=== PATIENT | female | born 2000 | race Caucasian/White ===

== ENCOUNTER 2022-12-22 09:01 | Outpatient (REF) | payer BC, SELFPAY ==
[2022-12-22 15:42] LABS: C. Difficile PCR NEGATIVE (NEGATIVE)
== END 2022-12-22 09:02 ==
LOC: LAB 09:01
PROVIDERS: PCP Family Medicine; Visit Provider Internal Medicine
DX: A04.72 Enterocolitis due to Clostridium difficile, not specified as recurrent (principal)
CPT/HCPCS: 87493

== ENCOUNTER 2023-01-08 09:49 | Outpatient (OUT) | payer BC, SELFPAY ==
--- NOTE | 2023-01-08 10:44 | PM.PRESUREVA ---
History of Present Illness History of Present Illness Chief complaint: PAT visit Narrative: Patient presents for preadmission testing. The patient states she has chronic abdominal and pelvic pain. She recently underwent two rounds of fecal microbial transplant to treat her C. difficile and states she is feeling better. She denies vomiting, fever, cough, or any other complaints. Review of Systems ROS Narrative REVIEW OF SYSTEMS: Negative except as stated in HPI, ten or more systems reviewed. Constitutional: No fever , chills, weakness ENT: No sore throat or epistaxis Cardiovascular: No edema, chest pain, palpitations, or activity intolerance Respiratory: No shortness of breath, cough, or wheezing Musculoskeletal: No joint pain or swelling Genitourinary: No dysuria or hematuria Neurological: No numbness, tingling, weakness, or headache Psychiatric: No mood changes PFSH PFS Medical History (Updated 01/08/23 @ 10:26 by Lynette Darden NP) Surgical History (Updated 01/08/23 @ 10:26 by Lynette Darden NP) Family History (Updated 01/08/23 @ 10:26 by Lynette Darden NP) Other Family history of hypertension Family history of prostate cancer Family history of stroke Social History (Updated 01/08/23 @ 10:12 by Lynette Darden NP) Within the past year, how often did you have a drink containing alcohol: never Score interpretation: A score less than 3 is consistent with normal alcohol consumption. 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 Highest level of school completed/degree received: Associate degree: occupational, technical, vocational program Meds Home Medications and Allergies Home Medications Medication Instructions Recorded Confirmed Type ergocalciferol (vitamin D2) 1,250 1,250 mcg PO QDAY 01/08/23 01/08/23 History mcg (50,000 unit) capsule escitalopram oxalate 10 mg tablet 10 mg PO DAILY 01/08/23 01/08/23 History (Lexapro) Allergies Allergy/AdvReac Type Severity Reaction Status Date / Time metronidazole [From Flagyl] Allergy Hives Verified 01/08/23 10:10 Exam Narrative Exam Narrative: Constitutional: Awake, alert, comfortable, well-appearing, nontoxic, interactive, vital signs as charted Head: Normocephalic, atraumatic Neck: Supple, normal appearance, normal range of motion, no meningeal signs, no lymphadenopathy Respiratory: No respiratory distress, breath sounds clear Cardiovascular: Regular rate and rhythm, strong and regular heart tones Abdomen: Nontender, normal bowel sounds, soft, no CVA tenderness Musculoskeletal: Normal gait, no swelling or edema Skin: No rashes or induration, no lesions, only visible skin inspected Neuro: No neurological deficits, normal sensation Psychiatric: Oriented ?3, normal affect Assessment and Plan Assessment and Plan (1) Abdominal pain: (2) Abnormal uterine bleeding: (3) Fallopian tube disorder: (4) Pelvic pain: Plan Diagnostic laparoscopy, chromopertubation, possible MARILOU, possible bilateral salpingo-oophorectomy, possible FOE scheduled with Dr. Burroughs 01/12/2023.
== END 2023-01-08 09:50 ==
PROVIDERS: PCP Family Medicine
DX: Z01.818 Encounter for other preprocedural examination (principal); R10.2 Pelvic and perineal pain; N93.9 Abnormal uterine and vaginal bleeding, unspecified; N83.9 Noninflammatory disorder of ovary, fallopian tube and broad ligament, unspecified
CPT/HCPCS: G0463

== ENCOUNTER 2023-01-12 10:48 | Day surgery (SDC) | payer BC, SELFPAY ==
[2023-01-08 10:13] VITALS: BP 100/66; PULSE 63; RESP 14; TEMP 36.4; O2SAT 98; BMI 19.6
[2023-01-12] VITALS (10 sets, daily range): BP systolic 89–112; BP diastolic 51–84; PULSE 55–83; RESP 12–28; TEMP 36.2; O2SAT 96–100; BMI 19.1
[2023-01-12 10:58] LABS: Hemoglobin 13.7 g/dL (12.0-16.0); Mean Corpuscular HGB Conc 34.3 g/dL (29.9-35.2); Mean Corpuscular Hemoglobin 31.5 pg (26.7-34.0); Mean Platelet Volume 10.1 fL (9.5-13.5); Platelet Count 193 10^3/uL (150-450); Red Blood Count 4.35 10^6/uL (4.20-5.40); Red Cell Distribution Width 11.6 % (11.0-15.0); White Blood Count 4.5 10^3/uL (4.0-11.0)
[2023-01-12 11:14] LABS: HCG Quantitative <1 mIU/mL
[2023-01-12] MEDS: LACTATED RINGER'S SOLUTION 1,000 ML 50 ML IV ×2 (11:41→13:54)
[2023-01-12] MEDS: METHYLENE BLUE 50 MG/10 ML AMPULE INJ (13:04)
--- NOTE | 2023-01-12 13:24 | OP_ITS ---
OPERATION DATE: ??01/12/2023 PROCEDURE:? Diagnostic laparoscopy with chromopertubation.? PREOPERATIVE DIAGNOSIS:? 1.? Pelvic pain. 2.? Possible tubal dysfunction. POSTOPERATIVE DIAGNOSIS: 1.? Pelvic pain. 2.? Possible tubal dysfunction. ANESTHESIA:? General. SURGEON:? Jeremiah Burroughs D.O. CODING MANAGER:? LEONOR Dill BLOOD LOSS:? 5 mL. URINE OUTPUT:? Yellow and clear. FINDINGS:? Normal appearing ovaries, uterus and tubes.? Endometriosis in the posterior cul-de-sac, as well as bladder, and a small piece on the right ovary.? Chromopertubation shows easy spillage from the patient?s left tube.? There, however, was some debris in the right tube, but was able to flushed out with the chromopertubation and, after some time, spillage from the fimbriated end could be seen.? PROCEDURE:? The patient was taken back to the Operating Room where she was placed in dorsal lithotomy position after given general anesthesia. The patient was prepped and draped in normal sterile fashion. A humi manipulator was placed into the patient's cervix and into the utuers.. Attention was turned to the patient's abdomen,where a small umbilical incision was made. The fascia was tented using Albertina clamps and the fascia was entered sharply. Confirmation of intra-abdominal placement of the 10 mm port was confirmed under direct visualization using a laparoscope. The patient's abdomen was then insufflated using CO2 gas with approximately 4 liters. A second port was placed left laterally. This was done under direct visualization with a 5 mm port. Survey of the patient's abdomen demonstrated normal liver and gallbladder. Survey of the patient's pelvic anatomy demonstrated normal appearing ovaries and tubes as well as normal appearing uterus. posterior culdesac endometrial implants could be noted, no evidence of any pelvic disease was seen, normal appearing pelvic cavity. Chromopertubation was performed with spillage from left side easily and delayed spillage from right side with gentle pressure. All instruments were removed from the patient's abdomen. The patient's abdomen was deinsufflated of CO2gas. The patient tolerated the procedure well. Sponge stick was removed from the patient's vagina. The patient's infraumbilical fascia was closed using #0 Vicryl on a GI needle. The patient's skin was closed laterally and infraumbilically using 4-0 Vicryl. The patient tolerated the procedure well. Sponge, lap and needle counts were correct x 2. The patient was taken to Recovery Room in stable condition.? MTDD
--- NOTE | 2023-01-12 13:35 | PC.NURSE ---
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
[2023-01-12] MEDS: MEPERIDINE HCL/PF 25 MG/ML VIAL IVP (13:56)
[2023-01-12] MEDS: HYDROMORPHONE HCL 0.5 MG/0.5 ML SYRINGE IV (14:11)
--- NOTE | 2023-01-12 14:19 | PC.NURSE ---
dressings x2 intact to abdomen with scant bloody drainage on both; peripad with scant bloody drainage
--- NOTE | 2023-01-12 14:23 | PC.NURSE ---
dressings x2 intact to abdomen with scant bloody drainage on both; peripad intact with scant bloody drainage
--- NOTE | 2023-01-12 14:31 | PC.NURSE ---
no change in assessment of drainage on dressings and peripad
--- NOTE | 2023-01-12 14:33 | PC.NURSE ---
medicated for pain as ordered
--- NOTE | 2023-01-12 14:43 | PC.NURSE ---
peripad has dcant bloody drainage; 2 abdominal dressings with scant bloody drainage on each; areas marked
--- NOTE | 2023-01-12 14:59 | PC.NURSE ---
no increase in assessment of wound drainage and no increase ofdrainage on peripad
--- NOTE | 2023-01-12 15:33 | PC.NURSE ---
up to bathroom and voided without difficulty with small amount bloody drainage noted in toliet without clots; no increase in drainage on abdominal dressings
== END 2023-01-12 15:30 | disposition home or self-care (01) ==
PROVIDERS: PCP Family Medicine; Visit Provider Obstetrics & Gynecology
PROC: (CPT 49320; principal; 2023-01-12 12:30)
DX: R10.2 Pelvic and perineal pain (principal); Z79.899 Other long term (current) drug therapy; N93.9 Abnormal uterine and vaginal bleeding, unspecified; R10.9 Unspecified abdominal pain
CPT/HCPCS: 49320; 58350; 36415; 84702; 85027; J1170; J2704

== ENCOUNTER 2023-03-22 09:41 | Outpatient (REF) | payer BC, SELFPAY ==
[2023-03-22 14:18] LABS: C. Difficile PCR POSITIVE (NEGATIVE)
== END 2023-03-22 09:42 | disposition home or self-care (01) ==
LOC: LAB 09:41
PROVIDERS: PCP Family Medicine
DX: R19.7 Diarrhea, unspecified (principal)
CPT/HCPCS: 87493

== ENCOUNTER 2023-03-24 11:18 | Outpatient (REF) | payer BC, SELFPAY ==
[2023-03-24 14:46] LABS: C. Difficile PCR NEGATIVE (NEGATIVE)
== END 2023-03-24 11:19 | disposition home or self-care (01) ==
LOC: LAB 11:18
PROVIDERS: PCP Family Medicine
DX: A04.72 Enterocolitis due to Clostridium difficile, not specified as recurrent (principal)
CPT/HCPCS: 87493

== ENCOUNTER 2023-03-27 14:58 | Outpatient (REF) | payer BC, SELFPAY | END 2023-03-27 14:59 | disposition home or self-care (01) | LOC: LAB 14:58 | PROVIDERS: PCP Family Medicine | DX: R19.7 Diarrhea, unspecified (principal) | CPT/HCPCS: 36415 ==

== ENCOUNTER 2023-04-01 15:55 | Emergency (ER) | payer BC, SELFPAY ==
[2023-04-01 16:02] VITALS: BP 115/70; PULSE 73; RESP 20; TEMP 36.7; O2SAT 99; BMI 19.8
--- NOTE | 2023-04-01 16:21 | ED.GENADUL1 ---
HPI - General Adult General Chief complaint: Abdominal Pain Stated complaint: Adbominal Pain Time Seen by Provider: 04/01/23 16:09 Source: patient Mode of arrival: walk-in Limitations: no limitations History of Present Illness HPI narrative: patient is a 22-year-old female presents to the Emergency Room with concerns of diarrhea, nausea and vomiting. Patient states she has had symptoms for the past week, was tested earlier in the week for C. difficile which was negative per patient. She sees a specialist to [facility] doctor Butler for GI- currently awaiting genetic testing for pancreatitis noted on CT scan. Patient presents today after having three episodes of diarrhea and noticing that her stool was pale/white appearing, denies blood or pus. She has had nausea this morning and one episode of vomiting. Patient took Zofran prior to arrival without relief of nausea. She denies any chest pain or shortness of breath. She reports a constant discomfort in her abdomen like doing a bunch of sit-ups. Currently 03/01. She's had prior surgeries for endometriosis. Patient appears in no distress. She denies any vaginal discharge denies dysuria. Onset (ago): week(s) Location: Reports abdomen Radiation: Reports non-radiation Pain Consistency: Reports constant Relieving factors: Reports none Exacerbating factors: Reports none Treatments prior to arrival: Reports none Related Data Home Medications Medication Instructions Recorded Confirmed escitalopram oxalate 10 mg tablet 10 mg PO DAILY 01/08/23 01/08/23 (Lexapro) Previous Rx's Medication Instructions Recorded ondansetron HCl 4 mg tablet 4 mg PO Q6H PRN nausea and 04/01/23 vomiting #12 tabs Allergies Allergy/AdvReac Type Severity Reaction Status Date / Time metronidazole [From Flagyl] Allergy Hives Verified 01/08/23 10:10 Review of Systems ROS Constitutional Denies: fever or chills Eyes Denies: change in vision Ears, nose, mouth, and throat Denies: throat pain or neck pain Cardiovascular Denies: chest pain, palpitations, edema or swelling of feet/ankles Respiratory Denies: shortness of breath, cough or wheezing Gastrointestinal Reports: abdominal pain, nausea, vomiting and diarrhea; Denies: coffee grounds in vomit, heartburn or excessive passing of gas Genitourinary Denies: painful urination Musculoskeletal Denies: back pain Integumentary/Breast Denies: rash Neurological Denies: headache, numbness in extremities or weakness in extremities Psychiatric Denies: anxiety Endocrine Denies: excessive urination Hematologic/Lymphatic Denies: easy bruising Allergic/Immunologic Denies: hives [facility] Medical History (Updated 04/01/23 @ 17:41 by SHELBY Flores) Surgical History (Updated 01/08/23 @ 10:26 by Lynette Darden NP) Family History (Updated 01/08/23 @ 10:26 by Lynette Darden NP) Other Family history of hypertension Family history of prostate cancer Family history of stroke Social History (Updated 01/12/23 @ 11:36 by Sita Scott RN) Within the past year, how often did you have a drink containing alcohol: never Score interpretation: A score less than 3 is consistent with normal alcohol consumption. 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 General: The patient appears well and in no apparent distress. Patient is resting comfortably on cart. Skin: Warm, dry, no pallor noted.no evidence of hives or rash. Head: Normocephalic, atraumatic Neck: Supple, trachea mid-line, no tenderness, no lymphadenopathy Eye: Pupils are equal, round and reactive to light, EOMI Ears, Nose, Mouth, and Throat: oral mucosa is moist, external exam unremarkable. Cardiovascular: Regular Rate and Rhythm Respiratory: Patient is in no distress, no accessory muscle use, lungs are clear to auscultation, no wheezing, rales or rhonchi. Chest Wall: no tenderness Back: non-tender, no CVA tenderness Musculoskeletal: normal ROM, no tenderness, no swelling GI: Normal bowel sounds, generalized tenderness to palpation, no guarding or rebound. Portal scars from exploratory laparotomy noted history of endometriosis Neurological: A&O x4 Psychiatric: Cooperative Constitutional Vital Signs, click to edit/add: Last Vital Signs Temp 98.1 F 04/01/23 16:02 Pulse 63 04/01/23 17:01 Resp 20 04/01/23 16:02 BP 94/69 04/01/23 17:01 Pulse Ox 100 04/01/23 17:01 O2 Del Method Room Air 04/01/23 16:02 Course Vital Signs Vital signs: Vital Signs Temperature 98.1 F 04/01/23 16:02 Pulse Rate 73 04/01/23 16:02 Respiratory Rate 20 04/01/23 16:02 Blood Pressure 115/70 04/01/23 16:02 Pulse Oximetry 99 04/01/23 16:02 Oxygen Delivery Method Room Air 04/01/23 16:02 Temperature 98.1 F 04/01/23 16:02 Pulse Rate 63 04/01/23 17:01 Respiratory Rate 20 04/01/23 16:02 Blood Pressure 94/69 04/01/23 17:01 Pulse Oximetry 100 04/01/23 17:01 Oxygen Delivery Method Room Air 04/01/23 16:02 Medical Decision Making MDM Narrative Medical decision making narrative: patient is had previous workup earlier this year for recurrent abdominal pain. Patient has had treatments for C. difficile with resolution. Concerned with white stools today, tested with diarrhea earlier in the week negative. Patient notes generalized abdominal soreness. She has had one CT per history of patient had clinical clinic, and is awaiting further testing with her gastrointestinal doctor. Patient medicated for pain here with Toradol, Levsin and Compazine given for nausea. patient reevaluated, no symptoms are improved, discussed laboratory studies. Patient be sent home with a prescription for Zofran as she is almost out. Patient has Bentyl and Levsin at home. She will notify her gastrointestinal surgeon of her complaints and her lab work done here today. Patient will return if symptoms worsen. abdomen nonsurgical The patient is to followup with primary care physician in next 2-3 days or to return to the emergency department should any of the signs or symptoms worsen or new symptoms develop. Patient had questions answered. The patient agrees with the following Diagnosis and Treatment plan and the patient will be discharged home. patient will be sent home with a outpatient order for gastrointestinal stool PCR Medical Records Medical records reviewed: Yes I reviewed the patient's medical records Medical records narrative: this year patient had gallbladder ultrasound, HIDA scann, and CT scan. Lab Data Labs: Lab Results 04/01/23 Range/Units 16:35 WBC 6.8 (4.0-11.0) 10^3/uL RBC 3.97 L (4.20-5.40) 10^6/uL Hgb 12.7 (12.0-16.0) g/dL Hct 36.4 (36.0-48.0) % MCV 91.7 (81.0-99.0) fL MCH 32.0 (26.7-34.0) pg MCHC 34.9 (29.9-35.2) g/dL RDW 11.5 (11.0-15.0) % Plt Count 194 (150-450) 10^3/uL MPV 10.7 (9.5-13.5) fL Neut % (Auto) 55.4 (43.0-75.0) % Lymph % (Auto) 35.3 (20.5-60.0) % Mcculloch % (Auto) 7.2 (1.7-12.0) % Eos % (Auto) 1.2 (0.9-7.0) % Baso % (Auto) 0.6 (0.2-2.0) % Neut # (Auto) 3.8 (1.4-6.5) 10^3/uL Lymph # (Auto) 2.4 (1.2-3.8) 10^3/uL Mcculloch # (Auto) 0.5 (0.3-0.8) 10^3/uL Eos # (Auto) 0.1 (0.0-0.7) 10^3/uL Baso # (Auto) 0.0 (0.0-0.1) 10^3/uL Abs Immat Gran (auto) 0.02 (0.00-0.03) 10^3/uL Imm/Tot Granulo (auto) 0.3 (0.0-0.5) % PT 10.9 (9.0-11.6) sec INR 1.03 Sodium 133 L (136-145) mmol/L Potassium 3.8 (3.5-5.1) mmol/L Chloride 101 (98-107) mmol/L Carbon Dioxide 24.0 (21.0-32.0) mmol/L Anion Gap 11.8 BUN 11.0 (7.0-18.0) mg/dL Creatinine 0.65 (0.55-1.02) mg/dL Est GFR ( Amer) >60 (>=60) Est GFR (Non-Af Amer) >60 (>=60) BUN/Creatinine Ratio 16.9 Glucose 87 (74-106) mg/dL Calcium 9.2 (8.5-10.1) mg/dL Magnesium 1.9 (1.8-2.4) mg/dL Total Bilirubin 0.7 (0.2-1.0) mg/dL AST 14 L (15-37) U/L ALT 15 (14-59) U/L Alkaline Phosphatase 43 L (46-116) U/L Total Protein 7.4 (6.4-8.2) g/dL Albumin 4.2 (3.4-5.0) g/dL Globulin 3.2 g/dL Albumin/Globulin Ratio 1.3 Lipase 41.0 L (73.0-393.0) U/L Serum HCG, Qual Negative (NEGATIVE) Discharge Plan Discharge Chief Complaint: Abdominal Pain Clinical Impression: Nausea, vomiting and diarrhea Patient Disposition: Home, Self-Care Time of Disposition Decision: 17:41 Condition: Good Prescriptions / Home Meds: New ondansetron HCl 4 mg tablet 4 mg PO Q6H PRN (Reason: nausea and vomiting) Qty: 12 0RF No Action escitalopram oxalate [Lexapro] 10 mg tablet 10 mg PO DAILY Instructions: Acute Abdominal Pain (ED) Additional Instructions: contact Dr. Butler office to discuss symptoms Stand Alone Forms: Portal Instructions Referrals: ESPERANZA NOGUERA [Primary Care Provider] - As soon as possible
[2023-04-01] MEDS: 0.9 % SODIUM CHLORIDE 1,000 ML 1000 ML IV (16:22)
[2023-04-01] MEDS: PROCHLORPERAZINE 10 MG/2 ML VIAL 5 MG IV (16:23)
--- NOTE | 2023-04-01 16:27 | PC.NURSE ---
pt presents to ED because pt states that she was out shopping today and walking around. pt states for the last week and a half she has had generalized abdominal pain and also has noticed that bowel movements have been pale in color and almost are white. pt does have hx of chronic pancreatitis and c-diff. also c/o n/v. pt does have zofran at home but not having any relief.
[2023-04-01] MEDS: FAMOTIDINE/PF 20 MG/2 ML VIAL IV (16:56)
[2023-04-01] MEDS: HYOSCYAMINE SULFATE 0.125 MG TAB.SUBL SL (16:57)
[2023-04-01] MEDS: KETOROLAC TROMETHAMINE 30 MG/ML VIAL 15 MG IVP (16:57)
[2023-04-01 17:01] VITALS: BP 94/69; PULSE 63; O2SAT 100
[2023-04-01 17:05] LABS: Basophils Percent Auto 0.6 % (0.2-2.0); Eosinophils Absolute Auto 0.1 10^3/uL (0.0-0.7); Eosinophils Percent Auto 1.2 % (0.9-7.0); Hematocrit 36.4 % (36.0-48.0); Hemoglobin 12.7 g/dL (12.0-16.0); Immature Granulocytes Abs Auto 0.02 10^3/uL (0.00-0.03); Immature Granulocytes Pct Auto 0.3 % (0.0-0.5); Lymphocytes Absolute Auto 2.4 10^3/uL (1.2-3.8); Lymphocytes Percent Auto 35.3 % (20.5-60.0); Mean Corpuscular HGB Conc 34.9 g/dL (29.9-35.2); Mean Corpuscular Volume 91.7 fL (81.0-99.0); Mean Platelet Volume 10.7 fL (9.5-13.5); Monocytes Absolute Auto 0.5 10^3/uL (0.3-0.8); Monocytes Percent Auto 7.2 % (1.7-12.0); Neutrophils Absolute Auto 3.8 10^3/uL (1.4-6.5); Neutrophils Percent Auto 55.4 % (43.0-75.0); Platelet Count 194 10^3/uL (150-450); Red Blood Count 3.97 10^6/uL (4.20-5.40); Red Cell Distribution Width 11.5 % (11.0-15.0); White Blood Count 6.8 10^3/uL (4.0-11.0)
[2023-04-01 17:25] LABS: INR 1.03; Prothrombin Time 10.9 sec (9.0-11.6)
[2023-04-01 17:32] LABS: Alanine Aminotransferase 15 U/L (14-59); Albumin Globulin Ratio 1.3; Albumin Level 4.2 g/dL (3.4-5.0); Alkaline Phosphatase 43 U/L (46-116); Anion Gap 11.8; Aspartate Amino Transferase 14 U/L (15-37); BUN Creatinine Ratio 16.9; Bilirubin Total 0.7 mg/dL (0.2-1.0); Calcium 9.2 mg/dL (8.5-10.1); Chloride 101 mmol/L (98-107); Estimated GFR (African America >60 (>=60); Estimated GFR (Non-African Ame >60 (>=60); Globulin 3.2 g/dL; Glucose 87 mg/dL (74-106); Magnesium 1.9 mg/dL (1.8-2.4); Potassium 3.8 mmol/L (3.5-5.1); Sodium 133 mmol/L (136-145); Total Protein 7.4 g/dL (6.4-8.2)
[2023-04-01 17:36] LABS: HCG Qualitative NEGATIVE (NEGATIVE)
[2023-04-01 17:45] LABS: Bilirubin Urine NEGATIVE (NEGATIVE); Blood Urine NEGATIVE (NEGATIVE); Clarity Urine CLEAR (CLEAR); Color Urine LT. YELLOW (YELLOW); Glucose Urine UA NEGATIVE (NEGATIVE); Ketones Urine 15 mg/dL (NEGATIVE); Leukocyte Esterase Urine NEGATIVE (NEGATIVE); Nitrite Urine NEGATIVE (NEGATIVE); Protein Urine NEGATIVE (NEG/TRACE); Urobilinogen Urine 0.2 EU/dL (0.2-1.0)
[2023-04-01 17:46] LABS: Urine Microscopic Indicated NO
== END 2023-04-01 17:50 | disposition home or self-care (01) ==
PROVIDERS: Personal Emergency Response Attendant; Emergency Provider Emergency Medicine; PCP Family Medicine
DX: R11.2 Nausea with vomiting, unspecified (principal); R19.7 Diarrhea, unspecified
CPT/HCPCS: 36415; 80053; 81003; 83690; 83735; 84703; 85025; 85610; 96361; 96374; 96375; 99285

== ENCOUNTER 2023-04-02 12:09 | Outpatient (REF) | payer BC, SELFPAY ==
[2023-04-02 12:30] LABS: Adenovirus F 40/41 NOT DETECTED (NOT DETECTE); Astrovirus NOT DETECTED (NOT DETECTE); Campylobacter NOT DETECTED (NOT DETECTE); Cryptosporidium NOT DETECTED (NOT DETECTE); Cyclospora cayetanensis NOT DETECTED (NOT DETECTE); Entamoeba histolytica NOT DETECTED (NOT DETECTE); Enteroaggregative E.coli NOT DETECTED (NOT DETECTE); Enteropathogenic E.coli NOT DETECTED (NOT DETECTE); Enterotoxigenic E. coli NOT DETECTED (NOT DETECTE); Giardia lamblia NOT DETECTED (NOT DETECTE); Norovirus GI/GII NOT DETECTED (NOT DETECTE); Plesiomonas shigelloides NOT DETECTED (NOT DETECTE); Rotavirus A NOT DETECTED (NOT DETECTE); Salmonella NOT DETECTED (NOT DETECTE); Sapovirus NOT DETECTED (NOT DETECTE); Shiga-like toxin-producing E.C NOT DETECTED (NOT DETECTE); Shigella/Enteroinvasive E.coli NOT DETECTED (NOT DETECTE); Vibrio NOT DETECTED (NOT DETECTE); Vibrio cholerae NOT DETECTED (NOT DETECTE); Yersinia enterocolitica NOT DETECTED (NOT DETECTE)
== END 2023-04-02 12:10 | disposition home or self-care (01) ==
LOC: LAB 12:09
PROVIDERS: PCP Family Medicine; Visit Provider Personal Emergency Response Attendant
DX: R19.7 Diarrhea, unspecified (principal)
CPT/HCPCS: 87507

== ENCOUNTER 2023-04-18 09:45 | Emergency (ER) | payer BC, SELFPAY ==
[2023-04-18] VITALS (8 sets, daily range): BP systolic 104–130; BP diastolic 67–86; PULSE 74–82; RESP 16–20; TEMP 36.7; O2SAT 97–100; BMI 19.7
--- NOTE | 2023-04-18 10:06 | ED_ITS ---
HPI - Abdominal Pain General Chief Complaint: Abdominal Pain Stated Complaint: TERRIBLE STOMACH PAIN Time Seen by Provider: 04/18/23 09:58 Source: patient Mode of arrival: walk-in Limitations: no limitations History of Present Illness HPI narrative: 22-year-old female presents for abdominal pain. It's in the upper abdomen and in particular the right upper quadrant area. She's had it for a few days. She's had issues with recurrent pancreatitis beginning at age 14. She doesn't know what has caused it but she states that it's not from alcohol. She's had a CAT scan earlier this year that she states showed some calcifications in part of the pancreas. No trauma or fever. She's been nauseous and vomited. The pain is moderate to severe at times. Related Data Home Medications Medication Instructions Recorded Confirmed escitalopram oxalate 10 mg tablet 10 mg PO DAILY 01/08/23 01/08/23 (Lexapro) Previous Rx's Medication Instructions Recorded ondansetron HCl 4 mg tablet 4 mg PO Q6H PRN nausea and 04/01/23 vomiting #12 tabs Allergies Allergy/AdvReac Type Severity Reaction Status Date / Time metronidazole [From Flagyl] Allergy Hives Verified 01/08/23 10:10 Review of Systems ROS Narrative A ten point review of systems is negative except as noted above. [facility] Medical History (Updated 04/18/23 @ 12:49 by Moe Panchal MD) Surgical History (Updated 01/08/23 @ 10:26 by Lynette Darden NP) Family History (Updated 01/08/23 @ 10:26 by Lynette Darden NP) Other Family history of hypertension Family history of prostate cancer Family history of stroke Social History (Updated 01/12/23 @ 11:36 by Sita Scott RN) Within the past year, how often did you have a drink containing alcohol: never Score interpretation: A score less than 3 is consistent with normal alcohol consumption. 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 General: The patient appears well and in no apparent distress. Patient is resting comfortably on cart. Skin: Warm, dry, no pallor noted. There is no rash noted. Head: Normocephalic, atraumatic Eye: Normal conjunctiva, no drainage Ears, Nose, Mouth, and Throat: oral mucosa is moist. Nares patent. Cardiovascular: Regular Rate and Rhythm Respiratory: Patient is in no distress, no accessory muscle use, lungs are clear to auscultation, no wheezing, rales or rhonchi Back: non-tender GI: no distention or masses. Tenderness present in the epigastric area going into the right upper quadrant. Musculoskeletal: The patient has no evidence of calf tenderness, no pitting edema, symmetrical pulses noted bilaterally Neurological: A&O, normal speech Psychiatric: Cooperative, tearful Constitutional Vital Signs, click to edit/add: Last Vital Signs Temp 98.0 F 04/18/23 09:56 Pulse 74 04/18/23 10:26 Resp 16 04/18/23 10:26 BP 111/70 04/18/23 12:00 Pulse Ox 100 04/18/23 12:00 O2 Del Method Room Air 04/18/23 10:26 Course Vital Signs Vital signs: Vital Signs Temperature 98.0 F 04/18/23 09:56 Pulse Rate 82 04/18/23 09:56 Respiratory Rate 20 04/18/23 09:56 Blood Pressure 130/86 04/18/23 09:56 Pulse Oximetry 100 04/18/23 09:56 Oxygen Delivery Method Room Air 04/18/23 09:56 Temperature 98.0 F 04/18/23 09:56 Pulse Rate 74 04/18/23 10:26 Respiratory Rate 16 04/18/23 10:26 Blood Pressure 111/70 04/18/23 12:00 Pulse Oximetry 100 04/18/23 12:00 Oxygen Delivery Method Room Air 04/18/23 10:26 MDM - Abdominal Pain MDM Narrative Medical decision making narrative: Blood work is negative. No evidence of acute pancreatitis. CAT scan suggests the possibility of colitis. She has no lower abdominal pain and has no vaginal discharge or dysuria or pelvic area discomfort. Her symptoms are only in the epigastric area and right upper quadrant. She was offered oral antibiotic for possible colitis but she prefers not to take them. 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 She'll monitor her symptoms and return for worsening symptoms or will call her family physician. Treatment diagnosis and follow-up were discussed with the patient. I also have no clinical suspicion of pelvic inflammatory disease. Differential Diagnosis Differential diagnosis: Likely abdominal pain, constipation, endometriosis, gastroenteritis, pancreatitis and other (colitis) Lab Data Attestation: I reviewed the patient's lab results. Labs: Lab Results 04/18/23 Range/Units 10:15 WBC 4.9 (4.0-11.0) 10^3/uL RBC 4.53 (4.20-5.40) 10^6/uL Hgb 14.6 (12.0-16.0) g/dL Hct 42.6 (36.0-48.0) % MCV 94.0 (81.0-99.0) fL MCH 32.2 (26.7-34.0) pg MCHC 34.3 (29.9-35.2) g/dL RDW 11.4 (11.0-15.0) % Plt Count 207 (150-450) 10^3/uL MPV 10.7 (9.5-13.5) fL Neut % (Auto) 45.1 (43.0-75.0) % Lymph % (Auto) 43.7 (20.5-60.0) % Mitchell % (Auto) 6.1 (1.7-12.0) % Eos % (Auto) 4.1 (0.9-7.0) % Baso % (Auto) 0.8 (0.2-2.0) % Neut # (Auto) 2.2 (1.4-6.5) 10^3/uL Lymph # (Auto) 2.1 (1.2-3.8) 10^3/uL Mitchell # (Auto) 0.3 (0.3-0.8) 10^3/uL Eos # (Auto) 0.2 (0.0-0.7) 10^3/uL Baso # (Auto) 0.0 (0.0-0.1) 10^3/uL Abs Immat Gran (auto) 0.01 (0.00-0.03) 10^3/uL Imm/Tot Granulo (auto) 0.2 (0.0-0.5) % Sodium 139 (136-145) mmol/L Potassium 4.0 (3.5-5.1) mmol/L Chloride 104 (98-107) mmol/L Carbon Dioxide 27.4 (21.0-32.0) mmol/L Anion Gap 11.6 BUN 11.0 (7.0-18.0) mg/dL Creatinine 0.67 (0.55-1.02) mg/dL Est GFR ( Amer) >60 (>=60) Est GFR (Non-Af Amer) >60 (>=60) BUN/Creatinine Ratio 16.4 Glucose 93 (74-106) mg/dL Calcium 9.0 (8.5-10.1) mg/dL Total Bilirubin 0.5 (0.2-1.0) mg/dL Direct Bilirubin 0.1 (0.0-0.2) mg/dL AST 14 L (15-37) U/L ALT 14 (14-59) U/L Alkaline Phosphatase 48 (46-116) U/L Total Protein 7.9 (6.4-8.2) g/dL Albumin 4.2 (3.4-5.0) g/dL Globulin 3.7 g/dL Albumin/Globulin Ratio 1.1 Amylase 43 (25-115) U/L Lipase 67.0 L (73.0-393.0) U/L Serum HCG, Qual Negative (NEGATIVE) Urine Color Lt. yellow (YELLOW) Urine Clarity Clear (CLEAR) Urine pH 6.5 (5.0-9.0) Ur Specific [place] 1.015 (1.005-1.025) Urine Protein 30 A (NEG/TRACE) mg/dL Urine Glucose (UA) Negative (NEGATIVE) mg/dL Urine Ketones Negative (NEGATIVE) mg/dL Urine Occult Blood Negative (NEGATIVE) Urine Nitrite Negative (NEGATIVE) Urine Bilirubin Negative (NEGATIVE) Urine Urobilinogen 0.2 (0.2-1.0) EU/dL Ur Leukocyte Esterase Negative (NEGATIVE) Urine RBC None seen (0-2) #/HPF Urine WBC None seen (NONE SEEN) #/HPF Ur Squamous Epith Cells Few A (NONE/RARE) #/LPF Urine Bacteria None seen (NONE SEEN) #/HPF Urine Mucus None seen (NONE SEEN) Imaging Data CT scan - abdomen: Radiologist's impression: Procedure: CT abdomen pelvis w con EXAM: CT abdomen pelvis w con; [id number] REASON FOR EXAM: RUQ abd pain TECHNIQUE: Helical CT images of the abdomen and pelvis were obtained after the administration of IV contrast. Multiplanar reformats were generated at the scanner. Dose reduction technique used: Automated exposure control and/or adjustment of the mA and/or kV according to patient size and/or use of iterative reconstruction technique. COMPARISON: [facility] 12/01/[address] abdomen/pelvis 10/18/2022. FINDINGS: Visualized Chest: No pleural effusion or any significant pulmonary findings. Abdomen: Liver: Within normal limits. Gallbladder: No calcified gallstones. No acute inflammatory changes. Bile Ducts: No significant biliary ductal dilatation. Pancreas: No mass, ductal dilatation, or inflammatory changes. Spleen: No splenomegaly or focal lesion. Adrenals: No nodules. Kidneys: -No stones or hydronephrosis. -Simple right renal cyst measuring 18 mm. Vascular: -Focal stenosis of the left renal vein as it passes between the aorta and the SMA (series 3 image 31). There is prominent pelvic vasculature. Lymph Nodes: No adenopathy. Abdominal Wall: No hernia or mass. Pelvis: Ill-defined fat stranding in the posterior pelvis. No mass or adenopathy. Bowel/Peritoneal Cavity/Mesentery: -Apparent wall thickening and perirectal fat stranding (for example series 3 image 110). The sigmoid appears within normal limits. -No bowel obstruction or significant ileus. -The appendix is normal.-No free air or free fluid. Musculoskeletal: No acute fracture or suspicious osseous lesion. IMPRESSION: 1. Ill-defined inflammatory changes in the pelvis centered around the rectum which appears to have moderate wall thickening. Findings are suspect for distal colitis, however, the differential also includes pelvic inflammatory disease. 2. No other potentially acute intra-abdominal abnormality demonstrated. 3. Prominent pelvic vasculature which could be reactive or physiologic versus pelvic congestion syndrome secondary to narrowing of the left renal vein as it passes between the SMA and aorta. Electronically authenticated by: LUIS RINCON Date: 04/18/2023 12:04 Discharge Plan Discharge Chief Complaint: Abdominal Pain Clinical Impression: Abdominal pain Patient Disposition: Home, Self-Care Time of Disposition Decision: 12:49 Condition: Good Mode of Transportation: Private Vehicle Prescriptions / Home Meds: No Action escitalopram oxalate [Lexapro] 10 mg tablet 10 mg PO DAILY ondansetron HCl 4 mg tablet 4 mg PO Q6H PRN (Reason: nausea and vomiting) Qty: 12 0RF Instructions: Abdominal Pain (ED) Additional Instructions: return or call your physician for worsening symptoms Stand Alone Forms: Portal Instructions Referrals: ESPERANZA NOGUERA [Primary Care Provider] - 1 week
[2023-04-18] MEDS: ONDANSETRON PF 4 MG/2 ML VIAL IV (10:22)
[2023-04-18] MEDS: MORPHINE SULFATE 4 MG/ML VIAL IV (10:22)
[2023-04-18 10:26] LABS: Bilirubin Urine NEGATIVE (NEGATIVE); Blood Urine NEGATIVE (NEGATIVE); Clarity Urine CLEAR (CLEAR); Color Urine LT. YELLOW (YELLOW); Glucose Urine UA NEGATIVE (NEGATIVE); Ketones Urine NEGATIVE (NEGATIVE); Leukocyte Esterase Urine NEGATIVE (NEGATIVE); Nitrite Urine NEGATIVE (NEGATIVE); Protein Urine 30 mg/dL (NEG/TRACE); Specific Gravity Urine 1.015 (1.005-1.025); Urobilinogen Urine 0.2 EU/dL (0.2-1.0); pH Urine 6.5 (5.0-9.0)
[2023-04-18 10:30] LABS: Basophils Percent Auto 0.8 % (0.2-2.0); Eosinophils Absolute Auto 0.2 10^3/uL (0.0-0.7); Eosinophils Percent Auto 4.1 % (0.9-7.0); Hematocrit 42.6 % (36.0-48.0); Hemoglobin 14.6 g/dL (12.0-16.0); Immature Granulocytes Abs Auto 0.01 10^3/uL (0.00-0.03); Immature Granulocytes Pct Auto 0.2 % (0.0-0.5); Lymphocytes Absolute Auto 2.1 10^3/uL (1.2-3.8); Lymphocytes Percent Auto 43.7 % (20.5-60.0); Mean Corpuscular HGB Conc 34.3 g/dL (29.9-35.2); Mean Corpuscular Hemoglobin 32.2 pg (26.7-34.0); Mean Platelet Volume 10.7 fL (9.5-13.5); Monocytes Absolute Auto 0.3 10^3/uL (0.3-0.8); Monocytes Percent Auto 6.1 % (1.7-12.0); Neutrophils Absolute Auto 2.2 10^3/uL (1.4-6.5); Neutrophils Percent Auto 45.1 % (43.0-75.0); Platelet Count 207 10^3/uL (150-450); Red Blood Count 4.53 10^6/uL (4.20-5.40); Red Cell Distribution Width 11.4 % (11.0-15.0); White Blood Count 4.9 10^3/uL (4.0-11.0)
[2023-04-18 10:39] LABS: Bacteria Urine NONE SEEN #/HPF (NONE SEEN); Mucus Urine NONE SEEN (NONE SEEN); RBC Urine NONE SEEN #/HPF (0-2); Squamous Epithelial Cell Urine FEW #/LPF (NONE/RARE); WBC Urine NONE SEEN #/HPF (NONE SEEN)
[2023-04-18 10:43] LABS: Alanine Aminotransferase 14 U/L (14-59); Albumin Globulin Ratio 1.1; Albumin Level 4.2 g/dL (3.4-5.0); Alkaline Phosphatase 48 U/L (46-116); Amylase 43 U/L (25-115); Anion Gap 11.6; Aspartate Amino Transferase 14 U/L (15-37); BUN Creatinine Ratio 16.4; Bilirubin Direct 0.1 mg/dL (0.0-0.2); Bilirubin Total 0.5 mg/dL (0.2-1.0); Carbon Dioxide 27.4 mmol/L (21.0-32.0); Chloride 104 mmol/L (98-107); Estimated GFR (African America >60 (>=60); Estimated GFR (Non-African Ame >60 (>=60); Globulin 3.7 g/dL; Glucose 93 mg/dL (74-106); Sodium 139 mmol/L (136-145); Total Protein 7.9 g/dL (6.4-8.2)
[2023-04-18 11:12] LABS: HCG Qualitative NEGATIVE (NEGATIVE)
--- NOTE | 2023-04-18 11:16 | CT_ITS ---
[address] [address] Patient Name: CHIOMA ALONZO MRN: [id number] date: 2000 Sex: F Assigned Patient Location: ER Current Patient Location: ER Accession/Order Number: [id number] Exam Date: 04/18/2023 11:28 Report Date: 04/18/2023 12:04 At the request of: ELVIE APODACA Procedure: CT abdomen pelvis w con EXAM: CT abdomen pelvis w con; [id number] REASON FOR EXAM: RUQ abd pain TECHNIQUE: Helical CT images of the abdomen and pelvis were obtained after the administration of IV contrast. Multiplanar reformats were generated at the scanner. Dose reduction technique used: Automated exposure control and/or adjustment of the mA and/or kV according to patient size and/or use of iterative reconstruction technique. COMPARISON: [facility] 12/01/[address] abdomen/pelvis 10/18/2022. FINDINGS: Visualized Chest: No pleural effusion or any significant pulmonary findings. Abdomen: Liver: Within normal limits. Gallbladder: No calcified gallstones. No acute inflammatory changes. Bile Ducts: No significant biliary ductal dilatation. Pancreas: No mass, ductal dilatation, or inflammatory changes. Spleen: No splenomegaly or focal lesion. Adrenals: No nodules. Kidneys: -No stones or hydronephrosis. -Simple right renal cyst measuring 18 mm. Vascular: -Focal stenosis of the left renal vein as it passes between the aorta and the SMA (series 3 image 31). There is prominent pelvic vasculature. Lymph Nodes: No adenopathy. Abdominal Wall: No hernia or mass. Pelvis: Ill-defined fat stranding in the posterior pelvis. No mass or adenopathy. Bowel/Peritoneal Cavity/Mesentery: -Apparent wall thickening and perirectal fat stranding (for example series 3 image 110). The sigmoid appears within normal limits. -No bowel obstruction or significant ileus. -The appendix is normal.-No free air or free fluid. Musculoskeletal: No acute fracture or suspicious osseous lesion. CT/CT abdomen pelvis w con IMPRESSION: 1. Ill-defined inflammatory changes in the pelvis centered around the rectum which appears to have moderate wall thickening. Findings are suspect for distal colitis, however, the differential also includes pelvic inflammatory disease. 2. No other potentially acute intra-abdominal abnormality demonstrated. 3. Prominent pelvic vasculature which could be reactive or physiologic versus pelvic congestion syndrome secondary to narrowing of the left renal vein as it passes between the SMA and aorta. Electronically authenticated by: LUIS RINCON Date: 04/18/2023 12:04
== END 2023-04-18 13:11 | disposition home or self-care (01) ==
PROVIDERS: Emergency Provider Emergency Medicine; PCP Family Medicine
DX: R10.11 Right upper quadrant pain (principal); R11.2 Nausea with vomiting, unspecified; R10.13 Epigastric pain
CPT/HCPCS: 36415; 74177; 80048; 80076; 81001; 82150; 83690; 84703; 85025; 99284; Q9967

== ENCOUNTER 2023-04-25 08:21 | Outpatient (OUT) | payer BC, SELFPAY ==
[2023-04-25 09:32] LABS: Free T4 0.98 ng/dL (0.76-1.46)
[2023-04-25 09:44] LABS: Free T3 3.17 pg/mL (2.18-3.98); Thyroid Stimulating Hormone 1.348 uIU/mL (0.358-3.740)
[2023-04-26 14:08] LABS: Insulin 5.9 uIU/mL (2.6-24.9)
[2023-05-01 13:07] LABS: Free Testosterone(Direct) 1.2 pg/mL (0.0-4.2); Testosterone 38 ng/dL (13-71)
== END 2023-04-25 08:22 | disposition home or self-care (01) ==
LOC: LAB 08:21
PROVIDERS: PCP Family Medicine; Visit Provider Family Medicine
DX: R23.2 Flushing (principal); R61 Generalized hyperhidrosis; E16.2 Hypoglycemia, unspecified
CPT/HCPCS: 36415; 83525; 84402; 84403; 84439; 84443; 84481

== ENCOUNTER 2023-05-08 15:57 | Emergency (ER) | payer BC, SELFPAY ==
[2023-05-08 16:00] VITALS: BP 144/74; PULSE 80; RESP 18; TEMP 37.2; O2SAT 100
--- NOTE | 2023-05-08 16:26 | ED_ITS ---
HPI - Abdominal Pain General Chief Complaint: Abdominal Pain Stated Complaint: Abdominal Pain Time Seen by Provider: 05/08/23 16:05 Source: patient Mode of arrival: walk-in Limitations: no limitations History of Present Illness HPI narrative: patient is a 22-year-old female with a history of recurrent pancreatitis since age 14 who presents to the Emergency Room for a two day history of pain in the right upper quadrant radiating into the right shoulder. She states she is concerned she may have pancreatitis again. She states it has been several years since her last exacerbation. She does not currently take any medications for her stomach. She is not concerned for , she does not take control, she has had no history of deep vein thrombosis or PE and has not had any upper respiratory symptoms, hemoptysis or extremity swelling. She states she had laparoscopic surgery four months ago for endometriosis. she denies fevers. She denies urinary symptoms. She has had vomiting and diarrhea. Related Data Home Medications Medication Instructions Recorded Confirmed escitalopram oxalate 10 mg tablet 10 mg PO DAILY 01/08/23 05/08/23 (Lexapro) Previous Rx's Medication Instructions Recorded dicyclomine 20 mg tablet 20 mg PO QID PRN abdominal pain 05/08/23 #12 tabs hydrocodone 5 mg-acetaminophen 325 1 tab PO Q6H PRN pain #12 tabs 05/08/23 mg tablet ondansetron 4 mg disintegrating 4 mg PO Q6H PRN nausea and 05/08/23 tablet vomiting #12 tabs pantoprazole 40 mg tablet,delayed 40 mg PO DAILY #7 tabs 05/08/23 release (Protonix) Allergies Allergy/AdvReac Type Severity Reaction Status Date / Time metronidazole [From Flagyl] Allergy Hives Verified 01/08/23 10:10 Review of Systems ROS Constitutional Denies: fever or chills Ears, nose, mouth, and throat Denies: throat pain Cardiovascular Denies: chest pain Respiratory Denies: shortness of breath or cough Gastrointestinal Reports: abdominal pain, nausea, vomiting and diarrhea Genitourinary Denies: painful urination Musculoskeletal Reports: back pain; Denies: neck pain Integumentary/Breast Denies: rash Neurological Denies: headache Endocrine Denies: excessive urination Allergic/Immunologic Denies: hives [facility] Medical History (Updated 05/08/23 @ 17:36 by SHELBY Junior) Abdominal pain ?R10.9 - Unspecified abdominal pain (ICD-10) Abnormal uterine bleeding ?N93.9 - Abnormal uterine and vaginal bleeding, unspecified (ICD-10) Acute sinusitis due to respiratory syncytial virus (RSV) ?J01.90 - Acute sinusitis, unspecified (ICD-10) ?B97.4 - Respiratory syncytial virus as the cause of diseases classified elsewhere (ICD-10) Altered bowel function ?R19.8 - Other specified symptoms and signs involving the digestive system and abdomen (ICD-10) Anxiety ?F41.9 - Anxiety disorder, unspecified (ICD-10) Back pain ?M54.9 - Dorsalgia, unspecified (ICD-10) Clostridium difficile infection ?A49.8 - Other bacterial infections of unspecified site (ICD-10) COVID-19 ?U07.1 - COVID-19 (ICD-10) Dehydration ?E86.0 - Dehydration (ICD-10) Depression ?F32.A - Depression, unspecified (ICD-10) Diarrhea ?R19.7 - Diarrhea, unspecified (ICD-10) Epigastric pain ?R10.13 - Epigastric pain (ICD-10) Fallopian tube disorder ?N83.9 - Noninflammatory disorder of ovary, fallopian tube and broad ligament, unspecified (ICD-10) Fatigue ?R53.83 - Other fatigue (ICD-10) GERD (gastroesophageal reflux disease) ?K21.9 - Gastro-esophageal reflux disease without esophagitis (ICD-10) IBS (irritable bowel syndrome) ?K58.9 - Irritable bowel syndrome without diarrhea (ICD-10) Insomnia ?G47.00 - Insomnia, unspecified (ICD-10) Low vitamin D level ?R79.89 - Other specified abnormal findings of blood chemistry (ICD-10) Muscle weakness ?M62.81 - Muscle weakness (generalized) (ICD-10) Nausea ?R11.0 - Nausea (ICD-10) Ovarian cyst ?N83.209 - Unspecified ovarian cyst, unspecified side (ICD-10) Palpitations ?R00.2 - Palpitations (ICD-10) Pancreatitis ?K85.90 - Acute pancreatitis without necrosis or infection, unspecified (ICD- 10) Paresthesia ?R20.2 - Paresthesia of skin (ICD-10) Paresthesia and pain of extremity ?R20.2 - Paresthesia of skin (ICD-10) ?M79.609 - Pain in unspecified limb (ICD-10) Pelvic pain ?R10.2 - Pelvic and perineal pain (ICD-10) Pleurisy ?R09.1 - Pleurisy (ICD-10) Shoulder pain ?M25.519 - Pain in unspecified shoulder (ICD-10) 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 - Personal history of other medical treatment (ICD-10) Syncope ?R55 - Syncope and collapse (ICD-10) Surgical History (Updated 01/08/23 @ 10:26 by Lynette Darden NP) History of colonoscopy ?Z98.890 - Other specified postprocedural states (ICD-10) History of esophagogastroduodenoscopy (EGD) ?Z98.890 - Other specified postprocedural states (ICD-10) History of removal of skin mole ?Z98.890 - Other specified postprocedural states (ICD-10) ?Z87.2 - Personal history of diseases of the skin and subcutaneous tissue (ICD-10) History of wisdom tooth extraction ?K08.409 - Partial loss of teeth, unspecified cause, unspecified class (ICD- 10) Family History (Updated 01/08/23 @ 10:26 by Lynetet Darden NP) Other Family history of hypertension Family history of prostate cancer Family history of stroke Social History Within the past year, how often did you have a drink containing alcohol: never Score interpretation: A score less than 3 is consistent with normal alcohol consumption. 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 Highest level of school completed/degree received: Associate degree: occupational, technical, vocational program Exam Narrative Exam Narrative: Gen.: Awake, alert, in no distress Head: Normocephalic, atraumatic ENT: Moist mucous membranes Respiratory: No respiratory distress, lungs clear bilaterally Cardio: Regular rate and rhythm Gastrointestinal: Abdomen is soft, nondistended and tender to palpation in the right upper quadrant and epigastrium with voluntary guarding, no rebound Extremities: Moves extremities equally, no extremity swelling Psych: Normal mood and affect Neuro: No focal neuro deficit Skin: Warm, dry, intact Constitutional Vital Signs, click to edit/add: Last Vital Signs Temp 98.9 F 05/08/23 16:00 Pulse 80 05/08/23 16:00 Resp 18 05/08/23 16:00 BP 144/74 H 05/08/23 16:00 Pulse Ox 100 05/08/23 16:00 Course Vital Signs Vital signs: Vital Signs Temperature 98.9 F 05/08/23 16:00 Pulse Rate 80 05/08/23 16:00 Respiratory Rate 18 05/08/23 16:00 Blood Pressure 144/74 H 05/08/23 16:00 Pulse Oximetry 100 05/08/23 16:00 Temperature 98.9 F 05/08/23 16:00 Pulse Rate 80 05/08/23 16:00 Respiratory Rate 18 05/08/23 16:00 Blood Pressure 144/74 H 05/08/23 16:00 Pulse Oximetry 100 05/08/23 16:00 MDM - Abdominal Pain MDM Narrative Medical decision making narrative: patient treated with IV fluids, Dilaudid, Zofran, Pepcid. Her lab studies including LFTs, bilirubin, lipase and amylase are unremarkable. No evidence of pancreatitis at this time. Patient had a CT scan of her abdomen and pelvis two weeks ago in this emergency department. She would like to defer additional imaging which is appropriate. She has no PE risk factors. Vital signs are stable and abdomen is soft and benign on recheck by attending physician. Patient will be discharged home with a short course of analgesics, Protonix, Zofran. Follow- up with gastrointestinal as scheduled and returnn to the Emergency Room if symptoms change or worsen. Medical Records Attestation: I reviewed the patient's medical records. Lab Data Attestation: I reviewed the patient's lab results. Labs: Lab Results 05/08/23 Range/Units 16:36 WBC 4.1 (4.0-11.0) 10^3/uL RBC 3.89 L (4.20-5.40) 10^6/uL Hgb 12.4 (12.0-16.0) g/dL Hct 36.2 (36.0-48.0) % MCV 93.1 (81.0-99.0) fL MCH 31.9 (26.7-34.0) pg MCHC 34.3 (29.9-35.2) g/dL RDW 11.8 (11.0-15.0) % Plt Count 154 (150-450) 10^3/uL MPV 10.9 (9.5-13.5) fL Neut % (Auto) 60.5 (43.0-75.0) % Lymph % (Auto) 24.4 (20.5-60.0) % Pope % (Auto) 11.0 (1.7-12.0) % Eos % (Auto) 3.2 (0.9-7.0) % Baso % (Auto) 0.7 (0.2-2.0) % Neut # (Auto) 2.5 (1.4-6.5) 10^3/uL Lymph # (Auto) 1.0 L (1.2-3.8) 10^3/uL Pope # (Auto) 0.5 (0.3-0.8) 10^3/uL Eos # (Auto) 0.1 (0.0-0.7) 10^3/uL Baso # (Auto) 0.0 (0.0-0.1) 10^3/uL Abs Immat Gran (auto) 0.01 (0.00-0.03) 10^3/uL Imm/Tot Granulo (auto) 0.2 (0.0-0.5) % Sodium 138 (136-145) mmol/L Potassium 3.3 L (3.5-5.1) mmol/L Chloride 103 (98-107) mmol/L Carbon Dioxide 27.3 (21.0-32.0) mmol/L Anion Gap 11.0 BUN 15.0 (7.0-18.0) mg/dL Creatinine 0.70 (0.55-1.02) mg/dL Est GFR ( Amer) >60 (>=60) Est GFR (Non-Af Amer) >60 (>=60) BUN/Creatinine Ratio 21.4 Glucose 99 (74-106) mg/dL Lactate 0.6 (0.4-2.0) mmol/L Calcium 9.1 (8.5-10.1) mg/dL Total Bilirubin 0.4 (0.2-1.0) mg/dL AST 16 (15-37) U/L ALT 15 (14-59) U/L Alkaline Phosphatase 50 (46-116) U/L Total Protein 7.6 (6.4-8.2) g/dL Albumin 4.1 (3.4-5.0) g/dL Globulin 3.5 g/dL Albumin/Globulin Ratio 1.2 Amylase 43 (25-115) U/L Lipase 28.0 (16.0-77.0) U/L Serum HCG, Qual Negative (NEGATIVE) Discharge Plan Discharge Chief Complaint: Abdominal Pain Clinical Impression: Abdominal pain Patient Disposition: Home, Self-Care Time of Disposition Decision: 17:36 Condition: Good Prescriptions / Home Meds: New hydrocodone-acetaminophen 5-325 mg tablet 1 tab PO Q6H PRN (Reason: pain) Qty: 12 0RF dicyclomine 20 mg tablet 20 mg PO QID PRN (Reason: abdominal pain) Qty: 12 0RF pantoprazole [Protonix] 40 mg tablet,delayed release (DR/EC) 40 mg PO DAILY Qty: 7 0RF ondansetron 4 mg tablet,disintegrating 4 mg PO Q6H PRN (Reason: nausea and vomiting) Qty: 12 0RF No Action escitalopram oxalate [Lexapro] 10 mg tablet 10 mg PO DAILY Instructions: Abdominal Pain (ED) Stand Alone Forms: Portal Instructions Referrals: ESPERANZA NOGUERA [Primary Care Provider] - 1 week
[2023-05-08] MEDS: 0.9 % SODIUM CHLORIDE 1,000 ML 999 ML IV (16:56)
[2023-05-08] MEDS: FAMOTIDINE/PF 20 MG/2 ML VIAL IV (16:59)
[2023-05-08] MEDS: ONDANSETRON PF 4 MG/2 ML VIAL IV (16:59)
[2023-05-08] MEDS: HYDROMORPHONE HCL 1 MG/ML CARTRIDGE IVP (16:59)
[2023-05-08 17:03] LABS: Basophils Percent Auto 0.7 % (0.2-2.0); Eosinophils Absolute Auto 0.1 10^3/uL (0.0-0.7); Eosinophils Percent Auto 3.2 % (0.9-7.0); Hematocrit 36.2 % (36.0-48.0); Hemoglobin 12.4 g/dL (12.0-16.0); Immature Granulocytes Abs Auto 0.01 10^3/uL (0.00-0.03); Immature Granulocytes Pct Auto 0.2 % (0.0-0.5); Lymphocytes Percent Auto 24.4 % (20.5-60.0); Mean Corpuscular HGB Conc 34.3 g/dL (29.9-35.2); Mean Corpuscular Hemoglobin 31.9 pg (26.7-34.0); Mean Corpuscular Volume 93.1 fL (81.0-99.0); Mean Platelet Volume 10.9 fL (9.5-13.5); Monocytes Absolute Auto 0.5 10^3/uL (0.3-0.8); Neutrophils Absolute Auto 2.5 10^3/uL (1.4-6.5); Neutrophils Percent Auto 60.5 % (43.0-75.0); Platelet Count 154 10^3/uL (150-450); Red Blood Count 3.89 10^6/uL (4.20-5.40); Red Cell Distribution Width 11.8 % (11.0-15.0); White Blood Count 4.1 10^3/uL (4.0-11.0)
[2023-05-08 17:11] LABS: HCG Qualitative NEGATIVE (NEGATIVE)
[2023-05-08 17:14] LABS: Lactate/Lactic Acid 0.6 mmol/L (0.4-2.0)
[2023-05-08 17:21] LABS: Alanine Aminotransferase 15 U/L (14-59); Albumin Globulin Ratio 1.2; Albumin Level 4.1 g/dL (3.4-5.0); Alkaline Phosphatase 50 U/L (46-116); Amylase 43 U/L (25-115); Aspartate Amino Transferase 16 U/L (15-37); BUN Creatinine Ratio 21.4; Bilirubin Total 0.4 mg/dL (0.2-1.0); Calcium 9.1 mg/dL (8.5-10.1); Carbon Dioxide 27.3 mmol/L (21.0-32.0); Chloride 103 mmol/L (98-107); Estimated GFR (African America >60 (>=60); Estimated GFR (Non-African Ame >60 (>=60); Globulin 3.5 g/dL; Glucose 99 mg/dL (74-106); Potassium 3.3 mmol/L (3.5-5.1); Sodium 138 mmol/L (136-145); Total Protein 7.6 g/dL (6.4-8.2)
[2023-05-08 17:49] VITALS: BP 116/65; PULSE 78; RESP 16; O2SAT 99
== END 2023-05-08 17:55 | disposition home or self-care (01) ==
PROVIDERS: Physician Assistant; Emergency Provider Emergency Medicine; PCP Family Medicine
DX: R10.9 Unspecified abdominal pain (principal); F41.9 Anxiety disorder, unspecified; Z86.16 Personal history of COVID-19; F32.A Depression, unspecified; K21.9 Gastro-esophageal reflux disease without esophagitis; K58.9 Irritable bowel syndrome, unspecified; G47.00 Insomnia, unspecified; Z92.89 Personal history of other medical treatment; Z98.890 Other specified postprocedural states; F12.90 Cannabis use, unspecified, uncomplicated; Z79.899 Other long term (current) drug therapy
CPT/HCPCS: 36415; 80053; 82150; 83605; 83690; 84703; 85025; 96374; 96375; 99285; J1170

== ENCOUNTER 2023-10-23 07:14 | Emergency (ER) | payer BC, SELFPAY ==
[2023-10-23 07:24] VITALS: BP 127/69; PULSE 71; TEMP 36.4; O2SAT 100; BMI 19.7
--- NOTE | 2023-10-23 07:35 | ECG_ITS ---
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
--- NOTE | 2023-10-23 07:35 | XR_ITS ---
The [address] [address] Patient Name: CHIOMA ALONZO MRN: [id number] date: 2000 Sex: F Assigned Patient Location: ER Current Patient Location: ER Accession/Order Number: [id number] Exam Date: 10/23/2023 07:59 Report Date: 10/23/2023 08:26 At the request of: ELVIE APODACA Procedure: XR chest 1V EXAMINATION: XR chest 1V HISTORY: Palpitations , bradycardia COMPARISON: XR RIBS with PA chest 03/11/2021 FINDINGS: LUNGS: Mild haziness within medial right lung base partially obscuring the bronchovascular markings. VASCULATURE: No increased pulmonary vasculature. PLEURA: No pneumothorax, effusion, or pleural thickening. CARDIAC: No cardiomegaly or cardiac silhouette abnormality. MEDIASTINUM: No visible mass or adenopathy. BONES: No fracture or visible bone lesion. OTHER: Negative. XR/XR chest 1V IMPRESSION: 1. Mild infiltrates versus atelectasis within medial right lung base. Although this could represent overlying soft tissue summation artifact, lung parenchymal findings are favored. Electronically authenticated by: AZAEL GRIFFIN Date: 10/23/2023 08:26
--- NOTE | 2023-10-23 07:35 | ED.ARRPALP1 ---
HPI - Arrhythmia/Palpitations General Chief Complaint: Arrhythmia/Palpitations Stated Complaint: LOW HEART RATE, WEAK Time Seen by Provider: 10/23/23 07:20 Source: patient Mode of arrival: walk-in Limitations: no limitations History of Present Illness HPI narrative: 22-year-old female presented for low heart rate. She checked her heart rate at home because she was feeling somewhat dizzy and it was reading low. She recently saw the driver license reviewing officer for medical clearance for cholecystectomy and she was cleared for surgery. She appears to have worn a heart rate monitor. She has had no fever or syncope. No vomiting or abdominal pain but she has chronic diarrhea. Related Data Home Medications ?Medication ?Instructions ?Recorded ?Confirmed escitalopram oxalate 10 mg tablet 10 mg PO DAILY 01/08/23 05/08/23 (Lexapro) Previous Rx's ?Medication ?Instructions ?Recorded dicyclomine 20 mg tablet 20 mg PO QID PRN abdominal pain 05/08/23 #12 tabs hydrocodone 5 mg-acetaminophen 325 1 tab PO Q6H PRN pain #12 tabs 05/08/23 mg tablet ondansetron 4 mg disintegrating 4 mg PO Q6H PRN nausea and 05/08/23 tablet vomiting #12 tabs pantoprazole 40 mg tablet,delayed 40 mg PO DAILY #7 tabs 05/08/23 release (Protonix) Allergies Allergy/AdvReac Type Severity Reaction Status Date / Time metronidazole [From Flagyl] Allergy Hives Verified 01/08/23 10:10 Review of Systems ROS Narrative A ten point review of systems is negative except as noted above. She has chronic diarrhea [facility] Medical History (Updated 10/23/23 @ 08:47 by Moe Panchal MD) Epigastric pain ?R10.13 - Epigastric pain (ICD-10) Nausea ?R11.0 - Nausea (ICD-10) Acute sinusitis due to respiratory syncytial virus (RSV) ?J01.90 - Acute sinusitis, unspecified (ICD-10) ?B97.4 - Respiratory syncytial virus as the cause of diseases classified elsewhere (ICD-10) Shoulder pain ?M25.519 - Pain in unspecified shoulder (ICD-10) Syncope ?R55 - Syncope and collapse (ICD-10) Paresthesia and pain of extremity ?R20.2 - Paresthesia of skin (ICD-10) ?M79.609 - Pain in unspecified limb (ICD-10) Paresthesia ?R20.2 - Paresthesia of skin (ICD-10) Back pain ?M54.9 - Dorsalgia, unspecified (ICD-10) Insomnia ?G47.00 - Insomnia, unspecified (ICD-10) Depression ?F32.A - Depression, unspecified (ICD-10) Anxiety ?F41.9 - Anxiety disorder, unspecified (ICD-10) COVID-19 ?U07.1 - COVID-19 (ICD-10) Pleurisy ?R09.1 - Pleurisy (ICD-10) IBS (irritable bowel syndrome) ?K58.9 - Irritable bowel syndrome without diarrhea (ICD-10) GERD (gastroesophageal reflux disease) ?K21.9 - Gastro-esophageal reflux disease without esophagitis (ICD-10) Palpitations ?R00.2 - Palpitations (ICD-10) Low vitamin D level ?R79.89 - Other specified abnormal findings of blood chemistry (ICD-10) Fatigue ?R53.83 - Other fatigue (ICD-10) Ovarian cyst ?N83.209 - Unspecified ovarian cyst, unspecified side (ICD-10) Pancreatitis ?K85.90 - Acute pancreatitis without necrosis or infection, unspecified (ICD-10) Abdominal pain ?R10.9 - Unspecified abdominal pain (ICD-10) Altered bowel function ?R19.8 - Other specified symptoms and signs involving the digestive system and abdomen (ICD-10) Diarrhea ?R19.7 - Diarrhea, unspecified (ICD-10) Abnormal uterine bleeding ?N93.9 - Abnormal uterine and vaginal bleeding, unspecified (ICD-10) Pelvic pain ?R10.2 - Pelvic and perineal pain (ICD-10) Fallopian tube disorder ?N83.9 - Noninflammatory disorder of ovary, fallopian tube and broad ligament, unspecified (ICD-10) Muscle weakness ?M62.81 - Muscle weakness (generalized) (ICD-10) Dehydration ?E86.0 - Dehydration (ICD-10) Clostridium difficile infection ?A49.8 - Other bacterial infections of unspecified site (ICD-10) 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 - Personal history of other medical treatment (ICD-10) Surgical History (Updated 01/08/23 @ 10:26 by Lynette Darden NP) History of removal of skin mole ?Z98.890 - Other specified postprocedural states (ICD-10) ?Z87.2 - Personal history of diseases of the skin and subcutaneous tissue (ICD-10) History of wisdom tooth extraction ?K08.409 - Partial loss of teeth, unspecified cause, unspecified class (ICD-10) History of esophagogastroduodenoscopy (EGD) ?Z98.890 - Other specified postprocedural states (ICD-10) History of colonoscopy ?Z98.890 - Other specified postprocedural states (ICD-10) Family History (Updated 01/08/23 @ 10:26 by Lynette Darden NP) Other Family history of hypertension Family history of prostate cancer Family history of stroke Social History Within the past year, how often did you have a drink containing alcohol: never Score interpretation: A score less than 3 is consistent with normal alcohol consumption. 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 General: The patient appears well and in no apparent distress. Patient is resting comfortably on cart. Skin: Warm, dry, no pallor noted. There is no rash noted. Head: Normocephalic, atraumatic Eye: Normal conjunctiva, no drainage Ears, Nose, Mouth, and Throat: oral mucosa is moist. Nares patent. Cardiovascular: Regular Rate and Rhythm Respiratory: Patient is in no distress, no accessory muscle use, lungs are clear to auscultation, no wheezing, rales or rhonchi Back: non-tender GI: Soft and nontender Musculoskeletal: The patient has no evidence of calf tenderness, no pitting edema, symmetrical pulses noted bilaterally Neurological: A&O, normal speech Psychiatric: Cooperative Constitutional Vital Signs, click to edit/add: Last Vital Signs Temp 97.6 F 10/23/23 07:24 Pulse 71 10/23/23 07:24 Resp 16 10/23/23 07:24 BP 127/69 10/23/23 07:24 Pulse Ox 100 10/23/23 07:24 O2 Del Method Room Air 10/23/23 07:24 Course Vital Signs Vital signs: Vital Signs Temperature 97.6 F 10/23/23 07:24 Pulse Rate 71 10/23/23 07:24 Respiratory Rate 16 10/23/23 07:24 Blood Pressure 127/69 10/23/23 07:24 Pulse Oximetry 100 10/23/23 07:24 Oxygen Delivery Method Room Air 10/23/23 07:24 Temperature 97.6 F 10/23/23 07:24 Pulse Rate 71 10/23/23 07:24 Respiratory Rate 16 10/23/23 07:24 Blood Pressure 127/69 10/23/23 07:24 Pulse Oximetry 100 10/23/23 07:24 Oxygen Delivery Method Room Air 10/23/23 07:24 MDM - Arrhythmia/Palpitations MDM Narrative Medical decision making narrative: The patient had bigeminy upon arrival and this was captured on the EKG. She is now back in a sinus rhythm. Workup including electrolytes and troponin and chest x-ray is negative. She is seeing a driver license reviewing officer and is scheduled to have an echocardiogram performed and she will follow-up with the driver license reviewing officer. Findings were discussed with the patient and her mother. Differential Diagnosis Differential diagnosis: Likely other (Atrial fibrillation, atrial flutter, bigeminy, PVCs) Lab Data Attestation: I reviewed the patient's lab results. Labs: Lab Results 10/23/23 Range/Units 07:34 WBC 5.5 (4.0-11.0) 10^3/uL RBC 4.15 L (4.20-5.40) 10^6/uL Hgb 13.4 (12.0-16.0) g/dL Hct 38.9 (36.0-48.0) % MCV 93.7 (81.0-99.0) fL MCH 32.3 (26.7-34.0) pg MCHC 34.4 (29.9-35.2) g/dL RDW 11.7 (11.0-15.0) % Plt Count 191 (150-450) 10^3/uL MPV 10.6 (9.5-13.5) fL Neut % (Auto) 50.1 (43.0-75.0) % Lymph % (Auto) 37.0 (20.5-60.0) % [place] % (Auto) 8.0 (1.7-12.0) % Eos % (Auto) 4.0 (0.9-7.0) % Baso % (Auto) 0.7 (0.2-2.0) % Neut # (Auto) 2.8 (1.4-6.5) 10^3/uL Lymph # (Auto) 2.0 (1.2-3.8) 10^3/uL [place] # (Auto) 0.4 (0.3-0.8) 10^3/uL Eos # (Auto) 0.2 (0.0-0.7) 10^3/uL Baso # (Auto) 0.0 (0.0-0.1) 10^3/uL Abs Immat Gran (auto) 0.01 (0.00-0.03) 10^3/uL Imm/Tot Granulo (auto) 0.2 (0.0-0.5) % Sodium 140 (136-145) mmol/L Potassium 3.6 (3.5-5.1) mmol/L Chloride 103 (98-107) mmol/L Carbon Dioxide 25.2 (21.0-32.0) mmol/L Anion Gap 15.4 BUN 14.0 (7.0-18.0) mg/dL Creatinine 0.74 (0.55-1.02) mg/dL Est GFR ( Amer) >60 (>=60) Est GFR (Non-Af Amer) >60 (>=60) BUN/Creatinine Ratio 18.9 Glucose 101 (74-106) mg/dL Calcium 9.1 (8.5-10.1) mg/dL Magnesium 2.0 (1.8-2.4) mg/dL Troponin I High Sens 12.9 (4.0-51.3) pg/mL Imaging Data Chest x-ray: Radiologist's impression: ITS Impressions Chest X-Ray 10/23/23 07:35 IMPRESSION: 1. Mild infiltrates versus atelectasis within medial right lung base. Although this could represent overlying soft tissue summation artifact, lung parenchymal findings are favored. Electronically authenticated by: AZAEL GRIFFIN Date: 10/23/2023 08:26 ECG Data Attestation: I personally reviewed and interpreted this ECG as follows: (EKG on my interpretation shows bigeminy) Discharge Plan Discharge Stand Alone Forms: Portal Instructions Chief Complaint: Arrhythmia/Palpitations Clinical Impression: Palpitations, Bigeminy Patient Disposition: Home, Self-Care Time of Disposition Decision: 08:47 Condition: Good Mode of Transportation: Private Vehicle Prescriptions / Home Meds: No Action escitalopram oxalate [Lexapro] 10 mg tablet 10 mg PO DAILY hydrocodone-acetaminophen 5-325 mg tablet 1 tab PO Q6H PRN (Reason: pain) Qty: 12 0RF dicyclomine 20 mg tablet 20 mg PO QID PRN (Reason: abdominal pain) Qty: 12 0RF pantoprazole [Protonix] 40 mg tablet,delayed release (DR/EC) 40 mg PO DAILY Qty: 7 0RF ondansetron 4 mg tablet,disintegrating 4 mg PO Q6H PRN (Reason: nausea and vomiting) Qty: 12 0RF Print Language: Luxembourgish Instructions: Heart Palpitations (ED) Additional Instructions: Follow-up with your driver license reviewing officer Referrals: ESPERANZA NOGUERA [Primary Care Provider] - 1 week
[2023-10-23 07:45] LABS: Basophils Percent Auto 0.7 % (0.2-2.0); Eosinophils Absolute Auto 0.2 10^3/uL (0.0-0.7); Hematocrit 38.9 % (36.0-48.0); Hemoglobin 13.4 g/dL (12.0-16.0); Immature Granulocytes Abs Auto 0.01 10^3/uL (0.00-0.03); Immature Granulocytes Pct Auto 0.2 % (0.0-0.5); Mean Corpuscular HGB Conc 34.4 g/dL (29.9-35.2); Mean Corpuscular Hemoglobin 32.3 pg (26.7-34.0); Mean Corpuscular Volume 93.7 fL (81.0-99.0); Mean Platelet Volume 10.6 fL (9.5-13.5); Monocytes Absolute Auto 0.4 10^3/uL (0.3-0.8); Neutrophils Absolute Auto 2.8 10^3/uL (1.4-6.5); Neutrophils Percent Auto 50.1 % (43.0-75.0); Platelet Count 191 10^3/uL (150-450); Red Blood Count 4.15 10^6/uL (4.20-5.40); Red Cell Distribution Width 11.7 % (11.0-15.0); White Blood Count 5.5 10^3/uL (4.0-11.0)
--- NOTE | 2023-10-23 07:47 | PC.NURSE ---
Patient reports that she was being seen for preop testing for gall bladder removal and was found to have an irregular heartbeat. patient was sent to [facility] cardiology and is currently wearing a ziopatch. patient reports that this morning she felt more weak and noted her heart rate to be 36. patient arrives to ER and ambulates to room with no issues. patient immediately placed on cardiac cath technician. patient noted to be normal sinus rhythm in the 70's but then had a bout of bradycardia in the 40's followed by an approximately minute long episode of bigeminy. ekg obtained at this time and given to physician. patient states that she has been having these episodes for a while but was being selfish so i could get my gall bladder surgery. Patient given verbal reassurance and warm blanket.
[2023-10-23 08:02] LABS: Anion Gap 15.4; BUN Creatinine Ratio 18.9; Calcium 9.1 mg/dL (8.5-10.1); Carbon Dioxide 25.2 mmol/L (21.0-32.0); Chloride 103 mmol/L (98-107); Estimated GFR (African America >60 (>=60); Estimated GFR (Non-African Ame >60 (>=60); Glucose 101 mg/dL (74-106); Potassium 3.6 mmol/L (3.5-5.1); Sodium 140 mmol/L (136-145); Troponin I High Sensitivity 12.9 pg/mL (4.0-51.3)
[2023-10-23 09:11] VITALS: BP 106/68; PULSE 84; TEMP 36.8; O2SAT 99
== END 2023-10-23 09:12 | disposition home or self-care (01) ==
PROVIDERS: Emergency Provider Emergency Medicine; PCP Family Medicine
DX: R00.8 Other abnormalities of heart beat (principal); R00.2 Palpitations; F32.A Depression, unspecified; F41.9 Anxiety disorder, unspecified; K58.9 Irritable bowel syndrome, unspecified; K21.9 Gastro-esophageal reflux disease without esophagitis; Z92.89 Personal history of other medical treatment; Z79.899 Other long term (current) drug therapy; Z98.890 Other specified postprocedural states; Z86.16 Personal history of COVID-19; F12.90 Cannabis use, unspecified, uncomplicated
CPT/HCPCS: 36415; 71045; 80048; 83735; 84484; 85025; 93005; 99285

== ENCOUNTER 2023-10-29 21:18 | Emergency (ER) | payer BC, SELFPAY ==
[2023-10-29 21:24] VITALS: BP 118/77; PULSE 98; O2SAT 99; BMI 19.7
--- NOTE | 2023-10-29 22:53 | ED.GENADUL1 ---
HPI HPI - General Adult General Chief complaint: Nausea/Vomiting/Diarrhea Stated complaint: Shortness of Breath/Dyspnea Time Seen by Provider: 10/29/23 22:49 Source: patient Mode of arrival: walk-in Limitations: no limitations History of Present Illness HPI narrative: patient states she was out tonight and felt light headed. like she may pass out. she was able to sit down and not pass out. No chest pain or dyspnea. States she was seen with similar symptoms last week. She wanted to get checked out. No new medications. Takes lexapro Onset (ago): hour(s) Related Data Home Medications ?Medication ?Instructions ?Recorded ?Confirmed escitalopram oxalate 10 mg tablet 10 mg PO DAILY 01/08/23 10/29/23 (Lexapro) Previous Rx's ?Medication ?Instructions ?Recorded dicyclomine 20 mg tablet 20 mg PO QID PRN abdominal pain 05/08/23 #12 tabs hydrocodone 5 mg-acetaminophen 325 1 tab PO Q6H PRN pain #12 tabs 05/08/23 mg tablet ondansetron 4 mg disintegrating 4 mg PO Q6H PRN nausea and 05/08/23 tablet vomiting #12 tabs pantoprazole 40 mg tablet,delayed 40 mg PO DAILY #7 tabs 05/08/23 release (Protonix) Allergies Allergy/AdvReac Type Severity Reaction Status Date / Time metronidazole [From Flagyl] Allergy Hives Verified 10/29/23 21:30 Opioid HPI Opioid Management Most Recent Opioid Data: Last Pain Scale 8 05/08/23 16:59 Review of Systems ROS Status of ROS 10 or more systems reviewed and unremarkable except as noted in history and below [facility] Medical History (Updated 10/30/23 @ 00:44 by Nazario Juarez MD) Epigastric pain ?R10.13 - Epigastric pain (ICD-10) Nausea ?R11.0 - Nausea (ICD-10) Acute sinusitis due to respiratory syncytial virus (RSV) ?J01.90 - Acute sinusitis, unspecified (ICD-10) ?B97.4 - Respiratory syncytial virus as the cause of diseases classified elsewhere (ICD-10) Shoulder pain ?M25.519 - Pain in unspecified shoulder (ICD-10) Syncope ?R55 - Syncope and collapse (ICD-10) Paresthesia and pain of extremity ?R20.2 - Paresthesia of skin (ICD-10) ?M79.609 - Pain in unspecified limb (ICD-10) Paresthesia ?R20.2 - Paresthesia of skin (ICD-10) Back pain ?M54.9 - Dorsalgia, unspecified (ICD-10) Insomnia ?G47.00 - Insomnia, unspecified (ICD-10) Depression ?F32.A - Depression, unspecified (ICD-10) Anxiety ?F41.9 - Anxiety disorder, unspecified (ICD-10) COVID-19 ?U07.1 - COVID-19 (ICD-10) Pleurisy ?R09.1 - Pleurisy (ICD-10) IBS (irritable bowel syndrome) ?K58.9 - Irritable bowel syndrome without diarrhea (ICD-10) GERD (gastroesophageal reflux disease) ?K21.9 - Gastro-esophageal reflux disease without esophagitis (ICD-10) Palpitations ?R00.2 - Palpitations (ICD-10) Low vitamin D level ?R79.89 - Other specified abnormal findings of blood chemistry (ICD-10) Fatigue ?R53.83 - Other fatigue (ICD-10) Ovarian cyst ?N83.209 - Unspecified ovarian cyst, unspecified side (ICD-10) Pancreatitis ?K85.90 - Acute pancreatitis without necrosis or infection, unspecified (ICD-10) Abdominal pain ?R10.9 - Unspecified abdominal pain (ICD-10) Altered bowel function ?R19.8 - Other specified symptoms and signs involving the digestive system and abdomen (ICD-10) Diarrhea ?R19.7 - Diarrhea, unspecified (ICD-10) Abnormal uterine bleeding ?N93.9 - Abnormal uterine and vaginal bleeding, unspecified (ICD-10) Pelvic pain ?R10.2 - Pelvic and perineal pain (ICD-10) Fallopian tube disorder ?N83.9 - Noninflammatory disorder of ovary, fallopian tube and broad ligament, unspecified (ICD-10) Muscle weakness ?M62.81 - Muscle weakness (generalized) (ICD-10) Dehydration ?E86.0 - Dehydration (ICD-10) Clostridium difficile infection ?A49.8 - Other bacterial infections of unspecified site (ICD-10) 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 - Personal history of other medical treatment (ICD-10) Surgical History (Updated 06/19/23 @ 10:26 by Lynette Darden NP) History of removal of skin mole ?Z98.890 - Other specified postprocedural states (ICD-10) ?Z87.2 - Personal history of diseases of the skin and subcutaneous tissue (ICD-10) History of wisdom tooth extraction ?K08.409 - Partial loss of teeth, unspecified cause, unspecified class (ICD-10) History of esophagogastroduodenoscopy (EGD) ?Z98.890 - Other specified postprocedural states (ICD-10) History of colonoscopy ?Z98.890 - Other specified postprocedural states (ICD-10) Family History (Updated 01/08/23 @ 10:26 by Lynette Darden NP) Other Family history of hypertension Family history of prostate cancer Family history of stroke Social History Within the past year, how often did you have a drink containing alcohol: never Score interpretation: A score less than 3 is consistent with normal alcohol consumption. 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 Highest level of school completed/degree received: Associate degree: occupational, technical, vocational program Exam Constitutional Vital Signs, click to edit/add: Last Vital Signs Pulse 98 H 10/29/23 21:24 Resp 20 10/29/23 21:24 BP 118/77 10/29/23 21:24 Pulse Ox 99 10/29/23 21:24 O2 Del Method Room Air 10/29/23 21:24 Common normals: no apparent distress, average body habitus, oriented x3, no limitations, healthy appearing, alert and well nourished Eye Common normals: EOMs intact bilaterally and conjunctivae normal Respiratory Common normals: normal respiratory effort, no retractions, no use of accessory muscles and clear to auscultation bilaterally Cardio Common normals: regular rate, regular rhythm, S1 normal heart sound and S2 normal heart sound GI Common normals: Normal to inspection, nondistended, normoactive bowel sounds present, soft to palpation and non-tender Extremity Common normals: normal to inspection and full ROM Neuro Common normals: oriented x3, CN's II-XII intact bilaterally, moves all extremities and no focal motor deficits Psych Appearance: grossly normal Course Vital Signs Vital signs: Vital Signs Pulse Rate 98 H 10/29/23 21:24 Respiratory Rate 20 10/29/23 21:24 Blood Pressure 118/77 10/29/23 21:24 Pulse Oximetry 99 10/29/23 21:24 Oxygen Delivery Method Room Air 10/29/23 21:24 Pulse Rate 98 H 10/29/23 21:24 Respiratory Rate 20 10/29/23 21:24 Blood Pressure 118/77 10/29/23 21:24 Pulse Oximetry 99 10/29/23 21:24 Oxygen Delivery Method Room Air 10/29/23 21:24 Medical Decision Making MDM Narrative Medical decision making narrative: patient presents complaining of light headed sensation. Seen previously for similar complaint. Also seen by cardiology and is wearing a loop recorder and is scheduled for Echo. Arrives here asymptomatic EKG with unifocal occ PCVs. labs neg. 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 Lab Data Labs: Lab Results 10/29/23 Range/Units 23:10 WBC 10.9 (4.0-11.0) 10^3/uL RBC 3.87 L (4.20-5.40) 10^6/uL Hgb 12.3 (12.0-16.0) g/dL Hct 36.3 (36.0-48.0) % MCV 93.8 (81.0-99.0) fL MCH 31.8 (26.7-34.0) pg MCHC 33.9 (29.9-35.2) g/dL RDW 11.7 (11.0-15.0) % Plt Count 197 (150-450) 10^3/uL MPV 11.2 (9.5-13.5) fL Neut % (Auto) 68.5 (43.0-75.0) % Lymph % (Auto) 22.6 (20.5-60.0) % [place] % (Auto) 6.4 (1.7-12.0) % Eos % (Auto) 1.6 (0.9-7.0) % Baso % (Auto) 0.6 (0.2-2.0) % Neut # (Auto) 7.5 H (1.4-6.5) 10^3/uL Lymph # (Auto) 2.5 (1.2-3.8) 10^3/uL [place] # (Auto) 0.7 (0.3-0.8) 10^3/uL Eos # (Auto) 0.2 (0.0-0.7) 10^3/uL Baso # (Auto) 0.1 (0.0-0.1) 10^3/uL Abs Immat Gran (auto) 0.03 (0.00-0.03) 10^3/uL Imm/Tot Granulo (auto) 0.3 (0.0-0.5) % D-Dimer <0.19 (<=0.59) mg/L FEU Sodium 138 (136-145) mmol/L Potassium 3.8 (3.5-5.1) mmol/L Chloride 102 (98-107) mmol/L Carbon Dioxide 25.3 (21.0-32.0) mmol/L Anion Gap 14.5 BUN 17.0 (7.0-18.0) mg/dL Creatinine 0.63 (0.55-1.02) mg/dL Est GFR ( Amer) >60 (>=60) Est GFR (Non-Af Amer) >60 (>=60) BUN/Creatinine Ratio 27.0 Glucose 97 (74-106) mg/dL Calcium 8.7 (8.5-10.1) mg/dL Troponin I High Sens 12.9 (4.0-51.3) pg/mL Discharge Plan Discharge Stand Alone Forms: Portal Instructions Chief Complaint: Nausea/Vomiting/Diarrhea Clinical Impression: Palpitations, Premature ventricular contractions (PVCs) (VPCs) Patient Disposition: Home, Self-Care Prescriptions / Home Meds: No Action escitalopram oxalate [Lexapro] 10 mg tablet 10 mg PO DAILY hydrocodone-acetaminophen 5-325 mg tablet 1 tab PO Q6H PRN (Reason: pain) Qty: 12 0RF dicyclomine 20 mg tablet 20 mg PO QID PRN (Reason: abdominal pain) Qty: 12 0RF pantoprazole [Protonix] 40 mg tablet,delayed release (DR/EC) 40 mg PO DAILY Qty: 7 0RF ondansetron 4 mg tablet,disintegrating 4 mg PO Q6H PRN (Reason: nausea and vomiting) Qty: 12 0RF Print Language: Occitan Instructions: Premature Ventricular Contractions (ED) Additional Instructions: contact your refrigeration system installer tomorrow for appointment/directions Referrals: ESPERANZA NOGUERA [Primary Care Provider] - 1 week
--- NOTE | 2023-10-29 22:56 | ECG_ITS ---
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
--- NOTE | 2023-10-29 22:56 | XR_ITS ---
The [address] [address] Patient Name: CHIOMA ALONZO MRN: [id number] date: 2000 Sex: F Assigned Patient Location: ER Current Patient Location: ER Accession/Order Number: [id number] Exam Date: 10/29/2023 23:20 Report Date: 10/30/2023 00:23 At the request of: HELGA SY Procedure: XR chest 1V EXAM: XR chest 1V HISTORY: near syncope COMPARISON: Chest radiograph dated 10/23/2023. TECHNIQUE: One view of the chest was obtained. FINDINGS: The cardiac silhouette is stable in size. The lungs are clear. There is no significant pneumothorax or pleural effusion. No acute osseous abnormality is seen. XR/XR chest 1V IMPRESSION: 1. No acute cardiopulmonary abnormality. Electronically authenticated by: Nolan LIM Date: 10/30/2023 00:23
[2023-10-29 23:42] LABS: Basophils Absolute Auto 0.1 10^3/uL (0.0-0.1); Basophils Percent Auto 0.6 % (0.2-2.0); Eosinophils Absolute Auto 0.2 10^3/uL (0.0-0.7); Eosinophils Percent Auto 1.6 % (0.9-7.0); Hematocrit 36.3 % (36.0-48.0); Hemoglobin 12.3 g/dL (12.0-16.0); Immature Granulocytes Abs Auto 0.03 10^3/uL (0.00-0.03); Immature Granulocytes Pct Auto 0.3 % (0.0-0.5); Lymphocytes Absolute Auto 2.5 10^3/uL (1.2-3.8); Lymphocytes Percent Auto 22.6 % (20.5-60.0); Mean Corpuscular HGB Conc 33.9 g/dL (29.9-35.2); Mean Corpuscular Hemoglobin 31.8 pg (26.7-34.0); Mean Corpuscular Volume 93.8 fL (81.0-99.0); Mean Platelet Volume 11.2 fL (9.5-13.5); Monocytes Absolute Auto 0.7 10^3/uL (0.3-0.8); Monocytes Percent Auto 6.4 % (1.7-12.0); Neutrophils Absolute Auto 7.5 10^3/uL (1.4-6.5); Neutrophils Percent Auto 68.5 % (43.0-75.0); Platelet Count 197 10^3/uL (150-450); Red Blood Count 3.87 10^6/uL (4.20-5.40); Red Cell Distribution Width 11.7 % (11.0-15.0); White Blood Count 10.9 10^3/uL (4.0-11.0)
[2023-10-30] LABS: D Dimer <0.19 mg/L FEU (<=0.59)
[2023-10-30 00:06] LABS: Anion Gap 14.5; Calcium 8.7 mg/dL (8.5-10.1); Carbon Dioxide 25.3 mmol/L (21.0-32.0); Chloride 102 mmol/L (98-107); Estimated GFR (African America >60 (>=60); Estimated GFR (Non-African Ame >60 (>=60); Glucose 97 mg/dL (74-106); Potassium 3.8 mmol/L (3.5-5.1); Sodium 138 mmol/L (136-145); Troponin I High Sensitivity 12.9 pg/mL (4.0-51.3)
== END 2023-10-30 00:57 | disposition home or self-care (01) ==
PROVIDERS: Emergency Provider Internal Medicine; PCP Family Medicine
DX: I49.3 Ventricular premature depolarization (principal); R00.2 Palpitations; F32.A Depression, unspecified; F41.9 Anxiety disorder, unspecified; Z86.16 Personal history of COVID-19; K21.9 Gastro-esophageal reflux disease without esophagitis; Z79.899 Other long term (current) drug therapy; Z92.89 Personal history of other medical treatment; Z98.890 Other specified postprocedural states; F12.90 Cannabis use, unspecified, uncomplicated
CPT/HCPCS: 36415; 71045; 80048; 84484; 85025; 85378; 93005; 99285

== ENCOUNTER 2023-11-02 13:55 | Emergency (ER) | payer BC, SELFPAY ==
[2023-11-02] VITALS (11 sets, daily range): BP systolic 116–118; BP diastolic 60–67; PULSE 76–101; TEMP 37.2; O2SAT 98–100; BMI 19.7
--- NOTE | 2023-11-02 14:12 | ECG_ITS ---
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
--- NOTE | 2023-11-02 14:13 | ED_ITS ---
HPI - Chest Pain General Chief Complaint: Chest Pain Stated Complaint: CHEST PAIN Time Seen by Provider: 11/02/23 13:54 Source: patient Mode of arrival: walk-in History of Present Illness HPI narrative: Patient is a 22-year-old female who presents to the emergency department for left-sided chest pain that has been constant for the last 7 to 8 hours. She has had issues with shortness of breath, palpitations frequently over the last 2 we eks and has been seen in this emergency department twice previously in the last 10 days for this. She is seeing a information technology audit manager at the [facility], she states that she was just being monitored with a Holter monitor and sent this back to the [facility] 2 days ago. She has a known history of bigeminy and palpitations, PVCs. She denies any new palpitations, shortness of breath that has been unusual for her recently. She has had no new fevers, cough, congestion. No injury to the chest wall. No swelling in the legs. She is not concerned for . No medications taken prior to arrival. Related Data Home Medications ?Medication ?Instructions ?Recorded ?Confirmed escitalopram oxalate 10 mg tablet 10 mg PO DAILY 01/08/23 10/29/23 (Lexapro) Previous Rx's ?Medication ?Instructions ?Recorded dicyclomine 20 mg tablet 20 mg PO QID PRN abdominal pain 05/08/23 #12 tabs hydrocodone 5 mg-acetaminophen 325 1 tab PO Q6H PRN pain #12 tabs 05/08/23 mg tablet ondansetron 4 mg disintegrating 4 mg PO Q6H PRN nausea and 05/08/23 tablet vomiting #12 tabs pantoprazole 40 mg tablet,delayed 40 mg PO DAILY #7 tabs 05/08/23 release (Protonix) ketorolac 10 mg tablet 10 mg PO TID PRN pain #10 tabs 11/02/23 Allergies Allergy/AdvReac Type Severity Reaction Status Date / Time metronidazole [From Flagyl] Allergy Hives Verified 10/29/23 21:30 Review of Systems ROS0 Constitutional Denies: fever or chills Ears, nose, mouth, and throat Denies: throat pain Cardiovascular Reports: chest pain and palpitations; Denies: edema Respiratory Reports: shortness of breath; Denies: cough Gastrointestinal Denies: nausea or vomiting Musculoskeletal Denies: back pain Integumentary/Breast Denies: rash Neurological Denies: headache Hematologic/Lymphatic Denies: easy bruising or easy bleeding [facility] Medical History (Updated 11/02/23 @ 15:09 by SHELBY Junior) Epigastric pain ?R10.13 - Epigastric pain (ICD-10) Nausea ?R11.0 - Nausea (ICD-10) Acute sinusitis due to respiratory syncytial virus (RSV) ?J01.90 - Acute sinusitis, unspecified (ICD-10) ?B97.4 - Respiratory syncytial virus as the cause of diseases classified elsewhere (ICD-10) Shoulder pain ?M25.519 - Pain in unspecified shoulder (ICD-10) Syncope ?R55 - Syncope and collapse (ICD-10) Paresthesia and pain of extremity ?R20.2 - Paresthesia of skin (ICD-10) ?M79.609 - Pain in unspecified limb (ICD-10) Paresthesia ?R20.2 - Paresthesia of skin (ICD-10) Back pain ?M54.9 - Dorsalgia, unspecified (ICD-10) Insomnia ?G47.00 - Insomnia, unspecified (ICD-10) Depression ?F32.A - Depression, unspecified (ICD-10) Anxiety ?F41.9 - Anxiety disorder, unspecified (ICD-10) COVID-19 ?U07.1 - COVID-19 (ICD-10) Pleurisy ?R09.1 - Pleurisy (ICD-10) IBS (irritable bowel syndrome) ?K58.9 - Irritable bowel syndrome without diarrhea (ICD-10) GERD (gastroesophageal reflux disease) ?K21.9 - Gastro-esophageal reflux disease without esophagitis (ICD-10) Palpitations ?R00.2 - Palpitations (ICD-10) Low vitamin D level ?R79.89 - Other specified abnormal findings of blood chemistry (ICD-10) Fatigue ?R53.83 - Other fatigue (ICD-10) Ovarian cyst ?N83.209 - Unspecified ovarian cyst, unspecified side (ICD-10) Pancreatitis ?K85.90 - Acute pancreatitis without necrosis or infection, unspecified (ICD- 10) Abdominal pain ?R10.9 - Unspecified abdominal pain (ICD-10) Altered bowel function ?R19.8 - Other specified symptoms and signs involving the digestive system and abdomen (ICD-10) Diarrhea ?R19.7 - Diarrhea, unspecified (ICD-10) Abnormal uterine bleeding ?N93.9 - Abnormal uterine and vaginal bleeding, unspecified (ICD-10) Pelvic pain ?R10.2 - Pelvic and perineal pain (ICD-10) Fallopian tube disorder ?N83.9 - Noninflammatory disorder of ovary, fallopian tube and broad ligament, unspecified (ICD-10) Muscle weakness ?M62.81 - Muscle weakness (generalized) (ICD-10) Dehydration ?E86.0 - Dehydration (ICD-10) Clostridium difficile infection ?A49.8 - Other bacterial infections of unspecified site (ICD-10) 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 - Personal history of other medical treatment (ICD-10) Surgical History (Updated 01/08/23 @ 10:26 by Lynette Darden NP) History of removal of skin mole ?Z98.890 - Other specified postprocedural states (ICD-10) ?Z87.2 - Personal history of diseases of the skin and subcutaneous tissue (ICD-10) History of wisdom tooth extraction ?K08.409 - Partial loss of teeth, unspecified cause, unspecified class (ICD- 10) History of esophagogastroduodenoscopy (EGD) ?Z98.890 - Other specified postprocedural states (ICD-10) History of colonoscopy ?Z98.890 - Other specified postprocedural states (ICD-10) Family History (Updated 01/08/23 @ 10:26 by Lynette Darden NP) Other Family history of hypertension Family history of prostate cancer Family history of stroke Social History Within the past year, how often did you have a drink containing alcohol: never Score interpretation: A score less than 3 is consistent with normal alcohol consumption. 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 Highest level of school completed/degree received: Associate degree: occupational, technical, vocational program Exam Narrative Exam Narrative: Gen.: Awake, alert, in no distress Head: Normocephalic, atraumatic ENT: Moist mucous membranes Respiratory: No respiratory distress, lungs clear bilaterally Cardio: Regular rate and rhythm, occasional PVCs noted Extremities: Moves extremities equally, no pedal edema Psych: Normal mood and affect Neuro: No focal neuro deficit Skin: Warm, dry, intact Constitutional Vital Signs, click to edit/add: Last Vital Signs Temp 98.9 F 11/02/23 13:58 Pulse 87 11/02/23 13:58 Resp 16 11/02/23 13:58 BP 116/60 11/02/23 13:58 Pulse Ox 100 11/02/23 13:58 O2 Del Method Room Air 11/02/23 13:58 Course Vital Signs Vital signs: Vital Signs Temperature 98.9 F 11/02/23 13:58 Pulse Rate 87 11/02/23 13:58 Respiratory Rate 16 11/02/23 13:58 Blood Pressure 116/60 11/02/23 13:58 Pulse Oximetry 100 11/02/23 13:58 Oxygen Delivery Method Room Air 11/02/23 13:58 Temperature 98.9 F 11/02/23 13:58 Pulse Rate 87 11/02/23 13:58 Respiratory Rate 16 11/02/23 13:58 Blood Pressure 116/60 11/02/23 13:58 Pulse Oximetry 100 11/02/23 13:58 Oxygen Delivery Method Room Air 11/02/23 13:58 MDM - Chest Pain MDM Narrative Medical decision making narrative: EKG shows bigeminy, no change from previous, no acute ST elevation. Patient is currently being treated for the PVCs and evaluated by [facility] cardiology. She states she has an upcoming echocardiogram. She is breathing easily with stable vital signs in the emergency department. Lab studies are repeated, she has had 2 chest x-rays in the last 10 days, she had a negative D- dimer 4 days ago. Labs are unremarkable today and the patient was given education and reassurance on reevaluation by attending physician. She will be discharged home with a prescription of Toradol as needed to follow-up with cardiology and return to the ER if symptoms change or worsen Medical Records Data Attestation: I reviewed the patient's medical records. Lab Data Attestation: I reviewed the patient's lab results. Labs: Lab Results 11/02/23 Range/Units 14:27 WBC 6.5 (4.0-11.0) 10^3/uL RBC 3.76 L (4.20-5.40) 10^6/uL Hgb 11.8 L (12.0-16.0) g/dL Hct 35.4 L (36.0-48.0) % MCV 94.1 (81.0-99.0) fL MCH 31.4 (26.7-34.0) pg MCHC 33.3 (29.9-35.2) g/dL RDW 11.7 (11.0-15.0) % Plt Count 183 (150-450) 10^3/uL MPV 10.7 (9.5-13.5) fL Neut % (Auto) 54.5 (43.0-75.0) % Lymph % (Auto) 35.4 (20.5-60.0) % [place] % (Auto) 7.0 (1.7-12.0) % Eos % (Auto) 2.0 (0.9-7.0) % Baso % (Auto) 0.8 (0.2-2.0) % Neut # (Auto) 3.5 (1.4-6.5) 10^3/uL Lymph # (Auto) 2.3 (1.2-3.8) 10^3/uL [place] # (Auto) 0.5 (0.3-0.8) 10^3/uL Eos # (Auto) 0.1 (0.0-0.7) 10^3/uL Baso # (Auto) 0.1 (0.0-0.1) 10^3/uL Abs Immat Gran (auto) 0.02 (0.00-0.03) 10^3/uL Imm/Tot Granulo (auto) 0.3 (0.0-0.5) % Sodium 140 (136-145) mmol/L Potassium 3.9 (3.5-5.1) mmol/L Chloride 104 (98-107) mmol/L Carbon Dioxide 26.5 (21.0-32.0) mmol/L Anion Gap 13.4 BUN 12.0 (7.0-18.0) mg/dL Creatinine 0.69 (0.55-1.02) mg/dL Est GFR ( Amer) >60 (>=60) Est GFR (Non-Af Amer) >60 (>=60) BUN/Creatinine Ratio 17.4 Glucose 96 (74-106) mg/dL Calcium 9.1 (8.5-10.1) mg/dL Magnesium 1.9 (1.8-2.4) mg/dL Total Bilirubin 0.3 (0.2-1.0) mg/dL AST 11 L (15-37) U/L ALT 13 L (14-59) U/L Alkaline Phosphatase 48 (46-116) U/L Troponin I High Sens 9.5 (4.0-51.3) pg/mL Total Protein 6.7 (6.4-8.2) g/dL Albumin 3.9 (3.4-5.0) g/dL Globulin 2.8 g/dL Albumin/Globulin Ratio 1.4 Lipase 30.0 (16.0-77.0) U/L TSH 1.641 (0.358-3.740) uIU/mL Serum HCG, Qual Negative (NEGATIVE) ECG Data Attestation: I personally reviewed and interpreted this ECG as follows: (Normal sinus rhythm at a rate of 80 with frequent PVCs, no acute ST elevation, no EKG change from 10/23/2023) ECG interpretation date: 11/02/23 Heart Score History: Slightly/Non-Suspicious ECG: Normal Age: <45 years Risk Factors: No Risk Factors Troponin: <Normal Limit Total Heart Score Recommendations & Risks:: 0 Discharge Plan Discharge Stand Alone Forms: Portal Instructions Chief Complaint: Chest Pain Clinical Impression: Palpitations, Bigeminy, Chest pain Patient Disposition: Home, Self-Care Time of Disposition Decision: 15:09 Condition: Good Prescriptions / Home Meds: New ketorolac 10 mg tablet 10 mg PO TID PRN (Reason: pain) Qty: 10 0RF No Action escitalopram oxalate [Lexapro] 10 mg tablet 10 mg PO DAILY hydrocodone-acetaminophen 5-325 mg tablet 1 tab PO Q6H PRN (Reason: pain) Qty: 12 0RF dicyclomine 20 mg tablet 20 mg PO QID PRN (Reason: abdominal pain) Qty: 12 0RF pantoprazole [Protonix] 40 mg tablet,delayed release (DR/EC) 40 mg PO DAILY Qty: 7 0RF ondansetron 4 mg tablet,disintegrating 4 mg PO Q6H PRN (Reason: nausea and vomiting) Qty: 12 0RF Print Language: Croatian Instructions: Chest Pain (ED), Premature Ventricular Contractions (ED) Additional Instructions: Follow up with your [facility] for rehabilitation information technology audit manager Referrals: ESPERANZA NOGUERA [Primary Care Provider] - 1 week
[2023-11-02 14:34] LABS: Basophils Absolute Auto 0.1 10^3/uL (0.0-0.1); Basophils Percent Auto 0.8 % (0.2-2.0); Eosinophils Absolute Auto 0.1 10^3/uL (0.0-0.7); Hematocrit 35.4 % (36.0-48.0); Hemoglobin 11.8 g/dL (12.0-16.0); Immature Granulocytes Abs Auto 0.02 10^3/uL (0.00-0.03); Immature Granulocytes Pct Auto 0.3 % (0.0-0.5); Lymphocytes Absolute Auto 2.3 10^3/uL (1.2-3.8); Lymphocytes Percent Auto 35.4 % (20.5-60.0); Mean Corpuscular HGB Conc 33.3 g/dL (29.9-35.2); Mean Corpuscular Hemoglobin 31.4 pg (26.7-34.0); Mean Corpuscular Volume 94.1 fL (81.0-99.0); Mean Platelet Volume 10.7 fL (9.5-13.5); Monocytes Absolute Auto 0.5 10^3/uL (0.3-0.8); Neutrophils Absolute Auto 3.5 10^3/uL (1.4-6.5); Neutrophils Percent Auto 54.5 % (43.0-75.0); Platelet Count 183 10^3/uL (150-450); Red Blood Count 3.76 10^6/uL (4.20-5.40); Red Cell Distribution Width 11.7 % (11.0-15.0); White Blood Count 6.5 10^3/uL (4.0-11.0)
[2023-11-02 14:48] LABS: HCG Qualitative NEGATIVE (NEGATIVE)
[2023-11-02 14:49] LABS: Alanine Aminotransferase 13 U/L (14-59); Albumin Globulin Ratio 1.4; Albumin Level 3.9 g/dL (3.4-5.0); Alkaline Phosphatase 48 U/L (46-116); Anion Gap 13.4; Aspartate Amino Transferase 11 U/L (15-37); BUN Creatinine Ratio 17.4; Bilirubin Total 0.3 mg/dL (0.2-1.0); Calcium 9.1 mg/dL (8.5-10.1); Carbon Dioxide 26.5 mmol/L (21.0-32.0); Chloride 104 mmol/L (98-107); Estimated GFR (African America >60 (>=60); Estimated GFR (Non-African Ame >60 (>=60); Globulin 2.8 g/dL; Glucose 96 mg/dL (74-106); Potassium 3.9 mmol/L (3.5-5.1); Sodium 140 mmol/L (136-145); Total Protein 6.7 g/dL (6.4-8.2)
[2023-11-02 14:58] LABS: Magnesium 1.9 mg/dL (1.8-2.4); Thyroid Stimulating Hormone 1.641 uIU/mL (0.358-3.740); Troponin I High Sensitivity 9.5 pg/mL (4.0-51.3)
== END 2023-11-02 15:28 | disposition home or self-care (01) ==
PROVIDERS: Physician Assistant; Emergency Provider Emergency Medicine; PCP Family Medicine
DX: R07.9 Chest pain, unspecified (principal); R00.2 Palpitations; R00.8 Other abnormalities of heart beat; Z79.899 Other long term (current) drug therapy; F12.90 Cannabis use, unspecified, uncomplicated; Z98.890 Other specified postprocedural states; Z92.89 Personal history of other medical treatment; K21.9 Gastro-esophageal reflux disease without esophagitis; K58.9 Irritable bowel syndrome, unspecified; F41.9 Anxiety disorder, unspecified; F32.A Depression, unspecified; Z86.16 Personal history of COVID-19
CPT/HCPCS: 36415; 80048; 80053; 83690; 83735; 84443; 84484; 84703; 85025; 93005; 99284

== ENCOUNTER 2023-12-27 20:50 | Emergency (ER) | payer BC, SELFPAY ==
[2023-12-27 20:56] VITALS: BP 116/63; PULSE 77; TEMP 36.7; O2SAT 98; BMI 19.7
--- NOTE | 2023-12-27 21:07 | ED_ITS ---
HPI HPI - General Adult General Chief complaint: Abdominal Pain Stated complaint: abdominal pain Time Seen by Provider: 12/27/23 20:52 Source: patient Mode of arrival: walk-in Limitations: no limitations History of Present Illness HPI narrative: Patient is a 23-year-old female who who presents to the emergency department for right upper quadrant going through to her back that began today. She states she has a history of pancreatitis, she believes she last had pancreatitis in 2016. She does not know if this feels Similar to previous exacerbations of pancreatitis. She is not concerned for . She reports diarrhea today but no fevers or vomiting. She denies urinary symptoms. She states she is due to follow-up with a specialist in 1 month for testing to determine if she has MALS. Related Data Home Medications ?Medication ?Instructions ?Recorded ?Confirmed escitalopram oxalate 10 mg tablet 10 mg PO DAILY 01/08/23 12/27/23 (Lexapro) hyoscyamine sulfate 0.375 mg mg PO 12/27/23 tablet,extended release,12 hr Previous Rx's ?Medication ?Instructions ?Recorded dicyclomine 20 mg tablet 20 mg PO QID PRN abdominal pain 12/27/23 #12 tabs ondansetron 4 mg disintegrating 4 mg PO Q6H PRN nausea and 12/27/23 tablet vomiting #12 tabs pantoprazole 40 mg tablet,delayed 40 mg PO DAILY #7 tabs 12/27/23 release (Protonix) Allergies Allergy/AdvReac Type Severity Reaction Status Date / Time metronidazole [From Flagyl] Allergy Hives Verified 12/27/23 20:54 Opioid HPI Opioid Management Most Recent Opioid Data: Last Pain Scale 3 12/27/23 22:09 Review of Systems ROS Constitutional Denies: fever or chills Ears, nose, mouth, and throat Denies: throat pain or nasal congestion Cardiovascular Denies: chest pain Respiratory Denies: shortness of breath Gastrointestinal Denies: nausea or vomiting Musculoskeletal Denies: back pain Integumentary/Breast Denies: rash Neurological Denies: headache Hematologic/Lymphatic Denies: easy bruising or easy bleeding [facility] Medical History (Updated 12/27/23 @ 21:53 by SHELYB Junior) Epigastric pain ?R10.13 - Epigastric pain (ICD-10) Nausea ?R11.0 - Nausea (ICD-10) Acute sinusitis due to respiratory syncytial virus (RSV) ?J01.90 - Acute sinusitis, unspecified (ICD-10) ?B97.4 - Respiratory syncytial virus as the cause of diseases classified elsewhere (ICD-10) Shoulder pain ?M25.519 - Pain in unspecified shoulder (ICD-10) Syncope ?R55 - Syncope and collapse (ICD-10) Paresthesia and pain of extremity ?R20.2 - Paresthesia of skin (ICD-10) ?M79.609 - Pain in unspecified limb (ICD-10) Paresthesia ?R20.2 - Paresthesia of skin (ICD-10) Back pain ?M54.9 - Dorsalgia, unspecified (ICD-10) Insomnia ?G47.00 - Insomnia, unspecified (ICD-10) Depression ?F32.A - Depression, unspecified (ICD-10) Anxiety ?F41.9 - Anxiety disorder, unspecified (ICD-10) COVID-19 ?U07.1 - COVID-19 (ICD-10) Pleurisy ?R09.1 - Pleurisy (ICD-10) IBS (irritable bowel syndrome) ?K58.9 - Irritable bowel syndrome without diarrhea (ICD-10) GERD (gastroesophageal reflux disease) ?K21.9 - Gastro-esophageal reflux disease without esophagitis (ICD-10) Palpitations ?R00.2 - Palpitations (ICD-10) Low vitamin D level ?R79.89 - Other specified abnormal findings of blood chemistry (ICD-10) Fatigue ?R53.83 - Other fatigue (ICD-10) Ovarian cyst ?N83.209 - Unspecified ovarian cyst, unspecified side (ICD-10) Pancreatitis ?K85.90 - Acute pancreatitis without necrosis or infection, unspecified (ICD- 10) Abdominal pain ?R10.9 - Unspecified abdominal pain (ICD-10) Altered bowel function ?R19.8 - Other specified symptoms and signs involving the digestive system and abdomen (ICD-10) Diarrhea ?R19.7 - Diarrhea, unspecified (ICD-10) Abnormal uterine bleeding ?N93.9 - Abnormal uterine and vaginal bleeding, unspecified (ICD-10) Pelvic pain ?R10.2 - Pelvic and perineal pain (ICD-10) Fallopian tube disorder ?N83.9 - Noninflammatory disorder of ovary, fallopian tube and broad ligament, unspecified (ICD-10) Muscle weakness ?M62.81 - Muscle weakness (generalized) (ICD-10) Dehydration ?E86.0 - Dehydration (ICD-10) Clostridium difficile infection ?A49.8 - Other bacterial infections of unspecified site (ICD-10) 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 - Personal history of other medical treatment (ICD-10) Surgical History (Updated 01/08/23 @ 10:26 by Lynette Darden NP) History of removal of skin mole ?Z98.890 - Other specified postprocedural states (ICD-10) ?Z87.2 - Personal history of diseases of the skin and subcutaneous tissue (ICD-10) History of wisdom tooth extraction ?K08.409 - Partial loss of teeth, unspecified cause, unspecified class (ICD- 10) History of esophagogastroduodenoscopy (EGD) ?Z98.890 - Other specified postprocedural states (ICD-10) History of colonoscopy ?Z98.890 - Other specified postprocedural states (ICD-10) Family History (Updated 01/08/23 @ 10:26 by Lynette Darden NP) Other Family history of hypertension Family history of prostate cancer Family history of stroke Social History Within the past year, how often did you have a drink containing alcohol: never Score interpretation: A score less than 3 is consistent with normal alcohol consumption. 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[employer] Highest level of school completed/degree received: Associate degree: occupational, technical, vocational program Exam Narrative Exam Narrative: Gen.: Awake, alert, in no distress Head: Normocephalic, atraumatic ENT: Moist mucous membranes Respiratory: No respiratory distress, lungs clear bilaterally Cardio: Regular rate and rhythm Gastrointestinal: Abdomen is soft, nondistended and Tender to palpation in the right upper quadrant with no guarding or rebound Extremities: Moves extremities equally Psych: Normal mood and affect Neuro: No focal neuro deficit Skin: Warm, dry, intact Constitutional Vital Signs, click to edit/add: Last Vital Signs Temp 98.0 F 12/27/23 20:56 Pulse 77 12/27/23 20:56 Resp 16 12/27/23 20:56 BP 116/63 12/27/23 20:56 Pulse Ox 98 12/27/23 20:56 O2 Del Method Room Air 12/27/23 20:56 Course Vital Signs Vital signs: Vital Signs Temperature 98.0 F 12/27/23 20:56 Pulse Rate 77 12/27/23 20:56 Respiratory Rate 16 12/27/23 20:56 Blood Pressure 116/63 12/27/23 20:56 Pulse Oximetry 98 12/27/23 20:56 Oxygen Delivery Method Room Air 12/27/23 20:56 Temperature 98.0 F 12/27/23 20:56 Pulse Rate 77 12/27/23 20:56 Respiratory Rate 16 12/27/23 20:56 Blood Pressure 116/63 12/27/23 20:56 Pulse Oximetry 98 12/27/23 20:56 Oxygen Delivery Method Room Air 12/27/23 20:56 Medical Decision Making MDM Narrative Medical decision making narrative: [place] studies reviewed and noted within normal limits, no leukocytosis or abnormal LFTs. Lipase and amylase are normal. Patient was medicated for pain and is feeling better on reevaluation. Medical decision making at the bedside with the patient and her family member regarding imaging. Patient has had [address] scans within the last 15 months which did not show any acute process related to the right upper quadrant. She has also had 2 right upper quadrant ultrasound and a HIDA scan that were unremarkable. Patient would like to defer CT scanning at this time, ultrasound is unavailable this evening and the patient was offered an outpatient right upper quadrant ultrasound. She will follow-up as an outpatient for this test. Results to her PCP. She was given a short course of Bentyl, Zofran and Protonix for home. She was instructed to return to the emergency department if her symptoms change or worsen. She verbalized understanding. Work note provided. Medical Records Medical records reviewed: Yes I reviewed the patient's medical records Lab Data Lab results reviewed: Yes I reviewed the patient's lab results Labs: Lab Results 12/27/23 Range/Units 21:05 WBC 9.3 (4.0-11.0) 10^3/uL RBC 4.01 L (4.20-5.40) 10^6/uL Hgb 12.8 (12.0-16.0) g/dL Hct 37.2 (36.0-48.0) % MCV 92.8 (81.0-99.0) fL MCH 31.9 (26.7-34.0) pg MCHC 34.4 (29.9-35.2) g/dL RDW 11.4 (11.0-15.0) % Plt Count 191 (150-450) 10^3/uL MPV 10.7 (9.5-13.5) fL Neut % (Auto) 44.2 (43.0-75.0) % Lymph % (Auto) 44.1 (20.5-60.0) % [place] % (Auto) 8.1 (1.7-12.0) % Eos % (Auto) 2.9 (0.9-7.0) % Baso % (Auto) 0.5 (0.2-2.0) % Neut # (Auto) 4.1 (1.4-6.5) 10^3/uL Lymph # (Auto) 4.1 H (1.2-3.8) 10^3/uL [place] # (Auto) 0.8 (0.3-0.8) 10^3/uL Eos # (Auto) 0.3 (0.0-0.7) 10^3/uL Baso # (Auto) 0.1 (0.0-0.1) 10^3/uL Abs Immat Gran (auto) 0.02 (0.00-0.03) 10^3/uL Imm/Tot Granulo (auto) 0.2 (0.0-0.5) % Sodium 138 (136-145) mmol/L Potassium 3.5 (3.5-5.1) mmol/L Chloride 102 (98-107) mmol/L Carbon Dioxide 28.1 (21.0-32.0) mmol/L Anion Gap 11.4 BUN 12.0 (7.0-18.0) mg/dL Creatinine 0.81 (0.55-1.02) mg/dL Est GFR ( Amer) >60 (>=60) Est GFR (Non-Af Amer) >60 (>=60) BUN/Creatinine Ratio 14.8 Glucose 106 (74-106) mg/dL Lactate 1.1 (0.4-2.0) mmol/L Calcium 9.5 (8.5-10.1) mg/dL Total Bilirubin 0.5 (0.2-1.0) mg/dL Direct Bilirubin 0.1 (0.0-0.2) mg/dL AST 13 L (15-37) U/L ALT 14 (14-59) U/L Alkaline Phosphatase 58 (46-116) U/L Total Protein 7.4 (6.4-8.2) g/dL Albumin 4.1 (3.4-5.0) g/dL Globulin 3.3 g/dL Albumin/Globulin Ratio 1.2 Amylase 45 (25-115) U/L Lipase 36.0 (16.0-77.0) U/L Serum HCG, Qual Negative (NEGATIVE) Discharge Plan Discharge Stand Alone Forms: Portal Instructions Chief Complaint: Abdominal Pain Clinical Impression: Abdominal pain Patient Disposition: Home, Self-Care Time of Disposition Decision: 21:53 Condition: Good Prescriptions / Home Meds: New dicyclomine 20 mg tablet 20 mg PO QID PRN (Reason: abdominal pain) Qty: 12 0RF pantoprazole [Protonix] 40 mg tablet,delayed release (DR/EC) 40 mg PO DAILY Qty: 7 0RF ondansetron 4 mg tablet,disintegrating 4 mg PO Q6H PRN (Reason: nausea and vomiting) Qty: 12 0RF No Action escitalopram oxalate [Lexapro] 10 mg tablet 10 mg PO DAILY hyoscyamine sulfate 0.375 mg tablet extended release 12 hr PO Print Language: Kyrgyz Instructions: Abdominal Pain (ED) Referrals: ESPERANZA NOGUERA [Primary Care Provider] - 1 week Discharge Date/Time: 12/27/23 22:11
[2023-12-27 21:13] LABS: Basophils Absolute Auto 0.1 10^3/uL (0.0-0.1); Basophils Percent Auto 0.5 % (0.2-2.0); Eosinophils Absolute Auto 0.3 10^3/uL (0.0-0.7); Eosinophils Percent Auto 2.9 % (0.9-7.0); Hematocrit 37.2 % (36.0-48.0); Hemoglobin 12.8 g/dL (12.0-16.0); Immature Granulocytes Abs Auto 0.02 10^3/uL (0.00-0.03); Immature Granulocytes Pct Auto 0.2 % (0.0-0.5); Lymphocytes Absolute Auto 4.1 10^3/uL (1.2-3.8); Lymphocytes Percent Auto 44.1 % (20.5-60.0); Mean Corpuscular HGB Conc 34.4 g/dL (29.9-35.2); Mean Corpuscular Hemoglobin 31.9 pg (26.7-34.0); Mean Corpuscular Volume 92.8 fL (81.0-99.0); Mean Platelet Volume 10.7 fL (9.5-13.5); Monocytes Absolute Auto 0.8 10^3/uL (0.3-0.8); Monocytes Percent Auto 8.1 % (1.7-12.0); Neutrophils Absolute Auto 4.1 10^3/uL (1.4-6.5); Neutrophils Percent Auto 44.2 % (43.0-75.0); Platelet Count 191 10^3/uL (150-450); Red Blood Count 4.01 10^6/uL (4.20-5.40); Red Cell Distribution Width 11.4 % (11.0-15.0); White Blood Count 9.3 10^3/uL (4.0-11.0)
[2023-12-27] MEDS: 0.9 % SODIUM CHLORIDE 1,000 ML 1000 ML IV (21:19)
[2023-12-27] MEDS: ONDANSETRON PF 4 MG/2 ML VIAL IV (21:19)
[2023-12-27] MEDS: HYDROMORPHONE HCL 1 MG/ML CARTRIDGE IVP (21:19)
[2023-12-27] MEDS: HYOSCYAMINE SULFATE 0.125 MG TAB.SUBL SL (21:19)
[2023-12-27 21:28] LABS: HCG Qualitative NEGATIVE (NEGATIVE)
[2023-12-27 21:33] LABS: Alanine Aminotransferase 14 U/L (14-59); Albumin Globulin Ratio 1.2; Albumin Level 4.1 g/dL (3.4-5.0); Alkaline Phosphatase 58 U/L (46-116); Amylase 45 U/L (25-115); Anion Gap 11.4; Aspartate Amino Transferase 13 U/L (15-37); BUN Creatinine Ratio 14.8; Bilirubin Direct 0.1 mg/dL (0.0-0.2); Bilirubin Total 0.5 mg/dL (0.2-1.0); Calcium 9.5 mg/dL (8.5-10.1); Carbon Dioxide 28.1 mmol/L (21.0-32.0); Chloride 102 mmol/L (98-107); Estimated GFR (African America >60 (>=60); Estimated GFR (Non-African Ame >60 (>=60); Globulin 3.3 g/dL; Glucose 106 mg/dL (74-106); Potassium 3.5 mmol/L (3.5-5.1); Sodium 138 mmol/L (136-145); Total Protein 7.4 g/dL (6.4-8.2)
[2023-12-27 21:35] LABS: Lactate/Lactic Acid 1.1 mmol/L (0.4-2.0)
[2023-12-27] MEDS: HYDROCODONE/ACET 5-325 MG TABLET 1 TAB PO (22:06)
[2023-12-27] MEDS: DICYCLOMINE HCL 10 MG CAPSULE 20 MG PO (22:06)
[2023-12-27] MEDS: ONDANSETRON 4 MG RAPDIS TABLET SL (22:06)
== END 2023-12-27 22:11 | disposition home or self-care (01) ==
PROVIDERS: Physician Assistant; Emergency Provider Internal Medicine; PCP Family Medicine
DX: R10.9 Unspecified abdominal pain (principal)
CPT/HCPCS: 36415; 80048; 80076; 82150; 83605; 83690; 84703; 85025; 96361; 96374; 96375; 99285; J1170

== ENCOUNTER 2024-01-01 10:44 | Day surgery (SDC) | payer BC, SELFPAY ==
[2024-01-01] VITALS (11 sets, daily range): BP systolic 108–124; BP diastolic 58–81; PULSE 80–103; TEMP 36.7–36.9; O2SAT 95–100; BMI 22.7
--- NOTE | 2024-01-01 11:02 | CT_ITS ---
The [address] [address] Patient Name: CHIOMA ALONZO MRN: [id number] date: 2000 Sex: F Assigned Patient Location: ER Current Patient Location: ER Accession/Order Number: [id number] Exam Date: 01/01/2024 11:55 Report Date: 01/01/2024 12:30 At the request of: SHAHEED MACIAS Procedure: CT abdomen pelvis w con EXAM: CT abdomen pelvis w con HISTORY: ruq pain COMPARISON: CT abdomen pelvis 04/18/2023. TECHNIQUE: Following the intravenous administration of 99 cc of Omnipaque 300, axial soft tissue windows of the abdomen and pelvis were performed with coronal and sagittal reformats. CT dose reduction technique was used including Automated Exposure Control. Findings: ABDOMEN: The visualized portions of the liver are unremarkable. The spleen, pancreas, and adrenal glands are unremarkable. No renal stones or collecting system dilatation. Right renal cyst measuring 1.5 cm. The visualized portions of the bilateral ureters are nondilated. Evaluation of the bowel is limited given the absence of oral contrast. Colonic wall thickening. This likely relates to lack of distention. The appendix is fluid-filled and mildly dilated upwards of 0.9 cm. There is an appendicolith present. There is subtle adjacent stranding of the fat. The aorta is normal caliber. No enlarged abdominal lymph nodes or free abdominal fluid. Pelvis: Unremarkable bladder. The uterus is present and retroverted. Otherwise, unremarkable within the limits of this the. Within the right adnexa there is a rim-enhancing somewhat irregularly-shaped cystic lesion measuring 2.1 cm and likely relating to an involuting ovarian cyst. Small amount of free fluid within the pelvis is likely physiologic. No enlarged pelvic lymph nodes. No aggressive sclerotic or lytic osseous lesions. Impression 1. There is an appendicolith near the base of the appendix. The appendix is fluid-filled and mildly dilated with subtle stranding of fat. Findings are concerning for early acute appendicitis. 2. Probable involuting right ovarian cyst. Electronically authenticated by: RAUL QUESADA Date: 01/01/2024 12:30
--- NOTE | 2024-01-01 11:03 | ED.GENADUL1 ---
HPI HPI - General Adult General Chief complaint: Abdominal Pain Stated complaint: STOMACH PAIN Time Seen by Provider: 01/01/24 11:01 Source: patient Mode of arrival: walk-in History of Present Illness HPI narrative: Patient is a 23-year-old female who had her gallbladder removed 1 month ago at the [facility]. Patient was here in the ER last , had lab work done, refused to have a CT of the abdomen pelvis at that time. Patient is back again with right upper quadrant abdominal pain, colicky pain, diffuse pain All systems are negative except as noted/marked. All systems reviewed and otherwise negative. Nurses note and vital signs reviewed and patient is not hypoxic. General: The patient appears well and in no apparent distress. Patient is resting comfortably on cart. Patient is not toxic, lethargic, or listless Skin: Warm, dry, no pallor noted. There is no rash noted. No petechiae, purpura. Head: Normocephalic, atraumatic Eye: Normal conjunctiva, no drainage, EOMI. PERRL Ears, Nose, Mouth, and Throat: oral mucosa is moist. Nares patent. Mouth without vesicles. Cardiovascular: Regular Rate and Rhythm, no murmur, gallop, rub Respiratory: Patient is in no distress, no accessory muscle use, lungs are clear to auscultation, no wheezing, rales or rhonchi Back: non-tender, no CVA tenderness bilaterally to percussion. No CT LS midline pain GI: no tenderness to palpation, no masses appreciated. No rebound, guarding, or rigidity noted. No distention Musculoskeletal: Patient has full range of motion of all of the extremities, no motor, sensory, or focal neurological deficits Neurological: A&O x4, normal speech Psychiatric: Cooperative Related Data Home Medications ?Medication ?Instructions ?Recorded ?Confirmed escitalopram oxalate 10 mg tablet 10 mg PO DAILY 01/08/23 12/27/23 (Lexapro) hyoscyamine sulfate 0.375 mg mg PO 12/27/23 tablet,extended release,12 hr Previous Rx's ?Medication ?Instructions ?Recorded dicyclomine 20 mg tablet 20 mg PO QID PRN abdominal pain 12/27/23 #12 tabs ondansetron 4 mg disintegrating 4 mg PO Q6H PRN nausea and 12/27/23 tablet vomiting #12 tabs pantoprazole 40 mg tablet,delayed 40 mg PO DAILY #7 tabs 12/27/23 release (Protonix) Allergies Allergy/AdvReac Type Severity Reaction Status Date / Time metronidazole [From Flagyl] Allergy Hives Verified 12/27/23 20:54 Opioid HPI Opioid Management Most Recent Opioid Data: Last Pain Scale 3 12/27/23 22:09 [facility] Medical History (Updated 12/27/23 @ 21:53 by SHELBY Junior) Epigastric pain ?R10.13 - Epigastric pain (ICD-10) Nausea ?R11.0 - Nausea (ICD-10) Acute sinusitis due to respiratory syncytial virus (RSV) ?J01.90 - Acute sinusitis, unspecified (ICD-10) ?B97.4 - Respiratory syncytial virus as the cause of diseases classified elsewhere (ICD-10) Shoulder pain ?M25.519 - Pain in unspecified shoulder (ICD-10) Syncope ?R55 - Syncope and collapse (ICD-10) Paresthesia and pain of extremity ?R20.2 - Paresthesia of skin (ICD-10) ?M79.609 - Pain in unspecified limb (ICD-10) Paresthesia ?R20.2 - Paresthesia of skin (ICD-10) Back pain ?M54.9 - Dorsalgia, unspecified (ICD-10) Insomnia ?G47.00 - Insomnia, unspecified (ICD-10) Depression ?F32.A - Depression, unspecified (ICD-10) Anxiety ?F41.9 - Anxiety disorder, unspecified (ICD-10) COVID-19 ?U07.1 - COVID-19 (ICD-10) Pleurisy ?R09.1 - Pleurisy (ICD-10) IBS (irritable bowel syndrome) ?K58.9 - Irritable bowel syndrome without diarrhea (ICD-10) GERD (gastroesophageal reflux disease) ?K21.9 - Gastro-esophageal reflux disease without esophagitis (ICD-10) Palpitations ?R00.2 - Palpitations (ICD-10) Low vitamin D level ?R79.89 - Other specified abnormal findings of blood chemistry (ICD-10) Fatigue ?R53.83 - Other fatigue (ICD-10) Ovarian cyst ?N83.209 - Unspecified ovarian cyst, unspecified side (ICD-10) Pancreatitis ?K85.90 - Acute pancreatitis without necrosis or infection, unspecified (ICD-10) Abdominal pain ?R10.9 - Unspecified abdominal pain (ICD-10) Altered bowel function ?R19.8 - Other specified symptoms and signs involving the digestive system and abdomen (ICD-10) Diarrhea ?R19.7 - Diarrhea, unspecified (ICD-10) Abnormal uterine bleeding ?N93.9 - Abnormal uterine and vaginal bleeding, unspecified (ICD-10) Pelvic pain ?R10.2 - Pelvic and perineal pain (ICD-10) Fallopian tube disorder ?N83.9 - Noninflammatory disorder of ovary, fallopian tube and broad ligament, unspecified (ICD-10) Muscle weakness ?M62.81 - Muscle weakness (generalized) (ICD-10) Dehydration ?E86.0 - Dehydration (ICD-10) Clostridium difficile infection ?A49.8 - Other bacterial infections of unspecified site (ICD-10) 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 - Personal history of other medical treatment (ICD-10) Surgical History (Updated 01/08/23 @ 10:26 by Lynette Darden NP) History of removal of skin mole ?Z98.890 - Other specified postprocedural states (ICD-10) ?Z87.2 - Personal history of diseases of the skin and subcutaneous tissue (ICD-10) History of wisdom tooth extraction ?K08.409 - Partial loss of teeth, unspecified cause, unspecified class (ICD-10) History of esophagogastroduodenoscopy (EGD) ?Z98.890 - Other specified postprocedural states (ICD-10) History of colonoscopy ?Z98.890 - Other specified postprocedural states (ICD-10) Family History (Updated 01/08/23 @ 10:26 by Lynette Darden NP) Other Family history of hypertension Family history of prostate cancer Family history of stroke Social History Within the past year, how often did you have a drink containing alcohol: never Score interpretation: A score less than 3 is consistent with normal alcohol consumption. 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 Highest level of school completed/degree received: Associate degree: occupational, technical, vocational program Exam Constitutional Vital Signs, click to edit/add: Last Vital Signs Temp 98.1 F 01/01/24 10:46 Pulse 98 H 01/01/24 10:46 Resp 18 01/01/24 10:46 BP 108/81 01/01/24 10:46 Pulse Ox 98 01/01/24 10:46 Course Vital Signs Vital signs: Vital Signs Temperature 98.1 F 01/01/24 10:46 Pulse Rate 98 H 01/01/24 10:46 Respiratory Rate 18 01/01/24 10:46 Blood Pressure 108/81 01/01/24 10:46 Pulse Oximetry 98 01/01/24 10:46 Temperature 98.1 F 01/01/24 10:46 Pulse Rate 98 H 01/01/24 10:46 Respiratory Rate 18 01/01/24 10:46 Blood Pressure 108/81 01/01/24 10:46 Pulse Oximetry 98 01/01/24 10:46 Discharge Plan Discharge Chief Complaint: Abdominal Pain Prescriptions / Home Meds: No Action escitalopram oxalate [Lexapro] 10 mg tablet 10 mg PO DAILY hyoscyamine sulfate 0.375 mg tablet extended release 12 hr PO dicyclomine 20 mg tablet 20 mg PO QID PRN (Reason: abdominal pain) Qty: 12 0RF pantoprazole [Protonix] 40 mg tablet,delayed release (DR/EC) 40 mg PO DAILY Qty: 7 0RF ondansetron 4 mg tablet,disintegrating 4 mg PO Q6H PRN (Reason: nausea and vomiting) Qty: 12 0RF Print Language: Tuvaluan Referrals: ESPERANZA NOGUERA [Primary Care Provider] - 1 week
[2024-01-01] MEDS: 0.9 % SODIUM CHLORIDE 1,000 ML 999 ML IV (11:11)
[2024-01-01] MEDS: DICYCLOMINE HCL 20 MG/2 ML VIAL IM (11:11)
[2024-01-01] MEDS: KETOROLAC TROMETHAMINE 30 MG/ML VIAL 15 MG IVP (11:11)
[2024-01-01] MEDS: ONDANSETRON PF 4 MG/2 ML VIAL IV (11:12)
[2024-01-01 11:18] LABS: Basophils Absolute Auto 0.1 10^3/uL (0.0-0.1); Basophils Percent Auto 0.6 % (0.2-2.0); Eosinophils Absolute Auto 0.2 10^3/uL (0.0-0.7); Eosinophils Percent Auto 1.8 % (0.9-7.0); Hematocrit 42.6 % (36.0-48.0); Hemoglobin 14.1 g/dL (12.0-16.0); Immature Granulocytes Abs Auto 0.03 10^3/uL (0.00-0.03); Immature Granulocytes Pct Auto 0.3 % (0.0-0.5); Lymphocytes Absolute Auto 2.4 10^3/uL (1.2-3.8); Lymphocytes Percent Auto 24.1 % (20.5-60.0); Mean Corpuscular HGB Conc 33.1 g/dL (29.9-35.2); Mean Corpuscular Hemoglobin 31.3 pg (26.7-34.0); Mean Corpuscular Volume 94.5 fL (81.0-99.0); Mean Platelet Volume 10.6 fL (9.5-13.5); Monocytes Absolute Auto 0.8 10^3/uL (0.3-0.8); Monocytes Percent Auto 7.6 % (1.7-12.0); Neutrophils Absolute Auto 6.5 10^3/uL (1.4-6.5); Neutrophils Percent Auto 65.6 % (43.0-75.0); Platelet Count 211 10^3/uL (150-450); Red Blood Count 4.51 10^6/uL (4.20-5.40); Red Cell Distribution Width 11.6 % (11.0-15.0)
[2024-01-01 11:31] LABS: Alanine Aminotransferase 16 U/L (14-59); Albumin Globulin Ratio 1.2; Albumin Level 4.5 g/dL (3.4-5.0); Alkaline Phosphatase 61 U/L (46-116); Anion Gap 9.7; Aspartate Amino Transferase 12 U/L (15-37); BUN Creatinine Ratio 16.4; Bilirubin Total 0.8 mg/dL (0.2-1.0); Calcium 9.8 mg/dL (8.5-10.1); Carbon Dioxide 28.2 mmol/L (21.0-32.0); Chloride 102 mmol/L (98-107); Estimated GFR (African America >60 (>=60); Estimated GFR (Non-African Ame >60 (>=60); Globulin 3.8 g/dL; Glucose 100 mg/dL (74-106); Potassium 3.9 mmol/L (3.5-5.1); Sodium 136 mmol/L (136-145); Total Protein 8.3 g/dL (6.4-8.2)
[2024-01-01 11:41] LABS: Lactate/Lactic Acid 1.3 mmol/L (0.4-2.0)
--- NOTE | 2024-01-01 13:11 | ED_ITS ---
Documented by User: SHELBY Schmidt 01/01/24 15:29 HPI - Abdominal Pain General Chief Complaint: Abdominal Pain Stated Complaint: STOMACH PAIN Time Seen by Provider: 01/01/24 11:01 Source: patient Mode of arrival: walk-in Limitations: no limitations History of Present Illness HPI narrative: 23-year-old female presents to the emergency department with complaint of abdominal pain. Locating pain to the right lower quadrant. Described as sharp. Onset over 300 hours insidiously with progressive worsening to the point where she presented to the emergency department. Has had associated nausea, loss of appetite, chills. Denies any known fevers. Denies any vomiting, diarrhea, dysuria, frequency. Quality:?As above Severity:?Mild Timing: As above, worsening Context: Normal setting and activity? Modifying factors:?Pain worse with palpation Associated symptoms: as above Related Data Home Medications ?Medication ?Instructions ?Recorded ?Confirmed hyoscyamine sulfate 0.375 mg 0.375 mg PO BID 12/27/23 01/01/24 tablet,extended release,12 hr amitriptyline 25 mg tablet 25 mg PO .QHS 01/01/24 01/01/24 Previous Rx's ?Medication ?Instructions ?Recorded pantoprazole 40 mg tablet,delayed 40 mg PO DAILY #7 tabs 12/27/23 release (Protonix) ibuprofen 800 mg tablet 800 mg PO Q8H PRN fever or pain 01/01/24 #14 tabs oxycodone-acetaminophen 5 mg-325 1 tab PO Q6H PRN pain #7 tabs 01/01/24 mg tablet (Percocet) Allergies Allergy/AdvReac Type Severity Reaction Status Date / Time metronidazole [From Flagyl] Allergy Hives Verified 12/27/23 20:54 Review of Systems ROS Narrative CONST: Denies any fever, chills HENT: Denies any congestion, sore throat RESP: Denies any cough, shortness of breath CV: Denies any chest pain, peripheral edema GI: +abd pain.? Denies any nausea, vomiting, diarrhea : Denies any flank pain, dysuria MS: Denies any back pain, myalgias SKIN: Denies any color change, rash NEURO: Denies numbness, weakness PSYCHIATRIC: Denies confusion, agitation [facility] Medical History (Updated 01/01/24 @ 15:29 by SHELBY Schmidt) History of IBS ?Z87.19 - Personal history of other diseases of the digestive system (ICD-10) History of endometriosis ?Z87.42 - Personal history of other diseases of the female genital tract (ICD-10) History of Clostridioides difficile colitis ?Z86.19 - Personal history of other infectious and parasitic diseases (ICD- 10) Epigastric pain ?R10.13 - Epigastric pain (ICD-10) Nausea ?R11.0 - Nausea (ICD-10) Acute sinusitis due to respiratory syncytial virus (RSV) ?J01.90 - Acute sinusitis, unspecified (ICD-10) ?B97.4 - Respiratory syncytial virus as the cause of diseases classified elsewhere (ICD-10) Shoulder pain ?M25.519 - Pain in unspecified shoulder (ICD-10) Syncope ?R55 - Syncope and collapse (ICD-10) Paresthesia and pain of extremity ?R20.2 - Paresthesia of skin (ICD-10) ?M79.609 - Pain in unspecified limb (ICD-10) Paresthesia ?R20.2 - Paresthesia of skin (ICD-10) Back pain ?M54.9 - Dorsalgia, unspecified (ICD-10) Insomnia ?G47.00 - Insomnia, unspecified (ICD-10) Depression ?F32.A - Depression, unspecified (ICD-10) Anxiety ?F41.9 - Anxiety disorder, unspecified (ICD-10) COVID-19 ?U07.1 - COVID-19 (ICD-10) Pleurisy ?R09.1 - Pleurisy (ICD-10) IBS (irritable bowel syndrome) ?K58.9 - Irritable bowel syndrome without diarrhea (ICD-10) GERD (gastroesophageal reflux disease) ?K21.9 - Gastro-esophageal reflux disease without esophagitis (ICD-10) Palpitations ?R00.2 - Palpitations (ICD-10) Low vitamin D level ?R79.89 - Other specified abnormal findings of blood chemistry (ICD-10) Fatigue ?R53.83 - Other fatigue (ICD-10) Ovarian cyst ?N83.209 - Unspecified ovarian cyst, unspecified side (ICD-10) Pancreatitis ?K85.90 - Acute pancreatitis without necrosis or infection, unspecified (ICD- 10) Abdominal pain ?R10.9 - Unspecified abdominal pain (ICD-10) Altered bowel function ?R19.8 - Other specified symptoms and signs involving the digestive system and abdomen (ICD-10) Diarrhea ?R19.7 - Diarrhea, unspecified (ICD-10) Abnormal uterine bleeding ?N93.9 - Abnormal uterine and vaginal bleeding, unspecified (ICD-10) Pelvic pain ?R10.2 - Pelvic and perineal pain (ICD-10) Fallopian tube disorder ?N83.9 - Noninflammatory disorder of ovary, fallopian tube and broad ligament, unspecified (ICD-10) Muscle weakness ?M62.81 - Muscle weakness (generalized) (ICD-10) Dehydration ?E86.0 - Dehydration (ICD-10) Clostridium difficile infection ?A49.8 - Other bacterial infections of unspecified site (ICD-10) 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 - Personal history of other medical treatment (ICD-10) Surgical History (Updated 01/08/23 @ 10:26 by Lynette Darden NP) History of removal of skin mole ?Z98.890 - Other specified postprocedural states (ICD-10) ?Z87.2 - Personal history of diseases of the skin and subcutaneous tissue (ICD-10) History of wisdom tooth extraction ?K08.409 - Partial loss of teeth, unspecified cause, unspecified class (ICD- 10) History of esophagogastroduodenoscopy (EGD) ?Z98.890 - Other specified postprocedural states (ICD-10) History of colonoscopy ?Z98.890 - Other specified postprocedural states (ICD-10) Family History (Updated 01/08/23 @ 10:26 by Lynette Darden NP) Other Family history of hypertension Family history of prostate cancer Family history of stroke Social History Within the past year, how often did you have a drink containing alcohol: never Score interpretation: A score less than 3 is consistent with normal alcohol consumption. 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 No diaphoresis.?? HENT: normocephalic, atraumatic, moist mucous membrane, no abnormalities of the nose noted, hearing normal EYES: normal appearing conjunctiva, no apparent discharge bilat NECK: normal appearance CV: normal rate, regular rhythm, no murmur RESP: normal effort, speaking in complete sentences. Lung sounds clear and equal bilat.? No wheezes, rales, rhonchi GI: normal bowel sounds, soft, no distension, + tenderness RLQ : no CVA tenderness MS: no edema, tenderness SKIN: no pallor NEURO: A&Ox 3, no focal findings PSYCH: normal mood, affect Constitutional Vital Signs, click to edit/add: Last Vital Signs Temp 98.1 F 01/01/24 16:57 Pulse 90 01/01/24 17:27 Resp 14 01/01/24 17:27 BP 117/72 01/01/24 17:27 Pulse Ox 100 01/01/24 17:27 O2 Del Method Room Air 01/01/24 17:27 Course Consultations Consultation #1: Dr. Bolton Time: 13:16 Vital Signs Vital signs: Vital Signs Temperature 98.1 F 01/01/24 10:46 Pulse Rate 98 H 01/01/24 10:46 Respiratory Rate 18 01/01/24 10:46 Blood Pressure 108/81 01/01/24 10:46 Pulse Oximetry 98 01/01/24 10:46 Temperature 98.1 F 01/01/24 16:57 Pulse Rate 90 01/01/24 17:27 Respiratory Rate 14 01/01/24 17:27 Blood Pressure 117/72 01/01/24 17:27 Pulse Oximetry 100 01/01/24 17:27 Oxygen Delivery Method Room Air 01/01/24 17:27 MDM - Abdominal Pain MDM Narrative Medical decision making narrative: This is a pleasant 23-year-old female presented to the emergency department with complaint of right lower quadrant abdominal pain. Onset 0300 hrs. this morning with chills, nausea. Denies any known fever. Denies vomiting, diarrhea, dysuria, frequency. Patient with history of cholecystectomy 1 month ago admitted [facility]. Patient states she last ate or drink something before going to bed last night. On arrival, afebrile, vital signs are stable. On exam, nontoxic and well-appearing patient in no apparent distress. Heart regular rate and rhythm. Lung sounds clear and equal bilaterally. Abdomen is soft with tenderness to the right lower quadrant. Labs reveal no leukocytosis, anemia, thrombocytopenia, electrolyte imbalance, renal impairment. LFTs unremarkable. Lipase 20. test was negative. CT abdomen pelvis imaging, per radiologist reveals, there is an appendicolith near the base of the appendix. The appendix is fluid-filled and mildly dilated with subtle stranding fat. Findings are concerning for early acute appendicitis. Patient was discussed with surgery, Dr. Bolton we will place patient on schedule for later today. Patient's pain treated with Toradol, morphine and given antiemetic Zofran. Patient otherwise remained stable during ED course Favor right lower quadrant abdominal pain secondary to acute appendicitis Perforation less likely based on CT scan Disposition ? The patient was admitted. PLEASE NOTE: Portions of the medical record may have been produced using electronic supervisor kosher dietary service and may contain errors with respect to translation of words which may not have been identified prior to finalization of the chart. Lab Data Labs: Lab Results 01/01/24 Range/Units 11:00 WBC 10.0 (4.0-11.0) 10^3/uL RBC 4.51 (4.20-5.40) 10^6/uL Hgb 14.1 (12.0-16.0) g/dL Hct 42.6 (36.0-48.0) % MCV 94.5 (81.0-99.0) fL MCH 31.3 (26.7-34.0) pg MCHC 33.1 (29.9-35.2) g/dL RDW 11.6 (11.0-15.0) % Plt Count 211 (150-450) 10^3/uL MPV 10.6 (9.5-13.5) fL Neut % (Auto) 65.6 (43.0-75.0) % Lymph % (Auto) 24.1 (20.5-60.0) % [place] % (Auto) 7.6 (1.7-12.0) % Eos % (Auto) 1.8 (0.9-7.0) % Baso % (Auto) 0.6 (0.2-2.0) % Neut # (Auto) 6.5 (1.4-6.5) 10^3/uL Lymph # (Auto) 2.4 (1.2-3.8) 10^3/uL [place] # (Auto) 0.8 (0.3-0.8) 10^3/uL Eos # (Auto) 0.2 (0.0-0.7) 10^3/uL Baso # (Auto) 0.1 (0.0-0.1) 10^3/uL Abs Immat Gran (auto) 0.03 (0.00-0.03) 10^3/uL Imm/Tot Granulo (auto) 0.3 (0.0-0.5) % Sodium 136 (136-145) mmol/L Potassium 3.9 (3.5-5.1) mmol/L Chloride 102 (98-107) mmol/L Carbon Dioxide 28.2 (21.0-32.0) mmol/L Anion Gap 9.7 BUN 11.0 (7.0-18.0) mg/dL Creatinine 0.67 (0.55-1.02) mg/dL Est GFR ( Amer) >60 (>=60) Est GFR (Non-Af Amer) >60 (>=60) BUN/Creatinine Ratio 16.4 Glucose 100 (74-106) mg/dL Lactate 1.3 (0.4-2.0) mmol/L Calcium 9.8 (8.5-10.1) mg/dL Total Bilirubin 0.8 (0.2-1.0) mg/dL AST 12 L (15-37) U/L ALT 16 (14-59) U/L Alkaline Phosphatase 61 (46-116) U/L Total Protein 8.3 H (6.4-8.2) g/dL Albumin 4.5 (3.4-5.0) g/dL Globulin 3.8 g/dL Albumin/Globulin Ratio 1.2 Lipase 20.0 (16.0-77.0) U/L Serum HCG, Qual Negative (NEGATIVE) Discharge Plan Discharge Chief Complaint: Abdominal Pain Clinical Impression: Acute appendicitis, Abdominal pain, right lower quadrant Patient Disposition: Admitted as Observation Condition: Good Discharge Date/Time: 01/01/24 13:53 Documented by User: Marshall Bolden MD 01/01/24 20:13 HPI - Abdominal Pain General Chief Complaint: Abdominal Pain Stated Complaint: STOMACH PAIN Time Seen by Provider: 01/01/24 11:01 Related Data Home Medications ?Medication ?Instructions ?Recorded ?Confirmed hyoscyamine sulfate 0.375 mg 0.375 mg PO BID 12/27/23 01/01/24 tablet,extended release,12 hr amitriptyline 25 mg tablet 25 mg PO .QHS 01/01/24 01/01/24 Previous Rx's ?Medication ?Instructions ?Recorded pantoprazole 40 mg tablet,delayed 40 mg PO DAILY #7 tabs 12/27/23 release (Protonix) ibuprofen 800 mg tablet 800 mg PO Q8H PRN fever or pain 01/01/24 #14 tabs oxycodone-acetaminophen 5 mg-325 1 tab PO Q6H PRN pain #7 tabs 01/01/24 mg tablet (Percocet) Allergies Allergy/AdvReac Type Severity Reaction Status Date / Time metronidazole [From Flagyl] Allergy Hives Verified 12/27/23 20:54 PFSH PFSH Medical History (Updated 01/01/24 @ 15:29 by SHELBY Schmidt) History of IBS ?Z87.19 - Personal history of other diseases of the digestive system (ICD-10) History of endometriosis ?Z87.42 - Personal history of other diseases of the female genital tract (ICD-10) History of Clostridioides difficile colitis ?Z86.19 - Personal history of other infectious and parasitic diseases (ICD- 10) Epigastric pain ?R10.13 - Epigastric pain (ICD-10) Nausea ?R11.0 - Nausea (ICD-10) Acute sinusitis due to respiratory syncytial virus (RSV) ?J01.90 - Acute sinusitis, unspecified (ICD-10) ?B97.4 - Respiratory syncytial virus as the cause of diseases classified elsewhere (ICD-10) Shoulder pain ?M25.519 - Pain in unspecified shoulder (ICD-10) Syncope ?R55 - Syncope and collapse (ICD-10) Paresthesia and pain of extremity ?R20.2 - Paresthesia of skin (ICD-10) ?M79.609 - Pain in unspecified limb (ICD-10) Paresthesia ?R20.2 - Paresthesia of skin (ICD-10) Back pain ?M54.9 - Dorsalgia, unspecified (ICD-10) Insomnia ?G47.00 - Insomnia, unspecified (ICD-10) Depression ?F32.A - Depression, unspecified (ICD-10) Anxiety ?F41.9 - Anxiety disorder, unspecified (ICD-10) COVID-19 ?U07.1 - COVID-19 (ICD-10) Pleurisy ?R09.1 - Pleurisy (ICD-10) IBS (irritable bowel syndrome) ?K58.9 - Irritable bowel syndrome without diarrhea (ICD-10) GERD (gastroesophageal reflux disease) ?K21.9 - Gastro-esophageal reflux disease without esophagitis (ICD-10) Palpitations ?R00.2 - Palpitations (ICD-10) Low vitamin D level ?R79.89 - Other specified abnormal findings of blood chemistry (ICD-10) Fatigue ?R53.83 - Other fatigue (ICD-10) Ovarian cyst ?N83.209 - Unspecified ovarian cyst, unspecified side (ICD-10) Pancreatitis ?K85.90 - Acute pancreatitis without necrosis or infection, unspecified (ICD- 10) Abdominal pain ?R10.9 - Unspecified abdominal pain (ICD-10) Altered bowel function ?R19.8 - Other specified symptoms and signs involving the digestive system and abdomen (ICD-10) Diarrhea ?R19.7 - Diarrhea, unspecified (ICD-10) Abnormal uterine bleeding ?N93.9 - Abnormal uterine and vaginal bleeding, unspecified (ICD-10) Pelvic pain ?R10.2 - Pelvic and perineal pain (ICD-10) Fallopian tube disorder ?N83.9 - Noninflammatory disorder of ovary, fallopian tube and broad ligament, unspecified (ICD-10) Muscle weakness ?M62.81 - Muscle weakness (generalized) (ICD-10) Dehydration ?E86.0 - Dehydration (ICD-10) Clostridium difficile infection ?A49.8 - Other bacterial infections of unspecified site (ICD-10) 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 - Personal history of other medical treatment (ICD-10) Surgical History (Updated 01/08/23 @ 10:26 by Lynette Darden NP) History of removal of skin mole ?Z98.890 - Other specified postprocedural states (ICD-10) ?Z87.2 - Personal history of diseases of the skin and subcutaneous tissue (ICD-10) History of wisdom tooth extraction ?K08.409 - Partial loss of teeth, unspecified cause, unspecified class (ICD- 10) History of esophagogastroduodenoscopy (EGD) ?Z98.890 - Other specified postprocedural states (ICD-10) History of colonoscopy ?Z98.890 - Other specified postprocedural states (ICD-10) Family History (Updated 01/08/23 @ 10:26 by Lynette Darden NP) Other Family history of hypertension Family history of prostate cancer Family history of stroke Social History Within the past year, how often did you have a drink containing alcohol: never Score interpretation: A score less than 3 is consistent with normal alcohol consumption. 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 Highest level of school completed/degree received: Associate degree: occupational, technical, vocational program Exam Constitutional Vital Signs, click to edit/add: Last Vital Signs Temp 98.1 F 01/01/24 16:57 Pulse 90 01/01/24 17:27 Resp 14 01/01/24 17:27 BP 117/72 01/01/24 17:27 Pulse Ox 100 01/01/24 17:27 O2 Del Method Room Air 01/01/24 17:27 Course Vital Signs Vital signs: Vital Signs Temperature 98.1 F 01/01/24 10:46 Pulse Rate 98 H 01/01/24 10:46 Respiratory Rate 18 01/01/24 10:46 Blood Pressure 108/81 01/01/24 10:46 Pulse Oximetry 98 01/01/24 10:46 Temperature 98.1 F 01/01/24 16:57 Pulse Rate 90 01/01/24 17:27 Respiratory Rate 14 01/01/24 17:27 Blood Pressure 117/72 01/01/24 17:27 Pulse Oximetry 100 01/01/24 17:27 Oxygen Delivery Method Room Air 01/01/24 17:27 MDM - Abdominal Pain MDM Narrative Medical decision making narrative: This is a pleasant 23-year-old female presented to the emergency department with complaint of right lower quadrant abdominal pain. Onset 0300 hrs. this morning with chills, nausea. Denies any known fever. Denies vomiting, diarrhea, dysuria, frequency. Patient with history of cholecystectomy 1 month ago admitted [facility]. Patient states she last ate or drink something before going to bed last night. On arrival, afebrile, vital signs are stable. On exam, nontoxic and well-appearing patient in no apparent distress. Heart regular rate and rhythm. Lung sounds clear and equal bilaterally. Abdomen is soft with tenderness to the right lower quadrant. Labs reveal no leukocytosis, anemia, thrombocytopenia, electrolyte imbalance, renal impairment. LFTs unremarkable. Lipase 20. test was negative. CT abdomen pelvis imaging, per radiologist reveals, there is an appendicolith near the base of the appendix. The appendix is fluid-filled and mildly dilated with subtle stranding fat. Findings are concerning for early acute appendicitis. Patient was discussed with surgery, Dr. Bolton we will place patient on schedule for later today. Patient's pain treated with Toradol, morphine and given antiemetic Zofran. Patient otherwise remained stable during ED course Favor right lower quadrant abdominal pain secondary to acute appendicitis Perforation less likely based on CT scan Disposition ? The patient was admitted. PLEASE NOTE: Portions of the medical record may have been produced using electronic supervisor kosher dietary service and may contain errors with respect to translation of words which may not have been identified prior to finalization of the chart. I, Dr Bolden, have reviewed the above progress note and course of action in the ER; agree with the above. I have personally seen and evaluated this patient, gone over history and physical, and discussed disposition and treatment plan with the patient. Lab Data Labs: Lab Results 01/01/24 Range/Units 11:00 WBC 10.0 (4.0-11.0) 10^3/uL RBC 4.51 (4.20-5.40) 10^6/uL Hgb 14.1 (12.0-16.0) g/dL Hct 42.6 (36.0-48.0) % MCV 94.5 (81.0-99.0) fL MCH 31.3 (26.7-34.0) pg MCHC 33.1 (29.9-35.2) g/dL RDW 11.6 (11.0-15.0) % Plt Count 211 (150-450) 10^3/uL MPV 10.6 (9.5-13.5) fL Neut % (Auto) 65.6 (43.0-75.0) % Lymph % (Auto) 24.1 (20.5-60.0) % [place] % (Auto) 7.6 (1.7-12.0) % Eos % (Auto) 1.8 (0.9-7.0) % Baso % (Auto) 0.6 (0.2-2.0) % Neut # (Auto) 6.5 (1.4-6.5) 10^3/uL Lymph # (Auto) 2.4 (1.2-3.8) 10^3/uL [place] # (Auto) 0.8 (0.3-0.8) 10^3/uL Eos # (Auto) 0.2 (0.0-0.7) 10^3/uL Baso # (Auto) 0.1 (0.0-0.1) 10^3/uL Abs Immat Gran (auto) 0.03 (0.00-0.03) 10^3/uL Imm/Tot Granulo (auto) 0.3 (0.0-0.5) % Sodium 136 (136-145) mmol/L Potassium 3.9 (3.5-5.1) mmol/L Chloride 102 (98-107) mmol/L Carbon Dioxide 28.2 (21.0-32.0) mmol/L Anion Gap 9.7 BUN 11.0 (7.0-18.0) mg/dL Creatinine 0.67 (0.55-1.02) mg/dL Est GFR ( Amer) >60 (>=60) Est GFR (Non-Af Amer) >60 (>=60) BUN/Creatinine Ratio 16.4 Glucose 100 (74-106) mg/dL Lactate 1.3 (0.4-2.0) mmol/L Calcium 9.8 (8.5-10.1) mg/dL Total Bilirubin 0.8 (0.2-1.0) mg/dL AST 12 L (15-37) U/L ALT 16 (14-59) U/L Alkaline Phosphatase 61 (46-116) U/L Total Protein 8.3 H (6.4-8.2) g/dL Albumin 4.5 (3.4-5.0) g/dL Globulin 3.8 g/dL Albumin/Globulin Ratio 1.2 Lipase 20.0 (16.0-77.0) U/L Serum HCG, Qual Negative (NEGATIVE) Discharge Plan Discharge Chief Complaint: Abdominal Pain Clinical Impression: Acute appendicitis, Abdominal pain, right lower quadrant Patient Disposition: Admitted as Observation Condition: Good Discharge Date/Time: 01/01/24 13:53
[2024-01-01 13:25] LABS: HCG Qualitative NEGATIVE (NEGATIVE); Internal Control Within Normal Limits
[2024-01-01] MEDS: MORPHINE SULFATE 2 MG/ML SYRINGE IV (13:25)
--- NOTE | 2024-01-01 13:39 | P.HP_ITS ---
HPI H&P: HPI History of Present Illness Chief complaint: STOMACH PAIN, APPENDICITIS Narrative: Rosa White is a 23-year-old female who presents with right lower quadrant abdominal pain approximately 1 month after having a cholecystectomy performed [facility]. She had a CT scan of the abdomen and pelvis performed which shows an appendicolith and probable appendicitis. Her white blood count is normal. 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 Cipro and Flagyl for infection after removal of a skin lesion and a UTI. She does not want to receive prophylactic antibiotics. She is afraid of daniela C. difficile enterocolitis again. She had a lap maricarmen done at the [facility] and they did not give her antibiotics and she did well. She understands that she could have postoperative infection or an abscess afterwards. 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 Her is at the bedside. 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 She is 0 para 0. Her mother is Ana Travis RN who works in the ICU at the [facility]. She is currently being worked up for MAL S; median arcuate ligament syndrome at the [facility] for which they are considering surgery. Opioid HPI Opioid Management Most Recent Opioid Data: Last Pain Scale 9 01/01/24 11:11 Last MAR Pain Assessment 01/01/24 11:11 Review of Systems ROS Status of ROS 10 or more systems reviewed and unremark able except as noted in history and below [facility] Medical History (Updated 01/01/24 @ 15:26 by Martin Bolton MD) History of IBS ?Z87.19 - Personal history of other diseases of the digestive system (ICD-10) History of endometriosis ?Z87.42 - Personal history of other diseases of the female genital tract (ICD-10) History of Clostridioides difficile colitis ?Z86.19 - Personal history of other infectious and parasitic diseases (ICD- 10) Epigastric pain ?R10.13 - Epigastric pain (ICD-10) Nausea ?R11.0 - Nausea (ICD-10) Acute sinusitis due to respiratory syncytial virus (RSV) ?J01.90 - Acute sinusitis, unspecified (ICD-10) ?B97.4 - Respiratory syncytial virus as the cause of diseases classified elsewhere (ICD-10) Shoulder pain ?M25.519 - Pain in unspecified shoulder (ICD-10) Syncope ?R55 - Syncope and collapse (ICD-10) Paresthesia and pain of extremity ?R20.2 - Paresthesia of skin (ICD-10) ?M79.609 - Pain in unspecified limb (ICD-10) Paresthesia ?R20.2 - Paresthesia of skin (ICD-10) Back pain ?M54.9 - Dorsalgia, unspecified (ICD-10) Insomnia ?G47.00 - Insomnia, unspecified (ICD-10) Depression ?F32.A - Depression, unspecified (ICD-10) Anxiety ?F41.9 - Anxiety disorder, unspecified (ICD-10) COVID-19 ?U07.1 - COVID-19 (ICD-10) Pleurisy ?R09.1 - Pleurisy (ICD-10) IBS (irritable bowel syndrome) ?K58.9 - Irritable bowel syndrome without diarrhea (ICD-10) GERD (gastroesophageal reflux disease) ?K21.9 - Gastro-esophageal reflux disease without esophagitis (ICD-10) Palpitations ?R00.2 - Palpitations (ICD-10) Low vitamin D level ?R79.89 - Other specified abnormal findings of blood chemistry (ICD-10) Fatigue ?R53.83 - Other fatigue (ICD-10) Ovarian cyst ?N83.209 - Unspecified ovarian cyst, unspecified side (ICD-10) Pancreatitis ?K85.90 - Acute pancreatitis without necrosis or infection, unspecified (ICD- 10) Abdominal pain ?R10.9 - Unspecified abdominal pain (ICD-10) Altered bowel function ?R19.8 - Other specified symptoms and signs involving the digestive system and abdomen (ICD-10) Diarrhea ?R19.7 - Diarrhea, unspecified (ICD-10) Abnormal uterine bleeding ?N93.9 - Abnormal uterine and vaginal bleeding, unspecified (ICD-10) Pelvic pain ?R10.2 - Pelvic and perineal pain (ICD-10) Fallopian tube disorder ?N83.9 - Noninflammatory disorder of ovary, fallopian tube and broad ligament, unspecified (ICD-10) Muscle weakness ?M62.81 - Muscle weakness (generalized) (ICD-10) Dehydration ?E86.0 - Dehydration (ICD-10) Clostridium difficile infection ?A49.8 - Other bacterial infections of unspecified site (ICD-10) 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 - Personal history of other medical treatment (ICD-10) Surgical History (Updated 01/08/23 @ 10:26 by Lynette Darden NP) History of removal of skin mole ?Z98.890 - Other specified postprocedural states (ICD-10) ?Z87.2 - Personal history of diseases of the skin and subcutaneous tissue (ICD-10) History of wisdom tooth extraction ?K08.409 - Partial loss of teeth, unspecified cause, unspecified class (ICD- 10) History of esophagogastroduodenoscopy (EGD) ?Z98.890 - Other specified postprocedural states (ICD-10) History of colonoscopy ?Z98.890 - Other specified postprocedural states (ICD-10) Family History (Updated 01/08/23 @ 10:26 by Lynette Darden NP) Other Family history of hypertension Family history of prostate cancer Family history of stroke Social History Within the past year, how often did you have a drink containing alcohol: never Score interpretation: A score less than 3 is consistent with normal alcohol consumption. 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 Highest level of school completed/degree received: Associate degree: occupational, technical, vocational program Meds Home Medications and Allergies Home Medications ?Medication ?Instructions ?Recorded ?Confirmed ?Type escitalopram oxalate 10 mg tablet 10 mg PO DAILY 01/08/23 12/27/23 History (Lexapro) dicyclomine 20 mg tablet 20 mg PO QID PRN abdominal pain 12/27/23 Rx #12 tabs hyoscyamine sulfate 0.375 mg mg PO 12/27/23 History tablet,extended release,12 hr ondansetron 4 mg disintegrating 4 mg PO Q6H PRN nausea and 12/27/23 Rx tablet vomiting #12 tabs pantoprazole 40 mg tablet,delayed 40 mg PO DAILY #7 tabs 12/27/23 Rx release (Protonix) Allergies Allergy/AdvReac Type Severity Reaction Status Date / Time metronidazole [From Flagyl] Allergy Hives Verified 12/27/23 20:54 Exam Constitutional Vital Signs, click to edit/add: Last Vital Signs Temp 98.1 F 01/01/24 10:46 Pulse 86 01/01/24 13:25 Resp 16 01/01/24 13:25 BP 113/81 01/01/24 13:25 Pulse Ox 100 01/01/24 13:25 O2 Del Method Room Air 01/01/24 13:25 Documenting provider has reviewed patient's vital signs: yes Common normals: no apparent distress, average body habitus, oriented x3, healthy appearing, alert and well nourished General appearance: cooperative, comfortable, well kempt and well developed Orientation/consciousness: Yes awake, Yes oriented to person, Yes oriented to place and Yes oriented to time Eye Common normals: no scleral icterus Pupil: PERRL GI Common normals: Normal to inspection, nondistended, normoactive bowel sounds present and soft to palpation Palpation: tender Details: RLQ and McBurney's point Neuro Common normals: oriented x3, CN's II-XII intact bilaterally, moves all extremities and no focal motor deficits Results Labs Labs: Short CBC 01/01/24 Range/Units 11:00 WBC 10.0 (4.0-11.0) 10^3/uL Hgb 14.1 (12.0-16.0) g/dL Hct 42.6 (36.0-48.0) % Plt Count 211 (150-450) 10^3/uL BMP 01/01/24 11:00 Sodium 136 Potassium 3.9 Chloride 102 Carbon Dioxide 28.2 BUN 11.0 Creatinine 0.67 Glucose 100 Calcium 9.8 Liver Function 01/01/24 Range/Units 11:00 Total Bilirubin 0.8 (0.2-1.0) mg/dL AST 12 L (15-37) U/L ALT 16 (14-59) U/L Alkaline Phosphatase 61 (46-116) U/L Albumin 4.5 (3.4-5.0) g/dL Additional Findings Additional findings: CT scan reviewed Assessment and Plan Assessment and Plan (1) Acute appendicitis: Qualifiers: Acute appendicitis type: with localized peritonitis Appendicitis gangrene presence: unspecified whether gangrene present Appendicitis perforation presence: unspecified whether perforation present Appendicitis abscess presence: unspecified whether abscess present Qualified Code(s): K35.30 - Acute appendicitis with localized peritonitis, without perforation or gangrene (2) History of Clostridioides difficile colitis: (3) History of endometriosis: (4) History of IBS: Plan Laparoscopic appendectomy with possible open appendectomy. Risks benefits and alternatives of surgery include infection, bleeding, postoperative abscess weeks later, blood clots to legs or lungs, pneumonia, heart attack, stroke, and/or . Patient refuses prophylactic antibiotics due to fear of daniela C. difficile enterocolitis and understands she could have up postoperative abscess in the future. She still refuses; understands as well.
[2024-01-01] MEDS: LACTATED RINGER'S SOLUTION 1,000 ML 50 ML IV ×2 (14:09→16:17)
--- NOTE | 2024-01-01 15:08 | PC.NURSE ---
1510- Dr. Bolton at bedside. Talks with patient about pre-op antibiotics. Patient states that she doesn't want any antibiotics pre-op. Patient verbalizes understanding that it increases chance of infection and .
--- NOTE | 2024-01-01 15:27 | PM.GSPRC ---
Date of procedure: 01/01/24 Indications for Procedure: Acute appendicitis/abnormal CT abdomen pelvis Pre-op diagnosis: Acute appendicitis/abnormal CT abdomen pelvis Post-op diagnosis: same as pre-op Procedure: Laparoscopic appendectomy Findings: Retrocecal appendicitis Anesthesia: RHSY Surgeon: Martin Bolton Procedure Summary: LAPAROSCOPIC APPENDECTOMY The patient was taken to the operating suite, placed in the supine position and given a general anesthetic by the anesthesiologist. The abdomen was prepped and draped in the usual sterile fashion. A subumbilical incision was made down to the anterior rectus fascia and was opened in the midline and traction sutures of #0 Vicryl were placed. I had difficulty entering the peritoneal cavity therefore went up to the left upper quadrant and placed a Veress needle at Tillman's point and insufflated the abdomen to 15 mmHg pressure. The abdomen was insufflated with carbon dioxide to 15 mmHg pressure. The laparoscope was then placed with an acute retrocecal appendix was found when the patient was placed in Trendelenburg position. Another 5 mm port was placed in the right upper quadrant all under direct visualization. A grasper was placed on the mesoappendix and it was held anteriorly on traction and then a curved dissector was used to dissect a window in the mesoappendix and then an Endo-DAY stapling device was fired and the mesoappendix was stapled. The base of the appendix was then taken down with the LigaSure device maintaining hemostasis. Hemostasis being maintained, all ports were then removed after the appendix had been removed in a bag. Anterior rectus fascia was closed with #0 Vicryl suture in an interrupted fashion and the other two port sites were also closed with #0 Vicryl suture in an interrupted fashion. 0.5% Marcaine 30 cc was used to anesthetize subcutaneous tissue. Skin was closed with 4 Monocryl suture in running subcuticular fashion. Sponge, needle and instrument counts were correct. Case was clean, contaminated emergency Specimen - Appendix The patient went to recovery room in satisfactory condition. 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
[2024-01-01] MEDS: BUPIVACAINE HCL 0.5% PF 50 MG/10 ML VIAL 20 ML INJ (16:47)
== END 2024-01-01 18:30 | disposition home or self-care (01) ==
LOC: ER 14:01 → SURGOUT 14:05 → MS 17:39
PROVIDERS: Physician Assistant; Emergency Provider Emergency Medicine; PCP Family Medicine; Visit Provider Surgery
PROC: (CPT 840; principal; 2024-01-01 15:15)
DX: K35.80 Unspecified acute appendicitis (principal); Z87.440 Personal history of urinary (tract) infections; Z90.49 Acquired absence of other specified parts of digestive tract; Z87.19 Personal history of other diseases of the digestive system
CPT/HCPCS: 44970; 36415; 74177; 80053; 83605; 83690; 84703; 85025; 88304; 96372; 96374; 96375; 99285; J0131; J0500; J0665; J1110; J1170; J1885; J2250; J2270; J2371; J2405; J2704; J3010; Q9967

== ENCOUNTER 2024-02-04 20:41 | Outpatient (REF) | payer BC, SELFPAY ==
--- OUTSIDE RECORDS SUMMARY | 2024-02-04 20:47 | XMS_ITS | CCD ---
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 Name Role Phone Arlene Negro Unavailable Jaya Parikh Unavailable SELF, REFERRED Primary Care Unavailable SELF, REFERRED Referring Unavailable ZENON HUGGINS Admitting Unavailable ZENON HUGGINS Attending Unavailable Unavailable Primary Care Provider UnavailPHANI De Paz Attending Unavailable JAYA PARIKH Referring Unavailable OBIE NELSON Attending Unavailable KOBEISSY, ABDALLAH Admitting Unavailable KOBEIMACOY, ABDNEDAH Attending Unavailable ROSENDAROBB, REYGHAN Referring Unavailable KOBEISSY, ABDALLAH Attending Unavailable KOBEISSY, ABDALLAH Referring Unavailable ROSENDALE, REYGHAN Attending Unavailable ROSENDAROBB, REYGHAN Attending Unavailable Silvano Reyez Unavailable HEMEMIKE ., DR MATA Admitting Unavailable HEMEYER ., DR MATA Attending Unavailable HEMEYER ., DR MATA Primary Care Unavailable HEMEYER ., DR MATA Consulting Unavailable MISC, DR HELLER Admitting Unavailable MISC, DR HELLER Attending Unavailable HEMEYER ., DR MATA Primary Care Unavailable MISC, DR HELLER Consulting Unavailable HEMEYER ., DR MATA Admitting Unavailable HEMEYER ., DR MATA Attending Unavailable HEMEYER ., DR MATA Primary Care Unavailable HEMEYER ., DR MATA Consulting Unavailable HEMEYER ., DR MATA Admitting Unavailable HEMEYER ., DR MATA Attending Unavailable HEMEYER ., DR MATA Primary Care Unavailable HEMEYER ., DR MATA Consulting Unavailable HEMEYER ., DR MATA Admitting Unavailable HEMEYER ., DR MATA Attending Unavailable HEMEYER ., DR MATA Primary Care Unavailable HEMEYER ., DR MATA Consulting Unavailable MISC, DR HELLER Admitting Unavailable MISC, DR HELLER Attending Unavailable HEMEYER ., DR MATA Primary Care Unavailable MISC, DR HELLER Consulting Unavailable MISC, DR HELLER Admitting Unavailable MISC, DR HELLER Attending Unavailable HEMEYER ., DR MATA Primary Care Unavailable MISC, DR HELLER Admitting Unavailable MISC, DR HELLER Attending Unavailable DITTRemington, JAYA Primary Care Unavailable MISC, DR HELLER Consulting Unavailable DARA CEDILLO Consulting Unavailable MISC, DR HELLER Admitting Unavailable MISC, DR HELLER Attending Unavailable HEMEYER ., DR MATA Primary Care Unavailable MISC, DR HELLER Consulting Unavailable HEMEYER ., DR MATA Admitting Unavailable HEMEYER ., DR MATA Attending Unavailable HEMEYER ., DR MATA Primary Care Unavailable HEMEYER ., DR MATA Consulting Unavailable HOY, COLBY Admitting Unavailable HOY, COLBY Attending Unavailable HOY, COLBY Primary Care Unavailable HOY, COLBY Consulting Unavailable HEMEYER ., DR MATA Admitting Unavailable HEMEYER ., DR MATA Attending Unavailable HEMEYER ., DR MATA Primary Care Unavailable HEMEYER ., DR MATA Consulting Unavailable HEMEYER ., DR MATA Admteddy Unavailable HEMEYER ., DR MATA Attending Unavailable HEMEYER ., DR MATA Primary Care Unavailable HEMEYER ., DR MATA Consulting Unavailable HEMEYER ., DR MATA Admteddy Unavailable HEMEYER ., DR MATA Attending Unavailable HEMEYER ., DR MATA Primary Care Unavailable HEMEYER ., DR MATA Consulting Unavailable Azael Griffin Consulting Unavailable HEMEYER ., DR MATA Admteddy Unavailable HEMEYER ., DR MATA Attending Unavailable HEMEYER ., DR MATA Primary Care Unavailable HEMEYER ., DR MATA Consulting Unavailable MISC, DR HELLER Admitting Unavailable MISC, DR HELLER Attending Unavailable HEMEYER ., DR MATA Primary Care Unavailable MISC, DR HELLER Consulting Unavailable DARA SAVAGE Consulting Unavailable MISC, DR HELLER Admitting Unavailable MISC, DR HELLER Attending Unavailable JAYA PARIKH Primary Care Unavailable JAYA PARIKH Consulting Unavailable HEMEYER ., DR MATA Primary Care Unavailable DIAB ., JAMIL Admitting Unavailable DIAB ., JAMIL Attending Unavailable DIAB ., JAMIL Consulting Unavailable MISC, DR HELLER Admitting Unavailable MISC, DR HELLER Attending Unavailable HEMEYER ., DR MATA Primary Care Unavailable [place], DR DARA Ledezma Consulting Unavailable MISC, DR HELLER Consulting Unavailable HEMEYER ., DR MATA Admteddy Unavailable HEMEYER ., DR MATA Attending Unavailable HEMEYER ., DR MATA Primary Care Unavailable HEMEYER ., DR MATA Consulting Unavailable MISC, DR HELLER Admitting Unavailable MISC, DR HELLER Attending Unavailable HEMEYER ., EDLETICIA Primary Care Unavailable MISC, DR HELLER Consulting Unavailable HEMEYER ., DR MATA Admitting Unavailable HEMEYER ., DR MATA Attending Unavailable HEMEYER ., EDLETICIA Primary Care Unavailable HEMEYER ., DR MATA Consulting Unavailable MISC, DR HELLER Admitting Unavailable MISC, DR HELLER Attending Unavailable HEMEYER ., EDLETICIA Primary Care Unavailable DIJAYA ROBERTS Consulting Unavailable MISC, DR HELLER Admitting Unavailable MISC, DR HELLER Attending Unavailable HEMEYER ., EDLETICIA Primary Care Unavailable DIJAYA ROBERTS Consulting Unavailable MISC, DR HELLER Admitting Unavailable MISC, DR HELLER Attending Unavailable HEMEYER ., DR MATA Primary Care Unavailable MISC, DR HELLER Consulting Unavailable HEMEYER ., DR MATA Admitting Unavailable HEMEYER ., DR MATA Attending Unavailable HEMEYER ., DR MATA Primary Care Unavailable HEMEYER ., DR MATA Consulting Unavailable LEN ., DR HUFF Admitting Unavailable LEN ., DR HUFF Attending Unavailable HEMEYER ., EDLETICIA Primary Care Unavailable LEN ., DR HUFF Consulting Unavailable HEMEYER ., DR MATA Admteddy Unavailable HEMEYER ., DR MATA Attending Unavailable HEMEYER ., EDLETICIA Primary Care Unavailable MISC, DR HELLER Admitting Unavailable MISC, DR HELLER Attending Unavailable HEMEYER ., DR MATA Primary Care Unavailable MISC, DR HELLER Consulting Unavailable COLBY AUGUSTIN Admitting Unavailable COLBY AUGUSTIN Attending Unavailable COLBY AUGUSTIN Primary Care Unavailable COLBY AUGUSTIN Consulting Unavailable KATI JAYA Primary Care Unavailable TUCKER, DR MARIANNE Garcia Admitting Unavailabl e REINECK, DR MARIANNE Garcia Attending Unavailabl e REINECK, DR MARIANNE Garcia Consulting Unavailabl e MISC, DR HELLER Admitting Unavailable MISC, DR HELLER Attending Unavailable HOY, COLBY Primary Care Unavailable MISC, DR HELLER Consulting Unavailable Colby Augustin MD Primary Care Provider Jose Luis Hernandez Attending Unavailab le Jose Luis Hernandez Admitting Unavailab le NON STAFF Primary Care Unavailable Provider, Ordering Unavailable Analia Holliday Unavailable DAVID Holliday Primary Care Provider Kaprobb, KIT [facility] Analia Attending Provider [phone] Kaple ANALYSIS MGR, Analia M Primary Care Provider Kaple ANALYSIS MGR, Analia M Primary Care Provider SEEMA DAVIS Attending Unavailable SEEMA DAVIS Admitting Unavailable KAPLE, ANALIA M Primary Care Unavailable DARA BUTLER Referring Unavailable HOY, COLBY M Primary Care Unavailable HOY, COLBY M Primary Care Unavailable DARA BUTLER Referring Unavailable ELIF HESS Attending Unavailable SINAN, KHALED Referring Unavailable KAPLE, ANALIA M Primary Care Unavailable SEEMA DAVIS Referring Unavailable KAPLE, ANALIA M Primary Care Unavailable VIKTORIA CAUSEY Referring Unavailable KAPLE, ANALIA M Primary Care Unavailable HOY, COLBY M Primary Care Unavailable FREDNAE Referring Unavailable HOY, COLBY M Primary Care Unavailable KAPLE, ANALIA M Primary Care Unavailable SEEMA DAVIS Attending Unavailable SEEMA DAVIS Referring Unavailable HOY, COLBY M Primary Care Unavailable DARA BUTLER JR Attending Unavailable KAPLE, ANALIA M Primary Care Unavailable SINAN, KHALED Attending Unavailable KAPLE, ANALIA M Primary Care Unavailable SINAN, KHALED Referring Unavailable KAPLE, ANALIA M Primary Care Unavailable DARA BUTLER JR Attending Unavailable SEEMA DAVIS Referring Unavailable RUSHINGSEDRICK Attending Unavailable KAPLE, ANALIA M Primary Care Unavailable KAPLE, ANALIA M Primary Care Unavailable RUSHING, SEDRICK Referring Unavailable KAPLE, ANALIA M Referring Unavailable ARIELLA MCCOY Attending Unavailable KAPLE, ANALIA M Primary Care Unavailable DARA BUTLER JR Referring Unavailable KAPLE, ANALIA M Primary Care Unavailable HOY, COLBY M Primary Care Unavailable HOY, COLBY M Primary Care Unavailable HOY, COLBY M Primary Care Unavailable NAE IBARRA Referring Unavailable DARA BUTLER JR Attending Unavailable HOY, COLBY M Primary Care Unavailable DARA BUTLER JR Referring Unavailable DO Ana Bolton Attending Provider [phone] Ana Bolton Admitting Unavailable Ana Botlon Attending Unavailable Kaple, Analia Admitting Unavailable Kaple, Analia Primary Care Unavailable Analia Holliday Attending Unavailable Jose Luis Hernandez Attending Unavailab le NON STAFF Primary Care Unavailable Jose Luis Hernandez Admitting Unavailab le Allergies Allergy Classification Reported Allergen(s) Allergy Type Date of Onset Reaction(s) Facility Nitroimidazoles (antibiotic) (1 source) metroNIDAZOLE Drug Allergy 1 Mental Status Change, Diarrhea, GI Upset, Hives, Other: See Comments, Rash, Shortness of Breath, Unknown, Vomiting [facility] (20 sources) metroNIDAZOLE; Translations: [METRONIDAZOLE] Drug Allergy 1 Mental Status Change, Diarrhea, GI Upset, Hives, Other: See Comments, Rash, Shortness of Breath, Unknown, Vomiting [facility] (1 source) metroNIDAZOLE Drug Allergy 3 [facility] Repository (8 sources) Vancomycin Drug Allergy Unknown [employer] Other (1 source) Vancomycin Drug Allergy 4 [facility] Repository Medications Current Medications Medication Drug Class(es) Dates Sig (Normalized) Sig (Original) amitriptyline hydrochloride 25 mg oral tablet (16 sources) Tricyclic Antidepressant Start: 12-28-2023 End: 03-27-2024 take 1 tablet by mouth once daily at bedtime amitriptyline (ELAVIL) 25 mg tablet Take 1 tablet by mouth daily at bedtime. 30 tablet 2 12/28/2023 03/27/2024 Active Start: 05-22-2023 End: 11-15-2023 take 1 tablet by mouth once daily at bedtime amitriptyline (ELAVIL) 25 mg tablet Take 1 tablet by mouth daily at bedtime. 30 tablet 0 05/22/2023 11/15/2023 Discontinued (Discontinued by Patient) Comment on above: Take 1 tablet by joel th daily at bedtime. cholecalciferol 0.05 mg oral capsule (3 sources) Vitamin D Start: 11-29-19 take 1 capsule by mouth once daily Cholecalciferol (Vitamin D3) Active 2000 UNIT PO Daily November 29, 2023 12:00am FreeTextSi capsule Orally Once a day; Note: Source Status: Start; Refills: 4; Provider: Miya Moise Start: 06-11-2023 take 1 capsule by mo [facility] every twenty-four hours Vitamin D3 50 MCG (1999 UT) 1 capsule Orally Once a day for 30 days May, Active cyclobenzaprine hydrochloride 10 mg oral tablet (3 sources) Muscle Relaxant Start: 10-31-2020 take 10 mg by mouth three times daily Cyclobenzaprine Active 10 MG PO Three times daily October 31, 2020 12:00am dicyclomine hydrochloride 10 mg oral capsule (20 sources) Anticholinergic Start: 11-29-2023 take 1 capsule by mouth three times daily as needed Dicyclomine Active 10 MG PO Three times daily November 29, 2023 12:00am FreeTextSig: TAKE 1 CAPSULE BY MOUTH 3 TIMES A DAY NEEDED; Note: Source Status: Taking; Refills: 3; Qty: 90 Capsule; Provider: Dereje Schaefer ( ) Start: 11-22-2022 End: 02-06-2023 take 1 capsule by mouth every eight hours as needed dicyclomine (BENTYL) 10 mg capsule Take 10 mg by mouth three times daily as needed. 0 11/22/2022 02/06/2023 Discontinued Start: 03-15-2022 End: 04-14-2022 take 1 tablet by mouth every eight hours dicyclomine (BENTYL) 20 mg tablet Take 1 tablet by mouth q 8 HR. 0 03/15/2022 Active Comment on above: Take 10 mg by mouth three times daily as needed. Take 1 tablet by [facility] q 8 HR. escitalopram 10 mg oral tablet (20 sources) Serotonin Reuptake Inhibitor Start: take 1 tablet by mouth once daily Escitalopram Oxalate Active 5 MG PO Daily November 29, 2023 11:36am FreeText[employer] tablet Orally Once a day; Note: Source Status: Taking; Provider: Miya Helms ( ) Start: 11-29-2023 End: 11-29-2023 take 1 tablet by mouth once daily Escitalopram Oxalate Discontinued 10 MG PO Daily November 29, 2023 12:00am November 29, 2023 11:36am FreeTextSi tablet Orally Once a day; Note: Source Status: Taking; Provider: Miya Helms ( ) take 5 mg by mouth once daily es citalopram oxalate (LEXAPRO) 10 mg tablet Take 5 mg by mouth once daily. 0 Active take 1 tablet by joel th once daily escitalopram oxalate (LEXAPRO) 10 mg tablet Take 10 mg by mouth once daily. 0 Active Comment on above: Take 10 mg by mouth once daily. fidaxomicin 200 mg oral tablet (8 sources) Macrolide Antibacterial Start: 03-27-2023 take 1 tablet by mouth every twelve hours Dificid 200 MG 1 tablet Orally Twice a day for 10 days Mar, Active take 1 tablet by mouth every twe lve hours Dificid 200 MG 1 tablet Orally Twice a day PT PICKS THE SCRIPT TODAY Active hydrOXYzine hydrochloride 25 mg oral tablet (3 sources) Antihistamine Start: 10-31-2020 take 25 mg by mouth every six hours Hydroxyzine Hcl Active 25 MG PO Q6H October 31, 2020 12:00am ondansetron 4 mg oral tablet (20 sources) Serotonin-3 Receptor Antagonist Start: 09-01-2022 ondansetron (ZOFRAN) 4 mg tablet Take 4 mg by mouth as needed. 0 09/01/2022 Active Comment on above: Take 4 mg by mouth a s needed. pantoprazole 40 mg delayed release oral tablet (3 sources) Proton Pump Inhibitor Start: 01-22-2024 take 1 tablet by mouth once daily pantoprazole DR (PROTONIX) 40 mg tablet TAKE 1 TABLET BY MOUTH EVERY DAY 90 tablet 1 01/22/2024 Active Start: 12-28-2023 take 1 tablet by joel th once daily pantoprazole DR (PROTONIX) 40 mg tablet Take 1 tablet by mouth once daily. 30 tablet 2 12/28/2023 Active predniSONE 20 mg oral tablet (8 sources) Start: 04-04-2023 End: 04-14-2023 take 1 tablet by mouth once daily predniSONE (DELTASONE) 20 mg tablet Take 1 tablet by mouth once daily for 10 days. 10 tablet 0 04/04/2023 04/14/2023 Active Start: 03-13-2023 End: 03-27-2023 take 1 tablet by mouth once daily predniSONE (DELTASONE) 20 mg tablet Take 1 tablet by mouth once daily for 14 days. 14 tablet 0 03/13/2023 03/27/2023 Active Start: 10-31-2020 End: 11-29-2023 take 50 mg by mouth once daily at mealtime Prednisone Discontinued 50 MG PO Daily 11 24October 31, 2020 12:00am November 29, 2023 11:18am administer with food or milk Comment on above: Take 1 tablet by joel once daily for 14 days. Take 1 tablet by joel once daily for 10 days. Completed/Discontinued Medications Medication Drug Class(es) Dates Sig (Normalized) Sig (Original) amylase 282743 unt / lipase 12089 unt / protease 38672 unt delayed release oral capsule (16 sources) Start: 06-06-2023 End: 10-22-2023 take 2 capsules by mouth twice daily at mealtime cvcati-hstxyeuj-pdp lase (CREON) 24,000-76,000 -120,000 unit delayed release capsule Take 2 capsules by mouth two times a day with meals. 120 capsule 0 06/06/2023 10/22/2023 Discontinued Start: 02-06-2023 End: 05-22-2023 take 1 capsule by mouth three times daily at mealtime rffvfb-nlquzsxq-kzdfejj (ZENPEP) 40,000-126,000- 168,000 unit delayed release capsule Indications: Generalized abdominal pain , Chronic pancreatitis, unspecified pancreatitis type (HCC) , Intestinal malabsorption, unspecified type Take 1 capsule by mouth three times daily with meals. 90 capsule 2 02/06/2023 05/22/2023 Discontinued Comment on above: Take 1 capsule by mo [facility] three times daily with meals. Take 2 capsules by [facility] two times a day with meals. chlordiazePOXIDE hydrochloride 5 mg / clidinium bromide 2.5 mg oral capsule (8 sources) Anticholinergic, Benzodiazepine Start: 023 End: 023 take 1 capsule by mouth three times daily at mealtime, then take 5 capsules by mouth once chlordiazePOXIDE-cli dinium (LIBRAX) 5-2.5 mg per capsule TAKE 1 CAPSULE BY MOUTH THREE TIMES DAILY WITH MEALS 90 capsule 1 05/01/2023 05/22/2023 Discontinued Comment on above: Take 1 capsule by [facility] three times daily with meals. TAKE 1 CAPSULE BY [facility] THREE TIMES DAILY WITH MEALS diclofenac sodium 50 mg delayed release oral tablet (3 sources) Nonsteroidal Anti-inflammatory Drug Start: End: take 50 mg by mouth every twelve hours Diclofenac Sodium Discontinued 50 MG PO Q12H October 31, 2020 12:00am November 29, 2023 11:18am ergocalciferol 1.25 mg oral capsule (10 sources) Provitamin D2 Compound Start: End: ergocalciferol 50,000 unit capsule (VITAMIN D2, DRISDOL) Indications: Vitamin D deficiency (take by mouth with food twice a week, ONE CAPSULE ON SUNDAY AND ONE ON SUNDAY) FOR A TOTAL OF 8 WEEKS. 16 capsule 0 12/14/2022 05/22/2023 Discontinued Comment on above: (take by mouth with food twice a week, ONE CAPSULE ON SUNDAY AND ONE ON SUNDAY) FOR A TOTAL OF 8 WEEKS. 12 hr hyoscyamine sulfate 0.375 mg extended release oral tablet (5 sources) Start: End: take 1 tablet by mouth twice daily hyoscyamine SR (LEVBID) 0.375 mg 12 hr tablet Take 1 tablet by mouth two times a day. 60 tablet 2 12/13/2023 12/28/2023 Discontinued Start: 02-06-2023 End: 05-07-2023 take 1 tablet by mouth twice daily hyoscyamine SR (LEVBID) 0.375 mg 12 hr tablet Indications: Generalized abdominal pain , Chronic pancreatitis, unspecified pancreatitis type (HCC) , Intestinal malabsorption, unspecified type Take 1 tablet by mouth twice daily. 60 tablet 2 02/06/2023 05/07/2023 Active Comment on above: Take 1 tablet by [facility] twice daily. iv contrast (will be provided with radiology test) (2 sources) Start: 3 End: 3 inject 1 dose intravenously once iv contrast (will be provided with radiology test) Indications: Generalized abdominal pain , RUQ pain , Chronic recurrent pancreatitis (HCC) CTA ABD/PEL - No IV access, insert saline lock prior to the sedation, infusion, injection for imaging exam. Discontinue saline lock post exam. If Pt. has a central line or IVAD, may access for administration according to line specific nursing protocol. Once exam is complete flush line and de-access according to line specific nursing protocol in the CT contrast administration guidelines link. 1 Each 0 06/13/2023 06/14/2023 Start: 03-16-2023 End: 03-17-2023 iv contrast (will be provide d with radiology test) MRI ABDOMEN Inject, intravenously, once for 1 dose. No IV access, insert saline lock prior to the beginning of sedation, infusion, injection of imaging exam. Discontinue saline lock post exam. If Pt. has a central line or IVAD, may access for administration according to line specific nursing protocol. Once exam is complete flush line and de-access according to line specific nursing protocol in the MR contrast administration guidelines link. 1 Each 0 03/16/2023 03/17/2023 Active Comment on above: MRI ABDOMEN Inject, intravenously, once for 1 dose. No IV access, insert saline lock prior to the beginning of sedation, infusion, injection of imaging exam. Discontinue saline lock post exam. If Pt. has a central line or IVAD, may access for administration according to line specific nursing protocol. Once exam is complete flush line and de-access according to line specific nursing protocol in the MR contrast administration guidelines link. CTA ABD/PEL - No IV access, insert saline lock prior to the sedation, infusion, injection for imaging exam. Discontinue saline lock post exam. If Pt. has a central line or IVAD, may access for administration according to line specific nursing protocol. Once exam is complete flush line and de-access according to line specific nursing protocol in the CT contrast administration guidelines link. lidocaine 0.05 mg/mg medicated patch (3 sources) Antiarrhythmic, Amide Local Anesthetic Start: 11-01-19 End: 11-29-19 24 apply 1 dose topically once daily Lidocaine Discontinued 1 PATCH TOPICAL Daily October 31, 2020 12:00am November 29, 2023 11:18am leave on most painful area for up to 12 hrs sucralfate 1000 mg oral tablet (2 sources) Aluminum Complex Start: 12-24-19 End: 12-28-19 24 take 1 tablet by mouth three times daily sucralfate (CARAFATE) 1 gram tablet Take 1 tablet by mouth three times a day. 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] Onset: 4 11-15-2023 Episodic Aortic; peripheral; and visceral artery aneurysms (1 source) Carotid artery aneurysm; Translations: [Aneurysm of carotid artery] 12-02-2020 Chronic Biliary tract disease (1 source) Cholecystitis, unspecified; Translations: [Cholecystitis] Onset: 4 Episodic Cardiac dysrhythmias (1 source) Supraventricular tachycardia; Translations: [Other supraventricular tachycardia (HCC)] 10-22-2023 Chronic Cardiac dysrhythmias (12 sources) Palpitations; Translations: [Palpitations] Onset: 4 10-22-2023 Episodic Esophageal disorders (4 sources) Gastroesophageal reflux disease; Translations: [Gastro-esophageal reflux disease without esophagitis] 11-29-2023 Chronic Genitourinary symptoms and ill-defined conditions (1 source) Personal history of urinary (tract) infections; Translations: [PERS HX URINARY TRACT INFECTIONS] Onset: 3 Episodic Intestinal infection (20 sources) Clostridial enteric disease; 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 due to Clostridium difficile, not specified as recurrent] Onset: 2 Resolved: 2 Episodic Malaise and fatigue (20 sources) Chronic fatigue, unspecified; Translations: [Fatigue] Onset: 2 Chronic Menstrual disorders (1 source) Irregular menstruation, unspecified; Translations: [IRREGULAR MENSTRUATION UNSPECIFIED] Onset: 3 Chronic Nausea and vomiting (6 sources) Nausea; Translations: [Nausea] Onset: 3 Episodic Nutritional deficiencies (6 sources) Vitamin D deficiency; Translations: [Vitamin D deficiency, unspecified] Chronic Other aftercare (1 source) Surgical follow-up; Translations: [Encounter for follow-up examination after completed treatment for conditions other than malignant neoplasm] 12-05-2023 Episodic Other connective tissue disease (3 sources) Pain in upper limb; Translations: [Pain in arm, unspecified] 10-31-2020 Episodic Other diseases of kidney and ureters (1 source) Cyst of kidney, acquired; Translations: [CYST OF KIDNEY ACQUIRED] Onset: 3 Episodic Other disorders of stomach and duodenum (1 source) Disorder of function of stomach; Translations: [Disease of stomach and duodenum, unspecified] 12-28-2023 Episodic Other gastrointestinal disorders (16 sources) Irritable bowel syndrome with diarrhea; Translations: [Irritable bowel syndrome with diarrhea] 05-22-2023 Chronic Other gastrointestinal disorders (9 sources) Irritable bowel syndrome with diarrhea; Translations: [Irritable bowel syndrome] Onset: 3 Chronic Other gastrointestinal disorders (1 source) Intestinal malabsorption; Translations: [Intestinal malabsorption, unspecified] 02-06-2023 Chronic Other gastrointestinal disorders (1 source) Intestinal malabsorption, unspecified; Translations: [Intestinal malabsorption, unspecified type] Onset: 3 Chronic Other gastrointestinal disorders (3 sources) Diarrhea; Translations: [Diarrhea, unspecified] Episodic Other gastrointestinal disorders (4 sources) Personal history of other diseases of the digestive system; Translations: [PERSONAL HX OTH DZ DIGESTIVE SYSTEM] Onset: 3 Episodic Other gastrointestinal disorders (3 sources) History of pancreatitis; Translations: [Personal history of other diseases of the digestive system] 12-02-2020 Episodic Other infections; including parasitic (2 sources) Personal history of other infectious and parasitic diseases; Translations: [Personal history of other infectious and parasitic diseases] Onset: 3 06-06-2023 Episodic Other infections; including parasitic (1 source) History of Clostridium difficile intestinal infection; Translations: [Personal history of other infectious and parasitic diseases] 05-22-2023 Episodic Other nutritional; endocrine; and metabolic disorders (5 sources) Underweight; Translations: [UNDERWEIGHT] Onset: 3 Episodic Other nutritional; endocrine; and metabolic disorders (4 sources) Abnormal weight loss; Translations: [ABNORMAL WEIGHT LOSS] Onset: 3 Episodic Other screening for suspected conditions (not mental disorders or infectious disease) (20 sources) Radiology result abnormal; Translations: [Abnormal findings on diagnostic imaging of other specified body structures] Onset: 3 12-08-2022 Chronic Other screening for suspected conditions (not mental disorders or infectious disease) (10 sources) Abnormal findings on diagnostic imaging of other abdominal regions, including retroperitoneum; Translations: [Other specified abnormal findings of blood chemistry] Onset: 3 Episodic Other skin disorders (1 source) Nonscarring hair loss, unspecified; Translations: [NONSCARRING HAIR LOSS UNSPECIFIED] Onset: 3 Episodic Pancreatic disorders (not diabetes) (12 sources) Chronic pancreatitis; Translations: [Other chronic pancreatitis] Onset: 3 02-06-2023 Chronic Pancreatic disorders (not diabetes) (1 source) Acute pancreatitis without necrosis or infection, unspecified Episodic Residual codes; unclassified (1 source) FH: Cardiovascular disease; Translations: [Family history of ischemic heart disease and other diseases of the circulatory system] 12-02-2020 Episodic Unclassified (1 source) Other supraventricular tachycardia (HCC); Translations: [Other supraventricular tachycardia (HCC)] Onset: 4 Unclassified (1 source) Encounter for general adult medical examination without abnormal findings; Translations: [Encounter for general adult medical examination without abnormal findings] Onset: 3 Past or Other Problems Problem Classification Problem Date Documented Da te Episodic/Chronic Allergic reactions (20 sources) Urticaria; Translations: [Urticaria, unspecified] Onset: 12-09-2021 12-09-2021 Episodic Bacterial infection; unspecified site (2 sources) Other bacterial infections of unspecified site; Translations: [Other bacterial infections of unspecified site] Onset: 08-02-2022 Episodic Fever of unknown origin (4 sources) Fever, unspecified; Translations: [FEVER UNSPECIFIED] Onset: 07-27-2022 Episodic Fluid and electrolyte disorders (1 source) Dehydration; Translations: [DEHYDRATION] Onset: 08-24-2022 Episodic Immunizations and screening for infectious disease (2 sources) Contact with and (suspected) exposure to other viral communicable diseases; Translations: [Encounter for screening for human papillomavirus (HPV)] Onset: 05-05-2021 Resolved: 05-05-2021 Episodic Malaise and fatigue (4 sources) Weakness; Translations: [WEAKNESS] Onset: 08-22-2022 Episodic Noninfectious gastroenteritis (4 sources) Noninfective gastroenteritis and colitis, unspecified; Translations: [NONINFECTIVE GE AND COLITIS UNS] Onset: 02-01-2022 Episodic Other connective tissue disease (20 sources) Pain of bilateral upper limbs; Translations: [Pain in right arm] Onset: 12-08-2022 12-08-2022 Episodic Other gastrointestinal disorders (10 sources) Diarrhea, unspecified; Translations: [Diarrhea, unspecified] Onset: 09-20-2022 Episodic Other infections; including parasitic (13 sources) Disorder due to infection; Translations: [Unspecified infectious disease] Onset: 12-09-2021 12-09-2021 Episodic Other infections; including parasitic (16 sources) Recurrent infectious disease; Translations: [Unspecified infectious disease] Onset: 12-09-2021 12-09-2021 Episodic Other non-traumatic joint disorders (20 sources) Pain in left knee; Translations: [Pain in joint, lower leg] Onset: 12-09-2021 12-09-2021 Episodic Other non-traumatic joint disorders (20 sources) Chronic pain of left upper limb; Translations: [Pain in left shoulder] Onset: 12-09-2021 12-09-2021 Episodic Spondylosis; intervertebral disc disorders; other back problems (20 sources) Neck pain; Translations: [Cervicalgia] Onset: 12-09-2021 12-09-2021 Episodic Results Test Name Value Interpretation Reference Range Facility [facility] 01-01-2024 L Specimen: [id number] Received: 01/02/24 Status: TRUDY Valle Num: [id number] Spec Type: Surgical Subm Dr: Ana Bolton DO Tissues: A Appendix - Other than Incidental (APPENDIX) Procedures: HE/2, Gross/Micro L3 Age/ Patient Sex Location Account Attending Physician Rosa Alonzo N 23/F [facility] [id number] Ana [facility] DO SPEC NUM: [id number] RECD: 01/02/24 STATUS: [facility] NUM: [id number] RAQUEL: 01/01/[address]: Ana Bolton DO ENTERED: 01/02/[address]: Sg,Lab SPEC TYPE: Surgical DEPT: AMY LOMAS ORDERED: HE/2, Gross/Micro L3 ORDERED: , Gross/Micro L3 Pathological Diagnosis Appendix, appendectomy: Acute appendicitis. Clinical Information Stomach pain, appendicitis. Gross Description Received in formalin labeled with the patient's name, date of and appendix is a 9.1 cm in length by 0.6 to 0.8 cm in diameter intact vermiform appendix covered by smooth and glistening cano-pink serosa. The proximal margin contains a staple line which is removed and the adjacent tissue is inked black. The specimen is serially sectioned and revealing a dilated lumen filled with cano semisolid fecal material and lined by unremarkable cano mucosa. The appendiceal wall measures 0.1 cm in thickness. No polyps, discrete masses or areas of perforation are identified. [employer] sections are submitted in A1 (base and midportion)?A2 (entire distal tip). CPT Codes 74888 Specimen: [id number] Received: 01/02/24 Status: TRUDY Valle Num: [id number] Spec Type: Surgical Subm Dr: Ana Bolton,DO Tissues: A Appendix - Other than Incidental (APPENDIX) Procedures: , Gross/Micro L3 Patient: Rosa Alonzo [id number] (Continued) Signed (signature on file) Sourav Cabello MD 01/03/24 1808 Normal [facility] 12-28-2023 CNOV Office Visit ([facility] ) ----- ROSA ALONZO Roland ([id number]) 2000 F Date Time Provider Department 12/28/23 3:00 PM DARA BUTLER JR [facility] During your visit today, we recorded the following information about you: Dara Butler Jr., 12/28/2023 3:30 PM Signed No chief complaint on file. HPI: Rosa Alonzo, 23 year old female, followup for upper abd pain and dyspepsia. She has undergone an extensive workup into etiology of her abd pain without clear etiology. She reports upper abd pain, radiating to back, occasional nausea. Around 10 yrs ago she had episode of pancreatitis. Since her pain has felt similar, workup was pursued. However, imaging and labs have been negative for pancreatitis including most recent EUS without evidence of pancreatitis. Cholecystectomy was performed given her ongoing symptoms which provided improvement for about a week but symptoms then recurred. She has failed several medications throughout including dicyclomine, Levbid, omeprazole, Carafate, Creon, Zenpep. Extensive imaging with MRI, CT scan, US, HIDA have been unremarkable except for possible suggestion of MALS which she is following up with a specialist. 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 Stool studies have been negative for c.diff recurrence. Last EGD and colonoscopy were two years ago. EUS done in August. Past GI workup 11/21/23 cholecystectomy was done with path as follows: Gallbladder, cholecystectomy: -Gallbladder with no diagnostic abnormality. 09/06/[address] Menon There was no sign of significant pathology in the main pancreatic duct. There was no evidence of significant pathology in the left lobe of the liver and in the right lobe of the liver. A polyp was found in the gallbladder body. 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 No specimens collected. 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 Menon 22 y/o female with chronic abd pain. Etiology is not entirely clear. She has a history of idiopathic pancreatitis but workup has not demonstrated acute or chronic pancreatitis. She is seeing pancreatic biliary specialist in the coming weeks for an opinion. C.Diff testing negative. IBS-D remains an issue, start amitriptyline. Consider referral to [facility] if symptoms fail to improve. Although the gallbladder workup is negative I suspect that she has gallbladder disease specially with her father had cholecystectomy at young age, 30 years old. Another diagnosis should be entertained is MALS. The exact etiology of her pancreatitis at age 14 is not clear. No evidence of pancreas divisum on MRCP done 03/2023. No evidence for gallstones or sludge.. Biliary tree is not dilated. IgG4 is normal. Will schedule the patient for EUS in the next month or so. 05/22/23 Last OV notes per Dr. Butler as follows Rosa Alonzo, 22 year old female, for followup. She continues to have chronic generalized abd pain with associated nausea and diarrhea. Pain is around 7 everyday but worsens and evaluated in ER. Workup has been nondiagnostic. Food tends to make symptoms worse. Around 10 yrs ago she had episode of pancreatitis without clear etiology. Since she reports a couple episodes. She feels this is etiology for her chronic abd pain. MRI, CT scan, US, HIDA, labs have failed to demonstrate chronic pancreatitis findings. Workup for autoimmune pancreatitis was negative. Triglycerides are normal. She denies EtOH use. No family history of pancreatitis. Around two years ago she had c.diff after course of antibiotics and required two fecal transplants. Stool was negative for c.diff in Mar and Apr. History of IBS-D, limited benefit with dicyclomine. Last EGD was 2 yrs ago, last colonoscopy was 8 months ago in [place]. Start amitriptyline Keep appt with Dr. Menon for pancreatic / biliary clinic 04/14/23 CT/CT abdomen pelvis w con 1. Ill-defined inflammatory changes in the pelvis centered around the rectum which appears to have moderate wall thickening. Findings are suspect for distal colitis, however, the differential also includes pelvic inflammatory disease. 2. No other potentially acute intra-abdominal abnormality demonstrated. 3. Prominent pelvic vasculature which could be reactive or physiologic versus pelvic congestion syndrome secondary to narrowing of the left renal vein as it passes between the SMA and aorta. 04/13/23 MRI ABDOMEN WO/W IVCON No MR findings of acute or chronic pancreatitis. No pancreatic divisum. 12/01/22 HIDA scan was done at [facility]: Normal study EF 69% US: 10/31/22: (care everywhere) Liver normal Gallbaldder appears normal with no stones or sludge. No gallblad (more content not included)... Normal [facility] Amylase SerPl-cCncon 024 Amylase [Catalytic activity/Vol] 44 U/L Normal 30-104 [facility] Comment on above: Order Comment: Speci men Type: BLOOD SPECIMENOrdering Facility: [facility] Address: [address] [place] [address] Performed By: #### 1 798-8, 1987-, 3040- ####[facility] LABCLIA [id number] [place] [address] [place] Basophils Auto (Bld) [#/Vol] on 12-27-2023 Basophils (Bld) [#/Vol] 0.04 10*3/uL <0.11 [facility] Basophils/100 WBC Auto (Bld) on 12-27-2023 Basophils/100 WBC (Bld) 0.8 % [facility] Blood manual differential co mment interpretation narrativeon 12-27-2023 Manual differential comment Ganga (Bld) [Interp] Auto [facility] CBC W Auto Differential pane l (Bld)on 12-27-2023 Basophils (Bld) [#/Vol] 0.04 10*3/uL Normal <0.11 [facility] Comment on above: Order Comment: Speci men Type: BLOOD SPECIMENOrdering Facility: [facility] Address: [address] [place] [address] Performed By: #### 5 7021-8 ####[facility] LABCLIA [id number] [place] [address] Basophils/100 WBC (Bld) 0.8 % Normal [facility] Comment on above: Order Comment: Speci men Type: BLOOD SPECIMENOrdering Facility: [facility] Address: [address] [place] [address] Performed By: #### 5 7021-8 ####[facility] LABCLIA [id number] [place] [address] Differential cell count method Nom (Bld) Auto Normal [facility] Comment on above: Order Comment: Speci men Type: BLOOD SPECIMENOrdering Facility: [facility] Address: [address] [place] [address] Performed By: #### 5 7021-8 ####[facility] LABCLIA [id number] [place] [address] Eosinophils (Bld) [#/Vol] 0.22 10*3/uL Normal <0.46 [facility] Comment on above: Order Comment: Speci men Type: BLOOD SPECIMENOrdering Facility: [facility] Address: [address] [place] [address] Performed By: #### 5 7021-8 ####[facility] LABCLIA [id number] [place] [address] Eosinophils/100 WBC (Bld) 4.3 % Normal [facility] Comment on above: Order Comment: Speci men Type: BLOOD SPECIMENOrdering Facility: [facility] Address: [address] [place] [address] Performed By: #### 5 7021-8 ####[facility] LABCLIA [id number] [place] [address] Erythrocyte distribution width (RBC) [Ratio] 11.6 % Normal 11.5-15.0 [facility] Comment on above: Order Comment: Speci men Type: BLOOD SPECIMENOrdering Facility: [facility] Address: [address] [place] [address] Performed By: #### 5 7021-8 ####[facility] LABCLIA [id number] [place] [address] Hematocrit (Bld) [Volume fraction] 41.5 % Normal 36.0-46.0 [facility] Comment on above: Order Comment: Speci men Type: BLOOD SPECIMENOrdering Facility: [facility] Address: [address] [place] [address] Performed By: #### 5 7021-8 ####[facility] LABIA [id number] [place] [address] Hemoglobin (Bld) [Mass/Vol] 14.1 g/dL Normal 11.5-15.5 [facility] Comment on above: Order Comment: Speci men Type: BLOOD SPECIMENOrdering Facility: [facility] Address: [address] [place] [address] Performed By: #### 5 7021-8 ####[facility] LABCLIA [id number] [place] [address] Immature granulocytes (Bld) [#/Vol] 10*3/uL Normal <0.10 [facility] Comment on above: Order Comment: Speci men Type: BLOOD SPECIMENOrdering Facility: [facility] Address: [address] [place] [address] Performed By: #### 5 7021-8 ####[facility] LABCLIA [id number] [place] [address] Immature granulocytes/100 WBC (Bld) 0.2 % Normal [facility] Comment on above: Order Comment: Speci men Type: BLOOD SPECIMENOrdering Facility: [facility] Address: [address] [place] [address] Performed By: #### 5 7021-8 ####[facility] LABCLIA [id number] [place] [address] Lymphocytes (Bld) [#/Vol] 2.06 10*3/uL Normal 1.00-4.00 [facility] Comment on above: Order Comment: Speci men Type: BLOOD SPECIMENOrdering Facility: [facility] Address: [address] [place] [address] Performed By: #### 5 7021-8 ####[facility] LABCLIA [id number] [place] [address] Lymphocytes/100 WBC (Bld) 39.8 % Normal [facility] Comment on above: Order Comment: Speci men Type: BLOOD SPECIMENOrdering Facility: [facility] Address: [address] [place] [address] Performed By: #### 5 7021-8 ####[facility] LABCLIA [id number] [place] [address] MCH (RBC) [Entitic mass] 31.5 pg Normal 26.0-34.0 [facility] Comment on above: Order Comment: Speci men Type: BLOOD SPECIMENOrdering Facility: [facility] Address: [address] [place] [address] Performed By: #### 5 7021-8 ####[facility] LABIA [id number] [place] [address] MCHC (RBC) [Mass/Vol] 34.0 g/dL Normal 30.5-36.0 [facility] Comment on above: Order Comment: Speci men Type: BLOOD SPECIMENOrdering Facility: [facility] Address: [address] [place] [address] Performed By: #### 5 7021-8 ####[facility] LABIA [id number] [place] [address] MCV (RBC) [Entitic vol] 92.6 fL Normal 80.0-100.0 [facility] Comment on above: Order Comment: Speci men Type: BLOOD SPECIMENOrdering Facility: [facility] Address: [address] [place] [address] Performed By: #### 5 7021-8 ####[facility] LABCLIA [id number] [place] [address] Monocytes (Bld) [#/Vol] 0.42 10*3/uL Normal <0.87 [facility] Comment on above: Order Comment: Speci men Type: BLOOD SPECIMENOrdering Facility: [facility] Address: [address] [place] [address] Performed By: #### 5 7021-8 ####[facility] LABIA [id number] [place] [address] Monocytes/100 WBC (Bld) 8.1 % Normal [facility] Comment on above: Order Comment: Speci men Type: BLOOD SPECIMENOrdering Facility: [facility] Address: [address] [place] [address] Performed By: #### 5 7021-8 ####[facility] LABCLIA [id number] [place] [address] Neutrophils (Bld) [#/Vol] 2.42 10*3/uL Normal 1.45-7.50 [facility] Comment on above: Order Comment: Speci men Type: BLOOD SPECIMENOrdering Facility: [facility] Address: [address] [place] [address] Performed By: #### 5 7021-8 ####[facility] LABCLIA [id number] [place] [address] Neutrophils/100 WBC (Bld) 46.8 % Normal [facility] Comment on above: Order Comment: Speci men Type: BLOOD SPECIMENOrdering Facility: [facility] Address: [address] [place] [address] Performed By: #### 5 7021-8 ####[facility] LABCLIA [id number] [place] [address] Nucleated RBC (Bld) [#/Vol] 10*3/uL Normal <0.01 [facility] Comment on above: Order Comment: Speci men Type: BLOOD SPECIMENOrdering Facility: [facility] Address: [address] [place] [address] Performed By: #### 5 7021-8 ####[facility] LABCLIA [id number] [place] [address] Nucleated RBC/100 WBC (Bld) [Ratio] 0.0 /100 WBC Normal [facility] Comment on above: Order Comment: Speci men Type: BLOOD SPECIMENOrdering Facility: [facility] Address: [address] [place] [address] Performed By: #### 5 7021-8 ####[facility] LABCLIA [id number] [place] [address] Platelet mean volume (Bld) [Entitic vol] 10.5 fL Normal 9.0-12.7 [facility] Comment on above: Order Comment: Speci men Type: BLOOD SPECIMENOrdering Facility: [facility] Address: [address] [place] [address] Performed By: #### 5 7021-8 ####[facility] LABCLIA [id number] [place] [address] Platelets (Bld) [#/Vol] 179 10*3/uL Normal 150-400 [facility] Comment on above: Order Comment: Speci men Type: BLOOD SPECIMENOrdering Facility: [facility] Address: [address] [place] [address] Performed By: #### 5 7021-8 ####[facility] LABCLIA [id number] [place] [address] RBC (Bld) [#/Vol] 4.48 10*6/uL Normal 3.90-5.20 [facility] Comment on above: Order Comment: Speci men Type: BLOOD SPECIMENOrdering Facility: [facility] Address: [address] [place], [place] [address] Performed By: #### 5 7021-8 ####[facility] LABCLIA [id number] [place] [address] WBC (Bld) [#/Vol] 5.17 10*3/uL Normal 3.70-11.00 [facility] Comment on above: Order Comment: Speci men Type: BLOOD SPECIMENOrdering Facility: [facility] Address: [address] [place] [address] Performed By: #### 5 7021-8 ####[facility] LABCLIA [id number] [place] [address] CRP SerPl-ncon 12-27-2023 CRP [Mass/Vol] mg/L Normal <0.9 [facility] Comment on above: Order Comment: Speci men Type: BLOOD SPECIMENOrdering Facility: [facility] Address: [address] [place] [address] Performed By: #### 1 798-8, 1987-, 3039-3 ####[facility] LABCLIA [id number] [facility] [id number] [address] [place] Comprehensive metabolic 2000 panelon 12-27-2023 Albumin [Mass/Vol] 4.6 g/dL Normal 3.9-4.9 [facility] Comment on above: Order Comment: Speci men Type: BLOOD SPECIMENOrdering Facility: [facility] Address: [address] [place] [address] Performed By: #### 2 4323-8 ####[facility] LABCLIA [id number] [place] [address] ALP [Catalytic activity/Vol] 53 U/L Normal 34-123 [facility] Comment on above: Order Comment: Speci men Type: BLOOD SPECIMENOrdering Facility: [facility] Address: [address] [place] [address] Performed By: #### 2 4323-8 ####[facility] LABCLIA [id number] [place] [address] ALT [Catalytic activity/Vol] 9 U/L Normal 7-38 [facility] Comment on above: Order Comment: Speci men Type: BLOOD SPECIMENOrdering Facility: [facility] Address: [address] [place] [address] Performed By: #### 2 4323-8 ####[facility] LABCLIA [id number] [place] [address] Anion gap [Moles/Vol] 6 mmol/L Low 8-15 [facility] Comment on above: Order Comment: Speci men Type: BLOOD SPECIMENOrdering Facility: [facility] Address: [address] [place] [address] Performed By: #### 2 4323-8 ####[facility] LABCLIA [id number] [place] [address] AST [Catalytic activity/Vol] 14 U/L Normal 13-35 [facility] Comment on above: Order Comment: Speci men Type: BLOOD SPECIMENOrdering Facility: [facility] Address: [address] [place] [address] Performed By: #### 2 4323-8 ####[facility] LABCLIA [id number] [place] [address] Bilirubin [Mass/Vol] 0.5 mg/dL Normal 0.2-1.3 [facility] Comment on above: Order Comment: Speci men Type: BLOOD SPECIMENOrdering Facility: [facility] Address: [address] [place] [address] Performed By: #### 2 4323-8 ####[facility] LABCLIA [id number] [place] [address] Calcium [Mass/Vol] 10.2 mg/dL Normal 8.5-10.2 [facility] Comment on above: Order Comment: Speci men Type: BLOOD SPECIMENOrdering Facility: [facility] Address: [address] [place] [address] Performed By: #### 2 4323-8 ####[facility] LABCLIA [id number] [place] [address] Chloride [Moles/Vol] 103 mmol/L Normal 98-107 [facility] Comment on above: Order Comment: Speci men Type: BLOOD SPECIMENOrdering Facility: [facility] Address: [address] [place] [address] Performed By: #### 2 4323-8 ####[facility] LABCLIA [id number] [place] [address] CO2 [Moles/Vol] 28 mmol/L Normal 22-30 [facility] Comment on above: Order Comment: Speci men Type: BLOOD SPECIMENOrdering Facility: [facility] Address: [address] [place] [address] Performed By: #### 2 4323-8 ####[facility] LABCLIA [id number] [place] [address] Creatinine [Mass/Vol] 0.68 mg/dL Normal 0.58-0.96 [facility] Comment on above: Order Comment: Speci men Type: BLOOD SPECIMENOrdering Facility: [facility] Address: [address] [place] [address] Performed By: #### 2 4323-8 ####[facility] LABCLIA [id number] [place] [address] Creatinine and Glomerular filtration rate.predicted panel (S/P/Bld) 124 mL/min/1.73m??? Normal >=60 [facility] Comment on above: Order Comment: Reilly medel Type: BLOOD SPECIMENOrdering Facility: [facility] Address: [address] [place] [address] Result Comment: Ny mated Glomerular Filtration Rate (eGFR) is calculated using the 2020 CKD-EPI creatinine equation. This equation utilizes serum creatinine, sex, and age as parameters. The creatinine assay has traceable calibration to isotope dilution-mass spectrometry. Refer to KDIGO guidelines for clinical interpretation. In patients with unstable renal function, e.g. those with acute kidney injury, the eGFR may not accurately reflect actual GFR. Performed By: #### 2 4323-8 ####[facility] LABCLIA [id number] [place] [address] Glucose [Mass/Vol] 97 mg/dL Normal 74-99 [facility] Comment on above: Order Comment: Reilly medel Type: BLOOD SPECIMENOrdering Facility: [facility] Address: [address] [place], [place] [id number] Result Comment: The [place] Diabetes Association (ADA) provides guidance for cutoff values for fasting glucose and random glucose. The ADA defines fasting as no caloric intake for at least 8 hours. Fasting plasma glucose results between 100 to 125 mg/dL indicate increased risk for diabetes (prediabetes). Fasting plasma glucose results greater than or equal to 126 mg/dL meet the criteria for diagnosis of diabetes. In the absence of unequivocal hyperglycemia, results should be confirmed by repeat testing. In a patient with classic symptoms of hyperglycemia or hyperglycemic crisis, random plasma glucose results greater than or equal to 200 mg/dL meet the criteria for diagnosis of diabetes. Reference: Standards of Medical Care in Diabetes 2016, [place] Diabetes Association. Diabetes Care. 2016.39(Suppl 1). Performed By: #### 2 4323-8 ####[facility] LABCLIA [id number] [place] [address] Potassium [Moles/Vol] 4.3 mmol/L Normal 3.7-5.1 [facility] Comment on above: Order Comment: Reilly medel Type: BLOOD SPECIMENOrdering Facility: [facility] Address: [address] [place] [address] Performed By: #### 2 4323-8 ####[facility] LABCLIA [id number] [place] [address] Protein [Mass/Vol] 7.2 g/dL Normal 6.3-8.0 [facility] Comment on above: Order Comment: Speci men Type: BLOOD SPECIMENOrdering Facility: [facility] Address: [address] [place] [address] Performed By: #### 2 4323-8 ####[facility] LABCLIA [id number] [place] [address] Sodium [Moles/Vol] 137 mmol/L Normal 136-144 [facility] Comment on above: Order Comment: Speci men Type: BLOOD SPECIMENOrdering Facility: [facility] Address: [address] [place] [address] Performed By: #### 2 4323-8 ####[facility] LABCLIA [id number] [place] [address] Urea nitrogen [Mass/Vol] 13 mg/dL Normal 7-21 [facility] Comment on above: Order Comment: Speci men Type: BLOOD SPECIMENOrdering Facility: [facility] Address: [address] [place] [address] Performed By: #### 2 4323-8 ####[facility] LABCLIA [id number] [place] [address] ESR Westergren method (Bld) [Velocity]on 12-27-2023 ESR (Bld) [Velocity] 12 mm/h Normal 0-20 [facility] Comment on above: Order Comment: Speci men Type: BLOOD SPECIMENOrdering Facility: [facility] Address: [address] [place] [address] Performed By: #### 4 537-7 ####[facility] LABCLIA [id number] [place] [address] [place] Eosinophils/100 WBC Auto (Bl d)on 12-27-2023 Eosinophils/100 WBC (Bld) 4.3 % [facility] Erythrocyte distribution wid th Auto (RBC) [Ratio]on 12-27-2023 Erythrocyte distribution width (RBC) [Ratio] 11.6 % 11.5-15.0 [facility] Hematocrit Auto (Bld) [Volum e fraction]on 12-27-2023 Hematocrit (Bld) [Volume fraction] 41.5 % 36.0-46.0 [facility] Hemoglobin [Mass/volume] in Bloodon 12-27-2023 Hemoglobin (Bld) [Mass/Vol] 14.1 g/dL 11.5-15.5 [facility] Laboratory - Chemistry and C hemistry - challengeon 12-27-2023 Albumin [Mass/Vol] 4.6 g/dL 3.9-4.9 [facility] ALP [Catalytic activity/Vol] 53 U/L 34-123 [facility] ALT [Catalytic activity/Vol] 9 U/L 7-38 [facility] Amylase [Catalytic activity/Vol] 44 U/L 30-104 [facility] AST [Catalytic activity/Vol] 14 U/L 13-35 [facility] Bilirubin [Mass/Vol] 0.5 mg/dL 0.2-1.3 [facility] Calcium [Mass/Vol] 10.2 mg/dL 8.5-10.2 [facility] Chloride [Moles/Vol] 103 mmol/L 98-107 [facility] CO2 [Moles/Vol] 28 mmol/L 22-30 [facility] Creatinine [Mass/Vol] 0.68 mg/dL 0.58-0.96 [facility] Glucose [Mass/Vol] 97 mg/dL 74-99 [facility] Comment on above: The [place] Diabete s Association (ADA) provides guidance for cutoff values for fasting glucose and random glucose. The ADA defines fasting as no caloric intake for at least 8 hours. Fasting plasma glucose results between 100 to 125 mg/dL indicate increased risk for diabetes (prediabetes).Fasting plasma glucose results greater than or equal to 126 mg/dL meet the criteria for diagnosis of diabetes. In the absence of unequivocal hyperglycemia, results should be confirmed by repeat testing. In a patient with classic symptoms of hyperglycemia or hyperglycemic crisis, random plasma glucose results greater than or equal to 200 mg/dL meet the criteria for diagnosis of diabetes.Reference: Standards of Medical Care in Diabetes 2016, [place] Diabetes Association. Diabetes Care. 2016.39(Suppl 1). Lipase [Catalytic activity/Vol] 22 U/L [facility] Potassium [Moles/Vol] 4.3 mmol/L 3.7-5.1 [facility] Sodium [Moles/Vol] 137 mmol/L 136-144 [facility] Urea nitrogen [Mass/Vol] 13 mg/dL 02-09 [facility] Laboratory - Hematology and Cell countson 12-27-2023 Eosinophils (Bld) [#/Vol] 0.22 10*3/uL <0.46 [facility] ESR (Bld) [Velocity] 12 mm/h 0- [facility] Immature granulocytes/100 WBC (Bld) 0.2 % [facility] Leukocytes [#/volume] correc shena for nucleated erythrocytes in Blood by Automated counon 12-27-2023 WBC corrected for nucl RBC Auto (Bld) [#/Vol] 5.17 k/uL 3.70-11.00 [facility] Lipase SerPl-cCncon 12-27-19 24 Lipase [Catalytic activity/Vol] 22 U/L Normal [facility] Comment on above: Order Comment: Speci men Type: BLOOD SPECIMENOrdering Facility: [facility] Address: [address] [place] [address] Performed By: #### 1 798-8, 1987-, 3039-09 ####[facility] LABCLIA [id number] [place] [address] [place] Lymphocytes Auto (Bld) [#/Vo l]on 12-27-2023 Lymphocytes (Bld) [#/Vol] 2.06 10*3/uL 1.00-4.00 [facility] Lymphocytes/100 WBC Auto (Bl d)on 12-27-2023 Lymphocytes/100 WBC (Bld) 39.8 % [facility] MCH Auto (RBC) [Entitic mass ]on 12-27-2023 MCH (RBC) [Entitic mass] 31.5 pg 26.0-34.0 [facility] MCHC Auto (RBC) [Mass/Vol]on 12-27-2023 MCHC (RBC) [Mass/Vol] 34.0 g/dL 30.5-36.0 [facility] MCV Auto (RBC) [Entitic vol] on 12-27-2023 MCV (RBC) [Entitic vol] 92.6 fL 80.0-100.0 [facility] Monocytes Auto (Bld) [#/Vol] on 12-27-2023 Monocytes (Bld) [#/Vol] 0.42 10*3/uL <0.87 [facility] Monocytes/100 WBC Auto (Bld) on 12-27-2023 Monocytes/100 WBC (Bld) 8.1 % [facility] Neutrophils Auto (Bld) [#/Vo l]on 12-27-2023 Neutrophils (Bld) [#/Vol] 2.42 10*3/uL 1.45-7.50 [facility] Neutrophils/100 WBC Auto (Bl d)on 12-27-2023 Neutrophils/100 WBC (Bld) 46.8 % [facility] No Panel Informationon 12-26 C-Reactive Protein, Quantitative <0.3 mg/dL <0.9 [facility] Estimated GFR (CKD-EPI) 124 mL/min/1.73m??? >=60 [facility] Comment on above: Estimated Glomerular Filtration Rate (eGFR) is calculated using the 2020 CKD-EPI creatinine equation. This equation utilizes serum creatinine, sex, and age as parameters. The creatinine assay has traceable calibration to isotope dilution-mass spectrometry. Refer to KDIGO guidelines for clinical interpretation. In patients with unstable renal function, e.g. those with acute kidney injury, the eGFR may not accurately reflect actual GFR. Immature Granulocyte # (Auto) <0.03 k/uL <0.10 [facility] Nucleated RBC Auto (Bld) [#/ Vol]on 12-27-2023 Nucleated RBC (Bld) [#/Vol] 10*3/uL <0.01 [facility] Nucleated erythrocytes [Pres ence] in Blood by Automated counton 12-27-2023 Nucleated RBC Auto Ql (Bld) 0.0 /100{WBC} [facility] Platelet mean volume Auto (B ld) [Entitic vol]on 12-27-2023 Platelet mean volume (Bld) [Entitic vol] 10.5 fL 9.0-12.7 [facility] Platelets Auto (Bld) [#/Vol] on 12-27-2023 Platelets (Bld) [#/Vol] 179 10*3/uL 150-400 [facility] Protein [Mass/volume] in Ser um or Plasmaon 12-27-2023 Protein [Mass/Vol] 7.2 g/dL 6.3-8.0 [facility] RBC Auto (Bld) [#/Vol]on RBC (Bld) [#/Vol] 4.48 10*6/uL 3.90-5.20 [facility] Serum or plasma anion gap de terminationon 12-27-2023 Anion gap [Moles/Vol] 6 mmol/L 8-15 [facility] CNCOon 12-05-2023 CNCO Letter Text Normal [facility] CNOVon 12-05-2023 CNOV Office Visit ([id number] ) ----- ROSA ALONZO ([id number]) 2000 F Date Time Provider Department 12/05/23 2:00 PM ARIELLA MCCOY [id number] During your visit today, we recorded the following information about you: Temperature Pulse Blood pressure Weight 98 degrees 90/minute 106/64 50.8 kg Height 1.626 m Alivia Gracia MA 12/05/2023 1:49 PM Signed What is the reason for your visit today? Post op 11/21/23 ghanshyam hernadez Who is your referring physician? ER Are you having poor oral intake? NO Have you had unintentional weight loss of 15 lbs/7 Kg in the last 3-6 months? NO Bowels: were good, then ended up with stomach bug and got over it on Sunday but no bowel movement since Sunday Wound: clean AND dry Temperature: No Drains: No Ariella Mccoy APRN.CNP 12/05/2023 2:23 PM Signed GENERAL SURGERY FOLLOW UP SUBJECTIVE: Rosa Alonzo presents for follow up of her laparoscopic cholecystectomy on 11/21/23. She tolerated the procedure well and was discharged home. Stomach virus started last Sunday, improved by Sunday. Stools are loose but no diarrhea since viral infection Surgeon: Ryan Pathology: FINAL DIAGNOSIS A. Gallbladder, cholecystectomy: -Gallbladder with no diagnostic abnormality. Patient complaints: None She denies abdominal pain, incisional pain, nausea, vomiting, diarrhea, fever, chills, jaundice , and dark urine She denies food intolerance. PHYSICAL EXAMINATION: BP 106/64 Pulse 90 Temp 36.7 ?C (98 ?F) (Temporal) Ht 162.6 cm (5' 4.02 ) Wt 50.8 kg (112 lb) LMP 11/15/2023 (Exact Date) SpO2 99% BMI 19.22 kg/m? General Appearance: Well developed, No acute distress Patient does not appear icteric. Abdomen: Abdomen soft, non-distended, non-tender Incisions: Clean, dry and intact with no drainage, erythema, swelling, ecchymosis, or tenderness IMPRESSION / PLAN: S/p laparoscopic cholecystectomy - doing well from the surgical standpoint Post-op patient instructions were reviewed with the patient. Low fat diet encouraged. Activity: No lifting more than 10-15 lbs (weight of a milk jug) for the first 2-3 weeks after surgery. I have encouraged her to contact the office at any time with any questions or concerns that may arise. Follow up: KAREN Mccoy APRN.CNP Referring Provider: ANALIA HOLLIDAY [[id number]] Allergies As of Date: 12/05/2023 Noted Allergy Reaction METRONIDAZOLE 09/07/2020 1 - Mental Status Change 6 - Diarrhea 8 - GI Upset 4 - Hives 14 - Other: See Comments 2 - Rash 12 - Shortness of Breath 16 - Unknown 11 - Vomiting Date Reviewed: 12/05/2023 Reviewed by: Darius, Ariella, SHIFT SUPERVISOR.ANALYSIS MGR - Fully Assessed Reason for Visit: Post Op Follow Up [3947] Cmt: 11/21/23 lap maricarmen Primary Visit Diagnosis:S/P gastrointestinal surgery, follow-up exam [Z09] Other Visit Diagnosis:S/P laparoscopic cholecystectomy [Z90.49] Prescriptions as of 12/05/2023 - dicyclomine (BENTYL) 20 mg tablet Take 1 tablet by mouth q 8 HR. - escitalopram oxalate (LEXAPRO) 10 mg tablet Take 5 mg by mouth once daily. - ondansetron (ZOFRAN) 4 mg tablet Take 4 mg by mouth as needed. 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 Post op 11/21/23 lap maricarmen Who is your referring physician? ER Are you having poor oral intake? NO Have you had unintentional weight loss of 15 lbs/7 Kg in the last 3-6 months? NO Bowels: were good, then ended up with stomach bug and got over it on Sunday but no bowel movement since Sunday Wound: clean AND dry Temperature: No Drains: No Disposition: Return if symptoms worsen or fail to improve. Follow-up and Disposition History for Encounter Date Provider Department Center 12/05/2023 [id number] MCCOY [id number] [facility] Encounter Status:Closed by ARIELLA MCCOY on 12/05/23 [facility] ANES POSTPROC EVALon 024 ANES POSTPROC EVAL HNO ID: [id number] Author: MOSHE KRISHNAMURTHY DO Service: Anesthesiology Author Type: Anesthesiologist Type: Anesthesia Postprocedure Evaluation Filed: 11/21/2023 17:47 Note Text: POST ANESTHESIA EVALUATION NOTE : 2000 Procedure Summary Date: 11/21/23 Room / Location: OR06 / [facility] OR Anesthesia Start: 1408 Anesthesia Stop: 1544 Procedure: LAPAROSCOPIC CHOLECYSTECTOMY (Gallbladder) Diagnosis: Cholecystitis (Cholecystitis [K81.9]) Surgeons: Seema Davis MD Responsible Provider: Moshe Krishnamurthy DO Anesthesia Type: general ASA Status: 1 Anesthesia Type: general Airway Type: ETT Last Vitals Vitals Value Taken Time BP 96/53 11/21/23 1655 Temp 36.5 ?C (97.7 ?F) 11/21/23 1700 HR SpO2 70 11/21/23 1655 Resp 16 11/21/23 1655 SpO2 100 % 11/21/23 1655 Post Anesthesia Patient Status Patient Evaluation: PACU. PACU/ICU Patient Condition: stable. Anticipated Disposition: phase 2 then home. Neurological Status: aware and responsive. Pulmonary Status: breathing comfortably on room air Airway Control: returned to baseline unsupported. Cardiovascular Status: stable. Pain Management: clinically adequate - multimodal analgesia pain management approach Postoperative Hydration: acceptable. Intraoperative Events: no significant anesthesia events Post Operative Nausea/Vomiting Status: no significant post operative nausea or vomiting Recommendation: continue current plan of care. Anesthesia Observations No Documentation SIGNATURE: Moshe Krishnamurthy DO PATIENT NAME: Rosa Alonzo DATE: November 21, 2023 TIME: 5:47 PM CSN: [id number] [facility] ANES PRE-OPon 11-21-2023 ANES PRE-OP HNO ID: [id number] Author: MOSHE KRISHNAMURTHY DO Service: Anesthesiology Author Type: Anesthesiologist Type: Anesthesia Preprocedure Evaluation Filed: 11/21/2023 14:08 Note Text: ANESTHESIOLOGY DAY OF SURGERY NOTE : 2000 Procedure Information Date/Time: 11/21/23 1405 Procedure: LAPAROSCOPIC CHOLECYSTECTOMY WITH GRAMS (Gallbladder) Location: [facility] OR06 / [facility] OR Surgeons: Seema Davis MD Estimated body mass index is 20.06 kg/m? as calculated from the following: Height as of 11/15/23: 162.6 cm (5' 4 ). Weight as of 11/15/23: 53 kg (116 lb 13.5 oz). Most recent hematocrit and potassium results: Hematocrit 37.7 11/15/2023 Potassium 4.5 11/15/2023 Relevant Problems No relevant active problems I - PHYSICAL EVALUATION AIRWAY Patient intubated: No. Tracheostomy tube not present Mallampati: I. TM distance: >3 FB. Neck ROM: full ROM without neurological symptoms. Mouth opening: adequate. Short neck: no. Thick neck: no DENTAL Dental findings: teeth intact. II - ANESTHESIA PLAN ASA Score: 1 Anesthetic Plan: general Airway type: ETT NPO Status: adequate Beta Michelle Monitoring Plan Monitoring plan: standard ASA. Post Procedure Analgesic Plan Postoperative analgesic plan: per surgical service. Informed Consent Anesthetic risks, benefits, alternatives, personnel and consent discussed: yes. Patient / Responsible Democrat agrees to proceed: yes Patient / Surrogate agrees to blood products: blood products not planned Potential Anesthesia issues that may suggest increased risk of complications or contraindication to planned procedure: none. Vitals Value Taken Time BP 111/68 11/21/23 1355 Pulse Resp 16 11/21/23 1355 Temp 36.8 ?C (98.2 ?F) 11/21/23 1355 SpO2 100 % 11/21/23 1355 Facility-Administered Medications as of 11/21/2023 Medication Dose Route Frequency - lidocaine (PF) 10 mg/mL (1 %) 1-2 mg injection (XYLOCAINE) 0.1-0.2 mL INTRADERMAL PRN - lactated ringers iv infusion 5-30 mL/hr INTRAVENOUS CONTINUOUS - NaCl 0.9% iv flush bag 20 mL INTRAVENOUS PRN - ceFAZolin iv piggyback 2 g in D5W (iso-osmotic) 100 mL (ANCEF) 2 g INTRAVENOUS Pre-Op Once - heparin 5,000 Units injection 5,000 Units SUBCUTANEOUS ONCE - [COMPLETED] acetaminophen 1,000 mg tab(s) (TYLENOL) 1,000 mg ORAL Pre-Op Once - [COMPLETED] promethazine 12.5 mg tab(s) (PHENERGAN) 12.5 mg ORAL Pre-Op Once - lactated ringers iv infusion 30 mL/hr INTRAVENOUS CONTINUOUS - scopolamine 1 mg over 3 days 1 Patch (TRANSDERM-SCOP) 1 Patch TRANSDERMAL ONCE Outpatient Medications as of 11/21/2023 Medication Sig - escitalopram oxalate (LEXAPRO) 10 mg tablet Take 5 mg by mouth once daily. - dicyclomine (BENTYL) 20 mg tablet Take 1 tablet by mouth q 8 HR. - ondansetron (ZOFRAN) 4 mg tablet Take 4 mg by mouth as needed. I have interviewed and examined the patient. I have reviewed the medical record and/or the pre-anesthesia evaluation, pertinent labs, and test results. This contains updated information obtained within 48 hours of Surgery/Procedure. SIGNATURE: Moshe Krishnamurthy DO PATIENT NAME: Rosa Alonzo DATE: November 21, 2023 TIME: 2:08 PM CSN: [id number] [facility] BRIEF OP NOTon 11-21-2023 BRIEF OP NOT HNO ID: [id number] Author: ANA LLANES MD Service: General Surgery Author Type: Resident Type: Brief Op Note Filed: 11/21/2023 15:32 Note Text: GENERAL SURGERY BRIEF OPERATIVE NOTE Rosa Alonzo [id number] LOG ID: [id number] Surgery/Procedure Date: 11/21/2023 Incision/Procedure Start Time: 2:30 PM Incision Close/Procedure End Time: 3:23 PM Surgeon(s)/Proceduralist( s) and Commercial Underwriter(s): Surgeon(s) and Role: * Seema Davis MD - Primary * Ana Llanes MD - Resident - Assisting Procedure(s): Procedure(s) and Anesthesia Type: * LAPAROSCOPIC CHOLECYSTECTOMY - General Anesthesia: General Findings: normal appearing gallbladder Estimated Blood Loss: 1 mls Specimens: ID Type Source Tests Collected by Time Destination A : Tissue Gallbladder SURGICAL PATHOLOGY Seema Davis MD 11/21/2023 2:39 PM Complications: None Wound Classification: Clean Contaminated Diagnosis: Pre-Op Diagnosis Codes: * Cholecystitis [K81.9] Post-Op Diagnosis Codes: * Same as preoperative diagnosis Post-Op Plan: - Discharge from PACU SIGNATURE: Ana Llanes MD PATIENT NAME: Rosa Alonzo DATE: November 21, 2023 TIME: 3:31 PM PAGER/CONTACT #: [phone] Normal [facility] OPERATIVE NOon 11-21-2023 OPERATIVE NO HNO ID: [id number] Author: SEEMA DAVIS MD Service: General Surgery Author Type: Physician Type: Operative Report Filed: 11/23/2023 14:05 Note Text: [facility] - Operative Report ROSA ALONZO : 2000 AGE: 23. SEX: F PATIENT TYPE: A [facility] [place] LOCATION: [facility] ATTENDING PHYSICIAN: Seema Davis M.D. CSN NUMBER: [id number] DATE OF SURGERY/PROCEDURE: 11/21/2023 INCISION/PROCEDURE START TIME: 2:30 PM INCISION CLOSE/PROCEDURE END TIME: 3:23 PM PREOPERATIVE DIAGNOSIS: Epigastric and right upper quadrant abdominal pain. POSTOPERATIVE DIAGNOSIS: Epigastric and right upper quadrant abdominal pain. SURGEON: Seema Davis M.D. SOUND ART INSTRUCTOR: Ana Llanes M.D. SURGERY/PROCEDURE: Laparoscopic cholecystectomy. ANESTHESIA: General endotracheal anesthesia. INTRAVENOUS FLUIDS: Please see record. ESTIMATED BLOOD LOSS: 5 mL. COMPLICATIONS: None. SPECIMENS: Gallbladder. DRAINS: None. DISPOSITION: Satisfactory to PACU. SURGICAL FINDINGS: Essentially normal appearing gallbladder. INDICATIONS FOR PROCEDURE: This is a 23-year-old female with chronic symptoms of epigastric and right upper quadrant pain as well as radiation to the right shoulder. Extensive workup was negative. There was a question of median arcuate ligament syndrome on CAT scan, but symptoms were much more consistent with the possibility of chronic cholecystitis. Therefore, laparoscopic cholecystectomy was recommended as the next step in management. Procedure risks were discussed including bleeding, infection, possible bowel or bile duct injury with possible conversion to open procedure, as well as nonresolution of symptoms. She understood and wished to proceed. DESCRIPTION OF PROCEDURE: Sign-in was undertaken in the holding area. Antibiotics were not given based on patient's history of C diff colitis. DVT prophylaxis was covered. The patient was brought to the operating room, where general anesthesia was achieved. The abdomen was prepped and draped widely. Audible time-out was taken. The patient's previous infraumbilical incision was utilized and carried sharply down to the fascia, where a vertical incision was created. The peritoneum was carefully entered bluntly and a 5 mm trocar inserted. CO2 insufflation was achieved, laparoscope was inserted, there was no evidence for visceral injury. The patient was placed in reverse Trendelenburg position. Needlescopic 2 mm alligator graspers were inserted in the right upper quadrant. For better cosmesis, an existing left mid abdominal 5 mm scar was utilized for the dissection port. Needlescopic instruments were used to elevate the gallbladder and the infundibulum, and dissection with a [place] as well as judicious cautery, exposed the triangle of Calot. Both the duct and artery were very clearly delineated and seen directly entering the gallbladder. The cystic artery was doubly clipped proximally, singly clipped distally and divided. The cystic duct was palpated. The patient had no stones. Anatomy seen quite clear and it was felt a cholangiogram was not necessary. The cystic duct was clipped x3 proximally, 1 distally, and divided. The loose areolar tissue between the gallbladder and liver was takenwith the hook and cautery. The gallbladder was placed in an EndoCatch bag and was able to be brought out through the initial infraumbilical site after having dilated it a bit. The fossa was completely clear. There was no evidence of bleeding or bile staining. The needlescopic instruments were removed and the 5 mm trocars were removed and the abdomen completely desufflated. The fascia of the infraumbilical site was closed with a single [id number] #0 Vicryl suture, local anesthetic was infiltrated and this was closed in layers with 3-0 Vicryl. The 5 mm sites were closed with 4-0 Monocryl. The wounds were washed and dried and Exofin glue applied. Patient was awakened and taken to Recovery in satisfactory condition. All counts were correct x2. I was present for the entire operation. Seema Davis M.D. :[id number] /[id number] [facility] PT EDon 11-21-2023 PT ED HNO ID: [id number] Author: JUAN NIEVES RN Service: Nursing Author Type: Registered Nurse Type: Patient Education Filed: 11/21/2023 16:52 Note Text: PATIENT EDUCATION TOPIC: PROCEDURE / SURGERY: Post-op Teaching: Med Administration, Symptom Management, and Wound Care PATIENT NAME: Rosa Alonzo PATIENT LOCATION: [facility] OR POOL/[facility] OR POOL READINESS TO LEARN COGNITIVE ABILITY: Alert and oriented MOTIVATION TO LEARN: Eager FAMILY SUPPORT: High - Very involved in pt care INSTRUCTION PROVIDED TO: Spouse PATIENT LEARNS BEST BY: Written Instruction - Hand-outs Verbal Instruction Demonstration FACTORS AFFECTING LEARNING: None PHYSICAL LIMITATIONS AFFECTING LEARNING: None LEARNING RESPONSE PATIENT/FAMILY RESPONSE: Verbalizes understanding of: INFECTION MANAGEMENT-Signs and symptoms of an infection and importance of contacting the physician MEDICATION PRESCRIBED-Accurate knowledge of prescribed medication prior to discharge MEDICATION SIDE EFFECTS-Side effects associated with the medication that warrant a call to the physician PAIN MANAGEMENT-Effective strategies to manage pain in addition to pain medication PHYSICAL RESTRICTIONS-Physical restrictions and recommendations after discharge from the hospital POST-OPERATIVE INSTRUCTIONS-Correct actions to take to reduce postoperative complications VTE prevention measures WORSENING CONDITION-Signs and symptoms of a worsening condition that warrant a call to the physician WOUND CARE-Correct procedure to perform wound care Information received as demonstrated by interest and questions METHOD OF INSTRUCTION: Written instruction - handouts FOLLOW-UP PLAN: Patient instructed to call with any further issues Recommend - Recommend continued instruction and follow up as directed Follow up phone call. Contact information given. INSTRUCTIONAL AIDS USED: NA SUPPLEMENTAL MATERIAL PROVIDED TO PATIENT: None REFERRAL (RECOMMENDATION): None Electronically Signed By: Juan Nieves [facility] PT ED HNO ID: [id number] Author: SHADIA PAINTER RN Service: ? Author Type: Registered Nurse Type: Patient Education Filed: 11/21/2023 13:48 Note Text: PATIENT EDUCATION TOPIC: PROCEDURE / SURGERY: Pre-op Teaching: Logistics Protocols Complication Prevention PATIENT NAME: Rosa PATIENT LOCATION: [facility] OR POOL/[facility] OR POOL READINESS TO LEARN COGNITIVE ABILITY: Alert and oriented MOTIVATION TO LEARN: Interested FAMILY SUPPORT: Unable to assess - Family not present INSTRUCTION PROVIDED TO: Patient PATIENT LEARNS BEST BY: Individual Instruction Verbal Instruction FACTORS AFFECTING LEARNING: None PHYSICAL LIMITATIONS AFFECTING LEARNING: None LEARNING RESPONSE DIAGNOSIS: ADULT: PATIENT/FAMILY RESPONSE: Verbalizes understanding of: PRE-OPERATIVE INSTRUCTIONS-Correct action to take to follow pre-operative instructions METHOD OF INSTRUCTION: Individual instruction Verbal instruction FOLLOW-UP PLAN: Complete - No need for follow-up INSTRUCTIONAL AIDS USED: NA SUPPLEMENTAL MATERIAL PROVIDED TO PATIENT: None REFERRAL (RECOMMENDATION): None Electronically Signed By: Shadia Painter Normal [facility] SURGICAL PATHOLOGYon 024 CASE REPORT [facility] Comment on above: Order Comment: Speci men Type: TISSUE SPECIMENOrdering Facility: [facility] Address: [address] [place] [address] Result Comment: Surg ical Pathology Report Case: [id number] Authorizing Provider: Seema Davis MD Collected: 11/21/2023 02:39 PM Ordering Location: [facility] Received: 11/22/2023 07:43 AM Operating Room Pathologist: Woodrow Rain MD Specimen: Gallbladder Performed By: #### S ####[facility] [id number] [address] [place] CLINICAL HISTORY [facility] Comment on above: Order Comment: Speci men Type: TISSUE SPECIMENOrdering Facility: [facility] Address: [address] [place] [address] Result Comment: Pre- op diagnosis: Cholecystitis [K81.9] Performed By: #### S ####[facility] [id number] [address] FINAL DIAGNOSIS [facility] Comment on above: Order Comment: Speci men Type: TISSUE SPECIMENOrdering Facility: [facility] Address: [address] [place] [address] Result Comment: A. G allbladder, cholecystectomy: -Gallbladder with no diagnostic abnormality. Performed By: #### S ####[facility] [id number] [address] [place] FINAL PERFORMING LAB [facility] Comment on above: Order Comment: Speci men Type: TISSUE SPECIMENOrdering Facility: [facility] Address: [address] [place] [address] Result Comment: Diag nostic interpretation performed at [facility], [address] [address] CLIA# [id number] Railroad Firer/Fireman: Roverto Coleman M.D. Performed By: #### S ####[facility]IA [id number] [place] [address] [place] GROSS DESCRIPTION A. Gallbladder Normal [facility] Comment on above: Order Comment: Speci men Type: TISSUE SPECIMENOrdering Facility: [facility] Address: [address] [place] [address] Result Comment: Rece ived in formalin designated gallbladder is a gallbladder that measures 7.7 x 2.9 x 2.7 cm. The serosal surface is green and smooth. The cystic duct measures 0.2 cm in length and 0.1 cm in diameter. Within the gallbladder is a green viscous bile. There are no calculi within the gallbladder or impacting the cystic duct. The gallbladder mucosa is green and velvety with a wall thickness of 0.1 cm. Gravure Press Operator sections are submitted in 1 cassette. WE November 22, 2023 11:51 AM Gross examination performed at [facility], [address] [place] [address] Performed By: #### S ####[facility]IA [id number] [place] [address] [place] Basophils Auto (Bld) [#/Vol] on 11-15-2023 Basophils (Bld) [#/Vol] 0.04 10*3/uL <0.11 [facility] Basophils/100 WBC Auto (Bld) on 11-15-2023 Basophils/100 WBC (Bld) 0.7 % [facility] Blood manual differential co mment interpretation narrativeon 11-15-2023 Manual differential comment Ganga (Bld) [Interp] Auto [facility] CBC W Auto Differential pane l (Bld)on 11-15-2023 Basophils (Bld) [#/Vol] 0.04 10*3/uL Normal <0.11 [facility] Comment on above: Order Comment: Speci men Type: BLOOD SPECIMEN [facility] Address: [address] [place] [address] Performed By: #### 5 7021-8 #### [facility] CLIA [id number] [address] [place] [address] [place] Basophils/100 WBC (Bld) 0.7 % Normal [facility] Comment on above: Order Comment: Speci men Type: BLOOD SPECIMEN [facility]ing [facility] Address: [address] [place] [address] Performed By: #### 5 7021-8 #### [facility] CLIA [id number] [address] [address] [place] [id number] [place] Differential cell count method Nom (Bld) Auto Normal [facility] Comment on above: Order Comment: Speci men Type: BLOOD SPECIMEN [facility] Address: [address] [place] [address] Performed By: #### 5 7021-8 #### [facility] IA [id number] [address] [place] [address] [place] Eosinophils (Bld) [#/Vol] 0.19 10*3/uL Normal <0.46 [facility] Comment on above: Order Comment: Speci men Type: BLOOD SPECIMEN [facility]ing [facility]: [facility] Address: [address] [place] [address] Performed By: #### 5 7021-8 #### [facility] IA [id number] [address] [place] [address] [place] Eosinophils/100 WBC (Bld) 3.4 % Normal [facility] Comment on above: Order Comment: Speci men Type: BLOOD SPECIMEN [facility]ing [facility]: [facility] Address: [address] [place] [address] Performed By: #### 5 7021-8 #### [facility] IA [id number] [address] [place] [address] [place] Erythrocyte distribution width (RBC) [Ratio] 11.6 % Normal 11.5-15.0 [facility] Comment on above: Order Comment: Speci men Type: BLOOD SPECIMEN [facility]ing [facility]: [facility] Address: [address] [place] [address] Performed By: #### 5 7021-8 #### [facility] IA [id number] [address] [place] [address] [place] Hematocrit (Bld) [Volume fraction] 37.7 % Normal 36.0-46.0 [facility] Comment on above: Order Comment: Speci men Type: BLOOD SPECIMEN [facility]ing [facility] Address: [address] [place] [address] Performed By: #### 5 7021-8 #### [facility] IA [id number] [address] [place] [address] [place] Hemoglobin (Bld) [Mass/Vol] 12.6 g/dL Normal 11.5-15.5 [facility] Comment on above: Order Comment: Speci men Type: BLOOD SPECIMEN [facility]ing [facility] Address: [address] [place] [address] Performed By: #### 5 7021-8 #### [facility] IA [id number] [place] [address] [place] Immature granulocytes (Bld) [#/Vol] 10*3/uL Normal <0.10 [facility] Comment on above: Order Comment: Speci men Type: BLOOD SPECIMEN [facility]ing [facility]: [facility] Address: [address] [place] [address] Performed By: #### 5 7021-8 #### [facility] IA [id number] [address] [place] [id number] [place] Immature granulocytes/100 WBC (Bld) 0.2 % Normal [facility] Comment on above: Order Comment: Speci men Type: BLOOD SPECIMEN [facility]ing [facility]: [facility] Address: [address] [place] [address] Performed By: #### 5 7021-8 #### [facility] IA [id number] [address] [place] [address] [place] Lymphocytes (Bld) [#/Vol] 2.43 10*3/uL Normal 1.00-4.00 [facility] Comment on above: Order Comment: Speci men Type: BLOOD SPECIMEN [facility]ing Facility: [facility] Address: [address] [place] [address] Performed By: #### 5 7021-8 #### [facility] CLIA [id number] [address] [place] [address] [place] Lymphocytes/100 WBC (Bld) 43.6 % Normal [facility] Comment on above: Order Comment: Speci men Type: BLOOD SPECIMEN [facility]: [facility] Address: [address] [place] [address] Performed By: #### 5 7021-8 #### [facility] IA [id number] [address] [place] [address] [place] MCH (RBC) [Entitic mass] 31.9 pg Normal 26.0-34.0 [facility] Comment on above: Order Comment: Speci men Type: BLOOD SPECIMEN [facility] Address: [address] [place] [address] Performed By: #### 5 7021-8 #### [facility] IA [id number] [address] [place] [address] [place] MCHC (RBC) [Mass/Vol] 33.4 g/dL Normal 30.5-36.0 [facility] Comment on above: Order Comment: Speci men Type: BLOOD SPECIMEN [facility] Address: [address] [place] [address] Performed By: #### 5 7021-8 #### [facility] IA [id number] [address] [place] [address] [place] MCV (RBC) [Entitic vol] 95.4 fL Normal 80.0-100.0 [facility] Comment on above: Order Comment: Speci men Type: BLOOD SPECIMEN [facility] Address: [address] [place] [address] Performed By: #### 5 7021-8 #### [facility] CLIA [id number] [place] [address] [place] Monocytes (Bld) [#/Vol] 0.47 10*3/uL Normal <0.87 [facility] Comment on above: Order Comment: Speci men Type: BLOOD SPECIMEN [facility] Address: [address] [place] [address] Performed By: #### 5 7021-8 #### [facility] CLIA [id number] [address] [place] [address] [place] Monocytes/100 WBC (Bld) 8.4 % Normal [facility] Comment on above: Order Comment: Speci men Type: BLOOD SPECIMEN [facility]: [facility] Address: [address] [place] [address] Performed By: #### 5 7021-8 #### [facility] IA [id number] [address] [place] [address] [place] Neutrophils (Bld) [#/Vol] 2.43 10*3/uL Normal 1.45-7.50 [facility] Comment on above: Order Comment: Speci men Type: BLOOD SPECIMEN [facility]: [facility] Address: [address] [place] [address] Performed By: #### 5 7021-8 #### [facility] IA [id number] [address] [place] [address] [place] Neutrophils/100 WBC (Bld) 43.7 % Normal [facility] Comment on above: Order Comment: Speci men Type: BLOOD SPECIMEN [facility]ing [facility]: [facility] Address: [address] [place] [address] Performed By: #### 5 7021-8 #### [facility] IA [id number] [place] [address] [place] Nucleated RBC (Bld) [#/Vol] 10*3/uL Normal <0.01 [facility] Comment on above: Order Comment: Speci men Type: BLOOD SPECIMEN [facility]ing [facility]: [facility] Address: [address] [place] [address] Performed By: #### 5 7021-8 #### [facility] IA [id number] [address] [place] [address] [place] Nucleated RBC/100 WBC (Bld) [Ratio] 0.0 /100 WBC Normal [facility] Comment on above: Order Comment: Speci men Type: BLOOD SPECIMEN [facility]: [facility] Address: [address] [place] [address] Performed By: #### 5 7021-8 #### [facility] IA [id number] [address] [place] [address] [place] Platelet mean volume (Bld) [Entitic vol] 10.5 fL Normal 9.0-12.7 [facility] Comment on above: Order Comment: Speci men Type: BLOOD SPECIMEN [facility]: [facility] Address: [address] [place] [address] Performed By: #### 5 7021-8 #### [facility] IA [id number] [address] [place] [address] [place] Platelets (Bld) [#/Vol] 201 10*3/uL Normal 150-400 [facility] Comment on above: Order Comment: Speci men Type: BLOOD SPECIMEN [facility]: [facility] Address: [address] [place] [address] Performed By: #### 5 7021-8 #### [facility] IA [id number] [address] [place] [address] [place] RBC (Bld) [#/Vol] 3.95 10*6/uL Normal 3.90-5.20 [facility] Comment on above: Order Comment: Speci men Type: BLOOD SPECIMEN [facility] Address: [address] [place] [address] Performed By: #### 5 7021-8 #### [facility] IA [id number] [address] [place] [address] [place] WBC (Bld) [#/Vol] 5.57 10*3/uL Normal 3.70-11.00 [facility] Comment on above: Order Comment: Speci men Type: BLOOD SPECIMEN Order[facility] Address: [address] [id number] Performed By: #### 5 7021-8 #### [facility] CLIA [id number] [address] [place] [address] [place] [facility] Basophils (Bld) [#/Vol] 0.04 10*3/uL [facility] Basophils/100 WBC (Bld) 0.7 % [facility] Differential cell count method Nom (Bld) Auto [facility] Eosinophils (Bld) [#/Vol] 0.19 10*3/uL [facility] Eosinophils/100 WBC (Bld) 3.4 % [facility] Erythrocyte distribution width (RBC) [Ratio] 11.6 % 11.5 - 15.0 % [facility] Hematocrit (Bld) [Volume fraction] 37.7 % 36.0 - 46.0 % [facility] Hemoglobin (Bld) [Mass/Vol] 12.6 g/dL 11.5 - 15.5 g/dL [facility] Immature granulocytes (Bld) [#/Vol] [facility] Immature granulocytes/100 WBC (Bld) 0.2 % [facility] Lymphocytes (Bld) [#/Vol] 2.43 10*3/uL [facility] Lymphocytes/100 WBC (Bld) 43.6 % [facility] MCH (RBC) [Entitic mass] 31.9 pg 26.0 - 34.0 pg [facility] MCHC (RBC) [Mass/Vol] 33.4 g/dL 30.5 - 36.0 g/dL [facility] MCV (RBC) [Entitic vol] 95.4 fL 80.0 - 100.0 fL [facility] Monocytes (Bld) [#/Vol] 0.47 10*3/uL [facility] Monocytes/100 WBC (Bld) 8.4 % [facility] Neutrophils (Bld) [#/Vol] 2.43 10*3/uL [facility] Neutrophils/100 WBC (Bld) 43.7 % [facility] Nucleated RBC (Bld) [#/Vol] [facility] Nucleated RBC/100 WBC (Bld) [Ratio] 0.0 % /100 WBC [facility] Platelet mean volume (Bld) [Entitic vol] 10.5 fL 9.0 - 12.7 fL [facility] Platelets (Bld) [#/Vol] 201 10*3/uL [facility] RBC (Bld) [#/Vol] 3.95 10*6/uL 3.90 - 5.2 0 m/uL [facility] WBC (Bld) [#/Vol] 5.57 10*3/uL [facility] CNPNon 11-15-2023 CNPN Telephone (AVPANE) ----- ROSA ALONZO ([id number]) 2000 F Date Time Provider Department 11/15/23 VIKTORIA CAUSEY During your visit today, we recorded the following information about you: Viktoria Causey PA-C 11/16/2023 7:[address] Rushing , Your patient was seen for preanesthesia consult 11/15/2023. Rosa Alonzo is scheduled for LAPAROSCOPIC CHOLECYSTECTOMY with Dr. Seema Davis on 11/21/2023. Do you feel they are medically optimized and ok to proceed as scheduled? Event monitor preliminary reading in [facility] View Cardiac Outpatient Recording/Telemetry [ID [id number]] ECHO completed in [facility]. Of note she also has been to the ED 2 times for her palpitations since your visit, with c/o of palpations intermittently throughout the day. she denies associated SOB or dizziness. She reports her symptoms have not changed. Thank you, Viktoria Causey PA-C Pre[facility]est[facility]ation [facility] Valery Lujan RN 11/15/2023 5:14 PM Signed Plan: - Vitals today: BP of 102/62 and a HR of 40 - Not currently on any cardiac medications - Will order an echo and a Zio for now - Will say that for now none of the above tests should prohibit her going forward with her surgery - She is deemed intermediate risk for this intermediate risk surgery - No further testing is needed prior to the surgery - At the time of this is examination she is deemed optimized from a cardiac standpoint. Per his last OV Viktoria Causey PA-C 11/16/2023 7:38 AM Signed Sedrick Rushing MD You; Wilfredo Avila OCCA; Avw Card Nurse 9 hours ago (10:29 PM) AM HI Everyone, As stated previously she is optimized at the time that I saw her in the office. If something has changed and her symptoms have worsened or changed in any way then she would need to be seen prior to clearing her. However, if she remains the same as she had felt when she was seen in the office then she would be considered optimized and considered intermediate risk for the intermediate risk surgery. Hope this helps! MD Enmanuel Fairchild Cynthia, OCCA 12/07/2023 4:31 PM Signed Faxed Cardiac Clearance form to [facility] at [phone]. Scanned into chart. CHATO Ramirez Allergies As of Date: 11/15/2023 Noted Allergy Reaction METRONIDAZOLE 09/07/2020 1 - Mental Status Change 6 - Diarrhea 8 - GI Upset 4 - Hives 14 - Other: See Comments 2 - Rash 12 - Shortness of Breath 16 - Unknown 11 - Vomiting Date Reviewed: 11/15/2023 Reviewed by: Gisela Blackmon MA - Fully Assessed Reason for Visit: Pre-Op Exam [87] Prescriptions as of 12/07/2023 - dicyclomine (BENTYL) 20 mg tablet Take 1 tablet by mouth q 8 HR. - escitalopram oxalate (LEXAPRO) 10 mg tablet Take 5 mg by mouth once daily. - ondansetron (ZOFRAN) 4 mg tablet Take 4 mg by mouth as needed. 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] 11/15/2023 Palpitations [R00.2] 11/15/2023 Encounter Status:Closed by VIKTORIA CAUSEY on 11/16/23 Normal [facility] Comprehensive metabolic 2000 panelon 11-15-2023 Albumin [Mass/Vol] 4.4 g/dL Normal 3.9-4.9 [facility] Comment on above: Order Comment: Speci men Type: BLOOD SPECIMEN [facility] Address: [address] [place] [address] Performed By: #### 2 4323-8 #### [facility] CLIA [id number] [address] [place] [address] [place] ALP [Catalytic activity/Vol] 47 U/L Normal 34-123 [facility] Comment on above: Order Comment: Speci men Type: BLOOD SPECIMEN [facility]: [facility] Address: [address] [place] [address] Performed By: #### 2 4323-8 #### [facility] CLIA [id number] [address] [place] [address] [place] ALT [Catalytic activity/Vol] 8 U/L Normal 7-38 [facility] Comment on above: Order Comment: Speci men Type: BLOOD SPECIMEN [facility]: [facility] Address: [address] [place] [address] Performed By: #### 2 4323-8 #### [facility] CLIA [id number] [address] [place] [address] [place] Anion gap [Moles/Vol] 11 mmol/L Normal 9-18 [facility] Comment on above: Order Comment: Speci men Type: BLOOD SPECIMEN [facility]ing Facility: [facility] Address: [address] [place] [address] Performed By: #### 2 4323-8 #### [facility] IA [id number] [address] [place] [address] [place] AST [Catalytic activity/Vol] 18 U/L Normal 13-35 [facility] Comment on above: Order Comment: Speci men Type: BLOOD SPECIMEN [facility]ing Facility: [facility] Address: [address] [place] [address] Performed By: #### 2 4323-8 #### [facility] CLIA [id number] [address] [place] [address] [place] Bilirubin [Mass/Vol] 0.4 mg/dL Normal 0.2-1.3 [facility] Comment on above: Order Comment: Speci men Type: BLOOD SPECIMEN [facility]ing Facility: [facility] Address: [address] [place] [address] Performed By: #### 2 4323-8 #### [facility] IA [id number] [address] [place] [address] [place] Calcium [Mass/Vol] 9.6 mg/dL Normal 8.5-10.2 [facility] Comment on above: Order Comment: Speci men Type: BLOOD SPECIMEN [facility]ing Facility: [facility] Address: [address] [place] [address] Performed By: #### 2 4323-8 #### [facility] CLIA [id number] [address] [place] [address] [place] Chloride [Moles/Vol] 103 mmol/L Normal 97-105 [facility] Comment on above: Order Comment: Speci men Type: BLOOD SPECIMEN Ordering Facility: [facility] Address: [address] [place] [address] Performed By: #### 2 4323-8 #### [facility] CLIA [id number] [address] [place] [address] [place] CO2 [Moles/Vol] 24 mmol/L Normal 22-30 [facility] Comment on above: Order Comment: Meenai men Type: BLOOD SPECIMEN Ordering Facility: [facility] Address: [address] [place] [address] Performed By: #### 2 4323-8 #### [facility] CLIA [id number] [address] [place] [address] [place] Creatinine [Mass/Vol] 0.75 mg/dL Normal 0.58-0.96 [facility] Comment on above: Order Comment: [facility] [facility]: [facility]LOOD [facility]EN Ordering Facility: [facility] Address: [address] [place] [address] Performed By: #### 2 4323-8 #### [facility] CLIA [id number] [address] [place] [address] [place] Creatinine and Glomerular filtration rate.predicted panel (S/P/Bld) 114 mL/min/1.73m??? Normal >=60 [facility] Comment on above: Order Comment: [facility] Type: BLOOD SPECIMEN Ordering Facility: [facility] Address: [address] [place] [address] Result Comment: Ny mated Glomerular Filtration Rate (eGFR) is calculated using the 2020 CKD-EPI creatinine equation. This equation utilizes serum creatinine, sex, and age as parameters. The creatinine assay has traceable calibration to isotope dilution-mass spectrometry. Refer to KDIGO guidelines for clinical interpretation. In patients with unstable renal function, e.g. those with acute kidney injury, the eGFR may not accurately reflect actual GFR. Performed By: #### 2 4323-8 #### [facility] CLIA [id number] [address] [place] [address] [place] Glucose [Mass/Vol] 109 mg/dL High 74-99 [facility] Comment on above: Order Comment: [facility] Type: BLOOD SPECIMEN Ordering Facility: [facility] Address: [address] [place] [address] Result Comment: The [place] Diabetes Association (ADA) provides guidance for cutoff values for fasting glucose and random glucose. The ADA defines fasting as no caloric intake for at least 8 hours. Fasting plasma glucose results between 100 to 125 mg/dL indicate increased risk for diabetes (prediabetes). Fasting plasma glucose results greater than or equal to 126 mg/dL meet the criteria for diagnosis of diabetes. In the absence of unequivocal hyperglycemia, results should be confirmed by repeat testing. In a patient with classic symptoms of hyperglycemia or hyperglycemic crisis, random plasma glucose results greater than or equal to 200 mg/dL meet the criteria for diagnosis of diabetes. Reference: Standards of Medical Care in Diabetes 2016, [place] Diabetes Association. Diabetes Care. 2016.39(Suppl 1). Performed By: #### 2 4323-8 #### [facility] [place] [id number] [address] [place] [address] [place] Potassium [Moles/Vol] 4.5 mmol/L Normal 3.7-5.1 [facility] Comment on above: Order Comment: Speci men Type: BLOOD SPECIMEN Ordering Facility: [facility] Address: [address] [place] [address] Performed By: #### 2 4323-8 #### [facility] [place] [id number] [address] [place] [address] [place] Protein [Mass/Vol] 6.9 g/dL Normal 6.3-8.0 [facility] Comment on above: Order Comment: Speci men Type: BLOOD SPECIMEN Ordering Facility: [facility] Address: [address] [place] [address] Performed By: #### 2 4323-8 #### [facility] [place] [id number] [address] [place] [address] [place] Sodium [Moles/Vol] 138 mmol/L Normal 136-144 [facility] Comment on above: Order Comment: Speci men Type: BLOOD SPECIMEN Ordering Facility: [facility] Address: [address] [place] [address] Performed By: #### 2 4323-8 #### [facility] IA [id number] [address] [place] [address] [place] Urea nitrogen [Mass/Vol] 16 mg/dL Normal 7-21 [facility] Comment on above: Order Comment: Speci men Type: BLOOD SPECIMEN Ordering Facility: [facility] Address: [address], [place] [address] Performed By: #### 2 4323-8 #### [facility] CLIA [id number] [address] [place] [address] [place] Albumin [Mass/Vol] 4.4 g/dL 3.9 - 4.9 g/dL [facility] ALP [Catalytic activity/Vol] 47 U/L 34 - 123 U/L [facility] ALT [Catalytic activity/Vol] 8 U/L 7 - 38 U/L [facility] Anion gap [Moles/Vol] 11 mmol/L 9 - 18 mmol/L [facility] AST [Catalytic activity/Vol] 18 U/L 13 - 35 U/L [facility] Bilirubin [Mass/Vol] 0.4 mg/dL 0.2 - 1 .3 mg/dL [facility] Calcium [Mass/Vol] 9.6 mg/dL 8.5 - 10. 2 mg/dL [facility] Chloride [Moles/Vol] 103 mmol/L 97 - 10 5 mmol/L [facility] CO2 [Moles/Vol] 24 mmol/L 22 - 30 mmol/L [facility] Creatinine [Mass/Vol] 0.75 mg/dL 0.58 - 0.96 mg/dL [facility] GFR/1.73 sq M.predicted among non-blacks MDRD (S/P/Bld) [Vol rate/Area] 114 mL/min/{1.73_m2} - PINF [facility] Comment on above: Estimated Glomerular Filtration Rate (eGFR) is calculated using the 2020 CKD-EPI creatinine equation. This equation utilizes serum creatinine, sex, and age as parameters. The creatinine assay has traceable calibration to isotope dilution-mass spectrometry. Refer to KDIGO guidelines for clinical interpretation. In patients with unstable renal function, e.g. those with acute kidney injury, the eGFR may not accurately reflect actual GFR. Glucose [Mass/Vol] 109 mg/dL High 74 - 99 mg/dL [facility] Comment on above: The [place] Diabete s Association (ADA) provides guidance for cutoff values for fasting glucose and random glucose. The ADA defines fasting as no caloric intake for at least 8 hours. Fasting plasma glucose results between 100 to 125 mg/dL indicate increased risk for diabetes (prediabetes). Fasting plasma glucose results greater than or equal to 126 mg/dL meet the criteria for diagnosis of diabetes. In the absence of unequivocal hyperglycemia, results should be confirmed by repeat testing. In a patient with classic symptoms of hyperglycemia or hyperglycemic crisis, random plasma glucose results greater than or equal to 200 mg/dL meet the criteria for diagnosis of diabetes. Reference: Standards of Medical Care in Diabetes 2016, [place] Diabetes Association. Diabetes Care. 2016.39(Suppl 1). Interpretation and review of laboratory results Abnormal [facility] Potassium [Moles/Vol] 4.5 mmol/L 3.7 - 5.1 mmol/L [facility] Protein [Mass/Vol] 6.9 g/dL 6.3 - 8.0 g/dL [facility] Sodium [Moles/Vol] 138 mmol/L 136 - 144 mmol/L [facility] Urea nitrogen [Mass/Vol] 16 mg/dL 7 - 21 mg/dL [facility] Eosinophils/100 WBC Auto (Bl d)on 11-15-2023 Eosinophils/100 WBC (Bld) 3.4 % [facility] Erythrocyte distribution wid th Auto (RBC) [Ratio]on 11-15-2023 Erythrocyte distribution width (RBC) [Ratio] 11.6 % 11.5-15.0 [facility] HISTORY PHYSICALon HISTORY PHYSICAL HNO ID: [id number] Author: VIKTORIA CAUSEY PA-C Service: ? Author Type: Physician Commercial Underwriter Type: H&P Filed: 11/16/2023 07:41 Note Text: HISTORY AND PHYSICAL EXAMINATION SERVICE DATE: 11/15/2023 SERVICE TIME: 2:43 PM PRIMARY CARE PHYSICIAN: Analia Holliday CNP REASON FOR VISIT: Rosa Alonzo is a 22 year old female who is scheduled for LAPAROSCOPIC CHOLECYSTECTOMY at the request of Dr. Seema Davis for consultation. My final recommendation will be communicated back to the requesting physician by way of shared medical record or letter. Assessment Patient has the following medical conditions which may affect elisha-operative course: 1. Pre-op examination surgery scheduled for 11/21/2023 - COMPLETE BLOOD COUNT AND DIFFERENTIAL; Future - COMPREHENSIVE METABOLIC PANEL; Future 2. Palpitations Follows with cardiology, Dr. Rushing, last OV 10/22/2023. Patient completed cardiac testing recommended. Patient reports her symptoms have not changed. they still occur 1/week. Denies associated dizziness, syncope, CP, SOB. 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 ANESTHESIA FINDINGS: Intubation History: No history of difficult intubation Significant Anesthesia Considerations: None Airway Exam: General: Normal appearance Body mass index is 20.06 kg/m?. Mallampati Score is CLASS I ULBT: Class I - Lower incisors can bite the upper lip above the marva line Neck: Normal appearance and function, Distance from hyoid to mentum during neck extension is at least 3 finger breaths Mouth: Normal tongue size and Mouth opening greater than 2 finger breaths Dentition: Intact and Caps/crowns Airway History: No history of difficult intubation METS: Walk a block or two on level ground (2.75 METs) Climb a flight of stairs or walk up a hill (5.50 METs) Patient denies any chest pain or undue shortness of breath with the above physical activity. STOP BANG Score: Criteria: None Score = 0 Prepared for surgery: This patient is optimally prepared for surgery Telephone Encounter sent to Dr Rushing, regarding Cardiac Optimization. Today patient symptoms have not changed. Addendum November 16, 2023 7:39 AM Sedrick Rushing MD You; Wilfrdeo Avila OCCA; Chasew Card Nurse 9 hours ago (10:29 PM) AM HI Everyone, As stated previously she is optimized at the time that I saw her in the office. If something has changed and her symptoms have worsened or changed in any way then she would need to be seen prior to clearing her. However, if she remains the same as she had felt when she was seen in the office then she would be considered optimized and considered intermediate risk for the intermediate risk surgery. Hope this helps! Augustus Rushing MD CONSULTS: The following consults have been initiated at this time: Cardiology- Cardiac Optimization regarding palpations and recent cardiac testing The Following Tests/Procedures Have Been Initiated: EKG not indicated per [facility] protocol - EKG 10/19/2023 without new s/sx Orders placed today -CBC+DIFF and CMP I recommended to be completed navdeep Planned Anesthetic: Per anesthesia choice The patient has the following: ACTIVE PROBLEM LIST Cervicalgia Chronic Pain of Left Knee Chronic Left Shoulder Pain Recurrent Infections Urticaria Chronic Fatigue Bilateral Arm Pain Chronic Bilateral Low Back Pain Without Sciatica Abnormal Findings On Imaging Test Photosensitivity Organic Anxiety Syndrome Palpitations Subjective CHIEF COMPLAINT: Cholecystitis HPI: Patient is a 22 year old female presenting to pre-anesthesia consultation. Patient has Cholecystitis and intermittent abd pain for 1.5 years. pain is worse with eating. denies dark tarry stools. denies liver disease. Recommended for above surgery. PAST MEDICAL HISTORY Diagnosis Date Pancreatitis PAST SURGICAL HISTORY Procedure Laterality Date COLONOSCOPY EGD ENDOMETRIAL WASHINGS laproscopicaly FAMILY HISTORY Problem Relation Age of Onset Stroke Mother Heart Father Prostate Cancer Father Colon Cancer No Family History SOCIAL HISTORY: Social History Tobacco Use Smoking status: Never Smokeless tobacco: Never Vaping Use Vaping Use: Never used Substance Use Topics Alcohol use: Not Currently Comment: socially- rare Drug use: Not Currently Types: Marijuana Comment: rare edible MEDICATIONS: Prior to Admission medications as of 11/15/23 1449 Medication Sig Last Dose Taking dicyclomine (BENTYL) 20 mg tablet Take 1 tablet by mouth q 8 HR. Taking Yes escitalopram oxalate (LEXAPRO) 10 mg tablet Take 5 mg by mouth once daily. Taking Yes ondansetron (ZOFRAN) 4 mg tablet Take 4 mg by mouth as needed. Taking Differently Yes No (more content not included)... Normal [facility] Hematocrit Auto (Bld) [Volum e fraction]on 11-15-2023 Hematocrit (Bld) [Volume fraction] 37.7 % 36.0-46.0 [facility] Hemoglobin [Mass/volume] in Bloodon 11-15-2023 Hemoglobin (Bld) [Mass/Vol] 12.6 g/dL 11.5-15.5 [facility] Laboratory - Chemistry and C hemistry - challengeon 11-15-2023 Albumin [Mass/Vol] 4.4 g/dL 3.9-4.9 [facility] ALP [Catalytic activity/Vol] 47 U/L 34-123 [facility] ALT [Catalytic activity/Vol] 8 U/L 7-38 [facility] AST [Catalytic activity/Vol] 18 U/L 13-35 [facility] Bilirubin [Mass/Vol] 0.4 mg/dL 0.2-1.3 [facility] Calcium [Mass/Vol] 9.6 mg/dL 8.5-10.2 [facility] Chloride [Moles/Vol] 103 mmol/L 97-105 [facility] CO2 [Moles/Vol] 24 mmol/L 22-30 [facility] Creatinine [Mass/Vol] 0.75 mg/dL 0.58-0.96 [facility] Glucose [Mass/Vol] 109 mg/dL 74-99 [facility] Comment on above: The [place] Diabete s Association (ADA) provides guidance for cutoff values for fasting glucose and random glucose. The ADA defines fasting as no caloric intake for at least 8 hours. Fasting plasma glucose results between 100 to 125 mg/dL indicate increased risk for diabetes (prediabetes).Fasting plasma glucose results greater than or equal to 126 mg/dL meet the criteria for diagnosis of diabetes. In the absence of unequivocal hyperglycemia, results should be confirmed by repeat testing. In a patient with classic symptoms of hyperglycemia or hyperglycemic crisis, random plasma glucose results greater than or equal to 200 mg/dL meet the criteria for diagnosis of diabetes.Reference: Standards of Medical Care in Diabetes 2016, [place] Diabetes Association. Diabetes Care. 2016.39(Suppl 1). Potassium [Moles/Vol] 4.5 mmol/L 3.7-5.1 [facility] Sodium [Moles/Vol] 138 mmol/L 136-144 [facility] Urea nitrogen [Mass/Vol] 16 mg/dL 7-21 [facility] - Hematology and Cell countson 11-15-2023 Eosinophils (Bld) [#/Vol] 0.19 10*3/uL <0.46 [facility] Immature granulocytes/100 WBC (Bld) 0.2 % [facility] Leukocytes [#/volume] correc shena for nucleated erythrocytes in Blood by Automated counon 11-15-2023 WBC corrected for nucl RBC Auto (Bld) [#/Vol] 5.57 k/uL 3.70-11.00 [facility] Lymphocytes Auto (Bld) [#/Vo l]on 11-15-2023 Lymphocytes (Bld) [#/Vol] 2.43 10*3/uL 1.00-4.00 [facility] Lymphocytes/100 WBC Auto (Bl d)on 11-15-2023 Lymphocytes/100 WBC (Bld) 43.6 % [facility] MCH Auto (RBC) [Entitic mass ]on 11-15-2023 MCH (RBC) [Entitic mass] 31.9 pg 26.0-34.0 [facility] MCHC Auto (RBC) [Mass/Vol]on 11-15-2023 MCHC (RBC) [Mass/Vol] 33.4 g/dL 30.5-36.0 [facility] MCV Auto (RBC) [Entitic vol] on 11-15-2023 MCV (RBC) [Entitic vol] 95.4 fL 80.0-100.0 [facility] Monocytes Auto (Bld) [#/Vol] on 11-15-2023 Monocytes (Bld) [#/Vol] 0.47 10*3/uL <0.87 [facility] Monocytes/100 WBC Auto (Bld) on 11-15-2023 Monocytes/100 WBC (Bld) 8.4 % [facility] Neutrophils Auto (Bld) [#/Vo l]on 11-15-2023 Neutrophils (Bld) [#/Vol] 2.43 10*3/uL 1.45-7.50 [facility] Neutrophils/100 WBC Auto (Bl d)on 11-15-2023 Neutrophils/100 WBC (Bld) 43.7 % [facility] No Panel Informationon 11-14 Estimated GFR (CKD-EPI) 114 mL/min/1.73m??? >=60 [facility] Comment on above: Estimated Glomerular Filtration Rate (eGFR) is calculated using the 2020 CKD-EPI creatinine equation. This equation utilizes serum creatinine, sex, and age as parameters. The creatinine assay has traceable calibration to isotope dilution-mass spectrometry. Refer to KDIGO guidelines for clinical interpretation. In patients with unstable renal function, e.g. those with acute kidney injury, the eGFR may not accurately reflect actual GFR. Immature Granulocyte # (Auto) <0.03 k/uL <0.10 [facility] Nucleated RBC Auto (Bld) [#/ Vol]on 11-15-2023 Nucleated RBC (Bld) [#/Vol] 10*3/uL <0.01 [facility] Nucleated erythrocytes [Pres ence] in Blood by Automated counton 11-15-2023 Nucleated RBC Auto Ql (Bld) 0.0 /100{WBC} [facility] Platelet mean volume Auto (B ld) [Entitic vol]on 11-15-2023 Platelet mean volume (Bld) [Entitic vol] 10.5 fL 9.0-12.7 [facility] Platelets Auto (Bld) [#/Vol] on 11-15-2023 Platelets (Bld) [#/Vol] 201 10*3/uL 150-400 [facility] Protein [Mass/volume] in Ser um or Plasmaon 11-15-2023 Protein [Mass/Vol] 6.9 g/dL 6.3-8.0 [facility] RBC Auto (Bld) [#/Vol]on RBC (Bld) [#/Vol] 3.95 10*6/uL 3.90-5.20 [facility] Serum or plasma anion gap de terminationon 11-15-2023 Anion gap [Moles/Vol] 11 mmol/L 9-18 [facility] ECHOon 11-07-2023 Echocardiography Echocardiography Rep ort: Transthoracic Echo [facility] Date of service: 11/07/2023 1:59: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 Secondary rhythm: PVC. Height: 162.60 cm BSA: 1.54 m Weight: 52.62 kg BMI: 19.9 kg/m Heart rate 80 bpm Blood pressure 106/54 mmHg Color Doppler was utilized to interrogate the cardiac valves assessed in this exam. MEASUREMENTS: Value Indexed Normal Max aortic dimension 2.3 cm Ao < 3.8 Left atrial volume 43 ml (biplane A-L) 28 ml/m Alessia <= 34 LV ID (diastole) 4.0 cm (2D) 2.60 cm/m LV ID (systole) 2.5 cm (2D) 1.65 cm/m IVS, leaflet tips 0.7 cm (2D) Posterior wall thickness 0.8 cm (2D) Left ventricular mass 90 g (2D) 58 g/m LV stroke volume 46 ml (2D 4-ch.) LV end diastolic volume 73 ml (2D 4-ch.) 47.3 ml/m 29<=EDVi<62 LV end systolic volume 27 ml (2D 4-ch.) 17.3 ml/m Ejection Fraction 63 % (2D 4-ch.) EF > 54 FINDINGS: LEFT VENTRICLE The left ventricle is normal in size. Left ventricular systolic function is normal. Indeterminate left ventricular diastolic dysfunction. Wall Motion: All scored segments are normal. RIGHT VENTRICLE The right ventricle is normal in size. Right ventricular systolic function is normal. RV systolic tissue Doppler velocity is 13.0 cm/s. Tricuspid annular displacement is 2.8 cm. Estimated right ventricular systolic pressure is not reported due to an insufficient tricuspid regurgitation signal. Estimated right atrial pressure is 3 mmHg based on IVC assessment. LEFT ATRIUM The left atrial cavity is normal in size. RIGHT ATRIUM The right atrial cavity is normal in size. Inferior Vena Cava: The inferior vena cava appears normal measuring 1.6 cm. The vessel decreases greater than 50 percent with inspiration. MITRAL VALVE There is trace mitral valve regurgitation. There is no thickening. TRICUSPID VALVE The tricuspid valve leaflets are structurally normal. There is trace tricuspid valve regurgitation. AORTIC VALVE There is no aortic valve regurgitation. Aortic morphology is not well visualized. There is no thickening. PULMONIC VALVE The pulmonic valve was not seen or not interrogated. AORTA The visualized aorta is normal in size. Measurements - Mid ascending aorta 2.3 cm. INTERATRIAL SEPTUM There is no evidence of intracardiac shunting as detected by Doppler. INTERVENTRICULAR SEPTUM There is no flow through the interventricular septum as detected by Doppler. PERICARDIUM There is no pericardial effusion. CONCLUSIONS: - Exam indication: Abnormal ECG - The left ventricle is normal in size. Left ventricular systolic function is normal. EF = 63 5% (2D 4-ch.) Indeterminate left ventricular diastolic dysfunction. - The right ventricle is normal in size. Right ventricular systolic function is normal. - The patient has not had a prior CC echocardiographic exam for comparison. * * * Final * * * CC ITDatabase Medical Image : [id number] Normal [facility] CNPMckayla 11-05-2023 CNPN Telephone (CARDAV) ----- ROSA ALONZO ([id number]) 2000 F Date Time Provider Department 11/05/23 SEDRICK RUSHING During your visit today, we recorded the following information about you: Sedrick Rushing MD 11/05/2023 12:39 PM Signed Spoke with Ms Alonzo over the phone. For now, I will wait for the results of the Zio and the Echo and will reach back out. There is a chance that she may need to see EP, but I would like to see how frequently she is in [place]. Allergies As of Date: 11/05/2023 Noted Allergy Reaction METRONIDAZOLE 09/07/2020 1 - Mental Status Change 6 - Diarrhea 8 - GI Upset 4 - Hives 14 - Other: See Comments 2 - Rash 12 - Shortness of Breath 16 - Unknown 11 - Vomiting Date Reviewed: 10/22/2023 Reviewed by: Azael Larson LPN - Fully Assessed Reason for Visit: Patient Question [3527] Cmt: PVCs and Frequent ED visits. Prescriptions as of 11/05/2023 - dicyclomine (BENTYL) 20 mg tablet Take 1 tablet by mouth q 8 HR. - amitriptyline (ELAVIL) 25 mg tablet Take 1 tablet by mouth daily at bedtime. - escitalopram oxalate (LEXAPRO) 10 mg tablet Take 10 mg by mouth once daily. - ondansetron (ZOFRAN) 4 mg tablet Take 4 mg by mouth as needed. Problem List As Of Date 11/05/2023 Noted Resolved Cervicalgia [M54.2] 12/09/2021 Chronic pain of left knee [M25.562, G89.29] 12/09/2021 Chronic left shoulder pain [M25.512, G89.29] 12/09/2021 Recurrent infections [B99.9] 12/09/2021 Urticaria [L50.9] 12/09/2021 Chronic fatigue [R53.82] 12/09/2021 Bilateral arm pain [M79.601, M79.602] 12/08/2022 Chronic bilateral low back pain without sciatic*12/08/2022 Abnormal findings on imaging test [R93.89] 12/08/2022 Photosensitivity [L56.8] 12/08/2022 Encounter Status:Closed by SEDRICK RUSHING on 11/05/23 [facility] CNPMckayla 10-30-2023 CNPN Telephone (CARDAV) ----- ROSA ALONZO ([id number]) 2000 F Date Time Provider Department 10/30/23 SEDRICK RUSHING During your visit today, we recorded the following information about you: Juanis Cabello RN 10/30/2023 11:14 AM Signed The pt is calling. Please review the my chart message from today for an EKG attachment she sent from her ED visit last night. She went to [facility]. Are you able to revue her Zio patch from yesterday around 1147? It was at this time she was experiencing some SOB and irregular beats. Another time was at 1559. She does not have a follow up appt with you. Please advise further. You may call her back at the number listed in contacts and may leave a message. Thank you eVro Romero RN 11/01/2023 9:57 AM Signed Patient calling See message below Same, ongoing symptoms Staying hydrated Concerned Call CELL [phone] Leave Detailed messages Chichi Monroy, RN 11/01/2023 3:25 PM Signed Called and spoke to patient per below and explained we cannot see zio results live, and that once it is mailed back it may take a week or two before we have results. Reassured her that ED physician wouldn't have let her leave if her EKG was abnormal/concerning and that she shouldn't focus on what the computer interpretation says if that is why she is worried. She denies CP. She states what concerns her is that during her visit to the ED she had an emesis which is strange for her. She said Dr. Rushing already cleared her for upcoming surgery, however she knows the zio caught whatever event she had. She mentions SOB as well as feeling dizzy/LH briefly. She hopes he will review her zio results prior to her surgery as it would give her more piece of mind. I told her to f/u with us on 11/15 to see if results are in if she hasn't already heard from us, as her surgery is on 11/20. Allergies As of Date: 10/30/2023 Noted Allergy Reaction METRONIDAZOLE 09/07/2020 1 - Mental Status Change 6 - Diarrhea 8 - GI Upset 4 - Hives 14 - Other: See Comments 2 - Rash 12 - Shortness of Breath 16 - Unknown 11 - Vomiting Date Reviewed: 10/22/2023 Reviewed by: Azael Larson LPN - Fully Assessed Reason for Visit: Palpitations [79] ED pt update [Other] Prescriptions as of 11/01/2023 - dicyclomine (BENTYL) 20 mg tablet Take 1 tablet by mouth q 8 HR. - amitriptyline (ELAVIL) 25 mg tablet Take 1 tablet by mouth daily at bedtime. - escitalopram oxalate (LEXAPRO) 10 mg tablet Take 10 mg by mouth once daily. - ondansetron (ZOFRAN) 4 mg tablet Take 4 mg by mouth as needed. Problem List As Of Date 10/30/2023 Noted Resolved Cervicalgia [M54.2] 12/09/2021 Chronic pain of left knee [M25.562, G89.29] 12/09/2021 Chronic left shoulder pain [M25.512, G89.29] 12/09/2021 Recurrent infections [B99.9] 12/09/2021 Urticaria [L50.9] 12/09/2021 Chronic fatigue [R53.82] 12/09/2021 Bilateral arm pain [M79.601, M79.602] 12/08/2022 Chronic bilateral low back pain without sciatic*12/08/2022 Abnormal findings on imaging test [R93.89] 12/08/2022 Photosensitivity [L56.8] 12/08/2022 Encounter Status:Closed by CHICHI MONROY on 11/01/23 [facility] CNPNon 10-23-2023 CNPN Telephone ([facility]) ----- ROSA ALONZO ([id number]) 2000 F Date Time Provider Department 10/23/23 SEEMA DAVIS [facility] During your visit today, we recorded the following information about you: Daxa Gray, RN 10/23/2023 1:[address] Sedrick Rushing's office for cardiac clearance at [phone]. Abnormal heart sounds with gallbladder consult on 10/19/23. Received confirmation. Sent to scanning Allergies As of Date: 10/23/2023 Noted Allergy Reaction METRONIDAZOLE 09/07/2020 1 - Mental Status Change 6 - Diarrhea 8 - GI Upset 4 - Hives 14 - Other: See Comments 2 - Rash 12 - Shortness of Breath 16 - Unknown 11 - Vomiting Date Reviewed: 10/22/2023 Reviewed by: Azael Larson LPN - Fully Assessed Reason for Visit: Cardiac Clearance [0379] Prescriptions as of 10/23/2023 - dicyclomine (BENTYL) 20 mg tablet Take 1 tablet by mouth q 8 HR. - amitriptyline (ELAVIL) 25 mg tablet Take 1 tablet by mouth daily at bedtime. - escitalopram oxalate (LEXAPRO) 10 mg tablet Take 10 mg by mouth once daily. - ondansetron (ZOFRAN) 4 mg tablet Take 4 mg by mouth as needed. Problem List As Of Date 10/23/2023 Noted Resolved Cervicalgia [M54.2] 12/09/2021 Chronic pain of left knee [M25.562, G89.29] 12/09/2021 Chronic left shoulder pain [M25.512, G89.29] 12/09/2021 Recurrent infections [B99.9] 12/09/2021 Urticaria [L50.9] 12/09/2021 Chronic fatigue [R53.82] 12/09/2021 Bilateral arm pain [M79.601, M79.602] 12/08/2022 Chronic bilateral low back pain without sciatic*12/08/2022 Abnormal findings on imaging test [R93.89] 12/08/2022 Photosensitivity [L56.8] 12/08/2022 Encounter Status:Closed by DAXA GRAY on 10/23/23 Normal [facility] CNPN Telephone ([facility]) ----- ROSA ALONZO ([id number]) 2000 F Date Time Provider Department 10/23/23 SEDRICK RUSHING During your visit today, we recorded the following information about you: Wilfredo Avila OCCA 10/23/2023 1:53 PM Signed Received form requesting cardiac evaluation for surgical clearance from [facility] General Surgery with Dr. Seema Davis. Surgery Date: 11-21-2023 Fax to [facility] General Surgery: [phone] Rushing to review. CHATO Ramirez Cynthia, OCCA 12/07/2023 4:[address] Rushing filled out Cardiac Clearance Form. Faxed to [facility] Surgery at [phone]. Scanned into chart. CHATO Ramirez Allergies As of Date: 10/23/2023 Noted Allergy Reaction METRONIDAZOLE 09/07/2020 1 - Mental Status Change 6 - Diarrhea 8 - GI Upset 4 - Hives 14 - Other: See Comments 2 - Rash 12 - Shortness of Breath 16 - Unknown 11 - Vomiting Date Reviewed: 10/22/2023 Reviewed by: Azael Larson LPN - Fully Assessed Reason for Visit: Cardiac Clearance [4105] Prescriptions as of 12/07/2023 - dicyclomine (BENTYL) 20 mg tablet Take 1 tablet by mouth q 8 HR. - escitalopram oxalate (LEXAPRO) 10 mg tablet Take 5 mg by mouth once daily. - ondansetron (ZOFRAN) 4 mg tablet Take 4 mg by mouth as needed. Problem List As Of Date 10/23/2023 Noted Resolved Cervicalgia [M54.2] 12/09/2021 Chronic pain of left knee [M25.562, G89.29] 12/09/2021 Chronic left shoulder pain [M25.512, G89.29] 12/09/2021 Recurrent infections [B99.9] 12/09/2021 Urticaria [L50.9] 12/09/2021 Chronic fatigue [R53.82] 12/09/2021 Bilateral arm pain [M79.601, M79.602] 12/08/2022 Chronic bilateral low back pain without sciatic*12/08/2022 Abnormal findings on imaging test [R93.89] 12/08/2022 Photosensitivity [L56.8] 12/08/2022 Encounter Status:Closed by WILFREDO AVILA on 10/23/23 Normal [facility] CNOVon 10-22-2023 CNOV Office Visit ([facility] ) ----- ROSA ALONZO ([id number]) 2000 F Date Time Provider Department 10/22/23 3:00 PM SEDRICK RUSHING During your visit today, we recorded the following information about you: Pulse Blood pressure Weight Height 40/minute 102/62 52.6 kg 1.626 m Sedrick Rushing MD 10/22/2023 3:17 PM Signed [facility] Department of Cardiovascular Medicine SECTION OF [facility] CARDIOLOGY OUTPATIENT VISIT DATE October 21, 2023 OUTPATIENT VISIT TYPE NEW CONSULTATION PRIMARY CARE PHYSICIAN: Analia Holliday [address] [place] [address] CHIEF COMPLAINT: Palpitations HISTORY OF PRESENT ILLNESS: Ms. Alonzo is a pleasant 22 year old female here for cardiovascular evaluation. She has no personal cardiac history. She is currently being worked up for a possible Laparoscopic cholecystectomy with cholangiogram. The following portions of the patient's history were reviewed and updated as appropriate, allergies, current medications, past medical, social, surgical, and family history and problem list. PAST MEDICAL HISTORY Diagnosis Date Pancreatitis PAST SURGICAL HISTORY Procedure Laterality Date COLONOSCOPY EGD FAMILY HISTORY Problem Relation Age of Onset Colon Cancer No Family History Social History Tobacco Use Smoking status: Former Smokeless tobacco: Never Vaping Use Vaping Use: Never used Substance Use Topics Alcohol use: Not Currently Drug use: Not Currently ALLERGIES Allergen Reactions Metronidazole Mental Status Change, Diarrhea, GI Upset, Hives, Other: See Comments, Rash, Shortness of Breath, Unknown, Vomiting CURRENT MEDICATIONS: bcgtqw-uejqnfdv-uezbpls (CREON) 24,000-76,000 -120,000 unit delayed release capsule Take 2 capsules by mouth two times a day with meals. dicyclomine (BENTYL) 20 mg tablet Take 1 tablet by mouth q 8 HR. amitriptyline (ELAVIL) 25 mg tablet Take 1 tablet by mouth daily at bedtime. escitalopram oxalate (LEXAPRO) 10 mg tablet Take 10 mg by mouth once daily. ondansetron (ZOFRAN) 4 mg tablet Take 4 mg by mouth as needed. I have personally interviewed, confirmed and edited the above information if obtained by others. Physical Exam LMP 10/18/2023 (Exact Date) Gen: alert, no acute distress HEENT: normocephalic, atraumatic, no rinorrhea, no congestion, normal hearing, EOMI, no eye discharge Heart: no murmurs, S1/S2+, regular rate and rhythm Lungs: no wheezing, no rales, symmetric expansion, nonlabored Abdomen: soft, nontender, nondistended Musculoskeletal: no edema, nontender Neurological: no focal deficits, alert, oriented Psychatric: cooperative, appropriate Pertinent Diagnostics/Labs/Data reviewed (ECGs and echo listed personally reviewed today or prior) and include: Assessment AND Plan Preoperative Cardiovascular Examination Palpitations Impression: This is a 22 yo female without any personal cardiac history. EKG 10/19/23: NSR with Sinus Arrhythmia and an iRBBB Plan: - Vitals today: BP of 102/62 and a HR of 40 - Not currently on any cardiac medications - Will order an echo and a Zio for now - Will say that for now none of the above tests should prohibit her going forward with her surgery - She is deemed intermediate risk for this intermediate risk surgery - No further testing is needed prior to the surgery - At the time of this is examination she is deemed optimized from a cardiac standpoint. Current Outpatient Medications on File Prior to Visit Medication Sig xwedvt-nfxawuki-hchldve (CREON) 24,000-76,000 -120,000 unit delayed release capsule Take 2 capsules by mouth two times a day with meals. dicyclomine (BENTYL) 20 mg tablet Take 1 tablet by mouth q 8 HR. amitriptyline (ELAVIL) 25 mg tablet Take 1 tablet by mouth daily at bedtime. escitalopram oxalate (LEXAPRO) 10 mg tablet Take 10 mg by mouth once daily. ondansetron (ZOFRAN) 4 mg tablet Take 4 mg by mouth as needed. No current facility-administered medications on file prior to visit. Return in 3 months with communication in between if symptoms or changes occur. Thank you, CONTACT INFORMATION: Sedrick Rushing MD Cardiovascular Medicine Staff [facility] [id number] [place] [address]. [place] [address] Azael Larson LPN 10/22/2023 3:33 PM Signed EVENT MONITOR DISPOSABLE PATCH INSTRUCTIONS Patient Name: Rosa Alonzo Clinic Number: [id number] Skin prepped and cleansed with alcohol Patch secured to prepped area Monitor Activated Serial #: [id number] Patient Instructed: Prescribed order timeframe Bathing guidelines Usage of event button and diary documentation Return of monitor at the end of prescribed order Call with problems [phone] or [phone] ext. [phone] (more content not included)... Normal [facility] CNOVon 10-19-2023 CNOV Office Visit ([facility] ) ----- CLINTONROSA Newberry Roland ([id number]) 2000 F Date Time Provider Department 10/19/23 2:20 PM SEEMA DAVIS [facility] During your visit today, we recorded the following information about you: Temperature Pulse Blood pressure Weight 98.2 degrees 76/minute 109/68 52.9 kg Height Last Period 1.646 m 10/18/23 Seema Davis MD 10/21/2023 9:18 PM Signed CC: RUQ pain HPI: This is a 22 year old female referred by Dr Menon for above; recommendations will be communicated via shared medical record or US Mail. Starting in 2019, she began having GI symptoms including nausea, diarrhea, etc. This evolved into right shoulder pain, right upper back pain, and epigastric and RUQ pain. These symptoms are worse with eating, especially heavy foods. US was negative. CT showed possibility of median arcuate ligament syndrome. Currently, she complains of RUQ pain radiating to right flank and right periscapular pain. EUS showed gallbladder polyp. She has had one episode of acute pancreatitis in 2016. PAST MEDICAL HISTORY Diagnosis Date Pancreatitis PAST SURGICAL HISTORY Procedure Laterality Date COLONOSCOPY EGD Current Outpatient Medications on File Prior to Visit Medication Sig dicyclomine (BENTYL) 20 mg tablet Take 1 tablet by mouth q 8 HR. escitalopram oxalate (LEXAPRO) 10 mg tablet Take 10 mg by mouth once daily. ondansetron (ZOFRAN) 4 mg tablet Take 4 mg by mouth as needed. hicgvj-gbqfbsqt-xsfujkk (CREON) 24,000-76,000 -120,000 unit delayed release capsule Take 2 capsules by mouth two times a day with meals. amitriptyline (ELAVIL) 25 mg tablet Take 1 tablet by mouth daily at bedtime. No current facility-administered medications on file prior to visit. 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 Lives with her . Family History Reviewed Including Cardiac Diseases, Psychiatric Diseases, AND Substance Abuse Problem: Colon Cancer Relation: No Family History Age of Onset: (Not Specified) REVIEW OF SYSTEMS PAIN ASSESSMENT: Negative for pain, history of chronic pain, or current treatment for a chronic pain condition. RESPIRATORY: Negative for cough, hemoptysis, wheezing, COPD, dyspnea or shortness of breath CARDIOVASCULAR: Occasional palpitations GI: See HPI : No history of dysuria, frequency or incontinence SKIN: Negative for lesions, rash, and itching NEURO: No history of headaches, syncope, paralysis, seizures or tremors Exam: NAD No scleral icterus Lungs: CTAB Heart: Rhythm seems to be bigeminy, with what appears to be two beats immediately adjacent. No murmurs. Abd: Soft, no masses. +RUQ tenderness. Extr: No edema Neuro: Nonfocal exam, normal gait CT images reviewed A/P: Symptoms most likely consistent with acalculous cholecystitis. Recommend lap cholecystectomy. Procedure, risks, benefits, alternatives discussed including risks of bleeding, infection, bowel or bile duct injury, conversion to open, postoperative bile leak. Postoperative diarrhea also discussed. She agrees to proceed. If symptoms not relieved with this procedure, then evaluation of median arcuate ligament syndrome could be considered, since current symptoms aren't consistent with this. Given possible arrhythmia, will obtain EKG and obtain cardiology consult prior to surgery. I spent a total of 35 minutes on the date of the service which included bpwf-wa-dknp patient care, completing clinical documentation, obtaining and/or reviewing separately obtained history, performing a medically appropriate examination, counseling and educating the patient/family/caregiver, and independently interpreting results (not separately reported). Seema Davis MD . Daxa Gray RN 10/21/2023 9:18 PM Signed New patient consult for gallbladder. Referred by Dr. Sinan MD. General note: A 22 year old female seen by gastroenterology on 06/06/23. C/c: RU ABD pain radiates to back AND acute pancreatitis. 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 This measurement is within normal limits Referring Provider: SEEMA DAVIS [[id number]] Allergies As of Date: 10/19/2023 Noted Allergy Reaction METRONIDAZOLE 09/07/2020 1 - Mental Status Change 6 - Diarrhea 8 - GI Upset 4 - Hives 14 - Other: See Comments 2 - Rash 12 - Shortness of Breath 16 - Unknown 11 - Vomiting Date Reviewed: 10/19/2023 (more content not included)... [facility] ECG COMPLETEon 10-19-2023 ECG COMPLETE Ventricular Rate : 6 7 BPM Atrial Rate : 67 BPM P-R Interval : 160 ms QRS Duration : 94 ms Q-T Interval : 402 ms QTC Calculation(Bazett) : 424 ms Calculated P [place] : 76 degrees Calculated R [place] : 37 degrees Calculated T [place] : 57 degrees NORMAL SINUS RHYTHM WITH SINUS ARRHYTHMIA POSSIBLE LEFT ATRIAL ENLARGEMENT RSR' PATTERN IN V1 SUGGESTS INCOMPLETE RIGHT BUNDLE BRANCH BLOCK BORDERLINE ECG NO PREVIOUS ECGS AVAILABLE Confirmed by JENNIFER SURESH MD ([id number]) on 10/22/2023 1:00:28 PM NAME : ROSA ALONZO PID : [id number] : 2000 Gender : Female Race : ORD : [id number] Procedure Date : Oct 19 2023 14:37:15 Edit Date : Oct 22 2023 13:00:33 Diagnosis: NORMAL SINUS RHYTHM WITH SINUS ARRHYTHMIA POSSIBLE LEFT ATRIAL ENLARGEMENT RSR' PATTERN IN V1 SUGGESTS INCOMPLETE RIGHT BUNDLE BRANCH BLOCK BORDERLINE ECG NO PREVIOUS ECGS AVAILABLE Confirmed by JENNIFER SURESH MD ([id number]) on 10/22/2023 1:00:28 PM Test Reason : SVT Location : 667 : [facility] Overread By : JENNIFER SURESH MD Edited By : JENNIFER SURESH MD Referred By : SEEMA DAVIS Acquired by : [id number], Normal [facility] Christine 09-11-2023 CNPN Telephone ([facility]) ----- CLINTONROSA Newberry Roland ([id number]) 2000 F Date Time Provider Department 09/11/23 ISABELLE MENON During your visit today, we recorded the following information about you: Zo Cuevas 09/11/2023 3:09 PM Signed Patient calling to see if she is to follow up with Dr. Menon. He did recommend surgeon consult for cholecystectomy. Patient is asking for referral Please adivse patient Gisela Ponce RN 09/11/2023 4:25 PM Signed Please refer to [facility] dated 09/11/2023. Gisela Ponce RN Allergies As of Date: 09/11/2023 Noted Allergy Reaction METRONIDAZOLE 09/07/2020 1 - Mental Status Change 6 - Diarrhea 8 - GI Upset 4 - Hives 14 - Other: See Comments 2 - Rash 12 - Shortness of Breath 16 - Unknown 11 - Vomiting Date Reviewed: 09/06/2023 Reviewed by: Mckenzie Segura RN - Fully Assessed Reason for Visit: Patient Update [1234] Prescriptions as of 09/11/2023 - hoagxg-vxzezako-pfudgrd (CREON) 24,000-76,000 -120,000 unit delayed release capsule Take 2 capsules by mouth two times a day with meals. - dicyclomine (BENTYL) 20 mg tablet Take 1 tablet by mouth q 8 HR. - amitriptyline (ELAVIL) 25 mg tablet Take 1 tablet by mouth daily at bedtime. - escitalopram oxalate (LEXAPRO) 10 mg tablet Take 10 mg by mouth once daily. - ondansetron (ZOFRAN) 4 mg tablet Take 4 mg by mouth as needed. Problem List As Of Date 09/11/2023 Noted Resolved Cervicalgia [M54.2] 12/09/2021 Chronic pain of left knee [M25.562, G89.29] 12/09/2021 Chronic left shoulder pain [M25.512, G89.29] 12/09/2021 Recurrent infections [B99.9] 12/09/2021 Urticaria [L50.9] 12/09/2021 Chronic fatigue [R53.82] 12/09/2021 Bilateral arm pain [M79.601, M79.602] 12/08/2022 Chronic bilateral low back pain without sciatic*12/08/2022 Abnormal findings on imaging test [R93.89] 12/08/2022 Photosensitivity [L56.8] 12/08/2022 Encounter Status:Closed by GISELA PONCE on 09/11/23 [facility] ANES POSTPROC EVALon 024 ANES POSTPROC EVAL HNO ID: [id number] Author: CIPRIANO PIMENTEL MD Service: Anesthesiology Author Type: Anesthesiologist Type: Anesthesia Postprocedure Evaluation Filed: 09/06/2023 13:55 Note Text: POST ANESTHESIA EVALUATION NOTE : 2000 Procedure Summary Date: 09/06/23 Room / Location: [facility] Endoscopy - ENDO Anesthesia Start: 1244 Anesthesia Stop: 1327 Procedure: EGD - THERAPEUTIC, EUS, OR TUBE INTERVENTIONS Diagnosis: Chronic recurrent pancreatitis (HCC) Scheduled Providers: Isabelle Menon MD; Cipriano Pimentel MD; Elif Hess APRN.NURSERY RN Responsible Provider: Cipriano Pimentel MD Anesthesia Type: MAC ASA Status: 2 Anesthesia Type: MAC Last Vitals Vitals Value Taken Time BP 101/76 09/06/23 1345 Temp 36.2 ?C (97.2 ?F) 09/06/23 1327 HR SpO2 65 09/06/23 1353 Resp 18 09/06/23 1355 SpO2 99 % 09/06/23 1353 Vitals shown include unfiled device data. Post Anesthesia Patient Status Patient Evaluation: PACU. PACU/ICU Patient Condition: stable. Anticipated Disposition: phase 2 then home. Neurological Status: aware and responsive. Pulmonary Status: breathing comfortably on room air Airway Control: returned to baseline unsupported. Cardiovascular Status: stable. Pain Management: clinically adequate - multimodal analgesia pain management approach Postoperative Hydration: acceptable. Intraoperative Events: no significant anesthesia events Recommendation: continue current plan of care. Anesthesia Observations No Documentation SIGNATURE: Cipriano Pimentel MD PATIENT NAME: Rosa Alonzo DATE: September 06, 2023 TIME: 1:55 PM CSN: [id number] Normal [facility] ANES PRE-OPon 09-06-2023 ANES PRE-OP HNO ID: [id number] Author: CIPRIANO PIMENTEL MD Service: Anesthesiology Author Type: Anesthesiologist Type: Anesthesia Preprocedure Evaluation Filed: 09/06/2023 10:56 Note Text: ANESTHESIOLOGY DAY OF SURGERY NOTE : 2000 Procedure Information Date/Time: 09/06/23 1130 Scheduled providers: Isabelle Menon MD; Cipriano Pimentel MD; Elif Hess APRN.NURSERY RN Procedure: EGD - THERAPEUTIC, EUS, OR TUBE INTERVENTIONS Location: [facility] Endoscopy - ENDO Estimated body mass index is 19.4 kg/m? as calculated from the following: Height as of 05/22/23: 162.6 cm (5' 4 ). Weight as of 06/06/23: 51.3 kg (113 lb). Most recent hematocrit and potassium results: Hematocrit 41.7 03/16/2023 Potassium 4.4 03/16/2023 Relevant Problems No relevant active problems I - PHYSICAL EVALUATION AIRWAY Patient intubated: No. Tracheostomy tube not present Mallampati: II. TM distance: >3 FB. Neck ROM: full ROM without neurological symptoms. Mouth opening: adequate. Short neck: no. Thick neck: no DENTAL Normal dental observations. Dental findings: teeth intact. Additional exam findings: no II - ANESTHESIA PLAN ASA Score: 2 Anesthetic Plan: MAC The patient is not a current smoker. NPO Status: adequate Anesthetic plan additional comments: Symptoms of Sleep Apnea: Denies Previous Anesthesia: No history of adverse event Family history of anesthetic problems: None Functional Capacity Assessment:Denies chest pain and SOB with exertion. Denies change in functional capacity. History of GERD: No Most recent lab results: Hemoglobin 14.1 03/16/2023 Hematocrit 41.7 03/16/2023 Potassium 4.4 03/16/2023 Platelet Count 196 03/16/2023 Creatinine 0.71 03/16/2023 . Beta Michelle Monitoring Plan Monitoring plan: Standard ASA. Post Procedure Analgesic Plan Postoperative analgesic plan: parenteral or oral opioids and multimodal analgesia. Informed Consent Anesthetic risks, benefits, alternatives, personnel and consent discussed: yes. Patient / Responsible Democrat agrees to proceed: yes Patient / Surrogate agrees to blood products: Yes DNR status not reviewed with patient and/or family prior to surgery. Significant changes in the patient condition since the History and Physical, not otherwise documented in primary service progress note: no. Potential Anesthesia issues that may suggest increased risk of complications or contraindication to planned procedure: none. No vitals data found for the desired time range. Outpatient Medications as of 09/06/2023 Medication Sig - escitalopram oxalate (LEXAPRO) 10 mg tablet Take 10 mg by mouth once daily. - hxoosm-shmgdrey-qxnxhpw (CREON) 24,000-76,000 -120,000 unit delayed release capsule Take 2 capsules by mouth two times a day with meals. - dicyclomine (BENTYL) 20 mg tablet Take 1 tablet by mouth q 8 HR. - amitriptyline (ELAVIL) 25 mg tablet Take 1 tablet by mouth daily at bedtime. - ondansetron (ZOFRAN) 4 mg tablet Take 4 mg by mouth as needed. No current facility-administered medications on file as of 09/06/2023. I have interviewed and examined the patient. I have reviewed the medical record and/or the pre-anesthesia evaluation, pertinent labs, and test results. This contains updated information obtained within 48 hours of Surgery/Procedure. SIGNATURE: Cipriano Pimentel MD PATIENT NAME: Rosa Alonzo DATE: September 06, 2023 TIME: 10:54 AM [facility] [id number] [facility] Telephone ([facility]) ----- CLINTONROSA Newberry Roland ([id number]) 2000 F Date Time Provider Department 09/06/23 ISABELLE MENON During your visit today, we recorded the following information about you: Allergies As of Date: 09/06/2023 Noted Allergy Reaction METRONIDAZOLE 09/07/2020 1 - Mental Status Change 6 - Diarrhea 8 - GI Upset 4 - Hives 14 - Other: See Comments 2 - Rash 12 - Shortness of Breath 16 - Unknown 11 - Vomiting Date Reviewed: 09/06/2023 Reviewed by: Mckenzie Segura RN - Fully Assessed Prescriptions as of 09/06/2023 - ojedoi-xqkbraeg-zwwwakd (CREON) 24,000-76,000 -120,000 unit delayed release capsule Take 2 capsules by mouth two times a day with meals. - dicyclomine (BENTYL) 20 mg tablet Take 1 tablet by mouth q 8 HR. - amitriptyline (ELAVIL) 25 mg tablet Take 1 tablet by mouth daily at bedtime. - escitalopram oxalate (LEXAPRO) 10 mg tablet Take 10 mg by mouth once daily. - ondansetron (ZOFRAN) 4 mg tablet Take 4 mg by mouth as needed. Problem List As Of Date 09/06/2023 Noted Resolved Cervicalgia [M54.2] 12/09/2021 Chronic pain of left knee [M25.562, G89.29] 12/09/2021 Chronic left shoulder pain [M25.512, G89.29] 12/09/2021 Recurrent infections [B99.9] 12/09/2021 Urticaria [L50.9] 12/09/2021 Chronic fatigue [R53.82] 12/09/2021 Bilateral arm pain [M79.601, M79.602] 12/08/2022 Chronic bilateral low back pain without sciatic*12/08/2022 Abnormal findings on imaging test [R93.89] 12/08/2022 Photosensitivity [L56.8] 12/08/2022 Encounter Status:Closed by ISABELLE MENON on 09/06/23 [facility] EGD Study observation Narrat iveon 09-06-2023 [facility] HISTORY PHYSICALon HISTORY PHYSICAL HNO ID: [id number] Author: ISABELLE MENON MD Service: Gastroenterology Author Type: Physician Type: H&P Filed: 09/06/2023 12:22 Note Text: PROCEDURAL SEDATION HISTORY AND PHYSICAL EXAM SERVICE DATE: 09/06/2023 SERVICE TIME: 12:20 PM Subjective HPI: This is a 22 year old female who presents Endoscopic ultrasound with fine needle aspiration PAST ANESTHESIA HISTORY: No history of adverse event PAST MEDICAL HISTORY Diagnosis Date Pancreatitis PAST SURGICAL HISTORY Procedure Laterality Date COLONOSCOPY EGD Prior to Admission medications as of 09/06/23 1051 Medication Sig Last Dose Taking escitalopram oxalate (LEXAPRO) 10 mg tablet Take 10 mg by mouth once daily. 09/05/2023 at 1000 Yes mstqfi-ppssotyu-cjtyieb (CREON) 24,000-76,000 -120,000 unit delayed release capsule Take 2 capsules by mouth two times a day with meals. dicyclomine (BENTYL) 20 mg tablet Take 1 tablet by mouth q 8 HR. Unknown amitriptyline (ELAVIL) 25 mg tablet Take 1 tablet by mouth daily at bedtime. ondansetron (ZOFRAN) 4 mg tablet Take 4 mg by mouth as needed. 09/04/2023 ALLERGIES Allergen Reactions Metronidazole Mental Status Change, Diarrhea, GI Upset, Hives, Other: See Comments, Rash, Shortness of Breath, Unknown, Vomiting Objective PHYSICAL EXAM: The remainder of the physical exam is noncontributory. AIRWAY: LUNGS: CARDIAC: , Assessment/Plan ASA Class: Active Problems: * No active hospital problems. * Resolved Problems: * No resolved hospital problems. * Medication and Non-Pharmacologic VTE Prophylaxis/Anticoagulant s VTE Prophylaxis: VTE prophylaxis appropriate Provisional Diagnosis/Treatment Plan: Pancreatitis, RUQ abdominal pain. SIGNATURE: Isabelle Menon MD PATIENT NAME: Rosa Alonzo DATE: September 06, 2023 TIME: 12:20 PM Normal [facility] NURSING PROGon 09-06-2023 NURSING PROG HNO ID: [id number] Author: RICKIE GU RN Service: Nursing Author Type: Registered Nurse Type: Nursing Progress Note Filed: 09/06/2023 14:11 Note Text: 1345 Pt in Endo RR in satisfactory condition Pt denies c/o pain/discomfort 1345 Discharge instructions given to patient 1400 Dr. Menon at bedside speaking with patient and her mother All questions/concerns addressed 1345 Pt sitting up and drinking fluids without incident 1410 Left Endo in satisfactory condition Rickie Gu, RN [facility] NURSING PROG HNO ID: [id number] Author: RICKIE GU RN Service: Nursing Author Type: Registered Nurse Type: Nursing Progress Note Filed: 09/06/2023 10:57 Note Text: PATIENT EDUCATION TOPIC: PROCEDURE / SURGERY: Procedure/Surgery: EGD/EUS PATIENT NAME: Rosa Alonzo PATIENT LOCATION: Room/bed info not found READINESS TO LEARN COGNITIVE ABILITY: Alert and oriented MOTIVATION TO LEARN: Interested FAMILY SUPPORT: High - Very involved in pt care INSTRUCTION PROVIDED TO: Patient PATIENT LEARNS BEST BY: Individual Instruction FACTORS AFFECTING LEARNING: None PHYSICAL LIMITATIONS AFFECTING LEARNING: None LEARNING RESPONSE DIAGNOSIS: ADULT: PATIENT/FAMILY RESPONSE: Verbalizes understanding of: PRE-PROCEDURE INSTRUCTIONS-Correct action to take to follow pre-procedure instructions METHOD OF INSTRUCTION: Individual instruction FOLLOW-UP PLAN: Complete - No need for follow-up INSTRUCTIONAL AIDS USED: NA SUPPLEMENTAL MATERIAL PROVIDED TO PATIENT: None REFERRAL (RECOMMENDATION): None Electronically Signed By: Rickie Gu [facility] Upper EUSon 09-06-2023 Upper EUS [facility] Gastrointestinal Endoscopy Patient Name: Rosa Alonzo Procedure Date: 09/06/2023 12:16 PM Date of : 2000 Admit Type: Outpatient Age: 22 Room: [place] [address] Gender: Female Note Status: Finalized Attending MD: Isabelle Menon MD, [id number] Procedure: Upper EUS Indications: Abnormal abdominal/pelvic CT scan, Acute pancreatitis, 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 Chronic RUQ pain radiating to the back. RUQ US and HIDA scan with CCK normal. Pancreatitis age 14 of unclear aetiology. Providers: Isabelle Menon MD, Gwen Ornelas, VIRGILIO, Chrissie Forbes, VIRGILIO, Felix Vick RN (Assisting Nurse) Patient Profile: This is a 22 year old female. Refer to note in patient chart for documentation of history and physical. Referring Physician: Isabelle Menon MD (Referring MD) Medicines: Monitored Anesthesia Care Complications: No immediate complications. Procedure: Pre-Anesthesia Assessment: - Prior to the procedure, a History and Physical was performed, and patient medications and allergies were reviewed. The patient's tolerance of previous anesthesia was also reviewed. The risks and benefits of the procedure and the sedation options and risks were discussed with the patient. All questions were answered, and informed consent was obtained. Prior Anticoagulants: The patient has taken no anticoagulant or antiplatelet agents. ASA Grade Assessment: II - A patient with mild systemic disease. After reviewing the risks and benefits, the patient was deemed in satisfactory condition to undergo the procedure. After obtaining informed consent, the endoscope was passed under direct vision. Throughout the procedure, the patient's blood pressure, pulse, and oxygen saturations were monitored continuously. The was introduced through the mouth, and advanced to the second part of duodenum. The upper EUS was accomplished without difficulty. The patient tolerated the procedure well. Moderate Sedation: MAC anesthesia was administered by the anesthesia team. Total Procedure Duration: 0 hours 29 minutes 33 seconds Findings: ENDOSONOGRAPHIC FINDING: : There was no sign of significant endosonographic abnormality in the main pancreatic duct. The pancreatic duct measured up to 1 mm in diameter. The pancreas was well visualized, no pathologic lymphadenopathy, no calcifications, the pancreatic duct was thin in caliber. There was no sign of significant endosonographic abnormality in the left lobe of the liver and in the right lobe of the liver. A hypoechoic polyp was identified endosonographically in the gallbladder body. The polyp measured 8 mm with central calcification causing shaddowing. The celiac trunk was mildly to moderately stenotic, as visualized endosonographically. Impression: - There was no sign of significant pathology in the main pancreatic duct. - There was no evidence of significant pathology in the left lobe of the liver and in the right lobe of the liver. - A polyp was found in the gallbladder body. - The celiac trunk was stenotic, as visualized endosonographically. - No specimens collected. Recommendation: - Discharge patient to home (ambulatory). - Resume regular diet. - Continue present medications. - Refer to a surgeon at appointment to be scheduled for cholecystectomy. 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 All rights reserved. The codes documented in this report are preliminary and upon bilingual customer service review may be revised to meet current compliance requirements. Attending Participation: I personally performed the entire procedure. Scope In: 12:53:03 PM Scope Out: 1:22:36 PM MD Isabelle Cedeno MD 09/06/2023 3:29:47 PM This report has been signed electronically by Isabelle Menon MD Number of Addenda: 0 Note Initiated On: 09/06/2023 12:16 PM Estimated Blood Loss: Estimated blood loss: none. Normal [facility] CNCOon 07-30-2023 CNCO Letter Text Normal [facility] CNPNon 07-13-2023 CNPN Telephone ([place]) ----- CLINTONROSA Roland ([id number]) 2000 F Date Time Provider Department 07/13/23 ISABELLE MENON During your visit today, we recorded the following information about you: Gisela Ponce RN 07/13/2023 9:08 AM Signed ----- Message from Isabelle Menon MD sent at 07/12/2023 10:22 PM EST ----- CTA results were reviewed.: Celiac artery showed likely physiological extrinsic compression by the median arcuate ligament, more pronounced in the expiratory than the inspiratory phase. 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 When was her last EGD and colonoscopy done? Schedule patient for EUS, linear. MD Kris Medrano Dawn, VIRGILIO 07/13/2023 9:57 AM Signed Anabel, please schedule EUS as indicated below. Thank you, Gisela Ponce RN 08/15/2022 Colonoscopy with FMT: Impression: Unremarkable colon examination. No ulceration, no pseudomembrane seen. Successful positioning of 140 g of stool donor mixed with 350 mL of normal saline. Gisela Ponce RN 07/13/2023 2:[address] Menon, please see msgs below regarding EGD and colonoscopy. Thank you, VIRGILIO Vazquez Khaled, MD 07/13/2023 3:20 PM Signed Will make a decision on EGD AND colonoscopy after EUS. MD Edin Medrano Jennifer, MA 07/20/2023 12:15 PM Signed Voicemail received from patient. Calling to schedule her EUS. Please call her at [phone]. Mena Adm AsstAnabel II 07/30/2023 11:20 AM Signed Attempted to call patient regarding scheduling EUS, no answer, left message for patient to call back to schedule. Anabel San Adm Asst II Mena Beard AssAnabel warren II 07/30/2023 11:23 AM Signed Patient returned call, scheduled EUS , 09/06/2023 at [facility]. Anabel Mena Adm Asst II Allergies As of Date: 07/13/2023 Noted Allergy Reaction METRONIDAZOLE 09/07/2020 1 - Mental Status Change 6 - Diarrhea 8 - GI Upset 4 - Hives 14 - Other: See Comments 2 - Rash 12 - Shortness of Breath 16 - Unknown 11 - Vomiting Date Reviewed: 07/05/2023 Reviewed by: Mckenzie Heck, RT(R) - Fully Assessed Reason for Visit: Follow Up Tests Results [770] Cmt: CTA--->needs EUS Appointment [186] Cmt: EUS Primary Visit Diagnosis:Chronic recurrent pancreatitis (HCC) [K86.1] Order(s):EGD - THERAPEUTIC, EUS, OR TUBE INTERVENTIONS [GI2] Order #: [id number] FUTURE Prescriptions as of 07/30/2023 - misfir-dnxbouzz-rxzrlwt (CREON) 24,000-76,000 -120,000 unit delayed release capsule Take 2 capsules by mouth two times a day with meals. - dicyclomine (BENTYL) 20 mg tablet Take 1 tablet by mouth q 8 HR. - amitriptyline (ELAVIL) 25 mg tablet Take 1 tablet by mouth daily at bedtime. - escitalopram oxalate (LEXAPRO) 10 mg tablet Take 10 mg by mouth once daily. - ondansetron (ZOFRAN) 4 mg tablet Take 4 mg by mouth as needed. Problem List As Of Date 07/13/2023 Noted Resolved Cervicalgia [M54.2] 12/09/2021 Chronic pain of left knee [M25.562, G89.29] 12/09/2021 Chronic left shoulder pain [M25.512, G89.29] 12/09/2021 Recurrent infections [B99.9] 12/09/2021 Urticaria [L50.9] 12/09/2021 Chronic fatigue [R53.82] 12/09/2021 Bilateral arm pain [M79.601, M79.602] 12/08/2022 Chronic bilateral low back pain without sciatic*12/08/2022 Abnormal findings on imaging test [R93.89] 12/08/2022 Photosensitivity [L56.8] 12/08/2022 Encounter Status:Closed by ANABEL TENA II on 07/30/23 Normal [facility] CTA ABD/PELV W IVCONon 07-05 CTA ABD/PELV W IVCON * * *Final Report* * * DATE OF EXAM: Jul 05 2023 11:20AM [facility] 0311 - CTA ABD/PELV W IVCON / PROCEDURE REASON: multiple diagnoses * * * * Physician Interpretation * * * * RESULT: CT ANGIOGRAM OF THE ABDOMEN AND PELVIS HISTORY: 32-year-old female with right upper quadrant pain, suggestive of median arcuate ligament syndrome TECHNIQUE: High-resolution contrast-enhanced helical CT of the abdomen and pelvis was performed, timed to the arterial phase, in inspiration and expiration. 3-D processing was performed by the physician on an independent work station, with MIP and volume-rendering techniques. Total of 150 ml of Omnipaque 350 was injected IV during the examination. The study was performed without oral contrast. The patient tolerated the injection without complications. Dose-Length Product (DLP): 437 mGy*cm. CT Dose Reduction Employed: Automated exposure control (AEC) RESULT: COMPARISON: MRI abdomen 04/13/2023. LIMITATIONS: None ABDOMEN: Images of the aorta demonstrate normal caliber vessel with no significant focal stenosis or aneurysm formation. Celiac artery demonstrates 50% extrinsic compression and caudal deviation in end expiration, secondary to the median arcuate ligament. This finding is much less pronounced in the end inspiration phase, suggesting a physiologic finding. Superior mesenteric artery demonstrates no significant focal stenosis. Inferior mesenteric artery demonstrates no significant focal stenosis. There is a single right renal artery. Right renal artery demonstrates no significant focal stenosis. There is a single renal vein which is patent. There is a single left renal artery. Left renal artery demonstrates no significant focal stenosis. There is a single renal vein which is patent. The iliac and the visualized femoral arteries are within normal limits. NONVASCULAR FINDINGS: Lower thorax: Unremarkable. Liver: No mass. Biliary: No bile duct dilation. Gallbladder is unremarkable. Spleen: No mass. No splenomegaly. Pancreas: No mass or duct dilation. Adrenals: No mass. Kidneys: 1.4 cm right renal cyst, unchanged Retroperitoneum: Unremarkable GI tract: No dilation or wall thickening. Lymph nodes: No abdominal or pelvic lymphadenopathy. Mesentery/Peritoneum: No ascites or mass. Pelvis: No mass, ascites or fluid collection. Bones/Soft Tissues: No significant finding. Truck Driver Helper (topogram) images: No additional findings. 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 Should there be any questions regarding this interpretation, please call [phone]. If you are unable to reach us at the number above, please feel free to contact [facility] at [phone]. [id number] Normal [facility] Christine 06-25-2023 [facility]NA Tele[facility] ----- ROSA ALONZO ([id number]) 2000 F Date Time Provider Department 06/25/23 LARGE HOPS PROCEDURE RM 15 RCTLO During your visit today, we recorded the following information about you: Isabelle Menon MD 06/25/2023 5:25 PM Signed Gisela: I wanted her to have CTA. Is this what was ordered? See the massage from [employer]. 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 MD Kris Medrano Dawn, VIRGILIO 06/26/2023 9:16 AM Signed CTA is ordered. Mckenzie, please see Dr. Menon's msg below. Thank you, Gisela Ponce RN Allergies As of Date: 06/25/2023 Noted Allergy Reaction METRONIDAZOLE 09/07/2020 1 - Mental Status Change 6 - Diarrhea 8 - GI Upset 4 - Hives 14 - Other: See Comments 2 - Rash 12 - Shortness of Breath 16 - Unknown 11 - Vomiting Date Reviewed: 06/06/2023 Reviewed by: Isabelle Menon MD - Fully Assessed Reason for Visit: Scans [867] Prescriptions as of 06/26/2023 - nzbnxa-yahvtsaw-hdojpnl (CREON) 24,000-76,000 -120,000 unit delayed release capsule Take 2 capsules by mouth two times a day with meals. - dicyclomine (BENTYL) 20 mg tablet Take 1 tablet by mouth q 8 HR. - amitriptyline (ELAVIL) 25 mg tablet Take 1 tablet by mouth daily at bedtime. - escitalopram oxalate (LEXAPRO) 10 mg tablet Take 10 mg by mouth once daily. - ondansetron (ZOFRAN) 4 mg tablet Take 4 mg by mouth as needed. Problem List As Of Date 06/25/2023 Noted Resolved Cervicalgia [M54.2] 12/09/2021 Chronic pain of left knee [M25.562, G89.29] 12/09/2021 Chronic left shoulder pain [M25.512, G89.29] 12/09/2021 Recurrent infections [B99.9] 12/09/2021 Urticaria [L50.9] 12/09/2021 Chronic fatigue [R53.82] 12/09/2021 Bilateral arm pain [M79.601, M79.602] 12/08/2022 Chronic bilateral low back pain without sciatic*12/08/2022 Abnormal findings on imaging test [R93.89] 12/08/2022 Photosensitivity [L56.8] 12/08/2022 Encounter Status:Closed by MCKENZIE HECK on 06/25/23 Normal [facility] CNOVon 06-06-2023 CNOV Office Visit ([facility] ) ----- ROSA ALONZO ([id number]) 2000 F Date Time Provider Department 06/06/23 12:00 PM ISABELLE MENON During your visit today, we recorded the following information about you: Pulse Blood pressure Weight 87/minute 104/71 51.3 kg Isabelle Menon MD 06/12/2023 5:29 PM Signed REASON FOR VISIT: Recurrent acute pancreatitis HPI: Rosa Alonzo is a 22 year old female who presents on the request of Dr. Butler. She was seen by him 05/22/2023 as outlined below for abdominal pain and history of pancreatitis. The patient came to the office with her mother who works as in at [employer]. The problem started when she was age 14 with her first attack of acute pancreatitis. At that time the ultrasound was normal for gallstone. CT scan of the abdomen and pelvis showed acute pancreatitis. She stayed in the hospital for 5 days. She did well for several years after that. 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 The exact etiology was not clear. In the last few years she started complaining of occasional right upper quadrant pain that radiates to her back on the right. She described the pain to be dull and intermittent in nature and she has multiple episodes on a daily basis. Not necessarily related to eating. In the month of April 2023 she was evaluated in the emergency room for 3 times because of this pain. RUQ US negative for cholelithiasis or gallbladder sludge HIDA scan with CCK showed ejection fraction 69%. CT-scan abd/pelvis 04/14/2023 showed distal colitis and pelvic vasculature congestion. MRCP 04/13/2023 showed normal biliary tree, pancreas and gallbladder. No pancreas divisum. Fecal pancreatic elastase on 10/2022 was normal ===> 253. IgG4 is normal. She lost 15-20 pounds in the last 1/2 years. Bowel movements to 3 times daily yellow, floaty and for me. The patient provided information about her symptoms in which she describes specifically 4 6 specific symptoms: RUQ pain radiating to the back between her shoulder blades on the right. Extreme fatigue. Hives and rash, very itchy. Diarrhea and vomiting, she vomits up to 3 times monthly. She has history of endometriosis. She does not smoke cigarettes or drink alcohol. She is and has no children. Her father had cholecystectomy 830. No family history of pancreatitis or pancreatic cancer. Paternal grandmother had history of gallbladder cancer and at age 63. Previous work up includes: Last OV with Dr. Butler 05/22/2023 ASSESSMENT/PLAN: 22 y/o female with chronic abd pain. Etiology is not entirely clear. She has a history of idiopathic pancreatitis but workup has not demonstrated acute or chronic pancreatitis. She is seeing pancreatic biliary specialist in the coming weeks for an opinion. C.Diff testing negative. IBS-D remains an issue, start amitriptyline. Consider referral to [facility] if symptoms fail to improve. 1. Chronic pancreatitis, unspecified pancreatitis type (HCC) - ICD9: 577.1, ICD10: K86.1 (primary diagnosis) - appt scheduled with pancreatic biliary specialist 2. Generalized abdominal pain - ICD9: 789.07, ICD10: R10.84 - start amitriptyline 3. Irritable bowel syndrome with diarrhea - ICD9: 564.1, ICD10: K58.0 - start amitriptyline 4. History of Clostridioides difficile colitis - ICD9: V12.79, ICD10: Z86.19 - stable, negative stool studies 04/14/23 CT/CT abdomen pelvis w con 1. Ill-defined inflammatory changes in the pelvis centered around the rectum which appears to have moderate wall thickening. Findings are suspect for distal colitis, however, the differential also includes pelvic inflammatory disease. 2. No other potentially acute intra-abdominal abnormality demonstrated. 3. Prominent pelvic vasculature which could be reactive or physiologic versus pelvic congestion syndrome secondary to narrowing of the left renal vein as it passes between the SMA and aorta. 04/13/23 MRI ABDOMEN WO/W IVCON Motion degraded examination. Pancreas: Pancreas is normal in precontrast T1 signal intensity with no solid masses or main pancreatic duct dilatation. No pancreatic divisum. Biliary: No intrahepatic or extrahepatic biliary ductal dilation. No choledocholithiasis or stricture. Gallbladder: No cholelithiasis or gallbladder wall thickening. Liver: No mass. No MR findings of hepatic steatosis. No thrombus in the portal venous system (splenic vein, main portal vein, left and right anterior and right posterior portal vein branches). Spleen: No focal splenic lesions. Spleen is normal in size. Kidneys: Kidneys enhance symmetrically without ydroureteronephrosis or enhancing renal masses. 1.4 cm right renal cyst. Adrenal glands: Adrenal glands are normal. Lymph nodes: No lymphadenopathy by size criteria. Mesentery: No ascites. Osseous structures: No (more content not included)... Normal [facility] HISTORY PHYSICALon 3 HISTORY PHYSICAL HNO ID: [id number] Author: Isabelle Menon MD Service: ? Author Type: Physician Type: HANDP Filed: 06/12/2023 5:29 PM Note Text: REASON FOR VISIT: Recurrent acute pancreatitis HPI: Rosa Alonzo is a 22 year old female who presents on the request of Dr. Butler. She was seen by him 05/22/2023 as outlined below for abdominal pain and history of pancreatitis. The patient came to the office with her mother who works as in at [employer]. The problem started when she was age 14 with her first attack of acute pancreatitis. At that time the ultrasound was normal for gallstone. CT scan of the abdomen and pelvis showed acute pancreatitis. She stayed in the hospital for 5 days. She did well for several years after that. 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 The exact etiology was not clear. In the last few years she started complaining of occasional right upper quadrant pain that radiates to her back on the right. She described the pain to be dull and intermittent in nature and she has multiple episodes on a daily basis. Not necessarily related to eating. In the month of April 2023 she was evaluated in the emergency room for 3 times because of this pain. RUQ US negative for cholelithiasis or gallbladder sludge HIDA scan with CCK showed ejection fraction 69%. CT-scan abd/pelvis 04/14/2023 showed distal colitis and pelvic vasculature congestion. MRCP 04/13/2023 showed normal biliary tree, pancreas and gallbladder. No pancreas divisum. Fecal pancreatic elastase on 10/2022 was normal ===> 253. IgG4 is normal. She lost 15-20 pounds in the last 1/2 years. Bowel movements to 3 times daily yellow, floaty and for me. The patient provided information about her symptoms in which she describes specifically 4 6 specific symptoms: RUQ pain radiating to the back between her shoulder blades on the right. Extreme fatigue. Hives and rash, very itchy. Diarrhea and vomiting, she vomits up to 3 times monthly. She has history of endometriosis. She does not smoke cigarettes or drink alcohol. She is and has no children. Her father had cholecystectomy 830. No family history of pancreatitis or pancreatic cancer. Paternal grandmother had history of gallbladder cancer and at age 63. Previous work up includes: Last OV with Dr. Butler 05/22/2023 ASSESSMENT/PLAN: 22 y/o female with chronic abd pain. Etiology is not entirely clear. She has a history of idiopathic pancreatitis but workup has not demonstrated acute or chronic pancreatitis. She is seeing pancreatic biliary specialist in the coming weeks for an opinion. C.Diff testing negative. IBS-D remains an issue, start amitriptyline. Consider referral to [facility] if symptoms fail to improve. 1. Chronic pancreatitis, unspecified pancreatitis type (HCC) - ICD9: 577.1, ICD10: K86.1 (primary diagnosis) - appt scheduled with pancreatic biliary specialist 2. Generalized abdominal pain - ICD9: 789.07, ICD10: R10.84 - start amitriptyline 3. Irritable bowel syndrome with diarrhea - ICD9: 564.1, ICD10: K58.0 - start amitriptyline 4. History of Clostridioides difficile colitis - ICD9: V12.79, ICD10: Z86.19 - stable, negative stool studies 04/14/23 CT/CT abdomen pelvis w con 1. Ill-defined inflammatory changes in the pelvis centered around the rectum which appears to have moderate wall thickening. Findings are suspect for distal colitis, however, the differential also includes pelvic inflammatory disease. 2. No other potentially acute intra-abdominal abnormality demonstrated. 3. Prominent pelvic vasculature which could be reactive or physiologic versus pelvic congestion syndrome secondary to narrowing of the left renal vein as it passes between the SMA and aorta. 04/13/23 MRI ABDOMEN WO/W IVCON Motion degraded examination. Pancreas: Pancreas is normal in precontrast T1 signal intensity with no solid masses or main pancreatic duct dilatation. No pancreatic divisum. Biliary: No intrahepatic or extrahepatic biliary ductal dilation. No choledocholithiasis or stricture. Gallbladder: No cholelithiasis or gallbladder wall thickening. Liver: No mass. No MR findings of hepatic steatosis. No thrombus in the portal venous system (splenic vein, main portal vein, left and right anterior and right posterior portal vein branches). Spleen: No focal splenic lesions. Spleen is normal in size. Kidneys: Kidneys enhance symmetrically without ydroureteronephrosis or enhancing renal masses. 1.4 cm right renal cyst. Adrenal glands: Adrenal glands are normal. Lymph nodes: No lymphadenopathy by size criteria. Mesentery: No ascites. Osseous structures: No aggressive osseous lesions. IMPRESSION: No MR findings of acute or chronic pancreatitis. No pancreatic divisum. 12/01/22 HIDA scan was done at [facility]: Normal study EF 69% US: 10/31/22: (care everywhere) Liver normal Gallbal (more content not included)... Normal [facility] Alanine aminotransferase [En zymatic activity/volume] in Serum or PlasmaOrdered By: Analia Holliday on 05-30-2023 ALT [Catalytic activity/Vol] 10 U/L Normal 7-52 [facility] Comment on above: Order Comment: Reaso n for Exam Well adult exam Performed By: #### V [id number], TSH3, CMP wRFX A1C, LIPID, CBC, FE PRO, [id number] #### [facility] [address] Albumin [Mass/volume] in Ser um or Plasma by Bromocresol green (BCG) dye binding methoOrdered By: Analia Holliday on 05-30-2023 Albumin BCG dye [Mass/Vol] 4.6 g/dL 3.5-5.7 [facility] Alkaline phosphatase [Enzyma tic activity/volume] in Serum or PlasmaOrdered By: Analia Holliday on 05-30-2023 ALP [Catalytic activity/Vol] 44 U/L Normal 34-104 [facility] Comment on above: Order Comment: Reaso n for Exam Well adult exam Performed By: #### V [id number], TSH3, CMP wRFX A1C, LIPID, CBC, FE PRO, [id number] #### [facility] [address] [place] [address] Aspartate aminotransferase [ Enzymatic activity/volume] in Serum or PlasmaOrdered By: Analia Holliday on 05-30-2023 AST [Catalytic activity/Vol] 16 U/L Normal 13-39 [facility] Comment on above: Order Comment: Reaso n for Exam Well adult exam Performed By: #### V [id number], TSH3, CMP wRFX A1C, LIPID, CBC, FE PRO, [id number] #### [facility] [address] [place] [address] Automated basophil %Ordered By: Analia Holliday on 05-30-2023 Basophils/100 WBC (Bld) 0.8 % Normal . [facility] Comment on above: Order Comment: Reaso n for Exam Well adult exam Performed By: #### V [id number], TSH3, CMP wRFX A1C, LIPID, CBC, FE PRO, [id number] #### [facility] [address] [place] [address] Automated basophil countOrde red By: Analia Holliday on 05-30-2023 Basophils (Bld) [#/Vol] 0.0 10*3/uL Normal 0.0-0.2 [facility] Comment on above: Order Comment: Reaso n for Exam Well adult exam Result Comment: PERF ORMED BY: [place] [address] PATHOLOGIST [employer] RY BUTTERFIELD M.D. Performed By: #### V [id number], TSH3, CMP wRFX A1C, LIPID, CBC, FE PRO, [id number] #### [facility] [address] [place] [address] Automated blood monocyte cou ntOrdered By: Analia Holliday on 05-30-2023 Monocytes (Bld) [#/Vol] 0.5 10*3/uL Normal 0.0-0.8 [facility] Comment on above: Order Comment: Reaso n for Exam Well adult exam Performed By: #### V [id number], TSH3, CMP wRFX A1C, LIPID, CBC, FE PRO, [id number] #### [facility] [address] [place] [address] Automated eosinophil %Ordere d By: Analia Holliday on 05-30-2023 Eosinophils/100 WBC (Bld) 3.8 % Normal . [facility] Comment on above: Order Comment: Reaso n for Exam Well adult exam Performed By: #### V [id number], TSH3, CMP wRFX A1C, LIPID, CBC, FE PRO, [id number] #### [address] Automated eosinophil countOr dered By: Analia Holliday on 05-30-2023 Eosinophils (Bld) [#/Vol] 0.2 10*3/uL Normal 0.0-0.45 [facility] Comment on above: Order Comment: Reaso n for Exam Well adult exam Performed By: #### V [id number], TSH3, CMP wRFX A1C, LIPID, CBC, FE PRO, [id number] #### [address] Automated monocyte %Ordered By: Analia Holliday on 05-30-2023 Monocytes/100 WBC (Bld) 9.5 % Normal . [facility] Comment on above: Order Comment: Reaso n for Exam Well adult exam Performed By: #### V [id number], TSH3, CMP wRFX A1C, LIPID, CBC, FE PRO, [id number] #### [facility] [address] [place] [address] [place] Automated neutrophil %Ordere d By: Analia Holliday on 05-30-2023 Neutrophils/100 WBC (Bld) 46.6 % Normal . [facility] Comment on above: Order Comment: Reaso n for Exam Well adult exam Performed By: #### V [id number], TSH3, CMP wRFX A1C, LIPID, CBC, FE PRO, [id number] #### [facility] [address] [place] [id number] [facility] Bilirubin.total [Mass/volume ] in Serum or PlasmaOrdered By: Analia Holliday on 05-30-2023 Bilirubin [Mass/Vol] 0.6 mg/dL Normal 0.3-1.0 [facility] Comment on above: Order Comment: Reaso n for Exam Well adult exam Performed By: #### V [id number], TSH3, CMP wRFX A1C, LIPID, CBC, FE PRO, [id number] #### [facility] [address] [place] [id number] [facility] CMP with reflex to A1Con Albumin [Mass/Vol] 4.6 g/dL Normal 3.5-5.7 [facility] Comment on above: Order Comment: Reaso n for Exam Well adult exam Performed By: #### V [id number], TSH3, CMP wRFX A1C, LIPID, CBC, FE PRO, [id number] #### [facility] [address] [place] [id number] [place] GFR/1.73 sq M.predicted MDRD (S/P/Bld) [Vol rate/Area] mL/min/{1.73_m2} Normal [facility] Comment on above: Order Comment: Reaso n for Exam Well adult exam Performed By: #### V [id number], TSH3, CMP wRFX A1C, LIPID, CBC, FE PRO, [id number] #### [facility] [address] [place] [id number] [place] Calcium [Mass/volume] in Ser um or PlasmaOrdered By: Analia Holliday on 05-30-2023 Calcium [Mass/Vol] 9.5 mg/dL Normal 8.6-10.3 [facility] Comment on above: Order Comment: Reaso n for Exam Well adult exam Performed By: #### V [id number], TSH3, CMP wRFX A1C, LIPID, CBC, FE PRO, [id number] #### [facility] [address] [place] [id number] [place] Carbon dioxide, total [Moles /volume] in Serum or PlasmaOrdered By: Analia Holliday on 05-30-2023 CO2 [Moles/Vol] 27.5 mmol/L Normal 21.0-31.0 [facility] Comment on above: Order Comment: Reaso n for Exam Well adult exam Performed By: #### V [id number], TSH3, CMP wRFX A1C, LIPID, CBC, FE PRO, [id number] #### [facility] [address] [place] [address] [place] Chloride [Moles/volume] in S leobardo or PlasmaOrdered By: Analia Holliday on 05-30-2023 Chloride [Moles/Vol] 106 mmol/L Normal 98-107 [facility] Comment on above: Order Comment: Reaso n for Exam Well adult exam Performed By: #### V [id number], TSH3, CMP wRFX A1C, LIPID, CBC, FE PRO, [id number] #### [facility] [address] [place] [id number] [place] Cholesterol [Mass/volume] in Serum or PlasmaOrdered By: Analia Holliday on 05-30-2023 Cholesterol [Mass/Vol] 169 mg/dL Normal 140-200 [facility] Comment on above: Chol less than 200 m g/dl low riskChol 201-239 mg/dl borderline riskChol 240 mg/dl and greater high risk Order Comment: Reaso n for Exam Well adult exam Result Comment: Chol less than 200 mg/dl low risk Chol 201-239 mg/dl borderline risk Chol 240 mg/dl and greater high risk Performed By: #### V [id number], TSH3, CMP wRFX A1C, LIPID, CBC, FE PRO, [id number] #### [facility] [address] [place] [address] [place] Cholesterol in LDL Calc [Mas s/Vol]Ordered By: Analia Holliday on 05-30-2023 Cholesterol in LDL [Mass/Vol] 100 mg/dL 0-100 [facility] Comment on above: LDL ATP III CLASSIFI CATIONLDL less than 100 mg/dL OptimalLDL 100-129 mg/dL Near or above optimalLDL 130-159 mg/dL Borderline highLDL 160-189 mg/dL HighLDL greater than 189 mg/dL Very high Cholesterol in VLDL Calc [Ma ss/Vol]Ordered By: Analia Holliday on 05-30-2023 Cholesterol in VLDL [Mass/Vol] 8 mg/dL [facility] Complete Blood Count Auto Di ffon 05-30-2023 Mean Corpuscular HGB Conc 34.1 g/dL Normal 32.0-35.0 [facility] Comment on above: Order Comment: Reaso n for Exam Well adult exam Performed By: #### V [id number], TSH3, CMP wRFX A1C, LIPID, CBC, FE PRO, [id number] #### [facility] [address] NRBC% 0.1 /100{WBC} Normal 0-0.5 [facility] Comment on above: Order Comment: Reaso n for Exam Well adult exam Performed By: #### V [id number], TSH3, CMP wRFX A1C, LIPID, CBC, FE PRO, [id number] #### [facility] [address] Creatinine [Mass/volume] in Serum or PlasmaOrdered By: Analia Holliday on 05-30-2023 Creatinine [Mass/Vol] 0.66 mg/dL Normal 0.60-1.20 [facility] Comment on above: Order Comment: Reaso n for Exam Well adult exam Performed By: #### V [id number], TSH3, CMP wRFX A1C, LIPID, CBC, FE PRO, [id number] #### [facility] [address] Erythrocyte distribution wid th [Ratio] by Automated countOrdered By: Analia Holliday on 05-30-2023 Erythrocyte distribution width (RBC) [Ratio] 12.3 % Normal 11.9-15.3 [facility] Comment on above: Order Comment: Reaso n for Exam Well adult exam Performed By: #### V [id number], TSH3, CMP wRFX A1C, LIPID, CBC, FE PRO, [id number] #### [facility] [address] Erythrocytes [#/volume] in B lood by Automated countOrdered By: Analia Holliday on 05-30-2023 RBC (Bld) [#/Vol] 4.30 10*6/uL Normal 3.60-5.00 [facility] Comment on above: Order Comment: Reaso n for Exam Well adult exam Performed By: #### V [id number], TSH3, CMP wRFX A1C, LIPID, CBC, FE PRO, [id number] #### [address] FE PROon 05-30-2023 % Iron Saturation 33.2 % Normal 20-50 [facility] Comment on above: Order Comment: Reaso n for Exam Well adult exam Performed By: #### V [id number], TSH3, CMP wRFX A1C, LIPID, CBC, FE PRO, [id number] #### [facility] [address] [place] [address] Total Iron Binding Capacity 349 ug/dL Normal 255-450 [facility] Comment on above: Order Comment: Reaso n for Exam Well adult exam Performed By: #### V [id number], TSH3, CMP wRFX A1C, LIPID, CBC, FE PRO, [id number] #### [facility] [address] [place] [address] [place] Ferritin [Mass/volume] in Se rum or PlasmaOrdered By: Analia Holliday on 05-30-2023 Ferritin [Mass/Vol] 38.7 ng/mL Normal 11.0-306.8 [facility] Comment on above: Order Comment: Reaso n for Exam Well adult exam Performed By: #### V [id number], TSH3, CMP wRFX A1C, LIPID, CBC, FE PRO, [id number] #### [facility] [address] [place] [address] [place] Folate [Mass/volume] in Seru m or PlasmaOrdered By: Analia Holliday on 05-30-2023 Folate [Mass/Vol] 23.0 ng/mL >5.9 [facility] Comment on above: Folate reference ran ge: >5.9 ng/mlThe WHO technical consultation on folate and vitamin o80gycrcxenirhd has determined that folate concentrations lessthan 4 ng/ml are considered deficient. Glucose [Mass/volume] in Ser um or PlasmaOrdered By: Analia Holliday on 05-30-2023 Glucose [Mass/Vol] 89 mg/dL Normal 70-100 [facility] Comment on above: Order Comment: Reaso n for Exam Well adult exam Performed By: #### V [id number], TSH3, CMP wRFX A1C, LIPID, CBC, FE PRO, [id number] #### [facility] [address] [place] [address] Hematocrit [Volume Fraction] of Blood by Automated countOrdered By: Analia Holliday on 05-30-2023 Hematocrit (Bld) [Volume fraction] 39.8 % Normal 34.0-46.4 [facility] Comment on above: Order Comment: Reaso n for Exam Well adult exam Performed By: #### V [id number], TSH3, CMP wRFX A1C, LIPID, CBC, FE PRO, [id number] #### [facility] [address] [place] [address] Hemoglobin [Mass/volume] in BloodOrdered By: Analia Holliday on 05-30-2023 Hemoglobin (Bld) [Mass/Vol] 13.6 g/dL Normal 11.8-15.4 [facility] Comment on above: Order Comment: Reaso n for Exam Well adult exam Performed By: #### V [id number], TSH3, CMP wRFX A1C, LIPID, CBC, FE PRO, [id number] #### [facility] [address] [place] [id number] [place] Iron [Mass/volume] in Serum or PlasmaOrdered By: Analia Holliday on 05-30-2023 Iron [Mass/Vol] 116 ug/dL Normal 50-212 [facility] Comment on above: Order Comment: Reaso n for Exam Well adult exam Performed By: #### V [id number], TSH3, CMP wRFX A1C, LIPID, CBC, FE PRO, [id number] #### [facility] [address] Iron binding capacity [Mass/ volume] in Serum or PlasmaOrdered By: Analia Holliday on 05-30-2023 Iron binding capacity [Mass/Vol] 349 ug/dL 255-450 [facility] Iron saturation [Mass Fracti on] in Serum or PlasmaOrdered By: Analia Holliday on 05-30-2023 Iron saturation [Mass fraction] 33.2 % 20-50 [facility] Leukocytes [#/volume] correc shena for nucleated erythrocytes in Blood by Automated counOrdered By: Analia Holliday on 05-30-2023 WBC corrected for nucl RBC Auto (Bld) [#/Vol] 5.0 10*3/uL 3.8-11.6 [facility] Leukocytes [#/volume] in Blo od by Automated countOrdered By: Analia Holliday on 05-30-2023 WBC (Bld) [#/Vol] 5.0 10*3/uL Normal 3.8-11.6 [facility] Comment on above: Order Comment: Reaso n for Exam Well adult exam Performed By: #### V [id number], TSH3, CMP wRFX A1C, LIPID, CBC, FE PRO, [id number] #### [facility] [address] [place] [address] Lipid Panelon 05-30-2023 LDL Cholesterol,Calculate d 100 mg/dL Normal 0-100 [facility] Comment on above: Order Comment: Reaso n for Exam Well adult exam Result Comment: LDL ATP III CLASSIFICATION LDL less than 100 mg/dL Optimal LDL 100-129 mg/dL Near or above optimal LDL 130-159 mg/dL Borderline high LDL 160-189 mg/dL High LDL greater than 189 mg/dL Very high Performed By: #### V [id number], TSH3, CMP wRFX A1C, LIPID, CBC, FE PRO, [id number] #### [facility] [address] [place] [address] [place] Triglyceride w/Reflex 42 mg/dL Normal 0-149 [facility] Comment on above: Order Comment: Reaso n for Exam Well adult exam Result Comment: TRIG ATP III CLASSIFICATION TRIG less than 150 mg/dL Normal TRIG 150-199 mg/dL Borderline high TRIG 200-500 mg/dL High TRIG greater than 500 mg/dL Very high Standard traceable to the Center for Disease Conrtrol and Prevention (CDC) test method. Performed By: #### V [id number], TSH3, CMP wRFX A1C, LIPID, CBC, FE PRO, [id number] #### [facility] [address] VLDL CHOLESTEROL 8 mg/dL Normal [facility] Comment on above: Order Comment: Reaso n for Exam Well adult exam Performed By: #### V [id number], TSH3, CMP wRFX A1C, LIPID, CBC, FE PRO, [id number] #### [address] Lymphocytes [#/volume] in Bl ood by Automated countOrdered By: Analia Holliday on 05-30-2023 Lymphocytes (Bld) [#/Vol] 2.0 10*3/uL Normal 1.00-4.8 [facility] Comment on above: Order Comment: Reaso n for Exam Well adult exam Performed By: #### V [id number], TSH3, CMP wRFX A1C, LIPID, CBC, FE PRO, [id number] #### [place] [address] [place] Lymphocytes/100 leukocytes i n Blood by Automated countOrdered By: Analia Holliday on 05-30-2023 Lymphocytes/100 WBC (Bld) 39.3 % Normal . [facility] Comment on above: Order Comment: Reaso n for Exam Well adult exam Performed By: #### V [id number], TSH3, CMP wRFX A1C, LIPID, CBC, FE PRO, [id number] #### [facility] [address] [place] [id number] [place] MCH [Entitic mass] by Automa shena countOrdered By: Analia Holliday on 05-30-2023 MCH (RBC) [Entitic mass] 31.6 pg Normal 24.7-34.3 [facility] Comment on above: Order Comment: Reaso n for Exam Well adult exam Performed By: #### V [id number], TSH3, CMP wRFX A1C, LIPID, CBC, FE PRO, [id number] #### [facility] [address] MCHC Auto (RBC) [Mass/Vol]Or dered By: Analia Holliday on 05-30-2023 MCHC (RBC) [Mass/Vol] 34.1 g/dL 32.0-35.0 [facility] MCV [Entitic volume] by Auto mated countOrdered By: Analia Holliday on 05-30-2023 MCV (RBC) [Entitic vol] 92.6 fL Normal 80-100 [facility] Comment on above: Order Comment: Reaso n for Exam Well adult exam Performed By: #### V [id number], TSH3, CMP wRFX A1C, LIPID, CBC, FE PRO, [id number] #### [facility] [address] Neutrophils [#/volume] in Bl ood by Automated countOrdered By: Analia Holliday on 05-30-2023 Neutrophils (Bld) [#/Vol] 2.3 10*3/uL Normal 1.8-7.7 [facility] Comment on above: Order Comment: Reaso n for Exam Well adult exam Performed By: #### V [id number], TSH3, CMP wRFX A1C, LIPID, CBC, FE PRO, [id number] #### [facility] [address] No Panel InformationOrdered By: Analia Holliday on 05-30-2023 Estimated GFR (CKD-EPI) > 60.0 mL/Min [facility] Creatinine Clearance (Chem N/A [facility] Nucleated erythrocytes [Pres ence] in Blood by Automated countOrdered By: Analia Holliday on 05-30-2023 Nucleated RBC Auto Ql (Bld) 0.1 /100{WBC} 0-0.5 [facility] Platelet mean volume [Entiti c volume] in Blood by Automated countOrdered By: Analia Holliday on 05-30-2023 Platelet mean volume (Bld) [Entitic vol] 9.7 fL Normal 6.3-10.7 [facility] Comment on above: Order Comment: Reaso n for Exam Well adult exam Performed By: #### V [id number], TSH3, CMP wRFX A1C, LIPID, CBC, FE PRO, [id number] #### [facility] [address] [place] [address] [place] Platelets [#/volume] in Bloo d by Automated countOrdered By: Analia Hloliday on 05-30-2023 Platelets (Bld) [#/Vol] 198 10*3/uL Normal 150-450 [facility] Comment on above: Order Comment: Reaso n for Exam Well adult exam Performed By: #### V [id number], TSH3, CMP wRFX A1C, LIPID, CBC, FE PRO, [id number] #### [place] [address] [place] Potassium [Moles/volume] in Serum or PlasmaOrdered By: Analia Holliday on 05-30-2023 Potassium [Moles/Vol] 4.2 mmol/L Normal 3.5-5.1 [facility] Comment on above: Order Comment: Reaso n for Exam Well adult exam Performed By: #### V [id number], TSH3, CMP wRFX A1C, LIPID, CBC, FE PRO, [id number] #### [facility] [address] [place] [id number] [place] Protein [Mass/volume] in Ser um or PlasmaOrdered By: Analia Holliday on 05-30-2023 Protein [Mass/Vol] 7.1 g/dL Normal 6.4-8.9 [facility] Comment on above: Order Comment: Reaso n for Exam Well adult exam Performed By: #### V [id number], TSH3, CMP wRFX A1C, LIPID, CBC, FE PRO, [id number] #### [facility] [address] [place] [id number] [facility] Serum globulin measurement b y calculation (mass/volume)Ordered By: Analia Holliday on 05-30-2023 Globulin (S) [Mass/Vol] 2.5 g/dL [facility] Comment on above: Order Comment: Reaso n for Exam Well adult exam Performed By: #### V [id number], TSH3, CMP wRFX A1C, LIPID, CBC, FE PRO, [id number] #### [facility] [address] Serum or plasma albumin/glob ulin mass ratioOrdered By: Analia Holliday on 05-30-2023 Albumin/Globulin [Mass ratio] 1.8 {ratio} [facility] Comment on above: Order Comment: Reaso n for Exam Well adult exam Performed By: #### V [id number], TSH3, CMP wRFX A1C, LIPID, CBC, FE PRO, [id number] #### [facility] [address] Serum or plasma anion gap de terminationOrdered By: Analia Holliday on 05-30-2023 Anion gap [Moles/Vol] 8.7 mmol/L Normal 6.0-15.0 [facility] Comment on above: Order Comment: Reaso n for Exam Well adult exam Performed By: #### V [id number], TSH3, CMP wRFX A1C, LIPID, CBC, FE PRO, [id number] #### [facility] [address] Serum or plasma high density lipoprotein (HDL) cholesterol measurementOrdered By: Analia Holliday on 05-30-2023 Cholesterol in HDL [Mass/Vol] 61 mg/dL Normal 23-92 [facility] Comment on above: HDL CHOL ATP-III CLA SSIFICATION Cardiovascular RiskHDL > or equal to 60 mg/dL LOWHDL < 40 mg/dL HIGH Order Comment: Reaso n for Exam Well adult exam Result Comment: HDL CHOL ATP-III CLASSIFICATION Cardiovascular Risk HDL > or equal to 60 mg/dL LOW HDL < 40 mg/dL HIGH Performed By: #### V [id number], TSH3, CMP wRFX A1C, LIPID, CBC, FE PRO, [id number] #### [facility] [address] [place] [id number] [place] Serum or plasma total choles terol/high density lipoprotein (HDL) cholesterol mass ratOrdered By: Analia Holliday on 05-30-2023 Cholesterol.total/Cho lesterol in HDL [Mass ratio] 2.8 {ratio} Normal <5.0 [facility] Comment on above: Order Comment: Reaso n for Exam Well adult exam Performed By: #### V [id number], TSH3, CMP wRFX A1C, LIPID, CBC, FE PRO, [id number] #### [facility] [address] [place] [id number] [place] Sodium [Moles/volume] in Ser um or PlasmaOrdered By: Analia Holliday on 05-30-2023 Sodium [Moles/Vol] 138 mmol/L Normal 136-145 [facility] Comment on above: Order Comment: Reaso n for Exam Well adult exam Performed By: #### V [id number], TSH3, CMP wRFX A1C, LIPID, CBC, FE PRO, [id number] #### [facility] [address] [place] [id number] [facility] Thyrotropin [Units/volume] i n Serum or PlasmaOrdered By: Analia Holliday on 05-30-2023 TSH Qn 0.95 m[IU]/L Normal 0.45-5.33 [facility] Comment on above: Order Comment: Reaso n for Exam Well adult exam Performed By: #### V [id number], TSH3, CMP wRFX A1C, LIPID, CBC, FE PRO, [id number] #### [facility] [address] [place] [address] [place] Transferrin [Mass/volume] in Serum or PlasmaOrdered By: Analia Holliday on 05-30-2023 Transferrin [Mass/Vol] 249 mg/dL Normal 203-362 [facility] Comment on above: Order Comment: Reaso n for Exam Well adult exam Performed By: #### V [id number], TSH3, CMP wRFX A1C, LIPID, CBC, FE PRO, [id number] #### [facility] [address] [place] [id number] [facility] Triglyceride [Mass/volume] i n Serum or PlasmaOrdered By: Analia Holliday on 05-30-2023 Triglyceride [Mass/Vol] 42 mg/dL 0-149 [facility] Comment on above: TRIG ATP III CLASSIF ICATIONTRIG less than 150 mg/dL NormalTRIG 150-199 mg/dL Borderline highTRIG 200-500 mg/dL High TRIG greater than 500 mg/dL Very highStandard traceable to the Center for Disease Conrtrol and Prevention (CDC) test method. Urea nitrogen [Mass/volume] in Serum or PlasmaOrdered By: Analia Holliday on 05-30-2023 Urea nitrogen [Mass/Vol] 12 mg/dL Normal 7-25 [facility] Comment on above: Order Comment: Reaso n for Exam Well adult exam Performed By: #### V [id number], TSH3, CMP wRFX A1C, LIPID, CBC, FE PRO, [id number] #### [facility] [address] Vit. B12/Folate Profileon Folate 23.0 ng/mL Normal >5.9 [facility] Comment on above: Order Comment: Reaso n for Exam Well adult exam Result Comment: Pina te reference range: >5.9 ng/ml The WHO technical consultation on folate and vitamin b12 deficiencies has determined that folate concentrations less than 4 ng/ml are considered deficient. Performed By: #### V [id number], TSH3, CMP wRFX A1C, LIPID, CBC, FE PRO, [id number] #### [facility] [address] [place] [id number] [facility] Vitamin B12 ser/plasOrdered By: Analia Holliday on 05-30-2023 Cobalamin (Vitamin B12) [Mass/Vol] 630 pg/mL Normal 180-914 [facility] Comment on above: Order Comment: Reaso n for Exam Well adult exam Performed By: #### V [id number], TSH3, CMP wRFX A1C, LIPID, CBC, FE PRO, [id number] #### [facility] [address] [place] [id number] [place] Vitamin D 25 Hydroxy Totalon 05-30-2023 Vitamin D 25 Hydroxy Total 27.7 ng/mL Low 30-100 [facility] Comment on above: Order Comment: Reaso n for Exam Well adult exam Result Comment: ANN MARIE MIN D STATUS 25(OH)VITAMIN D RANGE (ng/mL) Deficient <20 Insufficient 20 to <30 Sufficient 30 to 100 Reference: Manpreet Martinez, Doe COLEMAN, et al. Evaluation,treatment, and prevention of vitamin D deficiency; an Endocrine Society clinical practice guideline. JCEM. 2010; 96(7):1911-30. PERFORMED BY: [facility] [address] [place] [address] PATHOLOGIST CAR DISTRIBUTOR RY BUTTERFIELD M.D. Performed By: #### V [id number], TSH3, CMP wRFX A1C, LIPID, CBC, FE PRO, [id number] #### [facility] [address] Vitamin D+Metabolites [Mass/ volume] in Serum or PlasmaOrdered By: Analia Holliday on 05-30-2023 Vitamin D+Metabolites [Mass/Vol] 27.7 ng/mL 30-100 [facility] Comment on above: VITAMIN D STATUS 25( OH)VITAMIN D RANGE (ng/mL) Deficient <20 Insufficient 20 to <30Sufficient 30 to 100Reference: Manpreet Martinez, Doe COLEMAN, et al. Evaluation,treatment, and prevention of vitamin D deficiency; an Endocrine Society clinical practice guideline. JCEM. 2010; 96(7):1911-30. CNOVon 05-22-2023 CNOV Office Visit ([facility] ) ----- ROSA ALONZO ([id number]) 2000 F Date Time Provider Department 05/22/23 11:20 DARA ADRIAN JR [facility] During your visit today, we recorded the following information about you: Weight Height 52.3 kg 1.626 m Dara Butler Jr., DO 05/22/2023 12:18 PM Signed Patient presents with: Follow Up HPI: Rosa Alonzo, 22 year old female, for followup. She continues to have chronic generalized abd pain with associated nausea and diarrhea. Pain is around 7 everyday but worsens and evaluated in ER. Workup has been nondiagnostic. Food tends to make symptoms worse. Around 10 yrs ago she had episode of pancreatitis without clear etiology. Since she reports a couple episodes. She feels this is etiology for her chronic abd pain. MRI, CT scan, US, HIDA, labs have failed to demonstrate chronic pancreatitis findings. Workup for autoimmune pancreatitis was negative. Triglycerides are normal. She denies EtOH use. No family history of pancreatitis. Around two years ago she had c.diff after course of antibiotics and required two fecal transplants. Stool was negative for c.diff in Mar and Apr. History of IBS-D, limited benefit with dicyclomine. Last EGD was 2 yrs ago, last colonoscopy was 8 months ago in [place]. Past GI workup 05/08/23 ER visit notes as follows: patient is a 22-year-old female with a history of recurrent pancreatitis since age 14 who presents to the Emergency Room for a two day history of pain in the right upper quadrant radiating into the right shoulder. She states she is concerned she may have pancreatitis again. She states it has been several years since her last exacerbation. She does not currently take any medications for her stomach. She is not concerned for , she does not take control, she has had no history of deep vein thrombosis or PE and has not had any upper respiratory symptoms, hemoptysis or extremity swelling. She states she had laparoscopic surgery four months ago for endometriosis. she denies fevers. She denies urinary symptoms. She has had vomiting and diarrhea. 04/19/2023 8:00 AM EDT Office [place] [address] Kyree Noguera MD Abnormal flushing and sweating (Primary Dx); Pain of upper abdomen; Hypoglycemia; Renal vein stenosis 04/18/23 ER visit for abdominal pain 22-year-old female presents for abdominal pain. It's in the upper abdomen and in particular the right upper quadrant area. She's had it for a few days. She's had issues with recurrent pancreatitis beginning at age 14. She doesn't know what has caused it but she states that it's not from alcohol. She's had a CAT scan earlier this year that she states showed some calcifications in part of the pancreas. No trauma or fever. She's been nauseous and vomited. The pain is moderate to severe at times. 04/14/23 CT/CT abdomen pelvis w con 1. Ill-defined inflammatory changes in the pelvis centered around the rectum which appears to have moderate wall thickening. Findings are suspect for distal colitis, however, the differential also includes pelvic inflammatory disease. 2. No other potentially acute intra-abdominal abnormality demonstrated. 3. Prominent pelvic vasculature which could be reactive or physiologic versus pelvic congestion syndrome secondary to narrowing of the left renal vein as it passes between the SMA and aorta. 04/13/23 MRI ABDOMEN WO/W IVCON No MR findings of acute or chronic pancreatitis. No pancreatic divisum. 04/01/23 ER visit notes patient is a 22-year-old female presents to the Emergency Room with concerns of diarrhea, nausea and vomiting. Patient states she has had symptoms for the past week, was tested earlier in the week for C. difficile which was negative per patient. She sees a specialist to [facility] doctor Butler for GI- currently awaiting genetic testing for pancreatitis noted on CT scan. Patient presents today after having three episodes of diarrhea and noticing that her stool was pale/white appearing, denies blood or pus. She has had nausea this morning and one episode of vomiti ng. 02/06/23 last OV notes as follows: Rosa Alonzo, 22 year old female, presents in the office today for abd pain. She reports chronic generalized abd pain with associated nausea and diarrhea. Pain is around 7 everyday. Food tends to make symptoms worse. Around 10 yrs ago she had episode of pancreatitis without clear etiology. Since she has had a couple episodes still without clear etiology. CT scan, US, HIDA, labs have been nondiagnostic. No family history of pancreatitis. Around two years ago she has c.diff after course of antibiotics and required two fecal transplants. History of IBS-D, limited benefit with dicyclomine. Last EGD was 2 yrs ago, last colonoscopy was 6 months (more content not included)... [facility] ANA [facility] (LENA) ----- ROSA ALONZO ([id number]) 2000 F Date Time Provider Department 05/03/23 DARA BUTLER JR During your visit today, we recorded the following information about you: Analia Estevez RN 05/03/2023 2:54 PM Signed ----- Message from Dara Butler Jr., DO sent at 05/02/2023 1:09 PM EDT ----- Stool studies negative DO Herb Patton Jr., Jennifer RN 05/03/2023 2:54 PM Signed Left voice message regarding results and advised to call office with any further questions. Analia Estevez RN Allergies As of Date: 05/03/2023 Noted Allergy Reaction METRONIDAZOLE 09/07/2020 1 - Mental Status Change 6 - Diarrhea 8 - GI Upset 4 - Hives 14 - Other: See Comments 2 - Rash 12 - Shortness of Breath 16 - Unknown 11 - Vomiting Date Reviewed: 02/06/2023 Reviewed by: Dara Butler Jr., DO - Fully Assessed Reason for Visit: Results [95] Prescriptions as of 05/03/2023 - chlordiazePOXIDE-clidiniu m (LIBRAX) 5-2.5 mg per capsule TAKE 1 CAPSULE BY MOUTH THREE TIMES DAILY WITH MEALS - ergocalciferol 50,000 unit capsule (VITAMIN D2, DRISDOL) (take by mouth with food twice a week, ONE CAPSULE ON SUNDAY AND ONE ON SUNDAY) FOR A TOTAL OF 8 WEEKS. - escitalopram oxalate (LEXAPRO) 10 mg tablet Take 10 mg by mouth once daily. - dgxwjd-jbbltcez-znixstk (ZENPEP) 40,000-126,000- 168,000 unit delayed release capsule Take 1 capsule by mouth three times daily with meals. - ondansetron (ZOFRAN) 4 mg tablet Take 4 mg by mouth as needed. Problem List As Of Date 05/03/2023 Noted Resolved Cervicalgia [M54.2] 12/09/2021 Chronic pain of left knee [M25.562, G89.29] 12/09/2021 Chronic left shoulder pain [M25.512, G89.29] 12/09/2021 Recurrent infections [B99.9] 12/09/2021 Urticaria [L50.9] 12/09/2021 Chronic fatigue [R53.82] 12/09/2021 Bilateral arm pain [M79.601, M79.602] 12/08/2022 Chronic bilateral low back pain without sciatic*12/08/2022 Abnormal findings on imaging test [R93.89] 12/08/2022 Photosensitivity [L56.8] 12/08/2022 Encounter Status:Closed by ANALIA ESTEVEZ RN on 05/03/23 Normal [facility] C diff Tox gens Stl Ql RUCHI+p robeon 05-01-2023 C. difficile toxin genes RUCHI+probe Ql (Stl) Negative Normal Negative for C. difficile toxin by PCR [facility] Comment on above: Order Comment: Speci men Type: STOOL SPECIMENOrdering Facility: [facility] Address: [address] [place] [address] Performed By: #### 5 4067-4 ####[facility] LABIA [id number] [place] [address] [place] FECAL LACTOFERRIN/LEUKOCYTES on 05-01-2023 Lactoferrin IA Ql (Stl) Negative for lactoferrin, which may indicate the absence of fecal white blood cells Normal Negative [facility] Comment on above: Order Comment: Speci men Type: STOOL SPECIMENOrdering Facility: [facility] Address: [address] [place] [address] Performed By: #### F ECWBC ####[facility] LABCLIA [id number] [place] [address] [place] G lamblia+Cryptosp Ag Stl Ql IAon 05-01-2023 G. lamblia+Cryptosporidi um sp Ag IA Ql (Stl) CRYPTOSPORIDIUM ANTIGEN BY EIA: Negative for Cryptosporidium by EIA. GIARDIA ANTIGEN BY EIA: Negative for Giardia lamblia by EIA. Normal [facility] Comment on above: Performed By: #### 4 8059-0 ####[facility] LABCLIA [id number] [place] [address] [place] Gastrointestinal pathogens i dentified RUCHI+probe Nom (Stl)on 05-01-2023 Campylobacter sp DNA RUCHI+probe Nom (Unsp spec) Not detected Normal Not Detected [facility] Comment on above: Order Comment: Speci men Type: STOOL SPECIMENOrdering Facility: [facility] Address: [address] [place] [address] Performed By: #### 7 9390-1 ####[facility] LABIA [id number] [place] [address] [place] Salmonella sp DNA RUCHI+probe Ql (Unsp spec) Not detected Normal Not Detected [facility] Comment on above: Order Comment: Speci men Type: STOOL SPECIMENOrdering Facility: [facility] Address: [address] [place] [address] Performed By: #### 7 9390-1 ####[facility] LABIA [id number] [place] [address] [place] Shiga toxin stx gene RUCHI+probe Nom (Unsp spec) Not detected Normal Not Detected [facility] Comment on above: Order Comment: Speci men Type: STOOL SPECIMENOrdering Facility: [facility] Address: [address] [place] [address] Performed By: #### 7 9390-1 ####[facility] LABCLIA [id number] [place] [address] [place] Shigella sp DNA RUCHI+probe Ql (Unsp spec) Not detected Normal Not Detected [facility] Comment on above: Order Comment: Speci men Type: STOOL SPECIMENOrdering Facility: [facility] Address: [address] [place] [address] Performed By: #### 7 9390-1 ####[facility] LABCLADRIANO [id number] STEPHANIE CONTRERAS [id number] [place] CNPNon 04-14-2023 CNPN Telephone (LENA) ----- ROSA ALONZO ([id number]) 2000 F Date Time Provider Department 04/14/23 DARA BUTLER JR During your visit today, we recorded the following information about you: Analia Estevez RN 04/14/2023 9:23 AM Signed ----- Message from Dara Butler Jr., DO sent at 04/13/2023 4:04 PM EDT ----- MRI negative for pancreatitis and anatomic pancreatic abnormalities. DO Herb Patton Jr., Jennifer RN 04/14/2023 9:24 AM Signed Patient has viewed results per [employer]. Analia Estevez RN Allergies As of Date: 04/14/2023 Noted Allergy Reaction METRONIDAZOLE 09/07/2020 1 - Mental Status Change 6 - Diarrhea 8 - GI Upset 4 - Hives 14 - Other: See Comments 2 - Rash 12 - Shortness of Breath 16 - Unknown 11 - Vomiting Date Reviewed: 02/06/2023 Reviewed by: Dara Butler Jr., DO - Fully Assessed Reason for Visit: Results [95] Prescriptions as of 04/14/2023 - predniSONE (DELTASONE) 20 mg tablet Take 1 tablet by mouth once daily for 10 days. - chlordiazePOXIDE-clidiniu m (LIBRAX) 5-2.5 mg per capsule Take 1 capsule by mouth three times daily with meals. - ixporc-eosllsom-ugbbvre (ZENPEP) 40,000-126,000- 168,000 unit delayed release capsule Take 1 capsule by mouth three times daily with meals. - ergocalciferol 50,000 unit capsule (VITAMIN D2, DRISDOL) (take by mouth with food twice a week, ONE CAPSULE ON SUNDAY AND ONE ON SUNDAY) FOR A TOTAL OF 8 WEEKS. - escitalopram oxalate (LEXAPRO) 10 mg tablet Take 10 mg by mouth once daily. - ondansetron (ZOFRAN) 4 mg tablet Take 4 mg by mouth as needed. Problem List As Of Date 04/14/2023 Noted Resolved Cervicalgia [M54.2] 12/09/2021 Chronic pain of left knee [M25.562, G89.29] 12/09/2021 Chronic left shoulder pain [M25.512, G89.29] 12/09/2021 Recurrent infections [B99.9] 12/09/2021 Urticaria [L50.9] 12/09/2021 Chronic fatigue [R53.82] 12/09/2021 Bilateral arm pain [M79.601, M79.602] 12/08/2022 Chronic bilateral low back pain without sciatic*12/08/2022 Abnormal findings on imaging test [R93.89] 12/08/2022 Photosensitivity [L56.8] 12/08/2022 Encounter Status:Closed by ANALIA ESTEVEZ RN on 04/14/23 [facility] HNO ID: [id number] Author: Yessi Adkins magazine filler Service: Radiology Author Type: Compensation Business Partner Type: Allied [facility] Filed: 04/13/2023 3:14 PM Note Text: Radiology Service Progress Note DATE OF SERVICE: April 13, 2023 TIME: 3:13 PM PATIENT IDENTITY VERIFICATION COMPLETED USING TWO (2) STANDARD IDENTIFIERS: Name and Date of confirmed by patient verbally and Name and Date of confirmed by identification band. FALL SCREENING: Has the patient had 2 falls in the last year or 1 fall with injury or currently using an Ambulatory Assistive Device (Walker, Cane, Wheelchair, Crutches, etc.)? No PATIENT GENDER DATA: Female. status: : No status: NO. PATIENT RELEVANT IMPLANT DATA REVIEWED: Yes ALLERGIES: Reviewed and unchanged CONTRAST ALLERGY: NO. EXAM: MRI - CONTRAST TYPE: GROUP II PERIPHERAL IV DATA: Ambulatory: A peripheral IV was started in the Right antecubital site with a Angio cath: 22 gauge. RADIOLOGY DEPARTMENT: MR; Exam(s) Completed: Body: Pancreas/Biliary SIGNATURE: Yessi Adkins magazine filler PATIENT NAME: Rosa Alonzo DATE: April 13, 2023 TIME: 3:13 PM [facility] MRI ABDOMEN WO/W IVCONon MRI ABDOMEN WO/W IVCON * * *Final Report* * * DATE OF EXAM: Apr 13 2023 3:23PM [facility] 0689 - MRI ABDOMEN WO/W IVCON / PROCEDURE REASON: Chronic recurrent pancreatitis (HCC) * * * * Physician Interpretation * * * * MRI OF THE ABDOMEN WITHOUT AND WITH CONTRAST: CLINICAL HISTORY: Chronic recurrent pancreatitis (HCC) . COMPARISON: CT abdomen pelvis 10/18/2022 TECHNIQUE: Magnet: 1.5T scanner. Multiplanar MRI of the abdomen with multiple sequences, including both pre- and post-contrast imaging. Additional MR cholangiopancreatography sequences were performed. Contrast: IV: 10 ml of Dotarem RESULT: Motion degraded examination. Pancreas: Pancreas is normal in precontrast T1 signal intensity with no solid masses or main pancreatic duct dilatation. No pancreatic divisum. Biliary: No intrahepatic or extrahepatic biliary ductal dilation. No choledocholithiasis or stricture. Gallbladder: No cholelithiasis or gallbladder wall thickening. Liver: No mass. No MR findings of hepatic steatosis. No thrombus in the portal venous system (splenic vein, main portal vein, left and right anterior and right posterior portal vein branches). Spleen: No focal splenic lesions. Spleen is normal in size. Kidneys: Kidneys enhance symmetrically without hydroureteronephrosis or enhancing renal masses. 1.4 cm right renal cyst. Adrenal glands: Adrenal glands are normal. Lymph nodes: No lymphadenopathy by size criteria. Mesentery: No ascites. Osseous structures: No aggressive osseous lesions. IMPRESSION: No MR findings of acute or chronic pancreatitis. No pancreatic divisum. Shipping Supervisor: FRANCISCO Transcribe Date/Time: Apr 13 2023 3:30P Dictated by : ERIC VILLAR MD This examination was interpreted and the report reviewed and electronically signed by: ERIC VILLAR MD on Apr 13 2023 3:50PM EST [id number] [facility] CNPN Telephone (RGFV) ----- ROSA ALONZO ([id number]) 2000 F Date Time Provider Department 04/12/23 SALMA ALTAMIRANO ([facility] During your visit today, we recorded the following information about you: Allergies As of Date: 04/12/2023 Noted Allergy Reaction METRONIDAZOLE 09/07/2020 1 - Mental Status Change 6 - Diarrhea 8 - GI Upset 4 - Hives 14 - Other: See Comments 2 - Rash 12 - Shortness of Breath 16 - Unknown 11 - Vomiting Date Reviewed: 02/06/2023 Reviewed by: Dara Butler Jr., DO - Fully Assessed Reason for Visit: APPT REMINDER [Other] Cmt: APPT REMINDER CALL, LEFT MESSAGE REGARDING DIRECTIONS TO OFFICE AND # IN NEED TO CANCEL Prescriptions as of 04/12/2023 - predniSONE (DELTASONE) 20 mg tablet Take 1 tablet by mouth once daily for 10 days. - chlordiazePOXIDE-clidiniu m (LIBRAX) 5-2.5 mg per capsule Take 1 capsule by mouth three times daily with meals. - cvnwrs-icgnieex-fktvril (ZENPEP) 40,000-126,000- 168,000 unit delayed release capsule Take 1 capsule by mouth three times daily with meals. - ergocalciferol 50,000 unit capsule (VITAMIN D2, DRISDOL) (take by mouth with food twice a week, ONE CAPSULE ON SUNDAY AND ONE ON SUNDAY) FOR A TOTAL OF 8 WEEKS. - escitalopram oxalate (LEXAPRO) 10 mg tablet Take 10 mg by mouth once daily. - ondansetron (ZOFRAN) 4 mg tablet Take 4 mg by mouth as needed. Problem List As Of Date 04/12/2023 Noted Resolved Cervicalgia [M54.2] 12/09/2021 Chronic pain of left knee [M25.562, G89.29] 12/09/2021 Chronic left shoulder pain [M25.512, G89.29] 12/09/2021 Recurrent infections [B99.9] 12/09/2021 Urticaria [L50.9] 12/09/2021 Chronic fatigue [R53.82] 12/09/2021 Bilateral arm pain [M79.601, M79.602] 12/08/2022 Chronic bilateral low back pain without sciatic*12/08/2022 Abnormal findings on imaging test [R93.89] 12/08/2022 Photosensitivity [L56.8] 12/08/2022 Encounter Status:Closed by SALMA SIMPSON on 04/12/23 [facility] C diff Tox gens Stl Ql RUCHI+p robeon 03-29-2023 C. difficile toxin genes RUCHI+probe Ql (Stl) Negative Normal Negative for C. difficile toxin by PCR [facility] Comment on above: Order Comment: Speci men Type: STOOL SPECIMENOrdering Facility: [facility] Address: [address] [place] [address] Performed By: #### 5 4067-4 ####[facility] LABCLIA [id number] [place] [address] [place] CNPMckayla 03-23-2023 CNPN Telephone ([facility]) ----- ROSA ALONZO ([id number]) 2000 F Date Time Provider Department 03/23/23 DARA BUTLER JR [facility] During your visit today, we recorded the following information about you: Eva Wynne 03/23/2023 9:03 AM Signed Rosa Alonzo is calling Dara L Hykes Jr., DO today to let provider know that she did test positive for CDIFF. She had this testing done through [facility]. She is working on getting faxed results to office. Pt states she feels fine, no symptoms but would like to follow up with nurse. Please advise Patient has been identified by name and birthdate. Duration of symptoms: N/A Person calling: self Call patient at: at home [phone] (home) [phone] (cell) Was an appointment scheduled: No Closing statement: Results or non-symptom based questions: Thank you for calling [facility], your call will be returned within the next business day. Analia Liao RN 03/30/2023 10:33 AM Signed ----- Message from Dara Butler Jr., DO sent at 03/30/2023 7:36 AM EDT ----- C.diff negative DO Herb Patton Jr., Jennifer RN 03/30/2023 10:34 AM Signed Patient [facility] Analia Estevez RN Allergies As of Date: 03/23/2023 Noted Allergy Reaction METRONIDAZOLE 09/07/2020 1 - Mental Status Change 6 - Diarrhea 8 - GI Upset 4 - Hives 14 - Other: See Comments 2 - Rash 12 - Shortness of Breath 16 - Unknown 11 - Vomiting Date Reviewed: 02/06/2023 Reviewed by: Dara Butler Jr., DO - Fully Assessed Reason for Visit: Results [95] Prescriptions as of 03/30/2023 - chlordiazePOXIDE-clidiniu m (LIBRAX) 5-2.5 mg per capsule Take 1 capsule by mouth three times daily with meals. - mqrsjx-ikibqdkv-idaoqsy (ZENPEP) 40,000-126,000- 168,000 unit delayed release capsule Take 1 capsule by mouth three times daily with meals. - ergocalciferol 50,000 unit capsule (VITAMIN D2, DRISDOL) (take by mouth with food twice a week, ONE CAPSULE ON SUNDAY AND ONE ON SUNDAY) FOR A TOTAL OF 8 WEEKS. - escitalopram oxalate (LEXAPRO) 10 mg tablet Take 10 mg by mouth once daily. - ondansetron (ZOFRAN) 4 mg tablet Take 4 mg by mouth as needed. Problem List As Of Date 03/23/2023 Noted Resolved Cervicalgia [M54.2] 12/09/2021 Chronic pain of left knee [M25.562, G89.29] 12/09/2021 Chronic left shoulder pain [M25.512, G89.29] 12/09/2021 Recurrent infections [B99.9] 12/09/2021 Urticaria [L50.9] 12/09/2021 Chronic fatigue [R53.82] 12/09/2021 Bilateral arm pain [M79.601, M79.602] 12/08/2022 Chronic bilateral low back pain without sciatic*12/08/2022 Abnormal findings on imaging test [R93.89] 12/08/2022 Photosensitivity [L56.8] 12/08/2022 Encounter Status:Closed by ANALIA ESTEVEZ RN on 03/30/23 Normal [facility] CNPNon 03-22-2023 CNPN Telephone (RIOS) ----- ROSA ALONZO ([id number]) 2000 F Date Time Provider Department 03/22/23 NAE IBARRA During your visit today, we recorded the following information about you: Nae Ibarra MD 03/22/2023 9:38 PM Signed Please Call patient if MyChart note not read to review results/released to My Chart if tests completed at [facility]: Improved/Normal labs and no inflammation. Take over the counter vitamin D 4000 International Units daily with food. Happy to further review and discuss at follow up visit. Continue rest of treatment plan per instructions at last office visit. Thank you. 03/16/23 borderline cholesterol 202;normal rest of cbc, cmp, crp <0.3, esr 2, vitamin D 32.5, lipase 20, amylase 43;negatvei celic, IGG subclasses;negative phani; 12/08/22 low vitamin D 24.5;normal cbc, cmp, esr 2, crp<0.3, uric acid 3.5, vitamin b12-594;negative rf<10, ccp<15, phani ifa, hepatitis panel, quantiferon tb; Chiara Pizarro MA 03/23/2023 7:59 AM Signed Pt was notified via . Allergies As of Date: 03/22/2023 Noted Allergy Reaction METRONIDAZOLE 09/07/2020 1 - Mental Status Change 6 - Diarrhea 8 - GI Upset 4 - Hives 14 - Other: See Comments 2 - Rash 12 - Shortness of Breath 16 - Unknown 11 - Vomiting Date Reviewed: 02/06/2023 Reviewed by: Dara Butler Jr., DO - Fully Assessed Reason for Visit: Results [95] Prescriptions as of 03/23/2023 - chlordiazePOXIDE-clidiniu m (LIBRAX) 5-2.5 mg per capsule Take 1 capsule by mouth three times daily with meals. - predniSONE (DELTASONE) 20 mg tablet Take 1 tablet by mouth once daily for 14 days. - kkrswl-wxkgcxfh-eiekdeo (ZENPEP) 40,000-126,000- 168,000 unit delayed release capsule Take 1 capsule by mouth three times daily with meals. - ergocalciferol 50,000 unit capsule (VITAMIN D2, DRISDOL) (take by mouth with food twice a week, ONE CAPSULE ON SUNDAY AND ONE ON SUNDAY) FOR A TOTAL OF 8 WEEKS. - escitalopram oxalate (LEXAPRO) 10 mg tablet Take 10 mg by mouth once daily. - ondansetron (ZOFRAN) 4 mg tablet Take 4 mg by mouth as needed. Problem List As Of Date 03/22/2023 Noted Resolved Cervicalgia [M54.2] 12/09/2021 Chronic pain of left knee [M25.562, G89.29] 12/09/2021 Chronic left shoulder pain [M25.512, G89.29] 12/09/2021 Recurrent infections [B99.9] 12/09/2021 Urticaria [L50.9] 12/09/2021 Chronic fatigue [R53.82] 12/09/2021 Bilateral arm pain [M79.601, M79.602] 12/08/2022 Chronic bilateral low back pain without sciatic*12/08/2022 Abnormal findings on imaging test [R93.89] 12/08/2022 Photosensitivity [L56.8] 12/08/2022 Encounter Status:Closed by CHIARA PIZARRO on 03/23/23 Normal [facility] CNPNon 03-21-2023 CNPN Telephone (ELNA) ----- ROSA ALONZO ([id number]) 2000 F Date Time Provider Department 03/21/23 DARA BUTLER JR During your visit today, we recorded the following information about you: Analia Estevez RN 03/21/2023 11:00 AM Signed ----- Message from Dara Butler Jr., DO sent at 03/21/2023 7:46 AM EDT ----- Labs essentially unremarkable including negative celiac DO Herb Patton Jr., Jennifer RN 03/21/2023 11:03 AM Signed Results were viewed by patient per [employer]. Analia Estevez RN Allergies As of Date: 03/21/2023 Noted Allergy Reaction METRONIDAZOLE 09/07/2020 1 - Mental Status Change 6 - Diarrhea 8 - GI Upset 4 - Hives 14 - Other: See Comments 2 - Rash 12 - Shortness of Breath 16 - Unknown 11 - Vomiting Date Reviewed: 02/06/2023 Reviewed by: Dara Butler Jr., DO - Fully Assessed Reason for Visit: Results [95] Prescriptions as of 03/21/2023 - chlordiazePOXIDE-clidiniu m (LIBRAX) 5-2.5 mg per capsule Take 1 capsule by mouth three times daily with meals. - predniSONE (DELTASONE) 20 mg tablet Take 1 tablet by mouth once daily for 14 days. - cnktug-tzotsims-ewrmkoh (ZENPEP) 40,000-126,000- 168,000 unit delayed release capsule Take 1 capsule by mouth three times daily with meals. - ergocalciferol 50,000 unit capsule (VITAMIN D2, DRISDOL) (take by mouth with food twice a week, ONE CAPSULE ON SUNDAY AND ONE ON SUNDAY) FOR A TOTAL OF 8 WEEKS. - escitalopram oxalate (LEXAPRO) 10 mg tablet Take 10 mg by mouth once daily. - ondansetron (ZOFRAN) 4 mg tablet Take 4 mg by mouth as needed. Problem List As Of Date 03/21/2023 Noted Resolved Cervicalgia [M54.2] 12/09/2021 Chronic pain of left knee [M25.562, G89.29] 12/09/2021 Chronic left shoulder pain [M25.512, G89.29] 12/09/2021 Recurrent infections [B99.9] 12/09/2021 Urticaria [L50.9] 12/09/2021 Chronic fatigue [R53.82] 12/09/2021 Bilateral arm pain [M79.601, M79.602] 12/08/2022 Chronic bilateral low back pain without sciatic*12/08/2022 Abnormal findings on imaging test [R93.89] 12/08/2022 Photosensitivity [L56.8] 12/08/2022 Encounter Status:Closed by ANALIA ESTEVEZ RN on 03/21/23 Normal [facility] 25(OH)D3 SerPl-baronon 2022 25-hydroxyvitamin D3 [Mass/Vol] 32.5 ng/mL Normal 31.0-80.0 [facility] Comment on above: Order Comment: Speci men Type: BLOOD SPECIMENOrdering Facility: [facility] Address: [address] [place], [place] [address] Result Comment: Clas sification of 25 [place] Vitamin D status: Deficiency/Insufficiency: < or = 30 ng/ml. Sufficiency/Optimal Levels: 31-80 ng/mL Toxicity: > 100 ng/mL. Test performed by chemiluminescent immunoassay. Performed By: #### 1 989-3 ####[facility]CLIA [id number] [facility] [id number] [place] [address] [place] Amylase SerPl-cCncon 023 Amylase [Catalytic activity/Vol] 43 U/L Normal 30-104 [facility] Comment on above: Order Comment: Speci men Type: BLOOD SPECIMENOrdering Facility: [facility] Address: [address] [address] Performed By: #### 2 4331-1 ####[facility] LABCLIA [id number] [address] LABCLIA [id number] [place] [address]#### 1798-8, 1987-, 3039- ####[facility] LABCLIA [id number] [address] [place] [facility] CBC W Auto Differential pane l (Bld)on 03-16-2023 Basophils (Bld) [#/Vol] 0.06 10*3/uL Normal <0.11 [facility] Comment on above: Order Comment: Speci men Type: BLOOD SPECIMEN [facility] Address: [address] [address] Performed By: #### 5 7021-8 #### [facility] CLIA [id number] [address] [place], [place] [address] Basophils/100 WBC (Bld) 1.4 % Normal [facility] Comment on above: Order Comment: Speci men Type: BLOOD SPECIMEN Ordering Facility: [facility] Address: [address] Performed By: #### 5 7021-8 #### [facility] CLIA [id number] [address] [place] [address] Differential cell count method Nom (Bld) Auto Normal [facility] Comment on above: Order Comment: Speci men Type: BLOOD SPECIMEN [facility]ing Facility: [facility] Address: [address] [address] Performed By: #### 5 7021-8 #### [facility] CLIA [id number] [address] [place] [address] Eosinophils (Bld) [#/Vol] 0.25 10*3/uL Normal <0.46 [facility] Comment on above: Order Comment: Speci men Type: BLOOD SPECIMEN [facility]ing [facility]: [facility] Address: [address] [place] [address] Performed By: #### 5 7021-8 #### [facility] CLIA [id number] [address] [place] [address] Eosinophils/100 WBC (Bld) 5.6 % Normal [facility] Comment on above: Order Comment: Speci men Type: BLOOD SPECIMEN [facility]ing Facility: [facility] Address: [address] [place] [address] Performed By: #### 5 7021-8 #### [facility] CLIA [id number] [address] [place] [address] Erythrocyte distribution width (RBC) [Ratio] 11.6 % Normal 11.5-15.0 [facility] Comment on above: Order Comment: Speci men Type: BLOOD SPECIMEN [facility]ing Facility: [facility] Address: [address] [place] [address] Performed By: #### 5 7021-8 #### [facility] CLIA [id number] [address] [place] [address] Hematocrit (Bld) [Volume fraction] 41.7 % Normal 36.0-46.0 [facility] Comment on above: Order Comment: Speci men Type: BLOOD SPECIMEN [facility]ing [facility]: [facility] Address: [address] [place] [address] Performed By: #### 5 7021-8 #### [facility] CLIA [id number] [address] [place] [address] Hemoglobin (Bld) [Mass/Vol] 14.1 g/dL Normal 11.5-15.5 [facility] Comment on above: Order Comment: Speci men Type: BLOOD SPECIMEN [facility]ing [facility]: [facility] Address: [address] [address] Performed By: #### 5 7021-8 #### [facility] CLIA [id number] [address] [place] [address] Immature granulocytes (Bld) [#/Vol] 10*3/uL Normal <0.10 [facility] Comment on above: Order Comment: Speci men Type: BLOOD SPECIMEN [facility]ing [facility]: [facility] Address: [address] [address] Performed By: #### 5 7021-8 #### [facility] CLIA [id number] [address] [place] [address] Immature granulocytes/100 WBC (Bld) 0.2 % Normal [facility] Comment on above: Order Comment: Speci men Type: BLOOD SPECIMEN [facility]ing [facility]: [facility] Address: [address] [address] Performed By: #### 5 7021-8 #### [facility] CLIA [id number] [address] [place] [address] Lymphocytes (Bld) [#/Vol] 2.17 10*3/uL Normal 1.00-4.00 [facility] Comment on above: Order Comment: Speci men Type: BLOOD SPECIMEN [facility]ing [facility]: [facility] Address: [address] [address] Performed By: #### 5 7021-8 #### [facility] CLIA [id number] [address] [place] [address] Lymphocytes/100 WBC (Bld) 48.9 % Normal [facility] Comment on above: Order Comment: Speci men Type: BLOOD SPECIMEN [facility]ing [facility]: [facility] Address: [address] [place] [address] Performed By: #### 5 7021-8 #### [facility] CLIA [id number] [address] [place] [address] 50556 MCH (RBC) [Entitic mass] 31.5 pg Normal 26.0-34.0 [facility] Comment on above: Order Comment: Speci men Type: BLOOD SPECIMEN [facility]: [facility] Address: [address] [address] Performed By: #### 5 7021-8 #### [facility] CLIA [id number] [address] [place] [address]306 MCHC (RBC) [Mass/Vol] 33.8 g/dL Normal 30.5-36.0 [facility] Comment on above: Order Comment: Speci men Type: BLOOD SPECIMEN [facility] Address: [address] [address] Performed By: #### 5 7021-8 #### [facility] CLIA [id number] [address] [place] [address] 07514 MCV (RBC) [Entitic vol] 93.1 fL Normal 80.0-100.0 [facility] Comment on above: Order Comment: Speci men Type: BLOOD SPECIMEN [facility]: [facility] Address: [address] [address] Performed By: #### 5 7021-8 #### [facility] CLIA [id number] [address] [place] [address]12 Monocytes (Bld) [#/Vol] 0.36 10*3/uL Normal <0.87 [facility] Comment on above: Order Comment: Speci men Type: BLOOD SPECIMEN [facility]ing [facility]: [facility] Address: [address] [address] Performed By: #### 5 7021-8 #### [facility] CLIA [id number] [address] [place] [address] 03429 Monocytes/100 WBC (Bld) 8.1 % Normal [facility] Comment on above: Order Comment: Speci men Type: BLOOD SPECIMEN [facility] Address: [address] [address] Performed By: #### 5 7021-8 #### [facility] CLIA [id number] [address] [place] [address]489 Neutrophils (Bld) [#/Vol] 1.59 10*3/uL Normal 1.45-7.50 [facility] Comment on above: Order Comment: Speci men Type: BLOOD SPECIMEN [facility] Address: [address] [place] [address] Performed By: #### 5 7021-8 #### [facility] CLIA [id number] [address] [place] [address] 73480 Neutrophils/100 WBC (Bld) 35.8 % Normal [facility] Comment on above: Order Comment: Speci men Type: BLOOD SPECIMEN [facility] Address: [address] [place] [address] Performed By: #### 5 7021-8 #### [facility] CLIA [id number] [address] [place] [address] 99423 Nucleated RBC (Bld) [#/Vol] 10*3/uL Normal <0.01 [facility] Comment on above: Order Comment: Speci men Type: BLOOD SPECIMEN [facility] Address: [address] [place] [address] Performed By: #### 5 7021-8 #### [facility] CLIA [id number] [address] [place] [address] 95910 Nucleated RBC/100 WBC (Bld) [Ratio] 0.0 /100 WBC Normal [facility] Comment on above: Order Comment: Speci men Type: BLOOD SPECIMEN [facility] Address: [address] [place] [address] Performed By: #### 5 7021-8 #### [facility] CLIA [id number] [address] [place] [address] 21675 Platelet mean volume (Bld) [Entitic vol] 10.4 fL Normal 9.0-12.7 [facility] Comment on above: Order Comment: Speci men Type: BLOOD SPECIMEN [facility] Address: [address] [address] Performed By: #### 5 7021-8 #### [facility] CLIA [id number] [address] [place] [address] Platelets (Bld) [#/Vol] 196 10*3/uL Normal 150-400 [facility] Comment on above: Order Comment: Speci men Type: BLOOD SPECIMEN [facility] Address: [address] [place] [address] Performed By: #### 5 7021-8 #### [facility] CLIA [id number] [address] [place] [address] 83551 RBC (Bld) [#/Vol] 4.48 10*6/uL Normal 3.90-5.20 [facility] Comment on above: Order Comment: Speci men Type: BLOOD SPECIMEN [facility]: [facility] Address: [address] [place] [address] Performed By: #### 5 7021-8 #### [facility] CLIA [id number] [address] [place] [address]49 WBC (Bld) [#/Vol] 4.44 10*3/uL Normal 3.70-11.00 [facility] Comment on above: Order Comment: Speci men Type: BLOOD SPECIMEN [facility] Address: [address] [place] [address] Performed By: #### 5 7021-8 #### [facility] CLIA [id number] [address] [place] [address] 9[address] CELIAC SCREENon 03-16-2023 GLIAD DEAMIDATED IGA QUAL Negative Normal Negative, Test not Indicated [facility] Comment on above: Order Comment: Speci men Type: BLOOD SPECIMENOrdering Facility: [facility] Address: [address] [place] [address] Result Comment: This is used as an aid in diagnosis of celiac disease. Clinical correlation is required. The following results were obtained with an [employer] QUANTA Lite Gliadin IgA LUKE Gliadin. Gliadin IgA values obtained with different manufacturers' assay methods may not be used interchangeably. The magnitude of the reported IgA levels cannot be correlated to an endpoint titer. Performed By: #### L [id number] ####[facility]CLIA [id number] [address] Gliadin peptide IgA Qn (S) 3 Units Normal <20 [facility] Comment on above: Order Comment: Reilly men Type: BLOOD SPECIMENOrdering Facility: [facility] Address: [address] [place] [address] Performed By: #### L [id number] ####[facility] LABCLIA [id number] [address] INTERPRETATION No serological evide nce of celiac disease, however, if celiac disease is clinically suspected and patient is not on gluten-free diet, histological diagnosis may be considered. HLA testing may help with risk assessment. Normal [facility] Comment on above: Order Comment: Reilly medel Type: BLOOD SPECIMENOrdering Facility: [facility] Address: [address] [place] [address] Performed By: #### L [id number] ####[facility] [id number] [address] TRANSGLUTAMINASE IGA ABS INTERPRETATION Negative Normal Negative [facility] Comment on above: Order Comment: Reilly medel Type: BLOOD SPECIMENOrdering Facility: [facility] Address: [address] [place] [address] Result Comment: The following results were obtained with [employer] QUANTA Lite R h-tTG IgA LUKE.???R h-tTG IgA values obtained with different manufacturers' assay methods may not be used interchangeably. The magnitude of the reported IgA levels cannot be corelated to an endpoint???concentration. This is used as an aid in diagnosis of celiac disease. Clinical correlation is required. Performed By: #### L [id number] ####[facility] LABCLIA [id number] [place] [address] [place] tTG IgA Qn (S) <2 Normal <4 [facility] Comment on above: Order Comment: Speci men Type: BLOOD SPECIMENOrdering Facility: [facility] Address: [address] [place] [address] Performed By: #### L [id number] ####[facility] LABCLIA [id number] [address] [place] CRP SerPl-mCncon 03-16-2023 CRP [Mass/Vol] mg/L Normal <0.9 [facility] Comment on above: Order Comment: Speci men Type: BLOOD SPECIMENOrdering Facility: [facility] Address: [address] [place] [address] Performed By: #### 2 4331-1 ####[facility] LABCLIA [id number] [address] LABCLIA [id number] [place] [id number]#### 1798-8, 1988-5, 3040-3 ####[facility] LABCLIA [id number] [place] [address] [place] Comprehensive metabolic 2000 panelon 03-16-2023 Albumin [Mass/Vol] 4.9 g/dL Normal 3.9-4.9 [facility] Comment on above: Order Comment: Speci men Type: BLOOD SPECIMENOrdering Facility: [facility] Address: [address] [place], [place] [address] Performed By: #### 2 4323-8 ####[facility] LABCLIA [id number] [place] [address] ALP [Catalytic activity/Vol] 55 U/L Normal 34-123 [facility] Comment on above: Order Comment: Speci men Type: BLOOD SPECIMENOrdering Facility: [facility] Address: [address] [place] [address] Performed By: #### 2 4323-8 ####[facility] LABCLIA [id number] [place] [address] ALT [Catalytic activity/Vol] 10 U/L Normal 7-38 [facility] Comment on above: Order Comment: Speci men Type: BLOOD SPECIMENOrdering Facility: [facility] Address: [address] [place] [address] Performed By: #### 2 4323-8 ####[facility] LABCLIA [id number] [place] [address] Anion gap [Moles/Vol] 11 mmol/L Normal 9-18 [facility] Comment on above: Order Comment: Speci men Type: BLOOD SPECIMENOrdering Facility: [facility] Address: [address] [place] [address] Performed By: #### 2 4323-8 ####[facility] LABCLIA [id number] [place] [address] AST [Catalytic activity/Vol] 16 U/L Normal 13-35 [facility] Comment on above: Order Comment: Speci men Type: BLOOD SPECIMENOrdering Facility: [facility] Address: [address] [place] [address] Performed By: #### 2 4323-8 ####[facility] LABCLIA [id number] [place] [address] Bilirubin [Mass/Vol] 0.4 mg/dL Normal 0.2-1.3 [facility] Comment on above: Order Comment: Speci men Type: BLOOD SPECIMENOrdering Facility: [facility] Address: [address] [place] [address] Performed By: #### 2 4323-8 ####[facility] LABCLIA [id number] [place] [address] Calcium [Mass/Vol] 9.8 mg/dL Normal 8.5-10.2 [facility] Comment on above: Order Comment: Speci men Type: BLOOD SPECIMENOrdering Facility: [facility] Address: [address] [address] Performed By: #### 2 4323-8 ####[facility] LABCLIA [id number] [place] [address] Chloride [Moles/Vol] 105 mmol/L Normal 97-105 [facility] Comment on above: Order Comment: Speci men Type: BLOOD SPECIMENOrdering Facility: [facility] Address: [address] [place] [address] Performed By: #### 2 4323-8 ####[facility] LABCLIA [id number] [place] [address] CO2 [Moles/Vol] 26 mmol/L Normal 22-30 [facility] Comment on above: Order Comment: Speci men Type: BLOOD SPECIMENOrdering Facility: [facility] Address: [address] [place] [address] Performed By: #### 2 4323-8 ####[facility] LABCLIA [id number] [place] [address] Creatinine [Mass/Vol] 0.71 mg/dL Normal 0.58-0.96 [facility] Comment on above: Order Comment: Speci men Type: BLOOD SPECIMENOrdering Facility: [facility] Address: [address] [place] [address] Performed By: #### 2 4323-8 ####[facility] LABCLIA [id number] [place] [address] Creatinine and Glomerular filtration rate.predicted panel (S/P/Bld) 122 mL/min/1.73m??? Normal >=60 [facility] Comment on above: Order Comment: Speci men Type: BLOOD SPECIMENOrdering Facility: [facility] Address: [address] [place] [address] Result Comment: Ny mated Glomerular Filtration Rate (eGFR) is calculated using the 2020 CKD-EPI creatinine equation. This equation utilizes serum creatinine, sex, and age as parameters. The creatinine assay has traceable calibration to isotope dilution-mass spectrometry. Refer to KDIGO guidelines for clinical interpretation. In patients with unstable renal function, e.g. those with acute kidney injury, the eGFR may not accurately reflect actual GFR. Performed By: #### 2 4323-8 ####[facility] LABCLIA [id number] [place] [address] Glucose [Mass/Vol] 102 mg/dL High 74-99 [facility] Comment on above: Order Comment: Reilly medel Type: BLOOD SPECIMENOrdering Facility: [facility] Address: [address] [place] [phone] Result Comment: The [place] Diabetes Association (ADA) provides guidance for cutoff values for fasting glucose and random glucose. The ADA defines fasting as no caloric intake for at least 8 hours. Fasting plasma glucose results between 100 to 125 mg/dL indicate increased risk for diabetes (prediabetes). Fasting plasma glucose results greater than or equal to 126 mg/dL meet the criteria for diagnosis of diabetes. In the absence of unequivocal hyperglycemia, results should be confirmed by repeat testing. In a patient with classic symptoms of hyperglycemia or hyperglycemic crisis, random plasma glucose results greater than or equal to 200 mg/dL meet the criteria for diagnosis of diabetes. Reference: Standards of Medical Care in Diabetes 2016, [place] Diabetes Association. Diabetes Care. 2016.39(Suppl 1). Performed By: #### 2 4323-8 ####[facility] LABCLIA [id number] [place] [address] Potassium [Moles/Vol] 4.4 mmol/L Normal 3.7-5.1 [facility] Comment on above: Order Comment: Reilly medel Type: BLOOD SPECIMENOrdering Facility: [facility] Address: [address] [place] [address] Performed By: #### 2 4323-8 ####[facility] LABCLIA [id number] [place] [address] Protein [Mass/Vol] 7.2 g/dL Normal 6.3-8.0 [facility] Comment on above: Order Comment: Speci men Type: BLOOD SPECIMENOrdering Facility: [facility] Address: [address] [place] [address] Performed By: #### 2 4323-8 ####[facility] LABCLIA [id number] [place] [address] Sodium [Moles/Vol] 142 mmol/L Normal 136-144 [facility] Comment on above: Order Comment: Speci men Type: BLOOD SPECIMENOrdering Facility: [facility] Address: [address] [place] [address] Performed By: #### 2 4323-8 ####[facility] LABCLIA [id number] [place] [address] Urea nitrogen [Mass/Vol] 10 mg/dL Normal 7-21 [facility] Comment on above: Order Comment: Speci men Type: BLOOD SPECIMENOrdering Facility: [facility] Address: [address] [place] [address] Performed By: #### 2 4323-8 ####[facility] LABCLIA [id number] [place] [address] ESR Westergren method (Bld) [Velocity]on 03-16-2023 ESR (Bld) [Velocity] 2 mm/h Normal 0-20 [facility] Comment on above: Order Comment: Speci men Type: BLOOD SPECIMENOrdering Facility: [facility] Address: [address] [place] [address] Performed By: #### 4 537-7 ####[facility]CLIA [id number] [facility] [id number] [address] [place] IGG SUBCLASS 1,2,3,4on 03-16 IgG subclass 1 (S) [Mass/Vol] 632.6 mg/dL Normal 382.4-928.6 [facility] Comment on above: Order Comment: Speci men Type: BLOOD SPECIMENOrdering Facility: [facility] Address: [address] [place], [place] [address] Performed By: #### I [id number] ####[facility]CLIA [id number] [place] [address] [place] IgG subclass 2 (S) [Mass/Vol] 334.9 mg/dL Normal 241.8-700.3 [facility] Comment on above: Order Comment: Speci men Type: BLOOD SPECIMENOrdering Facility: [facility] Address: [address] [place] [address] Performed By: #### I [id number] ####[facility] LABIA [id number] [place] [address] [place] IgG subclass 3 (S) [Mass/Vol] 32.5 mg/dL Normal 21.8-176.1 [facility] Comment on above: Order Comment: Speci men Type: BLOOD SPECIMENOrdering Facility: [facility] Address: [address] [place] [address] Performed By: #### I [id number] ####[facility] LABIA [id number] [place] [address] [place] IgG subclass 4 (S) [Mass/Vol] 43.3 mg/dL Normal 3.9-86.4 [facility] Comment on above: Order Comment: Speci men Type: BLOOD SPECIMENOrdering Facility: [facility] Address: [address] [place], [place] [address] Performed By: #### I G1234 ####[facility] LABIA [id number] [place] [address] [place] IgA SerPl-mCncon 03-16-2023 IgA [Mass/Vol] 174 mg/dL Normal 70-400 [facility] Comment on above: Order Comment: Speci men Type: BLOOD SPECIMENOrdering Facility: [facility] Address: [address] [place] [address] Performed By: #### 2 458-8 ####[facility] LABCLIA [id number] [place] [address] [place] Lipase SerPl-cCncon 03-16-20 23 Lipase [Catalytic activity/Vol] 20 U/L Normal 16-61 [facility] Comment on above: Order Comment: Speci men Type: BLOOD SPECIMENOrdering Facility: [facility] Address: [address] [place], [place] [address] Performed By: #### 2 4331-1 ####[facility] LABCLIA [id number] [address] LABCLIA [id number] [place] [address]#### 1798-8, 1987-11, 3039-09 ####[facility] LABCLIA [id number] [place] [address] [place] Lipid 1996 panelon 3 Cholesterol [Mass/Vol] 202 mg/dL High <200 [facility] Comment on above: Order Comment: Speci men Type: BLOOD SPECIMENOrdering Facility: [facility] Address: [address] [place], [place] [address] Result Comment: <200 mg/dL, Desirable 200-239 mg/dL, Borderline high >239 mg/dL, High Performed By: #### 2 4331-1 ####[facility] LABCLIA [id number] [address] LABCLIA [id number] [place] [address]#### 1798-8, 1987-11, 3039-09 ####[facility] LABCLIA [id number] [address] [place] Cholesterol in HDL [Mass/Vol] 63 mg/dL Normal >39 [facility] Comment on above: Order Comment: Speci men Type: BLOOD SPECIMENOrdering Facility: [facility] Address: [address] [place] [id number] Result Comment: 40-5 9 mg/dL, Acceptable >59 mg/dL, High: Negative risk factor for coronary heart disease <40 mg/dL, Low: Positive risk factor for coronary heart disease Performed By: #### 2 4331-1 ####[facility] LABCLIA [id number] [address] [address] [facility] LABCLIA [id number] [place] [id number]#### 1798-8, 1987-11, 3039-09 ####[facility] LABCLIA [id number] [place] [address] [place] Cholesterol in LDL [Mass/Vol] 128 mg/dL High <100 [facility] Comment on above: Order Comment: Speci men Type: BLOOD SPECIMENOrdering Facility: [facility] Address: [address] [place], [place] [address] Result Comment: <100 mg/dL, Optimal 100-129 mg/dL, Near optimal/above optimal 130-159 mg/dL, Borderline high 160-189 mg/dL, High >189 mg/dL, Very high Secondary prevention optimal LDL Cholesterol levels are recommended to be < 70 mg/dL Performed By: #### 2 4331-1 ####[facility] LABCLIA [id number] [address] LABCLIA [id number] [place] [id number]#### 1798-8, 1987-11, 3039-09 ####[facility] LABCLIA [id number] [place] [id number] [place] Cholesterol in LDL/Cholesterol in HDL [Mass ratio] 2.03 {ratio} Normal <2.54 [facility] Comment on above: Order Comment: Speci men Type: BLOOD SPECIMENOrdering Facility: [facility] Address: [address] [place] [id number] Result Comment: Mark hoyt: 1. National Cholesterol Education Program ATP III Guideline At-A-Glance Quick Desk Reference: National Heart, Lung, and Blood [place]. National Institutes of Health. 2001: NIH Publication No. 01-3305. 2. An International Atherosclerosis Society position paper: global recommendations for the management of dyslipidemia: executive summary, Atherosclerosis. 2014: 232(2):410-413. Performed By: #### 2 4331-1 ####[facility] LABCLIA [id number] [address] LABCLIA [id number] [place] [address]#### 1798-8, 1987-11, 3039-09 ####[facility] LABCLIA [id number] [place] [address] [place] Cholesterol in VLDL [Mass/Vol] 11 mg/dL Normal <30 [facility] Comment on above: Order Comment: Speci men Type: BLOOD SPECIMENOrdering Facility: [facility] Address: [address] [place] [address] Performed By: #### 2 4331-1 ####[facility] LABCLIA [id number] [address] LABCLIA [id number] [place] [id number]#### 1798-8, 1987-11, 3039-09 ####[facility] LABCLIA [id number] [place] [address] [place] Cholesterol non HDL [Mass/Vol] 139 mg/dL High <130 [facility] Comment on above: Order Comment: Speci men Type: BLOOD SPECIMENOrdering Facility: [facility] Address: [address] [place] [address] Result Comment: <130 mg/dL, Optimal 130-159 mg/dL, Near optimal/above optimal 160-189 mg/dL, Borderline high 190-219 mg/dL, High >219 mg/dL, Very high Secondary prevention optimal non HDL Cholesterol levels are recommended to be <100 mg/dL Performed By: #### 2 4331-1 ####[facility] LABCLIA [id number] [address] [address] [facility] LABCLIA [id number] [place] [address]#### 1798-8, 1987-11, 3039-09 ####[facility] LABCLIA [id number] [address] [address] [place] Cholesterol.total/Cho lesterol in HDL [Mass ratio] 3.21 {ratio} Normal <5.10 [facility] Comment on above: Order Comment: Speci men Type: BLOOD SPECIMENOrdering Facility: [facility] Address: [address] [place] [address] Performed By: #### 2 4331-1 ####[facility] LABCLIA [id number] [place] [id number] [facility] LABCLIA [id number] [place] [id number]#### 1798-8, 1987-11, 3039-09 ####[facility] LABCLIA [id number] [place] [id number] [place] FASTING TIME 12 hrs Normal [facility] Comment on above: Order Comment: Speci men Type: BLOOD SPECIMENOrdering Facility: [facility] Address: [address] [place] [address] Performed By: #### 2 4331-1 ####[facility] LABCLIA [id number] [address] [address] [facility] LABCLIA [id number] [place] [id number]#### 1798-8, 1987-11, 3039-09 ####[facility] LABCLIA [id number] [place] [address] [place] Triglyceride [Mass/Vol] 56 mg/dL Normal <150 [facility] Comment on above: Order Comment: Speci men Type: BLOOD SPECIMENOrdering Facility: [facility] Address: [address] [place] [address] Result Comment: <150 mg/dL, Normal 150-199 mg/dL, Borderline high 200-499 mg/dL, High >499 mg/dL, Very high Performed By: #### 2 4331-1 ####[facility] LABIA [id number] [address] LABCLIA [id number] [place] [address]#### 1798-8, 1987-11, 3039-09 ####[facility] LABIA [id number] [place] [address] [place] Nuclear Ab IA Ql (S)on 03-16 PHANI SCR QUAL Negative Normal Negative [facility] Comment on above: Order Comment: Speci men Type: BLOOD SPECIMENOrdering Facility: [facility] Address: [address] [place] [address] Result Comment: The qualitative antinuclear antibody screen test performed using the following antigens: dsDNA, Chromatin, Ribosomal P, SS-A 60, SS-A 52, SS-B, Sm, SmRNP, AUTOMOBILE RENTAL REPRESENTATIVE A, AUTOMOBILE RENTAL REPRESENTATIVE 68, Scl-70, Samina-1, and Centromere B. Methodology: Multiplex flow immunoassay. Performed By: #### 4 7383-5 ####[facility] LABIA [id number] [place] [address] [place] CNOVon 02-06-2023 CNOV Office Visit ([facility] ) ----- ROSA ALONZO ([id number]) 2000 F Date Time Provider Department 02/06/23 10:30 AM DARA BUTLER JR [facility] During your visit today, we recorded the following information about you: Pulse Blood pressure Weight Height 67/minute 101/67 51.3 kg 1.626 m Last Period 01/13/23 Dara Butler Jr., DO 02/06/2023 10:49 AM Signed Consultation requested by Nae Ibarra for an opinion regarding abd pain. My final recommendations will be communicated back to the requesting physician by way of shared Medical record or letter to requesting physician via US mail. Patient presents with: Abdominal Pain HPI: Rosa Alonzo, 22 year old female, presents in the office today for abd pain. She reports chronic generalized abd pain with associated nausea and diarrhea. Pain is around 7 everyday. Food tends to make symptoms worse. Around 10 yrs ago she had episode of pancreatitis without clear etiology. Since she has had a couple episodes still without clear etiology. CT scan, US, HIDA, labs have been nondiagnostic. No family history of pancreatitis. Around two years ago she has c.diff after course of antibiotics and required two fecal transplants. History of IBS-D, limited benefit with dicyclomine. Last EGD was 2 yrs ago, last colonoscopy was 6 months ago. Past GI workup US: 10/31/22: (care everywhere) Liver normal Gallbaldder appears normal with no stones or sludge. No gallbladder wall thickening CBD 1.[address] abd/pel w/IV cont: 10/18/22: (scanned): Liver: no enlargement, atrophy, or focal lesion Biliary: no dilation or calcification Pancreas: haziness and poorly defined margins of the head of the pancreas. No stones of duct dilation Bowel: no visible mass, obstruction, or bowel wall thickening. Normal appendix Breath test glucose: 09/20/22: (care everywhere) ; FINDINGS: The patient brushed teeth at 10:13 AM prior to baseline measurement. The baseline hydrogen concentration was 4 ppm. The patient finished substrate at 10:26 AM. The patient brushed teeth again at 10:27 AM. The start time was 10:29 AM with hydrogen concentration of 12 part per million (ppm) at start time. Fifteen minutes later, it was 12 ppm. 30 minutes later, hydrogen concentration was 9 ppm, 45 minutes later it was 5 ppm, 60 minutes later, it was 3 ppm. GI office visit: 09/11/22 (care everywhere): Dr. Rehan Mccannmonet Alonzo is a 21 y.o. female with PMHx of idiopathic pancreatitis, here with recurrent C. Diff infection. 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 Initially dx with C. Diff in 2019, s/p treatment with Vancomycin, then subsequent mild improvement without confirmation, however one year later she tested positive for C. Diff again (09/2021). Patient underwent colonoscopy (normal endo and microscopic exams), treatment with Fidaxomicin and subsequent FMT (even though at the time she had negative antigen test). Colon FMT: 08/15/22: (care everywhere): Impression: Unremarkable colon examination. No ulceration, no pseudomembrane seen. Successful positioning of 140 g of stool donor mixed with 350 mL of normal saline. Colonoscopy w/ FMT (12/29/2021): FINDIN. Unremarkable colon examination. No ulceration, no pseudomembrane seen. 2. Successful positioning of 100 g of stool donor mixed with 120 mL of normal saline. Component Latest Ref Rng AND Units 12/08/2022 WBC 3.70 - 11.00 k/uL 6.44 RBC 3.90 - 5.20 m/uL 4.35 Hemoglobin 11.5 - 15.5 g/dL 13.8 Hematocrit 36.0 - 46.0 % 40.9 MCV 80.0 - 100.0 fL 94.0 MCH 26.0 - 34.0 pg 31.7 MCHC 30.5 - 36.0 g/dL 33.7 RDW-CV 11.5 - 15.0 % 11.8 Platelet Count 150 - 400 k/uL 214 MPV 9.0 - 12.7 fL 11.3 Absolute nRBC <0.01 k/uL <0.01 Component Latest Ref Rng AND Units 12/08/2022 Hep B Surface Ab, Qual Positive Negative (A) Hep B Surf Ab Quant >=12.00 mIU/mL <8.00 (L) Hep C Antibody IA Negative Negative Hep B Surface Ag Negative Negative Hep B Core Ab, Total Negative Negative Component Latest Ref Rng AND Units 12/08/2022 Protein, Total 6.3 - 8.0 g/dL 7.6 Albumin 3.9 - 4.9 g/dL 4.8 Calcium 8.5 - 10.2 mg/dL 9.6 Bilirubin, Total 0.2 - 1.3 mg/dL 0.3 Alkaline Phosphatase 34 - 123 U/L 50 AST 13 - 35 U/L 23 ALT 7 - 38 U/L 14 Glucose 74 - 99 mg/dL 83 BUN 7 - 21 mg/dL 15 Creatinine 0.58 - 0.96 mg/dL 0.61 Sodium 136 - 144 mmol/L 135 (L) Potassium 3.7 - 5.1 mmol/L 4.5 Chloride 97 - 105 mmol/L 101 CO2 22 - 30 mmol/L 22 Anion Gap 9 - 18 mmol/L 12 eGFR >=60 mL/min/1.73mA? 128 PAST MEDICAL HISTORY Diagnosis Date Pancreatitis PAST SURGICAL HISTORY Procedure Laterality Date COLONOSCOPY EGD Current Outpatient Medications on File Prior to Visit Medication Sig ergocalciferol 50,000 unit capsule (VITAMIN D2, DRISDOL) (take by mouth with food twice a week, ONE CAPSULE ON SUNDAY AND ONE ON SUNDAY) FOR A TOTAL OF 8 WEEKS. escitalop (more content not included)... Normal [facility] HEPATOBILIARY SCAN W EFon 12-01-2022 MA HEPATOBILIARY SCAN W HEPATOBILIARY SCAN WITH EJECTION FRACTION COMPARISON: Ultrasound dated 10/31/2022. HISTORY: Abdominal pain and nausea following meals. TECHNIQUE: Dose = 5.4 mCi of technetium-99m Choletec. 8 ounces of oral Ensure Plus. FINDINGS: There is a normal distribution of tracer throughout the liver. The gallbladder and biliary tree are well visualized. Tracer passes freely into the small bowel with no biliary obstruction. The calculated gallbladder ejection fraction is 69%. This measurement is within normal limits. IMPRESSION: Normal study. Electronically authenticated by: DARA CEDILLO Date: 2022-12-01 13:53 Normal [facility] OVA AND PARASITE EXAMINATION on 11-13-2022 Ova + Parasite Exam Final report Normal [facility] Comment on above: Result Comment: Thes e results were obtained using wet preparation(s) and trichrome stained smear. This test does not include testing for Cryptosporidium parvum, Cyclospora, or Microsporidia. Performed By: #### O VAPE #### [facility] [address] [place] [address] Dr. Timi Prater Result 1 Comment Normal [facility] Comment on above: Result Comment: No o va, cysts, or parasites seen. . One negative specimen does not rule out the possibility of a parasitic infection. Performed By: #### O VAPE #### [facility] [address] [place] [address] Dr. Timi Prater AMYLASEon 11-04-2022 Amylase [Catalytic activity/Vol] 39 U/L Normal 25-115 [facility] Comment on above: Performed By: #### O VAPE #### [facility] [address] [place] [address] Dr. Timi Prater CBC AUTO DIFFon 11-04-2022 BASO # 0.1 103/ul Normal 0.0-0.1 [facility] Comment on above: Performed By: #### C ALPOO #### [facility] [address] [place] [address] Dr. Timi Prater Basophils/100 WBC (Bld) 1.1 % Normal 0.2-2.0 [facility] Comment on above: Performed By: #### C ALPOO #### [facility] [address] [place] [address] Dr. Timi Prater EO # 0.2 103/ul Normal 0.0-0.7 [facility] Comment on above: Performed By: #### C ALPOO #### [facility] [address] [place] [address] Dr. Timi Prater Eosinophils/100 WBC (Bld) 3.5 % Normal 0.9-7.0 [facility] Comment on above: Performed By: #### C ALPOO #### [facility] [address] [place] [address] Dr. Timi Prater Erythrocyte distribution width (RBC) [Ratio] 11.5 % Normal 11.0-15.0 [facility] Comment on above: Performed By: #### C ALPOO #### [facility] [address] [place] [address] Dr. Timi Prater Hematocrit (Bld) [Volume fraction] 39.8 % Normal 36.0-48.0 [facility] Comment on above: Performed By: #### C ALPOO #### [facility] [address] [place] [address] Dr. Timi Prater Hemoglobin (Bld) [Mass/Vol] 13.7 g/dL Normal 12.0-16.0 [facility] Comment on above: Performed By: #### C ALPOO #### [facility] [address] [place] [address] Dr. Timi Prater IG # 0.01 10e3/ul Normal 0.00-0.03 [facility] Comment on above: Performed By: #### C ALPOO #### [facility] [address] [place] [address] Dr. Timi Prater IG % 0.2 % Normal 0.0-0.5 [facility] Comment on above: Performed By: #### C ALPOO #### [facility] [address] [place] [address] Dr. Timi Prater LYMPH # 2.4 103/ul Normal 1.2-3.8 [facility] Comment on above: Performed By: #### C ALPOO #### [facility] [address] [place] [address] Dr. Timi Prater Lymphocytes/100 WBC (Bld) 53.1 % Normal 20.5-60.0 [facility] Comment on above: Performed By: #### C ALPOO #### [facility] [address] [place] [address] Dr. Timi Prater MANUAL DIFF REQ NO Normal [facility] Comment on above: Performed By: #### C ALPOO #### [facility] [address] [place] [address] Dr. Timi Prater MCH (RBC) [Entitic mass] 31.6 pg Normal 26.7-34.0 [facility] Comment on above: Performed By: #### C ALPOO #### [facility] [address] [place] [address] [address] Timi Prater MCHC (RBC) [Mass/Vol] 34.4 g/dL Normal 29.9-35.2 [facility] Comment on above: Performed By: #### C ALPOO #### [facility] [address] [place] [address] Dr. Timi Prater MCV (RBC) [Entitic vol] 91.7 fL Normal 81.0-99.0 [facility] Comment on above: Performed By: #### C ALPOO #### [facility] [address] [place] [address] Dr. Timi Prater MONO # 0.4 103/ul Normal 0.3-0.8 [facility] Comment on above: Performed By: #### C ALPOO #### [facility] [address] [place] [address] Dr. Timi Prater Monocytes/100 WBC (Bld) 8.1 % Normal 1.7-12.0 [facility] Comment on above: Performed By: #### C ALPOO #### [facility] [address] [place] [address] Dr. Timi Prater NEUT # 1.6 103/ul Normal 1.4-6.5 [facility] Comment on above: Performed By: #### C ALPOO #### [facility] [address] [place] [address] Dr. Timi Prater Neutrophils/100 WBC (Bld) 34.0 % Critically low 43.0-75.0 [facility] Comment on above: Performed By: #### C ALPOO #### [facility] [address] [place] [address] Dr. Timi Prater Platelet mean volume (Bld) [Entitic vol] 10.7 fL Normal 9.5-13.5 [facility] Comment on above: Performed By: #### C ALPOO #### [facility] [address] [place] [address] Dr. Timi Prater PLT 192 103/ul Normal 150-450 [facility] Comment on above: Performed By: #### C ALPOO #### [facility] [address] [place] [address] Dr. Timi Prater RBC 4.34 106/ul Normal 4.20-5.40 [facility] Comment on above: Performed By: #### C ALPOO #### [facility] [address] [place] [address] Dr. Timi Prater WBC 4.6 103/ul Normal 4.0-11.0 [facility] Comment on above: Performed By: #### C ALPOO #### [facility] [address] [place] [address] Dr. Timi Prater GI PANEL (PCR)on 11-04-2022 Adenovirus F 40/41 Not detected Normal NOT DETECTED [facility] Comment on above: Performed By: #### C DIFPOC #### [facility] [address] [place] [address] Dr. Timi Prater Astrovirus Not detected Normal NOT DETECTED [facility] Comment on above: Performed By: #### C DIFPOC #### [facility] [address] [place] [address] Dr. Timi Prater C. Diff toxin A/B Not detected Normal NOT DETECTED [facility] Comment on above: Performed By: #### C DIFPOC #### [facility] [address] [place] [address] Dr. Timi Prater Campylobacter Not detected Normal NOT DETECTED [facility] Comment on above: Performed By: #### C DIFPOC #### [facility] [address] [place] [address] Dr. Timi Prater Cryptosporidium Not detected Normal NOT DETECTED [facility] Comment on above: Performed By: #### C DIFPOC #### [facility] [address] [place] [address] Dr. Timi Prater Cyclos. Cayetanensis Not detected Normal NOT DETECTED [facility] Comment on above: Performed By: #### C DIFPOC #### [facility] [address] [place] [address] Dr. Timi Prater E. Coli O157 Not Applicable Normal Not Applicable [facility] Comment on above: Performed By: #### C DIFPOC #### [facility] [address] [place] [address] Dr. Timi Prater E. histolytica Not detected Normal NOT DETECTED [facility] Comment on above: Performed By: #### C DIFPOC #### [facility] [address] [place] [address] Dr. Timi Prater EAEC Not detected Normal NOT DETECTED [facility] Comment on above: Performed By: #### C DIFPOC #### [facility] [address] [place] [address] Dr. Timi Prater EIEC Not detected Normal NOT DETECTED [facility] Comment on above: Performed By: #### C DIFPOC #### [facility] [address] [place] [address] Dr. Timi Prater EPEC Not detected Normal NOT DETECTED [facility] Comment on above: Performed By: #### C DIFPOC #### [facility] [address] [place] [address] Dr. Timi Prater ETEC Not detected Normal NOT DETECTED [facility] Comment on above: Performed By: #### C DIFPOC #### [facility] [address] [place] [address] Dr. Timi Prater G. Lamblia Not detected Normal NOT DETECTED [facility] Comment on above: Performed By: #### C DIFPOC #### [facility] [address] [place] [address] Dr. Timi WHARTON CONTROLS PASSED Normal [facility] Comment on above: Performed By: #### C DIFPOC #### [facility] [address] [place] [address] Dr. Timi QUINTANILLA ANITA HEADER GI PANEL BACTERIA Normal [facility] Comment on above: Performed By: #### C DIFPOC #### [facility] [address] [place] [address] Dr. Timi QUINTANILLAHD ECOLI GI PANEL DIARRHEAGEN IC E.COLI / SHIGELLA Normal [facility] Comment on above: Performed By: #### C DIFPOC #### [facility] [address] [place] [address] [address] Timi FAJARDO INFO SEE BELOW Normal [facility] Comment on above: Result Comment: EAEC - Enteroaggregative E. Coli EPEC- Enteropathogenic E. Coli ETEC- Enterotoxigenic E. Coli lt/st STEC- Shigella-like toxin-producing E. Coli stx1/stx2 EIEC- Shigella/Enteroinvasive E. Coli Performed By: #### C DIFPOC #### [facility] [address] [place] [address] Dr. Timi FAJARDO PARASITES GI PANEL PARASITES Normal [facility] Comment on above: Performed By: #### C DIFPOC #### [facility] [address] [place] [address] Dr. Timi FAJARDO VIRUS GI PANEL VIRUSES Normal [facility] Comment on above: Performed By: #### C DIFPOC #### [facility] [address] [place] [address] Dr. Timi Prater Norovirus GI/GII Not detected Normal NOT DETECTED [facility] Comment on above: Performed By: #### C DIFPOC #### [facility] [address] [place] [address] Dr. Timi Prater P. Shigelloides Not detected Normal NOT DETECTED [facility] Comment on above: Performed By: #### C DIFPOC #### [facility] [address] [place] [address] Dr. Timi Prater Rotavirus A Not detected Normal NOT DETECTED [facility] Comment on above: Performed By: #### C DIFPOC #### [facility] [address] [place] [address] Dr. Timi Prater Salmonella Not detected Normal NOT DETECTED [facility] Comment on above: Performed By: #### C DIFPOC #### [facility] [address] [place] [address] Dr. Timi Prater Sapovirus Not detected Normal NOT DETECTED [facility] Comment on above: Performed By: #### C DIFPOC #### [facility] [address] [place] [address] Dr. Timi Prater STEC Not detected Normal NOT DETECTED [facility] Comment on above: Performed By: #### C DIFPOC #### [facility] [address] [place] [address] Dr. Timi Prater Vibrio Not detected Normal NOT DETECTED [facility] Comment on above: Performed By: #### C DIFPOC #### [facility] [address] [place] [address] Dr. Timi Prater Vibrio Cholera Not detected Normal NOT DETECTED [facility] Comment on above: Performed By: #### C DIFPOC #### [facility] [address] [place] [address] Dr. Timi Prater Y. Enterocolitica Not detected Normal NOT DETECTED [facility] Comment on above: Performed By: #### C DIFPOC #### [facility] [address] [place] [address] Dr. Timi Prater LIPASEon 11-04-2022 Lipase [Catalytic activity/Vol] 88.0 U/L Normal 73.0-393.0 [facility] Comment on above: Performed By: #### O VAPE #### [facility] [address] [place] [address] Dr. Timi Prater OCC BLD IMMUNO SCREENon 10-21 OCCULT BLOOD Negative Normal NEGATIVE [facility] Comment on above: Performed By: #### C ALPOO #### [facility] [address] [place] [address] Dr. Timi Prater PROF 14(COMP METB)on 023 Albumin [Mass/Vol] 4.2 g/dL Normal 3.4-5.0 [facility] Comment on above: Performed By: #### C ALPOO #### [facility] [address] [place] [address] Dr. Timi Prater Albumin/Globulin [Mass ratio] 1.2 {ratio} Normal [facility] Comment on above: Performed By: #### C ALPOO #### [facility] [address] [place] [address] Dr. Timi Prater ALP [Catalytic activity/Vol] 55 U/L Normal 46-116 [facility] Comment on above: Performed By: #### C ALPOO #### [facility] [address] [address] [address] Timi Prater ALT [Catalytic activity/Vol] 14 U/L Normal 14-59 [facility] Comment on above: Performed By: #### C ALPOO #### [facility] [address] [address] [address] Timi Prater Anion gap [Moles/Vol] 11.9 mmol/L Normal [facility] Comment on above: Performed By: #### C ALPOO #### [facility] [address] [address] [address] Timi Prater AST [Catalytic activity/Vol] 13 U/L Critically low 15-37 [facility] Comment on above: Performed By: #### C ALPOO #### [facility] [address] [address] [address] Timi Prater Bilirubin [Mass/Vol] 0.6 mg/dL Normal 0.2-1.0 [facility] Comment on above: Performed By: #### C ALPOO #### [facility] [address] [address] [address] Timi Prater Calcium [Mass/Vol] 9.4 mg/dL Normal 8.5-10.1 [facility] Comment on above: Performed By: #### C ALPOO #### [facility] [address] [address] [address] Timi Prater Chloride [Moles/Vol] 104 mmol/L Normal 98-107 [facility] Comment on above: Performed By: #### C ALPOO #### [facility] [address] [address] [address] Timi Prater CO2 [Moles/Vol] 26.6 mmol/L Normal 21.0-32.0 [facility] Comment on above: Performed By: #### C ALPOO #### [facility] [address] [address] [address] Timi Prater Creatinine [Mass/Vol] 0.85 mg/dL Normal 0.55-1.02 [facility] Comment on above: Performed By: #### C ALPOO #### [facility] [address] [address] [address] Timi Prater EGFR-AF MONTENEGRIN >60 Normal >=60 [facility] Comment on above: Performed By: #### C ALPOO #### [facility] [address] [address] [address] Timi Prater EGFR-NON AF MONTENEGRIN >60 Normal >=60 [facility] Comment on above: Performed By: #### C ALPOO #### [facility] [address] [address] [address] Timi Prater Globulin (S) [Mass/Vol] 3.6 g/dL Normal [facility] Comment on above: Performed By: #### C ALPOO #### [facility] [address] [address] [address] Timi Prater Glucose [Mass/Vol] 100 mg/dL Normal 74-106 [facility] Comment on above: Performed By: #### C ALPOO #### [facility] [address] [address] [address] Timi Prater Potassium [Moles/Vol] 3.5 mmol/L Normal 3.5-5.1 [facility] Comment on above: Performed By: #### C ALPOO #### [facility] [address] [address] [address] Timi Prater Protein [Mass/Vol] 7.8 g/dL Normal 6.4-8.2 [facility] Comment on above: Performed By: #### C ALPOO #### [facility] [address] [address] [address] Timi Prater Sodium [Moles/Vol] 139 mmol/L Normal 136-145 [facility] Comment on above: Performed By: #### C ALPOO #### [facility] [address] [address] [address] Timi Prater Urea nitrogen [Mass/Vol] 13.0 mg/dL Normal 7.0-18.0 [facility] Comment on above: Performed By: #### C ALPOO #### [facility] [address] [place], [place] [address] Dr. Timi Prtaer Urea nitrogen/Creatinine [Mass ratio] 15.3 mg/mg Normal [facility] Comment on above: Performed By: #### C NICKYOO #### [facility] [address] [place], [place] [address] Dr. Timi Prater C. DIFF PCRon 11-03-2022 C. DIFFICILE PCR Negative Normal NEGATIVE [facility] Comment on above: Performed By: #### T HYRABS #### [facility] [address] [place], [place] [address] Dr. Timi Prater Orders Onlyon 10-31-2022 Orders Only [id number] Rosa Alonzo 2000 F Date Provider Department Center 10/31/2022 [id number], HISTORICAL [facility] No family history on file Normal [facility] PANCREATIC ELASTASE FECALon 10-31-2022 Pancreatic Elastase, Fecal 253 ug Elast./g Normal >200 [facility] Comment on above: Result Comment: Tia re Pancreatic Insufficiency: <100 Moderate Pancreatic Insufficiency: 100 - 200 Normal: >200 Performed By: #### C ALPOO #### [facility] [address] [place] [address] Dr. Timi Prater US SINGLE QUAD RT UPPERon US SINGLE QUAD RT UPPER EXAM: US SINGLE QUAD RT UPPER HISTORY: . History of disorder of digestive system . COMPARISON: None. TECHNIQUE: Grayscale and color imaging was performed FINDINGS: The pancreas appears normal. The liver is normal in size. No masses are noted. Color-flow is noted in the portal and hepatic veins. The gallbladder appears normal with no stones or sludge identified. No gallbladder wall thickening is noted. Common bile duct measures 1.3 mm. Right kidney measures 10.8 x 4.9 x 3.6 cm. There is a 1.6 x 0.9 cm cyst involving the mid to inferior pole of the right kidney. No hydronephrosis. No fluid is noted in the right upper quadrant. IMPRESSION: 1.6 cm simple cyst involving the right kidney. 2. The remainder the right upper quadrant was unremarkable. Electronically authenticated by: DARA SAVAGE Date: 2022-10-31 08:39 Normal [facility] Orders Onlyon 10-23-2022 Orders Only [id number] Rosa Alonzo 2000 F Date Provider Department Center 10/23/2022 [id number], HISTORICAL [facility] No family history on file Normal [facility] CBC AUTO DIFFon 10-20-2022 BASO # 0.1 103/ul Normal 0.0-0.1 [facility] Comment on above: Performed By: #### C BC #### [facility] [address] [address] [address] Timi Prater Basophils/100 WBC (Bld) 0.9 % Normal 0.2-2.0 [facility] Comment on above: Performed By: #### C BC #### [facility] [address] [address] [address] Timi Prater EO # 0.1 103/ul Normal 0.0-0.7 [facility] Comment on above: Performed By: #### C BC #### [facility] [address] [address] [address] Timi Prater Eosinophils/100 WBC (Bld) 2.6 % Normal 0.9-7.0 [facility] Comment on above: Performed By: #### C BC #### [facility] [address] [place] [address] Dr. Timi Prater Erythrocyte distribution width (RBC) [Ratio] 11.9 % Normal 11.0-15.0 [facility] Comment on above: Performed By: #### C BC #### [facility] [address] [address] [address] Timi Prater Hematocrit (Bld) [Volume fraction] 41.0 % Normal 36.0-48.0 [facility] Comment on above: Performed By: #### C BC #### [facility] [address] [place] [address] Dr. Timi Prater Hemoglobin (Bld) [Mass/Vol] 14.2 g/dL Normal 12.0-16.0 [facility] Comment on above: Performed By: #### C BC #### [facility] [address] [place] [address] Dr. Timi Prater IG # 0.02 10e3/ul Normal 0.00-0.03 [facility] Comment on above: Performed By: #### C BC #### [facility] [address] [place] [address] Dr. Timi Prater IG % 0.4 % Normal 0.0-0.5 [facility] Comment on above: Performed By: #### C BC #### [facility] [address] [place] [address] Dr. Timi Prater LYMPH # 1.7 103/ul Normal 1.2-3.8 [facility] Comment on above: Performed By: #### C BC #### [facility] [address] [place] [address] Dr. Timi Prater Lymphocytes/100 WBC (Bld) 31.2 % Normal 20.5-60.0 [facility] Comment on above: Performed By: #### C BC #### [facility] [address] [place] [address] Dr. Timi Prater MANUAL DIFF REQ NO Normal [facility] Comment on above: Performed By: #### C BC #### [facility] [address] [place] [address] Dr. Timi Prater MCH (RBC) [Entitic mass] 31.7 pg Normal 26.7-34.0 [facility] Comment on above: Performed By: #### C BC #### [facility] [address] [place] [address] Dr. Timi Prater MCHC (RBC) [Mass/Vol] 34.6 g/dL Normal 29.9-35.2 [facility] Comment on above: Performed By: #### C BC #### [facility] [address] [place] [address] Dr. Timi Prater MCV (RBC) [Entitic vol] 91.5 fL Normal 81.0-99.0 [facility] Comment on above: Performed By: #### C BC #### [facility] [address] [place] [address] Dr. Timi Prater MONO # 0.5 103/ul Normal 0.3-0.8 [facility] Comment on above: Performed By: #### C BC #### [facility] [address] [place] [address] Dr. Timi Prater Monocytes/100 WBC (Bld) 8.7 % Normal 1.7-12.0 [facility] Comment on above: Performed By: #### C BC #### [facility] [address] [place] [address] Dr. Timi Prater NEUT # 3.1 103/ul Normal 1.4-6.5 [facility] Comment on above: Performed By: #### C BC #### [facility] [address] [place] [address] Dr. Timi Prater Neutrophils/100 WBC (Bld) 56.2 % Normal 43.0-75.0 [facility] Comment on above: Performed By: #### C BC #### [facility] [address] [place] [address] Dr. Timi Prater Platelet mean volume (Bld) [Entitic vol] 10.8 fL Normal 9.5-13.5 [facility] Comment on above: Performed By: #### C BC #### [facility] [address] [place] [address] Dr. Timi Prater PLT 219 103/ul Normal 150-450 [facility] Comment on above: Performed By: #### C BC #### [facility] [address] [place] [address] Dr. Timi Prater RBC 4.48 106/ul Normal 4.20-5.40 [facility] Comment on above: Performed By: #### C BC #### [facility] [address] [place] [address] Dr. Timi Prater WBC 5.4 103/ul Normal 4.0-11.0 [facility] Comment on above: Performed By: #### C BC #### [facility] [address] [place] [address] Dr. Timi Prater Orders Onlyon 10-20-2022 Orders Only [id number] Rosa Alonzo 2000 F Date Provider Department Center 10/20/2022 Ruchi-KANDY DRIVER [facility] No family history on file Normal [facility] PROF 14(COMP METB)on 023 Albumin [Mass/Vol] 4.5 g/dL Normal 3.4-5.0 [facility] Comment on above: Performed By: #### C DIFPOC #### [facility] [address] [address] [address] Timi Prater Albumin/Globulin [Mass ratio] 1.5 {ratio} Normal [facility] Comment on above: Performed By: #### C DIFPOC #### [facility] [address] [address] [address] Timi Prater ALP [Catalytic activity/Vol] 56 U/L Normal 46-116 [facility] Comment on above: Performed By: #### C DIFPOC #### [facility] [address] [address] [address] Timi Prater ALT [Catalytic activity/Vol] 16 U/L Normal 14-59 [facility] Comment on above: Performed By: #### C DIFPOC #### [facility] [address] [address] [address] Timi Prater Anion gap [Moles/Vol] 15.5 mmol/L Normal [facility] Comment on above: Performed By: #### C DIFPOC #### [facility] [address] [address] [address] Timi Prater AST [Catalytic activity/Vol] 13 U/L Critically low 15-37 [facility] Comment on above: Performed By: #### C DIFPOC #### [facility] [address] [address] [address] Timi Prater Bilirubin [Mass/Vol] 0.6 mg/dL Normal 0.2-1.0 [facility] Comment on above: Performed By: #### C DIFPOC #### [facility] [address] [address] [address] Timi Prater Calcium [Mass/Vol] 9.3 mg/dL Normal 8.5-10.1 [facility] Comment on above: Performed By: #### C DIFPOC #### [facility] [address] [place] [address] Dr. Timi Prater Chloride [Moles/Vol] 104 mmol/L Normal 98-107 [facility] Comment on above: Performed By: #### C DIFPOC #### [facility] [address] [place] [address] Dr. Timi Prater CO2 [Moles/Vol] 25.7 mmol/L Normal 21.0-32.0 [facility] Comment on above: Performed By: #### C DIFPOC #### [facility] [address] [place] [address] Dr. Timi Prater Creatinine [Mass/Vol] 0.71 mg/dL Normal 0.55-1.02 [facility] Comment on above: Performed By: #### C DIFPOC #### [facility] [address] [place] [address] Dr. Timi Prater EGFR-AF MONTENEGRIN >60 Normal >=60 [facility] Comment on above: Performed By: #### C DIFPOC #### [facility] [address] [place] [address] Dr. Timi Prater EGFR-NON AF MONTENEGRIN >60 Normal >=60 [facility] Comment on above: Performed By: #### C DIFPOC #### [facility] [address] [place] [address] Dr. Timi Prater Globulin (S) [Mass/Vol] 3.1 g/dL Normal [facility] Comment on above: Performed By: #### C DIFPOC #### [facility] [address] [place] [address] Dr. Timi Prater Glucose [Mass/Vol] 77 mg/dL Normal 74-106 [facility] Comment on above: Performed By: #### C DIFPOC #### [facility] [address] [place] [address] Dr. Timi Prater Potassium [Moles/Vol] 4.2 mmol/L Normal 3.5-5.1 [facility] Comment on above: Performed By: #### C DIFPOC #### [facility] [address] [place] [address] Dr. Timi Prater Protein [Mass/Vol] 7.6 g/dL Normal 6.4-8.2 [facility] Comment on above: Performed By: #### C DIFPOC #### [facility] [address] [place] [address] Dr. Timi Prater Sodium [Moles/Vol] 141 mmol/L Normal 136-145 [facility] Comment on above: Performed By: #### C DIFPOC #### [facility] [address] [place] [address] Dr. Timi Prater Urea nitrogen [Mass/Vol] 15.0 mg/dL Normal 7.0-18.0 [facility] Comment on above: Performed By: #### C DIFPOC #### [facility] [address] [place] [address] Dr. Timi Prater Urea nitrogen/Creatinine [Mass ratio] 21.1 mg/mg Normal [facility] Comment on above: Performed By: #### C DIFPOC #### [facility] [address] [place] [address] Dr. Timi Prater LIPASEon 10-19-2022 Lipase [Catalytic activity/Vol] 117.0 U/L Normal 73.0-393.0 [facility] Comment on above: Performed By: #### C DIFPOC #### [facility] [address] [place] [address] Dr. Timi Prater Orders Onlyon 10-19-2022 Orders Only [id number] Rosa Alonzo 2000 F Date Provider Department Center 10/19/2022 Ruchi-KANDY DRIVER [facility] No family history on file Normal [facility] CT ABD/PELV W CONon 10-19-[address] ABD/PELV W CON EXAMINATION: CT ABD/ PELV W CON HISTORY: Abdominal colic ; acute right flank pain COMPARISON: No relevant comparison available. TECHNIQUE: Axial, Coronal, and Sagittal images were obtained without and/or with IV contrast as indicated by examination type. Dose reduction techniques were achieved by using automated exposure control and/or adjustment of mA and/or kV according to patient size and/or use of iterative reconstruction technique. FINDINGS: LUNG BASES: No visible pulmonary or pleural disease. LIVER: No enlargement, atrophy, suspicious density, or significant focal lesion. BILIARY: No dilatation or calcification. PANCREAS: Haziness and poorly defined margins of the head of the pancreas. No stones or abnormal duct dilation. SPLEEN: No enlargement or focal lesion. ADRENALS: No mass or enlargement. KIDNEYS: No mass, obstruction, or calcification. BOWEL/MESENTERY: No visible mass, obstruction, or bowel wall thickening. Normal appendix. AORTA/VASCULAR: No aneurysm or dissection. RETROPERITONEUM: No mass or adenopathy. LYMPH NODES: No adenopathy. URINARY BLADDER: No visible focal wall thickening, lesion, or calculus. PELVIC ORGANS: Geographic shaped rim-enhancing 2.5 cm structure within posterior right pelvis suspected represent a collapsing ovarian cyst. Heterogeneous enhancement is an indistinct margins of the uterus with mild haziness of the surrounding fat; inflammatory changes versus fluid. ABDOMINAL WALL: No mass or hernia. BONES: No bony lesion or fracture. OTHER: Negative. IMPRESSION: 1.Poorly defined margins of the head of the pancreas; sequela of chronic pancreatitis versus mild acute pancreatitis. 2.Suspect collapsing right ovarian cyst 2.5 cm in diameter within posterior right pelvis. 3.Heterogeneous enhancement and slightly indistinct margins of the uterus with mildly increased density surrounding fat; this could represent fluid from the ruptured right ovarian cyst. Consideration is also given to inflammatory changes such as pelvic inflammatory disease. Electronically authenticated by: AZAEL GRIFFIN Date: 2022-10-18 11:02 Normal [facility] CORTISOL 24HR URINEon 2022 Cortisol,F,ug/24hr,U 19 ug/24 hr Normal 6-42 [facility] Comment on above: Performed By: #### C ORT24 #### [facility] [address] [address] [address] Timi Prater Cortisol,F,ug/L,U 18 ug/L Normal Undefined [facility] Comment on above: Performed By: #### C ORT24 #### [facility] [address] [place], [place] [address] Dr. Tmii Prater CLOSTRIDIUM DIFFICILE PCRon 10-06-2022 C difficile Toxin Gene RUCHI Negative Normal Negative [facility] Comment on above: Performed By: #### C ALPOO #### [facility] [address] [place] [address] Dr. Timi Prater REVERSE T3on 10-01-2022 Reverse T3, Serum 19.3 ng/dL Normal 9.2-24.1 [facility] Comment on above: Result Comment: This test was developed and its performance characteristics determined by [employer]. It has not been cleared or approved by the Food and Drug Administration. Performed By: #### O VAPE #### [facility] [address] [address] [address] Timi Prater Orders Onlyon 09-29-2022 Orders Only [id number] Rosa Alonzo 2000 F Date Provider Department Center 09/29/2022 [id number], HECTOR [facility] No family history on file Normal [facility] C. DIFF PCRon 09-28-2022 C. DIFFICILE PCR Negative Normal NEGATIVE [facility] Comment on above: Performed By: #### C DIFPOC #### [facility] [address] [place] [address] Dr. Timi Prater Orders Onlyon 09-28-2022 Orders Only [id number] Rosa Alonzo 2000 F Date Provider Department Center 09/28/2022 Ruchi-KANDY DRIVER [facility] No family history on file Normal [facility] FREE T4on 09-26-2022 Free T4 [Mass/Vol] 0.89 ng/dL Normal 0.76-1.46 [facility] Comment on above: Performed By: #### T HYRABS #### [facility] [address] [address] [address] Timi Prater CORTISOL Mely 09-25-2022 Cortisol AM 23.5 ug/dL Critically high 6.2-19.4 [facility] Comment on above: Performed By: #### C DIFPOC #### [facility] [address] [place] [address] Dr. Timi Prater THYROID ANTIBODIESon 023 Thyroglobulin Antibody <1.0 Normal 0.0-0.9 [facility] Comment on above: Result Comment: Thyr oglobulin Antibody measured by [employer] Performed By: #### T HYRABS #### [facility] [address] [address] [address] Timi Prater Thyroid Peroxidase (TPO) Ab 10 IU/mL Normal 0-34 [facility] Comment on above: Performed By: #### T HYRABS #### [facility] [address] [address] [address] Timi Prater T3, TOTAL (TRIIODOTHYRONINE) on 09-23-2022 T3, TOTAL 108 ng/dL Normal 71-180 [facility] Comment on above: Performed By: #### O VAPE #### [facility] [address] [place] [address] Dr. Timi Prater FREE T3on 09-22-2022 FREE T3 2.65 pg/mlL Normal 2.18-3.98 [facility] Comment on above: Performed By: #### C DIFPOC #### [facility] [address] [address] [address] Timi Prater TSHon 09-22-2022 TSH 1.156 uIU/mL Normal 0.358-3.740 [facility] Comment on above: Performed By: #### C DIFPOC #### [facility] [address] [address] [address] Timi Prater HELICOBACTER PYLORI AG STOOL on 09-14-2022 H. pylori Stool Ag, EIA Negative Normal Negative [facility] Comment on above: Performed By: #### H PYLORI #### [facility] [address] [address] [address] Timi Prater C. DIFF PCRon 09-12-2022 C. DIFFICILE PCR Negative Normal NEGATIVE [facility] Comment on above: Performed By: #### C DIFPOC #### [facility] [address] [address] [address] Timi Prater Orders Onlyon 09-12-2022 Orders Only [id number] Rosa Alonzo 2000 F Date Provider Department Center 09/12/2022 [id number], HISTORICAL MP [facility] Medical [facility]avi No family history on file Normal [facility] 37on 09-11-2022 37 Crucell for SIB O specific diet Normal [facility] Office Visiton 09-11-2022 Follow-up visit [id number] Rosa Alonzo 2000 F Date Provider Department Center 09/11/2022 KANDY LÓPEZ MP [facility]avi No family history on file Level of Service:35218 [place] OFFICE/OUTPATIENT ESTABLISHED MOD MDM 30-39 MIN Reason for Visit and Comments: continued stomach issues [Other] Normal [facility] Orders Onlyon 09-07-2022 Orders Only [id number] Rosa Alonzo 2000 F Date Provider Department [place] 09/07/2022 KANDY LÓPEZ MP GI Medical Pavstephanie No family history on file Normal [facility] STOOL CULTUREon 09-03-2022 Campylobacter Culture Final report Normal [facility] Comment on above: Performed By: #### O VAPE #### [facility] [address] [address] [address] Timi Prater E coli Shiga Toxin EIA Negative Normal Negative [facility] Comment on above: Performed By: #### O VAPE #### [facility] [address] [address] [address] Timi Prater Result 1 Comment Normal [facility] Comment on above: Result Comment: No S almonella or Shigella recovered. Performed By: #### O VAPE #### [facility] [address] [place], [place] [address] Dr. Timi Prater Result Comment: No C ampylobacter species isolated. Salmonella/Shigella Screen Final report Normal [facility] Comment on above: Performed By: #### O VAPE #### [facility] [address] [address] [address] Timi Prater CALPROTECTIN, FECALon 2022 Calprotectin, Fecal <16 Normal 0-120 [facility] Comment on above: Result Comment: Conc entration Interpretation Follow-Up <16 - 50 ug/g Normal None >50 -120 ug/g Borderline Re-evaluate in 4-6 weeks >120 ug/g Abnormal Repeat as clinically indicated Performed By: #### C LOUIS #### [facility] [address] [address] [address] Timi Prater Orders Onlyon 08-31-2022 Orders Only [id number] Rosa Alonzo 2000 F [facility] Provider Department [place] 08/31/2022 [id number], HECTOR GI Medical Pavi No family history on file [facility] [place] [facility] 36on 08-30-2022 36 Order faxed. [facility] 36 Pt calling stating t he Enteric Bacteria Stool Culture that you ordered her, her insurance will not cover and would cost at $1,0000 for her to have completed. [facility] told her to inform you to order just a regular stool culture instead. The order can be faxed to [phone]. [facility] [place] [facility] C. DIFF PCRon 08-30-2022 C. DIFFICILE PCR Negative Normal NEGATIVE [facility] Comment on above: Performed By: #### O ANA CRISTINA #### [facility] [address] [place] [address] Dr. Timi Prater Office Visiton 08-30-2022 Follow-up visit [id number] Rosa Alonzo 2000 F [facility] 08/30/2022 KANDY LÓPEZ MP GI Medical Pavi No family history on file Level of Service:74695 [place] OFFICE/OUTPATIENT ESTABLISHED MOD MDM 30-39 MIN Reason for Visit and Comments: Colonoscopy [235] [facility] [place] [facility] Orders Onlyon 08-30-2022 Orders Only [id number] Rosa Alonzo 2000 F [facility] Care Department [place] 08/30/2022 KANDY LÓPEZ MP GI Medical Pavi No family history on file [facility] [place] [facility] CLOSTRIDIUM DIFFICILE PCRon 08-26-2022 C difficile Toxin Gene RUCHI Negative Normal Negative [facility] Comment on above: Performed By: #### C LOUIS #### [facility] [address] [address] [address] Timi Prater ER URINE PROFILEon 3 Bilirubin Ql (U) Negative Normal NEGATIVE [facility] Comment on above: Performed By: #### T HYRABS #### [facility] [address] [address] [address] Timi Prater Clarity (U) CLEAR Normal CLEAR [facility] Comment on above: Performed By: #### T HYRABS #### [facility] [address] [address] [address] Timi Prater Color (U) LT. YELLOW Normal YELLOW [facility] Comment on above: Performed By: #### T HYRABS #### [facility] [address] [place] [address] Dr. Timi Prater ERUANA LILIAD A micrscopic examina tion will be performed if indicated. Normal [facility] Comment on above: Performed By: #### T HYRABS #### [facility] [address] [place] [address] Dr. Timi Prater Glucose Ql (U) Negative Normal NEGATIVE [facility] Comment on above: Performed By: #### T HYRABS #### [facility] [address] [place] [address] Dr. Timi Prater Hemoglobin Ql (U) Negative Normal NEGATIVE [facility] Comment on above: Performed By: #### T HYRABS #### [facility] [address] [address] [address] Timi Prater Ketones Ql (U) Negative Normal NEGATIVE [facility] Comment on above: Performed By: #### T HYRABS #### [facility] [address] [address] [address] Timi Prater LEUKOCYTES Negative Normal NEGATIVE [facility] Comment on above: Performed By: #### T HYRABS #### [facility] [address] [place] [address] Dr. Timi Prater Nitrite Ql (U) Negative Normal NEGATIVE [facility] Comment on above: Performed By: #### T HYRABS #### [facility] [address] [place] [address] Dr. Timi Prater pH (U) 7.0 [pH] Normal 5-9 [facility] Comment on above: Performed By: #### T JAN #### [facility] [address] [place] [address] Dr. Timi Prater SPEC GRAVITY 1.020 Normal 1.005-<=1.0 25 [facility] Comment on above: Performed By: #### T HYEDUARDO #### [facility] [address] [place] [address] Dr. Timi Prater UA PROTEIN TRACE Normal NEGATIVE/ TRACE [facility] Comment on above: Performed By: #### T HYEDUARDO #### [facility] [address] [place] [address] Dr. Timi Prater UR MICRO IND NOT INDICATED Normal [facility] Comment on above: Performed By: #### T JAN #### [facility] [address] [place] [address] Dr. Timi Prater Urobilinogen Qn (U) 0.2 {Trini'U}/dL Normal 0.2 - 1. 0 [facility] Comment on above: Performed By: #### T JAN #### [facility] [address] [place] [address] Dr. Timi Prater C. DIFF PCRon 08-22-2022 C. DIFFICILE PCR Negative Normal NEGATIVE [facility] Comment on above: Performed By: #### C DIFPOC #### [facility] [address] [place] [address] Dr. Timi Prater CARDIAC RITA ADMITon 023 CK [Catalytic activity/Vol] 56 U/L Normal 26-192 [facility] Comment on above: Performed By: #### O VAPE #### [facility] [address] [place] [address] Dr. Timi Prater CK.MB [Mass/Vol] ng/mL Normal <=3.60 [facility] Comment on above: Performed By: #### O VAPE #### [facility] [address] [place] [address] Dr. Timi Prater HSTROP 9.0 pg/mL Normal 4.0-51.3 [facility] Comment on above: Result Comment: CUT- OFF POINTS HAVE BEEN ESTABLISHED BASED ON THE FOURTH UNIVERSAL DEFINITIONS OF MYOCARDIAL INFARCTION. THE UPPER REFERENCE LIMIT (URL) OF TROPONIN, DEFINED THE 99TH PERCENTILE OF cTnI DISTRIBUTION IN A REFERENCE POPULATION, HAS BEEN CONFIRMED THE DECISION THRESHOLD FOR CT DIAGNOSIS. Performed By: #### O VAPE #### [facility] [address] [place] [address] Dr. Timi Prater DARREL 15 ng/mL Normal 9-82 [facility] Comment on above: Performed By: #### O VAPE #### [facility] [address] [place] [address] Dr. Timi Prater CBC AUTO DIFFon 08-22-2022 BASO # 0.1 103/ul Normal 0.0-0.1 [facility] Comment on above: Performed By: #### C ALPOO #### [facility] [address] [place] [address] Dr. Timi Prater Basophils/100 WBC (Bld) 0.7 % Normal 0.2-2.0 [facility] Comment on above: Performed By: #### C ALPOO #### [facility] [address] [place] [address] Dr. Timi Prater EO # 0.2 103/ul Normal 0.0-0.7 [facility] Comment on above: Performed By: #### C ALPOO #### [facility] [address] [place] [address] Dr. Timi Prater Eosinophils/100 WBC (Bld) 2.7 % Normal 0.9-7.0 [facility] Comment on above: Performed By: #### C ALPOO #### [facility] [address] [place] [address] Dr. Timi Prater Erythrocyte distribution width (RBC) [Ratio] 11.9 % Normal 11.0-15.0 [facility] Comment on above: Performed By: #### C ALPOO #### [facility] [address] [place] [address] Dr. Timi Prater Hematocrit (Bld) [Volume fraction] 39.0 % Normal 36.0-48.0 [facility] Comment on above: Performed By: #### C ALPOO #### [facility] [address] [place] [address] Dr. Timi Prater Hemoglobin (Bld) [Mass/Vol] 13.3 g/dL Normal 12.0-16.0 [facility] Comment on above: Performed By: #### C ALPOO #### [facility] [address] [place] [address] Dr. Timi Prater IG # 0.02 10e3/ul Normal 0.00-0.03 [facility] Comment on above: Performed By: #### C ALPOO #### [facility] [address] [place] [address] Dr. Timi Prater IG % 0.2 % Normal 0.0-0.5 [facility] Comment on above: Performed By: #### C ALPOO #### [facility] [address] [place] [address] Dr. Timi Prater LYMPH # 3.7 103/ul Normal 1.2-3.8 [facility] Comment on above: Performed By: #### C ALPOO #### [facility] [address] [place] [address] Dr. Timi Prater Lymphocytes/100 WBC (Bld) 43.6 % Normal 20.5-60.0 [facility] Comment on above: Performed By: #### C ALPOO #### [facility] [address] [place] [address] Dr. Timi Prater MANUAL DIFF REQ NO Normal [facility] Comment on above: Performed By: #### C ALPOO #### [facility] [address] [place] [address] Dr. Timi Prater MCH (RBC) [Entitic mass] 31.7 pg Normal 26.7-34.0 [facility] Comment on above: Performed By: #### C ALPOO #### [facility] [address] [place] [address] Dr. Timi Prater MCHC (RBC) [Mass/Vol] 34.1 g/dL Normal 29.9-35.2 [facility] Comment on above: Performed By: #### C ALPOO #### [facility] [address] [place] [address] Dr. Timi Prater MCV (RBC) [Entitic vol] 93.1 fL Normal 81.0-99.0 [facility] Comment on above: Performed By: #### C ALPOO #### [facility] [address] [place] [address] Dr. Timi Prater MONO # 0.8 103/ul Normal 0.3-0.8 [facility] Comment on above: Performed By: #### C ALPOO #### [facility] [address] [place] [address] Dr. Timi Prater Monocytes/100 WBC (Bld) 8.9 % Normal 1.7-12.0 [facility] Comment on above: Performed By: #### C ALPOO #### [facility] [address] [place] [address] Dr. Timi Prater NEUT # 3.8 103/ul Normal 1.4-6.5 [facility] Comment on above: Performed By: #### C ALPOO #### [facility] [address] [place] [address] Dr. Timi Prater Neutrophils/100 WBC (Bld) 43.9 % Normal 43.0-75.0 [facility] Comment on above: Performed By: #### C ALPOO #### [facility] [address] [place] [address] Dr. Timi Prater Platelet mean volume (Bld) [Entitic vol] 11.1 fL Normal 9.5-13.5 [facility] Comment on above: Performed By: #### C ALPOO #### [facility] [address] [place] [address] Dr. Timi Prater PLT 218 103/ul Normal 150-450 [facility] Comment on above: Performed By: #### C ALPOO #### [facility] [address] [place] [address] Dr. Timi Prater RBC 4.19 106/ul Critically low 4.20-5.40 [facility] Comment on above: Performed By: #### C ALPOO #### [facility] [address] [place] [address] Dr. Timi Prater WBC 8.6 103/ul Normal 4.0-11.0 [facility] Comment on above: Performed By: #### C ALPOO #### [facility] [address] [place] [address] Dr. Timi Prater PROF 14(COMP METB)on 023 Albumin [Mass/Vol] 4.2 g/dL Normal 3.4-5.0 [facility] Comment on above: Performed By: #### O VAPE #### [facility] [address] [place] [address] Dr. Timi Prater Albumin/Globulin [Mass ratio] 1.3 {ratio} Normal [facility] Comment on above: Performed By: #### O VAPE #### [facility] [address] [place] [address] Dr. Timi Prater ALP [Catalytic activity/Vol] 50 U/L Normal 46-116 [facility] Comment on above: Performed By: #### O VAPE #### [facility] [address] [place] [address] Dr. Timi Prater ALT [Catalytic activity/Vol] 13 U/L Critically low 14-59 [facility] Comment on above: Performed By: #### O VAPE #### [facility] [address] [place] [address] Dr. Timi Prater Anion gap [Moles/Vol] 13.8 mmol/L Normal [facility] Comment on above: Performed By: #### O VAPE #### [facility] [address] [place] [address] Dr. Timi Prater AST [Catalytic activity/Vol] 14 U/L Critically low 15-37 [facility] Comment on above: Performed By: #### O VAPE #### [facility] [address] [place] [address] Dr. Timi Prater Bilirubin [Mass/Vol] 0.4 mg/dL Normal 0.2-1.0 [facility] Comment on above: Performed By: #### O VAPE #### [facility] [address] [place] [address] Dr. Timi Prater Calcium [Mass/Vol] 9.2 mg/dL Normal 8.5-10.1 [facility] Comment on above: Performed By: #### O VAPE #### [facility] [address] [address] [address] Timi Prater Chloride [Moles/Vol] 102 mmol/L Normal 98-107 [facility] Comment on above: Performed By: #### O VAPE #### [facility] [address] [place] [address] Dr. Timi Prater CO2 [Moles/Vol] 26.9 mmol/L Normal 21.0-32.0 [facility] Comment on above: Performed By: #### O VAPE #### [facility] [address] [place] [address] Dr. Timi Prater Creatinine [Mass/Vol] 0.73 mg/dL Normal 0.55-1.02 [facility] Comment on above: Performed By: #### O VAPE #### [facility] [address] [place] [address] Dr. Timi Prater EGFR-AF MONTENEGRIN >60 Normal >=60 [facility] Comment on above: Performed By: #### O VAPE #### [facility] [address] [place] [address] Dr. Timi Prater EGFR-NON AF MONTENEGRIN >60 Normal >=60 [facility] Comment on above: Performed By: #### O VAPE #### [facility] [address] [place] [address] Dr. Timi Prater Globulin (S) [Mass/Vol] 3.3 g/dL Normal [facility] Comment on above: Performed By: #### O VAPE #### [facility] [address] [place] [address] Dr. Timi Prater Glucose [Mass/Vol] 107 mg/dL Critically high 74-106 [facility] Comment on above: Performed By: #### O VAPE #### [facility] [address] [address] [address] Timi Prater Potassium [Moles/Vol] 3.7 mmol/L Normal 3.5-5.1 [facility] Comment on above: Performed By: #### O VAPE #### [facility] [address] [address] [address] Timi Prater Protein [Mass/Vol] 7.5 g/dL Normal 6.4-8.2 [facility] Comment on above: Performed By: #### O VAPE #### [facility] [address] [address] [address] Timi Prater Sodium [Moles/Vol] 139 mmol/L Normal 136-145 [facility] Comment on above: Performed By: #### O VAPE #### [facility] [address] [address] [address] Timi Prater Urea nitrogen [Mass/Vol] 14.0 mg/dL Normal 7.0-18.0 [facility] Comment on above: Performed By: #### O VAPE #### [facility] [address] [address] [address] Timi Prater Urea nitrogen/Creatinine [Mass ratio] 19.2 mg/mg [facility] Comment on above: Performed By: #### O VAPE #### [facility] [address] [address] [address] Timi Prater PAP ACOG PANEL 2: 19 to 27on 08-21-2022 . . Normal [facility] Comment on above: Performed By: #### O VAPE #### [facility] [address] [address] [address] Timi Prater Age Gdln ACOG Testing - Normal [facility] Comment on above: Performed By: #### O VAPE #### [facility] [address] [address] [address] Timi Prater DIAGNOSIS: Comment Abnormal [facility] Comment on above: Result Comment: EPIT HELIAL CELL ABNORMALITY. ATYPICAL SQUAMOUS CELLS OF UNDETERMINED SIGNIFICANCE (ASC-US). Performed By: #### O VAPE #### [facility] [address] [place] [address] Dr. Timi Prater Electronically signed by: Comment Normal [facility] Comment on above: Result Comment: Eloise Segal MD, Pathologist Performed By: #### O VAPE #### [facility] [address] [place] [address] Dr. Timi Prater HPV Aptima Negative Normal Negative [facility] Comment on above: Result Comment: This nucleic acid amplification test detects fourteen high-risk HPV types (16,18,31,33,35,39,45,51,52,56,58,59,66,68) without differentiation. Performed By: #### O VAPE #### [facility] [address] [place] [address] Dr. Timi Prater Methodology: Comment Normal [facility] Comment on above: Result Comment: This liquid based ThinPrep(R) pap test was screened with the use of an image guided system. Performed By: #### O VAPE #### [facility] [address] [place] [address] Dr. Timi Prater Note: Comment Normal [facility] Comment on above: Result Comment: The Pap smear is a screening test designed to aid in the detection of premalignant and malignant conditions of the uterine cervix. It is not a diagnostic procedure and should not be used as the sole means of detecting cervical cancer. Both false-positive and false-negative reports do occur. . Performed By: #### O VAPE #### [facility] [address] [place] [address] Dr. Timi Prater Pathologist Provided ICD10 Comment Normal [facility] Comment on above: Result Comment: R87. [id number] Performed By: #### O VAPE #### [facility] [address] [place] [address] Dr. Timi Prater Performed by: Comment Normal [facility] Comment on above: Result Comment: Lizet Holguin, Disposal Plant Operator (ASCP) Performed By: #### O VAPE #### [facility] [address] [place], [place] [id number] Dr. Timi Prater Recommendation: Comment Abnormal [facility] Comment on above: Result Comment: Sugg est follow up as clinically appropriate. Performed By: #### O VAPE #### [facility] [address] [address] [address] Timi Prater Reflex Criteria: Comment Normal [facility] Comment on above: Result Comment: See below for HPV testing results. . Performed By: #### O VAPE #### [facility] [address] [address] [address] Timi Prater Specimen adequacy: Comment Normal [facility] Comment on above: Result Comment: Sati sfactory for evaluation. Endocervical and/or squamous metaplastic cells (endocervical component) are present. Performed By: #### O VAPE #### [facility] [address] [place] [address] Dr. Timi Prater on 08-15-2022 HP H&P reviewed. The shelby marx was examined and there are no changes to the H&P. Normal [facility] Orders Onlyon 08-08-2022 Orders Only [id number] [place]Rosa 2000 F Date Provider Department Center 08/08/20222030-ROSHAN AVITIA [facility] DIPTI No family history on file Normal [facility] 29on 08-02-2022 29 Addended by: OBIE NELSON on: 08/04/2022 03:16 AM Modules accepted: Level of Service Normal [facility] HPon 08-02-2022 HP ----- ----- Attestation signed by Obie Nelson MD at 08/04/2022 3:16 AM I personally saw the patient on the day of the encounter, performed the murray portion(s) of the service and participated in the management and confirm the Nurse practitioner's documentation. 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 ----- [facility] Gastroenterology Follow-Up Patient Visit CHIEF COMPLAINT Chief Complaint Patient presents with f/u c diff HISTORY OF PRESENT ILLNESS: Rosa Alonzo is a 21 y.o. female with PMHx of idiopathic pancreatitis, here with recurrent C. Diff infection. 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 Initially dx with C. Diff in 2019, s/p treatment with Vancomycin, then subsequent mild improvement without confirmation, however one year later she tested positive for C. Diff again (09/2021). Patient underwent colonoscopy (normal endo and microscopic exams), treatment with Fidaxomicin and subsequent FMT (even though at the time she had negative antigen test). INTERVAL HISTORY 08/02/2022: After FMT in December 2021 she was feeling well. Went to new [facility] in April and had stool samples done, although she was not having any symptoms at the time. In June she was started on antibiotics including Flagyl and Cipro due to positive stool samples (+ Klebsiella Raoultella, Hafnia, streptococcus parasanguinis, and streptococcus salivarius/vestibularis). She was negative for C. Diff at this time. After finishing this course of antibiotic she began to experience fevers, chills, and lower abdominal cramping. She was then tested for C. Diff 07/28/2022 and found to be positive. She is currently on Dificid 200mg BID. Now having 1 BM daily, BSS 4-5, with intermittent abdominal pain and fatigue. Denies hematochezia and melena. PREVIOUS LABS/IMAGING/ENDOSCOPY: Colonoscopy w/ FMT (12/29/2021): FINDIN. Unremarkable colon examination. No ulceration, no pseudomembrane seen. 2. Successful positioning of 100 g of stool donor mixed with 120 mL of normal saline. RECOMMENDATION: We will start the patient on saccharomyces boulardii 500mg p.o. b.i.d. for 4 weeks. HISTORY: Problem list: Patient Active Problem List Diagnosis Clostridium difficile colitis Bile reflux gastritis Allergy to food Anxiety about health Body mass index (BMI) of 20 to 24 Borborygmi Chronic fatigue Altered bowel function Lower abdominal pain Generalized anxiety disorder Irritable bowel syndrome with diarrhea Nausea Recurrent infections Underweight Urticaria Past Medical History: History reviewed. No pertinent past medical history. Past Surgical History: History reviewed. No pertinent surgical history. FAMILY HISTORY: No family history on file. SOCIAL HISTORY: Social History Tobacco Use Smoking status: Never Smokeless tobacco: Never Vaping Use Vaping Use: Never used Substance Use Topics Alcohol use: Never Drug use: Yes Types: Marijuana ALLERGIES: Metronidazole Current Medications: Current Outpatient Medications: fidaxomicin (Dificid) 200 mg tablet, , Disp: , Rfl: ciprofloxacin (Cipro) 250 mg tablet, every 8 (eight) hours., Disp: , Rfl: clotrimazole (Mycelex) 10 mg lexis, 1 lozenge every 12 (twelve) hours., Disp: , Rfl: dicyclomine (Bentyl) 20 mg tablet, 1 tablet, Disp: , Rfl: fluconazole (Diflucan) 100 mg tablet, 1 (one) time each day at the same time., Disp: , Rfl: metroNIDAZOLE (Flagyl) 250 mg tablet, every 8 (eight) hours., Disp: , Rfl: ondansetron ODT (Zofran-ODT) 4 mg disintegrating tablet, DISSOLVE 1 TAB ON TONGUE EVERY 6 HOURS NEEDED, Disp: , Rfl: polyethylene glycol (Golytely) 236-22.74-6.74 -5.86 gram solution, Take 4,000 mL by mouth 1 (one) time for 1 dose., Disp: 4000 mL, Rfl: 0 saccharomyces boulardii (Florastor) 250 mg capsule, 1-2 capsules, Disp: , Rfl: I reviewed and reconciled this patient's medication list today. The list included in this note is the most up to date list that I can attest to at this time based on the information that the patient has provided me and the electronic medical record. REVIEW OF SYSTEMS: See HPI, otherwise ROS as below CONSTITUTIONAL: negative HEENT: negative RESPIRATORY: negative CARDIOVASCULAR: negative GASTROINTESTINAL: As in HPI GENITOURINARY: negative INTEGUMENT/BREAST: negative MUSCULOSKELETAL: negative NEUROLOGICAL: negative BEHAVIOR/PSYCH: negative PHYSICAL EXAM: Vitals: 08/02/22 0921 BP: 115/68 BP Location: Left arm Patient Position: Sitting BP Cuff Size: Small adult Pulse: 86 Weight: 52.6 kg (116 lb) Height: 1.626 m (5' 4 ) Body mass index is 19.91 kg/m???. CONSTITUTIONAL: awake, alert and no apparent distress EYES: pupils equal, round and reactive to light; conjunctiva pink and normal (more content not included)... Normal [facility] Office Visiton 08-02-2022 Follow-up visit [id number] Rosa Alonzo 2000 F Date Provider Department Center 08/02/2022 OBIE CHAHAL [facility] No family history on file Level of Service:05679 [place] OFFICE/OUTPATIENT ESTABLISHED MOD MDM 30-39 MIN Reason for Visit and Comments: f/u c diff [Other] Normal [facility] C. DIFF PCRon 07-27-2022 C. DIFFICILE PCR Positive Critically abnormal NEGATIVE [facility] Comment on above: Performed By: #### T HYRABS #### [facility] [address] [address] [address] Timi Prater C. DIFF PCRon 07-13-2022 C. DIFFICILE PCR Negative Normal NEGATIVE [facility] Comment on above: Performed By: #### C DIFPOC #### [facility] [address] [address] [address] Timi Prater US SINGLE QUAD RT UPPERon US SINGLE QUAD RT UPPER EXAMINATION: US SINGLE QUAD RT UPPER HISTORY: Irritable bowel syndrome with diarrhea COMPARISON: 10/24/2021 FINDINGS: The liver is normal in size, contour and echotexture. No focal mass. The visualized pancreas is normal in appearance The gallbladder is normal in appearance. The wall measures 1.4 mm. No cholelithiasis. Negative Omalley sign. Common bile duct measures 2.9 mm, normal The right kidney measures 10.9 x 5.1 x 3.5 cm. Area of anechoic echogenicity measuring 1.3 cm, simple cyst IMPRESSION: No acute abnormality Electronically authenticated by: DARA HUMPHREY Date: 2022-05-11 17:22 Normal [facility] FECAL FAT QUANTITATIVEon Fecal Weight (Total) 233 g Normal [facility] Comment on above: Performed By: #### C ALPOO #### [facility] [address] [place] [address] Dr. Timi Prater Fecal, (Fecal Lipids)Qn 1.3 g/24 hr Normal 0.0-7.1 [facility] Comment on above: Result Comment: This value is based on a 72 hour stool collection. Performed By: #### C ALPOO #### [facility] [address] [place] [address] Dr. Timi Prater LACTOFERRIN FECAL QUANTon Lactoferrin, Fecal, Quant. <1.00 Normal 0.00-7.24 [facility] Comment on above: Result Comment: Re sults verified by repeat testing . Baseline (normal) 0.00 - 7.24 Elevated >7.24 . An elevated result is indicative of the presence of fecal lactoferrin, a marker of intestinal inflammation. A normal result does not exclude the presence of intestinal inflammation. The test can be used as an in vitro diagnostic aid to distinguish patients with active inflammatory bowel disease (IBD) from those with non-inflammatory irritable bowel syndrome (IBS). Performed By: #### C ALPOO #### [facility] [address] [place] [address] Dr. Timi Prater PANCREATIC ELASTASE FECALon 05-05-2022 Pancreatic Elastase, Fecal 369 ug Elast./g Normal >200 [facility] Comment on above: Result Comment: Tia re Pancreatic Insufficiency: <100 Moderate Pancreatic Insufficiency: 100 - 200 Normal: >200 Performed By: #### T HYRABS #### [facility] [address] [place] [address] Dr. Timi Prater C. DIFF PCRon 04-17-2022 C. DIFFICILE PCR Negative Normal NEGATIVE [facility] Comment on above: Performed By: #### O VAPE #### [facility] [address] [place] [address] Dr. Timi Prater Abstracton 04-01-2022 Abstract [id number] David Henao 2000 F Date Provider Department Center 04/01/2022 REYNA RODRIGUEZ [facility] No family history on file Normal [facility] GI PANEL (PCR)on 03-17-2022 Adenovirus F 40/41 Not detected Normal NOT DETECTED [facility] Comment on above: Performed By: #### G IPANEL #### [facility] [address] [place] [address] Dr. Timi Prater Astrovirus Not detected Normal NOT DETECTED [facility] Comment on above: Performed By: #### G IPANEL #### [facility] [address] [place] [address] Dr. Timi Prater C. Diff toxin A/B Not detected Normal NOT DETECTED [facility] Comment on above: Performed By: #### G IPANEL #### [facility] [address] [place] [address] Dr. Timi Prater Campylobacter Not detected Normal NOT DETECTED [facility] Comment on above: Performed By: #### G IPANEL #### [facility] [address] [place] [address] Dr. Timi Prater Cryptosporidium Not detected Normal NOT DETECTED [facility] Comment on above: Performed By: #### G IPANEL #### [facility] [address] [place] [address] Dr. Timi Prater Cyclos. Cayetanensis Not detected Normal NOT DETECTED [facility] Comment on above: Performed By: #### G IPANEL #### [facility] [address] [place] [address] Dr. Timi Prater E. Coli O157 Not Applicable Normal Not Applicable [facility] Comment on above: Performed By: #### G IPANEL #### [facility] [address] [place] [address] Dr. Timi Prater E. histolytica Not detected Normal NOT DETECTED [facility] Comment on above: Performed By: #### G IPANEL #### [facility] [address] [place] [address] Dr. Timi Prater EAEC Not detected Normal NOT DETECTED [facility] Comment on above: Performed By: #### G IPANEL #### [facility] [address] [place] [address] Dr. Timi Prater EIEC Not detected Normal NOT DETECTED [facility] Comment on above: Performed By: #### G IPANEL #### [facility] [address] [place] [address] Dr. Timi Prater EPEC Not detected Normal NOT DETECTED [facility] Comment on above: Performed By: #### G IPANEL #### [facility] [address] [place] [address] Dr. Timi Prater ETEC Not detected Normal NOT DETECTED [facility] Comment on above: Performed By: #### G IPANEL #### [facility] [address] [place] [address] Dr. Timi Laura Lamblia Not detected Normal NOT DETECTED [facility] Comment on above: Performed By: #### G IPANEL #### [facility] [address] [place] [address] Dr. Timi WHARTON CONTROLS PASSED Normal [facility] Comment on above: Performed By: #### G IPANEL #### [facility] [address] [place] [address] Dr. Timi QUINTANILLA [facility] HEADER GI PANEL BACTERIA Normal [facility] Comment on above: Performed By: #### G IPANEL #### [facility] [address] [place] [address] Dr. Timi FAJARDO ECOLI GI PANEL DIARRHEAGEN IC E.COLI / SHIGELLA Normal [facility] Comment on above: Performed By: #### G IPANEL #### [facility] [address] [place] [address] Dr. Timi FAJARDO INFO SEE BELOW Normal [facility] Comment on above: Result Comment: EAEC - Enteroaggregative E. Coli EPEC- Enteropathogenic E. Coli ETEC- Enterotoxigenic E. Coli lt/st STEC- Shigella-like toxin-producing E. Coli stx1/stx2 EIEC- Shigella/Enteroinvasive E. Coli Performed By: #### G IPANEL #### [facility] [address] [place] [address] Dr. Timi FAJARDO PARASITES GI PANEL PARASITES Normal [facility] Comment on above: Performed By: #### G IPANEL #### [facility] [address] [address] [address] Timi FAJARDO VIRUS GI PANEL VIRUSES Normal [facility] Comment on above: Performed By: #### G IPANEL #### [facility] [address] [place] [address] Dr. Timi Prater Norovirus GI/GII Not detected Normal NOT DETECTED [facility] Comment on above: Performed By: #### G IPANEL #### [facility] [address] [place] [address] Dr. Timi Prater P. Shigelloides Not detected Normal NOT DETECTED [facility] Comment on above: Performed By: #### G IPANEL #### [facility] [address] [place] [address] Dr. Timi Prater Rotavirus A Not detected Normal NOT DETECTED [facility] Comment on above: Performed By: #### G IPANEL #### [facility] [address] [place] [address] Dr. Timi Prater Salmonella Not detected Normal NOT DETECTED [facility] Comment on above: Performed By: #### G IPANEL #### [facility] [address] [place] [address] Dr. Timi Prater Sapovirus Not detected Normal NOT DETECTED [facility] Comment on above: Performed By: #### G IPANEL #### [facility] [address] [place] [address] Dr. Timi Prater STEC Not detected Normal NOT DETECTED [facility] Comment on above: Performed By: #### G IPANEL #### [facility] [address] [place] [address] Dr. Timi Prater Vibrio Not detected Normal NOT DETECTED [facility] Comment on above: Performed By: #### G IPANEL #### [facility] [address] [place] [address] Dr. Timi Prater Vibrio Cholera Not detected Normal NOT DETECTED [facility] Comment on above: Performed By: #### G IPANEL #### [facility] [address] [place] [address] Dr. Timi Prater Y. Enterocolitica Not detected Normal NOT DETECTED [facility] Comment on above: Performed By: #### G IPANEL #### [facility] [address] [place] [address] Dr. Timi Prater STOOL CULTUREon 03-01-2022 Campylobacter Culture Final report Normal [facility] Comment on above: Performed By: #### C XSTOOL #### [facility] [address] [place] [address] Dr. Timi Prater E coli Shiga Toxin EIA Negative Normal Negative [facility] Comment on above: Performed By: #### C XSTOOL #### [facility] [address] [place] [address] Dr. Timi Prater Result 1 Comment Normal [facility] Comment on above: Result Comment: No S almonella or Shigella recovered. Performed By: #### C XSTOOL #### [facility] [address] [place] [address] Dr. Timi Prater Result Comment: No C ampylobacter species isolated. Salmonella/Shigella Screen Final report Normal [facility] Comment on above: Performed By: #### C XSTOOL #### [facility] [address] [place] [address] Dr. Timi Prater CLOSTRIDIUM DIFFICILE PCRon 02-03-2022 C difficile Toxin Gene RUCHI Negative Normal Negative [facility] Comment on above: Performed By: #### C DIFPOC #### [facility] [address] [place] [address] Dr. Timi Prater C. DIFF PCRon 01-14-2022 C. DIFFICILE PCR Negative Normal NEGATIVE [facility] Comment on above: Performed By: #### C ALPOO #### [facility] [address] [place] [address] Dr. Timi Prater Endoscopy Reporton Endoscopy Report MR#: [id number] [facility] Pt. Name: Rosa Henao Surgery Date: 12/29/2021 Room #: Z0 Date of : 2000 PROCEDURE NOTE ATTENDING: Zenon Huggins MD PROCEDURE: Colonoscopy with FMT. INDICATION FOR PROCEDURE: Recurrent C diff. TYPE OF ANESTHESIA: Conscious sedation, 6 mg of Versed, 150 mcg of fentanyl, and 25 mg of Benadryl. 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 QUALITY OF THE PREP: Good. DESCRIPTION OF PROCEDURE: Risks and benefits were explained to the patient. Risks including bleeding, perforation, aspiration, medication side effects. The patient was agreeable. IV line was started and then the patient was brought to endoscopy room. After achieving proper sedation, the patient was positioned in left lateral decubitus position. Proper monitoring devices were placed. Rectal examination was done first and then adult colonoscope introduced into the anorectal area, traversed all the way to the cecum, which was identified by ileocecal valve, appendicular orifice. Terminal ileum was intubated and it appeared unremarkable. 100 g of donor stool mixed with 125 mL of saline was successfully deployed in the terminal ileum and the cecum. The scope was drawn and the patient tolerated the procedure well. No immediate complication. FINDIN. Unremarkable colon examination. No ulceration, no pseudomembrane seen. 2. Successful positioning of 100 g of stool donor mixed with 120 mL of normal saline. RECOMMENDATION: We will start the patient on saccharomyces boulardii 500 mg p.o. b.i.d. for 4 weeks. Electronically Signed by: Zenon Huggins MD 12/30/2021 09:21 A Zenon Huggins MD I was present for the entire procedure from insertion of the scope until it was withdrawn. Date Dict: 12/29/2021/12:24 P/Darren Baig MD Date Trans: 12/30/2021 03:17 A/tamika [id number] cc: Colby Augustin M.D. [address] [facility] [id number] [place] [facility] POC SARS COV2 IDon 2 SARS-CoV-2 (COVID-19) RNA RUCHI+probe Ql (Unsp spec) Negative Normal NEGATIVE [facility] Comment on above: Result Comment: ID N OW COVID-19 assay performed on the ID NOW Instrument is a rapid molecular in vitro diagnostic test utilizing an isothermal nucleic acid amplification technology intended for the qualitative detection of nucleic acid from the SARS-CoV-2 virus in direct anterior nasal (nasal), nasopharyngeal or throat swabs from individuals who are suspected of COVID-19 by their healthcare provider within the first seven days of the onset of symptoms. Testing is limited to laboratories certified under the Clinical Laboratory Improvement Amendments of 1988 (CLIA), 42 U.S.C. ???263a,that meet the requirements to perform high, moderate, or waived complexity tests. The ID NOW COVID-19 assay is also authorized for use at the Point of Care (POC), i.e., in patient care settings operating under a CLIA Certificate of Waiver, Certificate of Compliance, or Certificate of Accreditation. Performed By: #### [id number] #### [facility] [address] [facility]. [address] POC URINE PREGNANCYon 2021 Beta HCG ( test) Ql (U) Negative Normal NEGATIVE [facility] Comment on above: Result Comment: Perf ormed in PACU Performed By: #### [id number] #### [facility] [address] [facility]. [address] General Surgery Office/Clini c Noteon 07-08-2021 General Surgery Office/Clinic Note Chief Complaint post operative follow up HPI Staff 9 day post operative follow up post EGD with antrum and duodenal biopsies. Prescribed Carafate after EGD, she is taking this as prescribed. Notes improvement is symptoms. History of Present Illness 9 days s/p EGD with biopsies, evidence of bile reflux; antral bx with inactive gastritis, duodenal biopsy with inactive duodenitis; no H pylori or evidence of gluten enteropathy; patient improved with carafate. Review of Systems ROS - Provider Constitutional: no fever, no sweats, no weight loss. Eyes: no glasses, no blurred vision, no visual loss. ENMT: no dentures, no hoarseness, no swallowing difficulties, no hearing loss, no ear infection(s), no nose bleeds. Cardiovascular: normal blood pressure, no chest pain, regular heartbeat, no heart murmur. Respiratory: no shortness of breath, no cough, no asthma, no wheezing. Gastrointestinal: no nausea, no vomiting, no diarrhea, no constipation, no blood in stool, no change in bowel habits, no abdominal pain, no hepatitis. Genitourinary: no kidney stones, no urine infection, no dysuria. Musculoskeletal: no pain, no weakness. Skin: no changing moles, no rash, no skin lumps. Neurologic: no seizures, no epilepsy, no headache. Psychiatric: no emotional or psychiatric problem. Heme/Lymph: no bleeding problems, no anemia, no blood clots, no transfusions. Allergy/Immunologic: no swollen lymph nodes/glands, no IV drug abuse. Other: Additional ROS info: Except as noted in the above Review of Systems and in the History of Present Illness, all other systems have been reviewed and are negative or noncontributory. Physical Exam Vitals & Measurements T: 36.5 ?C(Temporal Artery) Assessment/Plan 1. 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 Follow-up No qualifying data available Problem List/Past Medical History Ongoing Abdominal pain, bilateral lower quadrant Abdominal pain, generalized Bile reflux gastritis BMI 21.0-21.9, adult Borborygmi Change in bowel habits Frequent loose stools IBS (irritable bowel syndrome) Nausea Historical Acute gastroenteritis Epigastric pain Fatigue GERD - Gastro-esophageal reflux disease Headache Insomnia Numbness of upper limb Ovarian cyst Pancreatitis Paresthesia Pleurisy Syncope Weight loss Procedure/Surgical History EGD - Esophagogastroduodenoscop y (06/29/2021), Removal of mole of skin by excision (07/23/2020), Extraction of wisdom tooth (07/23/2016). Medications sucralfate tab, 1 gm= 1 tab(s), Oral, QIDACHS Allergies No Known Allergies Social History Alcohol - Denies Alcohol Use, 06/21/2021 Substance Abuse - Denies Substance Abuse, 06/21/2021 Tobacco Never (less than 100 in lifetime) Tobacco Use:., 06/21/2021 Family History Cancer: Father. Stroke: Mother. Normal [facility] Comment on above: Result Comment: Elec tronically Signed By: KALEB MACKEY, Ana Lan\Date and Time Signed: 07/08/21 16:21 EST Pathology Noteon 07-04-2021 Pathology Note [id number]:12 7 Normal [facility] Operative Reporton Operative Report [id number]:127 Normal [facility] Lab Reportson 06-27-2021 Lab Reports [id number]:12 7 [facility] Consent for Procedure/Surger yon 06-22-2021 Consent for Procedure/Surgery [id number]:12 7 Normal [facility] June 22, 2021 Colby Augustin, [address] [place] [address] Re: ROSA HENAO Date of : 2000 Thank you for your referral of Rosa Henao who was seen on consultation on 06/21/2021 for daily nausea with abdominal cramping. An EGD is planned for further evaluation. I have enclosed my consultation note for your review. I will be happy to follow Rosa. Sincerely, Ana De La Cruz MD General Surgery [facility] Ambulatory Clinical Summaryo n 06-21-2021 Ambulatory Clinical Summary {[id number] [facility] Physician Referralon 021 Physician Referral [id number]:12 7 [facility] COVID Quick Testingon 2020 Result Negative [employer] Other S. pyogenes Ag Ql (Throat)on 10-14-2021 S. pyogenes Org specific cx Ql (Throat) Negative [employer] Other Ambulatory Clinical Summaryo n 01-04-2021 Ambulatory Clinical Summary {[id number] Normal [facility] General Surgery Office/Clini c Noteon 01-04-2021 General Surgery Office/Clinic Note Chief Complaint Post operative visit HPI Staff 6 Day s/p Colonoscopy completed on 12/29/2020 due to changes with bowel habits with frequent loose stools. Findings- mild mucosal inflammation. Bx obtained. History of Present Illness 1 week s/p colonoscopy due to loose stools; colonoscopy with redundant colon; normal terminal ileum, and on biopsy; mild inflammation of rectum, biopsy with normal mucosa; doing well. Assessment/Plan 1. IBS (irritable bowel syndrome) (K58.9: Irritable bowel syndrome without diarrhea) high fiber diet and daily fiber supplement; call with problems/questions. Follow-up No qualifying data available Problem List/Past Medical History Ongoing Abdominal pain, bilateral lower quadrant BMI 20.0-20.9, adult Change in bowel habits Frequent loose stools IBS (irritable bowel syndrome) Historical Acute gastroenteritis Epigastric pain Fatigue GERD - Gastro-esophageal reflux disease Headache Insomnia Numbness of upper limb Ovarian cyst Pancreatitis Paresthesia Pleurisy Syncope Weight loss Procedure/Surgical History Removal of mole of skin by excision (07/23/2020), Extraction of wisdom tooth (07/23/2016). Medications Acidophilus Probiotic Blend, Oral, Daily Lexapro 20 mg Tab, 20 mg= 1 tab(s), Oral, Daily Allergies No Known Allergies Social History Tobacco Never (less than 100 in lifetime) Tobacco Use:., 01/04/2021 Family History Cancer: Father. Stroke: Mother. Normal [facility] Comment on above: Result Comment: Elec tronically Signed By: KALEB MACKEY, Ana Lan\Date and Time Signed: 01/04/21 14:32 EDT Pathology Noteon 01-01-2021 Pathology Note [id number]:1 27 Normal [facility] Outside Colonoscopyon 2020 Outside Colonoscopy [id number]:1 27 [facility] Lab Reportson 12-29-2020 Lab Reports [id number]:12 7 [facility] Consent for Procedure/Surger yon 12-08-2020 Consent for Procedure/Surgery [id number]:12 7 [facility] Provider Letter FTon 12-08 Provider Letter [facility] (Inserted Image. Un able to display) Colby Augustin, [facility] [place] [address] Re: ROSA HENAO Date of : 2000 Thank you for your referral of Rosa Henao who was seen on consultation on December 07, 2020, for colonoscopy due to abdominal pain and diarrhea. A colonoscopy is planned. I have enclosed my consultation notes for your review. I will be happy to follow Rosa should her symptoms persist. Sincerely, Ana De La Cruz MD General Surgery [facility] Ambulatory Clinical Summaryo n 12-07-2020 Ambulatory Clinical Summary {[id number] [facility] Patient Educationon 12-08-19 Patient Education Preventive Health Exercising to Stay Healthy To become healthy and stay healthy, it is recommended that you do moderate-intensity and vigorous-intensity exercise. You can tell that you are exercising at a moderate intensity if your heart starts beating faster and you start breathing faster but can still hold a conversation. You can tell that you are exercising at a vigorous intensity if you are breathing much harder and faster and cannot hold a conversation while exercising. Exercising regularly is important. It has many health benefits, such as: ? Improving overall fitness, flexibility, and endurance. ? Increasing bone density. ? Helping with weight control. ? Decreasing body fat. ? Increasing muscle strength. ? Reducing stress and tension. ? Improving overall health. How often should I exercise? Choose an activity that you enjoy, and set realistic goals. Your health care provider can help you make an activity plan that works for you. Exercise regularly as told by your health care provider. This may include: ? Doing strength training two times a week, such as: ? Lifting weights. ? Using resistance bands. ? Push-ups. ? Sit-ups. ? Yoga. ? Doing a certain intensity of exercise for a given amount of time. Choose from these options: ? A total of 150 minutes of moderate-intensity exercise every week. ? A total of 75 minutes of vigorous-intensity exercise every week. ? A mix of moderate-intensity and vigorous-intensity exercise every week. Children, women, people who have not exercised regularly, people who are overweight, and older adults may need to talk with a health care provider about what activities are safe to do. If you have a medical condition, be sure to talk with your health care provider before you start a new exercise program. What are some exercise ideas? Moderate-intensity exercise ideas include: ? Walking 1 mile (1.6 km) in about 15 minutes. ? Biking. ? Hiking. ? Golfing. ? Dancing. ? Water aerobics. Vigorous-intensity exercise ideas include: ? Walking 4.5 miles (7.2 km) or more in about 1 hour. ? Jogging or running 5 miles (8 km) in about 1 hour. ? Biking 10 miles (16.1 km) or more in about 1 hour. ? Lap swimming. ? Roller-skating or in-line skating. ? Cross-country skiing. ? Vigorous competitive sports, such as football, basketball, and soccer. ? Jumping rope. ? Aerobic dancing. What are some everyday activities that can help me to get exercise? ? Yard work, such as: ? Pushing a carpenter assistant installer. ? Raking and bagging leaves. ? Washing your car. ? Pushing a stroller. ? Shoveling snow. ? Gardening. ? Washing windows or floors. How can I be more active in my day-to-day activities? ? Use stairs instead of an elevator. ? Take a walk during your lunch break. ? If you drive, park your car farther away from your work or school. ? If you take public transportation, get off one stop early and walk the rest of the way. ? Stand up or walk around during all of your indoor phone calls. ? Get up, stretch, and walk around every 30 minutes throughout the day. ? Enjoy exercise with a friend. Support to continue exercising will help you keep a regular routine of activity. What guidelines can I follow while exercising? ? Before you start a new exercise program, talk with your health care provider. ? Do not exercise so much that you hurt yourself, feel dizzy, or get very short of breath. ? Wear comfortable clothes and wear shoes with good support. ? Drink plenty of water while you exercise to prevent dehydration or heat stroke. ? Work out until your breathing and your heartbeat get faster. Where to find more information ? U.[place]. Department of Health and Human Services: www.hhs.gov ? Centers for Disease Control and Prevention (CDC): www.cdc.gov Summary ? Exercising regularly is important. It will improve your overall fitness, flexibility, and endurance. ? Regular exercise also will improve your overall health. It can help you control your weight, reduce stress, and improve your bone density. ? Do not exercise so much that you hurt yourself, feel dizzy, or get very short of breath. ? Before you start a new exercise program, talk with your health care provider. This information is not intended to replace advice given to you by your health care provider. Make sure you discuss any questions you have with your health care provider. Document Released: 08/11/2011 Document Revised: 06/21/2018 Document Reviewed: 05/30/2018 [employer] Patient Education ? 2020 [employer] Radiology Colonoscopy, Adult A colonoscopy is an exam to look at the entire large intestine. During the exam, a lubricated, flexible tube that has a camera on the end of it is inserted into the anus and then passed into the rectum, colon, and other parts of the large intestine. You may have a colonoscopy as a part of normal colorectal screening or if you have certain (more content not included)... Normal [facility] Physician Referralon 021 Physician Referral [id number]:12 7 Normal [facility] No Panel Informationon 12-02 [facility] Vital Signs Date Time Vital Sign Value Performing Clinician Facility 12-05-2023 13:45-0400 Body height 162.6 cm Ariella Mccoy APRN.ANALYSIS MGR Work Phone: [facility] 12-05-2023 13:45-0400 Body mass index (BMI) [Ratio] 19.22 kg/m2 Ariella Mccoy APRN.ANALYSIS MGR Work Phone: [facility] 12-05-2023 13:45-0400 Body temperature 98.01 [degF] Ariella Mccoy APRN.ANALYSIS MGR Work Phone: [facility] 12-05-2023 13:45-0400 Body weight 50.8 kg Ariella Mccoy APRN.ANALYSIS MGR Work Phone: [facility] 12-05-2023 13:45-0400 Diastolic blood pressure 64 mm[Hg] Ariella Mccoy APRN.ANALYSIS MGR Work Phone: [facility] 12-05-2023 13:45-0400 Heart rate 90 /min Ariella Mccoy APRN.ANALYSIS MGR Work Phone: [facility] 12-05-2023 13:45-0400 SaO2% (BldA) [Mass fraction] 99 % Ariella Mccoy APRN.ANALYSIS MGR Work Phone: [facility] 12-05-2023 13:45-0400 Systolic blood pressure 106 mm[Hg] Ariella Mccoy APRN.ANALYSIS MGR Work Phone: [facility] 11-29-2023 11:15-0400 Body height 162.56 cm [facility] 11-29-2023 11:15-0400 Body mass index (BMI) [Ratio] 18.7 kg/m2 [facility] 11-29-2023 11:15-0400 Body weight 49.58 kg [facility] 11-29-2023 11:15-0400 Diastolic blood pressure 60 mm[Hg] [facility] 11-29-2023 11:15-0400 Heart rate 83 /min [facility] 11-29-2023 11:15-0400 Respiratory rate 18 /min [facility] 11-29-2023 11:15-0400 SaO2% (BldA) [Mass fraction] 98 % [facility] 11-29-2023 11:15-0400 Systolic blood pressure 110 mm[Hg] [facility] 11-15-2023 14:44-0400 Body height 162.6 cm Pacc 1 Other Phone: [facility] 11-15-2023 14:44-0400 Body mass index (BMI) [Ratio] 20.06 kg/m2 Pacc 1 Other Phone: [facility] 11-15-2023 14:44-0400 Body temperature 97.11 [degF] Pacc 1 Other Phone: [facility] 11-15-2023 14:44-0400 Body weight 53 kg Pacc 1 Other Phone: [facility] 11-15-2023 14:44-0400 Diastolic blood pressure 67 mm[Hg] Pacc 1 Other Phone: [facility] 11-15-2023 14:44-0400 Heart rate 75 /min Pacc 1 Other Phone: [facility] 11-15-2023 14:44-0400 Respiratory rate 18 /min Pacc 1 Other Phone: [facility] 11-15-2023 14:44-0400 SaO2% (BldA) [Mass fraction] 100 % Pacc 1 Other Phone: [facility] 11-15-2023 14:44-0400 Systolic blood pressure 110 mm[Hg] Pacc 1 Other Phone: [facility] 10-22-2023 14:44-0400 Body height 162.6 cm Sedrick Rushing MD Work Phone: [facility] 10-22-2023 14:44-0400 Body weight 52.62 kg Sedrick Rushing MD Work Phone: [facility] 10-22-2023 14:44-0400 Diastolic blood pressure 62 mm[Hg] Sedrick Rushing MD Work Phone: [facility] 10-22-2023 14:44-0400 Heart rate 40 /min Sedrick Rushing MD Work Phone: [facility] 10-22-2023 14:44-0400 Systolic blood pressure 102 mm[Hg] Sedrick Rushing MD Work Phone: [facility] 09-06-2023 14:00-0500 Heart rate 68 /min Isabelle Menon MD Work Phone: [facility] 09-06-2023 14:00-0500 Respiratory rate 22 /min Isabelle Menon MD Work Phone: [facility] 09-06-2023 14:00-0500 SaO2% (BldA) [Mass fraction] 100 % Isabelle Menon MD Work Phone: [facility] 09-06-2023 13:45-0500 Diastolic blood pressure 76 mm[Hg] Isabelle Menon MD Work Phone: [facility] 09-06-2023 13:45-0500 Systolic blood pressure 101 mm[Hg] Isabelle Menon MD Work Phone: [facility] 09-06-2023 13:27-0500 Body temperature 97.2 [degF] Isabelle Menon MD Work Phone: [facility] 06-06-2023 11:42-0500 Body weight 51.26 kg Isabelle Menon MD Work Phone: [facility] 06-06-2023 11:42-0500 Diastolic blood pressure 71 mm[Hg] Isabelle Menon MD Work Phone: [facility] 06-06-2023 11:42-0500 Heart rate 87 /min Isabelle Menon MD Work Phone: [facility] 06-06-2023 11:42-0500 Systolic blood pressure 104 mm[Hg] Isabelle Menon MD Work Phone: [facility] 05-24-2023 11:30-0400 Body height 162.56 cm Analia Holliday Other [employer] Other 05-24-2023 11:30-0400 Body mass index (BMI) [Ratio] 20.48 kg/m2 Analia Holliday Other [employer] Other 05-24-2023 11:30-0400 Body weight 54.11 kg Analia Holliday Other [employer] Other 05-24-2023 11:30-0400 Diastolic blood pressure 60 mm[Hg] Analia Holliday Other [employer] Other 05-24-2023 11:30-0400 Respiratory rate 18 /min Analia Holliday Other [employer] Other 05-24-2023 11:30-0400 SaO2% (BldA) [Mass fraction] 99 % Analia Holliday Other [employer] Other 05-24-2023 11:30-0400 Systolic blood pressure 100 mm[Hg] Analia Holliday Other [employer] Other 05-22-2023 11:10-0400 Body height 162.6 cm Dara Butler Jr., DO Work Phone: [facility] 05-22-2023 11:10-0400 Body weight 52.3 kg Dara Butler Jr., DO Work Phone: [facility] 02-06-2023 10:10-0400 Body height 162.6 cm Dara Butler Jr., DO Work Phone: [facility] 02-06-2023 10:10-0400 Body weight 51.26 kg Dara Butler Jr., DO Work Phone: [facility] 02-06-2023 10:10-0400 Diastolic blood pressure 67 mm[Hg] Dara Butler Jr., DO Work Phone: [facility] 02-06-2023 10:10-0400 Heart rate 67 /min Dara Butler Jr., DO Work Phone: [facility] 02-06-2023 10:10-0400 SaO2% (BldA) [Mass fraction] 100 % Dara Butler Jr., DO Work Phone: [facility] 02-06-2023 10:10-0400 Systolic blood pressure 101 mm[Hg] Dara Butler Jr., DO Work Phone: [facility] 11-22-2022 10:00-0400 Body height 162.56 cm Silvano Reyez Other [employer] Other 11-22-2022 10:00-0400 Body mass index (BMI) [Ratio] 19.91 kg/m2 Silvano Reyez Other [employer] Other 11-22-2022 10:00-0400 Body weight 52.62 kg Silvano Reyez Other [employer] Other 11-22-2022 10:00-0400 Diastolic blood pressure 65 mm[Hg] Silvano Reyez Other [employer] Other 11-22-2022 10:00-0400 Systolic blood pressure 112 mm[Hg] Silvano Reyez Other [employer] Other 04-27-2022 14:30-0400 Body height 162.56 cm Jaya Parikh Other [employer] Other 04-27-2022 14:30-0400 Body mass index (BMI) [Ratio] 19.74 kg/m2 Jaya Parikh Other [employer] [facility] Other 04-27-2022 14:30-0400 Body weight 52.16 kg Jaya Parikh Other [facility] Other 03-15-2022 15:29-0400 Body height 162.6 cm Phani Presley MD Work Phone: [facility] 03-15-2022 15:29-0400 Body mass index (BMI) [Ratio] 19.6 kg/m2 Phani Presley MD Work Phone: [facility] 03-15-2022 15:29-0400 Body weight 51.8 kg Phani Presley MD Work Phone: [facility] 03-15-2022 15:29-0400 Diastolic blood pressure 60 mm[Hg] Phani Presley MD Work Phone: [facility] 03-15-2022 15:29-0400 Heart rate 74 /min Phani Presley MD Work Phone: [facility] 03-15-2022 15:29-0400 Respiratory rate 18 /min Phani Presley MD Work Phone: [facility] 03-15-2022 15:29-0400 SaO2% (BldA) [Mass fraction] 99 % Phani Presley MD Work Phone: [facility] 03-15-2022 15:29-0400 Systolic blood pressure 100 mm[Hg] Phani Presley MD Work Phone: [facility] 09-27-2021 12:00-0500 Body height 162.56 cm Jaya Thibodeauxremington Other [facility] Other 09-27-2021 12:00-0500 Body mass index (BMI) [Ratio] 19.74 kg/m2 Jaya Parikh Other [employer] Other 09-27-2021 12:00-0500 Body weight 52.16 kg Jaya Parikh Other [employer] Other 09-27-2021 12:00-0500 Diastolic blood pressure 74 mm[Hg] Jaya Parikh Other [employer] Other 09-27-2021 12:00-0500 Systolic blood pressure 106 mm[Hg] Jaya Parikh Other [employer] Other 05-05-2021 10:30-0400 Body height 162.56 cm Arlene Sruthi Other [employer] Other 05-05-2021 10:30-0400 Body mass index (BMI) [Ratio] 20.6 kg/m2 Arlene Albaault Other [employer] Other 05-05-2021 10:30-0400 Body temperature 99.1 [degF] Arlene Sruthi Other [employer] Other 05-05-2021 10:30-0400 Body weight 54.43 kg Arlene Sruthi Other [employer] Other 05-05-2021 10:30-0400 Respiratory rate 18 /min Arlene Sruthi Other [employer] Other 05-05-2021 10:30-0400 SaO2% (BldA) [Mass fraction] 97 % Arlene Sruthi Other [employer] Other Encounters Encounter Date Encounter Type Care Provider Facility Start: 01-29-2024 Telephone encounter Vitor Harp CNM [facility] Comment on above: Radiology [place] Start: 01-16-2024 ambulatory Isabelle Menon MD Work Phone: Gastroenterology Comment on above: EUS Start: 01-01-2024 End: 01-01-2024 ambulatory Ana Bolton [facility] Work Phone: Start: 01-01-2024 End: 01-01-2024 Departed Referred DO Ana Pachecomarilu Work Phone: [facility] Path [facility] Start: 12-28-2023 End: 12-28-2023 ambulatory ANALIA HOLLIDAY Facility:[facility] Start: 12-28-2023 End: 12-28-2023 Patient encounter procedure Dara Butler DO Work Phone: Gastroenterology Comment on above: Upper abdominal pain (Primary Dx); Dyspepsia and disorder of function of stomach; Dyspepsia Start: 12-27-2023 End: 12-27-2023 ambulatory DARA BUTLER JR Facility:[facility] Start: 12-27-2023 Non-patient / Non-visit DO Pipe ceediana Che [facility] Phone: [facility] Work Phone: Start: 12-22-2023 ambulatory Dara Butler DO Work Phone: Gastroenterology Comment on above: Pain Start: 12-13-2023 Refill Dara Butler DO Work Phone: [facility] Comment on above: Refill Request Start: 12-05-2023 End: 12-05-2023 ambulatory ANALIA HOLLIDAY Facility:[facility] Start: 12-05-2023 End: 12-05-2023 Patient encounter procedure Ariella Mccoy APRN.ANALYSIS MGR Work Phone: General Surgery Comment on above: S/P gastrointestinal surgery, follow-up exam (Primary Dx); S/P laparoscopic cholecystectomy Start: 11-29-2023 End: 11-29-2023 ambulatory [facility] Work Phone: Start: 11-29-2023 End: 11-29-2023 Patient encounter procedure [facility] Shayna Work Phone: Start: 11-21-2023 End: 11-21-2023 ambulatory SEEMA DAVIS Facility:[facility] Start: 11-15-2023 End: 11-16-2023 ambulatory VIKTORIA CAUSEY Facility:[facility] Start: 11-15-2023 Encounter for other preprocedural examination SEEMA [facility] Start: 11-15-2023 Non-patient / Non-visit [facility] Work Phone: Start: 11-15-2023 End: 11-15-2023 Admission to establishment [facility] [address] Other Phone: Pre Anesthesia Start: 11-15-2023 End: 11-15-2023 Patient encounter procedure [address] [address] Other Phone: Pre Anesthesia Comment on above: Pre-op examination ( Primary Dx); Palpitations; Organic anxiety syndrome Start: 11-15-2023 End: 11-15-2023 Preprocedural examination done [address] [address] Other Phone: [facility] Work Phone: Start: 11-15-2023 Telephone encounter Viktoria Causey PA-C Work Phone: Pre Anesthesia Comment on above: Pre-Op Exam Start: 11-07-2023 End: 11-07-2023 ambulatory ANALIA HOLLIDAY Facility:[facility] Start: 11-05-2023 Telephone encounter Sedrick justice MD Work Phone: Cardiology Comment on above: Patient Question (PV Cs and Frequent ED visits. ) Start: 10-30-2023 Telephone encounter Sedrick justice MD Work Phone: Cardiology Comment on above: Palpitations; ED pt update Start: 10-23-2023 Telephone encounter Seema cooley MD Work Phone: General Surgery Comment on above: Cardiac Clearance Start: 10-22-2023 End: 10-22-2023 ambulatory SEEMA DAVIS Facility:[facility] Start: 10-22-2023 End: 10-22-2023 Patient encounter procedure Sedrick Rushing MD Work Phone: Cardiology Comment on above: Palpitations (Primar y Dx); Other supraventricular tachycardia (HCC) Start: 10-19-2023 End: 10-19-2023 ambulatory ANALIA HOLLIDAY Facility:[facility] Start: 09-11-2023 Telephone encounter Isabelle chiu MD Work Phone: Gastroenterology Comment on above: Patient Update Start: 09-06-2023 Telephone encounter Isabelle chiu MD Work Phone: [facility] Provider Adult Start: 09-06-2023 [facility] Start: 09-06-2023 End: 09-06-2023 Subsequent hospital visit by physician Isabelle Menon MD Work Phone: [facility] Endoscopy - ENDO Comment on above: Chronic recurrent pa ncreatitis (HCC) [K86.1] Start: 07-05-2023 End: 07-05-2023 ambulatory ANALIA HOLLIDAY Facility:[facility] Start: 06-25-2023 Telephone encounter Large [facility]ops Procedure Rm 15 Radiology Comment on above: Scans Start: 06-11-2023 ambulatory Isabelle Menon MD Work Phone: Gastroenterology Comment on above: EUS Start: 06-06-2023 End: 06-06-2023 ambulatory ANALIA HOLLIDAY Facility:[facility] Start: 06-06-2023 End: 06-06-2023 Patient encounter procedure Isabelle Menon MD Work Phone: Gastroenterology Comment on above: RUQ pain (Primary Dx ); History of pancreatitis; Nausea; Diarrhea, unspecified type; History of Clostridium difficile infection Start: 06-01-2023 End: 06-01-2023 ambulatory Analia Miya Other [employer] Other Start: 06-01-2023 Telephone encounter Analia [facility] Start: 05-30-2023 End: 05-30-2023 Patient encounter procedure DNP Analia Miya Work Phone: [facility] Start: 05-30-2023 End: 05-30-2023 ambulatory DNP Analia Olverarobb Work Phone: [facility] Work Phone: Start: 05-24-2023 End: 05-24-2023 ambulatory Analia Miya Other [employer] Other Start: 05-24-2023 Encounter for genera l adult medical examination without abnormal findings Analia Holliday [facility] Start: 05-24-2023 Initial preventive medicine new pt age 18-39yrs Analia Holliday [facility] Start: 05-22-2023 End: 05-22-2023 ambulatory [facility] Facility:[facility] Start: 05-22-2023 End: 05-22-2023 Patient encounter procedure Dara Butler DO Work Phone: Gastgroenterology Comment on above: Chronic pancreatitis , unspecified pancreatitis type (HCC) (Primary Dx); Generalized abdominal pain; Irritable bowel syndrome with diarrhea; History of Clostridioides difficile colitis Start: 05-16-2023 End: 05-16-2023 ambulatory Ordering Provider Other [employer] Other Start: 05-16-2023 Telephone encounter Ordering Nichole sanchez [facility] Start: 05-03-2023 Telephone encounter Dara joshi DO Work Phone: Gastroenterology Comment on above: Results Start: 05-01-2023 End: 05-01-2023 ambulatory [facility] Facility:[facility] Start: 04-27-2023 End: 04-27-2023 [facility] Start: 04-25-2023 ambulatory Jose Luis Hernandez Facility:[facility] Start: 04-24-2023 End: 04-24-2023 ambulatory COLBY M Y Facility:[facility] Start: 04-14-2023 Telephone encounter Dara joshi DO Work Phone: Gastroenterology Comment on above: Results Start: 04-13-2023 ambulatory COLBY M Y Facility: [facility] Start: 04-12-2023 Telephone encounter Salma Moise ([place]) [facility] Comment on above: APPT REMINDER (APPT REMINDER CALL, LEFT MESSAGE REGARDING DIRECTIONS TO OFFICE AND # IN NEED TO CANCEL) Start: 03-29-2023 End: 03-29-2023 ambulatory COLBY M Y Facility:[facility] Start: 03-27-2023 End: 03-27-2023 ambulatory Silvano Dereje Other [employer] Other Start: 03-27-2023 Telephone encounter Silvano Reyez [facility] Start: 03-23-2023 End: 03-23-2023 ambulatory Silvano Scovanner Other [employer] Other Start: 03-23-2023 Telephone encounter Silvano Reyez [facility] Comment on above: Results Start: 03-22-2023 End: 03-22-2023 ambulatory Silvano Scovanner Other [employer] Other Start: 03-22-2023 Telephone encounter Nae poole MD Work Phone: Rheumatology Comment on above: Results Start: 03-21-2023 Telephone encounter Dara joshi DO Work Phone: Gastroenterology Comment on above: Results Start: 03-20-2023 End: 03-20-2023 ambulatory Silvano Reyez Other [employer] Other Start: 03-20-2023 Telephone encounter Silvano Castillo [facility] Start: 03-16-2023 End: 03-16-2023 ambulatory COLBY M Remington Facility:[facility] Start: 03-15-2023 ambulatory Dara Butler DO Work Phone: Gastgroenterology Comment on above: Pancreas Start: 02-28-2023 ambulatory DARA Ilene BUTLER Facility: [facility] Start: 02-06-2023 End: 02-06-2023 ambulatory COLBY AUGUSTIN Facility:[facility] Start: 02-06-2023 End: 02-06-2023 Patient encounter procedure Dara Butler DO Work Phone: Gastgroenterology Comment on above: Chronic pancreatitis , unspecified pancreatitis type (HCC) (Primary Dx); Generalized abdominal pain; Intestinal malabsorption, unspecified type Start: 01-09-2023 ambulatory Jose Luis Hernandez Facility:[facility] Start: 12-21-2022 ambulatory Nae Ibarra MD Work Phone: Rheumatology Comment on above: update Start: 12-01-2022 End: 12-02-[address] DOCTOR GENTILE Facility:[facility] Start: 11-22-2022 End: 11-22-2022 ambulatory Silvano Reyez Other [employer] Other Start: 11-22-2022 Office outpatient ne w 30 minutes Silvano Reyez [facility] Start: 11-08-2022 End: 11-08-2022 ambulatory Jaya Parikh Other [employer] Other Start: 11-08-2022 Telephone encounter Jaya POTTER [facility] Start: 11-04-2022 End: 11-04-2022 ambulatory JAYA PARIKH Facility:[facility]1 Start: 11-03-2022 End: 11-03-[address] DOCTOR GENTILE Facility:[facility]1 Start: 10-31-2022 End: 11-01-[address] DOCTOR GENTILE Facility:[facility]1 Start: 10-23-2022 End: 10-23-[address] DOCTOR GENTILE Facility:[facility]1 Start: 10-20-2022 End: 10-21-[address] DOCTOR GENTILE Facility:[facility]1 Start: 10-19-2022 End: 10-20-[address] KYREE NOGUERA . Facility:[facility]1 Start: 10-18-2022 End: 10-19-[address] KYREE NOGUERA . Facility:[facility]1 Start: 10-08-2022 End: 10-09-[address] KYREE NOGUERA . Facility:[facility]1 Start: 10-05-2022 End: 10-05-[address] KYREE NOGUERA . Facility:[facility]1 Start: 10-02-2022 End: 10-03-[address] KYREE NOGUERA . Facility:[facility]1 Start: 09-28-2022 End: 09-28-[address] DOCTOR GENTILE Facility:[facility]1 Start: 09-26-2022 End: 09-27-[address] KYREE NOGUERA . Facility:[facility]1 Start: 09-22-2022 End: 09-23-[address] KYREE NOGUERA . Facility:[facility]1 Start: 09-20-2022 End: 09-21-2022 ambulatory TERE AGUIAR [facility] Start: 09-12-2022 End: 09-13-[address] DOCTOR GENTILE Facility:[facility]1 Start: 09-11-2022 End: 09-11-2022 ambulatory KANDY [facility] Start: 08-30-2022 End: 08-31-[address] DOCTOR GENTILE Facility:[facility]1 Start: 08-30-2022 End: 08-30-2022 ambulatory MIOOUMOU [facility] Start: 08-24-2022 End: 08-24-[address] KYREE NOGUERA . Facility:[facility]1 Start: 08-22-2022 End: 08-23-[address] KYREE NOGUERA . Facility:[facility]1 Start: 08-22-2022 End: 08-22-[address] KYREE NOGUERA . Facility:[facility]1 Start: 08-21-2022 End: 08-22-[address] KYREE NOGUERA . Facility:[facility]1 Start: 08-15-2022 End: 08-16-2022 ambulatory TERE AGUIAR [facility] Start: 08-14-2022 End: 08-14-[address] REFUGIO HARRINGTON . Facility:[facility]1 Start: 08-02-2022 End: 08-02-2022 ambulatory OBIE NELSON [facility] Start: 07-28-2022 End: 07-28-2022 ambulatory Jaya Parikh Other [employer] Other Start: 07-28-2022 Telephone encounter Jaya P[facility] Start: 07-27-2022 End: 07-27-[address] KYREE NOGUERA . Facility:[facility]1 Start: 07-13-2022 End: 07-13-[address] KYREE NOGUERA . Facility:[facility]1 Start: 05-11-2022 End: 05-12-[address] DOCTOR GENTILE Facility:[facility]1 Start: 05-04-2022 End: 05-04-[address] DOCTOR GENTILE Facility:[facility]1 Start: 05-01-2022 End: 05-01-[address] DOCTOR GENTILE Facility:[facility]1 Start: 04-27-2022 End: 04-27-2022 ambulatory Jaya Parikh Other [employer] Other Start: 04-27-2022 Patient encounter procedure Jaya ELI[facility] Start: 04-17-2022 End: 04-18-[address] KYREE NOGUERA . Facility:[facility]1 Start: 03-17-2022 End: 03-17-[address] DOCTOR GENTILE Facility:[facility]1 Start: 03-15-2022 ambulatory PHANI PRESLEY Facility:[facility] Start: 03-15-2022 End: 03-15-2022 Office outpatient [facility] 60 minutes Phani Presley MD Work Phone: [facility] Gastrointestinal [facility] [place] Comment on above: Diarrhea, unspecifie d type (Primary Dx) Start: 02-25-2022 End: 02-25-2022 ambulatory COLBY HOY Facility:[facility]1 Start: 02-01-2022 End: 02-02-[address] DOCTOR GENTILE Facility:[facility]1 Start: 01-19-2022 End: 01-19-2022 ambulatory Jaya Parikh Other [employer] Other Start: 01-19-2022 Telephone encounter Jaya POTTER [facility] Start: 01-14-2022 End: 01-14-2022 ambulatory COLBY HOY Facility:[facility]1 Start: 12-27-2021 ambulatory REFERRED SELF Facility: [facility] Start: 10-27-2021 End: 10-27-2021 ambulatory Jaya Parikh Other [employer] Other Start: 10-27-2021 Telephone encounter Jaya POTTER [facility] Start: 10-17-2021 End: 10-17-2021 ambulatory Jaya Parikh Other [employer] Other Start: 10-17-2021 Telephone encounter Jaya POTTER [facility] Start: 10-07-2021 ambulatory PHANI SAKINA Facility:[facility] Start: 10-06-2021 End: 10-06-2021 ambulatory Jaya Parikh Other [employer] Other Start: 10-06-2021 Telephone encounter Jaya POTTER [facility] Start: 09-30-2021 End: 09-30-2021 ambulatory Jaya Parikh Other [employer] Other Start: 09-30-2021 Telephone encounter Jaya POTTER [facility] Start: 09-27-2021 End: 09-27-2021 ambulatory Jaya Parikh Other [employer] Other Start: 09-27-2021 [facility] visit new patient Jaya Parikh [facility] Start: 05-05-2021 Office outpatient vi sit 15 minutes Arlenejosue Negro [facility] Start: 12-02-2020 End: 12-02-2020 Subsequent hospital visit by physician [facility] Radiology Ct Scan Comment on above: Family history of is chemic heart disease and other diseases of the circulatory system [Z82.49] Procedures Date Procedure Procedure Detail Performing Clinician Start: 09-06-2023 Esophagoscp rig transoral hypopharynx crv satish Menon MD Work Phone: Start: 12-02-2020 Ct angiography head w/contrast/noncontrast Rickie Naqvi DO Work Phone: Start: 12-02-2020 Ct angiography neck w/contrast/noncontrast Rickie Naqvi DO Work Phone: History of cholecystectomy S/P laparoscopic cholecystectomy Ariella Mccoy SHIFT SUPERVISOR.ANALYSIS [facility] Work Phone: Plan of Treatment Date Care Activity Detail Author Start: 08-18-2024 End: 08-18-2024 Patient encounter procedure 08/18/2024 1:40 PM EST Office Visit Rheumatology [address] [place] [address] Nae Ibarra MD [address] [place] [address] for fatigue fu OV. Rheumatology Comment on above: for fatigue fu OV. Start: 05-07-2024 End: 05-07-2024 Patient encounter procedure 05/07/2024 11:45 AM EDT Office Visit Gastroenterology [address] [place] [address] [place] [address] [place] [address] F/U OV Gastroenterology Comment on above: F/U OV Start: 03-23-2024 Influenza vaccination [facility] Start: 03-14-2024 End: 03-14-2024 Patient encounter procedure 03/14/2024 10:00 AM EDT Office Visit Gastroenterology [address] [place] [address] Dara Butler Jr., DO [address] [place] [address] follow upo Gastroenterology Comment on above: follow upo Start: 02-11-2024 End: 02-11-2024 Patient encounter procedure 02/11/2024 9:30 AM EDT Appointment Radiology [address] [place] [address] : XR UPPER GI SINGLE CONTRAST Radiology Comment on above: : XR UPPER GI SINGLE CONTRAST Start: 02-01-2024 End: 02-01-2024 Patient encounter procedure 02/01/2024 3:00 PM EDT Office Visit Gastroenterology [address] [place] [address] Dara Butler Jr., DO [address] [place] [address] JN -SOONER APPT FOR FOLLOW UP Gastroenterology Comment on above: JN -SOONER APPT FOR FOLLOW UP Start: 01-30-2024 End: 01-30-2024 Patient encounter procedure 01/30/2024 8:30 AM EDT Appointment [facility] [address] [place] [address] Gastric Emptying Study Weight 115 / Patient not Diabetic / Order in EPIC // DX: Upper abdominal pain [R10.10] [facility] Comment on above: Gastric Emptying Study Weight 115 / Nancy ent not Diabetic / Order in EPIC // DX: Upper abdominal pain [R10.10] Start: 01-09-2024 End: 01-09-2024 Patient encounter procedure 01/09/2024 8:30 AM EDT Appointment [facility] [address] [place] [address] Weight 115 / Patient not Diabetic / Order in EPIC // DX: Upper abdominal pain [R10.10] [facility] Comment on above: Weight 115 / Patient not Diabetic / Orde r in EPIC // DX: Upper abdominal pain [R10.10] Start: 12-28-2023 End: 12-28-2023 Patient encounter procedure 12/28/2023 3:00 PM EDT Office Visit Gastroenterology [address] [place] [address] Dara Butler Jr., DO [address] [facility] [place] [place] [address] abdominal pain- add per [facility] Comment on above: abdominal pain- add per JN Start: 12-27-2023 End: 12-27-2023 ambulatory 12/27/2023 10:00 AM EDT Results Only [facility] [address] [place] [address] [place] [address] [facility] Start: 12-26-2023 End: 03-26-2024 Amylase [Enzymatic activity/volume] in Serum or Plasma AMYLASE Lab Routine Generalized abdominal pain History of acute pancreatitis Expected: 12/26/2023, Expires: 03/26/2024 [facility] Comment on above: Expected: 12/26/2023, Expires: Start: 12-26-2023 End: 03-26-2024 C reactive protein [Mass/volume] in Serum or Plasma C-REACTIVE PROTEIN Lab Routine Generalized abdominal pain History of acute pancreatitis Expected: 12/26/2023, Expires: 03/26/2024 [facility] Comment on above: Expected: 12/26/2023, Expires: Start: 12-26-2023 End: 03-26-2024 CBC W Auto Differential panel - Blood COMPLETE BLOOD COUNT AND DIFFERENTIAL Lab Routine Generalized abdominal pain History of acute pancreatitis Expected: 12/26/2023, Expires: 03/26/2024 [facility] Comment on above: Expected: 12/26/2023, Expires: Start: 12-26-2023 End: 03-26-2024 Comprehensive metabolic 2000 panel - Serum or Plasma COMPREHENSIVE METABOLIC PANEL Lab Routine Generalized abdominal pain History of acute pancreatitis Expected: 12/26/2023, Expires: 03/26/2024 [facility] Work Phone: Comment on above: Expected: 12/26/2023, Expires: Start: 12-26-2023 End: 03-26-2024 Erythrocyte sedimentation rate SEDIMENTATION RATE, WESTERGREN Lab Routine Generalized abdominal pain History of acute pancreatitis Expected: 12/26/2023, Expires: 03/26/2024 [facility] Comment on above: Expected: 12/26/2023, Expires: Start: 12-26-2023 End: 03-26-2024 Lipase [Enzymatic activity/volume] in Serum or Plasma LIPASE Lab Routine Generalized abdominal pain History of acute pancreatitis Expected: 12/26/2023, Expires: 03/26/2024 [facility] Comment on above: Expected: 12/26/2023, Expires: Start: 12-10-2023 End: 12-10-2023 Patient encounter procedure 12/10/2023 12:20 PM EDT Office Visit Rheumatology [address] [facility] [place] [address] Nae Ibarra MD [address] [facility] [place] [address] for fatigue fu OV. Rheumatology Comment on above: for fatigue fu OV. Start: 11-21-2023 End: 11-21-2023 Admission to same day surgery center 11/21/2023 3:15 PM EDT - 11/21/2023 5:45 PM EDT Surgery [facility] Operating Room [address] [place], [place] [id number] [place] [address] [place] [address] [id number] LAPAROSCOPIC CHOLECYSTECTOMY [facility] Room Comment on above: LAPAROSCOPIC CHOLECYSTECTOMY Start: 11-21-2023 End: 11-21-2023 Laparoscopy surg cholecystectomy LAPAROSCOPIC CHOLECYSTECTOMY Cholecystitis 11/21/2023 3:15 PM EDT [facility] Start: 11-21-2023 Subsequent hospital visit by physician 11/21/2023 3:15 PM EDT Hospital Encounter [facility] Operating Room [address] [place] [address] [place] [address] [place] [address] [id number] Cholecystitis [K81.9] [facility] Room Comment on above: Cholecystitis [K81.9] Start: 07-23-2023 Behavioral Health Screening Behavioral Health Screening [facility] Start: 07-23-2023 Depression Assessment Depression Assessment [facility] Start: 03-23-2023 Covid-19 Vaccine () Covid-19 Vaccine () [facility] Start: 03-23-2023 Influenza vaccination [facility] Start: 02-06-2023 End: 04-08-2023 Amylase [Enzymatic activity/volume] in Serum or Plasma AMYLASE BLD Lab Routine Generalized abdominal pain Chronic pancreatitis, unspecified pancreatitis type (HCC) Intestinal malabsorption, unspecified type Expected: 02/06/2023, Expires: 04/08/2023 [facility] Work Phone: Comment on above: Expected: 02/06/2023, Expires: 3 Start: 02-06-2023 End: 04-08-2023 CELIAC SCREEN WITH REFLEX CELIAC SCREEN WITH REFLEX Lab Routine Generalized abdominal pain Chronic pancreatitis, unspecified pancreatitis type (HCC) Intestinal malabsorption, unspecified type Expected: 02/06/2023, Expires: 04/08/2023 [facility] Work Phone: Comment on above: Expected: 02/06/2023, Expires: 3 Start: 02-06-2023 End: 04-08-2023 Comprehensive metabolic 2000 panel - Serum or Plasma COMP METABOLIC PANEL Lab Routine Generalized abdominal pain Chronic pancreatitis, unspecified pancreatitis type (HCC) Intestinal malabsorption, unspecified type Expected: 02/06/2023, Expires: 04/08/2023 [facility] Work Phone: Comment on above: Expected: 02/06/2023, Expires: 3 Start: 02-06-2023 End: 04-08-2023 IGG SUBCLASS 1,2,3,4 IGG SUBCLASS 1,2,3,4 Lab Routine Generalized abdominal pain Chronic pancreatitis, unspecified pancreatitis type (HCC) Intestinal malabsorption, unspecified type Expected: 02/06/2023, Expires: 04/08/2023 [facility] Work Phone: Comment on above: Expected: 02/06/2023, Expires: 3 Start: 02-06-2023 End: 04-08-2023 Lipase [Enzymatic activity/volume] in Serum or Plasma LIPASE BLD Lab Routine Generalized abdominal pain Chronic pancreatitis, unspecified pancreatitis type (HCC) Intestinal malabsorption, unspecified type Expected: 02/06/2023, Expires: 04/08/2023 [facility] Work Phone: Comment on above: Expected: 02/06/2023, Expires: 3 Start: 02-06-2023 End: 04-08-2023 Lipid 1996 panel - Serum or Plasma LIPID PANEL BASIC Lab Routine Generalized abdominal pain Chronic pancreatitis, unspecified pancreatitis type (HCC) Intestinal malabsorption, unspecified type Expected: 02/06/2023, Expires: 04/08/2023 [facility] Work Phone: Comment on above: Expected: 02/06/2023, Expires: 3 Start: 02-06-2023 End: 04-08-2023 Nuclear Ab [Presence] in Serum by Immunoassay PHANI BLOOD Lab Routine Generalized abdominal pain Chronic pancreatitis, unspecified pancreatitis type (HCC) Intestinal malabsorption, unspecified type Expected: 02/06/2023, Expires: 04/08/2023 [facility] Work Phone: Comment on above: Expected: 02/06/2023, Expires: 3 Start: 07-23-2022 DEPRESSION ASSESSMENT DEPRESSION ASSESSMENT [facility] Start: 07-20-2022 End: 07-20-2022 Patient encounter procedure 07/20/2022 Office Visit Gastroenterology Phani Presley MD [address] [place] [phone] [facility] Gastrointestinal [facility] [place] Start: 03-23-2022 Influenza vaccination INFLUENZA VACCINE (#1) [facility] Start: 03-15-2022 End: 03-15-2023 C DIFFICILE BY PCR (CLOSTRIDIUM DIFFICILE TOXIN) C DIFFICILE BY PCR (CLOSTRIDIUM DIFFICILE TOXIN) Microbiology Routine Diarrhea, unspecified type Expected: 03/15/2022, Expires: 03/15/2023 [facility] Comment on above: Expected: 03/15/2022, Expires: 3 Start: 03-15-2022 End: 03-15-2023 MOLECULAR ENTERIC PANEL, STOOL MOLECULAR ENTERIC PANEL, STOOL Fluids Routine Diarrhea, unspecified type Expected: 03/15/2022, Expires: 03/15/2023 [facility] Comment on above: Expected: 03/15/2022, Expires: 3 Start: 09-06-2021 COVID-19 VACCINE (3 - Booster for Pfizer series) COVID-19 VACCINE (3 - Booster for Pfizer series) [facility] Start: 06-01-2021 COVID-19 VACCINE (3 - Booster for Pfizer series) COVID-19 VACCINE (3 - Booster for Pfizer series) [facility] Start: 06-01-2021 COVID-19 VACCINE (3 - Pfizer series) COVID-19 VACCINE (3 - Pfizer series) [facility] Start: 02-07-2021 Urine microalbumin profile DTaP,Tdap,Td Vaccine (7 - Td or Tdap) [facility] Start: 11-18-2019 PAP TESTING PAP TESTING [facility] Start: 11-18-2019 Screening for malignant neoplasm of cervix [facility] Start: 2017 Third diphtheria, tetanus and acellular pertussis (DTaP) vaccination TDAP (ADULT) [facility] Start: 2017 Urine microalbumin profile [facility] Start: 2016 HIV SCREENING HIV SCREENING [facility] Start: 2016 HIV screening HIV Screening [facility] Start: 2016 Tetanus vaccination TETANUS [facility] Start: 2014 Meningococcal B Vaccine: Consider Based On Risk (1 of 2 - Patient Seeks Protection) Meningococcal B Vaccine: Consider Based On Risk (1 of 2 - Patient Seeks Protection) [facility] Start: 2014 MENINGOCOCCAL B: Consider based on risk (1 of 2 - Patient Seeks Protection) MENINGOCOCCAL B: Consider based on risk (1 of 2 - Patient Seeks Protection) [facility] Start: 2014 Screening for Chlamydia trachomatis CHLAMYDIA SCREEN [facility] Start: 2013 HIV screening HIV SCREENING DISCUSSION [facility] Start: 2012 PEDS TO ADULT TRANSITION ANNUAL ASSESSMENT PEDS TO ADULT TRANSITION ANNUAL ASSESSMENT [facility] Start: 08-15-2011 HPV Vaccine (3 - 2-dose series) HPV Vaccine (3 - 2-dose series) [facility] Start: 2010 PEDS TO ADULT TRANSITION INITIAL DISCUSSION PEDS TO ADULT TRANSITION INITIAL DISCUSSION [facility] Start: 2009 Vaccination for human papillomavirus HPV VACCINE ADOL (1 - 2-dose series) [facility] Start: 2008 MENINGOCOCCAL B: Consider based on risk (1 of 2 - Risk Bexsero 2-dose series) MENINGOCOCCAL B: Consider based on risk (1 of 2 - Risk Bexsero 2-dose series) [facility] Start: 11-18-2007 HPV VACCINE (1 - 2-dose series) HPV VACCINE (1 - 2-dose series) [facility] Start: 1998 GONORRHEA SCREEN GONORRHEA SCREEN [facility] Start: 1998 HEPATITIS B (1 of 3 - 3-dose series) HEPATITIS B (1 of 3 - 3-dose series) [facility] Start: 1998 Hepatitis B Vaccine (1 of 3 - 3-dose series) Hepatitis B Vaccine (1 of 3 - 3-dose series) [facility] Start: 1998 Hepatitis C antibody, confirmatory test HEPATITIS C VIRUS SCREENING [facility] End: 07-12-2024 Ct angio abd&plvis cntrst mtrl w/wo cntrst img CTA ABD/PEL W IVCON Radiology Routine Generalized abdominal pain RUQ pain Chronic recurrent pancreatitis (HCC) Diarrhea, unspecified type 1 Occurrences starting 06/13/2023 until 07/12/2024 [facility] Work Phone: Comment on above: 1 Occurrences starting 06/13/2023 until 07/12/2024 End: 10-21-2024 Echocardiography ECHO Cardiology Routine Other supraventricular tachycardia (HCC) Palpitations 1 Occurrences starting 10/22/2023 until 10/21/2024 [facility] Work Phone: Comment on above: 1 Occurrences starting 10/22/2023 until 10/21/2024 End: 04-14-2024 Mri abdomen w/o & w/contrast material MRI ABDOMEN WO/W IVCON Radiology Routine Chronic recurrent pancreatitis (HCC) 1 Occurrences starting 03/16/2023 until 04/14/2024 [facility] Work Phone: Comment on above: 1 Occurrences starting 03/16/2023 until 04/14/2024 End: 01-26-2025 NM Stomach Views for gastric emptying solid phase W radionuclide PO NM GASTRIC EMPTYING SOLID Radiology Routine Upper abdominal pain Dyspepsia and disorder of function of stomach Dyspepsia 1 Occurrences starting 12/28/2023 until 01/26/2025 [facility] Comment on above: 1 Occurrences starting 12/28/2023 until 01/26/2025 OUTSIDE VENDOR CARDI AC OUTPATIENT EXTENDED RHYTHM RECORDING (WITHOUT TELEMETRY) OUTSIDE VENDOR CARDIAC OUTPATIENT EXTENDED RHYTHM RECORDING (WITHOUT TELEMETRY) Holter Routine Other supraventricular tachycardia (HCC) Palpitations Ordered: 10/22/2023 [facility] Work Phone: Comment on above: Ordered: 10/22/2023 End: 01-26-2025 RF Gastrointestinal tract upper Views W barium contrast PO XR UPPER GI SINGLE CONTRAST Radiology Routine Upper abdominal pain Dyspepsia and disorder of function of stomach 1 Occurrences starting 12/28/2023 until 01/26/2025 [facility] Work Phone: Comment on above: 1 Occurrences starting 12/28/2023 until 01/26/2025 [facility] Payers Date Payer Category Payer Self-pay 2022 Unknown [id number] 2020 Unknown [id number] 2019 Unknown [id number] 2. [id number] 1998 Unknown [id number] 2.16.8 40.1.323214.3.579.2.647 1998 Unknown [id number] 2.16. 840.1.014362.3.579.2.594 1998 Unknown [id number] 2.16. 840.1.121913.3.579.2.594 1998 Unknown [id number] 2.16.84 0.1.321898.3.579.2.593 1998 Unknown [id number] 2.16.84 0.1.482126.3.579.2.593 1998 Unknown [id number] 2.16.84 0.1.338891.3.579.2.593 1998 Unknown [id number] 2.16.84 0.1.251119.3.579.2.593 1998 Unknown [id number] 2.16.84 0.1.563959.3.579.2.593 1998 Unknown [id number] 2.16.84 0.1.800634.3.579.2.593 1998 Unknown [id number] 2.16.84 0.1.410475.3.579.2.593 1998 Unknown [id number] 2.16.84 0.1.306194.3.579.2.593 1998 Unknown [id number] 2.16.84 0.1.035450.3.579.2.593 1998 Unknown [id number] 2.16.84 0.1.164681.3.579.2.593 1998 Unknown [id number] 2.16.84 0.1.250906.3.579.2.593 1998 Unknown [id number] 2.16.84 0.1.287633.3.579.2.593 1998 Unknown [id number] 2.16.84 0.1.210679.3.579.2.593 1998 Unknown [id number] 2.16.84 0.1.339985.3.579.2.593 1998 Unknown [id number] 2.16.84 0.1.515780.3.579.2.593 1998 Unknown [id number] 2.16.84 0.1.180187.3.579.2.593 1998 Unknown [id number] 2.16.84 0.1.724304.3.579.2.593 1998 Unknown [id number] 2.16.84 0.1.800518.3.579.2.593 1998 Unknown [id number] 2.16.84 0.1.669933.3.579.2.593 1998 Unknown [id number] 2.16.84 0.1.053437.3.579.2.593 1998 Unknown [id number] 2.16.84 0.1.006550.3.579.2.593 1998 Unknown [id number] 2.16.84 0.1.294814.3.579.2.593 1998 Unknown [id number] 2.16.84 0.1.948677.3.579.2.593 1998 Unknown [id number] 2.16.84 0.1.831557.3.579.2.593 1998 Unknown [id number] 2.16.84 0.1.001572.3.579.2.593 1998 Unknown [id number] 2.16.84 0.1.512424.3.579.2.593 1998 Unknown [id number] 2.16.84 0.1.197085.3.579.2.593 1998 Unknown [id number] 2.16.84 0.1.445640.3.579.2.593 1998 Unknown [id number] 2.16.84 0.1.934174.3.579.2.593 1998 Unknown [id number] 2.16.84 0.1.890563.3.579.2.593 1998 Unknown [id number] 2.16.84 0.1.528075.3.579.2.593 1998 Unknown [id number] 2.16.84 0.1.908488.3.579.2.593 Unknown [id number] 2.16.8 40.1.636701.3.579.2.531 Unknown [id number] 2.16.8 40.1.387235.3.579.2.531 Social History Date Type Detail Facility Unknown if ever smoked [employer] Other Start: 12-08-2022 End: 02-06-2023 Sex Assigned At [facility] Start: 03-15-2022 End: 11-15-2023 Tobacco smoking status NHIS Never smoked tobacco [facility] Start: 03-15-2022 End: 11-15-2023 Tobacco use and exposure Smokeless tobacco non-user [facility] Start: 03-15-2022 Alcohol intake Current drinker of alcohol (finding) [facility] Start: 03-15-2022 History SDOH Alcohol Comment social [facility] Start: 1998 Sex Assigned At Not on file [facility] Start: 12-08-2022 Tobacco smoking status NHIS Ex-smoker [facility] History of tobacco use Current smoker [facility] Start: 1998 Sex Assigned At Female [facility] Start: 12-08-2022 End: 02-06-2023 History of Social function [facility] Adult Depression Screening Assessment 1 [facility] Start: 12-02-2020 Gender identity Identifies as female gender (finding) [facility] Start: 12-02-2020 Sexual orientation Heterosexual (finding) [facility] Tobacco smoking stat us NHIS Tobacco smoking consumption unknown [facility] Start: 06-06-2023 End: 12-28-2023 Alcohol intake Ex-drinker (finding) [facility] Start: 11-15-2023 Alcohol Comment socially- rare [facility] Clinical Notes 12-02-2020 to 01-29-2024 Telephone Encounter - Vitor Harp CNMT - 01/29/2024 1:15 PM EDTTelephone Encounter - Vitor Harp CNMT - 01/29/2024 1:15 PM EDTPatient InstructionsDara Butler Jr., DO - 12/28/2023 3:00 PM EDT Note Date & Type Note Facility 01-29-2024 Telephone encounter Note SPOKE WITH PT TO CONFIRM APT TO AND EXPLAIN THE EXAM AND ANY PREP. [facility] 01-29-2024 Miscellaneous Notes SPOKE WITH PT TO CONFIRM APT TO AND EXPLAIN THE EXAM AND ANY PREP. documented in this encounter [facility] 12-28-2023 Instructions Dara Butler Jr., DO - 12/28/2023 3:15 PM EDT Check gastric emptying study Check Upper GI series Start amitriptyline Start pantoprazole Stop Carafate May use Levbid as needed documented in this encounter [facility] 12-28-2023 History of Present illness Narrative No chief complaint on file. HPI: Rosa Alonzo, 23 year old female, followup for upper abd pain and dyspepsia. She has undergone an extensive workup into etiology of her abd pain without clear etiology. She reports upper abd pain, radiating to back, occasional nausea. Around 10 yrs ago she had episode of pancreatitis. Since her pain has felt similar, workup was pursued. However, imaging and labs have been negative for pancreatitis including most recent EUS without evidence of pancreatitis. Cholecystectomy was performed given her ongoing symptoms which provided improvement for about a week but symptoms then recurred. She has failed several medications throughout including dicyclomine, Levbid, omeprazole, Carafate, Creon, Zenpep. Extensive imaging with MRI, CT scan, US, HIDA have been unremarkable except for possible suggestion of MALS which she is following up with a specialist. 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 Stool studies have been negative for c.diff recurrence. Last EGD and colonoscopy were two years ago. EUS done in August. Past GI workup 11/21/23 cholecystectomy was done with path as follows: Gallbladder, cholecystectomy: -Gallbladder with no diagnostic abnormality. 09/06/[address] Menon There was no sign of significant pathology in the main pancreatic duct. There was no evidence of significant pathology in the left lobe of the liver and in the right lobe of the liver. A polyp was found in the gallbladder body. 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 No specimens collected. 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 Menon 22 y/o female with chronic abd pain. Etiology is not entirely clear. She has a history of idiopathic pancreatitis but workup has not demonstrated acute or chronic pancreatitis. She is seeing pancreatic biliary specialist in the coming weeks for an opinion. C.Diff testing negative. IBS-D remains an issue, start amitriptyline. Consider referral to [facility] if symptoms fail to improve. Although the gallbladder workup is negative I suspect that she has gallbladder disease specially with her father had cholecystectomy at young age, 30 years old. Another diagnosis should be entertained is MALS. The exact etiology of her pancreatitis at age 14 is not clear. No evidence of pancreas divisum on MRCP done 03/2023. No evidence for gallstones or sludge.. Biliary tree is not dilated. IgG4 is normal. Will schedule the patient for EUS in the next month or so. 05/22/23 Last OV notes per Dr. Butler as follows Rosa Alonzo, 22 year old female, for followup. She continues to have chronic generalized abd pain with associated nausea and diarrhea. Pain is around 7 everyday but worsens and evaluated in ER. Workup has been nondiagnostic. Food tends to make symptoms worse. Around 10 yrs ago she had episode of pancreatitis without clear etiology. Since she reports a couple episodes. She feels this is etiology for her chronic abd pain. MRI, CT scan, US, HIDA, labs have failed to demonstrate chronic pancreatitis findings. Workup for autoimmune pancreatitis was negative. Triglycerides are normal. She denies EtOH use. No family history of pancreatitis. Around two years ago she had c.diff after course of antibiotics and required two fecal transplants. Stool was negative for c.diff in Mar and Apr. History of IBS-D, limited benefit with dicyclomine. Last EGD was 2 yrs ago, last colonoscopy was 8 months ago in [place]. Start amitriptyline Keep appt with Dr. Menon for pancreatic / biliary clinic 04/14/23 CT/CT abdomen pelvis w con 1. Ill-defined inflammatory changes in the pelvis centered around the rectum which appears to have moderate wall thickening. Findings are suspect for distal colitis, however, the differential also includes pelvic inflammatory disease. 2. No other potentially acute intra-abdominal abnormality demonstrated. 3. Prominent pelvic vasculature which could be reactive or physiologic versus pelvic congestion syndrome secondary to narrowing of the left renal vein as it passes between the SMA and aorta. 04/13/23 MRI ABDOMEN WO/W IVCON No MR findings of acute or chronic pancreatitis. No pancreatic divisum. 12/01/22 HIDA scan was done at [facility]: Normal study EF 69% US: 10/31/22: (care everywhere) Liver normal Gallbaldder appears normal with no stones or sludge. No gallbladder wall thickening CBD 1.[address] abd/pel w/IV cont: 10/18/22: (scanned): Liver: no enlargement, atrophy, or focal lesion Biliary: no dilation or calcification Pancreas: haziness and poorly defined margins of the head of the pancreas. No stones of duct dilation Bowel: no visible mass, obstruction, or bowel wall thickening. Normal appendix Breath test glucose: 09/20/22: (care everywhere) ; FINDINGS: The patient brushed teeth at 10:13 AM prior to baseline measurement. The baseline hydrogen concentration was 4 ppm. The patient finished substrate at 10:26 AM. The patient brushed teeth again at 10:27 AM. The start time was 10:29 AM with hydrogen concentration of 12 part per million (ppm) at start time. Fifteen minutes later, it was 12 ppm. 30 minutes later, hydrogen concentration was 9 ppm, 45 minutes later it was 5 ppm, 60 minutes later, it was 3 ppm. Colon FMT: 08/15/22: (care everywhere): Impression: Unremarkable colon examination. No ulceration, no pseudomembrane seen. Successful positioning of 140 g of stool donor mixed with 350 mL of normal saline. 08/02/[address] [facility] Gastroenterology Rosa Alonzo is a 21 y.o. female with PMHx of idiopathic pancreatitis, here with recurrent C. Diff infection. 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 Initially dx with C. Diff in 2019, s/p treatment with Vancomycin, then subsequent mild improvement without confirmation, however one year later she tested positive for C. Diff again (09/2021). Patient underwent colonoscopy (normal endo and microscopic exams), treatment with Fidaxomicin and subsequent FMT (even though at the time she had negative antigen test). Colonoscopy w/ FMT (12/29/2021): FINDIN. Unremarkable colon examination. No ulceration, no pseudomembrane seen. 2. Successful positioning of 100 g of stool donor mixed with 120 mL of normal saline. Latest Ref Rng 05/01/2023 Shigella spp./Enteroinvasive E.coli DNA Not Detected Not detected Campylobacter jejuni/coli DNA Not Detected Not detected Shiga toxin-producing gene(s) Not Detected Not detected Salmonella spp. DNA Not Detected Not detected Cryptosporidium Antigen by EIA Negative Negative for Cryptosporidium by EIA. Giardia Antigen by EIA Negative Negative for Giardia lamblia by EIA. C. difficile PCR Negative for C. difficile toxin by PCR Negative for C. difficile toxin by PCR Test Results Negative Negative for lactoferrin, which may indicate the absence of fecal white blood cells Latest Ref Rng 11/15/2023 12/27/2023 WBC 3.70 - 11.00 k/uL 5.57 5.17 RBC 3.90 - 5.20 m/uL 3.95 4.48 Hemoglobin 11.5 - 15.5 g/dL 12.6 14.1 Hematocrit 36.0 - 46.0 % 37.7 41.5 MCV 80.0 - 100.0 fL 95.4 92.6 MCH 26.0 - 34.0 pg 31.9 31.5 MCHC 30.5 - 36.0 g/dL 33.4 34.0 RDW-CV 11.5 - 15.0 % 11.6 11.6 Platelet Count 150 - 400 k/uL 201 179 MPV 9.0 - 12.7 fL 10.5 10.5 Neut% % 43.7 46.8 Abs Neut (ANC) 1.45 - 7.50 k/uL 2.43 2.42 Lymph% % 43.6 39.8 Abs Lymph 1.00 - 4.00 k/uL 2.43 2.06 Nye% % 8.4 8.1 Abs Nye <0.87 k/uL 0.47 0.42 Eosin% % 3.4 4.3 Abs Eosin <0.46 k/uL 0.19 0.22 Baso% % 0.7 0.8 Abs Baso <0.11 k/uL 0.04 0.04 Immature Gran % % 0.2 0.2 IMMATURE GRANS (ABS) <0.10 k/uL <0.03 <0.03 NRBC /100 WBC 0.0 0.0 Absolute nRBC <0.01 k/uL <0.01 <0.01 DTYPE Auto Auto Protein, Total 6.3 - 8.0 g/dL 6.9 7.2 Albumin 3.9 - 4.9 g/dL 4.4 4.6 Calcium 8.5 - 10.2 mg/dL 9.6 10.2 Bilirubin, Total 0.2 - 1.3 mg/dL 0.4 0.5 Alkaline Phosphatase 34 - 123 U/L 47 53 AST 13 - 35 U/L 18 14 ALT 7 - 38 U/L 8 9 Glucose 74 - 99 mg/dL 109 (H) 97 BUN 7 - 21 mg/dL 16 13 Creatinine 0.58 - 0.96 mg/dL 0.75 0.68 Sodium 136 - 144 mmol/L 138 137 Potassium 3.7 - 5.1 mmol/L 4.5 4.3 Chloride 98 - 107 mmol/L 103 103 CO2 22 - 30 mmol/L 24 28 Anion Gap 8 - 15 mmol/L 11 6 (L) eGFR >=60 mL/min/1.73m 114 124 CRP <0.9 mg/dL <0.3 Amylase 30 - 104 U/L 44 Lipase 16 - 61 U/L 22 WSR 0 - 20 mm/hr 12 PAST MEDICAL HISTORY Diagnosis Date Pancreatitis PAST SURGICAL HISTORY Procedure Laterality Date COLONOSCOPY EGD ENDOMETRIAL WASHINGS laproscopicaly LAPAROSCOPIC CHOLECYSTECTOMY 11/21/2023 Current Outpatient Medications on File Prior to Visit Medication Sig sucralfate (CARAFATE) 1 gram tablet Take 1 tablet by mouth three times a day. hyoscyamine SR (LEVBID) 0.375 mg 12 hr tablet Take 1 tablet by mouth two times a day. escitalopram oxalate (LEXAPRO) 10 mg tablet Take 5 mg by mouth once daily. ondansetron (ZOFRAN) 4 mg tablet Take 4 mg by mouth as needed. No current facility-administered medications on file prior to visit. Allergies: Metronidazole Mental Status Change, Diarrhea, GI Upset, Hives, Other: See Comments, Rash, Shortness of Breath, Unknown, Vomiting Review of Systems Constitutional: Negative for chills, fatigue and fever. HENT: Negative for hearing loss, nosebleeds, tinnitus and trouble swallowing. Eyes: Negative for visual disturbance. Respiratory: Negative for cough, shortness of breath and wheezing. Cardiovascular: Negative for chest pain and palpitations. Gastrointestinal: Positive for abdominal pain and nausea. Negative for abdominal distention, blood in stool, constipation, diarrhea and vomiting. Endocrine: Negative for polyphagia. Genitourinary: Negative for dysuria, frequency and hematuria. Musculoskeletal: Negative for arthralgias and joint swelling. Skin: Negative for pallor and rash. Neurological: Negative for dizziness, tremors, seizures, syncope and headaches. Hematological: Does not bruise/bleed easily. LMP 11/15/2023 (Exact Date) Physical Exam Constitutional: General: She is not in acute distress. HENT: Mouth/Throat: Pharynx: Oropharynx is clear. Eyes: Conjunctiva/sclera: Conjunctivae normal. Cardiovascular: Rate and Rhythm: Normal rate and regular rhythm. Pulmonary: Effort: Pulmonary effort is normal. Breath sounds: Normal breath sounds. Abdominal: General: Bowel sounds are normal. There is no distension. Palpations: Abdomen is soft. Tenderness: There is abdominal tenderness in the epigastric area. There is no guarding or rebound. Musculoskeletal: General: No swelling. Skin: General: Skin is warm and dry. Coloration: Skin is not jaundiced. Neurological: Mental Status: She is alert. Mental status is at baseline. ASSESSMENT/PLAN: 23 y/o female with ongoing chronic upper abd pain and dyspepsia. Etiology remains unclear. Extensive workup has been unremarkable and failed several medications. At this time will proceed with gastric emptying study and UGI series, start amitriptyline and pantoprazole. If negative and symptoms persist, evaluation by MALS specialist is appropriate. 1. Upper abdominal pain - ICD9: 789.09, ICD10: R10.10 (primary diagnosis) - XR UPPER GI SINGLE CONTRAST - NM GASTRIC EMPTYING SOLID 2. Dyspepsia and disorder of function of stomach - ICD9: 536.8, ICD10: K31.9, R10.13 - XR UPPER GI SINGLE CONTRAST - NM GASTRIC EMPTYING SOLID 3. Dyspepsia - ICD9: 536.8, ICD10: R10.13 - NM GASTRIC EMPTYING SOLID Dara Butler Jr. documented in this encounter [facility] 12-28-2023 Note HNO ID: [id number] Author: DARA BUTLER JR, DO Service: ? Author Type: Physician Type: Progress Notes Filed: 12/28/2023 15:30 Note Text: No chief complaint on file. HPI: Rosa Alonzo, 23 year old female, followup for upper abd pain and dyspepsia. She has undergone an extensive workup into etiology of her abd pain without clear etiology. She reports upper abd pain, radiating to back, occasional nausea. Around 10 yrs ago she had episode of pancreatitis. Since her pain has felt similar, workup was pursued. However, imaging and labs have been negative for pancreatitis including most recent EUS without evidence of pancreatitis. Cholecystectomy was performed given her ongoing symptoms which provided improvement for about a week but symptoms then recurred. She has failed several medications throughout including dicyclomine, Levbid, omeprazole, Carafate, Creon, Zenpep. Extensive imaging with MRI, CT scan, US, HIDA have beenunremarkable except for possible suggestion of MALS which she is following up with a specialist. 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 Stool studies have been negative for c.diff recurrence. Last EGD and colonoscopy were two years ago. EUS done in August. Past GI workup 11/21/23 cholecystectomy was done with path as follows: Gallbladder, cholecystectomy: -Gallbladder with no diagnostic abnormality. 09/06/[address] Menon There was no sign of significant pathology in the main pancreatic duct. There was no evidence of significant pathology in the left lobe of the liver and in the right lobe of the liver. A polyp was found in the gallbladder body. 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 No specimens collected. 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 Menon 22 y/o female with chronic abd pain. Etiology is not entirely clear. She has a history of idiopathic pancreatitis but workup has not demonstrated acute or chronic pancreatitis. She is seeing pancreatic biliary specialist in the coming weeks for an opinion. C.Diff testing negative. IBS-D remains an issue, start amitriptyline. Consider referral to [facility] if symptoms fail to improve. Although the gallbladder workup is negative I suspect that she has gallbladder disease specially with her father had cholecystectomy at young age, 30 years old. Another diagnosis should be entertained is MALS. The exact etiology of her pancreatitis at age 14 is not clear. No evidence of pancreas divisum on MRCP done 03/2023. No evidence for gallstones or sludge.. Biliary tree is not dilated. IgG4 is normal. Will schedule the patient for EUS in the next month or so. 05/22/23 Last OV notes per Dr. Butler as follows Rosa Roland Clinton, 22 year old female, for followup. She continues to have chronic generalized abd pain with associated nausea and diarrhea. Pain is around 7 everyday but worsens and evaluated in ER. Workup has been nondiagnostic. Food tends to make symptoms worse. Around 10 yrs ago she had episode of pancreatitis without clear etiology. Since she reports a couple episodes. She feels this is etiology for her chronic abd pain. MRI, CT scan, US, HIDA, labs have failed to demonstrate chronic pancreatitis findings. Workup for autoimmune pancreatitis was negative. Triglycerides are normal. She denies EtOH use. No family history of pancreatitis. Around two years ago she had c.diff after course of antibiotics and required two fecal transplants. Stool was negative for c.diff in Mar and Apr. History of IBS-D, limited benefit with dicyclomine. Last EGD was 2 yrs ago, last colonoscopy was 8 months ago in [place]. Start amitriptyline Keep appt with Dr. Menon for pancreatic / biliary clinic 04/14/23 CT/CT abdomen pelvis w con 1. Ill-defined inflammatory changes in the pelvis centered around the rectum which appears to have moderate wall thickening. Findings are suspect for distal colitis, however, the differential also includes pelvic inflammatory disease. 2. No other potentially acute intra-abdominal abnormality demonstrated. 3. Prominent pelvic vasculature which could be reactive or physiologic versus pelvic congestion syndrome secondary to narrowing of the left renal vein as it passes between the SMA and aorta. 04/13/23 MRI ABDOMEN WO/W IVCON No MR findings of acute or chronic pancreatitis. No pancreatic divisum. 12/01/22 HIDA scan was done at [facility]: Normal study EF 69% US: 10/31/22: (care everywhere) Liver normal Gallbaldder appears normal with no stones or sludge. No gallbladder wall thickening CBD 1.[address] abd/pel w/IV cont: 10/18/22: (scanned): Liver: no enlargement, atrophy, or focal lesion Biliary: no dilation or calcification Pancreas: haziness and p (more content not included)... [facility] 12-26-2023 Telephone encounter Note Please see attached message per pt. Ca I add her on at 3pm on Sunday? I sent a message to scheduling the other day when you said earlier appt but I'll reach out directly. Also, advised pt if she is having acute pancreatitis with severe abdominal pain she may need the ER. Please review and advise. Thank you Analia Estevez RN [facility] 12-26-2023 Miscellaneous Notes Please see attached message per pt. Ca I add her on at 3pm on Sunday? I sent a message to scheduling the other day when you said earlier appt but I'll reach out directly. Also, advised pt if she is having acute pancreatitis with severe abdominal pain she may need the ER. Please review and advise. Thank you Analia Estevez RN Maintain Levbid. Start Carafate. Ok to move up appt to December. Dara Butler Jr., DO Please call pt to set up an office visit in December, may use hold spot if needed. Thank you. Analia Estevez RN Dr. Butler, would you prefer to see pt sooner in December? She was started on Levbid recently with no real improvement and requesting sooner office visit? Wondering if she might benefit from seeing functional medicine? Please review and advise. Analia Estevez RN documented in this encounter [facility] 12-24-2023 Telephone encounter Note Maintain Levbid. Start Carafate. Ok to move up appt to December. Dara Butler Jr., DO Please call pt to set up an office visit in December, may use hold spot if needed. Thank you. Analia Estevez RN [facility] 12-24-[address] Butler, would you prefer to see pt sooner in December? She was started on Levbid recently with no real improvement and requesting sooner office visit? Wondering if she might benefit from seeing functional medicine? Please review and advise. Analia Estevez RN [facility] 12-05-2023 History of Present illness Narrative Images from the original note were not included. GENERAL SURGERY FOLLOW UP SUBJECTIVE: Rosa Alonzo presents for follow up of her laparoscopic cholecystectomy on 11/21/23. She tolerated the procedure well and was discharged home. Stomach virus started last Sunday, improved by Sunday. Stools are loose but no diarrhea since viral infection Surgeon: Ryan Pathology: FINAL DIAGNOSIS A. Gallbladder, cholecystectomy: -Gallbladder with no diagnostic abnormality. Patient complaints: None She denies abdominal pain, incisional pain, nausea, vomiting, diarrhea, fever, chills, jaundice , and dark urine She denies food intolerance. PHYSICAL EXAMINATION: BP 106/64 Pulse 90 Temp 36.7 C (98 F) (Temporal) Ht 162.6 cm (5' 4.02 ) Wt 50.8 kg (112 lb) LMP 11/15/2023 (Exact Date) SpO2 99% BMI 19.22 kg/m General Appearance: Well developed, No acute distress Patient does not appear icteric. Abdomen: Abdomen soft, non-distended, non-tender Incisions: Clean, dry and intact with no drainage, erythema, swelling, ecchymosis, or tenderness IMPRESSION / PLAN: S/p laparoscopic cholecystectomy - doing well from the surgical standpoint Post-op patient instructions were reviewed with the patient. Low fat diet encouraged. Activity: No lifting more than 10-15 lbs (weight of a milk jug) for the first 2-3 weeks after surgery. I have encouraged her to contact the office at any time with any questions or concerns that may arise. Follow up: KAREN Mccoy APRN.CNP documented in this encounter [facility] 12-05-2023 Note HNO ID: [id number] Author: ARIELLA MCCOY APRN.CNP Service: ? Author Type: Nurse Practitioner Type: Progress Notes Filed: 12/05/2023 14:23 Note Text: GENERAL SURGERY FOLLOW UP SUBJECTIVE: Rosa Alonzo presents for follow up of her laparoscopic cholecystectomy on 11/21/23. She tolerated the procedure well and was discharged home. Stomach virus started last Sunday, improved by Sunday. Stools are loose but no diarrhea since viral infection Surgeon: Ryan Pathology: FINAL DIAGNOSIS A. Gallbladder, cholecystectomy: -Gallbladder with no diagnostic abnormality. Patient complaints: None She denies abdominal pain, incisional pain, nausea, vomiting, diarrhea, fever, chills, jaundice , and dark urine She denies food intolerance. PHYSICAL EXAMINATION: BP 106/64 Pulse 90 Temp 36.7 ?C (98 ?F) (Temporal) Ht 162.6 cm (5' 4.02 ) Wt 50.8 kg (112 lb) LMP 11/15/2023 (Exact Date) SpO2 99% BMI 19.22 kg/m? General Appearance: Well developed, No acute distress Patient does not appear icteric. Abdomen: Abdomen soft, non-distended, non-tender Incisions: Clean, dry and intact with no drainage, erythema, swelling, ecchymosis, or tenderness IMPRESSION / PLAN: S/p laparoscopic cholecystectomy - doing well from the surgical standpoint Post-op patient instructions were reviewed with the patient. Low fat diet encouraged. Activity: No lifting more than 10-15 lbs (weight of a milk jug) for the first 2-3 weeks after surgery. I have encouraged her to contact the office at any time with any questions or concerns that may arise. Follow up: KAREN Mccoy APRN.ANALYSIS MGR [facility] 12-05-2023 Nurse Note What is the reason for your visit today? Post op 11/21/23 lap maricarmen Who is your referring physician? ER Are you having poor oral intake? NO Have you had unintentional weight loss of 15 lbs/7 Kg in the last 3-6 months? NO Bowels: were good, then ended up with stomach bug and got over it on Sunday but no bowel movement since Sunday Wound: clean & dry Temperature: No Drains: No [facility] 12-05-2023 Nurse Note What is the reason for your visit today? Post op 11/21/23 lap maricarmen Who is your referring physician? ER Are you having poor oral intake? NO Have you had unintentional weight loss of 15 lbs/7 Kg in the last 3-6 months? NO Bowels: were good, then ended up with stomach bug and got over it on Sunday but no bowel movement since Sunday Wound: clean & dry Temperature: No Drains: No documented in this encounter [facility] 11-21-2023 Note HNO ID: [id number] Author: ?, ?, ? Service: ? Author Type: ? Type: Plan of Care Filed: 11/26/2023 17:37 Note Text: PHARMACY BEDSIDE DELIVERY SERVICE Patient Name: Rosa Alonzo The marked outpatient medications were filled and picked up at [facility] Medication List START taking these medications oxyCODONE IR 5 mg immediate release tablet Commonly known as: ROXICODONE Take 1 tablet by mouth every 6 hours as needed for pain for up to 7 days. CONTINUE taking these medications dicyclomine 20 mg tablet Commonly known as: BENTYL LEXAPRO 10 mg tablet Generic drug: escitalopram oxalate ondansetron 4 mg tablet Commonly known as: ZOFRAN You might also be taking other medications not listed above. If you have questions about any of your other medications, talk to the person who prescribed them or your Primary Care Provider. 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, 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 Staffing Anesthesiologist: Moshe Krishnamurthy DO NURSERY RN: Marvin Marquis APRN.NURSERY RN Performed by: ROMAIN Indications and Patient Condition Indications for airway management: anesthesia Preoxygenated: yes anesthesia circuit Patient position: sniffing Method: asleep Difficult Mask: No Final Airway Details Final airway type: endotracheal airway Final Endotracheal Airway: ETT Cuffed: yes Successful intubation technique: direct laryngoscopy Endotracheal tube insertion site: oral Blade: Jean Claude Blade size: #4 ETT size (mm): 7.0 Measured from: lips Measurement (cm): 21 Placement verified by: chest auscultation and capnometry Cormack-Lehane Classification: grade I - full view of glottis Number of attempts at approach: 1 Airway not difficult Comments Atraumatic; pre-anesthetic condition of lips and teeth intact. SIGNATURE: Marvin Marquis APRN.CRNA PATIENT NAME: Rosa Alonzo DATE: November 21, 2023 TIME: 2:22 PM [facility]: [id number] [facility] 11-16-2023 Telephone encounter Note Images from the original note were not included. Sedrick Rushing MD You; Wilfredo Avila OCCA; Avw Card Nurse 9 hours ago (10:29 PM) AM HI Everyone, As stated previously she is optimized at the time that I saw her in the office. If something has changed and her symptoms have worsened or changed in any way then she would need to be seen prior to clearing her. However, if she remains the same as she had felt when she was seen in the office then she would be considered optimized and considered intermediate risk for the intermediate risk surgery. Hope this helps! Augustus Rushing MD [facility] 11-16-2023 Miscellaneous Notes Images from the original note were not included. Sedrick Rushing MD You; Wilfredo Avila OCCA; Avw Card Nurse 9 hours ago (10:29 PM) AM HI Everyone, As stated previously she is optimized at the time that I saw her in the office. If something has changed and her symptoms have worsened or changed in any way then she would need to be seen prior to clearing her. However, if she remains the same as she had felt when she was seen in the office then she would be considered optimized and considered intermediate risk for the intermediate risk surgery. Hope this helps! Augustus Rushing MD Plan: - Vitals today: BP of 102/62 and a HR of 40 - Not currently on any cardiac medications - Will order an echo and a Zio for now - Will say that for now none of the above tests should prohibit her going forward with her surgery - She is deemed intermediate risk for this intermediate risk surgery - No further testing is needed prior to the surgery - At the time of this is examination she is deemed optimized from a cardiac standpoint. Per his last OV Images from the original note were not included. Greetings Dr. Rushing , Your patient was seen for preanesthesia consult 11/15/2023. Rosa Alonzo is scheduled for LAPAROSCOPIC CHOLECYSTECTOMY with Dr. Seema Davis on 11/21/2023. Do you feel they are medically optimized and ok to proceed as scheduled? Event monitor preliminary reading in [employer] Cardiac [facility]patient Recording/Telemetry [ID [id number]] ECHO completed in [facility]. Of note she also has been to the ED 2 times for her palpitations since your visit, with c/o of palpations intermittently throughout the day. she denies associated SOB or dizziness. She reports her symptoms have not changed. Thank you, Viktoria Causey PA-C [facility]est[facility]ation [facility] documented in this encounter [facility] 11-15-2023 Telephone encounter Note Plan: - Vitals today: BP of 102/62 and a HR of 40 - Not currently on any cardiac medications - Will order an echo and a Zio for now - Will say that for now none of the above tests should prohibit her going forward with her surgery - She is deemed intermediate risk for this intermediate risk surgery - No further testing is needed prior to the surgery - At the time of this is examination she is deemed optimized from a cardiac standpoint. Per his last OV [facility] 11-15-2023 Telephone encounter Note Images from the original note were not included. Greetings Dr. Rushing , Your patient was seen for preanesthesia consult 11/15/2023. Rosa Alonzo is scheduled for LAPAROSCOPIC CHOLECYSTECTOMY with Dr. Seema Davis on 11/21/2023. Do you feel they are medically optimized and ok to proceed as scheduled? Event monitor preliminary reading in [employer] [facility] Cardiac Outpatient Recording/Telemetry [ID [id number]] ECHO completed in [facility]. Of note she also has been to the ED 2 times for her palpitations since your visit, with c/o of palpations intermittently throughout the day. she denies associated SOB or dizziness. She reports her symptoms have not changed. Thank you, Viktoria Causey PA-C Preanesthesia Consultation Clinic [facility] 11-15-2023 History and physical note HISTORY AND PHYSICAL EXAMINATION SERVICE DATE: 11/15/2023 SERVICE TIME: 2:43 PM PRIMARY CARE PHYSICIAN: Analia Holliday CNP REASON FOR VISIT: Rosa Alonzo is a 22 year old female who is scheduled for LAPAROSCOPIC CHOLECYSTECTOMY at the request of Dr. Seema Davis for consultation. My final recommendation will be communicated back to the requesting physician by way of shared medical record or letter. Assessment Patient has the following medical conditions which may affect elisha-operative course: 1. Pre-op examination surgery scheduled for 11/21/2023 - COMPLETE BLOOD COUNT AND DIFFERENTIAL; Future - COMPREHENSIVE METABOLIC PANEL; Future 2. Palpitations Follows with cardiology, Dr. Rushing, last OV 10/22/2023. Patient completed cardiac testing recommended. Denies any dizziness, syncope, CP, SOB. 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 ANESTHESIA FINDINGS: Intubation History: No history of difficult intubation Significant Anesthesia Considerations: None Airway Exam: General: Normal appearance Body mass index is 20.06 kg/m . Mallampati Score is CLASS I ULBT: Class I - Lower incisors can bite the upper lip above the marva line Neck: Normal appearance and function, Distance from hyoid to mentum during neck extension is at least 3 finger breaths Mouth: Normal tongue size and Mouth opening greater than 2 finger breaths Dentition: Intact and Caps/crowns Airway History: No history of difficult intubation METS: Walk a block or two on level ground (2.75 METs) Climb a flight of stairs or walk up a hill (5.50 METs) Patient denies any chest pain or undue shortness of breath with the above physical activity. STOP BANG Score: Criteria: None Score = 0 Prepared for surgery: This patient is optimally prepared for surgery pending LABS and Cardiac optimization . Telephone Encounter sent to Dr Rushing, regarding Cardiac Optimization . CONSULTS: The following consults have been initiated at this time: Cardiology- Cardiac Optimization regarding palpations and recent cardiac testing The Following Tests/Procedures Have Been Initiated: EKG not indicated per [facility] protocol - EKG 10/19/2023 without new s/sx Orders placed today -CBC+DIFF and CMP I recommended to be completed navdeep Planned Anesthetic: Per anesthesia choice The patient has the following: ACTIVE PROBLEM LIST Cervicalgia Chronic Pain of Left Knee Chronic Left Shoulder Pain Recurrent Infections Urticaria Chronic Fatigue Bilateral Arm Pain Chronic Bilateral Low Back Pain Without Sciatica Abnormal Findings On Imaging Test Photosensitivity Organic Anxiety Syndrome Palpitations Subjective CHIEF COMPLAINT: Cholecystitis HPI: Patient is a 22 year old female presenting to pre-anesthesia consultation. Patient has Cholecystitis and intermittent abd pain for 1.5 years. pain is worse with eating. denies dark tarry stools. denies liver disease. Recommended for above surgery. PAST MEDICAL HISTORY Diagnosis Date Pancreatitis PAST SURGICAL HISTORY Procedure Laterality Date COLONOSCOPY EGD ENDOMETRIAL WASHINGS laproscopicaly FAMILY HISTORY Problem Relation Age of Onset Stroke Mother Heart Father Prostate Cancer Father Colon Cancer No Family History SOCIAL HISTORY: Social History Tobacco Use Smoking status: Never Smokeless tobacco: Never Vaping Use Vaping Use: Never used Substance Use Topics Alcohol use: Not Currently Comment: socially- rare Drug use: Not Currently Types: Marijuana Comment: rare edible MEDICATIONS: Prior to Admission medications as of 11/15/23 8479 Medication Sig Last Dose Taking dicyclomine (BENTYL) 20 mg tablet Take 1 tablet by mouth q 8 HR. Taking Yes escitalopram oxalate (LEXAPRO) 10 mg tablet Take 5 mg by mouth once daily. Taking Yes ondansetron (ZOFRAN) 4 mg tablet Take 4 mg by mouth as needed. Taking Differently Yes No medication comments found. CURRENT ALLERGIES: ALLERGIES Allergen Reactions Metronidazole Mental Status Change, Diarrhea, GI Upset, Hives, Other: See Comments, Rash, Shortness of Breath, Unknown, Vomiting Covid Immunization Dates Overdue - Covid-19 Vaccine () Overdue since 03/23/2023 04/06/2021 Imm Admin: COVID-19 original vaccine, age 12+ yr, monovalent ([employer] - PURPLE TOP) 03/16/2021 Imm Admin: COVID-19 original vaccine, age 12+ yr, monovalent ([facility] - PURPLE TOP) REVIEW OF SYSTEMS: positive findings are BOLD PAIN ASSESSMENT: Pain Pain Level: 5 Pain Location: Back-Lower Description: Aching Duration Units: Months Frequency: Continuous Intervention/Comfort measure: Relaxation, Heat General: No weight loss, malaise or fevers. Neuro: No history of TIA's, stroke, PUBLIC STENOGRAPHER tumor, impaired sensorium, hemiplegia, paraplegia or quadraplegia. No neurological symptoms or problems. Respiratory: No history of current cough or dyspnea, or pneumonia in the past 6 weeks. No history of respiratory/pulmonary symptoms or problems. Cardiovascular: Palpitations (SVT) Negative for Recent CT, CAD, CHF, HTN Negative for chest pain, orthopnea, PND, dizziness, lightheadedness or syncope. Negative for heart murmur. Negative for h/o DVT/PE. Negative for LE edema. GI: See HPI : No history of dysuria, frequency or incontinence,, stones or chronic kidney disease Endocrine: No history of diabetes. Has not taken steroids within the past 30 days. No history of endocrinological symptoms or problems. Hematology: No history of bleeding or clotting disorder. Pt is not taking anti-coagulation or platelet medications. No history of hematological symptoms or problems. Oncology: No history of CA metastasis, chemo within 30 days, or radiotherapy within 90 days. Has not lost 10% of body wt in 6 months. No history of oncological symptoms or problems. Psych: Anxiety, Depression Musculoskeletal: Negative for joint pain or swelling, back pain or muscle pain. Skin: Negative for lesions, rash and itching. Objective PHYSICAL EXAM: VITALS: BP 110/67 Pulse 75 Temp (Src) 97.1 (Temporal) Resp 18 Ht 5' 4 (1.63m) Wt 116 lb 13.5 oz (53.0kg) SpO2 100% LMP 11/15/2023 BMI 20.05 kg/(m^2). General: Alert and oriented, No acute distress, Healthy appearance Skin: Normal color, no rash, no lesions. HEENT: EOM, pupils equal, round and reactive., No carotid bruits Cardiovascular: Normal S1 & S2, no rubs, murmurs or gallops. No JVD. Pulse regular. Lungs: Normal breath sounds, no wheezes or crackles. Abdomen: Soft, non-tender, no rigidity. Extremities: No deformity, no edema or tenderness, no joint swelling or clubbing. Neurological: Normal cognition and motor skills. Pulses: Carotid and radial pulses normal +2. Diagnostic tests reviewed for today's visit: Lab Value Units Date High Low HB No results within date range. HCT No results within date range. WBC No results within date range. PLT No results within date range. NA No results within date range. K No results within date range. GLUC No results within date range. BUN No results within date range. CREAT No results within date range. PTSEC No results within date range. INR No results within date range. APTT No results within date range. ALT No results within date range. AST No results within date range. TBILI No results within date range. TSH No results within date range. No results found for: HBA1C Most recent EKG Recent Results (from the past 8760 hour(s)) ECG COMPLETE Collection Time: 10/19/23 2:37 PM Result Value Ventricular Rate 67 Atrial Rate 67 P-R Interval 160 QRS Duration 94 QT Interval 402 QTC Calculation (Bazett) 424 Calculated P [place] 76 Calculated R [place] 37 Calculated T [place] 57 Impression NORMAL SINUS RHYTHM WITH SINUS ARRHYTHMIA POSSIBLE LEFT ATRIAL ENLARGEMENT RSR' PATTERN IN V1 SUGGESTS INCOMPLETE RIGHT BUNDLE BRANCH BLOCK BORDERLINE ECG NO PREVIOUS ECGS AVAILABLE Confirmed by JENNIFER SURESH MD ([id number]) on 10/22/2023 1:00:28 PM Most recent Echo Recent Results (from the past 22502 hour(s)) ECHO Collection Time: 11/07/23 1:59 PM Impression CONCLUSIONS: - Exam indication: Abnormal ECG - The left ventricle is normal in size. Left ventricular systolic function is normal. EF = 63 5% (2D 4-ch.) Indeterminate left ventricular diastolic dysfunction. - The right ventricle is normal in size. Right ventricular systolic function is normal. - The patient has not had a prior CC echocardiographic exam for comparison. * * * Final * * * Most recent event monitor 11/08/2023 preliminary reading Enrollment Dates: 10/22/2023-11/01/2023 IRHYTHM FINDINGS: Patient had a min HR of 44 bpm, max HR of 157 bpm, and avg HR of 81 bpm. Predominant underlying rhythm was Sinus Rhythm. Slight P wave morphology changes were noted. Isolated SVEs were rare (<1.0%), SVE Couplets were rare (<1.0%), and no SVE Triplets were present. Isolated VEs were frequent (6.9%, 83591), VE Couplets were rare (<1.0%, 21), and no VE Triplets were present. Ventricular Bigeminy and Trigeminy were present. Instructions Given to Patient: Instructions located in the after visit summary. Patient given verbal and written preop instructions and voices comprehension and compliance. SIGNATURE: Viktoria Causey PA-C PATIENT NAME: Rosa Alonzo DATE: 11/15/2023 TIME: 2:43 PM [facility] 11-15-2023 History and physical note HISTORY AND PHYSICAL EXAMINATION SERVICE DATE: 11/15/2023 SERVICE TIME: 2:43 PM PRIMARY CARE PHYSICIAN: Analia Holliday CNP REASON FOR VISIT: Rosa Alonzo is a 22 year old female who is scheduled for LAPAROSCOPIC CHOLECYSTECTOMY at the request of Dr. Seema Davis for consultation. My final recommendation will be communicated back to the requesting physician by way of shared medical record or letter. Assessment Patient has the following medical conditions which may affect elisha-operative course: 1. Pre-op examination surgery scheduled for 11/21/2023 - COMPLETE BLOOD COUNT AND DIFFERENTIAL; Future - COMPREHENSIVE METABOLIC PANEL; Future 2. Palpitations Follows with cardiology, Dr. Rsuhing, last OV 10/22/2023. Patient completed cardiac testing recommended. Denies any dizziness, syncope, CP, SOB. 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 ANESTHESIA FINDINGS: Intubation History: No history of difficult intubation Significant Anesthesia Considerations: None Airway Exam: General: Normal appearance Body mass index is 20.06 kg/m . Mallampati Score is CLASS I ULBT: Class I - Lower incisors can bite the upper lip above the marva line Neck: Normal appearance and function, Distance from hyoid to mentum during neck extension is at least 3 finger breaths Mouth: Normal tongue size and Mouth opening greater than 2 finger breaths Dentition: Intact and Caps/crowns Airway History: No history of difficult intubation METS: Walk a block or two on level ground (2.75 METs) Climb a flight of stairs or walk up a hill (5.50 METs) Patient denies any chest pain or undue shortness of breath with the above physical activity. STOP BANG Score: Criteria: None Score = 0 Prepared for surgery: This patient is optimally prepared for surgery pending LABS and Cardiac optimization . Telephone Encounter sent to Dr Rushing, regarding Cardiac Optimization . CONSULTS: The following consults have been initiated at this time: Cardiology- Cardiac Optimization regarding palpations and recent cardiac testing The Following Tests/Procedures Have Been Initiated: EKG not indicated per [facility] protocol - EKG 10/19/2023 without new s/sx Orders placed today -CBC+DIFF and CMP I recommended to be completed navdeep Planned Anesthetic: Per anesthesia choice The patient has the following: ACTIVE PROBLEM LIST Cervicalgia Chronic Pain of Left Knee Chronic Left Shoulder Pain Recurrent Infections Urticaria Chronic Fatigue Bilateral Arm Pain Chronic Bilateral Low Back Pain Without Sciatica Abnormal Findings On Imaging Test Photosensitivity Organic Anxiety Syndrome Palpitations Subjective CHIEF COMPLAINT: Cholecystitis HPI: Patient is a 22 year old female presenting to pre-anesthesia consultation. Patient has Cholecystitis and intermittent abd pain for 1.5 years. pain is worse with eating. denies dark tarry stools. denies liver disease. Recommended for above surgery. PAST MEDICAL HISTORY Diagnosis Date Pancreatitis PAST SURGICAL HISTORY Procedure Laterality Date COLONOSCOPY EGD ENDOMETRIAL WASHINGS laproscopicaly FAMILY HISTORY Problem Relation Age of Onset Stroke Mother Heart Father Prostate Cancer Father Colon Cancer No Family History SOCIAL HISTORY: Social History Tobacco Use Smoking status: Never Smokeless tobacco: Never Vaping Use Vaping Use: Never used Substance Use Topics Alcohol use: Not Currently Comment: socially- rare Drug use: Not Currently Types: Marijuana Comment: rare edible MEDICATIONS: Prior to Admission medications as of 11/15/23 1449 Medication Sig Last Dose Taking dicyclomine (BENTYL) 20 mg tablet Take 1 tablet by mouth q 8 HR. Taking Yes escitalopram oxalate (LEXAPRO) 10 mg tablet Take 5 mg by mouth once daily. Taking Yes ondansetron (ZOFRAN) 4 mg tablet Take 4 mg by mouth as needed. Taking Differently Yes No medication comments found. CURRENT ALLERGIES: ALLERGIES Allergen Reactions Metronidazole Mental Status Change, Diarrhea, GI Upset, Hives, Other: See Comments, Rash, Shortness of Breath, Unknown, Vomiting Covid Immunization Dates Overdue - Covid-19 Vaccine () Overdue since 03/23/2023 04/06/2021 Imm Admin: COVID-19 original vaccine, age 12+ yr, monovalent ([employer] - PURPLE TOP) 03/16/2021 Imm Admin: COVID-19 original vaccine, age 12+ yr, monovalent ([facility] - PURPLE TOP) REVIEW OF SYSTEMS: positive findings are BOLD PAIN ASSESSMENT: Pain Pain Level: 5 Pain Location: Back-Lower Description: Aching Duration Units: Months Frequency: Continuous Intervention/Comfort measure: Relaxation, Heat General: No weight loss, malaise or fevers. Neuro: No history of TIA's, stroke, PUBLIC STENOGRAPHER tumor, impaired sensorium, hemiplegia, paraplegia or quadraplegia. No neurological symptoms or problems. Respiratory: No history of current cough or dyspnea, or pneumonia in the past 6 weeks. No history of respiratory/pulmonary symptoms or problems. Cardiovascular: Palpitations (SVT) Negative for Recent CT, CAD, CHF, HTN Negative for chest pain, orthopnea, PND, dizziness, lightheadedness or syncope. Negative for heart murmur. Negative for h/o DVT/PE. Negative for LE edema. GI: See HPI : No history of dysuria, frequency or incontinence,, stones or chronic kidney disease Endocrine: No history of diabetes. Has not taken steroids within the past 30 days. No history of endocrinological symptoms or problems. Hematology: No history of bleeding or clotting disorder. Pt is not taking anti-coagulation or platelet medications. No history of hematological symptoms or problems. Oncology: No history of CA metastasis, chemo within 30 days, or radiotherapy within 90 days. Has not lost 10% of body wt in 6 months. No history of oncological symptoms or problems. Psych: Anxiety, Depression Musculoskeletal: Negative for joint pain or swelling, back pain or muscle pain. Skin: Negative for lesions, rash and itching. Objective PHYSICAL EXAM: VITALS: BP 110/67 Pulse 75 Temp (Src) 97.1 (Temporal) Resp 18 Ht 5' 4 (1.63m) Wt 116 lb 13.5 oz (53.0kg) SpO2 100% LMP 11/15/2023 BMI 20.05 kg/(m^2). General: Alert and oriented, No acute distress, Healthy appearance Skin: Normal color, no rash, no lesions. HEENT: EOM, pupils equal, round and reactive., No carotid bruits Cardiovascular: Normal S1 & S2, no rubs, murmurs or gallops. No JVD. Pulse regular. Lungs: Normal breath sounds, no wheezes or crackles. Abdomen: Soft, non-tender, no rigidity. Extremities: No deformity, no edema or tenderness, no joint swelling or clubbing. Neurological: Normal cognition and motor skills. Pulses: Carotid and radial pulses normal +2. Diagnostic tests reviewed for today's visit: Lab Value Units Date High Low HB No results within date range. HCT No results within date range. WBC No results within date range. PLT No results within date range. NA No results within date range. K No results within date range. GLUC No results within date range. BUN No results within date range. CREAT No results within date range. PTSEC No results within date range. INR No results within date range. APTT No results within date range. ALT No results within date range. AST No results within date range. TBILI No results within date range. TSH No results within date range. No results found for: HBA1C Most recent EKG Recent Results (from the past 8760 hour(s)) ECG COMPLETE Collection Time: 10/19/23 2:37 PM Result Value Ventricular Rate 67 Atrial Rate 67 P-R Interval 160 QRS Duration 94 QT Interval 402 QTC Calculation (Bazett) 424 Calculated P [place] 76 Calculated R [place] 37 Calculated T [place] 57 Impression NORMAL SINUS RHYTHM WITH SINUS ARRHYTHMIA POSSIBLE LEFT ATRIAL ENLARGEMENT RSR' PATTERN IN V1 SUGGESTS INCOMPLETE RIGHT BUNDLE BRANCH BLOCK BORDERLINE ECG NO PREVIOUS ECGS AVAILABLE Confirmed by JENNIFER SURESH MD ([id number]) on 10/22/2023 1:00:28 PM Most recent Echo Recent Results (from the past 47166 hour(s)) ECHO Collection Time: 11/07/23 1:59 PM Impression CONCLUSIONS: - Exam indication: Abnormal ECG - The left ventricle is normal in size. Left ventricular systolic function is normal. EF = 63 5% (2D 4-ch.) Indeterminate left ventricular diastolic dysfunction. - The right ventricle is normal in size. Right ventricular systolic function is normal. - The patient has not had a prior [facility] echocardiographic exam for comparison. * * * Final * * * Most recent event monitor 11/08/2023 preliminary reading Enrollment Dates: 10/22/2023-11/01/2023 IRHYTHM FINDINGS: Patient had a min HR of 44 bpm, max HR of 157 bpm, and avg HR of 81 bpm. Predominant underlying rhythm was Sinus Rhythm. Slight P wave morphology changes were noted. Isolated SVEs were rare (<1.0%), SVE Couplets were rare (<1.0%), and no SVE Triplets were present. Isolated VEs were frequent (6.9%, 27547), VE Couplets were rare (<1.0%, 21), and no VE Triplets were present. Ventricular Bigeminy and Trigeminy were present. Instructions Given to Patient: Instructions located in the after visit summary. Patient given verbal and written preop instructions and voices comprehension and compliance. SIGNATURE: Viktoria Causey PA-C PATIENT NAME: Rosa Alonzo DATE: 11/15/2023 TIME: 2:43 PM documented in this encounter [facility] 11-12-2023 Instructions Viktoria Causey PA-C - 11/12/2023 9:12 AM EDT PATIENT PREOPERATIVE INSTRUCTIONS Seema Davis MD has scheduled you for your procedure at this surgery center: [facility]: [phone] [id number] [id number]. Please check in on the 1st floor at registration desk 6. - Orders to be completed prior to surgery, PAT on 11/15/23 COMPLETE BLOOD COUNT AND DIFFERENTIAL COMPREHENSIVE METABOLIC PANEL Arrival Time for Surgery: - The Surgery Center or hospital where you are having surgery will call the afternoon before surgery (or Sunday for Sunday surgery) with a scheduled arrival time. - If you have not heard by 4 pm, please contact the surgery center above. Please be aware that emergency situations arise, which may delay or change your surgical time. If this happens, we will notify you as soon as possible and regret any inconvenience. Please read below carefully for your personalized instructions. Dietary Restrictions: - No solid food after midnight. - You may have 12 ounces of clear liquids (water, clear juices such as apple juice or gatorade, carbonated beverages, clear tea, black coffee, jello) until 2 hours before scheduled arrival at facility. - Do not drink any alcohol after midnight the night before your surgery. - No Milk/Dairy - No Pulp Juices Medications: - If you are prescribed inhalers for breathing, continue using them. Unless instructed differently below, stay on all of your medications until your surgery. Approved medications to take the morning of surgery with a sip of water: NONE Is Patient Diabetic:No If you start any new medications after today's visit, please contact the surgeon's office. Blood Thinning Medications: - Stop NSAIDS (Ibuprofen, Advil, Aleve, Motrin, Celebrex, Mobic, etc.) 7 days before surgery, as directed by your surgeon. - Stop Aspirin 7 days before surgery, as directed by your surgeon. - Stop Vitamin E, ALL multi-vitamins, herbals and dietary supplements 14 days before surgery. - You may take Tylenol (Acetaminophen) or any of your pain medications that do not contain aspirin or NSAIDS as needed. Important Reminders: - If you use CPAP/BIPAP and will be staying overnight, bring the machine with you to the surgery center. - Candy, mints, and tobacco products are NOT permitted the morning of surgery. - Hearing aids, dentures and glasses may be worn the morning of surgery. - NO jewelry, body piercings, makeup, hairpins or contacts are to be worn the day of surgery. If you develop symptoms such as a fever, cold, or flu, or have other changes to your health within TWO DAYS of scheduled surgery or the morning of surgery, please contact the surgery center above. Personal Belongings: -Please have photo ID and insurance cards. -If you do not have a copy of advance directives on file with us, please bring a copy with you on the day of surgery. - Leave ALL valuables and money at home or with family members. For Outpatient Procedures: - YOU MUST HAVE A RESPONSIBLE GEOLOGY TECHNICIAN TAKE YOU HOME. A WHIPPER OR MAINTENANCE CUSTODIAN CANNOT BE MADE A RESPONSIBLE GEOLOGY TECHNICIAN. - We recommend that a responsible person stays with you overnight to take care of you. - You cannot stay in a hotel alone after outpatient surgery. You will not be permitted to have your surgery, if you do not have someone to take care of you. If you already have an Advance Directive, please fax a copy to [phone] or email to for it to be added to your chart. If you do not have an Advance Directive, you can find the appropriate form and more information at [email or web address]. We recommend that you complete the Advance Directive form found on the website and bring it with you the day of your surgery. It can be witnessed and scanned into your chart that day. Viktoria Cauesy PA-C documented in this encounter [facility] 11-05-2023 Miscellaneous Notes Spoke with Ms Alonzo over the phone. For now, I will wait for the results of the Zio and the Echo and will reach back out. There is a chance that she may need to see EP, but I would like to see how frequently she is in [place]. documented in this encounter [facility] 11-01-2023 Miscellaneous Notes Called and spoke to patient per below and explained we cannot see zio results live, and that once it is mailed back it may take a week or two before we have results. Reassured her that ED physician wouldn't have let her leave if her EKG was abnormal/concerning and that she shouldn't focus on what the computer interpretation says if that is why she is worried. She denies CP. She states what concerns her is that during her visit to the ED she had an emesis which is strange for her. She said Dr. Rushing already cleared her for upcoming surgery, however she knows the zio caught whatever event she had. She mentions SOB as well as feeling dizzy/LH briefly. She hopes he will review her zio results prior to her surgery as it would give her more piece of mind. I told her to f/u with us on 11/15 to see if results are in if she hasn't already heard from us, as her surgery is on 11/20. Patient calling See message below Same, ongoing symptoms Staying hydrated Concerned Call CELL [phone] Leave Detailed messages The pt is calling. Please review the my chart message from today for an EKG attachment she sent from her ED visit last night. She went to [facility]. Are you able to revue her Zio patch from yesterday around 1147? It was at this time she was experiencing some SOB and irregular beats. Another time was at 1559. She does not have a follow up appt with you. Please advise further. You may call her back at the number listed in contacts and may leave a message. Thank you documented in this encounter [facility] 10-23-2023 Miscellaneous Notes Received form requesting cardiac evaluation for surgical clearance from [facility] General Surgery with Dr. Seema Davis. Surgery Date: 11-21-2023 Fax to [facility] General Surgery: [phone] Rushing to review. CHATO Ramirez documented in this encounter [facility] 10-23-[address] Sedrick Rushing's office for cardiac clearance at [phone]. Abnormal heart sounds with gallbladder consult on 10/19/23. Received confirmation. Sent to scanning documented in this encounter [facility] 10-22-2023 Nurse Note EVENT MONITOR DISPOSABLE PATCH INSTRUCTIONS Patient Name: Rosa Alonzo Clinic Number: [id number] Skin prepped and cleansed with alcohol Patch secured to prepped area Monitor Activated Serial #: [id number] Patient Instructed: Prescribed order timeframe Bathing guidelines Usage of event button and diary documentation Return of monitor at the end of prescribed order Call with problems [phone] or [phone]. [phone] Patient expresses a good understanding of instructions Azael Larson LPN documented in this encounter [facility] 10-22-2023 History of Present illness Narrative Images from the original note were not included. [facility] Department of Cardiovascular Medicine SECTION OF REGIONAL CARDIOLOGY OUTPATIENT VISIT DATE October 21, 2023 OUTPATIENT VISIT TYPE NEW CONSULTATION PRIMARY CARE PHYSICIAN: Analia Holliday [address] [place] [address] CHIEF COMPLAINT: Palpitations HISTORY OF PRESENT ILLNESS: Ms. Alonzo is a pleasant 22 year old female here for cardiovascular evaluation. She has no personal cardiac history. She is currently being worked up for a possible Laparoscopic cholecystectomy with cholangiogram. The following portions of the patient's history were reviewed and updated as appropriate, allergies, current medications, past medical, social, surgical, and family history and problem list. PAST MEDICAL HISTORY Diagnosis Date Pancreatitis PAST SURGICAL HISTORY Procedure Laterality Date COLONOSCOPY EGD FAMILY HISTORY Problem Relation Age of Onset Colon Cancer No Family History Social History Tobacco Use Smoking status: Former Smokeless tobacco: Never Vaping Use Vaping Use: Never used Substance Use Topics Alcohol use: Not Currently Drug use: Not Currently ALLERGIES Allergen Reactions Metronidazole Mental Status Change, Diarrhea, GI Upset, Hives, Other: See Comments, Rash, Shortness of Breath, Unknown, Vomiting CURRENT MEDICATIONS: spbsap-sbvhdkcu-fxsffho (CREON) 24,000-76,000 -120,000 unit delayed release capsule Take 2 capsules by mouth two times a day with meals. dicyclomine (BENTYL) 20 mg tablet Take 1 tablet by mouth q 8 HR. amitriptyline (ELAVIL) 25 mg tablet Take 1 tablet by mouth daily at bedtime. escitalopram oxalate (LEXAPRO) 10 mg tablet Take 10 mg by mouth once daily. ondansetron (ZOFRAN) 4 mg tablet Take 4 mg by mouth as needed. I have personally interviewed, confirmed and edited the above information if obtained by others. Physical Exam LMP 10/18/2023 (Exact Date) Gen: alert, no acute distress HEENT: normocephalic, atraumatic, no rinorrhea, no congestion, normal hearing, EOMI, no eye discharge Heart: no murmurs, S1/S2+, regular rate and rhythm Lungs: no wheezing, no rales, symmetric expansion, nonlabored Abdomen: soft, nontender, nondistended Musculoskeletal: no edema, nontender Neurological: no focal deficits, alert, oriented Psychatric: cooperative, appropriate Pertinent Diagnostics/Labs/Data reviewed (ECGs and echo listed personally reviewed today or prior) and include: Assessment & Plan Preoperative Cardiovascular Examination Palpitations Impression: This is a 22 yo female without any personal cardiac history. EKG 10/19/23: NSR with Sinus Arrhythmia and an iRBBB Plan: - Vitals today: BP of 102/62 and a HR of 40 - Not currently on any cardiac medications - Will order an echo and a Zio for now - Will say that for now none of the above tests should prohibit her going forward with her surgery - She is deemed intermediate risk for this intermediate risk surgery - No further testing is needed prior to the surgery - At the time of this is examination she is deemed optimized from a cardiac standpoint. Current Outpatient Medications on File Prior to Visit Medication Sig qoglby-ajyeijik-hkbfiro (CREON) 24,000-76,000 -120,000 unit delayed release capsule Take 2 capsules by mouth two times a day with meals. dicyclomine (BENTYL) 20 mg tablet Take 1 tablet by mouth q 8 HR. amitriptyline (ELAVIL) 25 mg tablet Take 1 tablet by mouth daily at bedtime. escitalopram oxalate (LEXAPRO) 10 mg tablet Take 10 mg by mouth once daily. ondansetron (ZOFRAN) 4 mg tablet Take 4 mg by mouth as needed. No current facility-administered medications on file prior to visit. Return in 3 months with communication in between if symptoms or changes occur. Thank you, CONTACT INFORMATION: Sedrick Rushing MD Cardiovascular Medicine Staff [facility] [address] [address] [place] [address] documented in this encounter [facility] 10-22-2023 Note HNO ID: [id number] Author: SEDRICK RUSHING MD Service: ? Author Type: Physician Type: Progress Notes Filed: 10/22/2023 15:17 Note Text: [facility] Department of Cardiovascular Medicine SECTION OF REGIONAL CARDIOLOGY OUTPATIENT VISIT DATE October 21, 2023 OUTPATIENT VISIT TYPE NEW CONSULTATION PRIMARY CARE PHYSICIAN: Analia Holliday [address] [place] [address] CHIEF COMPLAINT: Palpitations HISTORY OF PRESENT ILLNESS: Ms. Alonzo is a pleasant 22 year old female here for cardiovascular evaluation. She has no personal cardiac history. She is currently being worked up for a possible Laparoscopic cholecystectomy with cholangiogram. The following portions of the patient's history were reviewed and updated as appropriate, allergies, current medications, past medical, social, surgical, and family history and problem list. PAST MEDICAL HISTORY Diagnosis Date Pancreatitis PAST SURGICAL HISTORY Procedure Laterality Date COLONOSCOPY EGD FAMILY HISTORY Problem Relation Age of Onset Colon Cancer No Family History Social History Tobacco Use Smoking status: Former Smokeless tobacco: Never Vaping Use Vaping Use: Never used Substance Use Topics Alcohol use: Not Currently Drug use: Not Currently ALLERGIES Allergen Reactions Metronidazole Mental Status Change, Diarrhea, GI Upset, Hives, Other: See Comments, Rash, Shortness of Breath, Unknown, Vomiting CURRENT MEDICATIONS: cemqds-ldwgytig-oztzkti (CREON) 24,000-76,000 -120,000 unit delayed release capsule Take 2 capsules by mouth two times a day with meals. dicyclomine (BENTYL) 20 mg tablet Take 1 tablet by mouth q 8 HR. amitriptyline (ELAVIL) 25 mg tablet Take 1 tablet by mouth daily at bedtime. escitalopram oxalate (LEXAPRO) 10 mg tablet Take 10 mg by mouth once daily. ondansetron (ZOFRAN) 4 mg tablet Take 4 mg by mouth as needed. I have personally interviewed, confirmed and edited the above information if obtained by others. Physical Exam LMP 10/18/2023 (Exact Date) Gen: alert, no acute distress HEENT: normocephalic, atraumatic, no rinorrhea, no congestion, normal hearing, EOMI, no eye discharge Heart: no murmurs, S1/S2+, regular rate and rhythm Lungs: no wheezing, no rales, symmetric expansion, nonlabored Abdomen: soft, nontender, nondistended Musculoskeletal: no edema, nontender Neurological: no focal deficits, alert, oriented Psychatric: cooperative, appropriate Pertinent Diagnostics/Labs/Data reviewed (ECGs and echo listed personally reviewed today or prior) and include: Assessment AND Plan Preoperative Cardiovascular Examination Palpitations Impression: This is a 22 yo female without any personal cardiac history. EKG 10/19/23: NSR with Sinus Arrhythmia and an iRBBB Plan: - Vitals today: BP of 102/62 and a HR of 40 - Not currently on any cardiac medications - Will order an echo and a Zio for now - Will say that for now none of the above tests should prohibit her going forward with her surgery - She is deemed intermediate risk for this intermediate risk surgery - No further testing is needed prior to the surgery - At the time of this is examination she is deemed optimized from a cardiac standpoint. Current Outpatient Medications on File Prior to Visit Medication Sig ywamfe-qzkyuhhm-qkazxeh (CREON) 24,000-76,000 -120,000 unit delayed release capsule Take 2 capsules by mouth two times a day with meals. dicyclomine (BENTYL) 20 mg tablet Take 1 tablet by mouth q 8 HR. amitriptyline (ELAVIL) 25 mg tablet Take 1 tablet by mouth daily at bedtime. escitalopram oxalate (LEXAPRO) 10 mg tablet Take 10 mg by mouth once daily. ondansetron (ZOFRAN) 4 mg tablet Take 4 mg by mouth as needed. No current facility-administered medications on file prior to visit. Return in 3 months with communication in between if symptoms or changes occur. Thank you, CONTACT INFORMATION: Sedrick Rushing MD Cardiovascular Medicine Staff [facility] [id number] [place] [address]. [place] [address] [facility] 10-19-2023 Note HNO ID: [id number] Author: DAXA GRAY RN Service: ? Author Type: Registered Nurse Type: Progress Notes Filed: 10/19/2023 14:49 Note Text: FMLA/STD needed: unknown at this time AMBULATORY PATIENT EDUCATION NOTE PRE-OP TEACHING PROCEDURE: Laparoscopic cholecystectomy with cholangiogram READINESS TO LEARN COGNITIVE ABILITY: Alert and oriented MOTIVATION TO LEARN: Interested FAMILY SUPPORT: None - Unavailable/disinterested INSTRUCTION PROVIDED TO: Patient PATIENT LEARNS BEST BY: Multiple Methods FACTORS AFFECTING LEARNING: None PHYSICAL LIMITATIONS AFFECTING LEARNING: None LEARNING RESPONSE DIAGNOSIS: Acalculous cholecystitis METHOD OF INSTRUCTION: Individual instruction Written instruction - handouts Verbal instruction PATIENT / FAMILY RESPONSE: Verbalizes understanding of: PAIN MANAGEMENT-Effective strategies to manage pain in addition to pain medication PHYSICAL RESTRICTIONS-Physical restrictions and recommendations after discharge from the hospital POST-OPERATIVE INSTRUCTIONS-Correct actions to take to reduce postoperative complications PRE-OPERATIVE INSTRUCTIONS-Correct action to take to follow pre-operative instructions SYMPTOM MANAGEMENT-Correct actions to take to manage symptoms associated with his/her disease/illness WORSENING CONDITION-Signs and symptoms of a worsening condition that warrant a call to the physician WOUND CARE-Correct procedure to perform wound care DIET- Post op diet OTHER PRE-OP INSTRUCTIONS: FOLLOW-UP PLAN: Complete - No need for follow-up Patient instructed to call with any further issues Contact information given. SUPPLEMENTAL MATERIAL: - Pre Op Instructions Handout - PACC Brochure - Laparoscopic cholecystectomy Overview Handout - Post Op Instructions Handout - [place]ALTON Video Yes REFERRAL (RECOMMENDATION): None Electronically Signed By: Daxa Gray RN In Department: GENERAL SURGERY [facility] 10-19-2023 Note HNO ID: [id number] Author: DAXA GRAY RN Service: ? Author Type: Registered Nurse Type: Progress Notes Filed: 10/21/2023 21:18 Note Text: New patient consult for gallbladder. Referred by Dr. Sinan MD. General note: A 22 year old female seen by gastroenterology on 06/06/23. C/c: RU ABD pain radiates to back AND acute pancreatitis. 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 This measurement is within normal limits [facility] 10-19-2023 Note HNO ID: [id number] Author: SEEMA DAVIS MD Service: ? Author Type: Physician Type: Progress Notes Filed: 10/21/2023 21:18 Note Text: CC: RUQ pain HPI: This is a 22 year old female referred by Dr Menon for above; recommendations will be communicated via shared medical record or US Mail. Starting in 2019, she began having GI symptoms including nausea, diarrhea, etc. This evolved into right shoulder pain, right upper back pain, and epigastric and RUQ pain. These symptoms are worse with eating, especially heavy foods. US was negative. CT showed possibility of median arcuate ligament syndrome. Currently, she complains of RUQ pain radiating to right flank and right periscapular pain. EUS showed gallbladder polyp. She has had one episode of acute pancreatitis in 2016. PAST MEDICAL HISTORY Diagnosis Date Pancreatitis PAST SURGICAL HISTORY Procedure Laterality Date COLONOSCOPY EGD Current Outpatient Medications on File Prior to Visit Medication Sig dicyclomine (BENTYL) 20 mg tablet Take 1 tablet by mouth q 8 HR. escitalopram oxalate (LEXAPRO) 10 mg tablet Take 10 mg by mouth once daily. ondansetron (ZOFRAN) 4 mg tablet Take 4 mg by mouth as needed. yunofl-xomdylhn-lqiwych (CREON) 24,000-76,000 -120,000 unit delayed release capsule Take 2 capsules by mouth two times a day with meals. amitriptyline (ELAVIL) 25 mg tablet Take 1 tablet by mouth daily at bedtime. No current facility-administered medications on file prior to visit. 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 Lives with her . Family History Reviewed Including Cardiac Diseases, Psychiatric Diseases, AND Substance Abuse Problem: Colon Cancer Relation: No Family History Age of Onset: (Not Specified) REVIEW OF SYSTEMS PAIN ASSESSMENT: Negative for pain, history of chronic pain, or current treatment for a chronic pain condition. RESPIRATORY: Negative for cough, hemoptysis, wheezing, COPD, dyspnea or shortness of breath CARDIOVASCULAR: Occasional palpitations GI: See HPI : No history of dysuria, frequency or incontinence SKIN: Negative for lesions, rash, and itching NEURO: No history of headaches, syncope, paralysis, seizures or tremors Exam: NAD No scleral icterus Lungs: CTAB Heart: Rhythm seems to be bigeminy, with what appears to be two beats immediately adjacent. No murmurs. Abd: Soft, no masses. +RUQ tenderness. Extr: No edema Neuro: Nonfocal exam, normal gait CT images reviewed A/P: Symptoms most likely consistent with acalculous cholecystitis. Recommend lap cholecystectomy. Procedure, risks, benefits, alternatives discussed including risks of bleeding, infection, bowel or bile duct injury, conversion to open, postoperative bile leak. Postoperative diarrhea also discussed. She agrees to proceed. If symptoms not relieved with this procedure, then evaluation of median arcuate ligament syndrome could be considered, since current symptoms aren't consistent with this. Given possible arrhythmia, will obtain EKG and obtain cardiology consult prior to surgery. I spent a total of 35 minutes on the date of the service which included tggo-ou-fqvi patient care, completing clinical documentation, obtaining and/or reviewing separately obtained history, performing a medically appropriate examination, counseling and educating the patient/family/caregiver, and independently interpreting results (not separately reported). Seema Davis MD . [facility] 10-19-2023 Note Education ([facility]) ROSA ALONZO ([id number]) 2000 F Date Time Provider Department 10/19/23 DAXA GRAY GEMBHT Reason for Visit: Education Of Patient/family [904] Primary Visit Diagnosis:Acalculous cholecystitis [K81.9] Order(s):PT ED DIGESTIVE DISEASE [3695552] Order #: [id number]: 1 During your visit today, we recorded the following information about you: Allergies As of Date: 10/19/2023 Noted Allergy Reaction METRONIDAZOLE 09/07/2020 1 - Mental Status Change 6 - Diarrhea 8 - GI Upset 4 - Hives 14 - Other: See Comments 2 - Rash 12 - Shortness of Breath 16 - Unknown 11 - Vomiting Date Reviewed: 10/19/2023 Reviewed by: Beth Silva MA - Fully Assessed Prescriptions as of 10/19/2023 - akdprm-zgztqeos-gkxdwew (CREON) 24,000-76,000 -120,000 unit delayed release capsule Take 2 capsules by mouth two times a day with meals. - dicyclomine (BENTYL) 20 mg tablet Take 1 tablet by mouth q 8 HR. - amitriptyline (ELAVIL) 25 mg tablet Take 1 tablet by mouth daily at bedtime. - escitalopram oxalate (LEXAPRO) 10 mg tablet Take 10 mg by mouth once daily. - ondansetron (ZOFRAN) 4 mg tablet Take 4 mg by mouth as needed. Encounter Status:Closed by DAXA GRAY on 10/19/23 [facility] 09-11-2023 Miscellaneous Notes Please refer to [facility] dated 09/11/2023. Gisela Ponce RN Patient calling to see if she is to follow up with Dr. Menon. He did recommend surgeon consult for cholecystectomy. Patient is asking for referral Please adivse patient documented in this encounter [facility] 09-06-2023 Nurse Note 1345 Pt in Endo RR in satisfactory condition Pt denies c/o pain/discomfort 1345 Discharge instructions given to patient 1400 Dr. Menon at bedside speaking with patient and her mother All questions/concerns addressed 1345 Pt sitting up and drinking fluids without incident 1410 Left Endo in satisfactory condition Rickie Gu RN PATIENT EDUCATION TOPIC: PROCEDURE / SURGERY: Procedure/Surgery: EGD/EUS PATIENT NAME: Rosa Alonzo PATIENT LOCATION: Room/bed info not found READINESS TO LEARN COGNITIVE ABILITY: Alert and oriented MOTIVATION TO LEARN: Interested FAMILY SUPPORT: High - Very involved in pt care INSTRUCTION PROVIDED TO: Patient PATIENT LEARNS BEST BY: Individual Instruction FACTORS AFFECTING LEARNING: None PHYSICAL LIMITATIONS AFFECTING LEARNING: None LEARNING RESPONSE DIAGNOSIS: ADULT: PATIENT/FAMILY RESPONSE: Verbalizes understanding of: PRE-PROCEDURE INSTRUCTIONS-Correct action to take to follow pre-procedure instructions METHOD OF INSTRUCTION: Individual instruction FOLLOW-UP PLAN: Complete - No need for follow-up INSTRUCTIONAL AIDS USED: NA SUPPLEMENTAL MATERIAL PROVIDED TO PATIENT: None REFERRAL (RECOMMENDATION): None documented in this encounter [facility] 09-06-2023 History and physical note PROCEDURAL SEDATION HISTORY AND PHYSICAL EXAM SERVICE DATE: 09/06/2023 SERVICE TIME: 12:20 PM Subjective HPI: This is a 22 year old female who presents Endoscopic ultrasound with fine needle aspiration PAST ANESTHESIA HISTORY: No history of adverse event PAST MEDICAL HISTORY Diagnosis Date Pancreatitis PAST SURGICAL HISTORY Procedure Laterality Date COLONOSCOPY EGD Prior to Admission medications as of 09/06/23 1051 Medication Sig Last Dose Taking escitalopram oxalate (LEXAPRO) 10 mg tablet Take 10 mg by mouth once daily. 09/05/2023 at 1000 Yes londeo-thelgzco-lcjvchk (CREON) 24,000-76,000 -120,000 unit delayed release capsule Take 2 capsules by mouth two times a day with meals. dicyclomine (BENTYL) 20 mg tablet Take 1 tablet by mouth q 8 HR. Unknown amitriptyline (ELAVIL) 25 mg tablet Take 1 tablet by mouth daily at bedtime. ondansetron (ZOFRAN) 4 mg tablet Take 4 mg by mouth as needed. 09/04/2023 ALLERGIES Allergen Reactions Metronidazole Mental Status Change, Diarrhea, GI Upset, Hives, Other: See Comments, Rash, Shortness of Breath, Unknown, Vomiting Objective PHYSICAL EXAM: The remainder of the physical exam is noncontributory. AIRWAY: LUNGS: CARDIAC: , Assessment/Plan ASA Class: Active Problems: * No active hospital problems. * Resolved Problems: * No resolved hospital problems. * Medication and Non-Pharmacologic VTE Prophylaxis/Anticoagulants VTE Prophylaxis: VTE prophylaxis appropriate Provisional Diagnosis/Treatment Plan: Pancreatitis, RUQ abdominal pain. SIGNATURE: Isabelle Menon MD PATIENT NAME: Rosa Alonzo DATE: September 06, 2023 TIME: 12:20 PM documented in this encounter [facility] 07-05-2023 Note HNO ID: [id number] Author: Mckenzie Heck RT(R) Service: Radiology Author Type: Technologist Type: Progress Notes Filed: 07/05/2023 11:06 AM Note Text: Radiology Service Progress Note DATE OF SERVICE: July 05, 2023 TIME: 10:58 AM PATIENT IDENTITY VERIFICATION COMPLETED USING TWO (2) STANDARD IDENTIFIERS: Name and Date of confirmed by patient verbally and Name and Date of confirmed by identification band. FALL SCREENING: Has the patient had 2 falls in the last year or 1 fall with injury or currently using an Ambulatory Assistive Device (Walker, Cane, Wheelchair, Crutches, etc.)? No PATIENT GENDER DATA: Female. status: : No status: NO. PATIENT RELEVANT IMPLANT DATA REVIEWED: Not Applicable ALLERGIES: Reviewed and unchanged CONTRAST ALLERGY: NO. EXAM: CT -CONTRAST INDUCED NEPHROPATHY RISK FACTORS: Not applicable CREATININE: Creatinine Date Value Ref Range Status 03/16/2023 0.71 0.58 - 0.96 mg/dL Final 12/08/2022 0.61 0.58 - 0.96 mg/dL Final Estimated Glomerular Filtration Rate Date Value Ref Range Status 03/16/2023 122 >=60 mL/min/1.73m? Final Comment: Estimated Glomerular Filtration Rate (eGFR) is calculated using the 2020 CKD-EPI creatinine equation. This equation utilizes serum creatinine, sex, and age as parameters. The creatinine assay has traceable calibration to isotope dilution-mass spectrometry. Refer to KDIGO guidelines for clinical interpretation. In patients with unstable renal function, e.g. those with acute kidney injury, the eGFR may not accurately reflect actual GFR. P.O.C.T. RESULTS: POC done: Yes, See Lab Tab July 05, 2023 TREATMENT: N/A PERIPHERAL IV DATA: Ambulatory: A peripheral IV was started in the Right antecubital site with a Angio cath: 22 gauge. RADIOLOGY DEPARTMENT: CT; Exam(s) Completed: CTA Abdomen Pelvis SIGNATURE: Mckenzie Heck, RT(R) PATIENT NAME: Rosa Alonzo DATE: July 05, 2023 TIME: 10:58 AM [facility] 06-17-2023 Miscellaneous Notes To summarize the work-up I recommend (in this order): CTA EGD/colonoscopy by Dr. Butler EUS Surgical consult for cholecystectomy. Isabelle Menon MD Images from the original note were not included. Colon FMT: 08/15/22: (care everywhere) Impression: Unremarkable colon examination. No ulceration, no pseudomembrane seen. Successful positioning of 140 g of stool donor mixed with 350 mL of normal saline. Pt notified of results and recommendations and verbalized understanding. She will call and schedule CTA. Anabel, you can hold off scheduling EUS until Dr. Menon reviews CTA. He states pt may need EGD and colonoscopy and if so she can have these done with Dr. Butler. Pt is aware. Thank you, Gisela Ponce, RN Isabelle Menon MD You; Gall Adm Asst, Anabel II 25 minutes ago (3:59 PM) Gut malrotation was mentioned in one of her images report from [facility]. I will recommend CT-angiography to r/o gut malrotation and MALS. When did she have colonoscopy done? Anabel to schedule EGD+EUS (Linear) in 06/2023 defintely after CTA is completed. We do not need to ortiz and it is important to proceed with work-up in stepwise fashion. Isabelle Menon MD Dr. Menon, colonoscopies are already documented in her OV note. Gisela Ponce RN Images from the original note were not included. Isabelle Menon MD Hykes, Dara Odom Jr., DO; Gisela Ponce RN Dawn: Call patient and inform her that I reviewed her records and history in detail. Creon helping? Has she ever had an EGD in the past? Recommend: Linear EUS in 1 month (probably 07/2023). If all negative then we will refer the patient to a general surgeon for laparoscopy and cholecystectomy. Isabelle Menon MD Gisela: Refer to my note to you from the OV. I just closed it today. Arrange EUS. Isabelle Menon MD Dr. Menon, please see msg below and advise. Are you ordering an EUS? Thank you, Gisela Ponce RN documented in this encounter [facility] 06-06-2023 History and physical note Images from the original note were not included. REASON FOR VISIT: Recurrent acute pancreatitis HPI: Rosa Alonzo is a 22 year old female who presents on the request of Dr. Butler. She was seen by him 05/22/2023 as outlined below for abdominal pain and history of pancreatitis. The patient came to the office with her mother who works as in at [employer]. The problem started when she was age 14 with her first attack of acute pancreatitis. At that time the ultrasound was normal for gallstone. CT scan of the abdomen and pelvis showed acute pancreatitis. She stayed in the hospital for 5 days. She did well for several years after that. 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 The exact etiology was not clear. In the last few years she started complaining of occasional right upper quadrant pain that radiates to her back on the right. She described the pain to be dull and intermittent in nature and she has multiple episodes on a daily basis. Not necessarily related to eating. In the month of April 2023 she was evaluated in the emergency room for 3 times because of this pain. RUQ US negative for cholelithiasis or gallbladder sludge HIDA scan with CCK showed ejection fraction 69%. CT-scan abd/pelvis 04/14/2023 showed distal colitis and pelvic vasculature congestion. MRCP 04/13/2023 showed normal biliary tree, pancreas and gallbladder. No pancreas divisum. Fecal pancreatic elastase on 10/2022 was normal ===> 253. IgG4 is normal. She lost 15-20 pounds in the last 1/2 years. Bowel movements to 3 times daily yellow, floaty and for me. The patient provided information about her symptoms in which she describes specifically 4 6 specific symptoms: RUQ pain radiating to the back between her shoulder blades on the right. Extreme fatigue. Hives and rash, very itchy. Diarrhea and vomiting, she vomits up to 3 times monthly. She has history of endometriosis. She does not smoke cigarettes or drink alcohol. She is and has no children. Her father had cholecystectomy 830. No family history of pancreatitis or pancreatic cancer. Paternal grandmother had history of gallbladder cancer and at age 63. Previous work up includes: Last OV with Dr. Butler 05/22/2023 ASSESSMENT/PLAN: 22 y/o female with chronic abd pain. Etiology is not entirely clear. She has a history of idiopathic pancreatitis but workup has not demonstrated acute or chronic pancreatitis. She is seeing pancreatic biliary specialist in the coming weeks for an opinion. C.Diff testing negative. IBS-D remains an issue, start amitriptyline. Consider referral to [facility] if symptoms fail to improve. 1. Chronic pancreatitis, unspecified pancreatitis type (HCC) - ICD9: 577.1, ICD10: K86.1 (primary diagnosis) - appt scheduled with pancreatic biliary specialist 2. Generalized abdominal pain - ICD9: 789.07, ICD10: R10.84 - start amitriptyline 3. Irritable bowel syndrome with diarrhea - ICD9: 564.1, ICD10: K58.0 - start amitriptyline 4. History of Clostridioides difficile colitis - ICD9: V12.79, ICD10: Z86.19 - stable, negative stool studies 04/14/23 CT/CT abdomen pelvis w con 1. Ill-defined inflammatory changes in the pelvis centered around the rectum which appears to have moderate wall thickening. Findings are suspect for distal colitis, however, the differential also includes pelvic inflammatory disease. 2. No other potentially acute intra-abdominal abnormality demonstrated. 3. Prominent pelvic vasculature which could be reactive or physiologic versus pelvic congestion syndrome secondary to narrowing of the left renal vein as it passes between the SMA and aorta. 04/13/23 MRI ABDOMEN WO/W IVCON Motion degraded examination. Pancreas: Pancreas is normal in precontrast T1 signal intensity with no solid masses or main pancreatic duct dilatation. No pancreatic divisum. Biliary: No intrahepatic or extrahepatic biliary ductal dilation. No choledocholithiasis or stricture. Gallbladder: No cholelithiasis or gallbladder wall thickening. Liver: No mass. No MR findings of hepatic steatosis. No thrombus in the portal venous system (splenic vein, main portal vein, left and right anterior and right posterior portal vein branches). Spleen: No focal splenic lesions. Spleen is normal in size. Kidneys: Kidneys enhance symmetrically without ydroureteronephrosis or enhancing renal masses. 1.4 cm right renal cyst. Adrenal glands: Adrenal glands are normal. Lymph nodes: No lymphadenopathy by size criteria. Mesentery: No ascites. Osseous structures: No aggressive osseous lesions.\ IMPRESSION: No MR findings of acute or chronic pancreatitis. No pancreatic divisum. 12/01/22 HIDA scan was done at [facility]: Normal study EF 69% US: 10/31/22: (care everywhere) Liver normal Gallbaldder appears normal with no stones or sludge. No gallbladder wall thickening CBD 1.[address] abd/pel w/IV cont: 10/18/22: (scanned) Liver: no enlargement, atrophy, or focal lesion Biliary: no dilation or calcification Pancreas: haziness and poorly defined margins of the head of the pancreas. No stones of duct dilation Bowel: no visible mass, obstruction, or bowel wall thickening. Normal appendix Breath test glucose: 09/20/22: (care everywhere) FINDINGS: The patient brushed teeth at 10:13 AM prior to baseline measurement. The baseline hydrogen concentration was 4 ppm. The patient finished substrate at 10:26 AM. The patient brushed teeth again at 10:27 AM. The start time was 10:29 AM with hydrogen concentration of 12 part per million (ppm) at start time. Fifteen minutes later, it was 12 ppm. 30 minutes later, hydrogen concentration was 9 ppm, 45 minutes later it was 5 ppm, 60 minutes later, it was 3 ppm. Colon FMT: 08/15/22: (care everywhere) Impression: Unremarkable colon examination. No ulceration, no pseudomembrane seen. Successful positioning of 140 g of stool donor mixed with 350 mL of normal saline. 08/02/[address] [facility] Gastroenterology Rosa Alonzo is a 21 y.o. female with PMHx of idiopathic pancreatitis, here with recurrent C. Diff infection. 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 Initially dx with C. Diff in 2019, s/p treatment with Vancomycin, then subsequent mild improvement without confirmation, however one year later she tested positive for C. Diff again (09/2021). Patient underwent colonoscopy (normal endo and microscopic exams), treatment with Fidaxomicin and subsequent FMT (even though at the time she had negative antigen test). Colonoscopy w/ FMT (12/29/2021) FINDIN. Unremarkable colon examination. No ulceration, no pseudomembrane seen. 2. Successful positioning of 100 g of stool donor mixed with 120 mL of normal saline. 10/31/2022 Pancreatic Elastase, Fecal 253 ug Elast./g Normal >200 Component Latest Ref Rng & Units 12/08/2022 03/16/2023 WBC 3.70 - 11.00 k/uL 6.44 4.44 RBC 3.90 - 5.20 m/uL 4.35 4.48 Hemoglobin 11.5 - 15.5 g/dL 13.8 14.1 Hematocrit 36.0 - 46.0 % 40.9 41.7 MCV 80.0 - 100.0 fL 94.0 93.1 MCH 26.0 - 34.0 pg 31.7 31.5 MCHC 30.5 - 36.0 g/dL 33.7 33.8 RDW-CV 11.5 - 15.0 % 11.8 11.6 Platelet Count 150 - 400 k/uL 214 196 MPV 9.0 - 12.7 fL 11.3 10.4 Neut% % 35.8 Abs Neut (ANC) 1.45 - 7.50 k/uL 1.59 Lymph% % 48.9 Abs Lymph 1.00 - 4.00 k/uL 2.17 Nye% % 8.1 Abs Nye <0.87 k/uL 0.36 Eosin% % 5.6 Abs Eosin <0.46 k/uL 0.25 Baso% % 1.4 Abs Baso <0.11 k/uL 0.06 Immature Gran % % 0.2 IMMATURE GRANS (ABS) <0.10 k/uL <0.03 NRBC /100 WBC 0.0 Absolute nRBC <0.01 k/uL <0.01 <0.01 DTYPE Auto Protein, Total 6.3 - 8.0 g/dL 7.6 7.2 Albumin 3.9 - 4.9 g/dL 4.8 4.9 Calcium 8.5 - 10.2 mg/dL 9.6 9.8 Bilirubin, Total 0.2 - 1.3 mg/dL 0.3 0.4 Alkaline Phosphatase 34 - 123 U/L 50 55 AST 13 - 35 U/L 23 16 ALT 7 - 38 U/L 14 10 Glucose 74 - 99 mg/dL 83 102 (H) BUN 7 - 21 mg/dL 15 10 Creatinine 0.58 - 0.96 mg/dL 0.61 0.71 Sodium 136 - 144 mmol/L 135 (L) 142 Potassium 3.7 - 5.1 mmol/L 4.5 4.4 Chloride 97 - 105 mmol/L 101 105 CO2 22 - 30 mmol/L 22 26 Anion Gap 9 - 18 mmol/L 12 11 eGFR >=60 mL/min/1.73m 128 122 Cholesterol, Total <200 mg/dL 202 (H) Triglyceride <150 mg/dL 56 HDL Cholesterol >39 mg/dL 63 Non HDL Cholesterol <130 mg/dL 139 (H) Fasting Time hrs 12 VLDL Cholesterol <30 mg/dL 11 TC:HDL Ratio <5.10 3.21 LDL Cholesterol <100 mg/dL 128 (H) LDL:HDL Ratio <2.54 2.03 TB Nil <=8.00 IU/mL 0.04 TB1 Ag minus Nil <0.35 IU/mL 0.27 TB2 Ag minus Nil <0.35 IU/mL 0.23 TB Result Negative Mitogen minus Nil >=0.50 IU/mL >9.96 TB Interpretation Infection with M. tuberculosis complex is unlikely. If latent tuberculosis infection is highly suspected, a negative result does not rule out the infection. Specimens from immunocompromised patients and those <5 years of age may show false negative results. In case of a contact investigation, please repeat 8-12 weeks after a known exposure. Transglutaminase IgA Abs <4 U/mL <2 Transglutaminase IgA Abs Interpretation Negative Negative Interpretation (Celiac Screen) No serological evidence of celiac disease, however, if celiac disease is clinically suspected and patient is not on gluten-free diet, histological diagnosis may be considered. HLA testing may help with risk assessment. Gliadin Ab, IgA <20 Units 3 Gliad Deamidated IgA Qual Negative, Test not Indicated Negative IgG Subclass 1 382.4 - 928.6 mg/dL 632.6 IgG Subclass 2 241.8 - 700.3 mg/dL 334.9 IgG Subclass 3 21.8 - 176.1 mg/dL 32.5 IgG Subclass 4 3.9 - 86.4 mg/dL 43.3 CCP Antibody IgG Qualitative Negative Negative CCP Antibody, IgG <20 Units <15 Hep B Surface Ab, Qual Positive Negative (A) Hep B Surf Ab Quant >=12.00 mIU/mL <8.00 (L) Rheumatoid Factor <16 IU/mL <10 PHANI Negative Negative WSR 0 - 20 mm/hr 2 2 CRP <0.9 mg/dL <0.3 <0.3 Vitamin D 25 Hydroxy 31.0 - 80.0 ng/mL 24.5 (L) 32.5 Vitamin B12 232 - 1,245 pg/mL 594 Uric Acid 2.5 - 6.6 mg/dL 3.5 Hep C Antibody IA Negative Negative Hep B Surface Ag Negative Negative Hep B Core Ab, Total Negative Negative Amylase 30 - 104 U/L 43 PHANI Scr Qual Negative Negative Lipase 16 - 61 U/L 20 IgA 70 - 400 mg/dL 174 ALLERGIES Allergen Reactions Metronidazole Mental Status Change, Diarrhea, GI Upset, Hives, Other: See Comments, Rash, Shortness of Breath, Unknown, Vomiting PAST MEDICAL HISTORY Diagnosis Date Pancreatitis PAST SURGICAL HISTORY Procedure Laterality Date COLONOSCOPY EGD FAMILY HISTORY Problem Relation Age of Onset Colon Cancer No Family History Social History Tobacco Use Smoking status: Former Smokeless tobacco: Never Vaping Use Vaping Use: Never used Substance Use Topics Alcohol use: Not Currently Drug use: Not Currently Current Outpatient Medications Medication Sig dicyclomine (BENTYL) 20 mg tablet Take 1 tablet by mouth q 8 HR. amitriptyline (ELAVIL) 25 mg tablet Take 1 tablet by mouth daily at bedtime. escitalopram oxalate (LEXAPRO) 10 mg tablet Take 10 mg by mouth once daily. ondansetron (ZOFRAN) 4 mg tablet Take 4 mg by mouth as needed. No current facility-administered medications for this visit. REVIEW OF SYSTEMS: PAIN ASSESSMENT: Negative for pain, history of chronic pain, or current treatment for a chronic pain condition. GENERAL: Weight loss HEENT: Negative for frequent or significant headaches, No changes in hearing or vision, no nose bleeds or other nasal problems NECK: Negative for lumps, goiter, pain and significant neck swelling RESPIRATORY: Negative for cough, hemoptysis, wheezing, COPD, dyspnea or shortness of breath CARDIOVASCULAR: Negative for chest pain, leg swelling, hypertension, CHF or palpitations GI: RUQ pain radiating to back, N/V : No history of dysuria, frequency or incontinence MUSCULOSKELETAL: Negative for joint pain or swelling, back pain or muscle pain SKIN: Negative for lesions, rash, and itching PSYCH: Negative for sleep disturbance, mood disorder and recent psychosocial stressors HEMATOLOGY/LYMPHOLOGY: Negative for prolonged bleeding, bruising easily or swollen nodes ENDOCRINE: Negative for cold or heat intolerance, polyuria, polydipsia and goiter NEURO: No history of headaches, syncope, paralysis, seizures or tremors PHYSICAL EXAMINATION: BP 104/71 Pulse 87 Wt 113 lb (51.3kg) LMP 01/13/2023 General appearance: Well appearing, alert, in no acute distress, well-hydrated, well nourished. Skin: Skin color, texture, turgor normal, no suspicious rashes or lesions Head: Normocephalic, no masses, lesions, tenderness or abnormalities Eyes: Anicteric sclera. Pupils are equally round and reactive to light. Extraocular movements are intact. Nose/Sinuses: Nares normal, septum midline, mucosa normal, no drainage or sinus tenderness Oropharynx: Lips, mucosa, and tongue normal, teeth and gums normal, oropharynx normal Neck: Supple, no adenopathy; thyroid symmetric, normal size, no bruits Lungs: Lungs clear to auscultation. No wheezing, rhonchi, rales Heart: RRR without murmur, gallop, or rubs. No ectopy Abdomen: Normal abdominal exam, Abdomen soft, non-tender. Bowel sounds normal. No masses, organomegaly Extremities: No deformities, edema, skin discoloration, clubbing or cyanosis. Good capillary refill. Musculoskeletal: No joint swelling, deformity, or tenderness Peripheral pulses: Normal Neuro: Gait normal. ASSESSMENT/PLAN: 1. RUQ pain - ICD9: 789.01, ICD10: R10.11 (primary diagnosis) Although the gallbladder workup is negative I suspect that she has gallbladder disease specially with her father had cholecystectomy at young age, 30 years old. Another diagnosis should be entertained is MALS. 2. History of pancreatitis - ICD9: V12.79, ICD10: Z87.19 The exact etiology of her pancreatitis at age 14 is not clear. No evidence of pancreas divisum on MRCP done 03/2023. No evidence for gallstones or sludge.. Biliary tree is not dilated. IgG4 is normal. Will schedule the patient for EUS in the next month or so. 3. Nausea - ICD9: 787.02, ICD10: R11.0 Will check the patient had EGD or colonoscopy in the past and if not I will advised to schedule accordingly with Dr. Monsalve. 4. Diarrhea, unspecified type - ICD9: 787.91, ICD10: R19.7 Fecal pancreatic elastase 253, normal. However she describes her bowel movement to float and being foamy. I will prescribe Creon-24 as a trial for 1 month and monitor clinical response. 5. 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 Isabelle Menon MD, FACP documented in this encounter [facility] 06-01-2023 Evaluation note Encounter Date Diagnosis Assessment Notes May, Vitamin D insufficiency (ICD-10 - E55.9) [employer] Other 11-02-2023 Evaluation note* Encounter Date Diagnosis Assessment Notes Treatment Notes Treatment Clinical Notes May, Well adult exam (ICD-10 - Z00.00) Routine lab work ordered. She will follow up with eye doctor due to some floaters that she is having. Follow routinely with dentist and [facility]. Specialty notes reviewed as received. Patient is advised to work on healthy diet choices and appropriate servings, weight control, regular exercise as directed, reduced fat intake, and salt avoidance. Patient voiced understanding of this and agrees to this plan. May, Other chronic pancreatitis (ICD-10 - K86.1) She is following with Dr. Butler and Dr. Menon for this at the . She will continue to do so. Specialty notes reviewed as received. May, Irritable bowel syndrome with diarrhea (ICD-10 - K58.0) She is following with Dr. Butler and Dr. Menon for this at the . She will continue to do so. Specialty notes reviewed as received. May, LOCO (generalized anxiety disorder) (ICD-10 - F41.1) No suicidal or homicidal ideations. Stable with Lexapro 10 mg daily. Will continue this. [employer] Other 10-31-2023 Instructions* Patient Instructions* Dara Btuler Jr., DO - 05/22/2023 11:39 AM EDT Start amitriptyline Keep appt with Dr. Menon for pancreatic / biliary [facility] of Present illness Narrative* Dara Butler Jr., DO - 05/22/2023 11:20 AM EDT Patient presents with: Follow Up HPI: Rosa Alonzo, 22 year old female, for followup. She continues to have chronic generalized abdpain with associated nausea and diarrhea. Pain is around 7 everyday but worsens and evaluated in ER. Workup has been nondiagnostic. Food tends to make symptoms worse. Around 10 yrs ago she had episode of pancreatitis without clear etiology. Since she reports a couple episodes. She feels this is etiology for her chronic abd pain. MRI, CT scan, US, HIDA, labs have failed to demonstrate chronic pancreatitis findings. Workup for autoimmune pancreatitis was negative. Triglycerides are normal. She denies EtOH use. No family history of pancreatitis. Around two years ago she had c.diff after course of antibiotics and required two fecal transplants. Stool was negative for c.diff in Mar and Apr. History of IBS-D, limited benefit with dicyclomine. Last EGD was 2 yrs ago, last colonoscopy was 8 months ago in [place]. Past GI workup 05/08/23 ER visit notes as follows: patient is a 22-year-old female with a history of recurrent pancreatitis since age 14 who presents to the Emergency Room for a two day history of pain in the right upper quadrant radiating into the right shoulder. She states she is concerned she may have pancreatitis again. She states it has been several years since her last exacerbation. She does not currently take any medications for her stomach. She is not concerned for , she does not take control, she has had no history of deep vein thrombosis or PE and has not had any upper respiratory symptoms, hemoptysis or extremity swelling. She states she had laparoscopic surgery four months ago for endometriosis. she denies fevers. She denies urinary symptoms. She has had vomiting and diarrhea. 04/19/2023 8:00 AM EDT Office Visit [facility] [address] [place] [address] Kyree Noguera MD Abnormal flushing and sweating (Primary Dx); Pain of upper abdomen; Hypoglycemia; Renal vein stenosis 04/18/23 ER visit for abdominal pain 22-year-old female presents for abdominal pain. It's in the upper abdomen and in particular the right upper quadrant area. She's had it for a few days. She's had issues with recurrent pancreatitis beginning at age 14. She doesn't know what has caused it but she states that it's not from alcohol. She's had a CAT scan earlier this year that she states showed some calcifications in part of the pancreas. No trauma or fever. She's been nauseous and vomited. The pain is moderate to severe at times. 04/14/23 CT/CT abdomen pelvis w con 1. Ill-defined inflammatory changes in the pelvis centered around the rectum which appears to have moderate wall thickening. Findings are suspect for distal colitis, however, the differential also includes pelvic inflammatory disease. 2. No other potentially acute intra-abdominal abnormality demonstrated. 3. Prominent pelvic vasculature which could be reactive or physiologic versus pelvic congestion syndrome secondary to narrowing of the left renal vein as it passes between the SMA and aorta. 04/13/23 MRI ABDOMEN WO/W IVCON No MR findings of acute or chronic pancreatitis. No pancreatic divisum. 04/01/23 ER visit notes patient is a 22-year-old female presents to the Emergency Room with concerns of diarrhea, nausea and vomiting. Patient states she has had symptoms for the past week, was tested earlier in the week for C. difficile which was negative per patient. She sees a specialist to [facility] doctor Butler for GI- currently awaiting genetic testing for pancreatitis noted on CT scan. Patient presents today after having three episodes of diarrhea and noticing that her stool was pale/white appearing, denies blood or pus. She has had nausea this morning and one episode of vomiti ng. 02/06/23 last OV notes as follows: Rosa Alonzo, 22 year old female, presents in the office today for abd pain. She reports chronic generalized abd pain with associated nausea and diarrhea. Pain is around 7 everyday. Food tends to make symptoms worse. Around 10 yrs ago she had episode of pancreatitis without clear etiology. Since she has had a couple episodes still without clear etiology. CT scan, US, HIDA, labs have been nondiagnostic. No family history of pancreatitis. Around two years ago she has c.diff after course of antibiotics and required two fecal transplants. History of IBS-D, limited benefit with dicyclomine. Last EGD was 2 yrs ago, last colonoscopy was 6 months ago. Check labs Start Levbid Start Zenpep Stop dicyclomine 12/01/22 HIDA scan was done at [facility]: Normal study EF 69% US: 10/31/22: (care everywhere) Liver normal Gallbaldder appears normal with no stones or sludge. No gallbladder wall thickening CBD 1.[address] abd/pel w/IV cont: 10/18/22: (scanned): Liver: no enlargement, atrophy, or focal lesion Biliary: no dilation or calcification Pancreas: haziness and poorly defined margins of the head of the pancreas. No stones of duct dilation Bowel: no visible mass, obstruction, or bowel wall thickening. Normal appendix Breath test glucose: 09/20/22: (care everywhere) ; FINDINGS: The patient brushed teeth at 10:13 AM prior to baseline measurement. The baseline hydrogen concentration was 4 ppm. The patient finished substrate at 10:26 AM. The patient brushed teeth again at 10:27 AM. The start time was 10:29 AM with hydrogen concentration of 12 part per million (ppm) at start time. Fifteen minutes later, it was 12 ppm. 30 minutes later, hydrogen concentration was 9 ppm, 45 minutes later it was 5 ppm, 60 minutes later, it was 3 ppm. Colon FMT: 08/15/22: (care everywhere): Impression: Unremarkable colon examination. No ulceration, no pseudomembrane seen. Successful positioning of 140 g of stool donor mixed with 350 mL of normal saline. 08/02/[address] [facility] Gastroenterology Rosa Alonzo is a 21 y.o. female with PMHx of idiopathic pancreatitis, here with recurrent C. Diff infection. 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 Initially dx with C. Diff in 2019, s/p treatment with Vancomycin, then subsequent mild improvement without confirmation, however one year later she tested positive for C. Diff again (09/2021). Patient underwent colonoscopy (normal endo and microscopic exams), treatment with Fidaxomicin and subsequent FMT (even though at the time she had negative antigen test). Colonoscopy w/ FMT (12/29/2021): FINDIN. Unremarkable colon examination. No ulceration, no pseudomembrane seen. 2. Successful positioning of 100 g of stool donor mixed with 120 mL of normal saline. Last labs as follows: Lactate/Lactic Acid on 05-08-2023 Lactate/Lactic Acid 0.6 mmol/ Lipase on 05-08-2023 Lipase [Catalytic activity/Vol] 28.0 U/ Test Name Value Interpretation Reference Range Facility Amylase on 05-08-2023 Amylase [Catalytic activity/Vol] 43 U/L Normal 25-115 Hematocrit (Bld) [Volume fraction] 36.2 % Hemoglobin (Bld) [Mass/Vol] 12.4 g/dL White Blood Count 4.1 10 3/uL ALP [Catalytic activity/Vol] 50 U/L ALT [Catalytic activity/Vol] 15 U/L AST [Catalytic activity/Vol] 16 U/L Bilirubin [Mass/Vol] 0.4 mg/dL Potassium [Moles/Vol] 3.3 mmol/L Component Ref Range & Units 5 mo ago TB Nil <=8.00 IU/mL 0.04 TB1 Ag minus Nil <0.35 IU/mL 0.27 TB2 Ag minus Nil <0.35 IU/mL 0.23 TB Result Negative Mitogen minus Nil >=0.50 IU/mL >9.96 TB GI PANEL (PCR) (04/02/2023 10:00 AM EDT) Results - [facility] GI PANEL (PCR) (04/02/2023 10:00 AM EDT) Pathologist [facility] CAMPYLOBACTER NOT DETECTED NOT DETECTE TBH CLOSTRIDIUM DIFF TOXIN A/B NOT DETECTED NOT DETECTE TBH PLESIOMONAS SHIGELLOIDES NOT DETECTED NOT DETECTE TBH SALMONELLA NOT DETECTED NOT DETECTE TBH VIBRIO NOT DETECTED NOT DETECTE TBH VIBRIO CHOLERAE NOT DETECTED NOT DETECTE TBH YERSINIA ENTEROCOLITICA NOT DETECTED NOT DETECTE TBH TBH EAEC NOT DETECTED NOT DETECTE TBH TBH ETEC NOT DETECTED NOT DETECTE TBH TBH EPEC NOT DETECTED NOT DETECTE TBH SHIGA-LIKE TOXIN-PRODUCING E.C NOT DETECTED NOT DETECTE TBH TBH EIEC NOT DETECTED NOT DETECTE TBH CRYPTOSPORIDIUM NOT DETECTED NOT DETECTE TBH CYCLOSPORA CAYETANENSIS NOT DETECTED NOT DETECTE TBH ENTAMOEBA HISTOLYTICA NOT DETECTED NOT DETECTE TBH GIARDIA LAMBLIA NOT DETECTED NOT DETECTE TBH ADENOVIRUS F 40/41 NOT DETECTED NOT DETECTE TBH ASTROVIRUS NOT DETECTED NOT DETECTE TBH NOROVIRUS GI/GII NOT DETECTED NOT DETECTE TBH ROTAVIRUS A NOT DETECTED NOT DETECTE TBH SAPOVIRUS NOT DETECTED NOT DETECTE TBH PANCREATIC ELASTASE FECAL on 10-31-2022 Pancreatic Elastase, Fecal 253 ug Elast./g Normal >200 Component Latest Ref Rng & Units 05/01/2023 Shigella spp./Enteroinvasive E.coli DNA Not Detected Not detected Campylobacter jejuni/coli DNA Not Detected Not detected Shiga toxin-producing gene(s) Not Detected Not detected Salmonella spp. DNA Not Detected Not detected Cryptosporidium Antigen by EIA Negative Negative for Cryptosporidium by EIA. Giardia Antigen by EIA Negative Negative for Giardia lamblia by EIA. C. difficile PCR Negative for C. difficile toxin by PCR Negative for C. difficile toxin by PCR Test Results Negative Negative for lactoferrin, which may indicate the absence of fecal white bloodcells Component Latest Ref Rng & Units 12/08/2022 03/16/2023 WBC 3.70 - 11.00 k/uL 6.44 4.44 RBC 3.90 - 5.20 m/uL 4.35 4.48 Hemoglobin 11.5 - 15.5 g/dL 13.8 14.1 Hematocrit 36.0 - 46.0 % 40.9 41.7 MCV 80.0 - 100.0 fL 94.0 93.1 MCH 26.0 - 34.0 pg 31.7 31.5 MCHC 30.5 - 36.0 g/dL 33.7 33.8 RDW-CV 11.5 - 15.0 % 11.8 11.6 Platelet Count 150 - 400 k/uL 214 196 MPV 9.0 - 12.7 fL 11.3 10.4 Neut% % 35.8 Abs Neut (ANC) 1.45 - 7.50 k/uL 1.59 Lymph% % 48.9 Abs Lymph 1.00 - 4.00 k/uL 2.17 Nye% % 8.1 Abs Nye <0.87 k/uL 0.36 Eosin% % 5.6 Abs Eosin <0.46 k/uL 0.25 Baso% % 1.4 Abs Baso <0.11 k/uL 0.06 Immature Gran % % 0.2 IMMATURE GRANS (ABS) <0.10 k/uL <0.03 NRBC /100 WBC 0.0 Absolute nRBC <0.01 k/uL <0.01 <0.01 DTYPE Auto Protein, Total 6.3 - 8.0 g/dL 7.6 7.2 Albumin 3.9 - 4.9 g/dL 4.8 4.9 Calcium 8.5 - 10.2 mg/dL 9.6 9.8 Bilirubin, Total 0.2 - 1.3 mg/dL 0.3 0.4 Alkaline Phosphatase 34 - 123 U/L 50 55 AST 13 - 35 U/L 23 16 ALT 7 - 38 U/L 14 10 Glucose 74 - 99 mg/dL 83 102 (H) BUN 7 - 21 mg/dL 15 10 Creatinine 0.58 - 0.96 mg/dL 0.61 0.71 Sodium 136 - 144 mmol/L 135 (L) 142 Potassium 3.7 - 5.1 mmol/L 4.5 4.4 Chloride 97 - 105 mmol/L 101 105 CO2 22 - 30 mmol/L 22 26 Anion Gap 9 - 18 mmol/L 12 11 eGFR >=60 mL/min/1.73m 128 122 Cholesterol, Total <200 mg/dL 202 (H) Triglyceride <150 mg/dL 56 HDL Cholesterol >39 mg/dL 63 Non HDL Cholesterol <130 mg/dL 139 (H) Fasting Time hrs 12 VLDL Cholesterol <30 mg/dL 11 TC:HDL Ratio <5.10 3.21 LDL Cholesterol <100 mg/dL 128 (H) LDL:HDL Ratio <2.54 2.03 WSR 0 - 20 mm/hr 2 2 CRP <0.9 mg/dL <0.3 <0.3 Vitamin D 25 Hydroxy 31.0 - 80.0 ng/mL 24.5 (L) 32.5 Vitamin B12 232 - 1,245 pg/mL 594 Uric Acid 2.5 - 6.6 mg/dL 3.5 Amylase 30 - 104 U/L 43 PHANI Scr Qual Negative Negative Lipase 16 - 61 U/L 20 PAST MEDICAL HISTORY Diagnosis Date Pancreatitis PAST SURGICAL HISTORY Procedure Laterality Date COLONOSCOPY EGD Current Outpatient Medications on File Prior to Visit Medication Sig chlordiazePOXIDE-clidinium (LIBRAX) 5-2.5 mg per capsule TAKE 1 CAPSULE BY MOUTH THREE TIMES DAILY WITH MEALS zkgile-xzczciwm-wkrxgtl (ZENPEP) 40,000-126,000- 168,000 unit delayed release capsule Take 1 capsule by mouth three times daily with meals. ergocalciferol 50,000 unit capsule (VITAMIN D2, DRISDOL) (take by mouth with food twice a week, ONECAPSULE ON SUNDAY AND ONE ON SUNDAY) FOR A TOTAL OF 8 WEEKS. escitalopram oxalate (LEXAPRO) 10 mg tablet Take 10 mg by mouth once daily. ondansetron (ZOFRAN) 4 mg tablet Take 4 mg by mouth as needed. No current facility-administered medications on file prior to visit. Allergies: Metronidazole Mental Status Change, Diarrhea, GI Upset, Hives, Other: See Comments, Rash, Shortness of Breath, Unknown, Vomiting Review of Systems Constitutional: Negative for chills, fatigue and fever. HENT: Negative for hearing loss, nosebleeds, tinnitus and trouble swallowing. Eyes: Negative for visual disturbance. Respiratory: Negative for cough, shortness of breath and wheezing. Cardiovascular: Negative for chest pain and palpitations. Gastrointestinal: Positive for abdominal distention, diarrhea and nausea. Negative for abdominal pain, blood in stool, constipation and vomiting. Endocrine: Negative for polyphagia. Genitourinary: Negative for dysuria, frequency and hematuria. Musculoskeletal: Negative for arthralgias and joint swelling. Skin: Negative for pallor and rash. Neurological: Negative for dizziness, tremors, seizures, syncope and headaches. Hematological: Does not bruise/bleed easily. Ht 162.6 cm (5' 4 ) Wt 52.3 kg (115 lb 4.8 oz) LMP 01/13/2023 BMI 19.79 kg/m Physical Exam Constitutional: General: She is not in acute distress. HENT: Mouth/Throat: Pharynx: Oropharynx is clear. Eyes: Conjunctiva/sclera: Conjunctivae normal. Cardiovascular: Rate and Rhythm: Normal rate and regular rhythm. Pulmonary: Effort: Pulmonary effort is normal. Breath sounds: Normal breath sounds. Abdominal: General: Bowel sounds are normal. There is no distension. Palpations: Abdomen is soft. Tenderness: There is abdominal tenderness. There is no guarding or rebound. Musculoskeletal: General: No swelling. Skin: General: Skin is warm and dry. Coloration: Skin is not jaundiced. Neurological: Mental Status: She is alert. Mental status is at baseline. ASSESSMENT/PLAN: 22 y/o female with chronic abd pain. Etiology is not entirely clear. She has a history of idiopathic pancreatitis but workup has not demonstrated acute or chronic pancreatitis. She is seeing pancreatic biliary specialist in the coming weeks for an opinion. C.Diff testing negative. IBS-D remains an issue, start amitriptyline. Consider referral to [facility] if symptoms fail to improve. 1. Chronic pancreatitis, unspecified pancreatitis type (HCC) - ICD9: 577.1, ICD10: K86.1 (primary diagnosis) - appt scheduled with pancreatic biliary specialist 2. Generalized abdominal pain - ICD9: 789.07, ICD10: R10.84 - start amitriptyline 3. Irritable bowel syndrome with diarrhea - ICD9: 564.1, ICD10: K58.0 - start amitriptyline 4. History of Clostridioides difficile colitis - ICD9: V12.79, ICD10: Z86.19 - stable, negative stool studies Dara Butler Jr. documented in [facility]The [facility] NoteHNO ID: [id number] Author: Dara Butler Jr., DO Service: ? Author Type: Physician Type: Progress Notes Filed: 05/22/2023 12:18 PM Note Text: Patient presents with: Follow Up HPI: Rosa Alonzo, 22 year old female, for followup. She continues to have chronic generalized abd pain with associated nausea and diarrhea. Pain is around 7 everyday but worsens and evaluated in ER. Workup has been nondiagnostic. Food tends to make symptoms worse. Around 10 yrs ago she had episode of pancreatitis without clear etiology. Since she reports a couple episodes. She feels this is etiology for her chronic abd pain. MRI, CT scan, US, HIDA, labs have failed to demonstrate chronic pancreatitis findings. Workup for autoimmune pancreatitis was negative. Triglycerides are normal. She denies EtOH use. No family history of pancreatitis. Around two years ago she had c.diff after course of antibiotics and required two fecal transplants. Stool was negative for c.diff in Mar and Apr. History of IBS-D, limited benefit with dicyclomine. Last EGD was 2 yrs ago, last colonoscopy was 8 months ago in [place]. Past GI workup 05/08/23 ER visit notes as follows: patient is a 22-year-old female with a history of recurrent pancreatitis since age 14 who presents to the Emergency Room for a two day history of pain in the right upper quadrant radiating into the right shoulder. She states she is concerned she may have pancreatitis again. She states it has been several years since her last exacerbation. She does not currently take any medications for her stomach. She is not concerned for , she does not take control, she has had no history of deep vein thrombosis or PE and has not had any upper respiratory symptoms, hemoptysis or extremity swelling. She states she had laparoscopic surgery four months ago for endometriosis. she denies fevers. She denies urinary symptoms. She has had vomiting and diarrhea. 04/19/2023 8:00 AM EDT Office Visit [facility] [address] [place] [address] Kyree Noguera MD Abnormal flushing and sweating (Primary Dx); Pain of upper abdomen; Hypoglycemia; Renal vein stenosis 04/18/23 ER visit for abdominal pain 22-year-old female presents for abdominal pain. It's in the upper abdomen and in particular the right upper quadrant area. She's had it for a few days. She's had issues with recurrent pancreatitis beginning at age 14. She doesn't know what has caused it but she states that it's not from alcohol. She's had a CAT scan earlier this year that she states showed some calcifications in part of the pancreas. No trauma or fever. She's been nauseous and vomited. The pain is moderate to severe at times. 04/14/23 CT/CT abdomen pelvis w con 1. Ill-defined inflammatory changes in the pelvis centered around the rectum which appears to have moderate wall thickening. Findings are suspect for distal colitis, however, the differential also includes pelvic inflammatory disease. 2. No other potentially acute intra-abdominal abnormality demonstrated. 3. Prominent pelvic vasculature which could be reactive or physiologic versus pelvic congestion syndrome secondary to narrowing of the left renal vein as it passes between the SMA and aorta. 04/13/23 MRI ABDOMEN WO/W IVCON No MR findings of acute or chronic pancreatitis. No pancreatic divisum. 04/01/23 ER visit notes patient is a 22-year-old female presents to the Emergency Room with concerns of diarrhea, nausea and vomiting. Patient states she has had symptoms for the past week, was tested earlier in the week for C. difficile which was negative per patient. She sees a specialist to [facility] doctor Butler for GI- currently awaiting genetic testing for pancreatitis noted on CT scan. Patient presents today after having three episodes of diarrhea and noticing that her stool was pale/white appearing, denies blood or pus. She has had nausea this morning and one episode of vomiti ng. 02/06/23 last OV notes as follows: Rosa Alonzo, 22 year old female, presents in the office today for abd pain. She reports chronic generalized abd pain with associated nausea and diarrhea. Pain is around 7 everyday. Food tends to make symptoms worse. Around 10 yrs ago she had episode of pancreatitis without clear etiology. Since she has had a couple episodes still without clear etiology. CT scan, US, HIDA, labs have been nondiagnostic. No family history of pancreatitis. Around two years ago she has c.diff after course of antibiotics and required two fecal transplants. History of IBS-D, limited benefit with dicyclomine. Last EGD was 2 yrs ago, last colonoscopy was 6 months ago. Check labs Start Levbid Start Zenpep Stop dicyclomine 12/01/22 HIDA scan was done at [facility]: Normal study EF 69% US: 10/31/22: (care everywhere) Liver normal Gallbaldder appears normal with (more content not included)...[facility]10-12-2023 Miscellaneous Notes* Telephone Encounter - Analia Estevez RN - 05/03/2023 2:54 PM EDT Left voice message regarding results and advised to call office with any further questions. Analia Estevez RN * Telephone Encounter - Analia Estevez RN - 05/03/2023 2:54 PM EDT ----- Message from Dara Butler Jr., DO sent at 05/02/2023 1:09 PM EDT ----- Stool studies negative Dara Butler Jr., DO documented in this encounterThe [facility]10-03-2023 NoteHNO ID: [id number] Author: Amy Hays LGC Service: ? Author Type: Genetic Counselor Type: Progress Notes Filed: 05/24/2023 10:55 AM Note Text: Patient Name and confirmed at initiation of visit. Dr. Nae Ibarra requested a genetic consultation for Rosa Alonzo, a 22 year old female, for discussion of her personal history of abdominal pain. Prior to the visit, the genetic counselor reviewed records in the patient's EMR including, but not limited to, available clinic notes, physician consultations, laboratory tests, imaging reports, cardiac studies, and other investigations and evaluations. The genetic counselor also reviewed the case with Dr. Begum as needed prior to seeing the patient. Today's appointment was completed as a virtual visit. I have communicated my name and active licensure. The patient's identity and physical location were verified at the time of this visit. 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 The patient attended today's appointment alone. HISTORY OF PRESENT CONDITION: Rosa Alonzo came to medical attention at age 14 when she first presented with abdominal pain in the setting of elevated lipase and amylase levels leading to hospital admission. Since then, she has had recurring episodes of intermittent right sided back pain. She states that she always has some degree of pain, though variable in intensity; she also has nausea with occasional vomiting. Her most recent CT of the abdomen/pelvis reportedly showed chronic pancreatitis, though her most recent MRI (completed 03/2023) was read as normal. She presents today to discuss genetic testing for chronic pancreatitis. Her medical history is also significant for fatigue, anxiety, and depression. PERTINENT PAST MEDICAL AND SURGICAL HISTORY INCLUDES: PAST MEDICAL HISTORY Diagnosis Date Pancreatitis PAST SURGICAL HISTORY Procedure Laterality Date COLONOSCOPY EGD PREVIOUS GENETIC TESTING: None. SOCIAL HISTORY: Lives in [place], [place] with her . 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 FAMILY HISTORY: - Patient's ethnicity: Maternal - ; Paternal - , . - Partner's ethnicity: not applicable. - No known -Czech, Mediterranean, /, [place]er-Armenian/Cajun, or Ashkenazi Mormon ancestry unless noted above. - Parental consanguinity: No A 3 generation pedigree was collected and will be scanned below. Pertinent findings are noted. Children: none; one first trimester SAB. Full siblings and their children: 1) sister, age 31, no known health problems; she has two children, no known health problems. 2) sister, age 28, healthy; she has a 2yo daughter with poor weight gain. 3) brother, age 20, diarrhea and poor weight gain. Maternal half siblings and their children: None Paternal half siblings and their children: None Parental losses: None Mother: 56 years old. H/o hemorrhagic stroke at age 45, tachycardia. Maternal relatives: great uncle, due to complications of diabetes; h/o liver disease (?jaundice), ?pancreas issue. Father: 58 years old. S/p cholecystectomy, HTN, sleep apnea, blood clot, h/o prostate cancer. Paternal relatives: non-contributory. The remainder of Mrs. Alonzo's reported family history is negative for pancreatitis, known or suspected genetic disease, defects, developmental delay/intellectual disability, infertility, recurrent loss, and unexplained . GENETIC COUNSELING RISK ASSESSMENT AND DISCUSSION: Rosa Alonzo is a 22 year old female with a history of pancreatitis. We discussed the natural history and genetic etiology of hereditary pancreatitis. We reviewed that our genes are like instructions that tell our body how to form and how to function. Changes in our genes are known as variants; variants can be benign or disease-causing. We inherit one copy of each gene from our mother, and one copy of each gene from our father. There are several genes known to be associated with hereditary pancreatitis. Hereditary pancreatitis is typically inherited in an autosomal dominant pattern, meaning that a change in one copy of one of these genes is sufficient to increase the risk of/cause pancreatitis. Individuals with autosomal dominant conditions have a 50% chance to pass the disease-causing variant on to each of their children. Autosomal dominant pancreatitis is also characterized by incomplete penetrance, which means that individuals with a disease-causing variant may not always develop symptoms of pancreatitis. As a result, it can seem as though the disease (more content not included)...[facility]09-23-2023 Miscellaneous Notes* Telephone Encounter - Analia Estevez RN - 04/14/2023 9:23 AM EDT Patient has viewed results per [employer]. Analia Estevez RN * Telephone Encounter - Analia Estevez RN - 04/14/2023 9:23 AM EDT ----- Message from Dara Butler Jr., DO sent at 04/13/2023 4:04 PM EDT ----- MRI negative for pancreatitis and anatomic pancreatic abnormalities. Dara Butler Jr., DO documented in this encounterThe [facility]09-08-2023 Miscellaneous Notes* Telephone Encounter - Analia Estevez RN - 03/30/2023 10:33 AM EDT Patient has viewed results per [employer]. Analia Estevez RN * Telephone Encounter - Analia Estevez RN - 03/30/2023 10:33 AM EDT ----- Message from Dara Butler Jr., DO sent at 03/30/2023 7:36 AM EDT ----- C.diff negative Dara Butler Jr., DO * Telephone Encounter - Eva Wynne - 03/23/2023 9:01 AM EDT Rosa Alonzo is calling Dara Butler Jr., DO today to let provider know that she did test positive for CDIFF. She had this testing done through [facility]. She is working on getting faxed results to office. Pt states she feels fine, no symptoms but would like to follow up with nurse. Please advise Patient has been identified by name and birthdate. Duration of symptoms: N/A Person calling: self Call patient at: at home [phone] (home) [phone] (cell) Was an appointment scheduled: No Closing statement: Results or non-symptom based questions: Thank you for calling [facility], your call will be returned within the next business day. Eva Wynne documented in this encounterThe [facility] Hospital09-05-2023 Evaluation note* Encounter Date Diagnosis Assessment Notes Treatment Notes Treatment Clinical Notes Mar, Diarrhea (ICD-10 - R19.7) [facility] Other 09-01-2023 Evaluation note* Encounter Date Diagnosis Assessment Notes Treatment Notes Treatment Clinical Notes Mar, C. difficile diarrhea (ICD-10 - A04.72) [facility] Other 09-01-2023 Miscellaneous Notes* Telephone Encounter - Chiara Pizarro MA - 03/23/2023 7:59 AM EDT Pt was notified via . * Telephone Encounter - Nae Ibarra MD - 03/22/2023 9:36 PM EDT Please Call patient if MyChart note not read to review results/released to My Chart if tests completed at [facility]: Improved/Normal labs and no inflammation. Take over the counter vitamin D 4000 International Units daily with food. Happy to further review and discuss at follow up visit. Continue rest of treatment plan per instructions at last office visit. Thank you. 03/16/23 borderline cholesterol 202;normal rest of cbc, cmp, crp <0.3, esr 2, vitamin D 32.5, lipase 20, amylase 43;negatvei celic, IGG subclasses;negative phani; 12/08/22 low vitamin D 24.5;normal cbc, cmp, esr 2, crp<0.3, uric acid 3.5, vitamin b12-594;negative rf<10, ccp<15, phani ifa, hepatitis panel, quantiferon tb; documented in this encounterThe [facility]08-30-2023 Miscellaneous Notes* Telephone Encounter - Analia Estevez RN - 03/21/2023 11:02 AM EDT Results were viewed by patient per [employer]. Analia Estevez RN * Telephone Encounter - Analia Estevez RN - 03/21/2023 11:00 AM EDT ----- Message from Dara Butler Jr., DO sent at 03/21/2023 7:46 AM EDT ----- Labs essentially unremarkable including negative celiac Dara Butler Jr., DO documented [facility]The [facility]* Encounter Date Diagnosis Assessment Notes Treatment Notes Treatment Clinical Notes Feb, Diarrhea (ICD-10 - R19.7) [employer] Other 08-25-2023 Miscellaneous Notes* Telephone Encounter - Analia Estevez RN - 03/16/2023 12:38 PM EDT Per our discussion please review and sign orders for MRI per out discussion based off [employer] message per patient. Analia Estevez RN documented in this encounterThe [facility]07-18-[facility]23 Instructions* Patient Instructions* Dara Butler Jr., DO - 02/06/2023 10:35 AM EDT Check labs Start Levbid Start Zenpep Stop dicyclomine documented in this encounterThe [facility]07-[facility] History of Present illness Narrative* Dara Butler Jr., DO - 02/06/2023 10:30 AM EDT Consultation requested by Nae Ibarra for an opinion regarding abd pain. My final recommendationswill be communicated back to the requesting physician by way of shared Medical record or letter to requesting physician via US mail. Patient presents with: Abdominal Pain HPI: Rosa Watkins [place], 22 year old female, presents in the office today for abd pain. She reports chronic generalized abd pain with associated nausea and diarrhea. Pain is around 7 everyday. Food tends to make symptoms worse. Around 10 yrs ago she had episode of pancreatitis without clear etiology. Since she has had a couple episodes still without clear etiology. CT scan, US, HIDA, labs have been nondiagnostic. No family history of pancreatitis. Around two years ago she has c.diff after course of antibiotics and required two fecal transplants. History of IBS-D, limited benefit with dicyclomine. Last EGD was 2 yrs ago, last colonoscopy was 6 months ago. Past GI workup US: 10/31/22: (care everywhere) Liver normal Gallbaldder appears normal with no stones or sludge. No gallbladder wall thickening CBD 1.[address] abd/pel w/IV cont: 10/18/22: (scanned): Liver: no enlargement, atrophy, or focal lesion Biliary: no dilation or calcification Pancreas: haziness and poorly defined margins of the head of the pancreas. No stones of duct dilation Bowel: no visible mass, obstruction, or bowel wall thickening. Normal appendix Breath test glucose: 09/20/22: (care everywhere) ; FINDINGS: The patient brushed teeth at 10:13 AM prior to baseline measurement. The baseline hydrogen concentration was 4 ppm. The patient finished substrate at 10:26 AM. The patient brushed teeth again at 10:27 AM. The start time was 10:29 AM with hydrogen concentration of 12 part per million (ppm) at start time. Fifteen minutes later, it was 12 ppm. 30 minutes later, hydrogen concentration was 9 ppm, 45 minutes later it was 5 ppm, 60 minutes later, it was 3 ppm. GI office visit: 09/11/22 (care everywhere): Dr. Rehan Driver Rosa Alonzo is a 21 y.o. female with PMHx of idiopathic pancreatitis, here with recurrent C. Diff infection. 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 Initially dx with C. Diff in 2019, s/p treatment with Vancomycin, then subsequent mild improvement without confirmation, however one year later she tested positive for C. Diff again (09/2021). Patient underwent colonoscopy (normal endo and microscopic exams), treatment with Fidaxomicin and subsequent FMT (even though at the time she had negative antigen test). Colon FMT: 08/15/22: (care everywhere): Impression: Unremarkable colon examination. No ulceration, no pseudomembrane seen. Successful positioning of 140 g of stool donor mixed with 350 mL of normal saline. Colonoscopy w/ FMT (12/29/2021): FINDIN. Unremarkable colon examination. No ulceration, no pseudomembrane seen. 2. Successful positioning of 100 g of stool donor mixed with 120 mL of normal saline. Component Latest Ref Rng & Units 12/08/2022 WBC 3.70 - 11.00 k/uL 6.44 RBC 3.90 - 5.20 m/uL 4.35 Hemoglobin 11.5 - 15.5 g/dL 13.8 Hematocrit 36.0 - 46.0 % 40.9 MCV 80.0 - 100.0 fL 94.0 MCH 26.0 - 34.0 pg 31.7 MCHC 30.5 - 36.0 g/dL 33.7 RDW-CV 11.5 - 15.0 % 11.8 Platelet Count 150 - 400 k/uL 214 MPV 9.0 - 12.7 fL 11.3 Absolute nRBC <0.01 k/uL <0.01 Component Latest Ref Rng & Units 12/08/2022 Hep B Surface Ab, Qual Positive Negative (A) Hep B Surf Ab Quant >=12.00 mIU/mL <8.00 (L) Hep C Antibody IA Negative Negative Hep B Surface Ag Negative Negative Hep B Core Ab, Total Negative Negative Component Latest Ref Rng & Units 12/08/2022 Protein, Total 6.3 - 8.0 g/dL 7.6 Albumin 3.9 - 4.9 g/dL 4.8 Calcium 8.5 - 10.2 mg/dL 9.6 Bilirubin, Total 0.2 - 1.3 mg/dL 0.3 Alkaline Phosphatase 34 - 123 U/L 50 AST 13 - 35 U/L 23 ALT 7 - 38 U/L 14 Glucose 74 - 99 mg/dL 83 BUN 7 - 21 mg/dL 15 Creatinine 0.58 - 0.96 mg/dL 0.61 Sodium 136 - 144 mmol/L 135 (L) Potassium 3.7 - 5.1 mmol/L 4.5 Chloride 97 - 105 mmol/L 101 CO2 22 - 30 mmol/L 22 Anion Gap 9 - 18 mmol/L 12 eGFR >=60 mL/min/1.73m 128 PAST MEDICAL HISTORY Diagnosis Date Pancreatitis PAST SURGICAL HISTORY Procedure Laterality Date COLONOSCOPY EGD Current Outpatient Medications on File Prior to Visit Medication Sig ergocalciferol 50,000 unit capsule (VITAMIN D2, DRISDOL) (take by mouth with food twice a week, ONECAPSULE ON SUNDAY AND ONE ON SUNDAY) FOR A TOTAL OF 8 WEEKS. escitalopram oxalate (LEXAPRO) 10 mg tablet Take 10 mg by mouth once daily. dicyclomine (BENTYL) 10 mg capsule Take 10 mg by mouth three times daily as needed. ondansetron (ZOFRAN) 4 mg tablet Take 4 mg by mouth as needed. No current facility-administered medications on file prior to visit. Allergies: Metronidazole Mental Status Change, Diarrhea, GI Upset, Hives, Other: See Comments, Rash, Shortness of Breath, Unknown, Vomiting Review of Systems Constitutional: Negative for chills, fatigue and fever. HENT: Negative for hearing loss, nosebleeds, tinnitus and trouble swallowing. Eyes: Negative for visual disturbance. Respiratory: Negative for cough, shortness of breath and wheezing. Cardiovascular: Negative for chest pain and palpitations. Gastrointestinal: Positive for abdominal pain, diarrhea and nausea. Negative for abdominal distention, blood in stool, constipation and vomiting. Endocrine: Negative for polyphagia. Genitourinary: Negative for dysuria, frequency and hematuria. Musculoskeletal: Negative for arthralgias and joint swelling. Skin: Negative for pallor and rash. Neurological: Negative for dizziness, tremors, seizures, syncope and headaches. Hematological: Does not bruise/bleed easily. BP 101/67 Pulse 67 Ht 162.6 cm (5' 4 ) Wt 51.3 kg (113 lb) LMP 01/13/2023 SpO2 100% BMI19.40 kg/m Physical Exam Constitutional: General: She is not in acute distress. HENT: Mouth/Throat: Pharynx: Oropharynx is clear. Eyes: Conjunctiva/sclera: Conjunctivae normal. Cardiovascular: Rate and Rhythm: Normal rate and regular rhythm. Pulmonary: Effort: Pulmonary effort is normal. Breath sounds: Normal breath sounds. Abdominal: General: Bowel sounds are normal. There is no distension. Palpations: Abdomen is soft. Tenderness: There is no abdominal tenderness. There is no guarding or rebound. Hernia: No hernia is present. Musculoskeletal: General: No swelling. Skin: General: Skin is warm and dry. Coloration: Skin is not jaundiced. Neurological: Mental Status: She is alert. Mental status is at baseline. ASSESSMENT/PLAN: 22 y/o female with intermittent abd pain, history of pancreatitis, and evidence of malabsorption. At this time will check labs including celiac and workup for autoimmune pancreatitis, start digestiveenzymes, change dicyclomine to Levbid. Followup in 3 months. 1. Chronic pancreatitis, unspecified pancreatitis type (HCC) - ICD9: 577.1, ICD10: K86.1 (primary diagnosis) - HYOSCYAMINE ER 0.375 MG TABLET,EXTENDED RELEASE,12 HR - ZENPEP 40,000 UNIT-126,000 UNIT-168,000 UNIT CAPSULE,DELAYED RELEASE - COMP METABOLIC PANEL - AMYLASE BLD - LIPASE BLD - PHANI BLOOD - LIPID PANEL BASIC - IGG SUBCLASS 1,2,3,4 - CELIAC SCREEN WITH REFLEX 2. Generalized abdominal pain - ICD9: 789.07, ICD10: R10.84 - HYOSCYAMINE ER 0.375 MG TABLET,EXTENDED RELEASE,12 HR - ZENPEP 40,000 UNIT-126,000 UNIT-168,000 UNIT CAPSULE,DELAYED RELEASE - COMP METABOLIC PANEL - AMYLASE BLD - LIPASE BLD - PHANI BLOOD - LIPID PANEL BASIC - IGG SUBCLASS 1,2,3,4 - CELIAC SCREEN WITH REFLEX 3. Intestinal malabsorption, unspecified type - ICD9: 579.9, ICD10: K90.9 - HYOSCYAMINE ER 0.375 MG TABLET,EXTENDED RELEASE,12 HR - ZENPEP 40,000 UNIT-126,000 UNIT-168,000 UNIT CAPSULE,DELAYED RELEASE - COMP METABOLIC PANEL - AMYLASE BLD - LIPASE BLD - PHANI BLOOD - LIPID PANEL BASIC - IGG SUBCLASS 1,2,3,4 - CELIAC SCREEN WITH REFLEX Dara Butler Jr. documented in this encounterThe [facility]07-18-[facility]23 NoteHNO ID: [id number] Author: Dara Butler Jr., Service: ? Author Type: Physician Type: Progress Notes Filed: 02/06/2023 10:49 AM Note Text: Consultation requested by Nae Ibarra for an opinion regarding abd pain. My final recommendations will be communicated back to the requesting physician by way of shared Medical record or letter to requesting physician via US mail. Patient presents with: Abdominal Pain HPI: Rosa Alonzo, 22 year old female, presents in the office today for abd pain. She reports chronic generalized abd pain with associated nausea and diarrhea. Pain is around 7 everyday. Food tends to make symptoms worse. Around 10 yrs ago she had episode of pancreatitis without clear etiology. Since she has had a couple episodes still without clear etiology. CT scan, US, HIDA, labs have been nondiagnostic. No family history of pancreatitis. Around two years ago she has c.diff after course of antibiotics and required two fecal transplants. History of IBS-D, limited benefit with dicyclomine. Last EGD was 2 yrs ago, last colonoscopy was 6 months ago. Past GI workup US: 10/31/22: (care everywhere) Liver normal Gallbaldder appears normal with no stones or sludge. No gallbladder wall thickening CBD 1.[address] abd/pel w/IV cont: 10/18/22: (scanned): Liver: no enlargement, atrophy, or focal lesion Biliary: no dilation or calcification Pancreas: haziness and poorly defined margins of the head of the pancreas. No stones of duct dilation Bowel: no visible mass, obstruction, or bowel wall thickening. Normal appendix Breath test glucose: 09/20/22: (care everywhere) ; FINDINGS: The patient brushed teeth at 10:13 AM prior to baseline measurement. The baseline hydrogen concentration was 4 ppm. The patient finished substrate at 10:26 AM. The patient brushed teeth again at 10:27 AM. The start time was 10:29 AM with hydrogen concentration of 12 part per million (ppm) at start time. Fifteen minutes later, it was 12 ppm. 30 minutes later, hydrogen concentration was 9 ppm, 45 minutes later it was 5 ppm, 60 minutes later, it was 3 ppm. GI office visit: 09/11/22 (care everywhere): Dr. Rehan Driver Rosa Alonzo is a 21 y.o. female with PMHx of idiopathic pancreatitis, here with recurrent C. Diff infection. 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 Initially dx with C. Diff in 2019, s/p treatment with Vancomycin, then subsequent mild improvement without confirmation, however one year later she tested positive for C. Diff again (09/2021). Patient underwent colonoscopy (normal endo and microscopic exams), treatment with Fidaxomicin and subsequent FMT (even though at the time she had negative antigen test). Colon FMT: 08/15/22: (care everywhere): Impression: Unremarkable colon examination. No ulceration, no pseudomembrane seen. Successful positioning of 140 g of stool donor mixed with 350 mL of normal saline. Colonoscopy w/ FMT (12/29/2021): FINDIN. Unremarkable colon examination. No ulceration, no pseudomembrane seen. 2. Successful positioning of 100 g of stool donor mixed with 120 mL of normal saline. Component Latest Ref Rng AND Units 12/08/2022 WBC 3.70 - 11.00 k/uL 6.44 RBC 3.90 - 5.20 m/uL 4.35 Hemoglobin 11.5 - 15.5 g/dL 13.8 Hematocrit 36.0 - 46.0 % 40.9 MCV 80.0 - 100.0 fL 94.0 MCH 26.0 - 34.0 pg 31.7 MCHC 30.5 - 36.0 g/dL 33.7 RDW-CV 11.5 - 15.0 % 11.8 Platelet Count 150 - 400 k/uL 214 MPV 9.0 - 12.7 fL 11.3 Absolute nRBC <0.01 k/uL <0.01 Component Latest Ref Rng AND Units 12/08/2022 Hep B Surface Ab, Qual Positive Negative (A) Hep B Surf Ab Quant >=12.00 mIU/mL <8.00 (L) Hep C Antibody IA Negative Negative Hep B Surface Ag Negative Negative Hep B Core Ab, Total Negative Negative Component Latest Ref Rng AND Units 12/08/2022 Protein, Total 6.3 - 8.0 g/dL 7.6 Albumin 3.9 - 4.9 g/dL 4.8 Calcium 8.5 - 10.2 mg/dL 9.6 Bilirubin, Total 0.2 - 1.3 mg/dL 0.3 Alkaline Phosphatase 34 - 123 U/L 50 AST 13 - 35 U/L 23 ALT 7 - 38 U/L 14 Glucose 74 - 99 mg/dL 83 BUN 7 - 21 mg/dL 15 Creatinine 0.58 - 0.96 mg/dL 0.61 Sodium 136 - 144 mmol/L 135 (L) Potassium 3.7 - 5.1 mmol/L 4.5 Chloride 97 - 105 mmol/L 101 CO2 22 - 30 mmol/L 22 Anion Gap 9 - 18 mmol/L 12 eGFR >=60 mL/min/1.73mA? 128 PAST MEDICAL HISTORY Diagnosis Date Pancreatitis PAST SURGICAL HISTORY Procedure Laterality Date COLONOSCOPY EGD Current Outpatient Medications on File Prior to Visit Medication Sig ergocalciferol 50,000 unit capsule (VITAMIN D2, DRISDOL) (take by mouth with food twice a week, ONE CAPSULE ON SUNDAY AND ONE ON SUNDAY) FOR A TOTAL OF 8 WEEKS. escitalopram oxalate (LEXAPRO) 10 mg tablet Take 10 mg by mouth once daily. dicyclomine (BENTYL) 10 mg capsule Take 10 mg by mouth three times daily as needed. ondansetron (ZOFRAN) 4 mg tablet Take 4 mg by mouth as needed. No current facility-administered medications on file prior (more content not included)...[facility]06-05-2023 Miscellaneous Notes* Telephone Encounter - Ana Eckert - 12/25/2022 10:22 AM EDT Spoke with patient Scheduled Consult to GI for first avail at [place] in January Did not schedule Med Gen Consult. Still pending review- patient said she will schedule when she sees Dr Luke Eckert December 25, 2022 10:27 AM * Telephone Encounter - Chiara Pizarro MA - 12/25/2022 9:22 AM EDT Pt has been notified via [employer] * Telephone Encounter - Nae Ibarra MD - 12/23/2022 12:53 AM EDT Please call patient. Thank you for the update and your kind words. Sorry to hear about your discomfort. Placed a consult to medical genetics and GI as requested. May schedule at your convenience. Hope you feel better soon! Warm regards, :) documented in this encounterThe [facility] note* Encounter Date Diagnosis Assessment Notes Treatment Notes Treatment Clinical Notes November, Nausea (ICD-10 - R11.0) Advised pt to avoid smoking marijuana to see if that helps relieve symptoms. November, Pancreatitis (ICD-10 - K85.90) November, Abnormal abdominal CT scan (ICD-10 - R93.5) November, Abdominal pain (ICD-10 - R10.9) Start dicyclomine 10mg tid November, Irritable bowel syndrome with diarrhea (ICD-10 - K58.0) Recommended Benefiber Follow up 2 months [employer] Other 02-20-2023 [facility] Gastroenterology Follow-Up Patient Visit CHIEF COMPLAINT Chief Complaint Patient presents with continued stomach issues HISTORY OF PRESENT ILLNESS: Rosa Alonzo is a 21 y.o. female with PMHx of idiopathic pancreatitis, here with recurrent C. Diff infection. 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 Initially dx with C. Diff in 2019, s/p treatment with Vancomycin, then subsequent mild improvement without confirmation, however one year later she tested positive for C. Diff again (09/2021). Patient underwent colonoscopy (normal endo and microscopic exams), treatment with Fidaxomicin and subsequent FMT (even though at the time she had negative antigen test). INTERVAL HISTORY 08/02/2022: After FMT in December 2021 she was feeling well. Went to new PCP in April and had stool samples done, although she was not having any symptoms at the time. In June she was started on antibiotics including Flagyl and Cipro due to positive stool samples (+ Klebsiella Raoultella, Hafnia, streptococcus parasanguinis, and streptococcus salivarius/vestibularis). She was negative for C. Diff at this time. After finishing this course of antibiotic she began to experience fevers, chills, and lower abdominal cramping. She was then tested for C. Diff 07/28/2022 and found to be positive. She is currently on Dificid 200mg BID. Now having 1 BM daily, BSS 4-5, with intermittent abdominal pain and fatigue. Denies hematochezia and melena. INTERVAL HISTORY 2/8/23: Since FMT patient states that she has had multiple bouts of diarrhea. Has been having BM about 3 times daily with watery stools. Associated symptoms include fatigue, decreased appetite, and nausea. She has also been having chills but has not taken her temperature so unsure of if she is having fevers. Endorses intermittent mild lower abdominal pain but cannot relate any triggers. Denies unintentional weight loss, vomiting, hematochezia, and melena. She does mention that her dog was recently diagnosed with C. Diff and is currently taking antibiotic. Patient continuing to take probiotic twice daily. INTERVAL HISTORY 09/11/22: Since previous clinic visit patient has had continued diarrhea. States she is having about 3 BMs daily with loose stools. She also mentions having intermittent generalized burning abdominal pain that is unchanged with BM. Associated symptoms include decreased appetite, nausea, cramping, and bloating. She has lost 3 lbs since last clinic visit about 2 weeks ago. Feels she may be having low-grade fevers as well but has not taken her temperature at all. Also reports episode of emesis a few days ago. She has been eating a bland diet. Denies heartburn, hematochezia, and melena. Currently taking daily probiotic and using Zofran as needed a few times a week. She has also been using a fiber supplement for about a week which has bulked up her stools. Most recent stool studies including C. Diff, calprotectin, and enteric panel all negative (08/30). PREVIOUS LABS/IMAGING/ENDOSCOPY: Colonoscopy w/ FMT (08/15/2022): Impression: Unremarkable colon examination. No ulceration, no pseudomembrane seen. Successful positioning of 140 g of stool donor mixed with 350 mL of normal saline. Recommendations: Saccharomyces boulardii 500mg p.o. b.i.d. for 4 weeks. Colonoscopy w/ FMT (12/29/2021): FINDIN. Unremarkable colon examination. No ulceration, no pseudomembrane seen. 2. Successful positioning of 100 g of stool donor mixed with 120 mL of normal saline. RECOMMENDATION: We will start the patient on saccharomyces boulardii 500mg p.o. b.i.d. for 4 weeks. HISTORY: Problem list: Patient Active Problem List Diagnosis Clostridium difficile colitis Bile reflux gastritis Allergy to food Anxiety about health Body mass index (BMI) of 20 to 24 Borborygmi Chronic fatigue Altered bowel function Lower abdominal pain Generalized anxiety disorder Irritable bowel syndrome with diarrhea Nausea Recurrent infections Underweight Urticaria Past Medical History: Past Medical History: Diagnosis Date C. difficile diarrhea 08/15/2022 Pancreatitis Past Surgical History: Past Surgical History: Procedure Laterality Date MOLE REMOVAL Left back WISDOM TOOTH EXTRACTION FAMILY HISTORY: No family history on file. SOCIAL HISTORY: Social History Tobacco Use Smoking status: Never Smokeless tobacco: Never Vaping Use Vaping Use: Never used Substance Use Topics Alcohol use: Never Drug use: Yes Types: Marijuana Comment: marijuana on occasional ALLERGIES: Metronidazole Current Medications: Current Outpatient Medications: saccharomyces boulardii (Florastor) 250 mg capsule, Take 2 capsules (500 mg) by mouth in the morning and at bedtime., Disp: 120 capsule, Rfl: 0 I reviewed and reconciled this patient's medication list today. The list included in this note is the most up to date list that I (more content not included)...[facility]02-08-2023 [facility] Gastroenterology Follow-Up Patient Visit CHIEF COMPLAINT Chief Complaint Patient presents with Colonoscopy HISTORY OF PRESENT ILLNESS: Rosa Alonzo is a 21 y.o. female with PMHx of idiopathic pancreatitis, here with recurrent C. Diff infection. 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 Initially dx with C. Diff in 2019, s/p treatment with Vancomycin, then subsequent mild improvement without confirmation, however one year later she tested positive for C. Diff again (09/2021). Patient underwent colonoscopy (normal endo and microscopic exams), treatment with Fidaxomicin and subsequent FMT (even though at the time she had negative antigen test). INTERVAL HISTORY 08/02/2022: After FMT in December 2021 she was feeling well. Went to new PCP in April and had stool samples done, although she was not having any symptoms at the time. In June she was started on antibiotics including Flagyl and Cipro due to positive stool samples (+ Klebsiella Raoultella, Hafnia, streptococcus parasanguinis, and streptococcus salivarius/vestibularis). She was negative for C. Diff at this time. After finishing this course of antibiotic she began to experience fevers, chills, and lower abdominal cramping. She was then tested for C. Diff 07/28/2022 and found to be positive. She is currently on Dificid 200mg BID. Now having 1 BM daily, BSS 4-5, with intermittent abdominal pain and fatigue. Denies hematochezia and melena. INTERVAL HISTORY 08/30/22: Since FMT patient states that she has had multiple bouts of diarrhea. Has been having BM about 3 times daily with watery stools. Associated symptoms include fatigue, decreased appetite, and nausea. She has also been having chills but has not taken her temperature so unsure of if she is having fevers. Endorses intermittent mild lower abdominal pain but cannot relate any triggers. Denies unintentional weight loss, vomiting, hematochezia, and melena. She does mention that her dog was recently diagnosed with C. Diff and is currently taking antibiotic. Patient continuing to take probiotic twice daily. PREVIOUS LABS/IMAGING/ENDOSCOPY: Colonoscopy w/ FMT (08/15/2022): Impression: Unremarkable colon examination. No ulceration, no pseudomembrane seen. Successful positioning of 140 g of stool donor mixed with 350 mL of normal saline. Recommendations: Saccharomyces boulardii 500mg p.o. b.i.d. for 4 weeks. Colonoscopy w/ FMT (12/29/2021): FINDIN. Unremarkable colon examination. No ulceration, no pseudomembrane seen. 2. Successful positioning of 100 g of stool donor mixed with 120 mL of normal saline. RECOMMENDATION: We will start the patient on saccharomyces boulardii 500mg p.o. b.i.d. for 4 weeks. HISTORY: Problem list: Patient Active Problem List Diagnosis Clostridium difficile colitis Bile reflux gastritis Allergy to food Anxiety about health Body mass index (BMI) of 20 to 24 Borborygri Chronic fatigue Altered bowel function Lower abdominal pain Generalized anxiety disorder Irritable bowel syndrome with diarrhea Nausea Recurrent infections Underweight Urticaria Past Medical History: Past Medical History: Diagnosis Date C. difficile diarrhea 08/15/2022 Pancreatitis Past Surgical History: Past Surgical History: Procedure Laterality Date MOLE REMOVAL Left back WISDOM TOOTH EXTRACTION FAMILY HISTORY: No family history on file. SOCIAL HISTORY: Social History Tobacco Use Smoking status: Never Smokeless tobacco: Never Vaping Use Vaping Use: Never used Substance Use Topics Alcohol use: Never Drug use: Yes Types: Marijuana Comment: marijuana on occasional ALLERGIES: Metronidazole Current Medications: Current Outpatient Medications: saccharomyces boulardii (Florastor) 250 mg capsule, Take 2 capsules (500 mg) by mouth in the morning and at bedtime., Disp: 120 capsule, Rfl: 0 ciprofloxacin (Cipro) 250 mg tablet, every 8 (eight) hours., Disp: , Rfl: clotrimazole (Mycelex) 10 mg lexis, 1 lozenge every 12 (twelve) hours., Disp: , Rfl: dicyclomine (Bentyl) 20 mg tablet, 1 tablet, Disp: , Rfl: fidaxomicin (Dificid) 200 mg tablet, , Disp: , Rfl: fluconazole (Diflucan) 100 mg tablet, 1 (one) time each day at the same time., Disp: , Rfl: metroNIDAZOLE (Flagyl) 250 mg tablet, every 8 (eight) hours., Disp: , Rfl: ondansetron ODT (Zofran-ODT) 4 mg disintegrating tablet, DISSOLVE 1 TAB ON TONGUE EVERY 6 HOURS NEEDED, Disp: , Rfl: I reviewed and reconciled this patient's medication list today. The list included in this note is the most up to date list that I can attest to at this time based on the information that the patient has provided me and the electronic medical record. REVIEW OF SYSTEMS: See HPI, otherwise ROS as below CONSTITUTIONAL: negative HEENT: negative RESPIRATORY: negative CARDIOVASCULAR: negative GASTROINTESTINAL: As in HPI GENITOURINARY: negative IN (more content not included)...[facility]01-24-2023 NotePatient: Rosa Alonzo Pre-sedation Evaluation: No past medical history on file. Principle problems: Patient Active Problem List Diagnosis Date Noted Bile reflux gastritis 05/02/2022 Allergy to food 05/02/2022 Anxiety about health 05/02/2022 Body mass index (BMI) of 20 to 24 05/02/2022 Borborygmi 05/02/2022 Altered bowel function 05/02/2022 Lower abdominal pain 05/02/2022 Generalized anxiety disorder 05/02/2022 Irritable bowel syndrome with diarrhea 05/02/2022 Nausea 05/02/2022 Underweight 05/02/2022 Chronic fatigue 12/09/2021 Recurrent infections 12/09/2021 Urticaria 12/09/2021 Clostridium difficile colitis 10/28/2021 Allergies: Allergies Allergen Reactions Metronidazole Anxiety, Diarrhea, Dizziness, Nausea Only, Palpitations, Rash and Shortness of breath [employer]/Current Medications: (Not in a hospital admission) Current Outpatient Medications Medication Sig Dispense Refill ciprofloxacin (Cipro) 250 mg tablet every 8 (eight) hours. clotrimazole (Mycelex) 10 mg lexis 1 lozenge every 12 (twelve) hours. dicyclomine (Bentyl) 20 mg tablet 1 tablet fidaxomicin (Dificid) 200 mg tablet fluconazole (Diflucan) 100 mg tablet 1 (one) time each day at the same time. metroNIDAZOLE (Flagyl) 250 mg tablet every 8 (eight) hours. ondansetron ODT (Zofran-ODT) 4 mg disintegrating tablet DISSOLVE 1 TAB ON TONGUE EVERY 6 HOURS NEEDED saccharomyces boulardii (Florastor) 250 mg capsule 1-2 capsules No current facility-administered medications for this encounter. Past Surgical History: has no past surgical history on file. Physical Exam Airway Mallampati: II Cardiovascular - normal exam Rhythm: regular Dental Pulmonary - normal exam Plan ASA 2[facility]01-11-2023 Note Attestation signed by Obie Nelson MD at 08/04/2022 3:16 AM I personally saw the patient on the day of the encounter, performed the murray portion(s) of the service and participated in the management and confirm the Nurse practitioner's documentation. 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 [facility] Gastroenterology Follow-Up Patient Visit CHIEF COMPLAINT Chief Complaint Patient presents with f/u c diff HISTORY OF PRESENT ILLNESS: Rosa Alonzo is a 21 y.o. female with PMHx of idiopathic pancreatitis, here with recurrent C. Diff infection. 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 Initially dx with C. Diff in 2019, s/p treatment with Vancomycin, then subsequent mild improvement without confirmation, however one year later she tested positive for C. Diff again (09/2021). Patient underwent colonoscopy (normal endo and microscopic exams), treatment with Fidaxomicin and subsequent FMT (even though at the time she had negative antigen test). INTERVAL HISTORY 08/02/2022: After FMT in December 2021 she was feeling well. Went to new PCP in April and had stool samples done, although she was not having any symptoms at the time. In June she was started on antibiotics including Flagyl and Cipro due to positive stool samples (+ Klebsiella Raoultella, Hafnia, streptococcus parasanguinis, and streptococcus salivarius/vestibularis). She was negative for C. Diff at this time. After finishing this course of antibiotic she began to experience fevers, chills, and lower abdominal cramping. She was then tested for C. Diff 07/28/2022 and found to be positive. She is currently on Dificid 200mg BID. Now having 1 BM daily, BSS 4-5, with intermittent abdominal pain and fatigue. Denies hematochezia and melena. PREVIOUS LABS/IMAGING/ENDOSCOPY: Colonoscopy w/ FMT (12/29/2021): FINDIN. Unremarkable colon examination. No ulceration, no pseudomembrane seen. 2. Successful positioning of 100 g of stool donor mixed with 120 mL of normal saline. RECOMMENDATION: We will start the patient on saccharomyces boulardii 500mg p.o. b.i.d. for 4 weeks. HISTORY: Problem list: Patient Active Problem List Diagnosis Clostridium difficile colitis Bile reflux gastritis Allergy to food Anxiety about health Body mass index (BMI) of 20 to 24 Borborygmi Chronic fatigue Altered bowel function Lower abdominal pain Generalized anxiety disorder Irritable bowel syndrome with diarrhea Nausea Recurrent infections Underweight Urticaria Past Medical History: History reviewed. No pertinent past medical history. Past Surgical History: History reviewed. No pertinent surgical history. FAMILY HISTORY: No family history on file. SOCIAL HISTORY: Social History Tobacco Use Smoking status: Never Smokeless tobacco: Never Vaping Use Vaping Use: Never used Substance Use Topics Alcohol use: Never Drug use: Yes Types: Marijuana ALLERGIES: Metronidazole Current Medications: Current Outpatient Medications: fidaxomicin (Dificid) 200 mg tablet, , Disp: , Rfl: ciprofloxacin (Cipro) 250 mg tablet, every 8 (eight) hours., Disp: , Rfl: clotrimazole (Mycelex) 10 mg lexis, 1 lozenge every 12 (twelve) hours., Disp: , Rfl: dicyclomine (Bentyl) 20 mg tablet, 1 tablet, Disp: , Rfl: fluconazole (Diflucan) 100 mg tablet, 1 (one) time each day at the same time., Disp: , Rfl: metroNIDAZOLE (Flagyl) 250 mg tablet, every 8 (eight) hours., Disp: , Rfl: ondansetron ODT (Zofran-ODT) 4 mg disintegrating tablet, DISSOLVE 1 TAB ON TONGUE EVERY 6 HOURS NEEDED, Disp: , Rfl: polyethylene glycol (Golytely) 236-22.74-6.74 -5.86 gram solution, Take 4,000 mL by mouth 1 (one) time for 1 dose., Disp: 4000 mL, Rfl: 0 saccharomyces boulardii (Florastor) 250 mg capsule, 1-2 capsules, Disp: , Rfl: I reviewed and reconciled this patient's medication list today. The list included in this note is the most up to date list that I can attest to at this time based on the information that the patient has provided me and the electronic medical record. REVIEW OF SYSTEMS: See HPI, otherwise ROS as below CONSTITUTIONAL: negative HEENT: negative RESPIRATORY: negative CARDIOVASCULAR: negative GASTROINTESTINAL: As in HPI GENITOURINARY: negative INTEGUMENT/BREAST: negative MUSCULOSKELETAL: negative NEUROLOGICAL: negative BEHAVIOR/PSYCH: negative PHYSICAL EXAM: Vitals: 08/02/22 0921 BP: 115/68 BP Location: Left arm Patient Position: Sitting BP Cuff Size: Small adult Pulse: 86 Weight: 52.6 kg (116 lb) Height: 1.626 m (5' 4 ) Body mass index is 19.91 kg/m???. CONSTITUTIONAL: awake, alert and no apparent distress EYES: pupils equal, round and reactive to light; conjunctiva pink and normal (more content not included)...[facility]01-01-2023 History general Narrative - Reported* Type Description Date Medical History Esophageal reflux Medical History anxiety Surgical History wisdom teeth extract Surgical History FMT 07/2022 Hospitalization History pancreatitis [employer] Other 10-06-2022 Evaluation note* Encounter Date Diagnosis Assessment Notes Treatment Notes Treatment Clinical Notes Apr, Irritable bowel syndrome with diarrhea (ICD-10 - K58.0) PATIENT DOES HAVE 3 BOWEL MOVEMENTS A DAY SOMETIMES 1 Apr, RUQ pain (ICD-10 - R10.11) [employer] Other 08-24-2022 History of Present illness Narrative* Mckenzie Kincaid RN - 03/15/2022 3:30 PM EDT Patient verified full name and * Phani Presley MD - 03/15/2022 3:30 PM EDT GI CLINIC PROGRESS NOTE PATIENT NAME: Rosa Henao ATTENDING: Phani Presley MD : 2000 AGE: 21 y.o. GENDER: female LOCATION: GENERAL AND GASTROINTESTINAL SURGERY [facility] [place] DATE OF VISIT: 03/15/2022 REFERRING MD: Jaya Parikh MD REASON FOR VISIT: Diarrhea, h/o c diff infection HISTORY OF PRESENT ILLNESS: This is a 21 y.o. female with no significant PMH, here with recurrent c. Diff infection. 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 Initially dx with c. Diff infection 2019, s/p treatment with Vancomycin, then subsequent mild imprvement without confirmation, however one year later she tested positive fr c. Diff again (09/2021). Patient underwent colonoscopy (normal endo and microscopic exams), treatment with Fidaxomicin and subsequent FMT (even though at the time she had negative antigen test. Now 6 months post FNT symptoms persist. Patient says that stool is non-formed 2-3 times a day, associated with urgency. No blood or mucous in the stool. Mild abdominal cramping as well. Stable weight. No sick contacts. No ETOH, no Tobacco. Uses marijuana and viper. PAST MEDICAL HISTORY: No past medical history on file. PSH: She has no past surgical history on file. CURRENT MEDICATIONS: No current outpatient medications on file. ALLERGIES: Not on File FAMILY HISTORY: No family history on file. SOCIAL HISTORY: She has no history on file for tobacco use, alcohol use, and drug use. REVIEW OF SYSTEMS: CONSTITUTIONAL: Pt denied fever, chills, nightsweats or change in appetite. No unusual weight changes. HEENT: Pt denied oral sores, visual disturbances, diplopia, sore throat or sinus pain. RESPIRATORY: Pt denied stridor, cough, choking or wheezing. CARDIOVASCULAR: Pt denied chest pain, edema or palpitations. GI: See HPI ENDOCRINE: Pt denied polydipsia, polyphagia, polyuria. : Pt denied incontinence, dysuria, hematuria. MUSCULOSKELETAL: Pt denied joint swelling, gait problem, neck stiffness. SKIN: Pt denied rash, pruritus, color change. NEURO: Pt denied numbness, speech difficulties, seizures. HEMATOLOGIC: Pt denied adenopathy, easy bleeding or bruising. PSYCH: Pt denied hallucinations, hyperactivity, agitation. Vital Signs: There were no vitals filed for this visit. There is no height or weight on file to calculate BMI. PHYSICAL EXAMINATION: GENERAL APPEARANCE: A pleasant female, well nourished, no apparent distress, alert, oriented SKIN: no spider angioma, no bruise or rash HEAD, EYES, EARS, NOSE AND THROAT: normocephalic, anicteric, No pallor ORAL MUCOSA: moist, no oral thrush NECK: supple, no JVD (jugular venous distention), no lymphadenopathy CHEST/LUNGS: Trachea midline, clear to auscultation, normal thorax expansion HEART: No JVD (jugular venous distention) normal sinus rhythm, S1/S2 normal, no murmur ABDOMEN: Soft, non tender, no hepatosplenomegaly, no ascites, Bowel sounds: normal EXTREMITIES: No edema, No clubbing, No palmar erythema NEURO-PSYCHIATRIC: Normal affect, normal speech, no focal motor deficit. No asterixis DIAGNOSTIC DATA: Laboratory Data: Laboratory data personally reviewed by me. Imaging Data: Imaging data personally reviewed by me. IMPRESSION: This is a 21 y.o. female with prior h/o c diff infection in 2019, s/p Vanco treatment, subsequently with symptoms back 6 months ago where as per patient recurrent c diff infection, s/p treatment with fidaxomicin and [employer]. Symptoms persist, possible post infection IBS vs recurrent c. Diffinfection. Active marijuana user, smokes viper as well. DISPOSITION AND PLAN: 1. Will obtain c diff toxin Ag 2. Stool enteric panel 3. [place] of Bentyl 4. Imodium prn (after infection is ruled out) 5. Marijuana and viper abstinence counseling provided. Face to face interaction: 25 Time to complete visit: 60 Phani Presley MD [employer] Division of Gastroenterology, Hepatology and Nutrition Department of Internal Medicine [facility] Instructions* Patient Instructions* Phani Presley MD - 03/15/2022 3:30 PM EDT C diff toxin Ag Enteric stool panel Dicyclomine Imodium prn if infection is ruled out [facility] Evaluation note * Encounter Date Diagnosis Assessment Notes Treatment Notes Treatment Clinical Notes Sep, C. difficile diarrhea (ICD-10 - A04.72) START DIFICID DIRECTED REFERRAL TO [facility] FOR RECURRET C.DIFF [employer] Other 11-30-2021 NoteChief Complaint consultation for nausea HPI Staff 20 year old female presents on consultation from Dr. Augustin for daily nausea with abdominal cramping and multiple soft stools per day. Denies vomiting. No weight loss. Stool and celiac studies negative.Prescribed Levsin 05/30, which was not helpful. Last colonoscopy 12/2020. History of Present Illness 20 yo female with long h/o abdominal complaints, presents for worsening nausea and abdominal cramping/borborygmi; no triggers, occurs in the morning even without eating; no emesis, frequent soft stools; no blood; no wt loss; colonoscopy in December with redundant colon with spasm; recent negative stool studies and celiac antibodies; no fmhx of Gi malignancy or IBD. Review of Systems PHQ Score Initial Depression Screen Score: 0 ROS - Provider Constitutional: no fever, no sweats, no weight loss. Eyes: no glasses, no blurred vision, no visual loss. ENMT: no dentures, no hoarseness, no swallowing difficulties, no hearing loss, no ear infection(s),no nose bleeds. Cardiovascular: normal blood pressure, no chest pain, regular heartbeat, no heart murmur. Respiratory: no shortness of breath, no cough, no asthma, no wheezing. Gastrointestinal: yes nausea, no vomiting, no diarrhea, no constipation, no blood in stool, no change in bowel habits, yes abdominal pain, no hepatitis. Genitourinary: no kidney stones, no urine infection, no dysuria. Musculoskeletal: no pain, no weakness. Skin: no changing moles, no rash, no skin lumps. Neurologic: no seizures, no epilepsy, no headache. Psychiatric: no emotional or psychiatric problem. Heme/Lymph: no bleeding problems, no anemia, no blood clots, no transfusions. Allergy/Immunologic: no swollen lymph nodes/glands, no IV drug abuse. Other: Additional ROS info: Except as noted in the above Review of Systems and in the History of Present Illness, all other systems have been reviewed and are negative or noncontributory. Physical Exam Vitals & Measurements T: 36.3 ?C(Temporal Artery) HR: 72(Peripheral) RR: 16 BP: 118/62 HT: 161.3 cm HT: 161.3 cm WT: 55.4 kg WT: 55.4 kg BMI: 21.29 HEENT: normal conjunctiva, sclera clear, no scleral icterus, EOM intact, PERRLA, oral mucosa moist without lesions. Neck: trachea midline, no mass, symmetric, no thyromegaly or nodules, no adenopathy Respiratory: lungs CTA, respirations non labored. Cardiovascular: regular rate and rhythm, no murmur, no pedal edema or varicosities. Gastrointestinal: soft, non distended, mild tenderness, mid abdomen; masses, no palpable hernias, diastasis recti no, no hepatosplenomegaly; normal bs Lymphatic: no cervical adenopathy, Musculoskeletal: normal gait, digits and nails without infection, nodes, cyanosis, clubbing. Skin: no rashes, no lesions, no ulcers, no subcutaneous nodules, induration. Psychiatric/Neuro: oriented to time, place, person, judgement normal, affect appropriate for age, insight intact, no focal deficits. Tests: labs reviewed, x-rays reviewed, review of old records completed, Discussed surgical options, risks, and possible complications with patient. Assessment/Plan 1. Nausea (R11.0: Nausea) plan EGD under anesthesia for further evaluation, informed consent obtained. 2. Borborygmi (R19.8: Other specified symptoms and signs involving the digestive system and abdomen) see # 1 3. Abdominal pain, generalized (R10.84: Generalized abdominal pain) see # 1 Follow-up No qualifying data available Problem List/Past Medical History Ongoing Abdominal pain, bilateral lower quadrant Abdominal pain, generalized BMI 21.0-21.9, adult Borborygmi Change in bowel habits Frequent loose stools IBS (irritable bowel syndrome) Nausea Historical Acute gastroenteritis Epigastric pain Fatigue GERD - Gastro-esophageal reflux disease Headache Insomnia Numbness of upper limb Ovarian cyst Pancreatitis Paresthesia Pleurisy Syncope Weight loss Procedure/Surgical History Removal of mole of skin by excision (07/23/2020), Extraction of wisdom tooth (07/23/2016). Medications No active medications Allergies No Known Allergies Social History Alcohol - Denies Alcohol Use, 06/21/2021 Substance Abuse - Denies Substance Abuse, 06/21/2021 Tobacco Never (less than 100 in lifetime) Tobacco Use:., 06/21/2021 Family History Cancer: Father. Stroke: Mother.[facility] CenterComment [facility]:Result Comment: Electronically Signed By: KALEB MACKEY, Ana Lan\Date and Time Signed: 06/21/21 20:44 [id number] Evaluation note* Encounter Date Diagnosis Assessment Notes Treatment Notes Treatment Clinical Notes Apr, Contact with and (suspected) exposure to other viral communicable diseases (ICD-10 - Z20.828) Today test was performed in office. Results are currently negative. That does not mean that you will not develop COVID or do not currently have a low viral count of COVID. The rapid test works best if symptoms have been over 72 hours and the results can vary if you are asymptomatic There is a higher chance of false negative results to occur if testing is performed too soon. It is recommended that even if results are negative and you have been exposed to someone that has COVID that you follow current CDC recommendations. These can be found at CDC.GOV. Follow up with primary care provider if symptoms persist or do not improve Apr, Other Additional time spent conducting pre-visit phone call, screening for symptoms, instructions on social distancing, application and removal of PPE, and cleaning of examination room, equipment and supplies was preformed. Patient education given for testing methodology and results. Patient care instructions given in writting by [facility] document. [employer] Other 05-18-2021 NoteChief Complaint Consultation for Colonoscopy HPI Staff 20 year old female referred by Dr. Augustin on consultation for Colonoscopy due to symptoms of abdominalpain and diarrhea. Symptoms have been present x 1 month. Has noticed blood in stool while wiping. No previous Colonoscopy. Mild rectal pain. Taking OTC probiotic x 3 weeks. No family History of coloncancer. C/o occasional headaches for the last few weeks. History of Present Illness 20 yo female referred for 1 year h/o bowel changes, frequent soft stools with associated abdominal cramping, up to 5 times per day, even without eating, occasional red blood with wiping, none in stools; h/o C difficile infection 1 month ago that resolved with antibiotics, stools back to her baseline change; no N/V; no wt loss, no previous abdominal operations; no previous colonoscopy; no asa or NSAID use, no SBE prophylaxis; no fhx of GI malignancy or IBD. Review of Systems PHQ Score Initial Depression Screen Score: 0 ROS - Provider Constitutional: no fever, no sweats, no weight loss. Eyes: no glasses, no blurred vision, no visual loss. ENMT: no dentures, no hoarseness, no swallowing difficulties, no hearing loss, no ear infection(s),no nose bleeds. Cardiovascular: normal blood pressure, no chest pain, regular heartbeat, no heart murmur. Respiratory: no shortness of breath, no cough, no asthma, no wheezing. Gastrointestinal: no nausea, no vomiting, yes diarrhea, no constipation, no blood in stool, yes change in bowel habits, yes abdominal pain, no hepatitis. Genitourinary: no kidney stones, no urine infection, no dysuria. Musculoskeletal: no pain, no weakness. Skin: no changing moles, no rash, no skin lumps. Neurologic: no seizures, no epilepsy, no headache. Psychiatric: no emotional or psychiatric problem. Heme/Lymph: no bleeding problems, no anemia, no blood clots, no transfusions. Allergy/Immunologic: no swollen lymph nodes/glands, no IV drug abuse. Other: Additional ROS info: Except as noted in the above Review of Systems and in the History of Present Illness, all other systems have been reviewed and are negative or noncontributory. Physical Exam Vitals & Measurements T: 36.6 ?C (Tympanic) HT: 161.29 cm HT: 161.3 cm WT: 53.6 kg WT: 52.3 kg BMI: 20.6 HEENT: normal conjunctiva, sclera clear, no scleral icterus, EOM intact, PERRLA, oral mucosa moist without lesions. Neck: trachea midline, no mass, symmetric, no thyromegaly or nodules, no adenopathy Respiratory: lungs CTA, respirations non labored. Cardiovascular: regular rate and rhythm, no murmur, no pedal edema or varicosities. Gastrointestinal: soft, non distended, no tenderness, no masses, no palpable hernias, diastasis recti no, no hepatosplenomegaly; normal bs Musculoskeletal: normal gait, digits and nails without infection, nodes, cyanosis, clubbing. Skin: no rashes, no lesions, no ulcers, no subcutaneous nodules, induration. Psychiatric/Neuro: oriented to time, place, person, judgement normal, affect appropriate for age, insight intact, no focal deficits. Tests: labs reviewed, x-rays reviewed, review of old records completed, Discussed surgical options, risks, and possible complications with patient. Assessment/Plan 1. Change in bowel habits (R19.4: Change in bowel habit) plan colonoscopy under anesthesia for further evaluation, informed consent obtained. 2. Frequent loose stools (R19.7: Diarrhea, unspecified) see # 1 3. Abdominal pain, bilateral lower quadrant (R10.31: Right lower quadrant pain) see # 1 Follow-up No qualifying data available Patient Education Colonoscopy, Adult Exercising to Stay Healthy Problem List/Past Medical History Ongoing Abdominal pain, bilateral lower quadrant BMI 20.0-20.9, adult Change in bowel habits Frequent loose stools Historical Acute gastroenteritis Epigastric pain Fatigue GERD - Gastro-esophageal reflux disease Headache Insomnia Numbness of upper limb Ovarian cyst Pancreatitis Paresthesia Pleurisy Syncope Weight loss Procedure/Surgical History Removal of mole of skin by excision (07/23/2020), Extraction of wisdom tooth (07/23/2016). Medications Acidophilus Probiotic Blend, Oral, Daily Lexapro 20 mg Tab, 20 mg= 1 tab(s), Oral, Daily Allergies No Known Allergies Social History Tobacco Never (less than 100 in lifetime) Tobacco Use:., 12/07/2020 Family History Cancer: Father. Stroke: Mother.[facility] CenterComment on above:Result Comment: Electronically Signed By: KALEB MACKEY, Ana Sanchez\jesus\Date and Time Signed: 12/07/20 17:18 [id number] Miscellaneous Notes* Result Encounter Note - Rickie Naqvi DO - 12/02/2020 10:00 AM EDT CTA head and neck are both normal. No abnormalities noted. [facility] [employer] Other Evaluation note* Diagnosis Diarrhea, unspecified type- Primary [facility] Diagnosis Generalized abdominal pain- Primary Abdominal pain, generalized documented in [facility]* Diagnosis Chronic pancreatitis, unspecified pancreatitis type (HCC)- Primary Generalized abdominal pain Abdominal pain, generalized Intestinal malabsorption, unspecified type [facility] [place] [facility]* Diagnosis Chronic recurrent pancreatitis (HCC)- Primary Chronic pancreatitis documented in this encounter [facility] note* Diagnosis Chronic pancreatitis, unspecified pancreatitis type (HCC)- Primary Generalized abdominal pain Abdominal pain, generalized Irritable bowel syndrome with diarrhea Irritable bowel syndrome History of Clostridioides difficile colitis documented in this encounter [facility] note* Diagnosis Family history of ischemic heart disease and other diseases of the circulatory system History of acute pancreatitis Personal history of other diseases of digestive system Carotid artery aneurysm (HCC) Aneurysm of artery of neck documented in this encounter [facility] noteNo assessment information [facility] Work Phone: Evaluation note* Diagnosis RUQ pain- Primary Abdominal pain, right upper quadrant History of pancreatitis Personal history of other diseases of digestive system Nausea Nausea alone Diarrhea, unspecified type History of Clostridium difficile infection Personal history of other infectious and parasitic disease documented in this encounter [facility] note* Diagnosis Generalized abdominal pain- Primary Abdominal pain, generalized RUQ pain Abdominal pain, right upper quadrant Chronic recurrent pancreatitis (HCC) Chronic pancreatitis Diarrhea, unspecified type documented in this encounter [facility] note* Diagnosis Chronic recurrent pancreatitis (HCC) Chronic pancreatitis documented in this encounter [facility] note* Diagnosis Palpitations- Primary Other supraventricular tachycardia (HCC) Cholecystitis Cholecystitis, unspecified documented in this encounter [facility] note* Diagnosis Pre-op examination- Primary Preoperative examination, unspecified Palpitations Organic anxiety syndrome Anxiety disorder in conditions classified elsewhere Cholecystitis Cholecystitis, unspecified documented in this encounter [facility] note* Diagnosis Onset Date Resolution Status Esophageal reflux acute LOCO (generalized anxiety disorder) acute Irritable bowel syndrome with diarrhea acute Vitamin D insufficiency [facility] Work Phone: [facility] [place] [facility] Diagnosis S/P gastrointestinal surgery, follow-up exam- Primary Follow-up examination, following other surgery S/P laparoscopic cholecystectomy Other postprocedural status documented in this encounter [facility] note* Diagnosis Generalized abdominal pain- Primary Abdominal pain, generalized History of acute pancreatitis Personal history of other diseases of digestive system documented in this encounter [facility] note* Diagnosis Upper abdominal pain- Primary Abdominal pain, other specified site Dyspepsia and disorder of function of stomach Dyspepsia and other specified disorders of function of stomach Dyspepsia Dyspepsia and other specified disorders of function of stomach documented in this encounter [facility] general Narrative - Reported* Type Description Date Medical History Esophageal reflux Medical History anxiety Surgical History wisdom teeth extract Hospitalization History pancreatitis [employer] Other History general Narrative - Reported* Type Description Date Medical History Esophageal reflux Medical History ANXIETY Medical History PANCREATITIS Medical History C DIFF Medical History COLON INFLAMMATION Medical History 2 [employer]ECAL [employer]ANSPL[employer]S Medical History ENDOMETRIOSIS Surgical History wisdom teeth extract Surgical History FMT 07/2022 Surgical History LAPROSOCOPY FOR ENDOMETRIOSIS Hospitalization History pancreatitis [employer] Other Reason for referral (narrative)* Diagnostic Procedure Only (Routine) - Closed Specialty Diagnoses / [facility] Diagnoses Carotid artery aneurysm (HCC) History of acute pancreatitis Procedures CTA NECK W IVCON CTA NECK, W/WO C, W/3D Rickie Naqvi DO [id number] [facility] [place] [address] Referral ID Status Reason Start Date Expiration Date V isits Requested Visits Authorized [id number] Closed Auto-Generate d Referral 11/18/2020 05/17/2021 1 1 * Diagnostic Procedure Only (Routine) - Closed Specialty Diagnoses / Procedures [facility] CT [facility] Diagnoses Family history of ischemic heart disease and other diseases of the circulatory system History of acute pancreatitis Procedures CTA HEAD WO/W IVCON CTA HEAD WWO C, W/3D Rickie Naqvi DO [address] [place] [address] [address] [facility] [place] [address] Referral ID Status Reason Start Date Expiration Date V isits Requested Visits Authorized [id number] Closed Auto-Generate d Referral 11/18/2020 12/18/2021 1 1 [facility] for referral (narrative)* Outpatient Procedure (Routine) - Closed Specialty Diagnoses / Procedures [facility] Diagnoses Chronic recurrent pancreatitis (HCC) Procedures EGD - THERAPEUTIC, EUS, OR TUBE INTERVENTIONS EDG US EXAM SURGICAL ALTER STOM DUODENUM/[place] [address] [place] [address] [facility] [place] [address] [place] [address] Referral ID Status Reason Start Date Expiration Date V isits Requested Visits Authorized [id number] Closed Auto-Generate d Referral 07/13/2023 07/13/2024 1 1 [facility] for referral (narrative)* Outpatient Procedure (Routine) - Authorized Specialty Diagnoses / Procedures [facility] Diagnoses Other supraventricular tachycardia (HCC) Palpitations Procedures ECHO ECHO TTHRC R-T 2D W/WOM-MODE COMPL SPEC&[place] [address] [place] [address] [facility] [address] [place] [address] Referral ID Status Reason Start Date Expiration Date Visits Requested Visits Authorized [id number] Authorized Auto-Generat ed Referral 10/22/2023 10/21/2024 1 1 [facility] for referral (narrative)* Diagnostic Procedure Only (Routine) - Authorized Specialty Diagnoses / Procedures [facility] To Contact [facility] Diagnoses Upper abdominal pain Dyspepsia and disorder of function of stomach Dyspepsia Procedures NM GASTRIC EMPTYING SOLID GASTRIC EMPTYING STUDY Dara Butler Jr., [address] [place] [id number] [facility] [address] [place] [address] Referral ID Status Reason Start Date Expiration Date Visits Requested Visits Authorized [id number] Authorized Auto-Generat ed Referral 12/28/2023 01/26/2025 1 1 * Diagnostic Procedure Only (Routine) - Pending Review Specialty Diagnoses / Procedures [facility] To Contact XR IMAGING Diagnoses Upper abdominal pain Dyspepsia and disorder of function of stomach Procedures XR UPPER GI SINGLE CONTRAST RADIOLOGIC EXAM UPR GI TRC SINGLE CONTRAST STUDY Dara Butler Jr., DO [address] [place] [address] [place] [address] Referral ID Status Reason Start Date Expiration Date Visits Requested Visits Authorized [id number] Pending Review Auto-Generat ed Referral 12/28/2023 01/26/2025 1 1 [facility] for visit Narrative* Diagnostic Procedure Only (Routine) - Closed Specialty Diagnoses / Procedures Referred By [facility] Referred To Contact CT IMAGING Diagnoses Carotid artery aneurysm (HCC) History of acute pancreatitis Procedures CTA NECK W IVCON CTA NECK, W/WO C, W/3D Rickie Naqvi DO [phone] [facility] [place] [address] Referral ID Status Reason Start Date Expiration Date V isits Requested Visits Authorized [id number] Closed Auto-Generate d Referral 11/18/2020 05/17/2021 1 1 [facility] for visit Narrative* Outpatient Procedure (Routine) - Closed Specialty Diagnoses / Procedures [facility] Diagnoses Chronic recurrent pancreatitis (HCC) Procedures EGD - THERAPEUTIC, EUS, OR TUBE INTERVENTIONS EDG US EXAM SURGICAL ALTER STOM DUODENUM/[place] [address] [place] [address] [facility] [address] [place] [address] Referral ID Status Reason Start Date Expiration Date V isits Requested Visits Authorized [id number] Closed Auto-Generate d Referral 07/13/2023 07/13/2024 1 1 [facility] Summary Purpose Family History Relationship Condition Age at Onset Recorded Date/T jael father Hypertension Unknown Not Specified History of stroke Unknown Advance Directives Advance Directive Response Recorded Date/ Time Advance Directives No August 26, 2019 7:34am Advance Directive Response Recorded Date/ Time Advance Directives No August 26, 2019 8:34am Reason for Referral Specialty Diagnoses / Procedures Referred By [facility] Referred To Contact CT IMAGING Diagnoses Generalized abdominal pain RUQ pain Chronic recurrent pancreatitis (HCC) Diarrhea, unspecified type Procedures CTA ABD/PEL W IVCON CT ANGIO ABD&PLVIS CNTRST MTRL W/[place] [address] [place] [address] [place] [address] Referral ID Status Reason Start Date Expiration Date Visits Requested Visits Authorized [id number] Authorized Auto-Generat ed Referral 07/12/2024 1 1 Specialty Diagnoses / Procedures Referred By [facility] Referred To Contact MR IMAGING Diagnoses Chronic recurrent pancreatitis (HCC) Procedures MRI ABDOMEN WO/W IVCON MRI ABDOMEN W/O & W/CONTRAST MATERIAL Dara Butler Jr., DO [address] [facility] [place] [address] [place] [address] Referral ID Status Reason Start Date Expiration Date Visits Requested Visits Authorized [id number] Authorized Auto-Generat ed Referral 03/16/2023 04/14/2024 1 1 Specialty Diagnoses / Procedures Referred By [facility] Referred To Contact Gastroenterology Diagnoses Generalized abdominal pain Procedures CONSULT TO GASTROENTEROLOGY OFFICE/OUTPATIENT [facility] 60-74 MINUTES Nae Ibarra MD [address] [place] [address] Referral ID Status Reason Start Date Expiration Date Visits Requested Visits Authorized [id number] Authorized PCP Requested Referral 12/23/2022 12/23/2023 1 1 Specialty Diagnoses / Procedures Referred By [facility] Referred To Contact Diagnoses Generalized abdominal pain Procedures CONSULT TO MEDICAL GENETICS - GENERAL OFFICE/OUTPATIENT [facility] 60-74 MINUTES MEDICAL GENETICS COUNSELING EACH 30 MINUTES Nae Ibarra MD [address] [place] [address] [address] Referral ID Status Reason Start Date Expiration Date Visits Requested Visits Authorized [id number] Pending Review PCP Requested Referral Auto-Generate d Referral 12/23/2022 12/23/2023 1 1 Reason Please schedule cons ult to evaluate and treat at [facility] (in [place]) for recurrent c.diff infection. (for possible fecal transplant) Diagnosis 1 C. difficile diarrhe a (A04.72) Referral Organization [facility] Referring Provider First Name Jaya Referring Provider Last Name Kati Referring Provider Specialty Gastroenter ology Referred Organization Unknown Facility Referred Provider Specialty Gastroentero logy Referral Priority Routine Chief Complaint and Reason for Visit Chief Complaint Z00.00 Chief Complaint 6 month follow up Reason for Visit Esophageal reflux LOCO (generalized anxiety disorder) Irritable bowel syndrome with diarrhea Vitamin D insufficiency Chief Complaint 6 month follow up Unknown Reason for Visit Esophageal reflux LOCO (generalized anxiety disorder) Irritable bowel syndrome with diarrhea Vitamin D insufficiency Additional Source Comments INFORMATION SOURCE (unrecogn ized section and content) DATE CREATED AUTHOR 09/15/[address] [facility] DATE CREATED AUTHOR AUTHOR'S ORGANIZ ATION 02/16/2022 [facility] DATE CREATED AUTHOR AUTHOR'S ORGANIZ ATION 03/18/2022 [facility] DATE CREATED AUTHOR AUTHOR'S ORGANIZ ATION 11/03/2022 [facility] DATE CREATED AUTHOR AUTHOR'S ORGANIZ ATION 12/04/2022 [facility] DATE CREATED AUTHOR AUTHOR'S ORGANIZ ATION 04/26/2023 [facility] DATE CREATED AUTHOR AUTHOR'S ORGANIZ ATION 11/27/2023 [facility] DATE CREATED AUTHOR AUTHOR'S ORGANIZ ATION 12/10/2023 [facility] DATE CREATED AUTHOR AUTHOR'S ORGANIZ ATION 12/28/2023 [facility] DATE CREATED AUTHOR AUTHOR'S ORGANIZ ATION 01/03/2024 [facility] REASON FOR VISIT (unrecogniz ed section and content) Reason Comments New Patient Specialty Diagnoses / Procedures Referred By [facility] t Referred To Contact Gastroenterology Diagnoses C. difficile diarrhea Jaya Parikh MD [address] [place] [address] Referral ID Status Reason Start Date Expiration Date V isits Requested Visits Authorized [id number] Pending Review 10/07/2021 11/01/2022 1 1 Reason Comments Abdominal Pain Specialty Diagnoses / Procedures Referred By [facility] Referred To Contact Gastroenterology Diagnoses Generalized abdominal pain Procedures CONSULT TO GASTROENTEROLOGY OFFICE/OUTPATIENT NEW HIGH MDM 60-74 MINUTES Nae Ibarra MD [address] [place] [address] Referral ID Status Reason Start Date Expiration Date V isits Requested Visits Authorized [id number] Closed PCP Requested Referral 12/23/2022 12/23/2023 1 1 Reason Comments Results Reason Comments APPT REMINDER APPT REMINDER CALL, LEFT MESSAGE REGARDING DIRECTIONS TO OFFICE AND # IN NEED TO CANCEL Reason Comments Follow Up Reason Comments Recheck Reason Comments Scans Reason Comments Patient Update Reason Comments Consult Specialty Diagnoses / Procedures Referred By [facility] t Referred To Contact Cardiology Diagnoses Other supraventricular tachycardia (HCC) Procedures CONSULT TO CARDIOLOGY OFFICE/OUTPATIENT NEW HIGH M[place] 60 [place] [address] [place] [address] Referral ID Status Reason Start Date Expiration Date V isits Requested Visits Authorized [id number] Closed PCP Requested Referral 10/19/2023 10/18/2024 1 1 Reason Comments Cardiac Clearance Reason Comments Palpitations ED pt update Reason Comments Patient Question PVCs and Frequent ED visits. Reason Comments Anesthesia Consult Cholecystitis Reason Comments Pre-Op Exam Reason Comments Post Op Follow Up 11/21/23 lap maricarmen Reason Onset Date Comments Refill Request 12/13/2023 Reason Comments Radiology [place] Source Comments (unrecognize d section and content) In the event this informatio n is protected by the Federal Confidentiality of Alcohol and Drug Abuse Patient Records regulations: The Federal rules restrict any use of the information to criminally investigate or prosecute any alcohol or drug abuse patient.[facility] the event this information is protected by the Federal Confidentiality of Alcohol and Drug Abuse Patient Records regulations: The Federal rules restrict any use of the information to criminally investigate or prosecute any alcohol or drug abuse patient.[facility] the event this information is protected by the Federal Confidentiality of Alcohol and Drug Abuse Patient Records regulations: The Federal rules restrict any use of the information to criminally investigate or prosecute any alcohol or drug abuse patient.[facility] the event this information is protected by the Federal Confidentiality of Alcohol and Drug Abuse Patient Records regulations: The Federal rules restrict any use of the information to criminally investigate or prosecute any alcohol or drug abuse patient.[facility] the event this information is protected by the Federal Confidentiality of Alcohol and Drug Abuse Patient Records regulations: The Federal rules restrict any use of the information to criminally investigate or prosecute any alcohol or drug abuse patient.[facility] the event this information is protected by the Federal Confidentiality of Alcohol and Drug Abuse Patient Records regulations: The Federal rules restrict any use of the information to criminally investigate or prosecute any alcohol or drug abuse patient.[facility] the event this information is protected by the Federal Confidentiality of Alcohol and Drug Abuse Patient Records regulations: The Federal rules restrict any use of the information to criminally investigate or prosecute any alcohol or drug abuse patient.[facility] the event this information is protected by the Federal Confidentiality of Alcohol and Drug Abuse Patient Records regulations: The Federal rules restrict any use of the information to criminally investigate or prosecute any alcohol or drug abuse patient.[facility] the event this information is protected by the Federal Confidentiality of Alcohol and Drug Abuse Patient Records regulations: The Federal rules restrict any use of the information to criminally investigate or prosecute any alcohol or drug abuse patient.[facility] the event this information is protected by the Federal Confidentiality of Alcohol and Drug Abuse Patient Records regulations: The Federal rules restrict any use of the information to criminally investigate or prosecute any alcohol or drug abuse patient.[facility] the event this information is protected by the Federal Confidentiality of Alcohol and Drug Abuse Patient Records regulations: The Federal rules restrict any use of the information to criminally investigate or prosecute any alcohol or drug abuse patient.[facility] the event this information is protected by the Federal Confidentiality of Alcohol and Drug Abuse Patient Records regulations: The Federal rules restrict any use of the information to criminally investigate or prosecute any alcohol or drug abuse patient.[facility] the event this information is protected by the Federal Confidentiality of Alcohol and Drug Abuse Patient Records regulations: The Federal rules restrict any use of the information to criminally investigate or prosecute any alcohol or drug abuse patient.[facility] the event this information is protected by the Federal Confidentiality of Alcohol and Drug Abuse Patient Records regulations: The Federal rules restrict any use of the information to criminally investigate or prosecute any alcohol or drug abuse patient.[facility] the event this information is protected by the Federal Confidentiality of Alcohol and Drug Abuse Patient Records regulations: The Federal rules restrict any use of the information to criminally investigate or prosecute any alcohol or drug abuse patient.[facility] the event this information is protected by the Federal Confidentiality of Alcohol and Drug Abuse Patient Records regulations: The Federal rules restrict any use of the information to criminally investigate or prosecute any alcohol or drug abuse patient.[facility] the event this information is protected by the Federal Confidentiality of Alcohol and Drug Abuse Patient Records regulations: The Federal rules restrict any use of the information to criminally investigate or prosecute any alcohol or drug abuse patient.[facility] the event this information is protected by the Federal Confidentiality of Alcohol and Drug Abuse Patient Records regulations: The Federal rules restrict any use of the information to criminally investigate or prosecute any alcohol or drug abuse patient.[facility] the event this information is protected by the Federal Confidentiality of Alcohol and Drug Abuse Patient Records regulations: The Federal rules restrict any use of the information to criminally investigate or prosecute any alcohol or drug abuse patient.[facility]In the event this information is protected by the Federal Confidentiality of Alcohol and Drug Abuse Patient Records regulations: The Federal rules restrict any use of the information to criminally investigate or prosecute any alcohol or drug abuse patient.[facility]In the event this information is protected by the Federal Confidentiality of Alcohol and Drug Abuse Patient Records regulations: The Federal rules restrict any use of the information to criminally investigate or prosecute any alcohol or drug abuse patient.[facility] the event this information is protected by the Federal Confidentiality of Alcohol and Drug Abuse Patient Records regulations: The Federal rules restrict any use of the information to criminally investigate or prosecute any alcohol or drug abuse patient.[facility] the event this information is protected by the Federal Confidentiality of Alcohol and Drug Abuse Patient Records regulations: The Federal rules restrict any use of the information to criminally investigate or prosecute any alcohol or drug abuse patient.[facility]In the event this information is protected by the Federal Confidentiality of Alcohol and Drug Abuse Patient Records regulations: The Federal rules restrict any use of the information to criminally investigate or prosecute any alcohol or drug abuse patient.[facility] the event this information is protected by the Federal Confidentiality of Alcohol and Drug Abuse Patient Records regulations: The Federal rules restrict any use of the information to criminally investigate or prosecute any alcohol or drug abuse patient.[facility]In the event this information is protected by the Federal Confidentiality of Alcohol and Drug Abuse Patient Records regulations: The Federal rules restrict any use of the information to criminally investigate or prosecute any alcohol or drug abuse patient.[facility]In the event this information is protected by the Federal Confidentiality of Alcohol and Drug Abuse Patient Records regulations: The Federal rules restrict any use of the information to criminally investigate or prosecute any alcohol or drug abuse patient.[facility]In the event this information is protected by the Federal Confidentiality of Alcohol and Drug Abuse Patient Records regulations: The Federal rules restrict any use of the information to criminally investigate or prosecute any alcohol or drug abuse patient.[facility]In the event this information is protected by the Federal Confidentiality of Alcohol and Drug Abuse Patient Records regulations: The Federal rules restrict any use of the information to criminally investigate or prosecute any alcohol or drug abuse patient.[facility]In the event this information is protected by the Federal Confidentiality of Alcohol and Drug Abuse Patient Records regulations: The Federal rules restrict any use of the information to criminally investigate or prosecute any alcohol or drug abuse patient.[facility] Care Teams (unrecognized sec tion and content) Team Status: Active Member Role Status Dates Analia Holliday DNP Primary Care Provider Active Team Status: Active Member Role Status Dates Analia Holliday DNP Primary Care Provider Active Start: November 15, 2023 SHELBY Foley Attending Provider Active Start: November 15, 2023 Team Status: Inactive Member Role Status Dates Analia Holliday DNP Primary Care Provid er, Attending Provider Active Start: November 29, 2023 End: November 29, 2023 [employer] Relationship Specialty Start Date End Date Colby Augustin MD PCP - General Family Medicine 11/10/20 [employer] Relationship Specialty Start Date End Date Colby Augustin MD PCP - General Family Medicine 11/10/20 [employer] Relationship Specialty Start Date End Date Colby Augustin MD PCP - General Family Medicine 11/10/20 [employer] Relationship Specialty Start Date End Date Colby Augustin MD PCP - General Family Medicine 11/10/20 [employer] Relationship Specialty Start Date End Date Colby Augustin MD PCP - General Family Medicine 11/10/20 [employer] Relationship Specialty Start Date End Date Colby Augustin MD PCP - General Family Medicine 11/10/20 [employer] Relationship Specialty Start Date End Date Colby Augustin MD PCP - General Family Medicine 11/10/20 [employer] Relationship Specialty Start Date End Date Colby Augustin MD PCP - General Family Medicine 11/10/20 Team Status: Inactive Member Role Status Dates Analia Holliday , DNP Primary Care Provider, Attending Provider Active [employer] Relationship Specialty Start Date End Date Analia Holliday CNP [address] [place] [phone] PCP - General Family Medicine 06/06/23 [employer] [employer]ocker [employer] Polisher Relationship Specialty Start Date End Date Analia Holliday CNP [address] [place] [phone] PCP - General Family Medicine 06/06/23 [employer] Wheel Blocker And Polisher Relationship Specialty Start Date End Date Analia Holliday CNP [address] [place] [phone] PCP - General Family Medicine 06/06/23 [employer] Wheel Blocker And Polisher Relationship Specialty Start Date End Date Analia Holliday CNP [address] [place] [phone] PCP - General Family Medicine 06/06/23 [employer] Wheel Blocker And Polisher Relationship Specialty Start Date End Date Analia Holliday CNP [address] [place] [phone] PCP - General Family Medicine 06/06/23 [employer] Wheel Blocker And Polisher Relationship Specialty Start Date End Date Analia Holliday, ANALYSIS MGR [address] [place] [phone] PCP - General Family Medicine 06/06/23 [employer] Wheel Blocker And Polisher Relationship Specialty Start Date End Date Analia Holliday, ANALYSIS MGR [address] [place] [phone] PCP - General Family Medicine 06/06/23 [employer] Wheel Blocker And Polisher Relationship Specialty Start Date End Date Analia Holliday, ANALYSIS MGR [address] [place] [phone] PCP - General Family Medicine 06/06/23 [employer] Wheel Blocker And Polisher Relationship Specialty Start Date End Date Analia Holliday, ANALYSIS MGR [address] [place] [phone] PCP - General Family Medicine 06/06/23 [employer] Wheel Blocker And Polisher Relationship Specialty Start Date End Date Analia Holliday, ANALYSIS MGR [address] [place] [phone] PCP - General Family Medicine 06/06/23 [employer] Wheel Blocker And Polisher Relationship Specialty Start Date End Date Analia Holliday, ANALYSIS MGR [address] [place] [phone] PCP - General Family Medicine 06/06/23 [employer] Wheel Blocker And Polisher Relationship Specialty Start Date End Date Analia Holliday, ANALYSIS MGR [address] [place] [phone] PCP - General Family Medicine 06/06/23 [employer] Blocker And Polisher Relationship Specialty Start Date End Date Analia Holliday, ANALYSIS MGR [address] [place] [phone] PCP - General Family Medicine 06/06/23 Team Status: Active Member Role Status Dates Analia Holliday DNP Primary Care Provider Active Start: December 27, 2023 Dara Butler DO Attending Provider Active Sta rt: December 27, 2023 Team Status: Inactive Member Role Status Dates Ana Bolton DO Attending Provider Active Start: January 01, 2024 End: January 01, 2024 Goals (unrecognized section and content) Goals may be documented in a n alternate section FOR RECORDS PERTAINING TO PATIENTS WHO ARE OR HAVE BEEN ENROLLED IN A CHEMICAL DEPENDENCY/SUBSTANCEABUSE PROGRAM, SOME INFORMATION MAY BE OMITTED. This clinical summary was aggregated from multiple sources. Caution should be exercised in using it in the provision of clinical care. This summary normalizes information from multiple sources, and as a consequence, information in this document may materially change the coding, format and clinical context of patient data. In addition, data may be omitted in some cases. CLINICAL DECISIONS SHOULD BE BASED ON THE PRIMARY CLINICAL RECORDS. [facility]. provides no warranty or guarantee of the accuracy or completeness of information in this document.
[2024-02-08 15:09] LABS: Age Gdln ACOG Testing Note (.); IGP, rfx Aptima HPV ASCU Note (.)
== END 2024-02-04 20:42 | disposition home or self-care (01) ==
LOC: LAB 20:41
PROVIDERS: PCP Family Medicine; Visit Provider Obstetrics & Gynecology
DX: Z01.419 Encounter for gynecological examination (general) (routine) without abnormal findings (principal)
CPT/HCPCS: 88175

== ENCOUNTER 2024-03-24 20:11 | Emergency (ER) | payer BC, SELFPAY ==
[2024-03-24 20:15] VITALS: BP 116/66; PULSE 75; TEMP 37.4; O2SAT 100; BMI 18.9
--- OUTSIDE RECORDS SUMMARY | 2024-03-24 20:21 | XMS_ITS | CCD ---
Author Organization [facility] CliniSyfl Care Team Providers Care Hemodialysis Patient Care Specialist Name Role Phone Sruthi Arlene Unavailable Jaya Parikh Unavailable SELF, REFERRED Primary Care Unavailable SELF, REFERRED Referring Unavailable ZENON HUGGINS Admitting Unavailable ZENON HUGGINS Attending Unavailable Unavailable Primary Care Provider UnavailPHANI De Paz Attending Unavailable JAYA PARIKH Referring Unavailable CELY NELSON Attending Unavailable KOBEIKELECHI PIRESALLANA LILIA Admitting Unavailable KOBEILEXIS, TERE Attending Unavailable ROSENDAROBB REYGHAN Referring Unavailable KOBEIKELECHI PIRESALLAH Attending Unavailable KOBEISSY, ABDALLAH Referring Unavailable ROSENDALE, REYGHAN Attending Unavailable ROSENDAROBB, MIOYGHAN Attending Unavailable Silvano Reyez Unavailable HEMEYER ., DR MATA Admitting Unavailable [...] Admitting Unavailable MISC, DR HELLER Attending Unavailable KATI, JAYA Primary Care Unavailable MISC, DR HELLER [...] HEMEYER ., DR MATA Primary Care Unavailable [place], DR DARA Ledezma Consulting Unavailable MISC, DR [...] Unavailable HEMEYER ., EDLETICIA Primary Care Unavailable JAYA PARIKH Consulting Unavailable MISC, DR HELLER Admitting Unavailable [...] HUFF Consulting Unavailable HEMEYER ., DR MATA Admitting Unavailable HEMEYER ., DR MATA Attending Unavailable HEMEYER ., EDLETICIA Primary Care Unavailable MISC, DR HELLER Admitting Unavailable MISC, DR HELLER Attending Unavailable HEMEYER ., EDLETICIA Primary Care Unavailable MISC, DR HELLER Consulting Unavailable HOY, COLBY Admitting Unavailable COLBY AUGUSTIN Attending Unavailable MARYSOLY, COLBY Primary Care Unavailable HOY, COLBY Consulting Unavailable DIARMANDO, JAYA Primary Care Unavailable TUCKER, DR MARIANNE Garcia Admitting Unavailabl e REINECK, DR MARIANNE Garcia Attending Unavailabl e REINECK, DR MARIANNE Garcia Consulting Unavailabl e MISC, DR HELLER Admitting Unavailable MISC, DR HELLER Attending Unavailable HOY, COLBY Primary Care Unavailable MISC, DR HELLER Consulting Unavailable Colby Augustin MD Primary Care Provider Jose Luis Hernandez Attending Unavailab Jose Luis Villasenor Admitting Unavailab le NON STAFF Primary Care Unavailable Provider, Ordering Unavailable Analia Holliday Unavailable DAVID Holliday Primary Care Provider DAVID Holliday Analia Attending Provider [phone] Kaple INTERNAL RECRUITER, Analia M Primary Care Provider [phone] Kaprobb INTERNAL RECRUITER, Analia M Primary Care Provider [phone] SEEMA DAVIS Referring Unavailable KAPLE, ANALIA M Primary Care Unavailable VIKTORIA CAUSEY Referring Unavailable KAPLE, ANALIA M Primary Care Unavailable DO Ana Bolton Attending Provider Ana Bolton Admitting Unavailable Ana Bolton Attending Unavailable Kaple, Analia Admitting Unavailable Kaple, Analia Primary Care Unavailable Kaple, Analia Attending Unavailable Jose Luis Hernandez Attending Unavailab le MCKAYLA STAFF Primary Care Unavailable Jose Luis Hernandez Admitting Unavailab REFUGIO Quintero Attending Unavailable KAPLE, ANALIA M Primary Care Unavailable SINAN, KHALED Referring Unavailable ELIF HESS Attending Unavailable DARA BUTLER Referring Unavailable KAPLE, ANALIA M Primary Care Unavailable KAPLE, ANALIA M Primary Care Unavailable SEEMA DAVIS Admitting Unavailable SEEMA DAVIS Attending Unavailable DARA BUTLER Referring Unavailable KAPLE, ANALIA M Primary Care Unavailable DARA BUTLER Referring Unavailable HOY, COLBY M Primary Care Unavailable DARA BUTLER Referring Unavailable HOY, COLBY M Primary Care Unavailable HOY, COLBY M Primary Care Unavailable NAE IBARRA Referring Unavailable HOY, COLBY M Primary Care Unavailable SINAN, KHALED Referring Unavailable KAPLE, ANALIA M Primary Care Unavailable KAPLE, ANALIA M Primary Care Unavailable SEDRICK RUSHING Referring Unavailable KAPLE, ANALIA M Referring Unavailable KAPLE, ANALIA M Primary Care Unavailable ARIELLA MCCOY Attending Unavailable KAPLE, ANALIA M Primary Care Unavailable Dara Butler Jr Referring Unavailable KAPLE, ANALIA M Primary Care Unavailable Dara Butler Jr Attending Unavailable KAPLE, ANALIA M Primary Care Unavailable BOLA BRADEN Attending Unavailable HOY, COLBY M Primary Care Unavailable Dara Butler Jr Referring Unavailable HOY, COLBY M Primary Care Unavailable KAPLE, ANALIA M Primary Care Unavailable HOY, COLBY M Primary Care Unavailable COLBY AUGUSTIN Primary Care Unavailable Dara Butler Jr Attending Unavailable SEEMA DAVIS Attending Unavailable SEEMA DAVIS Referring Unavailable ANALIA HOLLIDAY Primary Care Unavailable ANALIA HOLLIDAY Primary Care Unavailable SEEMA DAVIS Referring Unavailable SEDRICK RUSHING Attending Unavailable ISABELLE MENON Attending Unavailable ANALIA HOLLIDAY Primary Care Unavailable Allergies Allergy Classification Reported Allergen(s) Allergy Type Date of Onset Reaction(s) Facility Nitroimidazoles (antibiotic) (1 source) metroNIDAZOLE Drug Allergy 1 Mental Status Change, Diarrhea, GI Upset, Hives, Other: See Comments, Rash, Shortness of Breath, Unknown, Vomiting [facility] (20 sources) metroNIDAZOLE; Translations: [METRONIDAZOLE] Drug Allergy 1 Mental Status Change, Diarrhea, GI Upset, Hives, Other: See Comments, Rash, Shortness of Breath, Unknown, Vomiting [facility] (1 source) metroNIDAZOLE Drug Allergy 3 [facility] Repository (8 sources) Vancomycin Drug Allergy Unknown [employer] Other (1 source) Vancomycin Drug Allergy 4 [facility] Repository Medications Current Medications Medication Drug Class(es) Dates Sig (Normalized) Sig (Original) amitriptyline hydrochloride 25 mg oral tablet (19 sources) Tricyclic Antidepressant Start: 12-28-2023 End: 03-27-2024 [...] tablet by joel th daily at bedtime. dicyclomine hydrochloride 10 mg oral capsule (20 sources) Anticholinergic Start: 11-29-19 take 1 capsule by mouth three times [...] daily as needed. Take 1 tablet by joel th q 8 HR. escitalopram 10 mg oral tablet (20 sources) Serotonin Reuptake Inhibitor Start: take 10 mg by mouth once daily Escitalopram Oxalate Active 10 MG PO Daily March 19, 2024 1:44pm Start: 01-16-2024 End: 03-19-2024 take 5 mg by mouth once daily Escitalopram Oxalate Dis continued 5 MG PO Daily 90 January 16, 2024 12:00am March 19, 2024 1:45pm Start: 11-29-2023 End: 01-16-2024 take 1 tablet by mouth once daily Escitalopram Oxalate Discontinued 5 MG PO Daily November 29, 2023 11:36am January 16, 2024 10:59pm [employer] tablet Orally Once a day; Note: [...] day PT PICKS THE SCRIPT TODAY Active ondansetron 4 mg oral tablet (20 sources) Serotonin-3 Receptor Antagonist Start: 09-01-2022 ondansetron (ZOFRAN) 4 mg tablet Take 4 mg by mouth as needed. 0 09/01/2022 Active Comment on above: Take 4 mg by mouth a s needed. pantoprazole 40 mg delayed release oral tablet (6 sources) Proton Pump Inhibitor Start: 01-22-2024 take [...] 12/28/2023 Active predniSONE 20 mg oral tablet (9 sources) Start: 04-04-2023 End: 04-14-2023 take 1 [...] above: Take 1 tablet by joel th once daily for 14 days. Take 1 tablet by [facility] once daily for 10 days. Completed/Discontinued Medications Medication Drug Class(es) Dates Sig (Normalized) Sig (Original) amylase 060483 unt / lipase 41838 unt / protease 42575 unt delayed release oral capsule (16 sources) Start: 06-06-2023 End: 10-22-2023 take 2 capsules by mouth twice daily at mealtime gkoblu-qqvlshcg-tqa lase (CREON) 24,000-76,000 -120,000 unit delayed release capsule Take 2 capsules by mouth two times a day with meals. 120 capsule 0 06/06/2023 10/22/2023 Discontinued Start: 02-06-2023 End: 05-22-2023 take 1 capsule by mouth three times daily at mealtime cqgsxx-botfuwhc-omrtzaa (ZENPEP) 40,000-126,000- 168,000 unit delayed release capsule Indications: Generalized abdominal pain , Chronic pancreatitis, unspecified pancreatitis type (HCC) , Intestinal malabsorption, unspecified type Take 1 capsule by mouth three times daily with meals. 90 capsule 2 02/06/2023 05/22/2023 Discontinued Comment on above: Take 1 capsule by mo [facility] three times daily with meals. Take 2 capsules by [facility] two times a day with meals. chlordiazePOXIDE hydrochloride 5 mg / clidinium bromide 2.5 mg oral capsule (8 sources) Anticholinergic, Benzodiazepine Start: 2022 End: 2022 take 1 capsule by mouth three times daily at mealtime, then take 5 capsules by mouth once chlordiazePOXIDE-clid inium (LIBRAX) 5-2.5 mg per capsule TAKE 1 CAPSULE BY MOUTH THREE TIMES DAILY WITH MEALS 90 capsule 1 05/01/2023 05/22/2023 Discontinued Comment on above: Take 1 capsule by mo [facility] three times daily with meals. TAKE 1 CAPSULE BY [facility] THREE TIMES DAILY WITH MEALS cholecalciferol 0.05 mg oral capsule (4 sources) Vitamin D Start: 2023 End: 2023 take 1 capsule by mouth once daily Cholecalciferol (Vitamin D3) Discontinued 2000 UNIT PO Daily November 29, 2023 12:00am March 19, 2024 1:34pm FreeTextSi capsule Orally Once a day; Note: Source Status: Start; Refills: 4; Provider: Miya Moise Start: 06-11-2023 take 1 capsule by mo [facility] every twenty-four hours Vitamin D3 50 MCG (1999 UT) 1 capsule Orally Once a day for 30 days May, Active cyclobenzaprine hydrochloride 10 mg oral tablet (4 sources) Muscle Relaxant Start: 10-31-2020 End: 03-19-2024 take 10 mg by mouth three times daily Cyclobenzaprine Discontinued 10 MG PO Three times daily October 31, 2020 12:00am March 19, 2024 1:35pm diclofenac sodium 50 mg delayed release oral tablet (4 sources) Nonsteroidal Anti-inflammatory Drug Start: 10-31-2020 End: 11-29-2023 take 50 mg by mouth every twelve hours Diclofenac Sodium Discontinued 50 MG PO Q12H October 31, 2020 12:00am November 29, 2023 11:18am ergocalciferol 1.25 mg oral capsule (10 sources) Provitamin D2 Compound Start: 12-14-2022 End: 05-22-2023 ergocalciferol 50,000 unit capsule (VITAMIN D2, DRISDOL) [...] SUNDAY) FOR A TOTAL OF 8 WEEKS. hydrOXYzine hydrochloride 25 mg oral tablet (4 sources) Antihistamine Start: 10-31-2020 End: 03-19-2024 take 25 mg by mouth every six hours Hydroxyzine Hcl Discontinued 25 MG PO Q6H October 31, 2020 12:00am March 19, 2024 1:35pm 12 hr hyoscyamine sulfate 0.375 mg extended release oral tablet (5 sources) Start: 12-12-2023 End: 03-12-2024 take 1 tablet by mouth twice daily [...] above: Take 1 tablet by joel th twice daily. iv contrast (will be provided [...] guidelines link. lidocaine 0.05 mg/mg medicated patch (4 sources) Antiarrhythmic, Amide Local Anesthetic Start: 11-01-19 End: 11-29-19 apply 1 dose topically once daily Lidocaine Discontinued 1 PATCH TOPICAL Daily October 31, 2020 12:00am November 29, 2023 11:18am leave on most painful area for up to 12 hrs sucralfate 1000 mg oral tablet (2 sources) Aluminum Complex Start: 12-24-19 End: 12-28-19 take 1 tablet by mouth three times daily sucralfate (CARAFATE) 1 gram tablet Take 1 tablet by mouth three times a day. 90 tablet 2 12/24/2023 12/28/2023 Discontinued Problems Active Problems Problem Classification Problem Date Documented Da te Episodic/Chronic Abdominal pain (20 sources) Right upper quadrant pain; Translations: [Right upper quadrant pain] Onset: 3 Episodic Anxiety disorders (9 sources) Generalized anxiety disorder; Translations: [Generalized anxiety disorder] Chronic Aortic; peripheral; and visceral artery aneurysms (1 source) Carotid artery aneurysm; Translations: [Aneurysm of carotid artery] 12-02-2020 Chronic Biliary tract disease (1 source) Cholecystitis, unspecified; Translations: [Cholecystitis] Onset: 4 Episodic Cardiac dysrhythmias (1 source) Supraventricular tachycardia; Translations: [Other supraventricular tachycardia (HCC)] 10-22-2023 Chronic Esophageal disorders (5 sources) Gastroesophageal reflux disease; Translations: [Gastro-esophageal reflux [...] Translations: [Nausea] Onset: 3 Episodic Nutritional deficiencies (7 sources) Vitamin D deficiency; Translations: [Vitamin D deficiency, unspecified] Chronic Other aftercare (1 source) Surgical follow-up; Translations: [Encounter for follow-up examination after completed treatment for conditions other than malignant neoplasm] 12-05-2023 Episodic Other connective tissue disease (4 sources) Pain in upper limb; Translations: [Pain in arm, unspecified] 10-31-2020 Episodic Other diseases of kidney and ureters (1 source) Cyst of kidney, acquired; Translations: [CYST OF KIDNEY ACQUIRED] Onset: 3 Episodic Other disorders of stomach and duodenum (3 sources) Disorder of function of stomach; Translations: [Disease of stomach and duodenum, unspecified] 12-28-2023 Episodic Other disorders of stomach and duodenum (1 source) Disease of stomach and duodenum, unspecified; Translations: [Dyspepsia and disorder of function of stomach] Onset: 4 Episodic Other gastrointestinal disorders (17 sources) Irritable bowel syndrome with diarrhea; Translations: [...] circulatory system] 12-02-2020 Episodic Unclassified (1 source) Encounter for general adult medical examination without abnormal findings; Translations: [Encounter for general adult medical examination without abnormal findings] Onset: 3 Unclassified (1 source) Other supraventricular tachycardia (HCC); Translations: [Other supraventricular tachycardia (HCC)] Onset: 4 Past or Other Problems Problem Classification Problem Date Documented Da te Episodic/Chronic Allergic reactions (20 sources) Urticaria; Translations: [Urticaria, unspecified] Onset: 12-09-2021 12-09-2021 Episodic Anxiety disorders (13 sources) Organic anxiety disorder; 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] Onset: 11-15-2023 11-15-2023 Episodic Bacterial infection; unspecified site (2 sources) Other bacterial infections of unspecified site; Translations: [Other bacterial infections of unspecified site] Onset: 08-02-2022 Episodic Cardiac dysrhythmias (15 sources) Palpitations; Translations: [Palpitations] Onset: 11-07-2023 10-22-2023 Episodic Fever of unknown origin (4 sources) [...] 12-09-2021 12-09-2021 Episodic Other infections; including parasitic (19 sources) Recurrent infectious disease; Translations: [Unspecified infectious [...] Test Name Value Interpretation Reference Range Facility C diff Tox gens Stl Ql RUCHI+p rae 03-13-2024 C. difficile toxin genes RUCHI+probe Ql (Stl) Negative Normal Negative for C. difficile toxin by PCR [facility] Comment on above: Order Comment: Speci men Type: STOOL SPECIMENOrdering Facility: [facility] Address: [address] [place] [address] Performed By: #### 5 [id number] ####[facility] LABCLIA [id number] [facility] [address] CNOVon 02-26-2024 CNOV Office Visit (GGENMN ) ----- CLINTONROSA Newberry ([id number]) 2000 F Date Time Provider Department 02/26/24 3:30 PM BOLA BRADEN GGENMN During your visit today, we recorded the following information about you: Temperature Pulse Blood pressure Weight 98.2 degrees 65/minute 117/68 51.3 kg Height Last Period 1.626 m 01/30/24 Eva Gray MA 02/26/2024 3:23 PM Signed What is the reason for your visit today? Consult Who is your referring physician? None Are you having poor oral intake? NO Have you had unintentional weight loss of 15 lbs/7 Kg in the last 3-6 months? NO Bowels: diarrhea or regular Wound: None Temperature: No Drains: No Bola Braden MD 02/26/2024 6:47 PM Signed error Bola Braden MD 02/26/2024 6:47 PM Signed New Patient/Consult REASON FOR VISIT Rosa Alonzo is a 23 year old female who is scheduled for a consult at the request of Dara Butler DO. CHIEF COMPLAINT Pancreatitis, 2nd opinion My final recommendations will be communicated back to the requesting physician by the way of the shared medical record, fax, or via US Mail. HISTORY OF PRESENT ILLNESS At age 14 had acute pancreatitis. Hospitalized. No records available for review. The cause is unclear. For the past 2 years postprandial right sided back pain and poorly formed stools. She also has epigastric pain. This pain is unrelated to meals. She is losing weight in past 2 years, 15 pounds. She has decreased appetite. No relief of the back pain with removal of gallbladder. EUS did not reveal changes of chronic pancreatitis. She has a history of c diff and s/p fecal transplant x 2. Fecal elastase negative. No response to pancreatic enzymes. No relief with amitriptyline. Bentyl helps. Last 10 Encounter Wt Readings: Date: Wt: 02/26/2024 51.3 kg (113 lb) 12/05/2023 50.8 kg (112 lb) 11/15/2023 53 kg (116 lb 13.5 oz) 10/22/2023 52.6 kg (116 lb) 10/19/2023 52.9 kg (116 lb 8.2 oz) 06/06/2023 51.3 kg (113 lb) 05/22/2023 52.3 kg (115 lb 4.8 oz) 02/06/2023 51.3 kg (113 lb) 12/08/2022 51.4 kg (113 lb 6.4 oz) 12/09/2021 53.1 kg (117 lb) PERTINENT PRIOR DIAGNOSTIC TESTING Luminal: UPPER EUS - 09/06/2023 Findings: ENDOSONOGRAPHIC FINDING: : There was no [...] mildly to moderately stenotic, as visualized endosonographically. Extra Luminal: MRI ABDOMEN WO/W IVCON - 04/13/2023 COMPARISON: CT abdomen pelvis 10/18/2022 RESULT: Motion degraded examination. Pancreas: Pancreas is [...] ascites. Osseous structures: No aggressive osseous lesions. Labs: Latest Reference Range AND Units 12/27/23 09:42 Alkaline Phosphatase 34 - 123 U/L 53 ALT 7 - 38 U/L 9 AST 13 - 35 U/L 14 Anion Gap 8 - 15 mmol/L 6 (L) Amylase 30 - 104 U/L 44 Lipase 16 - 61 U/L 22 MEDICATIONS Current Outpatient Medications Medication Sig Dispense Refill pantoprazole DR (PROTONIX) 40 mg tablet TAKE 1 TABLET BY MOUTH EVERY DAY 90 tablet 1 amitriptyline (ELAVIL) 25 mg tablet Take 1 tablet by mouth daily at bedtime. 30 tablet 2 escitalopram oxalate (LEXAPRO) 10 mg tablet Take 5 mg by mouth once daily. ondansetron (ZOFRAN) 4 mg tablet Take 4 mg by mouth as needed. No current facility-administered medications for this visit. ALLERGIES ALLERGIES Allergen Reactions Metronidazole Mental Status Change, Diarrhea, GI Upset, Hives, Other: See Comments, Rash, Shortness of Breath, Unknown, Vomiting PAST MEDICAL HISTORY PAST MEDICAL HISTORY No date: Pancreatitis PAST SURGICAL HISTORY PAST SURGICAL HISTORY No date: COLONOSCOPY (more content not included)... Normal [facility] Gastrointestinal tract up per Views W barium contrast Aime 02-11-2024 IMPRESSION: Mild gastroesophageal reflux and mild esophageal dysmotility. Otherwise, unremarkable upper GI series. Cigarette Book Maker: FRANCISCO Transcribe Date/Time: Feb 11 2024 11:34A Dictated by : ANJALI HALEY MD This examination was interpreted and the report reviewed and electronically signed by: ANJALI HALEY MD on Feb 11 2024 4:03PM EST [facility] * * *Final Report* * * DATE OF EXAM: Feb 11 2024 9:47AM FVX 5380 - XR UPPER GI SINGLE CONTRAST / PROCEDURE REASON: multiple diagnoses * * * * Physician Interpretation * * * * HISTORY: Upper abdominal pain Dyspepsia and disorder of function of stomach Dyspepsia and disorder of function of stomach TECHNIQUE: XR UPPER GI SINGLE CONTRAST Contrast: ORAL administration of 177ml ml of EZPAQUE Fluoroscopic Radiation Summary: Plane A, Air Kerma: 7.8 mGy Dose Area Product (DAP): Fluoro time: 1:01 min:sec COMPARISON: None RESULT: The esophagus is normal in course and caliber. No evidence of esophagitis, esophageal ring, or esophageal stricture. No hiatal hernia. Small volume gastroesophageal reflux is elicited with provocative maneuvers. Mildly delayed esophageal clearing with some to and fro motion of retained esophageal contrast. No tertiary contractions or esophageal spasm. The stomach and duodenum are unremarkable. There is no gastric outlet obstruction. No evidence of mass or ulceration however, there is somewhat limited assessment of the gastric cardia/fundus. [facility] Provider, [facility] Natalya [facility] - 02/11/2024 * * *Final Report* * * DATE OF EXAM: Feb 11 2024 9:47AM FVX [id number] - XR UPPER GI SINGLE CONTRAST / PROCEDURE REASON: multiple diagnoses * * * * Physician Interpretation * * * * HISTORY: Upper abdominal pain Dyspepsia and disorder of function of stomach Dyspepsia and disorder of function of stomach TECHNIQUE: XR UPPER GI SINGLE CONTRAST Contrast: ORAL administration of 177ml ml of EZPAQUE Fluoroscopic Radiation Summary: Plane A, Air Kerma: 7.8 mGy Dose Area Product (DAP): Fluoro time: 1:01 min:sec COMPARISON: None RESULT: The esophagus is normal in course and caliber. No evidence of esophagitis, esophageal ring, or esophageal stricture. No hiatal hernia. Small volume gastroesophageal reflux is elicited with provocative maneuvers. Mildly delayed esophageal clearing with some to and fro motion of retained esophageal contrast. No tertiary contractions or esophageal spasm. The stomach and duodenum are unremarkable. There is no gastric outlet obstruction. No evidence of mass or ulceration however, there is somewhat limited assessment of the gastric cardia/fundus. IMPRESSION IMPRESSION: Mild gastroesophageal reflux and mild esophageal dysmotility. Otherwise, unremarkable upper GI series. Cigarette Book Maker: FRANCISCO Transcribe Date/Time: Feb 11 2024 11:34A Dictated by : ANJALI HALEY MD This examination was interpreted and the report reviewed and electronically signed by: ANJALI HALEY MD on Feb 11 2024 4:03PM EST [facility] Radiology Study observation (narrative) [facility] RF Gastrointestinal tract up per Views W barium contrast POOrdered By: [facility] Provider on 02-11-2024 [facility] XR UPPER GI SINGLE CONTRASTo n 02-11-2024 XR UPPER GI SINGLE CONTRAST * * *Final Report* * * DATE OF EXAM: Feb 11 2024 9:47AM FVX [id number] - XR UPPER GI SINGLE CONTRAST / PROCEDURE REASON: multiple diagnoses * * * * Physician Interpretation * * * * HISTORY: Upper abdominal pain Dyspepsia and disorder of function of stomach Dyspepsia and disorder of function of stomach TECHNIQUE: XR UPPER GI SINGLE CONTRAST Contrast: ORAL administration of 177ml ml of EZPAQUE Fluoroscopic Radiation Summary: Plane A, Air Kerma: 7.8 mGy Dose Area Product (DAP): Fluoro time: 1:01 min:sec COMPARISON: None RESULT: The esophagus is normal in course and caliber. No evidence of esophagitis, esophageal ring, or esophageal stricture. No hiatal hernia. Small volume gastroesophageal reflux is elicited with provocative maneuvers. Mildly delayed esophageal clearing with some to and fro motion of retained esophageal contrast. No tertiary contractions or esophageal spasm. The stomach and duodenum are unremarkable. There is no gastric outlet obstruction. No evidence of mass or ulceration however, there is somewhat limited assessment of the gastric cardia/fundus. IMPRESSION: Mild gastroesophageal reflux and mild esophageal dysmotility. Otherwise, unremarkable upper GI series. Cigarette Book Maker: FRANCISCO Transcribe Date/Time: Feb 11 2024 11:34A Dictated by : ANJALI HALEY MD This examination was interpreted and the report reviewed and electronically signed by: ANJALI HALEY MD on Feb 11 2024 4:03PM EST [id number] Normal [facility] NM GASTRIC EMPTYING SOLIDon 01-30-2024 NM GASTRIC EMPTYING SOLID * * *Final Report* * * DATE OF EXAM: Jan 30 2024 1:51PM [facility] 0017 - NM GASTRIC EMPTYING SOLID / PROCEDURE REASON: multiple diagnoses * * * * Physician Interpretation * * * * SOLID MEAL GASTRIC EMPTYING STUDY 01/30/2024 2:09 PM: CLINICAL HISTORY: 23 years old Female patient with history of upper abdominal pain, dyspepsia. TECHNIQUE: 1.1 mCi Tc-99m Sulfur Colloid was given orally in a meal consisting of 4 ounces of egg beater and 4 ounces of water., consumed over 5 to 10 minutes. 1-minute posterior and anterior spot images of the stomach region at times 0, 1, 2, and 4 hours were obtained. Geometric mean was used to plot a time-activity curve. RESULT: Solid study demonstrates: - 70% gastric retention at 1 hour (normal range, 37-90%), - 47% retention at 2 hours (normal range, 30-60%), and - 4% retention at 4 hours (normal range, 0-10%). IMPRESSION: Normal rate of gastric emptying of a solid meal. However patient consumed less than the standard meal, which lowers the sensitivity of the study. Cigarette Book Maker: [employer] Transcribe Date/Time: Jan 30 2024 2:09P Dictated by : JOSELUIS MORA MD This examination was interpreted and the report reviewed and electronically signed by: JOSELUIS MORA MD on Jan 30 2024 2:10PM EST [id number] [facility] Stomach Views for gastric emptying solid phase W radionuclide Aime 01-30-2024 IMPRESSION: Normal rate of gastric emptying of a solid meal. However patient consumed less than the standard meal, which lowers the sensitivity of the study. 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 Book Maker: [employer] Transcribe Date/Time: Jan 30 2024 2:09P Dictated by : JOSELUIS MORA MD This examination was interpreted and the report reviewed and electronically signed by: JOSELUIS MORA MD on Jan 30 2024 2:10PM EST [facility] * * *Final Report* * * DATE OF EXAM: Jan 30 2024 1:51PM [facility] 0017 - [place] GASTRIC EMPTYING SOLID / PROCEDURE REASON: multiple diagnoses * * * * Physician Interpretation * * * * SOLID MEAL GASTRIC EMPTYING STUDY 01/30/2024 2:09 PM: CLINICAL HISTORY: 23 years old Female patient with history of upper abdominal pain, dyspepsia. TECHNIQUE: 1.1 mCi Tc-99m Sulfur Colloid was given orally in a meal consisting of 4 ounces of egg beater and 4 ounces of water., consumed over 5 to 10 minutes. 1-minute posterior and anterior spot images of the stomach region at times 0, 1, 2, and 4 hours were obtained. Geometric mean was used to plot a time-activity curve. RESULT: Solid study demonstrates: - 70% gastric retention at 1 hour (normal range, 37-90%), - 47% retention at 2 hours (normal range, 30-60%), and - 4% retention at 4 hours (normal range, 0-10%). [facility] Provider, [facility] - 01/30/2024 * * *Final Report* * * DATE OF EXAM: Jan 30 2024 1:51PM [facility] 0017 - NM GASTRIC EMPTYING SOLID / PROCEDURE REASON: multiple diagnoses * * * * Physician Interpretation * * * * SOLID MEAL GASTRIC EMPTYING STUDY 01/30/2024 2:09 PM: CLINICAL HISTORY: 23 years old Female patient with history of upper abdominal pain, dyspepsia. TECHNIQUE: 1.1 mCi Tc-99m Sulfur Colloid was given orally in a meal consisting of 4 ounces of egg beater and 4 ounces of water., consumed over 5 to 10 minutes. 1-minute posterior and anterior spot images of the stomach region at times 0, 1, 2, and 4 hours were obtained. Geometric mean was used to plot a time-activity curve. RESULT: Solid study demonstrates: - 70% gastric retention at 1 hour (normal range, 37-90%), - 47% retention at 2 hours (normal range, 30-60%), and - 4% retention at 4 hours (normal range, 0-10%). IMPRESSION IMPRESSION: Normal rate of gastric emptying of a solid meal. However patient consumed less than the standard meal, which lowers the sensitivity of the study. 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 Book Maker: [employer] Transcribe Date/Time: Jan 30 2024 2:09P Dictated by : JOSELUIS MORA MD This examination was interpreted and the report reviewed and electronically signed by: JOSELUIS MORA MD on Jan 30 2024 2:10PM EST [facility] Radiology Study observation (narrative) [facility] NM Stomach Views for gastric emptying solid phase W radionuclide POOrdered By: Cczane Provider on 01-30-2024 [facility] Christine 01-29-2024 CNPN Telephone (MOLEFV) ----- ROSA ALONZO ([id number]) 2000 F Date Time Provider Department 01/29/24 EVELIA HARP [facility] During your visit today, we recorded the following information about you: Evelia Harp CNMT 01/29/2024 1:15 PM Signed SPOKE WITH PT TO CONFIRM APT TO AND EXPLAIN THE EXAM AND ANY PREP. Allergies As of Date: 01/29/2024 Noted Allergy Reaction METRONIDAZOLE 09/07/2020 1 - Mental Status Change 6 - Diarrhea 8 - GI Upset 4 - Hives 14 - Other: See Comments 2 - Rash 12 - Shortness of Breath 16 - Unknown 11 - Vomiting Date Reviewed: 12/28/2023 Reviewed by: Dara Butler Jr., DO - Fully Assessed Reason for Visit: Radiology NM [1489] Prescriptions as of 01/29/2024 - pantoprazole DR (PROTONIX) 40 mg tablet TAKE 1 TABLET BY MOUTH EVERY DAY - amitriptyline (ELAVIL) 25 mg tablet Take 1 tablet by mouth daily at bedtime. - escitalopram oxalate (LEXAPRO) 10 mg tablet Take 5 mg by mouth once daily. - ondansetron (ZOFRAN) 4 mg tablet Take 4 mg by mouth as needed. Problem List As Of Date 01/29/2024 Noted Resolved Cervicalgia [M54.2] 12/09/2021 Chronic pain [...] 11/15/2023 Palpitations [R00.2] 11/15/2023 Encounter Status:Closed by EVELIA HARP on 01/29/24 [facility] Meet 01-01-2024 L Specimen: [id number] Received: 01/02/24 Status: TRUDY Mosley Num: [id number] Spec Type: Surgical Subm Dr: Ana Bolton DO Tissues: A Appendix - Other than Incidental (APPENDIX) Procedures: HE/2, Gross/Micro L3 Age/ Patient Sex Location Account Attending Physician Rosa Alonzo N 23/F [place] [id number] Ana Bolton DO SPEC NUM: [id number] RECD: 01/02/24 STATUS: TRUDY MOSLEY NUM: [id number] RAQUEL: 01/01/[address]: Ana Bolton DO ENTERED: 01/02/[address]: Verena Bettencourt SPEC TYPE: Surgical DEPT: AMY LOMAS ORDERED: HE/2, Gross/Micro L3 ORDERED: HE/2, Gross/Micro L3 Pathological Diagnosis Appendix, appendectomy: Acute [...] masses or areas of perforation are identified. [employer] sections are submitted in A1 (base and midportion)?A2 (entire distal tip). CPT Codes 69775 Specimen: [id number] Received: 01/02/24 Status: TRUDY Mosley Num: [id number] Spec Type: Surgical Subm Dr: Ana Bolton, Tissues: A Appendix - Other than Incidental (APPENDIX) Procedures: HE/Alexandra, Gross/Micro L3 Patient: Rosa Alonzo Jovana [id number] (Continued) Signed (signature on file) Sourav Cabello MD 01/03/24 1808 Normal [facility] CNOVon 12-28-2023 CNOV Office Visit ([facility] ) ----- ROSA ALONZO ([id number]) 2000 F Date Time Provider Department 12/28/23 3:00 PM DARA BUTLER JR [facility] During your visit today, we recorded the [...] inspiratory phase 06/06/[address] Mneon 22 y/o female with chronic abd pain. Etiology is not entirely clear. She has a history of idiopathic pancreatitis but workup has not demonstrated acute or chronic pancreatitis. She is seeing pancreatic biliary specialist in the coming weeks for an opinion. C.Diff testing negative. IBS-D remains an issue, start amitriptyline. Consider referral to [facility] if symptoms fail to improve. Although the [...] last colonoscopy was 8 months ago in [place]. Start amitriptyline Keep appt with Dr. Menon [...] divisum. 12/01/22 HIDA scan was done at [facility]: Normal study EF 69% US: 10/31/22: (care everywhere) Liver normal Gallbaldder appears normal with no stones or sludge. No gallblad (more content not included)... Normal [facility] Amylase SerPl-cCncon 024 Amylase [Catalytic activity/Vol] 44 U/L Normal 30-104 [facility] Comment on above: Order Comment: Speci men Type: BLOOD SPECIMENOrdering Facility: [facility] Address: [address] [place] [address] Performed By: #### 3 040-3, 1798-8, 1987-11 ####[facility] LABCLIA [id number] [facility] [id number] [address] [place] Basophils Auto (Bld) [#/Vol] on 12-27-2023 Basophils (Bld) [#/Vol] 0.04 10*3/uL <0.11 [facility] Basophils/100 WBC Auto (Bld) on 12-27-2023 Basophils/100 WBC (Bld) 0.8 % [facility] Blood manual differential co mment interpretation narrativeon 12-27-2023 Manual differential comment Ganga (Bld) [Interp] Auto [facility] CBC W Auto Differential pane l (Bld)on 12-27-2023 Basophils (Bld) [#/Vol] 0.04 10*3/uL Normal <0.11 [facility] Comment on above: Order Comment: Speci men Type: BLOOD SPECIMENOrdering Facility: [facility] Address: [address] [place] [address] Performed By: #### 5 7021-8 ####[facility] [id number] [place] [address] Basophils/100 WBC (Bld) 0.8 % Normal [facility] Comment on above: Order Comment: Speci men Type: BLOOD SPECIMENOrdering Facility: [facility] Address: [address] [place] [address] Performed By: #### 5 7021-8 ####[facility] [id number] [place] [address] Differential cell count method Nom (Bld) Auto Normal [facility] Comment on above: Order Comment: Speci men Type: BLOOD SPECIMENOrdering Facility: [facility] Address: [address] [place] [address] Performed By: #### 5 7021-8 ####[facility] [id number] [place] [address] Eosinophils (Bld) [#/Vol] 0.22 10*3/uL Normal <0.46 [facility] Comment on above: Order Comment: Speci men Type: BLOOD SPECIMENOrdering Facility: [facility] Address: [address] [place] [address] Performed By: #### 5 7021-8 ####[facility] [id number] [place] [address] Eosinophils/100 WBC (Bld) 4.3 % Normal [facility] Comment on above: Order Comment: Speci men Type: BLOOD SPECIMENOrdering Facility: [facility] Address: [address] [place] [address] Performed By: #### 5 7021-8 ####[facility] [id number] [place] [address] Erythrocyte distribution width (RBC) [Ratio] 11.6 % Normal 11.5-15.0 [facility] Comment on above: Order Comment: Speci men Type: BLOOD SPECIMENOrdering Facility: [facility] Address: [address] [place] [address] Performed By: #### 5 7021-8 ####[facility] [id number] [place] [address] Hematocrit (Bld) [Volume fraction] 41.5 % Normal 36.0-46.0 [facility] Comment on above: Order Comment: Speci men Type: BLOOD SPECIMENOrdering Facility: [facility] Address: [address] [place] [address] Performed By: #### 5 7021-8 ####[facility] [id number] [place] [address] Hemoglobin (Bld) [Mass/Vol] 14.1 g/dL Normal 11.5-15.5 [facility] Comment on above: Order Comment: Speci men Type: BLOOD SPECIMENOrdering Facility: [facility] Address: [address] [place] [address] Performed By: #### 5 7021-8 ####[facility] [id number] [place] [address] Immature granulocytes (Bld) [#/Vol] 10*3/uL Normal <0.10 [facility] Comment on above: Order Comment: Speci men Type: BLOOD SPECIMENOrdering Facility: [facility] Address: [address] [place] [address] Performed By: #### 5 7021-8 ####[facility] [id number] [place] [address] Immature granulocytes/100 WBC (Bld) 0.2 % Normal [facility] Comment on above: Order Comment: Speci men Type: BLOOD SPECIMENOrdering Facility: [facility] Address: [address] [place] [address] Performed By: #### 5 7021-8 ####[facility] [id number] [place] [address] Lymphocytes (Bld) [#/Vol] 2.06 10*3/uL Normal 1.00-4.00 [facility] Comment on above: Order Comment: Speci men Type: BLOOD SPECIMENOrdering Facility: [facility] Address: [address] [place] [address] Performed By: #### 5 7021-8 ####[facility] [id number] [place] [address] Lymphocytes/100 WBC (Bld) 39.8 % Normal [facility] Comment on above: Order Comment: Speci men Type: BLOOD SPECIMENOrdering Facility: [facility] Address: [address] [place] [address] Performed By: #### 5 7021-8 ####[facility] [id number] [place] [address] MCH (RBC) [Entitic mass] 31.5 pg Normal 26.0-34.0 [facility] Comment on above: Order Comment: Speci men Type: BLOOD SPECIMENOrdering Facility: [facility] Address: [address] [place] [address] Performed By: #### 5 7021-8 ####[facility] [id number] [place] [address] MCHC (RBC) [Mass/Vol] 34.0 g/dL Normal 30.5-36.0 [facility] Comment on above: Order Comment: Speci men Type: BLOOD SPECIMENOrdering Facility: [facility] Address: [address] [place] [address] Performed By: #### 5 7021-8 ####[facility] [id number] [place] [address] MCV (RBC) [Entitic vol] 92.6 fL Normal 80.0-100.0 [facility] Comment on above: Order Comment: Speci men Type: BLOOD SPECIMENOrdering Facility: [facility] Address: [address] [place] [address] Performed By: #### 5 7021-8 ####[facility] [id number] [place] [address] Monocytes (Bld) [#/Vol] 0.42 10*3/uL Normal <0.87 [facility] Comment on above: Order Comment: Speci men Type: BLOOD SPECIMENOrdering Facility: [facility] Address: [address] [place] [address] Performed By: #### 5 7021-8 ####[facility] [id number] [place] [address] Monocytes/100 WBC (Bld) 8.1 % Normal [facility] Comment on above: Order Comment: Speci men Type: BLOOD SPECIMENOrdering Facility: [facility] Address: [address] [place] [address] Performed By: #### 5 7021-8 ####[facility] [id number] [place] [address] Neutrophils (Bld) [#/Vol] 2.42 10*3/uL Normal 1.45-7.50 [facility] Comment on above: Order Comment: Speci men Type: BLOOD SPECIMENOrdering Facility: [facility] Address: [address] [place] [address] Performed By: #### 5 7021-8 ####[facility] [id number] [place] [address] Neutrophils/100 WBC (Bld) 46.8 % Normal [facility] Comment on above: Order Comment: Speci men Type: BLOOD SPECIMENOrdering Facility: [facility] Address: [address] [place] [address] Performed By: #### 5 7021-8 ####[facility] LAB[facility] [id number] [place] [address] Nucleated RBC (Bld) [#/Vol] 10*3/uL Normal <0.01 [facility] Comment on above: Order Comment: Speci men Type: BLOOD SPECIMENOrdering Facility: [facility] Address: [address] [place] [address] Performed By: #### 5 7021-8 ####[facility] [id number] [place] [address] Nucleated RBC/100 WBC (Bld) [Ratio] 0.0 /100 WBC Normal [facility] Comment on above: Order Comment: Speci men Type: BLOOD SPECIMENOrdering Facility: [facility] Address: [address] [place] [address] Performed By: #### 5 7021-8 ####[facility] [id number] [place] [address] Platelet mean volume (Bld) [Entitic vol] 10.5 fL Normal 9.0-12.7 [facility] Comment on above: Order Comment: Speci men Type: BLOOD SPECIMENOrdering Facility: [facility] Address: [address] [place] [address] Performed By: #### 5 7021-8 ####[facility] [id number] [place] [address] Platelets (Bld) [#/Vol] 179 10*3/uL Normal 150-400 [facility] Comment on above: Order Comment: Speci men Type: BLOOD SPECIMENOrdering Facility: [facility] Address: [address] [place] [address] Performed By: #### 5 7021-8 ####[facility] [id number] [place] [address] RBC (Bld) [#/Vol] 4.48 10*6/uL Normal 3.90-5.20 [facility] Comment on above: Order Comment: Speci men Type: BLOOD SPECIMENOrdering Facility: [facility] Address: [address] [place] [address] Performed By: #### 5 7021-8 ####[facility] [id number] [place] [address] WBC (Bld) [#/Vol] 5.17 10*3/uL Normal 3.70-11.00 [facility] Comment on above: Order Comment: Speci men Type: BLOOD SPECIMENOrdering Facility: [facility] Address: [address] [place] [address] Performed By: #### 5 7021-8 ####[facility] [id number] [place] [address] CRP SerPl-ncon 12-27-2023 CRP [Mass/Vol] mg/L Normal <0.9 [facility] Comment on above: Order Comment: Speci men Type: BLOOD SPECIMENOrdering Facility: [facility] Address: [address] [place] [address] Performed By: #### 3 040-3, 1798-8, 1987-11 ####[facility] LABCLIA [id number] [place] [address] [facility] Comprehensive metabolic 2000 panelon 12-27-2023 Albumin [Mass/Vol] 4.6 g/dL Normal 3.9-4.9 [facility] Comment on above: Order Comment: Speci men Type: BLOOD SPECIMENOrdering Facility: [facility] Address: [address] [place] [address] Performed By: #### 2 4323-8 ####[facility] [id number] [place] [address] ALP [Catalytic activity/Vol] 53 U/L Normal 34-123 [facility] Comment on above: Order Comment: Speci men Type: BLOOD SPECIMENOrdering Facility: [facility] Address: [address] [place] [address] Performed By: #### 2 4323-8 ####[facility] [id number] [place] [address] ALT [Catalytic activity/Vol] 9 U/L Normal 7-38 [facility] Comment on above: Order Comment: Speci men Type: BLOOD SPECIMENOrdering Facility: [facility] Address: [address] [place] [address] Performed By: #### 2 4323-8 ####[facility] [id number] [place] [address] Anion gap [Moles/Vol] 6 mmol/L Low 8-15 [facility] Comment on above: Order Comment: Speci men Type: BLOOD SPECIMENOrdering Facility: [facility] Address: [address] [place] [address] Performed By: #### 2 4323-8 ####[facility] [id number] [place] [address] AST [Catalytic activity/Vol] 14 U/L Normal 13-35 [facility] Comment on above: Order Comment: Speci men Type: BLOOD SPECIMENOrdering Facility: [facility] Address: [address] [place] [address] Performed By: #### 2 4323-8 ####[facility] [id number] [place] [address] Bilirubin [Mass/Vol] 0.5 mg/dL Normal 0.2-1.3 [facility] Comment on above: Order Comment: Speci men Type: BLOOD SPECIMENOrdering Facility: [facility] Address: [address] [place] [address] Performed By: #### 2 4323-8 ####[facility] [id number] [place] [address] Calcium [Mass/Vol] 10.2 mg/dL Normal 8.5-10.2 [facility] Comment on above: Order Comment: Speci men Type: BLOOD SPECIMENOrdering Facility: [facility] Address: [address] [place] [address] Performed By: #### 2 4323-8 ####[facility] [id number] [place] [address] Chloride [Moles/Vol] 103 mmol/L Normal 98-107 [facility] Comment on above: Order Comment: Speci men Type: BLOOD SPECIMENOrdering Facility: [facility] Address: [address] [place] [address] Performed By: #### 2 4323-8 ####[facility] [id number] [place] [address] CO2 [Moles/Vol] 28 mmol/L Normal 22-30 [facility] Comment on above: Order Comment: Speci men Type: BLOOD SPECIMENOrdering Facility: [facility] Address: [address] [place], [place] [address] Performed By: #### 2 4323-8 ####[facility] [id number] [place] [address] Creatinine [Mass/Vol] 0.68 mg/dL Normal 0.58-0.96 [facility] Comment on above: Order Comment: Speci men Type: BLOOD SPECIMENOrdering Facility: [facility] Address: [address] [place] [address] Performed By: #### 2 4323-8 ####[facility] [id number] [place] [address] Creatinine and Glomerular filtration rate.predicted panel (S/P/Bld) 124 mL/min/1.73m??? Normal >=60 [facility] Comment on above: Order Comment: Speci men Type: BLOOD SPECIMENOrdering Facility: [facility] Address: [address] [place] [address] Result Comment: Ny mated Glomerular Filtration Rate [...] actual GFR. Performed By: #### 2 4323-8 ####[facility] [id number] [place] [address] Glucose [Mass/Vol] 97 mg/dL Normal 74-99 [facility] Comment on above: Order Comment: Speci men Type: BLOOD SPECIMENOrdering Facility: [facility] Address: [address] [place], [place] [address] Result Comment: The [place] Diabetes Association (ADA) provides guidance for cutoff [...] Standards of Medical Care in Diabetes 2016, [place] [employer]. Diabetes Care. 2016.39(Suppl 1). Performed By: #### 2 4323-8 ####[facility] [id number] [place] [address] Potassium [Moles/Vol] 4.3 mmol/L Normal 3.7-5.1 [facility] Comment on above: Order Comment: Speci men Type: BLOOD SPECIMENOrdering Facility: [facility] Address: [address] [place] [address] Performed By: #### 2 4323-8 ####[facility] [id number] [place] [address] Protein [Mass/Vol] 7.2 g/dL Normal 6.3-8.0 [facility] Comment on above: Order Comment: Speci men Type: BLOOD SPECIMENOrdering Facility: [facility] Address: [address] [place], [place] [address] Performed By: #### 2 4323-8 ####[facility] [id number] [place] [address] Sodium [Moles/Vol] 137 mmol/L Normal 136-144 [facility] Comment on above: Order Comment: Speci men Type: BLOOD SPECIMENOrdering Facility: [facility] Address: [address] [address] Performed By: #### 2 4323-8 ####[facility] [id number] [place] [address] Urea nitrogen [Mass/Vol] 13 mg/dL Normal 7-21 [facility] Comment on above: Order Comment: Speci men Type: BLOOD SPECIMENOrdering Facility: [facility] Address: [address] [place] [address] Performed By: #### 2 4323-8 ####[facility] [id number] [place] [address] ESR Westergren method (Bld) [Velocity]on 12-27-2023 ESR (Bld) [Velocity] 12 mm/h Normal 0-20 [facility] Comment on above: Order Comment: Speci men Type: BLOOD SPECIMENOrdering Facility: [facility] Address: [address] [place] [address] Performed By: #### 4 537-7 ####[facility] LABCLIA [id number] [facility] [id number] [address] [place] Eosinophils/100 WBC Auto (Bl d)on 12-27-2023 Eosinophils/100 WBC (Bld) 4.3 % [facility] Erythrocyte distribution wid th Auto (RBC) [Ratio]on 12-27-2023 Erythrocyte distribution width (RBC) [Ratio] 11.6 % 11.5-15.0 [facility] Hematocrit Auto (Bld) [Volum e fraction]on 12-27-2023 Hematocrit (Bld) [Volume fraction] 41.5 % 36.0-46.0 [facility] Hemoglobin [Mass/volume] in Bloodon 12-27-2023 Hemoglobin (Bld) [Mass/Vol] 14.1 g/dL 11.5-15.5 [facility] Laboratory - Chemistry and C hemistry - challengeon 12-27-2023 Albumin [Mass/Vol] 4.6 g/dL 3.9-4.9 [facility] ALP [Catalytic activity/Vol] 53 U/L 34-123 [facility] ALT [Catalytic activity/Vol] 9 U/L 7-38 [facility] Amylase [Catalytic activity/Vol] 44 U/L 30-104 [facility] AST [Catalytic activity/Vol] 14 U/L 13-35 [facility] Bilirubin [Mass/Vol] 0.5 mg/dL 0.2-1.3 [facility] Calcium [Mass/Vol] 10.2 mg/dL 8.5-10.2 [facility] Chloride [Moles/Vol] 103 mmol/L 98-107 [facility] CO2 [Moles/Vol] 28 mmol/L 22-30 [facility] Creatinine [Mass/Vol] 0.68 mg/dL 0.58-0.[address] [facility] Glucose [Mass/Vol] 97 mg/dL 74-99 [facility] Comment on above: The [place] Diabete s Association (ADA) provides guidance for [...] Standards of Medical Care in Diabetes 2016, [place] [employer]. Diabetes Care. 2016.39(Suppl 1). Lipase [Catalytic activity/Vol] 22 U/L 16-61 [facility] Potassium [Moles/Vol] 4.3 mmol/L 3.7-5.[address] [facility] Sodium [Moles/Vol] 137 mmol/L 136-144 [facility] Urea nitrogen [Mass/Vol] 13 mg/dL 7-21 [facility] Laboratory - Hematology and Cell countson 12-27-2023 Eosinophils (Bld) [#/Vol] 0.22 10*3/uL <0.46 [facility] ESR (Bld) [Velocity] 12 mm/h 0-20 [facility] Immature granulocytes/100 WBC (Bld) 0.2 % [facility] Leukocytes [#/volume] correc shena for nucleated erythrocytes in Blood by Automated counon 12-27-2023 WBC corrected for nucl RBC Auto (Bld) [#/Vol] 5.17 k/uL 3.70-11.00 [facility] Lipase SerPl-cCncon 12-27-19 24 Lipase [Catalytic activity/Vol] 22 U/L Normal 16-61 [facility] Comment on above: Order Comment: Speci men Type: BLOOD SPECIMENOrdering Facility: [facility] Address: [address] [place] [address] Performed By: #### 3 040-3, 1798-8, 1987-11 ####[facility] LABCLIA [id number] [place] [address] [place] Lymphocytes Auto (Bld) [#/Vo l]on 12-27-2023 Lymphocytes (Bld) [#/Vol] 2.06 10*3/uL 1.00-4.00 [facility] Lymphocytes/100 WBC Auto (Bl d)on 12-27-2023 Lymphocytes/100 WBC (Bld) 39.8 % [facility] MCH Auto (RBC) [Entitic mass ]on 12-27-2023 MCH (RBC) [Entitic mass] 31.5 pg 26.0-34.0 [facility] MCHC Auto (RBC) [Mass/Vol]on 12-27-2023 MCHC (RBC) [Mass/Vol] 34.0 g/dL 30.5-36.[address] [facility] MCV Auto (RBC) [Entitic vol] on 12-27-2023 MCV (RBC) [Entitic vol] 92.6 fL 80.0-100.0 [facility] Monocytes Auto (Bld) [#/Vol] on 12-27-2023 Monocytes (Bld) [#/Vol] 0.42 10*3/uL <0.87 [facility] Monocytes/100 WBC Auto (Bld) on 12-27-2023 Monocytes/100 WBC (Bld) 8.1 % [facility] Neutrophils Auto (Bld) [#/Vo l]on 12-27-2023 Neutrophils (Bld) [#/Vol] 2.42 10*3/uL 1.45-7.50 [facility] Neutrophils/100 WBC Auto (Bl d)on 12-27-2023 Neutrophils/100 WBC (Bld) 46.8 % [facility] No Panel Informationon 12-26 C-Reactive Protein, Quantitative <0.3 mg/dL <0.9 [facility] Estimated GFR (CKD-EPI) 124 mL/min/1.73m??? >=60 [facility] Comment on above: Estimated Glomerular Filtration [...] Immature Granulocyte # (Auto) <0.03 k/uL <0.10 [facility] Nucleated RBC Auto (Bld) [#/ Vol]on 12-27-2023 Nucleated RBC (Bld) [#/Vol] 10*3/uL <0.01 [facility] Nucleated erythrocytes [Pres ence] in Blood by Automated counton 12-27-2023 Nucleated RBC Auto Ql (Bld) 0.0 /100{WBC} [facility] Platelet mean volume Auto (B ld) [Entitic vol]on 12-27-2023 Platelet mean volume (Bld) [Entitic vol] 10.5 fL 9.0-12.7 [facility] Platelets Auto (Bld) [#/Vol] on 12-27-2023 Platelets (Bld) [#/Vol] 179 10*3/uL 150-400 [facility] Protein [Mass/volume] in Ser um or Plasmaon 12-27-2023 Protein [Mass/Vol] 7.2 g/dL 6.3-8.0 [facility] RBC Auto (Bld) [#/Vol]on RBC (Bld) [#/Vol] 4.48 10*6/uL 3.90-5.20 [facility] Serum or plasma anion gap de terminationon 12-27-2023 Anion gap [Moles/Vol] 6 mmol/L Low 8-[address] [facility] CNCOon 12-05-2023 CNCO Letter Text Normal [facility] CNOVon 12-05-2023 CNOV Office Visit ([id number] ) ----- CLINTONSHIVAM NewberryCRESENCIO Watkins ([id number]) 2000 F Date Time Provider Department 12/05/23 2:00 PM ARIELLA MCCOY [id number] During your visit today, we recorded the [...] Signed GENERAL SURGERY FOLLOW UP SUBJECTIVE: Rosa Watkins Clinton presents for follow up of her laparoscopic [...] that may arise. Follow up: KAREN Mccoy APRN.INTERNAL RECRUITER Referring Provider: ANALIA HOLLIDAY [[id number]] Allergies As of Date: 12/05/2023 Noted Allergy Reaction METRONIDAZOLE 09/07/2020 1 - Mental Status Change 6 - Diarrhea 8 - GI Upset 4 - Hives 14 - Other: See Comments 2 - Rash 12 - Shortness of Breath 16 - Unknown 11 - Vomiting Date Reviewed: 12/05/2023 Reviewed by: Ariella Mccoy APRN.INTERNAL RECRUITER - Fully Assessed Reason for Visit: Post [...] 11/15/2023 Visit Notes: >> Alivia Gracia MA SunDecember 05, 2023 1:44 PM Status: Signed What [...] for Encounter Date Provider Department Center 12/05/2023 [id number] MCCOY [id number] [facility] Encounter Status:Closed by ARIELLA MCCOY on 12/05/23 [facility] ANES POSTPROC EVALon 024 ANES POSTPROC EVAL HNO ID: [id number] Author: MOSHE KRISHNAMURTHY DO Service: Anesthesiology Author Type: Anesthesiologist Type: Anesthesia Postprocedure Evaluation Filed: 11/21/2023 17:47 Note Text: POST ANESTHESIA EVALUATION NOTE : 2000 Procedure Summary Date: 11/21/23 Room / Location: [facility] OR06 / [facility] OR Anesthesia Start: 1408 [...] November 21, 2023 TIME: 5:47 PM CSN: [id number] [facility] ANES PRE-OPon 11-21-2023 ANES PRE-OP HNO ID: [id number] Author: MOSHE KRISHNAMURTHY DO Service: Anesthesiology Author [...] and consent discussed: yes. Patient / Responsible Constitution Party agrees to proceed: yes Patient / Surrogate [...] November 21, 2023 TIME: 2:08 PM CSN: [id number] [facility] BRIEF OP NOTon 11-21-2023 BRIEF OP NOT HNO ID: [id number] Author: ANA LLANES MD Service: General Surgery Author Type: Resident Type: Brief Op Note Filed: 11/21/2023 15:32 Note Text: GENERAL SURGERY BRIEF OPERATIVE NOTE Rosa Alonzo [id number] LOG ID: [id number] Surgery/Procedure Date: 11/21/2023 Incision/Procedure Start Time: 2:30 PM Incision Close/Procedure End Time: 3:23 PM Surgeon(s)/Proceduralist( s) and Plasterer Spray Gun(s): Surgeon(s) and Role: * Seema Davis MD [...] 21, 2023 TIME: 3:31 PM PAGER/CONTACT #: [phone] [facility] OPERATIVE NOon 11-21-2023 OPERATIVE NO HNO ID: [id number] Author: SEEMA DAVIS MD Service: General Surgery Author Type: Physician Type: Operative Report Filed: 11/23/2023 14:05 Note Text: [facility] - Operative Report ROSA ALONZO : 2000 AGE: 23. SEX: F PATIENT TYPE: A HOSP SVC: S LOCATION: [facility] ATTENDING PHYSICIAN: Seema Davis M.D. CSN NUMBER: [id number] DATE OF SURGERY/PROCEDURE: 11/21/2023 INCISION/PROCEDURE START TIME: 2:30 PM INCISION CLOSE/PROCEDURE END TIME: 3:23 PM PREOPERATIVE DIAGNOSIS: Epigastric and right upper quadrant abdominal pain. POSTOPERATIVE DIAGNOSIS: Epigastric and right upper quadrant abdominal pain. SURGEON: Seema Davis M.D. ASSEMBLER [employer] BATTERY: Ana Llanes M.D. SURGERY/PROCEDURE: Laparoscopic cholecystectomy. ANESTHESIA: [...] infraumbilical site was closed with a single ylvjkv-ic-rhsfg #0 Vicryl suture, local anesthetic was infiltrated and this was closed in layers with 3-0 Vicryl. The 5 mm sites were closed with 4-0 Monocryl. The wounds were washed and dried and Exofin glue applied. Patient was awakened and taken to Recovery in satisfactory condition. All counts were correct x2. I was present for the entire operation. Seema Davis M.D. :[id number] /[id number] [facility] PT EDon 11-21-2023 PT ED HNO ID: [id number] Author: JUAN NIEVES RN Service: Nursing Author [...] (RECOMMENDATION): None Electronically Signed By: Juan Nieves [facility] PT ED HNO ID: [id number] Author: SHADIA PAINTER, RN Service: ? Author Type: Registered Nurse [...] (RECOMMENDATION): None Electronically Signed By: Shadia Painter [facility] SURGICAL PATHOLOGYon 024 CASE REPORT [facility] Comment on above: Order Comment: Speci men Type: TISSUE SPECIMENOrdering Facility: [facility] Address: [address] [place] [address] Result Comment: Surg ica Pathology Report Case: [id number] Authorizing Provider: Seema Davis MD Collected: 11/21/2023 02:39 PM Ordering Location: [facility] Received: 11/22/2023 07:43 AM Operating Room Pathologist: Woodrow Rain MD Specimen: Gallbladder Performed By: #### S ####[facility] LABCLIA [id number] [address] [place] CLINICAL HISTORY Normal [facility] Comment on above: Order Comment: Speci men Type: TISSUE SPECIMENOrdering Facility: [facility] Address: [address] [place] [address] Result Comment: Pre- op diagnosis: Cholecystitis [K81.9] Performed By: #### S ####[facility] LABCLIA [id number] [address] [place] FINAL DIAGNOSIS Normal [facility] Comment on above: Order Comment: Speci men Type: TISSUE SPECIMENOrdering Facility: [facility] Address: [address] [place] [address] Result Comment: A. G allbladder, cholecystectomy: -Gallbladder with no diagnostic abnormality. Performed By: #### S ####[facility] LABCLIA [id number] [address] [place] FINAL PERFORMING LAB Normal [facility] Comment on above: Order Comment: Speci men Type: TISSUE SPECIMENOrdering Facility: [facility] Address: [address] [place] [address] Result Comment: Diag nostic interpretation performed at [facility], [address] [place] [address] CLIA# [id number] Supervisor Melt House: Roverto Coleman M.D. Performed By: #### S ####[facility] LABCLIA [id number] [address] [place] GROSS DESCRIPTION A. Gallbladder Normal [facility] Comment on above: Order Comment: Speci [facility] Type: TISSUE SPECIMENOrdering Facility: [facility] Address: [address] [place] [address] Result Comment: Rece ived in formalin designated [...] with a wall thickness of 0.1 cm. [employer] sections are submitted in 1 cassette. WE November 22, 2023 11:51 AM Gross examination performed at [facility], [address] [place] [address] Performed By: #### S ####[facility] LABCLIA [id number] [facility] [id number] [address] [place] Basophils Auto (Bld) [#/Vol] on 11-15-2023 Basophils (Bld) [#/Vol] 0.04 10*3/uL <0.11 [facility] Basophils/100 WBC Auto (Bld) on 11-15-2023 Basophils/100 WBC (Bld) 0.7 % [facility] Blood manual differential co mment interpretation narrativeon 11-15-2023 Manual differential comment Ganga (Bld) [Interp] Auto [facility] CBC W Auto Differential pane l (Bld)on 11-15-2023 Basophils (Bld) [#/Vol] 0.04 10*3/uL Normal <0.11 [facility] Comment on above: Order Comment: Speci men Type: BLOOD SPECIMEN [facility] Address: [address] [place] [address] Performed By: #### 5 7021-8 #### [facility] CLIA [id number] [address] [place] [address] [place] Basophils/100 WBC (Bld) 0.7 % Normal [facility] Comment on above: Order Comment: Speci men Type: BLOOD SPECIMEN [facility] Address: [address] [place] [address] Performed By: #### 5 7021-8 #### [facility] CLIA [id number] [place] Differential cell count method Nom (Bld) Auto Normal [facility] Comment on above: Order Comment: Speci men Type: BLOOD SPECIMEN [facility] Address: [address] [place] [address] Performed By: #### 5 7021-8 #### [facility] CLIA [id number] [address] [place] [address] [place] Eosinophils (Bld) [#/Vol] 0.19 10*3/uL Normal <0.46 [facility] Comment on above: Order Comment: Speci men Type: BLOOD SPECIMEN [facility] Address: [address] [place] [address] Performed By: #### 5 7021-8 #### [facility] [place] [id number] [place] Eosinophils/100 WBC (Bld) 3.4 % Normal [facility] Comment on above: Order Comment: Speci men Type: BLOOD SPECIMEN [facility] Address: [address] [place] [address] Performed By: #### 5 7021-8 #### [facility] CLIA [id number] [place] Erythrocyte distribution width (RBC) [Ratio] 11.6 % Normal 11.5-15.0 [facility] Comment on above: Order Comment: Speci men Type: BLOOD SPECIMEN [facility] Address: [address] [place] [address] Performed By: #### 5 7021-8 #### [facility] CLIA [id number] [address] [place] Hematocrit (Bld) [Volume fraction] 37.7 % Normal 36.0-46.0 [facility] Comment on above: Order Comment: Speci men Type: BLOOD SPECIMEN [facility] Address: [address] [place] [address] Performed By: #### 5 7021-8 #### [facility] CLIA [id number] [address] [place] [address] [place] Hemoglobin (Bld) [Mass/Vol] 12.6 g/dL Normal 11.5-15.5 [facility] Comment on above: Order Comment: Speci men Type: BLOOD SPECIMEN [facility] Address: [address] [place] [address] Performed By: #### 5 7021-8 #### [facility] CLIA [id number] [address] [place] [address] [place] Immature granulocytes (Bld) [#/Vol] 10*3/uL Normal <0.10 [facility] Comment on above: Order Comment: Speci men Type: BLOOD SPECIMEN [facility] Address: [address] [place] [address] Performed By: #### 5 7021-8 #### [facility] IA [id number] [address] [place] [address] [place] Immature granulocytes/100 WBC (Bld) 0.2 % Normal [facility] Comment on above: Order Comment: Speci men Type: BLOOD SPECIMEN [facility] Address: [address] [place] [address] Performed By: #### 5 7021-8 #### [facility] CLIA [id number] [address] [place] [address] [place] Lymphocytes (Bld) [#/Vol] 2.43 10*3/uL Normal 1.00-4.00 [facility] Comment on above: Order Comment: Speci men Type: BLOOD SPECIMEN [facility] Address: [address] [place] [address] Performed By: #### 5 7021-8 #### [facility] CLIA [id number] [address] [place] [address] [place] Lymphocytes/100 WBC (Bld) 43.6 % Normal [facility] Comment on above: Order Comment: Speci men Type: BLOOD SPECIMEN [facility] Address: [address] [place] [address] Performed By: #### 5 7021-8 #### [facility] IA [id number] [address] [place] MCH (RBC) [Entitic mass] 31.9 pg Normal 26.0-34.0 [facility] Comment on above: Order Comment: Speci men Type: BLOOD SPECIMEN [facility] Address: [address] [place] [address] Performed By: #### 5 7021-8 #### [facility] IA [id number] [place] [address] [place] MCHC (RBC) [Mass/Vol] 33.4 g/dL Normal 30.5-36.0 [facility] Comment on above: Order Comment: Speci men Type: BLOOD SPECIMEN [facility] Address: [address] [place] [address] Performed By: #### 5 7021-8 #### [facility] IA [id number] [address] [place] [address] [place] MCV (RBC) [Entitic vol] 95.4 fL Normal 80.0-100.0 [facility] Comment on above: Order Comment: Speci men Type: BLOOD SPECIMEN [facility] Address: [address] [place] [address] Performed By: #### 5 7021-8 #### [facility] IA [id number] [address] [place] [address] [place] Monocytes (Bld) [#/Vol] 0.47 10*3/uL Normal <0.87 [facility] Comment on above: Order Comment: Speci men Type: BLOOD SPECIMEN [facility] Address: [address] [place] [address] Performed By: #### 5 7021-8 #### [facility] IA [id number] [address] [place] Monocytes/100 WBC (Bld) 8.4 % Normal [facility] Comment on above: Order Comment: Speci men Type: BLOOD SPECIMEN [facility] Address: [address] [place] [address] Performed By: #### 5 7021-8 #### [facility] IA [id number] [address] [place] [address] [place] Neutrophils (Bld) [#/Vol] 2.43 10*3/uL Normal 1.45-7.50 [facility] Comment on above: Order Comment: Speci men Type: BLOOD SPECIMEN [facility] Address: [address] [place] [address] Performed By: #### 5 7021-8 #### [facility] IA [id number] [address] [place] [address] [place] Neutrophils/100 WBC (Bld) 43.7 % Normal [facility] Comment on above: Order Comment: Speci men Type: BLOOD SPECIMEN [facility] Address: [address] [place] [address] Performed By: #### 5 7021-8 #### [facility] IA [id number] [address] [place] [address] [place] Nucleated RBC (Bld) [#/Vol] 10*3/uL Normal <0.01 [facility] Comment on above: Order Comment: Speci men Type: BLOOD SPECIMEN [facility] Address: [address] [place] [address] Performed By: #### 5 7021-8 #### [facility] IA [id number] [address] [place] [address] [place] Nucleated RBC/100 WBC (Bld) [Ratio] 0.0 /100 WBC Normal [facility] Comment on above: Order Comment: Speci men Type: BLOOD SPECIMEN [facility] Address: [address] [place] [address] Performed By: #### 5 7021-8 #### [facility] IA [id number] [address] [place] [address] [place] Platelet mean volume (Bld) [Entitic vol] 10.5 fL Normal 9.0-12.7 [facility] Comment on above: Order Comment: Speci men Type: BLOOD SPECIMEN [facility] Address: [address] [place] [address] Performed By: #### 5 7021-8 #### [facility] CLIA [id number] [address] [place] [address] [place] Platelets (Bld) [#/Vol] 201 10*3/uL Normal 150-400 [facility] Comment on above: Order Comment: Speci men Type: BLOOD SPECIMEN [facility] Address: [address] [place] [address] Performed By: #### 5 7021-8 #### [facility] CLIA [id number] [address] [place] [address] [place] RBC (Bld) [#/Vol] 3.95 10*6/uL Normal 3.90-5.20 [facility] Comment on above: Order Comment: Speci men Type: BLOOD SPECIMEN [facility] Address: [address] [place] [address] Performed By: #### 5 7021-8 #### [facility] CLIA [id number] [address] [place] [address] [place] WBC (Bld) [#/Vol] 5.57 10*3/uL Normal 3.70-11.00 [facility] Comment on above: Order Comment: Speci men Type: BLOOD SPECIMEN [facility] Address: [address] [place] [address] Performed By: #### 5 7021-8 #### [facility] CLIA [id number] [address] [place] [address] [place] Basophils (Bld) [#/Vol] 0.04 10*3/uL [facility] Basophils/100 WBC (Bld) 0.7 % [facility] Differential cell count method Nom (Bld) Auto [facility] Eosinophils (Bld) [#/Vol] 0.19 10*3/uL [facility] Eosinophils/100 WBC (Bld) 3.4 % [facility] Erythrocyte distribution width (RBC) [Ratio] 11.6 % 11.5 - 15.0 % [facility] Hematocrit (Bld) [Volume fraction] 37.7 % 36.0 - 46.0 % [facility] Hemoglobin (Bld) [Mass/Vol] 12.6 g/dL 11.5 - 15.5 g/dL [facility] Immature granulocytes (Bld) [#/Vol] [facility] Immature granulocytes/100 WBC (Bld) 0.2 % [facility] Lymphocytes (Bld) [#/Vol] 2.43 10*3/uL [facility] Lymphocytes/100 WBC (Bld) 43.6 % [facility] MCH (RBC) [Entitic mass] 31.9 pg 26.0 - 34.0 pg [facility] MCHC (RBC) [Mass/Vol] 33.4 g/dL 30.5 - 36.0 g/dL [facility] MCV (RBC) [Entitic vol] 95.4 fL 80.0 - 100.0 fL [facility] Monocytes (Bld) [#/Vol] 0.47 10*3/uL [facility] Monocytes/100 WBC (Bld) 8.4 % [facility] Neutrophils (Bld) [#/Vol] 2.43 10*3/uL [facility] Neutrophils/100 WBC (Bld) 43.7 % [facility] Nucleated RBC (Bld) [#/Vol] [facility] Nucleated RBC/100 WBC (Bld) [Ratio] 0.0 % /100 WBC [facility] Platelet mean volume (Bld) [Entitic vol] 10.5 fL 9.0 - 12.7 fL [facility] Platelets (Bld) [#/Vol] 201 10*3/uL [facility] RBC (Bld) [#/Vol] 3.95 10*6/uL 3.90 - 5.2 0 m/uL [facility] WBC (Bld) [#/Vol] 5.57 10*3/uL [facility] Christine 11-15-2023 ANA Telephone ([facility]) ----- ROSA ALONZO ([id number]) 2000 F Date Time Provider Department 11/15/23 [...] as scheduled? Event monitor preliminary reading in [email or web address] View Cardiac Outpatient Recording/Telemetry [ID [id number]] ECHO completed in [employer]. Of note she also has been to the ED 2 times for her palpitations since your visit, with c/o of palpations intermittently throughout the day. she denies associated SOB or dizziness. She reports her symptoms have not changed. Thank you, Viktoria Causey PA-C [facility] Valery Lujan, RN 11/15/2023 5:14 PM Signed Plan: - [...] Sedrick Rushing MD You; Wilfredo Avila OCCA; Chasew Card Nurse 9 hours [...] PM Signed Faxed Cardiac Clearance form to [facility] at [phone]. Scanned into chart. CHATO Ramirez Allergies As [...] Status:Closed by VIKTORIA CAUSEY on 11/16/23 Normal [facility] Comprehensive metabolic 2000 panelon 04-25-2024 Albumin [Mass/Vol] 4.4 g/dL Normal 3.9-4.9 [facility] Comment on above: Order Comment: Speci men Type: BLOOD SPECIMEN [facility] Address: [address] [place] [address] Performed By: #### 2 4323-8 #### [facility] CLIA [id number] [address] [place] [address] [place] ALP [Catalytic activity/Vol] 47 U/L Normal 34-123 [facility] Comment on above: Order Comment: Speci men Type: BLOOD SPECIMEN [facility] Address: [address] [place] [address] Performed By: #### 2 4323-8 #### [facility] CLIA [id number] [address] [place] [address] [place] ALT [Catalytic activity/Vol] 8 U/L Normal 7-38 [facility] Comment on above: Order Comment: Speci men Type: BLOOD SPECIMEN [facility] Address: [address] [place] [address] Performed By: #### 2 4323-8 #### [facility] CLIA [id number] [address] [place] [address] [place] Anion gap [Moles/Vol] 11 mmol/L Normal 9-18 [facility] Comment on above: Order Comment: Speci men Type: BLOOD SPECIMEN [facility] Address: [address] [place] [address] Performed By: #### 2 4323-8 #### [facility] CLIA [id number] [address] [place] [address] [place] AST [Catalytic activity/Vol] 18 U/L Normal 13-35 [facility] Comment on above: Order Comment: Speci men Type: BLOOD SPECIMEN [facility] Address: [address] [place], [place] [address] Performed By: #### 2 4323-8 #### [facility] CLIA [id number] [address] [place] [address] [place] Bilirubin [Mass/Vol] 0.4 mg/dL Normal 0.2-1.3 [facility] Comment on above: Order Comment: Speci men Type: BLOOD SPECIMEN Order[facility] Facility: [facility] Address: [address] [place] [address] Performed By: #### 2 4323-8 #### [facility] IA [id number] [address] [place] [address] [place] Calcium [Mass/Vol] 9.6 mg/dL Normal 8.5-10.2 [facility] Comment on above: Order Comment: Speci men Type: BLOOD SPECIMEN Ordering Facility: [facility] Address: [address] [place] [address] Performed By: #### 2 4323-8 #### [facility] [place] [id number] [address] [place] [address] [place] Chloride [Moles/Vol] 103 mmol/L Normal 97-105 [facility] Comment on above: Order Comment: Speci men Type: BLOOD SPECIMEN Ordering Facility: [facility] Address: [address] [place] [address] Performed By: #### 2 4323-8 #### [facility] [place] [id number] [address] [place] [address] [place] CO2 [Moles/Vol] 24 mmol/L Normal 22-30 [facility] ital Comment on above: Order Comment: Speci men Type: BLOOD SPECIMEN Ordering Facility: [facility] Address: [address] [place] [address] Performed By: #### 2 4323-8 #### [facility] [place] [id number] [address] [place], [place] [id number] [place] Creatinine [Mass/Vol] 0.75 mg/dL Normal 0.58-0.96 [facility] Comment on above: Order Comment: Speci men Type: BLOOD SPECIMEN Ordering Facility: [facility] Address: [address] [place] [address] Performed By: #### 2 4323-8 #### [facility] CLIA [id number] [facility] [place] [address] [place] Creatinine and Glomerular filtration rate.predicted panel (S/P/Bld) 114 mL/min/1.73m??? Normal >=60 [facility] Comment on above: Order Comment: Reilly medel Type: BLOOD SPECIMEN Ordering Facility: [facility] Address: [address] [place] [address] Result Comment: Ny mated Glomerular Filtration Rate [...] GFR. Performed By: #### 2 4323-8 #### [facility] CLIA [id number] [facility] [place] [place] [address] [place] Glucose [Mass/Vol] 109 mg/dL High 74-99 [facility] Comment on above: Order Comment: Reilly medel Type: BLOOD SPECIMEN Ordering Facility: [facility] Address: [address] [place] [address] Result Comment: The [place] Diabetes Association (ADA) provides guidance for cutoff [...] Standards of Medical Care in Diabetes 2016, [place] [employer]. Diabetes Care. 2016.39(Suppl 1). Performed By: #### 2 4323-8 #### [facility] CLIA [id number] [facility] [place] [address] [place] Potassium [Moles/Vol] 4.5 mmol/L Normal 3.7-5.1 [facility] Comment on above: Order Comment: Speci men Type: BLOOD SPECIMEN Ordering Facility: [facility] Address: [address] [place] [address] Performed By: #### 2 4323-8 #### [facility] IA [id number] [address] [place] [address] [place] Protein [Mass/Vol] 6.9 g/dL Normal 6.3-8.0 [facility] Comment on above: Order Comment: Speci men Type: BLOOD SPECIMEN Ordering Facility: [facility] Address: [address] [place] [address] Performed By: #### 2 4323-8 #### [facility] IA [id number] [address] [place] [address] [place] Sodium [Moles/Vol] 138 mmol/L Normal 136-144 [facility] Comment on above: Order Comment: Speci men Type: BLOOD SPECIMEN Ordering Facility: [facility] Address: [address] [place] [address] Performed By: #### 2 4323-8 #### [facility] IA [id number] [address] [place] [address] [place] Urea nitrogen [Mass/Vol] 16 mg/dL Normal 7-21 [facility] Comment on above: Order Comment: Speci men Type: BLOOD SPECIMEN Ordering Facility: [facility] Address: [address] [place] [address] Performed By: #### 2 4323-8 #### [facility] IA [id number] [address] [place] [address] [place] Albumin [Mass/Vol] 4.4 g/dL 3.9 - 4.9 g/dL [facility] ALP [Catalytic activity/Vol] 47 U/L 34 - 123 U/L [facility] ALT [Catalytic activity/Vol] 8 U/L 7 - 38 U/L [facility] Anion gap [Moles/Vol] 11 mmol/L 9 - 18 mmol/L [facility] AST [Catalytic activity/Vol] 18 U/L 13 - 35 U/L [facility] Bilirubin [Mass/Vol] 0.4 mg/dL 0.2 - 1 .3 mg/dL [facility] Calcium [Mass/Vol] 9.6 mg/dL 8.5 - 10. 2 mg/dL [facility] Chloride [Moles/Vol] 103 mmol/L 97 - 10 5 mmol/L [facility] CO2 [Moles/Vol] 24 mmol/L 22 - 30 mmol/L [facility] Creatinine [Mass/Vol] 0.75 mg/dL 0.58 - 0.96 mg/dL [facility] GFR/1.73 sq M.predicted among non-blacks MDRD (S/P/Bld) [Vol rate/Area] 114 mL/min/{1.73_m2} - PINF [facility] Comment on above: Estimated Glomerular Filtration [...] 109 mg/dL High 74 - 99 mg/dL [facility] Comment on above: The [place] Diabete s Association (ADA) provides guidance for [...] Standards of Medical Care in Diabetes 2016, [place] [employer]. Diabetes Care. 2016.39(Suppl 1). Interpretation and review of laboratory results Abnormal [facility] Potassium [Moles/Vol] 4.5 mmol/L 3.7 - 5.1 mmol/L [facility] Protein [Mass/Vol] 6.9 g/dL 6.3 - 8.0 g/dL [facility] Sodium [Moles/Vol] 138 mmol/L 136 - 144 mmol/L [facility] Urea nitrogen [Mass/Vol] 16 mg/dL 7 - 21 mg/dL [facility] Eosinophils/100 WBC Auto (Bl d)on 11-15-2023 Eosinophils/100 WBC (Bld) 3.4 % [facility] Erythrocyte distribution wid th Auto (RBC) [Ratio]on 11-15-2023 Erythrocyte distribution width (RBC) [Ratio] 11.6 % 11.5-15.0 [facility] HISTORY PHYSICALon HISTORY PHYSICAL HNO ID: [id number] Author: VIKTORIA CAUSEY PA-C Service: ? Author Type: Physician Plasterer Spray Gun Type: H&P Filed: 11/16/2023 07:41 Note Text: [...] the following medical conditions which may affect eilsha-operative course: 1. Pre-op examination surgery scheduled for 11/21/2023 - COMPLETE BLOOD COUNT AND DIFFERENTIAL; Future - COMPREHENSIVE METABOLIC PANEL; Future 2. Palpitations Follows with cardiology, Dr. Rushing, last OV 10/22/2023. Patient completed cardiac testing recommended. Patient reports her symptoms have not changed. they still occur 1/week. Denies associated dizziness, syncope, CP, SOB. Pulse today 75, regular rhythm today [id number] Ejection Fraction - Result: 63 % [...] 2023 7:39 AM Sedrick Rushing MD You; Wilfredo Avila OCCA; Karan Card Nurse 9 hours ago (10:29 PM) [...] Yes No (more content not included)... Normal [facility] Hematocrit Auto (Bld) [Volum e fraction]on 11-15-2023 Hematocrit (Bld) [Volume fraction] 37.7 % 36.0-46.0 [facility] Hemoglobin [Mass/volume] in Bloodon 11-15-2023 Hemoglobin (Bld) [Mass/Vol] 12.6 g/dL 11.5-15.5 [facility] Laboratory - Chemistry and C hemistry - challengeon 11-15-2023 Albumin [Mass/Vol] 4.4 g/dL 3.9-4.9 [facility] ALP [Catalytic activity/Vol] 47 U/L 34-123 [facility] ALT [Catalytic activity/Vol] 8 U/L 7-38 [facility] AST [Catalytic activity/Vol] 18 U/L 13-35 [facility] Bilirubin [Mass/Vol] 0.4 mg/dL 0.2-1.3 [facility] Calcium [Mass/Vol] 9.6 mg/dL 8.5-10.2 [facility] Chloride [Moles/Vol] 103 mmol/L 97-105 [facility] CO2 [Moles/Vol] 24 mmol/L 22-30 [facility] Creatinine [Mass/Vol] 0.75 mg/dL 0.58-0.[address] [facility] Glucose [Mass/Vol] 109 mg/dL 74-99 [facility] Comment on above: The [place] Diabete s Association (ADA) provides guidance for [...] Standards of Medical Care in Diabetes 2016, [place] Diabetes [employer]. Diabetes Care. 2016.39(Suppl 1). Potassium [Moles/Vol] 4.5 mmol/L 3.7-5.[address] [facility] Sodium [Moles/Vol] 138 mmol/L 136-144 [facility] Urea nitrogen [Mass/Vol] 16 mg/dL 02-09 [facility] Laboratory - Hematology and Cell countson 11-15-2023 Eosinophils (Bld) [#/Vol] 0.19 10*3/uL <0.46 [facility] Immature granulocytes/100 WBC (Bld) 0.2 % [facility] Leukocytes [#/volume] correc shena for nucleated erythrocytes in Blood by Automated counon 11-15-2023 WBC corrected for nucl RBC Auto (Bld) [#/Vol] 5.57 k/uL 3.70-11.00 [facility] Lymphocytes Auto (Bld) [#/Vo l]on 11-15-2023 Lymphocytes (Bld) [#/Vol] 2.43 10*3/uL 1.00-4.00 [facility] Lymphocytes/100 WBC Auto (Bl d)on 11-15-2023 Lymphocytes/100 WBC (Bld) 43.6 % [facility] MCH Auto (RBC) [Entitic mass ]on 11-15-2023 MCH (RBC) [Entitic mass] 31.9 pg 26.0-34.0 [facility] MCHC Auto (RBC) [Mass/Vol]on 11-15-2023 MCHC (RBC) [Mass/Vol] 33.4 g/dL 30.5-36.[address] [facility] MCV Auto (RBC) [Entitic vol] on 11-15-2023 MCV (RBC) [Entitic vol] 95.4 fL 80.0-100.0 [facility] Monocytes Auto (Bld) [#/Vol] on 11-15-2023 Monocytes (Bld) [#/Vol] 0.47 10*3/uL <0.87 [facility] Monocytes/100 WBC Auto (Bld) on 11-15-2023 Monocytes/100 WBC (Bld) 8.4 % [facility] Neutrophils Auto (Bld) [#/Vo l]on 11-15-2023 Neutrophils (Bld) [#/Vol] 2.43 10*3/uL 1.45-7.50 [facility] Neutrophils/100 WBC Auto (Bl d)on 11-15-2023 Neutrophils/100 WBC (Bld) 43.7 % [facility] No Panel Informationon 11-14 Estimated GFR (CKD-EPI) 114 mL/min/1.73m??? >=60 [facility] Comment on above: Estimated Glomerular Filtration [...] Immature Granulocyte # (Auto) <0.03 k/uL <0.10 [facility] Nucleated RBC Auto (Bld) [#/ Vol]on 11-15-2023 Nucleated RBC (Bld) [#/Vol] 10*3/uL <0.01 [facility] Nucleated erythrocytes [Pres ence] in Blood by Automated counton 11-15-2023 Nucleated RBC Auto Ql (Bld) 0.0 /100{WBC} [facility] Platelet mean volume Auto (B ld) [Entitic vol]on 11-15-2023 Platelet mean volume (Bld) [Entitic vol] 10.5 fL 9.0-12.7 [facility] Platelets Auto (Bld) [#/Vol] on 11-15-2023 Platelets (Bld) [#/Vol] 201 10*3/uL 150-400 [facility] Protein [Mass/volume] in Ser um or Plasmaon 11-15-2023 Protein [Mass/Vol] 6.9 g/dL 6.3-8.0 [facility] RBC Auto (Bld) [#/Vol]on RBC (Bld) [#/Vol] 3.95 10*6/uL 3.90-5.20 [facility] Serum or plasma anion gap de terminationon 11-15-2023 Anion gap [Moles/Vol] 11 mmol/L 9-[address] [facility] ECHOon 11-07-2023 Echocardiography Echocardiography Rep ort: Transthoracic Echo [facility] Date of service: 11/07/2023 1:59:20 PM RAIL Ordering physician: SEDRCIK RUSHING Indication: Abnormal ECG Technologist: Walt Silva [facility] Interpreting physician: Roberto Rodríguez MD PATIENT: Name: [...] * * Final * * * CC [email or web address] Medical Image : [id number] Normal [facility] Christine 11-05-2023 ANA Telephone (CARDAV) ----- ROSA ALONZO ([id number]) 2000 F Date Time Provider Department 11/05/23 [...] to see how frequently she is in [place]. Allergies As of Date: 11/05/2023 Noted Allergy Reaction METRONIDAZOLE 09/07/2020 1 - Mental Status Change 6 - Diarrhea 8 - GI Upset 4 - Hives 14 - Other: See Comments 2 - Rash 12 - Shortness of Breath 16 - Unknown 11 - Vomiting Date Reviewed: 10/22/2023 Reviewed by: Azael Larson LPN - Fully Assessed Reason for Visit: Patient Question [8937] Cmt: PVCs and Frequent ED visits. Prescriptions [...] Encounter Status:Closed by SEDRICK RUSHING on 11/05/23 [facility] 10-30-2023 CNPN Telephone (CARDAV) ----- ROSA ALONZO ([id number]) 2000 F Date Time Provider Department 10/30/23 SEDRICK RUSHING During your visit today, we recorded the following information about you: Juanis Cabello, RN 10/30/2023 11:14 AM Signed The pt is calling. Please review the my chart message from today for an EKG attachment she sent from her ED visit last night. She went to the [place] ED. Are you able to revue her Zio patch from yesterday around 1147? It was at this time she was experiencing some SOB and irregular beats. Another time was at 1559. She does not have a follow up appt with you. Please advise further. You may call her back at the number listed in contacts and may leave a message. Thank you Vero Romero RN 11/01/2023 9:57 AM Signed Patient calling See message below Same, ongoing symptoms Staying hydrated Concerned Call CELL [phone] Leave Detailed messages Chichi Monroy, VIRGILIO 11/01/2023 3:25 PM Signed Called and spoke [...] Encounter Status:Closed by CHICHI MONROY on 11/01/23 [facility] Christine 10-23-2023 CNPN Telephone ([facility]) ----- ROSA ALONZO ([id number]) 2000 F Date Time Provider Department 10/23/[address] [facility] During your visit today, we recorded the following information about you: Daxa Gray, VIRGILIO 10/23/2023 1:[address] Sedrick Rushing's office for cardiac clearance at [phone]. Abnormal heart sounds with gallbladder consult on [...] Fully Assessed Reason for Visit: Cardiac Clearance [4762] Prescriptions as of 10/23/2023 - dicyclomine (BENTYL) [...] Status:Closed by DAXA GRAY on 10/23/23 Normal [facility] Telephone (CARDAV) ----- ROSA ALONZO ([id number]) 2000 F Date Time Provider Department 10/23/23 SEDRICK RUSHING During your visit today, we recorded the following information about you: Wilfredo Avila OCCA 10/23/2023 1:53 PM Signed Received form requesting cardiac evaluation for surgical clearance from [facility] Surgery with Dr. Seema Davis. Surgery Date: 11-21-2023 Fax to [facility] Surgery: [phone] Rushing to review. CHATO Ramirez Cynthia, OCCA 12/07/2023 4:[address] Rushing filled out Cardiac Clearance Form. Faxed to [facility] Surgery at [phone]. Scanned into chart. CHATO Ramirez Allergies As [...] Encounter Status:Closed by WILFREDO AVILA on 10/23/23 [facility] CNOVon 10-22-2023 CNOV Office Visit (CARINF ) ----- ROSA ALONZO ([id number]) 2000 F Date Time Provider Department 10/22/23 3:00 PM SEDRICK RUSHING CARINF During your visit today, we recorded the following information about you: Pulse Blood pressure Weight Height 40/minute 102/62 52.6 kg 1.626 Sedrick Davis MD 10/22/2023 3:17 PM Signed [facility] Department of Cardiovascular Medicine SECTION OF REGIONAL CARDIOLOGY OUTPATIENT VISIT DATE October 21, 2023 OUTPATIENT VISIT TYPE NEW CONSULTATION PRIMARY CARE PHYSICIAN: Analia Holliday [address] [facility] [place] [address] CHIEF COMPLAINT: Palpitations HISTORY OF PRESENT ILLNESS: [...] Shortness of Breath, Unknown, Vomiting CURRENT MEDICATIONS: qnevwl-stkhiplq-hutvlle (CREON) 24,000-76,000 -120,000 unit delayed release capsule [...] on File Prior to Visit Medication Sig cpinmo-nofxtpoy-pasvhxa (CREON) 24,000-76,000 -120,000 unit delayed release capsule [...] INFORMATION: Sedrick Rushing MD Cardiovascular Medicine Staff [facility] [address] [place] [address] Azael Larson LPN 10/22/2023 3:33 PM Signed EVENT MONITOR DISPOSABLE PATCH INSTRUCTIONS Patient Name: Rosa Alonzo [facility] Number: [id number] Skin prepped and cleansed with alcohol Patch secured to prepped area Monitor Activated Serial #: [id number] Patient Instructed: Prescribed order timeframe Bathing guidelines Usage of event button and diary documentation Return of monitor at the end of prescribed order Call with problems [phone] or [phone]. [phone] (more content not included)... Normal [facility] CNOVon 10-19-2023 CNOV Office Visit (GEMT ) ----- ROSA ALONZO ([id number]) 2000 F Date Time Provider Department 10/19/23 2:20 PM SEEMA DAVIS During your visit today, we recorded the [...] Take 4 mg by mouth as needed. 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 Lives with her . [...] the date of the service which included bnjm-nv-jxjt patient care, completing clinical documentation, obtaining and/or reviewing separately obtained history, performing a medically appropriate examination, counseling and educating the patient/family/caregiver, and independently interpreting results (not separately reported). Seema Davis MD . Daxa Gray, VIRGILIO 10/21/2023 9:18 PM Signed New patient consult [...] within normal limits Referring Provider: SEEMA DAVIS [[id number]] Allergies As of Date: 10/19/2023 Noted Allergy Reaction METRONIDAZOLE 09/07/2020 1 - Mental Status Change 6 - Diarrhea 8 - GI Upset 4 - Hives 14 - Other: See Comments 2 - Rash 12 - Shortness of Breath 16 - Unknown 11 - Vomiting Date Reviewed: 10/19/2023 (more content not included)... Normal [facility] ECG COMPLETEon 10-19-2023 ECG COMPLETE Ventricular Rate : 6 7 BPM Atrial Rate : 67 BPM P-R Interval : 160 ms QRS Duration : 94 ms Q-T Interval : 402 ms QTC Calculation(Bazett) : 424 ms Calculated P [place] : 76 degrees Calculated R [place] : 37 degrees Calculated T [place] : 57 degrees NORMAL SINUS RHYTHM WITH SINUS ARRHYTHMIA POSSIBLE LEFT ATRIAL ENLARGEMENT RSR' PATTERN IN V1 SUGGESTS INCOMPLETE RIGHT BUNDLE BRANCH BLOCK BORDERLINE ECG NO PREVIOUS ECGS AVAILABLE Confirmed by JENNIFER SURESH MD ([id number]) on 10/22/2023 1:00:28 PM NAME : ROSA ALONZO PID : [id number] : 2000 Gender : Female Race : ORD : [id number] Procedure Date : Oct 19 2023 14:37:15 Edit Date : Oct 22 2023 13:00:33 Diagnosis: NORMAL SINUS RHYTHM WITH SINUS ARRHYTHMIA POSSIBLE LEFT ATRIAL ENLARGEMENT RSR' PATTERN IN V1 SUGGESTS INCOMPLETE RIGHT BUNDLE BRANCH BLOCK BORDERLINE ECG NO PREVIOUS ECGS AVAILABLE Confirmed by JENNIFER SURESH MD ([id number]) on 10/22/2023 1:00:28 PM Test Reason : SVT Location : 667 : [facility] Overread By : JENNIFER SURESH MD Edited By : JENNIFER SURESH MD Referred By : SEEMA DAVIS Acquired by : [id number], [facility]LENA[facility] ----- CLINTONROSA Newberry Jovana ([id number]) 2000 F Date Time Provider Department 09/11/23 [...] 09/11/2023 4:25 PM Signed Please refer to [place] msg dated 09/11/2023. Gisela Ponce RN Allergies As [...] Update [1234] Prescriptions as of 09/11/2023 - ggvrdy-otgircct-ezmhkxp (CREON) 24,000-76,000 -120,000 unit delayed release capsule [...] Encounter Status:Closed by GISELA PONCE on 09/11/23 [facility] ANES POSTPROC EVALon 024 ANES POSTPROC EVAL HNO ID: [id number] Author: CIPRIANO PIMENTEL MD Service: Anesthesiology Author Type: Anesthesiologist Type: Anesthesia Postprocedure Evaluation Filed: 09/06/2023 13:55 Note Text: POST ANESTHESIA EVALUATION NOTE : 2000 Procedure Summary Date: 09/06/23 Room / Location: [facility] Endoscopy - ENDO Anesthesia Start: 1244 Anesthesia Stop: 1327 Procedure: EGD - THERAPEUTIC, EUS, OR TUBE INTERVENTIONS Diagnosis: Chronic recurrent pancreatitis (HCC) Scheduled Providers: Isabelle Menon MD; Cipriano Pimentel MD; Elif Hess APRN.REMELT FURNACE EXPEDITER Responsible Provider: Cipriano Pimentel MD Anesthesia Type: [...] September 06, 2023 TIME: 1:55 PM CSN: [id number] [facility] ANES PRE-OPon 09-06-2023 ANES PRE-OP HNO ID: [id number] Author: CIPRIANO PIMENTEL MD Service: Anesthesiology Author Type: Anesthesiologist Type: Anesthesia Preprocedure Evaluation Filed: 09/06/2023 10:56 Note Text: ANESTHESIOLOGY DAY OF SURGERY NOTE : 2000 Procedure Information Date/Time: 09/06/23 1130 Scheduled providers: Isabelle Menon MD; Cipriano Pimentel MD; Elif Hess APRN.REMELT FURNACE EXPEDITER Procedure: EGD - THERAPEUTIC, EUS, OR TUBE INTERVENTIONS Location: [facility] Endoscopy - ENDO Estimated body mass index [...] and consent discussed: yes. Patient / Responsible Constitution Party agrees to proceed: yes Patient / Surrogate [...] 10 mg by mouth once daily. - uymatn-oehejypd-cxyczif (CREON) 24,000-76,000 -120,000 unit delayed release capsule [...] September 06, 2023 TIME: 10:54 AM CSN: [id number] [facility] ROSA AL[facility]ZO ([id number]) 2000 F Date Time Provider Department 09/06/23 ISABELLE MENON FVPRAD During your visit today, we recorded the following information about you: Allergies As of Date: 09/06/2023 Noted Allergy Reaction METRONIDAZOLE 09/07/2020 1 - Mental Status Change 6 - Diarrhea 8 - GI Upset 4 - Hives 14 - Other: See Comments 2 - Rash 12 - Shortness of Breath 16 - Unknown 11 - Vomiting Date Reviewed: 09/06/2023 Reviewed by: Mckenzie Segura, VIRGILIO - Fully Assessed Prescriptions as of 09/06/2023 - dtngth-yxojpvgj-xvwbyeg (CREON) 24,000-76,000 -120,000 unit delayed release capsule [...] Encounter Status:Closed by ISABELLE MENON on 09/06/23 [facility] EGD Study observation Narrat iveon 09-06-2023 [facility] HISTORY PHYSICALon HISTORY PHYSICAL HNO ID: [id number] Author: ISABELLE MENON MD Service: Gastroenterology Author [...] mouth once daily. 09/05/2023 at 1000 Yes rxiief-bxodjcjb-irlepzu (CREON) 24,000-76,000 -120,000 unit delayed release capsule [...] DATE: September 06, 2023 TIME: 12:20 PM [facility] NURSING PROGon 09-06-2023 NURSING PROG HNO ID: [id number] Author: RICKIE GU RN Service: Nursing Author [...] Endo in satisfactory condition Rickie Gu RN [facility] NURSING PROG HNO ID: [id number] Author: RICKIE GU RN Service: Nursing Author [...] (RECOMMENDATION): None Electronically Signed By: Rickie Gu [facility] Upper EUSon 09-06-2023 Upper EUS [facility] Gastrointestinal Endoscopy Patient Name: Rosa Alonzo Procedure Date: 09/06/2023 12:16 PM Date of : 2000 Admit Type: Outpatient Age: 22 Room: [place] [address] Gender: Female Note Status: Finalized Attending MD: Isabelle Menon MD, [id number] Procedure: Upper EUS Indications: Abnormal abdominal/pelvic CT scan, Acute pancreatitis, 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 Chronic RUQ pain radiating to the back. RUQ US and HIDA scan with CCK normal. Pancreatitis age 14 of unclear aetiology. Providers: Isabelle Menon MD, Gwen Ornelas, RN, Chrissie Forbes, RN, Felix Vick RN (Assisting Nurse) Patient Profile: [...] for cholecystectomy. 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 All rights reserved. The codes documented in this report are preliminary and upon hcc coders review may be revised to meet current compliance requirements. Attending Participation: I personally performed the entire procedure. Scope In: 12:53:03 PM Scope Out: 1:22:36 PM MD Isabelle Cedeno MD 09/06/2023 3:29:47 PM This report has been signed electronically by Isabelle Menon MD Number of Addenda: 0 Note Initiated On: 09/06/2023 12:16 PM Estimated Blood Loss: Estimated blood loss: none. Normal [facility] CNCOon 07-30-2023 CNCO Letter Text Normal [facility] CNPNon 07-13-2023 CNPN Telephone (GASTNO) ----- ROSA ALONZO ([id number]) 2000 F Date Time Provider Department 07/13/23 [...] for EUS, linear. MD Kris Medrano Dawn, RN 07/13/2023 9:57 AM Signed Anabel, please schedule [...] schedule her EUS. Please call her at [phone]. Anabel Aguilar II 07/30/2023 11:20 AM Signed Attempted to call patient regarding scheduling EUS, no answer, left message for patient to call back to schedule. Anabel San Adm Asst II Chuck Adm AsstAnabel II 07/30/2023 11:23 AM Signed Patient returned call, scheduled EUS , 09/06/2023 at [facility]. Anabel San Adm Asst II Allergies As of Date: [...] EUS, OR TUBE INTERVENTIONS [GI2] Order #: [id number] FUTURE Prescriptions as of 07/30/2023 - hpwoxh-lqmxymyl-vauvamr (CREON) 24,000-76,000 -120,000 unit delayed release capsule [...] 12/08/2022 Photosensitivity [L56.8] 12/08/2022 Encounter Status:Closed by CHUCK WALSH ANABEL FELIX II on 07/30/23 Normal [facility] CTA ABD/PELV W IVCONon 07-05 CTA ABD/PELV W IVCON * * *Final Report* * * DATE OF EXAM: Jul 05 2023 11:20AM [facility] 0311 - CTA ABD/PELV W IVCON / [...] fluid collection. Bones/Soft Tissues: No significant finding. Maintenance Of Way Superintendent (topogram) images: No additional findings. IMPRESSION: Likely [...] any questions regarding this interpretation, please call [phone]. If you are unable to reach us at the number above, please feel free to contact [facility] eRadiology at [phone]. [id number] Normal [facility] CNPNon 06-25-2023 CNPN Telephone (RCTLO) ----- ROSA ALONZO ([id number]) 2000 F Date Time Provider Department 06/25/23 LARGE HOPS PROCEDURE RM 15 RCTLO During your visit today, we recorded the following information about you: Isabelle Menon MD 06/25/2023 5:25 PM Signed Gisela: I wanted her to have CTA. Is this what was ordered? See the massage from Mckenzie Stranadeem. 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 MD Kris Medrano Dawn, RN 06/26/2023 9:16 AM Signed CTA is ordered. [...] Scans [867] Prescriptions as of 06/26/2023 - ioicuf-jdrvvfhd-qsehtnp (CREON) 24,000-76,000 -120,000 unit delayed release capsule [...] Status:Closed by MCKENZIE HECK on 06/25/23 Normal [facility] CNOVon 06-06-2023 CNOV Office Visit (GASTNO ) ----- ROSA ALONZO ([id number]) 2000 F Date Time Provider Department 06/06/23 [...] her mother who works as in at [employer] [facility]. The problem started when she was age [...] an issue, start amitriptyline. Consider referral to [facility] if symptoms fail to improve. 1. Chronic [...] structures: No (more content not included)... Normal [facility] HISTORY PHYSICALon HISTORY PHYSICAL HNO ID: [id number] Author: Isabelle Menon MD Service: ? Author [...] her mother who works as in at [facility]. The problem started when she was age [...] an issue, start amitriptyline. Consider referral to [facility] if symptoms fail to improve. 1. Chronic [...] divisum. 12/01/22 HIDA scan was done at [facility]: Normal study EF 69% US: 10/31/22: (care everywhere) Liver normal Gallbal (more content not included)... Normal [facility] Alanine aminotransferase [En zymatic activity/volume] in Serum or PlasmaOrdered By: Analia Holliday on 05-30-2023 ALT [Catalytic activity/Vol] 10 U/L Normal 7-52 [facility] Comment on above: Order Comment: Reaso n for Exam Well adult exam Performed By: #### V [id number], TSH3, CMP wRFX A1C, LIPID, CBC, FE PRO, [id number] #### [facility] [address] [place] [id number] [place] Albumin [Mass/volume] in Ser um or Plasma by Bromocresol green (BCG) dye binding methoOrdered By: Analia Holliday on 05-30-2023 Albumin BCG dye [Mass/Vol] 4.6 g/dL 3.5-5.7 [facility] Alkaline phosphatase [Enzyma tic activity/volume] in Serum or PlasmaOrdered By: Analia Holliday on 05-30-2023 ALP [Catalytic activity/Vol] 44 U/L Normal 34-104 [facility] Comment on above: Order Comment: Reaso n for Exam Well adult exam Performed By: #### V [id number], TSH3, CMP wRFX A1C, LIPID, CBC, FE PRO, [id number] #### [facility] [address] [place] [address] [place] Aspartate aminotransferase [ Enzymatic activity/volume] in Serum or PlasmaOrdered By: Analia Holliday on 05-30-2023 AST [Catalytic activity/Vol] 16 U/L Normal 13-39 [facility] Comment on above: Order Comment: Reaso n for Exam Well adult exam Performed By: #### V [id number], TSH3, CMP wRFX A1C, LIPID, CBC, FE PRO, [id number] #### [address] Automated basophil %Ordered By: Analia Holliday on 05-30-2023 Basophils/100 WBC (Bld) 0.8 % Normal . [facility] Comment on above: Order Comment: Reaso n for Exam Well adult exam Performed By: #### V [id number], TSH3, CMP wRFX A1C, LIPID, CBC, FE PRO, [id number] #### [address] Automated basophil countOrde red By: Analia Holliday on 05-30-2023 Basophils (Bld) [#/Vol] 0.0 10*3/uL Normal 0.0-0.2 [facility] Comment on above: Order Comment: Reaso n for Exam Well adult exam Result Comment: PERF ORMED BY: [place] [address] PATHOLOGIST GARMENT EXAMINER RY BUTTERFIELD M.D. Performed By: #### V [id number], TSH3, CMP wRFX A1C, LIPID, CBC, FE PRO, [id number] #### [address] Automated blood monocyte cou ntOrdered By: Analia Holliday on 05-30-2023 Monocytes (Bld) [#/Vol] 0.5 10*3/uL Normal 0.0-0.8 [facility] Comment on above: Order Comment: Reaso n for Exam Well adult exam Performed By: #### V [id number], TSH3, CMP wRFX A1C, LIPID, CBC, FE PRO, [id number] #### [address] Automated eosinophil %Ordere d By: Analia Holliday on 05-30-2023 Eosinophils/100 WBC (Bld) 3.8 % Normal . [facility] Comment on above: Order Comment: Reaso n for Exam Well adult exam Performed By: #### V [id number], TSH3, CMP wRFX A1C, LIPID, CBC, FE PRO, [id number] #### [facility] [address] Automated eosinophil countOr dered By: Analia Holliday on 05-30-2023 Eosinophils (Bld) [#/Vol] 0.2 10*3/uL Normal 0.0-0.45 [facility] Comment on above: Order Comment: Reaso n for Exam Well adult exam Performed By: #### V [id number], TSH3, CMP wRFX A1C, LIPID, CBC, FE PRO, [id number] #### [facility] [address] Automated monocyte %Ordered By: Analia Holliday on 05-30-2023 Monocytes/100 WBC (Bld) 9.5 % Normal . [facility] Comment on above: Order Comment: Reaso n for Exam Well adult exam Performed By: #### V [id number], TSH3, CMP wRFX A1C, LIPID, CBC, FE PRO, [id number] #### [facility] [address] [place] [id number] [facility] Automated neutrophil %Ordere d By: Analia Holliday on 05-30-2023 Neutrophils/100 WBC (Bld) 46.6 % Normal . [facility] Comment on above: Order Comment: Reaso n for Exam Well adult exam Performed By: #### V [id number], TSH3, CMP wRFX A1C, LIPID, CBC, FE PRO, [id number] #### [facility] [address] [place] [address] [place] Bilirubin.total [Mass/volume ] in Serum or PlasmaOrdered By: Analia Holliday on 05-30-2023 Bilirubin [Mass/Vol] 0.6 mg/dL Normal 0.3-1.0 [facility] Comment on above: Order Comment: Reaso n for Exam Well adult exam Performed By: #### V [id number], TSH3, CMP wRFX A1C, LIPID, CBC, FE PRO, [id number] #### [facility] [address] CMP with reflex to A1Con Albumin [Mass/Vol] 4.6 g/dL Normal 3.5-5.7 [facility] Comment on above: Order Comment: Reaso n for Exam Well adult exam Performed By: #### V [id number], TSH3, CMP wRFX A1C, LIPID, CBC, FE PRO, [id number] #### [facility] [address] GFR/1.73 sq M.predicted MDRD (S/P/Bld) [Vol rate/Area] mL/min/{1.73_m2} Normal [facility] Comment on above: Order Comment: Reaso n for Exam Well adult exam Performed By: #### V [id number], TSH3, CMP wRFX A1C, LIPID, CBC, FE PRO, [id number] #### [facility] [address] [place] [address] Calcium [Mass/volume] in Ser um or PlasmaOrdered By: Analia Holliday on 05-30-2023 Calcium [Mass/Vol] 9.5 mg/dL Normal 8.6-10.3 [facility] Comment on above: Order Comment: Reaso n for Exam Well adult exam Performed By: #### V [id number], TSH3, CMP wRFX A1C, LIPID, CBC, FE PRO, [id number] #### [facility] [address] Carbon dioxide, total [Moles /volume] in Serum or PlasmaOrdered By: Analia Holliday on 05-30-2023 CO2 [Moles/Vol] 27.5 mmol/L Normal 21.0-31.0 [facility] Comment on above: Order Comment: Reaso n for Exam Well adult exam Performed By: #### V [id number], TSH3, CMP wRFX A1C, LIPID, CBC, FE PRO, [id number] #### [facility] [address] [place] [address] [place] Chloride [Moles/volume] in S leobardo or PlasmaOrdered By: Analia Holliday on 05-30-2023 Chloride [Moles/Vol] 106 mmol/L Normal 98-107 [facility] Comment on above: Order Comment: Reaso n for Exam Well adult exam Performed By: #### V [id number], TSH3, CMP wRFX A1C, LIPID, CBC, FE PRO, [id number] #### [facility] [address] [place] [id number] [place] Cholesterol [Mass/volume] in Serum or PlasmaOrdered By: Analia Holliday on 05-30-2023 Cholesterol [Mass/Vol] 169 mg/dL Normal 140-200 [facility] Comment on above: Chol less than 200 m g/dl low riskChol 201-239 mg/dl borderline riskChol 240 mg/dl and greater high risk Order Comment: Reaso n for Exam Well adult exam Result Comment: Chol less than 200 mg/dl low risk Chol 201-239 mg/dl borderline risk Chol 240 mg/dl and greater high risk Performed By: #### V [id number], TSH3, CMP wRFX A1C, LIPID, CBC, FE PRO, [id number] #### [facility] [address] [place] [id number] [place] Cholesterol in LDL Calc [Mas s/Vol]Ordered By: Analia Holliday on 05-30-2023 Cholesterol in LDL [Mass/Vol] 100 mg/dL 0-100 [facility] Comment on above: LDL ATP III CLASSIFI CATIONLDL less than 100 mg/dL OptimalLDL 100-129 mg/dL Near or above optimalLDL 130-159 mg/dL Borderline highLDL 160-189 mg/dL HighLDL greater than 189 mg/dL Very high Cholesterol in VLDL Calc [Ma ss/Vol]Ordered By: Analia Holliday on 05-30-2023 Cholesterol in VLDL [Mass/Vol] 8 mg/dL [facility] Complete Blood Count Auto Di ffon 05-30-2023 Mean Corpuscular HGB Conc 34.1 g/dL Normal 32.0-35.0 [facility] Comment on above: Order Comment: Reaso n for Exam Well adult exam Performed By: #### V [id number], TSH3, CMP wRFX A1C, LIPID, CBC, FE PRO, [id number] #### [facility] [address] NRBC% 0.1 /100{WBC} Normal 0-0.5 [facility] Comment on above: Order Comment: Reaso n for Exam Well adult exam Performed By: #### V [id number], TSH3, CMP wRFX A1C, LIPID, CBC, FE PRO, [id number] #### [facility] [address] Creatinine [Mass/volume] in Serum or PlasmaOrdered By: Analia Holliday on 05-30-2023 Creatinine [Mass/Vol] 0.66 mg/dL Normal 0.60-1.[address] [facility] Comment on above: Order Comment: Reaso n for Exam Well adult exam Performed By: #### V [id number], TSH3, CMP wRFX A1C, LIPID, CBC, FE PRO, [id number] #### [facility] [address] Erythrocyte distribution wid th [Ratio] by Automated countOrdered By: Analia Holliday on 05-30-2023 Erythrocyte distribution width (RBC) [Ratio] 12.3 % Normal 11.9-15.3 [facility] Comment on above: Order Comment: Reaso n for Exam Well adult exam Performed By: #### V [id number], TSH3, CMP wRFX A1C, LIPID, CBC, FE PRO, [id number] #### [facility] [address] [place] [address] Erythrocytes [#/volume] in B lood by Automated countOrdered By: Analia Holliday on 05-30-2023 RBC (Bld) [#/Vol] 4.30 10*6/uL Normal 3.60-5.00 [facility] Comment on above: Order Comment: Reaso n for Exam Well adult exam Performed By: #### V [id number], TSH3, CMP wRFX A1C, LIPID, CBC, FE PRO, [id number] #### [facility] [address] [place] [address] [place] FE PROon 05-30-2023 % Iron Saturation 33.2 % Normal 20-50 [facility] Comment on above: Order Comment: Reaso n for Exam Well adult exam Performed By: #### V [id number], TSH3, CMP wRFX A1C, LIPID, CBC, FE PRO, [id number] #### [facility] [address] [place] [address] [facility] Total Iron Binding Capacity 349 ug/dL Normal 255-450 [facility] Comment on above: Order Comment: Reaso n for Exam Well adult exam Performed By: #### V [id number], TSH3, CMP wRFX A1C, LIPID, CBC, FE PRO, [id number] #### [facility] [address] [place] [address] [place] Ferritin [Mass/volume] in Se rum or PlasmaOrdered By: Analia Holliday on 05-30-2023 Ferritin [Mass/Vol] 38.7 ng/mL Normal 11.0-306.8 [facility] Comment on above: Order Comment: Reaso n for Exam Well adult exam Performed By: #### V [id number], TSH3, CMP wRFX A1C, LIPID, CBC, FE PRO, [id number] #### [facility] [address] [place] [address] [facility] Folate [Mass/volume] in Seru m or PlasmaOrdered By: Analia Holliday on 05-30-2023 Folate [Mass/Vol] 23.0 ng/mL >5.9 [facility] Comment on above: Folate reference ran ge: >5.9 ng/mlThe WHO technical consultation on folate and vitamin [id number] has determined that folate concentrations lessthan 4 ng/ml are considered deficient. Glucose [Mass/volume] in Ser um or PlasmaOrdered By: Analia Holliday on 05-30-2023 Glucose [Mass/Vol] 89 mg/dL Normal 70-100 [facility] Comment on above: Order Comment: Reaso n for Exam Well adult exam Performed By: #### V [id number], TSH3, CMP wRFX A1C, LIPID, CBC, FE PRO, [id number] #### [facility] [address] [place] [id number] [place] Hematocrit [Volume Fraction] of Blood by Automated countOrdered By: Analia Holliday on 05-30-2023 Hematocrit (Bld) [Volume fraction] 39.8 % Normal 34.0-46.4 [facility] Comment on above: Order Comment: Reaso n for Exam Well adult exam Performed By: #### V [id number], TSH3, CMP wRFX A1C, LIPID, CBC, FE PRO, [id number] #### [facility] [address] Hemoglobin [Mass/volume] in BloodOrdered By: Analia Holliday on 05-30-2023 Hemoglobin (Bld) [Mass/Vol] 13.6 g/dL Normal 11.8-15.4 [facility] Comment on above: Order Comment: Reaso n for Exam Well adult exam Performed By: #### V [id number], TSH3, CMP wRFX A1C, LIPID, CBC, FE PRO, [id number] #### [facility] [address] Iron [Mass/volume] in Serum or PlasmaOrdered By: Analia Holliday on 05-30-2023 Iron [Mass/Vol] 116 ug/dL Normal 50-212 [facility] Comment on above: Order Comment: Reaso n for Exam Well adult exam Performed By: #### V [id number], TSH3, CMP wRFX A1C, LIPID, CBC, FE PRO, [id number] #### [facility] [address] [place] [id number] [place] Iron binding capacity [Mass/ volume] in Serum or PlasmaOrdered By: Analia Holliday on 05-30-2023 Iron binding capacity [Mass/Vol] 349 ug/dL 255-450 [facility] Iron saturation [Mass Fracti on] in Serum or PlasmaOrdered By: Analia Holliday on 05-30-2023 Iron saturation [Mass fraction] 33.2 % 20-50 [facility] Leukocytes [#/volume] correc shena for nucleated erythrocytes in Blood by Automated counOrdered By: Analia Holliday on 05-30-2023 WBC corrected for nucl RBC Auto (Bld) [#/Vol] 5.0 10*3/uL 3.8-11.6 [facility] Leukocytes [#/volume] in Blo od by Automated countOrdered By: Analia Holliday on 05-30-2023 WBC (Bld) [#/Vol] 5.0 10*3/uL Normal 3.8-11.6 [facility] Comment on above: Order Comment: Reaso n for Exam Well adult exam Performed By: #### V [id number], TSH3, CMP wRFX A1C, LIPID, CBC, FE PRO, [id number] #### [facility] [address] Lipid Panelon 05-30-2023 LDL Cholesterol,Calculate d 100 mg/dL Normal 0-100 [facility] Comment on above: Order Comment: Reaso n for Exam Well adult exam Result Comment: LDL ATP III CLASSIFICATION LDL less than 100 mg/dL Optimal LDL 100-129 mg/dL Near or above optimal LDL 130-159 mg/dL Borderline high LDL 160-189 mg/dL High LDL greater than 189 mg/dL Very high Performed By: #### V [id number], TSH3, CMP wRFX A1C, LIPID, CBC, FE PRO, [id number] #### [facility] [address] Triglyceride w/Reflex 42 mg/dL Normal 0-149 [facility] Comment on above: Order Comment: Reaso n for Exam Well adult exam Result Comment: TRIG ATP III CLASSIFICATION TRIG less than 150 mg/dL Normal TRIG 150-199 mg/dL Borderline high TRIG 200-500 mg/dL High TRIG greater than 500 mg/dL Very high Standard traceable to the Center for Disease Conrtrol and Prevention (CDC) test method. Performed By: #### V [id number], TSH3, CMP wRFX A1C, LIPID, CBC, FE PRO, [id number] #### [facility] [address] [place] [address] [place] VLDL CHOLESTEROL 8 mg/dL Normal [facility] Comment on above: Order Comment: Reaso n for Exam Well adult exam Performed By: #### V [id number], TSH3, CMP wRFX A1C, LIPID, CBC, FE PRO, [id number] #### [facility] [address] [place] [address] [place] Lymphocytes [#/volume] in Bl ood by Automated countOrdered By: Analia Holliday on 05-30-2023 Lymphocytes (Bld) [#/Vol] 2.0 10*3/uL Normal 1.00-4.8 [facility] Comment on above: Order Comment: Reaso n for Exam Well adult exam Performed By: #### V [id number], TSH3, CMP wRFX A1C, LIPID, CBC, FE PRO, [id number] #### [place] [address] [place] Lymphocytes/100 leukocytes i n Blood by Automated countOrdered By: Analia Holliday on 05-30-2023 Lymphocytes/100 WBC (Bld) 39.3 % Normal . [facility] Comment on above: Order Comment: Reaso n for Exam Well adult exam Performed By: #### V [id number], TSH3, CMP wRFX A1C, LIPID, CBC, FE PRO, [id number] #### [facility] [address] [place] [address] MCH [Entitic mass] by Automa shena countOrdered By: Analia Holliday on 05-30-2023 MCH (RBC) [Entitic mass] 31.6 pg Normal 24.7-34.3 [facility] Comment on above: Order Comment: Reaso n for Exam Well adult exam Performed By: #### V [id number], TSH3, CMP wRFX A1C, LIPID, CBC, FE PRO, [id number] #### [facility] [address] [place] [address] MCHC Auto (RBC) [Mass/Vol]Or dered By: Analia Holliday on 05-30-2023 MCHC (RBC) [Mass/Vol] 34.1 g/dL 32.0-35.[address] [facility] MCV [Entitic volume] by Auto mated countOrdered By: Analia Holliday on 05-30-2023 MCV (RBC) [Entitic vol] 92.6 fL Normal 80-100 [facility] Comment on above: Order Comment: Reaso n for Exam Well adult exam Performed By: #### V [id number], TSH3, CMP wRFX A1C, LIPID, CBC, FE PRO, [id number] #### [facility] [address] Neutrophils [#/volume] in Bl ood by Automated countOrdered By: Analia Holliday on 05-30-2023 Neutrophils (Bld) [#/Vol] 2.3 10*3/uL Normal 1.8-7.7 [facility] Comment on above: Order Comment: Reaso n for Exam Well adult exam Performed By: #### V [id number], TSH3, CMP wRFX A1C, LIPID, CBC, FE PRO, [id number] #### [facility] [address] [place] [address] No Panel InformationOrdered By: Analia Holliday on 05-30-2023 Estimated GFR (CKD-EPI) > 60.0 mL/Min [facility] Creatinine Clearance (Chem N/A [facility] Nucleated erythrocytes [Pres ence] in Blood by Automated countOrdered By: Analia Holliday on 05-30-2023 Nucleated RBC Auto Ql (Bld) 0.1 /100{WBC} 0-0.5 [facility] Platelet mean volume [Entiti c volume] in Blood by Automated countOrdered By: Analia Holliday on 05-30-2023 Platelet mean volume (Bld) [Entitic vol] 9.7 fL Normal 6.3-10.7 [facility] Comment on above: Order Comment: Reaso n for Exam Well adult exam Performed By: #### V [id number], TSH3, CMP wRFX A1C, LIPID, CBC, FE PRO, [id number] #### [facility] [address] [place] [address] Platelets [#/volume] in Bloo d by Automated countOrdered By: Analia Holliday on 05-30-2023 Platelets (Bld) [#/Vol] 198 10*3/uL Normal 150-450 [facility] Comment on above: Order Comment: Reaso n for Exam Well adult exam Performed By: #### V [id number], TSH3, CMP wRFX A1C, LIPID, CBC, FE PRO, [id number] #### [facility] [address] [place] [address] [place] Potassium [Moles/volume] in Serum or PlasmaOrdered By: Analia Holliday on 05-30-2023 Potassium [Moles/Vol] 4.2 mmol/L Normal 3.5-5.[address] [facility] Comment on above: Order Comment: Reaso n for Exam Well adult exam Performed By: #### V [id number], TSH3, CMP wRFX A1C, LIPID, CBC, FE PRO, [id number] #### [facility] [address] [place] [address] [place] Protein [Mass/volume] in Ser um or PlasmaOrdered By: Analia Holliday on 05-30-2023 Protein [Mass/Vol] 7.1 g/dL Normal 6.4-8.9 [facility] Comment on above: Order Comment: Reaso n for Exam Well adult exam Performed By: #### V [id number], TSH3, CMP wRFX A1C, LIPID, CBC, FE PRO, [id number] #### [facility] [address] Serum globulin measurement b y calculation (mass/volume)Ordered By: Analia Holliday on 05-30-2023 Globulin (S) [Mass/Vol] 2.5 g/dL Normal [facility] Comment on above: Order Comment: Reaso n for Exam Well adult exam Performed By: #### V [id number], TSH3, CMP wRFX A1C, LIPID, CBC, FE PRO, [id number] #### [facility] [address] [place] [id number] [place] Serum or plasma albumin/glob ulin mass ratioOrdered By: Analia Holliday on 05-30-2023 Albumin/Globulin [Mass ratio] 1.8 {ratio} Normal [facility] Comment on above: Order Comment: Reaso n for Exam Well adult exam Performed By: #### V [id number], TSH3, CMP wRFX A1C, LIPID, CBC, FE PRO, [id number] #### [facility] [address] Serum or plasma anion gap de terminationOrdered By: Analia Holliday on 05-30-2023 Anion gap [Moles/Vol] 8.7 mmol/L Normal 6.0-15.[address] [facility] Comment on above: Order Comment: Reaso n for Exam Well adult exam Performed By: #### V [id number], TSH3, CMP wRFX A1C, LIPID, CBC, FE PRO, [id number] #### [facility] [address] Serum or plasma high density lipoprotein (HDL) cholesterol measurementOrdered By: Analia Holliday on 05-30-2023 Cholesterol in HDL [Mass/Vol] 61 mg/dL Normal 23-92 [facility] Comment on above: HDL CHOL ATP-III CLA SSIFICATION Cardiovascular RiskHDL > or equal to 60 mg/dL LOWHDL < 40 mg/dL HIGH Order Comment: Reaso n for Exam Well adult exam Result Comment: HDL CHOL ATP-III CLASSIFICATION Cardiovascular Risk HDL > or equal to 60 mg/dL LOW HDL < 40 mg/dL HIGH Performed By: #### V [id number], TSH3, CMP wRFX A1C, LIPID, CBC, FE PRO, [id number] #### [facility] [address] Serum or plasma total choles terol/high density lipoprotein (HDL) cholesterol mass ratOrdered By: Analia Holliday on 05-30-2023 Cholesterol.total/Cho lesterol in HDL [Mass ratio] 2.8 {ratio} Normal <5.0 [facility] Comment on above: Order Comment: Reaso n for Exam Well adult exam Performed By: #### V [id number], TSH3, CMP wRFX A1C, LIPID, CBC, FE PRO, [id number] #### [facility] [address] [place] [address] [place] Sodium [Moles/volume] in Ser um or PlasmaOrdered By: Analia Holliday on 05-30-2023 Sodium [Moles/Vol] 138 mmol/L Normal 136-145 [facility] Comment on above: Order Comment: Reaso n for Exam Well adult exam Performed By: #### V [id number], TSH3, CMP wRFX A1C, LIPID, CBC, FE PRO, [id number] #### [facility] [address] Thyrotropin [Units/volume] i n Serum or PlasmaOrdered By: Analia Holliday on 05-30-2023 TSH Qn 0.95 m[IU]/L Normal 0.45-5.33 [facility] Comment on above: Order Comment: Reaso n for Exam Well adult exam Performed By: #### V [id number], TSH3, CMP wRFX A1C, LIPID, CBC, FE PRO, [id number] #### [facility] [address] [place] [address] [place] Transferrin [Mass/volume] in Serum or PlasmaOrdered By: Analia Holliday on 05-30-2023 Transferrin [Mass/Vol] 249 mg/dL Normal 203-362 [facility] Comment on above: Order Comment: Reaso n for Exam Well adult exam Performed By: #### V [id number], TSH3, CMP wRFX A1C, LIPID, CBC, FE PRO, [id number] #### [facility] [address] Triglyceride [Mass/volume] i n Serum or PlasmaOrdered By: Analia Holliday on 05-30-2023 Triglyceride [Mass/Vol] 42 mg/dL 0-149 [facility] Comment on above: TRIG ATP III CLASSIF ICATIONTRIG less than 150 mg/dL NormalTRIG 150-199 mg/dL Borderline highTRIG 200-500 mg/dL High TRIG greater than 500 mg/dL Very highStandard traceable to the Center for Disease Conrtrol and Prevention (CDC) test method. Urea nitrogen [Mass/volume] in Serum or PlasmaOrdered By: Analia Holliday on 11-08-2023 Urea nitrogen [Mass/Vol] 12 mg/dL Normal 7-25 [facility] Comment on above: Order Comment: Reaso n for Exam Well adult exam Performed By: #### V [id number], TSH3, CMP wRFX A1C, LIPID, CBC, FE PRO, [id number] #### [facility] [address] [place] [id number] [facility] Vit. B12/Folate Profileon Folate 23.0 ng/mL Normal >5.9 [facility] Comment on above: Order Comment: Reaso n for Exam Well adult exam Result Comment: Pina te reference range: >5.9 ng/ml The WHO technical consultation on folate and vitamin b12 deficiencies has determined that folate concentrations less than 4 ng/ml are considered deficient. Performed By: #### V [id number], TSH3, CMP wRFX A1C, LIPID, CBC, FE PRO, [id number] #### [facility] [address] [id number] [facility] Vitamin B12 ser/plasOrdered By: Analia Holliday on 05-30-2023 Cobalamin (Vitamin B12) [Mass/Vol] 630 pg/mL Normal 180-914 [facility] Comment on above: Order Comment: Reaso n for Exam Well adult exam Performed By: #### V [id number], TSH3, CMP wRFX A1C, LIPID, CBC, FE PRO, [id number] #### [facility] [address] [id number] [facility] Vitamin D 25 Hydroxy Totalon 05-30-2023 Vitamin D 25 Hydroxy Total 27.7 ng/mL Low 30-100 [facility] Comment on above: Order Comment: Reaso n for Exam Well adult exam Result Comment: ANN MARIE MIN D STATUS 25(OH)VITAMIN D RANGE (ng/mL) Deficient <20 Insufficient 20 to <30 Sufficient 30 to 100 Reference: Chichi MF,Manpreet SOOD, Doe COLEMAN, et al. Evaluation,treatment, and prevention of vitamin D deficiency; an Endocrine Society clinical practice guideline. JCEM. 2010; 96(7):1911-30. PERFORMED BY: [place] [address] PATHOLOGIST GARMENT EXAMINER RY BUTTERFIELD M.D. Performed By: #### V [id number], TSH3, CMP wRFX A1C, LIPID, CBC, FE PRO, [id number] #### [facility] [address] Vitamin D+Metabolites [Mass/ volume] in Serum or PlasmaOrdered By: Analia Holliday on 05-30-2023 Vitamin D+Metabolites [Mass/Vol] 27.7 ng/mL 30-100 [facility] Comment on above: VITAMIN D STATUS 25( [place])VITAMIN D RANGE (ng/mL) Deficient <20 Insufficient 20 to <30Sufficient 30 to 100Reference: Chichi MF,Manpreet SOOD, Doe COLEMAN, et al. Evaluation,treatment, and prevention of vitamin D deficiency; an Endocrine Society clinical practice guideline. JCEM. 2010; 96(7):1911-30. CNOVon 05-22-2023 OV Office Visit ([facility] ) ----- ROSA ALONZO Jovana ([id number]) 2000 F Date Time Provider Department 05/22/23 11:20 AM DARA BUTLER JR [facility] During your visit today, we recorded the following information about you: Weight Height 52.3 kg 1.626 m Dara Butler Jr., 05/22/2023 12:18 PM Signed Patient presents with: Follow Up HPI: Rosa Jovana [place], 22 year old female, for followup. [...] last colonoscopy was 8 months ago in [place]. Past GI workup 05/08/23 ER visit notes [...] 04/19/2023 8:00 AM EDT Office Visit [facility] [place] [address] Kyree Noguera MD Abnormal flushing and sweating [...] per patient. She sees a specialist to [facility] doctor Luke for GI- currently awaiting genetic testing for pancreatitis noted on CT scan. Patient presents today after having three episodes of diarrhea and noticing that her stool was pale/white appearing, denies blood or pus. She has had nausea this morning and one episode of vomiti ng. 02/06/23 last OV notes as follows: Rosa Watkins [place], 22 year old female, [...] 6 months (more content not included)... Normal [facility] Christine 05-03-2023 ANA Telephone (LENA) ----- CLINTONROSA Newberry Jovana ([id number]) 2000 F Date Time Provider Department 05/03/23 LUKE CANSECO, DARA PAREDES During your visit today, we recorded the [...] 10 mg by mouth once daily. - yntpji-ccwwfiqk-hkspeue (ZENPEP) 40,000-126,000- 168,000 unit delayed release capsule [...] by ANALIA ESTEVEZ RN on 05/03/23 Normal [facility] C diff Tox gens Stl Ql RUCHI+p robeon 05-01-2023 C. difficile toxin genes RUCHI+probe Ql (Stl) Negative Normal Negative for C. difficile toxin by PCR [facility] Comment on above: Order Comment: Speci men Type: STOOL SPECIMENOrdering Facility: [facility] Address: [address] [place] [address] Performed By: #### 5 4067-4 ####[facility] [id number] [place] [address] [place] FECAL LACTOFERRIN/LEUKOCYTES on 05-01-2023 Lactoferrin IA Ql (Stl) Negative for lactoferrin, which may indicate the absence of fecal white blood cells Normal Negative [facility] Comment on above: Order Comment: Speci men Type: STOOL SPECIMENOrdering Facility: [facility] Address: [address] [place] [address] Performed By: #### F ECWBC ####[facility] [id number] [place] [address] [place] G lamblia+Cryptosp Ag Stl Ql IAon 05-01-2023 G. lamblia+Cryptosporidi um sp Ag IA Ql (Stl) CRYPTOSPORIDIUM ANTIGEN BY EIA: Negative for Cryptosporidium by EIA. GIARDIA ANTIGEN BY EIA: Negative for Giardia lamblia by EIA. Normal [facility] Comment on above: Performed By: #### 4 8059-0 ####[facility] LABIA [id number] [place] [address] [place] Gastrointestinal pathogens i dentified RUCHI+probe Nom (Stl)on 05-01-2023 Campylobacter sp DNA RUCHI+probe Nom (Unsp spec) Not detected Normal Not Detected [facility] Comment on above: Order Comment: Speci men Type: STOOL SPECIMENOrdering Facility: [facility] Address: [address] [place] [address] Performed By: #### 7 9390-1 ####[facility] LABCLIA [id number] [address] [place] Salmonella sp DNA RUCHI+probe Ql (Unsp spec) Not detected Normal Not Detected [facility] Comment on above: Order Comment: Speci men Type: STOOL SPECIMENOrdering Facility: [facility] Address: [address] [place] [address] Performed By: #### 7 9390-1 ####[facility] LABIA [id number] [address] [place] Shiga toxin stx gene RUCHI+probe Nom (Unsp spec) Not detected Normal Not Detected [facility] Comment on above: Order Comment: Speci men Type: STOOL SPECIMENOrdering Facility: [facility] Address: [address] [place] [address] Performed By: #### 7 9390-1 ####[facility] LABIA [id number] [address] [place] Shigella sp DNA RUHCI+probe Ql (Unsp spec) Not detected Normal Not Detected [facility] Comment on above: Order Comment: Speci men Type: STOOL SPECIMENOrdering Facility: [facility] Address: [address] [place] [address] Performed By: #### 7 9390-1 ####[facility] LABIA [id number] [address] [place] Christine 04-14-2023 ANA Telephone (LENA) ----- ROSA ALONZO ([id number]) 2000 F Date Time Provider Department 04/14/23 [...] AM Signed Patient has viewed results per [facility]. Analia Estevez RN Allergies As of Date: [...] mouth three times daily with meals. - sjerik-ewcouwvg-sxwankg (ZENPEP) 40,000-126,000- 168,000 unit delayed release capsule [...] Status:Closed by ANALIA ESTEVEZ RN on 04/14/23 [facility] 04-13-2023 ALLIED [facility] HNO ID: [id number] Author: Yessi Adkins MRI Tech Service: Radiology Author Type: Director [place] Sales Type: Allied Health Filed: 04/13/2023 3:14 PM [...] DEPARTMENT: MR; Exam(s) Completed: Body: Pancreas/Biliary SIGNATURE: ANNA Hernandez PATIENT NAME: Rosa Alonzo DATE: April 13, 2023 TIME: 3:13 PM [facility] MRI ABDOMEN WO/W IVCONon MRI ABDOMEN WO/W IVCON * * *Final Report* * * DATE OF EXAM: Apr 13 2023 3:23PM [facility] 0689 - MRI ABDOMEN WO/W IVCON / [...] acute or chronic pancreatitis. No pancreatic divisum. Cigarette Book Maker: [facility] Transcribe Date/Time: Apr 13 2023 3:30P Dictated by : ERIC VILLAR MD This examination was interpreted and the report reviewed and electronically signed by: ERIC VILLAR MD on Apr 13 2023 3:50PM EST [id number] [facility] ----- ROSA ALONZO ([id number]) 2000 F Date Time Provider Department 04/12/23 SALMA ALTAMIRANO ([facility] [employer] [facility] During your visit today, we recorded the [...] mouth three times daily with meals. - twkijy-ednqovnm-pnicxzi (ZENPEP) 40,000-126,000- 168,000 unit delayed release capsule [...] Encounter Status:Closed by SALMA SIMPSON on 04/12/23 Normal [facility] C diff Tox gens Stl Ql RUCHI+p rae 03-29-2023 C. difficile toxin genes RUCHI+probe Ql (Stl) Negative Normal Negative for C. difficile toxin by PCR [facility] Comment on above: Order Comment: Speci men Type: STOOL SPECIMENOrdering Facility: [facility] Address: [address] [id number] Performed By: #### 5 4067-4 ####[facility] LABCLIA [id number] [facility] [id number] CNPMckayla 03-23-2023 CNPN Telephone ([facility]) ----- CLINTONROSA ([id number]) 2000 F Date Time Provider Department 03/23/23 DARA BUTLER JR [facility] During your visit today, we recorded the following information about you: Eva Wynne 03/23/2023 9:03 AM Signed Rosa Alonzo is calling Dara Butler Jr., DO today to let provider know that she did test positive for CDIFF. She had this testing done through [facility]. She is working on getting faxed results to office. Pt states she feels fine, no symptoms but would like to follow up with nurse. Please advise Patient has been identified by name and birthdate. Duration of symptoms: N/A Person calling: self Call patient at: at home [phone] (home) [phone] (cell) Was an appointment scheduled: No Closing statement: Results or non-symptom based questions: Thank you for calling [facility], your call will be returned within the next business day. Analia Liao RN 03/30/2023 10:33 AM Signed ----- Message from Dara Butler Jr., DO sent at 03/30/2023 7:36 AM EDT ----- C.diff negative DO Herb Patton Jr., Jennifer RN 03/30/2023 10:34 AM Signed Patient has viewed results per mychart. Analia Estevez RN Allergies As of Date: [...] mouth three times daily with meals. - rhenwu-rmefpfdv-aomqbba (ZENPEP) 40,000-126,000- 168,000 unit delayed release capsule [...] by ANALIA ESTEVEZ RN on 03/30/23 Normal [facility] Christine 03-22-2023 CNPN Telephone ([facility]) ----- ROSA ALONZO ([id number]) 2000 F Date Time Provider Department 03/22/23 NAE IBARRA During your visit today, we recorded the following information about you: Nae Ibarra MD 03/22/2023 9:38 PM Signed Please Call patient if MyChart note not read to review results/released to My Chart if [facility]: Improved/Normal labs and no inflammation. Take over [...] mouth once daily for 14 days. - enjtpp-wltsjsru-cgzmhia (ZENPEP) 40,000-126,000- 168,000 unit delayed release capsule [...] Encounter Status:Closed by CHIARA PIZARRO on 03/23/23 [facility] Christine 03-21-2023 ANA Telephone (LENA) ----- ROSA ALONZO ([id number]) 2000 F Date Time Provider Department 03/21/23 [...] Signed Results were viewed by patient per mychart. Analia Estevez RN Allergies As of Date: [...] mouth once daily for 14 days. - ebwxva-qvccduug-mfqamcd (ZENPEP) 40,000-126,000- 168,000 unit delayed release capsule [...] by ANALIA ESTEVEZ RN on 03/21/23 Normal [facility] 25(OH)D3 [facility] 20[facility] 25-hydroxyvitamin D3 [Mass/Vol] 32.5 ng/mL Normal 31.0-80.0 [facility] Comment on above: Order Comment: Speci men Type: BLOOD SPECIMENOrdering Facility: [facility] Address: [address] [address] Result Comment: Clas sification of 25 [place] Vitamin D status: Deficiency/Insufficiency: < or = 30 ng/ml. Sufficiency/Optimal Levels: 31-80 ng/mL Toxicity: > 100 ng/mL. Test performed by chemiluminescent immunoassay. Performed By: #### 1 989-3 ####[facility] LABIA [id number] [address] OF [facility] Amylase [Catalytic activity/Vol] 43 U/L Normal 30-104 [facility] Comment on above: Order Comment: Speci men Type: BLOOD SPECIMENOrdering Facility: [facility] Address: [address] [address] Performed By: #### 2 4331-1 ####[facility] LABIA [id number] [address] LABCLIA [id number] [place] [address]#### 1988-5, 1798-8, 3040-3 ####[facility] LABCLIA [id number] [facility] [id number] STATES OF [facility] CBC W Auto Differential pane l (Bld)on 03-16-2023 Basophils (Bld) [#/Vol] 0.06 10*3/uL Normal <0.11 [facility] Comment on above: Order Comment: Speci men Type: BLOOD SPECIMENOrdering Facility: [facility] Address: [address] [place] [address] Performed By: #### 5 7021-8 ####[facility] [id number] [place] [address] Basophils/100 WBC (Bld) 1.4 % Normal [facility] Comment on above: Order Comment: Speci men Type: BLOOD SPECIMENOrdering Facility: [facility] Address: [address] [place] [address] Performed By: #### 5 7021-8 ####[facility] [id number] [place] [address] Differential cell count method Nom (Bld) Auto Normal [facility] Comment on above: Order Comment: Speci men Type: BLOOD SPECIMENOrdering Facility: [facility] Address: [address] [place] [address] Performed By: #### 5 7021-8 ####[facility] [id number] [place] [address] Eosinophils (Bld) [#/Vol] 0.25 10*3/uL Normal <0.46 [facility] Comment on above: Order Comment: Speci men Type: BLOOD SPECIMENOrdering Facility: [facility] Address: [address] [place] [address] Performed By: #### 5 7021-8 ####[facility] [id number] [place] [address] Eosinophils/100 WBC (Bld) 5.6 % Normal [facility] Comment on above: Order Comment: Speci men Type: BLOOD SPECIMENOrdering Facility: [facility] Address: [address] [address] Performed By: #### 5 7021-8 ####[facility] [id number] [place] [address] Erythrocyte distribution width (RBC) [Ratio] 11.6 % Normal 11.5-15.0 [facility] Comment on above: Order Comment: Speci men Type: BLOOD SPECIMENOrdering Facility: [facility] Address: [address] [place] [address] Performed By: #### 5 7021-8 ####[facility] [id number] [place] [address] Hematocrit (Bld) [Volume fraction] 41.7 % Normal 36.0-46.0 [facility] Comment on above: Order Comment: Speci men Type: BLOOD SPECIMENOrdering Facility: [facility] Address: [address] [place] [address] Performed By: #### 5 7021-8 ####[facility] [id number] [place] [address] Hemoglobin (Bld) [Mass/Vol] 14.1 g/dL Normal 11.5-15.5 [facility] Comment on above: Order Comment: Speci men Type: BLOOD SPECIMENOrdering Facility: [facility] Address: [address] [address] Performed By: #### 5 7021-8 ####[facility] [id number] [place] [address] Immature granulocytes (Bld) [#/Vol] 10*3/uL Normal <0.10 [facility] Comment on above: Order Comment: Speci men Type: BLOOD SPECIMENOrdering Facility: [facility] Address: [address] [place] [address] Performed By: #### 5 7021-8 ####[facility] [id number] [place] [address] Immature granulocytes/100 WBC (Bld) 0.2 % Normal [facility] Comment on above: Order Comment: Speci men Type: BLOOD SPECIMENOrdering Facility: [facility] Address: [address] [place] [address] Performed By: #### 5 7021-8 ####[facility] [id number] [place] [address] Lymphocytes (Bld) [#/Vol] 2.17 10*3/uL Normal 1.00-4.00 [facility] Comment on above: Order Comment: Speci men Type: BLOOD SPECIMENOrdering Facility: [facility] Address: [address] [place] [address] Performed By: #### 5 7021-8 ####[facility] [id number] [place] [address] Lymphocytes/100 WBC (Bld) 48.9 % Normal [facility] Comment on above: Order Comment: Speci men Type: BLOOD SPECIMENOrdering Facility: [facility] Address: [address] [place] [address] Performed By: #### 5 7021-8 ####[facility] [id number] [place] [address] MCH (RBC) [Entitic mass] 31.5 pg Normal 26.0-34.0 [facility] Comment on above: Order Comment: Speci men Type: BLOOD SPECIMENOrdering Facility: [facility] Address: [address] [place] [address] Performed By: #### 5 7021-8 ####[facility] [id number] [place] [address] MCHC (RBC) [Mass/Vol] 33.8 g/dL Normal 30.5-36.0 [facility] Comment on above: Order Comment: Speci men Type: BLOOD SPECIMENOrdering Facility: [facility] Address: [address] [address] Performed By: #### 5 7021-8 ####[facility] [id number] [place] [address] MCV (RBC) [Entitic vol] 93.1 fL Normal 80.0-100.0 [facility] Comment on above: Order Comment: Speci men Type: BLOOD SPECIMENOrdering Facility: [facility] Address: [address] [place] [address] Performed By: #### 5 7021-8 ####[facility] [id number] [place] [address] Monocytes (Bld) [#/Vol] 0.36 10*3/uL Normal <0.87 [facility] Comment on above: Order Comment: Speci men Type: BLOOD SPECIMENOrdering Facility: [facility] Address: [address] [address] Performed By: #### 5 7021-8 ####[facility] [id number] [place] [address] Monocytes/100 WBC (Bld) 8.1 % Normal [facility] Comment on above: Order Comment: Speci men Type: BLOOD SPECIMENOrdering Facility: [facility] Address: [address] [place] [address] Performed By: #### 5 7021-8 ####[facility] [id number] [place] [address] Neutrophils (Bld) [#/Vol] 1.59 10*3/uL Normal 1.45-7.50 [facility] Comment on above: Order Comment: Speci men Type: BLOOD SPECIMENOrdering Facility: [facility] Address: [address] [place] [address] Performed By: #### 5 7021-8 ####[facility] [id number] [place] [address] Neutrophils/100 WBC (Bld) 35.8 % Normal [facility] Comment on above: Order Comment: Speci men Type: BLOOD SPECIMENOrdering Facility: [facility] Address: [address] [place] [address] Performed By: #### 5 7021-8 ####[facility] LABCLIA [id number] [place] [address] Nucleated RBC (Bld) [#/Vol] 10*3/uL Normal <0.01 [facility] Comment on above: Order Comment: Speci men Type: BLOOD SPECIMENOrdering Facility: [facility] Address: [address] [place] [address] Performed By: #### 5 7021-8 ####PATIENCEPAHIRO [facility] LABIA [id number] [place] [address] Nucleated RBC/100 WBC (Bld) [Ratio] 0.0 /100 WBC Normal [facility] Comment on above: Order Comment: Speci men Type: BLOOD SPECIMENOrdering Facility: [facility] Address: [address] [place] [address] Performed By: #### 5 7021-8 ####[facility] LABCLIA [id number] [place] [address] Platelet mean volume (Bld) [Entitic vol] 10.4 fL Normal 9.0-12.7 [facility] Comment on above: Order Comment: Speci men Type: BLOOD SPECIMENOrdering Facility: [facility] Address: [address] [place] [address] Performed By: #### 5 7021-8 ####[facility] [id number] [place] [address] Platelets (Bld) [#/Vol] 196 10*3/uL Normal 150-400 [facility] Comment on above: Order Comment: Speci men Type: BLOOD SPECIMENOrdering Facility: [facility] Address: [address] [address] Performed By: #### 5 7021-8 ####[facility] [id number] [place] [address] RBC (Bld) [#/Vol] 4.48 10*6/uL Normal 3.90-5.20 [facility] Comment on above: Order Comment: Speci men Type: BLOOD SPECIMENOrdering Facility: [facility] Address: [address] [address] Performed By: #### 5 7021-8 ####[facility] [id number] [place] [address] WBC (Bld) [#/Vol] 4.44 10*3/uL Normal 3.70-11.00 [facility] Comment on above: Order Comment: Speci men Type: BLOOD SPECIMENOrdering Facility: [facility] Address: [address] [address] Performed By: #### 5 7021-8 ####[facility] LAB[facility] [id number] [place] [address] CELIAC SCREENon 03-16-2023 GLIAD DEAMIDATED IGA QUAL Negative Normal Negative, Test not Indicated [facility] Comment on above: Order Comment: Speci men Type: BLOOD SPECIMENOrdering Facility: [facility] Address: [address] [place] [address] Result Comment: This is used as an aid in diagnosis of celiac disease. Clinical correlation is required. The following results were obtained with an [employer] QUANTA Lite Gliadin IgA LUKE Gliadin. Gliadin IgA values obtained with different manufacturers' assay methods may not be used interchangeably. The magnitude of the reported IgA levels cannot be correlated to an endpoint titer. Performed By: #### L [id number] ####[facility] LABCLIA [id number] [facility] [id number] [address] [place] Gliadin peptide IgA Qn (S) 3 Units Normal <20 [facility] Comment on above: Order Comment: [facility] Type: BLOOD SPECIMENOrdering Facility: [facility] Address: [address] [address] Performed By: #### L [id number] ####[facility] LABCLIA [id number] [address] [place] INTERPRETATION No serological evide nce of celiac disease, however, if celiac disease is clinically suspected and patient is not on gluten-free diet, histological diagnosis may be considered. HLA testing may help with risk assessment. Normal [facility] Comment on above: Order Comment: [facility] Type: BLOOD SPECIMENOrdering Facility: [facility] Address: [address] [address] Performed By: #### L [id number] ####[facility] LABCLIA [id number] [address] TRANSGLUTAMINASE IGA ABS INTERPRETATION Negative Normal Negative [facility] Comment on above: Order Comment: [facility] Type: BLOOD SPECIMENOrdering Facility: [facility] Address: [address] [address] Result Comment: The following results were obtained with [employer]ite R h-tTG IgA LUKE.???R h-tTG IgA values obtained with different manufacturers' assay methods may not be used interchangeably. The magnitude of the reported IgA levels cannot be corelated to an endpoint???concentration. This is used as an aid in diagnosis of celiac disease. Clinical correlation is required. Performed By: #### L CT4635 ####[facility] LABCLIA [id number] [address] [place] tTG IgA Qn (S) <2 Normal <4 [facility] Comment on above: Order Comment: [facility] Type: BLOOD SPECIMENOrdering Facility: [facility] Address: [address] [address] Performed By: #### L [id number] ####[facility] LABCLIA [id number] [address] CRP SerPl-mCncon 03-16-2023 CRP [Mass/Vol] mg/L Normal <0.9 [facility] Comment on above: Order Comment: Speci men Type: BLOOD SPECIMENOrdering Facility: [facility] Address: [address] [address] Performed By: #### 2 4331-1 ####[facility] LABCLIA [id number] [address] LABCLIA [id number] [place] [address]#### 1988-5, 1798-8, 3040-3 ####[facility] LABCLIA [id number] [address] Comprehensive metabolic 2000 panelon 03-16-2023 Albumin [Mass/Vol] 4.9 g/dL Normal 3.9-4.9 [facility] Comment on above: Order Comment: Speci men Type: BLOOD SPECIMENOrdering Facility: [facility] Address: [address] Performed By: #### 2 4323-8 ####[facility] [id number] [place] [address] ALP [Catalytic activity/Vol] 55 U/L Normal 34-123 [facility] Comment on above: Order Comment: Speci men Type: BLOOD SPECIMENOrdering Facility: [facility] Address: [address] Performed By: #### 2 4323-8 ####[facility] LABIA [id number] [place] [address] ALT [Catalytic activity/Vol] 10 U/L Normal 7-38 [facility] Comment on above: Order Comment: Speci men Type: BLOOD SPECIMENOrdering Facility: [facility] Address: [address] Performed By: #### 2 4323-8 ####[facility] LABCLIA [id number] [place] [address] Anion gap [Moles/Vol] 11 mmol/L Normal 9-18 [facility] Comment on above: Order Comment: Speci men Type: BLOOD SPECIMENOrdering Facility: [facility] Address: [address] [place] [address] Performed By: #### 2 4323-8 ####[facility] LABCL[facility] [id number] [place] [address] AST [Catalytic activity/Vol] 16 U/L Normal 13-35 [facility] Comment on above: Order Comment: Speci men Type: BLOOD SPECIMENOrdering Facility: [facility] Address: [address] [place] [address] Performed By: #### 2 4323-8 ####[facility]CL[facility] [id number] [place] [address] Bilirubin [Mass/Vol] 0.4 mg/dL Normal 0.2-1.3 [facility] Comment on above: Order Comment: Speci men Type: BLOOD SPECIMENOrdering Facility: [facility] Address: [address] [place] [address] Performed By: #### 2 4323-8 ####[facility] LABCL[facility] [id number] [place] [address] Calcium [Mass/Vol] 9.8 mg/dL Normal 8.5-10.2 [facility] Comment on above: Order Comment: Speci men Type: BLOOD SPECIMENOrdering Facility: [facility] Address: [address] [place] [address] Performed By: #### 2 4323-8 ####[facility] LABCL[facility] [id number] [place] [address] Chloride [Moles/Vol] 105 mmol/L Normal 97-105 [facility] Comment on above: Order Comment: Speci men Type: BLOOD SPECIMENOrdering Facility: [facility] Address: [address] [address] Performed By: #### 2 4323-8 ####[facility] [id number] [place] [address] CO2 [Moles/Vol] 26 mmol/L Normal 22-30 [facility] Comment on above: Order Comment: Speci men Type: BLOOD SPECIMENOrdering Facility: [facility] Address: [address] [address] Performed By: #### 2 4323-8 ####[facility] LABCL[facility] [id number] [place] [address] Creatinine [Mass/Vol] 0.71 mg/dL Normal 0.58-0.96 [facility] Comment on above: Order Comment: Speci men Type: BLOOD SPECIMENOrdering Facility: [facility] Address: [address] [place] [address] Performed By: #### 2 4323-8 ####[facility] LABCLIA [id number] [place] [address] Creatinine and Glomerular filtration rate.predicted panel (S/P/Bld) 122 mL/min/1.73m??? Normal >=60 [facility] Comment on above: Order Comment: Speci men Type: BLOOD SPECIMENOrdering Facility: [facility] Address: [address] [place] [address] Result Comment: Ny mated Glomerular Filtration Rate [...] actual GFR. Performed By: #### 2 4323-8 ####[facility] LABCL[facility] [id number] [place] [address] Glucose [Mass/Vol] 102 mg/dL High 74-99 [facility] Comment on above: Order Comment: Speci men Type: BLOOD SPECIMENOrdering Facility: [facility] Address: [address] [place] [address] Result Comment: The [place] Diabetes Association (ADA) provides guidance for cutoff [...] Standards of Medical Care in Diabetes 2016, [place] [employer]. Diabetes Care. 2016.39(Suppl 1). Performed By: #### 2 4323-8 ####[facility] LABCL[facility] [id number] [place] [address] Potassium [Moles/Vol] 4.4 mmol/L Normal 3.7-5.1 [facility] Comment on above: Order Comment: Speci men Type: BLOOD SPECIMENOrdering Facility: [facility] Address: [address] [place] [address] Performed By: #### 2 4323-8 ####[facility] LABCL[facility] [id number] [place] [address] Protein [Mass/Vol] 7.2 g/dL Normal 6.3-8.0 [facility] Comment on above: Order Comment: Speci men Type: BLOOD SPECIMENOrdering Facility: [facility] Address: [address] [place] [address] Performed By: #### 2 4323-8 ####[facility]CL[facility] [id number] [place] [address] Sodium [Moles/Vol] 142 mmol/L Normal 136-144 [facility] Comment on above: Order Comment: Speci men Type: BLOOD SPECIMENOrdering Facility: [facility] Address: [address] [place] [address] Performed By: #### 2 4323-8 ####[facility] LABCL[facility] [id number] [address] [id number] Urea nitrogen [Mass/Vol] 10 mg/dL Normal 7-21 [facility] Comment on above: Order Comment: Speci men Type: BLOOD SPECIMENOrdering Facility: [facility] Address: [address] [place] [address] Performed By: #### 2 4323-8 ####[facility] LABIA [id number] [address] [address] ESR Westergren method (Bld) [Velocity]on 03-16-2023 ESR (Bld) [Velocity] 2 mm/h Normal 0-20 [facility] Comment on above: Order Comment: Speci men Type: BLOOD SPECIMENOrdering Facility: [facility] Address: [address] [place] [address] Performed By: #### 4 537-7 ####[facility] LABIA [id number] [place] [address] [place] IGG SUBCLASS 1,2,3,4on 03-16 IgG subclass 1 (S) [Mass/Vol] 632.6 mg/dL Normal 382.4-928.6 [facility] Comment on above: Order Comment: Speci men Type: BLOOD SPECIMENOrdering Facility: [facility] Address: [address] [place] [address] Performed By: #### I G1234 ####[facility] LABIA [id number] [place] [address] [place] IgG subclass 2 (S) [Mass/Vol] 334.9 mg/dL Normal 241.8-700.3 [facility] Comment on above: Order Comment: Speci men Type: BLOOD SPECIMENOrdering Facility: [facility] Address: [address] [address] Performed By: #### I G1234 ####[facility] [id number] [address] OF [facility] IgG subclass 3 (S) [Mass/Vol] 32.5 mg/dL Normal 21.8-176.1 [facility] Comment on above: Order Comment: Speci men Type: BLOOD SPECIMENOrdering Facility: [facility] Address: [address] [place] [address] Performed By: #### I G1234 ####[facility] [id number] [address] [place] IgG subclass 4 (S) [Mass/Vol] 43.3 mg/dL Normal 3.9-86.4 [facility] Comment on above: Order Comment: Speci men Type: BLOOD SPECIMENOrdering Facility: [facility] Address: [address] [place] [address] Performed By: #### I G1234 ####[facility] [id number] [place] [address] [place] IgA SerPl-mCncon 03-16-2023 IgA [Mass/Vol] 174 mg/dL Normal 70-400 [facility] Comment on above: Order Comment: Speci men Type: BLOOD SPECIMENOrdering Facility: [facility] Address: [address] [place], [place] [address] Performed By: #### 2 458-8 ####[facility] [id number] [place] [address] [place] Lipase SerPl-cCncon 03-16-20 23 Lipase [Catalytic activity/Vol] 20 U/L Normal 16-61 [facility] Comment on above: Order Comment: Speci men Type: BLOOD SPECIMENOrdering Facility: [facility] Address: [address] [place] [address] Performed By: #### 2 4331- ####[facility] LABCLIA [id number] [address] [address] [facility] LABCLIA [id number] [place] [address]#### 1987-11, 1798-02, 3039-3 ####[facility] LABCLIA [id number] [address] [address] [place] Lipid 1996 panelon 3 Cholesterol [Mass/Vol] 202 mg/dL High <200 [facility] Comment on above: Order Comment: Speci men Type: BLOOD SPECIMENOrdering Facility: [facility] Address: [address] [place], [place] [address] Result Comment: <200 mg/dL, Desirable 200-239 mg/dL, Borderline high >239 mg/dL, High Performed By: #### 2 433-1 ####[facility] LABCLIA [id number] [address] LABCLIA [id number] [place] [address]#### 1987-11, 1798-02, 3 ####[facility] LABCLIA [id number] [address] [address] [place] Cholesterol in HDL [Mass/Vol] 63 mg/dL Normal >39 [facility] Comment on above: Order Comment: Speci men Type: BLOOD SPECIMENOrdering Facility: [facility] Address: [address] [place] [id number] Result Comment: 40-5 9 mg/dL, Acceptable >59 mg/dL, High: Negative risk factor for coronary heart disease <40 mg/dL, Low: Positive risk factor for coronary heart disease Performed By: #### 2 4331-1 ####[facility] LABCLIA [id number] [address] [address] [facility] LABCLIA [id number] [place] [address]#### 1987-, 1798-02, 3039-09 ####[facility] LABCLIA [id number] [address] [id number] [place] [facility] Cholesterol in LDL [Mass/Vol] 128 mg/dL High <100 [facility] Comment on above: Order Comment: Speci men Type: BLOOD SPECIMENOrdering Facility: [facility] Address: [address] [place] [address] Result Comment: <100 mg/dL, Optimal 100-129 mg/dL, Near optimal/above optimal 130-159 mg/dL, Borderline high 160-189 mg/dL, High >189 mg/dL, Very high Secondary prevention optimal LDL Cholesterol levels are recommended to be < 70 mg/dL Performed By: #### 2 4331-1 ####[facility] LABCLIA [id number] [address] LABCLIA [id number] [place] [address]#### 1987-11, 1798-02, 3039-09 ####[facility] LABCLIA [id number] [address] [place] Cholesterol in LDL/Cholesterol in HDL [Mass ratio] 2.03 {ratio} Normal <2.54 [facility] Comment on above: Order Comment: Speci men Type: BLOOD SPECIMENOrdering Facility: [facility] Address: [address] [place] [address] Result Comment: Refe rence: 1. National Cholesterol Education Program ATP III Guideline At-A-Glance Quick Desk Reference: National Heart, Lung, and Blood [place]. National Institutes of Health. 2001: NIH Publication No. 01-3305. 2. An International Atherosclerosis Society position paper: global recommendations for the management of dyslipidemia: executive summary, Atherosclerosis. 2014: 232(2):410-413. Performed By: #### 2 4331-1 ####[facility] LABCLIA [id number] [address] [address] [facility] LABCLIA [id number] [place] [address]#### 1987-11, 1798-02, 3 ####[facility] LABCLIA [id number] [address] [id number] [place] Cholesterol in VLDL [Mass/Vol] 11 mg/dL Normal <30 [facility] Comment on above: Order Comment: Speci men Type: BLOOD SPECIMENOrdering Facility: [facility] Address: [address] [place] [address] Performed By: #### 2 4331-1 ####[facility] LABCLIA [id number] [address] LABCLIA [id number] [place] [address]#### 1987-11, 1798-02, 3039-09 ####[facility] LABCLIA [id number] [place] [address] [place] Cholesterol non HDL [Mass/Vol] 139 mg/dL High <130 [facility] Comment on above: Order Comment: Speci men Type: BLOOD SPECIMENOrdering Facility: [facility] Address: [address] [place] [address] Result Comment: <130 mg/dL, Optimal 130-159 mg/dL, Near optimal/above optimal 160-189 mg/dL, Borderline high 190-219 mg/dL, High >219 mg/dL, Very high Secondary prevention optimal non HDL Cholesterol levels are recommended to be <100 mg/dL Performed By: #### 2 4331-1 ####[facility] LABCLIA [id number] [address] [address] [facility] LABCLIA [id number] [place] [id number]#### 1987-11, 1798-02, 3039-09 ####[facility] LABCLIA [id number] [place] [address] [place] Cholesterol.total/Cho lesterol in HDL [Mass ratio] 3.21 {ratio} Normal <5.10 [facility] Comment on above: Order Comment: Speci men Type: BLOOD SPECIMENOrdering Facility: [facility] Address: [address] [place] [address] Performed By: #### 2 4331-1 ####[facility] LABCLIA [id number] [address] LABCLIA [id number] [place] [address]#### 1987-11, 1798-02, 3039-09 ####[facility] LABCLIA [id number] [place] [id number] [place] FASTING TIME 12 hrs Normal [facility] Comment on above: Order Comment: Speci men Type: BLOOD SPECIMENOrdering Facility: [facility] Address: [address] [place] [address] Performed By: #### 2 4331-1 ####[facility] LABCLIA [id number] [address] LABCLIA [id number] [place] [id number]#### 1987-11, 1798-02, 3039-09 ####[facility] LABCLIA [id number] [place] [id number] [place] Triglyceride [Mass/Vol] 56 mg/dL Normal <150 [facility] Comment on above: Order Comment: Speci men Type: BLOOD SPECIMENOrdering Facility: [facility] Address: [address] [place] [address] Result Comment: <150 mg/dL, Normal 150-199 mg/dL, Borderline high 200-499 mg/dL, High >499 mg/dL, Very high Performed By: #### 2 4331-1 ####[facility] LABCLIA [id number] [address] [address] [facility] LABCLIA [id number] [place] [address]#### 1988-5, 1798-8, 3040-3 ####[facility] LABCLIA [id number] [place] [id number] [place] Nuclear Ab IA Ql (S)on 03-16 PHANI SCR QUAL Negative Normal Negative [facility] Comment on above: Order Comment: Speci men Type: BLOOD SPECIMENOrdering Facility: [facility] Address: [address] [place] [address] Result Comment: The qualitative antinuclear antibody screen test performed using the following antigens: dsDNA, Chromatin, Ribosomal P, SS-A 60, SS-A 52, SS-B, Sm, SmRNP, MIDDLEWARE ENGINEER A, MIDDLEWARE ENGINEER 68, Scl-70, Samina-1, and Centromere B. Methodology: Multiplex flow immunoassay. Performed By: #### 4 7383-5 ####[facility] [id number] [place] [id number] [place] NM HEPATOBILIARY SCAN W EFon 12-01-2022 NM HEPATOBILIARY SCAN W EF HEPATOBILIARY SCAN WITH EJECTION FRACTION COMPARISON: Ultrasound [...] DARA CEDILLO Date: 2022-12-01 13:53 Normal [facility] OVA AND PARASITE EXAMINATION on 11-13-2022 Ova + Parasite Exam Final report Normal [facility] Comment on above: Result Comment: Thes e results were obtained using wet preparation(s) and trichrome stained smear. This test does not include testing for Cryptosporidium parvum, Cyclospora, or Microsporidia. Performed By: #### O VAPE #### [facility] [address] [place] [address] Dr. Timi Prater Result 1 Comment Normal [facility] Comment on above: Result Comment: No o va, cysts, or parasites seen. . One negative specimen does not rule out the possibility of a parasitic infection. Performed By: #### O VAPE #### [facility] [address] [place] [address] Dr. Timi Prater AMYLASEon 11-04-2022 Amylase [Catalytic activity/Vol] 39 U/L Normal 25-115 [facility] Comment on above: Performed By: #### O VAPE #### [facility] [address] [place] [address] Dr. Timi Prater CBC AUTO DIFFon 11-04-2022 BASO # 0.1 103/ul Normal 0.0-0.1 [facility] Comment on above: Performed By: #### C ALPOO #### [facility] [address] [place] [address] Dr. Timi Prater Basophils/100 WBC (Bld) 1.1 % Normal 0.2-2.0 [facility] Comment on above: Performed By: #### C ALPOO #### [facility] [address] [place] [address] Dr. Timi Prater EO # 0.2 103/ul Normal 0.0-0.7 [facility] Comment on above: Performed By: #### C ALPOO #### [facility] [address] [place] [address] Dr. Timi Prater Eosinophils/100 WBC (Bld) 3.5 % Normal 0.9-7.0 [facility] Comment on above: Performed By: #### C ALPOO #### [facility] [address] [place] [address] Dr. Timi Prater Erythrocyte distribution width (RBC) [Ratio] 11.5 % Normal 11.0-15.0 [facility] Comment on above: Performed By: #### C ALPOO #### [facility] [address] [place] [address] Dr. Timi Prater Hematocrit (Bld) [Volume fraction] 39.8 % Normal 36.0-48.0 [facility] Comment on above: Performed By: #### C ALPOO #### [facility] [address] [place] [address] Dr. Timi Prater Hemoglobin (Bld) [Mass/Vol] 13.7 g/dL Normal 12.0-16.0 [facility] Comment on above: Performed By: #### C ALPOO #### [facility] [address] [place] [address] Dr. Timi Prater IG # 0.01 10e3/ul Normal 0.00-0.03 [facility] Comment on above: Performed By: #### C ALPOO #### [facility] [address] [place] [address] Dr. Timi Prater IG % 0.2 % Normal 0.0-0.5 [facility] Comment on above: Performed By: #### C ALPOO #### [facility] [address] [place] [address] Dr. Timi Prater LYMPH # 2.4 103/ul Normal 1.2-3.8 [facility] Comment on above: Performed By: #### C ALPOO #### [facility] [address] [place] [address] Dr. Timi Prater Lymphocytes/100 WBC (Bld) 53.1 % Normal 20.5-60.0 [facility] Comment on above: Performed By: #### C ALPOO #### [facility] [address] [place] [address] Dr. Timi Prater MANUAL DIFF REQ NO Normal [facility] Comment on above: Performed By: #### C ALPOO #### [facility] [address] [place] [address] Dr. Timi Prater MCH (RBC) [Entitic mass] 31.6 pg Normal 26.7-34.0 [facility] Comment on above: Performed By: #### C ALPOO #### [facility] [address] [place] [address] Dr. Timi Prater MCHC (RBC) [Mass/Vol] 34.4 g/dL Normal 29.9-35.2 [facility] Comment on above: Performed By: #### C ALPOO #### [facility] [address] [place] [address] Dr. Timi Prater MCV (RBC) [Entitic vol] 91.7 fL Normal 81.0-99.0 [facility] Comment on above: Performed By: #### C ALPOO #### [facility] [address] [place] [address] Dr. Timi Prater MONO # 0.4 103/ul Normal 0.3-0.8 [facility] Comment on above: Performed By: #### C ALPOO #### [facility] [address] [place] [address] Dr. Timi Prater Monocytes/100 WBC (Bld) 8.1 % Normal 1.7-12.0 [facility] Comment on above: Performed By: #### C ALPOO #### [facility] [address] [place] [address] Dr. Timi Prater NEUT # 1.6 103/ul Normal 1.4-6.5 [facility] Comment on above: Performed By: #### C ALPOO #### [facility] [address] [place] [address] Dr. Timi Prater Neutrophils/100 WBC (Bld) 34.0 % Critically low 43.0-75.0 [facility] Comment on above: Performed By: #### C ALPOO #### [facility] [address] [place] [address] Dr. Timi Prater Platelet mean volume (Bld) [Entitic vol] 10.7 fL Normal 9.5-13.5 [facility] Comment on above: Performed By: #### C ALPOO #### [facility] [address] [place] [address] Dr. Timi Prater PLT 192 103/ul Normal 150-450 [facility] Comment on above: Performed By: #### C ALPOO #### [facility] [address] [place] [address] Dr. Timi Prater RBC 4.34 106/ul Normal 4.20-5.40 [facility] Comment on above: Performed By: #### C ALPOO #### [facility] [address] [place] [address] Dr. Timi Prater WBC 4.6 103/ul Normal 4.0-11.0 [facility] Comment on above: Performed By: #### C ALPOO #### [facility] [address] [place] [address] Dr. Timi Prater GI PANEL (PCR)on 11-04-2022 Adenovirus F 40/41 Not detected Normal NOT DETECTED [facility] Comment on above: Performed By: #### C DIFPOC #### [facility] [address] [place] [address] Dr. Timi Prater Astrovirus Not detected Normal NOT DETECTED [facility] Comment on above: Performed By: #### C DIFPOC #### [facility] [address] [place] [address] Dr. Timi Griffin Diff toxin A/B Not detected Normal NOT DETECTED [facility] Comment on above: Performed By: #### C DIFPOC #### [facility] [address] [place] [address] Dr. Timi Prater Campylobacter Not detected Normal NOT DETECTED [facility] Comment on above: Performed By: #### C DIFPOC #### [facility] [address] [place] [address] Dr. Timi Prater Cryptosporidium Not detected Normal NOT DETECTED [facility] Comment on above: Performed By: #### C DIFPOC #### [facility] [address] [place] [address] Dr. Timi Prater Cyclos. Cayetanensis Not detected Normal NOT DETECTED [facility] Comment on above: Performed By: #### C DIFPOC #### [facility] [address] [place] [address] Dr. Timi Prater E. Coli O157 Not Applicable Normal Not Applicable [facility] Comment on above: Performed By: #### C DIFPOC #### [facility] [address] [place] [address] Dr. Timi Prater E. histolytica Not detected Normal NOT DETECTED [facility] Comment on above: Performed By: #### C DIFPOC #### [facility] [address] [place] [address] Dr. Timi Prater EAEC Not detected Normal NOT DETECTED [facility] Comment on above: Performed By: #### C DIFPOC #### [facility] [address] [place] [address] Dr. Timi Prater EIEC Not detected Normal NOT DETECTED [facility] Comment on above: Performed By: #### C DIFPOC #### [facility] [address] [place] [address] Dr. Timi Prater EPEC Not detected Normal NOT DETECTED [facility] Comment on above: Performed By: #### C DIFPOC #### [facility] [address] [place] [address] Dr. Timi Prater ETEC Not detected Normal NOT DETECTED [facility] Comment on above: Performed By: #### C DIFPOC #### [facility] [address] [place] [address] Dr. Timi Prater G. Lamblia Not detected Normal NOT DETECTED [facility] Comment on above: Performed By: #### C DIFPOC #### [facility] [address] [place] [address] Dr. Timi HARPERANEL CONTROLS PASSED Normal [facility] [place] Comment on above: Performed By: #### C DIFPOC #### [facility] [address] [place] [address] Dr. Timi QUINTANILLA ANITA HEADER GI PANEL BACTERIA Normal [facility] Comment on above: Performed By: #### C DIFPOC #### [facility] [address] [place] [address] Dr. Timi QUINTANILLAHD ECOLI GI PANEL DIARRHEAGEN IC E.COLI / SHIGELLA Normal [facility] Comment on above: Performed By: #### C DIFPOC #### [facility] [address] [place] [address] Dr. Timi FAJARDO INFO SEE BELOW Normal [facility] Comment on above: Result Comment: EAEC - Enteroaggregative E. Coli EPEC- Enteropathogenic E. Coli ETEC- Enterotoxigenic E. Coli lt/st STEC- Shigella-like toxin-producing E. Coli stx1/stx2 EIEC- Shigella/Enteroinvasive E. Coli Performed By: #### C DIFPOC #### [facility] [address] [address] [address] Timi FAJARDO PARASITES GI PANEL PARASITES Normal [facility] Comment on above: Performed By: #### C DIFPOC #### [facility] [address] [place] [address] Dr. Timi FAJARDO VIRUS GI PANEL VIRUSES Normal [facility] Comment on above: Performed By: #### C DIFPOC #### [facility] [address] [place] [address] Dr. Timi Prater Norovirus GI/GII Not detected Normal NOT DETECTED [facility] Comment on above: Performed By: #### C DIFPOC #### [facility] [address] [place] [address] Dr. Timi Prater P. Shigelloides Not detected Normal NOT DETECTED [facility] Comment on above: Performed By: #### C DIFPOC #### [facility] [address] [place] [address] Dr. Timi Prater Rotavirus A Not detected Normal NOT DETECTED [facility] Comment on above: Performed By: #### C DIFPOC #### [facility] [address] [place] [address] Dr. Timi Prater Salmonella Not detected Normal NOT DETECTED [facility] Comment on above: Performed By: #### C DIFPOC #### [facility] [address] [place] [address] Dr. Timi Prater Sapovirus Not detected Normal NOT DETECTED [facility] Comment on above: Performed By: #### C DIFPOC #### [facility] [address] [place] [address] Dr. Timi Prater STEC Not detected Normal NOT DETECTED [facility] Comment on above: Performed By: #### C DIFPOC #### [facility] [address] [place] [address] Dr. Timi Prater Vibrio Not detected Normal NOT DETECTED [facility] Comment on above: Performed By: #### C DIFPOC #### [facility] [address] [place] [address] Dr. Timi Prater Vibrio Cholera Not detected Normal NOT DETECTED [facility] Comment on above: Performed By: #### C DIFPOC #### [facility] [address] [place] [address] Dr. Timi Prater Y. Enterocolitica Not detected Normal NOT DETECTED [facility] Comment on above: Performed By: #### C DIFPOC #### [facility] [address] [place] [address] Dr. Timi Prater LIPASEon 11-04-2022 Lipase [Catalytic activity/Vol] 88.0 U/L Normal 73.0-393.0 [facility] Comment on above: Performed By: #### O VAPE #### [facility] [address] [place] [address] Dr. Timi Prater OCC BLD IMMUNO SCREENon 10-21 OCCULT BLOOD Negative Normal NEGATIVE [facility] Comment on above: Performed By: #### C ALPOO #### [facility] [address] [place] [address] Dr. Timi Prater PROF 14(COMP METB)on 023 Albumin [Mass/Vol] 4.2 g/dL Normal 3.4-5.0 [facility] Comment on above: Performed By: #### C ALPOO #### [facility] [address] [place] [address] Dr. Timi Prater Albumin/Globulin [Mass ratio] 1.2 {ratio} Normal [facility] Comment on above: Performed By: #### C ALPOO #### [facility] [address] [address] [address] Timi Prater ALP [Catalytic activity/Vol] 55 U/L Normal 46-116 [facility] Comment on above: Performed By: #### C ALPOO #### [facility] [address] [address] [address] Timi Prater ALT [Catalytic activity/Vol] 14 U/L Normal 14-59 [facility] Comment on above: Performed By: #### C ALPOO #### [facility] [address] [address] [address] Timi Prater Anion gap [Moles/Vol] 11.9 mmol/L Normal [facility] Comment on above: Performed By: #### C ALPOO #### [facility] [address] [address] [address] Timi Prater AST [Catalytic activity/Vol] 13 U/L Critically low 15-37 [facility] Comment on above: Performed By: #### C ALPOO #### [facility] [address] [address] [address] Timi Prater Bilirubin [Mass/Vol] 0.6 mg/dL Normal 0.2-1.0 [facility] Comment on above: Performed By: #### C ALPOO #### [facility] [address] [address] [address] Timi Prater Calcium [Mass/Vol] 9.4 mg/dL Normal 8.5-10.1 [facility] Comment on above: Performed By: #### C ALPOO #### [facility] [address] [address] [address] Timi Prater Chloride [Moles/Vol] 104 mmol/L Normal 98-107 [facility] Comment on above: Performed By: #### C ALPOO #### [facility] [address] [address] [address] Timi Prater CO2 [Moles/Vol] 26.6 mmol/L Normal 21.0-32.0 [facility] Comment on above: Performed By: #### C ALPOO #### [facility] [address] [place] [address] Dr. Timi Prater Creatinine [Mass/Vol] 0.85 mg/dL Normal 0.55-1.02 [facility] Comment on above: Performed By: #### C ALPOO #### [facility] [address] [place] [address] Dr. Timi Prater EGFR-AF CAYMAN ISLANDER >60 Normal >=60 [facility] Comment on above: Performed By: #### C ALPOO #### [facility] [address] [address] [address] Timi Prater EGFR-NON AF CAY[place] ISLANDER >60 Normal >=60 [facility] Comment on above: Performed By: #### C ALPOO #### [facility] [address] [place] [address] Dr. Timi Prater Globulin (S) [Mass/Vol] 3.6 g/dL Normal [facility] Comment on above: Performed By: #### C ALPOO #### [facility] [address] [place] [address] Dr. Timi Prater Glucose [Mass/Vol] 100 mg/dL Normal 74-106 [facility] Comment on above: Performed By: #### C ALPOO #### [facility] [address] [place] [address] Dr. Timi Prater Potassium [Moles/Vol] 3.5 mmol/L Normal 3.5-5.1 [facility] Comment on above: Performed By: #### C ALPOO #### [facility] [address] [place] [address] Dr. Timi Prater Protein [Mass/Vol] 7.8 g/dL Normal 6.4-8.2 [facility] Comment on above: Performed By: #### C ALPOO #### [facility] [address] [place] [address] Dr. Timi Prater Sodium [Moles/Vol] 139 mmol/L Normal 136-145 [facility] Comment on above: Performed By: #### C ALPOO #### [facility] [address] [place] [address] Dr. Timi Prater Urea nitrogen [Mass/Vol] 13.0 mg/dL Normal 7.0-18.0 [facility] Comment on above: Performed By: #### C ALPOO #### [facility] [address] [address] [address] Timi Prater Urea nitrogen/Creatinine [Mass ratio] 15.3 mg/mg Normal [facility] Comment on above: Performed By: #### C ALPOO #### [facility] [id number] Timi Prater C. DIFF PCRon 11-03-2022 C. DIFFICILE PCR Negative Normal NEGATIVE [facility] Comment on above: Performed By: #### T HYRABS #### [facility] [address] [place] [address] Dr. Timi Prater Orders Onlyon 10-31-2022 Orders Only [id number] Rosa Alonzo 2000 F Date Provider Department Center 10/31/2022 [id number], HISTORICAL [facility] No family history on file Normal [facility] PANCREATIC ELASTASE FECALon 10-31-2022 Pancreatic Elastase, Fecal 253 ug Elast./g Normal >200 [facility] Comment on above: Result Comment: Tia re Pancreatic Insufficiency: <100 Moderate Pancreatic Insufficiency: 100 - 200 Normal: >200 Performed By: #### C ALPOO #### [facility] [address] [place] [id number] [address] Timi Prater US SINGLE QUAD RT [...] DARA SAVAGE Date: 2022-10-31 08:39 Normal [facility] Orders Onlyon 10-23-2022 Orders Only [id number] Rosa Alonzo 2000 F Date Provider Department Center 10/23/2022 [id number], HISTORICAL MP [facility] No family history on file Normal [facility] CBC AUTO DIFFon 10-20-2022 BASO # 0.1 103/ul Normal 0.0-0.1 [facility] Comment on above: Performed By: #### C BC #### [facility] [address] [place] [address] Dr. Timi Prater Basophils/100 WBC (Bld) 0.9 % Normal 0.2-2.0 [facility] Comment on above: Performed By: #### C BC #### [facility] [address] [place] [address] Dr. Timi Prater EO # 0.1 103/ul Normal 0.0-0.7 [facility] Comment on above: Performed By: #### C BC #### [facility] [address] [address] [address] Timi Prater Eosinophils/100 WBC (Bld) 2.6 % Normal 0.9-7.0 [facility] Comment on above: Performed By: #### C BC #### [facility] [address] [address] [address] Timi Prater Erythrocyte distribution width (RBC) [Ratio] 11.9 % Normal 11.0-15.0 [facility] Comment on above: Performed By: #### C BC #### [facility] [address] [place] [address] Dr. Timi Prater Hematocrit (Bld) [Volume fraction] 41.0 % Normal 36.0-48.0 [facility] Comment on above: Performed By: #### C BC #### [facility] [address] [place] [address] Dr. Timi Prater Hemoglobin (Bld) [Mass/Vol] 14.2 g/dL Normal 12.0-16.0 [facility] Comment on above: Performed By: #### C BC #### [facility] [address] [place] [address] Dr. Timi Prater IG # 0.02 10e3/ul Normal 0.00-0.03 [facility] Comment on above: Performed By: #### C BC #### [facility] [address] [place] [address] Dr. Timi Prater IG % 0.4 % Normal 0.0-0.5 [facility] Comment on above: Performed By: #### C BC #### [facility] [address] [place] [address] Dr. Timi Prater LYMPH # 1.7 103/ul Normal 1.2-3.8 [facility] Comment on above: Performed By: #### C BC #### [facility] [address] [place] [address] Dr. Timi Prater Lymphocytes/100 WBC (Bld) 31.2 % Normal 20.5-60.0 [facility] Comment on above: Performed By: #### C BC #### [facility] [address] [place] [address] Dr. Timi Prater MANUAL DIFF REQ NO Normal [facility] Comment on above: Performed By: #### C BC #### [facility] [address] [place] [address] Dr. Timi Prater MCH (RBC) [Entitic mass] 31.7 pg Normal 26.7-34.0 [facility] Comment on above: Performed By: #### C BC #### [facility] [address] [place] [address] Dr. Timi Prater MCHC (RBC) [Mass/Vol] 34.6 g/dL Normal 29.9-35.2 [facility] Comment on above: Performed By: #### C BC #### [facility] [address] [place] [address] Dr. Timi Prater MCV (RBC) [Entitic vol] 91.5 fL Normal 81.0-99.0 [facility] Comment on above: Performed By: #### C BC #### [facility] [address] [address] [address] Timi Prater MONO # 0.5 103/ul Normal 0.3-0.8 [facility] Comment on above: Performed By: #### C BC #### [facility] [address] [address] [address] Timi Prater Monocytes/100 WBC (Bld) 8.7 % Normal 1.7-12.0 [facility] Comment on above: Performed By: #### C BC #### [facility] [address] [place] [address] Dr. Timi Prater NEUT # 3.1 103/ul Normal 1.4-6.5 [facility] Comment on above: Performed By: #### C BC #### [facility] [address] [place] [address] Dr. Timi Prater Neutrophils/100 WBC (Bld) 56.2 % Normal 43.0-75.0 [facility] Comment on above: Performed By: #### C BC #### [facility] [address] [place] [address] Dr. Timi Prater Platelet mean volume (Bld) [Entitic vol] 10.8 fL Normal 9.5-13.5 [facility] Comment on above: Performed By: #### C BC #### [facility] [address] [place] [address] Dr. Timi Prater PLT 219 103/ul Normal 150-450 [facility] Comment on above: Performed By: #### C BC #### [facility] [address] [place] [address] Dr. Timi Prater RBC 4.48 106/ul Normal 4.20-5.40 [facility] Comment on above: Performed By: #### C BC #### [facility] [address] [place] [address] Dr. Timi Prater WBC 5.4 103/ul Normal 4.0-11.0 [facility] Comment on above: Performed By: #### C BC #### [facility] [address] [address] [address] Timi Prater Orders Onlyon 10-20-2022 Orders Only [id number] Rosa Alonzo 2000 F Date Provider Department Center 10/20/2022 Ruchi-KANDY DRIVER [facility] No family history on file Normal [facility] PROF 14(COMP METB)on 023 Albumin [Mass/Vol] 4.5 g/dL Normal 3.4-5.0 [facility] Comment on above: Performed By: #### C DIFPOC #### [facility] [address] [address] [address] Timi Prater Albumin/Globulin [Mass ratio] 1.5 {ratio} Normal [facility] Comment on above: Performed By: #### C DIFPOC #### [facility] [address] [place] [address] Dr. Timi Prater ALP [Catalytic activity/Vol] 56 U/L Normal 46-116 [facility] Comment on above: Performed By: #### C DIFPOC #### [facility] [address] [address] [address] Timi Prater ALT [Catalytic activity/Vol] 16 U/L Normal 14-59 [facility] Comment on above: Performed By: #### C DIFPOC #### [facility] [address] [place] [address] Dr. Timi Prater Anion gap [Moles/Vol] 15.5 mmol/L Normal [facility] Comment on above: Performed By: #### C DIFPOC #### [facility] [address] [address] [address] Timi Prater AST [Catalytic activity/Vol] 13 U/L Critically low 15-37 [facility] Comment on above: Performed By: #### C DIFPOC #### [facility] [address] [place] [address] Dr. Timi Prater Bilirubin [Mass/Vol] 0.6 mg/dL Normal 0.2-1.0 [facility] Comment on above: Performed By: #### C DIFPOC #### [facility] [address] [address] [address] Timi Prater Calcium [Mass/Vol] 9.3 mg/dL Normal 8.5-10.1 [facility] Comment on above: Performed By: #### C DIFPOC #### [facility] [address] [address] [address] Timi Prater Chloride [Moles/Vol] 104 mmol/L Normal 98-107 [facility] Comment on above: Performed By: #### C DIFPOC #### [facility] [address] [address] [address] Timi Prater CO2 [Moles/Vol] 25.7 mmol/L Normal 21.0-32.0 [facility] Comment on above: Performed By: #### C DIFPOC #### [facility] [address] [place] [address] Dr. Timi Prater Creatinine [Mass/Vol] 0.71 mg/dL Normal 0.55-1.02 [facility] Comment on above: Performed By: #### C DIFPOC #### [facility] [address] [address] [address] Timi Prater EGFR-AF [place] ISLANDER >60 Normal >=60 [facility] Comment on above: Performed By: #### C DIFPOC #### [facility] [address] [place] [address] Dr. Timi Prater EGFR-NON AF [place] ISLANDER >60 Normal >=60 [facility] Comment on above: Performed By: #### C DIFPOC #### [facility] [address] [place] [address] Dr. Timi Prater Globulin (S) [Mass/Vol] 3.1 g/dL Normal [facility] Comment on above: Performed By: #### C DIFPOC #### [facility] [address] [place] [address] Dr. Timi Prater Glucose [Mass/Vol] 77 mg/dL Normal 74-106 [facility] Comment on above: Performed By: #### C DIFPOC #### [facility] [address] [address] [address] Timi Prater Potassium [Moles/Vol] 4.2 mmol/L Normal 3.5-5.1 [facility] Comment on above: Performed By: #### C DIFPOC #### [facility] [address] [place] [address] Dr. Timi Prater Protein [Mass/Vol] 7.6 g/dL Normal 6.4-8.2 [facility] Comment on above: Performed By: #### C DIFPOC #### [facility] [address] [address] [address] Timi Prater Sodium [Moles/Vol] 141 mmol/L Normal 136-145 [facility] Comment on above: Performed By: #### C DIFPOC #### [facility] [address] [place] [address] Dr. Timi Prater Urea nitrogen [Mass/Vol] 15.0 mg/dL Normal 7.0-18.0 [facility] Comment on above: Performed By: #### C DIFPOC #### [facility] [address] [address] [address] Timi Prater Urea nitrogen/Creatinine [Mass ratio] 21.1 mg/mg Normal [facility] Comment on above: Performed By: #### C DIFPOC #### [facility] [address] [place] [address] Dr. Timi Prater LIPASEon 10-19-2022 Lipase [Catalytic activity/Vol] 117.0 U/L Normal 73.0-393.0 [facility] Comment on above: Performed By: #### C DIFPOC #### [facility] [address] [place] [address] Dr. Timi Prater Orders Onlyon 10-19-2022 Orders Only [id number] Rosa Alonzo 2000 F Date Provider Department Center 10/19/2022 Ruchi-KANDY DRIVER MP [facility] No family history on file Normal [facility] CT ABD/PELV W CONon 10-19-[address] [...] by: AZAEL GRIFFIN Date: 2022-10-18 11:02 Normal [facility] CORTISOL 24HR URINEon 2022 Cortisol,F,ug/24hr,U 19 ug/24 hr Normal 6-42 [facility] Comment on above: Performed By: #### C ORT24 #### [facility] [address] [place] [address] Dr. Timi Prater Cortisol,F,ug/L,U 18 ug/L Normal Undefined [facility] Comment on above: Performed By: #### C ORT24 #### [facility] [address] [address] [address] Timi Prater CLOSTRIDIUM DIFFICILE PCRon 10-06-2022 C difficile Toxin Gene RUCHI Negative Normal Negative [facility] Comment on above: Performed By: #### C ALPOO #### [facility] [address] [address] [address] Timi Prater REVERSE T3on 10-01-2022 Reverse T3, Serum 19.3 ng/dL Normal 9.2-24.1 [facility] Comment on above: Result Comment: This test was developed and its performance characteristics determined by [employer]. It has not been cleared or approved by the Food and Drug Administration. Performed By: #### O VAPE #### [facility] [address] [address] [address] Timi Prater Orders Onlyon 09-29-2022 Orders Only [id number] Rosa Alonzo 2000 F Date Provider Department Center 09/29/2022 [id number] [facility] No family history on file Normal [facility] C. DIFF PCRon 09-28-2022 C. DIFFICILE PCR Negative Normal NEGATIVE [facility] Comment on above: Performed By: #### C DIFPOC #### [facility] [id number] Timi Prater Orders Onlyon 09-28-2022 Orders Only [id number] ClintonRosa 2000 F Date Provider Department Center 09/28/2022 KANDY LÓPEZ [facility] No family history on file Normal [facility] FREE T4on 09-26-2022 Free T4 [Mass/Vol] 0.89 ng/dL Normal 0.76-1.46 [facility] Comment on above: Performed By: #### T HYRABS #### [facility] [address] [address] [address] Timi Prater CORTISOL Mely 09-25-2022 Cortisol AM 23.5 ug/dL Critically high 6.2-19.4 [facility] [place] Comment on above: Performed By: #### C DIFPOC #### [facility] [address] [place] [address] Dr. Timi Prater THYROID ANTIBODIESon 023 Thyroglobulin Antibody <1.0 Normal 0.0-0.9 [facility] Comment on above: Result Comment: Thyr oglobulin Antibody measured by [employer] Performed By: #### T HYRABS #### [facility] [address] [place] [address] Dr. Timi Prater Thyroid Peroxidase (TPO) Ab 10 IU/mL Normal 0-34 [facility] Comment on above: Performed By: #### T HYRABS #### [facility] [address] [place] [address] Dr. Timi Prater T3, TOTAL (TRIIODOTHYRONINE) on 09-23-2022 T3, TOTAL 108 ng/dL Normal 71-180 [facility] Comment on above: Performed By: #### O VAPE #### [facility] [address] [address] [address] Timi Prater FREE T3on 09-22-2022 FREE T3 2.65 pg/mlL Normal 2.18-3.98 [facility] Comment on above: Performed By: #### C DIFPOC #### [facility] [address] [place] [address] Dr. Timi Prater TSHon 09-22-2022 TSH 1.156 uIU/mL Normal 0.358-3.740 [facility] Comment on above: Performed By: #### C DIFPOC #### [facility] [address] [place] [address] Dr. Timi Prater HELICOBACTER PYLORI AG STOOL on 09-14-2022 H. pylori Stool Ag, EIA Negative Normal Negative [facility] Comment on above: Performed By: #### H PYLORI #### [facility] [address] [place] [address] Dr. Timi Prater C. DIFF PCRon 09-12-2022 C. DIFFICILE PCR Negative Normal NEGATIVE [facility] [place] Comment on above: Performed By: #### C DIFPOC #### [facility] [address] [address] [address] Timi Prater Orders Onlyon 09-12-2022 Orders Only [id number] Villeda 2000 F Date Provider Department Center 09/12/2022 [id number], HISTORICAL MP [facility] No family history on file Normal [facility] 37on 09-11-2022 37 CCBR-SYNARC for SIB O specific diet Normal [facility] Office Visiton 09-11-2022 Follow-up visit [id number] Rosa Alonzo 2000 F Date Provider Department Center 09/11/2022 KANDY LÓPEZ MP [facility] No family history on file Level of Service:43644 MD OFFICE/OUTPATIENT ESTABLISHED MOD MDM 30-39 MIN Reason for Visit and Comments: continued stomach issues [Other] Normal [facility] Orders Onlyon 09-07-2022 Orders Only [id number] Villeda 2000 F Date [facility] Department [place] 09/07/2022 KANDY LÓPEZ MP [facility] No family history on file Normal [facility] STOOL CULTUREon 09-03-2022 Campylobacter Culture Final report Normal [facility] Comment on above: Performed By: #### O VAPE #### [facility] [address] [place] [address] Dr. Timi Prater E coli Shiga Toxin EIA Negative Normal Negative [facility] Comment on above: Performed By: #### O VAPE #### [facility] [address] [address] [address] Timi Prater Result 1 Comment Normal [facility] Comment on above: Result Comment: No S almonella or Shigella recovered. Performed By: #### O VAPE #### [facility] [address] [address] [address] Timi Prater Result Comment: No C ampylobacter species isolated. Salmonella/Shigella Screen Final report Normal [facility] Comment on above: Performed By: #### O VAPE #### [facility] [address] [address] [address] Timi Prater CALPROTECTIN, FECALon 2022 Calprotectin, Fecal <16 Normal 0-120 [facility] Comment on above: Result Comment: Conc entration Interpretation Follow-Up <16 - 50 ug/g Normal None >50 -120 ug/g Borderline Re-evaluate in 4-6 weeks >120 ug/g Abnormal Repeat as clinically indicated Performed By: #### C LOUIS #### [facility] [address] [place] [address] Dr. Timi Prater Orders Onlyon 08-31-2022 Orders Only [id number] Rosa Alonzo 2000 F [facility] Provider Department Center 08/31/2022 [id number], HECTOR RAMOS [facility] No family history on file [facility] 36on 08-30-2022 36 Order faxed. [facility] 36 Pt calling stating t he Enteric Bacteria Stool Culture that you ordered her, her insurance will not cover and would cost at $1,0000 for her to have completed. [facility] told her to inform you to order just a regular stool culture instead. The order can be faxed to [phone]. [facility] C. DIFF PCRon 08-30-2022 C. DIFFICILE PCR Negative Normal NEGATIVE [facility] Comment on above: Performed By: #### O PATIE #### [facility] [address] [place] [address] Dr. Timi Prater Office Visiton 08-30-2022 Follow-up visit [id number] Rosa Alonzo 2000 [facility] Provider Department Center 08/30/2022 KANDY LÓPEZ MP [facility] No family history on file Level of Service:11940 MD OFFICE/OUTPATIENT ESTABLISHED MOD MDM 30-39 MIN Reason for Visit and Comments: Colonoscopy [235] Normal [facility] Orders Onlyon 08-30-2022 Orders Only [id number] Rosa Alonzo 2000 F Date Provider Department [place] 08/30/2022 KANDY LÓPEZ MP [facility] No family history on file Normal [facility] CLOSTRIDIUM DIFFICILE PCRon 08-26-2022 C difficile Toxin Gene RUCHI Negative Normal Negative [facility] Comment on above: Performed By: #### C LOUIS #### [facility] [address] [place] [address] Dr. Timi RODRIGUEZ URINE PROFILEon 3 Bilirubin Ql (U) Negative Normal NEGATIVE [facility] Comment on above: Performed By: #### T HYRABS #### [facility] [address] [place] [address] Dr. Timi Prater Clarity (U) CLEAR Normal CLEAR [facility] Comment on above: Performed By: #### T HYRABS #### [facility] [address] [place] [address] Dr. Timi Prater Color (U) LT. YELLOW Normal YELLOW [facility] Comment on above: Performed By: #### T HYRABS #### [facility] [address] [place] [address] Dr. Timi Prater ERUAHD A micrscopic examina tion will be performed if indicated. Normal [facility] Comment on above: Performed By: #### T HYRABS #### [facility] [address] [place] [address] Dr. Timi Prater Glucose Ql (U) Negative Normal NEGATIVE [facility] Comment on above: Performed By: #### T HYRABS #### [facility] [address] [place] [address] Dr. Timi Prater Hemoglobin Ql (U) Negative Normal NEGATIVE [facility] Comment on above: Performed By: #### T HYRABS #### [facility] [address] [place] [address] Dr. Timi Prater Ketones Ql (U) Negative Normal NEGATIVE [facility] Comment on above: Performed By: #### T HYRABS #### [facility] [address] [place] [address] Dr. Timi Prater LEUKOCYTES Negative Normal NEGATIVE [facility] Comment on above: Performed By: #### T HYRABS #### [facility] [address] [place] [address] Dr. Timi Prater Nitrite Ql (U) Negative Normal NEGATIVE [facility] Comment on above: Performed By: #### T HYRABS #### [facility] [address] [place] [address] Dr. Timi Prater pH (U) 7.0 [pH] Normal 5-9 [facility] Comment on above: Performed By: #### T HYRABS #### [facility] [address] [place] [address] Dr. Timi Prater SPEC GRAVITY 1.020 Normal 1.005-<=1.0 25 [facility] Comment on above: Performed By: #### T HYRABS #### [facility] [address] [place] [address] Dr. Timi Prater UA PROTEIN TRACE Normal NEGATIVE/ TRACE [facility] Comment on above: Performed By: #### T HYRABS #### [facility] [address] [place] [address] Dr. Timi Prater UR MICRO IND NOT INDICATED Normal [facility] Comment on above: Performed By: #### T HYRABS #### [facility] [address] [place] [address] Dr. Timi Prater Urobilinogen Qn (U) 0.2 {Trini'U}/dL Normal 0.2 - 1. 0 [facility] Comment on above: Performed By: #### T HYRABS #### [facility] [address] [place] [address] Dr. Timi Prater C. DIFF PCRon 08-22-2022 C. DIFFICILE PCR Negative Normal NEGATIVE [facility] Comment on above: Performed By: #### C DIFPOC #### [facility] [address] [place] [address] Dr. Timi Prater CARDIAC RITA ADMITon 023 CK [Catalytic activity/Vol] 56 U/L Normal 26-192 [facility] Comment on above: Performed By: #### O VAPE #### [facility] [address] [place] [address] Dr. Timi Prater CK.MB [Mass/Vol] ng/mL Normal <=3.60 [facility] [place] Comment on above: Performed By: #### O VAPE #### [facility] [address] [place] [address] Dr. Timi Prater HSTROP 9.0 pg/mL Normal 4.0-51.3 [facility] Comment on above: Result Comment: CUT- OFF POINTS HAVE BEEN ESTABLISHED BASED ON THE FOURTH UNIVERSAL DEFINITIONS OF MYOCARDIAL INFARCTION. THE UPPER REFERENCE LIMIT (URL) OF TROPONIN, DEFINED THE 99TH PERCENTILE OF cTnI DISTRIBUTION IN A REFERENCE POPULATION, HAS BEEN CONFIRMED THE DECISION THRESHOLD FOR AK DIAGNOSIS. Performed By: #### O VAPE #### [facility] [address] [place] [address] Dr. Timi Prater DARREL 15 ng/mL Normal 9-82 [facility] Comment on above: Performed By: #### O VAPE #### [facility] [address] [place] [address] Dr. Timi Prater CBC AUTO DIFFon 08-22-2022 BASO # 0.1 103/ul Normal 0.0-0.1 [facility] Comment on above: Performed By: #### C ALPOO #### [facility] [address] [place] [address] Dr. Timi Prater Basophils/100 WBC (Bld) 0.7 % Normal 0.2-2.0 [facility] Comment on above: Performed By: #### C ALPOO #### [facility] [address] [place] [address] Dr. Timi Prater EO # 0.2 103/ul Normal 0.0-0.7 [facility] Comment on above: Performed By: #### C ALPOO #### [facility] [address] [place] [address] Dr. Timi Prater Eosinophils/100 WBC (Bld) 2.7 % Normal 0.9-7.0 [facility] Comment on above: Performed By: #### C ALPOO #### [facility] [address] [place] [address] Dr. Timi Prater Erythrocyte distribution width (RBC) [Ratio] 11.9 % Normal 11.0-15.0 [facility] Comment on above: Performed By: #### C ALPOO #### [facility] [address] [address] [address] Timi Prater Hematocrit (Bld) [Volume fraction] 39.0 % Normal 36.0-48.0 [facility] Comment on above: Performed By: #### C ALPOO #### [facility] [address] [place] [address] Dr. Timi Prater Hemoglobin (Bld) [Mass/Vol] 13.3 g/dL Normal 12.0-16.0 [facility] Comment on above: Performed By: #### C ALPOO #### [facility] [address] [place] [address] Dr. Timi Prater IG # 0.02 10e3/ul Normal 0.00-0.03 [facility] Comment on above: Performed By: #### C ALPOO #### [facility] [address] [place] [address] Dr. Timi Prater IG % 0.2 % Normal 0.0-0.5 [facility] Comment on above: Performed By: #### C ALPOO #### [facility] [address] [place] [address] Dr. Timi Prater LYMPH # 3.7 103/ul Normal 1.2-3.8 [facility] Comment on above: Performed By: #### C ALPOO #### [facility] [address] [place] [address] Dr. Timi Prater Lymphocytes/100 WBC (Bld) 43.6 % Normal 20.5-60.0 [facility] Comment on above: Performed By: #### C ALPOO #### [facility] [address] [place] [address] Dr. Timi Prater MANUAL DIFF REQ NO Normal [facility] Comment on above: Performed By: #### C ALPOO #### [facility] [address] [place] [address] Dr. Timi Prater MCH (RBC) [Entitic mass] 31.7 pg Normal 26.7-34.0 [facility] Comment on above: Performed By: #### C ALPOO #### [facility] [address] [address] [address] Timi Prater MCHC (RBC) [Mass/Vol] 34.1 g/dL Normal 29.9-35.2 [facility] Comment on above: Performed By: #### C ALPOO #### [facility] [address] [place] [address] Dr. Timi Prater MCV (RBC) [Entitic vol] 93.1 fL Normal 81.0-99.0 [facility] Comment on above: Performed By: #### C ALPOO #### [facility] [address] [place] [address] Dr. Timi Prater MONO # 0.8 103/ul Normal 0.3-0.8 [facility] Comment on above: Performed By: #### C ALPOO #### [facility] [address] [place] [address] Dr. Timi Prater Monocytes/100 WBC (Bld) 8.9 % Normal 1.7-12.0 [facility] Comment on above: Performed By: #### C ALPOO #### [facility] [address] [place] [address] Dr. Timi Prater NEUT # 3.8 103/ul Normal 1.4-6.5 [facility] Comment on above: Performed By: #### C ALPOO #### [facility] [address] [place] [address] Dr. Timi Prater Neutrophils/100 WBC (Bld) 43.9 % Normal 43.0-75.0 [facility] Comment on above: Performed By: #### C ALPOO #### [facility] [address] [place] [address] Dr. Timi Prater Platelet mean volume (Bld) [Entitic vol] 11.1 fL Normal 9.5-13.5 [facility] Comment on above: Performed By: #### C ALPOO #### [facility] [address] [place] [address] Dr. Timi Prater PLT 218 103/ul Normal 150-450 [facility] Comment on above: Performed By: #### C ALPOO #### [facility] [address] [address] [address] Timi Prater RBC 4.19 106/ul Critically low 4.20-5.40 [facility] Comment on above: Performed By: #### C ALPOO #### [facility] [address] [address] [address] Timi Prater WBC 8.6 103/ul Normal 4.0-11.0 [facility] Comment on above: Performed By: #### C ALPOO #### [facility] [address] [place] [address] Dr. Timi Prater PROF 14(COMP METB)on 023 Albumin [Mass/Vol] 4.2 g/dL Normal 3.4-5.0 [facility] Comment on above: Performed By: #### O VAPE #### [facility] [address] [place] [address] Dr. Timi Prater Albumin/Globulin [Mass ratio] 1.3 {ratio} Normal [facility] Comment on above: Performed By: #### O VAPE #### [facility] [address] [place] [address] Dr. Timi Prater ALP [Catalytic activity/Vol] 50 U/L Normal 46-116 [facility] Comment on above: Performed By: #### O VAPE #### [facility] [address] [place] [address] Dr. Timi Prater ALT [Catalytic activity/Vol] 13 U/L Critically low 14-59 [facility] Comment on above: Performed By: #### O VAPE #### [facility] [address] [place] [address] Dr. Timi Prater Anion gap [Moles/Vol] 13.8 mmol/L Normal [facility] Comment on above: Performed By: #### O VAPE #### [facility] [address] [place] [address] Dr. Timi Prater AST [Catalytic activity/Vol] 14 U/L Critically low 15-37 [facility] Comment on above: Performed By: #### O VAPE #### [facility] [address] [address] [address] Timi Prater Bilirubin [Mass/Vol] 0.4 mg/dL Normal 0.2-1.0 [facility] Comment on above: Performed By: #### O VAPE #### [facility] [address] [address] [address] Timi Prater Calcium [Mass/Vol] 9.2 mg/dL Normal 8.5-10.1 [facility] Comment on above: Performed By: #### O VAPE #### [facility] [address] [address] [address] Timi Prater Chloride [Moles/Vol] 102 mmol/L Normal 98-107 [facility] Comment on above: Performed By: #### O VAPE #### [facility] [address] [place] [address] Dr. Timi rPater CO2 [Moles/Vol] 26.9 mmol/L Normal 21.0-32.0 [facility] Comment on above: Performed By: #### O VAPE #### [facility] [address] [place] [address] Dr. Timi Prater Creatinine [Mass/Vol] 0.73 mg/dL Normal 0.55-1.02 [facility] Comment on above: Performed By: #### O VAPE #### [facility] [address] [place] [address] Dr. Timi Prater EGFR-AF [place]ER >60 Normal >=60 [facility] [place] Comment on above: Performed By: #### O VAPE #### [facility] [address] [address] [address] Timi rPater EGFR-NON AF [place]ER >60 Normal >=60 [facility] Comment on above: Performed By: #### O VAPE #### [facility] [address] [place] [address] Dr. Timi Prater Globulin (S) [Mass/Vol] 3.3 g/dL Normal [facility] Comment on above: Performed By: #### O VAPE #### [facility] [address] [address] [address] Timi Prater Glucose [Mass/Vol] 107 mg/dL Critically high 74-106 [facility] Comment on above: Performed By: #### O VAPE #### [facility] [address] [address] [address] Timi Prater Potassium [Moles/Vol] 3.7 mmol/L Normal 3.5-5.1 [facility] Comment on above: Performed By: #### O VAPE #### [facility] [address] [address] [address] Timi Prater Protein [Mass/Vol] 7.5 g/dL Normal 6.4-8.2 [facility] Comment on above: Performed By: #### O VAPE #### [facility] [address] [address] [address] Timi Prater Sodium [Moles/Vol] 139 mmol/L Normal 136-145 [facility] Comment on above: Performed By: #### O VAPE #### [facility] [address] [place] [address] Dr. Timi Prater Urea nitrogen [Mass/Vol] 14.0 mg/dL Normal 7.0-18.0 [facility] Comment on above: Performed By: #### O VAPE #### [facility] [address] [place] [address] Dr. Timi Prater Urea nitrogen/Creatinine [Mass ratio] 19.2 mg/mg [facility] Comment on above: Performed By: #### O VAPE #### [facility] [address] [place] [address] Dr. Timi Prater PAP ACOG PANEL 2: 21 to 29on 08-21-2022 . . Normal [facility] Comment on above: Performed By: #### O VAPE #### [facility] [address] [place] [address] Dr. Timi Pratre Age Gdln ACOG Testing 21-29 [facility] Comment on above: Performed By: #### O VAPE #### [facility] [address] [place] [address] Dr. Timi Prater DIAGNOSIS: Comment Abnormal [facility] Comment on above: Result Comment: EPIT HELIAL CELL ABNORMALITY. ATYPICAL SQUAMOUS CELLS OF UNDETERMINED SIGNIFICANCE (ASC-US). Performed By: #### O VAPE #### [facility] [address] [place] [address] Dr. Timi Prater Electronically signed by: Comment Normal [facility] Comment on above: Result Comment: Eloise Segal MD, Pathologist Performed By: #### O VAPE #### [facility] [address] [place] [address] Dr. Timi Prater HPV Aptima Negative Normal Negative [facility] Comment on above: Result Comment: This nucleic acid amplification test detects fourteen high-risk HPV types (16,18,31,33,35,39,45,51,52,56,58,59,66,68) without differentiation. Performed By: #### O VAPE #### [facility] [address] [place] [address] Dr. Timi Prater Methodology: Comment Normal [facility] Comment on above: Result Comment: This liquid based ThinPrep(R) pap test was screened with the use of an image guided system. Performed By: #### O VAPE #### [facility] [address] [place] [address] Dr. Timi Prater Note: Comment Normal [facility] Comment on above: Result Comment: The Pap smear is a screening test designed to aid in the detection of premalignant and malignant conditions of the uterine cervix. It is not a diagnostic procedure and should not be used as the sole means of detecting cervical cancer. Both false-positive and false-negative reports do occur. . Performed By: #### O VAPE #### [facility] [address] [place] [address] Dr. Timi Prater Pathologist Provided ICD10 Comment Normal [facility] Comment on above: Result Comment: R87. [id number] Performed By: #### O VAPE #### [facility] [address] [place] [address] Dr. Timi Prater Performed by: Comment Normal [facility] Comment on above: Result Comment: Lizet Holguin, Bullet Assembly Press Operator (ASCP) Performed By: #### O VAPE #### [facility] [address] [address] [address] Timi Prater Recommendation: Comment Abnormal [facility] Comment on above: Result Comment: Sugg est follow up as clinically appropriate. Performed By: #### O VAPE #### [facility] [address] [address] [address] Timi Prater Reflex Criteria: Comment Normal [facility] Comment on above: Result Comment: See below for HPV testing results. . Performed By: #### O VAPE #### [facility] [address] [address] [address] Timi Prater Specimen adequacy: Comment Normal [facility] Comment on above: Result Comment: Sati sfactory for evaluation. Endocervical and/or squamous metaplastic cells (endocervical component) are present. Performed By: #### O VAPE #### [facility] [address] [address] [address] Timi Prater HPon 08-15-2022 HP H&P reviewed. The pa araseli was examined and there are no changes to the H&P. Normal [facility] Orders Onlyon 08-08-2022 Orders Only [id number] Rosa Alonzo 2000 F Date Provider Department Center 08/08/20221-ROSHAN [facility] No family history on file Normal [facility] 2908-02-2022 29 Addended by: CELY NELSON on: 08/04/2022 03:16 AM Modules accepted: Level of Service Normal [facility] HPon 08-02-2022 HP ----- ----- Attestation signed by Cely Nelson MD at 08/04/2022 3:16 AM I personally saw the patient on the day of the encounter, performed the murray portion(s) of the service and participated in the management and confirm the Nurse practitioner's documentation. 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 ----- [facility] Gastroenterology Follow-Up Patient Visit CHIEF [...] and normal (more content not included)... Normal [facility] Office Visiton 08-02-2022 Follow-up visit [id number] Rosa Alonzo 2000 F Date Provider Department Center 08/02/2022 Trell-CELY NELSON MP [facility] No family history on file Level of Service:19196 MD OFFICE/OUTPATIENT ESTABLISHED MOD MDM 30-39 MIN Reason for Visit and Comments: f/u c diff [Other] Normal [facility] C. DIFF PCRon 07-27-2022 C. DIFFICILE PCR Positive Critically abnormal NEGATIVE [facility] Comment on above: Performed By: #### T HYRABS #### [facility] [address] [address] [address] Timi Prater C. DIFF PCRon 07-13-2022 C. DIFFICILE PCR Negative Normal NEGATIVE [facility] [place] Comment on above: Performed By: #### C DIFPOC #### [facility] [address] [address] [address] Timi Prater US SINGLE QUAD RT [...] DARA HUMPHREY Date: 2022-05-11 17:22 Normal [facility] FECAL FAT QUANTITATIVEon Fecal Weight (Total) 233 g Normal [facility] Comment on above: Performed By: #### C ALPOO #### [facility] [address] [place] [address] Dr. Timi Prater Fecal, (Fecal Lipids)Qn 1.3 g/24 hr Normal 0.0-7.1 [facility] Comment on above: Result Comment: This value is based on a 72 hour stool collection. Performed By: #### C LOUIS #### [facility] [address] [place] [address] Dr. Timi Prater LACTOFERRIN FECAL QUANTon Lactoferrin, Fecal, Quant. <1.00 Normal 0.00-7.24 [facility] Comment on above: Result Comment: Re sults [...] (IBS). Performed By: #### C ALPOO #### [facility] [address] [place] [address] Dr. Timi Prater PANCREATIC ELASTASE FECALon 05-05-2022 Pancreatic Elastase, Fecal 369 ug Elast./g Normal >200 [facility] Comment on above: Result Comment: Tia re Pancreatic Insufficiency: <100 Moderate Pancreatic Insufficiency: 100 - 200 Normal: >200 Performed By: #### T HYRABS #### [facility] [address] [place] [address] Dr. Timi Prater C. DIFF PCRon 04-17-2022 C. DIFFICILE PCR Negative Normal NEGATIVE [facility] [place] Comment on above: Performed By: #### O VAPE #### [facility] [address] [place] [address] Dr. Timi Prater Abstracton 04-01-2022 Abstract [id number] David Henao 2000 F Date Provider Department Center 04/01/2022 REYNA RODRIGUEZ MP [facility]avi No family history on file Normal [facility] GI PANEL (PCR)on 03-17-2022 Adenovirus F 40/41 Not detected Normal NOT DETECTED [facility] Comment on above: Performed By: #### G IPANEL #### [facility] [address] [place] [address] Dr. Timi Prater Astrovirus Not detected Normal NOT DETECTED [facility] Comment on above: Performed By: #### G IPANEL #### [facility] [address] [place] [address] Dr. Timi Prater C. Diff toxin A/B Not detected Normal NOT DETECTED [facility] Comment on above: Performed By: #### G IPANEL #### [facility] [address] [place] [address] Dr. Timi Prater Campylobacter Not detected Normal NOT DETECTED [facility] Comment on above: Performed By: #### G IPANEL #### [facility] [address] [place] [address] Dr. Timi Prater Cryptosporidium Not detected Normal NOT DETECTED [facility] Comment on above: Performed By: #### G IPANEL #### [facility] [address] [place] [address] Dr. Timi Prater Cyclos. Cayetanensis Not detected Normal NOT DETECTED [facility] Comment on above: Performed By: #### G IPANEL #### [facility] [address] [place] [address] Dr. Timi Prater E. Coli O157 Not Applicable Normal Not Applicable [facility] Comment on above: Performed By: #### G IPANEL #### [facility] [address] [place] [address] Dr. Timi Prater E. histolytica Not detected Normal NOT DETECTED [facility] Comment on above: Performed By: #### G IPANEL #### [facility] [address] [place] [address] Dr. Timi Prater EAEC Not detected Normal NOT DETECTED [facility] Comment on above: Performed By: #### G IPANEL #### [facility] [address] [place] [address] Dr. Timi Prater EIEC Not detected Normal NOT DETECTED [facility] Comment on above: Performed By: #### G IPANEL #### [facility] [address] [place] [address] Dr. Timi Prater EPEC Not detected Normal NOT DETECTED [facility] Comment on above: Performed By: #### G IPANEL #### [facility] [address] [place] [address] Dr. Timi Prater ETEC Not detected Normal NOT DETECTED [facility] Comment on above: Performed By: #### G IPANEL #### [facility] [address] [place] [address] Dr. Timi Laura Lamblia Not detected Normal NOT DETECTED [facility] Comment on above: Performed By: #### G IPANEL #### [facility] [address] [place] [address] Dr. Timi WHARTON CONTROLS PASSED Normal [facility] [place] Comment on above: Performed By: #### G IPANEL #### [facility] [address] [place] [address] Dr. Timi QUINTANILLA [facility] HEADER GI PANEL BACTERIA Normal [facility] Comment on above: Performed By: #### G IPANEL #### [facility] [address] [place] [address] Dr. Timi FAJARDO ECOLI GI PANEL DIARRHEAGEN IC E.COLI / SHIGELLA Normal [facility] Comment on above: Performed By: #### G IPANEL #### [facility] [address] [place] [address] Dr. Timi FAJARDO INFO SEE BELOW Normal [facility] Comment on above: Result Comment: EAEC - Enteroaggregative E. Coli EPEC- Enteropathogenic E. Coli ETEC- Enterotoxigenic E. Coli lt/st STEC- Shigella-like toxin-producing E. Coli stx1/stx2 EIEC- Shigella/Enteroinvasive E. Coli Performed By: #### G IPANEL #### [facility] [address] [place] [address] Dr. Timi FAJARDO PARASITES GI PANEL PARASITES Normal [facility] Comment on above: Performed By: #### G IPANEL #### [facility] [address] [address] [address] Timi FAJARDO VIRUS GI PANEL VIRUSES Normal [facility] Comment on above: Performed By: #### G IPANEL #### [facility] [address] [place] [address] Dr. Timi Prater Norovirus GI/GII Not detected Normal NOT DETECTED [facility] Comment on above: Performed By: #### G IPANEL #### [facility] [address] [place] [address] Dr. Timi Prater P. Shigelloides Not detected Normal NOT DETECTED [facility] Comment on above: Performed By: #### G IPANEL #### [facility] [address] [place] [address] Dr. Timi Prater Rotavirus A Not detected Normal NOT DETECTED [facility] Comment on above: Performed By: #### G IPANEL #### [facility] [address] [place] [address] Dr. Timi Prater Salmonella Not detected Normal NOT DETECTED [facility] Comment on above: Performed By: #### G IPANEL #### [facility] [address] [place] [address] Dr. Timi Prater Sapovirus Not detected Normal NOT DETECTED [facility] Comment on above: Performed By: #### G IPANEL #### [facility] [address] [place] [address] Dr. Timi Prater STEC Not detected Normal NOT DETECTED [facility] Comment on above: Performed By: #### G IPANEL #### [facility] [address] [place] [address] Dr. Timi Prater Vibrio Not detected Normal NOT DETECTED [facility] Comment on above: Performed By: #### G IPANEL #### [facility] [address] [place] [address] Dr. Timi Prater Vibrio Cholera Not detected Normal NOT DETECTED [facility] Comment on above: Performed By: #### G IPANEL #### [facility] [address] [place] [address] Dr. Timi Prater Y. Enterocolitica Not detected Normal NOT DETECTED [facility] Comment on above: Performed By: #### G IPANEL #### [facility] [address] [place] [address] Dr. Timi Prater STOOL CULTUREon 03-01-2022 Campylobacter Culture Final report Normal [facility] Comment on above: Performed By: #### C XSTOOL #### [facility] [address] [place] [address] Dr. Timi Prater E coli Shiga Toxin EIA Negative Normal Negative [facility] Comment on above: Performed By: #### C XSTOOL #### [facility] [address] [place] [address] Dr. Timi Prater Result 1 Comment Normal [facility] Comment on above: Result Comment: No S almonella or Shigella recovered. Performed By: #### C XSTOOL #### [facility] [address] [place] [address] Dr. Timi Prater Result Comment: No C ampylobacter species isolated. Salmonella/Shigella Screen Final report Normal [facility] Comment on above: Performed By: #### C XSTOOL #### [facility] [address] [place] [address] Dr. Timi Prater CLOSTRIDIUM DIFFICILE PCRon 02-03-2022 C difficile Toxin Gene RUCHI Negative Normal Negative [facility] Comment on above: Performed By: #### C DIFPOC #### [facility] [address] [place] [address] Dr. Timi Prater C. DIFF PCRon 01-14-2022 C. DIFFICILE PCR Negative Normal NEGATIVE [facility] [place] Comment on above: Performed By: #### C ALPOO #### [facility] [address] [place] [address] Dr. Timi Prater Endoscopy Reporton Endoscopy Report MR#: [id number] [facility] Pt. Name: Rosa Henao Surgery Date: 12/29/2021 Room #: Z0 Date of : 2000 PROCEDURE NOTE ATTENDING: Zenon Huggins MD PROCEDURE: Colonoscopy with FMT. INDICATION FOR PROCEDURE: Recurrent C diff. TYPE OF ANESTHESIA: Conscious sedation, 6 mg of Versed, 150 mcg of fentanyl, and 25 mg of Benadryl. 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 QUALITY OF THE [...] Baig MD Date Trans: 12/30/2021 03:17 A/tamika [id number] cc: Colby Augustin M.D. [address] [facility] [id number] Normal The [facility] POC SARS COV2 IDon 2 SARS-CoV-2 (COVID-19) RNA RUCHI+probe Ql (Unsp spec) Negative Normal NEGATIVE The [facility] Comment on above: Result Comment: ID N [...] Accreditation. Performed By: #### 3 [id number] #### [facility] [address] [facility]. [address] POC URINE PREGNANCYon 2021 Beta HCG ( test) Ql (U) Negative Normal NEGATIVE The [facility] Comment on above: Result Comment: Perf ormed in PACU Performed By: #### 8 [id number] #### [facility] [address] [facility]. [address] General Surgery Office/Clini c Noteon 07-08-2021 [...] 06/21/2021 Family History Cancer: Father. Stroke: Mother. [facility] Comment on above: Result Comment: Elec tronically Signed By: KALEB MACKEY, Ana Sanchez\.br\Date and Time Signed: 07/08/21 16:21 EST Pathology Noteon 07-04-2021 Pathology Note [id number]#1.00CD:12 7 [facility] Operative Reporton Operative Report [id number]#1.00CD:127 [facility] Lab Reportson 06-27-2021 Lab Reports [id number]#1.00CD:12 7 [facility] Consent for Procedure/Surger yon 06-22-2021 Consent for Procedure/Surgery [id number]#1.00CD:12 7 [facility] Provider Letter FTon 06-22 Provider Letter [facility] [place] 22, 2021 Colby Augustin, [address] [place] [address] Re: ROSA HENAO Date of : 2000 Thank you for your referral of Rosa Henao who was seen on consultation on 06/21/2021 for daily nausea with abdominal cramping. An EGD is planned for further evaluation. I have enclosed my consultation note for your review. I will be happy to follow Rosa. Sincerely, Ana De La Cruz MD General Surgery [facility] Ambulatory Clinical Summaryo n 06-21-2021 Ambulatory Clinical Summary {[id number]}C D:[id number] [facility] Physician Referralon 021 Physician Referral [id number]#1.00CD:12 7 [facility] COVID Quick Testingon 2020 Result Negative [employer] Other S. pyogenes Ag Ql (Throat)on 05-05-2021 S. pyogenes Org specific cx Ql (Throat) Negative [employer] Other Ambulatory Clinical Summaryo n 01-04-2021 Ambulatory Clinical Summary {[id number]}C D:[id number] Normal [facility] General Surgery Office/Clini c Noteon 01-04-2021 General [...] Family History Cancer: Father. Stroke: Mother. Normal [facility] Comment on above: Result Comment: Elec tronically Signed By: KALEB MACKEY, Ana Lan\Date and Time Signed: 01/04/21 14:32 EDT Pathology Noteon 01-01-2021 Pathology Note [id number]#1.00CD:1 27 [facility] Outside Colonoscopyon 2020 Outside Colonoscopy [id number]#1.00CD:1 27 [facility] Lab Reportson 12-29-2020 Lab Reports [id number]#1.00CD:12 7 [facility] Consent for Procedure/Surger yon 12-08-2020 Consent for Procedure/Surgery [id number]#1.00CD:12 7 [facility] Provider Letter FTon 12-08 Provider Letter [facility] (Inserted Image. Un able to display) Colby Augustin, [facility] [place] [address] Re: ROSA HENAO Date of : 2000 [...] Ana De La Cruz MD General Surgery [facility] Ambulatory Clinical Summaryo n 12-07-2020 Ambulatory Clinical Summary {[id number]}C D:[id number] [facility] Patient Educationon 12-08-19 Patient Education Preventive [...] Yard work, such as: ? 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 ? Raking and bagging leaves. ? Washing [...] 08/11/2011 Document Revised: 06/21/2018 Document Reviewed: 05/30/2018 [employer] Patient Education ? 2020 [employer] Radiology Colonoscopy, Adult A colonoscopy is [...] have certain (more content not included)... Normal [facility] Physician Referralon [id number] 021 Physician Referral [id number]#1.00CD:12 7 Normal [facility] No Panel Informationon 12-02 [facility] Vital Signs Date Time Vital Sign Value Performing Clinician Facility 03-19-2024 13:20-0400 Body height 162.56 cm DO Ana Bolton Work Phone: [facility] 03-19-2024 13:20-0400 Body mass index (BMI) [Ratio] 19.2 kg/m2 DO Ana Bolton Work Phone: [facility] 03-19-2024 13:20-0400 Body weight 50.8 kg DO Ana Bolton Work Phone: [facility] 03-19-2024 13:20-0400 Diastolic blood pressure 60 mm[Hg] DO Ana Bolton Work Phone: [facility] 03-19-2024 13:20-0400 Heart rate 78 /min DO Ana Bolton Work Phone: [facility] 03-19-2024 13:20-0400 SaO2% (BldA) [Mass fraction] 99 % DO Ana Bolton Work Phone: [facility] 03-19-2024 13:20-0400 Systolic blood pressure 94 mm[Hg] DO Ana Bolton Work Phone: [facility] 02-26-2024 15:21-0400 Body height 162.6 cm Bola Braden MD Work Phone: [facility] 02-26-2024 15:21-0400 Body mass index (BMI) [Ratio] 19.38 kg/m2 Bola Braden MD Work Phone: [facility] 02-26-2024 15:21-0400 Body temperature 98.2 [degF] Bola Braden MD Work Phone: [facility] 02-26-2024 15:21-0400 Body weight 51.26 kg Bola Braden MD Work Phone: [facility] 02-26-2024 15:21-0400 Diastolic blood pressure 68 mm[Hg] Bola Braden MD Work Phone: [facility] 02-26-2024 15:21-0400 Heart rate 65 /min Bola Braden MD Work Phone: [facility] 02-26-2024 15:21-0400 Systolic blood pressure 117 mm[Hg] Bola Braden MD Work Phone: [facility] 12-05-2023 13:45-0400 Body height 162.6 cm Ariella Mccoy APRN.INTERNAL RECRUITER Work Phone: [facility] 12-05-2023 13:45-0400 Body mass index (BMI) [Ratio] 19.22 kg/m2 Ariella Mccoy APRN.INTERNAL RECRUITER Work Phone: [facility] 12-05-2023 13:45-0400 Body temperature 98.01 [degF] Ariella Mccoy APRN.INTERNAL RECRUITER Work Phone: [facility] 12-05-2023 13:45-0400 Body weight 50.8 kg Ariella Mccoy APRN.INTERNAL RECRUITER Work Phone: [facility] 12-05-2023 13:45-0400 Diastolic blood pressure 64 mm[Hg] Ariella Mccoy APRN.INTERNAL RECRUITER Work Phone: [facility] 12-05-2023 13:45-0400 Heart rate 90 /min Ariella Mccoy APRN.INTERNAL RECRUITER Work Phone: [facility] 12-05-2023 13:45-0400 SaO2% (BldA) [Mass fraction] 99 % Ariella Mccoy APRN.INTERNAL RECRUITER Work Phone: [facility] 12-05-2023 13:45-0400 Systolic blood pressure 106 mm[Hg] Ariella Mccoy APRN.INTERNAL RECRUITER Work Phone: [facility] 11-29-2023 11:15-0400 Body height 162.56 cm [facility] 11-29-2023 11:15-0400 Body mass index (BMI) [Ratio] 18.7 kg/m2 [facility] 11-29-2023 11:15-0400 Body weight 49.58 kg [facility] 11-29-2023 11:15-0400 Diastolic blood pressure 60 mm[Hg] [facility] 11-29-2023 11:15-0400 Heart rate 83 /min [facility] 11-29-2023 11:15-0400 Respiratory rate 18 /min [facility] 11-29-2023 11:15-0400 SaO2% (BldA) [Mass fraction] 98 % [facility] 11-29-2023 11:15-0400 Systolic blood pressure 110 mm[Hg] [facility] 11-15-2023 14:44-0400 Body height 162.6 cm Pacc 1 Other Phone: [facility] 11-15-2023 14:44-0400 Body mass index (BMI) [Ratio] 20.06 kg/m2 Pacc 1 Other Phone: [facility] 11-15-2023 14:44-0400 Body temperature 97.11 [degF] Pacc 1 Other Phone: [facility] 11-15-2023 14:44-0400 Body weight 53 kg Pacc 1 Other Phone: [facility] 11-15-2023 14:44-0400 Diastolic blood pressure 67 mm[Hg] Pacc 1 Other Phone: [facility] 11-15-2023 14:44-0400 Heart rate 75 /min Pacc 1 Other Phone: [facility] 11-15-2023 14:44-0400 Respiratory rate 18 /min Pacc 1 Other Phone: [facility] 11-15-2023 14:44-0400 SaO2% (BldA) [Mass fraction] 100 % Pacc 1 Other Phone: [facility] 11-15-2023 14:44-0400 Systolic blood pressure 110 mm[Hg] Pacc 1 Other Phone: [facility] 10-22-2023 14:44-0400 Body height 162.6 cm Sedrick Rushing MD Work Phone: [facility] 10-22-2023 14:44-0400 Body weight 52.62 kg Sderick Rushing MD Work Phone: [facility] 10-22-2023 14:44-0400 Diastolic blood pressure 62 mm[Hg] Sedrick Rushing MD Work Phone: [facility] 10-22-2023 14:44-0400 Heart rate 40 /min Sedrick Rushing MD Work Phone: [facility] 10-22-2023 14:44-0400 Systolic blood pressure 102 mm[Hg] Sedrick Rushing MD Work Phone: [facility] 09-06-2023 14:00-0500 Heart rate 68 /min Isabelle Menon MD Work Phone: [facility] 09-06-2023 14:00-0500 Respiratory rate 22 /min Isabelle Menon MD Work Phone: [facility] 09-06-2023 14:00-0500 SaO2% (BldA) [Mass fraction] 100 % Isabelle Menon MD Work Phone: [facility] 09-06-2023 13:45-0500 Diastolic blood pressure 76 mm[Hg] Isabelle Menon MD Work Phone: [facility] 09-06-2023 13:45-0500 Systolic blood pressure 101 mm[Hg] Isabelle Menon MD Work Phone: [facility] 09-06-2023 13:27-0500 Body temperature 97.2 [degF] Isabelle Menon MD Work Phone: [facility] 06-06-2023 11:42-0500 Body weight 51.26 kg Isabelle Menon MD Work Phone: [facility] 06-06-2023 11:42-0500 Diastolic blood pressure 71 mm[Hg] Isabelle Menon MD Work Phone: [facility] 06-06-2023 11:42-0500 Heart rate 87 /min Isabelle Menon MD Work Phone: [facility] 06-06-2023 11:42-0500 Systolic blood pressure 104 mm[Hg] Isabelle Menon MD Work Phone: [facility] 05-24-2023 11:30-0400 Body height 162.56 cm Analia Holliday Other [employer] Other 05-24-2023 11:30-0400 Body mass index (BMI) [Ratio] 20.48 kg/m2 Analia Holliday Other [employer] Other 05-24-2023 11:30-0400 Body weight 54.11 kg Analia Holliday Other [employer] Other 05-24-2023 11:30-0400 Diastolic blood pressure 60 mm[Hg] Analia Holliday Other [employer] Other 05-24-2023 11:30-0400 Respiratory rate 18 /min Analia Holliday Other [employer] Other 05-24-2023 11:30-0400 SaO2% (BldA) [Mass fraction] 99 % Analia Holliday Other [employer] Other 05-24-2023 11:30-0400 Systolic blood pressure 100 mm[Hg] Analia Holliday Other [employer] Other 05-22-2023 11:10-0400 Body height 162.6 cm Dara Butler Jr., DO Work Phone: [facility] 05-22-2023 11:10-0400 Body weight 52.3 kg Dara Butler Jr., DO Work Phone: [facility] 02-06-2023 10:10-0400 Body height 162.6 cm Dara Butler Jr., DO Work Phone: [facility] 02-06-2023 10:10-0400 Body weight 51.26 kg Dara Butler Jr., DO Work Phone: [facility] 02-06-2023 10:10-0400 Diastolic blood pressure 67 mm[Hg] Dara Butler Jr., DO Work Phone: [facility] 02-06-2023 10:10-0400 Heart rate 67 /min Dara Butler Jr., DO Work Phone: [facility] 02-06-2023 10:10-0400 SaO2% (BldA) [Mass fraction] 100 % Dara Butler Jr., DO Work Phone: [facility] 02-06-2023 10:10-0400 Systolic blood pressure 101 mm[Hg] Dara Butler Jr., DO Work Phone: [facility] 11-22-2022 10:00-0400 Body height 162.56 cm Silvano Reyez Other [employer] Other 11-22-2022 10:00-0400 Body mass index (BMI) [Ratio] 19.91 kg/m2 Silvano Reyez Other [employer] Other 11-22-2022 10:00-0400 Body weight 52.62 kg Silvano Reyez Other [employer] Other 11-22-2022 10:00-0400 Diastolic blood pressure 65 mm[Hg] Silvano Reyez Other [employer] Other 11-22-2022 10:00-0400 Systolic blood pressure 112 mm[Hg] Silvano Reyez Other [facility] [employer] Other 04-27-2022 14:30-0400 Body height 162.56 cm Jaya Parikh Other [facility] [employer] Other 04-27-2022 14:30-0400 Body mass index (BMI) [Ratio] 19.74 kg/m2 Jaya Parikh Other [facility] [employer] Other 04-27-2022 14:30-0400 Body weight 52.16 kg Jaya Parikh Other [facility] [employer] Other 03-15-2022 15:29-0400 Body height 162.6 cm Phani Presley MD Work Phone: [facility] 03-15-2022 15:29-0400 Body mass index (BMI) [Ratio] 19.6 kg/m2 Phani Presley MD Work Phone: [facility] 03-15-2022 15:29-0400 Body weight 51.8 kg Phani Presley MD Work Phone: [facility] 03-15-2022 15:29-0400 Diastolic blood pressure 60 mm[Hg] Phani Presley MD Work Phone: [facility] 03-15-2022 15:29-0400 Heart rate 74 /min Phani Presley MD Work Phone: [facility] 03-15-2022 15:29-0400 Respiratory rate 18 /min Phani Presley MD Work Phone: [facility] 03-15-2022 15:29-0400 SaO2% (BldA) [Mass fraction] 99 % Phani Presley MD Work Phone: [facility] 03-15-2022 15:29-0400 Systolic blood pressure 100 mm[Hg] Phani Presley MD Work Phone: [facility] 09-27-2021 12:00-0500 Body height 162.56 cm Jaya Parikh Other [employer] Other 09-27-2021 12:00-0500 Body mass index (BMI) [Ratio] 19.74 kg/m2 Jaya Parikh Other [employer] Other 09-27-2021 12:00-0500 Body weight 52.16 kg Jaya Parikh Other [employer] Other 09-27-2021 12:00-0500 Diastolic blood pressure 74 mm[Hg] Jaya Parikh Other [employer] Other 09-27-2021 12:00-0500 Systolic blood pressure 106 mm[Hg] Jaya Parikh Other [employer] Other 05-05-2021 10:30-0400 Body height 162.56 cm Arlene Negro Other [employer] Other 05-05-2021 10:30-0400 Body mass index (BMI) [Ratio] 20.6 kg/m2 Arlene Negro Other [employer] Other 05-05-2021 10:30-0400 Body temperature 99.1 [degF] Arlene Negro Other [employer] Other 05-05-2021 10:30-0400 Body weight 54.43 kg Arlene Negro Other [employer] Other 05-05-2021 10:30-0400 Respiratory rate 18 /min Arlene Negro Other [employer] Other 05-05-2021 10:30-0400 SaO2% (BldA) [Mass fraction] 97 % Arlene Negro Other [employer] Other Encounters Encounter Date Encounter Type Care Provider Facility Start: 03-19-2024 End: 03-19-2024 ambulatory DO Ana Bolton Work Phone: [facility] Work Phone: Start: 03-19-2024 End: 03-19-2024 Patient encounter procedure DO [facility] Work [facility]: Start: 03-13-2024 End: 03-13-2024 ambulatory ANALIA HOLLIDAY Facility:[facility] Start: 02-26-2024 End: 02-26-2024 Patient encounter procedure Bola Braden MD Work Phone: Gastroenterology Comment on above: Epigastric pain (Carrie mukund Dx) Start: 02-26-2024 End: 02-26-2024 ambulatory ANALIA HOLLIDAY Facility:[facility] Start: 02-11-2024 ambulatory [facility] Facility: [facility] Start: 02-11-2024 End: 02-11-2024 Subsequent hospital visit by physician Gi/Gu 1 [facility] ([facility]) Work Phone: Radiology Comment on above: Upper abdominal pain [R10.10] Start: 02-04-2024 End: 02-04-2024 ambulatory REFUGIO HARRINGTON Not Available Start: 01-30-2024 [facility] Start: 01-30-2024 End: 01-30-2024 Subsequent hospital visit by physician [facility] Work Phone: [facility] Comment on above: Upper abdominal pain [R10.10] Start: 01-29-2024 Telephone encounter Evelia Puckettalia CNM T [facility] Comment on above: Radiology [place] Start: 01-16-2024 ambulatory Isabelle Menon MD Work Phone: Gastroenterology Comment on above: EUS Start: 01-01-2024 End: 01-01-2024 ambulatory Ana Bolton [facility] Work Phone: Start: 01-01-2024 End: 01-01-2024 Departed Referred DO Ana Bolton Work Phone: [facility] Start: 12-28-2023 End: 12-28-2023 ambulatory ANALIA HOLLIDAY Facility:[facility] Start: 12-28-2023 End: 12-28-2023 Patient encounter procedure Dara Butler DO Work Phone: Gastroenterology Comment on above: Upper abdominal pain (Primary Dx); Dyspepsia and disorder of function of stomach; Dyspepsia Start: 12-27-2023 End: 12-27-2023 ambulatory ANALIA OHLLIDAY Facility:[facility] Start: 12-27-2023 Non-patient / Non-visit DO Pipe Bolton Work Phone: [facility] Work Phone: Start: 12-22-2023 ambulatory Dara Butler DO Work Phone: Gastroenterology Comment on above: Pain Start: 12-13-2023 Refill Dara Butler DO Work Phone: [facility] Comment on above: Refill Request Start: 12-05-2023 End: 12-05-2023 ambulatory ANALIA HOLLIDAY Facility:[facility] Start: 12-05-2023 End: 12-05-2023 Patient encounter procedure Ariella Mccoy APRN.INTERNAL RECRUITER Work Phone: General Surgery Comment on above: S/P gastrointestinal surgery, follow-up exam (Primary Dx); S/P laparoscopic cholecystectomy Start: 11-29-2023 End: 11-29-2023 ambulatory [facility] Work Phone: Start: 11-29-2023 End: 11-29-2023 Patient encounter procedure [facility] Shayna Work Phone: Start: 11-21-2023 End: 11-21-2023 ambulatory ANALIA M MIYA Facility:[facility] Start: 11-15-2023 End: 11-16-2023 ambulatory VIKTORIA CAUSEY Facility:[facility] Start: 11-15-2023 Encounter for other preprocedural examination [facility] Start: 11-15-2023 Non-patient / Non-visit [facility] Work Phone: Start: 11-15-2023 End: 11-15-2023 Admission to establishment [address]acc [address] Other Phone: Pre Anesthesia Start: 11-15-2023 End: 11-15-2023 Patient encounter procedure Pacc Av 1 Other Phone: Pre Anesthesia Comment on above: Pre-op examination ( Primary Dx); Palpitations; Organic anxiety syndrome Start: 11-15-2023 End: 11-15-2023 Preprocedural examination done Pacc Av 1 Other Phone: [facility] Work Phone: Start: 11-15-2023 Telephone encounter Viktoria HOODC Work Phone: Pre Anesthesia Comment on above: Pre-Op Exam Start: 11-07-2023 End: 11-07-2023 ambulatory ANALIA HOLLIDAY Facility:[facility] Start: 11-05-2023 Telephone encounter Sedrick justice MD Work Phone: Cardiology Comment on above: Patient Question (PV Cs and Frequent ED visits. ) Start: 10-30-2023 Telephone encounter Sedrick justice MD Work Phone: Cardiology Comment on above: Palpitations; ED pt update Start: 10-23-2023 Telephone encounter Seema cooley MD Work Phone: General Surgery Comment on above: Cardiac Clearance Start: 10-22-2023 End: 10-22-2023 ambulatory ANALIA HOLLIDAY Facility:[facility] Start: 10-22-2023 End: 10-22-2023 Patient encounter procedure Sedrick Rushing MD Work Phone: Cardiology Comment on above: Palpitations (Primar y Dx); Other supraventricular tachycardia (HCC) Start: 10-19-2023 End: 10-19-2023 ambulatory SEEMA DAVIS Facility:[facility] Start: 09-11-2023 Telephone encounter Isabelle chiu MD Work Phone: Gastroenterology Comment on above: Patient Update Start: 09-06-2023 Telephone encounter Isabelle chiu MD Work Phone: [facility] Provider Adult Start: 09-06-2023 ambulatory ANALIA HOLLIDAY Facili ty:[facility] Start: 09-06-2023 End: 09-06-2023 Subsequent hospital visit by physician Isabelle Menon MD Work Phone: [facility] Endoscopy - ENDO Comment on above: Chronic recurrent pa ncreatitis (HCC) [K86.1] Start: 07-05-2023 End: 07-05-2023 ambulatory ISABELLE MENON Facility:[facility] Start: 06-25-2023 Telephone encounter Large Hops Procedure Rm 15 Radiology Comment on above: Scans Start: 06-11-2023 ambulatory Isabelle Menon MD Work Phone: Gastroenterology Comment on above: EUS Start: 06-06-2023 End: 06-06-2023 ambulatory ISABELLE MENON Facility:[facility] Start: 06-06-2023 End: 06-06-2023 Patient encounter procedure Isabelle Menon MD Work Phone: Gastroenterology Comment on above: RUQ pain (Primary Dx ); History of pancreatitis; Nausea; Diarrhea, unspecified type; History of Clostridium difficile infection Start: 06-01-2023 End: 06-01-2023 ambulatory Analia Holliday Other [employer] Other Start: 06-01-2023 Telephone encounter Analia [facility] Start: 05-30-2023 End: 05-30-2023 Patient encounter procedure DNP Analia Miya Work Phone: [facility] Start: 05-30-2023 End: 05-30-2023 ambulatory DNP Analia Miya Work Phone: [facility] Work Phone: Start: 05-24-2023 End: 05-24-2023 ambulatory Analia Miya Other [employer] Other Start: 05-24-2023 Encounter for genera l adult medical examination without abnormal findings Analia Holliday [facility] Start: 05-24-2023 Initial preventive medicine new pt age 18-39yrs Analia Holliday [facility] Start: 05-22-2023 End: 05-22-2023 [facility] Start: 05-22-2023 End: 05-22-2023 Patient encounter procedure Dara Butler DO Work Phone: Gastgroenterology Comment on above: Chronic pancreatitis , unspecified pancreatitis type (HCC) (Primary Dx); Generalized abdominal pain; Irritable bowel syndrome with diarrhea; History of Clostridioides difficile colitis Start: 05-16-2023 End: 05-16-2023 ambulatory Ordering Provider Other [employer] Other Start: 05-16-2023 Telephone encounter Ordering Nichole sanchez [facility] Start: 05-03-2023 Telephone encounter Dara joshi DO Work Phone: Gastroenterology Comment on above: Results Start: 05-01-2023 End: 05-01-2023 ambulatory COLBY AUGUSTIN Facility:[facility] Start: 04-27-2023 End: 04-27-2023 ambulatory COLBY AUGUSTIN Facility:[facility] Start: 04-25-2023 ambulatory Jose Luis David Facility:[facility] Start: 04-24-2023 End: 04-24-2023 ambulatory COLBY AUGUSTIN Facility:[facility] Start: 04-14-2023 Telephone encounter Dara joshi DO Work Phone: Gastroenterology Comment on above: Results Start: 04-13-2023 ambulatory DARA BUTLER Facility: [facility] Start: 04-12-2023 Telephone encounter Salma Moise ([place]) [facility] Comment on above: APPT REMINDER (APPT REMINDER CALL, LEFT MESSAGE REGARDING DIRECTIONS TO OFFICE AND # IN NEED TO CANCEL) Start: 03-29-2023 End: 03-29-2023 ambulatory COLBY Moise [place] Facility:[facility] Start: 03-27-2023 End: 03-27-2023 ambulatory Silvano Dereje Other [employer] Other Start: 03-27-2023 Telephone encounter Silvano Scrossyner [facility] Start: 03-23-2023 End: 03-23-2023 ambulatory Silvano Scovanner Other [employer] Other Start: 03-23-2023 Telephone encounter Silvano Scrossyner [facility] Comment on above: Results Start: 03-22-2023 End: 03-22-2023 ambulatory Silvano Scovanner Other [employer] Other Start: 03-22-2023 Telephone encounter Nae poole MD Work Phone: Rheumatology Comment on above: Results Start: 03-21-2023 Telephone encounter Dara joshi DO Work Phone: Gastroenterology Comment on above: Results Start: 03-20-2023 End: 03-20-2023 ambulatory Silvano Reyez Other [employer] Other Start: 03-20-2023 Telephone encounter Silvano Castillo [facility] Start: 03-16-2023 End: 03-16-2023 ambulatory [facility] Start: 03-15-2023 ambulatory Dara Butler DO Work Phone: Gastgroenterology Comment on above: Pancreas Start: 02-28-2023 ambulatory DARA BUTLER Facility: [facility] Start: 02-06-2023 End: 02-06-2023 Patient encounter procedure Dara Butler DO Work Phone: Gastgroenterology Comment on above: Chronic pancreatitis , unspecified pancreatitis type (HCC) (Primary Dx); Generalized abdominal pain; Intestinal malabsorption, unspecified type Start: 01-09-2023 ambulatory Jose Luis Hernandez Facility:[facility] Start: 12-21-2022 ambulatory Nae Ibarra MD Work Phone: Rheumatology Comment on above: update Start: 12-01-2022 End: 12-02-[address] DOCTOR GENTILE Facility:[facility] Start: 11-22-2022 End: 11-22-2022 ambulatory Silvano Reyez Other [employer] Other Start: 11-22-2022 Office outpatient ne w 30 minutes Silvano Reyez [facility] Start: 11-08-2022 End: 11-08-2022 ambulatory Jaya Parikh Other [employer] Other Start: 11-08-2022 Telephone encounter Jaya Parikh [facility] Start: 11-04-2022 End: 11-04-2022 ambulatory [...] . Facility:[facility] Start: 09-20-2022 End: 09-21-2022 [facility] Start: 09-12-2022 End: 09-13-[address] DOCTOR GENTILE Facility:[facility] Start: 09-11-2022 End: 09-11-2022 ambulatory [facility] Start: 08-30-2022 End: 08-31-[address] DOCTOR GENTILE Facility:[facility] Start: 08-30-2022 End: 08-30-2022 [facility] Start: 08-24-2022 End: 08-24-[address] KYREE NOGUERA . Facility:[facility] Start: 08-22-2022 End: 08-23-[address] KYREE NOGUERA . Facility:[facility] Start: 08-22-2022 End: 08-22-[address] KYREE NOGUERA . Facility:[facility] Start: 08-21-2022 End: 08-22-[address] KYREE NOGUERA . Facility:[facility] Start: 08-15-2022 End: 08-16-2022 [facility] Start: 08-14-2022 End: 08-14-[address] REFUGIO HARRINGTON . Facility:[facility] Start: 08-02-2022 End: 08-02-2022 ambulatory CELY MCID [facility] Start: 07-28-2022 End: 07-28-2022 ambulatory Jaya Parikh Other [employer] Other Start: 07-28-2022 Telephone encounter Jaya POTTER [...] 04-27-2022 End: 04-27-2022 ambulatory Jaya Parikh Other [employer] Other Start: 04-27-2022 Patient encounter procedure Jaya Parikh [facility] Start: 04-17-2022 End: 04-18-[address] KYREE NOGUERA . Facility:[facility] Start: 03-17-2022 End: 03-17-[address] DOCTOR GENTILE Facility:[facility] Start: 03-15-2022 ambulatory PHANI PRESLEY Facility:[facility] Start: 03-15-2022 End: 03-15-2022 Office outpatient [facility] 60 minutes Phani Presley MD Work Phone: [facility]astro[facility] Comment on above: Diarrhea, unspecifie d type (Primary Dx) Start: 02-25-2022 End: 02-25-2022 ambulatory COLBY AUGUSTIN Facility:[facility] Start: 02-01-2022 End: 02-02-[address] DOCTOR GENTILE Facility:[facility] Start: 01-19-2022 End: 01-19-2022 ambulatory Jaya Brerogerremington Other [employer] Other Start: 01-19-2022 Telephone encounter Jaya POTTER [facility] Start: 01-14-2022 End: 01-14-2022 ambulatory COLBY HOY Facility: Start: 12-27-2021 ambulatory REFERRED SELF Facility: [facility] Start: 10-27-2021 End: 10-27-2021 ambulatory Jaya Brerogerremington Other [employer] Other Start: 10-27-2021 Telephone encounter Jaya POTTER [facility] Start: 10-17-2021 End: 10-17-2021 ambulatory Jaya Brerogery Other [employer] Other Start: 10-17-2021 Telephone encounter Jaya POTTER [facility] Start: 10-07-2021 ambulatory PHANI SAKINA Facility:[facility] Start: 10-06-2021 End: 10-06-2021 ambulatory Jaya Brerogerremington Other [employer] Other Start: 10-06-2021 Telephone encounter Jaya POTTER [facility] Start: 09-30-2021 End: 09-30-2021 ambulatory Jaya Brerogerremington Other [employer] Other Start: 09-30-2021 Telephone encounter Jaya POTTER [facility] Start: 09-27-2021 End: 09-27-2021 ambulatory Jaya Brerogery Other [employer] Other Start: 09-27-2021 [facility] visit new patient Jaya Ditty [facility] Start: 05-05-2021 Office outpatient vi sit 15 minutes Arlene Negro [facility] Start: 12-02-2020 End: 12-02-2020 Subsequent hospital visit by physician [facility] Scan Comment on above: Family history of is chemic heart disease and other diseases of the circulatory system [Z82.49] Procedures Date Procedure Procedure Detail Performing Clinician Start: 02-11-2024 XR UPPER GI SINGLE CONTRAST Dara Butler DO Work Phone: Start: 01-30-2024 Gastric emptying imaging study Dara Butler DO Work Phone: Start: 09-06-2023 Esophagoscp rig transoral hypopharynx crv satish Menon MD Work Phone: Start: 12-02-2020 Ct angiography head w/contrast/noncontrast Rickie Naqvi DO Work Phone: Start: 12-02-2020 Ct angiography neck w/contrast/noncontrast Rickie Naqvi DO Work Phone: History of cholecystectomy S/P laparoscopic cholecystectomy 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 Rheumatology Comment on above: for fatigue fu OV. Start: 06-13-2024 End: 06-13-2024 Patient encounter procedure 06/13/2024 1:20 PM EST Office Visit Gastroenterology [address] [place] [address] Dara Butler Jr., DO [address] [place] [address] JN -SOONER APPT FOR FOLLOW UP Gastroenterology Comment on above: JN -SOONER APPT FOR FOLLOW UP Start: 05-07-2024 End: 05-07-2024 Patient encounter procedure 05/07/2024 11:45 AM EDT Office Visit Gastroenterology [address] [place] [address] [place] [address] [place] [address] F/U OV Gastroenterology Comment on above: F/U OV Start: 03-26-2024 End: 03-26-2024 Patient encounter procedure 03/26/2024 11:00 AM EDT Office Visit Pain Management [address] [place] [address] Zenon Uriostegui MD [address] [place] [address] Dr Magnolia claudio referral Pain Management Comment on above: Dr Magnolia claudio referral Start: 03-23-2024 Influenza vaccination [facility] Start: 03-18-2024 End: 03-18-2024 Patient encounter procedure 03/18/2024 1:00 PM EDT Office Visit Gastroenterology [address] [address] Bola Braden MD [address] [place] [address] Pancreatitis second opinion Gastroenterology Comment on above: Pancreatitis second opinion Start: 03-14-2024 End: 03-14-2024 Patient encounter procedure 03/14/2024 10:00 AM EDT Office Visit Gastroenterology [address] [place] [address] Dara Butler Jr., DO [address] [place] [address] follow upo Gastroenterology Comment on above: follow upo Start: 02-11-2024 End: 02-11-2024 Patient encounter procedure 02/11/2024 9:30 AM EDT Appointment Radiology [address] [place] [address] : XR UPPER GI SINGLE CONTRAST Radiology Comment on above: : XR UPPER GI SINGLE CONTRAST Start: 02-01-2024 End: 02-01-2024 Patient encounter procedure 02/01/2024 3:00 PM EDT Office Visit Gastroenterology [address] [place] [address] Dara Butler Jr., DO [address] [place] [id number] JN -SOONER APPT FOR FOLLOW UP Gastroenterology Comment on above: JN -SOONER APPT FOR FOLLOW UP Start: 01-30-2024 End: 01-30-2024 Patient encounter procedure 01/30/2024 8:30 AM EDT Appointment [facility] [address] [place] [address] Gastric Emptying Study Weight 115 / Patient not Diabetic / Order in EPIC // DX: Upper abdominal pain [R10.10] [facility] Comment on above: Gastric Emptying Study Weight 115 / Nancy ent not Diabetic / Order in EPIC // DX: Upper abdominal pain [R10.10] Start: 01-09-2024 End: 01-09-2024 Patient encounter procedure 01/09/2024 8:30 AM EDT Appointment [facility] [address] [place] [address] Weight 115 / Patient not Diabetic / Order in EPIC // DX: Upper abdominal pain [R10.10] [facility] Comment on above: Weight 115 / Patient not Diabetic / Orde r in EPIC // DX: Upper abdominal pain [R10.10] Start: 12-28-2023 End: 12-28-2023 Patient encounter procedure 12/28/2023 3:00 PM EDT Office Visit Gastroenterology [address] [place] [address] Dara Butler Jr., DO [address] [place] [id number] abdominal pain- add per JN Gastroenterology Comment on above: abdominal pain- add per JN Start: 12-27-2023 End: 12-27-2023 ambulatory 12/27/2023 10:00 AM EDT Results Only [facility] [address] [place] [address] [place] [address] [facility] Start: 12-26-2023 End: 03-26-2024 Amylase [Enzymatic activity/volume] in Serum or Plasma AMYLASE Lab Routine Generalized abdominal pain History of acute pancreatitis Expected: 12/26/2023, Expires: 03/26/2024 [facility] Comment on above: Expected: 12/26/2023, Expires: Start: 12-26-2023 End: 03-26-2024 C reactive protein [Mass/volume] in Serum or Plasma C-REACTIVE PROTEIN Lab Routine Generalized abdominal pain History of acute pancreatitis Expected: 12/26/2023, Expires: 03/26/2024 [facility] Comment on above: Expected: 12/26/2023, Expires: Start: 12-26-2023 End: 03-26-2024 CBC W Auto Differential panel - Blood COMPLETE BLOOD COUNT AND DIFFERENTIAL Lab Routine Generalized abdominal pain History of acute pancreatitis Expected: 12/26/2023, Expires: 03/26/2024 [facility] Comment on above: Expected: 12/26/2023, Expires: Start: 12-26-2023 End: 03-26-2024 Comprehensive metabolic 2000 panel - Serum or Plasma COMPREHENSIVE METABOLIC PANEL Lab Routine Generalized abdominal pain History of acute pancreatitis Expected: 12/26/2023, Expires: 03/26/2024 [facility] Work Phone: Comment on above: Expected: 12/26/2023, Expires: Start: 12-26-2023 End: 03-26-2024 Erythrocyte sedimentation rate SEDIMENTATION RATE, WESTERGREN Lab Routine Generalized abdominal pain History of acute pancreatitis Expected: 12/26/2023, Expires: 03/26/2024 [facility] Comment on above: Expected: 12/26/2023, Expires: Start: 12-26-2023 End: 03-26-2024 Lipase [Enzymatic activity/volume] in Serum or Plasma LIPASE Lab Routine Generalized abdominal pain History of acute pancreatitis Expected: 12/26/2023, Expires: 03/26/2024 [facility] Comment on above: Expected: 12/26/2023, Expires: Start: 12-10-2023 End: 12-10-2023 Patient encounter procedure 12/10/2023 12:20 PM EDT Office Visit Rheumatology [address] [facility] [place] [address] Nae Ibarra MD [address] [facility] [place], [place] [id number] for fatigue fu OV. Rheumatology Comment on above: for fatigue fu OV. Start: 11-21-2023 End: 11-21-2023 Admission to same day surgery center 11/21/2023 3:15 PM EDT - 11/21/2023 5:45 PM EDT Surgery [facility] Operating Room [address] [place] [address] [place] [address] [id number] LAPAROSCOPIC CHOLECYSTECTOMY [facility] Room Comment on above: LAPAROSCOPIC CHOLECYSTECTOMY Start: 11-21-2023 End: 11-21-2023 Laparoscopy surg cholecystectomy LAPAROSCOPIC CHOLECYSTECTOMY Cholecystitis 11/21/2023 3:15 PM EDT [facility] Start: 11-21-2023 Subsequent hospital visit by physician 11/21/2023 3:15 PM EDT Hospital Encounter [facility] Operating Room [address] [place], [place] [id number] [place] [address] [id number] Cholecystitis [K81.9] [facility] Comment on above: Cholecystitis [K81.9] Start: 07-23-2023 Behavioral Health Screening Behavioral Health Screening [facility] Start: 07-23-2023 Depression Assessment Depression Assessment [facility] Start: 03-23-2023 Covid-19 Vaccine () Covid-19 Vaccine () [facility] Start: 03-23-2023 Influenza vaccination [facility] Start: 02-06-2023 End: 04-08-2023 Amylase [Enzymatic activity/volume] in Serum or Plasma AMYLASE BLD Lab Routine Generalized abdominal pain Chronic pancreatitis, unspecified pancreatitis type (HCC) Intestinal malabsorption, unspecified type Expected: 02/06/2023, Expires: 04/08/2023 [facility] Work Phone: Comment on above: Expected: 02/06/2023, Expires: 3 Start: 02-06-2023 End: 04-08-2023 CELIAC SCREEN WITH REFLEX CELIAC SCREEN WITH REFLEX Lab Routine Generalized abdominal pain Chronic pancreatitis, unspecified pancreatitis type (HCC) Intestinal malabsorption, unspecified type Expected: 02/06/2023, Expires: 04/08/2023 [facility] Work Phone: Comment on above: Expected: 02/06/2023, Expires: 3 Start: 02-06-2023 End: 04-08-2023 Comprehensive metabolic 2000 panel - Serum or Plasma COMP METABOLIC PANEL Lab Routine Generalized abdominal pain Chronic pancreatitis, unspecified pancreatitis type (HCC) Intestinal malabsorption, unspecified type Expected: 02/06/2023, Expires: 04/08/2023 [facility] Work Phone: Comment on above: Expected: 02/06/2023, Expires: 3 Start: 02-06-2023 End: 04-08-2023 IGG SUBCLASS 1,2,3,4 IGG SUBCLASS 1,2,3,4 Lab Routine Generalized abdominal pain Chronic pancreatitis, unspecified pancreatitis type (HCC) Intestinal malabsorption, unspecified type Expected: 02/06/2023, Expires: 04/08/2023 [facility] Work Phone: Comment on above: Expected: 02/06/2023, Expires: 3 Start: 02-06-2023 End: 04-08-2023 Lipase [Enzymatic activity/volume] in Serum or Plasma LIPASE BLD Lab Routine Generalized abdominal pain Chronic pancreatitis, unspecified pancreatitis type (HCC) Intestinal malabsorption, unspecified type Expected: 02/06/2023, Expires: 04/08/2023 [facility] Work Phone: Comment on above: Expected: 02/06/2023, Expires: 3 Start: 02-06-2023 End: 04-08-2023 Lipid 1996 panel - Serum or Plasma LIPID PANEL BASIC Lab Routine Generalized abdominal pain Chronic pancreatitis, unspecified pancreatitis type (HCC) Intestinal malabsorption, unspecified type Expected: 02/06/2023, Expires: 04/08/2023 [facility] Work Phone: Comment on above: Expected: 02/06/2023, Expires: 3 Start: 02-06-2023 End: 04-08-2023 Nuclear Ab [Presence] in Serum by Immunoassay PHANI BLOOD Lab Routine Generalized abdominal pain Chronic pancreatitis, unspecified pancreatitis type (HCC) Intestinal malabsorption, unspecified type Expected: 02/06/2023, Expires: 04/08/2023 [facility] Work Phone: Comment on above: Expected: 02/06/2023, Expires: 3 Start: 07-23-2022 DEPRESSION ASSESSMENT DEPRESSION ASSESSMENT [facility] [facility] Start: 07-20-2022 End: 07-20-2022 Patient encounter procedure 07/20/2022 Office Visit Gastroenterology Phani Presley MD [address] [place] [address] General and Gastrointestinal Surgery [facility] Start: 03-23-2022 Influenza vaccination INFLUENZA VACCINE (#1) [facility] Start: 03-15-2022 End: 03-15-2023 C DIFFICILE BY PCR (CLOSTRIDIUM DIFFICILE TOXIN) C DIFFICILE BY PCR (CLOSTRIDIUM DIFFICILE TOXIN) Microbiology Routine Diarrhea, unspecified type Expected: 03/15/2022, Expires: 03/15/2023 [facility] Comment on above: Expected: 03/15/2022, Expires: 3 Start: 03-15-2022 End: 03-15-2023 MOLECULAR ENTERIC PANEL, STOOL MOLECULAR ENTERIC PANEL, STOOL Fluids Routine Diarrhea, unspecified type Expected: 03/15/2022, Expires: 03/15/2023 [facility] Comment on above: Expected: 03/15/2022, Expires: 08/24/202 3 Start: 09-06-2021 COVID-19 VACCINE (3 - Booster for Pfizer series) COVID-19 VACCINE (3 - Booster for Pfizer series) [facility] Start: 06-01-2021 COVID-19 VACCINE (3 - Booster for Pfizer series) COVID-19 VACCINE (3 - Booster for Pfizer series) [facility] Start: 06-01-2021 COVID-19 VACCINE (3 - Pfizer series) COVID-19 VACCINE (3 - Pfizer series) [facility] Start: 02-07-2021 Urine microalbumin profile DTaP,Tdap,Td Vaccine (7 - Td or Tdap) [facility] Start: 11-18-2019 PAP TESTING PAP TESTING [facility] Start: 11-18-2019 Screening for malignant neoplasm of cervix [facility] Start: 2017 Third diphtheria, tetanus and acellular pertussis (DTaP) vaccination TDAP (ADULT) [facility] Start: 2017 Urine microalbumin profile [facility] Start: 2016 Depression Screening Depression Screening [facility] Start: 2016 HIV SCREENING HIV SCREENING [facility] Start: 2016 HIV screening HIV Screening [facility] Start: 2016 Tetanus vaccination TETANUS [facility] Start: 2014 Meningococcal B Vaccine: Consider Based On Risk (1 of 2 - Patient Seeks Protection) Meningococcal B Vaccine: Consider Based On Risk (1 of 2 - Patient Seeks Protection) [facility] Start: 2014 MENINGOCOCCAL B: Consider based on risk (1 of 2 - Patient Seeks Protection) MENINGOCOCCAL B: Consider based on risk (1 of 2 - Patient Seeks Protection) [facility] Start: 2014 Screening for Chlamydia trachomatis CHLAMYDIA SCREEN [facility] Start: 2013 HIV screening HIV SCREENING DISCUSSION [facility] Start: 2012 PEDS TO ADULT TRANSITION ANNUAL ASSESSMENT PEDS TO ADULT TRANSITION ANNUAL ASSESSMENT [facility] Start: 08-15-2011 HPV Vaccine (3 - 2-dose series) HPV Vaccine (3 - 2-dose series) [facility] Start: 2010 PEDS TO ADULT TRANSITION INITIAL DISCUSSION PEDS TO ADULT TRANSITION INITIAL DISCUSSION [facility] Start: 2009 Vaccination for human papillomavirus HPV VACCINE ADOL (1 - 2-dose series) [facility] Start: 2008 MENINGOCOCCAL B: Consider based on risk (1 of 2 - Risk Bexsero 2-dose series) MENINGOCOCCAL B: Consider based on risk (1 of 2 - Risk Bexsero 2-dose series) [facility] Start: 11-18-2007 HPV VACCINE (1 - 2-dose series) HPV VACCINE (1 - 2-dose series) [facility] Start: 1998 GONORRHEA SCREEN GONORRHEA SCREEN [facility] Start: 1998 HEPATITIS B (1 of 3 - 3-dose series) HEPATITIS B (1 of 3 - 3-dose series) [facility] Start: 1998 Hepatitis B Vaccine (1 of 3 - 3-dose series) Hepatitis B Vaccine (1 of 3 - 3-dose series) [facility] Start: 1998 Hepatitis C antibody, confirmatory test HEPATITIS C VIRUS SCREENING [facility] End: 07-12-2024 Ct angio abd&plvis cntrst mtrl w/wo cntrst img CTA ABD/PEL W IVCON Radiology Routine Generalized abdominal pain RUQ pain Chronic recurrent pancreatitis (HCC) Diarrhea, unspecified type 1 Occurrences starting 06/13/2023 until 07/12/2024 [facility] Work Phone: Comment on above: 1 Occurrences starting 06/13/2023 until 07/12/2024 End: 10-21-2024 Echocardiography ECHO Cardiology Routine Other supraventricular tachycardia (HCC) Palpitations 1 Occurrences starting 10/22/2023 until 10/21/2024 [facility] Work Phone: Comment on above: 1 Occurrences starting 10/22/2023 until 10/21/2024 End: 04-14-2024 Mri abdomen w/o & w/contrast material MRI ABDOMEN WO/W IVCON Radiology Routine Chronic recurrent pancreatitis (HCC) 1 Occurrences starting 03/16/2023 until 04/14/2024 [facility] Work Phone: Comment on above: 1 Occurrences starting 03/16/2023 until 04/14/2024 End: 01-26-2025 NM Stomach Views for gastric emptying solid phase W radionuclide PO NM GASTRIC EMPTYING SOLID Radiology Routine Upper abdominal pain Dyspepsia and disorder of function of stomach Dyspepsia 1 Occurrences starting 12/28/2023 until 01/26/2025 [facility] Comment on above: 1 Occurrences starting 12/28/2023 until 01/26/2025 OUTSIDE VENDOR CARDI AC OUTPATIENT EXTENDED RHYTHM RECORDING (WITHOUT TELEMETRY) OUTSIDE VENDOR CARDIAC OUTPATIENT EXTENDED RHYTHM RECORDING (WITHOUT TELEMETRY) Holter Routine Other supraventricular tachycardia (HCC) Palpitations Ordered: 10/22/2023 [facility] Work Phone: Comment on above: Ordered: 10/22/2023 End: 01-26-2025 RF Gastrointestinal tract upper Views W barium contrast PO XR UPPER GI SINGLE CONTRAST Radiology Routine Upper abdominal pain Dyspepsia and disorder of function of stomach 1 Occurrences starting 12/28/2023 until 01/26/2025 [facility] Work Phone: Comment on above: 1 Occurrences starting 12/28/2023 until 01/26/2025 [facility] [place] Payers Date Payer Category Payer Self-pay 2022 Unknown [id number] 2020 Unknown [id number] 2019 Unknown [id number]. [id number] 1998 Unknown [id number] 2.16.8 40.1.401112.3.579.2.647 1998 Unknown [id number] 2.16. 840.1.437311.3.579.2.594 1998 Unknown [id number] 2.16. 840.1.511752.3.579.2.594 1998 Unknown [id number] 2.16.84 0.1.048698.3.579.2.593 1998 Unknown [id number] 2.16.84 0.1.679232.3.579.2.593 1998 Unknown [id number] 2.16.84 0.1.677789.3.579.2.593 1998 Unknown [id number] 2.16.84 0.1.324378.3.579.2.593 1998 Unknown [id number] 2.16.84 0.1.863453.3.579.2.593 1998 Unknown [id number] 2.16.84 0.1.394821.3.579.2.593 1998 Unknown [id number] 2.16.84 0.1.827235.3.579.2.593 1998 Unknown [id number] 2.16.84 0.1.576791.3.579.2.593 1998 Unknown [id number] 2.16.84 0.1.598251.3.579.2.593 1998 Unknown [id number] 2.16.84 0.1.665189.3.579.2.593 1998 Unknown [id number] 2.16.84 0.1.182631.3.579.2.593 1998 Unknown [id number] 2.16.84 0.1.087561.3.579.2.593 1998 Unknown [id number] 2.16.84 0.1.034399.3.579.2.593 1998 Unknown [id number] 2.16.84 0.1.500186.3.579.2.593 1998 Unknown [id number] 2.16.84 0.1.691423.3.579.2.593 1998 Unknown [id number] 2.16.84 0.1.783943.3.579.2.593 1998 Unknown [id number] 2.16.84 0.1.377841.3.579.2.593 1998 Unknown [id number] 2.16.84 0.1.531032.3.579.2.593 1998 Unknown [id number] 2.16.84 0.1.244718.3.579.2.593 1998 Unknown [id number] 2.16.84 0.1.356966.3.579.2.593 1998 Unknown [id number] 2.16.84 0.1.294577.3.579.2.593 1998 Unknown [id number] 2.16.84 0.1.899443.3.579.2.593 1998 Unknown [id number] 2.16.84 0.1.929632.3.579.2.593 1998 Unknown [id number] 2.16.84 0.1.102211.3.579.2.593 1998 Unknown [id number] 2.16.84 0.1.043105.3.579.2.593 1998 Unknown [id number] 2.16.84 0.1.740607.3.579.2.593 1998 Unknown [id number] 2.16.84 0.1.838991.3.579.2.593 1998 Unknown [id number] 2.16.84 0.1.000008.3.579.2.593 1998 Unknown [id number] 2.16.84 0.1.559326.3.579.2.593 1998 Unknown [id number] 2.16.84 0.1.527645.3.579.2.593 1998 Unknown [id number] 2.16.84 0.1.345990.3.579.2.593 1998 Unknown [id number] 2.16.84 0.1.303437.3.579.2.593 1998 Unknown [id number] 2.16.84 0.1.738531.3.579.2.1259 Unknown [id number] 2.16.8 40.1.075599.3.579.2.531 Unknown [id number] 2.16.8 40.1.082386.3.579.2.531 Social History Date Type Detail Facility Unknown if ever smoked [facility] [employer] Other Start: 12-08-2022 End: 02-06-2023 Sex Assigned At [facility] Start: 03-15-2022 End: 03-19-2024 Tobacco smoking status NHIS Never smoked tobacco [facility] Start: 03-15-2022 End: 11-15-2023 Tobacco use and exposure Smokeless tobacco non-user [facility] Start: 03-15-2022 Alcohol intake Current drinker of alcohol (finding) [facility] Start: 03-15-2022 History SDOH Alcohol Comment social [facility] Start: 1998 Sex Assigned At Not on file [facility] Start: 12-08-2022 Tobacco smoking status NHIS Ex-smoker [facility] History of tobacco use Current smoker [facility] Start: 1998 Sex Assigned At Female [facility] Start: 12-08-2022 End: 02-06-2023 History of Social function [facility] Adult Depression Screening Assessment 1 [facility] Start: 12-02-2020 Gender identity Identifies as female gender (finding) [facility] Start: 12-02-2020 Sexual orientation Heterosexual (finding) [facility] Start: 06-06-2023 End: 02-26-2024 Alcohol intake Ex-drinker (finding) [facility] Start: 11-15-2023 Alcohol Comment socially- rare [facility] Clinical Notes 12-02-2020 to 02-26-2024 Bola Braden MD - 02/26/2024 3:30 PM Bola Rocha MD - 02/26/2024 3:21 PM Eva Ferraro MA - 02/26/2024 3:18 PM Eva Ferraro MA - 02/26/2024 3:18 PM EDTPatient Instructions Note Date & Type Note Facility 02-26-2024 History of Present illness Narrative New Patient/Consult REASON FOR VISIT Rosa Alonzo is a 23 year old female who is scheduled for a consult at the request of Dara Butler DO. CHIEF COMPLAINT Pancreatitis, 2nd opinion My final recommendations will be communicated back to the requesting physician by the way of the shared medical record, fax, or via US Mail. HISTORY OF PRESENT ILLNESS At age 14 had acute pancreatitis. Hospitalized. No records available for review. The cause is unclear. For the past 2 years postprandial right sided back pain and poorly formed stools. She also has epigastric pain. This pain is unrelated to meals. She is losing weight in past 2 years, 15 pounds. She has decreased appetite. No relief of the back pain with removal of gallbladder. EUS did not reveal changes of chronic pancreatitis. She has a history of c diff and s/p fecal transplant x 2. Fecal elastase negative. No response to pancreatic enzymes. No relief with amitriptyline. Bentyl helps. Last 10 Encounter Wt Readings: Date: Wt: 02/26/2024 51.3 kg (113 lb) 12/05/2023 50.8 kg (112 lb) 11/15/2023 53 kg (116 lb 13.5 oz) 10/22/2023 52.6 kg (116 lb) 10/19/2023 52.9 kg (116 lb 8.2 oz) 06/06/2023 51.3 kg (113 lb) 05/22/2023 52.3 kg (115 lb 4.8 oz) 02/06/2023 51.3 kg (113 lb) 12/08/2022 51.4 kg (113 lb 6.4 oz) 12/09/2021 53.1 kg (117 lb) PERTINENT PRIOR DIAGNOSTIC TESTING Luminal: UPPER EUS - 09/06/2023 Findings: ENDOSONOGRAPHIC FINDING: : There was no [...] mildly to moderately stenotic, as visualized endosonographically. Extra Luminal: MRI ABDOMEN WO/W IVCON - 04/13/2023 COMPARISON: CT abdomen pelvis 10/18/2022 RESULT: Motion degraded examination. Pancreas: Pancreas is [...] ascites. Osseous structures: No aggressive osseous lesions. Labs: Latest Reference Range & Units 12/27/23 09:42 Alkaline Phosphatase 34 - 123 U/L 53 ALT 7 - 38 U/L 9 AST 13 - 35 U/L 14 Anion Gap 8 - 15 mmol/L 6 (L) Amylase 30 - 104 U/L 44 Lipase 16 - 61 U/L 22 MEDICATIONS Current Outpatient Medications Medication Sig Dispense Refill pantoprazole DR (PROTONIX) 40 mg tablet TAKE 1 TABLET BY MOUTH EVERY DAY 90 tablet 1 amitriptyline (ELAVIL) 25 mg tablet Take 1 tablet by mouth daily at bedtime. 30 tablet 2 escitalopram oxalate (LEXAPRO) 10 mg tablet Take 5 mg by mouth once daily. ondansetron (ZOFRAN) 4 mg tablet Take 4 mg by mouth as needed. No current facility-administered medications for this visit. ALLERGIES ALLERGIES Allergen Reactions Metronidazole Mental Status Change, Diarrhea, GI Upset, Hives, Other: See Comments, Rash, Shortness of Breath, Unknown, Vomiting PAST MEDICAL HISTORY PAST MEDICAL HISTORY No date: Pancreatitis PAST SURGICAL HISTORY PAST SURGICAL HISTORY No date: COLONOSCOPY No date: EGD No date: ENDOMETRIAL WASHINGS Comment: laproscopicaly 11/21/2023: LAPAROSCOPIC CHOLECYSTECTOMY SOCIAL HISTORY Social History Tobacco Use Smoking status: Never Smokeless tobacco: Never Vaping Use Vaping Use: Never used Substance Use Topics Alcohol use: Not Currently Comment: socially- rare Drug use: Not Currently Types: Marijuana Comment: rare edible FAMILY HISTORY FAMILY HISTORY Problem Relation Age of Onset Stroke Mother Heart Father Prostate Cancer Father Colon Cancer No Family History NO pancreatitis. GASTROINTESTINAL REVIEW OF SYSTEMS Answers submitted by the patient for this visit: Review of Systems Gastroenterology (Submitted on 02/25/2024) Fever: No Chills: No Night Sweats: Yes Unitentional Weight Change: Yes A Cough: No Difficulty Breathing: Yes Chest Pain: No Belly pain: Yes A feeling of fullness or have belly pain after eating: Yes Food getting stuck in your throat or chest after eating: No Nausea - that is, a feeling like you could vomit: Yes Regurgitation - that is, food or liquid coming back up into your throat or mouth without vomiting, or feel burning behind your breast bone: No Loss of appetite: Yes Blood in your stools: No Black tarry stools: No Loose or watery stools: Yes The feeling like you need to empty your bowels right away - that is, feel as if you would have an accident: Yes Bowel incontinence - that is, have an accident because you cannot make it to the bathroom in time: No Problems with straining while having bowel movements , hard or lumpy stools, or feel unfinished (that you have not passed all your stool): No Pain in rectum or anus during bowel movements: No Problems with jaundice - that is, yellow discoloration of your skin or eyes, now or in the past: No Problems with having to flush the toilet more than two times due to oily stool, or see stool floating with oil: Yes PHYSICAL EXAMINATION BP 117/68 Pulse 65 Temp 36.8 C (98.2 F) (Temporal) Ht 162.6 cm (5' 4.02 ) Wt 51.3 kg (113 lb) LMP 01/30/2024 (Approximate) BMI 19.38 kg/m General appearance: cooperative, in no acute distress Neurological: alert and oriented x3 Eyes: conjunctivae/corneas clear Oropharynx: Lips, tongue and oral mucosa normal Lungs: Lungs clear to auscultation. No wheezing or ronchi. Heart: S1, S2 Normal Abdomen: Abdomen soft, non-tender, Bowel sounds normal, No masses, No organomegaly, and no tenderness on palpation or percussion. Extremities: Extremities normal. No deformities, edema, or skin discoloration Skin:no rashes, lesions, or jaundice Assessment IMPRESSION AND PLAN 23 year old woman with chronic mostly post prandial epigastric and back pain. Her main concern is whether her pain is pancreatic in origin. She did have an unexplained attack of acute pancreatitis at age 13, but no documented attacks since then. Furthermore, both EUS and CT imaging reveal no structural changes of chronic pancreatitis. She has not had an elevated lipase documented in recent years even during episodes of pain. An enzyme trial failed to relieve her pain. Fecal elastase has been in normal range. All considered, I do not believe there is convincing evidence of support a pancreatic origin for the pain. She is satisfied based on our discussion that the pancreas is an unlikely origin for her epigastric / back pain, and will continue to follow with her current team of physicians. She is currently being evaluated for MALS and seeing a general surgeon to discuss potential arcuate ligament release. I spent a total of 30 minutes on the date of the service which included preparing to see the patient, [id number] patient care, completing clinical documentation, obtaining and/or reviewing separately obtained history, performing a medically appropriate examination, counseling and educating the patient/family/caregiver, and independently interpreting results (not separately reported). Bola Braden MD February 26, 2024 error documented in this encounter [facility] 02-26-2024 Note HNO ID: [id number] Author: BOLA BRADEN MD Service: ? Author Type: Physician Type: Progress Notes Filed: 02/26/2024 18:47 Note Text: New Patient/Consult REASON FOR VISIT Rosa Alonzo is a 23 year old female who is scheduled for a consult at the request of Dara Butler DO. CHIEF COMPLAINT Pancreatitis, 2nd opinion My final recommendations will be communicated back to the requesting physician by the way of the shared medical record, fax, or via US Mail. HISTORY OF PRESENT ILLNESS At age 14 had acute pancreatitis. Hospitalized. No records available for review. The cause is unclear. For the past 2 years postprandial right sided back pain and poorly formed stools. She also has epigastric pain. This pain is unrelated to meals. She is losing weight in past 2 years, 15 pounds. She has decreased appetite. No relief of the back pain with removal of gallbladder. EUS did not reveal changes of chronic pancreatitis. She has a history of c diff and s/p fecal transplant x 2. Fecal elastase negative. No response to pancreatic enzymes. No relief with amitriptyline. Bentyl helps. Last 10 Encounter Wt Readings: Date: Wt: 02/26/2024 51.3 kg (113 lb) 12/05/2023 50.8 kg (112 lb) 11/15/2023 53 kg (116 lb 13.5 oz) 10/22/2023 52.6 kg (116 lb) 10/19/2023 52.9 kg (116 lb 8.2 oz) 06/06/2023 51.3 kg (113 lb) 05/22/2023 52.3 kg (115 lb 4.8 oz) 02/06/2023 51.3 kg (113 lb) 12/08/2022 51.4 kg (113 lb 6.4 oz) 12/09/2021 53.1 kg (117 lb) PERTINENT PRIOR DIAGNOSTIC TESTING Luminal: UPPER EUS - 09/06/2023 Findings: ENDOSONOGRAPHIC FINDING: : There was no [...] mildly to moderately stenotic, as visualized endosonographically. Extra Luminal: MRI ABDOMEN WO/W IVCON - 04/13/2023 COMPARISON: CT abdomen pelvis 10/18/2022 RESULT: Motion degraded examination. Pancreas: Pancreas is [...] ascites. Osseous structures: No aggressive osseous lesions. Labs: Latest Reference Range AND Units 12/27/23 09:42 Alkaline Phosphatase 34 - 123 U/L 53 ALT 7 - 38 U/L 9 AST 13 - 35 U/L 14 Anion Gap 8 - 15 mmol/L 6 (L) Amylase 30 - 104 U/L 44 Lipase 16 - 61 U/L 22 MEDICATIONS Current Outpatient Medications Medication Sig Dispense Refill pantoprazole DR (PROTONIX) 40 mg tablet TAKE 1 TABLET BY MOUTH EVERY DAY 90 tablet 1 amitriptyline (ELAVIL) 25 mg tablet Take 1 tablet by mouth daily at bedtime. 30 tablet 2 escitalopram oxalate (LEXAPRO) 10 mg tablet Take 5 mg by mouth once daily. ondansetron (ZOFRAN) 4 mg tablet Take 4 mg by mouth as needed. No current facility-administered medications for this visit. ALLERGIES ALLERGIES Allergen Reactions Metronidazole Mental Status Change, Diarrhea, GI Upset, Hives, Other: See Comments, Rash, Shortness of Breath, Unknown, Vomiting PAST MEDICAL HISTORY PAST MEDICAL HISTORY No date: Pancreatitis PAST SURGICAL HISTORY PAST SURGICAL HISTORY No date: COLONOSCOPY No date: EGD No date: ENDOMETRIAL WASHINGS Comment: laproscopicaly 11/21/2023: LAPAROSCOPIC CHOLECYSTECTOMY SOCIAL HISTORY Social History Tobacco Use Smoking status: Never Smokeless tobacco: Never Vaping Use Vaping Use: Never used Substance Use Topics Alcohol use: Not Currently Comment: socially- rare Drug use: Not Currently Types: Marijuana Comment: rare edible FAMILY HISTORY FAMILY HISTORY Problem Relation Age of Onset Stroke Mother Heart Father Prostate Cancer Father Colon Cancer No Family History NO pancreatitis. GASTROINTESTINAL REVIEW OF SYSTEMS Answers submitted by the patient for this visit: Review of Systems Gastroenterology (Submi (more content not included)... [facility] 02-26-2024 Note HNO ID: [id number] Author: BOLA BRADEN MD Service: ? Author Type: Physician Type: Progress Notes Filed: 02/26/2024 18:47 Note Text: error [facility] 02-26-2024 Nurse Note What is the reason for your visit today? Consult Who is your referring physician? None Are you having poor oral intake? NO Have you had unintentional weight loss of 15 lbs/7 Kg in the last 3-6 months? NO Bowels: diarrhea or regular Wound: None Temperature: No Drains: No [facility] 02-26-2024 Nurse Note What is the reason for your visit today? Consult Who is your referring physician? None Are you having poor oral intake? NO Have you had unintentional weight loss of 15 lbs/7 Kg in the last 3-6 months? NO Bowels: diarrhea or regular Wound: None Temperature: No Drains: No documented in this encounter [facility] 02-11-2024 History of Present illness Narrative Radiology Service Progress Note PATIENT NAME: Rosa Alonzo DATE OF SERVICE: February 11, 2024 TIME: 9:44 AM PATIENT IDENTITY VERIFICATION COMPLETED USING TWO (2) IDENTIFIERS: Name and Date of confirmed by patient verbally. FALL SCREENING: Has the patient had 2 falls in the last year or 1 fall with injury or currently using an Ambulatory Assistive Device (Walker, Cane, Wheelchair, Crutches, etc.)? Inpatient: Screened on floor PATIENT GENDER DATA: Female. status: : No status: NO. PATIENT RELEVANT IMPLANT DATA REVIEWED: Not Applicable PATIENT PRESENTS WITH AN IMPLANTABLE OR ATTACHED METROLOGY ENGINEER: No RADIOLOGY DEPARTMENT: General X-ray: Exam(s) Completed: GI/ Procedure(s): Upper GI with barium contrast PERIPHERAL IV DATA: Not applicable SIGNED BY: RT Tabitha(R) February 11, 2024 9:44 AM documented in this encounter [facility] 02-11-2024 Note HNO ID: [id number] Author: WAYNE TEMPLETON RT(R) Service: ? Author Type: Technologist Type: Progress Notes Filed: 02/11/2024 09:45 Note Text: Radiology Service Progress Note PATIENT NAME: Rosa Alonzo DATE OF SERVICE: February 11, 2024 TIME: 9:44 AM PATIENT IDENTITY VERIFICATION COMPLETED USING TWO (2) IDENTIFIERS: Name and Date of confirmed by patient verbally. FALL SCREENING: Has the patient had 2 falls in the last year or 1 fall with injury or currently using an Ambulatory Assistive Device (Walker, Cane, Wheelchair, Crutches, etc.)? Inpatient: Screened on floor PATIENT GENDER DATA: Female. status: : No status: NO. PATIENT RELEVANT IMPLANT DATA REVIEWED: Not Applicable PATIENT PRESENTS WITH AN IMPLANTABLE OR ATTACHED METROLOGY ENGINEER: No RADIOLOGY DEPARTMENT: General X-ray: Exam(s) Completed: GI/ Procedure(s): Upper GI with barium contrast PERIPHERAL IV DATA: Not applicable SIGNED BY: RT Tabitha(Laura) February 11, 2024 9:44 AM [facility] 01-30-2024 History of Present illness Narrative RADIOLOGY SERVICE PROGRESS NOTE SERVICE DATE: 01/30/2024 SERVICE TIME: 10:38 AM PATIENT IDENTITY VERIFICATION COMPLETED USING TWO (2) STANDARD IDENTIFIERS: Name and Date of confirmed by patient verbally FALL SCREENING: Has the patient had 2 falls in the last year or 1 fall with injury or currently using an Ambulatory Assistive Device (Walker, Cane, Wheelchair, Crutches, etc.)? No PATIENT GENDER DATA: .female : No ALLERGIES: Reviewed and unchanged MEDICATIONS REVIEWED: Yes PATIENT RELEVANT IMPLANT DATA REVIEWED: Not Applicable PATIENT PRESENTS WITH AN IMPLANTABLE OR ATTACHED METROLOGY ENGINEER: No CREATININE: Creatinine Date Value Ref Range Status 12/27/2023 0.68 0.58 - 0.96 mg/dL Final 11/15/2023 0.75 0.58 - 0.96 mg/dL Final 03/16/2023 0.71 0.58 - 0.96 mg/dL Final Estimated Glomerular Filtration Rate Date Value Ref Range Status 12/27/2023 124 >=60 mL/min/1.73m Final Comment: Estimated Glomerular Filtration Rate (eGFR) [...] not accurately reflect actual GFR. P.O.C.T. RESULTS: N/A January 30, [address] PERFORMED: No IV SITE: AR only - not applicable, oral or physician administered agents given to patient POST EXAM PIV STATUS: Not applicable PROCEDURE TYPE: NM GET: 1.1 mCi Tc99m SULFUR COLLOID was administered orally via 4 oz eggbeaters and 4 ounces of water orally. ADMINISTRATION TIME: 826 PATIENT DISCHARGED TO: Ambulatory patient, left AR department area. A Diagnostic radioactive procedure has taken place, with no further precautions necessary other than routine body substance precautions. More information regarding radiation safety can be found using this link: [email or web address] [email or web address]-%20Diagnostic%20Nuclear%20 Medicine%20Procedures.pdf SIGNATURE: MARTÍN De La Rosa PATIENT NAME: Rosa Alonzo DATE: January 30, 2024 TIME: 10:38 AM PAGER/CONTACT #: documented in this encounter [facility] 01-30-2024 Note HNO ID: [id number] Author: EVELIA HARP CNMT Service: ? Author Type: Director [place] [employer] Type: Progress Notes Filed: 01/30/2024 10:40 Note Text: RADIOLOGY SERVICE PROGRESS NOTE SERVICE DATE: 01/30/2024 SERVICE TIME: 10:38 AM PATIENT IDENTITY VERIFICATION COMPLETED USING TWO (2) STANDARD IDENTIFIERS: Name and Date of confirmed by patient verbally FALL SCREENING: Has the patient had 2 falls in the last year or 1 fall with injury or currently using an Ambulatory Assistive Device (Walker, Cane, Wheelchair, Crutches, etc.)? No PATIENT GENDER DATA: .female : No ALLERGIES: Reviewed and unchanged MEDICATIONS REVIEWED: Yes PATIENT RELEVANT IMPLANT DATA REVIEWED: Not Applicable PATIENT PRESENTS WITH AN IMPLANTABLE OR ATTACHED METROLOGY ENGINEER: No CREATININE: Creatinine Date Value Ref Range Status 12/27/2023 0.68 0.58 - 0.96 mg/dL Final 11/15/2023 0.75 0.58 - 0.96 mg/dL Final 03/16/2023 0.71 0.58 - 0.96 mg/dL Final Estimated Glomerular Filtration Rate Date Value Ref Range Status 12/27/2023 124 >=60 mL/min/1.73m? Final Comment: Estimated Glomerular Filtration [...] not accurately reflect actual GFR. P.O.C.T. RESULTS: N/A January 30, [address] PERFORMED: No IV SITE: AR only - not applicable, oral or physician administered agents given to patient POST EXAM PIV STATUS: Not applicable PROCEDURE TYPE: NM GET: 1.1 mCi Tc99m SULFUR COLLOID was administered orally via 4 oz eggbeaters and 4 ounces of water orally. ADMINISTRATION TIME: 826 PATIENT DISCHARGED TO: Ambulatory patient, left AR department area. A Diagnostic radioactive procedure has taken place, with no further precautions necessary other than routine body substance precautions. More information regarding radiation safety can be found using this link: [email or web address]%20Prote ction%20-% 20Diagnostic%20Nuclear%20Medicine%2 0Procedures.pdf SIGNATURE: MARTÍN De La Rosa PATIENT NAME: Rosa Alonzo DATE: January 30, 2024 TIME: 10:38 AM PAGER/CONTACT #: [facility] 01-29-2024 Telephone encounter Note SPOKE WITH PT TO CONFIRM APT TO AND EXPLAIN THE EXAM AND ANY PREP. [facility] 01-29-2024 Miscellaneous Notes SPOKE WITH PT TO CONFIRM APT TO AND EXPLAIN THE EXAM AND ANY PREP. documented in this encounter [facility] 12-28-2023 Instructions Dara Butler Jr., DO - 12/28/2023 3:15 PM EDT Check gastric emptying study Check Upper GI series Start amitriptyline Start pantoprazole Stop Carafate May use Levbid as needed documented in this encounter [facility] 12-28-2023 History of Present illness Narrative [...] an issue, start amitriptyline. Consider referral to [facility] if symptoms fail to improve. Although the [...] last colonoscopy was 8 months ago in [place]. Start amitriptyline Keep appt with Dr. Menon [...] divisum. 12/01/22 HIDA scan was done at [facility]: Normal study EF 69% US: 10/31/22: [...] with 350 mL of normal saline. 08/02/22 [facility] Gastroenterology Rosa Alonzo is a [...] Lymph 1.00 - 4.00 k/uL 2.43 2.06 [place]% % 8.4 8.1 Abs [place] <0.87 k/uL 0.47 0.42 [place]% % 3.4 [...] R10.13 - NM GASTRIC EMPTYING SOLID Dara Btuler Jr. documented in this encounter [facility] 12-28-2023 Note HNO ID: [id number] Author: DARA BUTLER JR, DO Service: ? [...] an issue, start amitriptyline. Consider referral to [facility] if symptoms fail to improve. Although the [...] last colonoscopy was 8 months ago in [place]. Start amitriptyline Keep appt with Dr. Menon [...] divisum. 12/01/22 HIDA scan was done at [facility]: Normal study EF 69% US: 10/31/22: (care everywhere) Liver normal Gallbaldder appears normal with no stones or sludge. No gallbladder wall thickening CBD 1.[address] abd/pel w/IV cont: 10/18/22: (scanned): Liver: no enlargement, atrophy, or focal lesion Biliary: no dilation or calcification Pancreas: haziness and p (more content not included)... [facility] 12-26-2023 Telephone encounter Note Please see [...] and advise. Thank you Analia Estevez RN [facility] 12-26-2023 Miscellaneous Notes Please see attached [...] Analia Estevez RN documented in this encounter [facility] 12-24-2023 Telephone encounter Note Maintain Levbid. Start Carafate. Ok to move up appt to December. Dara Butler Jr., DO Please call pt to set up an office visit in December, may use hold spot if needed. Thank you. Analia Estevez RN [facility] 12-24-[address] Butler, would you prefer to see pt sooner in December? She was started on Levbid recently with no real improvement and requesting sooner office visit? Wondering if she might benefit from seeing functional medicine? Please review and advise. Analia Estevez RN [facility] 12-05-2023 History of Present illness Narrative [...] KAREN Mccoy APRN.CNP documented in this encounter [facility] 12-05-2023 Note HNO ID: [id number] Author: ARIELLA MCCOY APRN.CNP Service: ? Author [...] may arise. Follow up: KAREN Mccoy APRN.CNP [facility] 12-05-2023 Nurse Note What is the [...] clean & dry Temperature: No Drains: No [facility] 12-05-2023 Nurse Note What is the [...] No Drains: No documented in this encounter [facility] 11-21-2023 Note HNO ID: [id number] Author: ?, ?, ? Service: ? Author Type: ? Type: Plan of Care Filed: 11/26/2023 17:37 Note Text: PHARMACY BEDSIDE DELIVERY SERVICE Patient Name: Rosa Alonzo The marked outpatient medications were filled and picked up at [facility] Medication List START taking these medications [...] prescribed them or your Primary Care Provider. Miguel Flores (Environmental Compliance Inspector) PAGER: [phone] November 26, 2023 5:37 PM [facility] 11-21-2023 Note HNO ID: [id number] Author: MARVIN MARQUIS APRN.CRNA Service: Anesthesiology Author Type: Nurse Medical Office Scheduler Type: Anesthesia Procedure Notes Filed: 11/21/2023 14:23 Note Text: ANESTHESIOLOGY PROCEDURE NOTE Airway General Information Procedure Start Time/Medication Administration: 11/21/2023 2:14 PM Procedure End Time: 11/21/2023 2:22 PM Patient location during procedure: OR Timeout Performed Pre-procedure: timeout performed Patient identity confirmed: arm band, care paper steamer and patient Staffing Anesthesiologist: Moshe Krishnamurthy DO REMELT FURNACE EXPEDITER: Marvin Marquis APRN.REMELT FURNACE EXPEDITER Performed by: ROMAIN Indications and Patient Condition [...] lips and teeth intact. SIGNATURE: Marvin Marquis APRN.REMELT FURNACE EXPEDITER PATIENT NAME: Rosa Alonzo DATE: November 21, 2023 TIME: 2:22 PM CSN: [id number] [facility] 11-16-2023 Telephone encounter Note Images from the original note were not included. Sedrick Rushing MD You; Wilfredo Avila OCCA; Chasew Card Nurse 9 hours [...] surgery. Hope this helps! Augustus Rushing MD [facility] 11-16-2023 Miscellaneous Notes Images from the original note were not included. Sedrick Rushing MD You; Wilfredo Avila OCCA; Karan Card Nurse 9 hours ago (10:29 PM) [...] as scheduled? Event monitor preliminary reading in [email or web address] View Cardiac Outpatient Recording/Telemetry [ID [id number]] ECHO completed in [email or web address]. Of note she also has been to the ED 2 times for her palpitations since your visit, with c/o of palpations intermittently throughout the day. she denies associated SOB or dizziness. She reports her symptoms have not changed. Thank you, Viktoria Causey PA-C [facility] documented in this encounter [facility] 11-15-2023 Telephone encounter Note Plan: - [...] a cardiac standpoint. Per his last OV [facility] 11-15-2023 Telephone encounter Note Images from the original note were not included. Greetings Dr. Rushing , Your patient was seen for preanesthesia consult 11/15/2023. Rosa Alonzo is scheduled for LAPAROSCOPIC CHOLECYSTECTOMY with Dr. Seema Davis on 11/21/2023. Do you feel they are medically optimized and ok to proceed as scheduled? Event monitor preliminary reading in [email or web address] View Cardiac Outpatient Recording/Telemetry [ID [id number]] ECHO completed in [email or web address]. Of note she also has been to the ED 2 times for her palpitations since your visit, with c/o of palpations intermittently throughout the day. she denies associated SOB or dizziness. She reports her symptoms have not changed. Thank you, Viktoria Causey PA-C [facility]ation [facility] 11-15-2023 History and physical note HISTORY [...] SOB. Pulse today 75, regular rhythm today [id number]- 0 Ejection Fraction - Result: 63 % [...] Covid Immunization Dates Overdue - Covid-19 Vaccine ( season) Overdue since 03/23/2023 04/06/2021 Imm Admin: COVID-19 original vaccine, age 12+ yr, monovalent ([employer] - PURPLE TOP) 03/16/2021 Imm Admin: COVID-19 original vaccine, age 12+ yr, monovalent ([employer] - PURPLE [facility]) REVIEW OF SYSTEMS: positive findings are BOLD PAIN ASSESSMENT: Pain Pain Level: 5 Pain Location: Back-Lower Description: Aching Duration Units: Months Frequency: Continuous Intervention/Comfort measure: Relaxation, Heat General: No weight loss, malaise or fevers. Neuro: No history of TIA's, stroke, PACKAGING SALES REPRESENTATIVE tumor, impaired sensorium, hemiplegia, paraplegia or quadraplegia. No neurological symptoms or problems. Respiratory: No history of current cough or dyspnea, or pneumonia in the past 6 weeks. No history of respiratory/pulmonary symptoms or problems. Cardiovascular: Palpitations (SVT) Negative for Recent AK, CAD, CHF, HTN Negative for chest pain, [...] 402 QTC Calculation (Bazett) 424 Calculated P [place] 76 Calculated R [place] 37 Calculated T [place] 57 Impression NORMAL SINUS RHYTHM WITH SINUS ARRHYTHMIA POSSIBLE LEFT ATRIAL ENLARGEMENT RSR' PATTERN IN V1 SUGGESTS INCOMPLETE RIGHT BUNDLE BRANCH BLOCK BORDERLINE ECG NO PREVIOUS ECGS AVAILABLE Confirmed by JENNIFER SURESH MD ([id number]) on 10/22/2023 1:00:28 PM Most recent Echo Recent Results (from the past 60516 hour(s)) ECHO Collection Time: 11/07/23 1:59 PM [...] were present. Isolated VEs were frequent (6.9%, [id number]), VE Couplets were rare (<1.0%, 21), and no VE Triplets were present. Ventricular Bigeminy and Trigeminy were present. Instructions Given to Patient: Instructions located in the after visit summary. Patient given verbal and written preop instructions and voices comprehension and compliance. SIGNATURE: Viktoria Causey PA-C PATIENT NAME: Rosa Alonzo DATE: 11/15/2023 TIME: 2:43 PM [facility] 11-15-2023 History and physical note HISTORY [...] SOB. Pulse today 75, regular rhythm today [id number]- 0 Ejection Fraction - Result: 63 % [...] Prior to Admission medications as of 11/15/23 5589 Medication Sig Last Dose Taking dicyclomine (BENTYL) [...] Covid Immunization Dates Overdue - Covid-19 Vaccine ( season) Overdue since 03/23/2023 04/06/2021 Imm Admin: COVID-19 original vaccine, age 12+ yr, monovalent ([employer] - PURPLE TOP) 03/16/2021 Imm Admin: COVID-19 original vaccine, age 12+ yr, monovalent ([employer] - [facility]) REVIEW OF SYSTEMS: positive findings are BOLD PAIN ASSESSMENT: Pain Pain Level: 5 Pain Location: Back-Lower Description: Aching Duration Units: Months Frequency: Continuous Intervention/Comfort measure: Relaxation, Heat General: No weight loss, malaise or fevers. Neuro: No history of TIA's, stroke, PACKAGING SALES REPRESENTATIVE tumor, impaired sensorium, hemiplegia, paraplegia or quadraplegia. No neurological symptoms or problems. Respiratory: No history of current cough or dyspnea, or pneumonia in the past 6 weeks. No history of respiratory/pulmonary symptoms or problems. Cardiovascular: Palpitations (SVT) Negative for Recent AK, CAD, CHF, HTN Negative for chest pain, [...] 402 QTC Calculation (Bazett) 424 Calculated P [place] 76 Calculated R [place] 37 Calculated T [place] 57 Impression NORMAL SINUS RHYTHM WITH SINUS ARRHYTHMIA POSSIBLE LEFT ATRIAL ENLARGEMENT RSR' PATTERN IN V1 SUGGESTS INCOMPLETE RIGHT BUNDLE BRANCH BLOCK BORDERLINE ECG NO PREVIOUS ECGS AVAILABLE Confirmed by JENNIFER SURESH MD ([id number]) on 10/22/2023 1:00:28 PM Most recent Echo Recent Results (from the past 40911 hour(s)) ECHO Collection Time: 11/07/23 1:59 PM [...] were present. Isolated VEs were frequent (6.9%, 21311), VE Couplets were rare (<1.0%, 21), and no VE Triplets were present. Ventricular Bigeminy and Trigeminy were present. Instructions Given to Patient: Instructions located in the after visit summary. Patient given verbal and written preop instructions and voices comprehension and compliance. SIGNATURE: Viktoria Causey PA-C PATIENT NAME: Rosa Alonzo DATE: 11/15/2023 TIME: 2:43 PM documented in this encounter [facility] 11-12-2023 Instructions Viktoria Causey PA-C - 11/12/2023 9:12 AM EDT PATIENT PREOPERATIVE INSTRUCTIONS Seema Davis MD has scheduled you for your procedure at this surgery center: [facility]: [phone] --[address] [address]. Please check in on the 1st floor [...] Procedures: - YOU MUST HAVE A RESPONSIBLE MUSIC INTERN TAKE YOU HOME. A COMMERCIAL RELATIONSHIP MANAGER OR OCULAR CARE TECHNICIAN CANNOT BE MADE A RESPONSIBLE MUSIC INTERN. - We recommend that a responsible person stays with you overnight to take care of you. - You cannot stay in a hotel alone after outpatient surgery. You will not be permitted to have your surgery, if you do not have someone to take care of you. If you already have an Advance Directive, please fax a copy to [phone] or email to for it to be [...] scanned into your chart that day. Viktoria Causey PA-C documented in this encounter [facility] 11-05-2023 Miscellaneous Notes Spoke with Ms Alonzo over the phone. For now, I will wait for the results of the Zio and the Echo and will reach back out. There is a chance that she may need to see EP, but I would like to see how frequently she is in Bigeminy. documented in this encounter [facility] 11-01-2023 Miscellaneous Notes Called and spoke [...] ongoing symptoms Staying hydrated Concerned Call CELL [phone] Leave Detailed messages The pt is calling. Please review the my chart message from today for an EKG attachment she sent from her ED visit last night. She went to the [place] ED. Are you able to revue her [...] message. Thank you documented in this encounter [facility] 10-23-2023 Miscellaneous Notes Received form requesting cardiac evaluation for surgical clearance from [facility] General Surgery with Dr. Seema Davis. Surgery Date: 11-21-2023 Fax to [facility] General Surgery: [phone] Rushing to review. CHATO Ramirez documented in this encounter [facility] 10-23-[address] Sedrick Rushing's office for cardiac clearance at [phone]. Abnormal heart sounds with gallbladder consult on 10/19/23. Received confirmation. Sent to scanning documented in this encounter [facility] 10-22-2023 Nurse Note EVENT MONITOR DISPOSABLE PATCH INSTRUCTIONS Patient Name: Rosa Alonzo [facility] Number: [id number] Skin prepped and cleansed with alcohol Patch secured to prepped area Monitor Activated Serial #: [id number] Patient Instructed: Prescribed order timeframe Bathing guidelines Usage of event button and diary documentation Return of monitor at the end of prescribed order Call with problems [phone] or [phone]. [phone] Patient expresses a good understanding of instructions Azael Larson LPN documented in this encounter [facility] 10-22-2023 History of Present illness Narrative Images from the original note were not included. [facility] Department of Cardiovascular Medicine SECTION OF REGIONAL CARDIOLOGY OUTPATIENT VISIT DATE October 21, 2023 OUTPATIENT VISIT TYPE NEW CONSULTATION PRIMARY CARE PHYSICIAN: Analia Holliday [address] [place] [address] CHIEF COMPLAINT: Palpitations HISTORY OF PRESENT ILLNESS: [...] Shortness of Breath, Unknown, Vomiting CURRENT MEDICATIONS: rzjkrx-ykqvohwa-yfopgys (CREON) 24,000-76,000 -120,000 unit delayed release capsule [...] on File Prior to Visit Medication Sig lsabks-ewckbgzb-zvbruwr (CREON) 24,000-76,000 -120,000 unit delayed release capsule [...] Sedrick Rushing MD Cardiovascular Medicine Staff [facility] [address] [place] [address] documented in this encounter [facility] 10-22-2023 Note HNO ID: [id number] Author: SEDRICK RUSHING MD Service: ? Author Type: Physician Type: Progress Notes Filed: 10/22/2023 15:17 Note Text: [facility] Department of Cardiovascular Medicine SECTION OF REGIONAL CARDIOLOGY OUTPATIENT VISIT DATE October 21, 2023 OUTPATIENT VISIT TYPE NEW CONSULTATION PRIMARY CARE PHYSICIAN: Analia Holliday [address] [place] [address] CHIEF COMPLAINT: Palpitations HISTORY OF PRESENT ILLNESS: [...] Shortness of Breath, Unknown, Vomiting CURRENT MEDICATIONS: trrbqj-igvxzete-ljkhuhc (CREON) 24,000-76,000 -120,000 unit delayed release capsule [...] on File Prior to Visit Medication Sig epdisz-bcbniktj-xvzixns (CREON) 24,000-76,000 -120,000 unit delayed release capsule [...] Sedrick Rushing MD Cardiovascular Medicine Staff [facility] [address] [place] [address] [facility] 10-19-2023 Note HNO ID: [id number] Author: DAXA GRAY RN Service: ? Author [...] Daxa Gray RN In Department: GENERAL SURGERY [facility] 10-19-2023 Note HNO ID: [id number] Author: DAXA GRAY RN Service: ? Author [...] EF-69%. This measurement is within normal limits [facility] 10-19-2023 Note HNO ID: [id number] Author: SEEMA DAVIS MD Service: ? Author [...] Take 4 mg by mouth as needed. 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 Lives with her . [...] the date of the service which included odhk-bb-iyfe patient care, completing clinical documentation, obtaining and/or reviewing separately obtained history, performing a medically appropriate examination, counseling and educating the patient/family/caregiver, and independently interpreting results (not separately reported). Seema Davis MD . [facility] 10-19-2023 Note Education (JOHANNYisel) ROSA ALONZO ([id number]) 2000 F Date Time Provider Department 10/19/23 DAXA GRAYYisel Reason for Visit: Education Of Patient/family [904] Primary Visit Diagnosis:Acalculous cholecystitis [K81.9] Order(s):PT ED DIGESTIVE DISEASE [3363281] Order #: [id number]: 1 During your visit today, we recorded the following information about you: Allergies As of Date: 10/19/2023 Noted Allergy Reaction METRONIDAZOLE 09/07/2020 1 - Mental Status Change 6 - Diarrhea 8 - GI Upset 4 - Hives 14 - Other: See Comments 2 - Rash 12 - Shortness of Breath 16 - Unknown 11 - Vomiting Date Reviewed: 10/19/2023 Reviewed by: Whitbread, Beth, MA - Fully Assessed Prescriptions as of 10/19/2023 - zajonm-avaxowhn-tgaobpf (CREON) 24,000-76,000 -120,000 unit delayed release capsule [...] Encounter Status:Closed by DAXA GRAY on 10/19/23 [facility] 09-11-2023 Miscellaneous Notes Please refer to [facility] ms dated 09/11/2023. Gisela Ponce RN Patient calling to see if she is to follow up with Dr. Menon. He did recommend surgeon consult for cholecystectomy. Patient is asking for referral Please adivse patient documented in this encounter [facility] 09-06-2023 Nurse Note 1345 Pt in Endo RR in satisfactory condition Pt denies c/o pain/discomfort 1345 Discharge instructions given to patient 1400 Dr. Menon at bedside speaking with patient and her mother All questions/concerns addressed 1345 Pt sitting up and drinking fluids without incident 1410 Left Endo in satisfactory condition Rickie Gu, VIRGILIO PATIENT EDUCATION TOPIC: PROCEDURE / SURGERY: Procedure/Surgery: [...] REFERRAL (RECOMMENDATION): None documented in this encounter [facility] 09-06-2023 History and physical note PROCEDURAL [...] mouth once daily. 09/05/2023 at 1000 Yes bdvdkp-nefbfhjz-efptqcp (CREON) 24,000-76,000 -120,000 unit delayed release capsule [...] TIME: 12:20 PM documented in this encounter [facility] 07-05-2023 Note HNO ID: [id number] Author: Mckenzie Heck RT(Laura) Service: Radiology Author Type: Technologist Type: Progress [...] CT; Exam(s) Completed: CTA Abdomen Pelvis SIGNATURE: RT Seema(R) PATIENT NAME: Rosa Alonzo DATE: July 05, 2023 TIME: 10:58 AM [facility] 06-17-2023 Miscellaneous Notes To summarize the [...] in one of her images report from [facility]. I will recommend CT-angiography to r/o gut [...] were not included. Isabelle Menon MD Hykes, David L Jr., DO; Gisela Ponce, VIRGILIO Higgins: Call patient and inform her that I [...] Gisela Ponce RN documented in this encounter [facility] 06-06-2023 History and physical note Images [...] her mother who works as in at [employer] [facility] [employer]. The problem started when she was age [...] an issue, start amitriptyline. [facility] referral [facility] if symptoms fail to improve. 1. Chronic [...] divisum. 12/01/22 HIDA scan was done at [facility]: Normal study EF 69% US: 10/31/22: [...] with 350 mL of normal saline. 08/02/22 [facility] Gastroenterology Rosa Alonzo is a [...] Abs Lymph 1.00 - 4.00 k/uL 2.17 [place]% % 8.1 Abs [place] <0.87 k/uL 0.36 Eosin% % 5.6 Abs [...] Menon MD, FACP documented in this encounter [facility] 06-01-2023 Evaluation note Encounter Date Diagnosis Assessment Notes May, Vitamin D insufficiency (ICD-10 - E55.9) [employer] Other 11-02-2023 Evaluation note* Encounter Date Diagnosis Assessment Notes Treatment Notes Treatment Clinical Notes May, Well adult exam (ICD-10 - Z00.00) Routine lab work ordered. She will follow up with eye doctor due to some floaters that she is having. 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 Specialty notes reviewed as received. Patient is [...] Lexapro 10 mg daily. Will continue this. [employer] Other 10-31-2023 Instructions* Patient Instructions* Dara Butler Jr., - 05/22/2023 11:39 AM EDT Start amitriptyline Keep appt with Dr. Menon for pancreatic / biliary clinic [facility] History of Present illness Narrative* Dara Butler Jr., - 05/22/2023 11:20 AM EDT Patient presents [...] last colonoscopy was 8 months ago in [place]. Past GI workup 05/08/23 ER visit notes [...] EDT Office Visit [facility] [address] [place] [address] Kyree Noguera MD Abnormal flushing and sweating [...] per patient. She sees a specialist to [facility] doctor Luke for GI- currently awaiting genetic testing for [...] dicyclomine 12/01/22 HIDA scan was done at [facility]: Normal study EF 69% US: 10/31/22: [...] with 350 mL of normal saline. 08/02/22 [facility] Gastroenterology Rosa Alonzo is a [...] Negative Mitogen minus Nil >=0.50 IU/mL >9.96 [facility] GI PANEL (PCR) (04/02/2023 10:00 AM EDT) Results - [facility] GI PANEL (PCR) (04/02/2023 10:00 AM EDT) CAMPYLOBACTER NOT DETECTED NOT DETECTE TBH CLOSTRIDIUM [...] Abs Lymph 1.00 - 4.00 k/uL 2.17 [place]% % 8.1 Abs [place] <0.87 k/uL 0.36 Eosin% % 5.6 Abs [...] BY MOUTH THREE TIMES DAILY WITH MEALS hqcidg-bftpmndw-nqfxodx (ZENPEP) 40,000-126,000- 168,000 unit delayed release capsule [...] an issue, start amitriptyline. Consider referral to [facility] if symptoms fail to improve. 1. Chronic [...] studies Dara Butler Jr. documented in this encounterOhio [facility]10-31-2023 NoteHNO ID: [id number] Author: Dara Butler Jr., DO Service: ? [...] last colonoscopy was 8 months ago in [place]. Past GI workup 05/08/23 ER visit notes [...] Office Visit [facility] [address] [place] [address] Kyree Noguera MD Abnormal flushing and sweating [...] per patient. She sees a specialist to [facility] doctor Butler for GI- currently awaiting [...] dicyclomine 12/01/22 HIDA scan was done at [facility]: Normal study EF 69% US: 10/31/22: (care everywhere) Liver normal Gallbaldder appears normal with (more content not included)...[facility]10-12-2023 Miscellaneous Notes* Telephone Encounter - Analia [...] Dara Butler Jr., DO documented in this encounterOhio Valley Surgical Hospital10-03-2023 NoteHNO ID: [id number] Author: Amy Hays [facility] Service: ? Author Type: Genetic Counselor Type: [...] visit. Either the patient or their legal field representative/health education has been informed of the risks and [...] GENETIC TESTING: None. SOCIAL HISTORY: Lives in [place], [place] with her . 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 FAMILY HISTORY: - Patient's ethnicity: Maternal - ; Paternal - , . - Partner's ethnicity: not applicable. - No known -Burmese, Mediterranean, /, German-Cook Islander/Cajun, or Ashkenazi Restorationism ancestry unless noted above. - Parental consanguinity: [...] as though the disease (more content not included)...[facility]09-23-2023 Miscellaneous Notes* Telephone Encounter - Analia Estevez RN - 04/14/2023 9:23 AM EDT Patient has viewed results per [employer]. Analia Estevez RN * Telephone Encounter - Analia Estevez RN - 04/14/2023 9:23 AM EDT ----- Message from Dara Butler Jr., DO sent at 04/13/2023 4:04 PM EDT ----- MRI negative for pancreatitis and anatomic pancreatic abnormalities. Dara Butler Jr., DO documented in this encounterOhio Valley Surgical Hospital09-08-2023 Miscellaneous Notes* Telephone Encounter - Analia Estevez RN - 03/30/2023 10:33 AM EDT Patient has viewed results per [employer]. Analia Estevez RN * Telephone Encounter - [...] CDIFF. She had this testing done through [facility]. She is working on getting faxed results to office. Pt states she feels fine, no symptoms but would like to follow up with nurse. Please advise Patient has been identified by name and birthdate. Duration of symptoms: N/A Person calling: self Call patient at: at home [phone] (home) [phone] (cell) Was an appointment scheduled: No Closing statement: Results or non-symptom based questions: Thank you for calling [facility], your call will be returned within the next business day. Eva Wynne documented in this encounterOhio Valley Surgical Hospital09-05-2023 Evaluation note* Encounter Date Diagnosis Assessment Notes Treatment Notes Treatment Clinical Notes Mar, Diarrhea (ICD-10 - R19.7) [employer] Other 09-01-2023 Evaluation note* Encounter Date Diagnosis Assessment Notes Treatment Notes Treatment Clinical Notes Mar, C. difficile diarrhea (ICD-10 - A04.72) [employer] Other 09-01-2023 Miscellaneous Notes* Telephone Encounter - Chiara Pizarro MA - 03/23/2023 7:59 AM EDT Pt was notified via . * Telephone Encounter - Nae Ibarra MD - 03/22/2023 9:36 PM EDT Please Call patient if MyChart note not read to review results/released to My Chart if tests completed at [facility]: Improved/Normal labs and no inflammation. Take over [...] hepatitis panel, quantiferon tb; documented in this encounterOhio Valley Surgical Hospital08-30-2023 Miscellaneous Notes* Telephone Encounter - Analia Estevez RN - 03/21/2023 11:02 AM EDT Results were viewed by patient per [employer]. Analia Estevez RN * Telephone Encounter - Analia Estevez RN - 03/21/2023 11:00 AM EDT ----- Message from Dara Butler Jr., DO sent at 03/21/2023 7:46 AM EDT ----- Labs essentially unremarkable including negative celiac Dara Butler Jr., DO documented in this encounterOhio Valley Surgical Hospital08-29-2023 Evaluation note* Encounter Date Diagnosis Assessment Notes Treatment Notes Treatment Clinical Notes Feb, Diarrhea (ICD-10 - R19.7) [employer] Other 08-25-2023 Miscellaneous Notes* Telephone Encounter - Analia Estevez RN - 03/16/2023 12:38 PM EDT Per our discussion please review and sign orders for MRI per out discussion based off [employer] message per patient. Analia Estevez RN documented in this encounterOhio Valley Surgical Hospital07-18-2023 Instructions* Patient Instructions* Dara Butler Jr., - 02/06/2023 10:35 AM EDT Check labs Start Levbid Start Zenpep Stop dicyclomine documented in this encounterOhio Valley Surgical Hospital07-18-2023 History of Present illness Narrative* Dara Butler Jr., - 02/06/2023 10:30 AM EDT Consultation requested [...] REFLEX Dara Butler Jr. documented in this encounterOhio Valley Surgical Hospital06-05-2023 Miscellaneous Notes* Telephone Encounter - Ana Eckert - 12/25/2022 10:22 AM EDT Spoke with patient Scheduled Consult to GI for first avail at [place] in January Did not schedule Med Gen Consult. Still pending review- patient said she will schedule when she sees Dr Luke Eckert December 25, 2022 10:27 AM * Telephone Encounter - Chiara Pizarro MA - 12/25/2022 9:22 AM EDT Pt has been notified via [employer] * Telephone Encounter - Nae Ibarra MD - 12/23/2022 12:53 AM EDT Please call patient. Thank you for the update and your kind words. Sorry to hear about your discomfort. Placed a consult to medical genetics and GI as requested. May schedule at your convenience. Hope you feel better soon! Warm regards, :) documented in this encounterOhio Valley Surgical Hospital05-03-2023 Evaluation note* Encounter Date Diagnosis Assessment [...] K58.0) Recommended Benefiber Follow up 2 months [employer] Other 02-20-2023 [facility] Follow-Up Patient Visit CHIEF COMPLAINT Chief [...] date list that I (more content not included)...[facility]02-08-2023 [facility] Follow-Up Patient Visit CHIEF COMPLAINT Chief [...] HPI GENITOURINARY: negative IN (more content not included)...[facility]01-24-2023 NotePatient: Rosa Alonzo Pre-sedation Evaluation: No past [...] Only, Palpitations, Rash and 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 [facility] Gastroenterology Follow-Up Patient Visit CHIEF [...] mass index (BMI) of 20 to 24 [facility] Chronic fatigue Altered bowel function Lower abdominal [...] conjunctiva pink and normal (more content not included)...[facility]01-01-2023 History general Narrative - Reported* Type Description Date Medical History Esophageal reflux Medical History anxiety Surgical History wisdom teeth extract Surgical History FMT 07/2022 Hospitalization History pancreatitis [employer] Other 10-06-2022 Evaluation note* Encounter Date Diagnosis Assessment Notes Treatment Notes Treatment Clinical Notes Apr, Irritable bowel syndrome with diarrhea (ICD-10 - K58.0) PATIENT DOES HAVE 3 BOWEL MOVEMENTS A DAY SOMETIMES 1 Apr, RUQ pain (ICD-10 - R10.11) [facility] [employer] Other 08-24-2022 History of Present illness Narrative* Mckenzie Kincaid RN - 03/15/2022 3:30 PM EDT Patient verified full name and * Phani Presley MD - 03/15/2022 3:30 PM EDT GI CLINIC PROGRESS NOTE PATIENT NAME: Rosa Henao ATTENDING: Phani Presley MD : 2000 AGE: 21 y.o. 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 Symptoms persist, possible post infection IBS vs recurrent c. Diffinfection. Active marijuana user, smokes viper as well. DISPOSITION AND PLAN: 1. Will obtain c diff toxin Ag 2. Stool enteric panel 3. [place] of Bentyl 4. Imodium prn (after infection is ruled out) 5. Marijuana and viper abstinence counseling provided. Face to face interaction: 25 Time to complete visit: 60 Phani Presley MD Family Law Mediator Division of Gastroenterology, Hepatology and Nutrition Department of Internal Medicine [facility] documented in this encounterGrand [facility] Instructions* Patient Instructions* Phani Presley MD - 03/15/2022 3:30 PM EDT C diff toxin Ag Enteric stool panel Dicyclomine Imodium prn if infection is ruled out documented in this [facility]03-08-2022 Evaluation note * Encounter Date Diagnosis Assessment Notes Treatment Notes Treatment Clinical Notes Sep, C. difficile diarrhea (ICD-10 - A04.72) START DIFICID DIRECTED REFERRAL TO [facility] FOR RECURRET C.DIFF [employer] Other 11-30-2021 NoteChief Complaint consultation for nausea [...] Use:., 06/21/2021 Family History Cancer: Father. Stroke: Mother.[facility]:Result Comment: Electronically Signed By: KALEB MACKEY, Ana Lan\Date and Time Signed: 06/21/21 20:44 [id number] Evaluation note* Encounter Date Diagnosis Assessment Notes [...] Patient care instructions given in writting by [facility] Care At Home document. [employer] Other 05-18-2021 NoteChief Complaint Consultation for Colonoscopy [...] Use:., 12/07/2020 Family History Cancer: Father. Stroke: Mother.[facility] HospitalComment on above:Result Comment: Electronically Signed By: KALEB MACKEY, Ana Lan\Date and Time Signed: 12/07/20 17:18 [id number] Miscellaneous Notes* Result Encounter Note - Rickie Naqvi DO - 12/02/2020 10:00 AM EDT CTA head and neck are both normal. No abnormalities noted. documented in [facility] noteNo [employer] Other Evaluation note* Diagnosis Diarrhea, unspecified type- Primary documented in this encounter [facility]* Diagnosis Generalized abdominal pain- Primary Abdominal pain, generalized documented in this encounter [facility] note* Diagnosis Chronic pancreatitis, unspecified pancreatitis type (HCC)- Primary Generalized abdominal pain Abdominal pain, generalized Intestinal malabsorption, unspecified type documented in this encounter [facility] note* Diagnosis Chronic recurrent pancreatitis (HCC)- Primary Chronic pancreatitis documented in this encounter [facility] note* Diagnosis Chronic pancreatitis, unspecified pancreatitis type (HCC)- Primary Generalized abdominal pain Abdominal pain, generalized Irritable bowel syndrome with diarrhea Irritable bowel syndrome History of Clostridioides difficile colitis documented in this encounter [facility] note* Diagnosis Family history of ischemic heart disease and other diseases of the circulatory system History of acute pancreatitis Personal history of other diseases of digestive system Carotid artery aneurysm (HCC) Aneurysm of artery of neck documented in this encounter [facility] noteNo assessment information availableParkview Health [facility] Hospital Work Phone: evalurlzab note* Diagnosis RUQ pain- Primary Abdominal pain, right upper quadrant History of pancreatitis Personal history of other diseases of digestive system Nausea Nausea alone Diarrhea, unspecified type History of Clostridium difficile infection Personal history of other infectious and parasitic disease documented in this encounter [facility]* Diagnosis Generalized abdominal pain- Primary Abdominal pain, generalized RUQ pain Abdominal pain, right upper quadrant Chronic recurrent pancreatitis (HCC) Chronic pancreatitis Diarrhea, unspecified type documented in this encounter [facility]* Diagnosis Chronic recurrent pancreatitis (HCC) Chronic pancreatitis documented in this encounter [facility]* Diagnosis Palpitations- Primary Other supraventricular tachycardia (HCC) Cholecystitis Cholecystitis, unspecified documented in this encounter [facility] note* Diagnosis Pre-op examination- Primary Preoperative examination, unspecified Palpitations Organic anxiety syndrome Anxiety disorder in conditions classified elsewhere Cholecystitis Cholecystitis, unspecified documented in this encounter [facility] note* Diagnosis Onset Date Resolution Status Esophageal reflux acute LOCO (generalized anxiety disorder) acute Irritable bowel syndrome with diarrhea acute Vitamin D insufficiency [facility] Work Phone: evaluation note* Diagnosis S/P gastrointestinal surgery, follow-up exam- Primary Follow-up examination, following other surgery S/P laparoscopic cholecystectomy Other postprocedural status documented in this encounter [facility] note* Diagnosis Generalized abdominal pain- Primary Abdominal pain, generalized History of acute pancreatitis Personal history of other diseases of digestive system documented in this encounter [facility] note* Diagnosis Upper abdominal pain- Primary Abdominal pain, other specified site Dyspepsia and disorder of function of stomach Dyspepsia and other specified disorders of function of stomach Dyspepsia Dyspepsia and other specified disorders of function of stomach documented in this encounter [facility] note* Diagnosis Upper abdominal pain Abdominal pain, other specified site Dyspepsia and disorder of function of stomach Dyspepsia and other specified disorders of function of stomach Dyspepsia Dyspepsia and other specified disorders of function of stomach documented in this encounter [facility] note* Diagnosis Upper abdominal pain Abdominal pain, other specified site Dyspepsia and disorder of function of stomach Dyspepsia and other specified disorders of function of stomach documented in this encounter [facility] note* Diagnosis Epigastric pain- Primary Abdominal pain, epigastric documented in this encounter [facility] note* Diagnosis Onset Date Resolution Status LOCO (generalized anxiety disorder) [facility] Work Phone: Hisnqqu general Narrative - Reported* Type Description Date Medical History Esophageal reflux Medical History anxiety Surgical History wisdom teeth extract Hospitalization History pancreatitis [facility] [employer] Other History general Narrative - Reported* Type Description Date Medical History Esophageal reflux Medical History ANXIETY Medical History PANCREATITIS Medical History C DIFF Medical History COLON INFLAMMATION Medical History 2 FECAL TRANSPLANTS Medical History ENDOMETRIOSIS Surgical History wisdom teeth extract Surgical History FMT 07/2022 Surgical History LAPROSOCOPY FOR ENDOMETRIOSIS Hospitalization History pancreatitis [facility] [employer] Other Reason for referral (narrative)* Diagnostic Procedure Only (Routine) - Closed Specialty Diagnoses / Procedures Referred By Contac t Referred To Contact CT IMAGING Diagnoses Carotid artery aneurysm (HCC) History of acute pancreatitis Procedures CTA NECK W IVCON CTA NECK, W/WO C, W/3D Rickie Naqvi DO [id number] Imaging [facility] Referral ID Status Reason Start Date Expiration Date V isits Requested Visits Authorized [id number] Closed Auto-Generate d Referral 11/18/2020 05/17/2021 1 1 * Diagnostic Procedure Only (Routine) - Closed Specialty Diagnoses / Procedures Referred By Contac t Referred To Contact CT IMAGING Diagnoses Family history of ischemic heart disease and other diseases of the circulatory system History of acute pancreatitis Procedures CTA HEAD WO/W IVCON CTA HEAD WWO C, W/3D Rickie Naqvi DO [address] [address] Ct Imaging [place] [address] Referral ID Status Reason Start Date Expiration Date V isits Requested Visits Authorized [id number] Closed Auto-Generate d Referral 11/18/2020 12/18/2021 1 1 [facility] for referral (narrative)* Outpatient Procedure (Routine) - Closed Specialty Diagnoses / Procedures [facility] Diagnoses Chronic recurrent pancreatitis (HCC) Procedures EGD - THERAPEUTIC, EUS, OR TUBE INTERVENTIONS EDG US EXAM SURGICAL ALTER STOM DUODENUM/[place] [address] [place] [address] [facility] [address] [place] [address] Referral ID Status Reason Start Date Expiration Date V isits Requested Visits Authorized [id number] Closed Auto-Generate d Referral 07/13/2023 07/13/2024 1 1 [facility] for referral (narrative)* Outpatient Procedure (Routine) - Authorized Specialty Diagnoses / Procedures [facility] Diagnoses Other supraventricular tachycardia (HCC) Palpitations Procedures ECHO ECHO TTHRC R-T 2D W/WOM-MODE COMPL SPEC&[place] [address] [facility] [place] [address] [facility] [address] [address] Referral ID Status Reason Start Date Expiration Date Visits Requested Visits Authorized [id number] Authorized Auto-Generat ed Referral 10/22/2023 10/21/2024 1 1 [facility] for referral (narrative)* Diagnostic Procedure Only (Routine) - Authorized Specialty Diagnoses / Procedures [facility] Referred To Contact MOLECULAR & FUNCTIONAL IMAGING Diagnoses Upper abdominal pain Dyspepsia and disorder of function of stomach Dyspepsia Procedures NM GASTRIC EMPTYING SOLID GASTRIC EMPTYING STUDY Dara Butler Jr., DO [address] [place] [address] Molecular & Functional Imaging [address] [place], [place] [id number] Referral ID Status Reason Start Date Expiration Date Visits Requested Visits Authorized [id number] Authorized Auto-Generat ed Referral 12/28/2023 01/26/2025 1 1 * Diagnostic Procedure Only (Routine) - Pending Review Specialty Diagnoses / Procedures Referred By Contac t Referred To Contact XR IMAGING Diagnoses Upper abdominal pain Dyspepsia and disorder of function of stomach Procedures XR UPPER GI SINGLE CONTRAST RADIOLOGIC EXAM UPR GI TRC SINGLE CONTRAST STUDY Dara Butler Jr., DO [address] [place] [address] X[facility] [place] [address] Referral ID Status Reason Start Date Expiration Date Visits Requested Visits Authorized [id number] Pending Review Auto-Generat ed Referral 12/28/2023 01/26/2025 1 1 [facility] for referral (narrative)* Diagnostic Procedure Only (Routine) - Closed Specialty Diagnoses / Procedures [facility] Referred To Contact MOLECULAR & FUNCTIONAL IMAGING Diagnoses Upper abdominal pain Dyspepsia and disorder of function of stomach Dyspepsia Procedures NM GASTRIC EMPTYING SOLID GASTRIC EMPTYING STUDY Dara Butler Jr., DO [address] [place] [address] Molecular & Functional Imaging [address] [place], [place] [id number] Referral ID Status Reason Start Date Expiration Date V isits Requested Visits Authorized [id number] Closed Auto-Generate d Referral 12/28/2023 01/26/2025 1 1 [facility] for referral (narrative)* Diagnostic Procedure Only (Routine) - Closed Specialty Diagnoses / Procedures Referred By Contac t Referred To Contact XR IMAGING Diagnoses Upper abdominal pain Dyspepsia and disorder of function of stomach Procedures XR UPPER GI SINGLE CONTRAST RADIOLOGIC EXAM UPR GI TRC SINGLE CONTRAST STUDY Dara Butler Jr., DO [address] [place] [address] [place] [address] Referral ID Status Reason Start Date Expiration Date V isits Requested Visits Authorized [id number] Closed Auto-Generate d Referral 02/11/2024 07/22/2024 1 1 [facility] for visit Narrative* Diagnostic Procedure Only (Routine) - Closed Specialty Diagnoses / Procedures Referred By Contac t Referred To Contact CT IMAGING Diagnoses Carotid artery aneurysm (HCC) History of acute pancreatitis Procedures CTA NECK W IVCON CTA NECK, W/WO C, W/3D Rickie Naqvi, [address] [place] [address] [place] [address] Referral ID Status Reason Start Date Expiration Date V isits Requested Visits Authorized [id number] Closed Auto-Generate d Referral 11/18/2020 05/17/2021 1 1 [facility] for visit Narrative* Outpatient Procedure (Routine) - Closed Specialty Diagnoses / Procedures Referred By Contac t Referred To Contact [facility] Diagnoses Chronic recurrent pancreatitis (HCC) Procedures EGD - THERAPEUTIC, EUS, OR TUBE INTERVENTIONS EDG US EXAM SURGICAL ALTER STOM DUODENUM/[place] [address] [place] [address] [facility] [address] [place] [address] Referral ID Status Reason Start Date Expiration Date V isits Requested Visits Authorized [id number] Closed Auto-Generate d Referral 07/13/2023 07/13/2024 1 1 [facility] for visit Narrative* Diagnostic Procedure Only (Routine) - Closed Specialty Diagnoses / Procedures Referred By Contac t Referred To Contact MOLECULAR & FUNCTIONAL IMAGING Diagnoses Upper abdominal pain Dyspepsia and disorder of function of stomach Dyspepsia Procedures NM GASTRIC EMPTYING SOLID GASTRIC EMPTYING STUDY Dara Butler Jr., DO [address] [place] [address] Molecular & Functional Imaging [address] [place] [address] Referral ID Status Reason Start Date Expiration Date V isits Requested Visits Authorized [id number] Closed Auto-Generate d Referral 12/28/2023 01/26/2025 1 1 [facility] N[facility]* Diagnostic Procedure Only (Routine) - Closed Specialty Diagnoses / Procedures Referred By Contac t Referred To Contact XR IMAGING Diagnoses Upper abdominal pain Dyspepsia and disorder of function of stomach Procedures XR UPPER GI SINGLE CONTRAST RADIOLOGIC EXAM UPR GI TRC SINGLE CONTRAST STUDY Dara Butler Jr., DO [address] [place] [address] [place] [address] Referral ID Status Reason Start Date Expiration Date V isits Requested Visits Authorized [id number] Closed Auto-Generate d Referral 02/11/2024 07/22/2024 1 1 [facility] Summary Purpose Family History Relationship Condition Age at Onset Recorded Date/T jael father Hypertension Unknown Not Specified History of stroke Unknown Relationship Condition Age at Onset Recorded Date/T jael father Hypertension Unknown mother History of stroke Unknown Advance Directives Advance Directive Response Recorded Date/ Time Advance Directives No August 26, 2019 7:34am Advance Directive Response Recorded Date/ Time Advance Directives No August 26, 2019 8:34am Reason for Referral Specialty Diagnoses / Procedures Referred By Chance t Referred To Contact CT IMAGING Diagnoses Generalized abdominal pain RUQ pain Chronic recurrent pancreatitis (HCC) Diarrhea, unspecified type Procedures CTA ABD/PEL W IVCON CT ANGIO ABD&PLVIS CNTRST MTRL W/[place] [address] [place] [address] [place] [address] Referral ID Status Reason Start Date Expiration Date Visits Requested Visits Authorized [id number] Authorized Auto-Generat ed Referral 3 07/12/2024 1 1 Specialty Diagnoses / Procedures Referred By Chance t Referred To Contact MR IMAGING Diagnoses Chronic recurrent pancreatitis (HCC) Procedures MRI ABDOMEN WO/W IVCON MRI ABDOMEN W/O & W/CONTRAST MATERIAL Dara Butler Jr., DO [address] [facility] [place] [address] [place] [address] Referral ID Status Reason Start Date Expiration Date Visits Requested Visits Authorized [id number] Authorized Auto-Generat ed Referral 03/16/2023 04/14/2024 1 1 Specialty Diagnoses / Procedures Referred By Contac t Referred To Contact Gastroenterology Diagnoses Generalized abdominal pain Procedures CONSULT TO GASTROENTEROLOGY OFFICE/OUTPATIENT [facility] 60-74 MINUTES Nae Ibarra MD [address] [address] Referral ID Status Reason Start Date Expiration Date Visits Requested Visits Authorized [id number] Authorized PCP Requested Referral 12/23/2022 12/23/2023 1 1 Specialty Diagnoses / Procedures Referred By Contac t Referred To Contact Diagnoses Generalized abdominal pain Procedures CONSULT TO MEDICAL GENETICS - GENERAL OFFICE/OUTPATIENT [facility] 60-74 MINUTES MEDICAL GENETICS COUNSELING EACH 30 MINUTES Nae Ibarra MD [address] [address] [address] Referral ID Status Reason Start Date Expiration Date Visits Requested Visits Authorized [id number] Pending Review PCP Requested Referral Auto-Generate d Referral 12/23/2022 12/23/2023 1 1 Reason Please schedule cons ult to evaluate and treat at [facility] (in [place]) for recurrent c.diff infection. (for possible fecal [...] with diarrhea Vitamin D insufficiency Chief Complaint Unknown Est patient/wellness Reason for Visit LOCO (generalized anx iety disorder) Additional Source Comments INFORMATION SOURCE (unrecogn ized section and content) DATE CREATED AUTHOR 09/15/2021 Samson Vanegas [facility] DATE CREATED AUTHOR AUTHOR'S ORGANIZ ATION 02/16/2022 [facility] DATE CREATED AUTHOR AUTHOR'S ORGANIZ ATION 03/18/2022 [facility] DATE CREATED AUTHOR AUTHOR'S ORGANIZ ATION 11/03/2022 [facility] DATE CREATED AUTHOR AUTHOR'S ORGANIZ ATION 12/04/2022 [facility] DATE CREATED AUTHOR AUTHOR'S ORGANIZ ATION 04/26/2023 [facility] DATE CREATED AUTHOR AUTHOR'S ORGANIZ ATION 12/10/2023 [facility] DATE CREATED AUTHOR AUTHOR'S ORGANIZ ATION 01/03/2024 [facility] DATE CREATED AUTHOR AUTHOR'S ORGANIZ ATION 02/08/2024 [facility] DATE CREATED AUTHOR AUTHOR'S ORGANIZ ATION 02/13/2024 [facility] DATE CREATED AUTHOR AUTHOR'S ORGANIZ ATION 03/15/2024 [facility] REASON FOR VISIT (unrecogniz ed section and content) Reason Comments New Patient Specialty Diagnoses / Procedures Referred By Contac t Referred To Contact Gastroenterology Diagnoses C. difficile diarrhea Jaya Parikh MD [address] [place] [id number] Referral ID Status Reason Start Date Expiration Date V isits Requested Visits Authorized [id number] Pending Review 10/07/2021 11/01/2022 1 1 Reason Comments Abdominal Pain Specialty Diagnoses / Procedures Referred By Contac t Referred To Contact Gastroenterology Diagnoses Generalized abdominal pain Procedures CONSULT TO GASTROENTEROLOGY OFFICE/OUTPATIENT NEW HIGH MDM 60-74 MINUTES Nea Ibarra MD [address] [place] [address] Referral ID Status Reason Start Date Expiration Date V isits Requested Visits Authorized [id number] Closed PCP Requested Referral 12/23/2022 12/23/2023 1 [...] tachycardia (HCC) Procedures CONSULT TO CARDIOLOGY OFFICE/OUTPATIENT [facility] HIGH MDM 60 [place] [address] [place] [address] Referral ID Status Reason Start Date Expiration Date V isits Requested Visits Authorized [id number] Closed PCP Requested Referral 10/19/2023 10/18/2024 1 1 Reason Comments Cardiac Clearance Reason Comments Palpitations ED pt update Reason Comments Patient Question PVCs and Frequent ED visits. Reason Comments Anesthesia Consult Cholecystitis Reason Comments Pre-Op Exam Reason Comments Post Op Follow Up 11/21/23 lap maricarmen Reason Onset Date Comments Refill Request 12/13/2023 Reason Comments Radiology NM Reason Comments Consult Source Comments (unrecognize d section and content) In the event this informatio n is protected by the Federal Confidentiality of Alcohol and Drug Abuse Patient Records regulations: The Federal rules restrict any use of the information to criminally investigate or prosecute any alcohol or drug abuse patient.[facility] the event this information is protected by the Federal Confidentiality of Alcohol and Drug Abuse Patient Records regulations: The Federal rules restrict any use of the information to criminally investigate or prosecute any alcohol or drug abuse patient.[facility] the event this information is protected by the Federal Confidentiality of Alcohol and Drug Abuse Patient Records regulations: The Federal rules restrict any use of the information to criminally investigate or prosecute any alcohol or drug abuse patient.[facility] the event this information is protected by the Federal Confidentiality of Alcohol and Drug Abuse Patient Records regulations: The Federal rules restrict any use of the information to criminally investigate or prosecute any alcohol or drug abuse patient.[facility] the event this information is protected by the Federal Confidentiality of Alcohol and Drug Abuse Patient Records regulations: The Federal rules restrict any use of the information to criminally investigate or prosecute any alcohol or drug abuse patient.[facility] Hospital[facility] the event this information is protected by the Federal Confidentiality of Alcohol and Drug Abuse Patient Records regulations: The Federal rules restrict any use of the information to criminally investigate or prosecute any alcohol or drug abuse patient.[facility] the event this information is protected by the Federal Confidentiality of Alcohol and Drug Abuse Patient Records regulations: The Federal rules restrict any use of the information to criminally investigate or prosecute any alcohol or drug abuse patient.[facility] Hospital[facility] the event this information is protected by the Federal Confidentiality of Alcohol and Drug Abuse Patient Records regulations: The Federal rules restrict any use of the information to criminally investigate or prosecute any alcohol or drug abuse patient.[facility] Hospital[facility] the event this information is protected by the Federal Confidentiality of Alcohol and Drug Abuse Patient Records regulations: The Federal rules restrict any use of the information to criminally investigate or prosecute any alcohol or drug abuse patient.[facility] Hospital[facility] the event this information is protected by the Federal Confidentiality of Alcohol and Drug Abuse Patient Records regulations: The Federal rules restrict any use of the information to criminally investigate or prosecute any alcohol or drug abuse patient.[facility] HospitalIn the event this information is protected by the Federal Confidentiality of Alcohol and Drug Abuse Patient Records regulations: The Federal rules restrict any use of the information to criminally investigate or prosecute any alcohol or drug abuse patient.[facility] HospitalIn the event this information is protected by the Federal Confidentiality of Alcohol and Drug Abuse Patient Records regulations: The Federal rules restrict any use of the information to criminally investigate or prosecute any alcohol or drug abuse patient.[facility] HospitalIn the event this information is protected by the Federal Confidentiality of Alcohol and Drug Abuse Patient Records regulations: The Federal rules restrict any use of the information to criminally investigate or prosecute any alcohol or drug abuse patient.[facility] HospitalIn the event this information is protected by the Federal Confidentiality of Alcohol and Drug Abuse Patient Records regulations: The Federal rules restrict any use of the information to criminally investigate or prosecute any alcohol or drug abuse patient.[facility] HospitalIn the event this information is protected by the Federal Confidentiality of Alcohol and Drug Abuse Patient Records regulations: The Federal rules restrict any use of the information to criminally investigate or prosecute any alcohol or drug abuse patient.[facility] HospitalIn the event this information is protected by the Federal Confidentiality of Alcohol and Drug Abuse Patient Records regulations: The Federal rules restrict any use of the information to criminally investigate or prosecute any alcohol or drug abuse patient.[facility] HospitalIn the event this information is protected by the Federal Confidentiality of Alcohol and Drug Abuse Patient Records regulations: The Federal rules restrict any use of the information to criminally investigate or prosecute any alcohol or drug abuse patient.[facility] HospitalIn the event this information is protected by the Federal Confidentiality of Alcohol and Drug Abuse Patient Records regulations: The Federal rules restrict any use of the information to criminally investigate or prosecute any alcohol or drug abuse patient.[facility] HospitalIn the event this information is protected by the Federal Confidentiality of Alcohol and Drug Abuse Patient Records regulations: The Federal rules restrict any use of the information to criminally investigate or prosecute any alcohol or drug abuse patient.[facility] HospitalIn the event this information is protected by the Federal Confidentiality of Alcohol and Drug Abuse Patient Records regulations: The Federal rules restrict any use of the information to criminally investigate or prosecute any alcohol or drug abuse patient.[facility] HospitalIn the event this information is protected by the Federal Confidentiality of Alcohol and Drug Abuse Patient Records regulations: The Federal rules restrict any use of the information to criminally investigate or prosecute any alcohol or drug abuse patient.[facility] HospitalIn the event this information is protected by the Federal Confidentiality of Alcohol and Drug Abuse Patient Records regulations: The Federal rules restrict any use of the information to criminally investigate or prosecute any alcohol or drug abuse patient.[facility] HospitalIn the event this information is protected by the Federal Confidentiality of Alcohol and Drug Abuse Patient Records regulations: The Federal rules restrict any use of the information to criminally investigate or prosecute any alcohol or drug abuse patient.[facility] HospitalIn the event this information is protected by the Federal Confidentiality of Alcohol and Drug Abuse Patient Records regulations: The Federal rules restrict any use of the information to criminally investigate or prosecute any alcohol or drug abuse patient.[facility] HospitalIn the event this information is protected by the Federal Confidentiality of Alcohol and Drug Abuse Patient Records regulations: The Federal rules restrict any use of the information to criminally investigate or prosecute any alcohol or drug abuse patient.[facility] HospitalIn the event this information is protected by the Federal Confidentiality of Alcohol and Drug Abuse Patient Records regulations: The Federal rules restrict any use of the information to criminally investigate or prosecute any alcohol or drug abuse patient.[facility] HospitalIn the event this information is protected by the Federal Confidentiality of Alcohol and Drug Abuse Patient Records regulations: The Federal rules restrict any use of the information to criminally investigate or prosecute any alcohol or drug abuse patient.[facility] HospitalIn the event this information is protected by the Federal Confidentiality of Alcohol and Drug Abuse Patient Records regulations: The Federal rules restrict any use of the information to criminally investigate or prosecute any alcohol or drug abuse patient.[facility] HospitalIn the event this information is protected by the Federal Confidentiality of Alcohol and Drug Abuse Patient Records regulations: The Federal rules restrict any use of the information to criminally investigate or prosecute any alcohol or drug abuse patient.[facility] HospitalIn the event this information is protected by the Federal Confidentiality of Alcohol and Drug Abuse Patient Records regulations: The Federal rules restrict any use of the information to criminally investigate or prosecute any alcohol or drug abuse patient.[facility] HospitalIn the event this information is protected by the Federal Confidentiality of Alcohol and Drug Abuse Patient Records regulations: The Federal rules restrict any use of the information to criminally investigate or prosecute any alcohol or drug abuse patient.[facility] HospitalIn the event this information is protected by the Federal Confidentiality of Alcohol and Drug Abuse Patient Records regulations: The Federal rules restrict any use of the information to criminally investigate or prosecute any alcohol or drug abuse patient.[facility] HospitalIn the event this information is protected by the Federal Confidentiality of Alcohol and Drug Abuse Patient Records regulations: The Federal rules restrict any use of the information to criminally investigate or prosecute any alcohol or drug abuse patient.[facility] Care Teams (unrecognized sec tion and [...] November 29, 2023 End: November 29, 2023 Hemodialysis Patient Care Specialist Relationship Specialty Start Date End Date Colby Augustin MD PCP - General Family Medicine 11/10/20 Hemodialysis Patient Care Specialist Relationship Specialty Start Date End Date Colby Augustin MD PCP - General Family Medicine 11/10/20 Hemodialysis Patient Care Specialist Relationship Specialty Start Date End Date Colby Augustin MD PCP - General Family Medicine 11/10/20 Hemodialysis Patient Care Specialist Relationship Specialty Start Date End Date Colby Augustin MD PCP - General Family Medicine 11/10/20 Hemodialysis Patient Care Specialist Relationship Specialty Start Date End Date Colby Augustin MD PCP - General Family Medicine 11/10/20 Hemodialysis Patient Care Specialist Relationship Specialty Start Date End Date Colby Augustin MD PCP - General Family Medicine 11/10/20 Hemodialysis Patient Care Specialist Relationship Specialty Start Date End Date Colby Augustin MD PCP - General Family Medicine 11/10/20 Hemodialysis Patient Care Specialist Relationship Specialty Start Date End Date Colby Augustin MD PCP - General Family Medicine 11/10/20 Team Status: Inactive Member Role Status Dates Analia Holliday , DNP Primary Care Provider, Attending Provider Active Hemodialysis Patient Care Specialist Relationship Specialty Start Date End Date Analia Holliday, INTERNAL RECRUITER [address] [place] [phone] PCP - General Family Medicine 06/06/23 Hemodialysis Patient Care Specialist Relationship Specialty Start Date End Date Analia Holliday, INTERNAL RECRUITER [address] [place] [phone] PCP - General Family Medicine 06/06/23 Hemodialysis Patient Care Specialist Relationship Specialty Start Date End Date Analia Holliday, INTERNAL RECRUITER [address] [place] [address] PCP - General Family Medicine 06/06/23 Hemodialysis Patient Care Specialist Relationship Specialty Start Date End Date Analia Holliday, INTERNAL RECRUITER [address] [place] [phone] PCP - General Family Medicine 06/06/23 Hemodialysis Patient Care Specialist Relationship Specialty Start Date End Date Analia Holliday, INTERNAL RECRUITER [address] [place] [address] PCP - General Family Medicine 06/06/23 Hemodialysis Patient Care Specialist Relationship Specialty Start Date End Date Analia Holliday INTERNAL RECRUITER [address] [place], [phone] PCP - General Family Medicine 06/06/23 Hemodialysis Patient Care Specialist Relationship Specialty Start Date End Date Analia Holliday, INTERNAL RECRUITER [address] [place] [phone] PCP - General Family Medicine 06/06/23 Hemodialysis Patient Care Specialist Relationship Specialty Start Date End Date Analia Holliday, DIOR [address] [place] [phone] PCP - General Family Medicine 06/06/23 Hemodialysis Patient Care Specialist Relationship Specialty Start Date End Date Analia Holliday, INTERNAL RECRUITER [address] [place] [phone] PCP - General Family Medicine 06/06/23 Hemodialysis Patient Care Specialist Relationship Specialty Start Date End Date Analia Holliday, INTERNAL RECRUITER [address] [place] [phone] PCP - General Family Medicine 06/06/23 Hemodialysis Patient Care Specialist Relationship Specialty Start Date End Date Analia Holliday, INTERNAL RECRUITER [address] [email or web address] [phone] PCP - General Family Medicine 06/06/23 Hemodialysis Patient Care Specialist Relationship Specialty Start Date End Date Analia Holliday, INTERNAL RECRUITER [address] [place] [phone] PCP - General Family Medicine 06/06/23 Hemodialysis Patient Care Specialist Relationship Specialty Start Date End Date Analia Holliday INTERNAL RECRUITER [address] [place] [phone] PCP - General Family Medicine 06/06/23 Team Status: Active Member Role Status Dates Analia Holliday DNP Primary Care Provider Active Start: December 27, 2023 Dara Butler DO Attending Provider Active Sta rt: December 27, 2023 Team Status: Inactive Member Role Status Dates Ana Bolton DO Attending Provider Active Start: January 01, 2024 End: January 01, 2024 Hemodialysis Patient Care Specialist Relationship Specialty Start Date End Date Analia Holliday, INTERNAL RECRUITER [address] [place] [phone] PCP - General Family Medicine 06/06/23 Team Status: Active Member Role Status Dates Analia Dennis APRN [employer] Primary Care Provider Active Team Status: Inactive Member Role Status Dates Analia Dennis APRN [employer] Primary Care Provider, Attending Provider Active Start: March 19, 2024 End: March 19, 2024 Goals (unrecognized section and content) Goals [...] BE BASED ON THE PRIMARY CLINICAL RECORDS. [employer] provides no warranty or guarantee of the accuracy or completeness of information in this document.
[2024-03-24] MEDS: 0.9 % SODIUM CHLORIDE 1,000 ML 1000 ML IV (20:34)
[2024-03-24] MEDS: ONDANSETRON PF 4 MG/2 ML VIAL IV (20:35)
--- NOTE | 2024-03-24 20:35 | ED.GENADUL1 ---
HPI HPI - General Adult General Chief complaint: Abdominal Pain Stated complaint: NAUSEA, VOMITTING Time Seen by Provider: 03/24/24 20:18 Source: patient Mode of arrival: walk-in Limitations: no limitations History of Present Illness HPI narrative: 23-year-old female to the emergency department chief complaint of nausea vomiting and diarrhea. Symptoms started suddenly today. Unable to keep anything down. No blood in the vomit. No blood in the stool. She is otherwise at her baseline health. Came in due to concern for dehydration unable to tolerate any fluids. Took a test today at home which was negative. Related Data Home Medications ?Medication ?Instructions ?Recorded ?Confirmed hyoscyamine sulfate 0.375 mg 0.375 mg PO BID 12/27/23 03/24/24 tablet,extended release,12 hr escitalopram oxalate 5 mg tablet 5 mg PO DAILY 03/24/24 03/24/24 (Lexapro) ondansetron HCl 4 mg tablet 4 mg PO DAILY 03/24/24 03/24/24 Previous Rx's ?Medication ?Instructions ?Recorded dicyclomine 10 mg capsule 10 mg PO QID PRN abdominal pain 03/24/24 #12 caps ondansetron 4 mg disintegrating 4 mg PO Q8H PRN nausea and 03/24/24 tablet vomiting 4 days #16 tabs Allergies Allergy/AdvReac Type Severity Reaction Status Date / Time metronidazole [From Flagyl] Allergy Hives Verified 03/24/24 20:15 Opioid HPI Opioid Management Most Recent Opioid Data: Last Pain Scale 9 01/01/24 11:11 Review of Systems ROS Status of ROS 10 or more systems reviewed and unremarkable except as noted in history and below [facility] Medical History (Updated 03/24/24 @ 21:46 by Jaiden Encarnacion MD) History of IBS ?Z87.19 - Personal history of other diseases of the digestive system (ICD-10) History of endometriosis ?Z87.42 - Personal history of other diseases of the female genital tract (ICD-10) History of Clostridioides difficile colitis ?Z86.19 - Personal history of other infectious and parasitic diseases (ICD-10) Epigastric pain ?R10.13 - Epigastric pain (ICD-10) Nausea ?R11.0 - Nausea (ICD-10) Acute sinusitis due to respiratory syncytial virus (RSV) ?J01.90 - Acute sinusitis, unspecified (ICD-10) ?B97.4 - Respiratory syncytial virus as the cause of diseases classified elsewhere (ICD-10) Shoulder pain ?M25.519 - Pain in unspecified shoulder (ICD-10) Syncope ?R55 - Syncope and collapse (ICD-10) Paresthesia and pain of extremity ?R20.2 - Paresthesia of skin (ICD-10) ?M79.609 - Pain in unspecified limb (ICD-10) Paresthesia ?R20.2 - Paresthesia of skin (ICD-10) Back pain ?M54.9 - Dorsalgia, unspecified (ICD-10) Insomnia ?G47.00 - Insomnia, unspecified (ICD-10) Depression ?F32.A - Depression, unspecified (ICD-10) Anxiety ?F41.9 - Anxiety disorder, unspecified (ICD-10) COVID-19 ?U07.1 - COVID-19 (ICD-10) Pleurisy ?R09.1 - Pleurisy (ICD-10) IBS (irritable bowel syndrome) ?K58.9 - Irritable bowel syndrome without diarrhea (ICD-10) GERD (gastroesophageal reflux disease) ?K21.9 - Gastro-esophageal reflux disease without esophagitis (ICD-10) Palpitations ?R00.2 - Palpitations (ICD-10) Low vitamin D level ?R79.89 - Other specified abnormal findings of blood chemistry (ICD-10) Fatigue ?R53.83 - Other fatigue (ICD-10) Ovarian cyst ?N83.209 - Unspecified ovarian cyst, unspecified side (ICD-10) Pancreatitis ?K85.90 - Acute pancreatitis without necrosis or infection, unspecified (ICD-10) Abdominal pain ?R10.9 - Unspecified abdominal pain (ICD-10) Altered bowel function ?R19.8 - Other specified symptoms and signs involving the digestive system and abdomen (ICD-10) Diarrhea ?R19.7 - Diarrhea, unspecified (ICD-10) Abnormal uterine bleeding ?N93.9 - Abnormal uterine and vaginal bleeding, unspecified (ICD-10) Pelvic pain ?R10.2 - Pelvic and perineal pain (ICD-10) Fallopian tube disorder ?N83.9 - Noninflammatory disorder of ovary, fallopian tube and broad ligament, unspecified (ICD-10) Muscle weakness ?M62.81 - Muscle weakness (generalized) (ICD-10) Dehydration ?E86.0 - Dehydration (ICD-10) Clostridium difficile infection ?A49.8 - Other bacterial infections of unspecified site (ICD-10) 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 - Personal history of other medical treatment (ICD-10) Surgical History (Updated 01/08/23 @ 10:26 by Lynette Darden NP) History of removal of skin mole ?Z98.890 - Other specified postprocedural states (ICD-10) ?Z87.2 - Personal history of diseases of the skin and subcutaneous tissue (ICD-10) History of wisdom tooth extraction ?K08.409 - Partial loss of teeth, unspecified cause, unspecified class (ICD-10) History of esophagogastroduodenoscopy (EGD) ?Z98.890 - Other specified postprocedural states (ICD-10) History of colonoscopy ?Z98.890 - Other specified postprocedural states (ICD-10) Family History (Updated 01/08/23 @ 10:26 by Lynette Darden NP) Other Family history of hypertension Family history of prostate cancer Family history of stroke Social History Within the past year, how often did you have a drink containing alcohol: never Score interpretation: A score less than 3 is consistent with normal alcohol consumption. 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 GENERAL: Well developed, well appearing adult in no acute distress. NEURO: Alert and oriented. Moves all extremities. Face is symmetric and expressive. EYES: PERRL. No scleral icterus or conjunctival injection. No discharge. HENT: Normocephalic, atraumatic. Hearing is grossly intact. Nares grossly patent and without discharge. Mucous membranes moist. NECK: No JVD. Patient moves neck without restriction. CARDIO: Rhythm regular. Normal rate. No murmur, rub, or gallop. Pulses equal bilaterally in the upper and lower extremity. No lower extremity edema. PULM: Lungs clear to auscultation in all evans. No wheezes, rales, or rhonchi. No conversational dyspnea. No splinting, stridor, or accessory muscle use. GI/: Abdomen is soft and non-tender. Normoactive bowel sounds. EXTREMITIES: Symmetric muscle bulk. No joint swelling. No clubbing, cyanosis, or deformity. SKIN: Warm and dry. Normal turgor. No rash or lesions appreciated. PSYCH: Mood, affect, and interaction is appropriate to the setting. Constitutional Vital Signs, click to edit/add: Last Vital Signs Temp 99.3 F 03/24/24 20:15 Pulse 75 03/24/24 20:15 Resp 18 03/24/24 20:15 BP 116/66 03/24/24 20:15 Pulse Ox 100 03/24/24 20:15 O2 Del Method Room Air 03/24/24 20:15 Course Vital Signs Vital signs: Vital Signs Temperature 99.3 F 03/24/24 20:15 Pulse Rate 75 03/24/24 20:15 Respiratory Rate 18 03/24/24 20:15 Blood Pressure 116/66 03/24/24 20:15 Pulse Oximetry 100 03/24/24 20:15 Oxygen Delivery Method Room Air 03/24/24 20:15 Temperature 99.3 F 03/24/24 20:15 Pulse Rate 75 03/24/24 20:15 Respiratory Rate 18 03/24/24 20:15 Blood Pressure 116/66 03/24/24 20:15 Pulse Oximetry 100 03/24/24 20:15 Oxygen Delivery Method Room Air 03/24/24 20:15 Medical Decision Making [facility] Narrative Medical decision making narrative: 23-year-old female to the emergency department with chief complaint of nausea vomiting diarrhea. Started suddenly today. Vital stable, the patient is afebrile. Her abdominal examination is benign. Fluids, Zofran, Bentyl ordered for symptom control. Will obtain basic labs. Patient agrees with this plan. Took a test at home prior to arrival. Was negative. Declines further testing Lab work unremarkable Patient felt much improved and feels that therapy. Suspect gastroenteritis. Hyperdominant is in the community at the time of this evaluation. Bentyl and Zofran for home. Scripts were given. Return precautions were discussed. All questions were answered. The patient was discharged home. Medical Records Medical records reviewed: Yes I reviewed the patient's medical records Lab Data Lab results reviewed: Yes I reviewed the patient's lab results Labs: Lab Results 03/24/24 Range/Units 21:12 WBC 7.8 (4.0-11.0) 10^3/uL RBC 3.86 L (4.20-5.40) 10^6/uL Hgb 12.4 (12.0-16.0) g/dL Hct 36.1 (36.0-48.0) % MCV 93.5 (81.0-99.0) fL MCH 32.1 (26.7-34.0) pg MCHC 34.3 (29.9-35.2) g/dL RDW 11.7 (11.0-15.0) % Plt Count 157 (150-450) 10^3/uL MPV 10.8 (9.5-13.5) fL Neut % (Auto) 83.8 H (43.0-75.0) % Lymph % (Auto) 9.3 L (20.5-60.0) % Motley % (Auto) 5.7 (1.7-12.0) % Eos % (Auto) 0.6 L (0.9-7.0) % Baso % (Auto) 0.3 (0.2-2.0) % Neut # (Auto) 6.5 (1.4-6.5) 10^3/uL Lymph # (Auto) 0.7 L (1.2-3.8) 10^3/uL Motley # (Auto) 0.4 (0.3-0.8) 10^3/uL Eos # (Auto) 0.1 (0.0-0.7) 10^3/uL Baso # (Auto) 0.0 (0.0-0.1) 10^3/uL Abs Immat Gran (auto) 0.02 (0.00-0.03) 10^3/uL Imm/Tot Granulo (auto) 0.3 (0.0-0.5) % Sodium 137 (136-145) mmol/L Potassium 4.0 (3.5-5.1) mmol/L Chloride 105 (98-107) mmol/L Carbon Dioxide 25.8 (21.0-32.0) mmol/L Anion Gap 10.2 BUN 14.0 (7.0-18.0) mg/dL Creatinine 0.66 (0.55-1.02) mg/dL Est GFR ( Amer) >60 (>=60) Est GFR (Non-Af Amer) >60 (>=60) BUN/Creatinine Ratio 21.2 Glucose 93 (74-106) mg/dL Calcium 8.2 L (8.5-10.1) mg/dL Total Bilirubin 0.7 (0.2-1.0) mg/dL AST 16 (15-37) U/L ALT 16 (14-59) U/L Alkaline Phosphatase 52 (46-116) U/L Total Protein 6.2 L (6.4-8.2) g/dL Albumin 3.6 (3.4-5.0) g/dL Globulin 2.6 g/dL Albumin/Globulin Ratio 1.4 Lipase 19.0 (16.0-77.0) U/L Discharge Plan Discharge Stand Alone Forms: Work/School Release, Portal Instructions Chief Complaint: Abdominal Pain Clinical Impression: Nausea, vomiting and diarrhea Patient Disposition: Home, Self-Care Time of Disposition Decision: 21:46 Mode of Transportation: Private Vehicle Prescriptions / Home Meds: New ondansetron 4 mg tablet,disintegrating 4 mg PO Q8H PRN (Reason: nausea and vomiting) 4 Days Qty: 16 0RF dicyclomine 10 mg capsule 10 mg PO QID PRN (Reason: abdominal pain) Qty: 12 0RF No Action hyoscyamine sulfate 0.375 mg tablet extended release 12 hr 0.375 mg PO BID escitalopram oxalate [Lexapro] 5 mg tablet 5 mg PO DAILY ondansetron HCl 4 mg tablet 4 mg PO DAILY Print Language: Korean Instructions: Acute Nausea and Vomiting (DC) Additional Instructions: Call the office of your primary care doctor to arrange for follow-up within the above-stated timeframe. Your ED visit was focused on your acute issue and does not replace primary care. You should review your labs, imaging, and diagnoses from this ED visit with your primary care physician. There may be non-emergent/ incidental findings that need further evaluation. You should review your vital signs including blood pressure with your PCP. If you were prescribed medications you should discuss possible side-effects and drug interactions with your pharmacist. Call 911 or go to the nearest Emergency Department if you develop any new or worsening symptoms. Seek immediate medical attention if you develop: worsening abdominal pain, new or worsening nausea, new or worsening vomiting, new or worsening diarrhea, chest pain, shortness of breath, pain with urination, problems urinating, fever, chills, weakness, or any new or worsening symptoms. Referrals: ESPERANZA NOGUERA [Primary Care Provider] - 1 week Discharge Date/Time: 03/24/24 22:12
[2024-03-24 21:17] LABS: Basophils Percent Auto 0.3 % (0.2-2.0); Eosinophils Absolute Auto 0.1 10^3/uL (0.0-0.7); Eosinophils Percent Auto 0.6 % (0.9-7.0); Hematocrit 36.1 % (36.0-48.0); Hemoglobin 12.4 g/dL (12.0-16.0); Immature Granulocytes Abs Auto 0.02 10^3/uL (0.00-0.03); Immature Granulocytes Pct Auto 0.3 % (0.0-0.5); Lymphocytes Absolute Auto 0.7 10^3/uL (1.2-3.8); Lymphocytes Percent Auto 9.3 % (20.5-60.0); Mean Corpuscular HGB Conc 34.3 g/dL (29.9-35.2); Mean Corpuscular Hemoglobin 32.1 pg (26.7-34.0); Mean Corpuscular Volume 93.5 fL (81.0-99.0); Mean Platelet Volume 10.8 fL (9.5-13.5); Monocytes Absolute Auto 0.4 10^3/uL (0.3-0.8); Monocytes Percent Auto 5.7 % (1.7-12.0); Neutrophils Absolute Auto 6.5 10^3/uL (1.4-6.5); Neutrophils Percent Auto 83.8 % (43.0-75.0); Platelet Count 157 10^3/uL (150-450); Red Blood Count 3.86 10^6/uL (4.20-5.40); Red Cell Distribution Width 11.7 % (11.0-15.0); White Blood Count 7.8 10^3/uL (4.0-11.0)
[2024-03-24 21:32] LABS: Alanine Aminotransferase 16 U/L (14-59); Albumin Globulin Ratio 1.4; Albumin Level 3.6 g/dL (3.4-5.0); Alkaline Phosphatase 52 U/L (46-116); Anion Gap 10.2; Aspartate Amino Transferase 16 U/L (15-37); BUN Creatinine Ratio 21.2; Bilirubin Total 0.7 mg/dL (0.2-1.0); Calcium 8.2 mg/dL (8.5-10.1); Carbon Dioxide 25.8 mmol/L (21.0-32.0); Chloride 105 mmol/L (98-107); Estimated GFR (African America >60 (>=60); Estimated GFR (Non-African Ame >60 (>=60); Globulin 2.6 g/dL; Glucose 93 mg/dL (74-106); Sodium 137 mmol/L (136-145); Total Protein 6.2 g/dL (6.4-8.2)
[2024-03-24] MEDS: DICYCLOMINE HCL 10 MG CAPSULE 20 MG PO ×2 (21:35→22:04)
[2024-03-24] MEDS: ONDANSETRON 4 MG RAPDIS TABLET SL (22:03)
== END 2024-03-24 22:12 | disposition home or self-care (01) ==
PROVIDERS: Emergency Provider Student in an Organized Health Care Education/Training Program; PCP Family Medicine
DX: R11.2 Nausea with vomiting, unspecified (principal); R19.7 Diarrhea, unspecified
CPT/HCPCS: 36415; 80053; 83690; 85025; 96361; 96374; 99284; J2405; Q0162

== ENCOUNTER 2024-06-25 09:04 | Emergency (ER) | payer BC, SELFPAY ==
[2024-06-25 09:07] VITALS: BP 120/83; PULSE 78; TEMP 36.8; O2SAT 100; BMI 26.5
--- OUTSIDE RECORDS SUMMARY | 2024-06-25 09:25 | XMS_ITS | CCD ---
Author Organization [facility] CliniSypr Care Team Providers Care Glueline Worker Name Role Phone Arlene Negro Unavailable Jaya Parikh Unavailable SELF, REFERRED Primary Care Unavailable SELF, REFERRED Referring Unavailable ZENON HUGGINS Admitting Unavailable ZENON HUGGINS Attending Unavailable Unavailable Primary Care Provider UnavailPHANI De Paz Attending Unavailable JAYA PARIKH Referring Unavailable CELY NELSON Attending Unavailable KOBEISSY, ABDALLAH Admitting Unavailable KOBEIMACOY, ABDNEDAH Attending Unavailable ROSENDAROBB, REYGHAN Referring Unavailable KOBEISSY, ABDALLAH Attending Unavailable KOBEISSY, ABDALLAH Referring Unavailable ROSENDALE, REYGHAN Attending Unavailable ROSENDAROBB, REYGHAN Attending Unavailable Silvano Reyez Unavailable POORNIMA ., DR MATA Admitting Unavailable HEMEYER ., [...] HEMEYER ., DR MATA Consulting Unavailable Azael Ocasio Consulting Unavailable HEMEYER ., DR MATA Admteddy [...] HEMEYER ., DR MATA Primary Care Unavailable OTTUMWA, DR DARA Ledezma Consulting Unavailable MISC, DR [...] Unavailable DAVID Holliday Primary Care Provider Kaprobb, DAVID Analia Attending Provider [phone] Kaple STORE CUSTODIAN, Analia M Primary Care Provider Kaple STORE CUSTODIAN, Analia M Primary Care Provider [phone] SEEMA DAVIS Referring Unavailable KAPLE, ANALIA M Primary Care Unavailable VIKTORIA CAUSEY Referring Unavailable KAPLE, ANALIA M Primary Care Unavailable DO Ana Bolton Attending Provider [phone] Ana Bolton Admitting Unavailable Ana Bolton Attending Unavailable Kaple, Analia Admitting Unavailable Kaple, Analia Primary Care Unavailable Kaprobb, Analia Attending Unavailable Jose Luis Hernandez Attending [...] Primary Care Unavailable DARA BUTLER Referring Unavailable CHARLI COLBY M Primary Care Unavailable DARA BUTLER Referring Unavailable COLBY AUGUSTIN M Primary Care Unavailable Colby Augustin MD Primary Care Provider [phone] Keshia Restrepo MD Primary Care Provider Dara Butler Jr Referring Unavailable KAPLE, ANALIA M Primary Care Unavailable Dara Butler Jr Attending Unavailable KAPLE, ANALIA M Primary Care Unavailable KAPLE, ANALIA M Primary Care Unavailable BOLA BRADEN Attending Unavailable KAPLE, ANALIA M Primary Care Unavailable ZENON PRETTY Attending Unavailable KAPLE, ANALIA M Primary Care Unavailable ZENON PRETTY Attending Unavailable KAPLE, ANALIA M Primary Care Unavailable KAPLE, ANALIA M Primary Care Unavailable SINAN, KHALED Referring Unavailable SEEMA DAVIS Attending Unavailable KAPLE, ANALIA M Primary Care Unavailable SEEMA DAVIS Referring Unavailable SEDRICK RUSHING Attending Unavailable ANALIA HOLLIDAY Primary Care Unavailable SEEMA DAVIS Referring Unavailable SEDRICK RUSHING Referring Unavailable ANALIA HOLLIDAY Primary Care Unavailable ANALIA HOLLIDAY Primary Care Unavailable ANALIA HOLLIDAY Referring Unavailable ARIELLA MCCOY Attending Unavailable Allergies Allergy Classification Reported Allergen(s) Allergy Type Date of Onset Reaction(s) Facility Nitroimidazoles (antibiotic) (1 source) metroNIDAZOLE Drug Allergy 1 Mental Status Change, Diarrhea, GI Upset, Hives, Other: See Comments, Rash, Shortness of Breath, Unknown, Vomiting [facility] (20 sources) metroNIDAZOLE; Translations: [METRONIDAZOLE] Drug Allergy 1 Mental Status Change, Diarrhea, GI Upset, Hives, Other: See Comments, Rash, Shortness of Breath, Unknown, Vomiting [facility] Repository (1 source) metroNIDAZOLE Drug Allergy 3 [facility] Repository (8 sources) Vancomycin Drug Allergy Unknown [facility] Other (1 source) Vancomycin Drug Allergy 4 [facility] Repository Medications Current Medications Medication Drug Class(es) Dates Sig (Normalized) Sig (Original) dicyclomine hydrochloride 20 mg oral tablet (20 sources) Anticholinergic Start: 03-14-2024 End: 06-12-2024 take 1 tablet by mouth twice daily dicyclomine (BENTYL) 20 mg tablet Take 1 tablet by mouth two times a day. 60 tablet 2 03/14/2024 06/12/2024 Active Start: 11-29-2023 take 1 capsule by [facility] three times daily as needed Dicyclomine Active [...] Escitalopram Oxalate Active 10 MG PO Daily 90 90 March 19, 2024 1:44pm Start: 01-16-2024 End: 03-19-2024 take 5 mg by mouth once daily Escitalopram Oxalate Dis continued 5 MG PO Daily 90 90 January 16, 2024 12:00am March 19, [...] Take 5 mg by mouth once daily. Active take 1 tablet by joel th [...] day PT PICKS THE SCRIPT TODAY Active gabapentin 100 mg oral capsule (4 sources) Anti-epileptic Agent Start: 04-30-2024 End: 04-23-2025 take 1 tablet by mouth once daily at bedtime, then take 1 tablet by mouth twice daily, then take 2 tablets by mouth twice daily gabapentin (NEURONTIN) 100 mg capsule Indications: Right sided abdominal pain , Neuralgia and neuritis take 1 tab PO qHS x 3 days, then take 1 tab PO BID x 3 days, then take 2 tabs PO BID if tolerated. 120 capsule 5 04/30/2024 04/23/2025 Active ondansetron 4 mg oral tablet (20 sources) Serotonin-3 Receptor Antagonist Start: 09-01-2022 ondansetron (ZOFRAN) 4 mg tablet Take 4 mg by mouth as needed. 09/01/2022 Active Comment on above: Take 4 mg by mouth a s needed. predniSONE 20 mg oral tablet (9 sources) [...] mealtime Prednisone Discontinued 50 MG PO Daily 5 October 31, 2020 12:00am November 29, 2023 11:18am administer with food or milk Comment on above: Take 1 tablet by joel th once daily for 14 days. Take 1 tablet by joel th once daily for 10 days. Completed/Discontinued Medications Medication Drug Class(es) Dates Sig (Normalized) Sig (Original) amitriptyline hydrochloride 25 mg oral tablet (20 sources) Tricyclic Antidepressant Start: 12-28-2023 End: 04-30-2024 take 1 tablet by mouth once daily at bedtime amitriptyline (ELAVIL) 25 mg tablet take 1 tablet by mouth everyday at bedtime 90 tablet 1 03/25/2024 04/30/2024 Discontinued Start: 05-22-2023 End: 11-15-2023 take 1 tablet by mouth once daily at bedtime amitriptyline (ELAVIL) 25 mg tablet Take 1 tablet by mouth daily at bedtime. 30 tablet 0 05/22/2023 11/15/2023 Discontinued (Discontinued by Patient) Comment on above: Take 1 tablet by joel th daily at bedtime. amylase 020941 unt / lipase [id number] unt / protease 23009 unt delayed release oral capsule (16 sources) Start: 06-06-2023 End: 10-22-2023 take 2 capsules by mouth twice daily at mealtime qydjok-ciwabtdj-mxzfa se (CREON) 24,000-76,000 -120,000 unit delayed release capsule Take 2 capsules by mouth two times a day with meals. 120 capsule 0 06/06/2023 10/22/2023 Discontinued Start: 02-06-2023 End: 05-22-2023 take 1 capsule by mouth three times daily at mealtime ohjgmk-fqhyjqyb-zfjlmfa (ZENPEP) 40,000-126,000- 168,000 unit delayed release capsule Indications: Generalized abdominal pain , Chronic pancreatitis, unspecified pancreatitis type (HCC) , Intestinal malabsorption, unspecified type Take 1 capsule by mouth three times daily with meals. 90 capsule 2 02/06/2023 05/22/2023 Discontinued Comment on above: Take 1 capsule by mo ut three times daily with meals. Take 2 capsules by out two times a day with meals. chlordiazePOXIDE [...] on above: Take 1 capsule by mo uth three times daily with meals. TAKE 1 CAPSULE BY MO UTH THREE TIMES DAILY WITH MEALS cholecalciferol 0.05 mg oral capsule (4 sources) Vitamin D Start: 2023 End: 2023 take 1 capsule by mouth once daily Cholecalciferol (Vitamin D3) Discontinued 2000 UNIT PO Daily November 29, 2023 12:00am March 19, 2024 1:34pm [employer] capsule Orally Once a day; Note: Source Status: Start; Refills: 4; Provider: Miya Moise Start: 06-11-2023 take 1 capsule by tx ut every twenty-four hours Vitamin D3 50 MCG (2000 UT) 1 capsule Orally Once a day [...] painful area for up to 12 hrs pantoprazole 40 mg delayed release oral tablet (10 sources) Proton Pump Inhibitor Start: 01-22-20 End: 04-30-20 24 take 1 tablet by mouth once daily pantoprazole DR (PROTONIX) 40 mg tablet TAKE 1 TABLET BY MOUTH EVERY DAY 90 tablet 1 01/22/2024 04/30/2024 Discontinued Start: 12-28-2023 take 1 tablet by joel th once daily pantoprazole DR (PROTONIX) 40 mg tablet Take 1 tablet by mouth once daily. 30 tablet 2 12/28/2023 Active sucralfate 1000 mg oral tablet (2 sources) Aluminum Complex Start: 12-24-2023 End: 12-28-2023 take 1 tablet by mouth three times daily sucralfate (CARAFATE) 1 gram tablet Take 1 tablet by mouth three times a day. 90 tablet 2 12/24/2023 12/28/2023 Discontinued Problems Active Problems Problem Classification Problem Date Documented Da te Episodic/Chronic Anxiety disorders (9 sources) Generalized anxiety disorder; Translations: [Generalized anxiety disorder] Chronic Aortic; peripheral; and visceral artery aneurysms (1 source) Carotid artery aneurysm; Translations: [Aneurysm of carotid artery] 12-02-2020 Chronic Biliary tract disease (1 source) Cholecystitis, unspecified; Translations: [Cholecystitis] Onset: Episodic Cardiac dysrhythmias (1 source) Supraventricular tachycardia; [...] other than malignant neoplasm] 12-05-2023 Episodic Other circulatory disease (2 sources) Celiac artery compression syndrome; 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 Other connective tissue disease (4 sources) Pain in upper limb; Translations: [Pain in arm, unspecified] 10-31-2020 Episodic Other connective tissue disease (2 sources) Neuropathy; Translations: [Neuralgia and neuritis, unspecified] 04-30-2024 Episodic Other diseases of kidney and ureters [...] type] Onset: 3 Chronic Other gastrointestinal disorders (4 sources) Diarrhea; Translations: [Diarrhea, unspecified] Episodic Other [...] abnormal findings] Onset: 3 Unclassified (1 source) APPOINTMENT CANCELLED 03-26-2024 Unclassified (1 source) Other supraventricular tachycardia (HCC); Translations: [Other supraventricular tachycardia (HCC)] Onset: Past or Other Problems Problem Classification Problem Date Documented Da te Episodic/Chronic Abdominal pain (20 sources) Right upper quadrant pain; Translations: [Right upper quadrant pain] Onset: 10-18-2022 Episodic Allergic reactions (20 sources) Urticaria; Translations: [Urticaria, unspecified] Onset: 12-09-2021 12-09-2021 Episodic Anxiety disorders (20 sources) Organic anxiety disorder; 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] Onset: 11-15-2023 11-15-2023 Episodic Bacterial infection; unspecified site (2 sources) Other bacterial infections of unspecified site; Translations: [Other bacterial infections of unspecified site] Onset: 08-02-2022 Episodic Cardiac dysrhythmias (20 sources) Palpitations; Translations: [Palpitations] Onset: 11-07-2023 10-22-2023 [...] 12-09-2021 12-09-2021 Episodic Other infections; including parasitic (20 sources) Recurrent infectious disease; Translations: [Unspecified infectious [...] Test Name Value Interpretation Reference Range Facility [facility] 06-23-2024 [facility] Telephone (INMAVN) ----- ROSA ALONZO ([id number]) 2000 F Date Time Provider Department 06/23/24 SANTIAGO HUFFMAN INAZYOU During your visit today, we recorded the following information about you: Bonny Joyner 06/23/2024 10:58 AM Addendum PT called asking to cancel their procedure scheduled on 07/04/2024. Please review and advise. Thank you! Shu Wilkins 06/23/2024 4:54 PM Signed Case message sent to surgery pool to cancel with Dr. Huffman 07/04 per patient request. Allergies As of Date: 06/23/2024 Noted Allergy Reaction METRONIDAZOLE 09/07/2020 1 - Mental Status Change 6 - Diarrhea 8 - GI Upset 4 - Hives 14 - Other: See Comments 2 - Rash 12 - Shortness of Breath 16 - Unknown 11 - Vomiting Date Reviewed: 04/30/2024 Reviewed by: Anabel Godwin LPN - Fully Assessed Reason for Visit: Appointment [186] Prescriptions as of 06/23/2024 - gabapentin (NEURONTIN) 100 mg capsule take 1 tab PO qHS x 3 days, then take 1 tab PO BID x 3 days, then take 2 tabs PO BID if tolerated. - escitalopram oxalate (LEXAPRO) 10 mg tablet Take 5 mg by mouth once daily. - ondansetron (ZOFRAN) 4 mg tablet Take 4 mg by mouth as needed. Problem List As Of Date 06/23/2024 Noted Resolved Cervicalgia [M54.2] 12/09/2021 Chronic pain [...] 11/15/2023 Palpitations [R00.2] 11/15/2023 Encounter Status:Closed by BONNY JOYNER on 06/23/24 [facility] Christine 05-14-2024 [facility] Telephone (ORLORA) ----- ROSA ALONZO ([id number]) 2000 F Date Time Provider Department 05/14/24 SANTIAGO HUFFMAN During your visit today, we recorded the following information about you: Shu Wilkins 05/14/2024 1:48 PM Signed diagnostic celiac plexus blockade ROSA ALONZO [id number] BHARATHI 07/04 -THINNERS -DM Patient was made aware that the [facility] will call the day prior to scheduled procedure between the hours of 12 and 4 pm to advise patient of arrival time the day of procedure. Patient was advised that they will require a hazmat cdl a driver on the day of their procedure, and procedure will be cancelled if they arrive without a responsible adult to transport them home from the procedure. Patient advised that all medication management instructions prior to procedure will need addressed by clinical staff. Patient expresses understanding with no further questions or concerns at this time. 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 - dicyclomine (BENTYL) 20 mg tablet Take 1 tablet by mouth two times a day. - escitalopram oxalate (LEXAPRO) 10 mg tablet Take 5 mg by mouth once daily. - ondansetron (ZOFRAN) 4 mg tablet Take 4 mg by mouth as needed. Problem List As Of Date 05/14/2024 Noted Resolved Cervicalgia [M54.2] 12/09/2021 Chronic pain [...] 11/15/2023 Palpitations [R00.2] 11/15/2023 Encounter Status:Closed by SHU WILKINS on 05/14/24 [facility] Telephone (ORLOR[place]) ----- ROSA ALONZO ([id number]) 2000 F Date Time Provider Department 05/14/24 JAY THOMPSON During your visit today, we recorded the following information about you: Shu Wilkins 05/14/2024 1:36 PM Signed OPENED IN ERROR Allergies As of Date: 05/14/2024 Noted Allergy Reaction METRONIDAZOLE 09/07/2020 1 - Mental Status Change 6 - Diarrhea 8 - GI Upset 4 - Hives 14 - Other: See Comments 2 - Rash 12 - Shortness of Breath 16 - Unknown 11 - Vomiting Date Reviewed: 04/30/2024 Reviewed by: Anabel Godwin LPN - Fully Assessed Reason for Visit: Schedule Injection [3498] Prescriptions as of 05/14/2024 - gabapentin (NEURONTIN) 100 mg capsule take 1 tab PO qHS x 3 days, then take 1 tab PO BID x 3 days, then take 2 tabs PO BID if tolerated. - dicyclomine (BENTYL) 20 mg tablet Take 1 tablet by mouth two times a day. - escitalopram oxalate (LEXAPRO) 10 mg tablet Take 5 mg by mouth once daily. - ondansetron (ZOFRAN) 4 mg tablet Take 4 mg by mouth as needed. Problem List As Of Date 05/14/2024 Noted Resolved Cervicalgia [M54.2] 12/09/2021 Chronic pain [...] 11/15/2023 Palpitations [R00.2] 11/15/2023 Encounter Status:Closed by SHU WILKINS on 05/14/24 [facility] CNOVon 04-30-2024 [facility] Office Visit ([facility] ) ----- ROSA ALONZO ([id number]) 2000 F Date Time Provider Department 04/30/24 11:00 AM ZENON PRETTY [facility] During your visit today, we recorded the following information about you: Pulse Respiration Blood pressure Weight 86/minute 18/minute 108/74 49.9 kg Height 1.626 m Zenon Pretty MD 05/13/2024 6:15 PM Addendum Referring Or Consulting Physician: CHIEF COMPLAINT: pain in my abdomen and lower to mid back pain HPI: This is a 23 year old female here for evaluation of pain that began 2 years ago following no particular inciting event. At this point, the pain is located in the areas detailed above (see cc). The patient describes the pain as aching and is a 4/10 in severity. It is intermittent. The pain is exacerbated by eating and activity. The pain is mitigated by not eating. The patient is currently taking the following medications for pain: nothing The patient previously has taken the following medications for pain: motrin and tylenol Symptoms interfere with physical activity, work, sexual relations, walking, sleeping, sitting, bathing, driving, cooking, household cleaning, reaching for shelves, lifting, and social activities. The patient denies denies red flags. In the last 6 months, Physical Therapy/Home Exercise Completed?: No Relevant [place] records were reviewed by physicianyes Opioid Agreement: No Receiving Disability Income: Yes Last Date/Time Patient had Opioid Medication: No Previous Xrays?: Yes ----- ----- Is the patient receiving analgesia/pain relief from the current medications? (No) Has the current medication improved activities such as walking or standing? (No) Have the current medications been associated with any adverse events? (No) Illicit drug use? (No) ----- ----- Patient denies loss of bowel or bladder control, unintentional weight loss, h/o malignancy, fevers/chills/night sweats. PAST MEDICAL HISTORY Diagnosis Date Pancreatitis PAST SURGICAL HISTORY Procedure Laterality Date COLONOSCOPY EGD ENDOMETRIAL WASHINGS laproscopicaly LAPAROSCOPIC CHOLECYSTECTOMY 11/21/2023 Social History Tobacco Use Smoking status: Never Smokeless tobacco: Never Vaping Use Vaping status: Never Used Substance Use Topics Alcohol use: Not Currently Comment: socially- rare Drug use: Not Currently Types: Marijuana Comment: rare edible FH: Patient denies a family history of the current chief complaint. ALLERGIES Allergen Reactions Metronidazole Mental Status Change, Diarrhea, GI Upset, Hives, Other: See Comments, Rash, Shortness of Breath, Unknown, Vomiting Current Outpatient Medications Medication Sig dicyclomine (BENTYL) 20 mg tablet Take 1 tablet by mouth two times a day. escitalopram oxalate (LEXAPRO) 10 mg tablet Take 5 mg by mouth once daily. ondansetron (ZOFRAN) 4 mg tablet Take 4 mg by mouth as needed. amitriptyline (ELAVIL) 25 mg tablet take 1 tablet by mouth everyday at bedtime (Patient not taking: Reported on 04/30/2024) pantoprazole DR (PROTONIX) 40 mg tablet TAKE 1 TABLET BY MOUTH EVERY DAY (Patient not taking: Reported on 04/30/2024) No current facility-administered medications for this visit. Questionnaires: Patient Entered Questionnaires PROMIS Score Percentiles 12/07/2022 11/08/2023 02/21/2024 PROMIS Global Health Scale Physical Health Percentile 15 15 7 Mental Health Percentile 26* 34 26* 12/07/2022 03/19/2024 04/29/2024 Physical Health Physical Function Percentile 27* 27* 34 Pain Interference Percentile 16* 27* 27* Percentiles provide an indication of how the patient's score ranks in relation to the general population. Higher percentile rankings indicate better function/quality of life. 50th percentile is the average of the general population and indicates half of respondents had a worse score. > 31st percentile is within normal limits or better * < 31st percentile is at least ? SD worse than population, which may be clinically relevant < 16th percentile is at least 1 SD worse than population and warrants attention Depression Screenin11/12/2020 PHQ-9 Score 5 11/12/2020 PHQ-9 Self Harm Question 9 Not at all PHQ-9 Self-Harm (Item 9) response options: 0 Not at all 1 Several days 2 More than half the days 3 Nearly every day PHQ-9 Levels: 0-4 Minimal depression 5-9 Mild depression 10-14 Moderate depression 15-19 Moderately severe depression 20-27 Severe depression PHQ-9 Score 11/12/2020 5 (0-4) minimal depression, (5-9) mild depression, (10-14) moderate depression, (15-19) moderately severe depression, (20-27) severe depression No data to display No d (more content not included)... [facility] CNPNon 04-24-2024 CNPN Telephone (GASTNO) ----- ROSA ALONZO ([id number]) 2000 F Date Time Provider Department 04/24/24 ISBAELLE MENON During your visit today, we recorded the following information about you: Gisela Ponce RN 04/24/2024 3:00 PM Signed Pt of Dr. Butler. Pt is scheduled with Dr. Menon for f/u OV 05/07/2024 (made on 12/12/2023). No need for f/u OV with Dr. Menon. Continue f/u with Dr. Butlre as well as Dr. Ambriz (gen surg ). Attempted to call pt, no answer. Left detailed voice msg that OV with be cancelled. Instructed to call back with any questions. Gisela Ponce RN Allergies As of Date: 04/24/2024 Noted Allergy Reaction METRONIDAZOLE 09/07/2020 1 - Mental Status Change 6 - Diarrhea 8 - GI Upset 4 - Hives 14 - Other: See Comments 2 - Rash 12 - Shortness of Breath 16 - Unknown 11 - Vomiting Date Reviewed: 02/26/2024 Reviewed by: Eva Gray MA - Fully Assessed Reason for Visit: Appointment [186] Cmt: No need for OV with Dr. Menon Prescriptions as of 04/24/2024 - amitriptyline (ELAVIL) 25 mg tablet take 1 tablet by mouth everyday at bedtime - dicyclomine (BENTYL) 20 mg tablet Take 1 tablet by mouth two times a day. - pantoprazole DR (PROTONIX) 40 mg tablet TAKE 1 TABLET BY MOUTH EVERY DAY - escitalopram oxalate (LEXAPRO) 10 mg tablet Take 5 mg by mouth once daily. - ondansetron (ZOFRAN) 4 mg tablet Take 4 mg by mouth as needed. Problem List As Of Date 04/24/2024 Noted Resolved Cervicalgia [M54.2] 12/09/2021 Chronic pain [...] 11/15/2023 Palpitations [R00.2] 11/15/2023 Encounter Status:Closed by GISELA PONCE on 04/24/24 [facility] CNOVon 03-26-2024 CNOV Office Visit ([facility] ) ----- ROSA ALONZO ([id number]) 2000 F Date Time Provider Department 03/26/24 11:00 AM ZENON PRETTY [facility] During your visit today, we recorded the following information about you: Pulse Respiration Blood pressure Weight 81/minute 16/minute 110/67 49.9 kg Height 1.626 m Zenon Pretty MD 03/26/2024 12:27 PM Signed power outage in building appt rescheduled Zenon Pretty MD Allergies As of Date: 03/26/2024 Noted Allergy Reaction METRONIDAZOLE 09/07/2020 1 - Mental Status Change 6 - Diarrhea 8 - GI Upset 4 - Hives 14 - Other: See Comments 2 - Rash 12 - Shortness of Breath 16 - Unknown 11 - Vomiting Date Reviewed: 02/26/2024 Reviewed by: Eva Gray MA - Fully Assessed Reason for Visit: Back Pain [12] Primary Visit Diagnosis:APPOINTMENT CANCELLED Prescriptions as of 03/26/2024 - amitriptyline (ELAVIL) 25 mg tablet take 1 tablet by mouth everyday at bedtime - dicyclomine (BENTYL) 20 mg tablet Take 1 tablet by mouth two times a day. - pantoprazole DR (PROTONIX) 40 mg tablet TAKE 1 TABLET BY MOUTH EVERY DAY - escitalopram oxalate (LEXAPRO) 10 mg tablet Take 5 mg by mouth once daily. - ondansetron (ZOFRAN) 4 mg tablet Take 4 mg by mouth as needed. Problem List As Of Date 03/26/2024 Noted Resolved Cervicalgia [M54.2] 12/09/2021 Chronic pain [...] 11/15/2023 Palpitations [R00.2] 11/15/2023 Encounter Status:Closed by ZENON PRETTY on 03/26/24 [facility] No Panel Informationon 03-16 [facility] C diff Tox gens Stl Ql RUCHI+p robeon 03-13-2024 C. difficile toxin genes RUCHI+probe Ql (Stl) Negative Normal Negative for C. difficile toxin by PCR [facility] Comment on above: Order Comment: Speci men Type: STOOL SPECIMEN Ordering Facility: [facility] Address: [address] [place] [address] Performed By: #### [id number] #### [facility] CLIA [id number] [address] [place] [address] [place] [address] [place] C. DIFFICILE PCRon C. difficile toxin genes RUCHI+probe Ql (Stl) Negative Negative for C. difficile toxin by PCR [facility] C. difficile toxin genes RUCHI +probe Ql (Stl)on 03-13-2024 Interpretation and review of laboratory results Normal [facility] CNOVon 02-26-2024 CNOV Office Visit (GGENMN ) ----- ROSA ALONZO ([id number]) 2000 F Date Time Provider Department 02/26/24 3:30 PM BOLA RBADEN GGENMN During your visit today, we recorded [...] date: COLONOSCOPY (more content not included)... Normal [facility] Gastrointestinal tract up per Views W barium contrast Aime 02-11-2024 IMPRESSION: Mild gastroesophageal reflux and mild esophageal dysmotility. Otherwise, unremarkable upper GI series. Staff Counselor: FRANCISCO Transcribe Date/Time: Feb 11 2024 11:34A Dictated by : ANJALI HALEY MD This examination was interpreted and the report reviewed and electronically signed by: ANJALI HALEY MD on Feb 11 2024 4:03PM [facility] RAD[facility] * * *Final Report* * * [...] somewhat limited assessment of the gastric cardia/fundus. [facility] Provider, Cc Imagin g [place] - 02/11/2024 * * *Final Report* * [...] esophageal dysmotility. Otherwise, unremarkable upper GI series. Staff Counselor: PSCB Transcribe Date/Time: Feb 11 2024 11:34A Dictated by : ANJALI HALEY MD This examination was interpreted and the report reviewed and electronically signed by: ANJALI HALEY MD on Feb 11 2024 4:03PM EST [facility] Radiology Study observation (narrative) [facility] RF Gastrointestinal tract up per Views W barium contrast POOrdered By: Ccf Provider on 02-11-2024 [facility] XR UPPER GI SINGLE CONTRASTo n 02-11-2024 [...] esophageal dysmotility. Otherwise, unremarkable upper GI series. Staff Counselor: FRANCISCO Transcribe Date/Time: Feb 11 2024 11:34A Dictated by : ANJALI HALEY MD This examination was interpreted and the report reviewed and electronically signed by: ANJALI HALEY MD on Feb 11 2024 4:03PM EST [id number] [facility] GASTRIC EMPTYING SOLIDon 01-30-2024 NM GASTRIC EMPTYING SOLID * * *Final Report* * * DATE OF EXAM: Jan 30 2024 1:51PM [facility] GASTRIC EMPTYING SOLID / PROCEDURE REASON: multiple [...] which lowers the sensitivity of the study. Staff Counselor: [employer] Transcribe Date/Time: Jan 30 2024 2:09P Dictated by : JOSELUIS MORA MD This examination was interpreted and the report reviewed and electronically signed by: JOSELUIS MORA MD on Jan 30 2024 2:10PM EST [id number] [facility] Stomach Views for gastric emptying solid phase W radionuclide Aime 01-30-2024 IMPRESSION: Normal rate of gastric emptying of a solid meal. However patient consumed less than the standard meal, which lowers the sensitivity of the study. Staff Counselor: [facility] Transcribe Date/Time: Jan 30 2024 2:09P Dictated by : JOSELUIS MORA MD This examination was interpreted and the report reviewed and electronically signed by: JOSELUIS MORA MD on Jan 30 2024 2:10PM EST [facility] * * *Final Report* * * DATE OF EXAM: Jan 30 2024 1:51PM N 0017 - NM GASTRIC EMPTYING SOLID / [...] retention at 4 hours (normal range, 0-10%). [facility] Provider, Letty Best - 01/30/2024 * * *Final Report* * * DATE OF EXAM: Jan 30 2024 1:51PM N 0017 - NM GASTRIC EMPTYING SOLID / [...] which lowers the sensitivity of the study. Staff Counselor: FRANCISCO Transcribe Date/Time: Jan 30 2024 2:09P Dictated by : JOSELUIS MORA MD This examination was interpreted and the report reviewed and electronically signed by: JOSELUIS MORA MD on Jan 30 2024 2:10PM EST [facility] Radiology Study observation (narrative) [facility] NM Stomach Views for gastric emptying solid phase W radionuclide POOrdered By: Ccf Provider on 01-30-2024 [facility] CNPNon 01-29-2024 CNPN Telephone (MODEST[place]) ----- ROSA AOLNZO ([id number]) 2000 F Date Time Provider Department 01/29/24 EVELIA HARP During your visit today, we recorded the [...] Fully Assessed Reason for Visit: Radiology NM [2709] Prescriptions as of 01/29/2024 - pantoprazole DR [...] Encounter Status:Closed by EVELIA HARP on 01/29/24 [facility] 01-01-2024 L Specimen: [id number] Received: 01/02/24 Status: TRUDY Mosley Num: [id number] Spec Type: Surgical Subm Dr: Ana Bolton DO Tissues: A Appendix - Other than Incidental (APPENDIX) Procedures: HE/2, Gross/Micro L3 Age/ Patient Sex Location Account Attending Physician Rosa Alonzo 23/F LABELL [id number] Ana Bolton DO SPEC NUM: [id number] RECD: 01/02/24 [facility] NUM: [id number] RAQUEL: 01/01/24-[address]: Ana Bolton DO ENTERED: 01/02/[address] [facility] DR: Verena Bettencourt SPEC TYPE: Surgical DEPT: [...] masses or areas of perforation are identified. [employer] Assistant sections are submitted in A1 (base and midportion)?A2 (entire distal tip). CPT Codes 05186 Specimen: [id number] Received: 01/02/24 Status: TRUDY Mosley Num: [id number] Spec Type: Surgical Subm Dr: Ana Bolton,DO Tissues: A Appendix - Other than Incidental (APPENDIX) Procedures: HE/2, Gross/Micro L3 Patient: Shivam Alonzocresencio Watkins [id number] (Continued) Signed (signature on file) Sourav Cabello MD 01/03/24 1808 Normal [facility] CNOVon 12-28-2023 CNOV Office Visit ([facility] ) ----- ROAS ALONZO Roland ([id number]) 2000 F Date Time Provider Department 12/28/23 3:00 PM DARA BUTLER JR [facility] During your visit today, we recorded the following information about you: Dara Butler Jr., 12/28/2023 3:30 PM Signed No chief complaint on file. HPI: Rosa Watkins [place], 23 year old female, followup for upper [...] an issue, start amitriptyline. Consider referral to [facility] if symptoms fail to improve. Although [...] notes per Dr. Butler as follows Rosa Alonoz, 22 year old female, for followup. She [...] last colonoscopy was 8 months ago in [place]. Start amitriptyline Keep appt with Dr. Menon [...] divisum. 12/01/22 HIDA scan was done at [facility]: Normal study EF 69% US: 10/31/22: (care everywhere) Liver normal Gallbaldder appears normal with no stones or sludge. No gallblad (more content not included)... Normal [facility] Amylase SerPl-cCncon 024 Amylase [Catalytic activity/Vol] 44 U/L Normal 30-104 [facility] Comment on above: Order Comment: Speci men Type: BLOOD SPECIMEN Ordering Facility: [facility] Address: [address] [place] [address] Performed By: #### 1 798-8, 1987-11, 3039-09 #### [facility] CLIA [id number] [address] [place], [place] [address] [place] [address] [place] Basophils Auto (Bld) [#/Vol] on 12-27-2023 Basophils (Bld) [#/Vol] 0.04 10*3/uL <0.11 [facility] Basophils/100 WBC Auto (Bld) on 12-27-2023 Basophils/100 WBC (Bld) 0.8 % [facility] Blood manual differential co mment interpretation narrativeon 12-27-2023 Manual differential comment Ganga (Bld) [Interp] Auto [facility] CBC W Auto Differential pane l (Bld)on 12-27-2023 Basophils (Bld) [#/Vol] 0.04 10*3/uL Normal <0.11 [facility] Comment on above: Order Comment: Speci men Type: BLOOD SPECIMENOrdering Facility: [facility] Address: [address] [place] [address] Performed By: #### 5 7021-8 ####[facility] [id number] [place] [address] Basophils/100 WBC (Bld) 0.8 % Normal [facility] Comment on above: Order Comment: Speci men Type: BLOOD SPECIMENOrdering Facility: [facility] Address: [address] [place] [address] Performed By: #### 5 7021-8 ####[facility]CLIA [id number] [place] [address] Differential cell count method Nom (Bld) Auto Normal [facility] Comment on above: Order Comment: Speci men Type: BLOOD SPECIMENOrdering Facility: [facility] Address: [address] [place] [address] Performed By: #### 5 7021-8 ####[facility]CLIA [id number] [place] [address] Eosinophils (Bld) [#/Vol] 0.22 10*3/uL Normal <0.46 [facility] Comment on above: Order Comment: Speci men Type: BLOOD SPECIMENOrdering Facility: [facility] Address: [address] [place] [address] Performed By: #### 5 7021-8 ####[facility]CLIA [id number] [place] [address] Eosinophils/100 WBC (Bld) 4.3 % Normal [facility] Comment on above: Order Comment: Speci men Type: BLOOD SPECIMENOrdering Facility: [facility] Address: [address] [place] [address] Performed By: #### 5 7021-8 ####[facility]CLIA [id number] [place] [address] Erythrocyte distribution width (RBC) [Ratio] 11.6 % Normal 11.5-15.0 [facility] Comment on above: Order Comment: Speci men Type: BLOOD SPECIMENOrdering Facility: [facility] Address: [address] [place] [address] Performed By: #### 5 7021-8 ####[facility]CLIA [id number] [place] [address] Hematocrit (Bld) [Volume fraction] 41.5 % Normal 36.0-46.0 [facility] Comment on above: Order Comment: Speci men Type: BLOOD SPECIMENOrdering Facility: [facility] Address: [address] [place] [address] Performed By: #### 5 7021-8 ####[facility]CLIA [id number] [place] [address] Hemoglobin (Bld) [Mass/Vol] 14.1 g/dL Normal 11.5-15.5 [facility] Comment on above: Order Comment: Speci men Type: BLOOD SPECIMENOrdering Facility: [facility] Address: [address] [place] [address] Performed By: #### 5 7021-8 ####[facility]CLIA [id number] [place] [address] Immature granulocytes (Bld) [#/Vol] 10*3/uL Normal <0.10 [facility] Comment on above: Order Comment: Speci men Type: BLOOD SPECIMENOrdering Facility: [facility] Address: [address] [place] [address] Performed By: #### 5 7021-8 ####[facility]IA [id number] [place] [address] Immature granulocytes/100 WBC (Bld) 0.2 % Normal [facility] Comment on above: Order Comment: Speci men Type: BLOOD SPECIMENOrdering Facility: [facility] Address: [address] [place] [address] Performed By: #### 5 7021-8 ####[facility]CLIA [id number] [place] [address] Lymphocytes (Bld) [#/Vol] 2.06 10*3/uL Normal 1.00-4.00 [facility] Comment on above: Order Comment: Speci men Type: BLOOD SPECIMENOrdering Facility: [facility] Address: [address] [place] [address] Performed By: #### 5 7021-8 ####[facility]CLIA [id number] [place] [address] Lymphocytes/100 WBC (Bld) 39.8 % Normal [facility] Comment on above: Order Comment: Speci men Type: BLOOD SPECIMENOrdering Facility: [facility] Address: [address] [place] [address] Performed By: #### 5 7021-8 ####[facility]CLIA [id number] [place] [address] MCH (RBC) [Entitic mass] 31.5 pg Normal 26.0-34.0 [facility] Comment on above: Order Comment: Speci men Type: BLOOD SPECIMENOrdering Facility: [facility] Address: [address] [place] [address] Performed By: #### 5 7021-8 ####[facility]CLIA [id number] [place] [address] MCHC (RBC) [Mass/Vol] 34.0 g/dL Normal 30.5-36.0 [facility] Comment on above: Order Comment: Speci men Type: BLOOD SPECIMENOrdering Facility: [facility] Address: [address] [place] [address] Performed By: #### 5 7021-8 ####[facility]CLIA [id number] [place] [address] MCV (RBC) [Entitic vol] 92.6 fL Normal 80.0-100.0 [facility] Comment on above: Order Comment: Speci men Type: BLOOD SPECIMENOrdering Facility: [facility] Address: [address] [place] [address] Performed By: #### 5 7021-8 ####[facility]CLIA [id number] [place] [address] Monocytes (Bld) [#/Vol] 0.42 10*3/uL Normal <0.87 [facility] Comment on above: Order Comment: Speci men Type: BLOOD SPECIMENOrdering Facility: [facility] Address: [address] [place] [address] Performed By: #### 5 7021-8 ####[facility]CLIA [id number] [place] [address] Monocytes/100 WBC (Bld) 8.1 % Normal [facility] Comment on above: Order Comment: Speci men Type: BLOOD SPECIMENOrdering Facility: [facility] Address: [address] [place] [address] Performed By: #### 5 7021-8 ####[facility]CLIA [id number] [place] [address] Neutrophils (Bld) [#/Vol] 2.42 10*3/uL Normal 1.45-7.50 [facility] Comment on above: Order Comment: Speci men Type: BLOOD SPECIMENOrdering Facility: [facility] Address: [address] [place] [address] Performed By: #### 5 7021-8 ####[facility] LABIA [id number] [place] [address] Neutrophils/100 WBC (Bld) 46.8 % Normal [facility] Comment on above: Order Comment: Speci men Type: BLOOD SPECIMENOrdering Facility: [facility] Address: [address] [place] [address] Performed By: #### 5 7021-8 ####[facility]CLIA [id number] [place] [address] Nucleated RBC (Bld) [#/Vol] 10*3/uL Normal <0.01 [facility] Comment on above: Order Comment: Speci men Type: BLOOD SPECIMENOrdering Facility: [facility] Address: [address] [place] [address] Performed By: #### 5 7021-8 ####[facility]IA [id number] [place] [address] Nucleated RBC/100 WBC (Bld) [Ratio] 0.0 /100 WBC Normal [facility] Comment on above: Order Comment: Speci men Type: BLOOD SPECIMENOrdering Facility: [facility] Address: [address] [place] [address] Performed By: #### 5 7021-8 ####[facility]CLIA [id number] [place] [address] Platelet mean volume (Bld) [Entitic vol] 10.5 fL Normal 9.0-12.7 [facility] Comment on above: Order Comment: Speci men Type: BLOOD SPECIMENOrdering Facility: [facility] Address: [address] [place] [address] Performed By: #### 5 7021-8 ####[facility]IA [id number] [place] [address] Platelets (Bld) [#/Vol] 179 10*3/uL Normal 150-400 [facility] Comment on above: Order Comment: Speci men Type: BLOOD SPECIMENOrdering Facility: [facility] Address: [address] [place] [address] Performed By: #### 5 7021-8 ####[facility]CLIA [id number] [place] [address] RBC (Bld) [#/Vol] 4.48 10*6/uL Normal 3.90-5.20 [facility] Comment on above: Order Comment: Speci men Type: BLOOD SPECIMENOrdering Facility: [facility] Address: [address] [place] [address] Performed By: #### 5 7021-8 ####[facility]CLIA [id number] [place] [address] WBC (Bld) [#/Vol] 5.17 10*3/uL Normal 3.70-11.00 [facility] Comment on above: Order Comment: Speci men Type: BLOOD SPECIMENOrdering Facility: [facility] Address: [address] [place] [address] Performed By: #### 5 7021-8 ####[facility]CLIA [id number] [place] [address] CRP [facility] 12-27-2023 CRP [Mass/Vol] mg/L Normal <0.9 [facility] Comment on above: Order Comment: Speci men Type: BLOOD SPECIMEN Ordering Facility: [facility] Address: [address] [place] [address] Performed By: #### 1 798-8, 1987-11, 3039-09 #### [facility] CLIA [id number] [address] [place], [place] [address] [place] Comprehensive metabolic 2000 panelon 12-27-2023 Albumin [Mass/Vol] 4.6 g/dL Normal 3.9-4.9 [facility] Comment on above: Order Comment: Speci men Type: BLOOD SPECIMEN Ordering Facility: [facility] Address: [address] [place] [address] Performed By: #### 1 798-8, 1987-11, 3039-09 #### [facility] CLIA [id number] [address] [place], [place] [address] [place] ALP [Catalytic activity/Vol] 53 U/L Normal 34-123 [facility] Comment on above: Order Comment: Speci men Type: BLOOD SPECIMEN Ordering Facility: [facility] Address: [address] [place] [address] Performed By: #### 1 798-8, 1987-11, 3039-09 #### [facility] CLIA [id number] [address] [place] [address] [place] ALT [Catalytic activity/Vol] 9 U/L Normal 7-38 [facility] Comment on above: Order Comment: Speci men Type: BLOOD SPECIMEN Ordering Facility: [facility] Address: [address] [place] [address] Performed By: #### 1 798-8, 1987-11, 3039-09 #### [facility] CLIA [id number] [address] [place] [address] [place] Anion gap [Moles/Vol] 6 mmol/L Low 8-15 [facility] Comment on above: Order Comment: Speci men Type: BLOOD SPECIMEN Ordering Facility: [facility] Address: [address] [place] [address] Performed By: #### 1 798-8, 1987-11, 3039-09 #### [facility] CLIA [id number] [address] [place] [address] [place] AST [Catalytic activity/Vol] 14 U/L Normal 13-35 [facility] Comment on above: Order Comment: Speci men Type: BLOOD SPECIMEN Ordering Facility: [facility] Address: [address] [place] [address] Performed By: #### 1 798-8, 1987-11, 3039-09 #### [facility] CLIA [id number] [address] [place] [address] [place] Bilirubin [Mass/Vol] 0.5 mg/dL Normal 0.2-1.3 [facility] Comment on above: Order Comment: Speci men Type: BLOOD SPECIMEN Ordering Facility: [facility] Address: [address] [place], [place] [address] Performed By: #### 1 798-8, 1987-11, 3039-09 #### [facility] CLIA [id number] [address] [place] [address] [place] Calcium [Mass/Vol] 10.2 mg/dL Normal 8.5-10.2 [facility] Comment on above: Order Comment: Speci men Type: BLOOD SPECIMEN Ordering Facility: [facility] Address: [address] [place] [address] Performed By: #### 1 798-8, 1987-11, 3039-09 #### [facility] CLIA [id number] [address] [place] [address] [place] Chloride [Moles/Vol] 103 mmol/L Normal 98-107 [facility] Comment on above: Order Comment: Speci men Type: BLOOD SPECIMEN Ordering Facility: [facility] Address: [address] [place] [address] Performed By: #### 1 798-8, 1987-11, 3039-09 #### [facility] CLIA [id number] [address] [place] [address] [place] CO2 [Moles/Vol] 28 mmol/L Normal 22-30 [facility] Comment on above: Order Comment: Speci men Type: BLOOD SPECIMEN Ordering Facility: [facility] Address: [address] [place] [address] Performed By: #### 1 798-8, 1987-11, 3039-09 #### [facility] CLIA [id number] [address] [place], [place] [address] [place] Creatinine [Mass/Vol] 0.68 mg/dL Normal 0.58-0.96 [facility] Comment on above: Order Comment: Speci men Type: BLOOD SPECIMEN Ordering Facility: [facility] Address: [address] [place] [address] Performed By: #### 1 798-8, 3039-09 #### [facility] CLIA [id number] [address] [place] [address] [place] Creatinine and Glomerular filtration rate.predicted panel (S/P/Bld) 124 mL/min/1.73m??? Normal >=60 [facility] Comment on above: Order Comment: Reilly medel Type: BLOOD SPECIMEN Ordering Facility: [facility] Address: [address] [place] [address] Result Comment: Ny mated Glomerular Filtration Rate [...] accurately reflect actual GFR. Performed By: #### 1 798-8, 3039-09 #### [facility] CLIA [id number] [address] [place] [address] [place] Glucose [Mass/Vol] 97 mg/dL Normal 74-99 [facility] Comment on above: Order Comment: Reilly medel Type: BLOOD SPECIMEN Ordering Facility: [facility] Address: [address] [place] [address] Result Comment: The [place] [employer] (ADA) provides guidance for cutoff [...] Standards of Medical Care in Diabetes 2016, [place] [employer]. Diabetes Care. 2016.39(Suppl 1). Performed By: #### 1 798-8, 3039-09 #### [facility] CLIA [id number] [address] [place] [address] [place] Potassium [Moles/Vol] 4.3 mmol/L Normal 3.7-5.1 [facility] Comment on above: Order Comment: Speci men Type: BLOOD SPECIMEN Ordering Facility: [facility] Address: [address] [place] [address] Performed By: #### 1 798-8, 3039-09 #### [facility] CLIA [id number] [address] [place] [address] [place] Protein [Mass/Vol] 7.2 g/dL Normal 6.3-8.0 [facility] Comment on above: Order Comment: Speci men Type: BLOOD SPECIMEN Ordering Facility: [facility] Address: [address] [place] [address] Performed By: #### 1 798-8, 3039-09 #### [facility] CLIA [id number] [address] [place], [place] [address] [place] Sodium [Moles/Vol] 137 mmol/L Normal 136-144 [facility] Comment on above: Order Comment: Speci men Type: BLOOD SPECIMEN Ordering Facility: [facility] Address: [address] [place], [place] [address] Performed By: #### 1 798-8, 3039-09 #### [facility] CLIA [id number] [address] [place] [address] [place] Urea nitrogen [Mass/Vol] 13 mg/dL Normal 7-21 [facility] Comment on above: Order Comment: Speci men Type: BLOOD SPECIMEN Ordering Facility: [facility] Address: [address] [place], [place] [address] Performed By: #### 1 798-8, 3039-09 #### [facility] CLIA [id number] [address] [place], [place] [address] [place] [id number] [place] ESR Westergren method (Bld) [Velocity]on 12-27-2023 ESR (Bld) [Velocity] 12 mm/h Normal 0-20 [facility] Comment on above: Order Comment: Speci men Type: BLOOD SPECIMENOrdering Facility: [facility] Address: [address] [place] [address] Performed By: #### 4 537-7 ####[facility] [id number] [facility] [place] [address] [place] Eosinophils/100 WBC Auto (Bl d)on 12-27-2023 Eosinophils/100 WBC (Bld) 4.3 % [facility] Erythrocyte distribution wid th Auto (RBC) [Ratio]on 12-27-2023 Erythrocyte distribution width (RBC) [Ratio] 11.6 % 11.5-15.0 [facility] Hematocrit Auto (Bld) [Volum e fraction]on 12-27-2023 Hematocrit (Bld) [Volume fraction] 41.5 % 36.0-46.0 [facility] Hemoglobin [Mass/volume] in Bloodon 12-27-2023 Hemoglobin (Bld) [Mass/Vol] 14.1 g/dL 11.5-15.5 [facility] Laboratory - Chemistry and C hemistry - challengeon 12-27-2023 Albumin [Mass/Vol] 4.6 g/dL 3.9-4.[address] [facility] ALP [Catalytic activity/Vol] 53 U/L 34-123 [facility] ALT [Catalytic activity/Vol] 9 U/L 7-38 [facility] Amylase [Catalytic activity/Vol] 44 U/L 30-104 [facility] AST [Catalytic activity/Vol] 14 U/L 13-35 [facility] Bilirubin [Mass/Vol] 0.5 mg/dL 0.2-1.3 [facility] Calcium [Mass/Vol] 10.2 mg/dL 8.5-10.[address] [facility] Chloride [Moles/Vol] 103 mmol/L 98-107 [facility] CO2 [Moles/Vol] 28 mmol/L 22-30 [facility] Creatinine [Mass/Vol] 0.68 mg/dL 0.58-0.96 [facility] Glucose [Mass/Vol] 97 mg/dL 74-[address] [facility] Comment on above: The [place] Di[employer] Association (ADA) provides guidance for [...] Standards of Medical Care in Diabetes 2016, [place] [employer]. Diabetes Care. 2016.39(Suppl 1). Lipase [Catalytic activity/Vol] 22 U/L [facility] Potassium [Moles/Vol] 4.3 mmol/L 3.7-5.1 [facility] Sodium [Moles/Vol] 137 mmol/L 136-[address] [facility] Urea nitrogen [Mass/Vol] 13 mg/dL 7-21 [facility] - Hematology and Cell countson 12-27-2023 Eosinophils (Bld) [#/Vol] 0.22 10*3/uL <0.46 [facility] ESR (Bld) [Velocity] 12 mm/h 0-20 [facility] Immature granulocytes/100 WBC (Bld) 0.2 % [facility] Leukocytes [#/volume] correc shena for nucleated erythrocytes in Blood by Automated counon 12-27-2023 WBC corrected for nucl RBC Auto (Bld) [#/Vol] 5.17 k/uL 3.70-11.00 [facility] Lipase SerPl-cCncon 12-27-19 24 Lipase [Catalytic activity/Vol] 22 U/L Normal 16- [facility] Comment on above: Order Comment: Speci men Type: BLOOD SPECIMEN Ordering Facility: [facility] Address: [address] [place] [address] Performed By: #### 1 798-8, 1987-5, 3040-3 #### [facility] CLIA [id number] [address] [place] [address] [place] Lymphocytes Auto (Bld) [#/Vo l]on 12-27-2023 Lymphocytes (Bld) [#/Vol] 2.06 10*3/uL 1.00-4.00 [facility] Lymphocytes/100 WBC Auto (Bl d)on 12-27-2023 Lymphocytes/100 WBC (Bld) 39.8 % [facility] MCH Auto (RBC) [Entitic mass ]on 12-27-2023 MCH (RBC) [Entitic mass] 31.5 pg 26.0-34.0 [facility] MCHC Auto (RBC) [Mass/Vol]on 12-27-2023 MCHC (RBC) [Mass/Vol] 34.0 g/dL 30.5-36.0 [facility] MCV Auto (RBC) [Entitic vol] on 12-27-2023 MCV (RBC) [Entitic vol] 92.6 fL 80.0-100.0 [facility] Monocytes Auto (Bld) [#/Vol] on 12-27-2023 Monocytes (Bld) [#/Vol] 0.42 10*3/uL <0.87 [facility] Monocytes/100 WBC Auto (Bld) on 12-27-2023 Monocytes/100 WBC (Bld) 8.1 % [facility] Neutrophils Auto (Bld) [#/Vo l]on 12-27-2023 Neutrophils (Bld) [#/Vol] 2.42 10*3/uL 1.45-7.50 [facility] Neutrophils/100 WBC Auto (Bl d)on 12-27-2023 Neutrophils/100 WBC (Bld) 46.8 % [facility] No Panel Informationon 12-26 C-Reactive Protein, Quantitative <0.3 mg/dL <0.9 [facility] Estimated GFR (CKD-EPI) 124 mL/min/1.73m??? >=60 [facility] Comment on above: Estimated Glomerular Filtration [...] Immature Granulocyte # (Auto) <0.03 k/uL <0.10 [facility] Nucleated RBC Auto (Bld) [#/ Vol]on 12-27-2023 Nucleated RBC (Bld) [#/Vol] 10*3/uL <0.01 [facility] Nucleated erythrocytes [Pres ence] in Blood by Automated counton 12-27-2023 Nucleated RBC Auto Ql (Bld) 0.0 /100{WBC} [facility] Platelet mean volume Auto (B ld) [Entitic vol]on 12-27-2023 Platelet mean volume (Bld) [Entitic vol] 10.5 fL 9.0-12.7 [facility] Platelets Auto (Bld) [#/Vol] on 12-27-2023 Platelets (Bld) [#/Vol] 179 10*3/uL 150-400 [facility] Protein [Mass/volume] in Ser um or Plasmaon 12-27-2023 Protein [Mass/Vol] 7.2 g/dL 6.3-8.[address] [facility] RBC Auto (Bld) [#/Vol]on RBC (Bld) [#/Vol] 4.48 10*6/uL 3.90-5.20 [facility] Serum or plasma anion gap de terminationon 12-27-2023 Anion gap [Moles/Vol] 6 mmol/L Low 8-15 [facility] CNCOon 12-05-2023 CNCO Letter Text Normal [facility] CNOVon 12-05-2023 CNOV Office Visit ([id number] ) ----- ROSA ALONZO ([id number]) 2000 F Date Time Provider Department 12/05/23 2:00 PM ARIELLA MCCOY [id number] During your visit today, we recorded the following information about you: Temperature Pulse Blood pressure Weight 98 degrees 90/minute 106/64 50.8 kg Height 1.626 m [place], [place] 12/05/2023 1:49 PM Signed What is [...] dry Temperature: No Drains: No Ariella Mccoy APRN.[facility] 12/05/2023 2:23 PM Signed GENERAL SURGERY FOLLOW [...] that may arise. Follow up: KAREN Mccoy APRN.STORE CUSTODIAN Referring Provider: ANALIA HOLLIDAY [[id number]] Allergies As of Date: 12/05/2023 Noted Allergy Reaction METRONIDAZOLE 09/07/2020 1 - Mental Status Change 6 - Diarrhea 8 - GI Upset 4 - Hives 14 - Other: See Comments 2 - Rash 12 - Shortness of Breath 16 - Unknown 11 - Vomiting Date Reviewed: 12/05/2023 Reviewed by: Ariella Mccoy APRN.STORE CUSTODIAN - Fully Assessed Reason for Visit: Post [...] 11/15/2023 Palpitations [R00.2] 11/15/2023 Visit Notes: >> Samia, Alivia, NEETA SunDecember 05, 2023 1:44 PM Status: Signed [...] for Encounter Date Provider Department Center 12/05/2023 [id number] MCCOY [id number] [facility] Encounter Status:Closed by ARIELLA MCCOY on 12/05/23 [facility] ANES POSTPROC EVALon 024 ANES POSTPROC EVAL HNO ID: [id number] Author: MOSHE KRISHNAMURTHY DO Service: Anesthesiology Author Type: Anesthesiologist Type: Anesthesia Postprocedure Evaluation Filed: 11/21/2023 17:47 Note Text: POST ANESTHESIA EVALUATION NOTE : 2000 Procedure Summary Date: 11/21/23 Room / Location: OR / OR Anesthesia Start: 1408 Anesthesia Stop: 1544 [...] November 21, 2023 TIME: 5:47 PM CSN: [id number] [facility] ANES PRE-OPon 11-21-2023 ANES PRE-OP HNO ID: [id number] Author: MOSHE KRISHNAMURTHY DO Service: Anesthesiology Author [...] November 21, 2023 TIME: 2:08 PM CSN: [id number] [facility] BRIEF OP NOTon 11-21-2023 BRIEF OP NOT HNO ID: [id number] Author: ANA LLANES MD Service: General Surgery Author Type: Resident Type: Brief Op Note Filed: 11/21/2023 15:32 Note Text: GENERAL SURGERY BRIEF OPERATIVE NOTE Rosa Alonzo [id number] LOG ID: [id number] Surgery/Procedure Date: 11/21/2023 Incision/Procedure Start Time: 2:30 PM Incision Close/Procedure End Time: 3:23 PM Surgeon(s)/Proceduralist( s) and Sewing Room Supervisor(s): Surgeon(s) and Role: * Seema Davis MD [...] 21, 2023 TIME: 3:31 PM PAGER/CONTACT #: [phone] [facility] OPERATIVE NOon 11-21-2023 OPERATIVE NO HNO ID: [id number] Author: SEEMA DAVIS MD Service: General Surgery Author Type: Physician Type: Operative Report Filed: 11/23/2023 14:05 Note Text: [facility] - Operative Report ROSA ALONZO : 2000 AGE: 23. SEX: F PATIENT TYPE: [place] [facility] [facility] [place] [facility] LOCATION: [facility] ATTENDING PHYSICIAN: Seema Davis M.D. CSN NUMBER: [id number] DATE OF SURGERY/PROCEDURE: 11/21/2023 INCISION/PROCEDURE START TIME: 2:30 PM INCISION CLOSE/PROCEDURE END TIME: 3:23 PM PREOPERATIVE DIAGNOSIS: Epigastric and right upper quadrant abdominal pain. POSTOPERATIVE DIAGNOSIS: Epigastric and right upper quadrant abdominal pain. SURGEON: Seema Davis M.D. PAYROLL AND BENEFITS MANAGER: Ana Llanes M.D. SURGERY/PROCEDURE: Laparoscopic cholecystectomy. ANESTHESIA: [...] infraumbilical site was closed with a single sbessp-az-rdpuj #0 Vicryl suture, local anesthetic was infiltrated and this was closed in layers with 3-0 Vicryl. The 5 mm sites were closed with 4-0 Monocryl. The wounds were washed and dried and Exofin glue applied. Patient was awakened and taken to Recovery in satisfactory condition. All counts were correct x2. I was present for the entire operation. Seema Davis M.D. :[id number] /[id number] [facility] PT EDon 11-21-2023 PT ED HNO ID: [id number] Author: JUAN NIEVES, RN Service: Nursing Author Type: Registered Nurse [...] (RECOMMENDATION): None Electronically Signed By: Juan Nieves [facility] PT ED HNO ID: [id number] Author: SHADIA PAINTER RN Service: ? Author [...] (RECOMMENDATION): None Electronically Signed By: Shadia Painter [facility] SURGICAL PATHOLOGYon CASE REPORT [facility] Comment on above: Order Comment: Speci men Type: TISSUE SPECIMENOrdering Facility: [facility] Address: [address] [place] [address] Result Comment: Surg ica Pathology Report Case: [id number] Authorizing Provider: Seema Davis MD Collected: 11/21/2023 02:39 PM Ordering Location: [facility] Received: 11/22/2023 07:43 AM Operating Room Pathologist: Woodrow Rain MD Specimen: Gallbladder Performed By: #### S ####[facility] [id number] [address] [place] CLINICAL HISTORY Normal [facility] Comment on above: Order Comment: Speci men Type: TISSUE SPECIMENOrdering Facility: [facility] Address: [address] [place] [address] Result Comment: Pre- op diagnosis: Cholecystitis [K81.9] Performed By: #### S ####[facility] [id number] [address] [place] FINAL DIAGNOSIS [facility] Comment on above: Order Comment: Speci men Type: TISSUE SPECIMENOrdering Facility: [facility] Address: [address] [place] [address] Result Comment: A. G allbladder, cholecystectomy: -Gallbladder with no diagnostic abnormality. Performed By: #### S ####[facility] [id number] [address] [place] FINAL PERFORMING LAB Normal [facility] Comment on above: Order Comment: Speci men Type: TISSUE SPECIMENOrdering Facility: [facility] Address: [address] [place] [address] Result Comment: Diag nostic interpretation performed at [facility], [address] [place] [address] CLIA# [id number] Elevated Guard: Roverto Coleman M.D. Performed By: #### S ####[facility] [id number] [address] GROSS DESCRIPTION A. Gallbladder Normal [facility] Comment on above: Order Comment: Speci men Type: TISSUE SPECIMENOrdering Facility: [facility] Address: [address] [place] [address] Result Comment: Rece ived in formalin designated [...] with a wall thickness of 0.1 cm. Ice Cream Freezer Assistant sections are submitted in 1 cassette. WE November 22, 2023 11:51 AM Gross examination performed at [facility], [address] [place] [address] Performed By: #### S ####[facility] [id number] [address] [place] Basophils Auto (Bld) [#/Vol] on 11-15-2023 Basophils (Bld) [#/Vol] 0.04 10*3/uL <0.11 [facility] Basophils/100 WBC Auto (Bld) on 11-15-2023 Basophils/100 WBC (Bld) 0.7 % [facility] Blood manual differential co mment interpretation narrativeon 11-15-2023 Manual differential comment Ganga (Bld) [Interp] Auto [facility] CBC W Auto Differential pane l (Bld)on 11-15-2023 Basophils (Bld) [#/Vol] 0.04 10*3/uL Normal <0.11 [facility] Comment on above: Order Comment: Speci men Type: BLOOD SPECIMEN Ordering Facility: [facility] Address: [address] [place] [address] Performed By: #### 5 7021-8 #### [facility] CLIA [id number] [address] [place] [address] [place] Basophils/100 WBC (Bld) 0.7 % Normal [facility] Comment on above: Order Comment: Speci men Type: BLOOD SPECIMEN Ordering Facility: [facility] Address: [address] [place] [address] Performed By: #### 5 7021-8 #### [facility] CLIA [id number] [address] [place] [address] [place] Differential cell count method Nom (Bld) Auto Normal [facility] Comment on above: Order Comment: Speci men Type: BLOOD SPECIMEN Ordering Facility: [facility] Address: [address] [place] [address] Performed By: #### 5 7021-8 #### [facility] CLIA [id number] [address] [place] [address] [place] Eosinophils (Bld) [#/Vol] 0.19 10*3/uL Normal <0.46 [facility] Comment on above: Order Comment: Speci men Type: BLOOD SPECIMEN Ordering Facility: [facility] Address: [address] [place] [address] Performed By: #### 5 7021-8 #### [facility] CLIA [id number] [address] [place] [address] [place] Eosinophils/100 WBC (Bld) 3.4 % Normal [facility] Comment on above: Order Comment: Speci men Type: BLOOD SPECIMEN Ordering Facility: [facility] Address: [address] [place] [address] Performed By: #### 5 7021-8 #### [facility] CLIA [id number] [address] [place] [address] [place] Erythrocyte distribution width (RBC) [Ratio] 11.6 % Normal 11.5-15.0 [facility] Comment on above: Order Comment: Speci men Type: BLOOD SPECIMEN Ordering Facility: [facility] Address: [address] [place] [address] Performed By: #### 5 7021-8 #### [facility] CLIA [id number] [address] [place] [address] [place] Hematocrit (Bld) [Volume fraction] 37.7 % Normal 36.0-46.0 [facility] Comment on above: Order Comment: Speci men Type: BLOOD SPECIMEN Ordering Facility: [facility] Address: [address] [place] [address] Performed By: #### 5 7021-8 #### [facility] CLIA [id number] [address] [place] [address] [place] Hemoglobin (Bld) [Mass/Vol] 12.6 g/dL Normal 11.5-15.5 [facility] Comment on above: Order Comment: Speci men Type: BLOOD SPECIMEN Ordering Facility: [facility] Address: [address] [place] [address] Performed By: #### 5 7021-8 #### [facility] CLIA [id number] [address] [place] [address] [place] Immature granulocytes (Bld) [#/Vol] 10*3/uL Normal <0.10 [facility] Comment on above: Order Comment: Speci men Type: BLOOD SPECIMEN Ordering Facility: [facility] Address: [address] [place] [address] Performed By: #### 5 7021-8 #### [facility] CLIA [id number] [address] [place] [address] [place] Immature granulocytes/100 WBC (Bld) 0.2 % Normal [facility] Comment on above: Order Comment: Speci men Type: BLOOD SPECIMEN Ordering Facility: [facility] Address: [address] [place] [address] Performed By: #### 5 7021-8 #### [facility] CLIA [id number] [address] [place] [address] [place] Lymphocytes (Bld) [#/Vol] 2.43 10*3/uL Normal 1.00-4.00 [facility] Comment on above: Order Comment: Speci men Type: BLOOD SPECIMEN Ordering Facility: [facility] Address: [address] [place] [address] Performed By: #### 5 7021-8 #### [facility] IA [id number] [address] [place] [address] [place] Lymphocytes/100 WBC (Bld) 43.6 % Normal [facility] Comment on above: Order Comment: Speci men Type: BLOOD SPECIMEN Ordering Facility: [facility] Address: [address] [place] [address] Performed By: #### 5 7021-8 #### [facility] IA [id number] [address] [place] [address] [place] MCH (RBC) [Entitic mass] 31.9 pg Normal 26.0-34.0 [facility] Comment on above: Order Comment: Speci men Type: BLOOD SPECIMEN Ordering Facility: [facility] Address: [address] [place] [address] Performed By: #### 5 7021-8 #### [facility] IA [id number] [address] [place] [address] [place] MCHC (RBC) [Mass/Vol] 33.4 g/dL Normal 30.5-36.0 [facility] Comment on above: Order Comment: Speci men Type: BLOOD SPECIMEN Ordering Facility: [facility] Address: [address] [place] [address] Performed By: #### 5 7021-8 #### [facility] IA [id number] [address] [place] [address] [place] MCV (RBC) [Entitic vol] 95.4 fL Normal 80.0-100.0 [facility] Comment on above: Order Comment: Speci men Type: BLOOD SPECIMEN Ordering Facility: [facility] Address: [address] [place] [address] Performed By: #### 5 7021-8 #### [facility] IA [id number] [address] [place] [address] [place] Monocytes (Bld) [#/Vol] 0.47 10*3/uL Normal <0.87 [facility] Comment on above: Order Comment: Speci men Type: BLOOD SPECIMEN Ordering Facility: [facility] Address: [address] [place] [address] Performed By: #### 5 7021-8 #### [facility] IA [id number] [address] [place] [address] [place] Monocytes/100 WBC (Bld) 8.4 % Normal [facility] Comment on above: Order Comment: Speci men Type: BLOOD SPECIMEN Ordering Facility: [facility] Address: [address] [place] [address] Performed By: #### 5 7021-8 #### [facility] IA [id number] [address] [place] [address] [place] Neutrophils (Bld) [#/Vol] 2.43 10*3/uL Normal 1.45-7.50 [facility] Comment on above: Order Comment: Speci men Type: BLOOD SPECIMEN Ordering Facility: [facility] Address: [address] [place] [address] Performed By: #### 5 7021-8 #### [facility] IA [id number] [address] [place] [address] [place] Neutrophils/100 WBC (Bld) 43.7 % Normal [facility] Comment on above: Order Comment: Speci men Type: BLOOD SPECIMEN Ordering Facility: [facility] Address: [address] [place] [address] Performed By: #### 5 7021-8 #### [facility] IA [id number] [address] [place] [address] [place] Nucleated RBC (Bld) [#/Vol] 10*3/uL Normal <0.01 [facility] Comment on above: Order Comment: Speci men Type: BLOOD SPECIMEN Ordering Facility: [facility] Address: [address] [place] [address] Performed By: #### 5 7021-8 #### [facility] IA [id number] [address] [place] [address] [place] Nucleated RBC/100 WBC (Bld) [Ratio] 0.0 /100 WBC Normal [facility] Comment on above: Order Comment: Speci men Type: BLOOD SPECIMEN Ordering Facility: [facility] Address: [address] [place] [address] Performed By: #### 5 7021-8 #### [facility] IA [id number] [address] [place] [address] [place] Platelet mean volume (Bld) [Entitic vol] 10.5 fL Normal 9.0-12.7 [facility] Comment on above: Order Comment: Speci men Type: BLOOD SPECIMEN Ordering Facility: [facility] Address: [address] [place] [address] Performed By: #### 5 7021-8 #### [facility] IA [id number] [address] [place] [address] [place] Platelets (Bld) [#/Vol] 201 10*3/uL Normal 150-400 [facility] Comment on above: Order Comment: Speci men Type: BLOOD SPECIMEN Ordering Facility: [facility] Address: [address] [place] [address] Performed By: #### 5 7021-8 #### [facility] CLIA [id number] [address] [facility] [place] [address] [place] RBC (Bld) [#/Vol] 3.95 10*6/uL Normal 3.90-5.20 [facility] Comment on above: Order Comment: Speci men Type: BLOOD SPECIMEN Ordering Facility: [facility] Address: [address] [place] [address] Performed By: #### 5 7021-8 #### [facility] CLIA [id number] [address] [facility] [place] [address] [place] WBC (Bld) [#/Vol] 5.57 10*3/uL Normal 3.70-11.00 [facility] Comment on above: Order Comment: Speci men Type: BLOOD SPECIMEN Ordering Facility: [facility] Address: [address] [place] [address] Performed By: #### 5 7021-8 #### [facility] IA [id number] [address] [facility] [address] [address] [place] Basophils (Bld) [#/Vol] 0.04 10*3/uL [facility] Basophils/100 WBC (Bld) 0.7 % [facility] Differential cell count method Nom (Bld) Auto [facility] Eosinophils (Bld) [#/Vol] 0.19 10*3/uL [facility] Eosinophils/100 WBC (Bld) 3.4 % [facility] Erythrocyte distribution width (RBC) [Ratio] 11.6 % 11.5 - 15.0 % [facility] Hematocrit (Bld) [Volume fraction] 37.7 % 36.0 - 46.0 % [facility] Hemoglobin (Bld) [Mass/Vol] 12.6 g/dL 11.5 - 15.5 g/dL [facility] Immature granulocytes (Bld) [#/Vol] NINF [facility] Immature granulocytes/100 WBC (Bld) 0.2 % [facility] Lymphocytes (Bld) [#/Vol] 2.43 10*3/uL [facility] Lymphocytes/100 WBC (Bld) 43.6 % [facility] MCH (RBC) [Entitic mass] 31.9 pg 26.0 - 34.0 pg [facility] MCHC (RBC) [Mass/Vol] 33.4 g/dL 30.5 - 36.0 g/dL [facility] MCV (RBC) [Entitic vol] 95.4 fL 80.0 - 100.0 fL [facility] Monocytes (Bld) [#/Vol] 0.47 10*3/uL NINF [facility] Monocytes/100 WBC (Bld) 8.4 % [facility] Neutrophils (Bld) [#/Vol] 2.43 10*3/uL [facility] Neutrophils/100 WBC (Bld) 43.7 % [facility] Nucleated RBC (Bld) [#/Vol] NINF [facility] Nucleated RBC/100 WBC (Bld) [Ratio] 0.0 % /100 WBC [facility] Platelet mean volume (Bld) [Entitic vol] 10.5 fL 9.0 - 12.7 fL [facility] Platelets (Bld) [#/Vol] 201 10*3/uL [facility] RBC (Bld) [#/Vol] 3.95 10*6/uL 3.90 - 5.2 0 m/uL [facility] WBC (Bld) [#/Vol] 5.57 10*3/uL [facility] CNPNon 11-15-2023 CNPN Telephone (AVPANE) ----- CLINTONROSA Watkins ([id number]) 2000 F Date Time Provider Department 11/15/23 VIKTORIA CAUSEY During your visit today, we recorded the following information about you: Viktoria Causey PA-C 11/16/2023 7:[address] Rushing , Your patient was seen for preanesthesia consult 11/15/2023. Rosa Puentese is scheduled for LAPAROSCOPIC CHOLECYSTECTOMY with Dr. Seema Davis on 11/21/2023. Do you feel they are medically optimized and ok to proceed as scheduled? Event monitor preliminary reading in EPIC View Cardiac Outpatient Recording/Telemetry [ID [id number]] ECHO completed in EPIC. Of note she also has been to [...] PM Signed Faxed Cardiac Clearance form to [facility] at [phone]. Scanned into chart. CHATO Ramirez Allergies As [...] Status:Closed by VIKTORIA CAUSEY on 11/16/23 Normal [facility] Comprehensive metabolic 2000 panelon 11-15-2023 Albumin [Mass/Vol] 4.4 g/dL Normal 3.9-4.9 [facility] Comment on above: Order Comment: Speci men Type: BLOOD SPECIMEN Ordering Facility: [facility] Address: [address] [place] [address] Performed By: #### 2 4323-8 #### [facility] CLIA [id number] [address] [facility] [place] [address] [place] ALP [Catalytic activity/Vol] 47 U/L Normal 34-123 [facility] Comment on above: Order Comment: Speci men Type: BLOOD SPECIMEN Ordering Facility: [facility] Address: [address] [place] [address] Performed By: #### 2 4323-8 #### [facility] CLIA [id number] [address] [place] [address] [place] ALT [Catalytic activity/Vol] 8 U/L Normal 7-38 [facility] Comment on above: Order Comment: Speci men Type: BLOOD SPECIMEN Ordering Facility: [facility] Address: [address] [place] [address] Performed By: #### 2 4323-8 #### [facility] CLIA [id number] [address] [place] [address] [place] Anion gap [Moles/Vol] 11 mmol/L Normal 9-18 [facility] Comment on above: Order Comment: Speci men Type: BLOOD SPECIMEN Ordering Facility: [facility] Address: [address] [place] [address] Performed By: #### 2 4323-8 #### [facility] LABORATORY CLIA [id number] [place] [address] [place] AST [Catalytic activity/Vol] 18 U/L Normal 13-35 [facility] Comment on above: Order Comment: Speci men Type: BLOOD SPECIMEN Ordering Facility: [facility] Address: [address] [place] [address] Performed By: #### 2 4323-8 #### [facility] IA [id number] [address] [place] [address] [place] Bilirubin [Mass/Vol] 0.4 mg/dL Normal 0.2-1.3 [facility] Comment on above: Order Comment: Speci men Type: BLOOD SPECIMEN Ordering Facility: [facility] Address: [address] [place] [address] Performed By: #### 2 4323-8 #### [facility] IA [id number] [address] [place] [address] [place] Calcium [Mass/Vol] 9.6 mg/dL Normal 8.5-10.2 [facility] Comment on above: Order Comment: Speci men Type: BLOOD SPECIMEN Ordering Facility: [facility] Address: [address] [place] [address] Performed By: #### 2 4323-8 #### [facility] CLIA [id number] [address] [place] [address] [place] Chloride [Moles/Vol] 103 mmol/L Normal 97-105 [facility] Comment on above: Order Comment: Speci men Type: BLOOD SPECIMEN Ordering Facility: [facility] Address: [address] [place] [address] Performed By: #### 2 4323-8 #### [facility] CLIA [id number] [address] [place] [address] [place] CO2 [Moles/Vol] 24 mmol/L Normal 22-30 [facility] Comment on above: Order Comment: Speci men Type: BLOOD SPECIMEN Ordering Facility: [facility] Address: [address] [place] [address] Performed By: #### 2 4323-8 #### [facility] CLIA [id number] [address] [place] [address] [place] Creatinine [Mass/Vol] 0.75 mg/dL Normal 0.58-0.96 [facility] Comment on above: Order Comment: Speci men Type: BLOOD SPECIMEN Ordering Facility: [facility] Address: [address] [place] [address] Performed By: #### 2 4323-8 #### [facility] CLIA [id number] [address] [place] [address] [facility] Creatinine and Glomerular filtration rate.predicted panel (S/P/Bld) 114 mL/min/1.73m??? Normal >=60 [facility] l Comment on above: Order Comment: Speci men Type: BLOOD SPECIMEN Ordering Facility: [facility] Address: [address] [place] [address] Result Comment: Ny mated Glomerular Filtration Rate [...] GFR. Performed By: #### 2 4323-8 #### [facility] CLIA [id number] [address] [place] [address] [place] Glucose [Mass/Vol] 109 mg/dL High 74-99 [facility] Comment on above: Order Comment: Reilly medel Type: BLOOD SPECIMEN Ordering Facility: [facility] Address: [address] [place] [address] Result Comment: The [place] Diabetes Association (ADA) provides guidance for cutoff [...] Standards of Medical Care in Diabetes 2016, [place] [employer]. Diabetes Care. 2016.39(Suppl 1). Performed By: #### 2 4323-8 #### [facility] CLIA [id number] [address] [place] [address] [place] Potassium [Moles/Vol] 4.5 mmol/L Normal 3.7-5.1 [facility] Comment on above: Order Comment: Reilly medel Type: BLOOD SPECIMEN Ordering Facility: [facility] Address: [address] [place] [address] Performed By: #### 2 4323-8 #### [facility] CLIA [id number] [address] [place] [address] [place] Protein [Mass/Vol] 6.9 g/dL Normal 6.3-8.0 [facility] Comment on above: Order Comment: Reilly medel Type: BLOOD SPECIMEN Ordering Facility: [facility] Address: [address] [place] [address] Performed By: #### 2 4323-8 #### [facility] CLIA [id number] [address] [place] [address] [place] Sodium [Moles/Vol] 138 mmol/L Normal 136-144 [facility] Comment on above: Order Comment: Speci men Type: BLOOD SPECIMEN Ordering Facility: [facility] Address: [address] [place] [address] Performed By: #### 2 4323-8 #### [facility] CLIA [id number] [address] [place] [address] [place] Urea nitrogen [Mass/Vol] 16 mg/dL Normal 7-21 [facility] Comment on above: Order Comment: Speci men Type: BLOOD SPECIMEN Ordering Facility: [facility] Address: [address] [place] [address] Performed By: #### 2 4323-8 #### [facility] CLIA [id number] [address] [place] [address] [place] Albumin [Mass/Vol] 4.4 g/dL 3.9 - 4.9 g/dL [facility] ALP [Catalytic activity/Vol] 47 U/L 34 - 123 U/L [facility] ALT [Catalytic activity/Vol] 8 U/L 7 - 38 U/L [facility] Anion gap [Moles/Vol] 11 mmol/L 9 - 18 mmol/L [facility] AST [Catalytic activity/Vol] 18 U/L 13 - 35 U/L [facility] Bilirubin [Mass/Vol] 0.4 mg/dL 0.2 - 1 .3 mg/dL [facility] Calcium [Mass/Vol] 9.6 mg/dL 8.5 - 10. 2 mg/dL [facility] Chloride [Moles/Vol] 103 mmol/L 97 - 10 5 mmol/L [facility] CO2 [Moles/Vol] 24 mmol/L 22 - 30 mmol/L [facility] Creatinine [Mass/Vol] 0.75 mg/dL 0.58 - 0.96 mg/dL [facility] GFR/1.73 sq M.predicted among non-blacks MDRD (S/P/Bld) [Vol rate/Area] 114 mL/min/{1.73_m2} - PINF [facility] Comment on above: Estimated Glomerular Filtration Rate [...] 109 mg/dL High 74 - 99 mg/dL [facility] Comment on above: The [place] Diab[employer] s Association (ADA) provides guidance for [...] Standards of Medical Care in Diabetes 2016, [place] [employer]. Diabetes Care. 2016.39(Suppl 1). Interpretation and review of laboratory results Abnormal [facility] Potassium [Moles/Vol] 4.5 mmol/L 3.7 - 5.1 mmol/L [facility] Protein [Mass/Vol] 6.9 g/dL 6.3 - 8.0 g/dL [facility] Sodium [Moles/Vol] 138 mmol/L 136 - 144 mmol/L [facility] Urea nitrogen [Mass/Vol] 16 mg/dL 7 - 21 mg/dL [facility] Eosinophils/100 WBC Auto (Bl d)on 11-15-2023 Eosinophils/100 WBC (Bld) 3.4 % [facility] Erythrocyte distribution wid th Auto (RBC) [Ratio]on 11-15-2023 Erythrocyte distribution width (RBC) [Ratio] 11.6 % 11.5-15.0 [facility] HISTORY PHYSICALon HISTORY PHYSICAL HNO ID: [id number] Author: VIKTORIA CAUSEY PA-C Service: ? Author Type: Physician Sewing Room Supervisor Type: H&P Filed: 11/16/2023 07:41 Note Text: [...] SOB. Pulse today 75, regular rhythm today [id number] Ejection Fraction - Result: 63 % [...] Prior to Admission medications as of 11/15/23 0509 Medication Sig Last Dose Taking dicyclomine (BENTYL) 20 mg tablet Take 1 tablet by mouth q 8 HR. Taking Yes escitalopram oxalate (LEXAPRO) 10 mg tablet Take 5 mg by mouth once daily. Taking Yes ondansetron (ZOFRAN) 4 mg tablet Take 4 mg by mouth as needed. Taking Differently Yes No (more content not included)... Normal [facility] Hematocrit Auto (Bld) [Volum e fraction]on 11-15-2023 Hematocrit (Bld) [Volume fraction] 37.7 % 36.0-46.0 [facility] Hemoglobin [Mass/volume] in Bloodon 11-15-2023 Hemoglobin (Bld) [Mass/Vol] 12.6 g/dL 11.5-15.5 [facility] Laboratory - Chemistry and C hemistry - challengeon 11-15-2023 Albumin [Mass/Vol] 4.4 g/dL 3.9-4.[address] [facility] ALP [Catalytic activity/Vol] 47 U/L 34-123 [facility] ALT [Catalytic activity/Vol] 8 U/L 7-38 [facility] AST [Catalytic activity/Vol] 18 U/L 13-35 [facility] Bilirubin [Mass/Vol] 0.4 mg/dL 0.2-1.3 [facility] Calcium [Mass/Vol] 9.6 mg/dL 8.5-10.[address] [facility] Chloride [Moles/Vol] 103 mmol/L 97-105 [facility] CO2 [Moles/Vol] 24 mmol/L 22-30 [facility] Creatinine [Mass/Vol] 0.75 mg/dL 0.58-0.96 [facility] Glucose [Mass/Vol] 109 mg/dL 74-[address] [facility] Comment on above: The [place] Diabete s Association (ADA) provides guidance for [...] Standards of Medical Care in Diabetes 2016, [place] [employer]. Diabetes Care. 2016.39(Suppl 1). Potassium [Moles/Vol] 4.5 mmol/L 3.7-5.1 [facility] Sodium [Moles/Vol] 138 mmol/L 136-[address] [facility] Urea nitrogen [Mass/Vol] 16 mg/dL 7-21 [facility] Laboratory - Hematology and Cell countson 11-15-2023 Eosinophils (Bld) [#/Vol] 0.19 10*3/uL <0.46 [facility] Immature granulocytes/100 WBC (Bld) 0.2 % [facility] Leukocytes [#/volume] correc shena for nucleated erythrocytes in Blood by Automated counon 11-15-2023 WBC corrected for nucl RBC Auto (Bld) [#/Vol] 5.57 k/uL 3.70-11.00 [facility] Lymphocytes Auto (Bld) [#/Vo l]on 11-15-2023 Lymphocytes (Bld) [#/Vol] 2.43 10*3/uL 1.00-4.00 [facility] Lymphocytes/100 WBC Auto (Bl d)on 11-15-2023 Lymphocytes/100 WBC (Bld) 43.6 % [facility] MCH Auto (RBC) [Entitic mass ]on 11-15-2023 MCH (RBC) [Entitic mass] 31.9 pg 26.0-34.0 [facility] MCHC Auto (RBC) [Mass/Vol]on 11-15-2023 MCHC (RBC) [Mass/Vol] 33.4 g/dL 30.5-36.0 [facility] MCV Auto (RBC) [Entitic vol] on 11-15-2023 MCV (RBC) [Entitic vol] 95.4 fL 80.0-100.0 [facility] Monocytes Auto (Bld) [#/Vol] on 11-15-2023 Monocytes (Bld) [#/Vol] 0.47 10*3/uL <0.87 [facility] Monocytes/100 WBC Auto (Bld) on 11-15-2023 Monocytes/100 WBC (Bld) 8.4 % [facility] Neutrophils Auto (Bld) [#/Vo l]on 11-15-2023 Neutrophils (Bld) [#/Vol] 2.43 10*3/uL 1.45-7.50 [facility] Neutrophils/100 WBC Auto (Bl d)on 11-15-2023 Neutrophils/100 WBC (Bld) 43.7 % [facility] No Panel Informationon 11-14 Estimated GFR (CKD-EPI) 114 mL/min/1.73m??? >=60 [facility] Comment on above: Estimated Glomerular Filtration [...] Immature Granulocyte # (Auto) <0.03 k/uL <0.10 [facility] Nucleated RBC Auto (Bld) [#/ Vol]on 11-15-2023 Nucleated RBC (Bld) [#/Vol] 10*3/uL <0.01 [facility] Nucleated erythrocytes [Pres ence] in Blood by Automated counton 11-15-2023 Nucleated RBC Auto Ql (Bld) 0.0 /100{WBC} [facility] Platelet mean volume Auto (B ld) [Entitic vol]on 11-15-2023 Platelet mean volume (Bld) [Entitic vol] 10.5 fL 9.0-12.7 [facility] Platelets Auto (Bld) [#/Vol] on 11-15-2023 Platelets (Bld) [#/Vol] 201 10*3/uL 150-400 [facility] Protein [Mass/volume] in Ser um or Plasmaon 11-15-2023 Protein [Mass/Vol] 6.9 g/dL 6.3-8.[address] [facility] RBC Auto (Bld) [#/Vol]on RBC (Bld) [#/Vol] 3.95 10*6/uL 3.90-5.20 [facility] Serum or plasma anion gap de terminationon 11-15-2023 Anion gap [Moles/Vol] 11 mmol/L 9-18 [facility] ECHOon 11-07-2023 Echocardiography Echocardiography Rep ort: Transthoracic Echo [facility] Date of service: 11/07/2023 1:59:20 PM BLENDER Ordering physician: SEDRICK RUSHING Indication: Abnormal ECG Technologist: Walt Silva [facility] Interpreting physician: Roberto Rodríguez MD PATIENT: [...] * * Final * * * CC [employer] Image : [id number] [facility] Christine 11-05-2023 CNPN Telephone (CARDAV) ----- ROSA ALONZO ([id number]) 2000 F Date Time Provider Department 11/05/23 [...] Fully Assessed Reason for Visit: Patient Question [2557] Cmt: PVCs and Frequent ED visits. Prescriptions [...] Encounter Status:Closed by [facility]ICK [facility] (FAINA[facility] ----- ROSA ALONZO ([id number]) 2000 F Date Time Provider Department 10/30/23 SEDRICK RUSHING During your visit today, we recorded the following information about you: Juanis Cabello, RN 10/30/2023 11:14 AM Signed The pt is calling. Please review the my chart message from today for an EKG attachment she sent from her ED visit last night. She went to the [place] ED. Are you able to revue her [...] ongoing symptoms Staying hydrated Concerned Call CELL [phone] Leave Detailed messages Chichi Monroy, VIRGILIO 11/01/2023 [...] Encounter Status:Closed by CHICHI MONROY on 11/01/23 [facility] Christine 10-23-2023 [facility] Telephone (FAINA) ----- ROSA ALONZO ([id number]) 2000 F Date Time Provider Department 10/23/23 SEDRICK RUSHING During your visit today, we recorded the following information about you: Wilfredo Avila OCCA 10/23/2023 1:53 PM Signed Received form requesting cardiac evaluation for surgical clearance from [facility] General Surgery with Dr. Seema Davis. Surgery Date: 11-21-2023 Fax to [facility] Surgery: [phone] Rushing to review. CHATO Ramirez Cynthia, OCCA 12/07/2023 4:[address] Rushing filled out Cardiac Clearance Form. Faxed to [facility] Surgery at [phone]. Scanned into chart. CHATO Rmairez Allergies As of Date: 10/23/2023 Noted Allergy [...] Status:Closed by WILFREDO AVILA on 10/23/23 [facility] ----- ROSA ALONZO ([id number]) 2000 F Date Time Provider Department 10/23/23 SEEMA DAVIS [facility] During your visit today, we recorded the following information about you: Daxa Gray RN 10/23/2023 1:[address] Sedrick Rushing's office for cardiac clearance at [phone]. Abnormal heart sounds with gallbladder consult on [...] Fully Assessed Reason for Visit: Cardiac Clearance [8991] Prescriptions as of 10/23/2023 - dicyclomine (BENTYL) [...] Encounter Status:Closed by DAXA GRAY on 10/23/23 [facility] CNOVon 10-22-2023 CNOV Office Visit (CARINF ) ----- ROSA ALONZO ([id number]) 2000 F Date Time Provider Department 10/22/23 3:00 PM SEDRICK RUSHING CARINF During your visit today, we recorded the following information about you: Pulse Blood pressure Weight Height 40/minute 102/62 52.6 kg 1.626 m Sedrick Rushing MD 10/22/2023 3:17 PM [facility] [place] Iram Pathak Department of Cardiovascular Medicine SECTION OF REGIONAL CARDIOLOGY OUTPATIENT VISIT DATE October 21, 2023 OUTPATIENT VISIT TYPE NEW CONSULTATION PRIMARY CARE PHYSICIAN: Analia Holliday [address] [address] CHIEF COMPLAINT: Palpitations HISTORY OF PRESENT ILLNESS: [...] Shortness of Breath, Unknown, Vomiting CURRENT MEDICATIONS: qdbgcw-wabrqxka-zebjjwn (CREON) 24,000-76,000 -120,000 unit delayed release capsule [...] on File Prior to Visit Medication Sig fxpvcu-trzlkagn-fmckmjv (CREON) 24,000-76,000 -120,000 unit delayed release capsule [...] Rushing MD Cardiovascular Medicine Staff [facility] [address] [place] [address] Azael Larson LPN 10/22/2023 3:33 PM Signed EVENT MONITOR DISPOSABLE PATCH INSTRUCTIONS Patient Name: Rosa Alonzo Clinic Number: [id number] Skin prepped and cleansed with alcohol Patch secured to prepped area Monitor Activated Serial #: [id number] Patient Instructed: Prescribed order timeframe Bathing guidelines Usage of event button and diary documentation Return of monitor at the end of prescribed order Call with problems [phone] or [phone]. [phone] (more content not included)... [facility] CNOVon 10-19-2023 CNOV Office Visit (GEMBHT ) ----- ROSA ALONZO ([id number]) 2000 F Date Time Provider Department 10/19/23 2:20 PM SEEMA DAVIS [facility] During your visit today, we [...] Take 4 mg by mouth as needed. 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 Lives with her . [...] the date of the service which included ljjl-mx-fvls patient care, completing clinical documentation, obtaining and/or reviewing separately obtained history, performing a medically appropriate examination, counseling and educating the patient/family/caregiver, and independently interpreting results (not separately reported). Seema Davis MD . Daxa Gray, RN 10/21/2023 9:18 PM Signed New patient [...] within normal limits Referring Provider: SEEMA DAVIS [[id number]] Allergies As of Date: 10/19/2023 Noted Allergy Reaction METRONIDAZOLE 09/07/2020 1 - Mental Status Change 6 - Diarrhea 8 - GI Upset 4 - Hives 14 - Other: See Comments 2 - Rash 12 - Shortness of Breath 16 - Unknown 11 - Vomiting Date Reviewed: 10/19/2023 (more content not included)... [facility] ECG COMPLETEon 10-19-2023 ECG COMPLETE Ventricular Rate : 6 7 BPM Atrial Rate : 67 BPM P-R Interval : 160 ms QRS Duration : 94 ms Q-T Interval : 402 ms QTC Calculation(Bazett) : 424 ms Calculated P [place] : 76 degrees Calculated R [place] : 37 degrees Calculated T [place] : 57 degrees NORMAL SINUS RHYTHM WITH SINUS ARRHYTHMIA POSSIBLE LEFT ATRIAL ENLARGEMENT RSR' PATTERN IN V1 SUGGESTS INCOMPLETE RIGHT BUNDLE BRANCH BLOCK BORDERLINE ECG NO PREVIOUS ECGS AVAILABLE Confirmed by JENNIFER SURESH MD ([id number]) on 10/22/2023 1:00:28 PM NAME : ROSA ALONZO PID : [id number] : 2000 Gender : Female Race : ORD : [id number] Procedure Date : Oct 19 2023 14:37:15 Edit Date : Oct 22 2023 13:00:33 Diagnosis: NORMAL SINUS RHYTHM WITH SINUS ARRHYTHMIA POSSIBLE LEFT ATRIAL ENLARGEMENT RSR' PATTERN IN V1 SUGGESTS INCOMPLETE RIGHT BUNDLE BRANCH BLOCK BORDERLINE ECG NO PREVIOUS ECGS AVAILABLE Confirmed by JENNIFER SURESH MD ([id number]) on 10/22/2023 1:00:28 PM Test Reason : SVT Location : 667 : [facility] Overread By : JENNIFER SURESH MD Edited By : JENNIFER SURESH MD Referred By : SEEMA DAVIS Acquired by : [id number], [facility] 09-11-2023 CNPN Telephone (LENA) ----- ROSA ALONZO N ([id number]) 2000 F Date Time Provider Department 09/11/23 [...] 4:25 PM Signed Please refer to [place] jones dated 09/11/2023. Gisela Ponce RN Allergies As [...] Update [1234] Prescriptions as of 09/11/2023 - hrvqeq-ekbumjcz-aidgnni (CREON) 24,000-76,000 -120,000 unit delayed release capsule [...] Encounter Status:Closed by GISELA PONCE on 09/11/23 [facility] ANES POSTPROC EVALon 024 ANES POSTPROC EVAL HNO ID: [id number] Author: CIPRIANO PIMENTEL MD Service: Anesthesiology Author Type: Anesthesiologist Type: Anesthesia Postprocedure Evaluation Filed: 09/06/2023 13:55 Note Text: POST ANESTHESIA EVALUATION NOTE : 2000 Procedure Summary Date: 09/06/23 Room / Location: [facility] Endoscopy - ENDO Anesthesia Start: 1244 Anesthesia Stop: 1327 Procedure: EGD - THERAPEUTIC, EUS, OR TUBE INTERVENTIONS Diagnosis: Chronic recurrent pancreatitis (HCC) Scheduled Providers: Isabelle Menon MD; Cipriano Pimentel MD; Elif Hess APRN.STEM FRAZER Responsible Provider: Cipriano Pimentel MD Anesthesia Type: [...] September 06, 2023 TIME: 1:55 PM CSN: [id number] Normal [facility] ANES PRE-OPon 09-06-2023 ANES PRE-OP HNO ID: [id number] Author: CIPRIANO PIMENTEL MD Service: Anesthesiology Author Type: Anesthesiologist Type: Anesthesia Preprocedure Evaluation Filed: 09/06/2023 10:56 Note Text: ANESTHESIOLOGY DAY OF SURGERY NOTE : 2000 Procedure Information Date/Time: 09/06/23 1130 Scheduled providers: Isabelle Menon MD; Cipriano Pimentel MD; Elif Hess APRN.STEM FRAZER Procedure: EGD - THERAPEUTIC, EUS, OR TUBE INTERVENTIONS Location: [facility] Endoscopy - ENDO Estimated body mass [...] 10 mg by mouth once daily. - ugfgzu-uxxuyyem-kxgylzy (CREON) 24,000-76,000 -120,000 unit delayed release capsule [...] September 06, 2023 TIME: 10:54 AM CSN: [id number] [facility] 09-06-2023 CNPN Telephone (FVPRAD) ----- ROSA ALONZO ([id number]) 2000 F Date Time Provider Department 09/06/23 [...] Fully Assessed Prescriptions as of 09/06/2023 - eulaoh-snaietxt-sbzhjyx (CREON) 24,000-76,000 -120,000 unit delayed release capsule [...] Encounter Status:Closed by ISABELLE MENON on 09/06/23 [facility] EGD Study observation Narrat iveon 09-06-2023 [facility] HISTORY PHYSICALon HISTORY PHYSICAL HNO ID: [id number] Author: ISABELLE MENON MD Service: Gastroenterology Author [...] mouth once daily. 09/05/2023 at 1000 Yes pbifnh-xojapjhg-vluojss (CREON) 24,000-76,000 -120,000 unit delayed release capsule [...] DATE: September 06, 2023 TIME: 12:20 PM [facility] NURSING PROGon 09-06-2023 NURSING PROG HNO ID: [id number] Author: RICKIE GU RN Service: Nursing Author [...] Endo in satisfactory condition Rickie Gu RN [facility] NURSING PROG HNO ID: [id number] Author: RICKIE GU RN Service: Nursing Author [...] (RECOMMENDATION): None Electronically Signed By: Rickie Gu [facility] Upper EUSon 09-06-2023 Upper E[facility] Patient Name: Rosa Alonzo Procedure Date: 09/06/2023 12:16 PM Date of : 2000 Admit Type: Outpatient Age: 22 Room: [place] [address] Gender: Female Note Status: Finalized Attending MD: Isabelle Menon MD, [id number] Procedure: Upper EUS Indications: Abnormal abdominal/pelvic CT scan, Acute pancreatitis, 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 Chronic RUQ pain radiating to the back. RUQ US and HIDA scan with CCK normal. Pancreatitis age 14 of unclear aetiology. Providers: Isabelle Menon MD, Gwen Ornelas, RN, Chrissie Forbes, RN, Felix Vick, RN (Assisting Nurse) Patient Profile: This is [...] for cholecystectomy. 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 All rights reserved. The codes documented in this report are preliminary and upon pipe straightener review may be revised to meet current compliance requirements. Attending Participation: I personally performed the entire procedure. Scope In: 12:53:03 PM Scope Out: 1:22:36 PM MD Isabelle Cedeno MD 09/06/2023 3:29:47 PM This report has been signed electronically by Isabelle Menon MD Number of Addenda: 0 Note Initiated On: 09/06/2023 12:16 PM Estimated Blood Loss: Estimated blood loss: none. Normal [facility] CNCOon 07-30-2023 CNCO Letter Text Normal [facility] Christine 07-13-2023 ANA Telephone (LENA) ----- ROSA ALONZO ([id number]) 2000 F Date Time Provider Department 07/13/23 [...] schedule her EUS. Please call her at [phone]. Anabel Aguilar II 07/30/2023 11:20 AM Signed Attempted to call patient regarding scheduling EUS, no answer, left message for patient to call back to schedule. Anabel San Adm Asst II Anabel Aguilar II 07/30/2023 11:23 AM Signed Patient returned call, scheduled EUS , 09/06/2023 at [facility]. Anabel Beard Asst II Allergies As of Date: 07/13/2023 [...] EUS, OR TUBE INTERVENTIONS [GI2] Order #: [id number] FUTURE Prescriptions as of 07/30/2023 - clfttj-lgruxbey-fjjawzb (CREON) 24,000-76,000 -120,000 unit delayed release capsule [...] Photosensitivity [L56.8] 12/08/2022 Encounter Status:Closed by ANABEL AGUILAR II on 07/30/23 [facility] CTA ABD/PELV W IVCONon 07-05 CTA ABD/PELV W IVCON * * *Final Report* * * DATE OF EXAM: Jul 05 2023 11:20AM [facility] 0311 - CTA ABD/PELV W IVCON [...] fluid collection. Bones/Soft Tissues: No significant finding. Credit Risk Modeler (topogram) images: No additional findings. IMPRESSION: Likely [...] any questions regarding this interpretation, please call [phone]. If you are unable to reach us at the number above, please feel free to contact [facility] at [phone]. [id number] Normal [facility] CNPNon 06-25-2023 CNPN Telephone (RCTLO) ----- CLINTONSHIVAM NewberryCRESENCIO Watkins ([id number]) 2000 F Date Time Provider Department 06/25/23 LARGE HOPS PROCEDURE RM 15 RCTLO During your visit today, we recorded the following information about you: Isabelle Menon MD 06/25/2023 5:25 PM Signed Gisela: I wanted her to have CTA. Is this what was ordered? See the massage from [employer]. I am looking specifically for MALS and [...] Scans [[id number]] Prescriptions as of 06/26/2023 - kncbrr-nfkkynya-ykdhlog (CREON) 24,000-76,000 -120,000 unit delayed release capsule [...] Status:Closed by MCKENZIE HECK on 06/25/23 Normal [facility] Alanine aminotransferase [En zymatic activity/volume] in Serum or PlasmaOrdered By: Analia Holliday on 05-30-2023 ALT [Catalytic activity/Vol] 10 U/L Normal 7-52 [facility] Comment on above: Order Comment: Reaso n for Exam Well adult exam Performed By: #### V [id number], TSH3, CMP wRFX A1C, LIPID, CBC, FE PRO, [id number] #### [address] Albumin [Mass/volume] in Ser um or Plasma by Bromocresol green (BCG) dye binding methoOrdered By: Analia Holliday on 05-30-2023 Albumin BCG dye [Mass/Vol] 4.6 g/dL 3.5-5.7 [facility] Alkaline phosphatase [Enzyma tic activity/volume] in Serum or PlasmaOrdered By: Analia Holliday on 05-30-2023 ALP [Catalytic activity/Vol] 44 U/L Normal 34-104 [facility] Comment on above: Order Comment: Reaso n for Exam Well adult exam Performed By: #### V [id number], TSH3, CMP wRFX A1C, LIPID, CBC, FE PRO, [id number] #### [address] Aspartate aminotransferase [ Enzymatic activity/volume] in Serum or PlasmaOrdered By: Analia Holliday on 05-30-2023 AST [Catalytic activity/Vol] 16 U/L Normal 13-39 [facility] Comment on above: Order Comment: Reaso n for Exam Well adult exam Performed By: #### V [id number], TSH3, CMP wRFX A1C, LIPID, CBC, FE PRO, [id number] #### [address] Automated basophil %Ordered By: Analia Holliday on 05-30-2023 Basophils/100 WBC (Bld) 0.8 % Normal . [facility] Comment on above: Order Comment: Reaso n for Exam Well adult exam Performed By: #### V [id number], TSH3, CMP wRFX A1C, LIPID, CBC, FE PRO, [id number] #### [facility] [address] [place] [address] Automated basophil countOrde red By: Analia Holliday on 05-30-2023 Basophils (Bld) [#/Vol] 0.0 10*3/uL Normal 0.0-0.2 [facility] Comment on above: Order Comment: Reaso n for Exam Well adult exam Result Comment: PERF ORMED BY: [place] [address] PATHOLOGIST [place] MANAGER RY BUTTERFIELD M.D. Performed By: #### V [id number], TSH3, CMP wRFX A1C, LIPID, CBC, FE PRO, [id number] #### [address] Automated blood monocyte cou ntOrdered By: Analia Holliday on 05-30-2023 Monocytes (Bld) [#/Vol] 0.5 10*3/uL Normal 0.0-0.8 [facility] Comment on above: Order Comment: Reaso n for Exam Well adult exam Performed By: #### V [id number], TSH3, CMP wRFX A1C, LIPID, CBC, FE PRO, [id number] #### [facility] [address] Automated eosinophil %Ordere d By: Analia Holliday on 05-30-2023 Eosinophils/100 WBC (Bld) 3.8 % Normal . [facility] Comment on above: Order Comment: Reaso n for Exam Well adult exam Performed By: #### V [id number], TSH3, CMP wRFX A1C, LIPID, CBC, FE PRO, [id number] #### [facility] [address] [place] [address] Automated eosinophil countOr dered By: Analia Holliday on 05-30-2023 Eosinophils (Bld) [#/Vol] 0.2 10*3/uL Normal 0.0-0.45 [facility] Comment on above: Order Comment: Reaso n for Exam Well adult exam Performed By: #### V [id number], TSH3, CMP wRFX A1C, LIPID, CBC, FE PRO, [id number] #### [facility] [address] [place] [address] Automated monocyte %Ordered By: Analia Holliday on 05-30-2023 Monocytes/100 WBC (Bld) 9.5 % Normal . [facility] Comment on above: Order Comment: Reaso n for Exam Well adult exam Performed By: #### V [id number], TSH3, CMP wRFX A1C, LIPID, CBC, FE PRO, [id number] #### [facility] [address] [place] [address] Automated neutrophil %Ordere d By: Analia Holliday on 05-30-2023 Neutrophils/100 WBC (Bld) 46.6 % Normal . [facility] Comment on above: Order Comment: Reaso n for Exam Well adult exam Performed By: #### V [id number], TSH3, CMP wRFX A1C, LIPID, CBC, FE PRO, [id number] #### [facility] [address] Bilirubin.total [Mass/volume ] in Serum or PlasmaOrdered By: Analia Holliday on 05-30-2023 Bilirubin [Mass/Vol] 0.6 mg/dL Normal 0.3-1.0 [facility] Comment on above: Order Comment: Reaso n for Exam Well adult exam Performed By: #### V [id number], TSH3, CMP wRFX A1C, LIPID, CBC, FE PRO, [id number] #### [facility] [address] CMP with reflex to A1Con Albumin [Mass/Vol] 4.6 g/dL Normal 3.5-5.7 [facility] Comment on above: Order Comment: Reaso n for Exam Well adult exam Performed By: #### V [id number], TSH3, CMP wRFX A1C, LIPID, CBC, FE PRO, [id number] #### [facility] [address] [place] [address] GFR/1.73 sq M.predicted MDRD (S/P/Bld) [Vol rate/Area] mL/min/{1.73_m2} Normal [facility] Comment on above: Order Comment: Reaso n for Exam Well adult exam Performed By: #### V [id number], TSH3, CMP wRFX A1C, LIPID, CBC, FE PRO, [id number] #### [facility] [address] Calcium [Mass/volume] in Ser um or PlasmaOrdered By: Analia Holliday on 05-30-2023 Calcium [Mass/Vol] 9.5 mg/dL Normal 8.6-10.[address] [facility] Comment on above: Order Comment: Reaso n for Exam Well adult exam Performed By: #### V [id number], TSH3, CMP wRFX A1C, LIPID, CBC, FE PRO, [id number] #### [facility] [address] [place] [address] Carbon dioxide, total [Moles /volume] in Serum or PlasmaOrdered By: Analia Holliday on 05-30-2023 CO2 [Moles/Vol] 27.5 mmol/L Normal 21.0-31.0 [facility] Comment on above: Order Comment: Reaso n for Exam Well adult exam Performed By: #### V [id number], TSH3, CMP wRFX A1C, LIPID, CBC, FE PRO, [id number] #### [facility] [address] [place] [address] [place] Chloride [Moles/volume] in S leobardo or PlasmaOrdered By: Analia Holliday on 05-30-2023 Chloride [Moles/Vol] 106 mmol/L Normal 98-107 [facility] Comment on above: Order Comment: Reaso n for Exam Well adult exam Performed By: #### V [id number], TSH3, CMP wRFX A1C, LIPID, CBC, FE PRO, [id number] #### [facility] [address] [place] [address] [place] Cholesterol [Mass/volume] in Serum or PlasmaOrdered By: Analia Holliday on 05-30-2023 Cholesterol [Mass/Vol] 169 mg/dL Normal 140-200 [facility] Comment on above: Chol less than 200 m g/dl low riskChol 201-239 mg/dl borderline riskChol 240 mg/dl and greater high risk Order Comment: Reaso n for Exam Well adult exam Result Comment: Chol less than 200 mg/dl low risk Chol 201-239 mg/dl borderline risk Chol 240 mg/dl and greater high risk Performed By: #### V [id number], TSH3, CMP wRFX A1C, LIPID, CBC, FE PRO, [id number] #### [facility] [address] [place] [address] [place] Cholesterol in LDL Calc [Mas s/Vol]Ordered By: Analia Holliday on 05-30-2023 Cholesterol in LDL [Mass/Vol] 100 mg/dL 0-100 [facility] Comment on above: LDL ATP III CLASSIFI CATIONLDL less than 100 mg/dL OptimalLDL 100-129 mg/dL Near or above optimalLDL 130-159 mg/dL Borderline highLDL 160-189 mg/dL HighLDL greater than 189 mg/dL Very high Cholesterol in VLDL Calc [Ma ss/Vol]Ordered By: Analia Holliday on 05-30-2023 Cholesterol in VLDL [Mass/Vol] 8 mg/dL [facility] Complete Blood Count Auto Di ffon 05-30-2023 Mean Corpuscular HGB Conc 34.1 g/dL Normal 32.0-35.0 [facility] Comment on above: Order Comment: Reaso n for Exam Well adult exam Performed By: #### V [id number], TSH3, CMP wRFX A1C, LIPID, CBC, FE PRO, [id number] #### [facility] [address] NRBC% 0.1 /100{WBC} Normal 0-0.5 [facility] Comment on above: Order Comment: Reaso n for Exam Well adult exam Performed By: #### V [id number], TSH3, CMP wRFX A1C, LIPID, CBC, FE PRO, [id number] #### [facility] [address] [place] [address] Creatinine [Mass/volume] in Serum or PlasmaOrdered By: Analia Holliday on 05-30-2023 Creatinine [Mass/Vol] 0.66 mg/dL Normal 0.60-1.20 [facility] Comment on above: Order Comment: Reaso n for Exam Well adult exam Performed By: #### V [id number], TSH3, CMP wRFX A1C, LIPID, CBC, FE PRO, [id number] #### [facility] [address] [place] [address] Erythrocyte distribution wid th [Ratio] by Automated countOrdered By: Analia Holliday on 05-30-2023 Erythrocyte distribution width (RBC) [Ratio] 12.3 % Normal 11.9-15.3 [facility] Comment on above: Order Comment: Reaso n for Exam Well adult exam Performed By: #### V [id number], TSH3, CMP wRFX A1C, LIPID, CBC, FE PRO, [id number] #### [facility] [address] [place], [place] [id number] [place] Erythrocytes [#/volume] in B lood by Automated countOrdered By: Analia Holliday on 05-30-2023 RBC (Bld) [#/Vol] 4.30 10*6/uL Normal 3.60-5.00 [facility] Comment on above: Order Comment: Reaso n for Exam Well adult exam Performed By: #### V [id number], TSH3, CMP wRFX A1C, LIPID, CBC, FE PRO, [id number] #### [facility] [address] [place] [address] [place] FE PROon 05-30-2023 % Iron Saturation 33.2 % Normal 20-50 [facility] Comment on above: Order Comment: Reaso n for Exam Well adult exam Performed By: #### V [id number], TSH3, CMP wRFX A1C, LIPID, CBC, FE PRO, [id number] #### [facility] [address] [place] [address] [facility] Total Iron Binding Capacity 349 ug/dL Normal 255-450 [facility] Comment on above: Order Comment: Reaso n for Exam Well adult exam Performed By: #### V [id number], TSH3, CMP wRFX A1C, LIPID, CBC, FE PRO, [id number] #### [facility] [address] [place] [id number] [place] Ferritin [Mass/volume] in Se rum or PlasmaOrdered By: Analia Holliday on 05-30-2023 Ferritin [Mass/Vol] 38.7 ng/mL Normal 11.0-306.8 [facility] Comment on above: Order Comment: Reaso n for Exam Well adult exam Performed By: #### V [id number], TSH3, CMP wRFX A1C, LIPID, CBC, FE PRO, [id number] #### [facility] [address] [place] [address] [place] Folate [Mass/volume] in Seru m or PlasmaOrdered By: Analia Holliday on 05-30-2023 Folate [Mass/Vol] 23.0 ng/mL >5.9 [facility] Comment on above: Folate reference ran ge: >5.9 ng/mlThe WHO technical consultation on folate and vitamin [id number] has determined that folate concentrations lessthan 4 ng/ml are considered deficient. Glucose [Mass/volume] in Ser um or PlasmaOrdered By: Analia Holliday on 05-30-2023 Glucose [Mass/Vol] 89 mg/dL Normal 70-[address] [facility] Comment on above: Order Comment: Reaso n for Exam Well adult exam Performed By: #### V [id number], TSH3, CMP wRFX A1C, LIPID, CBC, FE PRO, [id number] #### [facility] [address] Hematocrit [Volume Fraction] of Blood by Automated countOrdered By: Analia Holliday on 05-30-2023 Hematocrit (Bld) [Volume fraction] 39.8 % Normal 34.0-46.4 [facility] Comment on above: Order Comment: Reaso n for Exam Well adult exam Performed By: #### V [id number], TSH3, CMP wRFX A1C, LIPID, CBC, FE PRO, [id number] #### [facility] [address] [place] [address] Hemoglobin [Mass/volume] in BloodOrdered By: Analia Holliday on 05-30-2023 Hemoglobin (Bld) [Mass/Vol] 13.6 g/dL Normal 11.8-15.4 [facility] Comment on above: Order Comment: Reaso n for Exam Well adult exam Performed By: #### V [id number], TSH3, CMP wRFX A1C, LIPID, CBC, FE PRO, [id number] #### [facility] [address] [place] [address] [place] Iron [Mass/volume] in Serum or PlasmaOrdered By: Analia Holliday on 05-30-2023 Iron [Mass/Vol] 116 ug/dL Normal 50-212 [facility] Comment on above: Order Comment: Reaso n for Exam Well adult exam Performed By: #### V [id number], TSH3, CMP wRFX A1C, LIPID, CBC, FE PRO, [id number] #### [facility] [address] [place] [id number] [place] Iron binding capacity [Mass/ volume] in Serum or PlasmaOrdered By: Analia Holliday on 05-30-2023 Iron binding capacity [Mass/Vol] 349 ug/dL 255-450 [facility] Iron saturation [Mass Fracti on] in Serum or PlasmaOrdered By: Analia Holliday on 05-30-2023 Iron saturation [Mass fraction] 33.2 % 20-50 [facility] Leukocytes [#/volume] correc shena for nucleated erythrocytes in Blood by Automated counOrdered By: Analia Holliday on 05-30-2023 WBC corrected for nucl RBC Auto (Bld) [#/Vol] 5.0 10*3/uL 3.8-11.6 [facility] Leukocytes [#/volume] in Blo od by Automated countOrdered By: Analia Holliday on 05-30-2023 WBC (Bld) [#/Vol] 5.0 10*3/uL Normal 3.8-11.[address] [facility] Comment on above: Order Comment: Reaso n for Exam Well adult exam Performed By: #### V [id number], TSH3, CMP wRFX A1C, LIPID, CBC, FE PRO, [id number] #### [facility] [address] [place] [id number] [place] Lipid Panelon 05-30-2023 LDL Cholesterol,Calculate d 100 mg/dL Normal 0-100 [facility] Comment on above: Order Comment: Reaso n for Exam Well adult exam Result Comment: LDL ATP III CLASSIFICATION LDL less than 100 mg/dL Optimal LDL 100-129 mg/dL Near or above optimal LDL 130-159 mg/dL Borderline high LDL 160-189 mg/dL High LDL greater than 189 mg/dL Very high Performed By: #### V [id number], TSH3, CMP wRFX A1C, LIPID, CBC, FE PRO, [id number] #### [facility] [address] [place] [address] [place] Triglyceride w/Reflex 42 mg/dL Normal 0-149 [facility] Comment on above: Order Comment: Reaso n for Exam Well adult exam Result Comment: TRIG ATP III CLASSIFICATION TRIG less than 150 mg/dL Normal TRIG 150-199 mg/dL Borderline high TRIG 200-500 mg/dL High TRIG greater than 500 mg/dL Very high Standard traceable to the Center for Disease Conrtrol and Prevention (CDC) test method. Performed By: #### V [id number], TSH3, CMP wRFX A1C, LIPID, CBC, FE PRO, [id number] #### [facility] [address] VLDL CHOLESTEROL 8 mg/dL Normal [facility] Comment on above: Order Comment: Reaso n for Exam Well adult exam Performed By: #### V [id number], TSH3, CMP wRFX A1C, LIPID, CBC, FE PRO, [id number] #### [address] Lymphocytes [#/volume] in Bl ood by Automated countOrdered By: Analia Holliday on 05-30-2023 Lymphocytes (Bld) [#/Vol] 2.0 10*3/uL Normal 1.00-4.8 [facility] Comment on above: Order Comment: Reaso n for Exam Well adult exam Performed By: #### V [id number], TSH3, CMP wRFX A1C, LIPID, CBC, FE PRO, [id number] #### [place] [address] [place] Lymphocytes/100 leukocytes i n Blood by Automated countOrdered By: Analia Holliday on 05-30-2023 Lymphocytes/100 WBC (Bld) 39.3 % Normal . [facility] Comment on above: Order Comment: Reaso n for Exam Well adult exam Performed By: #### V [id number], TSH3, CMP wRFX A1C, LIPID, CBC, FE PRO, [id number] #### [place] [address] [place] MCH [Entitic mass] by Automa shena countOrdered By: Analia Holliday on 05-30-2023 MCH (RBC) [Entitic mass] 31.6 pg Normal 24.7-34.3 [facility] Comment on above: Order Comment: Reaso n for Exam Well adult exam Performed By: #### V [id number], TSH3, CMP wRFX A1C, LIPID, CBC, FE PRO, [id number] #### [facility] [address] [place] [address] MCHC Auto (RBC) [Mass/Vol]Or dered By: Analia Holliday on 05-30-2023 MCHC (RBC) [Mass/Vol] 34.1 g/dL 32.0-35.0 [facility] MCV [Entitic volume] by Auto mated countOrdered By: Analia Holliday on 05-30-2023 MCV (RBC) [Entitic vol] 92.6 fL Normal 80-100 [facility] Comment on above: Order Comment: Reaso n for Exam Well adult exam Performed By: #### V [id number], TSH3, CMP wRFX A1C, LIPID, CBC, FE PRO, [id number] #### [facility] [address] [place] [address] Neutrophils [#/volume] in Bl ood by Automated countOrdered By: Analia Holliday on 05-30-2023 Neutrophils (Bld) [#/Vol] 2.3 10*3/uL Normal 1.8-7.7 [facility] Comment on above: Order Comment: Reaso n for Exam Well adult exam Performed By: #### V [id number], TSH3, CMP wRFX A1C, LIPID, CBC, FE PRO, [id number] #### [address] No Panel InformationOrdered By: Analia Holliday on 05-30-2023 Estimated GFR (CKD-EPI) > 60.0 mL/Min [facility] Creatinine Clearance (Chem N/A [facility] Nucleated erythrocytes [Pres ence] in Blood by Automated countOrdered By: Analia Holliday on 05-30-2023 Nucleated RBC Auto Ql (Bld) 0.1 /100{WBC} 0-0.5 [facility] Platelet mean volume [Entiti c volume] in Blood by Automated countOrdered By: Analia Holliday on 05-30-2023 Platelet mean volume (Bld) [Entitic vol] 9.7 fL Normal 6.3-10.7 [facility] Comment on above: Order Comment: Reaso n for Exam Well adult exam Performed By: #### V [id number], TSH3, CMP wRFX A1C, LIPID, CBC, FE PRO, [id number] #### [facility] [address] [place] [address] [place] Platelets [#/volume] in Bloo d by Automated countOrdered By: Analia Holliday on 05-30-2023 Platelets (Bld) [#/Vol] 198 10*3/uL Normal 150-450 [facility] Comment on above: Order Comment: Reaso n for Exam Well adult exam Performed By: #### V [id number], TSH3, CMP wRFX A1C, LIPID, CBC, FE PRO, [id number] #### [facility] [address] [place] [id number] [facility] Potassium [Moles/volume] in Serum or PlasmaOrdered By: Analia Holliday on 05-30-2023 Potassium [Moles/Vol] 4.2 mmol/L Normal 3.5-5.1 [facility] Comment on above: Order Comment: Reaso n for Exam Well adult exam Performed By: #### V [id number], TSH3, CMP wRFX A1C, LIPID, CBC, FE PRO, [id number] #### [facility] [address] [place] [id number] [place] Protein [Mass/volume] in Ser um or PlasmaOrdered By: Analia Holliday on 05-30-2023 Protein [Mass/Vol] 7.1 g/dL Normal 6.4-8.[address] [facility] Comment on above: Order Comment: Reaso n for Exam Well adult exam Performed By: #### V [id number], TSH3, CMP wRFX A1C, LIPID, CBC, FE PRO, [id number] #### [facility] [address] [place] [address] [facility] Serum globulin measurement b y calculation (mass/volume)Ordered By: Analia Holliday on 05-30-2023 Globulin (S) [Mass/Vol] 2.5 g/dL Normal [facility] Comment on above: Order Comment: Reaso n for Exam Well adult exam Performed By: #### V [id number], TSH3, CMP wRFX A1C, LIPID, CBC, FE PRO, [id number] #### [facility] [address] Serum or plasma albumin/glob ulin mass ratioOrdered By: Analia Holliday on 05-30-2023 Albumin/Globulin [Mass ratio] 1.8 {ratio} Normal [facility] Comment on above: Order Comment: Reaso n for Exam Well adult exam Performed By: #### V [id number], TSH3, CMP wRFX A1C, LIPID, CBC, FE PRO, [id number] #### [facility] [address] Serum or plasma anion gap de terminationOrdered By: Analia Holliday on 05-30-2023 Anion gap [Moles/Vol] 8.7 mmol/L Normal 6.0-15.0 [facility] Comment on above: Order Comment: Reaso n for Exam Well adult exam Performed By: #### V [id number], TSH3, CMP wRFX A1C, LIPID, CBC, FE PRO, [id number] #### [facility] [address] Serum or plasma high density lipoprotein (HDL) cholesterol measurementOrdered By: Analai Holliday on 05-30-2023 Cholesterol in HDL [Mass/Vol] 61 mg/dL Normal 23-92 [facility] Comment on above: HDL CHOL ATP-III CLA SSIFICATION Cardiovascular RiskHDL > or equal to 60 mg/dL LOWHDL < 40 mg/dL HIGH Order Comment: Reaso n for Exam Well adult exam Result Comment: HDL CHOL ATP-III CLASSIFICATION Cardiovascular Risk HDL > or equal to 60 mg/dL LOW HDL < 40 mg/dL HIGH Performed By: #### V [id number], TSH3, CMP wRFX A1C, LIPID, CBC, FE PRO, [id number] #### [facility] [address] Serum or plasma total choles terol/high density lipoprotein (HDL) cholesterol mass ratOrdered By: Analia Holliday on 05-30-2023 Cholesterol.total/Cho lesterol in HDL [Mass ratio] 2.8 {ratio} Normal <5.0 [facility] Comment on above: Order Comment: Reaso n for Exam Well adult exam Performed By: #### V [id number], TSH3, CMP wRFX A1C, LIPID, CBC, FE PRO, [id number] #### [facility] [address] [place] [id number] [place] Sodium [Moles/volume] in Ser um or PlasmaOrdered By: Analia Holliday on 05-30-2023 Sodium [Moles/Vol] 138 mmol/L Normal 136-[address] [facility] Comment on above: Order Comment: Reaso n for Exam Well adult exam Performed By: #### V [id number], TSH3, CMP wRFX A1C, LIPID, CBC, FE PRO, [id number] #### [facility] [address] [place] [id number] [place] Thyrotropin [Units/volume] i n Serum or PlasmaOrdered By: Analia Holliday on 05-30-2023 TSH Qn 0.95 m[IU]/L Normal 0.45-5.33 [facility] Comment on above: Order Comment: Reaso n for Exam Well adult exam Performed By: #### V [id number], TSH3, CMP wRFX A1C, LIPID, CBC, FE PRO, [id number] #### [facility] [address] [place] [id number] [place] Transferrin [Mass/volume] in Serum or PlasmaOrdered By: Analia Holliday on 05-30-2023 Transferrin [Mass/Vol] 249 mg/dL Normal 203-362 [facility] Comment on above: Order Comment: Reaso n for Exam Well adult exam Performed By: #### V [id number], TSH3, CMP wRFX A1C, LIPID, CBC, FE PRO, [id number] #### [facility] [address] [place] [id number] [place] Triglyceride [Mass/volume] i n Serum or PlasmaOrdered By: Analia Holliday on 05-30-2023 Triglyceride [Mass/Vol] 42 mg/dL 0-149 [facility] Comment on above: TRIG ATP III CLASSIF ICATIONTRIG less than 150 mg/dL NormalTRIG 150-199 mg/dL Borderline highTRIG 200-500 mg/dL High TRIG greater than 500 mg/dL Very highStandard traceable to the Center for Disease Conrtrol and Prevention (CDC) test method. Urea nitrogen [Mass/volume] in Serum or PlasmaOrdered By: Analia Holliday on 05-30-2023 Urea nitrogen [Mass/Vol] 12 mg/dL Normal 7-25 [facility] Comment on above: Order Comment: Reaso n for Exam Well adult exam Performed By: #### V [id number], TSH3, CMP wRFX A1C, LIPID, CBC, FE PRO, [id number] #### [facility] [address] [place] [address] [facility] Vit. B12/Folate Profileon Folate 23.0 ng/mL Normal >5.9 [facility] Comment on above: Order Comment: Reaso n for Exam Well adult exam Result Comment: Pina te reference range: >5.9 ng/ml The WHO technical consultation on folate and vitamin b12 deficiencies has determined that folate concentrations less than 4 ng/ml are considered deficient. Performed By: #### V [id number], TSH3, CMP wRFX A1C, LIPID, CBC, FE PRO, [id number] #### [facility] [address] [place] [id number] [facility] Vitamin B12 ser/plasOrdered By: Analia Holliday on 05-30-2023 Cobalamin (Vitamin B12) [Mass/Vol] 630 pg/mL Normal 180-914 [facility] Comment on above: Order Comment: Reaso n for Exam Well adult exam Performed By: #### V [id number], TSH3, CMP wRFX A1C, LIPID, CBC, FE PRO, [id number] #### [facility] [address] [place] [address] [place] Vitamin D 25 Hydroxy Totalon 05-30-2023 Vitamin D 25 Hydroxy Total 27.7 ng/mL Low 30-100 [facility] Comment on above: Order Comment: Reaso n for Exam Well adult exam Result Comment: ANN MARIE MIN D STATUS 25([place])VITAMIN D RANGE (ng/mL) Deficient <20 Insufficient 20 to <30 Sufficient 30 to 100 Reference: Chichi MADDOX,ManpreetDoe Ordoñez et al. Evaluation,treatment, and prevention of vitamin D deficiency; an Endocrine Society clinical practice guideline. JCEM. 2010; 96(7):1911-30. PERFORMED BY: [place] [address] PATHOLOGIST [place] MANAGER RY BUTTERFIELD M.D. Performed By: #### V [id number], TSH3, CMP wRFX A1C, LIPID, CBC, FE PRO, [id number] #### [address] Vitamin D+Metabolites [Mass/ volume] in Serum or PlasmaOrdered By: Analia Holliday on 05-30-2023 Vitamin D+Metabolites [Mass/Vol] 27.7 ng/mL 30-100 [facility] Comment on above: VITAMIN D STATUS 25( [place])VITAMIN D RANGE (ng/mL) Deficient <20 Insufficient 20 to <30Sufficient 30 to 100Reference: Manpreet Martinez, Doe COLEMAN, et al. Evaluation,treatment, and prevention of vitamin D deficiency; an Endocrine Society clinical practice guideline. JCEM. 2010; 96(7):1911-30. [facility] HEALTHon 04-13-2023 [facility] HNO ID: [id number] Author: Yessi Adkins acid pumper Service: Radiology Author Type: Foundry Helper Type: Allied Health Filed: 04/13/2023 3:14 PM [...] Exam(s) Completed: Body: Pancreas/Biliary SIGNATURE: Yessi Adkins acid pumper PATIENT NAME: Rosa Alonzo DATE: April 13, 2023 TIME: 3:13 PM Normal [facility] MR Abdomen WO and W contrast Eddie 04-13-2023 IMPRESSION: No MR findings of acute or chronic pancreatitis. No pancreatic divisum. Staff Counselor: FRANCISCO Transcribe Date/Time: Apr 13 2023 3:30P Dictated by : ERIC VILLAR MD This examination was interpreted and the report reviewed and electronically signed by: ERIC VILLAR MD on Apr 13 2023 3:50PM [facility] RADIOLOGY * * *Final Report* * * DATE OF EXAM: Apr 13 2023 3:23PM [facility] 0689 - MRI ABDOMEN WO/W [...] ascites. Osseous structures: No aggressive osseous lesions. [facility] Provider, Letty Best - 04/13/2023 * * *Final Report* * * DATE OF EXAM: Apr 13 2023 3:23PM [facility] 0689 - MRI ABDOMEN WO/W [...] ascites. Osseous structures: No aggressive osseous lesions. IMPRESSION IMPRESSION: No MR findings of acute or chronic pancreatitis. No pancreatic divisum. Staff Counselor: [facility] Transcribe Date/Time: Apr 13 2023 3:30P Dictated by : ERIC VILLAR MD This examination was interpreted and the report reviewed and electronically signed by: ERIC VILLAR MD on Apr 13 2023 3:50PM EST [facility] Radiology Study observation (narrative) [facility] MR Abdomen WO and W contrast IVOrdered By: [facility] Provider on 04-13-2023 [facility] MRI ABDOMEN WO/W IVCONon MRI ABDOMEN WO/W IVCON * * *Final Report* * * DATE OF EXAM: Apr 13 2023 3:23PM [facility] 0689 - MRI ABDOMEN WO/W [...] acute or chronic pancreatitis. No pancreatic divisum. Staff Counselor: [facility] Transcribe Date/Time: Apr 13 2023 3:30P Dictated by : ERIC VILLAR MD This examination was interpreted and the report reviewed and electronically signed by: ERIC VILLAR MD on Apr 13 2023 3:50PM EST [id number] [facility] 04-12-2023 [facility] Telephone ([facility]) ----- ROSA ALONZO ([id number]) 2000 F Date Time Provider Department 04/12[facility]23 [facility] During your visit today, we recorded [...] mouth three times daily with meals. - padadc-geijblse-wsoiqqq (ZENPEP) 40,000-126,000- 168,000 unit delayed release capsule [...] Status:Closed by SALMA SIMPSON on 04/12/23 Normal [facility] NM HEPATOBILIARY SCAN W EFon 12-01-2022 NM [...] DARA CEDILLO Date: 2022-12-01 13:53 Normal [facility] OVA AND PARASITE EXAMINATION on 11-13-2022 Ova + Parasite Exam Final report Normal [facility] Comment on above: Result Comment: Thes e results were obtained using wet preparation(s) and trichrome stained smear. This test does not include testing for Cryptosporidium parvum, Cyclospora, or Microsporidia. Performed By: #### O VAPE #### [facility] [address] [place] [address] Dr. Timi Prater Result 1 Comment Normal [facility] Comment on above: Result Comment: No o va, cysts, or parasites seen. . One negative specimen does not rule out the possibility of a parasitic infection. Performed By: #### O VAPE #### [facility] [address] [address] [address] Timi Prater AMYLASEon 11-04-2022 Amylase [Catalytic activity/Vol] 39 U/L Normal 25-115 [facility] Comment on above: Performed By: #### O VAPE #### [facility] [address] [address] [address] Timi Prater CBC AUTO DIFFon 11-04-2022 BASO # 0.1 103/ul Normal 0.0-0.1 [facility] Comment on above: Performed By: #### C ALPOO #### [facility] [address] [address] [address] Tiim Prater Basophils/100 WBC (Bld) 1.1 % Normal 0.2-2.0 [facility] Comment on above: Performed By: #### C ALPOO #### [facility] [address] [place] [address] Dr. Timi Prater EO # 0.2 103/ul Normal 0.0-0.7 [facility] Comment on above: Performed By: #### C ALPOO #### [facility] [address] [place] [address] Dr. Timi Prater Eosinophils/100 WBC (Bld) 3.5 % Normal 0.9-7.0 [facility] Comment on above: Performed By: #### C ALPOO #### [facility] [address] [place] [address] Dr. Timi Prater Erythrocyte distribution width (RBC) [Ratio] 11.5 % Normal 11.0-15.0 [facility] Comment on above: Performed By: #### C ALPOO #### [facility] [address] [place] [address] Dr. Timi Prater Hematocrit (Bld) [Volume fraction] 39.8 % Normal 36.0-48.0 [facility] Comment on above: Performed By: #### C ALPOO #### [facility] [address] [place] [address] Dr. Timi Prater Hemoglobin (Bld) [Mass/Vol] 13.7 g/dL Normal 12.0-16.0 [facility] Comment on above: Performed By: #### C ALPOO #### [facility] [address] [place] [address] Dr. Timi Prater IG # 0.01 10e3/ul Normal 0.00-0.03 [facility] Comment on above: Performed By: #### C ALPOO #### [facility] [address] [place] [address] Dr. Timi Prater IG % 0.2 % Normal 0.0-0.5 [facility] Comment on above: Performed By: #### C ALPOO #### [facility] [address] [place] [address] Dr. Timi Prater LYMPH # 2.4 103/ul Normal 1.2-3.8 [facility] Comment on above: Performed By: #### C ALPOO #### [facility] [address] [place] [address] Dr. Timi Prater Lymphocytes/100 WBC (Bld) 53.1 % Normal 20.5-60.0 [facility] Comment on above: Performed By: #### C ALPOO #### [facility] [address] [place] [address] Dr. Timi Prater MANUAL DIFF REQ NO Normal [facility] Comment on above: Performed By: #### C ALPOO #### [facility] [address] [place] [address] Dr. Timi Prater MCH (RBC) [Entitic mass] 31.6 pg Normal 26.7-34.0 [facility] Comment on above: Performed By: #### C ALPOO #### [facility] [address] [place] [address] Dr. Timi Prater MCHC (RBC) [Mass/Vol] 34.4 g/dL Normal 29.9-35.2 [facility] Comment on above: Performed By: #### C ALPOO #### [facility] [address] [place] [address] Dr. Timi Prater MCV (RBC) [Entitic vol] 91.7 fL Normal 81.0-99.0 [facility] Comment on above: Performed By: #### C ALPOO #### [facility] [address] [place] [address] Dr. Timi Prater MONO # 0.4 103/ul Normal 0.3-0.8 [facility] Comment on above: Performed By: #### C ALPOO #### [facility] [address] [place] [address] Dr. Timi Prater Monocytes/100 WBC (Bld) 8.1 % Normal 1.7-12.0 [facility] Comment on above: Performed By: #### C ALPOO #### [facility] [address] [place] [address] Dr. Timi Prater NEUT # 1.6 103/ul Normal 1.4-6.5 [facility] Comment on above: Performed By: #### C ALPOO #### [facility] [address] [place] [address] Dr. Timi Prater Neutrophils/100 WBC (Bld) 34.0 % Critically low 43.0-75.0 [facility] Comment on above: Performed By: #### C ALPOO #### [facility] [address] [place] [address] Dr. Timi Prater Platelet mean volume (Bld) [Entitic vol] 10.7 fL Normal 9.5-13.5 [facility] Comment on above: Performed By: #### C ALPOO #### [facility] [address] [place] [address] Dr. Timi Prater PLT 192 103/ul Normal 150-450 [facility] Comment on above: Performed By: #### C ALPOO #### [facility] [address] [place] [address] Dr. Timi Prater RBC 4.34 106/ul Normal 4.20-5.40 [facility] Comment on above: Performed By: #### C ALPOO #### [facility] [address] [place] [address] Dr. Timi Prater WBC 4.6 103/ul Normal 4.0-11.0 [facility] Comment on above: Performed By: #### C ALPOO #### [facility] [address] [place] [address] Dr. Timi Prater GI PANEL (PCR)on 11-04-2022 Adenovirus F 40/41 Not detected Normal NOT DETECTED [facility] Comment on above: Performed By: #### C DIFPOC #### [facility] [address] [place] [address] Dr. Timi Prater Astrovirus Not detected Normal NOT DETECTED [facility] Comment on above: Performed By: #### C DIFPOC #### [facility] [address] [place] [address] Dr. Timi Guevara. Diff toxin A/B Not detected Normal NOT DETECTED [facility] Comment on above: Performed By: #### C DIFPOC #### [facility] [address] [place] [address] Dr. Timi Prater Campylobacter Not detected Normal NOT DETECTED [facility] Comment on above: Performed By: #### C DIFPOC #### [facility] [address] [place] [address] Dr. Timi Prater Cryptosporidium Not detected Normal NOT DETECTED [facility] Comment on above: Performed By: #### C DIFPOC #### [facility] [address] [place] [address] Dr. Timi Prater Cyclos. Cayetanensis Not detected Normal NOT DETECTED [facility] Comment on above: Performed By: #### C DIFPOC #### [facility] [address] [place] [address] Dr. Timi Prater E. Coli O157 Not Applicable Normal Not Applicable [facility] Comment on above: Performed By: #### C DIFPOC #### [facility] [address] [place] [address] Dr. Timi Prater E. histolytica Not detected Normal NOT DETECTED [facility] Comment on above: Performed By: #### C DIFPOC #### [facility] [address] [place] [address] Dr. Timi Prater EAEC Not detected Normal NOT DETECTED [facility] Comment on above: Performed By: #### C DIFPOC #### [facility] [address] [place] [address] Dr. Timi Prater EIEC Not detected Normal NOT DETECTED [facility] Comment on above: Performed By: #### C DIFPOC #### [facility] [address] [place] [address] Dr. Timi Prater EPEC Not detected Normal NOT DETECTED [facility] Comment on above: Performed By: #### C DIFPOC #### [facility] [address] [place] [address] Dr. Timi Prater ETEC Not detected Normal NOT DETECTED [facility] Comment on above: Performed By: #### C DIFPOC #### [facility] [address] [place] [address] Dr. Timi Laura Lambqianaa Not detected Normal NOT DETECTED [facility] Comment on above: Performed By: #### C DIFPOC #### [facility] [address] [address] [address] Timi WHARTON CONTROLS PASSED Normal [facility] Comment on above: Performed By: #### C DIFPOC #### [facility] [address] [address] [address] Timi QUINTANILLA [facility] HEADER GI PANEL BACTERIA Normal [facility] Comment on above: Performed By: #### C DIFPOC #### [facility] [address] [address] [address] Timi FAJARDO ECOLI GI PANEL DIARRHEAGEN IC E.COLI / SHIGELLA Normal [facility] Comment on above: Performed By: #### C DIFPOC #### [facility] [address] [place] [address] Dr. Timi FAJARDO INFO SEE BELOW Normal [facility] Comment on above: Result Comment: EAEC - Enteroaggregative E. Coli EPEC- Enteropathogenic E. Coli ETEC- Enterotoxigenic E. Coli lt/st STEC- Shigella-like toxin-producing E. Coli stx1/stx2 EIEC- Shigella/Enteroinvasive E. Coli Performed By: #### C DIFPOC #### [facility] [address] [place] [address] Dr. Timi FAJARDO PARASITES GI PANEL PARASITES Normal [facility] Comment on above: Performed By: #### C DIFPOC #### [facility] [address] [address] [address] Timi FAJARDO VIRUS GI PANEL VIRUSES Normal [facility] Comment on above: Performed By: #### C DIFPOC #### [facility] [address] [address] [address] Timi Prater Norovirus GI/GII Not detected Normal NOT DETECTED [facility] Comment on above: Performed By: #### C DIFPOC #### [facility] [address] [address] [address] Timi Prater P. Shigelloides Not detected Normal NOT DETECTED [facility] Comment on above: Performed By: #### C DIFPOC #### [facility] [address] [place] [address] Dr. Timi Prater Rotavirus A Not detected Normal NOT DETECTED [facility] Comment on above: Performed By: #### C DIFPOC #### [facility] [address] [place] [address] Dr. Timi Prater Salmonella Not detected Normal NOT DETECTED [facility] Comment on above: Performed By: #### C DIFPOC #### [facility] [address] [place] [address] Dr. Timi Prater Sapovirus Not detected Normal NOT DETECTED [facility] Comment on above: Performed By: #### C DIFPOC #### [facility] [address] [place] [address] Dr. Timi Prater STEC Not detected Normal NOT DETECTED [facility] Comment on above: Performed By: #### C DIFPOC #### [facility] [address] [place] [address] Dr. Timi Prater Vibrio Not detected Normal NOT DETECTED [facility] Comment on above: Performed By: #### C DIFPOC #### [facility] [address] [place] [address] Dr. Timi Prater Vibrio Cholera Not detected Normal NOT DETECTED [facility] Comment on above: Performed By: #### C DIFPOC #### [facility] [address] [place] [address] Dr. Timi Prater Y. Enterocolitica Not detected Normal NOT DETECTED [facility] Comment on above: Performed By: #### C DIFPOC #### [facility] [address] [place] [address] Dr. Timi Prater LIPASEon 11-04-2022 Lipase [Catalytic activity/Vol] 88.0 U/L Normal 73.0-393.0 [facility] Comment on above: Performed By: #### O VAPE #### [facility] [address] [place] [address] Dr. Timi Prater OCC BLD IMMUNO SCREENon 10-21 OCCULT BLOOD Negative Normal NEGATIVE [facility] Comment on above: Performed By: #### C ALPOO #### [facility] [address] [place] [address] Dr. Timi Prater PROF 14(COMP METB)on 023 Albumin [Mass/Vol] 4.2 g/dL Normal 3.4-5.0 [facility] Comment on above: Performed By: #### C ALPOO #### [facility] [address] [place] [address] Dr. Timi Prater Albumin/Globulin [Mass ratio] 1.2 {ratio} Normal [facility] Comment on above: Performed By: #### C ALPOO #### [facility] [address] [place] [address] Dr. Timi Prater ALP [Catalytic activity/Vol] 55 U/L Normal 46-116 [facility] Comment on above: Performed By: #### C ALPOO #### [facility] [address] [place] [address] Dr. Timi Prater ALT [Catalytic activity/Vol] 14 U/L Normal 14-59 [facility] Comment on above: Performed By: #### C ALPOO #### [facility] [address] [place] [address] Dr. Timi Prater Anion gap [Moles/Vol] 11.9 mmol/L Normal [facility] Comment on above: Performed By: #### C ALPOO #### [facility] [address] [place] [address] Dr. Timi Prater AST [Catalytic activity/Vol] 13 U/L Critically low 15-37 [facility] Comment on above: Performed By: #### C ALPOO #### [facility] [address] [place] [address] Dr. Timi Prater Bilirubin [Mass/Vol] 0.6 mg/dL Normal 0.2-1.0 [facility] Comment on above: Performed By: #### C ALPOO #### [facility] [address] [place] [address] Dr. Timi Prater Calcium [Mass/Vol] 9.4 mg/dL Normal 8.5-10.1 [facility] Comment on above: Performed By: #### C ALPOO #### [facility] [address] [address] [address] Timi Prater Chloride [Moles/Vol] 104 mmol/L Normal 98-107 [facility] Comment on above: Performed By: #### C ALPOO #### [facility] [address] [address] [address] Timi Prater CO2 [Moles/Vol] 26.6 mmol/L Normal 21.0-32.0 [facility] Comment on above: Performed By: #### C ALPOO #### [facility] [address] [place] [address] Dr. Timi Prater Creatinine [Mass/Vol] 0.85 mg/dL Normal 0.55-1.02 [facility] Comment on above: Performed By: #### C ALPOO #### [facility] [address] [place] [address] Dr. Timi Parter EGFR-AF [place] >60 Normal >=60 [facility] Comment on above: Performed By: #### C ALPOO #### [facility] [address] [place] [address] Dr. Timi Prater EGFR-NON AF [place] >60 Normal >=60 [facility] Comment on above: Performed By: #### C ALPOO #### [facility] [address] [place] [address] Dr. Timi Prater Globulin (S) [Mass/Vol] 3.6 g/dL Normal [facility] Comment on above: Performed By: #### C ALPOO #### [facility] [address] [place] [address] Dr. Timi Prater Glucose [Mass/Vol] 100 mg/dL Normal 74-106 [facility] Comment on above: Performed By: #### C ALPOO #### [facility] [address] [place] [address] Dr. Timi Prater Potassium [Moles/Vol] 3.5 mmol/L Normal 3.5-5.1 [facility] Comment on above: Performed By: #### C ALPOO #### [facility] [address] [address] [address] Timi Prater Protein [Mass/Vol] 7.8 g/dL Normal 6.4-8.2 [facility] Comment on above: Performed By: #### C ALPOO #### [facility] [address] [address] [address] Timi Prater Sodium [Moles/Vol] 139 mmol/L Normal 136-145 [facility] Comment on above: Performed By: #### C ALPOO #### [facility] [address] [address] [address] Timi Prater Urea nitrogen [Mass/Vol] 13.0 mg/dL Normal 7.0-18.0 [facility] Comment on above: Performed By: #### C ALPOO #### [facility] [address] [address] [address] Timi Prater Urea nitrogen/Creatinine [Mass ratio] 15.3 mg/mg Normal [facility] Comment on above: Performed By: #### C ALPOO #### [facility] [address] [place] [address] Dr. Timi Prater C. DIFF PCRon 11-03-2022 C. DIFFICILE PCR Negative Normal NEGATIVE [facility] Comment on above: Performed By: #### T HYEDUARDO #### [facility] [address] [place] [address] Dr. Timi Prater Orders Onlyon 10-31-2022 Orders Only [id number] Rosa Alonzo 2000 F Date Provider Department Center 10/31/2022 [id number], HISTORICAL MP [facility] No family history on file Normal [facility] PANCREATIC ELASTASE FECALon 10-31-2022 Pancreatic Elastase, Fecal 253 ug Elast./g Normal >200 [facility] Comment on above: Result Comment: Tia re Pancreatic Insufficiency: <100 Moderate Pancreatic Insufficiency: 100 - 200 Normal: >200 Performed By: #### C ALPOO #### [facility] [address] [place] [address] Dr. Timi Prater US SINGLE QUAD RT [...] DARA SAVAGE Date: 2022-10-31 08:39 Normal [facility] Orders Onlyon 10-23-2022 Orders Only [id number] Rosa Alonzo 2000 F Date Provider Department Center 10/23/2022 [id number], HISTORICAL MP [facility] No family history on file Normal [facility] CBC AUTO DIFFon 10-20-2022 BASO # 0.1 103/ul Normal 0.0-0.1 [facility] Comment on above: Performed By: #### C BC #### [facility] [address] [address] [address] Timi Prater Basophils/100 WBC (Bld) 0.9 % Normal 0.2-2.0 [facility] Comment on above: Performed By: #### C BC #### [facility] [address] [address] [address] Timi Prater EO # 0.1 103/ul Normal 0.0-0.7 [facility] Comment on above: Performed By: #### C BC #### [facility] [address] [address] [address] Timi Prater Eosinophils/100 WBC (Bld) 2.6 % Normal 0.9-7.0 [facility] Comment on above: Performed By: #### C BC #### [facility] [address] [place] [address] Dr. Timi Prater Erythrocyte distribution width (RBC) [Ratio] 11.9 % Normal 11.0-15.0 [facility] Comment on above: Performed By: #### C BC #### [facility] Laboratory [address] [place] [address] Dr. Timi Prater Hematocrit (Bld) [Volume fraction] 41.0 % Normal 36.0-48.0 [facility] [place] Comment on above: Performed By: #### C BC #### [facility] [address] [place] [address] Dr. Timi Prater Hemoglobin (Bld) [Mass/Vol] 14.2 g/dL Normal 12.0-16.0 [facility] [place] Comment on above: Performed By: #### C BC #### [facility] [address] [place] [address] Dr. Timi Prater IG # 0.02 10e3/ul Normal 0.00-0.03 [facility] [place] Comment on above: Performed By: #### C BC #### [facility] [address] [place] [address] Dr. Timi Prater IG % 0.4 % Normal 0.0-0.5 [facility] [place] Comment on above: Performed By: #### C BC #### [facility] [address] [place] [address] Dr. Timi Prater LYMPH # 1.7 103/ul Normal 1.2-3.8 [facility] Comment on above: Performed By: #### C BC #### [facility] [address] [place] [address] Dr. Timi Prater Lymphocytes/100 WBC (Bld) 31.2 % Normal 20.5-60.0 [facility] [place] Comment on above: Performed By: #### C BC #### [facility] [address] [place] [address] Dr. Timi Prater MANUAL DIFF REQ NO Normal [facility] Comment on above: Performed By: #### C BC #### [facility] [address] [place] [address] Dr. Timi Prater MCH (RBC) [Entitic mass] 31.7 pg Normal 26.7-34.0 [facility] Comment on above: Performed By: #### C BC #### [facility] [address] [place] [address] Dr. Timi Prater MCHC (RBC) [Mass/Vol] 34.6 g/dL Normal 29.9-35.2 [facility] Comment on above: Performed By: #### C BC #### [facility] [address] [place] [address] Dr. Timi Prater MCV (RBC) [Entitic vol] 91.5 fL Normal 81.0-99.0 [facility] [place] Comment on above: Performed By: #### C BC #### [facility] [address] [place] [address] Dr. Timi Prater MONO # 0.5 103/ul Normal 0.3-0.8 [facility] Comment on above: Performed By: #### C BC #### [facility] [address] [place] [address] Dr. Timi Prater Monocytes/100 WBC (Bld) 8.7 % Normal 1.7-12.0 [facility] [place] Comment on above: Performed By: #### C BC #### [facility] [address] [place] [address] Dr. Timi Prater NEUT # 3.1 103/ul Normal 1.4-6.5 [facility] Comment on above: Performed By: #### C BC #### [facility] [address] [place] [address] Dr. Timi Prater Neutrophils/100 WBC (Bld) 56.2 % Normal 43.0-75.0 [facility] Comment on above: Performed By: #### C BC #### [facility] [address] [place] [address] Dr. Timi Prater Platelet mean volume (Bld) [Entitic vol] 10.8 fL Normal 9.5-13.5 [facility] Comment on above: Performed By: #### C BC #### [facility] [address] [address] [address] Timi Prater PLT 219 103/ul Normal 150-450 [facility] [place] Comment on above: Performed By: #### C BC #### [facility] [address] [place] [address] Dr. Timi Prater RBC 4.48 106/ul Normal 4.20-5.40 [facility] [place] Comment on above: Performed By: #### C BC #### [facility] [address] [address] [address] Timi Prater WBC 5.4 103/ul Normal 4.0-11.0 [facility] [place] Comment on above: Performed By: #### C BC #### [facility] [address] [place] [address] Dr. Timi Prater Orders Onlyon 10-20-2022 Orders Only [id number] Rosa Alonzo 2000 F Date Provider Department Center 10/20/2022 Ruchi-KANDY DRIVER [facility] No family history on file Normal [facility] PROF 14(COMP METB)on 023 Albumin [Mass/Vol] 4.5 g/dL Normal 3.4-5.0 [facility] Comment on above: Performed By: #### C DIFPOC #### [facility] [address] [place] [address] Dr. Timi Prater Albumin/Globulin [Mass ratio] 1.5 {ratio} Normal [facility] [place] Comment on above: Performed By: #### C DIFPOC #### [facility] [address] [place] [address] Dr. Timi Prater ALP [Catalytic activity/Vol] 56 U/L Normal 46-116 [facility] Comment on above: Performed By: #### C DIFPOC #### [facility] [address] [place] [address] Dr. Timi Prater ALT [Catalytic activity/Vol] 16 U/L Normal 14-59 [facility] [place] Comment on above: Performed By: #### C DIFPOC #### [facility] [address] [address] [address] Timi Prater Anion gap [Moles/Vol] 15.5 mmol/L Normal [facility] Comment on above: Performed By: #### C DIFPOC #### [facility] [address] [address] [address] Timi Prater AST [Catalytic activity/Vol] 13 U/L Critically low 15-37 [facility] [place] Comment on above: Performed By: #### C DIFPOC #### [facility] [address] [address] [address] Timi Prater Bilirubin [Mass/Vol] 0.6 mg/dL Normal 0.2-1.0 [facility] [place] Comment on above: Performed By: #### C DIFPOC #### [facility] [address] [place] [address] Dr. Timi Prater Calcium [Mass/Vol] 9.3 mg/dL Normal 8.5-10.1 [facility] Comment on above: Performed By: #### C DIFPOC #### [facility] [address] [place] [address] Dr. Timi Prater Chloride [Moles/Vol] 104 mmol/L Normal 98-107 [facility] Comment on above: Performed By: #### C DIFPOC #### [facility] [address] [place] [address] Dr. Timi Prater CO2 [Moles/Vol] 25.7 mmol/L Normal 21.0-32.0 [facility] Comment on above: Performed By: #### C DIFPOC #### [facility] [address] [place] [address] Dr. Timi Prater Creatinine [Mass/Vol] 0.71 mg/dL Normal 0.55-1.02 [facility] Comment on above: Performed By: #### C DIFPOC #### [facility] [address] [place] [address] Dr. Timi Prater EGFR-AF [place] >60 Normal >=60 [facility] Comment on above: Performed By: #### C DIFPOC #### [facility] [address] [address] [address] Timi Prater EGFR-NON AF [place] >60 Normal >=60 [facility] [place] Comment on above: Performed By: #### C DIFPOC #### [facility] [address] [address] [address] Timi Prater Globulin (S) [Mass/Vol] 3.1 g/dL Normal [facility] Comment on above: Performed By: #### C DIFPOC #### [facility] [address] [address] [address] Timi Prater Glucose [Mass/Vol] 77 mg/dL Normal 74-106 [facility] Comment on above: Performed By: #### C DIFPOC #### [facility] [address] [place] [address] Dr. Timi Prater Potassium [Moles/Vol] 4.2 mmol/L Normal 3.5-5.1 [facility] Comment on above: Performed By: #### C DIFPOC #### [facility] [address] [place] [address] Dr. Timi Prater Protein [Mass/Vol] 7.6 g/dL Normal 6.4-8.2 [facility] Comment on above: Performed By: #### C DIFPOC #### [facility] [address] [place] [address] Dr. Timi Prater Sodium [Moles/Vol] 141 mmol/L Normal 136-145 [facility] Comment on above: Performed By: #### C DIFPOC #### [facility] [address] [place] [address] Dr. Timi Prater Urea nitrogen [Mass/Vol] 15.0 mg/dL Normal 7.0-18.0 [facility] Comment on above: Performed By: #### C DIFPOC #### [facility] [address] [place] [address] Dr. Timi Prater Urea nitrogen/Creatinine [Mass ratio] 21.1 mg/mg Normal [facility] Comment on above: Performed By: #### C DIFPOC #### [facility] [address] [place], [place] [id number] Dr. Timi Prater LIPASEon 10-19-2022 Lipase [Catalytic activity/Vol] 117.0 U/L Normal 73.0-393.0 [facility] Comment on above: Performed By: #### [facility] #### [facility] [address], [place] [address] Dr. Timi Prater Orders Onlyon 10-19-2022 Orders Only [id number] Rosa Alonzo 2000 F Date Provider Department Center 10/19/2022 Ruchi-KANDY DRIVER [facility] No family history on file Normal [facility] CT ABD/PELV W CONon 10-19-19 CT ABD/PELV W CON EXAMINATION: CT ABD/ [...] pelvic inflammatory disease. Electronically authenticated by: AZAEL BONNIENABIL Date: 2022-10-18 11:02 Normal [facility] CORTISOL 24HR URINEon 2022 Cortisol,F,ug/24hr,U 19 ug/24 hr Normal 6-42 [facility] Comment on above: Performed By: #### C ORT24 #### [facility] [address] [address] [address] Timi Prater Cortisol,F,ug/L,U 18 ug/L Normal Undefined [facility] Comment on above: Performed By: #### C ORT24 #### [facility] [address] [place] [address] Dr. Timi Prater CLOSTRIDIUM DIFFICILE PCRon 10-06-2022 C difficile Toxin Gene RUCHI Negative Normal Negative [facility] Comment on above: Performed By: #### C ALPOO #### [facility] [address] [address] [address] Timi Prater REVERSE T3on 10-01-2022 Reverse T3, Serum 19.3 ng/dL Normal 9.2-24.1 [facility] Comment on above: Result Comment: This test was developed and its performance characteristics determined by [employer]. It has not been cleared or approved by the Food and Drug Administration. Performed By: #### O VAPE #### [facility] [address] [address] [address] Timi Prater Orders Onlyon 09-29-2022 Orders Only [id number] Rosa Alonzo 2000 F Date Provider Department Center 09/29/2022 [id number], HISTORICAL [facility] No family history on file Normal [facility] C. DIFF PCRon 09-28-2022 C. DIFFICILE PCR Negative Normal NEGATIVE [facility] Comment on above: Performed By: #### C DIFPOC #### [facility] [address] [place] [address] Dr. Timi Prater Orders Onlyon 09-28-2022 Orders Only [id number] Rosa Alonzo 2000 F Date Provider Department Center 09/28/2022 KANDY LÓPEZ [facility] No family history on file Normal [facility] FREE T4on 09-26-2022 Free T4 [Mass/Vol] 0.89 ng/dL Normal 0.76-1.46 [facility] Comment on above: Performed By: #### T HYRABS #### [facility] [address] [place] [address] Dr. Timi Prater CORTISOL Mely 09-25-2022 Cortisol AM 23.5 ug/dL Critically high 6.2-19.4 [facility] Comment on above: Performed By: #### C DIFPOC #### [facility] [address] [place] [address] Dr. Timi Prater THYROID ANTIBODIESon 023 Thyroglobulin Antibody <1.0 Normal 0.0-0.9 [facility] [place] Comment on above: Result Comment: Thyr oglobulin Antibody measured by [employer] [place] [employer] Performed By: #### T HYRABS #### [facility] [address] [place] [address] Dr. Timi Prater Thyroid Peroxidase (TPO) Ab 10 IU/mL Normal 0-34 [facility] [place] Comment on above: Performed By: #### T HYRABS #### [facility] [address] [place] [address] Dr. Timi Prater T3, TOTAL (TRIIODOTHYRONINE) on 09-23-2022 T3, TOTAL 108 ng/dL Normal 71-180 [facility] [place] Comment on above: Performed By: #### O VAPE #### [facility] [address] [place] [address] Dr. Timi Prater FREE T3on 09-22-2022 FREE T3 2.65 pg/mlL Normal 2.18-3.98 [facility] Comment on above: Performed By: #### C DIFPOC #### [facility] [address] [place] [address] Dr. Timi Prater TSHon 09-22-2022 TSH 1.156 uIU/mL Normal 0.358-3.740 [facility] Comment on above: Performed By: #### C DIFPOC #### [facility] [address] [address] [address] Timi Prater HELICOBACTER PYLORI AG STOOL on 09-14-2022 H. pylori Stool Ag, EIA Negative Normal Negative [facility] [place] Comment on above: Performed By: #### H PYLORI #### [facility] [address] [address] [address] Timi Prater C. DIFF PCRon 09-12-2022 C. DIFFICILE PCR Negative Normal NEGATIVE [facility] Comment on above: Performed By: #### C DIFPOC #### [facility] [address] [place] [address] Dr. Timi Prater Orders Onlyon 09-12-2022 Orders Only [id number] Rosa Alonzo 2000 F [facility] Provider Department Center 09/12/2022 [id number], HECTOR [facility] No family history on file Normal [facility] 37on 09-11-2022 37 Playroll for SIB O specific diet Normal [facility] Office Visiton 09-11-2022 Follow-up visit [id number] Rosa Alonzo 2000 [facility] Department [place] 09/11/2022KANDY ARCINIEGA [facility] No family history on file Level of Service:24813 AL OFFICE/OUTPATIENT ESTABLISHED MOD MDM 30-39 MIN Reason for Visit and Comments: continued stomach issues [Other] Normal [facility] Orders Onlyon 09-07-2022 Orders Only [id number] Rosa Alonzo 2000 [facility] Department [place] 09/07/2022 KANDY LÓPEZ [facility] No family history on file Normal [facility] STOOL CULTUREon 09-03-2022 Campylobacter Culture Final report Normal [facility] Comment on above: Performed By: #### O VAPE #### [facility] [address] [address] [address] Timi Prater E coli Shiga Toxin EIA Negative Normal Negative [facility] Comment on above: Performed By: #### O VAPE #### [facility] [address] [address] [address] Timi Prater Result 1 Comment Normal [facility] [place] Comment on above: Result Comment: No S almonella or Shigella recovered. Performed By: #### O VAPE #### [facility] [address] [address] [address] Timi Prater Result Comment: No C ampylobacter species isolated. Salmonella/Shigella Screen Final report Normal [facility] Comment on above: Performed By: #### O VAPE #### [facility] [address] [place] [address] Dr. Timi Prater CALPROTECTIN, FECALon 2022 Calprotectin, Fecal <16 Normal 0-120 [facility] Comment on above: Result Comment: Conc entration Interpretation Follow-Up <16 - 50 ug/g Normal None >50 -120 ug/g Borderline Re-evaluate in 4-6 weeks >120 ug/g Abnormal Repeat as clinically indicated Performed By: #### C ALPOO #### [facility] [address] [place] [address] Dr. Timi Prater Orders Onlyon 08-31-2022 Orders Only [id number] Rosa Alonzo 2000 F Date Provider Department Center 08/31/2022 [id number], HISTORICAL [facility] No family history on file [facility] 36on 08-30-2022 36 Order faxed. [facility] o [facility] 36 Pt calling stating t he Enteric Bacteria Stool Culture that you ordered her, her insurance will not cover and would cost at $1,0000 for her to have completed. [facility] told her to inform you to order just a regular stool culture instead. The order can be faxed to [phone]. [facility] C. DIFF PCRon 08-30-2022 C. DIFFICILE PCR Negative Normal NEGATIVE [facility] Comment on above: Performed By: #### O VAPE #### [facility] [address] [place] [address] Dr. Timi Prater Office Visiton 08-30-2022 Follow-up visit [id number] Rosa Alonzo 2000 F Date Provider Department Center 08/30/2022 KANDY LÓPEZ [facility] No family history on file Level of Service:62910 AL OFFICE/OUTPATIENT ESTABLISHED MOD MDM 30-39 MIN Reason for Visit and Comments: Colonoscopy [235] Normal [facility] Orders Onlyon 08-30-2022 Orders Only [id number] Rosa Alonzo 2000 F Date Provider Department Center 08/30/2022 KANDY LÓPEZ [facility] No family history on file Normal [facility] CLOSTRIDIUM DIFFICILE PCRon 08-26-2022 C difficile Toxin Gene RUCHI Negative Normal Negative [facility] [place] Comment on above: Performed By: #### C ALPOO #### [facility] [address] [place] [address] Dr. Timi Prater ER URINE PROFILEon 3 Bilirubin Ql (U) Negative Normal NEGATIVE [facility] Comment on above: Performed By: #### T HYRABS #### [facility] [address] [place] [address] Dr. Timi Prater Clarity (U) CLEAR Normal CLEAR [facility] [place] Comment on above: Performed By: #### T HYRABS #### [facility] [address] [place] [address] Dr. Timi Prater Color (U) LT. YELLOW Normal YELLOW [facility] Comment on above: Performed By: #### T HYRABS #### [facility] [address] [place] [address] Dr. Timi Prater ERUAHD A micrscopic examina tion will be performed if indicated. Normal [facility] Comment on above: Performed By: #### T HYRABS #### [facility] [address] [place] [address] Dr. Timi Prater Glucose Ql (U) Negative Normal NEGATIVE [facility] Comment on above: Performed By: #### T HYRABS #### [facility] [address] [place] [address] Dr. Timi Prater Hemoglobin Ql (U) Negative Normal NEGATIVE [facility] Comment on above: Performed By: #### T HYRABS #### [facility] [address] [place] [address] Dr. Timi Prater Ketones Ql (U) Negative Normal NEGATIVE [facility] Comment on above: Performed By: #### T HYRABS #### [facility] [address] [place] [address] Dr. Timi Prater LEUKOCYTES Negative Normal NEGATIVE [facility] [place] Comment on above: Performed By: #### T HYRABS #### [facility] [address] [place] [address] Dr. Timi Prater Nitrite Ql (U) Negative Normal NEGATIVE [facility] Comment on above: Performed By: #### T HYRABS #### [facility] [address] [place] [address] Dr. Timi Prater pH (U) 7.0 [pH] Normal 5-9 [facility] [place] Comment on above: Performed By: #### T HYRABS #### [facility] [address] [place] [address] Dr. Timi Prater SPEC GRAVITY 1.020 Normal 1.005-<=1.0 25 [facility] Comment on above: Performed By: #### T HYRABS #### [facility] [address] [place] [address] Dr. Timi Prater UA PROTEIN TRACE Normal NEGATIVE/ TRACE [facility] Comment on above: Performed By: #### T HYRABS #### [facility] [address] [place] [address] Dr. Timi Prater UR MICRO IND NOT INDICATED Normal [facility] Comment on above: Performed By: #### T HYRABS #### [facility] [address] [place] [address] Dr. Timi Prater Urobilinogen Qn (U) 0.2 {Trini'U}/dL Normal 0.2 - 1. 0 [facility] Comment on above: Performed By: #### T HYRABS #### [facility] [address] [place] [address] Dr. Timi Prater C. DIFF PCRon 08-22-2022 C. DIFFICILE PCR Negative Normal NEGATIVE [facility] Comment on above: Performed By: #### C DIFPOC #### [facility] [address] [place] [address] Dr. Timi Prater CARDIAC RITA ADMITon 023 CK [Catalytic activity/Vol] 56 U/L Normal 26-192 [facility] Comment on above: Performed By: #### O VAPE #### [facility] [address] [place] [address] Dr. Timi Prater CK.MB [Mass/Vol] ng/mL Normal <=3.60 [facility] Comment on above: Performed By: #### O VAPE #### [facility] [address] [place] [address] Dr. Timi Prater HSTROP 9.0 pg/mL Normal 4.0-51.3 [facility] Comment on above: Result Comment: CUT- OFF POINTS HAVE BEEN ESTABLISHED BASED ON THE FOURTH UNIVERSAL DEFINITIONS OF MYOCARDIAL INFARCTION. THE UPPER REFERENCE LIMIT (URL) OF TROPONIN, DEFINED THE 99TH PERCENTILE OF cTnI DISTRIBUTION IN A REFERENCE POPULATION, HAS BEEN CONFIRMED THE DECISION THRESHOLD FOR [place] DIAGNOSIS. Performed By: #### O VAPE #### [facility] [address] [place] [address] Dr. Timi Prater DARREL 15 ng/mL Normal 9-82 [facility] Comment on above: Performed By: #### O VAPE #### [facility] [address] [place] [address] Dr. Timi Prater CBC AUTO DIFFon 08-22-2022 BASO # 0.1 103/ul Normal 0.0-0.1 [facility] Comment on above: Performed By: #### C ALPOO #### [facility] [address] [place] [address] Dr. Timi Prater Basophils/100 WBC (Bld) 0.7 % Normal 0.2-2.0 [facility] Comment on above: Performed By: #### C ALPOO #### [facility] [address] [place] [address] Dr. Timi Prater EO # 0.2 103/ul Normal 0.0-0.7 [facility] [place] Comment on above: Performed By: #### C ALPOO #### [facility] [address] [place] [address] Dr. Timi Prater Eosinophils/100 WBC (Bld) 2.7 % Normal 0.9-7.0 [facility] [place] Comment on above: Performed By: #### C ALPOO #### [facility] [address] [place] [address] Dr. Timi Prater Erythrocyte distribution width (RBC) [Ratio] 11.9 % Normal 11.0-15.0 [facility] Comment on above: Performed By: #### C ALPOO #### [facility] [address] [place] [address] Dr. Timi Prater Hematocrit (Bld) [Volume fraction] 39.0 % Normal 36.0-48.0 [facility] Comment on above: Performed By: #### C ALPOO #### [facility] [address] [place] [address] Dr. Timi Prater Hemoglobin (Bld) [Mass/Vol] 13.3 g/dL Normal 12.0-16.0 [facility] Comment on above: Performed By: #### C ALPOO #### [facility] [address] [place] [address] Dr. Timi Prater IG # 0.02 10e3/ul Normal 0.00-0.03 [facility] Comment on above: Performed By: #### C ALPOO #### [facility] [address] [place] [address] Dr. Timi Prater IG % 0.2 % Normal 0.0-0.5 [facility] Comment on above: Performed By: #### C ALPOO #### [facility] [address] [place] [address] Dr. Timi Prater LYMPH # 3.7 103/ul Normal 1.2-3.8 [facility] Comment on above: Performed By: #### C ALPOO #### [facility] [address] [place] [address] Dr. Timi Prater Lymphocytes/100 WBC (Bld) 43.6 % Normal 20.5-60.0 [facility] Comment on above: Performed By: #### C ALPOO #### [facility] [address] [place] [address] Dr. Timi Prater MANUAL DIFF REQ NO Normal [facility] Comment on above: Performed By: #### C ALPOO #### [facility] [address] [place] [address] Dr. Timi Prater MCH (RBC) [Entitic mass] 31.7 pg Normal 26.7-34.0 [facility] Comment on above: Performed By: #### C ALPOO #### [facility] [address] [place] [address] Dr. Timi Prater MCHC (RBC) [Mass/Vol] 34.1 g/dL Normal 29.9-35.2 [facility] Comment on above: Performed By: #### C ALPOO #### [facility] [address] [place] [address] Dr. Timi Prater MCV (RBC) [Entitic vol] 93.1 fL Normal 81.0-99.0 [facility] Comment on above: Performed By: #### C ALPOO #### [facility] [address] [place] [address] Dr. Timi Prater MONO # 0.8 103/ul Normal 0.3-0.8 [facility] Comment on above: Performed By: #### C ALPOO #### [facility] [address] [place] [address] Dr. Timi Prater Monocytes/100 WBC (Bld) 8.9 % Normal 1.7-12.0 [facility] Comment on above: Performed By: #### C ALPOO #### [facility] [address] [place] [address] Dr. Timi Prater NEUT # 3.8 103/ul Normal 1.4-6.5 [facility] Comment on above: Performed By: #### C ALPOO #### [facility] [address] [address] [address] Timi Prater Neutrophils/100 WBC (Bld) 43.9 % Normal 43.0-75.0 [facility] Comment on above: Performed By: #### C ALPOO #### [facility] [address] [address] [address] Timi Prater Platelet mean volume (Bld) [Entitic vol] 11.1 fL Normal 9.5-13.5 [facility] Comment on above: Performed By: #### C ALPOO #### [facility] [address] [place] [address] Dr. Timi Prater PLT 218 103/ul Normal 150-450 [facility] Comment on above: Performed By: #### C ALPOO #### [facility] [address] [place] [address] Dr. Timi Prater RBC 4.19 106/ul Critically low 4.20-5.40 [facility] Comment on above: Performed By: #### C ALPOO #### [facility] [address] [place] [address] Dr. Timi Prater WBC 8.6 103/ul Normal 4.0-11.0 [facility] Comment on above: Performed By: #### C ALPOO #### [facility] [address] [place] [address] Dr. Timi Prater PROF 14(COMP METB)on 023 Albumin [Mass/Vol] 4.2 g/dL Normal 3.4-5.0 [facility] Comment on above: Performed By: #### O VAPE #### [facility] [address] [place] [address] Dr. Timi Prater Albumin/Globulin [Mass ratio] 1.3 {ratio} Normal [facility] Comment on above: Performed By: #### O VAPE #### [facility] [address] [place] [address] Dr. Timi Prater ALP [Catalytic activity/Vol] 50 U/L Normal 46-116 [facility] Comment on above: Performed By: #### O VAPE #### [facility] [address] [address] [address] Timi Prater ALT [Catalytic activity/Vol] 13 U/L Critically low 14-59 [facility] Comment on above: Performed By: #### O VAPE #### [facility] [address] [address] [address] Timi Prater Anion gap [Moles/Vol] 13.8 mmol/L Normal [facility] Comment on above: Performed By: #### O VAPE #### [facility] [address] [address] [address] Timi Prater AST [Catalytic activity/Vol] 14 U/L Critically low 15-37 [facility] Comment on above: Performed By: #### O VAPE #### [facility] [address] [address] [address] Timi Prater Bilirubin [Mass/Vol] 0.4 mg/dL Normal 0.2-1.0 [facility] Comment on above: Performed By: #### O VAPE #### [facility] [address] [address] [address] Timi Prater Calcium [Mass/Vol] 9.2 mg/dL Normal 8.5-10.1 [facility] Comment on above: Performed By: #### O VAPE #### [facility] [address] [address] [address] Timi Prater Chloride [Moles/Vol] 102 mmol/L Normal 98-107 [facility] Comment on above: Performed By: #### O VAPE #### [facility] [address] [address] [address] Timi Prater CO2 [Moles/Vol] 26.9 mmol/L Normal 21.0-32.0 [facility] Comment on above: Performed By: #### O VAPE #### [facility] [address] [address] [address] Timi Prater Creatinine [Mass/Vol] 0.73 mg/dL Normal 0.55-1.02 [facility] Comment on above: Performed By: #### O VAPE #### [facility] [address] [address] [address] Timi Prater EGFR-AF [place] >60 Normal >=60 [facility] Comment on above: Performed By: #### O VAPE #### [facility] [address] [address] [address] Timi Prater EGFR-NON AF [place] >60 Normal >=60 [facility] Comment on above: Performed By: #### O VAPE #### [facility] [address] [address] [address] Timi Prater Globulin (S) [Mass/Vol] 3.3 g/dL Normal [facility] Comment on above: Performed By: #### O VAPE #### [facility] [address] [place] [address] Dr. Timi Prater Glucose [Mass/Vol] 107 mg/dL Critically high 74-106 [facility] Comment on above: Performed By: #### O VAPE #### [facility] [address] [address] [address] Timi Prater Potassium [Moles/Vol] 3.7 mmol/L Normal 3.5-5.1 [facility] Comment on above: Performed By: #### O VAPE #### [facility] [address] [place] [address] Dr. Timi Prater Protein [Mass/Vol] 7.5 g/dL Normal 6.4-8.2 [facility] Comment on above: Performed By: #### O VAPE #### [facility] [address] [place] [address] Dr. Timi Prater Sodium [Moles/Vol] 139 mmol/L Normal 136-145 [facility] Comment on above: Performed By: #### O VAPE #### [facility] [address] [address] [address] Timi Prater Urea nitrogen [Mass/Vol] 14.0 mg/dL Normal 7.0-18.0 [facility] Comment on above: Performed By: #### O VAPE #### [facility] [address] [place] [address] Dr. Timi Prater Urea nitrogen/Creatinine [Mass ratio] 19.2 mg/mg Normal [facility] Comment on above: Performed By: #### O VAPE #### [facility] [address] [address] [address] Timi Prater PAP ACOG PANEL 2: 21 to 27on 08-21-2022 . . Normal [facility] Comment on above: Performed By: #### O VAPE #### [facility] [address] [address] [address] Timi Prater Age Gdln ACOG Testing - Normal [facility] Comment on above: Performed By: #### O VAPE #### [facility] [address] [address] [address] Timi Prater DIAGNOSIS: Comment Abnormal [facility] Comment on above: Result Comment: EPIT HELIAL CELL ABNORMALITY. ATYPICAL SQUAMOUS CELLS OF UNDETERMINED SIGNIFICANCE (ASC-US). Performed By: #### O VAPE #### [facility] [address] [address] [address] Timi Prater Electronically signed by: Comment Normal [facility] Comment on above: Result Comment: Eloise Segal MD, Pathologist Performed By: #### O VAPE #### [facility] [address] [place] [address] Dr. Timi Prater HPV Aptima Negative Normal Negative [facility] Comment on above: Result Comment: This nucleic acid amplification test detects fourteen high-risk HPV types (16,18,31,33,35,39,45,51,52,56,58,59,66,68) without differentiation. Performed By: #### O VAPE #### [facility] [address] [address] [address] Timi Prater Methodology: Comment Normal [facility] Comment on above: Result Comment: This liquid based ThinPrep(R) pap test was screened with the use of an image guided system. Performed By: #### O VAPE #### [facility] [address] [address] [address] Timi Prater Note: Comment Normal [facility] Comment on above: Result Comment: The Pap smear is a screening test designed to aid in the detection of premalignant and malignant conditions of the uterine cervix. It is not a diagnostic procedure and should not be used as the sole means of detecting cervical cancer. Both false-positive and false-negative reports do occur. . Performed By: #### O VAPE #### [facility] [address] [address] [address] Timi Prater Pathologist Provided ICD10 Comment Normal [facility] Comment on above: Result Comment: [id number]. [id number] Performed By: #### O VAPE #### [facility] [address] [id number] Timi Prater Performed by: Comment Normal [facility] Comment on above: Result Comment: Lizet Holguin, Certified Prosthetist (ASCP) Performed By: #### O VAPE #### [facility] [address] [address] [address] Timi Prater Recommendation: Comment Abnormal [facility] Comment on above: Result Comment: Sugg est follow up as clinically appropriate. Performed By: #### O VAPE #### [facility] [id number] Timi Prater Reflex Criteria: Comment Normal [facility] Comment on above: Result Comment: See below for HPV testing results. . Performed By: #### O VAPE #### [facility] [address] [id number] Timi Prater Specimen adequacy: Comment Normal [facility] Comment on above: Result Comment: Sati sfactory for evaluation. Endocervical and/or squamous metaplastic cells (endocervical component) are present. Performed By: #### O VAPE #### [facility] [id number] Timi Prater HPon 08-15-2022 HP H&P reviewed. The pa adilsonbasil was examined and there are no changes to the H&P. Normal [facility] Orders Onlyon 08-08-2022 Orders Only [id number] Rosa Alonzo 2000 F Date Provider Department Center 08/08/20222030-ROSHAN AVIT[facility] DIPTI No family history on file Normal [facility] 29on 08-02-2022 29 Addended by: CELY NELSON on: 08/04/2022 03:16 AM Modules accepted: Level of Service Normal [facility] HPon 08-02-2022 HP ----- ----- Attestation signed by Cely Nelson MD at 08/04/2022 3:16 AM I personally saw the patient on the day of the encounter, performed the murray portion(s) of the service and participated in the management and confirm the Nurse practitioner's documentation. 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 ----- [facility] Gastroenterology Follow-Up Patient Visit CHIEF [...] she was feeling well. Went to [facility] in April and had stool samples done, [...] and normal (more content not included)... Normal [facility] Office Visiton 08-02-2022 Follow-up visit [id number] Rosa Alonzo 2000 F Date Provider Department Center 08/02/2022 CELY CHAHAL [facility] No family history on file Level of Service:62839 AL OFFICE/OUTPATIENT ESTABLISHED MOD MDM 30-39 MIN Reason for Visit and Comments: f/u c diff [Other] Normal [facility] C. DIFF PCRon 07-27-2022 C. DIFFICILE PCR Positive Critically abnormal NEGATIVE [facility] Comment on above: Performed By: #### T HYRABS #### [facility] [address] [place] [address] Dr. Timi Prater C. DIFF PCRon 07-13-2022 C. DIFFICILE PCR Negative Normal NEGATIVE [facility] Comment on above: Performed By: #### C DIFPOC #### [facility] [address] [id number] Timi Prater US SINGLE QUAD RT [...] DARA HUMPHREY Date: 2022-05-11 17:22 Normal [facility] FECAL FAT QUANTITATIVEon Fecal Weight (Total) 233 g Normal [facility] Comment on above: Performed By: #### C ALPOO #### [facility] [address] [address] [address] Timi Prater Fecal, (Fecal Lipids)Qn 1.3 g/24 hr Normal 0.0-7.1 [facility] Comment on above: Result Comment: This value is based on a 72 hour stool collection. Performed By: #### C ALPOO #### [facility] [address] [place], [place] [id number] Dr. Timi Prater LACTOFERRIN FECAL QUANTon Lactoferrin, Fecal, Quant. <1.00 Normal 0.00-7.24 [facility] Comment on above: Result Comment: Re sults [...] (IBS). Performed By: #### C ALPOO #### [facility] [address] [place] [address] Dr. Timi Prater PANCREATIC ELASTASE FECALon 05-05-2022 Pancreatic Elastase, Fecal 369 ug Elast./g Normal >200 [facility] Comment on above: Result Comment: Tia re Pancreatic Insufficiency: <100 Moderate Pancreatic Insufficiency: 100 - 200 Normal: >200 Performed By: #### T HYRABS #### [facility] [address] [place] [address] Dr. Timi Prater C. DIFF PCRon 04-17-2022 C. DIFFICILE PCR Negative Normal NEGATIVE [facility] Comment on above: Performed By: #### O VAPE #### [facility] [address] [place] [address] Dr. Timi Prater Abstracton 04-01-2022 Abstract [id number] David Henao 2000 F Date Provider Department Center 04/01/2022 REYNA RODRIGUEZ [facility] No family history on file Normal [facility] GI PANEL (PCR)on 03-17-2022 Adenovirus F 40/41 Not detected Normal NOT DETECTED [facility] Comment on above: Performed By: #### G IPANEL #### [facility] [address] [place] [address] Dr. Timi Prater Astrovirus Not detected Normal NOT DETECTED [facility] Comment on above: Performed By: #### G IPANEL #### [facility] [address] [place] [address] Dr. Timi Prater C. Diff toxin A/B Not detected Normal NOT DETECTED [facility] Comment on above: Performed By: #### G IPANEL #### [facility] [address] [place] [address] Dr. Timi Prater Campylobacter Not detected Normal NOT DETECTED [facility] Comment on above: Performed By: #### G IPANEL #### [facility] [address] [place] [address] Dr. Timi Prater Cryptosporidium Not detected Normal NOT DETECTED [facility] Comment on above: Performed By: #### G IPANEL #### [facility] [address] [place] [address] Dr. Timi Prater Cyclos. Cayetanensis Not detected Normal NOT DETECTED [facility] Comment on above: Performed By: #### G IPANEL #### [facility] [address] [place] [address] Dr. Timi Prater E. Coli O157 Not Applicable Normal Not Applicable [facility] Comment on above: Performed By: #### G IPANEL #### [facility] [address] [place] [address] Dr. Timi Prater E. histolytica Not detected Normal NOT DETECTED [facility] Comment on above: Performed By: #### G IPANEL #### [facility] [address] [place] [address] Dr. Timi Prater EAEC Not detected Normal NOT DETECTED [facility] Comment on above: Performed By: #### G IPANEL #### [facility] [address] [place] [address] Dr. Timi Prater EIEC Not detected Normal NOT DETECTED [facility] Comment on above: Performed By: #### G IPANEL #### [facility] [address] [place] [address] Dr. Timi Prater EPEC Not detected Normal NOT DETECTED [facility] Comment on above: Performed By: #### G IPANEL #### [facility] [address] [place] [address] Dr. Timi Prater ETEC Not detected Normal NOT DETECTED [facility] Comment on above: Performed By: #### G IPANEL #### [facility] [address] [place] [address] Dr. Timi Garcia. Lamblia Not detected Normal NOT DETECTED [facility] Comment on above: Performed By: #### G IPANEL #### [facility] [address] [place] [address] Dr. Timi HARPERANEL CONTROLS PASSED Normal [facility] Comment on above: Performed By: #### G IPANEL #### [facility] [address] [place] [address] Dr. Timi QUINTANILLA [facility] HEADER GI PANEL BACTERIA Normal [facility] Comment on above: Performed By: #### G IPANEL #### [facility] [address] [place] [address] Dr. Timi FAJARDO ECOLI GI PANEL DIARRHEAGEN IC E.COLI / SHIGELLA Normal [facility] Comment on above: Performed By: #### G IPANEL #### [facility] [address] [place] [address] Dr. Timi FAJARDO INFO SEE BELOW Normal [facility] Comment on above: Result Comment: EAEC - Enteroaggregative E. Coli EPEC- Enteropathogenic E. Coli ETEC- Enterotoxigenic E. Coli lt/st STEC- Shigella-like toxin-producing E. Coli stx1/stx2 EIEC- Shigella/Enteroinvasive E. Coli Performed By: #### G IPANEL #### [facility] [address] [place] [address] Dr. iTmi FAJARDO PARASITES GI PANEL PARASITES Normal [facility] Comment on above: Performed By: #### G IPANEL #### [facility] [address] [place] [address] Dr. Timi FAJARDO VIRUS GI PANEL VIRUSES Normal [facility] Comment on above: Performed By: #### G IPANEL #### [facility] [address] [place] [address] Dr. Timi Prater Norovirus GI/GII Not detected Normal NOT DETECTED [facility] Comment on above: Performed By: #### G IPANEL #### [facility] [address] [place] [address] Dr. Timi Prater P. Shigelloides Not detected Normal NOT DETECTED [facility] Comment on above: Performed By: #### G IPANEL #### [facility] [address] [address] [address] Timi Prater Rotavirus A Not detected Normal NOT DETECTED [facility] Comment on above: Performed By: #### G IPANEL #### [facility] [address] [place] [address] Dr. Timi Prater Salmonella Not detected Normal NOT DETECTED [facility] Comment on above: Performed By: #### G IPANEL #### [facility] [address] [place] [address] Dr. Timi Prater Sapovirus Not detected Normal NOT DETECTED [facility] Comment on above: Performed By: #### G IPANEL #### [facility] [address] [place] [address] Dr. Timi Prater STEC Not detected Normal NOT DETECTED [facility] Comment on above: Performed By: #### G IPANEL #### [facility] [address] [place] [address] Dr. Timi Prater Vibrio Not detected Normal NOT DETECTED [facility] Comment on above: Performed By: #### G IPANEL #### [facility] [address] [place] [address] Dr. Timi Prater Vibrio Cholera Not detected Normal NOT DETECTED [facility] Comment on above: Performed By: #### G IPANEL #### [facility] [address] [place] [address] Dr. Timi Prater Y. Enterocolitica Not detected Normal NOT DETECTED [facility] Comment on above: Performed By: #### G IPANEL #### [facility] [address] [place] [address] Dr. Timi Prater STOOL CULTUREon 03-01-2022 Campylobacter Culture Final report Normal [facility] Comment on above: Performed By: #### C XSTOOL #### [facility] [address] [place] [address] Dr. Timi Prater E coli Shiga Toxin EIA Negative Normal Negative [facility] Comment on above: Performed By: #### C XSTOOL #### [facility] [facility] [address] [place] [address] Dr. Timi Prater Result 1 Comment Normal [facility] Comment on above: Result Comment: No S almonella or Shigella recovered. Performed By: #### C XSTOOL #### [facility] [address] [place] [address] Dr. Timi Prater Result Comment: No C ampylobacter species isolated. Salmonella/Shigella Screen Final report Normal [facility] Comment on above: Performed By: #### C XSTOOL #### [facility] [address], [place] [address] Dr. Timi Prater CLOSTRIDIUM DIFFICILE PCRon 02-03-2022 C difficile Toxin Gene RUCHI Negative Normal Negative [facility] Comment on above: Performed By: #### C DIFPOC #### [facility] [address], [place] [address] Dr. Timi Prater C. DIFF PCRon 01-14-2022 C. DIFFICILE PCR Negative Normal NEGATIVE [facility] Comment on above: Performed By: #### C ALPOO #### [facility] [address], [place] [address] Dr. Timi Prater Endoscopy Reporton Endoscopy Report MR#: [id number] [facility] Pt. Name: Rosa Henao Surgery Date: 12/29/2021 Room #: Z0 Date of : 2000 PROCEDURE NOTE ATTENDING: Zenon Huggins MD PROCEDURE: Colonoscopy with FMT. INDICATION FOR PROCEDURE: Recurrent C diff. TYPE OF ANESTHESIA: Conscious sedation, 6 mg of Versed, 150 mcg of fentanyl, and 25 mg of Benadryl. 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 QUALITY OF THE [...] P/Darren Baig MD Date Trans: 12/30/2021 03:17 A/mmo [id number] cc: Colby Augustin M.D. [address] [place] [phone] Normal [facility] POC SARS COV2 IDon 2 SARS-CoV-2 (COVID-19) RNA RUCHI+probe Ql (Unsp spec) Negative Normal NEGATIVE [facility] Comment on above: Result Comment: ID [...] Accreditation. Performed By: #### 3 1921 #### [facility] [address] [place] [address], [facility] POC URINE PREGNANCYon 2021 Beta HCG ( test) Ql (U) Negative Normal NEGATIVE [facility] Comment on above: Result Comment: Perf ormed in PACU Performed By: #### 8 [id number] #### [facility] [address] General Surgery Office/Clini c Noteon 07-08-2021 [...] 06/21/2021 Family History Cancer: Father. Stroke: Mother. [facility] Comment on above: Result Comment: Elec tronically Signed By: KALEB MACKEY, Ana Lan\Date and Time Signed: 07/08/21 16:21 EST Pathology Noteon 07-04-2021 Pathology Note [id number]#1.00CD:12 7 [facility] Operative Reporton Operative Report [id number]#1.00CD:127 [facility] Lab Reportson 06-27-2021 Lab Reports [id number]#1.00CD:12 7 [facility] Consent for Procedure/Surger yon 06-22-2021 Consent for Procedure/Surgery [id number]#1.00CD:12 7 [facility] June 22, 2021 Colby Augustin, [address] [place] [address] [place] [address] Re: ROSA HENAO Date of : 2000 Thank you for your referral of Rosa Henao who was seen on consultation on 06/21/2021 for daily nausea with abdominal cramping. An EGD is planned for further evaluation. I have enclosed my consultation note for your review. I will be happy to follow Rosa. Sincerely, Ana De La Cruz MD General Surgery Normal [facility] Ambulatory Clinical Summaryo n 06-21-2021 Ambulatory Clinical Summary {[id number] D:[id number] Normal [facility] Physician Referralon 021 Physician Referral [id number]#1.00CD:12 7 Normal [facility] COVID Quick Testingon 2020 Result Negative [facility] Other S. pyogenes Ag Ql (Throat)on 05-05-2021 S. pyogenes Org specific cx Ql (Throat) Negative [facility] Other Ambulatory Clinical Summaryo n 01-04-2021 Ambulatory Clinical Summary {[id number] D:[id number] Normal [facility] General Surgery Office/Clini c Noteon 01-04-2021 [...] 01/04/2021 Family History Cancer: Father. Stroke: Mother. [facility] Comment on above: Result Comment: Elec tronically Signed By: KALEB MACKEY, Ana Sanchez\.br\Date and Time Signed: 01/04/21 14:32 EDT Pathology Noteon 01-01-2021 Pathology Note [id number]:1 27 [facility] Outside Colonoscopyon 2020 Outside Colonoscopy [id number]#1.00CD:1 27 [facility] Lab Reportson 12-29-2020 Lab Reports [id number]#1.00CD:12 7 [facility] Consent for Procedure/Surger yon 12-08-2020 Consent for Procedure/Surgery [id number]:12 7 [facility] Provider Letter FTon 12-08 Provider Letter [facility] (Inserted Image. Un able to display) Colby Augustin, [facility] [facility] [place] [address] [address] [place] [address] Re: ROSA HENAO Date of : 2000 [...] Ana De La Cruz MD General Surgery [facility] Ambulatory Clinical Summaryo n 12-07-2020 Ambulatory Clinical Summary {[id number] D:[id number] [facility] Patient Educationon 12-08-19 Patient Education Preventive [...] Yard work, such as: ? 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 ? Raking and bagging leaves. ? Washing [...] 08/11/2011 Document Revised: 06/21/2018 Document Reviewed: 05/30/2018 Elsevier Patient Education ? 2020 [employer] Radiology Colonoscopy, Adult A colonoscopy is [...] have certain (more content not included)... Normal [facility] Physician Referralon 021 Physician Referral [id number]:12 7 [facility] No Panel Informationon 12-02 [facility] Vital Signs Date Time Vital Sign Value Performing Clinician Facility 04-30-2024 10:38-0400 Body height 162.6 cm Zenon Pretty MD Work Phone: [facility] 04-30-2024 10:38-0400 Body mass index (BMI) [Ratio] 18.88 kg/m2 Zenon Pretty MD Work Phone: [facility] 04-30-2024 10:38-0400 Body weight 49.9 kg Zenon Pretty MD Work Phone: [facility] 04-30-2024 10:38-0400 Diastolic blood pressure 74 mm[Hg] Zenon Pretty MD Work Phone: [facility] 04-30-2024 10:38-0400 Heart rate 86 /min Zenon Pretty MD Work Phone: [facility] 04-30-2024 10:38-0400 Respiratory rate 18 /min Zenon Pretty MD Work Phone: [facility] 04-30-2024 10:38-0400 Systolic blood pressure 108 mm[Hg] Zenon Pretty MD Work Phone: [facility] 03-26-2024 10:52-0400 Body height 162.6 cm Zenon Pretty MD Work Phone: [facility] 03-26-2024 10:52-0400 Body mass index (BMI) [Ratio] 18.88 kg/m2 Zenon Pretty MD Work Phone: [facility] 03-26-2024 10:52-0400 Body weight 49.9 kg Zenon Pretty MD Work Phone: [facility] 03-26-2024 10:52-0400 Diastolic blood pressure 67 mm[Hg] Zenon Pretty MD Work Phone: [facility] 03-26-2024 10:52-0400 Heart rate 81 /min Zenon Pretty MD Work Phone: [facility] 03-26-2024 10:52-0400 Respiratory rate 16 /min Zenon Pretty MD Work Phone: [facility] 03-26-2024 10:52-0400 Systolic blood pressure 110 mm[Hg] Zenon Pretty MD Work Phone: [facility] 03-19-2024 13:20-0400 Body height 162.56 cm DO Ana Bookers Work Phone: [facility] 03-19-2024 13:20-0400 Body mass index (BMI) [Ratio] 19.2 kg/m2 DO Ana Bookers Work Phone: [facility] 03-19-2024 13:20-0400 Body weight 50.8 kg DO Ana Bookers Work Phone: [facility] 03-19-2024 13:20-0400 Diastolic blood pressure 60 mm[Hg] DO Ana Pachecoillis Work Phone: [facility] 03-19-2024 13:20-0400 Heart rate 78 /min DO Ana Bookers Work Phone: [facility] 03-19-2024 13:20-0400 SaO2% (BldA) [Mass fraction] 99 % DO Ana Bookers Work Phone: [facility] 03-19-2024 13:20-0400 Systolic blood pressure 94 mm[Hg] DO Ana Bolton Work Phone: [facility] 02-26-2024 15:21-0400 Body height 162.6 cm Bola Braden MD Work Phone: [facility] 02-26-2024 15:21-0400 Body mass index (BMI) [Ratio] 19.38 kg/m2 Bola Braden MD Work Phone: [facility] 02-26-2024 15:21-0400 Body temperature 98.2 [degF] Bola Braden MD Work Phone: [facility] 02-26-2024 15:21-0400 Body weight 51.26 kg Bola Braden MD Work Phone: [facility] 02-26-2024 15:21-0400 Diastolic blood pressure 68 mm[Hg] Bola Braden MD Work Phone: [facility] 02-26-2024 15:21-0400 Heart rate 65 /min Bola Braden MD Work Phone: [facility] 02-26-2024 15:21-0400 Systolic blood pressure 117 mm[Hg] Bola Braden MD Work Phone: [facility] 12-05-2023 13:45-0400 Body height 162.6 cm Ariella Mccoy PRACTICE COORDINATOR.STORE CUSTODIAN Work Phone: [facility] 12-05-2023 13:45-0400 Body mass index (BMI) [Ratio] 19.22 kg/m2 Ariella Mccoy PRACTICE COORDINATOR.STORE CUSTODIAN Work Phone: [facility] 12-05-2023 13:45-0400 Body temperature 98.01 [degF] Ariella Mccoy APRN.STORE CUSTODIAN Work Phone: [facility] 12-05-2023 13:45-0400 Body weight 50.8 kg Ariella Mccoy APRN.STORE CUSTODIAN Work Phone: [facility] 12-05-2023 13:45-0400 Diastolic blood pressure 64 mm[Hg] Ariella Mccoy PRACTICE COORDINATOR.STORE CUSTODIAN Work Phone: [facility] 12-05-2023 13:45-0400 Heart rate 90 /min Ariella Mccoy PRACTICE COORDINATOR.STORE CUSTODIAN Work Phone: [facility] 12-05-2023 13:45-0400 SaO2% (BldA) [Mass fraction] 99 % Ariella Mccoy PRACTICE COORDINATOR.STORE CUSTODIAN Work Phone: [facility] 12-05-2023 13:45-0400 Systolic blood pressure 106 mm[Hg] Ariella Mccoy PRACTICE COORDINATOR.STORE CUSTODIAN Work Phone: [facility] 11-29-2023 11:15-0400 Body height 162.56 cm [facility] 11-29-2023 11:15-0400 Body mass index (BMI) [Ratio] 18.7 kg/m2 [facility] 11-29-2023 11:15-0400 Body weight 49.58 kg [facility] 11-29-2023 11:15-0400 Diastolic blood pressure 60 mm[Hg] [facility] 11-29-2023 11:15-0400 Heart rate 83 /min [facility] 11-29-2023 11:15-0400 Respiratory rate 18 /min [facility] 11-29-2023 11:15-0400 SaO2% (BldA) [Mass fraction] 98 % [facility] 11-29-2023 11:15-0400 Systolic blood pressure 110 mm[Hg] [facility] 11-15-2023 14:44-0400 Body height 162.6 cm Pacc 1 Other Phone: [facility] 11-15-2023 14:44-0400 Body mass index (BMI) [Ratio] 20.06 kg/m2 Pacc 1 Other Phone: [facility] 11-15-2023 14:44-0400 Body temperature 97.11 [degF] Pacc 1 Other Phone: [facility] 11-15-2023 14:44-0400 Body weight 53 kg Pacc 1 Other Phone: [facility] 11-15-2023 14:44-0400 Diastolic blood pressure 67 mm[Hg] Pacc 1 Other Phone: [facility] 11-15-2023 14:44-0400 Heart rate 75 /min Pacc 1 Other Phone: [facility] 11-15-2023 14:44-0400 Respiratory rate 18 /min Pacc 1 Other Phone: [facility] 11-15-2023 14:44-0400 SaO2% (BldA) [Mass fraction] 100 % Pacc 1 Other Phone: [facility] 11-15-2023 14:44-0400 Systolic blood pressure 110 mm[Hg] Pacc 1 Other Phone: [facility] 10-22-2023 14:44-0400 Body height 162.6 cm Sedrick Rushing MD Work Phone: [facility] 10-22-2023 14:44-0400 Body weight 52.62 kg Sedrick Rushing MD Work Phone: [facility] 10-22-2023 14:44-0400 Diastolic blood pressure 62 mm[Hg] Sedrick Rushing MD Work Phone: [facility] 10-22-2023 14:44-0400 Heart rate 40 /min Sedrick Rushing MD Work Phone: [facility] 10-22-2023 14:44-0400 Systolic blood pressure 102 mm[Hg] Sedrick Rushing MD Work Phone: [facility] 09-06-2023 14:00-0500 Heart rate 68 /min Isabelle Menon MD Work Phone: [facility] 09-06-2023 14:00-0500 Respiratory rate 22 /min Isabelle Menon MD Work Phone: [facility] 09-06-2023 14:00-0500 SaO2% (BldA) [Mass fraction] 100 % Isabelle Menon MD Work Phone: [facility] 09-06-2023 13:45-0500 Diastolic blood pressure 76 mm[Hg] Isabelle Menon MD Work Phone: [facility] 09-06-2023 13:45-0500 Systolic blood pressure 101 mm[Hg] Isabelle Menon MD Work Phone: [facility] 09-06-2023 13:27-0500 Body temperature 97.2 [degF] Isabelle Menon MD Work Phone: [facility] 06-06-2023 11:42-0500 Body weight 51.26 kg Isabelle Menon MD Work Phone: [facility] 06-06-2023 11:42-0500 Diastolic blood pressure 71 mm[Hg] Isabelle Menon MD Work Phone: [facility] 06-06-2023 11:42-0500 Heart rate 87 /min Isabelle Menon MD Work Phone: [facility] 06-06-2023 11:42-0500 Systolic blood pressure 104 mm[Hg] Isabelle Menon MD Work Phone: [facility] 05-24-2023 11:30-0400 Body height 162.56 cm Analia Holliday Other [facility] Other 05-24-2023 11:30-0400 Body mass index (BMI) [Ratio] 20.48 kg/m2 Analia Holliday Other [facility] Other 05-24-2023 11:30-0400 Body weight 54.11 kg Analia Holliday Other [facility] Other 05-24-2023 11:30-0400 Diastolic blood pressure 60 mm[Hg] Analia Holliday Other [facility] Other 05-24-2023 11:30-0400 Respiratory rate 18 /min Analia Holliday Other [facility] Other 05-24-2023 11:30-0400 SaO2% (BldA) [Mass fraction] 99 % Analia Holliday Other [facility] Other 05-24-2023 11:30-0400 Systolic blood pressure 100 mm[Hg] Analia Miya Other [facility] Other 05-22-2023 11:10-0400 Body height 162.6 cm Dara Butler Jr., DO Work Phone: [facility] 05-22-2023 11:10-0400 Body weight 52.3 kg Dara Butler Jr., DO Work Phone: [facility] 02-06-2023 10:10-0400 Body height 162.6 cm Dara Butler Jr., DO Work Phone: [facility] 02-06-2023 10:10-0400 Body weight 51.26 kg Dara Butler Jr., DO Work Phone: [facility] 02-06-2023 10:10-0400 Diastolic blood pressure 67 mm[Hg] Dara Butler Jr., DO Work Phone: [facility] 02-06-2023 10:10-0400 Heart rate 67 /min Dara Butler Jr., DO Work Phone: [facility] 02-06-2023 10:10-0400 SaO2% (BldA) [Mass fraction] 100 % Dara Butler Jr., DO Work Phone: [facility] 02-06-2023 10:10-0400 Systolic blood pressure 101 mm[Hg] Dara Butler Jr., DO Work Phone: [facility] 11-22-2022 10:00-0400 Body height 162.56 cm Silvano Reyez Other [facility] Other 11-22-2022 10:00-0400 Body mass index (BMI) [Ratio] 19.91 kg/m2 Silvano Scovanner Other [facility] Other 11-22-2022 10:00-0400 Body weight 52.62 kg Silvano Scovanner Other [facility] Other 11-22-2022 10:00-0400 Diastolic blood pressure 65 mm[Hg] Silvano Scovanner Other [facility] Other 11-22-2022 10:00-0400 Systolic blood pressure 112 mm[Hg] Silvano Scovanner Other [facility] Other 04-27-2022 14:30-0400 Body height 162.56 cm Jaya Parikh Other [facility] Other 04-27-2022 14:30-0400 Body mass index (BMI) [Ratio] 19.74 kg/m2 Jaya Parikh Other [facility] Other 04-27-2022 14:30-0400 Body weight 52.16 kg Jaya Parikh Other [facility] Other 03-15-2022 15:29-0400 Body height 162.6 cm Phani Presley MD Work Phone: [facility] 03-15-2022 15:29-0400 Body mass index (BMI) [Ratio] 19.6 kg/m2 Phani Presley MD Work Phone: [facility] 03-15-2022 15:29-0400 Body weight 51.8 kg Phani Presley MD Work Phone: [facility] 03-15-2022 15:29-0400 Diastolic blood pressure 60 mm[Hg] Phani Presley MD Work Phone: [facility] 03-15-2022 15:29-0400 Heart rate 74 /min Phani Presley MD Work Phone: [facility] 03-15-2022 15:29-0400 Respiratory rate 18 /min Phani Presley MD Work Phone: [facility] 03-15-2022 15:29-0400 SaO2% (BldA) [Mass fraction] 99 % Phani Presley MD Work Phone: [facility] 03-15-2022 15:29-0400 Systolic blood pressure 100 mm[Hg] Phani Presley MD Work Phone: [facility] 09-27-2021 12:00-0500 Body height 162.56 cm Jaya Parikh Other [facility] Other 09-27-2021 12:00-0500 Body mass index (BMI) [Ratio] 19.74 kg/m2 Jaya Parikh Other [facility] Other 09-27-2021 12:00-0500 Body weight 52.16 kg Jaya Parikh Other [facility] Other 09-27-2021 12:00-0500 Diastolic blood pressure 74 mm[Hg] Jaya Parikh Other [facility] Other 09-27-2021 12:00-0500 Systolic blood pressure 106 mm[Hg] Jaya Parikh Other [facility] Other 05-05-2021 10:30-0400 Body height 162.56 cm Arlene Negro Other [facility] Other 05-05-2021 10:30-0400 Body mass index (BMI) [Ratio] 20.6 kg/m2 Arlene Negro Other [facility] Other 05-05-2021 10:30-0400 Body temperature 99.1 [degF] Arlene Negro Other [facility] Other 05-05-2021 10:30-0400 Body weight 54.43 kg Arlene Negro Other [facility] Other 05-05-2021 10:30-0400 Respiratory rate 18 /min Arlene Negro Other [facility] Other 05-05-2021 10:30-0400 SaO2% (BldA) [Mass fraction] 97 % Arlene Negro Other [facility] Other Encounters Encounter Date Encounter Type Care Provider Facility Start: 06-23-2024 End: 06-23-2024 Telephone encounter Santiago Huffman MD Work Phone: Internal Medicine Comment on above: Appointment Start: 05-14-2024 End: 05-14-2024 Telephone encounter Santiago Huffman MD Work Phone: Ambulatory Surgery Comment on above: Schedule Injection Start: 04-30-2024 End: 04-30-2024 ambulatory ZENON PRETTY Facility:[facility] Start: 04-30-2024 End: 04-30-2024 Patient encounter procedure Zenon Pretty MD Work Phone: Pain Management Comment on above: Right sided abdomina l pain (Primary Dx); Neuralgia and neuritis; Celiac artery compression syndrome (HCC) Start: 04-24-2024 End: 04-24-2024 Telephone encounter Isabelle Menon MD Work Phone: Gastroenterology Comment on above: Appointment (No need for OV with Dr. Menon) Start: 03-26-2024 End: 03-26-2024 Patient encounter procedure Zenon Pretty MD Work Phone: Pain Management Comment on above: APPOINTMENT CANCELLE D (Primary Dx) Start: 03-26-2024 End: 03-26-2024 ambulatory ZENON PRETTY Facility:[facility] Start: 03-19-2024 End: 03-19-2024 ambulatory DO Ana Bookerjarrod Work Phone: [facility] Work Phone: Start: 03-19-2024 End: 03-19-2024 Patient encounter procedure DO Ana Bolton Work Phone: [facility] Work Phone: Start: 03-13-2024 End: 03-13-2024 ambulatory ANALIA HOLLIDAY Facility:[facility] Start: 03-12-2024 End: 05-12-2024 ambulatory Dara Butler Jr., DO Work Phone: Gastroenterology Start: 03-12-2024 End: 05-12-2024 Follow-up encounter Dara Butler DO Work Phone: Gastroenterology Comment on above: Follow Up Start: 02-26-2024 End: 02-26-2024 Patient encounter procedure Bola Braden MD Work Phone: Gastroenterology Comment on above: Epigastric pain (Carrie mukund Dx) Start: 02-26-2024 End: 02-26-2024 ambulatory ANALIA HOLLIDAY Facility:[facility] Start: 02-11-2024 ambulatory DARA BUTLER Facility: [facility] Start: 02-11-2024 End: 02-11-2024 Subsequent hospital visit by physician Gi/Gu 1 [facility] ([facility]) Work Phone: Radiology Comment on above: Upper abdominal pain [R10.10] Start: 02-04-2024 End: 02-04-2024 ambulatory REFUGIO NARAYANANO Not Available Start: 01-30-2024 ambulatory DARA BUTLER Facility: [facility] Start: 01-30-2024 End: 01-30-2024 Subsequent hospital visit by physician Daryl Roberson [facility] 2 Work Phone: [facility] Comment on above: Upper abdominal pain [R10.10] Start: 01-29-2024 Telephone encounter Evelia Harp CNM T [facility] Comment on above: Radiology NM Start: 01-16-2024 ambulatory Isabelle Menon MD Work Phone: Gastroenterology Comment on above: EUS Start: 01-01-2024 End: 01-01-2024 ambulatory Ana Bolton [facility] Work Phone: Start: 01-01-2024 End: 01-01-2024 Departed Referred DO Ana Bolton Work Phone: [facility] Start: 12-28-2023 End: 12-28-2023 ambulatory Dara Butler Jr Facility:[facility] Start: 12-28-2023 End: 12-28-2023 Patient encounter procedure Dara Butler DO Work Phone: Gastroenterology Comment on above: Upper abdominal pain (Primary Dx); Dyspepsia and disorder of function of stomach; Dyspepsia Start: 12-27-2023 End: 12-27-2023 ambulatory Dara Butler Jr Facility:[facility] Start: 12-27-2023 Non-patient / Non-visit DO Pipe Bolton [facility] Work Phone: Start: 12-22-2023 ambulatory Dara Butler DO Work Phone: Gastroenterology Comment on above: Pain Start: 12-13-2023 Refill Dara Butler DO Work Phone: [facility] Comment on above: Refill Request Start: 12-05-2023 End: 12-05-2023 ambulatory ANALIA HOLLIDAY Facility:[facility] Start: 12-05-2023 End: 12-05-2023 Patient encounter procedure Ariella Mccoy STORE CUSTODIAN Work Phone: General Surgery Comment on above: S/P gastrointestinal surgery, follow-up exam (Primary Dx); S/P laparoscopic cholecystectomy Start: 11-29-2023 End: 11-29-2023 ambulatory [facility] Work Phone: Start: 11-29-2023 End: 11-29-2023 Patient encounter procedure [facility] Work Phone: Start: 11-21-2023 End: 11-21-2023 ambulatory ANALIA HOLLIDAY Facility:[facility] Start: 11-15-2023 End: 11-16-2023 ambulatory VIKTORIA CAUSEY Facility:[facility] Start: 11-15-2023 Encounter for other preprocedural examination [facility] Start: 11-15-2023 Non-patient / Non-visit [facility] Work Phone: Start: 11-15-2023 End: 11-15-2023 Admission to establishment [facility] Other Phone: Pre Anesthesia Start: 11-15-2023 End: 11-15-2023 Patient encounter procedure [facility] [address] Other Phone: Pre Anesthesia Comment on above: Pre-op examination ( Primary Dx); Palpitations; Organic anxiety syndrome Start: 11-15-2023 End: 11-15-2023 Preprocedural examination done [address] [address] Other Phone: [facility] Work Phone: Start: 11-15-2023 Telephone encounter Viktoria HOODC Work Phone: Pre Anesthesia Comment on above: Pre-Op Exam Start: 11-07-2023 End: 11-07-2023 ambulatory SEDRICK RUSHING Facility:[facility] Start: 11-05-2023 Telephone encounter Sedrick justice MD Work Phone: Cardiology Comment on above: Patient Question (PV Cs and Frequent ED visits. ) Start: 10-30-2023 Telephone encounter Sedrick justice MD Work Phone: Cardiology Comment on above: Palpitations; ED pt update Start: 10-23-2023 Telephone encounter Seema cooley MD Work Phone: General Surgery Comment on above: Cardiac Clearance Start: 10-22-2023 End: 10-22-2023 ambulatory SEDRICK RUSHING Facility:[facility] Start: 10-22-2023 End: 10-22-2023 Patient encounter procedure Sedrick Rushing MD Work Phone: Cardiology Comment on above: Palpitations (Primar y Dx); Other supraventricular tachycardia (HCC) Start: 10-19-2023 End: 10-19-2023 ambulatory SEEMA DAVIS Facility:[facility] Start: 09-11-2023 Telephone encounter Isabelle chiu MD Work Phone: Gastroenterology Comment on above: Patient Update Start: 09-06-2023 Telephone encounter Isabelle chiu MD Work Phone: [facility] Provider Adult Start: 09-06-2023 ambulatory ANALIA HOLLIDAY Facili ty:[facility] Start: 09-06-2023 End: 09-06-2023 Subsequent hospital visit by physician Isabelle Menon MD Work Phone: [facility] Endoscopy - ENDO Comment on above: Chronic recurrent pa ncreatitis (HCC) [K86.1] Start: 07-05-2023 End: 07-05-2023 ambulatory ANALIA HOLLIDAY Facility:[facility] Start: 06-25-2023 Telephone encounter Large [facility] Procedure Rm 15 Radiology Comment on above: Scans Start: 06-11-2023 ambulatory Isabelle Menon MD Work Phone: Gastroenterology Comment on above: EUS Start: 06-06-2023 End: 06-06-2023 Patient encounter procedure Isabelle Menon MD Work Phone: Gastroenterology Comment on above: RUQ pain (Primary Dx ); History of pancreatitis; Nausea; Diarrhea, unspecified type; History of Clostridium difficile infection Start: 06-01-2023 End: 06-01-2023 ambulatory Analia Holliday Other [facility] Other Start: 06-01-2023 Telephone encounter [facility] Start: 05-30-2023 End: 05-30-2023 Patient encounter procedure DNP Analia Miya Work Phone: [facility] Start: 05-30-2023 End: 05-30-2023 ambulatory DNP Analia Miya Work Phone: [facility] Work Phone: Start: 05-24-2023 End: 05-24-2023 ambulatory Analia Holliday Other [facility] Other Start: 05-24-2023 Encounter for genera l adult medical examination without abnormal findings Analia Holliday [facility] Start: 05-24-2023 Initial preventive medicine new pt age 18-39yrs Analia Holliday [facility] Start: 05-22-2023 End: 05-22-2023 Patient encounter procedure Dara Butler DO Work Phone: Gastgroenterology Comment on above: Chronic pancreatitis , unspecified pancreatitis type (HCC) (Primary Dx); Generalized abdominal pain; Irritable bowel syndrome with diarrhea; History of Clostridioides difficile colitis Start: 05-16-2023 End: 05-16-2023 ambulatory Ordering Provider Other [facility] Other Start: 05-16-2023 Telephone encounter Ordering Nichole sanchez [facility] Start: 05-03-2023 Telephone encounter Dara joshi DO Work Phone: Gastroenterology Comment on above: Results Start: 04-25-2023 ambulatory Jose Luis Hernandez Facility:[facility] Start: 04-14-2023 Telephone encounter Dara joshi DO Work Phone: Gastroenterology Comment on above: Results Start: 04-13-2023 ambulatory DARA BUTLER Facility: [facility] Start: 04-13-2023 End: 04-13-2023 Subsequent hospital visit by physician Ej Daveyview Blossom (I-Stat/1.5t) Work Phone: Radiology Comment on above: Chronic recurrent pa ncreatitis (HCC) [K86.1] Start: 04-12-2023 Telephone encounter Salma Moise (Pas) [facility] Comment on above: APPT REMINDER (APPT REMINDER CALL, LEFT MESSAGE REGARDING DIRECTIONS TO OFFICE AND # IN NEED TO CANCEL) Start: 03-27-2023 End: 03-27-2023 ambulatory Silvano Reyez Other [facility] Other Start: 03-27-2023 Telephone encounter Silvano Castillo [facility] Start: 03-23-2023 End: 03-23-2023 ambulatory Silvano Reyez Other [facility] Other Start: 03-23-2023 Telephone encounter Silvano Castillo [facility] Comment on above: Results Start: 03-22-2023 End: 03-22-2023 ambulatory Silvano Reyez Other [facility] Other Start: 03-22-2023 Telephone encounter Meredith poole MD Work Phone: Rheumatology Comment on above: Results Start: 03-21-2023 Telephone encounter Dara joshi DO Work Phone: Gastroenterology Comment on above: Results Start: 03-20-2023 End: 03-20-2023 ambulatory Silvano Reyez Other [facility] Other Start: 03-20-2023 Telephone encounter Silvano Castillo [facility] Start: 03-15-2023 ambulatory Dara Butler DO Work Phone: Gastgroenterology Comment on above: Pancreas Start: 02-28-2023 ambulatory DARA BUTLER Facility: [facility] Start: 02-06-2023 End: 02-06-2023 Patient encounter procedure Dara Butler DO Work Phone: Gastgroenterology Comment on above: Chronic pancreatitis , unspecified pancreatitis type (HCC) (Primary Dx); Generalized abdominal pain; Intestinal malabsorption, unspecified type Start: 01-09-2023 ambulatory Jose Luis Hernandez Facility:[facility] Start: 12-21-2022 ambulatory Meredith Gee MD Work Phone: Rheumatology Comment on above: update Start: 12-01-2022 End: 12-02-[address] DOCTOR GENTILE Facility:[facility] Start: 11-22-2022 End: 11-22-2022 ambulatory Silvano Reyez Other [facility] Other Start: 11-22-2022 Office outpatient ne w 30 minutes Silvano Reyez [facility] Start: 11-08-2022 End: 11-08-2022 ambulatory Jaya Parikh Other [facility] Other Start: 11-08-2022 Telephone encounter Jaya Parikh [...] . Facility:[facility] Start: 09-20-2022 End: 09-21-2022 ambulatory [facility] Start: 09-12-2022 End: 09-13-[address] DOCTOR GENTILE Facility:[facility] Start: 09-11-2022 End: 09-11-2022 ambulatory [facility] Start: 08-30-2022 End: 08-31-[address] DOCTOR GENTILE Facility:[facility] Start: 08-30-2022 End: 08-30-2022 [facility] Start: 08-24-2022 End: 08-24-[address] KYREE NOGUERA . Facility:[facility] Start: 08-22-2022 End: 08-23-[address] KYREE NOGUERA . Facility:[facility] Start: 08-22-2022 End: 08-22-[address] KYREE NOGUERA . Facility:[facility] Start: 08-21-2022 End: 08-22-[address] KYREE NOGUERA . Facility:[facility] Start: 08-15-2022 End: 08-16-2022 ambulatory [facility] Start: 08-14-2022 End: 08-14-[address] REFUGIO HARRINGTON . Facility:[facility] Start: 08-02-2022 End: 08-02-2022 ambulatory CELY NELSON [facility] Start: 07-28-2022 End: 07-28-2022 ambulatory Jaya Parikh Other [facility] Other Start: 07-28-2022 Telephone encounter aJya Parikh [facility] Start: 07-27-2022 End: 07-27-[address] KYREE NOGUERA . Facility:[facility] Start: 07-13-2022 End: 07-13-[address] KYREE NOGUERA . Facility:[facility] Start: 05-11-2022 End: 05-12-[address] DOCTOR GENTILE Facility:[facility] Start: 05-04-2022 End: 05-04-[address] DOCTOR GENTILE Facility:[facility] Start: 05-01-2022 End: 05-01-[address] DOCTOR GENTILE Facility:[facility] Start: 04-27-2022 End: 04-27-2022 ambulatory Jaya Parikh Other [facility] Other Start: 04-27-2022 Patient encounter procedure Jaya Parikh [facility] Start: 04-17-2022 End: 04-18-[address] KYREE NOGUERA . Facility:[facility] Start: 03-17-2022 End: 03-17-[address] DOCTOR GENTILE Facility:[facility] Start: 03-15-2022 ambulatory PHANI PRESLEY Facility:[facility] Start: 03-15-2022 End: 03-15-2022 Office outpatient new minutes Phani Presley MD Work Phone: [facility] [place] Comment on above: Diarrhea, unspecifie d type (Primary Dx) Start: 02-25-2022 End: 02-25-2022 ambulatory COLBY AUGUSTIN Facility:[facility] Start: 02-01-2022 End: 02-02-[address] DOCTOR GENTILE Facility:[facility] Start: 01-19-2022 End: 01-19-2022 ambulatory Jaya Parikh Other [facility] Other Start: 01-19-2022 Telephone encounter Jaya POTTER [facility] Start: 01-14-2022 End: 01-14-2022 ambulatory COLBY HOY Facility: Start: 12-27-2021 ambulatory REFERRED SELF Facility: [facility] Start: 10-27-2021 End: 10-27-2021 ambulatory Jaya Brerogerremington Other [facility] Other Start: 10-27-2021 Telephone encounter Jaya POTTER [facility] Start: 10-17-2021 End: 10-17-2021 ambulatory Jaya Brerogerremington Other [facility] Other Start: 10-17-2021 Telephone encounter Jaya Parikh [facility]BE[facility] Start: 10-07-2021 ambulatory PHANI SAKINA Facility:[facility] Start: 10-06-2021 End: 10-06-2021 ambulatory Jaya Brerogerremington Other [facility] Other Start: 10-06-2021 Telephone encounter Jaya POTTER [facility] Start: 09-30-2021 End: 09-30-2021 ambulatory Jaya Brerogerremington Other [facility] Other Start: 09-30-2021 Telephone encounter Jaya POTTER [facility] Start: 09-27-2021 End: 09-27-2021 ambulatory Jaya Brerogerremington Other [facility] Other Start: 09-27-2021 FQ[facility] visit new patient Jaya Díazkarine [facility] Start: 05-05-2021 Office outpatient vi sit 15 minutes Arlene Negro [facility] Start: 12-02-2020 End: 12-02-2020 Subsequent hospital visit by physician [facility] Radiology Ct Scan Comment on above: Family history of is chemic heart disease and other diseases of the circulatory system [Z82.49] Procedures Date Procedure Procedure Detail Performing Clinician Start: 03-13-2024 EXTRA MARK-TATIANA CONTAINER PERFORMABLE Dara Butler DO Work Phone: Start: 03-13-2024 EXTRA ECOFIX CONTAINER PERFORMABLE Dara Butler DO Work Phone: Start: 03-13-2024 Inf agent det nucleic acid clostridium amp probe Dara Butler DO Work Phone: Start: 03-13-2024 LAB EXTRA TUBES Dara Butler DO Work Phone: Start: 02-11-2024 XR UPPER GI SINGLE CONTRAST Dara Butler DO Work Phone: Start: 01-30-2024 Gastric emptying imaging study Dara Butler DO Work Phone: Start: 09-06-2023 Esophagoscp rig transoral hypopharynx crv satish Menon MD Work Phone: Start: 04-13-2023 Mri abdomen w/o & w/contrast material Dara Butler DO Work Phone: Start: 12-02-2020 Ct angiography head w/contrast/noncontrast Rickie Naqvi DO Work Phone: Start: 12-02-2020 Ct angiography neck w/contrast/noncontrast Rickie Naqvi DO Work Phone: History of cholecystectomy S/P laparoscopic cholecystectomy Ariella Darius PRACTICE COORDINATOR.STORE CUSTODIAN Work Phone: Plan of Treatment Date Care Activity Detail Author Start: 08-18-2024 End: 08-18-2024 Patient encounter procedure 08/18/2024 1:40 PM EST Office Visit Rheumatology [address] [place] [address] Meredith Gee MD [address] [place] [address] for fatigue fu OV. Rheumatology Comment on above: for fatigue fu OV. Start: 07-04-2024 End: 07-04-2024 Admission to same day surgery center 07/04/2024 7:30 AM EST - 07/04/2024 8:08 AM EST Surgery Ambulatory Surgery [address] [place] [address] Santiago Huffman MD [address] [facility] [place] [address] BLOCK CELIAC PLEXUS WITH C-ARM Ambulatory Surgery Comment on above: BLOCK CELIAC PLEXUS WITH C-ARM Start: 07-04-2024 End: 07-04-2024 Injx anes celiac plexus w/wo radiologic monitrng BLOCK CELIAC PLEXUS WITH C-ARM Right sided abdominal pain Celiac artery compression syndrome (HCC) Neuralgia and neuritis 07/04/2024 7:30 AM EST [facility] [place] Start: 07-04-2024 Subsequent hospital visit by physician 07/04/2024 7:30 AM EST Hospital Encounter Ambulatory Surgery [address] [place] [address] Santiago Huffman MD [address] [place] [address] Right sided abdominal pain [R10.9], Celiac artery compression syndrome (HCC) [I77.4], Neuralgia and neuritis [M79.2] Ambulatory Surgery Comment on above: Right sided abdominal pain [R10.9], Ju ac artery compression syndrome (HCC) [I77.4], Neuralgia and neuritis [M79.2] Start: 06-30-2024 End: 06-30-2024 Patient encounter procedure 06/30/2024 10:30 AM EST Office Visit Pain Management [address] [address] Zenon Pretty MD [address] [place] [address] [address] [place], [place] [id number] follow up Pain Management Comment on above: follow up Start: 06-13-2024 End: 06-13-2024 Patient encounter procedure 06/13/2024 1:20 PM EST Office Visit Gastroenterology [address] [place], [place] [id number] Dara Butler Jr., DO [address] [place] [address] JN -SOONER APPT FOR FOLLOW UP Gastroenterology Comment on above: JN -SOONER APPT FOR FOLLOW UP Start: 05-07-2024 End: 05-07-2024 Patient encounter procedure 05/07/2024 11:45 AM EDT Office Visit Gastroenterology [address] [place] [address] [place] [address] [place] [address] F/U OV Gastroenterology Comment on above: F/U OV Start: 04-30-2024 End: 04-30-2024 Patient encounter procedure 04/30/2024 11:00 AM EDT Office Visit Pain Management [address] [place] [address] Zenon Pretty MD [address] [place] [address] [place] [address] Dr Magnolia claudio referral Pain Management Comment on above: Dr Magnolia claudio referral Start: 03-26-2024 End: 03-26-2024 Patient encounter procedure 03/26/2024 11:00 AM EDT Office Visit Pain Management [address] [place] [address] Zenon Pretty MD [address] [place] [address] [place] [address] Dr Magnolia claudio referral Pain Management Comment on above: Dr Magnolia claudio referral Start: 03-23-2024 Covid-19 Vaccine ( season) Covid-19 Vaccine () [facility] Start: 03-23-2024 Covid-19 Vaccine ( season) Covid-19 Vaccine ( season) [facility] Start: 03-23-2024 Influenza vaccination [facility] Start: 03-18-2024 End: 03-18-2024 Patient encounter procedure 03/18/2024 1:00 PM EDT Office Visit Gastroenterology [address] [address] Bola Braden MD [address] [place] [address] Pancreatitis second opinion Gastroenterology Comment on above: Pancreatitis second opinion Start: 03-14-2024 End: 03-14-2024 Patient encounter procedure 03/14/2024 10:00 AM EDT Office Visit Gastroenterology [address] [facility] [address] Dara Butler Jr., DO [address] [place] [address] follow upo Gastroenterology Comment on above: follow upo Start: 02-11-2024 End: 02-11-2024 Patient encounter procedure 02/11/2024 9:30 AM EDT Appointment Radiology [address] [place] [address] : XR UPPER GI SINGLE CONTRAST Radiology Comment on above: : XR UPPER GI SINGLE CONTRAST Start: 02-01-2024 End: 02-01-2024 Patient encounter procedure 02/01/2024 3:00 PM EDT Office Visit Gastroenterology [address] [place] [address] Dara Butler Jr., DO [address] [place] [address] JN -SOONER APPT FOR FOLLOW UP Gastroenterology Comment on above: JN -SOONER APPT FOR FOLLOW UP Start: 01-30-2024 End: 01-30-2024 Patient encounter procedure 01/30/2024 8:30 AM EDT Appointment [facility] [address] [place] [address] Gastric Emptying Study Weight 115 / Patient not Diabetic / Order in EPIC // DX: Upper abdominal pain [R10.10] [facility] Comment on above: Gastric Emptying Study Weight 115 / Nancy ent not Diabetic / Order in EPIC // DX: Upper abdominal pain [R10.10] Start: 01-09-2024 End: 01-09-2024 Patient encounter procedure 01/09/2024 8:30 AM EDT Appointment [facility] [address] [place] [address] Weight 115 / Patient not Diabetic / Order in EPIC // DX: Upper abdominal pain [R10.10] [facility] Comment on above: Weight 115 / Patient not Diabetic / Orde r in EPIC // DX: Upper abdominal pain [R10.10] Start: 12-28-2023 End: 12-28-2023 Patient encounter procedure 12/28/2023 3:00 PM EDT Office Visit Gastroenterology [address] [place] [address] Dara Butler Jr., [address] [place] [address] abdominal pain- add per JN Gastroenterology Comment on above: abdominal pain- add per JN Start: 12-27-2023 End: 12-27-2023 ambulatory 12/27/2023 10:00 AM EDT Results Only [facility] [address] [place] [address] [place] [address] [facility] Start: 12-26-2023 End: 03-26-2024 Amylase [Enzymatic activity/volume] in Serum or Plasma AMYLASE Lab Routine Generalized abdominal pain History of acute pancreatitis Expected: 12/26/2023, Expires: 03/26/2024 [facility] Comment on above: Expected: 12/26/2023, Expires: Start: 12-26-2023 End: 03-26-2024 C reactive protein [Mass/volume] in Serum or Plasma C-REACTIVE PROTEIN Lab Routine Generalized abdominal pain History of acute pancreatitis Expected: 12/26/2023, Expires: 03/26/2024 [facility] Comment on above: Expected: 12/26/2023, Expires: Start: 12-26-2023 End: 03-26-2024 CBC W Auto Differential panel - Blood COMPLETE BLOOD COUNT AND DIFFERENTIAL Lab Routine Generalized abdominal pain History of acute pancreatitis Expected: 12/26/2023, Expires: 03/26/2024 [facility] Comment on above: Expected: 12/26/2023, Expires: Start: 12-26-2023 End: 03-26-2024 Comprehensive metabolic 2000 panel - Serum or Plasma COMPREHENSIVE METABOLIC PANEL Lab Routine Generalized abdominal pain History of acute pancreatitis Expected: 12/26/2023, Expires: 03/26/2024 [facility] Work Phone: Comment on above: Expected: 12/26/2023, Expires: Start: 12-26-2023 End: 03-26-2024 Erythrocyte sedimentation rate SEDIMENTATION RATE, WESTERGREN Lab Routine Generalized abdominal pain History of acute pancreatitis Expected: 12/26/2023, Expires: 03/26/2024 [facility] Comment on above: Expected: 12/26/2023, Expires: Start: 12-26-2023 End: 03-26-2024 Lipase [Enzymatic activity/volume] in Serum or Plasma LIPASE Lab Routine Generalized abdominal pain History of acute pancreatitis Expected: 12/26/2023, Expires: 03/26/2024 [facility] Comment on above: Expected: 12/26/2023, Expires: Start: 12-10-2023 End: 12-10-2023 Patient encounter procedure 12/10/2023 12:20 PM EDT Office Visit Rheumatology [address] [place] [address] Meredith Gee MD [address] [facility] [place] [place], [place] [id number] for fatigue fu OV. Rheumatology Comment on above: for fatigue fu OV. Start: 11-21-2023 End: 11-21-2023 Admission to same day surgery center 11/21/2023 3:15 PM EDT - 11/21/2023 5:45 PM EDT Surgery [facility] Operating Room [address] [place] [address] [place] [address] [address] LAPAROSCOPIC CHOLECYSTECTOMY [facility] Operating Room Comment on above: LAPAROSCOPIC CHOLECYSTECTOMY Start: 11-21-2023 End: 11-21-2023 Laparoscopy surg cholecystectomy LAPAROSCOPIC CHOLECYSTECTOMY Cholecystitis 11/21/2023 3:15 PM EDT [facility] Start: 11-21-2023 Subsequent hospital visit by physician 11/21/2023 3:15 PM EDT Hospital Encounter [facility] Operating Room [address] [place] [id number] [place] [address] [facility] [address] [place] [address] Cholecystitis [K81.9] [facility] Operating Room Comment on above: Cholecystitis [K81.9] Start: 07-23-2023 Behavioral Health Screening Behavioral Health Screening [facility] Start: 07-23-2023 Depression Assessment Depression Assessment [facility] Start: 03-23-2023 Covid-19 Vaccine () Covid-19 Vaccine () [facility] Start: 03-23-2023 Influenza vaccination [facility] Start: 02-06-2023 End: 04-08-2023 Amylase [Enzymatic activity/volume] in Serum or Plasma AMYLASE BLD Lab Routine Generalized abdominal pain Chronic pancreatitis, unspecified pancreatitis type (HCC) Intestinal malabsorption, unspecified type Expected: 02/06/2023, Expires: 04/08/2023 [facility] Work Phone: Comment on above: Expected: 02/06/2023, Expires: 3 Start: 02-06-2023 End: 04-08-2023 CELIAC SCREEN WITH REFLEX CELIAC SCREEN WITH REFLEX Lab Routine Generalized abdominal pain Chronic pancreatitis, unspecified pancreatitis type (HCC) Intestinal malabsorption, unspecified type Expected: 02/06/2023, Expires: 04/08/2023 [facility] Work Phone: Comment on above: Expected: 02/06/2023, Expires: 3 Start: 02-06-2023 End: 04-08-2023 Comprehensive metabolic 2000 panel - Serum or Plasma COMP METABOLIC PANEL Lab Routine Generalized abdominal pain Chronic pancreatitis, unspecified pancreatitis type (HCC) Intestinal malabsorption, unspecified type Expected: 02/06/2023, Expires: 04/08/2023 [facility] Work Phone: Comment on above: Expected: 02/06/2023, Expires: 3 Start: 02-06-2023 End: 04-08-2023 IGG SUBCLASS 1,2,3,4 IGG SUBCLASS 1,2,3,4 Lab Routine Generalized abdominal pain Chronic pancreatitis, unspecified pancreatitis type (HCC) Intestinal malabsorption, unspecified type Expected: 02/06/2023, Expires: 04/08/2023 [facility] Work Phone: Comment on above: Expected: 02/06/2023, Expires: 3 Start: 02-06-2023 End: 04-08-2023 Lipase [Enzymatic activity/volume] in Serum or Plasma LIPASE BLD Lab Routine Generalized abdominal pain Chronic pancreatitis, unspecified pancreatitis type (HCC) Intestinal malabsorption, unspecified type Expected: 02/06/2023, Expires: 04/08/2023 [facility] Work Phone: Comment on above: Expected: 02/06/2023, Expires: 3 Start: 02-06-2023 End: 04-08-2023 Lipid 1996 panel - Serum or Plasma LIPID PANEL BASIC Lab Routine Generalized abdominal pain Chronic pancreatitis, unspecified pancreatitis type (HCC) Intestinal malabsorption, unspecified type Expected: 02/06/2023, Expires: 04/08/2023 [facility] Work Phone: Comment on above: Expected: 02/06/2023, Expires: 3 Start: 02-06-2023 End: 04-08-2023 Nuclear Ab [Presence] in Serum by Immunoassay PHANI BLOOD Lab Routine Generalized abdominal pain Chronic pancreatitis, unspecified pancreatitis type (HCC) Intestinal malabsorption, unspecified type Expected: 02/06/2023, Expires: 04/08/2023 [facility] Work Phone: Comment on above: Expected: 02/06/2023, Expires: 3 Start: 07-23-2022 DEPRESSION ASSESSMENT DEPRESSION ASSESSMENT [facility] Start: 07-20-2022 End: 07-20-2022 Patient encounter procedure 07/20/2022 Office Visit Gastroenterology Phani Presley MD [address] [place] [address] [facility] [place] Start: 03-23-2022 Influenza vaccination INFLUENZA VACCINE (#1) [facility] Start: 03-15-2022 End: 03-15-2023 C DIFFICILE BY PCR (CLOSTRIDIUM DIFFICILE TOXIN) C DIFFICILE BY PCR (CLOSTRIDIUM DIFFICILE TOXIN) Microbiology Routine Diarrhea, unspecified type Expected: 03/15/2022, Expires: 03/15/2023 [facility] Comment on above: Expected: 03/15/2022, Expires: 3 Start: 03-15-2022 End: 03-15-2023 MOLECULAR ENTERIC PANEL, STOOL MOLECULAR ENTERIC PANEL, STOOL Fluids Routine Diarrhea, unspecified type Expected: 03/15/2022, Expires: 03/15/2023 [facility] Comment on above: Expected: 03/15/2022, Expires: 3 Start: 09-06-2021 COVID-19 VACCINE (3 - Booster for Pfizer series) COVID-19 VACCINE (3 - Booster for Pfizer series) [facility] Start: 06-01-2021 COVID-19 VACCINE (3 - Booster for Pfizer series) COVID-19 VACCINE (3 - Booster for Pfizer series) [facility] Start: 06-01-2021 COVID-19 VACCINE (3 - Pfizer series) COVID-19 VACCINE (3 - Pfizer series) [facility] Start: 02-07-2021 Urine microalbumin profile DTaP,Tdap,Td Vaccine (7 - Td or Tdap) [facility] Start: 11-18-2019 PAP TESTING PAP TESTING [facility] Start: 11-18-2019 Screening for malignant neoplasm of cervix [facility] Start: 2017 Third diphtheria, tetanus and acellular pertussis (DTaP) vaccination TDAP (ADULT) [facility] Start: 2017 Urine microalbumin profile [facility] Start: 2016 Depression Screening Depression Screening [facility] Start: 2016 HIV SCREENING HIV SCREENING [facility] Start: 2016 HIV screening HIV Screening [facility] Start: 2016 Tetanus vaccination TETANUS [facility] Start: 2014 Meningococcal B Vaccine: Consider Based On Risk (1 of 2 - Patient Seeks Protection) Meningococcal B Vaccine: Consider Based On Risk (1 of 2 - Patient Seeks Protection) [facility] Start: 2014 MENINGOCOCCAL B: Consider based on risk (1 of 2 - Patient Seeks Protection) MENINGOCOCCAL B: Consider based on risk (1 of 2 - Patient Seeks Protection) [facility] Start: 2014 Screening for Chlamydia trachomatis CHLAMYDIA SCREEN [facility] Start: 2013 HIV screening HIV SCREENING DISCUSSION [facility] Start: 2012 PEDS TO ADULT TRANSITION ANNUAL ASSESSMENT PEDS TO ADULT TRANSITION ANNUAL ASSESSMENT [facility] Start: 08-15-2011 HPV Vaccine (3 - 2-dose series) HPV Vaccine (3 - 2-dose series) [facility] Start: 2010 PEDS TO ADULT TRANSITION INITIAL DISCUSSION PEDS TO ADULT TRANSITION INITIAL DISCUSSION [facility] Start: 2009 Vaccination for human papillomavirus HPV VACCINE ADOL (1 - 2-dose series) [facility] Start: 2008 MENINGOCOCCAL B: Consider based on risk (1 of 2 - Risk Bexsero 2-dose series) MENINGOCOCCAL B: Consider based on risk (1 of 2 - Risk Bexsero 2-dose series) [facility] Start: 11-18-2007 HPV VACCINE (1 - 2-dose series) HPV VACCINE (1 - 2-dose series) [facility] Start: 1998 GONORRHEA SCREEN GONORRHEA SCREEN [facility] Start: 1998 HEPATITIS B (1 of 3 - 3-dose series) HEPATITIS B (1 of 3 - 3-dose series) [facility] Start: 1998 Hepatitis B Vaccine (1 of 3 - 3-dose series) Hepatitis B Vaccine (1 of 3 - 3-dose series) [facility] Start: 1998 Hepatitis C antibody, confirmatory test HEPATITIS C VIRUS SCREENING [facility] End: 07-12-2024 Ct angio abd&plvis cntrst mtrl w/wo cntrst img CTA ABD/PEL W IVCON Radiology Routine Generalized abdominal pain RUQ pain Chronic recurrent pancreatitis (HCC) Diarrhea, unspecified type 1 Occurrences starting 06/13/2023 until 07/12/2024 [facility] Work Phone: Comment on above: 1 Occurrences starting 06/13/2023 until 07/12/2024 End: 10-21-2024 Echocardiography ECHO Cardiology Routine Other supraventricular tachycardia (HCC) Palpitations 1 Occurrences starting 10/22/2023 until 10/21/2024 [facility] Work Phone: Comment on above: 1 Occurrences starting 10/22/2023 until 10/21/2024 End: 04-14-2024 Mri abdomen w/o & w/contrast material MRI ABDOMEN WO/W IVCON Radiology Routine Chronic recurrent pancreatitis (HCC) 1 Occurrences starting 03/16/2023 until 04/14/2024 [facility] Work Phone: Comment on above: 1 Occurrences starting 03/16/2023 until 04/14/2024 End: 01-26-2025 NM Stomach Views for gastric emptying solid phase W radionuclide PO NM GASTRIC EMPTYING SOLID Radiology Routine Upper abdominal pain Dyspepsia and disorder of function of stomach Dyspepsia 1 Occurrences starting 12/28/2023 until 01/26/2025 [facility] Comment on above: 1 Occurrences starting 12/28/2023 until 01/26/2025 OUTSIDE VENDOR CARDI AC OUTPATIENT EXTENDED RHYTHM RECORDING (WITHOUT TELEMETRY) OUTSIDE VENDOR CARDIAC OUTPATIENT EXTENDED RHYTHM RECORDING (WITHOUT TELEMETRY) Holter Routine Other supraventricular tachycardia (HCC) Palpitations Ordered: 10/22/2023 [facility] Work Phone: Comment on above: Ordered: 10/22/2023 End: 01-26-2025 RF Gastrointestinal tract upper Views W barium contrast PO XR UPPER GI SINGLE CONTRAST Radiology Routine Upper abdominal pain Dyspepsia and disorder of function of stomach 1 Occurrences starting 12/28/2023 until 01/26/2025 [facility] Work Phone: Comment on above: 1 Occurrences starting 12/28/2023 until 01/26/2025 [facility] Payers Date Payer Category Payer Self-pay 2022 Unknown [id number] 2020 Unknown [id number] 2019 Unknown [id number] 2. [id number] 1998 Unknown [id number] 2.16.8 40.1.066098.3.579.2.647 1998 Unknown [id number] 2.16. 840.1.075650.3.579.2.594 1998 Unknown [id number] 2.16. 840.1.589450.3.579.2.594 1998 Unknown [id number] 2.16.84 0.1.885069.3.579.2.593 1998 Unknown [id number] 2.16.84 0.1.943141.3.579.2.593 1998 Unknown [id number] 2.16.84 0.1.836933.3.579.2.593 1998 Unknown [id number] 2.16.84 0.1.042891.3.579.2.593 1998 Unknown [id number] 2.16.84 0.1.258112.3.579.2.593 1998 Unknown [id number] 2.16.84 0.1.345277.3.579.2.593 1998 Unknown [id number] 2.16.84 0.1.029975.3.579.2.593 1998 Unknown [id number] 2.16.84 0.1.242100.3.579.2.593 1998 Unknown [id number] 2.16.84 0.1.328175.3.579.2.593 1998 Unknown [id number] 2.16.84 0.1.793363.3.579.2.593 1998 Unknown [id number] 2.16.84 0.1.204099.3.579.2.593 1998 Unknown [id number] 2.16.84 0.1.906738.3.579.2.593 1998 Unknown [id number] 2.16.84 0.1.846410.3.579.2.593 1998 Unknown [id number] 2.16.84 0.1.677715.3.579.2.593 1998 Unknown [id number] 2.16.84 0.1.044750.3.579.2.593 1998 Unknown [id number] 2.16.84 0.1.146761.3.579.2.593 1998 Unknown [id number] 2.16.84 0.1.530604.3.579.2.593 1998 Unknown [id number] 2.16.84 0.1.022132.3.579.2.593 1998 Unknown [id number] 2.16.84 0.1.966256.3.579.2.593 1998 Unknown [id number] 2.16.84 0.1.561208.3.579.2.593 1998 Unknown [id number] 2.16.84 0.1.113869.3.579.2.593 1998 Unknown [id number] 2.16.84 0.1.279944.3.579.2.593 1998 Unknown [id number] 2.16.84 0.1.252326.3.579.2.593 1998 Unknown [id number] 2.16.84 0.1.154082.3.579.2.593 1998 Unknown [id number] 2.16.84 0.1.928405.3.579.2.593 1998 Unknown [id number] 2.16.84 0.1.262262.3.579.2.593 1998 Unknown [id number] 2.16.84 0.1.895274.3.579.2.593 1998 Unknown [id number] 2.16.84 0.1.401959.3.579.2.593 1998 Unknown [id number] 2.16.84 0.1.827645.3.579.2.593 1998 Unknown [id number] 2.16.84 0.1.469652.3.579.2.593 1998 Unknown [id number] 2.16.84 0.1.942749.3.579.2.593 1998 Unknown [id number] 2.16.84 0.1.202583.3.579.2.593 1998 Unknown [id number] 2.16.84 0.1.252076.3.579.2.1259 Unknown [id number] 2.16.8 40.1.805725.3.579.2.531 Unknown [id number] 2.16.8 40.1.221490.3.579.2.531 Social History Date Type Detail Facility Unknown if ever smoked [facility] Start: 12-08-2022 End: 02-06-2023 Sex Assigned At [facility] Start: 03-15-2022 End: 11-15-2023 Tobacco smoking status NHIS Never smoked tobacco [facility] Start: 03-15-2022 End: 11-15-2023 Tobacco use and exposure Smokeless tobacco non-user [facility] Start: 03-15-2022 Alcohol intake Current drinker of alcohol (finding) [facility] Start: 03-15-2022 History SDOH Alcohol Comment social [facility] Start: 1998 Sex Assigned At Not on file [facility] Start: 12-08-2022 Tobacco smoking status NHIS Ex-smoker [facility] History of tobacco use Current smoker [facility] Start: 2000 Sex Assigned At Female [facility] Start: 12-08-2022 End: 02-06-2023 History of Social function [facility] Adult Depression Screening Assessment 1 [facility] Start: 12-02-2020 Gender identity Identifies as female gender (finding) [facility] Start: 12-02-2020 Sexual orientation Heterosexual (finding) [facility] Tobacco smoking stat us NHIS Tobacco smoking consumption unknown [facility] Start: 06-06-2023 End: 04-30-2024 Alcohol intake Ex-drinker (finding) [facility] Start: 11-15-2023 Alcohol Comment socially- rare [facility] Clinical Notes 12-02-2020 to 06-23-2024 Telephone Encounter - Shu Wilkins - 06/23/2024 4:53 PM ESTTelephone Encounter - Shu Wilkins - 06/23/2024 4:53 PM ESTTelephone Encounter - Bonny Joyner - 06/23/2024 10:36 AM EST Note Date & Type Note Facility 06-23-2024 Telephone encounter Note Case message sent to surgery pool to cancel with Dr. Huffman 07/04 per patient request. [facility] 06-23-2024 Miscellaneous Notes Case message sent to surgery pool to cancel with Dr. Huffman 07/04 per patient request. PT called asking to cancel their procedure scheduled on 07/04/2024. Please review and advise. Thank you! documented in this encounter [facility] 06-23-2024 Telephone encounter Note PT called asking to cancel their procedure scheduled on 07/04/2024. Please review and advise. Thank you! [facility] 05-14-2024 Telephone encounter Note diagnostic celiac plexus blockade ROSA ALONZO [id number] [facility] 07/04 -[facility] -DM Patient was made aware that the ASC will call the day prior to scheduled procedure between the hours of 12 and 4 pm to advise patient of arrival time the day of procedure. Patient was advised that they will require a hazmat cdl a driver on the day of their procedure, and procedure will be cancelled if they arrive without a responsible adult to transport them home from the procedure. Patient advised that all medication management instructions prior to procedure will need addressed by clinical staff. Patient expresses understanding with no further questions or concerns at this time. [facility] 05-14-2024 Miscellaneous Notes diagnostic celiac plexus blockade ROSA ALONZO [id number] [facility] 07/04 -[facility] -DM Patient was made aware that the ASC will call the day prior to scheduled procedure between the hours of 12 and 4 pm to advise patient of arrival time the day of procedure. Patient was advised that they will require a hazmat cdl a driver on the day of their procedure, and procedure will be cancelled if they arrive without a responsible adult to transport them home from the procedure. Patient advised that all medication management instructions prior to procedure will need addressed by clinical staff. Patient expresses understanding with no further questions or concerns at this time. documented in this encounter [facility] 05-14-2024 Telephone encounter Note OPENED IN ERROR [facility] 05-14-2024 Miscellaneous Notes OPENED IN ERROR documented in this encounter [facility] 04-30-2024 Note HNO ID: [id number] Author: ZENON PRETTY MD Service: ? Author Type: Anesthesiologist Type: Progress Notes Filed: 05/13/2024 18:15 Note Text: Referring Or Consulting Physician: CHIEF COMPLAINT: pain in my abdomen and lower to mid back pain HPI: This is a 23 year old female here for evaluation of pain that began 2 years ago following no particular inciting event. At this point, the pain is located in the areas detailed above (see cc). The patient describes the pain as aching and is a 4/10 in severity. It is intermittent. The pain is exacerbated by eating and activity. The pain is mitigated by not eating. The patient is currently taking the following medications for pain: nothing The patient previously has taken the following medications for pain: motrin and tylenol Symptoms interfere with physical activity, work, sexual relations, walking, sleeping, sitting, bathing, driving, cooking, household cleaning, reaching for shelves, lifting, and social activities. The patient denies denies red flags. In the last 6 months, Physical Therapy/Home Exercise Completed?: No Relevant [place] records were reviewed by physicianyejarrod Opioid Agreement: No Receiving Disability Income: Yes Last Date/Time Patient had Opioid Medication: No Previous Xrays?: Yes Is the patient receiving analgesia/pain relief from the current medications? (No) Has the current medication improved activities such as walking or standing? (No) Have the current medications been associated with any adverse events? (No) Illicit drug use? (No) Patient denies loss of bowel or bladder control, unintentional weight loss, h/o malignancy, fevers/chills/night sweats. PAST MEDICAL HISTORY Diagnosis Date Pancreatitis PAST SURGICAL HISTORY Procedure Laterality Date COLONOSCOPY EGD ENDOMETRIAL WASHINGS laproscopicaly LAPAROSCOPIC CHOLECYSTECTOMY 11/21/2023 Social History Tobacco Use Smoking status: Never Smokeless tobacco: Never Vaping Use Vaping status: Never Used Substance Use Topics Alcohol use: Not Currently Comment: socially- rare Drug use: Not Currently Types: Marijuana Comment: rare edible FH: Patient denies a family history of the current chief complaint. ALLERGIES Allergen Reactions Metronidazole Mental Status Change, Diarrhea, GI Upset, Hives, Other: See Comments, Rash, Shortness of Breath, Unknown, Vomiting Current Outpatient Medications Medication Sig dicyclomine (BENTYL) 20 mg tablet Take 1 tablet by mouth two times a day. escitalopram oxalate (LEXAPRO) 10 mg tablet Take 5 mg by mouth once daily. ondansetron (ZOFRAN) 4 mg tablet Take 4 mg by mouth as needed. amitriptyline (ELAVIL) 25 mg tablet take 1 tablet by mouth everyday at bedtime (Patient not taking: Reported on 04/30/2024) pantoprazole DR (PROTONIX) 40 mg tablet TAKE 1 TABLET BY MOUTH EVERY DAY (Patient not taking: Reported on 04/30/2024) No current facility-administered medications for this visit. Questionnaires: Patient Entered Questionnaires PROMIS Score Percentiles 12/07/2022 11/08/2023 02/21/2024 PROMIS Global Health Scale Physical Health Percentile 15 15 7 Mental Health Percentile 26* 34 26* 12/07/2022 03/19/2024 04/29/2024 Physical Health Physical Function Percentile 27* 27* 34 Pain Interference Percentile 16* 27* 27* Percentiles provide an indication of how the patient's score ranks in relation to the general population. Higher percentile rankings indicate better function/quality of life. 50th percentile is the average of the general population and indicates half of respondents had a worse score. > 31st percentile is within normal limits or better * < 31st percentile is at least ? SD worse than population, which may be clinically relevant < 16th percentile is at least 1 SD worse than population and warrants attention Depression Screenin11/12/2020 PHQ-9 Score 5 11/12/2020 PHQ-9 Self Harm Question 9 Not at all PHQ-9 Self-Harm (Item 9) response options: 0 Not at all 1 Several days 2 More than half the days 3 Nearly every day PHQ-9 Levels: 0-4 Minimal depression 5-9 Mild depression 10-14 Moderate depression 15-19 Moderately severe depression 20-27 Severe depression PHQ-9 Score 11/12/2020 5 (0-4) minimal depression, (5-9) mild depression, (10-14) moderate depression, (15-19) moderately severe depression, (20-27) severe depression No data to display No data to display The following information was personally collected by me, Zenon Pretty MD on April 30, 2024 10:40 AM (electronically signed): Imaging Studies: IMPRESSION: Normal rate of gastric emptying of a solid meal. However patient consumed less than the standard meal, (more content not included)... [facility] 04-30-2024 History of Present illness Narrative Images from the original note were not included. Referring Or Consulting Physician: CHIEF COMPLAINT: pain in my abdomen and lower to mid back pain HPI: This is a 23 year old female here for evaluation of pain that began 2 years ago following no particular inciting event. At this point, the pain is located in the areas detailed above (see cc). The patient describes the pain as aching and is a 4/10 in severity. It is intermittent. The pain is exacerbated by eating and activity. The pain is mitigated by not eating. The patient is currently taking the following medications for pain: nothing The patient previously has taken the following medications for pain: motrin and tylenol Symptoms interfere with physical activity, work, sexual relations, walking, sleeping, sitting, bathing, driving, cooking, household cleaning, reaching for shelves, lifting, and social activities. The patient denies denies red flags. In the last 6 months, Physical Therapy/Home Exercise Completed?: No Relevant [place] records were reviewed by physicianyes Opioid Agreement: No Receiving Disability Income: Yes Last Date/Time Patient had Opioid Medication: No Previous Xrays?: Yes ---- Is the patient receiving analgesia/pain relief from the current medications? (No) Has the current medication improved activities such as walking or standing? (No) Have the current medications been associated with any adverse events? (No) Illicit drug use? (No) ---- Patient denies loss of bowel or bladder control, unintentional weight loss, h/o malignancy, fevers/chills/night sweats. PAST MEDICAL HISTORY Diagnosis Date Pancreatitis PAST SURGICAL HISTORY Procedure Laterality Date COLONOSCOPY EGD ENDOMETRIAL WASHINGS laproscopicaly LAPAROSCOPIC CHOLECYSTECTOMY 11/21/2023 Social History Tobacco Use Smoking status: Never Smokeless tobacco: Never Vaping Use Vaping status: Never Used Substance Use Topics Alcohol use: Not Currently Comment: socially- rare Drug use: Not Currently Types: Marijuana Comment: rare edible FH: Patient denies a family history of the current chief complaint. ALLERGIES Allergen Reactions Metronidazole Mental Status Change, Diarrhea, GI Upset, Hives, Other: See Comments, Rash, Shortness of Breath, Unknown, Vomiting Current Outpatient Medications Medication Sig dicyclomine (BENTYL) 20 mg tablet Take 1 tablet by mouth two times a day. escitalopram oxalate (LEXAPRO) 10 mg tablet Take 5 mg by mouth once daily. ondansetron (ZOFRAN) 4 mg tablet Take 4 mg by mouth as needed. amitriptyline (ELAVIL) 25 mg tablet take 1 tablet by mouth everyday at bedtime (Patient not taking: Reported on 04/30/2024) pantoprazole DR (PROTONIX) 40 mg tablet TAKE 1 TABLET BY MOUTH EVERY DAY (Patient not taking: Reported on 04/30/2024) No current facility-administered medications for this visit. Questionnaires: Patient Entered Questionnaires PROMIS Score Percentiles 12/07/2022 11/08/2023 02/21/2024 PROMIS Global Health Scale Physical Health Percentile 15 15 7 Mental Health Percentile 26* 34 26* 12/07/2022 03/19/2024 04/29/2024 Physical Health Physical Function Percentile 27* 27* 34 Pain Interference Percentile 16* 27* 27* Percentiles provide an indication of how the patient's score ranks in relation to the general population. Higher percentile rankings indicate better function/quality of life. 50th percentile is the average of the general population and indicates half of respondents had a worse score. > 31st percentile is within normal limits or better * < 31st percentile is at least SD worse than population, which may be clinically relevant < 16th percentile is at least 1 SD worse than population and warrants attention Depression Screenin11/12/2020 PHQ-9 Score 5 11/12/2020 PHQ-9 Self Harm Question 9 Not at all PHQ-9 Self-Harm (Item 9) response options: 0 Not at all 1 Several days 2 More than half the days 3 Nearly every day PHQ-9 Levels: 0-4 Minimal depression 5-9 Mild depression 10-14 Moderate depression 15-19 Moderately severe depression 20-27 Severe depression PHQ-9 Score 11/12/2020 5 (0-4) minimal depression, (5-9) mild depression, (10-14) moderate depression, (15-19) moderately severe depression, (20-27) severe depression No data to display No data to display The following information was personally collected by me, Zenon Pretty MD on April 30, 2024 10:40 AM (electronically signed): Imaging Studies: IMPRESSION: Normal rate of gastric emptying of a solid meal. However patient consumed less than the standard meal, which lowers the sensitivity of the study. Staff Counselor: FRANCISCO Transcribe Date/Time: Jan 30 2024 2:09P Dictated by : JOSELUIS MORA MD This examination was interpreted and the report reviewed and electronically signed by: JOSELUIS MORA MD on Jan 30 2024 2:10PM EST Results-Findings * * *Final Report* * * DATE OF EXAM: Jan 30 2024 1:51PM N 0017 - NM GASTRIC EMPTYING SOLID / [...] was used to plot a time-activity curve. 07/05/2023 12:45 PM - Radiology, [place] In Impression IMPRESSION: Likely physiologic extrinsic compression of the [...] any questions regarding this interpretation, please call [phone]. If you are unable to reach us at the number above, please feel free to contact [facility] at [phone]. Results-Findings * * *Final Report* * * DATE OF EXAM: Jul 05 2023 11:20AM [facility] 0311 - CTA ABD/PELV W IVCON [...] fluid collection. Bones/Soft Tissues: No significant finding. Credit Risk Modeler (topogram) images: No additional findings. Result History CTA ABD/PEL W IVCON (Order #[id number]) on 07/05/2023 - Order Result History R I personally reviewed the above imaging findings, and discussed them with the patient in detail. REVIEW OF SYSTEMS: GENERAL: weight loss (+), malaise(+), fevers (=) HEENT: thrush(-), epistaxis(-) NECK: Negative for neck swelling. RESPIRATORY: Negative for cough, wheezing or shortness of breath (-). CARDIOVASCULAR: chest pain(-), leg swelling(-) or palpitations(-) GI: abdominal discomfort(+), blood in stools/melena/change in bowel habits(-). MUSCULOSKELETAL: joint pain(-), swelling(-), back pain(+) , muscle pain(-). SKIN: (-) for lesions, rash, and itching. PSYCH: sleep disturbance(-), mood disorder(-), recent psychosocial stressors(-). HEMATOLOGY/LYMPHOLOGY: Negative for prolonged bleeding, easy bruising, or swollen nodes (-) NEURO: headaches(-), syncope(-), paralysis(-), seizures(-), tremors () All other reviewed and negative other than HPI. OBJECTIVE: BP 108/74 Pulse 86 Resp 18 Ht 162.6 cm (5' 4 ) Wt 49.9 kg (110 lb) LMP 01/30/2024 (Approximate) BMI 18.88 kg/m GENERAL: Well appearing, in no acute distress PSYCH: Mood and affect is appropriate. Awake, alert, and oriented x 3 SKIN: Skin color, texture, turgor normal, no rashes or lesions HEENT: Normocephalic, atraumatic. PERRLA. RESP: Respirations are unlabored CARD: Regular rate. Cap refill <2s. Extremities well perfused at nailbed GI: TTP epigastrium. Carnett (-) MSK: Bilateral upper and lower extremity strength is normal and symmetric. No atrophy or tone abnormalities are noted Cervical: (-)pain to palpation over the cervical paraspinal muscles. Spurling is (-). (-)pain with neck flexion, extension or rotation. Rotation is full on right and left. Axial Loading Test negative, Cruz's sign negative. No obvious deformity or signs of trauma. Normal cervical lordotic curve and full flexion and extension of cervical spine. Lumbar: Straight leg raising in the sitting position is (-) for radicular pain. (-)pain to palpation lumbar paraspinal muscles. Facet loading is (-) bilaterally. (-) pain to palpation over the PSIS, sacroiliac joint provocative maneuvers are (-) for pain reproduction bilaterally. Extremities: Peripheral joint ROM is full and pain free without obvious instability or laxity in all four extremities. No deformities, edema, or skin discoloration. Good capillary refill. Gait: Gait is smooth NEURO: Bilateral upper and lower extremity coordination are intact. Muscle stretch reflexes are physiologic and symmetric. Plantar response are downgoing. No loss of sensation is noted. ASSESSMENT AND MEDICAL DECISION MAKING: This is a 23 year old female with epigastric post-prandial abdominal pain CT demonstrating extrinsic celiac artery compression. referred for diagnostic celiac plexus blockade as she is contemplating a MAL release surgery. PMH significant for acute pancreatitis (unknown etiology, age 14). No problems thereafter for many years -----> developed C. Diff s/p fecal txp ----> continued ongoing diarrhea, nausea, vomiting. S/P GB removal ---> appendicitis as noted above she had CTA, GES, barium swallow, Primary symptom is diarrhea, back pain radiating to right side. She is scheduled for the injection and evaluation coming up. Early satiety low appetite, 130 lbs ---> 110 lbs. EUS pancreas. Takes zofran and bentyl prn 3 times/week. Last colonoscopy in [place] and normal. No response to creon Fecal elastase test normal, some benefit from Bentyl. Tried amitriptyline 25mg qhs without benefit Sx Worse around her period. PMH of endometriosis s/p surgery for this ?nutcracker syndrome ?pelvic congestion Dx: Right sided abdominal pain (primary encounter diagnosis) Neuralgia and neuritis Celiac artery compression syndrome (hcc) PLAN: trial of gabapentin agree with diagnostic celiac plexus blockade Return to clinic (in-person office visit or virtual visit/telemedicine) after all above completed fully. - I spent a total of 60 minutes on the date of the service which included: *preparing to see the patient *esui-dr-pyze patient care *completing clinical documentation *obtaining and/or reviewing separately obtained history *performing a medically appropriate examination *counseling and educating the patient/family/caregiver *ordering medications, tests, or procedures *communicating with other HCPs (not separately reported) *independently interpreting results (not separately reported) *communicating results to the patient/family/caregiver *care coordination (not separately reported). Of this, greater than 50% of this was spent in the presence of the patient for purposes of education and counseling regarding the diagnosis and treatment of pain. Patient is aware that any diagnostic testing is best discussed in person to fully explain the significance and resulting treatment plan. Patient is aware that they will need a follow up office visit/virtual visit for proper care. I answered the patient's questions regarding this. I discussed healthy habits, lifestyle changes and physical activity as well as disease prevention/maintenance, including where applicable the impact of tobacco/illicit drugs on pain and its treatment. It will be communicated with the referring or consulting physician above via electronic record, fax, or mail. Patient agrees with above. Zenon Pretty MD April 30, 2024 documented in this encounter [facility] 04-24-2024 Telephone encounter Note Pt of Dr. Butler. Pt is scheduled with Dr. Menon for f/u OV 05/07/2024 (made on 12/12/2023). No need for f/u OV with Dr. Menon. Continue f/u with Dr. Butler as well as Dr. Ambriz (gen surg ). Attempted to call pt, no answer. Left detailed voice msg that OV with be cancelled. Instructed to call back with any questions. Gisela Ponce RN [facility] Work Phone: 04-24-2024 Miscellaneous Notes Pt of Dr. Butler. Pt is scheduled with Dr. Menon for f/u OV 05/07/2024 (made on 12/12/2023). No need for f/u OV with Dr. Menon. Continue f/u with Dr. Butler as well as Dr. Ambriz (gen surg ). Attempted to call pt, no answer. Left detailed voice msg that OV with be cancelled. Instructed to call back with any questions. Gisela Ponce RN documented in this encounter [facility] 03-26-2024 Note HNO ID: [id number] Author: ZENON PRETTY MD Service: ? Author Type: Anesthesiologist Type: Progress Notes Filed: 03/26/2024 12:27 Note Text: power outage in building appt rescheduled Zenon Pretty MD [facility] 03-26-2024 History of Present illness Narrative power outage in building appt rescheduled Zenon Pretty MD documented in this encounter [facility] 03-12-2024 Telephone encounter Note Call placed to patient to relay below message, patient verbalized understanding. Order for c.diff placed Dara Butler Jr., DO [facility] 03-12-2024 Miscellaneous Notes Call placed to patient to relay below message, patient verbalized understanding. Order for c.diff placed Dara Butler Jr., DO Patient calling in requesting an order for C-Diff test. States she had it 1.5 years ago, and thinks its back again Started having watery stools 3-4 days ago- reports 6 episodes in 24 hours Denies blood Reports intermittent abdominal pain/cramping- 6/10 Unsure about fever, but states she has had chills Denies recent antibiotic use. States diarrhea has as a c- diff odor . Advised bland diet, increase fluids, and discussed s/s of dehydration. ER for worsening symptoms or sign of dehydration Please advise, patient would like callback with recommendations/order documented in this encounter [facility] 03-12-2024 Telephone encounter Note Patient calling in requesting an order for C-Diff test. States she had it 1.5 years ago, and thinks its back again Started having watery stools 3-4 days ago- reports 6 episodes in 24 hours Denies blood Reports intermittent abdominal pain/cramping- 12/30 Unsure about fever, but states she has had chills Denies recent antibiotic use. States diarrhea has as a c- diff odor . Advised bland diet, increase fluids, and discussed s/s of dehydration. ER for worsening symptoms or sign of dehydration Please advise, patient would like callback with recommendations/order [facility] 02-26-2024 History of Present illness Narrative New [...] which included preparing to see the patient, gffh-lr-pmxi patient care, completing clinical documentation, obtaining and/or reviewing separately obtained history, performing a medically appropriate examination, counseling and educating the patient/family/caregiver, and independently interpreting results (not separately reported). Bola Braden MD February 26, 2024 error documented in this encounter [facility] 02-26-2024 Note HNO ID: [id number] Author: BOLA BRADEN MD Service: ? Author [...] Systems Gastroenterology (Submi (more content not included)... [facility] 02-26-2024 Note HNO ID: [id number] Author: BOLA BRADEN MD Service: ? Author Type: Physician Type: Progress Notes Filed: 02/26/2024 18:47 Note Text: error [facility] 02-26-2024 Nurse Note What is the reason for your visit today? Consult Who is your referring physician? None Are you having poor oral intake? NO Have you had unintentional weight loss of 15 lbs/7 Kg in the last 3-6 months? NO Bowels: diarrhea or regular Wound: None Temperature: No Drains: No [facility] 02-26-2024 Nurse Note What is the reason for your visit today? Consult Who is your referring physician? None Are you having poor oral intake? NO Have you had unintentional weight loss of 15 lbs/7 Kg in the last 3-6 months? NO Bowels: diarrhea or regular Wound: None Temperature: No Drains: No documented in this encounter [facility] 02-11-2024 History of Present illness Narrative Radiology [...] PATIENT PRESENTS WITH AN IMPLANTABLE OR ATTACHED WAGE ANALYST: No RADIOLOGY DEPARTMENT: General X-ray: Exam(s) Completed: GI/ Procedure(s): Upper GI with barium contrast PERIPHERAL IV DATA: Not applicable SIGNED BY: MATEO Lu) February 11, 2024 9:44 AM documented in this encounter [facility] 02-11-2024 Note HNO ID: [id number] Author: WAYNE TEMPLETON RT(R) Service: ? Author [...] PATIENT PRESENTS WITH AN IMPLANTABLE OR ATTACHED WAGE ANALYST: No RADIOLOGY DEPARTMENT: General X-ray: Exam(s) Completed: GI/ Procedure(s): Upper GI with barium contrast PERIPHERAL IV DATA: Not applicable SIGNED BY: RT Tabitha(Laura) February 11, 2024 9:44 AM [facility] 01-30-2024 History of Present illness Narrative [...] PATIENT PRESENTS WITH AN IMPLANTABLE OR ATTACHED WAGE ANALYST: No CREATININE: Creatinine Date Value Ref Range [...] [address] PERFORMED: No IV SITE: NC only - not applicable, oral or physician administered agents given to patient POST EXAM PIV STATUS: Not applicable PROCEDURE TYPE: NM GET: 1.1 mCi Tc99m SULFUR COLLOID was administered orally via 4 oz eggbeaters and 4 ounces of water orally. ADMINISTRATION TIME: 826 PATIENT DISCHARGED TO: Ambulatory patient, left [place] department area. A Diagnostic radioactive procedure has taken place, with no further precautions necessary other than routine body substance precautions. More information regarding radiation safety can be found using this link: [email or web address] [email or web address]-%20Diagnostic%20Nuclear%20 Medicine%20Procedures.pdf SIGNATURE: MARTÍN De La Rosa PATIENT NAME: Rosa Alonzo DATE: January 30, 2024 TIME: 10:38 AM PAGER/CONTACT #: documented in this encounter [facility] 01-30-2024 Note HNO ID: [id number] Author: EVELIA HARP CNMT Service: ? Author Type: Foundry Helper Type: Progress Notes Filed: 01/30/2024 10:40 Note [...] PATIENT PRESENTS WITH AN IMPLANTABLE OR ATTACHED WAGE ANALYST: No CREATININE: Creatinine Date Value Ref Range [...] [address] PERFORMED: No IV SITE: NC only - not applicable, oral or physician administered agents given to patient POST EXAM PIV STATUS: Not applicable PROCEDURE TYPE: NM GET: 1.1 mCi Tc99m SULFUR COLLOID was administered orally via 4 oz eggbeaters and 4 ounces of water orally. ADMINISTRATION TIME: 826 PATIENT DISCHARGED TO: Ambulatory patient, left [place] department area. A Diagnostic radioactive procedure has taken place, with no further precautions necessary other than routine body substance precautions. More information regarding radiation safety can be found using this link: [email or web address]%20Prote ction%20-% 20Diagnostic%20Nuclear%20Medicine%2 0Procedures.pdf SIGNATURE: MARTÍN De La Rosa PATIENT NAME: Rosa Alonzo DATE: January 30, 2024 TIME: 10:38 AM PAGER/CONTACT #: [facility] 01-29-2024 Telephone encounter Note SPOKE WITH PT TO CONFIRM APT TO AND EXPLAIN THE EXAM AND ANY PREP. [facility] 01-29-2024 Miscellaneous Notes SPOKE WITH PT TO CONFIRM APT TO AND EXPLAIN THE EXAM AND ANY PREP. documented in this encounter [facility] 12-28-2023 Instructions Dara Butler Jr., DO - 12/28/2023 3:15 PM EDT Check gastric emptying study Check Upper GI series Start amitriptyline Start pantoprazole Stop Carafate May use Levbid as needed documented in this encounter [facility] 12-28-2023 History of Present illness Narrative No [...] an issue, start amitriptyline. Consider referral to [facility] if symptoms fail to improve. Although [...] notes per Dr. Butler as follows Rosa Puentese, 22 year old female, for followup. She [...] last colonoscopy was 8 months ago in [place]. Start amitriptyline Keep appt with Dr. Menon [...] divisum. 12/01/22 HIDA scan was done at [facility]: Normal study EF 69% US: 10/31/22: [...] with 350 mL of normal saline. 08/02/22 [facility] Gastroenterology Rosa Alonzo is a [...] Lymph 1.00 - 4.00 k/uL 2.43 2.06 [place]% % 8.4 8.1 Abs [place] <0.87 k/uL 0.47 0.42 Eosin% % 3.4 [...] Dara Butler Jr. documented in this encounter [facility] 12-28-2023 Note HNO ID: [id number] Author: DARA BUTLER JR, DO Service: ? [...] an issue, start amitriptyline. Consider referral to [facility] if symptoms fail to improve. Although [...] last colonoscopy was 8 months ago in [place]. Start amitriptyline Keep appt with Dr. Menon [...] divisum. 12/01/22 HIDA scan was done at [facility]: Normal study EF 69% US: 10/31/22: (care everywhere) Liver normal Gallbaldder appears normal with no stones or sludge. No gallbladder wall thickening CBD 1.[address] abd/pel w/IV cont: 10/18/22: (scanned): Liver: no enlargement, atrophy, or focal lesion Biliary: no dilation or calcification Pancreas: haziness and p (more content not included)... [facility] 12-26-2023 Telephone encounter Note Please see [...] and advise. Thank you Analia Estevez RN [facility] 12-26-2023 Miscellaneous Notes Please see attached message [...] Analia Estevez RN documented in this encounter [facility] 12-24-2023 Telephone encounter Note Maintain Levbid. Start Carafate. Ok to move up appt to December. Dara Butler Jr., DO Please call pt to set up an office visit in December, may use hold spot if needed. Thank you. Analia Estevez RN [facility] 12-24-[address] Butler, would you prefer to see pt sooner in December? She was started on Levbid recently with no real improvement and requesting sooner office visit? Wondering if she might benefit from seeing functional medicine? Please review and advise. Analia Estevez RN [facility] 12-05-2023 History of Present illness Narrative Images [...] or concerns that may arise. Follow up: KAERN Mccoy APRN.DIOR documented in this encounter [facility] 12-05-2023 Note HNO ID: [id number] Author: ARIELLA MCCOY APRN.DIOR Service: ? Author Type: Nurse Practitioner Type: [...] that may arise. Follow up: KAREN Mccoy APRN.STORE CUSTODIAN [facility] 12-05-2023 Nurse Note What is the [...] clean & dry Temperature: No Drains: No [facility] 12-05-2023 Nurse Note What is the reason [...] No Drains: No documented in this encounter [facility] 11-21-2023 Note HNO ID: [id number] Author: ?, ?, ? Service: ? Author Type: ? Type: Plan of Care Filed: 11/26/2023 17:37 Note Text: PHARMACY BEDSIDE DELIVERY SERVICE Patient Name: Rosa Alonzo The marked outpatient medications were filled and picked up at [facility] Medication List START taking these medications [...] them or your Primary Care Provider. Miguel Mark (Collection Systems Worker) PAGER: [phone] November 26, 2023 5:37 PM [facility] 11-21-2023 Note HNO ID: [id number] Author: MARVIN MARQUIS APRN.CRNA Service: Anesthesiology Author Type: Nurse Grocery Manager Type: Anesthesia Procedure Notes Filed: 11/21/2023 14:23 Note Text: ANESTHESIOLOGY PROCEDURE NOTE Airway General Information Procedure Start Time/Medication Administration: 11/21/2023 2:14 PM Procedure End Time: 11/21/2023 2:22 PM Patient location during procedure: OR Timeout Performed Pre-procedure: timeout performed Patient identity confirmed: arm band, care cleaning team member and patient Staffing Anesthesiologist: Moshe Krishnamurthy DO STEM FRAZER: Marvin Marquis APRN.STEM FRAZER Performed by: ROMAIN Indications and Patient Condition [...] lips and teeth intact. SIGNATURE: Marvin Marquis APRN.STEM FRAZER PATIENT NAME: Rosa Alonzo DATE: November 21, 2023 TIME: 2:22 PM CSN: [id number] [facility] 11-16-2023 Telephone encounter Note Images from [...] surgery. Hope this helps! Augustus Rushing MD [facility] 11-16-2023 Miscellaneous Notes Images from the original [...] as scheduled? Event monitor preliminary reading in EPIC View Cardiac Outpatient Recording/Telemetry [ID [id number]] ECHO completed in EPIC. Of note she also has been to the ED 2 times for her palpitations since your visit, with c/o of palpations intermittently throughout the day. she denies associated SOB or dizziness. She reports her symptoms have not changed. Thank you, Viktoria Causye PA-C [facility] documented in this encounter [facility] 11-15-2023 Telephone encounter Note Plan: - Vitals [...] a cardiac standpoint. Per his last OV [facility] 11-15-2023 Telephone encounter Note Images from the original note were not included. Greetings Dr. Rushing , Your patient was seen for preanesthesia consult 11/15/2023. Rosa Alonzo is scheduled for LAPAROSCOPIC CHOLECYSTECTOMY with Dr. Seema Davis on 11/21/2023. Do you feel they are medically optimized and ok to proceed as scheduled? Event monitor preliminary reading in EPIC View Cardiac Outpatient Recording/Telemetry [ID [id number]] ECHO completed in EPIC. Of note she also has been to the ED 2 times for her palpitations since your visit, with c/o of palpations intermittently throughout the day. she denies associated SOB or dizziness. She reports her symptoms have not changed. Thank you, Viktoria Causey PA-C [facility] 11-15-2023 History and physical note HISTORY AND [...] SOB. Pulse today 75, regular rhythm today [id number] 0 Ejection Fraction - Result: 63 % [...] COVID-19 original vaccine, age 12+ yr, monovalent (bizsol - PURPLE TOP) 03/16/2021 Imm Admin: COVID-19 original vaccine, age 12+ yr, monovalent (bizsol - PURPLE TOP) REVIEW OF SYSTEMS: positive findings are BOLD PAIN ASSESSMENT: Pain Pain Level: 5 Pain Location: Back-Lower Description: Aching Duration Units: Months Frequency: Continuous Intervention/Comfort measure: Relaxation, Heat General: No weight loss, malaise or fevers. Neuro: No history of TIA's, stroke, AIRCRAFT DELIVERY CHECKER tumor, impaired sensorium, hemiplegia, paraplegia or quadraplegia. No neurological symptoms or problems. Respiratory: No history of current cough or dyspnea, or pneumonia in the past 6 weeks. No history of respiratory/pulmonary symptoms or problems. Cardiovascular: Palpitations (SVT) Negative for Recent [place], CAD, CHF, HTN Negative for chest pain, [...] 402 QTC Calculation (Bazett) 424 Calculated P [place] 76 Calculated R [place] 37 Calculated T [place] 57 Impression NORMAL SINUS RHYTHM WITH SINUS ARRHYTHMIA POSSIBLE LEFT ATRIAL ENLARGEMENT RSR' PATTERN IN V1 SUGGESTS INCOMPLETE RIGHT BUNDLE BRANCH BLOCK BORDERLINE ECG NO PREVIOUS ECGS AVAILABLE Confirmed by JENNIFER SURESH MD ([id number]) on 10/22/2023 1:00:28 PM Most recent Echo Recent Results (from the past 21630 hour(s)) ECHO Collection Time: 11/07/23 1:59 PM [...] were present. Isolated VEs were frequent (6.9%, 71521), VE Couplets were rare (<1.0%, 21), and no VE Triplets were present. Ventricular Bigeminy and Trigeminy were present. Instructions Given to Patient: Instructions located in the after visit summary. Patient given verbal and written preop instructions and voices comprehension and compliance. SIGNATURE: Viktoria Causey PA-C PATIENT NAME: Rosa Alonzo DATE: 11/15/2023 TIME: 2:43 PM [facility] 11-15-2023 History and physical note HISTORY AND [...] SOB. Pulse today 75, regular rhythm today [id number] 0 Ejection Fraction - Result: 63 % [...] Prior to Admission medications as of 11/15/23 8850 Medication Sig Last Dose Taking dicyclomine (BENTYL) [...] Covid Immunization Dates Overdue - Covid-19 Vaccine (2022- season) Overdue since 03/23/2023 04/06/2021 Imm Admin: COVID-19 original vaccine, age 12+ yr, monovalent (PFIZER-BIONTECH - PURPLE TOP) 03/16/2021 Imm Admin: COVID-19 original vaccine, age 12+ yr, monovalent (PFIZER-BIONTECH - PURPLE TOP) REVIEW OF SYSTEMS: positive findings are BOLD PAIN ASSESSMENT: Pain Pain Level: 5 Pain Location: Back-Lower Description: Aching Duration Units: Months Frequency: Continuous Intervention/Comfort measure: Relaxation, Heat General: No weight loss, malaise or fevers. Neuro: No history of TIA's, stroke, AIRCRAFT DELIVERY CHECKER tumor, impaired sensorium, hemiplegia, paraplegia or quadraplegia. No neurological symptoms or problems. Respiratory: No history of current cough or dyspnea, or pneumonia in the past 6 weeks. No history of respiratory/pulmonary symptoms or problems. Cardiovascular: Palpitations (SVT) Negative for Recent [place], CAD, CHF, HTN Negative for chest pain, [...] 402 QTC Calculation (Bazett) 424 Calculated P [place] 76 Calculated R [place] 37 Calculated T [place] 57 Impression NORMAL SINUS RHYTHM WITH SINUS ARRHYTHMIA POSSIBLE LEFT ATRIAL ENLARGEMENT RSR' PATTERN IN V1 SUGGESTS INCOMPLETE RIGHT BUNDLE BRANCH BLOCK BORDERLINE ECG NO PREVIOUS ECGS AVAILABLE Confirmed by JENNIFER SURESH MD ([id number]) on 10/22/2023 1:00:28 PM Most recent Echo Recent Results (from the past 49730 hour(s)) ECHO Collection Time: 11/07/23 1:59 PM [...] were present. Isolated VEs were frequent (6.9%, 44296), VE Couplets were rare (<1.0%, 21), and no VE Triplets were present. Ventricular Bigeminy and Trigeminy were present. Instructions Given to Patient: Instructions located in the after visit summary. Patient given verbal and written preop instructions and voices comprehension and compliance. SIGNATURE: Viktoria Causey PA-C PATIENT NAME: Rosa Alonzo DATE: 11/15/2023 TIME: 2:43 PM documented in this encounter [facility] 11-12-2023 Instructions Viktoria Causey PA-C - 11/12/2023 9:12 AM EDT PATIENT PREOPERATIVE INSTRUCTIONS Seema Davis MD has scheduled you for your procedure at this surgery center: [facility]: [phone] --[address] [address]. Please check in on the 1st floor [...] Procedures: - YOU MUST HAVE A RESPONSIBLE SMALL MACHINE BINDERY OPERATOR TAKE YOU HOME. A AIR CONDITIONING SHEET METAL INSTALLER OR CUTTER AND PRESSER CANNOT BE MADE A RESPONSIBLE SMALL MACHINE BINDERY OPERATOR. - We recommend that a responsible person stays with you overnight to take care of you. - You cannot stay in a hotel alone after outpatient surgery. You will not be permitted to have your surgery, if you do not have someone to take care of you. If you already have an Advance Directive, please fax a copy to [phone] or email to for it to be [...] Viktoria Causey PA-C documented in this encounter [facility] 11-05-2023 Miscellaneous Notes Spoke with Ms Alonzo over the phone. For now, I will wait for the results of the Zio and the Echo and will reach back out. There is a chance that she may need to see EP, but I would like to see how frequently she is in Bigeminy. documented in this encounter [facility] 11-01-2023 Miscellaneous Notes Called and spoke to [...] ongoing symptoms Staying hydrated Concerned Call CELL [phone] Leave Detailed messages The pt is calling. Please review the my chart message from today for an EKG attachment she sent from her ED visit last night. She went to the [place] ED. Are you able to revue her [...] message. Thank you documented in this encounter [facility] 10-23-2023 Miscellaneous Notes Received form requesting cardiac evaluation for surgical clearance from [facility] General Surgery with Dr. Seema Davis. Surgery Date: 11-21-2023 Fax to [facility] General Surgery: [phone] Rushing to review. CHATO Ramirez documented in this encounter [facility] 10-23-[address] Sedrick Rushing's office for cardiac clearance at [phone]. Abnormal heart sounds with gallbladder consult on 3/29/24. Received confirmation. Sent to scanning documented in this encounter [facility] 10-22-2023 Nurse Note EVENT MONITOR DISPOSABLE PATCH INSTRUCTIONS Patient Name: Rosa Alonzo [facility] Number: [id number] Skin prepped and cleansed with alcohol Patch secured to prepped area Monitor Activated Serial #: [id number] Patient Instructed: Prescribed order timeframe Bathing guidelines Usage of event button and diary documentation Return of monitor at the end of prescribed order Call with problems [phone] or [phone]. [phone] Patient expresses a good understanding of instructions Azael Larson LPN documented in this encounter [facility] 10-22-2023 History of Present illness Narrative Images from the original note were not included. [facility] [place] [facility] Department of Cardiovascular Medicine SECTION OF REGIONAL CARDIOLOGY OUTPATIENT VISIT DATE October 21, 2023 OUTPATIENT VISIT TYPE NEW CONSULTATION PRIMARY CARE PHYSICIAN: Analia Holliday [address] [place] [address] CHIEF COMPLAINT: Palpitations HISTORY OF PRESENT ILLNESS: [...] Shortness of Breath, Unknown, Vomiting CURRENT MEDICATIONS: bwujno-nxqabyqi-ewystmm (CREON) 24,000-76,000 -120,000 unit delayed release capsule [...] on File Prior to Visit Medication Sig pebdtd-qyeulhzu-omswvbs (CREON) 24,000-76,000 -120,000 unit delayed release capsule [...] Sedrick Rushing MD [facility]ovascular [facility] [address] [facility] [place] [address] documented in this encounter [facility] 10-22-2023 Note HNO ID: [id number] Author: SEDRICK RUSHING MD Service: ? Author Type: Physician Type: Progress Notes Filed: 10/22/2023 15:17 Note Text: [facility] [place] [facility] Department of Cardiovascular Medicine SECTION OF REGIONAL CARDIOLOGY OUTPATIENT VISIT DATE October 21, 2023 OUTPATIENT VISIT TYPE NEW CONSULTATION PRIMARY CARE PHYSICIAN: Analia Holliday [address] [facility] [place] [address] CHIEF COMPLAINT: Palpitations HISTORY OF PRESENT ILLNESS: [...] Shortness of Breath, Unknown, Vomiting CURRENT MEDICATIONS: oebokq-ocpvecyo-efbnrok (CREON) 24,000-76,000 -120,000 unit delayed release capsule [...] on File Prior to Visit Medication Sig tgzghv-rypbzmly-avajlwk (CREON) 24,000-76,000 -120,000 unit delayed release capsule [...] Rushing MD Cardiovascular Medicine Staff [facility] [address] [place] [address] [facility] 10-19-2023 Note HNO ID: [id number] Author: DAXA GRAY RN Service: ? Author [...] Daxa Gray RN In Department: GENERAL SURGERY [facility] 10-19-2023 Note HNO ID: [id number] Author: DAXA GRAY RN Service: ? Author Type: Registered Nurse Type: Progress Notes Filed: 10/21/2023 21:18 Note Text: New patient consult for gallbladder. Referred by Dr. Sinan MD. General note: A 22 year old female seen by gastroenterology on 11/15/23. C/c: RU ABD pain radiates to back AND acute pancreatitis. 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 This measurement is within normal limits [facility] 10-19-2023 Note HNO ID: [id number] Author: SEEMA DAVIS MD Service: ? Author [...] Take 4 mg by mouth as needed. 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 Lives with her . [...] the date of the service which included oxmm-ks-nqjd patient care, completing clinical documentation, obtaining and/or reviewing separately obtained history, performing a medically appropriate examination, counseling and educating the patient/family/caregiver, and independently interpreting results (not separately reported). Seema Davis MD . [facility] 10-19-2023 Note Education (JOHANNYisel) ROSA ALONZO ([id number]) 2000 F Date Time Provider Department 10/19/23 DAXA GRAY Reason for Visit: Education Of Patient/family [904] Primary Visit Diagnosis:Acalculous cholecystitis [K81.9] Order(s):PT ED DIGESTIVE DISEASE [2172620] Order #: [id number]: 1 During your visit today, we recorded [...] Fully Assessed Prescriptions as of 10/19/2023 - uemqan-hleeiihl-qtlissg (CREON) 24,000-76,000 -120,000 unit delayed release capsule [...] Encounter Status:Closed by DAXA GRAY on 10/19/23 [facility] 09-11-2023 Miscellaneous Notes Please refer to [facility] dated 09/11/2023. Gisela Ponce RN Patient calling to see if she is to follow up with Dr. Menon. He did recommend surgeon consult for cholecystectomy. Patient is asking for referral Please adivse patient documented in this encounter [facility] 09-06-2023 Nurse Note 1345 Pt in Endo [...] REFERRAL (RECOMMENDATION): None documented in this encounter [facility] 09-06-2023 History and physical note PROCEDURAL SEDATION [...] mouth once daily. 09/05/2023 at 1000 Yes lmluhy-yrrjhisb-jvqehbn (CREON) 24,000-76,000 -120,000 unit delayed release capsule [...] TIME: 12:20 PM documented in this encounter [facility] 07-05-2023 Note HNO ID: [id number] Author: Mckenzie Heck RT(R) Service: Radiology Author [...] Exam(s) Completed: CTA Abdomen Pelvis SIGNATURE: Mckenzie Heck RT(R) PATIENT NAME: Rosa Alonzo DATE: July 05, 2023 TIME: 10:58 AM [facility] 06-17-2023 Miscellaneous Notes To summarize the [...] understanding. She will call and schedule CTA. ronnie Little can hold off scheduling EUS until Dr. Menon reviews CTA. He states pt may need EGD and colonoscopy and if so she can have these done with Dr. Butler. Pt is aware. 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 I will recommend CT-angiography to r/o gut [...] Gisela Ponce RN documented in this encounter [facility] 06-06-2023 History and physical note Images from [...] her mother who works as in at [employer] [facility] [employer]. The problem started when she was [...] an issue, start amitriptyline. Consider referral to [facility] if symptoms fail to improve. 1. [...] divisum. 12/01/22 HIDA scan was done at [facility]: Normal study EF 69% US: 10/31/22: [...] with 350 mL of normal saline. 08/02/22 [facility] Gastroenterology Rosa Alonzo is a [...] Abs Lymph 1.00 - 4.00 k/uL 2.17 Walworth% % 8.1 Abs [place]worth <0.87 k/uL 0.36 Eosin% % 5.6 Abs [...] Menon MD, FACP documented in this encounter [facility] 06-01-2023 Evaluation note Encounter Date Diagnosis Assessment Notes May, Vitamin D insufficiency (ICD-10 - E55.9) [facility] Other 11-02-2023 Evaluation note* Encounter Date Diagnosis Assessment Notes Treatment Notes Treatment Clinical Notes May, Well adult exam (ICD-10 - Z00.00) Routine lab work ordered. She will follow up with eye doctor due to some floaters that she is having. Follow routinely with dentist and FUNDRAISING SPECIALIST. Specialty notes reviewed as received. Patient is [...] Lexapro 10 mg daily. Will continue this. [facility] Other 10-31-2023 Instructions* Patient Instructions* Dara Butler Jr., DO - 05/22/2023 11:39 AM EDT Start amitriptyline Keep appt with Dr. Menon for pancreatic / biliary clinic [facility] History of Present illness Narrative* Dara Butler [...] last colonoscopy was 8 months ago in [place]. Past GI workup 05/08/23 ER visit notes [...] 8:00 AM EDT Office Visit [facility] [place] [address] Kyree Noguera MD Abnormal flushing and sweating [...] per patient. She sees a specialist to [facility] doctor Butler for GI- currently awaiting genetic [...] dicyclomine 12/01/22 HIDA scan was done at [facility]: Normal study EF 69% US: 10/31/22: [...] with 350 mL of normal saline. 08/02/22 [facility] Gastroenterology Rosa Alonzo is a [...] (PCR) (04/02/2023 10:00 AM EDT) Results - [facility] GI PANEL (PCR) (04/02/2023 10:00 AM EDT) Pathologist [facility] CAMPYLOBACTER NOT DETECTED NOT DETECTE [facility] CLOSTRIDIUM [...] Abs Lymph 1.00 - 4.00 k/uL 2.17 Walworth% % 8.1 Abs [place] <0.87 k/uL 0.36 Eosin% % 5.6 Abs [...] BY MOUTH THREE TIMES DAILY WITH MEALS kqkzbx-cdehkgou-xniauxj (ZENPEP) 40,000-126,000- 168,000 unit delayed release capsule [...] an issue, start amitriptyline. Consider referral to [facility] if symptoms fail to improve. 1. [...] studies Dara Butler Jr. [facility] Miscellaneous Notes* Telephone Encounter - Analia Estevez [...] Dara Butler Jr., DO [facility] Miscellaneous Notes* Telephone Encounter - Analia Estevez RN - 04/14/2023 9:23 AM EDT Patient has viewed results per [employer]. Analia Estevez RN * Telephone Encounter - Analia Estevez RN - 04/14/2023 9:23 AM EDT ----- Message from Dara Butler Jr., DO sent at 04/13/2023 4:04 PM EDT ----- MRI negative for pancreatitis and anatomic pancreatic abnormalities. Dara Butler Jr., DO documented in this [facility]23 Miscellaneous Notes* [facility] - Yessi Adkins, acid pumper - 04/13/2023 2:40 PM EDT Radiology Service Progress Note DATE OF SERVICE: [...] DEPARTMENT: MR; Exam(s) Completed: Body: Pancreas/Biliary SIGNATURE: EJ Hernandez PATIENT NAME: Rosa Alonzo DATE: April 13, 2023 TIME: 3:13 PM documented in this encounter[facility]09-[facility]23 Progress note* [facility] - Yessi Adkins MRI Tech - 04/13/2023 2:40 PM EDT Radiology Service Progress Note DATE OF SERVICE: [...] DEPARTMENT: MR; Exam(s) Completed: Body: Pancreas/Biliary SIGNATURE: EJ Hernandez PATIENT NAME: Rosa Alonzo DATE: April 13, 2023 TIME: 3:13 PM [facility]09-08-2023 Miscellaneous Notes* Telephone Encounter - Analia Estevez RN - 03/30/2023 10:33 AM EDT Patient has viewed results per [employer]. Analia Estevez RN * Telephone Encounter - [...] CDIFF. She had this testing done through [facility]. She is working on getting faxed results to office. Pt states she feels fine, no symptoms but would like to follow up with nurse. Please advise Patient has been identified by name and birthdate. Duration of symptoms: N/A Person calling: self Call patient at: at home [phone] (home) [phone] (cell) Was an appointment scheduled: No Closing statement: Results or non-symptom based questions: Thank you for calling [facility], your call will be returned within the next business day. Eva Wynne documented in [facility]09-[facility]-2023 Evaluation note* Encounter Date Diagnosis Assessment Notes Treatment Notes Treatment Clinical Notes Mar, Diarrhea (ICD-10 - R19.7) [facility] Other 09-01-2023 Evaluation note* Encounter Date Diagnosis Assessment Notes Treatment Notes Treatment Clinical Notes Mar, C. difficile diarrhea (ICD-10 - A04.72) [facility] Other 09-01-2023 Miscellaneous Notes* Telephone Encounter - Bryson Arredondo MA - 03/23/2023 7:59 AM EDT Pt was notified via . * Telephone Encounter - Meredith Gee MD - 03/22/2023 9:36 PM EDT Please Call patient if MyChart note not read to review results/released to My Chart if tests completed at [facility]: Improved/Normal labs and no inflammation. Take [...] hepatitis panel, quantiferon tb; documented in this [facility]08-30-2023 Miscellaneous Notes* Telephone Encounter - Analia Estevez RN - 03/21/2023 11:02 AM EDT Results were viewed by patient per [employer]. Analia Estevez RN * Telephone Encounter - Analia Estevez RN - 03/21/2023 11:00 AM EDT ----- Message from Dara Butler Jr., DO sent at 03/21/2023 7:46 AM EDT ----- Labs essentially unremarkable including negative celiac Dara Butler Jr., DO documented in this encounter[facility]08-29-2023 Evaluation note* Encounter Date Diagnosis Assessment Notes Treatment Notes Treatment Clinical Notes Feb, Diarrhea (ICD-10 - R19.7) [facility] Other 08-25-2023 Miscellaneous Notes* Telephone Encounter - Analia Estevez RN - 03/16/2023 12:38 PM EDT Per our discussion please review and sign orders for MRI per out discussion based off [employer] message per patient. Analia Estevez RN documented in this encounter[facility]07-18-2023 Instructions* Patient Instructions* Dara Butler Jr., DO - 02/06/2023 10:35 AM EDT Check labs Start Levbid Start Zenpep Stop dicyclomine documented in this encounter[facility]07-[facility]23 History of Present illness Narrative* Dara Butler Jr., DO - 02/06/2023 10:30 AM EDT Consultation requested by Meredith Gee for an opinion regarding abd pain. My [...] GI office visit: 09/11/22 (care everywhere): Dr. Rehna Driver Rosa Alonzo is a 21 y.o. [...] REFLEX Dara Butler Jr. documented in this encounterPark[facility]06-05-2023 Miscellaneous Notes* Telephone Encounter - Ana Eckert - 12/25/2022 10:22 AM EDT Spoke with patient Scheduled Consult to GI for first avail at [place] in January Did not schedule Med Gen Consult. Still pending review- patient said she will schedule when she sees Dr Luke Eckert December 25, 2022 10:27 AM * Telephone Encounter - Bryson Arredondo MA - 12/25/2022 9:22 AM EDT Pt has been notified via [employer] * Telephone Encounter - Meredith Gee MD - 12/23/2022 12:53 AM EDT Please call patient. Thank you for the update and your kind words. Sorry to hear about your discomfort. Placed a consult to medical genetics and GI as requested. May schedule at your convenience. Hope you feel better soon! Warm regards, :) documented in this encounter[facility]05-[facility]-2023 Evaluation note* Encounter Date Diagnosis Assessment Notes [...] K58.0) Recommended Benefiber Follow up 2 months [facility] Other 02-20-2023 [facility] Gastroenterology Follow-Up Patient Visit CHIEF COMPLAINT Chief [...] date list that I (more content not included)...[facility]02-08-2023 [facility] Gastroenterology Follow-Up Patient Visit CHIEF COMPLAINT Chief [...] HPI GENITOURINARY: negative IN (more content not included)...[facility]01-24-2023 NotePatient: Rosa Alonzo Pre-sedation Evaluation: No [...] Only, Palpitations, Rash and Shortness of breath 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 [facility] Gastroenterology Follow-Up Patient Visit CHIEF [...] conjunctiva pink and normal (more content not included)...[facility]01-01-2023 History general Narrative - Reported* Type Description Date Medical History Esophageal reflux Medical History anxiety Surgical History wisdom teeth extract Surgical History FMT 07/2022 Hospitalization History pancreatitis [facility] Other 10-06-2022 Evaluation note* Encounter Date Diagnosis Assessment Notes Treatment Notes Treatment Clinical Notes Apr, Irritable bowel syndrome with diarrhea (ICD-10 - K58.0) PATIENT DOES HAVE 3 BOWEL MOVEMENTS A DAY SOMETIMES 1 Apr, RUQ pain (ICD-10 - R10.11) [facility] Other 08-24-2022 History of Present illness Narrative* Mckenzie Kincaid RN - 03/15/2022 3:30 PM EDT Patient verified full name and * Phani Presley MD - 03/15/2022 3:30 PM EDT GI CLINIC PROGRESS NOTE PATIENT NAME: Rosa Henao ATTENDING: Phani Presley MD : 2000 AGE: 21 y.o. 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 Symptoms persist, possible post infection IBS vs recurrent c. Diffinfection. Active marijuana user, smokes viper as well. DISPOSITION AND PLAN: 1. Will obtain c diff toxin Ag 2. Stool enteric panel 3. [place] of [place] 4. Imodium prn (after infection is ruled out) 5. Marijuana and viper abstinence counseling provided. Face to face interaction: 25 Time to complete visit: 60 Phani Presley MD Primer Inserting Machine Operator Division of Gastroenterology, Hepatology and Nutrition Department of Internal Medicine [facility]* Patient Instructions* Phani Presley MD - 03/15/2022 3:30 PM EDT C diff toxin Ag Enteric stool panel Dicyclomine Imodium prn if infection is ruled out documented in this [facility]03-08-2022 Evaluation note * Encounter Date Diagnosis Assessment Notes Treatment Notes Treatment Clinical Notes Sep, C. difficile diarrhea (ICD-10 - A04.72) START DIFICID DIRECTED REFERRAL TO [facility] FOR RECURRET C.DIFF [facility] Other 11-30-2021 NoteChief Complaint consultation for nausea [...] Use:., 06/21/2021 Family History Cancer: Father. Stroke: Mother.[facility]:Result Comment: Electronically Signed By: KALEB MACKEY, Ana Lan\Date and Time Signed: 06/21/21 20:44 [id number] Evaluation note* Encounter Date Diagnosis Assessment Notes [...] Patient care instructions given in writting by [facility] Care At Home document. [facility] Other 05-18-2021 NoteChief Complaint Consultation for Colonoscopy [...] Use:., 12/07/2020 Family History Cancer: Father. Stroke: Mother.[facility] HospitalComment on above:Result Comment: Electronically Signed By: KALEB MACKEY, Ana Lan\Date and Time Signed: 12/07/20 17:18 [id number] Miscellaneous Notes* Result Encounter Note - Rickie Naqvi DO - 12/02/2020 10:00 AM EDT CTA head and neck are both normal. No abnormalities noted. documented in this encounterParkview HealthEvaluation noteNo [facility] Other Evaluation note* Diagnosis Diarrhea, unspecified type- Primary [facility] Diagnosis Generalized abdominal pain- Primary Abdominal pain, generalized [facility]* Diagnosis Chronic pancreatitis, unspecified pancreatitis type (HCC)- Primary Generalized abdominal pain Abdominal pain, generalized Intestinal malabsorption, unspecified type [facility]* Diagnosis Chronic recurrent pancreatitis (HCC)- Primary Chronic pancreatitis [facility]* Diagnosis Chronic pancreatitis, unspecified pancreatitis type (HCC)- Primary Generalized abdominal pain Abdominal pain, generalized Irritable bowel syndrome with diarrhea Irritable bowel syndrome History of Clostridioides difficile colitis documented in this encounter [facility] note* Diagnosis Family history of ischemic heart disease and other diseases of the circulatory system History of acute pancreatitis Personal history of other diseases of digestive system Carotid artery aneurysm (HCC) Aneurysm of artery of neck documented in this encounter [facility] noteNo assessment information [facility] Work Phone: evaluation note* Diagnosis RUQ pain- Primary Abdominal pain, right upper quadrant History of pancreatitis Personal history of other diseases of digestive system Nausea Nausea alone Diarrhea, unspecified type History of Clostridium difficile infection Personal history of other infectious and parasitic disease [facility]* Diagnosis Generalized abdominal pain- Primary Abdominal pain, generalized RUQ pain Abdominal pain, right upper quadrant Chronic recurrent pancreatitis (HCC) Chronic pancreatitis Diarrhea, unspecified type [facility]* Diagnosis Chronic recurrent pancreatitis (HCC) Chronic pancreatitis documented in this encounter [facility] note* Diagnosis Palpitations- Primary Other supraventricular tachycardia (HCC) Cholecystitis Cholecystitis, unspecified documented in this encounter [facility] note* Diagnosis Pre-op examination- Primary Preoperative examination, unspecified Palpitations Organic anxiety syndrome Anxiety disorder in conditions classified elsewhere Cholecystitis Cholecystitis, unspecified documented in this encounter [facility] note* Diagnosis Onset Date Resolution Status Esophageal reflux acute LOCO (generalized anxiety disorder) acute Irritable bowel syndrome with diarrhea acute Vitamin D insufficiency [facility] Work Phone: evaluation note* Diagnosis S/P gastrointestinal surgery, follow-up exam- Primary Follow-up examination, following other surgery S/P laparoscopic cholecystectomy Other postprocedural status documented [facility]* Diagnosis Generalized abdominal pain- Primary Abdominal pain, generalized History of acute pancreatitis Personal history of other diseases of digestive system [facility]* Diagnosis Upper abdominal pain- Primary Abdominal pain, other specified site Dyspepsia and disorder of function of stomach Dyspepsia and other specified disorders of function of stomach Dyspepsia Dyspepsia and other specified disorders of function of stomach documented in this encounter [facility] note* Diagnosis Upper abdominal pain Abdominal pain, other specified site Dyspepsia and disorder of function of stomach Dyspepsia and other specified disorders of function of stomach Dyspepsia Dyspepsia and other specified disorders of function of stomach documented in this encounter [facility] note* Diagnosis Upper abdominal pain Abdominal pain, other specified site Dyspepsia and disorder of function of stomach Dyspepsia and other specified disorders of function of stomach documented in this encounter [facility] note* Diagnosis Epigastric pain- Primary Abdominal pain, epigastric documented in this encounter [facility] note* Diagnosis Onset Date Resolution Status LOCO (generalized anxiety disorder) [facility] Work Phone: Evaluation note* Diagnosis APPOINTMENT CANCELLED- Primary documented in this encounter [facility] note* Diagnosis Chronic recurrent pancreatitis (HCC) Chronic pancreatitis documented in this encounter [facility] note* Diagnosis Diarrhea, unspecified type- Primary documented in this encounter [facility] note* Diagnosis Right sided abdominal pain- Primary Abdominal pain, unspecified site Neuralgia and neuritis Neuralgia, neuritis, and radiculitis, unspecified Celiac artery compression syndrome (HCC) Celiac artery compression syndrome documented in this encounter [facility] note* Diagnosis Right sided abdominal pain- Primary Abdominal pain, unspecified site Celiac artery compression syndrome (HCC) Celiac artery compression syndrome Neuralgia and neuritis Neuralgia, neuritis, and radiculitis, unspecified Right sided abdominal pain Abdominal pain, unspecified site Celiac artery compression syndrome (HCC) Celiac artery compression syndrome Neuralgia and neuritis Neuralgia, neuritis, and radiculitis, unspecified documented in this encounter [facility] general Narrative - Reported* Type Description Date Medical History Esophageal reflux Medical History anxiety Surgical History wisdom teeth extract Hospitalization History pancreatitis [facility] Other History general Narrative - Reported* Type Description Date Medical History Esophageal reflux Medical History ANXIETY Medical History PANCREATITIS Medical History C DIFF Medical History COLON INFLAMMATION Medical History 2 FECAL TRANSPLANTS Medical History ENDOMETRIOSIS Surgical History wisdom teeth extract Surgical History FMT 07/2022 Surgical History LAPROSOCOPY FOR ENDOMETRIOSIS Hospitalization History pancreatitis [facility] Other Reason for referral (narrative)* Diagnostic Procedure Only (Routine) - Closed Specialty Diagnoses / Procedures Referred By Contac t Referred To Contact CT IMAGING Diagnoses Carotid artery aneurysm (HCC) History of acute pancreatitis Procedures CTA NECK W IVCON CTA NECK, W/WO C, W/3D Rickie Naqvi, [address] [place] [address] Ct Imaging [facility] Referral ID Status Reason Start Date Expiration Date V isits Requested Visits Authorized [id number] Closed Auto-Generate d Referral 11/18/2020 05/17/2021 1 1 * Diagnostic Procedure Only (Routine) - Closed Specialty Diagnoses / Procedures Referred By Contac t Referred To Contact CT IMAGING Diagnoses Family history of ischemic heart disease and other diseases of the circulatory system History of acute pancreatitis Procedures CTA HEAD WO/W IVCON CTA HEAD WWO C, W/3D Rickie Naqvi DO [address] [place] [address] Ct Imaging [place] [address] Referral ID Status Reason Start Date Expiration Date V isits Requested Visits Authorized [id number] Closed Auto-Generate d Referral 11/18/2020 12/18/2021 1 1 [facility] for referral (narrative)* Outpatient Procedure (Routine) - Closed Specialty Diagnoses / Procedures Referred By Contac t Referred To Contact [facility] Diagnoses Chronic recurrent pancreatitis (HCC) Procedures EGD - THERAPEUTIC, EUS, OR TUBE INTERVENTIONS EDG US EXAM SURGICAL ALTER STOM DUODENUM/[place] [address] [place] [address] [facility] [place] [address] [place] [address] Referral ID Status Reason Start Date Expiration Date V isits Requested Visits Authorized [id number] Closed Auto-Generate d Referral 07/13/2023 07/13/2024 1 1 [facility] for referral (narrative)* Outpatient Procedure (Routine) - Authorized Specialty Diagnoses / Procedures [facility]erred To Contact [facility] [place] Diagnoses Other supraventricular tachycardia (HCC) Palpitations Procedures ECHO ECHO TTHRC R-T 2D W/WOM-MODE COMPL SPEC&[place] [address] [place] [address] [address] Referral ID Status Reason Start Date Expiration Date Visits Requested Visits Authorized [id number] Authorized Auto-Generat ed Referral 10/22/2023 10/21/2024 1 1 [facility] for referral (narrative)* Diagnostic Procedure Only (Routine) - Authorized Specialty Diagnoses / Procedures [facility] Referred To Contact MOLECULAR & FUNCTIONAL IMAGING Diagnoses Upper abdominal pain Dyspepsia and disorder of function of stomach Dyspepsia Procedures NM GASTRIC EMPTYING SOLID GASTRIC EMPTYING STUDY Dara Butler Jr., DO [address] [place] [address] Molecular & Functional Imaging [address] [place] [address] Referral ID Status Reason Start Date Expiration Date Visits Requested Visits Authorized [id number] Authorized Auto-Generat ed Referral 12/28/2023 01/26/2025 1 1 * Diagnostic Procedure Only (Routine) - Pending Review Specialty Diagnoses / Procedures [facility] Referred To Contact XR IMAGING Diagnoses Upper abdominal pain Dyspepsia and disorder of function of stomach Procedures XR UPPER GI SINGLE CONTRAST RADIOLOGIC EXAM UPR GI TRC SINGLE CONTRAST STUDY Dara Butler Jr., DO [address] [place] [id number] [place] [address] Referral ID Status Reason Start Date Expiration Date Visits Requested Visits Authorized [id number] Pending Review Auto-Generat ed Referral 12/28/2023 01/26/2025 1 1 [facility] for referral (narrative)* Diagnostic Procedure Only (Routine) - Closed Specialty Diagnoses / Procedures Referred By Contac t Referred To Contact MOLECULAR & FUNCTIONAL IMAGING Diagnoses Upper abdominal pain Dyspepsia and disorder of function of stomach Dyspepsia Procedures NM GASTRIC EMPTYING SOLID GASTRIC EMPTYING STUDY Dara Butler Jr., DO [address] [place], [place] [id number] Molecular & Functional Imaging [address] [place] [address] Referral ID Status Reason Start Date Expiration Date V isits Requested Visits Authorized [id number] Closed Auto-Generate d Referral 12/28/2023 01/26/2025 1 1 T [facility] for referral (narrative)* Diagnostic Procedure Only (Routine) - Closed Specialty Diagnoses / Procedures Referred By Contac t Referred To Contact XR IMAGING Diagnoses Upper abdominal pain Dyspepsia and disorder of function of stomach Procedures XR UPPER GI SINGLE CONTRAST RADIOLOGIC EXAM UPR GI TRC SINGLE CONTRAST STUDY Dara Butler Jr., DO [address] [id number] [place] [address] Referral ID Status Reason Start Date Expiration Date V isits Requested Visits Authorized [id number] Closed Auto-Generate d Referral 02/11/2024 07/22/2024 1 1 T [facility] for visit Narrative* Diagnostic Procedure Only (Routine) - Closed Specialty Diagnoses / Procedures Referred By Contac t Referred To Contact CT IMAGING Diagnoses Carotid artery aneurysm (HCC) History of acute pancreatitis Procedures CTA NECK W IVCON CTA NECK, W/WO C, W/3D Rickie Naqvi, [id number] [facility] [place] [address] Referral ID Status Reason Start Date Expiration Date V isits Requested Visits Authorized [id number] Closed Auto-Generate d Referral 11/18/2020 05/17/2021 1 1 [facility] for visit Narrative* Outpatient Procedure (Routine) - Closed Specialty Diagnoses / Procedures Referred By Contac t Referred To Contact [facility] Diagnoses Chronic recurrent pancreatitis (HCC) Procedures EGD - THERAPEUTIC, EUS, OR TUBE INTERVENTIONS EDG US EXAM SURGICAL ALTER STOM DUODENUM/[place] [address] [address] [id number] [facility] [address] [place] [address] Referral ID Status Reason Start Date Expiration Date V isits Requested Visits Authorized [id number] Closed Auto-Generate d Referral 07/13/2023 07/13/2024 1 1 [facility] for visit Narrative* Diagnostic Procedure Only (Routine) - Closed Specialty Diagnoses / Procedures Referred By Contac t Referred To Contact MOLECULAR & FUNCTIONAL IMAGING Diagnoses Upper abdominal pain Dyspepsia and disorder of function of stomach Dyspepsia Procedures NM GASTRIC EMPTYING SOLID GASTRIC EMPTYING STUDY Dara Butler Jr., DO [address] [place] [address] Molecular & Functional Imaging [address] [place] [address] Referral ID Status Reason Start Date Expiration Date V isits Requested Visits Authorized [id number] Closed Auto-Generate d Referral 12/28/2023 01/26/2025 1 1 [facility] for visit Narrative* Diagnostic Procedure Only (Routine) - Closed Specialty Diagnoses / Procedures Referred By Contac t Referred To Contact XR IMAGING Diagnoses Upper abdominal pain Dyspepsia and disorder of function of stomach Procedures XR UPPER GI SINGLE CONTRAST RADIOLOGIC EXAM UPR GI TRC SINGLE CONTRAST STUDY Dara Butler Jr., DO [address] [place] [address] [place] [address] Referral ID Status Reason Start Date Expiration Date V isits Requested Visits Authorized [id number] Closed Auto-Generate d Referral 02/11/2024 07/22/2024 1 1 [facility] Summary Purpose Family History No Family History Records Found Relationship Condition Age at Onset Recorded Date/T jael father Hypertension Unknown Not Specified History of stroke Unknown Relationship Condition Age at Onset Recorded Date/T jael father Hypertension Unknown mother History of stroke Unknown Advance Directives No Advanced Directives Records Found Advance Directive Response Recorded Date/ Time Advance [...] CNTRST MTRL W/[place] [address] [place] [address] [place] [address] Referral ID Status Reason Start Date Expiration Date Visits Requested Visits Authorized [id number] Authorized Auto-Generat ed Referral 07/12/2024 1 1 Specialty Diagnoses / Procedures Referred By Contac t Referred To Contact MR IMAGING Diagnoses Chronic recurrent pancreatitis (HCC) Procedures MRI ABDOMEN WO/W IVCON MRI ABDOMEN W/O & W/CONTRAST MATERIAL Dara Butler Jr., DO [address] [place] [address] [place] [address] Referral ID Status Reason Start Date Expiration Date Visits Requested Visits Authorized [id number] Authorized Auto-Generat ed Referral 03/16/2023 04/14/2024 1 1 Specialty Diagnoses / Procedures Referred By Contac t Referred To Contact Gastroenterology Diagnoses Generalized abdominal pain Procedures CONSULT TO GASTROENTEROLOGY OFFICE/OUTPATIENT NEW HIGH MDM 60-74 MINUTES Meredith Gee MD [address] [place] [address] Referral ID Status Reason Start Date Expiration Date Visits Requested Visits Authorized [id number] Authorized PCP Requested Referral 12/23/2022 12/23/2023 1 1 Specialty Diagnoses / Procedures Referred By Chance warren Referred To Contact Diagnoses Generalized abdominal pain Procedures CONSULT TO MEDICAL GENETICS - GENERAL OFFICE/OUTPATIENT [facility] 60-74 MINUTES MEDICAL GENETICS COUNSELING EACH 30 MINUTES Meredith Gee MD [address] [place] [address] [facility] [address] [place] [address] Referral ID Status Reason Start Date Expiration Date Visits Requested Visits Authorized [id number] Pending Review PCP Requested Referral Auto-Generate d Referral 12/23/2022 12/23/2023 1 1 Reason Please schedule cons ult to evaluate and treat at [facility] (in [place]) for recurrent c.diff infection. (for possible fecal [...] and content) DATE CREATED AUTHOR 09/15/2021 Davies Mamina Shkola [facility] DATE CREATED AUTHOR AUTHOR'S ORGANIZ ATION 02/16/2022 [facility] DATE CREATED AUTHOR AUTHOR'S ORGANIZ ATION 03/18/2022 [facility] DATE CREATED AUTHOR AUTHOR'S ORGANIZ ATION 11/03/2022 [facility] DATE CREATED AUTHOR AUTHOR'S ORGANIZ ATION 12/04/2022 [facility] DATE CREATED AUTHOR AUTHOR'S ORGANIZ ATION 04/26/2023 [facility] DATE CREATED AUTHOR AUTHOR'S ORGANIZ ATION 12/10/2023 [facility] DATE CREATED AUTHOR AUTHOR'S ORGANIZ ATION 01/03/2024 [facility] DATE CREATED AUTHOR AUTHOR'S ORGANIZ ATION 02/08/2024 [facility] DATE CREATED AUTHOR AUTHOR'S ORGANIZ ATION 02/13/2024 [facility] DATE CREATED AUTHOR AUTHOR'S ORGANIZ ATION 06/24/2024 [facility] REASON FOR VISIT (unrecogniz ed section and content) Reason Comments New Patient Specialty Diagnoses / Procedures Referred By Contac t Referred To Contact Gastroenterology Diagnoses C. difficile diarrhea Jaya Parikh MD [address] [facility] [address] [place] [address] Referral ID Status Reason Start Date Expiration Date V isits Requested Visits Authorized [id number] Pending Review 10/07/2021 11/01/2022 1 1 Reason Comments Abdominal Pain Specialty Diagnoses / Procedures Referred By Contac t Referred To Contact Gastroenterology Diagnoses Generalized abdominal pain Procedures CONSULT TO GASTROENTEROLOGY OFFICE/OUTPATIENT [facility] MDM 60-74 MINUTES Meredith Gee MD [address] [place] [address] Referral ID Status Reason Start Date Expiration Date V isits Requested Visits Authorized [id number] Closed PCP Requested Referral 12/23/2022 12/23/2023 1 [...] tachycardia (HCC) Procedures CONSULT TO CARDIOLOGY OFFICE/OUTPATIENT [facility] M[place] 60 [place] [address] [place] [address] Referral ID Status Reason Start Date Expiration Date V isits Requested Visits Authorized [id number] Closed PCP Requested Referral 10/19/2023 10/18/2024 1 1 Reason Comments Cardiac Clearance Reason Comments Palpitations ED pt update Reason Comments Patient Question PVCs and Frequent ED visits. Reason Comments Anesthesia Consult Cholecystitis Reason Comments Pre-Op Exam Reason Comments Post Op Follow Up 11/21/23 lap maricarmen Reason Onset Date Comments Refill Request 12/13/2023 Reason Comments Radiology NM Reason Comments Consult Reason Comments Back Pain Specialty Diagnoses / Procedures Referred By Chance warren Referred To Contact MR IMAGING Diagnoses Chronic recurrent pancreatitis (HCC) Procedures MRI ABDOMEN WO/W IVCON MRI ABDOMEN W/O & W/CONTRAST MATERIAL Dara Butler Jr., DO [address] [facility] [place] [address] [place] [address] Referral ID Status Reason Start Date Expiration Date V isits Requested Visits Authorized [id number] Closed Auto-Generate d Referral 03/16/2023 04/14/2024 1 1 Reason Comments Appointment No need for OV with Dr. Menon Reason Comments Schedule Injection Reason Comments Appointment Source Comments (unrecognize d section and content) In the event this informatio n is protected by the Federal Confidentiality of Alcohol and Drug Abuse Patient Records regulations: The Federal rules restrict any use of the information to criminally investigate or prosecute any alcohol or drug abuse patient.[facility] the event this information is protected by the Federal Confidentiality of Alcohol and Drug Abuse Patient Records regulations: The Federal rules restrict any use of the information to criminally investigate or prosecute any alcohol or drug abuse patient.[facility] HealthIn the event this information is protected by the Federal Confidentiality of Alcohol and Drug Abuse Patient Records regulations: The Federal rules restrict any use of the information to criminally investigate or prosecute any alcohol or drug abuse patient.[facility] HealthIn the event this information is protected by the Federal Confidentiality of Alcohol and Drug Abuse Patient Records regulations: The Federal rules restrict any use of the information to criminally investigate or prosecute any alcohol or drug abuse patient.[facility] HealthIn the event this information is protected by the Federal Confidentiality of Alcohol and Drug Abuse Patient Records regulations: The Federal rules restrict any use of the information to criminally investigate or prosecute any alcohol or drug abuse patient.[facility] HealthIn the event this information is protected by the Federal Confidentiality of Alcohol and Drug Abuse Patient Records regulations: The Federal rules restrict any use of the information to criminally investigate or prosecute any alcohol or drug abuse patient.[facility] HealthIn the event this information is protected by the Federal Confidentiality of Alcohol and Drug Abuse Patient Records regulations: The Federal rules restrict any use of the information to criminally investigate or prosecute any alcohol or drug abuse patient.[facility] HealthIn the event this information is protected by the Federal Confidentiality of Alcohol and Drug Abuse Patient Records regulations: The Federal rules restrict any use of the information to criminally investigate or prosecute any alcohol or drug abuse patient.[facility] HealthIn the event this information is protected by the Federal Confidentiality of Alcohol and Drug Abuse Patient Records regulations: The Federal rules restrict any use of the information to criminally investigate or prosecute any alcohol or drug abuse patient.[facility] HealthIn the event this information is protected by the Federal Confidentiality of Alcohol and Drug Abuse Patient Records regulations: The Federal rules restrict any use of the information to criminally investigate or prosecute any alcohol or drug abuse patient.[facility] HealthIn the event this information is protected by the Federal Confidentiality of Alcohol and Drug Abuse Patient Records regulations: The Federal rules restrict any use of the information to criminally investigate or prosecute any alcohol or drug abuse patient.[facility] HealthIn the event this information is protected by the Federal Confidentiality of Alcohol and Drug Abuse Patient Records regulations: The Federal rules restrict any use of the information to criminally investigate or prosecute any alcohol or drug abuse patient.[facility] HealthIn the event this information is protected by the Federal Confidentiality of Alcohol and Drug Abuse Patient Records regulations: The Federal rules restrict any use of the information to criminally investigate or prosecute any alcohol or drug abuse patient.[facility] HealthIn the event this information is protected by the Federal Confidentiality of Alcohol and Drug Abuse Patient Records regulations: The Federal rules restrict any use of the information to criminally investigate or prosecute any alcohol or drug abuse patient.[facility] HealthIn the event this information is protected by the Federal Confidentiality of Alcohol and Drug Abuse Patient Records regulations: The Federal rules restrict any use of the information to criminally investigate or prosecute any alcohol or drug abuse patient.[facility] HealthIn the event this information is protected by the Federal Confidentiality of Alcohol and Drug Abuse Patient Records regulations: The Federal rules restrict any use of the information to criminally investigate or prosecute any alcohol or drug abuse patient.[facility] HealthIn the event this information is protected by the Federal Confidentiality of Alcohol and Drug Abuse Patient Records regulations: The Federal rules restrict any use of the information to criminally investigate or prosecute any alcohol or drug abuse patient.[facility] HealthIn the event this information is protected by the Federal Confidentiality of Alcohol and Drug Abuse Patient Records regulations: The Federal rules restrict any use of the information to criminally investigate or prosecute any alcohol or drug abuse patient.[facility] HealthIn the event this information is protected by the Federal Confidentiality of Alcohol and Drug Abuse Patient Records regulations: The Federal rules restrict any use of the information to criminally investigate or prosecute any alcohol or drug abuse patient.[facility] HealthIn the event this information is protected by the Federal Confidentiality of Alcohol and Drug Abuse Patient Records regulations: The Federal rules restrict any use of the information to criminally investigate or prosecute any alcohol or drug abuse patient.[facility] HealthIn the event this information is protected by the Federal Confidentiality of Alcohol and Drug Abuse Patient Records regulations: The Federal rules restrict any use of the information to criminally investigate or prosecute any alcohol or drug abuse patient.[facility] HealthIn the event this information is protected by the Federal Confidentiality of Alcohol and Drug Abuse Patient Records regulations: The Federal rules restrict any use of the information to criminally investigate or prosecute any alcohol or drug abuse patient.[facility] HealthIn the event this information is protected by the Federal Confidentiality of Alcohol and Drug Abuse Patient Records regulations: The Federal rules restrict any use of the information to criminally investigate or prosecute any alcohol or drug abuse patient.[facility] HealthIn the event this information is protected by the Federal Confidentiality of Alcohol and Drug Abuse Patient Records regulations: The Federal rules restrict any use of the information to criminally investigate or prosecute any alcohol or drug abuse patient.[facility] HealthIn the event this information is protected by the Federal Confidentiality of Alcohol and Drug Abuse Patient Records regulations: The Federal rules restrict any use of the information to criminally investigate or prosecute any alcohol or drug abuse patient.[facility] HealthIn the event this information is protected by the Federal Confidentiality of Alcohol and Drug Abuse Patient Records regulations: The Federal rules restrict any use of the information to criminally investigate or prosecute any alcohol or drug abuse patient.[facility] HealthIn the event this information is protected by the Federal Confidentiality of Alcohol and Drug Abuse Patient Records regulations: The Federal rules restrict any use of the information to criminally investigate or prosecute any alcohol or drug abuse patient.[facility] HealthIn the event this information is protected by the Federal Confidentiality of Alcohol and Drug Abuse Patient Records regulations: The Federal rules restrict any use of the information to criminally investigate or prosecute any alcohol or drug abuse patient.[facility] HealthIn the event this information is protected by the Federal Confidentiality of Alcohol and Drug Abuse Patient Records regulations: The Federal rules restrict any use of the information to criminally investigate or prosecute any alcohol or drug abuse patient.[facility] HealthIn the event this information is protected by the Federal Confidentiality of Alcohol and Drug Abuse Patient Records regulations: The Federal rules restrict any use of the information to criminally investigate or prosecute any alcohol or drug abuse patient.[facility] HealthIn the event this information is protected by the Federal Confidentiality of Alcohol and Drug Abuse Patient Records regulations: The Federal rules restrict any use of the information to criminally investigate or prosecute any alcohol or drug abuse patient.[facility] HealthIn the event this information is protected by the Federal Confidentiality of Alcohol and Drug Abuse Patient Records regulations: The Federal rules restrict any use of the information to criminally investigate or prosecute any alcohol or drug abuse patient.[facility] HealthIn the event this information is protected by the Federal Confidentiality of Alcohol and Drug Abuse Patient Records regulations: The Federal rules restrict any use of the information to criminally investigate or prosecute any alcohol or drug abuse patient.[facility] HealthIn the event this information is protected by the Federal Confidentiality of Alcohol and Drug Abuse Patient Records regulations: The Federal rules restrict any use of the information to criminally investigate or prosecute any alcohol or drug abuse patient.[facility] HealthIn the event this information is protected by the Federal Confidentiality of Alcohol and Drug Abuse Patient Records regulations: The Federal rules restrict any use of the information to criminally investigate or prosecute any alcohol or drug abuse patient.[facility] HealthIn the event this information is protected by the Federal Confidentiality of Alcohol and Drug Abuse Patient Records regulations: The Federal rules restrict any use of the information to criminally investigate or prosecute any alcohol or drug abuse patient.[facility] HealthIn the event this information is protected by the Federal Confidentiality of Alcohol and Drug Abuse Patient Records regulations: The Federal rules restrict any use of the information to criminally investigate or prosecute any alcohol or drug abuse patient.[facility] HealthIn the event this information is protected by the Federal Confidentiality of Alcohol and Drug Abuse Patient Records regulations: The Federal rules restrict any use of the information to criminally investigate or prosecute any alcohol or drug abuse patient.[facility] HealthIn the event this information is protected by the Federal Confidentiality of Alcohol and Drug Abuse Patient Records regulations: The Federal rules restrict any use of the information to criminally investigate or prosecute any alcohol or drug abuse patient.[facility] HealthIn the event this information is protected by the Federal Confidentiality of Alcohol and Drug Abuse Patient Records regulations: The Federal rules restrict any use of the information to criminally investigate or prosecute any alcohol or drug abuse patient.[facility] HealthIn the event this information is protected by the Federal Confidentiality of Alcohol and Drug Abuse Patient Records regulations: The Federal rules restrict any use of the information to criminally investigate or prosecute any alcohol or drug abuse patient.[facility] Care Teams (unrecognized sec tion and content) [...] November 29, 2023 End: November 29, 2023 Glueline Worker Relationship Specialty Start Date End Date Colby Augustin MD PCP - General Family Medicine 11/10/20 Glueline Worker Relationship Specialty Start Date End Date Colby Augustin MD PCP - General Family Medicine 11/10/20 Glueline Worker Relationship Specialty Start Date End Date Colby Augustin MD PCP - General Family Medicine 11/10/20 Glueline Worker Relationship Specialty Start Date End Date Colby Augustin MD PCP - General Family Medicine 11/10/20 Glueline Worker Relationship Specialty Start Date End Date Colby Augustin MD PCP - General Family Medicine 11/10/20 Glueline Worker Relationship Specialty Start Date End Date Colby Augustin MD PCP - General Family Medicine 11/10/20 Glueline Worker Relationship Specialty Start Date End Date Colby Augustin MD PCP - General Family Medicine 11/10/20 Glueline Worker Relationship Specialty Start Date End Date Colby Augustin MD PCP - General Family Medicine 11/10/20 Team Status: Inactive Member Role Status Dates Analia Holliday , DNP Primary Care Provider, Attending Provider Active Glueline Worker Relationship Specialty Start Date End Date Analia Holliday, STORE CUSTODIAN [address] [place] [address] PCP - General Family Medicine 06/06/23 Glueline Worker Relationship Specialty Start Date End Date Analia Holliday, STORE CUSTODIAN [address] [place] [address] PCP - General Family Medicine 06/06/23 Glueline Worker Relationship Specialty Start Date End Date Analia Holliday, STORE CUSTODIAN [address] [place] [address] PCP - General Family Medicine 06/06/23 Glueline Worker Relationship Specialty Start Date End Date Analia Holliday, STORE CUSTODIAN [address] [place] [address] PCP - General Family Medicine 06/06/23 Glueline Worker Relationship Specialty Start Date End Date Analia Holliday, STORE CUSTODIAN [address] [place] [phone] PCP - General Family Medicine 06/06/23 Glueline Worker Relationship Specialty Start Date End Date Analia Holliday, STORE CUSTODIAN [address] [place] [place] [phone] PCP - General Family Medicine 06/06/23 Glueline Worker Relationship Specialty Start Date End Date Analia Holliday, STORE CUSTODIAN [address] [place] [phone] PCP - General Family Medicine 06/06/23 Glueline Worker Relationship Specialty Start Date End Date Analia Holliday, STORE CUSTODIAN [address] [place] [phone] PCP - General Family Medicine 06/06/23 Glueline Worker Relationship Specialty Start Date End Date Analia Holliday, STORE CUSTODIAN [address] [place] [phone] PCP - General Family Medicine 06/06/23 Glueline Worker Relationship Specialty Start Date End Date Analia Holliday, STORE CUSTODIAN [address] [place] [address] PCP - General Family Medicine 06/06/23 Glueline Worker Relationship Specialty Start Date End Date Analia Holliday, STORE CUSTODIAN [address] [place] [phone] PCP - General Family Medicine 06/06/23 Glueline Worker Relationship Specialty Start Date End Date Analia Holliday, STORE CUSTODIAN [address] [place] [phone] PCP - General Family Medicine 06/06/23 Glueline Worker Relationship Specialty Start Date End Date Analia Holliday, STORE CUSTODIAN [address] [place] [phone] PCP - General Family Medicine 06/06/23 Team Status: Active Member Role Status Dates Analia Holliday DNP Primary Care Provider Active Start: December 27, 2023 Dara Butler DO Attending Provider Active Sta rt: December 27, 2023 Team Status: Inactive Member Role Status Dates Ana Bolton DO Attending Provider Active Start: January 01, 2024 End: January 01, 2024 Glueline Worker Relationship Specialty Start Date End Date Analia Holliday, STORE CUSTODIAN [address] [place] [phone] PCP - General Family Medicine 06/06/23 Team Status: Active Member Role Status Dates Analia Dennis APRN D[employer]ITAL [employer]ENSICS INVESTIGATOR-C Primary Care Provider Active Team Status: Inactive Member Role Status Dates Analia Dennis APRN DIGITAL FORENSICS INVESTIGATOR-C Primary Care Provider, Attending Provider Active Start: March 19, 2024 End: March 19, 2024 Glueline Worker Relationship Specialty Start Date End Date Analia Holliday CNP [address] [place] [address] PCP - General Family Medicine 06/06/23 Glueline Worker Relationship Specialty Start Date End Date Colby Augustin MD PCP - General Family Medicine 11/10/20 06/05/23 [employer] Worker Relationship Specialty Start Date End Date Analia Holliday CNP [address] [place] [phone] PCP - General Family Medicine 06/06/23 Glueline Worker Relationship Specialty Start Date End Date Analia Hollidya CNP [address] [place] [phone] PCP - General Family Medicine 06/06/23 Glueline Worker Relationship Specialty Start Date End Date Analia Holliday CNP [address] [place] [phone] PCP - General Family Medicine 06/06/23 Glueline Worker Relationship Specialty Start Date End Date Analia Holliday CNP [address] [place] [phone] PCP - General Family Medicine 06/06/23 Glueline Worker Relationship Specialty [place] [address] [place] [phone] PCP - General Family Medicine 06/11/24 Goals (unrecognized section and content) Goals may [...] BE BASED ON THE PRIMARY CLINICAL RECORDS. [facility]. provides no warranty or guarantee of the accuracy or completeness of information in this document.
--- NOTE | 2024-06-25 09:27 | US_ITS ---
The [address] [address] Patient Name: CHIOMA ALONZO MRN: [id number] date: 2000 Sex: F Assigned Patient Location: ER Current Patient Location: ER Accession/Order Number: [id number] Exam Date: 06/25/2024 10:00 Report Date: 06/25/2024 10:29 At the request of: CRISTI HASSAN Procedure: US OB transvaginal EXAMINATION: US OB transvaginal HISTORY: unconfirmed IUP, bleeding in COMPARISON: No relevant comparison available. FINDINGS: No intrauterine or ectopic is observed. The uterus is normal, retroverted The endometrium measures 14.4 mm The right ovary is normal measuring 3.2 x 2.3 x 1.6 cm. Left ovary is normal measuring 3.1 x 1.6 x 1.5 cm. The cervix is closed measuring 3.3 cm Small amount of free pelvic fluid US/US OB transvaginal IMPRESSION: No intrauterine or ectopic identified Electronically authenticated by: DARA HUMPHREY Date: 06/25/2024 10:29
--- NOTE | 2024-06-25 09:34 | ED_ITS ---
HPI - General Chief complaint: Vaginal Bleeding Stated complaint: vaginal bleed - preg Time Seen by Provider: 06/25/24 09:07 Source: patient Mode of arrival: walk-in Limitations: no limitations History of Present Illness HPI Narrative: Patient is a very pleasant 18-year-old female who presents to the emergency department secondary to concerns of vaginal bleeding. The patient is . She just found out on June 19 see test. She does not know how far along she is and indicates that her periods are somewhat irregular. Call her last normal menstrual period. The patient is a G2, P0. She miscarried about a year and a half ago at approximately 6 weeks. That is why the patient is concerned. Patient states that this morning she went to the bathroom and when she wiped she had dark brown blood present. Related Data Home Medications ?Medication ?Instructions ?Recorded ?Confirmed hyoscyamine sulfate 0.375 mg 0.375 mg PO BID 12/27/23 03/24/24 tablet,extended release,12 hr escitalopram oxalate 5 mg tablet 5 mg PO DAILY 03/24/24 03/24/24 (Lexapro) ondansetron HCl 4 mg tablet 4 mg PO DAILY 03/24/24 03/24/24 Previous Rx's ?Medication ?Instructions ?Recorded dicyclomine 10 mg capsule 10 mg PO QID PRN abdominal pain 03/24/24 #12 caps ondansetron 4 mg disintegrating 4 mg PO Q8H PRN nausea and 03/24/24 tablet vomiting 4 days #16 tabs Allergies Allergy/AdvReac Type Severity Reaction Status Date / Time metronidazole (From Flagyl) Allergy Hives Verified 03/24/24 20:15 Review of Systems ROS Narrative 10 Systems were reviewed, and unless not ed in the HPI, all other systems are reviewed, unremarkable, or noncontributory. [facility] Medical History (Updated 06/25/24 @ 11:05 by Shadia Kiran DO) History of IBS ?Z87.19 - Personal history of other diseases of the digestive system (ICD-10) History of endometriosis ?Z87.42 - Personal history of other diseases of the female genital tract (ICD-10) History of Clostridioides difficile colitis ?Z86.19 - Personal history of other infectious and parasitic diseases (ICD- 10) Epigastric pain ?R10.13 - Epigastric pain (ICD-10) Nausea ?R11.0 - Nausea (ICD-10) Acute sinusitis due to respiratory syncytial virus (RSV) ?J01.90 - Acute sinusitis, unspecified (ICD-10) ?B97.4 - Respiratory syncytial virus as the cause of diseases classified elsewhere (ICD-10) Shoulder pain ?M25.519 - Pain in unspecified shoulder (ICD-10) Syncope ?R55 - Syncope and collapse (ICD-10) Paresthesia and pain of extremity ?R20.2 - Paresthesia of skin (ICD-10) ?M79.609 - Pain in unspecified limb (ICD-10) Paresthesia ?R20.2 - Paresthesia of skin (ICD-10) Back pain ?M54.9 - Dorsalgia, unspecified (ICD-10) Insomnia ?G47.00 - Insomnia, unspecified (ICD-10) Depression ?F32.A - Depression, unspecified (ICD-10) Anxiety ?F41.9 - Anxiety disorder, unspecified (ICD-10) COVID-19 ?U07.1 - COVID-19 (ICD-10) Pleurisy ?R09.1 - Pleurisy (ICD-10) IBS (irritable bowel syndrome) ?K58.9 - Irritable bowel syndrome without diarrhea (ICD-10) GERD (gastroesophageal reflux disease) ?K21.9 - Gastro-esophageal reflux disease without esophagitis (ICD-10) Palpitations ?R00.2 - Palpitations (ICD-10) Low vitamin D level ?R79.89 - Other specified abnormal findings of blood chemistry (ICD-10) Fatigue ?R53.83 - Other fatigue (ICD-10) Ovarian cyst ?N83.209 - Unspecified ovarian cyst, unspecified side (ICD-10) Pancreatitis ?K85.90 - Acute pancreatitis without necrosis or infection, unspecified (ICD- 10) Abdominal pain ?R10.9 - Unspecified abdominal pain (ICD-10) Altered bowel function ?R19.8 - Other specified symptoms and signs involving the digestive system and abdomen (ICD-10) Diarrhea ?R19.7 - Diarrhea, unspecified (ICD-10) Abnormal uterine bleeding ?N93.9 - Abnormal uterine and vaginal bleeding, unspecified (ICD-10) Pelvic pain ?R10.2 - Pelvic and perineal pain (ICD-10) Fallopian tube disorder ?N83.9 - Noninflammatory disorder of ovary, fallopian tube and broad ligament, unspecified (ICD-10) Muscle weakness ?M62.81 - Muscle weakness (generalized) (ICD-10) Dehydration ?E86.0 - Dehydration (ICD-10) Clostridium difficile infection ?A49.8 - Other bacterial infections of unspecified site (ICD-10) 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 - Personal history of other medical treatment (ICD-10) Surgical History (Updated 01/08/23 @ 10:26 by Lynette Darden NP) History of removal of skin mole ?Z98.890 - Other specified postprocedural states (ICD-10) ?Z87.2 - Personal history of diseases of the skin and subcutaneous tissue (ICD-10) History of wisdom tooth extraction ?K08.409 - Partial loss of teeth, unspecified cause, unspecified class (ICD- 10) History of esophagogastroduodenoscopy (EGD) ?Z98.890 - Other specified postprocedural states (ICD-10) History of colonoscopy ?Z98.890 - Other specified postprocedural states (ICD-10) Family History (Updated 01/08/23 @ 10:26 by Lynette Darden NP) Other Family history of hypertension Family history of prostate cancer Family history of stroke Social History Within the past year, how often did you have a drink containing alcohol: never Score interpretation: A score less than 3 is consistent with normal alcohol consumption. 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 Cardiovascular: [Regular rate and rhythm, no murmur.] Respiratory: [Lungs are clear to auscultation, respirations are non-labored, breath sounds are equal.] Chest wall: [No tenderness, no deformity.] Gastrointestinal: [Soft, nontender, non distended, normal bowel sounds.] MSK: 5 out of 5 muscle strength x 4 extremities no calf pain or edema Lymphatics: [No lymphadenopathy.] Psychiatric: [Cooperative, appropriate mood & affect.] Neurological: [Alert and oriented to person, place, time, and situation, no focal neurological deficit observed.] Constitutional Vital Signs, click to edit/add: Last Vital Signs Temp 98.3 F 06/25/24 09:07 Pulse 78 06/25/24 09:07 Resp 18 06/25/24 09:07 BP 120/83 06/25/24 09:07 Pulse Ox 100 06/25/24 09:07 Documenting provider has reviewed patient's vital signs: yes Course Vital Signs Vital signs: Vital Signs Temperature 98.3 F 06/25/24 09:07 Pulse Rate 78 06/25/24 09:07 Respiratory Rate 18 06/25/24 09:07 Blood Pressure 120/83 06/25/24 09:07 Pulse Oximetry 100 06/25/24 09:07 Temperature 98.3 F 06/25/24 09:07 Pulse Rate 78 06/25/24 09:07 Respiratory Rate 18 06/25/24 09:07 Blood Pressure 120/83 06/25/24 09:07 Pulse Oximetry 100 06/25/24 09:07 MDM - OB/Uterine Contractions MDM Narrative Medical decision making narrative: Is a very nice 23-year-old female presents the emergency department secondary to vaginal bleeding on a newly found . Patient presented with mild right lower quadrant pain. She does have a history of a cholecystectomy and an appendectomy. Patient is a . Presented to the emergency department for evaluation of the vaginal bleeding. She presented by herself. She has a history of a previous miscarriage about a year and a half ago. Her [employer] DEVEL[employer] is Dr. Burroughs. Hide we discussed the differential diagnosis and the present workup. CBC reveals no evidence of anemia or leukocytosis. [facility] metabolic panel reveals no electrolyte, kidney, or liver dysfunction. Patient's quantitative hCG was 32 which is not consistent with a that would be seen on an ultrasound. But the patient has not had a period in at least a couple weeks so it is inconsistent. She should get a repeat quantitative hCG in 72 hours. ReSound does not support an intrauterine in order to support an ectopic . The patient was informed that if she gets pain that is intolerable or change that she needs to return for repeat examination in the event that it could be an ectopic . Not necessitate the need for RhoGAM as she has Rh factor positive. Patient will follow-up with her [employer]EV[employer] DEVELOPER for further management and expectations for future attempts. Differential Diagnosis Differential diagnosis: Likely other (Ectopic , miscarriage, subchorionic hemorrhage, first trimester , implantation bleeding) Medical Records Attestation: I reviewed the patient's medical records. Lab Data Attestation: I reviewed the patient's lab results. Labs: Lab Results 06/25/24 06/25/24 Range/Units 09:12 09:40 WBC 7.8 (4.0-11.0) 10^3/uL RBC 4.20 (4.20-5.40) 10^6/uL Hgb 13.5 (12.0-16.0) g/dL Hct 39.1 (36.0-48.0) % MCV 93.1 (81.0-99.0) fL MCH 32.1 (26.7-34.0) pg MCHC 34.5 (29.9-35.2) g/dL RDW 11.5 (11.0-15.0) % Plt Count 199 (150-450) 10^3/uL MPV 10.9 (9.5-13.5) fL Neut % (Auto) 71.9 (43.0-75.0) % Lymph % (Auto) 17.5 L (20.5-60.0) % Iron % (Auto) 7.0 (1.7-12.0) % Eos % (Auto) 2.8 (0.9-7.0) % Baso % (Auto) 0.5 (0.2-2.0) % Neut # (Auto) 5.6 (1.4-6.5) 10^3/uL Lymph # (Auto) 1.4 (1.2-3.8) 10^3/uL Iron # (Auto) 0.6 (0.3-0.8) 10^3/uL Eos # (Auto) 0.2 (0.0-0.7) 10^3/uL Baso # (Auto) 0.0 (0.0-0.1) 10^3/uL Abs Immat Gran (auto) 0.02 (0.00-0.03) 10^3/uL Imm/Tot Granulo (auto) 0.3 (0.0-0.5) % Sodium 139 (136-145) mmol/L Potassium 4.1 (3.5-5.1) mmol/L Chloride 105 (98-107) mmol/L Carbon Dioxide 24.5 (21.0-32.0) mmol/L Anion Gap 13.6 BUN 12.0 (7.0-18.0) mg/dL Creatinine 0.73 (0.55-1.02) mg/dL Est GFR ( Amer) >60 (>=60 mL/min/1.73m^2) Est GFR (Non-Af Amer) >60 (>=60 mL/min/1.73m^2) BUN/Creatinine Ratio 16.4 Glucose 103 (74-106) mg/dL Calcium 9.3 (8.5-10.1) mg/dL Total Bilirubin 1.1 H (0.2-1.0) mg/dL AST 10 L (15-37) U/L ALT 14 (14-59) U/L Alkaline Phosphatase 50 (46-116) U/L Total Protein 7.3 (6.4-8.2) g/dL Albumin 4.1 (3.4-5.0) g/dL Globulin 3.2 g/dL Albumin/Globulin Ratio 1.3 HCG, Quant 32 mIU/mL Urine Color Yellow (YELLOW) Urine Clarity Clear (CLEAR) Urine pH 5.5 (5.0-9.0) Ur Specific [place] >=1.030 A (1.005-1.025) Urine Protein 30 A (NEG/TRACE) mg/dL Urine Glucose (UA) Negative (NEGATIVE) mg/dL Urine Ketones 15 A (NEGATIVE) mg/dL Urine Occult Blood Negative (NEGATIVE) Urine Nitrite Negative (NEGATIVE) Urine Bilirubin Negative (NEGATIVE) Urine Urobilinogen 0.2 (0.2-1.0) EU/dL Ur Leukocyte Esterase Negative (NEGATIVE) Urine RBC None seen (0-2) #/HPF Urine WBC None seen (NONE SEEN) #/HPF Ur Squamous Epith Cells Moderate A (NONE/RARE) #/LPF Urine Bacteria Trace A (NONE SEEN) #/HPF Urine Mucus Moderate A (NONE SEEN) Ur Culture Indicated? No Blood Type A Positive Imaging Data US - abdomen: Radiologist's impression: ITS Impressions Transvaginal US 06/25/24 09:27 IMPRESSION: No intrauterine or ectopic identified Electronically authenticated by: DARA HUMPHREY Date: 06/25/2024 10:29 Discharge Plan Discharge Chief Complaint: Vaginal Bleeding Clinical Impression: Missed Patient Disposition: Home, Self-Care Time of Disposition Decision: 11:02 Condition: Good Prescriptions / Home Meds: No Action hyoscyamine sulfate 0.375 mg tablet extended release 12 hr 0.375 mg PO BID escitalopram oxalate [Lexapro] 5 mg tablet 5 mg PO DAILY ondansetron HCl 4 mg tablet 4 mg PO DAILY ondansetron 4 mg tablet,disintegrating 4 mg PO Q8H PRN (Reason: nausea and vomiting) 4 Days Qty: 16 0RF dicyclomine 10 mg capsule 10 mg PO QID PRN (Reason: abdominal pain) Qty: 12 0RF Print Language: Micronesian Instructions: Miscarriage (ED) Additional Instructions: Return if your symptoms get worse or change. Given the duration of time that it has been since her last period would be unlikely that you had an ectopic at this point. But, it is something that we should be aware of. Please make sure you get a repeat quantitative hCG. I have given you a prescription for you. Referrals: FÁTIMA KENDALL [Primary Care Provider] - 1 week
[2024-06-25 10:05] LABS: Basophils Percent Auto 0.5 % (0.2-2.0); Eosinophils Absolute Auto 0.2 10^3/uL (0.0-0.7); Eosinophils Percent Auto 2.8 % (0.9-7.0); Hematocrit 39.1 % (36.0-48.0); Hemoglobin 13.5 g/dL (12.0-16.0); Immature Granulocytes Abs Auto 0.02 10^3/uL (0.00-0.03); Immature Granulocytes Pct Auto 0.3 % (0.0-0.5); Lymphocytes Absolute Auto 1.4 10^3/uL (1.2-3.8); Lymphocytes Percent Auto 17.5 % (20.5-60.0); Mean Corpuscular HGB Conc 34.5 g/dL (29.9-35.2); Mean Corpuscular Hemoglobin 32.1 pg (26.7-34.0); Mean Corpuscular Volume 93.1 fL (81.0-99.0); Mean Platelet Volume 10.9 fL (9.5-13.5); Monocytes Absolute Auto 0.6 10^3/uL (0.3-0.8); Neutrophils Absolute Auto 5.6 10^3/uL (1.4-6.5); Neutrophils Percent Auto 71.9 % (43.0-75.0); Platelet Count 199 10^3/uL (150-450); Red Cell Distribution Width 11.5 % (11.0-15.0); White Blood Count 7.8 10^3/uL (4.0-11.0)
[2024-06-25 10:07] LABS: Bilirubin Urine NEGATIVE (NEGATIVE); Blood Urine NEGATIVE (NEGATIVE); Clarity Urine CLEAR (CLEAR); Color Urine YELLOW (YELLOW); Glucose Urine UA NEGATIVE (NEGATIVE); Ketones Urine 15 mg/dL (NEGATIVE); Leukocyte Esterase Urine NEGATIVE (NEGATIVE); Nitrite Urine NEGATIVE (NEGATIVE); Protein Urine 30 mg/dL (NEG/TRACE); Specific Gravity Urine >=1.030 (1.005-1.025); Urobilinogen Urine 0.2 EU/dL (0.2-1.0); pH Urine 5.5 (5.0-9.0)
[2024-06-25 10:10] LABS: Urine Microscopic Indicated YES
[2024-06-25 10:16] LABS: Alanine Aminotransferase 14 U/L (14-59); Albumin Globulin Ratio 1.3; Albumin Level 4.1 g/dL (3.4-5.0); Alkaline Phosphatase 50 U/L (46-116); Anion Gap 13.6; Aspartate Amino Transferase 10 U/L (15-37); BUN Creatinine Ratio 16.4; Bilirubin Total 1.1 mg/dL (0.2-1.0); Calcium 9.3 mg/dL (8.5-10.1); Carbon Dioxide 24.5 mmol/L (21.0-32.0); Chloride 105 mmol/L (98-107); Estimated GFR (African America >60 (>=60 mL/min/1.73m^2); Estimated GFR (Non-African Ame >60 (>=60 mL/min/1.73m^2); Globulin 3.2 g/dL; Glucose 103 mg/dL (74-106); Potassium 4.1 mmol/L (3.5-5.1); Sodium 139 mmol/L (136-145); Total Protein 7.3 g/dL (6.4-8.2)
[2024-06-25 10:21] LABS: HCG Quantitative 32 mIU/mL
[2024-06-25 10:24] LABS: Bacteria Urine TRACE #/HPF (NONE SEEN); Mucus Urine MODERATE (NONE SEEN); RBC Urine NONE SEEN #/HPF (0-2); Squamous Epithelial Cell Urine MODERATE #/LPF (NONE/RARE); WBC Urine NONE SEEN #/HPF (NONE SEEN)
[2024-06-25 10:25] LABS: Urine Culture Indicated NO
[2024-06-25 11:14] VITALS: BP 111/73; PULSE 80; TEMP 37.2; O2SAT 99
== END 2024-06-25 11:16 | disposition home or self-care (01) ==
PROVIDERS: Emergency Provider Emergency Medicine; PCP Nurse Practitioner Family
DX: O02.1 Missed abortion (principal)
CPT/HCPCS: 36415; 76817; 80053; 81001; 84702; 85025; 86900; 86901; 99284

== ENCOUNTER 2024-06-30 14:13 | Outpatient (OUT) | payer BC, SELFPAY ==
[2024-06-30 15:25] LABS: HCG Quantitative 8 mIU/mL
== END 2024-06-30 14:14 | disposition home or self-care (01) ==
LOC: LAB 14:15
PROVIDERS: PCP Nurse Practitioner Family
DX: O03.9 Complete or unspecified spontaneous abortion without complication (principal)
CPT/HCPCS: 36415; 84702

== ENCOUNTER 2024-07-08 15:01 | Outpatient (RCR) | payer BC, SELFPAY ==
[2024-07-08 15:52] LABS: HCG Quantitative <1 mIU/mL
== END 2024-07-22 08:41 | disposition home or self-care (01) ==
LOC: LAB 15:01
PROVIDERS: PCP Nurse Practitioner Family; Visit Provider Obstetrics & Gynecology
DX: O03.9 Complete or unspecified spontaneous abortion without complication (principal)
CPT/HCPCS: 36415; 84702

== ENCOUNTER 2024-07-09 08:36 | Outpatient (REF) | payer BC, SELFPAY ==
[2024-07-09 13:52] LABS: C. Difficile PCR POSITIVE
== END 2024-07-09 08:37 | disposition home or self-care (01) ==
LOC: LAB 08:36
PROVIDERS: PCP Nurse Practitioner Family; Visit Provider Nurse Practitioner Family
DX: R19.7 Diarrhea, unspecified (principal)
CPT/HCPCS: 36415; 87493

== ENCOUNTER 2024-07-11 09:15 | Emergency (ER) | payer BC, SELFPAY ==
[2024-07-11 09:20] VITALS: BP 112/80; PULSE 92; TEMP 36.8; O2SAT 100; BMI 25.7
--- OUTSIDE RECORDS SUMMARY | 2024-07-11 09:25 | XMS_ITS | CCD ---
Author Organization [facility] Care Team Providers Care Flame Channeler Name Role Phone Arlene Negro Unavailable Jaya Parikh Unavailable SELF, REFERRED Primary Care Unavailable SELF, REFERRED Referring Unavailable ZENON HUGGINS Admitting Unavailable ZENON HUGGINS Attending Unavailable Unavailable Primary Care Provider UnavailPHANI De Paz Attending Unavailable JAYA PARIKH Referring Unavailable CELY NELSON Attending Unavailable KELECHI AGUIARALLANA LILIA Admitting Unavailable TERE AGUIAR Attending Unavailable BETY REYGOUMOU Referring Unavailable KOBTERE DOMINGO Attending Unavailable KOBEILEXIS ABDALLAH Referring Unavailable ROSENDAMEIR REYGHAN Attending Unavailable MIO ALBERTYGOUMOU Attending Unavailable Silvano Reyez Unavailable HEMEYER ., [...] MATA Primary Care Unavailable HEMEYER ., DR AMTA Consulting Unavailable HEMEYER ., DR MATA Admitting [...] Admitting Unavailable MISC, DR HELLER Attending Unavailable DITTY, JAYA Primary Care Unavailable MISC, DR HELLER Consulting Unavailable DARA CEDILLO Unavailable MISC, DR HELLER Admitting Unavailable MISC, DR HELLER Attending Unavailable HEMEYER ., EDLETICIA Primary Care Unavailable MISC, DR HELLER Consulting Unavailable HEMEYER ., DR MATA Admitting Unavailable HEMEYER ., DR MATA Attending Unavailable HEMEYER ., EDLETICIA Primary Care Unavailable HEMEYER ., DR MATA Consulting Unavailable HOY, COLBY Admitting Unavailable HOY COLBY Attending Unavailable HOY, COLBY Primary Care [...] Griffin Consulting Unavailable HEMEYER ., DR MATA Admitting Unavailable HEMEYER ., DR MATA Attending Unavailable HEMEYER ., DR MATA Primary Care Unavailable HEMEYER ., DR MATA Consulting Unavailable MISC, DR HELLER Admitting Unavailable MISC, DR HELLER Attending Unavailable HEMEYER ., DR MATA Primary Care Unavailable MISC, DR HELLER Consulting Unavailable DARA SAVAGE Consulting Unavailable MISC, DR HELLER Admitting Unavailable MISC, DR HELLER Attending Unavailable DITTY, JAYA Primary Care Unavailable LARRYY, JAYA Consulting Unavailable HEMEYER ., DR MATA Primary Care Unavailable DIAB ., JAMIL Admitting Unavailable DIAB ., JAMIL Attending Unavailable DIAB ., JAMIL Consulting Unavailable MISC, DR HELLER Admitting Unavailable MISC, DR HELLER Attending Unavailable HEMEYER ., DR MATA Primary Care Unavailable SPANAWAY, DR DARA Ledezma Consulting Unavailable MISC, DR [...] Unavailable HEMEYER ., DR MATA Consulting Unavailable HEIKE ., DR HUFF Admitting Unavailable HEIKE ., DR HUFF Attending Unavailable HEMEYER ., EDLETICIA Primary Care Unavailable HEIKE ., DR HUFF Consulting Unavailable HEMEYER ., DR MATA Admteddy Unavailable HEMEYER ., DR MATA Attending Unavailable HEMEYER ., EDLETICIA Primary Care Unavailable MISC, DR HELLER Admitting Unavailable MISC, DR HELLER Attending Unavailable HEMEYER ., EDLETICIA Primary Care Unavailable MISC, DR HELLER Consulting Unavailable COLBY AUGUSTIN Admitting Unavailable COLBY AUGUSTIN Attending Unavailable COLBY AUGUSTIN Primary Care Unavailable COLBY AUGUSTIN Consulting Unavailable JAYA PARIKH Primary Care Unavailable TUCKER, DR MARIANNE Garcia Admitting Unavailabl e REINLUPE, DR MARIANNE Garcia Attending Unavailabl e REINLUPE, DR MARIANNE Garcia Consulting Unavailabl e MISC, DR HELLER Admitting Unavailable MISC, DR HELLER Attending Unavailable COLBY AUGUSTIN Primary Care Unavailable MISC, DR HELLER Consulting Unavailable Colby Augustin MD Primary Care Provider [phone] Jose Luis Hernandez Attending Unavailab le Jose Luis Hernandez Admitting Unavailab le NON STAFF Primary Care Unavailable Provider, Ordering Unavailable Analia Holliday Unavailable Miya, DAVID Helms Primary Care Provider Miya, DAVID Helms Attending Provider Kaple DIOR Analia M Primary Care Provider Miya SITE PLANNER, Analia M Primary Care Provider SEEMA DAVIS Referring Unavailable MIYA ANALIA M Primary Care Unavailable VIKTORIA CAUSEY Referring Unavailable MIYA ANALIA M Primary Care Unavailable DO Ana Bolton Attending Provider Ana Bolton Admitting Unavailable Ana Bolton Attending Unavailable Analia Holliday Admitting Unavailable Miya Analia Primary Care Unavailable Analia Holliday Attending Unavailable Jose Luis Hernandez Attending Unavailab le NON STAFF Primary Care Unavailable Jose Luis Hernandez Admitting Unavailab le MIYA ANALIA M Primary Care Unavailable ISABELLE MENON Referring Unavailable ELIF HESS Attending Unavailable DARA BUTLER Referring Unavailable MYRAMEIR ANALIA M Primary Care Unavailable MIYA ANALIA M Primary Care Unavailable SEEMA DAVIS Admitting Unavailable SEEMA DAVIS Attending Unavailable DARA BUTLER Referring Unavailable MIYA ANALIA M Primary Care Unavailable DARA BUTLER Referring Unavailable COLBY AUGUSTIN Primary Care Unavailable DARA BUTLER Referring Unavailable COLBY AUGUSTIN Primary Care Unavailable Colby Augustin MD Primary Care Provider [phone] Keshia Restrepo MD Primary Care Provider Kyree Noguera MD Primary Care Provider Kyree Noguera MD Unavailable [phone] JEREMIAH BURROUGHS Attending Unavailable ELIF RICH Attending Unavailable JEREMIAH BURROUGHS Attending Unavailable Unavailable Primary Care Provider Unavailabl e MIYA ANALIA M Primary Care Unavailable DARA BUTLER JR Referring Unavailable MYRAMEIR, ANALIA M Primary Care Unavailable Bola Braden Attending Unavailable MIYA, ANALIA M Primary Care Unavailable ZENON PRETTY Attending Unavailable MIYA, ANALIA M Primary Care Unavailable ZENON PRETTY Attending Unavailable ANALIA HOLLIDAY Primary Care Unavailable ANALIA HOLLIDAY Primary Care Unavailable DARA BUTLER JR Attending Unavailable SEDRICK RUSHING Attending Unavailable ANALIA HOLLIDAY Primary Care Unavailable SEEMA DAVIS Referring Unavailable MIYA ANALIA M Primary Care Unavailable SEEMA DAVIS Referring Unavailable SEEMA DAVIS Attending Unavailable SEDRICK RUSHING Referring Unavailable ANALIA HOLLIDAY Primary Care Unavailable ANALIA HOLLIDAY Primary Care Unavailable ANALIA HOLLIDAY Referring Unavailable ARIELLA MCCOY Attending Unavailable Allergies Allergy Classification Reported Allergen(s) Allergy Type Date of Onset Reaction(s) Facility Nitroimidazoles (antibiotic) (1 source) metroNIDAZOLE Drug Allergy 1 Mental Status Change, Diarrhea, GI Upset, Hives, Other: See Comments, Rash, Shortness of Breath, Unknown, Vomiting [facility] (20 sources) metroNIDAZOLE; Translations: [METRONIDAZOLE] Drug Allergy 1 Mental Status Change, Diarrhea, GI Upset, Hives, Other: See Comments, Rash, Shortness of Breath, Unknown, Vomiting [facility] Repository (1 source) metroNIDAZOLE Drug Allergy [address] [facility] Repository (8 sources) Vancomycin Drug Allergy Unknown [employer] Other (1 source) Vancomycin Drug Allergy 4 [facility] Repository Medications Current Medications Medication Drug Class(es) Dates Sig (Normalized) Sig (Original) dicyclomine hydrochloride 20 mg oral tablet (20 sources) Anticholinergic Start: 03-14-2024 End: 06-12-2024 take 1 tablet by mouth twice daily dicyclomine (BENTYL) 20 mg tablet Take 1 tablet by mouth two times a day. 60 tablet 2 03/14/2024 06/12/2024 Active Start: 11-29-2023 take 1 capsule by [facility] every twenty-four hours as needed dicyclomine (Bentyl) 10 MG capsule Take 10 mg by mouth Daily as needed 11/29/2023 Active Start: 11-29-2023 take 1 capsule by mo [facility] three times daily as needed Dicyclomine Active [...] 12:00am March 19, 2024 1:45pm Start: 11-29-2023 take 0.5 tablet by m outh once daily escitalopram (Lexapro) 10 mg tablet Take 0.5 tablets (5 mg) by mouth once daily. 11/29/2023 Active Start: 11-29-2023 End: 01-16-2024 take 1 tablet [...] ( ) take 5 mg by mouth i n the morning escitalopram (Lexapro) 10 MG tablet Take 5 mg by mouth in the morning. Active take 1 tablet by joel th [...] TODAY Active gabapentin 100 mg oral capsule (5 sources) Anti-epileptic Agent Start: 04-30-2024 End: 04-23-2025 [...] 5 04/30/2024 04/23/2025 Active ondansetron 4 mg disintegrating oral tablet (20 sources) Serotonin-3 Receptor Antagonist Start: 12-28-2023 take 1 tablet by mouth every six hours as needed ondansetron ODT (Zofran-ODT) 4 mg disintegrating tablet Take 1 tablet (4 mg) by mouth every 6 hours if needed. 12/28/2023 Active Start: 09-01-2022 ondansetron (Z OFRAN) 4 mg tablet Take 4 mg by [...] by joel th daily at bedtime. amylase [id number] unt / lipase [id number] unt / protease [id number] unt delayed release oral capsule (16 sources) Start: 06-06-2023 End: 10-22-2023 take 2 capsules by mouth twice daily at mealtime prfgqv-qiabokxh-eatbc se (CREON) 24,000-76,000 -120,000 unit delayed release capsule Take 2 capsules by mouth two times a day with meals. 120 capsule 0 06/06/2023 10/22/2023 Discontinued Start: 02-06-2023 End: 05-22-2023 take 1 capsule by mouth three times daily at mealtime mfqocn-cicgmyuc-mvqatcp (ZENPEP) 40,000-126,000- 168,000 unit delayed release capsule Indications: Generalized abdominal pain , Chronic pancreatitis, unspecified pancreatitis type (HCC) , Intestinal malabsorption, unspecified type Take 1 capsule by mouth three times daily with meals. 90 capsule 2 02/06/2023 05/22/2023 Discontinued Comment on above: Take 1 capsule by mo [facility] three times daily with meals. Take 2 capsules by [facility] two times a day with meals. chlordiazePOXIDE [...] Comment on above: Take 1 capsule by [facility] three times daily with meals. TAKE 1 CAPSULE BY [facility] THREE TIMES DAILY WITH MEALS cholecalciferol 0.05 mg oral capsule (4 sources) Vitamin D Start: 2023 End: 2023 take 1 capsule by mouth once daily Cholecalciferol (Vitamin D3) Discontinued 2000 UNIT PO Daily November 29, 2023 12:00am March 19, 2024 1:34pm [employer] capsule Orally Once a day; Note: Source Status: Start; Refills: 4; Provider: Miya Moise Start: 06-11-2023 take 1 capsule by [facility] every twenty-four hours Vitamin D3 50 MCG [...] Hydroxyzine Hcl Discontinued 25 MG PO Q6H 14 October 31, 2020 12:00am March 19, 2024 [...] on above: Take 1 tablet by joel twice daily. iv contrast (will be provided [...] Start: 12-28-2023 take 1 tablet by joel once daily pantoprazole DR (PROTONIX) 40 mg tablet Take 1 tablet by mouth once daily. 30 tablet 2 12/28/2023 Active Progesterone 200 MG supposit ory (6 sources) Start: 06-23-2024 End: 07-03-2024 Progesterone 200 MG supposit ory Indications: History of miscarriage Insert 200 mg into the vagina at bedtime Insert suppository vaginally every night at bedtime until 12 weeks gestation 30 suppository 3 06/23/2024 07/03/2024 Discontinued Start: 06-23-2024 End: 07-23-2024 Progesterone 200 MG supposit ory Indications: History of miscarriage Insert 200 mg into the vagina at bedtime Insert suppository vaginally every night at bedtime until 12 weeks gestation 30 suppository 3 06/23/2024 07/23/2024 Active sucralfate 1000 mg oral tablet (2 sources) Aluminum Complex Start: 12-24-2023 End: 12-28-2023 take 1 tablet by mouth three times daily sucralfate (CARAFATE) 1 gram tablet Take 1 tablet by mouth three times a day. 90 tablet 2 12/24/2023 12/28/2023 Discontinued Problems Active Problems Problem Classification Problem Date Documented Da te Episodic/Chronic Anxiety disorders (16 sources) Generalized anxiety disorder; Translations: [Generalized anxiety disorder] Onset: 2 Chronic Aortic; peripheral; and visceral artery aneurysms (1 source) Carotid artery aneurysm; Translations: [Aneurysm of carotid artery] 12-02-2020 Chronic Biliary tract disease (1 source) Cholecystitis, unspecified; Translations: [Cholecystitis] Onset: 4 Episodic Cardiac dysrhythmias (1 source) Supraventricular tachycardia; Translations: [Other supraventricular tachycardia (HCC)] 10-22-2023 Chronic Esophageal disorders (5 sources) Gastroesophageal reflux disease; Translations: [Gastro-esophageal reflux disease without esophagitis] 11-29-2023 Chronic Malaise and fatigue (20 sources) Chronic fatigue, unspecified; Translations: [Fatigue] Onset: 2 Chronic Menstrual disorders (8 sources) Irregular menstruation, unspecified; Translations: [Disorder of menstruation] Onset: 3 01-24-2023 Chronic Mood disorders (3 sources) Depressive disorder; Translations: [Depression] Onset: 4 04-16-2024 Chronic Neoplasms of unspecified nature or uncertain behavior (2 sources) Neoplastic disease; Translations: [Neoplasm of unspecified behavior of bone, soft tissue, and skin] 07-01-2024 Episodic Nutritional deficiencies (7 sources) Vitamin D deficiency; Translations: [Vitamin D deficiency, unspecified] Chronic Other aftercare (1 source) Surgical follow-up; Translations: [Encounter for follow-up examination after completed treatment for conditions other than malignant neoplasm] 12-05-2023 Episodic Other aftercare (2 sources) H/O: miscarriage; Translations: [Encounter for other specified aftercare] 07-03-2024 Episodic Other circulatory disease (5 sources) Celiac artery compression syndrome; Translations: [Celiac [...] stomach] Onset: 4 Episodic Other gastrointestinal disorders (20 sources) Irritable bowel syndrome with diarrhea; Translations: [Irritable bowel syndrome with diarrhea] Onset: 2 05-22-2023 Chronic Other gastrointestinal disorders (9 sources) Irritable bowel syndrome with diarrhea; Translations: [Irritable bowel syndrome] Onset: 3 Chronic Other gastrointestinal disorders (1 source) Intestinal malabsorption; Translations: [Intestinal malabsorption, unspecified] 02-06-2023 Chronic Other gastrointestinal disorders (1 source) Intestinal malabsorption, unspecified; Translations: [Intestinal malabsorption, unspecified type] Onset: 3 Chronic Other gastrointestinal disorders (4 sources) Diarrhea; Translations: [Diarrhea, unspecified] Episodic Other gastrointestinal disorders (9 sources) Diarrhea, unspecified; Translations: [Diarrhea, unspecified] Onset: 3 Episodic Other gastrointestinal disorders (4 sources) Personal [...] Onset: 3 Episodic Pancreatic disorders (not diabetes) (11 sources) Chronic pancreatitis; Translations: [Other chronic pancreatitis] [...] pain; Translations: [Right upper quadrant pain] Onset: 05-02-2022 Episodic Allergic reactions (20 sources) Urticaria; Translations: [...] Palpitations; Translations: [Palpitations] Onset: 11-07-2023 10-22-2023 Episodic Complication of device; implant or graft (7 sources) Pain; Translations: [Pain due to genitourinary prosthetic devices, implants and grafts, initial encounter] Onset: 01-24-2023 01-24-2023 Episodic Fever of unknown origin (4 sources) Fever, unspecified; Translations: [FEVER UNSPECIFIED] Onset: 07-27-2022 Episodic Fluid and electrolyte disorders (1 source) Dehydration; Translations: [DEHYDRATION] Onset: 08-24-2022 Episodic Gastritis and duodenitis (7 sources) Bile-induced gastritis; Translations: [Other gastritis without bleeding] Onset: 05-02-2022 01-24-2023 Episodic Genitourinary symptoms and ill-defined conditions (8 sources) Personal history of urinary (tract) infections; Translations: [Dysuria] Onset: 11-06-2022 01-24-2023 Episodic Immunizations and screening for infectious disease (2 sources) Contact with and (suspected) exposure to other viral communicable diseases; Translations: [Encounter for screening for human papillomavirus (HPV)] Onset: 05-05-2021 Resolved: 05-05-2021 Episodic Intestinal infection (20 sources) Clostridial enteric disease; 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 due to Clostridium difficile, not specified as recurrent] Onset: 09-27-2021 Resolved: 09-27-2021 Episodic Malaise and fatigue (4 sources) Weakness; Translations: [WEAKNESS] Onset: 08-22-2022 Episodic Miscellaneous mental health disorders (7 sources) Anxiety about body function or health; Translations: [Other symptoms and signs involving emotional state] Onset: 05-02-2022 01-24-2023 Episodic Nausea and vomiting (13 sources) Nausea; Translations: [Nausea] Onset: 05-02-2022 Episodic Noninfectious gastroenteritis (4 sources) Noninfective gastroenteritis and colitis, unspecified; Translations: [NONINFECTIVE GE AND COLITIS UNS] Onset: 02-01-2022 Episodic Other connective tissue disease (20 sources) Pain of bilateral upper limbs; Translations: [Pain in right arm] Onset: 12-08-2022 12-08-2022 Episodic Other diseases of veins and lymphatics (7 sources) Venous stenosis; Translations: [Compression of vein] Onset: 04-19-2023 04-19-2023 Episodic Other gastrointestinal disorders (7 sources) Altered bowel function; Translations: [Other specified symptoms and signs involving the digestive system and abdomen] Onset: 05-02-2022 01-24-2023 Episodic Other gastrointestinal disorders (7 sources) Borborygmi; Translations: [Other specified symptoms and signs involving the digestive system and abdomen] Onset: 05-02-2022 01-24-2023 Episodic Other infections; including parasitic (13 sources) Disorder due to infection; Translations: [Unspecified infectious disease] Onset: 12-09-2021 12-09-2021 Episodic Other infections; including parasitic (20 sources) Recurrent infectious disease; Translations: [Unspecified infectious disease] Onset: 12-09-2021 12-09-2021 Episodic Other lower respiratory disease (1 source) Difficulty breathing; Translations: [Other abnormalities of breathing] 03-12-2024 Episodic Other non-traumatic joint disorders (20 sources) Pain in left knee; Translations: [Pain in joint, lower leg] Onset: 12-09-2021 12-09-2021 Episodic Other non-traumatic joint disorders (20 sources) Chronic pain of left upper limb; Translations: [Pain in left shoulder] Onset: 12-09-2021 12-09-2021 Episodic Other nutritional; endocrine; and metabolic disorders (7 sources) Underweight; Translations: [Underweight] Onset: 05-02-2022 01-24-2023 Episodic Ovarian cyst (7 sources) Cyst of left ovary; Translations: [Unspecified ovarian cyst, left side] Onset: 01-24-2023 01-24-2023 Episodic Spondylosis; intervertebral disc disorders; other back problems (20 sources) Neck pain; Translations: [Cervicalgia] Onset: 12-09-2021 12-09-2021 Episodic Spontaneous (7 sources) Miscarriage; Translations: [Complete or unspecified spontaneous without complication] Onset: 01-24-2023 01-24-2023 Episodic Unclassified (5 sources) Onset: 02-05-2024 02-05-2024 Results Test Name Value Interpretation Reference Range Facility TB PREG QUANT HCGon 024 HCG QUANTITATIVE <1 mIU/mL [facility] Comment on above: 5-50 0.2-1 WEEK 50-500 1-2 WEEKS 100-5,000 2-3 WEEKS 500-10,000 3-4 WEEKS 1,000-50,000 4-5 WEEKS 10,000-100,000 5-6 WEEKS 15,000-200,000 6-8 WEEKS 10,000-100,000 2-3 MONTHS [facility] 07-03-2024 [facility] Telephone ([facility]) ----- ROSA ALONZO ([id number]) 2000 F Date Time Provider Department 07/03/24 JAY THOMPSON [facility] During your visit today, we recorded the following information about you: Gail Oropeza 07/03/2024 9:27 AM Addendum BLOCK CELIAC PLEXUS WITH C-ARM needs rescheduled. Please reach out to her to reschedule this. Shu Wilkins 07/07/2024 2:25 PM Signed BLOCK CELIAC PLEXUS WITH C-ARM ROSA ALONZO [id number] DESMOND HUFFMAN 07/21 -THINNERS -DM Patient was made aware that the ASC will call the day prior to scheduled procedure between the hours of 12 and 4 pm to advise patient of arrival time the day of procedure. Patient was advised that they will require a locomotive driver on the day of their procedure, and procedure will be cancelled if they arrive without a responsible adult to transport them home from the procedure. Patient advised that all medication management instructions prior to procedure will need addressed by clinical staff. Patient expresses understanding with no further questions or concerns at this time. Shu Wilkins 07/07/2024 2:26 PM Signed Case message sent to surgery pool to reschedule with Dr. Huffman from 07/04 to 07/21 in [place] per patient request. Shu Wilkins 07/08/2024 9:12 AM Signed Spoke to patient. Case message sent to surgery pool to reschedule with Dr. Huffman from 07/21 to 08/27 per patient request. Allergies As of Date: 07/03/2024 Noted Allergy Reaction METRONIDAZOLE 09/07/2020 1 - Mental Status Change 6 - Diarrhea 8 - GI Upset 4 - Hives 14 - Other: See Comments 2 - Rash 12 - Shortness of Breath 16 - Unknown 11 - Vomiting Date Reviewed: 04/30/2024 Reviewed by: Anabel Godwin LPN - Fully Assessed Reason for Visit: Appointment [[id number]] Schedule Injection [3026] Prescriptions as of 07/08/2024 - gabapentin (NEURONTIN) 100 mg capsule take 1 tab PO qHS x 3 days, then take 1 tab PO BID x 3 days, then take 2 tabs PO BID if tolerated. - escitalopram oxalate (LEXAPRO) 10 mg tablet Take 5 mg by mouth once daily. - ondansetron (ZOFRAN) 4 mg tablet Take 4 mg by mouth as needed. Problem List As Of Date 07/03/2024 Noted Resolved Cervicalgia [M54.2] 12/09/2021 Chronic pain [...] 11/15/2023 Palpitations [R00.2] 11/15/2023 Encounter Status:Closed by GAIL OROPEZA on 07/03/[address] [facility] No Panel Informationon 07-01 Type of biopsy: tangential Informed consent: discussed and consent obtained Informed consent comment: The risks and benefits of the biopsy were discussed. Risks include but are not limited to bleeding, infection, scarring, pain, and nerve damage. An opportunity to ask questions prior to the procedure was permitted and all questions were answered. Patient was prepped and draped in usual sterile fashion: area cleansed with alcohol. Anesthesia: the lesion was anesthetized in a standard fashion Anesthetic: 1% lidocaine w/ epinephrine 1-100,000 buffered w/ 8.4% NaHCO3 Instrument used: DermaBlade Hemostasis achieved with: electrodesiccation Outcome: patient tolerated procedure well Outcome comment: The specimen was placed in a prelabeled formalin container to be sent for pathology Post-procedure details: sterile dressing applied and wound care instructions given Post-procedure details comment: Emphasized need to contact clinic for any signs of infection, uncontrollable bleeding, or complications. Dressing type: bandage Additional details: Photo taken yes Amount of lidocaine used: 0.4 cc [facility] [place]al[place] No Panel InformationOrdered By: Kayla Griffith on 07-01-2024 [employer] Christine 06-23-2024 [facility] Telephone ([facility]) ----- ROSA ALONZO ([id number]) 2000 F Date Time Provider Department 06/23/24 SANTIAGO HUFFMAN During your visit today, we recorded the following information about you: Bonny Joyner 06/23/2024 10:58 AM Addendum PT called asking to cancel their procedure scheduled on 07/04/2024. Please review and advise. Thank you! Romel Wilkinshel 06/23/2024 4:54 PM Signed Case message sent [...] Encounter Status:Closed by BONNY JOYNER on 06/23/24 [facility] ----- ROSA ALONZO N ([id number]) 2000 F Date Time Provider Department 05/14/24 SANTIAGO HUFFMAN During your visit today, we recorded the following information about you: Shu Wilkins 05/14/2024 1:48 PM Signed diagnostic celiac plexus blockade ROSA ALONZO [id number] BHARATHI 07/04 -THINNERS -DM Patient was made aware that the ASC will call the day prior to scheduled procedure between the hours of 12 and 4 pm to advise patient of arrival time the day of procedure. Patient was advised that they will require a locomotive driver on the day of their procedure, [...] neuritis [M79.2] Order(s):SURGICAL REQUEST - ELECTIVE (02/2020) [[id number]] Order #: [id number]: 1 Prescriptions as of 05/14/2024 - gabapentin [...] Encounter Status:Closed by SHU WILKINS on 05/14/24 [facility] Telephone ([facility]) ----- ROSA ALONZO ([id number]) 2000 F Date Time Provider Department 05/14/24 [...] Fully Assessed Reason for Visit: Schedule Injection [8708] Prescriptions as of 05/14/2024 - gabapentin (NEURONTIN) [...] Encounter Status:Closed by SHU WILKINS on 05/14/24 [facility] CNSARAHYon 04-30-2024 CNOV Office Visit ([facility] ) ----- ROSA ALONZO ([id number]) 2000 F Date Time Provider Department 04/30/24 [...] No Relevant OARRS records were reviewed by physicianamado Opioid Agreement: No Receiving Disability Income: Yes [...] No d (more content not included)... Normal [facility] 04-24-2024 CNPN Telephone (LENA) ----- ROSA ALONZO ([id number]) 2000 F Date Time Provider Department 04/24/24 ISABELLE MENON During your visit today, we recorded the following information about you: Gisela Ponce, RN 04/24/2024 3:00 PM Signed Pt of [...] Status:Closed by GISELA PONCE on 04/24/[address] [facility] EGD Study observation Clarice villeda 04-16-2024 Table formatting fro m the original result was not included. Impression Normal. The esophagus appeared normal. The stomach appeared normal. Erythematous mucosa in the antrum The duodenum appeared normal. The cardia appeared normal. Findings Normal The esophagus appeared normal. Regular Z-line 40 cm from the incisors The stomach appeared normal. Erythematous mucosa in the antrum The duodenum appeared normal. The cardia appeared normal. Recommendation Await pathology results Follow up with me in clinic, due: 04/30/[address] and imaging Follow up in office virtual to review results. Consider meds for the gastritis Indication Median arcuate ligament syndrome (CMS-HCC) Staff Staff Role No Staff Documented Medications See Anesthesia Record. Preprocedure A history and physical has been performed, and patient medication allergies have been reviewed. The patient's tolerance of previous anesthesia has been reviewed. The risks and benefits of the procedure and the sedation options and risks were discussed with the patient and family . All questions were answered and informed consent obtained. Details of the Procedure The patient underwent monitored anesthesia care, which was administered by an anesthesia professional. The patient's blood pressure, ECG, ETCO2, heart rate, level of consciousness, respirations and oxygen were monitored throughout the procedure. The scope was introduced through the mouth and advanced to the second part of the duodenum. Retroflexion was performed in the cardia. Prior to the procedure, the patient's H. Pylori status was unknown. The patient's estimated blood loss was minimal (<5 mL). The procedure was not difficult. The patient tolerated the procedure well. There were no apparent adverse events. Events Procedure Events Event Event Time ENDO SCOPE IN TIME 04/16/2024 10:09 AM ENDO SCOPE OUT TIME 04/16/2024 10:17 AM Specimens ID Type Source Tests Collected by Time 1 : Cold Bx Tissue DUODENUM SECOND PART BIOPSY SURGICAL PATHOLOGY EXAM Whitney Ambriz MD MPH 04/16/2024 1012 2 : Evaluate for H pylori and Gastritis Tissue ANTRUM BODY BIOPSY SURGICAL PATHOLOGY EXAM Whitney Ambriz MD MPH 04/16/2024 1016 Procedure Location [facility] [address] [address] [place] [facility] [address] Referring Provider Whitney Ambriz MD MPH Procedure Provider Whitney Ambriz MD MPH [facility] Work Phone: Radiology Study observation (narrative) [facility] Work Phone: EGD Study observation Narrat iveOrdered By: Whitney Ambriz on 04-16-2024 [facility] Work Phone: HCG ( test) Ql (U)o n 04-16-2024 Interpretation and review of laboratory results Normal [facility] Work Phone: Preg Test, Ur Negative Negative [facility] Work Phone: [facility] Work Phone: CNOVon 03-26-2024 CNOV Office Visit ([facility] ) ----- ROSA ALONZO ([id number]) 2000 F Date Time Provider Department 03/26/24 [...] Status:Closed by ZENON PRETTY on 03/26/[address] [facility] No Panel Informationon 03-16 [facility] C diff Tox gens Stl Ql RUCHI+p robeon 03-13-2024 C. difficile toxin genes RUCHI+probe Ql (Stl) Negative Normal Negative for C. difficile toxin by PCR [facility] Comment on above: Order Comment: Speci men Type: STOOL SPECIMEN Ordering Facility: [facility] Address: [address] [place] [address] Performed By: #### 5 4067-4 #### [facility] CLIA [id number] [address] [place] [address] [place] [address] [place] C. DIFFICILE PCRon C. difficile toxin genes RUCHI+probe Ql (Stl) Negative Negative for C. difficile toxin by PCR [facility] C. difficile toxin genes RUCHI +probe Ql (Stl)on 03-13-2024 Interpretation and review of laboratory results Normal [facility] CNOVon 02-26-2024 CNOV Office Visit ([facility] ) ----- ROSA ALONZO ([id number]) 2000 F Date Time Provider Department 02/26/24 [...] date: COLONOSCOPY (more content not included)... Normal [facility] Gastrointestinal tract up per Views W barium contrast Aime 02-11-2024 IMPRESSION: Mild gastroesophageal reflux and mild esophageal dysmotility. Otherwise, unremarkable upper GI series. Dipper Operator: FRANCISCO Transcribe Date/Time: Feb 11 2024 11:34A Dictated by : ANJALI HALEY MD This examination was interpreted and the report reviewed and electronically signed by: ANJALI HALEY MD on Feb 11 2024 4:03PM [facility] * * *Final Report* * * [...] somewhat limited assessment of the gastric cardia/fundus. [facility] Provider, Letty [facility] - 02/11/2024 * * *Final Report* * [...] esophageal dysmotility. Otherwise, unremarkable upper GI series. Dipper Operator: FRANCISCO Transcribe Date/Time: Feb 11 2024 11:34A Dictated by : ANJALI HALEY MD This examination was interpreted and the report reviewed and electronically signed by: ANJALI HALEY MD on Feb 11 2024 4:03PM EST [facility] Radiology Study observation (narrative) [facility] RF Gastrointestinal tract up per Views W barium contrast POOrdered By: Ccf Provider on 02-11-2024 [facility] XR UPPER GI SINGLE CONTRASTo n [...] esophageal dysmotility. Otherwise, unremarkable upper GI series. Dipper Operator: FRANCISCO Transcribe Date/Time: Feb 11 2024 11:34A Dictated by : ANJALI HALEY MD This examination was interpreted and the report reviewed and electronically signed by: ANJALI HALEY MD on Feb 11 2024 4:03PM EST [id number] Normal [facility] NM GASTRIC EMPTYING SOLIDon 01-30-2024 NM GASTRIC EMPTYING SOLID * * *Final Report* * * DATE OF EXAM: Jan 30 2024 1:51PM [facility] 0017 - NM GASTRIC EMPTYING SOLID / [...] which lowers the sensitivity of the study. Dipper Operator: Picket Transcribe Date/Time: Jan 30 2024 2:09P Dictated by : JOSELUIS MORA MD This examination was interpreted and the report reviewed and electronically signed by: JOSELUIS MORA MD on Jan 30 2024 2:10PM EST [id number] Normal [facility] Stomach Views for gastric emptying solid phase W radionuclide Aime 01-30-2024 IMPRESSION: Normal rate of gastric emptying of a solid meal. However patient consumed less than the standard meal, which lowers the sensitivity of the study. Dipper Operator: Picket Transcribe Date/Time: Jan 30 2024 2:09P Dictated by : JOSELUIS MORA MD This examination was interpreted and the report reviewed and electronically signed by: JOSELUIS MORA MD on Jan 30 2024 2:10PM [facility] * * *Final Report* * * DATE OF EXAM: Jan 30 2024 1:51PM [facility] 0017 - NM GASTRIC EMPTYING SOLID / [...] retention at 4 hours (normal range, 0-10%). [facility] Provider, Letty Best - 01/30/2024 * * *Final Report* * * DATE OF EXAM: Jan 30 2024 1:51PM [facility] 0017 - NM GASTRIC EMPTYING SOLID / [...] which lowers the sensitivity of the study. Dipper Operator: PSCB Transcribe Date/Time: Jan 30 2024 2:09P Dictated by : JOSELUIS MORA MD This examination was interpreted and the report reviewed and electronically signed by: JOSELUIS MORA MD on Jan 30 2024 2:10PM [facility] Radiology Study observation (narrative) [facility] Stomach Views for gastric emptying solid phase W radionuclide POOrdered By: Letty Provider on 01-30-2024 [facility] Christine 01-29-2024 ANA Telephone ([facility]) ----- CLINTONROSA Newberry Roland ([id number]) 2000 F Date Time Provider Department 01/29/24 [...] Encounter Status:Closed by EVELIA HARP on 01/29/24 Normal [facility] Meet 01-01-2024 L Specimen: [id number] Received: 01/02/24 Status: TRUDY Mosley Num: [id number] Spec Type: Surgical Subm Dr: Ana Bolton DO Tissues: A Appendix - Other than Incidental (APPENDIX) Procedures: HE/2, Gross/Micro L3 Age/ Patient Sex Location Account Attending Physician ClintonRosa N 23/F [place] [id number] Ana Bolton DO SPEC NUM: [id number] RECD: 01/02/24 STATUS: TRUDY MOSLEY NUM: [id number] RAQUEL: 01/01/[address]: Ana Bolton DO ENTERED: 01/02/24 [facility] DR: Verena Bettencourt SPEC TYPE: [...] masses or areas of perforation are identified. Engineering And Development Director sections are submitted in A1 (base and midportion)?A2 (entire distal tip). CPT Codes 24574 Specimen: [id number] Received: 01/02/24140 Status: TRUDY Mosley Num: [id number] Spec Type: Surgical Subm Dr: Ana Bolton DO Tissues: A Appendix - Other than Incidental (APPENDIX) Procedures: HE/2, Gross/Micro L3 Patient: Rosa Alonzo [id number] (Continued) Signed (signature on file) Sourav Cabello MD 01/03/24 6322 Normal [facility] JENNIFEROVrozina 12-28-2023 JENNIFEROV Office Visit ([facility] ) ----- ROSA ALONZO ([id number]) 2000 F Date Time Provider Department 12/28/23 3:00 PM DARA BUTLER JR [facility] During your visit today, we recorded the following information about you: Dara Butler Jr., DO 12/28/2023 3:30 PM Signed No chief complaint [...] an issue, start amitriptyline. [facility] fail to improve. Although the [...] last colonoscopy was 8 months ago in [place]. Start amitriptyline Keep appt with Dr. Menon [...] divisum. 12/01/22 HIDA scan was done at [facility]: Normal study EF 69% US: 10/31/22: (care everywhere) Liver normal Gallbaldder appears normal with no stones or sludge. No gallblad (more content not included)... Normal [facility] Amylase SerPl-cCncon 024 Amylase [Catalytic activity/Vol] 44 U/L Normal 30-[address] [facility] Comment on above: Order Comment: Speci men Type: STOOL SPECIMEN Ordering Facility: [facility] Address: [address] [place] [address] Performed By: #### 5 4067-4 #### [facility] CLIA [id number] [address] [place] [address] [id number] [address] [place] Basophils Auto (Bld) [#/Vol] on 12-27-2023 Basophils (Bld) [#/Vol] 0.04 10*3/uL <0.11 [facility] Basophils/100 WBC Auto (Bld) on 12-27-2023 Basophils/100 WBC (Bld) 0.8 % [facility] Blood manual differential co mment interpretation narrativeon 12-27-2023 Manual differential comment Ganga (Bld) [Interp] Auto [facility] CBC W Auto Differential pane l (Bld)on 12-27-2023 Basophils (Bld) [#/Vol] 0.04 10*3/uL Normal <0.[address] [facility] Comment on above: Order Comment: Speci men Type: BLOOD SPECIMENOrdering Facility: [facility] Address: [address] [place] [address] Performed By: #### 5 7021-8 ####[facility] LABCLIA [id number] [place] [address] Basophils/100 WBC (Bld) 0.8 % Normal [facility] Comment on above: Order Comment: Speci men Type: BLOOD SPECIMENOrdering Facility: [facility] Address: [address] [place] [address] Performed By: #### 5 7021-8 ####[facility] LABCLIA [id number] [place] [address] Differential cell count method Nom (Bld) Auto Normal [facility] Comment on above: Order Comment: Speci men Type: BLOOD SPECIMENOrdering Facility: [facility] Address: [address] [place] [address] Performed By: #### 5 7021-8 ####[facility] LABCLIA [id number] [place] [address] Eosinophils (Bld) [#/Vol] 0.22 10*3/uL Normal <0.[address] [facility] Comment on above: Order Comment: Speci men Type: BLOOD SPECIMENOrdering Facility: [facility] Address: [address] [place] [address] Performed By: #### 5 7021-8 ####[facility] LABCLIA [id number] [place] [address] Eosinophils/100 WBC (Bld) 4.3 % Normal [facility] Comment on above: Order Comment: Speci men Type: BLOOD SPECIMENOrdering Facility: [facility] Address: [address] [place] [address] Performed By: #### 5 7021-8 ####[facility] LABCLIA [id number] [place] [address] Erythrocyte distribution width (RBC) [Ratio] 11.6 % Normal 11.5-15.[address] [facility] Comment on above: Order Comment: Speci men Type: BLOOD SPECIMENOrdering Facility: [facility] Address: [address] [place] [address] Performed By: #### 5 7021-8 ####[facility] LABCLIA [id number] [place] [address] Hematocrit (Bld) [Volume fraction] 41.5 % Normal 36.0-46.[address] [facility] Comment on above: Order Comment: Speci men Type: BLOOD SPECIMENOrdering Facility: [facility] Address: [address] [place] [address] Performed By: #### 5 7021-8 ####[facility] LABCLIA [id number] [place] [address] Hemoglobin (Bld) [Mass/Vol] 14.1 g/dL Normal 11.5-15.[address] [facility] Comment on above: Order Comment: Speci men Type: BLOOD SPECIMENOrdering Facility: [facility] Address: [address] [place] [address] Performed By: #### 5 7021-8 ####[facility] LABCLIA [id number] [place] [address] Immature granulocytes (Bld) [#/Vol] 10*3/uL Normal <0.[address] [facility] Comment on above: Order Comment: Speci men Type: BLOOD SPECIMENOrdering Facility: [facility] Address: [address] [place] [address] Performed By: #### 5 7021-8 ####[facility] LABCLIA [id number] [place] [address] Immature granulocytes/100 WBC (Bld) 0.2 % Normal [facility] Comment on above: Order Comment: Speci men Type: BLOOD SPECIMENOrdering Facility: [facility] Address: [address] [place] [address] Performed By: #### 5 7021-8 ####[facility] LABCLIA [id number] [place] [address] Lymphocytes (Bld) [#/Vol] 2.06 10*3/uL Normal 1.00-4.[address] [facility] Comment on above: Order Comment: Speci men Type: BLOOD SPECIMENOrdering Facility: [facility] Address: [address] [place] [address] Performed By: #### 5 7021-8 ####[facility] LABCLIA [id number] [place] [address] Lymphocytes/100 WBC (Bld) 39.8 % Normal [facility] Comment on above: Order Comment: Speci men Type: BLOOD SPECIMENOrdering Facility: [facility] Address: [address] [place] [address] Performed By: #### 5 7021-8 ####[facility] LABCLIA [id number] [place] [address] MCH (RBC) [Entitic mass] 31.5 pg Normal 26.0-34.[address] [facility] Comment on above: Order Comment: Speci men Type: BLOOD SPECIMENOrdering Facility: [facility] Address: [address] [place] [address] Performed By: #### 5 7021-8 ####[facility] LABCLIA [id number] [place] [address] MCHC (RBC) [Mass/Vol] 34.0 g/dL Normal 30.5-36.0 [facility] Comment on above: Order Comment: Speci men Type: BLOOD SPECIMENOrdering Facility: [facility] Address: [address] [place] [address] Performed By: #### 5 7021-8 ####[facility] LABIA [id number] [place] [address] MCV (RBC) [Entitic vol] 92.6 fL Normal 80.0-100.[address] [facility] Comment on above: Order Comment: Speci men Type: BLOOD SPECIMENOrdering Facility: [facility] Address: [address] [place] [address] Performed By: #### 5 7021-8 ####[facility] LABIA [id number] [place] [address] Monocytes (Bld) [#/Vol] 0.42 10*3/uL Normal <0.[address] [facility] Comment on above: Order Comment: Speci men Type: BLOOD SPECIMENOrdering Facility: [facility] Address: [address] [place] [address] Performed By: #### 5 7021-8 ####[facility] LABCLIA [id number] [place] [address] Monocytes/100 WBC (Bld) 8.1 % Normal [facility] Comment on above: Order Comment: Speci men Type: BLOOD SPECIMENOrdering Facility: [facility] Address: [address] [place] [address] Performed By: #### 5 7021-8 ####[facility] LABCLIA [id number] [place] [address] Neutrophils (Bld) [#/Vol] 2.42 10*3/uL Normal 1.45-7.[address] [facility] Comment on above: Order Comment: Speci men Type: BLOOD SPECIMENOrdering Facility: [facility] Address: [address] [place] [address] Performed By: #### 5 7021-8 ####[facility] LABCLIA [id number] [place] [address] Neutrophils/100 WBC (Bld) 46.8 % Normal [facility] Comment on above: Order Comment: Speci men Type: BLOOD SPECIMENOrdering Facility: [facility] Address: [address] [place] [address] Performed By: #### 5 7021-8 ####[facility] LABCLIA [id number] [place] [address] Nucleated RBC (Bld) [#/Vol] 10*3/uL Normal <0.[address] [facility] Comment on above: Order Comment: Speci men Type: BLOOD SPECIMENOrdering Facility: [facility] Address: [address] [place] [address] Performed By: #### 5 7021-8 ####[facility] LABCLIA [id number] [place] [address] Nucleated RBC/100 WBC (Bld) [Ratio] 0.0 /100 WBC Normal [facility] Comment on above: Order Comment: Speci men Type: BLOOD SPECIMENOrdering Facility: [facility] Address: [address] [place] [address] Performed By: #### 5 7021-8 ####[facility] LABCLIA [id number] [place] [address] Platelet mean volume (Bld) [Entitic vol] 10.5 fL Normal 9.0-12.[address] [facility] Comment on above: Order Comment: Speci men Type: BLOOD SPECIMENOrdering Facility: [facility] Address: [address] [place] [address] Performed By: #### 5 7021-8 ####[facility] LABCLIA [id number] [place] [address] Platelets (Bld) [#/Vol] 179 10*3/uL Normal 150-[address] [facility] Comment on above: Order Comment: Speci men Type: BLOOD SPECIMENOrdering Facility: [facility] Address: [address] [place] [address] Performed By: #### 5 7021-8 ####[facility] LABIA [id number] [place] [address] RBC (Bld) [#/Vol] 4.48 10*6/uL Normal 3.90-5.20 [facility] Comment on above: Order Comment: Speci men Type: BLOOD SPECIMENOrdering Facility: [facility] Address: [address] [place] [address] Performed By: #### 5 7021-8 ####[facility] LABIA [id number] [place] [address] WBC (Bld) [#/Vol] 5.17 10*3/uL Normal 3.70-11.00 [facility] Comment on above: Order Comment: Speci men Type: BLOOD SPECIMENOrdering Facility: [facility] Address: [address] [place] [address] Performed By: #### 5 7021-8 ####[facility] LABIA [id number] [place] [address] CRP [facility] 06-06-2024 CRP [Mass/Vol] mg/L Normal <0.[address] [facility] Comment on above: Order Comment: Speci men Type: STOOL SPECIMEN Order[facility] Address: [address] [place] [address] Performed By: #### 5 4067-4 #### [facility] CLIA [id number] [facility] [place] [address] [facility] Comprehensive metabolic 2000 panelon 12-27-2023 Albumin [Mass/Vol] 4.6 g/dL Normal 3.9-4.9 [facility] Comment on above: Order Comment: Speci men Type: BLOOD SPECIMENOrdering Facility: [facility] Address: [address] [place] [address] Performed By: #### 2 4323-8 ####[facility] LABCLIA [id number] [place] [address] ALP [Catalytic activity/Vol] 53 U/L Normal 34-[address] [facility] Comment on above: Order Comment: Speci men Type: BLOOD SPECIMENOrdering Facility: [facility] Address: [address] [place] [address] Performed By: #### 2 4323-8 ####[facility] [id number] [place] [address] ALT [Catalytic activity/Vol] 9 U/L Normal 7-[address] [facility] Comment on above: Order Comment: Speci men Type: BLOOD SPECIMENOrdering Facility: [facility] Address: [address] [place] [address] Performed By: #### 2 4323-8 ####[facility] LABCLIA [id number] [place] [address] Anion gap [Moles/Vol] 6 mmol/L Low 8-15 [facility] Comment on above: Order Comment: Speci men Type: BLOOD SPECIMENOrdering Facility: [facility] Address: [address] [place] [address] Performed By: #### 2 4323-8 ####[facility] LABCLIA [id number] [place] [address] AST [Catalytic activity/Vol] 14 U/L Normal 13-[address] [facility] Comment on above: Order Comment: Speci men Type: BLOOD SPECIMENOrdering Facility: [facility] Address: [address] [place] [address] Performed By: #### 2 4323-8 ####[facility] LABCLIA [id number] [place] [address] Bilirubin [Mass/Vol] 0.5 mg/dL Normal 0.2-1.3 [facility] Comment on above: Order Comment: Speci men Type: BLOOD SPECIMENOrdering Facility: [facility] Address: [address] [place] [address] Performed By: #### 2 4323-8 ####[facility] LABCLIA [id number] [place] [address] Calcium [Mass/Vol] 10.2 mg/dL Normal 8.5-10.2 [facility] Comment on above: Order Comment: Speci men Type: BLOOD SPECIMENOrdering Facility: [facility] Address: [address] [place] [address] Performed By: #### 2 4323-8 ####[facility] LABCLIA [id number] [place] [address] Chloride [Moles/Vol] 103 mmol/L Normal 98-107 [facility] Comment on above: Order Comment: Speci men Type: BLOOD SPECIMENOrdering Facility: [facility] Address: [address] [place] [address] Performed By: #### 2 4323-8 ####[facility] LABCLIA [id number] [place] [address] CO2 [Moles/Vol] 28 mmol/L Normal 22-[address] [facility] Comment on above: Order Comment: Speci men Type: BLOOD SPECIMENOrdering Facility: [facility] Address: [address] [place] [address] Performed By: #### 2 4323-8 ####[facility] LABCLIA [id number] [place] [address] Creatinine [Mass/Vol] 0.68 mg/dL Normal 0.58-0.96 [facility] Comment on above: Order Comment: Speci men Type: BLOOD SPECIMENOrdering Facility: [facility] Address: [address] [place] [address] Performed By: #### 2 4323-8 ####[facility] LABCLIA [id number] [place] [address] Creatinine and Glomerular filtration rate.predicted panel (S/P/Bld) 124 mL/min/1.73m??? Normal >=[address] [facility] Comment on above: Order Comment: Speci men Type: BLOOD SPECIMENOrdering Facility: [facility] Address: [address] [place] [address] Result Comment: Ny mated Glomerular Filtration Rate [...] actual GFR. Performed By: #### 2 4323-8 ####[facility] LABCLIA [id number] [place] [address] Glucose [Mass/Vol] 97 mg/dL Normal 74-99 [facility] Comment on above: Order Comment: Speci men Type: BLOOD SPECIMENOrdering Facility: [facility] Address: [address] [id number] Result Comment: The [place] Diabetes Association (ADA) provides guidance for cutoff [...] Standards of Medical Care in Diabetes 2016, [place] [employer]. Diabetes Care. 2016.39(Suppl 1). Performed By: #### 2 4323-8 ####[facility] LABCLIA [id number] [place] [address] Potassium [Moles/Vol] 4.3 mmol/L Normal 3.7-5.1 [facility] Comment on above: Order Comment: Speci men Type: BLOOD SPECIMENOrdering Facility: [facility] Address: [address] [place] [address] Performed By: #### 2 4323-8 ####[facility] LABCLIA [id number] [place] [address] Protein [Mass/Vol] 7.2 g/dL Normal 6.3-8.0 [facility] Comment on above: Order Comment: Speci men Type: BLOOD SPECIMENOrdering Facility: [facility] Address: [address] [place] [address] Performed By: #### 2 4323-8 ####[facility] LABCLIA [id number] [place] [address] Sodium [Moles/Vol] 137 mmol/L Normal 136-144 [facility] Comment on above: Order Comment: Speci men Type: BLOOD SPECIMENOrdering Facility: [facility] Address: [address] [place] [address] Performed By: #### 2 4323-8 ####[facility] LABCLIA [id number] [place] [address] Urea nitrogen [Mass/Vol] 13 mg/dL Normal 7-[address] [facility] Comment on above: Order Comment: Speci men Type: BLOOD SPECIMENOrdering Facility: [facility] Address: [address] [place] [address] Performed By: #### 2 4323-8 ####[facility] LABCLIA [id number] [place] [address] ESR Westergren method (Bld) [Velocity]on 12-27-2023 ESR (Bld) [Velocity] 12 mm/h Normal 0-20 [facility] Comment on above: Order Comment: Speci men Type: BLOOD SPECIMEN [facility] Address: [address] [place] [address] Performed By: #### 4 537-7 #### [facility] CLIA [id number] [address] [place] [address] [place] [address] [place] Eosinophils/100 WBC Auto (Bl d)on 12-27-2023 Eosinophils/100 WBC (Bld) 4.3 % [facility] Erythrocyte distribution wid th Auto (RBC) [Ratio]on 12-27-2023 Erythrocyte distribution width (RBC) [Ratio] 11.6 % 11.5-15.0 [facility] Hematocrit Auto (Bld) [Volum e fraction]on 12-27-2023 Hematocrit (Bld) [Volume fraction] 41.5 % 36.0-46.0 [facility] Hemoglobin [Mass/volume] in Bloodon 12-27-2023 Hemoglobin (Bld) [Mass/Vol] 14.1 g/dL 11.5-15.5 [facility] Laboratory - Chemistry and C hemistry - challengeon 12-27-2023 Albumin [Mass/Vol] 4.6 g/dL 3.9-4.9 [facility] ALP [Catalytic activity/Vol] 53 U/L 34-123 [facility] ALT [Catalytic activity/Vol] 9 U/L 7-38 [facility] Amylase [Catalytic activity/Vol] 44 U/L 30-104 [facility] AST [Catalytic activity/Vol] 14 U/L 13-35 [facility] Bilirubin [Mass/Vol] 0.5 mg/dL 0.2-1.[address] [facility] Calcium [Mass/Vol] 10.2 mg/dL 8.5-10.2 [facility] Chloride [Moles/Vol] 103 mmol/L 98-[address] [facility] CO2 [Moles/Vol] 28 mmol/L 22-30 [facility] Creatinine [Mass/Vol] 0.68 mg/dL 0.58-0.96 [facility] Glucose [Mass/Vol] 97 mg/dL 74-99 [facility] Comment on above: The [place] Diabete s Association (ADA) provides guidance for [...] Standards of Medical Care in Diabetes 2016, [place] [employer]. Diabetes Care. 2016.39(Suppl 1). Lipase [Catalytic activity/Vol] 22 U/L 16-61 [facility] Potassium [Moles/Vol] 4.3 mmol/L 3.7-5.1 [facility] Sodium [Moles/Vol] 137 mmol/L 136-144 [facility] Urea nitrogen [Mass/Vol] 13 mg/dL 7-21 [facility] Laboratory - Hematology and Cell countson 12-27-2023 Eosinophils (Bld) [#/Vol] 0.22 10*3/uL <0.46 [facility] ESR (Bld) [Velocity] 12 mm/h 0-[address] [facility] Immature granulocytes/100 WBC (Bld) 0.2 % [facility] Leukocytes [#/volume] correc shena for nucleated erythrocytes in Blood by Automated counon 12-27-2023 WBC corrected for nucl RBC Auto (Bld) [#/Vol] 5.17 k/uL 3.70-11.00 [facility] Lipase SerPl-cCncon 12-27-19 24 Lipase [Catalytic activity/Vol] 22 U/L Normal 16-[address] [facility] Comment on above: Order Comment: Speci men Type: STOOL SPECIMEN [facility] Address: [address] [place] [address] Performed By: #### 5 4067-4 #### [facility] CLIA [id number] [address] [place] [address] [place] [place] [address] [place] Lymphocytes Auto (Bld) [#/Vo l]on 12-27-2023 Lymphocytes (Bld) [#/Vol] 2.06 10*3/uL 1.00-4.00 [facility] Lymphocytes/100 WBC Auto (Bl d)on 12-27-2023 Lymphocytes/100 WBC (Bld) 39.8 % [facility] MCH Auto (RBC) [Entitic mass ]on 12-27-2023 MCH (RBC) [Entitic mass] 31.5 pg 26.0-34.0 [facility] MCHC Auto (RBC) [Mass/Vol]on 12-27-2023 MCHC (RBC) [Mass/Vol] 34.0 g/dL 30.5-36.0 [facility] MCV Auto (RBC) [Entitic vol] on 12-27-2023 MCV (RBC) [Entitic vol] 92.6 fL 80.0-100.0 [facility] Monocytes Auto (Bld) [#/Vol] on 12-27-2023 Monocytes (Bld) [#/Vol] 0.42 10*3/uL <0.87 [facility] Monocytes/100 WBC Auto (Bld) on 12-27-2023 Monocytes/100 WBC (Bld) 8.1 % [facility] Neutrophils Auto (Bld) [#/Vo l]on 12-27-2023 Neutrophils (Bld) [#/Vol] 2.42 10*3/uL 1.45-7.50 [facility] Neutrophils/100 WBC Auto (Bl d)on 12-27-2023 Neutrophils/100 WBC (Bld) 46.8 % [facility] No Panel Informationon 12-26 C-Reactive Protein, Quantitative <0.3 mg/dL <0.9 [facility] Estimated GFR (CKD-EPI) 124 mL/min/1.73m??? >=60 [facility] Comment on above: Estimated Glomerular Filtration [...] Immature Granulocyte # (Auto) <0.03 k/uL <0.10 [facility] Nucleated RBC Auto (Bld) [#/ Vol]on 12-27-2023 Nucleated RBC (Bld) [#/Vol] 10*3/uL <0.01 [facility] Nucleated erythrocytes [Pres ence] in Blood by Automated counton 12-27-2023 Nucleated RBC Auto Ql (Bld) 0.0 /100{WBC} [facility] Platelet mean volume Auto (B ld) [Entitic vol]on 12-27-2023 Platelet mean volume (Bld) [Entitic vol] 10.5 fL 9.0-12.7 [facility] Platelets Auto (Bld) [#/Vol] on 12-27-2023 Platelets (Bld) [#/Vol] 179 10*3/uL 150-400 [facility] Protein [Mass/volume] in Ser um or Plasmaon 12-27-2023 Protein [Mass/Vol] 7.2 g/dL 6.3-8.0 [facility] RBC Auto (Bld) [#/Vol]on RBC (Bld) [#/Vol] 4.48 10*6/uL 3.90-5.20 [facility] Serum or plasma anion gap de terminationon 12-27-2023 Anion gap [Moles/Vol] 6 mmol/L Low 8-15 [facility] CNCOon 12-05-2023 CNCO Letter Text Normal [facility] CNOVon 12-05-2023 CNOV Office Visit ([id number] ) ----- ROSA ALONZO ([id number]) 2000 F Date Time Provider Department 12/05/23 2:00 PM ARIELLA MCCOY [id number] During your visit today, we recorded the following information about you: Temperature Pulse Blood pressure Weight 98 degrees 90/minute 106/64 50.8 kg Height 1.626 m [place] 12/05/2023 1:49 PM Signed What is [...] dry Temperature: No Drains: No Ariella Mccoy APRN.SITE PLANNER 12/05/2023 2:23 PM Signed GENERAL SURGERY FOLLOW [...] that may arise. Follow up: KAREN Mccoy APRN.SITE PLANNER Referring Provider: ANALIA HOLLIDAY [[id number]] Allergies As of Date: 12/05/2023 Noted Allergy Reaction METRONIDAZOLE 09/07/2020 1 - Mental Status Change 6 - Diarrhea 8 - GI Upset 4 - Hives 14 - Other: See Comments 2 - Rash 12 - Shortness of Breath 16 - Unknown 11 - Vomiting Date Reviewed: 12/05/2023 Reviewed by: Ariella Mccoy APRN.SITE PLANNER - Fully Assessed Reason for Visit: Post [...] for Encounter Date Provider Department Center 12/05/2023 [id number] MCCOY [id number] [facility] Encounter Status:Closed by ARIELLA MCCOY on 12/05/[address] [facility] ANES POSTPROC EVALon 024 ANES POSTPROC EVAL HNO ID: [id number] Author: MOSHE KRISHNAMURTHY DO Service: Anesthesiology Author Type: Anesthesiologist Type: Anesthesia Postprocedure Evaluation Filed: 11/21/2023 17:47 Note Text: POST ANESTHESIA EVALUATION NOTE : 2000 Procedure Summary Date: 11/21/23 Room / Location: OR06 / OR Anesthesia Start: 1408 Anesthesia Stop: 1544 Procedure: LAPAROSCOPIC CHOLECYSTECTOMY (Gallbladder) Diagnosis: Cholecystitis (Cholecystitis [K81.9]) Surgeons: eSema Davis MD Responsible Provider: Moshe Krishnamurthy DO [...] November 21, 2023 TIME: 5:47 PM CSN: [id number] [facility] ANES PRE-OPon 11-21-2023 ANES PRE-OP HNO ID: [id number] Author: MOSHE KRISHNAMURTHY DO Service: Anesthesiology Author Type: Anesthesiologist Type: Anesthesia Preprocedure Evaluation Filed: 11/21/2023 14:08 Note Text: ANESTHESIOLOGY DAY OF SURGERY NOTE : 2000 Procedure Information Date/Time: 11/21/23 1405 Procedure: LAPAROSCOPIC CHOLECYSTECTOMY WITH GRAMS (Gallbladder) Location: OR06 / [facility] OR Surgeons: Seema Davis [...] and consent discussed: yes. Patient / Responsible Republican agrees to proceed: yes Patient / Surrogate [...] November 21, 2023 TIME: 2:08 PM CSN: [id number] [facility] BRIEF OP NOTon 11-21-2023 BRIEF OP NOT HNO ID: [id number] Author: ANA LLANES MD Service: General Surgery Author Type: Resident Type: Brief Op Note Filed: 11/21/2023 15:32 Note Text: GENERAL SURGERY BRIEF OPERATIVE NOTE Rosa Alonzo [id number] LOG ID: [id number] Surgery/Procedure Date: 11/21/2023 Incision/Procedure Start Time: 2:30 PM Incision Close/Procedure End Time: 3:23 PM Surgeon(s)/Proceduralist( s) and Mortgage Specialist(s): Surgeon(s) and Role: * Seema Davis MD [...] 21, 2023 TIME: 3:31 PM PAGER/CONTACT #: [phone] [facility] OPERATIVE NOon 11-21-2023 OPERATIVE NO HNO ID: [id number] Author: SEEMA DAVIS MD Service: General Surgery Author Type: Physician Type: Operative Report Filed: 11/23/2023 14:05 Note Text: [facility] - Operative Report ROSA ALONZO : 2000 AGE: 23. SEX: F PATIENT TYPE: A [facility]: [facility] LOCATION: [facility] ATTENDING PHYSICIAN: Seema Davis M.D. CSN NUMBER: [id number] DATE OF SURGERY/PROCEDURE: 11/21/2023 INCISION/PROCEDURE START TIME: 2:30 PM INCISION CLOSE/PROCEDURE END TIME: 3:23 PM PREOPERATIVE DIAGNOSIS: Epigastric and right upper quadrant abdominal pain. POSTOPERATIVE DIAGNOSIS: Epigastric and right upper quadrant abdominal pain. SURGEON: Seema Davis M.D. SALVAGE MECHANIC: Ana Llanes M.D. SURGERY/PROCEDURE: Laparoscopic cholecystectomy. ANESTHESIA: [...] infraumbilical site was closed with a single [id number] #0 Vicryl suture, local anesthetic was infiltrated and this was closed in layers with 3-0 Vicryl. The 5 mm sites were closed with 4-0 Monocryl. The wounds were washed and dried and Exofin glue applied. Patient was awakened and taken to Recovery in satisfactory condition. All counts were correct x2. I was present for the entire operation. Seema Davis M.D. :[id number] [facility] PT EDon 11-21-2023 PT ED HNO ID: [id number] Author: JUAN NIEVES RN Service: Nursing Author [...] (RECOMMENDATION): None Electronically Signed By: Juan Nieves [facility] PT ED HNO ID: [id number] Author: SHADIA PAINTER RN Service: ? Author [...] (RECOMMENDATION): None Electronically Signed By: Shadia Painter [facility] SURGICAL PATHOLOGYon 024 CASE REPORT [facility] Comment on above: Order Comment: Speci men Type: TISSUE SPECIMENOrdering Facility: [facility] Address: [address] [place] [address] Result Comment: Surg ica Pathology Report Case: [id number] Authorizing Provider: Seema Davis MD Collected: 11/21/2023 02:39 PM Ordering Location: [facility] Received: 11/22/2023 07:43 AM Operating Room Pathologist: Woodrow Rain MD Specimen: Gallbladder Performed By: #### S ####[facility] LABCLIA [id number] [place] [address] [place] CLINICAL HISTORY [facility] Comment on above: Order Comment: Speci men Type: TISSUE SPECIMENOrdering Facility: [facility] Address: [address] [place] [address] Result Comment: Pre- op diagnosis: Cholecystitis [K81.9] Performed By: #### S ####[facility] LABCLIA [id number] [address] FINAL DIAGNOSIS Normal [facility] Comment on above: Order Comment: Speci men Type: TISSUE SPECIMENOrdering Facility: [facility] Address: [address] [place] [address] Result Comment: A. G allbladder, cholecystectomy: -Gallbladder with no diagnostic abnormality. Performed By: #### S ####[facility] LABCLIA [id number] [address] OF [facility] FINAL PERFORMING LAB Normal [facility] Comment on above: Order Comment: Speci men Type: TISSUE SPECIMENOrdering Facility: [facility] Address: [address] [place] [address] Result Comment: Diag nostic interpretation performed at [facility], [address] [place] [address] CLIA# [id number] Shipping Specialist: Roverto Coleman M.D. Performed By: #### S ####[facility] LABCLIA [id number] [address] OF [place] GROSS DESCRIPTION A. Gallbladder Normal [facility] Comment on above: Order Comment: Speci men Type: TISSUE SPECIMENOrdering Facility: [facility] Address: [address] [place] [address] Result Comment: Rece ived in formalin designated [...] with a wall thickness of 0.1 cm. Engineering And Development Director sections are submitted in 1 cassette. WE November 22, 2023 11:51 AM Gross examination performed at [facility], [address] [place] [address] Performed By: #### S ####[facility] LABCLIA [id number] [facility] [address] [address] [place] Basophils Auto (Bld) [#/Vol] on 11-15-2023 Basophils (Bld) [#/Vol] 0.04 10*3/uL <0.11 [facility] Basophils/100 WBC Auto (Bld) on 11-15-2023 Basophils/100 WBC (Bld) 0.7 % [facility] Blood manual differential co mment interpretation narrativeon 11-15-2023 Manual differential comment Ganga (Bld) [Interp] Auto [facility] CBC W Auto Differential pane l (Bld)on 11-15-2023 Basophils (Bld) [#/Vol] 0.04 10*3/uL Normal <0.11 [facility] Comment on above: Order Comment: Speci men Type: BLOOD SPECIMEN [facility] Address: [address] [place] [address] Performed By: #### 5 7021-8 #### [facility] CLIA [id number] [address] [id number] [place] Basophils/100 WBC (Bld) 0.7 % Normal [facility] Comment on above: Order Comment: Speci men Type: BLOOD SPECIMEN [facility] Address: [address] [place] [address] Performed By: #### 5 7021-8 #### [facility] CLIA [id number] [address] [place] [address] [place] Differential cell count method Nom (Bld) Auto Normal [facility] Comment on above: Order Comment: Speci men Type: BLOOD SPECIMEN [facility] Address: [address] [place] [address] Performed By: #### 5 7021-8 #### [facility] CLIA [id number] [address] [place] [address] [place] Eosinophils (Bld) [#/Vol] 0.19 10*3/uL Normal <0.46 [facility] Comment on above: Order Comment: Speci men Type: BLOOD SPECIMEN [facility] Address: [address] [place] [address] Performed By: #### 5 7021-8 #### [facility] IA [id number] [address] [place] [address] [place] Eosinophils/100 WBC (Bld) 3.4 % Normal [facility] Comment on above: Order Comment: Speci men Type: BLOOD SPECIMEN [facility] Address: [address] [place] [address] Performed By: #### 5 7021-8 #### [facility] IA [id number] [address] [place] [address] [place] Erythrocyte distribution width (RBC) [Ratio] 11.6 % Normal 11.5-15.0 [facility] Comment on above: Order Comment: Speci men Type: BLOOD SPECIMEN [facility] Address: [address] [place] [address] Performed By: #### 5 7021-8 #### [facility] IA [id number] [address] [place] [address] [place] Hematocrit (Bld) [Volume fraction] 37.7 % Normal 36.0-46.0 [facility] Comment on above: Order Comment: Speci men Type: BLOOD SPECIMEN [facility] Address: [address] [place] [address] Performed By: #### 5 7021-8 #### [facility] IA [id number] [address] [place] [address] [place] Hemoglobin (Bld) [Mass/Vol] 12.6 g/dL Normal 11.5-15.5 [facility] Comment on above: Order Comment: Speci men Type: BLOOD SPECIMEN [facility] Address: [address] [place] [address] Performed By: #### 5 7021-8 #### [facility] IA [id number] [address] [place] [address] [place] Immature granulocytes (Bld) [#/Vol] 10*3/uL Normal <0.10 [facility] Comment on above: Order Comment: Speci men Type: BLOOD SPECIMEN [facility] Address: [address] [place] [address] Performed By: #### 5 7021-8 #### [facility] IA [id number] [address] [place] [address] [place] Immature granulocytes/100 WBC (Bld) 0.2 % Normal [facility] Comment on above: Order Comment: Speci men Type: BLOOD SPECIMEN [facility] Address: [address] [place] [address] Performed By: #### 5 7021-8 #### [facility] IA [id number] [address] [place] [address] [place] Lymphocytes (Bld) [#/Vol] 2.43 10*3/uL Normal 1.00-4.00 [facility] Comment on above: Order Comment: Speci men Type: BLOOD SPECIMEN [facility] Address: [address] [place] [address] Performed By: #### 5 7021-8 #### [facility] IA [id number] [address] [place] [address] [place] Lymphocytes/100 WBC (Bld) 43.6 % Normal [facility] Comment on above: Order Comment: Speci men Type: BLOOD SPECIMEN [facility] Address: [address] [place] [address] Performed By: #### 5 7021-8 #### [facility] IA [id number] [address] [place] [address] [place] MCH (RBC) [Entitic mass] 31.9 pg Normal 26.0-34.0 [facility] Comment on above: Order Comment: Speci men Type: BLOOD SPECIMEN [facility] Address: [address] [place] [address] Performed By: #### 5 7021-8 #### [facility] IA [id number] [address] [place] [address] [place] MCHC (RBC) [Mass/Vol] 33.4 g/dL Normal 30.5-36.0 [facility] Comment on above: Order Comment: Speci men Type: BLOOD SPECIMEN [facility] Address: [address] [place] [address] Performed By: #### 5 7021-8 #### [facility] IA [id number] [address] [place] [address] [place] MCV (RBC) [Entitic vol] 95.4 fL Normal 80.0-100.0 [facility] Comment on above: Order Comment: Speci men Type: BLOOD SPECIMEN [facility] Address: [address] [place] [address] Performed By: #### 5 7021-8 #### [facility] IA [id number] [address] [place] [address] [place] Monocytes (Bld) [#/Vol] 0.47 10*3/uL Normal <0.87 [facility] Comment on above: Order Comment: Speci men Type: BLOOD SPECIMEN [facility] Address: [address] [place] [address] Performed By: #### 5 7021-8 #### [facility] IA [id number] [address] [place] Monocytes/100 WBC (Bld) 8.4 % Normal [facility] Comment on above: Order Comment: Speci men Type: BLOOD SPECIMEN [facility] Address: [address] [place] [address] Performed By: #### 5 7021-8 #### [facility] IA [id number] [address] [place] [address] [place] Neutrophils (Bld) [#/Vol] 2.43 10*3/uL Normal 1.45-7.50 [facility] Comment on above: Order Comment: Speci men Type: BLOOD SPECIMEN [facility] Address: [address] [place] [address] Performed By: #### 5 7021-8 #### [facility] IA [id number] [address] [place] [address] [place] Neutrophils/100 WBC (Bld) 43.7 % Normal [facility] Comment on above: Order Comment: Speci men Type: BLOOD SPECIMEN [facility] Address: [address] [place] [address] Performed By: #### 5 7021-8 #### [facility] IA [id number] [address] [place] [address] [place] Nucleated RBC (Bld) [#/Vol] 10*3/uL Normal <0.01 [facility] Comment on above: Order Comment: Speci men Type: BLOOD SPECIMEN [facility] Address: [address] [place] [address] Performed By: #### 5 7021-8 #### [facility] IA [id number] [address] [place] [id number] [place] Nucleated RBC/100 WBC (Bld) [Ratio] 0.0 /100 WBC Normal [facility] Comment on above: Order Comment: Speci men Type: BLOOD SPECIMEN [facility] Address: [address] [place] [address] Performed By: #### 5 7021-8 #### [facility] IA [id number] [address] [place] [address] [place] Platelet mean volume (Bld) [Entitic vol] 10.5 fL Normal 9.0-12.7 [facility] Comment on above: Order Comment: Speci men Type: BLOOD SPECIMEN [facility] Address: [address] [place] [address] Performed By: #### 5 7021-8 #### [facility] IA [id number] [address] [place] [address] [place] Platelets (Bld) [#/Vol] 201 10*3/uL Normal 150-400 [facility] Comment on above: Order Comment: Speci men Type: BLOOD SPECIMEN [facility] Address: [address] [id number] Performed By: #### 5 7021-8 #### [facility] CLIA [id number] [address] [place] [address] [place] RBC (Bld) [#/Vol] 3.95 10*6/uL Normal 3.90-5.20 [facility] Comment on above: Order Comment: Speci men Type: BLOOD SPECIMEN [facility] Address: [address] [place] [address] Performed By: #### 5 7021-8 #### [facility] CLIA [id number] [address] [place], [place] [id number] [place] [address] [place] WBC (Bld) [#/Vol] 5.57 10*3/uL Normal 3.70-11.00 [facility] Comment on above: Order Comment: Speci men Type: BLOOD SPECIMEN [facility] Address: [address] [place] [address] Performed By: #### 5 7021-8 #### [facility] CLIA [id number] [address] [place] [address] [place] Basophils (Bld) [#/Vol] 0.04 10*3/uL [facility] Basophils/100 WBC (Bld) 0.7 % [facility] Differential cell count method Nom (Bld) Auto [facility] Eosinophils (Bld) [#/Vol] 0.19 10*3/uL [facility] Eosinophils/100 WBC (Bld) 3.4 % [facility] Erythrocyte distribution width (RBC) [Ratio] 11.6 % 11.5 - 15.0 % [facility] Hematocrit (Bld) [Volume fraction] 37.7 % 36.0 - 46.0 % [facility] Hemoglobin (Bld) [Mass/Vol] 12.6 g/dL 11.5 - 15.5 g/dL [facility] Immature granulocytes (Bld) [#/Vol] NINF [facility] Immature granulocytes/100 WBC (Bld) 0.2 % [facility] Lymphocytes (Bld) [#/Vol] 2.43 10*3/uL [facility] Lymphocytes/100 WBC (Bld) 43.6 % [facility] MCH (RBC) [Entitic mass] 31.9 pg 26.0 - 34.0 pg [facility] MCHC (RBC) [Mass/Vol] 33.4 g/dL 30.5 - 36.0 g/dL [facility] MCV (RBC) [Entitic vol] 95.4 fL 80.0 - 100.0 fL [facility] Monocytes (Bld) [#/Vol] 0.47 10*3/uL [facility] Monocytes/100 WBC (Bld) 8.4 % [facility] Neutrophils (Bld) [#/Vol] 2.43 10*3/uL [facility] Neutrophils/100 WBC (Bld) 43.7 % [facility] Nucleated RBC (Bld) [#/Vol] NINF [facility] Nucleated RBC/100 WBC (Bld) [Ratio] 0.0 % /100 WBC [facility] Platelet mean volume (Bld) [Entitic vol] 10.5 fL 9.0 - 12.7 fL [facility] Platelets (Bld) [#/Vol] 201 10*3/uL [facility] RBC (Bld) [#/Vol] 3.95 10*6/uL 3.90 - 5.2 0 m/uL [facility] WBC (Bld) [#/Vol] 5.57 10*3/uL [facility] CNPMckayla 11-15-2023 [facility] Telephone (AVPANE) ----- ROSA ALONZO ([id number]) 2000 F Date Time Provider Department 11/15/23 [...] as scheduled? Event monitor preliminary reading in inContact View Cardiac Outpatient Recording/Telemetry [ID [id number]] ECHO completed in EPIC. Of note she [...] PM Signed Faxed Cardiac Clearance form to [facility] General Surgery at [phone]. Scanned into chart. CHATO Ramirez Allergies As [...] 11-15-2023 Albumin [Mass/Vol] 4.4 g/dL Normal 3.9-4.9 [facility] Comment on above: Order Comment: Reilly medel Type: BLOOD SPECIMEN Ordering Facility: [facility] Address: [address] [place] [address] Performed By: #### 2 4323-8 #### [facility] CLIA [id number] [address] [place] [address] [place] ALP [Catalytic activity/Vol] 47 U/L Normal 34-123 [facility] Comment on above: Order Comment: Speci men Type: BLOOD SPECIMEN Ordering Facility: [facility] Address: [address] [place] [address] Performed By: #### 2 4323-8 #### [facility] CLIA [id number] [address] [place] [address] [place] ALT [Catalytic activity/Vol] 8 U/L Normal 7-38 [facility] Comment on above: Order Comment: Speci men Type: BLOOD SPECIMEN Ordering Facility: [facility] Address: [address] [place] [address] Performed By: #### 2 4323-8 #### [facility] CLIA [id number] [address] [place] [address] [place] Anion gap [Moles/Vol] 11 mmol/L Normal 9-18 [facility] Comment on above: Order Comment: Speci men Type: BLOOD SPECIMEN Ordering Facility: [facility] Address: [address] [place] [address] Performed By: #### 2 4323-8 #### [facility] IA [id number] [address] [place] [address] [place] AST [Catalytic activity/Vol] 18 U/L Normal 13-35 [facility] Comment on above: Order Comment: Speci men Type: BLOOD SPECIMEN Ordering Facility: [facility] Address: [address] [place] [address] Performed By: #### 2 4323-8 #### [facility] CLIA [id number] [address] [place] [address] [place] Bilirubin [Mass/Vol] 0.4 mg/dL Normal 0.2-1.3 [facility] Comment on above: Order Comment: Speci men Type: BLOOD SPECIMEN Ordering Facility: [facility] Address: [address] [place] [address] Performed By: #### 2 4323-8 #### [facility] CLIA [id number] [address] [place] [address] [place] Calcium [Mass/Vol] 9.6 mg/dL Normal 8.5-10.2 [facility] Comment on above: Order Comment: Speci men Type: BLOOD SPECIMEN Ordering Facility: [facility] Address: [address] [place] [address] Performed By: #### 2 4323-8 #### [facility] CLIA [id number] [address] [place] [address] [place] Chloride [Moles/Vol] 103 mmol/L Normal 97-105 [facility] Comment on above: Order Comment: Speci men Type: BLOOD SPECIMEN Ordering Facility: [facility] Address: [address] [place] [address] Performed By: #### 2 4323-8 #### [facility] CLIA [id number] [address] [place] [address] [place] CO2 [Moles/Vol] 24 mmol/L Normal 22-30 [facility] Comment on above: Order Comment: Speci men Type: BLOOD SPECIMEN Ordering Facility: [facility] Address: [address] [place] [address] Performed By: #### 2 4323-8 #### [facility] CLIA [id number] [address] [place] [address] [place] Creatinine [Mass/Vol] 0.75 mg/dL Normal 0.58-0.96 [facility] Comment on above: Order Comment: Speci men Type: BLOOD SPECIMEN Ordering Facility: [facility] Address: [address] [place] [address] Performed By: #### 2 4323-8 #### [facility] CLIA [id number] [address] [place] [address] [place] Creatinine and Glomerular filtration rate.predicted panel (S/P/Bld) 114 mL/min/1.73m??? Normal >=60 [facility] Comment on above: Order Comment: Speci men Type: BLOOD SPECIMEN Ordering Facility: [facility] Address: [address] [place] [address] Result Comment: Ny mated Glomerular Filtration Rate [...] GFR. Performed By: #### 2 4323-8 #### [facility] CLIA [id number] [address] [place] [address] [place] Glucose [Mass/Vol] 109 mg/dL High 74-99 [facility] Comment on above: Order Comment: Reilly medel Type: BLOOD SPECIMEN Ordering Facility: [facility] Address: [address] [place], [place] [address] Result Comment: The [place] Diabetes Association (ADA) provides guidance for cutoff [...] Standards of Medical Care in Diabetes 2016, [place] [employer]. Diabetes Care. 2016.39(Suppl 1). Performed By: #### 2 4323-8 #### [facility] CLIA [id number] [address] [place] [address] [place] Potassium [Moles/Vol] 4.5 mmol/L Normal 3.7-5.1 [facility] Comment on above: Order Comment: Reilly medel Type: BLOOD SPECIMEN Ordering Facility: [facility] Address: [address] [place] [address] Performed By: #### 2 4323-8 #### [facility] CLIA [id number] [address] [place] [address] [place] Protein [Mass/Vol] 6.9 g/dL Normal 6.3-8.0 [facility] Comment on above: Order Comment: Reilly medel Type: BLOOD SPECIMEN Ordering Facility: [facility] Address: [address] [place] [address] Performed By: #### 2 4323-8 #### [facility] IA [id number] [address] [place] [address] [place] Sodium [Moles/Vol] 138 mmol/L Normal 136-144 [facility] Comment on above: Order Comment: Speci men Type: BLOOD SPECIMEN Ordering Facility: [facility] Address: [address] [place] [address] Performed By: #### 2 4323-8 #### [facility] CLIA [id number] [address] [place] [address] [place] Urea nitrogen [Mass/Vol] 16 mg/dL Normal 7-21 [facility] Comment on above: Order Comment: Speci men Type: BLOOD SPECIMEN Ordering Facility: [facility] Address: [address] [place] [address] Performed By: #### 2 4323-8 #### [facility] CLIA [id number] [address] [place] [address] [place] Albumin [Mass/Vol] 4.4 g/dL 3.9 - 4.9 g/dL [facility] ALP [Catalytic activity/Vol] 47 U/L 34 - 123 U/L [facility] ALT [Catalytic activity/Vol] 8 U/L 7 - 38 U/L [facility] Anion gap [Moles/Vol] 11 mmol/L 9 - 18 mmol/L [facility] AST [Catalytic activity/Vol] 18 U/L 13 - 35 U/L [facility] Bilirubin [Mass/Vol] 0.4 mg/dL 0.2 - 1 .3 mg/dL [facility] Calcium [Mass/Vol] 9.6 mg/dL 8.5 - 10. 2 mg/dL [facility] Chloride [Moles/Vol] 103 mmol/L 97 - 10 5 mmol/L [facility] CO2 [Moles/Vol] 24 mmol/L 22 - 30 mmol/L [facility] Creatinine [Mass/Vol] 0.75 mg/dL 0.58 - 0.96 mg/dL [facility] GFR/1.73 sq M.predicted among non-blacks MDRD (S/P/Bld) [Vol rate/Area] 114 mL/min/{1.73_m2} - PINF [facility] Comment on above: Estimated Glomerular Filtration [...] 109 mg/dL High 74 - 99 mg/dL [facility] Comment on above: The [place] Diabete s Association (ADA) provides guidance for [...] Standards of Medical Care in Diabetes 2016, [place] [employer]. Diabetes Care. 2016.39(Suppl 1). Interpretation and review of laboratory results Abnormal [facility] Potassium [Moles/Vol] 4.5 mmol/L 3.7 - 5.1 mmol/L [facility] Protein [Mass/Vol] 6.9 g/dL 6.3 - 8.0 g/dL [facility] Sodium [Moles/Vol] 138 mmol/L 136 - 144 mmol/L [facility] Urea nitrogen [Mass/Vol] 16 mg/dL 7 - 21 mg/dL [facility] Eosinophils/100 WBC Auto (Bl d)on 11-15-2023 Eosinophils/100 WBC (Bld) 3.4 % [facility] Erythrocyte distribution wid th Auto (RBC) [Ratio]on 11-15-2023 Erythrocyte distribution width (RBC) [Ratio] 11.6 % 11.5-15.0 [facility] HISTORY PHYSICALon HISTORY PHYSICAL HNO ID: [id number] Author: VIKTORIA CAUSEY PA-C Service: ? Author Type: Physician Mortgage Specialist Type: H&P Filed: 11/16/2023 07:41 Note Text: [...] SOB. Pulse today 75, regular rhythm today [id number] 0 Ejection Fraction - Result: 63 % [...] Hematocrit (Bld) [Volume fraction] 37.7 % 36.0-46.0 [facility] Hemoglobin [Mass/volume] in Bloodon 11-15-2023 Hemoglobin (Bld) [Mass/Vol] 12.6 g/dL 11.5-15.5 [facility] Laboratory - Chemistry and C hemistry - challengeon 11-15-2023 Albumin [Mass/Vol] 4.4 g/dL 3.9-4.9 [facility] ALP [Catalytic activity/Vol] 47 U/L 34-123 [facility] ALT [Catalytic activity/Vol] 8 U/L 7-38 [facility] AST [Catalytic activity/Vol] 18 U/L 13-35 [facility] Bilirubin [Mass/Vol] 0.4 mg/dL 0.2-1.[address] [facility] Calcium [Mass/Vol] 9.6 mg/dL 8.5-10.2 [facility] Chloride [Moles/Vol] 103 mmol/L 97-[address] [facility] CO2 [Moles/Vol] 24 mmol/L 22-30 [facility] Creatinine [Mass/Vol] 0.75 mg/dL 0.58-0.96 [facility] Glucose [Mass/Vol] 109 mg/dL 74-99 [facility] Comment on above: The [place] Diabete s Association (ADA) provides guidance for [...] Standards of Medical Care in Diabetes 2016, [place] Diabetes [employer]. Diabetes Care. 2016.39(Suppl 1). Potassium [Moles/Vol] 4.5 mmol/L 3.7-5.1 [facility] Sodium [Moles/Vol] 138 mmol/L 136-144 [facility] Urea nitrogen [Mass/Vol] 16 mg/dL 7-21 [facility] Laboratory - Hematology and Cell countson 11-15-2023 Eosinophils (Bld) [#/Vol] 0.19 10*3/uL <0.46 [facility] Immature granulocytes/100 WBC (Bld) 0.2 % [facility] Leukocytes [#/volume] correc shena for nucleated erythrocytes in Blood by Automated counon 11-15-2023 WBC corrected for nucl RBC Auto (Bld) [#/Vol] 5.57 k/uL 3.70-11.00 [facility] Lymphocytes Auto (Bld) [#/Vo l]on 11-15-2023 Lymphocytes (Bld) [#/Vol] 2.43 10*3/uL 1.00-4.00 [facility] Lymphocytes/100 WBC Auto (Bl d)on 11-15-2023 Lymphocytes/100 WBC (Bld) 43.6 % [facility] MCH Auto (RBC) [Entitic mass ]on 11-15-2023 MCH (RBC) [Entitic mass] 31.9 pg 26.0-34.0 [facility] MCHC Auto (RBC) [Mass/Vol]on 11-15-2023 MCHC (RBC) [Mass/Vol] 33.4 g/dL 30.5-36.0 [facility] MCV Auto (RBC) [Entitic vol] on 11-15-2023 MCV (RBC) [Entitic vol] 95.4 fL 80.0-100.0 [facility] Monocytes Auto (Bld) [#/Vol] on 11-15-2023 Monocytes (Bld) [#/Vol] 0.47 10*3/uL <0.87 [facility] Monocytes/100 WBC Auto (Bld) on 11-15-2023 Monocytes/100 WBC (Bld) 8.4 % [facility] Neutrophils Auto (Bld) [#/Vo l]on 11-15-2023 Neutrophils (Bld) [#/Vol] 2.43 10*3/uL 1.45-7.50 [facility] Neutrophils/100 WBC Auto (Bl d)on 11-15-2023 Neutrophils/100 WBC (Bld) 43.7 % [facility] No Panel Informationon 11-14 Estimated GFR (CKD-EPI) 114 mL/min/1.73m??? >=60 [facility] Comment on above: Estimated Glomerular Filtration [...] Immature Granulocyte # (Auto) <0.03 k/uL <0.10 [facility] Nucleated RBC Auto (Bld) [#/ Vol]on 11-15-2023 Nucleated RBC (Bld) [#/Vol] 10*3/uL <0.01 [facility] Nucleated erythrocytes [Pres ence] in Blood by Automated counton 11-15-2023 Nucleated RBC Auto Ql (Bld) 0.0 /100{WBC} [facility] Platelet mean volume Auto (B ld) [Entitic vol]on 11-15-2023 Platelet mean volume (Bld) [Entitic vol] 10.5 fL 9.0-12.7 [facility] Platelets Auto (Bld) [#/Vol] on 11-15-2023 Platelets (Bld) [#/Vol] 201 10*3/uL 150-400 [facility] Protein [Mass/volume] in Ser um or Plasmaon 11-15-2023 Protein [Mass/Vol] 6.9 g/dL 6.3-8.0 [facility] RBC Auto (Bld) [#/Vol]on RBC (Bld) [#/Vol] 3.95 10*6/uL 3.90-5.20 [facility] Serum or plasma anion gap de terminationon 11-15-2023 Anion gap [Moles/Vol] 11 mmol/L 9-18 [facility] ECHOon 11-07-2023 Echocardiography Echocardiography Rep ort: Transthoracic Echo [facility] Date of service: 11/07/2023 1:59:20 PM SUPERVISOR Ordering physician: SEDRICK RUSHING Indication: Abnormal ECG [...] * * Final * * * CC [employer] Image : [id number] [facility] ROSA ALONZO Roland ([id number]) 2000 F Date Time Provider Department 11/05/23 [...] Fully Assessed Reason for Visit: Patient Question [6409] Cmt: PVCs and Frequent ED visits. Prescriptions [...] Encounter Status:Closed by SEDRICK RUSHING on 11/05/[address] [facility] Christine 10-30-2023 CNPN Telephone (CARDAV) ----- ROSA ALONZO ([id number]) 2000 F Date Time Provider Department 4/9/24 SEDRICK RUSHING During your visit today, we recorded the following information about you: Juanis Cabello, RN 10/30/2023 11:14 AM Signed The pt is calling. Please review the my chart message from today for an EKG attachment she sent from her ED visit last night. She went to the [facility]. Are you able to revue her [...] ongoing symptoms Staying hydrated Concerned Call CELL [phone] Leave Detailed messages Chichi Monroy, VIRGILIO 11/01/2023 [...] Status:Closed by CHICHI MONROY on 11/01/[address] [facility] Christine 10-23-2023 [facility] Telephone (CARDAV) ----- ROSA ALONZO ([id number]) 2000 F Date Time Provider Department 10/23/23 SEDRICK RUSHING During your visit today, we recorded the following information about you: Wilfredo Avila OCCA 10/23/2023 1:53 PM Signed Received form requesting cardiac evaluation for surgical clearance from [facility] Surgery with Dr. Seema Davis. Surgery Date: 11-21-2023 Fax to [facility] Surgery: [phone] Rushing to review. Wilfredo Avila CHATO Wilfredo Avila OCCA 12/07/2023 4:[address] Rushing filled out Cardiac Clearance Form. Faxed to [facility] at [phone]. Scanned into chart. CHATO Ramirez Allergies As [...] Status:Closed by WILFREDO AVILA on 10/23/23 Normal [facility] Telephone ([facility]) ----- ROSA ALONZO ([id number]) 2000 F Date Time Provider Department 10/23/[address] [facility] During your visit today, we recorded the following information about you: Daxa Gray, RN 10/23/2023 1:[address] Sedrick Rushing's office for cardiac clearance at [phone]. Abnormal heart sounds with gallbladder consult on [...] Fully Assessed Reason for Visit: Cardiac Clearance [0265] Prescriptions as of 10/23/2023 - dicyclomine (BENTYL) [...] Status:Closed by DAXA GRAY on 10/23/[address] [facility] CNOVon 10-22-2023 CNOV Office Visit (CARINF ) ----- ROSA ALONZO ([id number]) 2000 F Date Time Provider Department 10/22/23 3:00 PM SEDRICK RUSHING CARINF During your visit today, we recorded the following information about you: Pulse Blood pressure Weight Height 40/minute 102/62 52.6 kg 1.626 m Sedrick Rushing MD 10/22/2023 3:17 PM [facility] [place] Iram Pathak Department of Cardiovascular Medicine SECTION OF REGIONAL CARDIOLOGY OUTPATIENT VISIT DATE October 21, 2023 OUTPATIENT VISIT TYPE NEW CONSULTATION PRIMARY CARE PHYSICIAN: Analia Holliday [address] [place] [address] [place] [address] CHIEF COMPLAINT: Palpitations HISTORY OF PRESENT ILLNESS: [...] Shortness of Breath, Unknown, Vomiting CURRENT MEDICATIONS: etsbgj-uaegsprh-ovygdyv (CREON) 24,000-76,000 -120,000 unit delayed release capsule [...] on File Prior to Visit Medication Sig nvcuip-zppxbqev-kyqjcls (CREON) 24,000-76,000 -120,000 unit delayed release capsule [...] Sedrick Rushing MD Cardiovascular Medicine Staff [facility] [address] [place] [address] Azael Larson LPN 10/22/2023 3:33 PM Signed EVENT MONITOR DISPOSABLE PATCH INSTRUCTIONS Patient Name: Rosa Alonzo Clinic Number: [id number] Skin prepped and cleansed with alcohol Patch secured to prepped area Monitor Activated Serial #: [id number] Patient Instructed: Prescribed order timeframe Bathing guidelines Usage of event button and diary documentation Return of monitor at the end of prescribed order Call with problems [phone] or [phone]. [phone] (more content not included)... Normal [facility] CNOVon 10-19-2023 CNOV Office Visit [facility] ----- CLINTONROSA Newberry Roland ([id number]) 2000 F Date Time Provider Department 10/19/23 2:20 PM SEEMA DAVIS [facility] During your visit today, we recorded the following information about you: Temperature Pulse Blood pressure Weight 98.2 degrees 76/minute 109/68 52.9 kg Height Last Period 1.646 m 10/18/23 Seema Davis MD 10/21/2023 9:18 PM Signed CC: RUQ pain HPI: This is a 22 year old female referred by Dr Mneon for above; recommendations will be communicated via shared medical record or US Mail. Starting in 2020, she began having GI symptoms including nausea, [...] Take 4 mg by mouth as needed. 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 Lives with her . [...] the date of the service which included agbs-kw-tvhi patient care, completing clinical documentation, obtaining and/or [...] within normal limits Referring Provider: SEEMA DAVIS [[id number]] Allergies As of Date: 10/19/2023 Noted Allergy Reaction METRONIDAZOLE 09/07/2020 1 - Mental Status Change 6 - Diarrhea 8 - GI Upset 4 - Hives 14 - Other: See Comments 2 - Rash 12 - Shortness of Breath 16 - Unknown 11 - Vomiting Date Reviewed: 10/19/2023 (more content not included)... Normal [facility] ECG COMPLETEon 10-19-2023 ECG COMPLETE Ventricular Rate : 6 7 BPM Atrial Rate : 67 BPM P-R Interval : 160 ms QRS Duration : 94 ms Q-T Interval : 402 ms QTC Calculation(Bazett) : 424 ms Calculated P [place] : 76 degrees Calculated R [place] : 37 degrees Calculated T [place] : 57 degrees NORMAL SINUS RHYTHM WITH SINUS ARRHYTHMIA POSSIBLE LEFT ATRIAL ENLARGEMENT RSR' PATTERN IN V1 SUGGESTS INCOMPLETE RIGHT BUNDLE BRANCH BLOCK BORDERLINE ECG NO PREVIOUS ECGS AVAILABLE Confirmed by JENNIFER SURESH MD ([id number]) on 10/22/2023 1:00:28 PM NAME : ROSA ALONZO PID : [id number] : 2000 Gender : Female Race : ORD : [id number] Procedure Date : Oct 19 2023 14:37:15 Edit Date : Oct 22 2023 13:00:33 Diagnosis: NORMAL SINUS RHYTHM WITH SINUS ARRHYTHMIA POSSIBLE LEFT ATRIAL ENLARGEMENT RSR' PATTERN IN V1 SUGGESTS INCOMPLETE RIGHT BUNDLE BRANCH BLOCK BORDERLINE ECG NO PREVIOUS ECGS AVAILABLE Confirmed by JENNIFER SURESH MD ([id number]) on 10/22/2023 1:00:28 PM Test Reason : SVT Location : [facility] : [facility] Overread By : JENNIFER SURESH MD Edited By : JENNIFER SURESH MD Referred By : SEEMA DAVIS Acquired by : [id number], Normal [facility] 09-11-2023 CNPN Telephone (GASTNO) ----- ROSA ALONZO Roland ([id number]) 2000 F Date Time Provider Department 09/11/23 [...] 09/11/2023 4:25 PM Signed Please refer to [facility] dated 09/11/2023. Gisela Ponce RN Allergies As [...] Update [1234] Prescriptions as of 09/11/2023 - qjymdh-qcdnvcsa-mohcboe (CREON) 24,000-76,000 -120,000 unit delayed release capsule [...] Encounter Status:Closed by GISELA PONCE on 09/11/23 [facility] ANES POSTPROC EVALon 024 ANES POSTPROC EVAL HNO ID: [id number] Author: CIPRIANO PIMENTEL MD Service: Anesthesiology Author Type: Anesthesiologist Type: Anesthesia Postprocedure Evaluation Filed: 09/06/2023 13:55 Note Text: POST ANESTHESIA EVALUATION NOTE : 2000 Procedure Summary Date: 09/06/23 Room / Location: [facility] Endoscopy - ENDO Anesthesia Start: 1244 Anesthesia Stop: 1327 Procedure: EGD - THERAPEUTIC, EUS, OR TUBE INTERVENTIONS Diagnosis: Chronic recurrent pancreatitis (HCC) Scheduled Providers: Isabelle Menon MD; Cipriano Pimentel MD; Elif Hess APRN.HEALTHCARE APPLICATIONS ANALYST Responsible Provider: Cipriano Pimentel MD Anesthesia Type: [...] September 06, 2023 TIME: 1:55 PM CSN: [id number] Normal [facility] ANES PRE-OPon 09-06-2023 ANES PRE-OP HNO ID: [id number] Author: CIPRIANO PIMENTEL MD Service: Anesthesiology Author Type: Anesthesiologist Type: Anesthesia Preprocedure Evaluation Filed: 09/06/2023 10:56 Note Text: ANESTHESIOLOGY DAY OF SURGERY NOTE : 2000 Procedure Information Date/Time: 09/06/23 1130 Scheduled providers: Isabelle Menon MD; Cipriano Pimentel MD; Elif Hess APRN.HEALTHCARE APPLICATIONS ANALYST Procedure: EGD - THERAPEUTIC, EUS, OR TUBE INTERVENTIONS Location: [facility] Endoscopy - ENDO Estimated body mass [...] and consent discussed: yes. Patient / Responsible Republican agrees to proceed: yes Patient / Surrogate [...] 10 mg by mouth once daily. - depwwb-bhpgzsej-djoropi (CREON) 24,000-76,000 -120,000 unit delayed release capsule [...] September 06, 2023 TIME: 10:54 AM CSN: [id number] [facility] 09-06-2023 CNPN Telephone (FVPRAD) ----- ROSA ALONZO ([id number]) 2000 F Date Time Provider Department 09/06/23 [...] Date Reviewed: 09/06/2023 Reviewed by: Mckenzie Segura, RN - Fully Assessed Prescriptions as of 09/06/2023 - ezpqub-kpsfkblv-jrtfqnl (CREON) 24,000-76,000 -120,000 unit delayed release capsule [...] Encounter Status:Closed by ISABELLE MENON on 09/06/23 [facility] EGD Study observation Narrat iveon 09-06-2023 [facility] HISTORY PHYSICALon HISTORY PHYSICAL HNO ID: [id number] Author: ISABELLE MENON MD Service: Gastroenterology Author [...] mouth once daily. 09/05/2023 at 1000 Yes wnhxqj-ojzpmgvp-lllwekt (CREON) 24,000-76,000 -120,000 unit delayed release capsule [...] DATE: September 06, 2023 TIME: 12:20 PM [facility] NURSING PROGon 09-06-2023 NURSING PROG HNO ID: [id number] Author: RICKIE GU RN Service: Nursing Author [...] Endo in satisfactory condition Rickie Gu RN [facility] NURSING PROG HNO ID: [id number] Author: RICKIE GU RN Service: Nursing Author [...] (RECOMMENDATION): None Electronically Signed By: Rickie Gu [facility] Upper EUSon 09-06-2023 Upper EUS [facility] Gastrointestinal Endoscopy Patient Name: Rosa Alonzo Procedure Date: 09/06/2023 12:16 PM Date of : 2000 Admit Type: Outpatient Age: 22 Room: [place] [address] Gender: Female Note Status: Finalized Attending MD: Isabelle Menon MD, [id number] Procedure: Upper EUS Indications: Abnormal abdominal/pelvic CT scan, Acute pancreatitis, 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 Chronic RUQ pain radiating to the back. RUQ US and HIDA scan with CCK normal. Pancreatitis age 14 of unclear aetiology. Providers: Isabelle Menon MD, Gwen Ornelas, RN, Chrissie Fobres, VIRGILIO, Felix Vick, VIRGILIO (Assisting Nurse) Patient Profile: This is a [...] for cholecystectomy. 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 All rights reserved. The codes documented in this report are preliminary and upon embedded linux engineer review may be revised to meet current compliance requirements. Attending Participation: I personally performed the entire procedure. Scope In: 12:53:03 PM Scope Out: 1:22:36 PM MD Isabelle Cedeno MD 09/06/2023 3:29:47 PM This report has been signed electronically by Isabelle Menon MD Number of Addenda: 0 Note Initiated On: 09/06/2023 12:16 PM Estimated Blood Loss: Estimated blood loss: none. Normal [facility] CNCOon 07-30-2023 CNCO Letter Text Normal [facility] CNPNon 07-13-2023 CNPN Telephone (GASTNO) ----- ROSA ALONZO ([id number]) 2000 F Date Time Provider Department 07/13/23 [...] decision on EGD AND colonoscopy after EUS. Isabelle Menon MD [place], [place] 07/20/2023 12:15 PM Signed Voicemail received from patient. Calling to schedule her EUS. Please call her at [phone]. Anabel Aguilar II 07/30/2023 11:20 AM Signed [...] Vomiting Date Reviewed: 07/05/2023 Reviewed by: Mckenzie Ball, RT(R) - Fully Assessed Reason for Visit: Follow Up Tests Results [770] Cmt: CTA--->needs EUS Appointment [186] Cmt: EUS Primary Visit Diagnosis:Chronic recurrent pancreatitis (HCC) [K86.1] Order(s):EGD - THERAPEUTIC, EUS, OR TUBE INTERVENTIONS [GI2] Order #: [id number] FUTURE Prescriptions as of 07/30/2023 - mtlgqx-ccoorxrg-dnhaltl (CREON) 24,000-76,000 -120,000 unit delayed release capsule [...] by ANABEL AGUILAR II on 07/30/[address] [facility] Alanine aminotransferase [En zymatic activity/volume] in Serum or PlasmaOrdered By: Analia Holliday on 05-30-2023 ALT [Catalytic activity/Vol] 10 U/L Normal 7-52 [facility] Comment on above: Order Comment: Reaso n for Exam Well adult exam Performed By: #### V [id number], TSH3, CMP wRFX A1C, LIPID, CBC, FE PRO, [id number] #### [facility] [address] Albumin [Mass/volume] in Ser um or Plasma by Bromocresol green (BCG) dye binding methoOrdered By: Analia Holliday on 05-30-2023 Albumin BCG dye [Mass/Vol] 4.6 g/dL 3.5-5.7 [facility] Alkaline phosphatase [Enzyma tic activity/volume] in Serum or PlasmaOrdered By: Analia Holliday on 05-30-2023 ALP [Catalytic activity/Vol] 44 U/L Normal 34-104 [facility] Comment on above: Order Comment: Reaso n for Exam Well adult exam Performed By: #### V [id number], TSH3, CMP wRFX A1C, LIPID, CBC, FE PRO, [id number] #### [facility] [address] [place] [address] Aspartate aminotransferase [ Enzymatic activity/volume] in Serum or PlasmaOrdered By: Analia Holliday on 05-30-2023 AST [Catalytic activity/Vol] 16 U/L Normal 13-39 [facility] Comment on above: Order Comment: Reaso n for Exam Well adult exam Performed By: #### V [id number], TSH3, CMP wRFX A1C, LIPID, CBC, FE PRO, [id number] #### [facility] [address] [place] [address] Automated basophil %Ordered By: Analia Holliday on 05-30-2023 Basophils/100 WBC (Bld) 0.8 % Normal . [facility] Comment on above: Order Comment: Reaso n for Exam Well adult exam Performed By: #### V [id number], TSH3, CMP wRFX A1C, LIPID, CBC, FE PRO, [id number] #### [address] Automated basophil countOrde red By: Analia Holliday on 05-30-2023 Basophils (Bld) [#/Vol] 0.0 10*3/uL Normal 0.0-0.2 [facility] Comment on above: Order Comment: Reaso n for Exam Well adult exam Result Comment: PERF ORMED BY: [place] [address] PATHOLOGIST OPERATIONS REPRESENTATIVE RY BUTTERFIELD M.D. Performed By: #### V [id number], TSH3, CMP wRFX A1C, LIPID, CBC, FE PRO, [id number] #### [address] Automated blood monocyte cou ntOrdered By: Analia Holliday on 05-30-2023 Monocytes (Bld) [#/Vol] 0.5 10*3/uL Normal 0.0-0.8 [facility] Comment on above: Order Comment: Reaso n for Exam Well adult exam Performed By: #### V [id number], TSH3, CMP wRFX A1C, LIPID, CBC, FE PRO, [id number] #### [facility] [address] [place] [address] Automated eosinophil %Ordere d By: Analia Holliday on 05-30-2023 Eosinophils/100 WBC (Bld) 3.8 % Normal . [facility] Comment on above: Order Comment: Reaso n for Exam Well adult exam Performed By: #### V [id number], TSH3, CMP wRFX A1C, LIPID, CBC, FE PRO, [id number] #### [facility] [address] [place] [address] Automated eosinophil countOr dered By: Analia Holliday on 05-30-2023 Eosinophils (Bld) [#/Vol] 0.2 10*3/uL Normal 0.0-0.45 [facility] Comment on above: Order Comment: Reaso n for Exam Well adult exam Performed By: #### V [id number], TSH3, CMP wRFX A1C, LIPID, CBC, FE PRO, [id number] #### [address] Automated monocyte %Ordered By: Analia Holliday on 05-30-2023 Monocytes/100 WBC (Bld) 9.5 % Normal . [facility] Comment on above: Order Comment: Reaso n for Exam Well adult exam Performed By: #### V [id number], TSH3, CMP wRFX A1C, LIPID, CBC, FE PRO, [id number] #### [facility] [address] Automated neutrophil %Ordere d By: Analia Holliday on 05-30-2023 Neutrophils/100 WBC (Bld) 46.6 % Normal . [facility] Comment on above: Order Comment: Reaso n for Exam Well adult exam Performed By: #### V [id number], TSH3, CMP wRFX A1C, LIPID, CBC, FE PRO, [id number] #### [facility] [address] [place] [address] Bilirubin.total [Mass/volume ] in Serum or PlasmaOrdered By: Analia Holliday on 05-30-2023 Bilirubin [Mass/Vol] 0.6 mg/dL Normal 0.3-1.[address] [facility] Comment on above: Order Comment: Reaso n for Exam Well adult exam Performed By: #### V [id number], TSH3, CMP wRFX A1C, LIPID, CBC, FE PRO, [id number] #### [facility] [address] [place] [address] CMP with reflex to A1Con Albumin [Mass/Vol] 4.6 g/dL Normal 3.5-5.7 [facility] Comment on above: Order Comment: Reaso n for Exam Well adult exam Performed By: #### V [id number], TSH3, CMP wRFX A1C, LIPID, CBC, FE PRO, [id number] #### [facility] [address] GFR/1.73 sq M.predicted MDRD (S/P/Bld) [Vol rate/Area] mL/min/{1.73_m2} Normal [facility] Comment on above: Order Comment: Reaso n for Exam Well adult exam Performed By: #### V [id number], TSH3, CMP wRFX A1C, LIPID, CBC, FE PRO, [id number] #### [facility] [address] [place] [address] [place] Calcium [Mass/volume] in Ser um or PlasmaOrdered By: Analia Holliday on 05-30-2023 Calcium [Mass/Vol] 9.5 mg/dL Normal 8.6-10.3 [facility] Comment on above: Order Comment: Reaso n for Exam Well adult exam Performed By: #### V [id number], TSH3, CMP wRFX A1C, LIPID, CBC, FE PRO, [id number] #### [facility] [address] [place] [address] [place] Carbon dioxide, total [Moles /volume] in Serum or PlasmaOrdered By: Analia Holliday on 05-30-2023 CO2 [Moles/Vol] 27.5 mmol/L Normal 21.0-31.0 [place] Comment on above: Order Comment: Reaso n for Exam Well adult exam Performed By: #### V [id number], TSH3, CMP wRFX A1C, LIPID, CBC, FE PRO, [id number] #### [facility] [address] [place] [address] [place] Chloride [Moles/volume] in S leobardo or PlasmaOrdered By: Analia Holliday on 05-30-2023 Chloride [Moles/Vol] 106 mmol/L Normal 98-[address] [facility] Comment on above: Order Comment: Reaso n for Exam Well adult exam Performed By: #### V [id number], TSH3, CMP wRFX A1C, LIPID, CBC, FE PRO, [id number] #### [facility] [address] [place] [address] [place] Cholesterol [Mass/volume] in Serum or PlasmaOrdered By: Analia Holliday on 05-30-2023 Cholesterol [Mass/Vol] 169 mg/dL Normal 140-200 [facility] Comment on above: Chol less than 200 m g/dl low riskChol 201-239 mg/dl borderline riskChol 240 mg/dl and greater high risk Order Comment: Reaso n for Exam Well adult exam Result Comment: Chol less than 200 mg/dl low risk Chol 201-239 mg/dl borderline risk Chol 240 mg/dl and greater high risk Performed By: #### V [id number], TSH3, CMP wRFX A1C, LIPID, CBC, FE PRO, [id number] #### [facility] [address] [place] [id number] [place] Cholesterol in LDL Calc [Mas s/Vol]Ordered By: Analia Holliday on 05-30-2023 Cholesterol in LDL [Mass/Vol] 100 mg/dL 0-100 [facility] Comment on above: LDL ATP III CLASSIFI CATIONLDL less than 100 mg/dL OptimalLDL 100-129 mg/dL Near or above optimalLDL 130-159 mg/dL Borderline highLDL 160-189 mg/dL HighLDL greater than 189 mg/dL Very high Cholesterol in VLDL Calc [Ma ss/Vol]Ordered By: Analia Holliday on 05-30-2023 Cholesterol in VLDL [Mass/Vol] 8 mg/dL [facility] Complete Blood Count Auto Di ffon 05-30-2023 Mean Corpuscular HGB Conc 34.1 g/dL Normal 32.0-35.0 [facility] Comment on above: Order Comment: Reaso n for Exam Well adult exam Performed By: #### V [id number], TSH3, CMP wRFX A1C, LIPID, CBC, FE PRO, [id number] #### [facility] [address] [place] [id number] [facility] NRBC% 0.1 /100{WBC} Normal 0-0.5 [facility] Comment on above: Order Comment: Reaso n for Exam Well adult exam Performed By: #### V [id number], TSH3, CMP wRFX A1C, LIPID, CBC, FE PRO, [id number] #### [facility] [address] [place] [id number] [place] Creatinine [Mass/volume] in Serum or PlasmaOrdered By: Analia Holliday on 05-30-2023 Creatinine [Mass/Vol] 0.66 mg/dL Normal 0.60-1.20 [facility] Comment on above: Order Comment: Reaso n for Exam Well adult exam Performed By: #### V [id number], TSH3, CMP wRFX A1C, LIPID, CBC, FE PRO, [id number] #### [facility] [address] [place] [id number] [facility] Erythrocyte distribution wid th [Ratio] by Automated countOrdered By: Analia Holliday on 05-30-2023 Erythrocyte distribution width (RBC) [Ratio] 12.3 % Normal 11.9-15.3 [facility] Comment on above: Order Comment: Reaso n for Exam Well adult exam Performed By: #### V [id number], TSH3, CMP wRFX A1C, LIPID, CBC, FE PRO, [id number] #### [facility] [address] [place] [id number] [facility] Erythrocytes [#/volume] in B lood by Automated countOrdered By: Analia Holliday on 05-30-2023 RBC (Bld) [#/Vol] 4.30 10*6/uL Normal 3.60-5.00 [facility] Comment on above: Order Comment: Reaso n for Exam Well adult exam Performed By: #### V [id number], TSH3, CMP wRFX A1C, LIPID, CBC, FE PRO, [id number] #### [facility] [address] [place] [id number] [place] FE PROon 05-30-2023 % Iron Saturation 33.2 % Normal 20-50 [facility] Comment on above: Order Comment: Reaso n for Exam Well adult exam Performed By: #### V [id number], TSH3, CMP wRFX A1C, LIPID, CBC, FE PRO, [id number] #### [facility] [address] [place] [id number] [facility] Total Iron Binding Capacity 349 ug/dL Normal 255-450 [facility] Comment on above: Order Comment: Reaso n for Exam Well adult exam Performed By: #### V [id number], TSH3, CMP wRFX A1C, LIPID, CBC, FE PRO, [id number] #### [facility] [address] [place] [id number] [place] Ferritin [Mass/volume] in Se rum or PlasmaOrdered By: Analia Holliday on 05-30-2023 Ferritin [Mass/Vol] 38.7 ng/mL Normal 11.0-306.8 [facility] Comment on above: Order Comment: Reaso n for Exam Well adult exam Performed By: #### V [id number], TSH3, CMP wRFX A1C, LIPID, CBC, FE PRO, [id number] #### [facility] [address] Folate [Mass/volume] in Seru m or PlasmaOrdered By: Analia Holliday on 05-30-2023 Folate [Mass/Vol] 23.0 ng/mL >5.[address] [facility] Comment on above: Folate reference ran ge: >5.9 ng/mlThe WHO technical consultation on folate and vitamin [id number] has determined that folate concentrations lessthan 4 ng/ml are considered deficient. Glucose [Mass/volume] in Ser um or PlasmaOrdered By: Analia Holliday on 05-30-2023 Glucose [Mass/Vol] 89 mg/dL Normal 70-100 [facility] Comment on above: Order Comment: Reaso n for Exam Well adult exam Performed By: #### V [id number], TSH3, CMP wRFX A1C, LIPID, CBC, FE PRO, [id number] #### [facility] [address] Hematocrit [Volume Fraction] of Blood by Automated countOrdered By: Analia Holliday on 05-30-2023 Hematocrit (Bld) [Volume fraction] 39.8 % Normal 34.0-46.4 [facility] Comment on above: Order Comment: Reaso n for Exam Well adult exam Performed By: #### V [id number], TSH3, CMP wRFX A1C, LIPID, CBC, FE PRO, [id number] #### [facility] [address] Hemoglobin [Mass/volume] in BloodOrdered By: Analia Holliday on 05-30-2023 Hemoglobin (Bld) [Mass/Vol] 13.6 g/dL Normal 11.8-15.4 [facility] Comment on above: Order Comment: Reaso n for Exam Well adult exam Performed By: #### V [id number], TSH3, CMP wRFX A1C, LIPID, CBC, FE PRO, [id number] #### [facility] [address] Iron [Mass/volume] in Serum or PlasmaOrdered By: Analia Holliday on 05-30-2023 Iron [Mass/Vol] 116 ug/dL Normal 50-212 [facility] Comment on above: Order Comment: Reaso n for Exam Well adult exam Performed By: #### V [id number], TSH3, CMP wRFX A1C, LIPID, CBC, FE PRO, [id number] #### [facility] [address] Iron binding capacity [Mass/ volume] in Serum or PlasmaOrdered By: Analia Holliday on 05-30-2023 Iron binding capacity [Mass/Vol] 349 ug/dL 255-450 [facility] Iron saturation [Mass Fracti on] in Serum or PlasmaOrdered By: Analia Holliday on 05-30-2023 Iron saturation [Mass fraction] 33.2 % 20-50 [facility] Leukocytes [#/volume] correc shena for nucleated erythrocytes in Blood by Automated counOrdered By: Analia Holliday on 05-30-2023 WBC corrected for nucl RBC Auto (Bld) [#/Vol] 5.0 10*3/uL 3.8-11.6 [facility] Leukocytes [#/volume] in Blo od by Automated countOrdered By: Analia Holliday on 05-30-2023 WBC (Bld) [#/Vol] 5.0 10*3/uL Normal 3.8-11.6 [facility] Comment on above: Order Comment: Reaso n for Exam Well adult exam Performed By: #### V [id number], TSH3, CMP wRFX A1C, LIPID, CBC, FE PRO, [id number] #### [facility] [address] [place] [id number] [facility] Lipid Panelon 05-30-2023 LDL Cholesterol,Calculate d 100 mg/dL Normal 0-100 [facility] Comment on above: Order Comment: Reaso n for Exam Well adult exam Result Comment: LDL ATP III CLASSIFICATION LDL less than 100 mg/dL Optimal LDL 100-129 mg/dL Near or above optimal LDL 130-159 mg/dL Borderline high LDL 160-189 mg/dL High LDL greater than 189 mg/dL Very high Performed By: #### V [id number], TSH3, CMP wRFX A1C, LIPID, CBC, FE PRO, [id number] #### [facility] [address] Triglyceride w/Reflex 42 mg/dL Normal 0-149 [facility] Comment on above: Order Comment: Reaso n for Exam Well adult exam Result Comment: TRIG ATP III CLASSIFICATION TRIG less than 150 mg/dL Normal TRIG 150-199 mg/dL Borderline high TRIG 200-500 mg/dL High TRIG greater than 500 mg/dL Very high Standard traceable to the Center for Disease Conrtrol and Prevention (CDC) test method. Performed By: #### V [id number], TSH3, CMP wRFX A1C, LIPID, CBC, FE PRO, [id number] #### [facility] [address] VLDL CHOLESTEROL 8 mg/dL Normal [facility] Comment on above: Order Comment: Reaso n for Exam Well adult exam Performed By: #### V [id number], TSH3, CMP wRFX A1C, LIPID, CBC, FE PRO, [id number] #### [address] Lymphocytes [#/volume] in Bl ood by Automated countOrdered By: Analia Holliday on 05-30-2023 Lymphocytes (Bld) [#/Vol] 2.0 10*3/uL Normal 1.00-4.8 [facility] Comment on above: Order Comment: Reaso n for Exam Well adult exam Performed By: #### V [id number], TSH3, CMP wRFX A1C, LIPID, CBC, FE PRO, [id number] #### [facility] [address] [place] [address] [place] Lymphocytes/100 leukocytes i n Blood by Automated countOrdered By: Analia Holliday on 05-30-2023 Lymphocytes/100 WBC (Bld) 39.3 % Normal . [facility] Comment on above: Order Comment: Reaso n for Exam Well adult exam Performed By: #### V [id number], TSH3, CMP wRFX A1C, LIPID, CBC, FE PRO, [id number] #### [facility] [address] [place] [address] MCH [Entitic mass] by Automa shena countOrdered By: Analia Holliday on 05-30-2023 MCH (RBC) [Entitic mass] 31.6 pg Normal 24.7-34.3 [facility] Comment on above: Order Comment: Reaso n for Exam Well adult exam Performed By: #### V [id number], TSH3, CMP wRFX A1C, LIPID, CBC, FE PRO, [id number] #### [address] MCHC Auto (RBC) [Mass/Vol]Or dered By: Analia Holliday on 05-30-2023 MCHC (RBC) [Mass/Vol] 34.1 g/dL 32.0-35.0 [facility] MCV [Entitic volume] by Auto mated countOrdered By: Analia Holliday on 05-30-2023 MCV (RBC) [Entitic vol] 92.6 fL Normal 80-100 [facility] Comment on above: Order Comment: Reaso n for Exam Well adult exam Performed By: #### V [id number], TSH3, CMP wRFX A1C, LIPID, CBC, FE PRO, [id number] #### [facility] [address] [place] [address] Neutrophils [#/volume] in Bl ood by Automated countOrdered By: Analia Holliday on 05-30-2023 Neutrophils (Bld) [#/Vol] 2.3 10*3/uL Normal 1.8-7.7 [facility] Comment on above: Order Comment: Reaso n for Exam Well adult exam Performed By: #### V [id number], TSH3, CMP wRFX A1C, LIPID, CBC, FE PRO, [id number] #### [facility] [address] [place] [address] No Panel InformationOrdered By: Analia Holliday on 05-30-2023 Estimated GFR (CKD-EPI) > 60.0 mL/Min [facility] Creatinine Clearance (Chem N/A [facility] Nucleated erythrocytes [Pres ence] in Blood by Automated countOrdered By: Analia Holliday on 05-30-2023 Nucleated RBC Auto Ql (Bld) 0.1 /100{WBC} 0-0.5 [facility] Platelet mean volume [Entiti c volume] in Blood by Automated countOrdered By: Analia Holliday on 05-30-2023 Platelet mean volume (Bld) [Entitic vol] 9.7 fL Normal 6.3-10.7 [facility] Comment on above: Order Comment: Reaso n for Exam Well adult exam Performed By: #### V [id number], TSH3, CMP wRFX A1C, LIPID, CBC, FE PRO, [id number] #### [facility] [address] [place] [address] [place] Platelets [#/volume] in Bloo d by Automated countOrdered By: Analia Holliday on 05-30-2023 Platelets (Bld) [#/Vol] 198 10*3/uL Normal 150-450 [facility] Comment on above: Order Comment: Reaso n for Exam Well adult exam Performed By: #### V [id number], TSH3, CMP wRFX A1C, LIPID, CBC, FE PRO, [id number] #### [facility] [address] [place] [id number] [place] Potassium [Moles/volume] in Serum or PlasmaOrdered By: Analia Holliday on 05-30-2023 Potassium [Moles/Vol] 4.2 mmol/L Normal 3.5-5.1 [facility] Comment on above: Order Comment: Reaso n for Exam Well adult exam Performed By: #### V [id number], TSH3, CMP wRFX A1C, LIPID, CBC, FE PRO, [id number] #### [facility] [address] [place] [address] [place] Protein [Mass/volume] in Ser um or PlasmaOrdered By: Analia Holliday on 05-30-2023 Protein [Mass/Vol] 7.1 g/dL Normal 6.4-8.9 [facility] Comment on above: Order Comment: Reaso n for Exam Well adult exam Performed By: #### V [id number], TSH3, CMP wRFX A1C, LIPID, CBC, FE PRO, [id number] #### [facility] [address] Serum globulin measurement b y calculation (mass/volume)Ordered By: Analia Holliday on 05-30-2023 Globulin (S) [Mass/Vol] 2.5 g/dL Normal [facility] Comment on above: Order Comment: Reaso n for Exam Well adult exam Performed By: #### V [id number], TSH3, CMP wRFX A1C, LIPID, CBC, FE PRO, [id number] #### [facility] [address] [place] [address] Serum or plasma albumin/glob ulin mass ratioOrdered By: Analia Holliday on 05-30-2023 Albumin/Globulin [Mass ratio] 1.8 {ratio} Normal [facility] Comment on above: Order Comment: Reaso n for Exam Well adult exam Performed By: #### V [id number], TSH3, CMP wRFX A1C, LIPID, CBC, FE PRO, [id number] #### [facility] [address] [place] [address] Serum or plasma anion gap de terminationOrdered By: Analia Holliday on 05-30-2023 Anion gap [Moles/Vol] 8.7 mmol/L Normal 6.0-15.0 [facility] Comment on above: Order Comment: Reaso n for Exam Well adult exam Performed By: #### V [id number], TSH3, CMP wRFX A1C, LIPID, CBC, FE PRO, [id number] #### [facility] [address] [place] [address] Serum or plasma high density lipoprotein (HDL) cholesterol measurementOrdered By: Analia Holliday on 05-30-2023 Cholesterol in HDL [Mass/Vol] 61 mg/dL Normal 23-92 [facility] Comment on above: HDL CHOL ATP-III CLA SSIFICATION Cardiovascular RiskHDL > or equal to 60 mg/dL LOWHDL < 40 mg/dL HIGH Order Comment: Reaso n for Exam Well adult exam Result Comment: HDL CHOL ATP-III CLASSIFICATION Cardiovascular Risk HDL > or equal to 60 mg/dL LOW HDL < 40 mg/dL HIGH Performed By: #### V [id number], TSH3, CMP wRFX A1C, LIPID, CBC, FE PRO, [id number] #### [facility] [address] Serum or plasma total choles terol/high density lipoprotein (HDL) cholesterol mass ratOrdered By: Analia Holliday on 05-30-2023 Cholesterol.total/Cho lesterol in HDL [Mass ratio] 2.8 {ratio} Normal <5.0 [facility] Comment on above: Order Comment: Reaso n for Exam Well adult exam Performed By: #### V [id number], TSH3, CMP wRFX A1C, LIPID, CBC, FE PRO, [id number] #### [address] Sodium [Moles/volume] in Ser um or PlasmaOrdered By: Analia Holliday on 05-30-2023 Sodium [Moles/Vol] 138 mmol/L Normal 136-145 [facility] Comment on above: Order Comment: Reaso n for Exam Well adult exam Performed By: #### V [id number], TSH3, CMP wRFX A1C, LIPID, CBC, FE PRO, [id number] #### [facility] [address] [place] [address] Thyrotropin [Units/volume] i n Serum or PlasmaOrdered By: Analia Holliday on 05-30-2023 TSH Qn 0.95 m[IU]/L Normal 0.45-5.33 [facility] Comment on above: Order Comment: Reaso n for Exam Well adult exam Performed By: #### V [id number], TSH3, CMP wRFX A1C, LIPID, CBC, FE PRO, [id number] #### [facility] [address] [place] [address] [place] Transferrin [Mass/volume] in Serum or PlasmaOrdered By: Analia Holliday on 05-30-2023 Transferrin [Mass/Vol] 249 mg/dL Normal 203-362 [facility] Comment on above: Order Comment: Reaso n for Exam Well adult exam Performed By: #### V [id number], TSH3, CMP wRFX A1C, LIPID, CBC, FE PRO, [id number] #### [facility] [address] [place] [address] [place] Triglyceride [Mass/volume] i n Serum or PlasmaOrdered By: Analia Holliday on 05-30-2023 Triglyceride [Mass/Vol] 42 mg/dL 0-149 [facility] Comment on above: TRIG ATP III CLASSIF ICATIONTRIG less than 150 mg/dL NormalTRIG 150-199 mg/dL Borderline highTRIG 200-500 mg/dL High TRIG greater than 500 mg/dL Very highStandard traceable to the Center for Disease Conrtrol and Prevention (CDC) test method. Urea nitrogen [Mass/volume] in Serum or PlasmaOrdered By: Analia Holliday on 05-30-2023 Urea nitrogen [Mass/Vol] 12 mg/dL Normal 7-25 [facility] Comment on above: Order Comment: Reaso n for Exam Well adult exam Performed By: #### V [id number], TSH3, CMP wRFX A1C, LIPID, CBC, FE PRO, [id number] #### [facility] [address] [id number] [facility] Vit. B12/Folate Profileon Folate 23.0 ng/mL Normal >5.9 [facility] Comment on above: Order Comment: Reaso n for Exam Well adult exam Result Comment: Pina te reference range: >5.9 ng/ml The WHO technical consultation on folate and vitamin b12 deficiencies has determined that folate concentrations less than 4 ng/ml are considered deficient. Performed By: #### V [id number], TSH3, CMP wRFX A1C, LIPID, CBC, FE PRO, [id number] #### [facility] [address] [place] [address] [place] Vitamin B12 ser/plasOrdered By: Analia Holliday on 05-30-2023 Cobalamin (Vitamin B12) [Mass/Vol] 630 pg/mL Normal 180-914 [facility] Comment on above: Order Comment: Reaso n for Exam Well adult exam Performed By: #### V [id number], TSH3, CMP wRFX A1C, LIPID, CBC, FE PRO, [id number] #### [facility] [address] Vitamin D 25 Hydroxy Totalon 05-30-2023 Vitamin D 25 Hydroxy Total 27.7 ng/mL Low 30-100 [facility] Comment on above: Order Comment: Reaso n for Exam Well adult exam Result Comment: ANN MARIE MIN D STATUS 25(OH)VITAMIN D RANGE (ng/mL) Deficient <20 Insufficient 20 to <30 Sufficient 30 to 100 Reference: Manpreet Martinez, Doe COLEMAN, et al. Evaluation,treatment, and prevention of vitamin D deficiency; an Endocrine Society clinical practice guideline. JCEM. 2010; 96(7):1911-. PERFORMED BY: [address] [place] [address] PATHOLOGIST OPERATIONS REPRESENTATIVE RY BUTTERFIELD M.D. Performed By: #### V [id number], TSH3, CMP wRFX A1C, LIPID, CBC, FE PRO, [id number] #### [facility] [address] [place] [address] Vitamin D+Metabolites [Mass/ volume] in Serum or PlasmaOrdered By: Analia Holliday on 05-30-2023 Vitamin D+Metabolites [Mass/Vol] 27.7 ng/mL 30-100 [facility] Comment on above: VITAMIN D STATUS 25( [place])VITAMIN D RANGE (ng/mL) Deficient <20 Insufficient 20 to <30Sufficient 30 to 100Reference: Manpreet Martinez, Doe COLEMAN, et al. Evaluation,treatment, and prevention of vitamin D deficiency; an Endocrine Society clinical practice guideline. JCEM. 2010; 96(7):1911-30. ALL[facility]ALTHon 04-13-2023 [facility] HNO ID: [id number] Author: Yessi Adkins, lead electrical engineer Service: Radiology Author Type: Felt Hanger Type: Allied Health Filed: 04/13/2023 3:14 PM [...] Exam(s) Completed: Body: Pancreas/Biliary SIGNATURE: Yessi Adkins lead electrical engineer PATIENT NAME: Rosa Alonzo DATE: April 13, 2023 TIME: 3:13 PM Normal [facility] MR Abdomen WO and W contrast Eddie 04-13-2023 IMPRESSION: No MR findings of acute or chronic pancreatitis. No pancreatic divisum. Dipper Operator: PSCB Transcribe Date/Time: Apr 13 2023 3:30P Dictated by : ERIC VILLAR MD This examination was interpreted and the report reviewed and electronically signed by: ERIC VILLAR MD on Apr 13 2023 3:50PM [facility] * * *Final Report* * * DATE OF EXAM: Apr 13 2023 3:23PM [facility] 0689 - MRI ABDOMEN WO/W [...] ascites. Osseous structures: No aggressive osseous lesions. [facility] Provider, [facility] - 04/13/2023 * * *Final Report* * * DATE OF EXAM: Apr 13 2023 3:23PM [facility] 0689 - MRI ABDOMEN WO/W [...] acute or chronic pancreatitis. No pancreatic divisum. Dipper Operator: FRANCISCO Transcribe Date/Time: Apr 13 2023 3:30P Dictated by : ERIC VILLAR MD This examination was interpreted and the report reviewed and electronically signed by: ERIC VILLAR MD on Apr 13 2023 3:50PM EST [facility] Radiology Study observation (narrative) [facility] MR Abdomen WO and W contrast IVOrdered By: [facility]cf Provider on 04-13-2023 [facility] MRI ABDOMEN WO/W IVCONon MRI ABDOMEN WO/W IVCON * * *Final Report* * * DATE OF EXAM: Apr 13 2023 3:23PM [facility] 0689 - MRI ABDOMEN WO/W IVCON / [...] acute or chronic pancreatitis. No pancreatic divisum. Dipper Operator: FRANCISCO Transcribe Date/Time: Apr 13 2023 3:30P Dictated by : ERIC VILLAR MD This examination was interpreted and the report reviewed and electronically signed by: ERIC VILLAR MD on Apr 13 2023 3:50PM EST [id number] [facility] 04-12-2023 [facility] Telephone (RGFV) ----- ROSA ALONZO ([id number]) 2000 F Date Time Provider Department 04/12/23 SALMA ALTAMIRANO (SHOAIB) [facility] During your visit today, we recorded the [...] mouth three times daily with meals. - kxrzse-gafogkoh-frodnce (ZENPEP) 40,000-126,000- 168,000 unit delayed release capsule [...] Encounter Status:Closed by SALMA SIMPSON on 04/12/23 [facility] [place] HEPATOBILIARY SCAN W EFon 12-01-2022 NM [...] limits. IMPRESSION: Normal study. Electronically authenticated by: ADRA CEDILLO Date: 2022-12-01 13:[address] [facility] OVA AND PARASITE EXAMINATION on 11-13-2022 Ova + Parasite Exam Final report Normal [facility] Comment on above: Result Comment: Thes e results were obtained using wet preparation(s) and trichrome stained smear. This test does not include testing for Cryptosporidium parvum, Cyclospora, or Microsporidia. Performed By: #### O VAPE #### [facility] [address] [place] [address] Dr. Timi Prater Result 1 Comment Normal [facility] Comment on above: Result Comment: No o va, cysts, or parasites seen. . One negative specimen does not rule out the possibility of a parasitic infection. Performed By: #### O VAPE #### [facility] [address] [place] [address] Dr. Timi Prater AMYLASEon 11-04-2022 Amylase [Catalytic activity/Vol] 39 U/L Normal 25-[address] [facility] Comment on above: Performed By: #### O VAPE #### [facility] [address] [place] [address] Dr. Timi Prater CBC AUTO DIFFon 11-04-2022 BASO # 0.1 103/ul Normal 0.0-0.1 [facility] Comment on above: Performed By: #### C ALPOO #### [facility] [address] [place] [address] Dr. Timi Prater Basophils/100 WBC (Bld) 1.1 % Normal 0.2-2.0 [facility] Comment on above: Performed By: #### C ALPOO #### [facility] [address] [place] [address] Dr. Timi Prater EO # 0.2 103/ul Normal 0.0-0.7 [facility] Comment on above: Performed By: #### C ALPOO #### [facility] [address] [place] [address] Dr. Timi Prater Eosinophils/100 WBC (Bld) 3.5 % Normal 0.9-7.0 [facility] Comment on above: Performed By: #### C ALPOO #### [facility] [address] [place] [address] Dr. Timi Prater Erythrocyte distribution width (RBC) [Ratio] 11.5 % Normal 11.0-15.[address] [facility] Comment on above: Performed By: #### C ALPOO #### [facility] [address] [place] [address] Dr. Timi Prater Hematocrit (Bld) [Volume fraction] 39.8 % Normal 36.0-48.0 [facility] Comment on above: Performed By: #### C ALPOO #### [facility] [address] [place] [address] Dr. Timi Prater Hemoglobin (Bld) [Mass/Vol] 13.7 g/dL Normal 12.0-16.0 [facility] Comment on above: Performed By: #### C ALPOO #### [facility] [address] [place] [address] Dr. Timi Prater IG # 0.01 10e3/ul Normal 0.00-0.03 [facility] Comment on above: Performed By: #### C ALPOO #### [facility] [address] [place] [address] Dr. Timi Prater IG % 0.2 % Normal 0.0-0.5 [facility] Comment on above: Performed By: #### C ALPOO #### [facility] [address] [place] [address] Dr. Timi Prater LYMPH # 2.4 103/ul Normal 1.2-3.8 [facility] Comment on above: Performed By: #### C ALPOO #### [facility] [address] [place] [address] Dr. Timi Prater Lymphocytes/100 WBC (Bld) 53.1 % Normal 20.5-60.0 [facility] Comment on above: Performed By: #### C ALPOO #### [facility] [address] [place] [address] Dr. Timi Prater MANUAL DIFF REQ NO Normal [facility] Comment on above: Performed By: #### C ALPOO #### [facility] [address] [place] [address] Dr. Timi Prater MCH (RBC) [Entitic mass] 31.6 pg Normal 26.7-34.0 [facility] Comment on above: Performed By: #### C ALPOO #### [facility] [address] [place] [address] Dr. Timi Prater MCHC (RBC) [Mass/Vol] 34.4 g/dL Normal 29.9-35.2 [facility] Comment on above: Performed By: #### C ALPOO #### [facility] [address] [place] [address] Dr. Timi Prater MCV (RBC) [Entitic vol] 91.7 fL Normal 81.0-99.0 [facility] Comment on above: Performed By: #### C ALPOO #### [facility] [address] [place] [address] Dr. Timi Prater MONO # 0.4 103/ul Normal 0.3-0.8 [facility] Comment on above: Performed By: #### C ALPOO #### [facility] [address] [place] [address] Dr. Timi Prater Monocytes/100 WBC (Bld) 8.1 % Normal 1.7-12.0 [facility] Comment on above: Performed By: #### C ALPOO #### [facility] [address] [place] [address] Dr. Timi Prater NEUT # 1.6 103/ul Normal 1.4-6.5 [facility] Comment on above: Performed By: #### C ALPOO #### [facility] [address] [place] [address] Dr. Timi Prater Neutrophils/100 WBC (Bld) 34.0 % Critically low 43.0-75.0 [facility] Comment on above: Performed By: #### C ALPOO #### [facility] [address] [place] [address] Dr. Timi Prater Platelet mean volume (Bld) [Entitic vol] 10.7 fL Normal 9.5-13.5 [facility] Comment on above: Performed By: #### C ALPOO #### [facility] [address] [place] [address] Dr. Timi Prater PLT 192 103/ul Normal 150-[address] [facility] Comment on above: Performed By: #### C ALPOO #### [facility] [address] [place] [address] Dr. Timi Prater RBC 4.34 106/ul Normal 4.20-5.[address] [facility] Comment on above: Performed By: #### C ALPOO #### [facility] [address] [place] [address] Dr. Timi Prater WBC 4.6 103/ul Normal 4.0-11.[address] [facility] Comment on above: Performed By: #### C ALPOO #### [facility] [address] [place] [address] Dr. Timi Prater GI PANEL (PCR)on 11-04-2022 Adenovirus F 40/41 Not detected Normal NOT DETECTED [facility] Comment on above: Performed By: #### C DIFPOC #### [facility] [address] [place] [address] Dr. Timi Prater Astrovirus Not detected Normal NOT DETECTED [facility] Comment on above: Performed By: #### C DIFPOC #### [facility] [address] [place] [address] Dr. Timi Guevara. Diff toxin A/B Not detected Normal NOT DETECTED [facility] Comment on above: Performed By: #### C DIFPOC #### [facility] [address] [place] [address] Dr. Timi Prater Campylobacter Not detected Normal NOT DETECTED [facility] Comment on above: Performed By: #### C DIFPOC #### [facility] [address] [place] [address] Dr. Timi Prater Cryptosporidium Not detected Normal NOT DETECTED [facility] Comment on above: Performed By: #### C DIFPOC #### [facility] [address] [place] [address] Dr. Timi Prater Cyclos. Cayetanensis Not detected Normal NOT DETECTED [facility] Comment on above: Performed By: #### C DIFPOC #### [facility] [address] [place] [address] Dr. Timi Prater E. Coli O157 Not Applicable Normal Not Applicable [facility] Comment on above: Performed By: #### C DIFPOC #### [facility] [address] [place] [address] Dr. Timi Prater E. histolytica Not detected Normal NOT DETECTED [facility] Comment on above: Performed By: #### C DIFPOC #### [facility] [address] [place] [address] Dr. Timi Prater EAEC Not detected Normal NOT DETECTED [facility] Comment on above: Performed By: #### C DIFPOC #### [facility] [address] [place] [address] Dr. Timi Prater EIEC Not detected Normal NOT DETECTED [facility] Comment on above: Performed By: #### C DIFPOC #### [facility] [address] [place] [address] Dr. Timi Prater EPEC Not detected Normal NOT DETECTED [facility] Comment on above: Performed By: #### C DIFPOC #### [facility] [address] [place] [address] Dr. Timi Prater ETEC Not detected Normal NOT DETECTED [facility] Comment on above: Performed By: #### C DIFPOC #### [facility] [address] [place] [address] Dr. Timi Prater G. Lamblia Not detected Normal NOT DETECTED [facility] Comment on above: Performed By: #### C DIFPOC #### [facility] [address] [place] [address] Dr. Timi WHARTON CONTROLS PASSED Normal [facility] Comment on above: Performed By: #### C DIFPOC #### [facility] [address] [place] [address] Dr. Timi HOWARD HEADER GI PANEL BACTERIA Normal [facility] Comment on above: Performed By: #### C DIFPOC #### [facility] [address] [place] [address] Dr. Timi FAJARDO ECOLI GI PANEL DIARRHEAGEN IC E.COLI / SHIGELLA Normal [facility] Comment on above: Performed By: #### C DIFPOC #### [facility] [address] [place] [address] Dr. Timi FAJARDO INFO SEE BELOW Normal [facility] Comment on above: Result Comment: EAEC - Enteroaggregative E. Coli EPEC- Enteropathogenic E. Coli ETEC- Enterotoxigenic E. Coli lt/st STEC- Shigella-like toxin-producing E. Coli stx1/stx2 EIEC- Shigella/Enteroinvasive E. Coli Performed By: #### C DIFPOC #### [facility] [address] [address] [address] Timi FAJARDO PARASITES GI PANEL PARASITES Normal [facility] Comment on above: Performed By: #### C DIFPOC #### [facility] [address] [place] [address] Dr. Timi FAJARDO VIRUS GI PANEL VIRUSES Normal [facility] Comment on above: Performed By: #### C DIFPOC #### [facility] [address] [place] [address] Dr. Timi Prater Norovirus GI/GII Not detected Normal NOT DETECTED [facility] Comment on above: Performed By: #### C DIFPOC #### [facility] [address] [place] [address] Dr. Timi Prater P. Shigelloides Not detected Normal NOT DETECTED [facility] Comment on above: Performed By: #### C DIFPOC #### [facility] [address] [place] [address] Dr. Timi Prater Rotavirus A Not detected Normal NOT DETECTED [facility] Comment on above: Performed By: #### C DIFPOC #### [facility] [address] [place] [address] Dr. Timi Prater Salmonella Not detected Normal NOT DETECTED [facility] Comment on above: Performed By: #### C DIFPOC #### [facility] [address] [place] [address] Dr. Timi Prater Sapovirus Not detected Normal NOT DETECTED [facility] Comment on above: Performed By: #### C DIFPOC #### [facility] [address] [place] [address] Dr. Timi Prater STEC Not detected Normal NOT DETECTED [facility] Comment on above: Performed By: #### C DIFPOC #### [facility] [address] [place] [address] Dr. Timi Prater Vibrio Not detected Normal NOT DETECTED [facility] Comment on above: Performed By: #### C DIFPOC #### [facility] [address] [place] [address] Dr. Timi Prater Vibrio Cholera Not detected Normal NOT DETECTED [facility] Comment on above: Performed By: #### C DIFPOC #### [facility] [address] [place] [address] Dr. Timi Prater Y. Enterocolitica Not detected Normal NOT DETECTED [facility] Comment on above: Performed By: #### C DIFPOC #### [facility] [address] [place] [address] Dr. Timi Prater LIPASEon 11-04-2022 Lipase [Catalytic activity/Vol] 88.0 U/L Normal 73.0-393.0 [facility] Comment on above: Performed By: #### O VAPE #### [facility] [address] [place] [address] Dr. Timi Prater OCC BLD IMMUNO SCREENon 10-21 OCCULT BLOOD Negative Normal NEGATIVE [facility] Comment on above: Performed By: #### C ALPOO #### [facility] [address] [place] [address] Dr. Timi Prater PROF 14(COMP METB)on 023 Albumin [Mass/Vol] 4.2 g/dL Normal 3.4-5.0 [facility] Comment on above: Performed By: #### C ALPOO #### [facility] [address] [place] [address] Dr. Timi Prater Albumin/Globulin [Mass ratio] 1.2 {ratio} Normal [facility] Comment on above: Performed By: #### C ALPOO #### [facility] [address] [place] [address] Dr. Timi Prater ALP [Catalytic activity/Vol] 55 U/L Normal 46-[address] [facility] Comment on above: Performed By: #### C ALPOO #### [facility] [address] [place] [address] Dr. Timi Prater ALT [Catalytic activity/Vol] 14 U/L Normal 14-59 [facility] Comment on above: Performed By: #### C ALPOO #### [facility] [address] [place] [address] Dr. Timi Prater Anion gap [Moles/Vol] 11.9 mmol/L Normal [facility] Comment on above: Performed By: #### C ALPOO #### [facility] [address] [address] [address] Timi Prater AST [Catalytic activity/Vol] 13 U/L Critically low 15-37 [facility] Comment on above: Performed By: #### C ALPOO #### [facility] [address] [address] [address] Timi Prater Bilirubin [Mass/Vol] 0.6 mg/dL Normal 0.2-1.0 [facility] Comment on above: Performed By: #### C ALPOO #### [facility] [address] [place] [address] Dr. Timi Prater Calcium [Mass/Vol] 9.4 mg/dL Normal 8.5-10.1 [facility] Comment on above: Performed By: #### C ALPOO #### [facility] [address] [address] [address] Timi Prater Chloride [Moles/Vol] 104 mmol/L Normal 98-107 [facility] Comment on above: Performed By: #### C ALPOO #### [facility] [address] [place] [address] Dr. Timi Prater CO2 [Moles/Vol] 26.6 mmol/L Normal 21.0-32.0 [facility] Comment on above: Performed By: #### C ALPOO #### [facility] [address] [place] [address] Dr. Timi Prater Creatinine [Mass/Vol] 0.85 mg/dL Normal 0.55-1.[address] [facility] Comment on above: Performed By: #### C ALPOO #### [facility] [address] [place] [address] Dr. Timi Prater EGFR-AF GUATEMALAN >60 Normal >=60 [facility] Comment on above: Performed By: #### C ALPOO #### [facility] [address] [place] [address] Dr. Timi Prater EGFR-NON AF GUATEMALAN >60 Normal >=60 [facility] Comment on above: Performed By: #### C ALPOO #### [facility] [address] [address] [address] Timi Prater Globulin (S) [Mass/Vol] 3.6 g/dL Normal [facility] Comment on above: Performed By: #### C ALPOO #### [facility] [address] [address] [address] Timi Prater Glucose [Mass/Vol] 100 mg/dL Normal 74-106 [facility] Comment on above: Performed By: #### C ALPOO #### [facility] [address] [address] [address] Timi Prater Potassium [Moles/Vol] 3.5 mmol/L Normal 3.5-5.1 [facility] Comment on above: Performed By: #### C ALPOO #### [facility] [address] [place] [address] Dr. Timi Prater Protein [Mass/Vol] 7.8 g/dL Normal 6.4-8.2 [facility] Comment on above: Performed By: #### C ALPOO #### [facility] [address] [place] [address] Dr. Timi Prater Sodium [Moles/Vol] 139 mmol/L Normal 136-145 [facility] Comment on above: Performed By: #### C ALPOO #### [facility] [address] [address] [address] Timi Prater Urea nitrogen [Mass/Vol] 13.0 mg/dL Normal 7.0-18.0 [facility] Comment on above: Performed By: #### C ALPOO #### [facility] [address] [address] [address] Timi Prater Urea nitrogen/Creatinine [Mass ratio] 15.3 mg/mg Normal [facility] Comment on above: Performed By: #### C ALPOO #### [facility] [address] [address] [address] Timi Prater C. DIFF PCRon 11-03-2022 C. DIFFICILE PCR Negative Normal NEGATIVE [facility] Comment on above: Performed By: #### T HYRABS #### [facility] [address] [address] [address] Timi Prater Orders Onlyon 10-31-2022 Orders Only [id number] Rosa Alonzo 2000 F Date Provider Department Center 10/31/2022 [id number], HISTORICAL MP [facility] No family history on file Normal [facility] PANCREATIC ELASTASE FECALon 10-31-2022 Pancreatic Elastase, Fecal 253 ug Elast./g Normal >200 [facility] Comment on above: Result Comment: Tia re Pancreatic Insufficiency: <100 Moderate Pancreatic Insufficiency: 100 - 200 Normal: >200 Performed By: #### C ALPOO #### [facility] [address] [place] [address] Dr. Timi Prater US SINGLE QUAD RT [...] DARA SAVAGE Date: 2022-10-31 08:[address] [facility] Orders Onlyon 10-23-2022 Orders Only [id number] Rosa Alonzo 2000 F Date Provider Department Center 10/23/2022 [id number], HISTORICAL [facility] No family history on file Normal [facility] CBC AUTO DIFFon 10-20-2022 BASO # 0.1 103/ul Normal 0.0-0.1 [facility] Comment on above: Performed By: #### C BC #### [facility] [address] [place] [address] Dr. Timi Prater Basophils/100 WBC (Bld) 0.9 % Normal 0.2-2.0 [facility] Comment on above: Performed By: #### C BC #### [facility] [address] [place] [address] Dr. Timi Prater EO # 0.1 103/ul Normal 0.0-0.[address] [facility] Comment on above: Performed By: #### C BC #### [facility] [address] [place] [address] Dr. Timi Prater Eosinophils/100 WBC (Bld) 2.6 % Normal 0.9-7.0 [facility] Comment on above: Performed By: #### C BC #### [facility] [address] [place] [address] Dr. Timi Prater Erythrocyte distribution width (RBC) [Ratio] 11.9 % Normal 11.0-15.0 [facility] Comment on above: Performed By: #### C BC #### [facility] [address] [place] [address] Dr. Timi Prater Hematocrit (Bld) [Volume fraction] 41.0 % Normal 36.0-48.0 [facility] Comment on above: Performed By: #### C BC #### [facility] [address] [place] [address] Dr. Timi Prater Hemoglobin (Bld) [Mass/Vol] 14.2 g/dL Normal 12.0-16.0 [facility] Comment on above: Performed By: #### C BC #### [facility] [address] [place] [address] Dr. Timi Prater IG # 0.02 10e3/ul Normal 0.00-0.03 [facility] Comment on above: Performed By: #### C BC #### [facility] [address] [place] [address] Dr. Timi Prater IG % 0.4 % Normal 0.0-0.[address] [facility] Comment on above: Performed By: #### C BC #### [facility] [address] [place] [address] Dr. Timi Prater LYMPH # 1.7 103/ul Normal 1.2-3.8 [facility] Comment on above: Performed By: #### C BC #### [facility] [address] [place] [address] Dr. Timi Prater Lymphocytes/100 WBC (Bld) 31.2 % Normal 20.5-60.0 [facility] Comment on above: Performed By: #### C BC #### [facility] [address] [place] [address] Dr. Timi Prater MANUAL DIFF REQ NO Normal [facility] Comment on above: Performed By: #### C BC #### [facility] [address] [place] [address] Dr. Timi Prater MCH (RBC) [Entitic mass] 31.7 pg Normal 26.7-34.0 [facility] Comment on above: Performed By: #### C BC #### [facility] [address] [place] [address] Dr. Timi Prater MCHC (RBC) [Mass/Vol] 34.6 g/dL Normal 29.9-35.[address] [facility] Comment on above: Performed By: #### C BC #### [facility] [address] [place] [address] Dr. Timi Prater MCV (RBC) [Entitic vol] 91.5 fL Normal 81.0-99.[address] [facility] Comment on above: Performed By: #### C BC #### [facility] [address] [place] [address] Dr. iTmi Prater MONO # 0.5 103/ul Normal 0.3-0.[address] [facility] Comment on above: Performed By: #### C BC #### [facility] [address] [place] [address] Dr. Timi Prater Monocytes/100 WBC (Bld) 8.7 % Normal 1.7-12.0 [facility] Comment on above: Performed By: #### C BC #### [facility] [address] [address] [address] Timi Prater NEUT # 3.1 103/ul Normal 1.4-6.5 [facility] Comment on above: Performed By: #### C BC #### [facility] [address] [place] [address] Dr. Timi Prater Neutrophils/100 WBC (Bld) 56.2 % Normal 43.0-75.0 [facility] Comment on above: Performed By: #### C BC #### [facility] [address] [place] [address] Dr. Timi rPater Platelet mean volume (Bld) [Entitic vol] 10.8 fL Normal 9.5-13.5 [facility] Comment on above: Performed By: #### C BC #### [facility] [address] [place] [address] Dr. Timi Prater PLT 219 103/ul Normal 150-[address] [facility] Comment on above: Performed By: #### C BC #### [facility] [address] [place] [address] Dr. Timi Prater RBC 4.48 106/ul Normal 4.20-5.40 [facility] Comment on above: Performed By: #### C BC #### [facility] [address] [place] [address] Dr. Timi Prater WBC 5.4 103/ul Normal 4.0-11.0 [facility] Comment on above: Performed By: #### C BC #### [facility] [address] [place] [address] Dr. Timi Prater Orders Onlyon 10-20-2022 Orders Only [id number] Rosa Alonzo 2000 F Date Provider Department Center 10/20/2022 Ruchi-KANDY ALBERT MP [facility] No family history on file Normal [facility] PROF 14(COMP METB)on 023 Albumin [Mass/Vol] 4.5 g/dL Normal 3.4-5.0 [facility] Comment on above: Performed By: #### C DIFPOC #### [facility] [address] [place] [address] Dr. Timi Prater Albumin/Globulin [Mass ratio] 1.5 {ratio} Normal [facility] Comment on above: Performed By: #### C DIFPOC #### [facility] [address] [place] [address] Dr. Timi Prater ALP [Catalytic activity/Vol] 56 U/L Normal 46-116 [facility] Comment on above: Performed By: #### C DIFPOC #### [facility] [address] [place] [address] Dr. Timi Prater ALT [Catalytic activity/Vol] 16 U/L Normal 14-59 [facility] Comment on above: Performed By: #### C DIFPOC #### [facility] [address] [place] [address] Dr. Timi Prater Anion gap [Moles/Vol] 15.5 mmol/L Normal [facility] Comment on above: Performed By: #### C DIFPOC #### [facility] [address] [place] [address] Dr. Timi Prater AST [Catalytic activity/Vol] 13 U/L Critically low 15-37 [facility] Comment on above: Performed By: #### C DIFPOC #### [facility] [address] [place] [address] Dr. Timi Prater Bilirubin [Mass/Vol] 0.6 mg/dL Normal 0.2-1.0 [facility] Comment on above: Performed By: #### C DIFPOC #### [facility] [address] [place] [address] Dr. Timi Prater Calcium [Mass/Vol] 9.3 mg/dL Normal 8.5-10.1 [facility] Comment on above: Performed By: #### C DIFPOC #### [facility] [address] [place] [address] Dr. Timi Prater Chloride [Moles/Vol] 104 mmol/L Normal 98-107 [facility] Comment on above: Performed By: #### C DIFPOC #### [facility] [address] [place], [place] [id number] Dr. Timi Prater CO2 [Moles/Vol] 25.7 mmol/L Normal 21.0-32.0 [facility] Comment on above: Performed By: #### C DIFPOC #### [facility] [address] [place] [address] Dr. Timi Prater Creatinine [Mass/Vol] 0.71 mg/dL Normal 0.55-1.[address] [facility] Comment on above: Performed By: #### C DIFPOC #### [facility] [address] [place] [address] Dr. Timi Prater EGFR-AF GUATEMALAN >60 Normal >=60 [facility] Comment on above: Performed By: #### C DIFPOC #### [facility] [address] [place] [address] Dr. Timi Prater EGFR-NON AF GUATEMALAN >60 Normal >=[address] [facility] Comment on above: Performed By: #### C DIFPOC #### [facility] [address] [place] [address] Dr. Timi Prater Globulin (S) [Mass/Vol] 3.1 g/dL Normal [facility] Comment on above: Performed By: #### C DIFPOC #### [facility] [address] [place] [address] Dr. Timi Prater Glucose [Mass/Vol] 77 mg/dL Normal 74-106 [facility] Comment on above: Performed By: #### C DIFPOC #### [facility] [address] [place] [address] Dr. Timi Prater Potassium [Moles/Vol] 4.2 mmol/L Normal 3.5-5.[address] [facility] Comment on above: Performed By: #### C DIFPOC #### [facility] [address] [place] [address] Dr. Timi Prater Protein [Mass/Vol] 7.6 g/dL Normal 6.4-8.2 [facility] Comment on above: Performed By: #### C DIFPOC #### [facility] [address] [place] [address] Dr. Timi Prater Sodium [Moles/Vol] 141 mmol/L Normal 136-145 [facility] Comment on above: Performed By: #### C DIFPOC #### [facility] [address] [address] [address] Timi Prater Urea nitrogen [Mass/Vol] 15.0 mg/dL Normal 7.0-18.0 [facility] Comment on above: Performed By: #### C DIFPOC #### [facility] [address] [address] [address] Timi Prater Urea nitrogen/Creatinine [Mass ratio] 21.1 mg/mg Normal [facility] Comment on above: Performed By: #### C DIFPOC #### [facility] [address] [place] [address] Dr. Timi Prater LIPASEon 10-19-2022 Lipase [Catalytic activity/Vol] 117.0 U/L Normal 73.0-393.0 [facility] Comment on above: Performed By: #### C DIFPOC #### [facility] [address] [place] [address] Dr. Timi Prater Orders Onlyon 10-19-2022 Orders Only [id number] Rosa Alonoz 2000 F Date Provider Department Center 10/19/2022 Ruchi-KANDY ALBERT MP [facility] No family history on file Normal [facility] CT ABD/PELV W CONon 10-19-19 CT [...] by: AZAEL GRIFFIN Date: 2022-10-18 11:[address] [facility] CORTISOL 24HR URINEon 2022 Cortisol,F,ug/24hr,U 19 ug/24 hr Normal 6-[address] [facility] Comment on above: Performed By: #### C ORT24 #### [facility] [address] [address] [address] Timi Prater Cortisol,F,ug/L,U 18 ug/L Normal Undefined [facility] Comment on above: Performed By: #### C ORT24 #### [facility] [address] [place], [place] [address] Dr. Timi Prater CLOSTRIDIUM DIFFICILE PCRon 10-06-2022 C difficile Toxin Gene RUCHI Negative Normal Negative [facility] Comment on above: Performed By: #### C ALPOO #### [facility] [address] [place], [place] [address] Dr. Timi Prater REVERSE T3on 10-01-2022 Reverse T3, Serum 19.3 ng/dL Normal 9.2-24.1 [facility] Comment on above: Result Comment: This test was developed and its performance characteristics determined by [employer]. It has not been cleared or approved by the Food and Drug Administration. Performed By: #### O ANA CRISTINA #### [facility] [address] [place] [address] Dr. Timi Prater Orders Onlyon 09-29-2022 Orders Only [id number] Rosa Alonzo 2000 F Date Provider Department Center 09/29/2022 [id number], HECTOR [facility] No family history on file Normal [facility] C. DIFF PCRon 09-28-2022 C. DIFFICILE PCR Negative Normal NEGATIVE [facility] Comment on above: Performed By: #### C DIFPOC #### [facility] [address] [place] [address] Dr. Timi Prater Orders Onlyon 09-28-2022 Orders Only [id number] Rosa Alonzo 2000 F Date Provider Department Center 09/28/2022 KANDY LÓPEZ [facility] No family history on file Normal [facility] FREE T4on 09-26-2022 Free T4 [Mass/Vol] 0.89 ng/dL Normal 0.76-1.46 [facility] Comment on above: Performed By: #### T JAN #### [facility] [address] [place] [address] Dr. Timi Prater CORTISOL Mely 09-25-2022 Cortisol AM 23.5 ug/dL Critically high 6.2-19.4 [facility] Comment on above: Performed By: #### Paola DIFPOC #### [facility] [address] [place] [address] Dr. Timi Prater THYROID ANTIBODIESon 023 Thyroglobulin Antibody <1.0 Normal 0.0-0.9 [facility] Comment on above: Result Comment: Thyr oglobulin Antibody measured by [employer] Performed By: #### T JAN #### [facility] [address] [place] [address] Dr. Timi Prater Thyroid Peroxidase (TPO) Ab 10 IU/mL Normal 0-34 [facility] Comment on above: Performed By: #### T HYRABS #### [facility] [address] [address] [address] Timi Prater T3, TOTAL (TRIIODOTHYRONINE) on 09-23-2022 T3, TOTAL 108 ng/dL Normal 71-[address] [facility] Comment on above: Performed By: #### O VAPE #### [facility] [address] [address] [address] Timi Prater FREE T3on 09-22-2022 FREE T3 2.65 pg/mlL Normal 2.18-3.98 [facility] Comment on above: Performed By: #### C DIFPOC #### [facility] [address] [address] [address] Timi Prater TSHon 09-22-2022 TSH 1.156 uIU/mL Normal 0.358-3.740 [facility] Comment on above: Performed By: #### C DIFPOC #### [facility] [address] [address] [address] Timi Prater HELICOBACTER PYLORI AG STOOL on 09-14-2022 H. pylori Stool Ag, EIA Negative Normal Negative [facility] Comment on above: Performed By: #### H PYLORI #### [facility] [address] [address] [address] Timi Prater C. DIFF PCRon 09-12-2022 C. DIFFICILE PCR Negative Normal NEGATIVE [facility] Comment on above: Performed By: #### C DIFPOC #### [facility] [address] [address] [address] Timi Prater Orders Onlyon 09-12-2022 Orders Only [id number] Rosa Alonzo 2000 F Date Provider Department Center 09/12/2022 [id number], HISTORICAL MP [facility] No family history on file Normal [facility] 37on 09-11-2022 37 [employer] for SIB O specific diet Normal [facility] Office Visiton 09-11-2022 Follow-up visit [id number] Rosa Alonzo 2000 F Date Provider Department Center 09/11/2022 KANDY LÓPEZ MP [facility] No family history on file Level of Service:59969 [place] OFFICE/OUTPATIENT ESTABLISHED MOD MDM 30-39 MIN Reason for Visit and Comments: continued stomach issues [Other] Normal [facility] Orders Onlyon 09-07-2022 Orders Only [id number] Clinton,Rosa 2000 F Date Provider Department [place] 09/07/2022 KANDY LÓPEZ [facility] No family history on file Normal [facility] STOOL CULTUREon 09-03-2022 Campylobacter Culture Final report Normal [facility] Comment on above: Performed By: #### O VAPE #### [facility] [address] [place] [address] Dr. Timi Prater E coli Shiga Toxin EIA Negative Normal Negative [facility] Comment on above: Performed By: #### O VAPE #### [facility] [address] [place] [address] Dr. Timi Prater Result 1 Comment Normal [facility] Comment on above: Result Comment: No S almonella or Shigella recovered. Performed By: #### O VAPE #### [facility] [address] [place] [address] Dr. Timi Prater Result Comment: No C ampylobacter species isolated. Salmonella/Shigella Screen Final report Normal [facility] Comment on above: Performed By: #### O VAPE #### [facility] [address] [place] [address] Dr. Timi Prater CALPROTECTIN, FECALon 2022 Calprotectin, Fecal <16 Normal 0-120 [facility] Comment on above: Result Comment: Conc entration Interpretation Follow-Up <16 - 50 ug/g Normal None >50 -120 ug/g Borderline Re-evaluate in 4-6 weeks >120 ug/g Abnormal Repeat as clinically indicated Performed By: #### C ALPOO #### [facility] [address] [place] [address] Dr. Timi Prater Orders Onlyon 08-31-2022 Orders Only [id number] Clinton,Rosa 2000 [facility] Department [place] 08/31/2022 [id number], HISTORICAL MP [facility] No family history on file [facility] 36on 08-30-2022 36 Order faxed. [facility] o [facility] 36 Pt calling stating t he Enteric Bacteria Stool Culture that you ordered her, her insurance will not cover and would cost at $1,0000 for her to have completed. [facility] told her to inform you to order just a regular stool culture instead. The order can be faxed to [phone]. [facility] C. DIFF PCRon 08-30-2022 C. DIFFICILE PCR Negative Normal NEGATIVE [facility] Comment on above: Performed By: #### O VAPE #### [facility] [address] [place] [address] Dr. Timi Prater Office Visiton 08-30-2022 Follow-up visit [id number] Rosa Alonzo 2000 [facility] 08/30/2022 KANDY LÓPEZ MP [facility] No family history on file Level of Service:71407 [place] OFFICE/OUTPATIENT ESTABLISHED MOD MDM 30-39 MIN Reason for Visit and Comments: Colonoscopy [235] [facility] Orders Onlyon 08-30-2022 Orders Only [id number] Rosa Alonzo 2000 [facility] 08/30/2022 KANDY LÓPEZ MP [facility] Medical [facility] No family history on file [facility] CLOSTRIDIUM DIFFICILE PCRon 08-26-2022 C difficile Toxin Gene RUCHI Negative Normal Negative [facility] Comment on above: Performed By: #### C ALPOO #### [facility] [address] [place] [address] Dr. Timi Prater ER URINE PROFILEon 3 Bilirubin Ql (U) Negative Normal NEGATIVE [facility] Comment on above: Performed By: #### T HYRABS #### [facility] [address] [place] [address] Dr. Timi Prater Clarity (U) CLEAR Normal CLEAR [facility] Comment on above: Performed By: #### T HYRABS #### [facility] [address] [place] [address] Dr. Timi Prater Color (U) LT. YELLOW Normal YELLOW [facility] Comment on above: Performed By: #### T HYRABS #### [facility] [address] [place] [address] Dr. Timi Prater ERUAHD A micrscopic examina tion will be performed if indicated. Normal [facility] Comment on above: Performed By: #### T HYRABS #### [facility] [address] [place] [address] Dr. Timi Prater Glucose Ql (U) Negative Normal NEGATIVE [facility] Comment on above: Performed By: #### T HYRABS #### [facility] [address] [place] [address] Dr. Timi Prater Hemoglobin Ql (U) Negative Normal NEGATIVE [facility] Comment on above: Performed By: #### T HYRABS #### [facility] [address] [place] [address] Dr. Timi Prater Ketones Ql (U) Negative Normal NEGATIVE [facility] Comment on above: Performed By: #### T HYRABS #### [facility] [address] [place] [address] Dr. Timi Prater LEUKOCYTES Negative Normal NEGATIVE [facility] Comment on above: Performed By: #### T HYRABS #### [facility] [address] [place] [address] Dr. Timi Prater Nitrite Ql (U) Negative Normal NEGATIVE [facility] Comment on above: Performed By: #### T HYRABS #### [facility] [address] [place] [address] Dr. Timi Prater pH (U) 7.0 [pH] Normal 5-9 [facility] Comment on above: Performed By: #### T HYRABS #### [facility] [address] [place] [address] Dr. Timi Prater SPEC GRAVITY 1.020 Normal 1.005-<=1.0 25 [facility] Comment on above: Performed By: #### T HYRABS #### [facility] [address] [place] [address] Dr. Timi Prater UA PROTEIN TRACE Normal NEGATIVE/ TRACE [facility] Comment on above: Performed By: #### T HYRABS #### [facility] [address] [address] [address] Timi Prater UR MICRO IND NOT INDICATED Normal [facility] Comment on above: Performed By: #### T HYRABS #### [facility] [address] [place] [address] Dr. Timi Prater Urobilinogen Qn (U) 0.2 {Trini'U}/dL Normal 0.2 - 1. 0 [facility] Comment on above: Performed By: #### T HYRABS #### [facility] [address] [place] [address] Dr. Timi Prater C. DIFF PCRon 08-22-2022 C. DIFFICILE PCR Negative Normal NEGATIVE [facility] Comment on above: Performed By: #### C DIFPOC #### [facility] [address] [place] [address] Dr. Timi Prater CARDIAC RITA ADMITon 023 CK [Catalytic activity/Vol] 56 U/L Normal 26-192 [facility] Comment on above: Performed By: #### O VAPE #### [facility] [address] [place] [address] Dr. Timi Prater CK.MB [Mass/Vol] ng/mL Normal <=3.60 [facility] Comment on above: Performed By: #### O VAPE #### [facility] [address] [place] [address] Dr. Timi Prater HSTROP 9.0 pg/mL Normal 4.0-51.[address] [facility] Comment on above: Result Comment: CUT- OFF POINTS HAVE BEEN ESTABLISHED BASED ON THE FOURTH UNIVERSAL DEFINITIONS OF MYOCARDIAL INFARCTION. THE UPPER REFERENCE LIMIT (URL) OF TROPONIN, DEFINED THE 99TH PERCENTILE OF cTnI DISTRIBUTION IN A REFERENCE POPULATION, HAS BEEN CONFIRMED THE DECISION THRESHOLD FOR IA DIAGNOSIS. Performed By: #### O VAPE #### [facility] [address] [place] [address] Dr. Timi Prater DARREL 15 ng/mL Normal 9-[address] [facility] Comment on above: Performed By: #### O VAPE #### [facility] [address] [place] [address] Dr. Timi Prater CBC AUTO DIFFon 08-22-2022 BASO # 0.1 103/ul Normal 0.0-0.1 [facility] Comment on above: Performed By: #### C ALPOO #### [facility] [address] [place] [address] Dr. Timi Prater Basophils/100 WBC (Bld) 0.7 % Normal 0.2-2.0 [facility] Comment on above: Performed By: #### C ALPOO #### [facility] [address] [place] [address] Dr. Timi Prater EO # 0.2 103/ul Normal 0.0-0.7 [facility] Comment on above: Performed By: #### C ALPOO #### [facility] [address] [place] [address] Dr. Timi Prater Eosinophils/100 WBC (Bld) 2.7 % Normal 0.9-7.0 [facility] Comment on above: Performed By: #### C ALPOO #### [facility] [address] [place] [address] Dr. Timi Prater Erythrocyte distribution width (RBC) [Ratio] 11.9 % Normal 11.0-15.0 [facility] Comment on above: Performed By: #### C ALPOO #### [facility] [address] [place] [address] Dr. Timi Prater Hematocrit (Bld) [Volume fraction] 39.0 % Normal 36.0-48.[address] [facility] Comment on above: Performed By: #### C ALPOO #### [facility] [address] [place] [address] Dr. Timi Prater Hemoglobin (Bld) [Mass/Vol] 13.3 g/dL Normal 12.0-16.[address] [facility] Comment on above: Performed By: #### C ALPOO #### [facility] [address] [place] [address] Dr. Timi Prater IG # 0.02 10e3/ul Normal 0.00-0.03 [facility] Comment on above: Performed By: #### C ALPOO #### [facility] [facility] [address] [place] [address] Dr. Timi Prater IG % 0.2 % Normal 0.0-0.5 [facility] Comment on above: Performed By: #### C ALPOO #### [facility] [address] [place] [address] Dr. Timi Prater LYMPH # 3.7 103/ul Normal 1.2-3.8 [facility] Comment on above: Performed By: #### C ALPOO #### [facility] [address] [place] [address] Dr. Timi Prater Lymphocytes/100 WBC (Bld) 43.6 % Normal 20.5-60.0 [facility] Comment on above: Performed By: #### C ALPOO #### [facility] [address] [place] [address] Dr. Timi Prater MANUAL DIFF REQ NO Normal [facility] Comment on above: Performed By: #### C ALPOO #### [facility] [address] [place] [address] Dr. Timi Prater MCH (RBC) [Entitic mass] 31.7 pg Normal 26.7-34.0 [facility] Comment on above: Performed By: #### C ALPOO #### [facility] [address] [place] [address] Dr. Timi Prater MCHC (RBC) [Mass/Vol] 34.1 g/dL Normal 29.9-35.2 [facility] Comment on above: Performed By: #### C ALPOO #### [facility] [address] [place] [address] Dr. Timi Prater MCV (RBC) [Entitic vol] 93.1 fL Normal 81.0-99.0 [facility] Comment on above: Performed By: #### C ALPOO #### [facility] [address] [address] [address] Timi Prater MONO # 0.8 103/ul Normal 0.3-0.8 [facility] Comment on above: Performed By: #### C ALPOO #### [facility] [address] [address] [address] Timi Prater Monocytes/100 WBC (Bld) 8.9 % Normal 1.7-12.[address] [facility] Comment on above: Performed By: #### C ALPOO #### [facility] [address] [address] [address] Timi Prater NEUT # 3.8 103/ul Normal 1.4-6.5 [facility] Comment on above: Performed By: #### C ALPOO #### [facility] [address] [place] [address] Dr. Timi Prater Neutrophils/100 WBC (Bld) 43.9 % Normal 43.0-75.[address] [facility] Comment on above: Performed By: #### C ALPOO #### [facility] [address] [place] [address] Dr. Timi Prater Platelet mean volume (Bld) [Entitic vol] 11.1 fL Normal 9.5-13.5 [facility] Comment on above: Performed By: #### C ALPOO #### [facility] [address] [place] [address] Dr. Timi Prater PLT 218 103/ul Normal 150-[address] [facility] Comment on above: Performed By: #### C ALPOO #### [facility] [address] [place] [address] Dr. Timi Prater RBC 4.19 106/ul Critically low 4.20-5.40 [facility] Comment on above: Performed By: #### C ALPOO #### [facility] [address] [place] [address] Dr. Timi Prater WBC 8.6 103/ul Normal 4.0-11.[address] [facility] Comment on above: Performed By: #### C ALPOO #### [facility] [address] [place] [address] Dr. Timi Prater PROF 14(COMP METB)on 023 Albumin [Mass/Vol] 4.2 g/dL Normal 3.4-5.0 [facility] Comment on above: Performed By: #### O VAPE #### [facility] [address] [place] [address] Dr. Timi Prater Albumin/Globulin [Mass ratio] 1.3 {ratio} Normal [facility] Comment on above: Performed By: #### O VAPE #### [facility] [address] [place] [address] Dr. Timi Prater ALP [Catalytic activity/Vol] 50 U/L Normal 46-116 [facility] Comment on above: Performed By: #### O VAPE #### [facility] [address] [place] [address] Dr. Timi Prater ALT [Catalytic activity/Vol] 13 U/L Critically low 14-59 [facility] Comment on above: Performed By: #### O VAPE #### [facility] [address] [place] [address] Dr. Timi Prater Anion gap [Moles/Vol] 13.8 mmol/L Normal [facility] Comment on above: Performed By: #### O VAPE #### [facility] [address] [place] [address] Dr. Timi Prater AST [Catalytic activity/Vol] 14 U/L Critically low 15-37 [facility] Comment on above: Performed By: #### O VAPE #### [facility] [address] [place] [address] Dr. Timi Prater Bilirubin [Mass/Vol] 0.4 mg/dL Normal 0.2-1.0 [facility] Comment on above: Performed By: #### O VAPE #### [facility] [address] [place] [address] Dr. Timi Prater Calcium [Mass/Vol] 9.2 mg/dL Normal 8.5-10.1 [facility] Comment on above: Performed By: #### O VAPE #### [facility] [address] [address] [address] Timi Prater Chloride [Moles/Vol] 102 mmol/L Normal 98-[address] [facility] Comment on above: Performed By: #### O VAPE #### [facility] [address] [place] [address] Dr. Timi Prater CO2 [Moles/Vol] 26.9 mmol/L Normal 21.0-32.0 [facility] Comment on above: Performed By: #### O VAPE #### [facility] [address] [place] [address] Dr. Timi Prater Creatinine [Mass/Vol] 0.73 mg/dL Normal 0.55-1.02 [facility] Comment on above: Performed By: #### O VAPE #### [facility] [address] [place] [address] Dr. Timi Prater EGFR-AF GUATEMALAN >60 Normal >=60 [facility] Comment on above: Performed By: #### O VAPE #### [facility] [address] [place] [address] Dr. Timi Prater EGFR-NON AF GUATEMALAN >60 Normal >=60 [facility] Comment on above: Performed By: #### O VAPE #### [facility] [address] [place] [address] Dr. Timi Prater Globulin (S) [Mass/Vol] 3.3 g/dL Normal [facility] Comment on above: Performed By: #### O VAPE #### [facility] [address] [address] [address] Timi Prater Glucose [Mass/Vol] 107 mg/dL Critically high 74-106 [facility] Comment on above: Performed By: #### O VAPE #### [facility] [address] [place] [address] Dr. Timi Prater Potassium [Moles/Vol] 3.7 mmol/L Normal 3.5-5.[address] [facility] Comment on above: Performed By: #### O VAPE #### [facility] [address] [place] [address] Dr. Timi Prater Protein [Mass/Vol] 7.5 g/dL Normal 6.4-8.2 [facility] Comment on above: Performed By: #### O VAPE #### [facility] [address] [address] [address] Timi Prater Sodium [Moles/Vol] 139 mmol/L Normal 136-145 [facility] Comment on above: Performed By: #### O VAPE #### [facility] [address] [address] [address] Timi Prater Urea nitrogen [Mass/Vol] 14.0 mg/dL Normal 7.0-18.0 [facility] Comment on above: Performed By: #### O VAPE #### [facility] [address] [address] [address] Timi Prater Urea nitrogen/Creatinine [Mass ratio] 19.2 mg/mg Normal [facility] Comment on above: Performed By: #### O VAPE #### [facility] [address] [place] [address] Dr. Timi Prater PAP ACOG PANEL 2: 21 to 29on 08-21-2022 . . Normal [facility] Comment on above: Performed By: #### O VAPE #### [facility] [address] [place] [address] Dr. Timi Prater Age Gdln ACOG Testing 21-29 Normal [facility] Comment on above: Performed By: #### O VAPE #### [facility] [address] [place] [address] Dr. Timi Prater DIAGNOSIS: Comment Abnormal [facility] Comment on above: Result Comment: EPIT HELIAL CELL ABNORMALITY. ATYPICAL SQUAMOUS CELLS OF UNDETERMINED SIGNIFICANCE (ASC-US). Performed By: #### O VAPE #### [facility] [address] [place] [address] Dr. Timi Prater Electronically signed by: Comment Normal [facility] Comment on above: Result Comment: Eloise Segal MD, Pathologist Performed By: #### O VAPE #### [facility] [address] [place] [address] Dr. Timi Prater HPV Aptima Negative Normal Negative [facility] Comment on above: Result Comment: This nucleic acid amplification test detects fourteen high-risk HPV types (16,18,31,33,35,39,45,51,52,56,58,59,66,68) without differentiation. Performed By: #### O VAPE #### [facility] [address] [address] [address] Timi Prater Methodology: Comment Normal [facility] Comment on above: Result Comment: This liquid based ThinPrep(R) pap test was screened with the use of an image guided system. Performed By: #### O VAPE #### [facility] [address] [address] [address] Timi Prater Note: Comment Normal [facility] Comment on above: Result Comment: The Pap smear is a screening test designed to aid in the detection of premalignant and malignant conditions of the uterine cervix. It is not a diagnostic procedure and should not be used as the sole means of detecting cervical cancer. Both false-positive and false-negative reports do occur. . Performed By: #### O VAPE #### [facility] [address] [place] [address] Dr. Timi Prater Pathologist Provided ICD10 Comment Normal [facility] Comment on above: Result Comment: R87. 610 Performed By: #### O VAPE #### [facility] [address] [place] [address] Dr. Timi Prater Performed by: Comment Normal [facility] Comment on above: Result Comment: Lizet Holguin, Windshield Technician (ASCP) Performed By: #### O VAPE #### [facility] [address] [address] [address] Timi Prater Recommendation: Comment Abnormal [facility] Comment on above: Result Comment: Sugg est follow up as clinically appropriate. Performed By: #### O VAPE #### [facility] [address] [address] [address] Timi Prater Reflex Criteria: Comment Normal [facility] Comment on above: Result Comment: See below for HPV testing results. . Performed By: #### O VAPE #### [facility] [address] [place], [place] [address] Dr. Timi Prater Specimen adequacy: Comment Normal [facility] Comment on above: Result Comment: Sati sfactory for evaluation. Endocervical and/or squamous metaplastic cells (endocervical component) are present. Performed By: #### O VAPE #### [facility] [address] [place], [place] [address] Dr. Timi Prater HPon 08-15-2022 HP H&P reviewed. The shelby marx was examined and there are no changes to the H&P. Normal [facility] Orders Onlyon 08-08-2022 Orders Only [id number] Rosa Alonzo 2000 F Date Provider Department Center 08/08/20222030-ROSHAN AVITIA [facility] No family history on file Normal [facility] 29on 08-02-2022 29 Addended by: CELY NELSON on: 08/04/2022 03:16 AM Modules accepted: [facility] ----- ----- Attestation signed by Cely Nelson MD at 08/04/2022 3:16 AM I personally saw the patient on the day of the encounter, performed the murray portion(s) of the service and participated in the management and confirm the Nurse practitioner's documentation. 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 ----- [facility] Gastroenterology Follow-Up Patient Visit [...] and normal (more content not included)... Normal [facility] Office Visiton 08-02-2022 Follow-up visit [id number] Rosa Alonzo 2000 F Date Provider Department Center 08/02/2022 CELY CHAHAL [facility] No family history on file Level of Service:98964 [place] OFFICE/OUTPATIENT ESTABLISHED MOD MDM 30-39 MIN Reason for Visit and Comments: f/u c diff [Other] Normal [facility] C. DIFF PCRon 07-27-2022 C. DIFFICILE PCR Positive Critically abnormal NEGATIVE [facility] Comment on above: Performed By: #### T HYRABS #### [facility] [address] [place] [address] Dr. Timi Prater C. DIFF PCRon 07-13-2022 C. DIFFICILE PCR Negative Normal NEGATIVE [facility] Comment on above: Performed By: #### C DIFPOC #### [facility] [address] [place] [address] Dr. Timi Prater US SINGLE QUAD RT [...] DARA HUMPHREY Date: 2022-05-11 17:[address] [facility] FECAL FAT QUANTITATIVEon Fecal Weight (Total) 233 g Normal [facility] Comment on above: Performed By: #### C ALPOO #### [facility] [address] [place] [address] Dr. Timi Prater Fecal, (Fecal Lipids)Qn 1.3 g/24 hr Normal 0.0-7.1 [facility] Comment on above: Result Comment: This value is based on a 72 hour stool collection. Performed By: #### C ALPOO #### [facility] [address] [address] [address] Timi Prater LACTOFERRIN FECAL QUANTon Lactoferrin, Fecal, Quant. <1.00 Normal 0.00-7.24 [facility] Comment on above: Result Comment: [...] (IBS). Performed By: #### C ALPOO #### [facility] [address] [place] [address] Dr. Timi Prater PANCREATIC ELASTASE FECALon 05-05-2022 Pancreatic Elastase, Fecal 369 ug Elast./g Normal >[address] [facility] Comment on above: Result Comment: Tia re Pancreatic Insufficiency: <100 Moderate Pancreatic Insufficiency: 100 - 200 Normal: >200 Performed By: #### T HYRABS #### [facility] [address] [place] [address] Dr. Timi Prater C. DIFF PCRon 04-17-2022 C. DIFFICILE PCR Negative Normal NEGATIVE [facility] Comment on above: Performed By: #### O VAPE #### [facility] [address] [place] [address] Dr. Timi Prater Abstracton 04-01-2022 Abstract [id number] David Henao y 2000 F Date Provider Department Center 04/01/2022 REYNA RODRIGUEZ [facility] No family history on file Normal [facility] GI PANEL (PCR)on 03-17-2022 Adenovirus F 40/41 Not detected Normal NOT DETECTED [facility] Comment on above: Performed By: #### G IPANEL #### [facility] [address] [place] [address] Dr. Timi Prater Astrovirus Not detected Normal NOT DETECTED [facility] Comment on above: Performed By: #### G IPANEL #### [facility] [address] [place] [address] Dr. Timi Prater C. Diff toxin A/B Not detected Normal NOT DETECTED [facility] Comment on above: Performed By: #### G IPANEL #### [facility] [address] [place] [address] Dr. Timi rPater Campylobacter Not detected Normal NOT DETECTED [facility] Comment on above: Performed By: #### G IPANEL #### [facility] [address] [place] [address] Dr. Timi Prater Cryptosporidium Not detected Normal NOT DETECTED [facility] Comment on above: Performed By: #### G IPANEL #### [facility] [address] [place] [address] Dr. Timi Prater Cyclos. Cayetanensis Not detected Normal NOT DETECTED [facility] Comment on above: Performed By: #### G IPANEL #### [facility] [address] [place] [address] Dr. Timi Prater E. Coli O157 Not Applicable Normal Not Applicable [facility] Comment on above: Performed By: #### G IPANEL #### [facility] [address] [place] [address] Dr. Timi Prater E. histolytica Not detected Normal NOT DETECTED [facility] Comment on above: Performed By: #### G IPANEL #### [facility] [address] [place] [address] Dr. Timi Prater EAEC Not detected Normal NOT DETECTED [facility] Comment on above: Performed By: #### G IPANEL #### [facility] [address] [place] [address] Dr. Timi Prater EIEC Not detected Normal NOT DETECTED [facility] Comment on above: Performed By: #### G IPANEL #### [facility] [address] [place] [address] Dr. Timi Prater EPEC Not detected Normal NOT DETECTED [facility] Comment on above: Performed By: #### G IPANEL #### [facility] [address] [address] [address] Timi Prater ETEC Not detected Normal NOT DETECTED [facility] Comment on above: Performed By: #### G IPANEL #### [facility] [address] [address] [address] Timi Laura Lamblia Not detected Normal NOT DETECTED [facility] Comment on above: Performed By: #### G IPANEL #### [facility] [address] [address] [address] Timi WHARTON CONTROLS PASSED Normal [facility] Comment on above: Performed By: #### G IPANEL #### [facility] [address] [address] [address] Timi HOWARD HEADER GI PANEL BACTERIA Normal [facility] Comment on above: Performed By: #### G IPANEL #### [facility] [address] [place] [address] Dr. Timi FAJARDO ECOLI GI PANEL DIARRHEAGEN IC E.COLI / SHIGELLA Normal [facility] Comment on above: Performed By: #### G IPANEL #### [facility] [address] [place] [address] Dr. Timi FAJARDO INFO SEE BELOW Normal [facility] Comment on above: Result Comment: EAEC - Enteroaggregative E. Coli EPEC- Enteropathogenic E. Coli ETEC- Enterotoxigenic E. Coli lt/st STEC- Shigella-like toxin-producing E. Coli stx1/stx2 EIEC- Shigella/Enteroinvasive E. Coli Performed By: #### G IPANEL #### [facility] [address] [place] [address] Dr. Timi FAJARDO PARASITES GI PANEL PARASITES Normal [facility] Comment on above: Performed By: #### G IPANEL #### [facility] [address] [place] [address] Dr. Timi FAJARDO VIRUS GI PANEL VIRUSES Normal [facility] Comment on above: Performed By: #### G IPANEL #### [facility] [address] [place] [address] Dr. Timi Prater Norovirus GI/GII Not detected Normal NOT DETECTED [facility] Comment on above: Performed By: #### G IPANEL #### [facility] [address] [place] [address] Dr. Timi Prater P. Shigelloides Not detected Normal NOT DETECTED [facility] Comment on above: Performed By: #### G IPANEL #### [facility] [address] [place] [address] Dr. Timi Prater Rotavirus A Not detected Normal NOT DETECTED [facility] Comment on above: Performed By: #### G IPANEL #### [facility] [address] [place] [address] Dr. Timi Prater Salmonella Not detected Normal NOT DETECTED [facility] Comment on above: Performed By: #### G IPANEL #### [facility] [address] [place] [address] Dr. Timi Prater Sapovirus Not detected Normal NOT DETECTED [facility] Comment on above: Performed By: #### G IPANEL #### [facility] [address] [place] [address] Dr. Timi Prater STEC Not detected Normal NOT DETECTED [facility] Comment on above: Performed By: #### G IPANEL #### [facility] [address] [place] [address] Dr. Timi Prater Vibrio Not detected Normal NOT DETECTED [facility] Comment on above: Performed By: #### G IPANEL #### [facility] [address] [place] [address] Dr. Timi Prater Vibrio Cholera Not detected Normal NOT DETECTED [facility] Comment on above: Performed By: #### G IPANEL #### [facility] [address] [place] [address] Dr. Timi Prater Y. Enterocolitica Not detected Normal NOT DETECTED [facility] Comment on above: Performed By: #### G IPANEL #### [facility] [address] [place] [address] Dr. Timi Prater STOOL CULTUREon 03-01-2022 Campylobacter Culture Final report Normal [facility] Comment on above: Performed By: #### C XSTOOL #### [facility] [address] [address] [address] Timi Prater E coli Shiga Toxin EIA Negative Normal Negative [facility] Comment on above: Performed By: #### C XSTOOL #### [facility] [address] [address] [address] Timi Prater Result 1 Comment Normal [facility] Comment on above: Result Comment: No S almonella or Shigella recovered. Performed By: #### C XSTOOL #### [facility] [address] [address] [address] Timi Prater Result Comment: No C ampylobacter species isolated. Salmonella/Shigella Screen Final report Normal [facility] Comment on above: Performed By: #### C XSTOOL #### [facility] [address] [address] [address] Timi Prater CLOSTRIDIUM DIFFICILE PCRon 02-03-2022 C difficile Toxin Gene RUCHI Negative Normal Negative [facility] Comment on above: Performed By: #### C DIFPOC #### [facility] [address] [address] [address] Timi Prater C. DIFF PCRon 01-14-2022 C. DIFFICILE PCR Negative Normal NEGATIVE [facility] Comment on above: Performed By: #### C ALPOO #### [facility] [address] [address] [address] Timi Prater Endoscopy Reporton 2 Endoscopy Report MR#: [id number] [facility] Pt. Name: Rosa Henao Surgery Date: 12/29/2021 Room #: Z0 Date of : 2000 PROCEDURE NOTE ATTENDING: Zenon Huggins MD PROCEDURE: Colonoscopy with FMT. INDICATION FOR PROCEDURE: Recurrent C diff. TYPE OF ANESTHESIA: Conscious sedation, 6 mg of Versed, 150 mcg of fentanyl, and 25 mg of Benadryl. 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 QUALITY OF THE [...] it was withdrawn. Date Dict: 12/29/2021/12:24 P/Darren aBig MD Date Trans: 12/30/2021 03:17 A/tamika [id number] cc: Colby Augustin M.D. [address] [id number] Normal [facility] POC SARS COV2 IDon 2 SARS-CoV-2 (COVID-19) RNA RUCHI+probe Ql (Unsp spec) Negative Normal NEGATIVE [facility] Comment on above: Result Comment: [...] Performed By: #### 3 1921 #### [facility] [address] [facility] POC URINE PREGNANCYon 2021 Beta HCG ( test) Ql (U) Negative Normal NEGATIVE [facility] Comment on above: Result Comment: Perf ormed in PACU Performed By: #### 8 [id number] #### [facility] [address] [facility] General Surgery Office/Clini c Noteon 07-08-2021 [...] Family History Cancer: Father. Stroke: Mother. Normal [facility] Comment on above: Result Comment: Elec tronically Signed By: KALEB MACKEY, Ana Lan\Date and Time Signed: 07/08/21 16:21 EST Pathology Noteon 07-04-2021 Pathology Note [id number]#1.00CD:12 7 [facility] Operative Reporton Operative Report [id number]#1.00CD:127 Normal [facility] Lab Reportson 06-27-2021 Lab Reports [id number]#1.00CD:12 7 Normal [facility] Consent for Procedure/Surger yon 06-22-2021 Consent for Procedure/Surgery [id number]#1.00CD:12 7 Normal [facility] Provider Letter [facility] [facility] June 22, 2021 Colyb Lexie, [address] [facility] [place] [address] Re: ROSA HENAO Date of : 2000 Thank you for your referral of Rosa Henao who was seen on consultation on 06/21/2021 for daily nausea with abdominal cramping. An EGD is planned for further evaluation. I have enclosed my consultation note for your review. I will be happy to follow Rosa. Sincerely, Ana De La Cruz MD General Surgery [facility] Ambulatory Clinical Summaryo n 06-21-2021 Ambulatory Clinical Summary {[id number] [facility] Physician Referralon 021 Physician Referral [id number]:12 7 [facility] COVID Quick Testingon 2020 Result Negative [employer] Other S. pyogenes Ag Ql (Throat)on 05-05-2021 S. pyogenes Org specific cx Ql (Throat) Negative [employer] Other Ambulatory Clinical Summaryo n 01-04-2021 Ambulatory Clinical Summary {[id number] D:[id number] [facility] General Surgery Office/Clini c Noteon [...] 01/04/2021 Family History Cancer: Father. Stroke: Mother. [facility] Comment on above: Result Comment: Elec tronically Signed By: KALEB MACKEY, Ana Lan\Date and Time Signed: 01/04/21 14:32 EDT Pathology Noteon 01-01-2021 Pathology Note [id number]:1 27 [facility] Outside Colonoscopyon 2020 Outside Colonoscopy [id number]:1 27 [facility] Lab Reportson 12-29-2020 Lab Reports [id number]:12 7 [facility] Consent for Procedure/Surger yon 12-08-2020 Consent for Procedure/Surgery [id number]:12 7 [facility] Provider Letter FTMCon 12-08 Provider Letter [facility] (Inserted Image. Un able to display) Colby [place], [address] [facility] [place] [address] [place] [address] Re: ROSA HENAO Date of : 2000 [...] De La Cruz MD General Surgery [facility] Ambulatory Clinical Summaryo n 12-07-2020 Ambulatory Clinical Summary {[id number] D:[id number] [facility] Patient Educationon 12-08-19 Patient Education Preventive Health [...] Yard work, such as: ? Pushing a wirer maintenance. ? Raking and bagging leaves. ? Washing [...] 08/11/2011 Document Revised: 06/21/2018 Document Reviewed: 05/30/2018 [employer] Patient Education ? 2020 [employer] Radiology Colonoscopy, Adult A colonoscopy is [...] have certain (more content not included)... [facility] Physician Referralon 021 Physician Referral [id number]:12 7 [facility] No Panel Informationon 12-02 [facility] Vital Signs Date Time Vital Sign Value Performing Clinician Facility 07-03-2024 11:56-0500 Body mass index (BMI) [Ratio] 19.91 kg/m2 Jeremiah Burroughs DO Work Phone: [facility] 07-03-2024 11:56-0500 Body weight 52.62 kg Jeremiah Canoo DO Work Phone: [facility] 07-03-2024 11:56-0500 Diastolic blood pressure 60 mm[Hg] Jeremiah Heike DO Work Phone: [facility] 07-03-2024 11:56-0500 Systolic blood pressure 108 mm[Hg] Jeremiah Canoo DO Work Phone: [facility] 04-30-2024 10:38-0400 Body height 162.6 cm Zenon Pretty MD Work Phone: [facility] 04-30-2024 10:38-0400 Body mass index (BMI) [Ratio] 18.88 kg/m2 Zenon Pretty MD Work Phone: [facility] 04-30-2024 10:38-0400 Body weight 49.9 kg Zenon Pretty MD Work Phone: [facility] 04-30-2024 10:38-0400 Diastolic blood pressure 74 mm[Hg] Zenon Pretty MD Work Phone: [facility] 04-30-2024 10:38-0400 Heart rate 86 /min Zenon Pretty MD Work Phone: [facility] 04-30-2024 10:38-0400 Respiratory rate 18 /min Zenon Pretty MD Work Phone: [facility] 04-30-2024 10:38-0400 Systolic blood pressure 108 mm[Hg] Zenon Pretty MD Work Phone: [facility] 04-16-2024 10:51-0400 Diastolic blood pressure 64 mm[Hg] Whitney Ambriz MD MPH Work Phone: [facility] 04-16-2024 10:51-0400 Heart rate 68 /min Whitney Ambriz MD MPH Work Phone: [facility] 04-16-2024 10:51-0400 Respiratory rate 18 /min Whitney Ambriz MD MPH Work Phone: [facility] 04-16-2024 10:51-0400 SaO2% (BldA) [Mass fraction] 100 % Whitney Ambriz MD MPH Work Phone: [facility] 04-16-2024 10:51-0400 Systolic blood pressure 98 mm[Hg] Whitney Ambriz MD MPH Work Phone: [facility] 04-16-2024 10:21-0400 Body temperature 97.2 [degF] Whitney Ambriz MD MPH Work Phone: [facility] 04-16-2024 08:23-0400 Body height 162.6 cm Whitney Ambriz MD MPH Work Phone: [facility] 04-16-2024 08:23-0400 Body mass index (BMI) [Ratio] 19.74 kg/m2 Whitney Ambriz MD MPH Work Phone: [facility] 04-16-2024 08:23-0400 Body weight 52.16 kg Whitney Ambriz MD MPH Work Phone: [facility] 03-26-2024 10:52-0400 Body height 162.6 cm Zenon Pretty MD Work Phone: [facility] 03-26-2024 10:52-0400 Body mass index (BMI) [Ratio] 18.88 kg/m2 Zenon Pretty MD Work Phone: [facility] 03-26-2024 10:52-0400 Body weight 49.9 kg Zenon Pretty MD Work Phone: [facility] 03-26-2024 10:52-0400 Diastolic blood pressure 67 mm[Hg] Zenon Pretty MD Work Phone: [facility] 03-26-2024 10:52-0400 Heart rate 81 /min Zenon Pretty MD Work Phone: [facility] 03-26-2024 10:52-0400 Respiratory rate 16 /min Zenon Pretty MD Work Phone: [facility] 03-26-2024 10:52-0400 Systolic blood pressure 110 mm[Hg] Zenon Pretty MD Work Phone: [facility] 03-19-2024 13:20-0400 Body height 162.56 cm DO Ana Bolton Work Phone: [facility] 03-19-2024 13:20-0400 Body mass index (BMI) [Ratio] 19.2 kg/m2 DO Ana Bookers Work Phone: [facility] 03-19-2024 13:20-0400 Body weight 50.8 kg DO Ana Bookers Work Phone: [facility] 03-19-2024 13:20-0400 Diastolic blood pressure 60 mm[Hg] DO Ana Bookers Work Phone: [facility] 03-19-2024 13:20-0400 Heart rate 78 /min DO Ana Bolton Work Phone: [facility] 03-19-2024 13:20-0400 SaO2% (BldA) [Mass fraction] 99 % DO Ana Bolton Work Phone: [facility] 03-19-2024 13:20-0400 Systolic blood pressure 94 mm[Hg] DO Ana Bolton Work Phone: [facility] 03-05-2024 14:15-0400 Body mass index (BMI) [Ratio] 18.19 kg/m2 Whitney Ambriz MD MPH Work Phone: [facility] 03-05-2024 14:15-0400 Body weight 48.08 kg Whitney Ambriz MD MPH Work Phone: [facility] 03-05-2024 14:15-0400 Diastolic blood pressure 71 mm[Hg] Whitney Ambriz MD MPH Work Phone: [facility] 03-05-2024 14:15-0400 Heart rate 97 /min Whitney Ambriz MD MPH Work Phone: [facility] 03-05-2024 14:15-0400 Systolic blood pressure 111 mm[Hg] Whitney Ambriz MD MPH Work Phone: [facility] 02-26-2024 15:21-0400 Body height 162.6 cm Bola Braden MD Work Phone: [facility] 02-26-2024 15:21-0400 Body mass index (BMI) [Ratio] 19.38 kg/m2 Bola Braden MD Work Phone: [facility] 02-26-2024 15:21-0400 Body temperature 98.2 [degF] Bola Braden MD Work Phone: [facility] 02-26-2024 15:21-0400 Body weight 51.26 kg Bola Braedn MD Work Phone: [facility] 02-26-2024 15:21-0400 Diastolic blood pressure 68 mm[Hg] Bola Braden MD Work Phone: [facility] 02-26-2024 15:21-0400 Heart rate 65 /min Bola Braden MD Work Phone: [facility] 02-26-2024 15:21-0400 Systolic blood pressure 117 mm[Hg] Bola Braden MD Work Phone: [facility] 02-05-2024 14:42-0400 Body height 162.6 cm Dane Merida MD Work Phone: [facility] 02-05-2024 14:42-0400 Body mass index (BMI) [Ratio] 19.14 kg/m2 Dane Merida MD Work Phone: [facility] 02-05-2024 14:42-0400 Body weight 50.58 kg Dane Merida MD Work Phone: [facility] 02-05-2024 14:42-0400 Diastolic blood pressure 71 mm[Hg] Dane Merida MD Work Phone: [facility] 02-05-2024 14:42-0400 Heart rate 77 /min Dane Merida MD Work Phone: [facility] 02-05-2024 14:42-0400 Respiratory rate 18 /min Dane Merida MD Work Phone: [facility] 02-05-2024 14:42-0400 Systolic blood pressure 117 mm[Hg] Dane Merida MD Work Phone: [facility] 12-05-2023 13:45-0400 Body height 162.6 cm Ariella Mccoy APRN.SITE PLANNER Work Phone: [facility] 12-05-2023 13:45-0400 Body mass index (BMI) [Ratio] 19.22 kg/m2 Ariella Mccoy APRN.SITE PLANNER Work Phone: [facility] 12-05-2023 13:45-0400 Body temperature 98.01 [degF] Ariella Mccoy APRN.SITE PLANNER Work Phone: [facility] 12-05-2023 13:45-0400 Body weight 50.8 kg Ariella Mccoy APRN.SITE PLANNER Work Phone: [facility] 12-05-2023 13:45-0400 Diastolic blood pressure 64 mm[Hg] Ariella Mccoy APRN.SITE PLANNER Work Phone: [facility] 12-05-2023 13:45-0400 Heart rate 90 /min Ariella Mccoy APRN.SITE PLANNER Work Phone: [facility] 12-05-2023 13:45-0400 SaO2% (BldA) [Mass fraction] 99 % Ariella Mccoy APRN.SITE PLANNER Work Phone: [facility] 12-05-2023 13:45-0400 Systolic blood pressure 106 mm[Hg] Ariella Mccoy APRN.SITE PLANNER Work Phone: [facility] 11-29-2023 11:15-0400 Body height 162.56 cm [facility] 11-29-2023 11:15-0400 Body mass index (BMI) [Ratio] 18.7 kg/m2 [facility] 11-29-2023 11:15-0400 Body weight 49.58 kg [facility] 11-29-2023 11:15-0400 Diastolic blood pressure 60 mm[Hg] [facility] 11-29-2023 11:15-0400 Heart rate 83 /min [facility] 11-29-2023 11:15-0400 Respiratory rate 18 /min [facility] 11-29-2023 11:15-0400 SaO2% (BldA) [Mass fraction] 98 % [facility] 11-29-2023 11:15-0400 Systolic blood pressure 110 mm[Hg] [facility] 11-15-2023 14:44-0400 Body height 162.6 cm Pacc 1 Other Phone: [facility] 11-15-2023 14:44-0400 Body mass index (BMI) [Ratio] 20.06 kg/m2 Pacc 1 Other Phone: [facility] 11-15-2023 14:44-0400 Body temperature 97.11 [degF] Pacc 1 Other Phone: [facility] 11-15-2023 14:44-0400 Body weight 53 kg Pacc 1 Other Phone: [facility] 11-15-2023 14:44-0400 Diastolic blood pressure 67 mm[Hg] Pacc 1 Other Phone: [facility] 11-15-2023 14:44-0400 Heart rate 75 /min Pacc 1 Other Phone: [facility] 11-15-2023 14:44-0400 Respiratory rate 18 /min Pacc 1 Other Phone: [facility] 11-15-2023 14:44-0400 SaO2% (BldA) [Mass fraction] 100 % Pacc 1 Other Phone: [facility] 11-15-2023 14:44-0400 Systolic blood pressure 110 mm[Hg] Pacc 1 Other Phone: [facility] 10-22-2023 14:44-0400 Body height 162.6 cm Sedrick Rushing MD Work Phone: [facility] 10-22-2023 14:44-0400 Body weight 52.62 kg Sedrick Rushing MD Work Phone: [facility] 10-22-2023 14:44-0400 Diastolic blood pressure 62 mm[Hg] Sedrick Rushing MD Work Phone: [facility] 10-22-2023 14:44-0400 Heart rate 40 /min Sedrick Rushing MD Work Phone: [facility] 10-22-2023 14:44-0400 Systolic blood pressure 102 mm[Hg] Sedrick Rushing MD Work Phone: [facility] 09-06-2023 14:00-0500 Heart rate 68 /min Isabelle Menon MD Work Phone: [facility] 09-06-2023 14:00-0500 Respiratory rate 22 /min Isabelle Menon MD Work Phone: [facility] 09-06-2023 14:00-0500 SaO2% (BldA) [Mass fraction] 100 % Isabelle Menon MD Work Phone: [facility] 09-06-2023 13:45-0500 Diastolic blood pressure 76 mm[Hg] Isabelle Menon MD Work Phone: [facility] 09-06-2023 13:45-0500 Systolic blood pressure 101 mm[Hg] Isabelle Menon MD Work Phone: [facility] 09-06-2023 13:27-0500 Body temperature 97.2 [degF] Isabelle Menon MD Work Phone: [facility] 06-06-2023 11:42-0500 Body weight 51.26 kg Isabelle Menon MD Work Phone: [facility] 06-06-2023 11:42-0500 Diastolic blood pressure 71 mm[Hg] Isabelle Menon MD Work Phone: [facility] 06-06-2023 11:42-0500 Heart rate 87 /min Isabelle Menon MD Work Phone: [facility] 06-06-2023 11:42-0500 Systolic blood pressure 104 mm[Hg] Isabelle Menon MD Work Phone: [facility] 05-24-2023 11:30-0400 Body height 162.56 cm Analia Holliday Other [employer] Other 05-24-2023 11:30-0400 Body mass index (BMI) [Ratio] 20.48 kg/m2 Analia Holliday Other [employer] Other 05-24-2023 11:30-0400 Body weight 54.11 kg Analia Holliday Other [employer] Other 05-24-2023 11:30-0400 Diastolic blood pressure 60 mm[Hg] Analia Holliday Other [employer] Other 05-24-2023 11:30-0400 Respiratory rate 18 /min Analia Holliday Other [employer] Other 05-24-2023 11:30-0400 SaO2% (BldA) [Mass fraction] 99 % Analia Holliday Other [employer] Other 05-24-2023 11:30-0400 Systolic blood pressure 100 mm[Hg] Analia Holliday Other [employer] Other 05-22-2023 11:10-0400 Body height 162.6 cm Dara Butler Jr., DO Work Phone: [facility] 05-22-2023 11:10-0400 Body weight 52.3 kg Dara Butler Jr., DO Work Phone: [facility] 02-06-2023 10:10-0400 Body height 162.6 cm Dara Butler Jr., DO Work Phone: [facility] 02-06-2023 10:10-0400 Body weight 51.26 kg Dara Aleksadi Mak, DO Work Phone: [facility] 02-06-2023 10:10-0400 Diastolic blood pressure 67 mm[Hg] Dara Aleksadi Mak, DO Work Phone: [facility] 02-06-2023 10:10-0400 Heart rate 67 /min Dara Aleksadi Mak, DO Work Phone: [facility] 02-06-2023 10:10-0400 SaO2% (BldA) [Mass fraction] 100 % Dara Aleksadi Mak, DO Work Phone: [facility] 02-06-2023 10:10-0400 Systolic blood pressure 101 mm[Hg] Dara Butler Jr., DO Work Phone: [facility] 11-22-2022 10:00-0400 Body height 162.56 cm Silvano Reyez Other [employer] Other 11-22-2022 10:00-0400 Body mass index (BMI) [Ratio] 19.91 kg/m2 Silvano Reyez Other [employer] Other 11-22-2022 10:00-0400 Body weight 52.62 kg Silvano Reyez Other [employer] Other 11-22-2022 10:00-0400 Diastolic blood pressure 65 mm[Hg] Silvano Reyez Other [employer] Other 11-22-2022 10:00-0400 Systolic blood pressure 112 mm[Hg] Silvano Reyez Other [employer] Other 04-27-2022 14:30-0400 Body height 162.56 cm Jaya Parikh Other [facility] Other 04-27-2022 14:30-0400 Body mass index (BMI) [Ratio] 19.74 kg/m2 Jaya Parikh Other [facility] Other 04-27-2022 14:30-0400 Body weight 52.16 kg Jaya Parikh Other [facility] Other 03-15-2022 15:29-0400 Body height 162.6 cm Phani Presley MD Work Phone: [facility] 03-15-2022 15:29-0400 Body mass index (BMI) [Ratio] 19.6 kg/m2 Phani Presley MD Work Phone: [facility] 03-15-2022 15:29-0400 Body weight 51.8 kg Phani Presley MD Work Phone: [facility] 03-15-2022 15:29-0400 Diastolic blood pressure 60 mm[Hg] Phani Presley MD Work Phone: [facility] 03-15-2022 15:29-0400 Heart rate 74 /min Phani Presley MD Work Phone: [facility] 03-15-2022 15:29-0400 Respiratory rate 18 /min Phani Presley MD Work Phone: [facility] 03-15-2022 15:29-0400 SaO2% (BldA) [Mass fraction] 99 % Phani Presley MD Work Phone: [facility] 03-15-2022 15:29-0400 Systolic blood pressure 100 mm[Hg] Phani Presley MD Work Phone: [facility] 09-27-2021 12:00-0500 Body height 162.56 cm Jaya Parikh Other [employer] Other 09-27-2021 12:00-0500 Body mass index (BMI) [Ratio] 19.74 kg/m2 Jaya Parikh Other [employer] Other 09-27-2021 12:00-0500 Body weight 52.16 kg Jaya Parikh Other [employer] Other 09-27-2021 12:00-0500 Diastolic blood pressure 74 mm[Hg] Jaya Parikh Other [employer] Other 09-27-2021 12:00-0500 Systolic blood pressure 106 mm[Hg] Jaya Parikh Other [employer] Other 05-05-2021 10:30-0400 Body height 162.56 cm Arlene Sruthi Other [employer] Other 05-05-2021 10:30-0400 Body mass index (BMI) [Ratio] 20.6 kg/m2 Arlene Sruthi Other [employer] Other 05-05-2021 10:30-0400 Body temperature 99.1 [degF] Arlene Sruthi Other [employer] Other 05-05-2021 10:30-0400 Body weight 54.43 kg Alrene Sruthi Other [employer] Other 05-05-2021 10:30-0400 Respiratory rate 18 /min Arlene Sruthi Other [employer] Other 05-05-2021 10:30-0400 SaO2% (BldA) [Mass fraction] 97 % Arlene Negro Other [employer] Other Encounters Encounter Date Encounter Type Care Provider Facility Start: 07-08-2024 End: 07-08-2024 Clinisync Result Encounter Jeremiah Heike DO Work Phone: [facility] Unsolicited Start: 07-08-2024 End: 07-08-2024 Clinisync Result Encounter Jeremiah Heike DO Work Phone: [facility] Unsolicited Start: 07-03-2024 End: 07-03-2024 Bamboo flowsheet Jeremiah Heike DO Work Phone: [facility] Start: 07-03-2024 End: 07-03-2024 Bamboo flowsheet Jeremiah Heike DO Work Phone: [facility] Start: 07-03-2024 End: 07-03-2024 Telephone encounter Jay Thompson MD Work Phone: Pain Management Comment on above: Appointment Start: 07-03-2024 End: 07-03-2024 Office outpatient visit 15 minutes Jeremiah Heike DO Work Phone: [facility] Comment on above: Follow-up visit afte r miscarriage Start: 07-03-2024 End: 07-03-2024 ambulatory JEREMIAH HEIKE Not Available Start: 07-01-2024 End: 07-01-2024 Patient encounter procedure Elif Rich MD Work Phone: [facility] Comment on above: Neoplasm of unspecif ied behavior of bone, soft tissue, and skin (Primary Dx) Start: 07-01-2024 End: 07-01-2024 Bamboo flowsheet Elif Rich MD Work Phone: [facility] Start: 07-01-2024 End: 07-01-2024 Bamboo flowsheet Elif Rich MD Work Phone: [facility] Start: 07-01-2024 End: 07-01-2024 ambulatory ELIF RICH Not Available Start: 06-23-2024 End: 06-23-2024 Telephone encounter Santiago Huffman MD Work Phone: Internal Medicine Comment on above: Appointment Start: 05-14-2024 End: 05-14-2024 Telephone encounter Santiago Huffman MD Work Phone: Ambulatory Surgery Comment on above: Schedule Injection Start: 04-30-2024 End: 04-30-2024 ambulatory [facility] Facility:[facility] Start: 04-30-2024 End: 04-30-2024 Patient encounter procedure Zenon Pretty MD Work Phone: Pain Management Comment on above: Right sided abdomina l pain (Primary Dx); Neuralgia and neuritis; Celiac artery compression syndrome (HCC) Start: 04-24-2024 End: 04-24-2024 Telephone encounter Isabelle Menon MD Work Phone: Gastroenterology Comment on above: Appointment (No need for OV with Dr. Menon) Start: 04-17-2024 End: 04-17-2024 Subsequent hospital visit by physician Rad External Film EF RAD EXTERNAL FILM [facility]IRTUAL Comment on above: Arrived Start: 04-16-2024 End: 04-16-2024 Subsequent hospital visit by physician Whitney Ambriz MD MPH Work Phone: [facility] Comment on above: Median arcuate ligam ent syndrome (CMS-HCC) Start: 03-26-2024 End: 03-26-2024 Patient encounter procedure Zenon Pretty MD Work Phone: Pain Management Comment on above: APPOINTMENT CANCELLE D (Primary Dx) Start: 03-26-2024 End: 03-26-2024 ambulatory [facility] Facility:[facility] Start: 03-19-2024 End: 03-19-2024 ambulatory DO Ana Bolton Work Phone: [facility] Work Phone: Start: 03-19-2024 End: 03-19-2024 Patient encounter procedure DO Ana Bolton Work Phone: [facility] Work Phone: Start: 03-13-2024 End: 03-13-2024 ambulatory ANALIA HOLLIDAY Facility:[facility] Start: 03-12-2024 End: 05-12-2024 ambulatory Dara Butler Jr., DO Work Phone: Gastroenterology Start: 03-12-2024 End: 05-12-2024 Follow-up encounter Dara Butler DO Work Phone: Gastroenterology Comment on above: Follow Up Start: 03-05-2024 End: 03-05-2024 Office outpatient new 60 minutes Whitney Ambriz MD MPH Work Phone: [facility] Comment on above: Epigastric pain (Carrie mukund Dx); Median arcuate ligament syndrome (CMS-HCC); Difficulty breathing Start: 02-26-2024 End: 02-26-2024 Patient encounter procedure Bola Braden MD Work Phone: Gastroenterology Comment on above: Epigastric pain (Carrie mukund Dx) Start: 02-26-2024 End: 02-26-2024 ambulatory ANALIA HOLLIDAY Facility:[facility] Start: 02-11-2024 ambulatory DARA BUTLER Facility: [facility] Start: 02-11-2024 End: 02-11-2024 Subsequent hospital visit by physician Gi/Gu 1 [facility] ([facility]) Work Phone: Radiology Comment on above: Upper abdominal pain [R10.10] Start: 02-05-2024 End: 02-05-2024 Office outpatient new 60 minutes Dane Merida MD Work Phone: [facility] Comment on above: Median arcuate ligam ent syndrome (CMS-HCC) (Primary Dx) Start: 02-04-2024 End: 02-04-2024 ambulatory JEREMIAH BURROUGHS Not Available Start: 01-30-2024 ambulatory DARA BUTLER Facility: [facility] Start: 01-30-2024 End: 01-30-2024 Subsequent hospital visit by physician Daryl Roberson [facility] Work Phone: [facility] Comment on above: Upper abdominal pain [R10.10] Start: 01-29-2024 Telephone encounter Evelia Harp CNM T [facility] Comment on above: Radiology [place] Start: 01-16-2024 ambulatory Isabelle Menon MD Work Phone: Gastroenterology Comment on above: EUS Start: 01-01-2024 End: 01-01-2024 ambulatory Ana Bolton [facility] Work Phone: Start: 01-01-2024 End: 01-01-2024 Departed Referred DO Ana Bolton Work Phone: [facility] Start: 12-28-2023 End: 12-28-2023 ambulatory ANALIA HOLLIDAY Facility:[facility] Start: 12-28-2023 End: 12-28-2023 Patient encounter procedure Dara Butler DO Work Phone: Gastroenterology Comment on above: Upper abdominal pain (Primary Dx); Dyspepsia and disorder of function of stomach; Dyspepsia Start: 12-27-2023 End: 12-27-2023 ambulatory ANALIA HOLLIDAY Facility:[facility] Start: 12-27-2023 Non-patient / Non-visit DO Pipe Bolton Work Phone: [facility] Work Phone: Start: 12-22-2023 ambulatory Dara Butler DO Work Phone: Gastroenterology Comment on above: Pain Start: 12-13-2023 Refill Dara Butler DO Work Phone: [facility] Comment on above: Refill Request Start: 12-05-2023 End: 12-05-2023 ambulatory NAALIA HOLLIDAY Facility:[facility] Start: 12-05-2023 End: 12-05-2023 Patient encounter procedure Ariella Mccoy [employer] Work Phone: General Surgery Comment on above: S/P gastrointestinal surgery, follow-up exam (Primary Dx); S/P laparoscopic cholecystectomy Start: 11-29-2023 End: 11-29-2023 ambulatory [facility] Work Phone: Start: 11-29-2023 End: 11-29-2023 Patient encounter procedure [facility] Shayna Work Phone: Start: 11-21-2023 End: 11-21-2023 ambulatory ANALIA HOLLIDAY Facility:[facility] Start: 11-15-2023 End: 11-16-2023 ambulatory VIKTORIA CAUSEY Facility:[facility] Start: 11-15-2023 Encounter for other preprocedural examination [facility] Start: 11-15-2023 Non-patient / Non-visit [facility] Work Phone: Start: 11-15-2023 End: 11-15-2023 Admission to establishment [address] Other Phone: Pre Anesthesia Start: 11-15-2023 End: 11-15-2023 Patient encounter procedure Pacc Av 1 Other Phone: Pre Anesthesia Comment on above: Pre-op examination ( Primary Dx); Palpitations; Organic anxiety syndrome Start: 11-15-2023 End: 11-15-2023 Preprocedural examination done Pacc [address] 1 Other Phone: [facility] Work Phone: Start: 11-15-2023 Telephone encounter Viktoria Causey PA-C Work Phone: Pre Anesthesia Comment on above: Pre-Op Exam Start: 11-07-2023 End: 11-07-2023 ambulatory SEDRICK RUSHING Facility:[facility] Start: 11-05-2023 Telephone encounter Sedrick justice MD Work Phone: Cardiology Comment on above: Patient Question (PV Cs and Frequent ED visits. ) Start: 10-30-2023 Telephone encounter Sedrick justice MD Work Phone: Cardiology Comment on above: Palpitations; ED pt update Start: 10-23-2023 Telephone encounter Seema cooley MD Work Phone: General Surgery Comment on above: Cardiac Clearance Start: 10-22-2023 End: 10-22-2023 ambulatory SEDRICK RUSHING Facility:[facility] Start: 10-22-2023 End: 10-22-2023 Patient encounter procedure Sedrick Rushing MD Work Phone: Cardiology Comment on above: Palpitations (Primar y Dx); Other supraventricular tachycardia (HCC) Start: 10-19-2023 End: 10-19-2023 ambulatory ANALIA HOLLIDAY Facility:[facility] Start: 09-11-2023 Telephone encounter Isabelle chiu MD Work Phone: Gastroenterology Comment on above: Patient Update Start: 09-06-2023 Telephone encounter Isabelle chiu MD Work Phone: [facility] Provider Adult Start: 09-06-2023 ambulatory ANALIA HOLLIDAY Facili ty:[facility] Start: 09-06-2023 End: 09-06-2023 Subsequent hospital visit by physician Isabelle Menon MD Work Phone: [facility] Endoscopy - ENDO Comment on above: Chronic recurrent pa ncreatitis (HCC) [K86.1] Start: 06-25-2023 Telephone encounter Large Hops Procedure [...] 06-01-2023 End: 06-01-2023 ambulatory Analia Holliday Other [employer] Other Start: 06-01-2023 Telephone encounter Analia [facility] Start: 05-30-2023 End: 05-30-2023 Patient encounter procedure DNP Analia Miya Work Phone: [facility] Start: 05-30-2023 End: 05-30-2023 ambulatory DNP Analia Miya Work Phone: [facility] Work Phone: Start: 05-24-2023 End: 05-24-2023 ambulatory Analia Miya Other [employer] Other Start: 05-24-2023 Encounter for genera l adult medical examination without abnormal findings Analia Holliday [facility] Start: 05-24-2023 Initial preventive medicine new pt age 18-39yrs Analia Holliday [facility] Start: 05-22-2023 End: 05-22-2023 Patient encounter procedure Dara Butler DO Work Phone: Gastgroenterology Comment on above: Chronic pancreatitis , unspecified pancreatitis type (HCC) (Primary Dx); Generalized abdominal pain; Irritable bowel syndrome with diarrhea; History of Clostridioides difficile colitis Start: 05-16-2023 End: 05-16-2023 ambulatory Ordering Provider Other [employer] Other Start: 05-16-2023 Telephone encounter Ordering Provide r [facility] Start: 05-03-2023 Telephone encounter Dara joshi DO Work Phone: Gastroenterology Comment on above: Results Start: 04-25-2023 ambulatory Jose Luis Hernandez Facility:[facility] Start: 04-14-2023 Telephone encounter Dara joshi DO Work Phone: Gastroenterology Comment on above: Results Start: 04-13-2023 ambulatory DARA BUTLER Facility: [facility] Start: 04-13-2023 End: 04-13-2023 Subsequent hospital visit by physician Ej [place]ie Cerrato (I-Stat/1.5t) Work Phone: Radiology Comment on above: Chronic recurrent pa ncreatitis (HCC) [K86.1] Start: 04-12-2023 Telephone encounter Salma Moise (Pas) [facility] Comment on above: APPT REMINDER (APPT REMINDER CALL, LEFT MESSAGE REGARDING DIRECTIONS TO OFFICE AND # IN NEED TO CANCEL) Start: 03-27-2023 End: 03-27-2023 ambulatory Silvano Reyez Other [employer] Other Start: 03-27-2023 Telephone encounter Silvano Castillo [facility] Start: 03-23-2023 End: 03-23-2023 ambulatory Silvano Reyez Other [employer] Other Start: 03-23-2023 Telephone encounter Silvano Castillo [facility] Comment on above: Results Start: 03-22-2023 End: 03-22-2023 ambulatory Silvano Reyez Other [employer] Other Start: 03-22-2023 Telephone encounter Meredith poole MD Work Phone: Rheumatology Comment on above: Results Start: 03-21-2023 Telephone encounter Dara joshi DO Work Phone: Gastroenterology Comment on above: Results Start: 03-20-2023 End: 03-20-2023 ambulatory Silvano Reyez Other [employer] Other Start: 03-20-2023 Telephone encounter Silvano Castillo [facility] Start: 03-15-2023 ambulatory Dara Butler DO Work Phone: Gastgroenterology Comment on above: Pancreas Start: 02-28-2023 ambulatory DARA BUTLER Facility: [facility] Start: 02-06-2023 End: 02-06-2023 Patient encounter procedure Dara Ilene Luke DO Work Phone: Gastgroenterology Comment on above: Chronic pancreatitis , unspecified pancreatitis type (HCC) (Primary Dx); Generalized abdominal pain; Intestinal malabsorption, unspecified type Start: 01-09-2023 ambulatory Jose Luis Hernandez Facility:[facility] Start: 12-21-2022 ambulatory Meredith Gee MD Work Phone: Rheumatology Comment on above: update Start: 12-01-2022 End: 12-02-[address] DOCTOR GENTILE Facility:[facility] Start: 11-22-2022 End: 11-22-2022 ambulatory Silvano Reyez Other [employer] Other Start: 11-22-2022 Office outpatient ne w 30 minutes Silvano Reyez [facility] Start: 11-08-2022 End: 11-08-2022 ambulatory Jaya Parikh Other [employer] Other Start: 11-08-2022 Telephone encounter Jaya Parikh [...] Facility:[facility] Start: 09-26-2022 End: 09-27-[address] YKREE NOGUERA . Facility:[facility] Start: 09-22-2022 End: 09-23-[address] KYREE NOGUERA . Facility:[facility] Start: 09-20-2022 End: 09-21-2022 ambulatory [facility] Start: 09-12-2022 End: 09-13-[address] DOCTOR GENTILE Facility:[facility] Start: 09-11-2022 End: 09-11-2022 ambulatory KANDY [facility] Start: 08-30-2022 End: 08-31-[address] DOCTOR GENTILE Facility:[facility] Start: 08-30-2022 End: 08-30-2022 ambulatory KANDY [facility] Start: 08-24-2022 End: 08-24-[address] KYREE NOGUERA . Facility:[facility] Start: 08-22-2022 End: 08-23-[address] KYREE NOGUERA . Facility:[facility] Start: 08-22-2022 End: 08-22-[address] KYREE NOGUERA . Facility:[facility] Start: 08-21-2022 End: 08-22-[address] KYREE NOGUERA . Facility:[facility] Start: 08-15-2022 End: 08-16-2022 ambulatory [facility] Start: 08-14-2022 End: 08-14-[address] JEREMIAH BURROUGHS . Facility:[facility] Start: 08-02-2022 End: 08-02-2022 ambulatory CELY NELSON [facility] Start: 07-28-2022 End: 07-28-2022 ambulatory Jaya Parikh Other [employer] Other Start: 07-28-2022 Telephone encounter Jaya Garcia [facility] Start: 07-27-2022 End: 07-27-[address] KYREE NOGUERA . Facility:[facility] Start: 07-13-2022 End: 07-13-[address] KYREE NOGUERA . Facility:[facility] Start: 05-11-2022 End: 05-12-[address] DOCTOR GENTILE Facility:[facility] Start: 05-04-2022 End: 05-04-[address] DOCTOR GENTILE Facility:[facility] Start: 05-01-2022 End: 05-01-[address] DOCTOR GENTILE Facility:[facility] Start: 04-27-2022 End: 04-27-2022 ambulatory Jaya Parikh Other [employer] Other Start: 04-27-2022 Patient encounter procedure Jaya ELIAS [facility] Start: 04-17-2022 End: 04-18-[address] KYREE NOGUERA . Facility:[facility] Start: 03-17-2022 End: 03-17-[address] DOCTOR GENTILE Facility:[facility] Start: 03-15-2022 ambulatory PHANI PRESLEY Facility:[facility] Start: 03-15-2022 End: 03-15-2022 Office outpatient [address] Phani Presley MD Work Phone: [facility] [place] Comment on above: Diarrhea, unspecifie d type (Primary Dx) Start: 02-25-2022 End: 02-25-2022 ambulatory COLBY AUGUSTIN Facility:[facility] Start: 02-01-2022 End: 02-02-[address] DOCTOR GENTILE Facility:[facility] Start: 01-19-2022 End: 01-19-2022 ambulatory Jaya Parikh Other [employer] Other Start: 01-19-2022 Telephone encounter Jaya Garcia [facility] Start: 01-14-2022 End: 01-14-2022 ambulatory COLBY AUGUSTIN Facility:[facility] Start: 12-27-2021 ambulatory REFERRED SELF Facility: [facility] Start: 10-27-2021 End: 10-27-2021 ambulatory Jaya Parikh Other [employer] Other Start: 10-27-2021 Telephone encounter Jaya Garcia [facility] Start: 10-17-2021 End: 10-17-2021 ambulatory Jaya Parikh Other [employer] Other Start: 10-17-2021 Telephone encounter Jaya Garcia [facility] Start: 10-07-2021 ambulatory PHANI SAKINA Facility:[facility] Start: 10-06-2021 End: 10-06-2021 ambulatory Jaya Parikh Other [employer] Other Start: 10-06-2021 Telephone encounter Jaya Garcia [facility] Start: 09-30-2021 End: 09-30-2021 ambulatory Jaya Parikh Other [employer] Other Start: 09-30-2021 Telephone encounter Jaya Garcia [facility] Start: 09-27-2021 End: 09-27-2021 ambulatory Jaya Parikh Other [employer] Other Start: 09-27-2021 [facility] visit new patient Jaya Parikh [facility] Start: 05-05-2021 Office outpatient vi sit 15 minutes Arlene Negro [facility] Start: 12-02-2020 End: 12-02-2020 Subsequent hospital visit by physician [facility] Radiology Ct Scan Comment on above: Family history of is chemic heart disease and other diseases of the circulatory system [Z82.49] Procedures Date Procedure Procedure Detail Performing Clinician Start: 07-08-2024 [facility] PREG QUANT HCG Jeremiah Heike DO Work Phone: Start: 07-01-2024 SKIN / NAIL BIOPSY Elif Rich MD Work Phone: Start: 04-17-2024 End: 04-17-2024 Study Interpretation of outside study Non- Radiology Contrast Provider Start: 04-16-2024 Esophagogastroduodenoscopy transoral diagnostic Whitney Ambriz MD MPH Work Phone: Start: 04-16-2024 Urine test visual color cmprsn meths Kenny Batista MD Work Phone: Start: 04-16-2024 PULSE OXIMETRY, CONTINUOUS Kenny Batista MD Work Phone: Start: 04-16-2024 PULSE OXIMETRY, SPOT Kenny Batista MD Work Phone: Start: 03-13-2024 EXTRA MARK-TATIANA CONTAINER PERFORMABLE Dara Butler DO Work Phone: Start: 03-13-2024 EXTRA ECOFIX CONTAINER PERFORMABLE Dara Butler DO Work Phone: Start: 03-13-2024 Inf agent det nucleic acid clostridium amp probe Dara Butler DO Work Phone: Start: 03-13-2024 LAB EXTRA TUBES Dara Butler DO Work Phone: Start: 02-11-2024 XR UPPER GI SINGLE CONTRAST Dara garay DO Work Phone: Start: 01-30-2024 Gastric emptying imaging study Dara cortez DO Work Phone: Start: 09-06-2023 Esophagoscp rig transoral hypopharynx crv satish Menon MD Work Phone: Start: 04-13-2023 Mri abdomen w/o & w/contrast material Dara Butler DO Work Phone: Start: 12-02-2020 Ct angiography head w/contrast/noncontrast Rickie Naqvi DO Work Phone: Start: 12-02-2020 Ct angiography neck w/contrast/noncontrast Rickie Naqvi DO Work Phone: History of cholecystectomy S/P l aparoscopic cholecystectomy Ariella Mccoy [employer]NER Work Phone: Plan of Treatment Date Care Activity Detail Author Start: 2048 Zoster Vaccines (1 of 2) Zoster Vaccines (1 of 2) [facility] Start: 01-09-2025 End: 01-09-2025 Patient encounter procedure 01/09/2025 9:00 AM EDT Office Visit Gastroenterology [address] [place] [address] Dara Butler Jr., DO [address] [place] [phone] Stomach pain/diarrhea Gastroenterology Comment on above: Stomach pain/diarrhea Start: 08-18-2024 End: 08-18-2024 Patient encounter procedure 08/18/2024 1:40 PM EST Office Visit Rheumatology [address] [facility] [place] [address] Meredith Gee MD [address] [facility] [place] [address] for fatigue fu OV. Rheumatology Comment on above: for fatigue fu OV. Start: 07-04-2024 End: 07-04-2024 Admission to same day surgery center 07/04/2024 7:30 AM EST - 07/04/2024 8:08 AM EST Surgery Ambulatory Surgery [address] [facility] [place] [address] Santiago Huffman MD [address] [facility] [place] [address] BLOCK CELIAC PLEXUS WITH C-ARM Ambulatory Surgery Comment on above: BLOCK CELIAC PLEXUS WITH C-ARM Start: 07-04-2024 End: 07-04-2024 Injx anes celiac plexus w/wo radiologic monitrng BLOCK CELIAC PLEXUS WITH C-ARM Right sided abdominal pain Celiac artery compression syndrome (HCC) Neuralgia and neuritis 07/04/2024 7:30 AM EST KATHY [place] Start: 07-04-2024 Subsequent hospital visit by physician 07/04/2024 7:30 AM EST Hospital Encounter Ambulatory Surgery [address] [place] [address] Santiago Huffman MD [address] [facility] [place] [address] Right sided abdominal pain [R10.9], Celiac artery compression syndrome (HCC) [I77.4], Neuralgia and neuritis [M79.2] Ambulatory Surgery Comment on above: Right sided abdominal pain [R10.9], Ju ac artery compression syndrome (HCC) [I77.4], Neuralgia and neuritis [M79.2] Start: 07-03-2024 End: 07-03-2024 Patient encounter procedure [facility] Comment on above: Arrived Start: 07-01-2024 End: 07-01-2024 Patient encounter procedure 07/01/2024 2:05 PM EST Office Visit [facility] [address] [place] [address] Elif Rich MD [address] [place] [address] Arrived [facility] Comment on above: Arrived Start: 06-30-2024 End: 06-30-2024 Patient encounter procedure 06/30/2024 10:30 AM EST Office Visit Pain Management [address] [facility], [place] [phone] Zenon Pretty MD [address] [place] [address] [place] [address] follow up Pain Management Comment on above: follow up Start: 06-13-2024 End: 06-13-2024 Patient encounter procedure 06/13/2024 1:20 PM EST Office Visit Gastroenterology [address] [place] [address] Dara Butler Jr., [address] [place] [address] JN -SOONER APPT FOR FOLLOW UP Gastroenterology Comment on above: JN -SOONER APPT FOR FOLLOW UP Start: 05-07-2024 End: 05-07-2024 Patient encounter procedure 05/07/2024 11:45 AM EDT Office Visit Gastroenterology [address] [place] [address] [place] [address] [place] [address] F/U OV Gastroenterology Comment on above: F/U OV Start: 04-30-2024 End: 04-30-2024 Patient encounter procedure Pain Management Comment on above: Dr [place] claudio referral Start: 04-16-2024 End: 04-16-2024 Patient encounter procedure 04/16/2024 9:00 AM EDT Appointment [facility] [address] [place] [phone] Whitney Ambriz MD MPH [address] [facility] [place], [place] [phone] [facility] Start: 03-26-2024 End: 03-26-2024 Patient encounter procedure 03/26/2024 11:00 AM EDT Office Visit Pain Management [address] [phone] Zenon Pretty MD [address] [place] [address] [address] [place], [place] [phone] Dr [place] claudio referral Pain Management Comment on above: Dr [place] claudio referral Start: 03-23-2024 Covid-19 Vaccine ( season) Covid-19 Vaccine ( season) [facility] Start: 03-23-2024 Covid-19 Vaccine ( season) Covid-19 Vaccine () [facility] Start: 03-23-2024 Influenza vaccination [facility] Start: 03-18-2024 End: 03-18-2024 Patient encounter procedure 03/18/2024 1:00 PM EDT Office Visit Gastroenterology [address] [address] Bola Braden MD [address] [place] [address] Pancreatitis second opinion Gastroenterology Comment on above: Pancreatitis second opinion Start: 03-14-2024 End: 03-14-2024 Patient encounter procedure 03/14/2024 10:00 AM EDT Office Visit Gastroenterology [address] [facility] [address] Dara Butler Jr., DO [address] [place] [address] follow upo Gastroenterology Comment on above: follow upo Start: 02-11-2024 End: 02-11-2024 Patient encounter procedure 02/11/2024 9:30 AM EDT Appointment Radiology [address] [place] [address] : XR UPPER GI SINGLE CONTRAST Radiology Comment on above: : XR UPPER GI SINGLE CONTRAST Start: 02-01-2024 End: 02-01-2024 Patient encounter procedure 02/01/2024 3:00 PM EDT Office Visit Gastroenterology [address] [facility] [address] Dara Butler Jr., DO [address] [place] [address] JN -SOONER APPT FOR FOLLOW UP Gastroenterology Comment on above: JN -SOONER APPT FOR FOLLOW UP Start: 01-30-2024 End: 01-30-2024 Patient encounter procedure 01/30/2024 8:30 AM EDT Appointment [facility] [address] [place] [address] Gastric Emptying Study Weight 115 / Patient not Diabetic / Order in EPIC // DX: Upper abdominal pain [R10.10] [facility] Comment on above: Gastric Emptying Study Weight 115 / Nancy ent not Diabetic / Order in EPIC // DX: Upper abdominal pain [R10.10] Start: 01-09-2024 End: 01-09-2024 Patient encounter procedure 01/09/2024 8:30 AM EDT Appointment [facility] [address] [place] [address] Weight 115 / Patient not Diabetic / Order in EPIC // DX: Upper abdominal pain [R10.10] [facility] Comment on above: Weight 115 / Patient not Diabetic / Orde r in EPIC // DX: Upper abdominal pain [R10.10] Start: 12-28-2023 End: 12-28-2023 Patient encounter procedure 12/28/2023 3:00 PM EDT Office Visit Gastroenterology [address] [place] [address] Dara Butler Jr., DO [address] [place] [address] abdominal pain- add per JN Gastroenterology Comment on above: abdominal pain- add per JN Start: 12-27-2023 End: 12-27-2023 ambulatory 12/27/2023 10:00 AM EDT Results Only [facility] [address] [place] [address] [place] [address] [facility] Start: 12-26-2023 End: 03-26-2024 Amylase [Enzymatic activity/volume] in Serum or Plasma AMYLASE Lab Routine Generalized abdominal pain History of acute pancreatitis Expected: 12/26/2023, Expires: 03/26/2024 [facility] Comment on above: Expected: 12/26/2023, Expires: Start: 12-26-2023 End: 03-26-2024 C reactive protein [Mass/volume] in Serum or Plasma C-REACTIVE PROTEIN Lab Routine Generalized abdominal pain History of acute pancreatitis Expected: 12/26/2023, Expires: 03/26/2024 [facility] Comment on above: Expected: 12/26/2023, Expires: Start: 12-26-2023 End: 03-26-2024 CBC W Auto Differential panel - Blood COMPLETE BLOOD COUNT AND DIFFERENTIAL Lab Routine Generalized abdominal pain History of acute pancreatitis Expected: 12/26/2023, Expires: 03/26/2024 [facility] Comment on above: Expected: 12/26/2023, Expires: Start: 12-26-2023 End: 03-26-2024 Comprehensive metabolic 2000 panel - Serum or Plasma COMPREHENSIVE METABOLIC PANEL Lab Routine Generalized abdominal pain History of acute pancreatitis Expected: 12/26/2023, Expires: 03/26/2024 [facility] Work Phone: Comment on above: Expected: 12/26/2023, Expires: Start: 12-26-2023 End: 03-26-2024 Erythrocyte sedimentation rate SEDIMENTATION RATE, WESTERGREN Lab Routine Generalized abdominal pain History of acute pancreatitis Expected: 12/26/2023, Expires: 03/26/2024 [facility] Comment on above: Expected: 12/26/2023, Expires: Start: 12-26-2023 End: 03-26-2024 Lipase [Enzymatic activity/volume] in Serum or Plasma LIPASE Lab Routine Generalized abdominal pain History of acute pancreatitis Expected: 12/26/2023, Expires: 03/26/2024 [facility] Comment on above: Expected: 12/26/2023, Expires: Start: 12-10-2023 End: 12-10-2023 Patient encounter procedure 12/10/2023 12:20 PM EDT Office Visit Rheumatology [address] [place], [place] [phone] Meredith Gee MD [address] [place], [place] [phone] for fatigue fu OV. Rheumatology Comment on above: for fatigue fu OV. Start: 11-21-2023 End: 11-21-2023 Admission to same day surgery center 11/21/2023 3:15 PM EDT - 11/21/2023 5:45 PM EDT Surgery [facility] Operating Room [address] [place] [address] [place] [address] [address] LAPAROSCOPIC CHOLECYSTECTOMY [facility] Operating Room Comment on above: LAPAROSCOPIC CHOLECYSTECTOMY Start: 11-21-2023 End: 11-21-2023 Laparoscopy surg cholecystectomy LAPAROSCOPIC CHOLECYSTECTOMY Cholecystitis 11/21/2023 3:15 PM EDT [facility] Start: 11-21-2023 Subsequent hospital visit by physician 11/21/2023 3:15 PM EDT Hospital Encounter [facility] Operating Room [address] [place] [phone] [place] [address] [facility] [address] [place] [address] Cholecystitis [K81.9] [facility] Operating Room Comment on above: Cholecystitis [K81.9] Start: 07-23-2023 Behavioral Health Screening Behavioral Health Screening [facility] Start: 07-23-2023 Depression Assessment Depression Assessment [facility] Start: 03-23-2023 Covid-19 Vaccine () Covid-19 Vaccine () [facility] Start: 03-23-2023 Influenza vaccination [facility] Start: 02-06-2023 End: 04-08-2023 Amylase [Enzymatic activity/volume] in Serum or Plasma AMYLASE BLD Lab Routine Generalized abdominal pain Chronic pancreatitis, unspecified pancreatitis type (HCC) Intestinal malabsorption, unspecified type Expected: 02/06/2023, Expires: 04/08/2023 [facility] Work Phone: Comment on above: Expected: 02/06/2023, Expires: 3 Start: 02-06-2023 End: 04-08-2023 CELIAC SCREEN WITH REFLEX CELIAC SCREEN WITH REFLEX Lab Routine Generalized abdominal pain Chronic pancreatitis, unspecified pancreatitis type (HCC) Intestinal malabsorption, unspecified type Expected: 02/06/2023, Expires: 04/08/2023 [facility] Work Phone: Comment on above: Expected: 02/06/2023, Expires: 3 Start: 02-06-2023 End: 04-08-2023 Comprehensive metabolic 2000 panel - Serum or Plasma COMP METABOLIC PANEL Lab Routine Generalized abdominal pain Chronic pancreatitis, unspecified pancreatitis type (HCC) Intestinal malabsorption, unspecified type Expected: 02/06/2023, Expires: 04/08/2023 [facility] Work Phone: Comment on above: Expected: 02/06/2023, Expires: 3 Start: 02-06-2023 End: 04-08-2023 IGG SUBCLASS 1,2,3,4 IGG SUBCLASS 1,2,3,4 Lab Routine Generalized abdominal pain Chronic pancreatitis, unspecified pancreatitis type (HCC) Intestinal malabsorption, unspecified type Expected: 02/06/2023, Expires: 04/08/2023 [facility] Work Phone: Comment on above: Expected: 02/06/2023, Expires: 3 Start: 02-06-2023 End: 04-08-2023 Lipase [Enzymatic activity/volume] in Serum or Plasma LIPASE BLD Lab Routine Generalized abdominal pain Chronic pancreatitis, unspecified pancreatitis type (HCC) Intestinal malabsorption, unspecified type Expected: 02/06/2023, Expires: 04/08/2023 [facility] Work Phone: Comment on above: Expected: 02/06/2023, Expires: 3 Start: 02-06-2023 End: 04-08-2023 Lipid 1996 panel - Serum or Plasma LIPID PANEL BASIC Lab Routine Generalized abdominal pain Chronic pancreatitis, unspecified pancreatitis type (HCC) Intestinal malabsorption, unspecified type Expected: 02/06/2023, Expires: 04/08/2023 [facility] Work Phone: Comment on above: Expected: 02/06/2023, Expires: 3 Start: 02-06-2023 End: 04-08-2023 Nuclear Ab [Presence] in Serum by Immunoassay PHANI BLOOD Lab Routine Generalized abdominal pain Chronic pancreatitis, unspecified pancreatitis type (HCC) Intestinal malabsorption, unspecified type Expected: 02/06/2023, Expires: 04/08/2023 [facility] Work Phone: Comment on above: Expected: 02/06/2023, Expires: 3 Start: 07-23-2022 DEPRESSION ASSESSMENT DEPRESSION ASSESSMENT [facility] Start: 07-20-2022 End: 07-20-2022 Patient encounter procedure 07/20/2022 Office Visit Gastroenterology Phani Presley MD [address] [place] [phone] General and Gastrointestinal Surgery [facility] [place] Start: 03-23-2022 Influenza vaccination INFLUENZA VACCINE (#1) [facility] Start: 03-15-2022 End: 03-15-2023 C DIFFICILE BY PCR (CLOSTRIDIUM DIFFICILE TOXIN) C DIFFICILE BY PCR (CLOSTRIDIUM DIFFICILE TOXIN) Microbiology Routine Diarrhea, unspecified type Expected: 03/15/2022, Expires: 03/15/2023 [facility] Comment on above: Expected: 03/15/2022, Expires: 3 Start: 03-15-2022 End: 03-15-2023 MOLECULAR ENTERIC PANEL, STOOL MOLECULAR ENTERIC PANEL, STOOL Fluids Routine Diarrhea, unspecified type Expected: 03/15/2022, Expires: 03/15/2023 [facility] Comment on above: Expected: 03/15/2022, Expires: 3 Start: 09-06-2021 COVID-19 VACCINE (3 - Booster for Pfizer series) COVID-19 VACCINE (3 - Booster for Pfizer series) [facility] Start: 06-01-2021 COVID-19 VACCINE (3 - Booster for Pfizer series) COVID-19 VACCINE (3 - Booster for Pfizer series) [facility] Start: 06-01-2021 COVID-19 VACCINE (3 - Pfizer series) COVID-19 VACCINE (3 - Pfizer series) [facility] Start: 02-07-2021 DTaP/Tdap/Td Vaccines (7 - Td or Tdap) DTaP/Tdap/Td Vaccines (7 - Td or Tdap) [facility] Start: 02-07-2021 Urine microalbumin profile DTaP,Tdap,Td Vaccine (7 - Td or Tdap) [facility] Start: 11-18-2019 PAP TESTING PAP TESTING [facility] Start: 11-18-2019 Screening for malignant neoplasm of cervix [facility] Start: 2017 Third diphtheria, tetanus and acellular pertussis (DTaP) vaccination TDAP (ADULT) [facility] Start: 2017 Urine microalbumin profile [facility] Start: 2016 Depression Screening Depression Screening [facility] Start: 2016 Hepatitis C screening Hepatitis C Screening [facility] Start: 2016 HIV SCREENING HIV SCREENING [facility] Start: 2016 HIV screening HIV Screening [facility] Start: 2016 Tetanus vaccination TETANUS [facility] Start: 2014 Meningococcal B Vaccine: Consider Based On Risk (1 of 2 - Patient Seeks Protection) Meningococcal B Vaccine: Consider Based On Risk (1 of 2 - Patient Seeks Protection) [facility] Start: 2014 MENINGOCOCCAL B: Consider based on risk (1 of 2 - Patient Seeks Protection) MENINGOCOCCAL B: Consider based on risk (1 of 2 - Patient Seeks Protection) [facility] Start: 2014 Screening for Chlamydia trachomatis CHLAMYDIA SCREEN [facility] Start: 2013 HIV screening HIV SCREENING DISCUSSION [facility] Start: 2012 PEDS TO ADULT TRANSITION ANNUAL ASSESSMENT PEDS TO ADULT TRANSITION ANNUAL ASSESSMENT [facility] Start: 08-15-2011 HPV Vaccine (3 - 2-dose series) HPV Vaccine (3 - 2-dose series) [facility] Start: 08-15-2011 HPV Vaccines (3 - 2-dose series) HPV Vaccines (3 - 2-dose series) [facility] Start: 2010 PEDS TO ADULT TRANSITION INITIAL DISCUSSION PEDS TO ADULT TRANSITION INITIAL DISCUSSION [facility] Start: 2009 Vaccination for human papillomavirus HPV VACCINE ADOL (1 - 2-dose series) [facility] Start: 2008 MENINGOCOCCAL B: Consider based on risk (1 of 2 - Risk Bexsero 2-dose series) MENINGOCOCCAL B: Consider based on risk (1 of 2 - Risk Bexsero 2-dose series) [facility] Start: 11-18-2007 HPV VACCINE (1 - 2-dose series) HPV VACCINE (1 - 2-dose series) [facility] Start: 1998 GONORRHEA SCREEN GONORRHEA SCREEN [facility] Start: 1998 HEPATITIS B (1 of 3 - 3-dose series) HEPATITIS B (1 of 3 - 3-dose series) [facility] Start: 1998 Hepatitis B Vaccine (1 of 3 - 3-dose series) Hepatitis B Vaccine (1 of 3 - 3-dose series) [facility] Start: 1998 Hepatitis C antibody, confirmatory test HEPATITIS C VIRUS SCREENING [facility] Start: 1998 HIV screening HIV Screening [facility] Start: 1998 Lipid panel Lipid Panel [facility] Start: 1998 Yearly Adult Physical Yearly Adult Physical [facility] Blood type and Indir ect antibody screen panel - Blood Type And Screen Lab Timed As needed (Lab) for 1 Occurrences starting 04/16/2024 [facility] Service Area Work Phone: Comment on above: As needed (Lab) for 1 Occurrences starti 04/16/2024 End: 07-12-2024 Ct angio abd&plvis cntrst mtrl w/wo cntrst img CTA ABD/PEL W IVCON Radiology Routine Generalized abdominal pain RUQ pain Chronic recurrent pancreatitis (HCC) Diarrhea, unspecified type 1 Occurrences starting 06/13/2023 until 07/12/2024 [facility] Work Phone: Comment on above: 1 Occurrences starting 06/13/2023 until 07/12/2024 Dermatopathology exam Dermatopat hology exam Pathology and Cytology Timed Neoplasm of unspecified behavior of bone, soft tissue, and skin Release Upon Ordering for 1 Occurrences starting 07/01/2024 [facility] Work Phone: Comment on above: Release Upon Ordering for 1 Occurrences starting 07/01/2024 End: 10-21-2024 Echocardiography ECHO Cardiology Routine Other supraventricular tachycardia (HCC) Palpitations 1 Occurrences starting 10/22/2023 until 10/21/2024 [facility] Work Phone: Comment on above: 1 Occurrences starting 10/22/2023 until 10/21/2024 End: 04-16-2024 Moderate Sedation Moderate Sedation Procedures Routine Once for 1 Occurrences starting 04/16/2024 until 04/16/2024 [facility] Work Phone: Comment on above: Once for 1 Occurrences starting 04/16/20 until 04/16/2024 End: 04-14-2024 Mri abdomen w/o & w/contrast material MRI ABDOMEN WO/W IVCON Radiology Routine Chronic recurrent pancreatitis (HCC) 1 Occurrences starting 03/16/2023 until 04/14/2024 [facility] Work Phone: Comment on above: 1 Occurrences starting 03/16/2023 until 04/14/2024 End: 01-26-2025 NM Stomach Views for gastric emptying solid phase W radionuclide PO NM GASTRIC EMPTYING SOLID Radiology Routine Upper abdominal pain Dyspepsia and disorder of function of stomach Dyspepsia 1 Occurrences starting 12/28/2023 until 01/26/2025 [facility] Comment on above: 1 Occurrences starting 12/28/2023 until 01/26/2025 OUTSIDE VENDOR CARDI AC OUTPATIENT EXTENDED RHYTHM RECORDING (WITHOUT TELEMETRY) OUTSIDE VENDOR CARDIAC OUTPATIENT EXTENDED RHYTHM RECORDING (WITHOUT TELEMETRY) Holter Routine Other supraventricular tachycardia (HCC) Palpitations Ordered: 10/22/2023 [facility] Work Phone: Comment on above: Ordered: 10/22/2023 End: 01-26-2025 RF Gastrointestinal tract upper Views W barium contrast PO XR UPPER GI SINGLE CONTRAST Radiology Routine Upper abdominal pain Dyspepsia and disorder of function of stomach 1 Occurrences starting 12/28/2023 until 01/26/2025 [facility] Work Phone: Comment on above: 1 Occurrences starting 12/28/2023 until 01/26/2025 Study Interpretation of outside study [facility] Surgical pathology study Surgica l Pathology Exam Pathology and Cytology Timed Median arcuate ligament syndrome (CMS-HCC) Release Upon Ordering for 1 Occurrences starting 04/16/2024 [facility] Work Phone: Comment on above: Release Upon Ordering for 1 Occurrences starting 04/16/2024 [facility] OR Immunizations Immunization Date Immunization Notes Care Provider Fa cili 05-23-2011 human papilloma viru s vaccine, quadrivalent Elif Rich MD Work Phone: [facility] 05-23-2011 varicella virus vaccine Boone Rich MD Work Phone: [facility] 05-23-2011 HPV, unspecified formulation Dane Merida MD Work Phone: [facility] Work Phone: 02-07-2011 human papilloma viru s vaccine, quadrivalent Elif Rich MD Work Phone: [facility] 02-07-2011 meningococcal polysaccharide (groups A, C, Y and W-135) diphtheria toxoid conjugate vaccine (MCV4P) Elif Rich MD Work Phone: [facility] 02-07-2011 tetanus toxoid, redu anastasiia diphtheria toxoid, and acellular pertussis vaccine, adsorbed Elif Rich MD Work Phone: [facility] 02-07-2011 varicella virus vaccine Boone Rich MD Work Phone: [facility] 01-27-2004 diphtheria, tetanus toxoids and acellular pertussis vaccine Elif Rich MD Work Phone: [facility] 01-27-2004 measles, mumps and rubella virus vaccine Elif Rich MD Work Phone: [facility] 01-27-2004 poliovirus vaccine, inactivated Elif Rich MD Work Phone: [facility] 05-21-2000 diphtheria, tetanus toxoids and acellular pertussis vaccine, unspecified formulation Elif Rich MD Work Phone: [facility] 05-21-2000 pneumococcal conjuga te vaccine, 7 valent Elif Rich MD Work Phone: [facility] 02-22-2000 haemophilus influenz ae type b vaccine, conjugate unspecified formulation Elif Rich MD Work Phone: [facility] 02-22-2000 measles, mumps and rubella virus vaccine Elif Rich MD Work Phone: [facility] 02-22-2000 poliovirus vaccine, unspecified formulation Elif Rich MD Work Phone: [facility] 11-24-1999 varicella virus vaccine Boone Rich MD Work Phone: [facility] 05-16-1999 diphtheria, tetanus toxoids and acellular pertussis vaccine, unspecified formulation Elif Rich MD Work Phone: [facility] 05-16-1999 haemophilus influenz ae type b vaccine, conjugate unspecified formulation Elif Rich MD Work Phone: [facility] 05-16-1999 hepatitis B vaccine, pediatric or pediatric/adolescent dosage Elif Rich MD Work Phone: [facility] 05-16-1999 poliovirus vaccine, unspecified formulation Elif Rich MD Work Phone: [facility] 03-18-1999 diphtheria, tetanus toxoids and acellular pertussis vaccine, unspecified formulation Elif Rich MD Work Phone: [facility] 03-18-1999 haemophilus influenz ae type b vaccine, conjugate unspecified formulation Elif Rich MD Work Phone: [facility] 03-18-1999 poliovirus vaccine, unspecified formulation Elif Rich MD Work Phone: [facility] 01-14-1999 diphtheria, tetanus toxoids and acellular pertussis vaccine, unspecified formulation Elif Rich MD Work Phone: [facility] 01-14-1999 haemophilus influenz ae type b vaccine, conjugate unspecified formulation Elif Rich MD Work Phone: [facility] 01-14-1999 hepatitis B vaccine, pediatric or pediatric/adolescent dosage Elif Rich MD Work Phone: [facility] 01-14-1999 poliovirus vaccine, unspecified formulation Elif Rich MD Work Phone: [facility] 1998 hepatitis B vaccine, pediatric or pediatric/adolescent dosage Elif Rich MD Work Phone: [facility] Payers Date Payer Category [id number] 2022 Unknown [id number] 2020 Unknown [id number] [id number]. [id number] 2019 Unknown [id number] 2.16.840.1.243068.19 1998 Unknown [id number] 2.16.840.1.023354.3.579.2. 647 1998 Unknown [id number] 2.16.840.1.205155.3.579.2. 594 1998 Unknown [id number] 2.16.840.1.456472.3.579.2. 594 1998 Unknown [id number] 2.16.840.1.438527.3.579.2. 593 1998 Unknown [id number] 2.16.840.1.467956.3.579.2. 593 1998 Unknown [id number] 2.16.840.1.920820.3.579.2. 593 1998 Unknown [id number] 2.16.840.1.594580.3.579.2. 593 1998 Unknown [id number] 2.16.840.1.503512.3.579.2. 593 1998 Unknown [id number] 2.16.840.1.630295.3.579.2. 593 1998 Unknown [id number] 2.16.840.1.782432.3.579.2. 593 1998 Unknown [id number] 2.16.840.1.333007.3.579.2. 593 1998 Unknown [id number] 2.16.840.1.411312.3.579.2. 593 1998 Unknown [id number] 2.16.840.1.271783.3.579.2. 593 1998 Unknown [id number] 2.16.840.1.607469.3.579.2. 593 1998 Unknown [id number] 2.16.840.1.048883.3.579.2. 593 1998 Unknown [id number] 2.16.840.1.144002.3.579.2. 593 1998 Unknown [id number] 2.16.840.1.769777.3.579.2. 593 1998 Unknown [id number] 2.16.840.1.373239.3.579.2. 593 1998 Unknown [id number] 2.16.840.1.373646.3.579.2. 593 1998 Unknown [id number] 2.16.840.1.682324.3.579.2. 593 1998 Unknown [id number] 2.16.840.1.409136.3.579.2. 593 1998 Unknown [id number] 2.16.840.1.264935.3.579.2. 593 1998 Unknown [id number] 2.16.840.1.313612.3.579.2. 593 1998 Unknown [id number] 2.16.840.1.373570.3.579.2. 593 1998 Unknown [id number] 2.16.840.1.054287.3.579.2. 593 1998 Unknown [id number] 2.16.840.1.795301.3.579.2. 593 1998 Unknown [id number] 2.16.840.1.040755.3.579.2. 593 1998 Unknown [id number] 2.16.840.1.882700.3.579.2. 593 1998 Unknown [id number] 2.16.840.1.560714.3.579.2. 593 1998 Unknown [id number] 2.16.840.1.552046.3.579.2. 593 1998 Unknown [id number] 2.16.840.1.818490.3.579.2. 593 1998 Unknown [id number] 2.16.840.1.387412.3.579.2. 593 1998 Unknown [id number] 2.16.840.1.922177.3.579.2. 593 1998 Unknown [id number] 2.16.840.1.732505.3.579.2. 593 1998 Unknown [id number] 2.16.840.1.743398.3.579.2. 593 1998 Unknown [id number] 2.16.840.1.457824.3.579.2. 1259 1998 Unknown [id number] 2.16.840.1.271772.3.579.2. 1259 1998 Unknown [id number] 2.16.840.1.351985.3.579.2. 1259 Unknown [id number] 2.16.840.1.005659.3.579.2. 531 Unknown [id number] 2.16.840.1.879256.3.579.2. 531 Social History Date Type Detail Facility Unknown if ever smoked [employer] Other Start: 02-06-2023 End: 02-05-2024 Sex Assigned At [facility] Start: 03-15-2022 End: 02-05-2024 Tobacco smoking status NHIS Never smoked tobacco [facility] Start: 03-15-2022 End: 02-05-2024 Tobacco use and exposure Smokeless tobacco non-user [facility] Start: 03-15-2022 End: 07-03-2024 Alcohol intake Current drinker of alcohol (finding) [facility] Start: 03-15-2022 History SDOH Alcohol Comment social [facility] Start: 1998 Sex Assigned At Not on file [facility] Start: 12-08-2022 Tobacco smoking status NHIS Ex-smoker [facility] History of tobacco use Current smoker [facility] Start: 1998 Sex Assigned At Female [facility] Start: 02-06-2023 End: 02-05-2024 History of Social function [facility] Adult Depression Screening Assessment 1 [facility] Start: 12-02-2020 Gender identity Identifies as female gender (finding) [facility] Start: 12-02-2020 Sexual orientation Heterosexual (finding) [facility] Tobacco smoking stat us NHIS Tobacco smoking consumption unknown [facility] Start: 06-06-2023 End: 04-16-2024 Alcohol intake Ex-drinker (finding) [facility] Start: 11-15-2023 Alcohol Comment socially- rare [facility] Start: 12-12-2022 Alcohol Comment 1-2 drinks/monthly or less [facility] How often to you hav e a drink containing alcohol? Never [facility] Work Phone: Start: 01-26-2024 End: 04-16-2024 Exposure to SARS-CoV-2 (event) Not sure [facility] Clinical Notes 12-02-2020 to 07-03-2024 Valery Vazquez LPN - 07/03/2024 11:40 AM ESTTelephone Encounter - Gail Oropeza - 07/03/2024 9:20 AM ESTTelephone Encounter - Gail Oropeza - 07/03/2024 9:20 AM ESTDischarge Instructions Note Date & Type Note Facility 07-03-2024 History of Present illness Narrative Reason for Appointment: Patient ID: Rosa Alonzo is a 23 y.o. female who presents for follow up miscarriage Patient presents today for Follow up appointment to discuss results. 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 05/02/2022 Cervicalgia 12/09/2021 Chronic fatigue 12/09/2021 Bilateral arm pain 12/08/2022 Chronic pain of left knee 12/09/2021 Clostridium difficile colitis 10/28/2021 Cyst of left ovary 01/24/2023 Dysuria 01/24/2023 Generalized anxiety disorder ([facility]) 05/02/2022 Irritable bowel syndrome with diarrhea 05/02/2022 Lower abdominal pain 05/02/2022 Menstrual disorder 01/24/2023 Miscarriage 01/24/2023 Nausea 05/02/2022 Pain due to genitourinary prosthetic devices, implants and grafts, initial encounter ([facility]) 01/24/2023 Photosensitivity 12/08/2022 Recurrent infections 12/09/2021 Underweight 05/02/2022 Urticaria 12/09/2021 Renal vein stenosis 04/19/2023 Resolved Ambulatory Problems Diagnosis Date Noted No Resolved Ambulatory Problems Past Medical History: Diagnosis Date Anxiety Atypical nevus of back 09/08/2020 Clostridium difficile infection 2019 Contraceptive management Counseling and instruction in natural family planning to avoid Encounter for counseling regarding contraception Encounter for gynecological examination (general) (routine) without abnormal findings Encounter for insertion of Mirena IUD Hemorrhagic cyst of left ovary Irregular menses IUD check up Pain due to intrauterine contraceptive device (IUD) (HCC) ([facility]) Pancreatitis 2014 Urine test negative HISTORY PAST MEDICAL HISTORY SOCIAL HISTORY Past Medical History: Diagnosis Date Anxiety Atypical nevus of back 09/08/2020 Moderate to severely atypical nevus, lower back, excised Clostridium difficile infection 2019 Dr Augustin Contraceptive management Counseling and instruction in natural family planning to avoid Dysuria Encounter for counseling regarding contraception Encounter for gynecological examination (general) (routine) without abnormal findings Encounter for insertion of Mirena IUD Hemorrhagic cyst of left ovary Irregular menses IUD check up Miscarriage Pain due to intrauterine contraceptive device (IUD) (HCC) ([facility]) Pancreatitis 2015 Dr Augustin/ Hospitalization history: H 5 days Urine test negative Social History Tobacco Use Smoking status: Never Smokeless tobacco: Not on file Substance Use Topics Alcohol use: Yes Alcohol/week: 2.0 standard drinks of alcohol Types: 2 Standard drinks or equivalent per week Comment: 1-2 drinks/monthly or less Drug use: Not on file FAMILY HISTORY Family History Problem Relation Name Age of Onset Stroke Mother Prostate cancer Father Hypertension Father No Known Problems Sister 2 sisters No Known Problems Brother Cancer Maternal Grandmother Cancer Maternal Grandfather SURGICAL HISTORY Past Surgical History: Procedure Laterality Date COLONOSCOPY 12/29/2020 Dr [place] CT ANGIO HEAD 12/02/2020 CT ANGIO HEAD 12/02/2020 CT ANGIOGRAM ABDOMEN PELVIS 07/05/2023 CT ANGIOGRAM ABDOMEN PELVIS 07/05/2023 CT ANGIOGRAM NECK 12/02/2020 CT ANGIOGRAM NECK 12/02/2020 LAPAROSCOPY DIAGNOSTIC / BIOPSY / ASPIRATION / LYSIS 01/12/2023 MOLE REMOVAL 2019 Shayna FIELDS WISDOM TOOTH EXTRACTION 2015 REVIEW OF SYSTEMS Review of Systems: Review of Systems Constitutional: Negative. HENT: Negative. Eyes: Negative. Respiratory: Negative. Cardiovascular: Negative. Gastrointestinal: Negative. Genitourinary: Negative. Musculoskeletal: Negative. Skin: Negative. Neurological: Negative. All other systems reviewed and are negative. Hematological: Negative. Endocrine: Negative. Allergic/Immunologic: Negative. OBJECTIVE Objective: Physical Exam Constitutional: Appearance: Normal appearance. She is well-developed. Cardiovascular: Rate and Rhythm: Normal rate and regular rhythm. Pulmonary: Effort: Pulmonary effort is normal. Breath sounds: Normal breath sounds. Abdominal: General: Bowel sounds are normal. There is no distension. Palpations: Abdomen is soft. Tenderness: There is no abdominal tenderness. There is no guarding or rebound. Musculoskeletal: General: No swelling. Normal range of motion. Right lower leg: No edema. Left lower leg: No edema. Neurological: Mental Status: She is alert and oriented to person, place, and time. Skin: General: Skin is warm and dry. Psychiatric: Mood and Affect: Mood normal. Behavior: Behavior normal. Vitals and nursing note reviewed. Exam conducted with a rail car unloader present. Vitals: Estimated body mass index is 19.91 kg/m as calculated from the following: Height as of 02/04/24: 5' 4 . Weight as of this encounter: 116 lb. BP: 108/60 No LMP recorded. ASSESSMENT & PLAN ICD-10-CM 1. Follow-up visit after miscarriage Z51.89 O03.9 Patient presents today to follow up after a recent miscarriage. I have discussed HCG lab levels and miscarriage with patient in detail. Patient was given an additional standing QUANT level lab order to have obtained and will continue to have labs drawn until value reads less than 5. Patient has been advised to wait a full cycle until trying to conceive again, patient voiced understanding, and will call when so office can call in progesterone suppositories. Follow Up: As Needed Documented by Valery Vazquez LPN on behalf of: Jeremiah Burroughs DO documented in this encounter [facility] 07-03-2024 Telephone encounter Note BLOCK CELIAC PLEXUS WITH C-ARM needs rescheduled. Please reach out to her to reschedule this. [facility] 07-03-2024 Miscellaneous Notes BLOCK CELIAC PLEXUS WITH C-ARM needs rescheduled. Please reach out to her to reschedule this. documented in this encounter [facility] 07-01-2024 History of Present illness Narrative Lesions: Location: [place] Duration: a long time Quality: denies pain, denies itch, denies bleeding Associated symptoms: enlarged Treatments: none Established patient All pertinent medical history, medications, and allergies were reviewed. General Exam: alert, oriented to person, place, and time, normal affect, well appearing Unaccompanied A focused exam completed based on patient reported problems, see below: 1. Neoplasm of unspecified behavior of bone, soft tissue, and skin Glabella Skin colored papule Lesion biopsy Type of biopsy: tangential Informed consent: discussed and consent obtained Informed consent comment: The risks and benefits of the biopsy were discussed. Risks include but are not limited to bleeding, infection, scarring, pain, and nerve damage. An opportunity to ask questions prior to the procedure was permitted and all questions were answered. Patient was prepped and draped in usual sterile fashion: area cleansed with alcohol. Anesthesia: the lesion was anesthetized in a standard fashion Anesthetic: 1% lidocaine w/ epinephrine 1-100,000 buffered w/ 8.4% NaHCO3 Instrument used: DermaBlade Hemostasis achieved with: electrodesiccation Outcome: patient tolerated procedure well Outcome comment: The specimen was placed in a prelabeled formalin container to be sent for pathology Post-procedure details: sterile dressing applied and wound care instructions given Post-procedure details comment: Emphasized need to contact clinic for any signs of infection, uncontrollable bleeding, or complications. Dressing type: bandage Additional details: Photo taken yes Amount of lidocaine used: 0.4 cc Specimen A - Dermatopathology exam Differential Diagnosis: inflamed vs atypical nevus Check Margins: No Size of lesion: 0.4 x 0.4 cm Next Visit: pending biopsy results documented in this encounter [facility] 06-23-2024 Telephone encounter Note Case message sent to [facility] [place] to cancel with Dr. Huffman 07/04 per patient request. [facility] 06-23-2024 Miscellaneous Notes Case message sent to surgery pool to cancel with Dr. Huffman 07/04 per patient request. PT called asking to cancel their procedure scheduled on 07/04/2024. Please review and advise. Thank you! documented in this encounter [facility] 06-23-2024 Telephone encounter Note PT called asking to cancel their procedure scheduled on 07/04/2024. Please review and advise. Thank you! [facility] 05-14-2024 Telephone encounter Note diagnostic celiac plexus blockade ROSA ALONZO [id number] BHARATHI 07/04 -THINNERS -DM Patient was made aware that the ASC will call the day prior to scheduled procedure between the hours of 12 and 4 pm to advise patient of arrival time the day of procedure. Patient was advised that they will require a locomotive driver on the day of their procedure, and procedure will be cancelled if they arrive without a responsible adult to transport them home from the procedure. Patient advised that all medication management instructions prior to procedure will need addressed by clinical staff. Patient expresses understanding with no further questions or concerns at this time. [facility] 05-14-2024 Miscellaneous Notes diagnostic celiac plexus blockade CLINTON ROSA [id number] BHARATHI 07/04 -THINNERS -DM Patient was made aware that the ASC will call the day prior to scheduled procedure between the hours of 12 and 4 pm to advise patient of arrival time the day of procedure. Patient was advised that they will require a locomotive driver on the day of their procedure, and procedure will be cancelled if they arrive without a responsible adult to transport them home from the procedure. Patient advised that all medication management instructions prior to procedure will need addressed by clinical staff. Patient expresses understanding with no further questions or concerns at this time. documented in this encounter [facility] 05-14-2024 Telephone encounter Note OPENED IN ERROR [facility] 05-14-2024 Miscellaneous Notes OPENED IN ERROR documented in this encounter [facility] 04-30-2024 Note HNO ID: [id number] Author: ZENON PRETTY MD Service: ? Author [...] the standard meal, (more content not included)... [facility] 04-30-2024 History of Present illness Narrative [...] which lowers the sensitivity of the study. Dipper Operator: FRANCISCO Transcribe Date/Time: Jan 30 2024 2:09P Dictated by : JOSELUIS MORA MD This examination was interpreted and the report reviewed and electronically signed by: JOSELUIS MORA MD on Jan 30 2024 2:10PM EST Results-Findings * * *Final Report* * * DATE OF EXAM: Jan 30 2024 1:51PM FVN 0017 - NM GASTRIC EMPTYING SOLID / [...] any questions regarding this interpretation, please call [phone]. If you are unable to reach us at the number above, please feel free to contact [facility] at [phone]. Results-Findings * * *Final Report* * * DATE OF EXAM: Jul 05 2023 11:20AM LN 0311 - CTA ABD/PELV W IVCON / [...] fluid collection. Bones/Soft Tissues: No significant finding. Injection Operator (topogram) images: No additional findings. Result History CTA ABD/PEL W IVCON (Order #[id number]) on 07/05/2023 - Order Result History R [...] bentyl prn 3 times/week. Last colonoscopy in [place] and normal. No response to creon Fecal [...] which included: *preparing to see the patient *[id number] patient care *completing clinical documentation *obtaining and/or [...] April 30, 2024 documented in this encounter [facility] 04-24-2024 Telephone encounter Note Pt of Dr. [...] back with any questions. Gisela Ponce RN [facility] Work Phone: 04-24-2024 Miscellaneous Notes Pt of Dr. Butler. Pt is scheduled with Dr. Menon for f/u OV 05/07/2024 (made on 12/12/2023). No need for f/u OV with Dr. Menon. Continue f/u with Dr. Butler as well as Dr. Ambriz (gen [facility]). Attempted to call pt, no answer. Left detailed voice msg that OV with be cancelled. Instructed to call back with any questions. Gisela Ponce RN documented in this encounter [facility] 04-16-2024 Hospital Discharge instructions Kenny Batista MD - 04/16/2024 10:18 AM EDT Patient Instructions after an endoscopy or colonoscopy The anesthetics, sedatives or narcotics which were given to you today will be acting in your body for the next 24 hours, so you might feel a little sleepy or groggy. This feeling should slowly wear off. Carefully read and follow the instructions. You received sedation today: - Do not drive or operate any machinery or power tools of any kind. - No alcoholic beverages today, not even beer or wine. - Do not make any important decisions or sign any legal documents. - No over the counter medications that contain alcohol or that may cause drowsiness. - Do not make any important decisions or sign any legal documents. While it is common to experience mild to moderate abdominal distention, gas, or belching after your procedure, if any of these symptoms occur following discharge from the GI Lab or within one week of having your procedure, call the [facility] to be advised whether a visit to your nearest Urgent Care or Emergency Department is indicated. Take this paper with you if you go. - If you develop an allergic reaction to the medications that were given during your procedure such as difficulty breathing, rash, hives, severe nausea, vomiting or lightheadedness.- If you experience chest pain, shortness of breath, severe abdominal pain, fevers and chills. -If you develop signs and symptoms of bleeding such as blood in your spit, if your stools turn black, tarry, or bloody - If you have not urinated within 8 hours following your procedure.- If your IV site becomes painful, red, inflamed, or looks infected. documented in this encounter [facility] Work Phone: 03-26-2024 Note HNO ID: [id number] Author: ZENON PRETTY MD Service: ? Author Type: Anesthesiologist Type: Progress Notes Filed: 03/26/2024 12:27 Note Text: power outage in building appt rescheduled Zenon Pretty MD [facility] 03-26-2024 History of Present illness Narrative power outage in building appt rescheduled Zenon Pretty MD documented in this encounter [facility] 03-12-2024 Telephone encounter Note Call placed to patient to relay below message, patient verbalized understanding. Order for c.diff placed Dara Butler Jr., DO [facility] 03-12-2024 Miscellaneous Notes Call placed to patient [...] callback with recommendations/order documented in this encounter [facility] 03-12-2024 Telephone encounter Note Patient calling in [...] advise, patient would like callback with recommendations/order [facility] 03-05-2024 History of Present illness Narrative Images from the original note were not included. REFLUX SURGERY NEW PATIENT CONSULTATION HISTORY AND PHYSICAL Date: 03/12/2024 Time: 9:49 AM Name: Rosa Alonzo This is a 23 y.o. female referred for MALS and abdominal pain. She notes symptoms atarted with pancreatitis at age 14 with no known cause and never happened again. Then did fine for years. She notes ongoing diarrhea, nausea, minimal vomiting. Then in 2019 got c diff. 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 Then had another abx, had another fecal transplant. Then stomack issues and diarrhea not getting better. Decided this was a microbiome issue. Tries to eat healthy. Avoids fast food and sugar. Red meat bothers her a lot. Then had GB removed due to a polyp. Pain in right side no different and goes around to back. A month after gb removed in november, got appendicitis a month later. Now has seen multiple docs. Recently had GES. Did a barium swallow. Has done GI panels. Primary symptom is diarrhea but biggest issue is back pain radiating to right side. 2 pancreas specialists told her not an issue. Told her pancreas totally healthy. On the scans told MALS seen. She is scheduled for the injection and evaluation coming up. Notes gets full quickly. Does not have much of an appetite. She was 130 lbs and now hard to stay over 110 lbs. Symptoms worsen with eating like nausea. Early satiety with only small portions. Meal recall: sourdough toast, yogurt, sub, tatertot casserole. Normally moves 2-3 times/day and usually diarrhea. Eats veggies a lot. Was on a probiotic for a while after the fecal transplants and has yoguret daily. Had an EUS to look at pancreas. Can't remember when egd done but might have been a few years ago. Told gastritis. No heartburn. Uses zofran and bentyl prn and uses 3 times/week. Has a bm first thing in am. Bm's do not correlate with eating. Last colonoscopy in [place] and normal. Sometimes feels like can't take a good full breath and hard to tell why. She tried creon and they made her feel sick like a stomach flu. Tried for 2 months. Fecal elastase test normal. Bentyl takes edge off of cramping. Cramping is less of an issue. Worse around her period. Her priods are very normal. She also has endometriosis and had surgery for this. Diarrhea worse around her periods. Last surgery for endometriosis 1-2 years ago. Made the periods better. ; Symptoms: bloating, abdominal pain, diarrhea Symptoms since 2015 History of PPI use GERD - Health Related Quality of Life Questionnaire (GERD- HRQL) Provider Impression 02/06/24 Dr. Merida: Is a 23-year-old woman referred for evaluation for possible median arcuate ligament syndrome. A 14 she had an episode of pancreatitis and was hospitalized for 5 days. After this resolved she had chronic upper abdominal pain off and on since that time. In 2019 she had severe bout of watery diarrhea and this was treated with antibiotics but failed x 2. Ultimately she underwent a fecal transplant which resolved her issues until 2020 when she needed to be on antibiotics for another reason and she relapsed requiring a second fecal transplant. Since that time she has had frequent stools and watery diarrhea which cause bloating and pain and discomfort in the lower abdomen. Her upper abdominal pain which is constant and respirophasic, it causes her to catch her breath when her abdominal pain in the upper abdomen is severe. It is sometimes aggravated by eating. This is not consistent. She also has a corresponding back pain which is slightly off the center to the right. She has had a extensive gastrointestinal workup including upper and lower endoscopies, gastric emptying study, upper GI series, and endoscopic ultrasound under Dr. Menon. She has had her gallbladder removed this year without improvement. She has had her appendix removed for appendicitis 2 weeks subsequent to the cholecystectomy. She has the anatomy for nutcracker syndrome and she relays some pain that may be related to her chronic diarrhea versus a pelvic congestion issue but her primary complaint is of her upper abdominal pain and difficulties with breathing and her back pain. She is quite concerned about her pancreas as well which is reported to be abnormal on CTs but her enzymes are normal. Assessment/Plan Diagnoses and all orders for this visit: Median arcuate ligament syndrome (CMS-HCC) - Referral to General Surgery; Future - Referral to Pain Medicine; Future Will refer for a general surgery evaluation with Dr. Ambriz and a celiac plexus block with Dr. Zenon Pretty. I will follow-up with her after her block. GES at [facility] 01/30/24: RESULT: Solid study demonstrates: - 70% gastric retention at 1 hour (normal range, 37-90%), - 47% retention at 2 hours (normal range, 30-60%), and - 4% retention at 4 hours (normal range, 0-10%). CT Angio abdomen pelvis 07/05/23 at [facility] Dr. Menon: IMPRESSION: Likely physiologic extrinsic compression of the celiac artery by the median arcuate ligament, more pronounced in the expiratory than the inspiratory phase ABDOMEN: Images of the aorta demonstrate normal [...] visualized femoral arteries are within normal limits. Heptobiliary Scan 11/2022: Diagnostic Colonoscopy 07/2022 [facility]: Impression: Unremarkable colon examination. No ulceration, no pseudomembrane seen. Successful positioning of 140 g of stool donor mixed with 350 mL of normal saline. Off PPI for (how long) How bad is the heartburn? 2 = Symptoms noticeable and bothersome but not every day Heartburn when lying down? 2 = Symptoms noticeable and bothersome but not every day Heartburn when standing up? 2 = Symptoms noticeable and bothersome but not every day Heartburn after meals? 2 = Symptoms noticeable and bothersome but not every day Does heartburn change your diet? 2 = Symptoms noticeable and bothersome but not every day Does heartburn wake you from sleep? 2 = Symptoms noticeable and bothersome but not every day Do you have difficulty swallowing? 2 = Symptoms noticeable and bothersome but not every day Do you have pain with swallowing? 2 = Symptoms noticeable and bothersome but not every day If you take medication, does this affect your daily life? 2 = Symptoms noticeable and bothersome but not every day How bad is the regurgitation? 2 = Symptoms noticeable and bothersome but not every day Regurgitation when lying down? 2 = Symptoms noticeable and bothersome but not every day Regurgitation when standing up? 2 = Symptoms noticeable and bothersome but not every day Regurgitation after meals? 2 = Symptoms noticeable and bothersome but not every day Does regurgitation change your diet? 2 = Symptoms noticeable and bothersome but not every day Does regurgitation wake you from sleep? 2 = Symptoms noticeable and bothersome but not every day How satisfied are you with your present condition? Neutral Total score (calculated by summing the individual scores of questions 1-15): 30 Greatest possible score 75 (worst symptoms). Lowest possible score 0 (no symptoms). Heartburn score (calculated by summing the individual scores of questions 1-6): 12 Worst heartburn symptoms: 30. No heartburn symptoms: 0. Score less than or equal to 12 with each individual question not exceeding 2 indicate heartburn elimination. Regurgitation score (calculated by summing the individual scores of questions 10-15): 10 Worst regurgitation symptoms: 30. No regurgitation symptoms: 0. Score less than or equal to 12 with each individual question not exceeding 2 indicate regurgitation elimination. PAST MEDICAL HISTORY: Past Medical History: Diagnosis Date Diarrhea has had c-diff x2 with fecal transfer PAST SURGICAL HISTORY: Past Surgical History: Procedure Laterality Date APPENDECTOMY CHOLECYSTECTOMY FAMILY HISTORY: No family history on file. SOCIAL HISTORY: Social History Tobacco Use Smoking status: Never Smokeless tobacco: Never Substance Use Topics Alcohol use: Not Currently Drug use: Yes Frequency: 3.0 times per week Types: Marijuana MEDICATIONS: Prior to Admission Medications: @CMEDREVIEW@ ALLERGIES: No Known Allergies REVIEW OF SYSTEMS: GENERAL: Negative for malaise, significant weight loss and fever NECK: Negative for lumps, goiter, pain and significant neck swelling RESPIRATORY: Negative for cough, wheezing or shortness of breath. CARDIOVASCULAR: Negative for chest pain, leg swelling or palpitations. GI: Negative for abdominal discomfort, blood in stools or black stools or change in bowel habits : No history of dysuria, frequency or incontinence MUSCULOSKELETAL: Negative for joint pain or swelling, back pain or muscle pain. SKIN: Negative for lesions, rash, and itching. PSYCH: Negative for sleep disturbance, mood disorder and recent psychosocial stressors. ENDOCRINE: Negative for cold or heat intolerance, polyuria, polydipsia and goiter. PHYSICAL EXAM: @VSTABLE@ Body mass index is 18.19 kg/m . General appearance: Skin: warm, no erythema or rashes Lungs: clear to percussion and auscultation Heart: regular rhythm and S1, S2 normal Abdomen: soft, non-tender, no masses, no organomegaly Extremities: Normal exam of the extremities. No swelling or pain. Neck: supple with no nodes IMPRESSION: Rosa Alonzo is a 23 y.o. female with This is a 23 y.o. female referred for MALS and abdominal pain. She notes symptoms atarted with pancreatitis at age 14 with no known cause and never happened again. Then did fine for years. She notes ongoing diarrhea, nausea, minimal vomiting. Then in 2019 got c diff. 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 Then had another abx, had another fecal transplant. Then stomack issues and diarrhea not getting better. Decided this was a microbiome issue. Tries to eat healthy. Avoids fast food and sugar. Red meat bothers her a lot. Then had GB removed due to a polyp. Pain in right side no different and goes around to back. A month after gb removed in november, got appendicitis a month later. Now has seen multiple docs. Recently had GES. Did a barium swallow. Has done GI panels. Primary symptom is diarrhea but biggest issue is back pain radiating to right side. 2 pancreas specialists told her not an issue. Told her pancreas totally healthy. On the scans told MALS seen. She is scheduled for the injection and evaluation coming up. Notes gets full quickly. Does not have much of an appetite. She was 130 lbs and now hard to stay over 110 lbs. Symptoms worsen with eating like nausea. Early satiety with only small portions. Meal recall: sourdough toast, yogurt, sub, tatertot casserole. Normally moves 2-3 times/day and usually diarrhea. Eats veggies a lot. Was on a probiotic for a while after the fecal transplants and has yoguret daily. Had an EUS to look at pancreas. Can't remember when egd done but might have been a few years ago. Told gastritis. No heartburn. Uses zofran and bentyl prn and uses 3 times/week. Has a bm first thing in am. Bm's do not correlate with eating. Last colonoscopy in [place] and normal. Sometimes feels like can't take a good full breath and hard to tell why. She tried creon and they made her feel sick like a stomach flu. Tried for 2 months. Fecal elastase test normal. Bentyl takes edge off of cramping. Cramping is less of an issue. Worse around her period. Her priods are very normal. She also has endometriosis and had surgery for this. Diarrhea worse around her periods. Last surgery for endometriosis 1-2 years ago. Made the periods better. We had an extensive discussion about her symptoms and we reviewed all of her studies in detail. I have many of her reports as they were done outside. I would like to get some of the CT scans. Her primary symptoms are the pain that radiates to the right side and the difficulty with breathing. And the other issue was her pancreas. Interestingly pancreatic enzymes made her worse. She also has worked with her microbiome ever since this whole pancreatitis happened and no relief. I would like to do my own endoscopy to evaluate her upper GI tract. We will get her CT scans from the outside. Have advised her to go ahead and get the injection. We will evaluate all we can to confirm that there is a high likelihood that median arcuate ligament syndrome is the true cause of her symptoms. We discussed that radiologic findings do not always correlate with symptoms but MALS is a possibilty. I want to exclude other plausible causes. PLAN: I will do an endoscopy I would like get pics from the last couple of CT scans. Get the injection. Let's put all of this together and see where we are. Dr. Whitney Ambriz M.D., MPH Director of Bariatric & Minimally Invasive Surgery [address] [address] T: [phone] F: [phone] Sita Santos RN Mortgage Specialist Nurse Multimedia Specialist, Voucher Clerk Patient Nursing Contact T: [phone] F: [phone] Urmila Baker LPN Coordinator T: [phone] F: [phone] documented in this encounter [facility] Work Phone: 03-05-2024 Instructions Whitney Ambriz MD MPH - 03/05/2024 2:15 PM EDT PLAN: I will do an endoscopy I would like get pics from the last couple of CT scans. Get the injection. Let's put all of this together and see where we are. Dr. Whitney Ambriz M.D., MPH Director of Bariatric & Minimally Invasive Surgery [place] [address] T: [phone] F: [phone] Sita Santos, VIRGILIO Mortgage Specialist Nurse Multimedia Specialist, Voucher Clerk Patient Nursing Contact T: [phone] F: [phone] Urmila Baker LPN Coordinator T: [phone] F: [phone] documented in this encounter [facility] Work Phone: 02-26-2024 History of Present illness Narrative New [...] which included preparing to see the patient, [id number] patient care, completing clinical documentation, obtaining and/or reviewing separately obtained history, performing a medically appropriate examination, counseling and educating the patient/family/caregiver, and independently interpreting results (not separately reported). Bola Braden MD February 26, 2024 error documented in this encounter [facility] 02-26-2024 Note HNO ID: [id number] Author: BOLA BRADEN MD Service: ? Author [...] Systems Gastroenterology (Submi (more content not included)... [facility] 02-26-2024 Note HNO ID: [id number] Author: BOLA BRADEN MD Service: ? Author Type: Physician Type: Progress Notes Filed: 02/26/2024 18:47 Note Text: error [facility] 02-26-2024 Nurse Note What is the reason for your visit today? Consult Who is your referring physician? None Are you having poor oral intake? NO Have you had unintentional weight loss of 15 lbs/7 Kg in the last 3-6 months? NO Bowels: diarrhea or regular Wound: None Temperature: No Drains: No [facility] 02-26-2024 Nurse Note What is the reason for your visit today? Consult Who is your referring physician? None Are you having poor oral intake? NO Have you had unintentional weight loss of 15 lbs/7 Kg in the last 3-6 months? NO Bowels: diarrhea or regular Wound: None Temperature: No Drains: No documented in this encounter [facility] 02-11-2024 History of Present illness Narrative [...] PATIENT PRESENTS WITH AN IMPLANTABLE OR ATTACHED PACKAGE HANDLER: No RADIOLOGY DEPARTMENT: General X-ray: Exam(s) Completed: GI/ Procedure(s): Upper GI with barium contrast PERIPHERAL IV DATA: Not applicable SIGNED BY: MATEO Lu) February 11, 2024 9:44 AM documented in this encounter [facility] 02-11-2024 Note HNO ID: [id number] Author: WAYNE TEMPLETON RT(R) Service: ? Author [...] PATIENT PRESENTS WITH AN IMPLANTABLE OR ATTACHED PACKAGE HANDLER: No RADIOLOGY DEPARTMENT: General X-ray: Exam(s) Completed: GI/ Procedure(s): Upper GI with barium contrast PERIPHERAL IV DATA: Not applicable SIGNED BY: RT Tabitha(R) February 11, 2024 9:44 AM [facility] 02-05-2024 History of Present illness Narrative Images from the original note were not included. Vascular Surgery Consultation, History, Physical Rosa Alonzo is a 23 y.o. year old female patient. History: Patient ID: Rosa Alonzo is a 23 y.o. female. Is a 23-year-old woman referred for evaluation for possible median arcuate ligament syndrome. A she had an episode of pancreatitis and was hospitalized for 5 days. After this resolved she had chronic upper abdominal pain off and on since that time. In 2019 she had severe bout of watery diarrhea and this was treated with antibiotics but failed x 2. Ultimately she underwent a fecal transplant which resolved her issues until 2020 when she needed to be on antibiotics for another reason and she relapsed requiring a second fecal transplant. Since that time she has had frequent stools and watery diarrhea which cause bloating and pain and discomfort in the lower abdomen. Her upper abdominal pain which is constant and respirophasic, it causes her to catch her breath when her abdominal pain in the upper abdomen is severe. It is sometimes aggravated by eating. This is not consistent. She also has a corresponding back pain which is slightly off the center to the right. She has had a extensive gastrointestinal workup including upper and lower endoscopies, gastric emptying study, upper GI series, and endoscopic ultrasound under Dr. Menon. She has had her gallbladder removed this year without improvement. She has had her appendix removed for appendicitis 2 weeks subsequent to the cholecystectomy. She has the anatomy for nutcracker syndrome and she relays some pain that may be related to her chronic diarrhea versus a pelvic congestion issue but her primary complaint is of her upper abdominal pain and difficulties with breathing and her back pain. She is quite concerned about her pancreas as well which is reported to be abnormal on CTs but her enzymes are normal. Past Medical History: Diagnosis Date Diarrhea has had c-diff x2 with fecal transfer Past Surgical History: Procedure Laterality Date APPENDECTOMY CHOLECYSTECTOMY Active Ambulatory Problems Diagnosis Date Noted No Active Ambulatory Problems Resolved Ambulatory Problems Diagnosis Date Noted No Resolved Ambulatory Problems Past Medical History: Diagnosis Date Diarrhea Review of Systems Constitutional: Negative. HENT: Negative. Eyes: Negative. Respiratory: Negative. Cardiovascular: Negative. Gastrointestinal: Negative. Endocrine: Negative. Genitourinary: Negative. Musculoskeletal: Negative. Skin: Negative. Allergic/Immunologic: Negative. Neurological: Negative. Hematological: Negative. Psychiatric/Behavioral: Negative. No Known Allergies Vitals: Visit Vitals BP 117/71 Pulse 77 Resp 18 Physical Exam: Vascular Physical Exam Constitutional: General: She is awake. HENT: Head: Normocephalic and atraumatic. Eyes: General: Vision grossly intact. Extraocular Movements: Extraocular movements intact. Pupils: Pupils are equal, round, and reactive to light. Cardiovascular: Rate and Rhythm: Normal rate. Pulses: Brachial pulses are 2+ on the right side and 2+ on the left side. Abdominal: General: Abdomen is flat. Tenderness: There is abdominal tenderness. Musculoskeletal: Neck: Normal range of motion and neck supple. Skin: General: Skin is warm and dry. Neurological: General: No focal deficit present. Mental Status: She is alert and oriented to person, place, and time. Sensory: No sensory deficit. Motor: No weakness. Labs: LABS: CBC with Differential: No results found for: WBC , RBC , HGB , HCT , PLT , MCV , MCH , MCHC , RDW , NRBC , SEGSPCT , BANDSPCT , BLASTSPCT , METASPCT , LYMPHOPCT , PROMYELOPCT , MONOPCT , MYELOPCT , EOSPCT , BASOPCT , MONOSABS , LYMPHSABS , EOSABS , BASOSABS , DIFFTYPE CMP: No results found for: NA , K , CL , CO2 , BUN , CREATININE , AGRATIO , GLUCOSE , GLU , PROT , CALCIUM , BILITOT , ALKPHOS , AST , ALT BMP: No results found for: NA , K , CL , CO2 , BUN , CREATININE , CALCIUM , GLUCOSE , GLU Magnesium:No results found for: MG Troponin: No results found for: TROPHS BNP: No results found for: BNP No results found for: PR1 , BMPR1A , INR , PROTIME , PTT , CHOL , LDLF , HDL Imaging: reviewed Assessment/Plan Diagnoses and all orders for this visit: Median arcuate ligament syndrome (CMS-HCC) - Referral to General Surgery; Future - Referral to Pain Medicine; Future Will refer for a general surgery evaluation with Dr. Ambriz and a celiac plexus block with Dr. Zenon Pretty. I will follow-up with her after her block. documented in this encounter [facility] Work Phone: 01-30-2024 History of Present illness Narrative RADIOLOGY [...] PATIENT PRESENTS WITH AN IMPLANTABLE OR ATTACHED PACKAGE HANDLER: No CREATININE: Creatinine Date Value Ref Range [...] [address] PERFORMED: No IV SITE: NM only - not applicable, oral or physician administered agents given to patient POST EXAM PIV STATUS: Not applicable PROCEDURE TYPE: NM GET: 1.1 mCi Tc99m SULFUR COLLOID was administered orally via 4 oz eggbeaters and 4 ounces of water orally. ADMINISTRATION TIME: 826 PATIENT DISCHARGED TO: Ambulatory patient, left [place] department area. A Diagnostic radioactive procedure has taken place, with no further precautions necessary other than routine body substance precautions. More information regarding radiation safety can be found using this link: [email or web address] [email or web address]%20Nuclear%20 [email or web address].[email or web address] SIGNATURE: MARTÍN De La Rosa PATIENT NAME: Rosa Alonzo DATE: January 30, 2024 TIME: 10:38 AM PAGER/CONTACT #: documented in this encounter [facility] 01-30-2024 Note HNO ID: [id number] Author: EVELIA HARP CNMT Service: ? Author Type: Felt Hanger Type: Progress Notes Filed: 01/30/2024 10:40 Note [...] PATIENT PRESENTS WITH AN IMPLANTABLE OR ATTACHED PACKAGE HANDLER: No CREATININE: Creatinine Date Value Ref Range [...] [address] PERFORMED: No IV SITE: NM only - not applicable, oral or physician administered agents given to patient POST EXAM PIV STATUS: Not applicable PROCEDURE TYPE: NM GET: 1.1 mCi Tc99m SULFUR COLLOID was administered orally via 4 oz eggbeaters and 4 ounces of water orally. ADMINISTRATION TIME: 826 PATIENT DISCHARGED TO: Ambulatory patient, left [place] department area. A Diagnostic radioactive procedure has taken place, with no further precautions necessary other than routine body substance precautions. More information regarding radiation safety can be found using this link: [email or web address] [email or web address]-% 20Diagnostic%20Nuclear%20Medicine%2 0Procedures.pdf SIGNATURE: MARTÍN De La Rosa PATIENT NAME: Rosa Alonzo DATE: January 30, 2024 TIME: 10:38 AM PAGER/CONTACT #: [facility] 01-29-2024 Telephone encounter Note SPOKE WITH PT TO CONFIRM APT TO AND EXPLAIN THE EXAM AND ANY PREP. [facility] 01-29-2024 Miscellaneous Notes SPOKE WITH PT TO CONFIRM APT TO AND EXPLAIN THE EXAM AND ANY PREP. documented in this encounter [facility] 12-28-2023 Instructions Dara Butler Jr., DO - 12/28/2023 3:15 PM EDT Check gastric emptying study Check Upper GI series Start amitriptyline Start pantoprazole Stop Carafate May use Levbid as needed documented in this encounter [facility] 12-28-2023 History of Present illness Narrative [...] an issue, start amitriptyline. [facility] if symptoms fail to improve. Although the [...] last colonoscopy was 8 months ago in [place]. Start amitriptyline Keep appt with Dr. Menon [...] divisum. 12/01/22 HIDA scan was done at [facility]: Normal study EF 69% US: 10/31/22: [...] with 350 mL of normal saline. 08/02/22 [facility] Gastroenterology Rosa Alonzo is [...] Lymph 1.00 - 4.00 k/uL 2.43 2.06 [place]% % 8.4 8.1 Abs [place] <0.87 k/uL 0.47 0.42 E[place]% % 3.4 [...] Dara Butler Jr. documented in this encounter [facility] 12-28-2023 Note HNO ID: [id number] Author: DARA BUTLER JR, DO Service: ? [...] an issue, start amitriptyline. Consider referral to [facility] if symptoms fail to improve. Although the [...] last colonoscopy was 8 months ago in [place]. Start amitriptyline Keep appt with Dr. Menon [...] divisum. 12/01/22 HIDA scan was done at [facility]: Normal study EF 69% US: 10/31/22: (care everywhere) Liver normal Gallbaldder appears normal with no stones or sludge. No gallbladder wall thickening CBD 1.[address] abd/pel w/IV cont: 10/18/22: (scanned): Liver: no enlargement, atrophy, or focal lesion Biliary: no dilation or calcification Pancreas: haziness and p (more content not included)... [facility] 12-26-2023 Telephone encounter Note Please see [...] and advise. Thank you Analia Estevez RN [facility] 12-26-2023 Miscellaneous Notes Please see attached [...] Analia Estevez RN documented in this encounter [facility] 12-24-2023 Telephone encounter Note Maintain Levbid. Start Carafate. Ok to move up appt to December. Dara Butler Jr., DO Please call pt to set up an office visit in December, may use hold spot if needed. Thank you. Analia Estevez RN [facility] 12-24-[address] Butler, would you prefer to see pt sooner in December? She was started on Levbid recently with no real improvement and requesting sooner office visit? Wondering if she might benefit from seeing functional medicine? Please review and advise. Analia Estevez RN [facility] 12-05-2023 History of Present illness Narrative [...] KAREN Mccoy APRN.CNP documented in this encounter [facility] 12-05-2023 Note HNO ID: [id number] Author: ARIELLA MCCOY APRN.CNP Service: ? Author [...] that may arise. Follow up: KAREN Mccoy APRN.SITE PLANNER [facility] 12-05-2023 Nurse Note What is the [...] clean & dry Temperature: No Drains: No [facility] 12-05-2023 Nurse Note What is the [...] No Drains: No documented in this encounter [facility] 11-21-2023 Note HNO ID: [id number] Author: ?, ?, ? Service: ? Author Type: ? Type: Plan of Care Filed: 11/26/2023 17:37 Note Text: PHARMACY BEDSIDE DELIVERY SERVICE Patient Name: Rosa Alonzo The marked outpatient medications were filled and picked up at [facility] Medication List START taking these [...] or your Primary Care Provider. Miguel Flores (Stunner) PAGER: [phone] November 26, 2023 5:37 PM [facility] 11-21-2023 Note HNO ID: [id number] Author: MARVIN MARQUIS APRN.HEALTHCARE APPLICATIONS ANALYST Service: Anesthesiology Author Type: Nurse Variety Lathe Operator Type: Anesthesia Procedure Notes Filed: 11/21/2023 14:23 Note Text: ANESTHESIOLOGY PROCEDURE NOTE Airway General Information Procedure Start Time/Medication Administration: 11/21/2023 2:14 PM Procedure End Time: 11/21/2023 2:22 PM Patient location during procedure: OR Timeout Performed Pre-procedure: timeout performed Patient identity confirmed: arm band, care marketing team lead and patient Staffing Anesthesiologist: Moshe Krishnamurthy DO HEALTHCARE APPLICATIONS ANALYST: Marvin Marquis APRN.HEALTHCARE APPLICATIONS ANALYST Performed by: HEALTHCARE APPLICATIONS ANALYST Indications and Patient Condition Indications for airway [...] lips and teeth intact. SIGNATURE: Marvin Marquis APRN.HEALTHCARE APPLICATIONS ANALYST PATIENT NAME: Rosa Alonzo DATE: November 21, 2023 TIME: 2:22 PM CSN: [id number] [facility] 11-16-2023 Telephone encounter Note Images from the original note were not included. Sedrick Rushing MD You; Wilfredo Avila OCCA; Avw Card Nurse 9 hours ago (10:29 PM) AM MN Everyone, As stated previously she is optimized [...] surgery. Hope this helps! Augustus Rushing MD [facility] 11-16-2023 Miscellaneous Notes Images from the original note were not included. Sedrick Rushing MD You; Wilfredo Avila OCCA; Avw Card Nurse 9 hours ago (10:29 PM) AM MN Everyone, As stated previously she is optimized [...] as scheduled? Event monitor preliminary reading in inContact View Cardiac Outpatient Recording/Telemetry [ID [id number]] ECHO completed in EPIC. Of note she also has been to the ED 2 times for her palpitations since your visit, with c/o of palpations intermittently throughout the day. she denies associated SOB or dizziness. She reports her symptoms have not changed. Thank you, Viktoria Causey PA-C [facility] documented in this encounter [facility] 11-15-2023 Telephone encounter Note Plan: - [...] a cardiac standpoint. Per his last OV [facility] 11-15-2023 Telephone encounter Note Images from the original note were not included. Greetings Dr. Rushing , Your patient was seen for preanesthesia consult 11/15/2023. Rosa Alonzo is scheduled for LAPAROSCOPIC CHOLECYSTECTOMY with Dr. Seema Davis on 11/21/2023. Do you feel they are medically optimized and ok to proceed as scheduled? Event monitor preliminary reading in inContact View Cardiac Outpatient Recording/Telemetry [ID [id number]] ECHO completed in inContact. Of note she also has been to the ED 2 times for her palpitations since your visit, with c/o of palpations intermittently throughout the day. she denies associated SOB or dizziness. She reports her symptoms have not changed. Thank you, Viktoria Causey PA-C Preanesthesia Consultation Clinic [facility] 11-15-2023 History and physical note HISTORY [...] SOB. Pulse today 75, regular rhythm today [id number]- 0 Ejection Fraction - Result: 63 % [...] COVID-19 original vaccine, age 12+ yr, monovalent ([employer]-Tubis - PURPLE TOP) 03/16/2021 Imm Admin: COVID-19 original vaccine, age 12+ yr, monovalent ([employer]-BIONTECH - PURPLE TOP) REVIEW OF SYSTEMS: positive findings are BOLD PAIN ASSESSMENT: Pain Pain Level: 5 Pain Location: Back-Lower Description: Aching Duration Units: Months Frequency: Continuous Intervention/Comfort measure: Relaxation, Heat General: No weight loss, malaise or fevers. Neuro: No history of TIA's, stroke, BOX PERSON tumor, impaired sensorium, hemiplegia, paraplegia or quadraplegia. No neurological symptoms or problems. Respiratory: No history of current cough or dyspnea, or pneumonia in the past 6 weeks. No history of respiratory/pulmonary symptoms or problems. Cardiovascular: Palpitations (SVT) Negative for Recent IA, CAD, CHF, HTN Negative for chest pain, [...] 402 QTC Calculation (Bazett) 424 Calculated P [place] 76 Calculated R [place] 37 Calculated T [place] 57 Impression NORMAL SINUS RHYTHM WITH SINUS ARRHYTHMIA POSSIBLE LEFT ATRIAL ENLARGEMENT RSR' PATTERN IN V1 SUGGESTS INCOMPLETE RIGHT BUNDLE BRANCH BLOCK BORDERLINE ECG NO PREVIOUS ECGS AVAILABLE Confirmed by JENNIFER SURESH MD ([id number]) on 10/22/2023 1:00:28 PM Most recent Echo Recent Results (from the past 16701 hour(s)) ECHO Collection Time: 11/07/23 1:59 PM [...] were present. Isolated VEs were frequent (6.9%, 85487), VE Couplets were rare (<1.0%, 21), and no VE Triplets were present. Ventricular Bigeminy and Trigeminy were present. Instructions Given to Patient: Instructions located in the after visit summary. Patient given verbal and written preop instructions and voices comprehension and compliance. SIGNATURE: Viktoria Causey PA-C PATIENT NAME: Rosa Alonzo DATE: 11/15/2023 TIME: 2:43 PM [facility] 11-15-2023 History and physical note HISTORY [...] SOB. Pulse today 75, regular rhythm today [id number]- 0 Ejection Fraction - Result: 63 % [...] fevers. Neuro: No history of TIA's, stroke, BOX PERSON tumor, impaired sensorium, hemiplegia, paraplegia or quadraplegia. No neurological symptoms or problems. Respiratory: No history of current cough or dyspnea, or pneumonia in the past 6 weeks. No history of respiratory/pulmonary symptoms or problems. Cardiovascular: Palpitations (SVT) Negative for Recent IA, CAD, CHF, HTN Negative for chest pain, [...] 402 QTC Calculation (Bazett) 424 Calculated P [place] 76 Calculated R [place] 37 Calculated T [place] 57 Impression NORMAL SINUS RHYTHM WITH SINUS ARRHYTHMIA POSSIBLE LEFT ATRIAL ENLARGEMENT RSR' PATTERN IN V1 SUGGESTS INCOMPLETE RIGHT BUNDLE BRANCH BLOCK BORDERLINE ECG NO PREVIOUS ECGS AVAILABLE Confirmed by JENNIFER SURESH MD ([id number]) on 10/22/2023 1:00:28 PM Most recent Echo Recent Results (from the past 15014 hour(s)) ECHO Collection Time: 11/07/23 1:59 PM [...] were present. Isolated VEs were frequent (6.9%, 08350), VE Couplets were rare (<1.0%, 21), and no VE Triplets were present. Ventricular Bigeminy and Trigeminy were present. Instructions Given to Patient: Instructions located in the after visit summary. Patient given verbal and written preop instructions and voices comprehension and compliance. SIGNATURE: Viktoria Causey PA-C PATIENT NAME: Rosa Alonzo DATE: 11/15/2023 TIME: 2:43 PM documented in this encounter [facility] 11-12-2023 Instructions Viktoria Causey PA-C - 11/12/2023 9:12 AM EDT PATIENT PREOPERATIVE INSTRUCTIONS Seema Davis MD has scheduled you for your procedure at this surgery center: [facility]: [phone] --[address] [address]. Please check in on the 1st floor [...] Procedures: - YOU MUST HAVE A RESPONSIBLE INSTRUCTIONAL TECHNOLOGY SPECIALIST TAKE YOU HOME. A GRIEVANCE AND APPEALS SPECIALIST OR TELEVISION CAMERAMAN CANNOT BE MADE A RESPONSIBLE INSTRUCTIONAL TECHNOLOGY SPECIALIST. - We recommend that a responsible person stays with you overnight to take care of you. - You cannot stay in a hotel alone after outpatient surgery. You will not be permitted to have your surgery, if you do not have someone to take care of you. If you already have an Advance Directive, please fax a copy to [phone] or email to for it to be [...] Viktoria Causey PA-C documented in this encounter [facility] 11-05-2023 Miscellaneous Notes Spoke with Ms Alonzo over the phone. For now, I will wait for the results of the Zio and the Echo and will reach back out. There is a chance that she may need to see EP, but I would like to see how frequently she is in Bigeminy. documented in this encounter [facility] 11-01-2023 Miscellaneous Notes Called and spoke [...] ongoing symptoms Staying hydrated Concerned Call CELL [phone] Leave Detailed messages The pt is calling. Please review the my chart message from today for an EKG attachment she sent from her ED visit last night. She went to the [facility] ED. Are you able to revue her [...] message. Thank you documented in this encounter [facility] 10-23-2023 Miscellaneous Notes Received form requesting cardiac evaluation for surgical clearance from [facility] General Surgery with Dr. Seema Davis. Surgery Date: 11-21-2023 Fax to [facility] General Surgery: [phone] Rushing to review. CHATO Ramirez documented in this encounter [facility] 10-23-[address] Sedrick Rushing's office for cardiac clearance at [phone]. Abnormal heart sounds with gallbladder consult on 10/19/23. Received confirmation. Sent to scanning documented in this encounter [facility] 10-22-2023 Nurse Note EVENT MONITOR DISPOSABLE PATCH INSTRUCTIONS Patient Name: Rosa Alonzo Clinic Number: [id number] Skin prepped and cleansed with alcohol Patch secured to prepped area Monitor Activated Serial #: [id number] Patient Instructed: Prescribed order timeframe Bathing guidelines Usage of event button and diary documentation Return of monitor at the end of prescribed order Call with problems [phone] or [phone]. [phone] Patient expresses a good understanding of instructions Azael Larson LPN documented in this encounter [facility] 10-22-2023 History of Present illness Narrative Images from the original note were not included. [facility] Department of Cardiovascular Medicine SECTION OF REGIONAL CARDIOLOGY OUTPATIENT VISIT DATE October 21, 2023 OUTPATIENT VISIT TYPE NEW CONSULTATION PRIMARY CARE PHYSICIAN: Analia Holliday [address] [place] [address] [place] [address] CHIEF COMPLAINT: Palpitations HISTORY OF PRESENT ILLNESS: [...] Shortness of Breath, Unknown, Vomiting CURRENT MEDICATIONS: rvcqze-grpmtxfj-coqzqbm (CREON) 24,000-76,000 -120,000 unit delayed release capsule [...] on File Prior to Visit Medication Sig gsfuov-kjeiaaxn-mjbrzra (CREON) 24,000-76,000 -120,000 unit delayed release capsule [...] INFORMATION: Sedrick Rushing MD Cardiovascular Medicine Staff [facility] [address] [place] [address] documented in this encounter [facility] 10-22-2023 Note HNO ID: [id number] Author: SEDRICK RUSHING MD Service: ? Author Type: Physician Type: Progress Notes Filed: 10/22/2023 15:17 Note Text: [facility] Department of Cardiovascular Medicine SECTION OF REGIONAL CARDIOLOGY OUTPATIENT VISIT DATE October 21, 2023 OUTPATIENT VISIT TYPE NEW CONSULTATION PRIMARY CARE PHYSICIAN: Analia Holliday [address] [facility] [facility] [place] [address] CHIEF COMPLAINT: Palpitations HISTORY OF PRESENT ILLNESS: [...] Shortness of Breath, Unknown, Vomiting CURRENT MEDICATIONS: iqvlpf-zxgkiaib-atfjdrm (CREON) 24,000-76,000 -120,000 unit delayed release capsule [...] on File Prior to Visit Medication Sig sigxzc-akohmegp-jhdakaz (CREON) 24,000-76,000 -120,000 unit delayed release capsule [...] INFORMATION: Sedrick Rushing MD Cardiovascular Medicine Staff [facility] [id number] [place] [address]. [place] [address] [facility] 10-19-2023 Note HNO ID: [id number] Author: DAXA GRAY RN Service: ? Author [...] Daxa Gray RN In Department: GENERAL SURGERY [facility] 10-19-2023 Note HNO ID: [id number] Author: DAXA GRAY RN Service: ? Author [...] EF-69%. This measurement is within normal limits [facility] 10-19-2023 Note HNO ID: [id number] Author: SEEMA DAVIS MD Service: ? Author [...] Take 4 mg by mouth as needed. 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 Lives with her . [...] the date of the service which included jcrf-ka-qfiq patient care, completing clinical documentation, obtaining and/or reviewing separately obtained history, performing a medically appropriate examination, counseling and educating the patient/family/caregiver, and independently interpreting results (not separately reported). Seema Davis MD . [facility] 10-19-2023 Note Education (GEMT) ROSA ALONZO ([id number]) 2000 F Date Time Provider Department 10/19/23 DAXA GRAY [facility] Reason for Visit: Education Of Patient/family [904] Primary Visit Diagnosis:Acalculous cholecystitis [K81.9] Order(s):PT ED DIGESTIVE DISEASE [3502665] Order #: [id number]: 1 During your visit today, we recorded [...] Fully Assessed Prescriptions as of 10/19/2023 - lingbd-udymhonn-mwvmnsd (CREON) 24,000-76,000 -120,000 unit delayed release capsule [...] Encounter Status:Closed by DAXA GRAY on 10/19/[address] [facility] 09-11-2023 Miscellaneous Notes Please refer to [facility] dated 09/11/2023. Gisela Minnich, RN Patient calling to see if she is to follow up with Dr. Menon. He did recommend surgeon consult for cholecystectomy. Patient is asking for referral Please adivse patient documented in this encounter [facility] 09-06-2023 Nurse Note [id number] Pt in [...] REFERRAL (RECOMMENDATION): None documented in this encounter [facility] 09-06-2023 History and physical note PROCEDURAL [...] mouth once daily. 09/05/2023 at 1000 Yes fvzvff-jssyaqnr-vwjklgx (CREON) 24,000-76,000 -120,000 unit delayed release capsule [...] TIME: 12:20 PM documented in this encounter [facility] 06-17-2023 Miscellaneous Notes To summarize the [...] in one of her images report from [place]. I will recommend CT-angiography to r/o gut [...] MD Hykes, David L Jr., DO; Gisela Ponce RN Dawn: Call [...] Gisela Ponce RN documented in this encounter [facility] 06-06-2023 History and physical note Images [...] her mother who works as in at [employer] [facility]. The problem started when she was [...] an issue, start amitriptyline. [facility] fail to [facility]. 1. Chronic [...] divisum. 12/01/22 HIDA scan was done at [facility]: Normal study EF 69% US: 10/31/22: [...] with 350 mL of normal saline. 08/02/22 [facility] Gastroenterology Rosa Alonzo is [...] Abs Lymph 1.00 - 4.00 k/uL 2.17 [place]% % 8.1 Abs [place] <0.87 k/uL 0.36 Eosin% % 5.6 Abs [...] Menon MD, FACP documented in this encounter [facility] 06-01-2023 Evaluation note Encounter Date Diagnosis Assessment Notes May, Vitamin D insufficiency (ICD-10 - E55.9) [facility] Other 11-02-2023 Evaluation note* Encounter Date Diagnosis Assessment Notes Treatment Notes Treatment Clinical Notes May, Well adult exam (ICD-10 - Z00.00) Routine lab work ordered. She will follow up with eye doctor due to some floaters that she is having. Follow routinely with dentist and [facility]. Specialty notes reviewed as received. Patient [...] Lexapro 10 mg daily. Will continue this. [facility] Other 10-31-2023 Instructions* Patient Instructions* Dara Butler Jr., DO - 05/22/2023 11:39 AM EDT Start amitriptyline Keep appt with Dr. Menon for pancreatic / biliary clinic documented in this encounter[facility] History of Present illness Narrative* Dara [...] last colonoscopy was 8 months ago in [place]. Past GI workup 05/08/23 ER visit notes [...] 8:00 AM EDT Office Visit [facility] [place] [address] Kyree Noguera MD Abnormal flushing and sweating [...] per patient. She sees a specialist to [facility] doctor Butler for GI- currently awaiting genetic [...] dicyclomine 12/01/22 HIDA scan was done at [facility]: Normal study EF 69% US: 10/31/22: [...] with 350 mL of normal saline. 08/02/22 [facility] Gastroenterology Rosa Alonzo is [...] Negative Mitogen minus Nil >=0.50 IU/mL >9.96 [facility] GI PANEL (PCR) (04/02/2023 10:00 AM EDT) Results - [facility] GI PANEL (PCR) (04/02/2023 10:00 AM EDT) Pathologist [facility] CAMPYLOBACTER NOT DETECTED NOT DETECTE [facility] CLOSTRIDIUM [...] Abs Lymph 1.00 - 4.00 k/uL 2.17 [place]% % 8.1 Abs [place] <0.87 k/uL 0.36 Eosin% % 5.6 Abs [...] BY MOUTH THREE TIMES DAILY WITH MEALS gcpbge-lcuilhwg-jbtdblf (ZENPEP) 40,000-126,000- 168,000 unit delayed release capsule [...] an issue, start amitriptyline. [facility] if symptoms fail to improve. 1. Chronic [...] studies Dara Butler Jr. documented in this encounter[facility] Miscellaneous Notes* Telephone Encounter - Analia [...] Dara Butler Jr., DO documented in this encounterOhio[facility] Miscellaneous Notes* Telephone Encounter - Analia Estevez RN - 04/14/2023 9:23 AM EDT Patient has viewed results per [employer]. Analia Estevez RN * Telephone Encounter - Analia Estevez RN - 04/14/2023 9:23 AM EDT ----- Message from Dara Butler Jr., DO sent at 04/13/2023 4:04 PM EDT ----- MRI negative for pancreatitis and anatomic pancreatic abnormalities. Dara Butler Jr., DO documented in this encounterOhio[facility]09-[facility]23 Miscellaneous Notes* [facility] - Yessi Adkins MRI Tech [...] 2023 TIME: 3:13 PM documented in this encounterOhio[facility]09-22-2023 Progress note* [facility] - Yessi Adkins [...] DATE: April 13, 2023 TIME: 3:13 PM [facility]09-08-2023 Miscellaneous Notes* Telephone Encounter - Analia Estevez RN - 03/30/2023 10:33 AM EDT Patient has viewed results per [employer]. Analia Estevez RN * Telephone Encounter - [...] CDIFF. She had this testing done through [facility]. She is working on getting faxed results to office. Pt states she feels fine, no symptoms but would like to follow up with nurse. Please advise Patient has been identified by name and birthdate. Duration of symptoms: N/A Person calling: self Call patient at: at home [phone] (home) [phone] (cell) Was an appointment scheduled: No Closing statement: Results or non-symptom based questions: Thank you for calling [facility], your call will be returned within the next business day. Eva Wynne documented in this encounterOhiohealth [facility]09-05-2023 Evaluation note* Encounter Date Diagnosis Assessment Notes Treatment Notes Treatment Clinical Notes Mar, Diarrhea (ICD-10 - R19.7) [facility] Other 09-01-2023 Evaluation note* Encounter Date Diagnosis Assessment Notes Treatment Notes Treatment Clinical Notes Mar, C. difficile diarrhea (ICD-10 - A04.72) [facility] Other 09-01-2023 Miscellaneous Notes* Telephone Encounter - Bryson Arredondo MA - 03/23/2023 7:59 AM EDT Pt was notified via . * Telephone Encounter - Meredith Gee MD - 03/22/2023 9:36 PM EDT Please Call patient if MyChart note not read to review results/released to My Chart if tests completed at [facility]: Improved/Normal labs and no inflammation. Take [...] hepatitis panel, quantiferon tb; documented in this encounterOhiohealth [facility]08-30-2023 Miscellaneous Notes* Telephone Encounter - Analia Estevez RN - 03/21/2023 11:02 AM EDT Results were viewed by patient per mychart. Analia Estevez RN * Telephone Encounter - Analia Estevez RN - 03/21/2023 11:00 AM EDT ----- Message from Dara Butler Jr., DO sent at 03/21/2023 7:46 AM EDT ----- Labs essentially unremarkable including negative celiac Dara Butler Jr., DO documented in this encounterOhio[facility]08-29-2023 Evaluation note* Encounter Date Diagnosis Assessment Notes Treatment Notes Treatment Clinical Notes Feb, Diarrhea (ICD-10 - R19.7) [facility] Other 08-25-2023 Miscellaneous Notes* Telephone Encounter - Analia Estevez RN - 03/16/2023 12:38 PM EDT Per our discussion please review and sign orders for MRI per out discussion based off [employer] message per patient. Analia Estevez RN documented in this encounterOhiohealth [facility]07-18-2023 Instructions* Patient Instructions* Dara Butler Jr., DO - 02/06/2023 10:35 AM EDT Check labs Start Levbid Start Zenpep Stop dicyclomine documented in this encounterOhio[facility]07-18-2023 History of Present illness Narrative* Dara [...] office visit: 09/11/22 (care everywhere): Dr. Rehan Lee Clinton is a 21 y.o. female with PMHx [...] REFLEX Dara Butler Jr. documented in this encounterOhiohealth [facility]06-05-2023 Miscellaneous Notes* Telephone Encounter - Ana Eckert - 12/25/2022 10:22 AM EDT Spoke with patient Scheduled Consult to GI for first avail at [place] in January Did not schedule Med Gen Consult. Still pending review- patient said she will schedule when she sees Dr Luke Eckert December 25, 2022 10:27 AM * Telephone Encounter - Bryson Arredondo MA - 12/25/2022 9:22 AM EDT Pt has been notified via [employer] * Telephone Encounter - Meredith Gee MD - 12/23/2022 12:53 AM EDT Please call patient. Thank you for the update and your kind words. Sorry to hear about your discomfort. Placed a consult to medical genetics and GI as requested. May schedule at your convenience. Hope you feel better soon! Warm regards, :) documented in this encounterOhio[facility]05-03-2023 Evaluation note* Encounter Date Diagnosis Assessment [...] K58.0) Recommended Benefiber Follow up 2 months [facility] Other 02-20-2023 [facility] Follow-Up Patient Visit CHIEF COMPLAINT Chief [...] date list that I (more content not included)...[facility]02-08-2023 [facility] Follow-Up Patient Visit CHIEF COMPLAINT Chief [...] HPI GENITOURINARY: negative IN (more content not included)...[facility]01-24-2023 NotePatient: Rosa Alonzo Pre-sedation Evaluation: [...] Only, Palpitations, Rash and Shortness of breath 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 [facility] Gastroenterology Follow-Up Patient Visit [...] conjunctiva pink and normal (more content not included)...[facility]01-01-2023 History general Narrative - Reported* Type Description Date Medical History Esophageal reflux Medical History anxiety Surgical History wisdom teeth extract Surgical History FMT 07/2022 Hospitalization History pancreatitis [facility] Other 10-06-2022 Evaluation note* Encounter Date Diagnosis Assessment Notes Treatment Notes Treatment Clinical Notes Apr, Irritable bowel syndrome with diarrhea (ICD-10 - K58.0) PATIENT DOES HAVE 3 BOWEL MOVEMENTS A DAY SOMETIMES 1 Apr, RUQ pain (ICD-10 - R10.11) [facility] Other 08-24-2022 History of Present illness Narrative* Mckenzie Kincaid RN - 03/15/2022 3:30 PM EDT Patient verified full name and * Phani Presley MD - 03/15/2022 3:30 PM EDT GI CLINIC PROGRESS NOTE PATIENT NAME: Rosa Henao ATTENDING: Phani Presley MD : 2000 AGE: 21 y.o. 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 Symptoms persist, possible post infection IBS vs recurrent c. Diffinfection. Active marijuana user, smokes viper as well. DISPOSITION AND PLAN: 1. Will obtain c diff toxin Ag 2. Stool enteric panel 3. [place] of [place] 4. Imodium prn (after infection is ruled out) 5. Marijuana and viper abstinence counseling provided. Face to face interaction: 25 Time to complete visit: 60 Phani Presley MD Field Assistant Division of Gastroenterology, Hepatology and Nutrition Department of Internal Medicine [facility] documented in this encounterOSU [facility] [place] Instructions* Patient Instructions* Phani Presley MD - 03/15/2022 3:30 PM EDT C diff toxin Ag Enteric stool panel Dicyclomine Imodium prn if infection is ruled out documented in this encounterU [facility] [place]2022 Evaluation note * Encounter Date Diagnosis Assessment Notes Treatment Notes Treatment Clinical Notes Sep, C. difficile diarrhea (ICD-10 - A04.72) START DIFICID DIRECTED REFERRAL TO [facility] FOR RECURRET C.DIFF [facility] Other 11-30-2021 NoteChief Complaint consultation for nausea [...] Use:., 06/21/2021 Family History Cancer: Father. Stroke: Mother.[facility] Center[facility]:Result Comment: Electronically Signed By: KALEB MACKEY, Ana Daley.nilo\Date and Time Signed: 06/21/21 20:44 [id number] Evaluation note* Encounter Date Diagnosis Assessment Notes [...] Patient care instructions given in writting by [facility] Care At Home document. [facility] Other 05-18-2021 NoteChief Complaint Consultation for Colonoscopy [...] Use:., 12/07/2020 Family History Cancer: Father. Stroke: Mother.[facility] CenterComment on above:Result Comment: Electronically Signed By: KALEB MACKEY, Ana Lan\Date and Time Signed: 12/07/20 17:18 [id number] Miscellaneous Notes* Result Encounter Note - Rickie Naqvi DO - 12/02/2020 10:00 AM EDT CTA head and neck are both normal. No abnormalities noted. documented in this encounterOhio[facility] noteNo [employer] Other Evaluation note* Diagnosis Diarrhea, unspecified type- Primary [facility]* Diagnosis Generalized abdominal pain- Primary Abdominal pain, generalized documented in this encounter [facility] note* Diagnosis Chronic pancreatitis, unspecified pancreatitis type (HCC)- Primary Generalized abdominal pain Abdominal pain, generalized Intestinal malabsorption, unspecified type documented in this encounter [facility] note* Diagnosis Chronic recurrent pancreatitis (HCC)- Primary Chronic pancreatitis documented in this encounter [facility] note* Diagnosis Chronic pancreatitis, unspecified pancreatitis type (HCC)- Primary Generalized abdominal pain Abdominal pain, generalized Irritable bowel syndrome with diarrhea Irritable bowel syndrome History of Clostridioides difficile colitis documented in this encounter [facility] note* Diagnosis Family history of ischemic heart disease and other diseases of the circulatory system History of acute pancreatitis Personal history of other diseases of digestive system Carotid artery aneurysm (HCC) Aneurysm of artery of neck documented in this encounter [facility] noteNo assessment information [facility] Work Phone: Evaluation note* Diagnosis RUQ pain- Primary Abdominal pain, right upper quadrant History of pancreatitis Personal history of other diseases of digestive system Nausea Nausea alone Diarrhea, unspecified type History of Clostridium difficile infection Personal history of other infectious and parasitic disease documented in this encounter [facility] note* Diagnosis Generalized abdominal pain- Primary Abdominal pain, generalized RUQ pain Abdominal pain, right upper quadrant Chronic recurrent pancreatitis (HCC) Chronic pancreatitis Diarrhea, unspecified type documented in this encounter [facility] note* Diagnosis Chronic recurrent pancreatitis (HCC) Chronic pancreatitis documented in this encounter [facility]* Diagnosis Palpitations- Primary Other supraventricular tachycardia (HCC) Cholecystitis Cholecystitis, unspecified documented in this encounter [facility]* Diagnosis Pre-op examination- Primary Preoperative examination, unspecified Palpitations Organic anxiety syndrome Anxiety disorder in conditions classified elsewhere Cholecystitis Cholecystitis, unspecified documented in this encounter [facility]* Diagnosis Onset Date Resolution Status Esophageal reflux acute LOCO (generalized anxiety disorder) acute Irritable bowel syndrome with diarrhea acute Vitamin D insufficiency acut e [facility] Work Phone: Evaluation note* Diagnosis S/P gastrointestinal surgery, follow-up exam- Primary Follow-up examination, following other surgery S/P laparoscopic cholecystectomy Other postprocedural status documented in this encounter [facility]* Diagnosis Generalized abdominal pain- Primary Abdominal pain, generalized History of acute pancreatitis Personal history of other diseases of digestive system documented in this encounter [facility]* Diagnosis Upper abdominal pain- Primary Abdominal pain, other specified site Dyspepsia and disorder of function of stomach Dyspepsia and other specified disorders of function of stomach Dyspepsia Dyspepsia and other specified disorders of function of stomach documented in this encounter [facility]* Diagnosis Upper abdominal pain Abdominal pain, other specified site Dyspepsia and disorder of function of stomach Dyspepsia and other specified disorders of function of stomach Dyspepsia Dyspepsia and other specified disorders of function of stomach documented in this encounter [facility] note* Diagnosis Upper abdominal pain Abdominal pain, other specified site Dyspepsia and disorder of function of stomach Dyspepsia and other specified disorders of function of stomach documented in this encounter [facility]* Diagnosis Epigastric pain- Primary Abdominal pain, epigastric documented in this encounter [facility]* Diagnosis Onset Date Resolution Status LOCO (generalized anxiety disorder) acute [facility] Work Phone: evaluation note* Diagnosis APPOINTMENT CANCELLED- Primary documented in this encounter [facility] note* Diagnosis Chronic recurrent pancreatitis (HCC) Chronic pancreatitis documented in this encounter [facility]* Diagnosis Diarrhea, unspecified type- Primary [facility] Diagnosis Right sided abdominal pain- Primary Abdominal pain, unspecified site Neuralgia and neuritis Neuralgia, neuritis, and radiculitis, unspecified Celiac artery compression syndrome (HCC) Celiac artery compression syndrome documented in this encounter [facility]* Diagnosis Right sided abdominal pain- Primary Abdominal pain, unspecified site Celiac artery compression syndrome (HCC) Celiac artery compression syndrome Neuralgia and neuritis Neuralgia, neuritis, and radiculitis, unspecified Right sided abdominal pain Abdominal pain, unspecified site Celiac artery compression syndrome (HCC) Celiac artery compression syndrome Neuralgia and neuritis Neuralgia, neuritis, and radiculitis, unspecified documented [facility] this encounter [facility]* Diagnosis Neoplasm of unspecified behavior of bone, soft tissue, and skin- Primary [facility]* Diagnosis Median arcuate ligament syndrome (CMS-HCC)- Primary Celiac artery compression syndrome documented in this encounter [facility] Work Phone: Evaluation note* Diagnosis Epigastric pain- Primary Abdominal pain, epigastric Median arcuate ligament syndrome (CMS-HCC) Celiac artery compression syndrome Difficulty breathing Other dyspnea and respiratory abnormality documented in this encounter [facility] Work Phone: Evaluation note* Diagnosis Follow-up visit after miscarriage documented in this encounter [facility]* Diagnosis Median arcuate ligament syndrome (CMS-HCC) Celiac artery compression syndrome documented in this encounter [facility] Work Phone: History general Narrative - Reported* Type Description Date Medical History Esophageal reflux Medical History anxiety Surgical History wisdom teeth extract Hospitalization History pancreatitis [facility] Other Hisnjxr general Narrative - Reported* Type Description Date Medical History Esophageal reflux Medical History ANXIETY Medical History PANCREATITIS Medical History C DIFF Medical History COLON INFLAMMATION Medical History 2 FECAL TRANSPLANTS Medical History ENDOMETRIOSIS Surgical History wisdom teeth extract Surgical History FMT 07/2022 Surgical History LAPROSOCOPY FOR ENDOMETRIOSIS Hospitalization History pancreatitis [facility] Other Reason for referral (narrative)* Diagnostic Procedure Only (Routine) - Closed Specialty Diagnoses / Procedures Referred By Contac t Referred To Contact CT IMAGING Diagnoses Carotid artery aneurysm (HCC) History of acute pancreatitis Procedures CTA NECK W IVCON CTA NECK, W/WO C, W/3D Donya, Rickie, DO [address] [place] [address] [facility] Referral ID Status Reason Start Date Expiration Date V isits Requested Visits Authorized [id number] Closed Auto-Generate d Referral 11/18/2020 05/17/2021 1 1 * Diagnostic Procedure Only (Routine) - Closed Specialty Diagnoses / Procedures [facility] To Contact CT [facility] Diagnoses Family history of ischemic heart disease and other diseases of the circulatory system History of acute pancreatitis Procedures CTA HEAD WO/W IVCON CTA HEAD WWO C, W/3D Rickie Naqvi DO [address] [place] [id number] [facility] Referral ID Status Reason Start Date Expiration Date V isits Requested Visits Authorized [id number] Closed Auto-Generate d Referral 11/18/2020 12/18/2021 1 1 [facility] for referral (narrative)* Outpatient Procedure (Routine) - Closed Specialty Diagnoses / Procedures [facility] To [facility] Diagnoses Chronic recurrent pancreatitis (HCC) Procedures EGD - THERAPEUTIC, EUS, OR TUBE INTERVENTIONS EDG US EXAM SURGICAL ALTER STOM DUODENUM/[place] [address] [place] [address] [facility] [place] [address] [place] [id number] Referral ID Status Reason Start Date Expiration Date V isits Requested Visits Authorized [id number] Closed Auto-Generate d Referral 07/13/2023 07/13/2024 1 1 [facility] for referral (narrative)* Outpatient Procedure (Routine) - Authorized Specialty Diagnoses / Procedures [facility] Diagnoses Other supraventricular tachycardia (HCC) Palpitations Procedures ECHO ECHO TTHRC R-T 2D W/WOM-MODE COMPL SPEC&[place] [address] [place] [address] [facility] [place] [address] [place] [address] Referral ID Status Reason Start Date Expiration Date Visits Requested Visits Authorized [id number] Authorized Auto-Generat ed Referral 10/22/2023 10/21/2024 1 1 [facility] for referral (narrative)* Diagnostic Procedure Only (Routine) - Authorized Specialty Diagnoses / Procedures Referred By Contac t Referred To Contact [facility] Diagnoses Upper abdominal pain Dyspepsia and disorder of function of stomach Dyspepsia Procedures NM GASTRIC EMPTYING SOLID GASTRIC EMPTYING STUDY Dara Butler Jr., DO [address] [place] [address] [facility] [address] [place] [address] Referral ID Status Reason Start Date Expiration Date Visits Requested Visits Authorized [id number] Authorized Auto-Generat ed Referral 12/28/2023 01/26/2025 1 1 * Diagnostic Procedure Only (Routine) - Pending Review Specialty Diagnoses / Procedures Referred By Contac t Referred To Contact XR IMAGING Diagnoses Upper abdominal pain Dyspepsia and disorder of function of stomach Procedures XR UPPER GI SINGLE CONTRAST RADIOLOGIC EXAM UPR GI TRC SINGLE CONTRAST STUDY Dara Butler Jr., DO [address] [place] [address] [place] [address] Referral ID Status Reason Start Date Expiration Date Visits Requested Visits Authorized [id number] Pending Review Auto-Generat ed Referral 12/28/2023 01/26/2025 1 1 [facility] for referral (narrative)* Diagnostic Procedure Only (Routine) - Closed Specialty Diagnoses / Procedures [facility] To Contact MOLECULAR & FUNCTIONAL IMAGING Diagnoses Upper abdominal pain Dyspepsia and disorder of function of stomach Dyspepsia Procedures NM GASTRIC EMPTYING SOLID GASTRIC EMPTYING STUDY Dara Butler Jr., DO [address] [place] [address] [facility] [address] [place] [address] Referral ID Status Reason Start Date Expiration Date V isits Requested Visits Authorized [id number] Closed Auto-Generate d Referral 12/28/2023 01/26/2025 1 1 [facility] for referral (narrative)* Diagnostic Procedure Only (Routine) - Closed Specialty Diagnoses / Procedures [facility] Referred To Contact XR IMAGING Diagnoses Upper abdominal pain Dyspepsia and disorder of function of stomach Procedures XR UPPER GI SINGLE CONTRAST RADIOLOGIC EXAM UPR GI TRC SINGLE CONTRAST STUDY Dara Butler Jr., DO [address] [place] [address] [place] [address] Referral ID Status Reason Start Date Expiration Date V isits Requested Visits Authorized [id number] Closed Auto-Generate d Referral 02/11/2024 07/22/2024 1 1 [facility] for referral (narrative)* Consultation (Routine) - Authorized Specialty Diagnoses / Procedures [facility] Referred To Contact Pain Medicine Diagnoses Median arcuate ligament syndrome (CMS-[place] [address] [address] Zenon Pretty MD [address] [facility] [address] Referral ID Status Reason Start Date Expiration Date Visits Requested Visits Authorized [id number] Authorized Specialty Services Required 02/05/2024 02/04/2025 1 1 * Consultation (Routine) - Authorized Specialty Diagnoses / Procedures Referred By Contac t Referred To Contact General Surgery Diagnoses Median arcuate ligament syndrome ([place]) [place] [address] [place] [address] [address] [address] Whitney Ambriz MD MPH [address] [facility], [facility] [address] [place] [address] Referral ID Status Reason Start Date Expiration Date Visits Requested Visits Authorized [id number] Authorized Specialty Services Required 02/05/2024 02/04/2025 1 1 [facility] Work Phone: Reason for visit Narrative* Diagnostic Procedure Only (Routine) - Closed Specialty Diagnoses / Procedures Referred By Contac t Referred To Contact CT IMAGING Diagnoses Carotid artery aneurysm (HCC) History of acute pancreatitis Procedures CTA NECK W IVCON CTA NECK, W/WO C, W/3D Rickie Naqvi DO [address] [place] [address] [place] [address] Referral ID Status Reason Start Date Expiration Date V isits Requested Visits Authorized [id number] Closed Auto-Generate d Referral 11/18/2020 05/17/2021 1 1 [facility] for visit Narrative* Outpatient Procedure (Routine) - Closed Specialty Diagnoses / Procedures Referred By Contac t Referred To Contact [facility] Diagnoses Chronic recurrent pancreatitis (HCC) Procedures EGD - THERAPEUTIC, EUS, OR TUBE INTERVENTIONS EDG US EXAM SURGICAL ALTER STOM DUODENUM/[place] [address] [place] [address] [facility] [address] [place] [address] Referral ID Status Reason Start Date Expiration Date V isits Requested Visits Authorized [id number] Closed Auto-Generate d Referral 07/13/2023 07/13/2024 1 1 [facility] for visit Narrative* Diagnostic Procedure Only (Routine) - Closed Specialty Diagnoses / Procedures Referred By Contac t Referred To Contact MOLECULAR & FUNCTIONAL IMAGING Diagnoses Upper abdominal pain Dyspepsia and disorder of function of stomach Dyspepsia Procedures NM GASTRIC EMPTYING SOLID GASTRIC EMPTYING STUDY Dara Butler Jr., DO [address] [place] [address] Molecular [facility] Functional Imaging [address] [place] [address] Referral ID Status Reason Start Date Expiration Date V isits Requested Visits Authorized [id number] Closed Auto-Generate d Referral 12/28/2023 01/26/2025 1 1 [facility] for visit Narrative* Diagnostic Procedure Only (Routine) - Closed Specialty Diagnoses / Procedures Referred By Contac t Referred To Contact XR IMAGING Diagnoses Upper abdominal pain Dyspepsia and disorder of function of stomach Procedures XR UPPER GI SINGLE CONTRAST RADIOLOGIC EXAM UPR GI TRC SINGLE CONTRAST STUDY Dara Butler Jr., DO [address] [place] [address] [place] [address] Referral ID Status Reason Start Date Expiration Date V isits Requested Visits Authorized [id number] Closed Auto-Generate d Referral 02/11/2024 07/22/2024 1 1 [facility] for visit Narrative* Consultation (Routine) - Authorized Specialty Diagnoses / Procedures Referred By Contac t Referred To Contact General Surgery Diagnoses Median arcuate ligament syndrome ([place] [address] [address] Whitney Ambriz MD MPH [address] [facility], [place] [address] [place] [address] Referral ID Status Reason Start Date Expiration Date Visits Requested Visits Authorized [id number] Authorized Specialty Services Required 02/05/2024 02/04/2025 1 1 [facility] Work Phone: Summary Purpose Family History Relationship Condition Age [...] Referral Specialty Diagnoses / Procedures Referred By Contact Referred To Contact Gastroenterology Diagnoses Median arcuate ligament syndrome (CMS-HCC) Procedures Esophagogastroduodenoscopy (EGD) [place] ESOPHAGOGASTRODUODENOSCOPY TRANSORAL DIAGNOSTIC [place] EGD TRANSORAL BIOPSY SINGLE/MULTIPLE Whitney Ambriz MD MPH [address] [place] [place] [address] Referral ID Status Reason Start Date Expiration Date V isits Requested Visits Authorized [id number] Authorized 03/06/2024 03/06/2025 1 1 Specialty Diagnoses / Procedures Referred By Contac t Referred To Contact CT IMAGING Diagnoses Generalized abdominal pain RUQ pain Chronic recurrent pancreatitis (HCC) Diarrhea, unspecified type Procedures CTA ABD/PEL W IVCON CT ANGIO ABD&PLVIS CNTRST MTRL W/[place] [address] [place] [address] [place] [address] Referral ID Status Reason Start Date Expiration Date Visits Requested Visits Authorized [id number] Authorized Auto-Generat ed Referral 07/12/2024 1 1 Specialty Diagnoses / Procedures Referred By Contac t Referred To Contact MR IMAGING Diagnoses Chronic recurrent pancreatitis (HCC) Procedures MRI ABDOMEN WO/W IVCON MRI ABDOMEN W/O & W/CONTRAST MATERIAL Dara Butler Jr., DO [address] [place] [address] [place] [address] Referral ID Status Reason Start Date Expiration Date Visits Requested Visits Authorized [id number] Authorized Auto-Generat ed Referral 03/16/2023 04/14/2024 1 1 Specialty Diagnoses / Procedures Referred By Contac t Referred To Contact Gastroenterology Diagnoses Generalized abdominal pain Procedures CONSULT TO GASTROENTEROLOGY OFFICE/OUTPATIENT [facility] 60-74 MINUTES Meredith Gee MD [address] [place] [address] Referral ID Status Reason Start Date Expiration Date Visits Requested Visits Authorized [id number] Authorized PCP Requested Referral 12/23/2022 12/23/2023 1 1 Specialty Diagnoses / Procedures Referred By Contac t Referred To Contact Diagnoses Generalized abdominal pain Procedures CONSULT TO MEDICAL GENETICS - GENERAL OFFICE/OUTPATIENT [facility] 60-74 MINUTES MEDICAL GENETICS COUNSELING EACH 30 MINUTES Meredith Gee MD [address] [place] [address] [employer] [facility] [address] [place] [address] Referral ID Status Reason Start Date Expiration Date Visits Requested Visits Authorized [id number] Pending Review PCP Requested Referral Auto-Generate d Referral 12/23/2022 12/23/2023 1 1 Reason Please schedule cons ult to evaluate and treat at [facility] (in [place]) for recurrent c.diff infection. (for possible fecal transplant) Diagnosis 1 C. difficile diarrhe a (A04.72) Referral Organization [facility] Gastroenterolo gy Referring Provider First Name Jaya [...] section and content) DATE CREATED AUTHOR 09/15/2021 [facility] DATE CREATED AUTHOR AUTHOR'S ORGANIZ ATION 02/16/2022 [facility] DATE CREATED AUTHOR AUTHOR'S ORGANIZ ATION 03/18/2022 [facility] DATE CREATED AUTHOR AUTHOR'S ORGANIZ ATION 11/03/2022 [facility] DATE CREATED AUTHOR AUTHOR'S ORGANIZ ATION 12/04/2022 [facility] DATE CREATED AUTHOR AUTHOR'S ORGANIZ ATION 04/26/2023 [facility] DATE CREATED AUTHOR AUTHOR'S ORGANIZ ATION 12/10/2023 [facility] DATE CREATED AUTHOR AUTHOR'S ORGANIZ ATION 01/03/2024 [facility] DATE CREATED AUTHOR AUTHOR'S ORGANIZ ATION 02/13/2024 [facility] DATE CREATED AUTHOR AUTHOR'S ORGANIZ ATION 07/04/[address] [facility] EPIC DATE CREATED AUTHOR AUTHOR'S ORGANIZ ATION 07/09/[address] [facility] REASON FOR VISIT (unrecogniz ed section and content) Reason Comments New Patient Specialty Diagnoses / Procedures Referred By Contac t Referred To Contact Gastroenterology Diagnoses C. difficile diarrhea Jaya Parikh MD [address] [place] [address] Referral ID Status Reason Start Date Expiration Date V isits Requested Visits Authorized [id number] Pending Review 10/07/2021 11/01/2022 1 1 Reason Comments Abdominal Pain Specialty Diagnoses / Procedures Referred By Contac t Referred To Contact Gastroenterology Diagnoses Generalized abdominal pain Procedures CONSULT TO GASTROENTEROLOGY OFFICE/OUTPATIENT NEW HIGH MDM 60-74 MINUTES Meredith Gee MD [address] [facility] [place] [address] Referral ID Status Reason Start Date Expiration Date V isits Requested Visits Authorized [id number] Closed PCP Requested Referral 12/23/2022 12/23/2023 1 [...] HIGH [place] 60 [place] [address] [address] [place] [address] Referral ID Status Reason Start Date Expiration Date V isits Requested Visits Authorized [id number] Closed PCP Requested Referral 10/19/2023 10/18/2024 1 [...] MRI ABDOMEN W/O & W/CONTRAST MATERIAL Dara Btuler Jr., DO [address] [place] [address] [place] [address] Referral ID Status Reason Start Date Expiration Date V isits Requested Visits Authorized [id number] Closed Auto-Generate d Referral 03/16/2023 04/14/2024 1 1 Reason Comments Appointment No need for OV with Dr. Menon Reason Comments Schedule Injection Reason Comments Appointment Reason Comments Suspicious Skin Lesion Reason Comments New Patient Visit C/o of stomach pain, nausea and diarrhea since age 15. Is able to eat a full meal. Reason Comments follow up miscarriage Specialty Diagnoses / Procedures Referred By Contact Referred To Contact Gastroenterology Diagnoses Median arcuate ligament syndrome (CMS-HCC) Procedures Esophagogastroduodenoscopy (EGD) [place] ESOPHAGOGASTRODUODENOSCOPY TRANSORAL DIAGNOSTIC [place] EGD TRANSORAL BIOPSY SINGLE/MULTIPLE Whitney Ambriz MD MPH [address] [place] [address] Referral ID Status Reason Start Date Expiration Date V isits Requested Visits Authorized [id number] Authorized 03/06/2024 03/06/2025 1 1 Source Comments (unrecognize d section and content) In the event this informatio n is protected by the Federal Confidentiality of Alcohol and Drug Abuse Patient Records regulations: The Federal rules restrict any use of the information to criminally investigate or prosecute any alcohol or drug abuse patient.[facility] the event this information is protected by the Federal Confidentiality of Alcohol and Drug Abuse Patient Records regulations: The Federal rules restrict any use of the information to criminally investigate or prosecute any alcohol or drug abuse patient.[facility] the event this information is protected by the Federal Confidentiality of Alcohol and Drug Abuse Patient Records regulations: The Federal rules restrict any use of the information to criminally investigate or prosecute any alcohol or drug abuse patient.[facility] the event this information is protected by the Federal Confidentiality of Alcohol and Drug Abuse Patient Records regulations: The Federal rules restrict any use of the information to criminally investigate or prosecute any alcohol or drug abuse patient.[facility] the event this information is protected by the Federal Confidentiality of Alcohol and Drug Abuse Patient Records regulations: The Federal rules restrict any use of the information to criminally investigate or prosecute any alcohol or drug abuse patient.[facility] the event this information is protected by the Federal Confidentiality of Alcohol and Drug Abuse Patient Records regulations: The Federal rules restrict any use of the information to criminally investigate or prosecute any alcohol or drug abuse patient.[facility] the event this information is protected by the Federal Confidentiality of Alcohol and Drug Abuse Patient Records regulations: The Federal rules restrict any use of the information to criminally investigate or prosecute any alcohol or drug abuse patient.[facility] the event this information is protected by the Federal Confidentiality of Alcohol and Drug Abuse Patient Records regulations: The Federal rules restrict any use of the information to criminally investigate or prosecute any alcohol or drug abuse patient.[facility] the event this information is protected by the Federal Confidentiality of Alcohol and Drug Abuse Patient Records regulations: The Federal rules restrict any use of the information to criminally investigate or prosecute any alcohol or drug abuse patient.[facility] the event this information is protected by the Federal Confidentiality of Alcohol and Drug Abuse Patient Records regulations: The Federal rules restrict any use of the information to criminally investigate or prosecute any alcohol or drug abuse patient.[facility] the event this information is protected by the Federal Confidentiality of Alcohol and Drug Abuse Patient Records regulations: The Federal rules restrict any use of the information to criminally investigate or prosecute any alcohol or drug abuse patient.[facility] Hospital[facility] the event this information is protected by the Federal Confidentiality of Alcohol and Drug Abuse Patient Records regulations: The Federal rules restrict any use of the information to criminally investigate or prosecute any alcohol or drug abuse patient.[facility] HospitalIn the event this information is protected by the Federal Confidentiality of Alcohol and Drug Abuse Patient Records regulations: The Federal rules restrict any use of the information to criminally investigate or prosecute any alcohol or drug abuse patient.[facility] the event this information is protected by the Federal Confidentiality of Alcohol and Drug Abuse Patient Records regulations: The Federal rules restrict any use of the information to criminally investigate or prosecute any alcohol or drug abuse patient.[facility]In the event this information is protected by the Federal Confidentiality of Alcohol and Drug Abuse Patient Records regulations: The Federal rules restrict any use of the information to criminally investigate or prosecute any alcohol or drug abuse patient.[facility] HospitalIn the event this information is protected by the Federal Confidentiality of Alcohol and Drug Abuse Patient Records regulations: The Federal rules restrict any use of the information to criminally investigate or prosecute any alcohol or drug abuse patient.[facility] HospitalIn the event this information is protected by the Federal Confidentiality of Alcohol and Drug Abuse Patient Records regulations: The Federal rules restrict any use of the information to criminally investigate or prosecute any alcohol or drug abuse patient.[facility] HospitalIn the event this information is protected by the Federal Confidentiality of Alcohol and Drug Abuse Patient Records regulations: The Federal rules restrict any use of the information to criminally investigate or prosecute any alcohol or drug abuse patient.[facility]In the event this information is protected by the Federal Confidentiality of Alcohol and Drug Abuse Patient Records regulations: The Federal rules restrict any use of the information to criminally investigate or prosecute any alcohol or drug abuse patient.[facility] HospitalIn the event this information is protected by the Federal Confidentiality of Alcohol and Drug Abuse Patient Records regulations: The Federal rules restrict any use of the information to criminally investigate or prosecute any alcohol or drug abuse patient.[facility] HospitalIn the event this information is protected by the Federal Confidentiality of Alcohol and Drug Abuse Patient Records regulations: The Federal rules restrict any use of the information to criminally investigate or prosecute any alcohol or drug abuse patient.[facility]In the event this information is protected by the Federal Confidentiality of Alcohol and Drug Abuse Patient Records regulations: The Federal rules restrict any use of the information to criminally investigate or prosecute any alcohol or drug abuse patient.[facility]In the event this information is protected by the Federal Confidentiality of Alcohol and Drug Abuse Patient Records regulations: The Federal rules restrict any use of the information to criminally investigate or prosecute any alcohol or drug abuse patient.[facility]In the event this information is protected by the Federal Confidentiality of Alcohol and Drug Abuse Patient Records regulations: The Federal rules restrict any use of the information to criminally investigate or prosecute any alcohol or drug abuse patient.[facility]In the event this information is protected by the Federal Confidentiality of Alcohol and Drug Abuse Patient Records regulations: The Federal rules restrict any use of the information to criminally investigate or prosecute any alcohol or drug abuse patient.[facility]In the event this information is protected by the Federal Confidentiality of Alcohol and Drug Abuse Patient Records regulations: The Federal rules restrict any use of the information to criminally investigate or prosecute any alcohol or drug abuse patient.[facility]In the event this information is protected by the Federal Confidentiality of Alcohol and Drug Abuse Patient Records regulations: The Federal rules restrict any use of the information to criminally investigate or prosecute any alcohol or drug abuse patient.[facility] HospitalIn the event this information is protected by the Federal Confidentiality of Alcohol and Drug Abuse Patient Records regulations: The Federal rules restrict any use of the information to criminally investigate or prosecute any alcohol or drug abuse patient.[facility] HospitalIn the event this information is protected by the Federal Confidentiality of Alcohol and Drug Abuse Patient Records regulations: The Federal rules restrict any use of the information to criminally investigate or prosecute any alcohol or drug abuse patient.[facility] HospitalIn the event this information is protected by the Federal Confidentiality of Alcohol and Drug Abuse Patient Records regulations: The Federal rules restrict any use of the information to criminally investigate or prosecute any alcohol or drug abuse patient.[facility] HospitalIn the event this information is protected by the Federal Confidentiality of Alcohol and Drug Abuse Patient Records regulations: The Federal rules restrict any use of the information to criminally investigate or prosecute any alcohol or drug abuse patient.[facility] HospitalIn the event this information is protected by the Federal Confidentiality of Alcohol and Drug Abuse Patient Records regulations: The Federal rules restrict any use of the information to criminally investigate or prosecute any alcohol or drug abuse patient.[facility] HospitalIn the event this information is protected by the Federal Confidentiality of Alcohol and Drug Abuse Patient Records regulations: The Federal rules restrict any use of the information to criminally investigate or prosecute any alcohol or drug abuse patient.[facility] HospitalIn the event this information is protected by the Federal Confidentiality of Alcohol and Drug Abuse Patient Records regulations: The Federal rules restrict any use of the information to criminally investigate or prosecute any alcohol or drug abuse patient.[facility] HospitalIn the event this information is protected by the Federal Confidentiality of Alcohol and Drug Abuse Patient Records regulations: The Federal rules restrict any use of the information to criminally investigate or prosecute any alcohol or drug abuse patient.[facility] HospitalIn the event this information is protected by the Federal Confidentiality of Alcohol and Drug Abuse Patient Records regulations: The Federal rules restrict any use of the information to criminally investigate or prosecute any alcohol or drug abuse patient.[facility] HospitalIn the event this information is protected by the Federal Confidentiality of Alcohol and Drug Abuse Patient Records regulations: The Federal rules restrict any use of the information to criminally investigate or prosecute any alcohol or drug abuse patient.[facility] HospitalIn the event this information is protected by the Federal Confidentiality of Alcohol and Drug Abuse Patient Records regulations: The Federal rules restrict any use of the information to criminally investigate or prosecute any alcohol or drug abuse patient.[facility] HospitalIn the event this information is protected by the Federal Confidentiality of Alcohol and Drug Abuse Patient Records regulations: The Federal rules restrict any use of the information to criminally investigate or prosecute any alcohol or drug abuse patient.[facility] HospitalIn the event this information is protected by the Federal Confidentiality of Alcohol and Drug Abuse Patient Records regulations: The Federal rules restrict any use of the information to criminally investigate or prosecute any alcohol or drug abuse patient.[facility] Hospital[facility] the event this information is protected by the Federal Confidentiality of Alcohol and Drug Abuse Patient Records regulations: The Federal rules restrict any use of the information to criminally investigate or prosecute any alcohol or drug abuse patient.[facility] the event this information is protected by the Federal Confidentiality of Alcohol and Drug Abuse Patient Records regulations: The Federal rules restrict any use of the information to criminally investigate or prosecute any alcohol or drug abuse patient.[facility] Care Teams (unrecognized sec tion and [...] November 29, 2023 End: November 29, 2023 Flame Channeler Relationship Specialty Start Date End Date Colby Augustin MD PCP - General Family Medicine 11/10/20 Flame Channeler Relationship Specialty Start Date End Date Colby Augustin MD PCP - General Family Medicine 11/10/20 Flame Channeler Relationship Specialty Start Date End Date Colby Augustin MD PCP - General Family Medicine 11/10/20 Flame Channeler Relationship Specialty Start Date End Date Colby Augustin MD PCP - General Family Medicine 11/10/20 Flame Channeler Relationship Specialty Start Date End Date Colby Augustin MD PCP - General Family Medicine 11/10/20 Flame Channeler Relationship Specialty Start Date End Date Colby Augustin MD PCP - General Family Medicine 11/10/20 Flame Channeler Relationship Specialty Start Date End Date Colby Augustin MD PCP - General Family Medicine 11/10/20 Flame Channeler Relationship Specialty Start Date End Date Colby Augustin MD PCP - General Family Medicine 11/10/20 Team Status: Inactive Member Role Status Dates Analia Holliday DNP Primary Care Provider, Attending Provider Active Flame Channeler Relationship Specialty Start Date End Date Analia Holliday SITE PLANNER [address] [place] [address] PCP - General Family Medicine 06/06/23 Flame Channeler Relationship Specialty Start Date End Date Analia Holliday CNP [address] [place] [phone] PCP - General Family Medicine 06/06/23 Flame Channeler Relationship Specialty Start Date End Date Analia Holliday, DIOR [address] [place] [phone] PCP - General Family Medicine 06/06/23 Flame Channeler Relationship Specialty Start Date End Date Analia Holliday, SITE PLANNER [address] [place] [phone] PCP - General Family Medicine 06/06/23 Flame Channeler Relationship Specialty Start Date End Date Analia Holliday, SITE PLANNER [address] [place] [phone] PCP - General Family Medicine 06/06/23 Flame Channeler Relationship Specialty Start Date End Date Analia Holliday, SITE PLANNER [address] [place] [phone] PCP - General Family Medicine 06/06/23 Flame Channeler Relationship Specialty Start Date End Date Analia Holliday, SITE PLANNER [address] [place] [phone] PCP - General Family Medicine 06/06/23 Flame Channeler Relationship Specialty Start Date End Date Analia Holliday, DIOR [address] [place] [phone] PCP - General Family Medicine 06/06/23 Flame Channeler Relationship Specialty Start Date End Date Analia Holliday, DIOR [address] [place] [phone] PCP - General Family Medicine 06/06/23 Flame Channeler Relationship Specialty Start Date End Date Analia Holliday, DIOR [address] [place] [phone] PCP - General Family Medicine 06/06/23 Flame Channeler Relationship Specialty Start Date End Date Analia Holliday, DIOR [address] [place] [phone] PCP - General Family Medicine 06/06/23 Flame Channeler Relationship Specialty Start Date End Date Analia Holliday, DIOR [address] [place] [phone] PCP - General Family Medicine 06/06/23 Flame Channeler Relationship Specialty Start Date End Date Analia Holliday, DIOR [address] [place] [phone] PCP - General Family Medicine 06/06/23 Team Status: Active Member Role Status Dates Analia Holliday DNP Primary Care Provider Active Start: December 27, 2023 Dara Butler DO Attending Provider Active Sta rt: December 27, 2023 Team Status: Inactive Member Role Status Dates Ana Bolton DO Attending Provider Active Start: January 01, 2024 End: January 01, 2024 Flame Channeler Relationship Specialty Start Date End Date Analia Holliday CNP [address] [place] [phone] PCP - General Family Medicine 06/06/23 Team Status: Active Member Role Status Dates Analia Dennis APRN STUDENT ADVISOR-C Primary Care Provider Active Team Status: Inactive Member Role Status Dates Analia Dennis APRN STUDENT ADVISOR-C Primary Care Provider, Attending Provider Active Start: March 19, 2024 End: March 19, 2024 Flame Channeler Relationship Specialty Start Date End Date Analia Holliday CNP [address] [place] [phone] PCP - General Family Medicine 06/06/23 Flame Channeler Relationship Specialty Start Date End Date Colby Augustin MD PCP - General Family Medicine 11/10/20 06/05/23 Flame Channeler Relationship Specialty Start Date End Date Analia Holliday, SITE PLANNER [address] [place] [phone] PCP - General Family Medicine 06/06/23 Flame Channeler Relationship Specialty Start Date End Date Analia Holliday, SITE PLANNER [address] [place] [phone] PCP - General Family Medicine 06/06/23 Flame Channeler Relationship Specialty Start Date End Date Analia Holldiay, SITE PLANNER [address] [place] [phone] PCP - General Family Medicine 06/06/23 Flame Channeler Relationship Specialty Start Date End Date Analia Holliday, SITE PLANNER [address] [place] [phone] PCP - General Family Medicine 06/06/23 Flame Channeler Relationship Specialty Start Date End Date Keshia Restrepo MD [address] [place] [phone] PCP - General Family Medicine 06/11/24 Flame Channeler Relationship Specialty Start Date End Date Kyree Noguera MD [address] [place] [address] (Fax) PCP - General Family Medicine 12/13/22 Kyree Noguera MD [address] [place] [address] (Fax) PCP - [facility] 11/20/22 Flame Channeler Relationship Specialty Start Date End Date Kyree Noguera MD [address] [place] [address] (Fax) PCP - General Family Medicine 12/13/22 Kyree Noguera MD [address] [place] [address] (Fax) PCP - [facility] 11/20/22 Flame Channeler Relationship Specialty Start Date End Date Kyree Noguera MD [address] [place] [address] (Fax) PCP - General Family Medicine 12/13/22 Kyree Noguera MD [address] [place] [address] (Fax) PCP - [facility] 11/20/22 Flame Channeler Relationship Specialty Start Date End Date Keshia Restrepo MD [address] [place] [phone] PCP - General Family Medicine 06/11/24 Flame Channeler Relationship Specialty Start Date End Date Kyree Noguera MD [address] [place] [address] (Fax) PCP - General Family Medicine 12/13/22 Kyree Noguera MD [address] [place] [address] (Fax) PCP - [facility] 11/20/22 Flame Channeler Relationship Specialty Start Date End Date Kyree Noguera MD [address] [place] [address] (Fax) PCP - General Family Medicine 12/13/22 Kyree Noguera MD [address] [place] [phone] PCP - [facility] 11/20/22 Goals (unrecognized section and content) Goals may [...] BE BASED ON THE PRIMARY CLINICAL RECORDS. [employer] provides no warranty or guarantee of the accuracy or completeness of information in this document.
[2024-07-11 09:46] LABS: Basophils Absolute Auto 0.1 10^3/uL (0.0-0.1); Basophils Percent Auto 1.6 % (0.2-2.0); Eosinophils Absolute Auto 0.3 10^3/uL (0.0-0.7); Eosinophils Percent Auto 5.7 % (0.9-7.0); Hematocrit 43.8 % (36.0-48.0); Hemoglobin 15.1 g/dL (12.0-16.0); Immature Granulocytes Abs Auto 0.01 10^3/uL (0.00-0.03); Immature Granulocytes Pct Auto 0.2 % (0.0-0.5); Lymphocytes Percent Auto 44.1 % (20.5-60.0); Mean Corpuscular HGB Conc 34.5 g/dL (29.9-35.2); Mean Corpuscular Hemoglobin 32.4 pg (26.7-34.0); Mean Platelet Volume 10.5 fL (9.5-13.5); Monocytes Absolute Auto 0.4 10^3/uL (0.3-0.8); Monocytes Percent Auto 9.7 % (1.7-12.0); Neutrophils Absolute Auto 1.7 10^3/uL (1.4-6.5); Neutrophils Percent Auto 38.7 % (43.0-75.0); Platelet Count 218 10^3/uL (150-450); Red Blood Count 4.66 10^6/uL (4.20-5.40); Red Cell Distribution Width 11.2 % (11.0-15.0); White Blood Count 4.4 10^3/uL (4.0-11.0)
[2024-07-11 09:48] LABS: Bilirubin Urine NEGATIVE (NEGATIVE); Blood Urine NEGATIVE (NEGATIVE); Clarity Urine CLEAR (CLEAR); Color Urine LT. YELLOW (YELLOW); Glucose Urine UA NEGATIVE (NEGATIVE); Ketones Urine TRACE mg/dL (NEGATIVE); Leukocyte Esterase Urine NEGATIVE (NEGATIVE); Nitrite Urine NEGATIVE (NEGATIVE); Protein Urine TRACE mg/dL (NEG/TRACE); Specific Gravity Urine 1.025 (1.005-1.025); Urobilinogen Urine 0.2 EU/dL (0.2-1.0)
[2024-07-11 09:49] LABS: HCG Qualitative Urine* NEGATIVE (NEGATIVE); Internal Control Within Normal Limits
[2024-07-11 09:50] LABS: Urine Microscopic Indicated NO
[2024-07-11 10:04] LABS: Alanine Aminotransferase 16 U/L (14-59); Albumin Globulin Ratio 1.3; Albumin Level 4.4 g/dL (3.4-5.0); Alkaline Phosphatase 52 U/L (46-116); Anion Gap 13.9; Aspartate Amino Transferase 18 U/L (15-37); BUN Creatinine Ratio 11.2; Bilirubin Total 0.9 mg/dL (0.2-1.0); Calcium 9.4 mg/dL (8.5-10.1); Carbon Dioxide 26.9 mmol/L (21.0-32.0); Chloride 103 mmol/L (98-107); Estimated GFR (African America >60 (>=60 mL/min/1.73m^2); Estimated GFR (Non-African Ame >60 (>=60 mL/min/1.73m^2); Globulin 3.5 g/dL; Glucose 97 mg/dL (74-106); Potassium 3.8 mmol/L (3.5-5.1); Sodium 140 mmol/L (136-145); Total Protein 7.9 g/dL (6.4-8.2)
[2024-07-11] MEDS: ONDANSETRON 4 MG RAPDIS TABLET SL (12:43)
--- NOTE | 2024-07-11 13:06 | CT_ITS ---
[address] [address] Patient Name: CHIOMA ALONZO MRN: [id number] date: 2000 Sex: F Assigned Patient Location: ER Current Patient Location: .[facility] Accession/Order Number: [id number] Exam Date: 07/11/2024 13:30 Report Date: 07/11/2024 14:12 At the request of: PURVI RIVERA Procedure: CT abdomen pelvis w con EXAMINATION: CT abdomen pelvis w con HISTORY: diarrhea history of cdiff and colitis COMPARISON: 01/01/2024 TECHNIQUE: CT images were created with IV contrast. Axial, Coronal, and Sagittal images. Dose reduction techniques were achieved by using automated exposure control and/or adjustment of mA and/or kV according to patient size and/or use of iterative reconstruction technique. FINDINGS: LUNG BASES: No visible pulmonary or pleural disease. LIVER: No enlargement, atrophy, abnormal density, or significant focal lesion. BILIARY: Surgical clips from cholecystectomy PANCREAS: No lesion, fluid collection, ductal dilatation, or atrophy. SPLEEN: No enlargement or focal lesion. ADRENALS: No mass or enlargement. KIDNEYS: No mass, obstruction, or calcification. BOWEL/MESENTERY: No visible mass, obstruction, or bowel wall thickening. AORTA/VASCULAR: No aneurysm or dissection. RETROPERITONEUM: No mass or adenopathy. LYMPH NODES: No adenopathy. URINARY BLADDER: No visible focal wall thickening, lesion, or calculus. PELVIC ORGANS: Dilated endometrial cavity with hypervascularity of the uterus and cervix, correlate with the menstrual cycle. 1.6 cm left adnexal cyst ABDOMINAL WALL: No mass or hernia. BONES: No bony lesion or fracture. OTHER: Negative. CT/CT abdomen pelvis w con IMPRESSION: No acute intraperitoneal abnormality. Electronically authenticated by: DARA HUMPHREY Date: 07/11/2024 14:12
--- NOTE | 2024-07-11 14:40 | ED_ITS ---
Documented by User: Allyssa Chan 07/11/24 14:43 HPI - Abdominal Pain General Chief Complaint: Abdominal Pain Stated Complaint: DIARRHEA Time Seen by Provider: 07/11/24 13:06 Source: patient Mode of arrival: walk-in Limitations: no limitations History of Present Illness HPI narrative: 23-year-old female presents here with a chief complaint of diarrhea. She has had a history of chronic diarrhea but had increased episodes over the last 3 weeks. She has a history of C. difficile. Patient presents here due to abdominal cramping and tenderness. 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 Recent stool culture is negative for acute C. difficile infection. Patient has a scheduled appoint with GI specially coming up but she wanted to be sure she had no other issues going on today. Related Data Home Medications ?Medication ?Instructions ?Recorded ?Confirmed hyoscyamine sulfate 0.375 mg 0.375 mg PO BID 12/27/23 03/24/24 tablet,extended release,12 hr escitalopram oxalate 5 mg tablet 5 mg PO DAILY 03/24/24 03/24/24 (Lexapro) ondansetron HCl 4 mg tablet 4 mg PO DAILY 03/24/24 03/24/24 Previous Rx's ?Medication ?Instructions ?Recorded dicyclomine 10 mg capsule 10 mg PO QID PRN abdominal pain 03/24/24 #12 caps ondansetron 4 mg disintegrating 4 mg PO Q8H PRN nausea and 03/24/24 tablet vomiting 4 days #16 tabs dicyclomine 20 mg tablet 20 mg PO BID #10 tabs 07/11/24 Allergies Allergy/AdvReac Type Severity Reaction Status Date / Time metronidazole (From Flagyl) Allergy Hives Verified 07/11/24 09:20 Review of Systems ROS0 Narrative All Systems are negative except as noted/marked.All systems reviewed and otherwise negative [facility] Medical History (Updated 07/11/24 @ 14:39 by Allyssa Chan) History of IBS ?Z87.19 - Personal history of other diseases of the digestive system (ICD-10) History of endometriosis ?Z87.42 - Personal history of other diseases of the female genital tract (ICD-10) History of Clostridioides difficile colitis ?Z86.19 - Personal history of other infectious and parasitic diseases (ICD- 10) Epigastric pain ?R10.13 - Epigastric pain (ICD-10) Nausea ?R11.0 - Nausea (ICD-10) Acute sinusitis due to respiratory syncytial virus (RSV) ?J01.90 - Acute sinusitis, unspecified (ICD-10) ?B97.4 - Respiratory syncytial virus as the cause of diseases classified elsewhere (ICD-10) Shoulder pain ?M25.519 - Pain in unspecified shoulder (ICD-10) Syncope ?R55 - Syncope and collapse (ICD-10) Paresthesia and pain of extremity ?R20.2 - Paresthesia of skin (ICD-10) ?M79.609 - Pain in unspecified limb (ICD-10) Paresthesia ?R20.2 - Paresthesia of skin (ICD-10) Back pain ?M54.9 - Dorsalgia, unspecified (ICD-10) Insomnia ?G47.00 - Insomnia, unspecified (ICD-10) Depression ?F32.A - Depression, unspecified (ICD-10) Anxiety ?F41.9 - Anxiety disorder, unspecified (ICD-10) COVID-19 ?U07.1 - COVID-19 (ICD-10) Pleurisy ?R09.1 - Pleurisy (ICD-10) IBS (irritable bowel syndrome) ?K58.9 - Irritable bowel syndrome without diarrhea (ICD-10) GERD (gastroesophageal reflux disease) ?K21.9 - Gastro-esophageal reflux disease without esophagitis (ICD-10) Palpitations ?R00.2 - Palpitations (ICD-10) Low vitamin D level ?R79.89 - Other specified abnormal findings of blood chemistry (ICD-10) Fatigue ?R53.83 - Other fatigue (ICD-10) Ovarian cyst ?N83.209 - Unspecified ovarian cyst, unspecified side (ICD-10) Pancreatitis ?K85.90 - Acute pancreatitis without necrosis or infection, unspecified (ICD- 10) Abdominal pain ?R10.9 - Unspecified abdominal pain (ICD-10) Altered bowel function ?R19.8 - Other specified symptoms and signs involving the digestive system and abdomen (ICD-10) Diarrhea ?R19.7 - Diarrhea, unspecified (ICD-10) Abnormal uterine bleeding ?N93.9 - Abnormal uterine and vaginal bleeding, unspecified (ICD-10) Pelvic pain ?R10.2 - Pelvic and perineal pain (ICD-10) Fallopian tube disorder ?N83.9 - Noninflammatory disorder of ovary, fallopian tube and broad ligament, unspecified (ICD-10) Muscle weakness ?M62.81 - Muscle weakness (generalized) (ICD-10) Dehydration ?E86.0 - Dehydration (ICD-10) Clostridium difficile infection ?A49.8 - Other bacterial infections of unspecified site (ICD-10) 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 - Personal history of other medical treatment (ICD-10) Surgical History (Updated 01/08/23 @ 10:26 by Lynette Darden NP) History of removal of skin mole ?Z98.890 - Other specified postprocedural states (ICD-10) ?Z87.2 - Personal history of diseases of the skin and subcutaneous tissue (ICD-10) History of wisdom tooth extraction ?K08.409 - Partial loss of teeth, unspecified cause, unspecified class (ICD- 10) History of esophagogastroduodenoscopy (EGD) ?Z98.890 - Other specified postprocedural states (ICD-10) History of colonoscopy ?Z98.890 - Other specified postprocedural states (ICD-10) Family History (Updated 01/08/23 @ 10:26 by Lynette Darden NP) Other Family history of hypertension Family history of prostate cancer Family history of stroke Social History Within the past year, how often did you have a drink containing alcohol: never Score interpretation: A score less than 3 is consistent with normal alcohol consumption. 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 General: The patient appears well and in no apparent distress. Patient is resting comfortably on cart. Skin: Warm, dry, no pallor noted. There is no rash noted. Head: Normocephalic, atraumatic Eye: Normal conjunctiva, no drainage, EOMI. PERRL Ears, Nose, Mouth, and Throat: oral mucosa is moist. Nares patent. Mouth without vesicles. Ear canals patent. Tm's without Erythema Cardiovascular: Regular Rate and Rhythm Respiratory: Patient is in no distress, no accessory muscle use, lungs are clear to auscultation, no wheezing, rales or rhonchi Back: non-tender, no CVA tenderness bilaterally to percussion. GI: Normal bowel sounds, no tenderness to palpation, no masses appreciated. No rebound, guarding, or rigidity noted. Musculoskeletal: The patient has no evidence of calf tenderness, no pitting edema, symmetrical pulses noted bilaterally Neurological: A&O x4, normal speech Psychiatric: Cooperative Constitutional Vital Signs, click to edit/add: Last Vital Signs Temp 98.3 F 07/11/24 09:20 Pulse 70 07/11/24 14:44 Resp 18 07/11/24 14:44 BP 100/70 07/11/24 14:44 Pulse Ox 99 07/11/24 14:44 O2 Del Method Room Air 07/11/24 14:44 Course Vital Signs Vital signs: Vital Signs Temperature 98.3 F 07/11/24 09:20 Pulse Rate 92 H 07/11/24 09:20 Respiratory Rate 20 07/11/24 09:20 Blood Pressure 112/80 07/11/24 09:20 Pulse Oximetry 100 07/11/24 09:20 Oxygen Delivery Method Room Air 07/11/24 09:20 Temperature 98.3 F 07/11/24 09:20 Pulse Rate 70 07/11/24 14:44 Respiratory Rate 18 07/11/24 14:44 Blood Pressure 100/70 07/11/24 14:44 Pulse Oximetry 99 07/11/24 14:44 Oxygen Delivery Method Room Air 07/11/24 14:44 MDM - Abdominal Pain MDM Narrative Medical decision making narrative: Patient presented here chief complaint of diarrhea. Patient denied the need for IV hydration. Upon arrival to the emergency room IV was established and blood work was drawn. CBC and BMP were within normal limits. Patient does have a history of colitis in the past as well as C. difficile. She is not currently taking any antibiotics or been on antibiotics recently. Recent stool culture was negative for acute toxin. CT scan of abdomen today shows no acute intraperitoneal abnormalities. Patient denied the need for antibiotics and states she will follow-up with her GI as scheduled in July. Discharged home with prescription for Bentyl. Patient agrees with plan of care. Differential Diagnosis Differential diagnosis: Likely abdominal pain, diverticulitis, gastroenteritis and other Medical Records Attestation: I reviewed the patient's medical records. Lab Data Attestation: I reviewed the patient's lab results. Labs: Lab Results 07/11/24 07/11/24 Range/Units 09:35 09:39 WBC 4.4 (4.0-11.0) 10^3/uL RBC 4.66 (4.20-5.40) 10^6/uL Hgb 15.1 (12.0-16.0) g/dL Hct 43.8 (36.0-48.0) % MCV 94.0 (81.0-99.0) fL MCH 32.4 (26.7-34.0) pg MCHC 34.5 (29.9-35.2) g/dL RDW 11.2 (11.0-15.0) % Plt Count 218 (150-450) 10^3/uL MPV 10.5 (9.5-13.5) fL Neut % (Auto) 38.7 L (43.0-75.0) % Lymph % (Auto) 44.1 (20.5-60.0) % Tift % (Auto) 9.7 (1.7-12.0) % Eos % (Auto) 5.7 (0.9-7.0) % Baso % (Auto) 1.6 (0.2-2.0) % Neut # (Auto) 1.7 (1.4-6.5) 10^3/uL Lymph # (Auto) 2.0 (1.2-3.8) 10^3/uL Tift # (Auto) 0.4 (0.3-0.8) 10^3/uL Eos # (Auto) 0.3 (0.0-0.7) 10^3/uL Baso # (Auto) 0.1 (0.0-0.1) 10^3/uL Abs Immat Gran (auto) 0.01 (0.00-0.03) 10^3/uL Imm/Tot Granulo (auto) 0.2 (0.0-0.5) % Sodium 140 (136-145) mmol/L Potassium 3.8 (3.5-5.1) mmol/L Chloride 103 (98-107) mmol/L Carbon Dioxide 26.9 (21.0-32.0) mmol/L Anion Gap 13.9 BUN 9.0 (7.0-18.0) mg/dL Creatinine 0.80 (0.55-1.02) mg/dL Est GFR ( Amer) >60 (>=60 mL/min/1.73m^2) Est GFR (Non-Af Amer) >60 (>=60 mL/min/1.73m^2) BUN/Creatinine Ratio 11.2 Glucose 97 (74-106) mg/dL Calcium 9.4 (8.5-10.1) mg/dL Total Bilirubin 0.9 (0.2-1.0) mg/dL AST 18 (15-37) U/L ALT 16 (14-59) U/L Alkaline Phosphatase 52 (46-116) U/L Total Protein 7.9 (6.4-8.2) g/dL Albumin 4.4 (3.4-5.0) g/dL Globulin 3.5 g/dL Albumin/Globulin Ratio 1.3 Lipase 25.0 (16.0-77.0) U/L Urine Color Lt. yellow (YELLOW) Urine Clarity Clear (CLEAR) Urine pH 6.0 (5.0-9.0) Ur Specific [place] 1.025 (1.005-1.025) Urine Protein Trace (NEG/TRACE) mg/dL Urine Glucose (UA) Negative (NEGATIVE) mg/dL Urine Ketones Trace A (NEGATIVE) mg/dL Urine Occult Blood Negative (NEGATIVE) Urine Nitrite Negative (NEGATIVE) Urine Bilirubin Negative (NEGATIVE) Urine Urobilinogen 0.2 (0.2-1.0) EU/dL Ur Leukocyte Esterase Negative (NEGATIVE) Urine HCG, Qual Negative (NEGATIVE) Imaging Data CT scan - abdomen: Radiologist's impression: ITS Impressions Abdomen/Pelvis CT 07/11/24 13:06 IMPRESSION: No acute intraperitoneal abnormality. Electronically authenticated by: DARA HUMPHREY Date: 07/11/2024 14:12 Discharge Plan Discharge Chief Complaint: Abdominal Pain Clinical Impression: Diarrhea Patient Disposition: Home, Self-Care Time of Disposition Decision: 14:38 Condition: Good Prescriptions / Home Meds: New dicyclomine 20 mg tablet 20 mg PO BID Qty: 10 0RF No Action hyoscyamine sulfate 0.375 mg tablet extended release 12 hr 0.375 mg PO BID escitalopram oxalate [Lexapro] 5 mg tablet 5 mg PO DAILY ondansetron HCl 4 mg tablet 4 mg PO DAILY ondansetron 4 mg tablet,disintegrating 4 mg PO Q8H PRN (Reason: nausea and vomiting) 4 Days Qty: 16 0RF dicyclomine 10 mg capsule 10 mg PO QID PRN (Reason: abdominal pain) Qty: 12 0RF Print Language: Australian Instructions: Acute Diarrhea (ED) Referrals: FÁTIMA KENDALL [Primary Care Provider] - 1 week Discharge Date/Time: 07/11/24 14:46 Documented by User: Marshall Bolden MD 07/11/24 18:46 HPI - Abdominal Pain General Chief Complaint: Abdominal Pain Stated Complaint: DIARRHEA Time Seen by Provider: 07/11/24 13:06 Related Data Home Medications ?Medication ?Instructions ?Recorded ?Confirmed hyoscyamine sulfate 0.375 mg 0.375 mg PO BID 12/27/23 03/24/24 tablet,extended release,12 hr escitalopram oxalate 5 mg tablet 5 mg PO DAILY 03/24/24 03/24/24 (Lexapro) ondansetron HCl 4 mg tablet 4 mg PO DAILY 03/24/24 03/24/24 Previous Rx's ?Medication ?Instructions ?Recorded dicyclomine 10 mg capsule 10 mg PO QID PRN abdominal pain 03/24/24 #12 caps ondansetron 4 mg disintegrating 4 mg PO Q8H PRN nausea and 03/24/24 tablet vomiting 4 days #16 tabs dicyclomine 20 mg tablet 20 mg PO BID #10 tabs 07/11/24 Allergies Allergy/AdvReac Type Severity Reaction Status Date / Time metronidazole (From Flagyl) Allergy Hives Verified 07/11/24 09:20 [facility] Medical History (Updated 07/11/24 @ 14:39 by Allyssa Chan) History of IBS ?Z87.19 - Personal history of other diseases of the digestive system (ICD-10) History of endometriosis ?Z87.42 - Personal history of other diseases of the female genital tract (ICD-10) History of Clostridioides difficile colitis ?Z86.19 - Personal history of other infectious and parasitic diseases (ICD- 10) Epigastric pain ?R10.13 - Epigastric pain (ICD-10) Nausea ?R11.0 - Nausea (ICD-10) Acute sinusitis due to respiratory syncytial virus (RSV) ?J01.90 - Acute sinusitis, unspecified (ICD-10) ?B97.4 - Respiratory syncytial virus as the cause of diseases classified elsewhere (ICD-10) Shoulder pain ?M25.519 - Pain in unspecified shoulder (ICD-10) Syncope ?R55 - Syncope and collapse (ICD-10) Paresthesia and pain of extremity ?R20.2 - Paresthesia of skin (ICD-10) ?M79.609 - Pain in unspecified limb (ICD-10) Paresthesia ?R20.2 - Paresthesia of skin (ICD-10) Back pain ?M54.9 - Dorsalgia, unspecified (ICD-10) Insomnia ?G47.00 - Insomnia, unspecified (ICD-10) Depression ?F32.A - Depression, unspecified (ICD-10) Anxiety ?F41.9 - Anxiety disorder, unspecified (ICD-10) COVID-19 ?U07.1 - COVID-19 (ICD-10) Pleurisy ?R09.1 - Pleurisy (ICD-10) IBS (irritable bowel syndrome) ?K58.9 - Irritable bowel syndrome without diarrhea (ICD-10) GERD (gastroesophageal reflux disease) ?K21.9 - Gastro-esophageal reflux disease without esophagitis (ICD-10) Palpitations ?R00.2 - Palpitations (ICD-10) Low vitamin D level ?R79.89 - Other specified abnormal findings of blood chemistry (ICD-10) Fatigue ?R53.83 - Other fatigue (ICD-10) Ovarian cyst ?N83.209 - Unspecified ovarian cyst, unspecified side (ICD-10) Pancreatitis ?K85.90 - Acute pancreatitis without necrosis or infection, unspecified (ICD- 10) Abdominal pain ?R10.9 - Unspecified abdominal pain (ICD-10) Altered bowel function ?R19.8 - Other specified symptoms and signs involving the digestive system and abdomen (ICD-10) Diarrhea ?R19.7 - Diarrhea, unspecified (ICD-10) Abnormal uterine bleeding ?N93.9 - Abnormal uterine and vaginal bleeding, unspecified (ICD-10) Pelvic pain ?R10.2 - Pelvic and perineal pain (ICD-10) Fallopian tube disorder ?N83.9 - Noninflammatory disorder of ovary, fallopian tube and broad ligament, unspecified (ICD-10) Muscle weakness ?M62.81 - Muscle weakness (generalized) (ICD-10) Dehydration ?E86.0 - Dehydration (ICD-10) Clostridium difficile infection ?A49.8 - Other bacterial infections of unspecified site (ICD-10) 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 - Personal history of other medical treatment (ICD-10) Surgical History (Updated 01/08/23 @ 10:26 by Lynette Darden NP) History of removal of skin mole ?Z98.890 - Other specified postprocedural states (ICD-10) ?Z87.2 - Personal history of diseases of the skin and subcutaneous tissue (I CD-10) History of wisdom tooth extraction ?K08.409 - Partial loss of teeth, unspecified cause, unspecified class (ICD- 10) History of esophagogastroduodenoscopy (EGD) ?Z98.890 - Other specified postprocedural states (ICD-10) History of colonoscopy ?Z98.890 - Other specified postprocedural states (ICD-10) Family History (Updated 01/08/23 @ 10:26 by Lynette Darden NP) Other Family history of hypertension Family history of prostate cancer Family history of stroke Social History Within the past year, how often did you have a drink containing alcohol: never Score interpretation: A score less than 3 is consistent with normal alcohol consumption. 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 received: Associate degree: occupational, technical, vocational program Little interest or pleasure in doing things: not at all Feeling down, depressed, or hopeless: not at all Exam Constitutional Vital Signs, click to edit/add: Last Vital Signs Temp 98.3 F 07/11/24 09:20 Pulse 70 07/11/24 14:44 Resp 18 07/11/24 14:44 BP 100/70 07/11/24 14:44 Pulse Ox 99 07/11/24 14:44 O2 Del Method Room Air 07/11/24 14:44 Course Vital Signs Vital signs: Vital Signs Temperature 98.3 F 07/11/24 09:20 Pulse Rate 92 H 07/11/24 09:20 Respiratory Rate 20 07/11/24 09:20 Blood Pressure 112/80 07/11/24 09:20 Pulse Oximetry 100 07/11/24 09:20 Oxygen Delivery Method Room Air 07/11/24 09:20 Temperature 98.3 F 07/11/24 09:20 Pulse Rate 70 07/11/24 14:44 Respiratory Rate 18 07/11/24 14:44 Blood Pressure 100/70 07/11/24 14:44 Pulse Oximetry 99 07/11/24 14:44 Oxygen Delivery Method Room Air 07/11/24 14:44 MDM - Abdominal Pain MDM Narrative Medical decision making narrative: Patient presented here chief complaint of diarrhea. Patient denied the need for IV hydration. Upon arrival to the emergency room IV was established and blood work was drawn. CBC and BMP were within normal limits. Patient does have a history of colitis in the past as well as C. difficile. She is not currently taking any antibiotics or been on antibiotics recently. Recent stool culture was negative for acute toxin. CT scan of abdomen today shows no acute intraperitoneal abnormalities. Patient denied the need for antibiotics and states she will follow-up with her GI as scheduled in July. Discharged home with prescription for Bentyl. Patient agrees with plan of care. I, Dr Bolden, have reviewed the above progress note and course of action in the ER; agree with the above. I have gone over history and physical, and discussed disposition and treatment plan with the patient. Lab Data Labs: Lab Results 07/11/24 07/11/24 Range/Units 09:35 09:39 WBC 4.4 (4.0-11.0) 10^3/uL RBC 4.66 (4.20-5.40) 10^6/uL Hgb 15.1 (12.0-16.0) g/dL Hct 43.8 (36.0-48.0) % MCV 94.0 (81.0-99.0) fL MCH 32.4 (26.7-34.0) pg MCHC 34.5 (29.9-35.2) g/dL RDW 11.2 (11.0-15.0) % Plt Count 218 (150-450) 10^3/uL MPV 10.5 (9.5-13.5) fL Neut % (Auto) 38.7 L (43.0-75.0) % Lymph % (Auto) 44.1 (20.5-60.0) % Tift % (Auto) 9.7 (1.7-12.0) % Eos % (Auto) 5.7 (0.9-7.0) % Baso % (Auto) 1.6 (0.2-2.0) % Neut # (Auto) 1.7 (1.4-6.5) 10^3/uL Lymph # (Auto) 2.0 (1.2-3.8) 10^3/uL Tift # (Auto) 0.4 (0.3-0.8) 10^3/uL Eos # (Auto) 0.3 (0.0-0.7) 10^3/uL Baso # (Auto) 0.1 (0.0-0.1) 10^3/uL Abs Immat Gran (auto) 0.01 (0.00-0.03) 10^3/uL Imm/Tot Granulo (auto) 0.2 (0.0-0.5) % Sodium 140 (136-145) mmol/L Potassium 3.8 (3.5-5.1) mmol/L Chloride 103 (98-107) mmol/L Carbon Dioxide 26.9 (21.0-32.0) mmol/L Anion Gap 13.9 BUN 9.0 (7.0-18.0) mg/dL Creatinine 0.80 (0.55-1.02) mg/dL Est GFR ( Amer) >60 (>=60 mL/min/1.73m^2) Est GFR (Non-Af Amer) >60 (>=60 mL/min/1.73m^2) BUN/Creatinine Ratio 11.2 Glucose 97 (74-106) mg/dL Calcium 9.4 (8.5-10.1) mg/dL Total Bilirubin 0.9 (0.2-1.0) mg/dL AST 18 (15-37) U/L ALT 16 (14-59) U/L Alkaline Phosphatase 52 (46-116) U/L Total Protein 7.9 (6.4-8.2) g/dL Albumin 4.4 (3.4-5.0) g/dL Globulin 3.5 g/dL Albumin/Globulin Ratio 1.3 Lipase 25.0 (16.0-77.0) U/L Urine Color Lt. yellow (YELLOW) Urine Clarity Clear (CLEAR) Urine pH 6.0 (5.0-9.0) Ur Specific [place] 1.025 (1.005-1.025) Urine Protein Trace (NEG/TRACE) mg/dL Urine Glucose (UA) Negative (NEGATIVE) mg/dL Urine Ketones Trace A (NEGATIVE) mg/dL Urine Occult Blood Negative (NEGATIVE) Urine Nitrite Negative (NEGATIVE) Urine Bilirubin Negative (NEGATIVE) Urine Urobilinogen 0.2 (0.2-1.0) EU/dL Ur Leukocyte Esterase Negative (NEGATIVE) Urine HCG, Qual Negative (NEGATIVE) Imaging Data CT scan - abdomen: Radiologist's impression: ITS Impressions Abdomen/Pelvis CT 07/11/24 13:06
[2024-07-11 14:44] VITALS: BP 100/70; PULSE 70; O2SAT 99
== END 2024-07-11 14:46 | disposition home or self-care (01) ==
PROVIDERS: Emergency Provider Emergency Medicine; PCP Nurse Practitioner Family
DX: R19.7 Diarrhea, unspecified (principal); Z87.19 Personal history of other diseases of the digestive system
CPT/HCPCS: 36415; 74177; 80053; 81003; 83690; 84703; 85025; 99285; Q0162

== ENCOUNTER 2024-11-04 10:43 | Emergency (ER) | payer BC, SELFPAY ==
[2024-11-04] VITALS (26 sets, daily range): BP systolic 89–123; BP diastolic 54–87; PULSE 35–96; TEMP 36.9; O2SAT 97–100; BMI 18.0
--- NOTE | 2024-11-04 10:55 | ECG_ITS ---
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 Measurements Intervals [place] Rate: 74 P: 78 TN: 138 QRS: 64 QRSD: 96 T: 75 QT: 406 QTc: 433 Interpretive Statements 1100 Sinus rhythm 1575 with frequent ventricular premature complexes in a pattern of bigeminy 2420 RSR (QR) in lead V1/V2, consistent with right ventricular conduction delay 9140 abnormal rhythm ECG Compared to ECG 11/02/2023 14:04:41 No significant changes Electronically Signed On 11-04-2024 19:29:53 EDT by EVELIA ANDERSON M.D.
--- OUTSIDE RECORDS SUMMARY | 2024-11-04 10:59 | XMS_ITS | CCD ---
Author Organization [facility] Care Team Providers Care Club Director Name Role Phone SruthiArlene Unavailable Jaya Parikh Unavailable SELF, REFERRED Primary Care Unavailable SELF, REFERRED Referring Unavailable PAULA HUGGINS Admitting Unavailable PAULA HUGGINS Attending Unavailable Unavailable Primary Care Provider UnavailIRENA De Paz Attending Unavailable JAYA PARIKH Referring Unavailable Silvano Reyez Unavailable HEMEYER ., DR [...] Attending Unavailable JAYA PARIKH Primary Care Unavailable MISC, DR HELLER Consulting Unavailable DARA CEDILLO Consulting Unavailable MISC, DR HELLER Admitting Unavailable MISC, DR HELLER Attending Unavailable HEMEYER ., DR MATA Primary Care Unavailable MISC, DR HELLER Consulting Unavailable HEMEYER ., DR MATA Admitting Unavailable HEMEYER ., DR MATA Attending Unavailable HEMEYER ., EDLETICIA Primary Care Unavailable HEMEYER ., DR MATA Consulting Unavailable HOY, GABINO Admitting Unavailable HOY, GABINO Attending Unavailable HOY, GABINO Primary Care Unavailable HOY, GABINO Consulting Unavailable HEMEYER ., DR MATA Admitting [...] Admitting Unavailable MISC, DR HELLER Attending Unavailable DITTAllan, JAYA Primary Care Unavailable DIJAYA ROBERTS Consulting Unavailable HEMEYER ., DR MATA Primary Care Unavailable DIAB ., JAMIL Admitting Unavailable DIAB ., JAMIL Attending Unavailable DIAB ., JAMIL Consulting Unavailable MISC, DR HELLER Admitting Unavailable MISC, DR HELLER Attending Unavailable HEMEYER ., DR MATA Primary Care Unavailable D[place], DR DARA Ledezma Consulting Unavailable MISC, DR [...] HEMEYER ., DR MATA Primary Care Unavailable JAYA PARIKH Consulting Unavailable [...] DR HELLER Attending Unavailable HEMEYER ., DR AMTA Primary Care Unavailable MISC, DR HELLER Consulting Unavailable HOY, GABINO Admitting Unavailable HOY GABINO Attending Unavailable HOY, GABINO Primary Care Unavailable HOY, GABINO Consulting Unavailable DITTY, JAYA Primary Care Unavailable REINECK, DR MARIANNE Preciado Admitting Unavailabl e REINECK, DR MARIANNE Preciado Attending Unavailabl e REINECK, DR MARIANNE Preciado Consulting Unavailabl e MISC, DR HELLER Admitting Unavailable MISC, DR HELLER Attending Unavailable HOY, GABINO Primary Care Unavailable MISC, DR HELLER Consulting Unavailable Gabino Owen MD Primary Care Provider [phone] Jose Luis Hernandez Attending Unavailab le Jose Luis Hernandez Admitting Unavailab le NON STAFF Primary Care Unavailable Provider, Ordering Unavailable Analia Holliday Unavailable DAVID Holliday Primary Care Provider DAVID Holliday Attending Provider [phone] Analia Holliday CNP Primary Care Provider Analia Holliday CNP Primary Care Provider DO Ana Bolton Attending Provider [phone] KAPLE, ANALIA M Primary Care Unavailable SINANMILAGROSLidia Referring Unavailable ELIF HESS Attending Unavailable DARA BUTLER Referring Unavailable KAPLE, ANALIA M Primary Care Unavailable KAPLE, ANALIA M Primary Care Unavailable SEEMA DAVIS Admitting Unavailable SEEMA DAVIS Attending Unavailable DARA BUTLER Referring Unavailable KAPLE, ANALIA M Primary Care Unavailable DARA BUTLER Referring Unavailable HOAllan GABINO M Primary Care Unavailable DARA BUTLER Referring Unavailable CHARLI GABINO M Primary Care Unavailable Gabino Owen MD Primary Care Provider [phone] Jennifer Frzaier MD Primary Care Provider Shantell MACKEY, Kyree Raman Primary Care Provider [phone] Kyree Noguera MD Unavailable JEREMIAH BURROUGHS Attending Unavailable ELIF RICH Attending Unavailable JEREMIAH BURROUGHS Attending Unavailable Unavailable Primary Care Provider Unavailaldair e SEEMA DAVIS Referring Unavailable KAPLE, ANALIA M Primary Care Unavailable MADHU CAUSEY Referring Unavailable KAPLE, ANALIA M Primary Care Unavailable NAE IBARRA Referring Unavailable JENNIFER FRAZIER Primary Care Unavailable Ana Bolton Attending Unavailable Ana Bolton Admitting Unavailable Analia Dennis Attending Unavailable Analia Dennis Admitting Unavailable Rohrbacher Analia GALDAMEZ Attending Provider PAULA HUGGINS Attending Unavailable Unavailable Primary Care Provider Unavailabl e DARA BUTLER JR Referring Unavailable KAPLE, ANALIA M Primary Care Unavailable ARIELLA MCCOY Attending Unavailable KAPLE, ANALIA M Referring Unavailable KAPLE, ANALIA M Primary Care Unavailable KAPLE, ANALIA M Primary Care Unavailable SEDRICK RUSHING Referring Unavailable SEEMA DAVIS Referring Unavailable KAPLE, ANALIA M Primary Care Unavailable SEDRICK RUSHING Attending Unavailable SEEMA DAVIS Referring Unavailable KAPLE, ANALIA M Primary Care Unavailable SEEMA DAVIS Attending Unavailable MYRALE, ANALIA M Primary Care Unavailable PAULA PRETTY Attending Unavailable DARA BUTLER JR Referring Unavailable MERRICK MELLO Attending Unavailable JENNIFER FRAZIER Primary Care Unavailable NAE IBARRA Attending Unavailable JENNIFER FRAZIER Primary Care Unavailable ANALIA HOLLIDAY Primary Care Unavailable PAULA PRETTY Attending Unavailable ANALIA HOLLIDAY Primary Care Unavailable BOLA BRADEN Attending Unavailable ANALIA HOLLIDAY Primary Care Unavailable DARA BUTLER JR Attending Unavailable ANALIA HOLLIDAY Primary Care Unavailable Allergies Allergy Classification Reported Allergen(s) Allergy Type Date of Onset Reaction(s) Facility Nitroimidazoles (antibiotic) (1 source) metroNIDAZOLE Drug Allergy 1 Mental Status Change, Diarrhea, GI Upset, Hives, Other: See Comments, Rash, Shortness of Breath, Unknown, Vomiting [facility] (20 sources) metroNIDAZOLE; Translations: [METRONIDAZOLE] Drug Allergy 1 Mental Status Change, Diarrhea, GI Upset, Hives, Other: See Comments, Rash, Shortness of Breath, Unknown, Vomiting [facility] (1 source) metroNIDAZOLE Drug Allergy 3 [facility] (8 sources) Vancomycin Drug Allergy Unknown [facility] Other (1 source) metroNIDAZOLE Drug Allergy 4 [facility] Repository (1 source) Vancomycin Drug Allergy 4 [facility] Rep[facility] Medications Current Medications Medication Drug Class(es) Dates Sig (Normalized) Sig (Original) cholecalciferol, vitamin D3, (VITAMIN D3 ORAL) (2 sources) take 1 tablet by mouth in the morning cholecalciferol, vitamin D3, (VITAMIN D3 ORAL) Take 1 tablet by mouth in the morning. Active colestipol hydrochloride 1000 mg oral tablet (2 sources) Bile Acid Sequestrant Start: 09-05-2024 End: 12-08-2024 take 2 tablets by mouth once daily colestipol (COLESTID) 1 gram tablet Take 2 tablets by mouth once daily. 60 tablet 2 09/09/2024 12/08/2024 Active dicyclomine hydrochloride 20 mg oral tablet (20 sources) Anticholinergic Start: 03-14-2024 End: 06-12-2024 take 1 tablet by mouth twice daily dicyclomine (BENTYL) 20 mg tablet Take 1 tablet by mouth two times a day. 60 tablet 2 03/14/2024 06/12/2024 Active Start: 11-29-2023 take 1 capsule by mo uth every twenty-four hours as needed dicyclomine (Bentyl) 10 MG capsule Take 10 mg by mouth Daily as needed 11/29/2023 Active Start: 11-29-2023 take 1 capsule by mo uth three times daily as needed Dicyclomine 10 mg capsule Active 10 MG PO Three times daily as needed November 29, 2023 12:00am FreeTextSig: TAKE 1 [...] as needed. Take 1 tablet by joel q 8 HR. escitalopram 10 mg oral tablet (20 sources) Serotonin Reuptake Inhibitor Start: take 1 tablet by mouth once daily Escitalopram Oxalate 10 mg tablet Active 10 MG PO Daily March 19, 2024 1:44pm Start: 01-16-2024 End: 03-19-2024 take 1 tablet by mouth once daily Escitalopram Oxalate 5 mg tablet Discontinued 5 MG PO Daily January 16, 2024 12:00am March 19, 2024 1:45pm Start: 11-29-2023 take 0.5 tablet by m out once daily escitalopram (Lexapro) 10 mg tablet Take 0.5 tablets (5 mg) by mouth once daily. 11/29/2023 Active Start: 11-29-2023 End: 01-16-2024 take 1 tablet by mouth once daily Escitalopram Oxalate Discontinued 5 MG PO Daily November 29, 2023 11:36am January 16, 2024 10:59pm FreeTextSi tablet Orally Once a day; Note: Source Status: Taking; Provider: Miya Helms ( ) Start: 11-29-2023 End: 01-16-2024 take 1 tablet by mouth once daily Escitalopram Oxalate 10 mg tablet Discontinued 5 MG PO Daily November 29, [...] TODAY Active gabapentin 100 mg oral capsule (10 sources) Anti-epileptic Agent Start: 04-30-2024 End: 04-23-2025 [...] s needed. predniSONE 20 mg oral tablet (12 sources) Start: 04-04-2023 End: 04-14-2023 take 1 [...] 03/27/2023 Active Start: 10-31-2020 End: 11-29-2023 take 1 tablet by mouth once daily at mealtime Prednisone 50 mg tablet Discontinued 50 MG PO Daily 11 24October 31, 2020 12:00am November 29, 2023 11:18am administer with food or milk Comment on above: Take 1 tablet by joel th once daily for 14 days. Take 1 tablet by joel th once daily for 10 days. vancomycin 125 mg oral capsule (2 sources) Glycopeptide Antibacterial Start: End: take 1 capsule by mouth three times daily vancomycin (VANCOCIN) 125 mg capsule Indications: Clostridium difficile infection Take 1 capsule by mouth three times a day for 10 days. 30 capsule 07/14/2024 07/24/2024 Active Completed/Discontinued Medications Medication Drug Class(es) Dates Sig [...] by joel th daily at bedtime. amylase 103362 unt / lipase 09848 unt / protease 49614 unt delayed release oral capsule (16 sources) Start: 06-06-2023 End: 10-22-2023 take 2 capsules by mouth twice daily at mealtime uytbtb-ufvynmkd-chhqu se (CREON) 24,000-76,000 -120,000 unit delayed release capsule Take 2 capsules by mouth two times a day with meals. 120 capsule 0 06/06/2023 10/22/2023 Discontinued Start: 02-06-2023 End: 05-22-2023 take 1 capsule by mouth three times daily at mealtime juyvbt-hcwbktgx-adnaumt (ZENPEP) 40,000-126,000- 168,000 unit delayed release capsule Indications: Generalized abdominal pain , Chronic pancreatitis, unspecified pancreatitis type (HCC) , Intestinal malabsorption, unspecified type Take 1 capsule by mouth three times daily with meals. 90 capsule 2 02/06/2023 05/22/2023 Discontinued Comment on above: Take 1 capsule by mo [facility] three times daily with meals. [facility] 2 [facility] a [facility] with meals. [...] Comment on above: Take 1 capsule by [facility] three times daily with meals. TAKE 1 CAPSULE BY [facility] THREE TIMES DAILY WITH MEALS cholecalciferol 0.05 mg oral capsule (7 sources) Vitamin D Start: 2023 End: 2023 take 1 capsule by mouth once daily Cholecalciferol (Vitamin D3) 50 mcg (2,000 unit) capsule Discontinued 2000 UNIT PO Daily November 29, 2023 12:00am March 19, 2024 1:34pm FreeTextSi capsule Orally Once a day; Note: Source Status: Start; Refills: 4; Provider: Miya Moise Start: 06-11-2023 take 1 capsule by [facility] every twenty-four hours Vitamin D3 50 MCG (1999 UT) 1 capsule Orally Once a day for 30 days May, Active cyclobenzaprine hydrochloride 10 mg oral tablet (7 sources) Muscle Relaxant Start: 10-31-2020 End: 03-19-2024 take 1 tablet by mouth three times daily as needed for muscle spasms Cyclobenzaprine 10 mg tablet Discontinued 10 MG PO Three times daily as needed for muscle spasm October 31, 2020 12:00am March 19, 2024 1:35pm diclofenac sodium 50 mg delayed release oral tablet (7 sources) Nonsteroidal Anti-inflammatory Drug Start: 10-31-2020 End: 11-29-2023 take 1 tablet by mouth every twelve hours as needed for pain Diclofenac Sodium 50 mg tablet,delayed release (DR/EC) Discontinued 50 MG PO Q12H as needed for pain October 31, 2020 12:00am November 29, 2023 [...] WEEKS. hydrOXYzine hydrochloride 25 mg oral tablet (7 sources) Antihistamine Start: 10-31-2020 End: 03-19-2024 take 1 tablet by mouth every six hours as needed for anxiety Hydroxyzine Hcl 25 mg tablet Discontinued 25 MG PO Q6H as needed for anxiety October 31, 2020 12:00am March 19, 2024 [...] guidelines link. lidocaine 0.05 mg/mg medicated patch (7 sources) Antiarrhythmic, Amide Local Anesthetic Start: 11-01-19 End: 11-29-19 apply 1 dose topically once daily as needed for pain Lidocaine 5 % adhesive patch,medicated Discontinued 1 PATCH TOPICAL Daily as needed for pain October 31, 2020 12:00am November 29, 2023 11:18am leave on most painful area for up to 12 hrs pantoprazole 40 mg delayed release oral tablet (10 sources) Proton Pump Inhibitor Start: 01-22-20 End: 04-30-20 take 1 tablet by mouth once daily [...] gestation 30 suppository 3 06/23/2024 07/23/2024 Active 1000 ml sodium chloride 9 mg/ml injection (1 source) Start: 09-03-2024 End: 09-04-2024 take 30 mL intravenously every hour 30 mL/hr, INTRAVENOUS, CONTINUOUS, Starting on Sun09/03/24 at 1030, Until Sun09/04/24 at 0420, Preprocedure sucralfate 1000 mg oral tablet (2 sources) [...] pain; Translations: [Right upper quadrant pain] Onset: 2 Episodic Anxiety disorders (19 sources) Generalized anxiety disorder; Translations: [Generalized anxiety disorder] Onset: 2 Chronic Aortic; peripheral; and visceral artery aneurysms (1 source) Carotid artery aneurysm; Translations: [Aneurysm of carotid artery] 12-02-2020 Chronic Biliary tract disease (1 source) Cholecystitis, unspecified; Translations: [Cholecystitis] Onset: 4 Episodic Cardiac dysrhythmias (1 source) Supraventricular tachycardia; Translations: [Other supraventricular tachycardia (HCC)] 10-22-2023 Chronic Esophageal disorders (8 sources) Gastroesophageal reflux disease; Translations: [Gastro-esophageal reflux disease without esophagitis] 11-29-2023 Chronic Genitourinary symptoms and ill-defined conditions (11 sources) Personal history of urinary (tract) infections; Translations: [Dysuria] Onset: 3 01-24-2023 Episodic Heart valve disorders (3 sources) Heart murmur; Translations: [Cardiac murmur, unspecified] 03-19-2024 Episodic Immunizations and screening for infectious disease (4 sources) Contact with and (suspected) exposure to other viral communicable diseases; Translations: [Encounter for screening for human papillomavirus (HPV)] Onset: 1 Resolved: 1 Episodic Malaise and fatigue (20 sources) Chronic [...] tissue, and skin] 07-01-2024 Episodic Nutritional deficiencies (12 sources) Vitamin D deficiency; Translations: [Vitamin D deficiency, unspecified] Onset: 4 Chronic Nutritional deficiencies (2 sources) Cobalamin deficiency; Translations: [Deficiency of other specified B group vitamins] Onset: 4 07-15-2024 Episodic Other aftercare (1 source) Surgical follow-up; Translations: [Encounter for follow-up examination after completed treatment for conditions other than malignant neoplasm] 12-05-2023 Episodic Other aftercare (2 sources) H/O: miscarriage; Translations: [Encounter for other specified aftercare] 07-03-2024 Episodic Other aftercare (6 sources) H/O: high risk medication; Translations: [Other snf (current) drug therapy] Onset: 4 07-15-2024 Episodic Other circulatory disease (5 sources) Celiac artery compression syndrome; 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 Other connective tissue disease (7 sources) Pain in upper limb; Translations: [Pain [...] Onset: 2 05-22-2023 Chronic Other gastrointestinal disorders (10 sources) Irritable bowel syndrome with diarrhea; Translations: [Irritable bowel syndrome] Onset: 2 Chronic Other gastrointestinal disorders (1 source) Intestinal malabsorption; Translations: [Intestinal malabsorption, unspecified] 02-06-2023 Chronic Other gastrointestinal disorders (1 source) Intestinal malabsorption, unspecified; Translations: [Intestinal malabsorption, unspecified type] Onset: 3 Chronic Other gastrointestinal disorders (7 sources) Diarrhea; Translations: [Diarrhea, unspecified] Episodic Other gastrointestinal disorders (9 sources) Diarrhea, unspecified; Translations: [Diarrhea] Onset: 3 Episodic Other gastrointestinal disorders (4 sources) Personal history of other diseases of the digestive system; Translations: [PERSONAL HX OTH DZ DIGESTIVE SYSTEM] Onset: 3 Episodic Other gastrointestinal disorders (3 sources) History of pancreatitis; Translations: [Personal history of other diseases of the digestive system] 12-02-2020 Episodic Other gastrointestinal disorders (9 sources) Altered bowel function; Translations: [Other specified symptoms and signs involving the digestive system and abdomen] Onset: 2 01-24-2023 Episodic Other gastrointestinal disorders (1 source) Change in bowel habit; Translations: [Change in bowel habits] Onset: 5 Episodic Other infections; including parasitic (2 sources) Personal history of other infectious and parasitic diseases; Translations: [Personal history of other infectious and parasitic diseases] Onset: 3 06-06-2023 Episodic Other infections; including parasitic (1 source) History of Clostridium difficile intestinal infection; Translations: [Personal history of other infectious and parasitic diseases] 05-22-2023 Episodic Other infections; including parasitic (3 sources) History of bacterial infection; Translations: [Personal history of other infectious and parasitic diseases] 03-19-2024 Episodic Other nutritional; endocrine; and metabolic disorders [...] diseases of the circulatory system] 12-02-2020 Episodic Spondylosis; intervertebral disc disorders; other back problems (20 sources) Neck pain; Translations: [Cervicalgia] Onset: 2 12-09-2021 Episodic Unclassified (1 source) APPOINTMENT CANCELLED 03-26-2024 Unclassified (1 source) Other supraventricular tachycardia (HCC); Translations: [Other supraventricular tachycardia (HCC)] Onset: 4 Urinary tract infections (1 source) Urinary tract infection, site not specified; Translations: [Urinary tract infection, site not specified] Onset: 5 Episodic Past or Other Problems Problem Classification Problem Date Documented Da te Episodic/Chronic Allergic reactions (20 sources) Urticaria; Translations: [Urticaria, unspecified] Onset: 12-09-2021 12-09-2021 Episodic Anxiety disorders (20 sources) Organic anxiety disorder; 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] Onset: 11-15-2023 11-15-2023 Episodic Cardiac dysrhythmias (20 sources) Palpitations; Translations: [...] gastritis without bleeding] Onset: 05-02-2022 01-24-2023 Episodic Intestinal infection (20 sources) Clostridial enteric [...] 04-19-2023 Episodic Other gastrointestinal disorders (7 sources) Borborygmi; [...] cyst, left side] Onset: 01-24-2023 01-24-2023 Episodic Residual codes; unclassified (1 source) Acquired absence of other specified parts of digestive tract; Translations: [Other postprocedural status] 01-09-2024 Episodic Spontaneous (7 sources) Miscarriage; Translations: [Complete or unspecified spontaneous without complication] Onset: 01-24-2023 01-24-2023 Episodic Unclassified (5 sources) Onset: 02-05-2024 02-05-2024 Results Test Name Value Interpretation Reference Range Facility ANES POSTPROC EVALon 025 ANES POSTPROC EVAL HNO ID: [id number] Author: MERRICK MELLO APRN.CRNA Service: ? Author Type: Nurse Township Clerk Type: Anesthesia Postprocedure Evaluation Filed: 09/03/2024 10:48 Note Text: POST ANESTHESIA EVALUATION NOTE : 2000 Procedure Summary Date: 09/03/24 Room / Location: [facility] Endoscopy [facility] Anesthesia Start: 1026 Anesthesia Stop: 1043 Procedure: COLONOSCOPY DIAGNOSTIC Diagnosis: Generalized abdominal pain Change in bowel habits (Generalized abdominal pain) (Diarrhea) (Change in bowel habits) Scheduled Providers: Dara Butler Jr., ; Merrick Mello APRN.CRNA; Karla Ball RN Responsible Provider: Merrick Mello APRN.CRNA Anesthesia Type: MAC ASA Status: 2 Anesthesia Type: MAC Last Vitals Vitals Value Taken Time BP 91/51 09/03/24 1047 Temp 09/03/24 1047 Pulse 81 09/03/24 1047 Resp 24 09/03/24 1047 SpO2 100 09/03/24 1047 Post Anesthesia Patient Status Patient Evaluation: bedside. Anticipated Disposition: phase 2 then home. Neurological Status: aware and responsive. Pulmonary Status: breathing comfortably on room air Airway Control: returned to baseline unsupported. Cardiovascular Status: stable. Pain Management: clinically adequate Postoperative Hydration: acceptable. Intraoperative Events: no significant anesthesia events Post Operative Nausea/Vomiting Status: no significant post operative nausea or vomiting Recommendation: continue current plan of care. Anesthesia Observations No Documentation SIGNATURE: Merrick Mello APRN.CRNA PATIENT NAME: Chioma Alonzo DATE: September 03, 2024 TIME: 10:47 AM CSN: [id number] Normal [facility] ANES PRE-OPon 09-03-2024 ANES PRE-OP HNO ID: [id number] Author: MERRICK MELLO APRN.CRNA Service: ? Author Type: Nurse Township Clerk Type: Anesthesia Preprocedure Evaluation Filed: 09/03/2024 10:18 Note Text: ANESTHESIOLOGY DAY OF SURGERY NOTE : 2000 Procedure Information Date/Time: 09/03/24 1230 Scheduled providers: Dara Butler Jr., DO; Merrick Mello APRN.CRNA; Karla Ball RN Procedure: COLONOSCOPY DIAGNOSTIC Location: [facility] [place] Estimated body mass index is 19.74 kg/m? as calculated from the following: Height as of this encounter: 162.6 cm (5' 4 ). Weight as of this encounter: 52.2 kg (115 lb). Most recent hematocrit and potassium results: Hematocrit 41.5 12/27/2023 Potassium 4.3 12/27/2023 Relevant Problems No relevant active problems Anxiety, Depression, GERD 10/2023 Echo: WNL, 09/2023 EKG: SR with arrhytmia's FB I - PHYSICAL EVALUATION AIRWAY Patient intubated: No. Tracheostomy tube not present Mallampati: I. TM distance: >3 FB. Neck ROM: full ROM without neurological symptoms. Mouth opening: adequate. Short neck: no. Thick neck: no Diamond present: no DENTAL Dental findings: teeth intact. II - ANESTHESIA PLAN ASA Score: 2 Anesthetic Plan: MAC The patient is not a current smoker. NPO Status: adequate Beta Michelle Monitoring Plan Monitoring plan: standard ASA. Post Procedure Analgesic Plan Postoperative analgesic plan: per surgical service. Informed Consent Anesthetic risks, benefits, alternatives, personnel and consent discussed: yes. Patient / Responsible Democrat agrees to proceed: yes Patient / Surrogate agrees to blood products: blood products not planned DNR status not reviewed with patient and/or family prior to surgery. Significant changes in the patient condition since the History and Physical, not otherwise documented in primary service progress note: no. Potential Anesthesia issues that may suggest increased risk of complications or contraindication to planned procedure: none. Vitals Value Taken Time BP 106/69 09/03/24 1013 Pulse 68 09/03/24 1013 Resp 16 09/03/24 1013 Temp 36.9 ?C (98.4 ?F) 09/03/24 1013 SpO2 100 % 09/03/24 1013 Outpatient Medications as of 09/03/2024 Medication Sig escitalopram oxalate (LEXAPRO) 10 mg tablet Take 5 mg by mouth once daily. ondansetron (ZOFRAN) 4 mg tablet Take 4 mg by mouth as needed. gabapentin (NEURONTIN) 100 mg capsule take 1 tab PO qHS x 3 days, then take 1 tab PO BID x 3 days, then take 2 tabs PO BID if tolerated. No current facility-administered medications on file as of 09/03/2024. I have interviewed and examined the patient. I have reviewed the medical record and/or the pre-anesthesia evaluation, pertinent labs, and test results. This contains updated information obtained within 48 hours of Surgery/Procedure. SIGNATURE: Merrick Mello APRN.RUBBER GOODS SUPERVISOR PATIENT NAME: Chioma Alonzo DATE: September 03, 2024 TIME: 10:18 AM CSN: [id number] Normal [facility] Colonoscopyon 09-03-2024 Colonoscopy [facility] Patient Name: Chioma Alonzo Procedure Date: 09/03/2024 10:20 AM Date of : 2000 Admit Type: Outpatient Age: 23 Gender: Female Note Status: Finalized Attending MD: Dara Butler Jr, DO, [id number] Procedure: Colonoscopy Indications: Generalized abdominal pain, Diarrhea, Change in bowel habits Providers: Dara Butler Jr, DO Patient Profile: This is a 23 year old female. Refer to note in patient chart for documentation of history and physical. Last Colonoscopy: 3 years ago. Referring Physician: Dara Butler Jr, DO (Referring MD) Medicines: Propofol per Anesthesia, Monitored Anesthesia Care Complications: No immediate complications. Requesting Provider: Procedure: Pre-Anesthesia Assessment: - Prior to the [...] satisfactory condition to undergo the procedure. After I obtained informed consent, the scope was passed under direct vision. Throughout the procedure, the patient's blood pressure, pulse, and oxygen saturations were monitored continuously. The Colonoscope was introduced through the anus and advanced to the terminal ileum, with identification of the appendiceal orifice and IC valve. The colonoscopy was performed without difficulty. The patient tolerated the procedure well. The quality of the bowel preparation was excellent. The entire colon was well visualized. The terminal ileum, ileocecal valve, appendiceal orifice, and rectum were photographed. Scope Withdrawal Time: 0 hours 10 minutes 44 seconds Total Procedure Duration: 0 hours 13 minutes 39 seconds Findings: The digital rectal exam was normal. The terminal ileum appeared normal. Normal mucosa was found in the entire colon. Biopsies for histology were taken with a cold forceps from the entire colon for evaluation of microscopic colitis. No additional abnormalities were found on retroflexion. Moderate Sedation: MAC anesthesia was administered by the anesthesia team. Impression: - The examined portion of the ileum was normal. - Normal mucosa in the entire examined colon. Biopsied. Recommendation: - Discharge patient to home. - Resume regular diet. - Continue present medications. - Await pathology results. - Repeat colonoscopy age 43 for screening purposes. - Maintain dicyclomine. - Consider colestipol pending pathology. - Patient has a contact number available for emergencies. The signs and symptoms of potential delayed complications were discussed with the patient. Return to normal activities tomorrow. Written discharge instructions were provided to the patient. Procedure Code(s): --- Professional --- 28426, Colonoscopy, flexible; with biopsy, single or multiple Diagnosis Code(s): --- Professional --- R10.84, Generalized abdominal pain R19.7, Diarrhea, unspecified R19.4, Change in bowel habit CPT copyright 2020 [employer]. All rights reserved. The codes documented in this report are preliminary and upon medical biller coder review may be revised to meet current compliance requirements. Attending Participation: I personally performed the entire procedure. MD Dara Egan Jr, DO 09/03/2024 10:46:48 AM This report has been signed electronically by Dara Butler Jr, DO Number of Addenda: 0 Note Initiated On: 09/03/2024 10:20 AM Procedure Start: 10:28:48 AM Procedure End: 10:42:27 AM Normal [facility] Flexible sigmoidoscopy study on 09-03-2024 [facility] Patient Name: Chioma Alonzo Procedure Date: 09/03/2024 10:20 AM Date of : 2000 Admit Type: Outpatient Age: 23 Gender: Female Note Status: Finalized Attending MD: Dara Butler Jr, DO, [id number] Procedure: Colonoscopy Indications: Generalized abdominal pain, Diarrhea, Change in bowel habits Providers: Dara Butler Jr, DO Patient Profile: This is a 23 year old female. Refer to note in patient chart for documentation of history and physical. Last Colonoscopy: 3 years ago. Referring Physician: Dara Butler Jr, DO (Referring MD) Medicines: Propofol per Anesthesia, Monitored Anesthesia Care Complications: No immediate complications. Requesting Provider: Procedure: Pre-Anesthesia Assessment: - Prior to the [...] satisfactory condition to undergo the procedure. After I obtained informed consent, the scope was passed under direct vision. Throughout the procedure, the patient's blood pressure, pulse, and oxygen saturations were monitored continuously. The Colonoscope was introduced through the anus and advanced to the terminal ileum, with identification of the appendiceal orifice and IC valve. The colonoscopy was performed without difficulty. The patient tolerated the procedure well. The quality of the bowel preparation was excellent. The entire colon was well visualized. The terminal ileum, ileocecal valve, appendiceal orifice, and rectum were photographed. Scope Withdrawal Time: 0 hours 10 minutes 44 seconds Total Procedure Duration: 0 hours 13 minutes 39 seconds Findings: The digital rectal exam was normal. The terminal ileum appeared normal. Normal mucosa was found in the entire colon. Biopsies for histology were taken with a cold forceps from the entire colon for evaluation of microscopic colitis. No additional abnormalities were found on retroflexion. Moderate Sedation: MAC anesthesia was administered by the anesthesia team. Impression: - The examined portion of the ileum was normal. - Normal mucosa in the entire examined colon. Biopsied. Recommendation: - Discharge patient to home. - Resume regular diet. - Continue present medications. - Await pathology results. - Repeat colonoscopy age 43 for screening purposes. - Maintain dicyclomine. - Consider colestipol pending pathology. - Patient has a contact number available for emergencies. The signs and symptoms of potential delayed complications were discussed with the patient. Return to normal activities tomorrow. Written discharge instructions were provided to the patient. Procedure Code(s): --- Professional --- 19885, Colonoscopy, flexible; with biopsy, single or multiple Diagnosis Code(s): --- Professional --- R10.84, Generalized abdominal pain R19.7, Diarrhea, unspecified R19.4, Change in bowel habit CPT copyright 2020 [employer]. All rights reserved. The codes documented in this report are preliminary and upon medical biller coder review may be revised to meet current compliance requirements. Attending Participation: I personally performed the entire procedure. MD Dara Egan Jr, (more content not included)... PROVATION [facility] Radiology Study observation (narrative) [facility] HISTORY PHYSICALon HISTORY PHYSICAL HNO ID: [id number] Author: DARA BUTLER JR, DO Service: Gastroenterology Author Type: Physician Type: H&P Filed: 09/03/2024 10:19 Note Text: HISTORY AND PHYSICAL EXAMINATION SERVICE DATE: 09/03/2024 SERVICE TIME: 10:18 AM Chief Complaint: diarrhea HPI:This is a 23 year old female who presents with diarrhea and lower abd pain. History of cholecystectomy and appendectomy. Negative family history. PAST MEDICAL HISTORY Diagnosis Date Pancreatitis PAST SURGICAL HISTORY Procedure Laterality Date COLONOSCOPY EGD ENDOMETRIAL WASHINGS laproscopicaly LAPAROSCOPIC CHOLECYSTECTOMY 11/21/2023 FAMILY HISTORY Problem Relation Age of Onset Stroke Mother Heart Father Prostate Cancer Father Colon Cancer No Family History Social History Tobacco Use Smoking status: Never Smokeless tobacco: Never Vaping Use Vaping status: Never Used Substance Use Topics Alcohol use: Not Currently Comment: socially- rare Drug use: Not Currently Types: Marijuana Comment: rare edible (Not in a hospital admission) ALLERGIES Allergen Reactions Metronidazole Mental Status Change, Diarrhea, GI Upset, Hives, Other: See Comments, Rash, Shortness of Breath, Unknown, Vomiting COMPLETE REVIEW OF SYSTEMS: GENERAL: No weight loss, malaise or fevers RESPIRATORY: Negative for cough, hemoptysis, wheezing, COPD, dyspnea or shortness of breath CARDIOVASCULAR: Negative for chest pain, leg swelling, hypertension, CHF or palpitations GI: Positive for abdominal discomfort , diarrhea BP 106/69 Pulse 68 Temp (Src) 98.4 (Temporal) Resp 16 Ht 5' 4 (1.63m) Wt 115 lb (52.2kg) SpO2 100% LMP 01/30/2024 BMI 19.73 kg/(m2). O2 Therapy: Room Air PHYSICAL EXAM: Physical Exam Performed: GENERAL: Alert, no distress, cooperative LUNGS: Lungs clear to auscultation, Good diaphragmatic excursion CARDIAC: Normal S1 and S2; no rubs, murmurs, or gallops ABDOMEN: Abdomen soft, non-tender, BS normal, No masses or organomegaly EXTREMITIES: Extremities normal, no deformities, edema, clubbing or skin discoloration. Good capillary refill., No ulcers (R10.84) Generalized abdominal pain Plan: COLONOSCOPY DIAGNOSTIC, COLONOSCOPY DIAGNOSTIC (R19.4) Change in bowel habits Plan: COLONOSCOPY DIAGNOSTIC, COLONOSCOPY DIAGNOSTIC SIGNATURE: Dara Butler Jr., DO PATIENT NAME: Chioma Alonzo DATE: September 03, 2024 TIME: 10:18 AM PAGER/CONTACT #: Dimitri [facility] NURSING PROGon 09-03-2024 NURSING PROG HNO ID: [id number] Author: SERA GARNER RN Service: Nursing Author Type: Registered Nurse Type: Nursing Progress Note Filed: 09/03/2024 10:14 Note Text: PRE OP LEARNING ASSESSMENT PROCEDURE/SURGERY: GI PROCEDURES: Colonoscopy READINESS TO LEARN COGNITIVE ABILITY: Alert and oriented MOTIVATION TO LEARN: Eager FAMILY SUPPORT: None - Unavailable/disinterested PATIENT LEARNS BEST BY: Individual Instruction FACTORS AFFECTING LEARNING: None PHYSICAL LIMITATIONS AFFECTING LEARNING: None Pt declined follow up phone. Electronically Signed By: Sera Garner RN In Department: [facility] [place] Normal [facility] Pathology biopsy report Ganga (Tiss)on 09-03-2024 CASE REPORT Normal [facility] Comment on above: Order Comment: Speci men Type: TISSUE SPECIMENOrdering Facility: [facility] Address: [address] [place] [address] Result Comment: Surg [facility] Pathology Report Case: [id number] Authorizing Provider: Dara Butler Jr., Collected: 09/03/2024 10:39 AM Ordering Location: [facility] Endoscopy Received: 09/03/2024 11:57 PM [facility] Pathologist: Ana Ledesma MD Specimen: Colon, Biopsy, random colon, r/o microscopic colitis Performed By: #### 6 6121-5 ####[facility] LABCLIA [id number] [address] LABCLIA [id number] [address] FINAL DIAGNOSIS Normal [facility] Comment on above: Order Comment: Speci men Type: TISSUE SPECIMENOrdering Facility: [facility] Address: [address] [place] [address] Result Comment: Matheus trammell, biopsy: - Colonic mucosa with no diagnostic abnormalities. at 1426 EST Performed By: #### 6 6121-5 ####[facility] LABCLIA [id number] [address] LABCLIA [id number] [address] [place] FINAL PERFORMING LAB Normal [facility] Comment on above: Order Comment: Speci men Type: TISSUE SPECIMENOrdering Facility: [facility] Address: [address] [place] [address] Result Comment: Diag nostic interpretation performed at: [facility], [address] [place] [address] CLIA# [id number] Certified Executive Chef: Mike Vasques MD Performed By: #### 6 6121-5 ####[facility] LABCLIA [id number] [address] LABCLIA [id number] [address] GROSS DESCRIPTION Normal [facility] Comment on above: Order Comment: Speci men Type: TISSUE SPECIMENOrdering Facility: [facility] Address: [address] [place] [address] Result Comment: Matheus trammell, Biopsy Received in formalin are multiple pieces of cano-brown, soft tissue aggregating to 1.8 x 0.3 x 0.2 cm. Totally submitted in one cassette. DL September 04, 2024 3:07 AM [place] [address] Performed By: #### 6 6121-5 ####[facility] LABCLIA [id number] [address] LABCLIA [id number] [address] Office Visiton 07-28-2024 Follow-up visit [id number] Chioma Alonzo 2000 F Date Provider Department Center 07/28/2024 PAULA BASILIO [facility] No family history on file Level of Service:46318 [place] OFFICE/OUTPATIENT ESTABLISHED LOW MDM 20 MIN (GC) Reason for Visit and Comments: Follow-up [920312] - Recurrent C Diff Nausea [70] Diarrhea [35] Constipation [059141] [facility] 36on 07-25-2024 36 Follow-up message se nt to patient via [employer]. Normal [facility] 36on 07-24-2024 36 Patient LVM, hx of C Diff, reports she has a UTI and wants to know if Dificid is recommended to be taken along with her UTI atb? Please advise. Normal [facility] Laboratory - Chemistry and C hemistry - challengeon 07-24-2024 Bilirubin Ql (U) Negative [facility] Glucose (U) [Mass/Vol] Negative [facility] Ketones Ql (U) Negative [facility] pH (U) 6.0 [pH] [facility] Specific gravity (U) [Rel density] 1.020 [facility] Urobilinogen (U) [Mass/Vol] 0.2 mg/dL [facility] Laboratory - Specimen inform ationon 07-24-2024 Appearance (U) cloudy [facility] Color (U) Yellow [facility] Laboratory - Urinalysison Leukocyte esterase Test strip Ql (U) Negative [facility] Nitrite Ql (U) Negative [facility] Protein Ql (U) Negative [facility] No Panel Informationon 07-24 Urine Occult Blood Negative [facility] Telephoneon 07-24-2024 Telephone [id number] Chioma Alonzo 2000 F Date Provider Department Center 07/24/2024 [id number] PIMENTEL [facility] No family history on file Normal [facility] Urine Cultureon 07-24-2024 Bacteria identified Cx Nom (U) 15,000 colonies/ml mixed bacterial skin contaminants 2 Days PERFORMED BY: [place] [address] PATHOLOGIST MATHEMATICAL TECHNICIAN DEANNE CABELLO M.D. Normal [facility] Comment on above: Performed By: #### C UU #### [facility] [address] 25([place])D3 [facility] 25-hydroxyvitamin D3 [Mass/Vol] 39.8 ng/mL Normal 31.0-80.0 [facility] Comment on above: Order Comment: Speci men Type: BLOOD SPECIMEN Ordering Facility: [facility] Address: [address] [place] [address] Result Comment: Clas sification of 25 [place] Vitamin D status: Deficiency/Insufficiency: < or = 30 ng/ml. Sufficiency/Optimal Levels: 31-80 ng/mL Toxicity: > 100 ng/mL. Test performed by chemiluminescent immunoassay. Performed By: #### 1 989-3 #### [facility] CLIA [id number] [address] [id number] [place] [facility] CNOVon 07-15-2024 CNOV Office Visit (GILA ) ----- CHIOMA ALONZO ([id number]) 2000 F Date Time Provider Department 07/15/24 7:40 AM NAE IBARRA During your visit today, we recorded the following information about you: Pulse Blood pressure Weight 80/minute 99/61 52.2 kg Nae Ibarra MD 07/15/2024 7:36 AM Signed May apply over the counter arthritis creams and or patches (biofreeze, icy hot, asper cream, tiger balm, capsacin, lidocaine, salon pas, voltaren gel, etc.) or over the counter pain patches to painful joints up to four times a day. Avoid contact with eyes. May take Extra Strength acetaminophen 500mg every 4-6hours for joint pain. Do not exceed 3000mg /day. Decrease stress Improve sleep May apply heat/ice 20minutes on and off to areas of pain Avoid aggravating triggers If needed, may take Calcium 1200mg daily with food in DIVIDED doses If labs normal, take Vitamin D 4000 International Units daily with food Recommend goal: exercising 30minutes 3-5 times a week Recommend weight-bearing aerobic exercises such as walking, dancing, low impact aerobics, elliptical machine, stair climbing, gardening flexibility exercises and strength training exercises Recommend avoiding high impact exercises such as jumping, running or jogging or movements where you bend forward and twist the waist, for instance- touching your toes, sit-ups, using row machine termite control representative pain recommendations per primary care provider/pain clinic Nonfasting labs as scheduled Thank you. Latest Ref Rng 12/27/2023 WBC 3.70 - 11.00 k/uL 5.17 RBC 3.90 - 5.20 m/uL 4.48 Hemoglobin 11.5 - 15.5 g/dL 14.1 Hematocrit 36.0 - 46.0 % 41.5 MCV 80.0 - 100.0 fL 92.6 MCH 26.0 - 34.0 pg 31.5 MCHC 30.5 - 36.0 g/dL 34.0 RDW-CV 11.5 - 15.0 % 11.6 Platelet Count 150 - 400 k/uL 179 MPV 9.0 - 12.7 fL 10.5 Neut% % 46.8 Abs Neut (ANC) 1.45 - 7.50 k/uL 2.42 Lymph% % 39.8 Abs Lymph 1.00 - 4.00 k/uL 2.06 Butts% % 8.1 Abs Butts <0.87 k/uL 0.42 Eosin% % 4.3 Abs Eosin <0.46 k/uL 0.22 Baso% % 0.8 Abs Baso <0.11 k/uL 0.04 Immature Gran % % 0.2 IMMATURE GRANS (ABS) <0.10 k/uL <0.03 NRBC /100 WBC 0.0 Absolute nRBC <0.01 k/uL <0.01 DTYPE Auto Protein, Total 6.3 - 8.0 g/dL 7.2 Albumin 3.9 - 4.9 g/dL 4.6 Calcium 8.5 - 10.2 mg/dL 10.2 Bilirubin, Total 0.2 - 1.3 mg/dL 0.5 Alkaline Phosphatase 34 - 123 U/L 53 AST 13 - 35 U/L 14 ALT 7 - 38 U/L 9 Glucose 74 - 99 mg/dL 97 BUN 7 - 21 mg/dL 13 Creatinine 0.58 - 0.96 mg/dL 0.68 Sodium 136 - 144 mmol/L 137 Potassium 3.7 - 5.1 mmol/L 4.3 Chloride 98 - 107 mmol/L 103 CO2 22 - 30 mmol/L 28 Anion Gap 8 - 15 mmol/L 6 (L) eGFR >=60 mL/min/1.73m? 124 CRP <0.9 mg/dL <0.3 Amylase 30 - 104 U/L 44 Lipase 16 - 61 U/L 22 WSR 0 - 20 mm/hr 12 03/16/23 borderline cholesterol 202;normal rest of cbc, cmp, crp <0.3, esr 2, vitamin D 32.5, lipase 20, amylase 43;negatvei celic, IGG subclasses;negative irena; 12/08/22 low vitamin D 24.5;normal cbc, cmp, esr 2, crp<0.3, uric acid 3.5, vitamin b12-594;negative rf<10, ccp<15, irena ifa, hepatitis panel, quantiferon tb; Nae Ibarra MD 07/15/2024 8:58 AM Signed Face to face follow up for fatigue/low vitamin D. Today's visit 07/15/24:taking lexapro, gabapentin, zofran, mvi. NO extra vitamin D.NO recent oral steroids. stable eye exam. Occasional skin changes and hairloss. Tired. Lots of +C.diff infections, had two fecal transplants and may have more treatments since recent test abnormal. 08/27/24 due for celiac block from pain clinic 04/30/24 saw pain clinic for right sided abd pain 04/16/24 pathTransitional mucosa with chemical gastritis (nonsteroidal anti-inflammatory drugs, bile reflux, etc.) 03/24/24 in ED 03/19/24 seen for anxiety 02/26/24 saw GI for epigastric pain 12/27/23 normal cbc, cmp, esr 12, crp <0.3;negative lipase 22, amylase 44; 11/21/23 s/p cholesterol A. Gallbladder, cholecystectomy: -Gallbladder with no diagnostic abnormality. 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 NO swelling. Chronic current pain in neck upper back. More pain since off nsaids. Mild response with tylenol, misses motrin 00mg.Reports pain 5/10. Has minimal AM stiffness. Feels safe at home. Has enough food, supplies and medications. Overall mildly uncomfortable but happy with rheum care. No falls/fx/trauma/illness/o ral sores/rash/hairloss/jaw pain/dysphagia/epistaxis/ hemoptysis since last visit. No adverse effects with meds. No other complaints. Patient denies fever, chills, cp, dyspnea, nausea, vomiting, night sweats, scalp tenderness, visual changes (more content not included)... Normal [facility] CNPNon 07-15-2024 CNPN Telephone (ZonesULN) ----- CHIOMA ALONZO ([id number]) 2000 F Date Time Provider Department 07/15/24 NAE IBARRA During your visit today, we recorded the following information about you: Nae Ibarra MD 07/15/2024 6:42 PM Signed Please Call patient if MyChart note not read to review results/released to My Chart if tests completed at [facility]: normal labs. Take over the counter vitamin D 5529-7434 International Units daily with food. Happy to further review and discuss at follow up visit. Thank you. 07/15/24 normal vitamin D 39.8, vitamin b12-841; Ham Thompson LPN 07/17/2024 10:41 AM Signed Left message that below message viewable on patient's MC. Requested return call if unable to view message. Allergies As of Date: 07/15/2024 Noted Allergy Reaction METRONIDAZOLE 09/07/2020 1 - Mental Status Change 6 - Diarrhea 8 - GI Upset 4 - Hives 14 - Other: See Comments 2 - Rash 12 - Shortness of Breath 16 - Unknown 11 - Vomiting Date Reviewed: 07/15/2024 Reviewed by: Nae Ibarra MD - Fully Assessed Reason for Visit: Results [95] Prescriptions as of 07/17/2024 - vancomycin (VANCOCIN) 125 mg capsule Take 1 capsule by mouth three times a day for 10 days. - gabapentin (NEURONTIN) 100 mg capsule take 1 tab PO qHS x 3 days, then take 1 tab PO BID x 3 days, then take 2 tabs PO BID if tolerated. - escitalopram oxalate (LEXAPRO) 10 mg tablet Take 5 mg by mouth once daily. - ondansetron (ZOFRAN) 4 mg tablet Take 4 mg by mouth as needed. 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] 11/15/2023 Palpitations [R00.2] 11/15/2023 Upper back pain [M54.9] 07/15/2024 Long-term use of high-risk medication [Z79.899] 07/15/2024 Encounter Status:Closed by HAM THOMPSON on 07/17/24 Normal [facility] Cobalamin (Vitamin B12) [Mas s/Vol]on 07-15-2024 Interpretation and review of laboratory results Normal [facility] Laboratory - Chemistry and C hemistry - challengeon 07-15-2024 Cobalamin (Vitamin B12) [Mass/Vol] 841 pg/mL 232-1245 [facility] Serum or plasma calcidiol me asurement (mass/volume)on 07-15-2024 25-hydroxyvitamin D3 [Mass/Vol] Serum or plasma calcidiol measurement (mass/volume) 31.0-80.0 [facility] Comment on above: Classification of 25 [place] Vitamin D status: Deficiency/Insufficiency: < or = 30 ng/ml.Sufficiency/Optimal Levels: 31-80 ng/mLToxicity: > 100 ng/mL. Test performed by chemiluminescent immunoassay. VITAMIN B12on 07-15-2024 Cobalamin (Vitamin B12) [Mass/Vol] 841 pg/mL 232 - 1245 pg/mL [facility] Vit B12 SerPl-mCncon 024 Cobalamin (Vitamin B12) [Mass/Vol] 841 pg/mL Normal 232-1245 [facility] Comment on above: Order Comment: Speci men Type: BLOOD SPECIMEN [facility] [address] [facility] [place] [address] Performed By: #### 2 132-9 #### [facility] CLIA [id number] [place] [address] [place] Basophils Auto (Bld) [#/Vol] on 07-11-2024 Basophils (Bld) [#/Vol] Automated basophil count 0.0-0.1 [facility] Basophils/100 WBC Auto (Bld) on 07-11-2024 Basophils/100 WBC (Bld) Automated basophil % 0.2-2.0 [facility] Eosinophils/100 WBC Auto (Bl d)on 07-11-2024 Eosinophils/100 WBC (Bld) Automated eosinophil % 0.9-7.0 [facility] Erythrocyte distribution wid th Auto (RBC) [Ratio]on 07-11-2024 Erythrocyte distribution width (RBC) [Ratio] Erythrocyte distribution width [Ratio] by Automated count 11.0-15.0 [facility] Estimated glomerular filtrat ion rate (GFR) non- Americanon 07-11-2024 GFR/1.73 sq M.predicted among non-blacks MDRD (S/P/Bld) [Vol rate/Area] Estimated glomerular filtration rate (GFR) non- >=60 mL/min/1.73 m 2 [facility] Globulin Calc (S) [Mass/Vol] on 07-11-2024 Globulin (S) [Mass/Vol] Serum globulin measurement by calculation (mass/volume) [facility] HCG ( test) Ivis d Ql (U)on 07-11-2024 HCG ( test) Ql (U) Urine human chorionic gonadotropin (hCG) detection by immunoassay NEGATIVE [facility] Hematocrit Auto (Bld) [Volum e fraction]on 07-11-2024 Hematocrit (Bld) [Volume fraction] Hematocrit [Volume Fraction] of Blood by Automated count 36.0-48.0 [facility] Hemoglobin [Mass/volume] in Bloodon 07-11-2024 Hemoglobin (Bld) [Mass/Vol] Hemoglobin [Mass/volume] in Blood 12.0-16.0 [facility] [facility] - Chemistry and C hemistry - challengeon 07-11-2024 Albumin [Mass/Vol] 4.4 g/dL 3.4-5.0 [facility] ALP [Catalytic activity/Vol] 52 U/L 46-116 [facility] ALT [Catalytic activity/Vol] 16 U/L 14-59 [facility] AST [Catalytic activity/Vol] 18 U/L 15-37 [facility] Bilirubin [Mass/Vol] 0.9 mg/dL 0.2-1.0 [facility] Calcium [Mass/Vol] 9.4 mg/dL 8.5-10.1 [facility] Chloride [Moles/Vol] 103 mmol/L 98-107 [facility] CO2 [Moles/Vol] 26.9 mmol/L 21.0-32.0 [facility] Creatinine [Mass/Vol] 0.80 mg/dL 0.55-1.02 [facility] GFR/1.73 sq M.predicted MDRD (S/P/Bld) [Vol rate/Area] mL/min/{1.73_m2} >=60 mL/min/1.73 m 2 [facility] Glucose [Mass/Vol] 97 mg/dL 74-106 [facility] Lipase [Catalytic activity/Vol] 25.0 U/L 16.0-77.0 [facility] Potassium [Moles/Vol] 3.8 mmol/L 3.5-5.1 [facility] Protein [Mass/Vol] 7.9 g/dL 6.4-8.2 [facility] Sodium [Moles/Vol] 140 mmol/L 136-145 [facility] Urea nitrogen [Mass/Vol] 9.0 mg/dL 7.0-18.0 [facility] Urea nitrogen/Creatinine [Mass ratio] 11.2 mg/mg [facility] Bilirubin Ql (U) Negative NEGATIVE [facility] Glucose (U) [Mass/Vol] Negative NEGATIVE [facility] Ketones Ql (U) TRACE mg/dL Abnormal NEGATIVE [facility] pH (U) 6.0 [pH] 5.0-9.0 [facility] Specific gravity (U) [Rel density] 1.025 1.005-1.025 [facility] Urobilinogen Qn (U) 0.2 {Trini'U}/dL 0.2-1.0 [facility] Laboratory - Hematology and Cell countson 07-11-2024 Immature granulocytes/100 WBC (Bld) 0.2 % 0.0-0.5 [facility] Laboratory - Specimen inform ationon 07-11-2024 Appearance (U) CLEAR CLEAR [facility] Color (U) LT. YELLOW YELLOW [facility] Laboratory - Urinalysison Leukocyte esterase Test strip Ql (U) Negative NEGATIVE [facility] Nitrite Ql (U) Negative NEGATIVE [facility] Protein Ql (U) TRACE mg/dL NEG/TRACE [facility] Leukocytes [#/volume] correc shena for nucleated erythrocytes in Blood by Automated counon 07-11-2024 WBC corrected for nucl RBC Auto (Bld) [#/Vol] Leukocytes [#/volume] corrected for nucleated erythrocytes in Blood by Automated coun 4.0-11.0 [facility] Lymphocytes Auto (Bld) [#/Vo l]on 07-11-2024 Lymphocytes (Bld) [#/Vol] Lymphocytes [#/volume] in Blood by Automated count 1.2-3.8 [facility] Lymphocytes/100 WBC Auto (Bl d)on 07-11-2024 Lymphocytes/100 WBC (Bld) Lymphocytes/100 leukocytes in Blood by Automated count 20.5-60.0 [facility] MCH Auto (RBC) [Entitic mass ]on 07-11-2024 MCH (RBC) [Entitic mass] MCH [Entitic mass] by Automated count 26.7-34.0 [facility] MCHC Auto (RBC) [Mass/Vol]on 07-11-2024 MCHC (RBC) [Mass/Vol] MCHC [Mass/volume] by Automated count 29.9-35.2 [facility] MCV Auto (RBC) [Entitic vol] on 07-11-2024 MCV (RBC) [Entitic vol] MCV [Entitic volume] by Automated count 81.0-99.0 [facility] Monocytes Auto (Bld) [#/Vol] on 07-11-2024 Monocytes (Bld) [#/Vol] Automated blood monocyte count 0.3-0.8 [facility] Monocytes/100 WBC Auto (Bld) on 07-11-2024 Monocytes/100 WBC (Bld) Automated monocyte % 1.7-12.0 [facility] Neutrophils Auto (Bld) [#/Vo l]on 07-11-2024 Neutrophils (Bld) [#/Vol] Neutrophils [#/volume] in Blood by Automated count 1.4-6.5 [facility] Neutrophils/100 WBC Auto (Bl d)on 07-11-2024 Neutrophils/100 WBC (Bld) Automated neutrophil % Low 43.0-75.0 [facility] No Panel Informationon 07-11 Eosinophils # (Auto) 0.3 10 3/uL 0.0-0.7 [facility] Immature Granulocyte # (Auto) 0.01 10 3/uL 0.00-0.03 [facility] Urine Microscopic Review NO [facility] Urine Occult Blood Negative NEGATIVE [facility] Platelet mean volume Auto (B ld) [Entitic vol]on 07-11-2024 Platelet mean volume (Bld) [Entitic vol] Platelet mean volume [Entitic volume] in Blood by Automated count 9.5-13.5 [facility] Platelets Auto (Bld) [#/Vol] on 07-11-2024 Platelets (Bld) [#/Vol] Platelets [#/volume] in Blood by Automated count 150-450 [facility] RBC Auto (Bld) [#/Vol]on RBC (Bld) [#/Vol] Erythrocytes [#/volu me] in Blood by Automated count 4.20-5.40 [facility] Serum or plasma albumin/glob ulin mass ratioon 07-11-2024 Albumin/Globulin [Mass ratio] Serum or plasma albumin/globulin mass ratio [facility] Serum or plasma anion gap de terminationon 07-11-2024 Anion gap [Moles/Vol] Serum or plasma an ion gap determination [facility] No Panel Informationon 07-09 Clostridium difficile (PCR)(LAB) Positive [facility] Comment on above: RESULTS CALLED TO NANI OLGUIN AT OFFICE BY Allyssa Valdes at 1352 Miscellaneous Test COMMENT . [facility] Comment on above: Test Ordered: [id number] C difficile Toxins A+B, EIAC difficile Toxins A+B, EIA Negative CB Reference Range: NegativePerformed at: CB - [facility] [address] [id number] Director: Kai Schuster PhD, Phone: [phone] No Panel Informationon 07-08 Human Chorionic Gonadotropin, Quant <1 mIU/mL [facility] Comment on above: 5-50 0.2-1 NVLT73-56 0 1-2 QTKVP574-6,000 2-3 FXFBN370-02,000 3-4 WEEKS1,000-50,000 4-5 WEEKS10,000-100,000 5-6 WEEKS15,000-200,000 6-8 WEEKS10,000-100,000 2-3 MONTHS [facility] PREG QUANT HCGon 024 HCG QUANTITATIVE <1 mIU/mL [facility] Comment on above: 5-50 0.2-1 WEEK 50-500 1-2 WEEKS 100-5,000 2-3 WEEKS 500-10,000 3-4 WEEKS 1,000-50,000 4-5 WEEKS 10,000-100,000 5-6 WEEKS 15,000-200,000 6-8 WEEKS 10,000-100,000 2-3 MONTHS [facility] CNPNon 07-03-2024 CNPN Telephone ([facility]) ----- CHIOMA ALONZO Roland ([id number]) 2000 F Date Time Provider Department 07/03/24 NELSON THOMPSON [facility] During your visit today, we recorded the following information about you: Kelly Oropezain 07/03/2024 9:27 AM Addendum BLOCK CELIAC PLEXUS WITH C-ARM needs rescheduled. Please reach out to her to reschedule this. Shu Wilkins 07/07/2024 2:25 PM Signed BLOCK CELIAC PLEXUS WITH C-ARM SHIVAM ALONZOBY [id number] DESMOND HUFFMAN 07/21 -THINNERS -DM Patient was made aware that the ASC will call the day prior to scheduled procedure between the hours of 12 and 4 pm to advise patient of arrival time the day of procedure. 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 Huffman from 07/04 to 07/21 in [place] per patient request. Shu Wilkins 07/08/2024 9:12 [...] Reason for Visit: Appointment [186] Schedule Injection [8964] Prescriptions as of 07/08/2024 - gabapentin (NEURONTIN) [...] 11/15/2023 Palpitations [R00.2] 11/15/2023 Encounter Status:Closed by JORGE OROPEZA on 07/03/24 Normal [facility] No Panel Informationon 07-01 Type of [...] yes Amount of lidocaine used: 0.4 cc [facility] No Panel InformationOrdered By: Kayla Griffith on 07-01-2024 [facility] No Panel Informationon 06-30 Human Chorionic Gonadotropin, Quant 8 mIU/mL [facility] Comment on above: 5-50 0.2-1 XIVE30-31 0 1-2 CHVBG734-2,000 2-3 PDJML303-33,000 3-4 WEEKS1,000-50,000 4-5 WEEKS10,000-100,000 5-6 WEEKS15,000-200,000 6-8 WEEKS10,000-100,000 2-3 MONTHS Basophils Auto (Bld) [#/Vol] on 06-25-2024 Basophils (Bld) [#/Vol] Automated basophil count 0.0-0.1 [facility] Basophils/100 WBC Auto (Bld) on 06-25-2024 Basophils/100 WBC (Bld) Automated basophil % 0.2-2.0 [facility] Eosinophils/100 WBC Auto (Bl d)on 06-25-2024 Eosinophils/100 WBC (Bld) Automated eosinophil % 0.9-7.0 [facility] Erythrocyte distribution wid th Auto (RBC) [Ratio]on 06-25-2024 Erythrocyte distribution width (RBC) [Ratio] Erythrocyte distribution width [Ratio] by Automated count 11.0-15.0 [facility] Estimated glomerular filtrat ion rate (GFR) non- Americanon 06-25-2024 GFR/1.73 sq M.predicted among non-blacks MDRD (S/P/Bld) [Vol rate/Area] Estimated glomerular filtration rate (GFR) non- >=60 mL/min/1.73 m 2 [facility] Globulin Calc (S) [Mass/Vol] on 06-25-2024 Globulin (S) [Mass/Vol] Serum globulin measurement by calculation (mass/volume) [facility] Hematocrit Auto (Bld) [Volum e fraction]on 12-04-2024 Hematocrit (Bld) [Volume fraction] Hematocrit [Volume Fraction] of Blood by Automated count 36.0-48.0 [facility] Hemoglobin [Mass/volume] in Bloodon 06-25-2024 Hemoglobin (Bld) [Mass/Vol] Hemoglobin [Mass/volume] in Blood 12.0-16.0 [facility] Laboratory - Chemistry and C hemistry - challengeon 06-25-2024 Albumin [Mass/Vol] 4.1 g/dL 3.4-5.0 [facility] ALP [Catalytic activity/Vol] 50 U/L 46-116 [facility] ALT [Catalytic activity/Vol] 14 U/L 14-59 [facility] AST [Catalytic activity/Vol] 10 U/L Low 15-37 [facility] Bilirubin [Mass/Vol] 1.1 mg/dL High 0.2-1.0 [facility] Calcium [Mass/Vol] 9.3 mg/dL 8.5-10.1 [facility] Chloride [Moles/Vol] 105 mmol/L 98-107 [facility] CO2 [Moles/Vol] 24.5 mmol/L 21.0-32.0 [facility] Creatinine [Mass/Vol] 0.73 mg/dL 0.55-1.02 [facility] GFR/1.73 sq M.predicted MDRD (S/P/Bld) [Vol rate/Area] mL/min/{1.73_m2} >=60 mL/min/1.73 m 2 [facility] Glucose [Mass/Vol] 103 mg/dL 74-106 [facility] Potassium [Moles/Vol] 4.1 mmol/L 3.5-5.1 [facility] Protein [Mass/Vol] 7.3 g/dL 6.4-8.2 [facility] Sodium [Moles/Vol] 139 mmol/L 136-145 [facility] Urea nitrogen [Mass/Vol] 12.0 mg/dL 7.0-18.0 [facility] Urea nitrogen/Creatinine [Mass ratio] 16.4 mg/mg [facility] Bilirubin Ql (U) Negative NEGATIVE [facility] Glucose (U) [Mass/Vol] Negative NEGATIVE [facility] Ketones Ql (U) 15 mg/dL Abnormal NEGATIVE [facility] pH (U) 5.5 [pH] 5.0-9.0 [facility] Specific gravity (U) [Rel density] >=1.030 Abnormal 1.005-1.025 [facility] Urobilinogen Qn (U) 0.2 {Trini'U}/dL 0.2-1.0 [facility] Laboratory - Hematology and Cell countson 06-25-2024 Immature granulocytes/100 WBC (Bld) 0.3 % 0.0-0.5 [facility] Laboratory - Specimen inform ationon 06-25-2024 Appearance (U) CLEAR CLEAR [facility] Color (U) YELLOW YELLOW [facility] Laboratory - Urinalysison Leukocyte esterase Test strip Ql (U) Negative NEGATIVE [facility] Mucus Ql (Urine sed) MODERATE Abnormal NONE SEEN [facility] Nitrite Ql (U) Negative NEGATIVE [facility] Protein Ql (U) 30 mg/dL Abnormal NEG/TRACE [facility] Leukocytes [#/volume] correc shena for nucleated erythrocytes in Blood by Automated counon 06-25-2024 WBC corrected for nucl RBC Auto (Bld) [#/Vol] Leukocytes [#/volume] corrected for nucleated erythrocytes in Blood by Automated coun 4.0-11.0 [facility] Lymphocytes Auto (Bld) [#/Vo l]on 06-25-2024 Lymphocytes (Bld) [#/Vol] Lymphocytes [#/volume] in Blood by Automated count 1.2-3.8 [facility] Lymphocytes/100 WBC Auto (Bl d)on 06-25-2024 Lymphocytes/100 WBC (Bld) Lymphocytes/100 leukocytes in Blood by Automated count Low 20.5-60.0 [facility] MCH Auto (RBC) [Entitic mass ]on 06-25-2024 MCH (RBC) [Entitic mass] MCH [Entitic mass] by Automated count 26.7-34.0 [facility] MCHC Auto (RBC) [Mass/Vol]on 06-25-2024 MCHC (RBC) [Mass/Vol] MCHC [Mass/volume] by Automated count 29.9-35.2 [facility] MCV Auto (RBC) [Entitic vol] on 06-25-2024 MCV (RBC) [Entitic vol] MCV [Entitic volume] by Automated count 81.0-99.0 [facility] Monocytes Auto (Bld) [#/Vol] on 06-25-2024 Monocytes (Bld) [#/Vol] Automated blood monocyte count 0.3-0.8 [facility] Monocytes/100 WBC Auto (Bld) on 06-25-2024 Monocytes/100 WBC (Bld) Automated monocyte % 1.7-12.0 [facility] Neutrophils Auto (Bld) [#/Vo l]on 06-25-2024 Neutrophils (Bld) [#/Vol] Neutrophils [#/volume] in Blood by Automated count 1.4-6.5 [facility] Neutrophils/100 WBC Auto (Bl d)on 06-25-2024 Neutrophils/100 WBC (Bld) Automated neutrophil % 43.0-75.0 [facility] No Panel Informationon 06-25 Eosinophils # (Auto) 0.2 10 3/uL 0.0-0.7 [facility] Human Chorionic Gonadotropin, Quant 32 mIU/mL [facility] Comment on above: 5-50 0.2-1 JXXC16-38 0 1-2 CFCDJ579-7,000 2-3 DWEXY055-25,000 3-4 WEEKS1,000-50,000 4-5 WEEKS10,000-100,000 5-6 WEEKS15,000-200,000 6-8 WEEKS10,000-100,000 2-3 MONTHS Immature Granulocyte # (Auto) 0.02 10 3/uL 0.00-0.03 [facility] Urine Bacteria TRACE #/HPF Abnormal NONE SEEN [facility] Urine Culture Reflexed NO [facility] Urine Microscopic Review YES [facility] Urine Occult Blood Negative NEGATIVE [facility] Urine RBC NONE SEEN #/HPF 0-2 [facility] Urine Squamous Epithelial Cells MODERATE #/LPF Abnormal NONE/RARE [facility] Urine WBC NONE SEEN #/HPF NONE SEEN [facility] Platelet mean volume Auto (B ld) [Entitic vol]on 06-25-2024 Platelet mean volume (Bld) [Entitic vol] Platelet mean volume [Entitic volume] in Blood by Automated count 9.5-13.5 [facility] Platelets Auto (Bld) [#/Vol] on 06-25-2024 Platelets (Bld) [#/Vol] Platelets [#/volume] in Blood by Automated count 150-450 [facility] RBC Auto (Bld) [#/Vol]on RBC (Bld) [#/Vol] Erythrocytes [#/volu me] in Blood by Automated count 4.20-5.40 [facility] Serum or plasma albumin/glob ulin mass ratioon 06-25-2024 Albumin/Globulin [Mass ratio] Serum or plasma albumin/globulin mass ratio [facility] Serum or plasma anion gap de terminationon 06-25-2024 Anion gap [Moles/Vol] Serum or plasma an ion gap determination [facility] CNPNon 06-23-2024 CNPN Telephone ([facility]) ----- CHIOMA ALONZO ([id number]) 2000 F Date Time Provider Department 06/23/24 THO HUFFMAN INWVYOU During your visit today, we recorded the [...] Encounter Status:Closed by BONNY JOYNER on [facility]/23/24 [facility] Telephone (ZACH) ----- CHIOMA ALONZO ([id number]) 2000 F Date Time Provider Department 05/14/24 NELSON, NELSON W ORLORA During your visit today, we recorded the [...] Encounter Status:Closed by SHU WILKINS on 05/14/24 [facility] Telephone (ORLORA) ----- CHIOMA ALONZO ([id number]) 2000 F Date Time Provider Department 05/14/24 THO HUFFMAN During your visit today, we recorded the following information about you: WilkinsShu 05/14/2024 1:48 PM Signed diagnostic celiac plexus blockade CHIOMA ALONZO [id number] BHARATHI 07/04 -THINNERS -DM Patient was made aware that the ASC will call the day prior to scheduled procedure between the hours of 12 and 4 pm to advise patient of arrival time the day of procedure. 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 CNOVon 04-30-2024 CNOV Office Visit ([facility] ) ----- CHIOMA ALONZO ([id number]) 2000 F Date Time Provider Department 04/30/24 11:00 AM PAULA PRETTY [facility] During your visit today, we recorded the following information about you: Pulse Respiration Blood pressure Weight 86/minute 18/minute 108/74 49.9 kg Height 1.626 m Paula Pretty MD 05/13/2024 6:15 PM Addendum Referring [...] No d (more content not included)... Normal [facility] CNPNon 04-24-2024 CNPN Telephone (GASTLEONARD) ----- CINDYCHIOMA Newberry Roland ([id number]) 2000 F Date Time Provider Department 04/24/24 [...] Status:Closed by GISELA PONCE on 04/24/24 Normal [facility] EGD Study observation Narrat ronal 04-16-2024 Table formatting fro m the original [...] Ambriz MD MPH 04/16/2024 1016 Procedure Location [facility] [id number] [place] [id number] Referring Provider Whitney Ambriz MD MPH Procedure Provider Whitney Ambriz MD MPH [facility] Work Phone: Radiology Study observation (narrative) [facility] Work Phone: EGD Study observation Narrat iveOrdered By: Whitney Ambriz on 04-16-2024 [facility] Work Phone: HCG ( test) Ql (U)o n 04-16-2024 Interpretation and review of laboratory results Normal [facility] Work Phone: Preg Test, Ur Negative Negative [facility] Work Phone: [facility] Work Phone: CNOVon 03-26-2024 CNOV Office Visit ([facility] ) ----- CHIOMA ALONZO ([id number]) 2000 F Date Time Provider Department 03/26/24 11:00 AM PAULA PRETTY [facility] During your visit today, we recorded the following information about you: Pulse Respiration Blood pressure Weight 81/minute 16/minute 110/67 49.9 kg Height 1.626 m Paula Pretty MD 03/26/2024 12:27 PM Signed power outage in building appt rescheduled Paula Pretty MD Allergies As of Date: 03/26/2024 [...] 11/15/2023 Palpitations [R00.2] 11/15/2023 Encounter Status:Closed by PAULA PRETTY on 03/26/24 Normal [facility] No Panel Informationon 03-16 [facility] C diff Tox gens Stl Ql RUCHI+p robeon 03-13-2024 C. difficile toxin genes RUCHI+probe Ql (Stl) Negative Normal Negative for C. difficile toxin by PCR [facility] Comment on above: Order Comment: Speci men Type: STOOL SPECIMENOrdering Facility: [facility] Address: [address] [place] [address] Performed By: #### 5 [id number] ####[facility] LABCLIA [id number] [place] [address] [place] C. DIFFICILE PCRon C. difficile toxin genes RUCHI+probe Ql (Stl) Negative Negative for C. difficile toxin by PCR [facility] C. difficile toxin genes RUCHI +probe Ql (Stl)on 03-13-2024 Interpretation and review of laboratory results Normal [facility] CNOVon 02-26-2024 CNOV Office Visit (GGENMN ) ----- CHIOMA ALONZO ([id number]) 2000 F Date Time Provider Department 02/26/24 [...] PM Signed New Patient/Consult REASON FOR VISIT Chioma Alonzo is a 23 year old female [...] date: COLONOSCOPY (more content not included)... Normal [facility] Gastrointestinal tract up per Views W barium contrast Aime 02-11-2024 IMPRESSION: Mild gastroesophageal reflux and mild esophageal dysmotility. Otherwise, unremarkable upper GI series. Warehouse Stocker: FRANCISCO Transcribe Date/Time: Feb 11 2024 11:34A Dictated by : ANJALI HALEY MD This examination was interpreted and the report reviewed and electronically signed by: ANJALI HALEY MD on Feb 11 2024 4:03PM EST [facility] * * *Final Report* * * [...] somewhat limited assessment of the gastric cardia/fundus. [facility] Provider, Letty preciado [place] - 02/11/2024 * * *Final Report* * [...] esophageal dysmotility. Otherwise, unremarkable upper GI series. Warehouse Stocker: FRANCISCO Transcribe Date/Time: Feb 11 2024 11:34A Dictated by : ANJALI HALEY MD This examination was interpreted and the report reviewed and electronically signed by: ANJALI HALEY MD on Feb 11 2024 4:03PM EST [facility] Radiology Study observation (narrative) [facility] RF Gastrointestinal tract up per Views W barium contrast POOrdered By: Ccf Provider on 02-11-2024 [facility] XR UPPER GI SINGLE CONTRASTo n 02-11-2024 [...] esophageal dysmotility. Otherwise, unremarkable upper GI series. Warehouse Stocker: [facility] Transcribe Date/Time: Feb 11 2024 11:34A Dictated by : ANJALI HALEY MD This examination was interpreted and the report reviewed and electronically signed by: ANJALI HALEY MD on Feb 11 2024 4:03PM EST [id number] Normal [facility] GASTRIC EMPTYING SOLIDon 01-30-2024 [place] GASTRIC EMPTYING SOLID * * *Final Report* * * DATE OF EXAM: Jan 30 2024 1:51PM N 0017 - [place] GASTRIC EMPTYING SOLID / PROCEDURE REASON: multiple [...] which lowers the sensitivity of the study. Warehouse Stocker[facility] Transcribe Date/Time: Jan 30 2024 2:09P Dictated by : JOSELUIS MORA MD This examination was interpreted and the report reviewed and electronically signed by: JOSELUIS MORA MD on Jan 30 2024 2:10PM EST [id number] Normal [facility] Stomach Views for gastric emptying solid phase W radionuclide Aime 01-30-2024 IMPRESSION: Normal rate of gastric emptying of a solid meal. However patient consumed less than the standard meal, which lowers the sensitivity of the study. Warehouse Stocker: FRANCISCO Transcribe Date/Time: Jan 30 2024 2:09P Dictated by : JOSELUIS MORA MD This examination was interpreted and the report reviewed and electronically signed by: JOSELUIS MORA MD on Jan 30 2024 2:10PM EST [facility] * * *Final Report* * * DATE OF EXAM: Jan 30 2024 1:51PM [facility] 0017 - [place] GASTRIC EMPTYING SOLID [...] retention at 4 hours (normal range, 0-10%). [facility] Provider, Zulema Natalya [facility] - 01/30/2024 * * *Final Report* * * DATE OF EXAM: Jan 30 2024 1:51PM [facility] 0017 - [place] GASTRIC EMPTYING SOLID [...] which lowers the sensitivity of the study. Warehouse Stocker: [facility] Transcribe Date/Time: Jan 30 2024 2:09P Dictated by : JOSELUIS MORA MD This examination was interpreted and the report reviewed and electronically signed by: JOSELUIS MORA MD on Jan 30 2024 2:10PM [facility] Study observation (narrative) [facility] Stomach Views for gastric emptying solid phase W radionuclide POOrdered By: Ccf Provider on 01-30-2024 [facility] ----- CHIOMA ALONZO ([id number]) 2000 F Date Time Provider Department 01/29/[address] [facility] During your visit today, we recorded the following information about you: Vitor Harp CNMT 01/29/2024 1:15 PM Signed SPOKE [...] 11/15/2023 Palpitations [R00.2] 11/15/2023 Encounter Status:Closed by VITOR HARP on 01/29/24 [facility] 01-01-2024 L Specimen: [id number] Received: 01/02/24 Status: TRUDY Mosley Num: [id number] Spec Type: Surgical Subm Dr: Ana Bolton DO Tissues: A Appendix - Other than Incidental (APPENDIX) Procedures: HE/2, Gross/Micro L3 Age/ Patient Sex Location Account Attending Physician Chioma Alonzo 23/F [facility] [id number] Ana Bolton DO SPEC NUM: [id number] RECD: 01/02/24 STATUS: TRUDY MOSLEY NUM: [id number] RAQUEL: 01/01/24-[address]: Ana Bolton DO ENTERED: 01/02/24 [facility] [facility]: Sg,Verena SPEC TYPE: Surgical DEPT: AMY LOMAS ORDERED: HE/2, Gross/Micro L3 ORDERED: HE2, Gross/Micro L3 Pathological Diagnosis Appendix, appendectomy: Acute [...] masses or areas of perforation are identified. Health Care Aide sections are submitted in A1 (base and midportion)?A2 (entire distal tip). CPT Codes 60123 Specimen: [id number] Received: 01/02/24 Status: TRUDY Mosley Num: [id number] Spec Type: Surgical Subm Dr: Ana Bolton DO Tissues: A Appendix - Other than Incidental (APPENDIX) Procedures: /2, Gross/Micro L3 Patient: Chioma Alonzo [id number] (Continued) Signed (signature on file) Deanne Cabello MD 01/03/24 1808 Normal [facility] Surgical PathologyOrdered By : Jasmin Hatch on 01-01-2024 [facility] ([facility] ) ----- CHIOMA ALONZO Roland ([id number]) 2000 F Date Time Provider Department 12/28/23 3:00 PM DARA BUTLER JR [facility] During your visit today, we recorded the following information about you: Dara Butler Jr., 12/28/2023 3:30 PM Signed No chief complaint on file. HPI: Chioma Watkins Cindy, 23 year old female, followup for upper [...] an issue, start amitriptyline. Consider referral to [facility] if symptoms fail to improve. [...] OV notes per Dr. Butler as follows Chioma Alonzo, 22 year old female, for followup. [...] last colonoscopy was 8 months ago in [place]. Start amitriptyline Keep appt with Dr. Menon [...] divisum. 12/01/22 HIDA scan was done at [facility]: Normal study EF 69% US: 10/31/22: (care everywhere) Liver normal Gallbaldder appears normal with no stones or sludge. No gallblad (more content not included)... Normal [facility] Amylase SerPl-cCncon 024 Amylase [Catalytic activity/Vol] 44 U/L Normal 30-104 [facility] Comment on above: Order Comment: Speci men Type: BLOOD SPECIMENOrdering Facility: [facility] Address: [address] [place] [address] Performed By: #### 1 798-8, 1987-, 3040- ####[facility] LABCLIA [id number] [place] [address] [place] Basophils Auto (Bld) [#/Vol] on 12-27-2023 Basophils (Bld) [#/Vol] 0.04 10*3/uL <0.11 [facility] Basophils/100 WBC Auto (Bld) on 12-27-2023 Basophils/100 WBC (Bld) 0.8 % [facility] Blood manual differential co mment interpretation narrativeon 12-27-2023 Manual differential comment Ganga (Bld) [Interp] Auto [facility] CBC W Auto Differential pane l (Bld)on 12-27-2023 Basophils (Bld) [#/Vol] 0.04 10*3/uL Normal <0.11 [facility] Comment on above: Order Comment: Speci men Type: BLOOD SPECIMENOrdering Facility: [facility] Address: [address] [place] [address] Performed By: #### 5 7021-8 ####[facility] LABCLIA [id number] [place] [address] Basophils/100 WBC (Bld) 0.8 % Normal [facility] Comment on above: Order Comment: Speci men Type: BLOOD SPECIMENOrdering Facility: [facility] Address: [address] [place] [address] Performed By: #### 5 7021-8 ####[facility] LABCLIA [id number] [place] [address] Differential cell count method Nom (Bld) Auto Normal [facility] Comment on above: Order Comment: Speci men Type: BLOOD SPECIMENOrdering Facility: [facility] Address: [address] [place] [address] Performed By: #### 5 7021-8 ####[facility] LABCLIA [id number] [place] [address] Eosinophils (Bld) [#/Vol] 0.22 10*3/uL Normal <0.46 [facility] Comment on above: Order Comment: Speci men Type: BLOOD SPECIMENOrdering Facility: [facility] Address: [address] [place] [address] Performed By: #### 5 7021-8 ####[facility] LABCLIA [id number] [place] [address] Eosinophils/100 WBC (Bld) 4.3 % Normal [facility] Comment on above: Order Comment: Speci men Type: BLOOD SPECIMENOrdering Facility: [facility] Address: [address] [place] [address] Performed By: #### 5 7021-8 ####[facility] LABCLIA [id number] [place] [address] Erythrocyte distribution width (RBC) [Ratio] 11.6 % Normal 11.5-15.0 [facility] Comment on above: Order Comment: Speci men Type: BLOOD SPECIMENOrdering Facility: [facility] Address: [address] [place] [address] Performed By: #### 5 7021-8 ####[facility] LABCLIA [id number] [place] [address] Hematocrit (Bld) [Volume fraction] 41.5 % Normal 36.0-46.0 [facility] Comment on above: Order Comment: Speci men Type: BLOOD SPECIMENOrdering Facility: [facility] Address: [address] [place] [address] Performed By: #### 5 7021-8 ####[facility] LABCLIA [id number] [place] [address] Hemoglobin (Bld) [Mass/Vol] 14.1 g/dL Normal 11.5-15.5 [facility] Comment on above: Order Comment: Speci men Type: BLOOD SPECIMENOrdering Facility: [facility] Address: [address] [place] [address] Performed By: #### 5 7021-8 ####[facility] LABCLIA [id number] [place] [address] Immature granulocytes (Bld) [#/Vol] 10*3/uL Normal <0.10 [facility] Comment on above: Order Comment: Speci men Type: BLOOD SPECIMENOrdering Facility: [facility] Address: [address] [place] [address] Performed By: #### 5 7021-8 ####[facility] LABCLIA [id number] [place] [address] Immature granulocytes/100 WBC (Bld) 0.2 % Normal [facility] Comment on above: Order Comment: Speci men Type: BLOOD SPECIMENOrdering Facility: [facility] Address: [address] [place] [address] Performed By: #### 5 7021-8 ####[facility] LABCLIA [id number] [place] [address] Lymphocytes (Bld) [#/Vol] 2.06 10*3/uL Normal 1.00-4.00 [facility] Comment on above: Order Comment: Speci men Type: BLOOD SPECIMENOrdering Facility: [facility] Address: [address] [place] [address] Performed By: #### 5 7021-8 ####[facility] LABCLIA [id number] [place] [address] Lymphocytes/100 WBC (Bld) 39.8 % Normal [facility] Comment on above: Order Comment: Speci men Type: BLOOD SPECIMENOrdering Facility: [facility] Address: [address] [place] [address] Performed By: #### 5 7021-8 ####[facility] LABCLIA [id number] [place] [address] MCH (RBC) [Entitic mass] 31.5 pg Normal 26.0-34.0 [facility] Comment on above: Order Comment: Speci men Type: BLOOD SPECIMENOrdering Facility: [facility] Address: [address] [place] [address] Performed By: #### 5 7021-8 ####[facility] LABCLIA [id number] [place] [address] MCHC (RBC) [Mass/Vol] 34.0 g/dL Normal 30.5-36.0 [facility] Comment on above: Order Comment: Speci men Type: BLOOD SPECIMENOrdering Facility: [facility] Address: [address] [place] [address] Performed By: #### 5 7021-8 ####[facility] LABCLIA [id number] [place] [address] MCV (RBC) [Entitic vol] 92.6 fL Normal 80.0-100.0 [facility] Comment on above: Order Comment: Speci men Type: BLOOD SPECIMENOrdering Facility: [facility] Address: [address] [place] [address] Performed By: #### 5 7021-8 ####[facility] LABIA [id number] [place] [address] Monocytes (Bld) [#/Vol] 0.42 10*3/uL Normal <0.87 [facility] Comment on above: Order Comment: Speci men Type: BLOOD SPECIMENOrdering Facility: [facility] Address: [address] [place] [address] Performed By: #### 5 7021-8 ####[facility] LABCLIA [id number] [place] [address] Monocytes/100 WBC (Bld) 8.1 % Normal [facility] Comment on above: Order Comment: Speci men Type: BLOOD SPECIMENOrdering Facility: [facility] Address: [address] [place] [address] Performed By: #### 5 7021-8 ####[facility] LABIA [id number] [place] [address] Neutrophils (Bld) [#/Vol] 2.42 10*3/uL Normal 1.45-7.50 [facility] Comment on above: Order Comment: Speci men Type: BLOOD SPECIMENOrdering Facility: [facility] Address: [address] [place] [address] Performed By: #### 5 7021-8 ####[facility] LABCLIA [id number] [place] [address] Neutrophils/100 WBC (Bld) 46.8 % Normal [facility] Comment on above: Order Comment: Speci men Type: BLOOD SPECIMENOrdering Facility: [facility] Address: [address] [place] [address] Performed By: #### 5 7021-8 ####[facility] LABCLIA [id number] [place] [address] Nucleated RBC (Bld) [#/Vol] 10*3/uL Normal <0.01 [facility] Comment on above: Order Comment: Speci men Type: BLOOD SPECIMENOrdering Facility: [facility] Address: [address] [place] [address] Performed By: #### 5 7021-8 ####[facility] LABCLIA [id number] [place] [address] Nucleated RBC/100 WBC (Bld) [Ratio] 0.0 /100 WBC Normal [facility] Comment on above: Order Comment: Speci men Type: BLOOD SPECIMENOrdering Facility: [facility] Address: [address] [place] [address] Performed By: #### 5 7021-8 ####[facility] LABCLIA [id number] [place] [address] Platelet mean volume (Bld) [Entitic vol] 10.5 fL Normal 9.0-12.7 [facility] Comment on above: Order Comment: Speci men Type: BLOOD SPECIMENOrdering Facility: [facility] Address: [address] [place] [address] Performed By: #### 5 7021-8 ####[facility] LABCLIA [id number] [place] [address] Platelets (Bld) [#/Vol] 179 10*3/uL Normal 150-400 [facility] Comment on above: Order Comment: Speci men Type: BLOOD SPECIMENOrdering Facility: [facility] Address: [address] [place] [address] Performed By: #### 5 7021-8 ####[facility] LABCLIA [id number] [place] [address] RBC (Bld) [#/Vol] 4.48 10*6/uL Normal 3.90-5.20 [facility] Comment on above: Order Comment: Speci men Type: BLOOD SPECIMENOrdering Facility: [facility] Address: [address] [place] [address] Performed By: #### 5 7021-8 ####[facility] LABCLIA [id number] [place] [address] WBC (Bld) [#/Vol] 5.17 10*3/uL Normal 3.70-11.00 [facility] Comment on above: Order Comment: Speci men Type: BLOOD SPECIMENOrdering Facility: [facility] Address: [address] [place] [address] Performed By: #### 5 7021-8 ####[facility] LABCLIA [id number] [place] [address] [facility] CRP [Mass/Vol] mg/L Normal <0.9 [facility] Comment on above: Order Comment: Speci men Type: BLOOD SPECIMENOrdering Facility: [facility] Address: [address] [place] [address] Performed By: #### 1 798-8, 1987-, 304-3 ####[facility] LABCLIA [id number] [address] [address] [place] Comprehensive metabolic 2000 panelon 12-27-2023 Albumin [Mass/Vol] 4.6 g/dL Normal 3.9-4.9 [facility] Comment on above: Order Comment: Speci men Type: BLOOD SPECIMENOrdering Facility: [facility] Address: [address] [place] [address] Performed By: #### 2 4323-8 ####[facility] LABCLIA [id number] [place] [address] ALP [Catalytic activity/Vol] 53 U/L Normal 34-123 [facility] Comment on above: Order Comment: Speci men Type: BLOOD SPECIMENOrdering Facility: [facility] Address: [address] [place] [address] Performed By: #### 2 4323-8 ####[facility] LABCLIA [id number] [place] [address] ALT [Catalytic activity/Vol] 9 U/L Normal 7-38 [facility] Comment on above: Order Comment: Speci men Type: BLOOD SPECIMENOrdering Facility: [facility] Address: [address] [place] [address] Performed By: #### 2 4323-8 ####[facility] LABCLIA [id number] [place] [address] Anion gap [Moles/Vol] 6 mmol/L Low 8-15 [facility] Comment on above: Order Comment: Speci men Type: BLOOD SPECIMENOrdering Facility: [facility] Address: [address] [place] [address] Performed By: #### 2 4323-8 ####[facility] LABCLIA [id number] [place] [address] AST [Catalytic activity/Vol] 14 U/L Normal 13-35 [facility] Comment on above: Order Comment: Speci men Type: BLOOD SPECIMENOrdering Facility: [facility] Address: [address] [place] [address] Performed By: #### 2 4323-8 ####[facility] LABCLIA [id number] [place] [address] Bilirubin [Mass/Vol] 0.5 mg/dL Normal 0.2-1.3 [facility] Comment on above: Order Comment: Speci men Type: BLOOD SPECIMENOrdering Facility: [facility] Address: [address] [place] [address] Performed By: #### 2 4323-8 ####[facility] LABCLIA [id number] [place] [address] Calcium [Mass/Vol] 10.2 mg/dL Normal 8.5-10.2 [facility] Comment on above: Order Comment: Speci men Type: BLOOD SPECIMENOrdering Facility: [facility] Address: [address] [place] [address] Performed By: #### 2 4323-8 ####[facility] LABCLIA [id number] [place] [address] Chloride [Moles/Vol] 103 mmol/L Normal 98-107 [facility] Comment on above: Order Comment: Speci men Type: BLOOD SPECIMENOrdering Facility: [facility] Address: [address] [place] [address] Performed By: #### 2 4323-8 ####[facility] LABCLIA [id number] [place] [address] CO2 [Moles/Vol] 28 mmol/L Normal 22-30 [facility] Comment on above: Order Comment: Speci men Type: BLOOD SPECIMENOrdering Facility: [facility] Address: [address] [place] [address] Performed By: #### 2 4323-8 ####[facility] LABCLIA [id number] [place] [address] Creatinine [Mass/Vol] 0.68 mg/dL Normal 0.58-0.96 [facility] Comment on above: Order Comment: Speci men Type: BLOOD SPECIMENOrdering Facility: [facility] Address: [address] [place] [address] Performed By: #### 2 4323-8 ####[facility] LABCLIA [id number] [place] [address] Creatinine and Glomerular filtration rate.predicted panel (S/P/Bld) 124 mL/min/1.73m??? Normal >=60 [facility] Comment on above: Order Comment: Speci men Type: BLOOD SPECIMENOrdering Facility: [facility] Address: [address] [place] [address] Result Comment: Ny mated Glomerular Filtration Rate [...] actual GFR. Performed By: #### 2 4323-8 ####[facility] LABCLIA [id number] [place] [address] Glucose [Mass/Vol] 97 mg/dL Normal 74-99 [facility] Comment on above: Order Comment: Speci men Type: BLOOD SPECIMENOrdering Facility: [facility] Address: [address] [place] [address] Result Comment: The [place] [employer] (ADA) provides guidance for cutoff [...] Standards of Medical Care in Diabetes 2016, [place] [employer]. Diabetes Care. 2016.39(Suppl 1). Performed By: #### 2 4323-8 ####[facility] LABCLIA [id number] [place] [address] Potassium [Moles/Vol] 4.3 mmol/L Normal 3.7-5.1 [facility] Comment on above: Order Comment: Speci men Type: BLOOD SPECIMENOrdering Facility: [facility] Address: [address] [place] [address] Performed By: #### 2 4323-8 ####[facility] LABCLIA [id number] [place] [address] Protein [Mass/Vol] 7.2 g/dL Normal 6.3-8.0 [facility] Comment on above: Order Comment: Speci men Type: BLOOD SPECIMENOrdering Facility: [facility] Address: [address] [place] [address] Performed By: #### 2 4323-8 ####[facility] LABCLIA [id number] [place] [address] Sodium [Moles/Vol] 137 mmol/L Normal 136-144 [facility] Comment on above: Order Comment: Speci men Type: BLOOD SPECIMENOrdering Facility: [facility] Address: [address] [place] [address] Performed By: #### 2 4323-8 ####[facility] LABCLIA [id number] [place] [address] Urea nitrogen [Mass/Vol] 13 mg/dL Normal 7-21 [facility] Comment on above: Order Comment: Speci men Type: BLOOD SPECIMENOrdering Facility: [facility] Address: [address] [place] [address] Performed By: #### 2 4323-8 ####[facility] LABCLIA [id number] [place] [address] ESR Westergren method (Bld) [Velocity]on 12-27-2023 ESR (Bld) [Velocity] 12 mm/h Normal 0-20 [facility] Comment on above: Order Comment: Speci men Type: BLOOD SPECIMENOrdering Facility: [facility] Address: [address] [place] [address] Performed By: #### 4 537-7 ####[facility] LABCLIA [id number] [address] [place] [address] [place] Eosinophils/100 WBC Auto (Bl d)on 12-27-2023 Eosinophils/100 WBC (Bld) 4.3 % [facility] Erythrocyte distribution wid th Auto (RBC) [Ratio]on 12-27-2023 Erythrocyte distribution width (RBC) [Ratio] 11.6 % 11.5-15.0 [facility] Hematocrit Auto (Bld) [Volum e fraction]on 12-27-2023 Hematocrit (Bld) [Volume fraction] 41.5 % 36.0-46.0 [facility] Hemoglobin [Mass/volume] in Bloodon 12-27-2023 Hemoglobin (Bld) [Mass/Vol] 14.1 g/dL 11.5-15.5 [facility] Laboratory - Chemistry and C hemistry - challengeon 12-27-2023 Albumin [Mass/Vol] 4.6 g/dL 3.9-4.9 [facility] ALP [Catalytic activity/Vol] 53 U/L 34-123 [facility] ALT [Catalytic activity/Vol] 9 U/L 7-38 [facility] Amylase [Catalytic activity/Vol] 44 U/L 30-104 [facility] AST [Catalytic activity/Vol] 14 U/L 13-35 [facility] Bilirubin [Mass/Vol] 0.5 mg/dL 0.2-1.3 [facility] Calcium [Mass/Vol] 10.2 mg/dL 8.5-10.2 [facility] Chloride [Moles/Vol] 103 mmol/L 98-107 [facility] CO2 [Moles/Vol] 28 mmol/L 22-30 [facility] Creatinine [Mass/Vol] 0.68 mg/dL 0.58-0.96 [facility] Glucose [Mass/Vol] 97 mg/dL 74-99 [facility] Comment on above: The [place] Diab[employer] s Association (ADA) provides guidance for [...] Standards of Medical Care in Diabetes 2016, [place] [employer]. Diabetes Care. 2016.39(Suppl 1). Lipase [Catalytic activity/Vol] 22 U/L [facility] Potassium [Moles/Vol] 4.3 mmol/L 3.7-5.1 [facility] Sodium [Moles/Vol] 137 mmol/L 136-144 [facility] Urea nitrogen [Mass/Vol] 13 mg/dL 02-09 [facility] Laboratory - Hematology and Cell countson 12-27-2023 Eosinophils (Bld) [#/Vol] 0.22 10*3/uL <0.46 [facility] ESR (Bld) [Velocity] 12 mm/h 0- [facility] Immature granulocytes/100 WBC (Bld) 0.2 % [facility] Leukocytes [#/volume] correc shena for nucleated erythrocytes in Blood by Automated counon 12-27-2023 WBC corrected for nucl RBC Auto (Bld) [#/Vol] 5.17 k/uL 3.70-11.00 [facility] Lipase SerPl-cCncon 12-27-19 24 Lipase [Catalytic activity/Vol] 22 U/L Normal [facility] Comment on above: Order Comment: Speci men Type: BLOOD SPECIMENOrdering Facility: [facility] Address: [address] [place] [address] Performed By: #### 1 798-8, 1987-11, 3039-09 ####[facility] LABCLIA [id number] [place] [address] [place] Lymphocytes Auto (Bld) [#/Vo l]on 12-27-2023 Lymphocytes (Bld) [#/Vol] 2.06 10*3/uL 1.00-4.00 [facility] Lymphocytes/100 WBC Auto (Bl d)on 12-27-2023 Lymphocytes/100 WBC (Bld) 39.8 % [facility] MCH Auto (RBC) [Entitic mass ]on 12-27-2023 MCH (RBC) [Entitic mass] 31.5 pg 26.0-34.0 [facility] MCHC Auto (RBC) [Mass/Vol]on 12-27-2023 MCHC (RBC) [Mass/Vol] 34.0 g/dL 30.5-36.0 [facility] MCV Auto (RBC) [Entitic vol] on 12-27-2023 MCV (RBC) [Entitic vol] 92.6 fL 80.0-100.0 [facility] Monocytes Auto (Bld) [#/Vol] on 12-27-2023 Monocytes (Bld) [#/Vol] 0.42 10*3/uL <0.87 [facility] Monocytes/100 WBC Auto (Bld) on 12-27-2023 Monocytes/100 WBC (Bld) 8.1 % [facility] Neutrophils Auto (Bld) [#/Vo l]on 12-27-2023 Neutrophils (Bld) [#/Vol] 2.42 10*3/uL 1.45-7.50 [facility] Neutrophils/100 WBC Auto (Bl d)on 12-27-2023 Neutrophils/100 WBC (Bld) 46.8 % [facility] No Panel Informationon 12-26 C-Reactive Protein, Quantitative <0.3 mg/dL <0.9 [facility] Estimated GFR (CKD-EPI) 124 mL/min/1.73m??? >=60 [facility] Comment on above: Estimated Glomerular Filtration Rate [...] Immature Granulocyte # (Auto) <0.03 k/uL <0.10 [facility] Nucleated RBC Auto (Bld) [#/ Vol]on 12-27-2023 Nucleated RBC (Bld) [#/Vol] 10*3/uL <0.01 [facility] Nucleated erythrocytes [Pres ence] in Blood by Automated counton 12-27-2023 Nucleated RBC Auto Ql (Bld) 0.0 /100{WBC} [facility] Platelet mean volume Auto (B ld) [Entitic vol]on 12-27-2023 Platelet mean volume (Bld) [Entitic vol] 10.5 fL 9.0-12.7 [facility] Platelets Auto (Bld) [#/Vol] on 12-27-2023 Platelets (Bld) [#/Vol] 179 10*3/uL 150-400 [facility] Protein [Mass/volume] in Ser um or Plasmaon 12-27-2023 Protein [Mass/Vol] 7.2 g/dL 6.3-8.0 [facility] RBC Auto (Bld) [#/Vol]on RBC (Bld) [#/Vol] 4.48 10*6/uL 3.90-5.20 [facility] Serum or plasma anion gap de terminationon 12-27-2023 Anion gap [Moles/Vol] 6 mmol/L Low 8-15 [facility] CNCOon 12-05-2023 CNCO Letter Text Normal [facility] CNOVon 12-05-2023 CNOV Office Visit ([id number] ) ----- CHIOMA ALONZO ([id number]) 2000 F Date Time Provider Department 12/05/23 2:00 PM ARIELLA MCCOY [id number] During your visit today, we recorded the following information about you: Temperature Pulse Blood pressure Weight 98 degrees 90/minute 106/64 50.8 kg Height 1.626 m Alivia [place] 12/05/2023 1:49 PM Signed What is the [...] PM Signed GENERAL SURGERY FOLLOW UP SUBJECTIVE: Chioma Alonzo presents for follow up of her [...] KAREN Mccoy APRN.CNP Referring Provider: ANALIA HOLLIDAY [[id number]] Allergies As of Date: 12/05/2023 Noted Allergy Reaction METRONIDAZOLE 09/07/2020 1 - Mental Status Change 6 - Diarrhea 8 - GI Upset 4 - Hives 14 - Other: See Comments 2 - Rash 12 - Shortness of Breath 16 - Unknown 11 - Vomiting Date Reviewed: 12/05/2023 Reviewed by: Ariella Mccoy APRN.SMELTING ENGINEER - Fully Assessed Reason for Visit: Post [...] for Encounter Date Provider Department Center 12/05/2023 [id number] MCCOY [id number] [facility] Encounter Status:Closed by MAGGIEARIELLA BAEZ on 12/05/[address] [facility] ANES POSTPROC EVALon 024 ANES POSTPROC EVAL HNO ID: [id number] Author: MOSHE KRISHNAMURTHY DO Service: Anesthesiology Author Type: Anesthesiologist Type: Anesthesia Postprocedure Evaluation Filed: 11/21/2023 17:47 Note Text: POST ANESTHESIA EVALUATION NOTE : 2000 Procedure Summary Date: 11/21/23 Room / Location: OR / [facility] OR Anesthesia Start: 1408 Anesthesia [...] Documentation SIGNATURE: Moshe Krishnamurthy DO PATIENT NAME: Chioma Alonzo DATE: November 21, 2023 TIME: 5:47 PM CSN: [id number] [facility] ANES PRE-OPon 11-21-2023 ANES PRE-OP HNO ID: [id number] Author: MOSHE KRISHNAMURTHY DO Service: Anesthesiology Author [...] Surgery/Procedure. SIGNATURE: Moshe Krishnamurthy DO PATIENT NAME: Chioma Alonzo DATE: November 21, 2023 TIME: 2:08 PM CSN: [id number] [facility] BRIEF OP NOTon 11-21-2023 BRIEF OP NOT HNO ID: [id number] Author: ANA LLANES MD Service: General Surgery Author Type: Resident Type: Brief Op Note Filed: 11/21/2023 15:32 Note Text: GENERAL SURGERY BRIEF OPERATIVE NOTE Chioma Alonzo [id number] LOG ID: [id number] Surgery/Procedure Date: 11/21/2023 Incision/Procedure Start Time: 2:30 PM Incision Close/Procedure End Time: 3:23 PM Surgeon(s)/Proceduralist( s) and Planting Material Remover(s): Surgeon(s) and Role: * Seema Davis MD [...] PACU SIGNATURE: Ana Llanes MD PATIENT NAME: Chioma Alonzo DATE: November 21, 2023 TIME: 3:31 PM PAGER/CONTACT #: [phone] Normal [facility] OPERATIVE NOon 11-21-2023 OPERATIVE NO HNO ID: [id number] Author: SEEMA DAVIS MD Service: General Surgery Author Type: Physician Type: Operative Report Filed: 11/23/2023 14:05 Note Text: [facility] - Operative Report CHIOMA ALOZNO : 2000 AGE: 23. SEX: F PATIENT TYPE: A HOSP SVC: [facility] LOCATION: [facility] ATTENDING PHYSICIAN: Seema Davis M.D. CSN NUMBER: [id number] DATE OF SURGERY/PROCEDURE: 11/21/2023 INCISION/PROCEDURE START TIME: 2:30 PM INCISION CLOSE/PROCEDURE END TIME: 3:23 PM PREOPERATIVE DIAGNOSIS: Epigastric and right upper quadrant abdominal pain. POSTOPERATIVE DIAGNOSIS: Epigastric and right upper quadrant abdominal pain. SURGEON: Seema Davis M.D. BOAT PILOT: Ana Llanes M.D. SURGERY/PROCEDURE: Laparoscopic cholecystectomy. ANESTHESIA: [...] infraumbilical site was closed with a single [id number] #0 Vicryl suture, local anesthetic was infiltrated and this was closed in layers with 3-0 Vicryl. The 5 mm sites were closed with 4-0 Monocryl. The wounds were washed and dried and Exofin glue applied. Patient was awakened and taken to Recovery in satisfactory condition. All counts were correct x2. I was present for the entire operation. Seema Davis M.D. :[id number] /[id number] [facility] PT EDon 11-21-2023 PT ED HNO ID: [id number] Author: JUAN NIEVES RN Service: Nursing Author Type: Registered Nurse Type: Patient Education Filed: 11/21/2023 16:52 Note Text: PATIENT EDUCATION TOPIC: PROCEDURE / SURGERY: Post-op Teaching: Med Administration, Symptom Management, and Wound Care PATIENT NAME: Chioma Alonzo PATIENT LOCATION: [facility] OR POOL/FV OR [...] (RECOMMENDATION): None Electronically Signed By: Juan Nieves [facility] PT ED HNO ID: [id number] Author: CRISTI PAINTER RN Service: ? Author Type: Registered Nurse Type: Patient Education Filed: 11/21/2023 13:48 Note Text: PATIENT EDUCATION TOPIC: PROCEDURE / SURGERY: Pre-op Teaching: Logistics Protocols Complication Prevention PATIENT NAME: Chioma PATIENT LOCATION: [facility] OR POOL/FV OR POOL [...] None REFERRAL (RECOMMENDATION): None Electronically Signed By: Cristi Painter [facility] SURGICAL PATHOLOGYon 024 CASE REPORT [facility] Comment on above: Order Comment: Speci men Type: TISSUE SPECIMENOrdering Facility: [facility] Address: [address] [place] [address] Result Comment: Surg ical Pathology Report Case: [id number] Authorizing Provider: Seema Davis MD Collected: 11/21/2023 02:39 PM Ordering Location: [facility] Received: 11/22/2023 07:43 AM Operating Room Pathologist: Woordow Rain MD Specimen: Gallbladder Performed By: #### S ####[facility] [id number] [address] [place] CLINICAL HISTORY Normal [facility] Comment on above: Order Comment: Reilly medel Type: TISSUE SPECIMENOrdering Facility: [facility] Address: [address] [place] [address] Result Comment: Pre- op diagnosis: Cholecystitis [K81.9] Performed By: #### S ####[facility]IA [id number] [address] FINAL DIAGNOSIS [facility] Comment on above: Order Comment: Speci men Type: TISSUE SPECIMENOrdering Facility: [facility] Address: [address] [place] [address] Result Comment: A. G allbladder, cholecystectomy: -Gallbladder with no diagnostic abnormality. Performed By: #### S ####[facility] LABCLIA [id number] [place] [address] [place] FINAL PERFORMING LAB Normal [facility] Comment on above: Order Comment: Speci men Type: TISSUE SPECIMENOrdering Facility: [facility] Address: [address] [place] [address] Result Comment: Diag nostic interpretation performed at [facility], [facility] [place] [address] CLIA# [id number] Certified Executive Chef: Roverto Coleman M.D. Performed By: #### S ####[facility] LABCLIA [id number] [place] [address] [place] GROSS DESCRIPTION A. Gallbladder [facility] Comment on above: Order Comment: Speci men Type: TISSUE SPECIMENOrdering Facility: [facility] Address: [address] [place] [address] Result Comment: Rece ived in formalin designated [...] with a wall thickness of 0.1 cm. Health Care Aide sections are submitted in 1 cassette. WE November 22, 2023 11:51 AM Gross examination performed at [facility], [address] [place] [address] Performed By: #### S ####[facility] LABCLIA [id number] [place] [address] [place] Basophils Auto (Bld) [#/Vol] on 11-15-2023 Basophils (Bld) [#/Vol] 0.04 10*3/uL <0.11 [facility] Basophils/100 WBC Auto (Bld) on 11-15-2023 Basophils/100 WBC (Bld) 0.7 % [facility] Blood manual differential co mment interpretation narrativeon 11-15-2023 Manual differential comment Ganga (Bld) [Interp] Auto [facility] CBC W Auto Differential pane l (Bld)on 11-15-2023 Basophils (Bld) [#/Vol] 0.04 10*3/uL [facility] Basophils/100 WBC (Bld) 0.7 % [facility] Differential cell count method Nom (Bld) Auto [facility] Eosinophils (Bld) [#/Vol] 0.19 10*3/uL [facility] Eosinophils/100 WBC (Bld) 3.4 % [facility] Erythrocyte distribution width (RBC) [Ratio] 11.6 % 11.5 - 15.0 % [facility] Hematocrit (Bld) [Volume fraction] 37.7 % 36.0 - 46.0 % [facility] Hemoglobin (Bld) [Mass/Vol] 12.6 g/dL 11.5 - 15.5 g/dL [facility] Immature granulocytes (Bld) [#/Vol] [facility] Immature granulocytes/100 WBC (Bld) 0.2 % [facility] Lymphocytes (Bld) [#/Vol] 2.43 10*3/uL [facility] Lymphocytes/100 WBC (Bld) 43.6 % [facility] MCH (RBC) [Entitic mass] 31.9 pg 26.0 - 34.0 pg [facility] MCHC (RBC) [Mass/Vol] 33.4 g/dL 30.5 - 36.0 g/dL [facility] MCV (RBC) [Entitic vol] 95.4 fL 80.0 - 100.0 fL [facility] Monocytes (Bld) [#/Vol] 0.47 10*3/uL [facility] Monocytes/100 WBC (Bld) 8.4 % [facility] Neutrophils (Bld) [#/Vol] 2.43 10*3/uL [facility] Neutrophils/100 WBC (Bld) 43.7 % [facility] Nucleated RBC (Bld) [#/Vol] [facility] Nucleated RBC/100 WBC (Bld) [Ratio] 0.0 % /100 WBC [facility] Platelet mean volume (Bld) [Entitic vol] 10.5 fL 9.0 - 12.7 fL [facility] Platelets (Bld) [#/Vol] 201 10*3/uL [facility] RBC (Bld) [#/Vol] 3.95 10*6/uL 3.90 - 5.2 0 m/uL [facility] WBC (Bld) [#/Vol] 5.57 10*3/uL [facility] Basophils (Bld) [#/Vol] 0.04 10*3/uL Normal <0.11 [facility] Comment on above: Order Comment: Speci men Type: BLOOD SPECIMEN [facility] Address: [address] [place] [address] Performed By: #### 5 7021-8 #### [facility] CLIA [id number] [address] [place] [address] [place] Basophils/100 WBC (Bld) 0.7 % Normal [facility] Comment on above: Order Comment: Speci men Type: BLOOD SPECIMEN [facility] Address: [address] [place] [address] Performed By: #### 5 7021-8 #### [facility] CLIA [id number] [address] [place] [address] [place] Differential cell count method Nom (Bld) Auto Normal [facility] Comment on above: Order Comment: Speci men Type: BLOOD SPECIMEN [facility] Address: [address] [place] [address] Performed By: #### 5 7021-8 #### [facility] CLIA [id number] [facility] [place] [address] [place] Eosinophils (Bld) [#/Vol] 0.19 10*3/uL Normal <0.46 [facility] Comment on above: Order Comment: Speci men Type: BLOOD SPECIMEN [facility] Address: [address] [place] [address] Performed By: #### 5 7021-8 #### [facility] CLIA [id number] [address] [place] [address] [place] Eosinophils/100 WBC (Bld) 3.4 % Normal [facility] Comment on above: Order Comment: Speci men Type: BLOOD SPECIMEN [facility]: [facility] Address: [address] [place] [address] Performed By: #### 5 7021-8 #### [facility] IA [id number] [address] [place] [address] [place] Erythrocyte distribution width (RBC) [Ratio] 11.6 % Normal 11.5-15.0 [facility] Comment on above: Order Comment: Speci men Type: BLOOD SPECIMEN [facility] Address: [address] [place] [address] Performed By: #### 5 7021-8 #### [facility] IA [id number] [address] [place] [address] [place] Hematocrit (Bld) [Volume fraction] 37.7 % Normal 36.0-46.0 [facility] Comment on above: Order Comment: Speci men Type: BLOOD SPECIMEN [facility] Address: [address] [place] [address] Performed By: #### 5 7021-8 #### [facility] IA [id number] [address] [place] [address] [place] Hemoglobin (Bld) [Mass/Vol] 12.6 g/dL Normal 11.5-15.5 [facility] Comment on above: Order Comment: Speci men Type: BLOOD SPECIMEN [facility] Address: [address] [place] [address] Performed By: #### 5 7021-8 #### [facility] IA [id number] [address] [place] [address] [place] Immature granulocytes (Bld) [#/Vol] 10*3/uL Normal <0.10 [facility] Comment on above: Order Comment: Speci men Type: BLOOD SPECIMEN [facility] Address: [address] [place] [address] Performed By: #### 5 7021-8 #### [facility] IA [id number] [address] [place] [address] [place] Immature granulocytes/100 WBC (Bld) 0.2 % Normal [facility] Comment on above: Order Comment: Speci men Type: BLOOD SPECIMEN [facility] Address: [address] [place] [address] Performed By: #### 5 7021-8 #### [facility] IA [id number] [address] [place] [address] [place] Lymphocytes (Bld) [#/Vol] 2.43 10*3/uL Normal 1.00-4.00 [facility] Comment on above: Order Comment: Speci men Type: BLOOD SPECIMEN [facility]: [facility] Address: [address] [place] [address] Performed By: #### 5 7021-8 #### [facility] IA [id number] [address] [place] Lymphocytes/100 WBC (Bld) 43.6 % Normal [facility] Comment on above: Order Comment: Speci men Type: BLOOD SPECIMEN [facility]: [facility] Address: [address] [place] [address] Performed By: #### 5 7021-8 #### [facility] IA [id number] [address] [place] MCH (RBC) [Entitic mass] 31.9 pg Normal 26.0-34.0 [facility] Comment on above: Order Comment: Speci men Type: BLOOD SPECIMEN [facility]ing [facility]: [facility] Address: [address] [place] [address] Performed By: #### 5 7021-8 #### [facility] IA [id number] [address] [place] [address] [place] MCHC (RBC) [Mass/Vol] 33.4 g/dL Normal 30.5-36.0 [facility] Comment on above: Order Comment: Speci men Type: BLOOD SPECIMEN [facility] Address: [address] [place] [address] Performed By: #### 5 7021-8 #### [facility] CLIA [id number] [address] [place] [address] [place] MCV (RBC) [Entitic vol] 95.4 fL Normal 80.0-100.0 [facility] Comment on above: Order Comment: Speci men Type: BLOOD SPECIMEN [facility]: [facility] Address: [address] [place] [address] Performed By: #### 5 7021-8 #### [facility] CLIA [id number] [address] [place] [address] [place] Monocytes (Bld) [#/Vol] 0.47 10*3/uL Normal <0.87 [facility] Comment on above: Order Comment: Speci men Type: BLOOD SPECIMEN [facility] Address: [address] [place] [address] Performed By: #### 5 7021-8 #### [facility] CLIA [id number] [address] [place] Monocytes/100 WBC (Bld) 8.4 % Normal [facility] Comment on above: Order Comment: Speci men Type: BLOOD SPECIMEN [facility] Address: [address] [place] [address] Performed By: #### 5 7021-8 #### [facility] CLIA [id number] [address] [place] [address] [place] Neutrophils (Bld) [#/Vol] 2.43 10*3/uL Normal 1.45-7.50 [facility] Comment on above: Order Comment: Speci men Type: BLOOD SPECIMEN [facility] Address: [address] [place] [address] Performed By: #### 5 7021-8 #### [facility] CLIA [id number] [address] [place] [id number] [place] Neutrophils/100 WBC (Bld) 43.7 % Normal [facility] Comment on above: Order Comment: Speci men Type: BLOOD SPECIMEN [facility] Address: [address] [place] [address] Performed By: #### 5 7021-8 #### [facility] CLIA [id number] [address] [place] [address] [place] Nucleated RBC (Bld) [#/Vol] 10*3/uL Normal <0.01 [facility] Comment on above: Order Comment: Speci men Type: BLOOD SPECIMEN [facility] Address: [address] [place] [address] Performed By: #### 5 7021-8 #### [facility] IA [id number] [address] [place] [address] [place] Nucleated RBC/100 WBC (Bld) [Ratio] 0.0 /100 WBC Normal [facility] Comment on above: Order Comment: Speci men Type: BLOOD SPECIMEN [facility] Address: [address] [place] [address] Performed By: #### 5 7021-8 #### [facility] IA [id number] [address] [place] [address] [place] Platelet mean volume (Bld) [Entitic vol] 10.5 fL Normal 9.0-12.7 [facility] Comment on above: Order Comment: Speci men Type: BLOOD SPECIMEN [facility] Address: [address] [place] [address] Performed By: #### 5 7021-8 #### [facility] IA [id number] [address] [place] [address] [place] Platelets (Bld) [#/Vol] 201 10*3/uL Normal 150-400 [facility] Comment on above: Order Comment: Speci men Type: BLOOD SPECIMEN [facility] Address: [address] [place] [address] Performed By: #### 5 7021-8 #### [facility] IA [id number] [address] [place] [address] [place] RBC (Bld) [#/Vol] 3.95 10*6/uL Normal 3.90-5.20 [facility] Comment on above: Order Comment: Speci men Type: BLOOD SPECIMEN [facility] Address: [address] [place] [address] Performed By: #### 5 7021-8 #### [facility] CLIA [id number] [address] [place] [address] [facility] WBC (Bld) [#/Vol] 5.57 10*3/uL Normal 3.70-11.00 [facility] Comment on above: Order Comment: Speci men Type: BLOOD SPECIMEN [facility] Address: [address] [place] [address] Performed By: #### 5 7021-8 #### [facility] CLIA [id number] [address] [facility] [place] [address] [facility] CNPNon 11-15-2023 CNPN Telephone (AVPANE) ----- CHIOMA ALONZO Roland ([id number]) 2000 F Date Time Provider Department 11/15/23 MADHU CAUSEY During your visit today, we recorded the following information about you: Madhu Causey PA-C 11/16/2023 7:[address] Rushing , Your patient was seen for preanesthesia consult 11/15/2023. Chioma Puentese is scheduled for LAPAROSCOPIC CHOLECYSTECTOMY with Dr. Seema Davis on 11/21/2023. Do you feel they are medically optimized and ok to proceed as scheduled? Event monitor preliminary reading in [facility] [place] [facility] Recording/Telemetry [ID [id number]] ECHO completed in [place]. Of note she also has been to the ED 2 times for her palpitations since your visit, with c/o of palpations intermittently throughout the day. she denies associated SOB or dizziness. She reports her symptoms have not changed. Thank you, Madhu Causey PA-C [facility] Valery Lujan, [...] a cardiac standpoint. Per his last OV Madhu Causey PA-C 11/16/2023 7:38 AM Signed Sedrick [...] PM Signed Faxed Cardiac Clearance form to [facility] at [phone]. Scanned into chart. CHATO Ramirez Allergies As [...] 11/15/2023 Palpitations [R00.2] 11/15/2023 Encounter Status:Closed by MADHU CAUSEY on 11/16/23 [facility] Comprehensive metabolic 2000 panelon 11-15-2023 Albumin [Mass/Vol] 4.4 g/dL 3.9 - 4.9 g/dL [facility] ALP [Catalytic activity/Vol] 47 U/L 34 - 123 U/L [facility] ALT [Catalytic activity/Vol] 8 U/L 7 - 38 U/L [facility] Anion gap [Moles/Vol] 11 mmol/L 9 - 18 mmol/L [facility] AST [Catalytic activity/Vol] 18 U/L 13 - 35 U/L [facility] Bilirubin [Mass/Vol] 0.4 mg/dL 0.2 - 1 .3 mg/dL [facility] Calcium [Mass/Vol] 9.6 mg/dL 8.5 - 10. 2 mg/dL [facility] Chloride [Moles/Vol] 103 mmol/L 97 - 10 5 mmol/L [facility] CO2 [Moles/Vol] 24 mmol/L 22 - 30 mmol/L [facility] Creatinine [Mass/Vol] 0.75 mg/dL 0.58 - 0.96 mg/dL [facility] GFR/1.73 sq M.predicted among non-blacks MDRD (S/P/Bld) [Vol rate/Area] 114 mL/min/{1.73_m2} - PINF [facility] Comment on above: Estimated Glomerular Filtration Rate [...] 109 mg/dL High 74 - 99 mg/dL [facility] Comment on above: The [place] Di[employer] s Association (ADA) provides guidance for [...] Standards of Medical Care in Diabetes 2016, [employer]. Diabetes Care. 2016.39(Suppl 1). Interpretation and review of laboratory results Abnormal [facility] Potassium [Moles/Vol] 4.5 mmol/L 3.7 - 5.1 mmol/L [facility] Protein [Mass/Vol] 6.9 g/dL 6.3 - 8.0 g/dL [facility] Sodium [Moles/Vol] 138 mmol/L 136 - 144 mmol/L [facility] Urea nitrogen [Mass/Vol] 16 mg/dL 7 - 21 mg/dL [facility] Albumin [Mass/Vol] 4.4 g/dL Normal 3.9-4.9 [facility] Comment on above: Order Comment: Reilly medel Type: BLOOD SPECIMEN [facility] Address: [address] [place] [address] Performed By: #### 2 4323-8 #### [facility] CLIA [id number] [address] [facility] [place] [address] [place] ALP [Catalytic activity/Vol] 47 U/L Normal 34-123 [facility] Comment on above: Order Comment: Speci men Type: BLOOD SPECIMEN [facility]ing Facility: [facility] Address: [address] [place] [address] Performed By: #### 2 4323-8 #### [facility] CLIA [id number] [address] [place] [address] [place] ALT [Catalytic activity/Vol] 8 U/L Normal 7-38 [facility] Comment on above: Order Comment: Speci men Type: BLOOD SPECIMEN Ordering Facility: [facility] Address: [address] [place] [address] Performed By: #### 2 4323-8 #### [facility] CLIA [id number] [address] [place] [address] [place] Anion gap [Moles/Vol] 11 mmol/L Normal 9-18 [facility] Comment on above: Order Comment: Speci men Type: BLOOD SPECIMEN Ordering Facility: [facility] Address: [address] [place] [address] Performed By: #### 2 4323-8 #### [facility] IA [id number] [address] [place] [address] [place] AST [Catalytic activity/Vol] 18 U/L Normal 13-35 [facility] Comment on above: Order Comment: Speci men Type: BLOOD SPECIMEN Ordering Facility: [facility] Address: [address] [place] [address] Performed By: #### 2 4323-8 #### [facility] IA [id number] [address] [place] [address] [place] Bilirubin [Mass/Vol] 0.4 mg/dL Normal 0.2-1.3 [facility] Comment on above: Order Comment: Speci men Type: BLOOD SPECIMEN Ordering Facility: [facility] Address: [address] [place] [address] Performed By: #### 2 4323-8 #### [facility] IA [id number] [address] [place] [address] [place] Calcium [Mass/Vol] 9.6 mg/dL Normal 8.5-10.2 [facility] Comment on above: Order Comment: Speci men Type: BLOOD SPECIMEN Ordering Facility: [facility] Address: [address] [place] [address] Performed By: #### 2 4323-8 #### [facility] CLIA [id number] [address] [place] [address] [place] Chloride [Moles/Vol] 103 mmol/L Normal 97-105 [facility] Comment on above: Order Comment: Speci men Type: BLOOD SPECIMEN Ordering Facility: [facility] Address: [address] [place] [address] Performed By: #### 2 4323-8 #### [facility] CLIA [id number] [address] [place] [address] [place] CO2 [Moles/Vol] 24 mmol/L Normal 22-30 [facility] Comment on above: Order Comment: Speci men Type: BLOOD SPECIMEN Ordering Facility: [facility] Address: [address] [place] [address] Performed By: #### 2 4323-8 #### [facility] CLIA [id number] [address] [place] [address] [place] Creatinine [Mass/Vol] 0.75 mg/dL Normal 0.58-0.96 [facility] Comment on above: Order Comment: Speci men Type: BLOOD SPECIMEN Ordering Facility: [facility] Address: [address] [place] [address] Performed By: #### 2 4323-8 #### [facility] CLIA [id number] [address] [place] [address] [place] Creatinine and Glomerular filtration rate.predicted panel (S/P/Bld) 114 mL/min/1.73m??? Normal >=60 [facility] Comment on above: Order Comment: Speci men Type: BLOOD SPECIMEN Ordering Facility: [facility] Address: [address] [place] [address] Result Comment: Ny mated Glomerular Filtration Rate [...] GFR. Performed By: #### 2 4323-8 #### [facility] CLIA [id number] [address] [place] [address] [place] Glucose [Mass/Vol] 109 mg/dL High 74-99 [facility] Comment on above: Order Comment: Meenai men Type: BLOOD SPECIMEN Ordering Facility: [facility] Address: [address] [place], [place] [id number] Result Comment: The [employer] Association (ADA) provides guidance for cutoff [...] Standards of Medical Care in Diabetes 2016, [employer]. Diabetes Care. 2016.39(Suppl 1). Performed By: #### 2 4323-8 #### [facility] CLIA [id number] [address] [place] [address] [place] Potassium [Moles/Vol] 4.5 mmol/L Normal 3.7-5.1 [facility] Comment on above: Order Comment: Reilly medel Type: BLOOD SPECIMEN Ordering Facility: [facility] Address: [address] [place] [address] Performed By: #### 2 4323-8 #### [facility] CLIA [id number] [address] [place] [address] [place] Protein [Mass/Vol] 6.9 g/dL Normal 6.3-8.0 [facility] Comment on above: Order Comment: Reilly men Type: BLOOD SPECIMEN Ordering Facility: [facility] Address: [address] [place], [place] [id number] Performed By: #### 2 4323-8 #### [facility] CLIA [id number] [address] [place] [address] [place] Sodium [Moles/Vol] 138 mmol/L Normal 136-144 [facility] Comment on above: Order Comment: Speci men Type: BLOOD SPECIMEN Ordering Facility: [facility] Address: [address] [place] [address] Performed By: #### 2 4323-8 #### [facility] CLIA [id number] [address] [place] [address] [place] Urea nitrogen [Mass/Vol] 16 mg/dL Normal 7-21 [facility] Comment on above: Order Comment: Speci men Type: BLOOD SPECIMEN Ordering Facility: [facility] Address: [address] [place] [address] Performed By: #### 2 4323-8 #### [facility] CLIA [id number] [address] [place] [address] [place] Eosinophils/100 WBC Auto (Bl d)on 11-15-2023 Eosinophils/100 WBC (Bld) 3.4 % [facility] Erythrocyte distribution wid th Auto (RBC) [Ratio]on 11-15-2023 Erythrocyte distribution width (RBC) [Ratio] 11.6 % 11.5-15.0 [facility] HISTORY PHYSICALon HISTORY PHYSICAL HNO ID: [id number] Author: MADHU CAUSEY PA-C Service: ? Author Type: Physician Planting Material Remover Type: H&P Filed: 11/16/2023 07:41 Note Text: HISTORY AND PHYSICAL EXAMINATION SERVICE DATE: 11/15/2023 SERVICE TIME: 2:43 PM PRIMARY CARE PHYSICIAN: Analia Holliday CNP REASON FOR VISIT: Chioma Alonzo is a 22 year old female [...] SOB. Pulse today 75, regular rhythm today [id number] Ejection Fraction - Result: 63 % [...] Yes No (more content not included)... Normal [facility] Hematocrit Auto (Bld) [Volum e fraction]on 11-15-2023 Hematocrit (Bld) [Volume fraction] 37.7 % 36.0-46.0 [facility] Hemoglobin [Mass/volume] in Bloodon 11-15-2023 Hemoglobin (Bld) [Mass/Vol] 12.6 g/dL 11.5-15.5 [facility] Laboratory - Chemistry and C hemistry - challengeon 11-15-2023 Albumin [Mass/Vol] 4.4 g/dL 3.9-4.9 [facility] ALP [Catalytic activity/Vol] 47 U/L 34-123 [facility] ALT [Catalytic activity/Vol] 8 U/L 7-38 [facility] AST [Catalytic activity/Vol] 18 U/L 13-35 [facility] Bilirubin [Mass/Vol] 0.4 mg/dL 0.2-1.3 [facility] Calcium [Mass/Vol] 9.6 mg/dL 8.5-10.2 [facility] Chloride [Moles/Vol] 103 mmol/L 97-105 [facility] CO2 [Moles/Vol] 24 mmol/L 22-30 [facility] Creatinine [Mass/Vol] 0.75 mg/dL 0.58-0.96 [facility] Glucose [Mass/Vol] 109 mg/dL 74-99 [facility] Comment on above: The [place] Diabete s Association (ADA) provides guidance for [...] Standards of Medical Care in Diabetes 2016, [employer]. Diabetes Care. 2016.39(Suppl 1). Potassium [Moles/Vol] 4.5 mmol/L 3.7-5.1 [facility] Sodium [Moles/Vol] 138 mmol/L 136-144 [facility] Urea nitrogen [Mass/Vol] 16 mg/dL 7-21 [facility] Laboratory - Hematology and Cell countson 11-15-2023 Eosinophils (Bld) [#/Vol] 0.19 10*3/uL <0.46 [facility] Immature granulocytes/100 WBC (Bld) 0.2 % [facility] Leukocytes [#/volume] correc shena for nucleated erythrocytes in Blood by Automated counon 11-15-2023 WBC corrected for nucl RBC Auto (Bld) [#/Vol] 5.57 k/uL 3.70-11.00 [facility] Lymphocytes Auto (Bld) [#/Vo l]on 11-15-2023 Lymphocytes (Bld) [#/Vol] 2.43 10*3/uL 1.00-4.00 [facility] Lymphocytes/100 WBC Auto (Bl d)on 11-15-2023 Lymphocytes/100 WBC (Bld) 43.6 % [facility] MCH Auto (RBC) [Entitic mass ]on 11-15-2023 MCH (RBC) [Entitic mass] 31.9 pg 26.0-34.0 [facility] MCHC Auto (RBC) [Mass/Vol]on 11-15-2023 MCHC (RBC) [Mass/Vol] 33.4 g/dL 30.5-36.0 [facility] MCV Auto (RBC) [Entitic vol] on 11-15-2023 MCV (RBC) [Entitic vol] 95.4 fL 80.0-100.0 [facility] Monocytes Auto (Bld) [#/Vol] on 11-15-2023 Monocytes (Bld) [#/Vol] 0.47 10*3/uL <0.87 [facility] Monocytes/100 WBC Auto (Bld) on 11-15-2023 Monocytes/100 WBC (Bld) 8.4 % [facility] Neutrophils Auto (Bld) [#/Vo l]on 11-15-2023 Neutrophils (Bld) [#/Vol] 2.43 10*3/uL 1.45-7.50 [facility] Neutrophils/100 WBC Auto (Bl d)on 11-15-2023 Neutrophils/100 WBC (Bld) 43.7 % [facility] No Panel Informationon 11-14 Estimated GFR (CKD-EPI) 114 mL/min/1.73m??? >=60 [facility] Comment on above: Estimated Glomerular Filtration Rate [...] Immature Granulocyte # (Auto) <0.03 k/uL <0.10 [facility] Nucleated RBC Auto (Bld) [#/ Vol]on 11-15-2023 Nucleated RBC (Bld) [#/Vol] 10*3/uL <0.01 [facility] Nucleated erythrocytes [Pres ence] in Blood by Automated counton 11-15-2023 Nucleated RBC Auto Ql (Bld) 0.0 /100{WBC} [facility] Platelet mean volume Auto (B ld) [Entitic vol]on 11-15-2023 Platelet mean volume (Bld) [Entitic vol] 10.5 fL 9.0-12.7 [facility] Platelets Auto (Bld) [#/Vol] on 11-15-2023 Platelets (Bld) [#/Vol] 201 10*3/uL 150-400 [facility] Protein [Mass/volume] in Ser um or Plasmaon 11-15-2023 Protein [Mass/Vol] 6.9 g/dL 6.3-8.0 [facility] RBC Auto (Bld) [#/Vol]on RBC (Bld) [#/Vol] 3.95 10*6/uL 3.90-5.20 [facility] Serum or plasma anion gap de terminationon 11-15-2023 Anion gap [Moles/Vol] 11 mmol/L 9-18 [facility] ECHOon 11-07-2023 Echocardiography Echocardiography Rep ort: [facility] Date of service: 11/07/2023 1:59:20 PM MEDICINE SUPERVISOR Ordering physician: SEDRICK RUSHING Indication: Abnormal ECG Technologist: Walt Silva [facility] Interpreting physician: Roberto Rodríguez MD PATIENT: Name: CHIOMA ALONZO : 2000 Age: 22 years Gender: [...] * * Final * * * CC [employer] [facility] Image : [id number] Normal [facility] 11-[facility]23 CNPN Telephone (CARDAV) ----- CHIOMA ALONZO Roland ([id number]) 2000 F Date Time Provider Department 11/05/23 [...] Fully Assessed Reason for Visit: Patient Question [1477] Cmt: PVCs and Frequent ED visits. Prescriptions [...] Encounter Status:Closed by SEDRICK RUSHING on 11/05/23 [facility] 10-30-2023 CNPN Telephone (ARNULFOAV) ----- CHIOMA ALONZO ([id number]) 2000 F Date Time Provider Department 10/30/23 SEDRICK RUSHING During your visit today, we recorded the following information about you: Juanis Cabello, RN 10/30/2023 11:14 AM Signed The pt is calling. Please review the my chart message from today for an EKG attachment she sent from her ED visit last night. She went to the [place] ED. Are you able to revue her [...] ongoing symptoms Staying hydrated Concerned Call CELL [phone] Leave Detailed messages Chichi Monroy, RN 11/01/2023 [...] Encounter Status:Closed by CHICHI MONROY on 11/01/[address] [facility] CNPMckayla 10-23-2023 CNPN Telephone (CARDAV) ----- CHIOMA ALONZO ([id number]) 2000 F Date Time Provider Department 10/23/23 SEDRICK RUSHING During your visit today, we recorded the following information about you: Wilfredo Avila OCCA 10/23/2023 1:53 PM Signed Received form requesting cardiac evaluation for surgical clearance from [facility] Surgery with Dr. Seema Davis. Surgery Date: 11-21-2023 Fax to [facility] Surgery: [phone] Rushing to review. CHATO Ramirez Cynthia, OCCA 12/07/2023 4:[address] Rushing filled out Cardiac Clearance Form. Faxed to [facility] Surgery at [phone]. Scanned into chart. CHATO Ramirez Allergies As [...] Status:Closed by WILFREDO AVILA on 10/23/23 Normal [facility] Telephone ([facility]) ----- CHIOMA ALONZO ([id number]) 2000 F Date Time Provider Department 10/23/23 SEEMA DAVIS [facility] During your visit today, we recorded the following information about you: Kym Gray RN 10/23/2023 1:[address] Sedrick Rushing's office for cardiac clearance at [phone]. Abnormal heart sounds with gallbladder consult on [...] Fully Assessed Reason for Visit: Cardiac Clearance [6920] Prescriptions as of 10/23/2023 - dicyclomine (BENTYL) [...] 12/08/2022 Photosensitivity [L56.8] 12/08/2022 Encounter Status:Closed by KYM GRAY on 10/23/23 Normal [facility] CNOVon 10-22-2023 CNOV Office Visit (CARINF ) ----- CHIOMA ALONZO ([id number]) 2000 F Date Time Provider Department 10/22/23 3:00 PM SEDRICK RUSHING During your visit today, we recorded the following information about you: Pulse Blood pressure Weight Height 40/minute 102/62 52.6 kg 1.626 m Sedrick Rushing MD 10/22/2023 3:17 PM [facility] [place] Iram Pathak Department of Cardiovascular Medicine SECTION OF REGIONAL CARDIOLOGY OUTPATIENT VISIT DATE October 21, 2023 OUTPATIENT VISIT TYPE NEW CONSULTATION PRIMARY CARE PHYSICIAN: Analia Holliday [address] [place] [address] [place] [address] CHIEF COMPLAINT: Palpitations HISTORY OF PRESENT ILLNESS: [...] Shortness of Breath, Unknown, Vomiting CURRENT MEDICATIONS: zdllyq-zmdcamte-nfbvdzm (CREON) 24,000-76,000 -120,000 unit delayed release capsule [...] on File Prior to Visit Medication Sig tjdklb-wfpbaiin-nanjiar (CREON) 24,000-76,000 -120,000 unit delayed release capsule [...] Sedrick Rushing MD Cardiovascular Medicine Staff [facility] [address] [address] [facility] [place] [place] [address] Azael LarsonANDREW 10/22/2023 3:33 PM Signed EVENT MONITOR DISPOSABLE PATCH INSTRUCTIONS Patient Name: Chioma Alonzo Clinic Number: [id number] Skin prepped and cleansed with alcohol Patch secured to prepped area Monitor Activated Serial #: [id number] Patient Instructed: Prescribed order timeframe Bathing guidelines Usage of event button and diary documentation Return of monitor at the end of prescribed order Call with problems [phone] or [phone]. [phone] (more content not included)... Normal [facility] CNOVon 10-19-2023 [facility] ----- CHIOMA ALONZO ([id number]) 2000 F Date Time Provider Department 10/19/23 2:20 PM SEEMA DAVIS [facility] During your visit today, we recorded [...] Take 4 mg by mouth as needed. 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 Lives with her . [...] the date of the service which included hhpm-tp-fyqr patient care, completing clinical documentation, obtaining and/or reviewing separately obtained history, performing a medically appropriate examination, counseling and educating the patient/family/caregiver, and independently interpreting results (not separately reported). Seema Davis MD . Kym Gray, RN 10/21/2023 9:18 PM Signed New [...] within normal limits Referring Provider: SEEMA DAVIS [[id number]] Allergies As of Date: 10/19/2023 Noted Allergy Reaction METRONIDAZOLE 09/07/2020 1 - Mental Status Change 6 - Diarrhea 8 - GI Upset 4 - Hives 14 - Other: See Comments 2 - Rash 12 - Shortness of Breath 16 - Unknown 11 - Vomiting Date Reviewed: 10/19/2023 (more content not included)... Normal [facility] ECG COMPLETEon 10-19-2023 ECG COMPLETE Ventricular Rate : 6 7 BPM Atrial Rate : 67 BPM P-R Interval : 160 ms QRS Duration : 94 ms Q-T Interval : 402 ms QTC Calculation(Bazett) : 424 ms Calculated P [place] : 76 degrees Calculated R [place] : 37 degrees Calculated T [place] : 57 degrees NORMAL SINUS RHYTHM WITH SINUS ARRHYTHMIA POSSIBLE LEFT ATRIAL ENLARGEMENT RSR' PATTERN IN V1 SUGGESTS INCOMPLETE RIGHT BUNDLE BRANCH BLOCK BORDERLINE ECG NO PREVIOUS ECGS AVAILABLE Confirmed by JENNIFER SURESH MD ([id number]) on 10/22/2023 1:00:28 PM NAME : CHIOMA ALONZO PID : [id number] : 2000 Gender : Female Race : ORD : [id number] Procedure Date : Oct 19 2023 14:37:15 Edit Date : Oct 22 2023 13:00:33 Diagnosis: NORMAL SINUS RHYTHM WITH SINUS ARRHYTHMIA POSSIBLE LEFT ATRIAL ENLARGEMENT RSR' PATTERN IN V1 SUGGESTS INCOMPLETE RIGHT BUNDLE BRANCH BLOCK BORDERLINE ECG NO PREVIOUS ECGS AVAILABLE Confirmed by JENNIFER SURESH MD ([id number]) on 10/22/2023 1:00:28 PM Test Reason : SVT Location : 667 : [facility] Overread By : JENNIFER SURESH MD Edited By : JENNIFER SURESH MD Referred By : SEEMA DAVIS Acquired by : [id number], Normal [facility] CNPNon 09-11-2023 CNPN Telephone (GASTNO) ----- CHIOMA ALONZO ([id number]) 2000 F Date Time Provider Department 09/11/23 [...] 09/11/2023 4:25 PM Signed Please refer to [facility] dated 09/11/2023. Gisela Ponce RN Allergies As of Date: 09/11/2023 Noted Allergy Reaction METRONIDAZOLE 09/07/2020 1 - Mental Status Change 6 - Diarrhea 8 - GI Upset 4 - Hives 14 - Other: See Comments 2 - Rash 12 - Shortness of Breath 16 - Unknown 11 - Vomiting Date Reviewed: 09/06/2023 Reviewed by: Mckenzie Segura, VIRGILIO - Fully Assessed Reason for Visit: Patient Update [1234] Prescriptions as of 09/11/2023 - ccttjg-sfttoxio-pdzdocx (CREON) 24,000-76,000 -120,000 unit delayed release capsule [...] Status:Closed by GISELA PONCE on 09/11/23 Normal [facility] ANES POSTPROC EVALon 024 ANES POSTPROC EVAL HNO ID: [id number] Author: TERRY PIMENTEL MD Service: Anesthesiology Author Type: Anesthesiologist Type: Anesthesia Postprocedure Evaluation Filed: 09/06/2023 13:55 Note Text: POST ANESTHESIA EVALUATION NOTE : 2000 Procedure Summary Date: 09/06/23 Room / Location: [facility] Endoscopy - ENDO Anesthesia Start: 1244 Anesthesia Stop: 1327 Procedure: EGD - THERAPEUTIC, EUS, OR TUBE INTERVENTIONS Diagnosis: Chronic recurrent pancreatitis (HCC) Scheduled Providers: Isabelle Menon MD; Terry Pimentel MD; Elif Hess APRN.RUBBER GOODS SUPERVISOR Responsible Provider: Terry Pimentel MD Anesthesia Type: MAC ASA Status: [...] of care. Anesthesia Observations No Documentation SIGNATURE: Terry Pimentel MD PATIENT NAME: Chioma Alonzo DATE: September 06, 2023 TIME: 1:55 PM CSN: [id number] Normal [facility] ANES PRE-OPon 09-06-2023 ANES PRE-OP HNO ID: [id number] Author: TERRY PIMENTEL MD Service: Anesthesiology Author Type: Anesthesiologist Type: Anesthesia Preprocedure Evaluation Filed: 09/06/2023 10:56 Note Text: ANESTHESIOLOGY DAY OF SURGERY NOTE : 2000 Procedure Information Date/Time: 09/06/23 1130 Scheduled providers: Isabelle Menon MD; Terry Pimentel MD; Elif Hess APRN.RUBBER GOODS SUPERVISOR Procedure: EGD - THERAPEUTIC, EUS, OR TUBE INTERVENTIONS Location: [facility] - ENDO Estimated body mass [...] 10 mg by mouth once daily. - fqdlpg-wpabqexi-cdwshna (CREON) 24,000-76,000 -120,000 unit delayed release capsule [...] obtained within 48 hours of Surgery/Procedure. SIGNATURE: Terry Pimentel MD PATIENT NAME: Chioma Alonzo DATE: September 06, 2023 TIME: 10:54 AM [id number] [facility] Telephone (FVPRAD) ----- CINDYCHIOMA Newberry Roland ([id number]) 2000 F Date Time Provider Department 09/06/23 [...] - Vomiting Date Reviewed: 09/06/2023 Reviewed by: Mckenize Segura RN - Fully Assessed Prescriptions as of 09/06/2023 - efceff-mrsoekrv-grbsobi (CREON) 24,000-76,000 -120,000 unit delayed release capsule [...] Encounter Status:Closed by ISABELLE MENON on 09/06/23 [facility] EGD Study observation Narrat iveon 09-06-2023 [facility] HISTORY PHYSICALon HISTORY PHYSICAL HNO ID: [id number] Author: ISABELLE MENON MD Service: Gastroenterology Author [...] mouth once daily. 09/05/2023 at 1000 Yes zyefro-jeeesukt-xrrqszt (CREON) 24,000-76,000 -120,000 unit delayed release capsule [...] pain. SIGNATURE: Isabelle Menon MD PATIENT NAME: Chioma Alonzo DATE: September 06, 2023 TIME: 12:20 PM [facility] NURSING PROGon 09-06-2023 NURSING PROG HNO ID: [id number] Author: RICKIE GU RN Service: Nursing Author [...] Endo in satisfactory condition Rickie Gu RN [facility] NURSING PROG HNO ID: [id number] Author: RICKIE GU RN Service: Nursing Author Type: Registered Nurse Type: Nursing Progress Note Filed: 09/06/2023 10:57 Note Text: PATIENT EDUCATION TOPIC: PROCEDURE / SURGERY: Procedure/Surgery: EGD/EUS PATIENT NAME: Chioma Alonzo PATIENT LOCATION: Room/bed info not found [...] (RECOMMENDATION): None Electronically Signed By: Rickie Gu [facility] Upper EUSon 09-06-2023 Upper EUS [facility] Gastrointestinal Endoscopy Patient Name: Chioma Alonzo Procedure Date: 09/06/2023 12:16 PM Date of : 2000 Admit Type: Outpatient Age: 22 Room: [place] [address] Gender: Female Note Status: Finalized Attending MD: Isabelle Menon MD, [id number] Procedure: Upper EUS Indications: Abnormal abdominal/pelvic CT [...] for cholecystectomy. 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 All rights reserved. The codes documented in this report are preliminary and upon medical biller coder review may be revised to meet current compliance requirements. Attending Participation: I personally performed the entire procedure. Scope In: 12:53:03 PM Scope Out: 1:22:36 PM MD Isabelle Cedeno MD 09/06/2023 3:29:47 PM This report has been signed electronically by Isabelle Menon MD Number of Addenda: 0 Note Initiated On: 09/06/2023 12:16 PM Estimated Blood Loss: Estimated blood loss: none. Normal [facility] Alanine aminotransferase [En zymatic activity/volume] in Serum or PlasmaOrdered By: Analia Holliday on 05-30-2023 ALT [Catalytic activity/Vol] 10 U/L 7-52 [facility] Albumin [Mass/volume] in Ser um or Plasma by Bromocresol green (BCG) dye binding methoOrdered By: Analia Holliday on 05-30-2023 Albumin BCG dye [Mass/Vol] 4.6 g/dL 3.5-5.7 [facility] Alkaline phosphatase [Enzyma tic activity/volume] in Serum or PlasmaOrdered By: Analia Holliday on 05-30-2023 ALP [Catalytic activity/Vol] 44 U/L 34-104 [facility] Aspartate aminotransferase [ Enzymatic activity/volume] in Serum or PlasmaOrdered By: Analia Holliday on 05-30-2023 AST [Catalytic activity/Vol] 16 U/L 13-39 [facility] Basophils Auto (Bld) [#/Vol] Ordered By: Analia Holliday on 05-30-2023 Basophils (Bld) [#/Vol] 0.0 10*3/uL 0.0-0.2 [facility] Basophils/100 WBC Auto (Bld) Ordered By: Analia Holliday on 05-30-2023 Basophils/100 WBC (Bld) 0.8 % . [facility] Bilirubin.total [Mass/volume ] in Serum or PlasmaOrdered By: Analia Holliday on 05-30-2023 Bilirubin [Mass/Vol] 0.6 mg/dL 0.3-1.0 [facility] Calcium [Mass/volume] in Ser um or PlasmaOrdered By: Analia Holliday on 05-30-2023 Calcium [Mass/Vol] 9.5 mg/dL 8.6-10.3 [facility] Carbon dioxide, total [Moles /volume] in Serum or PlasmaOrdered By: Analia Holliday on 05-30-2023 CO2 [Moles/Vol] 27.5 mmol/L 21.0-31.0 [facility] Chloride [Moles/volume] in S leobardo or PlasmaOrdered By: Analia Holliday on 05-30-2023 Chloride [Moles/Vol] 106 mmol/L 98-107 [facility] Cholesterol [Mass/volume] in Serum or PlasmaOrdered By: Analia Holliday on 05-30-2023 Cholesterol [Mass/Vol] 169 mg/dL 140-200 [facility] Comment on above: Chol less than 200 m g/dl low riskChol 201-239 mg/dl borderline riskChol 240 mg/dl and greater high risk Cholesterol in LDL Calc [Mas s/Vol]Ordered By: Analia Holliday on 05-30-2023 Cholesterol in LDL [Mass/Vol] 100 mg/dL 0-100 [facility] Comment on above: LDL ATP III CLASSIFI CATIONLDL less than 100 mg/dL OptimalLDL 100-129 mg/dL Near or above optimalLDL 130-159 mg/dL Borderline highLDL 160-189 mg/dL HighLDL greater than 189 mg/dL Very high Cholesterol in VLDL Calc [Ma ss/Vol]Ordered By: Analia Holliday on 05-30-2023 Cholesterol in VLDL [Mass/Vol] 8 mg/dL [facility] Creatinine [Mass/volume] in Serum or PlasmaOrdered By: Analia Holliday on 05-30-2023 Creatinine [Mass/Vol] 0.66 mg/dL 0.60-1.20 [facility] Eosinophils Auto (Bld) [#/Vo l]Ordered By: Analia Holliday on 05-30-2023 Eosinophils (Bld) [#/Vol] 0.2 10*3/uL 0.0-0.45 [facility] Eosinophils/100 WBC Auto (Bl d)Ordered By: Analia Holliday on 05-30-2023 Eosinophils/100 WBC (Bld) 3.8 % . [facility] Erythrocyte distribution wid th Auto (RBC) [Ratio]Ordered By: Analia Holliday on 05-30-2023 Erythrocyte distribution width (RBC) [Ratio] 12.3 % 11.9-15.3 [facility] Ferritin [Mass/volume] in Se rum or PlasmaOrdered By: Analia Holliday on 05-30-2023 Ferritin [Mass/Vol] 38.7 ng/mL 11.0-306.8 [facility] Folate [Mass/volume] in Seru m or PlasmaOrdered By: Analia Holliday on 05-30-2023 Folate [Mass/Vol] 23.0 ng/mL >5.9 [facility] Comment on above: Folate reference ran ge: >5.9 ng/mlThe WHO technical consultation on folate and vitamin [id number] has determined that folate concentrations lessthan 4 ng/ml are considered deficient. Globulin Calc (S) [Mass/Vol] Ordered By: Analia Holliday on 05-30-2023 Globulin (S) [Mass/Vol] 2.5 g/dL [facility] Glucose [Mass/volume] in Ser um or PlasmaOrdered By: Analia Holliday on 05-30-2023 Glucose [Mass/Vol] 89 mg/dL 70-100 [facility] Hematocrit Auto (Bld) [Volum e fraction]Ordered By: Analia Holliday on 05-30-2023 Hematocrit (Bld) [Volume fraction] 39.8 % 34.0-46.4 [facility] Hemoglobin [Mass/volume] in BloodOrdered By: Analia Holliday on 05-30-2023 Hemoglobin (Bld) [Mass/Vol] 13.6 g/dL 11.8-15.4 [facility] Iron [Mass/volume] in Serum or PlasmaOrdered By: Analia Holliday on 05-30-2023 Iron [Mass/Vol] 116 ug/dL 50-212 [facility] Iron binding capacity [Mass/ volume] in Serum or PlasmaOrdered By: Analia Holliday on 05-30-2023 Iron binding capacity [Mass/Vol] 349 ug/dL 255-450 [facility] Iron saturation [Mass Fracti on] in Serum or PlasmaOrdered By: Analia Holliday on 05-30-2023 Iron saturation [Mass fraction] 33.2 % 20-50 [facility] Leukocytes [#/volume] correc shena for nucleated erythrocytes in Blood by Automated counOrdered By: Analia Holliday on 05-30-2023 WBC corrected for nucl RBC Auto (Bld) [#/Vol] 5.0 10*3/uL 3.8-11.6 [facility] Lymphocytes Auto (Bld) [#/Vo l]Ordered By: Analia Holliday on 05-30-2023 Lymphocytes (Bld) [#/Vol] 2.0 10*3/uL 1.00-4.8 [facility] Lymphocytes/100 WBC Auto (Bl d)Ordered By: Analia Holliday on 05-30-2023 Lymphocytes/100 WBC (Bld) 39.3 % . [facility] MCH Auto (RBC) [Entitic mass ]Ordered By: Analia Holliday on 05-30-2023 MCH (RBC) [Entitic mass] 31.6 pg 24.7-34.3 [facility] MCHC Auto (RBC) [Mass/Vol]Or dered By: Analia Holliday on 05-30-2023 MCHC (RBC) [Mass/Vol] 34.1 g/dL 32.0-35.0 [facility] MCV Auto (RBC) [Entitic vol] Ordered By: Analia Holliady on 05-30-2023 MCV (RBC) [Entitic vol] 92.6 fL 80-100 [facility] Monocytes Auto (Bld) [#/Vol] Ordered By: Analia Holliday on 05-30-2023 Monocytes (Bld) [#/Vol] 0.5 10*3/uL 0.0-0.8 [facility] Monocytes/100 WBC Auto (Bld) Ordered By: Analia Holliday on 05-30-2023 Monocytes/100 WBC (Bld) 9.5 % . [facility] Neutrophils Auto (Bld) [#/Vo l]Ordered By: Analia Holliday on 05-30-2023 Neutrophils (Bld) [#/Vol] 2.3 10*3/uL 1.8-7.7 [facility] Neutrophils/100 WBC Auto (Bl d)Ordered By: Analia Holliday on 05-30-2023 Neutrophils/100 WBC (Bld) 46.6 % . [facility] No Panel InformationOrdered By: Analia Holliday on 05-30-2023 Estimated GFR (CKD-EPI) > 60.0 mL/Min [facility]acy Creatinine Clearance (Chem N/A [facility] Nucleated erythrocytes [Pres ence] in Blood by Automated countOrdered By: Analia Holliday on 05-30-2023 Nucleated RBC Auto Ql (Bld) 0.1 /100{WBC} 0-0.5 [facility] Platelet mean volume Auto (B ld) [Entitic vol]Ordered By: Analia Holliday on 05-30-2023 Platelet mean volume (Bld) [Entitic vol] 9.7 fL 6.3-10.7 [facility] Platelets Auto (Bld) [#/Vol] Ordered By: Analia Holliday on 05-30-2023 Platelets (Bld) [#/Vol] 198 10*3/uL 150-450 [facility] Potassium [Moles/volume] in Serum or PlasmaOrdered By: Analia Holliday on 05-30-2023 Potassium [Moles/Vol] 4.2 mmol/L 3.5-5.1 [facility] Protein [Mass/volume] in Ser um or PlasmaOrdered By: Analia Holliday on 05-30-2023 Protein [Mass/Vol] 7.1 g/dL 6.4-8.9 [facility] RBC Auto (Bld) [#/Vol]Ordere d By: Analia Holliday on 05-30-2023 RBC (Bld) [#/Vol] 4.30 10*6/uL 3.60-5.00 [facility] Serum or plasma albumin/glob ulin mass ratioOrdered By: Analia Holliday on 05-30-2023 Albumin/Globulin [Mass ratio] 1.8 {ratio} [facility] Serum or plasma anion gap de terminationOrdered By: Analia Holliday on 05-30-2023 Anion gap [Moles/Vol] 8.7 mmol/L 6.0-15.0 [facility] Serum or plasma high density lipoprotein (HDL) cholesterol measurementOrdered By: Analia Holliday on 05-30-2023 Cholesterol in HDL [Mass/Vol] 61 mg/dL 23-92 [facility] Comment on above: HDL CHOL ATP-III CLA SSIFICATION Cardiovascular RiskHDL > or equal to 60 mg/dL LOWHDL < 40 mg/dL HIGH Serum or plasma total choles terol/high density lipoprotein (HDL) cholesterol mass ratOrdered By: Analia Holliday on 05-30-2023 Cholesterol.total/Cho lesterol in HDL [Mass ratio] 2.8 {ratio} <5.0 [facility] Sodium [Moles/volume] in Ser um or PlasmaOrdered By: Analia Holliday on 05-30-2023 Sodium [Moles/Vol] 138 mmol/L 136-145 [facility] Thyrotropin [Units/volume] i n Serum or PlasmaOrdered By: Analia Holliday on 05-30-2023 TSH Qn 0.95 m[IU]/L 0.45-5.33 [facility] Transferrin [Mass/volume] in Serum or PlasmaOrdered By: Analia Holliday on 05-30-2023 Transferrin [Mass/Vol] 249 mg/dL 203-362 [facility] Triglyceride [Mass/volume] i n Serum or PlasmaOrdered By: Analia Holliday on 05-30-2023 Triglyceride [Mass/Vol] 42 mg/dL 0-149 [facility] Comment on above: TRIG ATP III CLASSIF ICATIONTRIG less than 150 mg/dL NormalTRIG 150-199 mg/dL Borderline highTRIG 200-500 mg/dL High TRIG greater than 500 mg/dL Very highStandard traceable to the Center for Disease Conrtrol and Prevention (CDC) test method. Urea nitrogen [Mass/volume] in Serum or PlasmaOrdered By: Analia Holliday on 05-30-2023 Urea nitrogen [Mass/Vol] 12 mg/dL 7-25 [facility] Vitamin B12 ser/plasOrdered By: Analia Holliday on 05-30-2023 Cobalamin (Vitamin B12) [Mass/Vol] 630 pg/mL 180-914 [facility] Vitamin D+Metabolites [Mass/ volume] in Serum or PlasmaOrdered By: Analia Hollidya on 05-30-2023 Vitamin D+Metabolites [Mass/Vol] 27.7 ng/mL 30-100 [facility] Comment on above: VITAMIN D STATUS 25( [place])VITAMIN D RANGE (ng/mL) Deficient <20 Insufficient 20 to <30Sufficient 30 to 100Reference: Chichi MF,Manpreet SOOD, Doe MIKE, et al. Evaluation,treatment, and prevention of vitamin D deficiency; an Endocrine Society clinical practice guideline. JCEM. 2010; 96(7):1911-30. WBC Auto (Bld) [#/Vol]Ordere d By: Analia Holliday on 05-30-2023 WBC (Bld) [#/Vol] 5.0 10*3/uL 3.8-11.6 [facility] ALLIED HEALTHon 04-13-2023 ALLIED HEALTH HNO ID: [id number] Author: Yessi Adkins, agent producer Service: Radiology Author Type: Pharmacy Aide Type: Allied Health Filed: 04/13/2023 3:14 PM [...] Exam(s) Completed: Body: Pancreas/Biliary SIGNATURE: Yessi Adkins agent producer PATIENT NAME: Chioma Alonzo DATE: April 13, 2023 TIME: 3:13 PM Normal [facility] MR Abdomen WO and W contrast Eddie 04-13-2023 IMPRESSION: No MR findings of acute or chronic pancreatitis. No pancreatic divisum. Warehouse Stocker: [facility] Transcribe Date/Time: Apr 13 2023 3:30P Dictated by : ERIC VILLAR MD This examination was interpreted and the report reviewed and electronically signed by: ERIC VILLAR MD on Apr 13 2023 3:50PM [facility] * * *Final Report* * * DATE OF EXAM: Apr 13 2023 3:23PM [facility] 0689 - MRI ABDOMEN WO/W IVCON / [...] ascites. Osseous structures: No aggressive osseous lesions. [facility] Provider, Letty Best - 04/13/2023 * * *Final Report* * * DATE OF EXAM: Apr 13 2023 3:23PM [facility] 0689 - MRI ABDOMEN WO/W IVCON / [...] acute or chronic pancreatitis. No pancreatic divisum. [facility] Transcribe Date/Time: Apr 13 2023 3:30P Dictated by : ERIC VILLAR MD This examination was interpreted and the report reviewed and electronically signed by: ERIC VILLAR MD on Apr 13 2023 3:50PM EST [facility] Radiology Study observation (narrative) [facility] MR Abdomen WO and W contrast IVOrdered By: [facility] Provider on 04-13-2023 [facility] MRI ABDOMEN WO/W IVCONon 09- 22-2023 MRI ABDOMEN WO/W IVCON * * *Final Report* * * DATE OF EXAM: Apr 13 2023 3:23PM [facility] 0689 - MRI ABDOMEN WO/W IVCON / [...] acute or chronic pancreatitis. No pancreatic divisum. Warehouse Stocker: [facility] Transcribe Date/Time: Apr 13 2023 3:30P Dictated by : ERIC VILLAR MD This examination was interpreted and the report reviewed and electronically signed by: ERIC VILLAR MD on Apr 13 2023 3:50PM EST [id number] [facility] 04-12-2023 [facility] Telephone (RGF[facility]) ----- CHIOMA ALONZO Roland ([id number]) 2000 F Date Time Provider Department 04/12/23 MARIE ALTAMIRANO (SHOAIB) RGFV During your visit today, we recorded the [...] mouth three times daily with meals. - eotpnx-bopudknt-urtczlk (ZENPEP) 40,000-126,000- 168,000 unit delayed release capsule [...] 12/08/2022 Photosensitivity [L56.8] 12/08/2022 Encounter Status:Closed by MARIE SIMPSON on 04/12/23 Normal [facility] NM HEPATOBILIARY SCAN W EFon 12-01-2022 [...] DARA CEDILLO Date: 2022-12-01 13:53 Normal [facility] OVA AND PARASITE EXAMINATION on 11-13-2022 Ova + Parasite Exam Final report Normal [facility] Comment on above: Result Comment: Thes e results were obtained using wet preparation(s) and trichrome stained smear. This test does not include testing for Cryptosporidium parvum, Cyclospora, or Microsporidia. Performed By: #### O VAPE #### [facility] [address] [address] [address] Timi Prater Result 1 Comment Normal [facility] Comment on above: Result Comment: No o va, cysts, or parasites seen. . One negative specimen does not rule out the possibility of a parasitic infection. Performed By: #### O VAPE #### [facility] [address] [address] [address] Timi Prater AMYLASEon 11-04-2022 Amylase [Catalytic activity/Vol] 39 U/L Normal 25-115 [facility] Comment on above: Performed By: #### O VAPE #### [facility] [address] [address] [address] Timi Prater CBC AUTO DIFFon 11-04-2022 BASO # 0.1 103/ul Normal 0.0-0.1 [facility] Comment on above: Performed By: #### C ALPOO #### [facility] [address] [address] [address] Timi Prater Basophils/100 WBC (Bld) 1.1 % Normal 0.2-2.0 [facility] Comment on above: Performed By: #### C ALPOO #### [facility] [address] [address] [address] Timi Prater EO # 0.2 103/ul Normal 0.0-0.7 [facility] Comment on above: Performed By: #### C ALPOO #### [facility] [address] [place] [address] Dr. Timi Prater Eosinophils/100 WBC (Bld) 3.5 % Normal 0.9-7.0 [facility] Comment on above: Performed By: #### C ALPOO #### [facility] [address] [place] [address] Dr. Timi Prater Erythrocyte distribution width (RBC) [Ratio] 11.5 % Normal 11.0-15.0 [facility] Comment on above: Performed By: #### C ALPOO #### [facility] [address] [place] [address] Dr. Timi Prater Hematocrit (Bld) [Volume fraction] 39.8 % Normal 36.0-48.0 [facility] Comment on above: Performed By: #### C ALPOO #### [facility] [address] [place] [address] Dr. Timi Prater Hemoglobin (Bld) [Mass/Vol] 13.7 g/dL Normal 12.0-16.0 [facility] Comment on above: Performed By: #### C ALPOO #### [facility] [address] [place] [address] Dr. Timi Prater IG # 0.01 10e3/ul Normal 0.00-0.03 [facility] Comment on above: Performed By: #### C ALPOO #### [facility] [address] [place] [address] Dr. Timi Prater IG % 0.2 % Normal 0.0-0.5 [facility] Comment on above: Performed By: #### C ALPOO #### [facility] [address] [address] [address] Timi Prater LYMPH # 2.4 103/ul Normal 1.2-3.8 [facility] Comment on above: Performed By: #### C ALPOO #### [facility] [address] [address] [address] Timi Prater Lymphocytes/100 WBC (Bld) 53.1 % Normal 20.5-60.0 [facility] Comment on above: Performed By: #### C ALPOO #### [facility] [address] [place] [address] Dr. Timi Prater MANUAL DIFF REQ NO Normal [facility] Comment on above: Performed By: #### C ALPOO #### [facility] [address] [place] [address] Dr. Timi Prater MCH (RBC) [Entitic mass] 31.6 pg Normal 26.7-34.0 [facility] Comment on above: Performed By: #### C ALPOO #### [facility] [address] [place] [address] Dr. Timi Prater MCHC (RBC) [Mass/Vol] 34.4 g/dL Normal 29.9-35.2 [facility] Comment on above: Performed By: #### C ALPOO #### [facility] [address] [place] [address] Dr. Timi Prater MCV (RBC) [Entitic vol] 91.7 fL Normal 81.0-99.0 [facility] Comment on above: Performed By: #### C ALPOO #### [facility] [address] [place] [address] Dr. Timi Prater MONO # 0.4 103/ul Normal 0.3-0.8 [facility] Comment on above: Performed By: #### C ALPOO #### [facility] [address] [place] [address] Dr. Timi Prater Monocytes/100 WBC (Bld) 8.1 % Normal 1.7-12.0 [facility] Comment on above: Performed By: #### C ALPOO #### [facility] [address] [place] [address] Dr. Timi Prater NEUT # 1.6 103/ul Normal 1.4-6.5 [facility] Comment on above: Performed By: #### C ALPOO #### [facility] [address] [place] [address] Dr. Timi Prater Neutrophils/100 WBC (Bld) 34.0 % Critically low 43.0-75.0 [facility] Comment on above: Performed By: #### C ALPOO #### [facility] [address] [place] [address] Dr. Timi Prater Platelet mean volume (Bld) [Entitic vol] 10.7 fL Normal 9.5-13.5 [facility] Comment on above: Performed By: #### C ALPOO #### [facility] [address] [place] [address] Dr. Timi Prater PLT 192 103/ul Normal 150-450 [facility] Comment on above: Performed By: #### C ALPOO #### [facility] [address] [place] [address] Dr. Timi Prater RBC 4.34 106/ul Normal 4.20-5.40 [facility] Comment on above: Performed By: #### C ALPOO #### [facility] [address] [place] [address] Dr. Timi Prater WBC 4.6 103/ul Normal 4.0-11.0 [facility] Comment on above: Performed By: #### C ALPOO #### [facility] [address] [place] [address] Dr. Timi Prater GI PANEL (PCR)on 11-04-2022 Adenovirus F 40/41 Not detected Normal NOT DETECTED [facility] Comment on above: Performed By: #### C DIFPOC #### [facility] [address] [place] [address] Dr. Timi Prater Astrovirus Not detected Normal NOT DETECTED [facility] Comment on above: Performed By: #### C DIFPOC #### [facility] [address] [place] [address] Dr. Timi Guevara. Diff toxin A/B Not detected Normal NOT DETECTED [facility] Comment on above: Performed By: #### C DIFPOC #### [facility] [address] [place] [address] Dr. Timi Prater Campylobacter Not detected Normal NOT DETECTED [facility] Comment on above: Performed By: #### C DIFPOC #### [facility] [address] [place] [address] Dr. Timi Prater Cryptosporidium Not detected Normal NOT DETECTED [facility] Comment on above: Performed By: #### C DIFPOC #### [facility] [address] [place] [address] Dr. Timi Prater Cyclos. Cayetanensis Not detected Normal NOT DETECTED [facility] Comment on above: Performed By: #### C DIFPOC #### [facility] [address] [place] [address] Dr. Timi Prater E. Coli O157 Not Applicable Normal Not Applicable [facility] Comment on above: Performed By: #### C DIFPOC #### [facility] [address] [place] [address] Dr. Timi Prater E. histolytica Not detected Normal NOT DETECTED [facility] Comment on above: Performed By: #### C DIFPOC #### [facility] [address] [place] [address] Dr. Timi Prater EAEC Not detected Normal NOT DETECTED [facility] Comment on above: Performed By: #### C DIFPOC #### [facility] [address] [place] [address] Dr. Timi Prater EIEC Not detected Normal NOT DETECTED [facility] Comment on above: Performed By: #### C DIFPOC #### [facility] [address] [place] [address] Dr. Timi Prater EPEC Not detected Normal NOT DETECTED [facility] Comment on above: Performed By: #### C DIFPOC #### [facility] [address] [place] [address] Dr. Timi Prater ETEC Not detected Normal NOT DETECTED [facility] Comment on above: Performed By: #### C DIFPOC #### [facility] [address] [address] [address] Timi Laura Lamblia Not detected Normal NOT DETECTED [facility] Comment on above: Performed By: #### C DIFPOC #### [facility] [address] [address] [address] Timi WHARTON CONTROLS PASSED Normal [facility] Comment on above: Performed By: #### C DIFPOC #### [facility] [address] [address] [address] Timi HOWARD HEADER GI PANEL BACTERIA Normal [facility] Comment on above: Performed By: #### C DIFPOC #### [facility] [address] [place] [address] Dr. Timi FAJARDO ECOLI GI PANEL DIARRHEAGEN IC E.COLI / SHIGELLA Normal [facility] Comment on above: Performed By: #### C DIFPOC #### [facility] [address] [place] [address] Dr. Timi FAJARDO INFO SEE BELOW Normal [facility] Comment on above: Result Comment: EAEC - Enteroaggregative E. Coli EPEC- Enteropathogenic E. Coli ETEC- Enterotoxigenic E. Coli lt/st STEC- Shigella-like toxin-producing E. Coli stx1/stx2 EIEC- Shigella/Enteroinvasive E. Coli Performed By: #### C DIFPOC #### [facility] [address] [place] [address] Dr. Timi FAJARDO PARASITES GI PANEL PARASITES Normal [facility] Comment on above: Performed By: #### C DIFPOC #### [facility] [address] [address] [address] Timi FAJARDO VIRUS GI PANEL VIRUSES Normal [facility] Comment on above: Performed By: #### C DIFPOC #### [facility] [address] [place] [address] Dr. Timi Prater Norovirus GI/GII Not detected Normal NOT DETECTED [facility] Comment on above: Performed By: #### C DIFPOC #### [facility] [address] [place] [address] Dr. Timi Prater P. Shigelloides Not detected Normal NOT DETECTED [facility] Comment on above: Performed By: #### C DIFPOC #### [facility] [address] [place] [address] Dr. Timi Prater Rotavirus A Not detected Normal NOT DETECTED [facility] Comment on above: Performed By: #### C DIFPOC #### [facility] [address] [place] [address] Dr. Timi Prater Salmonella Not detected Normal NOT DETECTED [facility] Comment on above: Performed By: #### C DIFPOC #### [facility] [address] [place] [address] Dr. Timi Prater Sapovirus Not detected Normal NOT DETECTED [facility] Comment on above: Performed By: #### C DIFPOC #### [facility] [address] [place] [address] Dr. Timi Prater STEC Not detected Normal NOT DETECTED [facility] Comment on above: Performed By: #### C DIFPOC #### [facility] [address] [place] [address] Dr. Timi Prater Vibrio Not detected Normal NOT DETECTED [facility] Comment on above: Performed By: #### C DIFPOC #### [facility] [address] [place] [address] Dr. Timi Prater Vibrio Cholera Not detected Normal NOT DETECTED [facility] Comment on above: Performed By: #### C DIFPOC #### [facility] [address] [place] [address] Dr. Timi Prater Y. Enterocolitica Not detected Normal NOT DETECTED [facility] Comment on above: Performed By: #### C DIFPOC #### [facility] [address] [place] [address] Dr. Timi Prater LIPASEon 11-04-2022 Lipase [Catalytic activity/Vol] 88.0 U/L Normal 73.0-393.0 [facility] Comment on above: Performed By: #### O VAPE #### [facility] [address] [place] [address] Dr. Timi Prater OCC BLD IMMUNO SCREENon 10-21 OCCULT BLOOD Negative Normal NEGATIVE [facility] Comment on above: Performed By: #### C ALPOO #### [facility] [address] [place] [address] Dr. Timi Prater PROF 14(COMP METB)on 023 Albumin [Mass/Vol] 4.2 g/dL Normal 3.4-5.0 [facility] Comment on above: Performed By: #### C ALPOO #### [facility] [address] [place] [address] Dr. Timi Prater Albumin/Globulin [Mass ratio] 1.2 {ratio} Normal [facility] Comment on above: Performed By: #### C ALPOO #### [facility] [address] [place] [address] Dr. Timi Prater ALP [Catalytic activity/Vol] 55 U/L Normal 46-116 [facility] Comment on above: Performed By: #### C ALPOO #### [facility] [address] [place] [address] Dr. Timi Prater ALT [Catalytic activity/Vol] 14 U/L Normal 14-59 [facility] Comment on above: Performed By: #### C ALPOO #### [facility] [address] [place] [address] Dr. Timi Prater Anion gap [Moles/Vol] 11.9 mmol/L Normal [facility] Comment on above: Performed By: #### C ALPOO #### [facility] [address] [place] [address] Dr. Timi Prater AST [Catalytic activity/Vol] 13 U/L Critically low 15-37 [facility] Comment on above: Performed By: #### C ALPOO #### [facility] [address] [place] [address] Dr. Timi Prater Bilirubin [Mass/Vol] 0.6 mg/dL Normal 0.2-1.0 [facility] Comment on above: Performed By: #### C ALPOO #### [facility] [address] [place] [address] Dr. Timi Prater Calcium [Mass/Vol] 9.4 mg/dL Normal 8.5-10.1 [facility] Comment on above: Performed By: #### C ALPOO #### [facility] [address] [place] [address] Dr. Timi Prater Chloride [Moles/Vol] 104 mmol/L Normal 98-107 [facility] Comment on above: Performed By: #### C ALPOO #### [facility] [address] [place] [address] Dr. Timi Prater CO2 [Moles/Vol] 26.6 mmol/L Normal 21.0-32.0 [facility] Comment on above: Performed By: #### C ALPOO #### [facility] [address] [place] [address] Dr. Timi Prater Creatinine [Mass/Vol] 0.85 mg/dL Normal 0.55-1.02 [facility] Comment on above: Performed By: #### C ALPOO #### [facility] [address] [place] [address] Dr. Timi Prater EGFR-AF SLOVENIAN >60 Normal >=60 [facility] Comment on above: Performed By: #### C ALPOO #### [facility] [address] [place] [address] Dr. Timi Prater EGFR-NON AF SLOVENIAN >60 Normal >=60 [facility] Comment on above: Performed By: #### C ALPOO #### [facility] [address] [place] [address] Dr. Timi Prater Globulin (S) [Mass/Vol] 3.6 g/dL Normal [facility] Comment on above: Performed By: #### C ALPOO #### [facility] [address] [place] [address] Dr. Timi Prater Glucose [Mass/Vol] 100 mg/dL Normal 74-106 [facility] Comment on above: Performed By: #### C ALPOO #### [facility] [address] [address] [address] Timi Prater Potassium [Moles/Vol] 3.5 mmol/L Normal 3.5-5.1 [facility] Comment on above: Performed By: #### C ALPOO #### [facility] [address] [address] [address] Timi Prater Protein [Mass/Vol] 7.8 g/dL Normal 6.4-8.2 [facility] Comment on above: Performed By: #### C ALPOO #### [facility] [address] [address] [address] Timi Prater Sodium [Moles/Vol] 139 mmol/L Normal 136-145 [facility] Comment on above: Performed By: #### C ALPOO #### [facility] [address] [place] [address] Dr. Timi Prater Urea nitrogen [Mass/Vol] 13.0 mg/dL Normal 7.0-18.0 [facility] Comment on above: Performed By: #### C ALPOO #### [facility] [address] [address] [address] Timi Prater Urea nitrogen/Creatinine [Mass ratio] 15.3 mg/mg Normal [facility] Comment on above: Performed By: #### C ALPOO #### [facility] [address] [place] [address] Dr. Timi Prater C. DIFF PCRon 11-03-2022 C. DIFFICILE PCR Negative Normal NEGATIVE [facility] Comment on above: Performed By: #### T HYRABS #### [facility] [address] [place] [address] Dr. Timi Prater PANCREATIC ELASTASE FECALon 10-31-2022 Pancreatic Elastase, Fecal 253 ug Elast./g Normal >200 [facility] Comment on above: Result Comment: Tia re Pancreatic Insufficiency: <100 Moderate Pancreatic Insufficiency: 100 - 200 Normal: >200 Performed By: #### C ALPOO #### [facility] [address] [place] [address] Dr. Timi Prater US SINGLE QUAD RT [...] DARA SAVAGE Date: 2022-10-31 08:39 Normal [facility] CBC AUTO DIFFon 10-20-2022 BASO # 0.1 103/ul Normal 0.0-0.1 [facility] Comment on above: Performed By: #### C BC #### [facility] [address] [place] [address] Dr. Timi Prater Basophils/100 WBC (Bld) 0.9 % Normal 0.2-2.0 [facility] Comment on above: Performed By: #### C BC #### [facility] [address] [place] [address] Dr. Timi Prater EO # 0.1 103/ul Normal 0.0-0.7 [facility] Comment on above: Performed By: #### C BC #### [facility] [address] [place] [address] Dr. Timi Prater Eosinophils/100 WBC (Bld) 2.6 % Normal 0.9-7.0 [facility] Comment on above: Performed By: #### C BC #### [facility] [address] [place] [address] Dr. Timi Prater Erythrocyte distribution width (RBC) [Ratio] 11.9 % Normal 11.0-15.0 [facility] Comment on above: Performed By: #### C BC #### [facility] [address] [place] [address] Dr. Timi Prater Hematocrit (Bld) [Volume fraction] 41.0 % Normal 36.0-48.0 [facility] Comment on above: Performed By: #### C BC #### [facility] [address] [place] [address] Dr. Timi Prater Hemoglobin (Bld) [Mass/Vol] 14.2 g/dL Normal 12.0-16.0 [facility] Comment on above: Performed By: #### C BC #### [facility] [address] [place] [address] Dr. Timi Prater IG # 0.02 10e3/ul Normal 0.00-0.03 [facility] Comment on above: Performed By: #### C BC #### [facility] [address] [place] [address] Dr. Timi Prater IG % 0.4 % Normal 0.0-0.5 [facility] Comment on above: Performed By: #### C BC #### [facility] [address] [place] [address] Dr. Timi Prater LYMPH # 1.7 103/ul Normal 1.2-3.8 [facility] Comment on above: Performed By: #### C BC #### [facility] [address] [place] [address] Dr. Timi Prater Lymphocytes/100 WBC (Bld) 31.2 % Normal 20.5-60.0 [facility] Comment on above: Performed By: #### C BC #### [facility] [address] [place] [address] Dr. Timi Prater MANUAL DIFF REQ NO Normal [facility] Comment on above: Performed By: #### C BC #### [facility] [address] [place] [address] Dr. Timi Prater MCH (RBC) [Entitic mass] 31.7 pg Normal 26.7-34.0 [facility] Comment on above: Performed By: #### C BC #### [facility] [address] [place] [address] Dr. Timi Prater MCHC (RBC) [Mass/Vol] 34.6 g/dL Normal 29.9-35.2 [facility] Comment on above: Performed By: #### C BC #### [facility] [address] [place] [address] Dr. Timi Prater MCV (RBC) [Entitic vol] 91.5 fL Normal 81.0-99.0 [facility] Comment on above: Performed By: #### C BC #### [facility] [address] [place] [address] Dr. Timi Prater MONO # 0.5 103/ul Normal 0.3-0.8 [facility] Comment on above: Performed By: #### C BC #### [facility] [address] [place] [address] Dr. Timi Prater Monocytes/100 WBC (Bld) 8.7 % Normal 1.7-12.0 [facility] Comment on above: Performed By: #### C BC #### [facility] [address] [place] [address] Dr. Timi Prater NEUT # 3.1 103/ul Normal 1.4-6.5 [facility] Comment on above: Performed By: #### C BC #### [facility] [address] [place] [address] Dr. Timi Prater Neutrophils/100 WBC (Bld) 56.2 % Normal 43.0-75.0 [facility] Comment on above: Performed By: #### C BC #### [facility] [address] [place] [address] Dr. Timi Prater Platelet mean volume (Bld) [Entitic vol] 10.8 fL Normal 9.5-13.5 [facility] Comment on above: Performed By: #### C BC #### [facility] [address] [place] [address] Dr. Timi Prater PLT 219 103/ul Normal 150-450 [facility] Comment on above: Performed By: #### C BC #### [facility] [address] [place] [address] Dr. Timi Prater RBC 4.48 106/ul Normal 4.20-5.40 [facility] Comment on above: Performed By: #### C BC #### [facility] [address] [place] [address] Dr. Timi Prater WBC 5.4 103/ul Normal 4.0-11.0 [facility] Comment on above: Performed By: #### C BC #### [facility] [address] [place] [address] Dr. Timi Prater PROF 14(COMP METB)on 023 Albumin [Mass/Vol] 4.5 g/dL Normal 3.4-5.0 [facility] Comment on above: Performed By: #### C DIFPOC #### [facility] [address] [place] [address] Dr. Timi Prater Albumin/Globulin [Mass ratio] 1.5 {ratio} Normal [facility] Comment on above: Performed By: #### C DIFPOC #### [facility] [address] [place] [address] Dr. Timi Prater ALP [Catalytic activity/Vol] 56 U/L Normal 46-116 [facility] Comment on above: Performed By: #### C DIFPOC #### [facility] [address] [place] [address] Dr. Timi Prater ALT [Catalytic activity/Vol] 16 U/L Normal 14-59 [facility] Comment on above: Performed By: #### C DIFPOC #### [facility] [address] [place] [address] Dr. Timi Prater Anion gap [Moles/Vol] 15.5 mmol/L Normal [facility] Comment on above: Performed By: #### C DIFPOC #### [facility] [address] [place] [address] Dr. Timi Prater AST [Catalytic activity/Vol] 13 U/L Critically low 15-37 [facility] Comment on above: Performed By: #### C DIFPOC #### [facility] [address] [place] [address] Dr. Timi Prater Bilirubin [Mass/Vol] 0.6 mg/dL Normal 0.2-1.0 [facility] Comment on above: Performed By: #### C DIFPOC #### [facility] [address] [place] [address] Dr. Timi Prater Calcium [Mass/Vol] 9.3 mg/dL Normal 8.5-10.1 [facility] Comment on above: Performed By: #### C DIFPOC #### [facility] [address] [place] [address] Dr. Timi Prater Chloride [Moles/Vol] 104 mmol/L Normal 98-107 [facility] Comment on above: Performed By: #### C DIFPOC #### [facility] [address] [place] [address] Dr. Timi Prater CO2 [Moles/Vol] 25.7 mmol/L Normal 21.0-32.0 [facility] Comment on above: Performed By: #### C DIFPOC #### [facility] [address] [place] [address] Dr. Timi Prater Creatinine [Mass/Vol] 0.71 mg/dL Normal 0.55-1.02 [facility] Comment on above: Performed By: #### C DIFPOC #### [facility] [address] [place] [address] Dr. Timi Prater EGFR-AF SLOVENIAN >60 Normal >=60 [facility] Comment on above: Performed By: #### C DIFPOC #### [facility] [address] [place] [address] Dr. Timi Prater EGFR-NON AF SLOVENIAN >60 Normal >=60 [facility] Comment on above: Performed By: #### C DIFPOC #### [facility] [address] [place] [address] Dr. Timi Prater Globulin (S) [Mass/Vol] 3.1 g/dL Normal [facility] Comment on above: Performed By: #### C DIFPOC #### [facility] [address] [place] [address] Dr. Timi Prater Glucose [Mass/Vol] 77 mg/dL Normal 74-106 [facility] Comment on above: Performed By: #### C DIFPOC #### [facility] [address] [place] [address] Dr. Timi Prater Potassium [Moles/Vol] 4.2 mmol/L Normal 3.5-5.1 [facility] Comment on above: Performed By: #### C DIFPOC #### [facility] [address] [place] [address] Dr. Timi Prater Protein [Mass/Vol] 7.6 g/dL Normal 6.4-8.2 [facility] Comment on above: Performed By: #### C DIFPOC #### [facility] [address] [place] [address] Dr. Timi Prater Sodium [Moles/Vol] 141 mmol/L Normal 136-145 [facility] Comment on above: Performed By: #### C DIFPOC #### [facility] [address] [place] [address] Dr. Timi Prater Urea nitrogen [Mass/Vol] 15.0 mg/dL Normal 7.0-18.0 [facility] Comment on above: Performed By: #### C DIFPOC #### [facility] [address] [place] [address] Dr. Timi Prater Urea nitrogen/Creatinine [Mass ratio] 21.1 mg/mg Normal [facility] Comment on above: Performed By: #### C DIFPOC #### [facility] [address] [place] [address] Dr. Timi Prater LIPASEon 10-19-2022 Lipase [Catalytic activity/Vol] 117.0 U/L Normal 73.0-393.0 [facility] Comment on above: Performed By: #### C DIFPOC #### [facility] [address] [place] [address] ABD/PELV W CONon 10-19-19 CT ABD/PELV [...] AZAEL GRIFFIN Date: 2022-10-18 11:02 Normal [facility] CORTISOL 24HR URINEon 2022 Cortisol,F,ug/24hr,U 19 ug/24 hr Normal 6-42 [facility] Comment on above: Performed By: #### C ORT24 #### [facility] [address] [address] [address] Timi Prater Cortisol,F,ug/L,U 18 ug/L Normal Undefined [facility] Comment on above: Performed By: #### C ORT24 #### [facility] [address] [place] [address] Dr. Timi Prater CLOSTRIDIUM DIFFICILE PCRon 10-06-2022 C difficile Toxin Gene RUCHI Negative Normal Negative [facility] Comment on above: Performed By: #### C ALPOO #### [facility] [address] [place] [address] Dr. Timi Prater REVERSE T3on 10-01-2022 Reverse T3, Serum 19.3 ng/dL Normal 9.2-24.1 [facility] Comment on above: Result Comment: This test was developed and its performance characteristics determined by [employer] It has not been cleared or approved by the Food and Drug Administration. Performed By: #### O VAPE #### [facility] [address] [place] [address] Dr. Timi Prater C. DIFF PCRon 09-28-2022 C. DIFFICILE PCR Negative Normal NEGATIVE [facility] Comment on above: Performed By: #### C CHLOÉPOC #### [facility] [address] [place] [address] Dr. Timi Prater FREE T4on 09-26-2022 Free T4 [Mass/Vol] 0.89 ng/dL Normal 0.76-1.46 [facility] Comment on above: Performed By: #### Yisel MONTOYA #### [facility] [address] [place] [address] Dr. Timi Prater CORTISOL Mely 09-25-2022 Cortisol AM 23.5 ug/dL Critically high 6.2-19.4 [facility] Comment on above: Performed By: #### C CHLOÉPOC #### [facility] [address] [place] [address] Dr. Timi Prater THYROID ANTIBODIESon 023 Thyroglobulin Antibody <1.0 Normal 0.0-0.9 [facility] Comment on above: Result Comment: Thyr oglobulin Antibody measured by [employer] Methodology Performed By: #### T JAN #### [facility] [address] [place] [address] Dr. Timi Prater Thyroid Peroxidase (TPO) Ab 10 IU/mL Normal 0-34 [facility] Comment on above: Performed By: #### T HYRABS #### [facility] [address] [place] [address] Dr. Timi Prater T3, TOTAL (TRIIODOTHYRONINE) on 09-23-2022 T3, TOTAL 108 ng/dL Normal 71-180 [facility] Comment on above: Performed By: #### O VAPE #### [facility] [address] [place] [address] Dr. Timi Prater FREE T3on 09-22-2022 FREE T3 2.65 pg/mlL Normal 2.18-3.98 [facility] Comment on above: Performed By: #### C DIFPOC #### [facility] [address] [place] [address] Dr. Timi Prater TSHon 09-22-2022 TSH 1.156 uIU/mL Normal 0.358-3.740 [facility] Comment on above: Performed By: #### C DIFPOC #### [facility] [address] [place] [address] Dr. Timi Prater HELICOBACTER PYLORI AG STOOL on 09-14-2022 H. pylori Stool Ag, EIA Negative Normal Negative [facility] Comment on above: Performed By: #### H PYLORI #### [facility] [address] [place] [address] Dr. Timi Prater C. DIFF PCRon 09-12-2022 C. DIFFICILE PCR Negative Normal NEGATIVE [facility] Comment on above: Performed By: #### C DIFPOC #### [facility] [address] [place] [address] Dr. Timi Prater STOOL CULTUREon 09-03-2022 Campylobacter Culture Final report Normal [facility] Comment on above: Performed By: #### O VAPE #### [facility] [address] [place] [address] Dr. Timi Prater E coli Shiga Toxin EIA Negative Normal Negative [facility] Comment on above: Performed By: #### O VAPE #### [facility] [address] [place] [address] Dr. Timi Prater Result 1 Comment Normal [facility] Comment on above: Result Comment: No S almonella or Shigella recovered. Performed By: #### O VAPE #### [facility] [address] [address] [address] Timi Prater Result Comment: No C ampylobacter species isolated. Salmonella/Shigella Screen Final report Normal [facility] Comment on above: Performed By: #### O VAPE #### [facility] [address] [address] [address] Timi Prater CALPROTECTIN, FECALon 2022 Calprotectin, Fecal <16 Normal 0-120 [facility] Comment on above: Result Comment: Conc entration Interpretation Follow-Up <16 - 50 ug/g Normal None >50 -120 ug/g Borderline Re-evaluate in 4-6 weeks >120 ug/g Abnormal Repeat as clinically indicated Performed By: #### C ALPOO #### [facility] [address] [place] [address] Dr. Timi Prater C. DIFF PCRon 08-30-2022 C. DIFFICILE PCR Negative Normal NEGATIVE [facility] Comment on above: Performed By: #### O VAPE #### [facility] [address] [address] [address] Timi Prater CLOSTRIDIUM DIFFICILE PCRon 08-26-2022 C difficile Toxin Gene RUCHI Negative Normal Negative [facility] Comment on above: Performed By: #### C ALPOO #### [facility] [address] [place] [address] Dr. Timi Prater ER URINE PROFILEon 3 Bilirubin Ql (U) Negative Normal NEGATIVE [facility] Comment on above: Performed By: #### T HYRABS #### [facility] [address] [address] [address] Timi Prater Clarity (U) CLEAR Normal CLEAR [facility] Comment on above: Performed By: #### T HYRABS #### [facility] [address] [place] [address] Dr. Timi Prater Color (U) LT. YELLOW Normal YELLOW [facility] Comment on above: Performed By: #### T HYRABS #### [facility] [address] [address] [address] Timi DIAS A micrscopic examina tion will be performed if indicated. Normal [facility] Comment on above: Performed By: #### T HYRABS #### [facility] [address] [address] [address] Timi Prater Glucose Ql (U) Negative Normal NEGATIVE [facility] Comment on above: Performed By: #### T HYRABS #### [facility] [address] [address] [address] Timi Prater Hemoglobin Ql (U) Negative Normal NEGATIVE [facility] Comment on above: Performed By: #### T HYRABS #### [facility] [address] [address] [address] Timi Prater Ketones Ql (U) Negative Normal NEGATIVE [facility] Comment on above: Performed By: #### T HYRABS #### [facility] [address] [address] [address] Timi Prater LEUKOCYTES Negative Normal NEGATIVE [facility] Comment on above: Performed By: #### T HYRABS #### [facility] [address] [address] [address] Timi Prater Nitrite Ql (U) Negative Normal NEGATIVE [facility] Comment on above: Performed By: #### T HYRABS #### [facility] [address] [address] [address] Timi Prater pH (U) 7.0 [pH] Normal 5-9 [facility] Comment on above: Performed By: #### T HYRABS #### [facility] [address] [address] [address] Timi Prater SPEC GRAVITY 1.020 Normal 1.005-<=1.0 25 [facility] Comment on above: Performed By: #### T HYRABS #### [facility] [address] [address] [address] Timi Prater UA PROTEIN TRACE Normal NEGATIVE/ TRACE [facility] Comment on above: Performed By: #### T HYRABS #### [facility] [address] [address] [address] Timi Prater UR MICRO IND NOT INDICATED Normal [facility] Comment on above: Performed By: #### T HYRABS #### [facility] [address] [address] [address] Timi Prater Urobilinogen Qn (U) 0.2 {Trini'U}/dL Normal 0.2 - 1. 0 [facility] Comment on above: Performed By: #### T HYRABS #### [facility] [address] [place] [address] Dr. Timi Prater C. DIFF PCRon 08-22-2022 C. DIFFICILE PCR Negative Normal NEGATIVE [facility] Comment on above: Performed By: #### C DIFPOC #### [facility] [address] [place] [address] Dr. Timi Prater CARDIAC RITA ADMITon 023 CK [Catalytic activity/Vol] 56 U/L Normal 26-192 [facility] Comment on above: Performed By: #### O VAPE #### [facility] [address] [place] [address] Dr. Timi Prater CK.MB [Mass/Vol] ng/mL Normal <=3.60 [facility] Comment on above: Performed By: #### O VAPE #### [facility] [address] [place] [address] Dr. Timi Prater HSTROP 9.0 pg/mL Normal 4.0-51.3 [facility] Comment on above: Result Comment: CUT- OFF POINTS HAVE BEEN ESTABLISHED BASED ON THE FOURTH UNIVERSAL DEFINITIONS OF MYOCARDIAL INFARCTION. THE UPPER REFERENCE LIMIT (URL) OF TROPONIN, DEFINED THE 99TH PERCENTILE OF cTnI DISTRIBUTION IN A REFERENCE POPULATION, HAS BEEN CONFIRMED THE DECISION THRESHOLD FOR NC DIAGNOSIS. Performed By: #### O VAPE #### [facility] [address] [place] [address] Dr. Timi Prater DARREL 15 ng/mL Normal 9-82 [facility] Comment on above: Performed By: #### O VAPE #### [facility] [address] [place] [address] Dr. Timi Prater CBC AUTO DIFFon 08-22-2022 BASO # 0.1 103/ul Normal 0.0-0.1 [facility] Comment on above: Performed By: #### C ALPOO #### [facility] [address] [place] [address] Dr. Timi Prater Basophils/100 WBC (Bld) 0.7 % Normal 0.2-2.0 [facility] Comment on above: Performed By: #### C ALPOO #### [facility] [address] [place] [address] Dr. Timi Prater EO # 0.2 103/ul Normal 0.0-0.7 [facility] Comment on above: Performed By: #### C ALPOO #### [facility] [address] [place] [address] Dr. Timi Prater Eosinophils/100 WBC (Bld) 2.7 % Normal 0.9-7.0 [facility] Comment on above: Performed By: #### C ALPOO #### [facility] [address] [place] [address] Dr. Timi Prater Erythrocyte distribution width (RBC) [Ratio] 11.9 % Normal 11.0-15.0 [facility] Comment on above: Performed By: #### C ALPOO #### [facility] [address] [place] [address] Dr. Timi Prater Hematocrit (Bld) [Volume fraction] 39.0 % Normal 36.0-48.0 [facility] Comment on above: Performed By: #### C ALPOO #### [facility] [address] [place] [address] Dr. Timi Prater Hemoglobin (Bld) [Mass/Vol] 13.3 g/dL Normal 12.0-16.0 [facility] Comment on above: Performed By: #### C ALPOO #### [facility] [address] [place] [address] Dr. Timi Prater IG # 0.02 10e3/ul Normal 0.00-0.03 [facility] Comment on above: Performed By: #### C ALPOO #### [facility] [address] [address] [address] Timi Prater IG % 0.2 % Normal 0.0-0.5 [facility] Comment on above: Performed By: #### C ALPOO #### [facility] [address] [address] [address] Timi Prater LYMPH # 3.7 103/ul Normal 1.2-3.8 [facility] Comment on above: Performed By: #### C ALPOO #### [facility] [address] [place] [address] Dr. Timi Prater Lymphocytes/100 WBC (Bld) 43.6 % Normal 20.5-60.0 [facility] Comment on above: Performed By: #### C ALPOO #### [facility] [address] [place] [address] Dr. Timi Prater MANUAL DIFF REQ NO Normal [facility] [place] [facility] Comment on above: Performed By: #### C ALPOO #### [facility] [address] [place] [address] Dr. Timi Prater MCH (RBC) [Entitic mass] 31.7 pg Normal 26.7-34.0 [facility] Comment on above: Performed By: #### C ALPOO #### [facility] [address] [place] [address] Dr. Timi Prater MCHC (RBC) [Mass/Vol] 34.1 g/dL Normal 29.9-35.2 [facility] Comment on above: Performed By: #### C ALPOO #### [facility] [address] [place] [address] Dr. Timi Prater MCV (RBC) [Entitic vol] 93.1 fL Normal 81.0-99.0 [facility] Comment on above: Performed By: #### C ALPOO #### [facility] [address] [place] [address] Dr. Timi Prater MONO # 0.8 103/ul Normal 0.3-0.8 [facility] Comment on above: Performed By: #### C ALPOO #### [facility] [address] [address] [address] Timi Prater Monocytes/100 WBC (Bld) 8.9 % Normal 1.7-12.0 [facility] Comment on above: Performed By: #### C ALPOO #### [facility] [address] [place] [address] Dr. Timi Prater NEUT # 3.8 103/ul Normal 1.4-6.5 [facility] Comment on above: Performed By: #### C ALPOO #### [facility] [address] [place] [address] Dr. Timi Prater Neutrophils/100 WBC (Bld) 43.9 % Normal 43.0-75.0 [facility] Comment on above: Performed By: #### C ALPOO #### [facility] [address] [place] [address] Dr. Timi Prater Platelet mean volume (Bld) [Entitic vol] 11.1 fL Normal 9.5-13.5 [facility] Comment on above: Performed By: #### C ALPOO #### [facility] [address] [place] [address] Dr. Timi Prater PLT 218 103/ul Normal 150-450 [facility] Comment on above: Performed By: #### C ALPOO #### [facility] [address] [place] [address] Dr. Timi Prater RBC 4.19 106/ul Critically low 4.20-5.40 [facility] [place] [facility] Comment on above: Performed By: #### C ALPOO #### [facility] [address] [place] [address] Dr. Timi Prater WBC 8.6 103/ul Normal 4.0-11.0 [facility] Comment on above: Performed By: #### C ALPOO #### [facility] [address] [place] [address] Dr. Timi Prater PROF 14(COMP METB)on 023 Albumin [Mass/Vol] 4.2 g/dL Normal 3.4-5.0 [facility] [place] [facility] Comment on above: Performed By: #### O ANA CRISTINA #### [facility] [address] [address] [address] Timi Prater Albumin/Globulin [Mass ratio] 1.3 {ratio} Normal [facility] Comment on above: Performed By: #### O VAPE #### [facility] [address] [address] [address] Timi Prater ALP [Catalytic activity/Vol] 50 U/L Normal 46-116 [facility] Comment on above: Performed By: #### O VAPE #### [facility] [address] [place] [address] Dr. Timi Prater ALT [Catalytic activity/Vol] 13 U/L Critically low 14-59 [facility] Comment on above: Performed By: #### O VAPE #### [facility] [address] [place] [address] Dr. Timi Prater Anion gap [Moles/Vol] 13.8 mmol/L Normal [facility] Comment on above: Performed By: #### O VAPE #### [facility] [address] [place] [address] Dr. Timi Prater AST [Catalytic activity/Vol] 14 U/L Critically low 15-37 [facility] Comment on above: Performed By: #### O VAPE #### [facility] [address] [place] [address] Dr. Timi Prater Bilirubin [Mass/Vol] 0.4 mg/dL Normal 0.2-1.0 [facility] Comment on above: Performed By: #### O VAPE #### [facility] [address] [place] [address] Dr. Timi Prater Calcium [Mass/Vol] 9.2 mg/dL Normal 8.5-10.1 [facility] Comment on above: Performed By: #### O VAPE #### [facility] [address] [place] [address] Dr. Timi Prater Chloride [Moles/Vol] 102 mmol/L Normal 98-107 [facility] Comment on above: Performed By: #### O VAPE #### [facility] [address] [place] [address] Dr. Timi Prater CO2 [Moles/Vol] 26.9 mmol/L Normal 21.0-32.0 [facility] Comment on above: Performed By: #### O VAPE #### [facility] [address] [place] [address] Dr. Timi Prater Creatinine [Mass/Vol] 0.73 mg/dL Normal 0.55-1.02 [facility] Comment on above: Performed By: #### O VAPE #### [facility] [address] [place] [address] Dr. Timi Prater EGFR-AF SLOVENIAN >60 Normal >=60 [facility] Comment on above: Performed By: #### O VAPE #### [facility] [address] [place] [address] Dr. Timi Prater EGFR-NON AF SLOVENIAN >60 Normal >=60 [facility] Comment on above: Performed By: #### O VAPE #### [facility] [address] [place] [address] Dr. Timi Prater Globulin (S) [Mass/Vol] 3.3 g/dL Normal [facility] Comment on above: Performed By: #### O VAPE #### [facility] [address] [place] [address] Dr. Timi Prater Glucose [Mass/Vol] 107 mg/dL Critically high 74-106 [facility] Comment on above: Performed By: #### O VAPE #### [facility] [address] [place] [address] Dr. Timi Prater Potassium [Moles/Vol] 3.7 mmol/L Normal 3.5-5.1 [facility] Comment on above: Performed By: #### O VAPE #### [facility] [address] [place] [address] Dr. Timi Prater Protein [Mass/Vol] 7.5 g/dL Normal 6.4-8.2 [facility] Comment on above: Performed By: #### O VAPE #### [facility] [address] [place] [address] Dr. Timi Prater Sodium [Moles/Vol] 139 mmol/L Normal 136-145 [facility] [place] [facility] Comment on above: Performed By: #### O VAPE #### [facility] [address] [address] [address] Timi Prater Urea nitrogen [Mass/Vol] 14.0 mg/dL Normal 7.0-18.0 [facility] Comment on above: Performed By: #### O VAPE #### [facility] [address] [address] [address] Timi Prater Urea nitrogen/Creatinine [Mass ratio] 19.2 mg/mg Normal [facility] Comment on above: Performed By: #### O VAPE #### [facility] [address] [place] [address] Dr. Timi Prater PAP ACOG PANEL 2: 21 to 27on 08-21-2022 . . Normal [facility] Comment on above: Performed By: #### O VAPE #### [facility] [address] [place] [address] Dr. Timi Prater Age Gdln ACOG Testing - Normal [facility] Comment on above: Performed By: #### O VAPE #### [facility] [address] [place] [address] Dr. Timi Prater DIAGNOSIS: Comment Abnormal [facility] Comment on above: Result Comment: EPIT HELIAL CELL ABNORMALITY. ATYPICAL SQUAMOUS CELLS OF UNDETERMINED SIGNIFICANCE (ASC-US). Performed By: #### O VAPE #### [facility] [address] [place] [address] Dr. Timi Prater Electronically signed by: Comment Normal [facility] Comment on above: Result Comment: Eloise Segal MD, Pathologist Performed By: #### O VAPE #### [facility] [address] [place] [address] Dr. Timi Prater HPV Aptima Negative Normal Negative [facility] Comment on above: Result Comment: This nucleic acid amplification test detects fourteen high-risk HPV types (16,18,31,33,35,39,45,51,52,56,58,59,66,68) without differentiation. Performed By: #### O VAPE #### [facility] [address] [address] [address] Timi Prater Methodology: Comment Normal [facility] Comment on above: Result Comment: This liquid based ThinPrep(R) pap test was screened with the use of an image guided system. Performed By: #### O VAPE #### [facility] [address] [place] [address] Dr. Timi Prater Note: Comment Normal [facility] Comment on above: Result Comment: The Pap smear is a screening test designed to aid in the detection of premalignant and malignant conditions of the uterine cervix. It is not a diagnostic procedure and should not be used as the sole means of detecting cervical cancer. Both false-positive and false-negative reports do occur. . Performed By: #### O VAPE #### [facility] [address] [place] [address] Dr. Timi Prater Pathologist Provided ICD10 Comment Normal [facility] Comment on above: Result Comment: R87. 610 Performed By: #### O VAPE #### [facility] [address] [place] [address] Dr. Timi Prater Performed by: Comment Normal [facility] Comment on above: Result Comment: Lizet Holguin, Video Machines Mechanic (ASCP) Performed By: #### O VAPE #### [facility] [address] [place] [address] Dr. Timi Prater Recommendation: Comment Abnormal [facility] Comment on above: Result Comment: Sugg est follow up as clinically appropriate. Performed By: #### O VAPE #### [facility] [address] [place] [address] Dr. Timi Prater Reflex Criteria: Comment Normal [facility] Comment on above: Result Comment: See below for HPV testing results. . Performed By: #### O VAPE #### [facility] [address] [place] [address] Dr. Timi Prater Specimen adequacy: Comment Normal [facility] Comment on above: Result Comment: Sati sfactory for evaluation. Endocervical and/or squamous metaplastic cells (endocervical component) are present. Performed By: #### O VAPE #### [facility] [address] [place] [address] Dr. Timi Prater C. DIFF PCRon 07-27-2022 C. DIFFICILE PCR Positive Critically abnormal NEGATIVE [facility] Comment on above: Performed By: #### T HYRABS #### [facility] [address] [place] [address] Dr. Timi Prater C. DIFF PCRon 07-13-2022 C. DIFFICILE PCR Negative Normal NEGATIVE [facility] Comment on above: Performed By: #### C DIFPOC #### [facility] [address] [place] [address] Dr. Timi Prater US SINGLE QUAD RT [...] DARA HUMPHREY Date: 2022-05-11 17:22 Normal [facility] FECAL FAT QUANTITATIVEon Fecal Weight (Total) 233 g Normal [facility] Comment on above: Performed By: #### C ALPOO #### [facility] [address] [place] [address] Dr. Timi Prater Fecal, (Fecal Lipids)Qn 1.3 g/24 hr Normal 0.0-7.1 [facility] Comment on above: Result Comment: This value is based on a 72 hour stool collection. Performed By: #### C ALPOO #### [facility] [address] [place] [address] [id number] [address] Timi Prater LACTOFERRIN FECAL QUANTon Lactoferrin, Fecal, Quant. <1.00 Normal 0.00-7.24 [facility] Comment on above: Result Comment: Re [...] (IBS). Performed By: #### C ALPOO #### [facility] [address] [place] [address] Dr. Timi Prater PANCREATIC ELASTASE FECALon 05-05-2022 Pancreatic Elastase, Fecal 369 ug Elast./g Normal >200 [facility] Comment on above: Result Comment: Tia re Pancreatic Insufficiency: <100 Moderate Pancreatic Insufficiency: 100 - 200 Normal: >200 Performed By: #### T HYRABS #### [facility] [address] [place] [address] Dr. Timi Prater C. DIFF PCRon 04-17-2022 C. DIFFICILE PCR Negative Normal NEGATIVE [facility] Comment on above: Performed By: #### O VAPE #### [facility] [address] [place] [address] Dr. Timi Prater GI PANEL (PCR)on 03-17-2022 Adenovirus F 40/41 Not detected Normal NOT DETECTED [facility] Comment on above: Performed By: #### G IPANEL #### [facility] [address] [place] [address] Dr. Timi Prater Astrovirus Not detected Normal NOT DETECTED [facility] Comment on above: Performed By: #### G IPANEL #### [facility] [address] [place] [address] Dr. Timi Prater C. Diff toxin A/B Not detected Normal NOT DETECTED [facility] Comment on above: Performed By: #### G IPANEL #### [facility] [address] [place] [address] Dr. Timi Prater Campylobacter Not detected Normal NOT DETECTED [facility] Comment on above: Performed By: #### G IPANEL #### [facility] [address] [address] [address] Timi Prater Cryptosporidium Not detected Normal NOT DETECTED [facility] Comment on above: Performed By: #### G IPANEL #### [facility] [address] [address] [address] Timi Prater Cyclos. Cayetanensis Not detected Normal NOT DETECTED [facility] Comment on above: Performed By: #### G IPANEL #### [facility] [address] [address] [address] Timi Prater E. Coli O157 Not Applicable Normal Not Applicable [facility] Comment on above: Performed By: #### G IPANEL #### [facility] [address] [place] [address] Dr. Timi Prater E. histolytica Not detected Normal NOT DETECTED [facility] Comment on above: Performed By: #### G IPANEL #### [facility] [address] [place] [address] Dr. Timi Prater EAEC Not detected Normal NOT DETECTED [facility] Comment on above: Performed By: #### G IPANEL #### [facility] [address] [place] [address] Dr. Timi Prater EIEC Not detected Normal NOT DETECTED [facility] Comment on above: Performed By: #### G IPANEL #### [facility] [address] [place] [address] Dr. Timi Prater EPEC Not detected Normal NOT DETECTED [facility] Comment on above: Performed By: #### G IPANEL #### [facility] [address] [place] [address] Dr. Timi Prater ETEC Not detected Normal NOT DETECTED [facility] Comment on above: Performed By: #### G IPANEL #### [facility] [address] [place] [address] Dr. Timi Preciado. Lamblia Not detected Normal NOT DETECTED [facility] Comment on above: Performed By: #### G IPANEL #### [facility] [address] [place] [address] Dr. Timi Prater GIPANEL CONTROLS PASSED Normal [facility] Comment on above: Performed By: #### G IPANEL #### [facility] [address] [address] [address] Timi HOWARD HEADER GI PANEL BACTERIA Normal T [facility] Comment on above: Performed By: #### G IPANEL #### [facility] [address] [address] [address] Timi FAJARDO ECOLI GI PANEL DIARRHEAGEN IC E.COLI / SHIGELLA Normal [facility] Comment on above: Performed By: #### G IPANEL #### [facility] [address] [address] [address] Timi FAJARDO INFO SEE BELOW [facility] Comment on above: Result Comment: EAEC - Enteroaggregative E. Coli EPEC- Enteropathogenic E. Coli ETEC- Enterotoxigenic E. Coli lt/st STEC- Shigella-like toxin-producing E. Coli stx1/stx2 EIEC- Shigella/Enteroinvasive E. Coli Performed By: #### G IPANEL #### [facility] [address] [place] [address] Dr. Timi FAJARDO PARASITES GI PANEL PARASITES Normal [facility] Comment on above: Performed By: #### G IPANEL #### [facility] [address] [place] [address] Dr. Timi FAJARDO VIRUS GI PANEL VIRUSES Normal [facility] Comment on above: Performed By: #### G IPANEL #### [facility] [address] [place] [address] Dr. Timi Prater Norovirus GI/GII Not detected Normal NOT DETECTED [facility] Comment on above: Performed By: #### G IPANEL #### [facility] [address] [address] [address] Timi Prater P. Shigelloides Not detected Normal NOT DETECTED [facility] Comment on above: Performed By: #### G IPANEL #### [facility] [address] [place] [address] Dr. Timi Prater Rotavirus A Not detected Normal NOT DETECTED [facility] Comment on above: Performed By: #### G IPANEL #### [facility] [address] [place] [address] Dr. Timi Prater Salmonella Not detected Normal NOT DETECTED [facility] Comment on above: Performed By: #### G IPANEL #### [facility] [address] [place] [address] Dr. Timi Prater Sapovirus Not detected Normal NOT DETECTED [facility] Comment on above: Performed By: #### G IPANEL #### [facility] [address] [place] [address] Dr. Timi Prater STEC Not detected Normal NOT DETECTED [facility] Comment on above: Performed By: #### G IPANEL #### [facility] [address] [place] [address] Dr. Timi Prater Vibrio Not detected Normal NOT DETECTED [facility] Comment on above: Performed By: #### G IPANEL #### [facility] [address] [place] [address] Dr. Timi Prater Vibrio Cholera Not detected Normal NOT DETECTED [facility] Comment on above: Performed By: #### G IPANEL #### [facility] [address] [place] [address] Dr. Timi Prater Y. Enterocolitica Not detected Normal NOT DETECTED [facility] Comment on above: Performed By: #### G IPANEL #### [facility] [address] [place] [address] Dr. Timi Prater STOOL CULTUREon 03-01-2022 Campylobacter Culture Final report Normal [facility] Comment on above: Performed By: #### C XSTOOL #### [facility] [address] [place] [address] Dr. Timi Prater E coli Shiga Toxin EIA Negative Normal Negative [facility] Comment on above: Performed By: #### C XSTOOL #### [facility] [address] [place] [address] Dr. Timi Prater Result 1 Comment Normal [facility] Comment on above: Result Comment: No S almonella or Shigella recovered. Performed By: #### C XSTOOL #### [facility] [address] [place], [place] [address] Dr. Timi Prater Result Comment: No C ampylobacter species isolated. Salmonella/Shigella Screen Final report Normal [facility] Comment on above: Performed By: #### C XSTOOL #### [facility] [address] [place], [place] [address] Dr. Timi Prater CLOSTRIDIUM DIFFICILE PCRon 02-03-2022 C difficile Toxin Gene RUCHI Negative Normal Negative [facility] Comment on above: Performed By: #### C DIFPOC #### [facility] [address] [place], [place] [address] Dr. Timi Prater C. DIFF PCRon 01-14-2022 C. DIFFICILE PCR Negative Normal NEGATIVE [facility] Comment on above: Performed By: #### C ALPOO #### [facility] [address] [place], [place] [address] Dr. Timi Prater Endoscopy Reporton 2 Endoscopy Report MR#: [id number] [facility] Pt. Name: Chioma Henao Surgery Date: 12/29/2021 Room #: Z0 Date of : 2000 PROCEDURE NOTE ATTENDING: Paula Huggins MD PROCEDURE: Colonoscopy with FMT. INDICATION FOR PROCEDURE: Recurrent C diff. TYPE OF ANESTHESIA: Conscious sedation, 6 mg of Versed, 150 mcg of fentanyl, and 25 mg of Benadryl. 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 QUALITY OF THE [...] b.i.d. for 4 weeks. Electronically Signed by: Paula Huggins MD 12/30/2021 09:21 A Paula Huggins MD I was present for the entire procedure from insertion of the scope until it was withdrawn. Date Dict: 12/29/2021/12:24 P/Darren Baig MD Date Trans: 12/30/2021 03:17 A/mmo [id number] cc: Gabino Owen M.D. [address] [facility] [id number] Normal [facility] POC SARS COV2 IDon 2 SARS-CoV-2 (COVID-19) RNA RUCHI+probe Ql (Unsp spec) Negative Normal NEGATIVE [facility] Comment on above: Result Comment: ID N [...] Accreditation. Performed By: #### 3 1921 #### [address] [address] [place] [address], [facility] POC URINE PREGNANCYon 2021 Beta HCG ( test) Ql (U) Negative Normal NEGATIVE [facility] Comment on above: Result Comment: Perf ormed in PACU Performed By: #### 8 [id number] #### [facility] [place] [address], [facility] General Surgery Office/Clini c Noteon 07-08-2021 General [...] 06/21/2021 Family History Cancer: Father. Stroke: Mother. [facility] Comment on above: Result Comment: Elec tronically Signed By: KALEB MACKEY, Ana Lan\Date and Time Signed: 07/08/21 16:21 EST Pathology Noteon 07-04-2021 Pathology Note [id number]#1.00CD:12 7 [facility] Operative Reporton Operative Report [id number]#1.00CD:127 [facility] Lab Reportson 06-27-2021 Lab Reports [id number]#1.00CD:12 7 [facility] Consent for Procedure/Surger yon 06-22-2021 Consent for Procedure/Surgery [id number]#1.00CD:12 7 [facility] Provider [facility] [facility] 22, 2021 Gabino Owen, [facility] [place] [address] Re: CHIOMA HENAO Date of : 2000 Thank you for your referral of Chioma Henao who was seen on consultation on 06/21/2021 for daily nausea with abdominal cramping. An EGD is planned for further evaluation. I have enclosed my consultation note for your review. I will be happy to follow Chioma. Sincerely, Ana De La Cruz MD General Surgery Normal [facility] Ambulatory Clinical Summaryo n 06-21-2021 Ambulatory Clinical Summary {[id number] Normal [facility] Physician Referralon 021 Physician Referral [id number]#1.00CD:12 7 Normal [facility] COVID Quick Testingon 2020 Result Negative [facility] Other S. pyogenes Ag Ql (Throat)on 05-05-2021 S. pyogenes Org specific cx Ql (Throat) Negative [facility] Other Ambulatory Clinical Summaryo n 01-04-2021 Ambulatory Clinical Summary {[id number]}C [id number] Normal [facility] General Surgery Office/Clini c Noteon 01-04-2021 [...] Family History Cancer: Father. Stroke: Mother. Normal [facility] Comment on above: Result Comment: Elec tronically Signed By: KALEB MACKEY, Ana Lan\Date and Time Signed: 01/04/21 14:32 EDT Pathology Noteon 01-01-2021 Pathology Note [id number]:1 27 [facility] Outside Colonoscopyon 2020 Outside Colonoscopy [id number]:1 27 [facility] Lab Reportson 12-29-2020 Lab Reports [id number]:12 7 [facility] Consent for Procedure/Surger yon 12-08-2020 Consent for Procedure/Surgery [id number]:12 7 [facility] Provider Letter FTon 12-[address] [facility] (Inserted Image. Un able to display) Gabino Owen, [address] [place] [address] Re: CHIOMA HENAO Date of : 2000 Thank you for your referral of Chioma Henao who was seen on consultation on December 07, 2020, for colonoscopy due to abdominal pain and diarrhea. A colonoscopy is planned. I have enclosed my consultation notes for your review. I will be happy to follow Chioma should her symptoms persist. Sincerely, Ana De La Cruz MD General Surgery Normal [facility] Ambulatory Clinical Summaryo n 12-07-2020 Ambulatory Clinical Summary {[id number] Normal [facility] Patient Educationon 12-08-19 Patient Education Preventive [...] Yard work, such as: ? 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 ? Raking and bagging leaves. ? Washing [...] Document Reviewed: 05/30/2018 [employer] Patient Education ? 2019 [employer] Radiology Colonoscopy, Adult A colonoscopy is [...] have certain (more content not included)... Normal [facility] Physician Referralon 021 Physician Referral [id number]:12 7 Normal [facility] No Panel Informationon 12-02 [facility] Vital Signs Date Time Vital Sign Value Performing Clinician Facility 09-03-2024 11:00-0500 Diastolic blood pressure 61 mm[Hg] Dara Butler Jr., DO Work Phone: [facility] 09-03-2024 11:00-0500 Heart rate 67 /min Dara Butler Jr., DO Work Phone: [facility] 09-03-2024 11:00-0500 Respiratory rate 18 /min Dara Butler Jr., DO Work Phone: [facility] 09-03-2024 11:00-0500 SaO2% (BldA) [Mass fraction] 100 % Dara Butler Jr., DO Work Phone: [facility] 09-03-2024 11:00-0500 Systolic blood pressure 102 mm[Hg] Dara Butler Jr., DO Work Phone: [facility] 09-03-2024 10:13-0500 Body height 162.6 cm Dara Butler Jr., DO Work Phone: [facility] 09-03-2024 10:13-0500 Body mass index (BMI) [Ratio] 19.74 kg/m2 Dara Butler Jr., DO Work Phone: [facility] 09-03-2024 10:13-0500 Body temperature 98.4 [degF] Dara Butler Jr., DO Work Phone: [facility] 09-03-2024 10:13-0500 Body weight 52.16 kg Dara Butler Jr., DO Work Phone: [facility] 07-15-2024 07:39-0500 Body mass index (BMI) [Ratio] 19.74 kg/m2 Nae Ibarra MD Work Phone: [facility] 07-15-2024 07:39-0500 Body weight 52.16 kg Nae Ibarra MD Work Phone: [facility] 07-15-2024 07:39-0500 Diastolic blood pressure 61 mm[Hg] Nae Ibarra MD Work Phone: [facility] 07-15-2024 07:39-0500 Heart rate 80 /min Nae Ibarra MD Work Phone: [facility] 07-15-2024 07:39-0500 Systolic blood pressure 99 mm[Hg] Nae Ibarra MD Work Phone: [facility] 07-08-2024 14:18-0500 Body height 162.56 cm [facility] 07-08-2024 14:18-0500 Body mass index (BMI) [Ratio] 19.9 kg/m2 [facility] 07-08-2024 14:18-0500 Body temperature 95.9 [degF] [facility] 07-08-2024 14:18-0500 Body weight 52.61 kg [facility] 07-08-2024 14:18-0500 Diastolic blood pressure 62 mm[Hg] [facility] 07-08-2024 14:18-0500 Heart rate 77 /min [facility] 07-08-2024 14:18-0500 SaO2% (BldA) [Mass fraction] 98 % [facility] 07-08-2024 14:18-0500 Systolic blood pressure 114 mm[Hg] [facility] 07-03-2024 11:56-0500 Body mass index (BMI) [Ratio] 19.91 kg/m2 Jeremiah Heike DO Work Phone: [facility] 07-03-2024 11:56-0500 Body weight 52.62 kg Jeremiah Heike DO Work Phone: [facility] 07-03-2024 11:56-0500 Diastolic blood pressure 60 mm[Hg] Jeremiah Heike DO Work Phone: [facility] 07-03-2024 11:56-0500 Systolic blood pressure 108 mm[Hg] Jeremiah Heike DO Work Phone: [facility] 04-30-2024 10:38-0400 Body height 162.6 cm Paula Pretty MD Work Phone: [facility] 04-30-2024 10:38-0400 Body mass index (BMI) [Ratio] 18.88 kg/m2 Paula Pretty MD Work Phone: [facility] 04-30-2024 10:38-0400 Body weight 49.9 kg Paula Pretty MD Work Phone: [facility] 04-30-2024 10:38-0400 Diastolic blood pressure 74 mm[Hg] Paula Pretty MD Work Phone: [facility] 04-30-2024 10:38-0400 Heart rate 86 /min Paula Pretty MD Work Phone: [facility] 04-30-2024 10:38-0400 Respiratory rate 18 /min Paula Pretty MD Work Phone: [facility] 04-30-2024 10:38-0400 Systolic blood pressure 108 mm[Hg] Paula Pretty MD Work Phone: [facility] 04-16-2024 10:51-0400 Diastolic blood pressure 64 mm[Hg] Whitney Ambriz MD MPH Work Phone: [facility] 04-16-2024 10:51-0400 Heart rate 68 /min Whitney Ambriz MD MPH Work Phone: [facility] 04-16-2024 10:51-0400 Respiratory rate 18 /min Whitney Ambriz MD MPH Work Phone: [facility] 04-16-2024 10:51-0400 SaO2% (BldA) [Mass fraction] 100 % Whitney Ambriz MD MPH Work Phone: [facility] 04-16-2024 10:51-0400 Systolic blood pressure 98 mm[Hg] Whitney Ambriz MD MPH Work Phone: [facility] 04-16-2024 10:21-0400 Body temperature 97.2 [degF] Whitney Ambriz MD MPH Work Phone: [facility] 04-16-2024 08:23-0400 Body height 162.6 cm Whitney Ambriz MD MPH Work Phone: [facility] 04-16-2024 08:23-0400 Body mass index (BMI) [Ratio] 19.74 kg/m2 Whitney Ambriz MD MPH Work Phone: [facility] 04-16-2024 08:23-0400 Body weight 52.16 kg Whitney Ambriz MD MPH Work Phone: [facility] 03-26-2024 10:52-0400 Body height 162.6 cm Paula Pretty MD Work Phone: [facility] 03-26-2024 10:52-0400 Body mass index (BMI) [Ratio] 18.88 kg/m2 Paula Pretty MD Work Phone: [facility] 03-26-2024 10:52-0400 Body weight 49.9 kg Paula Pretty MD Work Phone: [facility] 03-26-2024 10:52-0400 Diastolic blood pressure 67 mm[Hg] Paula Pretty MD Work Phone: [facility] 03-26-2024 10:52-0400 Heart rate 81 /min Paula Pretty MD Work Phone: [facility] 03-26-2024 10:52-0400 Respiratory rate 16 /min Paula Pretty MD Work Phone: [facility] 03-26-2024 10:52-0400 Systolic blood pressure 110 mm[Hg] Paula Pretty MD Work Phone: [facility] 03-19-2024 13:20-0400 Body height 162.56 cm DO Ana Bookers Work Phone: [facility] 03-19-2024 13:20-0400 Body mass index (BMI) [Ratio] 19.2 kg/m2 DO Ana Bookers Work Phone: [facility] 03-19-2024 13:20-0400 Body weight 50.8 kg DO Ana Bookers Work Phone: [facility] 03-19-2024 13:20-0400 Diastolic blood pressure 60 mm[Hg] DO Ana Bookers Work Phone: [facility] 03-19-2024 13:20-0400 Heart rate 78 /min DO Ana Bookers Work Phone: [facility] 03-19-2024 13:20-0400 SaO2% (BldA) [Mass fraction] 99 % DO Ana Bookers Work Phone: [facility] 03-19-2024 13:20-0400 Systolic blood pressure 94 mm[Hg] DO Ana Ades Work Phone: [facility] 03-05-2024 14:15-0400 Body mass index (BMI) [Ratio] 18.19 kg/m2 Whitney Ambriz MD MPH Work Phone: [facility] 03-05-2024 14:15-0400 Body weight 48.08 kg Whitney Ambriz MD MPH Work Phone: [facility] 03-05-2024 14:15-0400 Diastolic blood pressure 71 mm[Hg] Whitney Ambriz MD MPH Work Phone: [facility] 03-05-2024 14:15-0400 Heart rate 97 /min Whitney Ambriz MD MPH Work Phone: [facility] 03-05-2024 14:15-0400 Systolic blood pressure 111 mm[Hg] Whitney Ambriz MD MPH Work Phone: [facility] 02-26-2024 15:21-0400 Body height 162.6 cm Bola Braden MD Work Phone: [facility] 02-26-2024 15:21-0400 Body mass index (BMI) [Ratio] 19.38 kg/m2 Bola Braden MD Work Phone: [facility] 02-26-2024 15:21-0400 Body temperature 98.2 [degF] Bola Braden MD Work Phone: [facility] 02-26-2024 15:21-0400 Body weight 51.26 kg Bola Braden MD Work Phone: [facility] 02-26-2024 15:21-0400 Diastolic blood pressure 68 mm[Hg] Bola Braden MD Work Phone: [facility] 02-26-2024 15:21-0400 Heart rate 65 /min Bola Braden MD Work Phone: [facility] 02-26-2024 15:21-0400 Systolic blood pressure 117 mm[Hg] Bola Braden MD Work Phone: [facility] 02-05-2024 14:42-0400 Body height 162.6 cm Dane Merida MD Work Phone: [facility] 02-05-2024 14:42-0400 Body mass index (BMI) [Ratio] 19.14 kg/m2 Dane Merida MD Work Phone: [facility] 02-05-2024 14:42-0400 Body weight 50.58 kg Dane Merida MD Work Phone: [facility] 02-05-2024 14:42-0400 Diastolic blood pressure 71 mm[Hg] Dane Merida MD Work Phone: [facility] 02-05-2024 14:42-0400 Heart rate 77 /min Dane Merida MD Work Phone: [facility] 02-05-2024 14:42-0400 Respiratory rate 18 /min Dane Merida MD Work Phone: [facility] 02-05-2024 14:42-0400 Systolic blood pressure 117 mm[Hg] Dane Merida MD Work Phone: [facility] 01-10-2024 09:24-0400 Body height 162.6 cm Mckenzie Shepherd GAS OR WATER METER INSTALLER-SMELTING ENGINEER Work Phone: [facility] 01-10-2024 09:24-0400 Body mass index (BMI) [Ratio] 19.53 kg/m2 Mckenzie Shepherd GAS OR WATER METER INSTALLER-SMELTING ENGINEER Work Phone: [facility] 01-10-2024 09:24-0400 Body weight 51.62 kg Mckenzie Shepherd GAS OR WATER METER INSTALLER-SMELTING ENGINEER Work Phone: [facility] 01-10-2024 09:24-0400 Diastolic blood pressure 66 mm[Hg] Mckenzie Shepherd GAS OR WATER METER INSTALLER-SMELTING ENGINEER Work Phone: [facility] 01-10-2024 09:24-0400 Heart rate 73 /min Mckenzie Shepherd GAS OR WATER METER INSTALLER-SMELTING ENGINEER Work Phone: [facility] 01-10-2024 09:24-0400 Systolic blood pressure 114 mm[Hg] Mckenzie Shepherd GAS OR WATER METER INSTALLER-SMELTING ENGINEER Work Phone: [facility] 12-05-2023 13:45-0400 Body height 162.6 cm Ariella 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 Work Phone: [facility] 12-05-2023 13:45-0400 Body mass index (BMI) [Ratio] 19.22 kg/m2 Ariella Mccoy APRN.SMELTING ENGINEER Work Phone: [facility] 12-05-2023 13:45-0400 Body temperature 98.01 [degF] Ariella Mccoy APRN.SMELTING ENGINEER Work Phone: [facility] 12-05-2023 13:45-0400 Body weight 50.8 kg Ariella Mccoy APRN.SMELTING ENGINEER Work Phone: [facility] 12-05-2023 13:45-0400 Diastolic blood pressure 64 mm[Hg] Ariella Mccoy APRN.SMELTING ENGINEER Work Phone: [facility] 12-05-2023 13:45-0400 Heart rate 90 /min Ariella Mccoy APRN.SMELTING ENGINEER Work Phone: [facility] 12-05-2023 13:45-0400 SaO2% (BldA) [Mass fraction] 99 % Ariella Mccoy APRN.SMELTING ENGINEER Work Phone: [facility] 12-05-2023 13:45-0400 Systolic blood pressure 106 mm[Hg] Ariella Mccoy APRN.SMELTING ENGINEER Work Phone: [facility] 11-29-2023 11:15-0400 Body height 162.56 cm [facility] 11-29-2023 11:15-0400 Body mass index (BMI) [Ratio] 18.7 kg/m2 [facility] 11-29-2023 11:15-0400 Body weight 49.58 kg [facility] 11-29-2023 11:15-0400 Diastolic blood pressure 60 mm[Hg] [facility] 11-29-2023 11:15-0400 Heart rate 83 /min [facility] 11-29-2023 11:15-0400 Respiratory rate 18 /min [facility] 11-29-2023 11:15-0400 SaO2% (BldA) [Mass fraction] 98 % [facility] 11-29-2023 11:15-0400 Systolic blood pressure 110 mm[Hg] [facility] 11-15-2023 14:44-0400 Body height 162.6 cm Pacc 1 Other Phone: [facility] 11-15-2023 14:44-0400 Body mass index (BMI) [Ratio] 20.06 kg/m2 Pacc 1 Other Phone: [facility] 11-15-2023 14:44-0400 Body temperature 97.11 [degF] Pacc 1 Other Phone: [facility] 11-15-2023 14:44-0400 Body weight 53 kg Pacc 1 Other Phone: [facility] 11-15-2023 14:44-0400 Diastolic blood pressure 67 mm[Hg] Pacc 1 Other Phone: [facility] 11-15-2023 14:44-0400 Heart rate 75 /min Pacc 1 Other Phone: [facility] 11-15-2023 14:44-0400 Respiratory rate 18 /min Pacc 1 Other Phone: [facility] 11-15-2023 14:44-0400 SaO2% (BldA) [Mass fraction] 100 % Pacc 1 Other Phone: [facility] 11-15-2023 14:44-0400 Systolic blood pressure 110 mm[Hg] Pacc 1 Other Phone: [facility] 10-22-2023 14:44-0400 Body height 162.6 cm Sedrick Rushing MD Work Phone: [facility] 10-22-2023 14:44-0400 Body weight 52.62 kg Sedrick Rushing MD Work Phone: [facility] 10-22-2023 14:44-0400 Diastolic blood pressure 62 mm[Hg] Sedrick Rushing MD Work Phone: [facility] 10-22-2023 14:44-0400 Heart rate 40 /min Sedrick Rushing MD Work Phone: [facility] 10-22-2023 14:44-0400 Systolic blood pressure 102 mm[Hg] Sedrick Rushing MD Work Phone: [facility] 09-06-2023 14:00-0500 Heart rate 68 /min Isabelle Menon MD Work Phone: [facility] 09-06-2023 14:00-0500 Respiratory rate 22 /min Isabelle Menon MD Work Phone: [facility] 09-06-2023 14:00-0500 SaO2% (BldA) [Mass fraction] 100 % Isabelle Menon MD Work Phone: [facility] 09-06-2023 13:45-0500 Diastolic blood pressure 76 mm[Hg] Isabelle Menon MD Work Phone: [facility] 09-06-2023 13:45-0500 Systolic blood pressure 101 mm[Hg] Isabelle Menon MD Work Phone: [facility] 09-06-2023 13:27-0500 Body temperature 97.2 [degF] Isabelle Menon MD Work Phone: [facility] 06-06-2023 11:42-0500 Body weight 51.26 kg Isabelle Menon MD Work Phone: [facility] 06-06-2023 11:42-0500 Diastolic blood pressure 71 mm[Hg] Isabelle Menon MD Work Phone: [facility] 06-06-2023 11:42-0500 Heart rate 87 /min Isabelle Menon MD Work Phone: [facility] 06-06-2023 11:42-0500 Systolic blood pressure 104 mm[Hg] Isabelle Menon MD Work Phone: [facility] 05-24-2023 11:30-0400 Body height 162.56 cm Analia Holliday Other [facility] Other 05-24-2023 11:30-0400 Body mass index (BMI) [Ratio] 20.48 kg/m2 Analia Holliday Other [facility] Other 05-24-2023 11:30-0400 Body weight 54.11 kg Analia Holliday Other [facility] Other 05-24-2023 11:30-0400 Diastolic blood pressure 60 mm[Hg] Analia Holliday Other [facility] Other 05-24-2023 11:30-0400 Respiratory rate 18 /min Analia Holliday Other [facility] Other 05-24-2023 11:30-0400 SaO2% (BldA) [Mass fraction] 99 % Analiasalma Holliday Other [facility] Other 05-24-2023 11:30-0400 Systolic blood pressure 100 mm[Hg] Analia Holliday Other [facility] Other 05-22-2023 11:10-0400 Body height 162.6 cm Dara Butler Jr., DO Work Phone: [facility] 05-22-2023 11:10-0400 Body weight 52.3 kg Dara Butler Jr., DO Work Phone: [facility] 02-06-2023 10:10-0400 Body height 162.6 cm Dara Butler Jr., DO Work Phone: [facility] 02-06-2023 10:10-0400 Body weight 51.26 kg Dara Butler Jr., DO Work Phone: [facility] 02-06-2023 10:10-0400 Diastolic blood pressure 67 mm[Hg] Dara Butler JrToby, DO Work Phone: [facility] 02-06-2023 10:10-0400 Heart rate 67 /min Dara Butler JrToby, DO Work Phone: [facility] 02-06-2023 10:10-0400 SaO2% (BldA) [Mass fraction] 100 % Dara Butler JrToby, DO Work Phone: [facility] 02-06-2023 10:10-0400 Systolic blood pressure 101 mm[Hg] Dara Butler JrToby, DO Work Phone: [facility] 11-22-2022 10:00-0400 Body height 162.56 cm Silvano Reyez Other [facility] Other 11-22-2022 10:00-0400 Body mass index (BMI) [Ratio] 19.91 kg/m2 Silvano Reyez Other [facility] Other 11-22-2022 10:00-0400 Body weight 52.62 kg Silvano Reyez Other [facility] Other 11-22-2022 10:00-0400 Diastolic blood pressure 65 mm[Hg] Silvano Reyez Other [facility] Other 11-22-2022 10:00-0400 Systolic blood pressure 112 mm[Hg] Silvano Reyez Other [facility] Other 04-27-2022 14:30-0400 Body height 162.56 cm Jaya Parikh Other [facility] Other 04-27-2022 14:30-0400 Body mass index (BMI) [Ratio] 19.74 kg/m2 Jaya Parikh Other [facility] Other 04-27-2022 14:30-0400 Body weight 52.16 kg Jaya Parikh Other [facility] Other 03-15-2022 15:29-0400 Body height 162.6 cm Irena Presley MD Work Phone: [facility] 03-15-2022 15:29-0400 Body mass index (BMI) [Ratio] 19.6 kg/m2 Irena Presley MD Work Phone: [facility] 03-15-2022 15:29-0400 Body weight 51.8 kg Irena Presley MD Work Phone: [facility] 03-15-2022 15:29-0400 Diastolic blood pressure 60 mm[Hg] Irena Presley MD Work Phone: [facility] 03-15-2022 15:29-0400 Heart rate 74 /min Irena Presley MD Work Phone: [facility] 03-15-2022 15:29-0400 Respiratory rate 18 /min Irena Presley MD Work Phone: [facility] 03-15-2022 15:29-0400 SaO2% (BldA) [Mass fraction] 99 % Irena Presley MD Work Phone: [facility] 03-15-2022 15:29-0400 Systolic blood pressure 100 mm[Hg] Irena Presley MD Work Phone: [facility] 09-27-2021 12:00-0500 Body height 162.56 cm Jaya Parikh Other [facility] Other 09-27-2021 12:00-0500 Body mass index (BMI) [Ratio] 19.74 kg/m2 Jaya Parikh Other [facility] Other 09-27-2021 12:00-0500 Body weight 52.16 kg Jaya Parikh Other [facility] Other 09-27-2021 12:00-0500 Diastolic blood pressure 74 mm[Hg] Jaya Parikh Other [facility] Other 09-27-2021 12:00-0500 Systolic blood pressure 106 mm[Hg] Jaya Parikh Other [facility] Other 05-05-2021 10:30-0400 Body height 162.56 cm Arlene Sruthi Other [facility] Other 05-05-2021 10:30-0400 Body mass index (BMI) [Ratio] 20.6 kg/m2 Arlene Sruthi Other [facility] Other 05-05-2021 10:30-0400 Body temperature 99.1 [degF] Arlene Sruthi Other [facility] Other 05-05-2021 10:30-0400 Body weight 54.43 kg Arlene Sruthi Other [facility] Other 05-05-2021 10:30-0400 Respiratory rate 18 /min Arlene Negro Other [facility] Other 05-05-2021 10:30-0400 SaO2% (BldA) [Mass fraction] 97 % Arlene Negro Other [facility] Other Encounters Encounter Date Encounter Type Care Provider Facility Start: 10-24-2024 End: 10-24-2024 ambulatory [facility] Work Phone: Start: 10-24-2024 End: 10-24-2024 Patient encounter procedure [facility] Physician [facility] Work Phone: Start: 09-05-2024 End: 09-09-2024 Follow-up encounter Dara Butler DO Work Phone: Gastroenterology Start: 09-03-2024 End: 09-03-2024 ambulatory DARA BUTLER JR Facility:[facility] Start: 09-03-2024 End: 09-03-2024 Subsequent hospital visit by physician Dara Butler DO Work Phone: [facility] Comment on above: Generalized abdomina l pain [R10.84] Start: 08-21-2024 End: 08-22-2024 ambulatory Paula Pretty MD Work Phone: Pain Management Comment on above: Cancel procedure Start: 07-28-2024 ambulatory PAULA HUGGINS [facility] Start: 07-24-2024 End: 07-24-2024 Departed Referred Analia Dennis GAS OR WATER METER INSTALLER Work Phone: [facility] [place] Work Phone: Start: 07-24-2024 End: 07-24-2024 ambulatory Analia Dennis Facility:[facility] Start: 07-24-2024 End: 07-24-2024 Patient encounter procedure Critical [facility] Physician [facility] Work Phone: Start: 07-15-2024 End: 07-17-2024 Telephone encounter Nae Ibarra MD Work Phone: Rheumatology Comment on above: Results Start: 07-15-2024 Non-patient / Non-visit [facility] Work Phone: Start: 07-15-2024 End: 07-15-2024 ambulatory NAE IBARRA Facility:[facility] Start: 07-15-2024 End: 07-15-2024 Patient encounter procedure Nae Ibarra MD Work Phone: Rheumatology Comment on above: Chronic fatigue (Carrie mukund Dx); Vitamin B12 deficiency; Vitamin D deficiency; Generalized abdominal pain; Urticaria; Photosensitivity; Chronic bilateral low back pain without sciatica; Cervicalgia; Upper back pain; Long-term use of high-risk medication Start: 07-14-2024 Non-patient / Non-visit [facility] Work Phone: Start: 07-11-2024 Non-patient / Non-visit [facility] Work Phone: Start: 07-09-2024 Non-patient / Non-visit [facility] Work Phone: Start: 07-08-2024 End: 07-08-2024 Patient encounter procedure [facility] Work Phone: Start: 07-08-2024 End: 07-08-2024 Clinisync Result Encounter [...] OB Start: 07-03-2024 End: 07-03-2024 Telephone encounter Nelson Thompson MD Work Phone: Pain Management Comment on above: Appointment Start: 07-03-2024 End: 07-03-2024 Office outpatient visit 15 minutes Jeremiah Heike DO Work Phone: [facility] Comment on above: Follow-up visit afte r miscarriage Start: 07-03-2024 End: 07-03-2024 ambulatory JEREMIAH BURROUGHS Not Available Start: 07-01-2024 End: 07-01-2024 Patient [...] 07-01-2024 ambulatory ELIF RICH Not Available Start: 06-30-2024 Non-patient / Non-visit [facility] Work Phone: Start: 06-27-2024 Non-patient / Non-visit [facility] Work Phone: Start: 06-25-2024 Non-patient / Non-visit [facility] Work Phone: Start: 06-23-2024 End: 06-23-2024 Telephone encounter Tho Huffman MD Work Phone: Internal Medicine Comment on above: Appointment Start: 05-14-2024 End: 05-14-2024 Telephone encounter Tho Huffman MD Work Phone: Ambulatory Surgery Comment on above: Schedule Injection Start: 04-30-2024 End: 04-30-2024 ambulatory ANALIA HOLLIDAY Facility:[facility] Start: 04-30-2024 End: 04-30-2024 Patient encounter procedure Paula Pretty MD Work Phone: Pain Management Comment [...] Start: 03-26-2024 End: 03-26-2024 Patient encounter procedure Paula Pretty MD Work Phone: Pain Management Comment on above: APPOINTMENT CANCELLE D (Primary Dx) Start: 03-26-2024 End: 03-26-2024 ambulatory ANALIA HOLLIDAY Facility:[facility] Start: 03-19-2024 Patient encounter status [facility] Start: 03-19-2024 End: 03-19-2024 ambulatory DO Ana Bolton Work Phone: [facility] Work Phone: Start: 03-19-2024 End: 03-19-2024 Patient encounter procedure DO Ana Juniormarilu Work Phone[facility] Work Phone: Start: 03-13-2024 End: 03-13-2024 ambulatory ANALIA HOLLIDAY Facility:[facility] Start: 03-12-2024 End: 05-12-2024 ambulatory Dara Butler Jr., DO Work Phone: Gastroenterology Start: 03-12-2024 End: 05-12-2024 Follow-up encounter Dara Butler DO Work Phone: Gastroenterology Comment on above: Follow Up Start: 03-05-2024 End: 03-05-2024 Office outpatient new 60 minutes Whitney Ambriz MD MPH Work Phone: [facility] Comment on above: Epigastric pain (Carrie mukund Dx); Median arcuate ligament syndrome (CMS-HCC); Difficulty breathing Start: 02-26-2024 End: 02-26-2024 Patient encounter procedure Bola Braden MD Work Phone: Gastroenterology Comment on above: Epigastric pain (Carrie duval Dx) Start: 02-26-2024 End: 02-26-2024 ambulatory BOLA BRADEN Facility:[facility] Start: 02-11-2024 ambulatory [facility] Facility: [facility] Start: 02-11-2024 End: 02-11-2024 Subsequent hospital visit by physician Gi/Gu 1 [facility] (I-Stat) Work Phone: Radiology Comment on above: Upper abdominal pain [R10.10] Start: 02-05-2024 End: 02-05-2024 Office outpatient new 60 minutes Dane Merida MD Work Phone: [facility] Comment on above: Median arcuate ligam ent syndrome (CMS-HCC) (Primary Dx) Start: 02-04-2024 End: 02-04-2024 ambulatory JEREMIAH HEIKE Not Available Start: 01-30-2024 ambulatory [facility] Facility: [facility] Start: 01-30-2024 End: 01-30-2024 Subsequent hospital visit by physician [facility] 2 Work Phone: [facility] Comment on above: Upper abdominal pain [R10.10] Start: 01-29-2024 Telephone encounter Vitor Harp CNM T [facility] Comment on above: Radiology [place] Start: 01-16-2024 ambulatory Isabelle Menon MD Work Phone: Gastroenterology Comment on above: EUS Start: 01-10-2024 End: 01-10-2024 Orders Only Not In System Ref Prov [facility] Start: 01-10-2024 End: 01-10-2024 Postop follow up visit related to original px Mckenzie Shepherd GAS OR WATER METER INSTALLER-SMELTING ENGINEER Work Phone: [facility] Comment on above: Status post laparosc opic appendectomy (Primary Dx) Start: 01-01-2024 End: 01-01-2024 ambulatory Ana Bolton [facility] Work Phone: Start: 01-01-2024 End: 01-01-2024 Departed Referred DO Ana Bolton Work Phone: [facility] Start: 12-28-2023 End: 12-28-2023 ambulatory DARA WINCHESTERROSEANN CANSECO Facility:[facility] Start: 12-28-2023 End: 12-28-2023 Patient encounter procedure Dara Butler DO Work Phone: Gastroenterology Comment on above: Upper abdominal pain (Primary Dx); Dyspepsia and disorder of function of stomach; Dyspepsia Start: 12-27-2023 End: 12-27-2023 ambulatory DARA WINCHESTERROSEANN CANSECO Facility:[facility] Start: 12-27-2023 Non-patient / Non-visit DO Pipe Bolton Work Phone: [facility] Work Phone: Start: 12-22-2023 ambulatory Dara Butler DO Work Phone: Gastroenterology Comment on above: Pain Start: 12-13-2023 Refill Dara Butler DO Work Phone: [facility] Comment on above: Refill Request Start: 12-05-2023 End: 12-05-2023 ambulatory ARIELLA DEGROOTYD Facility:[facility] Start: 12-05-2023 End: 12-05-2023 Patient encounter procedure Ariella Mccoy GAS OR WATER METER INSTALLER.SMELTING ENGINEER Work Phone: General Surgery Comment on above: S/P gastrointestinal surgery, follow-up exam (Primary Dx); S/P laparoscopic cholecystectomy Start: 11-29-2023 End: 11-29-2023 ambulatory [facility] Work Phone: Start: 11-29-2023 End: 11-29-2023 Patient encounter procedure [facility] Work Phone: Start: 11-21-2023 End: 11-21-2023 ambulatory ANALIA HOLLIDAY Facility:[facility] Start: 11-15-2023 Non-patient / Non-visit [facility] Work Phone: Start: 11-15-2023 End: 11-15-2023 Admission to establishment [facility] Other Phone: Pre Anesthesia Start: 11-15-2023 End: 11-15-2023 Patient encounter procedure Pacc Av 1 Other Phone: Pre Anesthesia Comment on above: Pre-op examination ( Primary Dx); Palpitations; Organic anxiety syndrome Start: 11-15-2023 End: 11-15-2023 Preprocedural examination done Pacc Av 1 Other Phone: [facility] Work Phone: Start: 11-15-2023 End: 11-15-2023 ambulatory MADHU CAUSEY Facility:[facility] Start: 11-15-2023 Encounter for other preprocedural examination SEEMA DAVIS [facility] Start: 11-15-2023 Telephone encounter Madhu Causey PA-C Work Phone: Pre Anesthesia Comment on above: Pre-Op Exam Start: 11-07-2023 End: 11-07-2023 ambulatory ANALIA HOLLIDAY Facility:[facility] Start: 11-05-2023 Telephone encounter Sedrick justice MD Work Phone: Cardiology Comment on above: Patient Question (PV Cs and Frequent ED visits. ) Start: 10-30-2023 Telephone encounter Sedrick justice MD Work Phone: Cardiology Comment on above: Palpitations; ED pt update Start: 10-23-2023 Telephone encounter Seema cooley MD Work Phone: General Surgery Comment on above: Cardiac Clearance Start: 10-22-2023 End: 10-22-2023 ambulatory SEEMA DAVIS Facility:[facility] Start: 10-22-2023 End: 10-22-2023 Patient encounter procedure Sedrick Rushing MD Work Phone: Cardiology Comment on above: Palpitations (Primar y Dx); Other supraventricular tachycardia (HCC) Start: 10-19-2023 End: 10-19-2023 ambulatory SEEMA DAVIS Facility:[facility] Start: 09-11-2023 Telephone encounter Isabelle chiu MD Work Phone: Gastroenterology Comment on above: Patient Update Start: 09-06-2023 Telephone encounter Isabelle chiu MD Work Phone: [facility] Provider Adult Start: 09-06-2023 ambulatory ANALIA Gonzalez ty:[facility] Start: 09-06-2023 End: 09-06-2023 Subsequent hospital visit by physician Isabelle Menon MD Work Phone: [facility] - ENDO Comment on above: [...] 06-01-2023 End: 06-01-2023 ambulatory Analia Holliday Other [facility] Other Start: 06-01-2023 Telephone encounter [facility] Start: 05-30-2023 End: 05-30-2023 ambulatory DAVID Holliday Work Phone: [facility] Work Phone: Start: 05-30-2023 End: 05-30-2023 Patient encounter procedure DAVID Holliday Work Phone: [facility] Start: 05-24-2023 End: 05-24-2023 ambulatory Analia Miya Other [facility] Other Start: 05-24-2023 Encounter for genera l adult medical examination without abnormal findings Analia Holliday [facility] Start: 05-24-2023 Initial preventive medicine new pt age 18-39yrs Analia Holliday [facility] Start: 05-22-2023 End: 05-22-2023 Patient encounter procedure Dara Butler DO Work Phone: Gastgroenterology Comment on above: Chronic pancreatitis , unspecified pancreatitis type (HCC) (Primary Dx); Generalized abdominal pain; Irritable bowel syndrome with diarrhea; History of Clostridioides difficile colitis Start: 05-16-2023 End: 05-16-2023 ambulatory Ordering Provider Other [facility] Other Start: 05-16-2023 Telephone encounter Ordering Provide r [facility] Start: 05-03-2023 Telephone encounter Dara joshi DO Work Phone: Gastroenterology Comment on above: Results Start: 04-14-2023 Telephone encounter Dara joshi DO Work Phone: Gastroenterology Comment on above: Results Start: 04-13-2023 ambulatory DARA BUTLER Facility: [facility] Start: 04-13-2023 End: 04-13-2023 Subsequent hospital visit by physician Ej Cerrato (I-Stat/1.5t) Work Phone: Radiology Comment on above: Chronic recurrent pa ncreatitis (HCC) [K86.1] Start: 04-12-2023 Telephone encounter Marie Altamirano (Pas) Radiology Comment on above: APPT REMINDER (APPT REMINDER CALL, LEFT MESSAGE REGARDING DIRECTIONS TO OFFICE AND # IN NEED TO CANCEL) Start: 03-27-2023 End: 03-27-2023 ambulatory Silvano Reyez Other [facility] Other Start: 03-27-2023 Telephone encounter Silvano Castillo [facility] Start: 03-23-2023 End: 03-23-2023 ambulatory Silvano Reyez Other [place] Other Start: 03-23-2023 Telephone encounter Silvano Castillo [facility] Comment on above: Results Start: 03-22-2023 End: 03-22-2023 ambulatory Silvano Reyez Other [facility] Other Start: 03-22-2023 Telephone encounter Nae poole MD Work Phone: Rheumatology Comment on above: Results Start: 03-21-2023 Telephone encounter Dara joshi DO Work Phone: Gastroenterology Comment on above: Results Start: 03-20-2023 End: 03-20-2023 ambulatory Silvano Reyez Other [place] Other Start: 03-20-2023 Telephone encounter Silvano Castillo [facility] Start: 03-15-2023 ambulatory Dara Butler DO Work Phone: Gastgroenterology Comment on above: Pancreas Start: 02-28-2023 ambulatory DARA BUTLER Facility: [facility] Start: 02-06-2023 End: 02-06-2023 Patient encounter procedure Dara Butler DO Work Phone: Gastgroenterology Comment on above: Chronic pancreatitis , unspecified pancreatitis type (HCC) (Primary Dx); Generalized abdominal pain; Intestinal malabsorption, unspecified type Start: 01-09-2023 ambulatory Jose Luis Hernandez Facility:[facility] Start: 12-21-2022 ambulatory Nae Ibarra MD Work Phone: Rheumatology Comment on above: update Start: 12-01-2022 End: 12-02-[address] DOCTOR GENTILE Facility: Start: 11-22-2022 End: 11-22-2022 ambulatory Silvano Reyez Other [facility] Other Start: 11-22-2022 Office outpatient ne w 30 minutes Silvnao Reyez [facility] Start: 11-08-2022 End: 11-08-2022 ambulatory Jaya Parikh Other [facility] Other Start: 11-08-2022 Telephone encounter Jaya Parikh [...] ambulatory DR KYREE NOGUERA . Facility:[facility] Start: 09-12-2022 End: 09-13-[address] DOCTOR GENTILE Facility:[facility] Start: 08-30-2022 End: 08-31-[address] DOCTOR GENTILE Facility:[facility] Start: 08-24-2022 End: 08-24-[address] KYREE NOGUERA . Facility:[facility] Start: 08-22-2022 End: 08-23-[address] KYREE NOGUERA . Facility:[facility] Start: 08-22-2022 End: 08-22-[address] KYREE NOGUERA . Facility:[facility] Start: 08-21-2022 End: 08-22-[address] KYREE NOGUERA . Facility:[facility] Start: 08-14-2022 End: 08-14-[address] JEREMIAH BURROUGHS . Facility:[facility] Start: 07-28-2022 End: 07-28-2022 ambulatory Jaya Parikh Other [facility] Other Start: 07-28-2022 Telephone encounter Jaya Parikh [facility] Start: 07-27-2022 End: 07-27-[address] KYREE NOGUERA . Facility:[facility] Start: 07-13-2022 End: 07-13-[address] KYREE NOGUERA . Facility:[facility] Start: 05-11-2022 End: 05-12-[address] DOCTOR GENTILE Facility:[facility] Start: 05-04-2022 End: 05-04-[address] DOCTOR GENTILE Facility:[facility] Start: 05-01-2022 End: 05-01-[address] DOCTOR GENTILE Facility:[facility] Start: 04-27-2022 End: 04-27-2022 ambulatory Jaya Parikh Other [facility] Other Start: 04-27-2022 Patient encounter procedure Jaya Parikh [facility] Start: 04-17-2022 End: 04-18-[address] KYREE NOGUERA . Facility:[facility] Start: 03-17-2022 End: 03-17-[address] DOCTOR GENTILE Facility:[facility] Start: 03-15-2022 ambulatory IRENA PRESLEY Facility:[facility] Start: 03-15-2022 End: 03-15-2022 Office outpatient new 60 minutes Irena Presley MD Work Phone: [facility] [place] Comment on above: Diarrhea, unspecifie d type (Primary Dx) Start: 02-25-2022 End: 02-25-2022 ambulatory GABINO HOY Facility: Start: 02-01-2022 End: 02-02-[address] DOCTOR GENTILE Facility:[facility] Start: 01-19-2022 End: 01-19-2022 ambulatory Jaya Parikh Other [facility] Other Start: 01-19-2022 Telephone encounter Jaya POTTER [facility] Start: 01-14-2022 End: 01-14-2022 ambulatory GABINO HOY Facility:[facility] Start: 12-27-2021 ambulatory REFERRED SELF Facility: [facility] Start: 10-27-2021 End: 10-27-2021 ambulatory Jaya Parikh Other [facility] Other Start: 10-27-2021 Telephone encounter Jaya POTTER [facility] Start: 10-17-2021 End: 10-17-2021 ambulatory Jaya Parikh Other [facility] Other Start: 10-17-2021 Telephone encounter Jaya POTTER [facility] Start: 10-07-2021 ambulatory IRENA SAKINA Facility:[facility] Start: 10-06-2021 End: 10-06-2021 ambulatory Jaya Parikh Other [facility] Other Start: 10-06-2021 Telephone encounter Jaya POTTER [facility] Start: 09-30-2021 End: 09-30-2021 ambulatory Jaya Parikh Other [facility] Other Start: 09-30-2021 Telephone encounter Jaya POTTER [facility] Start: 09-27-2021 End: 09-27-2021 ambulatory Jaya Parikh Other [facility] Other Start: 09-27-2021 [facility] visit new patient Jaya Parikh [facility] Start: 05-05-2021 Office outpatient vi sit 15 minutes Arleneramesh Negro [facility] Start: 12-02-2020 End: 12-02-2020 Subsequent hospital visit by physician [facility] Radiology Ct Scan Comment on above: Family history of is chemic heart disease and other diseases of the circulatory system [Z82.49] Procedures Date Procedure Procedure Detail Performing Clinician Start: 09-03-2024 Colonoscopy flx dx w/collj spec when pfrmd Dara Butler DO Work Phone: Start: 07-08-2024 [facility] PREG QUANT HCG Jeremiah [...] 02-11-2024 XR UPPER GI SINGLE CONTRAST Dara Flowers s DO Work Phone: Start: 01-30-2024 Gastric emptying imaging study Dara cortez DO Work Phone: Start: 01-01-2024 Level i surg pathology gross examination only Not In System Ref Prov Start: 09-06-2023 Esophagoscp rig transoral hypopharynx crv satish Menon MD Work Phone: Start: 04-13-2023 Mri abdomen w/o & w/contrast material Dara Butler DO Work Phone: Start: 12-02-2020 Ct angiography head w/contrast/noncontrast Rickie Naqvi DO Work Phone: Start: 12-02-2020 Ct angiography neck w/contrast/noncontrast Rickie Naqvi DO Work Phone: History of cholecystectomy S/P l aparoscopic cholecystectomy Ariella 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 Work Phone: Plan of Treatment Date Care Activity Detail Author Start: 2048 Zoster Vaccines (1 of 2) Zoster Vaccines (1 of 2) [facility] Start: 07-21-2025 End: 07-21-2025 Patient encounter procedure 07/21/2025 7:00 AM EST Office Visit Rheumatology [address] [place] [address] Nae Ibarra MD [address] [place], [place] [id number] 1 year follow up Rheumatology Comment on above: 1 year follow up Start: 02-06-2025 End: 02-06-2025 Patient encounter procedure 02/06/2025 9:00 AM EDT Office Visit Gastroenterology [address] [address] Dara Butler Jr., DO [address] [place] [address] Stomach pain/diarrhea Gastroenterology Comment on above: Stomach pain/diarrhea Start: 01-09-2025 Adult BMI Screening [facility] Start: 01-09-2025 Tobacco Screening [facility] Start: 01-09-2025 End: 01-09-2025 Patient encounter procedure 01/09/2025 9:00 AM EDT Office Visit Gastroenterology [address] [place] [address] Dara Butler Jr., DO [address] [place] [id number] Stomach pain/diarrhea Gastroenterology Comment on above: Stomach pain/diarrhea Start: 09-17-2024 End: 09-17-2024 Patient encounter procedure 09/17/2024 12:30 PM EST Appointment Ambulatory Surgery [address] [place] [address] [place] [address] [place] [address] Ambulatory Surgery Start: 08-27-2024 End: 08-27-2024 Admission to same day surgery center 08/27/2024 8:55 AM EST - 08/27/2024 9:32 AM EST Surgery Procedures [address] [facility] [place] [address] Tho Huffman MD [address] [place] [address] BLOCK CELIAC PLEXUS WITH C-ARM Procedures Comment on above: BLOCK CELIAC PLEXUS WITH C-ARM Start: 08-27-2024 End: 08-27-2024 Injx anes celiac plexus w/wo radiologic monitrng BLOCK CELIAC PLEXUS WITH C-ARM Right sided abdominal pain Celiac artery compression syndrome (HCC) Neuralgia and neuritis 08/27/2024 8:55 AM EST [facility] Start: 08-27-2024 Subsequent hospital visit by physician 08/27/2024 8:55 AM EST Hospital Encounter Procedures [address] [place] [address] Tho Huffman MD [address] [facility] [place] [address] Right sided abdominal pain [R10.9], Celiac artery compression syndrome (HCC) [I77.4], Neuralgia and neuritis [M79.2] Procedures Comment on above: Right sided abdominal pain [R10.9], Ju ac artery compression syndrome (HCC) [I77.4], Neuralgia and neuritis [M79.2] Start: 08-18-2024 End: 08-18-2024 Patient encounter procedure 08/18/2024 1:40 PM EST Office Visit Rheumatology [address] [place] [address] Nae Ibarra MD [address] [place] [address] for fatigue fu OV. Rheumatology Comment on above: for fatigue fu OV. Start: 07-24-2024 Bacteria identified in Urine by Culture Urine Culture [facility] Start: 07-24-2024 Urine culture [facility] Start: 07-15-2024 End: 10-14-2024 25-hydroxyvitamin D3 [Mass/volume] in Serum or Plasma [facility] Work Phone: Comment on above: Expected: 07/15/2024 (Approximate), Expi res: 10/14/2024 Start: 07-04-2024 End: 07-04-2024 Admission to same day surgery center 07/04/2024 7:30 AM EST - 07/04/2024 8:08 AM EST Surgery Ambulatory Surgery [address] [facility] [place] [address] Tho Huffman MD [address] [facility] [place] [address] BLOCK CELIAC PLEXUS WITH C-ARM Ambulatory Surgery Comment on above: BLOCK CELIAC PLEXUS WITH C-ARM Start: 07-04-2024 End: 07-04-2024 Injx anes celiac plexus w/wo radiologic monitrng BLOCK CELIAC PLEXUS WITH C-ARM Right sided abdominal pain Celiac artery compression syndrome (HCC) Neuralgia and neuritis 07/04/2024 7:30 AM EST [facility] [place] Start: 07-04-2024 Subsequent hospital visit by physician 07/04/2024 7:30 AM EST Hospital Encounter Ambulatory Surgery [address] [facility] [place] [address] Tho Huffman MD [address] [facility] [place] [address] Right sided abdominal pain [R10.9], Celiac artery [...] DERM [address] [place] [address] Elif Rich MD [address] [place] [address] Arrived [facility] Comment on above: Arrived Start: 06-30-2024 End: 06-30-2024 Patient encounter procedure 06/30/2024 10:30 AM EST Office Visit Pain Management [address] [place] [address] Paula Pretty MD [address] [place] [address] [address] [place], [place] [id number] follow up Pain Management Comment on above: follow up Start: 06-13-2024 End: 06-13-2024 Patient encounter procedure 06/13/2024 1:20 PM EST Office Visit Gastroenterology [address] [place], [place] [phone] Dara Butler Jr., DO [address] [place] [address] JN -SOONER APPT FOR FOLLOW UP Gastroenterology Comment on above: JN -SOONER APPT FOR FOLLOW UP Start: 05-07-2024 End: 05-07-2024 Patient encounter procedure 05/07/2024 11:45 AM EDT Office Visit Gastroenterology [address] [place] [address] [place] [address] [place] [address] F/U OV Gastroenterology Comment on above: F/U OV Start: 04-30-2024 End: 04-30-2024 Patient encounter procedure Pain Management Comment on above: Dr Magnolia claudio referral Start: 04-16-2024 End: 04-16-2024 Patient encounter procedure 04/16/2024 9:00 AM EDT Appointment [facility] [address] [place] [address] Whitney Ambriz MD MPH [address] Bariatric Lab [place], [place] [id number] [facility] Start: 03-26-2024 End: 03-26-2024 Patient encounter procedure 03/26/2024 11:00 AM EDT Office Visit Pain Management [address] [phone] Paula Pretty MD [address] [place] [address] [address] [place], [place] [phone] Dr Magnolia claudio referral Pain Management Comment on above: Dr Magnolia claudio referral Start: 03-23-2024 Covid-19 Vaccine ( season) Covid-19 Vaccine () [facility] Start: 03-23-2024 Covid-19 Vaccine ( season) Covid-19 Vaccine () [facility] Start: 03-23-2024 Influenza vaccination [facility] Start: 03-18-2024 End: 03-18-2024 Patient encounter procedure 03/18/2024 1:00 PM EDT Office Visit Gastroenterology [address] [address] Bola Braden MD [address] [place] [address] Pancreatitis second opinion Gastroenterology Comment on above: Pancreatitis second opinion Start: 03-14-2024 End: 03-14-2024 Patient encounter procedure 03/14/2024 10:00 AM EDT Office Visit Gastroenterology [address] [place] [address] Dara Butler Jr., DO [address] [place] [address] follow upo Gastroenterology Comment on above: follow upo Start: 02-11-2024 End: 02-11-2024 Patient encounter procedure 02/11/2024 9:30 AM EDT Appointment Radiology [address] [place] [address] : XR UPPER GI SINGLE CONTRAST Radiology Comment on above: : XR UPPER GI SINGLE CONTRAST Start: 02-01-2024 End: 02-01-2024 Patient encounter procedure 02/01/2024 3:00 PM EDT Office Visit Gastroenterology [address] [place] [address] Dara Butler Jr., DO [address] [place] [address] JN -SOONER APPT FOR FOLLOW UP Gastroenterology Comment on above: JN -SOONER APPT FOR FOLLOW UP Start: 01-30-2024 End: 01-30-2024 Patient encounter procedure 01/30/2024 8:30 AM EDT Appointment [facility] [address] [place] [address] Gastric Emptying Study Weight 115 / Patient not Diabetic / Order in EPIC // DX: Upper abdominal pain [R10.10] [facility] Comment on above: Gastric Emptying Study Weight 115 / Nancy ent not Diabetic / Order in EPIC // DX: Upper abdominal pain [R10.10] Start: 01-09-2024 End: 01-09-2024 Patient encounter procedure 01/09/2024 8:30 AM EDT Appointment [facility] [address] [place] [address] Weight 115 / Patient not Diabetic / Order in EPIC // DX: Upper abdominal pain [R10.10] [facility] Comment on above: Weight 115 / Patient not Diabetic / Orde r in EPIC // DX: Upper abdominal pain [R10.10] Start: 12-28-2023 End: 12-28-2023 Patient encounter procedure 12/28/2023 3:00 PM EDT Office Visit Gastroenterology [address] [place] [address] Dara Butler Jr., DO [address] [place] [address] abdominal pain- add per JN Gastroenterology Comment on above: abdominal pain- add per JN Start: 12-27-2023 End: 12-27-2023 ambulatory 12/27/2023 10:00 AM EDT Results Only [facility] [address] [place] [address] [place] [address] [facility] Start: 12-26-2023 End: 03-26-2024 Amylase [Enzymatic activity/volume] in Serum or Plasma [facility] Lab Routine Generalized abdominal pain History of acute pancreatitis Expected: 12/26/2023, Expires: 03/26/2024 [facility] Comment on above: Expected: 12/26/2023, Expires: Start: 12-26-2023 End: 03-26-2024 C reactive protein [Mass/volume] in Serum or Plasma C-REACTIVE PROTEIN Lab Routine Generalized abdominal pain History of acute pancreatitis Expected: 12/26/2023, Expires: 03/26/2024 [facility] Comment on above: Expected: 12/26/2023, Expires: Start: 12-26-2023 End: 09-04-2024 CBC W Auto Differential panel - Blood COMPLETE BLOOD COUNT AND DIFFERENTIAL Lab Routine Generalized abdominal pain History of acute pancreatitis Expected: 12/26/2023, Expires: 03/26/2024 [facility] Comment on above: Expected: 12/26/2023, Expires: Start: 12-26-2023 End: 03-26-2024 Comprehensive metabolic 2000 panel - Serum or Plasma COMPREHENSIVE METABOLIC PANEL Lab Routine Generalized abdominal pain History of acute pancreatitis Expected: 12/26/2023, Expires: 03/26/2024 [facility] Work Phone: Comment on above: Expected: 12/26/2023, Expires: Start: 12-26-2023 End: 03-26-2024 Erythrocyte sedimentation rate SEDIMENTATION RATE, WESTERGREN Lab Routine Generalized abdominal pain History of acute pancreatitis Expected: 12/26/2023, Expires: 03/26/2024 [facility] Comment on above: Expected: 12/26/2023, Expires: Start: 12-26-2023 End: 03-26-2024 Lipase [Enzymatic activity/volume] in Serum or Plasma LIPASE Lab Routine Generalized abdominal pain History of acute pancreatitis Expected: 12/26/2023, Expires: 03/26/2024 [facility] Comment on above: Expected: 12/26/2023, Expires: Start: 12-10-2023 End: 12-10-2023 Patient encounter procedure 12/10/2023 12:20 PM EDT Office Visit Rheumatology [address] [place] [address] Nae Ibarra MD [address] [place] [address] for fatigue fu OV. Rheumatology Comment on above: for fatigue fu OV. Start: 11-21-2023 End: 11-21-2023 Admission to same day surgery center 11/21/2023 3:15 PM EDT - 11/21/2023 5:45 PM EDT Surgery [facility] [address] [place] [id number] [place] [address] [address] [place] [address] [id number] LAPAROSCOPIC CHOLECYSTECTOMY [facility] Comment on above: LAPAROSCOPIC CHOLECYSTECTOMY Start: 11-21-2023 End: 11-21-2023 Laparoscopy surg cholecystectomy LAPAROSCOPIC CHOLECYSTECTOMY Cholecystitis 11/21/2023 3:15 PM EDT [facility] Start: 11-21-2023 Subsequent hospital visit by physician 11/21/2023 3:15 PM EDT Hospital Encounter [facility] [address] [place] [address] [place] [address] [facility] [address] [place] [address] Cholecystitis [K81.9] [facility] Comment on above: Cholecystitis [K81.9] Start: 07-23-2023 Behavioral Health Screening Behavioral Health Screening [facility] Start: 07-23-2023 Depression Assessment Depression Assessment [facility] Start: 03-23-2023 Covid-19 Vaccine () Covid-19 Vaccine () [facility] Start: 03-23-2023 Influenza vaccination [facility] Start: 02-06-2023 End: 04-08-2023 Amylase [Enzymatic activity/volume] in Serum or Plasma AMYLASE BLD Lab Routine Generalized abdominal pain Chronic pancreatitis, unspecified pancreatitis type (HCC) Intestinal malabsorption, unspecified type Expected: 02/06/2023, Expires: 04/08/2023 [facility] Work Phone: Comment on above: Expected: 02/06/2023, Expires: 3 Start: 02-06-2023 End: 04-08-2023 CELIAC SCREEN WITH REFLEX CELIAC SCREEN WITH REFLEX Lab Routine Generalized abdominal pain Chronic pancreatitis, unspecified pancreatitis type (HCC) Intestinal malabsorption, unspecified type Expected: 02/06/2023, Expires: 04/08/2023 [facility] Work Phone: Comment on above: Expected: 02/06/2023, Expires: 3 Start: 02-06-2023 End: 04-08-2023 Comprehensive metabolic 2000 panel - Serum or Plasma COMP METABOLIC PANEL Lab Routine Generalized abdominal pain Chronic pancreatitis, unspecified pancreatitis type (HCC) Intestinal malabsorption, unspecified type Expected: 02/06/2023, Expires: 04/08/2023 [facility] Work Phone: Comment on above: Expected: 02/06/2023, Expires: 3 Start: 02-06-2023 End: 04-08-2023 IGG SUBCLASS 1,2,3,4 IGG SUBCLASS 1,2,3,4 Lab Routine Generalized abdominal pain Chronic pancreatitis, unspecified pancreatitis type (HCC) Intestinal malabsorption, unspecified type Expected: 02/06/2023, Expires: 04/08/2023 [facility] Work Phone: Comment on above: Expected: 02/06/2023, Expires: 3 Start: 02-06-2023 End: 04-08-2023 Lipase [Enzymatic activity/volume] in Serum or Plasma LIPASE BLD Lab Routine Generalized abdominal pain Chronic pancreatitis, unspecified pancreatitis type (HCC) Intestinal malabsorption, unspecified type Expected: 02/06/2023, Expires: 04/08/2023 [facility] Work Phone: Comment on above: Expected: 02/06/2023, Expires: 3 Start: 02-06-2023 End: 04-08-2023 Lipid 1996 panel - Serum or Plasma LIPID PANEL BASIC Lab Routine Generalized abdominal pain Chronic pancreatitis, unspecified pancreatitis type (HCC) Intestinal malabsorption, unspecified type Expected: 02/06/2023, Expires: 04/08/2023 [facility] Work Phone: Comment on above: Expected: 02/06/2023, Expires: 3 Start: 02-06-2023 End: 04-08-2023 Nuclear Ab [Presence] in Serum by Immunoassay IRENA BLOOD Lab Routine Generalized abdominal pain Chronic pancreatitis, unspecified pancreatitis type (HCC) Intestinal malabsorption, unspecified type Expected: 02/06/2023, Expires: 04/08/2023 [facility] Work Phone: Comment on above: Expected: 02/06/2023, Expires: 3 Start: 07-23-2022 DEPRESSION ASSESSMENT DEPRESSION ASSESSMENT [facility] Start: 07-20-2022 End: 07-20-2022 Patient encounter procedure 07/20/2022 Office Visit Gastroenterology Irena Presley MD [address] [place] [address] General and Gastrointestinal [facility] [place] Start: 03-23-2022 Influenza vaccination INFLUENZA VACCINE (#1) [facility] Start: 03-15-2022 End: 03-15-2023 C DIFFICILE BY PCR (CLOSTRIDIUM DIFFICILE TOXIN) C DIFFICILE BY PCR (CLOSTRIDIUM DIFFICILE TOXIN) Microbiology Routine Diarrhea, unspecified type Expected: 03/15/2022, Expires: 03/15/2023 [facility] Comment on above: Expected: 03/15/2022, Expires: 3 Start: 03-15-2022 End: 03-15-2023 MOLECULAR ENTERIC PANEL, STOOL MOLECULAR ENTERIC PANEL, STOOL Fluids Routine Diarrhea, unspecified type Expected: 03/15/2022, Expires: 03/15/2023 [facility] Comment on above: Expected: 03/15/2022, Expires: 3 Start: 09-06-2021 COVID-19 VACCINE (3 - Booster for Pfizer series) COVID-19 VACCINE (3 - Booster for Pfizer series) [facility] Start: 06-01-2021 COVID-19 VACCINE (3 - Booster for Pfizer series) COVID-19 VACCINE (3 - Booster for Pfizer series) [facility] Start: 06-01-2021 COVID-19 VACCINE (3 - Pfizer series) COVID-19 VACCINE (3 - Pfizer series) [facility] Start: 02-07-2021 DTaP,Tdap and Td Vaccines (7 - Td or Tdap) DTaP,Tdap and Td Vaccines (7 - Td or Tdap) [facility] Start: 02-07-2021 DTaP/Tdap/Td Vaccines (7 - Td or Tdap) DTaP/Tdap/Td Vaccines (7 - Td or Tdap) [facility] Start: 02-07-2021 Urine microalbumin profile DTaP,Tdap,Td Vaccine (7 - Td or Tdap) [facility] Start: 11-18-2019 PAP TESTING PAP TESTING [facility] Start: 11-18-2019 Screening for malignant neoplasm of cervix [facility] Start: 2017 Third diphtheria, tetanus and acellular pertussis (DTaP) vaccination TDAP (ADULT) [facility] Start: 2017 Urine microalbumin profile [facility] Start: 2016 Depression Screening Depression Screening [facility] Start: 2016 Hepatitis C screening Hepatitis C Screening [facility] Start: 2016 HIV SCREENING HIV SCREENING [facility] Start: 2016 HIV screening HIV Screening [facility] Start: 2016 Tetanus vaccination TETANUS [facility] Start: 2014 Meningococcal B Vaccine: Consider Based On Risk (1 of 2 - Patient Seeks Protection) Meningococcal B Vaccine: Consider Based On Risk (1 of 2 - Patient Seeks Protection) [facility] Start: 2014 MENINGOCOCCAL B: Consider based on risk (1 of 2 - Patient Seeks Protection) MENINGOCOCCAL B: Consider based on risk (1 of 2 - Patient Seeks Protection) [facility] Start: 2014 Screening for Chlamydia trachomatis CHLAMYDIA SCREEN [facility] Start: 2013 HIV screening HIV SCREENING DISCUSSION [facility] Start: 2012 PEDS TO ADULT TRANSITION ANNUAL ASSESSMENT PEDS TO ADULT TRANSITION ANNUAL ASSESSMENT [facility] Start: 08-15-2011 HPV Vaccine (3 - 2-dose series) HPV Vaccine (3 - 2-dose series) [facility] Start: 08-15-2011 HPV Vaccines (3 - 2-dose series) HPV Vaccines (3 - 2-dose series) [facility] Start: 2010 [facility] Scre[facility] Start: 2010 PEDS TO ADULT TRANSITION INITIAL DISCUSSION PEDS TO ADULT TRANSITION INITIAL DISCUSSION [facility] Start: 2009 Vaccination for human papillomavirus HPV VACCINE ADOL (1 - 2-dose series) [facility] Start: 2008 MENINGOCOCCAL B: Consider based on risk (1 of 2 - Risk Bexsero 2-dose series) MENINGOCOCCAL B: Consider based on risk (1 of 2 - Risk Bexsero 2-dose series) [facility] Start: 11-18-2007 HPV VACCINE (1 - 2-dose series) HPV VACCINE (1 - 2-dose series) [facility] Start: 1998 GONORRHEA SCREEN GONORRHEA SCREEN [facility] Start: 1998 HEPATITIS B (1 of 3 - 3-dose series) HEPATITIS B (1 of 3 - 3-dose series) [facility] Start: 1998 Hepatitis B Vaccine (1 of 3 - 3-dose series) Hepatitis B Vaccine (1 of 3 - 3-dose series) [facility] Start: 1998 Hepatitis C antibody, confirmatory test HEPATITIS C VIRUS SCREENING [facility] Start: 1998 HIV screening HIV Screening [facility] Start: 1998 Lipid panel Lipid Panel [facility] Start: 1998 Yearly Adult Physical Yearly Adult Physical [facility] Blood type and Indir ect antibody screen panel - Blood Type And Screen Lab Timed As needed (Lab) for 1 Occurrences starting 04/16/2024 [facility] Service Area Work Phone: Comment on above: As needed (Lab) for 1 Occurrences starti 04/16/2024 End: 07-12-2024 Ct angio abd&plvis cntrst mtrl w/wo cntrst img CTA ABD/PEL W IVCON Radiology Routine Generalized abdominal pain RUQ pain Chronic recurrent pancreatitis (HCC) Diarrhea, unspecified type 1 Occurrences starting 06/13/2023 until 07/12/2024 [facility] Work Phone: Comment on above: 1 Occurrences starting 06/13/2023 until 07/12/2024 Dermatopathology exam Dermatopat hology exam Pathology and Cytology Timed Neoplasm of unspecified behavior of bone, soft tissue, and skin Release Upon Ordering for 1 Occurrences starting 07/01/2024 [facility] Work Phone: Comment on above: Release Upon Ordering for 1 Occurrences starting 07/01/2024 End: 10-21-2024 Echocardiography ECHO Cardiology Routine Other supraventricular tachycardia (HCC) Palpitations 1 Occurrences starting 10/22/2023 until 10/21/2024 [facility] Work Phone: Comment on above: 1 Occurrences starting 10/22/2023 until 10/21/2024 End: 04-16-2024 Moderate Sedation Moderate Sedation Procedures Routine Once for 1 Occurrences starting 04/16/2024 until 04/16/2024 [facility] Work Phone: Comment on above: Once for 1 Occurrences starting 04/16/20 until 04/16/2024 End: 04-14-2024 Mri abdomen w/o & w/contrast material MRI ABDOMEN WO/W IVCON Radiology Routine Chronic recurrent pancreatitis (HCC) 1 Occurrences starting 03/16/2023 until 04/14/2024 [facility] Work Phone: Comment on above: 1 Occurrences starting 03/16/2023 until 04/14/2024 End: 01-26-2025 NM Stomach Views for gastric emptying solid phase W radionuclide PO NM GASTRIC EMPTYING SOLID Radiology Routine Upper abdominal pain Dyspepsia and disorder of function of stomach Dyspepsia 1 Occurrences starting 12/28/2023 until 01/26/2025 [facility] Comment on above: 1 Occurrences starting 12/28/2023 until 01/26/2025 OUTSIDE VENDOR CARDI AC OUTPATIENT EXTENDED RHYTHM RECORDING (WITHOUT TELEMETRY) OUTSIDE VENDOR CARDIAC OUTPATIENT EXTENDED RHYTHM RECORDING (WITHOUT TELEMETRY) Holter Routine Other supraventricular tachycardia (HCC) Palpitations Ordered: 10/22/2023 [facility] Work Phone: Comment on above: Ordered: 10/22/2023 End: 01-26-2025 RF Gastrointestinal tract upper Views W barium contrast PO XR UPPER GI SINGLE CONTRAST Radiology Routine Upper abdominal pain Dyspepsia and disorder of function of stomach 1 Occurrences starting 12/28/2023 until 01/26/2025 [facility] Work Phone: Comment on above: 1 Occurrences starting 12/28/2023 until 01/26/2025 Study Interpretation of outside study [facility] Surgical pathology study Surgica l Pathology Exam Pathology and Cytology Timed Median arcuate ligament syndrome (CMS-HCC) Release Upon Ordering for 1 Occurrences starting 04/16/2024 [facility] Work Phone: Comment on above: Release Upon Ordering for 1 Occurrences starting 04/16/2024 Tissue Pathology bio psy report [facility] Work Phone: Comment on above: Release Upon Ordering for 1 Occurrences starting 09/03/2024, 1 completed [facility] Immunizations Immunization Date Immunization Notes Care Provider Fa cili 05-23-2011 human papilloma viru s vaccine, quadrivalent Elif Rich MD Work Phone: [facility] 05-23-2011 varicella virus vaccine Boone Rich MD Work Phone: [facility] 05-23-2011 HPV, unspecified formulation Dane Merida MD Work Phone: [facility] Work Phone: 02-07-2011 human papilloma viru s vaccine, quadrivalent Elif Rich MD Work Phone: [facility] 02-07-2011 meningococcal polysaccharide (groups A, C, Y and W-135) diphtheria toxoid conjugate vaccine (MCV4P) Elif Rich MD Work Phone: [facility] 02-07-2011 tetanus toxoid, redu anastasiia diphtheria toxoid, and acellular pertussis vaccine, adsorbed Elif Rich MD Work Phone: [facility] 02-07-2011 varicella virus vaccine Boone Rich MD Work Phone: [facility] 01-27-2004 diphtheria, tetanus toxoids and acellular pertussis vaccine Elif Rich MD Work Phone: [facility] 01-27-2004 measles, mumps and rubella virus vaccine Elif Rich MD Work Phone: [facility] 01-27-2004 poliovirus vaccine, inactivated Elif Rich MD Work Phone: [facility] 05-21-2000 diphtheria, tetanus toxoids and acellular pertussis vaccine, unspecified formulation Elif Rich MD Work Phone: [facility] 05-21-2000 pneumococcal conjuga te vaccine, 7 valent Elif Rich MD Work Phone: [facility] 02-22-2000 haemophilus influenz ae type b vaccine, conjugate unspecified formulation Elif Rich MD Work Phone: [facility] 02-22-2000 measles, mumps and rubella virus vaccine Elif Rich MD Work Phone: [facility] 02-22-2000 poliovirus vaccine, unspecified formulation Elif Rich MD Work Phone: [facility] 11-24-1999 varicella virus vaccine Boone Rich MD Work Phone: [facility] 05-16-1999 diphtheria, tetanus toxoids and acellular pertussis vaccine, unspecified formulation Elif Rich MD Work Phone: [facility] 05-16-1999 haemophilus influenz ae type b vaccine, conjugate unspecified formulation Elif Rich MD Work Phone: [facility] 05-16-1999 hepatitis B vaccine, pediatric or pediatric/adolescent dosage Elif Rich MD Work Phone: [facility] 05-16-1999 poliovirus vaccine, unspecified formulation Elif Rich MD Work Phone: [facility] 03-18-1999 diphtheria, tetanus toxoids and acellular pertussis vaccine, unspecified formulation Elif Rich MD Work Phone: [facility] 03-18-1999 haemophilus influenz ae type b vaccine, conjugate unspecified formulation Elif Rich MD Work Phone: [facility] 03-18-1999 poliovirus vaccine, unspecified formulation Elif Rich MD Work Phone: [facility] 01-14-1999 diphtheria, tetanus toxoids and acellular pertussis vaccine, unspecified formulation Elif Rich MD Work Phone: [facility] 01-14-1999 haemophilus influenz ae type b vaccine, conjugate unspecified formulation Elif Rich MD Work Phone: [facility] 01-14-1999 hepatitis B vaccine, pediatric or pediatric/adolescent dosage Elif Rich MD Work Phone: [facility] 01-14-1999 poliovirus vaccine, unspecified formulation Elif Rich MD Work Phone: [facility] 1998 hepatitis B vaccine, pediatric or pediatric/adolescent dosage Elif Rich MD Work Phone: [facility] Payers Date Payer Category Payer Self-pay 2022 [employer] [id number] 2022 [employer] [id number] 2020 Unknown [id number] 2019 Unknown [id number] 2. [id number] 1998 Unknown [id number] 2.16.8 40.1.563976.3.579.2.647 1998 Unknown [id number] 2.16. 840.1.450243.3.579.2.594 1998 Unknown [id number] 2.16. 840.1.578761.3.579.2.594 1998 Unknown [id number] 2.16.84 0.1.802686.3.579.2.593 1998 Unknown [id number] 2.16.84 0.1.626699.3.579.2.593 1998 Unknown [id number] 2.16.84 0.1.244023.3.579.2.593 1998 Unknown [id number] 2.16.84 0.1.898172.3.579.2.593 1998 Unknown [id number] 2.16.84 0.1.987701.3.579.2.593 1998 Unknown [id number] 2.16.84 0.1.853758.3.579.2.593 1998 Unknown [id number] 2.16.84 0.1.912757.3.579.2.593 1998 Unknown [id number] 2.16.84 0.1.582506.3.579.2.593 1998 Unknown [id number] 2.16.84 0.1.892216.3.579.2.593 1998 Unknown [id number] 2.16.84 0.1.438531.3.579.2.593 1998 Unknown [id number] 2.16.84 0.1.590613.3.579.2.593 1998 Unknown [id number] 2.16.84 0.1.119512.3.579.2.593 1998 Unknown [id number] 2.16.84 0.1.377743.3.579.2.593 1998 Unknown [id number] 2.16.84 0.1.269365.3.579.2.593 1998 Unknown [id number] 2.16.84 0.1.045319.3.579.2.593 1998 Unknown [id number] 2.16.84 0.1.681159.3.579.2.593 1998 Unknown [id number] 2.16.84 0.1.839653.3.579.2.593 1998 Unknown [id number] 2.16.84 0.1.627233.3.579.2.593 1998 Unknown [id number] 2.16.84 0.1.964150.3.579.2.593 1998 Unknown [id number] 2.16.84 0.1.666263.3.579.2.593 1998 Unknown [id number] 2.16.84 0.1.953390.3.579.2.593 1998 Unknown [id number] 2.16.84 0.1.633108.3.579.2.593 1998 Unknown [id number] 2.16.84 0.1.466548.3.579.2.593 1998 Unknown [id number] 2.16.84 0.1.357386.3.579.2.593 1998 Unknown [id number] 2.16.84 0.1.813437.3.579.2.593 1998 Unknown [id number] 2.16.84 0.1.884803.3.579.2.593 1998 Unknown [id number] 2.16.84 0.1.223216.3.579.2.593 1998 Unknown [id number] 2.16.84 0.1.375905.3.579.2.593 1998 Unknown [id number] 2.16.84 0.1.374022.3.579.2.593 1998 Unknown [id number] 2.16.84 0.1.805040.3.579.2.593 1998 Unknown [id number] 2.16.84 0.1.439401.3.579.2.593 1998 Unknown [id number] 2.16.84 0.1.057200.3.579.2.593 1998 Unknown [id number] 2.16.84 0.1.356611.3.579.2.1259 1998 Unknown [id number] 2.16.84 0.1.562799.3.579.2.1259 1998 Unknown [id number] 2.16.84 0.1.158654.3.579.2.1259 Unknown [id number] 2.16.8 40.1.749563.3.579.2.531 Unknown [id number] 2.16.8 40.1.812468.3.579.2.531 Social History Date Type Detail Facility Unknown if ever smoked [facility] Other Start: 12-08-2022 End: 02-06-2023 Sex Assigned At [facility] Start: 03-15-2022 End: 03-19-2024 Tobacco smoking status NHIS Never smoked tobacco [facility] Start: 03-15-2022 End: 11-15-2023 Tobacco use and exposure Smokeless tobacco non-user [facility] Start: 03-15-2022 End: 07-03-2024 Alcohol intake Current drinker of alcohol (finding) [facility] Start: 03-15-2022 History SDOH Alcohol Comment social [facility] Start: 1998 Sex Assigned At Not on file [facility] Start: 12-08-2022 Tobacco smoking status NHIS Ex-smoker [facility] History of tobacco use Current smoker [facility] Start: 1998 Sex Assigned At Female [facility] Start: 12-08-2022 End: 02-06-2023 History of Social function [facility] Adult Depression Screening Assessment 1 [facility] Start: 12-02-2020 Gender identity Identifies as female gender (finding) [facility] Start: 12-02-2020 Sexual orientation Heterosexual (finding) [facility] Tobacco smoking stat us WAIS Tobacco smoking consumption unknown [facility] Start: 06-06-2023 End: 09-03-2024 Alcohol intake Ex-drinker (finding) [facility] Start: 11-15-2023 Alcohol Comment socially- rare [facility] Start: 12-12-2022 Alcohol Comment 1-2 drinks/monthly or less [facility] How often to you hav e a drink containing alcohol? Never [facility] Work Phone: Start: 01-26-2024 End: 04-16-2024 Exposure to SARS-CoV-2 (event) Not sure [facility] Start: 07-24-2024 End: 10-24-2024 Sex Female (finding) [facility] Clinical Notes 12-02-2020 to 09-03-2024 Dara Butler Jr., DO - 09/03/2024 12:30 PM Dara Fraser Jr., DO - 09/03/2024 12:30 PM Sera Loving RN - 09/03/2024 10:14 AM Sera Loving RN - 09/03/2024 10:14 AM EST Note Date & Type Note Facility 09-03-2024 History and physical note HISTORY AND PHYSICAL EXAMINATION SERVICE DATE: 09/03/2024 SERVICE TIME: 10:18 AM Chief Complaint: diarrhea HPI:This is a 23 year old female who presents with diarrhea and lower abd pain. History of cholecystectomy and appendectomy. Negative family history. PAST MEDICAL HISTORY Diagnosis Date Pancreatitis PAST SURGICAL HISTORY Procedure Laterality Date COLONOSCOPY EGD ENDOMETRIAL WASHINGS laproscopicaly LAPAROSCOPIC CHOLECYSTECTOMY 11/21/2023 FAMILY HISTORY Problem Relation Age of Onset Stroke Mother Heart Father Prostate Cancer Father Colon Cancer No Family History Social History Tobacco Use Smoking status: Never Smokeless tobacco: Never Vaping Use Vaping status: Never Used Substance Use Topics Alcohol use: Not Currently Comment: socially- rare Drug use: Not Currently Types: Marijuana Comment: rare edible (Not in a hospital admission) ALLERGIES Allergen Reactions Metronidazole Mental Status Change, Diarrhea, GI Upset, Hives, Other: See Comments, Rash, Shortness of Breath, Unknown, Vomiting COMPLETE REVIEW OF SYSTEMS: GENERAL: No weight loss, malaise or fevers RESPIRATORY: Negative for cough, hemoptysis, wheezing, COPD, dyspnea or shortness of breath CARDIOVASCULAR: Negative for chest pain, leg swelling, hypertension, CHF or palpitations GI: Positive for abdominal discomfort , diarrhea BP 106/69 Pulse 68 Temp (Src) 98.4 (Temporal) Resp 16 Ht 5' 4 (1.63m) Wt 115 lb (52.2kg) SpO2 100% LMP 01/30/2024 BMI 19.73 kg/(m^2). O2 Therapy: Room Air PHYSICAL EXAM: Physical Exam Performed: GENERAL: Alert, no distress, cooperative LUNGS: Lungs clear to auscultation, Good diaphragmatic excursion CARDIAC: Normal S1 and S2; no rubs, murmurs, or gallops ABDOMEN: Abdomen soft, non-tender, BS normal, No masses or organomegaly EXTREMITIES: Extremities normal, no deformities, edema, clubbing or skin discoloration. Good capillary refill., No ulcers (R10.84) Generalized abdominal pain Plan: COLONOSCOPY DIAGNOSTIC, COLONOSCOPY DIAGNOSTIC (R19.4) Change in bowel habits Plan: COLONOSCOPY DIAGNOSTIC, COLONOSCOPY DIAGNOSTIC SIGNATURE: Dara Butler Jr., DO PATIENT NAME: Chioma Alonzo DATE: September 03, 2024 TIME: 10:18 AM PAGER/CONTACT #: [facility] 09-03-2024 History and physical note HISTORY AND PHYSICAL EXAMINATION SERVICE DATE: 09/03/2024 SERVICE TIME: 10:18 AM Chief Complaint: diarrhea HPI:This is a 23 year old female who presents with diarrhea and lower abd pain. History of cholecystectomy and appendectomy. Negative family history. PAST MEDICAL HISTORY Diagnosis Date Pancreatitis PAST SURGICAL HISTORY Procedure Laterality Date COLONOSCOPY EGD ENDOMETRIAL WASHINGS laproscopicaly LAPAROSCOPIC CHOLECYSTECTOMY 11/21/2023 FAMILY HISTORY Problem Relation Age of Onset Stroke Mother Heart Father Prostate Cancer Father Colon Cancer No Family History Social History Tobacco Use Smoking status: Never Smokeless tobacco: Never Vaping Use Vaping status: Never Used Substance Use Topics Alcohol use: Not Currently Comment: socially- rare Drug use: Not Currently Types: Marijuana Comment: rare edible (Not in a hospital admission) ALLERGIES Allergen Reactions Metronidazole Mental Status Change, Diarrhea, GI Upset, Hives, Other: See Comments, Rash, Shortness of Breath, Unknown, Vomiting COMPLETE REVIEW OF SYSTEMS: GENERAL: No weight loss, malaise or fevers RESPIRATORY: Negative for cough, hemoptysis, wheezing, COPD, dyspnea or shortness of breath CARDIOVASCULAR: Negative for chest pain, leg swelling, hypertension, CHF or palpitations GI: Positive for abdominal discomfort , diarrhea BP 106/69 Pulse 68 Temp (Src) 98.4 (Temporal) Resp 16 Ht 5' 4 (1.63m) Wt 115 lb (52.2kg) SpO2 100% LMP 01/30/2024 BMI 19.73 kg/(m^2). O2 Therapy: Room Air PHYSICAL EXAM: Physical Exam Performed: GENERAL: Alert, no distress, cooperative LUNGS: Lungs clear to auscultation, Good diaphragmatic excursion CARDIAC: Normal S1 and S2; no rubs, murmurs, or gallops ABDOMEN: Abdomen soft, non-tender, BS normal, No masses or organomegaly EXTREMITIES: Extremities normal, no deformities, edema, clubbing or skin discoloration. Good capillary refill., No ulcers (R10.84) Generalized abdominal pain Plan: COLONOSCOPY DIAGNOSTIC, COLONOSCOPY DIAGNOSTIC (R19.4) Change in bowel habits Plan: COLONOSCOPY DIAGNOSTIC, COLONOSCOPY DIAGNOSTIC SIGNATURE: Dara Butler Jr., DO PATIENT NAME: Chioma Alonzo DATE: September 03, 2024 TIME: 10:18 AM PAGER/CONTACT #: documented in this encounter [facility] 09-03-2024 Nurse Note PRE OP LEARNING ASSESSMENT PROCEDURE/SURGERY: GI PROCEDURES: Colonoscopy READINESS TO LEARN COGNITIVE ABILITY: Alert and oriented MOTIVATION TO LEARN: Eager FAMILY SUPPORT: None - Unavailable/disinterested PATIENT LEARNS BEST BY: Individual Instruction FACTORS AFFECTING LEARNING: None PHYSICAL LIMITATIONS AFFECTING LEARNING: None Pt declined follow up phone. Electronically Signed By: Sera Garner RN In Department: [facility] ENDOSCOPY [facility] 09-03-2024 Nurse Note PRE OP LEARNING ASSESSMENT PROCEDURE/SURGERY: GI PROCEDURES: Colonoscopy READINESS TO LEARN COGNITIVE ABILITY: Alert and oriented MOTIVATION TO LEARN: Eager FAMILY SUPPORT: None - Unavailable/disinterested PATIENT LEARNS BEST BY: Individual Instruction FACTORS AFFECTING LEARNING: None PHYSICAL LIMITATIONS AFFECTING LEARNING: None Pt declined follow up phone. Electronically Signed By: Sera Garner RN In Department: [facility] documented in this encounter [facility] 08-22-2024 Telephone encounter Note Case message sent to surgery pool to cancel with Dr. Huffman 08/27 per patient request. [facility] 08-22-2024 Miscellaneous Notes Case message sent to surgery pool to cancel with Dr. Huffman 08/27 per patient request. documented in this encounter [facility] 07-28-2024 Note Attestation signed by Paula Huggins MD at 07/28/2024 3:28 PM By using the attestations below, the signing clinician agrees that I have read and verify that the documentation has been personally reviewed by me and ensure that the documentation accurately reflects the encounter. GC: I personally saw this patient on the day of the encounter, performed the murray portion(s) of the service and participated in the management and confirm the resident's documentation. Please note there may be an additional personal documentation from me. [facility] Gastroenterology Follow-Up Patient Visit CHIEF COMPLAINT Chief Complaint Patient presents with Follow-up Recurrent C Diff Nausea Diarrhea Constipation HISTORY OF PRESENT ILLNESS: Chioma Alonzo is a 23 y.o. female with PMHx of idiopathic pancreatitis, [...] calprotectin, and enteric panel all negative (08/30). INTERVAL HISTORY 07/28/2024: The patient has a history of two fecal microbiota transplants (FMT) and has remained Clostridium difficile (C. diff) free for 1.5 years. Recently, following a miscarriage, she experienced an episode of diarrhea lasting several weeks. C. diff PCR testing was positive, but the toxin A and B tests were negative. This suggests possible colonization rather than an active infection. Currently, the patient has returned to her baseline symptoms, with 2-3 bowel movements per day. The stool consistency varies, ranging from semi-formed to solid and sometimes liquid. We discussed the potential benefit of adding fiber supplementation, such as Citrucel 500 mg tablets once daily , to help regulate bowel function. We discuss with the patient that her symptoms sometimes worsening with the period and it might be related to the endometriosis related. She is travelling soon to [place] next 15 days and was mentioning that she was having some UTI symptoms andrequested some medication just in case she starting the antibiotics for C diff and we instructed her that in case of confirming the UTI and starting the treatment to communicate with us to update (more content not included)... [facility] 07-17-2024 Telephone encounter Note Left message that below message viewable on patient's MC. Requested return call if unable to view message. [facility] 07-17-2024 Miscellaneous Notes Left message that below message viewable on patient's MC. Requested return call if unable to view message. Please Call patient if MyChart note not read to review results/released to My Chart if tests completed at [facility]: normal labs. Take over the counter vitamin D 2856-3402 International Units daily with food. Happy to further review and discuss at follow up visit. Thank you. 07/15/24 normal vitamin D 39.8, vitamin b12-841; documented in this encounter [facility] 07-15-2024 Telephone encounter Note Please Call patient if MyChart note not read to review results/released to My Chart if tests completed at [facility]: normal labs. Take over the counter vitamin D 2453-4272 International Units daily with food. Happy to further review and discuss at follow up visit. Thank you. 07/15/24 normal vitamin D 39.8, vitamin b12-841; [facility] 07-15-2024 History of Presen t illness Narrative Face to face follow up for fatigue/low vitamin D. Today's visit 07/15/24:taking lexapro, gabapentin, zofran, mvi. NO extra vitamin D.NO recent oral steroids. stable eye exam. Occasional skin changes and hairloss. Tired. Lots of +C.diff infections, had two fecal transplants and may have more treatments since recent test abnormal. 08/27/24 due for celiac block from pain clinic 04/30/24 saw pain clinic for right sided abd pain 04/16/24 pathTransitional mucosa with chemical gastritis (nonsteroidal anti-inflammatory drugs, bile reflux, etc.) 03/24/24 in ED 03/19/24 seen for anxiety 02/26/24 saw GI for epigastric pain 12/27/23 normal cbc, cmp, esr 12, crp <0.3;negative lipase 22, amylase 44; 11/21/23 s/p cholesterol A. Gallbladder, cholecystectomy: -Gallbladder with no diagnostic abnormality. 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 NO swelling. Chronic current pain in neck upper back. More pain since off nsaids. Mild response with tylenol, misses motrin 00mg.Reports pain 5/10. Has minimal AM stiffness. Feels safe at home. Has enough food, supplies and medications. Overall mildly uncomfortable but happy with rheum care. No falls/fx/trauma/illness/oral sores/rash/hairloss/jaw pain/dysphagia/epistaxis/hemopt ysis since last visit. No adverse effects with meds. No other complaints. Patient denies fever, chills, cp, dyspnea, nausea, vomiting, night sweats, scalp tenderness, visual changes, mike, bowel/bladder changes, weight changes or other complaints. 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 Diagnosed with pancreatitis 14y/o now with chronic pancreatitis per recent CT abd/pelvis. No gallbladder stones. No alcohol, pop. Will look into for pelvic inflammatory disease. With work up soon. 09/2021 miscarriage. Not on control. Ok with future . Still tired. Had fecal transplant x 2 for C.diff x 3. Reports hairloss, memory changes, nail changes, headache, rash, see ROS symptoms below. saw functional medication. Has not seen allergy. Still has hives when exposed to heat/bathtub, outside hot/sun. No recent oral steroids. Walking nightly, hiking exercise. no swelling. Chronic current pain in back pain, sore after activity/mowing lawn sore arms, less knee/shoulder pain. Reports pain 7-8/10. Has minimal AM stiffness. Has episodes of fatigue, lightheadedness, concerned she may have low sugar. COVID vaccine 03/16/21, 04/06/21. Feels safe at home. Has enough food, supplies and medications. Overall mildly uncomfortable but happy with rheum care. No falls/fx/trauma/illness/oral sores/rash/hairloss/jaw pain/dysphagia/epistaxis/hemopt ysis since last visit. No adverse effects with meds. No other complaints. Patient denies fever, chills, cp, dyspnea, nausea, vomiting, night sweats, scalp tenderness, visual changes, mike, bowel/bladder changes, weight changes or other complaints. Last visit supportive care, consult allergy/immunology for recurrent urticaria and recurrent infection care, avoid triggers, see GI for C.diff care, start prn heat/ice/otc arthritis creams, low impact weightbearing exercise as tolerated, avoid aggravating triggers, December 09, 2021 SUBJECTIVE Ms. Henao is a 21 year old female who presents for fatigue eval. Repeated infections (sinus and urinary tract infection)s once a month C.diff twice last one treated Seeing GI, chronic abdominal bloating and cramping, due for FMT at [facility] ~02/2022 Loose stools per day 3-4 per day No blood in stool weight loss during infection 110lb, now gained back weight Pain in L shoulder, back of L knee, neck from tension Pain comes and goes Negative L shoulder xrays and MRI 2020, treated with PT x 8weeks, some improvement Ultrasound of L knee, negative dvt rashes on UEs/LEs when in sun, itching when in hot bath/hives, hives with C.diff Reports pain 09/29 No falls/fx/trauma/illness/oral sores/rash/hairloss/jaw pain/dysphagia/epistaxis/hemopt ysis. No adverse effects with meds. No other complaints. Patient denies fever, chills, cp, dyspnea, nausea, vomiting, night sweats, scalp tenderness, visual changes, mike, bowel/bladder changes, weight changes or other complaints. COMPLETE REVIEW OF SYSTEMS: RHEUM. ROS: Joint pain: yes L shoulder, L knee, neck Joint swelling: back L knee Am stiffness: yes 1hr Low back pain: no Dactylitis: no H/o precedent/frequent infection(s): as above Enthesopathy/Cassie's/heel/chitra ntar tenderness: no Skin thickening, psoriasis, photosensitivity, purpura: rashes on UEs/LEs when in sun, itching when in hot bath/hives, hives with C.diff Nail changes: no Alpecia, patchy: yes with infection Eye inflammation: no SICCA: no Oral/nasal/genital ulcers: no GI problems-diarrhea/bleeding/IBD/ Gluten intolerence/Dysphagia: gerd Fatigue: yes, sleeps 7 hr/night PMR/GCA ROS: negative Patient denies history of Gout or Pseudogout, Psoriasis, Rheumatic Fever, GERD, PUD, Liver Disease, Hepatitis , Kidney Disease, Kidney Stones, DM, HTN, CAD, Dyslipidemia, PAD, Sinusitis, Asthma, TB infection or exposure, Pneumonias, Anemia, Seizures, Stroke, MS, Clots, Cancer, Thyroid Disease, Transfusions, Tattoos and Alcohol dependency. Other ROS:The remainder of the review of systems is negative. All other reviewed and negative other than HPI. PATIENT REPORTS: Cardiac stress test:no Breast exam:negative Pap exam: normal, last menses early November/regular, not taking hormones; G1, P0, 1miscarriage 10/2021 Colonoscopy: outside f 2020 zach rawls Bone Density:no History of Fractures:no Height Loss: no IMMUNIZATION HX: Immunization History Administered Date(s) Administered COVID-19 original vaccine, age 12+ yr, monovalent ([employer] - PURPLE TOP) 03/16/2021 04/06/2021 Pneumovax no Flu shot no Tetanus yes Last PPD: unsure PAST MEDICAL HISTORY: PMH headaches, s/p wisdom teeth extraction, s/p mole back removed PAST SURGICAL HISTORY: s/p wisdom teeth extraction, s/p mole back removed FAMILY HISTORY: mother-healthy;father- osteoarthritis;sister- sick frequently; 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 Smoking socially etoh occasionally No gout MEDICATIONS: reviewed medlist 07/15/24 Calcium no Vitamin D mvi CURRENT ALLERGIES: Allergies As of Date: 07/15/2024 Allergen Noted Reaction METRONIDAZOLE 09/07/2020 Mental Status Change, Diarrhea, GI Upset, Hives, Other: See Comments, Rash, Shortness of Breath, Unknown, and Vomiting Fully Assessed 04/30/2024 TESTS:All Diagnostic tests reviewed for today's visit: 03/16/23 borderline cholesterol 202;normal rest of cbc, cmp, crp <0.3, esr 2, vitamin D 32.5, lipase 20, amylase 43;negatvei celic, IGG subclasses;negative irena; 12/08/22 low vitamin D 24.5;normal cbc, cmp, esr 2, crp<0.3, uric acid 3.5, vitamin b12-594;negative rf<10, ccp<15, irena ifa, hepatitis panel, quantiferon tb; Smoot 12/01/22 normal NM hepatobiliary scan with E Smoot 10/31/22 [facility] RUQ- 1.6cm simple cyst involving the right kidney Sg 10/18/22 CT abd/pelvis- poorly defined margins of head of pancreas, sequela of chronic pancreatitis vs mild acute pancreatitis, suspect collapsing right ovarian cyst 2.5cm diameter within posterior right pelvis, heterogenous enhancement and slightly indistinct margins of the uterus with mild increased density surrounding fat, this could represent fluid from the ruptured right ovarian cyst. Consideration is also given to inflammatory changes such as pelvic inflammatory disease Component Latest Ref Rng & Units 12/02/2020 IRENA Negative Negative IRENA Titer Negative Negative IRENA Pattern Not applicable for negative result. WSR 0 - 20 mm/hr 2 CRP <0.9 mg/dL <0.3 CK 42 - 196 U/L 58 Aldolase 1.5 - 8.1 U/L 4.1 LD 135 - 214 U/L 152 IgM 40 - 230 mg/dL 194 IgA 70 - 400 mg/dL 203 IgG 700 - 1,600 mg/dL 1,097 PHYSICAL EXA:reviewed vitals BP 99/61 Pulse 80 Wt 52.2 kg (115 lb) LMP 01/30/2024 (Approximate) BMI 19.74 kg/m General Appearance: WD/WN, NAD. Appropriate grooming. Very pleasant. Ambulates fair without assistance or without assistive devices, slender, good mood, speaks in full sentences without distress SKIN: No rash, no psoriasis, no purpura, no ulcers, no skin thickening/tightness, no telangiectasias. HEENT: No patchy alopecia, normal temporal artery pulsations, non-tender, scalp non-tender, no conjunctival injection or icterus, no oral ulcers, no thrush, normal nasal mucosa, no sinus tenderness, normal TM's. no glasses, fair dentition NECK: neck supple w/o masses, no thyromegaly, no LAD. LUNGS: CTA, Good respiratory effort. HEART: RRR, - m/r/g ABDOMEN: soft, non-tender, no HSM/masses/bruits. EXTREMITIES: Adequate pulses b/l UE ; No clubbing,discoloration,scleroda ctyly, periungual erythema, digital ulcers, nail pitting, edema, varicosities. MUSCULOSK: No joint deformities, no rheumatoid nodules, calcifications or tophi. No SI tenderness, no cassie's tenderness, no heel/plantar tenderness, lumbar flexion full, negative Nissa's test, tinel's and nan tests Swoll JTS:no Tend. JTS:upper/mid back, neck, some L shoulder, less L knee, decreased range of motion due to pain; no warmth/erythema No clinical synovitis in the DIP's, PIP's, MCP's, wrists, elbows, shoulders, knees, ankles, midfoot, or toes. no knee effusions bilateral. Shoulder exam:see above; no warmth/erythema Hip rom without pain LIMITATION of Motion of Joints: yes Thoracic/Lumbar Spine: No percussion tenderness SLR:negative No instability in any upper or lower extremity joints. NEURO: Mental Status: alert and oriented x 3, anxious, CN II - XII grossly intact Motor: 5/5 proximally and distally b/l Sensory: intact to fine touch TENDER POINTS: 0/18 Gait: see above Toe and heel walk normal. Tone: normal IMPRESSION/DIAGNOSIS:07/15/24 R53.82 Chronic fatigue (primary encounter diagnosis) E53.8 Vitamin B12 deficiency E55.9 Vitamin D deficiency R10.84 Generalized abdominal pain L50.9 Urticaria L56.8 Photosensitivity M54.50, G89.29 Chronic bilateral low back pain without sciatica M54.2 Cervicalgia M54.9 Upper back pain Z79.899 Long-term use of high-risk medication Ms. Henao is a 23 year old Wfemale with PMH headaches, s/p wisdom teeth extraction, s/p mole back removed presents with Repeated infections (sinus and urinary tract infection)s once a month C.diff twice last one treated Seeing GI, chronic abdominal bloating and cramping, due for FMT at [facility] ~02/2022 Loose stools per day 3-4 per day No blood in stool weight loss during infection 110lb, now gained back weight Pain in L shoulder, back of L knee, neck from tension Pain comes and goes Negative L shoulder xrays and MRI 2020, treated with PT x 8weeks, some improvement Ultrasound of L knee, negative dvt rashes on UEs/LEs when in sun, itching when in hot bath/hives, hives with C.diff Reports pain 09/29 Showed Photos of hives on cellphone Has findings with recurrent idiopathic urticaria, chronic fatigue, here due for labs. Diagnosed with pancreatitis 14y/o now with chronic pancreatitis per recent CT abd/pelvis. No gallbladder stones. No alcohol, pop. Will look into for pelvic inflammatory disease. With work up soon. 09/2021 miscarriage. Not on control. Ok with future . Still tired. Had fecal transplant x 2 for C.diff x 3. Reports hairloss, memory changes, nail changes, headache, rash, see ROS symptoms below. saw functional medication. Has not seen allergy. Still has hives when exposed to heat/bathtub, outside hot/sun. Chronic current pain in back pain, sore after activity/mowing lawn sore arms. Has episodes of fatigue, lightheadedness, concerned she may have low sugar. COVID vaccine 03/16/21, 04/06/21. taking lexapro, gabapentin, zofran, mvi. NO extra vitamin D.NO recent oral steroids. stable eye exam. Occasional skin changes and hairloss. Tired. Lots of +C.diff infections, had two fecal transplants and may have more treatments since recent test abnormal. 08/27/24 due for celiac block from pain clinic 04/30/24 saw pain clinic for right sided abd pain 04/16/24 pathTransitional mucosa with chemical gastritis (nonsteroidal anti-inflammatory drugs, bile reflux, etc.) 03/24/24 in ED 03/19/24 seen for anxiety 02/26/24 saw GI for epigastric pain 12/27/23 normal cbc, cmp, esr 12, crp <0.3;negative lipase 22, amylase 44; 11/21/23 s/p cholesterol A. Gallbladder, cholecystectomy: -Gallbladder with no diagnostic abnormality. 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 NO swelling. Chronic current pain in neck upper back. More pain since off nsaids. Mild response with tylenol, misses motrin 00mg.Reports pain 5/10. Has minimal AM stiffness. Feels safe at home. Has enough food, supplies and medications. Overall mildly uncomfortable but happy with rheum care. 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 RECOMMENDATION/PLAN: Office Visit on 07/15/24 VITAMIN B12 VITAMIN D 25 HYDROXY Reviewed all available labs/tests with patient Provided printed info 07/15/24 check above orders Modified 07/15/24 MYKE 0, pain 50%;12/08/22 MYKE 0, pain 70-80%;December 09, 2021 MYKE 0, pain 30%; May apply over the counter arthritis creams and or patches (biofreeze, icy hot, asper cream, tiger balm, capsacin, lidocaine, salon pas, voltaren gel, etc.) or over the counter pain patches to painful joints up to four times a day. Avoid contact with eyes. May take Extra Strength acetaminophen 500mg every 4-6hours for joint pain. Do not exceed 3000mg /day. Decrease stress Improve sleep May apply heat/ice 20minutes on and off to areas of pain Avoid aggravating triggers If needed, may take Calcium 1200mg daily with food in DIVIDED doses If labs normal, take Vitamin D 4000 International Units daily with food Recommend goal: exercising 30minutes 3-5 times a week Recommend weight-bearing aerobic exercises such as walking, dancing, low impact aerobics, elliptical machine, stair climbing, gardening flexibility exercises and strength training exercises Recommend avoiding high impact exercises such as jumping, running or jogging or movements where you bend forward and twist the waist, for instance- touching your toes, sit-ups, using row machine 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 Additional information provided with references and educational information. Bone Health Recommendations: -Bone Density: After age 70 yrs, sooner if new clinical risk factors, or systemic steroid use of 3 months or more. -Vitamin D supplementation recommended, optimal dose is the dose necessary to achieve Vitamin D 25-OH blood level in range of 40-60 ng/mL. -Recommended daily dose of calcium: 1000-1200mg total a day in divided doses. Calcium from dietary sources, if not sufficient, or if with h/o calcium nephrolithiasis would recommend Calcium Citrate supplement, as it is recommended to avoid calcium carbonate products, which as main dietary calcium source. The after visit summary has information on dietary calcium and instructions on reading calcium label and converting the %DV to mg. -Regular weight-bearing and muscle-strengthening exercise -Avoidance of tobacco smoking, excessive alcohol intake and excessive caffeine intake. -Fall and fracture precautions -Continued regular dental follow up visits and good dental/gum care Stressed the importance of following up with PCP and specialists for his/her chronic diseases, health, CV, and cancer screening and continued care. Will follow disease activity/progression and adjust therapeutic regimen to disease activity and severity. Discussed medication dosage, usage, goals of therapy, and side effects. Available test results were reviewed An additional 20minutes were spent outside of the patient visit to review records. Additional time spent with the patient to discuss their questions. Additional time spent with the patient devoted to discussing treatment strategy, planning, and implementation. Discussed findings, impression and plan with patient. Patient understands above plan; questions asked and answered. Patient agrees to plan as noted above. The above reflects my independent exam and review. I saw and examined the patient myself personally. Parts of the HPI, ROS, exam and impression/plan may have been copied from my personal previous clinical note and remain pertinent. Current changes have been made and documented today. Other parts or data were deleted if not relevant for today. Plan as outlined. Medical decision making was high complexity due to patient's, multiple symptoms, multiple advancing diseases. Total time spent on this visit, with more than 50% of time spent via video & audio (virtual) or phone or face to face with patient, in consultation, and in addition to Counseling and Coordination of Care, explanation of diagnosis, and planning of further management; I spent a total of 30 minutes on the date of the service which included preparing to talk with the patient, video & audio (virtual) or phone or [id number] patient care, completing clinical documentation, obtaining and/or reviewing separately obtained history, performing a medically appropriate examination, counseling and educating the patient/family/caregiver, ordering medications, tests, or procedures, communicating with other HCPs (not separately reported), independently interpreting results (not separately reported), communicating results to the patient/family/caregiver and care coordination (not separately reported) Follow up: 6-12months, earlier if needed Recommendations to share with referring physician/Primary care physician : Dear Dr.Douglas Jose Maria Owen MD: I had the pleasure of seeing your patient, Chioma Henao. I have enclosed a copy of my clinic note with my assessment and recommendations for this patient. Recommendations for your consideration as you deem necessary: -Continuous follow up with Primary care physician for cardiovascular disease prevention, for age appropriate cancer screening and routine health maintenance and wellness, and infection precautions and age appropriate immunization recommended. Thank you for allowing me to participate in the care of your patient. Nae Ibarra MD I will relay my findings and recommendations to the physician requesting the consult by letter/electronic shared medical records. cc Gabino Owen MD Answers submitted by the patient for this visit: Review of Systems Rheumatology (Submitted on 07/14/2024) Fever : Yes Recent unintentional weight change: No Eye pain: No Eye redness: No Vision Disturbance: Yes Eye Dryness: Yes Nosebleeds: No Sores in your mouth: Yes Trouble Swallowing: No Dry Mouth: Yes Chest pain: No Leg Swelling: No A cough: No Shortness of breath: Yes Pain with breathing: No Heartburn: No Abdominal pain: Yes Diarrhea: Yes Black tarry stools: No Blood in urine: No Pain or burning with urination: No Joint pain or stiffness: Yes Muscle weakness: Yes Muscle aches: Yes Joint swelling: No Morning Stiffness in Joints: No A rash: Yes Do you have sun sensitive rashes?: Yes Skin Color Changes: No Hair Loss: Yes Nail Changes: No Headaches: No Numbness: No Memory Loss: Yes Swollen Glands: No MYCHART AMBULATORY VISIT INTAKE QUESTIONNAIRE Question 07/14/2024 8:26 PM EST - Filed by Patient 02/25/2024 9:29 PM EST - Filed by Patient Has the Patient Had 2 Falls in the Last Year or 1 Fall with Injury or Currently Using an Ambulatory Assistive Device (Walker, Cane, Wheelchair, Crutches, etc.) No No Are you having pain associated with your visit today? Yes Yes What is your Pain Level? 6 Pain Location Back-Middle Description Aching Bloating Dull Radiating Spasm Duration Amount of Time 18 Duration Units Months Frequency Intermittent Intervention/Comfort measure Medication Relaxation Emotional Support/Reassurance Heat Massage Positioning Comments You will be receiving medical information during your visit. Is there anything we need to know to help you understand the information you will be given? No [facility] MYCHART ADDITIONAL DEMO Question 07/14/2024 8:26 PM EST - Filed by Patient Is this visit related to an accident, other than Workers' Compensation? No Is this visit related to Workers' Compensation? No Do you need an warp yarn sorter? No [facility] PROMIS CAT V2.0-PHYSICAL FUNCTION-28 DAYS Question 07/14/2024 8:27 PM EST - Filed by Patient 04/29/2024 7:18 PM EST - Filed by Patient 03/19/2024 1:25 PM EST - Filed by Patient PROMIS Physical Function T-Score (range: 10 - 90) 44 (mild dysfunction) Abnormal 46 (within normal limits) 44 (mild dysfunction) Abnormal PROMIS Physical Function Percentile (range: 0 - 100) 27 34 27 [facility] PROMIS CAT V1.0 - FATIGUE-28 DAYS Question 07/14/2024 8:27 PM EST - Filed by Patient How often did you have to push yourself to get things done because of your fatigue? Often I have trouble starting things because I am tired Quite a bit I feel fatigued Quite a bit How much were you bothered by your fatigue on average? Somewhat PROMIS Fatigue T-Score (range: 10 - 90) 62 (moderate) Abnormal PROMIS Fatigue Percentile (range: 0 - 100) 12 [facility] PROMIS CAT V1.1-PAIN INTERFERENCE-28 DAYS Question 07/14/2024 8:27 PM EST - Filed by Patient 04/29/2024 7:19 PM EST - Filed by Patient 03/19/2024 1:29 PM EST - Filed by Patient PROMIS Pain Interference T-Score (range: 10 - 90) (range: 10 - 90) 59 (mild) Abnormal 56 (mild) Abnormal 56 (mild) Abnormal PROMIS Pain Interference Percentile (range: 0 - 100) 18 27 27 MYC RAPID 3 Question 07/14/2024 8:29 PM EST - Filed by Patient Dress yourself, including typing shoelaces and doing buttons? Without ANY difficulty Get in and out of bed? Without ANY difficulty Lift a full cup or glass to your mouth? Without ANY difficulty Walk outdoors on flat ground? Without ANY difficulty Wash and dry your entire body? Without ANY difficulty Bend down to picker packer clothing from the floor? Without ANY difficulty Turn regular faucets on and off? Without ANY difficulty Get in and out of a car, bus, train, or airplane? Without ANY difficulty Walk tow miles or three kilometers, if you wish? Without ANY difficulty Participate in recreational activities and sports as you would like, if you wish? With SOME difficulty Get a good night's sleep? With MUCH difficulty Deal with feelings of anxiety or being nervous? With SOME difficulty Deal with feelings of depression or feeling blue? Without ANY difficulty RAPID 3 Pain Level 5.5 RAPID 3 HOW DOING OVERALL 5 RAPID 3 Functional Status Score (range: 0 - 10) 0.33 PAIN LEVEL (range: 0 - 10) 5.5 Global Estimate (PTGE) (range: 0 - 10) 5 RAPID 3 CUMULATIVE SCORE (range: 0 - 30) 10.83 RAPID 3 Weighed Score (range: 0 - 10) 3.61 (Moderate severity ) Abnormal Weighed Score Percentage Change Compared to Last (range: -500 - 500) -4.5 MYC RHEUM PHQ-9 Question 07/14/2024 8:31 PM EST - Filed by Patient Over the past two weeks, how often have you been bothered by any of the following problems? Little interest or pleasure in doing things: Several days Feeling down, depressed, or hopeless: Several days PHQ-2 Score (range: 0 - 6) 2 PHQ-2<3, but PHQ-9 > 14 last 12 Mo (range: 0 - 1) 0 MYC PROMIS 10 ADULT SHORT FORM V1.0 GLOBAL HEALTH Question 07/14/2024 8:32 PM EST - Filed by Patient 02/21/2024 1:33 PM EST - Filed by Patient In the past 7 days In general, would you say your health is: Fair Abnormal Fair Abnormal In general, would you say your quality of life is: Good Good In general, how would you rate your physical health? Good Fair Abnormal In general, how would you rate your mental health, including your mood and your ability to think? Fair Abnormal Good Abnormal In general, how would you rate your satisfaction with your social activities and relationships? Fair Abnormal Good In general, please rate how well you carry out your usual social activities and roles. (This includes activities at home, at work and in your community, and responsibilities as a parent, child, spouse, employee, friend, etc.) Fair Abnormal Good To what extent are you able to carry out your everyday physical activities such as walking, climbing stairs, carrying groceries, or moving a chair? Mostly Abnormal Moderately Abnormal In the past 7 days In the past 7 days, how often have you been bothered by emotional problems such as feeling anxious, depressed or irritable? Sometimes Abnormal Sometimes Abnormal In the past 7 days, how would you rate your fatigue on average? Moderate Severe Abnormal In the past 7 days, how would you rate your pain on average? 5 Abnormal 6 Abnormal PROMIS Adult Short Form-Global Health Score (Physical) (range: 16 - 68) 42.3 (Good) 34.9 (Poor) Abnormal PROMIS Adult Short Form-Global Health Score (Mental) (range: 21 - 68) 38.8 (Fair) Abnormal 43.5 (Good) Myc Promis Gh Physical Score Compared To Last (range: -2 - 3) 1 (GREATER > or = 5) 3 (WITHIN +/- 5) Myc Promis Gh Mental Score Compared To Last (range: -2 - 3) 3 (WITHIN +/- 5) 3 (WITHIN +/- 5) MYC PROVIDER UNDERSTANDING CURRENT HEALTH RHEUMATOLOGY Question 07/14/2024 8:33 PM EST - Filed by Patient These questions will help my provider understand my health Agree documented in this encounter [facility] 07-15-2024 Note HNO ID: [id number] Author: NAE IBARRA MD Service: ? Author Type: Physician Type: Progress Notes Filed: 07/15/2024 08:58 Note Text: Face to face follow up for fatigue/low vitamin D. Today's visit 07/15/24:taking lexapro, gabapentin, zofran, mvi. NO extra vitamin D.NO recent oral steroids. stable eye exam. Occasional skin changes and hairloss. Tired. Lots of +C.diff infections, had two fecal transplants and may have more treatments since recent test abnormal. 08/27/24 due for celiac block from pain clinic 04/30/24 saw pain clinic for right sided abd pain 04/16/24 pathTransitional mucosa with chemical gastritis (nonsteroidal anti-inflammatory drugs, bile reflux, etc.) 03/24/24 in ED 03/19/24 seen for anxiety 02/26/24 saw GI for epigastric pain 12/27/23 normal cbc, cmp, esr 12, crp <0.3;negative lipase 22, amylase 44; 11/21/23 s/p cholesterol A. Gallbladder, cholecystectomy: -Gallbladder with no diagnostic abnormality. 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 NO swelling. Chronic current pain in neck upper back. More pain since off nsaids. Mild response with tylenol, misses motrin 00mg.Reports pain 5/10. Has minimal AM stiffness. Feels safe at home. Has enough food, supplies and medications. Overall mildly uncomfortable but happy with rheum care. No falls/fx/trauma/illness/oral sores/rash/hairloss/jaw pain/dysphagia/epistaxis/hemopt ysis since last visit. No adverse effects with meds. No other complaints. Patient denies fever, chills, cp, dyspnea, nausea, vomiting, night sweats, scalp tenderness, visual changes, mike, bowel/bladder changes, weight changes or other complaints. 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 Diagnosed with pancreatitis 14y/o now with chronic pancreatitis per recent CT abd/pelvis. No gallbladder stones. No alcohol, pop. Will look into for pelvic inflammatory disease. With work up soon. 09/2021 miscarriage. Not on control. Ok with future . Still tired. Had fecal transplant x 2 for C.diff x 3. Reports hairloss, memory changes, nail changes, headache, rash, see ROS symptoms below. saw functional medication. Has not seen allergy. Still has hives when exposed to heat/bathtub, outside hot/sun. No recent oral steroids. Walking nightly, hiking exercise. no swelling. Chronic current pain in back pain, sore after activity/mowing lawn sore arms, less knee/shoulder pain. Reports pain 7-810. Has minimal AM stiffness. Has episodes of fatigue, lightheadedness, concerned she may have low sugar. COVID vaccine 03/16/21, 04/06/21. Feels safe at home. Has enough food, supplies and medications.Overall mildly uncomfortable but happy with rheum care. No falls/fx/trauma/illness/oral sores/rash/hairloss/jaw pain/dysphagia/epistaxis/hemopt ysis since last visit. No adverse effects with meds. No other complaints. Patient denies fever, chills, cp, dyspnea, nausea, vomiting, night sweats, scalp tenderness, visual changes, mike, bowel/bladder changes, weight changes or other complaints. Last visit supportive care, consult allergy/immunology for recurrent urticaria and recurrent infection care, avoid triggers, see GI for C.diff care, start prn heat/ice/otc arthritis creams, low impact weightbearing exercise as tolerated, avoid aggravating triggers, December 09, 2021 SUBJECTIVE Ms. Henao is a 21 year old female who presents for fatigue eval. Repeated infections (sinus and urinary tract infection)s once a month C.diff twice last one treated Seeing GI, chronic abdominal bloating and cramping, due for FMT at [facility] ~02/2022 Loose stools per day 3-4 per day No blood in stool weight loss during infection 110lb, now gained back weight Pain in L shoulder, back of L knee, neck from tension Pain comes and goes Negative L shoulder xrays and MRI 2020, treated with PT x 8weeks, some improvement Ultrasound of L knee, negative dvt rashes on UEs/LEs when in sun, itching when in hot bath/hives, hives with C.diff Reports pain 09/29 No falls/fx/trauma/illness/oral sores/rash/hairloss/jaw pain/dysphagia/epistaxis/hemopt ysis. No adverse effects with meds. No other complaints. Patient denies fever, chills, cp, dyspnea, nausea, vomiting, night (more content not included)... [facility] 07-15-2024 Instructions Nae Ibarra MD - 07/15/2024 6:51 AM EST May apply over the counter arthritis creams and or patches (biofreeze, icy hot, asper cream, tiger balm, capsacin, lidocaine, salon pas, voltaren gel, etc.) or over the counter pain patches to painful joints up to four times a day. Avoid contact with eyes. May take Extra Strength acetaminophen 500mg every 4-6hours for joint pain. Do not exceed 3000mg /day. Decrease stress Improve sleep May apply heat/ice 20minutes on and off to areas of pain Avoid aggravating triggers If needed, may take Calcium 1200mg daily with food in DIVIDED doses If labs normal, take Vitamin D 4000 International Units daily with food Recommend goal: exercising 30minutes 3-5 times a week Recommend weight-bearing aerobic exercises such as walking, dancing, low impact aerobics, elliptical machine, stair climbing, gardening flexibility exercises and strength training exercises Recommend avoiding high impact exercises such as jumping, running or jogging or movements where you bend forward and twist the waist, for instance- touching your toes, sit-ups, using row machine snf pain recommendations per primary care provider/pain clinic Nonfasting labs as scheduled Thank you. Latest Ref Rng 12/27/2023 WBC 3.70 - 11.00 k/uL 5.17 RBC 3.90 - 5.20 m/uL 4.48 Hemoglobin 11.5 - 15.5 g/dL 14.1 Hematocrit 36.0 - 46.0 % 41.5 MCV 80.0 - 100.0 fL 92.6 MCH 26.0 - 34.0 pg 31.5 MCHC 30.5 - 36.0 g/dL 34.0 RDW-CV 11.5 - 15.0 % 11.6 Platelet Count 150 - 400 k/uL 179 MPV 9.0 - 12.7 fL 10.5 Neut% % 46.8 Abs Neut (ANC) 1.45 - 7.50 k/uL 2.42 Lymph% % 39.8 Abs Lymph 1.00 - 4.00 k/uL 2.06 Butts% % 8.1 Abs Butts <0.87 k/uL 0.42 Eosin% % 4.3 Abs Eosin <0.46 k/uL 0.22 Baso% % 0.8 Abs Baso <0.11 k/uL 0.04 Immature Gran % % 0.2 IMMATURE GRANS (ABS) <0.10 k/uL <0.03 NRBC /100 WBC 0.0 Absolute nRBC <0.01 k/uL <0.01 DTYPE Auto Protein, Total 6.3 - 8.0 g/dL 7.2 Albumin 3.9 - 4.9 g/dL 4.6 Calcium 8.5 - 10.2 mg/dL 10.2 Bilirubin, Total 0.2 - 1.3 mg/dL 0.5 Alkaline Phosphatase 34 - 123 U/L 53 AST 13 - 35 U/L 14 ALT 7 - 38 U/L 9 Glucose 74 - 99 mg/dL 97 BUN 7 - 21 mg/dL 13 Creatinine 0.58 - 0.96 mg/dL 0.68 Sodium 136 - 144 mmol/L 137 Potassium 3.7 - 5.1 mmol/L 4.3 Chloride 98 - 107 mmol/L 103 CO2 22 - 30 mmol/L 28 Anion Gap 8 - 15 mmol/L 6 (L) eGFR >=60 mL/min/1.73m 124 CRP <0.9 mg/dL <0.3 Amylase 30 - 104 U/L 44 Lipase 16 - 61 U/L 22 WSR 0 - 20 mm/hr 12 03/16/23 borderline cholesterol 202;normal rest of cbc, cmp, crp <0.3, esr 2, vitamin D 32.5, lipase 20, amylase 43;negatvei celic, IGG subclasses;negative irena; 12/08/22 low vitamin D 24.5;normal cbc, cmp, esr 2, crp<0.3, uric acid 3.5, vitamin b12-594;negative rf<10, ccp<15, irena ifa, hepatitis panel, quantiferon tb; documented in this encounter [facility] 07-08-2024 Evaluation note Diagnosis Onset Date Resolution Diarrhea acute July 08, 2024 2:08pm [facility] Work Phone: 1(339) 540-122312-17-2024 Evaluation note* Diagnosis Onset Date Resolution Status Admit Date Diarrhea acute July 08, 2024 2:08pm Dysuria acute July 24, 025 11:33am [facility] Work Phone: 1(392) 432-896212-12-2024 History of Present illness Narrative* Valery Vazquez LPN - 07/03/2024 11:40 AM EST Reason for Appointment: Patient ID: Chioma Alonzo is a 23 y.o. female who [...] ovary 01/24/2023 Dysuria 01/24/2023 Generalized anxiety disorder ([facility]) 05/02/2022 Irritable bowel syndrome with diarrhea 05/02/2022 Lower abdominal pain 05/02/2022 Menstrual disorder 01/24/2023 Miscarriage 01/24/2023 Nausea 05/02/2022 Pain due to genitourinary prosthetic devices, implants and grafts, initial encounter ([facility]) 01/24/2023 Photosensitivity 12/08/2022 Recurrent infections 12/09/2021 Underweight [...] Pain due to intrauterine contraceptive device (IUD) ([facility] ([facility]) Pancreatitis 2014 Urine test negative HISTORY PAST MEDICAL HISTORY SOCIAL HISTORY Past Medical History: Diagnosis Date Anxiety Atypical nevus of back 09/08/2020 Moderate to severely atypical nevus, lower back, excised Clostridium difficile infection 2019 Dr Owen Contraceptive management Counseling and instruction in natural family planning to avoid Dysuria Encounter for counseling regarding contraception Encounter for gynecological examination (general) (routine) without abnormal findings Encounter for insertion of Mirena IUD Hemorrhagic cyst of left ovary Irregular menses IUD check up Miscarriage Pain due to intrauterine contraceptive device (IUD) ([facility] ([facility]) Pancreatitis 2014 Dr Owen/ Hospitalization history: 2019, [facility] 5 days Urine test negative Social History [...] ASPIRATION / LYSIS 01/12/2023 MOLE REMOVAL 2019 Andrew FIELDS WISDOM TOOTH EXTRACTION 2015 REVIEW OF [...] nursing note reviewed. Exam conducted with a correctional counselor/case manager present. Vitals: Estimated body mass index is 19.91 kg/m as calculated from the following: Height as of 02/04/24: 5' 4 . Weight as of this encounter: 116 lb. BP: 108/60 No LMP recorded. ASSESSMENT & PLAN ICD-10-CM 1. Follow-up visit after miscarriage Z51.89 O03.9 Patient presents today to follow up after a recent miscarriage. I have discussed HCG lab levels andmiscarriage with patient in detail. Patient was given [...] of: Jeremiah Burroughs DO documented in this encounterWashington University Medical [id number] Telephone encounter Note* Telephone Encounter - Jorge Oropeza - 07/03/2024 9:20 AM EST BLOCK CELIAC PLEXUS WITH C-ARM needs rescheduled. Please reach out to her to reschedule this. [facility]12-12-2024 Miscellaneous Notes* Telephone Encounter - Jorge Oropeza - 07/03/2024 9:20 AM EST BLOCK CELIAC PLEXUS WITH C-ARM needs rescheduled. Please reach out to her to reschedule this. [facility] History of Present illness Narrative* Elif Rich MD - 07/01/2024 2:05 PM EST Lesions: Location: [place] Duration: a long time [...] Visit: pending biopsy results documented in this encounterWashington University Medical [id number] Telephone encounter Note* Telephone Encounter - Shu Wilkins - 06/23/2024 4:53 PM EST Case message sent to surgery pool to cancel with Dr. Huffman 07/04 per patient request. [facility]12-02-2024 Miscellaneous Notes* Telephone Encounter - Shu Wilkins - 06/23/2024 4:53 PM EST Case message sent to surgery pool to cancel with Dr. Huffman 07/04 per patient request. * Telephone Encounter - Bonny Joyner - 06/23/2024 10:36 AM EST PT called asking to cancel their procedure scheduled on 07/04/2024. Please review and advise. Thank you! [facility] Telephone encounter Note * Telephone Encounter - Bonny Joyner - 06/23/2024 10:36 AM EST PT called asking to cancel their procedure scheduled on 07/04/2024. Please review and advise. Thank you! [facility]10-23-2024 Telephone encounter Note* Telephone Encounter - Shu Wilkins - 05/14/2024 1:38 PM EDT diagnostic celiac plexus blockade CHIOMA ALONZO [id number] [facility] 07/04 -THINNERS -DM Patient was made aware that the ASC will call the day prior to scheduled procedure between the hours of 12 and 4 pm to advise patient of arrival time the day of procedure. Patient was advised that they will require a school bus driver/mechanic on the day of their procedure, and procedure will be cancelled if they arrive without a responsible adult to transport them home from the procedure. Patient advised that all medication management instructions prior to procedure will need addressed by clinical staff. Patient expresses understanding with no further questions or concerns at this time. [facility]-23-2024 Miscellaneous Notes* Telephone Encounter - Shu Wilkins - 05/14/2024 1:38 PM EDT diagnostic celiac plexus blockade CHIOMA ALONZO [id number] [facility] 07/04 -THINNERS -DM Patient was made aware that the ASC will call the day prior to scheduled procedure between the hours of 12 and 4 pm to advise patient of arrival time the day of procedure. Patient was advised that they will require a school bus driver/mechanic on the day of their procedure, and procedure will be cancelled if they arrive without a responsible adult to transport them home from the procedure. Patient advised that all medication management instructions prior to procedure will need addressed by clinical staff. Patient expresses understanding with no further questions or concerns at this time. documented in this [facility] Telephone encounter Note * Telephone Encounter - Shu Wilkins - 05/14/2024 1:36 PM EDT OPENED IN ERROR [facility]-23-2024 Miscellaneous Notes* Telephone Encounter - Shu Wilkins - 05/14/2024 1:36 PM EDT OPENED IN ERROR documented in this encounterSelect [facility]10-09-2024 NoteHNO ID: [id number] Author: PAULA PRETTY MD Service: ? Author Type: Anesthesiologist [...] The following information was personally collected by mePaula MD on April 30, 2024 10:40 AM (electronically signed): Imaging Studies: IMPRESSION: Normal rate of gastric emptying of a solid meal. However patient consumed less than the standard meal, (more content not included)...[facility]10-09-2024 History of Present illness Narrative* Paula Pretty MD - 04/30/2024 10:40 AM EDT Images from the original note were not [...] GI Upset, Hives, Other: See Comments, Rash, Shortnessof Breath, Unknown, Vomiting Current Outpatient Medications Medication Sig dicyclomine (BENTYL) 20 mg tablet Take 1 tablet by mouth two times a day. escitalopram oxalate (LEXAPRO) 10 mg tablet Take 5 mg by mouth once daily. ondansetron (ZOFRAN) 4 mg tablet Take 4 mg by mouth as needed. amitriptyline (ELAVIL) 25 mg tablet take 1 tablet by mouth everyday at bedtime (Patient not taking:Reported on 04/30/2024) pantoprazole DR (PROTONIX) 40 mg [...] following information was personally collected by me, Paula Pretty MD on April 30, 2024 10:40 AM (electronically signed): Imaging Studies: IMPRESSION: Normal rate of gastric emptying of a solid meal. However patient consumed less than the standard meal, which lowers the sensitivity of the study. Warehouse Stocker: FRANCISCO Transcribe Date/Time: Jan 30 2024 2:09P [...] any questions regarding this interpretation, please call [phone]. If you are unable to reach us at the number above, please feel free to contact [facility] at [phone]. Results-Findings * * *Final Report* * * DATE OF EXAM: Jul 05 2023 11:20AM LNC 0311 - CTA ABD/PELV W IVCON / [...] fluid collection. Bones/Soft Tissues: No significant finding. Business Intelligence Consultant (topogram) images: No additional findings. Result History CTA ABD/PEL W IVCON (Order #[id number]) on 07/05/2023 - Order Result History R [...] bentyl prn 3 times/week. Last colonoscopy in [place] and normal. No response to creon Fecal [...] virtual visit/telemedicine) after all above completed fully. I spent a total of 60 minutes on the date of the service which included: *preparing to see the patient *[id number] patient care *completing clinical documentation *obtaining and/or [...] fax, or mail. Patient agrees with above. Paula Pretty MD April 30, 2024 documented in this encounterSelect [facility] Telephone encounter Note * Telephone Encounter - Gisela Ponce RN - 04/24/2024 2:53 PM EDT Pt of Dr. Butler. Pt is scheduled with Dr. Menon for f/u OV 05/07/2024 (made on 12/12/2023). No need for f/u OV with Dr. Menon. Continue f/u with Dr. Butler as well as Dr. Ambriz (gen surg ). Attempted to call pt, no answer. Left detailed voice msg that OV with be cancelled. Instructed to call back with any questions. Gisela Ponce RN [facility] Work Phone: 1(470) 198-964610-03-2024 Miscellaneous Notes* Telephone Encounter - Gisela Ponce RN - 04/24/2024 2:53 PM EDT Pt of Dr. Butler. Pt is scheduled [...] questions. Gisela Ponce RN documented in this encounterSelect [facility]09-[facility]24 Hospital Discharge instructions* Discharge Instructions* Kenny Batista MD - 04/16/2024 10:18 AM [...] moderate abdominal distention, gas, or belching after yourprocedure, if any of these symptoms occur following discharge from the GI Lab or within one week ofhaving your procedure, call the [facility] to be advised whether a visit to your nearest Urgent Care or Emergency Department is indicated. Take this paper with you if you go. - If you develop an allergic reaction to the medications that were given during your procedure suchas difficulty breathing, rash, hives, severe nausea, vomiting [...] inflamed, or looks infected. documented in this [facility] Work Phone: 1(365) 866-943309-04-2024 NoteHNO ID: [id number] Author: PAULA PRETTY MD Service: ? Author Type: Anesthesiologist Type: Progress Notes Filed: 03/26/2024 12:27 Note Text: power outage in building appt rescheduled Paula Pretty [facility]09-04-2024 History of Present illness Narrative* Paula Pretty MD - 03/26/2024 10:55 AM EDT power outage in building appt rescheduled Paula Pretty MD documented in this encounterSelect [facility]08-21-2024 Telephone encounter Note * Telephone Encounter - Yvrose Martinez RN - 03/12/2024 11:46 AM EDT Call placed to patient to relay below message, patient verbalized understanding. Order for c.diff placed Dara Butler Jr., DO [facility]-21-2024 Miscellaneous Notes* Telephone Encounter - Yvrose Martinez RN - 03/12/2024 11:46 AM EDT Call placed to patient to relay below message, patient verbalized understanding. Order for c.diff placed Dara Butler Jr., DO * Telephone Encounter - Monica Pantoja RN - 03/12/2024 9:19 AM EDT Patient calling in requesting an order for C-Diff test. States she had it 1.5 years ago, and thinksits back again Started having watery stools 3-4 [...] like callback with recommendations/order documented in this encounterSelect [facility]08-21-2024 Telephone encounter Note * Telephone Encounter - Monica Pantoja RN - 03/12/2024 9:19 AM EDT Patient calling in requesting an order for C-Diff test. States she had it 1.5 years ago, and thinksits back again Started having watery stools 3-4 [...] advise, patient would like callback with recommendations/order [facility]-14-[facility] History of Present illness Narrative* Whitney Ambriz MD MPH - 03/05/2024 2:15 PM EDT Images from the original note were not included. REFLUX SURGERY NEW PATIENT CONSULTATION HISTORY AND PHYSICAL Date: 03/12/2024 Time: 9:49 AM Name: Chioma Alonzo This is a 23 y.o. female referred for MALS and abdominal pain. She notes symptoms atarted with pancreatitis at age 14 with no known cause and never happened again. Then did fine for years. She notes ongoing diarrhea, nausea, minimal vomiting. Then in 2019 got c diff. 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 Then had another abx, had another [...] in november, got appendicitis a month later. Blake seen multiple docs. Recently had GES. Did a barium swallow. Has done GI panels. Primary symptomis diarrhea but biggest issue is back pain radiating to right side. 2 pancreas specialists told hernot an issue. Told her pancreas totally healthy. [...] bm first thing in am. Bm's do notcorrelate with eating. Last colon[place] in [place] and normal. Sometimes feels like can't take [...] Symptoms: bloating, abdominal pain, diarrhea Symptoms since 2016 History of PPI use GERD - Health [...] her appendix removed for appendicitis 2 weeks subse quent to the cholecystectomy. She has the anatomy [...] and a celiac plexus block with Dr. Paula Pretty. I will follow-up with her after her block. GES at [facility] 01/30/24: RESULT: Solid study demonstrates: - 70% gastric retention at 1 hour (normal range, 37-90%), - 47% retention at 2 hours (normal range, 30-60%), and - 4% retention at 4 hours (normal range, 0-10%). CT Angio abdomen pelvis 07/05/[address] [facility] [address] Menon: IMPRESSION: Likely physiologic extrinsic compression [...] limits. Heptobiliary Scan 11/2022: Diagnostic Colonoscopy 07/2022 [facility]: Impression: Unremarkable colon examination. No ulceration, no [...] each individual question not exceeding 2 indicate regurgitationelimination. PAST MEDICAL HISTORY: Past Medical History: Diagnosis [...] pain. Neck: supple with no nodes IMPRESSION: Chioma Alonzo is a 23 y.o. female with This is a 23 y.o. female referred for MALS and abdominal pain. She notes symptoms atarted with pancreatitis at age 14 with no known cause and never happened again. Then did fine for years. She notes ongoing diarrhea, nausea, minimal vomiting. Then in 2019 got c diff. 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 Then had another abx, had another [...] in november, got appendicitis a month later. Blake seen multiple docs. Recently had GES. Did a barium swallow. Has done GI panels. Primary symptomis diarrhea but biggest issue is back pain radiating to right side. 2 pancreas specialists told hernot an issue. Told her pancreas totally healthy. On the scans told THAI seen. She is scheduled for the injection [...] bm first thing in am. Bm's do notcorrelate with eating. [place] colon[place] in [place] and normal. Sometimes feels like can't take [...] enzymes made her worse. She also has workedwith her microbiome ever since this whole pancreatitis [...] Director of Bariatric & Minimally Invasive Surgery [place] [address] T: [phone] F: [phone] Sita Santos RN Planting Material Remover Nurse Manager Acquisition, Senior Recruitment Consultant Patient Nursing Contact T: [phone] F: [phone] Urmila Baker LPN Coordinator T: [phone] F: [phone] documented in this [facility] Work Phone: 1(851) 775-832708-14-2024 Instructions* Patient Instructions* Whitney Ambriz MD MPH - 03/05/2024 2:15 PM EDT PLAN: I will do an endoscopy I would like get pics from the last couple of CT scans. Get the injection. Let's put all of this together and see where we are. Dr. Whitney Ambriz M.D., MPH Director of Bariatric & Minimally Invasive Surgery [place] [address] T: [phone] F: [phone] Sita Santos, VIRGILIO Planting Material Remover Nurse Manager Acquisition, Senior Recruitment Consultant Patient Nursing Contact T: [phone] F: [phone] Urmila Baker LPN Coordinator T: [phone] F: [phone] documented in this encounterOhio[facility] Work Phone: 1(756) 720-886308-06-2024 History of Present illness Narrative* Bola Braden MD - 02/26/2024 3:30 PM EDT New Patient/Consult REASON FOR VISIT Chioma Alonzo is a 23 year old female [...] with removal of gallbladder. EUS did not revealchanges of chronic pancreatitis. She has a history [...] GI Upset, Hives, Other: See Comments, Rash, Shortnessof Breath, Unknown, Vomiting PAST MEDICAL HISTORY PAST [...] have an unexplained attack of acute pancreatitis atage 13, but no documented attacks since then. Furthermore, both EUS and CT imaging reveal no structural changes of chronic pancreatitis. She has not had an elevated lipase documented in recent years even during episodes of pain. An enzyme trial failed to relieve her pain. Fecal elastase has been innormal range. All considered, I do not believe there is convincing evidence of support a pancreaticorigin for the pain. She is satisfied based [...] which included preparing to see the patient, [id number] patient care, completing clinical documentation, obtaining and/or reviewing separately obtained history, performing a medically appropriate examination, counseling and educating the pat ient/family/caregiver, and independently interpreting results (not separately reported). Bola Braden MD February 26, 2024 * Bola Braden MD - 02/26/2024 3:21 PM EDT error documented in this encounterSelect [facility]08-06-2024 NoteHNO ID: [id number] Author: BOLA BRADEN MD Service: ? Author Type: Physician Type: Progress Notes Filed: 02/26/2024 18:47 Note Text: New Patient/Consult REASON FOR VISIT Chioma Alonzo is a 23 year old female [...] Systems Gastroenterology (Submi (more content not included)... [facility]08-06-2024 NoteHNO ID: [id number] Author: BOLA BRADEN MD Service: ? Author Type: Physician Type: Progress Notes Filed: 02/26/2024 18:47 Note Text: errorFostoria [facility]08-[facility]-2024 Nurse Note* Eva Gray MA - 02/26/2024 3:18 PM EDT What is the reason for your visit today? Consult Who is your referring physician? None Are you having poor oral intake? NO Have you had unintentional weight loss of 15 lbs/7 Kg in the last 3-6 months? NO Bowels: diarrhea or regular Wound: None Temperature: No Drains: No [facility]-06-2024 Nurse Note* Eva Gray MA - 02/26/2024 3:18 PM EDT What is the reason for your visit today? Consult Who is your referring physician? None Are you having poor oral intake? NO Have you had unintentional weight loss of 15 lbs/7 Kg in the last 3-6 months? NO Bowels: diarrhea or regular Wound: None Temperature: No Drains: No documented in this encounterSelect Medical [facility]07-22-2024 History of Present illness Narrative* Wayne Templeton RT(R) - 02/11/2024 9:30 AM EDT Radiology Service Progress Note PATIENT NAME: Chioma Alonzo DATE OF SERVICE: February 11, 2024 TIME: 9:44 AM PATIENT IDENTITY VERIFICATION COMPLETED USING TWO (2) IDENTIFIERS: Name and Date of confirmedby patient verbally. FALL SCREENING: Has the patient had 2 falls in the last year or 1 fall with injury or currently using an Ambulatory Assistive Device (Walker, Cane, Wheelchair, Crutches, etc.)? Inpatient: Screened onfloor PATIENT GENDER DATA: Female. status: : No status: NO. PATIENT RELEVANT IMPLANT DATA REVIEWED: Not Applicable PATIENT PRESENTS WITH AN IMPLANTABLE OR ATTACHED JAVA SOLUTIONS ARCHITECT: No RADIOLOGY DEPARTMENT: General X-ray: Exam(s) Completed: GI/ Procedure(s): Upper GI with barium contrast PERIPHERAL IV DATA: Not applicable SIGNED BY: RT Tabitha(Laura) February 11, 2024 9:44 AM documented in this encounterSelect Medical [facility]07-22-2024 NoteHNO ID: [id number] Author: WAYNE TEMPLETON RT(Laura) Service: ? Author Type: Technologist Type: Progress Notes Filed: 02/11/2024 09:45 Note Text: Radiology Service Progress Note PATIENT NAME: Chioma Alonzo DATE OF SERVICE: February 11, 2024 [...] PATIENT PRESENTS WITH AN IMPLANTABLE OR ATTACHED JAVA SOLUTIONS ARCHITECT: No RADIOLOGY DEPARTMENT: General X-ray: Exam(s) Completed: GI/ Procedure(s): Upper GI with barium contrast PERIPHERAL IV DATA: Not applicable SIGNED BY: MATEO Lu) February 11, 2024 9:44 [facility]07-16-2024 History of Present illness Narrative* Dane Merida MD - 02/05/2024 3:00 PM EDT Images from the original note were not included. Vascular Surgery Consultation, History, Physical Chioma Alonzo is a 23 y.o. year old female patient. History: Patient ID: Chioma Alonzo is a 23 y.o. female. Is [...] her appendix removed for appendicitis 2 weeks subse quent to the cholecystectomy. She has the anatomy [...] and a celiac plexus block with Dr. Paula Pretty. I will follow-up with her after her block. documented in this [facility] Work Phone: 1(237) 297-918807-10-2024 History of Present illness Narrative* Vitor Harp, SHIPPER AND RECEIVING - 01/30/2024 8:30 AM EDT RADIOLOGY SERVICE PROGRESS NOTE SERVICE DATE: 01/30/2024 [...] PATIENT PRESENTS WITH AN IMPLANTABLE OR ATTACHED JAVA SOLUTIONS ARCHITECT: No CREATININE: Creatinine Date Value Ref Range [...] creatinine assay has traceable calibration to isotope dilution- mass spectrometry. Refer to KDIGO guidelines for clinical interpretation. In patients with unstable renal function, e.g. those with acute kidney injury, the eGFRmay not accurately reflect actual GFR. P.O.C.T. RESULTS: [...] 826 PATIENT DISCHARGED TO: Ambulatory patient, left [place] department area. A Diagnostic radioactive procedure has taken place, with no further precautions necessary other than routine body substance precautions. More information regarding radiation safety can be found usingthis link: [email or web address] 20Diagnostic%20Nuclear%20Medicine%[email or web address] SIGNATURE: MARTÍN De La Rosa PATIENT NAME: Chioma Alonzo DATE: January 30, 2024 TIME: 10:38 AM PAGER/CONTACT #: documented in this encounterSelect Medical [facility]ty [facility]07-10-2024 NoteHNO ID: [id number] Author: VITOR HARP CNMT Service: ? Author Type: Pharmacy Aide Type: Progress Notes Filed: 01/30/2024 10:40 Note [...] PATIENT PRESENTS WITH AN IMPLANTABLE OR ATTACHED JAVA SOLUTIONS ARCHITECT: No CREATININE: Creatinine Date Value Ref Range [...] 826 PATIENT DISCHARGED TO: Ambulatory patient, left [place] department area. A Diagnostic radioactive procedure has taken place, with no further precautions necessary other than routine body substance precautions. More information regarding radiation safety can be found using this link: [email or web address] 20Diagnostic%20Nuclear%20Medicine%[email or web address].[email or web address] SIGNATURE: MARTÍN De La Rosa PATIENT NAME: Chioma Alonzo DATE: January 30, 2024 TIME: 10:38 AM [facility]CONTACT [id number] Telephone encounter Note* Telephone Encounter - Vitor Harp CNMT - 01/29/2024 1:15 PM EDT SPOKE WITH PT TO CONFIRM APT TO AND EXPLAIN THE EXAM AND ANY PREP. [facility]-09-2024 Miscellaneous Notes* Telephone Encounter - Vitor Harp CNMT - 01/29/2024 1:15 PM EDT SPOKE WITH PT TO CONFIRM APT TO AND EXPLAIN THE EXAM AND ANY PREP. documented in this encounterSelect Medical [facility]ty [facility]06-20-2024 History of Present illness Narrative* Mckenzie Shepherd, GAS OR WATER METER INSTALLER-SMELTING ENGINEER - 01/10/2024 9:30 AM EDT Images from the original note were not included. Subjective Chioma Alonzo is a 23 y.o. female status post laparoscopic appendectomy on 01/01/2024. She is doing well. The first 3-4 days were painful. She was taking ibuprofen as needed. She denies fever andchills. She denies nausea and vomiting. She is tolerating oral intake and having regular bowel function. She is also wondering about having 2 skin lesions removed. She has a mole under her right armpit. She has had it for forever. It has not changed in size. It is bothersome when she is shaving and hairgets stuck in it. She also has a small skin lesion on her right forehead between her eyerbrows. Objective Vitals: 01/10/24 0924 BP: 114/66 Pulse: 73 Physical Exam Constitutional: Appearance: Normal appearance. Abdominal: General: There is no distension. Palpations: Abdomen is soft. Tenderness: There is no abdominal tenderness. There is no guarding. Comments: Lap sites clean, dry and intact. No signs of infection. Skin: General: Skin is warm and dry. Findings: Lesion present. No bruising or erythema. Comments: Right axilla 2 mm nevus. Right forehead between eyebrows 1 mm flesh colored skin lesion. Neurological: Mental Status: She is alert. Assessment Chioma Alonzo is a 23 y.o.female postop laparoscopic appendectomy. Plan Final pathology discussed and given to patient in office today. No pushing, pulling, lifting over 10 lb for another 4 weeks. Follow-up for skin lesion excisions. Status post laparoscopic appendectomy [Z90.49] AMANDO BARON [facility] [place] This note was created with the assistance of a speech recognition program. While intending to generate a timely document that accurately reflects the content of the visit, no guarantee can be provided that every grammatical or spelling mistake has been or will be identified or corrected. Thank you for your understanding. AMANDO Baron 01/16/24 1213 documented in this encounterAultman Alliance Community HospitalTandemLaunch [id number] Instructions* Patient Instructions* Dara Butler Jr., DO - 12/28/2023 3:15 PM EDT Check gastric emptying study Check Upper GI series Start amitriptyline Start pantoprazole Stop Carafate May use Levbid as needed documented in this encounterSelect Medical Specialty [facility]06-07-2024 History of Present illness Narrative* Dara Butler Jr., - 12/28/2023 3:00 PM EDT No chief complaint on file. HPI: Chioma Alonzo, 23 year old female, followup for [...] about a week but symptoms then recurred. Shehas failed several medications throughout including dicyclomine, Levbid, omeprazole, Carafate, Creon, Zenpep. Extensive imaging with MRI, CT scan, US, HIDA have been unremarkable except for possible suggestion of MALS which she is following up with a specialist. She has history of IBS-D, c.diff twoyears ago requiring fecal transplant. Stool studies have [...] an issue, start amitriptyline. Consider referral to [facility] if symptoms fail to improve. [...] OV notes per Dr. Butler as follows Chioma Alonzo, 22 year old female, for followup. She continues to have chronic generalized abd painwith associated nausea and diarrhea. Pain is around 7 everyday but worsens and evaluated in ER. Workup has been nondiagnostic. Food tends to make symptoms worse. Around 10 yrs ago she had episode of pancreatitis without clear etiology. Since she reports a couple episodes. She feels this is etiologyfor her chronic abd pain. MRI, CT scan, [...] last colonoscopy was 8 months ago in [place]. Start amitriptyline Keep appt with Dr. Menon [...] divisum. 12/01/22 HIDA scan was done at [facility]: Normal study EF 69% US: 10/31/22: [...] with 350 mL of normal saline. 08/02/22 [facility] Gastroenterology Chioma Alonzo is a 21 y.o. female with [...] indicate the absence of fecal white bloodcells Latest Ref Rng 11/15/2023 12/27/2023 WBC 3.70 [...] Lymph 1.00 - 4.00 k/uL 2.43 2.06 Butts% % 8.4 8.1 Abs Butts <0.87 k/uL 0.47 0.42 Eosin% % 3.4 [...] SOLID Dara Butler Jr. documented in this encounterSelect Medical Specialty [facility]06-07-2024 NoteHNO ID: [id number] Author: DARA BUTLER JR, DO Service: ? Author Type: Physician Type: Progress Notes Filed: 12/28/2023 15:30 Note Text: No chief complaint on file. HPI: Chioma Alonzo, 23 year old female, followup for [...] an issue, start amitriptyline. Consider referral to [facility] if symptoms fail to improve. [...] OV notes per Dr. Butler as follows Chioma Alonzo, 22 year old female, for followup. [...] last colonoscopy was 8 months ago in [place]. Start amitriptyline Keep appt with Dr. Menon [...] divisum. 12/01/22 HIDA scan was done at [facility]: Normal study EF 69% US: 10/31/22: (care everywhere) Liver normal Gallbaldder appears normal with no stones or sludge. No gallbladder wall thickening CBD 1.[address] abd/pel w/IV cont: 10/18/22: (scanned): Liver: no enlargement, atrophy, or focal lesion Biliary: no dilation or calcification Pancreas: haziness and p (more content not included)...[facility]-05-[facility] Telephone encounter Note* Telephone Encounter - Analia Estevez RN - 12/26/2023 1:20 PM EDT Please see attached message per pt. Ca I add her on at 3pm on Sunday? I sent a message to scheduling the other day when you said earlier appt but I'll reach out directly. Also, advised pt if she is having acute pancreatitis with severe abdominal pain she may need the ER. Please review and advise. Thank you Analia Estevez RN [facility]-05-2024 Miscellaneous Notes* Telephone Encounter - Analia Estevez RN - 12/26/2023 1:20 PM EDT Please see attached message per pt. Ca I add her on at 3pm on Sunday? I sent a message to scheduling the other day when you said earlier appt but I'll reach out directly. Also, advised pt if she is having acute pancreatitis with severe abdominal pain she may need the ER. Please review and advise. Thank you Analia Estevez RN * Telephone Encounter - Analia Estevez RN - 12/24/2023 10:06 AM EDT Maintain Levbid. Start Carafate. Ok to move up appt to December. Dara Butler Jr., DO Please call pt to set up an office visit in December, may use hold spot if needed. Thank you. Analia Estevez RN * Telephone Encounter - Analia Estevez RN - 12/24/2023 8:[address] Butler, would you prefer to see pt sooner in December? She was started on Levbid recently with no real improvement and requesting sooner office visit? Wondering if she might benefit from seeing functional medicine? Please review and advise. Analia Estevez RN documented in this encounter[facility] Telephone encounter Note * Telephone Encounter - Analia Estevez RN - 12/24/2023 10:06 AM EDT Maintain Levbid. Start Carafate. Ok to move up appt to December. Dara Butler Jr., DO Please call pt to set up an office visit in December, may use hold spot if needed. Thank you. Analia Estevez RN [facility]-03-[facility] Telephone encounter Note* Telephone Encounter - Analia Estevez RN - 12/24/2023 8:[address] Butler, would you prefer to see pt sooner in December? She was started on Levbid recently with no real improvement and requesting sooner office visit? Wondering if she might benefit from seeing functional medicine? Please review and advise. Analia Estevez RN [facility] History of Present illness Narrative* Ariella Mccoy, DENICE.SMELTING ENGINEER - 12/05/2023 2:00 PM EDT Images from the original note were not included. GENERAL SURGERY FOLLOW UP SUBJECTIVE: Chioma Alonzo presents for follow up of her laparoscopic cholecystectomy on 11/21/23. She tolerated the procedure well and was discharged home. Stomach virus started last Sunday, improved by Sunday. Stools are loose but no diarrhea since viralinfection Surgeon: Ryan Pathology: FINAL DIAGNOSIS A. Gallbladder, [...] of a milk jug) for the first 2- 3 weeks after surgery. I have encouraged her to contact the office at any time with any questions or concerns that may arise. Follow up: KAREN Mccoy APRN.CNP documented in this encounterSelect Medical [facility]ty [facility]05-15-2024 NoteHNO ID: [id number] Author: ARIELLA MCCOY APRN.CNP Service: ? Author Type: Nurse Practitioner Type: Progress Notes Filed: 12/05/2023 14:23 Note Text: GENERAL SURGERY FOLLOW UP SUBJECTIVE: Chioma Alonzo presents for follow up of her [...] that may arise. Follow up: KAREN Mccoy APRN.[facility]05-15-2024 Nurse Note* Alivia Gracia MA - 12/05/2023 1:44 PM EDT What is the reason for your visit [...] clean & dry Temperature: No Drains: No [facility] Nurse Note* Alivia Gracia MA - 12/05/2023 1:44 PM EDT What is the reason for your visit [...] Temperature: No Drains: No documented in this encounterSelect Medical [facility]-01-2024 NoteHNO ID: [id number] Author: ?, ?, ? Service: ? Author Type: ? Type: Plan of Care Filed: 11/26/2023 17:37 Note Text: PHARMACY BEDSIDE DELIVERY SERVICE Patient Name: Chioma Alonzo The marked outpatient medications were filled and picked up at [facility] Medication List START taking these [...] prescribed them or your Primary Care Provider. Miguellizz Flores (Design Agent) PAGER: [phone] November 26, 2023 5:37 [facility]05-01-2024 NoteHNO ID: [id number] Author: THELMA MARQUIS APRN.RUBBER GOODS SUPERVISOR Service: Anesthesiology Author Type: Nurse Township Clerk Type: Anesthesia Procedure Notes Filed: 11/21/2023 14:23 Note Text: ANESTHESIOLOGY PROCEDURE NOTE Airway General Information Procedure Start Time/Medication Administration: 11/21/2023 2:14 PM Procedure End Time: 11/21/2023 2:22 PM Patient location during procedure: OR Timeout Performed Pre-procedure: timeout performed Patient identity confirmed: arm brett, care manufacturing team leader and patient Staffing Anesthesiologist: Moshe Krishnamurthy DO RUBBER GOODS SUPERVISOR: Thelma Marquis APRN.RUBBER GOODS SUPERVISOR Performed by: ROMAIN Indications and Patient Condition [...] condition of lips and teeth intact. SIGNATURE: Thelma Marquis APRN.RUBBER GOODS SUPERVISOR PATIENT NAME: Chioma Alonzo DATE: November 21, 2023 TIME: 2:22 PM CSN: [id number] Telephone encounter Note * Telephone Encounter - Madhu Causey PA-C - 11/16/2023 7:38 AM EDT Images from the original note were not [...] surgery. Hope this helps! Augustus Rushing MD [facility]-26-[facility]24 Miscellaneous Notes* Telephone Encounter - Madhu Causey PA-C - 11/16/2023 7:38 AM EDT Images from the original note were not [...] surgery. Hope this helps! Augustus Rushing MD * Telephone Encounter - Valery Lujan RN - 11/15/2023 5:13 PM EDT Plan: - Vitals today: BP of 102/62 [...] a cardiac standpoint. Per his last OV * Telephone Encounter - Maduh Causey PA-C - 11/15/2023 3:08 PM EDT Images from the original note were not included. Greetings Dr. Rushing , Your patient was seen for preanesthesia consult 11/15/2023. Chioma Alonzo is scheduled for LAPAROSCOPIC CHOLECYSTECTOMY with Dr. Seema Davis on 11/21/2023. Do you feel they are medically optimized and ok to proceed as scheduled? Event monitor preliminary reading in [facility] [place] Rec[facility]/Telemetry [ID [id number]] ECHO completed in [facility] [place]. Of note she also has been to the ED 2 times for her palpitations since your visit, with c/o of palpations intermittently throughout the day. she denies associated SOB or dizziness. She reports her symptoms have not changed. Thank you, Madhu Causey PA-C [facility] documented in this encounterSelect Medical [facility]04-25-2024 Telephone encounter Note * Telephone Encounter - Valery Lujan RN - 11/15/2023 5:13 PM EDT Plan: - Vitals today: BP of 102/62 [...] a cardiac standpoint. Per his last OV [facility]-25-[facility] Telephone encounter Note* Telephone Encounter - Madhu Causey PA-C - 11/15/2023 3:08 PM EDT Images from the original note were not included. Greetings Dr. Rushing , Your patient was seen for preanesthesia consult 11/15/2023. Chioma Alonzo is scheduled for LAPAROSCOPIC CHOLECYSTECTOMY with Dr. Seema Davis on 11/21/2023. Do you feel they are medically optimized and ok to proceed as scheduled? Event monitor preliminary reading in [facility] [place] [facility]/Telemetry [ID [id number]] ECHO completed in [facility] [place]. Of note she also has been to the ED 2 times for her palpitations since your visit, with c/o of palpations intermittently throughout the day. she denies associated SOB or dizziness. She reports her symptoms have not changed. Thank you, Madhu Causey PA-C [facility] History and physical note* Madhu Causey PA-C - 11/15/2023 3:00 PM EDT HISTORY AND PHYSICAL EXAMINATION SERVICE DATE: 11/15/2023 SERVICE TIME: 2:43 PM PRIMARY CARE PHYSICIAN: Analia Holliday CNP REASON FOR VISIT: Chioma Alonzo is a 22 year old female who is scheduled for LAPAROSCOPIC CHOLECYSTECTOMY at the request of Dr. Seema Davis for consultation. My final recommendation will be communicated back to therequesting physician by way of shared medical record [...] SOB. Pulse today 75, regular rhythm today [id number]- 0 Ejection Fraction - Result: 63 % [...] is worse with eating. denies dark tarry stools.denies liver disease. Recommended for above surgery. PAST [...] GI Upset, Hives, Other: See Comments, Rash, Shortnessof Breath, Unknown, Vomiting Covid Immunization Dates Overdue - Covid-19 Vaccine ( season) Overdue since 03/23/2023 04/06/2021 Imm Admin: COVID-19 original vaccine, age 12+ yr, monovalent (PFIZER- BIONTECH - PURPLE TOP) 03/16/2021 Imm Admin: COVID-19 original vaccine, age 12+ yr, monovalent (PFIZER- BIONTECH - PURPLE TOP) REVIEW OF SYSTEMS: positive findings are BOLD PAIN ASSESSMENT: Pain Pain Level: 5 Pain Location: Back-Lower Description: Aching Duration Units: Months Frequency: Continuous Intervention/Comfort measure: Relaxation, Heat General: No weight loss, malaise or fevers. Neuro: No history of TIA's, stroke, PLASTIC STRAIGHTENING ROLL OPERATOR tumor, impaired sensorium, hemiplegia, paraplegia or quadraplegia. No neurological symptoms or problems. Respiratory: No history of current cough or dyspnea, or pneumonia in the past 6 weeks. No history of respiratory/pulmonary symptoms or problems. Cardiovascular: Palpitations (SVT) Negative for Recent NC, CAD, CHF, HTN Negative for chest pain, [...] or clotting disorder. Pt is not taking anti- coagulation or platelet medications. No history of hematological [...] 402 QTC Calculation (Bazett) 424 Calculated P [place] 76 Calculated R [place] 37 Calculated T [place] 57 Impression NORMAL SINUS RHYTHM WITH SINUS ARRHYTHMIA POSSIBLE LEFT ATRIAL ENLARGEMENT RSR' PATTERN IN V1 SUGGESTS INCOMPLETE RIGHT BUNDLE BRANCH BLOCK BORDERLINE ECG NO PREVIOUS ECGS AVAILABLE Confirmed by JENNIFER SURESH MD ([id number]) on 10/22/2023 1:00:28 PM Most recent Echo Recent Results (from the past 34397 hour(s)) ECHO Collection Time: 11/07/23 1:59 PM [...] were present. Isolated VEs were frequent (6.9%, 99883), VE Couplets were rare (<1.0%, 21), and no VE Triplets were present. Ventricular Bigeminy and Trigeminy were present. Instructions Given to Patient: Instructions located in the after visit summary. Patient given verbal and written preop instructions and voices comprehension and compliance. SIGNATURE: Madhu Causey PA-C PATIENT NAME: Chioma Alonzo DATE: 11/15/2023 TIME: 2:43 PM [facility] History and physical note* Madhu Causey PA-C - 11/15/2023 3:00 PM EDT HISTORY AND PHYSICAL EXAMINATION SERVICE DATE: 11/15/2023 SERVICE TIME: 2:43 PM PRIMARY CARE PHYSICIAN: Analia Holliday CNP REASON FOR VISIT: Chioma Alonzo is a 22 year old female who is scheduled for LAPAROSCOPIC CHOLECYSTECTOMY at the request of Dr. Seema Davis for consultation. My final recommendation will be communicated back to therequesting physician by way of shared medical record [...] SOB. Pulse today 75, regular rhythm today [id number]- 0 Ejection Fraction - Result: 63 % [...] is worse with eating. denies dark tarry stools.denies liver disease. Recommended for above surgery. PAST [...] Prior to Admission medications as of 11/15/23 2759 Medication Sig Last Dose Taking dicyclomine (BENTYL) [...] GI Upset, Hives, Other: See Comments, Rash, Shortnessof Breath, Unknown, Vomiting Covid Immunization Dates Overdue - Covid-19 Vaccine ( season) Overdue since 03/23/2023 04/06/2021 Imm Admin: COVID-19 original vaccine, age 12+ yr, monovalent (PFIZER- BIONTECH - PURPLE TOP) 03/16/2021 Imm Admin: COVID-19 original vaccine, age 12+ yr, monovalent (Xmybox- BIONTECH - PURPLE TOP) REVIEW OF SYSTEMS: positive findings are BOLD PAIN ASSESSMENT: Pain Pain Level: 5 Pain Location: Back-Lower Description: Aching Duration Units: Months Frequency: Continuous Intervention/Comfort measure: Relaxation, Heat General: No weight loss, malaise or fevers. Neuro: No history of TIA's, stroke, PLASTIC STRAIGHTENING ROLL OPERATOR tumor, impaired sensorium, hemiplegia, paraplegia or quadraplegia. No neurological symptoms or problems. Respiratory: No history of current cough or dyspnea, or pneumonia in the past 6 weeks. No history of respiratory/pulmonary symptoms or problems. Cardiovascular: Palpitations (SVT) Negative for Recent NC, CAD, CHF, HTN Negative for chest pain, [...] or clotting disorder. Pt is not taking anti- coagulation or platelet medications. No history of hematological [...] 402 QTC Calculation (Bazett) 424 Calculated P [place] 76 Calculated R [place] 37 Calculated T [place] 57 Impression NORMAL SINUS RHYTHM WITH SINUS ARRHYTHMIA POSSIBLE LEFT ATRIAL ENLARGEMENT RSR' PATTERN IN V1 SUGGESTS INCOMPLETE RIGHT BUNDLE BRANCH BLOCK BORDERLINE ECG NO PREVIOUS ECGS AVAILABLE Confirmed by JENNIFER SURESH MD ([id number]) on 10/22/2023 1:00:28 PM Most recent Echo Recent Results (from the past 13865 hour(s)) ECHO Collection Time: 11/07/23 1:59 PM [...] were present. Isolated VEs were frequent (6.9%, 47924), VE Couplets were rare (<1.0%, 21), and no VE Triplets were present. Ventricular Bigeminy and Trigeminy were present. Instructions Given to Patient: Instructions located in the after visit summary. Patient given verbal and written preop instructions and voices comprehension and compliance. SIGNATURE: Madhu Causey PA-C PATIENT NAME: Chioma Alonzo DATE: 11/15/2023 TIME: 2:43 PM documented in this encounterSelect Medical [facility]04-22-2024 Instructions* Patient Instructions* Madhu Causey PA-C - 11/12/2023 9:12 AM EDT PATIENT PREOPERATIVE INSTRUCTIONS Seema Davis MD has scheduled you for your procedure at this surgery center: [facility]: [phone] --[address] [address]. Please check in on the1st floor at registration desk 6. - Orders [...] Procedures: - YOU MUST HAVE A RESPONSIBLE ORTHOPEDIC DESIGNER TAKE YOU HOME. A FAMILY LITERACY COORDINATOR OR STAFF DEVELOPMENT COORDINATOR RN CANNOT BE MADE A RESPONSIBLE ORTHOPEDIC DESIGNER. - We recommend that a responsible person stays with you overnight to take care of you. - You cannot stay in a hotel alone after outpatient surgery. You will not be permitted to have yoursurgery, if you do not have someone to take care of you. If you already have an Advance Directive, please fax a copy to [phone] or email to for it to be added to your chart. If you do not have an Advance Directive, you can find the appropriate form and more information at [email or web address]. We recommend that youcomplete the Advance Directive form found on the website and bring it with you the day of your surgery. It can be witnessed and scanned into your chart that day. Madhu Causey PA-C documented in this encounterSelect Medical [facility]ty [facility]04-15-2024 Miscellaneous Notes* Telephone Encounter - Sedrick Rushing MD - 11/05/2023 12:37 PM EDT Spoke with Ms Cindy over the phone. For now, I will wait for the results of the Zio and the Echo andwill reach back out. There is a chance that she may need to see EP, but I would like to see how frequently she is in Bigeminy. documented in this encounterSelect Medical [facility]ty [facility]04-11-2024 Miscellaneous Notes* Telephone Encounter - Chichi Monroy RN - 11/01/2023 3:14 PM EDT Called and spoke to patient per below [...] us, as her surgery is on 11/20. * Telephone Encounter - Vero Romero RN - 11/01/2023 9:55 AM EDT Patient calling See message below Same, ongoing symptoms Staying hydrated Concerned Call CELL [phone] Leave Detailed messages * Telephone Encounter - Juanis Cabello RN - 10/30/2023 11:08 AM EDT The pt is calling. Please review the my chart message from today for an EKG attachment she sent from her ED visit last night. She went to the [place] ED. Are you able to revue her [...] a message. Thank you documented in this encounterSelect Medical [facility]ty [facility]04-02-2024 Miscellaneous Notes* Telephone Encounter - Wilfredo Avila OCCA - 10/23/2023 1:51 PM EDT Received form requesting cardiac evaluation for surgical clearance from [facility] General Surgery with Dr. Seema Davis. Surgery Date: 11-21-2023 Fax to [facility] General Surgery: [phone] Rushing to review. CHATO Ramirez documented in this encounterSelect Medical Specialty [facility]04-02-2024 Miscellaneous Notes* Telephone Encounter - Kym Gray RN - 10/23/2023 1:[address] Sedrick Rushing's office for cardiac clearance at [phone]. Abnormal heart sounds withgallbladder consult on 10/19/23. Received confirmation. Sent to scanning documented in this encounterSelect Medical Specialty [facility]04-01-2024 Nurse Note* Azael Larson LPN - 10/22/2023 3:33 PM EDT EVENT MONITOR DISPOSABLE PATCH INSTRUCTIONS Patient Name: Chioma Alonzo [facility] Number: [id number] Skin prepped and cleansed with alcohol Patch secured to prepped area Monitor Activated Serial #: [id number] Patient Instructed: Prescribed order timeframe Bathing guidelines Usage of event button and diary documentation Return of monitor at the end of prescribed order Call with problems [phone] or [phone]. [phone] Patient expresses a good understanding of instructions Azael Larson LPN documented in this encounterSelect Medical Specialty [facility]04-01-2024 History of Present illness Narrative* Sedrick Rushing MD - 10/22/2023 3:00 PM EDT Images from the original note were not included. [facility] [place] I[facility] Pathak Department of Cardiovascular Medicine SECTION OF REGIONAL CARDIOLOGY OUTPATIENT VISIT DATE October 21, 2023 OUTPATIENT VISIT TYPE NEW CONSULTATION PRIMARY CARE PHYSICIAN: Analia Holliday [address] [place] [address] CHIEF COMPLAINT: Palpitations HISTORY OF PRESENT ILLNESS: [...] GI Upset, Hives, Other: See Comments, Rash, Shortnessof Breath, Unknown, Vomiting CURRENT MEDICATIONS: cbbncl-gqpbrqmr-epaxddz (CREON) 24,000-76,000 -120,000 unit delayed release capsule Take 2 capsulesby mouth two times a day with meals. [...] on File Prior to Visit Medication Sig ktdrkj-kjqctawa-akrmcck (CREON) 24,000-76,000 -120,000 unit delayed release capsule Take 2 capsulesby mouth two times a day with meals. [...] Sedrick Rushing MD Cardiovascular Medicine Staff [facility] [address] [facility] [place] [place] [address] documented in this encounterSelect Medical Specialty [facility]04-01-2024 NoteHNO ID: [id number] Author: SEDRICK RUSHING MD Service: ? Author Type: Physician Type: Progress Notes Filed: 10/22/2023 15:17 Note Text: [facility] [place] [facility] Department of Cardiovascular Medicine SECTION OF REGIONAL CARDIOLOGY OUTPATIENT VISIT DATE October 21, 2023 OUTPATIENT VISIT TYPE NEW CONSULTATION PRIMARY CARE PHYSICIAN: Analia Holliday [address] [place] [address] CHIEF COMPLAINT: Palpitations HISTORY OF PRESENT ILLNESS: [...] Shortness of Breath, Unknown, Vomiting CURRENT MEDICATIONS: rsnfrv-itjxttja-ksazvyp (CREON) 24,000-76,000 -120,000 unit delayed release capsule [...] on File Prior to Visit Medication Sig iaoxgg-cegqhdst-wdwcids (CREON) 24,000-76,000 -120,000 unit delayed release capsule [...] Sedrick Rushing MD Cardiovascular Medicine Staff [facility] [address] [address] [facility] [place] [address] [facility]-29-[facility] NoteHNO ID: [id number] Author: KYM GRAY RN Service: ? Author Type: Registered [...] Yes REFERRAL (RECOMMENDATION): None Electronically Signed By: Kym Gray RN In Department: GENERAL SURGERY [facility]03-29-2024 NoteHNO ID: [id number] Author: KYM GRAY RN Service: ? Author Type: Registered [...] gallbladder EF-69%. This measurement is within normal limitsFostoria City Hospital03-29-2024 NoteHNO ID: [id number] Author: SEEMA DAVIS MD Service: ? Author [...] Take 4 mg by mouth as needed. 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 Lives with her . [...] the date of the service which included ppks-vc-yxay patient care, completing clinical documentation, obtaining and/or reviewing separately obtained history, performing a medically appropriate examination, counseling and educating the patient/family/caregiver, and independently interpreting results (not separately reported). Seema Davis MD .[facility]03-29-2024 NoteEducation (GEMT) CHIOMA ALONZO ([id number]) 2000 F Date Time Provider Department 10/19/23 KYM GRAYYisel Reason for Visit: Education Of Patient/family [904] Primary Visit Diagnosis:Acalculous cholecystitis [K81.9] Order(s):PT ED DIGESTIVE DISEASE [8159240] Order #: [id number]: 1 During your visit today, we recorded [...] Fully Assessed Prescriptions as of 10/19/2023 - efialy-owjflazw-ptowoki (CREON) 24,000-76,000 -120,000 unit delayed release capsule [...] by mouth as needed. Encounter Status:Closed by KYM GRAY on 10/19/23[facility] 09-11-2023 Miscellaneous Notes* Telephone Encounter - Gisela Ponce RN - 09/11/2023 4:25 PM EST Please refer to [facility] dated 09/11/2023. Gisela Ponce RN * Telephone Encounter - Zo Cuevas - 09/11/2023 3:08 PM EST Patient calling to see if she is to follow up with Dr. Menon. He did recommend surgeon consult for cholecystectomy. Patient is asking for referral Please adivse patient documented in this encounterSelect Medical Specialty [facility]02-15-2024 Nurse Note* Rickie Gu RN - 09/06/2023 2:07 PM EST 1345 Pt in Endo RR in satisfactory condition Pt denies c/o pain/discomfort 1345 Discharge instructions given to patient 1400 Dr. Menon at bedside speaking with patient and her mother All questions/concerns addressed 1345 Pt sitting up and drinking fluids without incident 1410 Left Endo in satisfactory condition Rickie Gu RN * Rickie Gu RN - 09/06/2023 10:57 AM EST PATIENT EDUCATION TOPIC: PROCEDURE / SURGERY: Procedure/Surgery: EGD/EUS PATIENT NAME: Chioma Alonzo PATIENT LOCATION: Room/bed info not found [...] None REFERRAL (RECOMMENDATION): None documented in this encounterSelect Medical Specialty [facility]02-15-2024 History and physical note * Isabelle Menon MD - 09/06/2023 11:30 AM EST PROCEDURAL SEDATION HISTORY AND PHYSICAL EXAM SERVICE [...] mouth once daily. 09/05/2023 at 1000 Yes itmspx-rotjsatz-pzjchvd (CREON) 24,000-76,000 -120,000 unit delayed release capsule Take 2 capsulesby mouth two times a day with meals. dicyclomine (BENTYL) 20 mg tablet Take 1 tablet by mouth q 8 HR. Unknown amitriptyline (ELAVIL) 25 mg tablet Take 1 tablet by mouth daily at bedtime. ondansetron (ZOFRAN) 4 mg tablet Take 4 mg by mouth as needed. 09/04/2023 ALLERGIES Allergen Reactions Metronidazole Mental Status Change, Diarrhea, GI Upset, Hives, Other: See Comments, Rash, Shortnessof Breath, Unknown, Vomiting Objective PHYSICAL EXAM: The remainder of the physical exam is noncontributory. AIRWAY: LUNGS: CARDIAC: , Assessment/Plan ASA Class: Active Problems: * No active hospital problems. * Resolved Problems: * No resolved hospital problems. * Medication and Non-Pharmacologic VTE Prophylaxis/Anticoagulants VTE Prophylaxis: VTE prophylaxis appropriate Provisional Diagnosis/Treatment Plan: Pancreatitis, RUQ abdominal pain. SIGNATURE: Isabelle Menon MD PATIENT NAME: Chioma Alonzo DATE: September 06, 2023 TIME: 12:20 PM documented in this encounterSelect Medical Specialty [facility]11-26-2023 Miscellaneous Notes* Telephone Encounter - Isabelle Menon MD - 06/17/2023 10:17 AM EST To summarize the work-up I recommend (in this order): CTA EGD/colonoscopy by Dr. Butler EUS Surgical consult for cholecystectomy. Isabelle Menon MD * Telephone Encounter - Gisela Ponce RN - 06/13/2023 4:25 PM EST Images from the original note were not [...] VIRGILIO Vazquez Khaled, MD You; Gall Adm AsstAnabel II 25 minutes ago (3:59 PM) Gut malrotation was mentioned in one of her images report from [facility]. I will recommend CT-angiography to r/o gut malrotation and MALS. When did she have colonoscopy done? Anabel to schedule EGD+EUS (Linear) in 06/2023 defintely after CTA is completed. We do not need to ortiz and it is important to proceed with work-up in stepwise fashion. Isabelle Menon MD * Telephone Encounter - Gisela Ponce RN - 06/13/2023 11:[address] Menon, colonoscopies are already documented in her OV note. Gisela Ponce RN * Telephone Encounter - Gisela Ponce RN - 06/13/2023 8:14 AM EST Images from the original note were not [...] for laparoscopy and cholecystectomy. Isabelle Menon MD * Telephone Encounter - Isabelle Menon MD - 06/12/2023 11:01 PM EST Gisela: Refer to my note to you from the OV. I just closed it today. Arrange EUS. Isabelle Menon MD * Telephone Encounter - Gisela Ponce RN - 06/11/2023 12:[address] Sinan, please see msg below and advise. Are you ordering an EUS? Thank you, Gisela Ponce RN documented in this encounterSelect [facility]-15-[facility]23 History and physical note * Isabelle Menon MD - 06/06/2023 12:00 PM EST Images from the original note were not included. REASON FOR VISIT: Recurrent acute pancreatitis HPI: Chioma Alonzo is a 22 year old female who presents on the request of Dr. Butler. She was seen by him 05/22/2023 as outlined below for abdominal pain and history of pancreatitis. The patient came to the office with her mother who works as in at [employer]. The problem started when she was age 14 with her first attack of acute pancreatitis. At that time the ultrasound was normal for gallstone. CT scan of the abdomen and pelvis showed acute pancreatitis.She stayed in the hospital for 5 days. She did well for several years after that. 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 The exact etiology was not clear. In the last few years she started complaining of occasional right upper quadrant pain that radiatesto her back on the right. She described [...] an issue, start amitriptyline. Consider referral to [facility] if symptoms fail to improve. [...] divisum. 12/01/22 HIDA scan was done at [facility]: Normal study EF 69% US: 10/31/22: [...] with 350 mL of normal saline. 08/02/22 [facility] Gastroenterology Chioma Alonzo is a 21 y.o. female with [...] Abs Lymph 1.00 - 4.00 k/uL 2.17 Butts% % 8.1 Abs Butts <0.87 k/uL 0.36 Eosin% % 5.6 Abs [...] false negative results. In case of a contactinvestigation, please repeat 8-12 weeks after a known exposure. Transglutaminase IgA Abs <4 U/mL <2 Transglutaminase IgA Abs Interpretation Negative Negative Interpretation (Celiac Screen) No serological evidence of celiac disease, however, if celiac disease is clinically suspected and patient is not on gluten- free diet, histological diagnosis may be considered. HLA [...] <8.00 (L) Rheumatoid Factor <16 IU/mL <10 IRENA Negative Negative WSR 0 - 20 mm/hr [...] Negative Amylase 30 - 104 U/L 43 IRENA Scr Qual Negative Negative Lipase 16 - 61 U/L 20 IgA 70 - 400 mg/dL 174 ALLERGIES Allergen Reactions Metronidazole Mental Status Change, Diarrhea, GI Upset, Hives, Other: See Comments, Rash, Shortnessof Breath, Unknown, Vomiting PAST MEDICAL HISTORY Diagnosis [...] Isabelle Menon MD, FACP documented in this encounterSelect [facility]11-10-2023 Evaluation note* Encounter Date Diagnosis Assessment Notes Treatment Notes Treatment Clinical Notes May, Vitamin D insufficiency (ICD-10 - E55.9) [facility] Other 11-02-2023 Evaluation note* Encounter Date Diagnosis Assessment Notes Treatment Notes Treatment Clinical Notes May, Well adult exam (ICD-10 - Z00.00) Routine lab work ordered. She will follow up with eye doctor due to some floaters that she is having. Follow routinely with dentist and [facility]. Specialty notes reviewed as received. Patient is [...] Lexapro 10 mg daily. Will continue this. [facility] Other 10-31-2023 Instructions* Patient Instructions* Dara Butler Jr., - 05/22/2023 11:39 AM EDT Start amitriptyline Keep appt with Dr. Menon for pancreatic / biliary clinic documented in this encounterSelect Medical [facility]10-31-2023 History of Present illness Narrative* Dara Butler Jr., - 05/22/2023 11:20 AM EDT Patient presents with: Follow Up HPI: Chioma Alonzo, 22 year old female, for followup. [...] last colonoscopy was 8 months ago in [place]. Past GI workup 05/08/23 ER visit notes [...] 8:00 AM EDT Office Visit [facility] [address] [place] [id number] Kyree Noguera MD Abnormal flushing and sweating [...] per patient. She sees a specialist to [facility] doctor Butler for GI- currently awaiting genetic testing for pancreatitis noted on CT scan. Patient presents today after having three episodes of diarrhea and noticing that her stool was pale/white appearing, denies blood or pus. She has had nausea this morning and one episode of vomiti ng. 02/06/23 last OV notes as follows: Chioma Alonzo, 22 year old female, presents in [...] dicyclomine 12/01/22 HIDA scan was done at [facility]: Normal study EF 69% US: 10/31/22: [...] with 350 mL of normal saline. 08/02/22 [facility] Gastroenterology Chioma Alonzo is a 21 y.o. female with [...] PANEL (PCR) (04/02/2023 10:00 AM EDT) Pathologist [facility]ER NOT DETECTED NOT DETECTE [facility] CLOSTRIDIUM [...] Abs Lymph 1.00 - 4.00 k/uL 2.17 Butts% % 8.1 Abs Butts <0.87 k/uL 0.36 Eosin% % 5.6 Abs [...] 3.5 Amylase 30 - 104 U/L 43 IRENA Scr Qual Negative Negative Lipase 16 - 61 U/L 20 PAST MEDICAL HISTORY Diagnosis Date Pancreatitis PAST SURGICAL HISTORY Procedure Laterality Date COLONOSCOPY EGD Current Outpatient Medications on File Prior to Visit Medication Sig chlordiazePOXIDE-clidinium (LIBRAX) 5-2.5 mg per capsule TAKE 1 CAPSULE BY MOUTH THREE TIMES DAILY WITH MEALS ukjtwp-lxstdzuj-aqlisab (ZENPEP) 40,000-126,000- 168,000 unit delayed release capsule [...] an issue, start amitriptyline. Consider referral to [facility] if symptoms fail to improve. [...] studies Dara Butler Jr. documented in this encounterSelect Medical [facility]10-12-2023 Miscellaneous Notes* Telephone Encounter - Analia Estevez [...] Dara Butler Jr., DO documented in this encounterSelect Medical Specialty [facility]09-23-2023 Miscellaneous Notes* Telephone Encounter - Analia Estevez RN - 04/14/2023 9:23 AM EDT Patient has viewed results per [employer]. Analia Estevez RN * Telephone Encounter - Analia Estevez RN - 04/14/2023 9:23 AM EDT ----- Message from Dara Butler Jr., DO sent at 04/13/2023 4:04 PM EDT ----- MRI negative for pancreatitis and anatomic pancreatic abnormalities. Dara Butler Jr., DO documented in this encounterSelect Medical Specialty [facility]09-22-2023 Miscellaneous Notes* Allied Health - Yessi Adkins [...] Body: Pancreas/Biliary SIGNATURE: EJ Hernandez PATIENT NAME: Chioma Alonzo DATE: April 13, 2023 TIME: 3:13 PM documented in this encounterSelect Medical Specialty [facility]09-22-2023 Progress note* Allied Health - Yessi Adkins [...] Body: Pancreas/Biliary SIGNATURE: EJ Hernandez PATIENT NAME: Chioma Alonzo DATE: April 13, 2023 TIME: 3:13 PM [facility]-08-2023 Miscellaneous Notes* Telephone Encounter - Analia Estevez RN - 03/30/2023 10:33 AM EDT Patient has viewed results per [facility]. Analia Estevez RN * Telephone Encounter - Analia Estevez RN - 03/30/2023 10:33 AM EDT ----- Message from Dara Butler Jr., DO sent at 03/30/2023 7:36 AM EDT ----- C.diff negative Dara Butler Jr., DO * Telephone Encounter - Eva Wynne - 03/23/2023 9:01 AM EDT Chioma Alonzo is calling Dara Butler Jr., DO today to let provider know that she did test positive for CDIFF. She had this testing done through [facility]. She is working on getting faxed results to office. Pt states she feels fine, no symptoms but would like to follow up with nurse. Please advise Patient has been identified by name and birthdate. Duration of symptoms: N/A Person calling: self Call patient at: at home [phone] (home) [phone] (cell) Was an appointment scheduled: No Closing statement: Results or non-symptom based questions: Thank you for calling [facility], your call will be returned within the next business day. Eva Wynne documented in this encounterSelect Medical Specialty [facility]09-05-2023 Evaluation note* Encounter Date Diagnosis Assessment Notes Treatment Notes Treatment Clinical Notes Mar, Diarrhea (ICD-10 - R19.7) [facility] Other 09-01-2023 Evaluation note* Encounter Date Diagnosis Assessment Notes Treatment Notes Treatment Clinical Notes Mar, C. difficile diarrhea (ICD-10 - A04.72) [facility] Other 09-01-2023 Miscellaneous Notes* Telephone Encounter - Bryson Arredondo MA - 03/23/2023 7:59 AM EDT Pt was notified via . * Telephone Encounter - Nae Ibarra MD - 03/22/2023 9:36 PM EDT Please Call patient if MyChart note not read to review results/released to My Chart if tests completed at [facility]: Improved/Normal labs and no inflammation. Take over the counter vitamin D 4000 International Units daily with food. Happy to further review and discuss at follow up visit. Continue rest of treatment plan per instructions at last office visit. Thank you. 03/16/23 borderline cholesterol 202;normal rest of cbc, cmp, crp <0.3, esr 2, vitamin D 32.5, lipase 20, amylase 43;negatvei celic, IGG subclasses;negative irena; 12/08/22 low vitamin D 24.5;normal cbc, cmp, esr 2, crp<0.3, uric acid 3.5, vitamin b12-594;negative rf<10, ccp<15, irena ifa, hepatitis panel, quantiferon tb; documented in this encounterSelect Medical Specialty [facility]08-30-2023 Miscellaneous Notes* Telephone Encounter - Analia Estevez RN - 03/21/2023 11:02 AM EDT Results were viewed by patient per [facility]. Analia Estevez RN * Telephone Encounter - Analia Estevez RN - 03/21/2023 11:00 AM EDT ----- Message from Dara Butler Jr., DO sent at 03/21/2023 7:46 AM EDT ----- Labs essentially unremarkable including negative celiac Dara Butler Jr., documented in this encounterSelect Medical Specialty [facility]08-29-2023 Evaluation note* Encounter Date Diagnosis Assessment Notes Treatment Notes Treatment Clinical Notes Feb, Diarrhea (ICD-10 - R19.7) [facility] Other 08-25-2023 Miscellaneous Notes* Telephone Encounter - Analia Estevez RN - 03/16/2023 12:38 PM EDT Per our discussion please review and sign orders for MRI per out discussion based off [employer] message per patient. Analia Estevez RN documented in this encounterSelect Medical Specialty [facility]07-18-2023 Instructions* Patient Instructions* Dara Butler Jr., - 02/06/2023 10:35 AM EDT Check labs Start Levbid Start Zenpep Stop dicyclomine documented in this encounterSelect Medical Specialty [facility]07-18-2023 History of Present illness Narrative* Dara Butler Jr., - 02/06/2023 10:30 AM EDT Consultation requested by Nae Ibarra for an opinion regarding abd pain. My final recommendationswill be communicated back to the requesting physician by way of shared Medical record or letter to requesting physician via US mail. Patient presents with: Abdominal Pain HPI: Chioma Alonzo, 22 year old female, presents in [...] visit: 09/11/22 (care everywhere): Dr. Rehan Driver Chioma Alonzo is a 21 y.o. female with [...] - AMYLASE BLD - LIPASE BLD - IRENA BLOOD - LIPID PANEL BASIC - IGG SUBCLASS 1,2,3,4 - CELIAC SCREEN WITH REFLEX 2. Generalized abdominal pain - ICD9: 789.07, ICD10: R10.84 - HYOSCYAMINE ER 0.375 MG TABLET,EXTENDED RELEASE,12 HR - ZENPEP 40,000 UNIT-126,000 UNIT-168,000 UNIT CAPSULE,DELAYED RELEASE - COMP METABOLIC PANEL - AMYLASE BLD - LIPASE BLD - IRENA BLOOD - LIPID PANEL BASIC - IGG SUBCLASS 1,2,3,4 - CELIAC SCREEN WITH REFLEX 3. Intestinal malabsorption, unspecified type - ICD9: 579.9, ICD10: K90.9 - HYOSCYAMINE ER 0.375 MG TABLET,EXTENDED RELEASE,12 HR - ZENPEP 40,000 UNIT-126,000 UNIT-168,000 UNIT CAPSULE,DELAYED RELEASE - COMP METABOLIC PANEL - AMYLASE BLD - LIPASE BLD - IRENA BLOOD - LIPID PANEL BASIC - IGG SUBCLASS 1,2,3,4 - CELIAC SCREEN WITH REFLEX Dara Butler Jr. documented in this encounterSelect Medical Specialty [facility]06-05-2023 Miscellaneous Notes* Telephone Encounter - Ana Eckert - 12/25/2022 10:22 AM EDT Spoke with patient Scheduled Consult to GI for first avail at [place] in January Did not schedule Med Gen Consult. Still pending review- patient said she will schedule when she sees Dr Luke Eckert December 25, 2022 10:27 AM * Telephone Encounter - Bryson Arredondo MA - 12/25/2022 9:22 AM EDT Pt has been notified via [employer] * Telephone Encounter - Nae Ibarra MD - 12/23/2022 12:53 AM EDT Please call patient. Thank you for the update and your kind words. Sorry to hear about your discomfort. Placed a consult to medical genetics and GI as requested. May schedule at your convenience. Hope you feel better soon! Warm regards, :) documented in this encounterSelect Medical Specialty [facility]05-03-2023 Evaluation note* Encounter Date Diagnosis Assessment Notes [...] K58.0) Recommended Benefiber Follow up 2 months [facility] Other 01-01-2023 History general Narrative - Reported* Type Description Date Medical History Esophageal reflux Medical History anxiety Surgical History wisdom teeth extract Surgical History FMT 07/2022 Hospitalization History pancreatitis [facility] Other 10-06-2022 Evaluation note* Encounter Date Diagnosis Assessment Notes Treatment Notes Treatment Clinical Notes Apr, Irritable bowel syndrome with diarrhea (ICD-10 - K58.0) PATIENT DOES HAVE 3 BOWEL MOVEMENTS A DAY SOMETIMES 1 Apr, RUQ pain (ICD-10 - R10.11) [facility] Other 08-24-2022 History of Present illness Narrative* Mckenzie Kincaid RN - 03/15/2022 3:30 PM EDT Patient verified full name and * Irena Presley MD - 03/15/2022 3:30 PM EDT GI CLINIC PROGRESS NOTE PATIENT NAME: Chioma Henao ATTENDING: Irena Presley MD : 2000 AGE: 21 y.o. GENDER: female LOCATION: GENERAL [facility]STROINTESTINAL SURGERY [facility] [place] DATE OF VISIT: 03/15/2022 REFERRING MD: Jaya [...] diff infection, s/p treatment with fidaxomicin and DELIVERY REP. Symptoms persist, possible post infection IBS vs recurrent c. Diffinfection. Active marijuana user, smokes viper as well. DISPOSITION AND PLAN: 1. Will obtain c diff toxin Ag 2. Stool enteric panel 3. [place] [facility] [place] 4. Imodium prn (after infection is ruled out) 5. Marijuana and viper abstinence counseling provided. Face to face interaction: 25 Time to complete visit: 60 Irena Presley MD [employer] Clerk Division of Gastroenterology, Hepatology and Nutrition Department of Internal Medicine [facility] documented in this encounterC[facility] Instructions* Patient Instructions* Irena Presley MD - 03/15/2022 3:30 PM EDT C diff toxin Ag Enteric stool panel Dicyclomine Imodium prn if infection is ruled out documented in this [facility]03-08-2022 Evaluation note * Encounter Date Diagnosis Assessment Notes Treatment Notes Treatment Clinical Notes Sep, C. difficile diarrhea (ICD-10 - A04.72) START DIFICID DIRECTED REFERRAL TO [facility] FOR RECURRET C.DIFF [facility] Other 11-30-2021 NoteChief Complaint consultation for nausea HPI Staff 20 year old female presents on consultation from Dr. Owen for daily nausea with abdominal cramping and [...] Use:., 06/21/2021 Family History Cancer: Father. Stroke: Mother.[facility] HospitalComment on above:Result Comment: Electronically Signed By: KALEB MACKEY, Ana Lan\Date and Time Signed: 06/21/21 20:44 [id number] Evaluation note* Encounter Date Diagnosis Assessment Notes [...] if symptoms persist or do not improve 14 Apr, 2021 Other Additional time spent conducting pre-visit phone call, screening for symptoms, instructions on social distancing, application and removal of PPE, and cleaning of examination room, equipment and supplies was preformed. Patient education given for testing methodology and results. Patient care instructions given in writting by [facility] document. [facility] Other 05-18-2021 NoteChief Complaint Consultation for Colonoscopy HPI Staff 20 year old female referred by Dr. Owen on consultation for Colonoscopy due to symptoms [...] Use:., 12/07/2020 Family History Cancer: Father. Stroke: Mother.[facility] HospitalComment on above:Result Comment: Electronically Signed By: KALEB MACKEY, Ana Lan\Date and Time Signed: 12/07/20 17:18 [id number] Miscellaneous Notes* Result Encounter Note - Rickie Naqvi DO - 12/02/2020 10:00 AM EDT CTA head and neck are both normal. No abnormalities noted. documented in this encounterParkview Health noteNo Phase Holographic Imaging Other Evaluation note* Diagnosis Diarrhea, unspecified type- Primary documented [facility] this encounter [facility]* Diagnosis Generalized abdominal pain- Primary Abdominal pain, generalized documented in this encounter [facility]* Diagnosis Chronic pancreatitis, unspecified pancreatitis type (HCC)- Primary Generalized abdominal pain Abdominal pain, generalized Intestinal malabsorption, unspecified type documented in this encounter [facility] note* Diagnosis Chronic recurrent pancreatitis (HCC)- Primary Chronic pancreatitis documented in this encounter [facility] note* Diagnosis Chronic pancreatitis, unspecified pancreatitis type (HCC)- Primary Generalized abdominal pain Abdominal pain, generalized Irritable bowel syndrome with diarrhea Irritable bowel syndrome History of Clostridioides difficile colitis documented in this encounter [facility]* Diagnosis Family history of ischemic heart disease and other diseases of the circulatory system History of acute pancreatitis Personal history of other diseases of digestive system Carotid artery aneurysm (HCC) Aneurysm of artery of neck documented in this encounter [facility] noteNo assessment information availableCleveland Clinic [facility] Work Phone: Evaluation note* Diagnosis RUQ pain- Primary Abdominal pain, right upper quadrant History of pancreatitis Personal history of other diseases of digestive system Nausea Nausea alone Diarrhea, unspecified type History of Clostridium difficile infection Personal history of other infectious and parasitic disease documented in this encounter [facility]* Diagnosis Generalized abdominal pain- Primary Abdominal pain, generalized RUQ pain Abdominal pain, right upper quadrant Chronic recurrent pancreatitis (HCC) Chronic pancreatitis Diarrhea, unspecified type documented in this encounter [facility]* Diagnosis Chronic recurrent pancreatitis (HCC) Chronic pancreatitis documented in this encounter [facility]* Diagnosis Palpitations- Primary Other supraventricular tachycardia (HCC) Cholecystitis Cholecystitis, unspecified documented in this encounter [facility] note* Diagnosis Pre-op examination- Primary Preoperative examination, unspecified Palpitations Organic anxiety syndrome Anxiety disorder in conditions classified elsewhere Cholecystitis Cholecystitis, unspecified documented in this encounter [facility]* Diagnosis Onset Date Resolution Status Esophageal reflux acute LOCO (generalized anxiety disorder) acute Irritable bowel syndrome with diarrhea acute Vitamin D insufficiency [facility] Work Phone: Evaluation note* Diagnosis S/P gastrointestinal surgery, follow-up exam- Primary Follow-up examination, following other surgery S/P laparoscopic cholecystectomy Other postprocedural status documented in this encounter [facility]* Diagnosis Generalized abdominal pain- Primary Abdominal pain, generalized History of acute pancreatitis Personal history of other diseases of digestive system documented in this encounter [facility]* Diagnosis Upper abdominal pain- Primary Abdominal pain, other specified site Dyspepsia and disorder of function of stomach Dyspepsia and other specified disorders of function of stomach Dyspepsia Dyspepsia and other specified disorders of function of stomach documented in this encounter [facility]* Diagnosis Upper abdominal pain Abdominal pain, other specified site Dyspepsia and disorder of function of stomach Dyspepsia and other specified disorders of function of stomach Dyspepsia Dyspepsia and other specified disorders of function of stomach documented in this encounter [facility]* Diagnosis Upper abdominal pain Abdominal pain, other specified site Dyspepsia and disorder of function of stomach Dyspepsia and other specified disorders of function of stomach documented in this encounter [facility]* Diagnosis Epigastric pain- Primary Abdominal pain, epigastric documented in this encounter [facility]* Diagnosis Onset Date Resolution Status LOCO (generalized anxiety disorder) [facility] Work Phone: Evaluation note* Diagnosis APPOINTMENT CANCELLED- Primary documented in this encounter [facility]* Diagnosis Chronic recurrent pancreatitis (HCC) Chronic pancreatitis documented in this encounter [facility]* Diagnosis Diarrhea, unspecified type- Primary documented in this encounter [facility]* Diagnosis Right sided abdominal pain- Primary Abdominal pain, unspecified site Neuralgia and neuritis Neuralgia, neuritis, and radiculitis, unspecified Celiac artery compression syndrome (HCC) Celiac artery compression syndrome documented in this encounter [facility]* Diagnosis Right sided abdominal pain- Primary Abdominal pain, unspecified site Celiac artery compression syndrome (HCC) Celiac artery compression syndrome Neuralgia and neuritis Neuralgia, neuritis, and radiculitis, unspecified Right sided abdominal pain Abdominal pain, unspecified site Celiac artery compression syndrome (HCC) Celiac artery compression syndrome Neuralgia and neuritis Neuralgia, neuritis, and radiculitis, unspecified documented in this encounter [facility] note* Diagnosis Neoplasm of unspecified behavior of bone, soft tissue, and skin- Primary [facility] encounter [facility]* Diagnosis Median arcuate ligament syndrome (CMS-HCC)- Primary Celiac artery compression syndrome documented in this encounter [facility] Work Phone: Evaluation note* Diagnosis Epigastric pain- Primary Abdominal pain, epigastric Median arcuate ligament syndrome (CMS-HCC) Celiac artery compression syndrome Difficulty breathing Other dyspnea and respiratory abnormality documented in this encounter [facility] Work Phone: Evaluation note* Diagnosis Follow-up visit after miscarriage [facility]* Diagnosis Median arcuate ligament syndrome (CMS-HCC) Celiac artery compression syndrome documented in this encounter [facility] Work Phone: Evaluation note* Diagnosis Chronic fatigue- Primary Other malaise and fatigue Vitamin B12 deficiency Other B-complex deficiencies Vitamin D deficiency Unspecified vitamin D deficiency Generalized abdominal pain Abdominal pain, generalized Urticaria Urticaria, unspecified Photosensitivity Acute dermatitis due to solar radiation Chronic bilateral low back pain without sciatica Cervicalgia Upper back pain Long-term use of high-risk medication Right sided abdominal pain Abdominal pain, unspecified site Celiac artery compression syndrome (HCC) Celiac artery compression syndrome Neuralgia and neuritis Neuralgia, neuritis, and radiculitis, unspecified documented in this encounter [facility]* Diagnosis Generalized abdominal pain Abdominal pain, generalized Change in bowel habits Other symptoms involving digestive system documented in this encounter [facility]* Diagnosis Status post laparoscopic appendectomy- Primary Other postprocedural status documented in this encounter [facility] KlickThru SystemHistory general Narrative - Reported* Type Description Date Medical History Esophageal reflux Medical History anxiety Surgical History wisdom teeth extract Hospitalization History pancreatitis [facility] Other History general Narrative - Reported* Type Description Date Medical History Esophageal reflux Medical History ANXIETY Medical History PANCREATITIS Medical History C DIFF Medical History COLON INFLAMMATION Medical History 2 FECAL TRANSPLANTS Medical History ENDOMETRIOSIS Surgical History wisdom teeth extract Surgical History FMT 07/2022 Surgical History LAPROSOCOPY FOR ENDOMETRIOSIS Hospitalization History pancreatitis [facility] Other InstructionsNot on filedocumented in this encounter [email or web address] SystemInstructionsNot on filedocumented in this encounter [facility] SystemReason for referral (narrative)* Diagnostic Procedure Only (Routine) - Closed Specialty Diagnoses / Procedures Referred By Chance warren Referred To Contact CT IMAGING Diagnoses Carotid artery aneurysm (HCC) History of acute pancreatitis Procedures CTA NECK W IVCON CTA NECK, W/WO C, W/3D Rickie Naqvi DO [address] [place] [address] [place] [id number] Referral ID Status Reason Start Date Expiration Date V isits Requested Visits Authorized [id number] Closed Auto-Generate d Referral 11/18/2020 05/17/2021 1 1 * Diagnostic Procedure Only (Routine) - Closed Specialty Diagnoses / Procedures Referred By Contac t Referred To Contact CT IMAGING Diagnoses Family history of ischemic heart disease and other diseases of the circulatory system History of acute pancreatitis Procedures CTA HEAD WO/W IVCON CTA HEAD WWO C, W/3D Rickie Naqvi DO [address] [place] [address] [place] [id number] Referral ID Status Reason Start Date Expiration Date V isits Requested Visits Authorized [id number] Closed Auto-Generate d Referral 11/18/2020 12/18/2021 1 1 [facility] for referral (narrative)* Outpatient Procedure (Routine) - Closed Specialty Diagnoses / Procedures Referred By Contac t Referred To Contact [facility] Diagnoses Chronic recurrent pancreatitis (HCC) Procedures EGD - THERAPEUTIC, EUS, OR TUBE INTERVENTIONS EDG US EXAM SURGICAL ALTER STOM DUODENUM/[place] [address] [place] [address] [facility] [address] [address] Referral ID Status Reason Start Date Expiration Date V isits Requested Visits Authorized [id number] Closed Auto-Generate d Referral 07/13/2023 07/13/2024 1 1 [facility] for referral (narrative)* Outpatient Procedure (Routine) - Authorized Specialty Diagnoses / Procedures Referred By Contac t Referred To Contact [facility] Diagnoses Other supraventricular tachycardia (HCC) Palpitations Procedures ECHO ECHO TTHRC R-T 2D W/WOM-MODE COMPL SPEC&[place] [address] [facility] [place] [address] [facility] [address] [address] Referral ID Status Reason Start Date Expiration Date Visits Requested Visits Authorized [id number] Authorized Auto-Generat ed Referral 10/22/2023 10/21/2024 1 1 [facility] for referral (narrative)* Diagnostic Procedure Only (Routine) - Authorized Specialty Diagnoses / Procedures Referred By Contac t Referred To Contact MOLECULAR & FUNCTIONAL IMAGING Diagnoses Upper abdominal pain Dyspepsia and disorder of function of stomach Dyspepsia Procedures NM GASTRIC EMPTYING SOLID GASTRIC EMPTYING STUDY Dara Butler Jr., DO [address] [place] [address] Molecular [facility] Functional Imaging [address] [place] [address] Referral ID Status Reason Start Date Expiration Date Visits Requested Visits Authorized [id number] Authorized Auto-Generat ed Referral 12/28/2023 01/26/2025 1 1 * Diagnostic Procedure Only (Routine) - Pending Review Specialty Diagnoses / Procedures Referred By Contac t Referred To Contact XR IMAGING Diagnoses Upper abdominal pain Dyspepsia and disorder of function of stomach Procedures XR UPPER GI SINGLE CONTRAST RADIOLOGIC EXAM UPR GI TRC SINGLE CONTRAST STUDY Dara Butler Jr., DO [address] [place] [address] [place] [id number] Referral ID Status Reason Start Date Expiration Date Visits Requested Visits Authorized [id number] Pending Review Auto-Generat ed Referral 12/28/2023 01/26/2025 1 1 [facility] for referral (narrative)* Diagnostic Procedure Only (Routine) - Closed Specialty Diagnoses / Procedures Referred By Contac t Referred To Contact MOLECULAR & FUNCTIONAL IMAGING Diagnoses Upper abdominal pain Dyspepsia and disorder of function of stomach Dyspepsia Procedures NM GASTRIC EMPTYING SOLID GASTRIC EMPTYING STUDY Dara Butler Jr., DO [address] [place] [address] Molecular [facility] [address] [place] [address] Referral ID Status Reason Start Date Expiration Date V isits Requested Visits Authorized [id number] Closed Auto-Generate d Referral 12/28/2023 01/26/2025 1 1 [facility] for referral (narrative)* Diagnostic Procedure Only (Routine) - Closed Specialty Diagnoses / Procedures Referred By Contac t Referred To Contact XR IMAGING Diagnoses Upper abdominal pain Dyspepsia and disorder of function of stomach Procedures XR UPPER GI SINGLE CONTRAST RADIOLOGIC EXAM UPR GI TRC SINGLE CONTRAST STUDY Dara Butler Jr., DO [address] [place] [address] [place] [id number] Referral ID Status Reason Start Date Expiration Date V isits Requested Visits Authorized [id number] Closed Auto-Generate d Referral 02/11/2024 07/22/2024 1 1 [facility] for referral (narrative)* Consultation (Routine) - Authorized Specialty Diagnoses / Procedures Referred By Contac t Referred To Contact Pain Medicine Diagnoses Median arcuate ligament syndrome (CMS-HCC) [place] [email or web address] [place] [address] [place] [address] Paual Pretty MD [address] [place] [address] [place] [address] Referral ID Status Reason Start Date Expiration Date Visits Requested Visits Authorized [id number] Authorized Specialty Services Required 02/05/2024 02/04/2025 1 1 * Consultation (Routine) - Authorized Specialty Diagnoses / Procedures Referred By Contac t Referred To Contact General Surgery Diagnoses Median arcuate ligament syndrome (CMS-HCC) [place] [address] [place] [address] [place] [address] Whitney Ambriz MD MPH [address] [facility] [address] [place] [address] Referral ID Status Reason Start Date Expiration Date Visits Requested Visits Authorized [id number] Authorized Specialty Services Required 02/05/2024 02/04/2025 1 1 [facility] Work Phone: Reason for visit Narrative* Diagnostic Procedure Only (Routine) - Closed Specialty Diagnoses / Procedures Referred By Contac t Referred To Contact CT IMAGING Diagnoses Carotid artery aneurysm (HCC) History of acute pancreatitis Procedures CTA NECK W IVCON CTA NECK, W/WO C, W/3D Rickie Naqvi DO [address] [place] [address] [address] [facility] [place] [address] Referral ID Status Reason Start Date Expiration Date V isits Requested Visits Authorized [id number] Closed Auto-Generate d Referral 11/18/2020 05/17/2021 1 1 [facility] for visit Narrative* Outpatient Procedure (Routine) - Closed Specialty Diagnoses / Procedures Referred By Contac t Referred To Contact [facility] Diagnoses Chronic recurrent pancreatitis (HCC) Procedures EGD - THERAPEUTIC, EUS, OR TUBE INTERVENTIONS EDG US EXAM SURGICAL ALTER STOM DUODENUM/[place] [address] [place] [address] [facility] [address] [place] [address] Referral ID Status Reason Start Date Expiration Date V isits Requested Visits Authorized [id number] Closed Auto-Generate d Referral 07/13/2023 07/13/2024 1 1 [facility] for visit Narrative* Diagnostic Procedure Only (Routine) - Closed Specialty Diagnoses / Procedures Referred By Contac t Referred To Contact MOLECULAR & FUNCTIONAL IMAGING Diagnoses Upper abdominal pain Dyspepsia and disorder of function of stomach Dyspepsia Procedures NM GASTRIC EMPTYING SOLID GASTRIC EMPTYING STUDY Dara Butler Jr., DO [address] [place] [address] Molecular & Functional Imaging [address] [place] [address] Referral ID Status Reason Start Date Expiration Date V isits Requested Visits Authorized [id number] Closed Auto-Generate d Referral 12/28/2023 01/26/2025 1 1 [facility] for visit Narrative* Diagnostic Procedure Only (Routine) - Closed Specialty Diagnoses / Procedures Referred By Contac t Referred To Contact XR IMAGING Diagnoses Upper abdominal pain Dyspepsia and disorder of function of stomach Procedures XR UPPER GI SINGLE CONTRAST RADIOLOGIC EXAM UPR GI TRC SINGLE CONTRAST STUDY Dara Butler Jr., DO [address] [place] [address] [place] [id number] Referral ID Status Reason Start Date Expiration Date V isits Requested Visits Authorized [id number] Closed Auto-Generate d Referral 02/11/2024 07/22/2024 1 1 [facility] for visit Narrative* Consultation (Routine) - Authorized Specialty Diagnoses / Procedures Referred By Contac t Referred To Contact General Surgery Diagnoses Median arcuate ligament syndrome ([place] [address] [address] Whitney Ambriz MD MPH [address] [facility] [address] [place] [address] Referral ID Status Reason Start Date Expiration Date Visits Requested Visits Authorized [id number] Authorized Specialty Services Required 02/05/2024 02/04/2025 1 1 [facility] Work Phone: Reason for visit Narrative* Outpatient Procedure (Routine) - Closed Specialty Diagnoses / Procedures Referred By Contac t Referred To Contact [facility] Diagnoses Generalized abdominal pain Change in bowel habits Procedures COLONOSCOPY DIAGNOSTIC COLONOSCOPY FLX DX W/COLLJ SPEC WHEN PFRMD Dara Butler Jr., DO [address] [place] [phone] Phone: tel: fax: [facility] [place] [address] Referral ID Status Reason Start Date Expiration Date V isits Requested Visits Authorized [id number] Closed Auto-Generate d Referral 08/21/2024 08/21/2025 1 1 [facility] Summary Purpose Family History Relationship Condition Age [...] arcuate ligament syndrome (CMS-HCC) Procedures Esophagogastroduodenoscopy (EGD) [place] ESOPHAGOGASTRODUODENOSCOPY TRANSORAL DIAGNOSTIC [place] EGD TRANSORAL BIOPSY SINGLE/MULTIPLE Whitney Ambriz MD MPH [address] [place] [address] Referral ID Status Reason Start Date Expiration Date V isits Requested Visits Authorized [id number] Authorized 03/06/2024 03/06/2025 1 1 Specialty Diagnoses / Procedures Referred By Contac t Referred To Contact CT IMAGING Diagnoses Generalized abdominal pain RUQ pain Chronic recurrent pancreatitis (HCC) Diarrhea, unspecified type Procedures CTA ABD/PEL W IVCON CT ANGIO ABD&PLVIS CNTRST MTRL W/[place] [address] [place] [address] [place] [address] Referral ID Status Reason Start Date Expiration Date Visits Requested Visits Authorized [id number] Authorized Auto-Generat ed Referral 3 07/12/2024 1 1 Specialty Diagnoses / Procedures Referred By Contac t Referred To Contact MR IMAGING Diagnoses Chronic recurrent pancreatitis (HCC) Procedures MRI ABDOMEN WO/W IVCON MRI ABDOMEN W/O & W/CONTRAST MATERIAL Dara Butler Jr., DO [address] [place] [address] [place] [address] Referral ID Status Reason Start Date Expiration Date Visits Requested Visits Authorized [id number] Authorized Auto-Generat ed Referral 03/16/2023 04/14/2024 1 1 Specialty Diagnoses / Procedures Referred By Contac t Referred To Contact Gastroenterology Diagnoses Generalized abdominal pain Procedures CONSULT TO GASTROENTEROLOGY OFFICE/OUTPATIENT [facility] 60-74 MINUTES Nae Ibarra MD [address] [place] [address] Referral ID Status Reason Start Date Expiration Date Visits Requested Visits Authorized [id number] Authorized PCP Requested Referral 12/23/2022 12/23/2023 1 1 Specialty Diagnoses / Procedures Referred By Contac t Referred To Contact Diagnoses Generalized abdominal pain Procedures CONSULT TO MEDICAL GENETICS - GENERAL OFFICE/OUTPATIENT [facility] 60-74 MINUTES MEDICAL GENETICS COUNSELING EACH 30 MINUTES Nae Ibarra MD [address] [place] [address] [address] Referral ID Status Reason Start Date Expiration Date Visits Requested Visits Authorized [id number] Pending Review PCP Requested Referral Auto-Generate d Referral 12/23/2022 12/23/2023 1 1 Reason Please schedule cons ult to evaluate and treat at [facility] (in [place]) for recurrent c.diff infection. (for possible fecal [...] for Visit LOCO (generalized anx iety disorder) Chief Complaint Admit Date Amb Documentation June 27, 2024 9 :10am stomach issues, medical concerns Decembe r 2023 2:08pm Amb Documentation July 14, 2024 3:32pm UA, burning, back pain July 24, 2024 11:33am Reason for Visit Admit Date Diarrhea July 08, 2024 2:08pm Reason for Visit Admit Date Diarrhea July 08, 2024 2:08pm Dysuria July 24, 2024 11 :33am Chief Complaint Admit Date UA, urgency, burning, lower back pain Ap ril 2024 11:20am Additional Source Comments INFORMATION SOURCE (unrecogn ized section and content) DATE CREATED AUTHOR 09/15/2021 [facility] DATE CREATED AUTHOR AUTHOR'S ORGANIZ ATION 02/16/2022 [facility] DATE CREATED AUTHOR AUTHOR'S ORGANIZ ATION 03/18/2022 [facility] DATE CREATED AUTHOR AUTHOR'S ORGANIZ ATION 12/04/2022 [facility] DATE CREATED AUTHOR AUTHOR'S ORGANIZ ATION 04/26/2023 [facility] DATE CREATED AUTHOR AUTHOR'S ORGANIZ ATION 02/13/2024 [facility] DATE CREATED AUTHOR AUTHOR'S ORGANIZ ATION 07/04/2024 [facility] DATE CREATED AUTHOR AUTHOR'S ORGANIZ ATION 07/17/2024 [facility] DATE CREATED AUTHOR AUTHOR'S ORGANIZ ATION 08/01/2024 [facility] DATE CREATED AUTHOR AUTHOR'S ORGANIZ ATION 08/06/2024 [facility] DATE CREATED AUTHOR AUTHOR'S ORGANIZ ATION 09/07/2024 [facility] REASON FOR VISIT (unrecogniz ed section and content) Reason Comments New Patient Specialty Diagnoses / Procedures Referred By Contac t Referred To Contact Gastroenterology Diagnoses C. difficile diarrhea Jaya Parikh MD [address] [place] [address] Referral ID Status Reason Start Date Expiration Date V isits Requested Visits Authorized [id number] Pending Review 10/07/2021 11/01/2022 1 1 Reason Comments Abdominal Pain Specialty Diagnoses / Procedures Referred By Contac t Referred To Contact Gastroenterology Diagnoses Generalized abdominal pain Procedures CONSULT TO GASTROENTEROLOGY OFFICE/OUTPATIENT [facility] 60-74 MINUTES Nae Ibarra MD [address] [place] [address] Referral ID Status Reason Start Date Expiration Date V isits Requested Visits Authorized [id number] Closed PCP Requested Referral 12/23/2022 12/23/2023 1 [...] tachycardia (HCC) Procedures CONSULT TO CARDIOLOGY OFFICE/OUTPATIENT [facility] 60 [place] [address] [place] [address] Referral ID Status Reason Start Date Expiration Date V isits Requested Visits Authorized [id number] Closed PCP Requested Referral 10/19/2023 10/18/2024 1 [...] & W/CONTRAST MATERIAL Dara Butler Jr., DO [address] [place] [address] [place] [address] Referral ID Status Reason Start Date Expiration Date V isits Requested Visits Authorized [id number] Closed Auto-Generate d Referral 03/16/2023 04/14/2024 1 [...] arcuate ligament syndrome (CMS-HCC) Procedures Esophagogastroduodenoscopy (EGD) [place] ESOPHAGOGASTRODUODENOSCOPY TRANSORAL DIAGNOSTIC [place] EGD TRANSORAL BIOPSY SINGLE/MULTIPLE Whitney Ambriz [place] M[facility] [address] [place] [address] Referral ID Status Reason Start Date Expiration Date V isits Requested Visits Authorized [id number] Authorized 03/06/2024 03/06/2025 1 1 Reason Comments Follow Up Follow-up on everyth ing. Reason Comments Post-op Post op laparoscopic appendectomy performed 01/01/24 at [facility] Source Comments (unrecognize d section and content) In the event this informatio n is protected by the Federal Confidentiality of Alcohol and Drug Abuse Patient Records regulations: The Federal rules restrict any use of the information to criminally investigate or prosecute any alcohol or drug abuse patient.[facility] the event this information is protected by the Federal Confidentiality of Alcohol and Drug Abuse Patient Records regulations: The Federal rules restrict any use of the information to criminally investigate or prosecute any alcohol or drug abuse patient.[facility] the event this information is protected by the Federal Confidentiality of Alcohol and Drug Abuse Patient Records regulations: The Federal rules restrict any use of the information to criminally investigate or prosecute any alcohol or drug abuse patient.[facility] the event this information is protected by the Federal Confidentiality of Alcohol and Drug Abuse Patient Records regulations: The Federal rules restrict any use of the information to criminally investigate or prosecute any alcohol or drug abuse patient.[facility] the event this information is protected by the Federal Confidentiality of Alcohol and Drug Abuse Patient Records regulations: The Federal rules restrict any use of the information to criminally investigate or prosecute any alcohol or drug abuse patient.[facility] the event this information is protected by the Federal Confidentiality of Alcohol and Drug Abuse Patient Records regulations: The Federal rules restrict any use of the information to criminally investigate or prosecute any alcohol or drug abuse patient.[facility] the event this information is protected by the Federal Confidentiality of Alcohol and Drug Abuse Patient Records regulations: The Federal rules restrict any use of the information to criminally investigate or prosecute any alcohol or drug abuse patient.[facility] the event this information is protected by the Federal Confidentiality of Alcohol and Drug Abuse Patient Records regulations: The Federal rules restrict any use of the information to criminally investigate or prosecute any alcohol or drug abuse patient.[facility] the event this information is protected by the Federal Confidentiality of Alcohol and Drug Abuse Patient Records regulations: The Federal rules restrict any use of the information to criminally investigate or prosecute any alcohol or drug abuse patient.[facility] the event this information is protected by the Federal Confidentiality of Alcohol and Drug Abuse Patient Records regulations: The Federal rules restrict any use of the information to criminally investigate or prosecute any alcohol or drug abuse patient.[facility] the event this information is protected by the Federal Confidentiality of Alcohol and Drug Abuse Patient Records regulations: The Federal rules restrict any use of the information to criminally investigate or prosecute any alcohol or drug abuse patient.[facility] the event this information is protected by the Federal Confidentiality of Alcohol and Drug Abuse Patient Records regulations: The Federal rules restrict any use of the information to criminally investigate or prosecute any alcohol or drug abuse patient.[facility] the event this information is protected by the Federal Confidentiality of Alcohol and Drug Abuse Patient Records regulations: The Federal rules restrict any use of the information to criminally investigate or prosecute any alcohol or drug abuse patient.[facility] the event this information is protected by the Federal Confidentiality of Alcohol and Drug Abuse Patient Records regulations: The Federal rules restrict any use of the information to criminally investigate or prosecute any alcohol or drug abuse patient.[facility] the event this information is protected by the Federal Confidentiality of Alcohol and Drug Abuse Patient Records regulations: The Federal rules restrict any use of the information to criminally investigate or prosecute any alcohol or drug abuse patient.[facility] the event this information is protected by the Federal Confidentiality of Alcohol and Drug Abuse Patient Records regulations: The Federal rules restrict any use of the information to criminally investigate or prosecute any alcohol or drug abuse patient.[facility] the event this information is protected by the Federal Confidentiality of Alcohol and Drug Abuse Patient Records regulations: The Federal rules restrict any use of the information to criminally investigate or prosecute any alcohol or drug abuse patient.[facility] the event this information is protected by the Federal Confidentiality of Alcohol and Drug Abuse Patient Records regulations: The Federal rules restrict any use of the information to criminally investigate or prosecute any alcohol or drug abuse patient.[facility] the event this information is protected by the Federal Confidentiality of Alcohol and Drug Abuse Patient Records regulations: The Federal rules restrict any use of the information to criminally investigate or prosecute any alcohol or drug abuse patient.[facility] the event this information is protected by the Federal Confidentiality of Alcohol and Drug Abuse Patient Records regulations: The Federal rules restrict any use of the information to criminally investigate or prosecute any alcohol or drug abuse patient.[facility] the event this information is protected by the Federal Confidentiality of Alcohol and Drug Abuse Patient Records regulations: The Federal rules restrict any use of the information to criminally investigate or prosecute any alcohol or drug abuse patient.[facility] the event this information is protected by the Federal Confidentiality of Alcohol and Drug Abuse Patient Records regulations: The Federal rules restrict any use of the information to criminally investigate or prosecute any alcohol or drug abuse patient.[facility] the event this information is protected by the Federal Confidentiality of Alcohol and Drug Abuse Patient Records regulations: The Federal rules restrict any use of the information to criminally investigate or prosecute any alcohol or drug abuse patient.[facility] the event this information is protected by the Federal Confidentiality of Alcohol and Drug Abuse Patient Records regulations: The Federal rules restrict any use of the information to criminally investigate or prosecute any alcohol or drug abuse patient.[facility] the event this information is protected by the Federal Confidentiality of Alcohol and Drug Abuse Patient Records regulations: The Federal rules restrict any use of the information to criminally investigate or prosecute any alcohol or drug abuse patient.[facility] the event this information is protected by the Federal Confidentiality of Alcohol and Drug Abuse Patient Records regulations: The Federal rules restrict any use of the information to criminally investigate or prosecute any alcohol or drug abuse patient.[facility] the event this information is protected by the Federal Confidentiality of Alcohol and Drug Abuse Patient Records regulations: The Federal rules restrict any use of the information to criminally investigate or prosecute any alcohol or drug abuse patient.[facility] the event this information is protected by the Federal Confidentiality of Alcohol and Drug Abuse Patient Records regulations: The Federal rules restrict any use of the information to criminally investigate or prosecute any alcohol or drug abuse patient.[facility] the event this information is protected by the Federal Confidentiality of Alcohol and Drug Abuse Patient Records regulations: The Federal rules restrict any use of the information to criminally investigate or prosecute any alcohol or drug abuse patient.[facility] the event this information is protected by the Federal Confidentiality of Alcohol and Drug Abuse Patient Records regulations: The Federal rules restrict any use of the information to criminally investigate or prosecute any alcohol or drug abuse patient.[facility] the event this information is protected by the Federal Confidentiality of Alcohol and Drug Abuse Patient Records regulations: The Federal rules restrict any use of the information to criminally investigate or prosecute any alcohol or drug abuse patient.[facility] the event this information is protected by the Federal Confidentiality of Alcohol and Drug Abuse Patient Records regulations: The Federal rules restrict any use of the information to criminally investigate or prosecute any alcohol or drug abuse patient.[facility] the event this information is protected by the Federal Confidentiality of Alcohol and Drug Abuse Patient Records regulations: The Federal rules restrict any use of the information to criminally investigate or prosecute any alcohol or drug abuse patient.[facility] the event this information is protected by the Federal Confidentiality of Alcohol and Drug Abuse Patient Records regulations: The Federal rules restrict any use of the information to criminally investigate or prosecute any alcohol or drug abuse patient.[facility] the event this information is protected by the Federal Confidentiality of Alcohol and Drug Abuse Patient Records regulations: The Federal rules restrict any use of the information to criminally investigate or prosecute any alcohol or drug abuse patient.[facility] the event this information is protected by the Federal Confidentiality of Alcohol and Drug Abuse Patient Records regulations: The Federal rules restrict any use of the information to criminally investigate or prosecute any alcohol or drug abuse patient.[facility] the event this information is protected by the Federal Confidentiality of Alcohol and Drug Abuse Patient Records regulations: The Federal rules restrict any use of the information to criminally investigate or prosecute any alcohol or drug abuse patient.[facility] the event this information is protected by the Federal Confidentiality of Alcohol and Drug Abuse Patient Records regulations: The Federal rules restrict any use of the information to criminally investigate or prosecute any alcohol or drug abuse patient.[facility] the event this information is protected by the Federal Confidentiality of Alcohol and Drug Abuse Patient Records regulations: The Federal rules restrict any use of the information to criminally investigate or prosecute any alcohol or drug abuse patient.[facility] the event this information is protected by the Federal Confidentiality of Alcohol and Drug Abuse Patient Records regulations: The Federal rules restrict any use of the information to criminally investigate or prosecute any alcohol or drug abuse patient.[facility] the event this information is protected by the Federal Confidentiality of Alcohol and Drug Abuse Patient Records regulations: The Federal rules restrict any use of the information to criminally investigate or prosecute any alcohol or drug abuse patient.[facility] the event this information is protected by the Federal Confidentiality of Alcohol and Drug Abuse Patient Records regulations: The Federal rules restrict any use of the information to criminally investigate or prosecute any alcohol or drug abuse patient.[facility] the event this information is protected by the Federal Confidentiality of Alcohol and Drug Abuse Patient Records regulations: The Federal rules restrict any use of the information to criminally investigate or prosecute any alcohol or drug abuse patient.[facility] the event this information is protected by the Federal Confidentiality of Alcohol and Drug Abuse Patient Records regulations: The Federal rules restrict any use of the information to criminally investigate or prosecute any alcohol or drug abuse patient.[facility] the event this information is protected by the Federal Confidentiality of Alcohol and Drug Abuse Patient Records regulations: The Federal rules restrict any use of the information to criminally investigate or prosecute any alcohol or drug abuse patient.[facility] the event this information is protected by the Federal Confidentiality of Alcohol and Drug Abuse Patient Records regulations: The Federal rules restrict any use of the information to criminally investigate or prosecute any alcohol or drug abuse patient.[facility] the event this information is protected by the Federal Confidentiality of Alcohol and Drug Abuse Patient Records regulations: The Federal rules restrict any use of the information to criminally investigate or prosecute any alcohol or drug abuse patient.[facility] Care Teams (unrecognized sec tion and content) [...] November 29, 2023 End: November 29, 2023 Club Director Relationship Specialty Start Date End Date Gabino Owen MD PCP - General Family Medicine 11/10/20 Club Director Relationship Specialty Start Date End Date Gabino Owen MD PCP - General Family Medicine 11/10/20 Club Director Relationship Specialty Start Date End Date Gabino Owen MD PCP - General Family Medicine 11/10/20 Club Director Relationship Specialty Start Date End Date Gabino Owen MD PCP - General Family Medicine 11/10/20 Club Director Relationship Specialty Start Date End Date Gabino Owen MD PCP - General Family Medicine 11/10/20 Club Director Relationship Specialty Start Date End Date Gabino Owen MD PCP - General Family Medicine 11/10/20 Club Director Relationship Specialty Start Date End Date Gabino Owen MD PCP - General Family Medicine 11/10/20 Club Director Relationship Specialty Start Date End Date Gabino Owen MD PCP - General Family Medicine 11/10/20 Team Status: Inactive Member Role Status Dates Analia Holliday , DAVID Primary Care Provider, Attending Provider Active Club Director Relationship Specialty Start Date End Date Analia Holliday CNP [address] [address] PCP - General Family Medicine 06/06/23 Club Director Relationship Specialty Start Date End Date Analia Holliday SMELTING ENGINEER [address] [place] [phone] PCP - General Family Medicine 06/06/23 Club Director Relationship Specialty Start Date End Date Analia Holliday CNP [address] [place] [phone] PCP - General Family Medicine 06/06/23 Club Director Relationship Specialty Start Date End Date Analia Holliday, SMELTING ENGINEER [address] [place] [address] PCP - General Family Medicine 06/06/23 Club Director Relationship Specialty Start Date End Date Analia Holliday, SMELTING ENGINEER [address] [place] [address] PCP - General Family Medicine 06/06/23 Club Director Relationship Specialty Start Date End Date Analia Holliday, SMELTING ENGINEER [address] [place] [address] PCP - General Family Medicine 06/06/23 Club Director Relationship Specialty Start Date End Date Analia Holliday, SMELTING ENGINEER [address] [place] [address] PCP - General Family Medicine 06/06/23 Club Director Relationship Specialty Start Date End Date Analia Holliday, SMELTING ENGINEER [address] [place] [address] PCP - General Family Medicine 06/06/23 Club Director Relationship Specialty Start Date End Date Analia Holliday, SMELTING ENGINEER [address] [place] [address] PCP - General Family Medicine 06/06/23 Club Director Relationship Specialty Start Date End Date Analia Holliday, SMELTING ENGINEER [address] [place] [address] PCP - General Family Medicine 06/06/23 Club Director Relationship Specialty Start Date End Date Analia Holliday, SMELTING ENGINEER [address] [place] [address] PCP - General Family Medicine 06/06/23 Club Director Relationship Specialty Start Date End Date Analia Holliday CNP [address] [place] [phone] PCP - General Family Medicine 06/06/23 Club Director Relationship Specialty Start Date End Date Analia Holliday CNP [address] [place] [phone] PCP - General Family Medicine 06/06/23 Team Status: Active Member Role Status Dates Analia Holliday DNP Primary Care Provider Active Start: December 27, 2023 Dara Butler DO Attending Provider Active Sta rt: December 27, 2023 Team Status: Inactive Member Role Status Dates Ana Bolton DO Attending Provider Active Start: January 01, 2024 End: January 01, 2024 Club Director Relationship Specialty Start Date End Date Analia Holliday CNP [address] [place] [phone] PCP - General Family Medicine 06/06/23 Team Status: Active Member Role Status Dates Analia Dennis APRN [facility] Primary Care Provider Active Team Status: Inactive Member Role Status Dates Analia Dennis APRN [facility] Primary Care Provider, Attending Provider Active Start: March 19, 2024 End: March 19, 2024 Club Director Relationship Specialty Start Date End Date Analia Holliday CNP [address] [place] [phone] PCP - General Family Medicine 06/06/23 Club Director Relationship Specialty Start Date End Date Gabino Owen MD PCP - General Family Medicine 11/10/20 06/05/23 Club Director Relationship Specialty Start Date End Date Analia Holliday CNP [address] [place] [phone] PCP - General Family Medicine 06/06/23 Club Director Relationship Specialty Start Date End Date Analia Holliday, SMELTING ENGINEER [address] [phone] PCP - General Family Medicine 06/06/23 Club Director Relationship Specialty Start Date End Date Analia Holliday, SMELTING ENGINEER [address] [facility] [place] [phone] PCP - General Family Medicine 06/06/23 Club Director Relationship Specialty Start Date End Date Analia Holliday, SMELTING ENGINEER [address] [facility] [place] [phone] PCP - General Family Medicine 06/06/23 Club Director Relationship Specialty Start Date End Date Jennifer Frazier MD [address] [place] [phone] PCP - General Family Medicine 06/11/24 Club Director Relationship Specialty Start Date End Date Kyree Noguera MD [address] [place] [address] (Fax) PCP - General Family Medicine 12/13/22 Kyree Noguera MD [address] [place] [address] (Fax) PCP - [employer] 11/20/22 Club Director Relationship Specialty Start Date End Date Kyree Noguera MD [address] [place] [address] (Fax) PCP - General Family Medicine 12/13/22 Kyree Noguera MD [address] [place] [address] (Fax) PCP - [employer] 11/20/22 Club Director Relationship Specialty Start Date End Date Kyree Noguera MD [address] [place] [address] (Fax) PCP - General Family Medicine 12/13/22 Kyree Noguera MD [address] [place] [address] (Fax) PCP - [employer] 11/20/22 Club Director Relationship Specialty Start Date End Date Jennifer Frazier MD [address] [place] [phone] PCP - General Family Medicine 06/11/24 Club Director Relationship Specialty Start Date End Date Kyree Noguera MD [address] [place] [phone] (Fax) PCP - General Family Medicine 12/13/22 Kyree Noguera MD [address] [place] [address] (Fax) PCP - [employer] 11/20/22 Club Director Relationship Specialty Start Date End Date Kyree Noguera MD [address] [place] [address] (Fax) PCP - General Family Medicine 12/13/22 Kyree Noguera MD [address] [place] [address] (Fax) PCP - [employer] 11/20/22 Club Director Relationship Specialty Start Date End Date Jennifer Frazier MD [address] [place] [phone] PCP - General Family Medicine 06/11/24 Club Director Relationship Specialty Start Date End Date Jennifer Frazier MD [address] [facility] [place] [phone] PCP - General Family Medicine 06/11/24 Team Status: Active Member Role Status Dates Analia Dennis APRN [facility] Attending Provider Active Start: June 25, 2024 Hayley Jewell DO Primary Care Provider Active Start: June 25, 2024 Team Status: Active Member Role Status Dates Hayley Jewell DO Primary Care Provider Active Start: June 27, 2024 Shadia Encarnacion CMA Attending Provider Active Start: June 27, 2024 Team Status: Active Member Role Status Dates Analia Dennis APRN [facility] Attending Provider Active Start: June 30, 2024 Hayley Jewell DO Primary Care Provider Active Start: June 30, 2024 Team Status: Inactive Member Role Status Dates Analia Dennis APRN [facility] Primary Care Provider, Attending Provider Active Start: July 08, 2024 End: July 08, 2024 Team Status: Active Member Role Status Dates Analia Dennis APRN [facility] Primary Care Provider, Attending Provider Active Start: July 09, 2024 Team Status: Active Member Role Status Dates Analia Dennis APRN [facility] Primary Care Provider Active Start: July 112023 Marshall Bolden DO Attending Provider Active Start : July 11, 2024 Team Status: Active Member Role Status Dates Analia Dennis APRN [facility] Primary Care Provider Active Start: July 142023 Shadia Encarnacion CMA Attending Provider Active Start: July 14, 2024 Team Status: Active Member Role Status Dates Analia Dennis APRN [facility] Primary Care Provider Active Start: July 152023 Nae Ibarra Attending Provider Active Start: 2023 Team Status: Inactive Member Role Status Dates Analia Dennis APRN [facility] Primary Care Provider, Attending Provider Active Start: July 24, 2024 End: July 24, 2024 Team Status: Inactive Member Role Status Dates DENICE Eller Attending Provider Act [place] Start: July 24, 2024 End: July 24, 2024 Club Director Relationship Specialty Start Date End Date Jennifer Frazier MD [address] [facility] [phone] PCP - General Family Medicine 06/11/24 Club Director Relationship Specialty Start Date End Date Jennifer Frazier MD [address] [place] [facility] [place] [address] PCP - General Family Medicine 06/11/24 Club Director Relationship Specialty Start Date End Date Jennifer Frazier MD [address] [place] [address] PCP - General Family Medicine 06/11/24 Team Status: Inactive Member Role Status Dates Paula Alberts DO Attending Provider Active Sta rt: October 24, 2024 End: October 24, 2024 Analia Dennis APRN [facility]UR[facility]-[place] Primary Care Provider Active Start: October 24, 2024 End: October 24, 2024 Goals (unrecognized section and content) Goals [...] BE BASED ON THE PRIMARY CLINICAL RECORDS. [employer] provides no warranty or guarantee of the accuracy or completeness of information in this document.
[2024-11-04 11:13] LABS: Basophils Percent Auto 0.5 % (0.2-2.0); Eosinophils Absolute Auto 0.1 10^3/uL (0.0-0.7); Eosinophils Percent Auto 1.6 % (0.9-7.0); Hematocrit 39.8 % (36.0-48.0); Hemoglobin 14.1 g/dL (12.0-16.0); Immature Granulocytes Abs Auto 0.02 10^3/uL (0.00-0.03); Immature Granulocytes Pct Auto 0.3 % (0.0-0.5); Lymphocytes Absolute Auto 2.7 10^3/uL (1.2-3.8); Lymphocytes Percent Auto 43.9 % (20.5-60.0); Mean Corpuscular HGB Conc 35.4 g/dL (29.9-35.2); Mean Corpuscular Hemoglobin 32.1 pg (26.7-34.0); Mean Corpuscular Volume 90.7 fL (81.0-99.0); Mean Platelet Volume 10.4 fL (9.5-13.5); Monocytes Absolute Auto 0.5 10^3/uL (0.3-0.8); Neutrophils Absolute Auto 2.9 10^3/uL (1.4-6.5); Neutrophils Percent Auto 45.7 % (43.0-75.0); Platelet Count 239 10^3/uL (150-450); Red Blood Count 4.39 10^6/uL (4.20-5.40); Red Cell Distribution Width 11.5 % (11.0-15.0); White Blood Count 6.2 10^3/uL (4.0-11.0)
--- NOTE | 2024-11-04 11:18 | ED.GENADUL1 ---
HPI HPI - General Adult General Chief complaint: Nausea/Vomiting/Diarrhea Stated complaint: VOMITTING DIARRHEA Time Seen by Provider: 11/04/24 10:45 Source: patient Mode of arrival: walk-in Limitations: no limitations History of Present Illness HPI narrative: This 23-year-old female patient presents with 4-day history of nausea, vomiting and diarrhea. She has vomited once today and the diarrhea has almost resolved. She denies chills or fever or bodyaches. She has a history of bradycardia in the past for which she has seen a compress machine operator. Related Data Home Medications ?Medication ?Instructions ?Recorded ?Confirmed hyoscyamine sulfate 0.375 mg 0.375 mg PO BID 12/27/23 11/04/24 tablet,extended release,12 hr escitalopram oxalate 5 mg tablet 5 mg PO DAILY 03/24/24 11/04/24 (Lexapro) Previous Rx's ?Medication ?Instructions ?Recorded dicyclomine 10 mg capsule 10 mg PO QID PRN abdominal pain 03/24/24 #12 caps ondansetron 4 mg disintegrating 4 mg PO Q6H PRN nausea and 11/04/24 tablet vomiting #10 tabs Allergies Allergy/AdvReac Type Severity Reaction Status Date / Time metronidazole (From Flagyl) Allergy Hives Verified 11/04/24 10:46 Opioid HPI Opioid Management Most Recent Opioid Data: Last Pain Scale 9 01/01/24 11:11 01/01/24 Review of Systems ROS Status of ROS 10 or more systems reviewed and unremarkable except as noted in history and below PFSH PFSH Medical History History of IBS ?Z87.19 - Personal history of other diseases of the digestive system (ICD-10) History of endometriosis ?Z87.42 - Personal history of other diseases of the female genital tract (ICD-10) History of Clostridioides difficile colitis ?Z86.19 - Personal history of other infectious and parasitic diseases (ICD-10) Epigastric pain ?R10.13 - Epigastric pain (ICD-10) Nausea ?R11.0 - Nausea (ICD-10) Acute sinusitis due to respiratory syncytial virus (RSV) ?J01.90 - Acute sinusitis, unspecified (ICD-10) ?B97.4 - Respiratory syncytial virus as the cause of diseases classified elsewhere (ICD-10) Shoulder pain ?M25.519 - Pain in unspecified shoulder (ICD-10) Syncope ?R55 - Syncope and collapse (ICD-10) Paresthesia and pain of extremity ?R20.2 - Paresthesia of skin (ICD-10) ?M79.609 - Pain in unspecified limb (ICD-10) Paresthesia ?R20.2 - Paresthesia of skin (ICD-10) Back pain ?M54.9 - Dorsalgia, unspecified (ICD-10) Insomnia ?G47.00 - Insomnia, unspecified (ICD-10) Depression ?F32.A - Depression, unspecified (ICD-10) Anxiety ?F41.9 - Anxiety disorder, unspecified (ICD-10) COVID-19 ?U07.1 - COVID-19 (ICD-10) Pleurisy ?R09.1 - Pleurisy (ICD-10) IBS (irritable bowel syndrome) ?K58.9 - Irritable bowel syndrome without diarrhea (ICD-10) GERD (gastroesophageal reflux disease) ?K21.9 - Gastro-esophageal reflux disease without esophagitis (ICD-10) Palpitations ?R00.2 - Palpitations (ICD-10) Low vitamin D level ?R79.89 - Other specified abnormal findings of blood chemistry (ICD-10) Fatigue ?R53.83 - Other fatigue (ICD-10) Ovarian cyst ?N83.209 - Unspecified ovarian cyst, unspecified side (ICD-10) Pancreatitis ?K85.90 - Acute pancreatitis without necrosis or infection, unspecified (ICD-10) Abdominal pain ?R10.9 - Unspecified abdominal pain (ICD-10) Altered bowel function ?R19.8 - Other specified symptoms and signs involving the digestive system and abdomen (ICD-10) Diarrhea ?R19.7 - Diarrhea, unspecified (ICD-10) Abnormal uterine bleeding ?N93.9 - Abnormal uterine and vaginal bleeding, unspecified (ICD-10) Pelvic pain ?R10.2 - Pelvic and perineal pain (ICD-10) Fallopian tube disorder ?N83.9 - Noninflammatory disorder of ovary, fallopian tube and broad ligament, unspecified (ICD-10) Muscle weakness ?M62.81 - Muscle weakness (generalized) (ICD-10) Dehydration ?E86.0 - Dehydration (ICD-10) Clostridium difficile infection ?A49.8 - Other bacterial infections of unspecified site (ICD-10) 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 - Personal history of other medical treatment (ICD-10) Surgical History History of removal of skin mole ?Z98.890 - Other specified postprocedural states (ICD-10) ?Z87.2 - Personal history of diseases of the skin and subcutaneous tissue (ICD-10) History of wisdom tooth extraction ?K08.409 - Partial loss of teeth, unspecified cause, unspecified class (ICD-10) History of esophagogastroduodenoscopy (EGD) ?Z98.890 - Other specified postprocedural states (ICD-10) History of colonoscopy ?Z98.890 - Other specified postprocedural states (ICD-10) Family History Other Family history of hypertension Family history of prostate cancer Family history of stroke Social History Within the past year, how often did you have a drink containing alcohol: never Score interpretation: A score less than 3 is consistent with normal alcohol consumption. 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 Initially the heart rate was low in the 30s but on the monitor she had frequent ectopics which were likely not being read by the monitor. HEENT exam is normal to inspection the oral cavity is moist. Neck is supple. Lung sounds are clear to auscultation bilaterally with good air entry. Heart has regular rate and rhythm. S1 and S2 normal abdomen soft nontender. She moves all extremities actively. Constitutional Vital Signs, click to edit/add: Last Vital Signs Temp 98.4 F 11/04/24 10:48 Pulse 74 11/04/24 13:30 Resp 27 H 11/04/24 13:30 BP 93/55 11/04/24 13:35 Pulse Ox 97 11/04/24 13:30 O2 Del Method Room Air 11/04/24 10:48 Course Vital Signs Vital signs: Vital Signs Temperature 98.4 F 11/04/24 10:48 Pulse Rate 35 L 11/04/24 10:48 Respiratory Rate 18 11/04/24 10:48 Blood Pressure 123/87 11/04/24 10:48 Pulse Oximetry 99 11/04/24 10:48 Oxygen Delivery Method Room Air 11/04/24 10:48 Temperature 98.4 F 11/04/24 10:48 Pulse Rate 74 11/04/24 13:30 Respiratory Rate 27 H 11/04/24 13:30 Blood Pressure 93/55 11/04/24 13:35 Pulse Oximetry 97 11/04/24 13:30 Oxygen Delivery Method Room Air 11/04/24 10:48 Medical Decision Making MDM Narrative Medical decision making narrative: Patient has runs of ventricular bigeminy which she is known to have and tends to drop her heart rate at times but remains asymptomatic. Labs unremarkable. She was treated with a liter of IV saline and IV Zofran upon discharge placed on Zofran. She is advised to contact with PCP for further management and is to return anytime for worsening symptoms. Lab Data Labs: Lab Results 11/04/24 11/04/24 Range/Units 11:00 12:45 WBC 6.2 (4.0-11.0) 10^3/uL RBC 4.39 (4.20-5.40) 10^6/uL Hgb 14.1 (12.0-16.0) g/dL Hct 39.8 (36.0-48.0) % MCV 90.7 (81.0-99.0) fL MCH 32.1 (26.7-34.0) pg MCHC 35.4 H (29.9-35.2) g/dL RDW 11.5 (11.0-15.0) % Plt Count 239 (150-450) 10^3/uL MPV 10.4 (9.5-13.5) fL Neut % (Auto) 45.7 (43.0-75.0) % Lymph % (Auto) 43.9 (20.5-60.0) % [place] % (Auto) 8.0 (1.7-12.0) % Eos % (Auto) 1.6 (0.9-7.0) % Baso % (Auto) 0.5 (0.2-2.0) % Neut # (Auto) 2.9 (1.4-6.5) 10^3/uL Lymph # (Auto) 2.7 (1.2-3.8) 10^3/uL [place] # (Auto) 0.5 (0.3-0.8) 10^3/uL Eos # (Auto) 0.1 (0.0-0.7) 10^3/uL Baso # (Auto) 0.0 (0.0-0.1) 10^3/uL Abs Immat Gran (auto) 0.02 (0.00-0.03) 10^3/uL Imm/Tot Granulo (auto) 0.3 (0.0-0.5) % Sodium 141 (136-145) mmol/L Potassium 3.7 (3.5-5.1) mmol/L Chloride 103 (98-107) mmol/L Carbon Dioxide 26.3 (21.0-32.0) mmol/L Anion Gap 15.4 BUN 13.0 (7.0-18.0) mg/dL Creatinine 0.84 (0.55-1.02) mg/dL Est GFR ( Amer) >60 (>=60 mL/min/1.73m^2) Est GFR (Non-Af Amer) >60 (>=60 mL/min/1.73m^2) BUN/Creatinine Ratio 15.5 Glucose 106 (74-106) mg/dL Calcium 9.3 (8.5-10.1) mg/dL Magnesium 1.9 (1.8-2.4) mg/dL Total Bilirubin 0.8 (0.2-1.0) mg/dL AST 14 L (15-37) U/L ALT 16 (14-59) U/L Alkaline Phosphatase 61 (46-116) U/L Troponin I High Sens 18.3 (4.0-51.3) pg/mL Total Protein 7.5 (6.4-8.2) g/dL Albumin 4.1 (3.4-5.0) g/dL Globulin 3.4 g/dL Albumin/Globulin Ratio 1.2 Lipase 28.0 (16.0-77.0) U/L Serum HCG, Qual Negative (NEGATIVE) Urine Color Lt. yellow (YELLOW) Urine Clarity Clear (CLEAR) Urine pH 6.0 (5.0-9.0) Ur Specific [place] 1.020 (1.005-1.025) Urine Protein Trace (NEG/TRACE) mg/dL Urine Glucose (UA) Negative (NEGATIVE) mg/dL Urine Ketones 15 A (NEGATIVE) mg/dL Urine Occult Blood Negative (NEGATIVE) Urine Nitrite Negative (NEGATIVE) Urine Bilirubin Negative (NEGATIVE) Urine Urobilinogen 0.2 (0.2-1.0) EU/dL Ur Leukocyte Esterase Negative (NEGATIVE) Discharge Plan Discharge Stand Alone Forms: Work/School Release Chief Complaint: Nausea/Vomiting/Diarrhea Clinical Impression: Nausea, vomiting and diarrhea Patient Disposition: Home, Self-Care Time of Disposition Decision: 14:02 Condition: Good Mode of Transportation: Private Vehicle Prescriptions / Home Meds: New ondansetron 4 mg tablet,disintegrating 4 mg PO Q6H PRN (Reason: nausea and vomiting) Qty: 10 0RF No Action hyoscyamine sulfate 0.375 mg tablet extended release 12 hr 0.375 mg PO BID escitalopram oxalate [Lexapro] 5 mg tablet 5 mg PO DAILY dicyclomine 10 mg capsule 10 mg PO QID PRN (Reason: abdominal pain) Qty: 12 0RF Print Language: Trinidadian Instructions: Acute Nausea and Vomiting (ED) Additional Instructions: Liquid diet for 24 hours. Zofran as needed for nausea and vomiting. Follow-up with your physician in the next couple days. Return for worsening symptoms. Referrals: FÁTIMA KENDALL [Primary Care Provider] - 1 week
[2024-11-04 11:26] LABS: Alanine Aminotransferase 16 U/L (14-59); Albumin Globulin Ratio 1.2; Albumin Level 4.1 g/dL (3.4-5.0); Alkaline Phosphatase 61 U/L (46-116); Anion Gap 15.4; Aspartate Amino Transferase 14 U/L (15-37); BUN Creatinine Ratio 15.5; Bilirubin Total 0.8 mg/dL (0.2-1.0); Calcium 9.3 mg/dL (8.5-10.1); Carbon Dioxide 26.3 mmol/L (21.0-32.0); Chloride 103 mmol/L (98-107); Estimated GFR (African America >60 (>=60 mL/min/1.73m^2); Estimated GFR (Non-African Ame >60 (>=60 mL/min/1.73m^2); Globulin 3.4 g/dL; Glucose 106 mg/dL (74-106); Potassium 3.7 mmol/L (3.5-5.1); Sodium 141 mmol/L (136-145); Total Protein 7.5 g/dL (6.4-8.2)
[2024-11-04 11:28] LABS: HCG Qualitative NEGATIVE (NEGATIVE); Internal Control Within Normal Limits
[2024-11-04 11:29] LABS: Magnesium 1.9 mg/dL (1.8-2.4); Troponin I High Sensitivity 18.3 pg/mL (4.0-51.3)
[2024-11-04] MEDS: LACTATED RINGER'S SOLUTION 1,000 ML 1000 ML IV (11:46)
[2024-11-04 13:03] LABS: Bilirubin Urine NEGATIVE (NEGATIVE); Blood Urine NEGATIVE (NEGATIVE); Clarity Urine CLEAR (CLEAR); Color Urine LT. YELLOW (YELLOW); Glucose Urine UA NEGATIVE (NEGATIVE); Ketones Urine 15 mg/dL (NEGATIVE); Leukocyte Esterase Urine NEGATIVE (NEGATIVE); Nitrite Urine NEGATIVE (NEGATIVE); Protein Urine TRACE mg/dL (NEG/TRACE); Urobilinogen Urine 0.2 EU/dL (0.2-1.0)
[2024-11-04 13:04] LABS: Urine Microscopic Indicated NO
== END 2024-11-04 14:38 | disposition home or self-care (01) ==
PROVIDERS: Emergency Provider Emergency Medicine; PCP Nurse Practitioner Family
DX: R11.2 Nausea with vomiting, unspecified (principal); R19.7 Diarrhea, unspecified
CPT/HCPCS: 36415; 80053; 81003; 83690; 83735; 84484; 84703; 85025; 93005; 96360; 96361; 99284

== ENCOUNTER 2024-11-05 08:37 | Outpatient (REF) | payer BC, SELFPAY | END 2024-11-05 08:38 | disposition home or self-care (01) | LOC: LAB 08:37 | PROVIDERS: PCP Nurse Practitioner Family; Visit Provider Nurse Practitioner Family | DX: R19.7 Diarrhea, unspecified (principal) | CPT/HCPCS: 36415; 87324 ==

== ENCOUNTER 2025-04-18 10:00 | Outpatient (OUT) | payer OTHER, SELFPAY ==
--- OUTSIDE RECORDS SUMMARY | 2025-03-24 13:48 | XMS_ITS ---
Author Name Auto Generated Organization OHIP Care Team Providers Care Public Health Technician Name Role Phone ELIF BOYLE Attending Unavailable REFUGIO HARRINGTON Attending Unavailable REFUGIO HARRINGTON Attending Unavailable ZENON HUGGINS Attending Unavailable ZENON PRETTY Attending Unavailable ANALIA GIL Primary Care Unavailable NAE IBARRA Attending Unavailable JENNIFER FRAZIER Primary Care Unavailable JENNIFER FRAZIER Primary Care Unavailable DARA KOENIG Referring Unavailable MERRICK RADFORD Attending Unavailable NAE IBARRA Referring Unavailable JENNIFER FRAZIER Primary Care Unavailable Analia Dennis Attending Unavailable Analia Dennis Admitting Unavailable PROBLEMS DATE TYPE CONDITION / CODE ATTENDING STATUS [facility] 09/03/2024 Active Generalized abdominal pain / R10.84(ICD-10) MERRICK RADFORD Active [facility] 09/03/2024 Active Change in bowel habits / R19.4(ICD-10) MERRICK RADFORD Active [facility] 05/02/2022 Admitting Diagnosis Irritable bowel syndrome with diarrhea / K58.0(ICD-10) ZENON HUGGINS Active [facility] 07/28/2024 Admitting Diagnosis Right lower quadrant pain / R10.31(ICD-10) ZENON HUGGINS Active 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 07/24/2024 Unknown Urinary tract infection, site not specified / N39.0(ICD-10) Analia Dennis [facility] 07/15/2024 Active Vitamin B12 deficiency / E53.8(ICD-10) [facility] 07/15/2024 Active Vitamin D deficiency / E55.9(ICD-10) [facility] PROCEDURES No Procedure Records Found RESULTS HISTORY PHYSICAL Observed: 09/03/2024 12:30 PM Status: COMPLETED [facility] [id number] Author: DARA KOENIG JR, DO Service: Gastroenterology Author Type: Physician [...] Plan: COLONOSCOPY DIAGNOSTIC, COLONOSCOPY DIAGNOSTIC SIGNATURE: Dara Koenig Jr., DO PATIENT NAME: Rosa Alonzo DATE: September 03, 2024 TIME: 10:18 AM PAGER/CONTACT #: ARNIE POSTPROC EVAL Observed: 09/03/2024 10:47 AM Status: COMPLETED Source: [facility] HNO ID: [id number] Author: MERRICK RADFORD APRN.CRNA Service: ? Author Type: Nurse Associate Store Director Type: Anesthesia Postprocedure Evaluation Filed: 09/03/2024 10:48 Note Text: POST ANESTHESIA EVALUATION NOTE : 2000 Procedure Summary Date: 09/03/24 Room / Location: [facility] Endoscopy [facility] Anesthesia Start: 1026 Anesthesia Stop: 1043 Procedure: COLONOSCOPY DIAGNOSTIC Diagnosis: Generalized abdominal pain Change in bowel habits (Generalized abdominal pain) (Diarrhea) (Change in bowel habits) Scheduled Providers: Dara Koenig Jr., DO; Merrick Radford APRN.CRNA; Karla Ball RN Responsible Provider: Merrick Radford APRN.CRNA Anesthesia Type: MAC ASA Status: 2 [...] care. Anesthesia Observations No Documentation SIGNATURE: Merrick Radford APRN.CRNA PATIENT NAME: Rosa Alonzo DATE: September 03, 2024 TIME: 10:47 AM CSN: [id number] TISS PATH BX REPORT Collected: 09/03/19 10:39 AM Status: F Source: [facility] Order Comment: Specimen Type : TISSUE SPECIMEN Ordering Facility: [facility] Address: [address] [place] [address] TYPE CODE TESTS RESULT OUT OF RANGE REFERENCE UNITS PATHOLOGY [id number] CASE REPORT Result Comment: Surgical Pat hology Report Case: [id number] Authorizing Provider: Dara Koenig Jr., DO Collected: 09/03/2024 10:39 AM Ordering Location: [facility] Endoscopy Received: 09/03/2024 11:57 PM [facility] Pathologist: Martin Ledesma MD Specimen: Colon, Biopsy, random colon, r/o microscopic colitis PATHOLOGY [id number] FINAL DIAGNOSIS Result Comment: A. Colon, bi opsy: - Colonic mucosa with no diagnostic abnormalities. at 1426 EST PATHOLOGY [id number] GROSS DESCRIPTION Result Comment: A. Colon, Bi opsy Received in formalin are multiple pieces of cano-brown, soft tissue aggregating to 1.8 x 0.3 x 0.2 cm. Totally submitted in one cassette. DL September 04, 2024 3:07 AM Gross examination performed at [facility], [address] [place] [address] PATHOLOGY [facility] FINAL PERFORMING LAB Result Comment: Diagnostic i nterpretation performed at: [facility], [address] [place] [address] CLIA# [id number] Fitter Placer: Mike Vasques MD Performed By: #### [id number] # ### [facility] CLIA [id number] [address] [place] [address] [place] [facility] CLIA [id number] [address] [place], [place] [id number] [place] COLONOSCOPY Observed: 09/03/2024 10:20 AM Status: F Source: [facility] Gastrointestinal Endoscopy Patient Name: Rosa Alonzo Procedure Date: 09/03/2024 10:20 AM Date of : 2000 Admit Type: Outpatient Age: 23 Gender: Female Note Status: Finalized Attending MD: Dara Koenig Jr, DO, [id number] Procedure: Colonoscopy Indications: Generalized abdominal pain, Diarrhea, Change in bowel habits Providers: Dara Koenig Jr, DO Patient Profile: This is a 23 year old female. Refer to note in patient chart for documentation of history and physical. Last Colonoscopy: 3 years ago. Referring Physician: Dara Koenig Jr, DO (Referring MD) Medicines: Propofol per [...] the patient. Procedure Code(s): --- Professional --- 87258, Colonoscopy, flexible; with biopsy, single or multiple Diagnosis Code(s): --- Professional --- R10.84, Generalized abdominal pain R19.7, Diarrhea, unspecified R19.4, Change in bowel habit CPT copyright 2020 [employer]. All rights reserved. The codes documented in this report are preliminary and upon coremaker helper review may be revised to meet current compliance requirements. Attending Participation: I personally performed the entire procedure. MD Dara Egan Jr, DO 09/03/2024 10:46:48 AM This report has been signed electronically by Dara Koenig Jr, DO Number of Addenda: 0 Note Initiated On: 09/03/2024 10:20 AM Procedure Start: 10:28:48 AM Procedure End: 10:42:27 AM ANES PRE-OP Observed: 09/03/2024 10:18 AM Status: COMPLETED Source: [facility] HNO ID: [id number] Author: MERRICK RADFORD APRN.CRNA Service: ? Author Type: Nurse Associate Store Director Type: Anesthesia Preprocedure Evaluation Filed: 09/03/2024 10:18 Note Text: ANESTHESIOLOGY DAY OF SURGERY NOTE : 2000 Procedure Information Date/Time: 09/03/24 1230 Scheduled providers: Dara Koenig Jr., DO; Merrick Radford APRN.CRNA; Karla Ball RN Procedure: COLONOSCOPY DIAGNOSTIC Location: [facility] [place] Estimated body mass index is 19.74 kg/m? [...] and consent discussed: yes. Patient / Responsible Libertarian agrees to proceed: yes Patient / Surrogate [...] within 48 hours of Surgery/Procedure. SIGNATURE: Merrick Radford APRN.CRNA PATIENT NAME: Rosa Alonzo DATE: September 03, 2024 TIME: 10:18 AM CSN: [id number] NURSING PROG Observed: 09/03/2024 10:14 AM Status: COMPLETED Source: [facility] HNO ID: [id number] Author: SANJIV GARNER, RN Service: Nursing Author Type: Registered Nurse [...] declined follow up phone. Electronically Signed By: Sanjiv Garner RN In Department: [facility] [place] PROGRESS Observed: 07/28/2024 2:30 PM Status: COMPLETED Source: [facility] Attestation signed by Zenon Huggins MD at 07/28/2024 3:28 PM By [...] be an additional personal documentation from me. [facility] Gastroenterology Follow-Up Patient Visit CHIEF COMPLAINT Chief Complaint Patient presents with Follow-up Recurrent C Diff Nausea Diarrhea Constipation HISTORY OF PRESENT ILLNESS: Rosa Alonzo is a 23 y.o. female [...] endometriosis related. She is travelling soon to [place] next 15 days and was mentioning that she was having some UTI symptoms andrequested some medication just in case she starting the antibiotics for C diff and we instructed her that in case of confirming the UTI and starting the treatment to communicate with us to update and we might consider prescribing some Vancomycin course for her. PREVIOUS LABS/IMAGING/ENDOSCOPY: EGD was done in the [facility] 04/16/2024 The esophagus appeared normal. Regular Z-line 40 cm from the incisors The stomach appeared normal. Erythematous mucosa in the antrum The duodenum appeared normal. The cardia appeared normal. Done gastric emptying study 01/30/2024 -was normal EGD with EUS was doen in 09/06/2023 : - There was no sign of significant pathology in the main pancreatic duct. - There was no evidence of significant pathology in the left lobe of the liver and in the right lobe of the liver. - A polyp was found in the gallbladder body. - The celiac trunk was stenotic, as visualized endosonographically. - No specimens collected. Colonoscopy w/ FMT (08/15/2022): Impression: Unremarkable colon [...] with diarrhea Nausea Recurrent infections Underweight Urticaria Abnormal findings on imaging test Cyst of left ovary Depression Dysuria Menstrual disorder Long-term use of high-risk medication Miscarriage Pain due to genitourinary prosthetic devices, implants and grafts, initial encounter ([facility]) Palpitations Photosensitivity Renal vein stenosis Upper back pain Past Medical History: Past Medical History: Diagnosis Date C. difficile diarrhea 08/15/2022 Pancreatitis Past Surgical History: Past Surgical History: Procedure Laterality Date MOLE REMOVAL Left back WISDOM TOOTH EXTRACTION FAMILY HISTORY: No family history on file. SOCIAL HISTORY: Social History Tobacco Use Smoking status: Never Smokeless tobacco: Never Vaping Use Vaping status: Never Used Substance Use Topics Alcohol use: Never Drug use: Yes Types: Marijuana Comment: marijuana on occasional ALLERGIES: Metronidazole Current Medications: Current Outpatient Medications: dicyclomine (Bentyl) 10 mg capsule, Take 10 mg by mouth if needed each day., Disp: , Rfl: escitalopram (Lexapro) 10 mg tablet, Take 5 mg by mouth in the morning., Disp: , Rfl: hyoscyamine ER (Levbid) 0.375 mg 12 hr tablet, Take 1 tablet by mouth Twice daily at 6am and 6pm., Disp: , Rfl: ondansetron (Zofran) 4 mg tablet, Take 4 mg by mouth., Disp: , Rfl: ondansetron ODT (Zofran-ODT) 4 mg disintegrating tablet, Take 4 mg by mouth every 6 (six) hours if needed., Disp: , Rfl: amitriptyline (Elavil) 25 mg tablet, Take 25 mg by mouth in the morning., Disp: , Rfl: I reviewed and reconciled [...] NEUROLOGICAL: negative BEHAVIOR/PSYCH: negative PHYSICAL EXAM: Vitals: 07/28/24 1422 BP: 103/63 BP Location: Left arm Patient Position: Sitting BP Cuff Size: Adult Pulse: 63 Weight: 52.2 kg (115 lb) Height: 1.626 m (5' 4 ) Body mass index is 19.74 kg/m???. CONSTITUTIONAL: awake, alert and no apparent distress EYES: pupils equal, round and reactive to light; conjunctiva pink and normal appearing ENT: oral pharynx with moist mucus membranes HEMATOLOGIC/LYMPHATICS: no cervical lymphadenopathy and no supraclavicular lymphadenopathy LUNGS: No increased work of breathing, good air exchange, clear to auscultation bilaterally, no crackles or wheezing CARDIOVASCULAR: regular rate and rhythm, normal S1 and S2, no murmur noted and no edema ABDOMEN: normal bowel sounds, soft, non-distended and non-tender SKIN: no bruising or bleeding, no rashes and no jaundice NEURO: no focal deficits, moves all 4 extremities spontaneously, ambulates from chair to the exam table without difficulty LABORATORY DATA: CBC: No results found for: WBC , RBC , HGB , HCT , MCV , RDW , PLT PT/INR No results found for: PT , INR BMP: No results found for: NA , K , CL , BUN , CREATININE , EGFR , GLU LFTs: No results found for: BILITOT , BILIDIR , ALKPHOS , GGT , AST , ALT , ALBUMIN , PROT B12/Folate/Iron studies: No results found for: RCNOPMLP93 , FOLATE , IRON , TIBC , UIBC , IRONSAT , FERRITIN Viral Hepatitis No results found for: HEPAIGM , HAV , HEPBSAG , HEPBSAB , HEPBEAB , HEPBIGM , HEPBCAB , HEPBCOREAB , HBVNAT , HCVSCR , HEPCAB , HCVNAT , HCVPCR , HCVTMA Liver Workup No results found for: PHANI , SMOOTHMUSCAB , CERULOPLSM , D8YFICOVNSB , TTGA , IGA , TSH , FREET4 , AFP Pancreatitis No results found for: AMYLASE , LIPASE , TRIG , CALCIUM ASSESSMENT AND PLAN: Impression: Diarrhea s/p FMT x2 (12/2021 and 07/2022) likely 2/2 post-infectious IBS vs SIBO C. Diff, enteric panel, and calprotectin all negative (08/30) Plan: Initiate fiber supplementation with Citrucel 500 mg tablets once daily to help regulate bowel function. Advise the patient to monitor bowel habits and report any significant changes, especially while traveling. Discuss the potential relationship between symptom exacerbation and endometriosis, with further evaluation to be considered if symptoms persist. Instruct the patient to confirm a UTI diagnosis with testing before initiating treatment and to notify the clinic if antibiotics are started for UTI, at which point a course of Vancomycin for C. diff prophylaxis may be prescribed if clinically indicated. Provide guidance on maintaining hydration and dietary precautions during travel to minimize gastrointestinal symptoms. Follow up after her return from [place] to reassess symptoms and address any new developments. There are no diagnoses linked to this encounter. Thank you for allowing me to participate in this pleasant patient???s care. OFFICE VISIT Observed: 07/28/2024 2:30 PM Status: COMPLETED Source: [facility] [id number] [address] F Date Provider Department Center 07/28/2024 294-ZENON HUGGINS [facility] No family history on file Level of Service:31355 MT OFFICE/OUTPATIENT ESTABLISHED LOW MDM 20 MIN (GC) Reason for Visit and Comments: Follow-up [141339] - Recurrent C Diff Nausea [70] Diarrhea [35] Constipation [632363] 36 Observed: 07/25/2024 8:56 AM Status: COMPLETED Source: [facility] Follow-up message sent to stephanie marx via [employer]. 36 Observed: 07/24/2024 3:12 PM Status: COMPLETED Source: [facility] Patient LVM, hx of C Diff, r eports she has a UTI and wants to know if Dificid is recommended to be taken along with her UTI atb? Please advise. URINE CULTURE Observed: 07/24/2024 11:41 AM Status: F Source: [facility] 15,000 colonies/ml mixed bacterial skin contaminants 2 Days PERFORMED BY: [facility] [address] [place] [address] PATHOLOGIST NURSERYMAN ASSISTANT DEANNE JANG M.D. Performed By: #### CUU #### [address] TELEPHONE Observed: 07/24/2024 12:00 AM Status: COMPLETED Source: [facility] [id number] [address] F Date Provider Department Center 07/24/2024 SHYAM RUSH [facility] No family history on file VIT B12 SERPL-MCNC Collected: 07/15/2024 8:19 AM Sta tus: F Source: [facility] Order Comment: Specimen Type : BLOOD SPECIMEN Ordering Facility: [facility] Address: [address] [place] [address] TYPE CODE TESTS RESULT OUT OF RANGE REFERENCE UNITS LAB 2131-9(LOINC) Vit B12 SerPl-mCnc 442 642-8739 pg/mL Performed By: #### 213-9 ## ## [facility] CLIA [id number] [facility] [address] [place] 25([place])D3 SERPL-MCNC Collected: 07/15/20 8:19 AM Status: F Source: [facility] Order Comment: Specimen Type : BLOOD SPECIMEN Ordering Facility: [facility] Address: [address] [place] [address] TYPE CODE TESTS RESULT OUT OF RANGE REFERENCE UNITS LAB 1989-3(LOINC) 25(OH)D3 SerPl-mCnc 39.8 31.0-80.0 ng/mL Result Comment: Classificati on of 25 [place] Vitamin D status: Deficiency/Insufficiency: < or = 30 ng/ml. Sufficiency/Optimal Levels: 31-80 ng/mL Toxicity: > 100 ng/mL. Test performed by chemiluminescent immunoassay. Performed By: #### 1989-3 ## ## [facility] CLIA [id number] [address] [facility] [address] [place] [id number] [place] CNOV Observed: 07/15/2024 7:40 AM Status: COMPLETED Source: [facility] Office Visit (GILA) ROSA ALONZO ([id number]) 2000 F Date Time Provider Department 07/15/24 [...] touching your toes, sit-ups, using row machine retirement pain recommendations per primary care provider/pain clinic [...] Abs Lymph 1.00 - 4.00 k/uL 2.06 [place]% % 8.1 Abs [place] <0.87 k/uL 0.42 Eosin% % 4.3 Abs [...] ccp<15, phani ifa, hepatitis panel, quantiferon tb; Nae Ibarra [...] lipase 20, amylase 43;negative celiac, IGG subclasses;negative phani; 12/08/22 low vitamin D 24.5;normal cbc, cmp, esr 2, crp<0.3, uric acid 3.5, vitamin b12-594;negative rf<10, ccp<15, phani ifa, hepatitis panel, quantiferon tb; 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 NO swelling. Chronic current pain in neck upper back. More pain since off nsaids. Mild response with tylenol, misses motrin 00mg.Reports pain 5/10. Has minimal AM stiffness. Feels safe at home. Has enough food, supplies and medications. Overall mildly uncomfortable but happy with rheum care. No falls/fx/trauma/illness/oral sores/rash/hairloss/jaw pain/dysphagia/epistaxis/hemoptysis since last visit. No adverse effects with [...] for C.diff AND pancreatitis care, see METAL PRECISION MACHINE ASSEMBLER, start prn heat/ice/otc arthritis creams, low impact [...] happy with rheum care. No falls/fx/trauma/illness/oral sores/rash/hairloss/jaw pain/dysphagia/epistaxis/hemoptysis since last visit. No adverse effects with [...] aggravating triggers, December 09, 2021 SUBJECTIVE Ms. Travis is a 21 year old female who [...] C.diff Reports pain 09/29 No falls/fx/trauma/illness/oral sores/rash/hairloss/jaw pain/dysphagia/epistaxis/hemoptysis. No adverse effects with meds. No other [...] Dactylitis: no H/o precedent/frequent infection(s): as above Enthesopathy/[place]'s/heel/plantar tenderness: no Skin thickening, psoriasis, photosensitivity, purpura: rashes on UEs/LEs when in sun, itching when in hot bath/hives, hives with C.diff Nail changes: no Alpecia, patchy: yes with infection Eye inflammation: no SICCA: no Oral/nasal/genital ulcers: no GI problems-diarrhea/bleeding/IBD/Gluten intolerence/Dysphagia: gerd Fatigue: yes, sleeps 7 hr/night [...] hormones; G1, P0, 1miscarriage 10/2021 Colonoscopy: outside [facility] 2020 zach rawls Bone Density:no History of Fractures:no Height Loss: no IMMUNIZATION HX: Immunization History Administered Date(s) Administered COVID-19 original vaccine, age 12+ yr, monovalent ([place] [employer] - PURPLE TOP) 03/16/2021 04/06/2021 Pneumovax no Flu shot no Tetanus yes Last PPD: unsure PAST MEDICAL HISTORY: PMH headaches, s/p wisdom teeth extraction, s/p mole back removed PAST SURGICAL HISTORY: s/p wisdom teeth extraction, s/p mole back removed FAMILY HISTORY: mother-healthy;father- osteoarthritis;sister- sick frequently; 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 WSR [...] (115 lb) LMP 01/30/2024 (Approximate) BMI 19.74 kg/m? General Appearance: WD/WN, NAD. Appropriate grooming. Very [...] EXTREMITIES: Adequate pulses b/l UE ; No clubbing,discoloration,sclerodactyly, periungual erythema, digital ulcers, nail pitting, edema, [...] Z79.899 Long-term use of high-risk medication Ms. 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 NO swelling. [...] recurrent infection care, avoid triggers, see METAL PRECISION MACHINE ASSEMBLER, start prn heat/ice/otc arthritis creams, low impact [...] touching your toes, sit-ups, using row machine retirement pain recommendations per primary care provider/pain clinic [...] than 50% of time spent via video AND audio (virtual) or phone or face to face with patient, in consultation, and in addition to Counseling and Coordination of Care, explanation of diagnosis, and planning of further management; I spent a total of 30 minutes on the date of the service which included preparing to talk with the patient, video AND audio (virtual) or phone or [id number] patient care, completing clinical documentation, obtaining and/or [...] had the pleasure of seeing your patient, Rosa Travis. I have enclosed a copy of my [...] Workers' Compensation? No Do you need an spanish interpreter? No [facility] PROMIS CAT V2.0-PHYSICAL FUNCTION-28 DAYS [...] body? Without ANY difficulty Bend down to berry picker clothing from the floor? Without ANY difficulty [...] help my provider understand my health Agree Allergies As of Date: 07/15/2024 Noted Allergy Reaction METRONIDAZOLE 09/07/2020 1 - Mental Status Change 6 - Diarrhea 8 - GI Upset 4 - Hives 14 - Other: See Comments 2 - Rash 12 - Shortness of Breath 16 - Unknown 11 - Vomiting Date Reviewed: 07/15/2024 Reviewed by: Nae Ibarra MD - Fully Assessed Reason for Visit: Follow Up [171] Cmt: Follow-up on everything. Primary Visit Diagnosis:Chronic fatigue [R53.82] Other Visit Diagnoses:Vitamin B12 deficiency [E53.8] Vitamin D deficiency [E55.9] Generalized abdominal pain [R10.84] Urticaria [L50.9] Photosensitivity [L56.8] Chronic bilateral low back pain without sciatica [M54.50, G89.29] Cervicalgia [M54.2] Upper back pain [M54.9] Long-term use of high-risk medication [Z79.899] Order(s):VITAMIN B12 [SQB12] Order #: [id number] FUTURE VITAMIN D 25 HYDROXY [SQVITD] Order #: [id number] FUTURE Prescriptions as of 07/15/2024 - vancomycin (VANCOCIN) 125 mg capsule Take [...] Long-term use of high-risk medication [Z79.899] 07/15/2024 Other instructions from your clinician: May apply over the counter arthritis creams [...] touching your toes, sit-ups, using row machine retirement pain recommendations per primary care provider/pain clinic [...] Abs Lymph 1.00 - 4.00 k/uL 2.06 [place]% % 8.1 Abs [place] <0.87 k/uL 0.42 Eosin% % 4.3 Abs [...] ccp<15, phani ifa, hepatitis panel, quantiferon tb; Disposition: Return for low vit D/fatigue fu OV 6-12months. Follow-up and Disposition History for Encounter Date Provider Department Center 07/15/2024 5116-NAE IBARRA JULEEV Rej Encounter Status:Closed by NAE IBARRA on 07/15/24 PROGRESS Observed: 07/15/2024 7:40 AM Status: COMPLETED Source: [facility] HNO ID: [id number] Author: NAE IBARRA MD Service: ? 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 NO swelling. Chronic current pain in neck upper back. More pain since off nsaids. Mild response with tylenol, misses motrin 00mg.Reports pain 5/10. Has minimal AM stiffness. Feels safe at home. Has enough food, supplies and medications. Overall mildly uncomfortable but happy with rheum care. No falls/fx/trauma/illness/oral sores/rash/hairloss/jaw pain/dysphagia/epistaxis/hemoptysis since last visit. No adverse effects with [...] for C.diff AND pancreatitis care, see METAL PRECISION MACHINE ASSEMBLER, start prn heat/ice/otc arthritis creams, low impact [...] happy with rheum care. No falls/fx/trauma/illness/oral sores/rash/hairloss/jaw pain/dysphagia/epistaxis/hemoptysis since last visit. No adverse effects with [...] aggravating triggers, December 09, 2021 SUBJECTIVE Ms. Travis is a 21 year old female who [...] C.diff Reports pain 09/29 No falls/fx/trauma/illness/oral sores/rash/hairloss/jaw pain/dysphagia/epistaxis/hemoptysis. No adverse effects with meds. No other [...] Dactylitis: no H/o precedent/frequent infection(s): as above Enthesopathy/[place]'s/heel/plantar tenderness: no Skin thickening, psoriasis, photosensitivity, purpura: rashes on UEs/LEs when in sun, itching when in hot bath/hives, hives with C.diff Nail changes: no Alpecia, patchy: yes with infection Eye inflammation: no SICCA: no Oral/nasal/genital ulcers: no GI problems-diarrhea/bleeding/IBD/Gluten intolerence/Dysphagia: gerd Fatigue: yes, sleeps 7 hr/night [...] COVID-19 original vaccine, age 12+ yr, monovalent ([employer] - PURPLE TOP) 03/16/2021 04/06/2021 Pneumovax no Flu shot no Tetanus yes Last PPD: unsure PAST MEDICAL HISTORY: PMH headaches, s/p wisdom teeth extraction, s/p mole back removed PAST SURGICAL HISTORY: s/p wisdom teeth extraction, s/p mole back removed FAMILY HISTORY: mother-healthy;father- osteoarthritis;sister- sick frequently; 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 WSR [...] (115 lb) LMP 01/30/2024 (Approximate) BMI 19.74 kg/m? General Appearance: WD/WN, NAD. Appropriate grooming. Very [...] EXTREMITIES: Adequate pulses b/l UE ; No clubbing,discoloration,sclerodactyly, periungual erythema, digital ulcers, nail pitting, edema, [...] Z79.899 Long-term use of high-risk medication Ms. 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 NO swelling. [...] recurrent infection care, avoid triggers, see METAL PRECISION MACHINE ASSEMBLER, start prn heat/ice/otc arthritis creams, low impact [...] touching your toes, sit-ups, using row machine retirement pain recommendations per primary care provider/pain clinic [...] than 50% of time spent via video AND audio (virtual) or phone or face to face with patient, in consultation, and in addition to Counseling and Coordination of Care, explanation of diagnosis, and planning of further management; I spent a total of 30 minutes on the date of the service which included preparing to talk with the patient, video AND audio (virtual) or phone or [id number] patient care, completing clinical documentation, obtaining and/or [...] had the pleasure of seeing your patient, Rosa Travis. I have enclosed a copy of my [...] by letter/electronic shared medical records. cc Gabino Owne MD Answers submitted by the patient for [...] Workers' Compensation? No Do you need an spanish interpreter? No [facility] PROMIS CAT V2.0-PHYSICAL FUNCTION-28 DAYS [...] body? Without ANY difficulty Bend down to berry picker clothing from the floor? Without ANY difficulty [...] help my provider understand my health Agree ANA Observed: 07/15/2024 12:00 AM Status: COMPLETED Source: [facility] Telephone (RIOS) ROSA ALONZO ([id number]) 2000 F Date Time Provider Department 07/15/24 NAE IBARRA During your visit today, we recorded the following information about you: Nae Ibarra MD 07/15/2024 6:42 PM Signed Please Call patient if MyChart note not read to review results/released to My Chart if tests completed at [facility]: normal labs. Take over the counter vitamin D 4972-2273 International Units daily with food. Happy to further review and discuss at follow up visit. Thank you. 07/15/24 normal vitamin D 39.8, vitamin b12-841; Megan Thompson LPN 07/17/2024 10:41 AM Signed Left [...] high-risk medication [Z79.899] 07/15/2024 Encounter Status:Closed by MEGAN THOMPSON on 07/17/24 CNPN Observed: 07/03/2024 12:00 AM Status: COMPLETED Source: [facility] Telephone ([facility]) ROSA ALONZO ([id number]) 2000 F Date Time Provider Department 07/03/24 JAY THOMPSON [facility] During your visit today, we recorded the following information about you: Gail Oropeza 07/03/2024 9:27 AM Addendum BLOCK CELIAC PLEXUS WITH C-ARM needs rescheduled. Please reach out to her to reschedule this. Shu Wilkins 07/07/2024 2:25 PM Signed BLOCK CELIAC PLEXUS WITH C-ARM ROSA ALONZO [id number] DESMOND HUFFMAN 07/21 -THINNERS -DM Patient was made aware that the ASC will call the day prior to scheduled procedure between the hours of 12 and 4 pm to advise patient of arrival time the day of procedure. Patient was advised that they will require a construction driver on the day of their procedure, [...] Dr. Huffman from 07/04 to 07/21 in [place] per patient request. Shu Wilkins 07/08/2024 9:12 [...] Reason for Visit: Appointment [186] Schedule Injection [8978] Prescriptions as of 07/08/2024 - gabapentin (NEURONTIN) [...] Encounter Status:Closed by GAIL OROPEZA on 07/03/24 ANA Observed: 06/23/2024 12:00 AM Status: COMPLETED Source: [facility] Telephone ([place]) ROSA ALONZO ([id number]) 2000 F Date Time Provider Department 06/23/24 [place]O HUFFMAN [place] During your visit today, we recorded the [...] Encounter Status:Closed by BONNY JOYNER on 06/23/24 CNPN Observed: 05/14/2024 12:00 AM Status: COMPLETED Source: [facility] Telephone ([place]) ROSA ALONZO ([id number]) 2000 F Date Time Provider Department 05/14/24 [...] Encounter Status:Closed by SHU WILKINS on 05/14/24 CNPN Observed: 05/14/2024 12:00 AM Status: COMPLETED Source: [facility] Telephone ([place]) ROSA ALONZO ([id number]) 2000 F Date Time Provider Department 05/14/24 SANTIAGO HUFFMAN During your visit today, we recorded the following information about you: Shu Wilkins 05/14/2024 1:48 PM Signed diagnostic celiac plexus blockade CLINTON, ROSA [id number] DESMOND HUFFMAN 07/04 -THINNERS -DM Patient was made aware that the ASC will call the day prior to scheduled procedure between the hours of 12 and 4 pm to advise patient of arrival time the day of procedure. 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 [facility] Specialists: FRANCISCO Transcribe Date/Time: Jan 30 2024 2:09P Dictated by : JOSELUIS MORA MD This examination was interpreted and the report reviewed and electronically signed by: JOSELUIS MORA MD on Jan 30 2024 2:10PM EST Results-Findings * * *Final Report* * * DATE OF EXAM: Jan 30 2024 1:51PM [facility] 0017 - [place] GASTRIC EMPTYING SOLID / [...] any questions regarding this interpretation, please call [phone]. If you are unable to reach us at the number above, please feel free to contact [facility] at [phone]. Results-Findings * * *Final Report* * * [...] fluid collection. Bones/Soft Tissues: No significant finding. Cuff Slitter (topogram) images: No additional findings. Result History CTA ABD/PEL W IVCON (Order #[id number]) on 07/05/2023 - Order Result History R [...] (110 lb) LMP 01/30/2024 (Approximate) BMI 18.88 kg/m? GENERAL: Well appearing, in no acute distress [...] bentyl prn 3 times/week. Last colonoscopy in [place] and normal. No response to creon Fecal [...] which included: *preparing to see the patient *[id number] patient care *completing clinical documentation *obtaining and/or [...] above. 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 Medications Discontinued During This Encounter Prescriptions - amitriptyline (ELAVIL) 25 mg tablet (Discontinued) Reported on 04/30/2024 - pantoprazole DR (PROTONIX) 40 mg tablet (Discontinued) Reported on 04/30/2024 Encounter Status:Closed by ZENON PRETTY on 05/13/24 PROGRESS Observed: 04/30/2024 10:40 AM Status: COMPLETED Source: [facility] HNO ID: [id number] Author: ZENON PRETTY MD Service: ? Author [...] which lowers the sensitivity of the study. [facility] Specialists: PSCB Transcribe Date/Time: Jan 30 2024 2:09P Dictated by : JOSELUIS MORA MD This examination was interpreted and the report reviewed and electronically signed by: JOSELUIS MORA MD on Jan 30 2024 2:10PM EST Results-Findings * * *Final Report* * * DATE OF EXAM: Jan 30 2024 1:51PM [facility] 0017 - NM GASTRIC EMPTYING SOLID / [...] any questions regarding this interpretation, please call [phone]. If you are unable to reach us at the number above, please feel free to contact [facility] at [phone]. Results-Findings * * *Final Report* * * DATE OF EXAM: Jul 05 2023 11:20AM [facility] 0311 - CTA ABD/PELV W IVCON / [...] fluid collection. Bones/Soft Tissues: No significant finding. Cuff Slitter (topogram) images: No additional findings. Result History CTA ABD/PEL W IVCON (Order #[id number]) on 07/05/2023 - Order Result History R [...] (110 lb) LMP 01/30/2024 (Approximate) BMI 18.88 kg/m? GENERAL: Well appearing, in no acute distress [...] bentyl prn 3 times/week. Last colonoscopy in [place] and normal. No response to creon Fecal [...] which included: *preparing to see the patient *[id number] patient care *completing clinical documentation *obtaining and/or [...] above. Zenon Pretty MD April 30, 2024 DIORN Observed: 04/24/2024 12:00 AM Status: COMPLETED Source: [facility] Telephone (LENA) ROSA ALONZO ([id number]) 2000 F Date Time Provider Department 04/24/24 WILLY MENON During your visit today, we recorded the following information about you: Gisela Carvalho RN 04/24/2024 3:00 PM Signed Pt of Dr. Koenig. Pt is scheduled with Dr. Menon for f/u OV 05/07/2024 (made on 12/12/2023). No need for f/u OV with Dr. Menon. Continue f/u with Dr. Koenig as well as Dr. Ambriz (gen surg ). Attempted to call pt, no answer. Left detailed voice msg that OV with be cancelled. Instructed to call back with any questions. Gisela Carvalho RN Allergies As of Date: 04/24/2024 Noted Allergy Reaction METRONIDAZOLE 09/07/2020 1 - Mental Status Change 6 - Diarrhea 8 - GI Upset 4 - Hives 14 - Other: See Comments 2 - Rash 12 - Shortness of Breath 16 - Unknown 11 - Vomiting Date Reviewed: 02/26/2024 Reviewed by: Eva Barillas MA - Fully Assessed Reason for Visit: [...] Palpitations [R00.2] 11/15/2023 Encounter Status:Closed by GISELA CARVALHO on 04/24/24 ALLERGIES DATE TYPE / CODE NAME / CODE REACTION SEVERITY SOURCE 07/08/2024 Drug Allergy/4160 35713(SNOMED CT) No Known Allergies/[id number]( RXNORM) Unknown [facility] 07/08/2024 Drug Allergy/4160 81988(SNOMED CT) vancomycin/[id number] (RXNORM) Rash Unknown [facility] 07/31/2022 DRUG INGREDI/4195 65567(SNOMED CT) METRONIDAZOLE Anxiety~Diarrhe a~Dizziness~[place]arson O~Palpitations~ Rash~Sob [facility] 09/07/2020 DRUG INGREDI/4195 35361(SNOMED CT) METRONIDAZOLE Mental Chg High [facility] ENCOUNTERS ADMIT/DISCHARGE ACCOUNT NUMBER ADMITTING ENCOUNTER CLASS LOCATION SOURCE 03/24/2025/03/24/20 [id number] Ambulatory Building:NOM S BCP OB [facility] 09/03/2024/09/03/19 [id number] [facility] 07/28/2024 [id number] [address] Buildin 0 [facility] 07/24/2024/07/24/19 [id number] [facility] 07/15/2024/07/15/20 [id number] [facility] 07/15/2024/07/15/20 [id number] [facility]/2024/07/03/20 24 [id number] Ambulatory Building:NOM S BCP OB [facility] 07/01/2024/07/01/20 [id number] Ambulatory Building:NOM S SWSDERM [facility] 04/30/2024/04/30/20 [id number] [facility] PAYERS ENCOUNTER GUARANTOR PAYER SUBSCRIBER SOURCE 03/24/2025 ROSA Watkins [place] [address]Clw: (HP) (WP) Primary [facility]: [id number] Date:2019-02-20 ROSA Watkins AGEEDOB: [id number] [place] [address] [facility] 09/03/2024 Primary Insuranc e:BLUE ACCESS PPOPolicy Number: [id number] Date:7739-30-61Xwma Name:Danisha PONCE: [id number] [place] [address] [facility] 07/28/2024 Primary Insurance[facility] Number: [id number] Date:2022-07-23 ANA PONCE: [id number] [place] [address] [facility] 07/24/2024 Rosa Watkins [id number] [place] [address]Ees: (HP) Primary Insurance:[facility] Number: [id number] Date:2024-07-24 Ana Ponce: [id number] [address] [address]Rld: () [facility] 07/24/2024 Secondary Insurance:Self PayPolicy Number: Effective Date:2024-07-24 [facility] Primary Insuranc e:BLUE ACCESS PPOPolicy Number: [id number] Date:4429-60-81Jcgj Name:Danisha PONCE: [id number] [place] [address] [facility] 07/15/2024 Primary Insuranc e:BLUE ACCESS PPOPolicy Number: [id number] Date:9022-25-62Gksg Name:Danisha Moise LISHASHAHABSALINA: [id number] [place] [address] [facility] 07/03/2024 ROSA Roland AGEEDOB: [place] [address]Xco: (HP) (WP) Primary Insurance:BCBSPolicy Number: [id number] Date:2022-07-23 ANA Moise LISHASHAHABB: [id number], [place] [address] [facility] 07/01/2024 ROSA Watkins AGEEDOB: [place] [address]Pdi: (HP) (WP) Primary Insurance:BCBSPolicy Number: [id number] Date:2022-07-23 ANA TRAVISB: [id number] [facility] [address], [place] [address] [facility] 04/30/2024 Primary Insuranc e:BLUE ACCESS PPOPolicy Number: [id number] Date:3957-50-42Jram Name:Danisha Moise LISHASHAHABSALINA: [id number] [address]J[address] [place] [address] [facility]
--- OUTSIDE RECORDS SUMMARY | 2025-04-18 10:03 | XMS_ITS | Encounter Summary ---
Author Organization [facility] Address [address] [place], [place] [id number] Care Team Providers Care Metal Temperer Name Role Phone Gabino Owen MD Primary Care Provider + Analia Holliday CNP Primary Care Provider [phone] Keshia Restrepo MD Primary Care Provider [phone] Source Comments In the event this information is protected by the Federal Confidentiality of Alcohol and Drug AbusePatient Records regulations: The Federal rules restrict any use of the information to criminally investigate or prosecute any alcohol or drug abuse patient.[facility] Encounter Details Date Type Department Care Team (Late st Contact Info) Description 02/20/2023 Get Medical Advice Gastroenterology [address] [place] [address] Leonides Butler Jr., DO [address] [place] [phone] Diarrhea Social History Tobacco Use Types Packs/Day Years Used Date Smoking Tobacco: Former Smokeless Tobacco: Never PHQ-2 Answer Date Recorded PHQ-2 score 1 12/08/2021 Area Deprivation Index Answer Date Dylan rded National Score (1-100), lower number is lower ri sk 80 12/08/2022 State Score (1-10), lower number is lower risk 7 12/08/2022 Data from: https://www.neighborhoodatlas.medicine.[facility].edu/. Last address used for calculation [address] 12/08/2022 Comments No Sex and Gender Information Value Date Recorded Sex Assigned at Female 12/02/2020 10:03 PM EDT Legal Sex Female 4:54 PM EDT Gender Identity Female 12/02/2020 10:03 PM EDT Sexual Orientation Straight 12/02/2020 10 :03 PM EDT documented as of this encounter Miscellaneous Notes * Telephone Encounter - Analia Estevez RN - 02/20/2023 2:14 PM EDT Not sure if you'd be willing to order stool testing based off attached note per pt? Please review and sign, if agreeable. Thank you Analia Estevez RN documented in this encounter Plan of Treatment Not on file documented as of this encounter Results * IGG SUBCLASS 1,2,3,4 (03/16/2023 9:08 AM EDT) IgG Subclass 1 632.6 382.4 - 928.6 mg/dL 03/16/2023 10:57 PM EDT [facility] IgG Subclass 2 334.9 241.8 - 700.3 mg/dL 03/16/2023 10:57 PM EDT [facility] IgG Subclass 3 32.5 21.8 - 176.1 mg/dL 03/16/2023 10:57 PM EDT [facility] IgG Subclass 4 43.3 3.9 - 86.4 mg/dL 03/16/2023 10:57 PM EDT [facility] Blood BLOOD SPECIMEN / Unknown Venipuncture / Unknown 03/16/2023 9:08 AM EDT 03/16/2023 9:08 AM EDT Leonides Butler Jr., DO LABORATORY Final Resu lt [facility] [address] [facility] [address] [place] [address], [place] * (ABNORMAL) LIPID PANEL BASIC (03/16/2023 9:08 AM EDT) Cholesterol, Total 202(H) <200 mg/dL 03/16/2023 5:54 PM EDT [facility] Comment: <200 mg/dL, Desirable 200-239 mg/dL, Borderline high >239 mg/dL, High Triglyceride 56 <150 mg/dL 03/16/2023 5:54 PM EDT [facility] Comment: <150 mg/dL, Normal 150-199 mg/dL, Borderline high 200-499 mg/dL, High >499 mg/dL, Very high HDL Cholesterol 63 >39 mg/dL 5:54 PM EDT [facility] Comment: 40-59 mg/dL, Acceptable >59 mg/dL, High: Negative risk factor for coronary heart disease <40 mg/dL, Low: Positive risk factor for coronary heart disease Non HDL Cholesterol 139(H) <130 mg/dL 03/16/2023 5:54 PM EDT [facility] Comment: <130 mg/dL, Optimal 130-159 mg/dL, Near optimal/above optimal 160-189 mg/dL, Borderline high 190-219 mg/dL, High >219 mg/dL, Very high Secondary prevention optimal non HDL Cholesterol levels are recommended to be <100 mg/dL Fasting Time 12 hrs 03/16/2023 5:54 PM EDT [facility] VLDL Cholesterol 11 <30 mg/dL 03/16/20 5:54 PM EDT [facility] TC:HDL Ratio 3.21 <5.10 03/16/2023 5:54 PM EDT [facility] LDL Cholesterol, Calculated 128(H) <100 mg/dL 03/16/2023 5:54 PM EDT [facility] Comment: <100 mg/dL, Optimal 100-129 mg/dL, Near optimal/above optimal 130-159 mg/dL, Borderline high 160-189 mg/dL, High >189 mg/dL, Very high Secondary prevention optimal LDL Cholesterol levels are recommended to be < 70 mg/dL LDL:HDL Ratio 2.03 <2.54 03/16/2023 5:54 PM EDT [facility] Comment: Reference: 1. National Cholesterol Education Program ATP III Guideline At-A-Glance Quick Desk Reference: National Heart, Lung, and Blood [place]. National Institutes of Health. 2001: NIH Publication No. 01-3305. 2. An International Atherosclerosis Society position paper: global recommendations for the management of dyslipidemia: executive summary, Atherosclerosis. 2014: 232(2):410-413. Blood BLOOD SPECIMEN / Unknown Venipuncture / Unknown 03/16/2023 9:08 AM EDT 03/16/2023 9:08 AM EDT Leonides Butler Jr., DO LABORATORY Final Resu lt Performing Organization Address City/[facility]/ZIP Co de Phone Number [facility] [address] [place] [address], [facility] [address] [place] [address] * SED RATE WESTERGREN (03/16/2023 9:08 AM EDT) Sed Rate, Westergren 2 0 - 20 mm/hr 03/16/2023 2:51 PM EDT [facility] Blood BLOOD SPECIMEN / Unknown Venipuncture / Unknown 03/16/2023 9:08 AM EDT 03/16/2023 9:08 AM EDT Leonides Butler Jr., DO LABORATORY Final Resu lt Performing Organization Address City/[facility]/ZIP Co de Phone Number [facility] [address] [place] [address], * LIPASE BLD (03/16/2023 9:08 AM EDT) Lipase 20 16 - 61 U/L 03/16/2023 5:54 PM EDT [facility] Blood BLOOD SPECIMEN / Unknown Venipuncture / Unknown 03/16/2023 9:08 AM EDT 03/16/2023 9:08 AM EDT Leonides Butler Jr., DO LABORATORY Final Resu lt Performing Organization Address [facility] Co de Phone Number [facility] [address] [place], [place] [id number], [place] * C-REACTIVE PROTEIN (CRP) (03/16/2023 9:08 AM EDT) [facility] CRP <0.3 <0.9 mg/dL 03/16/2023 5:54 PM EDT [facility] Blood BLOOD SPECIMEN / Unknown Venipuncture / Unknown 03/16/2023 9:08 AM EDT 03/16/2023 9:08 AM EDT Leonides Butler Jr., DO LABORATORY Final Resu lt Performing Organization Address City/[facility] Co de Phone Number [facility] [address] [place], [place] [id number], [place] * (ABNORMAL) COMP METABOLIC PANEL (03/16/2023 9:08 AM EDT) [facility] Protein, Total 7.2 6.3 - 8.0 g/dL 03/16/2023 9:38 AM EDT [facility] Albumin 4.9 3.9 - 4.9 g/dL 03/16/2023 9:38 AM EDT [facility] Calcium, Total 9.8 8.5 - 10.2 mg/dL 03/16/2023 9:38 AM EDT [facility] Bilirubin, Total 0.4 0.2 - 1.3 mg/dL 03/16/2023 9:38 AM EDT [facility] Alkaline Phosphatase 55 34 - 123 U/L 03/16/2023 9:38 AM EDT [facility] AST 16 13 - 35 U/L 03/16/2023 9:38 AM [facility] ALT 10 7 - 38 U/L 03/16/2023 9:38 AM [facility] Glucose 102(H) 74 - 99 mg/dL 03/16/2023 9:38 AM [facility] Comment: The [place] Diabetes Association (ADA) provides guidance for cutoff [...] Standards of Medical Care in Diabetes 2016, Italian Diabetes Association. Diabetes Care. 2016.39(Suppl 1). BUN 10 7 - 21 mg/dL 03/16/2023 9:38 AM [facility] Creatinine 0.71 0.58 - 0.96 mg/dL 03/16/2023 9:38 AM [facility] Sodium 142 136 - 144 mmol/L 03/16/2023 9:38 AM [facility] Potassium 4.4 3.7 - 5.1 mmol/L 03/16/2023 9:38 AM [facility] Chloride 105 97 - 105 mmol/L 03/16/2023 9:38 AM [facility] CO2 26 22 - 30 mmol/L 03/16/2023 9:38 AM [facility] Anion Gap 11 9 - 18 mmol/L 03/16/2023 9:38 AM [facility] Estimated Glomerular Filtration Rate 122 >=60 mL/min/1. 73m 03/16/2023 9:38 AM [facility] Comment:Estimated Glomerular Filtration Rate (eGFR) is calculated using the 2020 CKD-EPI creatinine equation. This equation utilizes serum creatinine, sex, and age as parameters. The creatinine assay has traceable calibration to isotope dilution- mass spectrometry. Refer to KDIGO guidelines for clinical interpretation. In patients with unstable renal function, e.g. those with acute kidney injury, the eGFR may not accurately reflect actual GFR. Blood BLOOD SPECIMEN / Unknown Venipuncture / Unknown 03/16/2023 9:08 AM EDT 03/16/2023 9:08 AM EDT us Leonides Butler Jr., DO LABORATORY Final Resu lt [facility] [address] [place] [address] * CBC + DIFF (03/16/2023 9:08 AM EDT) WBC 4.44 3.70 - 11.00 k/uL 03/16/2023 9:14 AM EDT [facility] RBC 4.48 3.90 - 5.20 m/uL 03/16/2023 9:14 AM EDT [facility] Hemoglobin 14.1 11.5 - 15.5 g/dL 03/16/2023 9:14 AM EDT [facility] Hematocrit 41.7 36.0 - 46.0 % 03/16/2023 9:14 AM EDT [facility] MCV 93.1 80.0 - 100.0 fL 03/16/2023 9:14 AM EDT [facility] MCH 31.5 26.0 - 34.0 pg 03/16/2023 9:14 AM EDT [facility] MCHC 33.8 30.5 - 36.0 g/dL 03/16/2023 9:14 AM EDT [facility] RDW-CV 11.6 11.5 - 15.0 % 03/16/2023 9:14 AM EDT [facility] Platelet Count 196 150 - 400 k/uL 03/16/2023 9:14 AM EDT [facility] MPV 10.4 9.0 - 12.7 fL 03/16/2023 9:14 AM EDT [facility] Neutrophils % 35.8 % 03/16/2023 9:14 AM EDT [facility] Abs Neut 1.59 1.45 - 7.50 k/uL 03/16/2023 9:14 AM EDT [facility] Lymphocytes % 48.9 % 03/16/2023 9:14 AM EDT [facility] Abs Lymph 2.17 1.00 - 4.00 k/uL 03/16/2023 9:14 AM EDT [facility] Monocytes % 8.1 % 03/16/2023 9:14 AM EDT [facility] Abs [place] 0.36 <0.87 k/uL 03/16/2023 9:14 AM EDT [facility] Eosinophils % 5.6 % 03/16/2023 9:14 AM EDT [facility] Abs Eosin 0.25 <0.46 k/uL 03/16/2023 9:14 AM EDT [facility] Basophils % 1.4 % 03/16/2023 9:14 AM EDT [facility] Abs Baso 0.06 <0.11 k/uL 03/16/2023 9:14 AM EDT [facility] Immature Granulocytes % 0.2 % 03/16/2023 9:14 AM EDT [facility] Abs Immature Gran <0.03 <0.10 k/uL 023 9:14 AM EDT [facility] NRBC 0.0 /100 WBC 03/16/2023 9:14 AM EDT [facility] Absolute nRBC <0.01 <0.01 k/uL 03/16/2023 9:14 AM EDT [facility] Diff Type Auto 03/16/2023 9:14 AM EDT [facility] Blood BLOOD SPECIMEN / Unknown Venipuncture / Unknown 03/16/2023 9:08 AM EDT 03/16/2023 9:08 AM EDT Leonides Butler Jr., DO LABORATORY Final Resu lt Performing Organization Address City/[facility]/ZIP Co de Phone Number [facility] [address] [place] [address] * PHANI BLOOD (03/16/2023 9:08 AM EDT) PHANI Scr Qual Negative Negative 03/19/2023 11:44 AM EDT [facility] Comment:The qualitative anti nuclear antibody screen test performed using the following antigens: dsDNA, Chromatin, Ribosomal P, SS-A 60, SS-A 52, SS-B, Sm, SmRNP, OPERATIONS OFFICER AFLOAT A, OPERATIONS OFFICER AFLOAT 68, Scl-70, Samina-1, and Centromere B. Methodology: Multiplex flow immunoassay. Blood BLOOD SPECIMEN / Unknown Venipuncture / Unknown 03/16/2023 9:08 AM EDT 03/16/2023 9:08 AM EDT Leonides Butler Jr., DO LABORATORY Final Resu lt Performing Organization Address [facility] Co de Phone Number [facility] [address] [id number], [place] * AMYLASE BLD (03/16/2023 9:08 AM EDT) Amylase 43 30 - 104 U/L 03/16/2023 5:54 PM EDT [facility] Blood BLOOD SPECIMEN / Unknown Venipuncture / Unknown 03/16/2023 9:08 AM EDT 03/16/2023 9:08 AM EDT Leonides Butler Jr., LABORATORY Final Resu lt [facility] [address] [place] [address], [place] documented in this encounter Visit Diagnoses Diagnosis Diarrhea, unspecified type- Primary Generalized abdominal pain Abdominal pain, generalized Chronic pancreatitis, unspecified pancreatitis type (HCC) documented in this encounter Care Teams Metal Temperer Relationship Specialty Start Date End Date Gabino Owen MD PCP - General Family Medicine 11/10/20 06/05/23 Analia Holliday, PATIENT CARE REPRESENTATIVE [address] [place] [address] PCP - General Family Medicine 06/06/23 06/10/24 Keshia Restrepo MD [address] [place] [phone] PCP - General Family Medicine 06/11/24 documented as of this encounter
--- OUTSIDE RECORDS SUMMARY | 2025-04-18 10:03 | XMS_ITS | Encounter Summary ---
Author Organization [facility] Address [address] [place] [address] Care Team Providers Care Biomedical Equipment Specialist Name Role Phone Gabino Owen MD Primary Care Provider + Analia Holliday CNP Primary Care Provider [phone] Keshia Restrepo MD Primary Care Provider [phone] Source Comments In the event this information is protected by the Federal Confidentiality of Alcohol and Drug AbusePatient Records regulations: The Federal rules restrict any use of the information to criminally investigate or prosecute any alcohol or drug abuse patient.[facility] Encounter Details Date Type Department Care Team (Late st Contact Info) Description 05/28/2023 Get Medical Advice [facility] [address] [place] [address] Amy H[place] [facility] [address] [place] [phone] Testing Social History Tobacco Use Types Packs/Day Years Used Date Smoking Tobacco: Former Smokeless Tobacco: Never PHQ-2 Answer Date Recorded PHQ-2 score 1 12/08/2021 Area Deprivation Index Answer Date Dylan rded National Score (1-100), lower number is lower ri sk 80 12/08/2022 State Score (1-10), lower number is lower risk 7 12/08/2022 Data from: https://www.neighborhoodatlas.medicine.[facility].edu/. Last address used for calculation [address] 12/08/2022 Comments No Sex and Gender Information Value Date Recorded Sex Assigned at Female 12/02/2020 10:03 PM EDT Legal Sex Female 4:54 PM EDT Gender Identity Female 12/02/2020 10:03 PM EDT Sexual Orientation Straight 12/02/2020 10 :03 PM EDT documented as of this encounter Plan of Treatment Not on file documented as of this encounter Visit Diagnoses Not on filedocumented in this encounter Care Teams Biomedical Equipment Specialist Relationship Specialty Start Date End Date Gabino Owen MD PCP - General Family Medicine 11/10/20 06/05/23 Analia Holliday, STATION ATTENDANT [address] [place] [phone] PCP - General Family Medicine 06/06/23 06/10/24 Keshia Restrepo MD [address] [place] [phone] PCP - General Family Medicine 06/11/24 documented as of this encounter
--- OUTSIDE RECORDS SUMMARY | 2025-04-18 10:03 | XMS_ITS | Encounter Summary ---
Author Organization [facility] Address [address] [place] [address] Care Team Providers Care Access Spec Name Role Phone Kyree Stinson MD Primary Care Provider + [phone] Kyree Stinson MD Unavailable [phone] Zenon Alberts DO Primary Care Provider [phone] Encounter Details Date Type Department Care Team (Late st Contact Info) Description 01/25/2023 Abstract [facility] O[facility] [address] [place] [phone] Jeremiah Burroughs DO [address] [facility] [address] [place] [id number] Social History Tobacco Use Types Packs/Day Years Used Date Smoking Tobacco: Never Alcohol Use Standard Drinks/Week Comments Not Currently 0 (1 standard drink = 0.6 oz pur e alcohol) 1-2 drinks/monthly or less Comments Unknown Sex and Gender Information Value Date Recorded Sex Assigned at Female 12/12/2022 3:49 PM EDT Legal Sex Female 11:08 PM EDT Gender Identity Female 12/12/2022 3:49 PM EDT Sexual Orientation Not on file documented as of this encounter Plan of Treatment Not on file documented as of this encounter Visit Diagnoses Not on filedocumented in this encounter Care Teams Access Spec Relationship Specialty Start Date End Date Kyree Stinson MD [address] [facility] [address] [place] [address] (Fax) PCP - General Family Medicine 12/13/22 03/09/25 Kyree Stinson MD [address] [address] PCP - [place] 11/20/22 Zenon Alberts DO [address] [place] [phone] PCP - General Internal Medicine 03/10/25 documented as of this encounter
--- OUTSIDE RECORDS SUMMARY | 2025-04-18 10:03 | XMS_ITS | Encounter Summary ---
Author Organization [facility] Address [address] [place] [address] Care Team Providers Care Senior Accountant Analyst Name Role Phone Analia Holliday CNP Primary Care Provider [phone] Keshia Restrepo MD Primary Care Provider [phone] Source Comments In the event this information is protected by the Federal Confidentiality of Alcohol and Drug AbusePatient Records regulations: The Federal rules restrict any use of the information to criminally investigate or prosecute any alcohol or drug abuse patient.[facility] Encounter Details Date Type Department Care Team (Late st Contact Info) Description 07/04/2023 Patient Msg [facility] MAIN WALKER [address] [place] [phone] Amy Hays, RAYMUNDO [address] [place] [phone] Genetics- insurance authorization Social History Tobacco Use Types Packs/Day Years Used Date Smoking Tobacco: Former Smokeless Tobacco: Never Alcohol Use Standard Drinks/Week Comments Not Currently 0 (1 standard drink = 0.6 oz pur e alcohol) PHQ-2 Answer Date Recorded PHQ-2 score 1 12/08/2021 Area Deprivation Index Answer Date Dylan rded National Score (1-100), lower number is lower ri sk 80 12/08/2022 State Score (1-10), lower number is lower risk 7 12/08/2022 Data from: https://www.neighborhoodatlas.medicine.[facility].edu/. Last address used for calculation [address] [...] on filedocumented in this encounter Care Teams Senior Accountant Analyst Relationship Specialty Start Date End Date Analia Holliday GO CART MECHANIC [address] [place] [phone] PCP - General Family Medicine 06/06/23 06/10/24 [place] [address] [place] [phone] PCP - General Family Medicine 06/11/24 documented as of this encounter
--- OUTSIDE RECORDS SUMMARY | 2025-04-18 10:03 | XMS_ITS | Encounter Summary ---
Author Organization [facility] Address [address] [place] [address] Care Team Providers Care Founder & Ceo Name Role Phone Kyree Stinson MD Primary Care Provider [phone] Kyree Stinson MD Unavailable [phone] Zenon Alberts DO Primary Care Provider [phone] Encounter Details Date Type Department Care Team (Late st Contact Info) Description 01/25/2023 Abstract [facility] [address] [place] [phone] Allyssa Chan PA [address] [place], [facility] Social History Tobacco Use Types Packs/Day Years [...] on filedocumented in this encounter Care Teams Founder & Ceo Relationship Specialty Start Date End Date Kyree Stinson MD [address] [place] [address] (Fax) PCP - General Family Medicine 5/24/23 8/18/25 Kyree Stinson MD [address] [address] PCP - [facility] 11/20/22 [place] [address] [place] [phone] PCP - General Internal Medicine 03/10/25 documented as of this encounter
--- OUTSIDE RECORDS SUMMARY | 2025-04-18 10:03 | XMS_ITS | Encounter Summary ---
Author Organization [facility] Address [address] [place] [address] Care Team Providers Care Ice Cream Shop Associate Name Role Phone Kyree Stinson MD Primary Care Provider [phone] Kyree Stinson MD Unavailable [phone] Zenon Alberts DO Primary Care Provider [phone] Encounter Details Date Type Department Care Team (Late st Contact Info) Description 10/02/2024 Orders Only DONNIE Bettencourt OBGYN [address] [place] [address] Domi Baldwin MA [address] [place] [address] Social History Tobacco Use Types Packs/Day Years Used Date Smoking Tobacco: Never Alcohol Use Standard Drinks/Week Comments Yes 2 (1 standard drink = 0.6 oz pur e alcohol) 1-2 drinks/monthly or less Comments No Sex and Gender Information Value Date Recorded Sex Assigned at Female 12/12/2022 3:49 PM EDT Legal Sex Female 11:08 PM EDT Gender Identity Female 12/12/2022 3:49 PM EDT Sexual Orientation Not on file documented as of this encounter Plan of Treatment Not on file documented as of this encounter Procedures Procedure Name Priority Date/Time Associated Diagnosis Comments PAP SMEAR Routine 02/04/2024 12:00 AM EDT documented in this encounter Results * Pap Smear (02/04/2024 12:00 AM EDT) Swab Cervical swab / Unknown Jeremiah Burroughs DO LAB CYTOLOGY ORDERABLES Final Re sult EXTERNAL LAB documented in this encounter Visit Diagnoses Not on filedocumented in this encounter Care Teams Ice Cream Shop Associate Relationship Specialty Start Date End Date Kyree Stinson MD [address] [place] [address] PCP - General Family Medicine 12/13/22 03/09/25 Kyree Stinson MD [address] [place] [address] PCP - [facility] 11/20/22 Zenon Alberts DO [address] [place] [phone] PCP - General Internal Medicine 03/10/25 documented as of this encounter
--- OUTSIDE RECORDS SUMMARY | 2025-04-18 10:03 | XMS_ITS | Encounter Summary ---
Author Organization [facility] Address [address] [place] [address] Care Team Providers Care Senior Database Engineer Name Role Phone Kyree Stinson MD Primary Care Provider [phone] Kyree Stinson MD Unavailable [phone] Zenon Alberts DO Primary Care Provider [phone] Encounter Details Date Type Department Care Team (Late st Contact Info) Description 04/19/2023 Abstract [facility] Family Medicine [address] [place] [address] Kyree Stinson MD [address] [facility] [address] [place] [address] (Fax) Social History Tobacco Use Types Packs/Day Years [...] filedocumented in this encounter Care Teams Senior Database Engineer Relationship Specialty Start Date End Date Kyree Stinson MD [address] [place] [address] (Fax) PCP - General Family Medicine 12/13/22 03/09/25 Kyree Stinson MD [address] [address] [address] - [facility] 11/20/22 Zenon Alberts DO [address] [place] [address] PCP - General Internal Medicine 03/10/25 documented as of this encounter
--- OUTSIDE RECORDS SUMMARY | 2025-04-18 10:03 | XMS_ITS | Encounter Summary ---
Author Organization [facility] Address [address] [place] [address] Care Team Providers Care Vinyl Welder And Fabricator Name Role Phone Kyree Stinson MD Primary Care Provider + [phone] Kyree Stinson MD Unavailable [phone] Zenon Alberts DO Primary Care Provider [phone] Encounter Details Date Type Department Care Team (Late st Contact Info) Description 10/30/2023 Orders Only [facility] 521 Family Medicine [address] [place] [address] Zenon Alberts DO [address] [place] [address] Social History Tobacco Use Types Packs/Day Years [...] Procedure Name Priority Date/Time Associated Diagnosis Comments ECG 12-LEAD Routine 10/29/2023 8:17 AM EDT documented in this encounter Results * ECG 12 lead (10/29/2023 8:17 AM EDT) Zenon Alberts DO ECG ORDERABLES Final Result documented in this encounter Visit Diagnoses Not on filedocumented in this encounter Care Teams Vinyl Welder And Fabricator Relationship Specialty Start Date End Date Kyree Stinson MD [address] [place] [address] PCP - General Family Medicine 12/13/22 03/09/25 Kyree Stinson MD [address] [place] [address] PCP - [place] [facility] 11/20/22 [place] [address] [place] [phone] PCP - General Internal Medicine 03/10/25 documented as of this encounter
--- OUTSIDE RECORDS SUMMARY | 2025-04-18 10:03 | XMS_ITS | Encounter Summary ---
Author Organization [facility] Address [address] [place] [address] Care Team Providers Care Associate Director Of Development Name Role Phone Kyree Stinson MD Primary Care Provider [phone] Kyree Stinson MD Unavailable [phone] Zenon Alberts DO Primary Care Provider [phone] Encounter Details Date Type Department Care Team (Late st Contact Info) Description 10/30/2023 Abstract [facility] Family Medicine [address] [place] [address] Kyree Stinson MD 112 [facility] 100 [place] [address] (Fax) Social History Tobacco Use Types Packs/Day [...] on filedocumented in this encounter Care Teams Associate Director Of Development Relationship Specialty Start Date End Date Kyree Stinson MD [address] [place] [address] (Fax) PCP - General Family Medicine 12/13/22 03/09/25 Kyree Stinson MD [address] [address] PCP - [facility] 11/20/22 Zenon Alberts DO [address] [place] [address] PCP - General Internal Medicine 03/10/25 documented as of this encounter
--- OUTSIDE RECORDS SUMMARY | 2025-04-18 10:03 | XMS_ITS | Encounter Summary ---
Author Organization [facility] Address [address] [place] [address] Care Team Providers Care Partner Cco Name Role Phone Kyree Stinson MD Primary Care Provider [phone] Kyree Stinson MD Unavailable [phone] Zenon Alebrts DO Primary Care Provider [phone] Encounter Details Date Type Department Care Team (Late st Contact Info) Description 02/01/2023 Abstract [facility] O[facility] [address] [facility] [place] [address] Jeremiah Burroughs DO [address] [facility] [address] [place] [id number] Social History Tobacco Use Types Packs/Day Years [...] on filedocumented in this encounter Care Teams Partner Cco Relationship Specialty Start Date End Date Kyree Stinson MD 112 [facility] [address] [place] [address] (Fax) PCP - General Family Medicine 12/13/22 03/09/25 Kyree Stinson MD [address] [address] PCP - [facility] 11/20/22 Zenon Alberts DO [address] [place] [address] PCP - General Internal Medicine 03/10/25 documented as of this encounter
--- OUTSIDE RECORDS SUMMARY | 2025-04-18 10:03 | XMS_ITS | Encounter Summary ---
Author Organization [facility] Address [address] [place], [place] [address] Care Team Providers Care Estate Administrator Name Role Phone Keshia Restrepo MD Primary Care Provider [phone] Source Comments In the event this information is protected by the Federal Confidentiality of Alcohol and Drug AbusePatient Records regulations: The Federal rules restrict any use of the information to criminally investigate or prosecute any alcohol or drug abuse patient.[facility] Reason for Referral * Consult, Test, Treat (Routine) - Authorized Specialty Diagnoses / Procedures Referred By Contac t Referred To Contact Infectious Diseases Diagnoses Clostridium difficile infection Procedures OFFICE/OUTPATIENT [facility] 60 MINUTES Leonides Butler Jr., DO [address] [facility] [address] [place] [address] Phone: tel: fax: [facility] [address] [place] [address] Phone: tel: Referral ID Status Reason Start Date Expiration Date Visits Requested Visits Authorized [id number] Authorized PCP Requested Referral 4 07/14/2025 1 1 Encounter Details Date Type Department Care Team (Late st Contact Info) Description 07/11/2024 Get Medical Advice Gastroenterology [address] [place], [place] [id number] Leonides Butler Jr., DO [address] [place] [address] Cdiff Social History Tobacco Use Types Packs/Day Years Used Date Smoking Tobacco: Never Smokeless Tobacco: Never Alcohol Use Standard Drinks/Week Comments Not Currently 0 (1 standard drink = 0.6 oz pur e alcohol) socially- rare PHQ-2 Answer Date Recorded PHQ-2 score 2 07/14/2024 Area Deprivation Index Answer Date Dylan rded National Score (1-100), lower number is lower ri sk 80 12/08/2022 State Score (1-10), lower number is lower risk 7 12/08/2022 Data from: https://www.neighborhoodatlas.medicine.[facility]/. Last address used for calculation [address] 12/08/2022 Comments No Sex and Gender Information Value Date Recorded Sex Assigned at Female 12/02/2020 10:03 PM EDT Legal Sex Female 4:54 PM EDT Gender Identity Female 12/02/2020 10:03 PM EDT Sexual Orientation Straight 12/02/2020 10 :03 PM EDT documented as of this encounter Miscellaneous Notes * Telephone Encounter - Analia Estevez RN - 07/14/2024 8:43 AM EST It does not appear laboratories do a separate test to the clostridium difficile PCR but would be okwith referral to infectious disease to delve into the issue further. Would recommend treating clostridium difficile with Vanco 125 mg tid for 10 days. Leonides Butler Jr., DO Please let us know if you're agreeable to see infectious disease due to cdiff. Analia Perkins, could you please review and sign orders if agreeable? This is a Dr. Butler pt and he is currently out of the office. Please route back for scheduling purposes. Thank you. Analia Estevez RN * Telephone Encounter - Analia Estevez RN - 07/11/2024 3:[address] Butler, please see attached message per pt. I will ask pt to have the results sent to our office. Please review and advise. Thank you. Analia Estevez RN documented in this encounter Plan of Treatment Scheduled Referrals Name Type Priority Associated Diagnoses Orde r Schedule CONSULT TO INFECTIOUS DISEASES Referral Routine Clostridium difficile infection 1 Occurrences starting 07/14/2024 until 07/14/2025 documented as of this encounter Visit Diagnoses Diagnosis Clostridium difficile infection- Primary Infection due to other anaerobes in conditions classified elsewhere and of unspecified site documented in this encounter Care Teams Estate Administrator Relationship Specialty [place] [address] [place] [phone] PCP - General Family Medicine 06/11/24 documented as of this encounter
--- OUTSIDE RECORDS SUMMARY | 2025-04-18 10:03 | XMS_ITS | Encounter Summary ---
Author Organization [facility] Address [address] [place], [place] [address] Care Team Providers Care Coal Weigher Name Role Phone Gabino Owen MD Primary Care Provider + Analia Holliday CNP Primary Care Provider [phone] Keshia Restrepo MD Primary Care Provider [phone] Source Comments In the event this information is protected by the Federal Confidentiality of Alcohol and Drug AbusePatient Records regulations: The Federal rules restrict any use of the information to criminally investigate or prosecute any alcohol or drug abuse patient.[facility] Encounter Details Date Type Department Care Team (Late st Contact Info) Description 10/25/2022 Patient Msg Functional Medicine [address] [place] [address] Provider, Ccf Appointment Cancellation Request Social History Tobacco Use Types Packs/Day Years Used Date Smoking Tobacco: Former Smokeless Tobacco: Never PHQ-2 Answer Date Recorded PHQ-2 score 1 12/08/2021 Area Deprivation Index Answer Date Dylan rded National Score (1-100), lower number is lower ri sk 86 08/20/2022 State Score (1-10), lower number is lower risk N ot on file 08/20/2022 Data from: https://www.neighborhoodatlas.[facility]/. Last address used for calculation [address] 08/20/2022 Comments No Sex and Gender Information Value [...] on filedocumented in this encounter Care Teams Coal Weigher Relationship Specialty Start Date End Date Gabino Owen MD PCP - General Family Medicine 11/10/20 06/05/23 Analia Holliday, HEALTH AND WELLNESS DIRECTOR [address] [place] [address] PCP - General Family Medicine 06/06/23 06/10/24 Keshia Restrepo MD [address] [place] [address] PCP - General Family Medicine 06/11/24 documented as of this encounter
--- OUTSIDE RECORDS SUMMARY | 2025-04-18 10:03 | XMS_ITS | Encounter Summary ---
Author Organization [facility] Address [address] [place] [address] Care Team Providers Care Fruit Or Nut Picker Name Role Phone Kyree Stinson MD Primary Care Provider [phone] Kyree Stinson MD Unavailable [phone] Zenon Alberts DO Primary Care Provider [phone] Encounter Details Date Type Department Care Team (Late st Contact Info) Description 01/01/2024 Abstract [facility] Family Medicine [address] [facility] 100 [place] [address] Kyree Stinson MD [address] [address] Social History Tobacco Use Types Packs/Day Years [...] on filedocumented in this encounter Care Teams Fruit Or Nut Picker Relationship Specialty Start Date End Date Kyree Stinson MD [address] [address] (Fax) PCP - General Family Medicine 12/13/22 03/09/25 Kyree Stinson MD [address] [address] [facility] 11/20/22 [place] [address] [place] [phone] PCP - General Internal Medicine 03/10/25 documented as of this encounter
--- OUTSIDE RECORDS SUMMARY | 2025-04-18 10:03 | XMS_ITS | Encounter Summary ---
Author Organization [facility] Address [address] [place] [address] Care Team Providers Care Quality Head Name Role Phone Analia Holliday CNP Primary Care Provider [phone] Keshia Retsrepo MD Primary Care Provider [phone] Source Comments In the event this information is protected by the Federal Confidentiality of Alcohol and Drug AbusePatient Records regulations: The Federal rules restrict any use of the information to criminally investigate or prosecute any alcohol or drug abuse patient.[facility] Encounter Details Date Type Department Care Team (Late st Contact Info) Description 03/14/2024 Patient [facility] [address] [place] [place] [id number] Provider, Ccf results Social History Tobacco Use Types Packs/Day Years Used Date Smoking Tobacco: Never Smokeless Tobacco: Never Alcohol Use Standard Drinks/Week Comments Not Currently 0 (1 standard drink = 0.6 oz pur e alcohol) socially- rare PHQ-2 Answer Date Recorded PHQ-2 score 1 12/08/2021 Area Deprivation Index Answer Date Dylan rded National Score (1-100), lower number is lower ri sk 80 12/08/2022 State Score (1-10), lower number is lower risk 7 12/08/2022 Data from: https://www.neighborhoodatlas.[facility].edu/. Last address used for calculation [address] [...] on filedocumented in this encounter Care Teams Quality Head Relationship Specialty Start Date End Date Analia Holliday CNP [address] [place] [address] PCP - General Family Medicine 06/06/23 06/10/24 Keshia Restrepo MD [address] [place] [address] PCP - General Family Medicine 06/11/24 documented as of this encounter
--- OUTSIDE RECORDS SUMMARY | 2025-04-18 10:03 | XMS_ITS | Encounter Summary ---
Author Organization [facility] Address [address] [place] [address] Care Team Providers Care Bundle Clerk Name Role Phone Kyree Stinson MD Primary Care Provider [phone] Kyree Stinson MD Unavailable [phone] Zenon Alberts DO Primary Care Provider Encounter Details Date Type Department Care Team (Late st Contact Info) Description 01/01/2024 Abstract [facility] OBGYN [address] [facility] [place] [address] Jeremiah Burroughs DO [address] [facility] [address] [place] [phone] Social History Tobacco Use Types Packs/Day Years [...] on filedocumented in this encounter Care Teams Bundle Clerk Relationship Specialty Start Date End Date Kyree Stinson MD 112 [facility] [address] [place] [address] (Fax) PCP - General Family Medicine 12/13/22 03/09/25 Kyree Stinson MD [address] [address] PCP - [facility] 11/20/22 Zenon Alberts DO [address] [place] [address] PCP - General Internal Medicine 03/10/25 documented as of this encounter
--- OUTSIDE RECORDS SUMMARY | 2025-04-18 10:03 | XMS_ITS | Encounter Summary ---
Author Organization [facility] Address [address] [place], [place] [address] Care Team Providers Care Meat Cooler Name Role Phone Gabino Owen MD Primary Care Provider + Analia Holliday CNP Primary Care Provider [phone] Keshia Restrepo MD Primary Care Provider [phone] Source Comments In the event this information is protected by the Federal Confidentiality of Alcohol and Drug AbusePatient Records regulations: The Federal rules restrict any use of the information to criminally investigate or prosecute any alcohol or drug abuse patient.[facility] Encounter Details Date Type Department Care Team (Late st Contact Info) Description 07/27/2021 Patient Msg Rheumatology [address] [place], [place] [id number] Meredith Gee MD [address] [place] [address] Request an Appointment Social History Tobacco Use Types Packs/Day Years Used Date Smoking Tobacco: Never Assessed PHQ-2 Answer Date Recorded PHQ-2 score 2 11/12/2020 Area Deprivation Index Answer Date Dylan rded National Score (1-100), lower number is lower ri sk Not on file 11/18/2020 State Score (1-10), lower number is lower risk N ot on file 11/18/2020 Data from: https://www.neighborhoodatlas.medicine.[facility].edu/. Last address used for calculation Not on file 11/18/2020 Comments Unknown Sex and Gender Information Value Date Recorded Sex Assigned at Female 12/02/2020 10:03 PM EDT Legal Sex Female 4:54 PM EDT Gender Identity Female 12/02/2020 10:03 PM EDT Sexual Orientation Straight 12/02/2020 10 :03 PM EDT COVID-19 Exposure Response Date Recorded In the last month, have you been in contact with someone who was confirmed or suspected to have Coronavirus / COVID-19? No / Unsure 07/27/2021 2:33 PM EST documented as of this encounter Plan of Treatment Not on file documented as of this encounter Visit Diagnoses Not on filedocumented in this encounter Care Teams Meat Cooler Relationship Specialty Start Date End Date Gabino Owen MD PCP - General Family Medicine 11/10/20 06/05/23 Analia Holliday TOUCH UP EDGER [address] [place] [address] PCP - General Family Medicine 06/06/23 06/10/24 Keshia Restrepo MD [address] [place] [address] PCP - General Family Medicine 06/11/24 documented as of this encounter
--- OUTSIDE RECORDS SUMMARY | 2025-04-18 10:03 | XMS_ITS | Encounter Summary ---
Author Organization [facility] Address [address] [place], [place] [address] Care Team Providers Care Template Cutter Name Role Phone Gabino Owen MD Primary Care Provider + Analia Holliday CNP Primary Care Provider [phone] Keshia Restrepo MD Primary Care Provider [phone] Source Comments In the event this information is protected by the Federal Confidentiality of Alcohol and Drug AbusePatient Records regulations: The Federal rules restrict any use of the information to criminally investigate or prosecute any alcohol or drug abuse patient.[facility] Encounter Details Date Type Department Care Team (Late st Contact Info) Description 09/13/2022 Patient Msg Functional Medicine [address] [place] [address] Hayley Lopez MD [address] [place], [place] [phone] Appointment Request Social History Tobacco Use Types Packs/Day Years Used Date Smoking Tobacco: Former Smokeless Tobacco: Never PHQ-2 Answer Date Recorded PHQ-2 score 1 12/08/2021 Area Deprivation Index Answer Date Dylan rded National Score (1-100), lower number is lower ri sk 86 08/20/2022 State Score (1-10), lower number is lower risk N ot on file 08/20/2022 Data from: https://www.neighborhoodatlas.medicine.[facility].edu/. Last address used for calculation [address] 08/20/2022 Comments No Sex and Gender Information [...] on filedocumented in this encounter Care Teams Template Cutter Relationship Specialty Start Date End Date Gabino Owen MD PCP - General Family Medicine 11/10/20 06/05/23 Analia Holliday, LINUX CONSULTANT [address] [place] [address] PCP - General Family Medicine 06/06/23 06/10/24 Keshia Restrepo MD [address] [place] [address] PCP - General Family Medicine 06/11/24 documented as of this encounter
--- OUTSIDE RECORDS SUMMARY | 2025-04-18 10:03 | XMS_ITS | Encounter Summary ---
Author Organization [facility] Address [address] [place] [address] Care Team Providers Care Clerk To Justice Name Role Phone Analia Holliday CNP Primary Care Provider [phone] Keshia Restrepo MD Primary Care Provider [phone] Source Comments In the event this information is protected by the Federal Confidentiality of Alcohol and Drug AbusePatient Records regulations: The Federal rules restrict any use of the information to criminally investigate or prosecute any alcohol or drug abuse patient.[facility] Encounter Details Date Type Department Care Team (Late st Contact Info) Description 01/30/2024 Patient [facility] [address] [address] [place] [phone] Provider, Ccf Results Social History Tobacco Use Types Packs/Day Years [...] is lower risk 7 12/08/2022 Data from: https://www.neighborhoodatlas.[facility].edu/. Last address used for calculation [address] [...] on filedocumented in this encounter Care Teams Clerk To Justice Relationship Specialty Start Date End Date Analia Holliday CNP [address] [place] [address] PCP - General Family Medicine 06/06/23 06/10/24 Keshia Restrepo MD [address] [place] [address] PCP - General Family Medicine 06/11/24 documented as of this encounter
--- OUTSIDE RECORDS SUMMARY | 2025-04-18 10:03 | XMS_ITS | Encounter Summary ---
Author Organization [facility] Address [address] [place] [address] Care Team Providers Care Electrical Manufacturing Engineer Name Role Phone Kyree Stinson MD Primary Care Provider [phone] Kyree Stinson MD Unavailable [phone] Zenon Alberts DO Primary Care Provider [phone] Encounter Details Date Type Department Care Team (Late st Contact Info) Description 10/23/2023 Abstract [facility] Family Medicine [address] [place] [address] Marshall Panchal MD [address] [place], [place] [address] Social History Tobacco Use Types Packs/Day Years [...] on filedocumented in this encounter Care Teams Electrical Manufacturing Engineer Relationship Specialty Start Date End Date Kyree Stinson MD [address] [place] [address] PCP - General Family Medicine 12/13/22 03/09/25 Kyree Stinson MD [address] [address] [facility] Zenon Alberts DO [address] [place] [address] PCP - General Internal Medicine 03/10/25 documented as of this encounter
--- OUTSIDE RECORDS SUMMARY | 2025-04-18 10:03 | XMS_ITS | Encounter Summary ---
Author Organization [facility] Address [address] [place] [address] Care Team Providers Care Curtain Mender Name Role Phone Kyree Stinson MD Primary Care Provider [phone] Kyree Stinson MD Unavailable [phone] Zenon Alberts DO Primary Care Provider [phone] Encounter Details Date Type Department Care Team (Late st Contact Info) Description 12/10/2022 Abstract [facility] OBGYN [address] [address] Jeremiah Burroughs DO [address] [facility] [address] [place] [phone] Social History Tobacco Use Types Packs/Day Years [...] PM EDT Sexual Orientation Not on file COVID-19 Exposure Response Date Recorded In the last 10 days, have yo u been in contact with someone who was confirmed or suspected to have Coronavirus/COVID-19? No / Unsure 12/12/2022 3:50 PM EDT documented as of this encounter Plan of Treatment Not on file documented as of this encounter Visit Diagnoses Not on filedocumented in this encounter Care Teams Curtain Mender Relationship Specialty Start Date End Date Kyree Stinson MD [address] [place] [address] PCP - General Family Medicine 12/13/22 03/09/25 Kyree Stinson MD [address] [place] [address] PCP - [place] 11/20/22 Zenon Alberts DO [address] [place] [address] PCP - General Internal Medicine 03/10/25 documented as of this encounter
--- OUTSIDE RECORDS SUMMARY | 2025-04-18 10:03 | XMS_ITS | Encounter Summary ---
Author Organization [facility] Address [address] [place], [place] [address] Care Team Providers Care Pocket Closer Name Role Phone Gabino Owen MD Primary Care Provider + Analia Holliday CNP Primary Care Provider [phone] Keshia Restrepo MD Primary Care Provider [phone] Source Comments In the event this information is protected by the Federal Confidentiality of Alcohol and Drug AbusePatient Records regulations: The Federal rules restrict any use of the information to criminally investigate or prosecute any alcohol or drug abuse patient.[facility] Encounter Details Date Type Department Care Team (Late st Contact Info) Description 10/25/2022 Patient Msg Functional Medicine [address] [address] Provider, Ccf Appointment Cancellation Request Social History Tobacco Use Types Packs/Day Years Used Date Smoking Tobacco: Former Smokeless Tobacco: Never PHQ-2 Answer Date Recorded PHQ-2 score 1 12/08/2021 Area Deprivation Index Answer Date Dylna rded National Score (1-100), lower number is lower ri sk 86 08/20/2022 State Score (1-10), lower number is lower risk N ot on file 08/20/2022 Data from: https://www.neighborhoodatlas.[facility]/. Last address used for calculation [address] [...] on filedocumented in this encounter Care Teams Pocket Closer Relationship Specialty Start Date End Date Gabino Owen MD PCP - General Family Medicine 11/10/20 06/05/23 Analia Holliday, AWNING HANGER [address] [place] [address] PCP - General Family Medicine 06/06/23 06/10/24 Keshia Restrepo MD [address] [place] [address] PCP - General Family Medicine 06/11/24 documented as of this encounter
--- OUTSIDE RECORDS SUMMARY | 2025-04-18 10:03 | XMS_ITS | Encounter Summary ---
Author Organization [facility] Address [address] [place] [address] Care Team Providers Care Roto Gravure Press Operator Name Role Phone Gabino Owen MD Primary Care Provider + Analia Holliday CNP Primary Care Provider [phone] Keshia Restrepo MD Primary Care Provider [phone] Source Comments In the event this information is protected by the Federal Confidentiality of Alcohol and Drug AbusePatient Records regulations: The Federal rules restrict any use of the information to criminally investigate or prosecute any alcohol or drug abuse patient.[facility] Encounter Details Date Type Department Care Team (Late st Contact Info) Description 12/03/2020 Get Medical Advice Neurology [address] [place] [address] Kristen Naqvi DO [address] [place] [address] RE: Test Result Question Social History Tobacco Use Types Packs/Day Years Used Date Smoking Tobacco: Never Assessed PHQ-2 Answer Date Recorded PHQ-2 score 2 11/12/2020 Area Deprivation Index Answer Date Dylan rded National Score (1-100), lower number is lower ri sk Not on file 11/18/2020 State Score (1-10), lower number is lower risk N ot on file 11/18/2020 Data from: https://www.neighborhoodatlas.medicine.[facility].edu/. Last address used for calculation Not on [...] on filedocumented in this encounter Care Teams Roto Gravure Press Operator Relationship Specialty Start Date End Date Gabino Owen MD PCP - General Family Medicine 11/10/20 06/05/23 Analia Holliday EXEC. CREATIVE DIRECTOR [address] [place] [phone] PCP - General Family Medicine 06/06/23 06/10/24 Keshia Restrepo MD [address] [place] [phone] PCP - General Family Medicine 06/11/24 documented as of this encounter
--- OUTSIDE RECORDS SUMMARY | 2025-04-18 10:03 | XMS_ITS | Clinical Summary ---
Author Organization [facility] Address [address] [place] [address] Care Team Providers Care Pack Out Operator Name Role Phone Zenon Alberts DO Primary Care Provider [phone] Allergies Active Allergy Reactions Criticality Noted Date Comments Metronidazole 12/12/2022 Medications escitalopram (Lexapro) 10 MG tablet Take 5 mg by mouth in the morning. Active dicyclomine (Bentyl) 10 MG capsule Take 10 mg by mouth Daily as needed 4 Active letrozole (Femara) 2.5 MG chemo tabletIndicatio ns:Anovulation Take 1 tablet (2.5 mg total) by mouth Daily for 5 days. 5 tablet 5 03/30/20 25 Discontinue d(Other) letrozole (Femara) 2.5 MG chemo tabletIndicatio ns:Anovulation Take 1 tablet (2.5 mg total) by mouth Daily for 5 days. 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 05/02/2022 Generalized anxiety disorder 05/02/2022 Irritable bowel syndrome with diarrhea Lower abdominal pain 05/02/2022 Nausea 05/02/2022 Underweight 05/02/2022 Cervicalgia 12/09/2021 Chronic fatigue 12/09/2021 Chronic pain of left knee 12/09/2021 Recurrent infections 12/09/2021 Urticaria 12/09/2021 Clostridium difficile colitis 10/28/2021 Encounters Date Type Department Care Team Description 03/30/2025 Telephone [facility] [place] [facility] [address] [place] [address] Luna Laguerre LPN 03/24/2025 1:50 PM EDT Office Visit [facility] [place] [employer] [address] [place] [address] Jeremiah Burroughs DO Encounter for infertility; PCOS (polycystic ovarian syndrome); Abnormal uterine bleeding (AUB) 03/24/2025 Bamboo flowsheet [facility] [address] [place] [address] Jeremiah Burroughs DO 03/17/2025 Travel 02/11/2025 Telephone [facility] [place] [facility] [address] [place] [address] Domi Baldwin MA from Last 3 Months Immunizations Immunization Administration Dates Next Due DTaP 01/27/2004 DTaP, Unspecified 05/21/2000,05/16/1999,03/18/19 99,01/14/1999 HPV, Quadrivalent 05/23/2011,02/07/2011 Hep B, Adolescent or Pediatric 05/16/1999,1998,1998 HiB, unspecified 02/22/2000,05/16/1999, 9,01/14/1999 IPV 01/27/2004 MMR 01/27/2004,02/22/2000 Meningococcal MCV4P 02/07/2011 Pneumococcal Conjugate PCV 7 05/21/2000 Polio, Unspecified 02/22/2000,05/16/1999, 999,01/14/1999 Tdap 02/07/2011 Varicella 05/23/2011,02/07/2011,11/24/1999 Family History Medical History Relation Name Comments No Known Problems Brother Hypertension Father Prostate cancer Father Cancer Maternal Grandfather Cancer Maternal Grandmother Stroke Mother No Known Problems Sister 2 sisters Relation Name Status Comments Brother Father Alive Maternal Grandfather Maternal Grandmother Mother Alive Sister x2 Social History Tobacco Use Types Packs/Day Years Used Date Smoking Tobacco: Never Tobacco Cessation:Counseling Given: Not Answered Alcohol Use Standard Drinks/Week Comments Yes 2 (1 standard drink = 0.6 oz pur e alcohol) 1-2 drinks/monthly or less Comments No Sex and Gender Information Value Date Recorded Sex Assigned at Female 12/12/2022 3:49 PM EDT Legal Sex Female 11:08 PM EDT Gender Identity Female 12/12/2022 3:49 PM EDT Sexual Orientation Not on file Last Filed Vital Signs Vital Sign Reading Time Taken Comments Blood Pressure 102/62 03/24/2025 1:52 PM EDT Pulse - - Temperature - - Respiratory Rate - - Oxygen Saturation - - Inhaled Oxygen Concentration - - Weight 51.3 kg (113 lb) 03/24/2025 1:52 PM EDT Height 162.6 cm (5' 4 ) 03/24/2025 1:52 PM EDT Body Mass Index 19.4 03/24/2025 1:52 PM EDT Plan of Treatment Health Maintenance Due Date Last Done Comments Influenza Vaccine (#1) 2025 Insurance [facility] Care Teams Pack Out Operator Relationship Specialty Start Date End Date Zenon Alberts DO [address] [place] [address] PCP - General Internal Medicine 03/10/25
--- OUTSIDE RECORDS SUMMARY | 2025-04-18 10:03 | XMS_ITS | Encounter Summary ---
Author Organization [facility] Address [address] [facility] [place] [address] Care Team Providers Care Monument Carver Name Role Phone Kyree Stinson MD Primary Care Provider [phone] Kyree Stinson MD Unavailable [phone] Zenon Alberts DO Primary Care Provider [phone] Encounter Details Date Type Department Care Team (Late st Contact Info) Description 04/19/2023 Orders Only [facility] [address] Family Medicine [address] [place] [address] Marshall Panchal MD [address] [place], [place] [phone] Social History Tobacco Use Types Packs/Day Years [...] Procedure Name Priority Date/Time Associated Diagnosis Comments CT ABDOMEN PELVIS W IV CONTRAST Routine 04/18/2023 3:09 PM EDT LIPASE Routine 04/18/2023 2:59 PM EDT HEPATIC FUNCTION PANEL Routine 04/18/2023 2:59 PM EDT BASIC METABOLIC PANEL Routine 04/18/2023 2:59 PM EDT documented in this encounter Results * CT abdomen pelvis w IV contrast (04/18/2023 3:09 PM EDT) Anatomical Region Laterality Modality Body, Pelvis, Abdomen Computed T omography us Marshall aPnchal MD IMG CT PROCEDURES Final Resul t * Hepatic function panel (04/18/2023 2:59 PM EDT) Blood Venous blood specimen / Unknown us Marshall Panchal MD LAB BLOOD ORDERABLES Final Re sult * Basic metabolic panel (04/18/2023 2:59 PM EDT) Blood Venous blood specimen / Unknown us Marshall Panchal MD LAB BLOOD ORDERABLES Final Re sult * Lipase (04/18/2023 2:59 PM EDT) Blood Venous blood specimen / Unknown us Marshall Panchal MD LAB BLOOD ORDERABLES Final Re sult documented in this encounter Visit Diagnoses Not on filedocumented in this encounter Care Teams Monument Carver Relationship Specialty Start Date End Date Kyree Stinson MD [address] [address] PCP - General Family Medicine 12/13/22 03/09/25 Kyree Stinson MD [address] [address] PCP - [place] [employer] 11/20/22 Zenon Alberts DO [address] [place] [phone] PCP - General Internal Medicine 03/10/25 documented as of this encounter
--- OUTSIDE RECORDS SUMMARY | 2025-04-18 10:03 | XMS_ITS | Encounter Summary ---
Author Organization [facility] Address [address] [place] [address] Care Team Providers Care Glass Cleaner Name Role Phone Keshia Restrepo MD Primary Care Provider [phone] Source Comments In the event this information is protected by the Federal Confidentiality of Alcohol and Drug AbusePatient Records regulations: The Federal rules restrict any use of the information to criminally investigate or prosecute any alcohol or drug abuse patient.[facility] Encounter Details Date Type Department Care Team (Late st Contact Info) Description 07/03/2024 Patient Msg Gastroenterology [address] [place], [place] [id number] Leonides Butler Jr., DO [address] [facility] [place] [phone] Appointment Request Social History Tobacco Use Types [...] is lower risk 7 12/08/2022 Data from: https://www.neighborhoodatlas.medicine.[facility].edu/. Last address used for calculation [address] [...] on filedocumented in this encounter Care Teams Glass Cleaner Relationship Specialty Start Date End Date Keshia Restrepo MD [address] [place] [address] PCP - General Family Medicine 06/11/24 documented as of this encounter
--- OUTSIDE RECORDS SUMMARY | 2025-04-18 10:03 | XMS_ITS | Encounter Summary ---
Author Organization [facility] Address [address] [place], [place] [address] Care Team Providers Care Director External Communications Name Role Phone Analia Holliday CNP Primary Care Provider [phone] Keshia Restrepo MD Primary Care Provider [phone] Source Comments In the event this information is protected by the Federal Confidentiality of Alcohol and Drug AbusePatient Records regulations: The Federal rules restrict any use of the information to criminally investigate or prosecute any alcohol or drug abuse patient.[facility] Encounter Details Date Type Department Care Team (Late st Contact Info) Description 12/12/2023 Get Medical Advice Gastroenterology [address] [place] [address] [place] [address] [place] [address] Pain Social History Tobacco Use Types Packs/Day Years [...] is lower risk 7 12/08/2022 Data from: https://www.neighborhoodatlas.medicine.[facility].edu/. Last address used for calculation [address] 12/08/2022 Comments No Sex and Gender Information Value Date Recorded Sex Assigned at Female 12/02/2020 10:03 PM EDT Legal Sex Female 4:54 PM EDT Gender Identity Female 12/02/2020 10:03 PM EDT Sexual Orientation Straight 12/02/2020 10 :03 PM EDT documented as of this encounter Miscellaneous Notes * Telephone Encounter - Joleen Holm - 12/13/2023 9:08 AM EDT Per patient's request this medication was asked to be sent to [facility] in [place]. Can you please resend to that pharmacy. * Telephone Encounter - Analia Estevez RN - 12/12/2023 1:[address] Butler, Please see attached messages regarding follow up. Please review and advise. Analia Estevez RN documented in this encounter Plan of Treatment Not on file documented as of this encounter Visit Diagnoses Not on filedocumented in this encounter Care Teams Director External Communications Relationship Specialty Start Date End Date Analia Holliday CNP [address] [place] [address] PCP - General Family Medicine 06/06/23 06/10/24 Keshia Restrepo MD [address] [facility] [place] [address] PCP - General Family Medicine 06/11/24 documented as of this encounter
--- OUTSIDE RECORDS SUMMARY | 2025-04-18 10:03 | XMS_ITS | Encounter Summary ---
Author Organization [facility] Address [address] [place] [address] Care Team Providers Care Announcer Name Role Phone Kyree Stinson MD Primary Care Provider [phone] Kyree Stinson MD Unavailable [phone] Zenon Alberts DO Primary Care Provider [phone] Encounter Details Date Type Department Care Team (Late st Contact Info) Description 11/02/2023 Abstract [facility] [address] Family Medicine [address] [place] [address] Marshall Panchal MD [address] [place], [place] [phone] Social History Tobacco Use Types Packs/Day Years [...] on filedocumented in this encounter Care Teams Announcer Relationship Specialty Start Date End Date Kyree Stinson MD [address] [place] [address] PCP - General Family Medicine 12/13/22 03/09/25 Kyree Stinson MD [address] [address] [facility] 11/20/22 Zenon Alberts DO [address] [place] [address] PCP - General Internal Medicine 03/10/25 documented as of this encounter
--- OUTSIDE RECORDS SUMMARY | 2025-04-18 10:03 | XMS_ITS | Encounter Summary ---
Author Organization [facility] Address [address] [place] [address] Care Team Providers Care Family Specialist Name Role Phone Kyree Stinson MD Primary Care Provider + [phone] Kyree Stinson MD Unavailable [phone] Zenon Alberts DO Primary Care Provider [phone] Encounter Details Date Type Department Care Team (Late st Contact Info) Description 01/12/2023 Abstract [facility] [address] [facility] [place] [address] Jeremiah Burroughs DO [address] [facility] [address] [place] [phone] Social History Tobacco Use Types Packs/Day Years [...] on filedocumented in this encounter Care Teams Family Specialist Relationship Specialty Start Date End Date Kyree Stinson MD [address] [facility] [address] [place] [address] (Fax) PCP - General Family Medicine 12/13/22 03/09/25 Kyree Stinson MD [address] [address] PCP - [facility] 11/20/22 Zenon Alberts DO [address] [place] [phone] PCP - General Internal Medicine 03/10/25 documented as of this encounter
--- OUTSIDE RECORDS SUMMARY | 2025-04-18 10:03 | XMS_ITS | Encounter Summary ---
Author Organization [facility] Address [address] [place] [address] Care Team Providers Care Geospatial Extractor Analysis Name Role Phone Kryee Stinson MD Primary Care Provider [phone] Kyree Stinson MD Unavailable [phone] Zenon Alberts DO Primary Care Provider [phone] Encounter Details Date Type Department Care Team (Late st Contact Info) Description 01/31/2023 Abstract [facility] [address] [facility] [place] [address] Jeremiah Burroughs DO [address] [facility] [address] [place] [phone] Social History Tobacco Use Types Packs/Day Years [...] on filedocumented in this encounter Care Teams Geospatial Extractor Analysis Relationship Specialty Start Date End Date Kyree Stinson MD 112 [facility] [address] [place] [address] (Fax) PCP - General Family Medicine 12/13/22 03/09/25 Kyree Stinson MD [address] [address] PCP - [place] [facility] 11/20/22 Zenon Alberts DO [address] [place] [phone] PCP - General Internal Medicine 03/10/25 documented as of this encounter
--- OUTSIDE RECORDS SUMMARY | 2025-04-18 10:03 | XMS_ITS | Encounter Summary ---
Author Organization [facility] Address [address] [place], [place] [address] Care Team Providers Care Hand Packager Name Role Phone Gabino Owen MD Primary Care Provider + Analia Holliday CNP Primary Care Provider [phone] Keshia Restrepo MD Primary Care Provider [phone] Source Comments In the event this information is protected by the Federal Confidentiality of Alcohol and Drug AbusePatient Records regulations: The Federal rules restrict any use of the information to criminally investigate or prosecute any alcohol or drug abuse patient.[facility] Encounter Details Date Type Department Care Team (Late st Contact Info) Description 09/19/2022 Patient Msg Functional Medicine [address] [place] [address] Hayley Lopez MD [address] [place], [place] [phone] Appointment Request Social History Tobacco Use Types Packs/Day Years Used Date Smoking Tobacco: Former Smokeless Tobacco: Never PHQ-2 Answer Date Recorded PHQ-2 score 1 12/08/2021 Area Deprivation Index Answer Date Dylan rded National Score (1-100), lower number is lower ri sk 86 08/20/2022 State Score (1-10), lower number is lower risk N ot on file 08/20/2022 Data from: https://www.neighborhoodatlas.medicine.[facility].edu/. Last address used for calculation [address] [...] on filedocumented in this encounter Care Teams Hand Packager Relationship Specialty Start Date End Date Gabino Owen MD PCP - General Family Medicine 11/10/20 06/05/23 Analia Holliday, HEALTH SERVICES ADMINISTRATOR [address] [place] [phone] PCP - General Family Medicine 06/06/23 06/10/24 Keshia Restrepo MD [address] [place] [phone] PCP - General Family Medicine 06/11/24 documented as of this encounter
--- OUTSIDE RECORDS SUMMARY | 2025-04-18 10:03 | XMS_ITS | Encounter Summary ---
Author Organization [facility] Address [address] [place], [place] [address] Care Team Providers Care Director Of Counterintelligence Name Role Phone Analia Holliday CNP Primary Care Provider [phone] Keshia Restrepo MD Primary Care Provider [phone] Source Comments In the event this information is protected by the Federal Confidentiality of Alcohol and Drug AbusePatient Records regulations: The Federal rules restrict any use of the information to criminally investigate or prosecute any alcohol or drug abuse patient.[facility] Encounter Details Date Type Department Care Team (Late st Contact Info) Description 10/28/2023 Get Medical Advice Cardiology [address] [place] [phone] [place] [address] [facility] [place], [place] [phone] Low heart rate Social History Tobacco Use Types Packs/Day Years [...] is lower risk 7 12/08/2022 Data from: https://www.neighborhoodatlas.medicine.[facility].edu/. Last address used for calculation [address] 12/08/2022 Comments No Sex and Gender Information Value Date Recorded Sex Assigned at Female 12/02/2020 10:03 PM EDT Legal Sex Female 4:54 PM EDT Gender Identity Female 12/02/2020 10:03 PM EDT Sexual Orientation Straight 12/02/2020 10 :03 PM EDT documented as of this encounter Miscellaneous Notes * Telephone Encounter - Vero Romero RN - 11/01/2023 9:57 AM EDT Patient calling See message below Same, ongoing symptoms Staying hydrated Concerned Call CELL [phone] Leave Detailed messages * Telephone Encounter - Karla Courtney RN - 10/29/2023 2:23 PM EDT Patient has known sinus arrhythmia and complaints of palpitations, might just be throwing PVCs and device might not be picking these up giving a falsely low HR. Would be beneficial to have an EKG of this time when her HR is low, no records available via care everywhere documented in this encounter Plan of Treatment Not on file documented as of this encounter Visit Diagnoses Not on filedocumented in this encounter Care Teams Director Of Counterintelligence Relationship Specialty Start Date End Date Analia Holliday CNP [address] [facility] [place] [phone] PCP - General Family Medicine 06/06/23 06/10/24 Keshia Restrepo MD [address] [place] [place] [address] PCP - General Family Medicine 06/11/24 documented as of this encounter
--- OUTSIDE RECORDS SUMMARY | 2025-04-18 10:03 | XMS_ITS | Encounter Summary ---
Author Organization [facility] Address [address] [place], [place] [address] Care Team Providers Care Arc Cutter Name Role Phone Gabino Owen MD Primary Care Provider + Analia Holliday CNP Primary Care Provider [phone] Keshia Restrepo MD Primary Care Provider [phone] Source Comments In the event this information is protected by the Federal Confidentiality of Alcohol and Drug AbusePatient Records regulations: The Federal rules restrict any use of the information to criminally investigate or prosecute any alcohol or drug abuse patient.[facility] Encounter Details Date Type Department Care Team (Late st Contact Info) Description 09/13/2022 Patient Msg Functional Medicine [address] [address] Provider, [facility] Functional Medicine Appointment Reschedule Needed Social History Tobacco Use Types Packs/Day Years Used Date Smoking Tobacco: Former Smokeless Tobacco: Never PHQ-2 Answer Date Recorded PHQ-2 score 1 12/08/2021 Area Deprivation Index Answer Date Dylan rded National Score (1-100), lower number is lower ri sk 86 08/20/2022 State Score (1-10), lower number is lower risk N ot on file 08/20/2022 Data from: https://www.neighborhoodatlas.[facility]/. Last address used for calculation [address] [...] on filedocumented in this encounter Care Teams Arc Cutter Relationship Specialty Start Date End Date Gabino Owen MD PCP - General Family Medicine 11/10/20 06/05/23 Analia Holliday, LITERARY WRITER [address] [place] [address] PCP - General Family Medicine 06/06/23 06/10/24 Keshia Restrepo MD [address] [place] [address] PCP - General Family Medicine 06/11/24 documented as of this encounter
--- OUTSIDE RECORDS SUMMARY | 2025-04-18 10:03 | XMS_ITS | Encounter Summary ---
Author Organization [facility] Address [address] [place] [address] Care Team Providers Care Switch Box Installer Name Role Phone Kyree Stinson MD Primary Care Provider [phone] Kyree Stinson MD Unavailable [phone] Zenon Alberts DO Primary Care Provider [phone] Encounter Details Date Type Department Care Team (Late st Contact Info) Description 06/25/2024 Abstract [facility] [address] [facility] [place] [phone] Jeremiah Burroughs DO [address] [facility] [address] [place] [phone] Social History Tobacco Use Types Packs/Day Years [...] on filedocumented in this encounter Care Teams Switch Box Installer Relationship Specialty Start Date End Date Kyree Stinson MD 112 [facility] [address] [place] [address] (Fax) PCP - General Family Medicine 12/13/22 03/09/25 Kyree Stinson MD [address] [address] PCP - [facility] 11/20/22 Zenon Alberts DO [address] [place] [address] PCP - General Internal Medicine 03/10/25 documented as of this encounter
--- OUTSIDE RECORDS SUMMARY | 2025-04-18 10:03 | XMS_ITS | Encounter Summary ---
Author Organization [facility] Address [address] [place], [place] [id number] Care Team Providers Care Skip Hoist Engineer Name Role Phone Gabino Owen MD Primary Care Provider + Analia Holliday CNP Primary Care Provider [phone] Keshia Restrepo MD Primary Care Provider [phone] Source Comments In the event this information is protected by the Federal Confidentiality of Alcohol and Drug AbusePatient Records regulations: The Federal rules restrict any use of the information to criminally investigate or prosecute any alcohol or drug abuse patient.[facility] Encounter Details Date Type Department Care Team (Late st Contact Info) Description 09/12/2022 Patient Msg Functional Medicine [address] [place] [address] Provider, Ccf functional medicine Social History Tobacco Use Types Packs/Day Years Used Date Smoking Tobacco: Former Smokeless Tobacco: Never PHQ-2 Answer Date Recorded PHQ-2 score 1 12/08/2021 Area Deprivation Index Answer Date Dylan rded National Score (1-100), lower number is lower ri sk 86 08/20/2022 State Score (1-10), lower number is lower risk N ot on file 08/20/2022 Data from: https://www.neighborhoodatlas.[facility]/. Last address used for calculation [address] [...] on filedocumented in this encounter Care Teams Skip Hoist Engineer Relationship Specialty Start Date End Date Gabino Owen MD PCP - General Family Medicine 11/10/20 06/05/23 Analia Holliday SUPERVISOR COMPUTER OPERATIONS [address] [place] [address] PCP - General Family Medicine 06/06/23 06/10/24 Keshia Restrepo MD [address] [place] [address] PCP - General Family Medicine 06/11/24 documented as of this encounter
--- OUTSIDE RECORDS SUMMARY | 2025-04-18 10:03 | XMS_ITS | Encounter Summary ---
Author Organization [facility] Address [address] [place] [address] Care Team Providers Care Sample Box Maker Name Role Phone Keshia Restrepo MD Primary Care Provider [phone] Source Comments In the event this information is protected by the Federal Confidentiality of Alcohol and Drug AbusePatient Records regulations: The Federal rules restrict any use of the information to criminally investigate or prosecute any alcohol or drug abuse patient.[facility] Encounter Details Date Type Department Care Team (Late st Contact Info) Description 07/08/2024 Patient Msg Rheumatology [address] [place] [address] Meredith Gee MD [address] [place] [address] Appointment Request Social History Tobacco Use Types [...] is lower risk 7 12/08/2022 Data from: https://www.neighborhoodatlas.[facility].edu/. Last address used for calculation [address] [...] on filedocumented in this encounter Care Teams Sample Box Maker Relationship Specialty Start Date End Date Keshia Restrepo MD [address] [place] [address] PCP - General Family Medicine 06/11/24 documented as of this encounter
--- OUTSIDE RECORDS SUMMARY | 2025-04-18 10:03 | XMS_ITS | Encounter Summary ---
Author Organization [facility] Address [address] [place] [address] Care Team Providers Care Patient Support Assistant Name Role Phone Kyree Stinson MD Primary Care Provider + [phone] Kyree Stinson MD Unavailable [phone] Zenon Alberts DO Primary Care Provider [phone] Encounter Details Date Type Department Care Team (Late st Contact Info) Description 02/06/2023 Abstract [facility] [address] [address] [place] [id number] Jeremiah Burroughs DO [address] [facility] [address] [place] [id number] Social History Tobacco Use Types Packs/Day Years [...] on filedocumented in this encounter Care Teams Patient Support Assistant Relationship Specialty Start Date End Date Kyree Stinson MD [address] [facility] [address] [place] [address] (Fax) PCP - General Family Medicine 12/13/22 03/09/25 Kyree Stinson MD [address] [address] PCP - [place] [employer] 11/20/22 Zenon Alberts DO [address] [place] [address] PCP - General Internal Medicine 03/10/25 documented as of this encounter
--- OUTSIDE RECORDS SUMMARY | 2025-04-18 10:03 | XMS_ITS | Encounter Summary ---
Author Organization [facility] Address [address] [place], [place] [address] Care Team Providers Care Devops Developer Name Role Phone Gabino Owen MD Primary Care Provider + Analia Holliday CNP Primary Care Provider [phone] Keshia Restrepo MD Primary Care Provider [phone] Source Comments In the event this information is protected by the Federal Confidentiality of Alcohol and Drug AbusePatient Records regulations: The Federal rules restrict any use of the information to criminally investigate or prosecute any alcohol or drug abuse patient.[facility] Encounter Details Date Type Department Care Team (Late st Contact Info) Description 10/25/2022 Patient Msg Functional Medicine [address] [address] Provider, Ccf Appointment Cancellation Request Social History Tobacco Use Types Packs/Day Years Used Date Smoking Tobacco: Former Smokeless Tobacco: Never PHQ-2 Answer Date Recorded PHQ-2 score 1 12/08/2021 Area Deprivation Index Answer Date Dylan rded National Score (1-100), lower number is lower ri sk 86 08/20/2022 State Score (1-10), lower number is lower risk N ot on file 08/20/2022 Data from: https://www.neighborhoodatlas.[facility]/. Last address used for calculation [address] [...] on filedocumented in this encounter Care Teams Devops Developer Relationship Specialty Start Date End Date Gabino Owen MD PCP - General Family Medicine 11/10/20 06/05/23 Analia Holliday, IDENTIFICATION CLERK [address] [place] [address] PCP - General Family Medicine 06/06/23 06/10/24 Keshia Restrepo MD [address] [place] [address] PCP - General Family Medicine 06/11/24 documented as of this encounter
--- OUTSIDE RECORDS SUMMARY | 2025-04-18 10:03 | XMS_ITS | Encounter Summary ---
Author Organization [facility] Address [address] [place] [address] Care Team Providers Care Maintenance Journeyman Name Role Phone Kyree Stinson MD Primary Care Provider [phone] Kyree Stinson MD Unavailable [phone] Zenon Alberts DO Primary Care Provider [phone] Encounter Details Date Type Department Care Team (Late st Contact Info) Description 06/25/2024 Abstract [facility] [address] [facility] [place] [phone] Jeremiah Burroughs DO [address] [facility] [address] [place] [phone] Social History Tobacco Use Types Packs/Day Years [...] on filedocumented in this encounter Care Teams Maintenance Journeyman Relationship Specialty Start Date End Date Kyree Stinson MD [address] [facility] [address] [place] [address] (Fax) PCP - General Family Medicine 12/13/22 03/09/25 Kyree Stinson MD [address] [address] PCP - [facility] 11/20/22 Zenon Alberts DO [address] [place] [address] PCP - General Internal Medicine 03/10/25 documented as of this encounter
--- OUTSIDE RECORDS SUMMARY | 2025-04-18 10:03 | XMS_ITS | Encounter Summary ---
Author Organization [facility] Address [address] [place] [address] Care Team Providers Care Building Maintenance Custodian Name Role Phone Kyree Stinson MD Primary Care Provider [phone] Kyree Stinson MD Unavailable [phone] Zenon Alberts DO Primary Care Provider [phone] Encounter Details Date Type Department Care Team (Late st Contact Info) Description 04/30/[address] [facility] 521 Family Medicine [address] [place] [address] Kyree Stinson MD 112 [facility] [address] [place] [address] (Fax) Social History Tobacco Use Types Packs/Day [...] on filedocumented in this encounter Care Teams Building Maintenance Custodian Relationship Specialty Start Date End Date Kyree Stinson MD [address] [place] [address] (Fax) PCP - General Family Medicine 12/13/22 03/09/25 Kyree Stinson MD [address] [address] [facility] 11/20/22 Zenon Alberts DO [address] [place] [address] PCP - General Internal Medicine 03/10/25 documented as of this encounter
--- OUTSIDE RECORDS SUMMARY | 2025-04-18 10:03 | XMS_ITS | Encounter Summary ---
Author Organization [facility] Address [address] [place] [address] Care Team Providers Care Electrochemist Name Role Phone Kyree Stinson MD Primary Care Provider + [phone] Kyree Stinson MD Unavailable [phone] Zenon Alberts DO Primary Care Provider [phone] Encounter Details Date Type Department Care Team (Late st Contact Info) Description 01/31/2024 Abstract [facility] O[facility] [address] [facility] [place] [phone] Jeremiah Burroughs DO [address] [facility] [address] [place] [id number] Social History Tobacco Use Types Packs/Day Years [...] on filedocumented in this encounter Care Teams Electrochemist Relationship Specialty Start Date End Date Kyree Stinson MD [address] [facility] [address] [place] [address] (Fax) PCP - General Family Medicine 12/13/22 03/09/25 Kyree Stinson MD [address] [address] PCP - [facility] 11/20/22 Zenon Alberts DO [address] [place] [address] PCP - General Internal Medicine 03/10/25 documented as of this encounter
--- OUTSIDE RECORDS SUMMARY | 2025-04-18 10:03 | XMS_ITS | Encounter Summary ---
Author Organization [facility] Address [address] [place], [place] [address] Care Team Providers Care Act Tutor Name Role Phone Gabino Owen MD Primary Care Provider + Analia Holliday CNP Primary Care Provider [phone] Keshia Restrepo MD Primary Care Provider [phone] Source Comments In the event this information is protected by the Federal Confidentiality of Alcohol and Drug AbusePatient Records regulations: The Federal rules restrict any use of the information to criminally investigate or prosecute any alcohol or drug abuse patient.[facility] Encounter Details Date Type Department Care Team (Late st Contact Info) Description 10/25/2022 Patient Msg Functional Medicine [address] [address] Provider, Ccf Appointment Cancellation Request Social History Tobacco Use Types Packs/Day Years Used Date Smoking Tobacco: Former Smokeless Tobacco: Never PHQ-2 Answer Date Recorded PHQ-2 score 1 12/08/2021 Area Deprivation Index Answer Date Dylan rded National Score (1-100), lower number is lower ri sk 86 08/20/2022 State Score (1-10), lower number is lower risk N ot on file 08/20/2022 Data from: https://www.neighborhoodatlas.[facility]/. Last address used for calculation [...] on filedocumented in this encounter Care Teams Act Tutor Relationship Specialty Start Date End Date Gabino Owen MD PCP - General Family Medicine 11/10/20 06/05/23 Analia Holliday, HAT AND CAP DRYING ROOM ATTENDANT [address] [place] [address] PCP - General Family Medicine 06/06/23 06/10/24 Keshia Restrepo MD [address] [place] [address] PCP - General Family Medicine 06/11/24 documented as of this encounter
--- OUTSIDE RECORDS SUMMARY | 2025-04-18 10:03 | XMS_ITS | Encounter Summary ---
Author Organization [facility] Address [address] [place], [place] [address] Care Team Providers Care Quality Improvement Coordinator Name Role Phone Gabino Owen MD Primary Care Provider + Analia Holliday CNP Primary Care Provider [phone] Keshia Restrepo MD Primary Care Provider [phone] Source Comments In the event this information is protected by the Federal Confidentiality of Alcohol and Drug AbusePatient Records regulations: The Federal rules restrict any use of the information to criminally investigate or prosecute any alcohol or drug abuse patient.[facility] Encounter Details Date Type Department Care Team (Late st Contact Info) Description 10/05/2021 Patient Msg Rheumatology [address] [place], [place] [id number] Provider, Ccf Please Review Changes in Upcoming Appointment Social History Tobacco Use Types Packs/Day Years Used Date Smoking Tobacco: Never Assessed PHQ-2 Answer Date Recorded PHQ-2 score 2 11/12/2020 Area Deprivation Index Answer Date Dylan rded National Score (1-100), lower number is lower ri sk Not on file 11/18/2020 State Score (1-10), lower number is lower risk N ot on file 11/18/2020 Data from: https://www.neighborhoodatlas.[facility]/. Last address used for calculation Not on [...] filedocumented in this encounter Care Teams Quality Improvement Coordinator Relationship Specialty Start Date End Date Gabino Owen MD PCP - General Family Medicine 11/10/20 06/05/23 Analia Holliday, CASHIER AND WAITER/WAITRESS [address] [place] [address] PCP - General Family Medicine 06/06/23 06/10/24 Keshia Restrepo MD [address] [place] [address] PCP - General Family Medicine 06/11/24 documented as of this encounter
--- OUTSIDE RECORDS SUMMARY | 2025-04-18 10:03 | XMS_ITS | Encounter Summary ---
Author Organization [facility] Address [address] [place] [address] Care Team Providers Care Logistics Supervisor Name Role Phone Analia Holliday CNP Primary Care Provider [phone] Keshia Restrepo MD Primary Care Provider [phone] Source Comments In the event this information is protected by the Federal Confidentiality of Alcohol and Drug AbusePatient Records regulations: The Federal rules restrict any use of the information to criminally investigate or prosecute any alcohol or drug abuse patient.[facility] Encounter Details Date Type Department Care Team (Late st Contact Info) Description 02/11/2024 Patient [facility] [address] [address] [place] [id number] Provider, Ccf results Social History Tobacco Use [...] is lower risk 7 12/08/2022 Data from: https://www.neighborhoodatlas.[facility].edu/. Last address used for calculation [...] on filedocumented in this encounter Care Teams Logistics Supervisor Relationship Specialty Start Date End Date Analia Holliday CNP [address] [place] [address] PCP - General Family Medicine 06/06/23 06/10/24 Keshia Restrepo MD [address] [place] [address] PCP - General Family Medicine 06/11/24 documented as of this encounter
--- OUTSIDE RECORDS SUMMARY | 2025-04-18 10:04 | XMS_ITS | Encounter Summary ---
Author Organization [facility] Address [address] [place] [address] Care Team Providers Care Electrical Appliance Mechanic Name Role Phone Keshia Restrepo MD Primary Care Provider [phone] Source Comments In the event this information is protected by the Federal Confidentiality of Alcohol and Drug AbusePatient Records regulations: The Federal rules restrict any use of the information to criminally investigate or prosecute any alcohol or drug abuse patient.[facility] Reason for Referral * Outpatient Procedure (Routine) - Closed Specialty Diagnoses / Procedures Referred By Contac t Referred To Contact [facility] Diagnoses Generalized abdominal pain Change in bowel habits Procedures COLONOSCOPY DIAGNOSTIC COLONOSCOPY FLX DX W/COLLJ SPEC WHEN PFRMD Leonides Butler Jr., DO [address] [facility] [address] [address] Phone: tel: fax: [facility] [address] [place] [address] Referral ID Status Reason Start Date Expiration Date V isits Requested Visits Authorized [id number] Closed Auto-Generate d Referral 08/21/2024 08/21/2025 1 1 Encounter Details Date Type Department Care Team (Late st Contact Info) Description 08/08/2024 Get Medical Advice Gastroenterology [address] [place], [place] [id number] Leonides Butler Jr., DO [address] [facility] [address] [place] [phone] Colonoscopy Social History Tobacco Use Types Packs/Day Years [...] is lower risk 7 12/08/2022 Data from: https://www.neighborhoodatlas.medicine.[facility]/. Last address used for calculation [address] 12/08/2022 Comments No Sex and Gender Information Value Date Recorded Sex Assigned at Female 12/02/2020 10:03 PM EDT Legal Sex Female 4:54 PM EDT Gender Identity Female 12/02/2020 10:03 PM EDT Sexual Orientation Straight 12/02/2020 10 :03 PM EDT documented as of this encounter Patient Instructions * Patient Instructions* Leonides Butler Jr., DO - 08/21/2024 12:39 PM EST COLONOSCOPY BOWEL PREPARATION INSTRUCTIONS MiraLAX??? Your doctor has scheduled you for a colonoscopy. To have a successful colonoscopy, you must have a clean colon, that is empty. A clean colon allows your doctor to see the entire colon & diagnose issues like polyps or cancer. For doctors, a clean colon is like driving on a lashae day; a dirty colon like driving in a storm. It is very important that you follow these instructions exactly, or your colonoscopy may not be as effective, could be canceled, and you may need to do the bowel prep and colonoscopy again. TRANSPORTATION REQUIREMENTS You are receiving IV sedation. For your safety, a responsible adult escort must accompany you to and from your procedure: Your adult escort MUST be present with you at check-in for your colonoscopy. Your adult escort MUST remain in the endoscopy area until you are discharged. Your adult escort MUST transport you home once you are discharged. You are NOT allowed to operate any form of transportation (i.e. drive a car, bicycle, etc) or leavethe Endoscopy Center ALONE. It is not safe to do so. If you cannot meet these requirements, your procedure will be canceled. MEDICATION REQUIREMENTS For your safety, certain medications will need to be stopped or adjusted before you can have your procedure: BLOOD THINNERS: If you take blood thinners, such as Coumadin (warfarin), Plavix (clopidogrel), Ticlid (ticlopidine hydrochloride), Agrylin (anagrelide), Xarelto (Rivaroxaban), Pradaxa (Dabigatran), Eliquis (Apixaban), or Effient (Prasugrel), contact the physician who is prescribing these medications at least 2 weeks prior to your procedure to discuss any necessary adjustments. DIABETES: If you take medications for diabetes, your dosage may need to be adjusted. If you are being treated for diabetes with insulin, diabetic pills, or other injectable medicationsdo not take your REGULAR dose after midnight on the day of your procedure. If you are taking any other types of insulin such as Lantus, Humalog, NPH (long- acting insulin), or70/30 insulin, take half your normal dose the day before your procedure. DIABETES/WEIGHT MANAGEMENT: If you take medications for weight-loss, your dosage may need to be adjusted Contact the doctor who prescribes this medication for further instructions. If you take medications for weight-loss like semaglutide (Ozempic, Wegovy, Rybelsus), dulaglutide (Trulicity), liraglutide (Victoza, Saxenda), exenatide (Byetta, Bydureon), or lixisenatide (Adylyxin), stop your medication 1 week prior to your procedure. If you take medications like canagliflozin (Invokana), dapagliflozin (Farxiga, Forxiga), empagliflozin (Jardiance), stop your medication 3 days prior to your procedure. If you take ertugliflozin (Steglatro) stop your medication 4 days prior to your procedure. IRON: If you take iron pills, STOP them 1 week BEFORE your procedure, may resume after. OTHER MEDS: May take all other medications (including aspirin, antibiotics, water pills / diureticslike Lasix or Metolozone, blood pressure meds, etc.) at their usual scheduled time with water. DIET REQUIREMENTS The day before your colonoscopy, you may have a clear liquid diet (see below). The day of your colonoscopy, you may continue a clear liquid diet until 3 hours before your colonoscopy. Within 3 hours of your colonoscopy, take only any medications (as above) with a sip of water. Clear Liquid Diet Broth (chicken, beef or vegetable broth or bullion. Just the broth, no solids). Water Coffee or Tea (NO milk or creamer), but sugar and sugar substitutes are allowed. Clear liquids including clear, yellow, green, blue (NO red, NO orange, NO purple) Sodas / soft drinks; Gatorade or other sports drinks Fruit juice (strained; no-pulp); Eros-Aid or flavored drinks Plain Jell-O or other gelatins Popsicles or hard candy Bowel prep can work differently from person to person. ?? Some people's bowels move slowly and they may need different instructions. Please see your doctor in office or virtually for personalized bowel prep instructions if you have: BOWEL PREPARATION (MIRALAX/GATORADE) Split Dosing Bowel Prep: This means drinking your bowel prep in two doses. Split dosing helps cleanyour colon better and makes it less likely that your procedure will be canceled. You will need to purchase the following (no prescriptions are needed): 64 ounces Gatorade, Propel, Crystal Lite or other noncarbonated clear liquid sports drink (NOT red,orange, or purple). Diabetic patients buy sugar-free, e.g. Gatorade G2 4 Dulcolax laxative tablets containing 5mg bisacodyl each (do not buy the stool softener) 8.3 oz MiraLAX (238g) powder or generic polyethylene glycol 3350 (find in laxative aisle) The day before your colonoscopy mix 64 oz of the sports drink with 8.3 oz MiraLAX (238 g) in a pitcher. Stir or shake until MiraLAX completely dissolved. Chill if desired. On the evening before your colonoscopy: 5 PM take 4 Dulcolax laxative tablets with water by mouth. 6 PM drink the first half of the Gatorade/MiraLAX solution Drink one 8-ounce glass every 15 minutes. Six hours before your colonoscopy, drink the second half of the solution. Drink one 8-ounce glass every 15 minutes. You may continue a clear liquid diet until 3 hours before your colonoscopy. Bowel prep can work differently from person to person. Some people's bowels move slowly and they may need different instructions. Please see your doctor in office or virtually for personalized bowel prep instructions if you have: Medical condition that needs special accommodations Had a poor bowel prep results or failed bowel prep attempts in the past. Had difficulty with anesthesia during the procedure. FREQUENTLY ASKED QUESTIONS Q: What if I suffer from constipation? A: Recommend taking extra laxatives to resolve your constipation days prior to entering the bowel prep day. Q: What if have had prior poor preps results in past? A: Contact your physician as you will likely need additional bowel prep instructions. Q: What if I have motility issues like Parkinson's, MS (multiple sclerosis), wheelchair dependent, etc.? or on medications that slow colonic transit times (narcotics, gabapentin, anticholinergic medications etc.) A: Contact your physician as you will likely need extra time and additional laxatives to complete your bowel prep. Q: What if I cannot drink large volume of liquid? A: Start your prep 2-3 hours earlier to allow yourself more time to complete the entire prep. Q: What if I had bariatric surgery? Do I still have to complete the entire prep? A: Yes, gastric bypass surgery involves the stomach & small bowel. You may need to drink smaller amounts, slower (may need more time to complete your bowel prep). Gastric bypass does not alter the length of your colon so you will need to complete the entire bowel prep, it may just take longer time to complete it. Q: What if I am on dialysis? A: Please consult your lime kiln tender prior to scheduling to get instructions pertinent to you. In general, dialysis patients take the Golytely bowel prep and have the procedure same day of their dialysis (colonoscopy in AM, dialysis in PM). Q: How do I know if something is considered as clear liquid diet? A: If you can pour it in a glass and you can see through it, it is considered clear liquid Q: Can I eat nuts, seeds, beans, popcorn, dried fruits, vegetables & fruits that have skin peel? A: No, you will need to not eat these items starting 3 days prior to procedure. Q: Can I take Uber/Lyft/taxi/bus home? A: An adult MUST be present with you at check-in for your colonoscopy and remain in the endoscopy area until you are discharged. You can take Uber home only if this adult escort is with you at check in, remain in the endoscopy area until you are discharged, and takes the Uber with you to home. Q: Can I ???sleep it off?? here and drive myself home? A: No, you must have an adult with you at time of procedure check in, remain in the endoscopy center during your procedure, and drive you home. You cannot drive a vehicle after your procedure the rest of the day. Q: What if I can't finish my bowel prep? A: If you cannot complete your entire bowel prep, there is high likelihood that your colonoscopy will need to be rescheduled due to inadequate prep quality. documented in this encounter Miscellaneous Notes * Telephone Encounter - Analia Estevez RN - 08/21/2024 1:20 PM EST Orders signed per Dr. Butler, Please schedule colonoscopy. Thank you. Analia Estevez RN documented in this encounter Plan of Treatment Not on file documented as of this encounter Results * COLONOSCOPY DIAGNOSTIC (09/03/2024 10:20 AM EST) Anatomical Region Laterality Modality Other 09/03/2024 10:2 0 AM EST [facility] 09/03/2024 10:49 AM EST [facility] Gastrointestinal Endoscopy Patient Name: Rosa White Procedure Date: 09/03/2024 10:20 AM Date of : 2000 Admit Type: Outpatient Age: 23 Gender: Female Note Status: Finalized Attending MD: Leonides Butler Jr, DO, [id number] Procedure: Colonoscopy Indications: Generalized abdominal pain, Diarrhea, Change in bowel habits Providers: Leonides Butler Jr, DO Patient Profile: This is a 23 year old female. Refer to note in patient chart for documentation of history and physical. Last Colonoscopy: 3 years ago. Referring Physician: Leonides Butler Jr, DO (Referring MD) Medicines: Propofol [...] the patient. Procedure Code(s): --- Professional --- 48114, Colonoscopy, flexible; with biopsy, single or multiple Diagnosis Code(s): --- Professional --- R10.84, Generalized abdominal pain R19.7, Diarrhea, unspecified R19.4, Change in bowel habit CPT copyright 2020 [employer]. All rights reserved. The codes documented in this report are preliminary and upon bologna lacer review may be revised to meet current compliance requirements. Attending Participation: I personally performed the entire procedure. MD Leonides Egan Jr, DO 09/03/2024 10:46:48 AM This report has been signed electronically by Leonides Butler Jr, DO Number of Addenda: 0 Note Initiated On: 09/03/2024 10:20 AM Procedure Start: 10:28:48 AM Procedure End: 10:42:27 AM Leonides Butler Jr., DO [facility] Final Re sult documented in this encounter Visit Diagnoses Diagnosis Generalized abdominal pain- Primary Abdominal pain, generalized Change in bowel habits Other symptoms involving digestive system Generalized abdominal pain Abdominal pain, generalized Change in bowel habits Other symptoms involving digestive system documented in this encounter Care Teams Electrical Appliance Mechanic Relationship Specialty Start Date End Date Keshia Restrepo MD [address] [place] [address] PCP - General Family Medicine 06/11/24 documented as of this encounter
--- OUTSIDE RECORDS SUMMARY | 2025-04-18 10:04 | XMS_ITS | Encounter Summary ---
Author Organization [facility] Address [address] [id number] Care Team Providers Care Tiler'S Assistant Name Role Phone Analia Holliday CNP Primary Care Provider [phone] Keshia Restrepo MD Primary Care Provider [phone] Source Comments In the event this information is protected by the Federal Confidentiality of Alcohol and Drug AbusePatient Records regulations: The Federal rules restrict any use of the information to criminally investigate or prosecute any alcohol or drug abuse patient.[facility] Encounter Details Date Type Department Care Team (Late st Contact Info) Description 08/30/2023 Patient [facility] Endoscopy - ENDO [address] [place] [address] Provider, Ccf EGD/EUS instructions Social History Tobacco Use Types Packs/Day Years [...] is lower risk 7 12/08/2022 Data from: https://www.neighborhoodatlas.[facility]/. Last address used for calculation [address] [...] on filedocumented in this encounter Care Teams Tiler'S Assistant Relationship Specialty Start Date End Date Analia Holliday AIRLINE PILOT [address] [place] [phone] PCP - General Family Medicine 06/06/23 06/10/24 Keshia Restrepo MD [address] [place] [phone] PCP - General Family Medicine 06/11/24 documented as of this encounter
--- OUTSIDE RECORDS SUMMARY | 2025-04-18 10:04 | XMS_ITS | Encounter Summary ---
Author Organization [facility] Address [address] [place] [address] Care Team Providers Care Coin Collector Name Role Phone Keshia Restrepo MD Primary Care Provider [phone] Source Comments In the event this information is protected by the Federal Confidentiality of Alcohol and Drug AbusePatient Records regulations: The Federal rules restrict any use of the information to criminally investigate or prosecute any alcohol or drug abuse patient.[facility] Encounter Details Date Type Department Care Team (Late st Contact Info) Description 08/27/2024 GI Preprocedure Call [facility] [place] [address] [place] [address] Leonides Butler Jr., [address] [place] [address] Social History Tobacco Use Types Packs/Day Years [...] is lower risk 7 12/08/2022 Data from: https://www.neighborhoodatlas.medicine.[facility].edu/. Last address used for calculation [address] [...] on filedocumented in this encounter Care Teams Coin Collector Relationship Specialty Start Date End Date Keshia Restrepo MD [address] [place] [phone] PCP - General Family Medicine 06/11/24 documented as of this encounter
--- OUTSIDE RECORDS SUMMARY | 2025-04-18 10:04 | XMS_ITS | Encounter Summary ---
Author Organization [facility] Address [address] [place] [address] Care Team Providers Care Applications Support Engineer Name Role Phone Keshia Restrepo MD Primary Care Provider Source Comments In the event this information is protected by the Federal Confidentiality of Alcohol and Drug AbusePatient Records regulations: The Federal rules restrict any use of the information to criminally investigate or prosecute any alcohol or drug abuse patient.[facility] Encounter Details Date Type Department Care Team (Late st Contact Info) Description 02/03/2025 Patient Msg HOSP MAIN H060 [address] [place] [address] Provider, Ccf Sign up to manage your digestive symptoms in between visits, covered by insurance Social History Tobacco Use Types Packs/Day Years [...] is lower risk 7 12/08/2022 Data from: https://www.neighborhoodatlas.medicine.[facility].edu/. Last address used for calculation [address] [...] on filedocumented in this encounter Care Teams Applications Support Engineer Relationship Specialty Start Date End Date Keshia Restrepo MD [address] [place] [phone] PCP - General Family Medicine 06/11/24 documented as of this encounter
--- OUTSIDE RECORDS SUMMARY | 2025-04-18 10:04 | XMS_ITS | Encounter Summary ---
Author Organization [facility] Address [facility] [place] [address] Care Team Providers Care New Business Clerk Name Role Phone Analia Holliday CNP Primary Care Provider [phone] Keshia Restrepo MD Primary Care Provider [phone] Source Comments In the event this information is protected by the Federal Confidentiality of Alcohol and Drug AbusePatient Records regulations: The Federal rules restrict any use of the information to criminally investigate or prosecute any alcohol or drug abuse patient.[facility] Encounter Details Date Type Department Care Team (Late st Contact Info) Description 08/30/2023 GI Preprocedure Call [facility] Endoscopy - ENDO [address] [place], [place] [phone] [place] [address] [place] [address] Social History Tobacco Use Types Packs/Day Years [...] is lower risk 7 12/08/2022 Data from: https://www.neighborhoodatlas.medicine.[facility].edu/. Last address used for calculation [address] [...] on filedocumented in this encounter Care Teams New Business Clerk Relationship Specialty Start Date End Date Analia Holliday PATTERN STAMPER [address] [place] [phone] PCP - General Family Medicine 06/06/23 06/10/24 Keshia Restrepo MD [address] [place] [phone] PCP - General Family Medicine 06/11/24 documented as of this encounter
--- OUTSIDE RECORDS SUMMARY | 2025-04-18 10:04 | XMS_ITS | Encounter Summary ---
Author Organization [facility] Address [address] [place] [address] Care Team Providers Care Hose Mender Name Role Phone Keshia Restrepo MD Primary Care Provider [phone] Source Comments In the event this information is protected by the Federal Confidentiality of Alcohol and Drug AbusePatient Records regulations: The Federal rules restrict any use of the information to criminally investigate or prosecute any alcohol or drug abuse patient.[facility] Encounter Details Date Type Department Care Team (Late st Contact Info) Description 08/27/2024 Patient Msg Internal Medicine [address] [address] Provider, Cc Reschedule APPT Social History Tobacco Use Types Packs/Day Years [...] is lower risk 7 12/08/2022 Data from: https://www.neighborhoodatlas.medicine.[facility].edu/. Last address used for calculation [address] [...] on filedocumented in this encounter Care Teams Hose Mender Relationship Specialty Start Date End Date Keshia Restrepo MD [address] [place] [address] PCP - General Family Medicine 06/11/24 documented as of this encounter
--- OUTSIDE RECORDS SUMMARY | 2025-04-18 10:04 | XMS_ITS | Encounter Summary ---
Author Organization [facility] Address [address] [place] [address] Care Team Providers Care Hand Roller Name Role Phone Keshia Restrepo MD Primary Care Provider [phone] Source Comments In the event this information is protected by the Federal Confidentiality of Alcohol and Drug AbusePatient Records regulations: The Federal rules restrict any use of the information to criminally investigate or prosecute any alcohol or drug abuse patient.[facility] Encounter Details Date Type Department Care Team (Late st Contact Info) Description 01/20/2025 [place] [address] Provider, Ccf Sign up to manage your [...] is lower risk 7 12/08/2022 Data from: https://www.neighborhoodatlas.medicine.[facility].edu/. Last address used for calculation [address] [place] [address] 12/08/2022 Comments No Sex and Gender Information [...] filedocumented in this encounter Care Teams Hand Roller Relationship Specialty Start Date End Date Keshia Restrepo MD [address] [place] [address] PCP - General Family Medicine 06/11/24 documented as of this encounter
--- OUTSIDE RECORDS SUMMARY | 2025-04-18 10:04 | XMS_ITS | Encounter Summary ---
Author Organization [facility] Address [address] [place], [place] [address] Care Team Providers Care Cigarette Tipper Name Role Phone Gabino Owen MD Primary Care Provider + Analia Holliday CNP Primary Care Provider [phone] Keshia Restrepo MD Primary Care Provider [phone] Source Comments In the event this information is protected by the Federal Confidentiality of Alcohol and Drug AbusePatient Records regulations: The Federal rules restrict any use of the information to criminally investigate or prosecute any alcohol or drug abuse patient.[facility] Encounter Details Date Type Department Care Team (Late st Contact Info) Description 04/25/2023 Get Medical Advice Gastroenterology [address] [place] [address] Leonides Butler Jr., DO [address] [place] [phone] Colitis Social History Tobacco Use Types Packs/Day Years Used Date Smoking Tobacco: Former Smokeless Tobacco: Never PHQ-2 Answer Date Recorded PHQ-2 score 1 12/08/2021 Area Deprivation Index Answer Date Dylan rded National Score (1-100), lower number is lower ri sk 80 12/08/2022 State Score (1-10), lower number is lower risk 7 12/08/2022 Data from: https://www.neighborhoodatlas.medicine.[facility]/. Last address used for calculation [address] 12/08/2022 Comments No Sex and Gender Information Value Date Recorded Sex Assigned at Female 12/02/2020 10:03 PM EDT Legal Sex Female 4:54 PM EDT Gender Identity Female 12/02/2020 10:03 PM EDT Sexual Orientation Straight 12/02/2020 10 :03 PM EDT documented as of this encounter Miscellaneous Notes * Telephone Encounter - Linda Narayanan RN - 04/26/2023 10:32 AM EDT Pt is identified by name and birthdate: Yes Patient states she was seen in [place] ED She was offered ATB, which she refused d/t her HX: C-diff She thinks she made a mistake and thinks she should be on an ATB d/t increased pain Patient is asking you look at scans and make a determination and prescribe what you feel she needs Please advise documented in this encounter Plan of Treatment Not on file documented as of this encounter Procedures Procedure Name Priority Date/Time Associated Diagnosis Comments CLOSTRIDIUM DIFFICILE TOXIN BY PCR Routine 05/01/2023 7:00 AM EDT Colitis NFCT AGENT DETECTION GI Routine 05/01/2023 7:00 AM EDT Colitis LACTOFERRIN, FECAL Routine 05/01/2023 7: 00 AM EDT Colitis IMMUNOASSAY, GIARDIA Routine 05/01/2023 7:00 AM EDT Colitis documented in this encounter Results * CRYPTOSPORIDIUM AND GIARDIA ANTIGENS BY EIA (05/01/2023 7:00 AM EDT) Cryptosporidium Antigen by EIA Negative for Cryptosporidium by EIA. Negative 05/02/2023 8:54 AM EDT [facility] Giardia Antigen by EIA Negative for Giardia lamblia by EIA. Negative 05/02/2023 8:54 AM EDT [facility] Stool Random STOOL SPECIMEN / Unknown Non Blood / Unknown 05/01/2023 7:00 AM EDT 05/01/2023 9:49 AM EDT Leonides Bulter Jr., DO MICROBIOLOGY Final Resu lt Performing Organization Address City/[facility] Co de Phone Number [facility] [address] [place] [address], * FECAL LACTOFERRIN/LEUKOCYTES (05/01/2023 7:00 AM EDT) [facility] Fecal Lactoferrin Negative for lactoferrin, which may indicate the absence of fecal white blood cells Negative 05/02/2023 11:39 AM EDT [facility] Stool Random STOOL SPECIMEN / Unknown Non Blood / Unknown 05/01/2023 7:00 AM EDT 05/01/2023 9:45 AM EDT Leonides Butler Jr., LABORATORY Final Resu lt Performing Organization Address [facility] Co de Phone Number [facility] [address] [place] [address], * ENTERIC BACTERIAL PANEL BY PCR (05/01/2023 7:00 AM EDT) [facility] Shigella/Enteroin vasive E. coli (EIEC) DNA Not detected Not Detected 05/02/2023 12:03 AM EDT [facility] Campylobacter species (C. jejuni/C. coli) DNA Not detected Not Detected 05/02/2023 12:03 AM EDT [facility] Shiga-like toxin producing E. coli (STEC) DNA Not detected Not Detected 05/02/2023 12:03 AM EDT [facility] Salmonella species DNA Not detected Not Detected 05/02/2023 12:03 AM EDT [facility] Stool Random STOOL SPECIMEN / Unknown Non Blood / Unknown 05/01/2023 7:00 AM EDT 05/01/2023 9:47 AM EDT Leonides Butler Jr., DO LABORATORY Final Resu lt Performing Organization Address [facility] Co de Phone Number [facility] [address] [place] [phone], * C. DIFFICILE PCR (05/01/2023 7:00 AM EDT) C. difficile PCR Negative for C. difficile toxin by PCR Negative for C. difficile toxin by PCR [employer] COVID19 05/01/2023 6:21 PM EDT [facility] Stool Random STOOL SPECIMEN / Unknown Non Blood / Unknown 05/01/2023 7:00 AM EDT 05/01/2023 9:44 AM EDT Leonides Butler Jr., DO LABORATORY Final Resu lt Performing Organization Address City/[facility] Co de Phone Number [facility] [address] [place] [phone], documented in this encounter Visit Diagnoses Diagnosis Colitis- Primary Other and unspecified noninfectious gastroenteritis and colitis documented in this encounter Care Teams Cigarette Tipper Relationship Specialty Start Date End Date Gabino Owen MD PCP - General Family Medicine 11/10/20 06/05/23 Analia Holliday, HEAD OF OPERATION AND LOGISTICS [address] [place] [address] PCP - General Family Medicine 06/06/23 06/10/24 Keshia Restrepo MD [address] [place] [phone] PCP - General Family Medicine 06/11/24 documented as of this encounter
--- OUTSIDE RECORDS SUMMARY | 2025-04-18 10:04 | XMS_ITS | Encounter Summary ---
Author Organization [facility] Address [address] [place] [address] Care Team Providers Care Acid Pumper Name Role Phone Analia Holliday CNP Primary Care Provider [phone] Keshia Restrepo MD Primary Care Provider [phone] Source Comments In the event this information is protected by the Federal Confidentiality of Alcohol and Drug AbusePatient Records regulations: The Federal rules restrict any use of the information to criminally investigate or prosecute any alcohol or drug abuse patient.[facility] Encounter Details Date Type Department Care Team (Late st Contact Info) Description 10/19/2023 Patient Msg Internal Medicine [facility] [address] [place] [address] Provider, Ccf Cardiology Appointment. Social History Tobacco Use Types Packs/Day Years [...] is lower risk 7 12/08/2022 Data from: https://www.neighborhoodatlas.[facility]/. Last address used for calculation [...] on filedocumented in this encounter Care Teams Acid Pumper Relationship Specialty Start Date End Date Analia Holliday PAYROLL AND BENEFITS MANAGER [address] [place] [phone] PCP - General Family Medicine 06/06/23 06/10/24 Keshia Restrepo MD [address] [place] [phone] PCP - General Family Medicine 06/11/24 documented as of this encounter
--- OUTSIDE RECORDS SUMMARY | 2025-04-18 10:04 | XMS_ITS | Encounter Summary ---
Author Organization [facility] Address [address] [place], [place] [phone] Care Team Providers Care Marketing Program Manager Name Role Phone Gabino Owen MD Primary Care Provider + Analia Holliday CNP Primary Care Provider [phone] Keshia Restrepo MD Primary Care Provider [phone] Source Comments In the event this information is protected by the Federal Confidentiality of Alcohol and Drug AbusePatient Records regulations: The Federal rules restrict any use of the information to criminally investigate or prosecute any alcohol or drug abuse patient.[facility] Encounter Details Date Type Department Care Team (Late st Contact Info) Description 03/13/2023 Get Medical Advice Gastroenterology [address] [place] [address] Leonides Butler Jr., DO [address] [place] [phone] Pancreas Social History Tobacco Use Types Packs/Day Years Used Date Smoking Tobacco: Former Smokeless Tobacco: Never PHQ-2 Answer Date Recorded PHQ-2 score 1 12/08/2021 Area Deprivation Index Answer Date Dylan rded National Score (1-100), lower number is lower ri sk 80 12/08/2022 State Score (1-10), lower number is lower risk 7 12/08/2022 Data from: https://www.neighborhoodatlas.medicine.[facility].edu/. Last address used for calculation [address] 12/08/2022 Comments No Sex and Gender Information Value Date Recorded Sex Assigned at Female 12/02/2020 10:03 PM EDT Legal Sex Female 4:54 PM EDT Gender Identity Female 12/02/2020 10:03 PM EDT Sexual Orientation Straight 12/02/2020 10 :03 PM EDT documented as of this encounter Miscellaneous Notes * Telephone Encounter - Analia Estevez RN - 03/13/2023 4:44 PM EDT Check CCK HIDA, change Levbid to Librax, and give a course of prednisone 20 mg daily for 14 days. Leonides Butler Jr., DO Pt is aware of the plans. She does report having had a HIDA 2 months ago and EF was about 66% and she will have the results faxed to the office. She will follow the med changes and update us in a few days per mychart or phone. Analia Estevez RN documented in this encounter Plan of Treatment Not on file documented as of this encounter Visit Diagnoses Diagnosis RUQ pain- Primary Abdominal pain, right upper quadrant History of pancreatitis Personal history of other diseases of digestive system Nausea Nausea alone documented in this encounter Care Teams Marketing Program Manager Relationship Specialty Start Date End Date Gabino Owen MD PCP - General Family Medicine 11/10/20 06/05/23 Analia Holliday, ACTIVE DIRECTORY ADMINISTRATOR [address] [place] [address] PCP - General Family Medicine 06/06/23 06/10/24 Keshia Restrepo MD [address] [place] [address] PCP - General Family Medicine 06/11/24 documented as of this encounter
--- OUTSIDE RECORDS SUMMARY | 2025-04-18 10:04 | XMS_ITS | Encounter Summary ---
Author Organization [facility] Address [address] [place] [address] Care Team Providers Care Bit Grinder Name Role Phone Keshia Restrepo MD Primary Care Provider [phone] Source Comments In the event this information is protected by the Federal Confidentiality of Alcohol and Drug AbusePatient Records regulations: The Federal rules restrict any use of the information to criminally investigate or prosecute any alcohol or drug abuse patient.[facility] Encounter Details Date Type Department Care Team (Late st Contact Info) Description 08/21/2024 Patient [facility] Gastroenterology [address] [place] [phone] Provider, Ccf colon prep Social History Tobacco Use Types Packs/Day Years [...] lower risk 7 12/08/2022 Data from: https://www.neighborhoodatlas.medicine.[facility].edu/. Last address used for calculation [address] [facility] 12/08/2022 Comments No Sex and Gender Information [...] on filedocumented in this encounter Care Teams Bit Grinder Relationship Specialty Start Date End Date Keshia Restrepo MD [address] [place] [address] PCP - General Family Medicine 06/11/24 documented as of this encounter
--- OUTSIDE RECORDS SUMMARY | 2025-04-18 10:04 | XMS_ITS | Encounter Summary ---
Author Organization [facility] Address [address] [place] [address] Care Team Providers Care Abstract Clerk Name Role Phone Keshia Restrepo MD Primary Care Provider [phone] Source Comments In the event this information is protected by the Federal Confidentiality of Alcohol and Drug AbusePatient Records regulations: The Federal rules restrict any use of the information to criminally investigate or prosecute any alcohol or drug abuse patient.[facility] Encounter Details Date Type Department Care Team (Late st Contact Info) Description 09/09/2024 Patient [facility] Gastroenterology [address] [address] [phone] Provider, Ccf medication Social History Tobacco Use Types Packs/Day Years [...] is lower risk 7 12/08/2022 Data from: https://www.neighborhoodatlas.medicine.[facility].edu/. Last address used for calculation [address] [facility] 12/08/2022 Comments No Sex and Gender Information [...] on filedocumented in this encounter Care Teams Abstract Clerk Relationship Specialty Start Date End Date Keshia Restrepo MD [address] [place] [address] PCP - General Family Medicine 06/11/24 documented as of this encounter
--- OUTSIDE RECORDS SUMMARY | 2025-04-18 10:04 | XMS_ITS | Encounter Summary ---
Author Organization [facility] Address [address] [place] [address] Care Team Providers Care Price Analyst Name Role Phone Keshia Restrepo MD Primary Care Provider [phone] Source Comments In the event this information is protected by the Federal Confidentiality of Alcohol and Drug AbusePatient Records regulations: The Federal rules restrict any use of the information to criminally investigate or prosecute any alcohol or drug abuse patient.[facility] Encounter Details Date Type Department Care Team (Late st Contact Info) Description 09/05/2024 Patient [facility] [address] [phone] Provider, Ccf results Social History Tobacco Use [...] is lower risk 7 12/08/2022 Data from: https://www.neighborhoodatlas.medicine.[facility].edu/. Last address used for calculation [address] [facility] 12/08/2022 Comments No Sex and [...] on filedocumented in this encounter Care Teams Price Analyst Relationship Specialty Start Date End Date Keshia Restrepo MD [address] [place] [address] PCP - General Family Medicine 06/11/24 documented as of this encounter
--- OUTSIDE RECORDS SUMMARY | 2025-04-18 10:04 | XMS_ITS | Clinical Summary ---
Author Organization [facility] Address [address] [place], [place] [address] Care Team Providers Care Strategic Planning Manager Name Role Phone Keshia Restrepo MD Primary Care Provider [phone] Allergies Active Allergy Reactions Criticality Noted Date Comments Metronidazole Mental Status Change ,Diarrhea,GI Upset,Hives,Other: See Comments,Rash,Shortness of Breath,Unknown,Vomiting High 09/07/2020 Medications escitalopram oxalate (LEXAPRO) 10 mg tablet Take 5 mg by mouth once daily. Active ondansetron (ZOFRAN) 4 mg tablet Take 4 mg by mouth as needed. 09/01/2022 Active gabapentin (NEURONTIN) 100 mg capsuleIndicati ons:Right sided abdominal pain,Neuralgia and neuritis take 1 tab PO qHS x 3 days, then take 1 tab PO BID x 3 days, then take 2 tabs PO BID if tolerated. 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 Palpitations 11/15/2023 Bilateral arm pain 12/08/2022 Chronic bilateral low back pain without sciatica 12/08/2022 Abnormal findings on imaging test 12/08/2022 Photosensitivity 12/08/2022 Cervicalgia 12/09/2021 Chronic pain of left knee 12/09/2021 Chronic left shoulder pain 12/09/2021 Recurrent infections 12/09/2021 Urticaria 12/09/2021 Chronic fatigue 12/09/2021 Encounters Date Type Department Care Team Description 02/03/2025 Patient Msg HOSP MAIN H060 [address] [place] [address] Provider, Ccf Sign up to manage your digestive symptoms in between visits, covered by insurance 01/20/2025 [place] [address] Provider, Ccf Sign up to manage your digestive symptoms in between visits, covered by insurance from Last 3 Months Family History Medical History Relation Comments Heart Father Prostate Cancer Father Stroke Mother Colon Cancer No Family History Relation Status Comments Father Alive Mother Alive Social History Tobacco Use Types Packs/Day Years Used Date Smoking Tobacco: Never Smokeless Tobacco: Never Tobacco Cessation:Counseling Given: Yes Alcohol Use Standard Drinks/Week Comments Not Currently 0 (1 standard drink = 0.6 oz pur e alcohol) socially- rare PHQ-2 Answer Date Recorded PHQ-2 score 2 07/14/2024 Area Deprivation Index Answer Date Dylan rded National Score (1-100), lower number is lower ri sk 80 12/08/2022 State Score (1-10), lower number is lower risk 7 12/08/2022 Data from: https://www.neighborhoodatlas.medicine.[facility].edu/. Last address used for calculation [address] 12/08/2022 Comments No Sex and Gender Information Value Date Recorded Sex Assigned at Female 12/02/2020 10:03 PM EDT Legal Sex Female 4:54 PM EDT Gender Identity Female 12/02/2020 10:03 PM EDT Sexual Orientation Straight 12/02/2020 10 :03 PM EDT Last Filed Vital Signs Vital Sign Reading Time Taken Comments Blood Pressure 102/61 09/03/2024 11:00 AM EST Pulse 67 09/03/2024 11:00 AM EST Temperature 36.9 C (98.4 F) 09/03/2024 10:13 AM EST Respiratory Rate 18 09/03/2024 11:00 AM EST Oxygen Saturation 100% 09/03/2024 11:00 AM EST Inhaled Oxygen Concentration - - Weight 52.2 kg (115 lb) 09/03/2024 10:13 AM EST Height 162.6 cm (5' 4 ) 09/03/2024 10:13 AM EST Body Mass Index 19.74 09/03/2024 10:13 AM EST Plan of Treatment Health Maintenance Due Date Last Done Comments Peds To Adult Transition Ini tial Discussion 2010 HPV Vaccine (3 - 2-dose series) 08/15/2011 1, 02/07/2011 Peds To Adult Transition Carla ual Assessment 2012 Depression Screening 2016 HIV Screening 2016 Cervical Cancer Screening 11/18/2019 DTaP,Tdap,Td Vaccine (7 - Td or Tdap) 02/07/2021 02/07/2011, 01/27/2004, 05/21/2000, Additional history exists Influenza Vaccine (#1) 2025 Hepatitis B Vaccine Completed 05/16/1999, 01/14/1999, 1998 Hepatitis C Screening Completed 12/08/2022 Procedures Procedure Name Priority Date/Time Associated Diagnosis Comments HEPATITIS C ANTIBODY IA WITH CONFIRMATION Routine 12/08/2022 12:39 PM EDT Elevated LFTs from Last 3 Months or Most Recently Relevant to Health Maintenance Results * HEP C AB IA W/CONF SCRN (12/08/2022 12:39 PM EDT) Hep C Antibody IA Negative Negative 12/09/2022 10:13 AM EDT [facility] Comment:The result suggests no evidence of active infection with Hepatitis C virus. Should recent infection be suspected, repeat testing may be considered 4-6 weeks after this draw. Blood BLOOD SPECIMEN / Unknown Venipuncture / Unknown 12/08/2022 12:39 PM EDT 12/08/2022 12:41 PM EDT us Meredith Gee MD LABORATORY Final Result [facility] [address] [facility] [address] [address], from Last 3 Months or Most Recently Relevant to Health Maintenance Insurance BLUE [employer] PPO Care Teams Strategic Planning Manager Relationship Specialty Start Date End Date Keshia Restrepo MD [address] [place] [address] PCP - General Family Medicine 06/11/24
--- OUTSIDE RECORDS SUMMARY | 2025-04-18 10:04 | XMS_ITS | Encounter Summary ---
Author Organization [facility] Address [address] [place] [address] Care Team Providers Care Ios Developer Name Role Phone Keshia Restrepo MD Primary Care Provider [phone] Source Comments In the event this information is protected by the Federal Confidentiality of Alcohol and Drug AbusePatient Records regulations: The Federal rules restrict any use of the information to criminally investigate or prosecute any alcohol or drug abuse patient.[facility] Encounter Details Date Type Department Care Team (Late st Contact Info) Description 08/27/2024 Patient Msg [facility] [address] [facility] [address] [place] [address] Provider, Ccf Colonoscopy Prep Instructions Social History Tobacco Use Types Packs/Day Years [...] lower risk 7 12/08/2022 Data from: https://www.neighborhoodatlas.medicine.[facility].edu/. Last address used for calculation [address] [...] on filedocumented in this encounter Care Teams Ios Developer Relationship Specialty Start Date End Date Keshia Restrepo MD [address] [place] [address] PCP - General Family Medicine 06/11/24 documented as of this encounter
--- OUTSIDE RECORDS SUMMARY | 2025-04-18 10:04 | XMS_ITS | Clinical Summary ---
Author Organization [facility] [facility] [employer] Address [id number] [address] [place] [address] Care Team Providers Care Small Business Director Name Role Phone No Pcp, No Pcp Primary Care Provider Unavailabl e Allergies Active Allergy Reactions Criticality Noted Date Comments Metronidazole Hives High 01/10/2024 Medications * This document contains information received from the source organization and may not represent a complete record from that organization. amitriptyline (ELAVIL) 25 mg tablet Take 1 tablet (25 mg total) by mouth nightly. 4 Active escitalopram (LEXAPRO) 5 mg tablet Take 1 tablet (5 mg total) by mouth in the morning. Active ondansetron ODT (ZOFRAN ODT) 4 mg disintegrating tablet Dissolve 1 tablet (4 mg total) on tongue every 6 (six) hours as needed for vomiting or nausea. 4 Active dicyclomine (BENTYL) 10 mg capsule Take 1 capsule (10 mg total) by mouth daily as needed. Active cholecalciferol, vitamin D3, (VITAMIN D3 ORAL) Take 1 tablet by mouth in the morning. Active Active Problems No known active problems Family History Medical History Relation Name Comments No Known Problems Brother Luis Cancer Father Tonsil Cancer Heart disease Father Prostate cancer Father Stroke Mother No Known Problems Sister 1 Eva No Known Problems Sister 2 Meghana Relation Name Status Comments Brother Luis Alive Father Alive Mother Alive Sister 1 Eva Alive Sister 2 Meghana Alive Social History Tobacco Use Types Packs/Day Years Used Date Smoking Tobacco: Never Smokeless Tobacco: Never Tobacco Cessation:Counseling Given: Not Answered Alcohol Use Standard Drinks/Week Comments Not Currently 0 (1 standard drink = 0.6 oz pur e alcohol) Childcare Answer Date Recorded Childcare Unknown 01/02/2019 Employment Answer Date Recorded Employment Unknown 01/02/2019 Hunger Screening Answer Date Recorded Within the past 12 months we worried whether our food would run out before we got money to buy more. Never True 02/13/2024 Food Insecurity - Inability Not on file 01/21 Purpose - Life Answer Date Recorded Purpose and direction in life Unknown Comments Unknown Sex and Gender Information Value Date Recorded Sex Assigned at Not on file Legal Sex Female 9:09 AM EDT Gender Identity Not on file Sexual Orientation Not on file Last Filed Vital Signs Vital Sign Reading Time Taken Comments Blood Pressure 112/78 02/13/2024 9:24 AM EDT Pulse 75 02/13/2024 9:24 AM EDT Temperature - - Respiratory Rate - - Oxygen Saturation - - Inhaled Oxygen Concentration - - Weight 52.3 kg (115 lb 6.4 oz) 02/13/2024 9:24 A M EDT Height 162.6 cm (5' 4 ) 02/13/2024 9:24 AM EDT Body Mass Index 19.81 02/13/2024 9:24 AM EDT Plan of Treatment Health Maintenance Due Date Last Done Comments Depression Screening 2010 Pap Smear 11/18/2019 DTaP,Tdap and Td Vaccines (7 - Td or Tdap) 02/07/2021 02/07/2011, 01/27/2004, 05/21/2000, Additional history exists Adult BMI Screening 02/12/2025 02/13/2024 Tobacco Screening 02/12/2025 02/13/2024 COVID-19 Vaccine (3 2024-2 6 season) 2025 04/06/2021, 03/16/2021 Influenza Vaccine 03/23/2025 Medical Devices Not on file Insurance [facility] Care Teams Small Business Director Relationship Specialty Start Date End Date No Pcp, [place] [address] PCP - General Family Medicine 02/13/24
--- OUTSIDE RECORDS SUMMARY | 2025-04-18 10:04 | XMS_ITS | Encounter Summary ---
Author Organization [facility] Address [address] [place] [address] Care Team Providers Care Lead Clinical Research Coordinator Name Role Phone Keshia Restrepo MD Primary Care Provider [phone] Source Comments In the event this information is protected by the Federal Confidentiality of Alcohol and Drug AbusePatient Records regulations: The Federal rules restrict any use of the information to criminally investigate or prosecute any alcohol or drug abuse patient.[facility] Reason for Visit * Reason Comments Med Change Request Encounter Details Date Type Department Care Team (Late st Contact Info) Description 10/05/2024 Refill Gastroenterology [address] [place], [place] [id number] Leonides Butler Jr., DO [address] [place] [id number] Med Change Request Social History Tobacco Use Types Packs/Day Years Used Date Smoking Tobacco: Never Smokeless Tobacco: Never Alcohol Use Standard Drinks/Week Comments Not Currently 0 (1 standard drink = 0.6 oz pur e alcohol) socially- rare PHQ-2 Answer Date Recorded PHQ-2 score 2 07/14/2024 Area Deprivation Index Answer Date Dylan rded National Score (1-100), lower number is lower ri 80 12/08/2022 State Score (1-10), lower number is lower risk 7 12/08/2022 Data from: https://www.neighborhoodatlas.medicine.[facility].edu/. Last address used for calculation [address] 12/08/2022 Comments No Sex and Gender Information Value Date Recorded Sex Assigned at Female 12/02/2020 10:03 PM EDT Legal Sex Female 4:54 PM EDT Gender Identity Female 12/02/2020 10:03 PM EDT Sexual Orientation Straight 12/02/2020 10 :03 PM EDT documented as of this encounter Miscellaneous Notes * Telephone Encounter - Santos Celeste MA - 10/06/2024 3:43 PM EDT Patient is requesting a medication refill. Last appointment: 12/28/2023 Next scheduled appointment: Requested Prescriptions Pending Prescriptions Disp Refills colestipol (COLESTID) 1 gram tablet [Pharmacy Med Name: COLESTIPOL HCL 1 GM TABLET] 180 tablet 1 Sig: TAKE 2 TABLETS BY MOUTH EVERY DAY Santos Celeste MA October 06, 2024 3:43 PM documented in this encounter Plan of Treatment Not on file documented as of this encounter Visit Diagnoses Not on filedocumented in this encounter Care Teams Lead Clinical Research Coordinator Relationship Specialty Start Date End Date Keshia Restrepo MD [address] [place] [phone] PCP - General Family Medicine 06/11/24 documented as of this encounter
--- OUTSIDE RECORDS SUMMARY | 2025-04-18 10:04 | XMS_ITS | Encounter Summary ---
Author Organization [facility] Address [address] [place] [address] Care Team Providers Care Forest Management Teacher Name Role Phone Keshia Restrepo MD Primary Care Provider [phone] Source Comments In the event this information is protected by the Federal Confidentiality of Alcohol and Drug AbusePatient Records regulations: The Federal rules restrict any use of the information to criminally investigate or prosecute any alcohol or drug abuse patient.[facility] Encounter Details Date Type Department Care Team (Late st Contact Info) Description 09/02/2024 Patient Msg [facility] [address] [address] Provider, [facility] APPT. CONFIRMATION Social History Tobacco Use Types Packs/Day Years [...] is lower risk 7 12/08/2022 Data from: https://www.neighborhoodatlas.medicine.[facility].edu/. Last address used for calculation [address] [...] on filedocumented in this encounter Care Teams Forest Management Teacher Relationship Specialty Start Date End Date Keshia Restrepo MD [address] [place] [address] PCP - General Family Medicine 06/11/24 documented as of this encounter
--- OUTSIDE RECORDS SUMMARY | 2025-04-18 10:04 | XMS_ITS | Clinical Summary ---
Author Organization [facility] Address [address] [place] [address] Phone Care Team Providers Care Rose Grower Name Role Phone Unavailable Primary Care Provider Unavailabl e Allergies Active Allergy Reactions Criticality Noted Date Comments Metronidazole Hives 04/16/2024 Medications dicyclomine (Bentyl) 10 mg capsule Take 1 capsule (10 mg) by mouth once daily as needed. 4 Active escitalopram (Lexapro) 10 mg tablet Take 0.5 tablets (5 mg) by mouth once daily. 4 Active ondansetron ODT (Zofran-ODT) 4 mg disintegrating tablet Take 1 tablet (4 mg) by mouth every 6 hours if needed. 4 Active Active Problems Problem Noted Date Diagnosed Date Depression 04/16/2024 Social History Tobacco Use Types Packs/Day Years Used Date Smoking Tobacco: Never Smokeless Tobacco: Never Tobacco Cessation:Counseling Given: Not Answered Alcohol Use Standard Drinks/Week Comments Not Currently 0 (1 standard drink = 0.6 oz pur e alcohol) AUDIT-C Answer Date Recorded Q1: How often do you have a drink containing alcohol? Never 02/05/2024 Q2: How many drinks containi ng alcohol do you have on a typical day when you are drinking? Patient does not drink Q3: How often do you have si x or more drinks on one occasion? Never 02/05/2024 PHQ-2 Answer Date Recorded Patient Health Questionnaire-2 Score 0 02/05/2024 Comments No Sex and Gender Information Value Date Recorded Sex Assigned at Female 01/30/2024 9:51 AM EDT Legal Sex Female 8:24 AM EDT Gender Identity Female 01/30/2024 9:51 AM EDT Sexual Orientation Straight 01/30/2024 9: 51 AM EDT Last Filed Vital Signs Vital Sign Reading Time Taken Comments Blood Pressure 98/64 04/16/2024 10:51 AM EDT Pulse 68 04/16/2024 10:51 AM EDT Temperature 36.2 C (97.2 F) 04/16/2024 10:21 AM EDT Respiratory Rate 18 04/16/2024 10:51 AM EDT Oxygen Saturation 100% 04/16/2024 10:51 AM EDT Inhaled Oxygen Concentration - - Weight 52.2 kg (115 lb) 04/16/2024 8:23 AM EDT Height 162.6 cm (5' 4 ) 04/16/2024 8:23 AM EDT Body Mass Index 19.74 04/16/2024 8:23 AM EDT Plan of Treatment Health Maintenance Due Date Last Done Comments HIV Screening 1998 Lipid Panel 1998 HPV Vaccines (3 - 2-dose series) 08/15/2011 05/23/2011, 02/07/2011 Hepatitis C Screening 2016 Cervical Cancer Screening 11/18/2019 HPV/Cotest 11/18/2019 Pap Smear 11/18/2019 DTaP/Tdap/Td Vaccines (7 - Td or Tdap) 02/07/2021 02/07/2011, 01/27/2004, 05/21/2000, Additional history exists Yearly Adult Physical 02/04/2025 02/04/2024, 023 COVID-19 Vaccine ( season) 2025 04/06/2021, 03/16/2021 Influenza Vaccine (#1) 2025 Zoster Vaccines (1 of 2) 2048 011, 02/07/2011, 11/24/1999 Hepatitis B Vaccines Completed 05/16/1999, 01/14/1999, 1998 HIB Vaccines Completed 02/22/2000, 04/23, 03/18/1999, Additional history exists Pneumococcal Vaccine: Pediatrics and At-Risk Adult Patients Aged Out 05/21/2000 No longer eligible based on patient's age to complete this topic IPV Vaccines Completed 01/27/2004, 08/1999, 05/16/1999, Additional history exists MMR Vaccines Completed 01/27/2004, 02/22/2000 Meningococcal Vaccine Aged Out 02/07/2011 No fercho cori eligible based on patient's age to complete this topic Hepatitis A Vaccines Aged Out No long er eligible based on patient's age to complete this topic Rotavirus Vaccines Aged Out No longer eligible based on patient's age to complete this topic Insurance [facility]
[2025-04-18 10:23] LABS: Hematocrit 42.8 % (36.0-48.0); Hemoglobin 14.6 g/dL (12.0-16.0); Immature Granulocytes Abs Auto 0.00 10^3/uL (0.00-0.03); Immature Granulocytes Pct Auto 0.0 % (0.0-0.5); Lymphocytes Absolute Auto 2.5 10^3/uL (1.2-3.8); Mean Corpuscular HGB Conc 34.1 g/dL (29.9-35.2); Mean Corpuscular Hemoglobin 31.8 pg (26.7-34.0); Mean Corpuscular Volume 93.2 fL (81.0-99.0); Platelet Count 207 10^3/uL (150-450); Red Blood Count 4.59 10^6/uL (4.20-5.40); White Blood Count 4.8 10^3/uL (4.0-11.0)
[2025-04-18 12:07] LABS: Thyroid Stimulating Hormone 1.106 uIU/mL (0.358-3.740)
[2025-04-19 07:09] LABS: FSH 6.7 mIU/mL (.)
== END 2025-04-18 10:01 | disposition home or self-care (01) ==
LOC: LAB 10:00
PROVIDERS: PCP Nurse Practitioner Family; Visit Provider Obstetrics & Gynecology
DX: E28.2 Polycystic ovarian syndrome (principal); N93.9 Abnormal uterine and vaginal bleeding, unspecified
CPT/HCPCS: 36415; 83001; 83002; 83036; 84439; 84443; 84702; 85025

== ENCOUNTER 2025-06-17 07:29 | Outpatient (RCR) | payer BC, SELFPAY ==
--- OUTSIDE RECORDS SUMMARY | 2025-06-17 07:31 | XMS_ITS | Clinical Summary ---
Author Organization [facility] Address [address] [place] [address] Care Team Providers Care Mainstreaming Facilitator Name Role Phone Kyree Stinson MD Primary Care Provider [phone] Allergies Active AllergyReactionsCriticalityNoted DateCommentsMetronidazoleAnxiety, Diarrhea,Dizziness,Nausea Only,Palpitations,Rash,Shortness of breathHigh 07/31/2022 Medications MedicationSigDispense QuantityRefillsLast FilledStart DateEnd DateStatus amitriptyline (Elavil) 25 mg tablet Take 25 mg by mouth in the morning.12/28/2023ctive dicyclomine (Bentyl) 10 mg capsule Take 10 mg by mouth if needed each day.11/29/2023ctive escitalopram (Lexapro) 10 mg tablet Take 5 mg by mouth in the morning.11/29/2023ctive hyoscyamine ER (Levbid) 0.375 mg 12 hr tablet Take 1 tablet by mouth Twice daily at 6am and 6pm.12/13/2023ctive ondansetron ODT (Zofran-ODT) 4 mg disintegrating tablet Take 4 mg by mouth every 6 (six) hours if needed.12/28/2023ctive ondansetron (Zofran) 4 mg tablet Take 4 mg by mouth.09/01/2022ctive Active Problems ProblemNoted DateDiagnosed DateLong-term use of high-risk mazdbuilib13/24/2024 Upper back pain07/15/20247707Uzwqrjctep77/25/3617Ihorlrqujzhf95/25/2024enal vein cosaovdv26/28/2023yst of left ovary01/24/20231347Bjjqohg44/05/2023Menstrual zubrgvuz68/05/6463Aldgsjisqhp13/05/2023Pain due to genitourinary prosthetic devices, implants and grafts, initial /05/2023bnormal findings on imaging test12/08/20225437Iawoktyztrsadngc98/19/2023ile reflux mnonddxtp40/11/2022 Allergy to food05/02/2022nxiety about cvvxmv7705/02/2022ody mass index (BMI) of 20 to 2410851Oyzznvovdd59/11/2022Altered bowel erbplzpo18/11/2022Lower abdominal pain05/02/2022Generalized anxiety ipzohtnh16/11/2022Irritable bowel syndrome with vujkcppb16/11/6314Dskbwu15/11/8825Ppfkxgqpnko17/11/2022hronic rnujxyq18/20/2022Recurrent abtvcmodoc86/20/2815Evpsichur86/20/2022lostridium difficile soytlin4110/28/2021 Resolved Problems ProblemNoted DateDiagnosed DateResolved BkjfAzxvxxkwzei27 Chronic left shoulder pain/hronic pain of left knee Immunizations ImmunizationAdministration DatesNext FntYMhR6701/27/2004DTaP, Unspecified 05/21/2000,05/16/1999,03/18/1999,01/14/1999HPV, Kxtgnkcrntvs85/01/2011, 02/07/2011Hep B, Adolescent or Efrahvoid84/25/1999,01/14/1999,1998HiB, althtqktjsb05/02/2000,05/16/1999,03/18/1999,01/14/1999IPV01/27/2004MMR01/27/2004 ,02/22/2000Meningococcal HOU8N9802/07/2011Pneumococcal Conjugate PCV Polio, Zzwwipvyiyy50/02/2000,05/16/1999,03/18/1999,01/14/1999Tdap02/07/2011 Unspecified Sars-Cov-2 Othbunrrcgl17/15/2021,04/06/2021,03/16/2021,03/16/2021 Fxfvqnrdb71/07/2010,02/07/2011,11/24/1999 Social History Tobacco UseTypesPacks/DayYears UsedDateSmoking Tobacco: NeverSmokeless Tobacco: Never Tobacco Cessation:Counseling Given: Not Answered Alcohol UseStandard Drinks/WeekCommentsNever0 (1 standard drink = 0.6 oz pure alcohol)Humiliation, Afraid, Rape, and Kick questionnaireAnswerDate Recorded Within the last year, have you been afraid of your partner or ex-partner?No 07/28/2024Within the last year, have you been humiliated or emotionally abused in other ways by your partner or ex-partner?No07/28/2024Within the last year, have you been kicked, hit, slapped, or otherwise physically hurt by your partner or ex-partner?No07/28/2024Within the last year, have you been raped or forced to have any kind of sexual activity by your partner or ex-partner?No07/28/2024PHQ-2 AnswerDate RecordedPatient Health Questionnaire-2 Pazze635UT Safety & EnvironmentAnswerDate RecordedFear of Current or Ex-PartnerNot on file09/13/2023 Emotionally AbusedNot on file09/13/2023hysically AbusedNot on file09/13/2023 Sexually AbusedNot on file4Physically or Sexually AbusedNot on file 09/13/2023CommentsNoSex and Gender InformationValueDate RecordedSex Assigned at ScumqHvwefd83/07/2023 9:41 PM ESTLegal GxzCtlygk89/30/2022 12:44 AM EDTGender UhndtoktDhuxrf84/07/2023 9:41 PM ESTSexual OrientationNot on file Last Filed Vital Signs Vital SignReadingTime TakenCommentsBlood Apxiwzkx895/63007/28/2024 2:22 PM EST Fqzcr886107/28/2024 2:22 PM CUAEcyotghbipl02.4 ??C (97.5 ??F)08/15/2022 10:15 AM ESTRespiratory Iase968208/15/2022 12:00 PM ESTOxygen Odvlkwarpd909%08/15/2022 12:00 PM ESTInhaled Oxygen Concentration--Clvmjt26.2 kg (115 lb)07/28/2024 2:22 PM IYLMfzjlq858.6 cm (5' 4 )07/28/2024 2:22 PM ESTBody Mass Index19.7407/28/2024 2:22 PM EST Plan of Treatment Health MaintenanceDue DateLast DoneCommentsHPV Vaccines (3 - 2-dose series) , 02/07/2011Pap Smear11/18/2019Adult Tmvkfth5211/17/2020 02/07/2011COVID-19 Vaccine ( season), 04/06/2021, 04/06/2021, Additional history existsInfluenza Vaccine (#1)03/23/2025Depression Jhpegbjgh42/06/411378/12/2024Zoster Vaccines (1 of 2)911/07/2010, 02/07/2011, 11/24/1999HIB TgiknyvyOqsfnyvwb51/02/2000, 05/16/1999, 03/18/1999, Additional history existsPneumococcal Vaccine: Pediatrics (0 to 5 Years) and At- Risk Patients (6 to 64 Years)Aged Out05/21/2000No longer eligible based on patient's age to complete this topicIPV XzoqmcslSphaippao98/07/2004, 02/22/2000, 05/16/1999, Additional history existsMeningococcal VaccineAged Out02/07/2011No longer eligible based on patient's age to complete this topicVaricella Vaccines Sydxjjieg44/01/2011, 02/07/2011, 11/24/1999Meningococcal B VaccineAged OutNo longer eligible based on patient's age to complete this topicRotavirus Vaccines Aged OutNo longer eligible based on patient's age to complete this topic Insurance Care Teams Team MemberRelationshipSpecialtyStart DateEnd Date Kyree Stinson MD [address], [place] [id number] [facility]09/20/22
--- OUTSIDE RECORDS SUMMARY | 2025-06-17 07:32 | XMS_ITS | Clinical Summary ---
Author Organization [facility] Address [address] [place], [place] [address] Care Team Providers Care Coke Worker Name Role Phone Keshia Restrepo MD Primary Care Provider [phone] Allergies Active AllergyReactionsCriticalityNoted DateCommentsMetronidazoleMental Status Change,Diarrhea,GI Upset,Hives,Other: See Comments,Rash,Shortness of Breath, Unknown,VlyjwlniPhqj97/16/2021 Medications MedicationSigDispense QuantityRefillsLast FilledStart DateEnd DateStatus escitalopram oxalate (LEXAPRO) 10 mg tablet Take 5 mg by mouth once daily.Active ondansetron (ZOFRAN) 4 mg tablet Take 4 mg by mouth as needed.09/01/2022ctive gabapentin (NEURONTIN) 100 mg capsule Indications:Right sided abdominal pain,Neuralgia and neuritistake 1 tab PO qHS x 3 days, then take 1 tab PO BID x 3 days, then take 2 tabs PO BID if tolerated. 120 capsule 4Active colestipol (COLESTID) 1 gram tablet TAKE 2 TABLETS BY MOUTH EVERY DAY 180 tablet 5Active Active Problems ProblemNoted DateDiagnosed DateUpper back pain07/15/2024Long-term use of high- risk gdxoamqomc26/24/2024Organic anxiety qpkvwucg04/25/2024alpitations 11/15/2023ilateral arm pain3Chronic bilateral low back pain without zommozhs21/19/2023bnormal findings on imaging test3Photosensitivity 1788Gsfvdssvwse91/20/2022Chronic pain of left knee2Chronic left shoulder pain2Recurrent caxlfjtswy38/20/6334Etuihtaxo88/20/2022Chronic cjmwpkv9112/09/2021 Family History Medical HistoryRelationCommentsHeartFatherProstate CancerFatherStrokeMotherColon CancerNo Family HistoryRelationStatusCommentsFatherAliveMotherAlive Social History Tobacco UseTypesPacks/DayYears UsedDateSmoking Tobacco: NeverSmokeless Tobacco: Never Tobacco Cessation:Counseling Given: Yes Alcohol UseStandard Drinks/WeekCommentsNot Currently0 (1 standard drink = 0.6 oz pure alcohol)socially- rarePHQ-2AnswerDate RecordedPHQ-2 dqazv5094Area Deprivation IndexAnswerDate RecordedNational Score (1-100), lower number is lower buwd2373State Score (1-10), lower number is lower nwgv629 Data from: https://www.neighborhoodatlas.[facility].edu/. Last address used for pxiavqwamke[address]3CommentsNoSex and Gender InformationValueDate RecordedSex Assigned at AftksPzuayk97/13/2021 10:03 PM EDT Legal ArpSxipku98/14/2021 4:54 PM EDTGender DjxdlbxxUqnbcn38/13/2021 10:03 PM EDTSexual FawilcapuuwEngksaiw23/13/2021 10:03 PM EDT Last Filed Vital Signs Vital SignReadingTime TakenCommentsBlood Yujtufas677/61009/03/2024 11:00 AM EST Ituys038009/03/2024 11:00 AM AZJXmwknpocbfh24.9 ??C (98.4 ??F)09/03/2024 10:13 AM ESTRespiratory Gtev403609/03/2024 11:00 AM ESTOxygen Zqcsstbtwj260%09/03/2024 11:00 AM ESTInhaled Oxygen Concentration--Nnbqdr13.2 kg (115 lb)09/03/2024 10:13 AM QFIZaomeq043.6 cm (5' 4 )09/03/2024 10:13 AM ESTBody Mass Index19.74 09/03/2024 10:13 AM EST Plan of Treatment Health MaintenanceDue DateLast DoneCommentsPeds To Adult Transition Initial Gmdcnyvisc27/28/2011HPV Vaccine (3 - 2-dose series), 02/07/2011Peds To Adult Transition Annual Bxjjorostz75/28/2013Depression Oisnvzmkr26/28/2017HIV Nhqduvabp91/28/2017Cervical Cancer Hokdblzbc96/28/2020 DTaP,Tdap,Td Vaccine (7 - Td or Tdap), 01/27/2004, 05/21/2000, Additional history existsCovid-19 Vaccine (2024- season) /, 03/16/2021Influenza Vaccine (#1)2025Hepatitis B YdmojreNvyyiuulo81/25/1999, 01/14/1999, 1998Hepatitis C ScreeningCompleted 12/08/2022 Procedures Procedure NamePriorityDate/TimeAssociated DiagnosisCommentsHEPATITIS C ANTIBODY IA WITH QCARWTLEPIJTVqvbiux77/19/2023 12:39 PM EDT Elevated LFTs from Last 3 Months or Most Recently Relevant to Health Maintenance Results * HEP C AB IA W/CONF SCRN (12/08/2022 12:39 PM EDT)ComponentValueRef RangeTest MethodAnalysis TimePerformed AtPathologist SignatureHep C Antibody IANegative Gccxjbix67/20/2023 10:13 AM EDTCBARNESVILLE HOSPITAL LABComment:The result suggests no evidence of active infection with Hepatitis C virus. Should recent infectionbe suspected, repeat testing may be considered 4-6 weeks after this draw.Specimen (Source)Anatomical Location / LateralityCollection Method / VolumeCollection TimeReceived TimeBloodBLOOD SPECIMEN / UnknownVenipuncture / Xxfvipy3612/08/2022 12:39 PM EDT12/08/2022 12:41 PM EDT Narrative Authorizing ProviderResult TypeResult StatusMarsundeep Gee MDLABORATORYFinal ResultPerforming OrganizationAddressCity/State/ZIP CodePhone Number [facility] [address] [place] [address], from Last 3 Months or Most Recently Relevant to Health Maintenance Insurance Care Teams Team MemberRelationshipSpecialtyStart DateEnd Date Keshia Restrepo MD [address] [place] [address] PCP - GeneralFamily Ciarwdaj08/20/24
--- OUTSIDE RECORDS SUMMARY | 2025-06-17 07:32 | XMS_ITS | Clinical Summary ---
Author Organization [facility] Address [address] [place] [address] Phone Care Team Providers Care Turn Down Man Name Role Phone Unavailable Primary Care Provider Unavailabl e Allergies Active AllergyReactionsCriticalityNoted DyxlDdayssxeNsclzbknifufdDxlzm26/25/2024 Medications MedicationSigDispense QuantityRefillsLast FilledStart DateEnd DateStatus dicyclomine (Bentyl) 10 mg capsule Take 1 capsule (10 mg) by mouth once daily as needed.11/29/2023ctive escitalopram (Lexapro) 10 mg tablet Take 0.5 tablets (5 mg) by mouth once daily.11/29/2023ctive ondansetron ODT (Zofran-ODT) 4 mg disintegrating tablet Take 1 tablet (4 mg) by mouth every 6 hours if needed.12/28/2023ctive Active Problems ProblemNoted DateDiagnosed LtdiMiuintlogq79/25/2024 Social History Tobacco UseTypesPacks/DayYears UsedDateSmoking Tobacco: NeverSmokeless Tobacco: Never Tobacco Cessation:Counseling Given: Not Answered Alcohol UseStandard Drinks/WeekCommentsNot Currently0 (1 standard drink = 0.6 oz pure alcohol)AUDIT-CAnswerDate RecordedQ1: How often do you have a drink containing alcohol?Never02/05/2024Q2: How many drinks containing alcohol do you have on a typical day when you are drinking?Patient does not drink02/05/2024Q3: How often do you have six or more drinks on one occasion?Never02/05/2024HQ-2 AnswerDate RecordedPatient Health Questionnaire-2 Fyubs559 CommentsNoSex and Gender InformationValueDate RecordedSex Assigned at Lodrcv0801/30/2024 9:51 AM EDTLegal DrgIlnfrl72/04/2024 8:24 AM EDTGender Identity Wojzel3701/30/2024 9:51 AM EDTSexual GxnzszrwtxyHwjnhtaj02/10/2024 9:51 AM EDT Last Filed Vital Signs Vital SignReadingTime TakenCommentsBlood Crzprfzv95/6409 10:51 AM EDT Vyfye3728 10:51 AM QNWWzvifipniex99.2 ??C (97.2 ??F)04/16/2024 10:21 AM EDTRespiratory Jcds598904/16/2024 10:51 AM EDTOxygen Pxvabwzkcm456%04/16/2024 10:51 AM EDTInhaled Oxygen Concentration--Yxualx01.2 kg (115 lb)04/16/2024 8:23 AM KIOXurjiw991.6 cm (5' 4 )04/16/2024 8:23 AM EDTBody Mass Index19.7404/16/2024 8:23 AM EDT Plan of Treatment Health MaintenanceDue DateLast DoneCommentsHIV Xuewbnqht39/28/1999Lipid Panel 1998HPV Vaccines (3 - 2-dose series), 02/07/2011 Hepatitis C Krnkgqwoq00/28/2017Cervical Cancer Ivovpetio30/28/2020HPV/Cotest 11/18/2019Pap Smear11/18/2019DTaP/Tdap/Td Vaccines (7 - Td or Tdap)02/07/2021 02/07/2011, 01/27/2004, 05/21/2000, Additional history existsYearly Adult Xafgawww38/16/313270/, 05/24/2023Influenza Vaccine (#1)5COVID-19 Vaccine ( season), 03/16/2021Zoster Vaccines (1 of 2)911/07/2010, 02/07/2011, 11/24/1999Hepatitis B VaccinesCompleted 05/16/1999, 01/14/1999, 1998HIB JxislbdjSreljujnu91/02/2000, 05/16/1999, 03/18/1999, Additional history existsPneumococcal Vaccine: Pediatrics and At- Risk Adult PatientsAged Out05/21/2000No longer eligible based on patient's age to complete this topicIPV DlgoalgnJwzvxczfr54/07/2004, 02/22/2000, 05/16/1999, Additional history existsMMR NicolozwWyuklkhlq44/07/2004, 02/22/2000 Meningococcal VaccineAged Out02/07/2011No longer eligible based on patient's age to complete this topicHepatitis A VaccinesAged OutNo longer eligible based on patient's age to complete this topicRotavirus VaccinesAged OutNo longer eligible based on patient's age to complete this topic Insurance
--- OUTSIDE RECORDS SUMMARY | 2025-06-17 07:32 | XMS_ITS | CCD ---
Author Organization [facility] Care Team Providers Care Group Leader Name Role Phone Arlene Negro Unavailable Jaya [...] Care Unavailable MISC, DR HELLER Consulting Unavailable ZADVINSKIS, DARA Consulting Unavailable MISC, DR HELLER Admitting Unavailable [...] HEMEYER ., DR MATA Primary Care Unavailable [place], DR DARA Ledezma Consulting Unavailable MISC, DR [...] ., DR HUFF Attending Unavailable HEMEYER ., DR MATA Primary Care Unavailable EHIKE ., DR HUFF Consulting Unavailable HEMEYER ., DR MATA Admitting Unavailable HEMEYER ., DR MATA Attending Unavailable HEMEYER ., DR MATA Primary Care Unavailable MISC, DR HELLER Admitting Unavailable MISC, DR HELLER Attending Unavailable HEMEYER ., DR MATA Primary Care Unavailable MISC, DR HELLER Consulting Unavailable HOY, GABINO Admitting Unavailable HOY, GABINO Attending Unavailable HOY, GABINO Primary Care Unavailable HOY, GABINO Consulting Unavailable DITTY, JAYA Primary Care Unavailable TUCKER, DR MARIANNE Garcia Admitting Unavailabl e REINECK, DR MARIANNE Garcia Attending Unavailabl e REINECK, DR MARIANNE Garcia Consulting Unavailabl e MISC, DR HELLER Admitting Unavailable MISC, DR HELLER Attending Unavailable HOY, GABINO Primary Care Unavailable MISC, DR HELLER Consulting Unavailable Gabino Owen MD Primary Care Provider [phone] Jose Luis Hernandez Attending Unavailab le Jose Luis Hernandez Admitting Unavailab le NON STAFF Primary Care Unavailable Provider, Ordering Unavailable Analia Holliday Unavailable DAVID Holliday Primary Care Provider DAVID Holliday Attending Provider Analia Holliday CNP Primary Care Provider Analia Holliday CNP Primary Care Provider DO Ana Bolton Attending Provider KAPLE, ANALIA M Primary Care Unavailable MILAGROS MENONAdela Referring Unavailable ELIF HESS Attending Unavailable DARA BUTLER Referring Unavailable KAPLE, ANALIA M Primary Care Unavailable KAPLE, ANALIA M Primary Care Unavailable SEEMA DAVIS Admitting Unavailable SEEMA DAVIS Attending Unavailable DARA BUTLER Referring Unavailable KAPLE, ANALIA M Primary Care Unavailable DARA BUTLER Referring Unavailable HOY GABINO M Primary Care Unavailable DARA BUTLER Referring Unavailable CHARLI GABINO M Primary Care Unavailable Gabino Owen MD Primary Care Provider [phone] Jennifer Frazier MD Primary Care Provider Kyree Stinson MD Primary Care Provider [phone] Kyree Stinson MD Unavailable Unavailable Primary Care Provider UnavailSEEMA Peña Referring Unavailable KAPLE, ANALIA M Primary Care Unavailable MADHU CAUSEY Referring Unavailable KAPLE, ANALIA M Primary Care Unavailable NAE IBARRA Referring Unavailable JENNIFER FRAZIER Primary Care Unavailable Ana Bolton Attending Unavailable Ana Bolton Admitting Unavailable Anlaia Dennis Attending Unavailable Analia Dennis Admitting Unavailable Rohrbacher Analia GALDAMEZ Attending Provider [phone] PAULA HUGGINS Attending Unavailable Unavailable Primary Care Provider Unavailaldair e DARA BUTLER JR Referring Unavailable KAPLE, [...] Attending Unavailable ANALIA HOLLIDAY Primary Care Unavailable Paula Alberts DO Primary Care Provider JEREMIAH BURROUGHS Attending Unavailable ELIF RICH Attending Unavailable JEREMIAH BURROUGHS Attending Unavailable Unavailable Primary Care Provider Unavailaldair e Allergies Allergy ClassificationReported Allergen(s)Allergy TypeDate of OnsetReaction(s) FacilityNitroimidazoles (antibiotic) (1 source)metroNIDAZOLEDrug Ojinycb44-30-2126Ojgxof Status Change, Diarrhea, GI Upset, Hives, Other: See Comments, Rash, Shortness of Breath, Unknown, Vomiting [facility] (20 sources)metroNIDAZOLE; Translations: [METRONIDAZOLE]Drug Eryrven98-97-5028 Mental Status Change, Diarrhea, GI Upset, Hives, Other: See Comments, Rash, Shortness of Breath, Unknown, [facility]iting[facility] (1 source)metroNIDAZOLEDrug Bryfdin79-71-6077PmkS[facility] (8 sources)VancomycinDrug [facility]ergyCass [facility] Other (1 source)metroNIDAZOLEDrug Jvjalen30-27-5534QebqtrplvSheltering Arms Hospital Repository (1 source)VancomycinDrug Otqhzzq34-68-7518FcsckbmhqSheltering Arms Hospital Repository Medications Current Medications MedicationDrug Class(es)DatesSig (Normalized)Sig (Original)cholecalciferol, vitamin D3, (VITAMIN D3 ORAL) (2 sources)take 1 tablet by mouth in the morningcholecalciferol, vitamin D3, (VITAMIN D3 ORAL) Take 1 tablet by mouth in the morning. Activecolestipol hydrochloride 1000 mg oral tablet (2 sources)Bile Acid SequestrantStart: 09-05-2024 End: 01-71-9298tnro 2 tablets by mouth once dailycolestipol (COLESTID) 1 gram tablet Take 2 tablets by mouth once daily. 60 tablet 2 09/09/2024 12/08/2024 Activedicyclomine hydrochloride 20 mg oral tablet (20 sources)AnticholinergicStart: 03-14-2024 End: 69-11-1950lafr 1 tablet by mouth twice dailydicyclomine (BENTYL) 20 mg tablet Take 1 tablet by mouth two times a day. 60 tablet 2 03/14/2024 06/12/2024 ActiveStart: 76-04-8779vkza 1 capsule by mouth every twenty-four hours as neededdicyclomine (Bentyl) 10 mg capsule Take 1 capsule (10 mg) by mouth once daily as needed. 11/29/2023ctiveStart: 63-33-2089xpmh 1 capsule by mouth three times daily as neededDicyclomine 10 mg capsule Active 10 MG PO Three times daily as needed November 29, 2023 12:00am FreeTextSig: TAKE 1 CAPSULE BY MOUTH 3 TIMES A DAY NEEDED; Note: Source Status: Taking; Refills: 3; Qty:90 Capsule; Provider: Dereje Schaefer ( )Start: 11-22-2022 End: 44-14-2044hzyb 1 capsule by mouth every eight hours as neededdicyclomine (BENTYL) 10 mg capsule Take 10 mg by mouth three times daily as needed. 0 11/22/2022 02/06/2023 DiscontinuedStart: 03-15-2022 End: 30-94-2901dwvz 1 tablet by mouth every eight hoursdicyclomine (BENTYL) 20 mg tablet Take 1 tablet by mouth q 8 HR. 0 03/15/2022 ActiveComment on above: Take 10 mg by mouth three times daily as needed.Take 1 tablet by mouth q 8 HR. escitalopram 10 mg oral tablet (20 sources)Serotonin Reuptake InhibitorStart: 03-19-2024 End: 13-72-7805xrfd 1 tablet by mouth once dailyEscitalopram Oxalate 10 mg tablet Active 10 MG PO Daily 90 October 27, 2024 11:27amStart: 01-16-2024 End: 03-89-8452euxr 1 tablet by mouth once dailyEscitalopram Oxalate 5 mg tablet Discontinued 5 MG PO Daily 90 January 16, 2024 12:00am March 19, 2024 1:45pmStart: 13-35-2819ytri 0.5 tablet by mouth once dailyescitalopram (Lexapro) 10 mg tablet Take 0.5 tablets (5 mg) by mouth once daily. 11/29/2023 Active Start: 11-29-2023 End: 88-21-5466ihom 1 tablet by mouth once dailyEscitalopram Oxalate Discontinued 5 MG PO Daily November 29, 2023 11:36am January 16, 2024 10:59pm FreeTe xtSi tablet Orally Once a day; Note: Source Status: Taking; Provider: Miya Helms ( )Start: 11-29-2023 End: 03-04-1799ygev 1 tablet by mouth once dailyEscitalopram Oxalate 10 mg tablet Discontinued 5 MG PO Daily November 29, 2023 11:36am January 16, 2024 10:59pm FreeTextSi tablet Orally Once a day; Note: Source Status: Taking; Provider: Miya Helms ( )take 5 mg by mouth in the morningescitalopram (Lexapro) 10 MG tablet Take 5 mg by mouth in the morning. Activetake 1 tablet by mouth once dailyescitalopram oxalate (LEXAPRO) 10 mg tablet Take 10 mg by mouth once daily. 0 ActiveComment on above:Take 10 mg by mouth once daily.fidaxomicin 200 mg oral tablet (8 sources)Macrolide AntibacterialStart: 91-28-2738oonz 1 tablet by mouth every twelve hoursDificid 200 MG 1 tablet Orally Twice a day for 10 days Mar, Activetake 1 tablet by mouth every twelve hoursDificid 200 MG 1 tablet Orally Twice a day PT PICKS THE SCRIPT TODAY Activegabapentin 100 mg oral capsule (10 sources)Anti-epileptic AgentStart: 04-30-2024 End: 94-62-9345vuqk 1 tablet by mouth once daily at bedtime, then take 1 tablet by mouth twice daily, then take 2 tablets by mouth twice dailygabapentin (NEURONTIN) 100 mg capsule Indications: Right sided abdominal pain , Neuralgia and neuritis take 1 tab PO qHS x 3 days, then take 1 tab PO BID x 3 days, then take 2 tabs PO BID if tolerated. 120 capsule 5 04/30/2024 04/23/2025 Active ondansetron 4 mg disintegrating oral tablet (20 sources)Serotonin-3 Receptor AntagonistStart: 87-24-5488Dqegvkbumpz 4 mg tablet,disintegrating Active 4 MG PO as needed November 12, 2024 12:00amStart: 77-57-4804dsjorwzexbn (ZOFRAN) 4 mg tablet Take 4 mg by mouth as needed. 09/01/2022 ActiveComment on above:Take 4 mg by mouth as needed.predniSONE 20 mg oral tablet (13 sources)Start: 04-04-2023 End: 07-90-6965qkao 1 tablet by mouth once dailypredniSONE (DELTASONE) 20 mg tablet Take 1 tablet by mouth once daily for 10 days. 10 tablet 0 04/04/2023 04/14/2023 ActiveStart: 03-13-2023 End: 75-29-5568gaue 1 tablet by mouth once dailypredniSONE (DELTASONE) 20 mg tablet Take 1 tablet by mouth once daily for 14 days. 14 tablet 0 03/13/2023 03/27/2023 ActiveStart: 10-31-2020 End: 59-41-6632jkjm 1 tablet by mouth once daily at mealtimePrednisone 50 mg tablet Discontinued 50 MG PO Daily 5 October 31, 2020 12:00am November 29, 2023 11:18am administer with food or milkComment on above:Take 1 tablet by mouth once daily for 14 days.Take 1 tablet by mouth once daily for 10 days.vancomycin 125 mg oral capsule (2 sources)Glycopeptide AntibacterialStart: 07-14-2024 End: 03-71-5043kmix 1 capsule by mouth three times dailyvancomycin (VANCOCIN) 125 mg capsule Indications: Clostridium difficile infection Take 1 capsule by mouth three times a day for 10 days. 30 capsule 07/14/2024 07/24/2024 Active Completed/Discontinued Medications MedicationDrug Class(es)DatesSig (Normalized)Sig (Original)amitriptyline hydrochloride 25 mg oral tablet (20 sources)Tricyclic AntidepressantStart: 12-28-2023 End: 12-26-1415wicw 1 tablet by mouth once daily at bedtimeamitriptyline (ELAVIL) 25 mg tablet take 1 tablet by mouth everyday at bedtime 90 tablet 1 03/25/2024 04/30/2024 DiscontinuedStart: 05-22-2023 End: 25-98-4075bpcm 1 tablet by mouth once daily at bedtimeamitriptyline (ELAVIL) 25 mg tablet Take 1 tablet by mouth daily at bedtime. 30 tablet 0 Discontinued (Discontinued by Patient)Comment on above:Take 1 tablet by mouth daily at bedtime.amylase 679333 unt / lipase 28350 unt / protease 62175 unt delayed release oral capsule (16 sources)Start: 06-06-2023 End: 96-60-6010krhg 2 capsules by mouth twice daily at mealtime mowfix-uahyubsg-jhhnjds (CREON) 24,000-76,000 -120,000 unit delayed release capsule Take 2 capsulesby mouth two times a day with meals. 120 capsule 0 06/06/2023 10/22/2023 DiscontinuedStart: 02-06-2023 End: 72-11-7858bvsn 1 capsule by mouth three times daily at mealtime sirubv-elwouazc-mxxqjci (ZENPEP) 40,000-126,000- 168,000 unit delayed release capsule Indications: Generalized abdominal pain , Chronic pancreatitis, unspecified pancreatitis type (HCC) , Intestinal malabsorption, unspecified type Take 1 capsule by mouth three times daily with meals. 90 capsule 2 02/06/2023 05/22/2023 DiscontinuedComment on above:Take 1 capsule by mouth three times daily with meals.Take 2 capsules by mouth two times a day with meals. chlordiazePOXIDE hydrochloride 5 mg / clidinium bromide 2.5 mg oral capsule (8 sources)Anticholinergic, BenzodiazepineStart: 03-13-2023 End: 85-04-1853nxwd 1 capsule by mouth three times daily at mealtime, then take 5 capsules by mouth oncechlordiazePOXIDE-clidinium (LIBRAX) 5-2.5 mg per capsule TAKE 1 CAPSULE BY MOUTH THREE TIMES DAILY WITH MEALS 90 capsule 1 05/01/2023 05/22/2023 DiscontinuedComment on above:Take 1 capsule by mouth three times daily with meals.TAKE 1 CAPSULE BY MOUTH THREE TIMES DAILY WITH MEALS cholecalciferol 0.05 mg oral capsule (8 sources)Vitamin DStart: 11-29-2023 End: 72-86-4608lrst 1 capsule by mouth once dailyCholecalciferol (Vitamin D3) 50 mcg (2,000 unit) capsule Discontinued 2000 UNIT PO Daily November 29, 2023 12:00am March 19, 2024 1:34pm FreeTextSi capsule Orally Once a day; Note: Source Status: Start; Refills: 4; Provider: Miya Helms MStart: 22-74-1606zyqv 1 capsule by mouth every twenty-four hoursVitamin D3 50 MCG (2000 UT) 1 capsule Orally Once a day for 30 days May, Activecyclobenzaprine hydrochloride 10 mg oral tablet (8 sources)Muscle RelaxantStart: 10-31-2020 End: 79-95-7053rjml 1 tablet by mouth three times daily as needed for muscle spasmsCyclobenzaprine 10 mg tablet Discontinued 10 MG PO Three times daily as needed for muscle spasm October 31, 2020 12:00am March 19, 2024 1:35pm diclofenac sodium 50 mg delayed release oral tablet (8 sources)Nonsteroidal Anti-inflammatory DrugStart: 10-31-2020 End: 62-79-9878gomu 1 tablet by mouth every twelve hours as needed for pain Diclofenac Sodium 50 mg tablet,delayed release (DR/EC) Discontinued 50 MG PO Q12H as needed for pain October 31, 2020 12:00am November 29, 2023 11:18am ergocalciferol 1.25 mg oral capsule (10 sources)Provitamin D2 CompoundStart: 12-14-2022 End: 07-90-6409lkumwcxnbeurew 50,000 unit capsule (VITAMIN D2, DRISDOL) Indications: Vitamin D deficiency (take bymouth with food twice a week, ONE CAPSULE ON SUNDAY AND ONE ON SUNDAY) FOR A TOTAL OF 8 WEEKS. 16capsule 0 12/14/2022 05/22/2023 DiscontinuedComment on above:(take by mouth with food twice a week, ONE CAPSULE ON SUNDAY AND ONE ON SUNDAY) FOR A TOTAL OF 8 WEEKS. hydrOXYzine hydrochloride 25 mg oral tablet (8 sources)AntihistamineStart: 10-31-2020 End: 43-20-2007kihb 1 tablet by mouth every six hours as needed for anxiety Hydroxyzine Hcl 25 mg tablet Discontinued 25 MG PO Q6H as needed for anxiety October 31, 2020 12:00am March 19, 2024 1:35pm12 hr hyoscyamine sulfate 0.375 mg extended release oral tablet (5 sources)Start: 12-12-2023 End: 22-53-3894oixt 1 tablet by mouth twice dailyhyoscyamine SR (LEVBID) 0.375 mg 12 hr tablet Take 1 tablet by mouth two times a day. 60 tablet 2 12/13/2023 12/28/2023 DiscontinuedStart: 02-06-2023 End: 79-74-4017xddb 1 tablet by mouth twice dailyhyoscyamine SR (LEVBID) 0.375 mg 12 hr tablet Indications: Generalized abdominal pain , Chronic pancreatitis, unspecified pancreatitis type (HCC) , Intestinal malabsorption, unspecified type Take 1 tablet by mouth twice daily. 60 tablet 2 02/06/2023 05/07/2023 Active Comment on above:Take 1 tablet by mouth twice daily.iv contrast (will be provided with radiology test) (2 sources)Start: 06-13-2023 End: 83-79-4610ydfmej 1 dose intravenously onceiv contrast (will be provided with radiology test) [...] guidelines link. 1 Each 0 06/13/2023 06/14/2023 ExpiredStart: 03-16-2023 End: 98-20-7574zu contrast (will be provided with radiology test) MRI ABDOMEN Inject, intravenously, once for 1 dose. No IV access, insert saline lock prior to the beginning of sedation, infusion, injection of imaging exam. Discontinue saline lock post exam. If Pt. has a central line or IVAD, may access for admini stration according to line specific nursing protocol. Once exam is complete flush line and de-access according to line specific nursing protocol in the MR contrast administration guidelines link. 1 Each 0 03/16/2023 03/17/2023 Active Comment on above:MRI ABDOMEN Inject, intravenously, once for 1 dose. No IV access, insert saline lock prior to the beginning of sedation, infusion, injection of imaging exam. Discontinue saline lock post exam. If Pt.has a central line or IVAD, may access for administration according to line specific nursing protocol. Once exam is complete flush line and de-access according to line specific nursing protocol in the MR contrast administration guidelines link.CTA ABD/PEL - No IV access, insert saline lock prior to the sedation, infusion, injection for imaging exam. Discontinue saline lock post exam. If Pt. has a central line or IVAD, may access for administration according to line specific nursing protocol. Once exam is complete flush line and de-access according to line specific nursing protocol in the CT contrast administration guidelines link.lidocaine 0.05 mg/mg medicated patch (8 sources)Antiarrhythmic, Amide Local AnestheticStart: 10-31-2020 End: 94-70-8220kjqpx 1 dose topically once daily as needed for painLidocaine 5 % adhesive patch,medicated Discontinued 1 PATCH TOPICAL Daily as needed for pain October 31, 2020 12:00am November 29, 2023 11:18am leave on most painful area for up to 12 hrspantoprazole 40 mg delayed release oral tablet (10 sources)Proton Pump InhibitorStart: 01-22-2024 End: 20-87-7234depd 1 tablet by mouth once dailypantoprazole DR (PROTONIX) 40 mg tablet TAKE 1 TABLET BY MOUTH EVERY DAY 90 tablet 1 01/22/2024 04/30/2024 DiscontinuedStart: 74-96-6694mzoo 1 tablet by mouth once dailypantoprazole DR (PROTONIX) 40 mg tablet Take 1 tablet by mouth once daily. 30 tablet 2 12/28/2023 ActiveProgesterone 200 MG suppository (6 sources)Start: 06-23-2024 End: 48-68-8093Zdksoygqfams 200 MG suppository Indications: History of miscarriage Insert 200 mg into the vagina at bedtime Insert suppository vaginally every night at bedtime until 12 weeks gestation 30 suppository 3 06/23/2024 07/03/2024 DiscontinuedStart: 06-23-2024 End: 47-81-0277Atbtwntpdans 200 MG suppository Indications: History of miscarriage Insert 200 mg into the vagina at bedtime Insert suppository vaginally every night at bedtime until 12 weeks gestation 30 suppository 3 06/23/2024 07/23/2024 Zfasuz6986 ml sodium chloride 9 mg/ml injection (1 source)Start: 09-03-2024 End: 55-97-0091lkim 30 mL intravenously every hour30 mL/hr, INTRAVENOUS, CONTINUOUS, Starting on Sun09/03/24 at 1030, Until Ami 09/04/24 at 0420, Prepr oceduresucralfate 1000 mg oral tablet (2 sources)Aluminum ComplexStart: 12-24-2023 End: 43-81-4019tawf 1 tablet by mouth three times dailysucralfate (CARAFATE) 1 gram tablet Take 1 tablet by mouth three times a day. 90 tablet 2 12/24/2023 12/28/2023 Discontinuedsulfamethoxazole 800 mg / trimethoprim 160 mg oral tablet (1 source)Dihydrofolate Reductase Inhibitor Antibacterial, Sulfonamide AntimicrobialStart: 10-24-2024 End: 80-51-1918fach 1 tablet by mouth twice dailySulfamethoxazole-Trimethoprim 800-160 mg tablet Discontinued 1 TAB PO Twice daily 6 October 24, 2024 12:00am November 12, 2024 10:03am Problems Active Problems Problem ClassificationProblemDateDocumented DateEpisodic/ChronicAnxiety disorders (20 sources)Generalized anxiety disorder; Translations: [Generalized anxiety disorder]Onset: 55-18-1396PvrjwihJxearu; peripheral; and visceral artery aneurysms (1 source)Carotid artery aneurysm; Translations: [Aneurysm of carotid artery] 46-37-6889QjggsbrEwtoijk tract disease (1 source)Cholecystitis, unspecified; Translations: [Cholecystitis]Onset: 34-90-3232MqkdfmogEcasisg dysrhythmias (1 source)Supraventricular tachycardia; Translations: [Other supraventricular tachycardia (HCC)]98-22-2658WmcrxykPzimaphokwsvq and procreative management (2 sources)Patient encounter status; Translations: [Encounter for procreative management, unspecified]54-63-3533QoqxhimqBvehmajxrp disorders (9 sources)Gastroesophageal reflux disease; Translations: [Gastro-esophageal reflux disease without esophagitis]11-85-5568YavnwkaFgqah valve disorders (4 sources)Heart murmur; Translations: [Cardiac murmur, unspecified]03-19-2024 EpisodicImmunizations and screening for infectious disease (4 sources)Contact with and (suspected) exposure to other viral communicable diseases; Translations: [Encounter for screening for human papillomavirus (HPV)] Onset: 05-05-2021 Resolved: 34-39-9357GinucijyKyvxvkr and fatigue (20 sources)Chronic fatigue, unspecified; Translations: [Fatigue]Onset: 63-78-6058DxirforQbtaqagcx disorders (12 sources)Irregular menstruation, unspecified; Translations: [Disorder of menstruation]Onset: 718705-24-4834TvnjzjuAqzy disorders (4 sources)Depressive disorder; Translations: [Depression]Onset: 04-16-2024 71-47-8801BoblknzZuvapohli of unspecified nature or uncertain behavior (2 sources)Neoplastic disease; Translations: [Neoplasm of unspecified behavior of bone, soft tissue, and skin]62-94-4859PomvqotfMrbnuconlon deficiencies (13 sources)Vitamin D deficiency; Translations: [Vitamin D deficiency, unspecified]Onset: 11-58-1602LhlvrroGtccsblqpaf deficiencies (2 sources)Cobalamin deficiency; Translations: [Deficiency of other specified B group vitamins]Onset: 748313-71-1755LnygeeeoKoblu aftercare (1 source)Surgical follow-up; Translations: [Encounter for follow-up examination after completed treatment for conditions other than malignant neoplasm] 53-52-8128EctgrwzkZcxwr aftercare (2 sources)H/O: miscarriage; Translations: [Encounter for other specified aftercare]09-92-4487XzlgkpdyXdgki aftercare (6 sources)H/O: high risk medication; Translations: [Other ocean transportation intermediary (current) drug therapy]Onset: 073990-50-1854YhnhtmebXfqxz circulatory disease (7 sources)Celiac artery compression syndrome; 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]08-23-5526SndmdvvHgyjj connective tissue disease (8 sources)Pain in upper limb; Translations: [Pain in arm, unspecified] 11-61-4976GwwrtukxGgliq connective tissue disease (2 sources)Neuropathy; Translations: [Neuralgia and neuritis, unspecified] 59-82-6119YxlphyuiWnnlp diseases of kidney and ureters (1 source)Cyst of kidney, acquired; Translations: [CYST OF KIDNEY ACQUIRED] Onset: 63-97-4629JerhkptwKorlw disorders of stomach and duodenum (3 sources)Disorder of function of stomach; Translations: [Disease of stomach and duodenum, unspecified]41-83-6626TjlaicdpVmqcz disorders of stomach and duodenum (1 source)Disease of stomach and duodenum, unspecified; Translations: [Dyspepsia and disorder of function of stomach]Onset: 11-15-8798TroyimmaRkher endocrine disorders (2 sources)Polycystic ovary syndrome; Translations: [Polycystic ovarian syndrome]27-09-8949EtdhwsiMfhyb female genital disorders (2 sources)Abnormal uterine bleeding; Translations: [Abnormal uterine and vaginal bleeding, unspecified]81-78-2493YaxjesgFuhza gastrointestinal disorders (20 sources)Irritable bowel syndrome with diarrhea; Translations: [Irritable bowel syndrome with diarrhea]Onset: 063927-34-8410QishiulMxsjg gastrointestinal disorders (10 sources)Irritable bowel syndrome with diarrhea; Translations: [Irritable bowel syndrome]Onset: 11-51-7347RkqsfsjRcclb gastrointestinal disorders (1 source)Intestinal malabsorption; Translations: [Intestinal malabsorption, unspecified]17-66-0680UdmtfqxDgale gastrointestinal disorders (1 source)Intestinal malabsorption, unspecified; Translations: [Intestinal malabsorption, unspecified type]Onset: 26-39-5483MphesqvZcalw gastrointestinal disorders (8 sources)Diarrhea; Translations: [Diarrhea, unspecified]EpisodicOther gastrointestinal disorders (10 sources)Diarrhea, unspecified; Translations: [Diarrhea]Onset: 10-27-2022 EpisodicOther gastrointestinal disorders (4 sources)Personal history of other diseases of the digestive system; Translations: [PERSONAL HX OTH DZ DIGESTIVE SYSTEM]Onset: 52-85-1105Wjlxhalf Other gastrointestinal disorders (3 sources)History of pancreatitis; Translations: [Personal history of other diseases of the digestive system]15-20-6746XsrkyeqmBjean gastrointestinal disorders (1 source)Change in bowel habit; Translations: [Change in bowel habits]Onset: 89-51-1312AoylnrwzOvtxu infections; including parasitic (2 sources)Personal history of other infectious and parasitic diseases; Translations: [Personal history of other infectious and parasitic diseases] Onset: 692197-80-9436JyykgcciZamxg infections; including parasitic (1 source)History of Clostridium difficile intestinal infection; Translations: [Personal history of other infectious and parasitic diseases]65-13-4973Ywaujimo Other infections; including parasitic (4 sources)History of bacterial infection; Translations: [Personal history of other infectious and parasitic diseases]51-06-5821FgcftgdeZiclh nutritional; endocrine; and metabolic disorders (5 sources)Underweight; Translations: [UNDERWEIGHT]Onset: 94-51-1767Nmtvmmlz Other nutritional; endocrine; and metabolic disorders (4 sources)Abnormal weight loss; Translations: [ABNORMAL WEIGHT LOSS]Onset: 20-31-1436JuswjpjjFfokz screening for suspected conditions (not mental disorders or infectious disease) (20 sources)Radiology result abnormal; Translations: [Abnormal findings on diagnostic imaging of other specified body structures]Onset: 12-08-2022 51-80-6901BnsfgcdGoxah screening for suspected conditions (not mental disorders or infectious disease) (10 sources)Abnormal findings on diagnostic imaging of other abdominal regions, including retroperitoneum; Translations: [Other specified abnormal findings of blood chemistry]Onset: 64-46-1199ChnqvekpHrzbp skin disorders (1 source)Nonscarring hair loss, unspecified; Translations: [NONSCARRING HAIR LOSS UNSPECIFIED]Onset: 24-52-8228VlfitgzcBpmyfijxpm disorders (not diabetes) (11 sources)Chronic pancreatitis; Translations: [Other chronic pancreatitis] Onset: 187149-22-4368KniseyoAbwzjastua disorders (not diabetes) (1 source)Acute pancreatitis without necrosis or infection, unspecifiedEpisodic Residual codes; unclassified (1 source)FH: Cardiovascular disease; Translations: [Family history of ischemic heart disease and other diseases of the circulatory system]64-60-2174Lpgxwaaq Unclassified (1 source)APPOINTMENT XTMKUHZTJ04-49-4223Pdoneprcsgha (1 source)Other supraventricular tachycardia (HCC); Translations: [Other supraventricular tachycardia (HCC)]Onset: 81-01-5097Piazuyr tract infections (1 source)Urinary tract infection, site not specified; Translations: [Urinary tract infection, site not specified]Onset: 40-62-4689Irvtuvhc Past or Other Problems Problem ClassificationProblemDateDocumented DateEpisodic/ChronicAbdominal pain (20 sources)Right upper quadrant pain; Translations: [Right upper quadrant pain] Onset: 08-72-6217FjodwrclQqcskevr reactions (20 sources)Urticaria; Translations: [Urticaria, unspecified]Onset: 12-09-2021 01-46-1667MyibrfitPrssrto disorders (20 sources)Organic anxiety disorder; 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]Onset: 645990-46-0882IpgtykhjKmlvodl dysrhythmias (20 sources)Palpitations; Translations: [Palpitations]Onset: 11-07-2023 22-92-8941IcbmgnvbMabgzeposwcu of device; implant or graft (11 sources)Pain; Translations: [Pain due to genitourinary prosthetic devices, implants and grafts, initial encounter]Onset: 964375-86-1294GqbrjxvhZvbya of unknown origin (4 sources)Fever, unspecified; Translations: [FEVER UNSPECIFIED]Onset: 23-44-1234HnyevkbzVzezu and electrolyte disorders (1 source)Dehydration; Translations: [DEHYDRATION]Onset: 15-52-0706Lplauzcu Gastritis and duodenitis (11 sources)Bile-induced gastritis; Translations: [Other gastritis without bleeding]Onset: 505129-64-5764PrcbvoahAzbaourntoeej symptoms and ill- defined conditions (16 sources)Personal history of urinary (tract) infections; Translations: [Dysuria]Onset: 918465-98-4731HijzifosIntmxqhgjg infection (20 sources)Clostridial enteric disease; 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 due to Clostridium difficile, not specified as recurrent]Onset: 09-27-2021 Resolved: 99-97-8831DdxkejjlRfoujda and fatigue (4 sources)Weakness; Translations: [WEAKNESS]Onset: 87-91-0397Bnaipnlf Miscellaneous mental health disorders (11 sources)Anxiety about body function or health; Translations: [Other symptoms and signs involving emotional state]Onset: 54-26-587686516614-32-5506BqiomuooQhekde and vomiting (17 sources)Nausea; Translations: [Nausea]Onset: 68-88-3794YuywramaBmxxgrwxufmqo gastroenteritis (4 sources)Noninfective gastroenteritis and colitis, unspecified; Translations: [NONINFECTIVE GE AND COLITIS UNS]Onset: 38-43-5689TpquoxrpHsris connective tissue disease (20 sources)Pain of bilateral upper limbs; Translations: [Pain in right arm] Onset: 502531-40-9957QpzfmhcvJcugn diseases of veins and lymphatics (11 sources)Venous stenosis; Translations: [Compression of vein]Onset: 165573-65-4669MwdwdzdePhupa gastrointestinal disorders (13 sources)Altered bowel function; Translations: [Other specified symptoms and signs involving the digestive system and abdomen]Onset: EpisodicOther gastrointestinal disorders (11 sources)Borborygmi; Translations: [Other specified symptoms and signs involving the digestive system and abdomen]Onset: 926248-72-2422Rzktewtf Other infections; including parasitic (13 sources)Disorder due to infection; Translations: [Unspecified infectious disease]Onset: 149045-98-7046KdfmmpqdFraws infections; including parasitic (20 sources)Recurrent infectious disease; Translations: [Unspecified infectious disease]Onset: 864906-36-4198OumncccoIwzwl lower respiratory disease (1 source)Difficulty breathing; Translations: [Other abnormalities of breathing] 99-87-7415ZfehdhzfKdbgv non-traumatic joint disorders (20 sources)Pain in left knee; Translations: [Pain in joint, lower leg]Onset: 388420-77-3706DhoxnqbnKmzoo non-traumatic joint disorders (20 sources)Chronic pain of left upper limb; Translations: [Pain in left shoulder]Onset: 001997-15-7245UzkjojroDnwgv nutritional; endocrine; and metabolic disorders (11 sources)Underweight; Translations: [Underweight]Onset: EpisodicOvarian cyst (11 sources)Cyst of left ovary; Translations: [Unspecified ovarian cyst, left side]Onset: 703917-08-2127TfdrddksZdthpzya codes; unclassified (1 source)Acquired absence of other specified parts of digestive tract; Translations: [Other postprocedural status]61-08-7813XdgkkjyhFhttlqmshvb; intervertebral disc disorders; other back problems (20 sources)Neck pain; Translations: [Cervicalgia]Onset: 662349-16-5431 EpisodicSpontaneous (11 sources)Miscarriage; Translations: [Complete or unspecified spontaneous without complication]Onset: 055464-95-1092AwmpjsjsCfepyovhvnsc (6 sources)Onset: 254008-02-3013 Results Test NameValueInterpretationReference RangeFacilityALL FOLLICLE STIMULATING HORMONEon 49-78-3193VGV0.7. mIU/mLNOMS HealthcareComment on above:Adult Female Range Follicular phase 3.5 - 12.5 Ovulation phase 4.7 - 21.5 Luteal phase 1.7 - 7.7 Postmenopausal 25.8 - 134.8 Performed at: [address] [id number] Distribution A Class Lineman: Kai Schuster PhD, Phone: [phone] ALL LUTEINIZING HORMONEon 42-62-8104VHLIUOLAPUQ HORMONE(LH)11.6. mIU/mLNOMS HealthcareComment on above:Adult Female Range Follicular phase 2.4 - 12.6 Ovulation phase 14.0 - 95.6 Luteal phase 1.0 - 11.4 Postmenopausal 7.7 - 58.5 No Panel Informationon 84-51-2901DFUNJPZQJJAUR HealthcareALL THYROXINE (T4) FREE on 04-24-9733Krbq T4 [Mass/Vol]0.97 ng/dL0.76 - 1.46 ng/dLNOCox Branson CLINISYNCNOTN HealthcareMLR HEMOGLOBIN A1Con 42-76-4155Jgogyoe [Mass/Vol]100 mg/dLNOCox BransonEzohamsmqnVyW1z (Bld) [Mass fraction]5.1 %4.5 - 6.2 %[facility] Comment on above:ADA RECOMMENDED LIMIT 4.0 - 6.0 ADA THERAPEUTIC TARGET < 7.0 ACTION SUGGESTED > 7.0 CLINWashington County Memorial HospitalNo Panel Informationon 08-38-0012Metlsqlbbmoqj Test COMMENT.[facility] HospitalComment on above:Test Ordered: 004553 C difficile Toxins A+B, EIAC difficile Toxins A+B, EIA Negative CB Reference Ra nge: NegativePerformed at: - [facility] [address] [id number] Director: Kai Schuster PhD, Phone: [phone] Auto (Bld) [#/Vol]on 33-04-1648Ysspbssnp (Bld) [#/Vol]Automated basophil count0.0-0.1 [facility] HospitalBasophils/100 WBC Auto (Bld)on 11-04-2024 Basophils/100 WBC (Bld)Automated basophil %0.2-2.0[facility] HospitalEosinophils/100 WBC Auto (Bld)on 60-68-6666Xrzjyeujzpu/100 WBC (Bld) Automated eosinophil %0.9-7.0[facility] HospitalErythrocyte distribution width Auto (RBC) [Ratio]on 27-94-7364Xqzsylbijpb distribution width (RBC) [Ratio]Erythrocyte distribution width [Ratio] by Automated count11.0-15.0 [facility] HospitalHematocrit Auto (Bld) [Volume fraction]on 40-72-7425Tqwvagsjbp (Bld) [Volume fraction]Hematocrit [Volume Fraction] of Blood by Automated count36.0-48.0[facility] HospitalHemoglobin [Mass/volume] in Bloodon 46-59-1328Fpxjegjpzl (Bld) [Mass/Vol]Hemoglobin [Mass/volume] in Blood12.0-16.0[facility] HospitalLaboratory - Chemistry and Chemistry - challengeon 26-18-9174Zdjrnkjek Ql (U)NegativeNEGATIVE [facility] HospitalGlucose (U) [Mass/Vol]NegativeNEGATIVESheltering Arms HospitalKetones Ql (U)15 mg/dLAbnormalNEGATIVESheltering Arms HospitalpH (U)6.0 [pH]5.0-9.0[facility] Health Systempecific gravity (U) [Rel density]1.0201.005-1.025[facility] Urobilinogen Qn (U)0.2 {Trini'U}/dL0.2-1.0[facility] Lipase [Catalytic activity/Vol]28.0 U/L16.0-77.0[facility] HospitalMagnesium [Mass/Vol]1.9 mg/dL1.8-2.4FMercy Health [facility] Laboratory - Hematology and Cell countson 00-35-4238Snxolorl granulocytes/100 WBC (Bld)0.3 %0.0-0.5FMercy Health St. [facility] HospitalLaboratory - Specimen informationon 10-36-7428Idcpcyszgh (U)CLEARCLEARFMercy Health St. Elizabeth [facility] HospitalColor (U)LT. YELLOWYELLOWSheltering Arms HospitalLaboratory - Urinalysison 44-81-5539Lcythorqp esterase Test strip Ql (U)NegativeNEGATIVE [facility] HospitalNitrite Ql (U)NegativeNEGATIVESheltering Arms HospitalProtein Ql (U)TRACE mg/dLNEG/TRACESheltering Arms HospitalLeukocytes [#/volume] corrected for nucleated erythrocytes in Blood by Automated counon 48-90-9079EUI corrected for nucl RBC Auto (Bld) [#/Vol]Leukocytes [#/volume] corrected for nucleated erythrocytes in Blood by Automated coun4.0-11.0[facility] HospitalLymphocytes Auto (Bld) [#/Vol]on 09-74-9064Mxndxkpldtz (Bld) [#/Vol]Lymphocytes [#/volume] in Blood by Automated count1.2-3.8[facility] HospitalLymphocytes/100 WBC Auto (Bld)on 48-36-8183Xwvtnprewah/100 WBC (Bld)Lymphocytes/100 leukocytes in Blood by Automated count20.5-60.0[facility] HospitalMCH Auto (RBC) [Entitic mass]on 28-49-6853XRP (RBC) [Entitic mass]MCH [Entitic mass] by Automated count26.7-34.0[facility] HospitalMCHC Auto (RBC) [Mass/Vol]on 17-84-9435FXHD (RBC) [Mass/Vol]MCHC [Mass/volume] by Automated juqyrGikm30.9-35.2FMercy Health St. Elizabeth [facility] HospitalMCV Auto (RBC) [Entitic vol] on 00-07-1622KAN (RBC) [Entitic vol]MCV [Entitic volume] by Automated count 81.0-99.0[facility] HospitalMonocytes Auto (Bld) [#/Vol]on 17-81-6245Dckzrvwoi (Bld) [#/Vol]Automated blood monocyte count0.3-0.8[facility] HospitalMonocytes/100 WBC Auto (Bld)on 47-99-7044Phuzkmeiq/100 WBC (Bld)Automated monocyte %1.7-12.0[facility] Neutrophils Auto (Bld) [#/Vol]on 41-07-8040Srbimadwtnu (Bld) [#/Vol]Neutrophils [#/volume] in Blood by Automated count1.4-6.5FMercy Health St. [facility] Neutrophils/100 WBC Auto (Bld)on 20-19-5246Nkodazjtcwe/100 WBC (Bld)Automated neutrophil %43.0-75.0[facility] HospitalNo Panel Informationon 79-75-5164Dldtx Microscopic ReviewNOSheltering Arms HospitalUrine Occult BloodNegativeNEGATIVESheltering Arms HospitalEosinophils # (Auto)0.1 10 3/uL0.0-0.7FMercy Health St. Elizabeth [facility] HospitalHuman Chorionic Gonadotropin, QualNegativeNEGATIVESheltering Arms HospitalImmature Granulocyte # (Auto)0.02 10 3/uL0.00-0.03[facility] Troponin I High Kblmybvbwsi68.3 pg/mL4.0-51.3FMercy Health St. [facility] Comment on above:CUT-OFF POINTS HAVE BEEN ESTABLISHED BASED ON THE FOURTHUNIVERSAL DEFINITION OF MYOCARDIAL INFARCTION. THE UPPERREFERENCE LIMIT (URL) OF TROPONIN, DEFINED THE 99THPERCENTILE OF cTnI DISTRIBUTION IN A REFERENCE POPULATION,HAS BEEN CONFIRMED THE DECISION THRESHOLD FOR MIDIAGNOSIS.99TH PERCENTILE = 51.4 PG/MLNOTE: HIGH-SENSITIVITY TROPONIN ASSAY IS NOT INTENDED TO BEUSED IN ISOLATION BUT SHOULD BE INTERPRETED IN CONJUNCTIONWITH OTHER DIAGNOSTIC AND CLINICAL INFORMATION.Platelet mean volume Auto (Bld) [Entitic vol]on 51-22-0114Mxddyfdl mean volume (Bld) [Entitic vol] Platelet mean volume [Entitic volume] in Blood by Automated count9.5-13.5 [facility] HospitalPlatelets Auto (Bld) [#/Vol]on 11-04-2024 Platelets (Bld) [#/Vol]Platelets [#/volume] in Blood by Automated pnyae330-151 [facility] HospitalRBC Auto (Bld) [#/Vol]on 99-23-5254ALA (Bld) [#/Vol]Erythrocytes [#/volume] in Blood by Automated count4.20-5.40[facility] HospitalLaboratory - Chemistry and Chemistry - challengeon 15-03-2983Xnzipluks Ql (U)NegativeSheltering Arms HospitalGlucose (U) [Mass/Vol]NegativeSheltering Arms HospitalKetones Ql (U)Negative [facility] HospitalpH (U)5.0 [pH][facility] Specific gravity (U) [Rel density]1.020[facility] Urobilinogen (U) [Mass/Vol]0.2 mg/dLSheltering Arms HospitalLaboratory - Specimen informationon 05-72-3783Qrsbhkaiff (U)clearSheltering Arms HospitalColor (U)yellowSheltering Arms HospitalLaboratory - Urinalysison 15-13-6614Xudjejpcx esterase Test strip Ql (U)NegativeSheltering Arms HospitalNitrite Ql (U)NegativeSheltering Arms HospitalProtein Ql (U)+++[facility] HospitalNo Panel Informationon 09-28-2682Hzeke Occult BloodNegativeSheltering Arms HospitalANES POSTPROC EVALon 83-03-7246IGQP POSTPROC EVALHNO ID: [id number] Author: MERRICK MELLO APRN.DRUG COORDINATOR Service: ? Author Type: Nurse Advertising Intern Type: Anesthesia Postprocedure Evaluation Filed: 09/03/2024 10:48 Note Text: POST ANESTHESIA EVALUATION NOTE : 2000 Procedure Summary Date: 09/03/24 Room / Location: [facility] Anesthesia Start: 1026 Anesthesia Stop: 1043 Procedure: COLONOSCOPY DIAGNOSTIC Diagnosis: Generalized abdominal pain Change in bowel habits (Generalized abdominal pain) (Diarrhea) (Change in bowel habits) Scheduled Providers: Dara Butler Jr., DO; Merrick Mello APRN.CRNA; Karla Ball, RN Responsible Provider: Merrick Mello APRN.CRNA Anesthesia [...] September 03, 2024 TIME: 10:47 AM CSN: [id number] Hospital PRE-OPon 45-36-5341FMNB PRE-OPHNO ID: [id number] Author: MERRICK MELLO APRN.CRNA Service: ? Author Type: Nurse Advertising Intern Type: Anesthesia Preprocedure Evaluation Filed: 09/03/2024 10:18 Note Text: ANESTHESIOLOGY DAY OF SURGERY NOTE : 2000 Procedure Information Date/Time: 09/03/24 1230 Scheduled providers: Dara Butler Jr., DO; Merrick Mello APRN.DRUG COORDINATOR; Karla Ball, cigar head puncher: COLONOSCOPY DIAGNOSTIC Location: [facility] Endoscopy [facility] Estimated body mass index is 19.74 kg/m? [...] 48 hours of Surgery/Procedure. SIGNATURE: Merrick Mello APRN.DRUG COORDINATOR PATIENT NAME: Chioma Alonzo DATE: September 03, 2024 TIME: 10:18 AM CSN: [id number] Health Administration 98-04-2318JexcyxsaoesQdlolyygy ASC Gastrointestinal Endoscopy Patient Name: Chioma Alonzo Procedure Date: 09/03/2024 10:20 AM Date of : 2000 Admit Type: Outpatient Age: 23 Gender: Female Note Status: Finalized Attending MD: Dara Butler Jr, DO, [id number] Procedure: Colonoscopy Indications: Generalized abdominal pain, Diarrhea, [...] the patient. Procedure Code(s): --- Professional --- 34319, Colonoscopy, flexible; with biopsy, single or multiple Diagnosis Code(s): --- Professional --- R10.84, Generalized abdominal pain R19.7, Diarrhea, unspecified R19.4, Change in bowel habit CPT copyright 2020 [employer]. All rights reserved. The codes documented in this report are preliminary and upon stamp classifier review may be revised to meet current compliance requirements. Attending Participation: I personally performed the entire procedure. MD Dara Egan Jr, DO 09/03/2024 10:46:48 AM This report has been signed electronically by Dara Butler Jr, DO Number of Addenda: 0 Note Initiated On: 09/03/2024 10:20 AM Procedure Start: 10:28:48 AM Procedure End: 10:42:27 AMNormalSelect Medical Specialty [facility], Inc sigmoidoscopy studyon 10-59-9597Omklgehzw ASC Gastrointestinal Endoscopy Patient Name: Chioma Alonzo Procedure Date: 09/03/2024 10:20 AM Date of : 2000 Admit Type: Outpatient Age: 23 Gender: Female Note Status: Finalized Attending MD: Dara Butler Jr, DO, [id number] Procedure: Colonoscopy Indications: Generalized abdominal pain, Diarrhea, [...] the patient. Procedure Code(s): --- Professional --- 90280, Colonoscopy, flexible; with biopsy, single or multiple Diagnosis Code(s): --- Professional --- R10.84, Generalized abdominal pain R19.7, Diarrhea, unspecified R19.4, Change in bowel habit CPT copyright 2020 [employer]. All rights reserved. The codes documented in this report are preliminary and upon stamp classifier review may be revised to meet current compliance requirements. Attending Participation: I personally performed the entire procedure. MD Dara Egan Jr, DO (more content not included)...PROVATIONSt. Mary'[facility]on CampusRadiology Study observation (narrative)[facility] PHYSICALon 41-59-4344XOCIIUE PHYSICALHNO ID: [id number] Author: DARA BUTLER JR, DO Service: Gastroenterology [...] September 03, 2024 TIME: 10:18 AM PAGER/CONTACT #:[facility] Toledo Medical CenterHORTENCIA Gutierrez 54-65-8584XEDUFNO PROGHNO ID: [id number] Author: SERA GARNER RN Service: Nursing Author [...] Signed By: Sera Garner RN In Department: [facility] WASHINGTONNoTrinity Health [facility] West CampusPathology biopsy report Ganga (Tiss)on 08-08-6087DIOP REPORTNoTrinity Health System West Campus Comment on above:Order Comment: Specimen Type: TISSUE SPECIMENOrdering Facility: [facility] Address: [address] [place], [place] [address]Result Comment: Surgical Pathology Report Case: [id number] Authorizing Provider: Dara Butler Jr., DO Collected: 09/03/2024 10:39 AM Ordering Location: [facility] Endoscopy Received: 09/03/2024 11:57 PM [facility] Pathologist: Ana Ledesma MD Specimen: Colon, Biopsy, random colon, r/o microscopic colitisPerformed By: #### 35560-4 ####[facility] LABCLIA [id number] [address] OF [facility] LABCLIA [id number] [address] OF [facility] HOSPITALFINAL DIAGNOSIS [facility] Medical CenterComment on above:Order Comment: Specimen Type: TISSUE SPECIMENOrdering Facility: [facility] Address: [address] [place], [place] [address]Result Comment: A. Colon, biopsy: - Colonic mucosa with no diagnostic abnormalities. at 1426 ESTPerformed By: #### 30187-2 ####[facility] LABCLIA [id number] [address] LABCLIA [id number] [address]ETNoPike Community Hospital on above:Order Comment: Specimen Type: TISSUE SPECIMENOrdering Facility: [facility] Address: [address] [place], [place] [address]Result Comment: Diagnostic interpretation performed at: [facility], [address] [place] [address] CLIA# [id number] Test Developer: SHAYE Schreibererformed By: #### 82023-7 ####[facility] LABCLIA [id number] [address] LABCLIA [id number] [address] on above:Order Comment: Specimen Type: TISSUE SPECIMENOrdering Facility: [facility] Address: [address] [place], [place] [address]Result Comment: A. Colon, Biopsy Received in formalin are multiple pieces of cano-brown, soft tissue aggregating to 1.8 x 0.3 x 0.2 cm. Totally submitted in one cassette. DL September 04, 2024 3:07 AM Gross examination performed at [facility], [address] [place], [place] [address]Performed By: #### 20783-9 ####[facility] LABCLIA [id number] [place] [id number] [facility] LABCLIA [id number] [address] OF AMERICAOffice Visiton 99-06-6441Vcxbdi-up [id number] Chioma Alonzo 2000 F Date Provider Department Center 07/28/2024 PAULA BASILIO [facility] No family history on file Level of Service:65363 [place] OFFICE/OUTPATIENT ESTABLISHED LOW MDM 20 MIN (GC) Reason for Visit and Comments: Follow-up [836860] - Recurrent C Diff Nausea [70] Diarrhea [35] Constipation [511624]NormalUnKettering Memorial Hospital36on Follow-up message sent to patient via Reachoo.NormalSamaritan North Health Center36on 54-54-085290Fnwhcti LVM, hx of C Diff, reports she has a UTI and wants to know if Dificid is recommended to be taken along with her UTI atb? Please advise.NormalSamaritan North Health CenterLaboratory - Chemistry and Chemistry - challengeon 69-42-3637Atkicypki Ql (U)NegativeSheltering Arms HospitalGlucose (U) [Mass/Vol]NegativeSheltering Arms HospitalKetones Ql (U)Negative [facility] HospitalpH (U)6.0 [pH][facility] Specific gravity (U) [Rel density]1.020[facility] Urobilinogen (U) [Mass/Vol]0.2 mg/dLSheltering Arms HospitalLaboratory - Specimen informationon 58-61-6368Lrdeybqyks (U)cloudySheltering Arms HospitalColor (U)YellowSheltering Arms HospitalLaboratory - Urinalysison 26-22-1994Dmovkhbxw esterase Test strip Ql (U)NegativeSheltering Arms HospitalNitrite Ql (U)NegativeSheltering Arms Hospital Protein Ql (U)NegativeSheltering Arms HospitalNo Panel Informationon 59-75-9015Tqffx Occult BloodNegativeSheltering Arms HospitalTelephoneon [id number] Chioma Alonzo 2000 F Date Provider Department Center 07/24/2024 SHYAM RUSH MP [facility] No family history on fileNormalUniversity of [facility] HospitalUrine Culture on 48-53-7691Yoygzndi identified Cx Nom (U)15,000 colonies/ml mixed bacterial skin contaminants 2 Days PERFORMED BY: [facility] [address] [facility]. [place] [id number] PATHOLOGIST WOODYARD OPERATOR DEANNE CABELLO M.D.NormalThe Highlands-Cashiers Hospital Physician GroupComment on above: Performed By: #### CUU #### [facility] [address] [place] [id number] [place]25[place])D3 [facility] 008347-zuswkwposxvtsx D3 [Mass/Vol]39.8 ng/zLGxqszd16.0-80.0on HospitalComment on above:Order Comment: Specimen Type: BLOOD SPECIMEN [facility] Address: [address] [place], [place] [address]Result Comment: Classification of 25 [place] Vitamin D status: Deficiency/Insufficiency: < or = 30 ng/ml. Sufficiency/Optimal Levels: 31-80 ng/mL Toxicity: > 100 ng/mL. Test performed by chemiluminescent immunoassay.Performed By: #### 1989-3 #### [facility] CLIA [id number] [address] [place] [address] [place] [address] [place] AMERICACNOVon 94-83-1330DJYZLbstqy Visit (GILA) CHIOMA ALONZO ([id number]) 2000 F Date Time Provider Department 07/15/24 [...] touching your toes, sit-ups, using row machine ocean transportation intermediary pain recommendations per primary care provider/pain clinic [...] Abs Lymph 1.00 - 4.00 k/uL 2.06 [place]% % 8.1 Abs [place] <0.87 k/uL 0.42 E[place]% % 4.3 Abs [...] ccp<15, irena ifa, hepatitis panel, quantiferon tb; 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 NO swelling. [...] scalp tenderness, visual changes (more content not included)...NormalOhioHealthon 31-89-7563DEEVWwzphtnml (RIOS) CHIOMA ALONZO ([id number]) 2000 F Date Time Provider Department 07/15/24 NAE IBARRA During your visit today, we recorded the following information about you: Nae Ibarra MD 07/15/2024 6:42 PM Signed Please Call patient if MyChart note not read to review results/released to My Chart if tests completed at F: normal labs. Take over the counter vitamin D 1964-3904 International Units daily with food. Happy to further review and discuss at follow up visit. Thank you. 07/15/24 normal vitamin D 39.8, vitamin b12-841; Ham ThompsonANDREW 07/17/2024 10:41 AM Signed Left message that [...] 07/15/2024 Encounter Status:Closed by HAM THOMPSON on 07/17/24NoalCUniversity Hospitals Lake West Medical CenterCobalamin (Vitamin B12) [Mass/Vol]on 05-72-1047Vfkmbiwibetnlz and review of laboratory resultsNoMercy Health St. Elizabeth [facility]stown HospitalLaboratory - Chemistry and Chemistry - challengeon 73-87-9345Iblgsrmab (Vitamin B12) [Mass/Vol]841 pg/hK091-1165EpqdzvofbUniversity Hospitals Health Systemerum or plasma calcidiol measurement (mass/volume)on 53-60-476926310083-vnlkwijlwpcgzk D3 [Mass/Vol] Serum or plasma calcidiol measurement (mass/volume)31.0-80.0S[facility] HospitalComment on above:Classification of 25 [place] Vitamin D status: Deficiency/Insufficiency: < or = 30 ng/ml.Sufficiency/Optimal Levels: 31-80 ng/mLToxicity: > 100 ng/mL. Test performed by chemiluminescent immunoassay. VITAMIN B12on 85-10-9251Ixecbdkrn (Vitamin B12) [Mass/Vol]841 pg/mL232 - 1245 pg/mLCsheltering arms hospital ClinicVit B12 SerPl-mCncon 04-60-3960Ausskxpph (Vitamin B12) [Mass/Vol]841 pg/rLIkiwcf910-6526Unwb HospitalComment on above:Order Comment: Specimen Type: BLOOD SPECIMEN Ordering Facility: [facility] Address: [address], [place] [address]Mmaollfqk By: #### [id number] #### [facility] CLIA [id number] [facility] [address] [place] OF AMERICABasophils Auto (Bld) [#/Vol]on 07-11-2024 Basophils (Bld) [#/Vol]Automated basophil count0.0-0.1FMercy Health St. [facility] HospitalBasophils/100 WBC Auto (Bld)on 73-28-6632Xcttvnrcl/100 WBC (Bld)Automated basophil %0.2-2.0[facility] HospitalEosinophils/100 WBC Auto (Bld)on 88-76-4198Uvzwepibrum/100 WBC (Bld)Automated eosinophil %0.9-7.0 [facility] HospitalErythrocyte distribution width Auto (RBC) [Ratio]on 94-89-4712Rkyjairtljx distribution width (RBC) [Ratio]Erythrocyte distribution width [Ratio] by Automated count11.0-15.0[facility] HospitalEstimated glomerular filtration rate (GFR) non- Americanon 72-86-7852AWI/1.73 sq M.predicted among non-blacks MDRD (S/P/Bld) [Vol rate/Area]Estimated glomerular filtration rate (GFR) non->=60 mL/min/1.73m 2FMercy Health St. Elizabeth [facility] HospitalGlobulin Calc (S) [Mass/Vol]on 46-42-3054Ntvloowg (S) [Mass/Vol]Serum globulin measurement by calculation (mass/volume)[facility] HospitalHCG ( test) IA.rapid Ql (U)on 59-31-7470CDK ( test) Ql (U)Urine human chorionic gonadotropin (hCG) detection by immunoassayNEGATIVESheltering Arms Hospital Hematocrit Auto (Bld) [Volume fraction]on 61-59-8179Nqgtfcdvaq (Bld) [Volume fraction]Hematocrit [Volume Fraction] of Blood by Automated count36.0-48.0 [facility] HospitalHemoglobin [Mass/volume] in Bloodon 07-11-2024 Hemoglobin (Bld) [Mass/Vol]Hemoglobin [Mass/volume] in Blood12.0-16.0[facility] HospitalLaboratory - Chemistry and Chemistry - challengeon 25-20-0742Awqtwal [Mass/Vol]4.4 g/dL3.4-5.0[facility] HospitalALP [Catalytic activity/Vol]52 U/B97-241FmmtzomrySheltering Arms HospitalALT [Catalytic activity/Vol]16 U/B32-00WztnrnmgjSheltering Arms HospitalAST [Catalytic activity/Vol]18 U/V11-30YriizddcmSheltering Arms HospitalBilirubin [Mass/Vol]0.9 mg/dL0.2-1.0[facility] HospitalCalcium [Mass/Vol]9.4 mg/dL8.5-10.1FMercy Health St. Elizabeth [facility] HospitalChloride [Moles/Vol]103 mmol/L 98-107[facility] HospitalCO2 [Moles/Vol]26.9 mmol/L21.0-32.0 [facility] HospitalCreatinine [Mass/Vol]0.80 mg/dL0.55-1.02 [facility] HospitalGFR/1.73 sq M.predicted MDRD (S/P/Bld) [Vol rate/Area]mL/min/{1.73_m2}>=60 mL/min/1.73m 2FM[address] Health [address] [facility] Glucose [Mass/Vol]97 mg/mB50-619TpluekntaSheltering Arms HospitalLipase [Catalytic activity/Vol]25.0 U/L16.0-77.0[facility] Potassium [Moles/Vol]3.8 mmol/L3.5-5.1FMercy Health St. [facility] HospitalProtein [Mass/Vol]7.9 g/dL6.4-8.2FKettering Memorial Hospitalodium [Moles/Vol]140 mmol/A511-672WpssslcjiSheltering Arms HospitalUrea nitrogen [Mass/Vol]9.0 mg/dL 7.0-18.0[facility] HospitalUrea nitrogen/Creatinine [Mass ratio] 11.2 mg/mgSheltering Arms HospitalBilirubin Ql (U)NegativeNEGATIVE [facility] HospitalGlucose (U) [Mass/Vol]NegativeNEGATIVESheltering Arms HospitalKetones Ql (U)TRACE mg/dLAbnormalNEGATIVESheltering Arms HospitalpH (U)6.0 [pH]5.0-9.0[facility] Specific gravity (U) [Rel density]1.0251.005-1.025S[facility] HospitalUrobilinogen Qn (U)0.2 {Trini'U}/dL0.2-1.0[facility] HospitalLaboratory - Hematology and Cell countson 67-56-3800Nvtsgtth granulocytes/100 WBC (Bld)0.2 %0.0-0.5FMercy Health St. [facility] Hospital Laboratory - Specimen informationon 26-34-6906Bdpgbozhep (U)CLEARCLEARFMercy Health St. Elizabeth Youngstown HospitalColor (U)LT. YELLOWYELLOWSheltering Arms HospitalLaboratory - Urinalysison 82-71-1354Fbcovuwjw esterase Test strip Ql (U) NegativeNEGATIVESheltering Arms HospitalNitrite Ql (U)NegativeNEGATIVE [facility] HospitalProtein Ql (U)TRACE mg/dLNEG/TRACESheltering Arms HospitalLeukocytes [#/volume] corrected for nucleated erythrocytes in Blood by Automated counon 09-28-9564NMX corrected for nucl RBC Auto (Bld) [#/Vol]Leukocytes [#/volume] corrected for nucleated erythrocytes in Blood by Automated coun4.0-11.0[facility] HospitalLymphocytes Auto (Bld) [#/Vol]on 81-72-8818Ncauhuvhghs (Bld) [#/Vol]Lymphocytes [#/volume] in Blood by Automated count1.2-3.8[facility] HospitalLymphocytes/100 WBC Auto (Bld)on 59-78-9652Sknqmnllxnr/100 WBC (Bld)Lymphocytes/100 leukocytes in Blood by Automated count20.5-60.0[facility] HospitalH Auto (RBC) [Entitic mass]on 21-78-3346NQJ (RBC) [Entitic mass]MCH [Entitic mass] by Automated count26.7-34.0[facility] HospitalMCHC Auto (RBC) [Mass/Vol]on 05-13-2743XRSE (RBC) [Mass/Vol]MCHC [Mass/volume] by Automated count29.9-35.2FMercy Health St. Elizabeth Youngstown HospitalMCV Auto (RBC) [Entitic vol]on 41-24-3447ZOR (RBC) [Entitic vol]MCV [Entitic volume] by Automated count 81.0-99.0[facility] HospitalMonocytes Auto (Bld) [#/Vol]on 06-95-1247Xfijbdhhd (Bld) [#/Vol]Automated blood monocyte count0.3-0.8[facility] CenterMonocytes/100 WBC Auto (Bld)on 23-93-5251Meopyxyaw/100 WBC (Bld)Automated monocyte %1.7-12.0[facility] Neutrophils Auto (Bld) [#/Vol]on 26-42-7719Hhaghtpfdtz (Bld) [#/Vol]Neutrophils [#/volume] in Blood by Automated count1.4-6.5FMercy Health St. [facility] Hospital Neutrophils/100 WBC Auto (Bld)on 51-14-7663Vwolhxrfogl/100 WBC (Bld)Automated neutrophil %Low43.0-75.0[facility] HospitalNo Panel Informationon 04-66-2081Ukoviwwsqet # (Auto)0.3 10 3/uL0.0-0.7FMercy Health St. Elizabeth [facility] HospitalImmature Granulocyte # (Auto)0.01 10 3/uL0.00-0.03[facility] HospitalUrine Microscopic ReviewNOSheltering Arms HospitalUrine Occult BloodNegativeNEGATIVESheltering Arms HospitalPlatelet mean volume Auto (Bld) [Entitic vol]on 26-97-1204Ajbtoanx mean volume (Bld) [Entitic vol]Platelet mean volume [Entitic volume] in Blood by Automated count9.5-13.5 [facility] HospitalPlatelets Auto (Bld) [#/Vol]on 07-11-2024 Platelets (Bld) [#/Vol]Platelets [#/volume] in Blood by Automated sjiil083-222 [facility] HospitalRBC Auto (Bld) [#/Vol]on 65-63-7019FEB (Bld) [#/Vol]Erythrocytes [#/volume] in Blood by Automated count4.20-5.40[facility]als Health Systemerum or plasma albumin/globulin mass ratioon 07-11-2024 Albumin/Globulin [Mass ratio]Serum or plasma albumin/globulin mass ratio [facility] Health Systemerum or plasma anion gap determinationon 22-71-5614Ckdiv gap [Moles/Vol]Serum or plasma anion gap determinationSheltering Arms HospitalNo Panel Informationon 08-95-0005Tqlgtywcbjn difficile (PCR)(LAB)PositiveSheltering Arms HospitalComment on above:RESULTS CALLED TO KIMMY OLGUIN AT OFFICE BY Allyssa Valdes at [address] [facility] TestCOMMENT.[facility] HospitalComment on above:Test Ordered: 220018 C difficile Toxins A+B, EIAC difficile Toxins A+B, EIA Negative CB Reference Range: NegativePerformed at: CB - [facility] [id number] [place], [place] [id number] Director: Kai Schuster PhD, Phone: [phone] Panel Informationon 56-09-8728Yavlj Chorionic Gonadotropin, Quant<1 mIU/mL [facility] HospitalComment on above:5-50 0.2-1 LJIX60-961 1-2 WFURJ751-0,000 2-3 LBAEH743-02,000 3-4 WEEKS1,000-50,000 4-5 WEEKS10,000-100,000 5-6 WEEKS15,000-200,000 6-8 WEEKS10,000-100,000 2-3 MONTHSTBH PREG QUANT HCGon 46-93-3883BWC QUANTITATIVE<1mIU/mLNOMS HealthcareComment on above:5-50 0.2-1 WEEK 50-500 1-2 WEEKS 100-5,000 2-3 WEEKS 500-10,000 3-4 WEEKS 1,000-50,000 4-5 WEEKS 10,000-100,000 5-6 WEEKS 15,000-200,000 6-8 WEEKS 10,000-100,000 2-3 MONTHS CLINISYNCNOMS HealthcareCNPNon 59-90-4543TRCAOnwyvjlon ([facility]) CHIOMA ALONZO ([id number]) 2000 F Date Time Provider Department 07/03/24 JAY THOMPSON [facility] During your visit today, we recorded the following information about you: Jorge Oropeza 07/03/2024 9:27 AM Addendum BLOCK CELIAC PLEXUS WITH C-ARM needs rescheduled. Please reach out to her to reschedule this. Shu Wilkins 07/07/2024 2:25 PM Signed BLOCK CELIAC PLEXUS WITH C-ARM CHIOMA ALONZO [id number] DESMOND HUFFMAN 07/21 -THINNERS -DM Patient was made aware that the ASC will call the day prior to scheduled procedure between the hours of 12 and 4 pm to advise patient of arrival time the day of procedure. Patient was advised that they will require a hyster driver on the day of their procedure, [...] Dr. Huffman from 07/04 to 07/21 in [place] per patient request. Shu Wilkins 07/08/2024 9:12 [...] Reason for Visit: Appointment [186] Schedule Injection [4846] Prescriptions as of 07/08/2024 - gabapentin (NEURONTIN) [...] 11/15/2023 Encounter Status:Closed by JORGE OROPEZA on 07/03/24[facility] Panel Informationon 61-37-8322Cndy of biopsy: tangential Informed consent: discussed and [...] taken yes Amount of lidocaine used: 0.4 [facility] [employer] CorporationNo Panel InformationOrdered By: Kayla Griffith on 73-48-0657ZNTE [employer] CorporationNo Panel Informationon 06-30-2024 Human Chorionic Gonadotropin, Quant8 mIU/mLSheltering Arms Hospital Comment on above:5-50 0.2-1 TZCS80-758 1-2 HVJFD179-3,000 2-3 NPKUZ766-96,000 3- 4 WEEKS1,000-50,000 4-5 WEEKS10,000-100,000 5-6 WEEKS15,000-200,000 6-8 WEEKS10,000-100,000 2-3 MONTHSBasophils Auto (Bld) [#/Vol]on 45-94-1956Jyvavbmuf (Bld) [#/Vol]Automated basophil count0.0-0.1FMercy Health St. [facility] Basophils/100 WBC Auto (Bld)on 71-13-1126Dotkamyen/100 WBC (Bld)Automated basophil %0.2-2.0[facility] HospitalEosinophils/100 WBC Auto (Bld) on 89-80-8677Bjdgxbwrfwq/100 WBC (Bld)Automated eosinophil %0.9-7.0[facility] HospitalErythrocyte distribution width Auto (RBC) [Ratio]on 54-76-4002Tqanpxhstqe distribution width (RBC) [Ratio]Erythrocyte distribution width [Ratio] by Automated count11.0-15.0[facility] Estimated glomerular filtration rate (GFR) non- Americanon 06-25-2024 GFR/1.73 sq M.predicted among non-blacks MDRD (S/P/Bld) [Vol rate/Area]Estimated glomerular filtration rate (GFR) non->=60 mL/min/1.73m 2 [facility] HospitalGlobulin Calc (S) [Mass/Vol]on 06-25-2024 Globulin (S) [Mass/Vol]Serum globulin measurement by calculation (mass/volume) [facility] HospitalHematocrit Auto (Bld) [Volume fraction]on 92-06-6135Vhyegideey (Bld) [Volume fraction]Hematocrit [Volume Fraction] of Blood by Automated count36.0-48.0[facility] HospitalHemoglobin [Mass/volume] in Bloodon 35-08-2071Gmxpeogkyz (Bld) [Mass/Vol]Hemoglobin [Mass/volume] in Blood12.0-16.0[facility] HospitalLaboratory - Chemistry and Chemistry - challengeon 51-15-6954Ozvrqqb [Mass/Vol]4.1 g/dL 3.4-5.0[facility] HospitalALP [Catalytic activity/Vol]50 U/L46-116 [facility] HospitalALT [Catalytic activity/Vol]14 U/L14-59 [facility] HospitalAST [Catalytic activity/Vol]10 U/NDzv59-01 [facility] HospitalBilirubin [Mass/Vol]1.1 mg/dLHigh0.2-1.0 [facility] HospitalCalcium [Mass/Vol]9.3 mg/dL8.5-10.1FMercy Health St. [facility] HospitalChloride [Moles/Vol]105 mmol/W31-490WxqzbggqwSheltering Arms HospitalCO2 [Moles/Vol]24.5 mmol/L21.0-32.0[facility] HospitalCreatinine [Mass/Vol]0.73 mg/dL0.55-1.02[facility] GFR/1.73 sq M.predicted MDRD (S/P/Bld) [Vol rate/Area]mL/min/{1.73_m2}>=60 mL/min/1.73m 2FM[address] Health St[address] Elizabeth [facility] HospitalGlucose [Mass/Vol]103 mg/nI95-852 [facility] HospitalPotassium [Moles/Vol]4.1 mmol/L3.5-5.1FMercy Health St. [facility] HospitalProtein [Mass/Vol]7.3 g/dL6.4-8.2FKettering Memorial Hospitalodium [Moles/Vol]139 mmol/R107-827DmicewqlpSheltering Arms HospitalUrea nitrogen [Mass/Vol]12.0 mg/dL7.0-18.0[facility] HospitalUrea nitrogen/Creatinine [Mass ratio]16.4 mg/mgSheltering Arms HospitalBilirubin Ql (U)NegativeNEGATIVESheltering Arms HospitalGlucose (U) [Mass/Vol]NegativeNEGATIVESheltering Arms HospitalKetones Ql (U)15 mg/dLAbnormalNEGATIVESheltering Arms HospitalpH (U)5.5 [pH]5.0-9.0 [facility]als Health Systempecific gravity (U) [Rel density]>=1.030 Abnormal1.005-1.025[facility] HospitalUrobilinogen Qn (U)0.2 {Trini'U}/dL0.2-1.0[facility] HospitalLaboratory - Hematology and Cell countson 30-18-5389Lrjxirfq granulocytes/100 WBC (Bld)0.3 %0.0-0.5 [facility] HospitalLaboratory - Specimen informationon 06-25-2024 Appearance (U)CLEARCLEARFMercy Health St. Elizabeth [facility] HospitalColor (U)YELLOWYELLOW [facility] HospitalLaboratory - Urinalysison 65-81-5451Oixkiwoeo esterase Test strip Ql (U)NegativeNEGATIVESheltering Arms HospitalMucus Ql (Urine sed)MODERATEAbnormalNONE SEENSheltering Arms HospitalNitrite Ql (U)NegativeNEGATIVESheltering Arms HospitalProtein Ql (U)30 mg/dL AbnormalNEG/TRACESheltering Arms HospitalLeukocytes [#/volume] corrected for nucleated erythrocytes in Blood by Automated counon 57-67-9868CSX corrected for nucl RBC Auto (Bld) [#/Vol]Leukocytes [#/volume] corrected for nucleated erythrocytes in Blood by Automated coun4.0-11.0[facility] HospitalLymphocytes Auto (Bld) [#/Vol]on 43-67-2972Qaptsosmrlf (Bld) [#/Vol]Lymphocytes [#/volume] in Blood by Automated count1.2-3.8[facility] HospitalLymphocytes/100 WBC Auto (Bld)on 06-25-2024 Lymphocytes/100 WBC (Bld)Lymphocytes/100 leukocytes in Blood by Automated count Low20.5-60.0[facility] HospitalH Auto (RBC) [Entitic mass]on 38-57-7792KMK (RBC) [Entitic mass]MCH [Entitic mass] by Automated count26.7-34.0 [facility] HospitalMCHC Auto (RBC) [Mass/Vol]on 13-07-1617CSOE (RBC) [Mass/Vol]MCHC [Mass/volume] by Automated count29.9-35.2FMercy Health St. Elizabeth [facility] HospitalMCV Auto (RBC) [Entitic vol]on 34-18-2170VYB (RBC) [Entitic vol] MCV [Entitic volume] by Automated count81.0-99.0[facility] HospitalMonocytes Auto (Bld) [#/Vol]on 30-31-5830Inoqpvbzq (Bld) [#/Vol]Automated blood monocyte count0.3-0.8[facility] HospitalMonocytes/100 WBC Auto (Bld)on 39-14-8883Vkqybzdho/100 WBC (Bld)Automated monocyte %1.7-12.0 [facility] HospitalNeutrophils Auto (Bld) [#/Vol]on 06-25-2024 Neutrophils (Bld) [#/Vol]Neutrophils [#/volume] in Blood by Automated count 1.4-6.5FMercy Health St. Elizabeth [facility] HospitalNeutrophils/100 WBC Auto (Bld)on 29-29-1603Mqmwnnmmagh/100 WBC (Bld)Automated neutrophil %43.0-75.0[facility] HospitalNo Panel Informationon 75-49-3943Dfxzwazynxl # (Auto)0.2 10 3/uL0.0-0.7FMercy Health St. Elizabeth [facility] HospitalHuman Chorionic Gonadotropin, Quant32 mIU/mLSheltering Arms HospitalComment on above:5-50 0.2-1 SOIB11-953 1-2 IIGOH491-9,000 2-3 AWAGP876-70,000 3-4 WEEKS1,000-50,000 4-5 WEEKS10,000-100,000 5-6 WEEKS15,000-200,000 6-8 WEEKS10,000-100,000 2-3 MONTHS Immature Granulocyte # (Auto)0.02 10 3/uL0.00-0.03[facility] HospitalUrine BacteriaTRACE #/HPFAbnormalNONE [facility] Medical CenterUrine Culture ReflexedNOSheltering Arms HospitalUrine Microscopic ReviewYEPremier HealthUrine Occult BloodNegativeNEGATIVE [facility] HospitalUrine RBCNONE SEEN #/HPF0-2FMercy Health St. Elizabeth [facility] HospitalUrine Squamous Epithelial CellsMODERATE #/LPFAbnormalNONE/RARE [facility] HospitalUrine WBCNONE SEEN #/HPFNONE [facility] Medical CenterPlatelet mean volume Auto (Bld) [Entitic vol]on 83-00-8078Htwppmkv mean volume (Bld) [Entitic vol]Platelet mean volume [Entitic volume] in Blood by Automated count9.5-13.5FMercy Health St. [facility] Hospital Platelets Auto (Bld) [#/Vol]on 73-17-9331Cmtqfqhkc (Bld) [#/Vol]Platelets [#/volume] in Blood by Automated -187LlwjvzwhoSheltering Arms Hospital RBC Auto (Bld) [#/Vol]on 55-30-5609RRI (Bld) [#/Vol]Erythrocytes [#/volume] in Blood by Automated count4.20-5.40[facility] Hospitals Health Systemerum or plasma albumin/globulin mass ratioon 97-85-9378Euqxmwt/Globulin [Mass ratio] Serum or plasma albumin/globulin mass ratioSheltering Arms Hospital Serum or plasma anion gap determinationon 96-48-0295Ntqbj gap [Moles/Vol]Serum or plasma anion gap determinationSheltering Arms HospitalCNPNon 79-99-7870YSMMFqixcvsgo (INMAVN) CHIOMA ALONZO ([id number]) 2000 F Date Time Provider Department 06/23/24 THO HUFFMAN INRICHAR During your visit today, we recorded the [...] 11/15/2023 Encounter Status:Closed by BONNY JOYNER on 06/23/24[facility] CenterCNrozina 43-32-3431CVBHUrpwraogj (ORLORA) CHIOMA ALONZO ([id number]) 2000 F Date Time Provider Department 05/14/24 [...] 11/15/2023 Encounter Status:Closed by SHU WILKINS on 05/14/24[facility] CenterANATelephone (ORALEXIAA) CHIOMA ALONZO N ([id number]) 2000 F Date Time Provider Department 05/14/24 THO HUFFMAN During your visit today, we recorded the following information about you: Shu Wilkins 05/14/2024 1:48 PM Signed diagnostic celiac plexus blockade CHIOMA ALONZO [id number] BHARATHI 07/04 -THINNERS -DM Patient was made aware that the ASC will call the day prior to scheduled procedure between the hours of 12 and 4 pm to advise patient of arrival time the day of procedure. Patient was advised that they will require a hyster driver on the day of their procedure, [...] neuritis [M79.2] Order(s):SURGICAL REQUEST - ELECTIVE (02/2020) [[id number]] Order #: [id number]: 1 Prescriptions as of 05/14/2024 - gabapentin [...] 11/15/2023 Encounter Status:Closed by SHU WILKINS on 05/14/24[facility] 81-00-1535TCCVZognbb Visit ([facility]) CHIOMA ALONZO ([id number]) 2000 F Date Time Provider Department 04/30/24 11:00 AM PAULA PRETTY [facility] During your visit today, we recorded [...] to display No d (more content not included)...NormalCity Hospitalgical pathology studyOrdered By: Diego Syed on 13-77-2746Fgfrlhpafc comment Ganga (Report) j9yfpDKiCELgj6grRTEtdGPoUxMmAvYyMoJoOixmmIMwDNlivpUoOEwlp5UyT4LvPgUvLAyxpzSaEHAs LclkncwuHGAwZIO6efIx OLHpCPctTHLcBZhoQk6eyALhjYufWaSyQAHaw4yeddVQPXnrWLXYJOt6f5wzMFYrHqS0oJDrIBtuM8wv qxFehKWjD7Avh1FxVQl6 fP93UAEwzE7ipEHrLGngcrCaPkB3QXiaQFLzClM0UDIjkQYsZWJtT7ypRRUcYCyeJPLmJZbkzDNqHQX5 zYtwy3G3vQJsjRCbwSst JsWkVjPyZaTVs9WeJQh5eCnwE0GeKYJxSmF8cZFjHLAfLWubMDGhSPCaaaQ2bZ39VGvshpM1lPPfb5Ne p63xt804fZ9stOVmBUO1 ZOXbMFJbeRCmSWIqFFO8UOVelBJpP5fgNxZscVAvB6BaNjKbbRFwY5OoZrIhqGIbC2WzUaDznKXbAMHv iAC2NKuiq688URC4VoJt KU3vY4Xnw7E6sB6phROvOTHbeSZiQqRvMGGkti9maSEtFNfdr8BzEKE9nrK7rMStuHEqRLSrQX88Qvtv s7MmWycbNDD9GSHwthIx y8Kge0svGwVnuoTmK6ofM2ArXGBvOZStEHQdMgGrmlHul1Shq5WjvLUlxHn7k5gdSYVcGABsuDtkz5ep MQL6JNMiE9C9cHYyy9co RDrpPXWcqGV2azZ9FLoyKIGvwrP4uwK1XOrlJHImqHI0vgL8EHpbOJNoHsX8rzK2FTngCOSlKYY3ApLb ROHwi0HegsyxGkUlb3Bf xGCqYXvhR90pi408EJPwgaJzV7axmQDycdjwfRVacgfuSRnajfT3TYSeKJKzDNyzNJSnMPHkAfSqxDFq ZzEwMzNcaGljaFxmMVxk AbWpYEDsDNczQ0hwFsEyMjEiHTWKuMS6xNYga5kbvtA7cHTgGZ6wDKUtmJKafmNct6Z8NOS9aRUgaY2y iEZnOQMjoNLdltHxec68 zVLunUZ9STDhYIPrvRRewX7iDMCyUCTOyC5fnFSYtsNtplPmVSPwiUohso6PrUBcdh3icOYmR9UatSbe uNZuOZWeBEVkaWmloUTwBNVvVBHetibvp5DwYAMygGQaO1JjER0vQTTupe14Bwuamnildq [facility] Work Phone: Pathology report Cancer NarrativeSurgical Pathology Case: [id number] Authorizing Provider: Whitney Ambriz MD MPH Collected: 04/16/2024 1012 Ordering Location: [facility] Received: 04/17/2024 0929 Center Pathologist: Diego Syed MD PhD Specimens: A) - DUODENUM SECOND PART BIOPSY, Cold Bx B) - ANTRUM BODY BIOPSY, Evaluate for H pylori and Gastritis [facility] Work Phone: Pathology report final diagnosis Narrative j8vyuENrNJKwoQDpBCbcBfpkpqBdVVEgjGGkS6IzsvpdPRazRX3eCA2tkIxakWUkpYOdODTtNiTon9vl p324aZMar4qkPOHPpeij rVk6bLtgD05yz6O5IpihP3arJVKrZRviULIgWFwzwWMbYBy2BJNubZPvwrMtAhCoTFGeuCWtiDW5RICq IT2mdntsZZsqBNjnAJYi faC4EXJirRReT2GgLWHxWA6xoruoHBT8IMgqAOUfICF4FeVsLDHgg9Dbxxz8TaBizDe9r7snSYDrYADu lGsbe8fwCGR6OBRvaMHv L3ltxF4gQDDgAS3iinnti2dvIKvhMZzvUGRkhPC5fgR5RVYfgAPmE3NxqK3qQFRaXTNeiaMrxDbnvK8h YlkvydGdEDSdWEZ0k3Cy rnWwTMRFXXNvblIiSQHjyUqdNtjlwWU8MsomVHEmMXQcorIyUEEGc5ZsTYvqDCMkUFPeQFljwCGcc5Cf LiBObyBpbnRyYWVwaXRo ZSgnGLewbZgtuHatO0g0x5Pmjb3kTk6bnLNrFSTssYtksWNcZVUavZd0HAX7cAIvHvinAUYgbJWnWGXn Tv6nV6ClzDWimGepIH80 cvLgCDChYREXo5N6IZQXqQ5qv5z2IPOcAWUvpUSwPMFukrUbF7OeUA0cKWzkQlHrJYVivhNzrNjibbNw OX17J57xNTH2kLHpSANn CT7vG1NnEWhgx8VidGMceqYzww6es6Swat8rNPPqWVIpgIohiB8grKYujQF1b1V2RCAgtFgyJYQxoJcv GROfMpg7jYkeJNUlLjiw BJWmmeIyDTMSfgYMHOvzI24mSEE6RQYmcSvnj9UhXO1gT1IkhLIxeoJxseEpqLHgqyJbDbubAY4mrJVg XHBhcn0=[facility] Work Phone: Pathology report gross observation Narrative e1tkpIIoLYKnuQNtVGhzMwmivaJrYPLogSKdM4NpbtaaLSxzFS9aQV2mpJdziQPceBMhNCQoYcTno7ap g306gTKnn0liECQStqaj nQk2wIowY10hc9K7RafdU64ibSVmJNZ6FIRaMWCfiCTvNTEeBON2LAPszDRiT5xwZGFaHB0nsvhwWDxl INflOOVnnAD4LCDjwOQw A1ZeNXIzYQrdVZGizum9ImKfYu2mrFCgqNdjHVzzPsvyqSpfn2SrnLVtJTjjAKHiCSUsIFydwpuhLYx2 TXFaLSopiOItQN5wgGza JedubIygf5OwpWOkFEvsNNVsHTZvXTpxOUEvT3GKPJIaTJn9ZOM6TfTiSMu8VSh3RU6ZPqOkHJGaApl1 NYW4NwHkXCd3TMarXN7W DTMxSuG5YLC7ExxwGIN0BrRvWKgcaWNcNJEzIhChIHSbUUJsKIcskTPkBR8uzZmpZAGhBIUrCbVjZBSm D7ukNrUyNEVtBTmsXIVb ZfLoMPitSzSrUYj5AQOwsQ8iFg3lrTImyJ0pBSgbNiFrKORqu1i0fEC5qIAcqAO9bSJisVyoVE5ntPDo BU4iCJpdq5QirNRwLX63 nIKjohTwkzPrBjRTy0tnLJTCFyacLSOjTJX2lyTslwOuvQYgmZWkz7KghICeHKSqq1U1ZXCdo1D2AMCy E8nfQFacyOdnGwG3rtKk UI29ALqoLD3qLEahHJ4vBPEvGmUYuIYzz5LcF7xiGK4njAZrc1IcuCj0fGJtHQqbHMAgsR7ltW4ae46t SRZgt8ZvjXZfMwwzUBAz uWGqEXZTNZTxXvYVNTLmuucpMNHfTMKnjFIHw5LeJZzzUUOsA3KvC4DyeaP1SBPjudqmYodvnLusd5Pr dCBcXGlkIDUxMDAyIFxc HLCbN8PAPZNmBUx8DMP4OxBsQHg6NEx5BW2SDqSeSMAyJrq8CIP5TqGrPXd5EMgoFO5YRYCvUbQ1TZY3 HECgUSG2FnImSRpdaGLa BEAsBiBqEVTzTBByCFnmwPCpQG6kwYhaOOHhRWHcQBN0MNCqmTOJa4FhUqHmiXnmfV6yGmOhIBWCQrGO GSPugMOrPMDuzvOga2Sm KRsljfexwIQaSIktGWL5zOGeBKKoBAZeJOUkXM58E1UyppEgMAMvyzFymK9ntEe3VBubqbCnSvNtUWBq TPIsNHIkyHVgeVKsGe9k ICmcNSO6cH8okQKezvDzeS7iVBNwhwCroIfoFQFjAUarMK39wrKcUlL3JI0zKIQoUuFmzQguf1HyGPGs F9JsF0X5rA4aTAPyAOTd RcQebWPyVvNrgFZwXaLzB58sXYOoKCChrPNxcR7rngDshxSykTDoxRM7JPMrmQ2mqR93zeWsvxBrctIb A9Qzg5N0iWOdYIOjuzjm PIInXEOOJj1XY0AvhNFzAKWeFeXlYQXgG3vrYACnKCY8KUTljCNgXIR6CV2pmBweMCTsD5OjA9IoagG6 XHBhcn0=[facility] Work Phone: Pathology report relevant history Narrative y3qifOFqNBUydXNcZImuPfvypmZjABPmdATqU3TblosnNVulLB8vMZ2iiQdfdOHwyLFcOYUjEpHjo4ya s726oCWjl1puKTOCoidc wUj3vBrcI57jh8K4SnqrT55nmGKyIMQ8IMElEFQjbTWlZHIqSJX4WVHvzTKwW5tbUYBtCX0xdhztPAoy JDxrQSFqrJM8COYatVAx L0QvTJYoHPeyGRUbmow9WqZgTk2edLMquMuaPTopHRQuBVNkXZeaYGWdTtEcGUGqiGUtFRRoE7BjgCBi xLeuSY2ehsTtz2shVBLo sYZpZRXRYk3TB7SmXEjOCcvfOS0hwOZiCWEjDDJ2MTb2BPQsNJSipfGRDIekGVBxVOsqCWEzDMhmZKNx BqgaQSYjyAObeVUwYk8nKAdgv8YbhMDxscXfnoFjTI9QcUtjfselcQOoeK==Ordbpgxozv [facility] Work Phone: [facility] Work [facility]: [facility] [phone] (GASTNO) CHIOMA ALONZO ([id number]) 2000 F Date Time Provider Department 04/24/24 [...] 11/15/2023 Encounter Status:Closed by GISELA PONCE on 04/24/24[facility] Study observation Narrativeon [id number] formatting from the original result was not included. Impression [...] SECOND PART BIOPSY SURGICAL PATHOLOGY EXAM Whitney Amrbiz MD MPH 04/16/2024 1012 2 : Evaluate for H pylori and Gastritis Tissue ANTRUM BODY BIOPSY SURGICAL PATHOLOGY EXAM Whitney Ambriz MD MPH 04/16/2024 1016 Procedure Location [facility] [address] [facility] [address] Referring Provider Whitney Ambriz MD MPH Procedure Provider Whitney Ambriz MD MPH [facility] Work Phone: Radiology Study observation (narrative)[facility] Work Phone: EGD Study observation NarrativeOrdered By: Whitney Ambriz on [id number] Citizens Hospital Work Phone: hcg ( test) Ql (U)on [id number] and review of laboratory resultsNormalUniC[facility] Work Phone: Pref Test, UrNegativeNegativeUnBarberton Citizens Hospital Work Phone: [facility] Work Phone: CNOVon [id number] Visit ([facility]) CHIOMA ALONZO ([id number]) 2000 F Date Time Provider Department 03/26/24 11:00 AM PAULA PRETTY [facility] During your visit today, we recorded [...] 11/15/2023 Encounter Status:Closed by PAULA PRETTY on 03/26/24NormalCblanchard valley health systemand Ashe Memorial HospitalNo Panel Informationon 88-37-6432Wwqguzptt [facility] diff Tox gens Stl Ql RUCHI+probeon 03-13-2024. difficile toxin genes RUCHI+probe Ql (Stl)NegativeNormal Negative for C. difficile toxin by PCROhiohealth Van Wert HospitalComment on above:Order Comment: Specimen Type: STOOL SPECIMENOrdering Facility: [facility] Address:[address] [place], [place] [address]Performed By: #### 29656-4 ####[facility] LABCLIA [id number] [place] [address] [place] AMER[place]. DIFFICILE PCRon 03-13-2024. difficile toxin genes RUCHI+probe Ql (Stl)NegativeNegative for C. difficile toxin by PCRSelect Medical Specialty Hospital - [place]. difficile toxin genes RUCHI+probe Ql (Stl)on 20-59-3536Hkkmhhxrgimoiq and review of laboratory resultsNormalCleveland Regency Hospital CompanyCNOVon 16-31-9695EHJKGqfoqx Visit (GGENMN) CHIOMA ALONZO ([id number]) 2000 F Date Time Provider Department 02/26/24 [...] HISTORY No date: COLONOSCOPY (more content not included)...NormalOhio Valley Surgical Hospital Gastrointestinal tract upper Views W barium contrast Aime 22-17-4692MRLUUSFZEL: Mild gastroesophageal reflux and mild esophageal dysmotility. Otherwise, unremarkable upper GI series. Oracle Consultant: FRANCISCO Transcribe Date/Time: Feb 11 2024 11:34A Dictated by : ANJALI HALEY MD This examination was interpreted and the report reviewed and electronically signed by: ANJALI HALEY MD on Feb 11 2024 4:03PM [facility]* * *Final Report* * * DATE OF [...] somewhat limited assessment of the gastric cardia/fundus. [place] RADIOLOGYProvider, f Imaging [place] - 02/11/2024 * * *Final Report* * [...] esophageal dysmotility. Otherwise, unremarkable upper GI series. [employer] Consultant: FRANCISCO Transcribe Date/Time: Feb 11 2024 11:34A Dictated by : ANJALI HALEY MD This examination was interpreted and the report reviewed and electronically signed by: ANJALI HALEY MD on Feb 11 2024 4:03PM EST [facility] CampusRadiology Study observation (narrative)[facility] CampusRF Gastrointestinal tract upper Views W barium contrast POOrdered By: Ccf Provider on 60-50-5045Siywhyxha ClinicXR UPPER GI SINGLE CONTRASTon 70-39-7388GU UPPER GI SINGLE CONTRAST* * *Final Report* * * DATE OF [...] esophageal dysmotility. Otherwise, unremarkable upper GI series. Oracle Consultant: FRANCISCO Transcribe Date/Time: Feb 11 2024 11:34A Dictated by : ANJALI HALEY MD This examination was interpreted and the report reviewed and electronically signed by: ANJALI HALEY MD on Feb 11 2024 4:03PM EST [id number] State HospitalNM GASTRIC EMPTYING SOLIDon 86-89-4662XB GASTRIC EMPTYING SOLID* * *Final Report* * * DATE OF [...] which lowers the sensitivity of the study. Oracle Consultant: FRANCISCO Transcribe Date/Time: Jan 30 2024 2:09P Dictated by : JOSELUIS MORA MD This examination was interpreted and the report reviewed and electronically signed by: JOSELUIS MORA MD on Jan 30 2024 2:10PM [facility] [id number] River Hospital Stomach Views for gastric emptying solid phase W radionuclide Aime 27-17-2639FJASXTVJZK: Normal rate of gastric emptying of a solid meal. However patient consumed less than the standard meal, which lowers the sensitivity of the study. Oracle Consultant: FRANCISCO Transcribe Date/Time: Jan 30 2024 2:09P Dictated by : JOSELUIS MORA MD This examination was interpreted and the report reviewed and electronically signed by: JOSELUIS MORA MD on Jan 30 2024 2:10PM [facility]* * *Final Report* * * DATE OF EXAM: Jan 30 2024 1:51PM ERLINDA 0017 - NM GASTRIC EMPTYING SOLID / [...] retention at 4 hours (normal range, 0-10%). [place] RADIOLOGYUniversity Of Vermont Medical CenterviSt. [facility] Imaging [place] - 01/30/2024 * * *Final Report* * [...] which lowers the sensitivity of the study. Oracle Consultant: [facility] Transcribe Date/Time: Jan 30 2024 2:09P Dictated by : JOSELUIS MORA MD This examination was interpreted and the report reviewed and electronically signed by: JOSELUIS MORA MD on Jan 30 2024 2:10PM [facility] Centeriology Study observation (narrative)[facility] Stomach Views for gastric emptying solid phase W radionuclide POOrdered By: Ccf Provider on 08-15-0411Qaqbvkezm ClinicCNPNon 51-49-1788GPRXTjzyymlbi (MODESTO) CINDYCHIOMA Newberry Jovana ([id number]) 2000 F Date Time Provider Department 01/29/24 VITOR HARP During your visit today, we recorded [...] 11/15/2023 Encounter Status:Closed by VITOR HARP on 01/29/24[facility] 89-75-9926TUpqymmgk: [id number] Received: 01/02/24 Status: TRUDY Mosley Num: [id number] Spec Type: Surgical Subm Dr: Ana Bolton DO Tissues: A Appendix - Other than Incidental (APPENDIX) Procedures: HE/2, Gross/Micro L3 Age/ Patient Sex Location Account Attending Physician Chioma Alonzo 23/F LABELL [id number] Ana Bolton DO SPEC NUM: [id number] RECD: 01/02/24 STATUS: TRUDY MOSLEY NUM: [id number] RAQUEL: 01/01/[address]: Ana Bolton DO ENTERED: 01/02/[address] [facility] DR: Verena Bettencourt SPEC TYPE: Surgical DEPT: [...] masses or areas of perforation are identified. Assistance Representative sections are submitted in A1 (base and midportion)?A2 (entire distal tip). CPT Codes 56366 Specimen: [id number] Received: 01/02/24 Status: TRUDY Mosley Num: [id number] Spec Type: Surgical Subm Dr: Ana Bolton, Tissues: A Appendix - Other than Incidental (APPENDIX) Procedures: MARI/Tiffanie Morris/Laxmi L3 Patient: Chioma Alonzo [id number] (Continued) Signed (signature on file) Deanne Cabello MD 01/03/[address] [place] [address] Physician GroupSurgical PathologyOrdered By: Jasmin Hatch on 58-45-2014BjyUadnvbNewark HospitalCNOVon 26-19-6488UJSEEqhgql Visit ([facility]) CHIOMA ALONZO ([id number]) 2000 F Date Time Provider Department 12/28/23 3:00 PM DARA BUTLER JR [facility] During your visit today, we recorded [...] an issue, start amitriptyline. Consider referral to [facility] if symptoms fail to improve. Although the [...] last colonoscopy was 8 months ago in [place]. Start amitriptyline Keep appt with Dr. Menon [...] divisum. 12/01/22 HIDA scan was done at [facility]: Normal study EF 69% US: 10/31/22: (care everywhere) Liver normal Gallbaldder appears normal with no stones or sludge. No gallblad (more content not included)...NormalOhiohealth Van Wert HospitalAmylase SerPl-cCncon 12-27-2023 Amylase [Catalytic activity/Vol]44 U/ERtxpbn75-260AcgdsywuiOhiohealth Van Wert Hospital Comment on above:Order Comment: Specimen Type: BLOOD SPECIMENOrdering Facility: [facility] Address:[address] [place] [address] Performed By: #### 1798-8, 1987-, 3040-3 ####[facility] LABCLIA [id number] [facility] [place]82[place] [address] [place] OF AMERICABasophils Auto (Bld) [#/Vol]on 41-05-0375Vfyxvddsw (Bld) [#/Vol]0.04 10*3/uL<0.11Sheltering Arms HospitalBasophils/100 WBC Auto (Bld)on 74-55-8938Pqktmrxze/100 WBC (Bld)0.8 %[facility]tering Arms HospitalBlood manual differential comment interpretation narrativeon 72-80-1823Kqaenv differential comment Ganga (Bld) [Interp]AutoSheltering Arms HospitalCB W Auto Differential panel (Bld)on 79-98-2698Xummnyrod (Bld) [#/Vol]0.04 10*3/uL Normal<0.11CUniversity Hospitals Lake West Medical CenterComment on above:Order Comment: Specimen Type: BLOOD SPECIMENOrdering Facility: [facility] Address:[address] [place], [place] [address]Performed By: #### 09906-8 ####[facility] LABCLIA [id number] [place] [address] Basophils/100 WBC (Bld)0.8 %NormalMetroHealth Cleveland Heights Medical Center on above: Order Comment: Specimen Type: BLOOD SPECIMENOrdering Facility: [facility] Address:[address] [place], [place] [address]Performed By: #### 48433- 8 ####[facility] LABCLIA [id number] [place], [place] [address]Uqgdjckfjrzy cell count method Nom (Bld)AutoNormal [facility] on above:Order Comment: Specimen Type: BLOOD SPECIMENOrdering Facility: [facility] Address:[address] [place], [place] [address]Performed By: #### 59612-1 ####[facility] LABCLIA [id number] [place], [place] [address]Xykejybrkeo (Bld) [#/Vol]0.22 10*3/uLNormal<0.46[facility] on above: Order Comment: Specimen Type: BLOOD SPECIMENOrdering Facility: [facility] Address:[address] [place], [place] [address]Performed By: #### 50780- 8 ####[facility] LABCLIA [id number] [place], [place] [address]Nvlzcfsntxh/100 WBC (Bld)4.3 %NormalMetroHealth Cleveland Heights Medical Center on above:Order Comment: Specimen Type: BLOOD SPECIMENOrdering Facility: [facility] Address:[address] [place], [place] [address]Performed By: #### 74925-8 ####[facility] LABCLIA [id number] [place], [place] [address]Blguidyptdh distribution width (RBC) [Ratio]11.6 %Ewdreq07.5-15.0[facility] on above: Order Comment: Specimen Type: BLOOD SPECIMENOrdering Facility: [facility] Address:[address] [place], [place] [address]Performed By: #### 89286- 8 ####[facility] LABCLIA [id number] [place], [place] [address]Uygqgbjhmo (Bld) [Volume fraction]41.5 %Tqfyiw01.0-46.0 [facility] on above:Order Comment: Specimen Type: BLOOD SPECIMENOrdering Facility: [facility] Address:[address] [place], [place] [address]Performed By: #### 45380-0 ####[facility] LABCLIA [id number] [place], [place] [address]Tbchjayreq (Bld) [Mass/Vol]14.1 g/cPGduhvt83.5-15.5CFirelands Regional Medical Center on above: Order Comment: Specimen Type: BLOOD SPECIMENOrdering Facility: [facility] Address:[address] [place], [place] [address]Performed By: #### 89032- 8 ####[facility] LABIA [id number] [place], [place] [address]Ugondemo granulocytes (Bld) [#/Vol]10*3/uLNormal<0.10 [facility] on above:Order Comment: Specimen Type: BLOOD SPECIMENOrdering Facility: [facility] Address:[address] [place], [place] [address]Performed By: #### 32698-9 ####[facility] LABCLIA [id number] [place], [place] [address]Cfzumeit granulocytes/100 WBC (Bld)0.2 %NormalMetroHealth Cleveland Heights Medical Center on above: Order Comment: Specimen Type: BLOOD SPECIMENOrdering Facility: [facility] Address:[address] [place], [place] [address]Performed By: #### 06185- 8 ####[facility] LABCLIA [id number] [place], [place] [address]Mkojnrhhcqy (Bld) [#/Vol]2.06 10*3/uLNormal1.00-4.00 [facility] on above:Order Comment: Specimen Type: BLOOD SPECIMENOrdering Facility: [facility] Address:[address] [place], [place] [address]Performed By: #### 90717-1 ####[facility] LABCLIA [id number] [place], [place] [address]Pzplaetkhhd/100 WBC (Bld)39.8 %NormalMetroHealth Cleveland Heights Medical Center on above:Order Comment: Specimen Type: BLOOD SPECIMENOrdering Facility: [facility] Address:[address] [place], [place] [address]Performed By: #### 08607-8 ####[facility] LABCLIA [id number] [place], [place] [address]TWE (RBC) [Entitic mass]31.5 plGhgovw35.0-34.0[facility] on above:Order Comment: Specimen Type: BLOOD SPECIMENOrdering Facility: [facility] Address:[address] [place], [place] [address]Performed By: #### 84300-6 ####[facility] LABCLIA [id number] [place], [place] [address]EAIU (RBC) [Mass/Vol]34.0 g/yQHjaflo43.5-36.0[facility] on above: Order Comment: Specimen Type: BLOOD SPECIMENOrdering Facility: [facility] Address:[address] [place], [place] [address]Performed By: #### 07178- 8 ####[facility] LABCLIA [id number] [place], [place] [address]OZZ (RBC) [Entitic vol]92.6 uECensyo28.0-100.0[facility] on above:Order Comment: Specimen Type: BLOOD SPECIMENOrdering Facility: [facility] Address:[address] [place], [place] [address]Performed By: #### 65602-9 ####[facility] LABCLIA [id number] [place], [place] [address]Ixvtvifub (Bld) [#/Vol]0.42 10*3/uLNormal<0.87[facility] on above:Order Comment: Specimen Type: BLOOD SPECIMENOrdering Facility: [facility] Address:[address] [place], [place] [address]Performed By: #### 18127- 8 ####[facility] LABCLIA [id number] [place], [place] [address]Ftuxlwvae/100 WBC (Bld)8.1 %NormalMetroHealth Cleveland Heights Medical Center on above:Order Comment: Specimen Type: BLOOD SPECIMENOrdering Facility: [facility] Address:[address] [place], [place] [address]Performed By: #### 16888-8 ####[facility] LABCLIA [id number] [place], [place] [address]Ajwkknzyqqt (Bld) [#/Vol]2.42 10*3/uLNormal1.45-7.50[facility] on above:Order Comment: Specimen Type: BLOOD SPECIMENOrdering Facility: [facility] Address:[address] [place], [place] [address]Performed By: #### 80266-5 ####[facility] LABCLIA [id number] [place], [place] [address]Avuqowekteb/100 WBC (Bld)46.8 %NormalMetroHealth Cleveland Heights Medical Center on above:Order Comment: Specimen Type: BLOOD SPECIMENOrdering Facility: [facility] Address:[address] [place], [place] [address]Performed By: #### 01034-0 ####[facility] LABCLIA [id number] [place], [place] [address]Xqbvzkqqp RBC (Bld) [#/Vol] 10*3/uLNormal<0.01[facility] on above:Order Comment: Specimen Type: BLOOD SPECIMENOrdering Facility: [facility] Address:[address] [place], [place] [address]Performed By: #### 96687-2 ####[facility] LABCLIA [id number] [place], [place] [address]Dlqslkjam RBC/100 WBC (Bld) [Ratio]0.0 /100 WBCNormal [facility] on above:Order Comment: Specimen Type: BLOOD SPECIMENOrdering Facility: [facility] Address:[address] [place], [place] [address]Performed By: #### 72811-2 ####[facility] LABIA [id number] [place], [place] [address]Sqflldug mean volume (Bld) [Entitic vol]10.5 fLNormal9.0-12.7CFirelands Regional Medical Center on above:Order Comment: Specimen Type: BLOOD SPECIMENOrdering Facility: [facility] Address:[address] [place] [address] Performed By: #### 63251-2 ####[facility] LABIA [id number] [place], [place] [address]Bdvcsufyo (Bld) [#/Vol]179 10*3/iTWuajch293-666JhaoebnsnMetroHealth Cleveland Heights Medical Center on above:Order Comment: Specimen Type: BLOOD SPECIMENOrdering Facility: [facility] Address:[address] [place], [place] [address]Performed By: #### 43904-0 ####[facility] LABCLIA [id number] [place], [place] [address]NAS (Bld) [#/Vol]4.48 10*6/uLNormal3.90-5.20[facility] on above:Order Comment: Specimen Type: BLOOD SPECIMENOrdering Facility: [facility] Address:[address] [place], [place] [address]Performed By: #### 00222-7 ####[facility] LABCLIA [id number] [place], [place] [address]OTI (Bld) [#/Vol]5.17 10*3/uLNormal3.70-11.00[facility] on above: Order Comment: Specimen Type: BLOOD SPECIMENOrdering Facility: [facility] Address:[address] [place], [place] [address]Performed By: #### 09417- 8 ####[facility] LABIA [id number] [place], [place] [address]GRY SerPl-mCncon 45-70-7372HBE [Mass/Vol]mg/LNormal<0.9 [facility] on above:Order Comment: Specimen Type: BLOOD SPECIMENOrdering Facility: [facility] Address:[address] [place], [place] [address]Performed By: #### 1798-8, 1987-5, 3040-3 ####[facility] LABCLIA [id number] [place] [address] [id number] [place] OF AMERICAComprehensive metabolic 2000 panelon 12-27-2023 Albumin [Mass/Vol]4.6 g/dLNormal3.9-4.9CFirelands Regional Medical Center on above:Order Comment: Specimen Type: BLOOD SPECIMENOrdering Facility: [facility] Address:[address] [place], [place] [address]Performed By: #### 32183-3 ####[facility] LABIA [id number] [place], [place] [address]WYC [Catalytic activity/Vol]53 U/JVvkxax79-893 [facility] on above:Order Comment: Specimen Type: BLOOD SPECIMENOrdering Facility: [facility] Address:[address] [place], [place] [address]Performed By: #### 08493-1 ####[facility] LABCLIA [id number] MARCELA PRAVEENPHOENIX MEMORIAL HOSPITALGENETBATH, [place] [address]RWY [Catalytic activity/Vol]9 U/LNormal7-38[facility] on above:Order Comment: Specimen Type: BLOOD SPECIMENOrdering Facility: [facility] Address:[address] [place], [place] [address]Performed By: #### 70140- 8 ####[facility] LABCLIA [id number] [facility] [place]Y [place]W [place], [place] [address]Rolut gap [Moles/Vol]6 mmol/LLow8-15[facility] on above:Order Comment: Specimen Type: BLOOD SPECIMENOrdering Facility: [facility] Address:[address] [place], [place] [address]Performed By: #### 39361-9 ####[facility] LABCLIA [id number] [facility] ADYFERNANDAPHOENIX MEMORIAL HOSPITALEZEKIELCOW[place], [place] [address]PYX [Catalytic activity/Vol]14 U/ZIjhxen29-64LeiwtoukuMetroHealth Cleveland Heights Medical Center on above:Order Comment: Specimen Type: BLOOD SPECIMENOrdering Facility: [facility] Address:[address] [place], [place] [address]Performed By: #### 64173-2 ####[facility] LABCLIA [id number] [facility] ADYFERNANDAPHOENIX MEMORIAL [place] [address] Bilirubin [Mass/Vol]0.5 mg/dLNormal0.2-1.3CFirelands Regional Medical Center on above:Order Comment: Specimen Type: BLOOD SPECIMENOrdering Facility: [facility] Address:[address] [place], [place] [address]Performed By: #### 16952-1 ####[facility] LABCLIA [id number] PION[facility]IAL HOSPITALFERNANDANEW [place], [place] [address]Zhgwmru [Mass/Vol]10.2 mg/dLNormal8.5-10.2CFirelands Regional Medical Center on above:Order Comment: Specimen Type: BLOOD SPECIMENOrdering Facility: [facility] Address:[address] [place], [place] [address]Performed By: #### 38364-0 ####[facility] LABCLIA [id number] [place], [place] [address]Ojjrihow [Moles/Vol]103 mmol/NPzqbxh94-459IkdfjmcpoMetroHealth Cleveland Heights Medical Center on above: Order Comment: Specimen Type: BLOOD SPECIMENOrdering Facility: [facility] Address:[address] [place], [place] [address]Performed By: #### 27169- 8 ####[facility] LABCLIA [id number] [place], [place] [address]LP4 [Moles/Vol]28 mmol/GNerzzb76-59AqkwyekwyMetroHealth Cleveland Heights Medical Center on above:Order Comment: Specimen Type: BLOOD SPECIMENOrdering Facility: [facility] Address:[address] [place], [place] [address]Performed By: #### 93781-4 ####[facility] LABCLIA [id number] [place], [place] [address]Jabiofzvko [Mass/Vol]0.68 mg/dL Normal0.58-0.96[facility] on above:Order Comment: Specimen Type: BLOOD SPECIMENOrdering Facility: [facility] Address:[address] [place], [place] [address]Performed By: #### 69433-2 ####[facility] LABCLIA [id number] [place], [place] [address]Akzxezjcxw and Glomerular filtration rate.predicted panel (S/P/Bld)124 mL/min/1.73m???Normal>=60[facility] on above:Order Comment: Specimen Type: BLOOD SPECIMENOrdering Facility: [facility] Address:[address] [place], [place] [address]Result Comment: Estimated Glomerular Filtration Rate (eGFR) is calculated using the 2020 CKD-EPI creatinine equation. This equation utilizes serum creatinine, sex, and age as parameters. The creatinine assay has traceable calibration to isotope dilution- mass spectrometry. Refer to KDIGO guidelines for clinical interpretation. In patients with unstable renal function, e.g. those with acute kidney injury, the eGFR may not accurately reflect actual GFR.Performed By: #### 49412-9 ####[facility] LABCLIA [id number] [place], [place] [address]Bulmwtk [Mass/Vol]97 mg/fAKmpfas23-10LmrvtxnfiMetroHealth Cleveland Heights Medical Center on above:Order Comment: Specimen Type: BLOOD SPECIMENOrdering Facility: [facility] Address:[address] [place] [address]Ddkgld Comment: The [place] Diabetes Association (ADA) provides guidance for cutoff values for fasting glucose and random glucose. The ADA defines fasting as no caloric intake for at least 8 hours. Fasting plasma glucose results between 100 to 125 mg/dL indicate increased risk for diabetes (prediab etes). Fasting plasma glucose results greater than or [...] Standards of Medical Care in Diabetes 2016, [place] Diabetes Association. Diabetes Care. 2016.39(Suppl 1).Performed By: #### 63277-4 ####[facility] LABCLIA [id number] [place], [place] [address]Hshljzwsb [Moles/Vol]4.3 mmol/LNormal3.7-5.1CFirelands Regional Medical Center on above:Order Comment: Specimen Type: BLOOD SPECIMENOrdering Facility: [facility] Address:[address] [place], [place] [address]Ckvtvfevk By: #### 45219-8 ####[facility] LABCLIA [id number] [place], [place] [address]Qdafmej [Mass/Vol]7.2 g/dLNormal6.3-8.0[facility] on above:Order Comment: Specimen Type: BLOOD SPECIMENOrdering Facility: [facility] Address:[address] [place], [place] [address]Performed By: #### 61797- 8 ####[facility] LABCLIA [id number] [place], [place] [address]Hfbfkb [Moles/Vol]137 mmol/CZfbdra823-267LwmmnujvdMetroHealth Cleveland Heights Medical Center on above:Order Comment: Specimen Type: BLOOD SPECIMENOrdering Facility: [facility] Address:[address] [place], [place] [address]Performed By: #### 83811-2 ####[facility] LABCLIA [id number] [place], [place] [address]Bdwn nitrogen [Mass/Vol]13 mg/dLNormal7-21[facility] on above:Order Comment: Specimen Type: BLOOD SPECIMENOrdering Facility: [facility] Address:[address] [place], [place] [address]Performed By: #### 60927-4 ####[facility] LABCLIA [id number] [place], [place] [address]MWR Westergren method (Bld) [Velocity]on 45-84-8531AUG (Bld) [Velocity]12 mm/hNormal0-20[facility] on above: Order Comment: Specimen Type: BLOOD SPECIMENOrdering Facility: [facility] Address:[address] [place], [place] [address]Performed By: #### 4537-7 ####[facility] LABCLIA [id number] [facility] B09LXEFGEXMAANDREW VILLE [id number] [place] OF AMERICAEosinophils/100 WBC Auto (Bld)on 64-18-1075Thgsuwhhayq/100 WBC (Bld)4.3 %[facility] Erythrocyte distribution width Auto (RBC) [Ratio]on 07-74-3939Hqvkklntnkk distribution width (RBC) [Ratio]11.6 %11.5-15.0[facility] Hematocrit Auto (Bld) [Volume fraction]on 82-92-8522Dyibxqmtiu (Bld) [Volume fraction]41.5 %36.0-46.0[facility] HospitalHemoglobin [Mass/volume] in Bloodon 36-82-3299Ubtepnrosd (Bld) [Mass/Vol]14.1 g/dL11.5-15.5 [facility] HospitalLaboratory - Chemistry and Chemistry - challengeon 00-70-5067Nythgmr [Mass/Vol]4.6 g/dL3.9-4.9[facility] HospitalALP [Catalytic activity/Vol]53 U/R30-537YqfvmhkiqSheltering Arms HospitalALT [Catalytic activity/Vol]9 U/L7-38[facility] Amylase [Catalytic activity/Vol]44 U/R22-129LjuqknvfdSheltering Arms HospitalAST [Catalytic activity/Vol]14 U/T20-07MajpbjgwpSheltering Arms HospitalBilirubin [Mass/Vol]0.5 mg/dL0.2-1.3FMercy Health St. Elizabeth [facility]stown HospitalCalcium [Mass/Vol] 10.2 mg/dL8.5-10.2FMercy Health St. Elizabeth [facility] HospitalChloride [Moles/Vol]103 mmol/E98-250JopoyeurqSheltering Arms HospitalCO2 [Moles/Vol]28 mmol/L22-30 [facility] HospitalCreatinine [Mass/Vol]0.68 mg/dL0.58-0.96 [facility] HospitalGlucose [Mass/Vol]97 mg/hU41-77VcwgowmbbSheltering Arms HospitalComment on above:The [place] Diabetes Association (ADA) provides guidance for cutoff values for fasting glucose andrandom glucose. The ADA defines fasting as no caloric intake for at least 8 hours. Fasting plasma gl ucose results between 100 to 125 mg/dL indicate increased risk for diabetes (prediabetes).Fasting plasma glucose results greater than or equal to 126 mg/dL meet the criteria for diagnosis of diabetes. In the absence of unequivocal hyperglycemia, results should be confirmed by repeat testing. In a patient with classic symptoms of hyperglycemia or hyperglycemic crisis, random plasma glucose resultsgreater than or equal to 200 mg/dL meet the criteria for diagnosis of diabetes.Reference: Standardsof Medical Care in Diabetes 2016, [place] Diabetes Association. Diabetes Care. 2016.39(Suppl 1).Lipase [Catalytic activity/Vol]22 U/L06-91HvfpwpvswSheltering Arms HospitalPotassium [Moles/Vol]4.3 mmol/L3.7-5.1 [facility] Systemodium [Moles/Vol]137 mmol/W836-071KgqvqixokSheltering Arms HospitalUrea nitrogen [Mass/Vol]13 mg/dL7-21[facility] HospitalLaboratory - Hematology and Cell countson 03-42-5109Hhxpjqhgota (Bld) [#/Vol]0.22 10*3/uL<0.46S[facility] Arms HospitalESR (Bld) [Velocity]12 mm/h0-20[facility] HospitalImmature granulocytes/100 WBC (Bld)0.2 %[facility] HospitalLeukocytes [#/volume] corrected for nucleated erythrocytes in Blood by Automated counon 53-23-6115WKF corrected for nucl RBC Auto (Bld) [#/Vol]5.17 k/uL3.70-11.00[facility] HospitalLipase SerPl-cCncon 50-93-5806Hqksdx [Catalytic activity/Vol]22 U/LNormal 16-61Ohiohealth Van Wert HospitalComment on above:Order Comment: Specimen Type: BLOOD SPECIMENOrdering Facility: [facility] Address:[address] [place], [place] [address]Performed By: #### 1798-8, 5, 3040-3 ####[facility] LABCLIA [id number] [place] [address] [place] OF AMERICALymphocytes Auto (Bld) [#/Vol]on 12-27-2023 Lymphocytes (Bld) [#/Vol]2.06 10*3/uL1.00-4.00[facility] Lymphocytes/100 WBC Auto (Bld)on 56-11-4938Srkspvdsapp/100 WBC (Bld)39.8 % [facility] HospitalMCH Auto (RBC) [Entitic mass]on 45-76-2187OOF (RBC) [Entitic mass]31.5 pg26.0-34.0S[facility] Arms HospitalMCHC Auto (RBC) [Mass/Vol]on 27-71-6201NZYF (RBC) [Mass/Vol]34.0 g/dL30.5-36.0[facility] HospitalMCV Auto (RBC) [Entitic vol]on 34-51-5274WGG (RBC) [Entitic vol]92.6 fL80.0-100.0[facility] HospitalMonocytes Auto (Bld) [#/Vol]on 89-62-8027Ejokyeiwf (Bld) [#/Vol]0.42 10*3/uL<0.87[facility] HospitalMonocytes/100 WBC Auto (Bld)on 22-31-2677Dzktdyxky/100 WBC (Bld)8.1 %[facility] HospitalNeutrophils Auto (Bld) [#/Vol]on 55-21-5409Yxwefxqyovg (Bld) [#/Vol]2.42 10*3/uL1.45-7.50[facility] HospitalNeutrophils/100 WBC Auto (Bld)on 99-13-8430Dghspbxrkhv/100 WBC (Bld)46.8 %[facility] HospitalNo Panel Informationon 87-96-5090U- Reactive Protein, Quantitative<0.3 mg/dL<0.9[facility] Estimated GFR (CKD-EPI)124 mL/min/1.73m???>=60[facility] Comment on above:Estimated Glomerular Filtration Rate (eGFR) is calculated using the 2020 CKD-EPI creatinine equation. This equation utilizes serum creatinine, sex, and age as parameters. The creatinine assay has traceable calibration to isotope dilution-mass spectrometry. Refer to KDIGO guidelines for clinical inte rpretation. In patients with unstable renal function, e.g. those with acute kidney injury, the eGFRmay not accurately reflect actual GFR.Immature Granulocyte # (Auto)<0.03 k/uL<0.10[facility] HospitalNucleated RBC Auto (Bld) [#/Vol]on 89-64-3910Doresmzea RBC (Bld) [#/Vol]10*3/uL<0.01 [facility] HospitalNucleated erythrocytes [Presence] in Blood by Automated counton 88-18-2218Cukxjxwiy RBC Auto Ql (Bld)0.0 /100{WBC}[facility] HospitalPlatelet mean volume Auto (Bld) [Entitic vol]on 16-52-1007Lysmkgso mean volume (Bld) [Entitic vol]10.5 fL9.0-12.7FMercy Health St. Elizabeth Youngstown HospitalPlatelets Auto (Bld) [#/Vol]on 13-46-4533Vlobnwmim (Bld) [#/Vol]179 10*3/jN323-575RzqriafnxSheltering Arms HospitalProtein [Mass/volume] in Serum or Plasmaon 56-96-0814Kwhjzks [Mass/Vol]7.2 g/dL6.3-8.0[facility] HospitalRBC Auto (Bld) [#/Vol]on 04-83-1477GIA (Bld) [#/Vol]4.48 10*6/uL3.90-5.20[facility] Hospitals Health Systemerum or plasma anion gap determinationon 06-10-1808Czvlo gap [Moles/Vol]6 mmol/LLow8-15[facility] HospitalCNCOon 37-39-4170AUGGBvcfki TextNormalCUniversity [facility]als [facility] CNOVon 93-55-4142ATITJzarpe Visit ([id number]) CHIOMA ALONZO ([id number]) 2000 F Date Time Provider Department 12/05/23 2:00 PM ARIELLA MCCOY [id number] During your visit today, we recorded the [...] or concerns that may arise. Follow up: PRN Ariella Mccoy APRN.CNP Referring Provider: ANALIA HOLLIDAY [[id number]] Allergies As of Date: 12/05/2023 Noted Allergy Reaction METRONIDAZOLE 09/07/2020 1 - Mental Status Change 6 - Diarrhea 8 - GI Upset 4 - Hives 14 - Other: See Comments 2 - Rash 12 - Shortness of Breath 16 - Unknown 11 - Vomiting Date Reviewed: 12/05/2023 Reviewed by: Ariella Mccoy APRN.CONCRETE SCULPTOR - Fully Assessed Reason for Visit: Post [...] for Encounter Date Provider Department Center 12/05/2023 [id number] MCCOY [id number] [facility] Encounter Status:Closed by ARIELLA MCCOY on 12/05/23[facility] CenterANES POSTPROC EVALon 80-95-2124CSXA POSTPROC EVALHNO ID: [id number] Author: MOSHE KRISHNAMURTHY DO Service: Anesthesiology Author [...] November 21, 2023 TIME: 5:47 PM CSN: [id number] Hospital PRE-OPon 80-64-6646GGHV PRE-OPHNO ID: [id number] Author: MOSHE KRISHNAMURTHY DO Service: Anesthesiology Author [...] November 21, 2023 TIME: 2:08 PM CSN: [id number] Hospital OP NOTon 11-21-2023 BRIEF OP NOTHNO ID: [id number] Author: ANA LLANES MD Service: General Surgery Author Type: Resident Type: Brief Op Note Filed: 11/21/2023 15:32 Note Text: GENERAL SURGERY BRIEF OPERATIVE NOTE Chioma Alonzo [id number] LOG ID: [id number] Surgery/Procedure Date: 11/21/2023 Incision/Procedure Start Time: 2:30 PM Incision Close/Procedure End Time: 3:23 PM Surgeon(s)/Proceduralist(s) and Diabetes Specialist(s): Surgeon(s) and Role: * Seema Davis [...] 21, 2023 TIME: 3:31 PM PAGER/CONTACT #: [phone] HospitalOPERATIVE NOon 05-23-2461SXGDXBARO NOHNO ID: [id number] Author: SEEMA DAVIS MD Service: General Surgery Author Type: Physician Type: Operative Report Filed: 11/23/2023 14:05 Note Text: [facility] - Operative Report CHIOMA ALONZO : 2000 AGE: 23. SEX: F PATIENT TYPE: A HOSP SV: [facility] LOCATION: [facility] ATTENDING PHYSICIAN: Seema Davis M.D. CSN NUMBER: [id number] DATE OF SURGERY/PROCEDURE: 11/21/2023 INCISION/PROCEDURE START TIME: 2:30 PM INCISION CLOSE/PROCEDURE END TIME: 3:23 PM PREOPERATIVE DIAGNOSIS: Epigastric and right upper quadrant abdominal pain. POSTOPERATIVE DIAGNOSIS: Epigastric and right upper quadrant abdominal pain. SURGEON: Seema Davis M.D. ATOMIC PROCESS ENGINEER: Ana Llanes M.D. SURGERY/PROCEDURE: Laparoscopic cholecystectomy. ANESTHESIA: [...] infraumbilical site was closed with a single pungth-dc-zkzzh #0 Vicryl suture, local anesthetic was infiltrated and this was closed in layers with 3-0 Vicryl. The 5 mm sites were closed with 4-0 Monocryl. The wounds were washed and dried and Exofin glue applied. Patient was awakened and taken to Recovery in satisfactory condition. All counts were correct x2. I was present for the entire operation. Seema Davis M.D. :[id number] /[id number] [facility] [id number] EDHNO ID: [id number] Author: JUAN NIEVES RN Service: Nursing Author [...] REFERRAL (RECOMMENDATION): None Electronically Signed By: Juan RaderBrigham and Women's [facility] EDHNO ID: [id number] Author: CRISTI WITT RN Service: ? Author Type: Registered Nurse [...] REFERRAL (RECOMMENDATION): None Electronically Signed By: Cristi [facility] PATHOLOGYon 04-55-1928DUQX REPORTClinton HospitalComment on above:Order Comment: Specimen Type: TISSUE SPECIMENOrdering Facility: [facility] Address: [address] [place] [address] Comment: Surgical Pathology Report Case: [id number] Authorizing Provider: Seema Davis MD Collected: 11/21/2023 02:39 PM Ordering Location: [facility] Received: 11/22/2023 07:43 AM Operating Room Pathologist: Woodrow Rain MD Specimen: GallbladderPerformed By: #### S ####[facility] LABCLIA [id number] [address] HISTORYClinton HospitalComment on above:Order Comment: Specimen Type: TISSUE SPECIMENOrdering Facility: [facility] Address: [address] [place], [place] [address]Result Comment: Pre-op diagnosis: Cholecystitis [K81.9]Performed By: #### S ####[facility] LABCLIA [id number] [address] StreetComment on above:Order Comment: Specimen Type: TISSUE SPECIMENOrdering Facility: [facility] Address: [address] [place], [place] [address]Result Comment: A. Gallbladder, cholecystectomy: -Gallbladder with no diagnostic abnormality. Performed By: #### S ####[facility] LABCLIA [id number] [address]ETFINAL PERFORMING LAB Clinton HospitalComment on above:Order Comment: Specimen Type: TISSUE SPECIMENOrdering Facility: [facility] Address: [address] [place] [address]Xtcsdy Comment: Diagnostic interpretation performed at [facility], [address] [place], [place] [address] CLIA# [id number] Test Developer: Roverto Coleman M.D.Performed By: #### S ####[facility] LABCLIA [id number] [address] STATES OF AMERICAGROSS DESCRIPTIONA. GallbladderNormBeth Israel HospitalComment on above:Order Comment: Specimen Type: TISSUE SPECIMENOrdering Facility: [facility] Address: [address] [place], [place] [address]Result Comment: Received in formalin designated gallbladder is a gallbladder that measures 7.7 x 2.9 x 2.7 cm. The serosal surface is green and smooth. The cystic duct measures 0.2 cm in length and0.1 cm in diameter. Within the gallbladder is a green viscous bile. There are no calculi within the gallbladder or impacting the cystic duct. The gallbladder mucosa is green and velvety with a wall thickness of 0.1 cm. Assistance Representative sections are submitted in 1 cassette. WE November 22, 2023 11:51 AM Gross examination performed at [facility], [address] [place], [place] [address]Performed By: #### S ####[facility] LABCLIA [id number] [place] [address] [place] AMERICABasophils Auto (Bld) [#/Vol]on 77-29-0066Kabxgmplj (Bld) [#/Vol]0.04 10*3/uL<0.11S[facility] HospitalBasophils/100 WBC Auto (Bld)on 94-26-6052Sblsyrsts/100 WBC (Bld)0.7 %[facility] Arms HospitalBlood manual differential comment interpretation narrativeon 52-36-7846Zqeqmy differential comment Ganga (Bld) [Interp]AutoSheltering Arms HospitalCBC W Auto Differential panel (Bld)on 92-70-5834Kgixhfjjt (Bld) [#/Vol]0.04 10*3/uL NINFCsheltering arms hospital ClinicBasophils/100 WBC (Bld)0.7 %[facility] CampusDifferential cell count method Nom (Bld)AutoCleveland ClinicEosinophils (Bld) [#/Vol]0.19 10*3/uLNINFSt. Mary'S Medical [facility] CampusEosinophils/100 WBC (Bld)3.4 %[facility] Erythrocyte distribution width (RBC) [Ratio]11.6 %11.5 - 15.0 %[facility] Hematocrit (Bld) [Volume fraction]37.7 %36.0 - 46.0 %[facility] CampusHemoglobin (Bld) [Mass/Vol]12.6 g/dL11.5 - 15.5 g/dLSt. Mary'S Medical Center, [facility] CampusImmature granulocytes (Bld) [#/Vol]NINFClevelOhioHealth Nelsonville Health CenterImmature granulocytes/100 WBC (Bld)0.2 % [facility] CampusLymphocytes (Bld) [#/Vol]2.43 10*3/uLSt. Mary'S [facility] Lymphocytes/100 WBC (Bld)43.6 %[facility]ami Valley HospitalH (RBC) [Entitic mass]31.9 pg 26.0 - 34.0 pgCMarymount HospitalHC (RBC) [Mass/Vol]33.4 g/dL30.5 - 36.0 g/dL Miami Valley HospitalV (RBC) [Entitic vol]95.4 fL80.0 - 100.0 fLCCleveland Clinic Union Hospital Monocytes (Bld) [#/Vol]0.47 10*3/uLNINFSt. Mary'S Medical [facility] CampusMonocytes/100 WBC (Bld) 8.4 %[facility] CampusNeutrophils (Bld) [#/Vol]2.43 10*3/uLSt. Mary'S [facility] Neutrophils/100 WBC (Bld)43.7 %[facility] CampusNucleated RBC (Bld) [#/Vol]NINF [facility] CampusNucleated RBC/100 WBC (Bld) [Ratio]0.0 %/100 WBCSt. Mary'S [facility] Platelet mean volume (Bld) [Entitic vol]10.5 fL9.0 - 12.7 fLCCleveland Clinic Union Hospital Platelets (Bld) [#/Vol]201 10*3/uLSt. Mary'S Medical Center, Ironton CampusRBC (Bld) [#/Vol]3.95 10*6/uL 3.90 - 5.20 m/[facility] City HospitalWBC (Bld) [#/Vol]5.57 10*3/[facility] HospitalBasophils (Bld) [#/Vol]0.04 10*3/uLNormal<0.11[facility] Comment on above:Order Comment: Specimen Type: BLOOD SPECIMEN [facility] Address: [address] [place], [place] [address]Performed By: #### 44987-6 #### [facility] CLIA [id number] [address] [place] [address] [place] AMERICABasophils/100 WBC (Bld)0.7 %NormalAv HospitalComment on above:Order Comment: Specimen Type: BLOOD SPECIMEN [facility] Address: [address] [place], [place] [address]Performed By: #### 41817-4 #### [facility] CLIA [id number] [address] [place] [address] [place] AMERICADifferential cell count method Nom (Bld) AutoNormalAvon HospitalComment on above:Order Comment: Specimen Type: BLOOD SPECIMEN [facility] Address: [address] [place], [place] [address]Performed By: #### 70670-5 #### [facility] CLIA [id number] [address] [place] [address] [place] AMERICAEosinophils (Bld) [#/Vol]0.19 10*3/uL Normal<0.46Avon HospitalComment on above:Order Comment: Specimen Type: BLOOD SPECIMEN [facility] Address: [address] [place], [place] [address]Performed By: #### 24463-6 #### [facility] CLIA [id number] [address] [place] [address] [place] AMERICAEosinophils/100 WBC (Bld)3.4 %NormalAv HospitalComment on above:Order Comment: Specimen Type: BLOOD SPECIMEN [facility] Address: [address] [place], [place] [address]Performed By: #### 05323-4 #### [facility] IA [id number] [address] [place] [address] [place] AMERICAErythrocyte distribution width (RBC) [Ratio]11.6 %Dypbyv73.5-15.0Avon HospitalComment on above:Order Comment: Specimen Type: BLOOD SPECIMEN [facility] Address: [address] [place], [place] [address]Performed By: #### 45673-0 #### [facility] IA [id number] [address] [place] [address] [place] AMERICAHematocrit (Bld) [Volume fraction]37.7 % Ryjwmg26.0-46.0Av HospitalComment on above:Order Comment: Specimen Type: BLOOD SPECIMEN [facility] Address: [address] [place], [place] [address]Performed By: #### 96799-0 #### [facility] IA [id number] [address] [place] [address] [place] AMERICAHemoglobin (Bld) [Mass/Vol]12.6 g/dL Acuvpu14.5-15.5Avon HospitalComment on above:Order Comment: Specimen Type: BLOOD SPECIMEN [facility] Address: [address] [place], [place] [address]Performed By: #### 31526-5 #### [facility] IA [id number] [address] [place] [address] [place] AMERICAImmature granulocytes (Bld) [#/Vol] 10*3/uLNormal<0.10Avon HospitalComment on above:Order Comment: Specimen Type: BLOOD SPECIMEN [facility] Address: [address] [place], [place] [address]Performed By: #### 64364-4 #### [facility] IA [id number] [address] [place] [address] [place] AMERICAImmature granulocytes/100 WBC (Bld)0.2 % NormalAv HospitalComment on above:Order Comment: Specimen Type: BLOOD SPECIMEN [facility] Address: [address] [place], [place] [address]Performed By: #### 51113-6 #### [facility] CLIA [id number] [address] [place] [address] [place] AMERICALymphocytes (Bld) [#/Vol]2.43 10*3/uL Normal1.00-4.00Av HospitalComment on above:Order Comment: Specimen Type: BLOOD SPECIMEN [facility] Address: [address] [place], [place] [address]Performed By: #### 25246-0 #### [facility] IA [id number] [place] [address] [place] AMERICALymphocytes/100 WBC (Bld)43.6 %NormalAv HospitalComment on above:Order Comment: Specimen Type: BLOOD SPECIMEN [facility] Address: [address] [place], [place] [address]Performed By: #### 91371-3 #### [facility] IA [id number] [address] [place] [address] [facility] (RBC) [Entitic mass]31.9 pgNormal 26.0-34.0Av HospitalComment on above:Order Comment: Specimen Type: BLOOD SPECIMEN [facility] Address: [address] [place], [place] [address]Performed By: #### 62055-3 #### [facility] IA [id number] [place] [address] [facility] (RBC) [Mass/Vol]33.4 g/dLNormal 30.5-36.0Av HospitalComment on above:Order Comment: Specimen Type: BLOOD SPECIMEN [facility] Address: [address] [place], [place] [address]Performed By: #### 50294-9 #### [facility] IA [id number] [address] [place] [address] [place] AMERICAMCV (RBC) [Entitic vol]95.4 fLNormal 80.0-100.0Av HospitalComment on above:Order Comment: Specimen Type: BLOOD SPECIMEN [facility] Address: [address] [place], [place] [address]Performed By: #### 29289-4 #### [facility] IA [id number] [address] [place] [address] [place] AMERICAMonocytes (Bld) [#/Vol]0.47 10*3/uLNormal <0.87Av HospitalComment on above:Order Comment: Specimen Type: BLOOD SPECIMEN [facility] Address: [address] [place], [place] [address]Performed By: #### 82582-5 #### [facility] IA [id number] [address] [place] [address] [place] AMERICAMonocytes/100 WBC (Bld)8.4 %NormalAv HospitalComment on above:Order Comment: Specimen Type: BLOOD SPECIMEN [facility] Address: [address] [place], [place] [address]Performed By: #### 35404-7 #### [facility] IA [id number] [address] [place] [address] [place] AMERICANeutrophils (Bld) [#/Vol]2.43 10*3/uL Normal1.45-7.50Av HospitalComment on above:Order Comment: Specimen Type: BLOOD SPECIMEN [facility] Address: [address] [place], [place] [address]Performed By: #### 56197-3 #### [facility] IA [id number] [address] [place] [address] [place] AMERICANeutrophils/100 WBC (Bld)43.7 %NormalAv HospitalComment on above:Order Comment: Specimen Type: BLOOD SPECIMEN [facility] Address: [address] [place], [place] [address]Performed By: #### 39514-0 #### [facility] IA [id number] [address] [facility] [address] [place] AMERICANucleated RBC (Bld) [#/Vol]10*3/uLNormal <0.01Avon HospitalComment on above:Order Comment: Specimen Type: BLOOD SPECIMEN [facility] Address: [address] [place], [place] [address]Performed By: #### 25324-4 #### [facility] IA [id number] [address] [place] [address] [place] AMERICANucleated RBC/100 WBC (Bld) [Ratio]0.0 /100 WBCNormalAvon HospitalComment on above:Order Comment: Specimen Type: BLOOD SPECIMEN [facility] Address: [address] [place], [place] [address]Performed By: #### 19851-1 #### [facility] IA [id number] [address] [place] [address] [place] AMERICAPlatelet mean volume (Bld) [Entitic vol] 10.5 fLNormal9.0-12.7Avon HospitalComment on above:Order Comment: Specimen Type: BLOOD SPECIMEN [facility] Address: [address] [place], [place] [address]Performed By: #### 84094-9 #### [facility] IA [id number] [address] [facility] [address] [place] AMERICAPlatelets (Bld) [#/Vol]201 10*3/uLNormal 150-400Avon HospitalComment on above:Order Comment: Specimen Type: BLOOD SPECIMEN [facility] Address: [address] [place], [place] [address]Performed By: #### 67898-1 #### [facility] IA [id number] [address] [facility] [address] CITIZENS BAPTISTRB (Bld) [#/Vol]3.95 10*6/uLNormal 3.90-5.20Av HospitalComment on above:Order Comment: Specimen Type: BLOOD SPECIMEN [facility] Address: [address] [place] [id number] By: #### 43321-4 #### [facility] CLIA [id number] [address] [place] [address] [facility]IZENS BAPTISTW (Bld) [#/Vol]5.57 10*3/uLNormal 3.70-11.00Av HospitalComment on above:Order Comment: Specimen Type: BLOOD SPECIMEN [facility]: [address] [facility] [address] [place] [id number] By: #### 77479-7 #### [facility] CLIA [id number] [address] [address]CNPNon [id number] (AVPANE) CHIOMA ALONZO ([id number]) 2000 F Date Time Provider Department 11/15/23 MADHU CAUSEY AVPANE During your visit today, we recorded the following information about you: Madhu Causey PA-C 11/16/2023 7:[address] Rushing , Your patient was seen for preanesthesia consult 11/15/2023. Chioma Jovana Alonzo is scheduled for LAPAROSCOPIC CHOLECYSTECTOMY with Dr. Seema Davis on 11/21/2023. Do you feel they are medically optimized and ok to proceed as scheduled? Event monitor preliminary reading in Barcoding Cardiac Outpatient Recording/Telemetry [ID [id number]] ECHO completed in [place]. Of note she also has been to the ED 2 times for her palpitations since your visit, with c/o of palpations intermittently throughout the day. she denies associated SOB or dizziness. She reports her symptoms have not changed. Thank you, Madhu Causey PA-C Preanesthesia Consultation Clinic Valery Lujan [...] Sedrick Rushing MD You; Wilfredo Avila OCCA; [facility] Card Nurse 9 hours ago (10:29 PM) [...] PM Signed Faxed Cardiac Clearance form to [facility] at [phone]. Scanned into chart. CHATO Ramirez Allergies As [...] 11/15/2023 Encounter Status:Closed by MADHU CAUSEY on 11/16/23[facility] Comprehensive metabolic 2000 panelon 26-29-4475Zltjcqf [Mass/Vol]4.4 g/dL3.9 - 4.9 g/dLBonaparte ClinicALP [Catalytic activity/Vol]47 U/L34 - 123 U/LCleveland ClinicALT [Catalytic activity/Vol]8 U/L7 - 38 U/LCleveland ClinicAnion gap [Moles/Vol]11 mmol/L9 - 18 mmol/LCleveland ClinicAST [Catalytic activity/Vol]18 U/L13 - 35 U/LCleveland ClinicBilirubin [Mass/Vol]0.4 mg/dL0.2 - 1.3 mg/dL Bonaparte ClinicCalcium [Mass/Vol]9.6 mg/dL8.5 - 10.2 mg/dLSt. [facility] Chloride [Moles/Vol]103 mmol/L97 - 105 mmol/LCleveland ClinicCO2 [Moles/Vol]24 mmol/L22 - 30 mmol/LCleveland ClinicCreatinine [Mass/Vol]0.75 mg/dL0.58 - 0.96 mg/dLSt. Mary'S [facility], [facility] CampusGFR/1.73 sq M.predicted among non-blacks MDRD (S/P/Bld) [Vol rate/Area]114 mL/min/{1.73_m2}- PINFCCleveland Clinic Union HospitalComment on above: Estimated Glomerular Filtration Rate (eGFR) is calculated using the 2020 CKD-EPI creatinine equation. This equation utilizes serum creatinine, sex, and age as parameters. The creatinine assay has traceable calibration to isotope dilution- mass spectrometry. Refer to KDIGO guidelines for clinical interpretation. In patients with unstable renal function, e.g. those with acute kidney injury, the eGFRmay not accurately reflect actual GFR.Glucose [Mass/Vol]109 mg/nKNgvz30 - 99 mg/dLSt. Mary'S Medical Center[facility]ont[facility] CampusComment on above:The [place] [employer] (ADA) provides guidance for cutoff values for fasting glucose andrandom glucose. The ADA defines fasting as no caloric intake for at least 8 hours. Fasting plasma gl ucose results between 100 to 125 mg/dL indicate [...] Standards of Medical Care in Diabetes 2016, [place] [employer]. Diabetes Care. 2016.39(Suppl 1). Interpretation and review of laboratory resultsAbnormalCleveland ClinicPotassium [Moles/Vol]4.5 mmol/L3.7 - 5.1 mmol/LCleveland ClinicProtein [Mass/Vol]6.9 g/dL 6.3 - 8.0 g/dLBonaparte ClinicSodium [Moles/Vol]138 mmol/L136 - 144 mmol/L Bonaparte ClinicUrea nitrogen [Mass/Vol]16 mg/dL7 - 21 mg/dLOhiohealth Van Wert Hospital ClinicAlbumin [Mass/Vol]4.4 g/dLNormal3.9-4.9Avon HospitalComment on above:Order Comment: Specimen Type: BLOOD SPECIMEN [facility]: [facility] Address: [address] [place], [place] [address] [id number] By: #### 28210-9 #### [facility] CLIA [id number] [address] [place] [address] [place] AMERICAALP [Catalytic activity/Vol]47 U/LNormal 34-123Avon HospitalComment on above:Order Comment: Specimen Type: BLOOD SPECIMEN [facility]: [facility] Address: [address] [place], [place] [address]Performed By: #### 69107-3 #### [facility] CLIA [id number] [address] [place] [address] [place] AMERICAALT [Catalytic activity/Vol]8 U/LNormal 7-38Avon HospitalComment on above:Order Comment: Specimen Type: BLOOD SPECIMEN [facility] Address: [address] [place], [place] [address]Performed By: #### 19213-5 #### [facility] IA [id number] [address] [place] [address] [place] AMERICAAnion gap [Moles/Vol]11 mmol/LNormal9-18 Charleston HospitalComment on above:Order Comment: Specimen Type: BLOOD SPECIMEN [facility] Address: [address] [place], [place] [address]Performed By: #### 40138-1 #### [facility] IA [id number] [address] [place] [address] [place] AMERICAAST [Catalytic activity/Vol]18 U/LNormal 13-35Avon HospitalComment on above:Order Comment: Specimen Type: BLOOD SPECIMEN [facility] Address: [address] [place], [place] [address]Performed By: #### 59920-1 #### [facility] IA [id number] [address] [place] [address] [place] AMERICABilirubin [Mass/Vol]0.4 mg/dLNormal 0.2-1.3Avon HospitalComment on above:Order Comment: Specimen Type: BLOOD SPECIMEN [facility] Address: [address] [place], [place] [address]Performed By: #### 63786-0 #### [facility] IA [id number] [address] [place] [address] [place] AMERICACalcium [Mass/Vol]9.6 mg/dLNormal8.5-10.2 Charleston HospitalComment on above:Order Comment: Specimen Type: BLOOD SPECIMEN [facility] Address: [address] [place], [place] [address]Performed By: #### 00886-3 #### [facility] IA [id number] [address] [place] [address] [place] AMERICAChloride [Moles/Vol]103 mmol/LNormal 97-105Av HospitalComment on above:Order Comment: Specimen Type: BLOOD SPECIMEN [facility] Address: [address] [place], [place] [address]Performed By: #### 61138-9 #### [facility] IA [id number] [address] [place] [address] [place] AMERICACO2 [Moles/Vol]24 mmol/KYwgdlp81-43Xqng HospitalComment on above:Order Comment: Specimen Type: BLOOD SPECIMEN [facility] Address: [address] [place], [place] [address]Performed By: #### 51883-6 #### [facility] IA [id number] [address] [place] [address] [place] AMERICACreatinine [Mass/Vol]0.75 mg/dLNormal 0.58-0.96Charleston HospitalComment on above:Order Comment: Specimen Type: BLOOD SPECIMEN [facility] Address: [address] [place], [place] [address]Performed By: #### 97011-9 #### [facility] IA [id number] [address] [place] [address] [place] AMERICACreatinine and Glomerular filtration rate.predicted panel (S/P/Bld)114 mL/min/1.73m???Normal>=60Av HospitalComment on above:Order Comment: Specimen Type: BLOOD SPECIMEN [facility] Address: [address] [place], [place] [address]Petqed Comment: Estimated Glomerular Filtration Rate (eGFR) is calculated using the 2020 CKD-EPI cre atinine equation. This equation utilizes serum creatinine, sex, and age as parameters. The creatinine assay has traceable calibration to isotope dilution- mass spectrometry. Refer to KDIGO guidelines for clinical interpretation. In patients with unstable renal function, e.g. those with acute kidney injury, the eGFR may not accurately reflect actual GFR.Performed By: #### 75009-3 #### [facility] CLIA [id number] [address] [place] [address] [place] AMERICAGlucose [Mass/Vol]109 mg/fDXlcq40-64Jsae HospitalComment on above:Order Comment: Specimen Type: BLOOD SPECIMEN [facility] Address: [address] [place], [place] [address]Rdjkwf Comment: The [place] [employer] Association (ADA) provides guidance for cutoff [...] Standards of Medical Care in Diabetes 2016, [place] [employer]. Diabetes Care. 2016.39(Suppl 1).Performed By: #### 74632-6 #### [facility] CLIA [id number] [address] [place] [address] [place] AMERICAPotassium [Moles/Vol]4.5 mmol/LNormal 3.7-5.1Avon HospitalComment on above:Order Comment: Specimen Type: BLOOD SPECIMEN [facility] Address: [address] [place], [place] [address]Wgjxgggfr By: #### 33640-0 #### [facility] CLIA [id number] [address] [place] [address] [place] AMERICAProtein [Mass/Vol]6.9 g/dLNormal6.3-8.0 [facility] CenterComment on above:Order Comment: Specimen Type: BLOOD SPECIMEN [facility] Address: [address] [place], [place] [address]Performed By: #### 08760-2 #### [facility] CLIA [id number] [address] [place] [address] [place] AMERICASodium [Moles/Vol]138 mmol/DCupcyg888-282 [facility] CenterComment on above:Order Comment: Specimen Type: BLOOD SPECIMEN [facility] Address: [address] [place], [place] [address]Performed By: #### 24357-3 #### [facility] IA [id number] [address] [place] [address] [place] AMERICAUrea nitrogen [Mass/Vol]16 mg/dLNormal 7-21Charleston HospitalComment on above:Order Comment: Specimen Type: BLOOD SPECIMEN [facility] Address: [address] [place], [place] [address]Performed By: #### 39210-4 #### [facility] IA [id number] [address] [place] [address] [place] AMERICAEosinophils/100 WBC Auto (Bld)on 88-79-8780Yytvknamfar/100 WBC (Bld)3.4 %[facility] Erythrocyte distribution width Auto (RBC) [Ratio]on 92-28-9100Mltjzmxmevf distribution width (RBC) [Ratio]11.6 %11.5-15.0[facility] HISTORY PHYSICALon 48-75-2763QMZISXN PHYSICALHNO ID: [id number] Author: MADHU CAUSEY PA-C Service: ? Author Type: Physician Diabetes Specialist Type: H&P Filed: 11/16/2023 07:41 Note Text: HISTORY AND PHYSICAL EXAMINATION SERVICE DATE: 11/15/2023 SERVICE TIME: 2:43 PM PRIMARY CARE PHYSICIAN: Analia Holldiay CNP REASON FOR VISIT: Chioma Alonzo is [...] SOB. Pulse today 75, regular rhythm today HCA9HF9-NKBQ- 0 Ejection Fraction - Result: 63 % [...] Prior to Admission medications as of 11/15/23 9209 Medication Sig Last Dose Taking dicyclomine (BENTYL) 20 mg tablet Take 1 tablet by mouth q 8 HR. Taking Yes escitalopram oxalate (LEXAPRO) 10 mg tablet Take 5 mg by mouth once daily. Taking Yes ondansetron (ZOFRAN) 4 mg tablet Take 4 mg by mouth as needed. Taking Differently Yes No (more content not included)...NormalAvon HospitalHematocrit Auto (Bld) [Volume fraction]on 67-92-7594Rgavhqjsnb (Bld) [Volume fraction]37.7 %36.0-46.0 [facility] HospitalHemoglobin [Mass/volume] in Bloodon 11-15-2023 Hemoglobin (Bld) [Mass/Vol]12.6 g/dL11.5-15.5FMercy Health St[facility] Laboratory - Chemistry and Chemistry - challengeon 98-67-9991Ohwhhth [Mass/Vol] 4.4 g/dL3.9-4.9[facility] HospitalALP [Catalytic activity/Vol]47 U/Z29-464ComqieabdSheltering Arms HospitalALT [Catalytic activity/Vol]8 U/L7-38 [facility] HospitalAST [Catalytic activity/Vol]18 U/L13-35 [facility] HospitalBilirubin [Mass/Vol]0.4 mg/dL0.2-1.3FMercy Health St. [facility] HospitalCalcium [Mass/Vol]9.6 mg/dL8.5-10.2FMercy Health St. [facility] HospitalChloride [Moles/Vol]103 mmol/E48-615RsqlhuaokSheltering Arms HospitalCO2 [Moles/Vol]24 mmol/P46-43KktzwfoteSheltering Arms HospitalCreatinine [Mass/Vol]0.75 mg/dL0.58-0.96[facility] HospitalGlucose [Mass/Vol] 109 mg/hU33-68SszujkdmlSheltering Arms HospitalComment on above:The [place] [employer] Association (ADA) provides guidance for cutoff values for fasting glucose andrandom glucose. The ADA defines fasting as no [...] hyperglycemia or hyperglycemic crisis, random plasma glucose resultsgreater than or equal to 200 mg/dL meet the criteria for diagnosis of diabetes.Reference: Standardsof Medical Care in Diabetes 2016, [place] [employer]. Diabetes Care. 2016.39(Suppl 1). Potassium [Moles/Vol]4.5 mmol/L3.7-5.1FKettering Memorial Hospitalodium [Moles/Vol]138 mmol/S897-381AfvndidahSheltering Arms HospitalUrea nitrogen [Mass/Vol]16 mg/dL7-21[facility] HospitalLaboratory - Hematology and Cell countson 90-31-4782Dflrpxxsjkv (Bld) [#/Vol]0.19 10*3/uL<0.46[facility] HospitalImmature granulocytes/100 WBC (Bld)0.2 %[facility] HospitalLeukocytes [#/volume] corrected for nucleated erythrocytes in Blood by Automated counon 35-58-7256HXB corrected for nucl RBC Auto (Bld) [#/Vol]5.57 k/uL3.70-11.00[facility] Lymphocytes Auto (Bld) [#/Vol]on 76-35-1315Ocbfhnschjt (Bld) [#/Vol]2.43 10*3/uL 1.00-4.00[facility] HospitalLymphocytes/100 WBC Auto (Bld)on 60-38-7803Ekwdrwrqgwm/100 WBC (Bld)43.6 %[facility] HospitalH Auto (RBC) [Entitic mass]on 63-27-3465XIC (RBC) [Entitic mass]31.9 pg26.0-34.0 [facility] HospitalMCHC Auto (RBC) [Mass/Vol]on 38-09-0097DNWZ (RBC) [Mass/Vol]33.4 g/dL30.5-36.0[facility] HospitalMCV Auto (RBC) [Entitic vol]on 76-14-6510AML (RBC) [Entitic vol]95.4 fL80.0-100.0 [facility] HospitalMonocytes Auto (Bld) [#/Vol]on 11-15-2023 Monocytes (Bld) [#/Vol]0.47 10*3/uL<0.87[facility] Monocytes/100 WBC Auto (Bld)on 56-58-5845Boinyvrew/100 WBC (Bld)8.4 %[facility] HospitalNeutrophils Auto (Bld) [#/Vol]on 53-34-8734Ejzjxpqmgeg (Bld) [#/Vol]2.43 10*3/uL1.45-7.50[facility] Neutrophils/100 WBC Auto (Bld)on 32-63-9984Xbyhhydwwcf/100 WBC (Bld)43.7 % [facility] HospitalNo Panel Informationon 88-98-2867Fdyhthnfb GFR (CKD-EPI)114 mL/min/1.73m???>=60S[facility] Arms HospitalComment on above:Estimated Glomerular Filtration Rate (eGFR) is calculated using the 2020 CKD-EPI creatinine equation. This equation utilizes serum creatinine, sex, and age as parameters. The creatinine assay has traceable calibration to isotope dilution-mass spectrometry. Refer to KDIGO guidelines for clinical inte rpretation. In patients with unstable renal function, e.g. those with acute kidney injury, the eGFRmay not accurately reflect actual GFR.Immature Granulocyte # (Auto)<0.03 k/uL<0.10[facility] HospitalNucleated RBC Auto (Bld) [#/Vol]on 69-93-6005Temwxzesq RBC (Bld) [#/Vol]10*3/uL<0.01 [facility] HospitalNucleated erythrocytes [Presence] in Blood by Automated counton 63-45-7922Rjktgydqu RBC Auto Ql (Bld)0.0 /100{WBC}[facility] HospitalPlatelet mean volume Auto (Bld) [Entitic vol]on 62-60-6124Plijogsq mean volume (Bld) [Entitic vol]10.5 fL9.0-12.7FMercy Health St. Elizabeth [facility] HospitalPlatelets Auto (Bld) [#/Vol]on 23-66-8633Nuwcixffq (Bld) [#/Vol]201 10*3/zL500-302WhmobygurSheltering Arms HospitalProtein [Mass/volume] in Serum or Plasmaon 81-88-1270Wbgcyux [Mass/Vol]6.9 g/dL6.3-8.0[facility] HospitalRBC Auto (Bld) [#/Vol]on 19-95-5970IXU (Bld) [#/Vol]3.95 10*6/uL3.90-5.20[facility] Systemerum or plasma anion gap determinationon 42-18-3742Bvhnf gap [Moles/Vol]11 mmol/L9-18FMercy Health St. 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 Prescriptions [...] 12/08/2022 Encounter Status:Closed by SEDRICK RUSHING on 11/05/23[facility] CenterChristine 97-61-2291OBZYUcrrdtdvc (CARDAV) CHIOMA ALONZO ([id number]) 2000 F Date Time Provider Department 10/30/23 SEDRICK RUSHING During your visit today, we recorded the following information about you: Juanis Cabello, RN 10/30/2023 11:14 AM Signed The pt is calling. Please review the my chart message from today for an EKG attachment she sent from her ED visit last night. She went to the [place] ED. Are you able to revue her [...] ongoing symptoms Staying hydrated Concerned Call CELL [phone] Leave Detailed messages Chichi Monroy RN 11/01/2023 3:25 PM Signed Called and [...] 12/08/2022 Encounter Status:Closed by CHICHI MONROY on 11/01/23NoBrecksville VA / Crille HospitalImtiaz 00-12-4433YJEUSybibnwcq (FAINA) CHIOMA ALONZO ([id number]) 2000 F Date Time Provider Department 10/23/23 SEDRICK RUSHING During your visit today, we recorded the following information about you: Wilfredo Avila OCCA 10/23/2023 1:53 PM Signed Received form requesting cardiac evaluation for surgical clearance from [facility] with Dr. Seema Davis. Surgery Date: 11-21-2023 Fax to [facility] Surgery: [phone] Rushing to review. CHATO Ramirez Cynthia, OCCA 12/07/2023 4:[address] Rushing filled out Cardiac Clearance Form. Faxed to [facility] Surgery at [phone]. Scanned into chart. CHATO Ramirez Allergies As [...] 12/08/2022 Encounter Status:Closed by WILFREDO AVILA on 10/23/23[facility] CenterCNMERRYTelephone ([facility]) CINDYCHIOMA Newberry Jovana ([id number]) 2000 F Date Time Provider Department 10/23/23 SEEMA DAVIS [facility] During your visit today, we recorded the following information about you: Kym Gray RN 10/23/2023 1:[address] Sedrick Rushing's office for cardiac clearance at [phone]. Abnormal heart sounds with gallbladder consult on [...] Fully Assessed Reason for Visit: Cardiac Clearance [8918] Prescriptions as of 10/23/2023 - dicyclomine (BENTYL) [...] 12/08/2022 Encounter Status:Closed by KYM GRAY on 10/23/23[facility] 74-54-8400GNWZGrsvmu Visit (CARINF) CHIOMA ALONZO Jovana ([id number]) 2000 F Date Time Provider Department 10/22/23 3:00 PM SEDRICK RUSHING CARINF During your visit today, we recorded the following information about you: Pulse Blood pressure Weight Height 40/minute 102/62 52.6 kg 1.626 m Sedrick Rushing MD 10/22/2023 3:17 PM [facility] [place] Iram Pathak Department of Cardiovascular Medicine SECTION OF REGIONAL CARDIOLOGY OUTPATIENT VISIT DATE October 21, 2023 OUTPATIENT VISIT TYPE NEW CONSULTATION PRIMARY CARE PHYSICIAN: Analia Holliday [address] [place] [address] CHIEF COMPLAINT: Palpitations HISTORY OF PRESENT ILLNESS: [...] Shortness of Breath, Unknown, Vomiting CURRENT MEDICATIONS: lkgrfy-occotrwz-tvifeej (CREON) 24,000-76,000 -120,000 unit delayed release capsule [...] on File Prior to Visit Medication Sig dtqdzu-jnjfdaci-rabupzc (CREON) 24,000-76,000 -120,000 unit delayed release capsule [...] Sedrick Rushing MD Cardiovascular Medicine Staff [facility] [address] [place] [address] Azael Larson LPN 10/22/2023 3:33 PM Signed EVENT MONITOR DISPOSABLE PATCH INSTRUCTIONS Patient Name: Chioma Alonzo Clinic Number: [id number] Skin prepped and cleansed with alcohol Patch secured to prepped area Monitor Activated Serial #: [id number] Patient Instructed: Prescribed order timeframe Bathing guidelines Usage of event button and diary documentation Return of monitor at the end of prescribed order Call with problems [phone] or [phone]. [phone] (more content not included)...NormalOhiohealth Van Wert HospitalCNOVon 10-19-2023 CNOVOffice Visit (GEMT) CINDYCHIOMA Newberry Jovana ([id number]) 2000 F Date Time Provider Department 10/19/23 2:20 PM SEEMA DAVISBriana During your visit today, we recorded the [...] Take 4 mg by mouth as needed. 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 Lives with her [...] the date of the service which included yjxi-bh-jfws patient care, completing clinical documentation, obtaining and/or reviewing separately obtained history, performing a medically appropriate examination, counseling and educating the patient/family/caregiver, and independently interpreting results (not separately reported). Seema Davis MD . Kym Gray RN 10/21/2023 9:18 PM Signed New [...] within normal limits Referring Provider: SEEMA DAVIS [[id number]] Allergies As of Date: 10/19/2023 Noted Allergy Reaction METRONIDAZOLE 09/07/2020 1 - Mental Status Change 6 - Diarrhea 8 - GI Upset 4 - Hives 14 - Other: See Comments 2 - Rash 12 - Shortness of Breath 16 - Unknown 11 - Vomiting Date Reviewed: 10/19/2023 (more content not included)...NormalTol[facility] COMPLETEon 13-14-7563JXY COMPLETEVentricular Rate : 67 BPM Atrial Rate : 67 BPM P-R Interval : 160 ms QRS Duration : 94 ms Q-T Interval : 402 ms QTC Calculation(Bazett) : 424 ms Calculated P [place] : 76 degrees Calculated R [place] : 37 degrees Calculated T [place] : 57 degrees NORMAL SINUS RHYTHM WITH SINUS ARRHYTHMIA POSSIBLE LEFT ATRIAL ENLARGEMENT RSR' PATTERN IN V1 SUGGESTS INCOMPLETE RIGHT BUNDLE BRANCH BLOCK BORDERLINE ECG NO PREVIOUS ECGS AVAILABLE Confirmed by JENNIFER SURESH MD ([id number]) on 10/22/2023 1:00:28 PM NAME : CHIOMA ALONZO PID : [id number] : 2000 Gender : Female Race : ORD : [id number] Procedure Date : Oct 19 2023 14:37:15 Edit Date : Oct 22 2023 13:00:33 Diagnosis: NORMAL SINUS RHYTHM WITH SINUS ARRHYTHMIA POSSIBLE LEFT ATRIAL ENLARGEMENT RSR' PATTERN IN V1 SUGGESTS INCOMPLETE RIGHT BUNDLE BRANCH BLOCK BORDERLINE ECG NO PREVIOUS ECGS AVAILABLE Confirmed by JENNIFER SURESH MD (79) on 10/22/2023 1:00:28 PM Test Reason : SVT Location : [facility] : [facility] Overread By : JENNIFER SURESH MD Edited By : JENNIFER SURESH MD Referred By : SEEMA DAVIS Acquired by : [id number],[facility] [id number] Telephone (LENA) CHIOMA ALONZO N ([id number]) 2000 F Date Time Provider Department 09/11/23 ISABELLE MENON During your visit today, we recorded the following information about you: Jose ManuelRj wilkinsoneen 09/11/2023 3:09 PM Signed Patient calling to see if she is to follow up with Dr. Menon. He did recommend surgeon consult for cholecystectomy. Patient is asking for referral Please adivse patient Gisela Ponce RN 09/11/2023 4:25 PM Signed Please refer to [facility] dated 09/11/2023. Gisela Ponce RN Allergies As [...] Update [1234] Prescriptions as of 09/11/2023 - htqwvt-hutmkwyh-mdxzsqe (CREON) 24,000-76,000 -120,000 unit delayed release capsule [...] 12/08/2022 Encounter Status:Closed by GISELA PONCE on 09/11/23[facility] POSTPROC EVALon 56-11-2074WEPW POSTPROC EVALHNO ID: [id number] Author: TERRY PIMENTEL MD Service: Anesthesiology Author Type: Anesthesiologist Type: Anesthesia Postprocedure Evaluation Filed: 09/06/2023 13:55 Note Text: POST ANESTHESIA EVALUATION NOTE : 2000 Procedure Summary Date: 09/06/23 Room / Location: [facility] Endoscopy - ENDO Anesthesia Start: 1244 Anesthesia Stop: 1327 Procedure: EGD - THERAPEUTIC, EUS, OR TUBE INTERVENTIONS Diagnosis: Chronic recurrent pancreatitis (HCC) Scheduled Providers: Isabelle Menon MD; Terry Pimentel MD; Elif Hess APRN.DRUG COORDINATOR Responsible Provider: Terry Pimentel MD Anesthesia Type: [...] September 06, 2023 TIME: 1:55 PM CSN: [id number] HospitalANES PRE-OPon 76-52-2052SBNR PRE-OPHNO ID: [id number] Author: TERRY PIMENTEL MD Service: Anesthesiology Author Type: Anesthesiologist Type: Anesthesia Preprocedure Evaluation Filed: 09/06/2023 10:56 Note Text: ANESTHESIOLOGY DAY OF SURGERY NOTE : 2000 Procedure Information Date/Time: 09/06/23 1130 Scheduled providers: Isabelle Menon MD; Terry Pimentel MD; Elif Hess APRN.DRUG COORDINATOR Procedure: EGD - THERAPEUTIC, EUS, OR TUBE INTERVENTIONS Location: [facility] Endoscopy - ENDO Estimated body mass [...] 10 mg by mouth once daily. - wkdefe-pyyerrkq-mrzuwku (CREON) 24,000-76,000 -120,000 unit delayed release capsule [...] September 06, 2023 TIME: 10:54 AM CSN: [id number]-Nervine Asylum [id number] Telephone (FVPRAD) CHIOMA ALONZO ([id number]) 2000 F Date Time Provider Department 09/06/23 [...] Fully Assessed Prescriptions as of 09/06/2023 - tawnet-dntpjhjs-focodny (CREON) 24,000-76,000 -120,000 unit delayed release capsule [...] 12/08/2022 Encounter Status:Closed by ISABELLE MENON on 09/06/23[facility] Study observation Narrativeon 90-56-5702Avdrlnzzg ClinicHISTORY PHYSICALon 38-33-6792CYDOQIT PHYSICALHNO ID: [id number] Author: ISABELLE MENON MD Service: Gastroenterology Author [...] mouth once daily. 09/05/2023 at 1000 Yes eijegb-ftdizbbw-migpcuw (CREON) 24,000-76,000 -120,000 unit delayed release capsule [...] Alonzo DATE: September 06, 2023 TIME: 12:20 [facility] [facility] 86-45-8581HVFILFE PROGHNO ID: [id number] Author: RICKIE GU RN Service: Nursing Author [...] Left Endo in satisfactory condition Rickie Gu RNBoston Sanatorium ID: [id number] Author: RICKIE GU RN Service: Nursing Author [...] REFERRAL (RECOMMENDATION): None Electronically Signed By: Rickie GuSaint Elizabeth's Medical Center EUSon 63-29-2364ZaurnBaystate [facility] Patient Name: Chioma Alonzo Procedure Date: 09/06/2023 12:16 PM Date of : 2000 Admit Type: Outpatient Age: 22 Room: [place] [address] Gender: Female Note Status: Finalized Attending MD: Isabelle Menon MD, [id number] Procedure: Upper EUS Indications: Abnormal abdominal/pelvic CT [...] for cholecystectomy. 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 All rights reserved. The codes documented in this report are preliminary and upon stamp classifier review may be revised to meet current compliance requirements. Attending Participation: I personally performed the entire procedure. Scope In: 12:53:03 PM Scope Out: 1:22:36 PM MD Isabelle Cedeno MD 09/06/2023 3:29:47 PM This report has been signed electronically by Isabelle Menon MD Number of Addenda: 0 Note Initiated On: 09/06/2023 12:16 PM Estimated Blood Loss: Estimated blood loss: none.NormalBaystate Mary Lane HospitalAlanine aminotransferase [Enzymatic activity/volume] in Serum or PlasmaOrdered By: Analia Holliday on 84-51-8808LOK [Catalytic activity/Vol]10 U/L7-52[facility] HospitalAlbumin [Mass/volume] in Serum or Plasma by Bromocresol green (BCG) dye binding methoOrdered By: Analia Holliday on 55-25-8093Krrwbci BCG dye [Mass/Vol]4.6 g/dL3.5-5.7FMercy Health St. [facility] HospitalAlkaline phosphatase [Enzymatic activity/volume] in Serum or PlasmaOrdered By: Analia Holliday on 01-59-0150MQA [Catalytic activity/Vol]44 U/Y65-623LjantfluwSheltering Arms HospitalAspartate aminotransferase [Enzymatic activity/volume] in Serum or PlasmaOrdered By: Analia Holliday on 50-56-7706QWT [Catalytic activity/Vol]16 U/L 13-39[facility] HospitalBasophils Auto (Bld) [#/Vol]Ordered By: Analia Holliday on 58-19-0881Qkulbrikw (Bld) [#/Vol]0.0 10*3/uL0.0-0.2FMercy Health St. Elizabeth [facility] HospitalBasophils/100 WBC Auto (Bld)Ordered By: Analia Holliday on 63-31-0516Ccvjkfhhn/100 WBC (Bld)0.8 %.[facility] Bilirubin.total [Mass/volume] in Serum or PlasmaOrdered By: Analia Holliday on 53-77-9061Bdnzbqmjc [Mass/Vol]0.6 mg/dL0.3-1.0[facility] Calcium [Mass/volume] in Serum or PlasmaOrdered By: Analia Holliday on 05-30-2023 Calcium [Mass/Vol]9.5 mg/dL8.6-10.3FMercy Health St. Elizabeth [facility] HospitalCarbon dioxide, total [Moles/volume] in Serum or PlasmaOrdered By: Analia Holliday on 57-75-9779OV2 [Moles/Vol]27.5 mmol/L21.0-31.0[facility] Chloride [Moles/volume] in Serum or PlasmaOrdered By: Analia Holliday on 76-06-1191Mrcrvlwa [Moles/Vol]106 mmol/B82-379CmwkdajipSheltering Arms Hospital Cholesterol [Mass/volume] in Serum or PlasmaOrdered By: Analia Holliday on 04-36-3047Ifzmcohvkdz [Mass/Vol]169 mg/bH965-691EdxlglagfSheltering Arms HospitalComment on above:Chol less than 200 mg/dl low riskChol 201-239 mg/dl borderline riskChol 240 mg/dl and greater high riskCholesterol in LDL Calc [Mass/Vol]Ordered By: Analia Holliday on 68-80-7975Dphgdfebbuu in LDL [Mass/Vol] 100 mg/dL0-100[facility] HospitalComment on above:LDL ATP III CLASSIFICATIONLDL less than 100 mg/dL OptimalLDL 100-129 mg/dL Near or above ljbshqzCQJ158-724 mg/dL Borderline highLDL 160-189 mg/dL HighLDL greater than 189 mg/dL Very highCholesterol in VLDL Calc [Mass/Vol]Ordered By: Analia Holliday on 36-89-1321Uareoqutdwk in VLDL [Mass/Vol]8 mg/dLSheltering Arms HospitalCreatinine [Mass/volume] in Serum or PlasmaOrdered By: Analia Holliday on 70-36-8221Cabpwacdis [Mass/Vol]0.66 mg/dL0.60-1.20[facility] HospitalEosinophils Auto (Bld) [#/Vol]Ordered By: Analia Holliday on 05-30-2023 Eosinophils (Bld) [#/Vol]0.2 10*3/uL0.0-0.45[facility] Eosinophils/100 WBC Auto (Bld)Ordered By: Analia Holliday on 05-30-2023 Eosinophils/100 WBC (Bld)3.8 %.[facility] HospitalErythrocyte distribution width Auto (RBC) [Ratio]Ordered By: Analia Holliday on 05-30-2023 Erythrocyte distribution width (RBC) [Ratio]12.3 %11.9-15.3FMercy Health St. [facility] HospitalFerritin [Mass/volume] in Serum or PlasmaOrdered By: Analia Holliday on 73-24-5437Ljwxdrdb [Mass/Vol]38.7 ng/mL11.0-306.8[facility] HospitalFolate [Mass/volume] in Serum or PlasmaOrdered By: Analia Holliday on 70-52-6453Dssyqm [Mass/Vol]23.0 ng/mL>5.9[facility] Comment on above:Folate reference range: >5.9 ng/mlThe WHO technical consultation on folate and vitamin h86uejdivulklzk has determined that folate concentrations lessthan 4 ng/ml are considered deficient.Globulin Calc (S) [Mass/Vol]Ordered By: Analia Holliday on 63-70-1242Wkzovdhm (S) [Mass/Vol]2.5 g/dLSheltering Arms HospitalGlucose [Mass/volume] in Serum or Plasma Ordered By: Analia Holliday on 54-24-6302Btzlsny [Mass/Vol]89 mg/kB37-854 [facility] HospitalHematocrit Auto (Bld) [Volume fraction]Ordered By: Analia Holliday on 04-21-5969Oajwpzzpao (Bld) [Volume fraction]39.8 % 34.0-46.4FMercy Health St. Elizabeth [facility] HospitalHemoglobin [Mass/volume] in Blood Ordered By: Analia Holliday on 23-35-1173Ncincqyrqb (Bld) [Mass/Vol]13.6 g/dL 11.8-15.4FMercy Health St. Elizabeth [facility] HospitalIron [Mass/volume] in Serum or Plasma Ordered By: Analia Holliday on 16-90-9653Ftgw [Mass/Vol]116 ug/tC60-366VzvtthhykSheltering Arms HospitalIron binding capacity [Mass/volume] in Serum or Plasma Ordered By: Analia Holliday on 36-61-5030Jmrh binding capacity [Mass/Vol]349 ug/hT764-374CzgurzckoSheltering Arms HospitalIron saturation [Mass Fraction] in Serum or PlasmaOrdered By: Analia Holliday on 31-79-5902Rprb saturation [Mass fraction]33.2 %20-50[facility] HospitalLeukocytes [#/volume] corrected for nucleated erythrocytes in Blood by Automated counOrdered By: Analia Holliday on 43-34-9914XCU corrected for nucl RBC Auto (Bld) [#/Vol]5.0 10*3/uL3.8-11.6FMercy Health St. Elizabeth [facility] HospitalLymphocytes Auto (Bld) [#/Vol] Ordered By: Analia Holliday on 00-41-8069Qekbofowzrv (Bld) [#/Vol]2.0 10*3/uL 1.00-4.8[facility] CenterLymphocytes/100 WBC Auto (Bld)Ordered By: Analia Holliday on 18-18-1888Foamzpmnvdx/100 WBC (Bld)39.3 %.[facility] HospitalH Auto (RBC) [Entitic mass]Ordered By: Analia Holliday on 91-19-8820QZC (RBC) [Entitic mass]31.6 pg24.7-34.3FMercy Health St. Elizabeth [facility] HospitalMCHC Auto (RBC) [Mass/Vol]Ordered By: Analia Holliday on 51-91-0542MSUT (RBC) [Mass/Vol]34.1 g/dL32.0-35.0[facility] HospitalMCV Auto (RBC) [Entitic vol]Ordered By: Analia Holliday on 36-07-5555GKB (RBC) [Entitic vol]92.6 kM31-486AxjwbhrqbSheltering Arms HospitalMonocytes Auto (Bld) [#/Vol] Ordered By: Analia Holliday on 00-54-1048Hgfcnkbog (Bld) [#/Vol]0.5 10*3/uL 0.0-0.8[facility] HospitalMonocytes/100 WBC Auto (Bld)Ordered By: Analia Holliday on 34-80-8323Tcsmwedmy/100 WBC (Bld)9.5 %.[facility] HospitalNeutrophils Auto (Bld) [#/Vol]Ordered By: Analia Holliday on 64-36-1701Opmojtqxepu (Bld) [#/Vol]2.3 10*3/uL1.8-7.7FMercy Health St. [facility] HospitalNeutrophils/100 WBC Auto (Bld)Ordered By: Analia Holliday on 05-30-2023 Neutrophils/100 WBC (Bld)46.6 %.[facility] HospitalNo Panel InformationOrdered By: Analia Holliday on 99-13-7463Bnymaisxf GFR (CKD-EPI)> 60.0 mL/MinSheltering Arms HospitalPharmacy Creatinine Clearance (ChemN/A [facility] HospitalNucleated erythrocytes [Presence] in Blood by Automated countOrdered By: Analia Holliday on 66-83-6909Mdzfaphbv RBC Auto Ql (Bld)0.1 /100{WBC}0-0.5FMercy Health St. Elizabeth [facility] HospitalPlatelet mean volume Auto (Bld) [Entitic vol]Ordered By: Analia Holliday on 94-21-5581Kcvfmqyy mean volume (Bld) [Entitic vol]9.7 fL6.3-10.7FMercy Health St. [facility] Hospital Platelets Auto (Bld) [#/Vol]Ordered By: Analia Holliday on 21-37-8438Jqkoaudkr (Bld) [#/Vol]198 10*3/qH379-556DewwylysgSheltering Arms HospitalPotassium [Moles/volume] in Serum or PlasmaOrdered By: Analia Holliday on 05-30-2023 Potassium [Moles/Vol]4.2 mmol/L3.5-5.1FMercy Health St. Elizabeth [facility] HospitalProtein [Mass/volume] in Serum or PlasmaOrdered By: Analia Holliday on 65-19-8097Oxxwcbl [Mass/Vol]7.1 g/dL6.4-8.9[facility] HospitalRBC Auto (Bld) [#/Vol] Ordered By: Analia Holliday on 97-10-8548EHY (Bld) [#/Vol]4.30 10*6/uL3.60-5.00 [facility] Systemerum or plasma albumin/globulin mass ratio Ordered By: Analia Holliday on 91-84-6842Urzkwfp/Globulin [Mass ratio]1.8 {ratio} [facility] Systemerum or plasma anion gap determinationOrdered By: Analia Holliday on 76-23-5934Ciwxd gap [Moles/Vol]8.7 mmol/L6.0-15.0[facility] Systemerum or plasma high density lipoprotein (HDL) cholesterol measurementOrdered By: Analia Holliday on 76-52-9927Syxsrlbmsbs in HDL [Mass/Vol]61 mg/jD66-00QgdmdhnlySheltering Arms HospitalComment on above:HDL CHOL ATP-III CLASSIFICATION Cardiovascular RiskHDL > or equal to 60 mg/dL LOWHDL < 40 mg/dL HIGHSerum or plasma total cholesterol/high density lipoprotein (HDL) cholesterol mass ratOrdered By: Analia Holliday on 05-30-2023 Cholesterol.total/Cholesterol in HDL [Mass ratio]2.8 {ratio}<5.0[facility] Systemodium [Moles/volume] in Serum or PlasmaOrdered By: Analia Holliday on 71-47-2900Pncjhz [Moles/Vol]138 mmol/N560-567NligcrafhSheltering Arms HospitalThyrotropin [Units/volume] in Serum or PlasmaOrdered By: Analia Holliday on 90-07-1165BNA Qn0.95 m[IU]/L0.45-5.33[facility] HospitalTransferrin [Mass/volume] in Serum or PlasmaOrdered By: Analia Holliday on 00-08-5194Bixmbkjlwbt [Mass/Vol]249 mg/eO294-361PvxqrfsmdSheltering Arms HospitalTriglyceride [Mass/volume] in Serum or PlasmaOrdered By: Analia Holliday on 06-58-4641Lgvnglmqiobw [Mass/Vol]42 mg/dL0-149[facility] HospitalComment on above:TRIG ATP III CLASSIFICATIONTRIG less than 150 mg/dL NormalTRIG 150-199 mg/dL Borderline highTRIG 200-500 mg/dL High TRIG greater than 500 mg/dL Very highStandard traceable to the Center for Disease Co nrtrol and Prevention (CDC) test method.Urea nitrogen [Mass/volume] in Serum or PlasmaOrdered By: Analia Holliday on 39-92-9618Fffh nitrogen [Mass/Vol]12 mg/dL 7-25[facility] HospitalVitamin B12 ser/plasOrdered By: Analia Holliday on 18-76-3381Rfcyqexan (Vitamin B12) [Mass/Vol]630 pg/vL722-890MeyeppjprSheltering Arms HospitalVitamin D+Metabolites [Mass/volume] in Serum or Plasma Ordered By: Analia Holliday on 89-52-6583Jgbfcnv D+Metabolites [Mass/Vol]27.7 ng/lW84-383QvmejwykwSheltering Arms HospitalComment on above:VITAMIN D STATUS 25(OH)VITAMIN D RANGE (ng/mL) Deficient <20 Insufficient 20 to <90Cnzihnoueq56 to 100Reference: Chichi MF,Manpreet NC, Doe MIKE, et al. Evaluation,treatment, and prevention of vitamin D deficiency; an Endocrine Society clinical practice guideline. JCEM. 2010; 96(7):1911-30.WBC Auto (Bld) [#/Vol]Ordered By: Analia Holliday on 78-60-8925IKW (Bld) [#/Vol]5.0 10*3/uL3.8-11.6FKindred Hospital Dayton HEALTHon 40-18-2626ACTJRN HEALTHHNO ID: [id number] Author: Yessi Adkins MRI Tech Service: Radiology Author Type: Paper Hanger Type: Allied Health Filed: 04/13/2023 3:14 [...] Alonzo DATE: April 13, 2023 TIME: 3:13 PMNWorcester State HospitalMR Abdomen WO and W contrast Eddie 04-13-2023 IMPRESSION: No MR findings of acute or chronic pancreatitis. No pancreatic divisum. Oracle Consultant: PSCB Transcribe Date/Time: Apr 13 2023 3:30P Dictated by : ERIC VILLAR MD This examination was interpreted and the report reviewed and electronically signed by: ERIC VILLAR MD on Apr 13 2023 3:50PM [facility] RAD[facility]* * *Final Report* * * DATE OF EXAM: Apr 13 2023 3:23PM [facility] 0689 - MRI ABDOMEN WO/W IVCON / [...] ascites. Osseous structures: No aggressive osseous lesions. [place] RADIOLOGYProvider, [facility] [place] - 04/13/2023 * * *Final Report* * * DATE OF EXAM: Apr 13 2023 3:23PM [facility] 0689 - MRI ABDOMEN WO/W IVCON / [...] acute or chronic pancreatitis. No pancreatic divisum. Oracle Consultant: PSCB Transcribe Date/Time: Apr 13 2023 3:30P Dictated by : ERIC VILLAR MD This examination was interpreted and the report reviewed and electronically signed by: ERIC VILLAR MD on Apr 13 2023 3:50PM EST [facility] CampusRadiology Study observation (narrative)[facility] [place] Abdomen WO and W contrast IVOrdered By: Ccf Provider on 05-94-2818Rutvfxttb ClinicMRI ABDOMEN WO/W IVCONon [id number] ABDOMEN WO/W IVCON* * *Final Report* * * DATE OF EXAM: Apr 13 2023 3:23PM [facility] 0689 - MRI ABDOMEN WO/W IVCON / [...] acute or chronic pancreatitis. No pancreatic divisum. [employer] Consultant: PSCB Transcribe Date/Time: Apr 13 2023 3:30P Dictated by : ERIC VILLAR MD This examination was interpreted and the report reviewed and electronically signed by: ERIC VILLAR MD on Apr 13 2023 3:50PM EST [id number] Medical Center 03-40-3534POVOCvurtgtqc (RGFV) CHIOMA ALONZO ([id number]) 2000 F Date Time Provider Department 04/12/23 MARIE ALTAMIRANO (CHENCHO) RGFV During your visit today, we recorded [...] mouth once daily for 10 days. - chlordiazePOXIDE-clidinium (LIBRAX) 5-2.5 mg per capsule Take 1 capsule by mouth three times daily with meals. - tirnsv-whficuin-jxrwcwk (ZENPEP) 40,000-126,000- 168,000 unit delayed release capsule [...] 12/08/2022 Encounter Status:Closed by MARIE SIMPSON on [facility]12/23[facility] HEPATOBIL[facility]AN W EFon 49-12-1557MJ HEPATOBILIARY SCAN W EF HEPATOBILIARY SCAN WITH [...] Electronically authenticated by: DARA CEDILLO Date: 2022-12-01 13:53Normal [facility] AND PARASITE EXAMINATIONon 50-51-3475Vxs + Parasite ExamFinal reportNoCleveland ClinicComment on above:Result Comment: These results were obtained using wet preparation(s) and trichrome stained smear. This test does not include testing for Cryptosporidium parvum, Cyclospora, or Microsporidia.Performed By: #### OVAPE #### [facility] [address] [place] [address] Dr. Timi Velasquez 1CommentNoCleveland ClinicComment on above:Result Comment: No ova, cysts, or parasites seen. . One negative specimen does not rule out the possibility of a parasitic infection.Performed By: #### OVAPE #### [facility] [address] [place] [address] Dr. Timi PraterAMYLASEon 04-17-0241Ywrnfzw [Catalytic activity/Vol]39 U/LNormal 25-115[facility] HospitalComment on above:Performed By: #### OVAPE #### [facility] [address] [place] [address] Dr. Timi Willett AUTO DIFFon 05-91-5844RVGO #0.1 103/ulNormal0.0-0.1[facility] HospitalComment on above:Performed By: #### CALPOO #### [facility] [address] [place] [address] Dr. Timi PraterBasophils/100 WBC (Bld)1.1 %Normal0.2-2.0[facility] Comment on above:Performed By: #### CALPOO #### [facility] [address] [place] [address] Dr. Timi Mejia #0.2 103/ulNormal0.0-0.7The [facility] AkronComment on above: Performed By: #### CALPOO #### [facility] [address] [place] [address] Dr. Timi Romeroosinophils/100 WBC (Bld)3.5 %Normal0.9-7.0[facility] Comment on above:Performed By: #### CALPOO #### [facility] [address] [place], [place] [id number] Dr. Timi Romerorythrocyte distribution width (RBC) [Ratio]11.5 %Oxvktr43.0-15.0 The [facility] - AkronComment on above:Performed By: #### CALPOO #### [facility] [address] [place] [address] Dr. Timi PraterHematocrit (Bld) [Volume fraction]39.8 %Gddnhv74.0-48.0The [facility] AkronComment on above:Performed By: #### CALPOO #### [facility] [address] [place] [address] Dr. Timi PraterHemoglobin (Bld) [Mass/Vol]13.7 g/tCOslusk43.0-16.0The [facility] AkronComment on above:Performed By: #### CALPOO #### [facility] [address] [place] [address] Dr. Timi Delong #0.01 10e3/ulNormal0.00-0.03The [facility] AkronComment on above:Performed By: #### CALPOO #### [facility] [address] [place] [address] Dr. Timi Delong %0.2 %Normal0.0-0.5The [facility] - AkronComment on above: Performed By: #### CALPOO #### [facility] [address] [place] [address] Dr. Timi MalcolmH #2.4 103/ulNormal1.2-3.8The [facility] - AkronComment on above:Performed By: #### CALPOO #### [facility] [address] [place] [address] Dr. Timi Obrienmphocytes/100 WBC (Bld)53.1 %Vwerzf60.5-60.0The [facility] - AkronComment on above:Performed By: #### CALPOO #### [facility] [address] [place] [address] Dr. Timi PraterMANUAL DIFF REQNONormalThe [facility] AkronComment on above: Performed By: #### CALPOO #### [facility] [address] [address] [address] Timi Escamilla (RBC) [Entitic mass]31.6 cmWkiqrz50.7-34.0The [facility] AkronComment on above:Performed By: #### CALPOO #### [facility] [address] [place] [address] Dr. Timi Escamilla (RBC) [Mass/Vol]34.4 g/hESkqozn90.9-35.2The [facility]ory HospitalComment on above:Performed By: #### CALPOO #### [facility] [address] [place] [address] Dr. Timi Escamilla (RBC) [Entitic vol]91.7 tVTizmbk24.0-99.0The [facility] AkronComment on above:Performed By: #### CALPOO #### [facility] [address] [place] [address] Dr. Timi Ortiz #0.4 103/ulNormal0.3-0.8The [facility] AkronComment on above:Performed By: #### CALPOO #### [facility] [address] [place] [address] Dr. Timi Turciosocytes/100 WBC (Bld)8.1 %Normal1.7-12.0The [facility] Comment on above:Performed By: #### CALPOO #### [facility] [address] [place] [address] Dr. Timi Mott #1.6 103/ulNormal1.4-6.5The [facility] AkronComment on above:Performed By: #### CALPOO #### [facility] [address] [place] [address] Dr. Timi Guzmanutrophils/100 WBC (Bld)34.0 %Critically low43.0-75.0The [facility] - AkronComment on above:Performed By: #### CALPOO #### [facility] [address] [place] [address] Dr. Timi Zamanlet mean volume (Bld) [Entitic vol]10.7 fLNormal9.5-13.5The [facility] AkronComment on above:Performed By: #### CALPOO #### [facility] [address] [place] [address] Dr. Timi PraterPLT192 103/qhMffdin621-302Jwn [facility] - AkronComment on above: Performed By: #### CALPOO #### [facility] [address] [place] [address] Dr. Timi PraterRBC4.34 106/ulNormal4.20-5.40The [facility] AkronComment on above:Performed By: #### CALPOO #### [facility] [address] [place] [address] Dr. Timi PraterWBC4.6 103/ulNormal4.0-11.0The [facility] - AkronComment on above: Performed By: #### CALPOO #### [facility] [address] [place] [address] Dr. Timi Blanchard PANEL (PCR)on 27-93-1210Wwdxknzbiq F 40/41Not detectedNormal NOT DETECTEDThe [facility] AkronComment on above:Performed By: #### CDIFPOC #### [facility] [address] [place] [address] Dr. Timi PraterAstrovirusNot detectedNormalNOT DETECTEDThe [facility] Comment on above:Performed By: #### CDIFPOC #### [facility] [address] [place] [address] Dr. Timi Gupta. Diff toxin A/BNot detectedNormalNOT DETECTEDThe [facility] AkronComment on above:Performed By: #### CDIFPOC #### [facility] [address] [place] [address] Dr. Timi ChupylobacterNot detectedNormalNOT DETECTEDThe [facility] Comment on above:Performed By: #### CDIFPOC #### [facility] [address] [place] [address] Dr. Timi PraterCryptosporidiumNot detectedNormalNOT DETECTEDThe [facility] AkronComment on above:Performed By: #### CDIFPOC #### [facility] [address] [address] [address] Timi Christensen. CayetanensisNot detectedNormalNOT DETECTEDThe [facility] AkronComment on above:Performed By: #### CDIFPOC #### [facility] [address] [address] [address] Timi Romero. Coli E622Ftr ApplicableNormalNot ApplicableThe [facility] AkronComment on above:Performed By: #### CDIFPOC #### [facility] [address] [address] [address] Timi Romero. histolyticaNot detectedNormalNOT DETECTEDThe [facility] Comment on above:Performed By: #### CDIFPOC #### [facility] [address] [address] [address] Timi RomeroAECNot detectedNormalNOT DETECTEDThe [facility] AkronComment on above:Performed By: #### CDIFPOC #### [facility] [address] [address] [address] Timi RomeroIECNot detectedNormalNOT DETECTEDThe [facility] AkronComup health system on above:Performed By: #### CDIFPOC #### [facility] [address] [address] [address] Timi RomeroPECNot detectedNormalNOT DETECTEDThe [facility] AkronComment on above:Performed By: #### CDIFPOC #### [facility] [address] [address] [address] Timi RomeroTECNot detectedNormalNOT DETECTEDThe [facility] AkronComment on above:Performed By: #### CDIFPOC #### [facility] [address] [address] [address] Timi Perez. LambliaNot detectedNormalNOT DETECTEDThe [facility] Comment on above:Performed By: #### CDIFPOC #### [facility] [address] [address] [address] Timi Burroughs CONTROLSPASSEDNormalThe [facility] AkronComment on above:Performed By: #### CDIFPOC #### [facility] [address] [address] [address] Timi Jay ANITA HEADERGI [facility] Comment on above:Performed By: #### CDIFPOC #### [facility] [address] [address] [address] Timi Moon ECOLIGI PANEL DIARRHEAGENIC E.COLI / SHIGELLALima City HospitalComment on above:Performed By: #### CDIFPOC #### [facility] [address] [place] [address] Dr. Timi Moon INFOSEE [facility] Health SystemComment on above: Result Comment: EAEC- Enteroaggregative E. Coli EPEC- Enteropathogenic E. Coli ETEC- Enterotoxigenic E. Coli lt/st STEC- Shigella-like toxin-producing E. Coli stx1/stx2 EIEC- Shigella/Enteroinvasive E. ColiPerformed By: #### CDIFPOC #### [facility] [address] [place] [address] Dr. Timi Moon PARASITESGI PANEL PARASITESLima City Hospital Comment on above:Performed By: #### CDIFPOC #### [facility] [address] [place] [address] Dr. Timi Moon VIRUSGI PANEL VIRUSESLima City HospitalComment on above:Performed By: #### CDIFPOC #### [facility] [address] [place] [address] Dr. Timi Heartrovirus GI/GIINot detectedNormalNOT DETECTEDThe [facility] AkronComment on above:Performed By: #### CDIFPOC #### [facility] [address] [address] [address] Timi Dorsey. ShigelloidesNot detectedNormalNOT DETECTEDThe [facility] AkronComment on above:Performed By: #### CDIFPOC #### [facility] [address] [address] [address] Timi PraterRotavirus ANot detectedNormalNOT DETECTEDSheltering Arms Hospital Comment on above:Performed By: #### CDIFPOC #### [facility] [address] [place] [address] Dr. Timi PraterSalmonellaNot detectedNormalNOT DETECTEDSheltering Arms Hospital Comment on above:Performed By: #### CDIFPOC #### [facility] Laboratory [address] [place] [address] Dr. Timi PraterSapovirusNot detectedNormalNOT DETECTEDThe [facility] Comment on above:Performed By: #### CDIFPOC #### [facility] Laboratory [address] [place] [address] Dr. Timi PraterSTECNot detectedNormalNOT DETECTEDThe [facility]ronComment on above:Performed By: #### CDIFPOC #### [facility] Laboratory [address] [place] [address] Dr. Timi PraterVibrioNot detectedNormalNOT DETECTEDThe [facility]ronComment on above:Performed By: #### CDIFPOC #### [facility] Laboratory [address] [place] [address] Dr. Timi Lopezio CholeraNot detectedNormalNOT DETECTEDSheltering [facility] Hospital Comment on above:Performed By: #### CDIFPOC #### [facility] Laboratory [address] [place] [address] Dr. Timi Wallis. EnterocoliticaNot detectedNormalNOT DETECTEDThe [facility]ronComment on above:Performed By: #### CDIFPOC #### [facility] Laboratory [address] [place] [address] Dr. Timi PraterLIPASEon 57-87-4265Qqjxsy [Catalytic activity/Vol]88.0 U/LNormal 73.0-393.0The [facility]ronComment on above:Performed By: #### OVAPE #### [facility] Laboratory [address] [place] [address] Dr. Timi PraterOCC BLD IMMUNO SCREENon [id number] BLOODNegativeNormal NEGATIVEThe [facility]ronComment on above:Performed By: #### CALPOO #### [facility] Laboratory [address] [place] [address] Dr. Timi TrujilloF 14(COMP METB)on 51-96-9904Gjupmul [Mass/Vol]4.2 g/dLNormal 3.4-5.0The [facility]ronComment on above:Performed By: #### CALPOO #### [facility] Laboratory [address] [address] [address] Timi PraterAlbumin/Globulin [Mass ratio]1.2 {ratio}NormalThe [facility]ronComment on above:Performed By: #### CALPOO #### [facility] Laboratory [address] [address] [address] Timi GreenbergP [Catalytic activity/Vol]55 U/DQfxoru60-315Nlk [facility]ronComment on above:Performed By: #### CALPOO #### [facility] Laboratory [address] [place] [address] Dr. Timi GreenbergT [Catalytic activity/Vol]14 U/QVxelhz98-96Wfa [facility]ronComment on above:Performed By: #### CALPOO #### [facility] Laboratory [address] [place] [address] Dr. Timi Salmon gap [Moles/Vol]11.9 mmol/LNormalThe [facility] Comment on above:Performed By: #### CALPOO #### [facility] Laboratory [address] [place] [address] Dr. Timi PraterAST [Catalytic activity/Vol]13 U/LCritically viq85-61Hkf [facility]ronComment on above:Performed By: #### CALPOO #### [facility] Laboratory [address] [place] [address] Dr. Timi PraterBilirubin [Mass/Vol]0.6 mg/dLNormal0.2-1.0The [facility] Comment on above:Performed By: #### CALPOO #### [facility] Laboratory [address] [place] [address] Dr. Timi PraterCalcium [Mass/Vol]9.4 mg/dLNormal8.5-10.1The [facility] Comment on above:Performed By: #### CALPOO #### [facility] Laboratory [address] [address] [address] Timi PraterChloride [Moles/Vol]104 mmol/NOpdesh30-551Tbk [facility] Comment on above:Performed By: #### CALPOO #### [facility] Laboratory [address] [address] [address] Timi PraterCO2 [Moles/Vol]26.6 mmol/ISgdjhn56.0-32.0The [facility] Comment on above:Performed By: #### CALPOO #### [facility] Laboratory [address] [address] [address] Timi PraterCreatinine [Mass/Vol]0.85 mg/dLNormal0.55-1.02The [facility]ronComment on above:Performed By: #### CALPOO #### [facility] Laboratory [address] [address] [address] Capellan ChangEGFR-AF BURMESE>60Normal>=60The [facility]ronComment on above:Performed By: #### CALPOO #### [facility] Laboratory [address] [address] [address] Timi RomeroGFR-NON AF BURMESE>60Normal>=60The [facility]ronComment on above:Performed By: #### CALPOO #### [facility] Laboratory [address] [address] [address] Timi PraterGlobulin (S) [Mass/Vol]3.6 g/dLNormalThe [facility]ronComment on above:Performed By: #### CALPOO #### [facility] Laboratory [address] [address] [address] Timi PraterGlucose [Mass/Vol]100 mg/cAElkzyo69-038Iyb [facility] Comment on above:Performed By: #### CALPOO #### [facility] Laboratory [address] [address] [address] Timi PraterPotassium [Moles/Vol]3.5 mmol/LNormal3.5-5.1The [facility] Comment on above:Performed By: #### CALPOO #### [facility] Laboratory [address] [address] [address] Timi PraterProtein [Mass/Vol]7.8 g/dLNormal6.4-8.2The [facility] Comment on above:Performed By: #### CALPOO #### [facility] Laboratory [address] [place] [address] Dr. Timi PraterSodium [Moles/Vol]139 mmol/QAymnlh767-592Dte [facility] Comment on above:Performed By: #### CALPOO #### [facility] Laboratory [address] [place] [address] Dr. Timi PraterUrea nitrogen [Mass/Vol]13.0 mg/dLNormal7.0-18.0The [facility]ronComment on above:Performed By: #### CALPOO #### [facility] Laboratory [address] [place] [address] Dr. Timi PraterUrea nitrogen/Creatinine [Mass ratio]15.3 mg/mgNormalThe [facility]ronComment on above:Performed By: #### CALPOO #### [facility] Laboratory [address] [place] [address] Dr. Timi Gupta. DIFF PCRon 3C. DIFFICILE PCRNegativeNormalNEGATIVEThe [facility]ronComment on above:Performed By: #### THYRABS #### [facility] Laboratory [address] [place] [address] Dr. Timi PraterPANCREATIC ELASTASE FECALon 99-90-0151Subjcrouos Elastase, Fecal 253 ug Elast./gNormal>200The [facility]ronComment on above:Result Comment: Severe Pancreatic Insufficiency: <100 Moderate Pancreatic Insufficiency: 100 - 200 Normal: >200Performed By: #### CALPOO #### [facility] Laboratory [address] [place] [address] Dr. Timi Chino SINGLE QUAD RT UPPERon [id number] SINGLE QUAD RT UPPEREXAM: US SINGLE QUAD RT UPPER HISTORY: . [...] Electronically authenticated by: DARA SAVAGE Date: 2022-10-31 08:39NoC[facility] AUTO DIFFon 94-05-0775NRHZ #0.1 103/ulNormal0.0-0.1The [facility]ronComment on above:Performed By: #### CBC #### [facility] Laboratory [address] [address] [address] Timi PraterBasophils/100 WBC (Bld)0.9 %Normal0.2-2.0[facility] Comment on above:Performed By: #### CBC #### [facility] Laboratory [address] [address] [address] Timi Mejia #0.1 103/ulNormal0.0-0.7The [facility]ronComment on above: Performed By: #### CBC #### [facility] Laboratory [address] [address] [address] Timi Romeroosinophils/100 WBC (Bld)2.6 %Normal0.9-7.0[facility] Comment on above:Performed By: #### CBC #### [facility] Laboratory [address] [address] [address] Timi Romerorythrocyte distribution width (RBC) [Ratio]11.9 %Pnjwnb14.0-15.0 The [facility]ronComment on above:Performed By: #### CBC #### [facility] Laboratory [address] [address] [address] Timi PraterHematocrit (Bld) [Volume fraction]41.0 %Ayouwn35.0-48.0The [facility]ronComment on above:Performed By: #### CBC #### [facility] Laboratory [address] [place] [address] Dr. Timi PraterHemoglobin (Bld) [Mass/Vol]14.2 g/xPIephzc62.0-16.0The [facility]ronComment on above:Performed By: #### CBC #### [facility] Laboratory [address] [place] [address] Dr. Timi Delong #0.02 10e3/ulNormal0.00-0.03The [facility]ronComment on above:Performed By: #### CBC #### [facility] Laboratory [address] [place] [address] Dr. Timi Delong %0.4 %Normal0.0-0.5The [facility]ronComment on above: Performed By: #### CBC #### [facility] Laboratory [address] [place] [address] Dr. Timi Webster #1.7 103/ulNormal1.2-3.8The [facility]ronComment on above:Performed By: #### CBC #### [facility] Laboratory [address] [place] [address] Dr. Timi Malcolmhocytes/100 WBC (Bld)31.2 %Ctknum85.5-60.0The [facility]Comup [facility] on above:Performed By: #### CBC #### [facility] Laboratory [address] [place] [address] Dr. Timi SandersUAL DIFF REQNONormalThe [facility]ronComment on above: Performed By: #### CBC #### [facility] Laboratory [address] [place] [address] Dr. Timi Escamilla (RBC) [Entitic mass]31.7 smMawznq56.7-34.0The [facility]ronComment on above:Performed By: #### CBC #### [facility] Laboratory [address] [place] [address] Dr. Timi Escamilla (RBC) [Mass/Vol]34.6 g/gJBcprww39.9-35.2The [facility]ronComment on above:Performed By: #### CBC #### [facility] Laboratory [address] [address] [address] Timi EscamillaV (RBC) [Entitic vol]91.5 aZZbammn85.0-99.0The [facility]ronComment on above:Performed By: #### CBC #### [facility] Laboratory [address] [address] [address] Timi Ortiz #0.5 103/ulNormal0.3-0.8The [facility] HospitalComment on above:Performed By: #### CBC #### [facility] Laboratory [address] [address] [address] Timi Turciosocytes/100 WBC (Bld)8.7 %Normal1.7-12.0The [facility] on above:Performed By: #### CBC #### [facility] Laboratory [address] [place] [address] Dr. Timi Mott #3.1 103/ulNormal1.4-6.5The [facility]ronComment on above:Performed By: #### CBC #### [facility] Laboratory [address] [place] [address] Dr. Timi Guzmanutrophils/100 WBC (Bld)56.2 %Cfcnvv99.0-75.0The [facility]ronComment on above:Performed By: #### CBC #### [facility] Laboratory [address] [place] [address] Dr. Timi Zamanlet mean volume (Bld) [Entitic vol]10.8 fLNormal9.5-13.5The [facility]ronComment on above:Performed By: #### CBC #### [facility] Laboratory [address] [place] [address] Dr. Timi PraterPLT219 103/oiQjbtcx070-177Ovh [facility]ronComment on above: Performed By: #### CBC #### [facility] Laboratory [address] [place] [address] Dr. Timi PraterRBC4.48 106/ulNormal4.20-5.40The [facility]ronComment on above:Performed By: #### CBC #### [facility] Laboratory [address] [place] [address] Dr. Timi PraterWBC5.4 103/ulNormal4.0-11.0The [facility]ronComment on above: Performed By: #### CBC #### [facility] Laboratory [address] [place] [address] Dr. Timi PraterPROF 14(COMP METB)on 47-80-9931Giginnn [Mass/Vol]4.5 g/dLNormal 3.4-5.0The [facility]ronComment on above:Performed By: #### CDIFPOC #### [facility] Laboratory [address] [place] [address] Dr. Timi PraterAlbumin/Globulin [Mass ratio]1.5 {ratio}NormalThe [facility]ronComment on above:Performed By: #### CDIFPOC #### [facility] Laboratory [address] [place] [address] Dr. Timi Oconnor [Catalytic activity/Vol]56 U/OXozfxj03-119Quh [facility]ronComment on above:Performed By: #### CDIFPOC #### [facility] Laboratory [address] [place] [address] Dr. Timi Pizarro [Catalytic activity/Vol]16 U/QXwxwfw14-10Twa [facility]ronComment on above:Performed By: #### CDIFPOC #### [facility] Laboratory [address] [place] [address] Dr. Timi Salmon gap [Moles/Vol]15.5 mmol/LNormalThe [facility] on above:Performed By: #### CDIFPOC #### [facility] Laboratory [address] [place] [address] Dr. Timi Vizcaino [Catalytic activity/Vol]13 U/LCritically dsh37-85Sey [facility]ronComment on above:Performed By: #### CDIFPOC #### [facility] Laboratory [address] [place] [address] Dr. Timi PraterBilirubin [Mass/Vol]0.6 mg/dLNormal0.2-1.0The [facility] Comment on above:Performed By: #### CDIFPOC #### [facility] Laboratory [address] [place] [address] Dr. Timi PraterCalcium [Mass/Vol]9.3 mg/dLNormal8.5-10.1[facility] Comment on above:Performed By: #### CDIFPOC #### [facility] Laboratory [address] [place] [address] Dr. Timi PraterChloride [Moles/Vol]104 mmol/XQobjne23-871Xbs [facility] Comment on above:Performed By: #### CDIFPOC #### [facility] Laboratory [address] [place] [address] Dr. Timi PraterCO2 [Moles/Vol]25.7 mmol/HFpamii72.0-32.0[facility] Comment on above:Performed By: #### CDIFPOC #### [facility] Laboratory [address] [place] [address] Dr. Timi PraterCreatinine [Mass/Vol]0.71 mg/dLNormal0.55-1.02The [facility]ronComment on above:Performed By: #### CDIFPOC #### [facility] Laboratory [address] [place] [address] Dr. Timi RomeroGFR-AF BURMESE>60Normal>=60The [facility]ronComment on above:Performed By: #### CDIFPOC #### [facility] Laboratory [address] [place] [address] Dr. Timi RomeroGFR-NON AF BURMESE>60Normal>=60The [facility]ronComment on above:Performed By: #### CDIFPOC #### [facility] Laboratory [address] [place] [address] Dr. Timi PraterGlobulin (S) [Mass/Vol]3.1 g/dLNormalThe [facility]ronComment on above:Performed By: #### CDIFPOC #### [facility] Laboratory [address] [place] [address] Dr. Timi PraterGlucose [Mass/Vol]77 mg/gTOwfjpd74-735PowSheltering Arms Hospital Comment on above:Performed By: #### CDIFPOC #### [facility] Laboratory [address] [place] [address] Dr. Timi PraterPotassium [Moles/Vol]4.2 mmol/LNormal3.5-5.1The [facility] Comment on above:Performed By: #### CDIFPOC #### [facility] Laboratory [address] [place] [address] Dr. Timi PraterProtein [Mass/Vol]7.6 g/dLNormal6.4-8.2The [facility] Comment on above:Performed By: #### CDIFPOC #### [facility] Laboratory [address] [place] [address] Dr. Timi PraterSodium [Moles/Vol]141 mmol/GOygboe012-237MamSheltering Arms Hospital Comment on above:Performed By: #### CDIFPOC #### [facility] Laboratory [address] [place] [address] Dr. Timi PraterUrea nitrogen [Mass/Vol]15.0 mg/dLNormal7.0-18.0The [facility]ronComment on above:Performed By: #### CDIFPOC #### [facility] Laboratory [address] [place] [address] Dr. Timi Villa nitrogen/Creatinine [Mass ratio]21.1 mg/mgNormalThe [facility]ronComment on above:Performed By: #### CDIFPOC #### [facility] Laboratory [address] [place] [address] Dr. Timi PraterLIPASEon 71-44-1034Fccscr [Catalytic activity/Vol]117.0 U/LNormal 73.0-393.0[facility] HospitalComment on above:Performed By: #### CDIFPOC #### [facility] Laboratory [address] [place] [address] Dr. Timi PraterCT ABD/PELV W CONon 07-12-2031RN ABD/PELV W CONEXAMINATION: CT ABD/PELV W CON HISTORY: Abdominal colic ; acute [...] Electronically authenticated by: AZAEL GRIFFIN Date: 2022-10-18 11:02[facility] HospitalCORTISOL 24HR URINEon 69-00-6236Juylvhau,F,ug/24hr,U19 ug/24 hr Normal6-42The [facility]ronComment on above:Performed By: #### CORT24 #### [facility] Laboratory [address] [place] [address] Dr. Timi PraterCortisol,F,ug/L,U18 ug/LNormalUndefinedSheltering Arms Hospital Comment on above:Performed By: #### QJQC21 #### [facility] Laboratory [address] [place] [address] Dr. Timi PraterCLOSTRIDIUM DIFFICILE PCRon 10-06-2022 difficile Toxin Gene RUCHI NegativeNormalNegativeSheltering Arms HospitalComup health system on above:Performed By: #### CALPOO #### [facility] Laboratory [address] [place] [address] Dr. Timi PraterREVERSE T3on 24-77-8425Vblxiyf T3, Serum19.3 ng/dLNormal9.2-24.1 The [facility]ronComup [facility] on above:Result Comment: This test was developed and its performance characteristics determined by [employer]. It has not been cleared or approved by the Food and Drug Administration.Performed By: #### OVAPE #### [facility] Laboratory [address] [place] [address] Dr. Timi PraterC. DIFF PCRon 09-28-2022. DIFFICILE PCRNegativeNormalNEGATIVEThe [facility]ronComment on above:Performed By: #### CDIFPOC #### [facility] Laboratory [address] [place] [address] Dr. Timi PraterFREE T4on 12-67-2630Vznh T4 [Mass/Vol]0.89 ng/dLNormal0.76-1.46 [facility] HospitalCom[facility] on above:Performed By: #### THYRABS #### [facility] Laboratory [address] [place] [address] Dr. Timi PraterCORTISOL Mely 78-72-4161Ushbrukn AM23.5 ug/dLCritically high 6.2-19.4The [facility]ronComment on above:Performed By: #### CDIFPOC #### [facility] Laboratory [address] [place] [address] Dr. Timi PraterTHYROID ANTIBODIESon 51-04-4317Trygxjdzhycxl Antibody<1.0Normal 0.0-0.9[facility] on above:Result Comment: Thyroglobulin Antibody measured by [employer] MethodologyPerformed By: #### THYRABS #### [facility] Laboratory [address] [place] [address] Dr. Timi PraterThyroid Peroxidase (TPO) Ab10 IU/mLNormal0-34The [facility] Healthment on above:Performed By: #### THYRABS #### [facility] Laboratory [address] [place] [address] Dr. Timi PraterT3, TOTAL (TRIIODOTHYRONINE)on 41-24-4971I5, IHUGW339 ng/dLNormal 71-180The [facility]ronComment on above:Performed By: #### OVAPE #### [facility] Laboratory [address] [place] [address] Dr. Timi PraterFREE T3on 57-48-6550QOQQ T32.65 pg/mlLNormal2.18-3.98The [facility]ronComup [facility] on above:Performed By: #### CDIFPOC #### [facility] Laboratory [address] [place] [address] Dr. Timi PraterTSHon 09-31-7856RUJ2.156 uIU/mLNormal0.358-3.740The [facility]ronComup health system on above:Performed By: #### CDIFPOC #### [facility] Laboratory [address] [place] [address] Dr. Timi Siddiqui PYLORI AG STOOLon 09-14-2022H. pylori Stool Ag, EIA NegativeNormalNegativeSheltering Arms HospitalComup health system on above:Performed By: #### HPYLORI #### [facility] Laboratory [address] [place] [address] Dr. Timi Gupta. DIFF PCRon 09-12-2022. DIFFICILE PCRNegativeNormalNEGATIVESheltering Arms HospitalComup health system on above:Performed By: #### CDIFPOC #### [facility] Laboratory [address] [place] [address] Dr. Timi Alvarado CULTUREon 21-69-9440Ehkidvifavgun CultureFinal reportNormal The [facility]ronComup health system on above:Performed By: #### OVAPE #### [facility] Laboratory [address] [place] [address] Dr. Timi Romero coli Shiga Toxin EIANegativeNormalNegativeThe [facility] Comment on above:Performed By: #### OVAPE #### [facility] Laboratory [address] [place] [address] Dr. Timi Velasquez 1CommentLima City HospitalComment on above:Result Comment: No Salmonella or Shigella recovered.Performed By: #### OVAPE #### [facility] Laboratory [address] [place] [address] Dr. Timi Velasquez Comment: No Campylobacter species isolated. Salmonella/Shigella ScreenFinal reportNoCleveland ClinicComment on above:Performed By: #### OVAPE #### [facility] Laboratory [address] [place] [address] Dr. Timi PraterCALPROTECTIN, FECALon 98-61-4456Szbvpbwayzma, Fecal<98Huvxfw1-448 [facility] HospitalComment on above:Result Comment: Concentration Interpretation Follow-Up <16 - 50 ug/g Normal None >50 -120 ug/g Borderline Re-evaluate in 4-6 weeks >120 ug/g Abnormal Repeat as clinically indicatedPerformed By: #### CALPOO #### [facility] Laboratory [address] [place] [address] Dr. Timi Gupta. DIFF PCRon 08-30-2022. DIFFICILE PCRNegativermalNEGATIVESheltering Arms HospitalComment on above:Performed By: #### OVAPE #### [facility] Laboratory [address] [place] [address] Dr. Timi PadronOSTRIDIUM DIFFICILE PCRon 08-26-2022 difficile Toxin Gene RUCHI NegativeNormalNegativeSheltering Arms HospitalComment on above:Performed By: #### CALPOO #### [facility] Laboratory [address] [place] [address] Dr. Timi Newman URINE PROFILEon 06-65-2989Vbzzawyir Ql (U)NegativeNormal NEGATIVESheltering Arms HospitalComment on above:Performed By: #### THYRABS #### [facility] Laboratory [address] [place] [address] Dr. Timi Padronarity (U)CLEARNormalCLEARSheltering Arms HospitalComment on above: Performed By: #### THYRABS #### [facility] Laboratory [address] [address] [address] Timi Powell (U)LT. YELLOWNormalYELLOWSheltering Arms HospitalComment on above:Performed By: #### THYRABS #### [facility] Laboratory [address] [address] [address] Timi Sue micrscopic examination will be performed if indicated. NormalThe [facility]ickory HospitalComment on above:Performed By: #### THYRABS #### [facility] Laboratory [address] [address] [address] Timi PraterGlucose Ql (U)NegativeNormalNEGATIVESheltering Arms HospitalComment on above:Performed By: #### THYRABS #### [facility] [address] [place] [address] Dr. Timi PraterHemoglobin Ql (U)NegativeNormalNEGATIVEThe University [facility] on above:Performed By: #### THYRABS #### [facility] [address] [place] [address] Dr. Timi PraterKetones Ql (U)NegativeNormalNEGATIVESheltering Arms HospitalComment on above:Performed By: #### THYRABS #### [facility] [address] [place] [address] Dr. Timi PraterLEUKOCYTESNegativeNormalNEGATIVESheltering Arms HospitalComment on above:Performed By: #### THYRABS #### [facility] [address] [place] [address] Dr. Timi PraterNitrite Ql (U)NegativeNormalNEGATIVESheltering Arms HospitalComment on above:Performed By: #### THYRABS #### [facility] [address] [address] [address] Timi PraterpH (U)7.0 [pH]Normal5-9Sheltering Arms HospitalComment on above: Performed By: #### THYRABS #### [facility] [address] [address] [address] Timi PraterSPEC GRAVITY1.576Uksbcg7.005-<=1.025The [facility] AkronComment on above:Performed By: #### THYRABS #### [facility] [address] [place] [address] Dr. Timi Nickerson PROTEINTRACENormalNEGATIVE/ TRACEThe [facility] AkronComment on above:Performed By: #### THYRABS #### [facility] [address] [place] [address] Dr. Timi Pinzon MICRO INDNOT INDICATEDNormalThe [facility] AkronComment on above:Performed By: #### THYRABS #### [facility] [address] [place] [address] Dr. Timi Acuña Qn (U)0.2 {Trini'U}/dLNormal0.2 - 1.0The [facility] AkronComment on above:Performed By: #### THYRABS #### [facility] [address] [place] [address] Dr. Timi Gupta. DIFF PCRon 08-22-2022. DIFFICILE PCRNegativeNormalNEGATIVEThe [facility] AkronComment on above:Performed By: #### CDIFPOC #### [facility] [address] [place] [address] Dr. Timi Rios IRTA ADMITon [id number] [Catalytic activity/Vol]56 U/L Ztcyii25-734Aie [facility] AkronComment on above:Performed By: #### OVAPE #### [facility] [address] [place] [address] Dr. Timi Pierre.MB [Mass/Vol]ng/mLNormal<=3.60The [facility] AkronComment on above:Performed By: #### OVAPE #### [facility] [address] [place] [address] Dr. Timi PraterHSTROP9.0 pg/mLNormal4.0-51.3The [facility] AkronComment on above:Result Comment: CUT-OFF POINTS HAVE BEEN ESTABLISHED BASED ON THE FOURTH UNIVERSAL DEFINITIONS OF MYOCARDIAL INFARCTION. THE UPPER REFERENCE LIMIT (URL) OF TROPONIN, DEFINED THE 99TH PERCENTILE OF cTnI DISTRIBUTION IN A REFERENCE POPULATION, HAS BEEN CONFIRMED THE DECISION THRESHOLD FOR [place] DIAGNOSIS.Performed By: #### OVAPE #### [facility] [address] [place] [address] Dr. Timi PraterMYO15 ng/mLNormal9-82Sheltering Arms HospitalComment on above: Performed By: #### OVAPE #### [facility] [address] [place] [address] Dr. Timi Willett AUTO DIFFon [id number] #0.1 103/ulNormal0.0-0.1The [facility] AkronComment on above:Performed By: #### CALPOO #### [facility] [address] [place] [address] Dr. Timi PraterBasophils/100 WBC (Bld)0.7 %Normal0.2-2.0[facility] Comment on above:Performed By: #### CALPOO #### [facility] [address] [place] [address] Dr. Timi Mejia #0.2 103/ulNormal0.0-0.7The [facility] AkronComment on above: Performed By: #### CALPOO #### [facility] [address] [place] [address] Dr. Timi Romeroosinophils/100 WBC (Bld)2.7 %Normal0.9-7.0[facility] Comment on above:Performed By: #### CALPOO #### [facility] [address] [place] [address] Dr. Timi Romerorythrocyte distribution width (RBC) [Ratio]11.9 %Uujgjk51.0-15.0 The [facility] AkronComment on above:Performed By: #### CALPOO #### [facility] [address] [place] [address] Dr. Timi PraterHematocrit (Bld) [Volume fraction]39.0 %Qzxphf51.0-48.0S[facility] HospitalComment on above:Performed By: #### CALPOO #### [facility] [address] [place] [address] Dr. Timi PraterHemoglobin (Bld) [Mass/Vol]13.3 g/oBZzrnuz99.0-16.0The [facility] AkronComment on above:Performed By: #### CALPOO #### [facility] [address] [place] [address] Dr. Timi Delong #0.02 10e3/ulNormal0.00-0.03The [facility] AkronComment on above:Performed By: #### CALPOO #### [facility] [address] [place] [address] Dr. Timi Delong %0.2 %Normal0.0-0.5The [facility] AkronComment on above: Performed By: #### CALPOO #### [facility] [address] [place] [address] Dr. Timi Malcolm #3.7 103/ulNormal1.2-3.8The [facility] AkronComment on above:Performed By: #### CALPOO #### [facility] [address] [place] [address] Dr. Timi Malcolmhocytes/100 WBC (Bld)43.6 %Ueutbf28.5-60.0The [facility]ronComment on above:Performed By: #### CALPOO #### [facility] [address] [place] [address] Dr. Timi SandersUAL DIFF REQNONormalThe [facility]ronComment on above: Performed By: #### CALPOO #### [facility] [address] [place] [address] Dr. Timi Escamilla (RBC) [Entitic mass]31.7 arGygmch27.7-34.0The [facility]ronComment on above:Performed By: #### CALPOO #### [facility] [address] [place] [address] Dr. Timi Escamilla (RBC) [Mass/Vol]34.1 g/kCXtglpw33.9-35.2The [facility]ronComment on above:Performed By: #### CALPOO #### [facility] [address] [place] [address] Dr. Timi EscamillaV (RBC) [Entitic vol]93.1 sMCivktd56.0-99.0The [facility] Healthment on above:Performed By: #### CALPOO #### [facility] [address] [place] [address] Dr. Timi Ortiz #0.8 103/ulNormal0.3-0.8The [facility] AkronComment on above:Performed By: #### CALPOO #### [facility] [address] [place] [address] Dr. Timi Turciosocytes/100 WBC (Bld)8.9 %Normal1.7-12.0The [facility] Comment on above:Performed By: #### CALPOO #### [facility] [address] [place] [address] Dr. Timi Mott #3.8 103/ulNormal1.4-6.5The [facility]ment on above:Performed By: #### CALPOO #### [facility] [address] [place] [address] Dr. Timi Guzmanutrophils/100 WBC (Bld)43.9 %Jkkscv32.0-75.0The [facility]Comup [facility] on above:Performed By: #### CALPOO #### [facility] [address] [place] [address] Dr. Timi Zamanlet mean volume (Bld) [Entitic vol]11.1 fLNormal9.5-13.5The [facility] Healthment on above:Performed By: #### CALPOO #### [facility] [address] [place] [address] Dr. Timi PraterPLT218 103/oxQwqtgj995-515Tiu [facility]Comup [facility] on above: Performed By: #### CALPOO #### [facility] [address] [place] [address] Dr. Timi PraterRBC4.19 106/ulCritically low4.20-5.40The [facility]ment on above:Performed By: #### CALPOO #### [facility] [address] [place] [address] Dr. Timi PraterWBC8.6 103/ulNormal4.0-11.0The [facility]ronComment on above: Performed By: #### CALPOO #### [facility] [address] [place] [address] Dr. Timi TrujilloF 14(COMP METB)on [id number] [Mass/Vol]4.2 g/dLNormal 3.4-5.0The [facility]ronComment on above:Performed By: #### OVAPE #### [facility] [address] [place] [address] Dr. Timi PraterAlbumin/Globulin [Mass ratio]1.3 {ratio}NormalThe [facility] AkronComment on above:Performed By: #### OVAPE #### [facility] [address] [place] [address] Dr. Timi GreenbergP [Catalytic activity/Vol]50 U/MYoynug91-921Eaz [facility] AkronComment on above:Performed By: #### OVAPE #### [facility] [address] [place] [address] Dr. Timi Pizarro [Catalytic activity/Vol]13 U/LCritically cnr31-39Tqb [facility]ronComment on above:Performed By: #### OVAPE #### [facility] [address] [place] [address] Dr. Timi Salmon gap [Moles/Vol]13.8 mmol/LNormalThe [facility] Comment on above:Performed By: #### OVAPE #### [facility] [address] [place] [address] Dr. Timi PraterAST [Catalytic activity/Vol]14 U/LCritically yur60-68Cja [facility] AkronComment on above:Performed By: #### OVAPE #### [facility] [address] [place] [address] Dr. Timi PraterBilirubin [Mass/Vol]0.4 mg/dLNormal0.2-1.0The [facility] Comment on above:Performed By: #### OVAPE #### [facility] [address] [address] [address] Timi PraterCalcium [Mass/Vol]9.2 mg/dLNormal8.5-10.1The [facility] Comment on above:Performed By: #### OVAPE #### [facility] [address] [address] [address] Timi PraterChloride [Moles/Vol]102 mmol/NNutoxy52-913Faw [facility] Comment on above:Performed By: #### OVAPE #### [facility] [address] [address] [address] Timi PraterCO2 [Moles/Vol]26.9 mmol/RJnhruy14.0-32.0The [facility] Comment on above:Performed By: #### OVAPE #### [facility] [address] [address] [address] Timi PraterCreatinine [Mass/Vol]0.73 mg/dLNormal0.55-1.02The [facility]ronComment on above:Performed By: #### OVAPE #### [facility] [address] [address] [address] Timi RomeroGFR-AF BURMESE>60Normal>=60The [facility]ronComment on above:Performed By: #### OVAPE #### [facility] [address] [address] [address] Timi RomeroGFR-NON AF BURMESE>60Normal>=60The [facility]ronComment on above:Performed By: #### OVAPE #### [facility] [address] [address] [address] Timi PraterGlobulin (S) [Mass/Vol]3.3 g/dLNormalThe [facility]ronComment on above:Performed By: #### OVAPE #### [facility] [address] [address] [address] Timi PraterGlucose [Mass/Vol]107 mg/dLCritically kttq82-141Kbx [facility]ronComment on above:Performed By: #### OVAPE #### [facility] [address] [address] [address] Timi PraterPotassium [Moles/Vol]3.7 mmol/LNormal3.5-5.1[facility] Comment on above:Performed By: #### OVAPE #### [facility] [address] [address] [address] Timi PraterProtein [Mass/Vol]7.5 g/dLNormal6.4-8.2[facility] Comment on above:Performed By: #### OVAPE #### [facility] [address] [address] [address] Timi PraterSodium [Moles/Vol]139 mmol/NMtwaeu631-237YnqSheltering Arms Hospital Comment on above:Performed By: #### OVAPE #### [facility] [address] [place] [address] Dr. Timi PraterUrea nitrogen [Mass/Vol]14.0 mg/dLNormal7.0-18.0[facility] HospitalComment on above:Performed By: #### OVAPE #### [facility] [address] [place] [address] Dr. Timi PraterUrea nitrogen/Creatinine [Mass ratio]19.2 mg/mgNoCleveland ClinicComment on above:Performed By: #### OVAPE #### [facility] [address] [place] [address] Dr. Timi Sanz ACOG PANEL 2: 21 to 29on 08-21-2022..NormalThe [facility]ronComment on above:Performed By: #### OVAPE #### [facility] [address] [place] [address] Dr. Timi Martinez Gdln ACOG Qmwtqnl65-43PmfdwbQgsCleveland ClinicComment on above:Performed By: #### OVAPE #### [facility] [address] [place] [address] Dr. Timi PraterDIAGNOSIS:CommentAbBlanchard Valley Health System Blanchard Valley HospitalComment on above: Result Comment: EPITHELIAL CELL ABNORMALITY. ATYPICAL SQUAMOUS CELLS OF UNDETERMINED SIGNIFICANCE (ASC-US).Performed By: #### OVAPE #### [facility] [address] [address] [address] Capellan ChangElectronically signed by:[facility] Comment on above:Result Comment: Maranda Segal MD, PathologistPerformed By: #### OVAPE #### [facility] [address] [address] [address] Timi PraterHPV AptimaNegativeNormalNegativeThe [facility] AkronComment on above:Result Comment: This nucleic acid amplification test detects fourteen high-risk HPV types (16,18,31,33,35,39,45,51,52,56,58,59,66,68) without differentiation.Performed By: #### OVAPE #### [facility] [address] [place] [address] Dr. Timi PraterMethodology:[facility] on above: Result Comment: This liquid based ThinPrep(R) pap test was screened with the use of an image guided system.Performed By: #### OVAPE #### [facility] [address] [place] [address] Dr. Timi PraterNote:CommentRiverside Methodist Hospital on above:Result Comment: The Pap smear is a screening test designed to aid in the detection of premalignant and malignant conditions of the uterine cervix. It is not a diagnostic procedure and should not be used as the sole means of detecting cervical cancer. Both false-positive and false-negative reports do occur. .Performed By: #### OVAPE #### [facility] [address] [address] [address] Timi PraterPathologist Provided [id number] Health Springfield Comment on above:Result Comment: [id number] By: #### OVAPE #### [facility] [address] [address] [address] Timi PraterPerformed by:[facility] on above: Result Comment: Melia Holguin, Nuclear Scientist (ASCP)Performed By: #### OVAPE #### [facility] [address] [place] [address] Dr. Timi PraterRecommendation:CommentAbSelect Medical Specialty [facility] on above:Result Comment: Suggest follow up as clinically appropriate.Performed By: #### OVAPE #### [facility] [address] [place] [address] Dr. Timi PraterReflex Criteria:CommentRiverside Methodist Hospital on above:Result Comment: See below for HPV testing results. .Performed By: #### OVAPE #### [facility] [address] [place] [address] Dr. Timi PraterSpecimen adequacy:CommentRiverside Methodist Hospital on above:Result Comment: Satisfactory for evaluation. Endocervical and/or squamous metaplastic cells (endocervical component) are present.Performed By: #### OVAPE #### [facility] [address] [place] [address] Dr. Timi Gupta. DIFF PCRon 07-27-2022. DIFFICILE PCRPositiveCritically abnormalNEGATIVEThe [facility] AkronComment on above:Performed By: #### THYRABS #### [facility] [address] [place] [address] Dr. Timi Gupta. DIFF PCRon 07-13-2022. DIFFICILE PCRNegativeNormalNEGATIVEThe [facility] AkronComment on above:Performed By: #### CDIFPOC #### [facility] [address] [place] [address] Dr. Timi PraterUS SINGLE QUAD RT UPPERon [id number] SINGLE QUAD RT UPPER EXAMINATION: US SINGLE [...] Electronically authenticated by: DARA HUMPHREY Date: 2022-05-11 17:22NormalThe [facility] - AkronFECAL FAT QUANTITATIVEon 55-01-4741Savcv Weight (Total)233 g NormalThe [facility] AkronComment on above:Performed By: #### CALPOO #### [facility] [address] [place] [address] Dr. Timi Gandhi, (Fecal Lipids)Qn1.3 g/24 hrNormal0.0-7.1The [facility] Healthment on above:Result Comment: This value is based on a 72 hour stool collection.Performed By: #### CALPOO #### [address] [address] Dr[address] Timi PraterLACTOFERRIN FECAL QUANTon 87-76-1093Soeqyflkizb, Fecal, Quant. <1.24Brncub8.00-7.24The [facility] on above:Result Comment: Results verified by repeat testing . Baseline (normal) [...] from those with non-inflammatory irritable bowel syndrome (IBS).Performed By: #### CALPOO #### [facility] [address] [place] [address] Dr. Timi PraterPANCREATIC ELASTASE FECALon 01-96-3628Vypoahgdme Elastase, Fecal 369 ug Elast./gNormal>200The [facility] on above:Result Comment: Severe Pancreatic Insufficiency: <100 Moderate Pancreatic Insufficiency: 100 - 200 Normal: >200Performed By: #### THYRABS #### [address] [address] Dr[address] Timi PraterC. DIFF PCRon 2C. DIFFICILE PCRNegativeNormalNEGATIVEThe Mercy Healthment on above:Performed By: #### OVAPE #### [facility] [address] [place] [address] Dr. Timi Blanchard PANEL (PCR)on [id number] F 40/41Not detectedNormal NOT DETECTEDThe [facility] AkronComment on above:Performed By: #### GIPANEL #### [facility] [address] [place] [address] Dr. Timi PraterAstrovirusNot detectedNormalNOT DETECTEDThe [facility] Comment on above:Performed By: #### GIPANEL #### [facility] [address] [place] [address] Dr. Timi Gupta. Diff toxin A/BNot detectedNormalNOT DETECTEDThe [facility]ronComment on above:Performed By: #### GIPANEL #### [facility] [address] [place] [address] Dr. Timi ChupylobacterNot detectedNormalNOT DETECTEDThe [facility] Comment on above:Performed By: #### GIPANEL #### [facility] [address] [place] [address] Dr. Timi TrevinoyptosporidiumNot detectedNormalNOT DETECTEDThe [facility] AkronComment on above:Performed By: #### GIPANEL #### [facility] [address] [place] [address] Dr. Timi Christensen. CayetanensisNot detectedNormalNOT DETECTEDThe [facility]ronComment on above:Performed By: #### MEREDITHANEL #### [facility] [address] [place] [address] Dr. Timi Santos Coli G278Chs ApplicableNormalNot ApplicableThe [facility] AkronComment on above:Performed By: #### GIPANEL #### [facility] [address] [place] [address] Dr. Timi Santos histolyticaNot detectedNormalNOT DETECTEDThe [facility] Comment on above:Performed By: #### GIPANEL #### [facility] [address] [place] [address] Dr. Timi RomeroAECNot detectedNormalNOT DETECTEDThe [facility] AkronComment on above:Performed By: #### GIPANEL #### [facility] [address] [address] [address] Timi Graham detectedNormalNOT DETECTEDThe [facility] AkronComment on above:Performed By: #### GIPANEL #### [facility] [address] [address] [address] Timi RomeroPECNot detectedNormalNOT DETECTEDThe [facility] AkronComment on above:Performed By: #### GIPANEL #### [facility] [address] [address] [address] Timi RomeroTEHaley detectedNormalNOT DETECTEDThe [facility] AkronComment on above:Performed By: #### MEREDITHANEL #### [facility] [address] [address] [address] Timi Rodriguez LambliaNot detectedNormalNOT DETECTEDThe [facility] Comment on above:Performed By: #### DAVEL #### [facility] [address] [address] [address] Timi BRYSONWooster Community HospitalComment on above:Performed By: #### MEREDITHANEL #### [facility] [address] [address] [address] Timi Jay ANITA HEADERGI [facility] Comment on above:Performed By: #### MEREDITHANEL #### [facility] [address] [address] [address] Timi Moon ECOLIGI PANEL DIARRHEAGENIC E.COLI / SHIGELLALima City HospitalComment on above:Performed By: #### MEREDITHANEL #### [facility] [address] [address] [address] Timi Moon INFOTogus VA Medical CenterComment on above: Result Comment: EAEC- Enteroaggregative E. Coli EPEC- Enteropathogenic E. Coli ETEC- Enterotoxigenic E. Coli lt/st STEC- Shigella-like toxin-producing E. Coli stx1/stx2 EIEC- Shigella/Enteroinvasive E. ColiPerformed By: #### GIPANEL #### [facility] [address] [address] [address] Timi Moon PARASITESGI PANEL [facility] Comment on above:Performed By: #### MEREDITHANEL #### [facility] [address] [address] [address] Timi Moon VIRUSGI PANEL VIRUSESLima City HospitalComment on above:Performed By: #### MEREDITHANEL #### [facility] [address] [address] [address] Timi Heartrovirus GI/GIINot detectedNormalNOT DETECTEDThe [facility] AkronComment on above:Performed By: #### MEREDITHANEL #### [facility] [address] [address] [address] Timi Ibanez ShigelloidesNot detectedNormalNOT DETECTEDThe [facility] AkronComment on above:Performed By: #### DAVEL #### [facility] [address] [address] [address] Timi PraterRotavirus ANot detectedNormalNOT DETECTEDSheltering Arms Hospital Comment on above:Performed By: #### DAVEL #### [facility] [address] [address] [address] Timi PraterSalmonellaNot detectedNormalNOT DETECTEDSheltering Arms Hospital Comment on above:Performed By: #### DAVEL #### [facility] [address] [address] [address] Timi PraterSapovirusNot detectedNormalNOT DETECTEDSheltering Arms Hospital Comment on above:Performed By: #### MEREDITHANEL #### [facility] [address] [address] [address] Timi PraterSTECNot detectedNormalNOT DETECTEDThe [facility]ronComment on above:Performed By: #### DAVEL #### [facility] [address] [address] [address] Timi PraterVibrioNot detectedNormalNOT DETECTEDThe [facility]ronComment on above:Performed By: #### GIPANEL #### [facility] [address] [address] [address] Timi Gregory CholeraNot detectedNormalNOT DETECTEDSheltering Arms Hospital Comment on above:Performed By: #### GIPANEL #### [facility] [address] [place] [address] Dr. Timi Wallis. EnterocoliticaNot detectedNormalNOT DETECTEDThe [facility]ronComment on above:Performed By: #### GIPANEL #### [facility] [address] [address] [address] Timi Alvarado CULTUREon [id number] CultureFinal reportNormal [facility] HospitalComment on above:Performed By: #### CXSTOOL #### [facility] [address] [place] [address] Dr. Timi pandey Shiga Toxin EIANegativeNormalNegativeSheltering Arms Hospital Comment on above:Performed By: #### CXSTOOL #### [facility] [address] [place] [address] Dr. Timi Velasquez 1CommentLima City HospitalComment on above:Result Comment: No Salmonella or Shigella recovered.Performed By: #### CXSTOOL #### [facility] [address] [place] [address] Dr. Timi Velasquez Comment: No Campylobacter species isolated. Salmonella/Shigella ScreenFinal reportNoCleveland ClinicComment on above:Performed By: #### CXSTOOL #### [facility] [address] [place] [address] Dr. Timi PadronOSTRIDIUM DIFFICILE PCRon 02-03-2022 difficile Toxin Gene RUCHI NegativeNormalNegativeSheltering Arms HospitalComup health system on above:Performed By: #### CDIFPOC #### [facility] [address] [place] [address] Dr. Timi Gupta. DIFF PCRon 01-14-2022. DIFFICILE PCRNegativeNormalNEGATIVEThe [facility]ronComment on above:Performed By: #### CALPOO #### [facility] [address] [address] [address] Capellan ChangEpatriciooscopy Reporton [id number] ReportMR#: [id number] [facility] Pt. Name: Chioma Henao Surgery Date: 12/29/2021 Room #: Z0 Date of : 2000 PROCEDURE NOTE ATTENDING: Paula Huggins MD PROCEDURE: Colonoscopy with FMT. INDICATION FOR PROCEDURE: Recurrent C diff. TYPE OF ANESTHESIA: Conscious sedation, 6 mg of Versed, 150 mcg of fentanyl, and 25 mg of Benadryl. ATOMIC PROCESS ENGINEER PHYSICIAN: Darren Baig M.D. QUALITY OF THE [...] Baig MD Date Trans: 12/30/2021 03:17 A/mmo DN_JN:[id number] cc: Gabino Owen M.D. [address], [place] [address]CazlghHydLima City Hospital SARS COV2 IDon [id number]-CoV-2 (COVID-19) RNA RUCHI+probe Ql (Unsp spec)NegativeNormal NEGATIVEThe [facility] North Health CenterComment on above:Result Comment: ID NOW COVID-19 assay performed on the ID NOW [...] Waiver, Certificate of Compliance, or Certificate of Accreditation.Performed By: #### [id number] #### [facility] [address] [place] [address], [facility] [place] URINE PREGNANCYon 80-95-0543Zume HCG ( test) Ql (U)NegativeNormalNEGATIVEThe [facility] Health CenterComment on above:Result Comment: Performed in PACUPerformed By: #### [id number] #### [facility] [address] [place] [address], [facility] Surgery Office/Clinic Noteon 78-30-0588Zwrwgch Surgery Office/Clinic NoteChief Complaint post operative follow up HPI Staff [...] Syncope Weight loss Procedure/Surgical History EGD - Esophagogastroduodenoscopy (06/29/2021), Removal of mole of skin by excision (07/23/2020), Extraction of wisdom tooth (07/23/2016). Medications sucralfate tab, 1 gm= 1 tab(s), Oral, QIDACHS Allergies No Known Allergies Social History Alcohol - Denies Alcohol Use, 06/21/2021 Substance Abuse - Denies Substance Abuse, 06/21/2021 Tobacco Never (less than 100 in lifetime) Tobacco Use:., 06/21/2021 Family History Cancer: Father. Stroke: Mother.[facility] CenterComment on above:Result Comment: Electronically Signed By: KALEB MACKEY, Ana Palmerbr\Date and Time Signed: 07/08/21 16:21 ESTPathology Noteon [id number] Note [id number]#1.00CD:[address] [place], [place] [address]Operative Reporton 24-94-7305Topxejpwf Report [id number]#1.00CD:[address] [place], [place] [address]Lab Reportson 58-38-3761Pqo Reports [id number]#1.00CD:[address] [place], [place] [address]Consent for Procedure/Surgeryon 98-75-0984Fptfnau for Procedure/Surgery [id number]#1.00CD:[address] [place], [place] [address] [place] 27-82-8030Zfezwclv Letter [facility] Gabino Owen, [address] [place] [address] Re: CHIOMA HENAO Date of : 2000 Thank you for your referral of Chioma Henao who was seen on consultation on 06/21/2021 for daily nausea with abdominal cramping. An EGD is planned for further evaluation. I have enclosed my consultation note for your review. I will be happy to follow Chimoa. Sincerely, Ana De La Cruz MD General SurgeryNoKindred HealthcareAmbulatory Clinical Summaryon 16-67-4040Rajdtpcohu Clinical Summary {[id number]-[id number]-fd-79-68}CD:[id number] HealthcarePhysician Referralon 33-64-3461Dtnnhxnok Referral [id number]#1.00CD:127NoKindred HealthcareCOVID Quick Testingon 92-34-9715DxfnlqKdkmspkcJyhiu Beta Dash Other S. pyogenes Ag Ql (Throat)on 05-05-2021. pyogenes Org specific cx Ql (Throat)NegativeNort Beta Dash Other Ambulatory Clinical Summaryon 37-53-9000Sdzyuqerip Clinical Summary{[id number]-[id number]-[id number]}CD:[id number] Memorial HospitalGeneral Surgery Office/Clinic Noteon 01-04-2021 General Surgery Office/Clinic NoteChief Complaint Post operative visit HPI Staff 6 [...] Use:., 01/04/2021 Family History Cancer: Father. Stroke: Mother.[facility] Medical CenterComment on above:Result Comment: Electronically Signed By: KALEB MACKEY, Ana Lan\Date and Time Signed: 01/04/21 14:32 EDTPathology Noteon 46-31-5908Cvmrkmffp Note [id number]#1.00CD:[address] [place], [place] [address]Outside Colonoscopyon 53-56-9290Hlrhqqo Colonoscopy [id number]#1.00CD:[address] [place], [place] [address]Lab Reportson 73-26-9215Ivc Reports [id number]#1.00CD:[address] [place], [place] [address]Consent for Procedure/Surgeryon 75-88-4813Apzjkls for Procedure/Surgery [id number]#1.00CD:[address] [place], [place] [address]Provider Letter FTMCon 07-14-7523Obqccves Letter [facility] [place]ino Owen, [facility] [place] [address] Re: CHIOMA HENAO Date of : 2000 Thank you for your referral of Chioma Henao who was seen on consultation on December 07, 2020, for colonoscopy due to abdominal pain and diarrhea. A colonoscopy is planned. I have enclosed my consultationnotes for your review. I will be happy to follow Chioma should her symptoms persist. Sincerely, Ana De La Cruz MD General SurgeryUpper Valley Medical CenterAmbulatory Clinical Summaryon 97-87-6585Ghepwiwmsm Clinical Summary {[id number]-[id number]-ar-0b-7c-0f-34}CD:[id number] HealthcarePatient Educationon 39-41-8607Dzhqdph EducationPreventive Health Exercising to Stay Healthy To become healthy and stay healthy, it is recommended that you do moderate- intensity and vigorous-intensity exercise. You can tell that you are exercising at a moderate intensity if your heart startsbeating faster and you start breathing faster but [...] Yard work, such as: ? Pushing a microwave supervisor. ? Raking and bagging leaves. ? Washing [...] exercising will help you keep a regular routineof activity. What guidelines can I follow while [...] 08/11/2011 Document Revised: 06/21/2018 Document Reviewed: 05/30/2018 [employer] Patient Education ? 2020 [employer] Radiology Colonoscopy, Adult A colonoscopy is [...] if you have certain (more content not included)...[facility] Physician Referralon 86-87-9365Jtltbttwa Referral [id number]#1.00CD:127NormalThe [facility] SystemNo Panel Informationon 50-33-1905Pgcgrgcqw Clinic Vital Signs Date TimeVital SignValuePerforming ZnqepkjsyWgndqffc04-09-1340 13:52-0400Body qqttle495.6 cmCorey Heike DO Work Phone: [facility] HospitalFxlzazqqqt53-46-7307 13:52-0400Body mass index (BMI) [Ratio]19.4 kg/t6Juhym Heike DO Work Phone: [phone] [place], [place] [address]Nmfougrulq27-97-7492 13:52-0400Body ljxwet64.26 kgCorey Heike DO Work Phone: [facility] HospitalDqoxrpruoe25-87-3676 13:52-0400Diastolic blood pmrpbnip15 mm[Hg]Jeremiah Heike DO Work Phone: [facility] HospitalAqusrycrty95-00-0862 13:52-0400Systolic blood ciialebi310 mm[Hg]Jeremiah Heike DO Work Phone: [facility] HospitalWfhhdybobd09-77-4390 09:59-0400Body sfybbi986.56 cmSheltering Arms Hospital04-23-2025 09:59-0400Body mass index (BMI) [Ratio]19.2 kg/f9KtviooiltSheltering Arms Hospital04-23-2025 09:59-0400Body uydljcoqutx96.3 [degF][facility]04-23-2025 09:59-0400Body rmamhf05.8 kgSheltering Arms Hospital04-23-2025 09:59-0400Diastolic blood olocuody98 mm[Hg][facility]04-23-2025 09:59-0400 Heart rate78 /minSheltering Arms Hospital04-23-2025 09:59-9128DhJ7% (BldA) [Mass fraction]98 %[facility]04-23-2025 09:59-0400 Systolic blood ubwqsdyj489 mm[Hg][facility]02-12-2025 11:00-0500Diastolic blood mvsjjuyj23 mm[Hg]Dara Butler Jr., DO Work Phone: [facility]02-12-2025 11:00-0500Heart rate67 /min Dara Butler Jr., DO Work Phone: [facility]02-12-2025 11:00-0500Respiratory rate 18 /minDleticia Butler Jr., DO Work Phone: [facility]02-12-2025 11:00-8818WmB1% (BldA) [Mass fraction]100 %Dara Butler Jr., DO Work Phone: [facility]02-12-2025 11:00-0500Systolic blood xrpqsuqs555 mm[Hg]Dara Butler Jr., DO Work Phone: [facility]02-12-2025 10:13-0500Body chuntb093.6 cmDabean Butler Jr., DO Work Phone: [facility]02-12-2025 10:13-0500Body mass index (BMI) [Ratio]19.74 kg/b9LvednDara Butler Jr., DO Work Phone: [facility]02-12-2025 10:13-0500Body temperature 98.4 [degF]Dara Butler Jr., DO Work Phone: [facility]02-12-2025 10:13-0500Body .16 kgDabean Butler Jr., DO Work Phone: [facility]12-24-2024 07:39-0500Body mass index (BMI) [Ratio]19.74 kg/b2SsugzwjaNae Ibarra MD Work Phone: [facility]12-24-2024 07:39-0500Body uqvqpu99.16 kgNae Ibarra MD Work Phone: [facility]12-24-2024 07:39-0500Diastolic blood udwwrgzv27 mm[Hg]Nae Ibarra MD Work Phone: [facility]12-24-2024 07:39-0500Heart rate80 /min Nae Ibarra MD Work Phone: [facility]12-24-2024 07:39-0500Systolic blood cgacgaxi03 mm[Hg]Nae Ibarra MD Work Phone: [facility]12-17-2024 14:18-0500Body .56 cmSheltering Arms Hospital12-17-2024 14:18-0500Body mass index (BMI) [Ratio]19.9 kg/m0JgrtqeptiSheltering Arms Hospital12-17-2024 14:18-0500Body vbkugkqzccn18.9 [degF][facility]12-17-2024 14:18-0500Body nqpsyo97.61 kgSheltering Arms Hospital12-17-2024 14:18-0500Diastolic blood kbwagtsz21 mm[Hg][facility]12-17-2024 14:18-0500 Heart rate77 /minSheltering Arms Hospital12-17-2024 14:18-3622KjA1% (BldA) [Mass fraction]98 %[facility]12-17-2024 14:18-0500 Systolic blood artibfwp538 mm[Hg][facility]12-12-2024 11:56-0500Body mass index (BMI) [Ratio]19.91 kg/z5Nsrfq Heike DO Work Phone: [facility] HospitalEjlxnjltda98-95-2959 11:56-0500Body .62 kgCorey Heike DO Work Phone: [facility] HospitalOhycherckh31-82-1681 11:56-0500Diastolic blood gjiluovm03 mm[Hg]Jeremiah Canoo DO Work Phone: [facility] HospitalXmmwwubmcf27-30-9807 11:56-0500Systolic blood uwfwsyxo303 mm[Hg]Jeremiah Canoo DO Work Phone: [facility] HospitalLggoayrpkb06-55-7583 10:38-0400Body .6 cmPaula Pretty MD Work Phone: [facility]10-09-2024 10:38-0400Body mass index (BMI) [Ratio]18.88 kg/h8QwbqjnbkPaula Pretty MD Work Phone: [facility]10-09-2024 10:38-0400Body lublay08.9 kgPaula Pretty MD Work Phone: [facility]10-09-2024 10:38-0400Diastolic blood nbfbkuin57 mm[Hg]Paula Pretty MD Work Phone: [facility]10-09-2024 10:38-0400Heart rate86 /min Paula Pretty MD Work Phone: [facility]10-09-2024 10:38-0400Respiratory rate 18 /minPaula Pretty MD Work Phone: [facility]10-09-2024 10:38-0400Systolic blood ydulxxoz464 mm[Hg]Paula Pretty MD Work Phone: [facility]09-25-2024 10:51-0400Diastolic blood ejyycscn07 mm[Hg]Whitney Ambriz MD MPH Work Phone: [facility]09-25-2024 10:51-0400 Heart rate68 /Wolf Ambriz MD MPH Work Phone: [facility]09-25-2024 10:51-0400 Respiratory rate18 /Wolf Ambriz MD MPH Work Phone: [facility]09-25-2024 10:51-0400 SaO2% (BldA) [Mass fraction]100 %Whitney Ambriz MD MPH Work Phone: [facility]09-25-2024 10:51-0400 Systolic blood gucbvmsj09 mm[Hg]Whitney Ambriz MD MPH Work Phone: [facility]09-25-2024 10:21-0400 Body zkghiabskuz75.2 [degF]Whitney Ambriz MD MPH Work Phone: [phone] [place], [place] 2065909-25-2024 08:23-0400 Body wsjdeh886.6 cmLalbina Ambriz MD MPH Work Phone: 2(920)320-[address] [place], [place] 2065909-25-2024 08:23-0400 Body mass index (BMI) [Ratio]19.74 kg/i7SimogWhitney Ambriz MD MPH Work Phone: [phone]09-25-2024 08:23-0400 Body earpyl56.16 kgWhitney Ambriz MD MPH Work Phone: [facility]09-04-2024 10:52-0400 Body mwpuhs810.6 cmPaula Pretty MD Work Phone: [facility]09-04-2024 10:52-0400Body mass index (BMI) [Ratio]18.88 kg/a3XtszltkaPaula Prtety MD Work Phone: [facility]09-04-2024 10:52-0400Body lxbuhy85.9 kgPaula Pretty MD Work Phone: [facility]09-04-2024 10:52-0400Diastolic blood ompyxodd49 mm[Hg]Paula Pretty MD Work Phone: [phone]09-04-2024 10:52-0400Heart rate81 /min Paula Pretty MD Work Phone: [facility]09-04-2024 10:52-0400Respiratory rate 16 /minaPula Pretty MD Work Phone: [place] [address]-04-2024 10:52-0400Systolic blood rwphebaj777 mm[Hg]Paula Pretty MD Work Phone: [facility]08-28-2024 13:20-0400Body gyrcjf534.56 cmDO Ana Adejarrod Work Phone: [phone]08-28-2024 13:20-0400 Body mass index (BMI) [Ratio]19.2 kg/m2DO Ana Bolton Work Phone: [phone]08-28-2024 13:20-0400 Body .8 kgDO Ana Bolton Work Phone: [phone])[address]08-28-2024 13:20-0400 Diastolic blood rcghxpei06 mm[Hg]DO Ana Bolton Work Phone: [phone]08-28-2024 13:20-0400 Heart rate78 /minDO Ana Bolton Work Phone: 1(237)368-[address] [place], [place] 4567808-28-2024 13:20-0400 SaO2% (BldA) [Mass fraction]99 %DO Ana Pachecojalenjarrod Work Phone: 1(632)431-[address] [place], [place] 4567808-28-2024 13:20-0400 Systolic blood mm[Hg]DO Ana Pachecojalenjarrod Work Phone: 1(749)904-[address] [place], [place] 4567808-14-2024 14:15-0400 Body mass index (BMI) [Ratio]18.19 kg/m2CyzxcWhitney Ambriz MD MPH Work Phone: [facility]08-14-2024 14:15-0400 Body ozokmj49.08 Addison Ambriz MD MPH Work Phone: [facility]08-14-2024 14:15-0400 Diastolic blood fmbijhsm62 mm[Hg]Whitney Ambriz MD MPH Work Phone: [facility]08-14-2024 14:15-0400 Heart rate97 /Wolf Ambriz MD MPH Work Phone: [facility]08-14-2024 14:15-0400 Systolic blood scsoqzfq658 mm[Hg]Whitney Ambriz MD MPH Work Phone: [facility]08-06-2024 15:21-0400 Body bpjkav104.6 Neri Braden MD Work Phone: [phone]08-06-2024 15:21-0400Body mass index (BMI) [Ratio]19.38 kg/m4JnwvrBola Braden MD Work Phone: [phone]08-06-2024 15:21-0400Body temperature 98.2 [degF]Bola Braden MD Work Phone: [phone]08-06-2024 15:21-0400Body qbrzay91.26 kgBola Braden MD Work Phone: [phone]08-06-2024 15:21-0400Diastolic blood dfesiqke39 mm[Hg]Bola Braden MD Work Phone: [phone]08-06-2024 15:21-0400Heart rate65 /min Bola Braden MD Work Phone: [phone]08-06-2024 15:21-0400Systolic blood chhhahdv145 mm[Hg]Bola Braden MD Work Phone: [phone]07-16-2024 14:42-0400Body qaeful686.6 cmWkelly Merida MD Work Phone: [facility]07-16-2024 14:42-0400 Body mass index (BMI) [Ratio]19.14 kg/l2DmisorDane Merida MD Work Phone: [facility]07-16-2024 14:42-0400 Body vlmhge91.58 kgDane Merida MD Work Phone: [facility]07-16-2024 14:42-0400 Diastolic blood mm[Hg]Dane Merida MD Work Phone: [facility]07-16-2024 14:42-0400 Heart rate77 /Francesca Merida MD Work Phone: [facility]07-16-2024 14:42-0400 Respiratory rate18 /Francesca Merida MD Work Phone: [facility]07-16-2024 14:42-0400 Systolic blood nrukyngy350 mm[Hg]Dane Merida MD Work Phone: [facility]06-20-2024 09:24-0400 Body hefyhz816.6 cmMckenzie Shepherd ACID POLYMERIZATION OPERATOR-CONCRETE SCULPTOR Work Phone: [facility]06-20-2024 09:24-0400Body mass index (BMI) [Ratio]19.53 kg/w0Zeszviu Shephred ACID POLYMERIZATION OPERATOR-CONCRETE SCULPTOR Work Phone: [facility]06-20-2024 09:24-0400Body hrteec24.62 kgMckenzie Shepherd ACID POLYMERIZATION OPERATOR-CONCRETE SCULPTOR Work Phone: [facility]06-20-2024 09:24-0400Diastolic blood ysrupimn11 mm[Hg]Mckenzie Shepherd ACID POLYMERIZATION OPERATOR-CONCRETE SCULPTOR Work Phone: [facility]06-20-2024 09:24-0400Heart rate 73 /minMckenzie Shepherd ACID POLYMERIZATION OPERATOR-CONCRETE SCULPTOR Work Phone: [facility]06-20-2024 09:24-0400Systolic blood iyynygel299 mm[Hg]Mckenzie Mendozaoll ACID POLYMERIZATION OPERATOR-CONCRETE SCULPTOR Work Phone: [facility]05-15-2024 13:45-0400Body ssyfwh944.6 cmAriella Mccoy ACID POLYMERIZATION OPERATOR.CONCRETE SCULPTOR Work Phone: cC[facility] HospitalOiarjw95-63-7975 13:45-0400Body mass index (BMI) [Ratio]19.22 kg/e6ZiwptahAriella Mccoy ACID POLYMERIZATION OPERATOR.CONCRETE SCULPTOR Work Phone: [place] Dwoofi91-77-9483 13:45-0400Body temperature 98.01 [degF]Ariella Mccoy ACID POLYMERIZATION OPERATOR.CONCRETE SCULPTOR Work Phone: AC[facility] HospitalNjsysw64-35-7259 13:45-0400Body eicrwh30.8 kgAriella Mccoy ACID POLYMERIZATION OPERATOR.CONCRETE SCULPTOR Work Phone: ZC[facility] Union HospitalJykwap98-73-7375 13:45-0400Diastolic blood bexhuptb42 mm[Hg]Ariella Mccoy ACID POLYMERIZATION OPERATOR.CONCRETE SCULPTOR Work Phone: YC[facility] Clinic Union HospitalZkdkdp98-38-5329 13:45-0400Heart rate90 /min Ariella Mccoy ACID POLYMERIZATION OPERATOR.CONCRETE SCULPTOR Work Phone: UC[facility] HospitalDwgwbl77-59-2925 13:45-2739WzZ7% (BldA) [Mass fraction]99 %Ariella Mccoy ACID POLYMERIZATION OPERATOR.CONCRETE SCULPTOR Work Phone: VC[facility] HospitalKsexdb58-95-6926 13:45-0400Systolic blood mm[Hg]Ariella Mccoy ACID POLYMERIZATION OPERATOR.CONCRETE SCULPTOR Work Phone: LC[facility] HospitalMtqtoy85-35-1106 11:15-0400Body gwibcw507.56 cmS[facility]05-09-2024 11:15-0400Body mass index (BMI) [Ratio]18.7 kg/s1LxvbtdzzqSheltering Arms Hospital05-09-2024 11:15-0400Body ftfysz34.58 kgSheltering Arms Hospital05-09-2024 11:15-0400Diastolic blood mm[Hg][facility]05-09-2024 11:15-0400 Heart rate83 /[facility]05-09-2024 11:15-0400 Respiratory rate18 /[facility]05-09-2024 11:15-0400 SaO2% (BldA) [Mass fraction]98 %[facility]05-09-2024 11:15-0400Systolic blood mm[Hg][facility] 11-15-2023 14:44-0400Body .6 cmPacc 1 Other Phone: [facility]04-25-2024 14:44-0400Body mass index (BMI) [Ratio]20.06 kg/m2Pacc 1 Other Phone: [place] [address]-25-2024 14:44-0400Body temperature 97.11 [degF]Pacc 1 Other Phone: [phone] [address]-25-2024 14:44-0400Body sahynk40 kg Pacc 1 Other Phone: [phone] [address]-25-2024 14:44-0400Diastolic blood lxsniysk52 mm[Hg]Pacc 1 Other Phone: [phone] [address]-25-2024 14:44-0400Heart rate75 /minPacc 1 Other Phone: [phone] [address]-25-2024 14:44-0400Respiratory rate 18 /minPacc 1 Other Phone: [phone] [address]-25-2024 14:44-1759RfQ4% (BldA) [Mass fraction]100 %Pacc 1 Other Phone: [phone] [address]-25-2024 14:44-0400Systolic blood vxjmpuso311 mm[Hg]Pacc 1 Other Phone: [place] [address]-01-2024 14:44-0400Body wpnzbo590.6 cmAevan Rushing MD Work Phone: [facility]04-01-2024 14:44-0400Body watjdh90.62 kgSedrick Rushing MD Work Phone: [place] [address]-01-2024 14:44-0400Diastolic blood eeixdhjx90 mm[Hg]Sedrick Rushing MD Work Phone: [place] [address]-01-2024 14:44-0400Heart rate40 /min Sedrick Rushing MD Work Phone: [place] [address]-01-2024 14:44-0400Systolic blood sihfezev698 mm[Hg]Sedrick Rushing MD Work Phone: [facility]02-15-2024 14:00-0500Heart rate68 /min Isabelle Menon MD Work Phone: cC[facility] Union HospitalJouure49-17-4534 14:00-0500Respiratory rate 22 /minIsabelle Menon MD Work Phone: 1(566)532-[address] [place], [place] 6603902-15-2024 14:00-7243WaK3% (BldA) [Mass fraction]100 %Isabelle Menon MD Work Phone: 1(277)998-[address] [place], [place] 6603902-15-2024 13:45-0500Diastolic blood umavlxpq42 mm[Hg]Isabelle Menon MD Work Phone: cC[facility] HospitalDirwpj57-05-1251 13:45-0500Systolic blood wiiymuak631 mm[Hg]Isabelle Menon MD Work Phone: 1(110)958-[address] [place], [place] 6603902-15-2024 13:27-0500Body temperature 97.2 [degF]Isabelle Menon MD Work Phone: 1(726)828-[address] [place], [place] 6603911-15-2023 11:42-0500Body dbnlqu49.26 kgIsabelle Menon MD Work Phone: c[id number] 11:42-0500Diastolic blood mm[Hg]Isabelle Menon MD Work Phone: 1(092)169-[address] [place], [place] 6603911-15-2023 11:42-0500Heart rate87 /min Isabelle Menon MD Work Phone: [facility] [id number] 11:42-0500Systolic blood ftzfauco382 mm[Hg]Isabelle Menon MD Work Phone: [facility] HospitalEgcapp09-16-5955 11:30-0400Body .56 cmAnalia Holliday Other [employer] Other 11-02-2023 11:30-0400Body mass index (BMI) [Ratio] 20.48 kg/c1JvwvdrmsAnalia Holliday Other [employer] Other 11-02-2023 11:30-0400Body wofzcm56.11 kgAnalia Holliday Other [employer] Other 11-02-2023 11:30-0400Diastolic blood gqgvnejc18 mm[Hg] Analia Holliday Other [employer] Other 11-02-2023 11:30-0400Respiratory rate18 /minAnalia Holliday Other [facility] Networkvpod.tv Other 11-02-2023 11:30-9999XgB2% (BldA) [Mass fraction]99 % Analia Holliday Other [employer] Other 11-02-2023 11:30-0400Systolic blood qycsotly368 mm[Hg] Analia Holliday Other [facility] Network[facility] Other 10-31-2023 11:10-0400Body elpese167.6 cmDavid Hykes Jr., DO Work Phone: [facility]10-31-2023 11:10-0400Body jtbwki45.3 kgDavid Hykes Jr., DO Work Phone: [facility]07-18-2023 10:10-0400Body .6 cmDavid Hykes Jr., DO Work Phone: [facility]07-18-2023 10:10-0400Body .26 kgDavid Hykes Jr., DO Work Phone: [facility]07-18-2023 10:10-0400Diastolic blood yhthnvvn54 mm[Hg]Dara Aleksadi Mak, DO Work Phone: [facility]07-18-2023 10:10-0400Heart rate67 /min Dara Aleksadi Mak, DO Work Phone: [facility]07-18-2023 10:10-1916IhN8% (BldA) [Mass fraction]100 %Dara Butler , DO Work Phone: [facility]07-18-2023 10:10-0400Systolic blood sglrsgos660 mm[Hg]Dara Butler , DO Work Phone: [facility]05-03-2023 10:00-0400Body nbyxbj336.56 cmRdariana Reyez Other [employer] Other 05-03-2023 10:00-0400Body mass index (BMI) [Ratio] 19.91 kg/m2Rygurmeet Scovanner Other [employer] Other 05-03-2023 10:00-0400Body ykuysu12.62 kgRygurmeet Scovanner Other [employer] Other 05-03-2023 10:00-0400Diastolic blood kswefpyf77 mm[Hg] Silvano Scovanner Other [employer] Other 05-03-2023 10:00-0400Systolic blood vaswugdx523 mm[Hg] Silvano Scovanner Other [employer] Other 10-06-2022 14:30-0400Body pqczig332.56 Varun Parikh Other [employer] Other 10-06-2022 14:30-0400Body mass index (BMI) [Ratio] 19.74 kg/b7KaoxlzxJaya Parikh Other noEconotherm [employer] Other 10-06-2022 14:30-0400Body hybuow50.16 kgJaya Parikh Other [place] [employer] Other 08-24-2022 15:29-0400Body thveqg013.6 Komal Diallo MD Work Phone: [phone]08-24-2022 15:29-0400Body mass index (BMI) [Ratio]19.6 kg/m2Irena Diallo MD Work Phone: [phone]08-24-2022 15:29-0400Body pmbjra78.8 kgIrena Diallo MD Work Phone: [phone]08-24-2022 15:29-0400 Diastolic blood mm[Hg]Irena Diallo MD Work Phone: [phone]08-24-2022 15:29-0400Heart rate74 /minIrena Diallo MD Work Phone: [phone]08-24-2022 15:29-0400 Respiratory rate18 /minIrena Diallo MD Work Phone: [phone]08-24-2022 15:29-0380GbZ3% (BldA) [Mass fraction]99 %Irena Diallo MD Work Phone: [phone]08-24-2022 15:29-0400Systolic blood vcdokcbw200 mm[Hg]Irena Diallo MD Work Phone: [phone]03-08-2022 12:00-0500Body aplafk363.56 cmCmaxim Parikh Other [facility] jo[facility] Other 03-08-2022 12:00-0500Body mass index (BMI) [Ratio] 19.74 kg/l3XousctuJaya Parikh Other [employer] Other 03-08-2022 12:00-0500Body watuww59.16 kgJaya Parikh Other [employer] Other 03-08-2022 12:00-0500Diastolic blood crjofyrs96 mm[Hg] Jaya Parikh Other [employer] Other 03-08-2022 12:00-0500Systolic blood ehywtoqg396 mm[Hg] Jaya Parikh Other [employer] Other 10-14-2021 10:30-0400Body cjdikx652.56 cmSjesus Negro Other [employer] Other 10-14-2021 10:30-0400Body mass index (BMI) [Ratio]20.6 kg/t4PighqakvnArlene Negro Other [employer] Other 10-14-2021 10:30-0400Body gefsbflgwnh70.1 [degF] Arlene Negro Other [employer] Other 10-14-2021 10:30-0400Body nodmel68.43 kgStkelly Negro Other [employer] Other 10-14-2021 10:30-0400Respiratory rate18 /minStepjosue Negro Other [employer] Other 10-14-2021 10:30-6549YfE6% (BldA) [Mass fraction]97 % Arlene Sruthi Other [facility] joiz Other Encounters Encounter DateEncounter TypeCare ProviderFacilityStart: 04-18-2025 End: 55-61-9942Rchkxhmda Result EncounterCorey Heike DO Work Phone: noms External Department UnsolicitedStart: 04-18-2025 End: 11-27-7254Vtkvyolcd Result EncounterCorey Heike DO Work Phone: noms External Department UnsolicitedStart: 03-24-2025 End: 43-89-9076Dxwfkj flowsheetCorey Heike DO Work Phone: noms [facility]BGYNStart: 03-24-2025 End: 81-54-5433Uhgvcl flowsheetCorey Heike DO Work Phone: noms [facility]BGYNStart: 03-24-2025 End: 66-23-8564Hxzywe outpatient visit 15 minutesCorey Heike DO Work Phone: noms Sg OBGYNComment on above:Encounter for infertility; PCOS (polycystic ovarian syndrome); Abnormal uterine bleeding (AUB)Start: 03-24-2025 End: 85-44-0743xxdlqrbdfsGABSE FAZIONot AvailableStart: 11-12-2024 End: 63-99-0814thxaskvgbrIayswmdwwAdena Health System Work Phone: Start: 11-12-2024 End: 45-76-4192Vmopixt encounter procedureFirwellmont health system [facility] Work Phone: Start: 27-98-9494Jli-patient / Non-visit[facility] Work Phone: Start: 20-67-2311Kwm-patient / Non-visitHigh[facility] Work Phone: Start: 10-24-2024 End: 01-44-1008umylqfmilvIbngvkxrkSalem [facility] Center Work Phone: Start: 10-24-2024 End: 48-79-9201Efxulwk encounter procedureHighlands-C[facility] Work Phone: Start: 09-05-2024 End: 52-25-8527Lclmhj-up encounterDabean Butler DO Work Phone: GastroenterologyStart: 09-03-2024 End: 52-25-5262zgbeycymamGOVDM L HYKES JRFacility:[facility] Start: 09-03-2024 End: 17-69-5877Oxgyyvaboo hospital visit by physicianDara Butler DO Work Phone: [facility] SheffieldComment on above:Generalized abdominal pain [R10.84]Start: 08-21-2024 End: 35-04-2093wlvxxjkedaPlheofyb Abraham MD Work Phone: Pain ManagementComment on above:Cancel procedureStart: 11-74-2258vkggdvsqzmJYLOFZWK Cleveland Clinictart: 07-24-2024 End: 58-64-5960Ahblweax ReferredAnalia Dennis APRN Work Phone: [facility] [employer] Work Phone: Start: 07-24-2024 End: 25-68-3932buuluuwdkyUtnwfuxk RohrbacherFacility:[facility] Systemtart: 07-24-2024 End: 49-64-6450Ebgllmb encounter procedureHighlands-C[facility] Hospital Physician GroupProtestant [facility]acon[facility] Work Phone: Start: 07-15-2024 End: 83-06-9672Vdxuzjfmz encounterNae Ibarra MD Work Phone: RheumatologyComment on above:ResultsStart: 07-15-2024 Non-patient / Non-visitHighlands[facility] Co Work Phone: Start: 07-15-2024 End: 21-86-4088qezwohlbopFBDDZVVE TSAIFacility:[facility] HospitalStart: 07-15-2024 End: 29-40-3516Vthwnhx encounter procedureNae Ibarra MD Work Phone: RheumatologyComment on above:Chronic fatigue (Primary Dx); Vitamin B12 deficiency; Vitamin D deficiency; Generalized abdominal pain; Urticaria; Photosensitivity; Chronic bilateral low back pain without sciatica; Cervicalgia; Upper back pain; Long-term use of high-risk medicationStart: 94-33-8424Erd-patient / Non-visit [facility] Work Phone: Start: 71-96-0267Dbc-patient / Non-visitHigh[facility] Work Phone: Start: 89-43-3249Yii-patient / Non-visitHigh[facility] Professional Co Work Phone: Start: 07-08-2024 End: 60-72-9395Sbftuaa encounter procedureHighlands-C[facility] Hospital Physician GroupProtestant Deaconess Hospital Work Phone: Start: 07-08-2024 End: 41-87-8815Gzpkqphyk Result EncounterCorey Heike DO Work Phone: noms External Department UnsolicitedStart: 07-08-2024 End: 12-06-3591Zgggquubd Result EncounterCorey Heike DO Work Phone: noms External Department UnsolicitedStart: 07-03-2024 End: 09-13-6394Naevwu flowsheetCorey Heike DO Work Phone: noms BCP OBStart: 07-03-2024 End: 46-83-1517Bncfxq flowsheetCorey Heike DO Work Phone: noms BCP OBStart: 07-03-2024 End: 63-23-3558Yqpnebcen encounterSquinn Thompson MD Work Phone: Pain ManagementComment on above:AppointmentStart: 07-03-2024 End: 84-92-1915Ukdchl outpatient visit 15 minutesCorey Heike DO Work Phone: noms BCP OBComment on above:Follow-up visit after miscarriageStart: 07-03-2024 End: 09-41-0771vukuqyyzfkXRVFR FAZIONot AvailableStart: 07-01-2024 End: 71-73-9268Ezmqqvz encounter procedureElif Rich MD Work Phone: noms SWS DERMComment on above:Neoplasm of unspecified behavior of bone, soft tissue, and skin (Primary Dx)Start: 07-01-2024 End: 35-80-3189Zrvtzl flowsCarline Rich MD Work Phone: noms SWS DERMStart: 07-01-2024 End: 63-89-4100Tibprg Becca Rich MD Work Phone: noms [facility] DERMStart: 07-01-2024 End: 23-16-4064cfjtpkyxkmGUXDU A PETITTINot AvailableStart: 11-73-1676Lkh- patient / Non-visitHigh[facility] GroupAst[facility] Professional [facility] Work Phone: Start: 72-44-4041Hyp-patient / Non-visitFirelands [facility] Work Phone: Start: 52-96-5017Fab-patient / Non-visitHighlands-C[facility] GroupAst[facility] Work Phone: Start: 06-23-2024 End: 01-19-2814Oiuapewmp encounterTho Huffman MD Work Phone: Internal MedicineComment on above:AppointmentStart: 05-14-2024 End: 81-70-7506Ekfbnpoju encounterTho Huffman MD Work Phone: Ambulatory SurgeryComment on above:Schedule Injection Start: 04-30-2024 End: 62-79-5260hgnvjcbgqzKTZNZOPE M KAPLEFacility:[facility] Start: 04-30-2024 End: 34-12-7717Nbotvje encounter procedurePaula Pretty MD Work Phone: pain ManagementComment on above:Right sided abdominal pain (Primary Dx); Neuralgia and neuritis; Celiac artery compression syndrome (HCC)Start: 04-24-2024 End: 61-34-9443Vlzqvjajn encounterIsabelle Menon MD Work Phone: GastroenterologyComment on above:Appointment (No need for OV with Dr. Menon)Start: 04-17-2024 End: 82-51-6728Ndhcozmact hospital visit by physicianKeshawn External FilmEF RAD EXTERNAL FILM VIRTUALComment on above:ArrivedStart: 04-16-2024 End: 35-60-3074Fdwtdjknnk hospital visit by Ranjit Ambriz MD MPH Work Phone: [facility] RahwayComment on above:Median arcuate ligament syndrome (CMS-HCC)Median arcuate ligament syndromeStart: 03-26-2024 End: 90-81-3501Ndjuugi encounter procedurePaula Pretty MD Work Phone: pain ManagementComment on above:APPOINTMENT CANCELLED (Primary Dx)Start: 03-26-2024 End: 49-04-9110kdshxqxxkuBRMWXPAQ M KAPLEFacility:[facility] Start: 14-38-6585Rkedkde encounter statusUniversity Hospitals Health Systemtart: 03-19-2024 End: 16-36-7642auwlpkwkxwUY Ana Bolton Work Phone: [facility] Work Phone: Start: 03-19-2024 End: 34-24-2389Kwygvao encounter procedureDO Ana Bolton Work Phone: [facility] GroupPro[facility] Work Phone: Start: 03-13-2024 End: 15-54-1363ivfkugihrsCZJWERCM M KAPLEFacility:[facility] Start: 03-12-2024 End: 56-14-3080ffqtbxroobMdbnu L Luke ., DO Work Phone: GastroenterologyStart: 03-12-2024 End: 20-56-1944Ktaytd-up encounterDadeondreadela Ilene Butler DO Work Phone: GastroenterologyComment on above:Follow UpStart: 03-05-2024 End: 73-96-0281Sgsamm outpatient new 60 minutesWhitney Ambriz MD MPH Work Phone: uh [facility] CenterComment on above: Epigastric pain (Primary Dx); Median arcuate ligament syndrome (CMS-HCC); Difficulty breathingStart: 02-26-2024 End: 64-65-8080Igwpthc encounter Joceline Braden MD Work Phone: GastroenterologyComment on above:Epigastric pain (Primary Dx)Start: 02-26-2024 End: 42-88-9291ybtcvxwvioJDIFK K STEVENSFacility:[facility] HospitalStart: 35-44-9833ylgovutekiPFECC L HYKESFacility:[facility] HospitalStart: 02-11-2024 End: 52-36-6314Mvpbbyuxjw hospital visit by physicianLavonne/Dillan 1 [facility] (I-Stat) Work Phone: RadiologyComment on above:Upper abdominal pain [R10.10]Start: 02-05-2024 End: 13-49-1822Aaclny outpatient gonzález 60 minutesDane Merida MD Work Phone: uh [facility] Physician PavilionComment on above:Median arcuate ligament syndrome (CMS-HCC) (Primary Dx)Start: 14-27-3949bjfjzythiotawanda BUTLERFacility:[facility] HospitalStart: 01-30-2024 End: 34-26-1076Qbtlgwdlcu hospital visit by physicianDaryl Imaging [facility] 2 Work Phone: RADCLEVELAND ARE[facility] – CLEVELAND HOSPComment on above:Upper abdominal pain [R10.10]Start: 01-11-1046Djvkupqvj encounterGeorge [facility] RADIO [facility]LE [facility] HOSPComment on above:Radiology NMStart: 48-12-7596uixdtexxbntawanda Menon MD Work Phone: GastroenterologyComment on above:EUSStart: 01-10-2024 End: 18-42-3857Hhzpep OnlyNot In System Ref ProvProMedica Physicians General SurgeryStart: 01-10-2024 End: 31-29-9649Mscznd follow up visit related to original Melinda Shepherd ACID POLYMERIZATION OPERATOR-CONCRETE SCULPTOR Work Phone: ProHartsel[facility] Physicians General SurgeryComment on above: Status post laparoscopic appendectomy (Primary Dx)Start: 01-01-2024 End: 56-54-7806mickrmwtefWdkwlgt E [facility] Work Phone: Start: 01-01-2024 End: 61-34-4130Dnqdplla ReferredDO Ana Bolton Work Phone: [facility] Path Spec [place] HospStart: 12-28-2023 End: 63-96-4672swgmufqmtvGEYUZ L HYADI JRFacility:[facility] Start: 12-28-2023 End: 81-77-6180Fgutxog encounter procedureDavid L Hykes DO Work Phone: GastroenterologyComment on above:Upper abdominal pain (Primary Dx); Dyspepsia and disorder of function of stomach; DyspepsiaStart: 12-27-2023 End: 23-58-7372jgcgvtccwgKXBEI L HYKES JRFacility:[facility] Start: 55-77-1988Uuv-patient / Non-visitDO Ana Bolton Work Phone: [facility] Hospitalzamzam Physician GroupAstria [facility] Professional Co Work Phone: Start: 70-97-5766bkkkabefmgTdrvw L Hykes DO Work Phone: GastroenterologyComment on above:PainStart: 12-13-2023 RefillDavid L Hykes DO Work Phone: FaMarshfield Medical Center Rice LakeComment on above: Refill RequestStart: 12-05-2023 End: 40-87-3365xcooogjcgqXYJKTGP LLOSASHAFacility:[facility] HospitalStart: 12-05-2023 End: 85-66-6259Zwbiiwd encounter procedureAriella Jonesyd ACID POLYMERIZATION OPERATOR.CONCRETE SCULPTOR Work Phone: General SurgeryComment on above:S/P gastrointestinal surgery, follow-up exam (Primary Dx); S/P laparoscopic cholecystectomyStart: 11-29-2023 End: 28-88-2638kojjgfurbgNohvmmyuzSalem Regional Medical Center Work Phone: Start: 11-29-2023 End: 85-14-9202Bbxwtzk encounter procedureHighlands-C[facility] Hospital Physician GroupMercy Hospital Work Phone: Start: 11-21-2023 End: 61-05-8444ukogddkljeGDJZBQBD M KAPLEFacility:[facility] HospitalStart: 89-05-8059Lqm-patient / Non-visitHighlands-C[facility] Work Phone: Start: 11-15-2023 End: 04-43-6923Fhmyyfpxm to [address] Other Phone: Pre AnesthesiaStart: 11-15-2023 End: 79-02-3231Voapcpr encounter procedurePacc [address] Other Phone: Pre AnesthesiaComment on above:Pre-op examination (Primary Dx); Palpitations; Organic anxiety syndromeStart: 11-15-2023 End: 78-26-5382Dxmbaoxwutojn examination donePacc [address] Other Phone: [facility] Work Phone: Start: 11-15-2023 End: 87-99-3617ecgfozsqonWLWOYFJKang Mansfieldcility:[facility] Centertart: 51-13-0565Wygztlbvq for other preprocedural examinationRockville General Hospital Start: 19-03-2966Ymelcgcec encounterBrianna M Armbrecht PA-C Work Phone: Pre AnesthesiaComment on above:Pre-Op ExamStart: 11-07-2023 End: 15-74-8822amwuhpyzrkAYUERSDX M KAPLEFacility:[facility] Start: 41-03-9204Awiukkrju encounterSedrick Rushing MD Work Phone: CardiologyComment on above:Patient Question (PVCs and Frequent ED visits. )Start: 38-80-8245Eytrwhvug encounterSedrick Rushing MD Work Phone: CardiologyComment on above:Palpitations; ED pt update Start: 81-55-3279Wivtuhusj encounterSeema Davis MD Work Phone: General SurgeryComment on above:Cardiac Clearance Start: 10-22-2023 End: 96-75-2318bmprfmxqukGPNUBC C SMITHFacility:[facility] HospitalStart: 10-22-2023 End: 65-27-1914Kdarknn encounter procedureSedrick Rushing MD Work Phone: CardiologyComment on above:Palpitations (Primary Dx); Other supraventricular tachycardia (HCC)Start: 10-19-2023 End: 02-20-3820heqchewgkvWOPGQO C SMITHFacility:[facility] HospitalStart: 82-69-8513Ikvfxejqa encounterIsabelle Menon MD Work Phone: GastroenterologyComment on above:Patient UpdateStart: 27-27-3764Jzwmxzrzg encounterIsabelle Menon MD Work Phone: FV Provider AdultStart: 58-73-8747zvxpvucuuiEVGJGUGT M KAPLEFacility:[facility] HospitalStart: 09-06-2023 End: 52-21-3758Djvztdatwj hospital visit by physicianIsabelle Menon MD Work Phone: FaBen[facility] - ENDOComment on above: Chronic recurrent pancreatitis (HCC) [K86.1]Start: 66-82-2470Meswfzdwj encounter [employer] Procedure 15RadiologyComment on above:ScansStart: 06-11-2023 ambulatoryIsabelle Menon MD Work Phone: GastroenterologyComment on above:EUSStart: 06-06-2023 End: 31-08-4103Wpupicw encounter procedureIsabelle Menon MD Work Phone: GastroenterologyComment on above:RUQ pain (Primary Dx); History of pancreatitis; Nausea; Diarrhea, unspecified type; History of Clostridium difficile infectionStart: 06-01-2023 End: 24-47-2342dppooqzzwaLtwdzors Kaple Other [facility] [employer] Other Start: 91-38-5695Vehsbqcuh encounterAnalia Ye Primary CareStart: 05-30-2023 End: 38-07-7026dlihonjakdNGX Jennifer Kaple Work Phone: [facility] Work Phone: Start: 05-30-2023 End: 25-17-7366Xqbuttd encounter procedureDNClaudette Holliday Work Phone: [facility] Plainviewtart: 05-24-2023 End: 75-34-8123sshtatyxzdLnmjbycl Kaple Other [facility] [employer] Other Start: 56-66-7638Pfsrgckar for general adult medical examination without abnormal findingsAnalia PedrazaG [facility] Start: 64-07-1020Btwjslj preventive medicine new pt age 18-39yrsAnalia ELIAS [facility] HospitalyStart: 05-22-2023 End: 15-03-2278Peqiulr encounter procedureDabean Butler DO Work Phone: GastgroenterologyComment on above:Chronic pancreatitis, unspecified pancreatitis type (HCC) (Primary Dx); Generalized abdominal pain; Irritable bowel syndrome with diarrhea; History of Clostridioides difficile colitisStart: 05-16-2023 End: 81-23-5122pxxgkbiqxaVkevsoit Provider Other [employer] Other Start: 59-90-2160Mbtoaapoy encounterOrdering Provider [facility] Medicine [place]kyStart: 77-90-1977Lvkzpmain encounterDavid L Hykes DO Work Phone: GastroenterologyComment on above:ResultsStart: 45-97-4322Qkqqilapj encounterDavid L Hykes DO Work Phone: GastroenterologyComment on above:ResultsStart: 41-63-9068aavrryuuvqORKSK L HYKESFacility:[facility] MountainStar Healthcaretart: 04-13-2023 End: 78-27-0580Fijvsnelur hospital visit by physicianEj Cerrato (I-Stat/1.5t) Work Phone: RadiologyComment on above:Chronic recurrent pancreatitis (HCC) [K86.1]Start: 87-96-2339Mafrldvbv encounterMarie Moise (Chencho) GeorgeRadiologyComment on above:APPT REMINDER (APPT REMINDER CALL, LEFT MESSAGE REGARDING DIRECTIONS TO OFFICE AND # IN NEED TO CANCEL)Start: 03-27-2023 End: 70-52-2418fjxhesihgmRdra Scovanner Other [employer] Other Start: 60-24-7781Dbwgmnloy encounterRyan ScovannerFPG GastroenterologyStart: 03-23-2023 End: 06-35-4875acjqevfnjpFcls [employer]ovanner Other [employer] Other Start: 89-13-3257Kxmbqdoig encounterRyan ScovannerFPG GastroenterologyComment on above:ResultsStart: 03-22-2023 End: 52-77-3406gqayahfvpeAtnt Scovanner Other [employer] Other Start: 46-48-9590Xvgqhldzg encounterNae Ibarra MD Work Phone: RheumatologyComment on above:ResultsStart: 03-21-2023 Telephone encounterDavid L Hykes DO Work Phone: GastroenterologyComment on above:ResultsStart: 03-20-2023 End: 98-58-5555asmgclznboDyut Scovanner Other [employer] Other Start: 94-65-0895Vhhnwpvel encounterRyan ScrossynerFPG GastroenterologyStart: 57-22-7495xgziyppsymHmklh L Hykes DO Work Phone: GastgroenterologyComment on above:PancreasStart: 60-52-1461jouhxvknrsQSHNJ L HYKESFacility:[facility] HospitalStart: 02-06-2023 End: 61-56-2750Clstguy encounter procedureDavid L Hykes DO Work Phone: GastgroenterologyComment on above:Chronic pancreatitis, unspecified pancreatitis type (HCC) (Primary Dx); Generalized abdominal pain; Intestinal malabsorption, unspecified typeStart: 67-62-8797uqowvvecdkLwbpqjguyip AbdelazizFacility:[facility] Systemtart: 65-44-5493rwkckdpoiq Nae Ibarra MD Work Phone: RheumatologyComment on above:updateStart: 12-01-2022 End: 92-76-2606mggbfgojjcUO DOCTOR MISCFacility:S5Xlmao: 11-22-2022 End: 04-76-6615agbkibacnwTewl Scovanner Other [employer] Other Start: 26-46-4227Zjkotl outpatient new 30 minutesRyan ScovannerFPG GastroenterologyStart: 11-08-2022 End: 87-51-8341tuxbjgnoniPkwbunb Ditty Other [facility] [employer] Other Start: 08-28-1001Epsuwshqg encounterCameron DittyFPG GastroenterologyStart: 11-04-2022 End: 97-73-6625jlpkdbldgfBBAGQPQ DITTYFacility:E4Mmmsn: 11-03-2022 End: 79-53-7456ybqrdldbbuZK DOCTOR MISCFacility:V3Indyc: 10-31-2022 End: 18-25-7345aohtawrfbwZG DOCTOR MISCFacility:I5Yamue: 10-23-2022 End: 11-05-2362smmyhfvjsmLE DOCTOR MISCFacility:F7Nydib: 10-20-2022 End: 33-35-3365syxmmbjqsuFX DOCTOR MISCFacility:R8Urnbz: 10-19-2022 End: 39-61-9014fllqlqezsvAL EDWARD HEMEYER .Facility:S1Dzwei: 10-18-2022 End: 16-82-9203shwbiwprucLE EDWARD HEMEYER .Facility:S0Xtlir: 10-08-2022 End: 00-85-2934zkuyojycfxSM EDWARD HEMEYER .Facility:H7Zruom: 10-05-2022 End: 87-57-3571zhboiyewzjRH EDWARD HEMEYER .Facility:J5Cgzwp: 10-02-2022 End: 52-72-3449eqnkhhmbhjOK EDWARD HEMEYER .Facility:M7Rmqgd: 09-28-2022 End: 20-22-0891oburjopdrxXA DOCTOR MISCFacility:Q6Chbop: 09-26-2022 End: 70-67-7111ptxmzvdefaGS EDWARD HEMEYER .Facility:F5Wlgdg: 09-22-2022 End: 33-84-5811jtqvsbhcsuDA EDWARD HEMEYER .Facility:S4Chllg: 09-12-2022 End: 46-01-1912wcwvcsfmhcVT DOCTOR MISCFacility:Q4Fhfym: 08-30-2022 End: 01-50-9561qedfpvsnpdLK DOCTOR MISCFacility:O7Zcnyg: 08-24-2022 End: 48-30-3274sdpadtafvsFO EDWARD HEMEYER .Facility:M1Ttrht: 08-22-2022 End: 93-86-5216naxfmeyfzeCG EDWARD HEMEYER .Facility:B9Fnifg: 08-22-2022 End: 45-95-3183hciwulgamqCE EDWARD HEMEYER .Facility:W4Iyfvx: 08-21-2022 End: 41-43-2454ungdaljfvfBU EDWARD HEMEYER .Facility:I6Speku: 08-14-2022 End: 32-29-5961xhzsfdqnwlYC JEREMIAH HEIKE .Facility:J8Tcmjh: 07-28-2022 End: 51-87-3060uwsjwqfskbAvjtibg [employer] Other [employer] Other Start: 88-48-8833Sknzrcppw encounterCameron DittyFPG GastroenterologyStart: 07-27-2022 End: 89-76-5628gbskulxofmSJ EDWARD HEMEYER .Facility:M2Dfodw: 07-13-2022 End: 41-49-8714ybfukrfmjuZT EDWARD HEMEYER .Facility:S0Elcll: 05-11-2022 End: 84-16-1183kgmcyzbnjnNW DOCTOR MISCFacility:X4Iigse: 05-04-2022 End: 71-99-2201wtgzqwteaoVO DOCTOR MISCFacility:U9Okomr: 05-01-2022 End: 28-65-4449kvhpvjanxqMX DOCTOR MISCFacility:D0Ucevf: 04-27-2022 End: 43-90-0559dpdgafurktErgpkwl Ditty Other [employer] Other Start: 74-90-1332Zllokio encounter procedureCameron DittyFPG GastroenterologyStart: 04-17-2022 End: 13-84-1122zifcqklgjaQA EDWARD HEMEYER .Facility:O4Mjczj: 03-17-2022 End: 48-11-3014jywhcegokrRJ DOCTOR MISCFacility:Z9Vvuhs: 14-18-9734wourrowjhqZCV PETROVAFacility:[facility] CENTERtart: 03-15-2022 End: 81[place] [id number] My Diallo MD Work Phone: General and Gastrointestinal [facility] on above:Diarrhea, unspecified type (Primary Dx)Start: 02-25-2022 End: 12-21-5064mjtmbbxyzjZMVISZD HOYFacility:B0Nbqdr: 02-01-2022 End: 14-07-3301sunsupoxhhVW DOCTOR MISCFacility:U9Vqjdc: 01-19-2022 End: 18-04-8475zdsecnmbynKwfzujx Ditty Other noContent Circles Other Start: 85-39-9926Megszmxlv encounterCameron DittyFPG GastroenterologyStart: 01-14-2022 End: 69-80-6226yttsdjqdilJPVPVKV HOYFacility:B2Xduxy: 72-98-4677tuyscyvavl REFERRED SELFFacility:[facility] UNITtart: 10-27-2021 End: 26-92-5214edfospkjkvXyogsdn Ditty Other noContent Circles Other Start: 43-99-2101Xrkvkzmam encounterCameron DittyFPG GastroenterologyStart: 10-17-2021 End: 46-99-9260zxalhcvxaeDhmgswg Ditty Other noContent Circles Other Start: 69-05-5528Mecbjcokb encounterCameron DittyFPG GastroenterologyStart: 43-68-4079oicuxisuthVCF PETROVAFacility:[facility]ENTERtart: 10-06-2021 End: 10-47-8999igevfwyamlFzwveor Ditty Other [employer] Other Start: 16-38-4667Ijjimejnk encounterCameron DittyFPG GastroenterologyStart: 09-30-2021 End: 05-05-5604rxubvbxksvUkcppcx Ditty Other nort Beta [employer] Other Start: 95-17-8411Vfjyjsbrp encounterCamerojovana ParikhFPG GastroenterologyStart: 09-27-2021 End: 55-96-8570cgnhgcdgdwJshjayw Bretty Other nort [employer] Other Start: 19-56-4885MUHD visit new patientCameron Kati FPG GastroenterologyStart: 63-62-2068Zympqc outpatient visit 15 minutesStephanie SruthiFPG Urgent Care ClydeStart: 12-02-2020 End: 98-27-7323Wljhnqpdke hospital visit by physicianCt [facility] Radiology Ct ScanComment on above:Family history of ischemic heart disease and other diseases of the circulatory system [Z82.49] Procedures DateProcedureProcedure DetailPerforming ClinicianStart: 75-89-3871GHR FOLLICLE STIMULATING HORMONECorey Heike DO Work Phone: Start: 36-43-7177RQW LUTEINIZING HORMONECorey Heike DO Work Phone: Start: 46-90-1568FQW THYROXINE (T4) FREECorey Heike DO Work Phone: Start: 04-96-3993WLE HEMOGLOBIN R8EIazlm Heike DO Work Phone: Start: 43-47-2956Rbczwbitbvl flx dx w/collj spec when pfrmdDavid L Hykes DO Work Phone: Start: 83-25-3140TMT PREG QUANT HCGCorey Heike DO Work Phone: Start: 72-33-8316AEGD / NAIL BIOPSYEmlisset Rich MD Work Phone: Start: 04-17-2024 End: 65-59-7520Ebobm Interpretation of outside studyFormerly [facility] Rad[facility] Contrast ProviderStart: 18-12-3955Dmqyywsosuulkseugtspotlfih transoral diagnosticWhitney Ambriz MD MPH Work Phone: Start: 84-29-5007Dowei iv surg pathology gross&microscopic examWhitney Ambriz MD MPH Work Phone: Start: 78-59-3831Fqhdu test visual color cmprsn Lauri Batista MD Work Phone: Start: 61-35-8308NJYMW OXIMETRY, Rashid Batista MD Work Phone: [phone]: 71-83-7120GYZEV OXIMETRY, Irwin Batista MD Work Phone: [phone]: 55-34-1385TFQDO MARK-TATIANA CONTAINER PERFORMABLEDadeondreadela Ilene Butler DO Work Phone: Start: 13-24-0206IVQOW ECOFIX CONTAINER PERFORMABLE Dara Butler DO Work Phone: [phone]: 52-70-9630Bda agent det nucleic acid clostridium amp probeDavid Ilene Butler DO Work Phone: [phone]: 02-34-1182CDQ EXTRA TUBESDavid Ilene Butler DO Work Phone: [phone]: 22-56-1132GH UPPER GI SINGLE CONTRASTDadeondred Ilene Butler DO Work Phone: Start: 12-47-2179Adkkone emptying imaging studyDadeondreadela Ilene Butler DO Work Phone: [phone]: 90-70-8089Yyxxr i surg pathology gross examination onlyNot In System Ref ProvStart: 93-80-2914Svuqrxxmsdr rig transoral hypopharynx crv Nicole Menon MD Work Phone: start: 77-32-4759Pgb abdomen w/o & w/contrast material Dara Ilene Finkadi DO Work Phone: Start: 30-81-5115Ad angiography head w/contrast/noncontrastBarbronit Naqvi DO Work Phone: Start: 06-94-7163Wf angiography neck w/contrast/noncontrastBarbara Donya DO Work Phone: History of cholecystectomyS/P laparoscopic cholecystectomyAudreymissy Mccoy CONCRETE SCULPTOR Work Phone: Plan of Treatment DateCare ActivityDetailAuthorStart: 49-95-0724Iwvxqt Vaccines (1 of 2)Zoster Vaccines (1 of 2)[facility]: 07-21-2025 End: 19-37-1989Qpsutac encounter olzopowjn88/30/2025 7:00 AM EST Office Visit Rheumatology [address] [facility] [place] [address] Nae Ibarra MD [address] [facility] [place] [address] 1 year follow upRheumatologyComment on above:1 year follow up Start: 03-24-2025 End: 59-47-4106Gomrztz encounter fdrqjbvzy49/02/2025 1:50 PM EDT Office Visit [facility] [place] [facility] [address] [place] [address] Jeremiah Burroughs DO [address] [place] Bettencourt, [place] [phone] ArrivedNOMS Sg OBGYNComment on above:ArrivedStart: 76-28-6245FJSSF-19 Vaccine ( season)COVID-19 Vaccine ( season)[facility]: 03-23-2025 Influenza vaccinationInfluenza Vaccine (#1)[facility]OM[facility] HealthcareStart: 02-06-2025 End: 87-79-6292Ohxzcsg encounter qaotrgrvv35/18/2025 9:00 AM EDT Office Visit Gastroenterology [address] [place] [address] Dara Butler Jr., DO [address] [place] [address] Stomach pain/diarrheaGastroenterology Comment on above:Stomach pain/diarrheaStart: 52-33-2590Zafdli Adult Physical Yearly Adult PhysicalWayne HospitalStart: 00-71-9208Dzfxq BMI ScreeningAdult BMI ScreeningSelect [facility] SystemStart: 20-17-2590Yuzoiig ScreeningTobacco ScreeningProCleveland Clinic [facility] SystemStart: 01-09-2025 End: 95-05-1501Iiabwsv encounter sebjwowma80/20/2025 9:00 AM EDT Office Visit Gastroenterology [address] [address] Dara Butler Jr., DO [address] [phone] Stomach pain/diarrheaGastroenterology Comment on above:Stomach pain/diarrheaStart: 09-17-2024 End: 93-90-7413Opwukdm encounter qfjanpjnv21/26/2025 12:30 PM EST Appointment Ambulatory Surgery [address] [place] [address] [place] [address] [place] [address] Ambulatory SurgeryStart: 08-27-2024 End: 27-39-4069Tnsebxotv to same day surgery slrawt5208/27/2024 8:55 AM EST - 08/27/2024 9:32 AM EST Surgery Procedures [address] [place] [address] Tho Huffman MD [address] [facility] [address] BLOCK CELIAC PLEXUS WITH C-ARMProcedures Comment on above:BLOCK CELIAC PLEXUS WITH C-ARMStart: 08-27-2024 End: 75-65-1059Zvkb anes celiac plexus w/wo radiologic monitrngBLOCK CELIAC PLEXUS WITH C-ARM Right sided abdominal pain Celiac artery compression syndrome (HCC) Neuralgia and neuritis 08/27/2024 8:55 AM [facility]: 73-92-5174Ybtmputsxy hospital visit by mlibovmkg94/05/2025 8:55 AM [facility] Hospital Encounter Procedures [address] [facility] [address] Tho Huffman MD [address] [facility] [address] Right sided abdominal pain [R10.9], Celiac artery compression syndrome (HCC) [I77.4], Neuralgiaand neuritis [M79.2]ProceduresComment on above:Right sided abdominal pain [R10.9], Celiac artery compression syndrome (HCC) [I77.4], Neuralgia andneuritis [M79.2]Start: 08-18-2024 End: 42-62-7921Frxmmuv encounter dbjabnajl19/27/2025 1:40 PM EST Office Visit Rheumatology [address] [facility] [address] [facility] [place] [address] Nae Ibarra MD [address] [facility] [place] [address] for fatigue fu OV.RheumatologyComment on above:for fatigue fu OV.Start: 22-24-8532Btgjhttp identified in Urine by CultureUrine Culture [facility] Systemtart: 49-31-5784Uqbsz cultureUniversity Hospitals Health Systemtart: 07-15-2024 End: 141698-igzzhdjakpbbkh D3 [Mass/volume] in Serum or PlasmaGerman Hospital Work Phone: Comment on above:Expected: 07/15/2024 (Approximate), Expires: 10/14/2024Start: 07-04-2024 End: 87-59-0473Mkqipwscj to same day surgery bamjna9607/04/2024 7:30 AM EST - 07/04/2024 8:08 AM [facility] Surgery Ambulatory Surgery [address] [facility] [place] [address] Tho Huffman MD [address] [facility] [address] BLOCK CELIAC PLEXUS WITH C-ARMAmbulatory SurgeryComment on above:BLOCK CELIAC PLEXUS WITH C-ARM Start: 07-04-2024 End: 12-00-3159Pogu anes celiac plexus w/wo radiologic monitrngBLOCK CELIAC PLEXUS WITH C-ARM Right sided abdominal pain Celiac artery compression syndrome (HCC) Neuralgia and neuritis 07/04/2024 7:30 AM [facility]AINStart: 02-34-5026Vqpuswzwiv hospital visit by zxynugmbi82/13/2024 7:30 AM [facility] Hospital Encounter Ambulatory Surgery [address] [facility] [place] [address] Tho Huffman MD [address] [facility], [place] [phone] Right sided abdominal pain [R10.9], Celiac artery compression syndrome (HCC)[I77.4], Neuralgia and neuritis [M79.2] Ambulatory SurgeryComment on above:Right sided abdominal pain [R10.9], Celiac artery compression syndrome (HCC) [I77.4], Neuralgia andneuritis [M79.2]Start: 07-03-2024 End: 87-09-6375Fyksvwn encounter procedureNOMS BCP OBComment on above:Arrived Start: 07-01-2024 End: 54-32-1839Xkerdhv encounter rhgrenpcr33/10/2024 2:05 PM EST Office Visit [facility] [address] [place] [address] Elif Rich MD [address] [place] [address] ArrivedNOMS SWS DERMComment on above:ArrivedStart: 06-30-2024 End: 00-46-2040Ubtuyrn encounter llcixipvp23/09/2024 10:30 AM EST Office Visit Pain Management [address] [place] [address] Paula Pretty MD [address] [place] [address] follow upPain ManagementComment on above: follow upStart: 06-13-2024 End: 92-28-5917Vkuljfr encounter nsmubyivh94/22/2024 1:20 PM EST Office Visit Gastroenterology [address] [place] [address] Dara Butler Jr., DO [address] [place] [address] JN -SOONER APPT FOR FOLLOW UP GastroenterologyComment on above:JN -SOONER APPT FOR FOLLOW UPStart: 05-07-2024 End: 86-81-7723Lumeqvz encounter bsneupnje15/16/2024 11:45 AM EDT Office Visit Gastroenterology [address] [place] [address] [place] [address] [place] [address] F/U OVGastroenterologyComment on above:F/U OVStart: 04-30-2024 End: 38-73-5287Bqyistx encounter procedurePain ManagementComment on above:Dr [place] claudio referralStart: 04-16-2024 End: 69-35-0586Zkhlsme encounter zjpkiwpgv91/25/2024 9:00 AM EDT Appointment [facility] [address] [place] [address] Whitney Ambriz MD MPH [address] Bariatric Lab [place], [place] [phone] [facility]: 03-26-2024 End: 11-41-7611Nfgqdwq encounter fabafwpiu35/04/2024 11:00 AM EDT Office Visit Pain Management [address] [phone] Paula Pretty MD [address] [place] [address] [place] [address] Dr [place] claudio referralPain Management Comment on above:Dr [place] claudio referralStart: 88-78-5792Sekov-19 Vaccine ( season)Covid-19 Vaccine ()[facility] ClinicStart: 53-67-0280Npihm-19 Vaccine ()Covid-19 Vaccine ()[facility] ClinicStart: 32-01-5480Prqsalnyu vaccinationSt. [facility] Start: 03-18-2024 End: 50-33-7996Zxmgoyr encounter hommwobht50/27/2024 1:00 PM EDT Office Visit Gastroenterology [address] [address] Bola Braden MD [address] [place] [address] Pancreatitis second opinionGastroenterologyComment on above: Pancreatitis second opinionStart: 03-14-2024 End: 25-03-7757Vxgrvnl encounter /23/2024 10:00 AM EDT Office Visit Gastroenterology [address] [place], [place] [phone] Dara Butler Jr., DO [address] [place] [address] follow upoGastroenterologyComment on above:follow upoStart: 02-11-2024 End: 11-56-5642Accphon encounter ddfbnryco36/22/2024 9:30 AM EDT Appointment Radiology [address] [place] [address] : XR UPPER GI SINGLE CONTRAST RadiologyComment on above:: XR UPPER GI SINGLE CONTRASTStart: 02-01-2024 End: 94-40-6916Gamrpjg encounter bznvbzkee02/12/2024 3:00 PM EDT Office Visit Gastroenterology [address] [place] [address] Dara Butler Jr., DO [address] [place] [address] JN -SOONER APPT FOR FOLLOW UP GastroenterologyComment on above:JN -SOONER APPT FOR FOLLOW UPStart: 01-30-2024 End: 66-54-2620Umnyvhd encounter pgzgdzbyz28/10/2024 8:30 AM EDT Appointment [facility] [address] [place] [address] Gastric Emptying Study Weight 115 / Patient not Diabetic / Order in EPIC // DX: Upper abdominal pain [R10.10][facility] HOSPComment on above:Gastric Emptying Study Weight 115 / Patient not Diabetic / Order in EPIC // DX: Upper abdominal pain [R10.10]Start: 01-09-2024 End: 03-98-9038Divhpur encounter kroczwgle67/19/2024 8:30 AM EDT Appointment [facility] [address] [place] [address] Weight 115 / Patient not Diabetic / Order in EPIC // DX: Upper abdominal pain [R10.10][facility] HOSPComment on above:Weight 115 / Patient not Diabetic / Order in EPIC // DX: Upper abdominal pain [R10.10]Start: 12-28-2023 End: 77-94-1117Xngagxu encounter vsjcotwdn30/07/2024 3:00 PM EDT Office Visit Gastroenterology [address] [place] [address] Dara Butler Jr., [address] [place] [address] abdominal pain- add per GastroenterologyComment on above:abdominal pain- add per JNStart: 12-27-2023 End: 82-62-5789kohqkxxbrs52/06/2024 10:00 AM EDT Results Only [facility] [address] [place] [address] [place] [address] OxktbAspirus [facility] LaboratoryStart: 12-26-2023 End: 32-82-1597Kqkihzk [Enzymatic activity/volume] in Serum or PlasmaAMYLASE Lab Routine Generalized abdominal pain History of acute pancreatitis Expected: 12/26/2023, Expires: 03/26/2024leveland ClinicComment on above:Expected: 12/26/2023, Expires: 03/26/2024Start: 12-26-2023 End: 03-26-2024 reactive protein [Mass/volume] in Serum or PlasmaC-REACTIVE PROTEIN Lab Routine Generalized abdominal pain History of acute pancreatitis Expected: 12/26/2023, Expires: 03/26/2024leveland ClinicComment on above: Expected: 12/26/2023, Expires: 03/26/2024Start: 12-26-2023 End: 60-97-6003GZM W Auto Differential panel - BloodCOMPLETE BLOOD COUNT AND DIFFERENTIAL Lab Routine Generalized abdominal pain History of acute pancre atitis Expected: 12/26/2023, Expires: 03/26/2024leveland ClinicComment on above:Expected: 12/26/2023, Expires: 03/26/2024Start: 12-26-2023 End: 59-42-8007Jijtbxkfmjydi metabolic 2000 panel - Serum or PlasmaCOMPREHENSIVE METABOLIC PANEL Lab Routine Generalized abdominal pain History of acute pancreatitis Expected: 12/26/2023, Expires: 03/26/2024[facility] Work Phone: Comment on above:Expected: 12/26/2023, Expires: 03/26/2024Start: 12-26-2023 End: 22-36-8736Ofmaqafkspt sedimentation rateSEDIMENTATION RATE, WESTERGREN Lab Routine Generalized abdominal pain History of acute pancreatitisExpected: 12/26/2023, Expires: 03/26/2024leveland ClinicComment on above:Expected: 12/26/2023, Expires: 03/26/2024Start: 12-26-2023 End: 76-94-4337Wbvtkj [Enzymatic activity/volume] in Serum or PlasmaLIPASE Lab Routine Generalized abdominal pain History of acute pancreatitis Expected: 12/26/2023, Expires: 03/26/2024leveland ClinicComment on above:Expected: 12/26/2023, Expires: 03/26/2024Start: 12-10-2023 End: 35-32-5805Lmltsxu encounter zkvowqusx40/20/2024 12:20 PM EDT Office Visit Rheumatology [address] [facility] [place] [address] Nae Ibarra MD [address] [facility] [address] for fatigue fu OV.RheumatologyComment on above:for fatigue fu OV.Start: 11-21-2023 End: 41-34-7265Qwlhsothp to same day surgery crqefr5811/21/2023 3:15 PM EDT - 11/21/2023 5:45 PM EDT Surgery [facility] Operating Room [address] [place], [place] [phone] [place] [address] [place] [phone] LAPAROSCOPIC CHOLECYSTECTOMYFaBenjamin [facility] Operating RoomComment on above:LAPAROSCOPIC CHOLECYSTECTOMYStart: 11-21-2023 End: 38-77-1283Asdxkhrjlls surg cholecystectomyLAPAROSCOPIC CHOLECYSTECTOMY Cholecystitis 11/21/2023 3:15 PM EDTFV ORStart: 60-35-3165Yczdtpfkat hospital visit by qpecfddug46/01/2024 3:15 PM EDT Hospital Encounter [facility] Operating Room [address] [place] [address] [place] [address] [place] [address] Cholecystitis [K81.9][facility] Operating RoomComment on above: Cholecystitis [K81.9]Start: 84-06-4556Mwlodgxost Health ScreeningBehavioral Health ScreeningCleUC Healthtart: 29-74-4126Txxhqksgva AssessmentDepression AssessmentCleUC Healthtart: 35-03-9223Joztk-19 Vaccine ( season)Covid-19 Vaccine ( season)[facility]: 03-23-2023 Influenza vaccinationSumma Health Barberton Campustart: 02-06-2023 End: 55-63-3807Agpewwa [Enzymatic activity/volume] in Serum or PlasmaAMYLASE BLD Lab Routine Generalized abdominal pain Chronic pancreatitis, unspecified pancreatitis type (HCC) Intestinal malabsorption, unspecified type Expected: 02/06/2023, Expires: 04/08/2023[facility] Work Phone: Comment on above:Expected: 02/06/2023, Expires: 04/08/2023Start: 02-06-2023 End: 13-43-6903OXUYXI SCREEN WITH REFLEXCELIAC SCREEN WITH REFLEX Lab Routine Generalized abdominal pain Chronic pancreatitis, unspecified pancreatitis type (HCC) Intestinal malabsorption, unspecified type Expected: 02/06/2023, Expires: 04/08/2023[facility] Work Phone: Comment on above:Expected: 02/06/2023, Expires: 04/08/2023Start: 02-06-2023 End: 00-69-8556Zoazgajawsldi metabolic 2000 panel - Serum or PlasmaCOMP METABOLIC PANEL Lab Routine Generalized abdominal pain Chronic pancreatitis, unspecified pancreatitis type (HCC) Intestinal malabsorption, unspecified type Expected: 02/06/2023, Expires: 04/08/2023[facility] Work Phone: Comment on above:Expected: 02/06/2023, Expires: 04/08/2023Start: 02-06-2023 End: 11-51-5739TFH SUBCLASS 1,2,3,4IGG SUBCLASS 1,2,3,4 Lab Routine Generalized abdominal pain Chronic pancreatitis, unspecified pancreatitis type (HCC) Intestinal malabsorption, unspecified type Expected: 02/06/2023, Expires: 04/08/2023[facility] Work Phone: Comment on above:Expected: 02/06/2023, Expires: 04/08/2023Start: 02-06-2023 End: 78-96-1084Jjheei [Enzymatic activity/volume] in Serum or PlasmaLIPASE BLD Lab Routine Generalized abdominal pain Chronic pancreatitis, unspecified pancreatitis type (HCC) Intestinal malabsorption, unspecified type Expected: 02/06/2023, Expires: 04/08/2023[facility] Work Phone: Comcvpn on above:Expected: 02/06/2023, Expires: 04/08/2023Start: 02-06-2023 End: 40-11-4889Ozuja 1996 panel - Serum or PlasmaLIPID PANEL BASIC Lab Routine Generalized abdominal pain Chronic pancreatitis, unspecified pancreatitis type (HCC) Intestinal malabsorption, unspecified type Expected: 02/06/2023, Expires: 04/08/2023[facility] Work Phone: Comment on above:Expected: 02/06/2023, Expires: 04/08/2023Start: 02-06-2023 End: 38-89-0397Korybfw Ab [Presence] in Serum by ImmunoassayANA BLOOD Lab Routine Generalized abdominal pain Chronic pancreatitis, unspecified pancreatitis type (HCC) Intestinal malabsorption, unspecified type Expected: 02/06/2023, Expires: 04/08/2023[facility] Work Phone: Comment on above:Expected: 02/06/2023, Expires: 04/08/2023Start: 97-78-4875UCLIXYGLFA ASSESSMENTDEPRESSION ASSESSMENTSumma Health Barberton Campustart: 07-20-2022 End: 96-46-3786Yzslabe encounter hezmpbklt50/29/2022 Office Visit Gastroenterology Irena Diallo MD [address] [place] [address] General and Gastrointestinal Surgery Outpatient Care [facility]: 04-24-7677Cnxfgivdr vaccinationINFLUENZA VACCINE (#1)[facility]: 03-15-2022 End: 03-15-2023 DIFFICILE BY PCR (CLOSTRIDIUM DIFFICILE TOXIN)C DIFFICILE BY PCR (CLOSTRIDIUM DIFFICILE TOXIN) Microbiology Routine Diarrhea, unspecified type Expected: 03/15/2022, Expires: 03/15/2023OSMiami Valley HospitalComment on above:Expected: 03/15/2022, Expires: 03/15/2023Start: 03-15-2022 End: 27-44-4402FHYQRTXHG ENTERIC PANEL, STOOLMOLECULAR ENTERIC PANEL, STOOL Fluids Routine Diarrhea, unspecified type Expected: 03/15/2022, Expires: 03/15/2023[facility] CenterComment on above:Expected: 03/15/2022, Expires: 03/15/2023Start: 94-05-1028FXQYX-19 VACCINE (3 - Booster for Pfizer series)COVID-19 VACCINE (3 - Booster for Pfizer series)[facility] Start: 22-79-6610VLONV-19 VACCINE (3 - Booster for Pfizer series)COVID-19 VACCINE (3 - Booster for Pfizer series)[facility]ustart: 77-37-9101NTPUE-19 VACCINE (3 - Pfizer series)COVID-19 VACCINE (3 - Pfizer series)[facility] Start: 50-32-3827HHlB,Tdap and Td Vaccines (7 - Td or Tdap)DTaP,Tdap and Td Vaccines (7 - Td or Tdap)[facility] SystemStart: 99-81-2672FOhI/Tdap/Td Vaccines (7 - Td or Tdap)DTaP/Tdap/Td Vaccines (7 - Td or Tdap)[facility] HospitalStart: 59-30-3245Ffxvy microalbumin profileDTaP,Tdap,Td Vaccine (7 - Td or Tdap)[facility]art: 79-72-4739SUI TESTINGPAP TESTING [facility] Campustart: 88-00-4905Wmbnltwjl for malignant neoplasm of cervixFulton County Health Centertart: 83-47-8285Ndroy diphtheria, tetanus and acellular pertussis (DTaP) vaccinationTDAP (ADULT)[facility]ertart: 37-25-4771Kbrez microalbumin profileSumma Health Barberton Campustart: 44-56-0658Ktunhssavy ScreeningDepression ScreeningSumma Health Barberton Campustart: 09-29-7038Ufxovbpyn C screeningHepatitis C ScreeningWayne HospitalStsabin: 2016 HIV SCREENINGHIV SCREENINGSumma Health Barberton Campustart: 03-09-8056KUX screeningHIV ScreeningSumma Health Barberton Campustart: 95-95-9694Ioqckex vaccinationTETANUSOSCoshocton Regional Medical Centertart: 47-21-7992Ynxhstnasdywl B Vaccine: Consider Based On Risk (1 of 2 - Patient Seeks Protection)Meningococcal B Vaccine: Consider Based On Risk (1 of 2 - Patient Seeks Protection)[facility]: 2014 MENINGOCOCCAL B: Consider based on risk (1 of 2 - Patient Seeks Protection) MENINGOCOCCAL B: Consider based on risk (1 of 2 - Patient Seeks Protection) [facility]ustart: 04-77-4185Kttvlfskw for Chlamydia trachomatisCHLAMYDIA SCREENOSU [facility] Hospitaltart: 37-55-9636HZW screeningHIV SCREENING DISCUSSIONOSU [facility] Hospitaltart: 18-06-9301UZBI TO ADULT TRANSITION ANNUAL ASSESSMENTPEDS TO ADULT TRANSITION ANNUAL ASSESSMENTSt. [facility] Start: 95-89-2368QGI Vaccine (3 - 2-dose series)HPV Vaccine (3 - 2-dose series) [facility]art: 32-67-1087QBV Vaccines (3 - 2-dose series)HPV Vaccines (3 - 2-dose series)[facility]: 30-76-9078Rsindnppub ScreeningDepression ScreeningUNC Healthtart: 82-48-1132RAGI TO ADULT TRANSITION INITIAL DISCUSSIONPEDS TO ADULT TRANSITION INITIAL DISCUSSION [facility] Campustart: 96-79-2662Snbruozoobt for human papillomavirusHPV VACCINE ADOL (1 - 2-dose series)[facility] Hospitaltart: 88-94-0761SAHVIBEIVAAYH B: Consider based on risk (1 of 2 - Risk Bexsero 2-dose series)MENINGOCOCCAL B: Consider based on risk (1 of 2 - Risk Bexsero 2-dose series)[facility] Start: 86-70-4480SQE VACCINE (1 - 2-dose series)HPV VACCINE (1 - 2-dose series) [facility]art: 64-75-7499QEQOPRDBN SCREENGONORRHEA SCREENOSU [facility]: [phone] B (1 of 3 - 3-dose series)HEPATITIS B (1 of 3 - 3-dose series)[facility]: [phone] B Vaccine (1 of 3 - 3-dose series)Hepatitis B Vaccine (1 of 3 - 3-dose series)[facility]: [phone] C antibody, confirmatory testHEPATITIS C VIRUS SCREENINGOSU [facility]: [phone] screeningHIV Screening [facility]: [phone] panelLipid Panel [facility]: [phone] Adult PhysicalYearly Adult [facility] Medical CenterBlood type and Indirect antibody screen panel - BloodType And Screen Lab Timed As needed (Lab) for 1 Occurrences starting 04/16/2024[facility] Service Area Work Phone: Comment on above:As needed (Lab) for 1 Occurrences starting 4CBC W Auto Differential panel - BloodCBC and differential Lab Routine PCOS (polycystic ovarian syndrome) Ordered: 03/24/2025[facility] Comment on above:Ordered: 03/24/2025 End: 19-70-4110Rs angio abd&plvis cntrst mtrl w/wo cntrst imgCTA ABD/PEL W IVCON Radiology Routine Generalized abdominal pain RUQ pain Chronic recurrent pancreatitis (HCC) Diarrhea, unspecified type 1 Occurrences starting 06/13/2023 until 07/12/2024[facility] Work Phone: comment on above:1 Occurrences starting 06/13/2023 until 07/12/2024ermatopathology examDermatopathology exam Pathology and Cytology Timed Neoplasm of unspecified behavior of bone, soft tissue, and skin Release Upon Ordering for 1 Occurrences starting 07/01/2024[facility] Work Phone: comment on above:Release Upon Ordering for 1 Occurrences starting 07/01/2024 End: 94-60-7366HssfsplmefvzbhawLDSB Cardiology Routine Other supraventricular tachycardia (HCC) Palpitations 1 Occurrences starting 10/22/2023 until 10/21/2024[facility] Work Phone: Comment on above:1 Occurrences starting 10/22/2023 until 10/21/2024Follicle stimulating hormoneFollicle stimulating hormone Lab Routine PCOS (polycystic ovarian syndrome) Ordered: 03/24/2025[facility] Comment on above:Ordered: 03/24/2025hCG, quantitative, pregnancyhCG, quantitative, Lab Routine PCOS (polycystic ovarian syndrome) Ordered: 03/24/2025[facility] Work Phone: comment on above:Ordered: 03/24/2025Hemoglobin A1c/Hemoglobin.total in BloodHemoglobin A1c Lab Routine Abnormal uterine bleeding (AUB) Ordered: 03/24/2025[facility] HealthcareComment on above:Ordered: 03/24/2025Luteinizing hormoneLuteinizing hormone Lab Routine PCOS (polycystic ovarian syndrome) Ordered: 03/24/2025[facility] HealthcareComment on above:Ordered: 03/24/2025 End: 78-59-3055Hycjagzc SedationModerate Sedation Procedures Routine Once for 1 Occurrences starting 04/16/2024 until 04/16/2024[facility] Work Phone: Comment on above:Once for 1 Occurrences starting 04/16/2024 until 04/16/2024 End: 78-20-2592Whx abdomen w/o & w/contrast materialMRI ABDOMEN WO/W IVCON Radiology Routine Chronic recurrent pancreatitis (HCC) 1 Occurrences starting 03/16/2023 until 04/14/2024[facility] Work Phone: Comment on above:1 Occurrences starting 03/16/2023 until 04/14/2024 End: 59-26-8155HS Stomach Views for gastric emptying solid phase W radionuclide PONM GASTRIC EMPTYING SOLID Radiology Routine Upper abdominal pain Dyspepsia and disorder of functionof stomach Dyspepsia 1 Occurrences starting 12/28/2023 until 01/26/2025[facility] Occurrences starting 12/28/2023 until 01/26/2025OUTSIDE VENDOR CARDIAC OUTPATIENT EXTENDED RHYTHM RECORDING (WITHOUT TELEMETRY)OUTSIDE VENDOR CARDIAC OUTPATIENT EXTENDED RHYTHM RECORDING (WITHOUT TELEMETRY) Holter Routine Other supraventricular tachycardia (HCC) Palpitations Ordered: 10/22/2023[facility] Work Phone: Comment on above:Ordered: 10/22/2023 End: 72-36-7609ND Gastrointestinal tract upper Views W barium contrast POXR UPPER GI SINGLE CONTRAST Radiology Routine Upper abdominal pain Dyspepsia and disorder of function of stomach 1 Occurrences starting 12/28/2023 until 01/26/2025[facility] Work Phone: Comment on above:1 Occurrences starting 12/28/2023 until 01/26/2025Study Interpretation of outside [facility] Service AreaSurgical pathology studySurgical Pathology Exam Pathology and Cytology Timed Median arcuate ligament syndrome (CMS-HCC) Release Upon Ordering for 1 Occurrences starting 04/16/2024[facility] Service Area Work Phone: comment on above:Release Upon Ordering for 1 Occurrences starting 04/16/2024Thyrotropin [Units/volume] in Serum or PlasmaTSH Lab Routine PCOS (polycystic ovarian syndrome) Ordered: 03/24/2025[facility] HealthcareComment on above:Ordered: 03/24/2025Thyroxine (T4) free [Mass/volume] in Serum or PlasmaT4, free Lab Routine PCOS (polycystic ovarian syndrome) Ordered: 03/24/2025[facility] HealthcareComment on above:Ordered: 03/24/2025Tissue Pathology biopsy reportGerman Hospital Work Phone: Comment on above:Release Upon Ordering for 1 Occurrences starting 09/03/2024, 1 completedLif[facility] Immunizations Immunization DateImmunizationNotesCare FjuveqknApjhlelz99-56-5258xpyel papilloma virus vaccine, quadrivalentElif Rich MD Work Phone: [facility] HospitalBroykawecg13-93-0046bqqsiyxja virus vaccineElif Rich MD Work Phone: [phone]-[facility] HospitalMovyoscaaj86-12-3696PDE, unspecified formulation Dane Merida MD Work Phone: [facility] Work Phone: [phone]u papilloma virus vaccine, quadrivalent Elif Rich MD Work Phone: [facility] HospitalNwkmoeudwc28-82-6708jlmgdwrvbcufm polysaccharide (groups A, C, Y and W-135) diphtheria toxoid conjugate vaccine (MCV4P)Elif Rich MD Work Phone: [facility] HospitalWnprysqejr62-97-7830rmxjoow toxoid, reduced diphtheria toxoid, and acellular pertussis vaccine, adsorbedElif Rich MD Work Phone: [facility] HospitalFcnybehcrk85-28-4101tbjigrsxn virus vaccineElif Rich MD Work Phone: [phone] [place], [place] [address]Yeultyrgba27-90-0284nzqphqmohr, tetanus toxoids and acellular pertussis vaccineElif Rich MD Work Phone: [phone] [place], [place] [address]Gcsslksved64-85-3120qzqxozm, mumps and rubella virus vaccineElif Rich MD Work Phone: [phone] [place], [place] [address]Ywjakafgrq97-98-1971giiftrvdil vaccine, inactivatedElif Rich MD Work Phone: [phone] [place], [place] [address]Ltqevyhegu99-34-1984leruxvgerg, tetanus toxoids and acellular pertussis vaccine, unspecified formulationElif Rich MD Work Phone: [phone] [place], [place] [address]Lwmqqmdwkx22-80-9236pbotchntffeq conjugate vaccine, 7 valentEjustine Rich MD Work Phone: [phone] [place], [place] [address]Oqwttimqqh63-79-2860aaxwievkunl influenzae type b vaccine, conjugate unspecified formulationElif Rich MD Work Phone: [phone] [place], [place] [address]Rvzzpvvuuw73-18-8746grlahyu, mumps and rubella virus vaccineElif Rich MD Work Phone: [phone] [place], [place] [address]Gumhgfaxho48-11-4035sgmrgcmtbx vaccine, unspecified formulationElif Rich MD Work Phone: [phone] [place], [place] [address]Uohqxzfpjr35-03-0570mqkrektqa virus vaccineElif Rich MD Work Phone: [phone] [place], [place] [address]Uiilwpupkc09-58-2217zbkhqrtuch, tetanus toxoids and acellular pertussis vaccine, unspecified formulationElif Rich MD Work Phone: [phone] [place], [place] [address]Snxhnymens23-89-8370zfciwohcetn influenzae type b vaccine, conjugate unspecified formulationElif Rich MD Work Phone: [phone] [place], [place] [address]Uremnvzqse97-52-1161adwgsleah B vaccine, pediatric or pediatric/adolescent dosageElif Rich MD Work Phone: [phone] [place], [place] [address]Ngykibecqz56-37-0116sinvuyigaz vaccine, unspecified formulationElif Rich MD Work Phone: [phone] [place], [place] [address]Eobbgxpadi86-62-2125dviortvlag, tetanus toxoids and acellular pertussis vaccine, unspecified formulationElif Rich MD Work Phone: [phone] [place], [place] [address]Ogtskofnaz56-99-5633vfwdzljzjrf influenzae type b vaccine, conjugate unspecified formulationElif Rich MD Work Phone: [phone] [place], [place] [address]Qnfctqjvry00-20-8013ldevqbezmd vaccine, unspecified formulationElif Rich MD Work Phone: [phone] [place], [place] [address]Frjzrbcuqe40-47-4937rkckxkwvwd, tetanus toxoids and acellular pertussis vaccine, unspecified formulationElif Rich MD Work Phone: [phone] [place], [place] [address]Srqtzzbgsx99-87-3435ycjdwiknper influenzae type b vaccine, conjugate unspecified formulationElif Rich MD Work Phone: [phone] [place], [place] [address]Javylhtlqn49-35-7502uywizvpmh B vaccine, pediatric or pediatric/adolescent dosageElif Rich MD Work Phone: [phone] [place], [place] [address]Uouiynzwzy07-04-7173nbzlksnovi vaccine, unspecified formulationElif Rich MD Work Phone: [phone] [place], [place] [address]Assoiitkiv77-20-3740fhrwupehn B vaccine, pediatric or pediatric/adolescent dosageElif Rich MD Work Phone: [phone] [place] [address] Payers DatePayer CategoryPayerPolicy [id number] Cross Blue [id number] Clinic Managed CareUN[facility] [id number]376.07690-12-2599OqayAlbuquerque Indian Dental Clinic [id number] 2.160.9.606773.85671941-44-1877Vnxobcz 1.2.840.896907.1.13.172.2.7.3.227[id number] 2..5.441125.20598029-18-7937Scfyxqv Health InsuranceUNITED HEALTHCARE 1.2840.056201.1.13.693.2.7.9.274042.734160.93749-27-5632Cezlqoj Health Fatyqwsmr6[id number] 2.0.1.229127.3.579.2.647 [id number] 2.1.675976.3.579.2.51874-33-0157Rrkqgzw [id number] 2.0.1.046825.3.579.2.05256-28-6908Vcjvnrx3619068 2.0.1.391761.3.579.2.59401-20-9830Hhisczx4369992 2.0.1.093794.3.579.2.73692-29-2795Ymsddoy6492838 2.0.1.390805.3.579.2.87546-71-6515Thewnmr8811011 2.16.840.1.053293.3.579.2.94502-53-3052Lwqxbxk0082436 2.16840.1.543841.3.579.2.95471-83-8178Jvdioyx7855271 2.16840.1.561119.3.579.2.54967-41-2252Pkrbgdb3509468 2.16840.1.466506.3.579.2.91549-70-5451Rddouoa5812340 2.16840.1.949465.3.579.2.66761-92-7460Onjjyod3424537 2.840.1.642189.3.579.2.68421-92-9393Rsrenmg7990841 2.840.1.461156.3.579.2.07829-50-2302Wxdvoiv5132010 2.840.1.493767.3.579.2.62190-51-9987Ahirmqe8141174 2.840.1.928268.3.579.2.50514-78-7055Hbuolot4403374 2.840.1.351518.3.579.2.33501-28-4572Scbfflq9788387 2.840.1.262673.3.579.2.71846-04-7368Jupjzwk8452869 2.840.1.351335.3.579.2.07439-31-9641Lgbvfnv1391729 2.16840.1.552683.3.579.2.22057-54-5557Puxalny4986566 2.16840.1.190754.3.579.2.63600-49-6963Cblxsuf2191920 2.16840.1.917140.3.579.2.57687-81-2297Clbaihr0974524 2.16840.1.245866.3.579.2.17439-48-7849Uucrbpu7645153 2.16840.1.159108.3.579.2.42072-04-7932Chqerul4601537 2.16840.1.016046.3.579.2.06095-50-4622Uhlpmjj2604168 2.840.1.185114.3.579.2.16897-92-2391Kzfljfk8546863 2.840.1.820979.3.579.2.76805-83-4942Tpntgae0113028 2.840.1.315560.3.579.2.39128-74-3770Untpmzg2481672 2.840.1.322499.3.579.2.82869-55-7629Efxltku2309867 2.0.1.426439.3.579.2.79289-17-3463Wtivtpj7052277 2.840.1.256856.3.579.2.96687-71-5684Rpbjxve3025622 2.840.1.264059.3.579.2.57135-53-1220Gghnxwt5056404 2.840.1.639745.3.579.2.23695-84-3099Juwtsdt0275047 2.840.1.657371.3.579.2.27017-14-2741Ntkcrpj9485997 2.840.1.044451.3.579.2.82951-81-0209Ycpziuh1979925 2.840.1.684739.3.579.2.44921-61-3797Zxwznua14641208 2.840.1.202399.3.579.2.945678-20-8549Wnfqpth3353318 2.840.1.855787.3.579.2.005504-95-1162Ckzboad2632609 2..840.1.217675.3.579.2.4633Zboacqf79210720 2..840.1.735954.3.579.2.531 Ejhgylg31349715 2..840.1.192035.3.579.2.531 Social History DateTypeDetailFacilityUnknown if ever smokedNort Beta Dash Other Start: 02-06-2023 End: 70-15-9729Kex Assigned At BirthSumma Health Barberton Campustart: 03-15-2022 End: 65-38-7142Dcgfnul smoking status NHISNever smoked tobaccoOSU Cleveland Clinic Mercy Hospitaltart: 03-15-2022 End: 31-40-0110Kfdbzbt use and exposureSmokeless tobacco non-userOSU [facility] Clinic Mercy Hospitaltart: 03-15-2022 End: 15-68-8427Oyjwtoc intakeCurrent drinker of alcohol (finding)[facility] CenterStart: 30-32-5869Cecjaem SDOH Alcohol CommentsocialOSCoshocton Regional Medical Centertart: 07-50-0776Wzt Assigned At BirthNot on fileOSCoshocton Regional Medical Centertart: 87-70-3605Gfsralm smoking status NHISEx-smokerSt. [facility] CampusHistory of tobacco useCurrent smokerSumma Health Barberton Campustart: 02-17-7162Vmf Assigned At BirthFemaleCsheltering arms hospital ClinicStart: 02-06-2023 End: 60-71-3060Ebkwdqd of Social functionSumma Health Barberton Campustart: 55-70-0120Kbece Depression Screening Ddeiythyie7Ehvitgbgy ClinicStart: 98-86-9292Dqwhwz identity Identifies as female gender (finding)[facility] Campustart: 02-77-3898Rnkhnf orientationHeterosexual (finding)[facility] CampusT[facility]ou [facility] [place] smoking status NHIS Tobacco smoking consumption unknownSumma Health Barberton Campustart: 06-06-2023 End: 05-91-6599Adhajpl intakeEx-drinker (finding)[facility] Campustart: 70-07-5355Rcrthpm Commentsocially- rareSumma Health Barberton Campustart: 88-13-2326Fmpfzpm Comment1-2 drinks/monthly or lessNOMS HealthcareHow often to you have a drink containing alcohol?NeverUnBarberton Citizens Hospital Work Phone: Start: 01-26-2024 End: 06-83-1756Jekhpujc to SARS-CoV-2 (event)Not sureWayne HospitalStart: 07-24-2024 End: 48-81-8735MtgEcocgz (finding)[facility]heltering Arms HospitalNEGATED: Highlighted rowSelect Medical [facility] Functional Status RxaxNxnhtnizgrTsmbsgJeijcsta40-05-6315Arfcbxjdub [facility] Work Phone: [phone]gdta - suicide severity rating scale screener - recent [C-SSRS][facility] Work Phone: [phone]xskhkg statusUnBarberton Citizens Hospital Work Phone: [facility] Mental Status XjvcAzzeexigofXuemrgDhknkspy45-00-7590Aqzuuzbgh function findingNegative 04/16/2024 8:18 AM EDT Jyoti Hodges, VIRGILIO NegativeWayne Hospital Work Phone: Clinical Notes 12-02-2020 to 03-24-2025 Note Date & PdmyPkyuPuhsqcym07-75-9820 History of Present illness Narrative* Valery Vazquez LPN - 03/24/2025 1:50 PM EDT Reason for Appointment: Patient ID: Chioma Alonzo is a 24 y.o. female who presents for Infertility (Pt present today to discuss fertility) Patient presents today for Fertility Follow Up appointment. MEDICATIONS Current Outpatient Medications Medication Instructions dicyclomine [...] ovary 01/24/2023 Dysuria 01/24/2023 Generalized anxiety disorder 05/02/2022 Irritable bowel syndrome with diarrhea 05/02/2022 Lower abdominal pain 05/02/2022 Menstrual disorder 01/24/2023 Miscarriage ([facility]) 01/24/2023 Nausea 05/02/2022 Pain due to genitourinary prosthetic devices, implants and grafts, initial encounter 01/24/2023 Photosensitivity 12/08/2022 Recurrent infections 12/09/2021 Underweight [...] Pain due to intrauterine contraceptive device (IUD) Pancreatitis ([facility]) 2014 Urine test negative HISTORY PAST MEDICAL [...] ovary Irregular menses IUD check up Miscarriage ([facility]) Pain due to intrauterine contraceptive device (IUD) Pancreatitis ([facility]) 2014 Dr Owen/ Hospitalization history: 2019, [facility] [...] nursing note reviewed. Exam conducted with a dispute specialist present. Vitals: Estimated body mass index is 19.4 kg/m as calculated from the following: Height as of this encounter: 5' 4 . Weight as of this encounter: 113 lb. BP: 102/62 Patient's last menstrual period was 03/07/2025 (approximate). ASSESSMENT & PLAN ICD-10-CM 1. Encounter for infertility Z31.9 Pt presents to discuss fertility. Pt is currently tracking periods, not using anything to prevent conception. Discussed adding baby aspirin, doing a HSG. Pt has had 2 miscarriages previously. Partnerwill do semen analysis. Pt given labs to have obtained. Documented by Valery Vazquez LPN on behalf of: Jeremiah Burroughs DO documented in this encounterWashington County Memorial HospitalTequqnffcx12-34-3295 History and physical note * Dara Butler Jr., - 09/03/2024 12:30 PM EST HISTORY AND PHYSICAL EXAMINATION SERVICE DATE: 09/03/2024 [...] See Comments, Rash, Shortnessof Breath, Unknown, Vomiting COMPLETE REVIEW OF SYSTEMS: [...] 03, 2024 TIME: 10:18 AM PAGER/CONTACT #: [facility]02-12-2025 History and physical note* Dara Butler Jr., DO - 09/03/2024 12:30 PM EST HISTORY AND PHYSICAL EXAMINATION SERVICE DATE: 09/03/2024 [...] See Comments, Rash, Shortnessof Breath, Unknown, Vomiting COMPLETE REVIEW OF SYSTEMS: [...] 10:18 AM PAGER/CONTACT #: documented in this encounterSt. Mary'S [facility]02-12-2025 Nurse Note* Sera Garner RN - 09/03/2024 10:14 AM EST PRE OP LEARNING ASSESSMENT PROCEDURE/SURGERY: GI PROCEDURES: Colonoscopy READINESS TO LEARN COGNITIVE ABILITY: Alert and oriented MOTIVATION TO LEARN: Eager FAMILY SUPPORT: None - Unavailable/disinterested PATIENT LEARNS BEST BY: Individual Instruction FACTORS AFFECTING LEARNING: None PHYSICAL LIMITATIONS AFFECTING LEARNING: None Pt declined follow up phone. Electronically Signed By: Sera Garner RN In Department: [facility] ENDOSCOPY [facility]02-12-2025 Nurse Note* Sera Garner RN - 09/03/2024 10:14 AM EST PRE OP LEARNING ASSESSMENT PROCEDURE/SURGERY: GI PROCEDURES: Colonoscopy READINESS TO LEARN COGNITIVE ABILITY: Alert and oriented MOTIVATION TO LEARN: Eager FAMILY SUPPORT: None - Unavailable/disinterested PATIENT LEARNS BEST BY: Individual Instruction FACTORS AFFECTING LEARNING: None PHYSICAL LIMITATIONS AFFECTING LEARNING: None Pt declined follow up phone. Electronically Signed By: Sera Garner RN In Department: [facility] ENDOSCOPY [facility] documented in [place] encounterDawn [place] [address]-31-2025 Telephone encounter Note * Telephone Encounter - Shu Wilkins - 08/22/2024 11:18 AM EST Case message sent to [facility] to cancel with Dr. Huffman 08/27 per patient request[address] [facility]01-31-2025 Miscellaneous Notes* Telephone Encounter - Shu Wilkins - 08/22/2024 11:18 AM EST Case message sent to [facility] to cancel with Dr. Huffman 08/27 per patient request. documented in this encounterSt. Mary'S [facility]01-06-2025 Note Attestation signed by Paula Huggins MD [...] be an additional personal documentation from me. [facility] Gastroenterology Follow-Up Patient Visit CHIEF COMPLAINT [...] endometriosis related. She is travelling soon to [place] next 15 days and was mentioning that she was having some UTI symptoms andrequested some medication just in case she starting the antibiotics for C diff and we instructed her that in case of confirming the UTI and starting the treatment to communicate with us to update (more content not included)... [facility]12-26-2024 Telephone encounter Note* Telephone Encounter - Ham Thompson LPN - 07/17/2024 10:41 AM EST Left message that below message viewable on patient's MC. Requested return call if unable to view message. [facility]12-26-2024 Miscellaneous Notes* Telephone Encounter - Ham Thompson LPN - 07/17/2024 10:41 AM EST Left message that below message viewable on patient's MC. Requested return call if unable to view message. * Telephone Encounter - Nae Ibarra MD - 07/15/2024 6:41 PM EST Please Call patient if MyChart note not read to review results/released to My Chart if tests completed at [facility]: normal labs. Take over the counter vitamin D 0126-1513 International Units daily with food. Happy to further review and discuss at follow up visit. Thank you. 07/15/24 normal vitamin D 39.8, vitamin b12-841; documented in this encounterSt. Mary'S [facility]12-24-2024 Telephone encounter Note * Telephone Encounter - Nae Ibarra MD - 07/15/2024 6:41 PM EST Please Call patient if MyChart note not read to review results/released to My Chart if tests completed at [facility]: normal labs. Take over the counter vitamin D 0510-6845 International Units daily with food. Happy to further review and discuss at follow up visit. Thank you. 07/15/24 normal vitamin D 39.8, vitamin b12-841; 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 NO swelling. Chronic current pain in neck upper back. More pain since off nsaids. Mild response with tylenol, misses motrin 00mg.Reports pain 11/29. Has minimal AM stiffness. Feels safe at [...] GI for C.diff & pancreatitis care, see CHECK AIRMAN, start prn heat/ice/otc arthritis creams, low impact [...] 3. Reports hairloss, memory changes, nail changes, headache,rash, see ROS symptoms below. saw functional medication. Has not seen allergy. Still has hives whenexposed to heat/bathtub, outside hot/sun. No recent oral steroids. Walking nightly, hiking exercise. no swelling. Chronic current pain in back pain, sore after activity/mowing lawn sore arms, less kne e/shoulder pain. Reports pain 7-8. Has minimal AM stiffness. Has episodes of fatigue, lightheadedness, concerned she may have low sugar. COVID vaccine 03/16/21, 04/06/21. Feels safe at home. Has enough food, supplies and medications. Overall mildly uncomfortable but happy with rheum care. No falls/ fx/trauma/illness/oral sores/rash/hairloss/jaw pain/dysphagia/epistaxis/hemoptysis since last visit. No adverse [...] hot bath/hives, hives with C.diff Reports pain 3/10 No falls/fx/trauma/illness/oral sores/rash/hairloss/jaw pain/dysphagia/epistaxis/hemoptysis. No adverse effects [...] Dactylitis: no H/o precedent/frequent infection(s): as above Enthesopathy/Cassie's/heel/plantar tenderness: no Skin thickening, psoriasis, photosensitivity, purpura: rashes on UEs/LEs when in sun, itching when in hot bath/hives, hives with C.diff Nail changes: no Alpecia, patchy: yes with infection Eye inflammation: no SICCA: no Oral/nasal/genital ulcers: no GI problems-diarrhea/bleeding/IBD/Gluten intolerence/Dysphagia: gerd Fatigue: yes, sleeps 7 hr/night PMR/GCA ROS: negative Patient denies history of Gout or Pseudogout, Psoriasis, Rheumatic Fever, GERD, PUD, Liver Disease,Hepatitis , Kidney Disease, Kidney Stones, DM, HTN, [...] hormones; G1, P0, 1miscarriage 10/2021 Colonoscopy: outside [facility] 2020 zach rawls Bone Density:no History of Fractures:no Height Loss: no IMMUNIZATION HX: Immunization History Administered Date(s) Administered COVID-19 original vaccine, age 12+ yr, monovalent (AmVac - PURPLE TOP) 03/16/2021 04/06/2021 Pneumovax no Flu shot no Tetanus yes Last PPD: unsure PAST MEDICAL HISTORY: PMH headaches, s/p wisdom teeth extraction, s/p mole back removed PAST SURGICAL HISTORY: s/p wisdom teeth extraction, s/p mole back removed FAMILY HISTORY: mother-healthy;father- osteoarthritis;sister- sick frequently; 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 MUSCULOSK: No [...] tired. Had fecal transplant x 2 for C.diffx 3. 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 NO swelling. [...] and recurrent infection care, avoid triggers, see CHECK AIRMAN, start prn heat/ice/otc arthritis creams, low impact [...] jumping, running or jogging or movements where youbend forward and twist the waist, for instance- touching your toes, sit-ups, using row machine ocean transportation intermediary pain recommendations per primary care provider/pain clinic Nonfasting labs as scheduled Additional time spent with patient on healthy lifestyle, healthy food and anti- inflammatory diet (with emphasis on whole plant based [...] continued care. Will follow disease activity/progression and adjusttherapeutic regimen to disease activity and severity. Discussed [...] been made and documented today. Other parts ordata were deleted if not relevant for today. Plan as outlined. Medical decision making was high complexity due to patient's, multiple symptoms, multiple advancing diseases. Total time spent on this visit, with more than 50% of time spent via video & audio (virtual) or phone or face to face withpatient, in consultation, and in addition to Counseling and Coordination of Care, explanation of candelaria gnosis, and planning of further management; I spent a total of 30 minutes on the date of the service which included preparing to talk with the patient, video & audio (virtual) or phone or pjcj-ev-vixl patient care, completing clinical documentation, obtaining and/or [...] have enclosed a copy of my clinic notewith my assessment and recommendations for this patient. [...] Fall with Injury or Currently Using an AmbulatoryAssistive Device (Walker, Cane, Wheelchair, Crutches, etc.) No [...] Workers' Compensation? No Do you need an science interpreter? No [facility] PROMIS CAT V2.0-PHYSICAL FUNCTION-28 [...] Without ANY difficulty Bend down to picker and sorter load and unload clothing from the floor? Without ANY difficulty [...] bothered by emotional problems such as feeling anxious,depressed or irritable? Sometimes Abnormal Sometimes Abnormal In [...] (GREATER > or = 5) 3 (WITHIN +/-5) Myc Promis Gh Mental Score Compared To Last (range: -2 - 3) 3 (WITHIN +/- 5) 3 (WITHIN +/- 5) MYC PROVIDER UNDERSTANDING CURRENT HEALTH RHEUMATOLOGY Question 07/14/2024 8:33 PM EST - Filed by Patient These questions will help my provider understand my health Agree documented in this encounterSt. [facility]24 NoteHNO ID: [id number] Author: NAE IBARRA MD Service: ? 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 NO swelling. Chronic current pain in neck upper back. More pain since off nsaids. Mild response with tylenol, misses motrin 00mg.Reports pain 11/29. Has minimal AM stiffness. Feels safe at [...] GI for C.diff AND pancreatitis care, see CHECK AIRMAN, start prn heat/ice/otc arthritis creams, low impact [...] sore arms, less knee/shoulder pain. Reports pain 7-03/01. Has minimal AM stiffness. Has episodes of [...] dyspnea, nausea, vomiting, night (more content not included)...[facility]12-24-2024 Instructions * Patient Instructions* Nae Ibarra MD - 07/15/2024 6:51 AM [...] jumping, running or jogging or movements where youbend forward and twist the waist, for instance- touching your toes, sit-ups, using row machine longterm pain recommendations per primary care provider/pain clinic [...] Abs Lymph 1.00 - 4.00 k/uL 2.06 [place]% % 8.1 Abs [place] <0.87 k/uL 0.42 Eosin% % 4.3 Abs [...] hepatitis panel, quantiferon tb; documented in this encounterSt. Mary[facility]12-17-[facility] Evaluation note* Diagnosis Onset Date Resolution Status Admit Date Diarrhea acuteDecember 2023 2:08pm [facility] Work Phone: 1(191) 314-893912-17-2024 Evaluation note* Diagnosis Onset Date Resolution Status Admit Date Diarrhea acuteDecember 2023 2:08pmDysuriaacuteJanuary 2024 11:33am [facility] Work Phone: 1(183) 196-628812-12-2024 History of Present illness Narrative* Valery Vazquez, STRATEGIC MANAGER - 07/03/2024 11:40 AM EST Reason for [...] ovary 01/24/2023 Dysuria 01/24/2023 Generalized anxiety disorder (CMS/HCC) 05/02/2022 Irritable bowel syndrome with diarrhea 05/02/2022 Lower abdominal pain 05/02/2022 Menstrual disorder 01/24/2023 Miscarriage 01/24/2023 Nausea 05/02/2022 Pain due to genitourinary prosthetic devices, implants and grafts, initial encounter (CMS/HCC) 01/24/2023 Photosensitivity 12/08/2022 Recurrent infections 12/09/2021 Underweight [...] Pain due to intrauterine contraceptive device (IUD) ([facility]) ([facility]) Pancreatitis 2014 Urine test negative HISTORY PAST [...] Pain due to intrauterine contraceptive device (IUD) ([facility]) ([facility]) Pancreatitis 2014 Dr Owen/ Hospitalization history: 2019, TB 5 days Urine test negative Social History [...] / LYSIS 01/12/2023 MOLE REMOVAL 2019 Andrew FIELDSDOM TOOTH EXTRACTION 2016 REVIEW OF SYSTEMS Review of Systems: Review [...] nursing note reviewed. Exam conducted with a dispute specialist present. Vitals: Estimated body mass index is [...] Jeremiah Burroughs DO documented in this encounterWashington County Memorial [id number] Telephone encounter Note* Telephone Encounter - Jorge Oropeza - 07/03/2024 9:20 AM EST BLOCK CELIAC PLEXUS WITH C-ARM needs rescheduled. Please reach out to her to reschedule this. [facility]12-12-2024 Miscellaneous Notes* Telephone Encounter - Jorge Oropeza - 07/03/2024 9:20 AM EST BLOCK CELIAC PLEXUS WITH C-ARM needs rescheduled. Please reach out to her to reschedule this. documented in this encounterSt. Mary'[facility]12-10-2024 History of Present illness Narrative* Elif Rich [...] pending biopsy results documented in this encounterWashington County Memorial [id number] Telephone encounter Note* Telephone Encounter - Shu Wilkins - 06/23/2024 4:53 PM EST Case message sent to surgery pool to cancel with Dr. Huffman 07/[address] [facility]12-02-2024 Miscellaneous Notes* Telephone Encounter - Shu Wilkins - 06/23/2024 4:53 PM EST Case message sent to surgery pool to cancel with Dr. Huffman 07/04 per patient request. * Telephone Encounter - Bonny Joyner - 06/23/2024 10:36 AM EST PT called asking to cancel their procedure scheduled on 07/04/2024. Please review and advise. Thank you! documented in this encounterSt. Mary'[facility]12-02-2024 Telephone encounter Note * Telephone Encounter - Bonny Joyner - 06/23/2024 10:36 AM EST PT called asking to cancel their procedure scheduled on 07/04/2024. Please review and advise. Thank you! [facility]10-23-2024 Telephone encounter Note* Telephone Encounter - Shu Wilkins - 05/14/2024 1:38 PM EDT diagnostic celiac plexus blockade CHIOMA ALONZO [id number] DESMOND HUFFMAN 07/04 -THINNERS -DM Patient was made aware that the ASC will call the day prior to scheduled procedure between the hours of 12 and 4 pm to advise patient of arrival time the day of procedure. Patient was advised that they will require a hyster driver on the day of their procedure, and procedure will be cancelled if they arrive without a responsible adult to transport them home from the procedure. Patient advised that all medication management instructions prior to procedure will need addressed by clinical staff. Patient expresses understanding with no further questions or concerns at this time. [facility]10-23-2024 Miscellaneous Notes* Telephone Encounter - Shu Wilkins - 05/14/2024 1:38 PM EDT diagnostic celiac plexus blockade CHIOMA ALONZO [id number] DESMOND HUFFMAN 07/04 -THINNERS -DM Patient was made aware that the ASC will call the day prior to scheduled procedure between the hours of 12 and 4 pm to advise patient of arrival time the day of procedure. Patient was advised that they will require a hyster driver on the day of their procedure, and procedure will be cancelled if they arrive without a responsible adult to transport them home from the procedure. Patient advised that all medication management instructions prior to procedure will need addressed by clinical staff. Patient expresses understanding with no further questions or concerns at this time. documented in this encounterSt. Mary'[facility]10-23-2024 Telephone encounter Note * Telephone Encounter - Shu Wilkins - 05/14/2024 1:36 PM EDT OPENED IN ERROR [facility]10-23-2024 Miscellaneous Notes* Telephone Encounter - Shu Wilkins - 05/14/2024 1:36 PM EDT OPENED IN ERROR documented in this encounterSt. Mary'S [facility]10-09-2024 NoteHNO ID: [id number] Author: PAULA PRETTY MD Service: ? Author [...] than the standard meal, (more content not included)...[facility]10-09-2024 History of Present illness Narrative* Paula [...] Mental Health Percentile 26* 34 26* 12/07/2022 03/19/202404/2904/29/2024 Physical Health Physical Function Percentile 27* 27* [...] which lowers the sensitivity of the study. Oracle Consultant: PSCB Transcribe Date/Time: Jan 30 2024 2:09P [...] any questions regarding this interpretation, please call [phone]. If you are unable to reach us at the number above, please feel free to contact [facility] at [phone]. Results-Findings * * *Final Report* * * DATE OF EXAM: Jul 05 2023 11:20AM [facility] 0311 - CTA ABD/PELV W IVCON [...] collection. Bones/Soft Tissues: No significant finding. Business Management Professor (topogram) images: No additional findings. Result History CTA ABD/PEL W IVCON (Order #[id number]) on 07/05/2023 - Order Result History R [...] bentyl prn 3 times/week. Last colonoscopy in [place] and normal. No response to creon Fecal [...] which included: *preparing to see the patient *bacl-ov-lvub patient care *completing clinical documentation *obtaining and/or [...] MD April 30, 2024 documented in this encounterSt. Mary'[facility]10-03-2024 Telephone encounter Note * Telephone Encounter - Gisela Ponce RN - 04/24/2024 2:53 PM EDT Pt of Dr. Butler. Pt is scheduled with Dr. Menon for f/u OV 05/07/2024 (made on 12/12/2023). No need for f/u OV with Dr. Menon. Continue f/u with Dr. Butler as well as Dr. Ambriz ([facility] Attempted to call pt, no answer. Left detailed voice msg that OV with be cancelled. Instructed to call back with any questions. Gisela Ponce RN [facility] Work Phone: [phone]) 776-645910-03-2024 Miscellaneous Notes* Telephone Encounter - Gisela Ponce RN - 04/24/2024 2:53 PM EDT Pt of Dr. Butler. Pt is scheduled with Dr. Menon for f/u OV 05/07/2024 (made on 12/12/2023). No need for f/u OV with Dr. Menon. Continue f/u with Dr. Butler as well as Dr. Ambriz ([facility]). Attempted to call pt, no answer. Left detailed voice msg that OV with be cancelled. Instructed to call back with any questions. Gisela Ponce RN documented in this encounterSt. Mary'S [facility]09-25-[facility] Hospital Discharge instructions* Discharge Instructions* Kenny Batista [...] ofhaving your procedure, call the [facility] to be advised whether a visit to [...] inflamed, or looks infected. documented in this [facility] Work Phone: 1(598) 412-701109-04-2024 NoteHNO ID: [id number] Author: PAULA PRETTY MD Service: ? Author Type: Anesthesiologist Type: Progress Notes Filed: 03/26/2024 12:27 Note Text: power outage in building appt rescheduled Paula Pretty [facility]09-04-2024 History of Present illness Narrative* Paula Pretty MD - 03/26/2024 10:55 AM EDT power outage in building appt rescheduled Paula Pretty MD documented in this encounterSt. Mary'[facility]08-21-2024 Telephone encounter Note * Telephone Encounter - Yvrose Martinez RN - 03/12/2024 11:46 AM EDT Call placed to patient to relay below message, patient verbalized understanding. Order for c.diff placed Dara Butler Jr., DO [facility]08-21-2024 Miscellaneous Notes* Telephone Encounter - Yvrose Martinez [...] like callback with recommendations/order documented in this encounterSt. Mary'[facility]08-21-2024 Telephone encounter Note * Telephone Encounter - [...] advise, patient would like callback with recommendations/order [facility]08-14-2024 History of Present illness Narrative* Whitney Ambriz [...] do notcorrelate with eating. Last colonoscopy in [place] and normal. Sometimes feels like can't take [...] with her after her block. [facility] 01/30/24: RESULT: Solid study demonstrates: - 70% gastric retention at 1 hour (normal range, 37-90%), - 47% retention at 2 hours (normal range, 30-60%), and - 4% retention at 4 hours (normal range, 0-10%). CT Angio abdomen pelvis 07/05/23 at [facility] Dr. Menon: IMPRESSION: Likely physiologic extrinsic [...] limits. Heptobiliary Scan 11/2022: Diagnostic Colonoscopy 07/2022 [facility]: Impression: Unremarkable colon examination. No ulceration, no [...] Types: Marijuana MEDICATIONS: Prior to Admission Medications: [facility] ALLERGIES: No Known Allergies REVIEW OF SYSTEMS: [...] do notcorrelate with eating. Last colonoscopy in [place] and normal. Sometimes feels like can't take [...] Director of Bariatric & Minimally Invasive Surgery [address] [address] T: [phone] F: [phone] Sita Santos RN Diabetes Specialist Nurse Analytical Chemist, Metal Or Wood Blocker Patient Nursing Contact T: [phone] F: [phone] Urmila Baker LPN Coordinator T: [phone] F: [phone] documented in this encounterWayne [facility] Work Phone: 1(662) 743-114308-14-2024 Instructions* Patient Instructions* Whitney Ambriz MD MPH - 03/05/2024 2:15 PM EDT PLAN: I will do an endoscopy I would like get pics from the last couple of CT scans. Get the injection. Let's put all of this together and see where we are. Dr. Whitney Ambriz M.D., MPH Director of Bariatric & Minimally Invasive Surgery [place] [address] T: [phone] F: [phone] Sita Santos RN Diabetes Specialist Nurse Analytical Chemist, Metal Or Wood Blocker Patient Nursing Contact T: [phone] F: [phone] Urmila Baker LPN Coordinator T: [phone] F: [phone] documented in this encounterWayne Hospital Work Phone: 1(958) 434-163808-06-2024 History of Present illness Narrative* Bola Braden [...] which included preparing to see the patient, jozh-ul-rllc patient care, completing clinical documentation, obtaining and/or reviewing separately obtained history, performing a medically appropriate examination, counseling and educating the pat ient/family/caregiver, and independently interpreting results (not separately reported). Bola Braden MD February 26, 2024 * Bola Braden MD - 02/26/2024 3:21 PM EDT error documented in this encounterSt. Mary'[facility]08-06-2024 NoteHNO ID: [id number] Author: BOLA BRADEN MD Service: ? Author [...] Systems Gastroenterology (Submi (more content not included)... [facility]08-06-2024 NoteHNO ID: [id number] Author: BOLA BRADEN MD Service: ? Author Type: Physician Type: Progress Notes Filed: 02/26/2024 18:47 Note Text: errorOhiohealth Van [facility]ert Hospital08-06-2024 Nurse Note* Eva Gray MA - 02/26/2024 3:18 PM EDT What is the reason for your visit today? Consult Who is your referring physician? None Are you having poor oral intake? NO Have you had unintentional weight loss of 15 lbs/7 Kg in the last 3-6 months? NO Bowels: diarrhea or regular Wound: None Temperature: No Drains: No [facility]08-06-2024 Nurse Note* Eva Gray MA - 02/26/2024 3:18 PM EDT What is the reason for your visit today? Consult Who is your referring physician? None Are you having poor oral intake? NO Have you had unintentional weight loss of 15 lbs/7 Kg in the last 3-6 months? NO Bowels: diarrhea or regular Wound: None Temperature: No Drains: No documented in this encounterSt. Mary'S [facility]07-22-2024 History of Present illness Narrative* Wayne Templeton [...] (Walker, Cane, Wheelchair, Crutches, etc.)? [facility] GEND[facility] DATA: Female. status: : No status: NO. PATIENT RELEVANT IMPLANT DATA REVIEWED: Not Applicable PATIENT PRESENTS WITH AN IMPLANTABLE OR ATTACHED SALVAGE INSPECTOR WOOD PARTS: No RADIOLOGY DEPARTMENT: General X-ray: Exam(s) Completed: GI/ Procedure(s): Upper GI with barium contrast PERIPHERAL IV DATA: Not applicable SIGNED BY: RT Tabitha(R) February 11, 2024 9:44 AM documented in this encounterSt. Mary'[facility]07-22-2024 NoteHNO ID: [id number] Author: WAYNE TEMPLETON RT(R) Service: ? Author [...] PATIENT PRESENTS WITH AN IMPLANTABLE OR ATTACHED SALVAGE INSPECTOR WOOD PARTS: No RADIOLOGY DEPARTMENT: General X-ray: Exam(s) Completed: GI/ Procedure(s): Upper GI with barium contrast PERIPHERAL IV DATA: Not applicable SIGNED BY: RT Tabitha(R) February 11, 2024 9:44 [facility]07-16-2024 History of Present illness Narrative* Dane Merida [...] her after her block. documented in this [facility] Work Phone: 1(900) 533-249507-10-2024 History of Present illness Narrative* Vitor Harp CNMT - 01/30/2024 8:30 AM EDT RADIOLOGY SERVICE [...] PATIENT PRESENTS WITH AN IMPLANTABLE OR ATTACHED SALVAGE INSPECTOR WOOD PARTS: No CREATININE: Creatinine Date Value Ref Range [...] 826 PATIENT DISCHARGED TO: Ambulatory patient, left [place] department area. A Diagnostic radioactive procedure has taken place, with no further precautions necessary other than routine body substance precautions. More information regarding radiation safety can be found usingthis link: [email or web address]%20Nuclear%20Medicine%20Procedures.[email or web address] SIGNATURE: MARTÍN De La Rosa PATIENT NAME: Chioma Alonzo DATE: January 30, 2024 TIME: 10:38 AM PAGER/CONTACT #: documented in this encounterSt. Mary'[facility]07-10-2024 NoteHNO ID: [id number] Author: VITOR HARP CNMT Service: ? Author Type: Paper Hanger Type: Progress Notes Filed: 01/30/2024 10:40 [...] PATIENT PRESENTS WITH AN IMPLANTABLE OR ATTACHED SALVAGE INSPECTOR WOOD PARTS: No CREATININE: Creatinine Date Value Ref Range [...] [address] PERFORMED: No IV SITE: [place] only - not applicable, oral or physician administered agents given to patient POST EXAM PIV STATUS: Not applicable PROCEDURE TYPE: NM GET: 1.1 mCi Tc99m SULFUR COLLOID was administered orally via 4 oz eggbeaters and 4 ounces of water orally. ADMINISTRATION TIME: 826 PATIENT DISCHARGED TO: Ambulatory patient, left [place] department area. A Diagnostic radioactive procedure has taken place, with no further precautions necessary other than routine body substance precautions. More information regarding radiation safety can be found using this link: [email or web address] 20Diagnostic%20Nuclear%20Medicine%20Procedures.[email or web address] SIGNATURE: MARTÍN De LaR osa PATIENT NAME: Chioma Alonzo DATE: January 30, 2024 TIME: 10:38 AM [facility]AGER[facility]CONTACT [phone] Telephone encounter Note* Telephone Encounter - Vitor Harp CNMT - 01/29/2024 1:15 PM EDT SPOKE WITH PT TO CONFIRM APT TO AND EXPLAIN THE EXAM AND ANY PREP. [facility]07-09-2024 Miscellaneous Notes* Telephone Encounter - Vitor Harp CNMT - 01/29/2024 1:15 PM EDT SPOKE WITH PT TO CONFIRM APT TO AND EXPLAIN THE EXAM AND ANY PREP. documented in this encounterSt. Mary'S [facility]06-20-[facility] History of Present illness Narrative* Mckenzie Shepherd APRN-DIOR - 01/10/2024 9:30 AM EDT Images from [...] Status post laparoscopic appendectomy [Z90.49] AMANDO BARON [facility] General Surgery Brookesmith/Amalia This note was created with the assistance of a speech recognition program. While intending to generate a timely document that accurately reflects the content of the visit, no guarantee can be provided that every grammatical or spelling mistake has been or will be identified or corrected. Thank you for your understanding. AMANDO Baron 01/16/24 1213 documented in this encounterMain [facility] Medical Center06-07-2024 Instructions* Patient Instructions* Dara Butler Jr., - 12/28/2023 3:15 PM EDT Check gastric emptying study Check Upper GI series Start amitriptyline Start pantoprazole Stop Carafate May use Levbid as needed documented in this encounterSt. Mary'S [facility]06-07-20[facility] History of Present illness Narrative* Dara Butler [...] an issue, start amitriptyline. Consider referral to [facility] if symptoms fail to improve. Although the [...] last colonoscopy was 8 months ago in [place]. Start amitriptyline Keep appt with Dr. Menon [...] divisum. 12/01/22 HIDA scan was done at [facility]: Normal study EF 69% US: 10/31/22: [...] with 350 mL of normal saline. 08/02/22 [facility] Gastroenterology Chioma Alonzo is a 21 [...] Lymph 1.00 - 4.00 k/uL 2.43 2.06 [place]% % 8.4 8.1 Abs [place] <0.87 k/uL 0.47 0.42 Eosin% % 3.4 [...] SOLID Dara Butler Jr. documented in this encounterSt. Mary'[facility]06-07-2024 NoteHNO ID: [id number] Author: DARA BUTLER JR, DO Service: ? [...] an issue, start amitriptyline. Consider referral to [facility] if symptoms fail to improve. Although the [...] last colonoscopy was 8 months ago in [place]. Start amitriptyline Keep appt with Dr. Menon [...] divisum. 12/01/22 HIDA scan was done at [facility]: Normal study EF 69% US: 10/31/22: (care everywhere) Liver normal Gallbaldder appears normal with no stones or sludge. No gallbladder wall thickening CBD 1.[address] abd/pel w/IV cont: 10/18/22: (scanned): Liver: no enlargement, atrophy, or focal lesion Biliary: no dilation or calcification Pancreas: haziness and p (more content not included)...[facility]06-05-2024 Telephone encounter Note* Telephone Encounter - [...] and advise. Thank you Analia Estevez RN [facility]06-05-2024 Miscellaneous Notes* Telephone Encounter - Analia Estevez [...] advise. Analia Estevez RN documented in this encounterSt. Mary'S [facility]06-03-2024 Telephone encounter Note * Telephone Encounter - Analia Estevez RN - 12/24/2023 10:06 AM EDT Maintain Levbid. Start Carafate. Ok to move up appt to December. Dara Butler Jr., DO Please call pt to set up an office visit in December, may use hold spot if needed. Thank you. Analia Estevez RN [facility]06-03-2024 Telephone encounter Note* Telephone Encounter - Analia Estevez RN - 12/24/2023 8:[address] Butler, would you prefer to see pt sooner in December? She was started on Levbid recently with no real improvement and requesting sooner office visit? Wondering if she might benefit from seeing functional medicine? Please review and advise. Analia Estevez RN [facility]05-15-2024 History of Present illness Narrative* Ariella Mccoy APRN.CNP - 12/05/2023 2:00 PM EDT Images from [...] up: KAREN Mccoy APRN.CNP documented in this encounterSt. Mary'S [facility]05-15-2024 NoteHNO ID: [id number] Author: ARIELLA MCCOY APRN.CNP Service: ? Author [...] that may arise. Follow up: KAREN Mccoy APRN.CNPOhiohealth Van [facility]05-15-2024 Nurse Note* Alivia Gracia MA - 12/05/2023 1:44 PM EDT What is the reason for your visit today? Post op 11/21/23 ghanshyam maricarmen Who is your referring physician? ER Are you having poor oral intake? NO Have you had unintentional weight loss of 15 lbs/7 Kg in the last 3-6 months? NO Bowels: were good, then ended up with stomach bug and got over it on Sunday but no bowel movement since Sunday Wound: clean & dry Temperature: No Drains: No [facility]05-15-2024 Nurse Note* Alivia Gracia MA - 12/05/2023 [...] Temperature: No Drains: No documented in this encounterSt. Mary'[facility]24 NoteHNO ID: [id number] Author: ?, ?, ? Service: ? Author Type: ? Type: Plan of Care Filed: 11/26/2023 17:37 Note Text: PHARMACY BEDSIDE DELIVERY SERVICE Patient Name: Chioma Alonzo The marked outpatient medications were filled and picked up at [facility] Medication List START taking [...] or your Primary Care Provider. 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 SIGNATURE: Thelma Marquis APRN.DRUG COORDINATOR PATIENT NAME: Chioma Alonzo DATE: November 21, 2023 TIME: 2:22 PM CSN: [id number] Telephone encounter Note * Telephone Encounter - [...] surgery. Hope this helps! Augustus Rushing MD [facility]04-26-2024 Miscellaneous Notes* Telephone Encounter - Madhu Causey [...] his last OV * Telephone Encounter - Madhu Causey PA-C - 11/15/2023 3:08 PM EDT Images from the original note were not included. Greetings Dr. Rushing , Your patient was seen for preanesthesia consult 11/15/2023. Chioma Alonzo is scheduled for LAPAROSCOPIC CHOLECYSTECTOMY with Dr. Seema Davis on 11/21/2023. Do you feel they are medically optimized and ok to proceed as scheduled? Event monitor preliminary reading in [facility] [ID [id number]] ECHO completed in [facility]. Of note she also has been to the ED 2 times for her palpitations since your visit, with c/o of palpations intermittently throughout the day. she denies associated SOB or dizziness. She reports her symptoms have not changed. Thank you, Madhu Causey PA-C Preanesthesia Consultation Clinic documented in this encounterSt. [facility] Telephone encounter Note * Telephone Encounter - [...] a cardiac standpoint. Per his last OV [facility]04-25-2024 Telephone encounter Note* Telephone Encounter - Madhu [...] as scheduled? Event monitor preliminary reading in [facility] [ID [id number]] ECHO completed in [facility]. Of note she also has been to the ED 2 times for her palpitations since your visit, with c/o of palpations intermittently throughout the day. she denies associated SOB or dizziness. She reports her symptoms have not changed. Thank you, Madhu Causey PA-C Preanesthesia Consultation Clinic [facility]04-25-2024 History and physical note* Madhu Causey PA-C [...] SOB. Pulse today 75, regular rhythm today [id number]- 0 Ejection Fraction - Result: 63 % [...] COVID-19 original vaccine, age 12+ yr, monovalent (Zhanzuo- [employer] - PURPLE TOP) 03/16/2021 Imm Admin: COVID-19 original vaccine, age 12+ yr, monovalent (Zhanzuo- [employer]ION[employer]un[employer] - PURPLE TOP) REVIEW OF SYSTEMS: positive findings are BOLD PAIN ASSESSMENT: Pain Pain Level: 5 Pain Location: Back-Lower Description: Aching Duration Units: Months Frequency: Continuous Intervention/Comfort measure: Relaxation, Heat General: No weight loss, malaise or fevers. Neuro: No history of TIA's, stroke, YARN REWINDER tumor, impaired sensorium, hemiplegia, paraplegia or quadraplegia. No neurological symptoms or problems. Respiratory: No history of current cough or dyspnea, or pneumonia in the past 6 weeks. No history of respiratory/pulmonary symptoms or problems. Cardiovascular: Palpitations (SVT) Negative for Recent KS, CAD, CHF, HTN Negative for chest pain, [...] 402 QTC Calculation (Bazett) 424 Calculated P [place] 76 Calculated R [place] 37 Calculated T [place] 57 Impression NORMAL SINUS RHYTHM WITH SINUS ARRHYTHMIA POSSIBLE LEFT ATRIAL ENLARGEMENT RSR' PATTERN IN V1 SUGGESTS INCOMPLETE RIGHT BUNDLE BRANCH BLOCK BORDERLINE ECG NO PREVIOUS ECGS AVAILABLE Confirmed by JENNIFER SURESH MD ([id number]) on 10/22/2023 1:00:28 PM Most recent Echo Recent Results (from the past 36220 hour(s)) ECHO Collection Time: 11/07/23 1:59 PM [...] were present. Isolated VEs were frequent (6.9%, 13387), VE Couplets were rare (<1.0%, 21), and no VE Triplets were present. Ventricular Bigeminy and Trigeminy were present. Instructions Given to Patient: Instructions located in the after visit summary. Patient given verbal and written preop instructions and voices comprehension and compliance. SIGNATURE: Madhu Causey PA-C PATIENT NAME: Chioma Alonzo DATE: 11/15/2023 TIME: 2:[address] [facility]04-25-2024 History and physical note* Madhu Causey PA-C [...] SOB. Pulse today 75, regular rhythm today [id number]- 0 Ejection Fraction - Result: 63 % [...] Prior to Admission medications as of 11/15/23 9299 Medication Sig Last Dose Taking dicyclomine (BENTYL) [...] original vaccine, age 12+ yr, monovalent (PFIZER- BION[employer]unlight Foundation - PURPLE TOP) 03/16/2021 Imm Admin: COVID-19 original vaccine, age 12+ yr, monovalent (PFIZER- BIONTECH - PURPLE TOP) REVIEW OF SYSTEMS: positive findings are BOLD PAIN ASSESSMENT: Pain Pain Level: 5 Pain Location: Back-Lower Description: Aching Duration Units: Months Frequency: Continuous Intervention/Comfort measure: Relaxation, Heat General: No weight loss, malaise or fevers. Neuro: No history of TIA's, stroke, YARN REWINDER tumor, impaired sensorium, hemiplegia, paraplegia or quadraplegia. No neurological symptoms or problems. Respiratory: No history of current cough or dyspnea, or pneumonia in the past 6 weeks. No history of respiratory/pulmonary symptoms or problems. Cardiovascular: Palpitations (SVT) Negative for Recent KS, CAD, CHF, HTN Negative for chest pain, [...] 402 QTC Calculation (Bazett) 424 Calculated P [place] 76 Calculated R [place] 37 Calculated T [place] 57 Impression NORMAL SINUS RHYTHM WITH SINUS ARRHYTHMIA POSSIBLE LEFT ATRIAL ENLARGEMENT RSR' PATTERN IN V1 SUGGESTS INCOMPLETE RIGHT BUNDLE BRANCH BLOCK BORDERLINE ECG NO PREVIOUS ECGS AVAILABLE Confirmed by JENNIFER SURESH MD ([id number]) on 10/22/2023 1:00:28 PM Most recent Echo Recent Results (from the past 76306 hour(s)) ECHO Collection Time: 11/07/23 1:59 PM [...] were present. Isolated VEs were frequent (6.9%, 98296), VE Couplets were rare (<1.0%, 21), and no VE Triplets were present. Ventricular Bigeminy and Trigeminy were present. Instructions Given to Patient: Instructions located in the after visit summary. Patient given verbal and written preop instructions and voices comprehension and compliance. SIGNATURE: Madhu Causey PA-C PATIENT NAME: Chioma Alonzo DATE: 11/15/2023 TIME: 2:43 PM documented in this encounterSt. [facility] Instructions* Patient Instructions* Madhu Causey PA-C - 11/12/2023 9:12 AM EDT PATIENT PREOPERATIVE INSTRUCTIONS Seema Davis MD has scheduled you for your procedure at this surgery center: [facility]: [phone] --[phone] [phone]. Please check in on the1st floor at [...] Procedures: - YOU MUST HAVE A RESPONSIBLE DISTRICT ADVISER TAKE YOU HOME. A COUNSELING PROGRAM LEADER OR SALES OFFICER CANNOT BE MADE A RESPONSIBLE DISTRICT ADVISER. - We recommend that a responsible person stays with you overnight to take care of you. - You cannot stay in a hotel alone after outpatient surgery. You will not be permitted to have yoursurgery, if you do not have someone to take care of you. If you already have an Advance Directive, please fax a copy to [phone] or email to for it to be [...] day. Madhu Causey PA-C documented in this encounterSt. Mary'[facility] Miscellaneous Notes* Telephone Encounter - Sedrick Rushing MD - 11/05/2023 12:37 PM EDT Spoke with Ms Alonzo over the phone. For now, I will wait for the results of the Zio and the Echo andwill reach back out. There is a chance that she may need to see EP, but I would like to see how frequently she is in Bigeminy. documented in this encounterSt. Mary'[facility]04-[facility]2024 Miscellaneous Notes* Telephone Encounter - Chichi Monroy [...] ongoing symptoms Staying hydrated Concerned Call CELL [phone] Leave Detailed messages * Telephone Encounter - Juanis Cabello RN - 10/30/2023 11:08 AM EDT The pt is calling. Please review the my chart message from today for an EKG attachment she sent from her ED visit last night. She went to the [place] ED. Are you able to revue her [...] a message. Thank you documented in this encounterSt. Mary'[facility]04-[facility]24 Miscellaneous Notes* Telephone Encounter - Wilfredo Avila OCCA - 10/23/2023 1:51 PM EDT Received form requesting cardiac evaluation for surgical clearance from [facility] with Dr. Seema Davis. Surgery Date: 11-21-[address] [facility]: [phone] Rushing to review. CHATO Ramirez documented in this encounterSt. Mary'[facility]04-[facility]-2024 Miscellaneous Notes* Telephone Encounter - Kym Gray RN - 10/23/2023 1:[address] Sedrick Rushign's office for cardiac clearance at [phone]. Abnormal heart sounds withgallbladder consult on 10/19/23. Received confirmation. Sent to scanning documented in this encounterSt. Mary'[facility] Nurse Note* Azael Larson LPN - 10/22/2023 3:33 PM EDT EVENT MONITOR DISPOSABLE PATCH INSTRUCTIONS Patient Name: Chioma Alonzo [facility] Number: [id number] Skin prepped and cleansed with alcohol Patch secured to prepped area Monitor Activated Serial #: [id number] Patient Instructed: Prescribed order timeframe Bathing guidelines Usage of event button and diary documentation Return of monitor at the end of prescribed order Call with problems [phone] or [phone] ext. [phone] Patient expresses a good understanding of instructions Azael Larson LPN documented in this encounterSt. Mary'[facility] History of Present illness Narrative* Sedrick Rushing MD - 10/22/2023 3:00 PM EDT Images from the original note were not included. [facility] [place] [facility] Pathak Department of Cardiovascular Medicine SECTION OF REGIONAL CARDIOLOGY OUTPATIENT VISIT DATE October 21, 2023 OUTPATIENT VISIT TYPE NEW CONSULTATION PRIMARY CARE PHYSICIAN: Analia Holliday [address] [place] [address] CHIEF COMPLAINT: Palpitations HISTORY OF PRESENT ILLNESS: Ms. Cindy is a pleasant 22 year old female [...] Rash, Shortnessof Breath, Unknown, Vomiting CURRENT MEDICATIONS: xzcuoh-gkdqdxdf-ppzpzfn (CREON) 24,000-76,000 -120,000 unit delayed release capsule [...] on File Prior to Visit Medication Sig letjqd-gftgmppk-idwkdmj (CREON) 24,000-76,000 -120,000 unit delayed release capsule [...] Sedrick Rushing MD Cardiovascular Medicine Staff [facility] [address] [place] [address] documented in this encounterSt. Mary'[facility]04-[facility]2024 NoteHNO ID: [id number] Author: SEDRICK RUSHING MD Service: ? Author Type: Physician Type: Progress Notes Filed: 10/22/2023 15:17 Note Text: [facility] [place] [facility] Department of Cardiovascular Medicine SECTION OF REGIONAL CARDIOLOGY OUTPATIENT VISIT DATE October 21, 2023 OUTPATIENT VISIT TYPE NEW CONSULTATION PRIMARY CARE PHYSICIAN: Analia Holliday [address] [facility] [address] CHIEF COMPLAINT: Palpitations HISTORY OF PRESENT ILLNESS: [...] Shortness of Breath, Unknown, Vomiting CURRENT MEDICATIONS: nwothy-ueedkgwv-mxjylxb (CREON) 24,000-76,000 -120,000 unit delayed release capsule [...] on File Prior to Visit Medication Sig ehvcql-qjmmkqwl-jnqnpdh (CREON) 24,000-76,000 -120,000 unit delayed release capsule [...] INFORMATION: Sedrick Rushing MD Cardiovascular Medicine Staff [facility] [address] [place] [address] [facility]bm[facility]-29-[facility]24 NoteHNO ID: [id number] Author: KYM GRAY RN Service: ? Author [...] Kym Gray RN In Department: GENERAL SURGERY [facility]03-29-2024 NoteHNO ID: [id number] Author: KYM GRAY RN Service: ? Author [...] gallbladder EF-69%. This measurement is within normal limitsOhiohealth Van Wert Hospital03-29-2024 NoteHNO ID: [id number] Author: SEEMA DAVIS MD Service: ? Author [...] Take 4 mg by mouth as needed. 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 Lives with her [...] the date of the service which included cars-zy-qzta patient care, completing clinical documentation, obtaining and/or reviewing separately obtained history, performing a medically appropriate examination, counseling and educating the patient/family/caregiver, and independently interpreting results (not separately reported). Seema Davis MD .[facility]03-29-2024 NoteEducation (GABRIELLA) CINDYCHIOMA Newberry Jovana ([id number]) 2000 F Date Time Provider Department 10/19/23 KYM GRAY Reason for Visit: Education Of Patient/family [904] Primary Visit Diagnosis:Acalculous cholecystitis [K81.9] Order(s):PT ED DIGESTIVE DISEASE [9170141] Order #: [id number]: 1 During your visit today, we recorded [...] Fully Assessed Prescriptions as of 10/19/2023 - umkcpx-piwqoiak-nfjomfa (CREON) 24,000-76,000 -120,000 unit delayed release capsule [...] needed. Encounter Status:Closed by KYM GRAY on 10/19/23[facility] 09-11-2023 Miscellaneous Notes* Telephone Encounter - Gisela Ponce RN - 09/11/2023 4:25 PM EST Please refer to [facility] dated 09/11/2023. Gisela Ponce RN * Telephone Encounter - Jose ManueljajaZo - 09/11/2023 3:08 PM EST Patient calling to see if she is to follow up with Dr. Menon. He did recommend surgeon consult for cholecystectomy. Patient is asking for referral Please adivse patient documented in this encounterSt. Mary'[facility] Nurse Note* Rickie Gu RN - 09/06/2023 [...] None REFERRAL (RECOMMENDATION): None documented in this encounterSt. Mary'S [facility]02[facility]-2024 History and physical note * Isabelle Menon [...] mouth once daily. 09/05/2023 at 1000 Yes hoafzv-xstfimqf-mrauqsa (CREON) 24,000-76,000 -120,000 unit delayed release capsule [...] 2023 TIME: 12:20 PM documented in this encounterSt. Mary'[facility]11-26-2023 Miscellaneous Notes* Telephone Encounter - Isabelle Menon [...] in one of her images report from [facility]. I will recommend CT-angiography to r/o gut [...] RN - 06/11/2023 12:[address] Menon, please see msg below and advise. Are you ordering an EUS? Thank you, Gisela Ponce RN documented in this encounterSt. Mary'[facility]11-[facility]-2023 History and physical note * Isabelle Menon [...] her mother who works as in at [employer]. The problem started when she was age [...] an issue, start amitriptyline. Consider referral to [facility] if symptoms fail to improve. 1. Chronic [...] divisum. 12/01/22 HIDA scan was done at [facility]: Normal study EF 69% US: 10/31/22: [...] with 350 mL of normal saline. 08/02/22 [facility] Gastroenterology Chioma Alonzo is a 21 [...] Abs Lymph 1.00 - 4.00 k/uL 2.17 [place]% % 8.1 Abs [place] <0.87 k/uL 0.36 Eosin% % 5.6 Abs [...] Isabelle Menon MD, FACP documented in this encounterSt. Mary'[facility]11-10-2023 Evaluation note* Encounter Date Diagnosis Assessment Notes Treatment Notes Treatment Clinical Notes May, Vitamin D insufficiency (ICD-10 - E55.9) [facility] Other 11-02-2023 Evaluation note* Encounter Date Diagnosis Assessment Notes Treatment Notes Treatment Clinical Notes May, Well adult exam (ICD-10 - Z00.00 ) Routine lab work ordered. She will follow up with eye doctor due to some floaters that she is having. Follow routinely with dentist and REGISTERED RADIATION THERAPIST. Specialty notes reviewed as received. Patient is advised to work on healthy diet choices and appropriate servings, weight control, regular exercise as directed, reduced fat intake, and salt avoidance. Patient voiced understanding of this and agrees to this plan. May,Other chronic pancreatitis (ICD-10 - K86.1) She is following with Dr. Butler and Dr. Menon for this at the . She will continue to do so. Specialty notes reviewed as received. May,Irritable bowel syndrome with diarrhea (ICD-10 - K58.0) She is following with Dr. Butler and Dr. Menon for this at the . She will continue to do so. Specialty notes reviewed as received. May,AD (generalized anxiety disorder) (ICD-10 - F41.1) No suicidal or homicidal ideations. Stable with Lexapro 10 mg daily. Will continue this. [facility] Other 10-31-2023 Instructions* Patient Instructions* Dara Butler Jr., DO - 05/22/2023 11:39 AM EDT Start amitriptyline Keep appt with Dr. Menon for pancreatic / biliary clinic documented in this encounterSt. Mary'[facility] History of Present illness Narrative* Dara Butler [...] last colonoscopy was 8 months ago in [place]. Past GI workup 05/08/23 ER visit notes [...] EDT Office Visit [facility] [address] [place] [address] Kyree Stinson MD Abnormal flushing and sweating (Primary Dx); [...] per patient. She sees a specialist to [facility] doctor Butler for GI- currently awaiting [...] dicyclomine 12/01/22 HIDA scan was done at [facility]: Normal study EF 69% US: 10/31/22: [...] with 350 mL of normal saline. 08/02/22 [facility] Gastroenterology Chioma Alonzo is a 21 [...] (PCR) (04/02/2023 10:00 AM EDT) Results - [facility] GI PANEL (PCR) (04/02/2023 10:00 AM [...] Abs Lymph 1.00 - 4.00 k/uL 2.17 [place]% % 8.1 Abs [place] <0.87 k/uL 0.36 Eosin% % 5.6 Abs [...] BY MOUTH THREE TIMES DAILY WITH MEALS aymqpe-luvjswmo-peumowy (ZENPEP) 40,000-126,000- 168,000 unit delayed release capsule [...] an issue, start amitriptyline. Consider referral to [facility] if symptoms fail to improve. 1. Chronic [...] studies Dara Butler Jr. documented in this encounterSt. Mary'[facility]10[facility]2023 Miscellaneous Notes* Telephone Encounter - Analia Estevez [...] Dara Butler Jr., DO documented in this encounterSt. Mary'[facility]09-[facility]-2023 Miscellaneous Notes* Telephone Encounter - Analia Estevez RN - 04/14/2023 9:23 AM EDT Patient has viewed results per [employer]. Analia Estevez RN * Telephone Encounter - Analia Estevez RN - 04/14/2023 9:23 AM EDT ----- Message from Dara Butler Jr., DO sent at 04/13/2023 4:04 PM EDT ----- MRI negative for pancreatitis and anatomic pancreatic abnormalities. Dara Butler Jr., DO documented in this encounterSt. Mary'S [facility]09-[facility]-2023 Miscellaneous Notes* Allied Health - Yessi Adkins, cuff presser - 04/13/2023 2:40 PM EDT Radiology Service [...] 2023 TIME: 3:13 PM documented in this encounterSt. Mary'S [facility]09-[facility]-2023 Progress note* [facility] - Yessi Adkins [...] DATE: April 13, 2023 TIME: 3:[address] [facility]09-08-2023 Miscellaneous Notes* Telephone Encounter - Analia Estevez RN - 03/30/2023 10:33 AM EDT Patient has viewed results per [employer]. Analia Estevez RN * Telephone Encounter - [...] CDIFF. She had this testing done through [facility]. She is working on getting faxed results to office. Pt states she feels fine, no symptoms but would like to follow up with nurse. Please advise Patient has been identified by name and birthdate. Duration of symptoms: N/A Person calling: self Call patient at: at home [phone] (home) [phone] (cell) Was an appointment scheduled: No Closing statement: Results or non-symptom based questions: Thank you for calling [facility], your call will be returned within the next business day. Eva Wynne documented in this encounterSt. Mary'S [facility]09-[facility]-2023 Evaluation note* Encounter Date Diagnosis Assessment Notes Treatment Notes Treatment Clinical Notes Mar, Diarrhea (ICD-10 - R19.7) [facility] Other 09-01-2023 Evaluation note* Encounter Date Diagnosis Assessment Notes Treatment Notes Treatment Clinical Notes Mar, C. difficile diarrhea (ICD-10 - A04.72) [facility] Other 09-01-2023 Miscellaneous Notes* Telephone Encounter - Bryson Arredondo MA - 03/23/2023 7:59 AM EDT Pt was notified via . * Telephone Encounter - Nae Ibarra MD - 03/22/2023 9:36 PM EDT Please Call patient if MyChart note not read to review results/released to My Chart if tests [facility]: Improved/Normal labs and no inflammation. Take [...] hepatitis panel, quantiferon tb; documented in this encounterSt. Mary'S [facility]08-30-2023 Miscellaneous Notes* Telephone Encounter - Analia Estevez RN - 03/21/2023 11:02 AM EDT Results were viewed by patient per [employer]. Analia Estevez RN * Telephone Encounter - Analia Estevez RN - 03/21/2023 11:00 AM EDT ----- Message from Dara Butler Jr., DO sent at 03/21/2023 7:46 AM EDT ----- Labs essentially unremarkable including negative celiac Dara Butler Jr., DO documented in this encounterSt. Mary'[facility]08-29-2023 Evaluation note* Encounter Date Diagnosis Assessment Notes Treatment Notes Treatment Clinical Notes Feb, Diarrhea (ICD-10 - R19.7) [facility] Other 08-25-2023 Miscellaneous Notes* Telephone Encounter - Analia Estevez RN - 03/16/2023 12:38 PM EDT Per our discussion please review and sign orders for MRI per out discussion based off mychart message per patient. Analia Estevez RN documented in this encounterSt. Mary'S [facility]07-18-2023 Instructions* Patient Instructions* Dara Butler Jr., DO - 02/06/2023 10:35 AM EDT Check labs Start Levbid Start Zenpep Stop dicyclomine documented in this encounterSt. Mary'S [facility]07-18-2023 History of Present illness Narrative* Dara Butler [...] visit: 09/11/22 (care everywhere): Dr. Rehan Lee Cindy is a 21 y.o. female with PMHx [...] REFLEX Dara Butler Jr. documented in this encounterSt. Mary'S [facility]06-[facility]-2023 Miscellaneous Notes* Telephone Encounter - Ana Eckert - 12/25/2022 10:22 AM EDT Spoke with patient Scheduled Consult to GI for first avail at [place] in January Did not schedule Med Gen Consult. Still pending review- patient said she will schedule when she sees Dr Luke Eckert December 25, 2022 10:27 AM * Telephone Encounter - Bryson Arredondo MA - 12/25/2022 9:22 AM EDT Pt has been notified via [employer] * Telephone Encounter - Nae Ibarra MD - 12/23/2022 12:53 AM EDT Please call patient. Thank you for the update and your kind words. Sorry to hear about your discomfort. Placed a consult to medical genetics and GI as requested. May schedule at your convenience. Hope you feel better soon! Warm regards, :) documented in [facility]* Encounter Date Diagnosis Assessment Notes Treatment Notes Treatment Clinical Notes November, Nausea (ICD-10 - R11.0) Advised pt to avoid smoking marijuana to see if that helps relieve symptoms. November,ancreatitis (ICD-10 - K85.90) November,bnormal abdominal CT scan (ICD-10 - R93.5) November,bdominal pain (ICD-10 - R10.9)Start dicyclomine 10mg tid November,Irritable bowel syndrome with diarrhea (ICD-10 - K58.0)Recommended Benefiber Follow up 2 months [facility] Other 01-01-2023 History general Narrative - Reported* Type Description Date Medical History Esophageal reflux Medical HistoryanxietySurgical Historywisdom teeth extractSurgical HistoryFMT 07/2022Hospitalization Historypancreatitis [facility] Other 10-06-2022 Evaluation note* Encounter Date Diagnosis Assessment Notes Treatment Notes Treatment Clinical Notes Apr, Irritable bowel syndrome with di arrhea (ICD-10 - K58.0) PATIENT DOES HAVE 3 BOWEL MOVEMENTS A DAY SOMETIMES 1 Apr,2RUQ pain (ICD-10 - R10.11) [facility] Other 08-24-2022 History of Present illness Narrative* Mckenzie Kincaid RN - 03/15/2022 3:30 PM EDT Patient verified full name and * Irena Diallo MD - 03/15/2022 3:30 PM EDT GI CLINIC PROGRESS NOTE PATIENT NAME: Chioma Henao ATTENDING: Irena Diallo MD : 2000 AGE: 21 y.o. GENDER: female LOCATION: GENERAL AND GASTROINTESTINAL SURGERY [facility]PAT[facility] [place] DATE OF VISIT: 03/15/2022 REFERRING MD: Jaya [...] diff infection, s/p treatment with fidaxomicin and MATERIALS BU[employer]ER. Symptoms persist, possible post infection IBS vs recurrent c. Diffinfection. Active marijuana user, smokes viper as well. DISPOSITION AND PLAN: 1. Will obtain c diff toxin Ag 2. Stool enteric panel 3. [place] [facility] [place] 4. Imodium prn (after infection is ruled out) 5. Marijuana and viper abstinence counseling provided. Face to face interaction: 25 Time to complete visit: 60 Irena Diallo MD Chief Vendor Quality Division of Gastroenterology, Hepatology and Nutrition Department of Internal Medicine [facility]* Patient Instructions* Irena Diallo MD - 03/15/2022 3:30 PM EDT C diff toxin Ag Enteric stool panel Dicyclomine Imodium prn if infection is ruled out [facility] Evaluation note * Encounter Date Diagnosis Assessment Notes Treatment Notes Treatment Clinical Notes Sep, C. difficile diarrhea (ICD-10 - A04.72) START DIFICID DIRECTED REFERRAL TO [facility] C.DIFF [facility] Other 11-30-2021 NoteChief Complaint consultation for nausea [...] Use:., 06/21/2021 Family History Cancer: Father. Stroke: Mother.[facility] SystemComment on above:Result Comment: Electronically Signed By: KALEB MACKEY, Ana Lan\Date and Time Signed: 06/21/21 20:44 [id number] Evaluation note* Encounter Date Diagnosis Assessment Notes Treatment Notes Treatment Clinical Notes Apr, Contact with and (valentino spected) exposure to other viral communicable diseases (ICD-10 [...] is performed too soon. It is recommended thateven if results are negative and you have been exposed to someone that has COVID that you follow current CDC recommendations. These can be found at CDC.GOV. Follow up with primary care provider if symptoms persist or do not improve Apr,Other Additional time spent conducting pre-visit phone call, screening for symptoms, instructions on social distancing, application and removal of PPE, and cleaning of examination room, equipment and supplies was preformed. Patient education given for testing methodology and results. Patient care instructions given in writting by [facility] Home document. [facility] Other 05-18-2021 NoteChief Complaint Consultation for Colonoscopy [...] Use:., 12/07/2020 Family History Cancer: Father. Stroke: Mother.[facility] SystemComment on above:Result Comment: Electronically Signed By: KALEB MACKEY, Ana Lan\Date and Time Signed: 12/07/20 17:18 [id number] Miscellaneous Notes* Result Encounter Note - Rickie Naqvi DO - 12/02/2020 10:00 AM EDT CTA head and neck are both normal. No abnormalities noted. [facility] noteNo [employer] CorporationNoal[facility] [employer] Other Evaluation note* Diagnosis Diarrhea, unspecified type- Primary [facility]* Diagnosis Generalized abdominal pain- Primary Abdominal pain, generalized documented [facility]* Diagnosis Chronic pancreatitis, unspecified pancreatitis type (HCC)- Primary Generalized abdominal pain Abdominal pain, generalized Intestinal malabsorption, unspecified type documented in this encounter [facility] note* Diagnosis Chronic recurrent pancreatitis (HCC)- Primary Chronic pancreatitis documented in this encounter [facility] note* Diagnosis Chronic pancreatitis, unspecified pancreatitis type (HCC)- Primary Generalized abdominal pain Abdominal pain, generalized Irritable bowel syndrome with diarrhea Irritable bowel syndrome History of Clostridioides difficile colitis documented in this encounter [facility] note* Diagnosis Family history of ischemic heart disease and other diseases of the circulatory system History of acute pancreatitis Personal history of other diseases of digestive system Carotid artery aneurysm (HCC) Aneurysm of artery of neck documented in this encounter [facility] noteNo assessment information [facility] Work Phone: Evaluation note* Diagnosis RUQ pain- Primary Abdominal pain, right upper quadrant History of pancreatitis Personal history of other diseases of digestive system Nausea Nausea alone Diarrhea, unspecified type History of Clostridium difficile infection Personal history of other infectious and parasitic disease documented in this encounter [facility] note* Diagnosis Generalized abdominal pain- Primary Abdominal pain, generalized RUQ pain Abdominal pain, right upper quadrant Chronic recurrent pancreatitis (HCC) Chronic pancreatitis Diarrhea, unspecified type documented in this encounter [facility] note* Diagnosis Chronic recurrent pancreatitis (HCC) Chronic pancreatitis [facility]* Diagnosis Palpitations- Primary Other supraventricular tachycardia (HCC) Cholecystitis Cholecystitis, unspecified [facility]* Diagnosis Pre-op examination- Primary Preoperative examination, unspecified Palpitations Organic anxiety syndrome Anxiety disorder in conditions classified elsewhere Cholecystitis Cholecystitis, unspecified documented [facility]* Diagnosis Onset Date Resolution Status Esophageal reflux acuteGAD (generalized anxiety disorder)acuteIrritable bowel syndrome with diarrheaacuteVitamin D insufficiencyacute [facility] Work Phone: Evaluation note* Diagnosis S/P gastrointestinal surgery, follow-up exam- Primary Follow-up examination, following other surgery S/P laparoscopic cholecystectomy Other postprocedural status documented in this [facility]* Diagnosis Generalized abdominal pain- Primary Abdominal pain, generalized History of acute pancreatitis Personal history of other diseases of digestive system documented [facility] this [facility]* Diagnosis Upper abdominal pain- Primary Abdominal pain, other specified site Dyspepsia and disorder of function of stomach Dyspepsia and other specified disorders of function of stomach Dyspepsia Dyspepsia and other specified disorders of function of stomach [facility]* Diagnosis Upper abdominal pain Abdominal pain, other specified site Dyspepsia and disorder of function of stomach Dyspepsia and other specified disorders of function of stomach Dyspepsia Dyspepsia and other specified disorders of function of stomach documented [facility] this [facility]* Diagnosis Upper abdominal pain Abdominal pain, other specified site Dyspepsia and disorder of function of stomach Dyspepsia and other specified disorders of function of stomach documented in this encounter [facility]* Diagnosis Epigastric pain- Primary Abdominal pain, epigastric documented in this encounter [facility]* Diagnosis Onset Date Resolution Status LOCO (generalized anxiety disorder) acute [facility] Work Phone: evaluation note* Diagnosis APPOINTMENT CANCELLED- Primary documented in this encounter [facility]* Diagnosis Chronic recurrent pancreatitis (HCC) Chronic pancreatitis [facility]* Diagnosis Diarrhea, unspecified type- Primary documented in [facility]* Diagnosis Right sided abdominal pain- Primary Abdominal pain, unspecified site Neuralgia and neuritis Neuralgia, neuritis, and radiculitis, unspecified Celiac artery compression syndrome (HCC) Celiac artery compression syndrome [facility]* Diagnosis Right sided abdominal pain- Primary Abdominal pain, unspecified site Celiac artery compression syndrome (HCC) Celiac artery compression syndrome Neuralgia and neuritis Neuralgia, neuritis, and radiculitis, unspecified Right sided abdominal pain Abdominal pain, unspecified site Celiac artery compression syndrome (HCC) Celiac artery compression syndrome Neuralgia and neuritis Neuralgia, neuritis, and radiculitis, unspecified [facility]* Diagnosis Neoplasm of unspecified behavior of bone, soft tissue, and skin- Primary [facility] Diagnosis Median arcuate ligament syndrome (CMS-HCC)- Primary Celiac artery compression syndrome documented in this [facility] Work Phone: Evaluation note* Diagnosis Epigastric pain- Primary Abdominal pain, epigastric Median arcuate ligament syndrome (CMS-HCC) Celiac artery compression syndrome Difficulty breathing Other dyspnea and respiratory abnormality documented in this encounter [facility] Work Phone: Evaluation note* Diagnosis Follow-up visit after miscarriage [facility]* Diagnosis Median arcuate ligament syndrome (CMS-HCC) Celiac artery compression syndrome documented in this encounter [facility] Work Phone: Evaluation note* Diagnosis Chronic [...] and radiculitis, unspecified documented [facility]* Diagnosis Generalized abdominal pain Abdominal pain, generalized Change in bowel habits Other symptoms involving digestive system [facility]* Diagnosis Status post laparoscopic appendectomy- Primary Other postprocedural status [facility] Diagnosis Onset Date Resolution Status Admit Date Diarrhea acuteApril 2024 9:52am [facility] Work Phone: Evaluation note* Diagnosis Encounter for infertility PCOS (polycystic ovarian syndrome) Polycystic ovaries Abnormal uterine bleeding (AUB) documented [facility]* Diagnosis 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 documented in this encounter [facility] Work Phone: History general Narrative - Reported* Type Description Date Medical History Esophageal reflux Medical HistoryanxietySurgical Historywisdom teeth extractHospitalization HistorypanAF83 Other Hismmry general Narrative - Reported* Type Description Date Medical History Esophageal reflux Medical HistoryANXIETYMedical HistoryPANCREATITISMedical HistoryC DIFFMedical HistoryCOLON INFLAMMATIONMedical History2 FECAL TRANSPLANTSMedical History ENDOMETRIOSISSurgical Historywisdom teeth extractSurgical HpxlbwvRRI46/2023 Surgical HistoryLAPROSOCOPY FOR ENDOMETRIOSISHospitalization Historyp[place] hospitalAF83 Other InstructionsNot on filedocumented in this encounter [facility] [employer] SystemInstructionsNot on filedocumented in this encounter [facility] SystemReason for referral (narrative)* Diagnostic Procedure Only (Routine) - ClosedSpecialtyDiagnoses / ProceduresReferred By Contact Referred To ContactCT IMAGING Diagnoses Carotid artery aneurysm (HCC) History of acute pancreatitis Procedures CTA NECK W IVCON CTA NECK, W/WO C, W/3D Rickie Naqvi DO [address] [place] [address] [address] [facility] [place] [address] Referral IDStatusReasonStart DateExpiration DateVisits RequestedVisits [id number] Auto-Generated Referral / * Diagnostic Procedure Only (Routine) - ClosedSpecialtyDiagnoses / Procedures Referred By ContactReferred To ContactCT IMAGING Diagnoses Family history of ischemic heart disease and other diseases of the circulatory system History of acute pancreatitis Procedures CTA HEAD WO/W IVCON CTA HEAD WWO C, W/3D Rickie Naqvi DO [address] [place] [address] [place] [address] Referral IDStatusReasonStart DateExpiration DateVisits RequestedVisits [id number] Auto-Generated Referral / [facility] for referral (narrative)* Outpatient Procedure (Routine) - ClosedSpecialtyDiagnoses / ProceduresReferred By ContactReferred To Contact [facility] Diagnoses Chronic recurrent pancreatitis (HCC) Procedures EGD - THERAPEUTIC, EUS, OR TUBE INTERVENTIONS EDG US EXAM SURGICAL ALTER STOM DUODENUM/[place] [address] [place] [address] [facility] Disease [place] [id number] Referral IDStatusReasonStsabin DateExpiration DateVisits RequestedVisits [id number] Auto-Generated Referral [facility] for referral (narrative)* Outpatient Procedure (Routine) - AuthorizedSpecialtyDiagnoses / ProceduresReferred By ContactReferred To ContactOHIO STATE [facility]AST [facility]OS[facility]ITALRT [facility] Diagnoses Other supraventricular tachycardia (HCC) Palpitations Procedures ECHO ECHO TTHRC R-T 2D W/WOM-MODE COMPL SPEC&[place] [address] [place] [address] [facility] [place] [address] [place] [address] Referral IDStatusReasonStsabin DateExpiration DateVisits RequestedVisits [id number] Auto-Generated Referral / [facility] for referral (narrative)* Diagnostic Procedure Only (Routine) - AuthorizedSpecialtyDiagnoses / ProceduresReferred By Contact Referred To ContactMOLECULAR & FUNCTIONAL IMAGING Diagnoses Upper abdominal pain Dyspepsia and disorder of function of stomach Dyspepsia Procedures NM GASTRIC EMPTYING SOLID GASTRIC EMPTYING STUDY Dara Butler Jr., DO [address] [place] [address] Molecular & Functional Imaging [address] [place] [address] Referral IDStatusReasonStart DateExpiration DateVisits RequestedVisits [id number] Auto-Generated Referral * Diagnostic Procedure Only (Routine) - Pending ReviewSpecialtyDiagnoses / ProceduresReferred By ContactReferred To ContactXR IMAGING Diagnoses Upper abdominal pain Dyspepsia and disorder of function of stomach Procedures XR UPPER GI SINGLE CONTRAST RADIOLOGIC EXAM UPR GI TRC SINGLE CONTRAST STUDY Dara Butler Jr., DO [address] [place] [address] [facility] [place] [address] Referral IDStatusReasonStsabin DateExpiration DateVisits RequestedVisits [id number] Auto-Generated Referral [facility] for referral (narrative)* Diagnostic Procedure Only (Routine) - ClosedSpecialtyDiagnoses / ProceduresReferred By ContactReferred To ContactMOLECULAR & FUNCTIONAL IMAGING Diagnoses Upper abdominal pain Dyspepsia and disorder of function of stomach Dyspepsia Procedures NM GASTRIC EMPTYING SOLID GASTRIC EMPTYING STUDY Dara Butler Jr., DO [address] [place] [address] Molecular & Functional Imaging [address] [place], [place] [id number] Referral IDStatusReasonStart DateExpiration DateVisits RequestedVisits [id number] Auto-Generated Referral [facility] for referral (narrative)* Diagnostic Procedure Only (Routine) - ClosedSpecialtyDiagnoses / ProceduresReferred By ContactReferred To ContactXR IMAGING Diagnoses Upper abdominal pain Dyspepsia and disorder of function of stomach Procedures XR UPPER GI SINGLE CONTRAST RADIOLOGIC EXAM UPR GI TRC SINGLE CONTRAST STUDY Dara Butler Jr., DO [address] [place] [address] [place] [address] Referral IDStatusReasonPle[place] DateExpiration DateVisits RequestedVisits [id number] Auto-Generated Referral / [facility] for referral (narrative)* Consultation (Routine) - AuthorizedSpecialtyDiagnoses / ProceduresReferred By ContactReferred To ContactPain Medicine Diagnoses Median arcuate ligament syndrome (CMS-[place]) [place] [address] [address] [place] [address] Paula Pretty MD [address] [place] [address] [place] [address] Referral IDStatusReasonStsabin DateExpiration DateVisits RequestedVisits [id number] Specialty Services Required * Consultation (Routine) - AuthorizedSpecialtyDiagnoses / ProceduresReferred By ContactReferred To ContactGeneral Surgery Diagnoses Median arcuate ligament syndrome (CMS-[place]) [place] [address] [place] [address] Whitney Ambriz MD MPH [address] [facility] [place], [place] [address] [place] [address] Referral IDStatusReasonStart DateExpiration DateVisits RequestedVisits [id number] Specialty Services Required / [facility] Work Phone: Retugg for visit Narrative* Diagnostic Procedure Only (Routine) - ClosedSpecialtyDiagnoses / ProceduresReferred By ContactReferred To ContactCT IMAGING Diagnoses Carotid artery aneurysm (HCC) History of acute pancreatitis Procedures CTA NECK W IVCON CTA NECK, W/WO C, W/3D Rickie Naqvi DO [address] [place] [address] [address] [facility] Referral IDStatusReasonStsabin DateExpiration DateVisits RequestedVisits [id number] Auto-Generated Referral / [facility] for visit Narrative* Outpatient Procedure (Routine) - ClosedSpecialtyDiagnoses / ProceduresReferred By ContactReferred To Contact [facility] Diagnoses Chronic recurrent pancreatitis (HCC) Procedures EGD - THERAPEUTIC, EUS, OR TUBE INTERVENTIONS EDG US EXAM SURGICAL ALTER STOM DUODENUM/[place] [address] [place] [address] [facility] [place] [address] [place] [address] Referral IDStatusReasonStart DateExpiration DateVisits RequestedVisits [id number] Auto-Generated Referral / [facility] for visit Narrative* Diagnostic Procedure Only (Routine) - ClosedSpecialtyDiagnoses / ProceduresReferred By ContactReferred To Contact MOLECULAR & FUNCTIONAL IMAGING Diagnoses Upper abdominal pain Dyspepsia and disorder of function of stomach Dyspepsia Procedures NM GASTRIC EMPTYING SOLID GASTRIC EMPTYING STUDY Dara Butler Jr., DO [address] [place] [address] Molecular [facility] Functional Imaging [address] [place] [address] Referral IDStatusReasonStart DateExpiration DateVisits RequestedVisits [id number] Auto-Generated Referral / [facility] for visit Narrative* Diagnostic Procedure Only (Routine) - ClosedSpecialtyDiagnoses / ProceduresReferred By ContactReferred To Contact XR IMAGING Diagnoses Upper abdominal pain Dyspepsia and disorder of function of stomach Procedures XR UPPER GI SINGLE CONTRAST RADIOLOGIC EXAM UPR GI TRC SINGLE CONTRAST STUDY Dara Butler Jr., DO [address] [place] [address] [place] [address] Referral IDStatusReasonStsabin DateExpiration DateVisits RequestedVisits [id number] Auto-Generated Referral / [facility] for visit Narrative* Consultation (Routine) - Authorized SpecialtyDiagnoses / ProceduresReferred By ContactReferred To ContactGeneral Surgery Diagnoses Median arcuate ligament syndrome (CMS-[place]) [place] [address] [address] Whitney Ambriz MD MPH [address] [facility] [place], [place] [address] [place] [address] Referral IDStatusReasonStsabin DateExpiration DateVisits RequestedVisits [id number] Specialty Services Required / [facility] Work Phone: [facility] for visit Narrative* Outpatient Procedure (Routine) - ClosedSpecialtyDiagnoses / ProceduresReferred By ContactReferred To ContactDIGESTIVE DISEASE INSTITUTE Diagnoses Generalized abdominal pain Change in bowel habits Procedures COLONOSCOPY DIAGNOSTIC COLONOSCOPY FLX DX W/COLLJ SPEC WHEN PFDara Hagan Jr., DO [address] [place] [address] Phone: tel: fax: [facility] [address] [place] [address] Referral IDStatusRe[facility] DateExpiration DateVisits RequestedVisits [id number] Auto-Generated Referral [facility] for visit Narrative* Endoscopy (Routine) - Authorized SpecialtyDiagnoses / ProceduresReferred By ContactReferred To Contact Gastroenterology Diagnoses Median arcuate ligament syndrome Procedures Esophagogastroduodenoscopy (EGD) GA ESOPHAGOGASTRODUODENOSCOPY TRANSORAL DIAGNOSTIC GA EGD TRANSORAL BIOPSY SINGLE/MULTIPLE Whitney Ambriz MD MPH [address] [place] [address] Phone: tel: fax: Referral IDStatusReasonStsabin DateExpiration DateVisits RequestedVisits [id number]/15/20248/15/202511 [facility] Work Phone: Summary Purpose Family History Relationship Condition Age at Onset Recorded Date/T jael father Hypertension Unknown Not SpecifiedHistory of strokeUnknown Relationship Condition Age at Onset Recorded Date/T jael father Hypertension Unknown motherHistory of strokeUnknown Advance Directives Advance Directive Response Recorded Date/ Time Advance Directives No August 26, 2019 7:34am Advance Directive Response Recorded Date/ Time Advance Directives No August 26, 2019 8:34am Reason for Referral SpecialtyDiagnoses / ProceduresReferred By ContactReferred To Contact Gastroenterology Diagnoses Median arcuate ligament syndrome (CMS-HCC) Procedures Esophagogastroduodenoscopy (EGD) GA ESOPHAGOGASTRODUODENOSCOPY TRANSORAL DIAGNOSTIC GA EGD TRANSORAL BIOPSY SINGLE/MULTIPLE Whitney Ambriz MD MPH [address] [place] [place] [address] Referral IDStatusReasonStart DateExpiration DateVisits RequestedVisits [id number] / Procedures Referred By ContactReferred To ContactCT IMAGING Diagnoses Generalized abdominal pain RUQ pain Chronic recurrent pancreatitis (HCC) Diarrhea, unspecified type Procedures CTA ABD/PEL W IVCON CT ANGIO ABD&PLVIS CNTRST MTRL W/[place] [address] [place] [address] [place] [address] Referral IDStatusReasonStart DateExpiration DateVisits RequestedVisits [id number] Auto-Generated Referral [id number] / ProceduresReferred By ContactReferred To ContactMR IMAGING Diagnoses Chronic recurrent pancreatitis (HCC) Procedures MRI ABDOMEN WO/W IVCON MRI ABDOMEN W/O & W/CONTRAST MATERIAL Dara Butler Jr., DO [address] [facility] [place] [address] [place] [address] Referral IDStatusReasonPleasant [place] DateExpiration DateVisits RequestedVisits [id number] Auto-Generated Referral /[id number] / ProceduresReferred By ContactReferred To ContactGastroenterology Diagnoses Generalized abdominal pain Procedures CONSULT TO GASTROENTEROLOGY OFFICE/OUTPATIENT [facility] 60-74 MINUTES Nae Ibarra MD [address] [place] [address] Referral IDStatusReasonStart DateExpiration DateVisits RequestedVisits [id number] PCP Requested Referral /[id number] / ProceduresReferred By ContactReferred To Contact Diagnoses Generalized abdominal pain Procedures CONSULT TO MEDICAL GENETICS - GENERAL OFFICE/OUTPATIENT [facility] 60-74 MINUTES MEDICAL GENETICS COUNSELING EACH 30 MINUTES Nae Ibarra MD [address] [place] [address] [employer] [facility] [address] [place] [address] Referral IDStatusReasonStart DateExpiration DateVisits RequestedVisits [id number] Review PCP Requested Referral Auto-Generated Referral / Reason Please schedule cons ult to evaluate and treat at [facility] (in [place]) for recurrent c.diff infection. (for possible fecal [...] insufficiency Chief Complaint 6 month follow up UnknownReason for VisitEsophageal reflux LOCO (generalized anxiety disorder) Irritable bowel syndrome with diarrhea Vitamin D insufficiency Chief Complaint Unknown Est patient/wellnessReason for VisitGAD (generalized anxiety disorder) Chief Complaint Admit Date Amb Documentation [...] lower back pain Ap ril 2024 11:20am Chief Complaint Admit Date UA, urgency, burning, lower back pain Ap ril 2024 11:20am Amb Documentation November 05, 2024 10: 32am [facility] ER; vomiting/diarrhea November 12 9:52am Reason for Visit Admit Date Diarrhea November 12, 2024 9:5 2am Additional Source Comments INFORMATION SOURCE (unrecogn ized section and content) DATE CREATED AUTHOR 09/15/2021 [facility] DATE CREATED AUTHOR AUTHOR'S ORGANIZ ATION 02/16/2022 [facility] DATE CREATED AUTHOR AUTHOR'S ORGANIZ ATION 03/18/2022 [facility] DATE CREATED AUTHOR AUTHOR'S ORGANIZ ATION 12/04/2022 [facility] DATE CREATED AUTHOR AUTHOR'S ORGANIZ ATION 04/26/2023 [facility] DATE CREATED AUTHOR AUTHOR'S ORGANIZ ATION 02/13/[address] [facility] DATE CREATED AUTHOR AUTHOR'S ORGANIZ ATION 07/17/2024 [facility] DATE CREATED AUTHOR AUTHOR'S ORGANIZ ATION 08/01/2024 [facility] DATE CREATED AUTHOR AUTHOR'S ORGANIZ ATION 08/06/2024 [facility] DATE CREATED AUTHOR AUTHOR'S ORGANIZ ATION 09/07/2024 [facility] DATE CREATED AUTHOR AUTHOR'S ORGANIZ ATION 03/25/2025 [facility] EPIC REASON FOR VISIT (unrecogniz ed section and content) ReasonCommentsNew PatientSpecialtyDiagnoses / ProceduresReferred By Contact Referred To ContactGastroenterology Diagnoses C. difficile diarrhea Jaya Parikh MD [address] [place] [address] Referral IDStatusReasonStart DateExpiration DateVisits RequestedVisits [id number] Review/[id number] Pain SpecialtyDiagnoses / ProceduresReferred By ContactReferred To Contact Gastroenterology Diagnoses Generalized abdominal pain Procedures CONSULT TO GASTROENTEROLOGY OFFICE/OUTPATIENT [facility] 60-74 MINUTES Nae Ibarra MD [address] [place] [address] Referral IDStatusReasonStart DateExpiration DateVisits RequestedVisits [id number] PCP Requested Referral /[id number]sdpMkpbaxwrGKUF REMINDERAPPT REMINDER CALL, LEFT MESSAGE REGARDING DIRECTIONS TO OFFICE AND # IN NEED TO CANCELReason CommentsFollow UpReasonCommentsRecheckReasonCommentsScansReasonCommentsPatient UpdateReasonCommentsConsultSpecialtyDiagnoses / ProceduresReferred By Contact Referred To ContactCardiology Diagnoses Other supraventricular tachycardia (HCC) Procedures CONSULT TO CARDIOLOGY OFFICE/OUTPATIENT [facility] 60 [place] [address] [place] [id number] Referral IDStatusReasonStart DateExpiration DateVisits RequestedVisits [id number] PCP Requested Referral /[id number] ClearanceReasonCommentsPalpitationsED pt updateReasonCommentsPatient QuestionPVCs and Frequent ED visits.Reason CommentsAnesthesia ConsultCholecystitisReasonCommentsPre-Op ExamReasonComments Post Op Follow Up11/21/23 lap choleReasonOnset DateCommentsRefill Request 4ReasonCommentsRadiology NMReasonCommentsConsultReasonCommentsBack Pain SpecialtyDiagnoses / ProceduresReferred By ContactReferred To ContactMR IMAGING Diagnoses Chronic recurrent pancreatitis (HCC) Procedures MRI ABDOMEN WO/W IVCON MRI ABDOMEN W/O & W/CONTRAST MATERIAL Dara Butler Jr., DO [address] [place] [id number] [id number] Referral IDStatusReasonStsabin DateExpiration DateVisits RequestedVisits [id number] Auto-Generated Referral /[id number]yDn need for OV with Dr. De La Paz CommentsSchedule InjectionReasonCommentsAppointmentReasonCommentsSuspicious Skin LesionReasonCommentsNew Patient VisitC/o of stomach pain, nausea and diarrhea since age 15. Is able to eat a full meal.ReasonCommentsfollow up miscarriage SpecialtyDiagnoses / ProceduresReferred By ContactReferred To Contact Gastroenterology Diagnoses Median arcuate ligament syndrome (CMS-HCC) Procedures Esophagogastroduodenoscopy (EGD) GA ESOPHAGOGASTRODUODENOSCOPY TRANSORAL DIAGNOSTIC GA EGD TRANSORAL BIOPSY SINGLE/MULTIPLE Whitney Ambriz MD [facility] [address] [place] [address] Referral IDStatusReasonStart DateExpiration DateVisits RequestedVisits [id number]/15/[id number]/15/[id number] UpFollow-up on everything.ReasonCommentsPost-opPost op laparoscopic [facility] present today to discuss fertility Source Comments (unrecognize d section and content) In the event this informatio n is protected by the Federal Confidentiality of Alcohol and Drug Abuse Patient Records regulations: The Federal rules restrict any use of the information to criminally investigate or prosecute any alcohol or drug abuse patient.[facility] CampusIn the event this information is protected by the Federal Confidentiality of Alcohol and Drug Abuse Patient Records regulations: The Federal rules restrict any use of the information to criminally investigate or prosecute any alcohol or drug abuse patient.[facility] CampusIn the event this information is protected by the Federal Confidentiality of Alcohol and Drug Abuse Patient Records regulations: The Federal rules restrict any use of the information to criminally investigate or prosecute any alcohol or drug abuse patient.[facility] CampusIn the event this information is protected by the Federal Confidentiality of Alcohol and Drug Abuse Patient Records regulations: The Federal rules restrict any use of the information to criminally investigate or prosecute any alcohol or drug abuse patient.[facility] CampusIn the event this information is protected by the Federal Confidentiality of Alcohol and Drug Abuse Patient Records regulations: The Federal rules restrict any use of the information to criminally investigate or prosecute any alcohol or drug abuse patient.[facility] CampusIn the event this information is protected by the Federal Confidentiality of Alcohol and Drug Abuse Patient Records regulations: The Federal rules restrict any use of the information to criminally investigate or prosecute any alcohol or drug abuse patient.[facility] CampusIn the event this information is protected by the Federal Confidentiality of Alcohol and Drug Abuse Patient Records regulations: The Federal rules restrict any use of the information to criminally investigate or prosecute any alcohol or drug abuse patient.[facility] CampusIn the event this information is protected by the Federal Confidentiality of Alcohol and Drug Abuse Patient Records regulations: The Federal rules restrict any use of the information to criminally investigate or prosecute any alcohol or drug abuse patient.[facility] CampusIn the event this information is protected by the Federal Confidentiality of Alcohol and Drug Abuse Patient Records regulations: The Federal rules restrict any use of the information to criminally investigate or prosecute any alcohol or drug abuse patient.[facility] CampusIn the event this information is protected by the Federal Confidentiality of Alcohol and Drug Abuse Patient Records regulations: The Federal rules restrict any use of the information to criminally investigate or prosecute any alcohol or drug abuse patient.[facility] CampusIn the event this information is protected by the Federal Confidentiality of Alcohol and Drug Abuse Patient Records regulations: The Federal rules restrict any use of the information to criminally investigate or prosecute any alcohol or drug abuse patient.[facility] CampusIn the event this information is protected by the Federal Confidentiality of Alcohol and Drug Abuse Patient Records regulations: The Federal rules restrict any use of the information to criminally investigate or prosecute any alcohol or drug abuse patient.[facility] CampusIn the event this information is protected by the Federal Confidentiality of Alcohol and Drug Abuse Patient Records regulations: The Federal rules restrict any use of the information to criminally investigate or prosecute any alcohol or drug abuse patient.[facility] CampusIn the event this information is protected by the Federal Confidentiality of Alcohol and Drug Abuse Patient Records regulations: The Federal rules restrict any use of the information to criminally investigate or prosecute any alcohol or drug abuse patient.[facility] CampusIn the event this information is protected by the Federal Confidentiality of Alcohol and Drug Abuse Patient Records regulations: The Federal rules restrict any use of the information to criminally investigate or prosecute any alcohol or drug abuse patient.[facility] CampusIn the event this information is protected by the Federal Confidentiality of Alcohol and Drug Abuse Patient Records regulations: The Federal rules restrict any use of the information to criminally investigate or prosecute any alcohol or drug abuse patient.[facility] CampusIn the event this information is protected by the Federal Confidentiality of Alcohol and Drug Abuse Patient Records regulations: The Federal rules restrict any use of the information to criminally investigate or prosecute any alcohol or drug abuse patient.[facility] CampusIn the event this information is protected by the Federal Confidentiality of Alcohol and Drug Abuse Patient Records regulations: The Federal rules restrict any use of the information to criminally investigate or prosecute any alcohol or drug abuse patient.[facility] CampusIn the event this information is protected by the Federal Confidentiality of Alcohol and Drug Abuse Patient Records regulations: The Federal rules restrict any use of the information to criminally investigate or prosecute any alcohol or drug abuse patient.[facility] CampusIn the event this information is protected by the Federal Confidentiality of Alcohol and Drug Abuse Patient Records regulations: The Federal rules restrict any use of the information to criminally investigate or prosecute any alcohol or drug abuse patient.[facility] CampusIn the event this information is protected by the Federal Confidentiality of Alcohol and Drug Abuse Patient Records regulations: The Federal rules restrict any use of the information to criminally investigate or prosecute any alcohol or drug abuse patient.[facility] CampusIn the event this information is protected by the Federal Confidentiality of Alcohol and Drug Abuse Patient Records regulations: The Federal rules restrict any use of the information to criminally investigate or prosecute any alcohol or drug abuse patient.[facility] CampusIn the event this information is protected by the Federal Confidentiality of Alcohol and Drug Abuse Patient Records regulations: The Federal rules restrict any use of the information to criminally investigate or prosecute any alcohol or drug abuse patient.[facility] CampusIn the event this information is protected by the Federal Confidentiality of Alcohol and Drug Abuse Patient Records regulations: The Federal rules restrict any use of the information to criminally investigate or prosecute any alcohol or drug abuse patient.[facility] CampusIn the event this information is protected by the Federal Confidentiality of Alcohol and Drug Abuse Patient Records regulations: The Federal rules restrict any use of the information to criminally investigate or prosecute any alcohol or drug abuse patient.[facility] CampusIn the event this information is protected by the Federal Confidentiality of Alcohol and Drug Abuse Patient Records regulations: The Federal rules restrict any use of the information to criminally investigate or prosecute any alcohol or drug abuse patient.[facility] CampusIn the event this information is protected by the Federal Confidentiality of Alcohol and Drug Abuse Patient Records regulations: The Federal rules restrict any use of the information to criminally investigate or prosecute any alcohol or drug abuse patient.[facility] CampusIn the event this information is protected by the Federal Confidentiality of Alcohol and Drug Abuse Patient Records regulations: The Federal rules restrict any use of the information to criminally investigate or prosecute any alcohol or drug abuse patient.[facility] CampusIn the event this information is protected by the Federal Confidentiality of Alcohol and Drug Abuse Patient Records regulations: The Federal rules restrict any use of the information to criminally investigate or prosecute any alcohol or drug abuse patient.[facility] CampusIn the event this information is protected by the Federal Confidentiality of Alcohol and Drug Abuse Patient Records regulations: The Federal rules restrict any use of the information to criminally investigate or prosecute any alcohol or drug abuse patient.[facility] CampusIn the event this information is protected by the Federal Confidentiality of Alcohol and Drug Abuse Patient Records regulations: The Federal rules restrict any use of the information to criminally investigate or prosecute any alcohol or drug abuse patient.[facility] CampusIn the event this information is protected by the Federal Confidentiality of Alcohol and Drug Abuse Patient Records regulations: The Federal rules restrict any use of the information to criminally investigate or prosecute any alcohol or drug abuse patient.[facility] CampusIn the event this information is protected by the Federal Confidentiality of Alcohol and Drug Abuse Patient Records regulations: The Federal rules restrict any use of the information to criminally investigate or prosecute any alcohol or drug abuse patient.[facility] CampusIn the event this information is protected by the Federal Confidentiality of Alcohol and Drug Abuse Patient Records regulations: The Federal rules restrict any use of the information to criminally investigate or prosecute any alcohol or drug abuse patient.[facility] CampusIn the event this information is protected by the Federal Confidentiality of Alcohol and Drug Abuse Patient Records regulations: The Federal rules restrict any use of the information to criminally investigate or prosecute any alcohol or drug abuse patient.[facility] CampusIn the event this information is protected by the Federal Confidentiality of Alcohol and Drug Abuse Patient Records regulations: The Federal rules restrict any use of the information to criminally investigate or prosecute any alcohol or drug abuse patient.[facility] CampusIn the event this information is protected by the Federal Confidentiality of Alcohol and Drug Abuse Patient Records regulations: The Federal rules restrict any use of the information to criminally investigate or prosecute any alcohol or drug abuse patient.[facility] [place] CampusIn the event this information is protected by the Federal Confidentiality of Alcohol and Drug Abuse Patient Records regulations: The Federal rules restrict any use of the information to criminally investigate or prosecute any alcohol or drug abuse patient.[facility] CampusIn the event this information is protected by the Federal Confidentiality of Alcohol and Drug Abuse Patient Records regulations: The Federal rules restrict any use of the information to criminally investigate or prosecute any alcohol or drug abuse patient.[facility] CampusIn the event this information is protected by the Federal Confidentiality of Alcohol and Drug Abuse Patient Records regulations: The Federal rules restrict any use of the information to criminally investigate or prosecute any alcohol or drug abuse patient.[facility] CampusIn the event this information is protected by the Federal Confidentiality of Alcohol and Drug Abuse Patient Records regulations: The Federal rules restrict any use of the information to criminally investigate or prosecute any alcohol or drug abuse patient.[facility] CampusIn the event this information is protected by the Federal Confidentiality of Alcohol and Drug Abuse Patient Records regulations: The Federal rules restrict any use of the information to criminally investigate or prosecute any alcohol or drug abuse patient.[facility] the event this information is protected by the Federal Confidentiality of Alcohol and Drug Abuse Patient Records regulations: The Federal rules restrict any use of the information to criminally investigate or prosecute any alcohol or drug abuse patient.[facility] CampusIn the event this information is protected by the Federal Confidentiality of Alcohol and Drug Abuse Patient Records regulations: The Federal rules restrict any use of the information to criminally investigate or prosecute any alcohol or drug abuse patient.[facility] CampusIn the event this information is protected by the Federal Confidentiality of Alcohol and Drug Abuse Patient Records regulations: The Federal rules restrict any use of the information to criminally investigate or prosecute any alcohol or drug abuse patient.[facility]In the event this information is protected by the Federal Confidentiality of Alcohol and Drug Abuse Patient Records regulations: The Federal rules restrict any use of the information to criminally investigate or prosecute any alcohol or drug abuse patient.[facility] CampusIn the event this information is protected by the Federal Confidentiality of Alcohol and Drug Abuse Patient Records regulations: The Federal rules restrict any use of the information to criminally investigate or prosecute any alcohol or drug abuse patient.[facility] Care Teams (unrecognized sec tion and content) Team Status: Active Member Role Status Dates Analia Holliday DNP Primary Care Provider Active Team Status: Active Member Role Status Dates Analia Holliday DNP Primary Care Provider Active Start: November 15, 2023 Compa Foley ProviderActiveStart: November 15, 2023 Team Status: Inactive Member Role Status Dates Analia Holliday DNP Primary Care Provid er, Attending Provider Active Start: November 29, 2023 End: November 29, 2023Team MemberRelationshipSpecialtyStart DateEnd Date Gabino Owen MD PCP - GeneralFamily Medicine11/10/20Team MemberRelationshipSpecialtyStart DateEnd Date Gabino Owen MD PCP - GeneralFamily Medicine11/10/20Team MemberRelationshipSpecialtyStart DateEnd Date Gabino Owen MD PCP - GeneralFamily Medicine11/10/20Team MemberRelationshipSpecialtyStart DateEnd Date Gabino Owen MD PCP - GeneralFamily Medicine11/10/20Team MemberRelationshipSpecialtyStart DateEnd Date Gabino Owen MD PCP - GeneralFamily Medicine11/10/20Team MemberRelationshipSpecialtyStart DateEnd Date Gabino Owen MD PCP - [facility] Medicine11/10/20Team MemberRelationshipSpecialtyStart DateEnd Date Gabino Owen MD PCP - [facility] Medicine11/10/20Team MemberRelationshipSpecialtyStart DateEnd Date Gabino Owen MD PCP - [facility] Medicine11/10/20 Team Status: Inactive Member Role Status Dates Analia Holliday , DAVID Primary Care Provider, Attending Provider Active Team MemberRelationshipSpecialtyStart DateEnd Date Analia Holliday, CONCRETE SCULPTOR [address] [place] [phone] [facility] - [facility] Wftyyybf56/15/23Team MemberRelationshipSpecialtyStart Date End Date Analia Holliday, CONCRETE SCULPTOR [address] [facility] [place] [phone] PCP - [facility] Scqpvrrg31/15/23Team MemberRelationshipSpecialtyStart Date End Date Analia Holliday, CONCRETE SCULPTOR [address] [place] [address] PCP - Generalmily Dfshcath63/15/23Team MemberRelationshipSpecialtyStart Date End Date Analia Holliday, CONCRETE SCULPTOR [address] [place] [phone] [facility] - [facility] Ihoyfdcc32/15/23Team MemberRelationshipSpecialtyStart Date End Date Analia Holliday, CONCRETE SCULPTOR [address] [place] [phone] PCP - [facility]06/06/23Team MemberRelationshipSpecialtyStart Date End Date Analia Holliday, CONCRETE SCULPTOR [address] [place] [phone] PCP - [facility] Fbhahvzj46/15/23am MemberRelationshipSpecialtyStart Date End Date Analia Holliday, CONCRETE SCULPTOR [address] [place] [phone] PCP - [facility] Ngxcvnxs51/15/23am MemberRelationshipSpecialtyStart Date End Date Analia Holliday, CONCRETE SCULPTOR [address] [place] [phone] PCP - [facility] Zywftpnv95/15/23Team MemberRelationshipSpecialtyStart Date End Date Analia Holliday, CONCRETE SCULPTOR [address] [place] [phone] PCP - [facility] Lvodirtv25/15/23Team MemberRelationshipSpecialtyStart Date End Date Analia Holliday, CONCRETE SCULPTOR [address] [place] [phone] PCP - [facility]06/06/23Team MemberRelationshipSpecialtyStart Date End Date Analia Holliday, CONCRETE SCULPTOR [address] [place] [phone] PCP [facility]06/06/23Team MemberRelationshipSpecialtyStart Date End Date Analia Holliday, CONCRETE SCULPTOR [address] [place] [phone] [facility]06/06/23Team MemberRelationshipSpecialtyStart Date End Date Analia Holliday, CONCRETE SCULPTOR [address] [place] [phone] [facility]06/06/23 Team Status: Active Member Role Status Dates Analia Holliday DNP Primary Care Provider Active Start: December 27, 2023 Dara Butler DOAttending ProviderActiveStart: December 27, 2023 Team Status: Inactive Member Role Status Dates Ana Bolton DO Attending Provider Active Start: January 01, 2024 End: January 01, 2024Team MemberRelationshipSpecialtyStart DateEnd Date Analia Holliday, CONCRETE SCULPTOR [address] [place] [phone] [facility]06/06/23 Team Status: Active Member Role Status Dates Analia Dennis APRN MARKER DELIVERY-C Primary Care Provider Active Team Status: Inactive Member Role Status Dates Analia Dennis APRN MARKER DELIVERY-C Primary Care Provider, Attending Provider Active Start: March 19, 2024 End: March 19, 2024Team MemberRelationshipSpecialtyStart DateEnd Date Analia Holliday, CONCRETE SCULPTOR [address] [place] [phone] PCP - GeneralFamily Eufttyqx06/15/23Team MemberRelationshipSpecialtyStart Date End Date Gabino Owen MD PCP - GeneralFamily Medicine11/10/2110/Team MemberRelationshipSpecialtyStart DateEnd Date Analia Holliday, CONCRETE SCULPTOR [address] [place] [phone] PCP - GeneralFamily Zhozefyu85/15/23Team MemberRelationshipSpecialtyStart Date End Date Analia Holliday, CONCRETE SCULPTOR [address] [place] [phone] PCP - GeneralFamily Isjaqzzy07/15/23Team MemberRelationshipSpecialtyStart Date End Date Analia Holliday, CONCRETE SCULPTOR [address] [place] [phone] PCP - GeneralFamily Zoqviirz31/15/23Team MemberRelationshipSpecialtyStart Date End Date Analia Holliday, CONCRETE SCULPTOR [address] [place] [phone] PCP - GeneralFamily Nzfjdblu31/15/23Team MemberRelationshipSpecialtyStart Date End Date Jennifer Frazier MD [address] [place] [address] PCP - GeneralFamily Xfvxjqlm52/20/24Team MemberRelationshipSpecialtyStart Date End Date Kyree Stinson MD [address] [place] [phone] (Fax) PCP - GeneralFamily Medicine12/13/22 Kyree tSinson MD [address] [place] [address] (Fax) PCP - [facility]11/20/22Team MemberRelationshipSpecialtyStart DateEnd Date Kyree Stinson MD [address] [place] [address] (Fax) PCP - GeneralFamily Medicine12/13/22 Kyree Stinson MD [address] [place], [place] [address] [address] (Fax) PCP - [facility]11/20/22Team MemberRelationshipSpecialtyStart DateEnd Date Kyree Stinson MD [address] [place] [phone] (Fax) PCP - GeneralFamily Medicine12/13/22 Kyree Stinson MD [address] [place] [phone] (Fax) PCP - [facility]11/20/22Team MemberRelationshipSpecialtyStart DateEnd Date Jennifer Frazier MD [address] [place] [phone] PCP - GeneralFamily Klborguu05/20/24Team MemberRelationshipSpecialtyStart Date End Date Kyree Stinson MD [address] [place] [address] (Fax) PCP - GeneralFamily Medicine12/13/22 Kyree Stinson MD [address] [place] [address] (Fax) PCP - [facility]11/20/22Team MemberRelationshipSpecialtyStart DateEnd Date Kyree Stnison MD [address] [facility] [address] [place] [address] (Fax) PCP - GeneralVan [facility]est Medical Centerly Medicine12/13/22 Kyree Stinson MD [address] [facility] [address] [place] [address] (Fax) PCP - [facility]11/20/22Team MemberRelationshipSpecialtyStart DateEnd Date Jennifer Frazier MD [address] [place] [phone] PCP - [facility] Kklsjisf38/20/24Team MemberRelationshipSpecialtyStart Date End Date Jennifer Frazier MD [address] [facility] [place] [phone] PCP - [facility]06/11/24 Team Status: Active Member Role Status Dates Analia Dennis APRN MARKER DELIVERY-Paola Attending Provider Act carolina Start: June 25, 2024 Wes Grey Care ProviderActiveStart: June 25, 2024 Team Status: Active Member Role Status Dates Hayley Jewell DO Primary Care Provider Active Start: June 27, 2024 Sridevi Chamberlain ProviderActiveStart: June 27, 2024 Team Status: Active Member Role Status Dates Analia Dennis APRN MARKER DELIVERY-C Attending Provider Act car[place] Start: June 30, 2024 Wes Grey Care ProviderActiveStart: June 30, 2024 Team Status: Inactive Member Role Status Dates Analia Rohrbacher , ACID POLYMERIZATION OPERATOR MARKER DELIVERY-C Primary Care Provider, Attending Provider Active Start: July 08, 2024 End: July 08, 2024 Team Status: Active Member Role Status Dates Analia Dennis APRN MARKER DELIVERY-C Primary Care Provider, Attending Provider Active Start: July 09, 2024 Team Status: Active Member Role Status Dates Analia Dennis APRN MARKER DELIVERY-C Primary Care Provider Active Start: July 112023 Marshall Bolden , DOAttending ProviderActiveStart: July 11, 2024 Team Status: Active Member Role Status Dates Analia Dennis APRN MARKER DELIVERY-C Primary Care Provider Active Start: July 142023 Shadia Encarnacion , CMAAttending ProviderActiveStart: July 14, 2024 Team Status: Active Member Role Status Dates Analia Dennis APRN MARKER DELIVERY-C Primary Care Provider Active Start: July 152023 Naebriana Hall ProviderActiveStart: July 15, 2024 Team Status: Inactive Member Role Status Dates Analia Dennis APRN MARKER DELIVERY-C Primary Care Provider, Attending Provider Active Start: July 24, 2024 End: July 24, 2024 Team Status: Inactive Member Role Status Dates Analia Dennis APRN MARKER DELIVERY-C Attending Provider Act carolina Start: July 24, 2024 End: July 24, 2024Team MemberRelationshipSpecialtyStart DateEnd Date Jennifer Frazier MD [address] [place] [phone] PCP - GeneralVan [facility]est Medical Centerly Mvqqqedo87/20/24Team MemberRelationshipSpecialtyStart Date End Date Jennifer Frazier MD [address] [place] [phone] [facility] - [facility] Acerrmnx33/20/24Team MemberRelationshipSpecialtyStart Date End Date Jennifer Frazier MD [address] [place] [phone] PCP - GeneralFamily Zmimugro18/20/24 Team Status: Inactive Member Role Status Dates Paula Alberts DO Attending Provider Active Sta rt: October 24, 2024 End: October 24, 2024Analia Dennis APRN MARKER DELIVERY-CPrimary Care ProviderActive Start: October 24, 2024 End: October 24, 2024 Team Status: Active Member Role Status Dates Analia Dennis APRN MARKER DELIVERY-C Primary Care Provider Active Start: November 04, 2024 Keanu Koo MDAttending ProviderActiveStart: November 04, 2024 Team Status: Active Member Role Status Dates Analia eDnnis APRN MARKER DELIVERY-C Primary Care Provider Active Start: November 05, 2024 Sridevi Chamberlain ProviderActiveStart: November 05, 2024 Team Status: Inactive Member Role Status Dates Analia Dennis APRN MARKER DELIVERY-C Primary Care Provider, Attending Provider Active Start: November 12, 2024 End: November 12, 2024Team MemberRelationshipSpecialtyStart DateEnd Date Paula Alberts DO [address] [place] [phone] PCP - GeneralInternal Medicine03/10/25Team MemberRelationshipSpecialtyStart Date End Date Paula Alberts DO [address] [place] [address] PCP - GeneralInternal Medicine03/10/25Team MemberRelationshipSpecialtyStart Date End Date Paula Alberts DO [address] [place] [address] PCP - GeneralInternal Medicine03/10/25 Goals (unrecognized section and content) Goals may [...] BE BASED ON THE PRIMARY CLINICAL RECORDS. [facility] [employer] [facility]. provides no warranty or guarantee of the accuracy or completeness of information in this document.
--- OUTSIDE RECORDS SUMMARY | 2025-06-17 07:32 | XMS_ITS | Encounter Summary ---
Author Organization [facility] Address [address] [place] [address] Care Team Providers Care Ad Trafficker Name Role Phone Zenon Alberts Primary Care Provider [phone] Encounter Details DateTypeDepartmentCare Team (Latest Contact Info)Vaixhkyvrqf12/25/2025Telephone [facility] [address] [place] [address] Jeremiah Burroughs DO [address] [place], [place] [address] Social History Tobacco UseTypesPacks/DayYears UsedDateSmoking Tobacco: NeverAlcohol UseStandard Drinks/WeekCommentsYes2 (1 standard drink = 0.6 oz pure alcohol)1-2 drinks/monthly or lessCommentsNoSex and Gender InformationValueDate RecordedSex Assigned at EkaqjRozeso66/23/2023 3:49 PM EDTLegal SexFemale 10/04/2022 11:08 PM EDTGender FtsbprwgUitwha00/23/2023 3:49 PM EDTSexual OrientationNot on filedocumented as of this encounter Miscellaneous Notes * Telephone Encounter - Sil Combs LPN - 06/16/2025 11:34 AM EST Patient called the office and she did state that she did get a positive test and that shedid start the progesterone and not sure if needing lab work or to schedule an appointment. Patient call returned and she was advised we can order labs for her to have completed to make sure numbers are rising as they should and schedule her for office visit. LMP 04/25/2025 PVU about 7 weeks until we get confirmation. PVU transferred to clerical to schedule. documented in this encounter Plan of Treatment DateTypeDepartmentCare Team (Latest Contact Info)Avuewohlszi96/19/2025 10:30 AM ESTAncillary Procedure [facility] [address] [place] [phone] 07/10/2025 11:00 AM ESTInitial [facility] [address] [place] [address] NameTypePriorityAssociated DiagnosesOrder SchedulehCG, quantitative, LabRoutine Positive urine test ([facility]) Missed menses Expected: 06/16/2025 (Approximate), Expires: 12/14/2025documented as of this encounter Visit Diagnoses Diagnosis Positive urine test ([facility]) Missed menses documented in this encounter Care Teams Team MemberRelationshipSpecialtyStart DateEnd Date Zenon Alberts DO [address] [facility] [place] [address] PCP - GeneralInternal Medicine03/10/25documented as of this encounter
--- OUTSIDE RECORDS SUMMARY | 2025-06-17 07:32 | XMS_ITS | Clinical Summary ---
Author Organization AddressReport s tem Address [id number] [address] [place] [address] Care Team Providers Care Label Printer Name Role Phone No Pcp, No Pcp Primary Care Provider Unavailabl e Allergies Active AllergyReactionsCriticalityNoted DateCommentsMetronidazoleHivesHigh 01/10/2024 Medications * This document contains information received from the source organization and may not represent a complete record from that organization. MedicationSigDispense QuantityRefillsLast FilledStart DateEnd DateStatus amitriptyline (ELAVIL) 25 mg tablet Take 1 tablet (25 mg total) by mouth nightly.12/28/2023ctive escitalopram (LEXAPRO) 5 mg tablet Take 1 tablet (5 mg total) by mouth in the morning.Active ondansetron ODT (ZOFRAN ODT) 4 mg disintegrating tablet Dissolve 1 tablet (4 mg total) on tongue every 6 (six) hours as needed for vomiting or nausea.12/28/2023ctive dicyclomine (BENTYL) 10 mg capsule Take 1 capsule (10 mg total) by mouth daily as needed.Active cholecalciferol, vitamin D3, (VITAMIN D3 ORAL) Take 1 tablet by mouth in the morning.Active Active Problems No known active problems Family History Medical HistoryRelationNameCommentsNo Known ProblemsBrotherDaltonCancerFather Tonsil CancerHeart diseaseFatherProstate cancerFatherStrokeMotherNo Known ProblemsSister 1KaylaNo Known ProblemsSister 2KendraRelationNameStatusComments BrotherDaltonAliveFatherAliveMotherAliveSister 1KaylaAliveSister 2KendraAlive Social History Tobacco UseTypesPacks/DayYears UsedDateSmoking Tobacco: NeverSmokeless Tobacco: Never Tobacco Cessation:Counseling Given: Not Answered Alcohol UseStandard Drinks/WeekCommentsNot Currently0 (1 standard drink = 0.6 oz pure alcohol)ChildcareAnswerDate OkmxehamDcvqhptoxNvekyom56/13/2019Employment AnswerDate WwoswgmiBushrxzbtrTlmkliu82/13/2019Hunger ScreeningAnswerDate RecordedWithin the past 12 months we worried whether our food would run out before we got money to buy more.Never True02/13/2024Food Insecurity - Inability Not on file02/13/2024urpose - LifeAnswerDate RecordedPurpose and direction in zpubGrkjnar02/11/2021CommentsUnknownSex and Gender InformationValueDate RecordedSex Assigned at BirthNot on fileLegal YciNtxvzk82/10/2018 9:09 AM EDT Gender IdentityNot on fileSexual OrientationNot on file Last Filed Vital Signs Vital SignReadingTime TakenCommentsBlood Paudtwao779/7807 9:24 AM EDT Uakps098402/13/2024 9:24 AM EDTTemperature--Respiratory Rate--Oxygen Saturation-- Inhaled Oxygen Concentration--Pjfzcw43.3 kg (115 lb 6.4 oz)02/13/2024 9:24 AM JOBIizkoq235.6 cm (5' 4 )02/13/2024 9:24 AM EDTBody Mass Index19.8102/13/2024 9:24 AM EDT Plan of Treatment Health MaintenanceDue DateLast DoneCommentsDepression Xupoznybe24/28/2011Pap Smear11/18/2019DTaP,Tdap and Td Vaccines (7 - Td or Tdap), 01/27/2004, 05/21/2000, Additional history existsAdult BMI Dcarmbzlp07/24/2025 02/13/2024Tobacco Aubgequgb35/24/83455902/13/2024OVID-19 Vaccine ( season)/, 03/16/2021Influenza Gaxmccq92/07/2024 Medical Devices Not on file Insurance Care Teams Team MemberRelationshipSpecialtyStart DateEnd Date No Pcp, No Pcp JESE Palacios [address] PCP - GeneralFami Medicine02/13/24
--- OUTSIDE RECORDS SUMMARY | 2025-06-17 07:32 | XMS_ITS | Clinical Summary ---
Author Organization [facility] Address [address] [place] [address] Care Team Providers Care Oil Deliverer Name Role Phone Zenon Alberts DO Primary Care Provider [phone] Allergies Active AllergyReactionsCriticalityNoted MkrrFaesmqihJfyypzujtwwta89/23/2023 Medications MedicationSigDispense QuantityRefillsLast FilledStart DateEnd DateStatus escitalopram (Lexapro) 10 MG tablet Take 5 mg by mouth in the morning.Active dicyclomine (Bentyl) 10 MG capsule Take 10 mg by mouth Daily as gyxtsb664Active Active Problems ProblemNoted DateDiagnosed DateRenal vein ngjkhapd93/28/2023yst of left ovary 01/24/20236598Uyqlzzq50/05/2023Menstrual miygmigu93/05/2023Miscarriage ([facility]) 01/24/2023ain due to genitourinary prosthetic devices, implants and grafts, initial apolidkgz90/05/2023bnormal findings on imaging test12/08/2022ilateral arm pain12/08/20222422Rilzjlbnpgfeevwj96/19/2023llergy to food05/02/2022ltered bowel /11/2022nxiety about lpekhu1405/02/2022ile reflux gastritis 05/02/20227522Rwejetgvmi44/11/2022Generalized anxiety efktxzpb64/11/2022Irritable bowel syndrome with htjcevdy02/11/2022Lower abdominal pain05/02/2022Nausea 05/02/20225379Jqgbnotaqyu81/11/2488Zwefiyzmclf60/20/2022hronic oalimxs7612/09/2021 Chronic pain of left knee2Recurrent fkjzpyruub97/20/2022Urticaria 2Clostridium difficile dkauuem6610/28/2021 Encounters DateTypeDepartmentCare UvniAnzqmokggzo42/25/2025Telephone [facility] [address] [facility] [place] [address] Jeremiah Burroughs, 5Clinisync Result Encounter [facility] External Department Unsolicited Jeremiah Burroughs, 03/30/2025Telephone [facility] [address] [place] [address] Luna Laguerre LPN 03/24/2025 1:50 PM EDTOffice Visit [facility]UZN [address] [place] [address] Jeremiah Burroughs DO Encounter for infertility; PCOS (polycystic ovarian syndrome); Abnormal uterine bleeding (AUB)5Bamboo flowsheet [facility] OBADRIANAN [address] [place] [address] Jeremiah Burroughs, 03/17/2025Travelfrom Last 3 Months Immunizations ImmunizationAdministration DatesNext DleNPjO7701/27/2004DTaP, Unspecified 05/21/2000,05/16/1999,03/18/1999,01/14/1999HPV, Legbphlrvcdn71/01/2011, 02/07/2011Hep B, Adolescent or Fvgudrfkt51/25/1999,01/14/1999,1998HiB, pcncoroomxf11/02/2000,05/16/1999,03/18/1999,01/14/1999IPV01/27/2004MMR01/27/2004 ,02/22/2000Meningococcal LST4X9902/07/2011Pneumococcal Conjugate PCV Polio, Kefrmaakkfw57/02/2000,05/16/1999,03/18/1999,01/14/1999Tdap02/07/2011 Ujxogxsfm79/01/2011,02/07/2011,11/24/1999 Family History Medical HistoryRelationNameCommentsNo Known ProblemsBrotherHypertensionFather Prostate cancerFatherCancerMaternal GrandfatherCancerMaternal GrandmotherStroke MotherNo Known ProblemsSister2 sistersRelationNameStatusCommentsBrotherFather AliveMaternal GrandfatherMaternal GrandmotherMotherAliveSisterx2 Social History Tobacco UseTypesPacks/DayYears UsedDateSmoking Tobacco: Never Tobacco Cessation:Counseling Given: Not Answered Alcohol UseStandard Drinks/WeekCommentsYes2 (1 standard drink = 0.6 oz pure alcohol)1-2 drinks/monthly or lessCommentsNoSex and Gender Information ValueDate RecordedSex Assigned at RcdlgWcisff01/23/2023 3:49 PM EDTLegal Sex Szddus1410/04/2022 11:08 PM EDTGender AliwcjmePdeakz23/23/2023 3:49 PM EDTSexual OrientationNot on file Last Filed Vital Signs Vital SignReadingTime TakenCommentsBlood Zokfmlds472/6209 1:52 PM EDT Pulse--Temperature--Respiratory Rate--Oxygen Saturation--Inhaled Oxygen Concentration--Tkwujt59.3 kg (113 lb)03/24/2025 1:52 PM LQAAonpzf640.6 cm (5' 4 )03/24/2025 1:52 PM EDTBody Mass Index19. 1:52 PM EDT Plan of Treatment DateTypeDepartmentCare Team (Latest Contact Info)Thbueebdzjj31/19/2025 10:30 AM ESTAncillary Procedure [facility] [address] [place] [address] 07/10/2025 11:00 AM ESTInitial [facility] [address] [facility] [place] [address] Health MaintenanceDue DateLast DoneCommentsCOVID-19 Vaccine ( season) , 03/16/2021Influenza Vaccine (#1)2025Pneumococcal Vaccine: Pediatrics (0 to 5 Years) and At-Risk Patients (6 to 64 Years)Aged Out 05/21/2000No longer eligible based on patient's age to complete this topic Procedures Procedure NamePriorityDate/TimeAssociated DiagnosisCommentsALL CBC WITH AUTO MXQPMfjnjsp17/27/2025 10:10 AM EDT [facility] PREG QUANT ZNHMzmhkal97/27/2025 10:10 AM EDT ALL THYROID STIM NXTBQUYGeilwlt57/27/2025 10:10 AM EDT MLR HEMOGLOBIN Y3VLiadkbi28/27/2025 10:10 AM EDT ALL THYROXINE (T4) DVSGUorkqft88/27/2025 10:10 AM EDT ALL FOLLICLE STIMULATING ZYQCQLFGpqpvoi20/27/2025 10:10 AM EDT ALL LUTEINIZING XVHEOCHOoiuoag20/27/2025 10:10 AM EDT from Last 3 Months Results * [facility] PREG QUANT HCG (04/18/2025 10:10 AM EDT)ComponentValueRef RangeTest Method Analysis TimePerformed AtPathologist SignatureHCG QUANTITATIVE<1mIU/mLTBH Comment: 5-50 ? 0.2-1 WEEK 50-500 ? 1-2 WEEKS 100-5,000 ?2-3 WEEKS 500-10,000 ? 3-4 WEEKS 1,000-50,000 ?? 4-5 WEEKS 10,000-100,000 5-6 WEEKS 15,000-200,000 6-8 WEEKS 10,000-100,000 2-3 MONTHS Specimen (Source)Anatomical Location / LateralityCollection Method / Volume Collection TimeReceived Time04/18/2025 10:10 AM EDT04/18/2025 10:15 AM EDT Narrative CLINISYNC - 04/18/2025 12:15 PM EDT Authorizing ProviderResult TypeResult StatusCorey Heike DOCLINISYNCFinal Result Performing OrganizationAddressty/State/ZIP CodePhone Number [facility] * MLR HEMOGLOBIN A1C (04/18/2025 10:10 AM EDT)ComponentValueRef RangeTest Method Analysis TimePerformed AtPathologist SignatureGLYCOHEMOGLOBIN A1C5.14.5 - 6.2 %TBHComment: ADA RECOMMENDED LIMIT 4.0 - 6.0 ADA THERAPEUTIC TARGET < 7.0 ACTION SUGGESTED > 7.0 ESTIMATED AVERAGE NXCYDWC230hf/dLTBHSpecimen (Source)Anatomical Location / LateralityCollection Method / VolumeCollection TimeReceived Time04/18/2025 10:10 AM EDT04/18/2025 10:15 AM EDT Narrative CLINISYCA - 04/18/2025 12:03 PM EDT Authorizing ProviderResult TypeResult StatusCorey [facility] DOCLINISYNCFinal Result Performing OrganizationAddSt. Mary Rehabilitation Hospitalty/State/ZIP CodePhone Number [facility] * ALL THYROXINE (T4) FREE (04/18/2025 10:10 AM EDT)ComponentValueRef RangeTest MethodAnalysis TimePerformed AtPathologist SignatureFREE T40.970.76 - 1.46 ng/dLTBHSpecimen (Source)Anatomical Location / LateralityCollection Method / VolumeCollection TimeReceived Time04/18/2025 10:10 AM EDT04/18/2025 10:15 AM EDT Narrative CLINISYCA - 04/18/2025 12:15 PM EDT Authorizing ProviderResult TypeResult StatusCorey Heike DOCLINISYNCFinal Result Performing OrganizationAddDepartment of [facility]/State/ZIP CodePhone Number [facility] * ALL THYROID STIM HORMONE (04/18/2025 10:10 AM EDT)ComponentValueRef RangeTest MethodAnalysis TimePerformed AtPathologist SignatureTHYROID STIMULATING HORMONE1.1060.358 - 3.740 uIU/mLTBHSpecimen (Source)Anatomical Location / LateralityCollection Method / VolumeCollection TimeReceived Time04/18/2025 10:10 AM EDT04/18/2025 10:15 AM EDT Narrative CLINISYCA - 04/18/2025 12:15 PM EDT Authorizing ProviderResult TypeResult StatusCorey Heike DOCLINISYNCFinal Result Performing OrganizationAddressCity/State/ZIP CodePhone Number CLINISYNC [facility] * ALL LUTEINIZING HORMONE (04/18/2025 10:10 AM EDT)ComponentValueRef RangeTest MethodAnalysis TimePerformed AtPathologist SignatureLUTEINIZING HORMONE(LH) 11.6. mIU/mLTBHComment: ? Adult Female ?Range ?Follicular phase ?2.4 - ??12.6 ?Ovulation phase ?14.0 - ??95.6 ?Luteal phase ?1.0 - ??11.4 ?Postmenopausal ?7.7 - ??58.5 Specimen (Source)Anatomical Location / LateralityCollection Method / Volume Collection TimeReceived Time04/18/2025 10:10 AM EDT04/18/2025 10:15 AM EDT Narrative CLINISYNC - 04/19/2025 7:09 AM EDT Authorizing ProviderResult TypeResult StatusCorey Heike DOCLINISYNCFinal Result Performing OrganizationAddressty/State/ZIP CodePhone Number CLINISYNC [facility] * ALL FOLLICLE STIMULATING HORMONE (04/18/2025 10:10 AM EDT)ComponentValueRef RangeTest MethodAnalysis TimePerformed AtPathologist SignatureFSH6.7. mIU/mL TBHComment: ? Adult Female ? Range ?Follicular phase ?3.5 - ??12.5 ?Ovulation phase ? 4.7 - ??21.5 ?Luteal phase ?1.7 - ?? 7.7 ?Postmenopausal ? 25.8 - 134.8 Performed at: ??CB - [facility] [address], [place], [place] [id number] Surgical Elastic Knitter: Kai Schuster PhD, Phone: ??[phone] Specimen (Source)Anatomical Location / LateralityCollection Method / Volume Collection TimeReceived Time04/18/2025 10:10 AM EDT04/18/2025 10:15 AM EDT Narrative CLINISYNC - 04/19/2025 7:09 AM EDT Authorizing ProviderResult TypeResult StatusCorey Heike DOCLINISYNCFinal Result Performing OrganizationAddressCity/State/ZIP CodePhone Number [facility] * (ABNORMAL) ALL CBC WITH AUTO DIFF (04/18/2025 10:10 AM EDT)ComponentValueRef RangeTest MethodAnalysis TimePerformed AtPathologist SignatureTBH WBC4.84.0 - 11.0 10 3/uLTBHTBH RBC4.594.20 - 5.40 10 6/uLTBHTBH HGB14.612.0 - 16.0 g/dLTBH TBH HCT42.836.0 - 48.0 %TBHTBH MCV93.281.0 - 99.0 fLTBHTBH MCH31.826.7 - 34.0 pgTBHTBH MCHC34.129.9 - 35.2 g/dLTBHTBH RDW11.411.0 - 15.0 %TBHTBH QCJ384275 - 450 10 3/uLTBHTBH MPV11.09.5 - 13.5 fLTBHNEUTROPHILS PERCENT AUTO31.3(L)43.0 - 75.0 %TBHLYMPHOCYTES PERCENT AUTO52.120.5 - 60.0 %TBHMONOCYTES PERCENT AUTO7.9 1.7 - 12.0 %TBHTBH EO %7.5(H)0.9 - 7.0 %TBHBASOPHILS PERCENT AUTO1.20.2 - 2.0 %TBHIMMATURE GRANULOCYTES PCT AUTO0.00.0 - 0.5 %TBHNEUTROPHILS ABSOLUTE AUTO 1.51.4 - 6.5 10 3/uLTBHLYMPHOCYTES ABSOLUTE AUTO2.51.2 - 3.8 10 3/uLTBH MONOCYTES ABSOLUTE AUTO0.40.3 - 0.8 10 3/uLTBHTBH EO #0.40.0 - 0.7 10 3/uLTBH BASOPHILS ABSOLUTE AUTO0.10.0 - 0.1 10 3/uLTBHIMMATURE GRANULOCYTES ABS AUTO 0.000.00 - 0.03 10 3/uLTBHSpecimen (Source)Anatomical Location / Laterality Collection Method / VolumeCollection TimeReceived Time04/18/2025 10:10 AM EDT 04/18/2025 10:15 AM EDT Narrative CLINISYNC - 04/18/2025 10:32 AM EDT Authorizing ProviderResult TypeResult StatusCorey Heike DOCLINISYNCFinal Result Performing OrganizationAddressCity/State/ZIP CodePhone Number CLINISYNC [facility] from Last 3 Months Insurance Care Teams Team MemberRelationshipSpecialtyStart DateEnd Date Zenon Alberts DO [address] [place] [phone] PCP - GeneralInternal Medicine03/10/25
== END 2025-06-22 08:26 | disposition home or self-care (01) ==
LOC: LAB 07:29
PROVIDERS: PCP Nurse Practitioner Family; Visit Provider Obstetrics & Gynecology
DX: Z51.81 Encounter for therapeutic drug level monitoring (principal); Z32.01 Encounter for pregnancy test, result positive; N92.6 Irregular menstruation, unspecified
CPT/HCPCS: 36415; 84702

== ENCOUNTER 2025-06-22 07:39 | Outpatient (OUT) | payer BC, SELFPAY ==
--- OUTSIDE RECORDS SUMMARY | 2025-06-22 07:42 | XMS_ITS | Clinical Summary ---
Author Organization [facility] Address [address] [place] [address] Care Team Providers Care Supervisor Alteration Workroom Name Role Phone Kyree Stinson MD Primary Care Provider [phone] Allergies Active AllergyReactionsCriticalityNoted DateCommentsMetronidazoleAnxiety, Diarrhea,Dizziness,Nausea Only,Palpitations,Rash,Shortness of [...] Problems ProblemNoted DateDiagnosed DateLong-term use of high-risk sushvqrxfv80/24/2024 Upper back pain07/15/20243701Ueaprgflkn85/25/5979Yrjvqvogdwgy42/25/2024enal vein rvxiyobg01/28/2023yst of left ovary01/24/20230265Amtthvy62/05/2023Menstrual ofspyvrj22/05/7200Qfasoymwzfp00/05/2023Pain due to genitourinary prosthetic devices, implants and grafts, initial annjbcbuz94/05/2023bnormal findings on imaging test12/08/20222648Rkfshfgnexwtxqrm72/19/2023ile reflux niavaduwi75/11/2022 Allergy to food05/02/2022nxiety about jusrzv9405/02/2022ody mass index (BMI) of 20 to 2413057Dndgxukwwr03/11/2022Altered bowel /11/2022Lower abdominal pain05/02/2022Generalized anxiety /11/2022Irritable bowel syndrome with nlcecgpy35/11/1908Xnjtuu81/11/3681Nrzqnxmvazc27/11/2022hronic yzlxurz14/20/2022Recurrent iwkrjxxpjz19/20/5296Vyfcydjya56/20/2022lostridium difficile pcsbetx9810/28/2021 Resolved Problems ProblemNoted DateDiagnosed DateResolved DatpQwrlruhytde74 Chronic left shoulder pain/hronic pain of left knee Immunizations ImmunizationAdministration DatesNext UciENpV4301/27/2004DTaP, Unspecified 05/21/2000,05/16/1999,03/18/1999,01/14/1999HPV, Ebvamxxpocdf63/01/2011, 02/07/2011Hep B, Adolescent or Dgsiqwvlh49/25/1999,01/14/1999,1998HiB, ifwcprydkvs33/02/2000,05/16/1999,03/18/1999,01/14/1999IPV01/27/2004MMR01/27/2004 ,02/22/2000Meningococcal WVD7U9402/07/2011Pneumococcal Conjugate PCV Polio, Jqsuusojool05/02/2000,05/16/1999,03/18/1999,01/14/1999Tdap02/07/2011 Unspecified Sars-Cov-2 Czxipcfdxzq97/15/2021,04/06/2021,03/16/2021,03/16/2021 Qvrqbdnjp25/07/2010,02/07/2011,11/24/1999 Social History Tobacco UseTypesPacks/DayYears UsedDateSmoking Tobacco: NeverSmokeless [...] partner or ex-partner?No07/28/2024PHQ-2 AnswerDate RecordedPatient Health Questionnaire-2 Tfrln708UT Safety & EnvironmentAnswerDate RecordedFear of Current or Ex-PartnerNot on file09/13/2023 Emotionally AbusedNot on file09/13/2023hysically AbusedNot on file09/13/2023 Sexually AbusedNot on file4Physically or Sexually AbusedNot on file 09/13/2023CommentsNoSex and Gender InformationValueDate RecordedSex Assigned at IjtloGadfqr90/07/2023 9:41 PM ESTLegal QruDirtvk12/30/2022 12:44 AM EDTGender FwdzefnxQjggyr36/07/2023 9:41 PM ESTSexual OrientationNot on file Last Filed Vital Signs Vital SignReadingTime TakenCommentsBlood Kfwlhmjo619/63007/28/2024 2:22 PM EST Otxzm724807/28/2024 2:22 PM ZOTOouhmbjlpzk54.4 ??C (97.5 ??F)08/15/2022 10:15 AM ESTRespiratory Fsxk950908/15/2022 12:00 PM ESTOxygen Rzxdhchtro283%08/15/2022 12:00 PM ESTInhaled Oxygen Concentration--Lwhjtr89.2 kg (115 lb)07/28/2024 2:22 PM CACJshzok263.6 cm (5' 4 )07/28/2024 2:22 PM ESTBody Mass Index19.7407/28/2024 2:22 PM EST Plan of Treatment Health MaintenanceDue DateLast DoneCommentsHPV Vaccines (3 - 2-dose series) , 02/07/2011Pap Smear11/18/2019Adult Zgxnezv8511/17/2020 02/07/2011COVID-19 Vaccine ( season), 04/06/2021, 04/06/2021, Additional history existsInfluenza Vaccine (#1)03/23/2025Depression Ievntjruf36/06/317181/12/2024Zoster Vaccines (1 of 2)911/07/2010, 02/07/2011, 11/24/1999HIB GetzwyapJlwuppfmi03/02/2000, 05/16/1999, 03/18/1999, Additional history existsPneumococcal Vaccine: Pediatrics (0 to 5 Years) and At- Risk Patients (6 to 64 Years)Aged Out05/21/2000No longer eligible based on patient's age to complete this topicIPV ThyzgvsbVxejdsnys44/07/2004, 02/22/2000, 05/16/1999, Additional history existsMeningococcal VaccineAged Out02/07/2011No longer eligible based on patient's age to complete this topicVaricella Vaccines Ovqkpretz89/01/2011, 02/07/2011, 11/24/1999Meningococcal B VaccineAged OutNo longer eligible based on patient's age to complete this topicRotavirus Vaccines Aged OutNo longer eligible based on patient's age to complete this topic Insurance Care Teams Team MemberRelationshipSpecialtyStart DateEnd Date Kyree Stinson MD [address], [place] [id number] [facility]09/20/22
--- OUTSIDE RECORDS SUMMARY | 2025-06-22 07:42 | XMS_ITS | Encounter Summary ---
Author Organization [facility] Address [address] [place] [address] Care Team Providers Care Tuft Machine Operator Name Role Phone Zenon Alberts Primary Care Provider [phone] Encounter Details DateTypeDepartmentCare Team (Latest Contact Info)Ghlbxepyugn12/25/2025Telephone [facility] [address] [place] [address] Jeremiah Burroughs DO [address] [place], [place] [address] Social History Tobacco UseTypesPacks/DayYears UsedDateSmoking Tobacco: NeverAlcohol UseStandard Drinks/WeekCommentsYes2 (1 standard drink = 0.6 oz pure alcohol)1-2 drinks/monthly or lessCommentsNoSex and Gender InformationValueDate RecordedSex Assigned at MxvvkRrdxlv81/23/2023 3:49 PM EDTLegal SexFemale 10/04/2022 11:08 PM EDTGender ZwhstnqsTsornt74/23/2023 3:49 PM EDTSexual OrientationNot on filedocumented as [...] Plan of Treatment DateTypeDepartmentCare Team (Latest Contact Info)Jpboddkcsgj25/19/2025 10:30 AM ESTAncillary Procedure [facility] [address] [place] [phone] 07/10/2025 11:00 AM ESTInitial [facility] [address] [place] [address] NameTypePriorityAssociated DiagnosesOrder SchedulehCG, quantitative, LabRoutine Positive urine test ([facility]) Missed menses Expected: 06/16/2025 (Approximate), Expires: 12/14/2025documented as of this encounter Visit Diagnoses Diagnosis Positive urine test ([facility]) Missed menses documented in this encounter Care Teams Team MemberRelationshipSpecialtyStart DateEnd Date Zenon Alberts DO [address] [facility] [place] [address] PCP - GeneralInternal Medicine03/10/25documented as of this encounter
--- OUTSIDE RECORDS SUMMARY | 2025-06-22 07:42 | XMS_ITS | Clinical Summary ---
Author Organization [facility] Address [address] [place] [address] Phone Care Team Providers Care Card Feeder Name Role Phone Unavailable Primary Care Provider Unavailabl e Allergies Active AllergyReactionsCriticalityNoted DnhoSwfylqjdCjxetziicfuhaYhovm55/25/2024 Medications MedicationSigDispense QuantityRefillsLast FilledStart DateEnd DateStatus dicyclomine (Bentyl) 10 mg capsule Take 1 capsule (10 mg) by mouth once daily as needed.11/29/2023ctive escitalopram (Lexapro) 10 mg tablet Take 0.5 tablets (5 mg) by mouth once daily.11/29/2023ctive ondansetron ODT (Zofran-ODT) 4 mg disintegrating tablet Take 1 tablet (4 mg) by mouth every 6 hours if needed.12/28/2023ctive Active Problems ProblemNoted DateDiagnosed EliqBmcqyxfgjg84/25/2024 Social History Tobacco UseTypesPacks/DayYears UsedDateSmoking Tobacco: NeverSmokeless [...] on one occasion?Never02/05/2024HQ-2 AnswerDate RecordedPatient Health Questionnaire-2 Yshiz328 CommentsNoSex and Gender InformationValueDate RecordedSex Assigned at Abhwra8701/30/2024 9:51 AM EDTLegal FwdSmnczh55/04/2024 8:24 AM EDTGender Identity Dqzsoh6501/30/2024 9:51 AM EDTSexual UylpdqrriuwOcpfydgx31/10/2024 9:51 AM EDT Last Filed Vital Signs Vital SignReadingTime TakenCommentsBlood Kydsnpgi95/6409 10:51 AM EDT Prgeb9201 10:51 AM UUSWbqsbbhtsji68.2 ??C (97.2 ??F)04/16/2024 10:21 AM EDTRespiratory Yudy745204/16/2024 10:51 AM EDTOxygen Vrsdpkqjps952%04/16/2024 10:51 AM EDTInhaled Oxygen Concentration--Bmmqyk35.2 kg (115 lb)04/16/2024 8:23 AM XDDGgzvci722.6 cm (5' 4 )04/16/2024 8:23 AM EDTBody Mass Index19.7404/16/2024 8:23 AM EDT Plan of Treatment Health MaintenanceDue DateLast DoneCommentsHIV Nsawzqlkf51/28/1999Lipid Panel 1998HPV Vaccines (3 - 2-dose series), 02/07/2011 Hepatitis C Hbjmzkian61/28/2017Cervical Cancer Dpdsvagsm27/28/2020HPV/Cotest 11/18/2019Pap Smear11/18/2019DTaP/Tdap/Td Vaccines (7 - Td or Tdap)02/07/2021 02/07/2011, 01/27/2004, 05/21/2000, Additional history existsYearly Adult Jhxakgit93/16/792951/, 05/24/2023Influenza Vaccine (#1)5COVID-19 Vaccine ( season), 03/16/2021Zoster Vaccines (1 of 2)911/07/2010, 02/07/2011, 11/24/1999Hepatitis B VaccinesCompleted 05/16/1999, 01/14/1999, 1998HIB PvgwtdccUikpdazub83/02/2000, 05/16/1999, 03/18/1999, Additional history existsPneumococcal Vaccine: Pediatrics and At- Risk Adult PatientsAged Out05/21/2000No longer eligible based on patient's age to complete this topicIPV IyixcgxmVggwoyxjg53/07/2004, 02/22/2000, 05/16/1999, Additional history existsMMR YgthekiuZwbyxlwyt17/07/2004, 02/22/2000 Meningococcal VaccineAged Out02/07/2011No longer eligible based on patient's age to complete this topicHepatitis A VaccinesAged OutNo longer eligible based on patient's age to complete this topicRotavirus VaccinesAged OutNo longer eligible based on patient's age to complete this topic Insurance
--- OUTSIDE RECORDS SUMMARY | 2025-06-22 07:42 | XMS_ITS | Clinical Summary ---
Author Organization [facility] Address [address] [place], [place] [address] Care Team Providers Care Vision Therapist Name Role Phone Keshia Restrepo MD Primary Care Provider [phone] Allergies Active AllergyReactionsCriticalityNoted DateCommentsMetronidazoleMental Status Change,Diarrhea,GI Upset,Hives,Other: See Comments,Rash,Shortness of Breath, Unknown,LoihnlpyLtva55/16/2021 Medications MedicationSigDispense QuantityRefillsLast FilledStart DateEnd DateStatus escitalopram [...] DateUpper back pain07/15/2024Long-term use of high- risk yvsyvfqzaw18/24/2024Organic anxiety xlrygbpo41/25/2024alpitations 11/15/2023ilateral arm pain3Chronic bilateral low back pain without rskcfuxo69/19/2023bnormal findings on imaging test3Photosensitivity 6723Wxlcburjhmh09/20/2022Chronic pain of left knee2Chronic left shoulder pain2Recurrent wnasxilods02/20/2595Ywzwkjzjn31/20/2022Chronic gokgzaq3812/09/2021 Family History Medical HistoryRelationCommentsHeartFatherProstate CancerFatherStrokeMotherColon CancerNo Family HistoryRelationStatusCommentsFatherAliveMotherAlive Social History Tobacco UseTypesPacks/DayYears UsedDateSmoking Tobacco: NeverSmokeless Tobacco: Never Tobacco Cessation:Counseling Given: Yes Alcohol UseStandard Drinks/WeekCommentsNot Currently0 (1 standard drink = 0.6 oz pure alcohol)socially- rarePHQ-2AnswerDate RecordedPHQ-2 tsmjn6704Area Deprivation IndexAnswerDate RecordedNational Score (1-100), lower number is lower tggz2095State Score (1-10), lower number is lower naxh253 Data from: https://www.neighborhoodatlas.[facility].edu/. Last address used for cev[address]tz[address]3CommentsNoSex and Gender InformationValueDate RecordedSex Assigned at HhsztMzklxv85/13/2021 10:03 PM EDT Legal PzmGjintk20/14/2021 4:54 PM EDTGender HfbceeewQlxtup57/13/2021 10:03 PM EDTSexual EcmhmoklfooVktfpamw30/13/2021 10:03 PM EDT Last Filed Vital Signs Vital SignReadingTime TakenCommentsBlood Qlyhztfp236/61009/03/2024 11:00 AM EST Kwrhk743309/03/2024 11:00 AM IEWGhilootbecy30.9 ??C (98.4 ??F)09/03/2024 10:13 AM ESTRespiratory Xfbc880709/03/2024 11:00 AM ESTOxygen Xaezgicfer686%09/03/2024 11:00 AM ESTInhaled Oxygen Concentration--Bxiyuw51.2 kg (115 lb)09/03/2024 10:13 AM QALKsirig551.6 cm (5' 4 )09/03/2024 10:13 AM ESTBody Mass Index19.74 09/03/2024 10:13 AM EST Plan of Treatment Health MaintenanceDue DateLast DoneCommentsPeds To Adult Transition Initial Fbatcsxirw45/28/2011HPV Vaccine (3 - 2-dose series), 02/07/2011Peds To Adult Transition Annual Hxzthhceab26/28/2013Depression Natmubhto39/28/2017HIV Fxkgdicsg50/28/2017Cervical Cancer Qexxbftvp53/28/2020 DTaP,Tdap,Td Vaccine (7 - Td or Tdap), 01/27/2004, 05/21/2000, Additional history existsCovid-19 Vaccine (2024- season) /, 03/16/2021Influenza Vaccine (#1)2025Hepatitis B ZoerdvcCtimpnluw48/25/1999, 01/14/1999, 1998Hepatitis C ScreeningCompleted 12/08/2022 Procedures Procedure NamePriorityDate/TimeAssociated DiagnosisCommentsHEPATITIS C ANTIBODY IA WITH LWYZRVXVYSIDElggzwk48/19/2023 12:39 PM EDT Elevated LFTs from Last 3 Months or Most Recently Relevant to Health Maintenance Results * HEP C AB IA W/CONF SCRN (12/08/2022 12:39 PM EDT)ComponentValueRef RangeTest MethodAnalysis TimePerformed AtPathologist SignatureHep C Antibody IANegative Grdnuecp74/20/2023 10:13 AM EDTCMAIN CAMPUS MEDICAL CENTER LABComment:The result suggests no evidence of active infection with Hepatitis C virus. Should recent infectionbe suspected, repeat testing may be considered 4-6 weeks after this draw.Specimen (Source)Anatomical Location / LateralityCollection Method / VolumeCollection TimeReceived TimeBloodBLOOD SPECIMEN / UnknownVenipuncture / Hmwesuq2812/08/2022 12:39 PM EDT12/08/2022 12:41 PM EDT Narrative Authorizing ProviderResult TypeResult StatusMarsundeep Gee MDLABORATORYFinal ResultPerforming OrganizationAddressCity/State/ZIP CodePhone Number [facility] [address] [place] [address], from Last 3 Months or Most Recently Relevant to Health Maintenance Insurance MemberSubscriberPlan / Payer (Effective 2022-Present)Name:ROSA ALONZO Member ID:[id number] Relation to Subscriber:ChildName:ANA HENAO Subscriber ID:[id number] Date of :1970 (Home) Address: [address] [place] [address] Payer ID:[id number] (NAIC) Type:PPO Address: [place] [address] Care Teams Team MemberRelationshipSpecialtyStart DateEnd Date Keshia Restrepo MD [address] [place] [address] PCP - GeneralFamily Ycpxnwzn20/20/24
--- OUTSIDE RECORDS SUMMARY | 2025-06-22 07:42 | XMS_ITS | Clinical Summary ---
Author Organization [facility] [employer] [facility] Address [id number] 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 Name Role Phone No Pcp, No Pcp [...] standard drink = 0.6 oz pure alcohol)ChildcareAnswerDate YnbeugppSdpqyzwvkAjiumcm56/13/2019Employment AnswerDate FdfvqsacXjtsbfbzvoZjzpskl02/13/2019Hunger ScreeningAnswerDate RecordedWithin the past 12 months we worried whether our food would run out before we got money to buy more.Never True02/13/2024Food Insecurity - Inability Not on file02/13/2024urpose - LifeAnswerDate RecordedPurpose and direction in rixoBeqlrgo50/11/2021CommentsUnknownSex and Gender InformationValueDate RecordedSex Assigned at BirthNot on fileLegal TbsZbtnqv87/10/2018 9:09 AM EDT Gender IdentityNot on fileSexual OrientationNot on file Last Filed Vital Signs Vital SignReadingTime TakenCommentsBlood Uqvznmzh177/7807 9:24 AM EDT Myjre981602/13/2024 9:24 AM EDTTemperature--Respiratory Rate--Oxygen Saturation-- Inhaled Oxygen Concentration--Xpzgqr09.3 kg (115 lb 6.4 oz)02/13/2024 9:24 AM RWJYahyyd782.6 cm (5' 4 )02/13/2024 9:24 AM EDTBody Mass Index19.8102/13/2024 9:24 AM EDT Plan of Treatment Health MaintenanceDue DateLast DoneCommentsDepression Trzzsxxcl61/28/2011Pap Smear11/18/2019DTaP,Tdap and Td Vaccines (7 - Td or Tdap), 01/27/2004, 05/21/2000, Additional history existsAdult BMI Kdblnbjtt93/24/2025 02/13/2024Tobacco Lxstjwyvn40/24/92665202/13/2024OVID-19 Vaccine ( season)/, 03/16/2021Influenza Shsbglp40/07/2024 Medical Devices Not on file Insurance Care Teams Team MemberRelationshipSpecialtyStart DateEnd Date No Pcp, No Pcp JESE Palacios [address] PCP - GeneralFami Medicine02/13/24
--- OUTSIDE RECORDS SUMMARY | 2025-06-22 07:42 | XMS_ITS | Clinical Summary ---
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 Name Role Phone Zenon Alberts DO Primary Care Provider [phone] Allergies Active AllergyReactionsCriticalityNoted DhhfLdzypnvcChlvwissvvnyk03/23/2023 Medications MedicationSigDispense QuantityRefillsLast FilledStart DateEnd DateStatus escitalopram (Lexapro) 10 MG tablet Take 5 mg by mouth in the morning.Active dicyclomine (Bentyl) 10 MG capsule Take 10 mg by mouth Daily as aorvlh484Active Active Problems ProblemNoted DateDiagnosed DateRenal vein ohchttgo49/28/2023yst of left ovary 01/24/20231452Ydxhsdl11/05/2023Menstrual avztpcgb18/05/2023Miscarriage ([facility]) 01/24/2023ain due to genitourinary prosthetic devices, implants and grafts, initial owisejlnv43/05/2023bnormal findings on imaging test12/08/2022ilateral arm pain12/08/20220604Ubedpqaioillznlv76/19/2023llergy to food05/02/2022ltered bowel dllzwnmi96/11/2022nxiety about fiddsn8805/02/2022ile reflux gastritis 05/02/20222563Seowfzzdpj84/11/2022Generalized anxiety alvfubqh71/11/2022Irritable bowel syndrome with fqciuqlk95/11/2022Lower abdominal pain05/02/2022Nausea 05/02/20228570Rxxmivesytt00/11/6317Laesnzgkkpb51/20/2022hronic uowogst7112/09/2021 Chronic pain of left knee2Recurrent uxdxnpcfal78/20/2022Urticaria 2Clostridium difficile ogdpxtt2810/28/2021 Encounters DateTypeDepartmentCare JlzbAnjkhddlest32/25/2025Telephone [facility] [address] [place] [address] Jeremiah Burroughs DO 5Clinisync Result Encounter [facility] External Department Unsolicited Jeremiah Burroughs DO 03/30/2025Telephone [facility] [address] [facility] [place] [address] Luna Laguerre LPN 03/24/2025 1:50 PM EDTOffice Visit [facility] [address] [facility] [place] [address] Jeremiah Burroughs DO Encounter for infertility; PCOS (polycystic ovarian syndrome); Abnormal uterine bleeding (AUB)5Bamboo flowsheet [facility] OBADRIANAN [address] [facility] [place] [address] Jeremiah Burroughs DO from Last 3 Months Immunizations ImmunizationAdministration DatesNext WswDByL8601/27/2004DTaP, Unspecified 05/21/2000,05/16/1999,03/18/1999,01/14/1999HPV, Fqbvezydeczf54/01/2011, 02/07/2011Hep B, Adolescent or Ipootfwtx04/25/1999,01/14/1999,1998HiB, icsmvckqwcs21/02/2000,05/16/1999,03/18/1999,01/14/1999IPV01/27/2004MMR01/27/2004 ,02/22/2000Meningococcal NGL6N1502/07/2011Pneumococcal Conjugate PCV Polio, Vitzbefjtbn04/02/2000,05/16/1999,03/18/1999,01/14/1999Tdap02/07/2011 Yqxqrqjlf47/01/2011,02/07/2011,11/24/1999 Family History Medical HistoryRelationNameCommentsNo Known ProblemsBrotherHypertensionFather Prostate cancerFatherCancerMaternal GrandfatherCancerMaternal GrandmotherStroke MotherNo Known ProblemsSister2 sistersRelationNameStatusCommentsBrotherFather AliveMaternal GrandfatherMaternal GrandmotherMotherAliveSisterx2 Social History Tobacco UseTypesPacks/DayYears UsedDateSmoking Tobacco: Never Tobacco Cessation:Counseling Given: Not Answered Alcohol UseStandard Drinks/WeekCommentsYes2 (1 standard drink = 0.6 oz pure alcohol)1-2 drinks/monthly or lessCommentsNoSex and Gender Information ValueDate RecordedSex Assigned at PrcmvWswkhz12/23/2023 3:49 PM EDTLegal Sex Pzmqxt4210/04/2022 11:08 PM EDTGender RrhyzutvDhtwno12/23/2023 3:49 PM EDTSexual OrientationNot on file Last Filed Vital Signs Vital SignReadingTime TakenCommentsBlood Vjwfvfqa495/6209 1:52 PM EDT Pulse--Temperature--Respiratory Rate--Oxygen Saturation--Inhaled Oxygen Concentration--Plnsme14.3 kg (113 lb)03/24/2025 1:52 PM UQRZvmmwi701.6 cm (5' 4 )03/24/2025 1:52 PM EDTBody Mass Index19. 1:52 PM EDT Plan of Treatment DateTypeDepartmentCare Team (Latest Contact Info)Wroximzmkar69/19/2025 10:30 AM ESTAncillary Procedure [facility] [address] [place] [address] 07/10/2025 11:00 AM ESTInitial NOMEdilma [facility] [address] [place] [address] Health MaintenanceDue DateLast DoneCommentsCOVID-19 Vaccine (2024- season) , 03/16/2021Influenza Vaccine (#1)2025Pneumococcal Vaccine: Pediatrics (0 to 5 Years) and At-Risk Patients (6 to 64 Years)Aged Out 05/21/2000No longer eligible based on patient's age to complete this topic Procedures Procedure NamePriorityDate/TimeAssociated DiagnosisCommentsALL CBC WITH AUTO YPZMVvfikum70/27/2025 10:10 AM EDT TBH PREG QUANT HXXHlcdzkx68/27/2025 10:10 AM EDT ALL THYROID STIM WQGFVRIIzoycpm29/27/2025 10:10 AM EDT MLR HEMOGLOBIN S3QBpubxoy21/27/2025 10:10 AM EDT ALL THYROXINE (T4) XUBWJqjahze36/27/2025 10:10 AM EDT ALL FOLLICLE STIMULATING SDPYCIOKbgydzp33/27/2025 10:10 AM EDT ALL LUTEINIZING WQIRNXZKhgciuw31/27/2025 10:10 AM EDT from Last 3 Months [...] ProviderResult TypeResult StatusCorey Heike DOCLINISYNCFinal Result Performing OrganizationAddAllegheny Health Networkty/State/ZIP CodePhone Number [facility] * MLR HEMOGLOBIN A1C (04/18/2025 10:10 AM EDT)ComponentValueRef RangeTest Method Analysis TimePerformed AtPathologist SignatureGLYCOHEMOGLOBIN A1C5.14.5 - 6.2 %TBHComment: ADA RECOMMENDED LIMIT 4.0 - 6.0 ADA THERAPEUTIC TARGET < 7.0 ACTION SUGGESTED > 7.0 ESTIMATED AVERAGE AEBFUPD316kr/dLTBHSpecimen (Source)Anatomical Location / LateralityCollection Method / VolumeCollection TimeReceived Time04/18/2025 10:10 AM EDT04/18/2025 10:15 AM EDT Narrative [facility] - 04/18/2025 12:03 PM EDT Authorizing ProviderResult TypeResult StatusCorey Heike DOCLINISYNCFinal Result Performing OrganizationAdd[facility]/State/ZIP CodePhone Number [facility] * ALL THYROXINE (T4) FREE (04/18/2025 10:10 AM EDT)ComponentValueRef RangeTest MethodAnalysis TimePerformed AtPathologist SignatureFREE T40.970.76 - 1.46 ng/dLTBHSpecimen (Source)Anatomical Location / LateralityCollection Method / VolumeCollection TimeReceived Time04/18/2025 10:10 AM EDT04/18/2025 10:15 AM EDT Narrative [facility] - 04/18/2025 12:15 PM EDT Authorizing ProviderResult TypeResult StatusCorey Heike DOCLINISYNCFinal Result Performing OrganizationAddFor[facility]/State/ZIP CodePhone Number [facility] * ALL THYROID STIM HORMONE (04/18/2025 10:10 AM EDT)ComponentValueRef RangeTest MethodAnalysis TimePerformed AtPathologist SignatureTHYROID STIMULATING HORMONE1.1060.358 - 3.740 uIU/mLTBHSpecimen (Source)Anatomical Location / LateralityCollection Method / VolumeCollection TimeReceived Time04/18/2025 10:10 AM EDT04/18/2025 10:15 AM EDT Narrative CLINISYIA - 04/18/2025 12:15 PM EDT Authorizing ProviderResult [...] - 134.8 Performed at: ??CB - [facility] [address] [place] [address], [place], [place] [id number] Primary Operator: Kai Schuster PhD, Phone: ??[phone] Specimen (Source)Anatomical Location / LateralityCollection Method / Volume Collection TimeReceived Time04/18/2025 10:10 AM EDT04/18/2025 10:15 AM EDT Narrative [facility]IN[facility]YNC - 04/19/2025 7:09 AM EDT Authorizing ProviderResult TypeResult StatusCorey Heike DOCLINISYNCFinal Result Performing OrganizationAddressCity/State/ZIP CodePhone Number CLINISYNC [facility] * (ABNORMAL) ALL CBC WITH AUTO DIFF (04/18/2025 10:10 AM EDT)ComponentValueRef RangeTest MethodAnalysis TimePerformed AtPathologist SignatureTBH WBC4.84.0 - 11.0 10 3/uLTBHTBH RBC4.594.20 - 5.40 10 6/uLTBHTBH HGB14.612.0 - 16.0 g/dLTBH TBH HCT42.836.0 - 48.0 %TBHTBH MCV93.281.0 - 99.0 fLTBHTBH MCH31.826.7 - 34.0 pgTBHTBH MCHC34.129.9 - 35.2 g/dLTBHTBH RDW11.411.0 - 15.0 %TBHTBH TDX943391 - 450 10 3/uLTBHTBH MPV11.09.5 - 13.5 [...] DateEnd Date Zenon Alberts DO [address] [place] [address] PCP - GeneralInternal Medicine03/10/25
--- OUTSIDE RECORDS SUMMARY | 2025-06-22 07:45 | XMS_ITS | CCD ---
Author Organization [facility] Care Team Providers Care Reinsurance Claim Analyst Name Role Phone Arlene Negro Unavailable Jaya [...] MATA Primary Care Unavailable HEMEYER ., DR MAAT Consulting Unavailable MISC, DR HELLER Admitting Unavailable [...] HEMEYER ., DR MATA Primary Care Unavailable [place], DR DARA Ledezma Consulting Unavailable MISC, DR [...] HEMEYER ., DR MATA Primary Care Unavailable HEIKE ., DR HUFF [...] Primary Care Provider DAVID Holliday Attending Provider [phone] Analia Holliday CNP Primary Care Provider Analia [...] Unavailable Gabino Owen MD Primary Care Provider [phone] Jennifer Frazier MD Primary Care Provider Kyree Stinson MD Primary Care Provider Kyree Stinson MD Unavailable Unavailable Primary Care Provider UnavailSEEMA Peña Referring Unavailable KAPLE, ANALIA M Primary Care Unavailable MADHU CAUSEY Referring Unavailable KAPLE, ANALIA M Primary Care Unavailable NAE IBARRA Referring Unavailable JENNIFER FRAZIER Primary Care Unavailable Ana Bolton Attending Unavailable Ana Bolton Admitting Unavailable Analia Dennis Attending Unavailable Analia Dennis Admitting Unavailable Rohrbacher Analia GALDAMEZ Attending Provider [phone] PAULA HUGGINS Attending Unavailable Unavailable Primary Care [...] TypeDate of OnsetReaction(s) FacilityNitroimidazoles (antibiotic) (1 source)metroNIDAZOLEDrug Ziyhnei41-66-6999Fzobub Status Change, Diarrhea, GI Upset, Hives, Other: See Comments, Rash, Shortness of Breath, Unknown, Vomiting [facility] (20 sources)metroNIDAZOLE; Translations: [METRONIDAZOLE]Drug Jqcpfbz31-79-2204 Mental Status Change, Diarrhea, GI Upset, Hives, Other: See Comments, Rash, Shortness of Breath, Unknown, [facility] (1 source)metroNIDAZOLEDrug Kzkpaop65-41-0665[facility] (8 sources)VancomycinDrug AllergySaint [facility]'s Hospital Quick2LAUNCH Other (1 source)metroNIDAZOLEDrug Nydoswk95-03-4111TicncclcuSelect [facility] (1 source)VancomycinDrug Hzezwsv50-03-9449SywgyfgtzSelect [facility] Medications Current Medications MedicationDrug Class(es)DatesSig (Normalized)Sig (Original)cholecalciferol, vitamin D3, (VITAMIN D3 ORAL) (2 sources)take 1 tablet by mouth in the morningcholecalciferol, vitamin D3, (VITAMIN D3 ORAL) Take 1 tablet by mouth in the morning. Activecolestipol hydrochloride 1000 mg oral tablet (2 sources)Bile Acid SequestrantStart: 09-05-2024 End: 78-59-3745ymoa 2 tablets by mouth once dailycolestipol (COLESTID) 1 gram tablet Take 2 tablets by mouth once daily. 60 tablet 2 09/09/2024 12/08/2024 Activedicyclomine hydrochloride 20 mg oral tablet (20 sources)AnticholinergicStart: 03-14-2024 End: 01-35-9803gmrd 1 tablet by mouth twice dailydicyclomine (BENTYL) 20 mg tablet Take 1 tablet by mouth two times a day. 60 tablet 2 03/14/2024 06/12/2024 ActiveStart: 07-37-1456henz 1 capsule by mouth every twenty-four hours as neededdicyclomine (Bentyl) 10 mg capsule Take 1 capsule (10 mg) by mouth once daily as needed. 11/29/2023ctiveStart: 67-44-5272ibgn 1 capsule by mouth three times daily as neededDicyclomine 10 mg capsule Active 10 MG PO Three times daily as needed November 29, 2023 12:00am FreeTextSig: TAKE 1 CAPSULE BY MOUTH 3 TIMES A DAY NEEDED; Note: Source Status: Taking; Refills: 3; Qty:90 Capsule; Provider: Dereje Schaefer ( )Start: 11-22-2022 End: 12-89-6214sypb 1 capsule by mouth every eight hours as neededdicyclomine (BENTYL) 10 mg capsule Take 10 mg by mouth three times daily as needed. 0 11/22/2022 02/06/2023 DiscontinuedStart: 03-15-2022 End: 11-08-6200romz 1 tablet by mouth every eight hoursdicyclomine (BENTYL) 20 mg tablet Take 1 tablet by mouth q 8 HR. 0 03/15/2022 ActiveComment on above: Take 10 mg by mouth three times daily as needed.Take 1 tablet by mouth q 8 HR. escitalopram 10 mg oral tablet (20 sources)Serotonin Reuptake InhibitorStart: 03-19-2024 End: 08-48-7726wioc 1 tablet by mouth once dailyEscitalopram Oxalate 10 mg tablet Active 10 MG PO Daily 90 October 27, 2024 11:27amStart: 01-16-2024 End: 91-87-7279hkuy 1 tablet by mouth once dailyEscitalopram Oxalate 5 mg tablet Discontinued 5 MG PO Daily 90 January 16, 2024 12:00am March 19, 2024 1:45pmStart: 45-56-9278kwih 0.5 tablet by mouth once dailyescitalopram (Lexapro) 10 mg tablet Take 0.5 tablets (5 mg) by mouth once daily. 11/29/2023 Active Start: 11-29-2023 End: 67-48-1341yxyr 1 tablet by mouth once dailyEscitalopram Oxalate Discontinued 5 MG PO Daily November 29, 2023 11:36am January 16, 2024 10:59pm FreeTe xtSi tablet Orally Once a day; Note: Source Status: Taking; Provider: Miya Helms ( )Start: 11-29-2023 End: 93-62-3688miuf 1 tablet by mouth once dailyEscitalopram Oxalate [...] 200 mg oral tablet (8 sources)Macrolide AntibacterialStart: 27-68-3912wwrl 1 tablet by mouth every twelve hoursDificid 200 MG 1 tablet Orally Twice a day for 10 days Mar, Activetake 1 tablet by mouth every twelve hoursDificid 200 MG 1 tablet Orally Twice a day PT PICKS THE SCRIPT TODAY Activegabapentin 100 mg oral capsule (10 sources)Anti-epileptic AgentStart: 04-30-2024 End: 88-78-4117pzza 1 tablet by mouth once daily at [...] disintegrating oral tablet (20 sources)Serotonin-3 Receptor AntagonistStart: 81-34-1841Tpvyhnjkmhk 4 mg tablet,disintegrating Active 4 MG PO as needed November 12, 2024 12:00amStart: 32-65-8999ykdytpbucpv (ZOFRAN) 4 mg tablet Take 4 mg by mouth as needed. 09/01/2022 ActiveComment on above:Take 4 mg by mouth as needed.predniSONE 20 mg oral tablet (13 sources)Start: 04-04-2023 End: 05-75-4602erqc 1 tablet by mouth once dailypredniSONE (DELTASONE) 20 mg tablet Take 1 tablet by mouth once daily for 10 days. 10 tablet 0 04/04/2023 04/14/2023 ActiveStart: 03-13-2023 End: 45-88-9810xgvq 1 tablet by mouth once dailypredniSONE (DELTASONE) 20 mg tablet Take 1 tablet by mouth once daily for 14 days. 14 tablet 0 03/13/2023 03/27/2023 ActiveStart: 10-31-2020 End: 60-33-8767dsts 1 tablet by mouth once daily at mealtimePrednisone 50 mg tablet Discontinued 50 MG PO Daily 5 October 31, 2020 12:00am November 29, 2023 11:18am administer with food or milkComment on above:Take 1 tablet by mouth once daily for 14 days.Take 1 tablet by mouth once daily for 10 days.vancomycin 125 mg oral capsule (2 sources)Glycopeptide AntibacterialStart: 07-14-2024 End: 92-86-5981iuwt 1 capsule by mouth three times dailyvancomycin (VANCOCIN) 125 mg capsule Indications: Clostridium difficile infection Take 1 capsule by mouth three times a day for 10 days. 30 capsule 07/14/2024 07/24/2024 Active Completed/Discontinued Medications MedicationDrug Class(es)DatesSig (Normalized)Sig (Original)amitriptyline hydrochloride 25 mg oral tablet (20 sources)Tricyclic AntidepressantStart: 12-28-2023 End: 30-65-4811bugh 1 tablet by mouth once daily at bedtimeamitriptyline (ELAVIL) 25 mg tablet take 1 tablet by mouth everyday at bedtime 90 tablet 1 03/25/2024 04/30/2024 DiscontinuedStart: 05-22-2023 End: 65-09-9992qfak 1 tablet by mouth once daily at bedtimeamitriptyline (ELAVIL) 25 mg tablet Take 1 tablet by mouth daily at bedtime. 30 tablet 0 Discontinued (Discontinued by Patient)Comment on above:Take 1 tablet by mouth daily at bedtime.amylase [id number] unt / lipase 70400 unt / protease 67964 unt delayed release oral capsule (16 sources)Start: 06-06-2023 End: 95-21-3470mtqu 2 capsules by mouth twice daily at mealtime gelffe-domisffs-kgecjgp (CREON) 24,000-76,000 -120,000 unit delayed release capsule Take 2 capsulesby mouth two times a day with meals. 120 capsule 0 06/06/2023 10/22/2023 DiscontinuedStart: 02-06-2023 End: 32-47-2417lffd 1 capsule by mouth three times daily at mealtime qjndyb-nroctrzt-gavzvpa (ZENPEP) 40,000-126,000- 168,000 unit delayed release capsule [...] oral capsule (8 sources)Anticholinergic, BenzodiazepineStart: 03-13-2023 End: 11-94-1474yala 1 capsule by mouth three times daily [...] oral capsule (8 sources)Vitamin DStart: 11-29-2023 End: 75-66-0311ruet 1 capsule by mouth once dailyCholecalciferol (Vitamin D3) 50 mcg (2,000 unit) capsule Discontinued 2000 UNIT PO Daily November 29, 2023 12:00am March 19, 2024 1:34pm FreeTextSi capsule Orally Once a day; Note: Source Status: Start; Refills: 4; Provider: Miya Helms MStart: 35-49-4330zmtt 1 capsule by mouth every twenty-four hoursVitamin D3 50 MCG (2000 UT) 1 capsule Orally Once a day for 30 days May, Activecyclobenzaprine hydrochloride 10 mg oral tablet (8 sources)Muscle RelaxantStart: 10-31-2020 End: 58-25-1975qpdv 1 tablet by mouth three times daily as needed for muscle spasmsCyclobenzaprine 10 mg tablet Discontinued 10 MG PO Three times daily as needed for muscle spasm October 31, 2020 12:00am March 19, 2024 1:35pm diclofenac sodium 50 mg delayed release oral tablet (8 sources)Nonsteroidal Anti-inflammatory DrugStart: 10-31-2020 End: 38-65-1277skjh 1 tablet by mouth every twelve hours as needed for pain Diclofenac Sodium 50 mg tablet,delayed release (DR/EC) Discontinued 50 MG PO Q12H as needed for pain October 31, 2020 12:00am November 29, 2023 11:18am ergocalciferol 1.25 mg oral capsule (10 sources)Provitamin D2 CompoundStart: 12-14-2022 End: 58-35-9777ncmwyzxqlujznk 50,000 unit capsule (VITAMIN D2, DRISDOL) Indications: [...] mg oral tablet (8 sources)AntihistamineStart: 10-31-2020 End: 10-35-1703zesv 1 tablet by mouth every six hours as needed for anxiety Hydroxyzine Hcl 25 mg tablet Discontinued 25 MG PO Q6H as needed for anxiety October 31, 2020 12:00am March 19, 2024 1:35pm12 hr hyoscyamine sulfate 0.375 mg extended release oral tablet (5 sources)Start: 12-12-2023 End: 46-03-2318mbzx 1 tablet by mouth twice dailyhyoscyamine SR (LEVBID) 0.375 mg 12 hr tablet Take 1 tablet by mouth two times a day. 60 tablet 2 12/13/2023 12/28/2023 DiscontinuedStart: 02-06-2023 End: 86-43-0364wfan 1 tablet by mouth twice dailyhyoscyamine SR (LEVBID) 0.375 mg 12 hr tablet Indications: Generalized abdominal pain , Chronic pancreatitis, unspecified pancreatitis type (HCC) , Intestinal malabsorption, unspecified type Take 1 tablet by mouth twice daily. 60 tablet 2 02/06/2023 05/07/2023 Active Comment on above:Take 1 tablet by mouth twice daily.iv contrast (will be provided with radiology test) (2 sources)Start: 06-13-2023 End: 06-75-1826trpluf 1 dose intravenously onceiv contrast (will be [...] Each 0 06/13/2023 06/14/2023 ExpiredStart: 03-16-2023 End: 40-14-9835fj contrast (will be provided with radiology test) [...] (8 sources)Antiarrhythmic, Amide Local AnestheticStart: 10-31-2020 End: 10-35-3858uqina 1 dose topically once daily as needed for painLidocaine 5 % adhesive patch,medicated Discontinued 1 PATCH TOPICAL Daily as needed for pain October 31, 2020 12:00am November 29, 2023 11:18am leave on most painful area for up to 12 hrspantoprazole 40 mg delayed release oral tablet (10 sources)Proton Pump InhibitorStart: 01-22-2024 End: 55-96-1042sadn 1 tablet by mouth once dailypantoprazole DR (PROTONIX) 40 mg tablet TAKE 1 TABLET BY MOUTH EVERY DAY 90 tablet 1 01/22/2024 04/30/2024 DiscontinuedStart: 07-56-0811ygdy 1 tablet by mouth once dailypantoprazole DR (PROTONIX) 40 mg tablet Take 1 tablet by mouth once daily. 30 tablet 2 12/28/2023 ActiveProgesterone 200 MG suppository (6 sources)Start: 06-23-2024 End: 12-69-3303Qafcunnhlecu 200 MG suppository Indications: History of miscarriage Insert 200 mg into the vagina at bedtime Insert suppository vaginally every night at bedtime until 12 weeks gestation 30 suppository 3 06/23/2024 07/03/2024 DiscontinuedStart: 06-23-2024 End: 64-18-5535Fmpqftcprnay 200 MG suppository Indications: History of miscarriage Insert 200 mg into the vagina at bedtime Insert suppository vaginally every night at bedtime until 12 weeks gestation 30 suppository 3 06/23/2024 07/23/2024 Alyjbt7151 ml sodium chloride 9 mg/ml injection (1 source)Start: 09-03-2024 End: 32-99-3033udmz 30 mL intravenously every hour30 mL/hr, INTRAVENOUS, CONTINUOUS, Starting on Sun09/03/24 at 1030, Until Ami 09/04/24 at 0420, Prepr oceduresucralfate 1000 mg oral tablet (2 sources)Aluminum ComplexStart: 12-24-2023 End: 86-93-8265tkzh 1 tablet by mouth three times dailysucralfate (CARAFATE) 1 gram tablet Take 1 tablet by mouth three times a day. 90 tablet 2 12/24/2023 12/28/2023 Discontinuedsulfamethoxazole 800 mg / trimethoprim 160 mg oral tablet (1 source)Dihydrofolate Reductase Inhibitor Antibacterial, Sulfonamide AntimicrobialStart: 10-24-2024 End: 89-49-5169vmmq 1 tablet by mouth twice dailySulfamethoxazole-Trimethoprim 800-160 mg tablet Discontinued 1 TAB PO Twice daily 6 October 24, 2024 12:00am November 12, 2024 10:03am Problems Active Problems Problem ClassificationProblemDateDocumented DateEpisodic/ChronicAnxiety disorders (20 sources)Generalized anxiety disorder; Translations: [Generalized anxiety disorder]Onset: 22-87-1593ToaqofiYlnhbf; peripheral; and visceral artery aneurysms (1 source)Carotid artery aneurysm; Translations: [Aneurysm of carotid artery] 46-95-3843LbnvgggGfmgodu tract disease (1 source)Cholecystitis, unspecified; Translations: [Cholecystitis]Onset: 44-67-6520OqsadtlpMflcvxg dysrhythmias (1 source)Supraventricular tachycardia; Translations: [Other supraventricular tachycardia (HCC)]63-34-3696ResfqveVukipqibkreny and procreative management (2 sources)Patient encounter status; Translations: [Encounter for procreative management, unspecified]24-30-2353VnzxazubCquydqyvtl disorders (9 sources)Gastroesophageal reflux disease; Translations: [Gastro-esophageal reflux disease without esophagitis]01-24-4081JzhivriOfykv valve disorders (4 sources)Heart murmur; Translations: [Cardiac murmur, unspecified]03-19-2024 EpisodicImmunizations and screening for infectious disease (4 sources)Contact with and (suspected) exposure to other viral communicable diseases; Translations: [Encounter for screening for human papillomavirus (HPV)] Onset: 05-05-2021 Resolved: 74-09-7397SmkbqwyyFcipwrc and fatigue (20 sources)Chronic fatigue, unspecified; Translations: [Fatigue]Onset: 72-71-5341SyrgoeyXbtdidsvc disorders (12 sources)Irregular menstruation, unspecified; Translations: [Disorder of menstruation]Onset: 175792-40-9355PywjgmjFupk disorders (4 sources)Depressive disorder; Translations: [Depression]Onset: 04-16-2024 20-21-9709EjnvsglEuvecbsjl of unspecified nature or uncertain behavior (2 sources)Neoplastic disease; Translations: [Neoplasm of unspecified behavior of bone, soft tissue, and skin]94-42-7026MysipugkCrgbgvyofuy deficiencies (13 sources)Vitamin D deficiency; Translations: [Vitamin D deficiency, unspecified]Onset: 17-43-0659ZjdyiknFaoqibzknrp deficiencies (2 sources)Cobalamin deficiency; Translations: [Deficiency of other specified B group vitamins]Onset: 391900-25-0771WazvabpoGljwg aftercare (1 source)Surgical follow-up; Translations: [Encounter for follow-up examination after completed treatment for conditions other than malignant neoplasm] 91-33-3239VvrufgmkPhejl aftercare (2 sources)H/O: miscarriage; Translations: [Encounter for other specified aftercare]87-76-8739ZosjfhnzJbjqf aftercare (6 sources)H/O: high risk medication; Translations: [Other termite inspector (current) drug therapy]Onset: 680644-45-1559LtzpqoguNrfhk circulatory disease (7 sources)Celiac artery compression syndrome; 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]03-38-0480RjpurizAakjb connective tissue disease (8 sources)Pain in upper limb; Translations: [Pain in arm, unspecified] 72-26-9422CdnfxalbNanqf connective tissue disease (2 sources)Neuropathy; Translations: [Neuralgia and neuritis, unspecified] 53-84-8687IqicuwhfYnndx diseases of kidney and ureters (1 source)Cyst of kidney, acquired; Translations: [CYST OF KIDNEY ACQUIRED] Onset: 03-84-6097PobfoojaXlzlf disorders of stomach and duodenum (3 sources)Disorder of function of stomach; Translations: [Disease of stomach and duodenum, unspecified]30-55-8312QdyzdpzoPdtjw disorders of stomach and duodenum (1 source)Disease of stomach and duodenum, unspecified; Translations: [Dyspepsia and disorder of function of stomach]Onset: 85-05-2833VdblgrsbBtxbu endocrine disorders (2 sources)Polycystic ovary syndrome; Translations: [Polycystic ovarian syndrome]34-91-4111UzdpweiWtyen female genital disorders (2 sources)Abnormal uterine bleeding; Translations: [Abnormal uterine and vaginal bleeding, unspecified]84-26-9536YvpfszoGbtax gastrointestinal disorders (20 sources)Irritable bowel syndrome with diarrhea; Translations: [Irritable bowel syndrome with diarrhea]Onset: 282368-06-9976YtfsaznUcbot gastrointestinal disorders (10 sources)Irritable bowel syndrome with diarrhea; Translations: [Irritable bowel syndrome]Onset: 97-63-6996EplfudzMpdaw gastrointestinal disorders (1 source)Intestinal malabsorption; Translations: [Intestinal malabsorption, unspecified]05-88-4281UhjruiaGiiqj gastrointestinal disorders (1 source)Intestinal malabsorption, unspecified; Translations: [Intestinal malabsorption, unspecified type]Onset: 70-00-0925HyetpbwDyfmu gastrointestinal disorders (8 sources)Diarrhea; Translations: [Diarrhea, unspecified]EpisodicOther gastrointestinal disorders (10 sources)Diarrhea, unspecified; Translations: [Diarrhea]Onset: 10-27-2022 EpisodicOther gastrointestinal disorders (4 sources)Personal history of other diseases of the digestive system; Translations: [PERSONAL HX OTH DZ DIGESTIVE SYSTEM]Onset: 26-18-6520Zgvblqwl Other gastrointestinal disorders (3 sources)History of pancreatitis; Translations: [Personal history of other diseases of the digestive system]70-57-5703FofotkyoUggfu gastrointestinal disorders (1 source)Change in bowel habit; Translations: [Change in bowel habits]Onset: 52-50-4486MoephtgeIbdqz infections; including parasitic (2 sources)Personal history of other infectious and parasitic diseases; Translations: [Personal history of other infectious and parasitic diseases] Onset: 973117-40-9727YaglvkbzIdopm infections; including parasitic (1 source)History of Clostridium difficile intestinal infection; Translations: [Personal history of other infectious and parasitic diseases]64-73-1687Lblczglb Other infections; including parasitic (4 sources)History of bacterial infection; Translations: [Personal history of other infectious and parasitic diseases]47-87-0199InynqgedNgyfv nutritional; endocrine; and metabolic disorders (5 sources)Underweight; Translations: [UNDERWEIGHT]Onset: 44-85-6748Spqjmznp Other nutritional; endocrine; and metabolic disorders (4 sources)Abnormal weight loss; Translations: [ABNORMAL WEIGHT LOSS]Onset: 60-18-3758CslnxrdfQxdum screening for suspected conditions (not mental disorders or infectious disease) (20 sources)Radiology result abnormal; Translations: [Abnormal findings on diagnostic imaging of other specified body structures]Onset: 12-08-2022 31-37-3898KguzsahRafac screening for suspected conditions (not mental disorders or infectious disease) (10 sources)Abnormal findings on diagnostic imaging of other abdominal regions, including retroperitoneum; Translations: [Other specified abnormal findings of blood chemistry]Onset: 15-82-1434MxndueqeHzooc skin disorders (1 source)Nonscarring hair loss, unspecified; Translations: [NONSCARRING HAIR LOSS UNSPECIFIED]Onset: 96-10-2483EnbtotorIrdqfgbxkg disorders (not diabetes) (11 sources)Chronic pancreatitis; Translations: [Other chronic pancreatitis] Onset: 764556-39-6904McumbcfYnbjcqeeff disorders (not diabetes) (1 source)Acute pancreatitis without necrosis or infection, unspecifiedEpisodic Residual codes; unclassified (1 source)FH: Cardiovascular disease; Translations: [Family history of ischemic heart disease and other diseases of the circulatory system]67-99-5765Gzeqrqai Unclassified (1 source)APPOINTMENT JQAXBXXCS73-82-7423Qdvcntjddmjb (1 source)Other supraventricular tachycardia (HCC); Translations: [Other supraventricular tachycardia (HCC)]Onset: 08-52-3732Jqkuqiy tract infections (1 source)Urinary tract infection, site not specified; Translations: [Urinary tract infection, site not specified]Onset: 52-38-0635Fpoyyarn Past or Other Problems Problem ClassificationProblemDateDocumented DateEpisodic/ChronicAbdominal pain (20 sources)Right upper quadrant pain; Translations: [Right upper quadrant pain] Onset: 27-36-5579FnuknnnyFntphuxp reactions (20 sources)Urticaria; Translations: [Urticaria, unspecified]Onset: 12-09-2021 32-52-6962SpbigcaxCejfjjn disorders (20 sources)Organic anxiety disorder; 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]Onset: 452326-17-4644KvknejqbFsnuutq dysrhythmias (20 sources)Palpitations; Translations: [Palpitations]Onset: 11-07-2023 41-88-4134JvulcoxmVbjhgshfodde of device; implant or graft (11 sources)Pain; Translations: [Pain due to genitourinary prosthetic devices, implants and grafts, initial encounter]Onset: 234304-90-9674TtzpwwxnBvsgb of unknown origin (4 sources)Fever, unspecified; Translations: [FEVER UNSPECIFIED]Onset: 81-71-4110ZjrghlatZoepk and electrolyte disorders (1 source)Dehydration; Translations: [DEHYDRATION]Onset: 94-63-2882Dhxwqdrm Gastritis and duodenitis (11 sources)Bile-induced gastritis; Translations: [Other gastritis without bleeding]Onset: 793670-07-2763MiragjceGwoytvhbhlpsm symptoms and ill- defined conditions (16 sources)Personal history of urinary (tract) infections; Translations: [Dysuria]Onset: 861316-55-9357NsbtdsvjOefnlsvaax infection (20 sources)Clostridial enteric disease; 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 due to Clostridium difficile, not specified as recurrent]Onset: 09-27-2021 Resolved: 54-19-4995ZatdfwhcYjknxck and fatigue (4 sources)Weakness; Translations: [WEAKNESS]Onset: 95-43-0174Wbldnrcg Miscellaneous mental health disorders (11 sources)Anxiety about body function or health; Translations: [Other symptoms and signs involving emotional state]Onset: 52-21-889899820207-41-6416OfbhzedqIqapmp and vomiting (17 sources)Nausea; Translations: [Nausea]Onset: 84-36-4726IbkwwzodEysbhmpbgyrdh gastroenteritis (4 sources)Noninfective gastroenteritis and colitis, unspecified; Translations: [NONINFECTIVE GE AND COLITIS UNS]Onset: 47-49-3590VpwzxaixQplts connective tissue disease (20 sources)Pain of bilateral upper limbs; Translations: [Pain in right arm] Onset: 010290-00-0872LpriotwwXzexs diseases of veins and lymphatics (11 sources)Venous stenosis; Translations: [Compression of vein]Onset: 024148-35-5060SijypglzOqzce gastrointestinal disorders (13 sources)Altered bowel function; Translations: [Other specified symptoms and signs involving the digestive system and abdomen]Onset: EpisodicOther gastrointestinal disorders (11 sources)Borborygmi; Translations: [Other specified symptoms and signs involving the digestive system and abdomen]Onset: 137893-80-4357Gmgybxxi Other infections; including parasitic (13 sources)Disorder due to infection; Translations: [Unspecified infectious disease]Onset: 827857-85-3432GniyrgelNlrou infections; including parasitic (20 sources)Recurrent infectious disease; Translations: [Unspecified infectious disease]Onset: 071493-78-0607CenffzsbXsqjc lower respiratory disease (1 source)Difficulty breathing; Translations: [Other abnormalities of breathing] 73-16-6453YoltyanmDwjjl non-traumatic joint disorders (20 sources)Pain in left knee; Translations: [Pain in joint, lower leg]Onset: 871258-02-4770RpuzpztoBvamb non-traumatic joint disorders (20 sources)Chronic pain of left upper limb; Translations: [Pain in left shoulder]Onset: 137408-09-7931OxixcyjkTrmwq nutritional; endocrine; and metabolic disorders (11 sources)Underweight; Translations: [Underweight]Onset: EpisodicOvarian cyst (11 sources)Cyst of left ovary; Translations: [Unspecified ovarian cyst, left side]Onset: 099831-28-8662VqiquhylDvwyiozq codes; unclassified (1 source)Acquired absence of other specified parts of digestive tract; Translations: [Other postprocedural status]72-61-8824IywqzxibAfjjtuwwvsp; intervertebral disc disorders; other back problems (20 sources)Neck pain; Translations: [Cervicalgia]Onset: 362087-87-1226 EpisodicSpontaneous (11 sources)Miscarriage; Translations: [Complete or unspecified spontaneous without complication]Onset: [id number]i (6 sources)Onset: [id number] Results Test NameValueInterpretationReference RangeFacilityALL FOLLICLE STIMULATING HORMONEon 17-53-0358VHT0.7. mIU/mLNOMS HealthcareComment on above:Adult Female Range Follicular phase 3.5 - 12.5 Ovulation phase 4.7 - 21.5 Luteal phase 1.7 - 7.7 Postmenopausal 25.8 - 134.8 Performed at: [address] [id number] Hazardous Materials Waste Technician: Kai Schuster PhD, Phone: [phone] ALL LUTEINIZING HORMONEon 94-83-3090QJXSCNALKOA HORMONE(LH)11.6. mIU/mLNOMS HealthcareComment on above:Adult Female Range Follicular phase 2.4 - 12.6 Ovulation phase 14.0 - 95.6 Luteal phase 1.0 - 11.4 Postmenopausal 7.7 - 58.5 No Panel Informationon 27-06-6116CHDDQBJNKHOCA HealthcareALL THYROXINE (T4) FREE on 84-44-1589Jinp T4 [Mass/Vol]0.97 ng/dL0.76 - 1.46 ng/dLNORay County Memorial Hospital CLINISYNCNONY HealthcareMLR HEMOGLOBIN A1Con 64-90-9728Fyyllwn [Mass/Vol]100 mg/dLNORay County Memorial HospitalItfvbthsqzLkP9k (Bld) [Mass fraction]5.1 %4.5 - 6.2 %[facility] Comment on above:ADA RECOMMENDED LIMIT 4.0 - 6.0 ADA THERAPEUTIC TARGET < 7.0 ACTION SUGGESTED > 7.0 CLINPerry County Memorial HospitalNo Panel Informationon 22-72-1622Owgwqgmwbhmef Test COMMENT.[facility] NorthComment on above:Test Ordered: [id number] C difficile Toxins A+B, EIAC difficile Toxins A+B, EIA Negative CB Reference Ra nge: NegativePerformed at: - [facility] [address] [id number] Director: Kai Schuster PhD, Phone: [phone] Auto (Bld) [#/Vol]on 88-82-7231Ncgzqprng (Bld) [#/Vol]Automated basophil count0.0-0.1 [facility] NorthBasophils/100 WBC Auto (Bld)on 11-04-2024 Basophils/100 WBC (Bld)Automated basophil %0.2-2.0[facility] NorthEosinophils/100 WBC Auto (Bld)on 08-65-2262Pfucddzcfgx/100 WBC (Bld) Automated eosinophil %0.9-7.0[facility] NorthErythrocyte distribution width Auto (RBC) [Ratio]on 69-01-0513Vkryvsjovjc distribution width (RBC) [Ratio]Erythrocyte distribution width [Ratio] by Automated count11.0-15.0 [facility] NorthHematocrit Auto (Bld) [Volume fraction]on 69-41-2730Jhihhrewpo (Bld) [Volume fraction]Hematocrit [Volume Fraction] of Blood by Automated count36.0-48.0[facility] NorthHemoglobin [Mass/volume] in Bloodon 41-06-5236Ebddvieiaj (Bld) [Mass/Vol]Hemoglobin [Mass/volume] in Blood12.0-16.0[facility] NorthLaboratory - Chemistry and Chemistry - challengeon 37-52-3098Eivxejevy Ql (U)NegativeNEGATIVE [facility] NorthGlucose (U) [Mass/Vol]NegativeNEGATIVESelect Medical Specialty Hospital - [facility] NorthKetones Ql (U)15 mg/dLAbnormalNEGATIVESelect Medical Specialty Hospital - [facility] NorthpH (U)6.0 [pH]5.0-9.0Veterans Health Administrationpecific gravity (U) [Rel density]1.0201.005-1.025[facility] Urobilinogen Qn (U)0.2 {Trini'U}/dL0.2-1.0[facility] Lipase [Catalytic activity/Vol]28.0 U/L16.0-77.0[facility] NorthMagnesium [Mass/Vol]1.9 mg/dL1.8-2.4FSt. Mary's Medical [facility], [facility] Laboratory - Hematology and Cell countson 63-84-0105Koqhqrwo granulocytes/100 WBC (Bld)0.3 %0.0-0.5FSt. Mary's Medical Center, Ironton CampusLaboratory - Specimen informationon 00-63-6623Vbboalhzjf (U)CLEARCLEARFSt. Mary's Medical Center, Ir[facility] CampusColor (U)LT. YELLOWYELLOWSelect Medical Specialty Hospital - Cincinnati NorthLaboratory - Urinalysison 14-16-0827Axvmzlqrl esterase Test strip Ql (U)NegativeNEGATIVE [facility] NorthNitrite Ql (U)NegativeNEGATIVESelect Medical Specialty Hospital - [facility] NorthProtein Ql (U)TRACE mg/dLNEG/TRACESelect Medical Specialty Hospital - [facility] NorthLeukocytes [#/volume] corrected for nucleated erythrocytes in Blood by Automated counon 20-00-4040PAD corrected for nucl RBC Auto (Bld) [#/Vol]Leukocytes [#/volume] corrected for nucleated erythrocytes in Blood by Automated coun4.0-11.0[facility] NorthLymphocytes Auto (Bld) [#/Vol]on 49-94-4679Qztrkomigef (Bld) [#/Vol]Lymphocytes [#/volume] in Blood by Automated count1.2-3.8[facility] NorthLymphocytes/100 WBC Auto (Bld)on 40-14-0069Qefxyunautr/100 WBC (Bld)Lymphocytes/100 leukocytes in Blood by Automated count20.5-60.0[facility] NorthMCH Auto (RBC) [Entitic mass]on 00-01-8079NKL (RBC) [Entitic mass]MCH [Entitic mass] by Automated count26.7-34.0[facility] NorthMCHC Auto (RBC) [Mass/Vol]on 95-40-5396ROWV (RBC) [Mass/Vol]MCHC [Mass/volume] by Automated vbshrXduk42.9-35.2FSt. Mary's Medical Center, Ironton CampusMCV Auto (RBC) [Entitic vol] on 19-09-8532ILF (RBC) [Entitic vol]MCV [Entitic volume] by Automated count 81.0-99.0[facility] NorthMonocytes Auto (Bld) [#/Vol]on 93-79-3522Prekywmqe (Bld) [#/Vol]Automated blood monocyte count0.3-0.8[facility] NorthMonocytes/100 WBC Auto (Bld)on 94-87-2099Nlqfslbss/100 WBC (Bld)Automated monocyte %1.7-12.0[facility] Neutrophils Auto (Bld) [#/Vol]on 40-95-4295Oesrnztytzv (Bld) [#/Vol]Neutrophils [#/volume] in Blood by Automated count1.4-6.5FSt. Mary's [facility] Neutrophils/100 WBC Auto (Bld)on 92-10-2439Dlterybwsih/100 WBC (Bld)Automated neutrophil %43.0-75.0[facility] NorthNo Panel Informationon 33-84-9068Ifbbr Microscopic ReviewNOSelect Medical Specialty Hospital [facility] NorthUrine Occult BloodNegativeNEGATIVESelect Medical Specialty Hospital [facility] NorthEosinophils # (Auto)0.1 10 3/uL0.0-0.7FSt. Mary's Medical Center, [facility] CampusHuman Chorionic Gonadotropin, QualNegativeNEGATIVESelect Medical Specialty Hospital [facility] NorthImmature Granulocyte # (Auto)0.02 10 3/uL0.00-0.03[facility] Troponin I High Nnwlsaijfjx89.3 pg/mL4.0-51.3FSt. Mary's Medical [facility] Comment on above:CUT-OFF POINTS HAVE BEEN ESTABLISHED [...] INFORMATION.Platelet mean volume Auto (Bld) [Entitic vol]on 07-07-3258Rbcwpjtz mean volume (Bld) [Entitic vol] Platelet mean volume [Entitic volume] in Blood by Automated count9.5-13.5 [facility] NorthPlatelets Auto (Bld) [#/Vol]on 11-04-2024 Platelets (Bld) [#/Vol]Platelets [#/volume] in Blood by Automated alzav396-984 [facility] NorthRBC Auto (Bld) [#/Vol]on 24-35-0241BMV (Bld) [#/Vol]Erythrocytes [#/volume] in Blood by Automated count4.20-5.40[facility] NorthLaboratory - Chemistry and Chemistry - challengeon 69-11-7632Smsbcyxwc Ql (U)NegativeSelect Medical Specialty Hospital - [facility] NorthGlucose (U) [Mass/Vol]NegativeSelect Medical Specialty Hospital - [facility] NorthKetones Ql (U)Negative [facility] NorthpH (U)5.0 [pH][facility] Specific gravity (U) [Rel density]1.020[facility] Urobilinogen (U) [Mass/Vol]0.2 mg/dLSelect Medical Specialty Hospital - [facility] NorthLaboratory - Specimen informationon 02-82-7789Tzdiqtecen (U)clearSelect Medical Specialty Hospital - [facility] NorthColor (U)yellowSelect Medical Specialty Hospital - [facility] NorthLaboratory - Urinalysison 33-23-1911Gwtwwstut esterase Test strip Ql (U)NegativeSelect Medical Specialty Hospital - [facility] NorthNitrite Ql (U)NegativeSelect Medical Specialty Hospital - [facility] NorthProtein Ql (U)+++[facility] NorthNo Panel Informationon 69-83-8335Ajtbx Occult BloodNegativeSelect Medical Specialty Hospital - [facility] NorthANES POSTPROC EVALon 44-27-3606RVAQ POSTPROC EVALHNO ID: [id number] Author: MERRICK MELLO APRN.VULCANIZER RUBBER [employer]ATE Service: ? Author Type: Nurse Welder Tool [employer] Type: Anesthesia Postprocedure Evaluation Filed: 09/03/2024 10:48 Note Text: POST ANESTHESIA EVALUATION NOTE : 2000 Procedure Summary Date: 09/03/24 Room / Location: [facility] Anesthesia Start: 1026 Anesthesia Stop: 1043 Procedure: COLONOSCOPY DIAGNOSTIC Diagnosis: Generalized abdominal pain Change in bowel habits (Generalized abdominal pain) (Diarrhea) (Change in bowel habits) Scheduled Providers: Dara Butler Jr., DO; Merrcik Mello APRN.CRNA; Karla Ball, RN Responsible Provider: [...] September 03, 2024 TIME: 10:47 AM CSN: [id number] Community Hospital PRE-OPon 25-93-3131ASCN PRE-OPHNO ID: [id number] Author: MERRICK MELLO APRN.CRNA Service: ? Author Type: Nurse Welder Tool [employer] Type: Anesthesia Preprocedure Evaluation Filed: 09/03/2024 10:18 Note Text: ANESTHESIOLOGY DAY OF SURGERY NOTE : 2000 Procedure Information Date/Time: 09/03/24 1230 Scheduled providers: Dara Butler Jr., DO; Merrick Mello APRN.VULCAN[employer] RU[employer]; Karla Ball, clinical geneticist: COLONOSCOPY DIAGNOSTIC Location: [facility] Endoscopy [facility] Estimated body mass index is 19.74 kg/m? [...] 48 hours of Surgery/Procedure. SIGNATURE: Merrick Mello APRN.VULCANIZER RU[employer] PATIENT NAME: Chioma Alozno DATE: September 03, 2024 TIME: 10:18 AM CSN: [id number] Clinic Union Hospital 82-73-2084TscilgvoojjLapqbvrra ASC Gastrointestinal Endoscopy Patient Name: Chioma Alonzo Procedure Date: 09/03/2024 10:20 AM Date of : 2000 Admit Type: Outpatient Age: 23 Gender: Female Note Status: Finalized Attending MD: Dara Butler Jr, DO, [id number] Procedure: Colonoscopy Indications: Generalized abdominal pain, Diarrhea, [...] the patient. Procedure Code(s): --- Professional --- 44912, Colonoscopy, flexible; with biopsy, single or multiple Diagnosis Code(s): --- Professional --- R10.84, Generalized abdominal pain R19.7, Diarrhea, unspecified R19.4, Change in bowel habit CPT copyright 2020 [employer]. All rights reserved. The codes documented in this report are preliminary and upon press technician review may be revised to meet current compliance requirements. Attending Participation: I personally performed the entire procedure. MD Dara Egan Jr, DO 09/03/2024 10:46:48 AM This report has been signed electronically by Dara Butler Jr, DO Number of Addenda: 0 Note Initiated On: 09/03/2024 10:20 AM Procedure Start: 10:28:48 AM Procedure End: 10:42:27 AMNormalOhioHealth Grant [facility] Center sigmoidoscopy studyon 64-69-5839Xhjeylsma ASC Gastrointestinal Endoscopy Patient Name: Chioma Alonzo Procedure Date: 09/03/2024 10:20 AM Date of : 2000 Admit Type: Outpatient Age: 23 Gender: Female Note Status: Finalized Attending MD: Dara Butler Jr, DO, [id number] Procedure: Colonoscopy Indications: Generalized abdominal pain, Diarrhea, [...] the patient. Procedure Code(s): --- Professional --- 33423, Colonoscopy, flexible; with biopsy, single or multiple Diagnosis Code(s): --- Professional --- R10.84, Generalized abdominal pain R19.7, Diarrhea, unspecified R19.4, Change in bowel habit CPT copyright 2020 [employer]. All rights reserved. The codes documented in this report are preliminary and upon press technician review may be revised to meet current compliance requirements. Attending Participation: I personally performed the entire procedure. MD Dara Egan Jr, DO (more content not included)...PROVATIONMarietta Memorial HospitalRadiology Study observation (narrative)[facility] PHYSICALon 24-57-9010IHVSGID PHYSICALHNO ID: [id number] Author: DRAA BUTLER JR, DO Service: Gastroenterology Author Type: [...] September 03, 2024 TIME: 10:18 AM PAGER/CONTACT #:[facility]ht[facility]ula General HospitalHORTENCIA Gutierrez [id number] PROGHNO ID: [id number] Author: SERA GARNER RN Service: Nursing Author [...] Signed By: Sera Garner RN In Department: [facility] [place]NoOhioHealth Van Wert HospitalPathology biopsy report Ganga (Tiss)on 27-03-1838TILY REPORTNoOhioHealth Van Wert Hospital Comment on above:Order Comment: Specimen Type: TISSUE SPECIMENOrdering Facility: [facility] Address: [address] [place], [place] [address]Result Comment: Surgical Pathology Report Case: [id number] Authorizing Provider: Dara Butler Jr., DO Collected: 09/03/2024 10:39 AM Ordering Location: [facility] Endoscopy Received: 09/03/2024 11:57 PM [facility] Pathologist: Ana Ledesma MD Specimen: Colon, Biopsy, random colon, r/o microscopic colitisPerformed By: #### 26131-2 ####[facility] LABCLIA [id number] [address] OF [facility] LABCLIA [id number] [address] OF [facility] HEALTH SYSTEMFINAL DIAGNOSIS [facility] General HospitalComment on above:Order Comment: Specimen Type: TISSUE SPECIMENOrdering Facility: [facility] Address: [address] [place], [place] [id number] Comment: A. Colon, biopsy: - Colonic mucosa with no diagnostic abnormalities. at 1426 ESTPerformed By: #### 75229-4 ####[facility] LABCLIA [id number] [address] LABCLIA [id number] [address]ETNoProMedica Toledo Hospital on above:Order Comment: Specimen Type: TISSUE SPECIMENOrdering Facility: [facility] Address: [address] [place], [place] [address]Result Comment: Diagnostic interpretation performed at: [facility], [address] [place] [address] CLIA# [id number] Van Driver Helper: SHAYE Schreibererformed By: #### 21814-1 ####[facility] LABCLIA [id number] [address] LABCLIA [id number] [address] on above:Order Comment: Specimen Type: TISSUE SPECIMENOrdering Facility: [facility] Address: [address] [place], [place] [address]Result Comment: A. Colon, Biopsy Received in formalin are multiple pieces of cano-brown, soft tissue aggregating to 1.8 x 0.3 x 0.2 cm. Totally submitted in one cassette. DL September 04, 2024 3:07 AM Gross examination performed at [facility], [address] [place], [place] [address]Performed By: #### 03776-9 ####[facility] LABCLIA [id number] [place] [id number] [facility] LABCLIA [id number] [address] OF AMERICAOffice Visiton 80-01-5928Wdcoet-up [id number] Chioma Alonzo 2000 F Date Provider Department Center 07/28/2024 PAULA BASILIO [facility] No family history on file Level of Service:93413 MO OFFICE/OUTPATIENT ESTABLISHED LOW MDM 20 MIN (GC) Reason for Visit and Comments: Follow-up [813618] - Recurrent C Diff Nausea [70] Diarrhea [35] Constipation [100683]NormalUnSelect Medical [facility] Rehabilitation Hospital36on Follow-up message sent to patient via Bettyvision.NormalSelect Medical TriHealth Rehabilitation Hospital36on 99-76-330207Umoghnx LVM, hx of C Diff, reports she has a UTI and wants to know if Dificid is recommended to be taken along with her UTI atb? Please advise.NormalSelect Medical TriHealth Rehabilitation HospitalLaboratory - Chemistry and Chemistry - challengeon 33-92-8013Hqofisxek Ql (U)NegativeSelect Medical Specialty Hospital - Cincinnati NorthGlucose (U) [Mass/Vol]NegativeSelect Medical Specialty Hospital - Cincinnati NorthKetones Ql (U)Negative [facility] NorthpH (U)6.0 [pH][facility] Specific gravity (U) [Rel density]1.020[facility] Urobilinogen (U) [Mass/Vol]0.2 mg/dLSelect Medical Specialty Hospital - Cincinnati NorthLaboratory - Specimen informationon 25-40-1249Oofwonzqfx (U)cloudySelect Medical Specialty Hospital - Cincinnati NorthColor (U)YellowSelect Medical Specialty Hospital - Cincinnati NorthLaboratory - Urinalysison 27-63-9716Pmfhjemit esterase Test strip Ql (U)NegativeSelect Medical Specialty Hospital - Cincinnati NorthNitrite Ql (U)NegativeSelect Medical Special[facility] North Protein Ql (U)NegativeSelect Medical Specialty Hospital - Cincinnati NorthNo Panel Informationon 39-93-8408Ofjqh Occult BloodNegativeSelect Medical Specialty Hospital - Cincinnati NorthTelephoneon [id number] Chioma Alonzo 2000 F Date Provider Department Center 07/24/2024 SHYAM RUSH MP [facility] No family history on fileNormalUniversity of South Texas Health System EdinburgUrine Culture on 17-86-9626Nlmwsoud identified Cx Nom (U)15,000 colonies/ml mixed bacterial skin contaminants 2 Days PERFORMED BY: [facility] [address] [facility]. [place] [id number] PATHOLOGIST INDUSTRIAL ORDER CLERK DEANNE CABELLO M.D.NormalThe [facility] Physician GroupComment on above: Performed By: #### CUU #### [facility] [address] [place] [id number] [place]25([place])D3 [facility] 073464-cocayzypqtyyug D3 [Mass/Vol]39.8 ng/jKFqhiik21.0-80.0on HospitalComment on above:Order Comment: Specimen Type: BLOOD SPECIMEN [facility] Address: [address] [place], [place] [address]Result Comment: Classification of 25 [place] Vitamin D status: Deficiency/Insufficiency: < or = 30 ng/ml. Sufficiency/Optimal Levels: 31-80 ng/mL Toxicity: > 100 ng/mL. Test performed by chemiluminescent immunoassay.Performed By: #### 1989-3 #### [facility] CLIA [id number] [address] [place] [address] [place] [address] [place] OF AMERICACNOVon 93-08-3960KXWVFdeqzg Visit (GILA) CHIOMA ALONZO ([id number]) 2000 F Date Time Provider Department 07/15/24 [...] touching your toes, sit-ups, using row machine half-way pain recommendations per primary care provider/pain clinic [...] Abs Lymph 1.00 - 4.00 k/uL 2.06 [place]ent[place]% % 8.1 Abs Fentress <0.87 k/uL 0.42 Eosin% % 4.3 Abs [...] ccp<15, irena ifa, hepatitis panel, quantiferon tb; Catechist and always walking for exercise. NO swelling. [...] scalp tenderness, visual changes (more content not included)...NormalLake County Memorial Hospital - Weston 87-27-9733IGGQBlyhsvdrb (RIOS) CHIOMA ALONZO ([id number]) 2000 F Date Time Provider Department 07/15/24 NAE IBARRA During your visit today, we recorded the following information about you: Nae Ibarra MD 07/15/2024 6:42 PM Signed Please Call patient if MyChart note not read to review results/released to My Chart if tests completed at F: normal labs. Take over the counter vitamin D 9920-6704 International Units daily with food. Happy to [...] 07/15/2024 Encounter Status:Closed by HAM THOMPSON on 07/17/24NoalCSumma HealthCobalamin (Vitamin B12) [Mass/Vol]on 72-90-0958Ruvovatsqrgzez and review of laboratory resultsNoHocking Valley Community HospitalLaboratory - Chemistry and Chemistry - challengeon 82-40-4069Wqrjaqroo (Vitamin B12) [Mass/Vol]841 pg/iV228-6852HvzqgddrpVeterans Health Administrationerum or plasma calcidiol measurement (mass/volume)on 84-22-705005644305-myiktdaeqrfbtz D3 [Mass/Vol] Serum or plasma calcidiol measurement (mass/volume)31.0-80.0[facility] NorthComment on above:Classification of 25 [place] Vitamin D status: Deficiency/Insufficiency: < or = 30 ng/ml.Sufficiency/Optimal Levels: 31-80 ng/mLToxicity: > 100 ng/mL. Test performed by chemiluminescent immunoassay. VITAMIN B12on 90-84-7422Fasamzkrn (Vitamin B12) [Mass/Vol]841 pg/mL232 - 1245 pg/mLCohiohealth southeastern medical center ClinicVit B12 SerPl-mCncon 14-60-2730Kcxaedmgn (Vitamin B12) [Mass/Vol]841 pg/wWIdobfl973-4754Arwf HospitalComment on above:Order Comment: Specimen Type: BLOOD SPECIMEN [facility] Address: [address] [place], [place] [address]Rhlmmhpyx By: #### 2132-9 #### [facility] CLIA [id number] [facility] [place] [address] [place] OF AMERICABasophils Auto (Bld) [#/Vol]on 07-11-2024 Basophils (Bld) [#/Vol]Automated basophil count0.0-0.1FSt. Mary's Medical Center, Ironton CampusBasophils/100 WBC Auto (Bld)on 48-71-8561Zqiinxdcw/100 WBC (Bld)Automated basophil %0.2-2.0[facility] NorthEosinophils/100 WBC Auto (Bld)on 35-37-1214Ifpnvzwjhkg/100 WBC (Bld)Automated eosinophil %0.9-7.0 [facility] NorthErythrocyte distribution width Auto (RBC) [Ratio]on 20-51-7539Qfccndgrvwh distribution width (RBC) [Ratio]Erythrocyte distribution width [Ratio] by Automated count11.0-15.0[facility] NorthEstimated glomerular filtration rate (GFR) non- Americanon 03-60-7989PQN/1.73 sq M.predicted among non-blacks MDRD (S/P/Bld) [Vol rate/Area]Estimated glomerular filtration rate (GFR) non->=60 mL/min/1.73m 2FSt. Mary's Medical Center, Ironton CampusGlobulin Calc (S) [Mass/Vol]on 36-05-7120Befhnmum (S) [Mass/Vol]Serum globulin measurement by calculation (mass/volume)[facility] NorthHCG ( test) IA.rapid Ql (U)on 73-82-0223BAQ ( test) Ql (U)Urine human chorionic gonadotropin (hCG) detection by immunoassayNEGATIVESelect Medical Specialty Hospital [facility] Hematocrit Auto (Bld) [Volume fraction]on 00-88-4923Gbwlbpdvoq (Bld) [Volume fraction]Hematocrit [Volume Fraction] of Blood by Automated count36.0-48.0 [facility] NorthHemoglobin [Mass/volume] in Bloodon 07-11-2024 Hemoglobin (Bld) [Mass/Vol]Hemoglobin [Mass/volume] in Blood12.0-16.0[facility] NorthLaboratory - Chemistry and Chemistry - challengeon 23-75-1696Kcinbtt [Mass/Vol]4.4 g/dL3.4-5.0[facility] NorthALP [Catalytic activity/Vol]52 U/A63-342WhzxwyogjSelect Medical Specialty Hospital - Cincinnati NorthALT [Catalytic activity/Vol]16 U/Q76-93FhxguqzrqSelect Medical Specialty Hospital - [facility] NorthAST [Catalytic activity/Vol]18 U/P52-34EsbxcbnniSelect Medical Specialty Hospital - [facility] NorthBilirubin [Mass/Vol]0.9 mg/dL0.2-1.0[facility] NorthCalcium [Mass/Vol]9.4 mg/dL8.5-10.1FSt. Mary's Medical Center, [facility]ont[facility] CampusChloride [Moles/Vol]103 mmol/L 98-107[facility] NorthCO2 [Moles/Vol]26.9 mmol/L21.0-32.0 [facility] NorthCreatinine [Mass/Vol]0.80 mg/dL0.55-1.02 [facility] NorthGFR/1.73 sq M.predicted MDRD (S/P/Bld) [Vol rate/Area]mL/min/{1.73_m2}>=60 mL/min/1.73m 2FSt. Mary's Medical Center, [facility] Glucose [Mass/Vol]97 mg/iM07-062HbabgrrckSelect Medical Specialty Hospital - Cincinnati NorthLipase [Catalytic activity/Vol]25.0 U/L16.0-77.0[facility] Potassium [Moles/Vol]3.8 mmol/L3.5-5.1FSt. Mary's Medical Center, [facility] CampusProtein [Mass/Vol]7.9 g/dL6.4-8.2FSelect Medical Specialty Hospital - Youngstownodium [Moles/Vol]140 mmol/V281-904KvvwfsdjhSelect Medical Specialty Hospital - [facility] NorthUrea nitrogen [Mass/Vol]9.0 mg/dL 7.0-18.0[facility] NorthUrea nitrogen/Creatinine [Mass ratio] 11.2 mg/mgSelect Medical Specialty Hospital - Cincinnati NorthBilirubin Ql (U)NegativeNEGATIVE [facility] NorthGlucose (U) [Mass/Vol]NegativeNEGATIVESelect Medical Specialty Hospital - [facility] NorthKetones Ql (U)TRACE mg/dLAbnormalNEGATIVESelect Medical Specialty Hospital - [facility] NorthpH (U)6.0 [pH]5.0-9.0[facility] Specific gravity (U) [Rel density]1.0251.005-1.025[facility] NorthUrobilinogen Qn (U)0.2 {Trini'U}/dL0.2-1.0[facility] NorthLaboratory - Hematology and Cell countson 21-21-5480Lwqwziun granulocytes/100 WBC (Bld)0.2 %0.0-0.5FSt. [facility] - Specimen informationon 10-13-6381Krergngxpw (U)CLEARCLEARFSt. Mary's Medical Center, [facility] CampusColor (U)LT. YELLOWYELLOWSelect Medical Specialty Hospital - [facility] NorthLaboratory - Urinalysison 29-47-3543Pqhzghodr esterase Test strip Ql (U) NegativeNEGATIVESelect Medical Specialty Hospital - [facility] NorthNitrite Ql (U)NegativeNEGATIVE [facility] NorthProtein Ql (U)TRACE mg/dLNEG/TRACESelect Medical Specialty Hospital - [facility] NorthLeukocytes [#/volume] corrected for nucleated erythrocytes in Blood by Automated counon 27-80-9214CIX corrected for nucl RBC Auto (Bld) [#/Vol]Leukocytes [#/volume] corrected for nucleated erythrocytes in Blood by Automated coun4.0-11.0[facility] NorthLymphocytes Auto (Bld) [#/Vol]on 03-03-6923Cslstfmxelc (Bld) [#/Vol]Lymphocytes [#/volume] in Blood by Automated count1.2-3.8[facility] NorthLymphocytes/100 WBC Auto (Bld)on 66-01-6831Ahfkbexvgwz/100 WBC (Bld)Lymphocytes/100 leukocytes in Blood by Automated count20.5-60.0[facility], IncH Auto (RBC) [Entitic mass]on 47-25-9806XVV (RBC) [Entitic mass]MCH [Entitic mass] by Automated count26.7-34.0[facility] NorthMCHC Auto (RBC) [Mass/Vol]on 75-64-7243MWDP (RBC) [Mass/Vol]MCHC [Mass/volume] by Automated count29.9-35.2FSt. Mary's Medical Center, [facility] CampusMCV Auto (RBC) [Entitic vol]on 06-85-8798IOR (RBC) [Entitic vol]MCV [Entitic volume] by Automated count 81.0-99.0[facility] NorthMonocytes Auto (Bld) [#/Vol]on 31-20-2911Rgwwuqoqu (Bld) [#/Vol]Automated blood monocyte count0.3-0.8[facility] CenterMonocytes/100 WBC Auto (Bld)on 13-80-5327Druoeqmam/100 WBC (Bld)Automated monocyte %1.7-12.0[facility] Neutrophils Auto (Bld) [#/Vol]on 72-45-9595Dwmazmhqpll (Bld) [#/Vol]Neutrophils [#/volume] in Blood by Automated count1.4-6.5FSt. [facility] Neutrophils/100 WBC Auto (Bld)on 46-36-1289Hiolyxnxjzu/100 WBC (Bld)Automated neutrophil %Low43.0-75.0[facility] NorthNo Panel Informationon 46-78-7039Yjdkcocilfi # (Auto)0.3 10 3/uL0.0-0.7FSt. Mary's Medical Center, [facility] CampusImmature Granulocyte # (Auto)0.01 10 3/uL0.00-0.03[facility] NorthUrine Microscopic ReviewNOSelect Medical Specialty Hospital [facility] NorthUrine Occult BloodNegativeNEGATIVESelect Medical Specialty Hospital - [facility] NorthPlatelet mean volume Auto (Bld) [Entitic vol]on 86-18-7858Zqqdmogo mean volume (Bld) [Entitic vol]Platelet mean volume [Entitic volume] in Blood by Automated count9.5-13.5 [facility] NorthPlatelets Auto (Bld) [#/Vol]on 07-11-2024 Platelets (Bld) [#/Vol]Platelets [#/volume] in Blood by Automated ycsyj130-581 [facility] NorthRBC Auto (Bld) [#/Vol]on 11-92-1221OHV (Bld) [#/Vol]Erythrocytes [#/volume] in Blood by Automated count4.20-5.40[facility] Health Administrationerum or plasma albumin/globulin mass ratioon 07-11-2024 Albumin/Globulin [Mass ratio]Serum or plasma albumin/globulin mass ratio [facility] Health Administrationerum or plasma anion gap determinationon 56-39-4144Kswzn gap [Moles/Vol]Serum or plasma anion gap determinationSelect Medical Specialty Hospital - [facility] NorthNo Panel Informationon 11-86-0555Atayueldofa difficile (PCR)(LAB)PositiveSelect Medical Specialty Hospital - Cincinnati NorthComment on above:RESULTS CALLED TO KIMMY OLGUIN AT OFFICE BY Allyssa Valdes at 1352Miscellanelincoln county medical center TestCOMMENT.[facility] NorthComment on above:Test Ordered: [id number] C difficile Toxins A+B, EIAC difficile Toxins A+B, EIA Negative CB Reference Range: NegativePerformed at: CB - [facility] [address], [place] [id number] Director: Kai Schuster PhD, Phone: [phone] Panel Informationon 28-19-3817Gdiqm Chorionic Gonadotropin, Quant<1 mIU/mL [facility] NorthComment on above:5-50 0.2-1 GGUJ70-308 1-2 AXSUE079-8,000 2-3 ISKYA710-85,000 3-4 WEEKS1,000-50,000 4-5 WEEKS10,000-100,000 5-6 WEEKS15,000-200,000 6-8 WEEKS10,000-100,000 2-3 MONTHSTBH PREG QUANT HCGon 87-01-2987IJE QUANTITATIVE<1mIU/mLNOMS HealthcareComment on above:5-50 0.2-1 WEEK 50-500 1-2 WEEKS 100-5,000 2-3 WEEKS 500-10,000 3-4 WEEKS 1,000-50,000 4-5 WEEKS 10,000-100,000 5-6 WEEKS 15,000-200,000 6-8 WEEKS 10,000-100,000 2-3 MONTHS CLINISYNCNOMS HealthcareCNPNon 44-94-6778JVLOWwqgteoco ([facility] CHIOMA ALONZO ([id number]) 2000 F Date Time Provider Department 07/03/24 JAY THOMPSON [facility] During your visit today, we recorded the following information about you: Jorge Oropeza 07/03/2024 9:27 AM Addendum BLOCK CELIAC PLEXUS WITH C-ARM needs rescheduled. Please reach out to her to reschedule this. Shu Wilkins 07/07/2024 2:25 PM Signed BLOCK CELIAC PLEXUS WITH C-ARM CIHOMA ALONZO [id number] DESMOND HUFFMAN 07/21 -THINNERS -DM Patient was made aware that the ASC will call the day prior to scheduled procedure between the hours of 12 and 4 pm to advise patient of arrival time the day of procedure. Patient was advised that they will require a hydraulic lift driver on the day of their procedure, [...] Dr. Huffman [place] 07[place]04 to 07[place] patient request. Shu Wilkins 07/08/2024 9:12 [...] Reason for Visit: Appointment [186] Schedule Injection [0659] Prescriptions as of 07/08/2024 - gabapentin (NEURONTIN) [...] 11/15/2023 Encounter Status:Closed by JORGE OROPEZA [facility]24[facility] Panel Informationon 72-43-1387Vxoz of biopsy: tangential Informed consent: discussed and [...] taken yes Amount of lidocaine used: 0.4 [facility] CloudWalkNo Panel InformationOrdered By: Kayla Griffith on 19-60-4746FZBZ CloudWalkNo Panel Informationon 06-30-2024 Human Chorionic Gonadotropin, Quant8 mIU/mLSelect [facility] Comment on above:5-50 0.2-1 AVNI21-343 1-2 CXTBZ382-2,000 2-3 YZUCW922-71,000 3- 4 WEEKS1,000-50,000 4-5 WEEKS10,000-100,000 5-6 WEEKS15,000-200,000 6-8 WEEKS10,000-100,000 2-3 MONTHSBasophils Auto (Bld) [#/Vol]on 93-33-6650Iogtkdylz (Bld) [#/Vol]Automated basophil count0.0-0.1FSt. [facility]'s [facility] Basophils/100 WBC Auto (Bld)on 32-78-5529Ozncclbve/100 WBC (Bld)Automated basophil %0.2-2.0[facility] NorthEosinophils/100 WBC Auto (Bld) on 16-56-3530Qdhpabwpvfk/100 WBC (Bld)Automated eosinophil %0.9-7.0[facility] NorthErythrocyte distribution width Auto (RBC) [Ratio]on 21-62-7187Feaudpbeptg distribution width (RBC) [Ratio]Erythrocyte distribution width [Ratio] by Automated count11.0-15.0[facility] Estimated glomerular filtration rate (GFR) non- Americanon 06-25-2024 GFR/1.73 sq M.predicted among non-blacks MDRD (S/P/Bld) [Vol rate/Area]Estimated glomerular filtration rate (GFR) non->=60 mL/min/1.73m 2 [facility] NorthGlobulin Calc (S) [Mass/Vol]on 06-25-2024 Globulin (S) [Mass/Vol]Serum globulin measurement by calculation (mass/volume) [facility] NorthHematocrit Auto (Bld) [Volume fraction]on 54-64-1821Vatxnjyjfg (Bld) [Volume fraction]Hematocrit [Volume Fraction] of Blood by Automated count36.0-48.0[facility] NorthHemoglobin [Mass/volume] in Bloodon 85-44-2053Yspsrsmxvf (Bld) [Mass/Vol]Hemoglobin [Mass/volume] in Blood12.0-16.0[facility] NorthLaboratory - Chemistry and Chemistry - challengeon 43-50-3391Cccngje [Mass/Vol]4.1 g/dL 3.4-5.0[facility] NorthALP [Catalytic activity/Vol]50 U/L46-116 [facility] NorthALT [Catalytic activity/Vol]14 U/L14-59 [facility] NorthAST [Catalytic activity/Vol]10 U/YCcn93-16 [facility] NorthBilirubin [Mass/Vol]1.1 mg/dLHigh0.2-1.0 [facility] NorthCalcium [Mass/Vol]9.3 mg/dL8.5-10.1FSt. Mary's Medical Center, [facility] CampusChloride [Moles/Vol]105 mmol/U35-301UolacvppkSelect Medical Specialty Hospital - [facility] NorthCO2 [Moles/Vol]24.5 mmol/L21.0-32.0[facility] NorthCreatinine [Mass/Vol]0.73 mg/dL0.55-1.02[facility] GFR/1.73 sq M.predicted MDRD (S/P/Bld) [Vol rate/Area]mL/min/{1.73_m2}>=60 mL/min/1.73m 2FSt. Mary's Medical Center, [facility]ont[facility] CampusGlucose [Mass/Vol]103 mg/bJ00-389 [facility] NorthPotassium [Moles/Vol]4.1 mmol/L3.5-5.1FSt. Mary's Medical Center, [facility] CampusProtein [Mass/Vol]7.3 g/dL6.4-8.2FSelect Medical Specialty Hospital - Youngstownodium [Moles/Vol]139 mmol/J050-509CdxndchovSelect Medical Specialty Hospital - [facility] NorthUrea nitrogen [Mass/Vol]12.0 mg/dL7.0-18.0[facility] NorthUrea nitrogen/Creatinine [Mass ratio]16.4 mg/mgSelect Medical Specialty Hospital - Cincinnati NorthBilirubin Ql (U)NegativeNEGATIVESelect Medical Specialty Hospital - [facility] NorthGlucose (U) [Mass/Vol]NegativeNEGATIVESelect Medical Specialty Hospital [facility] NorthKetones Ql (U)15 mg/dLAbnormalNEGATIVESelect Medical Specialty Hospital [facility] NorthpH (U)5.5 [pH]5.0-9.0 Veterans Health Administrationpecific gravity (U) [Rel density]>=1.030 Abnormal1.005-1.025[facility] NorthUrobilinogen Qn (U)0.2 {Trini'U}/dL0.2-1.0[facility] NorthLaboratory - Hematology and Cell countson 64-83-6577Pnanmsav granulocytes/100 WBC (Bld)0.3 %0.0-0.5 [facility] NorthLaboratory - Specimen informationon 06-25-2024 Appearance (U)CLEARCLEARFSt. Mary's Medical Center, [facility] CampusColor (U)YELLOWYELLOW [facility] NorthLaboratory - Urinalysison 83-87-3437Iftsqtxpt esterase Test strip Ql (U)NegativeNEGATIVESelect Medical Specialty Hospital - [facility] NorthMucus Ql (Urine sed)MODERATEAbnormalNONE SEENSelect Medical Specialty Hospital - [facility] NorthNitrite Ql (U)NegativeNEGATIVESelect Medical Specialty [facility] NorthProtein Ql (U)30 mg/dL AbnormalNEG/TRACESelect Medical Specialty Hospital - [facility] NorthLeukocytes [#/volume] corrected for nucleated erythrocytes in Blood by Automated counon 72-26-4082GDB corrected for nucl RBC Auto (Bld) [#/Vol]Leukocytes [#/volume] corrected for nucleated erythrocytes in Blood by Automated coun4.0-11.0[facility] NorthLymphocytes Auto (Bld) [#/Vol]on 99-29-1815Ipypaopkfzk (Bld) [#/Vol]Lymphocytes [#/volume] in Blood by Automated count1.2-3.8[facility] NorthLymphocytes/100 WBC Auto (Bld)on 06-25-2024 Lymphocytes/100 WBC (Bld)Lymphocytes/100 leukocytes in Blood by Automated count Low20.5-60.0[facility], IncH Auto (RBC) [Entitic mass]on 34-32-2063XQY (RBC) [Entitic mass]MCH [Entitic mass] by Automated count26.7-34.0 [facility] NorthMCHC Auto (RBC) [Mass/Vol]on 67-81-4200FAON (RBC) [Mass/Vol]MCHC [Mass/volume] by Automated count29.9-35.2FSt. Mary's Medical Center, Iront[facility] CampusMCV Auto (RBC) [Entitic vol]on 89-20-3544PSC (RBC) [Entitic vol] MCV [Entitic volume] by Automated count81.0-99.0[facility] NorthMonocytes Auto (Bld) [#/Vol]on 79-46-0357Npuazkkix (Bld) [#/Vol]Automated blood monocyte count0.3-0.8[facility] NorthMonocytes/100 WBC Auto (Bld)on 59-15-4128Jyzdcxymm/100 WBC (Bld)Automated monocyte %1.7-12.0 [facility] NorthNeutrophils Auto (Bld) [#/Vol]on 06-25-2024 Neutrophils (Bld) [#/Vol]Neutrophils [#/volume] in Blood by Automated count 1.4-6.5FSt. Mary's Medical Center, [facility]ont[facility] CampusNeutrophils/100 WBC Auto (Bld)on 86-91-8973Vaxvixowplm/100 WBC (Bld)Automated neutrophil %43.0-75.0[facility] NorthNo Panel Informationon 47-88-8881Apqiirdromt # (Auto)0.2 10 3/uL0.0-0.7FSt. Mary's Medical Center, [facility] CampusHuman Chorionic Gonadotropin, Quant32 mIU/mLSelect Medical Specialty Hospital - Cincinnati NorthComment on above:5-50 0.2-1 QJFW63-246 1-2 PQOGS634-3,000 2-3 GDVHF799-49,000 3-4 WEEKS1,000-50,000 4-5 WEEKS10,000-100,000 5-6 WEEKS15,000-200,000 6-8 WEEKS10,000-100,000 2-3 MONTHS Immature Granulocyte # (Auto)0.02 10 3/uL0.00-0.03[facility] NorthUrine BacteriaTRACE #/HPFAbnormalNONE St. Francis HospitalUrine Culture ReflexedNOSelect Medical Specialty Hospital - [facility] NorthUrine Microscopic ReviewYEWayne HospitalUrine Occult BloodNegativeNEGATIVE [facility] NorthUrine RBCNONE SEEN #/HPF0-2FSt. Mary's Medical Center, [facility] CampusUrine Squamous Epithelial CellsMODERATE #/LPFAbnormalNONE/RARE [facility] NorthUrine WBCNONE SEEN #/HPFNONE St. Francis HospitalPlatelet mean volume Auto (Bld) [Entitic vol]on 01-13-7995Mposnlnn mean volume (Bld) [Entitic vol]Platelet mean volume [Entitic volume] in Blood by Automated count9.5-13.5FSt. Mary's Medical [facility] Platelets Auto (Bld) [#/Vol]on 73-02-2761Pbuljzfel (Bld) [#/Vol]Platelets [#/volume] in Blood by Automated -041NmbsspvrsSelect Medical Specialty Hospital - [facility] North RBC Auto (Bld) [#/Vol]on 79-65-6675XTW (Bld) [#/Vol]Erythrocytes [#/volume] in Blood by Automated count4.20-5.40[facility] Health Administrationerum or plasma albumin/globulin mass ratioon 46-57-6664Fffmvdt/Globulin [Mass ratio] Serum or plasma albumin/globulin mass ratioSelect Medical Specialty Hospital - [facility] North Serum or plasma anion gap determinationon 12-47-7053Ipuar gap [Moles/Vol]Serum or plasma anion gap determinationSelect Medical Specialty Hospital - Cincinnati NorthCNPNon 71-72-6623MCQSXpvulctfy (INMAVN) CHIOMA ALONZO ([id number]) 2000 F Date Time Provider Department 06/23/24 [...] 11/15/2023 Encounter Status:Closed by BONNY JOYNER on 06/23/24[facility] HospitalCNrozina 09-68-3059UQHDBouuzoeyz (ORLORA) CHIOMA ALONZO ([id number]) 2000 F Date Time Provider Department 05/14/24 [...] 11/15/2023 Encounter Status:Closed by SHU WILKINS on 05/14/24[facility] HospitalANATelephone (ORALEXIAA) CHIOMA ALONZO N ([id number]) 2000 F Date Time Provider Department 05/14/24 THO HUFFMAN During your visit today, we recorded the following information about you: Shu Wilkins 05/14/2024 1:48 PM Signed diagnostic celiac plexus blockade CHIOMA ALONZO [id number] BHARATHI 07/04 -THINNERS -DM Patient was made aware that the ASC will call the day prior to scheduled procedure between the hours of 12 and 4 pm to advise patient of arrival time the day of procedure. Patient was advised that they will require a hydraulic lift driver on the day of their procedure, [...] neuritis [M79.2] Order(s):SURGICAL REQUEST - ELECTIVE (02/2020) [[id number]] Order #: [id number]: 1 Prescriptions as of 05/14/2024 - gabapentin [...] 11/15/2023 Encounter Status:Closed by SHU WILKINS on 05/14/24[facility] 71-86-4556MBXGYclglz Visit ([facility]) CHIOMA ALONZO ([id number]) 2000 F Date Time Provider Department 04/30/24 11:00 AM PAULA PRETTY [facility] During your visit today, we recorded the [...] to display No d (more content not included)...NormalShelby Memorial Hospitalgical pathology studyOrdered By: Diego Syed on 37-99-7027Tqvhuvuhmy comment Ganga (Report) o3ymnZHpZSYmc9xnMWJdbFNuUtKqSgVyRlEhWymacVTiWDaxouCcXNfts7DvH9ZtJiReWIdehkDpQZZb CtxejcxcRBRaDQF5opTw ZXTdCYvzDVPfWMjnHk9upVUohNodAvXnSPTwo0mpraFLWUyxKVUYRNk8c1kfQCArJzY8yJXcSGctP9md utPugEZgZ7Dwl0SrGXi8 aG75SCXfzZ6lgRAhCEthyvAzHxW4SQbwZTBwIfG3GLSdzUEhBFWzJ3teJNNuLYbjBGKuUWnluHUdJNL2 hYbwi9L6iATybXZefZfm RmMsAnTiWuLHv4ZuUHa5dTelR5JfTQDeWtO7eMCoDUYsLFawVRQbTJErzxL0fV13WHjwiuS2vAYop1Gj x60is332qF8gfBPoOHA2 HBTiGEIglKItSMLuIVD0ZWBscTQpV5jwQuEtoMIsV3HwGeFtlINrN7RgLtAtuONpW2XgDsKfiBRuPTBk bMX3EUfin675YXA9GnBq NN6xW2Smd6D1wB0rnINuZHTljGBaEoJtMLEggw9chXAdCCcuw4DhPZN3kyM6sCLukTAkGKOlNJ17Tssm u5ZkDeoaVTN1DJKifpKx c3Ifo0ezHxEwmtCwW2ftD3FqHLJhMXQxECGaZwZoxvPie8Jsn7DoaHKxhPw3b2nkQSXzILLumKqwc5uk SDY6RQSgI8Q8xYOby1wu GOeqJIQuxLK5yuN5YOhqSDDcqhL8lvK4QQxzGGZfdKA4yzL6DNyuJKKvKqD0yiC6ATwsTEDwMVT8NeIu KWPpi4AlwsdbGgWcp1Dl jYDwBWkdI75wd165CVZesfZmH9mewPLrjbomdYYhmzrkFIopnbP9YEFlHXObLMgcBCJbPHHcZmUjaQDs ZzEwMzNcaGljaFxmMVxk OwRxARVrLFlrW9iaEnAvWxPmBIGIePL0eSDyw3pamgM6pLHiLE7jLVKqlBPrvvAzo4D4SHA9hITzrX9e uQKuQIWvpPOrmeFbdm87 qVHooKL0OIKeYSZtiHKijA7eIMDhKTPRsG5bcNBAwzWwzeYjAIWhxSaxju4CoUUinw6ezRBaC8JsnBew nKOqBVCsHNEncCgzmZMgOUByRGAzfhkys0PkWEErgZQrH1GbYW7mGBYmru59Ynglgiyrcu [facility] Work Phone: Pathology report Cancer NarrativeSurgical Pathology Case: [id number] Authorizing Provider: Whitney Ambriz MD MPH Collected: 04/16/2024 1012 Ordering Location: [facility] Received: 04/17/2024 0929 Center Pathologist: Diego Syed MD PhD Specimens: A) - DUODENUM SECOND PART BIOPSY, Cold Bx B) - ANTRUM BODY BIOPSY, Evaluate for H pylori and Gastritis [facility] Work Phone: Pathology report final diagnosis Narrative h9cliDGzDDDwkXMqOGlrLqvibfCvGYDonYWmF3KrwckwREsjMS6qJW5ahLcktBCwfLGoFIYtEeIwt4jm o573qDVly4ayANWIbzcg zFi2eYmvQ57ld4M5SjcaC5gyUUObALyyZWDiZGlykNGzGEc7JHOfcGMaarSeMeScOLLybSZttPZ7APMy AL7bidndOElaGGtoTJRv twV8XIPimLGkX8ZkIHSkHG0zdkagXAE4RIamZGMrEGF2YwNmXTJpb1Wpxik2BbFuiAv2p3duHXZdFSJg mOmlx0ayWIP3ZFOavVKg L9lvcD9cEJGwMP9dnwpfs0keIDbqQLdeYTKzzPN7blF4QAUqbQWaT2BsmL0bXMJiXONfivFtcIkqiS5g RgptglWbTNAlQZB5h2Az qqDpVFHYUKYnmbQqCWTgdJaaOdftdTM4ZbczIYXjFULehyWeARMKa7QvIEboRALtGYFeZSdymOGsy0Zs LiBObyBpbnRyYWVwaXRo DJbmBDdxzVvreBjgM6f2h4Glhb7uZb0unNDaKPKhoYxdnPWoZARfeHe5NRO0fKTgChruODUtqEAwBQJc Hu2xK2RzxGUwoMowDV81 iyKnHAHdNEIDs5L1KEHMpH0rk0y0QAZlPYFtbPBdQYKubaSvV5WxHJ1kLQwqLzQiHBNhvsXouSimdrKb JJ53Y07dCEG1uXRpKBZz CR3dU9VsJAdjl3CnjBGkveTksa5we7Gehe6qVJHaVGOwbVbzwK6bfHPmwIN2x1I0ITOppKxpVQQwwJzq XOFxRts5uCnhWDBiHkzj KUUybmLwTKQAnrSGYYhkL52jIWL8EKZxwQjyx5LfGL3uM4YuqWInqcPkmcGatWEcfiHiFiktKS6mlQTh XHBhcn0=[facility] Work Phone: Pathology report gross observation Narrative p9xmfRZiXQVpnQCkMZioWngfftHnQCQqqZGhX2JimtrnCXmiGY3dSW7ejMpwqPVezAEaYSCsLmBay1yt y535oOFyx0naXXIPxele kIl5wBfzO21ha1M4GnifP70nfKPlZEY7TNHvBQNowBGyHASsBNM6PJIorHPnQ8pdECHwRR9ogadfPNfs VEfhWJFucRL9ECKafESs N4KxTMCoEZesNCYyhuc3PjPqKr8chPQfxKdvQVzbUylhuUmcp6LsfMBzUXheLPAuZFZuVUpklvtjMWj2 WZMeUCrvwQTpDQ6klZzr XafkhKcwg5BilQNvKEbiTVYnICGhMAoqUMAiX5YUJFMvUNd0EFV4UpWgPQf9DRn2AW5XAdAkVMNgAsa4 YSY6ZvYfPMd3TIlsHB2X CULhQyA4LZG5UpvhWKR1DrVsFWybgAByCSVxLfVdLRZzVDGwFIhwxTZqTP8baMleFSNeBVIbSwRlOWLh W0ceLxCzNVVcWFklEXBn BsUlYFghLcGpIIi2MDYosF8lAd5epIRecF2dUQvvJaHxTHJbu6m5iYN3eFRfqUU6zJXhoPheDZ5ctJEx XA6oRVwnp2TmbRNpPW66 tQDpazCcxvEyLfBFl5akUSDMRbqnAUDnKGJ6ubYitwPtmTLjgQEhv4StiTDvLSOaf5U5GTFgb1H5ELWy O0dnCRwfvZoiGxT3gxPp MT97WObjQH6xHOvpBC8zZAYeNpTRdLTws1WsX6ckJK9zzNLzb4MnwJp0mSLvKUnuUDUmaE6zkZ2ld93r NFGve4QkcEDkJawyJETm fOXhYBDTZQRoHgSEKVPxjdyiIUIgJDPpfJZYe4NhHNxmSMZvP1ArY5BiqiS4VZEwvoquLetruBgvr1Jg dCBcXGlkIDUxMDAyIFxc UMJqU5MEEQKkCHa9ZZB4HdAoQEh2IOe9CA0QHeKoPNZfFds5QLQ0ZzTlPYa6DRyiEN4HRRAkEiN8QDI8 GFIuQNV3MlHdTKlmaAFc XMTdPxDlCSJeUQAgAWdcbBLuCG6qtWccYZEmWGAcVXW0TPNfdPOVx8NyLtNliKimkR8sToBsBYHFSrIU QLXotAPdBIHdbjGzh9Da QKsxjwjevFQoGPklDXV1nKGjYBTrCEAxAIJsSU75D6FxcoGqQKPgcvSqiH6nvSq5QPeavmOfCxWjBKQk RYGgSSBqsZCfpKOuOa7k IOdzTSZ9lB2tjCCcosEptU9bJRHrtxFptWoyUVHdUKfsPJ38brHxFnL2RE4dPYAfAeTzsOcpj1IfEPNa K1ZiL5V2lJ8iAQFgZDOa CvYvvFJjCoFasGMcDtUgU57kXDLtDNDlcYWkrB2gruVljxTxcZNonSG0DJAkpT0ezL28jlViuzHrmpSz N3Fsl6K7bIPgMCQddzio LLAnUJTICz3XK9VboTGcZGSwWwBbTYVoU7acULXpHRK3IFSxoPDfBMM8XM4qqNneVGWmR6LsR7EklsU6 XHBhcn0=[facility] Work Phone: Pathology report relevant history Narrative x2kdqRYlBRIedCTaOQeqBvjrdhKjYWXloTDjW0WotiqpNRisMF3xOQ3wqHjzuHWdmIYfLLEgDmQsy4hv p274mBIvn1jhUWCYawet wPw2oHmfN57lc9R5SfltD12bfCEsMQH0YLYuYFLrmYMwZQAlLNN2AXNlrHOiF3doSLPwMX0cjqoeBPec ZWxhFIZofGK0MLMyqGZr G3ZfGIFxURtdCRGgwvw7GhKzCg1jyIUpoJxuPPojHBCgNEAhDLhkCQNmFgLcDLQtyRMpBUAiC3JznPGu eSevCW3xjoZbe5lqHIWj bFKwJVZMJo8ST0NlKMsPMscxVX9xaMUlRSFmFCL9UMu8QZHyBKYqjgBLWVckMLInRCmsNOHuOOykWUJx FdmlMYYmoDKsxSLnLy1rCOieq3MlyXJzztDcwnLdQO6ImUojtlwtxRMurX==Rynfehtofr [facility] Work Phone: Un[facility] Work Phone: CN[facility] [id number] (GASTNO) CHIOMA ALONZO ([id number]) 2000 F Date Time Provider Department 04/24/24 [...] 11/15/2023 Encounter Status:Closed by GISELA PONCE on 04/24/24[facility] Study observation Narrativeon [id number] formatting from the original result was not [...] Ambriz MD MPH 04/16/2024 1016 Procedure Location [facility] [address] [facility] [address] Referring Provider Whitney Ambriz MD MPH Procedure Provider Whitney Ambriz MD MPH [facility] Work Phone: Radiology Study observation (narrative)[facility] Work Phone: EGD Study observation NarrativeOrdered By: Whitney Ambriz on [id number] State University [facility] Work Phone: hcg ( test) Ql (U)on 17-03-4573Rxjnvmvsfyclbc and review of laboratory resultsNormalUniProMedica [facility] Work Phone: Prep Test, UrNegativeNegativeUnOhio State University [facility]xner Medical Center Work Phone: Un[facility] Work Phone: CNOVon [id number] Visit ([facility] CHIOMA ALONZO ([id number]) 2000 F Date Time Provider Department 03/26/24 11:00 AM PAULA PRETTY [facility] During your visit today, we recorded the [...] 11/15/2023 Encounter Status:Closed by PAULA PRETTY on 03/26/24NormalCfisher-titus medical centerand Formerly [facility] HospitalNo Panel Informationon [id number] [facility] diff Tox gens Stl Ql RUCHI+probeon 03-13-2024. difficile toxin genes RUCHI+probe Ql (Stl)NegativeNormal Negative for C. difficile toxin by PCRPromedica Memorial HospitalComment on above:Order Comment: Specimen Type: STOOL SPECIMENOrdering Facility: [facility] Address:[address] [place], [place] [address]Performed By: #### [id number] ####[facility] LABCL[facility] [id number] [place] [address] [place]. DIFFICILE PCRon 03-13-2024. difficile toxin genes RUCHI+probe Ql (Stl)NegativeNegative for C. difficile toxin by PCRBarney Children's Medical Center. difficile toxin genes RUCHI+probe Ql (Stl)on [id number] and review of laboratory resultsNormalCleveland OhioHealth Berger HospitalCNOVon [id number] Visit (GGENMN) CHIOMA ALONZO ([id number]) 2000 F Date Time Provider Department 02/26/24 [...] HISTORY No date: COLONOSCOPY (more content not included)...NormalSum[facility] Health [facility] Gastrointestinal tract upper Views W barium contrast Aime [id number]: Mild gastroesophageal reflux and mild esophageal dysmotility. Otherwise, unremarkable upper GI series. Meat Loiner: FRANCISCO Transcribe Date/Time: Feb 11 2024 11:34A Dictated by : ANJALI HALEY MD This examination was interpreted and the report reviewed and electronically signed by: ANJALI HALEY MD on Feb 11 2024 4:03PM [facility]* * *Final Report* * * [...] somewhat limited assessment of the gastric cardia/fundus. [facility] RADIOLOGYProvider, f Imaging [place] - 02/11/2024 * * *Final Report* * [...] esophageal dysmotility. Otherwise, unremarkable upper GI series. Meat Loiner: FRANCISCO Transcribe Date/Time: Feb 11 2024 11:34A Dictated by : ANJALI HALEY MD This examination was interpreted and the report reviewed and electronically signed by: ANJALI HALEY MD on Feb 11 2024 4:03PM EST [facility] HospitalRadiology Study observation (narrative)[facility] HospitalRF Gastrointestinal tract upper Views W barium contrast POOrdered By: Ccf Provider on 03-52-8860Paojutbdi ClinicXR UPPER GI SINGLE CONTRASTon 26-42-8511KE UPPER GI SINGLE CONTRAST* * *Final Report* [...] esophageal dysmotility. Otherwise, unremarkable upper GI series. Meat Loiner: FRANCISCO Transcribe Date/Time: Feb 11 2024 11:34A Dictated by : ANJALI HALEY MD This examination was interpreted and the report reviewed and electronically signed by: ANJALI HALEY MD on Feb 11 2024 4:03PM EST [id number] Hospital for WomenNM GASTRIC EMPTYING SOLIDon 53-58-1710EZ GASTRIC EMPTYING SOLID* * *Final Report* * [...] which lowers the sensitivity of the study. Meat Loiner: FRANCISCO Transcribe Date/Time: Jan 30 2024 2:09P Dictated by : JOSELUIS MORA MD This examination was interpreted and the report reviewed and electronically signed by: JOSELUIS MORA MD on Jan 30 2024 2:10PM [facility] [id number] University Medical Center Hospital Stomach Views for gastric emptying solid phase W radionuclide Aime 62-58-9369FMBYMYFQPN: Normal rate of gastric emptying of a solid meal. However patient consumed less than the standard meal, which lowers the sensitivity of the study. Meat Loiner: FRANCISCO Transcribe Date/Time: Jan 30 2024 2:09P Dictated by : JOSELUIS MORA MD This examination was interpreted and the report reviewed and electronically signed by: JOSELUIS MORA MD on Jan 30 2024 2:10PM [facility] RADIOLOGY* * *Final Report* * * [...] retention at 4 hours (normal range, 0-10%). [facility] RADIOLOGYRutland Regional [facility] CenterviM[facility] [place] - 01/30/2024 * * *Final Report* * [...] which lowers the sensitivity of the study. Meat Loiner: [facility] Transcribe Date/Time: Jan 30 2024 2:09P Dictated by : JOSELUIS MORA MD This examination was interpreted and the report reviewed and electronically signed by: JOSELUIS MORA MD on Jan 30 2024 2:10PM [facility] observation (narrative)[facility] Stomach Views for gastric emptying solid phase W radionuclide POOrdered By: Ccf Provider on 16-22-9381Uwcaxhgvl ClinicCNPNon 27-26-8399OLORUlfoidkos (MODESTO) CINDYCHIOMA Newberry Jovana ([id number]) 2000 F Date Time Provider Department 01/29/24 [...] 11/15/2023 Encounter Status:Closed by VITOR HARP on 01/29/24[facility] [id number]: [id number] Received: 01/02/24 Status: TRUDY Mosley Num: [id number] Spec Type: Surgical Subm Dr: Ana Bolton DO Tissues: A Appendix - Other than Incidental (APPENDIX) Procedures: HE/2, Gross/Micro L3 Age/ Patient Sex Location Account Attending Physician Chioma Alonzo 23/F LABELL [id number] Ana Bolton DO SPEC NUM: [id number] RECD: 01/02/24 STATUS: TRUDY MOSLEY NUM: [id number] RAQUEL: 01/01/[address]: Ana Bolton DO ENTERED: 01/02/[address] [facility] [address]: Verena Bettencourt SPEC TYPE: Surgical DEPT: [...] masses or areas of perforation are identified. Sign Installer sections are submitted in A1 (base and midportion)?A2 (entire distal tip). CPT Codes 66165 Specimen: [id number] Received: 01/02/24 Status: TRUDY Mosley Num: [id number] Spec Type: Surgical Subm Dr: Ana Bolton, Tissues: A Appendix - Other than Incidental (APPENDIX) Procedures: MARI/Tiffanie Morris/Laxmi L3 Patient: Chioma Alonzo [id number] (Continued) Signed (signature on file) Deanne Cabello MD 01/03/[address] [place] [address] Physician GroupSurgical PathologyOrdered By: Jasmin Hatch on 19-57-1920XfmBvyoduBethesda North HospitalCNOVon 57-15-9097UFNHRmxbbd Visit ([facility]) CHIOMA ALONZO ([id number]) 2000 F Date Time Provider Department 12/28/23 3:00 PM [facility] During your visit today, we [...] an issue, start amitriptyline. Consider referral to [facility] if symptoms fail to improve. [...] last colonoscopy was 8 months ago in [place]. Start amitriptyline Keep appt with Dr. Menon [...] divisum. 12/01/22 HIDA scan was done at [facility]: Normal study EF 69% US: 10/31/22: (care everywhere) Liver normal Gallbaldder appears normal with no stones or sludge. No gallblad (more content not included)...NormalPromedica Memorial HospitalAmylase SerPl-cCncon 12-27-2023 Amylase [Catalytic activity/Vol]44 U/EQsppnj71-054PuknrnmllPromedica Memorial Hospital Comment on above:Order Comment: Specimen Type: BLOOD SPECIMENOrdering Facility: [facility] Address:[address] [place] [address] Performed By: #### 1798-8, 1987-, 3040-3 ####[facility] LABCLIA [id number] [facility] [id number] [address] [place] STATES OF AMERICABasophils Auto (Bld) [#/Vol]on 97-46-2788Sunrhrijn (Bld) [#/Vol]0.04 10*3/uL<0.11[facility] NorthBasophils/100 WBC Auto (Bld)on 53-26-9533Zapuuyewd/100 WBC (Bld)0.8 %[facility] NorthBlood manual differential comment interpretation narrativeon 78-38-4892Uznnee differential comment Ganga (Bld) [Interp]AutoSelect Medical Specialty Hospital - Cincinnati NorthCB W Auto Differential panel (Bld)on 33-84-6722Srrjzdram (Bld) [#/Vol]0.04 10*3/uL Normal<0.11CSumma HealthComment on above:Order Comment: Specimen Type: BLOOD SPECIMENOrdering Facility: [facility] Address:[address] [place], [place] [address]Performed By: #### 61044-4 ####[facility] LABCLIA [id number] [place] [address] Basophils/100 WBC (Bld)0.8 %NormalMarion Hospital on above: Order Comment: Specimen Type: BLOOD SPECIMENOrdering Facility: [facility] Address:[address] [place], [place] [address]Performed By: #### 36974- 8 ####[facility] LABCLIA [id number] [place], [place] [address]Uxanfkelkmvr cell count method Nom (Bld)AutoNormal [facility] on above:Order Comment: Specimen Type: BLOOD SPECIMENOrdering Facility: [facility] Address:[address] [place], [place] [address]Performed By: #### 35464-4 ####[facility] LABCLIA [id number] [place], [place] [address]Uhsvgfqfprb (Bld) [#/Vol]0.22 10*3/uLNormal<0.46[facility] on above: Order Comment: Specimen Type: BLOOD SPECIMENOrdering Facility: [facility] Address:[address] [place], [place] [address]Performed By: #### 05131- 8 ####[facility] LABCLIA [id number] [place], [place] [address]Wdaeffuxhib/100 WBC (Bld)4.3 %NormalMarion Hospital on above:Order Comment: Specimen Type: BLOOD SPECIMENOrdering Facility: [facility] Address:[address] [place], [place] [address]Performed By: #### 65822-3 ####[facility] LABCLIA [id number] [place], [place] [address]Nrnldzrbqid distribution width (RBC) [Ratio]11.6 %Cizlay68.5-15.0[facility] on above: Order Comment: Specimen Type: BLOOD SPECIMENOrdering Facility: [facility] Address:[address] [place], [place] [address]Performed By: #### 66402- 8 ####[facility] LABCLIA [id number] [place], [place] [address]Vltmffzgtj (Bld) [Volume fraction]41.5 %Gvikpb95.0-46.0 [facility] on above:Order Comment: Specimen Type: BLOOD SPECIMENOrdering Facility: [facility] Address:[address] [place], [place] [address]Performed By: #### 76073-9 ####[facility] LABCLIA [id number] [place], [place] [address]Mmxhomswwn (Bld) [Mass/Vol]14.1 g/qNDkbtrq33.5-15.5COhioHealth Riverside Methodist Hospital on above: Order Comment: Specimen Type: BLOOD SPECIMENOrdering Facility: [facility] Address:[address] [place], [place] [address]Performed By: #### 27776- 8 ####[facility] LABIA [id number] [place], [place] [address]Gafiucjs granulocytes (Bld) [#/Vol]10*3/uLNormal<0.10 [facility] on above:Order Comment: Specimen Type: BLOOD SPECIMENOrdering Facility: [facility] Address:[address] [place], [place] [address]Performed By: #### 57822-3 ####[facility] LABCLIA [id number] [place], [place] [address]Mfutffom granulocytes/100 WBC (Bld)0.2 %NormalMarion Hospital on above: Order Comment: Specimen Type: BLOOD SPECIMENOrdering Facility: [facility] Address:[address] [place], [place] [address]Performed By: #### 79430- 8 ####[facility] LABCLIA [id number] [place], [place] [address]Yatwoofhrvd (Bld) [#/Vol]2.06 10*3/uLNormal1.00-4.00 [facility] on above:Order Comment: Specimen Type: BLOOD SPECIMENOrdering Facility: [facility] Address:[address] [place], [place] [address]Performed By: #### 13970-8 ####[facility] LABCLIA [id number] [place], [place] [address]Fmumcmerzxg/100 WBC (Bld)39.8 %NormalMarion Hospital on above:Order Comment: Specimen Type: BLOOD SPECIMENOrdering Facility: [facility] Address:[address] [place], [place] [address]Performed By: #### 49058-9 ####[facility] LABCLIA [id number] [place], [place] [address]CQQ (RBC) [Entitic mass]31.5 nfJcsvkl27.0-34.0[facility] on above:Order Comment: Specimen Type: BLOOD SPECIMENOrdering Facility: [facility] Address:[address] [place], [place] [address]Performed By: #### 88310-1 ####[facility] LABCLIA [id number] [place], [place] [address]XUBW (RBC) [Mass/Vol]34.0 g/qBTesnzo20.5-36.0[facility] on above: Order Comment: Specimen Type: BLOOD SPECIMENOrdering Facility: [facility] Address:[address] [place], [place] [address]Performed By: #### 34480- 8 ####[facility] LABCLIA [id number] [place], [place] [address]YQV (RBC) [Entitic vol]92.6 oPYmqmpg85.0-100.0[facility] on above:Order Comment: Specimen Type: BLOOD SPECIMENOrdering Facility: [facility] Address:[address] [place], [place] [address]Performed By: #### 31172-6 ####[facility] LABCLIA [id number] [place], [place] [address]Qqofhgtpc (Bld) [#/Vol]0.42 10*3/uLNormal<0.87[facility] on above:Order Comment: Specimen Type: BLOOD SPECIMENOrdering Facility: [facility] Address:[address] [place], [place] [address]Performed By: #### 94220- 8 ####[facility] LABCLIA [id number] [place], [place] [address]Aofanzyzk/100 WBC (Bld)8.1 %NormalMarion Hospital on above:Order Comment: Specimen Type: BLOOD SPECIMENOrdering Facility: [facility] Address:[address] [place], [place] [address]Performed By: #### 42352-6 ####[facility] LABCLIA [id number] [place], [place] [address]Bssjcefndfh (Bld) [#/Vol]2.42 10*3/uLNormal1.45-7.50[facility] on above:Order Comment: Specimen Type: BLOOD SPECIMENOrdering Facility: [facility] Address:[address] [place], [place] [address]Performed By: #### 07545-8 ####[facility] LABCLIA [id number] [place], [place] [address]Oivufaviuhx/100 WBC (Bld)46.8 %NormalMarion Hospital on above:Order Comment: Specimen Type: BLOOD SPECIMENOrdering Facility: [facility] Address:[address] [place], [place] [address]Performed By: #### 82494-2 ####[facility] LABCLIA [id number] [place], [place] [address]Dtbzkefpg RBC (Bld) [#/Vol] 10*3/uLNormal<0.01[facility] on above:Order Comment: Specimen Type: BLOOD SPECIMENOrdering Facility: [facility] Address:[address] [place], [place] [address]Performed By: #### 98673-4 ####[facility] LABCLIA [id number] [place], [place] [address]Ovwfmwcne RBC/100 WBC (Bld) [Ratio]0.0 /100 WBCNormal [facility] on above:Order Comment: Specimen Type: BLOOD SPECIMENOrdering Facility: [facility] Address:[address] [place], [place] [address]Performed By: #### 63799-2 ####[facility] LABIA [id number] [place], [place] [address]Augxfleg mean volume (Bld) [Entitic vol]10.5 fLNormal9.0-12.7COhioHealth Riverside Methodist Hospital on above:Order Comment: Specimen Type: BLOOD SPECIMENOrdering Facility: [facility] Address:[address] [place] [address] Performed By: #### 68980-9 ####[facility] LABIA [id number] [place], [place] [address]Jqpwvuocv (Bld) [#/Vol]179 10*3/uQDhqmvm921-620ZxrqeyuihMarion Hospital on above:Order Comment: Specimen Type: BLOOD SPECIMENOrdering Facility: [facility] Address:[address] [place], [place] [address]Performed By: #### 07169-9 ####[facility] LABCLIA [id number] [place], [place] [address]CIC (Bld) [#/Vol]4.48 10*6/uLNormal3.90-5.20[facility] on above:Order Comment: Specimen Type: BLOOD SPECIMENOrdering Facility: [facility] Address:[address] [place], [place] [address]Performed By: #### 90953-6 ####[facility] LABCLIA [id number] [place], [place] [address]PVF (Bld) [#/Vol]5.17 10*3/uLNormal3.70-11.00[facility] on above: Order Comment: Specimen Type: BLOOD SPECIMENOrdering Facility: [facility] Address:[address] [place], [place] [address]Performed By: #### 20145- 8 ####[facility] LABIA [id number] [place], [place] [address]IGK SerPl-mCncon 28-53-4197BCT [Mass/Vol]mg/LNormal<0.9 [facility] on above:Order Comment: Specimen Type: BLOOD SPECIMENOrdering Facility: [facility] Address:[address] [place], [place] [address]Performed By: #### 1798-8, 1987-5, 3040-3 ####[facility] LABCLIA [id number] [place] [address] [id number] [place] STATES OF AMERICAComprehensive metabolic 2000 panelon 12-27-2023 Albumin [Mass/Vol]4.6 g/dLNormal3.9-4.9COhioHealth Riverside Methodist Hospital on above:Order Comment: Specimen Type: BLOOD SPECIMENOrdering Facility: [facility] Address:[address] [place], [place] [address]Performed By: #### 62459-4 ####[facility] LABIA [id number] [place], [place] [address]PGE [Catalytic activity/Vol]53 U/GPdufsl34-149 [facility] on above:Order Comment: Specimen Type: BLOOD SPECIMENOrdering Facility: [facility] Address:[address] [place], [place] [address]Performed By: #### 92321-1 ####[facility] LABCLIA [id number] MARCELA PRAVEENOASIS BE[facility] HOSPITALGENETWARREN, [place] [address]UTH [Catalytic activity/Vol]9 U/LNormal7-38[facility] on above:Order Comment: Specimen Type: BLOOD SPECIMENOrdering Facility: [facility] Address:[address] [place], [place] [address]Performed By: #### 80360- 8 ####[facility] LABCLIA [id number] [facility] [place], [place] [address]Ghaxz gap [Moles/Vol]6 mmol/LLow8-15[facility] on above:Order Comment: Specimen Type: BLOOD SPECIMENOrdering Facility: [facility] Address:[address] [place], [place] [address]Performed By: #### 24138-1 ####[facility] LABCLIA [id number] [facility] ADYFERNANDAOASIS BEHAVIORAL HEALTH HOSPITALEZEKIELPINGREE, [place] [address]YGM [Catalytic activity/Vol]14 U/KFwxpmb52-29FzufzatixMarion Hospital on above:Order Comment: Specimen Type: BLOOD SPECIMENOrdering Facility: [facility] Address:[address] [place], [place] [address]Performed By: #### 39815-6 ####[facility] LABCLIA [id number] [facility] ADYFERNANDAOASIS BEHAVIORAL [place] [address] Bilirubin [Mass/Vol]0.5 mg/dLNormal0.2-1.3COhioHealth Riverside Methodist Hospital on above:Order Comment: Specimen Type: BLOOD SPECIMENOrdering Facility: [facility] Address:[address] [place], [place] [address]Performed By: #### 64203-9 ####[facility] LABCLIA [id number] [facility] HOSPITALFERNANDASAINT [place], [place] [address]Vsmngzn [Mass/Vol]10.2 mg/dLNormal8.5-10.2COhioHealth Riverside Methodist Hospital on above:Order Comment: Specimen Type: BLOOD SPECIMENOrdering Facility: [facility] Address:[address] [place], [place] [address]Performed By: #### 47745-2 ####[facility] LABCLIA [id number] [place], [place] [address]Gpdhefmj [Moles/Vol]103 mmol/GIucskw03-998TqwcnlqidMarion Hospital on above: Order Comment: Specimen Type: BLOOD SPECIMENOrdering Facility: [facility] Address:[address] [place], [place] [address]Performed By: #### 01376- 8 ####[facility] LABCLIA [id number] [place], [place] [address]WQ9 [Moles/Vol]28 mmol/LLmwxwk44-64DorpcvgjkMarion Hospital on above:Order Comment: Specimen Type: BLOOD SPECIMENOrdering Facility: [facility] Address:[address] [place], [place] [address]Performed By: #### 20981-0 ####[facility] LABCLIA [id number] [place], [place] [address]Fcuqyzlkcd [Mass/Vol]0.68 mg/dL Normal0.58-0.96[facility] on above:Order Comment: Specimen Type: BLOOD SPECIMENOrdering Facility: [facility] Address:[address] [place], [place] [address]Performed By: #### 24029-8 ####[facility] LABCLIA [id number] [place], [place] [address]Wzaqzzklht and Glomerular filtration rate.predicted panel (S/P/Bld)124 mL/min/1.73m???Normal>=60[facility] on above:Order Comment: Specimen Type: BLOOD SPECIMENOrdering Facility: [facility] Address:[address] [place], [place] [address]Result Comment: Estimated Glomerular Filtration Rate (eGFR) is [...] not accurately reflect actual GFR.Performed By: #### 95927-7 ####[facility] LABCLIA [id number] [place], [place] [address]Autgtrc [Mass/Vol]97 mg/uQFyczvf76-54FqkzacfhkMarion Hospital on above:Order Comment: Specimen Type: BLOOD SPECIMENOrdering Facility: [facility] Address:[address] [place] [address]Yjzkzd Comment: The [place] Diabetes Association (ADA) provides guidance for cutoff [...] Standards of Medical Care in Diabetes 2016, [place] Diabetes Association. Diabetes Care. 2016.39(Suppl 1).Performed By: #### 94745-2 ####[facility] LABCLIA [id number] [place], [place] [address]Ibpxgwvcd [Moles/Vol]4.3 mmol/LNormal3.7-5.1COhioHealth Riverside Methodist Hospital on above:Order Comment: Specimen Type: BLOOD SPECIMENOrdering Facility: [facility] Address:[address] [place], [place] [address]Gwrbolzjk By: #### 78711-5 ####[facility] LABCLIA [id number] [place], [place] [address]Ostjckf [Mass/Vol]7.2 g/dLNormal6.3-8.0[facility] on above:Order Comment: Specimen Type: BLOOD SPECIMENOrdering Facility: [facility] Address:[address] [place], [place] [address]Performed By: #### 23276- 8 ####[facility] LABCLIA [id number] [place], [place] [address]Mjofuc [Moles/Vol]137 mmol/LHltrnu244-569WngbwzyovMarion Hospital on above:Order Comment: Specimen Type: BLOOD SPECIMENOrdering Facility: [facility] Address:[address] [place], [place] [address]Performed By: #### 62826-0 ####[facility] LABCLIA [id number] [place], [place] [address]Dwaf nitrogen [Mass/Vol]13 mg/dLNormal7-21[facility] on above:Order Comment: Specimen Type: BLOOD SPECIMENOrdering Facility: [facility] Address:[address] [place], [place] [address]Performed By: #### 07100-3 ####[facility] LABCLIA [id number] [place], [place] [address]RPF Westergren method (Bld) [Velocity]on 05-30-1439IQD (Bld) [Velocity]12 mm/hNormal0-20[facility] on above: Order Comment: Specimen Type: BLOOD SPECIMENOrdering Facility: [facility] Address:[address] [place], [place] [address]Performed By: #### 4537-7 ####[facility] LABCLIA [id number] [facility] Z61IUNIJLWGCREBECCA VIL[place] [id number] [place] OF AMERICAEosinophils/100 WBC Auto (Bld)on 02-74-0471Zzqhzqeeusr/100 WBC (Bld)4.3 %[facility] Erythrocyte distribution width Auto (RBC) [Ratio]on 70-10-6327Vzamlcmhidj distribution width (RBC) [Ratio]11.6 %11.5-15.0[facility] Hematocrit Auto (Bld) [Volume fraction]on 57-66-0733Hizeyznfth (Bld) [Volume fraction]41.5 %36.0-46.0[facility] NorthHemoglobin [Mass/volume] in Bloodon 13-08-0224Lfcxjagrbe (Bld) [Mass/Vol]14.1 g/dL11.5-15.5 [facility] NorthLaboratory - Chemistry and Chemistry - challengeon 32-08-2104Cgyvhdc [Mass/Vol]4.6 g/dL3.9-4.9[facility] NorthALP [Catalytic activity/Vol]53 U/A82-382KdjdjnhdeSelect Medical Specialty Hospital - Cincinnati NorthALT [Catalytic activity/Vol]9 U/L7-38[facility] Amylase [Catalytic activity/Vol]44 U/B58-160RlvdkxfxdSelect Medical Specialty Hospital - Cincinnati NorthAST [Catalytic activity/Vol]14 U/H73-61WnfbplskgSelect Medical Specialty Hospital - Cincinnati NorthBilirubin [Mass/Vol]0.5 mg/dL0.2-1.3FSt. Mary's Medical Center, Ironton CampusCalcium [Mass/Vol] 10.2 mg/dL8.5-10.2FSt. Mary's Medical Center, Ironton CampusChloride [Moles/Vol]103 mmol/Z72-407SdwklxbreSelect Medical Specialty Hospital - Cincinnati NorthCO2 [Moles/Vol]28 mmol/L22-30 [facility] NorthCreatinine [Mass/Vol]0.68 mg/dL0.58-0.96 [facility] NorthGlucose [Mass/Vol]97 mg/lN58-25EnzetvntrSelect Medical Specialty Hospital - Cincinnati NorthComment on above:The [place] Diabetes Association (ADA) provides guidance for cutoff [...] diabetes.Reference: Standardsof Medical Care in Diabetes 2016, [place] Diabetes Association. Diabetes Care. 2016.39(Suppl 1).Lipase [Catalytic activity/Vol]22 U/W51-39QcdtpocxcSelect Medical Specialty Hospital - Cincinnati NorthPotassium [Moles/Vol]4.3 mmol/L3.7-5.1 [facility] Health Administrationodium [Moles/Vol]137 mmol/G698-779QcgivckwmSelect Medical Specialty Hospital - [facility] NorthUrea nitrogen [Mass/Vol]13 mg/dL7-21[facility] NorthLaboratory - Hematology and Cell countson 46-73-5704Ngmkqmbfpvj (Bld) [#/Vol]0.22 10*3/uL<0.46[facility] NorthESR (Bld) [Velocity]12 mm/h0-20[facility] NorthImmature granulocytes/100 WBC (Bld)0.2 %[facility] NorthLeukocytes [#/volume] corrected for nucleated erythrocytes in Blood by Automated counon 15-98-4146OIO corrected for nucl RBC Auto (Bld) [#/Vol]5.17 k/uL3.70-11.00[facility] NorthLipase SerPl-cCncon 64-75-2794Wmefin [Catalytic activity/Vol]22 U/LNormal 16-61Promedica Memorial HospitalComment on above:Order Comment: Specimen Type: BLOOD SPECIMENOrdering Facility: [facility] Address:[address] [place], [place] [address]Performed By: #### 1798-8, 5, 3040-3 ####[facility] LABCLIA [id number] [place] [address] [place] AMERICALymphocytes Auto (Bld) [#/Vol]on 12-27-2023 Lymphocytes (Bld) [#/Vol]2.06 10*3/uL1.00-4.00[facility] Lymphocytes/100 WBC Auto (Bld)on 88-84-4575Lhjfgncyzty/100 WBC (Bld)39.8 % [facility] NorthMCH Auto (RBC) [Entitic mass]on 08-94-2827YNG (RBC) [Entitic mass]31.5 pg26.0-34.0[facility]MCHC Auto (RBC) [Mass/Vol]on 72-43-1562BJPR (RBC) [Mass/Vol]34.0 g/dL30.5-36.0[facility] NorthMCV Auto (RBC) [Entitic vol]on 76-99-9403IKX (RBC) [Entitic vol]92.6 fL80.0-100.0[facility] NorthMonocytes Auto (Bld) [#/Vol]on 63-14-2082Xwypdizpl (Bld) [#/Vol]0.42 10*3/uL<0.87[facility]Monocytes/100 WBC Auto (Bld)on 54-26-3208Azfduoxsk/100 WBC (Bld)8.1 %[facility] NorthNeutrophils Auto (Bld) [#/Vol]on 96-82-5163Fehicjxofrh (Bld) [#/Vol]2.42 10*3/uL1.45-7.50[facility] NorthNeutrophils/100 WBC Auto (Bld)on 44-48-6188Tvffntenthy/100 WBC (Bld)46.8 %[facility] [facility]No Panel Informationon 95-70-9494V- Reactive Protein, Quantitative<0.3 mg/dL<0.9[facility] Estimated GFR (CKD-EPI)124 mL/min/1.73m???>=60[facility] Comment on above:Estimated Glomerular Filtration Rate (eGFR) [...] accurately reflect actual GFR.Immature Granulocyte # (Auto)<0.03 k/uL<0.10[facility] NorthNucleated RBC Auto (Bld) [#/Vol]on 57-49-4371Rmjdkfife RBC (Bld) [#/Vol]10*3/uL<0.01 [facility] NorthNucleated erythrocytes [Presence] in Blood by Automated counton 27-87-2949Hyngxqsrk RBC Auto Ql (Bld)0.0 /100{WBC}[facility] NorthPlatelet mean volume Auto (Bld) [Entitic vol]on 52-72-4306Fiulkzoy mean volume (Bld) [Entitic vol]10.5 fL9.0-12.7FSt. Mary's Medical Center, Ironton CampusPlatelets Auto (Bld) [#/Vol]on 03-05-5108Wjcnciqsp (Bld) [#/Vol]179 10*3/iY573-545XtmkvibzlSelect Medical Specialty Hospital - [facility] NorthProtein [Mass/volume] in Serum or Plasmaon 03-87-9527Tljzxwd [Mass/Vol]7.2 g/dL6.3-8.0[facility] NorthRBC Auto (Bld) [#/Vol]on 24-31-8520FVY (Bld) [#/Vol]4.48 10*6/uL3.90-5.20[facility]eterans Health Administrationerum or plasma anion gap determinationon 25-82-6695Lescc gap [Moles/Vol]6 mmol/LLow8-15[facility] NorthCNCOon 01-55-8528TOTANdoyvf TextNormalCSumma Health CNOVon 76-00-3083YFYBRgydyv Visit (ANP818) CHIOMA ALONZO ([id number]) 2000 F Date Time Provider Department 12/05/23 2:00 PM ARIELLA MCCOY CYA119 During your visit today, we recorded the [...] Ariella Mccoy APRN.CNP Referring Provider: ANALIA HOLLIDAY [[id number]] Allergies As of Date: 12/05/2023 Noted Allergy Reaction METRONIDAZOLE 09/07/2020 1 - Mental Status Change 6 - Diarrhea 8 - GI Upset 4 - Hives 14 - Other: See Comments 2 - Rash 12 - Shortness of Breath 16 - Unknown 11 - Vomiting Date Reviewed: 12/05/2023 Reviewed by: Ariella Mccoy APRN.BLIND HANGER - Fully Assessed Reason for Visit: Post [...] for Encounter Date Provider Department Center 12/05/2023 [id number] MCCYO [id number] [facility] Encounter Status:Closed by ARIELLA MCCOY on 12/05/23[facility]AN[facility] POSTPROC EVALon 07-81-8250ALVI POSTPROC EVALHNO ID: [id number] Author: MOSHE KRISHNAMURTHY DO Service: Anesthesiology Author [...] November 21, 2023 TIME: 5:47 PM CSN: [id number]tts Eye & [facility] PRE-OPon 81-87-8231QVBL PRE-OPHNO ID: [id number] Author: MOSHE KRISHNAMURTHY DO Service: Anesthesiology Author [...] November 21, 2023 TIME: 2:08 PM CSN: [id number] John of God Hospital OP NOTon 11-21-2023 BRIEF OP NOTHNO ID: [id number] Author: ANA LLANES MD Service: General Surgery Author Type: Resident Type: Brief Op Note Filed: 11/21/2023 15:32 Note Text: GENERAL SURGERY BRIEF OPERATIVE NOTE Chioma Alonzo [id number] LOG ID: [id number] Surgery/Procedure Date: 11/21/2023 Incision/Procedure Start Time: 2:30 PM Incision Close/Procedure End Time: 3:23 PM Surgeon(s)/Proceduralist(s) and Bushler(s): Surgeon(s) and Role: * Seema Davis MD [...] 21, 2023 TIME: 3:31 PM PAGER/CONTACT #: [phone] HospitalOPERATIVE NOon 20-36-9247IAHZNWBSH NOHNO ID: [id number] Author: SEEMA DAVIS MD Service: General Surgery Author Type: Physician Type: Operative Report Filed: 11/23/2023 14:05 Note Text: [facility] - Operative Report CHIOMA ALONZO : 2000 AGE: 23. SEX: F PATIENT TYPE: A HOSP SV: [facility] LOCATION: [facility] ATTENDING PHYSICIAN: Seema Davis M.D. CSN NUMBER: [id number] DATE OF SURGERY/PROCEDURE: 11/21/2023 INCISION/PROCEDURE START TIME: 2:30 PM INCISION CLOSE/PROCEDURE END TIME: 3:23 PM PREOPERATIVE DIAGNOSIS: Epigastric and right upper quadrant abdominal pain. POSTOPERATIVE DIAGNOSIS: Epigastric and right upper quadrant abdominal pain. SURGEON: Seema Davis M.D. DIRECTOR CORPORATE SECURITY: Ana Llanes M.D. SURGERY/PROCEDURE: Laparoscopic cholecystectomy. ANESTHESIA: [...] infraumbilical site was closed with a single shqkwo-oz-cgewn #0 Vicryl suture, local anesthetic was infiltrated and this was closed in layers with 3-0 Vicryl. The 5 mm sites were closed with 4-0 Monocryl. The wounds were washed and dried and Exofin glue applied. Patient was awakened and taken to Recovery in satisfactory condition. All counts were correct x2. I was present for the entire operation. Seema Davis M.D. :[id number] [facility] ED [id number] EDHNO ID: [id number] Author: JUAN NIEVES RN Service: Nursing Author [...] REFERRAL (RECOMMENDATION): None Electronically Signed By: Juan RaderSaints Medical Center EDHNO ID: [id number] Author: CRISTI WITT RN Service: ? Author [...] REFERRAL (RECOMMENDATION): None Electronically Signed By: Cristi [facility] PATHOLOGYon 15-66-4895LOQW REPORTLemuel Shattuck HospitalComment on above:Order Comment: Specimen Type: TISSUE SPECIMENOrdering Facility: [facility] Address: [address] [place] [address] Comment: Surgical Pathology Report Case: [id number] Authorizing Provider: Seema Davis MD Collected: 11/21/2023 02:39 PM Ordering Location: [facility] Received: 11/22/2023 07:43 AM Operating Room Pathologist: Woodrow Rain MD Specimen: GallbladderPerformed By: #### S ####[facility] LABCLIA [id number] [address] HISTORYLemuel Shattuck HospitalComment on above:Order Comment: Specimen Type: TISSUE SPECIMENOrdering Facility: [facility] Address: [address] [place], [place] [address]Result Comment: Pre-op diagnosis: Cholecystitis [K81.9]Performed By: #### S ####[facility] LABCLIA [id number] [address] StreetComment on above:Order Comment: Specimen Type: TISSUE SPECIMENOrdering Facility: [facility] Address: [address] [place], [place] [address]Result Comment: A. Gallbladder, cholecystectomy: -Gallbladder with no diagnostic abnormality. Performed By: #### S ####[facility] LABCLIA [id number] [address]ETFINAL PERFORMING LAB Lemuel Shattuck HospitalComment on above:Order Comment: Specimen Type: TISSUE SPECIMENOrdering Facility: [facility] Address: [address] [place] [address]Tgnjtz Comment: Diagnostic interpretation performed at [facility], [address] [place], [place] [address] CLIA# [id number] Van Driver Helper: Roverto Coleman M.D.Performed By: #### S ####[facility] LABCLIA [id number] [address] STATES OF AMERICAGROSS DESCRIPTIONA. GallbladderNormWinchendon HospitalComment on above:Order Comment: Specimen Type: TISSUE SPECIMENOrdering Facility: [facility] Address: [address] [place], [place] [address]Result Comment: Received in formalin designated gallbladder is [...] with a wall thickness of 0.1 cm. Sign Installer sections are submitted in 1 cassette. WE November 22, 2023 11:51 AM Gross examination performed at [facility], [address] [address] [place], [place] [address]Performed By: #### S ####[facility] LABCLIA [id number] [place] [address] [place] AMERICABasophils Auto (Bld) [#/Vol]on 10-13-2853Ifyxhcqrz (Bld) [#/Vol]0.04 10*3/uL<0.11[facility] NorthBasophils/100 WBC Auto (Bld)on 61-48-7786Ncvjtonve/100 WBC (Bld)0.7 %[facility] NorthBlood manual differential comment interpretation narrativeon 40-02-9118Hljrqz differential comment Ganga (Bld) [Interp]AutoSelect Medical Specialty Hospital - [facility] NorthCBC W Auto Differential panel (Bld)on 93-03-3748Nligbmogc (Bld) [#/Vol]0.04 10*3/uL NINFCohiohealth southeastern medical center ClinicBasophils/100 WBC (Bld)0.7 %[facility] HospitalDifferential cell count method Nom (Bld)AutoCleveland ClinicEosinophils (Bld) [#/Vol]0.19 10*3/uLNINFMarietta Memorial HospitalEosinophils/100 WBC (Bld)3.4 %[facility] Erythrocyte distribution width (RBC) [Ratio]11.6 %11.5 - 15.0 %[facility] Hematocrit (Bld) [Volume fraction]37.7 %36.0 - 46.0 %[facility] HospitalHemoglobin (Bld) [Mass/Vol]12.6 g/dL11.5 - 15.5 g/dLMarietta Memorial HospitalImmature granulocytes (Bld) [#/Vol]NINFClevelFostoria City HospitalImmature granulocytes/100 WBC (Bld)0.2 % [facility] HospitalLymphocytes (Bld) [#/Vol]2.43 10*3/uLMarietta Memorial Hospital Lymphocytes/100 WBC (Bld)43.6 %[facility] CenterH (RBC) [Entitic mass]31.9 pg 26.0 - 34.0 pgCSelect Medical OhioHealth Rehabilitation HospitalHC (RBC) [Mass/Vol]33.4 g/dL30.5 - 36.0 g/dL [facility] Medical CenterV (RBC) [Entitic vol]95.4 fL80.0 - 100.0 fLCBlanchard Valley Health System Bluffton Hospital Monocytes (Bld) [#/Vol]0.47 10*3/uLNINFMarietta Memorial HospitalMonocytes/100 WBC (Bld) 8.4 %[facility] HospitalNeutrophils (Bld) [#/Vol]2.43 10*3/uLMarietta Memorial Hospital Neutrophils/100 WBC (Bld)43.7 %[facility] HospitalNucleated RBC (Bld) [#/Vol]NINF [facility] HospitalNucleated RBC/100 WBC (Bld) [Ratio]0.0 %/100 WBCMarietta Memorial Hospital Platelet mean volume (Bld) [Entitic vol]10.5 fL9.0 - 12.7 fLCBlanchard Valley Health System Bluffton Hospital Platelets (Bld) [#/Vol]201 10*3/uLMarietta Memorial HospitalRBC (Bld) [#/Vol]3.95 10*6/uL 3.90 - 5.20 m/Samaritan HospitalWBC (Bld) [#/Vol]5.57 10*3/[facility] Washington TownshipBasophils (Bld) [#/Vol]0.04 10*3/uLNormal<0.11[facility] Comment on above:Order Comment: Specimen Type: BLOOD SPECIMEN [facility] Address: [address] [place], [place] [address]Performed By: #### 18424-1 #### [facility] CLIA [id number] [address] [place] [address] [place] AMERICABasophils/100 WBC (Bld)0.7 %NormalAv HospitalComment on above:Order Comment: Specimen Type: BLOOD SPECIMEN [facility] Address: [address] [place], [place] [address]Performed By: #### 10637-7 #### [facility] CLIA [id number] [address] [place] [address] [place] AMERICADifferential cell count method Nom (Bld) AutoNormalAvon HospitalComment on above:Order Comment: Specimen Type: BLOOD SPECIMEN [facility] Address: [address] [place], [place] [address]Performed By: #### 86290-9 #### [facility] CLIA [id number] [address] [place] [address] [place] AMERICAEosinophils (Bld) [#/Vol]0.19 10*3/uL Normal<0.46Avon HospitalComment on above:Order Comment: Specimen Type: BLOOD SPECIMEN [facility] Address: [address] [place], [place] [address]Performed By: #### 90488-4 #### [facility] CLIA [id number] [address] [place] [address] [place] AMERICAEosinophils/100 WBC (Bld)3.4 %NormalAv HospitalComment on above:Order Comment: Specimen Type: BLOOD SPECIMEN [facility] Address: [address] [place], [place] [address]Performed By: #### 10206-8 #### [facility] IA [id number] [address] [place] [address] [place] AMERICAErythrocyte distribution width (RBC) [Ratio]11.6 %Ekyjio79.5-15.0Avon HospitalComment on above:Order Comment: Specimen Type: BLOOD SPECIMEN [facility] Address: [address] [place], [place] [address]Performed By: #### 28935-9 #### [facility] IA [id number] [address] [place] [address] [place] AMERICAHematocrit (Bld) [Volume fraction]37.7 % Tlnxkj26.0-46.0Av HospitalComment on above:Order Comment: Specimen Type: BLOOD SPECIMEN [facility] Address: [address] [place], [place] [address]Performed By: #### 91672-5 #### [facility] IA [id number] [address] [place] [address] [place] AMERICAHemoglobin (Bld) [Mass/Vol]12.6 g/dL Pejqot94.5-15.5Avon HospitalComment on above:Order Comment: Specimen Type: BLOOD SPECIMEN [facility] Address: [address] [place], [place] [address]Performed By: #### 76160-6 #### [facility] IA [id number] [address] [place] [address] [place] AMERICAImmature granulocytes (Bld) [#/Vol] 10*3/uLNormal<0.10Avon HospitalComment on above:Order Comment: Specimen Type: BLOOD SPECIMEN [facility] Address: [address] [place], [place] [address]Performed By: #### 21317-5 #### [facility] IA [id number] [address] [place] [address] [place] AMERICAImmature granulocytes/100 WBC (Bld)0.2 % NormalAv HospitalComment on above:Order Comment: Specimen Type: BLOOD SPECIMEN [facility] Address: [address] [place], [place] [address]Performed By: #### 69444-8 #### [facility] CLIA [id number] [address] [place] [address] [place] AMERICALymphocytes (Bld) [#/Vol]2.43 10*3/uL Normal1.00-4.00Av HospitalComment on above:Order Comment: Specimen Type: BLOOD SPECIMEN [facility] Address: [address] [place], [place] [address]Performed By: #### 02265-5 #### [facility] IA [id number] [place] [address] [place] OF AMERICALymphocytes/100 WBC (Bld)43.6 %NormalAv HospitalComment on above:Order Comment: Specimen Type: BLOOD SPECIMEN [facility] Address: [address] [place], [place] [address]Performed By: #### 28544-2 #### [facility] IA [id number] [address] [place] [address] [facility] (RBC) [Entitic mass]31.9 pgNormal 26.0-34.0Av HospitalComment on above:Order Comment: Specimen Type: BLOOD SPECIMEN [facility] Address: [address] [place], [place] [address]Performed By: #### 50311-2 #### [facility] IA [id number] [place] [address] [facility] (RBC) [Mass/Vol]33.4 g/dLNormal 30.5-36.0Av HospitalComment on above:Order Comment: Specimen Type: BLOOD SPECIMEN [facility] Address: [address] [place], [place] [address]Performed By: #### 99747-4 #### [facility] IA [id number] [address] [place] [address] [place] AMERICAMCV (RBC) [Entitic vol]95.4 fLNormal 80.0-100.0Av HospitalComment on above:Order Comment: Specimen Type: BLOOD SPECIMEN [facility] Address: [address] [place], [place] [address]Performed By: #### 87491-0 #### [facility] IA [id number] [address] [place] [address] [place] AMERICAMonocytes (Bld) [#/Vol]0.47 10*3/uLNormal <0.87Av HospitalComment on above:Order Comment: Specimen Type: BLOOD SPECIMEN [facility] Address: [address] [place], [place] [address]Performed By: #### 09766-3 #### [facility] IA [id number] [address] [place] [address] [place] AMERICAMonocytes/100 WBC (Bld)8.4 %NormalAv HospitalComment on above:Order Comment: Specimen Type: BLOOD SPECIMEN [facility] Address: [address] [place], [place] [address]Performed By: #### 75728-6 #### [facility] IA [id number] [address] [place] [address] [place] AMERICANeutrophils (Bld) [#/Vol]2.43 10*3/uL Normal1.45-7.50Av HospitalComment on above:Order Comment: Specimen Type: BLOOD SPECIMEN [facility] Address: [address] [place], [place] [address]Performed By: #### 71137-3 #### [facility] IA [id number] [address] [place] [address] [place] AMERICANeutrophils/100 WBC (Bld)43.7 %NormalAv HospitalComment on above:Order Comment: Specimen Type: BLOOD SPECIMEN [facility] Address: [address] [place], [place] [address]Performed By: #### 83576-1 #### [facility] IA [id number] [address] [facility] [place] [address] [place] AMERICANucleated RBC (Bld) [#/Vol]10*3/uLNormal <0.01Avon HospitalComment on above:Order Comment: Specimen Type: BLOOD SPECIMEN [facility] Address: [address] [place], [place] [address]Performed By: #### 84995-6 #### [facility] IA [id number] [address] [place] [address] [place] AMERICANucleated RBC/100 WBC (Bld) [Ratio]0.0 /100 WBCNormalAvon HospitalComment on above:Order Comment: Specimen Type: BLOOD SPECIMEN [facility] Address: [address] [place], [place] [address]Performed By: #### 18479-7 #### [facility] IA [id number] [address] [place] [address] [place] AMERICAPlatelet mean volume (Bld) [Entitic vol] 10.5 fLNormal9.0-12.7Avon HospitalComment on above:Order Comment: Specimen Type: BLOOD SPECIMEN [facility] Address: [address] [place], [place] [address]Performed By: #### 03991-2 #### [facility] IA [id number] [address] [facility] [place] [address] [place] AMERICAPlatelets (Bld) [#/Vol]201 10*3/uLNormal 150-400Avon HospitalComment on above:Order Comment: Specimen Type: BLOOD SPECIMEN [facility] Address: [address] [place], [place] [address]Performed By: #### 63747-9 #### [facility] IA [id number] [address] [facility] [place] [address] [facility] HOSPITALRB (Bld) [#/Vol]3.95 10*6/uLNormal 3.90-5.20Av HospitalComment on above:Order Comment: Specimen Type: BLOOD SPECIMEN [facility] Address: [address] [place] [id number] By: #### 57217-4 #### [facility] CLIA [id number] [address] [place] [address] [facility] HOSPITALW (Bld) [#/Vol]5.57 10*3/uLNormal 3.70-11.00Av HospitalComment on above:Order Comment: Specimen Type: BLOOD SPECIMEN [facility] Address: [address] [place] [address]Performed By: #### 86780-8 #### [facility] CLIA [id number] [address]CNPNon 87-89-8608PCWSGwoxtrmqr (AVPANE) CHIOMA ALONZO ([id number]) 2000 F Date Time Provider Department 11/15/23 [...] as scheduled? Event monitor preliminary reading in [facility]/Telemetry [ID [id number]] ECHO completed in [employer]. Of note she also has been to [...] Sedrick Rushing MD You; Wilfredo Avila OCCA; [facility] Card Nurse 9 hours ago (10:29 PM) [...] PM Signed Faxed Cardiac Clearance form to [facility] General Surgery at [phone]. Scanned into chart. CHATO Ramirez Allergies As [...] 11/15/2023 Encounter Status:Closed by MADHU CAUSEY [facility]/23[facility] Comprehensive metabolic 2000 panelon 80-96-3440Mrioibr [Mass/Vol]4.4 g/dL3.9 - 4.9 g/dLNew Richland ClinicALP [Catalytic activity/Vol]47 U/L34 - 123 U/LCleveland ClinicALT [Catalytic activity/Vol]8 U/L7 - 38 U/LCleveland ClinicAnion gap [Moles/Vol]11 mmol/L9 - 18 mmol/LCleveland ClinicAST [Catalytic activity/Vol]18 U/L13 - 35 U/LCleveland ClinicBilirubin [Mass/Vol]0.4 mg/dL0.2 - 1.3 mg/dL [place] ClinicCalcium [Mass/Vol]9.6 mg/dL8.5 - 10.2 mg/dLMarietta Memorial Hospital Chloride [Moles/Vol]103 mmol/L97 - 105 mmol/LCleveland ClinicCO2 [Moles/Vol]24 mmol/L22 - 30 mmol/LCleveland ClinicCreatinine [Mass/Vol]0.75 mg/dL0.58 - 0.96 mg/dLMarietta Memorial HospitalGFR/1.73 sq M.predicted among non-blacks MDRD (S/P/Bld) [Vol rate/Area]114 mL/min/{1.73_m2}- PINFCBlanchard Valley Health System Bluffton HospitalComment on above: Estimated Glomerular Filtration Rate [...] eGFRmay not accurately reflect actual GFR.Glucose [Mass/Vol]109 mg/qVJiky99 - 99 mg/dLMarietta Memorial HospitalComment on above:The [place] Diabetes Association (ADA) provides guidance for cutoff [...] Standards of Medical Care in Diabetes 2016, [place] [employer] Association. Diabetes Care. 2016.39(Suppl 1). Interpretation and review of laboratory resultsAbnormalCleveland ClinicPotassium [Moles/Vol]4.5 mmol/L3.7 - 5.1 mmol/LCleveland ClinicProtein [Mass/Vol]6.9 g/dL 6.3 - 8.0 g/dLNew Richland ClinicSodium [Moles/Vol]138 mmol/L136 - 144 mmol/L [place] ClinicUrea nitrogen [Mass/Vol]16 mg/dL7 - 21 mg/dLPromedica Memorial Hospital ClinicAlbumin [Mass/Vol]4.4 g/dLNormal3.9-4.9Avon HospitalComment on above:Order Comment: Specimen Type: BLOOD SPECIMEN [facility] Address: [address] [place], [place] [address]GAT[place] [id number] By: #### 71203-3 #### [facility] CLIA [id number] [address] [place] [address] [place] AMERICAALP [Catalytic activity/Vol]47 U/LNormal 34-123Avon HospitalComment on above:Order Comment: Specimen Type: BLOOD SPECIMEN [facility] Address: [address] [place], [place] [address]Performed By: #### 49194-4 #### [facility] CLIA [id number] [address] [place] [address] [place] AMERICAALT [Catalytic activity/Vol]8 U/LNormal 7-38Avon HospitalComment on above:Order Comment: Specimen Type: BLOOD SPECIMEN [facility] Address: [address] [place], [place] [address]Performed By: #### 86849-9 #### [facility] IA [id number] [address] [place] [address] [place] AMERICAAnion gap [Moles/Vol]11 mmol/LNormal9-18 Stites HospitalComment on above:Order Comment: Specimen Type: BLOOD SPECIMEN [facility] Address: [address] [place], [place] [address]Performed By: #### 16976-4 #### [facility] IA [id number] [address] [place] [address] [place] AMERICAAST [Catalytic activity/Vol]18 U/LNormal 13-35Avon HospitalComment on above:Order Comment: Specimen Type: BLOOD SPECIMEN [facility] Address: [address] [place], [place] [address]Performed By: #### 44614-2 #### [facility] IA [id number] [address] [place] [address] [place] AMERICABilirubin [Mass/Vol]0.4 mg/dLNormal 0.2-1.3Avon HospitalComment on above:Order Comment: Specimen Type: BLOOD SPECIMEN [facility] Address: [address] [place], [place] [address]Performed By: #### 59787-2 #### [facility] IA [id number] [address] [place] [address] [place] AMERICACalcium [Mass/Vol]9.6 mg/dLNormal8.5-10.2 Stites HospitalComment on above:Order Comment: Specimen Type: BLOOD SPECIMEN [facility] Address: [address] [place], [place] [address]Performed By: #### 64338-8 #### [facility] IA [id number] [address] [place] [address] [place] AMERICAChloride [Moles/Vol]103 mmol/LNormal 97-105Av HospitalComment on above:Order Comment: Specimen Type: BLOOD SPECIMEN [facility] Address: [address] [place], [place] [address]Performed By: #### 32081-8 #### [facility] IA [id number] [address] [place] [address] [place] AMERICACO2 [Moles/Vol]24 mmol/ODgawga29-03Xdsd HospitalComment on above:Order Comment: Specimen Type: BLOOD SPECIMEN [facility] Address: [address] [place], [place] [address]Performed By: #### 46821-8 #### [facility] IA [id number] [address] [place] [address] [place] AMERICACreatinine [Mass/Vol]0.75 mg/dLNormal 0.58-0.96Stites HospitalComment on above:Order Comment: Specimen Type: BLOOD SPECIMEN [facility] Address: [address] [place], [place] [address]Performed By: #### 18597-3 #### [facility] IA [id number] [address] [place] [address] [place] OF AMERICACreatinine and Glomerular filtration rate.predicted panel (S/P/Bld)114 mL/min/1.73m???Normal>=60Av HospitalComment on above:Order Comment: Specimen Type: BLOOD SPECIMEN Ordering Facility: [facility] Address: [address] [place], [place] [address]Xpwhwt Comment: Estimated Glomerular Filtration Rate (eGFR) is [...] not accurately reflect actual GFR.Performed By: #### 47109-2 #### [facility] CLIA [id number] [address] [place] [address] [place] OF AMERICAGlucose [Mass/Vol]109 mg/cAPuzh31-62Yavs HospitalComment on above:Order Comment: Specimen Type: BLOOD SPECIMEN Ordering Facility: [facility] Address: [address], [place] [address]Jfkygl Comment: The [place] Diabetes Association (ADA) provides guidance for cutoff [...] Standards of Medical Care in Diabetes 2016, [place] [employer]. Diabetes Care. 2016.39(Suppl 1).Performed By: #### 23564-1 #### [facility] CLIA [id number] [address] [place] [address] [place] AMERICAPotassium [Moles/Vol]4.5 mmol/LNormal 3.7-5.1Avon HospitalComment on above:Order Comment: Specimen Type: BLOOD SPECIMEN Ordering Facility: [facility] Address: [address], [place] [address]Apwmvxcgm By: #### 48967-0 #### [facility] CLIA [id number] [address] [place] [address] [place] AMERICAProtein [Mass/Vol]6.9 g/dLNormal6.3-8.0 [facility] HospitalComment on above:Order Comment: Specimen Type: BLOOD SPECIMEN Ordering Facility: [facility] Address: [address] [place], [place] [address]Performed By: #### 54607-4 #### [facility] CLIA [id number] [address] [place] [address] [place] AMERICASodium [Moles/Vol]138 mmol/GMpnlti463-906 [facility] HospitalComment on above:Order Comment: Specimen Type: BLOOD SPECIMEN Ordering Facility: [facility] Address: [address] [place], [place] [address]Performed By: #### 92911-1 #### [facility] [place] [id number] [address] [place] [address] [place] OF AMERICAUrea nitrogen [Mass/Vol]16 mg/dLNormal 7-21Stites HospitalComment on above:Order Comment: Specimen Type: BLOOD SPECIMEN Ordering Facility: [facility] Address: [address] [place], [place] [address]Performed By: #### 02786-4 #### [facility] IA [id number] [address] [place] [address] [place] AMERICAEosinophils/100 WBC Auto (Bld)on 54-51-5522Qixlkdprubf/100 WBC (Bld)3.4 %[facility] Erythrocyte distribution width Auto (RBC) [Ratio]on 18-07-8181Jgwernnjalt distribution width (RBC) [Ratio]11.6 %11.5-15.0[facility] HISTORY PHYSICALon 97-12-6551AGAHWZO PHYSICALHNO ID: [id number] Author: MADHU CAUSEY PA-C Service: ? Author Type: Physician Bushler Type: H&P Filed: 11/16/2023 07:41 Note Text: [...] SOB. Pulse today 75, regular rhythm today [id number]-RJYK- 0 Ejection Fraction - Result: 63 % [...] Prior to Admission medications as of 11/15/23 4489 Medication Sig Last Dose Taking dicyclomine (BENTYL) 20 mg tablet Take 1 tablet by mouth q 8 HR. Taking Yes escitalopram oxalate (LEXAPRO) 10 mg tablet Take 5 mg by mouth once daily. Taking Yes ondansetron (ZOFRAN) 4 mg tablet Take 4 mg by mouth as needed. Taking Differently Yes No (more content not included)...NormalAvon HospitalHematocrit Auto (Bld) [Volume fraction]on 16-70-3172Fezkdjymla (Bld) [Volume fraction]37.7 %36.0-46.0 [facility] NorthHemoglobin [Mass/volume] in Bloodon 11-15-2023 Hemoglobin (Bld) [Mass/Vol]12.6 g/dL11.5-15.5FSt. Mary's [facility] Laboratory - Chemistry and Chemistry - challengeon 61-27-2615Xbycsgt [Mass/Vol] 4.4 g/dL3.9-4.9[facility] NorthALP [Catalytic activity/Vol]47 U/A29-137UhcbjmumcSelect Medical Specialty Hospital - [facility] NorthALT [Catalytic activity/Vol]8 U/L7-38 [facility] NorthAST [Catalytic activity/Vol]18 U/L13-35 [facility] NorthBilirubin [Mass/Vol]0.4 mg/dL0.2-1.3FSt. Mary's Medical Center, [facility] CampusCalcium [Mass/Vol]9.6 mg/dL8.5-10.2FSt. Mary's Medical Center, [facility] CampusChloride [Moles/Vol]103 mmol/E95-336EwrvgqbcuSelect Medical Specialty Hospital [facility] NorthCO2 [Moles/Vol]24 mmol/F65-59MoqtrjwrmSelect Medical Specialty Hospital - [facility] NorthCreatinine [Mass/Vol]0.75 mg/dL0.58-0.96[facility] NorthGlucose [Mass/Vol] 109 mg/aV54-95HxxlwaugpSelect Medical Specialty Hospital - Cincinnati NorthComment on above:The [place] Diabetes Association (ADA) provides guidance for cutoff [...] diabetes.Reference: Standardsof Medical Care in Diabetes 2016, [place] [employer]. Diabetes Care. 2016.39(Suppl 1). Potassium [Moles/Vol]4.5 mmol/L3.7-5.1FSelect Medical Specialty Hospital - Youngstownodium [Moles/Vol]138 mmol/D650-975NnctikiydSelect Medical Specialty Hospital - Cincinnati NorthUrea nitrogen [Mass/Vol]16 mg/dL7-21[facility] NorthLaboratory - Hematology and Cell countson 68-51-9177Wmmdfhmsnmi (Bld) [#/Vol]0.19 10*3/uL<0.46[facility] NorthImmature granulocytes/100 WBC (Bld)0.2 %[facility] NorthLeukocytes [#/volume] corrected for nucleated erythrocytes in Blood by Automated counon 23-92-0388WHN corrected for nucl RBC Auto (Bld) [#/Vol]5.57 k/uL3.70-11.00[facility] Lymphocytes Auto (Bld) [#/Vol]on 48-56-6894Gjmvajkdfuk (Bld) [#/Vol]2.43 10*3/uL 1.00-4.00[facility] NorthLymphocytes/100 WBC Auto (Bld)on 89-10-7608Vxxzlnsnacg/100 WBC (Bld)43.6 %[facility], IncH Auto (RBC) [Entitic mass]on 30-74-2879QDJ (RBC) [Entitic mass]31.9 pg26.0-34.0 [facility] NorthMCHC Auto (RBC) [Mass/Vol]on 04-75-5948YYXG (RBC) [Mass/Vol]33.4 g/dL30.5-36.0[facility] NorthMCV Auto (RBC) [Entitic vol]on 60-82-4545HTO (RBC) [Entitic vol]95.4 fL80.0-100.0 [facility] NorthMonocytes Auto (Bld) [#/Vol]on 11-15-2023 Monocytes (Bld) [#/Vol]0.47 10*3/uL<0.87[facility] Monocytes/100 WBC Auto (Bld)on 13-23-7198Azpcmjlwy/100 WBC (Bld)8.4 %[facility] NorthNeutrophils Auto (Bld) [#/Vol]on 32-88-6381Ioaeycgwpcw (Bld) [#/Vol]2.43 10*3/uL1.45-7.50[facility] Neutrophils/100 WBC Auto (Bld)on 59-07-6023Rqezyyyxruv/100 WBC (Bld)43.7 % [facility] NorthNo Panel Informationon 56-49-0723Tihuringp GFR (CKD-EPI)114 mL/min/1.73m???>=60[facility] NorthComment on above:Estimated Glomerular Filtration Rate (eGFR) is [...] accurately reflect actual GFR.Immature Granulocyte # (Auto)<0.03 k/uL<0.10[facility] NorthNucleated RBC Auto (Bld) [#/Vol]on 31-12-9065Eytbdmdte RBC (Bld) [#/Vol]10*3/uL<0.01 [facility] NorthNucleated erythrocytes [Presence] in Blood by Automated counton 68-15-0853Rxsrgaybi RBC Auto Ql (Bld)0.0 /100{WBC}[facility] NorthPlatelet mean volume Auto (Bld) [Entitic vol]on 83-84-0816Akzdwwwi mean volume (Bld) [Entitic vol]10.5 fL9.0-12.7FSt. Mary's Medical Center, Ironton CampusPlatelets Auto (Bld) [#/Vol]on 32-84-8650Hgeflcmkt (Bld) [#/Vol]201 10*3/yS676-340LnidcbdqzSelect Medical Specialty Hospital [facility] NorthProtein [Mass/volume] in Serum or Plasmaon 46-52-4201Qpifgvo [Mass/Vol]6.9 g/dL6.3-8.0[facility] NorthRBC Auto (Bld) [#/Vol]on 29-27-2366NFV (Bld) [#/Vol]3.95 10*6/uL3.90-5.20Veterans Health Administrationerum or plasma anion gap determinationon 80-62-9896Ngmcp gap [Moles/Vol]11 mmol/L9-18FSt. Mary's Medical Center, Ironton CampusECHOon 73-96-4702HazjulbyixweqdiqEqyzdmracpvhtmgd Report: Transthoracic Echo [facility] Date of service: 11/07/2023 1:59:20 PM TACKER Ordering physician: SEDRICK RUSHING Indication: Abnormal ECG Technologist: Walt Silva [facility] Interpreting physician: Roberto Rodríguez MD PATIENT: [...] * * Final * * * CC [employer] [facility] : [id number]t [facility] Memorial HospitalCNPNon 12-19-5941GRWUKavlwawuk (CARDAV) CHIOMA ALONZO Jovana ([id number]) 2000 F Date Time Provider Department 11/05/23 [...] Fully Assessed Reason for Visit: Patient Question [1212] Cmt: PVCs and Frequent ED visits. Prescriptions [...] 12/08/2022 Encounter Status:Closed by SEDRICK RUSHING on 11/05/23[facility] HospitalChristine 70-44-7577JYBXXulkezuqq (CARDAV) CHIOMA ALONZO ([id number]) 2000 F Date Time Provider Department 10/30/23 SEDRICK RUSHING During your visit today, we recorded the following information about you: Juanis Cabello, RN 10/30/2023 11:14 AM Signed The pt is calling. Please review the my chart message from today for an EKG attachment she sent from her ED visit last night. She went to the [place] [facility]. Are you able to revue her [...] ongoing symptoms Staying hydrated Concerned Call CELL [phone] Leave Detailed messages Chichi Monroy RN 11/01/2023 [...] 12/08/2022 Encounter Status:Closed by CHICHI MONROY on 11/01/23NoUniversity Hospitals Portage Medical CenterImtiaz 35-15-3198XZVVQiewkikqu (FAINA) CHIOMA ALONZO ([id number]) 2000 F Date Time Provider Department 10/23/23 SEDRICK RUSHING During your visit today, we recorded the following information about you: Wilfredo Avila OCCA 10/23/2023 1:53 PM Signed Received form requesting cardiac evaluation for surgical clearance from [facility] General Surgery with Dr. Seema Davis. Surgery Date: 11-21-2023 Fax to [facility] Surgery: [phone] Rushing to review. CHATO Ramirez Cynthia, OCCA 12/07/2023 4:[address] Rushing filled out Cardiac Clearance Form. Faxed to [facility] Surgery at [phone]. Scanned into chart. CHATO Ramirez Allergies As [...] 12/08/2022 Encounter Status:Closed by WILFREDO AVILA on 10/23/23[facility] HospitalCNMERRYTelephone ([facility] CINDYCHIOMA Newberry Jovana ([id number]) 2000 F Date Time Provider Department 10/23/23 SEEMA DAVIS [facility] During your visit today, we recorded the following information about you: Kym Gray RN 10/23/2023 1:[address] Sedrick Rushing's office for cardiac clearance at [phone]. Abnormal heart sounds with gallbladder consult on [...] Fully Assessed Reason for Visit: Cardiac Clearance [1829] Prescriptions as of 10/23/2023 - dicyclomine (BENTYL) [...] 12/08/2022 Encounter Status:Closed by KYM GRAY on 10/23/23[facility] 05-74-0985DVRUUbqagj Visit (CARINF) CHIOMA ALONZO Jovana ([id number]) 2000 F Date Time Provider Department 10/22/23 3:00 PM SEDRICK RUSHING CARINF During your visit today, we recorded the following information about you: Pulse Blood pressure Weight Height 40/minute 102/62 52.6 kg 1.626 m Sedrick Rushing MD 10/22/2023 3:17 PM [facility] [place] Iram Pathak Department of Cardiovascular Medicine SECTION OF REGIONAL CARDIOLOGY OUTPATIENT VISIT DATE October 21, 2023 OUTPATIENT VISIT TYPE NEW CONSULTATION PRIMARY CARE PHYSICIAN: Analia Holliday [address] [place] [address] CHIEF COMPLAINT: Palpitations HISTORY OF PRESENT ILLNESS: [...] Shortness of Breath, Unknown, Vomiting CURRENT MEDICATIONS: xurfwo-ngwldshv-guoiyyi (CREON) 24,000-76,000 -120,000 unit delayed release capsule [...] on File Prior to Visit Medication Sig jeqwtx-wezsjngz-vmnwmdz (CREON) 24,000-76,000 -120,000 unit delayed release capsule [...] Sedrick Rushing MD Cardiovascular Medicine Staff [facility] [place] [address] [address] [place] [address] Azael Larson LPN 10/22/2023 3:33 PM Signed EVENT MONITOR DISPOSABLE PATCH INSTRUCTIONS Patient Name: Chioma Alonzo Clinic Number: [id number] Skin prepped and cleansed with alcohol Patch secured to prepped area Monitor Activated Serial #: [id number] Patient Instructed: Prescribed order timeframe Bathing guidelines Usage of event button and diary documentation Return of monitor at the end of prescribed order Call with problems [phone] or [phone]. [phone] (more content not included)...NormalPromedica Memorial HospitalCNOVon 10-19-2023 CNOVOffice Visit (GEMT) CINDYCHIOMA Newberyr Jovana ([id number]) 2000 F Date Time Provider Department 10/19/23 [...] Take 4 mg by mouth as needed. 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 Lives with her . [...] the date of the service which included qalt-aw-ymsd patient care, completing clinical documentation, obtaining and/or [...] within normal limits Referring Provider: SEEMA DAVIS [[id number]] Allergies As of Date: 10/19/2023 Noted Allergy Reaction METRONIDAZOLE 09/07/2020 1 - Mental Status Change 6 - Diarrhea 8 - GI Upset 4 - Hives 14 - Other: See Comments 2 - Rash 12 - Shortness of Breath 16 - Unknown 11 - Vomiting Date Reviewed: 10/19/2023 (more content not included)...NormalBarberton Citizens Hospital COMPLETEon 14-87-2313GDD COMPLETEVentricular Rate : 67 BPM Atrial Rate : 67 BPM P-R Interval : 160 ms QRS Duration : 94 ms Q-T Interval : 402 ms QTC Calculation(Bazett) : 424 ms Calculated P [place] : 76 degrees Calculated R [place] : 37 degrees Calculated T [place] : 57 degrees NORMAL SINUS RHYTHM WITH SINUS ARRHYTHMIA POSSIBLE LEFT ATRIAL ENLARGEMENT RSR' PATTERN IN V1 SUGGESTS INCOMPLETE RIGHT BUNDLE BRANCH BLOCK BORDERLINE ECG NO PREVIOUS ECGS AVAILABLE Confirmed by JENNIFER SURESH MD ([id number]) on 10/22/2023 1:00:28 PM NAME : CHIOMA ALONZO PID : [id number] : 2000 Gender : Female Race : ORD : [id number] Procedure Date : Oct 19 2023 14:37:15 Edit Date : Oct 22 2023 13:00:33 Diagnosis: NORMAL SINUS RHYTHM WITH SINUS ARRHYTHMIA POSSIBLE LEFT ATRIAL ENLARGEMENT RSR' PATTERN IN V1 SUGGESTS INCOMPLETE RIGHT BUNDLE BRANCH BLOCK BORDERLINE ECG NO PREVIOUS ECGS AVAILABLE Confirmed by JENNIFER SURESH MD ([id number]) on 10/22/2023 1:00:28 PM Test Reason : SVT Location : [facility] : [facility] Overread By : JENNIFER SURESH MD Edited By : JENNIFER SURESH MD Referred By : SEEMA DAVIS Acquired by : [id number],[facility] 10-50-3017AHFL Telephone (LENA) CHIOMA ALONZO N ([id number]) 2000 F Date Time Provider Department 09/11/23 [...] 09/11/2023 4:25 PM Signed Please refer to [facility] dated 09/11/2023. Gisela Ponce RN [...] Update [1234] Prescriptions as of 09/11/2023 - rbrpvo-pvviwhkx-yudsavq (CREON) 24,000-76,000 -120,000 unit delayed release capsule [...] 12/08/2022 Encounter Status:Closed by GISELA PONCE on 09/11/23[facility] POSTPROC EVALon 93-03-3222KLFM POSTPROC EVALHNO ID: [id number] Author: TERRY PIMENTEL MD Service: Anesthesiology Author Type: Anesthesiologist Type: Anesthesia Postprocedure Evaluation Filed: 09/06/2023 13:55 Note Text: POST ANESTHESIA EVALUATION NOTE : 2000 Procedure Summary Date: 09/06/23 Room / Location: [facility] - ENDO Anesthesia Start: 1244 Anesthesia Stop: 1327 Procedure: EGD - THERAPEUTIC, EUS, OR TUBE INTERVENTIONS Diagnosis: Chronic recurrent pancreatitis (HCC) Scheduled Providers: Isabelle Menon MD; Terry Pimentel MD; Elif Hess APRN.VULCANIZER RUBBER PLATE Responsible Provider: Terry Pimentel MD Anesthesia Type: [...] September 06, 2023 TIME: 1:55 PM CSN: [id number] HospitalANES PRE-OPon 54-82-4928RVGP PRE-OPHNO ID: [id number] Author: TERRY PIMENTEL MD Service: Anesthesiology Author Type: Anesthesiologist Type: Anesthesia Preprocedure Evaluation Filed: 09/06/2023 10:56 Note Text: ANESTHESIOLOGY DAY OF SURGERY NOTE : 2000 Procedure Information Date/Time: 09/06/23 1130 Scheduled providers: Isabelle Menon MD; Terry Pimentel MD; Elif Hess APRN.VULCANIZER RUBBER [employer]ATE Procedure: EGD - THERAPEUTIC, EUS, OR TUBE INTERVENTIONS Location: [facility] - ENDO Estimated body mass index [...] 10 mg by mouth once daily. - rhdjnd-uldnsttq-bilurto (CREON) 24,000-76,000 -120,000 unit delayed release capsule [...] September 06, 2023 TIME: 10:54 AM CSN: [id number] A. Alley Hospital 40-76-7840RETO Telephone (FVPRAD) CHIOMA ALONZO ([id number]) 2000 F Date Time Provider Department 09/06/23 [...] Fully Assessed Prescriptions as of 09/06/2023 - jdcidz-ytnkwctn-aplwvjq (CREON) 24,000-76,000 -120,000 unit delayed release capsule [...] 12/08/2022 Encounter Status:Closed by ISABELLE MENON on 09/06/23[facility] Study observation Narrativeon 39-61-4250Tekrlqhvn ClinicHISTORY PHYSICALon 34-16-2709PFHPKEQ PHYSICALHNO ID: [id number] Author: ISABELLE MENON MD Service: Gastroenterology Author [...] mouth once daily. 09/05/2023 at 1000 Yes acvqpt-vsygmszd-tntrmkv (CREON) 24,000-76,000 -120,000 unit delayed release capsule [...] Alonzo DATE: September 06, 2023 TIME: 12:20 [facility]Ohio[facility] 73-43-6804PSDSCLB PROGHNO ID: [id number] Author: RICKIE GU RN Service: Nursing Author [...] Left Endo in satisfactory condition Rickie Gu RNJewish Healthcare Center ID: [id number] Author: RICKIE GU RN Service: Nursing Author [...] REFERRAL (RECOMMENDATION): None Electronically Signed By: Rickie GuBeth Israel De[facility] EUSon 05-71-4862SotsrBaldpate Hospital Gastrointestinal Endoscopy Patient Name: Chioma Alonzo Procedure Date: 09/06/2023 12:16 PM Date of : 2000 Admit Type: Outpatient Age: 22 Room: [place] [address] Gender: Female Note Status: Finalized Attending MD: Isabelle Menon MD, [id number] Procedure: Upper EUS Indications: Abnormal abdominal/pelvic CT [...] for cholecystectomy. 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 All rights reserved. The codes documented in this report are preliminary and upon press technician review may be revised to meet current compliance requirements. Attending Participation: I personally performed the entire procedure. Scope In: 12:53:03 PM Scope Out: 1:22:36 PM MD Isabelle Cedeno MD 09/06/2023 3:29:47 PM This report has been signed electronically by Isabelle Menon MD Number of Addenda: 0 Note Initiated On: 09/06/2023 12:16 PM Estimated Blood Loss: Estimated blood loss: none.NormalChanning HomeAlanine aminotransferase [Enzymatic activity/volume] in Serum or PlasmaOrdered By: Analia Holliday on 00-31-3482EDK [Catalytic activity/Vol]10 U/L7-52[facility] NorthAlbumin [Mass/volume] in Serum or Plasma by Bromocresol green (BCG) dye binding methoOrdered By: Analia Holliday on 43-48-4097Zwdneyn BCG dye [Mass/Vol]4.6 g/dL3.5-5.7FSt. Mary's Medical Center, Ironton CampusAlkaline phosphatase [Enzymatic activity/volume] in Serum or PlasmaOrdered By: Analia Holliday on 97-79-1406BOJ [Catalytic activity/Vol]44 U/E84-509TkhfjokkaSelect Medical Specialty Hospital - Cincinnati NorthAspartate aminotransferase [Enzymatic activity/volume] in Serum or PlasmaOrdered By: Analia Holliday on 84-02-3332MSP [Catalytic activity/Vol]16 U/L 13-39[facility] NorthBasophils Auto (Bld) [#/Vol]Ordered By: Analia Holliday on 69-98-7647Dtngeesgn (Bld) [#/Vol]0.0 10*3/uL0.0-0.2FSt. Mary's Medical Center, Ironton CampusBasophils/100 WBC Auto (Bld)Ordered By: Analia Holliday on 67-46-8366Agyqxudow/100 WBC (Bld)0.8 %.[facility] Bilirubin.total [Mass/volume] in Serum or PlasmaOrdered By: Analia Holliday on 41-79-9668Xeqparnvq [Mass/Vol]0.6 mg/dL0.3-1.0[facility] Calcium [Mass/volume] in Serum or PlasmaOrdered By: Analia Holliday on 05-30-2023 Calcium [Mass/Vol]9.5 mg/dL8.6-10.3FSt. Mary's Medical Center, Ironton CampusCarbon dioxide, total [Moles/volume] in Serum or PlasmaOrdered By: Analia Holliday on 40-34-0198YR8 [Moles/Vol]27.5 mmol/L21.0-31.0[facility] Chloride [Moles/volume] in Serum or PlasmaOrdered By: Analia Holliday on 23-54-2761Amygeura [Moles/Vol]106 mmol/F97-810UqvrmixarSelect Medical Specialty Hospital - [facility] North Cholesterol [Mass/volume] in Serum or PlasmaOrdered By: Analia Holliday on 49-42-7150Tftkmjikztb [Mass/Vol]169 mg/fM271-753TrmujradjSelect Medical Specialty Hospital - Cincinnati NorthComment on above:Chol less than 200 mg/dl low riskChol 201-239 mg/dl borderline riskChol 240 mg/dl and greater high riskCholesterol in LDL Calc [Mass/Vol]Ordered By: Analia Holliday on 68-11-0818Nwgrmzmahbd in LDL [Mass/Vol] 100 mg/dL0-100[facility] Cincinnati NorthComment on above:LDL ATP III CLASSIFICATIONLDL less than 100 mg/dL OptimalLDL 100-129 mg/dL Near or above pgzlmviKPS798-956 mg/dL Borderline highLDL 160-189 mg/dL HighLDL greater than 189 mg/dL Very highCholesterol in VLDL Calc [Mass/Vol]Ordered By: Analia Holliday on 08-23-4598Vvlxcijmxez in VLDL [Mass/Vol]8 mg/dLSelect Medical Specialty Hospital - Cincinnati NorthCreatinine [Mass/volume] in Serum or PlasmaOrdered By: Analia Holliday on 39-07-5460Nhhlkrfljh [Mass/Vol]0.66 mg/dL0.60-1.20[facility] NorthEosinophils Auto (Bld) [#/Vol]Ordered By: Analia Holliday on 05-30-2023 Eosinophils (Bld) [#/Vol]0.2 10*3/uL0.0-0.45[facility] Eosinophils/100 WBC Auto (Bld)Ordered By: Analia Holliday on 05-30-2023 Eosinophils/100 WBC (Bld)3.8 %.[facility] NorthErythrocyte distribution width Auto (RBC) [Ratio]Ordered By: Analia Holliday on 05-30-2023 Erythrocyte distribution width (RBC) [Ratio]12.3 %11.9-15.3FSt. Mary's Medical Center, Ironton CampusFerritin [Mass/volume] in Serum or PlasmaOrdered By: Analia Holliday on 63-45-3334Vxnjhzqh [Mass/Vol]38.7 ng/mL11.0-306.8[facility] Cincinnati NorthFolate [Mass/volume] in Serum or PlasmaOrdered By: Analia Holliday on 64-47-6128Xhtkgl [Mass/Vol]23.0 ng/mL>5.9[facility] Comment on above:Folate reference range: >5.9 ng/mlThe WHO technical consultation on folate and vitamin y70ysxqhuevdbsk has determined that folate concentrations lessthan 4 ng/ml are considered deficient.Globulin Calc (S) [Mass/Vol]Ordered By: Analia Holliday on 81-06-1002Kkfsfdyf (S) [Mass/Vol]2.5 g/dLSelect Medical Specialty Hospital - Cincinnati NorthGlucose [Mass/volume] in Serum or Plasma Ordered By: Analia Holliday on 63-38-9853Dxtboiu [Mass/Vol]89 mg/eI22-654 [facility] NorthHematocrit Auto (Bld) [Volume fraction]Ordered By: Analia Holliday on 56-09-7577Gdeigenefa (Bld) [Volume fraction]39.8 % 34.0-46.4FSt. Mary's Medical Center, Ironton CampusHemoglobin [Mass/volume] in Blood Ordered By: Analia Holliday on 75-95-9453Iumvyamtya (Bld) [Mass/Vol]13.6 g/dL 11.8-15.4FSt. Mary's Medical Center, Ironton CampusIron [Mass/volume] in Serum or Plasma Ordered By: Analia Holliday on 46-18-8762Mlmw [Mass/Vol]116 ug/iY15-089XfjoziwxoSelect Medical Specialty Hospital - Cincinnati NorthIron binding capacity [Mass/volume] in Serum or Plasma Ordered By: Analia Holliday on 01-55-4286Rwet binding capacity [Mass/Vol]349 ug/cA875-745SenysmfphSelect Medical Specialty Hospital - Cincinnati NorthIron saturation [Mass Fraction] in Serum or PlasmaOrdered By: Analia Holliday on 81-99-7065Ljew saturation [Mass fraction]33.2 %20-50[facility] NorthLeukocytes [#/volume] corrected for nucleated erythrocytes in Blood by Automated counOrdered By: Analia Holliday on 66-88-1092FZT corrected for nucl RBC Auto (Bld) [#/Vol]5.0 10*3/uL3.8-11.6FSt. Mary's Medical Center, Ironton CampusLymphocytes Auto (Bld) [#/Vol] Ordered By: Analia Holliday on 95-76-9734Ifrnradodrj (Bld) [#/Vol]2.0 10*3/uL 1.00-4.8Fire[facility] Medical CenterLymphocytes/100 WBC Auto (Bld)Ordered By: Analia Holliday on 95-60-9866Xxzgbwglbvo/100 WBC (Bld)39.3 %.[facility], IncH Auto (RBC) [Entitic mass]Ordered By: Analia Holliday on 80-62-5187BWG (RBC) [Entitic mass]31.6 pg24.7-34.3FSt. Mary's Medical Center, Ironton CampusMCHC Auto (RBC) [Mass/Vol]Ordered By: Analia Holliday on 80-16-5212HUPI (RBC) [Mass/Vol]34.1 g/dL32.0-35.0[facility] NorthMCV Auto (RBC) [Entitic vol]Ordered By: Analia Holliday on 60-74-2192PAW (RBC) [Entitic vol]92.6 hN28-036DzvkmrkjjSelect Medical Specialty Hospital - Cincinnati NorthMonocytes Auto (Bld) [#/Vol] Ordered By: Analia Holliday on 71-73-9571Fiogoitsq (Bld) [#/Vol]0.5 10*3/uL 0.0-0.8[facility] NorthMonocytes/100 WBC Auto (Bld)Ordered By: Analia Holliday on 42-74-4678Thmqhiazu/100 WBC (Bld)9.5 %.[facility] NorthNeutrophils Auto (Bld) [#/Vol]Ordered By: Analia Holliday on 98-85-9415Fulictmfwwu (Bld) [#/Vol]2.3 10*3/uL1.8-7.7FSt. Mary's Medical Center, Ironton CampusNeutrophils/100 WBC Auto (Bld)Ordered By: Analia Holliday on 05-30-2023 Neutrophils/100 WBC (Bld)46.6 %.[facility] NorthNo Panel InformationOrdered By: Analia Holliday on 77-32-5637Zckzslbte GFR (CKD-EPI)> 60.0 mL/MinSelect Medical Specialty Hospital - Cincinnati NorthPharmacy Creatinine Clearance (ChemN/A [facility] NorthNucleated erythrocytes [Presence] in Blood by Automated countOrdered By: Analia Holliday on 96-11-8502Vxopxnmmq RBC Auto Ql (Bld)0.1 /100{WBC}0-0.5FSt. Mary's Medical Center, Ironton CampusPlatelet mean volume Auto (Bld) [Entitic vol]Ordered By: Analia Holliday on 62-48-2888Gepadsgy mean volume (Bld) [Entitic vol]9.7 fL6.3-10.7FSt. Mary's Medical Center, [facility] Campus Platelets Auto (Bld) [#/Vol]Ordered By: Analia Holliday on 28-17-3145Jckypbzil (Bld) [#/Vol]198 10*3/nZ617-155IlpzxyhxpSelect Medical Specialty Hospital - [place] NorthPotassium [Moles/volume] in Serum or PlasmaOrdered By: Analia Holliday on 05-30-2023 Potassium [Moles/Vol]4.2 mmol/L3.5-5.1FSt. Mary's Medical Center, Iront[place] CampusProtein [Mass/volume] in Serum or PlasmaOrdered By: Analia Holliday on 46-63-4195Cwtqfwz [Mass/Vol]7.1 g/dL6.4-8.9[facility] NorthRBC Auto (Bld) [#/Vol] Ordered By: Analia Holliday on 55-41-6917PHH (Bld) [#/Vol]4.30 10*6/uL3.60-5.00 [facility] Administrationerum or plasma albumin/globulin mass ratio Ordered By: Analia Holliday on 34-86-6163Ycxvubl/Globulin [Mass ratio]1.8 {ratio} [facility] Health Administrationerum or plasma anion gap determinationOrdered By: Analia Holliday on 43-98-2603Scuhp gap [Moles/Vol]8.7 mmol/L6.0-15.0[facility] Administrationerum or plasma high density lipoprotein (HDL) cholesterol measurementOrdered By: Analia Holliday on 66-29-6218Idzscjsigzy in HDL [Mass/Vol]61 mg/oW92-75OyxppncktSelect Medical Specialty Hospital - Cincinnati NorthComment on above:HDL CHOL ATP-III CLASSIFICATION Cardiovascular RiskHDL > or equal to 60 mg/dL LOWHDL < 40 mg/dL HIGHSerum or plasma total cholesterol/high density lipoprotein (HDL) cholesterol mass ratOrdered By: Analia Holliday on 05-30-2023 Cholesterol.total/Cholesterol in HDL [Mass ratio]2.8 {ratio}<5.0[facility] Health Administrationodium [Moles/volume] in Serum or PlasmaOrdered By: Analia Holliday on 90-31-2564Mclwat [Moles/Vol]138 mmol/S027-092LwnutxabuSelect Medical Specialty Hospital - Cincinnati NorthThyrotropin [Units/volume] in Serum or PlasmaOrdered By: Analia Holliday on 68-81-2633FYV Qn0.95 m[IU]/L0.45-5.33[facility] NorthTransferrin [Mass/volume] in Serum or PlasmaOrdered By: Analia Holliday on 58-64-0015Ieniddanyee [Mass/Vol]249 mg/vI630-153CwdkotbnwSelect Medical Specialty Hospital - Cincinnati NorthTriglyceride [Mass/volume] in Serum or PlasmaOrdered By: Analia Holliday on 76-17-5645Zemtjhetjsuz [Mass/Vol]42 mg/dL0-149Select [facility] - [facility] NorthComment on above:TRIG ATP III CLASSIFICATIONTRIG less than 150 mg/dL NormalTRIG 150-199 mg/dL Borderline highTRIG 200-500 mg/dL High TRIG greater than 500 mg/dL Very highStandard traceable to the Center for Disease Co nrtrol and Prevention (CDC) test method.Urea nitrogen [Mass/volume] in Serum or PlasmaOrdered By: Analia Holliday on 95-34-5383Dgyf nitrogen [Mass/Vol]12 mg/dL 7-25Select [facility] NorthVitamin B12 ser/plasOrdered By: Analia Holliday on 98-08-7484Wpxyfuuib (Vitamin B12) [Mass/Vol]630 pg/rR182-376LvljgrdlvSelect Medical Specialty Hospital - Cincinnati NorthVitamin D+Metabolites [Mass/volume] in Serum or Plasma Ordered By: Analia Holliday on 03-91-6428Vrsuamb D+Metabolites [Mass/Vol]27.7 ng/qS98-463QpzblwdfqSelect Medical Specialty Hospital - Cincinnati NorthComment on above:VITAMIN D STATUS 25(OH)VITAMIN D RANGE (ng/mL) Deficient <20 Insufficient 20 to <78Jlywgnyiyq39 to 100Reference: Chichi MF,Manpreet NC, Doe MIKE, et al. Evaluation,treatment, and prevention of vitamin D deficiency; an Endocrine Society clinical practice guideline. JCEM. 2010; 96(7):1911-30.WBC Auto (Bld) [#/Vol]Ordered By: Analia Holliday on 36-30-9302NZP (Bld) [#/Vol]5.0 10*3/uL3.8-11.6FElyria Memorial Hospital HEALTHon 48-36-1583JCIQGE HEALTHHNO ID: [id number] Author: Yessi Adkins MRI Tech Service: Radiology Author Type: Molding Plasterer Type: Allied Health Filed: 04/13/2023 3:14 PM [...] Alonzo DATE: April 13, 2023 TIME: 3:13 PMNBoston Hospital for WomenMR Abdomen WO and W contrast Eddie 04-13-2023 IMPRESSION: No MR findings of acute or chronic pancreatitis. No pancreatic divisum. Meat Loiner: PSCB Transcribe Date/Time: Apr 13 2023 3:30P Dictated by : ERIC VILLAR MD This examination was interpreted and the report reviewed and electronically signed by: ERIC VILLAR MD on Apr 13 2023 3:50PM [facility] RAD[facility]OLOG[facility]* * *Final Report* * * DATE OF EXAM: Apr 13 2023 3:23PM [facility] 0689 - MRI ABDOMEN WO/W [...] ascites. Osseous structures: No aggressive osseous lesions. MAN[facility] RADIOLOGYProvider, [facility] [place] - 04/13/2023 * * *Final Report* * * DATE OF EXAM: Apr 13 2023 3:23PM [facility] 0689 - MRI ABDOMEN WO/W [...] acute or chronic pancreatitis. No pancreatic divisum. Meat Loiner: PSCB Transcribe Date/Time: Apr 13 2023 3:30P Dictated by : ERIC VILLAR MD This examination was interpreted and the report reviewed and electronically signed by: ERIC VILLAR MD on Apr 13 2023 3:50PM EST [facility] HospitalRad[facility] Study observation (narrative)[facility] Abdomen WO and W contrast IVOrdered By: Ccf Provider on 89-26-9799Btxxnzhqv ClinicMRI ABDOMEN WO/W IVCONon 97-76-3942CXS ABDOMEN WO/W IVCON* * *Final Report* * * DATE OF EXAM: Apr 13 2023 3:23PM [facility] 0689 - MRI ABDOMEN WO/W [...] acute or chronic pancreatitis. No pancreatic divisum. Meat Loiner: PSCB Transcribe Date/Time: Apr 13 2023 3:30P Dictated by : ERIC VILLAR MD This examination was interpreted and the report reviewed and electronically signed by: ERIC VILLAR MD on Apr 13 2023 3:50PM EST [id number] Memorial Hospital [id number] (RGFV) CHIOMA ALONZO ([id number]) 2000 F Date Time Provider Department 04/12/23 [...] mouth three times daily with meals. - qgcamp-bkddjuii-togojhn (ZENPEP) 40,000-126,000- 168,000 unit delayed release capsule [...] 12/08/2022 Encounter Status:Closed by MARIE SIMPSON on 04/12/23[facility] HEPATOBILIARY SCAN W EFon 71-81-9427CZ HEPATOBILIARY SCAN W EF HEPATOBILIARY SCAN WITH [...] authenticated by: DARA CEDILLO Date: 2022-12-01 13:53Normal [facility] AND PARASITE EXAMINATIONon 07-24-9258Iig + Parasite ExamFinal reportNoCincinnati Shriners HospitalComment on above:Result Comment: These results were obtained using wet preparation(s) and trichrome stained smear. This test does not include testing for Cryptosporidium parvum, Cyclospora, or Microsporidia.Performed By: #### OVAPE #### [facility] [address] [place] [address] Dr. Timi Velasquez 1CommentNoCincinnati Shriners HospitalComment on above:Result Comment: No ova, cysts, or parasites seen. . One negative specimen does not rule out the possibility of a parasitic infection.Performed By: #### OVAPE #### [facility] [address] [place] [address] Dr. Timi PraterAMYLASEon 99-14-8234Aftphgv [Catalytic activity/Vol]39 U/LNormal 25-115[facility] HospitalComment on above:Performed By: #### OVAPE #### [facility] [address] [place] [address] Dr. Timi Willett AUTO DIFFon 38-56-8384HUWV #0.1 103/ulNormal0.0-0.1[facility] HospitalComment on above:Performed By: #### CALPOO #### [facility] [address] [place] [address] Dr. Timi PraterBasophils/100 WBC (Bld)1.1 %Normal0.2-2.0[facility] Comment on above:Performed By: #### CALPOO #### [facility] [address] [place] [address] Dr. Timi Mejia #0.2 103/ulNormal0.0-0.7The [facility] Medical CenterComment on above: Performed By: #### CALPOO #### [facility] [address] [place] [address] Dr. Timi Romeroosinophils/100 WBC (Bld)3.5 %Normal0.9-7.0[facility] Comment on above:Performed By: #### CALPOO #### [facility] [address] [place], [place] [id number] Dr. Timi Romerorythrocyte distribution width (RBC) [Ratio]11.5 %Pqlmah23.0-15.[address] [facility] Medical CenterComment on above:Performed By: #### CALPOO #### [facility] [address] [place] [address] Dr. Timi PraterHematocrit (Bld) [Volume fraction]39.8 %Nwkkoy24.0-48.0The [facility] Medical CenterComment on above:Performed By: #### CALPOO #### [facility] [address] [place] [address] Dr. Timi PraterHemoglobin (Bld) [Mass/Vol]13.7 g/fHDuyatu84.0-16.0The [facility] CenterComment on above:Performed By: #### CALPOO #### [facility] [address] [place] [address] Dr. Timi Delong #0.01 10e3/ulNormal0.00-0.03The [facility] Medical CenterComment on above:Performed By: #### CALPOO #### [facility] [address] [place] [address] Dr. Timi Delong %0.2 %Normal0.0-0.5The [facility] CenterComment on above: Performed By: #### CALPOO #### [facility] [address] [place] [address] Dr. Timi MalcolmH #2.4 103/ulNormal1.2-3.8The [facility] Medical CenterComment on above:Performed By: #### CALPOO #### [facility] [address] [place] [address] Dr. Timi bOrienmphocytes/100 WBC (Bld)53.1 %Vxjqex57.5-60.0The [facility] CenterComment on above:Performed By: #### CALPOO #### [facility] [address] [place] [address] Dr. Timi PraterMANUAL DIFF REQNONormalThe [facility] CenterComment on above: Performed By: #### CALPOO #### [facility] [address] [address] [address] Timi Escamilla (RBC) [Entitic mass]31.6 opKqejhx31.7-34.0The [facility] CenterComment on above:Performed By: #### CALPOO #### [facility] [address] [place] [address] Dr. Timi Escamilla (RBC) [Mass/Vol]34.4 g/lAKtlmjg15.9-35.2The [facility]land HospitalComment on above:Performed By: #### CALPOO #### [facility] [address] [place] [address] Dr. Timi Escamilla (RBC) [Entitic vol]91.7 sGEofkxw80.0-99.0The [facility] CenterComment on above:Performed By: #### CALPOO #### [facility] [address] [place] [address] Dr. Timi Ortiz #0.4 103/ulNormal0.3-0.8The [facility] CenterComment on above:Performed By: #### CALPOO #### [facility] [address] [place] [address] Dr. Timi Turciosocytes/100 WBC (Bld)8.1 %Normal1.7-12.0The [facility] Comment on above:Performed By: #### CALPOO #### [facility] [address] [place] [address] Dr. Timi Mott #1.6 103/ulNormal1.4-6.5The [facility] CenterComment on above:Performed By: #### CALPOO #### [facility] [address] [place] [address] Dr. Timi Guzmanutrophils/100 WBC (Bld)34.0 %Critically low43.0-75.0The [facility] CenterComment on above:Performed By: #### CALPOO #### [facility] [address] [place] [address] Dr. Timi Zamanlet mean volume (Bld) [Entitic vol]10.7 fLNormal9.5-13.5The [facility] CenterComment on above:Performed By: #### CALPOO #### [facility] [address] [place] [address] Dr. Timi PraterPLT192 103/wfNlefty037-938Sjn [facility] CenterComment on above: Performed By: #### CALPOO #### [facility] [address] [place] [address] Dr. Timi PraterRBC4.34 106/ulNormal4.20-5.40The [facility] CenterComment on above:Performed By: #### CALPOO #### [facility] [address] [place] [address] Dr. Timi PraterWBC4.6 103/ulNormal4.0-11.0The [facility] CenterComment on above: Performed By: #### CALPOO #### [facility] [address] [place] [address] Dr. Timi Blanchard PANEL (PCR)on 22-40-2723Bidzcwpziq F 40/41Not detectedNormal NOT DETECTEDThe [facility] CenterComment on above:Performed By: #### CDIFPOC #### [facility] [address] [place] [address] Dr. Timi PraterAstrovirusNot detectedNormalNOT DETECTEDThe [facility] Comment on above:Performed By: #### CDIFPOC #### [facility] [address] [place] [address] Dr. Timi Gupta. Diff toxin A/BNot detectedNormalNOT DETECTEDThe [facility] CenterComment on above:Performed By: #### CDIFPOC #### [facility] [address] [place] [address] Dr. Timi ChupylobacterNot detectedNormalNOT DETECTEDThe [facility] Comment on above:Performed By: #### CDIFPOC #### [facility] [address] [place] [address] Dr. Timi PraterCryptosporidiumNot detectedNormalNOT DETECTEDThe [facility] CenterComment on above:Performed By: #### CDIFPOC #### [facility] [address] [address] [address] Timi Christensen. CayetanensisNot detectedNormalNOT DETECTEDThe [facility] CenterComment on above:Performed By: #### CDIFPOC #### [facility] [address] [address] [address] Timi Romero. Coli T059Nyd ApplicableNormalNot ApplicableThe [facility] Medical CenterComment on above:Performed By: #### CDIFPOC #### [facility] [address] [address] [address] Timi Romero. histolyticaNot detectedNormalNOT DETECTEDThe [facility] Comment on above:Performed By: #### CDIFPOC #### [facility] [address] [address] [address] Timi RomeroAECNot detectedNormalNOT DETECTEDThe [facility] CenterComment on above:Performed By: #### CDIFPOC #### [facility] [address] [address] [address] Timi RomeroIECNot detectedNormalNOT DETECTEDThe [facility] Medical CenterCommclaren lapeer region on above:Performed By: #### CDIFPOC #### [facility] [address] [address] [address] Timi RomeroPECNot detectedNormalNOT DETECTEDThe [facility] CenterComment on above:Performed By: #### CDIFPOC #### [facility] [address] [address] [address] Timi RomeroTECNot detectedNormalNOT DETECTEDThe [facility] CenterComment on above:Performed By: #### CDIFPOC #### [facility] [address] [address] [address] Timi Perez. LambliaNot detectedNormalNOT DETECTEDThe [facility] Comment on above:Performed By: #### CDIFPOC #### [facility] [address] [address] [address] Timi Burroughs CONTROLSPASSEDNormalThe [facility] CenterComment on above:Performed By: #### CDIFPOC #### [facility] [address] [address] [address] Timi Jay ANITA HEADERGI [facility] Comment on above:Performed By: #### CDIFPOC #### [facility] [address] [address] [address] Timi Moon ECOLIGI PANEL DIARRHEAGENIC E.COLI / SHIGELLAGreen Cross HospitalComment on above:Performed By: #### CDIFPOC #### [facility] [address] [place] [address] Dr. Timi Moon INFOSEE [facility] Health – The Jewish HospitalComment on above: Result Comment: EAEC- Enteroaggregative E. Coli EPEC- Enteropathogenic E. Coli ETEC- Enterotoxigenic E. Coli lt/st STEC- Shigella-like toxin-producing E. Coli stx1/stx2 EIEC- Shigella/Enteroinvasive E. ColiPerformed By: #### CDIFPOC #### [facility] [address] [place] [address] Dr. Timi Moon PARASITESGI PANEL PARASITESGreen Cross Hospital Comment on above:Performed By: #### CDIFPOC #### [facility] [address] [place] [address] Dr. Timi Moon VIRUSGI PANEL VIRUSESGreen Cross HospitalComment on above:Performed By: #### CDIFPOC #### [facility] [address] [place] [address] Dr. Timi Heartrovirus GI/GIINot detectedNormalNOT DETECTEDThe [facility] CenterComment on above:Performed By: #### CDIFPOC #### [facility] [address] [address] [address] Timi Dorsey. ShigelloidesNot detectedNormalNOT DETECTEDThe [facility] CenterComment on above:Performed By: #### CDIFPOC #### [facility] [address] [address] [address] Timi PraterRotavirus ANot detectedNormalNOT DETECTEDHarrison Community Hospital Comment on above:Performed By: #### CDIFPOC #### [facility] [address] [place] [address] Dr. Timi PraterSalmonellaNot detectedNormalNOT DETECTEDHarrison Community Hospital Comment on above:Performed By: #### CDIFPOC #### [facility] [address] [place] [address] Dr. Timi PraterSapovirusNot detectedNormalNOT DETECTEDThe [facility] Comment on above:Performed By: #### CDIFPOC #### [facility] [address] [place] [address] Dr. Timi PraterSTECNot detectedNormalNOT DETECTEDThe [facility] CenterComment on above:Performed By: #### CDIFPOC #### [facility] [address] [place] [address] Dr. Timi PraterVibrioNot detectedNormalNOT DETECTEDThe [facility] CenterComment on above:Performed By: #### CDIFPOC #### [facility] [address] [place] [address] Dr. Timi Lopezio CholeraNot detectedNormalNOT DETECTEDHarrison Community Hospital Comment on above:Performed By: #### CDIFPOC #### [facility] [address] [place] [address] Dr. Timi Wallis. EnterocoliticaNot detectedNormalNOT DETECTEDThe [facility] CenterComment on above:Performed By: #### CDIFPOC #### [facility] [address] [place] [address] Dr. Timi PraterLIPASEon 09-48-0871Pewuqe [Catalytic activity/Vol]88.0 U/LNormal 73.0-393.0The [facility] CenterComment on above:Performed By: #### OVAPE #### [facility] [address] [place] [address] Dr. Timi PraterOCC BLD IMMUNO SCREENon 29-34-3768FHTGMU BLOODNegativeNormal NEGATIVEThe [facility] CenterComment on above:Performed By: #### CALPOO #### [facility] [address] [place] [address] Dr. Timi TrujilloF 14(COMP METB)on 66-54-8375Surwzsm [Mass/Vol]4.2 g/dLNormal 3.4-5.0The [facility] CenterComment on above:Performed By: #### CALPOO #### [facility] [address] [address] [address] Timi PraterAlbumin/Globulin [Mass ratio]1.2 {ratio}NormalThe [facility] Medical CenterComment on above:Performed By: #### CALPOO #### [facility] [address] [address] [address] Timi GreenbergP [Catalytic activity/Vol]55 U/ZWrmier99-801Qoc [facility] CenterComment on above:Performed By: #### CALPOO #### [facility] [address] [place] [address] Dr. Timi GreenbergT [Catalytic activity/Vol]14 U/QAkqwsx87-82Oce [facility] CenterComment on above:Performed By: #### CALPOO #### [facility] [address] [place] [address] Dr. Timi Salmon gap [Moles/Vol]11.9 mmol/LNormalThe [facility] Comment on above:Performed By: #### CALPOO #### [facility] [address] [place] [address] Dr. Timi PraterAST [Catalytic activity/Vol]13 U/LCritically cpz36-05Wqp [facility] CenterComment on above:Performed By: #### CALPOO #### [facility] [address] [place] [address] Dr. Timi PraterBilirubin [Mass/Vol]0.6 mg/dLNormal0.2-1.0The [facility] Comment on above:Performed By: #### CALPOO #### [facility] [address] [place] [address] Dr. Timi PraterCalcium [Mass/Vol]9.4 mg/dLNormal8.5-10.1The [facility] Comment on above:Performed By: #### CALPOO #### [facility] [address] [address] [address] Timi PraterChloride [Moles/Vol]104 mmol/BJnmhqo95-629Ceg [facility] Comment on above:Performed By: #### CALPOO #### [facility] [address] [address] [address] Timi PraterCO2 [Moles/Vol]26.6 mmol/MGqozvf79.0-32.0The [facility] Comment on above:Performed By: #### CALPOO #### [facility] [address] [address] [address] Timi PraterCreatinine [Mass/Vol]0.85 mg/dLNormal0.55-1.02The [facility] CenterComment on above:Performed By: #### CALPOO #### [facility] [address] [address] [address] Capellan ChangEGFR-AF UZBEK>60Normal>=60The [facility] CenterComment on above:Performed By: #### CALPOO #### [facility] [address] [address] [address] Timi RomeroGFR-NON AF UZBEK>60Normal>=60The [facility] CenterComment on above:Performed By: #### CALPOO #### [facility] [address] [address] [address] Timi PraterGlobulin (S) [Mass/Vol]3.6 g/dLNormalThe [facility] CenterComment on above:Performed By: #### CALPOO #### [facility] [address] [address] [address] Timi PraterGlucose [Mass/Vol]100 mg/lZNxoipl81-261Pds [facility] Comment on above:Performed By: #### CALPOO #### [facility] [address] [address] [address] Timi PraterPotassium [Moles/Vol]3.5 mmol/LNormal3.5-5.1The [facility] Comment on above:Performed By: #### CALPOO #### [facility] [address] [address] [address] Timi PraterProtein [Mass/Vol]7.8 g/dLNormal6.4-8.2The [facility] Comment on above:Performed By: #### CALPOO #### [facility] [address] [place] [address] Dr. Timi PraterSodium [Moles/Vol]139 mmol/ZTajltg458-184Hzd [facility] Comment on above:Performed By: #### CALPOO #### [facility] [address] [place] [address] Dr. Timi PraterUrea nitrogen [Mass/Vol]13.0 mg/dLNormal7.0-18.0The [facility] CenterComment on above:Performed By: #### CALPOO #### [facility] [address] [place] [address] Dr. Timi PraterUrea nitrogen/Creatinine [Mass ratio]15.3 mg/mgNormalThe [facility] CenterComment on above:Performed By: #### CALPOO #### [facility] [address] [place] [address] Dr. Timi Gupta. DIFF PCRon 3C. DIFFICILE PCRNegativeNormalNEGATIVEThe [facility] CenterComment on above:Performed By: #### THYRABS #### [facility] [address] [place] [address] Dr. Timi PraterPANCREATIC ELASTASE FECALon 98-38-4421Atnimvsxfp Elastase, Fecal 253 ug Elast./gNormal>200The [facility] CenterComment on above:Result Comment: Severe Pancreatic Insufficiency: <100 Moderate Pancreatic Insufficiency: 100 - 200 Normal: >200Performed By: #### CALPOO #### [facility] [address] [place] [address] Dr. Timi Chino SINGLE QUAD RT UPPERon [id number] SINGLE QUAD RT UPPEREXAM: US SINGLE QUAD [...] Electronically authenticated by: DARA SAVAGE Date: 2022-10-31 08:39No[facility] AUTO DIFFon [id number] #0.1 103/ulNormal0.0-0.1The [facility] CenterComment on above:Performed By: #### CBC #### [facility] [address] [address] [address] Timi PraterBasophils/100 WBC (Bld)0.9 %Normal0.2-2.0[facility] Comment on above:Performed By: #### CBC #### [facility] [address] [address] [address] Timi Mejia #0.1 103/ulNormal0.0-0.7The [facility] CenterComment on above: Performed By: #### CBC #### [facility] [address] [address] [address] Timi Romeroosinophils/100 WBC (Bld)2.6 %Normal0.9-7.0[facility] Comment on above:Performed By: #### CBC #### [facility] [address] [address] [address] Timi Romerorythrocyte distribution width (RBC) [Ratio]11.9 %Csukgu69.0-15.[address] [facility] CenterComment on above:Performed By: #### CBC #### [facility] [address] [address] [address] Timi PraterHematocrit (Bld) [Volume fraction]41.0 %Zcqtfu74.0-48.0The [facility] CenterComment on above:Performed By: #### CBC #### [facility] [address] [place] [address] Dr. Timi PraterHemoglobin (Bld) [Mass/Vol]14.2 g/pBTvgjhq66.0-16.0The [facility] CenterComment on above:Performed By: #### CBC #### [facility] [address] [place] [address] Dr. Timi Delong #0.02 10e3/ulNormal0.00-0.03The [facility] CenterComment on above:Performed By: #### CBC #### [facility] [address] [place] [address] Dr. Timi Delong %0.4 %Normal0.0-0.5The [facility] CenterComment on above: Performed By: #### CBC #### [facility] [address] [place] [address] Dr. Timi Webster #1.7 103/ulNormal1.2-3.8The [facility] CenterComment on above:Performed By: #### CBC #### [facility] [address] [place] [address] Dr. Timi Malcolmhocytes/100 WBC (Bld)31.2 %Zvowjf33.5-60.0The [facility] CenterCommclaren lapeer region on above:Performed By: #### CBC #### [facility] [address] [place] [address] Dr. Timi SandersUAL DIFF REQNONormalThe [facility] CenterComment on above: Performed By: #### CBC #### [facility] [address] [place] [address] Dr. Timi Escamilla (RBC) [Entitic mass]31.7 peInrieb53.7-34.0The [facility] CenterComment on above:Performed By: #### CBC #### [facility] [address] [place] [address] Dr. Timi Escamilla (RBC) [Mass/Vol]34.6 g/gZBnhkdd16.9-35.2The [facility] CenterComment on above:Performed By: #### CBC #### [facility] [address] [address] [address] Timi EscamillaV (RBC) [Entitic vol]91.5 vAYjglqj51.0-99.0The [facility] CenterComment on above:Performed By: #### CBC #### [facility] [address] [address] [address] Timi Ortiz #0.5 103/ulNormal0.3-0.8The [facility] HospitalComment on above:Performed By: #### CBC #### [facility] [address] [address] [address] Timi Turciosocytes/100 WBC (Bld)8.7 %Normal1.7-12.0The [facility] on above:Performed By: #### CBC #### [facility] [address] [place] [address] Dr. Timi Mott #3.1 103/ulNormal1.4-6.5The [facility] CenterComment on above:Performed By: #### CBC #### [facility] [address] [place] [address] Dr. Timi Guzmanutrophils/100 WBC (Bld)56.2 %Pydadw58.0-75.0The [facility] CenterComment on above:Performed By: #### CBC #### [facility] [address] [place] [address] Dr. Timi Zamanlet mean volume (Bld) [Entitic vol]10.8 fLNormal9.5-13.5The [facility] CenterComment on above:Performed By: #### CBC #### [facility] [address] [place] [address] Dr. Timi PraterPLT219 103/lmQnviuw277-307Zgr [facility] CenterComment on above: Performed By: #### CBC #### [facility] [address] [place] [address] Dr. Timi PraterRBC4.48 106/ulNormal4.20-5.40The [facility] CenterComment on above:Performed By: #### CBC #### [facility] [address] [place] [address] Dr. Timi PraterWBC5.4 103/ulNormal4.0-11.0The [facility] CenterComment on above: Performed By: #### CBC #### [facility] [address] [place] [address] Dr. Timi PraterPROF 14(COMP METB)on 64-22-8749Dkmqdcw [Mass/Vol]4.5 g/dLNormal 3.4-5.0The [facility] CenterComment on above:Performed By: #### CDIFPOC #### [facility] [address] [place] [address] Dr. Timi PraterAlbumin/Globulin [Mass ratio]1.5 {ratio}NormalThe [facility] CenterComment on above:Performed By: #### CDIFPOC #### [facility] [address] [place] [address] Dr. Timi Oconnor [Catalytic activity/Vol]56 U/ZRqdmuc86-770Cdg [facility] CenterComment on above:Performed By: #### CDIFPOC #### [facility] [address] [place] [address] Dr. Timi Pizarro [Catalytic activity/Vol]16 U/AIklojc61-08Wlw [facility] CenterComment on above:Performed By: #### CDIFPOC #### [facility] [address] [place] [address] Dr. Timi Salmon gap [Moles/Vol]15.5 mmol/LNormalThe [facility] on above:Performed By: #### CDIFPOC #### [facility] [address] [place] [address] Dr. Timi Vizcaino [Catalytic activity/Vol]13 U/LCritically guo86-51Yro [facility] CenterComment on above:Performed By: #### CDIFPOC #### [facility] [address] [place] [address] Dr. Timi PraterBilirubin [Mass/Vol]0.6 mg/dLNormal0.2-1.0The [facility] Comment on above:Performed By: #### CDIFPOC #### [facility] [address] [place] [address] Dr. Timi PraterCalcium [Mass/Vol]9.3 mg/dLNormal8.5-10.1[facility] Comment on above:Performed By: #### CDIFPOC #### [facility] [address] [place] [address] Dr. Timi PraterChloride [Moles/Vol]104 mmol/BKfmpvb99-237Urj [facility] Comment on above:Performed By: #### CDIFPOC #### [facility] [address] [place] [address] Dr. Timi PraterCO2 [Moles/Vol]25.7 mmol/SKpcilx53.0-32.0[facility] Comment on above:Performed By: #### CDIFPOC #### [facility] [address] [place] [address] Dr. Timi PraterCreatinine [Mass/Vol]0.71 mg/dLNormal0.55-1.02The [facility] CenterComment on above:Performed By: #### CDIFPOC #### [facility] [address] [place] [address] Dr. Timi RomeroGFR-AF UZBEK>60Normal>=60The [facility] CenterComment on above:Performed By: #### CDIFPOC #### [facility] [address] [place] [address] Dr. Timi RomeroGFR-NON AF UZBEK>60Normal>=60The [facility] CenterComment on above:Performed By: #### CDIFPOC #### [facility] [address] [place] [address] Dr. Timi PraterGlobulin (S) [Mass/Vol]3.1 g/dLNormalThe [facility] CenterComment on above:Performed By: #### CDIFPOC #### [facility] [address] [place] [address] Dr. Timi PraterGlucose [Mass/Vol]77 mg/hOMuonge27-760CrwH[facility] Hospital Comment on above:Performed By: #### CDIFPOC #### [facility] [address] [place] [address] Dr. Timi PraterPotassium [Moles/Vol]4.2 mmol/LNormal3.5-5.1The [facility] Comment on above:Performed By: #### CDIFPOC #### [facility] [address] [place] [address] Dr. Timi PraterProtein [Mass/Vol]7.6 g/dLNormal6.4-8.2The [facility] Comment on above:Performed By: #### CDIFPOC #### [facility] [address] [place] [address] Dr. Timi PraterSodium [Moles/Vol]141 mmol/LMasbdc600-274IncHarrison Community Hospital Comment on above:Performed By: #### CDIFPOC #### [facility] [address] [place] [address] Dr. Timi PraterUrea nitrogen [Mass/Vol]15.0 mg/dLNormal7.0-18.0The [facility] CenterComment on above:Performed By: #### CDIFPOC #### [facility] [address] [place] [address] Dr. Timi Villa nitrogen/Creatinine [Mass ratio]21.1 mg/mgNormalThe [facility] CenterComment on above:Performed By: #### CDIFPOC #### [facility] [address] [place] [address] Dr. Timi PraterLIPASEon 13-48-1949Rgrjub [Catalytic activity/Vol]117.0 U/LNormal 73.0-393.0[facility] HospitalComment on above:Performed By: #### CDIFPOC #### [facility] [address] [place] [address] Dr. Timi PraterCT ABD/PELV W CONon [id number] ABD/PELV W CONEXAMINATION: CT ABD/PELV W CON [...] Electronically authenticated by: AZAEL GRIFFIN Date: 2022-10-18 11:02[facility] HospitalCORTISOL 24HR URINEon 97-30-7980Ukfelmgb,F,ug/24hr,U19 ug/24 hr Normal6-42The [facility] CenterComment on above:Performed By: #### CORT24 #### [facility] [address] [place] [address] Dr. Timi PraterCortisol,F,ug/L,U18 ug/LNormalUndefinedHarrison Community Hospital Comment on above:Performed By: #### RPSO35 #### [facility] [address] [place] [address] Dr. Timi PraterCLOSTRIDIUM DIFFICILE PCRon 10-06-2022 difficile Toxin Gene RUCHI NegativeNormalNegativeHarrison Community HospitalCommclaren lapeer region on above:Performed By: #### CALPOO #### [facility] [address] [place] [address] Dr. Timi PraterREVERSE T3on 27-21-9469Hrjidzm T3, Serum19.3 ng/dLNormal9.2-24.[address] [facility] CenterCommclaren lapeer region on above:Result Comment: This test was developed and its performance characteristics determined by [employer]. It has not been cleared or approved by the Food and Drug Administration.Performed By: #### OVAPE #### [facility] [address] [place] [address] Dr. Timi PraterC. DIFF PCRon 09-28-2022. DIFFICILE PCRNegativeNormalNEGATIVEThe [facility] CenterComment on above:Performed By: #### CDIFPOC #### [facility] [address] [place] [address] Dr. Timi PraterFREE T4on 79-02-6339Hfic T4 [Mass/Vol]0.89 ng/dLNormal0.76-1.46 [facility] HospitalCommclaren lapeer region on above:Performed By: #### THYRABS #### [facility] [address] [place] [address] Dr. Timi PraterCORTISOL Mely 70-79-7060Gfdyilfv AM23.5 ug/dLCritically high 6.2-19.4The [facility] CenterComment on above:Performed By: #### CDIFPOC #### [facility] [address] [place] [address] Dr. Timi PraterTHYROID ANTIBODIESon 68-79-0133Ihntqysfgfupr Antibody<1.0Normal 0.0-0.9[facility] on above:Result Comment: Thyroglobulin Antibody measured by [employer] MethodologyPerformed By: #### THYRABS #### [facility] [address] [place] [address] Dr. Timi PraterThyroid Peroxidase (TPO) Ab10 IU/mLNormal0-34The [facility] Centerment on above:Performed By: #### THYRABS #### [facility] [address] [place] [address] Dr. Timi PraterT3, TOTAL (TRIIODOTHYRONINE)on 95-05-3241E8, QSLJT824 ng/dLNormal 71-180The [facility] CenterComment on above:Performed By: #### OVAPE #### [facility] [address] [place] [address] Dr. Timi PraterFREE T3on 67-74-1074HFPV T32.65 pg/mlLNormal2.18-3.98The [facility] CenterCommclaren lapeer region on above:Performed By: #### CDIFPOC #### [facility] [address] [place] [address] Dr. Timi PraterTSHon 96-19-0962PFG9.156 uIU/mLNormal0.358-3.740The [facility] CenterCommclaren lapeer region on above:Performed By: #### CDIFPOC #### [facility] [address] [place] [address] Dr. Timi Siddiqui PYLORI AG STOOLon 09-14-2022H. pylori Stool Ag, EIA NegativeNormalNegativeHarrison Community HospitalCommclaren lapeer region on above:Performed By: #### HPYLORI #### [facility] [address] [place] [address] Dr. Timi Gupta. DIFF PCRon 09-12-2022. DIFFICILE PCRNegativeNormalNEGATIVEHarrison Community HospitalCommclaren lapeer region on above:Performed By: #### CDIFPOC #### [facility] [address] [place] [address] Dr. Timi Alvarado CULTUREon 01-15-6719Llfzetjjelral CultureFinal reportNormal The [facility] CenterCommclaren lapeer region on above:Performed By: #### OVAPE #### [facility] [address] [place] [address] Dr. Timi Romero coli Shiga Toxin EIANegativeNormalNegativeThe [facility] Comment on above:Performed By: #### OVAPE #### [facility] [address] [place] [address] Dr. Timi Velasquez 1CommentGreen Cross HospitalComment on above:Result Comment: No Salmonella or Shigella recovered.Performed By: #### OVAPE #### [facility] [address] [place] [address] Dr. Timi Velasquez Comment: No Campylobacter species isolated. Salmonella/Shigella ScreenFinal reportNoCincinnati Shriners HospitalComment on above:Performed By: #### OVAPE #### [facility] [address] [place] [address] Dr. Timi PraterCALPROTECTIN, FECALon 33-74-2674Kabcomkyhpdo, Fecal<99Ixutob7-129 [facility] HospitalComment on above:Result Comment: Concentration Interpretation Follow-Up <16 - 50 ug/g Normal None >50 -120 ug/g Borderline Re-evaluate in 4-6 weeks >120 ug/g Abnormal Repeat as clinically indicatedPerformed By: #### CALPOO #### [facility] [address] [place] [address] Dr. Timi Gupta. DIFF PCRon 08-30-2022. DIFFICILE PCRNegativermalNEGATIVEHarrison Community HospitalComment on above:Performed By: #### OVAPE #### [facility] [address] [place] [address] Dr. Timi PadronOSTRIDIUM DIFFICILE PCRon 08-26-2022 difficile Toxin Gene RUCHI NegativeNormalNegativeHarrison Community HospitalComment on above:Performed By: #### CALPOO #### [facility] [address] [place] [address] Dr. Timi Newman URINE PROFILEon 02-97-3762Ykqcxbjyg Ql (U)NegativeNormal NEGATIVEHarrison Community HospitalComment on above:Performed By: #### THYRABS #### [facility] [address] [place] [address] Dr. Timi Padronarity (U)CLEARNormalCLEARHarrison Community HospitalComment on above: Performed By: #### THYRABS #### [facility] [address] [address] [address] Timi Powell (U)LT. YELLOWNormalYELLOWHarrison Community HospitalComment on above:Performed By: #### THYRABS #### [facility] [address] [address] [address] Timi Sue micrscopic examination will be performed if indicated. NormalThe [facility]land HospitalComment on above:Performed By: #### THYRABS #### [facility] [address] [address] [address] Timi PraterGlucose Ql (U)NegativeNormalNEGATIVEHarrison Community HospitalComment on above:Performed By: #### THYRABS #### [facility] [address] [place] [address] Dr. Timi PraterHemoglobin Ql (U)NegativeNormalNEGATIVECleveland Clinic Fairview Hospital on above:Performed By: #### THYRABS #### [facility] [address] [place] [address] Dr. Timi PraterKetones Ql (U)NegativeNormalNEGATIVEHarrison Community HospitalComment on above:Performed By: #### THYRABS #### [facility] [address] [place] [address] Dr. Timi PraterLEUKOCYTESNegativeNormalNEGATIVEHarrison Community HospitalComment on above:Performed By: #### THYRABS #### [facility] [address] [place] [address] Dr. Timi PraterNitrite Ql (U)NegativeNormalNEGATIVEHarrison Community HospitalComment on above:Performed By: #### THYRABS #### [facility] [address] [address] [address] Timi PraterpH (U)7.0 [pH]Normal5-9[facility] HospitalComment on above: Performed By: #### THYRABS #### [facility] [address] [address] [address] Timi PraterSPEC GRAVITY1.581Sggtke5.005-<=1.025The [facility] CenterComment on above:Performed By: #### THYRABS #### [facility] [address] [place] [address] Dr. Timi Nickerson PROTEINTRACENormalNEGATIVE/ TRACEThe [facility] CenterComment on above:Performed By: #### THYRABS #### [facility] [address] [place] [address] Dr. Timi Pinzon MICRO INDNOT INDICATEDNormalThe [facility] CenterComment on above:Performed By: #### THYRABS #### [facility] [address] [place] [address] Dr. Timi Acuña Qn (U)0.2 {Trini'U}/dLNormal0.2 - 1.0The [facility] CenterComment on above:Performed By: #### THYRABS #### [facility] [address] [place] [address] Dr. Timi Gupta. DIFF PCRon 08-22-2022. DIFFICILE PCRNegativeNormalNEGATIVEThe [facility] CenterComment on above:Performed By: #### CDIFPOC #### [facility] [address] [place] [address] Dr. Timi Rios RITA ADMITon [id number] [Catalytic activity/Vol]56 U/L Wwpxrj85-826Gjz [facility] CenterComment on above:Performed By: #### OVAPE #### [facility] [address] [place] [address] Dr. Timi Pierre.MB [Mass/Vol]ng/mLNormal<=3.60The [facility] CenterComment on above:Performed By: #### OVAPE #### [facility] [address] [place] [address] Dr. Timi PraterHSTROP9.0 pg/mLNormal4.0-51.3The [facility] CenterComment on above:Result Comment: CUT-OFF POINTS HAVE BEEN ESTABLISHED BASED ON THE FOURTH UNIVERSAL DEFINITIONS OF MYOCARDIAL INFARCTION. THE UPPER REFERENCE LIMIT (URL) OF TROPONIN, DEFINED THE 99TH PERCENTILE OF cTnI DISTRIBUTION IN A REFERENCE POPULATION, HAS BEEN CONFIRMED THE DECISION THRESHOLD FOR CA DIAGNOSIS.Performed By: #### OVAPE #### [facility] [address] [place] [address] Dr. Timi PraterMYO15 ng/mLNormal9-82[facility] HospitalComment on above: Performed By: #### OVAPE #### [facility] [address] [place] [address] Dr. Timi Willett AUTO DIFFon 27-94-2269SZRK #0.1 103/ulNormal0.0-0.1The [facility] CenterComment on above:Performed By: #### CALPOO #### [facility] [address] [place] [address] Dr. Timi PraterBasophils/100 WBC (Bld)0.7 %Normal0.2-2.0[facility] Comment on above:Performed By: #### CALPOO #### [facility] [address] [place] [address] Dr. Timi Mejia #0.2 103/ulNormal0.0-0.7The [facility] CenterComment on above: Performed By: #### CALPOO #### [facility] [address] [place] [address] Dr. Timi oRmeroosinophils/100 WBC (Bld)2.7 %Normal0.9-7.0[facility] Comment on above:Performed By: #### CALPOO #### [facility] [address] [place] [address] Dr. Timi Romerorythrocyte distribution width (RBC) [Ratio]11.9 %Cuquax24.0-15.[address] [facility] CenterComment on above:Performed By: #### CALPOO #### [facility] [address] [place] [address] Dr. Timi PraterHematocrit (Bld) [Volume fraction]39.0 %Pllcjd09.0-48.0[facility] HospitalComment on above:Performed By: #### CALPOO #### [facility] [address] [place] [address] Dr. Timi PraterHemoglobin (Bld) [Mass/Vol]13.3 g/vEUwqlew80.0-16.0The [facility] CenterComment on above:Performed By: #### CALPOO #### [facility] [address] [place] [address] Dr. Timi Delong #0.02 10e3/ulNormal0.00-0.03The [facility] CenterComment on above:Performed By: #### CALPOO #### [facility] [address] [place] [address] Dr. Timi Delong %0.2 %Normal0.0-0.5The [facility] CenterComment on above: Performed By: #### CALPOO #### [facility] [address] [place] [address] Dr. Timi Malcolm #3.7 103/ulNormal1.2-3.8The [facility] CenterComment on above:Performed By: #### CALPOO #### [facility] [address] [place] [address] Dr. Timi Malcolmhocytes/100 WBC (Bld)43.6 %Rkdeou20.5-60.0The [facility] CenterComment on above:Performed By: #### CALPOO #### [facility] [address] [place] [address] Dr. Timi SandersUAL DIFF REQNONormalThe [facility] CenterComment on above: Performed By: #### CALPOO #### [facility] [address] [place] [address] Dr. Timi Escamilla (RBC) [Entitic mass]31.7 jjYscmku67.7-34.0The [facility] CenterComment on above:Performed By: #### CALPOO #### [facility] [address] [place] [address] Dr. Timi Escamilla (RBC) [Mass/Vol]34.1 g/eUSzkhmv45.9-35.2The [facility] CenterComment on above:Performed By: #### CALPOO #### [facility] [address] [place] [address] Dr. Timi EscamillaV (RBC) [Entitic vol]93.1 tWGgfcop54.0-99.0The [facility] Centerment on above:Performed By: #### CALPOO #### [facility] [address] [place] [address] Dr. Timi Ortiz #0.8 103/ulNormal0.3-0.8The [facility] CenterComment on above:Performed By: #### CALPOO #### [facility] [address] [place] [address] Dr. Timi Turciosocytes/100 WBC (Bld)8.9 %Normal1.7-12.0The [facility] Comment on above:Performed By: #### CALPOO #### [facility] [address] [place] [address] Dr. Timi Mott #3.8 103/ulNormal1.4-6.5The [facility] Centerment on above:Performed By: #### CALPOO #### [facility] [address] [place] [address] Dr. Timi Guzmanutrophils/100 WBC (Bld)43.9 %Bwtsvx06.0-75.0The [facility] CenterCommclaren lapeer region on above:Performed By: #### CALPOO #### [facility] [address] [place] [address] Dr. Timi Zamanlet mean volume (Bld) [Entitic vol]11.1 fLNormal9.5-13.5The [facility] Centerment on above:Performed By: #### CALPOO #### [facility] [address] [place] [address] Dr. Timi PraterPLT218 103/agHettgl973-100Upu [facility] CenterCommclaren lapeer region on above: Performed By: #### CALPOO #### [facility] [address] [place] [address] Dr. Timi PraterRBC4.19 106/ulCritically low4.20-5.40The [facility] Centerment on above:Performed By: #### CALPOO #### [facility] [address] [place] [address] Dr. Timi PraterWBC8.6 103/ulNormal4.0-11.0The [facility] CenterComment on above: Performed By: #### CALPOO #### [facility] [address] [place] [address] Dr. Timi TrujilloF 14(COMP METB)on 28-63-3268Gfmshlt [Mass/Vol]4.2 g/dLNormal 3.4-5.0The [facility] CenterComment on above:Performed By: #### OVAPE #### [facility] [address] [place] [address] Dr. Timi PraterAlbumin/Globulin [Mass ratio]1.3 {ratio}NormalThe [facility] CenterComment on above:Performed By: #### OVAPE #### [facility] [address] [place] [address] Dr. Timi GreenbergP [Catalytic activity/Vol]50 U/DGebfjq10-508Eub [facility] CenterComment on above:Performed By: #### OVAPE #### [facility] [address] [place] [address] Dr. Timi Pizarro [Catalytic activity/Vol]13 U/LCritically aba51-59Und [facility] CenterComment on above:Performed By: #### OVAPE #### [facility] [address] [place] [address] Dr. Timi Salmon gap [Moles/Vol]13.8 mmol/LNormalThe [facility] Comment on above:Performed By: #### OVAPE #### [facility] [address] [place] [address] Dr. Timi PraterAST [Catalytic activity/Vol]14 U/LCritically mtk82-79Vjc [facility] CenterComment on above:Performed By: #### OVAPE #### [facility] [address] [place] [address] Dr. Timi PraterBilirubin [Mass/Vol]0.4 mg/dLNormal0.2-1.0The [facility] Comment on above:Performed By: #### OVAPE #### [facility] [address] [address] [address] Timi PraterCalcium [Mass/Vol]9.2 mg/dLNormal8.5-10.1The [facility] Comment on above:Performed By: #### OVAPE #### [facility] [address] [address] [address] Timi PraterChloride [Moles/Vol]102 mmol/PAbrwkv32-924Aca [facility] Comment on above:Performed By: #### OVAPE #### [facility] [address] [address] [address] iTmi PraterCO2 [Moles/Vol]26.9 mmol/ZYtrdkz48.0-32.0The [facility] Comment on above:Performed By: #### OVAPE #### [facility] [address] [address] [address] Timi PraterCreatinine [Mass/Vol]0.73 mg/dLNormal0.55-1.02The [facility] CenterComment on above:Performed By: #### OVAPE #### [facility] [address] [address] [address] Timi RomeroGFR-AF UZBEK>60Normal>=60The [facility] CenterComment on above:Performed By: #### OVAPE #### [facility] [address] [address] [address] Timi RomeroGFR-NON AF UZBEK>60Normal>=60The [facility] CenterComment on above:Performed By: #### OVAPE #### [facility] [address] [address] [address] Timi PraterGlobulin (S) [Mass/Vol]3.3 g/dLNormalThe [facility] CenterComment on above:Performed By: #### OVAPE #### [facility] [address] [address] [address] Timi PraterGlucose [Mass/Vol]107 mg/dLCritically cbbm48-771Dtl [facility] CenterComment on above:Performed By: #### OVAPE #### [facility] [address] [address] [address] Timi PraterPotassium [Moles/Vol]3.7 mmol/LNormal3.5-5.1[facility] Comment on above:Performed By: #### OVAPE #### [facility] [address] [address] [address] Timi PraterProtein [Mass/Vol]7.5 g/dLNormal6.4-8.2[facility] Comment on above:Performed By: #### OVAPE #### [facility] [address] [address] [address] Timi PraterSodium [Moles/Vol]139 mmol/VFjkhwm785-541AliHarrison Community Hospital Comment on above:Performed By: #### OVAPE #### [facility] [address] [place] [address] Dr. Timi PraterUrea nitrogen [Mass/Vol]14.0 mg/dLNormal7.0-18.0[facility] HospitalComment on above:Performed By: #### OVAPE #### [facility] [address] [place] [address] Dr. Timi PraterUrea nitrogen/Creatinine [Mass ratio]19.2 mg/mgNoCincinnati Shriners HospitalComment on above:Performed By: #### OVAPE #### [facility] [address] [place] [address] Dr. Timi Sanz ACOG PANEL 2: 21 to 29on 08-21-2022..NormalThe [facility] CenterComment on above:Performed By: #### OVAPE #### [facility] [address] [place] [address] Dr. Timi Martinez Gdln ACOG Ipgsiao26-26UmdpqgGxqCincinnati Shriners HospitalComment on above:Performed By: #### OVAPE #### [facility] [address] [place] [address] Dr. Timi PraterDIAGNOSIS:CommentAbRiverside Methodist HospitalComment on above: Result Comment: EPITHELIAL CELL ABNORMALITY. ATYPICAL SQUAMOUS CELLS OF UNDETERMINED SIGNIFICANCE (ASC-US).Performed By: #### OVAPE #### [facility] [address] [address] [address] Capellan ChangElectronically signed by:[facility] Comment on above:Result Comment: Maranda Segal MD, PathologistPerformed By: #### OVAPE #### [facility] [address] [address] [address] Timi PraterHPV AptimaNegativeNormalNegativeThe [facility] CenterComment on above:Result Comment: This nucleic acid amplification test detects fourteen high-risk HPV types (16,18,31,33,35,39,45,51,52,56,58,59,66,68) without differentiation.Performed By: #### OVAPE #### [facility] [address] [place] [address] Dr. Timi PraterMethodology:[facility] on above: Result Comment: This liquid based ThinPrep(R) pap test was screened with the use of an image guided system.Performed By: #### OVAPE #### [facility] [address] [place] [address] Dr. Timi PraterNote:CommentMemorial Health System Marietta [facility] Hospital on above:Result Comment: The Pap smear is a screening test designed to aid in the detection of premalignant and malignant conditions of the uterine cervix. It is not a diagnostic procedure and should not be used as the sole means of detecting cervical cancer. Both false-positive and false-negative reports do occur. .Performed By: #### OVAPE #### [facility] [address] [address] [address] Timi PraterPathologist Provided [id number] Medical [facility] Comment on above:Result Comment: R87.610Performed By: #### OVAPE #### [facility] [address] [address] [address] Timi PraterPerformed by:[facility] on above: Result Comment: Melia Holguin, Orthotics Prosthetics Technician (ASCP)Performed By: #### OVAPE #### [facility] [address] [place] [address] Dr. Timi PraterRecommendation:CommentAbAdams County Regional Medical Center on above:Result Comment: Suggest follow up as clinically appropriate.Performed By: #### OVAPE #### [facility] [address] [place] [address] Dr. Timi PraterReflex Criteria:CommentMemorial Health System Marietta Memorial Hospital on above:Result Comment: See below for HPV testing results. .Performed By: #### OVAPE #### [facility] [address] [place] [address] Dr. Timi PraterSpecimen adequacy:CommentMemorial Health System Marietta Memorial Hospital on above:Result Comment: Satisfactory for evaluation. Endocervical and/or squamous metaplastic cells (endocervical component) are present.Performed By: #### OVAPE #### [facility] [address] [place] [address] Dr. Timi Gupta. DIFF PCRon 07-27-2022. DIFFICILE PCRPositiveCritically abnormalNEGATIVEThe [facility] CenterComment on above:Performed By: #### THYRABS #### [facility] [address] [place] [address] Dr. Timi Gupta. DIFF PCRon 07-13-2022. DIFFICILE PCRNegativeNormalNEGATIVEThe [facility] CenterComment on above:Performed By: #### CDIFPOC #### [facility] [address] [place] [address] Dr. Timi PraterUS SINGLE QUAD RT UPPERon [id number] SINGLE QUAD RT UPPER EXAMINATION: US SINGLE [...] authenticated by: DARA HUMPHREY Date: 2022-05-11 17:22NormalThe [facility] Medical CenterFECAL FAT QUANTITATIVEon 90-01-1449Myacd Weight (Total)[address] [facility] CenterComment on above:Performed By: #### CALPOO #### [facility] [address] [place] [address] Dr. Timi Gandhi, (Fecal Lipids)Qn1.3 g/24 hrNormal0.0-7.1The [facility] Centerment on above:Result Comment: This value is based on a 72 hour stool collection.Performed By: #### CALPOO #### [address] [place] [address] Dr[address] Timi PraterLACTOFERRIN FECAL QUANTon 19-94-9550Mlgzgfzymyu, Fecal, Quant. <1.19Lpqukj0.00-7.24The [facility] on above:Result Comment: Results verified by [...] bowel syndrome (IBS).Performed By: #### CALPOO #### [facility] [address] [place] [address] Dr. Timi PraterPANCREATIC ELASTASE FECALon 90-76-4985Epttmeikql Elastase, Fecal 369 ug Elast./gNormal>200The [facility] on above:Result Comment: Severe Pancreatic Insufficiency: <100 Moderate Pancreatic Insufficiency: 100 - 200 Normal: >200Performed By: #### THYRABS #### [place] [address] Dr[address] Timi PraterC. DIFF PCRon 2C. DIFFICILE PCRNegativeNormalNEGATIVEThe [facility] Centerment on above:Performed By: #### OVAPE #### [facility] [address] [place] [address] Dr. Timi Blanchard PANEL (PCR)on 86-80-3886Penlnxcxxv F 40/41Not detectedNormal NOT DETECTEDThe [facility] CenterComment on above:Performed By: #### GIPANEL #### [facility] [address] [place] [address] Dr. Timi PraterAstrovirusNot detectedNormalNOT DETECTEDThe [facility] Comment on above:Performed By: #### GIPANEL #### [facility] [address] [place] [address] Dr. Timi Gupta. Diff toxin A/BNot detectedNormalNOT DETECTEDThe [facility] CenterComment on above:Performed By: #### GIPANEL #### [facility] [address] [place] [address] Dr. Timi ChupylobacterNot detectedNormalNOT DETECTEDThe [facility] Comment on above:Performed By: #### GIPANEL #### [facility] [address] [place] [address] Dr. Timi TrevinoyptosporidiumNot detectedNormalNOT DETECTEDThe [facility] CenterComment on above:Performed By: #### GIPANEL #### [facility] [address] [place] [address] Dr. Timi Christensen. CayetanensisNot detectedNormalNOT DETECTEDThe [facility] CenterComment on above:Performed By: #### MEREDITHANEL #### [facility] [address] [place] [address] Dr. Timi Santos Coli Z365Nzz ApplicableNormalNot ApplicableThe [facility] CenterComment on above:Performed By: #### GIPANEL #### [facility] [address] [place] [address] Dr. Timi Santos histolyticaNot detectedNormalNOT DETECTEDThe [facility] Comment on above:Performed By: #### GIPANEL #### [facility] [address] [place] [address] Dr. Timi RomeroAECNot detectedNormalNOT DETECTEDThe [facility] CenterComment on above:Performed By: #### GIPANEL #### [facility] [address] [address] [address] Timi Graham detectedNormalNOT DETECTEDThe [facility] CenterComment on above:Performed By: #### GIPANEL #### [facility] [address] [address] [address] Timi RomeroPECNot detectedNormalNOT DETECTEDThe [facility] CenterComment on above:Performed By: #### GIPANEL #### [facility] [address] [address] [address] Timi RomeroTEHaley detectedNormalNOT DETECTEDThe [facility] CenterComment on above:Performed By: #### MEREDITHANEL #### [facility] [address] [address] [address] Timi Rodriguez LambliaNot detectedNormalNOT DETECTEDThe [facility] Comment on above:Performed By: #### DAVEL #### [facility] [address] [address] [address] Timi BRYSONMercy Health Lorain HospitalComment on above:Performed By: #### MEREDITHANEL #### [facility] [address] [address] [address] Timi aJy ANITA HEADERGI [facility] Comment on above:Performed By: #### MEREDITHANEL #### [facility] [address] [address] [address] Timi Moon ECOLIGI PANEL DIARRHEAGENIC E.COLI / SHIGELLAGreen Cross HospitalComment on above:Performed By: #### MEREDITHANEL #### [facility] [address] [address] [address] Timi Moon INFOMiddletown HospitalComment on above: Result Comment: EAEC- Enteroaggregative E. Coli EPEC- Enteropathogenic E. Coli ETEC- Enterotoxigenic E. Coli lt/st STEC- Shigella-like toxin-producing E. Coli stx1/stx2 EIEC- Shigella/Enteroinvasive E. ColiPerformed By: #### GIPANEL #### [facility] [address] [address] [address] Timi Moon PARASITESGI PANEL [facility] Comment on above:Performed By: #### MEREDITHANEL #### [facility] [address] [address] [address] Timi Moon VIRUSGI PANEL VIRUSESGreen Cross HospitalComment on above:Performed By: #### MEREDITHANEL #### [facility] [address] [address] [address] Timi Heartrovirus GI/GIINot detectedNormalNOT DETECTEDThe [facility] CenterComment on above:Performed By: #### MEREDITHANEL #### [facility] [address] [address] [address] Timi Ibanez ShigelloidesNot detectedNormalNOT DETECTEDThe [facility] CenterComment on above:Performed By: #### DAVEL #### [facility] [address] [address] [address] Timi PraterRotavirus ANot detectedNormalNOT DETECTEDHarrison Community Hospital Comment on above:Performed By: #### DAVEL #### [facility] [address] [address] [address] Timi PraterSalmonellaNot detectedNormalNOT DETECTEDHarrison Community Hospital Comment on above:Performed By: #### DAVEL #### [facility] [address] [address] [address] Timi PraterSapovirusNot detectedNormalNOT DETECTEDHarrison Community Hospital Comment on above:Performed By: #### MEREDITHANEL #### [facility] [address] [address] [address] Timi PraterSTECNot detectedNormalNOT DETECTEDThe [facility] CenterComment on above:Performed By: #### DAVEL #### [facility] [address] [address] [address] Timi PraterVibrioNot detectedNormalNOT DETECTEDThe [facility] CenterComment on above:Performed By: #### GIPANEL #### [facility] [address] [address] [address] Timi Gregory CholeraNot detectedNormalNOT DETECTEDHarrison Community Hospital Comment on above:Performed By: #### GIPANEL #### [facility] [address] [place] [address] Dr. Timi Wallis. EnterocoliticaNot detectedNormalNOT DETECTEDThe [facility] CenterComment on above:Performed By: #### GIPANEL #### [facility] [address] [address] [address] Timi Alvarado CULTUREon 68-55-3903Vgbafbziqfqrk CultureFinal reportNormal [facility] Community HospitalComment on above:Performed By: #### CXSTOOL #### [facility] [address] [place] [address] Dr. Timi pandey Shiga Toxin EIANegativeNormalNegativeHarrison Community Hospital Comment on above:Performed By: #### CXSTOOL #### [facility] [address] [place] [address] Dr. Timi Velasquez 1CommentGreen Cross HospitalComment on above:Result Comment: No Salmonella or Shigella recovered.Performed By: #### CXSTOOL #### [facility] [address] [place] [address] Dr. Timi Velasquez Comment: No Campylobacter species isolated. Salmonella/Shigella ScreenFinal reportNoCincinnati Shriners HospitalComment on above:Performed By: #### CXSTOOL #### [facility] [address] [place] [address] Dr. Timi PadronOSTRIDIUM DIFFICILE PCRon 02-03-2022 difficile Toxin Gene RUCHI NegativeNormalNegativeHarrison Community HospitalCommclaren lapeer region on above:Performed By: #### CDIFPOC #### [facility] [address] [place] [address] Dr. Timi Gupta. DIFF PCRon 01-14-2022. DIFFICILE PCRNegativeNormalNEGATIVEThe [facility] CenterComment on above:Performed By: #### CALPOO #### [facility] [address] [address] [address] Capellan ChangEpatriciooscopy Reporton 23-24-2392Dkacpgxvp ReportMR#: [id number] [facility] Pt. Name: Chioma Henao Surgery Date: 12/29/2021 Room #: Z0 Date of : 2000 PROCEDURE NOTE ATTENDING: Paula Huggins MD PROCEDURE: Colonoscopy with FMT. INDICATION FOR PROCEDURE: Recurrent C diff. TYPE OF ANESTHESIA: Conscious sedation, 6 mg of Versed, 150 mcg of fentanyl, and 25 mg of Benadryl. DIRECTOR CORPORATE SECURITY PHYSICIAN: Darren Baig M.D. QUALITY OF THE [...] Baig MD Date Trans: 12/30/2021 03:17 A/mmo DN_JN:[id number] cc: Gabino Owen M.D. [address], [place] [address]OjbapxSwkMercy Health [address] [facility] Hospital SARS COV2 IDon 63-08-3708LEMJ-CoV-2 (COVID-19) RNA RUCHI+probe Ql (Unsp spec)NegativeNormal NEGATIVEThe [facility] HospitalComment on above:Result Comment: ID NOW COVID-19 assay [...] Compliance, or Certificate of Accreditation.Performed By: #### [id number] #### [facility] [address] [facility] [place] [address], [facility] URINE PREGNANCYon 68-91-8732Begt HCG ( test) Ql (U)NegativeNormalNEGATIVEThe [facility] HospitalComment on above:Result Comment: Performed in PACUPerformed By: #### [id number] #### [facility] [address] [facility] [place] [address], [facility] Surgery Office/Clinic Noteon 02-25-2206Avsgnnd Surgery Office/Clinic NoteChief Complaint post operative follow [...] Use:., 06/21/2021 Family History Cancer: Father. Stroke: Mother.[facility] - AndersonComment on above:Result Comment: Electronically Signed By: KALEB MACKEY, Ana Palmerbr\Date and Time Signed: 07/08/21 16:21 ESTPathology Noteon 69-50-4031Xypvcjlth Note [id number]#1.00CD:[address] [place], [place] [address]Operative Reporton 30-86-0499Ywwswmeju Report [id number]#1.00CD:[address] [place], [place] [address]Lab Reportson 20-13-4954Jqz Reports [id number]#1.00CD:[address] [place], [place] [address]Consent for Procedure/Surgeryon 91-12-0774Ikqcbgt for Procedure/Surgery [id number]#1.00CD:[address] [place], [place] [address]Provider Letter [facility] 13-71-5016Qnvtvyqs Letter [facility] Gabino Owen, [address] [place] [address] Re: CHIOMA HENAO Date of : 2000 Thank you for your referral of Chioma Henao who was seen on consultation on 06/21/2021 for daily nausea with abdominal cramping. An EGD is planned for further evaluation. I have enclosed my consultation note for your review. I will be happy to follow Chioma. Sincerely, Ana De La Cruz MD General SurgeryNoMercy Health Allen HospitalAmbulatory Clinical Summaryon 81-27-0433Pecxerzivi Clinical Summary {[id number]-[id number]-16-s6-7h-81-m4-9b-ab-fd-79-68}CD:[id number] Health Allen HospitalPhysician Referralon 58-88-6785Luwerejvt Referral [id number]#1.00CD:127NoMercy Health Allen HospitalCOVID Quick Testingon 77-45-6146GhvdlcNeuhurrkLjhmt [employer]CH Other S. pyogenes Ag Ql (Throat)on 05-05-2021. pyogenes Org specific cx Ql (Throat)NegativeNort Quick2LAUNCH Other Ambulatory Clinical Summaryon 80-18-2667Thhovyuiit Clinical Summary{ex-[id number]-1z-fe-4a-4o-pk-n4-v1-7h-47-eb-d1-17}CD:192025FqyaxaMercy Health Kings Mills HospitalGeneral Surgery Office/Clinic Noteon 01-04-2021 General Surgery [...] Use:., 01/04/2021 Family History Cancer: Father. Stroke: Mother.[facility] - AndersonComment on above:Result Comment: Electronically Signed By: KALEB MACKEY, Ana Lan\Date and Time Signed: 01/04/21 14:32 EDTPathology Noteon 85-18-4858Gkmeiwgnz Note [id number]#1.00CD:[address] [place], [place] [address]Outside Colonoscopyon 51-02-8498Nygkaie Colonoscopy [id number]#1.00CD:[address] [place], [place] [address]Lab Reportson 77-65-1815Ptm Reports [id number]#1.00CD:[address] [place], [place] [address]Consent for Procedure/Surgeryon 94-54-5514Jfxmcii for Procedure/Surgery [id number]#1.00CD:[address] [place], [place] [address]Provider Letter FTMCon 75-30-8913Zjakhyek Letter [facility] Gabino Owen, [facility] [place] [address] Re: CHIOMA HENAO Date of : 2000 Thank you for your referral of Chioma Henao who was seen on consultation on December 07, 2020, for colonoscopy due to abdominal pain and diarrhea. A colonoscopy is planned. I have enclosed my consultationnotes for your review. I will be happy to follow Chioma should her symptoms persist. Sincerely, Ana De La Cruz MD General SurgeryOur Lady of Mercy Hospital - AndersonAmbulatory Clinical Summaryon 86-34-2378Gokhojkmuv Clinical Summary {[id number]-[id number]-vm-u7-73-1c-bj-0b-7c-0f-34}CD:090120QgimueSlmzkeMercy Health Allen HospitalPatient Educationon 30-23-6663Tezfsud EducationPreventive Health Exercising to Stay Healthy To [...] Yard work, such as: ? Pushing a bioinformatics analyst. ? Raking and bagging leaves. ? Washing [...] 08/11/2011 Document Revised: 06/21/2018 Document Reviewed: 05/30/2018 [employer] Patient Education ? 2020 [employer] Radiology Colonoscopy, Adult A colonoscopy is [...] if you have certain (more content not included)...[facility] Physician Referralon 49-18-0674Jaryyfirc Referral [id number]#1.00CD:127NormalMercy Health Tiffin HospitalNo Panel Informationon 39-97-8956Gechxggcq Clinic Vital Signs Date TimeVital SignValuePerforming GmwglsckqHvprgbxr16-48-3247 13:52-0400Body ecljxz685.6 cmCorey Heike DO Work Phone: [facility] HospitalZefvgaozyf06-84-0588 13:52-0400Body mass index (BMI) [Ratio]19.4 kg/e2Ajdog Heike DO Work Phone: [phone] [place], [place] [address]Ongtvjlgqq89-57-2824 13:52-0400Body ewsrtl38.26 kgCorey Heike DO Work Phone: [facility] HospitalLbhjjehkoc37-22-3188 13:52-0400Diastolic blood rfycoaqz01 mm[Hg]Jeremiah Heike DO Work Phone: [facility] HospitalKnezaywyrr99-44-5163 13:52-0400Systolic blood jxitoshx539 mm[Hg]Jeremiah Heike DO Work Phone: [facility] HospitalXbjypymjsl94-86-9317 09:59-0400Body pwmsoe731.56 cmSelect [facility]04-23-2025 09:59-0400Body mass index (BMI) [Ratio]19.2 kg/u5QduijjczqSelect [facility]04-23-2025 09:59-0400Body wstjgjjxenv25.3 [degF][facility]04-23-2025 09:59-0400Body bjpfie46.8 kgSelect [facility]04-23-2025 09:59-0400Diastolic blood srlpsnpe36 mm[Hg][facility]04-23-2025 09:59-0400 Heart rate78 /minSelect Medical Specialty Hospital - [facility]04-23-2025 09:59-8827EnY3% (BldA) [Mass fraction]98 %[facility]04-23-2025 09:59-0400 Systolic blood dbadgaea657 mm[Hg][facility]02-12-2025 11:00-0500Diastolic blood mm[Hg]Dara Butler Jr., DO Work Phone: [facility]02-12-2025 11:00-0500Heart rate67 /min Dara Butler Jr., DO Work Phone: [facility]02-12-2025 11:00-0500Respiratory rate 18 /minDleticia Butler Jr., DO Work Phone: [facility]02-12-2025 11:00-7202PjX1% (BldA) [Mass fraction]100 %Dara Butler Jr., DO Work Phone: [facility]02-12-2025 11:00-0500Systolic blood adlkordt151 mm[Hg]Dara Butler Jr., DO Work Phone: [facility]02-12-2025 10:13-0500Body tlnuzb967.6 cmDabean Butler Jr., DO Work Phone: [facility]02-12-2025 10:13-0500Body mass index (BMI) [Ratio]19.74 kg/p6AqcrnDara Butler Jr., DO Work Phone: [facility]02-12-2025 10:13-0500Body temperature 98.4 [degF]Dara Butler Jr., DO Work Phone: [facility]02-12-2025 10:13-0500Body qwaklr63.16 kgDabean Butler Jr., DO Work Phone: [facility]12-24-2024 07:39-0500Body mass index (BMI) [Ratio]19.74 kg/e8YkiixuxaNae Ibarra MD Work Phone: [facility]12-24-2024 07:39-0500Body vdemgk24.16 kgNae Ibarra MD Work Phone: [facility]12-24-2024 07:39-0500Diastolic blood gankhnpp73 mm[Hg]Nae Ibarra MD Work Phone: [facility]12-24-2024 07:39-0500Heart rate80 /min Nae Ibarra MD Work Phone: [facility]12-24-2024 07:39-0500Systolic blood dvapauca29 mm[Hg]Nae Ibarra MD Work Phone: [facility]12-17-2024 14:18-0500Body ptahea129.56 cmSelect [facility]12-17-2024 14:18-0500Body mass index (BMI) [Ratio]19.9 kg/n5CndrfpbkoSelect Medical [facility]ty Hospital [facility]12-17-2024 14:18-0500Body jjtkfyjzygn86.9 [degF][facility]12-17-2024 14:18-0500Body nnvowy78.61 kgSelect [facility]12-17-2024 14:18-0500Diastolic blood zevyhqeu65 mm[Hg][facility]12-17-2024 14:18-0500 Heart rate77 /minSelect Medical Specialty Hospital - [facility]12-17-2024 14:18-9511HtT1% (BldA) [Mass fraction]98 %[facility]12-17-2024 14:18-0500 Systolic blood odtulufd818 mm[Hg][facility]12-12-2024 11:56-0500Body mass index (BMI) [Ratio]19.91 kg/i5Pbqeb Heike DO Work Phone: [facility] HospitalOyqvbiibar90-49-8303 11:56-0500Body zewcde61.62 kgCorey Heike DO Work Phone: [facility] HospitalMvxsndapob34-72-0669 11:56-0500Diastolic blood elcngnij63 mm[Hg]Jeremiah Canoo DO Work Phone: [facility] HospitalFnodyplaqc37-39-5239 11:56-0500Systolic blood uskusuxg937 mm[Hg]Jeremiah Canoo DO Work Phone: [facility] HospitalOxjuqujjtj15-89-2587 10:38-0400Body vuaetj978.6 cmPaula Pretty MD Work Phone: [facility]10-09-2024 10:38-0400Body mass index (BMI) [Ratio]18.88 kg/k8PeqkwvpxPaula Pretty MD Work Phone: [facility]10-09-2024 10:38-0400Body kzhcoq69.9 kgPaula Pretty MD Work Phone: [facility]10-09-2024 10:38-0400Diastolic blood rkxesodk95 mm[Hg]Paula Pretty MD Work Phone: [facility]10-09-2024 10:38-0400Heart rate86 /min Paula Pretyt MD Work Phone: [facility]10-09-2024 10:38-0400Respiratory rate 18 /minPaula Pretty MD Work Phone: [facility]10-09-2024 10:38-0400Systolic blood hguabzrj071 mm[Hg]Paula Pretty MD Work Phone: [facility]09-25-2024 10:51-0400Diastolic blood wnyxhkje93 mm[Hg]Whitney Ambriz MD MPH Work Phone: [facility]09-25-2024 10:51-0400 Heart rate68 /Wolf Ambriz MD MPH Work Phone: [facility]09-25-2024 10:51-0400 Respiratory rate18 /Wolf Ambriz MD MPH Work Phone: [facility]09-25-2024 10:51-0400 SaO2% (BldA) [Mass fraction]100 %Whitney Ambriz MD MPH Work Phone: [facility]09-25-2024 10:51-0400 Systolic blood exwwylfn40 mm[Hg]Whitney Ambriz MD MPH Work Phone: [facility]09-25-2024 10:21-0400 Body mcjiuyqsasl92.2 [degF]Whitney Ambriz MD MPH Work Phone: [phone])269-[address] [place], [place] [address]9-25-2024 08:23-0400 Body .6 cmLalbina Ambriz MD MPH Work Phone: [phone])530-[address] [place], [place] [address]9-25-2024 08:23-0400 Body mass index (BMI) [Ratio]19.74 kg/b4LlxsjWhitney Ambriz MD MPH Work Phone: [phone]09-25-2024 08:23-0400 Body qcokic04.16 kgWhitney Ambriz MD MPH Work Phone: [facility]09-04-2024 10:52-0400 Body nysyiq875.6 cmPaula Pretty MD Work Phone: [facility]09-04-2024 10:52-0400Body mass index (BMI) [Ratio]18.88 kg/h1YabqfzrvPaula Pretty MD Work Phone: [facility]09-04-2024 10:52-0400Body wglafy37.9 kgPaula Pretty MD Work Phone: [facility]09-04-2024 10:52-0400Diastolic blood ckuanbub81 mm[Hg]Paula Pretty MD Work Phone: [phone]09-04-2024 10:52-0400Heart rate81 /min Paula Pretty MD Work Phone: [facility]09-04-2024 10:52-0400Respiratory rate 16 /minPaula Pretty MD Work Phone: [address] [address]-04-2024 10:52-0400Systolic blood mm[Hg]Paula Pretty MD Work Phone: [facility]08-28-2024 13:20-0400Body ctpavm978.56 cmDO Ana Adejarrod Work Phone: [phone]08-28-2024 13:20-0400 Body mass index (BMI) [Ratio]19.2 kg/m2DO Ana Bolton Work Phone: [phone]08-28-2024 13:20-0400 Body myurmy90.8 kgDO Ana Bolton Work Phone: [phone]08-28-2024 13:20-0400 Diastolic blood abqslnae98 mm[Hg]DO Ana Bolton Work Phone: [phone]08-28-2024 13:20-0400 Heart rate78 /minDO Ana Bolton Work Phone: [phone] [place], [place] 0291108-28-2024 13:20-0400 SaO2% (BldA) [Mass fraction]99 %DO Ana Pachecojalenjarrod Work Phone: 1(414)454-[address] [place], [place] [address]8-28-2024 13:20-0400 Systolic blood mm[Hg]DO Ana Pachecojalenjarrod Work Phone: 1(389)814-[address] [place], [place] [address]8-14-2024 14:15-0400 Body mass index (BMI) [Ratio]18.19 kg/m8SxwmmWhitney Ambriz MD MPH Work Phone: [facility]08-14-2024 14:15-0400 Body inuszq48.08 Addison Ambriz MD MPH Work Phone: [facility]08-14-2024 14:15-0400 Diastolic blood rkokffzv76 mm[Hg]Whitney Ambriz MD MPH Work Phone: [facility]08-14-2024 14:15-0400 Heart rate97 /Wolf Ambriz MD MPH Work Phone: [facility]08-14-2024 14:15-0400 Systolic blood qdlylyxm732 mm[Hg]Whitney Ambriz MD MPH Work Phone: [facility]08-06-2024 15:21-0400 Body hymblw098.6 Neri Braden MD Work Phone: [phone]08-06-2024 15:21-0400Body mass index (BMI) [Ratio]19.38 kg/p3IbwifBola Braden MD Work Phone: [phone]08-06-2024 15:21-0400Body temperature 98.2 [degF]Bola Braden MD Work Phone: [phone]08-06-2024 15:21-0400Body acugnb10.26 kgBola Braden MD Work Phone: [phone]08-06-2024 15:21-0400Diastolic blood rlkbqteb26 mm[Hg]Bola Braden MD Work Phone: [phone]08-06-2024 15:21-0400Heart rate65 /min Bola Braden MD Work Phone: [phone]08-06-2024 15:21-0400Systolic blood yeeiwyjf467 mm[Hg]Bola Braden MD Work Phone: [phone]07-16-2024 14:42-0400Body tducyu048.6 cmWkelly Merida MD Work Phone: [facility]07-16-2024 14:42-0400 Body mass index (BMI) [Ratio]19.14 kg/f0VumenfDane Merida MD Work Phone: [facility]07-16-2024 14:42-0400 Body .58 kgDane Merida MD Work Phone: [facility]07-16-2024 14:42-0400 Diastolic blood mm[Hg]Dane Merida MD Work Phone: [facility]07-16-2024 14:42-0400 Heart rate77 /Francesca Merida MD Work Phone: [facility]07-16-2024 14:42-0400 Respiratory rate18 /Francesca Merida MD Work Phone: [facility]07-16-2024 14:42-0400 Systolic blood sgmzwakk866 mm[Hg]Dane Merida MD Work Phone: [facility]06-20-2024 09:24-0400 Body mauvlg687.6 cmMckenzie Shepherd [employer]IL[employer] SWITCHMAN-BLIND HANGER Work Phone: [facility]06-20-2024 09:24-0400Body mass index (BMI) [Ratio]19.53 kg/i7Ffrdebs Shepherd RAIL[employer] SWITCHMAN-BLIND HANGER Work Phone: [facility]06-20-2024 09:24-0400Body vuozbp14.62 kgMckenzie Shepherd RAILCAR SWITCHMAN-BLIND HANGER Work Phone: [facility]06-20-2024 09:24-0400Diastolic blood wincovvz49 mm[Hg]Mckenzie Shepherd RAILCAR SWITCHMAN-BLIND HANGER Work Phone: [facility]06-20-2024 09:24-0400Heart rate 73 /minMckenzie Shepherd RAILCAR SWITCHMAN-BLIND HANGER Work Phone: [facility]06-20-2024 09:24-0400Systolic blood ruswpwfy648 mm[Hg]Mckenzie Mendozaoll RAILCAR SWITCHMAN-BLIND HANGER Work Phone: [facility]05-15-2024 13:45-0400Body gmynyn771.6 cmAriella Mccoy RAILCAR SWITCHMAN.BLIND HANGER Work Phone: cBl[facility] HospitalKctkbv92-50-0846 13:45-0400Body mass index (BMI) [Ratio]19.22 kg/y9EumozohAriella Mccoy RAILCAR SWITCHMAN.BLIND HANGER Work Phone: [place] Vrttzr04-87-0867 13:45-0400Body temperature 98.01 [degF]Ariella Mccoy RAILCAR SWITCHMAN.BLIND HANGER Work Phone: ABl[facility] Bluffton HospitalYqbnpl26-67-8954 13:45-0400Body mbcusr18.8 kgAriella Mccoy RAILCAR SWITCHMAN.BLIND HANGER Work Phone: ZBl[facility] Bluffton HospitalFsocep66-64-8842 13:45-0400Diastolic blood sxiixfpt61 mm[Hg]Ariella Mccoy RAILCAR SWITCHMAN.BLIND HANGER Work Phone: YBl[facility] Bluffton HospitalBdsmvo75-01-4335 13:45-0400Heart rate90 /min Ariella Mccoy RAILCAR SWITCHMAN.BLIND HANGER Work Phone: LBlanch[facility] Bluffton HospitalBzvnvt14-95-6587 13:45-7529XeJ8% (BldA) [Mass fraction]99 %Ariella Mccoy RAILCAR SWITCHMAN.BLIND HANGER Work Phone: GBlanch[facility] Bluffton HospitalZobdrw31-57-7769 13:45-0400Systolic blood yacpbeou685 mm[Hg]Ariella Mccoy RAILCAR SWITCHMAN.BLIND HANGER Work Phone: LBl[facility] Bluffton HospitalNwyzzr80-67-1508 11:15-0400Body tficjs867.56 cmSelect [facility]05-09-2024 11:15-0400Body mass index (BMI) [Ratio]18.7 kg/g4RplhvblpfSelect [facility]ty [facility]05-09-2024 11:15-0400Body gofzdc98.58 kgSelect [facility]05-09-2024 11:15-0400Diastolic blood mm[Hg][facility]05-09-2024 11:15-0400 Heart rate83 /[facility]05-09-2024 11:15-0400 Respiratory rate18 /[facility]05-09-2024 11:15-0400 SaO2% (BldA) [Mass fraction]98 %[facility]05-09-2024 11:15-0400Systolic blood saxpyevz041 mm[Hg][facility] 11-15-2023 14:44-0400Body .6 cmPacc 1 Other Phone: [facility]04-25-2024 14:44-0400Body mass index (BMI) [Ratio]20.06 kg/m2Pacc 1 Other Phone: [place] [address]-25-2024 14:44-0400Body temperature 97.11 [degF]Pacc 1 Other Phone: [phone] [address]-25-2024 14:44-0400Body wikhaz10 kg Pacc 1 Other Phone: [phone] [address]-25-2024 14:44-0400Diastolic blood mm[Hg]Pacc 1 Other Phone: [phone] [address]-25-2024 14:44-0400Heart rate75 /minPacc 1 Other Phone: [phone] [address]-25-2024 14:44-0400Respiratory rate 18 /minPacc 1 Other Phone: [phone] [address]-25-2024 14:44-0291YwU2% (BldA) [Mass fraction]100 %Pacc 1 Other Phone: [phone] [address]-25-2024 14:44-0400Systolic blood ghtogkgq676 mm[Hg]Pacc 1 Other Phone: [place] [address]-01-2024 14:44-0400Body dthjot317.6 cmAevan Rushing MD Work Phone: [facility]04-01-2024 14:44-0400Body .62 kgSedrick Rushing MD Work Phone: [place] [address]-01-2024 14:44-0400Diastolic blood qkywofws96 mm[Hg]Sedrick Rushing MD Work Phone: [place] [address]-01-2024 14:44-0400Heart rate40 /min Sedrick Rushing MD Work Phone: [place] [address]-01-2024 14:44-0400Systolic blood leivijhl791 mm[Hg]Sedrick Rushing MD Work Phone: [facility]02-15-2024 14:00-0500Heart rate68 /min Isabelle Menon MD Work Phone: cBl[facility] Bluff[facility] HospitalPirrlj75-13-3566 14:00-0500Respiratory rate 22 /minIsabelle Menon MD Work Phone: 1([phone] [employer], [place] 2076202-15-2024 14:00-7183LdT4% (BldA) [Mass fraction]100 %Isabelle Menon MD Work Phone: [phone] [employer], [place] 2076202-15-2024 13:45-0500Diastolic blood xaifuhoe12 mm[Hg]Isabelle Menon MD Work Phone: cBl[facility] Bluff[facility] HospitalIpkwzj76-41-5427 13:45-0500Systolic blood lqqvskec535 mm[Hg]sIabelle Menon MD Work Phone: 1(637)634-[address] [employer], [place] 2076202-15-2024 13:27-0500Body temperature 97.2 [degF]Isabelle Menon MD Work Phone: 1([phone] [employer], [place] 2076211-15-2023 11:42-0500Body bvebuv74.26 kgIsabelle Menon MD Work Phone: cBl[facility] Bluff[facility] HospitalNuqqbv43-37-8183 11:42-0500Diastolic blood lxvosexo57 mm[Hg]Isabelle Menon MD Work Phone: 1([phone])211-[address] [employer], [place] 2076211-15-2023 11:42-0500Heart rate87 /min Isabelle Menon MD Work Phone: cBl[facility] Bluffton HospitalNzrdwp04-83-4022 11:42-0500Systolic blood mfeqhwgy532 mm[Hg]Isabelle Menon MD Work Phone: cBl[facility] Bluffton HospitalHkwjfs23-57-3521 11:30-0400Body yjxcfk560.56 cmAnalia Holliday Other [employer] Other 11-02-2023 11:30-0400Body mass index (BMI) [Ratio] 20.48 kg/d9AxmskuekAnalia Holliday Other [employer] Other 11-02-2023 11:30-0400Body .11 kgAnalia Holliday Other [employer] Other 11-02-2023 11:30-0400Diastolic blood whlyrirg00 mm[Hg] Analia Holliday Other [employer] Other 11-02-2023 11:30-0400Respiratory rate18 /minAnalia Holliday Other [facility] Other 11-02-2023 11:30-6281LkH3% (BldA) [Mass fraction]99 % Analia Holliday Other [employer] Other 11-02-2023 11:30-0400Systolic blood gqhvpjyp241 mm[Hg] Analia oHlliday Other [facility] Other 10-31-2023 11:10-0400Body qaijux072.6 cmDavid Hykes Jr., DO Work Phone: [facility]10-31-2023 11:10-0400Body hpcnih99.3 kgDavid Hykes Jr., DO Work Phone: [facility]07-18-2023 10:10-0400Body wyusxz531.6 cmDavid Hykes Jr., DO Work Phone: [facility]07-18-2023 10:10-0400Body iukyqh97.26 kgDavid Hykes Jr., DO Work Phone: [facility]07-18-2023 10:10-0400Diastolic blood mm[Hg]Dara Aleksadi Mak, DO Work Phone: [facility]07-18-2023 10:10-0400Heart rate67 /min Dara Aleksadi Mak, DO Work Phone: [facility]07-18-2023 10:10-3117OoW9% (BldA) [Mass fraction]100 %Dara Butler , DO Work Phone: [facility]07-18-2023 10:10-0400Systolic blood qevoopmi482 mm[Hg]Dara Butler , DO Work Phone: [facility]05-03-2023 10:00-0400Body fqoxno186.56 cmRdariana Reyez Other [employer] Other 05-03-2023 10:00-0400Body mass index (BMI) [Ratio] 19.91 kg/m2Rygurmeet Scovanner Other [employer] Other 05-03-2023 10:00-0400Body lhreuf31.62 kgRygurmeet Scovanner Other [employer] Other 05-03-2023 10:00-0400Diastolic blood exdwfdsr15 mm[Hg] Silvano Scovanner Other [employer] Other 05-03-2023 10:00-0400Systolic blood uzolqafx919 mm[Hg] Silvano Scovanner Other [employer] Other 10-06-2022 14:30-0400Body .56 Varun Parikh Other [employer] Other 10-06-2022 14:30-0400Body mass index (BMI) [Ratio] 19.74 kg/k6EojlfhdJaya Parikh Other noSummify Quick[employer]LAUNCH Other 10-06-2022 14:30-0400Body xafvna60.16 kgJaya Parikh Other nort [employer] Other 08-24-2022 15:29-0400Body xzeedt502.6 Komal Diallo MD Work Phone: [phone]08-24-2022 15:29-0400Body mass index (BMI) [Ratio]19.6 kg/m2Irena Diallo MD Work Phone: [phone]08-24-2022 15:29-0400Body awzzhi63.8 kgIrena Diallo MD Work Phone: [phone]08-24-2022 15:29-0400 Diastolic blood zlhtsuuq89 mm[Hg]Irena Diallo MD Work Phone: [phone]08-24-2022 15:29-0400Heart rate74 /minIrena Diallo MD Work Phone: [phone]08-24-2022 15:29-0400 Respiratory rate18 /minIrena Diallo MD Work Phone: [phone]08-24-2022 15:29-5000MhH2% (BldA) [Mass fraction]99 %Irena Diallo MD Work Phone: [phone]08-24-2022 15:29-0400Systolic blood jtoyisvc990 mm[Hg]Irena Diallo MD Work Phone: [phone]03-08-2022 12:00-0500Body qtitmq557.56 cmCmaxim Parikh Other [facility] Other 03-08-2022 12:00-0500Body mass index (BMI) [Ratio] 19.74 kg/l8EkaldruJaya Parikh Other [employer] Other 03-08-2022 12:00-0500Body ukfepk76.16 kgJaya Parikh Other [employer] Other 03-08-2022 12:00-0500Diastolic blood fgcirzgo50 mm[Hg] Jaya Parikh Other [employer] Other 03-08-2022 12:00-0500Systolic blood mm[Hg] Jaya Parikh Other [employer] Other 10-14-2021 10:30-0400Body .56 cmSjesus Negro Other [employer] Other 10-14-2021 10:30-0400Body mass index (BMI) [Ratio]20.6 kg/s3RdllnzzxmArlene Negro Other [employer] Other 10-14-2021 10:30-0400Body uukvzmzdvyy67.1 [degF] Arlene Negro Other [employer] Other 10-14-2021 10:30-0400Body giqags60.43 kgStkelly Negro Other [employer] Other 10-14-2021 10:30-0400Respiratory rate18 /minStepjosue Negro Other [employer] Other 10-14-2021 10:30-7501OpT2% (BldA) [Mass fraction]97 % Arlene Sruthi Other [facility] Other Encounters Encounter DateEncounter TypeCare ProviderFacilityStart: 04-18-2025 End: 00-44-1690Rhfdyswbc Result EncounterCorey Heike DO Work Phone: noms External Department UnsolicitedStart: 04-18-2025 End: 99-73-5919Sbghitucm Result EncounterCorey Heike DO Work Phone: noms External Department UnsolicitedStart: 03-24-2025 End: 03-42-6216Fpikoi flowsheetCorey Heike DO Work Phone: noms Sg OBGYNStart: 03-24-2025 End: 54-15-0488Oiuxja flowsheetCorey Heike DO Work Phone: noms [facility] OBGYNStart: 03-24-2025 End: 74-26-1007Bezfqn outpatient visit 15 minutesCorey Heike DO Work Phone: noms [place] OBGYNComment on above:Encounter for infertility; PCOS (polycystic ovarian syndrome); Abnormal uterine bleeding (AUB)Start: 03-24-2025 End: 22-28-1242nbypzssafpQLXQO FAZIONot AvailableStart: 11-12-2024 End: 25-75-7352kauqvfnyqkTtxrggyhbUniversity Hospitals [facility] Work Phone: Start: 11-12-2024 End: 75-91-9286Vbpkkke encounter procedureFirbon [facility] Work Phone: Start: 80-11-4374Tkr-patient / [facility] Work Phone: Start: 52-63-8517Rcw-patient / Non-visitF[facility] Professional [employer] Work Phone: Start: 10-24-2024 End: 96-07-1104gfcgllqikzQcepvnoupTwin City Hospital Work Phone: Start: 10-24-2024 End: 30-98-2729Yxmvydv encounter procedureF[facility] Work Phone: Start: 09-05-2024 End: 17-55-8689Luvnst-up encounterDabean Butler DO Work Phone: GastroenterologyStart: 09-03-2024 End: 65-72-5275xoetvdqeoqRUNUX L HYKES JRFacility:[facility] Start: 09-03-2024 End: 34-91-4119Mywfmhaxyu hospital visit by physicianDara Butler DO Work Phone: [facility] SheffieldComment on above:Generalized abdominal pain [R10.84]Start: 08-21-2024 End: 87-58-8466qpufzzpdokZjqhildj Abraham MD Work Phone: Pain ManagementComment on above:Cancel procedureStart: 72-23-3144wulbevcokoJOUHEYKW [facility], Cancer Centertart: 07-24-2024 End: 83-99-0832Bkmhoily ReferredAnalia Dennis APRN Work Phone: [facility] [place] Work Phone: Start: 07-24-2024 End: 92-97-7188ovalkjsrocIpjhgjwd RohrbacherFacility:[facility] Administrationtart: 07-24-2024 End: 98-31-2028Jwfcwpy encounter procedureF[facility] Physician GroupMer[facility] Work Phone: Start: 07-15-2024 End: 87-02-1096Wtjcqblzy encounterNae Ibarra MD Work Phone: RheumatologyComment on above:ResultsStart: 07-15-2024 Non-patient / Non-[facility] Professional Co Work Phone: Start: 07-15-2024 End: 46-93-3402arztcmfezdVTSNVMFO TSAIFacility:[facility] HospitalStart: 07-15-2024 End: 16-78-4244Fslbmla encounter procedureNae Ibarra MD Work Phone: RheumatologyComment on above:Chronic fatigue (Primary Dx); Vitamin B12 deficiency; Vitamin D deficiency; Generalized abdominal pain; Urticaria; Photosensitivity; Chronic bilateral low back pain without sciatica; Cervicalgia; Upper back pain; Long-term use of high-risk medicationStart: 11-49-3518Uro-patient / Non-visit [facility] Physician [facility] Work Phone: Start: 86-72-1069Nou-patient / Non-visitF[facility] Professional Co Work Phone: Start: 89-12-4592Rfk-patient / Non-visitF[facility] Physician [facility] Professional Co Work Phone: Start: 07-08-2024 End: 49-88-4342Zrhbztz encounter procedureF[facility] Physician GroupMercy Health [facility] Work Phone: Start: 07-08-2024 End: 14-51-6273Doijqyuoq Result EncounterCorey Heike DO Work Phone: noms External Department UnsolicitedStart: 07-08-2024 End: 56-41-1873Htcetpvfr Result EncounterCorey Heike DO Work Phone: noms External Department UnsolicitedStart: 07-03-2024 End: 70-29-4263Mnxjqg flowsheetCorey Heike DO Work Phone: noms BCP OBStart: 07-03-2024 End: 50-02-2007Dfcatw flowsheetCorey Heike DO Work Phone: noms BCP OBStart: 07-03-2024 End: 93-77-8944Rmkyhhjgb encounterSquinn Thompson MD Work Phone: Pain ManagementComment on above:AppointmentStart: 07-03-2024 End: 46-15-1235Yfuiod outpatient visit 15 minutesCorey Heike DO Work Phone: noms BCP OBComment on above:Follow-up visit after miscarriageStart: 07-03-2024 End: 86-58-1221gqhvmffopsJPYNH FAZIONot AvailableStart: 07-01-2024 End: 79-33-8683Abnpset encounter procedureElif Rich MD Work Phone: noms SWS DERMComment on above:Neoplasm of unspecified behavior of bone, soft tissue, and skin (Primary Dx)Start: 07-01-2024 End: 27-34-5163Nviyiy flowsCarline Rich MD Work Phone: noms SWS DERMStart: 07-01-2024 End: 92-97-6965Hrjobl Becca Rich MD Work Phone: noms [facility] DERMStart: 07-01-2024 End: 02-99-9736jjrlaoucnqTIWGZ A PETITTINot AvailableStart: 64-86-8438Otc- patient / Non-visitF[facility] Physician GroupLocated Within [facility] Professional Co Work Phone: Start: 03-51-3763Dni-patient / Non-visitFirelands [facility] Work Phone: Start: 47-32-5208Qmh-patient / Non-visitF[facility] Physician GroupLocated Within [facility] Professional Co Work Phone: Start: 06-23-2024 End: 79-31-8558Jirxfufeu encounterTho Huffman MD Work Phone: Internal MedicineComment on above:AppointmentStart: 05-14-2024 End: 46-03-1307Tavvwkrvg encounterTho Huffman MD Work Phone: Ambulatory SurgeryComment on above:Schedule Injection Start: 04-30-2024 End: 65-99-8542myypjdokplOKDUXWHX M KAPLEFacility:[facility] Start: 04-30-2024 End: 46-45-6981Pjzocaw encounter procedurePaula Pretty MD Work Phone: pain ManagementComment on above:Right sided abdominal pain (Primary Dx); Neuralgia and neuritis; Celiac artery compression syndrome (HCC)Start: 04-24-2024 End: 11-70-3392Tjevelbkr encounterIsabelle Menon MD Work Phone: GastroenterologyComment on above:Appointment (No need for OV with Dr. Menon)Start: 04-17-2024 End: 69-77-4875Slyguwweyb hospital visit by physicianKeshawn External FilmEF RAD EXTERNAL FILM VIRTUALComment on above:ArrivedStart: 04-16-2024 End: 59-31-2392Tkbhscmhjt hospital visit by Ranjit Ambriz MD MPH Work Phone: [facility] CenterComment on above:Median arcuate ligament syndrome (CMS-HCC)Median arcuate ligament syndromeStart: 03-26-2024 End: 75-86-3269Ickcvki encounter procedurePaula Pretty MD Work Phone: pain ManagementComment on above:APPOINTMENT CANCELLED (Primary Dx)Start: 03-26-2024 End: 61-39-6140yxswxalggvIXPIAPVM M KAPLEFacility:[facility] Start: 80-01-6714Ctxzveb encounter statusVeterans Health Administrationtart: 03-19-2024 End: 10-71-2022yziwssuefcCP Ana Bolton Work Phone: [facility] Work Phone: Start: 03-19-2024 End: 68-22-9162Lndxmey encounter procedureDO Ana Bolton Work Phone: [facility] Phys[facility] GroupMer[facility] Work Phone: Start: 03-13-2024 End: 08-69-1067ufygxcxrnpJSDLVFHH M KAPLEFacility:[facility] Start: 03-12-2024 End: 18-27-6919srngvzrbojSdexm L Luke ., DO Work Phone: GastroenterologyStart: 03-12-2024 End: 65-73-7506Dvcals-up encounterDadeondreadela Ilene Butler DO Work Phone: GastroenterologyComment on above:Follow UpStart: 03-05-2024 End: 00-60-4858Kgfpom outpatient new 60 minutesWhitney Ambriz MD MPH Work Phone: uh [facility] HospitalComment on above: Epigastric pain (Primary Dx); Median arcuate ligament syndrome (CMS-HCC); Difficulty breathingStart: 02-26-2024 End: 58-15-1425Hugicjv encounter Joceline Braden MD Work Phone: GastroenterologyComment on above:Epigastric pain (Primary Dx)Start: 02-26-2024 End: 07-77-6770panvdfurbwCFTVI K STEVENSFacility:[facility] HospitalStart: 20-72-7418icbtioiydzPMAQT L HYKESFacility:[facility] HospitalStart: 02-11-2024 End: 07-08-8592Lnqtmaxwnz hospital visit by physicianLavonne/Dillan [facility] (I-Stat) Work Phone: RadiologyComment on above:Upper abdominal pain [R10.10]Start: 02-05-2024 End: 65-76-6648Tbfdbj outpatient gonzález 60 minutesDane Merida MD Work Phone: uh [facility] Physician PavilionComment on above:Median arcuate ligament syndrome (CMS-HCC) (Primary Dx)Start: 69-00-5590wvixmdnqchtawanda BUTLERFacility:[facility] HospitalStart: 01-30-2024 End: 08-77-6295Dgwirpfvco hospital visit by physicianDaryl Imaging [facility] 2 Work Phone: RADONECORE [facility] OK[facility]OMA CITY HOSPComment on above:Upper abdominal pain [R10.10]Start: 79-60-4375Snaahshfx encounterGeorge [facility] RADIO MOLE [facility] HOSPComment on above:Radiology NMStart: 83-17-1984ewunjxobabtawanda Menon MD Work Phone: GastroenterologyComment on above:EUSStart: 01-10-2024 End: 68-54-4758Mhvcmb OnlyNot In System Ref ProvProMedica Physicians General SurgeryStart: 01-10-2024 End: 06-17-3253Ihibge follow up visit related to original Melinda Shepherd RAILCAR SWITCHMAN-BLIND HANGER Work Phone: ProTaylor [facility] Physicians General SurgeryComment on above: Status post laparoscopic appendectomy (Primary Dx)Start: 01-01-2024 End: 56-49-3317yoybqkkiaeRewygrf E [facility] Work Phone: Start: 01-01-2024 End: 59-19-2668Vhfjflvy ReferredDO Ana Bolton Work Phone: [facility]-LAB Path Spec [facility] HospStart: 12-28-2023 End: 60-24-5175wjftqlybkjPAYYV L HYADI JRFacility:[facility] Start: 12-28-2023 End: 07-33-5682Vuerqhv encounter procedureDavid L Hykes DO Work Phone: GastroenterologyComment on above:Upper abdominal pain (Primary Dx); Dyspepsia and disorder of function of stomach; DyspepsiaStart: 12-27-2023 End: 43-50-4485sypgtmuiagRHYNG L HYKES JRFacility:[facility] Start: 34-96-0113Obw-patient / Non-visitDO Ana Bolton Work Phone: [facility]am[facility] Physician GroupLocated Within [facility] Professional Co Work Phone: Start: 08-67-6568kjaoqcpnvnZypbk L Hykes DO Work Phone: GastroenterologyComment on above:PainStart: 12-13-2023 RefillDavid L Hykes DO Work Phone: FaAurora Medical Center Manitowoc CountyComment on above: Refill RequestStart: 12-05-2023 End: 59-90-3255hnvlertnahJASOEFE LLOSASHAFacility:[facility] HospitalStart: 12-05-2023 End: 68-10-2483Atfkrji encounter procedureAriella Jonesyd RAILCAR SWITCHMAN.BLIND HANGER Work Phone: General SurgeryComment on above:S/P gastrointestinal surgery, follow-up exam (Primary Dx); S/P laparoscopic cholecystectomyStart: 11-29-2023 End: 15-84-2160vkceackgwbEkjqmbnwxTwin City Hospital Work Phone: Start: 11-29-2023 End: 89-29-6333Voulgqe encounter procedureF[facility]e [facility] Physician GroupGlenn Medical Center Work Phone: Start: 11-21-2023 End: 60-41-0957oivczbncyiVHVMALRF M KAPLEFacility:[facility] HospitalStart: 21-53-4941Ukn-patient / Non-visitF[facility] Professional Co Work Phone: Start: 11-15-2023 End: 28-74-4962Oqzifhbro to [address] Other Phone: Pre AnesthesiaStart: 11-15-2023 End: 59-26-9207Rsrmwvm encounter procedurePacc [address] Other Phone: Pre AnesthesiaComment on above:Pre-op examination (Primary Dx); Palpitations; Organic anxiety syndromeStart: 11-15-2023 End: 40-64-7226Fvkfdchyzevlz examination donePacc [address] Other Phone: [facility] Work Phone: Start: 11-15-2023 End: 69-20-3514jbjtojmbocVBWEAGIKang Mansfieldcility:[facility] Hospitaltart: 90-64-8435Lfonnshrx for other preprocedural examinationNatchaug Hospital Start: 41-41-8752Cbdbdkomi encounterBrianna M Armbrecht PA-C Work Phone: Pre AnesthesiaComment on above:Pre-Op ExamStart: 11-07-2023 End: 53-20-9379tarselawwbINFIUXTQ M KAPLEFacility:[facility] Start: 08-45-8939Kojqjwaxe encounterSedrick Rushing MD Work Phone: CardiologyComment on above:Patient Question (PVCs and Frequent ED visits. )Start: 48-65-0707Lwuhdtnih encounterSedrick Rushing MD Work Phone: CardiologyComment on above:Palpitations; ED pt update Start: 46-00-8444Ljhucjjdp encounterSeema Davis MD Work Phone: General SurgeryComment on above:Cardiac Clearance Start: 10-22-2023 End: 10-06-7071ergqwlnxfbVWGHAG C SMITHFacility:[facility] HospitalStart: 10-22-2023 End: 31-80-9131Herdznq encounter procedureSedrick Rushing MD Work Phone: CardiologyComment on above:Palpitations (Primary Dx); Other supraventricular tachycardia (HCC)Start: 10-19-2023 End: 29-82-8975gxhqyibyhnKPHXKO C SMITHFacility:[facility] HospitalStart: 64-99-7995Fnvtmeylt encounterIsabelle Menon MD Work Phone: GastroenterologyComment on above:Patient UpdateStart: 21-53-3511Ltpnkabvk encounterIsabelle Menon MD Work Phone: FV Provider AdultStart: 01-96-9571soalagaregPDKUKTXJ M KAPLEFacility:[facility] HospitalStart: 09-06-2023 End: 02-15-9751Ckfsiwisff hospital visit by physicianIsabelle Menon MD Work Phone: FaMedical [facility] - ENDOComment on above: Chronic recurrent pancreatitis (HCC) [K86.1]Start: 63-88-1447Byzmcmmyz encounter Large [employer]ops Procedure 15RadiologyComment on above:ScansStart: 06-11-2023 ambulatoryIsabelle Menon MD Work Phone: GastroenterologyComment on above:EUSStart: 06-06-2023 End: 99-89-5044Iyttxne encounter procedureIsabelle Menon MD Work Phone: GastroenterologyComment on above:RUQ pain (Primary Dx); History of pancreatitis; Nausea; Diarrhea, unspecified type; History of Clostridium difficile infectionStart: 06-01-2023 End: 66-24-8715gfquqfqdytNwpphnfw Kaple Other [facility] [employer] Other Start: 75-87-7488Epbafirfg encounterAnalia Ye Primary CareStart: 05-30-2023 End: 37-52-1376bgiiecmexyBKL Jennifer Kaple Work Phone: [facility] Work Phone: Start: 05-30-2023 End: 94-26-8007Huzjtgk encounter procedureDNClaudette Holliday Work Phone: [facility]-Lab [facility] Hospitaltart: 05-24-2023 End: 92-71-1358mlcvlaghlcAmolrtqo Kaple Other Go[facility]park[facility] Quick2LA[facility] Other Start: 08-10-8904Ntkwvcpkx for general adult medical examination without abnormal findingsAnalia PedrazaG [facility] [place] Start: 94-02-2495Jevoery preventive medicine new pt age 18-39yrsAnalia ELIAS [facility] HospitalyStart: 05-22-2023 End: 70-44-5506Ykcoyzj encounter procedureDabean Butler DO Work Phone: GastgroenterologyComment on above:Chronic pancreatitis, unspecified pancreatitis type (HCC) (Primary Dx); Generalized abdominal pain; Irritable bowel syndrome with diarrhea; History of Clostridioides difficile colitisStart: 05-16-2023 End: 44-03-6475hpgzopbqeoRyeugwsl Provider Other [facility] Other Start: 61-64-9363Shjrsnizx encounterOrdering Provider [facility] Medicine [place]kyStart: 69-90-3673Adfjqpzrk encounterDavid L Hykes DO Work Phone: GastroenterologyComment on above:ResultsStart: 33-29-0973Oocrbqstw encounterDavid L Hykes DO Work Phone: GastroenterologyComment on above:ResultsStart: 89-01-2489kdqlxoibhdEODMQ L HYKESFacility:[facility] MountainStar Healthcaretart: 04-13-2023 End: 68-65-9868Djcbrrqnra hospital visit by physicianEj Cerrato (I-Stat/1.5t) Work Phone: RadiologyComment on above:Chronic recurrent pancreatitis (HCC) [K86.1]Start: 66-02-6298Anmzgeefr encounterMarie Moise (Chencho) GeorgeRadiologyComment on above:APPT REMINDER (APPT REMINDER CALL, LEFT MESSAGE REGARDING DIRECTIONS TO OFFICE AND # IN NEED TO CANCEL)Start: 03-27-2023 End: 64-54-5707sfbkylrssxGihy Scovanner Other [employer] Other Start: 16-04-7800Mkbvuhggx encounterRyan ScovannerFPG GastroenterologyStart: 03-23-2023 End: 05-19-1039kmvzctexisBofg Scovanner Other [employer] Other Start: 35-77-5259Pggbzvdfx encounterRyan ScovannerFPG GastroenterologyComment on above:ResultsStart: 03-22-2023 End: 59-35-3764hlzbazxzwmPvbh Scovanner Other [employer] Other Start: 15-73-6637Qiwwadjno encounterNae Ibarra MD Work Phone: RheumatologyComment on above:ResultsStart: 03-21-2023 Telephone encounterDavid L Hykes DO Work Phone: GastroenterologyComment on above:ResultsStart: 03-20-2023 End: 31-51-3094qvfovdebtpOskt Scovanner Other [facility] Other Start: 00-42-0956Rpgxgtoxn encounterRyan ScrossynerFPG GastroenterologyStart: 66-95-0131jsxnakajfuCkjwa L Hykes DO Work Phone: GastgroenterologyComment on above:PancreasStart: 96-44-8920sokqukzyjbOIQVX L HYKESFacility:[facility] HospitalStart: 02-06-2023 End: 76-21-7075Plxosbk encounter procedureDavid L Hykes DO Work Phone: GastgroenterologyComment on above:Chronic pancreatitis, unspecified pancreatitis type (HCC) (Primary Dx); Generalized abdominal pain; Intestinal malabsorption, unspecified typeStart: 93-26-8286tkgojmkztyQyqcmkolfcx AbdelazizFacility:[facility] Administrationtart: 41-00-3857ojyzbhbnei Nae Ibarra MD Work Phone: RheumatologyComment on above:updateStart: 12-01-2022 End: 35-80-1075bxovmuaerpMU DOCTOR MISCFacility:I4Edqtc: 11-22-2022 End: 26-00-7510xjsrlzxtrtYuhs Scovanner Other [facility] Other Start: 39-98-0964Xthutg outpatient new 30 minutesRyan ScovannerFPG GastroenterologyStart: 11-08-2022 End: 47-29-7827dsypcdvflaKtneggg Ditty Other [facility] Quick[facility] Other Start: 95-75-6797Guwopefej encounterCameron DittyFPG GastroenterologyStart: 11-04-2022 End: 40-18-8868jgpqzimxnkQJWTCLA DITTYFacility:V1Zljwj: 11-03-2022 End: 40-13-3560vaydllyvwfYJ DOCTOR MISCFacility:G8Tmymj: 10-31-2022 End: 07-43-5113zdrravdwqgRR DOCTOR MISCFacility:S2Gpiyv: 10-23-2022 End: 99-66-4483jarndttytsGW DOCTOR MISCFacility:X2Fdvjb: 10-20-2022 End: 75-19-9082evlkaadhonOH DOCTOR MISCFacility:U1Bchke: 10-19-2022 End: 49-98-9067vnrmxzmhjfTA EDWARD HEMEYER .Facility:Y6Pvdrh: 10-18-2022 End: 12-24-0783ngesqxmrtwJW EDWARD HEMEYER .Facility:M2Yzjuh: 10-08-2022 End: 39-79-4029vxitkbhokzZG EDWARD HEMEYER .Facility:Q7Rwvgz: 10-05-2022 End: 39-68-0659xylqvkgrhtMH EDWARD HEMEYER .Facility:Y9Gkjlj: 10-02-2022 End: 04-08-6325ivwwmodkucCK EDWARD HEMEYER .Facility:N9Kiodu: 09-28-2022 End: 61-07-7087iwqqoulhznAK DOCTOR MISCFacility:R8Zcqoy: 09-26-2022 End: 70-40-5546pazjkbbekuRX EDWARD HEMEYER .Facility:Y6Wafuy: 09-22-2022 End: 03-32-2982ickqbupsjgCY EDWARD HEMEYER .Facility:H2Ykgew: 09-12-2022 End: 33-72-9857dingnsvhvnSA DOCTOR MISCFacility:H9Rjqdf: 08-30-2022 End: 55-24-8446juyjpyztxwZQ DOCTOR MISCFacility:V5Yewcv: 08-24-2022 End: 03-69-9200gpymhpvpxpMW EDWARD HEMEYER .Facility:M5Jnflw: 08-22-2022 End: 98-27-7572qvsdbmhxftRC EDWARD HEMEYER .Facility:H6Ywcnp: 08-22-2022 End: 69-60-9895qrwkwomntaAM EDWARD HEMEYER .Facility:B8Lnvpv: 08-21-2022 End: 41-11-8242xcyslxfxxoHL EDWARD HEMEYER .Facility:H9Mjtgy: 08-14-2022 End: 95-31-1531zvuxyipazhPA JEREMIAH HEIKE .Facility:J3Onfow: 07-28-2022 End: 78-18-0500kbnwrmyxrrRoaruhq Ditty Other [employer] Other Start: 02-46-1918Jauzrfgym encounterCameron DittyFPG GastroenterologyStart: 07-27-2022 End: 23-32-6303xbdhpedjdlVA EDWARD HEMEYER .Facility:J2Ldnjd: 07-13-2022 End: 32-60-7710infxhchiwrRB EDWARD HEMEYER .Facility:I1Gkeey: 05-11-2022 End: 66-22-4066qynrumunycBW DOCTOR MISCFacility:R1Xunfy: 05-04-2022 End: 56-45-8630vtflrqshzvRQ DOCTOR MISCFacility:L4Djjzj: 05-01-2022 End: 89-92-8258lqtyqqulwsWL DOCTOR MISCFacility:V4Lnfeh: 04-27-2022 End: 35-52-0754eesgltwulhAuuongi Ditty Other [place] [employer] Other Start: 86-33-3207Lpcexdm encounter procedureCameron DittyFPG GastroenterologyStart: 04-17-2022 End: 70-23-6653bhhupvfxpgMZ EDWARD HEMEYER .Facility:K8Vmcnd: 03-17-2022 End: 34-48-4040inzfmybwcjVK DOCTOR MISCFacility:T5Mctzd: 84-06-1319vmtuyomqsiLSI PETROVAFacility:[facility]ITALtart: 03-15-2022 End: 87-84-2491Gtcnmljared [place] [address] My Diallo MD Work Phone: General and Gastrointestinal Surgery Outpatient [facility] on above:Diarrhea, unspecified type (Primary Dx)Start: 02-25-2022 End: 44-96-3996huactydsvvXUTFIRG HOYFacility:I2Jsych: 02-01-2022 End: 89-80-4215sryzgwtyqpIW DOCTOR MISCFacility:E8Cifxz: 01-19-2022 End: 93-84-5824bxmmksbthtKgurfvk Ditty Other [facility] Other Start: 59-08-4620Dzaqtvfif encounterCameron DittyFPG GastroenterologyStart: 01-14-2022 End: 87-76-0743ujektdlctbQDWSBYG HOYFacility:M0Ybsvi: 00-12-7967vdqrqeybui REFERRED SELFFacility:[facility]ITALtart: 10-27-2021 End: 68-20-0938tungolgjwiKonnwev Ditty Other [facility] Other Start: 24-94-2846Iuyidkqdl encounterCameron DittyFPG GastroenterologyStart: 10-17-2021 End: 22-46-2706vnggawotlzSckjltc Ditty Other noSe[facility] Other Start: 63-18-0680Jfbbypnlq encounterCameron DittyFPG GastroenterologyStart: 68-86-0452ndskbbjiqyMLA PETROVAFacility:[facility]tart: 10-06-2021 End: 35-27-4353jpzcwvizypQehsqfy Ditty Other [employer] Other Start: 47-31-1364Qkpqximwn encounterCameron DittyFPG GastroenterologyStart: 09-30-2021 End: 08-96-0528siystmksdeBbmmokp Ditty Other [place] [employer] Other Start: 20-20-8512Pxrlarrgw encounterCamerojovana ParikhFPG GastroenterologyStart: 09-27-2021 End: 46-17-6509mtcvgrdbgtNtrutjy Bretty Other [place] [employer] Other Start: 62-87-7032YNBM visit new patientCameron Kati [facility] GastroenterologyStart: 79-09-1045Eozpap outpatient visit 15 minutesStephanie SruthiFPG Urgent Care ClydeStart: 12-02-2020 End: 28-55-5394Qhlyykejbw hospital visit by physicianCt [facility] Radiology Ct ScanComment on above:Family history of ischemic heart disease and other diseases of the circulatory system [Z82.49] Procedures DateProcedureProcedure DetailPerforming ClinicianStart: 82-17-5647WFA FOLLICLE STIMULATING HORMONECorey Heike DO Work Phone: Start: 56-77-0089HTK LUTEINIZING HORMONECorey Heike DO Work Phone: Start: 94-19-1232HBB THYROXINE (T4) FREECorey Heike DO Work Phone: Start: 35-43-3366QHS HEMOGLOBIN Y3YVotuj Heike DO Work Phone: Start: 50-89-5468Swyvvwnqads flx dx w/collj spec when pfrmdDavid L Hykes DO Work Phone: Start: 64-46-8681XGD PREG QUANT HCGCorey Heike DO Work Phone: Start: 82-98-8428TWJD / NAIL BIOPSYEmlisset Rich MD Work Phone: Start: 04-17-2024 End: 32-99-5637Ylate Interpretation of outside studyAtrium Health Radiology Contrast ProviderStart: 35-79-2192Ehcbzoduogmzjwqcutjagmsbgi transoral diagnosticWhitney Ambriz MD MPH Work Phone: Start: 88-71-5433Xtcox iv surg pathology gross&microscopic examWhitney Ambriz MD MPH Work Phone: Start: 58-18-0269Ckidv test visual color cmprsn Lauri Batista MD Work Phone: Start: 74-87-5050NVBHH OXIMETRY, Rashid Batista MD Work Phone: [phone]: 20-37-4541CDJJW OXIMETRY, Irwin Batista MD Work Phone: [phone]: 44-00-8602QVWAD MARK-TATIANA CONTAINER PERFORMABLEDadeondreadela Ilene Butler DO Work Phone: Start: 60-98-2888QWXQS ECOFIX CONTAINER PERFORMABLE Dara Butler DO Work Phone: [phone]: 14-07-1169Ouu agent det nucleic acid clostridium amp probeDavid Ilene Butler DO Work Phone: [phone]: 19-39-0958GZA EXTRA TUBESDavid Ilene Butler DO Work Phone: [phone]: 34-07-6724FH UPPER GI SINGLE CONTRASTDadeondred Ilene Butler DO Work Phone: Start: 77-62-1145Wsfiuvo emptying imaging studyDadeondreadela Ilene Butler DO Work Phone: [phone]: 44-29-6329Eqalr i surg pathology gross examination onlyNot In System Ref ProvStart: 29-35-9768Lrgketsjixh rig transoral hypopharynx crv Nicole Menon MD Work Phone: start: 01-36-9705Oyi abdomen w/o & w/contrast material Dara Ilene Finkadi DO Work Phone: Start: 49-28-3515Tk angiography head w/contrast/noncontrastBarbronit Naqvi DO Work Phone: Start: 12-00-6859Bx angiography neck w/contrast/noncontrastBarbara Donya DO Work Phone: History of cholecystectomyS/P laparoscopic cholecystectomyAudreymissy Mccoy [employer] Work Phone: Plan of Treatment DateCare ActivityDetailAuthorStart: 22-03-8488Nrxqwb Vaccines (1 of 2)Zoster Vaccines (1 of 2)[facility]: 07-21-2025 End: 52-80-1045Rpelfoi encounter xofcjtsrn64/30/2025 7:00 AM EST Office Visit Rheumatology [address] [facility] [address] Nae Ibarra MD [address] [facility] [place] [address] 1 year follow upRheumatologyComment on above:1 year follow up Start: 03-24-2025 End: 43-17-5159Fbhwjhm encounter /02/2025 1:50 PM EDT Office Visit [facility] [place] [facility] [address] [place] [address] Jeremiah Burroughs DO [address] [place], [place] [address] ArrivedNOMS Sg OBGYNComment on above:ArrivedStart: 24-28-9997DKSRR-19 Vaccine ( season)COVID-19 Vaccine ( season)[facility]: 03-23-2025 Influenza vaccinationInfluenza Vaccine (#1)[facility] HealthcareStart: 02-06-2025 End: 10-18-3095Bzolicg encounter ybzyaymot27/18/2025 9:00 AM EDT Office Visit Gastroenterology [address] [place] [address] Dara Butler Jr., DO [address] [place] [address] Stomach pain/diarrheaGastroenterology Comment on above:Stomach pain/diarrheaStart: 28-91-8248Lkfdtc Adult Physical Yearly Adult PhysicalCommunity Memorial HospitalStart: 44-02-2847Olmch BMI ScreeningAdult BMI ScreeningRegional Medical Center SystemStart: 08-09-4524Qwjeeot ScreeningTobacco ScreeningProWooster Community Hospital SystemStart: 01-09-2025 End: 61-85-4878Girpqym encounter seknqqbqp30/20/2025 9:00 AM EDT Office Visit Gastroenterology [address] [place] [address] Dara Butler Jr., DO [address] [phone] Stomach pain/diarrheaGastroenterology Comment on above:Stomach pain/diarrheaStart: 09-17-2024 End: 40-70-6810Kwqibcp encounter yycdhozbn27/26/2025 12:30 PM EST Appointment Ambulatory Surgery [address] [place] [address] [place] [address] [place] [address] Ambulatory SurgeryStart: 08-27-2024 End: 08-18-3356Nysgfleal to same day surgery bcbvty4908/27/2024 8:55 AM EST - 08/27/2024 9:32 AM EST Surgery Procedures [address] [place] [address] Tho Huffman MD [address] [facility] [address] BLOCK CELIAC PLEXUS WITH C-ARMProcedures Comment on above:BLOCK CELIAC PLEXUS WITH C-ARMStart: 08-27-2024 End: 25-80-2387Bqat anes celiac plexus w/wo radiologic monitrngBLOCK CELIAC PLEXUS WITH C-ARM Right sided abdominal pain Celiac artery compression syndrome (HCC) Neuralgia and neuritis 08/27/2024 8:55 AM [facility]: 42-32-1223Zfladklhag hospital visit by hhxhqroaw70/05/2025 8:55 AM [facility] Hospital Encounter Procedures [address] [facility] [place] [address] Tho Huffman MD [address] [facility] [address] Right sided abdominal pain [R10.9], Celiac artery compression syndrome (HCC) [I77.4], Neuralgiaand neuritis [M79.2]ProceduresComment on above:Right sided abdominal pain [R10.9], Celiac artery compression syndrome (HCC) [I77.4], Neuralgia andneuritis [M79.2]Start: 08-18-2024 End: 24-48-3097Nlykuat encounter /27/2025 1:40 PM EST Office Visit Rheumatology [address] [facility] [address] [facility] [place] [address] Nae Ibarra MD [address] [facility] [address] for fatigue fu OV.RheumatologyComment on above:for fatigue fu OV.Start: 82-47-6831Efshoyjv identified in Urine by CultureUrine Culture [facility] Administrationtart: 28-37-3311Rzpni cultureVeterans Health Administrationtart: 07-15-2024 End: 705564-lreffswbxsjxhm D3 [Mass/volume] in Serum or PlasmaDayton Va Medical Center Work Phone: Comment on above:Expected: 07/15/2024 (Approximate), Expires: 10/14/2024Start: 07-04-2024 End: 40-92-7214Uqctsdbcc to same day surgery xqlymi7007/04/2024 7:30 AM EST - 07/04/2024 8:08 AM [facility] Surgery Ambulatory Surgery [address] [facility] [place] [address] Tho Huffman MD [address] [facility] [address] BLOCK CELIAC PLEXUS WITH C-ARMAmbulatory SurgeryComment on above:BLOCK CELIAC PLEXUS WITH C-ARM Start: 07-04-2024 End: 81-29-5932Cdvr anes celiac plexus w/wo radiologic monitrngBLOCK CELIAC PLEXUS WITH C-ARM Right sided abdominal pain Celiac artery compression syndrome (HCC) Neuralgia and neuritis 07/04/2024 7:30 AM [facility] [place]AINStart: 30-67-7338Ocmzrksuja hospital visit by bbpixjmyf67/13/2024 7:30 AM [facility] Hospital Encounter Ambulatory Surgery [address] [facility] [address] [facility] [place] [address] Tho Huffman MD [address] [facility], [place] [phone] Right sided abdominal pain [R10.9], Celiac artery compression syndrome (HCC)[I77.4], Neuralgia and neuritis [M79.2] Ambulatory SurgeryComment on above:Right sided abdominal pain [R10.9], Celiac artery compression syndrome (HCC) [I77.4], Neuralgia andneuritis [M79.2]Start: 07-03-2024 End: 06-13-4514Odrhyzn encounter procedureNOMS BCP OBComment on above:Arrived Start: 07-01-2024 End: 96-79-4563Fdrpgtj encounter dwemzcekg40/10/2024 2:05 PM EST Office Visit [facility] [address] [place] [address] Elif Rich MD [address] [place] [address] ArrivedNOMS SWS DERMComment on above:ArrivedStart: 06-30-2024 End: 89-62-2769Dutzxpc encounter /09/2024 10:30 AM EST Office Visit Pain Management [address] [place] [address] Paula Pretty MD [address] [place] [address] follow upPain ManagementComment on above: follow upStart: 06-13-2024 End: 96-13-2488Zrclpup encounter ovrndwhor58/22/2024 1:20 PM EST Office Visit [facility]astroenterology [address] [facility] [place] [address] Dara Butler Jr., DO [address] [facility] [place] [place] [address] JN -SOONER APPT FOR FOLLOW UP GastroenterologyComment on above:JN -SOONER APPT FOR FOLLOW UPStart: 05-07-2024 End: 16-11-8288Xdqcrwn encounter zikjpxefd75/16/2024 11:45 AM EDT Office Visit Gastroenterology [address] [place] [address] [place] [address] [place] [address] F/U OVGastroenterologyComment on above:F/U OVStart: 04-30-2024 End: 64-58-5610Bncukji encounter procedurePain ManagementComment on above:Dr [place] claudio referralStart: 04-16-2024 End: 51-69-0937Rnfzqvl encounter wviljmonb92/25/2024 9:00 AM EDT Appointment [facility] [address] [place] [address] Whitney Ambriz MD MPH [address] [facility] [place], [place] [phone] [facility]: 03-26-2024 End: 47-41-0853Bibihup encounter tedlollso45/04/2024 11:00 AM EDT Office Visit Pain Management [address] [phone] Paula Pretty MD [address] [place] [address] [place] [address] Dr [place] claudio referralPain Management Comment on above:Dr [place] claudio referralStart: 15-20-1263Ukvvv-19 Vaccine ( season)Covid-19 Vaccine ()[facility]Start: 78-34-8103Isbzy-19 Vaccine ()Covid-19 Vaccine ()[facility] ClinicStart: 55-70-0829Hkeehozyt vaccinationMarietta Memorial Hospital Start: 03-18-2024 End: 79-61-7408Kqaotbl encounter wuvxhnkme51/27/2024 1:00 PM EDT Office Visit Gastroenterology [address] [address] Bola Braden MD [address] [place] [address] Pancreatitis second opinionGastroenterologyComment on above: Pancreatitis second opinionStart: 03-14-2024 End: 53-22-1767Uifzbjl encounter osozhadvg31/23/2024 10:00 AM EDT Office Visit Gastroenterology [address] [place], [place] [phone] Dara Butler Jr., DO [address] [place] [address] follow upoGastroenterologyComment on above:follow upoStart: 02-11-2024 End: 14-95-3644Nboeurq encounter uohdetcqy24/22/2024 9:30 AM EDT Appointment Radiology [address] [place] [address] : XR UPPER GI SINGLE CONTRAST RadiologyComment on above:: XR UPPER GI SINGLE CONTRASTStart: 02-01-2024 End: 22-60-6580Espkfdw encounter yygyibkyi26/12/2024 3:00 PM EDT Office Visit Gastroenterology [address] [place] [address] Dara Butler Jr., DO [address] [place] [address] JN -SOONER APPT FOR FOLLOW UP GastroenterologyComment on above:JN -SOONER APPT FOR FOLLOW UPStart: 01-30-2024 End: 58-97-9510Eqcwklq encounter luhjydwxp27/10/2024 8:30 AM EDT Appointment [facility] [address] [place] [address] Gastric Emptying Study Weight 115 / Patient not Diabetic / Order in EPIC // DX: Upper abdominal pain [R10.10][facility] HOSPComment on above:Gastric Emptying Study Weight 115 / Patient not Diabetic / Order in EPIC // DX: Upper abdominal pain [R10.10]Start: 01-09-2024 End: 80-17-2556Kpijgzm encounter glpkbruxp90/19/2024 8:30 AM EDT Appointment [facility] [address] [facility] [place] [address] Weight 115 / Patient not Diabetic / Order in EPIC // DX: Upper abdominal pain [R10.10][facility] HOSPComment on above:Weight 115 / Patient not Diabetic / Order in EPIC // DX: Upper abdominal pain [R10.10]Start: 12-28-2023 End: 62-58-9138Atrpweq encounter yxboqvkvx49/07/2024 3:00 PM EDT Office Visit Gastroenterology [address] [place] [address] Dara Butler Jr., [address] [place] [address] abdominal pain- add per GastroenterologyComment on above:abdominal pain- add per JNStart: 12-27-2023 End: 01-79-2250bhjfsiojfn55/06/2024 10:00 AM EDT Results Only [facility] [address] [place] [address] [place] [address] [facility]ynMyMichigan Medical Center Alma LaboratoryStart: 12-26-2023 End: 25-99-8163Tfjgyck [Enzymatic activity/volume] in Serum or PlasmaAMYLASE Lab Routine Generalized abdominal pain History of acute pancreatitis Expected: 12/26/2023, Expires: 03/26/2024leveland ClinicComment on above:Expected: 12/26/2023, Expires: 03/26/2024Start: 12-26-2023 End: 03-26-2024 reactive protein [Mass/volume] in Serum or PlasmaC-REACTIVE PROTEIN Lab Routine Generalized abdominal pain History of acute pancreatitis Expected: 12/26/2023, Expires: 03/26/2024leveland ClinicComment on above: Expected: 12/26/2023, Expires: 03/26/2024Start: 12-26-2023 End: 55-19-9284EWM W Auto Differential panel - BloodCOMPLETE BLOOD COUNT AND DIFFERENTIAL Lab Routine Generalized abdominal pain History of acute pancre atitis Expected: 12/26/2023, Expires: 03/26/2024[facility] ClinicComment on above:Expected: 12/26/2023, Expires: 03/26/2024Start: 12-26-2023 End: 38-34-7689Wkmecitdwxlko metabolic 2000 panel - Serum or PlasmaCOMPREHENSIVE METABOLIC PANEL Lab Routine Generalized abdominal pain History of acute pancreatitis Expected: 12/26/2023, Expires: 03/26/2024[facility] Work Phone: Comment on above:Expected: 12/26/2023, Expires: 03/26/2024Start: 12-26-2023 End: 66-09-1001Kdseygqgoso sedimentation rateSEDIMENTATION RATE, WESTERGREN Lab Routine Generalized abdominal pain History of acute pancreatitisExpected: 12/26/2023, Expires: 03/26/2024[facility] ClinicComment on above:Expected: 12/26/2023, Expires: 03/26/2024Start: 12-26-2023 End: 45-39-6733Vmelvn [Enzymatic activity/volume] in Serum or PlasmaLIPASE Lab Routine Generalized abdominal pain History of acute pancreatitis Expected: 12/26/2023, Expires: 03/26/2024[facility] ClinicComment on above:Expected: 12/26/2023, Expires: 03/26/2024Start: 12-10-2023 End: 25-07-9119Zjdydex encounter ighbekgyr84/20/2024 12:20 PM EDT Office Visit Rheumatology [address] [facility] [place] [address] Nae Ibarra MD [address] [facility] [place] [address] for fatigue fu OV.RheumatologyComment on above:for fatigue fu OV.Start: 11-21-2023 End: 15-59-3569Nneqfvxml to same day surgery nphjjb7511/21/2023 3:15 PM EDT - 11/21/2023 5:45 PM EDT Surgery [facility] [address] [place], [place] [phone] [place] [address] [place] [phone] LAPAROSCOPIC CHOLECYSTECTOMYFaMedical Center of Western Massachusetts Operating RoomComment on above:LAPAROSCOPIC CHOLECYSTECTOMYStart: 11-21-2023 End: 10-81-5380Xqfuueeoyov surg cholecystectomyLAPAROSCOPIC CHOLECYSTECTOMY Cholecystitis 11/21/2023 3:15 PM EDTFV ORStart: 43-30-8135Xjpznqmech hospital visit by bsljmjzpi01/01/2024 3:15 PM EDT Hospital Encounter [facility] [address] [place] [address] [place] [address] [place] [address] Cholecystitis [K81.9][facility] Operating RoomComment on above: Cholecystitis [K81.9]Start: 38-88-9981Aauqcbvyiu Health ScreeningBehavioral Health ScreeningCleMetroHealth Parma Medical Centertart: 82-22-6872Kdmwmbkzzw AssessmentDepression AssessmentCleMetroHealth Parma Medical Centertart: 01-77-9364Nvqnf-19 Vaccine ( season)Covid-19 Vaccine ( season)[facility]: 03-23-2023 Influenza vaccinationUK Healthcaretart: 02-06-2023 End: 17-93-7300Xtaugbt [Enzymatic activity/volume] in Serum or PlasmaAMYLASE BLD Lab Routine Generalized abdominal pain Chronic pancreatitis, unspecified pancreatitis type (HCC) Intestinal malabsorption, unspecified type Expected: 02/06/2023, Expires: 04/08/2023[facility] Work Phone: Comment on above:Expected: 02/06/2023, Expires: 04/08/2023Start: 02-06-2023 End: 63-83-8443TDKAQZ SCREEN WITH REFLEXCELIAC SCREEN WITH REFLEX Lab Routine Generalized abdominal pain Chronic pancreatitis, unspecified pancreatitis type (HCC) Intestinal malabsorption, unspecified type Expected: 02/06/2023, Expires: 04/08/2023[facility] Work Phone: Comment on above:Expected: 02/06/2023, Expires: 04/08/2023Start: 02-06-2023 End: 77-80-6997Esxvyfnxgrofk metabolic 2000 panel - Serum or PlasmaCOMP METABOLIC PANEL Lab Routine Generalized abdominal pain Chronic pancreatitis, unspecified pancreatitis type (HCC) Intestinal malabsorption, unspecified type Expected: 02/06/2023, Expires: 04/08/2023[facility] Work Phone: Comment on above:Expected: 02/06/2023, Expires: 04/08/2023Start: 02-06-2023 End: 65-44-6803WEQ SUBCLASS 1,2,3,4IGG SUBCLASS 1,2,3,4 Lab Routine Generalized abdominal pain Chronic pancreatitis, unspecified pancreatitis type (HCC) Intestinal malabsorption, unspecified type Expected: 02/06/2023, Expires: 04/08/2023[facility] Work Phone: Comment on above:Expected: 02/06/2023, Expires: 04/08/2023Start: 02-06-2023 End: 08-84-4636Nnjopw [Enzymatic activity/volume] in Serum or PlasmaLIPASE BLD Lab Routine Generalized abdominal pain Chronic pancreatitis, unspecified pancreatitis type (HCC) Intestinal malabsorption, unspecified type Expected: 02/06/2023, Expires: 04/08/2023[facility] Work Phone: Commgqv on above:Expected: 02/06/2023, Expires: 04/08/2023Start: 02-06-2023 End: 18-12-5408Eytrk 1996 panel - Serum or PlasmaLIPID PANEL BASIC Lab Routine Generalized abdominal pain Chronic pancreatitis, unspecified pancreatitis type (HCC) Intestinal malabsorption, unspecified type Expected: 02/06/2023, Expires: 04/08/2023[facility] Work Phone: Comment on above:Expected: 02/06/2023, Expires: 04/08/2023Start: 02-06-2023 End: 42-42-5314Tlhmimz Ab [Presence] in Serum by ImmunoassayANA BLOOD Lab Routine Generalized abdominal pain Chronic pancreatitis, unspecified pancreatitis type (HCC) Intestinal malabsorption, unspecified type Expected: 02/06/2023, Expires: 04/08/2023[facility] Work Phone: Comment on above:Expected: 02/06/2023, Expires: 04/08/2023Start: 49-76-1908GNARBNONLP ASSESSMENTDEPRESSION ASSESSMENTUK Healthcaretart: 07-20-2022 End: 10-47-9398Ztrsxmr encounter anizmwakv81/29/2022 Office Visit Gastroenterology Irena Diallo MD [address] [place] [address] General and Gastrointestinal Surgery [facility]: 04-36-0629Dsknlugjr vaccinationINFLUENZA VACCINE (#1)[facility]: 03-15-2022 End: 03-15-2023 DIFFICILE BY PCR (CLOSTRIDIUM DIFFICILE TOXIN)C DIFFICILE BY PCR (CLOSTRIDIUM DIFFICILE TOXIN) Microbiology Routine Diarrhea, unspecified type Expected: 03/15/2022, Expires: 03/15/2023OSMarion HospitalComment on above:Expected: 03/15/2022, Expires: 03/15/2023Start: 03-15-2022 End: 88-32-6580KSWOUVWYA ENTERIC PANEL, STOOLMOLECULAR ENTERIC PANEL, STOOL Fluids Routine Diarrhea, unspecified type Expected: 03/15/2022, Expires: 03/15/2023[facility] HealthComment on above:Expected: 03/15/2022, Expires: 03/15/2023Start: 06-87-9904QGKVY-19 VACCINE (3 - Booster for Pfizer series)COVID-19 VACCINE (3 - Booster for Pfizer series)[facility] Start: 21-85-0657OAXJM-19 VACCINE (3 - Booster for Pfizer series)COVID-19 VACCINE (3 - Booster for Pfizer series)[facility]: 91-27-0624GPJBW-19 VACCINE (3 - Pfizer series)COVID-19 VACCINE (3 - Pfizer series)[facility] Start: 82-50-8199MFlJ,Tdap and Td Vaccines (7 - Td or Tdap)DTaP,Tdap and Td Vaccines (7 - Td or Tdap)[facility] SystemStart: 39-98-1449SFfU/Tdap/Td Vaccines (7 - Td or Tdap)DTaP/Tdap/Td Vaccines (7 - Td or Tdap)[facility] HospitalStart: 28-95-7540Uvren microalbumin profileDTaP,Tdap,Td Vaccine (7 - Td or Tdap)[facility]: 29-11-3957LDZ TESTINGPAP TESTING [facility]: 76-52-2533Npjrvlalb for malignant neoplasm of cervixBerger Hospitaltart: 94-78-3208Lsdjc diphtheria, tetanus and acellular pertussis (DTaP) vaccinationTDAP (ADULT)[facility]: 77-01-5071Grmsq microalbumin profileUK Healthcaretart: 84-19-1655Rfgwdrwqip ScreeningDepression ScreeningUK Healthcaretart: 28-30-8770Xmhurfvhv C screeningHepatitis C ScreeningCommunity Memorial HospitalStgillett: 2016 HIV SCREENINGHIV SCREENINGUK Healthcaretart: 03-98-7597BWP screeningHIV ScreeningUK Healthcaretart: 24-84-3956Rfzkmyo vaccinationTETANUSOSACMC Healthcare Systemtart: 63-83-4479Bopycwxdjdtwj B Vaccine: Consider Based On Risk (1 of 2 - Patient Seeks Protection)Meningococcal B Vaccine: Consider Based On Risk (1 of 2 - Patient Seeks Protection)[facility]: 2014 MENINGOCOCCAL B: Consider based on risk (1 of 2 - Patient Seeks Protection) MENINGOCOCCAL B: Consider based on risk (1 of 2 - Patient Seeks Protection) [facility]: 48-22-9995Tbkpxrcpt for Chlamydia trachomatisCHLAMYDIA SCREENOSU [facility] Avontart: 26-49-1503ZKO screeningHIV SCREENING DISCUSSIONOSU [facility] Avontart: 62-06-2386HKWE TO ADULT TRANSITION ANNUAL ASSESSMENTPEDS TO ADULT TRANSITION ANNUAL ASSESSMENTMarietta Memorial Hospital Start: 65-20-8331CUX Vaccine (3 - 2-dose series)HPV Vaccine (3 - 2-dose series) [facility]: 83-79-3214SPH Vaccines (3 - 2-dose series)HPV Vaccines (3 - 2-dose series)[facility]: 97-14-7110Eyvpurhrdp ScreeningDepression ScreeningFormerly [facility] Countytart: 92-77-7754QHWG TO ADULT TRANSITION INITIAL DISCUSSIONPEDS TO ADULT TRANSITION INITIAL DISCUSSION [facility]: 28-16-0988Efbrggpbhum for human papillomavirusHPV VACCINE ADOL (1 - 2-dose series)[facility]art: 04-77-2385QZXCWZIMMEBBM B: Consider based on risk (1 of 2 - Risk Bexsero 2-dose series)MENINGOCOCCAL B: Consider based on risk (1 of 2 - Risk Bexsero 2-dose series)[facility] Start: 21-43-6634PPF VACCINE (1 - 2-dose series)HPV VACCINE (1 - 2-dose series) [facility]: 22-16-5729ZVVDLRSXK SCREENGONORRHEA SCREENOSU [facility]art: 04-27-4130FPRPSIIEC B (1 of 3 - 3-dose series)HEPATITIS B (1 of 3 - 3-dose series)[facility]: 94-66-2292Ohmdnabzi B Vaccine (1 of 3 - 3-dose series)Hepatitis B Vaccine (1 of 3 - 3-dose series)[facility]: 59-02-6473Npwhkjcwx C antibody, confirmatory testHEPATITIS C VIRUS SCREENINGOSU [facility] Avontart: 10-72-2574NIV screeningHIV Screening [facility]: 52-87-4321Zlmzn panelLipid Panel [facility]: 80-73-4565Vrqfcq Adult PhysicalYearly Adult [facility] WestBlood type and Indirect antibody screen panel - BloodType And Screen Lab Timed As needed (Lab) for 1 Occurrences starting 04/16/2024[facility] Service Area Work Phone: Comment on above:As needed (Lab) for 1 Occurrences starting 4CBC W Auto Differential panel - BloodCBC and differential Lab Routine PCOS (polycystic ovarian syndrome) Ordered: 03/24/2025[facility] Comment on above:Ordered: 03/24/2025 End: 09-73-7148Gz angio abd&plvis cntrst mtrl w/wo cntrst imgCTA ABD/PEL W IVCON Radiology Routine Generalized abdominal pain RUQ pain Chronic recurrent pancreatitis (HCC) Diarrhea, unspecified type 1 Occurrences starting 06/13/2023 until 07/12/2024[facility] Work Phone: comment on above:1 Occurrences starting 06/13/2023 until 07/12/2024ermatopathology examDermatopathology exam Pathology and Cytology Timed Neoplasm of unspecified behavior of bone, soft tissue, and skin Release Upon Ordering for 1 Occurrences starting 07/01/2024[facility] Work Phone: comment on above:Release Upon Ordering for 1 Occurrences starting 07/01/2024 End: 00-84-5969YsavfntmlzvbxpyoCODS Cardiology Routine Other supraventricular tachycardia (HCC) Palpitations 1 Occurrences starting 10/22/2023 until 10/21/2024[facility] Work Phone: Comment on above:1 Occurrences starting 10/22/2023 until 10/21/2024Follicle stimulating hormoneFollicle stimulating hormone Lab Routine PCOS (polycystic ovarian syndrome) Ordered: 03/24/2025[facility] Comment on above:Ordered: 03/24/2025hCG, quantitative, pregnancyhCG, quantitative, Lab Routine PCOS (polycystic ovarian syndrome) Ordered: 03/24/2025[facility] Work Phone: comment on above:Ordered: 03/24/2025Hemoglobin A1c/Hemoglobin.total in BloodHemoglobin A1c Lab Routine Abnormal uterine bleeding (AUB) Ordered: 03/24/2025[facility] HealthcareComment on above:Ordered: 03/24/2025Luteinizing hormoneLuteinizing hormone Lab Routine PCOS (polycystic ovarian syndrome) Ordered: 03/24/2025[facility] HealthcareComment on above:Ordered: 03/24/2025 End: 93-75-9459Gidmcfpt SedationModerate Sedation Procedures Routine Once for 1 Occurrences starting 04/16/2024 until 04/16/2024[facility] Work Phone: Comment on above:Once for 1 Occurrences starting 04/16/2024 until 04/16/2024 End: 43-18-8848Aep abdomen w/o & w/contrast materialMRI ABDOMEN WO/W IVCON Radiology Routine Chronic recurrent pancreatitis (HCC) 1 Occurrences starting 03/16/2023 until 04/14/2024[facility] Work Phone: Comment on above:1 Occurrences starting 03/16/2023 until 04/14/2024 End: 39-37-6004NF Stomach Views for gastric emptying solid phase W radionuclide PONM GASTRIC EMPTYING SOLID Radiology Routine Upper abdominal pain Dyspepsia and disorder of functionof stomach Dyspepsia 1 Occurrences starting 12/28/2023 until 01/26/2025[facility] Hospital[facility] above:1 Occurrences starting 12/28/2023 until 01/26/2025OUTSIDE VENDOR CARDIAC OUTPATIENT EXTENDED RHYTHM RECORDING (WITHOUT TELEMETRY)OUTSIDE VENDOR CARDIAC OUTPATIENT EXTENDED RHYTHM RECORDING (WITHOUT TELEMETRY) Holter Routine Other supraventricular tachycardia (HCC) Palpitations Ordered: 10/22/2023[facility] Work Phone: Comment on above:Ordered: 10/22/2023 End: 28-48-2257IO Gastrointestinal tract upper Views W barium contrast POXR UPPER GI SINGLE CONTRAST Radiology Routine Upper abdominal pain Dyspepsia and disorder of function of stomach 1 Occurrences starting 12/28/2023 until 01/26/2025[facility] Work Phone: Comment on above:1 Occurrences starting 12/28/2023 until 01/26/2025Study Interpretation of outside [facility] Service AreaSurgical pathology studySurgical Pathology Exam Pathology and Cytology Timed Median arcuate ligament syndrome (CMS-HCC) Release Upon Ordering for 1 Occurrences starting 04/16/2024[facility] Service Area Work Phone: comment on above:Release Upon Ordering for 1 Occurrences starting 04/16/2024Thyrotropin [Units/volume] in Serum or PlasmaTSH Lab Routine PCOS (polycystic ovarian syndrome) Ordered: 03/24/2025[facility] HealthcareComment on above:Ordered: 03/24/2025Thyroxine (T4) free [Mass/volume] in Serum or PlasmaT4, free Lab Routine PCOS (polycystic ovarian syndrome) Ordered: 03/24/2025[facility] HealthcareComment on above:Ordered: 03/24/2025Tissue Pathology [facility]Day[facility] Work Phone: Comment on above:Release Upon Ordering for 1 Occurrences starting 09/03/2024, 1 [facility] Immunizations Immunization DateImmunizationNotesCare FiacrrxuZnohrzpr33-36-2691xbrtj papilloma virus vaccine, quadrivalentElif Rich MD Work Phone: [facility] HospitalVwmtllfjna74-45-2641qshlnguhi virus vaccineElif Rich MD Work Phone: [phone]-[facility] HospitalDqzwkrfxdc76-30-0117SLF, unspecified formulation Dane Merida MD Work Phone: [facility] Work Phone: [phone] papilloma virus vaccine, quadrivalent Elif Rich MD Work Phone: [facility] HospitalYnfscrzxiq88-74-6267yuyqzbjiinmbs polysaccharide (groups A, C, Y and W-135) diphtheria toxoid conjugate vaccine (MCV4P)Elif Rich MD Work Phone: [facility] HospitalNjpvgzjrpn54-80-0137svuwyhp toxoid, reduced diphtheria toxoid, and acellular pertussis vaccine, adsorbedElif Rich MD Work Phone: [facility] HospitalMuqxebomtg55-95-5215dtsiuxtdw virus vaccineElif Rich MD Work Phone: [phone] [place], [place] [address]Inmsxfhokk63-16-1191srhcqhkyhl, tetanus toxoids and acellular pertussis vaccineElif Rich MD Work Phone: [phone] [place], [place] [address]Kyaivistbq61-56-4883kqxlsxt, mumps and rubella virus vaccineElif Rich MD Work Phone: [phone] [place], [place] [address]Hppspmzfbe72-15-2689zzezaogvow vaccine, inactivatedElif Rich MD Work Phone: [phone] [place], [place] [address]Xtpqhvknxj43-89-4591duqllsiofj, tetanus toxoids and acellular pertussis vaccine, unspecified formulationElif Rich MD Work Phone: [phone] [place], [place] [address]Jxodgllmfq76-59-1492hlvfyiuzirve conjugate vaccine, 7 valentEjustine Rich MD Work Phone: [phone] [place], [place] [address]Pnbrvukmis41-52-5741kyitdteekoa influenzae type b vaccine, conjugate unspecified formulationElif Rich MD Work Phone: [phone] [place], [place] [address]Xspwtcrtmh26-35-4971ifuwowr, mumps and rubella virus vaccineElif Rich MD Work Phone: [phone] [place], [place] [address]Iqzklrihjj07-66-5480olasectnmr vaccine, unspecified formulationElif Rich MD Work Phone: [phone] [place], [place] [address]Erivthrexs50-00-8236noibenovx virus vaccineElif Rich MD Work Phone: [phone] [place], [place] [address]Jkhjdpkzdm41-87-8947sqbualzxhr, tetanus toxoids and acellular pertussis vaccine, unspecified formulationElif Rich MD Work Phone: [phone] [place], [place] [address]Rgqxibnril34-86-6311djigiawzzyw influenzae type b vaccine, conjugate unspecified formulationElif Rich MD Work Phone: [phone] [place], [place] [address]Mlezyuwbat74-15-7633xryjkiidt B vaccine, pediatric or pediatric/adolescent dosageElif Rich MD Work Phone: [phone] [place], [place] [address]Nbazgtiwyk59-54-0923enuafihcih vaccine, unspecified formulationElif Rich MD Work Phone: [phone] [place], [place] [address]Aruwfwcnir76-57-0782vkbiiohvcg, tetanus toxoids and acellular pertussis vaccine, unspecified formulationElif Rich MD Work Phone: [phone] [place], [place] [address]Ntnkahenmb67-71-5028efoynhylumg influenzae type b vaccine, conjugate unspecified formulationElif Rich MD Work Phone: [phone] [place], [place] [address]Mujlvvzfuu71-12-1812cyubznuuay vaccine, unspecified formulationElif Rich MD Work Phone: [phone] [place], [place] [address]Pgkmahlyqp11-72-0856ciluwoghgk, tetanus toxoids and acellular pertussis vaccine, unspecified formulationElif Rich MD Work Phone: [phone] [place], [place] [address]Verrwyyjry60-17-3326fqfmmxyjvfe influenzae type b vaccine, conjugate unspecified formulationElif Rich MD Work Phone: [phone] [place], [place] [address]Jkhsrnwaii61-00-9109ijrlhxhjl B vaccine, pediatric or pediatric/adolescent dosageElif Rich MD Work Phone: [phone] [place], [place] [address]Plzxdtdmoe97-01-9562vnsphztpso vaccine, unspecified formulationElif Rich MD Work Phone: [phone])[facility] [place], [place] [address]Xuuakorjfi26-16-3057fzlcgwigf B vaccine, pediatric or pediatric/adolescent dosageElif Rich MD Work Phone: [phone] [place] [address] Payers DatePayer CategoryPayerPolicy [id number]-[id number] Cross Blue [id number] County General Hospital Managed CareSYCAM[facility] [place] 1.2.840.512332.1.13.647.2.7.9.260001.290146.99163-50-0025BnmyUnion County General Hospital [id number] 2.160.9.883498.32191420-19-0863Qyacrsa 1.2.840.318804.1.13.172.2.7.3.684[id number] 2..3.317487.60845436-82-4600Dfgrjwz Health InsuranceUNITED HEALTHCARE 1.2840.103924.1.13.693.2.7.9.497168.454269.82614-69-8152Wipvryg Health [id number] 2.0.1.242909.3.579.2.647 [id number] 2.1.808250.3.579.2.32891-08-2329Aaofgjw [id number] 2.0.1.737777.3.579.[id number] 2.0.1.473303.3.579.2.96889-67-1113Ffaxfkr1382585 2.0.1.536460.3.57[id number] 2.0.1.196829.3.579.2.60307-15-7725Shpqdeo5272320 2.16.840.1.132619.3.579.2.26840-15-3514Cywdnqn2379985 2.16840.1.478846.3.579.2.11991-00-3831Byfedpf1948033 2.16840.1.847677.3.579.2.08065-78-8944Ccatziy8523018 2.16840.1.094524.3.579.2.96456-03-0027Lfqstct4399379 2.16840.1.156559.3.579.2.71010-67-4315Ncpbgmb5760980 2.840.1.229124.3.579.2.54140-10-9234Kqoiocz3635722 2.840.1.835646.3.579.2.88633-23-3897Ejviumh7289798 2.840.1.753394.3.579.2.45887-54-7962Ukarcnf5766832 2.840.1.567955.3.579.2.25866-58-0863Pwdbtli0824875 2.840.1.955352.3.579.2.99035-93-9196Mcvrvmp9498184 2.840.1.468646.3.579.2.30644-62-0444Ezxoqox9771511 2.840.1.779289.3.579.2.06343-78-1762Njfxoei3493582 2.16840.1.234213.3.579.2.11928-71-1058Lefzaxj3089494 2.16840.1.522343.3.579.2.24339-62-4159Ivesboe0577165 2.16840.1.017207.3.579.2.58469-34-7127Xjpjlfn1117508 2.16840.1.540456.3.579.2.07906-46-1934Zoyhcgu5284321 2.16840.1.442170.3.579.2.01172-62-2691Ormtidc8762804 2.16840.1.134965.3.579.2.46712-65-7935Utfgfju8988448 2.840.1.488190.3.579.2.20007-50-6019Qywxanl7712330 2.840.1.691796.3.579.2.60853-45-4996Xuvmdss9516778 2.840.1.405961.3.579.2.05661-42-2871Fdkpwxz0249456 2.840.1.829662.3.579.2.64302-01-9134Hmmphru9950207 2.0.1.951083.3.579.2.67035-47-9137Tccqfqu1913086 2.840.1.813713.3.579.2.45650-31-1319Vfaxliw3961425 2.840.1.045525.3.579.2.96093-80-0034Pkdwncm5313032 2.840.1.802455.3.579.2.35762-72-6217Yyvnpip1647102 2.840.1.188180.3.579.2.33345-14-2666Kgrureu1064537 2.840.1.827153.3.579.2.36050-09-8677Zhajott3673664 2.840.1.942255.3.579.2.46430-80-0846Xwuxstg39859070 2.840.1.679302.3.579.2.058202-72-3270Fgonxyu5301074 2.840.1.657004.3.579.2.740633-39-1840Bylxrbg5262184 2..840.1.573093.3.579.2.6436Snmmfqs30816837 2..840.1.666827.3.579.2.531 Cjfiebc14563197 2..840.1.845045.3.579.2.531 Social History DateTypeDetailFacilityUnknown if ever smokedNort Quick2LAUNCH Other Start: 02-06-2023 End: 07-44-1015Yuo Assigned At BirthUK Healthcaretart: 03-15-2022 End: 68-69-2259Mzwfebo smoking status NHISNever smoked tobaccoOSU [facility], Avontart: 03-15-2022 End: 45-25-3316Tzkpsfg use and exposureSmokeless tobacco non-userOSU [facility] Avontart: 03-15-2022 End: 98-92-6124Ndfyznz intakeCurrent drinker of alcohol (finding)[facility] CenterStart: 53-71-4615Aoshpzw SDOH Alcohol CommentsocialOSACMC Healthcare Systemtart: 28-91-8142Unw Assigned At BirthNot on fileOSACMC Healthcare Systemtart: 14-37-4365Kqkhkdt smoking status NHISEx-smokerMarietta Memorial HospitalHistory of tobacco useCurrent smokerUK Healthcaretart: 13-83-1745Rqx Assigned At BirthFemaleCohiohealth sout[facility] medical center ClinicStart: 02-06-2023 End: 92-78-5017Mcrwrea of Social functionUK Healthcaretart: 98-56-1453Bijmm Depression Screening Lpnlitijmz2Oassjsxpa ClinicStart: 45-79-2733Swqfcy identity Identifies as female gender (finding)[facility]: 10-26-9467Ljcsox orientationHeterosexual (finding)[facility] HospitalTobast. [facility] smoking status NHIS Tobacco smoking consumption unknownUK Healthcaretart: 06-06-2023 End: 61-76-2508Nfczabs intakeEx-drinker (finding)[facility]: 82-05-7805Qnupfbe Commentsocially- rareUK Healthcaretart: 82-33-4327Lezbdhs Comment1-2 drinks/monthly or lessNOMS HealthcareHow often to you have a drink containing alcohol?NeverUnOhio State University Wexner Medical Center Work Phone: Start: 01-26-2024 End: 38-19-6502Bhmftfbi to SARS-CoV-2 (event)Not sureCommunity Memorial HospitalStart: 07-24-2024 End: 27-01-9943HdvDduwnw (finding)[facility] NorthNEGATED: Highlighted rowMercy Health St. Vincent Medical Center Functional Status YeneCliudtwgtiTxzaqfQgmittvg54-11-2680Gmaousmqpa [facility] Work Phone: [phone]gtlys - suicide severity rating scale screener - recent [C-SSRS][facility] Work Phone: [phone]tcfarid statusUnOhio State University Wexner Medical Center Work Phone: [facility] Mental Status HnqpLipmtilgclEaohzaTlqidnhm03-12-4440Kubbeolkg function findingNegative 04/16/2024 8:18 AM EDT Jyoti Hodges, VIRGILIO NegativeCommunity Memorial Hospital Work Phone: Clinical Notes 12-02-2020 to 03-24-2025 Note Date & EvenCmypIujhqafe93-85-8072 History of Present illness Narrative* Valery Vazquez [...] abdominal pain 05/02/2022 Menstrual disorder 01/24/2023 Miscarriage ([facility]) 01/24/2023 Nausea 05/02/2022 Pain due to genitourinary [...] due to intrauterine contraceptive device (IUD) Pancreatitis ([facility]) 2014 Urine test negative HISTORY PAST MEDICAL [...] ovary Irregular menses IUD check up Miscarriage ([facility]) Pain due to intrauterine contraceptive device (IUD) Pancreatitis ([facility]) 2014 Dr Owen/ Hospitalization history: 2019, [facility] [...] nursing note reviewed. Exam conducted with a rehabilitation services counselor present. Vitals: Estimated body mass index is [...] of: Jeremiah Burroughs DO documented in this encounterPike County Memorial HospitalDzntwmtgyj44-91-6603 History and physical note * Dara Butler [...] 03, 2024 TIME: 10:18 AM PAGER/CONTACT #: [facility]02-12-[facility] History and physical note* Dara Butler Jr., [...] 10:18 AM PAGER/CONTACT #: documented in this encounterMarietta Memorial Hospital02-12-2025 Nurse Note* Srea Garner RN - 09/03/2024 10:14 AM EST PRE OP LEARNING ASSESSMENT PROCEDURE/SURGERY: GI PROCEDURES: Colonoscopy READINESS TO LEARN COGNITIVE ABILITY: Alert and oriented MOTIVATION TO LEARN: Eager FAMILY SUPPORT: None - Unavailable/disinterested PATIENT LEARNS BEST BY: Individual Instruction FACTORS AFFECTING LEARNING: None PHYSICAL LIMITATIONS AFFECTING LEARNING: None Pt declined follow up phone. Electronically Signed By: Sera Garner RN In Department: [facility] ENDOSCOPY [facility]02-12-2025 Nurse Note* Sera Garner RN - 09/03/2024 10:14 AM EST PRE OP LEARNING ASSESSMENT PROCEDURE/SURGERY: GI PROCEDURES: Colonoscopy READINESS TO LEARN COGNITIVE ABILITY: Alert and oriented MOTIVATION TO LEARN: Eager FAMILY SUPPORT: None - Unavailable/disinterested PATIENT LEARNS BEST BY: Individual Instruction FACTORS AFFECTING LEARNING: None PHYSICAL LIMITATIONS AFFECTING LEARNING: None Pt declined follow up phone. Electronically Signed By: Sera Garner RN In Department: [facility] ENDOSCOPY [facility] documented in this encounterBrittany Ville [address]97-31-2025 Telephone encounter Note * Telephone Encounter - Shu Wilkins - 08/22/2024 11:18 AM EST Case message sent to [facility] to cancel with Dr. Huffman 08/27 per patient request. [facility]01-31-2025 Miscellaneous Notes* Telephone Encounter - Shu Wilkins - 08/22/2024 11:18 AM EST Case message sent to [facility] to cancel with Dr. Huffman 08/27 per patient request. documented in this encounterMarietta Memorial Hospital01-06-2025 Note Attestation signed by Paula Huggins MD [...] be an additional personal documentation from me. [facility] Gastroenterology Follow-Up Patient Visit CHIEF COMPLAINT [...] endometriosis related. She is travelling soon to [place] next 15 days and was mentioning that she was having some UTI symptoms andrequested some medication just in case she starting the antibiotics for C diff and we instructed her that in case of confirming the UTI and starting the treatment to communicate with us to update (more content not included)... [facility]12-26-2024 Telephone encounter Note* Telephone Encounter - Ham Thompson LPN - 07/17/2024 10:41 AM EST Left message that below message viewable on patient's MC. Requested return call if unable to view message. [facility]12-26-2024 Miscellaneous Notes* Telephone Encounter - Ham Thompson [...] labs. Take over the counter vitamin D 7920-2855 International Units daily with food. Happy to further review and discuss at follow up visit. Thank you. 07/15/24 normal vitamin D 39.8, vitamin b12-841; documented in this encounterMarietta Memorial Hospital12-24-2024 Telephone encounter Note * Telephone Encounter - Nae Ibarra MD - 07/15/2024 6:41 PM EST Please Call patient if MyChart note not read to review results/released to My Chart if tests completed at [facility]: normal labs. Take over the counter vitamin D 7212-8959 International Units daily with food. Happy to further review and discuss at follow up visit. Thank you. 07/15/24 normal vitamin D 39.8, vitamin b12-841; [facility]12-24-2024 History of Present illness Narrative* Nae Ibarra [...] ccp<15, irena ifa, hepatitis panel, quantiferon tb; Catechist and always walking for exercise. NO swelling. [...] GI for C.diff & pancreatitis care, see FILES SUPERVISOR, start prn heat/ice/otc arthritis creams, low impact [...] Dactylitis: no H/o precedent/frequent infection(s): as above Enthesopathy/[place]'s/heel/plantar tenderness: no Skin thickening, psoriasis, photosensitivity, purpura: [...] hormones; G1, P0, 1miscarriage 10/2021 Colonoscopy: outside [facility] 2020 zach rawls Bone Density:no History of Fractures:no Height Loss: no IMMUNIZATION HX: Immunization History Administered Date(s) Administered COVID-19 original vaccine, age 12+ yr, monovalent ([employer] - PURPLE TOP) 03/16/2021 04/06/2021 Pneumovax no Flu shot no Tetanus yes Last PPD: unsure PAST MEDICAL HISTORY: PMH headaches, s/p wisdom teeth extraction, s/p mole back removed PAST SURGICAL HISTORY: s/p wisdom teeth extraction, s/p mole back removed FAMILY HISTORY: mother-healthy;father- osteoarthritis;sister- sick frequently; 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 NO swelling. [...] and recurrent infection care, avoid triggers, see FILES SUPERVISOR, start prn heat/ice/otc arthritis creams, low impact [...] touching your toes, sit-ups, using row machine half-way pain recommendations per primary care provider/pain clinic [...] video & audio (virtual) or phone or zmnk-ml-gcut patient care, completing clinical documentation, obtaining and/or [...] Workers' Compensation? No Do you need an boxing and pressing supervisor? No [facility] PROMIS CAT V2.0-PHYSICAL FUNCTION-28 DAYS [...] body? Without ANY difficulty Bend down to machine operator picker clothing from the floor? Without ANY [...] understand my health Agree documented in this encounterMarietta Memorial Hospital12-24-2024 NoteHNO ID: [id number] Author: NAE IBARRA MD Service: ? Author [...] ccp<15, irena ifa, hepatitis panel, quantiferon tb; Catechist and always walking for exercise. NO swelling. [...] GI for C.diff AND pancreatitis care, see FILES SUPERVISOR, start prn heat/ice/otc arthritis creams, low impact [...] dyspnea, nausea, vomiting, night (more content not included)...[facility]12-24-[facility] Instructions * Patient Instructions* Nae Ibarra [...] touching your toes, sit-ups, using row machine half-way pain recommendations per primary care provider/pain clinic [...] Abs Lymph 1.00 - 4.00 k/uL 2.06 Fentress% % 8.1 Abs Fentress <0.87 k/uL 0.42 Eosin% % 4.3 Abs [...] hepatitis panel, quantiferon tb; documented in this encounterMarietta Memorial Hospital12-17-2024 Evaluation note* Diagnosis Onset Date Resolution Status Admit Date Diarrhea acuteDecember 2023 2:08pm [facility] Work Phone: 1(896) 298-500512-17-2024 Evaluation note* Diagnosis Onset Date Resolution Status Admit Date Diarrhea acuteDecember 2023 2:08pmDysuriaacuteJanuary 2024 11:33am [facility] Work Phone: [phone] 265-726412-12-2024 History of Present illness Narrative* Valery Vazquez, SALES AND SERVICE TECHNICIAN - 07/03/2024 11:40 AM EST Reason for [...] due to intrauterine contraceptive device (IUD) ([facility]) ([facility]) Pancreatitis 2014 Urine test negative HISTORY [...] due to intrauterine contraceptive device (IUD) ([facility]) ([facility]) Pancreatitis 2014 Dr Owen/ Hospitalization history: [...] nursing note reviewed. Exam conducted with a rehabilitation services counselor present. Vitals: Estimated body mass index is [...] of: Jeremiah Burroughs DO documented in this encounterPike County Memorial HospitalMjakkewqnv60-78-7042 Telephone encounter Note* Telephone Encounter - Jorge Oropeza - 07/03/2024 9:20 AM EST BLOCK CELIAC PLEXUS WITH C-ARM needs rescheduled. Please reach out to her to reschedule this. [facility]12-12-2024 Miscellaneous Notes* Telephone Encounter - Jorge Oropeza - 07/03/2024 9:20 AM EST BLOCK CELIAC PLEXUS WITH C-ARM needs rescheduled. Please reach out to her to reschedule this. documented in this encounterMarietta Memorial Hospital12-10-2024 History of Present illness Narrative* Elif Rich [...] Visit: pending biopsy results documented in this encounterPike County Memorial HospitalBngsvxwjsa61-67-9531 Telephone encounter Note* Telephone Encounter - Shu Wilkins - 06/23/2024 4:53 PM EST Case message sent to surgery pool to cancel with Dr. Huffman 07/04 per patient request. [facility]12-02-2024 Miscellaneous Notes* Telephone Encounter - Shu Wilkins - 06/23/2024 4:53 PM EST Case message sent to surgery pool to cancel with Dr. Huffman 07/04 per patient request. * Telephone Encounter - Bonny Joyner - 06/23/2024 10:36 AM EST PT called asking to cancel their procedure scheduled on 07/04/2024. Please review and advise. Thank you! documented in this encounterMarietta Memorial Hospital12-02-2024 Telephone encounter Note * Telephone Encounter - Bonny Joyner - 06/23/2024 10:36 AM EST PT called asking to cancel their procedure scheduled on 07/04/2024. Please review and advise. Thank you! [facility]10-23-2024 Telephone encounter Note* Telephone Encounter - Shu Wilkins - 05/14/2024 1:38 PM EDT diagnostic celiac plexus blockade CHIOMA ALONZO [id number] DESMOND HUFFMAN 07/04 -THINNERS -DM Patient was made aware that the ASC will call the day prior to scheduled procedure between the hours of 12 and 4 pm to advise patient of arrival time the day of procedure. Patient was advised that they will require a hydraulic lift driver on the day of their procedure, and procedure will be cancelled if they arrive without a responsible adult to transport them home from the procedure. Patient advised that all medication management instructions prior to procedure will need addressed by clinical staff. Patient expresses understanding with no further questions or concerns at this time. [facility]10-23-2024 Miscellaneous Notes* Telephone Encounter - Shu Wilkins - 05/14/2024 1:38 PM EDT diagnostic celiac plexus blockade CHIOMA ALONZO [id number] DESMOND HUFFMAN 07/04 -THINNERS -DM Patient was made aware that the ASC will call the day prior to scheduled procedure between the hours of 12 and 4 pm to advise patient of arrival time the day of procedure. Patient was advised that they will require a hydraulic lift driver on the day of their procedure, and procedure will be cancelled if they arrive without a responsible adult to transport them home from the procedure. Patient advised that all medication management instructions prior to procedure will need addressed by clinical staff. Patient expresses understanding with no further questions or concerns at this time. documented in this encounterMarietta Memorial Hospital10-23-2024 Telephone encounter Note * Telephone Encounter - Shu Wilkins - 05/14/2024 1:36 PM EDT OPENED IN ERROR [facility]10-23-2024 Miscellaneous Notes* Telephone Encounter - Shu Wilkins - 05/14/2024 1:36 PM EDT OPENED IN ERROR documented in this encounterMarietta [facility] Hospital10-09-2024 NoteHNO ID: [id number] Author: PAULA PRETTY MD Service: ? Author [...] than the standard meal, (more content not included)...[facility]10-09-2024 History of Present illness Narrative* Paula [...] which lowers the sensitivity of the study. Meat Loiner: PSCB Transcribe Date/Time: Jan 30 2024 2:09P [...] any questions regarding this interpretation, please call [phone]. If you are unable to reach us at the number above, please feel free to contact [facility] at [phone]. Results-Findings * * *Final Report* * * DATE OF EXAM: Jul 05 2023 11:20AM [facility] 0311 - CTA ABD/PELV W [...] fluid collection. Bones/Soft Tissues: No significant finding. Bliss Press Operator (topogram) images: No additional findings. Result History CTA ABD/PEL W IVCON (Order #[id number]) on 07/05/2023 - Order Result History R [...] bentyl prn 3 times/week. Last colonoscopy in [place] and normal. No response to creon Fecal [...] which included: *preparing to see the patient *ioct-ah-vmjc patient care *completing clinical documentation *obtaining and/or [...] MD April 30, 2024 documented in this encounterMarietta [facility] Hospital10-03-2024 Telephone encounter Note * Telephone Encounter - Gisela Ponce RN - 04/24/2024 2:53 PM EDT Pt of Dr. Butler. Pt is scheduled with Dr. Menon for f/u OV 05/07/2024 (made on 12/12/2023). No need for f/u OV with Dr. Menon. Continue f/u with Dr. Butler as well as Dr. Ambriz ([facility]). Attempted to call pt, no answer. Left detailed voice msg that OV with be cancelled. Instructed to call back with any questions. Gisela Ponce RN [facility] Work Phone: 1(707) 623-631010-03-2024 Miscellaneous Notes* Telephone Encounter - Gisela Ponce RN - 04/24/2024 2:53 PM EDT Pt of Dr. Butler. Pt is scheduled with Dr. Menon for f/u OV 05/07/2024 (made on 12/12/2023). No need for f/u OV with Dr. Menon. Continue f/u with Dr. Butler as well as Dr. Ambriz ([facility]). Attempted to call pt, no answer. Left detailed voice msg that OV with be cancelled. Instructed to call back with any questions. Gisela Ponce RN documented in this encounterMarietta Memorial Hospital09-25-2024 Hospital Discharge instructions* Discharge Instructions* Kenny Batista [...] ofhaving your procedure, call the [facility] to be advised whether a visit to [...] inflamed, or looks infected. documented in this [facility] Work Phone: 1(973) 749-628709-04-2024 NoteHNO ID: [id number] Author: PAULA PRETTY MD Service: ? Author Type: Anesthesiologist Type: Progress Notes Filed: 03/26/2024 12:27 Note Text: power outage in building appt rescheduled [facility]09[facility]04[facility] History of Present illness Narrative* Paula Pretty MD - 03/26/2024 10:55 AM EDT power outage in building appt rescheduled Paula Pretty MD documented in this encounterMarietta Memorial Hospital08-21-2024 Telephone encounter Note * Telephone Encounter - Yvrose Martinez RN - 03/12/2024 11:46 AM EDT Call placed to patient to relay below message, patient verbalized understanding. Order for c.diff placed Dara Butler Jr., DO [facility]08-21-2024 Miscellaneous Notes* Telephone Encounter - Yvrose Martinez [...] like callback with recommendations/order documented in this encounterMarietta Memorial Hospital08-21-2024 Telephone encounter Note * Telephone Encounter - [...] advise, patient would like callback with recommendations/order [facility]08-14-[facility] History of Present illness Narrative* Whitney Ambriz [...] do notcorrelate with eating. Last colonoscopy in [place] and normal. Sometimes feels like can't take [...] with her after her block. GES at [facility] 01/30/24: RESULT: Solid study demonstrates: - 70% gastric retention at 1 hour (normal range, 37-90%), - 47% retention at 2 hours (normal range, 30-60%), and - 4% retention at 4 hours (normal range, 0-10%). CT Angio abdomen pelvis 07/05/[address] [facility] [address] Menon: IMPRESSION: Likely physiologic extrinsic compression [...] limits. Heptobiliary Scan 11/2022: Diagnostic Colonoscopy 07/2022 [facility]: Impression: Unremarkable colon examination. No ulceration, no [...] Types: Marijuana MEDICATIONS: Prior to Admission Medications: [facility] ALLERGIES: No Known Allergies REVIEW OF SYSTEMS: [...] Director of Bariatric & Minimally Invasive Surgery [address] [address] T: [phone] F: [phone] Sita Santos RN [place] Nurse Cold Meat Chef, Medical Reception Patient Nursing Contact T: [phone] F: [phone] Urmila Baker LPN Coordinator T: [phone] F: [phone] documented in this encounterCommunity [facility] Work Phone: 1(411) 673-448008-14-2024 Instructions* Patient Instructions* Whitney Ambriz MD MPH - 03/05/2024 2:15 PM EDT PLAN: I will do an endoscopy I would like get pics from the last couple of CT scans. Get the injection. Let's put all of this together and see where we are. Dr. Whitney Ambriz M.D., MPH Director of Bariatric & Minimally Invasive Surgery [place] [address] T: [phone] F: [phone] Sita Santos RN [place] Nurse Cold Meat Chef, Medical Reception Patient Nursing Contact T: [phone] F: [phone] Urmila Baker LPN Coordinator T: [phone] F: [phone] documented in this encounterCommunity [facility] Hospital Work Phone: 1(155) 677-468108-06-2024 History of Present illness Narrative* Bola Braden MD - 02/26/2024 3:30 PM EDT New Patient/Consult REASON FOR VISIT Chioma Alonzo is a 23 year old female who is scheduled for a consult at the request of Dara Bulter DO. CHIEF COMPLAINT Pancreatitis, 2nd opinion My [...] which included preparing to see the patient, [id number] patient care, completing clinical documentation, obtaining and/or reviewing separately obtained history, performing a medically appropriate examination, counseling and educating the pat ient/family/caregiver, and independently interpreting results (not separately reported). Bola Braden MD February 26, 2024 * Bola Braden MD - 02/26/2024 3:21 PM EDT error documented in this encounterMarietta Memorial Hospital08-06-2024 NoteHNO ID: [id number] Author: BOLA BRADEN MD Service: ? Author [...] Systems Gastroenterology (Submi (more content not included)... [facility]08-06-2024 NoteHNO ID: [id number] Author: BOLA BRADEN MD Service: ? Author Type: Physician Type: Progress Notes Filed: 02/26/2024 18:47 Note Text: errorPromedica Memorial Hospital08-06-2024 Nurse Note* Eva Gray MA - 02/26/2024 3:18 PM EDT What is the reason for your visit today? Consult Who is your referring physician? None Are you having poor oral intake? NO Have you had unintentional weight loss of 15 lbs/7 Kg in the last 3-6 months? NO Bowels: diarrhea or regular Wound: None Temperature: No Drains: No [facility]08-06-20[facility] Nurse Note* Eva Gray MA - 02/26/2024 3:18 PM EDT What is the reason for your visit today? Consult Who is your referring physician? None Are you having poor oral intake? NO Have you had unintentional weight loss of 15 lbs/7 Kg in the last 3-6 months? NO Bowels: diarrhea or regular Wound: None Temperature: No Drains: No documented in this encounterMarietta Memorial Hospital07-22-2024 History of Present illness Narrative* Wayne Templeton [...] (Walker, Cane, Wheelchair, Crutches, etc.)? [facility] GENDER DATA: Female. status: : No status: NO. PATIENT RELEVANT IMPLANT DATA REVIEWED: Not Applicable PATIENT PRESENTS WITH AN IMPLANTABLE OR ATTACHED CIVIL DRAFTSMAN: No RADIOLOGY DEPARTMENT: General X-ray: Exam(s) Completed: GI/ Procedure(s): Upper GI with barium contrast PERIPHERAL IV DATA: Not applicable SIGNED BY: RT Tabitha(R) February 11, 2024 9:44 AM documented in this encounterMarietta Memorial Hospital07-22-2024 NoteHNO ID: [id number] Author: WAYNE TEMPLETON RT(R) Service: ? Author [...] PATIENT PRESENTS WITH AN IMPLANTABLE OR ATTACHED CIVIL DRAFTSMAN: No RADIOLOGY DEPARTMENT: General X-ray: Exam(s) Completed: GI/ Procedure(s): Upper GI with barium contrast PERIPHERAL IV DATA: Not applicable SIGNED BY: RT Tabitha(R) February 11, 2024 9:44 [facility]07-16-2024 History of Present illness Narrative* Dane [...] her after her block. documented in this [facility] Work Phone: 1(723) 266-560507-10-2024 History of Present illness Narrative* Vitor Harp [...] PATIENT PRESENTS WITH AN IMPLANTABLE OR ATTACHED CIVIL DRAFTSMAN: No CREATININE: Creatinine Date Value Ref Range [...] 826 PATIENT DISCHARGED TO: Ambulatory patient, left [place] department area. A Diagnostic radioactive procedure has taken place, with no further precautions necessary other than routine body substance precautions. More information regarding radiation safety can be found usingthis link: [email or web address] 20Diagnostic%20Nuclear%20Medicine%20Procedures.pdf SIGNATURE: MARTÍN De La Rosa PATIENT NAME: Chioma Alonzo DATE: January 30, 2024 TIME: 10:38 AM PAGER/CONTACT #: documented in this encounterMarietta Memorial Hospital07-10-2024 NoteHNO ID: [id number] Author: VITOR HARP CNMT Service: ? Author Type: Molding Plasterer Type: Progress Notes Filed: 01/30/2024 10:40 Note [...] PATIENT PRESENTS WITH AN IMPLANTABLE OR ATTACHED CIVIL DRAFTSMAN: No CREATININE: Creatinine Date Value Ref Range [...] [address] PERFORMED: No IV SITE: [place] only - not applicable, oral or physician administered agents given to patient POST EXAM PIV STATUS: Not applicable PROCEDURE TYPE: NM GET: 1.1 mCi Tc99m SULFUR COLLOID was administered orally via 4 oz eggbeaters and 4 ounces of water orally. ADMINISTRATION TIME: 826 PATIENT DISCHARGED TO: Ambulatory patient, left [place] department area. A Diagnostic radioactive procedure has taken place, with no further precautions necessary other than routine body substance precautions. More information regarding radiation safety can be found using this link: [email or web address] 20Diagnostic%20Nuclear%20Medicine%20Procedures.pdf SIGNATURE: MARTÍN De La Rosa PATIENT NAME: Chioma Alonzo DATE: January 30, 2024 TIME: 10:38 AM PAGER/CONTACT #:[phone] Telephone encounter Note* Telephone Encounter - Vitor Harp CNMT - 01/29/2024 1:15 PM EDT SPOKE WITH PT TO CONFIRM APT TO AND EXPLAIN THE EXAM AND ANY PREP. [facility]07-09-[facility]24 Miscellaneous Notes* Telephone Encounter - Vitor Harp CNMT - 01/29/2024 1:15 PM EDT SPOKE WITH PT TO CONFIRM APT TO AND EXPLAIN THE EXAM AND ANY PREP. documented in this encounterMarietta Memorial Hospital06-20-2024 History of Present illness Narrative* Mckenzie Shepherd [...] Status post laparoscopic appendectomy [Z90.49] AMANDO BARON [facility] General Surgery [place] This note was created with the assistance of a speech recognition program. While intending to generate a timely document that accurately reflects the content of the visit, no guarantee can be provided that every grammatical or spelling mistake has been or will be identified or corrected. Thank you for your understanding. AMANDO Baron 01/16/24 1213 documented in this encounterFirelands [facility]06-07-2024 Instructions* Patient Instructions* Dara Butler Jr., - 12/28/2023 3:15 PM EDT Check gastric emptying study Check Upper GI series Start amitriptyline Start pantoprazole Stop Carafate May use Levbid as needed documented in this encounterMarietta Memorial Hospital06-07-2024 History of Present illness Narrative* Dara Butler [...] an issue, start amitriptyline. Consider referral to [facility] if symptoms fail to improve. [...] last colonoscopy was 8 months ago in [place]. Start amitriptyline Keep appt with Dr. Menon [...] divisum. 12/01/22 HIDA scan was done at [facility]: Normal study EF 69% US: 10/31/22: [...] with 350 mL of normal saline. 08/02/22 [facility] Gastroenterology Chioma Alonzo is a 21 y.o. [...] Lymph 1.00 - 4.00 k/uL 2.43 2.06 Fentress% % 8.4 8.1 Abs Fentress <0.87 k/uL 0.47 0.42 Eosin% % 3.4 [...] SOLID Dara Butler Jr. documented in this encounterMarietta Memorial Hospital06-07-2024 NoteHNO ID: [id number] Author: DARA BUTLER JR, DO Service: ? [...] an issue, start amitriptyline. Consider referral to [facility] if symptoms fail to improve. [...] last colonoscopy was 8 months ago in [place]. Start amitriptyline Keep appt with Dr. Menon [...] divisum. 12/01/22 HIDA scan was done at [facility]: Normal study EF 69% US: 10/31/22: (care everywhere) Liver normal Gallbaldder appears normal with no stones or sludge. No gallbladder wall thickening CBD 1.[address] abd/pel w/IV cont: 10/18/22: (scanned): Liver: no enlargement, atrophy, or focal lesion Biliary: no dilation or calcification Pancreas: haziness and p (more content not included)...[facility]06-05-20[facility] Telephone encounter Note* Telephone Encounter - [...] and advise. Thank you Analia Estevez RN [facility]06-05-2024 Miscellaneous Notes* Telephone Encounter - Analia Estevez [...] advise. Analia Estevez RN documented in this encounterMarietta Memorial Hospital06-03-2024 Telephone encounter Note * Telephone Encounter - Analia Estevez RN - 12/24/2023 10:06 AM EDT Maintain Levbid. Start Carafate. Ok to move up appt to December. Dara Butler Jr., DO Please call pt to set up an office visit in December, may use hold spot if needed. Thank you. Analia Estevez RN [facility]06-03-2024 Telephone encounter Note* Telephone Encounter - Analia Estevez RN - 12/24/2023 8:[address] Butler, would you prefer to see pt sooner in December? She was started on Levbid recently with no real improvement and requesting sooner office visit? Wondering if she might benefit from seeing functional medicine? Please review and advise. Analia Estevez RN [facility]05-15-2024 History of Present illness Narrative* Ariella Mccoy [...] up: KAREN Mccoy APRN.CNP documented in this encounterMarietta Memorial Hospital05-15-2024 NoteHNO ID: [id number] Author: ARIELLA MCCOY APRN.CNP Service: ? Author [...] that may arise. Follow up: KAREN Mccoy APRN.CNPPromedica [facility] Hospital05-15-2024 Nurse Note* Alivia Gracia MA - [...] clean & dry Temperature: No Drains: No [facility]05-15-2024 Nurse Note* Alivia Gracia MA - [...] Temperature: No Drains: No documented in this encounterMarietta Memorial Hospital05-01-2024 NoteHNO ID: [id number] Author: ?, ?, ? Service: ? Author Type: ? Type: Plan of Care Filed: 11/26/2023 17:37 Note Text: PHARMACY BEDSIDE DELIVERY SERVICE Patient Name: Chioma Alonzo The marked outpatient medications were filled and picked up at [facility] Medication List START taking these medications [...] or your Primary Care Provider. Miguel Flores (Bore Mill Operator) PAGER: [phone] November 26, 2023 5:37 [facility]05-01-2024 NoteHNO ID: [id number] Author: THELMA MARQUIS APRN.CRNA Service: Anesthesiology Author Type: Nurse Welder Tool And Die Type: Anesthesia Procedure Notes Filed: 11/21/2023 14:23 Note Text: ANESTHESIOLOGY PROCEDURE NOTE Airway General Information Procedure Start Time/Medication Administration: 11/21/2023 2:14 PM Procedure End Time: 11/21/2023 2:22 PM Patient location during procedure: OR Timeout Performed Pre-procedure: timeout performed Patient identity confirmed: arm band, care seafood team member and patient Staffing Anesthesiologist: Moshe Krishnamurthy DO VULCANIZER RUBBER PLATE: Thelma Marquis APRN.VULCANIZER RUBBER PLATE Performed by: VULCANIZER RUBBER PLATE Indications and Patient Condition Indications for airway [...] lips and teeth intact. SIGNATURE: Thelma Marquis APRN.VULCANIZER RUBBER PLATE PATIENT NAME: Chioma Alonzo DATE: November 21, 2023 TIME: 2:22 PM CSN: [id number] Telephone encounter Note * Telephone Encounter - [...] surgery. Hope this helps! Augustus Rushing MD [facility]04-26-2024 Miscellaneous Notes* Telephone Encounter - Madhu Causey [...] the intermediate risk surgery. Hope this helps! Augutsus Rushing MD * Telephone Encounter - Valery [...] as scheduled? Event monitor preliminary reading in [employer] View Cardiac Outpatient Recording/Telemetry [ID [id number]] ECHO completed in [employer]. Of note she also has been to the ED 2 times for her palpitations since your visit, with c/o of palpations intermittently throughout the day. she denies associated SOB or dizziness. She reports her symptoms have not changed. Thank you, Madhu Causye PA-C [facility] documented in this encounterMarietta Memorial Hospital04-25-2024 Telephone encounter Note * Telephone Encounter - [...] a cardiac standpoint. Per his last OV [facility]04-25-2024 Telephone encounter Note* Telephone Encounter - Madhu [...] as scheduled? Event monitor preliminary reading in [employer] [facility] Cardiac Outpatient Recording/Telemetry [ID [id number]] ECHO completed in [employer]. Of note she also has been to the ED 2 times for her palpitations since your visit, with c/o of palpations intermittently throughout the day. she denies associated SOB or dizziness. She reports her symptoms have not changed. Thank you, Madhu Causey PA-C [facility]04-25-2024 History and physical note* Madhu Causey PA-C [...] SOB. Pulse today 75, regular rhythm today [id number] 0 Ejection Fraction - Result: 63 % [...] COVID-19 original vaccine, age 12+ yr, monovalent (Aframe- EGTNTIdeal Network - PURPLE TOP) 03/16/2021 Imm Admin: COVID-19 original vaccine, age 12+ yr, monovalent (Aframe- BIONTIdeal Network - PURPLE TOP) REVIEW OF SYSTEMS: positive findings are BOLD PAIN ASSESSMENT: Pain Pain Level: 5 Pain Location: Back-Lower Description: Aching Duration Units: Months Frequency: Continuous Intervention/Comfort measure: Relaxation, Heat General: No weight loss, malaise or fevers. Neuro: No history of TIA's, stroke, TENSILE TESTER tumor, impaired sensorium, hemiplegia, paraplegia or quadraplegia. No neurological symptoms or problems. Respiratory: No history of current cough or dyspnea, or pneumonia in the past 6 weeks. No history of respiratory/pulmonary symptoms or problems. Cardiovascular: Palpitations (SVT) Negative for Recent CA, CAD, CHF, HTN Negative for chest pain, [...] 402 QTC Calculation (Bazett) 424 Calculated P [place] 76 Calculated R [place] 37 Calculated T [place] 57 Impression NORMAL SINUS RHYTHM WITH SINUS ARRHYTHMIA POSSIBLE LEFT ATRIAL ENLARGEMENT RSR' PATTERN IN V1 SUGGESTS INCOMPLETE RIGHT BUNDLE BRANCH BLOCK BORDERLINE ECG NO PREVIOUS ECGS AVAILABLE Confirmed by JENNIFER SURESH MD ([id number]) on 10/22/2023 1:00:28 PM Most recent Echo Recent Results (from the past 39875 hour(s)) ECHO Collection Time: 11/07/23 1:59 PM [...] were present. Isolated VEs were frequent (6.9%, 36322), VE Couplets were rare (<1.0%, 21), and no VE Triplets were present. Ventricular Bigeminy and Trigeminy were present. Instructions Given to Patient: Instructions located in the after visit summary. Patient given verbal and written preop instructions and voices comprehension and compliance. SIGNATURE: Madhu Causey PA-C PATIENT NAME: Chioma Alonzo DATE: 11/15/2023 TIME: 2:43 PM [facility]04-25-2024 History and physical note* Madhu aCusey PA-C - 11/15/2023 3:00 PM EDT HISTORY [...] SOB. Pulse today 75, regular rhythm today [id number] Ejection Fraction - Result: 63 % [...] Prior to Admission medications as of 11/15/23 5379 Medication Sig Last Dose Taking dicyclomine (BENTYL) [...] original vaccine, age 12+ yr, monovalent (PFIZER- BIONTIdeal Network - PURPLE TOP) 03/16/2021 Imm Admin: COVID-19 original vaccine, age 12+ yr, monovalent (PFIZER- BIONTECH - PURPLE TOP) REVIEW OF SYSTEMS: positive findings are BOLD PAIN ASSESSMENT: Pain Pain Level: 5 Pain Location: Back-Lower Description: Aching Duration Units: Months Frequency: Continuous Intervention/Comfort measure: Relaxation, Heat General: No weight loss, malaise or fevers. Neuro: No history of TIA's, stroke, TENSILE TESTER tumor, impaired sensorium, hemiplegia, paraplegia or quadraplegia. No neurological symptoms or problems. Respiratory: No history of current cough or dyspnea, or pneumonia in the past 6 weeks. No history of respiratory/pulmonary symptoms or problems. Cardiovascular: Palpitations (SVT) Negative for Recent CA, CAD, CHF, HTN Negative for chest pain, [...] 402 QTC Calculation (Bazett) 424 Calculated P [place] 76 Calculated R [place] 37 Calculated T [place] 57 Impression NORMAL SINUS RHYTHM WITH SINUS ARRHYTHMIA POSSIBLE LEFT ATRIAL ENLARGEMENT RSR' PATTERN IN V1 SUGGESTS INCOMPLETE RIGHT BUNDLE BRANCH BLOCK BORDERLINE ECG NO PREVIOUS ECGS AVAILABLE Confirmed by JENNIFER SURESH MD ([id number]) on 10/22/2023 1:00:28 PM Most recent Echo Recent Results (from the past 68153 hour(s)) ECHO Collection Time: 11/07/23 1:59 PM [...] were present. Isolated VEs were frequent (6.9%, 00207), VE Couplets were rare (<1.0%, 21), and no VE Triplets were present. Ventricular Bigeminy and Trigeminy were present. Instructions Given to Patient: Instructions located in the after visit summary. Patient given verbal and written preop instructions and voices comprehension and compliance. SIGNATURE: Madhu Causey PA-C PATIENT NAME: Chioma Alonzo DATE: 11/15/2023 TIME: 2:43 PM documented in this encounterMarietta Memorial Hospital04-22-2024 Instructions* Patient Instructions* Madhu Causey PA-C - 11/12/2023 9:12 AM EDT PATIENT PREOPERATIVE INSTRUCTIONS Seema Davis MD has scheduled you for your procedure at this surgery center: [facility]: --[id number] [address]. Please check in on the1st floor at [...] Procedures: - YOU MUST HAVE A RESPONSIBLE BUDGET TECHNICIAN TAKE YOU HOME. A MASTERCAM PROGRAMMER OR PHARMACY CLINICAL COORDINATOR CANNOT BE MADE A RESPONSIBLE BUDGET TECHNICIAN. - We recommend that a responsible person stays with you overnight to take care of you. - You cannot stay in a hotel alone after outpatient surgery. You will not be permitted to have yoursurgery, if you do not have someone to take care of you. If you already have an Advance Directive, please fax a copy to [phone] or email to for it to be [...] day. Madhu Causey PA-C documented in this encounterMarietta Memorial Hospital04-15-2024 Miscellaneous Notes* Telephone Encounter - Sedrick Rushing [...] she is in Bigeminy. documented in this encounterMarietta Memorial Hospital04-11-2024 Miscellaneous Notes* Telephone Encounter - Chichi Monroy [...] ongoing symptoms Staying hydrated Concerned Call CELL [phone] Leave Detailed messages * Telephone Encounter - Juanis Cabello RN - 10/30/2023 11:08 AM EDT The pt is calling. Please review the my chart message from today for an EKG attachment she sent from her ED visit last night. She went to the [place] ED. Are you able to revue her [...] a message. Thank you documented in this encounterMarietta Memorial Hospital04-02-2024 Miscellaneous Notes* Telephone Encounter - Wilfredo Avila OCCA - 10/23/2023 1:51 PM EDT Received form requesting cardiac evaluation for surgical clearance from [facility] General Surgery with Dr. Seema Davis. Surgery Date: 11-21-2023 Fax to [facility] General Surgery: [phone] Rushing to review. CHATO Ramirez documented in this encounterMarietta Memorial Hospital04-02-2024 Miscellaneous Notes* Telephone Encounter - Kym Gray RN - 10/23/2023 1:[address] Sedrick Rushing's office for cardiac clearance at [phone]. Abnormal heart sounds withgallbladder consult on 10/19/23. Received confirmation. Sent to scanning documented in this encounterMarietta Memorial Hospital04-01-2024 Nurse Note* Azael Lasron LPN - 10/22/2023 3:33 PM EDT EVENT MONITOR DISPOSABLE PATCH INSTRUCTIONS Patient Name: Chioma Alonzo [facility] Number: [id number] Skin prepped and cleansed with alcohol Patch secured to prepped area Monitor Activated Serial #: [id number] Patient Instructed: Prescribed order timeframe Bathing guidelines Usage of event button and diary documentation Return of monitor at the end of prescribed order Call with problems [phone] or [phone] ext. [phone] Patient expresses a good understanding of instructions Azael Larson LPN documented in this encounterMarietta [facility] Hospital04-01-2024 History of Present illness Narrative* Sedrick Rushign MD - 10/22/2023 3:00 PM EDT Images from the original note were not included. [facility] [place] Iram Pathak Department of Cardiovascular Medicine SECTION OF REGIONAL CARDIOLOGY OUTPATIENT VISIT DATE October 21, 2023 OUTPATIENT VISIT TYPE NEW CONSULTATION PRIMARY CARE PHYSICIAN: Analia Holliday [address] [place] [address] CHIEF COMPLAINT: Palpitations HISTORY OF PRESENT ILLNESS: [...] Rash, Shortnessof Breath, Unknown, Vomiting CURRENT MEDICATIONS: ysvfcp-vvefcwre-rqtxnyd (CREON) 24,000-76,000 -120,000 unit delayed release capsule [...] on File Prior to Visit Medication Sig wtppfz-naszowvk-imnnefc (CREON) 24,000-76,000 -120,000 unit delayed release capsule [...] Sedrick Rushing MD Cardiovascular Medicine Staff [facility] [address] [address] [place] [address] documented in this encounterMarietta Memorial Hospital04-01-2024 NoteHNO ID: [id number] Author: SEDRICK RUSHING MD Service: ? Author Type: Physician Type: Progress Notes Filed: 10/22/2023 15:17 Note Text: [facility] [place] Iram Pathak Department of Cardiovascular Medicine SECTION OF REGIONAL CARDIOLOGY OUTPATIENT VISIT DATE October 21, 2023 OUTPATIENT VISIT TYPE NEW CONSULTATION PRIMARY CARE PHYSICIAN: Analia Holliday [address] [address] CHIEF COMPLAINT: Palpitations HISTORY OF PRESENT ILLNESS: [...] Shortness of Breath, Unknown, Vomiting CURRENT MEDICATIONS: srbeha-elwscvvd-mgusvun (CREON) 24,000-76,000 -120,000 unit delayed release capsule [...] on File Prior to Visit Medication Sig ukctcm-njogdgjm-izcdnvz (CREON) 24,000-76,000 -120,000 unit delayed release capsule [...] INFORMATION: Sedrick Rushing MD Cardiovascular Medicine Staff [facility] [place] [address] [address] [place] [address] [facility]jhfedProm[facility]03-29-2024 NoteHNO ID: [id number] Author: KYM GRAY RN Service: ? Author [...] Kym Gray RN In Department: GENERAL SURGERY [facility]03-29-2024 NoteHNO ID: [id number] Author: KYM GRAY RN Service: ? Author [...] gallbladder EF-69%. This measurement is within normal limitsPromedica Memorial Hospital03-29-2024 NoteHNO ID: [id number] Author: SEEMA DAVIS MD Service: ? Author [...] Take 4 mg by mouth as needed. 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 Lives with her . [...] the date of the service which included veon-qc-voij patient care, completing clinical documentation, obtaining and/or reviewing separately obtained history, performing a medically appropriate examination, counseling and educating the patient/family/caregiver, and independently interpreting results (not separately reported). Seema Davis MD .[facility]03-29-2024 NoteEducation (GABRIELLA) CINDYCHIOMA Newberry Jovana ([id number]) 2000 F Date Time Provider Department 10/19/23 KYM GRAY Reason for Visit: Education Of Patient/family [904] Primary Visit Diagnosis:Acalculous cholecystitis [K81.9] Order(s):PT ED DIGESTIVE DISEASE [3913196] Order #: [id number]: 1 During your visit today, we recorded [...] Fully Assessed Prescriptions as of 10/19/2023 - ucdpby-tgqgpfmj-ctwmiwq (CREON) 24,000-76,000 -120,000 unit delayed release capsule [...] needed. Encounter Status:Closed by KYM GRAY on 10/19/23[facility] 09-11-2023 Miscellaneous Notes* Telephone Encounter - Gisela Ponce RN - 09/11/2023 4:25 PM EST Please refer to [facility] dated 09/11/2023. Gisela Ponce RN * Telephone Encounter - Jose ManueljajaZo - 09/11/2023 3:08 PM EST Patient calling to see if she is to follow up with Dr. Menon. He did recommend surgeon consult for cholecystectomy. Patient is asking for referral Please adivse patient documented in this encounterMarietta Memorial Hospital02-15-2024 Nurse Note* Rickie Gu RN - 09/06/2023 [...] None REFERRAL (RECOMMENDATION): None documented in this encounterMarietta Memorial Hospital02-15-2024 History and physical note * Isabelle Menon [...] mouth once daily. 09/05/2023 at 1000 Yes mobwnx-kcucnoup-ssjufiz (CREON) 24,000-76,000 -120,000 unit delayed release capsule [...] 2023 TIME: 12:20 PM documented in this encounterMarietta Memorial Hospital11-26-2023 Miscellaneous Notes* Telephone Encounter - Isabelle Menon [...] in one of her images report from [facility]. I will recommend CT-angiography to r/o gut [...] you, Gisela Ponce RN documented in this encounterMarietta Memorial Hospital11-15-2023 History and physical note * Isabelle Menon [...] her mother who works as in at [employer]. The problem started when she [...] an issue, start amitriptyline. Consider referral to [facility] if symptoms fail to improve. [...] divisum. 12/01/22 HIDA scan was done at [facility]: Normal study EF 69% US: 10/31/22: [...] with 350 mL of normal saline. 08/02/22 [facility] Gastroenterology Chioma Alonzo is a 21 y.o. [...] Abs Lymph 1.00 - 4.00 k/uL 2.17 Fentress% % 8.1 Abs Fentress <0.87 k/uL 0.36 Eosin% % 5.6 Abs [...] Isabelle Menon MD, FACP documented in this encounterMarietta Memorial Hospital11-10-2023 Evaluation note* Encounter Date Diagnosis Assessment Notes Treatment Notes Treatment Clinical Notes May, Vitamin D insufficiency (ICD-10 - E55.9) [facility] Other 11-02-2023 Evaluation note* Encounter Date Diagnosis Assessment Notes Treatment Notes Treatment Clinical Notes May, Well adult exam (ICD-10 - Z00.00 ) Routine lab work ordered. She will follow up with eye doctor due to some floaters that she is having. 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 Specialty notes reviewed as received. Patient is [...] Lexapro 10 mg daily. Will continue this. [facility] Other 10-31-2023 Instructions* Patient Instructions* Dara Butler Jr., DO - 05/22/2023 11:39 AM EDT Start amitriptyline Keep appt with Dr. Menon for pancreatic / biliary clinic documented in this encounterMarietta Memorial Hospital10-31-2023 History of Present illness Narrative* Dara [...] last colonoscopy was 8 months ago in [place]. Past GI workup 05/08/23 ER visit notes [...] Office Visit [facility] [address] [place] [address] Kyree Stinson MD Abnormal flushing and sweating [...] per patient. She sees a specialist to [facility] doctor Butler for GI- currently awaiting genetic [...] dicyclomine 12/01/22 HIDA scan was done at [facility]: Normal study EF 69% US: 10/31/22: [...] with 350 mL of normal saline. 08/02/22 [facility] Gastroenterology Chioma Alonzo is a 21 y.o. [...] (PCR) (04/02/2023 10:00 AM EDT) Results - [facility] GI PANEL (PCR) (04/02/2023 10:00 AM EDT) [...] Abs Lymph 1.00 - 4.00 k/uL 2.17 Fentress% % 8.1 Abs Fentress <0.87 k/uL 0.36 Eosin% % 5.6 Abs [...] BY MOUTH THREE TIMES DAILY WITH MEALS aitfsd-fqqcdtvx-cqqpdej (ZENPEP) 40,000-126,000- 168,000 unit delayed release capsule [...] an issue, start amitriptyline. Consider referral to [facility] if symptoms fail to improve. [...] studies Dara Butler Jr. documented in this encounterMarietta Memorial Hospital10-12-2023 Miscellaneous Notes* Telephone Encounter - Analia [...] Dara Butler Jr., DO documented in this encounterMarietta Memorial Hospital09-23-2023 Miscellaneous Notes* Telephone Encounter - Analia Estevez RN - 04/14/2023 9:23 AM EDT Patient has viewed results per [facility]. Analia Estevez RN * Telephone Encounter - Analia Estevez RN - 04/14/2023 9:23 AM EDT ----- Message from Dara Butler Jr., DO sent at 04/13/2023 4:04 PM EDT ----- MRI negative for pancreatitis and anatomic pancreatic abnormalities. Dara Butler Jr., DO documented in this encounterMarietta Memorial Hospital09-22-2023 Miscellaneous Notes* [facility] - Yessi Adkins, car rental agent - 04/13/2023 2:40 PM EDT Radiology Service [...] 2023 TIME: 3:13 PM documented in this encounterMarietta Memorial Hospital09-22-2023 Progress note* [facility] - Yessi [...] DATE: April 13, 2023 TIME: 3:13 PM [facility]09-08-2023 Miscellaneous Notes* Telephone Encounter - Analia Estevez RN - 03/30/2023 10:33 AM EDT Patient has viewed results per [facility]. Analia Estevez RN * Telephone Encounter - [...] She had this testing done through [facility]. She is working on getting faxed results to office. Pt states she feels fine, no symptoms but would like to follow up with nurse. Please advise Patient has been identified by name and birthdate. Duration of symptoms: N/A Person calling: self Call patient at: at home [phone] (home) [phone] (cell) Was an appointment scheduled: No Closing statement: Results or non-symptom based questions: Thank you for calling [facility], your call will be returned within the next business day. Eva Wynne documented in this encounterMarietta Memorial Hospital09-05-2023 Evaluation note* Encounter Date Diagnosis Assessment Notes Treatment Notes Treatment Clinical Notes Mar, Diarrhea (ICD-10 - R19.7) [facility] Other 09-01-2023 Evaluation note* Encounter Date Diagnosis Assessment Notes Treatment Notes Treatment Clinical Notes Mar, C. difficile diarrhea (ICD-10 - A04.72) [facility] Other 09-01-2023 Miscellaneous Notes* Telephone Encounter - Bryson Arredondo MA - 03/23/2023 7:59 AM EDT Pt was notified via . * Telephone Encounter - Nae Ibarra MD - 03/22/2023 9:36 PM EDT Please Call patient if MyChart note not read to review results/released to My Chart if tests completed at [facility]: Improved/Normal labs and no inflammation. [...] hepatitis panel, quantiferon tb; documented in this encounterMarietta Memorial Hospital08-30-2023 Miscellaneous Notes* Telephone Encounter - Analia Estevez RN - 03/21/2023 11:02 AM EDT Results were viewed by patient per [facility]. Analia Estevez RN * Telephone Encounter - Analia Estevez RN - 03/21/2023 11:00 AM EDT ----- Message from Dara Butler Jr., DO sent at 03/21/2023 7:46 AM EDT ----- Labs essentially unremarkable including negative celiac Dara Butler Jr., DO documented in this encounterMarietta Memorial Hospital08-29-2023 Evaluation note* Encounter Date Diagnosis Assessment Notes Treatment Notes Treatment Clinical Notes Feb, Diarrhea (ICD-10 - R19.7) [facility] Other 08-25-2023 Miscellaneous Notes* Telephone Encounter - Analia Estevez RN - 03/16/2023 12:38 PM EDT Per our discussion please review and sign orders for MRI per out discussion based off mychart message per patient. Analia Estevez RN documented in this encounterMarietta Memorial Hospital07-18-2023 Instructions* Patient Instructions* Dara Butler Jr., DO - 02/06/2023 10:35 AM EDT Check labs Start Levbid Start Zenpep Stop dicyclomine documented in this encounterMarietta Memorial Hospital07-18-2023 History of Present illness Narrative* Dara [...] REFLEX Dara Butler Jr. documented in this encounterMarietta Memorial Hospital06-05-2023 Miscellaneous Notes* Telephone Encounter - Ana Eckert - 12/25/2022 10:22 AM EDT Spoke with patient Scheduled Consult to GI for first avail at [place] in January Did not schedule Med Gen Consult. Still pending review- patient said she will schedule when she sees Dr Luke Eckert December 25, 2022 10:27 AM * Telephone Encounter - Bryson Arredondo MA - 12/25/2022 9:22 AM EDT Pt has been notified via [facility] * Telephone Encounter - Nae Ibarra MD - 12/23/2022 12:53 AM EDT Please call patient. Thank you for the update and your kind words. Sorry to hear about your discomfort. Placed a consult to medical genetics and GI as requested. May schedule at your convenience. Hope you feel better soon! Warm regards, :) documented in this encounterMarietta Memorial Hospital05-03-2023 Evaluation note* Encounter Date Diagnosis Assessment Notes Treatment Notes Treatment Clinical Notes November, Nausea (ICD-10 - R11.0) Advised pt to avoid smoking marijuana to see if that helps relieve symptoms. November,ancreatitis (ICD-10 - K85.90) November,bnormal abdominal CT scan (ICD-10 - R93.5) November,bdominal pain (ICD-10 - R10.9)Start dicyclomine 10mg tid November,Irritable bowel syndrome with diarrhea (ICD-10 - K58.0)Recommended Benefiber Follow up 2 months [facility] Other 01-01-2023 History general Narrative - Reported* Type Description Date Medical History Esophageal reflux Medical HistoryanxietySurgical Historywisdom teeth extractSurgical HistoryFMT 07/2022Hospitalization Historypancreatitis [facility] Other 10-06-2022 Evaluation note* Encounter Date Diagnosis Assessment Notes Treatment Notes Treatment Clinical Notes Apr, Irritable bowel syndrome with di arrhea (ICD-10 - K58.0) PATIENT DOES HAVE 3 BOWEL MOVEMENTS A DAY SOMETIMES 1 Apr,2RUQ pain (ICD-10 - R10.11) [facility] Other 08-24-2022 History of Present illness Narrative* Mckenzie Kincaid RN - 03/15/2022 3:30 PM EDT Patient verified full name and * Irena Diallo MD - 03/15/2022 3:30 PM EDT GI CLINIC PROGRESS NOTE PATIENT NAME: Chioma Henao ATTENDING: Irena Diallo MD : 2000 AGE: 21 y.o. GENDER: female LOCATION: GENERAL AND GASTROINTESTINAL SURGERY [facility] DATE OF VISIT: 03/15/2022 REFERRING MD: Jaya [...] diff infection, s/p treatment with fidaxomicin and SUPREME COURT JUDGE. Symptoms persist, possible post infection IBS vs recurrent c. Diffinfection. Active marijuana user, smokes viper as well. DISPOSITION AND PLAN: 1. Will obtain c diff toxin Ag 2. Stool enteric panel 3. [place] of [place] 4. Imodium prn (after infection is ruled out) 5. Marijuana and viper abstinence counseling provided. Face to face interaction: 25 Time to complete visit: 60 Irena Diallo MD Email Specialist Division of Gastroenterology, Hepatology and Nutrition Department of Internal Medicine [facility] documented in this encounterOSU [facility] Instructions* Patient Instructions* Irena Diallo MD - 03/15/2022 3:30 PM EDT C diff toxin Ag Enteric stool panel Dicyclomine Imodium prn if infection is ruled out documented in this encounterU [facility]03-08-2022 Evaluation note * Encounter Date Diagnosis Assessment Notes Treatment Notes Treatment Clinical Notes Sep, C. difficile diarrhea (ICD-10 - A04.72) START DIFICID DIRECTED REFERRAL TO [facility] FOR RECURRET C.DIFF [facility] Other 11-30-2021 NoteChief Complaint consultation for nausea [...] Use:., 06/21/2021 Family History Cancer: Father. Stroke: Mother.[facility] HospitalComment on above:Result Comment: Electronically Signed By: KALEB MACKEY, Ana Lan\Date and Time Signed: 06/21/21 20:44 [id number] Evaluation note* Encounter Date Diagnosis Assessment Notes [...] Patient care instructions given in writting by [facility] Care At Home document. [facility] Other 05-18-2021 NoteChief Complaint Consultation for Colonoscopy [...] Use:., 12/07/2020 Family History Cancer: Father. Stroke: Mother.[facility] HospitalComment on above:Result Comment: Electronically Signed By: KALEB MACKEY, Ana Lan\Date and Time Signed: 12/07/20 17:18 [id number] Miscellaneous Notes* Result Encounter Note - Rickie Naqvi DO - 12/02/2020 10:00 AM EDT CTA head and neck are both normal. No abnormalities noted. documented in this encounterThe [facility] noteNo [facility]ark[facility] Quick2LAUNCH Other Evaluation note* Diagnosis Diarrhea, unspecified type- Primary documented in [facility] encounter [facility]* Diagnosis Generalized abdominal pain- Primary Abdominal pain, generalized documented in this encounter [facility] note* Diagnosis Chronic pancreatitis, unspecified pancreatitis type (HCC)- Primary Generalized abdominal pain Abdominal pain, generalized Intestinal malabsorption, unspecified type documented in this encounter [facility] note* Diagnosis Chronic recurrent pancreatitis (HCC)- Primary Chronic pancreatitis documented in this encounter [facility] note* Diagnosis Chronic pancreatitis, unspecified pancreatitis type (HCC)- Primary Generalized abdominal pain Abdominal pain, generalized Irritable bowel syndrome with diarrhea Irritable bowel syndrome History of Clostridioides difficile colitis documented in this encounter [facility] note* Diagnosis Family history of ischemic heart disease and other diseases of the circulatory system History of acute pancreatitis Personal history of other diseases of digestive system Carotid artery aneurysm (HCC) Aneurysm of artery of neck documented in this encounter [facility] noteNo assessment information [facility] Work Phone: Evaluation note* Diagnosis RUQ pain- Primary Abdominal pain, right upper quadrant History of pancreatitis Personal history of other diseases of digestive system Nausea Nausea alone Diarrhea, unspecified type History of Clostridium difficile infection Personal history of other infectious and parasitic disease documented in this encounter [facility] note* Diagnosis Generalized abdominal pain- Primary Abdominal pain, generalized RUQ pain Abdominal pain, right upper quadrant Chronic recurrent pancreatitis (HCC) Chronic pancreatitis Diarrhea, unspecified type documented in this encounter [facility] note* Diagnosis Chronic recurrent pancreatitis (HCC) Chronic pancreatitis documented in this encounter [facility] HospitalEvaluw[facility] note* Diagnosis Palpitations- Primary Other supraventricular tachycardia (HCC) Cholecystitis Cholecystitis, unspecified documented [facility] this encounter [facility]* Diagnosis Pre-op examination- Primary Preoperative examination, unspecified Palpitations Organic anxiety syndrome Anxiety disorder in conditions classified elsewhere Cholecystitis Cholecystitis, unspecified documented [facility] this encounter [facility]* Diagnosis Onset Date Resolution Status Esophageal reflux acuteGAD (generalized anxiety disorder)acuteIrritable bowel syndrome with diarrheaacuteVitamin D insufficiencyacute [facility] Work Phone: Evaluation note* Diagnosis S/P gastrointestinal surgery, follow-up exam- Primary Follow-up examination, following other surgery S/P laparoscopic cholecystectomy Other postprocedural status documented in this encounter [facility]* Diagnosis Generalized abdominal pain- Primary Abdominal pain, generalized History of acute pancreatitis Personal history of other diseases of digestive system documented [facility] this encounter [facility]* Diagnosis Upper abdominal pain- Primary Abdominal pain, other specified site Dyspepsia and disorder of function of stomach Dyspepsia and other specified disorders of function of stomach Dyspepsia Dyspepsia and other specified disorders of function of stomach documented in this encounter [facility]* Diagnosis Upper abdominal pain Abdominal pain, other specified site Dyspepsia and disorder of function of stomach Dyspepsia and other specified disorders of function of stomach Dyspepsia Dyspepsia and other specified disorders of function of stomach documented [facility] this encounter [facility]* Diagnosis Upper abdominal pain Abdominal pain, other specified site Dyspepsia and disorder of function of stomach Dyspepsia and other specified disorders of function of stomach documented [facility] this encounter [facility]* Diagnosis Epigastric pain- Primary Abdominal pain, epigastric documented in this encounter [facility]* Diagnosis Onset Date Resolution Status LOCO (generalized anxiety disorder) acute [facility] Work Phone: evaluation note* Diagnosis APPOINTMENT CANCELLED- Primary documented in this encounter [facility]* Diagnosis Chronic recurrent pancreatitis (HCC) Chronic pancreatitis documented in this encounter [facility]* Diagnosis Diarrhea, unspecified type- Primary documented in this encounter [facility] note* Diagnosis Right sided abdominal pain- Primary Abdominal pain, unspecified site Neuralgia and neuritis Neuralgia, neuritis, and radiculitis, unspecified Celiac artery compression syndrome (HCC) Celiac artery compression syndrome documented in this encounter [facility]* Diagnosis Right sided abdominal pain- Primary Abdominal pain, unspecified site Celiac artery compression syndrome (HCC) Celiac artery compression syndrome Neuralgia and neuritis Neuralgia, neuritis, and radiculitis, unspecified Right sided abdominal pain Abdominal pain, unspecified site Celiac artery compression syndrome (HCC) Celiac artery compression syndrome Neuralgia and neuritis Neuralgia, neuritis, and radiculitis, unspecified documented in this encounter [facility] HospitalEvaluation [facility]* Diagnosis Neoplasm of unspecified behavior of bone, soft tissue, and skin- Primary [facility] Diagnosis Median arcuate ligament syndrome (CMS-HCC)- Primary Celiac artery compression syndrome documented in this encounter [facility] Work Phone: Evaluation note* Diagnosis Epigastric pain- Primary Abdominal pain, epigastric Median arcuate ligament syndrome (CMS-HCC) Celiac artery compression syndrome Difficulty breathing Other dyspnea and respiratory abnormality documented in this encounter [facility] Work Phone: Evaluation note* Diagnosis Follow-up visit after miscarriage documented [facility] Diagnosis Median arcuate ligament syndrome (CMS-HCC) Celiac artery compression syndrome documented in this encounter [facility] Work Phone: Evaluation note* Diagnosis Chronic [...] and radiculitis, unspecified documented in this encounter [facility]* Diagnosis Generalized abdominal pain Abdominal pain, generalized Change in bowel habits Other symptoms involving digestive system documented in this encounter [facility]* Diagnosis Status post laparoscopic appendectomy- Primary Other postprocedural status [facility] Diagnosis Onset Date Resolution Status Admit Date Diarrhea acuteApril 2024 9:52am [facility] Work Phone: Evaluation note* Diagnosis Encounter for infertility PCOS (polycystic ovarian syndrome) Polycystic ovaries Abnormal uterine bleeding (AUB) documented in this encounter [facility] HealthcareEvaluation note* Diagnosis 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 documented in this encounter [facility] Work Phone: History general Narrative - Reported* Type Description Date Medical History Esophageal reflux Medical HistoryanxietySurgical Historywisdom teeth extractHospitalization HistorypanCarlypso Other Hisowhv general Narrative - Reported* Type Description Date Medical History Esophageal reflux Medical HistoryANXIETYMedical HistoryPANCREATITISMedical HistoryC DIFFMedical HistoryCOLON INFLAMMATIONMedical History2 FECAL TRANSPLANTSMedical History ENDOMETRIOSISSurgical Historywisdom teeth extractSurgical YffarodFHG45/2023 Surgical HistoryLAPROSOCOPY FOR ENDOMETRIOSISHospitalization [facility] Other InstructionsNot on filedocumented in this encounter [facility] Cloudcam SystemInstructionsNot on filedocumented in this encounter [facility] SystemReason for referral (narrative)* Diagnostic Procedure Only (Routine) - ClosedSpecialtyDiagnoses / ProceduresReferred By Contact Referred To ContactCT IMAGING Diagnoses Carotid artery aneurysm (HCC) History of acute pancreatitis Procedures CTA NECK W IVCON CTA NECK, W/WO C, W/3D Rickie Naqvi DO [address] [place] [address] [address] [facility] [place] [address] Referral IDStatusReasonStart DateExpiration DateVisits RequestedVisits [id number] Auto-Generated Referral / * Diagnostic Procedure Only (Routine) - ClosedSpecialtyDiagnoses / Procedures Referred By ContactReferred To ContactCT IMAGING Diagnoses Family history of ischemic heart disease and other diseases of the circulatory system History of acute pancreatitis Procedures CTA HEAD WO/W IVCON CTA HEAD WWO C, W/3D Rickie Naqvi DO [address] [place] [address] [place] [address] Referral IDStatusReasonStart DateExpiration DateVisits RequestedVisits [id number] Auto-Generated Referral / [facility] for referral (narrative)* Outpatient Procedure (Routine) - ClosedSpecialtyDiagnoses / ProceduresReferred By ContactReferred To Contact [facility] [place] Diagnoses Chronic recurrent pancreatitis (HCC) Procedures EGD - THERAPEUTIC, EUS, OR TUBE INTERVENTIONS EDG US EXAM SURGICAL ALTER STOM DUODENUM/[place] [address] [place] [address] [facility] Disease [place] [id number] Referral IDStatusReasonStgillett DateExpiration DateVisits RequestedVisits [id number] Auto-Generated Referral [facility] for referral (narrative)* Outpatient Procedure (Routine) - AuthorizedSpecialtyDiagnoses / ProceduresReferred By ContactReferred To ContactREGENCY HOSPITAL COMPANYRT AND VASCULAR [place] Diagnoses Other supraventricular tachycardia (HCC) Palpitations Procedures ECHO ECHO TTHRC R-T 2D W/WOM-MODE COMPL SPEC&[place] [address] [facility] [place] [address] Heart [facility] [place] [address] [place] [address] Referral IDStatusReasonStgillett DateExpiration DateVisits RequestedVisits [id number] Auto-Generated Referral / [facility] for referral (narrative)* Diagnostic Procedure Only (Routine) - AuthorizedSpecialtyDiagnoses / ProceduresReferred By Contact Referred To ContactMOLECULAR & FUNCTIONAL IMAGING Diagnoses Upper abdominal pain Dyspepsia and disorder of function of stomach Dyspepsia Procedures NM GASTRIC EMPTYING SOLID GASTRIC EMPTYING STUDY Dara Butler Jr., DO [address] [place] [address] Molecular & Functional Imaging [address] [place] [address] Referral IDStatusReasonStart DateExpiration DateVisits RequestedVisits [id number] Auto-Generated Referral * Diagnostic Procedure Only (Routine) - Pending ReviewSpecialtyDiagnoses / ProceduresReferred By ContactReferred To ContactXR IMAGING Diagnoses Upper abdominal pain Dyspepsia and disorder of function of stomach Procedures XR UPPER GI SINGLE CONTRAST RADIOLOGIC EXAM UPR GI TRC SINGLE CONTRAST STUDY Dara Butler Jr., DO [address] [place] [address] X[facility] [place] [address] Referral IDStatusReasonStgillett DateExpiration DateVisits RequestedVisits [id number] Review Auto-Generated Referral [facility] for referral (narrative)* Diagnostic Procedure Only (Routine) - ClosedSpecialtyDiagnoses / ProceduresReferred By ContactReferred To ContactMOLECULAR & FUNCTIONAL IMAGING Diagnoses Upper abdominal pain Dyspepsia and disorder of function of stomach Dyspepsia Procedures NM GASTRIC EMPTYING SOLID GASTRIC EMPTYING STUDY Dara Butler Jr., DO [address] [place] [address] Molecular & Functional Imaging [address] [place], [place] [id number] Referral IDStatusReasonStart DateExpiration DateVisits RequestedVisits [id number] Auto-Generated Referral [facility] for referral (narrative)* Diagnostic Procedure Only (Routine) - ClosedSpecialtyDiagnoses / ProceduresReferred By ContactReferred To ContactXR IMAGING Diagnoses Upper abdominal pain Dyspepsia and disorder of function of stomach Procedures XR UPPER GI SINGLE CONTRAST RADIOLOGIC EXAM UPR GI TRC SINGLE CONTRAST STUDY Dara Butler Jr., DO [address] [place] [address] [place] [address] Referral IDStatusReasonSpring [place] DateExpiration DateVisits RequestedVisits [id number] Auto-Generated Referral / [facility] for referral (narrative)* Consultation (Routine) - AuthorizedSpecialtyDiagnoses / ProceduresReferred By ContactReferred To ContactPain Medicine Diagnoses Median arcuate ligament syndrome (CMS-H[place]) [place] [address] [address] [place] [address] Paula Pretty MD [address] [place] [address] [place] [address] Referral IDStatusReasonStgillett DateExpiration DateVisits RequestedVisits [id number] Specialty Services Required * Consultation (Routine) - AuthorizedSpecialtyDiagnoses / ProceduresReferred By ContactReferred To ContactGeneral Surgery Diagnoses Median arcuate ligament syndrome ([place] [address] [place] [address] Whitney Ambriz MD MPH [address] [facility] [place], [place] [address] [place] [address] Referral IDStatusReasonStart DateExpiration DateVisits RequestedVisits [id number] Specialty Services Required / [facility] Work Phone: Reacbn for visit Narrative* Diagnostic Procedure Only (Routine) - ClosedSpecialtyDiagnoses / ProceduresReferred By ContactReferred To ContactCT IMAGING Diagnoses Carotid artery aneurysm (HCC) History of acute pancreatitis Procedures CTA NECK W IVCON CTA NECK, W/WO C, W/3D Rickie Naqvi DO [address] [place] [address] Ct Imaging [facility] Referral IDStatusReasonStgillett DateExpiration DateVisits RequestedVisits [id number] Auto-Generated Referral / [facility] for visit Narrative* Outpatient Procedure (Routine) - ClosedSpecialtyDiagnoses / ProceduresReferred By ContactReferred To Contact [facility] Diagnoses Chronic recurrent pancreatitis (HCC) Procedures EGD - THERAPEUTIC, EUS, OR TUBE INTERVENTIONS EDG US EXAM SURGICAL ALTER STOM DUODENUM/[place] [address] [place] [address] [facility] [place] [address] [place] [address] Referral IDStatusReasonStart DateExpiration DateVisits RequestedVisits [id number] Auto-Generated Referral / [facility] for visit Narrative* Diagnostic Procedure Only (Routine) - ClosedSpecialtyDiagnoses / ProceduresReferred By ContactReferred To Contact MOLECULAR & FUNCTIONAL IMAGING Diagnoses Upper abdominal pain Dyspepsia and disorder of function of stomach Dyspepsia Procedures NM GASTRIC EMPTYING SOLID GASTRIC EMPTYING STUDY Dara Butler Jr., DO [address] [place] [address] Molecular & Functional Imaging [address] [place] [address] Referral IDStatusReasonStart DateExpiration DateVisits RequestedVisits [id number] Auto-Generated Referral / [facility] for visit Narrative* Diagnostic Procedure Only (Routine) - ClosedSpecialtyDiagnoses / ProceduresReferred By ContactReferred To Contact XR IMAGING Diagnoses Upper abdominal pain Dyspepsia and disorder of function of stomach Procedures XR UPPER GI SINGLE CONTRAST RADIOLOGIC EXAM UPR GI TRC SINGLE CONTRAST STUDY Dara Butler Jr., DO [address] [place] [address] [place] [address] Referral IDStatusReasonStgillett DateExpiration DateVisits RequestedVisits [id number] Auto-Generated Referral / [facility] for visit Narrative* Consultation (Routine) - Authorized SpecialtyDiagnoses / ProceduresReferred By ContactReferred To ContactGeneral Surgery Diagnoses Median arcuate ligament syndrome (CMS-[place]) [place] [address] [address] Whitney Ambriz MD MPH [address] [facility] [place], [place] [address] [place] [address] Referral IDStatusReasonStgillett DateExpiration DateVisits RequestedVisits [id number] Specialty Services Required / [facility] Work Phone: [facility] for visit Narrative* Outpatient Procedure (Routine) - ClosedSpecialtyDiagnoses / ProceduresReferred By ContactReferred To ContactDIGESTIVE DISEASE INSTITUTE Diagnoses Generalized abdominal pain Change in bowel habits Procedures COLONOSCOPY DIAGNOSTIC COLONOSCOPY FLX DX W/COLLJ SPEC WHEN PFDara Hagan Jr., DO [address] [place] [address] Phone: tel: fax: [facility] [address] [place] [address] Ref[facility]Status[facility] DateExpiration DateVisits RequestedVisits [id number] Auto-Generated Referral [facility] for visit Narrative* Endoscopy (Routine) - Authorized SpecialtyDiagnoses / ProceduresReferred By ContactReferred To Contact Gastroenterology Diagnoses Median arcuate ligament syndrome Procedures Esophagogastroduodenoscopy (EGD) MO ESOPHAGOGASTRODUODENOSCOPY TRANSORAL DIAGNOSTIC MO EGD TRANSORAL BIOPSY SINGLE/MULTIPLE Whitney Ambriz MD MPH [address] [place] [address] Phone: tel: fax: Referral IDStatusReasonStgillett DateExpiration DateVisits RequestedVisits [id number]/15/20248/15/202511 [facility] Work Phone: Summary Purpose Family History [...] arcuate ligament syndrome (CMS-HCC) Procedures Esophagogastroduodenoscopy (EGD) MO ESOPHAGOGASTRODUODENOSCOPY TRANSORAL DIAGNOSTIC MO EGD TRANSORAL BIOPSY SINGLE/MULTIPLE Whitney Ambriz MD MPH [address] [place] [address] Referral IDStatusReasonStart DateExpiration DateVisits RequestedVisits [id number]/15/20248/948010OfoqdhlevOtcblbkmi / Procedures Referred By ContactReferred To ContactCT IMAGING Diagnoses Generalized abdominal pain RUQ pain Chronic recurrent pancreatitis (HCC) Diarrhea, unspecified type Procedures CTA ABD/PEL W IVCON CT ANGIO ABD&PLVIS CNTRST MTRL W/[place] [address] [place] [address] [place] [address] Referral IDStatusReasonStart DateExpiration DateVisits RequestedVisits [id number] Auto-Generated Referral [id number] / ProceduresReferred By ContactReferred To ContactMR IMAGING Diagnoses Chronic recurrent pancreatitis (HCC) Procedures MRI ABDOMEN WO/W IVCON MRI ABDOMEN W/O & W/CONTRAST MATERIAL Dara Butler Jr., DO [address] [facility] [place] [address] [place] [address] Referral IDStatusReasonSpring [place] DateExpiration DateVisits RequestedVisits [id number] Auto-Generated Referral /[id number] / ProceduresReferred By ContactReferred To ContactGastroenterology Diagnoses Generalized abdominal pain Procedures CONSULT TO GASTROENTEROLOGY OFFICE/OUTPATIENT [facility] 60-74 MINUTES Nae Ibarra MD [address] [place] [address] Referral IDStatusReasonStart DateExpiration DateVisits RequestedVisits [id number] PCP Requested Referral /[id number] / ProceduresReferred By ContactReferred To Contact Diagnoses Generalized abdominal pain Procedures CONSULT TO MEDICAL GENETICS - GENERAL OFFICE/OUTPATIENT [facility] 60-74 MINUTES MEDICAL GENETICS COUNSELING EACH 30 MINUTES Nae Ibarra MD [address] [place] [address] [facility] [address] [place] [address] Referral IDStatusReasonStart DateExpiration DateVisits RequestedVisits [id number] Review PCP Requested Referral Auto-Generated Referral / Reason Please schedule cons ult to evaluate and treat at [facility] (in [place]) for recurrent c.diff infection. (for possible fecal [...] section and content) DATE CREATED AUTHOR 09/15/2021 [facility] DATE CREATED AUTHOR AUTHOR'S ORGANIZ ATION 02/16/2022 [facility] DATE CREATED AUTHOR AUTHOR'S ORGANIZ ATION 03/18/2022 [facility] DATE CREATED AUTHOR AUTHOR'S ORGANIZ ATION 12/04/2022 [facility] DATE CREATED AUTHOR AUTHOR'S ORGANIZ ATION 04/26/2023 [facility] DATE CREATED AUTHOR AUTHOR'S ORGANIZ ATION 02/13/2024 [facility] DATE CREATED AUTHOR AUTHOR'S ORGANIZ ATION 07/17/2024 [facility] DATE CREATED AUTHOR AUTHOR'S ORGANIZ ATION 08/01/2024 [facility] DATE CREATED AUTHOR AUTHOR'S ORGANIZ ATION 08/06/2024 [facility] DATE CREATED AUTHOR AUTHOR'S ORGANIZ ATION 09/07/2024 [facility] DATE CREATED AUTHOR AUTHOR'S ORGANIZ ATION 03/25/2025 [facility] EPIC REASON FOR VISIT (unrecogniz ed section and content) ReasonCommentsNew PatientSpecialtyDiagnoses / ProceduresReferred By Contact Referred To ContactGastroenterology Diagnoses C. difficile diarrhea Jaya Parikh MD [address] [place] [address] Referral IDStatusReasonStart DateExpiration DateVisits RequestedVisits [id number] Review/[id number] Pain SpecialtyDiagnoses / ProceduresReferred By ContactReferred To Contact Gastroenterology Diagnoses Generalized abdominal pain Procedures CONSULT TO GASTROENTEROLOGY OFFICE/OUTPATIENT [facility] 60-74 MINUTES Nae Ibarra MD [address] [place] [address] Referral IDStatusReasonStart DateExpiration DateVisits RequestedVisits [id number] PCP Requested Referral /[id number]sazQutptlpeGGDX REMINDERAPPT REMINDER CALL, LEFT MESSAGE REGARDING DIRECTIONS TO OFFICE AND # IN NEED TO CANCELReason CommentsFollow UpReasonCommentsRecheckReasonCommentsScansReasonCommentsPatient UpdateReasonCommentsConsultSpecialtyDiagnoses / ProceduresReferred By Contact Referred To ContactCardiology Diagnoses Other supraventricular tachycardia (HCC) Procedures CONSULT TO CARDIOLOGY OFFICE/OUTPATIENT [facility] 60 [place] [address] [place] [id number] Referral IDStatusReasonStart DateExpiration DateVisits RequestedVisits [id number] PCP Requested Referral /[id number] ClearanceReasonCommentsPalpitationsED pt updateReasonCommentsPatient QuestionPVCs and Frequent ED visits.Reason CommentsAnesthesia ConsultCholecystitisReasonCommentsPre-Op ExamReasonComments Post Op Follow Up11/21/23 lap choleReasonOnset DateCommentsRefill Request 4ReasonCommentsRadiology NMReasonCommentsConsultReasonCommentsBack Pain SpecialtyDiagnoses / ProceduresReferred By ContactReferred To ContactMR IMAGING Diagnoses Chronic recurrent pancreatitis (HCC) Procedures MRI ABDOMEN WO/W IVCON MRI ABDOMEN W/O & W/CONTRAST MATERIAL Dara Butler Jr., DO [address] [place] [address] [address] Imaging [facility] Referral IDStatusReasonStgillett DateExpiration DateVisits RequestedVisits [id number] Auto-Generated Referral /[id number]rPr need for OV with Dr. De La Paz CommentsSchedule InjectionReasonCommentsAppointmentReasonCommentsSuspicious Skin LesionReasonCommentsNew Patient VisitC/o of stomach pain, nausea and diarrhea since age 15. Is able to eat a full meal.ReasonCommentsfollow up miscarriage SpecialtyDiagnoses / ProceduresReferred By ContactReferred To Contact Gastroenterology Diagnoses Median arcuate ligament syndrome (CMS-HCC) Procedures Esophagogastroduodenoscopy (EGD) MO ESOPHAGOGASTRODUODENOSCOPY TRANSORAL DIAGNOSTIC MO EGD TRANSORAL BIOPSY SINGLE/MULTIPLE Whitney Ambriz MD MPH [address] [place] [address] Referral IDStatusReasonStart DateExpiration DateVisits RequestedVisits [id number]/15/20248/15/048931BcymqmDsknkxfdVbgljs UpFollow-up on everything.ReasonCommentsPost-opPost op laparoscopic [facility]InfertilityPt present today to discuss fertility Source Comments (unrecognize d section and content) In the event this informatio n is protected by the Federal Confidentiality of Alcohol and Drug Abuse Patient Records regulations: The Federal rules restrict any use of the information to criminally investigate or prosecute any alcohol or drug abuse patient.[facility] HospitalIn the event this information is protected by the Federal Confidentiality of Alcohol and Drug Abuse Patient Records regulations: The Federal rules restrict any use of the information to criminally investigate or prosecute any alcohol or drug abuse patient.[facility] HospitalIn the event this information is protected by the Federal Confidentiality of Alcohol and Drug Abuse Patient Records regulations: The Federal rules restrict any use of the information to criminally investigate or prosecute any alcohol or drug abuse patient.[facility] HospitalIn the event this information is protected by the Federal Confidentiality of Alcohol and Drug Abuse Patient Records regulations: The Federal rules restrict any use of the information to criminally investigate or prosecute any alcohol or drug abuse patient.[facility] HospitalIn the event this information is protected by the Federal Confidentiality of Alcohol and Drug Abuse Patient Records regulations: The Federal rules restrict any use of the information to criminally investigate or prosecute any alcohol or drug abuse patient.[facility] HospitalIn the event this information is protected by the Federal Confidentiality of Alcohol and Drug Abuse Patient Records regulations: The Federal rules restrict any use of the information to criminally investigate or prosecute any alcohol or drug abuse patient.[facility] HospitalIn the event this information is protected by the Federal Confidentiality of Alcohol and Drug Abuse Patient Records regulations: The Federal rules restrict any use of the information to criminally investigate or prosecute any alcohol or drug abuse patient.[facility] HospitalIn the event this information is protected by the Federal Confidentiality of Alcohol and Drug Abuse Patient Records regulations: The Federal rules restrict any use of the information to criminally investigate or prosecute any alcohol or drug abuse patient.[facility] HospitalIn the event this information is protected by the Federal Confidentiality of Alcohol and Drug Abuse Patient Records regulations: The Federal rules restrict any use of the information to criminally investigate or prosecute any alcohol or drug abuse patient.[facility] HospitalIn the event this information is protected by the Federal Confidentiality of Alcohol and Drug Abuse Patient Records regulations: The Federal rules restrict any use of the information to criminally investigate or prosecute any alcohol or drug abuse patient.[facility] HospitalIn the event this information is protected by the Federal Confidentiality of Alcohol and Drug Abuse Patient Records regulations: The Federal rules restrict any use of the information to criminally investigate or prosecute any alcohol or drug abuse patient.[facility] HospitalIn the event this information is protected by the Federal Confidentiality of Alcohol and Drug Abuse Patient Records regulations: The Federal rules restrict any use of the information to criminally investigate or prosecute any alcohol or drug abuse patient.[facility] HospitalIn the event this information is protected by the Federal Confidentiality of Alcohol and Drug Abuse Patient Records regulations: The Federal rules restrict any use of the information to criminally investigate or prosecute any alcohol or drug abuse patient.[facility] HospitalIn the event this information is protected by the Federal Confidentiality of Alcohol and Drug Abuse Patient Records regulations: The Federal rules restrict any use of the information to criminally investigate or prosecute any alcohol or drug abuse patient.[facility] HospitalIn the event this information is protected by the Federal Confidentiality of Alcohol and Drug Abuse Patient Records regulations: The Federal rules restrict any use of the information to criminally investigate or prosecute any alcohol or drug abuse patient.[facility] HospitalIn the event this information is protected by the Federal Confidentiality of Alcohol and Drug Abuse Patient Records regulations: The Federal rules restrict any use of the information to criminally investigate or prosecute any alcohol or drug abuse patient.[facility] HospitalIn the event this information is protected by the Federal Confidentiality of Alcohol and Drug Abuse Patient Records regulations: The Federal rules restrict any use of the information to criminally investigate or prosecute any alcohol or drug abuse patient.[facility] HospitalIn the event this information is protected by the Federal Confidentiality of Alcohol and Drug Abuse Patient Records regulations: The Federal rules restrict any use of the information to criminally investigate or prosecute any alcohol or drug abuse patient.[facility] HospitalIn the event this information is protected by the Federal Confidentiality of Alcohol and Drug Abuse Patient Records regulations: The Federal rules restrict any use of the information to criminally investigate or prosecute any alcohol or drug abuse patient.[facility] HospitalIn the event this information is protected by the Federal Confidentiality of Alcohol and Drug Abuse Patient Records regulations: The Federal rules restrict any use of the information to criminally investigate or prosecute any alcohol or drug abuse patient.[facility] HospitalIn the event this information is protected by the Federal Confidentiality of Alcohol and Drug Abuse Patient Records regulations: The Federal rules restrict any use of the information to criminally investigate or prosecute any alcohol or drug abuse patient.[facility] HospitalIn the event this information is protected by the Federal Confidentiality of Alcohol and Drug Abuse Patient Records regulations: The Federal rules restrict any use of the information to criminally investigate or prosecute any alcohol or drug abuse patient.[facility] HospitalIn the event this information is protected by the Federal Confidentiality of Alcohol and Drug Abuse Patient Records regulations: The Federal rules restrict any use of the information to criminally investigate or prosecute any alcohol or drug abuse patient.[facility] HospitalIn the event this information is protected by the Federal Confidentiality of Alcohol and Drug Abuse Patient Records regulations: The Federal rules restrict any use of the information to criminally investigate or prosecute any alcohol or drug abuse patient.[facility] HospitalIn the event this information is protected by the Federal Confidentiality of Alcohol and Drug Abuse Patient Records regulations: The Federal rules restrict any use of the information to criminally investigate or prosecute any alcohol or drug abuse patient.[facility] HospitalIn the event this information is protected by the Federal Confidentiality of Alcohol and Drug Abuse Patient Records regulations: The Federal rules restrict any use of the information to criminally investigate or prosecute any alcohol or drug abuse patient.[facility] HospitalIn the event this information is protected by the Federal Confidentiality of Alcohol and Drug Abuse Patient Records regulations: The Federal rules restrict any use of the information to criminally investigate or prosecute any alcohol or drug abuse patient.[facility] HospitalIn the event this information is protected by the Federal Confidentiality of Alcohol and Drug Abuse Patient Records regulations: The Federal rules restrict any use of the information to criminally investigate or prosecute any alcohol or drug abuse patient.[facility] HospitalIn the event this information is protected by the Federal Confidentiality of Alcohol and Drug Abuse Patient Records regulations: The Federal rules restrict any use of the information to criminally investigate or prosecute any alcohol or drug abuse patient.[facility] HospitalIn the event this information is protected by the Federal Confidentiality of Alcohol and Drug Abuse Patient Records regulations: The Federal rules restrict any use of the information to criminally investigate or prosecute any alcohol or drug abuse patient.[facility] HospitalIn the event this information is protected by the Federal Confidentiality of Alcohol and Drug Abuse Patient Records regulations: The Federal rules restrict any use of the information to criminally investigate or prosecute any alcohol or drug abuse patient.[facility] HospitalIn the event this information is protected by the Federal Confidentiality of Alcohol and Drug Abuse Patient Records regulations: The Federal rules restrict any use of the information to criminally investigate or prosecute any alcohol or drug abuse patient.[facility] HospitalIn the event this information is protected by the Federal Confidentiality of Alcohol and Drug Abuse Patient Records regulations: The Federal rules restrict any use of the information to criminally investigate or prosecute any alcohol or drug abuse patient.[facility] HospitalIn the event this information is protected by the Federal Confidentiality of Alcohol and Drug Abuse Patient Records regulations: The Federal rules restrict any use of the information to criminally investigate or prosecute any alcohol or drug abuse patient.[facility] HospitalIn the event this information is protected by the Federal Confidentiality of Alcohol and Drug Abuse Patient Records regulations: The Federal rules restrict any use of the information to criminally investigate or prosecute any alcohol or drug abuse patient.[facility] HospitalIn the event this information is protected by the Federal Confidentiality of Alcohol and Drug Abuse Patient Records regulations: The Federal rules restrict any use of the information to criminally investigate or prosecute any alcohol or drug abuse patient.[facility] HospitalIn the event this information is protected by the Federal Confidentiality of Alcohol and Drug Abuse Patient Records regulations: The Federal rules restrict any use of the information to criminally investigate or prosecute any alcohol or drug abuse patient.[facility] HospitalIn the event this information is protected by the Federal Confidentiality of Alcohol and Drug Abuse Patient Records regulations: The Federal rules restrict any use of the information to criminally investigate or prosecute any alcohol or drug abuse patient.[facility] HospitalIn the event this information is protected by the Federal Confidentiality of Alcohol and Drug Abuse Patient Records regulations: The Federal rules restrict any use of the information to criminally investigate or prosecute any alcohol or drug abuse patient.[facility] HospitalIn the event this information is protected by the Federal Confidentiality of Alcohol and Drug Abuse Patient Records regulations: The Federal rules restrict any use of the information to criminally investigate or prosecute any alcohol or drug abuse patient.[facility] HospitalIn the event this information is protected by the Federal Confidentiality of Alcohol and Drug Abuse Patient Records regulations: The Federal rules restrict any use of the information to criminally investigate or prosecute any alcohol or drug abuse patient.[facility] HospitalIn the event this information is protected by the Federal Confidentiality of Alcohol and Drug Abuse Patient Records regulations: The Federal rules restrict any use of the information to criminally investigate or prosecute any alcohol or drug abuse patient.[facility] the event this information is protected by the Federal Confidentiality of Alcohol and Drug Abuse Patient Records regulations: The Federal rules restrict any use of the information to criminally investigate or prosecute any alcohol or drug abuse patient.[facility] HospitalIn the event this information is protected by the Federal Confidentiality of Alcohol and Drug Abuse Patient Records regulations: The Federal rules restrict any use of the information to criminally investigate or prosecute any alcohol or drug abuse patient.[facility] HospitalIn the event this information is protected [...] or prosecute any alcohol or drug abuse patient.[facility] HospitalIn the event this information is protected by the Federal Confidentiality of Alcohol and Drug Abuse Patient Records regulations: The Federal rules restrict any use of the information to criminally investigate or prosecute any alcohol or drug abuse patient.[facility] Care Teams (unrecognized sec tion and [...] DateEnd Date Gabino Owen MD PCP - [facility] Medicine11/10/20Team MemberRelationshipSpecialtyStart DateEnd Date Gabino Owen MD PCP - [facility] Medicine11/10/20Team MemberRelationshipSpecialtyStart DateEnd Date Gabino Owen MD PCP - [facility] Medicine11/10/20 Team Status: Inactive Member Role Status Dates Analia Holliday , DAVID Primary Care Provider, Attending Provider Active Team MemberRelationshipSpecialtyStart DateEnd Date Analia Holliday, BLIND HANGER [address] [place] [phone] [facility] - [facility] Gjnnfnoq44/15/23Team MemberRelationshipSpecialtyStart Date End Date Analia Holliday, BLIND HANGER [address] [place] [address] PCP - [facility] Bywqlyym34/15/23Team MemberRelationshipSpecialtyStart Date End Date Analia Holliday, BLIND HANGER [address] [place] [address] PCP - Generalmily Opscnadh49/15/23Team MemberRelationshipSpecialtyStart Date End Date Analia Holliday, BLIND HANGER [address] [place] [address] [facility] Qzhyldjp50/15/23Team MemberRelationshipSpecialtyStart Date End Date Analia Holliday, BLIND HANGER [address] [place] [address] PCP - [facility]06/06/23Team MemberRelationshipSpecialtyStart Date End Date Analia Holliday, BLIND HANGER [address] [place] [address] PCP - [facility] Rjtiyote34/15/23am MemberRelationshipSpecialtyStart Date End Date Analia Holliday, BLIND HANGER [address] [place] [address] PCP - [facility] Isydqrmc12/15/23am MemberRelationshipSpecialtyStart Date End Date Analia Holliday, BLIND HANGER [address] [place] [phone] PCP - [facility] Kskgkwjl31/15/23Team MemberRelationshipSpecialtyStart Date End Date Analia Holliday, BLIND HANGER [address] [place] [address] [facility] Vmcollsv05/15/23Team MemberRelationshipSpecialtyStart Date End Date Analia Holliday, BLIND HANGER [address] [place] [address] PCP - [facility]06/06/23Team MemberRelationshipSpecialtyStart Date End Date Analia Holliday, BLIND HANGER [address] [place] [address] PCP [facility]06/06/23Team MemberRelationshipSpecialtyStart Date End Date Analia Holliday, BLIND HANGER [address] [place] [address] [facility]06/06/23Team MemberRelationshipSpecialtyStart Date End Date Analia Holliday, BLIND HANGER [address] [place] [address] [facility]06/06/23 Team Status: Active Member Role Status Dates Analia Holliday DNP Primary Care Provider Active Start: December 27, 2023 Dara Butler DOAttending ProviderActiveStart: December 27, 2023 Team Status: Inactive Member Role Status Dates Ana Bolton DO Attending Provider Active Start: January 01, 2024 End: January 01, 2024Team MemberRelationshipSpecialtyStart DateEnd Date Analia Holliday, BLIND HANGER [address] [place] [phone] [facility]06/06/23 Team Status: Active Member Role Status Dates Analia Dennis APRN BELT LOOP MACHINE OPERATOR-C Primary Care Provider Active Team Status: Inactive Member Role Status Dates Analia Dennis APRN BELT LOOP MACHINE OPERATOR-C Primary Care Provider, Attending Provider Active Start: March 19, 2024 End: March 19, 2024Team MemberRelationshipSpecialtyStart DateEnd Date Analia Holliday, BLIND HANGER [address] [place] [address] PCP - GeneralFamily Shbunpck40/15/23Team MemberRelationshipSpecialtyStart Date End Date Gabino Owen MD PCP - GeneralFamily Medicine11/10/2110/Team MemberRelationshipSpecialtyStart DateEnd Date Analia Holliday, BLIND HANGER [address] [place] [address] PCP - GeneralFamily Gzyfyegb62/15/23Team MemberRelationshipSpecialtyStart Date End Date Analia Holliday, BLIND HANGER [address] [place] [address] PCP - GeneralFamily Ojlcffmh19/15/23Team MemberRelationshipSpecialtyStart Date End Date Analia Holliday, BLIND HANGER [address] [place] [address] PCP - GeneralFamily Jlaxpuqv42/15/23Team MemberRelationshipSpecialtyStart Date End Date Analia Holliday, BLIND HANGER [address] [place] [address] PCP - GeneralFamily Rfkemolv97/15/23Team MemberRelationshipSpecialtyStart Date End Date Jennifer Frazier MD [address] [place] [address] PCP - GeneralFamily Gkgpxlbk12/20/24Team MemberRelationshipSpecialtyStart Date End Date Kyree Stinson MD [address] [place] [phone] (Fax) PCP - GeneralFamily Medicine12/13/22 Kyree Stinson MD [address] [place] [address] (Fax) PCP - [facility] [employer]11/20/22Team MemberRelationshipSpecialtyStart DateEnd Date Kyree Stinson MD [address] [place] [address] (Fax) PCP - GeneralFamily Medicine12/13/22 Kyree Stinson MD [address] [place], [place] [address] [address] (Fax) PCP - [facility] [employer]11/20/22Team MemberRelationshipSpecialtyStart DateEnd Date Kyree Stinson MD [address] [place] [phone] (Fax) PCP - GeneralFamily Medicine12/13/22 Kyree Stinson MD [address] [place] [phone] (Fax) PCP - [facility] [employer]11/20/22Team MemberRelationshipSpecialtyStart DateEnd Date Jennifer Frazier MD [address] [place] [phone] PCP - GeneralFamily Npwpcnqt35/20/24Team MemberRelationshipSpecialtyStart Date End Date Kyree Stinson MD [address] [place] [address] (Fax) PCP - GeneralFamily Medicine12/13/22 Kyree Stinson MD [address] [place] [address] (Fax) PCP - [facility] [employer]11/20/22Team MemberRelationshipSpecialtyStart DateEnd Date Kyree Stinson MD [address] [facility] [address] [place] [address] (Fax) [facility] - [facility]12/13/22 Kyree Stinson MD [address] [facility] [address] [place] [address] (Fax) PCP - [facility]11/20/22Team MemberRelationshipSpecialtyStart DateEnd Date Jennifer Frazier MD [address] [place] [address] PCP - [facility] Thptrtmr25/20/24Team MemberRelationshipSpecialtyStart Date End Date Jennifer Frazier MD [address] [place] [address] PCP - [facility]06/11/24 Team Status: Active Member Role Status Dates Analia Dennis APRN BELT LOOP MACHINE OPERATOR-Paola Attending Provider Act [place] Start: June 25, 2024 Wes Grey Care ProviderActiveStart: June 25, 2024 Team Status: Active Member Role Status Dates Hayley Jewell DO Primary Care Provider Active Start: June 27, 2024 Sridevi Chamberlain ProviderActiveStart: June 27, 2024 Team Status: Active Member Role Status Dates Analia Dennis APRN BELT LOOP MACHINE OPERATOR-C Attending Provider Act [place] Start: June 30, 2024 Wes Grey Care ProviderActiveStart: June 30, 2024 Team Status: Inactive Member Role Status Dates Analia Rohrbacher , RAILCAR SWITCHMAN BELT LOOP MACHINE OPERATOR-C Primary Care Provider, Attending Provider Active Start: July 08, 2024 End: July 08, 2024 Team Status: Active Member Role Status Dates Analia Dennis APRN BELT LOOP MACHINE OPERATOR-C Primary Care Provider, Attending Provider Active Start: July 09, 2024 Team Status: Active Member Role Status Dates Analia Dennis APRN BELT LOOP MACHINE OPERATOR-C Primary Care Provider Active Start: July 112023 Marshall Bolden , DOAttending ProviderActiveStart: July 11, 2024 Team Status: Active Member Role Status Dates Analia Dennis APRN BELT LOOP MACHINE OPERATOR-C Primary Care Provider Active Start: July 142023 Shadia Encarnacion , CMAAttending ProviderActiveStart: July 14, 2024 Team Status: Active Member Role Status Dates Analia Dennis APRN BELT LOOP MACHINE OPERATOR-C Primary Care Provider Active Start: July 152023 Naebriana Hall ProviderActiveStart: July 15, 2024 Team Status: Inactive Member Role Status Dates Analia Dennis APRN BELT LOOP MACHINE OPERATOR-C Primary Care Provider, Attending Provider Active Start: July 24, 2024 End: July 24, 2024 Team Status: Inactive Member Role Status Dates Analia Dennis APRN BELT LOOP MACHINE OPERATOR-C Attending Provider Act [place] Start: July 24, 2024 End: July 24, 2024Team MemberRelationshipSpecialtyStart DateEnd Date Jennifer Frazier MD [address] [place] [phone] [facility] - [facility] Ojeyupmt71/20/24Team MemberRelationshipSpecialtyStart Date End Date Jennifer Frazier MD [address] [place] [address] [facility] - [facility] Zozsdblw73/20/24Team MemberRelationshipSpecialtyStart Date End Date Jennifer Frazier MD [address] [place] [phone] PCP - GeneralFamily Xftmesho26/20/24 Team Status: Inactive Member Role Status Dates Paula Alberts DO Attending Provider Active Sta rt: October 24, 2024 End: October 24, 2024Analia Dennis APRN BELT LOOP MACHINE OPERATOR-CPrimary Care ProviderActive Start: October 24, 2024 End: October 24, 2024 Team Status: Active Member Role Status Dates Analia Dennis APRN BELT LOOP MACHINE OPERATOR-C Primary Care Provider Active Start: November 04, 2024 Keanu Koo MDAttending ProviderActiveStart: November 04, 2024 Team Status: Active Member Role Status Dates Analia Dennis APRN BELT LOOP MACHINE OPERATOR-C Primary Care Provider Active Start: November 05, 2024 Sridevi Chamberlain ProviderActiveStart: November 05, 2024 Team Status: Inactive Member Role Status Dates Analia Dennis APRN BELT LOOP MACHINE OPERATOR-C Primary Care Provider, Attending Provider Active Start: November 12, 2024 End: November 12, 2024Team MemberRelationshipSpecialtyStart DateEnd Date Paula Alberts DO [address] [place] [phone] PCP - GeneralInternal Medicine03/10/25Team MemberRelationshipSpecialtyStart Date End Date Paula Alberts DO [address] [place] [address] PCP - GeneralInternal Medicine03/10/25Team MemberRelationshipSpecialtyStart Date End Date Paula Alberts DO [address] [place] [address] PCP - GeneralInternal Medicine03/10/25 Goals [...] BE BASED ON THE PRIMARY CLINICAL RECORDS. [facility]. provides no warranty or guarantee of the accuracy or completeness of information in this document.
== END 2025-06-22 07:40 | disposition home or self-care (01) ==
LOC: LAB 07:40
PROVIDERS: PCP Nurse Practitioner Family; Visit Provider Obstetrics & Gynecology
DX: Z32.01 Encounter for pregnancy test, result positive (principal); N92.6 Irregular menstruation, unspecified
CPT/HCPCS: 36415; 84702

== ENCOUNTER 2025-06-24 07:35 | Outpatient (OUT) | payer BC, SELFPAY ==
--- OUTSIDE RECORDS SUMMARY | 2025-06-24 07:41 | XMS_ITS | Clinical Summary ---
Author Organization [facility] Address [address] [place] [address] Care Team Providers Care Office Correspondent Name Role Phone Kyree Stinson MD Primary Care Provider [phone] Allergies Active AllergyReactionsCriticalityNoted DateCommentsMetronidazoleAnxiety, Diarrhea,Dizziness,Nausea Only,Palpitations,Rash,Shortness of [...] Problems ProblemNoted DateDiagnosed DateLong-term use of high-risk esgketdxky41/24/2024 Upper back pain07/15/20244696Fzdafkomio76/25/2278Dxaleugmyplw99/25/2024enal vein yprkwinr59/28/2023yst of left ovary01/24/20230114Gqnazwx25/05/2023Menstrual vkgpcosa56/05/2869Yxjswoating96/05/2023Pain due to genitourinary prosthetic devices, implants and grafts, initial geuytclgh20/05/2023bnormal findings on imaging test12/08/20221782Vhgqivduoaatfzyg09/19/2023ile reflux rytinyfnn23/11/2022 Allergy to food05/02/2022nxiety about pxohet5605/02/2022ody mass index (BMI) of 20 to 2418986Psbktosuko25/11/2022Altered bowel lahdakmn81/11/2022Lower abdominal pain05/02/2022Generalized anxiety zhqoxibs74/11/2022Irritable bowel syndrome with duilxqxc44/11/5429Wfvyyc26/11/0840Cdydxfuplif88/11/2022hronic qsvcoxt89/20/2022Recurrent /20/0996Tonvoxaoc49/20/2022lostridium difficile jgevzqp6910/28/2021 Resolved Problems ProblemNoted DateDiagnosed DateResolved EoakSjkupjvxhbu89 Chronic left shoulder pain/hronic pain of left knee Immunizations ImmunizationAdministration DatesNext HhtMUvK7101/27/2004DTaP, Unspecified 05/21/2000,05/16/1999,03/18/1999,01/14/1999HPV, Izeescdtmupu72/01/2011, 02/07/2011Hep B, Adolescent or Jbjmwmjrn92/25/1999,01/14/1999,1998HiB, gwrfsuhjkyv44/02/2000,05/16/1999,03/18/1999,01/14/1999IPV01/27/2004MMR01/27/2004 ,02/22/2000Meningococcal YON5B2802/07/2011Pneumococcal Conjugate PCV Polio, Pkltxonqmyt04/02/2000,05/16/1999,03/18/1999,01/14/1999Tdap02/07/2011 Unspecified Sars-Cov-2 Erunqputqau40/15/2021,04/06/2021,03/16/2021,03/16/2021 Aidsfnhgr17/07/2010,02/07/2011,11/24/1999 Social History Tobacco UseTypesPacks/DayYears UsedDateSmoking Tobacco: NeverSmokeless [...] partner or ex-partner?No07/28/2024PHQ-2 AnswerDate RecordedPatient Health Questionnaire-2 Zwtru514UT Safety & EnvironmentAnswerDate RecordedFear of Current or Ex-PartnerNot on file09/13/2023 Emotionally AbusedNot on file09/13/2023hysically AbusedNot on file09/13/2023 Sexually AbusedNot on file4Physically or Sexually AbusedNot on file 09/13/2023CommentsNoSex and Gender InformationValueDate RecordedSex Assigned at JlqigPxrrrl34/07/2023 9:41 PM ESTLegal NeaIamspo71/30/2022 12:44 AM EDTGender FevuxonkNgrbgt35/07/2023 9:41 PM ESTSexual OrientationNot on file Last Filed Vital Signs Vital SignReadingTime TakenCommentsBlood Rolexzwh177/63007/28/2024 2:22 PM EST Coomw963307/28/2024 2:22 PM NPLUlmcxhkbmor07.4 ??C (97.5 ??F)08/15/2022 10:15 AM ESTRespiratory Ijpv128408/15/2022 12:00 PM ESTOxygen Pldoindfoo517%08/15/2022 12:00 PM ESTInhaled Oxygen Concentration--Zxsobe15.2 kg (115 lb)07/28/2024 2:22 PM YYLVlpcbr589.6 cm (5' 4 )07/28/2024 2:22 PM ESTBody Mass Index19.7407/28/2024 2:22 PM EST Plan of Treatment Health MaintenanceDue DateLast DoneCommentsHPV Vaccines (3 - 2-dose series) , 02/07/2011Pap Smear11/18/2019Adult Zecelmo2811/17/2020 02/07/2011COVID-19 Vaccine ( season), 04/06/2021, 04/06/2021, Additional history existsInfluenza Vaccine (#1)03/23/2025Depression Ivnuvcegw79/06/027939/12/2024Zoster Vaccines (1 of 2)911/07/2010, 02/07/2011, 11/24/1999HIB JzdmlsgrRhiafocgq01/02/2000, 05/16/1999, 03/18/1999, Additional history existsPneumococcal Vaccine: Pediatrics (0 to 5 Years) and At- Risk Patients (6 to 64 Years)Aged Out05/21/2000No longer eligible based on patient's age to complete this topicIPV UyrckfqrUtxkdnwiz03/07/2004, 02/22/2000, 05/16/1999, Additional history existsMeningococcal VaccineAged Out02/07/2011No longer eligible based on patient's age to complete this topicVaricella Vaccines Wlacjccgc57/01/2011, 02/07/2011, 11/24/1999Meningococcal B VaccineAged OutNo longer eligible based on patient's age to complete this topicRotavirus Vaccines Aged OutNo longer eligible based on patient's age to complete this topic Insurance Care Teams Team MemberRelationshipSpecialtyStart DateEnd Date Kyree Stinson MD [address], [place] [phone] [facility]09/20/22
--- OUTSIDE RECORDS SUMMARY | 2025-06-24 07:41 | XMS_ITS | Encounter Summary ---
Author Organization [facility] Address [address] [facility] [place] [address] Care Team Providers Care Retort Furnace Helper Name Role Phone Zenon Alberts DO Primary Care Provider [phone] Encounter Details DateTypeDepartmentCare Team (Latest Contact Info)Vwzlljleeqf82/28/2025linisync Result Encounter [facility] Unsolicited Jeremiah Burroughs DO [address] [place], [facility]11 Social History Tobacco UseTypesPacks/DayYears UsedDateSmoking Tobacco: NeverAlcohol UseStandard Drinks/WeekCommentsYes2 (1 standard drink = 0.6 oz pure alcohol)1-2 drinks/monthly or lessCommentsNoSex and Gender InformationValueDate RecordedSex Assigned at HxxutVlfvvr19/23/2023 3:49 PM EDTLegal SexFemale 10/04/2022 11:08 PM EDTGender SmhguvepIyrogf97/23/2023 3:49 PM EDTSexual OrientationNot on filedocumented as of this encounter Plan of Treatment DateTypeDepartmentCare Team (Latest Contact Info)Qgvmdqcnxtr32/19/2025 10:30 AM ESTAncillary Procedure [facility] [address] [place] [address] 07/10/2025 11:00 AM ESTInitial [facility] [address] [facility] [place] [address] documented as of this encounter Procedures Procedure NamePriorityDate/TimeAssociated DiagnosisCommentsTBH PREG QUANT HCG Qgliwnu7706/19/2025 7:33 AM EST documented in this encounter Results * TBH PREG QUANT HCG (06/19/2025 7:33 AM EST)ComponentValueRef RangeTest Method Analysis TimePerformed AtPathologist SignatureHCG FWJDUNZLMXUR583sEZ/mLTBH Comment: 5-50 ? 0.2-1 WEEK 50-500 ? 1-2 WEEKS 100-5,000 ?2-3 WEEKS 500-10,000 ? 3-4 WEEKS 1,000-50,000 ?? 4-5 WEEKS 10,000-100,000 5-6 WEEKS 15,000-200,000 6-8 WEEKS 10,000-100,000 2-3 MONTHS Specimen (Source)Anatomical Location / LateralityCollection Method / Volume Collection TimeReceived Time06/19/2025 7:33 AM EST06/19/2025 7:34 AM EST Narrative [facility] - 06/19/2025 8:06 AM EST Authorizing ProviderResult TypeResult StatusCorey Heike DOCLINISYNCFinal Result Performing OrganizationAddressCity/State/ZIP CodePhone Number [facility] documented in this encounter Visit Diagnoses Not on filedocumented in this encounter Care Teams Team MemberRelationshipSpecialtyStart DateEnd Date Zenon Alberts DO [address] [place] [phone] PCP - GeneralInternal Medicine03/10/25documented as of this encounter
--- OUTSIDE RECORDS SUMMARY | 2025-06-24 07:41 | XMS_ITS | Clinical Summary ---
Author Organization [facility] Healthcare Address [address] [place] [address] Care Team Providers Care Authorization Rep Name Role Phone Zenon Alberts DO Primary Care Provider [phone] Allergies Active AllergyReactionsCriticalityNoted ZmhoTmfmawaaYnwtymsjlzdfd32/23/2023 Medications MedicationSigDispense QuantityRefillsLast FilledStart DateEnd DateStatus escitalopram (Lexapro) 10 MG tablet Take 5 mg by mouth in the morning.Active dicyclomine (Bentyl) 10 MG capsule Take 10 mg by mouth Daily as lwcqtn274Active Active Problems ProblemNoted DateDiagnosed DateRenal vein /28/2023yst of left ovary 01/24/20235338Qaqojkv61/05/2023Menstrual /05/2023Miscarriage ([facility]) 01/24/2023ain due to genitourinary prosthetic devices, implants and grafts, initial ibyvxsgup60/05/2023bnormal findings on imaging test12/08/2022ilateral arm pain12/08/20223338Ttxyqsfcfxarxqge60/19/2023llergy to food05/02/2022ltered bowel hlmtqwke51/11/2022nxiety about zfldyj3905/02/2022ile reflux gastritis 05/02/20225595Zrhpzjecbf98/11/2022Generalized anxiety ivpclnsj90/11/2022Irritable bowel syndrome with zcedqtfh59/11/2022Lower abdominal pain05/02/2022Nausea 05/02/20228502Hrhmmfwghhf81/11/7592Phlnxwfikys85/20/2022hronic rvqnqmp2312/09/2021 Chronic pain of left knee2Recurrent vmnumdaham92/20/2022Urticaria 2Clostridium difficile xgzycrq1910/28/2021 Encounters DateTypeDepartmentCare VzwgSxxassbzhmt77/02/2025Telephone [facility] [address] [place] [phone] Yessi Mena LPN 06/22/2025linisync Result Encounter NOMS External Department Unsolicited Heike, Jeremiah, DO 5Clinisync Result Encounter NOMS External Department Unsolicited Heike, Jeremiah, DO 5Clinisync Result Encounter NOMS External Department Unsolicited Heike, Jeremiah, DO 06/16/2025Telephone [facility] [address] [place] [phone] Heike, Jeremiah, DO 5Clinisync Result Encounter [facility]OMS External Department Unsolicited Heike, Jeremiah, DO 03/30/2025Telephone [facility] [address] [place] [address] Luna Laguerre LPN from Last 3 Months Immunizations ImmunizationAdministration DatesNext FfjGVtL3601/27/2004DTaP, Unspecified 05/21/2000,05/16/1999,03/18/1999,01/14/1999HPV, Ohpdccdosumd02/01/2011, 02/07/2011Hep B, Adolescent or Unblefeja81/25/1999,01/14/1999,1998HiB, tksiuulkcrh45/02/2000,05/16/1999,03/18/1999,01/14/1999IPV01/27/2004MMR01/27/2004 ,02/22/2000Meningococcal OSR3C8502/07/2011Pneumococcal Conjugate PCV Polio, Uatnktmivwb27/02/2000,05/16/1999,03/18/1999,01/14/1999Tdap02/07/2011 Ydihzqirt67/01/2011,02/07/2011,11/24/1999 Family History Medical HistoryRelationNameCommentsNo Known ProblemsBrotherHypertensionFather Prostate cancerFatherCancerMaternal GrandfatherCancerMaternal GrandmotherStroke MotherNo Known ProblemsSister2 sistersRelationNameStatusCommentsBrotherFather AliveMaternal GrandfatherMaternal GrandmotherMotherAliveSisterx2 Social History Tobacco UseTypesPacks/DayYears UsedDateSmoking Tobacco: Never Tobacco Cessation:Counseling Given: Not Answered Alcohol UseStandard Drinks/WeekCommentsYes2 (1 standard drink = 0.6 oz pure alcohol)1-2 drinks/monthly or lessCommentsNoSex and Gender Information ValueDate RecordedSex Assigned at DdlqbZcojpi15/23/2023 3:49 PM EDTLegal Sex Jxtjxc3710/04/2022 11:08 PM EDTGender QronsxoaCmgnog10/23/2023 3:49 PM EDTSexual OrientationNot on file Last Filed Vital Signs Vital SignReadingTime TakenCommentsBlood Ubcdmais893/62003/24/2025 1:52 PM EDT Pulse--Temperature--Respiratory Rate--Oxygen Saturation--Inhaled Oxygen Concentration--Nzkuay93.3 kg (113 lb)03/24/2025 1:52 PM TBMClvyja810.6 cm (5' 4 )03/24/2025 1:52 PM EDTBody Mass Index19. 1:52 PM EDT Plan of Treatment DateTypeDepartmentCare Team (Latest Contact Info)Yzjwtiaqhvm83/19/2025 10:30 AM ESTAncillary Procedure [facility] [address] [place] [address] 07/10/2025 11:00 AM ESTInitial [facility] [address] [place] [address] Health MaintenanceDue DateLast DoneCommentsCOVID-19 Vaccine ( season) , 03/16/2021Influenza Vaccine (#1)2025Pneumococcal Vaccine: Pediatrics (0 to 5 Years) and At-Risk Patients (6 to 64 Years)Aged Out 05/21/2000No longer eligible based on patient's age to complete this topic Procedures Procedure NamePriorityDate/TimeAssociated DiagnosisCommentsTBH PREG QUANT HCG Mswpmer5006/22/2025 7:45 AM EST TBH PREG QUANT ZGWRyhbzvm25/28/2025 7:33 AM EST TBH PREG QUANT GKCQysjsjs58/26/2025 7:35 AM EST ALL CBC WITH AUTO WQVFPqiakat85/27/2025 10:10 AM EDT TBH PREG QUANT CDRJkeouos39/27/2025 10:10 AM EDT ALL THYROID STIM IZBFYOBSmlfusy66/27/2025 10:10 AM EDT MLR HEMOGLOBIN A5DSpziygy05/27/2025 10:10 AM EDT ALL THYROXINE (T4) YWTJLbqveny86/27/2025 10:10 AM EDT ALL FOLLICLE STIMULATING UBKMVJJPgblkre43/27/2025 10:10 AM EDT ALL LUTEINIZING VQIIJCROtmtedw06/27/2025 10:10 AM EDT from Last 3 Months Results * TBH PREG QUANT HCG (06/22/2025 7:45 AM EST) Only the most recent of4 resultswithin the time period is included. ComponentValueRef RangeTest MethodAnalysis TimePerformed AtPathologist Signature HCG QUANTITATIVE1,470mIU/mLTBHComment: 5-50 ? 0.2-1 WEEK 50-500 ? 1-2 WEEKS 100-5,000 ?2-3 WEEKS 500-10,000 ? 3-4 WEEKS 1,000-50,000 ?? 4-5 WEEKS 10,000-100,000 5-6 WEEKS 15,000-200,000 6-8 WEEKS 10,000-100,000 2-3 MONTHS Specimen (Source)Anatomical Location / LateralityCollection Method / Volume Collection TimeReceived Time06/22/2025 7:45 AM EST06/22/2025 7:47 AM EST Narrative CLINISYNC - 06/22/2025 9:00 AM EST Authorizing ProviderResult TypeResult StatusCorey Heike DOCLINISYNCFinal Result Performing OrganizationAddressCity/State/ZIP CodePhone Number [facility] * MLR HEMOGLOBIN A1C (04/18/2025 10:10 AM EDT)ComponentValueRef RangeTest Method Analysis TimePerformed AtPathologist SignatureGLYCOHEMOGLOBIN A1C5.14.5 - 6.2 %TBHComment: ADA RECOMMENDED LIMIT 4.0 - 6.0 ADA THERAPEUTIC TARGET < 7.0 ACTION SUGGESTED > 7.0 ESTIMATED AVERAGE YHJUKQN220hp/dLTBHSpecimen (Source)Anatomical Location / LateralityCollection Method / VolumeCollection TimeReceived Time04/18/2025 10:10 AM EDT04/18/2025 10:15 AM EDT Narrative CLINISYNC - 04/18/2025 12:03 PM EDT Authorizing ProviderResult TypeResult StatusCorey Heike DOCLINISYNCFinal Result Performing OrganizationAddressty/State/ZIP CodePhone Number [facility] * ALL THYROXINE (T4) FREE (04/18/2025 10:10 AM EDT)ComponentValueRef RangeTest MethodAnalysis TimePerformed AtPathologist SignatureFREE T40.970.76 - 1.46 ng/dLTBHSpecimen (Source)Anatomical Location / LateralityCollection Method / VolumeCollection TimeReceived Time04/18/2025 10:10 AM EDT04/18/2025 10:15 AM EDT Narrative CLINISYNC - 04/18/2025 12:15 PM EDT Authorizing ProviderResult TypeResult StatusCorey Heike DOCLINISYNCFinal Result Performing OrganizationAddWellSpan Waynes[facility] Hospitalty/State/ZIP CodePhone Number [facility] * ALL THYROID STIM HORMONE (04/18/2025 10:10 AM EDT)ComponentValueRef RangeTest MethodAnalysis TimePerformed AtPathologist SignatureTHYROID STIMULATING HORMONE1.1060.358 - 3.740 uIU/mLTBHSpecimen (Source)Anatomical Location / LateralityCollection Method / VolumeCollection TimeReceived Time04/18/2025 10:10 AM EDT04/18/2025 10:15 AM EDT Narrative CLINISYNC - 04/18/2025 12:15 PM EDT Authorizing ProviderResult TypeResult StatusCorey Heike DOCLINISYNCFinal Result Performing OrganizationAddressty/State/ZIP CodePhone Number CLINISYNC [facility]H * ALL LUTEINIZING [...] - 134.8 Performed at: ??CB - [facility] [address] ??[id number] [employer]: Kai Schuster PhD, Phone: ??[phone] Specimen (Source)Anatomical Location / LateralityCollection Method / Volume Collection TimeReceived Time04/18/2025 10:10 AM EDT04/18/2025 10:15 AM EDT Narrative CLINISYNC - 04/19/2025 7:09 AM EDT Authorizing ProviderResult TypeResult StatusCorey Heike DOCLINISYNCFinal Result Performing OrganizationAddressCity/State/ZIP CodePhone Number CLINISYNC [facility] * (ABNORMAL) ALL CBC WITH AUTO DIFF (04/18/2025 10:10 AM EDT)ComponentValueRef RangeTest MethodAnalysis TimePerformed AtPathologist SignatureTBH WBC4.84.0 - 11.0 10 3/uLTBHTBH RBC4.594.20 - 5.40 10 6/uLTBHTBH HGB14.612.0 - 16.0 g/dLTBH TBH HCT42.836.0 - 48.0 %TBHTBH MCV93.281.0 - 99.0 fLTBHTBH MCH31.826.7 - 34.0 pgTBHTBH MCHC34.129.9 - 35.2 g/dLTBHTBH RDW11.411.0 - 15.0 %TBHTBH HQE646502 - 450 10 3/uLTBHTBH MPV11.09.5 - 13.5 [...] DateEnd Date Zenon Alberts DO [address] [place] [phone] PCP - GeneralInternal Medicine03/10/25
--- OUTSIDE RECORDS SUMMARY | 2025-06-24 07:41 | XMS_ITS | Clinical Summary ---
Author Organization [facility] Address [address] [place] [address] Phone Care Team Providers Care Puppy Walker Name Role Phone Unavailable Primary Care Provider Unavailabl e Allergies Active AllergyReactionsCriticalityNoted LygjCwccyucjSbzjcpcblkzdwJtzbm83/25/2024 Medications MedicationSigDispense QuantityRefillsLast FilledStart DateEnd DateStatus dicyclomine (Bentyl) 10 mg capsule Take 1 capsule (10 mg) by mouth once daily as needed.11/29/2023ctive escitalopram (Lexapro) 10 mg tablet Take 0.5 tablets (5 mg) by mouth once daily.11/29/2023ctive ondansetron ODT (Zofran-ODT) 4 mg disintegrating tablet Take 1 tablet (4 mg) by mouth every 6 hours if needed.12/28/2023ctive Active Problems ProblemNoted DateDiagnosed OtqkXzaaqblndx01/25/2024 Social History Tobacco UseTypesPacks/DayYears UsedDateSmoking Tobacco: NeverSmokeless [...] on one occasion?Never02/05/2024HQ-2 AnswerDate RecordedPatient Health Questionnaire-2 Liyhj720 CommentsNoSex and Gender InformationValueDate RecordedSex Assigned at Zawxpp2101/30/2024 9:51 AM EDTLegal TfaAfrqaw19/04/2024 8:24 AM EDTGender Identity Babryh8401/30/2024 9:51 AM EDTSexual LayfcdpzspzFdoczbjo80/10/2024 9:51 AM EDT Last Filed Vital Signs Vital SignReadingTime TakenCommentsBlood Zegnpqcj90/6409 10:51 AM EDT Qvcid9443 10:51 AM ROSZfhzrgxbhof73.2 ??C (97.2 ??F)04/16/2024 10:21 AM EDTRespiratory Uqef521704/16/2024 10:51 AM EDTOxygen Boekbnhlyg037%04/16/2024 10:51 AM EDTInhaled Oxygen Concentration--Bzrrqz02.2 kg (115 lb)04/16/2024 8:23 AM BWOVjutjk025.6 cm (5' 4 )04/16/2024 8:23 AM EDTBody Mass Index19.7404/16/2024 8:23 AM EDT Plan of Treatment Health MaintenanceDue DateLast DoneCommentsHIV Jhfdexaqb23/28/1999Lipid Panel 1998HPV Vaccines (3 - 2-dose series), 02/07/2011 Hepatitis C Xllrtwzkg23/28/2017Cervical Cancer Kigsaxbcn41/28/2020HPV/Cotest 11/18/2019Pap Smear11/18/2019DTaP/Tdap/Td Vaccines (7 - Td or Tdap)02/07/2021 02/07/2011, 01/27/2004, 05/21/2000, Additional history existsYearly Adult Gvxzrrzf70/16/825411/, 05/24/2023Influenza Vaccine (#1)5COVID-19 Vaccine ( season), 03/16/2021Zoster Vaccines (1 of 2)911/07/2010, 02/07/2011, 11/24/1999Hepatitis B VaccinesCompleted 05/16/1999, 01/14/1999, 1998HIB MuhlzohuIjccpwrhq81/02/2000, 05/16/1999, 03/18/1999, Additional history existsPneumococcal Vaccine: Pediatrics and At- Risk Adult PatientsAged Out05/21/2000No longer eligible based on patient's age to complete this topicIPV HucufkfdZbservmzz96/07/2004, 02/22/2000, 05/16/1999, Additional history existsMMR ZuwtcykfHiakzczwk56/07/2004, 02/22/2000 Meningococcal VaccineAged Out02/07/2011No longer eligible based on patient's age to complete this topicHepatitis A VaccinesAged OutNo longer eligible based on patient's age to complete this topicRotavirus VaccinesAged OutNo longer eligible based on patient's age to complete this topic Insurance
--- OUTSIDE RECORDS SUMMARY | 2025-06-24 07:41 | XMS_ITS | Encounter Summary ---
Author Organization [facility] Address [address] [facility] [place] [address] Care Team Providers Care Aerial Planting And Cultivation Manager Name Role Phone Zenon Alberts DO Primary Care Provider [phone] Encounter Details DateTypeDepartmentCare Team (Latest Contact Info)Dzcqpnoxoic52/01/2025linisync Result Encounter [facility] External Department Unsolicited Jeremiah Burroughs DO [address] [place], [facility]11 Social History Tobacco UseTypesPacks/DayYears UsedDateSmoking Tobacco: NeverAlcohol UseStandard Drinks/WeekCommentsYes2 (1 standard drink = 0.6 oz pure alcohol)1-2 drinks/monthly or lessCommentsNoSex and Gender InformationValueDate RecordedSex Assigned at SvluoQitshn76/23/2023 3:49 PM EDTLegal SexFemale 10/04/2022 11:08 PM EDTGender FxqpamakGneyff28/23/2023 3:49 PM EDTSexual OrientationNot on filedocumented as of this encounter Plan of Treatment DateTypeDepartmentCare Team (Latest Contact Info)Uaywohhuweg56/19/2025 10:30 AM ESTAncillary Procedure [facility] [address] [place] [address] 07/10/2025 11:00 AM ESTInitial [facility] [address] [facility] [place] [address] documented as of this encounter Procedures Procedure NamePriorityDate/TimeAssociated DiagnosisCommentsTBH PREG QUANT HCG Uydqcyk9406/22/2025 7:45 AM EST documented in this encounter Results * TBH PREG QUANT HCG (06/22/2025 7:45 AM EST)ComponentValueRef RangeTest Method Analysis TimePerformed AtPathologist SignatureHCG QUANTITATIVE1,470mIU/mLTBH Comment: 5-50 ? 0.2-1 WEEK 50-500 ? [...] DOCLINISYNCFinal Result Performing OrganizationAddressCity/State/ZIP CodePhone Number [facility]NC [facility] documented in this encounter Visit Diagnoses Not on filedocumented in this encounter Care Teams Team MemberRelationshipSpecialtyStart DateEnd Date Zenon Alberts DO [address] [place] [phone] PCP - GeneralInternal Medicine03/10/25documented as of this encounter
--- OUTSIDE RECORDS SUMMARY | 2025-06-24 07:41 | XMS_ITS | Encounter Summary ---
Author Organization [facility] Address [address] [facility] [place] [address] Care Team Providers Care Restaurant Management Internship Name Role Phone Zenon Alberts DO Primary Care Provider [phone] Encounter Details DateTypeDepartmentCare Team (Latest Contact Info)Vugvzfdrdoz71/26/2025linisync Result Encounter NOMS External Department Unsolicited Jeremiah Burroughs DO [address] [place], [facility]11 Social History Tobacco UseTypesPacks/DayYears UsedDateSmoking Tobacco: NeverAlcohol UseStandard Drinks/WeekCommentsYes2 (1 standard drink = 0.6 oz pure alcohol)1-2 drinks/monthly or lessCommentsNoSex and Gender InformationValueDate RecordedSex Assigned at MpovsXaahqs90/23/2023 3:49 PM EDTLegal SexFemale 10/04/2022 11:08 PM EDTGender ZcmvxrdcOyzzdq83/23/2023 3:49 PM EDTSexual OrientationNot on filedocumented as of this encounter Plan of Treatment DateTypeDepartmentCare Team (Latest Contact Info)Tpivywmycvb56/19/2025 10:30 AM ESTAncillary Procedure [facility] [address] [place] [address] 07/10/2025 11:00 AM ESTInitial [facility] [address] [facility] [address] documented as of this encounter Procedures Procedure NamePriorityDate/TimeAssociated DiagnosisCommentsTBH PREG QUANT HCG Yyppsbp0806/17/2025 7:35 AM EST documented in this encounter Results * TBH PREG QUANT HCG (06/17/2025 7:35 AM EST)ComponentValueRef RangeTest Method Analysis TimePerformed AtPathologist SignatureHCG VDCQEJATZXWS913gEF/mLTBH Comment: 5-50 ? 0.2-1 WEEK 50-500 ? 1-2 WEEKS 100-5,000 ?2-3 WEEKS 500-10,000 ? 3-4 WEEKS 1,000-50,000 ?? 4-5 WEEKS 10,000-100,000 5-6 WEEKS 15,000-200,000 6-8 WEEKS 10,000-100,000 2-3 MONTHS Specimen (Source)Anatomical Location / LateralityCollection Method / Volume Collection TimeReceived Time06/17/2025 7:35 AM EST06/17/2025 7:37 AM EST Narrative CLINISYNC - 06/17/2025 10:53 AM EST Authorizing ProviderResult TypeResult StatusCorey Heike DOCLINISYNCFinal Result Performing OrganizationAddressCity/State/ZIP CodePhone Number [facility]NC [facility] documented in this encounter Visit Diagnoses Not on filedocumented in this encounter Care Teams Team MemberRelationshipSpecialtyStart DateEnd Date Zenon Alberts DO [address] [place] [phone] PCP - GeneralInternal Medicine03/10/25documented as of this encounter
--- OUTSIDE RECORDS SUMMARY | 2025-06-24 07:41 | XMS_ITS | Encounter Summary ---
Author Organization [facility] Address [address] [facility] [place] [address] Care Team Providers Care Construction Cost Estimator Name Role Phone Zenon Alberts DO Primary Care Provider [phone] Encounter Details DateTypeDepartmentCare Team (Latest Contact Info)Bkmdalwpoid64/02/2025Telephone [facility] [address] [place] [address] [place] [address] Yessi Mena LPN Social History Tobacco UseTypesPacks/DayYears UsedDateSmoking Tobacco: NeverAlcohol UseStandard Drinks/WeekCommentsYes2 (1 standard drink = 0.6 oz pure alcohol)1-2 drinks/monthly or lessCommentsNoSex and Gender InformationValueDate RecordedSex Assigned at HkenyFmbyok93/23/2023 3:49 PM EDTLegal SexFemale 10/04/2022 11:08 PM EDTGender HdchcdyrDvlrru35/23/2023 3:49 PM EDTSexual OrientationNot on filedocumented as of this encounter Miscellaneous Notes * Telephone Encounter - Yessi Mena LPN - 06/23/2025 9:32 AM EST 0924am Patient called and LMOM stating that she was informed with her last blood draw that there were no more draws left for her standing order. Patient voiced on message that she would like to have more HCG labs ordered to help with her anxiety as she read that they stop doubling anywhere around 8-12 weeks. Patient voiced she feels this will help keep her anxiety at bay. Patient request a call back to discuss. Patient also stated on VM that she has a history of 2 previous miscarriages. Will discuss with provider and reach out to patient. --ss Spoke with Dr. Burroughs and patient is able to have 2 more lab draws. Order will be sent to lab ([facility]). 11:14am Called patient LMOM that new order for 2 lab draws was sent to [facility] lab. Advised patient to call office with any concerns/questions. Yessi De Luna LPN documented in this encounter Plan of Treatment DateTypeDepartmentCare Team (Latest Contact Info)Lrwbooiaqjk59/19/2025 10:30 AM ESTAncillary Procedure [facility] [address] [place] [phone] 07/10/2025 11:00 AM ESTInitial [facility] [address] [facility] [place] [address] NameTypePriorityAssociated DiagnosesOrder SchedulehCG, quantitative, LabRoutine Positive urine test ([facility]) PCOS (polycystic ovarian syndrome) History of miscarriage Expected: 06/23/2025 (Approximate), Expires: 06/23/2026documented as of this encounter Visit Diagnoses Diagnosis Positive urine test ([facility]) PCOS (polycystic ovarian syndrome) Polycystic ovaries History of miscarriage Personal history of other genital system and obstetric disorders documented in this encounter Care Teams Team MemberRelationshipSpecialtyStart DateEnd Date Zenon Alberts DO [address] [facility] [place] [phone] PCP - GeneralInternal Medicine03/10/25documented as of this encounter
--- OUTSIDE RECORDS SUMMARY | 2025-06-24 07:41 | XMS_ITS | Clinical Summary ---
Author Organization [facility] Address [address] [place], [place] [address] Care Team Providers Care Engine Dispatcher Name Role Phone Keshia Restrepo MD Primary Care Provider [phone] Allergies Active AllergyReactionsCriticalityNoted DateCommentsMetronidazoleMental Status Change,Diarrhea,GI Upset,Hives,Other: See Comments,Rash,Shortness of Breath, Unknown,JuxxfzuwCxef13/16/2021 Medications MedicationSigDispense QuantityRefillsLast FilledStart DateEnd DateStatus escitalopram [...] DateUpper back pain07/15/2024Long-term use of high- risk japrpkpebg46/24/2024Organic anxiety jdypavwf58/25/2024alpitations 11/15/2023ilateral arm pain3Chronic bilateral low back pain without qesqurvj27/19/2023bnormal findings on imaging test3Photosensitivity 0002Dlkflwbkynr45/20/2022Chronic pain of left knee2Chronic left shoulder pain2Recurrent ayxdylstcv20/20/2075Bxqkgqjub37/20/2022Chronic nplysbi0312/09/2021 Family History Medical HistoryRelationCommentsHeartFatherProstate CancerFatherStrokeMotherColon CancerNo Family HistoryRelationStatusCommentsFatherAliveMotherAlive Social History Tobacco UseTypesPacks/DayYears UsedDateSmoking Tobacco: NeverSmokeless Tobacco: Never Tobacco Cessation:Counseling Given: Yes Alcohol UseStandard Drinks/WeekCommentsNot Currently0 (1 standard drink = 0.6 oz pure alcohol)socially- rarePHQ-2AnswerDate RecordedPHQ-2 uggtg2724Area Deprivation IndexAnswerDate RecordedNational Score (1-100), lower number is lower jzmo2464State Score (1-10), lower number is lower rinh878 Data from: https://www.neighborhoodatlas.[facility].edu/. Last address used for qwdlvcxufim[address]3CommentsNoSex and Gender InformationValueDate RecordedSex Assigned at EqkznKeatev08/13/2021 10:03 PM EDT Legal OrpCgjesj01/14/2021 4:54 PM EDTGender DplarpvoTnqkdg83/13/2021 10:03 PM EDTSexual KmfswbeupotDvcnkncn92/13/2021 10:03 PM EDT Last Filed Vital Signs Vital SignReadingTime TakenCommentsBlood Vrmpifqn500/61009/03/2024 11:00 AM EST Xtlal972309/03/2024 11:00 AM FRPIkkyzecxgai24.9 ??C (98.4 ??F)09/03/2024 10:13 AM ESTRespiratory Ijcv452309/03/2024 11:00 AM ESTOxygen Ukrejosvmy149%09/03/2024 11:00 AM ESTInhaled Oxygen Concentration--Nxunqh27.2 kg (115 lb)09/03/2024 10:13 AM PSNRbrzjn091.6 cm (5' 4 )09/03/2024 10:13 AM ESTBody Mass Index19.74 09/03/2024 10:13 AM EST Plan of Treatment Health MaintenanceDue DateLast DoneCommentsPeds To Adult Transition Initial Mczgawfaov44/28/2011HPV Vaccine (3 - 2-dose series), 02/07/2011Peds To Adult Transition Annual Tixaykuxfm05/28/2013Depression Mtxbmmntd33/28/2017HIV Ixgqhfszz02/28/2017Cervical Cancer Faebkfoob78/28/2020 DTaP,Tdap,Td Vaccine (7 - Td or Tdap), 01/27/2004, 05/21/2000, Additional history existsCovid-19 Vaccine (2024- season) /, 03/16/2021Influenza Vaccine (#1)2025Hepatitis B YqqllwhClnujeqnw08/25/1999, 01/14/1999, 1998Hepatitis C ScreeningCompleted 12/08/2022 Procedures Procedure NamePriorityDate/TimeAssociated DiagnosisCommentsHEPATITIS C ANTIBODY IA WITH HOGLZPFGTCYCAnyhjsu46/19/2023 12:39 PM EDT Elevated LFTs from Last 3 Months or Most Recently Relevant to Health Maintenance Results * HEP C AB IA W/CONF SCRN (12/08/2022 12:39 PM EDT)ComponentValueRef RangeTest MethodAnalysis TimePerformed AtPathologist SignatureHep C Antibody IANegative Dbvobjqz27/20/2023 10:13 AM EDTCMARION HOSPITAL LABComment:The result suggests no evidence of active infection with Hepatitis C virus. Should recent infectionbe suspected, repeat testing may be considered 4-6 weeks after this draw.Specimen (Source)Anatomical Location / LateralityCollection Method / VolumeCollection TimeReceived TimeBloodBLOOD SPECIMEN / UnknownVenipuncture / Aufwwxx9912/08/2022 12:39 PM EDT12/08/2022 12:41 PM EDT Narrative Authorizing ProviderResult TypeResult StatusMarsundeep Gee MDLABORATORYFinal ResultPerforming OrganizationAddressCity/State/ZIP CodePhone Number [facility] [address] [place] [address], from Last 3 Months or Most Recently Relevant to Health Maintenance Insurance Care Teams Team MemberRelationshipSpecialtyStart DateEnd Date Keshia Restrepo MD [address] [place] [address] PCP - GeneralFamily Wsoolucz46/20/24
--- OUTSIDE RECORDS SUMMARY | 2025-06-24 07:41 | XMS_ITS | Clinical Summary ---
Author Organization [employer] s tem Address [facility] [id number] [address] 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 Phone No Pcp, No Pcp [...] standard drink = 0.6 oz pure alcohol)ChildcareAnswerDate CxqdjwzsRqfwrvlicLocpimj26/13/2019Employment AnswerDate SluvjfaeKrnlidvkzzXcusmdj29/13/2019Hunger ScreeningAnswerDate RecordedWithin the past 12 months we worried whether our food would run out before we got money to buy more.Never True02/13/2024Food Insecurity - Inability Not on file02/13/2024urpose - LifeAnswerDate RecordedPurpose and direction in ylbrGqsbppq93/11/2021CommentsUnknownSex and Gender InformationValueDate RecordedSex Assigned at BirthNot on fileLegal BcsAlblsl55/10/2018 9:09 AM EDT Gender IdentityNot on fileSexual OrientationNot on file Last Filed Vital Signs Vital SignReadingTime TakenCommentsBlood Julejkwx769/7807 9:24 AM EDT Dytao994302/13/2024 9:24 AM EDTTemperature--Respiratory Rate--Oxygen Saturation-- Inhaled Oxygen Concentration--Boilto09.3 kg (115 lb 6.4 oz)02/13/2024 9:24 AM DIAUrdknh281.6 cm (5' 4 )02/13/2024 9:24 AM EDTBody Mass Index19.8102/13/2024 9:24 AM EDT Plan of Treatment Health MaintenanceDue DateLast DoneCommentsDepression Tbpvihisu88/28/2011Pap Smear11/18/2019DTaP,Tdap and Td Vaccines (7 - Td or Tdap), 01/27/2004, 05/21/2000, Additional history existsAdult BMI Nzznkrurw68/24/2025 02/13/2024Tobacco Yiwechfbu73/24/95306202/13/2024OVID-19 Vaccine ( season)/, 03/16/2021Influenza Scmfbhe24/07/2024 Medical Devices Not on file Insurance Care Teams Team MemberRelationshipSpecialtyStart DateEnd Date No Pcp, No Pcp JESE Palacios [id number] PCP - GeneralFami Medicine02/13/24
--- OUTSIDE RECORDS SUMMARY | 2025-06-24 07:41 | XMS_ITS | Encounter Summary ---
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 Role Phone Zenon Alberts Primary Care Provider [phone] Encounter Details DateTypeDepartmentCare Team (Latest Contact Info)Dmcuuzvvisu36/25/2025Telephone [facility] [address] [place] [address] Jeremiah Burroughs DO [address] [place], [place] [address] Social History Tobacco UseTypesPacks/DayYears UsedDateSmoking Tobacco: NeverAlcohol UseStandard Drinks/WeekCommentsYes2 (1 standard drink = 0.6 oz pure alcohol)1-2 drinks/monthly or lessCommentsNoSex and Gender InformationValueDate RecordedSex Assigned at FsuwbVkqbin42/23/2023 3:49 PM EDTLegal SexFemale 10/04/2022 11:08 PM EDTGender VtpblvuoLrjcso64/23/2023 3:49 PM EDTSexual OrientationNot on filedocumented as [...] Plan of Treatment DateTypeDepartmentCare Team (Latest Contact Info)Szpzregoteo14/19/2025 10:30 AM ESTAncillary Procedure [facility] [address] [place] [id number] 07/10/2025 11:00 AM ESTInitial [facility] [address] [place] [phone] NameTypePriorityAssociated DiagnosesOrder SchedulehCG, quantitative, LabRoutine Positive urine test ([facility]) Missed menses Expected: 06/16/2025 (Approximate), Expires: 12/14/2025documented as of this encounter Visit Diagnoses Diagnosis Positive urine test ([facility]) Missed menses documented in this encounter Care Teams Team MemberRelationshipSpecialtyStart DateEnd Date Zenon Alberts DO [address] [facility] [place] [address] PCP - GeneralInternal Medicine03/10/25documented as of this encounter
--- OUTSIDE RECORDS SUMMARY | 2025-06-24 07:42 | XMS_ITS | CCD ---
Author Organization [facility] Care Team Providers Care Bundle Clerk Name Role Phone Arlene Negro Unavailable Jaya [...] HEMEYER ., DR MATA Primary Care Unavailable [place], DR DARA [employer]ede[employer] Unavailable MISC, DR [...] MATA Primary Care Unavailable HEIKE ., DR HFUF Consulting Unavailable HEMEYER ., DR MATA Admitting [...] Provider Analia Holliday CNP Primary Care Provider [phone] Analia Holliday CNP Primary Care Provider DO Ana Bolton Attending Provider [phone] KAPLE, ANALIA M Primary Care Unavailable MILAGROS [...] Unavailable Gabino Owen MD Primary Care Provider [phone] Jennifer Frazier MD Primary Care Provider [phone] Kyree Stinson MD Primary Care Provider yKree Stinson MD Unavailable Unavailable Primary Care Provider [...] Primary Care Unavailable SEEMA DAVIS Attending Unavailable MYARLE, ANALIA M Primary Care Unavailable PAULA PRETTY [...] TypeDate of OnsetReaction(s) FacilityNitroimidazoles (antibiotic) (1 source)metroNIDAZOLEDrug Wayinrl92-92-0388Rfrowd Status Change, Diarrhea, GI Upset, Hives, Other: See Comments, Rash, Shortness of Breath, Unknown, Vomiting [facility] (20 sources)metroNIDAZOLE; Translations: [METRONIDAZOLE]Drug Gzzvisy12-39-7034 Mental Status Change, Diarrhea, GI Upset, Hives, Other: See Comments, Rash, Shortness of Breath, Unknown, [facility]iting[facility] (1 source)metroNIDAZOLEDrug Ohvrlhr51-93-2469ZrdTrihealth [facility] (8 sources)VancomycinDrug AllergyHarry [facility]. [facility] [employer] Other (1 source)metroNIDAZOLEDrug Kqxghkz20-02-6246CtiadlnwfAccess [facility] [place] [facility] (1 source)VancomycinDrug Atqwwod91-22-2876NridqracjAccess Hospital [place] Rep[facility] Medications Current Medications MedicationDrug Class(es)DatesSig (Normalized)Sig (Original)cholecalciferol, vitamin D3, (VITAMIN D3 ORAL) (2 sources)take 1 tablet by mouth in the morningcholecalciferol, vitamin D3, (VITAMIN D3 ORAL) Take 1 tablet by mouth in the morning. Activecolestipol hydrochloride 1000 mg oral tablet (2 sources)Bile Acid SequestrantStart: 09-05-2024 End: 08-64-9939trcy 2 tablets by mouth once dailycolestipol (COLESTID) 1 gram tablet Take 2 tablets by mouth once daily. 60 tablet 2 09/09/2024 12/08/2024 Activedicyclomine hydrochloride 20 mg oral tablet (20 sources)AnticholinergicStart: 03-14-2024 End: 22-33-9639wvio 1 tablet by mouth twice dailydicyclomine (BENTYL) 20 mg tablet Take 1 tablet by mouth two times a day. 60 tablet 2 03/14/2024 06/12/2024 ActiveStart: 29-43-3007nqsw 1 capsule by mouth every twenty-four hours as neededdicyclomine (Bentyl) 10 mg capsule Take 1 capsule (10 mg) by mouth once daily as needed. 11/29/2023ctiveStart: 64-73-5816psmh 1 capsule by mouth three times daily as neededDicyclomine 10 mg capsule Active 10 MG PO Three times daily as needed November 29, 2023 12:00am FreeTextSig: TAKE 1 CAPSULE BY MOUTH 3 TIMES A DAY NEEDED; Note: Source Status: Taking; Refills: 3; Qty:90 Capsule; Provider: Dereje Schaefer ( )Start: 11-22-2022 End: 61-30-0314vcfz 1 capsule by mouth every eight hours as neededdicyclomine (BENTYL) 10 mg capsule Take 10 mg by mouth three times daily as needed. 0 11/22/2022 02/06/2023 DiscontinuedStart: 03-15-2022 End: 73-46-2235crmq 1 tablet by mouth every eight hoursdicyclomine (BENTYL) 20 mg tablet Take 1 tablet by mouth q 8 HR. 0 03/15/2022 ActiveComment on above: Take 10 mg by mouth three times daily as needed.Take 1 tablet by mouth q 8 HR. escitalopram 10 mg oral tablet (20 sources)Serotonin Reuptake InhibitorStart: 03-19-2024 End: 00-39-5099wzdr 1 tablet by mouth once dailyEscitalopram Oxalate 10 mg tablet Active 10 MG PO Daily 90 October 27, 2024 11:27amStart: 01-16-2024 End: 61-69-7800qlul 1 tablet by mouth once dailyEscitalopram Oxalate 5 mg tablet Discontinued 5 MG PO Daily 90 January 16, 2024 12:00am March 19, 2024 1:45pmStart: 44-92-9034gask 0.5 tablet by mouth once dailyescitalopram (Lexapro) 10 mg tablet Take 0.5 tablets (5 mg) by mouth once daily. 11/29/2023 Active Start: 11-29-2023 End: 36-50-4003vcrj 1 tablet by mouth once dailyEscitalopram Oxalate Discontinued 5 MG PO Daily November 29, 2023 11:36am January 16, 2024 10:59pm FreeTe xtSi tablet Orally Once a day; Note: Source Status: Taking; Provider: Miya Helms ( )Start: 11-29-2023 End: 68-86-9368dzhh 1 tablet by mouth once dailyEscitalopram Oxalate [...] 200 mg oral tablet (8 sources)Macrolide AntibacterialStart: 20-41-3717hykn 1 tablet by mouth every twelve hoursDificid 200 MG 1 tablet Orally Twice a day for 10 days Mar, Activetake 1 tablet by mouth every twelve hoursDificid 200 MG 1 tablet Orally Twice a day PT PICKS THE SCRIPT TODAY Activegabapentin 100 mg oral capsule (10 sources)Anti-epileptic AgentStart: 04-30-2024 End: 33-64-4385koea 1 tablet by mouth once daily at [...] disintegrating oral tablet (20 sources)Serotonin-3 Receptor AntagonistStart: 92-88-7784Itnrvcziyfd 4 mg tablet,disintegrating Active 4 MG PO as needed November 12, 2024 12:00amStart: 10-38-3224llciopdiaxn (ZOFRAN) 4 mg tablet Take 4 mg by mouth as needed. 09/01/2022 ActiveComment on above:Take 4 mg by mouth as needed.predniSONE 20 mg oral tablet (13 sources)Start: 04-04-2023 End: 15-39-2869fnmx 1 tablet by mouth once dailypredniSONE (DELTASONE) 20 mg tablet Take 1 tablet by mouth once daily for 10 days. 10 tablet 0 04/04/2023 04/14/2023 ActiveStart: 03-13-2023 End: 13-60-8622voqp 1 tablet by mouth once dailypredniSONE (DELTASONE) 20 mg tablet Take 1 tablet by mouth once daily for 14 days. 14 tablet 0 03/13/2023 03/27/2023 ActiveStart: 10-31-2020 End: 85-87-7194nhty 1 tablet by mouth once daily at mealtimePrednisone 50 mg tablet Discontinued 50 MG PO Daily 5 October 31, 2020 12:00am November 29, 2023 11:18am administer with food or milkComment on above:Take 1 tablet by mouth once daily for 14 days.Take 1 tablet by mouth once daily for 10 days.vancomycin 125 mg oral capsule (2 sources)Glycopeptide AntibacterialStart: 07-14-2024 End: 25-64-5621cqko 1 capsule by mouth three times dailyvancomycin (VANCOCIN) 125 mg capsule Indications: Clostridium difficile infection Take 1 capsule by mouth three times a day for 10 days. 30 capsule 07/14/2024 07/24/2024 Active Completed/Discontinued Medications MedicationDrug Class(es)DatesSig (Normalized)Sig (Original)amitriptyline hydrochloride 25 mg oral tablet (20 sources)Tricyclic AntidepressantStart: 12-28-2023 End: 58-42-9716jrlk 1 tablet by mouth once daily at bedtimeamitriptyline (ELAVIL) 25 mg tablet take 1 tablet by mouth everyday at bedtime 90 tablet 1 03/25/2024 04/30/2024 DiscontinuedStart: 05-22-2023 End: 71-28-7632nvyk 1 tablet by mouth once daily at bedtimeamitriptyline (ELAVIL) 25 mg tablet Take 1 tablet by mouth daily at bedtime. 30 tablet 0 Discontinued (Discontinued by Patient)Comment on above:Take 1 tablet by mouth daily at bedtime.amylase 178869 unt / lipase 07925 unt / protease [id number] unt delayed release oral capsule (16 sources)Start: 06-06-2023 End: 94-35-8258hpvd 2 capsules by mouth twice daily at mealtime xztyyu-yfomnnwd-pusgczc (CREON) 24,000-76,000 -120,000 unit delayed release capsule Take 2 capsulesby mouth two times a day with meals. 120 capsule 0 06/06/2023 10/22/2023 DiscontinuedStart: 02-06-2023 End: 53-32-0932lpzv 1 capsule by mouth three times daily at mealtime pnfjdk-aiyqdlls-xpyboot (ZENPEP) 40,000-126,000- 168,000 unit delayed release capsule [...] oral capsule (8 sources)Anticholinergic, BenzodiazepineStart: 03-13-2023 End: 93-05-0918yzub 1 capsule by mouth three times daily [...] oral capsule (8 sources)Vitamin DStart: 11-29-2023 End: 68-38-0303foby 1 capsule by mouth once dailyCholecalciferol (Vitamin D3) 50 mcg (2,000 unit) capsule Discontinued 2000 UNIT PO Daily November 29, 2023 12:00am March 19, 2024 1:34pm FreeTextSi capsule Orally Once a day; Note: Source Status: Start; Refills: 4; Provider: Miya Helms MStart: 09-41-4033nvue 1 capsule by mouth every twenty-four hoursVitamin D3 50 MCG (2000 UT) 1 capsule Orally Once a day for 30 days May, Activecyclobenzaprine hydrochloride 10 mg oral tablet (8 sources)Muscle RelaxantStart: 10-31-2020 End: 70-75-5571nnew 1 tablet by mouth three times daily as needed for muscle spasmsCyclobenzaprine 10 mg tablet Discontinued 10 MG PO Three times daily as needed for muscle spasm October 31, 2020 12:00am March 19, 2024 1:35pm diclofenac sodium 50 mg delayed release oral tablet (8 sources)Nonsteroidal Anti-inflammatory DrugStart: 10-31-2020 End: 68-41-3001yqtg 1 tablet by mouth every twelve hours as needed for pain Diclofenac Sodium 50 mg tablet,delayed release (DR/EC) Discontinued 50 MG PO Q12H as needed for pain October 31, 2020 12:00am November 29, 2023 11:18am ergocalciferol 1.25 mg oral capsule (10 sources)Provitamin D2 CompoundStart: 12-14-2022 End: 83-72-4698gtpqxczjvxswvi 50,000 unit capsule (VITAMIN D2, DRISDOL) Indications: [...] mg oral tablet (8 sources)AntihistamineStart: 10-31-2020 End: 60-53-6879vnuk 1 tablet by mouth every six hours as needed for anxiety Hydroxyzine Hcl 25 mg tablet Discontinued 25 MG PO Q6H as needed for anxiety October 31, 2020 12:00am March 19, 2024 1:35pm12 hr hyoscyamine sulfate 0.375 mg extended release oral tablet (5 sources)Start: 12-12-2023 End: 81-42-3748kgae 1 tablet by mouth twice dailyhyoscyamine SR (LEVBID) 0.375 mg 12 hr tablet Take 1 tablet by mouth two times a day. 60 tablet 2 12/13/2023 12/28/2023 DiscontinuedStart: 02-06-2023 End: 31-07-8873valx 1 tablet by mouth twice dailyhyoscyamine SR (LEVBID) 0.375 mg 12 hr tablet Indications: Generalized abdominal pain , Chronic pancreatitis, unspecified pancreatitis type (HCC) , Intestinal malabsorption, unspecified type Take 1 tablet by mouth twice daily. 60 tablet 2 02/06/2023 05/07/2023 Active Comment on above:Take 1 tablet by mouth twice daily.iv contrast (will be provided with radiology test) (2 sources)Start: 06-13-2023 End: 40-65-9880jjikdx 1 dose intravenously onceiv contrast (will be [...] Each 0 06/13/2023 06/14/2023 ExpiredStart: 03-16-2023 End: 84-24-6300lv contrast (will be provided with radiology test) [...] (8 sources)Antiarrhythmic, Amide Local AnestheticStart: 10-31-2020 End: 00-51-5665lqemg 1 dose topically once daily as needed for painLidocaine 5 % adhesive patch,medicated Discontinued 1 PATCH TOPICAL Daily as needed for pain October 31, 2020 12:00am November 29, 2023 11:18am leave on most painful area for up to 12 hrspantoprazole 40 mg delayed release oral tablet (10 sources)Proton Pump InhibitorStart: 01-22-2024 End: 72-85-1588rzxj 1 tablet by mouth once dailypantoprazole DR (PROTONIX) 40 mg tablet TAKE 1 TABLET BY MOUTH EVERY DAY 90 tablet 1 01/22/2024 04/30/2024 DiscontinuedStart: 33-34-1308rrrq 1 tablet by mouth once dailypantoprazole DR (PROTONIX) 40 mg tablet Take 1 tablet by mouth once daily. 30 tablet 2 12/28/2023 ActiveProgesterone 200 MG suppository (6 sources)Start: 06-23-2024 End: 01-50-5683Wpkgjofmyaqw 200 MG suppository Indications: History of miscarriage Insert 200 mg into the vagina at bedtime Insert suppository vaginally every night at bedtime until 12 weeks gestation 30 suppository 3 06/23/2024 07/03/2024 DiscontinuedStart: 06-23-2024 End: 24-00-7817Qafgwejmuftp 200 MG suppository Indications: History of miscarriage Insert 200 mg into the vagina at bedtime Insert suppository vaginally every night at bedtime until 12 weeks gestation 30 suppository 3 06/23/2024 07/23/2024 Ufazlj3248 ml sodium chloride 9 mg/ml injection (1 source)Start: 09-03-2024 End: 01-45-6701yndt 30 mL intravenously every hour30 mL/hr, INTRAVENOUS, CONTINUOUS, Starting on Sun09/03/24 at 1030, Until Ami 09/04/24 at 0420, Prepr oceduresucralfate 1000 mg oral tablet (2 sources)Aluminum ComplexStart: 12-24-2023 End: 63-82-9442pbyy 1 tablet by mouth three times dailysucralfate (CARAFATE) 1 gram tablet Take 1 tablet by mouth three times a day. 90 tablet 2 12/24/2023 12/28/2023 Discontinuedsulfamethoxazole 800 mg / trimethoprim 160 mg oral tablet (1 source)Dihydrofolate Reductase Inhibitor Antibacterial, Sulfonamide AntimicrobialStart: 10-24-2024 End: 22-37-6927macp 1 tablet by mouth twice dailySulfamethoxazole-Trimethoprim 800-160 mg tablet Discontinued 1 TAB PO Twice daily 6 October 24, 2024 12:00am November 12, 2024 10:03am Problems Active Problems Problem ClassificationProblemDateDocumented DateEpisodic/ChronicAnxiety disorders (20 sources)Generalized anxiety disorder; Translations: [Generalized anxiety disorder]Onset: 89-47-9541OxpfeysQgtpaw; peripheral; and visceral artery aneurysms (1 source)Carotid artery aneurysm; Translations: [Aneurysm of carotid artery] 08-18-3502VcorbdqZyutzbr tract disease (1 source)Cholecystitis, unspecified; Translations: [Cholecystitis]Onset: 36-49-0647MlwddbslHdwtunx dysrhythmias (1 source)Supraventricular tachycardia; Translations: [Other supraventricular tachycardia (HCC)]50-19-4234BzkcqctAydoreabkrvpv and procreative management (2 sources)Patient encounter status; Translations: [Encounter for procreative management, unspecified]33-23-0091OxbovpvaMiygwvfxzg disorders (9 sources)Gastroesophageal reflux disease; Translations: [Gastro-esophageal reflux disease without esophagitis]70-48-1396AqcsgzmVjdhk valve disorders (4 sources)Heart murmur; Translations: [Cardiac murmur, unspecified]03-19-2024 EpisodicImmunizations and screening for infectious disease (4 sources)Contact with and (suspected) exposure to other viral communicable diseases; Translations: [Encounter for screening for human papillomavirus (HPV)] Onset: 05-05-2021 Resolved: 10-90-2658JiqmhcacCkbojpg and fatigue (20 sources)Chronic fatigue, unspecified; Translations: [Fatigue]Onset: 96-89-7559GujqahhPxyhggrty disorders (12 sources)Irregular menstruation, unspecified; Translations: [Disorder of menstruation]Onset: 745636-18-4638VrgtwduSfri disorders (4 sources)Depressive disorder; Translations: [Depression]Onset: 04-16-2024 89-15-1324DxjgeshKbeermmnu of unspecified nature or uncertain behavior (2 sources)Neoplastic disease; Translations: [Neoplasm of unspecified behavior of bone, soft tissue, and skin]08-04-9593FmcmnwjhLdqvrpwhlnt deficiencies (13 sources)Vitamin D deficiency; Translations: [Vitamin D deficiency, unspecified]Onset: 90-41-5069CetunkmChuyysstvki deficiencies (2 sources)Cobalamin deficiency; Translations: [Deficiency of other specified B group vitamins]Onset: 167556-86-2521UyfbqyxbXgukz aftercare (1 source)Surgical follow-up; Translations: [Encounter for follow-up examination after completed treatment for conditions other than malignant neoplasm] 41-97-3809XubgtbjcBzyqm aftercare (2 sources)H/O: miscarriage; Translations: [Encounter for other specified aftercare]91-07-8026WnyolgovLcjke aftercare (6 sources)H/O: high risk medication; Translations: [Other long chain quiller tender (current) drug therapy]Onset: 511785-79-1749GckfbchfBbgqg circulatory disease (7 sources)Celiac artery compression syndrome; 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]85-35-8252XzuwpzhNevkd connective tissue disease (8 sources)Pain in upper limb; Translations: [Pain in arm, unspecified] 33-79-5723XqpkuqiuGbwoe connective tissue disease (2 sources)Neuropathy; Translations: [Neuralgia and neuritis, unspecified] 53-27-7873UwpbbictMntkz diseases of kidney and ureters (1 source)Cyst of kidney, acquired; Translations: [CYST OF KIDNEY ACQUIRED] Onset: 60-92-9315BzswxdyrAxtec disorders of stomach and duodenum (3 sources)Disorder of function of stomach; Translations: [Disease of stomach and duodenum, unspecified]67-45-3417RngkuaoyHtbqt disorders of stomach and duodenum (1 source)Disease of stomach and duodenum, unspecified; Translations: [Dyspepsia and disorder of function of stomach]Onset: 84-14-0581RqbxmltqGgkbq endocrine disorders (2 sources)Polycystic ovary syndrome; Translations: [Polycystic ovarian syndrome]11-74-3346XiisflxFuebr female genital disorders (2 sources)Abnormal uterine bleeding; Translations: [Abnormal uterine and vaginal bleeding, unspecified]90-56-5484JhdtmptWmovt gastrointestinal disorders (20 sources)Irritable bowel syndrome with diarrhea; Translations: [Irritable bowel syndrome with diarrhea]Onset: 712045-31-6603RtguiqjGxnls gastrointestinal disorders (10 sources)Irritable bowel syndrome with diarrhea; Translations: [Irritable bowel syndrome]Onset: 38-47-2866QhafuijXgscm gastrointestinal disorders (1 source)Intestinal malabsorption; Translations: [Intestinal malabsorption, unspecified]94-11-4574UnrptkzBjabi gastrointestinal disorders (1 source)Intestinal malabsorption, unspecified; Translations: [Intestinal malabsorption, unspecified type]Onset: 79-27-8336KvwixazHlsfz gastrointestinal disorders (8 sources)Diarrhea; Translations: [Diarrhea, unspecified]EpisodicOther gastrointestinal disorders (10 sources)Diarrhea, unspecified; Translations: [Diarrhea]Onset: 10-27-2022 EpisodicOther gastrointestinal disorders (4 sources)Personal history of other diseases of the digestive system; Translations: [PERSONAL HX OTH DZ DIGESTIVE SYSTEM]Onset: 59-29-0540Pihiimjq Other gastrointestinal disorders (3 sources)History of pancreatitis; Translations: [Personal history of other diseases of the digestive system]38-90-2153TsuetoueDmypz gastrointestinal disorders (1 source)Change in bowel habit; Translations: [Change in bowel habits]Onset: 13-73-4558DejdxwzvDztqm infections; including parasitic (2 sources)Personal history of other infectious and parasitic diseases; Translations: [Personal history of other infectious and parasitic diseases] Onset: 407189-18-7812GdhdvefyGrebt infections; including parasitic (1 source)History of Clostridium difficile intestinal infection; Translations: [Personal history of other infectious and parasitic diseases]88-83-6698Piwybevy Other infections; including parasitic (4 sources)History of bacterial infection; Translations: [Personal history of other infectious and parasitic diseases]39-46-3910VaffeecdChxrt nutritional; endocrine; and metabolic disorders (5 sources)Underweight; Translations: [UNDERWEIGHT]Onset: 19-06-0282Zklbuvtd Other nutritional; endocrine; and metabolic disorders (4 sources)Abnormal weight loss; Translations: [ABNORMAL WEIGHT LOSS]Onset: 41-50-5352BwxmofkpTsavm screening for suspected conditions (not mental disorders or infectious disease) (20 sources)Radiology result abnormal; Translations: [Abnormal findings on diagnostic imaging of other specified body structures]Onset: 12-08-2022 77-39-7959FtqwnusWdzov screening for suspected conditions (not mental disorders or infectious disease) (10 sources)Abnormal findings on diagnostic imaging of other abdominal regions, including retroperitoneum; Translations: [Other specified abnormal findings of blood chemistry]Onset: 31-65-1677JnxoniziUxdbk skin disorders (1 source)Nonscarring hair loss, unspecified; Translations: [NONSCARRING HAIR LOSS UNSPECIFIED]Onset: 65-91-8759VgyoyqllMctnylchzi disorders (not diabetes) (11 sources)Chronic pancreatitis; Translations: [Other chronic pancreatitis] Onset: 886134-52-1160PyqapvmDcexwdxdru disorders (not diabetes) (1 source)Acute pancreatitis without necrosis or infection, unspecifiedEpisodic Residual codes; unclassified (1 source)FH: Cardiovascular disease; Translations: [Family history of ischemic heart disease and other diseases of the circulatory system]48-71-4053Wstglruv Unclassified (1 source)APPOINTMENT ZAWOLSDBZ33-34-3376Gaovrdzebrie (1 source)Other supraventricular tachycardia (HCC); Translations: [Other supraventricular tachycardia (HCC)]Onset: 62-36-6179Ukylvkd tract infections (1 source)Urinary tract infection, site not specified; Translations: [Urinary tract infection, site not specified]Onset: 47-24-4625Jsnwsxyt Past or Other Problems Problem ClassificationProblemDateDocumented DateEpisodic/ChronicAbdominal pain (20 sources)Right upper quadrant pain; Translations: [Right upper quadrant pain] Onset: 42-78-6416JykmrsafRywzyhne reactions (20 sources)Urticaria; Translations: [Urticaria, unspecified]Onset: 12-09-2021 66-44-0013JaxzwtusQcosaut disorders (20 sources)Organic anxiety disorder; 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]Onset: 686583-63-6752FfpdrqiuYhsqzrp dysrhythmias (20 sources)Palpitations; Translations: [Palpitations]Onset: 11-07-2023 11-39-3121RrysensrMxqfznovqicr of device; implant or graft (11 sources)Pain; Translations: [Pain due to genitourinary prosthetic devices, implants and grafts, initial encounter]Onset: 426595-65-3642ZyoinzvvLlgty of unknown origin (4 sources)Fever, unspecified; Translations: [FEVER UNSPECIFIED]Onset: 11-46-9175XrkyyxiwJhyim and electrolyte disorders (1 source)Dehydration; Translations: [DEHYDRATION]Onset: 22-56-5143Bmlhkahr Gastritis and duodenitis (11 sources)Bile-induced gastritis; Translations: [Other gastritis without bleeding]Onset: 142138-12-6577LurxslffMvffrnfrldyut symptoms and ill- defined conditions (16 sources)Personal history of urinary (tract) infections; Translations: [Dysuria]Onset: 545776-35-4602SkcxfahgJtxdmdoosk infection (20 sources)Clostridial enteric disease; 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 due to Clostridium difficile, not specified as recurrent]Onset: 09-27-2021 Resolved: 87-18-6514RwmnjebpJsqvcnz and fatigue (4 sources)Weakness; Translations: [WEAKNESS]Onset: 22-03-9639Sxtyjzte Miscellaneous mental health disorders (11 sources)Anxiety about body function or health; Translations: [Other symptoms and signs involving emotional state]Onset: 89-66-140702877977-76-5542OnatqtjaNokexs and vomiting (17 sources)Nausea; Translations: [Nausea]Onset: 72-42-1812LcnukxylNwgiyzmbaxkje gastroenteritis (4 sources)Noninfective gastroenteritis and colitis, unspecified; Translations: [NONINFECTIVE GE AND COLITIS UNS]Onset: 63-59-9994UltayamoCixqt connective tissue disease (20 sources)Pain of bilateral upper limbs; Translations: [Pain in right arm] Onset: 613916-74-2175SnerivtlYbajn diseases of veins and lymphatics (11 sources)Venous stenosis; Translations: [Compression of vein]Onset: 417707-30-0260RsyqtxdcLexno gastrointestinal disorders (13 sources)Altered bowel function; Translations: [Other specified symptoms and signs involving the digestive system and abdomen]Onset: EpisodicOther gastrointestinal disorders (11 sources)Borborygmi; Translations: [Other specified symptoms and signs involving the digestive system and abdomen]Onset: 234244-30-3161Uqensfvq Other infections; including parasitic (13 sources)Disorder due to infection; Translations: [Unspecified infectious disease]Onset: 041752-15-5746LokpcjayOolvm infections; including parasitic (20 sources)Recurrent infectious disease; Translations: [Unspecified infectious disease]Onset: 335820-68-6443AxzflustMofow lower respiratory disease (1 source)Difficulty breathing; Translations: [Other abnormalities of breathing] 41-31-2097BgvxedhhSwagr non-traumatic joint disorders (20 sources)Pain in left knee; Translations: [Pain in joint, lower leg]Onset: 802192-80-8199OnevaxdtWijez non-traumatic joint disorders (20 sources)Chronic pain of left upper limb; Translations: [Pain in left shoulder]Onset: 545441-02-2495VpidzmyjNjhmb nutritional; endocrine; and metabolic disorders (11 sources)Underweight; Translations: [Underweight]Onset: EpisodicOvarian cyst (11 sources)Cyst of left ovary; Translations: [Unspecified ovarian cyst, left side]Onset: 370014-79-3377JspzpnkhPfmbzsft codes; unclassified (1 source)Acquired absence of other specified parts of digestive tract; Translations: [Other postprocedural status]36-33-4093ChpszhylFfbrpkgkgnr; intervertebral disc disorders; other back problems (20 sources)Neck pain; Translations: [Cervicalgia]Onset: 724861-26-4903 EpisodicSpontaneous (11 sources)Miscarriage; Translations: [Complete or unspecified spontaneous without complication]Onset: 722382-09-6576KmxupciyXldmuvvkganz (6 sources)Onset: 239111-97-4831 Results Test NameValueInterpretationReference RangeFacilityALL FOLLICLE STIMULATING HORMONEon 80-20-1605ZCK7.7. mIU/mLNOMS HealthcareComment on above:Adult Female Range Follicular phase 3.5 - 12.5 Ovulation phase 4.7 - 21.5 Luteal phase 1.7 - 7.7 Postmenopausal 25.8 - 134.8 Performed at: [address] [id number] Meat Manager: Kai Schuster PhD, Phone: [phone] ALL LUTEINIZING HORMONEon 46-23-2003ISGZHJMPCIR HORMONE(LH)11.6. mIU/mLNOMS HealthcareComment on above:Adult Female Range Follicular phase 2.4 - 12.6 Ovulation phase 14.0 - 95.6 Luteal phase 1.0 - 11.4 Postmenopausal 7.7 - 58.5 No Panel Informationon 03-28-1657IVIWSPMECPNJK HealthcareALL THYROXINE (T4) FREE on 43-69-6222Ekjr T4 [Mass/Vol]0.97 ng/dL0.76 - 1.46 ng/dLNOCoxHealth CLINISYNCNOKY HealthcareMLR HEMOGLOBIN A1Con 33-66-4006Wdgvxqi [Mass/Vol]100 mg/dLNOCoxHealthKaaiipsepxEeC6s (Bld) [Mass fraction]5.1 %4.5 - 6.2 %[facility] Comment on above:ADA RECOMMENDED LIMIT 4.0 - 6.0 ADA THERAPEUTIC TARGET < 7.0 ACTION SUGGESTED > 7.0 CLINEllett Memorial HospitalNo Panel Informationon 39-83-7563Ytjuqnxdvrpib Test COMMENT.[facility] Hospital DaytonComment on above:Test Ordered: [id number] C difficile Toxins A+B, EIAC difficile Toxins A+B, EIA Negative CB Reference Ra nge: NegativePerformed at: - [facility] [address] [id number] Director: Kai Schuster PhD, Phone: [phone] Auto (Bld) [#/Vol]on 32-28-0097Kejxeuuvo (Bld) [#/Vol]Automated basophil count0.0-0.1 [facility] DaytonBasophils/100 WBC Auto (Bld)on 11-04-2024 Basophils/100 WBC (Bld)Automated basophil %0.2-2.0[facility] DaytonEosinophils/100 WBC Auto (Bld)on 84-82-6570Dgtzxghkxbv/100 WBC (Bld) Automated eosinophil %0.9-7.0[facility] Hospital DaytonErythrocyte distribution width Auto (RBC) [Ratio]on 66-85-7752Aohrqgwgzda distribution width (RBC) [Ratio]Erythrocyte distribution width [Ratio] by Automated count11.0-15.0 [facility] DaytonHematocrit Auto (Bld) [Volume fraction]on 29-48-2078Adtvzyhqqk (Bld) [Volume fraction]Hematocrit [Volume Fraction] of Blood by Automated count36.0-48.0[facility] DaytonHemoglobin [Mass/volume] in Bloodon 84-20-6630Uqrhpvania (Bld) [Mass/Vol]Hemoglobin [Mass/volume] in Blood12.0-16.0[facility] DaytonLaboratory - Chemistry and Chemistry - challengeon 66-82-9806Bddneetoc Ql (U)NegativeNEGATIVE [facility] DaytonGlucose (U) [Mass/Vol]NegativeNEGATIVEAccess Hospital DaytonKetones Ql (U)15 mg/dLAbnormalNEGATIVEAccess Hospital DaytonpH (U)6.0 [pH]5.0-9.0UC Medical Centerpecific gravity (U) [Rel density]1.0201.005-1.025[facility] Urobilinogen Qn (U)0.2 {Trini'U}/dL0.2-1.0[facility] Lipase [Catalytic activity/Vol]28.0 U/L16.0-77.0[facility] DaytonMagnesium [Mass/Vol]1.9 mg/dL1.8-2.4FSelect Medical [facility] Laboratory - Hematology and Cell countson 64-76-5601Ezdaoyfy granulocytes/100 WBC (Bld)0.3 %0.0-0.5FSelect Medical [facility] Clinic [facility] Hospital, AvonLaboratory - Specimen informationon 57-41-3323Drqepbbddr (U)CLEARCLEARFSelect Medical [facility] Clinic [facility] Hospital, AvonColor (U)LT. YELLOWYELLOWAccess Hospital DaytonLaboratory - Urinalysison 68-60-3718Vwzqcxhqt esterase Test strip Ql (U)NegativeNEGATIVE [facility] DaytonNitrite Ql (U)NegativeNEGATIVEAccess Hospital DaytonProtein Ql (U)TRACE mg/dLNEG/TRACEAccess Hospital DaytonLeukocytes [#/volume] corrected for nucleated erythrocytes in Blood by Automated counon 71-04-1540ZUF corrected for nucl RBC Auto (Bld) [#/Vol]Leukocytes [#/volume] corrected for nucleated erythrocytes in Blood by Automated coun4.0-11.0[facility] Hospital DaytonLymphocytes Auto (Bld) [#/Vol]on 19-56-8277Cicswzepvwr (Bld) [#/Vol]Lymphocytes [#/volume] in Blood by Automated count1.2-3.8[facility] Hospital DaytonLymphocytes/100 WBC Auto (Bld)on 51-68-1995Pkrtaqajidw/100 WBC (Bld)Lymphocytes/100 leukocytes in Blood by Automated count20.5-60.0[facility] Hospital DaytonMCH Auto (RBC) [Entitic mass]on 35-27-7562QEU (RBC) [Entitic mass]MCH [Entitic mass] by Automated count26.7-34.0[facility] Hospital DaytonMCHC Auto (RBC) [Mass/Vol]on 95-26-0095QDIG (RBC) [Mass/Vol]MCHC [Mass/volume] by Automated yqytqAbwe53.9-35.2FSelect Medical Cleveland Clinic Rehabilitation Hospital, AvonMCV Auto (RBC) [Entitic vol] on 28-65-8693IPS (RBC) [Entitic vol]MCV [Entitic volume] by Automated count 81.0-99.0[facility] DaytonMonocytes Auto (Bld) [#/Vol]on 48-64-1856Pcvqidvag (Bld) [#/Vol]Automated blood monocyte count0.3-0.8[facility] DaytonMonocytes/100 WBC Auto (Bld)on 26-14-8913Mjvchqtok/100 WBC (Bld)Automated monocyte %1.7-12.0[facility] Neutrophils Auto (Bld) [#/Vol]on 90-83-4984Wdxpsuergnx (Bld) [#/Vol]Neutrophils [#/volume] in Blood by Automated count1.4-6.5FSelect Medical [facility] Neutrophils/100 WBC Auto (Bld)on 80-82-8237Prtumizfdig/100 WBC (Bld)Automated neutrophil %43.0-75.0[facility] DaytonNo Panel Informationon 32-53-2799Ulwyd Microscopic ReviewNOAccess Hospital DaytonUrine Occult BloodNegativeNEGATIVEAccess Hospital DaytonEosinophils # (Auto)0.1 10 3/uL0.0-0.7FSelect Medical Cleveland Clinic Rehabilitation Hospital, AvonHuman Chorionic Gonadotropin, QualNegativeNEGATIVEAccess Hospital DaytonImmature Granulocyte # (Auto)0.02 10 3/uL0.00-0.03[facility] Troponin I High Gqglwitxxhy40.3 pg/mL4.0-51.3FSelect Medical [facility] Comment on above:CUT-OFF POINTS HAVE BEEN ESTABLISHED [...] INFORMATION.Platelet mean volume Auto (Bld) [Entitic vol]on 20-92-6281Laclxmew mean volume (Bld) [Entitic vol] Platelet mean volume [Entitic volume] in Blood by Automated count9.5-13.5 [facility] DaytonPlatelets Auto (Bld) [#/Vol]on 11-04-2024 Platelets (Bld) [#/Vol]Platelets [#/volume] in Blood by Automated -411 [facility] DaytonRBC Auto (Bld) [#/Vol]on 56-90-0422XJJ (Bld) [#/Vol]Erythrocytes [#/volume] in Blood by Automated count4.20-5.40[facility] DaytonLaboratory - Chemistry and Chemistry - challengeon 28-11-9451Osxuulepg Ql (U)NegativeAccess Hospital DaytonGlucose (U) [Mass/Vol]NegativeAccess Hospital DaytonKetones Ql (U)Negative [facility] DaytonpH (U)5.0 [pH][facility] Specific gravity (U) [Rel density]1.020[facility] Urobilinogen (U) [Mass/Vol]0.2 mg/dLAccess Hospital DaytonLaboratory - Specimen informationon 21-26-2949Wmvhrywoyo (U)clearAccess Hospital DaytonColor (U)yellowAccess Hospital DaytonLaboratory - Urinalysison 98-59-6166Lfyrldvqo esterase Test strip Ql (U)NegativeAccess Hospital DaytonNitrite Ql (U)NegativeAccess Hospital DaytonProtein Ql (U)+++Access Hospital DaytonNo Panel Informationon 27-08-2408Vofbq Occult BloodNegativeAccess Hospital DaytonANES POSTPROC EVALon 01-98-9099LBOD POSTPROC EVALHNO ID: [id number] Author: MERRICK MELLO APRN.PRESSURE VESSEL INSPECTOR Service: ? Author Type: Nurse Inverter And Clipper Type: Anesthesia Postprocedure Evaluation Filed: 09/03/2024 10:48 Note Text: POST ANESTHESIA EVALUATION NOTE : 2000 Procedure Summary Date: 09/03/24 Room / Location: [facility] Anesthesia Start: 1026 Anesthesia Stop: 1043 [...] September 03, 2024 TIME: 10:47 AM CSN: [id number] Valley [facility] PRE-OPon 68-40-0701CVCZ PRE-OPHNO ID: [id number] Author: MERRICK MELLO APRN.CRNA Service: ? Author Type: Nurse Inverter And Clipper Type: Anesthesia Preprocedure Evaluation Filed: 09/03/2024 10:18 Note Text: ANESTHESIOLOGY DAY OF SURGERY NOTE : 2000 Procedure Information Date/Time: 09/03/24 1230 Scheduled providers: Dara Butler Jr., DO; Merrick Mello APRN.PRESSURE VESSEL INSPECTOR; Karla Ball, distributor cleaner: COLONOSCOPY DIAGNOSTIC Location: [facility] Endoscopy [facility] Estimated body mass index is 19.74 kg/m? [...] 48 hours of Surgery/Procedure. SIGNATURE: Merrick Mello APRN.PRESSURE VESSEL INSPECTOR PATIENT NAME: Chioma Alonzo DATE: September 03, 2024 TIME: 10:18 AM CSN: [id number] North Health Center 19-73-6113RvgzesauahbExplfzqug ASC Gastrointestinal Endoscopy Patient Name: Chioma Alonzo Procedure Date: 09/03/2024 10:20 AM Date of : 2000 Admit Type: Outpatient Age: 23 Gender: Female Note Status: Finalized Attending MD: Dara Butler Jr, DO, [id number] Procedure: Colonoscopy Indications: Generalized abdominal pain, Diarrhea, [...] the patient. Procedure Code(s): --- Professional --- 32558, Colonoscopy, flexible; with biopsy, single or multiple Diagnosis Code(s): --- Professional --- R10.84, Generalized abdominal pain R19.7, Diarrhea, unspecified R19.4, Change in bowel habit CPT copyright 2020 [employer]. All rights reserved. The codes documented in this report are preliminary and upon assistant infant teacher review may be revised to meet current compliance requirements. Attending Participation: I personally performed the entire procedure. MD Dara Egan Jr, DO 09/03/2024 10:46:48 AM This report has been signed electronically by Dara Butler Jr, DO Number of Addenda: 0 Note Initiated On: 09/03/2024 10:20 AM Procedure Start: 10:28:48 AM Procedure End: 10:42:27 AMNormalKeenan Private Hospital sigmoidoscopy studyon 95-47-1249Ypzzwimff ASC Gastrointestinal Endoscopy Patient Name: Chioma Alonzo Procedure Date: 09/03/2024 10:20 AM Date of : 2000 Admit Type: Outpatient Age: 23 Gender: Female Note Status: Finalized Attending MD: Dara Butler Jr, DO, [id number] Procedure: Colonoscopy Indications: Generalized abdominal pain, Diarrhea, [...] the patient. Procedure Code(s): --- Professional --- 09890, Colonoscopy, flexible; with biopsy, single or multiple Diagnosis Code(s): --- Professional --- R10.84, Generalized abdominal pain R19.7, Diarrhea, unspecified R19.4, Change in bowel habit CPT copyright 2020 [employer]. All rights reserved. The codes documented in this report are preliminary and upon assistant infant teacher review may be revised to meet current compliance requirements. Attending Participation: I personally performed the entire procedure. MD Dara Egan Jr, DO (more content not included)...PROVATIONUniversity Hospitals Parma Medical CenterRadiology Study observation (narrative)[facility] PHYSICALon 21-52-6746VHMCCZC PHYSICALHNO ID: [id number] Author: DARA BUTLER JR, DO Service: Gastroenterology [...] September 03, 2024 TIME: 10:18 AM PAGER/CONTACT #:[facility] Hill[facility]st HospitalHORTENCIA Gutierrez 70-00-2469RPRNSOW PROGHNO ID: [id number] Author: SERA GARNER RN Service: Nursing Author [...] Sera Garner RN In Department: [facility] ENDOSCOPY CENTER CULLMANNoGalion Community HospitalPathology biopsy report Ganga (Tiss)on 25-06-7775MLXB REPORTNoGalion Community Hospital Comment on above:Order Comment: Specimen Type: TISSUE SPECIMENOrdering Facility: [facility] Address: [address] [place], [place] [address]Result Comment: Surgical Pathology Report Case: [id number] Authorizing Provider: Dara Butler Jr., DO Collected: 09/03/2024 10:39 AM Ordering Location: [facility] Endoscopy Received: 09/03/2024 11:57 PM [facility] Pathologist: Ana Ledesma MD Specimen: Colon, Biopsy, random colon, r/o microscopic colitisPerformed By: #### 31842-4 ####[facility] LABCLIA [id number] [address] OF [facility] LABCLIA [id number] [address] OF [facility] HEALTHFINAL DIAGNOSIS [facility]st HospitalComment on above:Order Comment: Specimen Type: TISSUE SPECIMENOrdering Facility: [facility] Address: [address] [place], [place] [id number] Comment: A. Colon, biopsy: - Colonic mucosa with no diagnostic abnormalities. at 1426 ESTPerformed By: #### 20333-7 ####[facility] LABCLIA [id number] [address] LABCLIA [id number] [address]ETNoAshtabula County Medical Center on above:Order Comment: Specimen Type: TISSUE SPECIMENOrdering Facility: [facility] Address: [address] [place], [place] [address]Result Comment: Diagnostic interpretation performed at: [facility], [address] [place] [address] CLIA# [id number] Manager Assessment: SHAYE Schreibererformed By: #### 28049-8 ####[facility] LABCLIA [id number] [address] LABCLIA [id number] [address] on above:Order Comment: Specimen Type: TISSUE SPECIMENOrdering Facility: [facility] Address: [address] [place], [place] [address]Result Comment: A. Colon, Biopsy Received in formalin are multiple pieces of cano-brown, soft tissue aggregating to 1.8 x 0.3 x 0.2 cm. Totally submitted in one cassette. DL September 04, 2024 3:07 AM Gross examination performed at [facility], [address] [place], [place] [address]Performed By: #### 50750-8 ####[facility] LABCLIA [id number] [place] [id number] [facility] LABCLIA [id number] [address] OF AMERICAOffice Visiton 32-19-0259Fofvvb-up [id number] Chioma Alonzo 2000 F Date Provider Department Center 07/28/2024 PAULA BASILIO [facility] No family history on file Level of Service:72524 [place] OFFICE/OUTPATIENT ESTABLISHED LOW MDM 20 MIN (GC) Reason for Visit and Comments: Follow-up [938856] - Recurrent C Diff Nausea [70] Diarrhea [35] Constipation [975986]NormalUnCleveland Clinic South Pointe Hospital36on Follow-up message sent to patient via Dizkon.NormalToledo Hospital36on 08-90-072181Wodgaps LVM, hx of C Diff, reports she has a UTI and wants to know if Dificid is recommended to be taken along with her UTI atb? Please advise.NormalToledo HospitalLaboratory - Chemistry and Chemistry - challengeon 05-97-3751Jxraztnns Ql (U)NegativeAccess Hospital DaytonGlucose (U) [Mass/Vol]NegativeAccess Hospital DaytonKetones Ql (U)Negative [facility] Hospital DaytonpH (U)6.0 [pH][facility] Specific gravity (U) [Rel density]1.020[facility] Urobilinogen (U) [Mass/Vol]0.2 mg/dLAccess Hospital DaytonLaboratory - Specimen informationon 09-16-4248Nqaogxofwu (U)cloudyAccess Hospital DaytonColor (U)YellowAccess Hospital DaytonLaboratory - Urinalysison 99-90-2285Pocvxtyjm esterase Test strip Ql (U)NegativeAccess Hospital DaytonNitrite Ql (U)NegativeAccess Hospital Dayton Protein Ql (U)NegativeAccess Hospital DaytonNo Panel Informationon 87-05-0919Ddmdw Occult BloodNegativeAccess Hospital DaytonTelephoneon [id number] Chioma Alonzo 2000 F Date Provider Department Center 07/24/2024 SHYAM RUSH MP [facility] No family history on fileNormalUniversity of Baylor [facility] Center – TaylorUrine Culture on 94-05-0160Wxbffhqg identified Cx Nom (U)15,000 colonies/ml mixed bacterial skin contaminants 2 Days PERFORMED BY: [facility] [address] [facility]. [place] [id number] PATHOLOGIST SVP PROGRAMMATIC TV DEANNE CABELLO M.D.NormalThe Northern Regional Hospital Physician GroupComment on above: Performed By: #### CUU #### [facility] [address] [place] [id number] [place]25([place])D3 [facility] [address]25-bljvtisxhbzbgf D3 [Mass/Vol]39.8 ng/pXDhsilz71.0-80.0on HospitalComment on above:Order Comment: Specimen Type: BLOOD SPECIMEN [facility] Address: [address] [place], [place] [address]Result Comment: Classification of 25 [place] Vitamin D status: Deficiency/Insufficiency: < or = 30 ng/ml. Sufficiency/Optimal Levels: 31-80 ng/mL Toxicity: > 100 ng/mL. Test performed by chemiluminescent immunoassay.Performed By: #### 1989-3 #### [facility] CLIA [id number] [address] [place] [address] [place] [address] [place] AMERICACNOVon 66-27-9311BANFSpwqfn Visit (GILA) CHIOMA ALONZO ([id number]) 2000 F Date Time Provider Department 07/15/24 [...] touching your toes, sit-ups, using row machine correction pain recommendations per primary care provider/pain clinic [...] Abs Lymph 1.00 - 4.00 k/uL 2.06 Yolo% % 8.1 Abs Yolo <0.87 k/uL 0.42 Eosin% % 4.3 Abs [...] ccp<15, irena ifa, hepatitis panel, quantiferon tb; Hog Driver and always walking for exercise. NO swelling. [...] scalp tenderness, visual changes (more content not included)...NormalUC West Chester Hospitalon 66-24-4910PLESAgxhlmytg (RIOS) CHIOMA ALONZO ([id number]) 2000 F Date Time Provider Department 07/15/24 NAE IBARRA During your visit today, we recorded the following information about you: Nae Ibarra MD 07/15/2024 6:42 PM Signed Please Call patient if MyChart note not read to review results/released to My Chart if tests completed at F: normal labs. Take over the counter vitamin D 5507-1070 International Units daily with food. Happy to [...] 07/15/2024 Encounter Status:Closed by HAM THOMPSON on 07/17/24NoalCKettering Health PrebleCobalamin (Vitamin B12) [Mass/Vol]on 65-09-4909Oktfpbwcgfyruu and review of laboratory resultsNoSt. Mary's Medical Center, Ironton CampusLaboratory - Chemistry and Chemistry - challengeon 06-86-2164Lqokjyace (Vitamin B12) [Mass/Vol]841 pg/eI073-1063XljjouqyuUC Medical Centererum or plasma calcidiol measurement (mass/volume)on 71-43-485292155868-yxkgrclmlzoxrq D3 [Mass/Vol] Serum or plasma calcidiol measurement (mass/volume)31.0-80.0Access Hospital DaytonComment on above:Classification of 25 [place] Vitamin D status: Deficiency/Insufficiency: < or = 30 ng/ml.Sufficiency/Optimal Levels: 31-80 ng/mLToxicity: > 100 ng/mL. Test performed by chemiluminescent immunoassay. VITAMIN B12on 24-11-1880Qtuqfozgi (Vitamin B12) [Mass/Vol]841 pg/mL232 - 1245 pg/mLCgrand lake joint township district memorial hospital ClinicVit B12 SerPl-mCncon 98-72-3991Omvryrqxs (Vitamin B12) [Mass/Vol]841 pg/dPKiuumy146-5993Wqig HospitalComment on above:Order Comment: Specimen Type: BLOOD SPECIMEN [facility] Address: [address] [place], [place] [address]Pwkdciogi By: #### 2132-9 #### [facility] CLIA [id number] [facility] [place] [address] [place] OF AMERICABasophils Auto (Bld) [#/Vol]on 07-11-2024 Basophils (Bld) [#/Vol]Automated basophil count0.0-0.1FSelect Medical Cleveland Clinic Rehabilitation Hospital, AvonBasophils/100 WBC Auto (Bld)on 73-20-6658Xedooxnbb/100 WBC (Bld)Automated basophil %0.2-2.0Access Hospital DaytonEosinophils/100 WBC Auto (Bld)on 74-06-4562Hghppymdbua/100 WBC (Bld)Automated eosinophil %0.9-7.0 [facility] Hospital DaytonErythrocyte distribution width Auto (RBC) [Ratio]on 04-38-9461Xnqmsllkvye distribution width (RBC) [Ratio]Erythrocyte distribution width [Ratio] by Automated count11.0-15.0[facility] Hospital DaytonEstimated glomerular filtration rate (GFR) non- Americanon 71-49-7959DFR/1.73 sq M.predicted among non-blacks MDRD (S/P/Bld) [Vol rate/Area]Estimated glomerular filtration rate (GFR) non->=60 mL/min/1.73m 2FSelect Medical Cleveland Clinic Rehabilitation Hospital, AvonGlobulin Calc (S) [Mass/Vol]on 36-30-7895Zbwkmicy (S) [Mass/Vol]Serum globulin measurement by calculation (mass/volume)Access Hospital DaytonHCG ( test) IA.rapid Ql (U)on 94-28-5260QRQ ( test) Ql (U)Urine human chorionic gonadotropin (hCG) detection by immunoassayNEGATIVEAccess Hospital Dayton Hematocrit Auto (Bld) [Volume fraction]on 13-38-5357Xjixvefupu (Bld) [Volume fraction]Hematocrit [Volume Fraction] of Blood by Automated count36.0-48.0 [facility] Hospital DaytonHemoglobin [Mass/volume] in Bloodon 07-11-2024 Hemoglobin (Bld) [Mass/Vol]Hemoglobin [Mass/volume] in Blood12.0-16.0[facility] DaytonLaboratory - Chemistry and Chemistry - challengeon 31-89-2753Ljvburl [Mass/Vol]4.4 g/dL3.4-5.0[facility] DaytonALP [Catalytic activity/Vol]52 U/L44-985RugovykbaAccess Hospital DaytonALT [Catalytic activity/Vol]16 U/F45-04GibvpemwqAccess Hospital DaytonAST [Catalytic activity/Vol]18 U/O83-95KutzvtxguAccess Hospital DaytonBilirubin [Mass/Vol]0.9 mg/dL0.2-1.0[facility] Hospital DaytonCalcium [Mass/Vol]9.4 mg/dL8.5-10.1FSelect Medical Cleveland Clinic Rehabilitation Hospital, AvonChloride [Moles/Vol]103 mmol/L 98-107Access Hospital DaytonCO2 [Moles/Vol]26.9 mmol/L21.0-32.0 [facility] DaytonCreatinine [Mass/Vol]0.80 mg/dL0.55-1.02 [facility] DaytonGFR/1.73 sq M.predicted MDRD (S/P/Bld) [Vol rate/Area]mL/min/{1.73_m2}>=60 mL/min/1.73m 2FSelect Medical [facility] Clinic Rehabilitation [facility], [facility] Glucose [Mass/Vol]97 mg/dZ89-110VxpalnmndAccess Hospital DaytonLipase [Catalytic activity/Vol]25.0 U/L16.0-77.0[facility] Potassium [Moles/Vol]3.8 mmol/L3.5-5.1FSelect Medical Cleveland Clinic Rehabilitation Hospital, AvonProtein [Mass/Vol]7.9 g/dL6.4-8.2FAdena Fayette Medical Centerodium [Moles/Vol]140 mmol/V228-409TpsaykxbjAccess Hospital DaytonUrea nitrogen [Mass/Vol]9.0 mg/dL 7.0-18.0[facility] DaytonUrea nitrogen/Creatinine [Mass ratio] 11.2 mg/mgAccess Hospital DaytonBilirubin Ql (U)NegativeNEGATIVE [facility] DaytonGlucose (U) [Mass/Vol]NegativeNEGATIVEAccess Hospital DaytonKetones Ql (U)TRACE mg/dLAbnormalNEGATIVEAccess Hospital DaytonpH (U)6.0 [pH]5.0-9.0[facility] Specific gravity (U) [Rel density]1.0251.005-1.025Access Hospital DaytonUrobilinogen Qn (U)0.2 {Trini'U}/dL0.2-1.0[facility] DaytonLaboratory - Hematology and Cell countson 51-66-1649Gwsrjddf granulocytes/100 WBC (Bld)0.2 %0.0-0.5FSelect Medical [facility] Clinic [facility], [facility] Laboratory - Specimen informationon 24-63-0719Lpiafbsopd (U)CLEARCLEARFSelect Medical Cleveland Clinic Rehabilitation Hospital, AvonColor (U)LT. YELLOWYELLOWAccess Hospital DaytonLaboratory - Urinalysison 20-40-3451Jdmzzdusv esterase Test strip Ql (U) NegativeNEGATIVEAccess Hospital DaytonNitrite Ql (U)NegativeNEGATIVE [facility] DaytonProtein Ql (U)TRACE mg/dLNEG/TRACEAccess Hospital DaytonLeukocytes [#/volume] corrected for nucleated erythrocytes in Blood by Automated counon 66-75-3857BER corrected for nucl RBC Auto (Bld) [#/Vol]Leukocytes [#/volume] corrected for nucleated erythrocytes in Blood by Automated coun4.0-11.0[facility] Hospital DaytonLymphocytes Auto (Bld) [#/Vol]on 30-30-8896Dxwetwzeahv (Bld) [#/Vol]Lymphocytes [#/volume] in Blood by Automated count1.2-3.8Access Hospital DaytonLymphocytes/100 WBC Auto (Bld)on 38-46-0572Jzhtnjcomjb/100 WBC (Bld)Lymphocytes/100 leukocytes in Blood by Automated count20.5-60.0CentervilleH Auto (RBC) [Entitic mass]on 07-08-6083HWQ (RBC) [Entitic mass]MCH [Entitic mass] by Automated count26.7-34.0[facility] Hospital DaytonMCHC Auto (RBC) [Mass/Vol]on 47-42-9258WAQL (RBC) [Mass/Vol]MCHC [Mass/volume] by Automated count29.9-35.2FSelect Medical Cleveland Clinic Rehabilitation Hospital, AvonMCV Auto (RBC) [Entitic vol]on 82-32-2601MUI (RBC) [Entitic vol]MCV [Entitic volume] by Automated count 81.0-99.0[facility] Hospital DaytonMonocytes Auto (Bld) [#/Vol]on 31-58-4361Repoqgcft (Bld) [#/Vol]Automated blood monocyte count0.3-0.8Fire[facility] Regional Medical CenterMonocytes/100 WBC Auto (Bld)on 86-50-6194Yshpxuvyz/100 WBC (Bld)Automated monocyte %1.7-12.0[facility] Neutrophils Auto (Bld) [#/Vol]on 41-25-9666Fdgtyuxzoeq (Bld) [#/Vol]Neutrophils [#/volume] in Blood by Automated count1.4-6.5FSelect Medical [facility] Clinic Rehabilitation [facility], [facility] Neutrophils/100 WBC Auto (Bld)on 81-40-4285Pkzqviggxzp/100 WBC (Bld)Automated neutrophil %Low43.0-75.0Access Hospital DaytonNo Panel Informationon 97-59-3446Sgctpbsnpqo # (Auto)0.3 10 3/uL0.0-0.7FSelect Medical Cleveland Clinic Rehabilitation Hospital, AvonImmature Granulocyte # (Auto)0.01 10 3/uL0.00-0.03Access Hospital DaytonUrine Microscopic ReviewNOAccess Hospital DaytonUrine Occult BloodNegativeNEGATIVEAccess Hospital DaytonPlatelet mean volume Auto (Bld) [Entitic vol]on 64-33-9182Pxpdeeao mean volume (Bld) [Entitic vol]Platelet mean volume [Entitic volume] in Blood by Automated count9.5-13.5 [facility] Hospital DaytonPlatelets Auto (Bld) [#/Vol]on 07-11-2024 Platelets (Bld) [#/Vol]Platelets [#/volume] in Blood by Automated -896 [facility] Hospital DaytonRBC Auto (Bld) [#/Vol]on 34-90-9259RJW (Bld) [#/Vol]Erythrocytes [#/volume] in Blood by Automated count4.20-5.40UC Medical Centererum or plasma albumin/globulin mass ratioon 07-11-2024 Albumin/Globulin [Mass ratio]Serum or plasma albumin/globulin mass ratio UC Medical Centererum or plasma anion gap determinationon 73-02-5250Ehwth gap [Moles/Vol]Serum or plasma anion gap determinationAccess [facility] DaytonNo Panel Informationon 96-95-1843Tiirhonbgbc difficile (PCR)(LAB)PositiveAccess Hospital DaytonComment on above:RESULTS CALLED TO KIMMY OLGUIN AT OFFICE BY Allyssa Valdes at 1352[facility] TestCOMMENT.Access Hospital DaytonComment on above:Test Ordered: [id number] C difficile Toxins A+B, EIAC difficile Toxins A+B, EIA Negative CB Reference Range: NegativePerformed at: CB - [facility] [id number] [place], [place] [id number] Director: Kai Schuster PhD, Phone: [phone] Panel Informationon 62-26-1075Erbnp Chorionic Gonadotropin, Quant<1 mIU/mL Access [facility] DaytonComment on above:5-50 0.2-1 ILUO37-671 1-2 JMXAB504-6,000 2-3 IJLGJ820-46,000 3-4 WEEKS1,000-50,000 4-5 WEEKS10,000-100,000 5-6 WEEKS15,000-200,000 6-8 WEEKS10,000-100,000 2-3 MONTHSTBH PREG QUANT HCGon 38-82-3928HZH QUANTITATIVE<1mIU/mLNOMS HealthcareComment on above:5-50 0.2-1 WEEK 50-500 1-2 WEEKS 100-5,000 2-3 WEEKS 500-10,000 3-4 WEEKS 1,000-50,000 4-5 WEEKS 10,000-100,000 5-6 WEEKS 15,000-200,000 6-8 WEEKS 10,000-100,000 2-3 MONTHS CLINISYNCNOMS HealthcareCNPNon 27-65-8396FNAXCffgkwelc ([facility]) CHIOMA ALONZO ([id number]) 2000 F Date Time Provider Department 07/03/24 JAY THOMPSON [facility] During your visit today, we recorded the following information about you: Jorge Oropeza 07/03/2024 9:27 AM Addendum BLOCK CELIAC PLEXUS WITH C-ARM needs rescheduled. Please reach out to her to reschedule this. Shu Wilkins 07/07/2024 2:25 PM Signed BLOCK CELIAC PLEXUS WITH C-ARM CHIOMA ALONZO [id number] DESMOND HUFFMAN 07/21 -THINNERS -DM Patient was made aware that the ASC will call the day prior to scheduled procedure between the hours of 12 and 4 pm to advise patient of arrival time the day of procedure. Patient was advised that they will require a local combination truck driver on the day of their procedure, [...] Dr. Huffman from 07/04 to 07/21 in [place] per patient request. Shu Wilkins 07/08/2024 9:12 [...] Reason for Visit: Appointment [186] Schedule Injection [3329] Prescriptions as of 07/08/2024 - gabapentin (NEURONTIN) [...] 11/15/2023 Encounter Status:Closed by JORGE OROPEZA on 07/03/24[facility] Panel Informationon 66-55-2734Lkig of biopsy: tangential Informed consent: discussed and [...] taken yes Amount of lidocaine used: 0.4 [facility] M[employer]via NetworksNo Panel InformationOrdered By: Kayla Griffith on 92-20-2417TXIR Mirovia NetworksNo Panel Informationon 06-30-2024 Human Chorionic Gonadotropin, Quant8 mIU/mLAccess Hospital Dayton Comment on above:5-50 0.2-1 AWBP86-660 1-2 NKMAB401-9,000 2-3 RASBM287-53,000 3- 4 WEEKS1,000-50,000 4-5 WEEKS10,000-100,000 5-6 WEEKS15,000-200,000 6-8 WEEKS10,000-100,000 2-3 MONTHSBasophils Auto (Bld) [#/Vol]on 71-53-1766Gevoigdfp (Bld) [#/Vol]Automated basophil count0.0-0.1FSelect Medical [facility] Clinic [facility], [place] Basophils/100 WBC Auto (Bld)on 29-23-4463Iwpumpbae/100 WBC (Bld)Automated basophil %0.2-2.0Access Hospital DaytonEosinophils/100 WBC Auto (Bld) on 76-65-0119Pultvgjyftp/100 WBC (Bld)Automated eosinophil %0.9-7.0Access Hospital DaytonErythrocyte distribution width Auto (RBC) [Ratio]on 33-99-4932Jbgffepifzf distribution width (RBC) [Ratio]Erythrocyte distribution width [Ratio] by Automated count11.0-15.0[facility] Estimated glomerular filtration rate (GFR) non- Americanon 06-25-2024 GFR/1.73 sq M.predicted among non-blacks MDRD (S/P/Bld) [Vol rate/Area]Estimated glomerular filtration rate (GFR) non->=60 mL/min/1.73m 2 Access Hospital DaytonGlobulin Calc (S) [Mass/Vol]on 06-25-2024 Globulin (S) [Mass/Vol]Serum globulin measurement by calculation (mass/volume) Access Hospital DaytonHematocrit Auto (Bld) [Volume fraction]on 59-13-2818Igadvbavsx (Bld) [Volume fraction]Hematocrit [Volume Fraction] of Blood by Automated count36.0-48.0Access Hospital DaytonHemoglobin [Mass/volume] in Bloodon 07-93-5241Xumkelprbf (Bld) [Mass/Vol]Hemoglobin [Mass/volume] in Blood12.0-16.0Access Hospital DaytonLaboratory - Chemistry and Chemistry - challengeon 52-53-6064Jznjhky [Mass/Vol]4.1 g/dL 3.4-5.0Access Hospital DaytonALP [Catalytic activity/Vol]50 U/L46-116 [facility] DaytonALT [Catalytic activity/Vol]14 U/L14-59 [facility] DaytonAST [Catalytic activity/Vol]10 U/AVun50-99 [facility] DaytonBilirubin [Mass/Vol]1.1 mg/dLHigh0.2-1.0 [facility] DaytonCalcium [Mass/Vol]9.3 mg/dL8.5-10.1FSelect Medical Cleveland Clinic Rehabilitation Hospital, AvonChloride [Moles/Vol]105 mmol/B54-725UzicowetxAccess Hospital DaytonCO2 [Moles/Vol]24.5 mmol/L21.0-32.0Access Hospital DaytonCreatinine [Mass/Vol]0.73 mg/dL0.55-1.02[facility] [place] GFR/1.73 sq M.predicted MDRD (S/P/Bld) [Vol rate/Area]mL/min/{1.73_m2}>=60 mL/min/1.73m 2FSelect Medical Cleveland Clinic Rehabilitation Hospital, AvonGlucose [Mass/Vol]103 mg/rG61-618 Access [facility] DaytonPotassium [Moles/Vol]4.1 mmol/L3.5-5.1FSelect Medical Cleveland Clinic Rehabilitation Hospital, AvonProtein [Mass/Vol]7.3 g/dL6.4-8.2FAdena Fayette Medical Centerodium [Moles/Vol]139 mmol/I800-299BckdyxetqAccess Hospital DaytonUrea nitrogen [Mass/Vol]12.0 mg/dL7.0-18.0Access Hospital DaytonUrea nitrogen/Creatinine [Mass ratio]16.4 mg/mgAccess Hospital DaytonBilirubin Ql (U)NegativeNEGATIVEAccess Hospital DaytonGlucose (U) [Mass/Vol]NegativeNEGATIVEAccess Hospital DaytonKetones Ql (U)15 mg/dLAbnormalNEGATIVEAccess Hospital DaytonpH (U)5.5 [pH]5.0-9.0 UC Medical Centerpecific gravity (U) [Rel density]>=1.030 Abnormal1.005-1.025Access Hospital DaytonUrobilinogen Qn (U)0.2 {Trini'U}/dL0.2-1.0Access Hospital DaytonLaboratory - Hematology and Cell countson 78-03-8535Fmsbfaad granulocytes/100 WBC (Bld)0.3 %0.0-0.5 [facility] DaytonLaboratory - Specimen informationon 06-25-2024 Appearance (U)CLEARCLEARFSelect Medical Cleveland Clinic Rehabilitation Hospital, AvonColor (U)YELLOWYELLOW Access Hospital DaytonLaboratory - Urinalysison 85-76-5333Vdyczdhqu esterase Test strip Ql (U)NegativeNEGATIVEAccess Hospital DaytonMucus Ql (Urine sed)MODERATEAbnormalNONE SEENAccess Hospital DaytonNitrite Ql (U)NegativeNEGATIVEAccess Hospital DaytonProtein Ql (U)30 mg/dL AbnormalNEG/TRACEAccess Hospital DaytonLeukocytes [#/volume] corrected for nucleated erythrocytes in Blood by Automated counon 35-80-9853HWK corrected for nucl RBC Auto (Bld) [#/Vol]Leukocytes [#/volume] corrected for nucleated erythrocytes in Blood by Automated coun4.0-11.0Access Hospital DaytonLymphocytes Auto (Bld) [#/Vol]on 49-81-4525Awohbnhssbw (Bld) [#/Vol]Lymphocytes [#/volume] in Blood by Automated count1.2-3.8Access Hospital DaytonLymphocytes/100 WBC Auto (Bld)on 06-25-2024 Lymphocytes/100 WBC (Bld)Lymphocytes/100 leukocytes in Blood by Automated count Low20.5-60.0CentervilleH Auto (RBC) [Entitic mass]on 76-94-1663RQN (RBC) [Entitic mass]MCH [Entitic mass] by Automated count26.7-34.0 Access Hospital DaytonMCHC Auto (RBC) [Mass/Vol]on 20-62-5723FJQL (RBC) [Mass/Vol]MCHC [Mass/volume] by Automated count29.9-35.2FSelect Medical Cleveland Clinic Rehabilitation Hospital, AvonMCV Auto (RBC) [Entitic vol]on 17-64-9618YCU (RBC) [Entitic vol] MCV [Entitic volume] by Automated count81.0-99.0Access Hospital DaytonMonocytes Auto (Bld) [#/Vol]on 66-48-6530Hwmujcyqh (Bld) [#/Vol]Automated blood monocyte count0.3-0.8Access Hospital DaytonMonocytes/100 WBC Auto (Bld)on 52-49-5969Jghlwwacm/100 WBC (Bld)Automated monocyte %1.7-12.0 Access Hospital DaytonNeutrophils Auto (Bld) [#/Vol]on 06-25-2024 Neutrophils (Bld) [#/Vol]Neutrophils [#/volume] in Blood by Automated count 1.4-6.5FSelect Medical Cleveland Clinic Rehabilitation Hospital, AvonNeutrophils/100 WBC Auto (Bld)on 37-35-2395Yxvybubpflr/100 WBC (Bld)Automated neutrophil %43.0-75.0Access Hospital DaytonNo Panel Informationon 42-51-3860Abyzdreubry # (Auto)0.2 10 3/uL0.0-0.7FSelect Medical Cleveland Clinic Rehabilitation Hospital, AvonHuman Chorionic Gonadotropin, Quant32 mIU/mLAccess Hospital DaytonComment on above:5-50 0.2-1 UEUW83-383 1-2 POLCN388-4,000 2-3 KTPCJ272-67,000 3-4 WEEKS1,000-50,000 4-5 WEEKS10,000-100,000 5-6 WEEKS15,000-200,000 6-8 WEEKS10,000-100,000 2-3 MONTHS Immature Granulocyte # (Auto)0.02 10 3/uL0.00-0.03Access Hospital DaytonUrine BacteriaTRACE #/HPFAbnormalNONE [facility] CompanyUrine Culture ReflexedNOAccess Hospital DaytonUrine Microscopic ReviewYECincinnati Shriners HospitalUrine Occult BloodNegativeNEGATIVE Access Hospital DaytonUrine RBCNONE SEEN #/HPF0-2FSelect Medical Cleveland Clinic Rehabilitation Hospital, AvonUrine Squamous Epithelial CellsMODERATE #/LPFAbnormalNONE/RARE Access Hospital DaytonUrine WBCNONE SEEN #/HPFNONE [facility] CompanyPlatelet mean volume Auto (Bld) [Entitic vol]on 39-49-9330Rbmrmlcx mean volume (Bld) [Entitic vol]Platelet mean volume [Entitic volume] in Blood by Automated count9.5-13.5FSelect Medical [facility], [place] Platelets Auto (Bld) [#/Vol]on 62-36-4926Weutsorhv (Bld) [#/Vol]Platelets [#/volume] in Blood by Automated nizak047-058BngogqutuAccess Hospital Dayton RBC Auto (Bld) [#/Vol]on 20-58-3898VRY (Bld) [#/Vol]Erythrocytes [#/volume] in Blood by Automated count4.20-5.40UC Medical Centererum or plasma albumin/globulin mass ratioon 84-76-7554Vbnliov/Globulin [Mass ratio] Serum or plasma albumin/globulin mass ratioAccess Hospital Dayton Serum or plasma anion gap determinationon 14-89-8078Cvvks gap [Moles/Vol]Serum or plasma anion gap determinationAccess Hospital DaytonCNPNon 26-60-5815GSSRIakprczro (INMAVN) CHIOMA ALONZO ([id number]) 2000 F Date Time Provider Department 06/23/24 [...] 11/15/2023 Encounter Status:Closed by BONNY JOYNER on 06/23/24[facility] HospitalCNrozina 46-07-5813UWUBRxpwoukio (ORLORA) CHIOMA ALONZO ([id number]) 2000 F Date Time Provider Department 05/14/24 [...] 11/15/2023 Encounter Status:Closed by SHU WILKINS on 05/14/24[facility] HospitalANATelephone (ORALEXIAA) CHIOMA ALONZO N ([id number]) 2000 F Date Time Provider Department 05/14/24 THO HUFFMAN During your visit today, we recorded the following information about you: Shu Wilkins 05/14/2024 1:48 PM Signed diagnostic celiac plexus blockade CHIOMA ALONZO [id number] BHARATHI 07/04 -THINNERS -DM Patient was made aware that the ASC will call the day prior to scheduled procedure between the hours of 12 and 4 pm to advise patient of arrival time the day of procedure. Patient was advised that they will require a local combination truck driver on the day of their procedure, [...] neuritis [M79.2] Order(s):SURGICAL REQUEST - ELECTIVE (02/2020) [[id number]] Order #: [id number]: 1 Prescriptions as of 05/14/2024 - gabapentin [...] 11/15/2023 Encounter Status:Closed by SHU WILKINS on 05/14/24[facility] 54-47-9311EGNPMinbig Visit ([facility]) CHIOMA ALONZO ([id number]) 2000 F Date Time Provider Department 04/30/24 11:00 AM PAULA PRETTY [facility] During your visit today, we recorded [...] to display No d (more content not included)...NormalOhioHealth Marion General Hospitalgical pathology studyOrdered By: Diego Syed on 01-65-0908Pzjfdtwltg comment Ganga (Report) f6bbjGZvAHWcl2urVSHvyIKcAfWmDkXxSuPyEekeoMSmKAttklSuLDyje0JlV1RyWpQxBRmgloDhNEJj TthqeqazPJHcMFR8wkCi XDDiUTnvVJNoFSkhGe4gmCZxoDacZrMjJXKyg7pqxvHGKLfdYTOPRFp1t0asYBRyNbI8hPPqYSzbV3tk fjRnuHOvY9Pcb9ZsKPf9 wZ90YSGzzD3upZAqYVvatgBuOnF6RJdmNNTyRxN2DGBlrMAeCFNpM4soZYGoXPhbSSNfUClxrRGdCYY6 nVidx0R0vNWiuHIuaVbj WnXgUgIwKbCDr3GoIQp5fRchX6PpCNDgOoX2uAOoGJGzRCrqDFRbFVSrqzR4sW10BNmekyF8pFSic0Uf u18yn006dC5ziARjXJM8 RPVnJWYduYBaVFZlXUH0XWSeiVLyT5lkInCjzEDhL3YaObQqkGSpI9KhErPwwRVlJ8XbNyGouSYmEXUg dEE7AMzdx374KHA7DfCc HC1nH3Koa2I4rA1qzIYnIYIlcOHaKwOjYARzpw5yfOAhREnmj6BxZRC8xuK1cDZdaJWdAWMfVD68Fajo j2WqIlbqGMZ3NURdmlFn x6Nqq0ecVuRkmrCmK8wwE8NrVTUjQPVhZOFfDiImvzOyl9Nyu1IivWSluPb2c7tvFIMyWYYudBdnq3hc EBI6SGYcQ6V8nWUyh6pa LGfkEDZrfBL9baK4CEkgLDJbpfW4evS6CKyrOHBcrXS6qnD5KDhcRJQsSbH1uiA0ZXfdZUBbVCI5YmDe MJLdh2JebqeuKhIrn7Ka nTSaEIcxC46ry049FQYxxuRpF0ispHTstawtfPHkmyzfNRboxtP3KSJiWTSiQAzxMQMoMSLzQrBjqUBk ZzEwMzNcaGljaFxmMVxk ZoUrVCCrAPmbX6dxDdXtAcRgZHNLlMX0zWRky5jxouB2lTQcPG7wDNOazMFookRip4F2EZB0nCPpxM2b gVFvAYGbkWMrtyWhuk77 gCDydND2AXIfJRFypRLifB2kBLUmDSNVrQ8xkVHUuuCldkSlBZIaqTqkfz7XbKJesd1bfRKdH7GbrXst lGRsWFDkEZAqlClsnPBoMMFsZVSzufpwj3PuVPUtbJKnD4XoOP5tPRAcdj67Spwsmnvvcs [facility] Work Phone: Pathology report Cancer NarrativeSurgical Pathology Case: [id number] Authorizing Provider: Whitney Ambriz MD MPH Collected: 04/16/2024 1012 Ordering Location: [facility] Received: 04/17/2024 0929 Center Pathologist: Diego Syed MD PhD Specimens: A) - DUODENUM SECOND PART BIOPSY, Cold Bx B) - ANTRUM BODY BIOPSY, Evaluate for H pylori and Gastritis [facility] Work Phone: Pathology report final diagnosis Narrative e3ggyOFkNAGsqKZhQVozBsgehbFzWMKduQViM7UhudqpPHzcQY0zEK4tdHaygXVpdRVxANZkOfCnb3vi q179uRSqm9zoICXMaghq uWq3bTtzQ76rc7S0IkwtQ4ulJEEeGNfkICLlKLkmmAFuKHj4FVEmlMPzbhPxMrVaDHOrpJDwpLK3LFId OB6hucapJCzvNHwzMAGk czC5GDSltCUsV5EsPNPsNN3hhguxVZM1GYvhREEjTEA7BqQyUCNvn9Vwyjx0WgXqlQt1q0riDGOrNVVc iNybb1caNYG5KWZnwWIu N1mjwF1lYBUhVJ5pbfjas0unOAclMUbiDESakRO1avG7GZSqfZJdU3XwuV5zGRWeEAUpwyMikLshqN0k HmmlbqKuVERiRUK7x7Dm naThUMZMXKXvkaCjQLNupZkkRrodhLH8XtyeIJQyANMqzoLkBFCAt1IuBAzmANRsJNTfZOsbrHMql0If LiBObyBpbnRyYWVwaXRo OWnaMXiyjPipoNcpQ8y2j2Faeo3fZy4ocJVyWOSzpTexwUCfBNIovLf2FRP9oGDdVtzbYLAdsIQjJIJx Cy6fP9ZbkUEmqXgpEP17 irLoGXSvVIPAp3V0WOVAzG7yi0b2LXHuYAMjiWXoVNGwerOpJ2XsQF1xXJygMjJnXBTcalYudWjnndYw NL29P48oPJK8nTJpDKZt YL8oP5LjUYhav7AgfHPkqeQtpa0br8Clnd3kAMQoOZMlbBigpD7zlLUcaAS9t1M4VNOkzEuxRVQgsCzx UYNxAhz8fYtjGNWfNsqs YWYprhWmWLORknPUTMvpA12oWBQ8DNKuiDexn2OvGI2yL0CinLMbknQpsiUscCOwyePhBmbgFV4yhCSe XHBhcn0=[facility] Work Phone: Pathology report gross observation Narrative e8kveKWyAWSmzPHrEMieZwwjifQzBQUzaLDrC0FfbmqhLOurXI2pQM3qjQzikNZvqPJjNJBaRhOtb8on s605yVUdm4nxVBYFexts rKa5sIuhF00cd0A5UlrhL27wxAWcTRP1BZRrTEUjaAYhVTSiZAU3YQZrtALyK2piCVKxRA1duqusGUqp LFptFBNacOJ4LLZnjHLw W1XhQZVuHWloPVYvjff5LhHyUz2dtJXzzHbqZOvoWaulmYvix4VuyLBpYRdrNEPbPZZqLFfeikdkINq4 BIXuGUlpgQXjVS1aqBjw SwpowTnvg2DkkIKgXUydVHVlIRAaXZqhCQLoK3KXXAEsBIk6KGY6KcYpEAx3OXu6AC9IVuQfCBJjBbm6 VUT5YsIwOGk8VLwvKT5B NOEuQcR6XWT3WvbrKVH0YpXcHGjddDGkNXZbTjCxVQXfLJNfKIpdrISpEI5ybQlgHNZvTPJqSzSnSIDm M2reKpFxXZUgTVebLVJs BlFrFUqtVaCyNDd0XJHdyA0uEv2cuSYxnG9uDVujAmQjMRJsi7z3hFS2bJQxkIJ1cJXnyHegVW6sxDWk PS1rVIzwr8YeyVBoIR44 kWUufkTnziZkOzXGs6xfZVUQDijbGOJjDPV8dpQgqcXswZIcsBVyp6RekESjQEEfx7A1SICgj6X8HQCh G7mgVNaedImrZsV4icCf DB01GOogDV6gDQmoDL3bVVJxQoEIxYQqz7WmJ9rbZO6oeXLrp6FkuCg3tWIfXZnoSMTsuX5fbS6hg16w QTAxo1WnkDOfJzznPFHn xEUsJLVPBKBwUvCZRESdkwkrVMZaJLUrgTFYg7TyOSrfUYYtT1LoD8BjytG0KXWcdimqHldjaUyua9Uk dCBcXGlkIDUxMDAyIFxc LGJmF0MJVBGzLXm1PFW1XnQuYUj9ENg2YE1FUmFxMSWqDvx2JVR2EnZzIRm9SAniUL5HLBMqVeV3UYV9 HZKfBAD6XcMyULlijCRo VNYrRfBeTPVpTWTgNRphzCLkTE6zxUjgXKQaZSPkRCH2THQpnICTt4PwPaEgeThxjT2wIbFwAWTEFqNW RTVrkSZwQMToaxZtf1Eo QQqopjijfZInFGajVMA9bQLvQBJqVGRkCIGhRS72J5EpwuLaPDBvgmUevE4fqNd2REyiepPxPpCwLWWa GGWyFKUluJFysEDnTj2n ZDjpZRO0fI1huWAtdaFteA4qZEQyxeCjwJvaWMEwSXfkSM13esDiJeB1WO0wWWGiEsKjoYyux3JpTBFi C8LmT4J9pY5gAMErQMBg YbMdfFDcHnLunDWoDvOyH65kLAHnOOTzoCJzgY0vrdQqrbMlsRPenRW4HRYtsA9xhL42guLhaiLzrnWx N6Bvo1A2eHUaEXCvjxrq WEUwUTTWKy3SR8LukIGuYJHoRwSoDNWxI7gqPIIlEKO5NTRsfUEgVHY5AD3ucBboDDVnK0CeY4AxfxS2 XHBhcn0=[facility] Work Phone: Pathology report relevant history Narrative g0fibKPdTXTreRCvEYhfBhmuxfUoSCLxcVOpU2QakfpaGXhhUC9dYO8hsDlroMIsmGHsGCEcVkIhh1dl v854fAYxu9heKDEOlsjl yOg8wEqjI82js4J7OwhuE49eeNCnJTD4YVBeLHBvqCJsLMIdVVQ5RBVqcPEcX3fnBCZqUX8xteugDQyb SDsoRITrmZH4DCHljDWz M6CjYTStGFygBAUaqmt9GzMnOa8dcRWzxQbxAYaqJZEnCREdSUhmBFWlJsImFHCldRLyVIPmQ5XuhPFy dRdxIV5kgiSyw7wgDRHq nRHeDSVXLc8JC3HrKNiOGrstLH4rnHNtUNJxQSR5IFh0DYFgBNCwqgJANPoqNSNaFUrfGCNnPAuuNLTj SnaqMWHmqWIhaWWlFc7sUWgjg9LfhLForrXatmNvAU6NySyknhhypREsiH==Bpmfgxjnkv [facility] Work Phone: UnK[facility] Work Phone: CNJeff [facility] [phone] (GASTNO) CHIOMA ALONZO ([id number]) 2000 F Date Time Provider Department 04/24/24 [...] 11/15/2023 Encounter Status:Closed by GISELA PONCE on 04/24/24[facility] Study observation Narrativeon 46-87-2469Tdqnk formatting from the original result was not [...] Ambriz MD MPH 04/16/2024 1016 Procedure Location [facility] [address] [facility] [address] Referring Provider Whitney Ambriz MD MPH Procedure Provider Whitney Ambriz MD MPH [facility] Work Phone: Radiology Study observation (narrative)[facility] Work Phone: EGD Study observation NarrativeOrdered By: Whitney Ambriz on 51-03-1912ZtxhdxwvnrKettering Health Hamilton Work Phone: hcg ( test) Ql (U)on 99-11-3704Unioanpjkipoqb and review of laboratory resultsNormalUniOhio State East Hospital Work Phone: Prej Test, UrNegativeNegativeUnKettering Health Hamilton Work Phone: Un[facility] Work Phone: CNOVon 23-41-2485DHSQAcgyck Visit ([facility]) CHIOMA ALONZO ([id number]) 2000 F Date Time Provider Department 03/26/24 11:00 AM PAULA PRETTY [facility] During your visit today, we recorded [...] 11/15/2023 Encounter Status:Closed by PAULA PRETTY on 03/26/24NormalCuniversity hospitals geauga medical centerand [facility] - ValdeseNo Panel Informationon 49-74-1438Ptmrqkopn [facility] diff Tox gens Stl Ql RUCHI+probeon 03-13-2024. difficile toxin genes RUCHI+probe Ql (Stl)NegativeNormal Negative for C. difficile toxin by PCRSelect Medical Specialty Hospital - Southeast OhioComment on above:Order Comment: Specimen Type: STOOL SPECIMENOrdering Facility: [facility] Address:[address] [place], [place] [address]Performed By: #### [id number] ####[facility] LABCLIA [id number] [place] [address] [place] AMER[place]. DIFFICILE PCRon 03-13-2024. difficile toxin genes RUCHI+probe Ql (Stl)NegativeNegative for C. difficile toxin by PCRMcKitrick Hospital. difficile toxin genes RUCHI+probe Ql (Stl)on 68-15-8456Jlhegjgvlbuenx and review of laboratory resultsNormalCleveland St. Anthony's HospitalCNOVon 04-83-2319HCJBEozpzg Visit (GGENMN) CHIOMA ALONZO ([id number]) 2000 F Date Time Provider Department 02/26/24 [...] HISTORY No date: COLONOSCOPY (more content not included)...NormalMercy Health [facility] Gastrointestinal tract upper Views W barium contrast Aime 54-36-0198EQZCOFDDXD: Mild gastroesophageal reflux and mild esophageal dysmotility. Otherwise, unremarkable upper GI series. Fire Extinguisher Installer: FRANCISCO Transcribe Date/Time: Feb 11 2024 11:34A Dictated by : ANJALI HALEY MD This examination was interpreted and the report reviewed and electronically signed by: ANJALI HAELY MD on Feb 11 2024 4:03PM [facility]* * *Final Report* * * [...] somewhat limited assessment of the gastric cardia/fundus. [facility] RADIOLOGYProvider, f Imaging Coin - 02/11/2024 * * *Final Report* * [...] esophageal dysmotility. Otherwise, unremarkable upper GI series. Fire Extinguisher Installer: FRANCISCO Transcribe Date/Time: Feb 11 2024 11:34A Dictated by : ANJALI HALEY MD This examination was interpreted and the report reviewed and electronically signed by: ANJALI HALEY MD on Feb 11 2024 4:03PM EST [facility] CenterRadiology Study observation (narrative)[facility] Medical CenterRF Gastrointestinal tract upper Views W barium contrast POOrdered By: Ccf Provider on 00-41-0726Ynotfiexp ClinicXR UPPER GI SINGLE CONTRASTon 57-74-3319IZ UPPER GI SINGLE CONTRAST* * *Final Report* [...] esophageal dysmotility. Otherwise, unremarkable upper GI series. Fire Extinguisher Installer: FRANCISCO Transcribe Date/Time: Feb 11 2024 11:34A Dictated by : ANJALI HALEY MD This examination was interpreted and the report reviewed and electronically signed by: ANJALI HALEY MD on Feb 11 2024 4:03PM EST [id number] State HospitalNM GASTRIC EMPTYING SOLIDon 43-51-3180XG GASTRIC EMPTYING SOLID* * *Final Report* * [...] which lowers the sensitivity of the study. Fire Extinguisher Installer: FRANCISCO Transcribe Date/Time: Jan 30 2024 2:09P Dictated by : JOSELUIS MORA MD This examination was interpreted and the report reviewed and electronically signed by: JOSELUIS MORA MD on Jan 30 2024 2:10PM [facility] [id number] [facility] Hospital Stomach Views for gastric emptying solid phase W radionuclide Aime [id number]: Normal rate of gastric emptying of a solid meal. However patient consumed less than the standard meal, which lowers the sensitivity of the study. Fire Extinguisher Installer: FRANCISCO Transcribe Date/Time: Jan 30 2024 2:09P Dictated by : JOSELUIS MORA MD This examination was interpreted and the report reviewed and electronically signed by: JOSELUIS MORA MD on Jan 30 2024 2:10PM [facility] RADIOLOGY* * *Final Report* * * [...] retention at 4 hours (normal range, 0-10%). [facility] - 01/30/2024 * * *Final Report* * [...] which lowers the sensitivity of the study. Fire Extinguisher Install[facility] Transcribe Date/Time: Jan 30 2024 2:09P Dictated by : JOSELUIS MORA MD This examination was interpreted and the report reviewed and electronically signed by: JOSELUIS MORA MD on Jan 30 2024 2:10PM [facility] (narrative)[facility] Stomach Views for gastric emptying solid phase W radionuclide POOrdered By: Ccf Provider on [id number] ClinicCNPNon 83-29-2695FYQJXpniqeolj (MODESTO) CINDYCHIOMA Newberry Jovana ([id number]) 2000 F Date Time Provider Department 01/29/24 [...] 11/15/2023 Encounter Status:Closed by VITOR HARP on 01/29/24[facility] [id number]: [id number] Received: 01/02/24 Status: TRUDY Mosley Num: [id number] Spec Type: Surgical Subm Dr: Ana Bolton DO Tissues: A Appendix - Other than Incidental (APPENDIX) Procedures: HE/2, Gross/Micro L3 Age/ Patient Sex Location Account Attending Physician Chioma Alonzo 23/F LABELL [id number] Ana Bolton DO SPEC NUM: [id number] RECD: 01/02/24 STATUS: TRUDY MOSLEY NUM: [id number] RAQUEL: 01/01/[address]: Ana Bolton DO ENTERED: 01/02/[address] [facility] [address]: Verena Bettencourt SPEC TYPE: Surgical [...] masses or areas of perforation are identified. Industrial Engineering Technician sections are submitted in A1 (base and midportion)?A2 (entire distal tip). CPT Codes 65792 Specimen: [id number] Received: 01/02/24 Status: TRUDY Mosley Num: [id number] Spec Type: Surgical Subm Dr: Ana Bolton, Tissues: A Appendix - Other than Incidental (APPENDIX) Procedures: MARI/Tiffanie Morris/Laxmi L3 Patient: Chioma Alonzo [id number] (Continued) Signed (signature on file) Deanne Cabello MD 01/03/[address] [place] [address] Physician GroupSurgical PathologyOrdered By: Jasmin Hatch on 86-04-2202LqfHcdnqwOhioHealth Berger HospitalCNOVon 51-32-1124GSXGXcbfll Visit ([facility]) CHIOMA ALONZO ([id number]) 2000 F Date Time Provider Department 12/28/23 3:00 PM DARA BUTLER JR [facility] During your visit today, we [...] an issue, start amitriptyline. Consider referral to [facility] if symptoms fail to improve. [...] last colonoscopy was 8 months ago in [place]. Start amitriptyline Keep appt with Dr. Menon [...] divisum. 12/01/22 HIDA scan was done at [facility]: Normal study EF 69% US: 10/31/22: (care everywhere) Liver normal Gallbaldder appears normal with no stones or sludge. No gallblad (more content not included)...NormalSelect Medical Specialty Hospital - Southeast OhioAmylase SerPl-cCncon 12-27-2023 Amylase [Catalytic activity/Vol]44 U/JZjzygh62-980UzoauwadkSelect Medical Specialty Hospital - [facility] [place] Comment on above:Order Comment: Specimen Type: BLOOD SPECIMENOrdering Facility: [facility] Address:[address] [place] [address] Performed By: #### 1798-8, 1987-, 3040-3 ####[facility] LABCLIA [id number] [facility] [id number] [address] [place] AMERICABasophils Auto (Bld) [#/Vol]on 34-37-4182Hqucnpcun (Bld) [#/Vol]0.04 10*3/uL<0.11[facility] DaytonBasophils/100 WBC Auto (Bld)on 32-18-1030Guezihhxj/100 WBC (Bld)0.8 %[facility] Hospital DaytonBlood manual differential comment interpretation narrativeon 68-15-9463Mufrgf differential comment Ganga (Bld) [Interp]AutoAccess Hospital DaytonCB W Auto Differential panel (Bld)on 01-26-4497Kukuelmbw (Bld) [#/Vol]0.04 10*3/uL Normal<0.11CKettering Health PrebleComment on above:Order Comment: Specimen Type: BLOOD SPECIMENOrdering Facility: [facility] Address:[address] [place], [place] [address]Performed By: #### 69718-3 ####[facility] LABCLIA [id number] [place] [address] Basophils/100 WBC (Bld)0.8 %NormalSumma Health Akron Campus on above: Order Comment: Specimen Type: BLOOD SPECIMENOrdering Facility: [facility] Address:[address] [place], [place] [address]Performed By: #### 56165- 8 ####[facility] LABCLIA [id number] [place], [place] [address]Dosjsjdrwspv cell count method Nom (Bld)AutoNormal [facility] on above:Order Comment: Specimen Type: BLOOD SPECIMENOrdering Facility: [facility] Address:[address] [place], [place] [address]Performed By: #### 93609-8 ####[facility] LABCLIA [id number] [place], [place] [address]Qbxfwzmvstr (Bld) [#/Vol]0.22 10*3/uLNormal<0.46[facility] on above: Order Comment: Specimen Type: BLOOD SPECIMENOrdering Facility: [facility] Address:[address] [place], [place] [address]Performed By: #### 95658- 8 ####[facility] LABCLIA [id number] [place], [place] [address]Zbzitqobhff/100 WBC (Bld)4.3 %NormalSumma Health Akron Campus on above:Order Comment: Specimen Type: BLOOD SPECIMENOrdering Facility: [facility] Address:[address] [place], [place] [address]Performed By: #### 44024-3 ####[facility] LABCLIA [id number] [place], [place] [address]Wmnwdddtcmq distribution width (RBC) [Ratio]11.6 %Hezlby92.5-15.0[facility] on above: Order Comment: Specimen Type: BLOOD SPECIMENOrdering Facility: [facility] Address:[address] [place], [place] [address]Performed By: #### 71477- 8 ####[facility] LABCLIA [id number] [place], [place] [address]Zxmggfsfmt (Bld) [Volume fraction]41.5 %Ljjtro31.0-46.0 [facility] on above:Order Comment: Specimen Type: BLOOD SPECIMENOrdering Facility: [facility] Address:[address] [place], [place] [address]Performed By: #### 29393-9 ####[facility] LABCLIA [id number] [place], [place] [address]Zhewialpmp (Bld) [Mass/Vol]14.1 g/jIJkbnyt01.5-15.5CTriHealth Good Samaritan [facility] on above: Order Comment: Specimen Type: BLOOD SPECIMENOrdering Facility: [facility] Address:[address] [place], [place] [address]Performed By: #### 57954- 8 ####[facility] LABIA [id number] [place], [place] [address]Gjkaepdx granulocytes (Bld) [#/Vol]10*3/uLNormal<0.10 [facility] on above:Order Comment: Specimen Type: BLOOD SPECIMENOrdering Facility: [facility] Address:[address] [place], [place] [address]Performed By: #### 87571-6 ####[facility] LABCLIA [id number] [place], [place] [address]Xtudbonq granulocytes/100 WBC (Bld)0.2 %NormalSumma Health Akron Campus on above: Order Comment: Specimen Type: BLOOD SPECIMENOrdering Facility: [facility] Address:[address] [place], [place] [address]Performed By: #### 30574- 8 ####[facility] LABCLIA [id number] [place], [place] [address]Wqhdqsenyve (Bld) [#/Vol]2.06 10*3/uLNormal1.00-4.00 [facility] on above:Order Comment: Specimen Type: BLOOD SPECIMENOrdering Facility: [facility] Address:[address] [place], [place] [address]Performed By: #### 49840-4 ####[facility] LABCLIA [id number] [place], [place] [address]Ncfohwpfndn/100 WBC (Bld)39.8 %NormalSumma Health Akron Campus on above:Order Comment: Specimen Type: BLOOD SPECIMENOrdering Facility: [facility] Address:[address] [place], [place] [address]Performed By: #### 07727-7 ####[facility] LABCLIA [id number] [place], [place] [address]WGY (RBC) [Entitic mass]31.5 dhMhcabv35.0-34.0[facility] on above:Order Comment: Specimen Type: BLOOD SPECIMENOrdering Facility: [facility] Address:[address] [place], [place] [address]Performed By: #### 43971-3 ####[facility] LABCLIA [id number] [place], [place] [address]SGIV (RBC) [Mass/Vol]34.0 g/kZBpbhtv65.5-36.0[facility] on above: Order Comment: Specimen Type: BLOOD SPECIMENOrdering Facility: [facility] Address:[address] [place], [place] [address]Performed By: #### 78667- 8 ####[facility] LABCLIA [id number] [place], [place] [address]VPY (RBC) [Entitic vol]92.6 kEWdtqaw90.0-100.0[facility] on above:Order Comment: Specimen Type: BLOOD SPECIMENOrdering Facility: [facility] Address:[address] [place], [place] [address]Performed By: #### 42103-7 ####[facility] LABCLIA [id number] [place], [place] [address]Rsmfshirt (Bld) [#/Vol]0.42 10*3/uLNormal<0.87[facility] on above:Order Comment: Specimen Type: BLOOD SPECIMENOrdering Facility: [facility] Address:[address] [place], [place] [address]Performed By: #### 80298- 8 ####[facility] LABCLIA [id number] [place], [place] [address]Vedvmkxbz/100 WBC (Bld)8.1 %NormalSumma Health Akron Campus on above:Order Comment: Specimen Type: BLOOD SPECIMENOrdering Facility: [facility] Address:[address] [place], [place] [address]Performed By: #### 73632-4 ####[facility] LABCLIA [id number] [place], [place] [address]Sjdylymuqii (Bld) [#/Vol]2.42 10*3/uLNormal1.45-7.50[facility] on above:Order Comment: Specimen Type: BLOOD SPECIMENOrdering Facility: [facility] Address:[address] [place], [place] [address]Performed By: #### 48214-5 ####[facility] LABCLIA [id number] [place], [place] [address]Msuiwmfewoh/100 WBC (Bld)46.8 %NormalSumma Health Akron Campus on above:Order Comment: Specimen Type: BLOOD SPECIMENOrdering Facility: [facility] Address:[address] [place], [place] [address]Performed By: #### 24208-7 ####[facility] LABCLIA [id number] [place], [place] [address]Nsyjhrooe RBC (Bld) [#/Vol] 10*3/uLNormal<0.01[facility] on above:Order Comment: Specimen Type: BLOOD SPECIMENOrdering Facility: [facility] Address:[address] [place], [place] [address]Performed By: #### 15081-8 ####[facility] LABCLIA [id number] [place], [place] [address]Bexqkjhpj RBC/100 WBC (Bld) [Ratio]0.0 /100 WBCNormal [facility] on above:Order Comment: Specimen Type: BLOOD SPECIMENOrdering Facility: [facility] Address:[address] [place], [place] [address]Performed By: #### 31589-7 ####[facility] LABIA [id number] [place], [place] [address]Iuktpots mean volume (Bld) [Entitic vol]10.5 fLNormal9.0-12.7CTriHealth Good Samaritan Hospital on above:Order Comment: Specimen Type: BLOOD SPECIMENOrdering Facility: [facility] Address:[address] [place] [address] Performed By: #### 79788-2 ####[facility] LABIA [id number] [place], [place] [address]Mgrvvyqnk (Bld) [#/Vol]179 10*3/vMSkcvie700-353KlveexmokSumma Health Akron Campus on above:Order Comment: Specimen Type: BLOOD SPECIMENOrdering Facility: [facility] Address:[address] [place], [place] [address]Performed By: #### 90731-3 ####[facility] LABCLIA [id number] [place], [place] [address]WKA (Bld) [#/Vol]4.48 10*6/uLNormal3.90-5.20[facility] on above:Order Comment: Specimen Type: BLOOD SPECIMENOrdering Facility: [facility] Address:[address] [place], [place] [address]Performed By: #### 12742-3 ####[facility] LABCLIA [id number] [place], [place] [address]YBA (Bld) [#/Vol]5.17 10*3/uLNormal3.70-11.00[facility] on above: Order Comment: Specimen Type: BLOOD SPECIMENOrdering Facility: [facility] Address:[address] [place], [place] [address]Performed By: #### 82203- 8 ####[facility] LABIA [id number] [place], [place] [address]VYG SerPl-mCncon 45-78-8213DTU [Mass/Vol]mg/LNormal<0.9 [facility] on above:Order Comment: Specimen Type: BLOOD SPECIMENOrdering Facility: [facility] Address:[address] [place], [place] [address]Performed By: #### 1798-8, 1987-5, 3040-3 ####[facility] LABCLIA [id number] [place] [address] [id number] [place] STATES OF AMERICAComprehensive metabolic 2000 panelon 12-27-2023 Albumin [Mass/Vol]4.6 g/dLNormal3.9-4.9CTriHealth Good Samar[facility] on above:Order Comment: Specimen Type: BLOOD SPECIMENOrdering Facility: [facility] Address:[address] [place], [place] [address]Performed By: #### 61676-3 ####[facility] LABIA [id number] [place], [place] [address]WFD [Catalytic activity/Vol]53 U/XXhjith70-590 [facility] on above:Order Comment: Specimen Type: BLOOD SPECIMENOrdering Facility: [facility] Address:[address] [place], [place] [address]Performed By: #### 55360-0 ####[facility] LABCLIA [id number] [facility]EN[facility], [place] [address]JCI [Catalytic activity/Vol]9 U/LNormal7-38[facility] on above:Order Comment: Specimen Type: BLOOD SPECIMENOrdering Facility: [facility] Address:[address] [place], [place] [address]Performed By: #### 67642- 8 ####[facility] LABCLIA [id number] [facility] [place], [place] [address]Uchma gap [Moles/Vol]6 mmol/LLow8-15[facility] on above:Order Comment: Specimen Type: BLOOD SPECIMENOrdering Facility: [facility] Address:[address] [place], [place] [address]Performed By: #### 63223-8 ####[facility] LABCLIA [id number] [facility], [place] [address]XQB [Catalytic activity/Vol]14 U/NRrnuzk89-45XtlkgpcpnSumma Health Akron Campus on above:Order Comment: Specimen Type: BLOOD SPECIMENOrdering Facility: [facility] Address:[address] [place], [place] [address]Performed By: #### 31304-4 ####[facility] LABCLIA [id number] [facility] [address] Bilirubin [Mass/Vol]0.5 mg/dLNormal0.2-1.3CTriHealth Good Samar[facility] on above:Order Comment: Specimen Type: BLOOD SPECIMENOrdering Facility: [facility] Address:[address] [place], [place] [address]Performed By: #### 36035-7 ####[facility] LABCLIA [id number] [facility] [place], [place] [address]Cumnbfe [Mass/Vol]10.2 mg/dLNormal8.5-10.2CTriHealth Good Samar[facility] on above:Order Comment: Specimen Type: BLOOD SPECIMENOrdering Facility: [facility] Address:[address] [place], [place] [address]Performed By: #### 09843-8 ####[facility] LABCLIA [id number] [place], [place] [address]Txyxenyf [Moles/Vol]103 mmol/GVzzbmf59-086TmncbwrhnSumma Health Akron Campus on above: Order Comment: Specimen Type: BLOOD SPECIMENOrdering Facility: [facility] Address:[address] [place], [place] [address]Performed By: #### 54198- 8 ####[facility] LABCLIA [id number] [place], [place] [address]ZL3 [Moles/Vol]28 mmol/DXfcwac53-32IpyzcrpleSumma Health Akron Campus on above:Order Comment: Specimen Type: BLOOD SPECIMENOrdering Facility: [facility] Address:[address] [place], [place] [address]Performed By: #### 78922-6 ####[facility] LABCLIA [id number] [place], [place] [address]Dapojarrvy [Mass/Vol]0.68 mg/dL Normal0.58-0.96[facility] on above:Order Comment: Specimen Type: BLOOD SPECIMENOrdering Facility: [facility] Address:[address] [place], [place] [address]Performed By: #### 69431-3 ####[facility] LABCLIA [id number] [place], [place] [address]Ozoxmizagd and Glomerular filtration rate.predicted panel (S/P/Bld)124 mL/min/1.73m???Normal>=60[facility] on above:Order Comment: Specimen Type: BLOOD SPECIMENOrdering Facility: [facility] Address:[address] [place], [place] [address]Result Comment: Estimated Glomerular Filtration Rate (eGFR) is [...] not accurately reflect actual GFR.Performed By: #### 84000-1 ####[facility] LABCLIA [id number] [place], [place] [address]Pamzhqy [Mass/Vol]97 mg/aMDufyui42-09DbyidupjnSumma Health Akron Campus on above:Order Comment: Specimen Type: BLOOD SPECIMENOrdering Facility: [facility] Address:[address] [place] [address]Mcdybg Comment: The [place] Diabetes Association (ADA) provides guidance for cutoff [...] Standards of Medical Care in Diabetes 2016, [place] [employer]. Diabetes Care. 2016.39(Suppl 1).Performed By: #### 01568-2 ####[facility] LABCLIA [id number] [place], [place] [address]Zrtmrcnqm [Moles/Vol]4.3 mmol/LNormal3.7-5.1CTriHealth [facility] on above:Order Comment: Specimen Type: BLOOD SPECIMENOrdering Facility: [facility] Address:[address] [place], [place] [address]Lyxkhugcj By: #### 53404-5 ####[facility] LABCLIA [id number] [place], [place] [address]Bhxlyhl [Mass/Vol]7.2 g/dLNormal6.3-8.0[facility] on above:Order Comment: Specimen Type: BLOOD SPECIMENOrdering Facility: [facility] Address:[address] [place], [place] [address]Performed By: #### 32304- 8 ####[facility] LABCLIA [id number] [place], [place] [address]Hwqork [Moles/Vol]137 mmol/CBbqgps322-144JogbguxawSumma Health Akron Campus on above:Order Comment: Specimen Type: BLOOD SPECIMENOrdering Facility: [facility] Address:[address] [place], [place] [address]Performed By: #### 19353-5 ####[facility] LABCLIA [id number] [place], [place] [address]Zjvj nitrogen [Mass/Vol]13 mg/dLNormal7-21[facility] on above:Order Comment: Specimen Type: BLOOD SPECIMENOrdering Facility: [facility] Address:[address] [place], [place] [address]Performed By: #### 67481-9 ####[facility] LABCLIA [id number] [place], [place] [address]ZWI Westergren method (Bld) [Velocity]on 17-45-2636AGV (Bld) [Velocity]12 mm/hNormal0-20[facility] on above: Order Comment: Specimen Type: BLOOD SPECIMENOrdering Facility: [facility] Address:[address] [place], [place] [address]Performed By: #### 4537-7 ####[facility] LABCLIA [id number] [facility] [place]18SPZZPMRDFJ[place] [id number] [place] AMERICAEosinophils/100 WBC Auto (Bld)on 72-62-7922Digsonjpzdv/100 WBC (Bld)4.3 %[facility] Erythrocyte distribution width Auto (RBC) [Ratio]on 98-10-0986Qphkeabfzhj distribution width (RBC) [Ratio]11.6 %11.5-15.0[facility] Hematocrit Auto (Bld) [Volume fraction]on 24-70-2104Acfonntyil (Bld) [Volume fraction]41.5 %36.0-46.0[facility] Hospital DaytonHemoglobin [Mass/volume] in Bloodon 47-72-9638Hvrslwsuvy (Bld) [Mass/Vol]14.1 g/dL11.5-15.5 [facility] DaytonLaboratory - Chemistry and Chemistry - challengeon 95-21-0738Vhuiqsv [Mass/Vol]4.6 g/dL3.9-4.9[facility] DaytonALP [Catalytic activity/Vol]53 U/V87-183RluszniwnAccess Hospital DaytonALT [Catalytic activity/Vol]9 U/L7-38[facility] Amylase [Catalytic activity/Vol]44 U/D29-640SkokvlvynAccess Hospital DaytonAST [Catalytic activity/Vol]14 U/G05-13NqruxtpwnAccess Hospital DaytonBilirubin [Mass/Vol]0.5 mg/dL0.2-1.3FSelect Medical Cleveland Clinic Rehabilitation Hospital, AvonCalcium [Mass/Vol] 10.2 mg/dL8.5-10.2FSelect Medical Cleveland Clinic Rehabilitation Hospital, AvonChloride [Moles/Vol]103 mmol/V41-200XjbwbainuAccess Hospital DaytonCO2 [Moles/Vol]28 mmol/L22-30 [facility] DaytonCreatinine [Mass/Vol]0.68 mg/dL0.58-0.96 [facility] DaytonGlucose [Mass/Vol]97 mg/gK61-48HkqzcnmcmAccess Hospital DaytonComment on above:The [place] Diabetes Association (ADA) provides guidance for cutoff [...] diabetes.Reference: Standardsof Medical Care in Diabetes 2016, [place] Diabetes Association. Diabetes Care. 2016.39(Suppl 1).Lipase [Catalytic activity/Vol]22 U/Q23-97VdeqfnybgAccess Hospital DaytonPotassium [Moles/Vol]4.3 mmol/L3.7-5.1 [facility] Centerodium [Moles/Vol]137 mmol/T975-117XfttoghwhAccess Hospital DaytonUrea nitrogen [Mass/Vol]13 mg/dL7-21Access Hospital DaytonLaboratory - Hematology and Cell countson 44-42-5943Dkhokjvmigp (Bld) [#/Vol]0.22 10*3/uL<0.46[facility] Hospital DaytonESR (Bld) [Velocity]12 mm/h0-20[facility] DaytonImmature granulocytes/100 WBC (Bld)0.2 %[facility] Hospital DaytonLeukocytes [#/volume] corrected for nucleated erythrocytes in Blood by Automated counon 42-91-2618HBW corrected for nucl RBC Auto (Bld) [#/Vol]5.17 k/uL3.70-11.00[facility] Hospital DaytonLipase SerPl-cCncon 94-19-1444Stjzoh [Catalytic activity/Vol]22 U/LNormal 16-61[facility] OhioComment on above:Order Comment: Specimen Type: BLOOD SPECIMENOrdering Facility: [facility] Address:[address] [place], [place] [address]Performed By: #### 1798-8, 5, 3040-3 ####[facility] LABCLIA [id number] [place] [address] [place] OF AMERICALymphocytes Auto (Bld) [#/Vol]on 12-27-2023 Lymphocytes (Bld) [#/Vol]2.06 10*3/uL1.00-4.00[facility] Lymphocytes/100 WBC Auto (Bld)on 99-55-8411Ikdjxppsgrz/100 WBC (Bld)39.8 % [facility] Hospital DaytonMCH Auto (RBC) [Entitic mass]on 59-47-8447CYN (RBC) [Entitic mass]31.5 pg26.0-34.0[facility] Hospital DaytonMCHC Auto (RBC) [Mass/Vol]on 53-37-8562CVAP (RBC) [Mass/Vol]34.0 g/dL30.5-36.0[facility] Hospital DaytonMCV Auto (RBC) [Entitic vol]on 43-73-6768VZP (RBC) [Entitic vol]92.6 fL80.0-100.0[facility] Hospital DaytonMonocytes Auto (Bld) [#/Vol]on 28-63-0248Muxtirdwf (Bld) [#/Vol]0.42 10*3/uL<0.87[facility] DaytonMonocytes/100 WBC Auto (Bld)on 19-46-7762Sidcflpmy/100 WBC (Bld)8.1 %[facility] Hospital DaytonNeutrophils Auto (Bld) [#/Vol]on 20-36-8479Cxmzjdstcpf (Bld) [#/Vol]2.42 10*3/uL1.45-7.50Access Hospital DaytonNeutrophils/100 WBC Auto (Bld)on 95-08-7929Lozmtsuhuvq/100 WBC (Bld)46.8 %[facility] Hospital DaytonNo Panel Informationon 29-76-9778R- Reactive Protein, Quantitative<0.3 mg/dL<0.9[facility] Estimated GFR (CKD-EPI)124 mL/min/1.73m???>=60[facility] Comment on above:Estimated Glomerular Filtration Rate (eGFR) [...] accurately reflect actual GFR.Immature Granulocyte # (Auto)<0.03 k/uL<0.10[facility] Hospital DaytonNucleated RBC Auto (Bld) [#/Vol]on 62-51-0464Tzkrakutc RBC (Bld) [#/Vol]10*3/uL<0.01 [facility] DaytonNucleated erythrocytes [Presence] in Blood by Automated counton 38-16-3013Wcnwqclpt RBC Auto Ql (Bld)0.0 /100{WBC}[facility] Hospital DaytonPlatelet mean volume Auto (Bld) [Entitic vol]on 39-98-1510Oasiqfoo mean volume (Bld) [Entitic vol]10.5 fL9.0-12.7FSelect Medical Cleveland Clinic Rehabilitation Hospital, AvonPlatelets Auto (Bld) [#/Vol]on 47-56-1821Wsoprddix (Bld) [#/Vol]179 10*3/oN823-300BtcduubeuAccess Hospital DaytonProtein [Mass/volume] in Serum or Plasmaon 71-05-0128Rtbyqao [Mass/Vol]7.2 g/dL6.3-8.0[facility] Hospital DaytonRBC Auto (Bld) [#/Vol]on 50-75-9557HHJ (Bld) [#/Vol]4.48 10*6/uL3.90-5.20UC Medical Centererum or plasma anion gap determinationon 17-91-3168Zwimr gap [Moles/Vol]6 mmol/LLow8-15Access Hospital DaytonCNCOon 08-50-2683CAIUAujjoc TextNormalCKettering Health Preble CNOVon 25-11-8514VRRPHxavxg Visit ([id number]) CHIOMA ALONZO ([id number]) 2000 F Date Time Provider Department 12/05/23 2:00 PM ARIELLA MCCOY [id number] During your visit today, we recorded the [...] Ariella Mccoy APRN.CNP Referring Provider: ANALIA HOLLIDAY [[id number]] Allergies As of Date: 12/05/2023 Noted Allergy Reaction METRONIDAZOLE 09/07/2020 1 - Mental Status Change 6 - Diarrhea 8 - GI Upset 4 - Hives 14 - Other: See Comments 2 - Rash 12 - Shortness of Breath 16 - Unknown 11 - Vomiting Date Reviewed: 12/05/2023 Reviewed by: Ariella Mccoy APRN.INSULATION WORKER INTERIOR SURFACE - Fully Assessed Reason for Visit: Post [...] for Encounter Date Provider Department Center 12/05/2023 [id number] MCCOY [id number] [facility] Encounter Status:Closed by ARIELLA MCCOY on 12/05/23[facility]AN[facility] POSTPROC EVALon 24-10-1761IFCM POSTPROC EVALHNO ID: [id number] Author: MOSHE KRISHNAMURTHY DO Service: Anesthesiology Author [...] November 21, 2023 TIME: 5:47 PM CSN: [id number] Luke's Hospital PRE-OPon 85-05-9099ILBD PRE-OPHNO ID: [id number] Author: MOSHE KRISHNAMURTHY DO Service: Anesthesiology Author [...] November 21, 2023 TIME: 2:08 PM CSN: [id number] [facility] NOTon 11-21-2023 BRIEF OP NOTHNO ID: [id number] Author: ANA LLANES MD Service: General Surgery Author Type: Resident Type: Brief Op Note Filed: 11/21/2023 15:32 Note Text: GENERAL SURGERY BRIEF OPERATIVE NOTE Chioma Alonzo [id number] LOG ID: [id number] Surgery/Procedure Date: 11/21/2023 Incision/Procedure Start Time: 2:30 PM Incision Close/Procedure End Time: 3:23 PM Surgeon(s)/Proceduralist(s) and Wood Shingle Roofer(s): Surgeon(s) and Role: * Seema Davis MD [...] 21, 2023 TIME: 3:31 PM PAGER/CONTACT #: [phone] HospitalOPERATIVE NOon 80-28-4850TZACRWCIB NOHNO ID: [id number] Author: SEEMA DAVIS MD Service: General Surgery Author Type: Physician Type: Operative Report Filed: 11/23/2023 14:05 Note Text: [facility] - Operative Report CHIOMA ALONZO : 2000 AGE: 23. SEX: F PATIENT TYPE: A HOSP SV: [facility] LOCATION: [facility] ATTENDING PHYSICIAN: Seema Davis M.D. CSN NUMBER: [id number] DATE OF SURGERY/PROCEDURE: 11/21/2023 INCISION/PROCEDURE START TIME: 2:30 PM INCISION CLOSE/PROCEDURE END TIME: 3:23 PM PREOPERATIVE DIAGNOSIS: Epigastric and right upper quadrant abdominal pain. POSTOPERATIVE DIAGNOSIS: Epigastric and right upper quadrant abdominal pain. SURGEON: Seema Davis M.D. MATHEMATICAL SCIENCES PROFESSOR: Ana Llanes M.D. SURGERY/PROCEDURE: Laparoscopic cholecystectomy. ANESTHESIA: [...] infraumbilical site was closed with a single [id number]-[id number] #0 Vicryl suture, local anesthetic was infiltrated and this was closed in layers with 3-0 Vicryl. The 5 mm sites were closed with 4-0 Monocryl. The wounds were washed and dried and Exofin glue applied. Patient was awakened and taken to Recovery in satisfactory condition. All counts were correct x2. I was present for the entire operation. Seema Davis M.D. :[id number] /[id number] [facility] ED [id number] EDHNO ID: [id number] Author: JUAN NIEVES RN Service: Nursing Author [...] REFERRAL (RECOMMENDATION): None Electronically Signed By: Juan RaderW[facility] EDHNO ID: [id number] Author: CRISTI WITT RN Service: ? Author [...] REFERRAL (RECOMMENDATION): None Electronically Signed By: Cristi [facility] PATHOLOGYon [id number] REPORTTewksbury State HospitalComment on above:Order Comment: Specimen Type: TISSUE SPECIMENOrdering Facility: [facility] Address: [address] [place] [address] Comment: Surgical Pathology Report Case: [id number] Authorizing Provider: Seema Davis MD Collected: 11/21/2023 02:39 PM Ordering Location: [facility] Received: 11/22/2023 07:43 AM Operating Room Pathologist: Woodrow Rain MD Specimen: GallbladderPerformed By: #### S ####[facility] LABCLIA [id number] [address] HISTORYTewksbury State HospitalComment on above:Order Comment: Specimen Type: TISSUE SPECIMENOrdering Facility: [facility] Address: [address] [place], [place] [id number] Comment: Pre-op diagnosis: Cholecystitis [K81.9]Performed By: #### S ####[facility] LABCLIA [id number] [address] StreetComment on above:Order Comment: Specimen Type: TISSUE SPECIMENOrdering Facility: [facility] Address: [address] [place] [place], [place] [id number] Comment: A. Gallbladder, cholecystectomy: -Gallbladder with no diagnostic abnormality. Performed By: #### S ####[facility] LABCLIA [id number] [address]ETFINAL PERFORMING LAB [facility]ks[facility] State HospitalComment on above:Order Comment: Specimen Type: TISSUE SPECIMENOrdering Facility: [facility] Address: [address] [place] [address]Duhzxr Comment: Diagnostic interpretation performed at [facility], [address] [place], [place] [address] CLIA# [id number] Manager Assessment: Roverto Coleman M.D.Performed By: #### S ####[facility] LABCLIA [id number] [address] STATES OF AMERICAGROSS DESCRIPTIONA. GallbladderNormWaltham HospitalComment on above:Order Comment: Specimen Type: TISSUE SPECIMENOrdering Facility: [facility] Address: [address] [place], [place] [address]Result Comment: Received in formalin designated gallbladder is [...] with a wall thickness of 0.1 cm. Industrial Engineering Technician sections are submitted in 1 cassette. WE November 22, 2023 11:51 AM Gross examination performed at [facility], [address] [place], [place] [address]Performed By: #### S ####[facility] LABCLIA [id number] [place] [address] [place] OF AMERICABasophils Auto (Bld) [#/Vol]on 68-33-8898Ynpsxpfvx (Bld) [#/Vol]0.04 10*3/uL<0.11[facility] DaytonBasophils/100 WBC Auto (Bld)on 11-42-8208Kzikuhnvz/100 WBC (Bld)0.7 %[facility] Hospital DaytonBlood manual differential comment interpretation narrativeon 53-27-6636Zwexgm differential comment Ganga (Bld) [Interp]AutoAccess Hospital DaytonCBC W Auto Differential panel (Bld)on 27-90-9891Jupymucgm (Bld) [#/Vol]0.04 10*3/uL NINFCgrand lake joint township district memorial hospital ClinicBasophils/100 WBC (Bld)0.7 %[facility] CenterDifferential cell count method Nom (Bld)AutoCleveland ClinicEosinophils (Bld) [#/Vol]0.19 10*3/uLNINFUniversity Hospitals Parma Medical CenterEosinophils/100 WBC (Bld)3.4 %[facility] Erythrocyte distribution width (RBC) [Ratio]11.6 %11.5 - 15.0 %[facility] Hematocrit (Bld) [Volume fraction]37.7 %36.0 - 46.0 %[facility] CenterHemoglobin (Bld) [Mass/Vol]12.6 g/dL11.5 - 15.5 g/dLUniversity Hospitals Parma Medical CenterImmature granulocytes (Bld) [#/Vol]NINFClevelMain Campus Medical CenterImmature granulocytes/100 WBC (Bld)0.2 % [facility] Medical CenterLymphocytes (Bld) [#/Vol]2.43 10*3/uLUniversity Hospitals Parma Medical Center Lymphocytes/100 WBC (Bld)43.6 %[facility] SystemH (RBC) [Entitic mass]31.9 pg 26.0 - 34.0 pgCLancaster Municipal HospitalHC (RBC) [Mass/Vol]33.4 g/dL30.5 - 36.0 g/dL Trinity Health SystemV (RBC) [Entitic vol]95.4 fL80.0 - 100.0 fLCSt. Mary's Medical Center, [facility]onton Campus Monocytes (Bld) [#/Vol]0.47 10*3/uLNINFUniversity Hospitals Parma Medical CenterMonocytes/100 WBC (Bld) 8.4 %[facility] Medical CenterNeutrophils (Bld) [#/Vol]2.43 10*3/uLUniversity Hospitals Parma Medical Center Neutrophils/100 WBC (Bld)43.7 %[facility] CenterNucleated RBC (Bld) [#/Vol]NINF [facility] CenterNucleated RBC/100 WBC (Bld) [Ratio]0.0 %/100 WBCUniversity Hospitals Parma Medical Center Platelet mean volume (Bld) [Entitic vol]10.5 fL9.0 - 12.7 fLCSt. Mary's Medical [facility], [facility] Platelets (Bld) [#/Vol]201 10*3/uLUniversity Hospitals Parma Medical CenterRBC (Bld) [#/Vol]3.95 10*6/uL 3.90 - 5.20 m/[facility] Health SystemWBC (Bld) [#/Vol]5.57 10*3/[facility] HospitalBasophils (Bld) [#/Vol]0.04 10*3/uLNormal<0.11[facility] Comment on above:Order Comment: Specimen Type: BLOOD SPECIMEN [facility] Address: [address] [place], [place] [address]Performed By: #### 31761-3 #### [facility] CLIA [id number] [address] [place] [address] [place] AMERICABasophils/100 WBC (Bld)0.7 %NormalAv HospitalComment on above:Order Comment: Specimen Type: BLOOD SPECIMEN [facility] Address: [address] [place], [place] [address]Performed By: #### 95013-7 #### [facility] CLIA [id number] [address] [place] [address] [place] AMERICADifferential cell count method Nom (Bld) AutoNormalAvon HospitalComment on above:Order Comment: Specimen Type: BLOOD SPECIMEN [facility] Address: [address] [place], [place] [address]Performed By: #### 94859-8 #### [facility] CLIA [id number] [address] [place] [address] [place] AMERICAEosinophils (Bld) [#/Vol]0.19 10*3/uL Normal<0.46Avon HospitalComment on above:Order Comment: Specimen Type: BLOOD SPECIMEN [facility] Address: [address] [place], [place] [address]Performed By: #### 92813-6 #### [facility] CLIA [id number] [address] [place] [address] [place] AMERICAEosinophils/100 WBC (Bld)3.4 %NormalAv HospitalComment on above:Order Comment: Specimen Type: BLOOD SPECIMEN [facility] Address: [address] [place], [place] [address]Performed By: #### 34786-2 #### [facility] IA [id number] [address] [place] [address] [place] AMERICAErythrocyte distribution width (RBC) [Ratio]11.6 %Qcnxuz50.5-15.0Avon HospitalComment on above:Order Comment: Specimen Type: BLOOD SPECIMEN [facility] Address: [address] [place], [place] [address]Performed By: #### 03642-8 #### [facility] IA [id number] [address] [place] [address] [place] OF AMERICAHematocrit (Bld) [Volume fraction]37.7 % Mzojux26.0-46.0Av HospitalComment on above:Order Comment: Specimen Type: BLOOD SPECIMEN [facility] Address: [address] [place], [place] [address]Performed By: #### 47406-7 #### [facility] IA [id number] [address] [place] [address] [place] AMERICAHemoglobin (Bld) [Mass/Vol]12.6 g/dL Kebkxz19.5-15.5Avon HospitalComment on above:Order Comment: Specimen Type: BLOOD SPECIMEN [facility] Address: [address] [place], [place] [address]Performed By: #### 71337-6 #### [facility] IA [id number] [address] [place] [address] [place] AMERICAImmature granulocytes (Bld) [#/Vol] 10*3/uLNormal<0.10Avon HospitalComment on above:Order Comment: Specimen Type: BLOOD SPECIMEN [facility] Address: [address] [place], [place] [address]Performed By: #### 74454-2 #### [facility] IA [id number] [address] [place] [address] [place] AMERICAImmature granulocytes/100 WBC (Bld)0.2 % NormalAv HospitalComment on above:Order Comment: Specimen Type: BLOOD SPECIMEN [facility] Address: [address] [place], [place] [address]Performed By: #### 87388-8 #### [facility] CLIA [id number] [address] [place] [address] [place] OF AMERICALymphocytes (Bld) [#/Vol]2.43 10*3/uL Normal1.00-4.00Av HospitalComment on above:Order Comment: Specimen Type: BLOOD SPECIMEN [facility] Address: [address] [place], [place] [address]Performed By: #### 58515-3 #### [facility] IA [id number] [place] [address] [place] OF AMERICALymphocytes/100 WBC (Bld)43.6 %NormalAv HospitalComment on above:Order Comment: Specimen Type: BLOOD SPECIMEN [facility] Address: [address] [place], [place] [address]Performed By: #### 69705-3 #### [facility] IA [id number] [address] [place] [address] [facility] (RBC) [Entitic mass]31.9 pgNormal 26.0-34.0Av HospitalComment on above:Order Comment: Specimen Type: BLOOD SPECIMEN [facility] Address: [address] [place], [place] [address]Performed By: #### 29183-7 #### [facility] IA [id number] [place] [address] [facility] (RBC) [Mass/Vol]33.4 g/dLNormal 30.5-36.0Av HospitalComment on above:Order Comment: Specimen Type: BLOOD SPECIMEN [facility] Address: [address] [place], [place] [address]Performed By: #### 48476-5 #### [facility] IA [id number] [address] [place] [address] [place] AMERICAMCV (RBC) [Entitic vol]95.4 fLNormal 80.0-100.0Av HospitalComment on above:Order Comment: Specimen Type: BLOOD SPECIMEN [facility] Address: [address] [place], [place] [address]Performed By: #### 02749-3 #### [facility] IA [id number] [address] [place] [address] [place] AMERICAMonocytes (Bld) [#/Vol]0.47 10*3/uLNormal <0.87Av HospitalComment on above:Order Comment: Specimen Type: BLOOD SPECIMEN [facility] Address: [address] [place], [place] [address]Performed By: #### 52650-0 #### [facility] IA [id number] [address] [place] [address] [place] AMERICAMonocytes/100 WBC (Bld)8.4 %NormalAv HospitalComment on above:Order Comment: Specimen Type: BLOOD SPECIMEN [facility] Address: [address] [place], [place] [address]Performed By: #### 99896-7 #### [facility] IA [id number] [address] [place] [address] [place] AMERICANeutrophils (Bld) [#/Vol]2.43 10*3/uL Normal1.45-7.50Av HospitalComment on above:Order Comment: Specimen Type: BLOOD SPECIMEN [facility] Address: [address] [place], [place] [address]Performed By: #### 08683-0 #### [facility] IA [id number] [address] [place] [address] [place] AMERICANeutrophils/100 WBC (Bld)43.7 %NormalAv HospitalComment on above:Order Comment: Specimen Type: BLOOD SPECIMEN [facility] Address: [address] [place], [place] [address]Performed By: #### 68731-6 #### [facility] IA [id number] [address] [facility] [place] [address] [place] AMERICANucleated RBC (Bld) [#/Vol]10*3/uLNormal <0.01Avon HospitalComment on above:Order Comment: Specimen Type: BLOOD SPECIMEN [facility] Address: [address] [place], [place] [address]Performed By: #### 54560-2 #### [facility] IA [id number] [address] [place] [address] [place] AMERICANucleated RBC/100 WBC (Bld) [Ratio]0.0 /100 WBCNormalAvon HospitalComment on above:Order Comment: Specimen Type: BLOOD SPECIMEN [facility] Address: [address] [place], [place] [address]Performed By: #### 01331-8 #### [facility] IA [id number] [address] [place] [address] [place] AMERICAPlatelet mean volume (Bld) [Entitic vol] 10.5 fLNormal9.0-12.7Avon HospitalComment on above:Order Comment: Specimen Type: BLOOD SPECIMEN [facility] Address: [address] [place], [place] [address]Performed By: #### 40445-3 #### [facility] IA [id number] [address] [facility] [place] [address] [place] AMERICAPlatelets (Bld) [#/Vol]201 10*3/uLNormal 150-400Avon HospitalComment on above:Order Comment: Specimen Type: BLOOD SPECIMEN [facility] Address: [address] [place], [place] [address]Performed By: #### 83324-2 #### [facility] IA [id number] [address] [facility] [place] [address] [facility] HOSPITALRB (Bld) [#/Vol]3.95 10*6/uLNormal 3.90-5.20Av HospitalComment on above:Order Comment: Specimen Type: BLOOD SPECIMEN [facility] Address: [address] [id number] By: #### 65461-3 #### [facility] CLIA [id number] [address] [place] [address] [facility] HOSPITALW (Bld) [#/Vol]5.57 10*3/uLNormal 3.70-11.00Av HospitalComment on above:Order Comment: Specimen Type: BLOOD SPECIMEN [facility] Address: [address] [place] [id number] By: #### 87916-9 #### [facility] CLIA [id number] [address]CNPNon [id number] (AVPANE) CHIOMA ALONZO ([id number]) 2000 F Date Time Provider Department 11/15/23 [...] as scheduled? Event monitor preliminary reading in [employer] Cardiac Outpatient Recording/Telemetry [ID [id number]] ECHO completed in [employer]. Of note she also has been [...] Sedrick Rushing MD You; Wilfredo Avila OCCA; [facility] Card Nurse 9 hours ago (10:29 PM) [...] PM Signed Faxed Cardiac Clearance form to [facility] at [phone]. Scanned into chart. CHATO Ramirez Allergies As [...] 11/15/2023 Encounter Status:Closed by MADHU CAUSEY on 11/16/23[facility] Comprehensive metabolic 2000 panelon 02-04-0285Trbynfv [Mass/Vol]4.4 g/dL3.9 - 4.9 g/dLCantril ClinicALP [Catalytic activity/Vol]47 U/L34 - 123 U/LCleveland ClinicALT [Catalytic activity/Vol]8 U/L7 - 38 U/LCleveland ClinicAnion gap [Moles/Vol]11 mmol/L9 - 18 mmol/LCleveland ClinicAST [Catalytic activity/Vol]18 U/L13 - 35 U/LCleveland ClinicBilirubin [Mass/Vol]0.4 mg/dL0.2 - 1.3 mg/dL [facility]ril ClinicCalcium [Mass/Vol]9.6 mg/dL8.5 - 10.2 mg/dLUniversity [facility] Chloride [Moles/Vol]103 mmol/L97 - 105 mmol/LCleveland ClinicCO2 [Moles/Vol]24 mmol/L22 - 30 mmol/LCleveland ClinicCreatinine [Mass/Vol]0.75 mg/dL0.58 - 0.96 mg/dLUniversity Hospitals Parma Medical CenterGFR/1.73 sq M.predicted among non-blacks MDRD (S/P/Bld) [Vol rate/Area]114 mL/min/{1.73_m2}- PINFCSt. Mary's Medical Center, Ironton CampusComment on above: Estimated Glomerular Filtration Rate (eGFR) is calculated using the 2020 CKD-EPI creatinine equation. This equation utilizes serum creatinine, sex, and age as parameters. The creatinine assay has traceable calibration to isotope dilution- mass spectrometry. Refer to KDIGO guidelines for clinical interpretation. In patients with unstable renal function, e.g. those with acute kidney injury, the eGFRmay not accurately reflect actual GFR.Glucose [Mass/Vol]109 mg/sFEwrg90 - 99 mg/dLUniversity Hospitals Parma Medical CenterComment on above:The [place] Diabetes Association (ADA) provides guidance for cutoff [...] Standards of Medical Care in Diabetes 2016, [place] Diabetes Association. Diabetes Care. 2016.39(Suppl 1). Interpretation and review of laboratory resultsAbnormalCleveland ClinicPotassium [Moles/Vol]4.5 mmol/L3.7 - 5.1 mmol/LCleveland ClinicProtein [Mass/Vol]6.9 g/dL 6.3 - 8.0 g/dLCantril ClinicSodium [Moles/Vol]138 mmol/L136 - 144 mmol/L Cantril ClinicUrea nitrogen [Mass/Vol]16 mg/dL7 - 21 mg/dLSelect Medical Specialty Hospital [facility] ClinicAlbumin [Mass/Vol]4.4 g/dLNormal3.9-4.9Avon HospitalComment on above:Order Comment: Specimen Type: BLOOD SPECIMEN [facility] Address: [address] [place], [place] [address] [id number] By: #### 12316-5 #### [facility] CLIA [id number] [address] [place] [address] [place] AMERICAALP [Catalytic activity/Vol]47 U/LNormal 34-123Avon HospitalComment on above:Order Comment: Specimen Type: BLOOD SPECIMEN [facility] Address: [address] [place], [place] [address]Performed By: #### 04883-0 #### [facility] CLIA [id number] [address] [place] [address] [place] AMERICAALT [Catalytic activity/Vol]8 U/LNormal 7-38Avon HospitalComment on above:Order Comment: Specimen Type: BLOOD SPECIMEN [facility] Address: [address] [place], [place] [address]Performed By: #### 54874-9 #### [facility] IA [id number] [address] [place] [address] [place] AMERICAAnion gap [Moles/Vol]11 mmol/LNormal9-18 [facility] HospitalComment on above:Order Comment: Specimen Type: BLOOD SPECIMEN [facility] Address: [address] [place], [place] [address]Performed By: #### 70654-5 #### [facility] IA [id number] [address] [place] [address] [place] AMERICAAST [Catalytic activity/Vol]18 U/LNormal 13-35Avon HospitalComment on above:Order Comment: Specimen Type: BLOOD SPECIMEN [facility] Address: [address] [place], [place] [address]Performed By: #### 30606-9 #### [facility] IA [id number] [address] [place] [address] [place] AMERICABilirubin [Mass/Vol]0.4 mg/dLNormal 0.2-1.3Avon HospitalComment on above:Order Comment: Specimen Type: BLOOD SPECIMEN [facility] Address: [address] [place], [place] [address]Performed By: #### 12959-1 #### [facility] IA [id number] [address] [place] [address] [place] AMERICACalcium [Mass/Vol]9.6 mg/dLNormal8.5-10.2 [facility] HospitalComment on above:Order Comment: Specimen Type: BLOOD SPECIMEN [facility] Address: [address] [place], [place] [address]Performed By: #### 05998-3 #### [facility] IA [id number] [address] [place] [address] [place] AMERICAChloride [Moles/Vol]103 mmol/LNormal 97-105Av HospitalComment on above:Order Comment: Specimen Type: BLOOD SPECIMEN [facility] Address: [address] [place], [place] [address]Performed By: #### 81002-2 #### [facility] IA [id number] [address] [place] [address] [place] AMERICACO2 [Moles/Vol]24 mmol/IChghxb60-56Wacl HospitalComment on above:Order Comment: Specimen Type: BLOOD SPECIMEN [facility] Address: [address] [place], [place] [address]Performed By: #### 58318-8 #### [facility] IA [id number] [address] [place] [address] [place] AMERICACreatinine [Mass/Vol]0.75 mg/dLNormal 0.58-0.96[facility] HospitalComment on above:Order Comment: Specimen Type: BLOOD SPECIMEN [facility] Address: [address] [place], [place] [address]Performed By: #### 00881-9 #### [facility] IA [id number] [address] [place] [address] [place] AMERICACreatinine and Glomerular filtration rate.predicted panel (S/P/Bld)114 mL/min/1.73m???Normal>=60Av HospitalComment on above:Order Comment: Specimen Type: BLOOD SPECIMEN [facility] Address: [address] [place], [place] [address]Zoreol Comment: Estimated Glomerular Filtration Rate (eGFR) is [...] not accurately reflect actual GFR.Performed By: #### 07068-4 #### [facility] CLIA [id number] [address] [place] [address] [place] AMERICAGlucose [Mass/Vol]109 mg/eCBopl80-06Cvci HospitalComment on above:Order Comment: Specimen Type: BLOOD SPECIMEN [facility] Address: [address] [place], [place] [address]Hgytwk Comment: The [place] Diabetes Association (ADA) provides guidance for cutoff [...] Standards of Medical Care in Diabetes 2016, [place] Diabetes Association. Diabetes Care. 2016.39(Suppl 1).Performed By: #### 16230-6 #### [facility] CLIA [id number] [address] [place] [address] [place] AMERICAPotassium [Moles/Vol]4.5 mmol/LNormal 3.7-5.1Avon HospitalComment on above:Order Comment: Specimen Type: BLOOD SPECIMEN [facility] Address: [address] [place], [place] [address]Cfasitigs By: #### 35408-9 #### [facility] CLIA [id number] [address] [place] [address] [place] AMERICAProtein [Mass/Vol]6.9 g/dLNormal6.3-8.0 [facility] CenterComment on above:Order Comment: Specimen Type: BLOOD SPECIMEN [facility] Address: [address] [place], [place] [address]Performed By: #### 95195-7 #### [facility] CLIA [id number] [address] [place] [address] [place] AMERICASodium [Moles/Vol]138 mmol/WRyolaa885-268 [facility] Medical CenterComment on above:Order Comment: Specimen Type: BLOOD SPECIMEN [facility] Address: [address] [place], [place] [address]Performed By: #### 25840-8 #### [facility] IA [id number] [address] [place] [address] [place] AMERICAUrea nitrogen [Mass/Vol]16 mg/dLNormal 7-21[facility] HospitalComment on above:Order Comment: Specimen Type: BLOOD SPECIMEN [facility] Address: [address] [place], [place] [address]Performed By: #### 51895-8 #### [facility] IA [id number] [address] [place] [address] [place] AMERICAEosinophils/100 WBC Auto (Bld)on 95-49-6831Qpyadtazfgv/100 WBC (Bld)3.4 %[facility] Erythrocyte distribution width Auto (RBC) [Ratio]on 90-98-9932Iaadxhgnugl distribution width (RBC) [Ratio]11.6 %11.5-15.0[facility] HISTORY PHYSICALon 61-75-3423ZIPUPKR PHYSICALHNO ID: [id number] Author: MADHU CAUSEY PA-C Service: ? Author Type: Physician Wood Shingle Roofer Type: H&P Filed: 11/16/2023 07:41 Note Text: [...] SOB. Pulse today 75, regular rhythm today [id number]- 0 Ejection Fraction - Result: 63 % [...] Prior to Admission medications as of 11/15/23 1759 Medication Sig Last Dose Taking dicyclomine (BENTYL) 20 mg tablet Take 1 tablet by mouth q 8 HR. Taking Yes escitalopram oxalate (LEXAPRO) 10 mg tablet Take 5 mg by mouth once daily. Taking Yes ondansetron (ZOFRAN) 4 mg tablet Take 4 mg by mouth as needed. Taking Differently Yes No (more content not included)...NormalAvon HospitalHematocrit Auto (Bld) [Volume fraction]on 85-53-7644Zqxtnbzikg (Bld) [Volume fraction]37.7 %36.0-46.0 [facility] DaytonHemoglobin [Mass/volume] in Bloodon 11-15-2023 Hemoglobin (Bld) [Mass/Vol]12.6 g/dL11.5-15.5FSelect Medical [facility] Clinic Rehabilitation [facility], [facility] Laboratory - Chemistry and Chemistry - challengeon 55-54-6473Xfbyuuh [Mass/Vol] 4.4 g/dL3.9-4.9[facility] DaytonALP [Catalytic activity/Vol]47 U/N32-797OskghjpsfAccess Hospital DaytonALT [Catalytic activity/Vol]8 U/L7-38 [facility] DaytonAST [Catalytic activity/Vol]18 U/L13-35 [facility] DaytonBilirubin [Mass/Vol]0.4 mg/dL0.2-1.3FSelect Medical Cleveland Clinic Rehabilitation Hospital, AvonCalcium [Mass/Vol]9.6 mg/dL8.5-10.2FSelect Medical Cleveland Clinic Rehabilitation Hospital, AvonChloride [Moles/Vol]103 mmol/K70-425CofvewbqgAccess Hospital DaytonCO2 [Moles/Vol]24 mmol/C91-44VxbevfbijAccess Hospital DaytonCreatinine [Mass/Vol]0.75 mg/dL0.58-0.96[facility] DaytonGlucose [Mass/Vol] 109 mg/lB33-91CwfvfzubdAccess Hospital DaytonComment on above:The [place] Diabetes Association (ADA) provides guidance for cutoff [...] diabetes.Reference: Standardsof Medical Care in Diabetes 2016, [place] Diabetes Association. Diabetes Care. 2016.39(Suppl 1). Potassium [Moles/Vol]4.5 mmol/L3.7-5.1FAdena Fayette Medical Centerodium [Moles/Vol]138 mmol/H743-936MtbdhdqlwAccess Hospital DaytonUrea nitrogen [Mass/Vol]16 mg/dL7-21[facility] Hospital DaytonLaboratory - Hematology and Cell countson 75-96-7651Xbdioycgvyh (Bld) [#/Vol]0.19 10*3/uL<0.46[facility] Hospital DaytonImmature granulocytes/100 WBC (Bld)0.2 %[facility] Hospital DaytonLeukocytes [#/volume] corrected for nucleated erythrocytes in Blood by Automated counon 05-90-6468BBQ corrected for nucl RBC Auto (Bld) [#/Vol]5.57 k/uL3.70-11.00[facility] Lymphocytes Auto (Bld) [#/Vol]on 61-54-8770Okirauepzyz (Bld) [#/Vol]2.43 10*3/uL 1.00-4.00[facility] Hospital DaytonLymphocytes/100 WBC Auto (Bld)on 03-54-3376Hciykwrxcgh/100 WBC (Bld)43.6 %CentervilleH Auto (RBC) [Entitic mass]on 43-38-3434KPI (RBC) [Entitic mass]31.9 pg26.0-34.0 [facility] Auto (RBC) [Mass/Vol]on 96-44-2088GXOM (RBC) [Mass/Vol]33.4 g/dL30.5-36.0[facility] Auto (RBC) [Entitic vol]on 02-75-7158CXV (RBC) [Entitic vol]95.4 fL80.0-100.0 [facility] ([facility]ld) [#/Vol]on 11-15-2023 Monocytes (Bld) [#/Vol]0.47 10*3/uL<0.87[facility] Monocytes/100 WBC Auto (Bld)on 46-49-9783Dwfhnfvln/100 WBC (Bld)8.4 %[facility] DaytonNeutrophils Auto (Bld) [#/Vol]on 06-02-8537Nzkqwxtdldv (Bld) [#/Vol]2.43 10*3/uL1.45-7.50[facility] Neutrophils/100 WBC Auto (Bld)on 95-94-9856Hsmnjqkvyjk/100 WBC (Bld)43.7 % [facility] DaytonNo Panel Informationon 39-20-0045Qusxypnwk GFR (CKD-EPI)114 mL/min/1.73m???>=60[facility] DaytonComment on above:Estimated Glomerular Filtration Rate (eGFR) is [...] accurately reflect actual GFR.Immature Granulocyte # (Auto)<0.03 k/uL<0.10[facility] DaytonNucleated RBC Auto (Bld) [#/Vol]on 67-29-8090Fhgxcbdsg RBC (Bld) [#/Vol]10*3/uL<0.01 [facility] DaytonNucleated erythrocytes [Presence] in Blood by Automated counton 95-86-8867Avrlciyfv RBC Auto Ql (Bld)0.0 /100{WBC}[facility] DaytonPlatelet mean volume Auto (Bld) [Entitic vol]on 00-50-9729Zshalwdk mean volume (Bld) [Entitic vol]10.5 fL9.0-12.7FSelect Medical Cleveland Clinic Rehabilitation Hospital, AvonPlatelets Auto (Bld) [#/Vol]on 84-77-4336Hfkxirnyr (Bld) [#/Vol]201 10*3/fR260-504JwlvhwhieAccess Hospital DaytonProtein [Mass/volume] in Serum or Plasmaon 36-13-2206Dpgdxki [Mass/Vol]6.9 g/dL6.3-8.0[facility] DaytonRBC Auto (Bld) [#/Vol]on 79-00-6790EIS (Bld) [#/Vol]3.95 10*6/uL3.90-5.20UC Medical Centererum or plasma anion gap determinationon 85-64-4454Xnwkc gap [Moles/Vol]11 mmol/L9-18FSelect Medical Cleveland Clinic Rehabilitation Hospital, AvonECHOon 61-80-2075YuxagjipgmbeqpdpIyryuiejwlcbagsc Report: Transthoracic Echo [facility] Date of service: 11/07/2023 1:59:20 PM SPOTTER Ordering physician: SEDRICK RUSHING Indication: Abnormal ECG Technologist: Walt Silva [facility] Interpreting physician: Roberto Rodríguez MD PATIENT: [...] * * Final * * * [facility] : [id number] [facility] OhioCNPNon 30-85-4606KNJXKdlgxkwvg (CARDAV) CHIOMA ALONZO Jovana ([id number]) 2000 F Date Time Provider Department 11/05/23 [...] Fully Assessed Reason for Visit: Patient Question [6218] Cmt: PVCs and Frequent ED visits. Prescriptions [...] 12/08/2022 Encounter Status:Closed by SEDRICK RUSHING on 11/05/23[facility] HospitalChristine 75-33-9257GGXHAlvfotzhk (CARDAV) CHIOMA ALONZO ([id number]) 2000 F Date Time Provider Department 10/30/23 SEDRICK RUSHING During your visit today, we recorded the following information about you: Juanis Cabello, RN 10/30/2023 11:14 AM Signed The pt is calling. Please review the my chart message from today for an EKG attachment she sent from her ED visit last night. She went to the [place] ED. Are you able to revue her [...] ongoing symptoms Staying hydrated Concerned Call CELL [phone] Leave Detailed messages Chichi Monroy RN 11/01/2023 [...] 12/08/2022 Encounter Status:Closed by CHICHI MONROY on 11/01/23NoGe[facility] HospitalImtiaz 34-64-6004OUUFSfneoxpmg (FAINA) CHIOMA ALONZO ([id number]) 2000 F Date Time Provider Department 10/23/23 SEDRICK RUSHING During your visit today, we recorded the following information about you: Wilfredo Avila OCCA 10/23/2023 1:53 PM Signed Received form requesting cardiac evaluation for surgical clearance from [facility] General Surgery with Dr. Seema Davis. Surgery Date: 11-21-2023 Fax to [facility] Surgery: [phone] Rushing to review. CHATO Ramirez Cynthia, OCCA 12/07/2023 4:[address] Rushing filled out Cardiac Clearance Form. Faxed to [facility] at [phone]. Scanned into chart. CHATO Ramirez Allergies As [...] 12/08/2022 Encounter Status:Closed by WILFREDO AVILA on 10/23/23[facility] HospitalCNMERRYTelephone ([facility]) CINDYCHIOMA Newberry Jovana ([id number]) 2000 F Date Time Provider Department 10/23/23 SEEMA DAVIS [facility] During your visit today, we recorded the following information about you: Kym Gray RN 10/23/2023 1:[address] Sedrick Rushing's office for cardiac clearance at [phone]. Abnormal heart sounds with gallbladder consult on [...] Fully Assessed Reason for Visit: Cardiac Clearance [7708] Prescriptions as of 10/23/2023 - dicyclomine (BENTYL) [...] 12/08/2022 Encounter Status:Closed by KYM GRAY on 10/23/23[facility] 48-49-0039MUMJDgmctu Visit (CARINF) CHIOMA ALONZO Jovana ([id number]) 2000 F Date Time Provider Department 10/22/23 3:00 PM SEDRICK RUSHING CARINF During your visit today, we recorded the following information about you: Pulse Blood pressure Weight Height 40/minute 102/62 52.6 kg 1.626 m Sedrick Rushing MD 10/22/2023 3:17 PM [facility] Iram Pathak Department of Cardiovascular Medicine SECTION OF REGIONAL CARDIOLOGY OUTPATIENT VISIT DATE October 21, 2023 OUTPATIENT VISIT TYPE NEW CONSULTATION PRIMARY CARE PHYSICIAN: Analia Holliday [address] [facility] [place] [address] CHIEF COMPLAINT: Palpitations HISTORY OF PRESENT ILLNESS: [...] Shortness of Breath, Unknown, Vomiting CURRENT MEDICATIONS: spgrqi-lgnwftdv-rydjrfq (CREON) 24,000-76,000 -120,000 unit delayed release capsule [...] on File Prior to Visit Medication Sig lfzkmo-zqpokxay-zhizale (CREON) 24,000-76,000 -120,000 unit delayed release capsule [...] Sedrick Rushing MD Cardiovascular Medicine Staff [facility] [address] [facility] [address] Azael Larson LPN 10/22/2023 3:33 PM Signed EVENT MONITOR DISPOSABLE PATCH INSTRUCTIONS Patient Name: Chioma Alonzo Clinic Number: [id number] Skin prepped and cleansed with alcohol Patch secured to prepped area Monitor Activated Serial #: [id number] Patient Instructed: Prescribed order timeframe Bathing guidelines Usage of event button and diary documentation Return of monitor at the end of prescribed order Call with problems [phone] or [phone]. [phone] (more content not included)...NormalSelect Medical Specialty Hospital - Southeast OhioCNOVon 10-19-2023 CNOVOffice Visit (GEMT) CINDYCHIOMA Newberry Jovana ([id number]) 2000 F Date Time Provider Department 10/19/23 [...] Take 4 mg by mouth as needed. 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 Lives with her . [...] the date of the service which included euig-ky-zdon patient care, completing clinical documentation, obtaining and/or [...] within normal limits Referring Provider: SEEMA DAVIS [[id number]] Allergies As of Date: 10/19/2023 Noted Allergy Reaction METRONIDAZOLE 09/07/2020 1 - Mental Status Change 6 - Diarrhea 8 - GI Upset 4 - Hives 14 - Other: See Comments 2 - Rash 12 - Shortness of Breath 16 - Unknown 11 - Vomiting Date Reviewed: 10/19/2023 (more content not included)...NormalUniversity Hospitals [facility] COMPLETEon 43-22-4774SBV COMPLETEVentricular Rate : 67 BPM Atrial Rate : 67 BPM P-R Interval : 160 ms QRS Duration : 94 ms Q-T Interval : 402 ms QTC Calculation(Bazett) : 424 ms Calculated P Macon : 76 degrees Calculated R Macon : 37 degrees Calculated T Macon : 57 degrees NORMAL SINUS RHYTHM WITH SINUS ARRHYTHMIA POSSIBLE LEFT ATRIAL ENLARGEMENT RSR' PATTERN IN V1 SUGGESTS INCOMPLETE RIGHT BUNDLE BRANCH BLOCK BORDERLINE ECG NO PREVIOUS ECGS AVAILABLE Confirmed by JENNIFER SURESH MD ([id number]) on 10/22/2023 1:00:28 PM NAME : CHIOMA ALONZO PID : [id number] : 2000 Gender : Female Race : ORD : [id number] Procedure Date : Oct 19 2023 14:37:15 Edit Date : Oct 22 2023 13:00:33 Diagnosis: NORMAL SINUS RHYTHM WITH SINUS ARRHYTHMIA POSSIBLE LEFT ATRIAL ENLARGEMENT RSR' PATTERN IN V1 SUGGESTS INCOMPLETE RIGHT BUNDLE BRANCH BLOCK BORDERLINE ECG NO PREVIOUS ECGS AVAILABLE Confirmed by JENNIFER SURESH MD ([id number]) on 10/22/2023 1:00:28 PM Test Reason : SVT Location : [facility] Overread By : JENNIFER SURESH MD Edited By : JENNIFER SURESH MD Referred By : SEEMA DAVIS Acquired by : [id number],[facility] [id number] Telephone (LENA) CHIOMA ALONZO N ([id number]) 2000 F Date Time Provider Department 09/11/23 [...] 09/11/2023 4:25 PM Signed Please refer to [facility] dated 09/11/2023. Gisela Ponce RN Allergies [...] Update [1234] Prescriptions as of 09/11/2023 - euqbfz-idhhewxe-wassvpc (CREON) 24,000-76,000 -120,000 unit delayed release capsule [...] 12/08/2022 Encounter Status:Closed by GISELA PONCE on 09/11/23[facility] POSTPROC EVALon 32-56-3783ZTFV POSTPROC EVALHNO ID: [id number] Author: TERRY PIMENTEL MD Service: Anesthesiology Author Type: Anesthesiologist Type: Anesthesia Postprocedure Evaluation Filed: 09/06/2023 13:55 Note Text: POST ANESTHESIA EVALUATION NOTE : 2000 Procedure Summary Date: 09/06/23 Room / Location: [facility] Endoscopy - ENDO Anesthesia Start: 1244 Anesthesia Stop: 1327 Procedure: EGD - THERAPEUTIC, EUS, OR TUBE INTERVENTIONS Diagnosis: Chronic recurrent pancreatitis (HCC) Scheduled Providers: Isabelle Menon MD; Terry Pimentel MD; Elif Hess APRN.PRESSURE VESSEL INSPECTOR Responsible Provider: Terry Pimentel MD Anesthesia Type: [...] September 06, 2023 TIME: 1:55 PM CSN: [id number] HospitalANES PRE-OPon 76-69-3939NUWV PRE-OPHNO ID: [id number] Author: TERRY PIMENTEL MD Service: Anesthesiology Author Type: Anesthesiologist Type: Anesthesia Preprocedure Evaluation Filed: 09/06/2023 10:56 Note Text: ANESTHESIOLOGY DAY OF SURGERY NOTE : 2000 Procedure Information Date/Time: 09/06/23 1130 Scheduled providers: Isabelle Menon MD; Terry Pimentel MD; Elif Hess APRN.PRESSURE VESSEL INSPECTOR Procedure: EGD - THERAPEUTIC, EUS, OR TUBE INTERVENTIONS Location: [facility] Endoscopy - ENDO Estimated body mass [...] 10 mg by mouth once daily. - uysncl-sisaglzj-lvzdnkt (CREON) 24,000-76,000 -120,000 unit delayed release capsule [...] September 06, 2023 TIME: 10:54 AM CSN: [id number] County Hospital 69-56-2675HCWE Telephone (FVPRAD) CHIOMA ALONZO ([id number]) 2000 F Date Time Provider Department 09/06/23 [...] Fully Assessed Prescriptions as of 09/06/2023 - ventgw-vhumzxhh-htpfxwg (CREON) 24,000-76,000 -120,000 unit delayed release capsule [...] 12/08/2022 Encounter Status:Closed by ISABELLE MENON on [facility]/06/23[facility] Study observation Narrativeon 91-64-4845Yrcqfiyol ClinicHISTORY PHYSICALon 23-15-8812ENLKVCV PHYSICALHNO ID: [id number] Author: ISABELLE MENON MD Service: Gastroenterology Author [...] mouth once daily. 09/05/2023 at 1000 Yes rkqsyg-acohjuqj-ykasnix (CREON) 24,000-76,000 -120,000 unit delayed release capsule [...] Alonzo DATE: September 06, 2023 TIME: 12:20 [facility] 18-94-7587SVIOSVK PROGHNO ID: [id number] Author: RICKIE GU RN Service: Nursing Author [...] Left Endo in satisfactory condition Rickie Gu RNWorcester State Hospital ID: [id number] Author: RICKIE GU RN Service: Nursing Author [...] REFERRAL (RECOMMENDATION): None Electronically Signed By: Rickie GuWhitinsville Hospital EUSon 67-73-4279QokddBoston Hospital for Women Gastrointestinal Endoscopy Patient Name: Chioma Alonzo Procedure Date: 09/06/2023 12:16 PM Date of : 2000 Admit Type: Outpatient Age: 22 Room: [place] [address] Gender: Female Note Status: Finalized Attending MD: Isabelle Menon MD, [id number] Procedure: Upper EUS Indications: Abnormal abdominal/pelvic CT [...] for cholecystectomy. 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 All rights reserved. The codes documented in this report are preliminary and upon assistant infant teacher review may be revised to meet current compliance requirements. Attending Participation: I personally performed the entire procedure. Scope In: 12:53:03 PM Scope Out: 1:22:36 PM MD Isabelle Cedeno MD 09/06/2023 3:29:47 PM This report has been signed electronically by Isabelle Menon MD Number of Addenda: 0 Note Initiated On: 09/06/2023 12:16 PM Estimated Blood Loss: Estimated blood loss: none.NormalGoddard Memorial HospitalAlanine aminotransferase [Enzymatic activity/volume] in Serum or PlasmaOrdered By: Analia Holliday on 24-37-7912WWP [Catalytic activity/Vol]10 U/L7-52[facility] DaytonAlbumin [Mass/volume] in Serum or Plasma by Bromocresol green (BCG) dye binding methoOrdered By: Analia Holliday on 57-17-0719Nqkmblc BCG dye [Mass/Vol]4.6 g/dL3.5-5.7FSelect Medical Cleveland Clinic Rehabilitation Hospital, AvonAlkaline phosphatase [Enzymatic activity/volume] in Serum or PlasmaOrdered By: Analia Holliday on 78-85-5826AAF [Catalytic activity/Vol]44 U/T78-709EwvqvqarfAccess Hospital DaytonAspartate aminotransferase [Enzymatic activity/volume] in Serum or PlasmaOrdered By: Analia Holliday on 36-40-7467BAG [Catalytic activity/Vol]16 U/L 13-39[facility] DaytonBasophils Auto (Bld) [#/Vol]Ordered By: Analia Holliday on 02-93-6947Dfjsbldoj (Bld) [#/Vol]0.0 10*3/uL0.0-0.2FSelect Medical Cleveland Clinic Rehabilitation Hospital, AvonBasophils/100 WBC Auto (Bld)Ordered By: Analia Holliday on 29-68-3238Qaiklfrap/100 WBC (Bld)0.8 %.[facility] Bilirubin.total [Mass/volume] in Serum or PlasmaOrdered By: Analia Holliday on 75-48-7744Jxuxbydzx [Mass/Vol]0.6 mg/dL0.3-1.0[facility] Calcium [Mass/volume] in Serum or PlasmaOrdered By: Analia Holliday on 05-30-2023 Calcium [Mass/Vol]9.5 mg/dL8.6-10.3FSelect Medical Cleveland Clinic Rehabilitation Hospital, AvonCarbon dioxide, total [Moles/volume] in Serum or PlasmaOrdered By: Analia Holliday on 32-52-0674OC6 [Moles/Vol]27.5 mmol/L21.0-31.0[facility] Chloride [Moles/volume] in Serum or PlasmaOrdered By: Analia Holliday on 54-11-7896Tphpndog [Moles/Vol]106 mmol/U69-310DefznwgfqAccess Hospital [facility] Cholesterol [Mass/volume] in Serum or PlasmaOrdered By: Analia Holliday on 99-42-5137Pdhxewrhvtv [Mass/Vol]169 mg/mI406-954CujlxzsvgAccess Hospital DaytonComment on above:Chol less than 200 mg/dl low riskChol 201-239 mg/dl borderline riskChol 240 mg/dl and greater high riskCholesterol in LDL Calc [Mass/Vol]Ordered By: Analia Holliday on 29-73-4024Ulbimrncvtv in LDL [Mass/Vol] 100 mg/dL0-100[facility] Hospital DaytonComment on above:LDL ATP III CLASSIFICATIONLDL less than 100 mg/dL OptimalLDL 100-129 mg/dL Near or above tqbsxkaVLH290-592 mg/dL Borderline highLDL 160-189 mg/dL HighLDL greater than 189 mg/dL Very highCholesterol in VLDL Calc [Mass/Vol]Ordered By: Analia Holliday on 42-17-6531Kqiswocontz in VLDL [Mass/Vol]8 mg/dLAccess Hospital DaytonCreatinine [Mass/volume] in Serum or PlasmaOrdered By: Analia Holliday on 43-11-7461Idniyfpgiz [Mass/Vol]0.66 mg/dL0.60-1.20[facility] DaytonEosinophils Auto (Bld) [#/Vol]Ordered By: Analia Holliday on 05-30-2023 Eosinophils (Bld) [#/Vol]0.2 10*3/uL0.0-0.45[facility] Eosinophils/100 WBC Auto (Bld)Ordered By: Analia Holliday on 05-30-2023 Eosinophils/100 WBC (Bld)3.8 %.[facility] DaytonErythrocyte distribution width Auto (RBC) [Ratio]Ordered By: Analia Holliday on 05-30-2023 Erythrocyte distribution width (RBC) [Ratio]12.3 %11.9-15.3FSelect Medical Cleveland Clinic Rehabilitation Hospital, AvonFerritin [Mass/volume] in Serum or PlasmaOrdered By: Analia Holliday on 31-51-8794Mtramzwz [Mass/Vol]38.7 ng/mL11.0-306.8[facility] Hospital DaytonFolate [Mass/volume] in Serum or PlasmaOrdered By: Analia Holliday on 50-82-9004Kdlkqq [Mass/Vol]23.0 ng/mL>5.9[facility] Comment on above:Folate reference range: >5.9 ng/mlThe WHO technical consultation on folate and vitamin o49vxnnylgpesal has determined that folate concentrations lessthan 4 ng/ml are considered deficient.Globulin Calc (S) [Mass/Vol]Ordered By: Analia Holliday on 40-36-0844Ljkogipz (S) [Mass/Vol]2.5 g/dLAccess Hospital DaytonGlucose [Mass/volume] in Serum or Plasma Ordered By: Analia Holliday on 39-15-5460Hrbnyxo [Mass/Vol]89 mg/lK29-664 [facility] DaytonHematocrit Auto (Bld) [Volume fraction]Ordered By: Analia Holliday on 45-80-5590Zjigpdstne (Bld) [Volume fraction]39.8 % 34.0-46.4FSelect Medical Cleveland Clinic Rehabilitation Hospital, AvonHemoglobin [Mass/volume] in Blood Ordered By: Analia Holliday on 19-59-5677Xosjusiesm (Bld) [Mass/Vol]13.6 g/dL 11.8-15.4FSelect Medical Cleveland Clinic Rehabilitation Hospital, AvonIron [Mass/volume] in Serum or Plasma Ordered By: Analia Holliday on 90-51-7462Qtsc [Mass/Vol]116 ug/nB93-986UizifnpgsAccess Hospital DaytonIron binding capacity [Mass/volume] in Serum or Plasma Ordered By: Analia Holliday on 25-16-6462Agyw binding capacity [Mass/Vol]349 ug/aT709-920CddrwvuvkAccess Hospital DaytonIron saturation [Mass Fraction] in Serum or PlasmaOrdered By: Analia Holliday on 34-41-6926Egue saturation [Mass fraction]33.2 %20-50[facility] Hospital DaytonLeukocytes [#/volume] corrected for nucleated erythrocytes in Blood by Automated counOrdered By: Analia Holliday on 82-44-2173DIB corrected for nucl RBC Auto (Bld) [#/Vol]5.0 10*3/uL3.8-11.6FSelect Medical Cleveland Clinic Rehabilitation Hospital, AvonLymphocytes Auto (Bld) [#/Vol] Ordered By: Analia Holliday on 61-29-7064Nkfeqmmqfcf (Bld) [#/Vol]2.0 10*3/uL 1.00-4.8Firelands Regional Medical CenterLymphocytes/100 WBC Auto (Bld)Ordered By: Analia Holliday on 56-20-8833Dkzqjugrjup/100 WBC (Bld)39.3 %.CentervilleH Auto (RBC) [Entitic mass]Ordered By: Analia Holliday on 80-13-2019ZYL (RBC) [Entitic mass]31.6 pg24.7-34.3FSelect Medical Cleveland Clinic Rehabilitation Hospital, AvonMCHC Auto (RBC) [Mass/Vol]Ordered By: Analia Holliday on 23-18-6396DEXI (RBC) [Mass/Vol]34.1 g/dL32.0-35.0[facility] Hospital DaytonMCV Auto (RBC) [Entitic vol]Ordered By: Analia Holliday on 54-93-3346GYY (RBC) [Entitic vol]92.6 lU00-023DnpaqkrmcAccess Hospital DaytonMonocytes Auto (Bld) [#/Vol] Ordered By: Analia Holliday on 31-61-7460Xsbcdwnfx (Bld) [#/Vol]0.5 10*3/uL 0.0-0.8[facility] DaytonMonocytes/100 WBC Auto (Bld)Ordered By: Analia Holliday on 32-75-8938Tmfaikqgk/100 WBC (Bld)9.5 %.[facility] Hospital DaytonNeutrophils Auto (Bld) [#/Vol]Ordered By: Analia Holliday on 84-10-6915Hzsuovfifzi (Bld) [#/Vol]2.3 10*3/uL1.8-7.7FSelect Medical Cleveland Clinic Rehabilitation Hospital, AvonNeutrophils/100 WBC Auto (Bld)Ordered By: Analia Holliday on 05-30-2023 Neutrophils/100 WBC (Bld)46.6 %.[facility] Hospital DaytonNo Panel InformationOrdered By: Analia Holliday on 13-37-6526Zicsvqfzi GFR (CKD-EPI)> 60.0 mL/MinAccess Hospital DaytonPharmacy Creatinine Clearance (ChemN/A Access Hospital DaytonNucleated erythrocytes [Presence] in Blood by Automated countOrdered By: Analia Holliday on 66-81-8146Lkkedsnrb RBC Auto Ql (Bld)0.1 /100{WBC}0-0.5FSelect Medical Cleveland Clinic Rehabilitation Hospital, AvonPlatelet mean volume Auto (Bld) [Entitic vol]Ordered By: Analia Holliday on 20-61-7639Xorzsmml mean volume (Bld) [Entitic vol]9.7 fL6.3-10.7FSelect Medical Cleveland Clinic Rehabilitation Hospital, Avon Platelets Auto (Bld) [#/Vol]Ordered By: Analia Holliday on 80-17-1828Snzzjhmme (Bld) [#/Vol]198 10*3/qY344-399IskhifdrkAccess Hospital DaytonPotassium [Moles/volume] in Serum or PlasmaOrdered By: Analia Holliday on 05-30-2023 Potassium [Moles/Vol]4.2 mmol/L3.5-5.1FSelect Medical Cleveland Clinic Rehabilitation Hospital, AvonProtein [Mass/volume] in Serum or PlasmaOrdered By: Analia Holliday on 68-65-3190Pfwlvgu [Mass/Vol]7.1 g/dL6.4-8.9[facility] Hospital DaytonRBC Auto (Bld) [#/Vol] Ordered By: Analia Holliday on 15-26-6597WPA (Bld) [#/Vol]4.30 10*6/uL3.60-5.00 [facility] Medical Centererum or plasma albumin/globulin mass ratio Ordered By: Analia Holliday on 22-86-6634Vpabyeu/Globulin [Mass ratio]1.8 {ratio} [facility] Centererum or plasma anion gap determinationOrdered By: Analia Holliday on 41-54-1093Xmvkd gap [Moles/Vol]8.7 mmol/L6.0-15.0[facility] Medical Centererum or plasma high density lipoprotein (HDL) cholesterol measurementOrdered By: Analia Holliday on 62-92-5382Ahhamqsuaxc in HDL [Mass/Vol]61 mg/hU47-86EacirduzhAccess Hospital DaytonComment on above:HDL CHOL ATP-III CLASSIFICATION Cardiovascular RiskHDL > or equal to 60 mg/dL LOWHDL < 40 mg/dL HIGHSerum or plasma total cholesterol/high density lipoprotein (HDL) cholesterol mass ratOrdered By: Analia Holliday on 05-30-2023 Cholesterol.total/Cholesterol in HDL [Mass ratio]2.8 {ratio}<5.0UC Medical Centerodium [Moles/volume] in Serum or PlasmaOrdered By: Analia Holliday on 97-24-7133Gnnlhw [Moles/Vol]138 mmol/Z713-104KerqfnafgAccess Hospital DaytonThyrotropin [Units/volume] in Serum or PlasmaOrdered By: Analia Holliday on 28-91-4962DXJ Qn0.95 m[IU]/L0.45-5.33Access Hospital DaytonTransferrin [Mass/volume] in Serum or PlasmaOrdered By: Analia Holliday on 22-68-6000Elvyqzfzkzk [Mass/Vol]249 mg/cI262-240OpnpdfpflAccess Hospital DaytonTriglyceride [Mass/volume] in Serum or PlasmaOrdered By: Analia Holliday on 46-91-9751Tgasrnkaezme [Mass/Vol]42 mg/dL0-149Access Hospital DaytonComment on above:TRIG ATP III CLASSIFICATIONTRIG less than 150 mg/dL NormalTRIG 150-199 mg/dL Borderline highTRIG 200-500 mg/dL High TRIG greater than 500 mg/dL Very highStandard traceable to the Center for Disease Co nrtrol and Prevention (CDC) test method.Urea nitrogen [Mass/volume] in Serum or PlasmaOrdered By: Analia Holliday on 06-61-9896Cxnc nitrogen [Mass/Vol]12 mg/dL 7-25Access Hospital DaytonVitamin B12 ser/plasOrdered By: Analia Holliday on 21-83-7254Pamchdxli (Vitamin B12) [Mass/Vol]630 pg/cQ140-659TedtpkbvbAccess Hospital DaytonVitamin D+Metabolites [Mass/volume] in Serum or Plasma Ordered By: Analia Holliday on 68-67-9415Xvbqeca D+Metabolites [Mass/Vol]27.7 ng/jC08-476JxplwkvqwAccess Hospital DaytonComment on above:VITAMIN D STATUS 25(OH)VITAMIN D RANGE (ng/mL) Deficient <20 Insufficient 20 to <69Epiwyuokqi89 to 100Reference: Chichi MF,Manpreet NC, Doe MIKE, et al. Evaluation,treatment, and prevention of vitamin D deficiency; an Endocrine Society clinical practice guideline. JCEM. 2010; 96(7):1911-30.WBC Auto (Bld) [#/Vol]Ordered By: Analia Holliday on 87-86-4315ZNP (Bld) [#/Vol]5.0 10*3/uL3.8-11.6FGlenbeigh Hospital HEALTHon 58-64-2401GUVYPT HEALTHHNO ID: [id number] Author: Yessi Adkins MRI Tech Service: Radiology Author Type: Logistics Service Representative Type: Allied Health Filed: 04/13/2023 3:14 PM [...] Alonzo DATE: April 13, 2023 TIME: 3:13 PMNMedfield State HospitalMR Abdomen WO and W contrast Eddie 04-13-2023 IMPRESSION: No MR findings of acute or chronic pancreatitis. No pancreatic divisum. Fire Extinguisher Installer: PSCB Transcribe Date/Time: Apr 13 2023 3:30P Dictated by : ERIC VILLAR MD This examination was interpreted and the report reviewed and electronically signed by: ERIC VILLAR MD on Apr 13 2023 3:50PM [facility] RADIOLOGY* * *Final Report* * * DATE OF EXAM: Apr 13 2023 3:23PM [facility] 0689 - MRI ABDOMEN WO/W IVCON [...] ascites. Osseous structures: No aggressive osseous lesions. [facility] RADIOLOGYProvider, [facility] Imaging Coin - 04/13/2023 * * *Final Report* * * DATE OF EXAM: Apr 13 2023 3:23PM [facility] 0689 - MRI ABDOMEN WO/W IVCON [...] acute or chronic pancreatitis. No pancreatic divisum. Fire Extinguisher Installer: PSCB Transcribe Date/Time: Apr 13 2023 3:30P Dictated by : ERIC VILLAR MD This examination was interpreted and the report reviewed and electronically signed by: ERIC VILLAR MD on Apr 13 2023 3:50PM EST [facility] Medical CenterRadiology Study observation (narrative)[facility] Abdomen WO and W contrast IVOrdered By: Ccf Provider on 10-24-3360Hazuuyoxn ClinicMRI ABDOMEN WO/W IVCONon [id number] ABDOMEN WO/W IVCON* * *Final Report* * * DATE OF EXAM: Apr 13 2023 3:23PM [facility] 0689 - MRI ABDOMEN WO/W IVCON [...] acute or chronic pancreatitis. No pancreatic divisum. Fire Extinguisher Installer: [employer] Transcribe Date/Time: Apr 13 2023 3:30P Dictated by : ERIC VILLAR MD This examination was interpreted and the report reviewed and electronically signed by: ERIC VILLAR MD on Apr 13 2023 3:50PM EST [id number] State School for the F[facility]-Mind[facility] [id number] (RGFV) CHIOMA ALONZO ([id number]) 2000 F Date Time Provider Department 04/12/23 [...] mouth three times daily with meals. - szmzfa-ywibdmxj-cojjwjh (ZENPEP) 40,000-126,000- 168,000 unit delayed release capsule [...] 12/08/2022 Encounter Status:Closed by MARIE SIMPSON on 04/12/23[facility] HEPATOBILIARY SCAN W EFon [id number] HEPATOBILIARY SCAN W EF HEPATOBILIARY SCAN WITH [...] DARA CEDILLO Date: 2022-12-01 13:53Normal [facility] AND PARASITE EXAMINATIONon [id number] + Parasite ExamFinal reportNoWhite HospitalComment on above:Result Comment: These results were obtained using wet preparation(s) and trichrome stained smear. This test does not include testing for Cryptosporidium parvum, Cyclospora, or Microsporidia.Performed By: #### OVAPE #### [facility] [address] [place] [address] Dr. Timi Velasquez 1CommentNoWhite HospitalComment on above:Result Comment: No ova, cysts, or parasites seen. . One negative specimen does not rule out the possibility of a parasitic infection.Performed By: #### OVAPE #### [facility] [address] [place] [address] Dr. Timi PraterAMYLASEon [id number] [Catalytic activity/Vol]39 U/LNormal 25-115[facility] Memorial HospitalComment on above:Performed By: #### OVAPE #### [facility] [address] [place] [address] Dr. Timi Willett AUTO DIFFon [id number] #0.1 103/ulNormal0.0-0.1[facility] Memorial HospitalComment on above:Performed By: #### CALPOO #### [facility] [address] [place] [address] Dr. Timi PraterBasophils/100 WBC (Bld)1.1 %Normal0.2-2.0[facility] Comment on above:Performed By: #### CALPOO #### [facility] [address] [place] [address] Dr. Timi Mejia #0.2 103/ulNormal0.0-0.7The Doctors HospitalComment on above: Performed By: #### CALPOO #### [facility] [address] [place] [address] Dr. Timi Romeroosinophils/100 WBC (Bld)3.5 %Normal0.9-7.0[facility] Comment on above:Performed By: #### CALPOO #### [facility] [address] [place], [place] [id number] Dr. Timi Romerorythrocyte distribution width (RBC) [Ratio]11.5 %Thgijw75.0-15.0 The Doctors HospitalComment on above:Performed By: #### CALPOO #### [facility] [address] [place] [address] Dr. Timi PraterHematocrit (Bld) [Volume fraction]39.8 %Guicmk83.0-48.0The Doctors HospitalComment on above:Performed By: #### CALPOO #### [facility] [address] [place] [address] Dr. Timi PraterHemoglobin (Bld) [Mass/Vol]13.7 g/nTGonmht80.0-16.0The Doctors HospitalComment on above:Performed By: #### CALPOO #### [facility] [address] [place] [address] Dr. Timi Delong #0.01 10e3/ulNormal0.00-0.03The Doctors HospitalComment on above:Performed By: #### CALPOO #### [facility] [address] [place] [address] Dr. Timi Delong %0.2 %Normal0.0-0.5The Doctors HospitalComment on above: Performed By: #### CALPOO #### [facility] [address] [place] [address] Dr. Timi MalcolmH #2.4 103/ulNormal1.2-3.8The Doctors HospitalComment on above:Performed By: #### CALPOO #### [facility] [address] [place] [address] Dr. Timi Obrienmphocytes/100 WBC (Bld)53.1 %Zadxsb01.5-60.0The Doctors HospitalComment on above:Performed By: #### CALPOO #### [facility] [address] [place] [address] Dr. Timi PraterMANUAL DIFF REQNONormalThe Doctors HospitalComment on above: Performed By: #### CALPOO #### [facility] [address] [address] [address] Timi Escamilla (RBC) [Entitic mass]31.6 qpSzterf76.7-34.0The Doctors HospitalComment on above:Performed By: #### CALPOO #### [facility] [address] [place] [address] Dr. Timi Escamilla (RBC) [Mass/Vol]34.4 g/nEOhxzfe89.9-35.2The Standard HospitalComment on above:Performed By: #### CALPOO #### [facility] [address] [place] [address] Dr. Timi Escamilla (RBC) [Entitic vol]91.7 cCNyockv17.0-99.0The Doctors HospitalComment on above:Performed By: #### CALPOO #### [facility] [address] [place] [address] Dr. Timi Ortiz #0.4 103/ulNormal0.3-0.8The Doctors HospitalComment on above:Performed By: #### CALPOO #### [facility] [address] [place] [address] Dr. Timi Turciosocytes/100 WBC (Bld)8.1 %Normal1.7-12.0[facility] Comment on above:Performed By: #### CALPOO #### [facility] [address] [place] [address] Dr. Timi Mott #1.6 103/ulNormal1.4-6.5The Doctors HospitalComment on above:Performed By: #### CALPOO #### [facility] [address] [place] [address] Dr. Timi Guzmanutrophils/100 WBC (Bld)34.0 %Critically low43.0-75.0The Doctors HospitalComment on above:Performed By: #### CALPOO #### [facility] [address] [place] [address] Dr. Timi Zamanlet mean volume (Bld) [Entitic vol]10.7 fLNormal9.5-13.5The Doctors HospitalComment on above:Performed By: #### CALPOO #### [facility] [address] [place] [address] Dr. Timi PraterPLT192 103/vxGukhmc099-058Crx Doctors HospitalComment on above: Performed By: #### CALPOO #### [facility] [address] [place] [address] Dr. Timi PraterRBC4.34 106/ulNormal4.20-5.40The Doctors HospitalComment on above:Performed By: #### CALPOO #### [facility] [address] [place] [address] Dr. Timi PraterWBC4.6 103/ulNormal4.0-11.0The Doctors HospitalComment on above: Performed By: #### CALPOO #### [facility] [address] [place] [address] Dr. Timi Blanchard PANEL (PCR)on [id number] F 40/41Not detectedNormal NOT DETECTEDThe Doctors HospitalComment on above:Performed By: #### CDIFPOC #### [facility] [address] [place] [address] Dr. Timi PraterAstrovirusNot detectedNormalNOT DETECTEDThe [facility] Comment on above:Performed By: #### CDIFPOC #### [facility] [address] [place] [address] Dr. Timi Gupta. Diff toxin A/BNot detectedNormalNOT DETECTEDThe Doctors HospitalComment on above:Performed By: #### CDIFPOC #### [facility] [address] [place] [address] Dr. Timi ChupylobacterNot detectedNormalNOT DETECTEDThe [facility] Comment on above:Performed By: #### CDIFPOC #### [facility] [address] [place] [address] Dr. Timi PraterCryptosporidiumNot detectedNormalNOT DETECTEDThe Doctors HospitalComment on above:Performed By: #### CDIFPOC #### [facility] [address] [address] [address] Timi Christensen. CayetanensisNot detectedNormalNOT DETECTEDThe Doctors HospitalComment on above:Performed By: #### CDIFPOC #### [facility] [address] [address] [address] Timi Romero. Coli G528Dew ApplicableNormalNot ApplicableThe Doctors HospitalComment on above:Performed By: #### CDIFPOC #### [facility] [address] [address] [address] Timi Romero[address] histolyticaNot detectedNormalNOT DETECTEDThe [facility] Comment on above:Performed By: #### CDIFPOC #### [facility] [address] [address] [address] Timi RomeroAECNot detectedNormalNOT DETECTEDThe Doctors HospitalComment on above:Performed By: #### CDIFPOC #### [facility] [address] [address] [address] Timi RomeroIECNot detectedNormalNOT DETECTEDThe [facility] HospitalCombeaumont hospital on above:Performed By: #### CDIFPOC #### [facility] [address] [address] [address] Timi RomeroPECNot detectedNormalNOT DETECTEDThe Doctors HospitalComment on above:Performed By: #### CDIFPOC #### [facility] [address] [address] [address] Timi RomeroTECNot detectedNormalNOT DETECTEDThe Doctors HospitalComment on above:Performed By: #### CDIFPOC #### [facility] [address] [address] [address] Timi Perez. LambliaNot detectedNormalNOT DETECTEDThe [facility] Comment on above:Performed By: #### CDIFPOC #### [facility] [address] [address] [address] Timi Burroughs CONTROLSPASSEDNormalThe Doctors HospitalComment on above:Performed By: #### CDIFPOC #### [facility] [address] [address] [address] Timi Jay ANITA HEADERGI [facility] Comment on above:Performed By: #### CDIFPOC #### [facility] [address] [address] [address] Timi Moon ECOLIGI PANEL DIARRHEAGENIC E.COLI / SHIGELLAAshtabula County Medical CenterComment on above:Performed By: #### CDIFPOC #### [facility] [address] [place] [address] Dr. Timi Moon INFOSEE [facility] HospitalComment on above: Result Comment: EAEC- Enteroaggregative E. Coli EPEC- Enteropathogenic E. Coli ETEC- Enterotoxigenic E. Coli lt/st STEC- Shigella-like toxin-producing E. Coli stx1/stx2 EIEC- Shigella/Enteroinvasive E. ColiPerformed By: #### CDIFPOC #### [facility] [address] [place] [address] Dr. Timi Moon PARASITESGI PANEL PARASITESAshtabula County Medical Center Comment on above:Performed By: #### CDIFPOC #### [facility] [address] [place] [address] Dr. Timi Moon VIRUSGI PANEL VIRUSESAshtabula County Medical CenterComment on above:Performed By: #### CDIFPOC #### [facility] [address] [place] [address] Dr. Timi Heartrovirus GI/GIINot detectedNormalNOT DETECTEDThe Doctors HospitalComment on above:Performed By: #### CDIFPOC #### [facility] [address] [address] [address] Timi Dorsey. ShigelloidesNot detectedNormalNOT DETECTEDThe Doctors HospitalComment on above:Performed By: #### CDIFPOC #### [facility] [address] [address] [address] Timi PraterRotavirus ANot detectedNormalNOT DETECTEDTri[facility] Comment on above:Performed By: #### CDIFPOC #### [facility] [address] [place] [address] Dr. Timi PraterSalmonellaNot detectedNormalNOT DETECTEDTri[facility] Comment on above:Performed By: #### CDIFPOC #### [facility] [address] [place] [address] Dr. Timi PraterSapovirusNot detectedNormalNOT DETECTEDThe [facility] Comment on above:Performed By: #### CDIFPOC #### [facility] [address] [place] [address] Dr. Timi PraterSTECNot detectedNormalNOT DETECTEDThe Doctors HospitalComment on above:Performed By: #### CDIFPOC #### [facility] [address] [place] [address] Dr. Timi PraterVibrioNot detectedNormalNOT DETECTEDThe Doctors HospitalComment on above:Performed By: #### CDIFPOC #### [facility] [address] [place] [address] Dr. Timi Lopezio CholeraNot detectedNormalNOT DETECTEDTri[facility] Comment on above:Performed By: #### CDIFPOC #### [facility] [address] [place] [address] Dr. Timi Wallis. EnterocoliticaNot detectedNormalNOT DETECTEDThe Doctors HospitalComment on above:Performed By: #### CDIFPOC #### [facility] [address] [place] [address] Dr. Timi PraterLIPASEon [id number] [Catalytic activity/Vol]88.0 U/LNormal 73.0-393.0The Doctors HospitalComment on above:Performed By: #### OVAPE #### [facility] [address] [place] [address] Dr. Timi PraterOCC BLD IMMUNO SCREENon [id number] BLOODNegativeNormal NEGATIVEThe Doctors HospitalComment on above:Performed By: #### CALPOO #### [facility] [address] [place] [address] Dr. Timi TrujilloF 14(COMP METB)on 02-17-9822Gszzidr [Mass/Vol]4.2 g/dLNormal 3.4-5.0The Doctors HospitalComment on above:Performed By: #### CALPOO #### [facility] [address] [address] [address] Timi PraterAlbumin/Globulin [Mass ratio]1.2 {ratio}NormalThe Doctors HospitalComment on above:Performed By: #### CALPOO #### [facility] [address] [address] [address] Timi GreenbergP [Catalytic activity/Vol]55 U/IDylzjj12-891Cgl Doctors HospitalComment on above:Performed By: #### CALPOO #### [facility] [address] [place] [address] Dr. Timi GreenbergT [Catalytic activity/Vol]14 U/OAduumx93-34Mxt Doctors HospitalComment on above:Performed By: #### CALPOO #### [facility] [address] [place] [address] Dr. Timi Salmon gap [Moles/Vol]11.9 mmol/LNormalThe [facility] Comment on above:Performed By: #### CALPOO #### [facility] [address] [place] [address] Dr. Timi PraterAST [Catalytic activity/Vol]13 U/LCritically ody52-85Yge Doctors HospitalComment on above:Performed By: #### CALPOO #### [facility] [address] [place] [address] Dr. Timi PraterBilirubin [Mass/Vol]0.6 mg/dLNormal0.2-1.0[facility] Comment on above:Performed By: #### CALPOO #### [facility] [address] [place] [address] Dr. Timi PraterCalcium [Mass/Vol]9.4 mg/dLNormal8.5-10.1[facility] Comment on above:Performed By: #### CALPOO #### [facility] [address] [address] [address] Timi PraterChloride [Moles/Vol]104 mmol/PZmjdtl47-230Omw [facility] Comment on above:Performed By: #### CALPOO #### [facility] [address] [address] [address] Timi PraterCO2 [Moles/Vol]26.6 mmol/DVpkplm97.0-32.0[facility] Comment on above:Performed By: #### CALPOO #### [facility] [address] [address] [address] Timi PraterCreatinine [Mass/Vol]0.85 mg/dLNormal0.55-1.02The Doctors HospitalComment on above:Performed By: #### CALPOO #### [facility] [address] [address] [address] Capellan ChangEGFR-AF SOUTH SUDANESE>60Normal>=60The Doctors HospitalComment on above:Performed By: #### CALPOO #### [facility] [address] [address] [address] Timi RomeroGFR-NON AF SOUTH SUDANESE>60Normal>=60The Doctors HospitalComment on above:Performed By: #### CALPOO #### [facility] [address] [address] [address] Timi PraterGlobulin (S) [Mass/Vol]3.6 g/dLNormalThe Doctors HospitalComment on above:Performed By: #### CALPOO #### [facility] [address] [address] [address] Timi PraterGlucose [Mass/Vol]100 mg/aUOtwbtj13-752Xgc [facility] Comment on above:Performed By: #### CALPOO #### [facility] [address] [address] [address] Timi PraterPotassium [Moles/Vol]3.5 mmol/LNormal3.5-5.1[facility] Comment on above:Performed By: #### CALPOO #### [facility] [address] [address] [address] Timi PraterProtein [Mass/Vol]7.8 g/dLNormal6.4-8.2[facility] Comment on above:Performed By: #### CALPOO #### [facility] [address] [place] [address] Dr. Timi PraterSodium [Moles/Vol]139 mmol/TWjkkdp007-980Daz [facility] Comment on above:Performed By: #### CALPOO #### [facility] [address] [place] [address] Dr. Timi PraterUrea nitrogen [Mass/Vol]13.0 mg/dLNormal7.0-18.0The Doctors HospitalComment on above:Performed By: #### CALPOO #### [facility] [address] [place] [address] Dr. Timi PraterUrea nitrogen/Creatinine [Mass ratio]15.3 mg/mgNormalThe Doctors HospitalComment on above:Performed By: #### CALPOO #### [facility] [address] [place] [address] Dr. Timi Gupta. DIFF PCRon 3C. DIFFICILE PCRNegativeNormalNEGATIVEThe Doctors HospitalComment on above:Performed By: #### THYRABS #### [facility] [address] [place] [address] Dr. Timi PraterPANCREATIC ELASTASE FECALon [id number] Elastase, Fecal 253 ug Elast./gNormal>200The Doctors HospitalComment on above:Result Comment: Severe Pancreatic Insufficiency: <100 Moderate Pancreatic Insufficiency: 100 - 200 Normal: >200Performed By: #### CALPOO #### [facility] [address] [place] [address] Dr. Timi Chino SINGLE QUAD RT UPPERon [id number] SINGLE QUAD RT UPPEREXAM: US SINGLE QUAD [...] Electronically authenticated by: DARA SAVAGE Date: 2022-10-31 08:39[facility] AUTO DIFFon [id number] #0.1 103/ulNormal0.0-0.1The Doctors HospitalComment on above:Performed By: #### CBC #### [facility] [address] [address] [address] Timi PraterBasophils/100 WBC (Bld)0.9 %Normal0.2-2.0[facility] Comment on above:Performed By: #### CBC #### [facility] [address] [address] [address] Timi Mejia #0.1 103/ulNormal0.0-0.7The Doctors HospitalComment on above: Performed By: #### CBC #### [facility] [address] [address] [address] Timi Romeroosinophils/100 WBC (Bld)2.6 %Normal0.9-7.0[facility] Comment on above:Performed By: #### CBC #### [facility] [address] [address] [address] Timi Romerorythrocyte distribution width (RBC) [Ratio]11.9 %Lbtkcx67.0-15.0 The Doctors HospitalComment on above:Performed By: #### CBC #### [facility] [address] [address] [address] Timi PraterHematocrit (Bld) [Volume fraction]41.0 %Pytevh73.0-48.0The Doctors HospitalComment on above:Performed By: #### CBC #### [facility] [address] [place] [address] Dr. Timi PraterHemoglobin (Bld) [Mass/Vol]14.2 g/qLJxwlix53.0-16.0The Doctors HospitalComment on above:Performed By: #### CBC #### [facility] [address] [place] [address] Dr. Timi Delong #0.02 10e3/ulNormal0.00-0.03The Doctors HospitalComment on above:Performed By: #### CBC #### [facility] [address] [place] [address] Dr. Timi Delong %0.4 %Normal0.0-0.5The Doctors HospitalComment on above: Performed By: #### CBC #### [facility] [address] [place] [address] Dr. Timi Webster #1.7 103/ulNormal1.2-3.8The Doctors HospitalComment on above:Performed By: #### CBC #### [facility] [address] [place] [address] Dr. Timi Malcolmhocytes/100 WBC (Bld)31.2 %Bnmihk02.5-60.0The [facility] HospitalCombeaumont hospital on above:Performed By: #### CBC #### [facility] [address] [place] [address] Dr. Timi SandersUAL DIFF REQNONormalThe Doctors HospitalComment on above: Performed By: #### CBC #### [facility] [address] [place] [address] Dr. Timi Escamilla (RBC) [Entitic mass]31.7 jjSouujb42.7-34.0The Doctors HospitalComment on above:Performed By: #### CBC #### [facility] [address] [place] [address] Dr. Timi Escamilla (RBC) [Mass/Vol]34.6 g/wZUkhovx01.9-35.2The Doctors HospitalComment on above:Performed By: #### CBC #### [facility] [address] [address] [address] Timi EscamillaV (RBC) [Entitic vol]91.5 eIUvwdxo78.0-99.0The Doctors HospitalComment on above:Performed By: #### CBC #### [facility] [address] [address] [address] Timi Ortiz #0.5 103/ulNormal0.3-0.8The [facility] HospitalComment on above:Performed By: #### CBC #### [facility] [address] [address] [address] Timi Turciosocytes/100 WBC (Bld)8.7 %Normal1.7-12.0The [facility] on above:Performed By: #### CBC #### [facility] [address] [place] [address] Dr. Timi Mott #3.1 103/ulNormal1.4-6.5The Doctors HospitalComment on above:Performed By: #### CBC #### [facility] [address] [place] [address] Dr. Timi Guzmanutrophils/100 WBC (Bld)56.2 %Rnybxq40.0-75.0The Doctors HospitalComment on above:Performed By: #### CBC #### [facility] [address] [place] [address] Dr. Timi Zamanlet mean volume (Bld) [Entitic vol]10.8 fLNormal9.5-13.5The Doctors HospitalComment on above:Performed By: #### CBC #### [facility] [address] [place] [address] Dr. Timi PraterPLT219 103/ufTveftq928-864Caw Doctors HospitalComment on above: Performed By: #### CBC #### [facility] [address] [place] [address] Dr. Tiim PraterRBC4.48 106/ulNormal4.20-5.40The Doctors HospitalComment on above:Performed By: #### CBC #### [facility] [address] [place] [address] Dr. iTmi PraterWBC5.4 103/ulNormal4.0-11.0The Doctors HospitalComment on above: Performed By: #### CBC #### [facility] [address] [place] [address] Dr. Timi PraterPROF 14(COMP METB)on 63-25-5639Qefxtnj [Mass/Vol]4.5 g/dLNormal 3.4-5.0The Doctors HospitalComment on above:Performed By: #### CDIFPOC #### [facility] [address] [place] [address] Dr. Timi PraterAlbumin/Globulin [Mass ratio]1.5 {ratio}NormalThe Doctors HospitalComment on above:Performed By: #### CDIFPOC #### [facility] [address] [place] [address] Dr. Timi Oconnor [Catalytic activity/Vol]56 U/GZzgfdn30-224Ylj Doctors HospitalComment on above:Performed By: #### CDIFPOC #### [facility] [address] [place] [address] Dr. Timi Pizarro [Catalytic activity/Vol]16 U/NKpmlux78-60Tkg Doctors HospitalComment on above:Performed By: #### CDIFPOC #### [facility] [address] [place] [address] Dr. Timi Salmon gap [Moles/Vol]15.5 mmol/LNormalThe [facility] on above:Performed By: #### CDIFPOC #### [facility] [address] [place] [address] Dr. Timi Vizcaino [Catalytic activity/Vol]13 U/LCritically lpj27-82Dvv Doctors HospitalComment on above:Performed By: #### CDIFPOC #### [facility] [address] [place] [address] Dr. Timi PraterBilirubin [Mass/Vol]0.6 mg/dLNormal0.2-1.0[facility] Comment on above:Performed By: #### CDIFPOC #### [facility] [address] [place] [address] Dr. Timi PraterCalcium [Mass/Vol]9.3 mg/dLNormal8.5-10.1[facility] Comment on above:Performed By: #### CDIFPOC #### [facility] [address] [place] [address] Dr. Timi PraterChloride [Moles/Vol]104 mmol/DRlmcox71-804Cid [facility] Comment on above:Performed By: #### CDIFPOC #### [facility] [address] [place] [address] Dr. Timi PraterCO2 [Moles/Vol]25.7 mmol/BSrbjck39.0-32.0[facility] Comment on above:Performed By: #### CDIFPOC #### [facility] [address] [place] [address] Dr. Timi PraterCreatinine [Mass/Vol]0.71 mg/dLNormal0.55-1.02The Doctors HospitalComment on above:Performed By: #### CDIFPOC #### [facility] [address] [place] [address] Dr. Timi RomeroGFR-AF SOUTH SUDANESE>60Normal>=60The Doctors HospitalComment on above:Performed By: #### CDIFPOC #### [facility] [address] [place] [address] Dr. Timi RomeroGFR-NON AF S[place]>60Normal>=60The Doctors HospitalComment on above:Performed By: #### CDIFPOC #### [facility] [address] [place] [address] Dr. Timi PraterGlobulin (S) [Mass/Vol]3.1 g/dLNormalThe Doctors HospitalComment on above:Performed By: #### CDIFPOC #### [facility] [address] [place] [address] Dr. Timi PraterGlucose [Mass/Vol]77 mg/bBIifwrq12-272JsmTrihealth M[facility] Comment on above:Performed By: #### CDIFPOC #### [facility] [address] [place] [address] Dr. Timi PraterPotassium [Moles/Vol]4.2 mmol/LNormal3.5-5.1[facility] Comment on above:Performed By: #### CDIFPOC #### [facility] [address] [place] [address] Dr. Timi PraterProtein [Mass/Vol]7.6 g/dLNormal6.4-8.2[facility] Comment on above:Performed By: #### CDIFPOC #### [facility] [address] [place] [address] Dr. Timi PraterSodium [Moles/Vol]141 mmol/ZBvcbdp550-549TzaTrihealth Mccull[facility] Comment on above:Performed By: #### CDIFPOC #### [facility] [address] [place] [address] Dr. Timi PraterUrea nitrogen [Mass/Vol]15.0 mg/dLNormal7.0-18.0The Doctors HospitalComment on above:Performed By: #### CDIFPOC #### [facility] [address] [place] [address] Dr. Timi Villa nitrogen/Creatinine [Mass ratio]21.1 mg/mgNormalThe Doctors HospitalComment on above:Performed By: #### CDIFPOC #### [facility] [address] [place] [address] Dr. Timi PraterLIPASEon 52-06-6532Kaihae [Catalytic activity/Vol]117.0 U/LNormal 73.0-393.0[facility]de Memorial HospitalComment on above:Performed By: #### CDIFPOC #### [facility] [address] [place] [address] Dr. Timi PraterCT ABD/PELV W CONon 72-62-8624IC ABD/PELV W CONEXAMINATION: CT ABD/PELV W CON [...] Electronically authenticated by: AZAEL GRIFFIN Date: 2022-10-18 11:02[facility] CenterCORTISOL 24HR URINEon 08-22-1692Ozywlnih,F,ug/24hr,U19 ug/24 hr Normal6-42The Doctors HospitalComment on above:Performed By: #### CORT24 #### [facility] [address] [place] [address] Dr. Timi PraterCortisol,F,ug/L,U18 ug/LNormalUndefinedTrihealth Mccull[facility] Comment on above:Performed By: #### GCWI00 #### [facility] [address] [place] [address] Dr. Timi PraterCLOSTRIDIUM DIFFICILE PCRon 10-06-2022 difficile Toxin Gene RUCHI NegativeNormalNegativeTrihealth Mccullough-Hyde Memorial HospitalCombeaumont hospital on above:Performed By: #### CALPOO #### [facility] [address] [place] [address] Dr. Timi PraterREVERSE T3on 58-73-5509Rqqkrjt T3, Serum19.3 ng/dLNormal9.2-24.1 [facility] HospitalCombeaumont hospital on above:Result Comment: This test was developed and its performance characteristics determined by [employer]. It has not been cleared or approved by the Food and Drug Administration.Performed By: #### OVAPE #### [facility] [address] [place] [address] Dr. Timi PraterC. DIFF PCRon 09-28-2022. DIFFICILE PCRNegativeNormalNEGATIVEThe Doctors HospitalComment on above:Performed By: #### CDIFPOC #### [facility] [address] [place] [address] Dr. Timi PraterFREE T4on 32-94-7814Bquq T4 [Mass/Vol]0.89 ng/dLNormal0.76-1.46 [facility] HospitalCombeaumont hospital on above:Performed By: #### THYRABS #### [facility] [address] [place] [address] Dr. Timi PraterCORTISOL Mely 11-81-5458Dsvewnfk AM23.5 ug/dLCritically high 6.2-19.4The Doctors HospitalComment on above:Performed By: #### CDIFPOC #### [facility] [address] [place] [address] Dr. Timi PraterTHYROID ANTIBODIESon 76-70-3514Brwpxracnjunq Antibody<1.0Normal 0.0-0.9[facility] on above:Result Comment: Thyroglobulin Antibody measured by m-spatial MethodologyPerformed By: #### THYRABS #### [facility] [address] [place] [address] Dr. Timi PraterThyroid Peroxidase (TPO) Ab10 IU/mLNormal0-34The [facility] Hospitalment on above:Performed By: #### THYRABS #### [facility] [address] [place] [address] Dr. Timi PraterT3, TOTAL (TRIIODOTHYRONINE)on 41-11-0012J0, IVSUB256 ng/dLNormal 71-180The Doctors HospitalComment on above:Performed By: #### OVAPE #### [facility] [address] [place] [address] Dr. Timi ParterFREE T3on 22-09-6768GHQH T32.65 pg/mlLNormal2.18-3.98[facility] HospitalCombeaumont hospital on above:Performed By: #### CDIFPOC #### [facility] [address] [place] [address] Dr. Timi PraterTSHon 90-40-4368MMH4.156 uIU/mLNormal0.358-3.740The [facility] HospitalCombeaum[facility] hospital on above:Performed By: #### CDIFPOC #### [facility] [address] [place] [address] Dr. Timi Siddiqui PYLORI AG STOOLon 09-14-2022H. pylori Stool Ag, EIA NegativeNormalNegativeTrihealth Mccull[facility] HospitalCombeaumont hospital on above:Performed By: #### HPYLORI #### [facility] [address] [place] [address] Dr. Timi Gupta. DIFF PCRon 09-12-2022. DIFFICILE PCRNegativeNormalNEGATIVETrihealth Mccullough-Hyde Memorial HospitalCombeaumont hospital on above:Performed By: #### CDIFPOC #### [facility] [address] [place] [address] Dr. Timi Alvarado CULTUREon 07-83-8093Itgahsxjzjtlh CultureFinal reportNormal [facility] HospitalCom[facility] hospital on above:Performed By: #### OVAPE #### [facility] [address] [place] [address] Dr. Timi Romero coli Shiga Toxin EIANegativeNormalNegativeThe [facility] Comment on above:Performed By: #### OVAPE #### [facility] [address] [place] [address] Dr. Timi Velasquez 1CommentAshtabula County Medical CenterComment on above:Result Comment: No Salmonella or Shigella recovered.Performed By: #### OVAPE #### [facility] [address] [place] [address] Dr. Timi Velasquez Comment: No Campylobacter species isolated. Salmonella/Shigella ScreenFinal reportNoWhite HospitalComment on above:Performed By: #### OVAPE #### [facility] [address] [place] [address] Dr. Timi PraterCALPROTECTIN, FECALon 38-95-5487Shlrlbtnauvp, Fecal<61Fahckj7-152 [facility] HospitalComment on above:Result Comment: Concentration Interpretation Follow-Up <16 - 50 ug/g Normal None >50 -120 ug/g Borderline Re-evaluate in 4-6 weeks >120 ug/g Abnormal Repeat as clinically indicatedPerformed By: #### CALPOO #### [facility] [address] [place] [address] Dr. Timi Gupta. DIFF PCRon 08-30-2022. DIFFICILE PCRNegativermalNEGATIVETrihealth Mccullough-Hyde Memorial HospitalComment on above:Performed By: #### OVAPE #### [facility] [address] [place] [address] Dr. Timi PadronOSTRIDIUM DIFFICILE PCRon 08-26-2022 difficile Toxin Gene RUCHI NegativeNormalNegativeTrihealth Mccullough-Hyde Memorial HospitalComment on above:Performed By: #### CALPOO #### [facility] [address] [place] [address] Dr. Timi Newman URINE PROFILEon 22-42-3138Fulxkmgov Ql (U)NegativeNormal NEGATIVETrihealth Mccullough-Hyde Memorial HospitalComment on above:Performed By: #### THYRABS #### [facility] [address] [place] [address] Dr. Timi Padronarity (U)CLEARNormalCLEARTrihealth Mccullough-Hyde Memorial HospitalComment on above: Performed By: #### THYRABS #### [facility] [address] [address] [address] Timi Powell (U)LT. YELLOWNormalYELLOWTrihealth Mccullough-Hyde Memorial HospitalComment on above:Performed By: #### THYRABS #### [facility] [address] [address] [address] Timi Sue micrscopic examination will be performed if indicated. NormalThe Standard HospitalComment on above:Performed By: #### THYRABS #### [facility] [address] [address] [address] Timi PraterGlucose Ql (U)NegativeNormalNEGATIVETrihealth Mccullough-Hyde Memorial HospitalComment on above:Performed By: #### THYRABS #### [facility] [address] [place] [address] Dr. Timi PraterHemoglobin Ql (U)NegativeNormalNEGATIVEUniversity Hospitals [facility] on above:Performed By: #### THYRABS #### [facility] [address] [place] [address] Dr. Timi PraterKetones Ql (U)NegativeNormalNEGATIVETrihealth Mccullough-Hyde Memorial HospitalComment on above:Performed By: #### THYRABS #### [facility] [address] [place] [address] Dr. Timi PraterLEUKOCYTESNegativeNormalNEGATIVETrihealth Mccullough-Hyde Memorial HospitalComment on above:Performed By: #### THYRABS #### [facility] [address] [place] [address] Dr. Timi PraterNitrite Ql (U)NegativeNormalNEGATIVETrihealth Mccullough-Hyde Memorial HospitalComment on above:Performed By: #### THYRABS #### [facility] [address] [address] [address] Timi PraterpH (U)7.0 [pH]Normal5-9[facility]Hyde Memorial HospitalComment on above: Performed By: #### THYRABS #### [facility] [address] [address] [address] Timi PraterSPEC GRAVITY1.495Jiadod8.005-<=1.025The Doctors HospitalComment on above:Performed By: #### THYRABS #### [facility] [address] [place] [address] Dr. Timi Nickerson PROTEINTRACENormalNEGATIVE/ TRACEThe Doctors HospitalComment on above:Performed By: #### THYRABS #### [facility] [address] [place] [address] Dr. Timi Pinzon MICRO INDNOT INDICATEDNormalThe Doctors HospitalComment on above:Performed By: #### THYRABS #### [facility] [address] [place] [address] Dr. Timi Acuña Qn (U)0.2 {Trini'U}/dLNormal0.2 - 1.0The Doctors HospitalComment on above:Performed By: #### THYRABS #### [facility] [address] [place] [address] Dr. Timi Gupta. DIFF PCRon 08-22-2022. DIFFICILE PCRNegativeNormalNEGATIVEThe Doctors HospitalComment on above:Performed By: #### CDIFPOC #### [facility] [address] [place] [address] Dr. Timi Rios RITA ADMITon 35-16-9567MB [Catalytic activity/Vol]56 U/L Yjfqlq43-654Pvm Doctors HospitalComment on above:Performed By: #### OVAPE #### [facility] [address] [place] [address] Dr. Timi Pierre.MB [Mass/Vol]ng/mLNormal<=3.60The Doctors HospitalComment on above:Performed By: #### OVAPE #### [facility] [address] [place] [address] Dr. Timi PraterHSTROP9.0 pg/mLNormal4.0-51.3The Doctors HospitalComment on above:Result Comment: CUT-OFF POINTS HAVE BEEN ESTABLISHED BASED ON THE FOURTH UNIVERSAL DEFINITIONS OF MYOCARDIAL INFARCTION. THE UPPER REFERENCE LIMIT (URL) OF TROPONIN, DEFINED THE 99TH PERCENTILE OF cTnI DISTRIBUTION IN A REFERENCE POPULATION, HAS BEEN CONFIRMED THE DECISION THRESHOLD FOR NC DIAGNOSIS.Performed By: #### OVAPE #### [facility] [address] [place] [address] Dr. Timi PraterMYO15 ng/mLNormal9-82[facility] Memorial HospitalComment on above: Performed By: #### OVAPE #### [facility] [address] [place] [address] Dr. Timi Willett AUTO DIFFon 45-36-5417JNXZ #0.1 103/ulNormal0.0-0.1The Doctors HospitalComment on above:Performed By: #### CALPOO #### [facility] [address] [place] [address] Dr. Timi PraterBasophils/100 WBC (Bld)0.7 %Normal0.2-2.0[facility] Comment on above:Performed By: #### CALPOO #### [facility] [address] [place] [address] Dr. Timi Mejia #0.2 103/ulNormal0.0-0.7The Doctors HospitalComment on above: Performed By: #### CALPOO #### [facility] [address] [place] [address] Dr. Timi Romeroosinophils/100 WBC (Bld)2.7 %Normal0.9-7.0[facility] Comment on above:Performed By: #### CALPOO #### [facility] [address] [place] [address] Dr. Timi Romerorythrocyte distribution width (RBC) [Ratio]11.9 %Zweove80.0-15.0 The Doctors HospitalComment on above:Performed By: #### CALPOO #### [facility] [address] [place] [address] Dr. Timi PraterHematocrit (Bld) [Volume fraction]39.0 %Grnpya79.0-48.0[facility] HospitalComment on above:Performed By: #### CALPOO #### [facility] [address] [place] [address] Dr. Timi PraterHemoglobin (Bld) [Mass/Vol]13.3 g/mVVqfatg79.0-16.0The Doctors HospitalComment on above:Performed By: #### CALPOO #### [facility] [address] [place] [address] Dr. Timi Delong #0.02 10e3/ulNormal0.00-0.03The Doctors HospitalComment on above:Performed By: #### CALPOO #### [facility] [address] [place] [address] Dr. Timi Delong %0.2 %Normal0.0-0.5The Doctors HospitalComment on above: Performed By: #### CALPOO #### [facility] [address] [place] [address] Dr. Timi Malcolm #3.7 103/ulNormal1.2-3.8The Doctors HospitalComment on above:Performed By: #### CALPOO #### [facility] [address] [place] [address] Dr. Timi Malcolmhocytes/100 WBC (Bld)43.6 %Qvqten31.5-60.0The Doctors HospitalComment on above:Performed By: #### CALPOO #### [facility] [address] [place] [address] Dr. Timi SandersUAL DIFF REQNONormalThe Doctors HospitalComment on above: Performed By: #### CALPOO #### [facility] [address] [place] [address] Dr. Timi Escamilla (RBC) [Entitic mass]31.7 hiTzqjtx54.7-34.0The Doctors HospitalComment on above:Performed By: #### CALPOO #### [facility] [address] [place] [address] Dr. Timi Escamilla (RBC) [Mass/Vol]34.1 g/dSTinlfl36.9-35.2The Doctors HospitalComment on above:Performed By: #### CALPOO #### [facility] [address] [place] [address] Dr. Timi EscamillaV (RBC) [Entitic vol]93.1 dSDdvakm78.0-99.0The [facility] Hospitalment on above:Performed By: #### CALPOO #### [facility] [address] [place] [address] Dr. Timi Ortiz #0.8 103/ulNormal0.3-0.8The Doctors HospitalComment on above:Performed By: #### CALPOO #### [facility] [address] [place] [address] Dr. Timi Turciosocytes/100 WBC (Bld)8.9 %Normal1.7-12.0[facility] Comment on above:Performed By: #### CALPOO #### [facility] [address] [place] [address] Dr. Timi Mott #3.8 103/ulNormal1.4-6.5The [facility] Hospitalment on above:Performed By: #### CALPOO #### [facility] [address] [place] [address] Dr. Timi Guzmanutrophils/100 WBC (Bld)43.9 %Xfomcm80.0-75.0The [facility] HospitalCombeaumont hospital on above:Performed By: #### CALPOO #### [facility] [address] [place] [address] Dr. Timi Zamanlet mean volume (Bld) [Entitic vol]11.1 fLNormal9.5-13.5The [facility] Hospitalment on above:Performed By: #### CALPOO #### [facility] [address] [place] [address] Dr. Timi PraterPLT218 103/pwOgbcfv434-676Prz [facility] HospitalCombeaumont hospital on above: Performed By: #### CALPOO #### [facility] [address] [place] [address] Dr. Timi PraterRBC4.19 106/ulCritically low4.20-5.40The [facility] Hospitalment on above:Performed By: #### CALPOO #### [facility] [address] [place] [address] Dr. Timi PraterWBC8.6 103/ulNormal4.0-11.0The Doctors HospitalComment on above: Performed By: #### CALPOO #### [facility] [address] [place] [address] Dr. Timi TrujilloF 14(COMP METB)on 51-05-7009Aohekxz [Mass/Vol]4.2 g/dLNormal 3.4-5.0The Doctors HospitalComment on above:Performed By: #### OVAPE #### [facility] [address] [place] [address] Dr. Timi PraterAlbumin/Globulin [Mass ratio]1.3 {ratio}NormalThe Doctors HospitalComment on above:Performed By: #### OVAPE #### [facility] [address] [place] [address] Dr. Timi GreenbergP [Catalytic activity/Vol]50 U/VKvcqrf53-300Xsi Doctors HospitalComment on above:Performed By: #### OVAPE #### [facility] [address] [place] [address] Dr. Timi Pizarro [Catalytic activity/Vol]13 U/LCritically zth21-19Rqk Doctors HospitalComment on above:Performed By: #### OVAPE #### [facility] [address] [place] [address] Dr. Timi Salmon gap [Moles/Vol]13.8 mmol/LNormalThe [facility] Comment on above:Performed By: #### OVAPE #### [facility] [address] [place] [address] Dr. Timi PraterAST [Catalytic activity/Vol]14 U/LCritically lsu25-87Tvd Doctors HospitalComment on above:Performed By: #### OVAPE #### [facility] [address] [place] [address] Dr. Timi PraterBilirubin [Mass/Vol]0.4 mg/dLNormal0.2-1.0[facility] Comment on above:Performed By: #### OVAPE #### [facility] [address] [address] [address] Timi PraterCalcium [Mass/Vol]9.2 mg/dLNormal8.5-10.1[facility] Comment on above:Performed By: #### OVAPE #### [facility] [address] [address] [address] Timi PraterChloride [Moles/Vol]102 mmol/AGsxkmi07-986K[facility] Comment on above:Performed By: #### OVAPE #### [facility] [address] [address] [address] Timi PraterCO2 [Moles/Vol]26.9 mmol/MGnmgqa22.0-32.0[facility] Comment on above:Performed By: #### OVAPE #### [facility] [address] [address] [address] Timi PraterCreatinine [Mass/Vol]0.73 mg/dLNormal0.55-1.02The [facility] HospitalComment on above:Performed By: #### OVAPE #### [facility] [address] [address] [address] Timi RomeroGFR-AF SOUTH SUDANESE>60Normal>=60The Doctors HospitalComment on above:Performed By: #### OVAPE #### [facility] [address] [address] [address] Timi RomeroGFR-NON AF SOUTH [place]UDANESE>60Normal>=60The [facility] HospitalComment on above:Performed By: #### OVAPE #### [facility] [address] [address] [address] Timi PraterGlobulin (S) [Mass/Vol]3.3 g/dLNormalThe Doctors HospitalComment on above:Performed By: #### OVAPE #### [facility] [address] [address] [address] Timi PraterGlucose [Mass/Vol]107 mg/dLCritically kbed01-346Rey Doctors HospitalComment on above:Performed By: #### OVAPE #### [facility] [address] [address] [address] Timi PraterPotassium [Moles/Vol]3.7 mmol/LNormal3.5-5.1[facility] Comment on above:Performed By: #### OVAPE #### [facility] [address] [address] [address] Timi PraterProtein [Mass/Vol]7.5 g/dLNormal6.4-8.2[facility] Comment on above:Performed By: #### OVAPE #### [facility] [address] [address] [address] Timi PraterSodium [Moles/Vol]139 mmol/XLanelp439-165WtkTrihealth Mccullough-Hyde [facility] Hospital Comment on above:Performed By: #### OVAPE #### [facility] [address] [place] [address] Dr. Timi PraterUrea nitrogen [Mass/Vol]14.0 mg/dLNormal7.0-18.0[facility] HospitalComment on above:Performed By: #### OVAPE #### [facility] [address] [place] [address] Dr. Timi PraterUrea nitrogen/Creatinine [Mass ratio]19.2 mg/mgNoWhite HospitalComment on above:Performed By: #### OVAPE #### [facility] [address] [place] [address] Dr. Timi Sanz ACOG PANEL 2: 21 to 29on 08-21-2022..NormalThe Doctors HospitalComment on above:Performed By: #### OVAPE #### [facility] [address] [place] [address] Dr. Timi Martinez Gdln ACOG Uaahrxo01-90HihubxVqxWhite HospitalComment on above:Performed By: #### OVAPE #### [facility] [address] [place] [address] Dr. Timi PraterDIAGNOSIS:CommentAbKettering Health DaytonComment on above: Result Comment: EPITHELIAL CELL ABNORMALITY. ATYPICAL SQUAMOUS CELLS OF UNDETERMINED SIGNIFICANCE (ASC-US).Performed By: #### OVAPE #### [facility] [address] [address] [address] Capellan ChangElectronically signed by:[facility] Comment on above:Result Comment: Maranda Segal MD, PathologistPerformed By: #### OVAPE #### [facility] [address] [address] [address] Timi PraterHPV AptimaNegativeNormalNegativeThe Doctors HospitalComment on above:Result Comment: This nucleic acid amplification test detects fourteen high-risk HPV types (16,18,31,33,35,39,45,51,52,56,58,59,66,68) without differentiation.Performed By: #### OVAPE #### [facility] [address] [place] [address] Dr. Timi PraterMethodology:[facility] on above: Result Comment: This liquid based ThinPrep(R) pap test was screened with the use of an image guided system.Performed By: #### OVAPE #### [facility] [address] [place] [address] Dr. Timi PraterNote:CommentMemorial Health System Marietta Memorial [...] do occur. .Performed By: #### OVAPE #### [facility] [address] [address] [address] Timi PraterPathologist Provided [id number] General Hospital Comment on above:Result Comment: [id number] By: #### OVAPE #### [facility] [address] [address] [address] Timi PraterPerformed by:[facility] on above: Result Comment: Melia Holguin, Mushroom Cutter (ASCP)Performed By: #### OVAPE #### [facility] [address] [place] [address] Dr. Timi PraterRecommendation:CommentAbSelect Medical [facility] on above:Result Comment: Suggest follow up as clinically appropriate.Performed By: #### OVAPE #### [facility] [address] [place] [address] Dr. Timi PraterReflex Criteria:CommentMemorial Health System Marietta Memorial Hospital on above:Result Comment: See below for HPV testing results. .Performed By: #### OVAPE #### [facility] [address] [place] [address] Dr. Timi PraterSpecimen adequacy:CommentMemorial Health System Marietta Memorial Hospital on above:Result Comment: Satisfactory for evaluation. Endocervical and/or squamous metaplastic cells (endocervical component) are present.Performed By: #### OVAPE #### [facility] [address] [place] [address] Dr. Timi Gupta. DIFF PCRon 07-27-2022. DIFFICILE PCRPositiveCritically abnormalNEGATIVEThe Doctors HospitalComment on above:Performed By: #### THYRABS #### [facility] [address] [place] [address] Dr. Timi Gupta. DIFF PCRon 07-13-2022. DIFFICILE PCRNegativeNormalNEGATIVEThe Doctors HospitalComment on above:Performed By: #### CDIFPOC #### [facility] [address] [place] [address] Dr. Timi PraterUS SINGLE QUAD RT UPPERon [id number] SINGLE QUAD RT UPPER EXAMINATION: US SINGLE [...] authenticated by: DARA HUMPHREY Date: 2022-05-11 17:22NormalThe Doctors HospitalFECAL FAT QUANTITATIVEon 22-83-8578Iyzve Weight (Total)233 g NormalThe Doctors HospitalComment on above:Performed By: #### CALPOO #### [facility] [address] [place] [address] Dr. Timi Gandhi, (Fecal Lipids)Qn1.3 g/24 hrNormal0.0-7.1The [facility] Hospitalment on above:Result Comment: This value is based on a 72 hour stool collection.Performed By: #### CALPOO #### [address] [address] [address] Timi PraterLACTOFERRIN FECAL QUANTon 89-57-5176Rfbkklvieud, Fecal, Quant. <1.79Ferexx3.00-7.24[facility] on above:Result Comment: Results verified by [...] bowel syndrome (IBS).Performed By: #### CALPOO #### [facility] [address] [place] [address] Dr. Timi ParterPANCREATIC ELASTASE FECALon 97-12-2610Bieimajyqd Elastase, Fecal 369 ug Elast./gNormal>200[facility] on above:Result Comment: Severe Pancreatic Insufficiency: <100 Moderate Pancreatic Insufficiency: 100 - 200 Normal: >200Performed By: #### THYRABS #### [address] [address] [address] Timi PraterC. DIFF PCRon 2C. DIFFICILE PCRNegativeNormalNEGATIVEThe [facility] Hospitalment on above:Performed By: #### OVAPE #### [facility] [address] [place] [address] Dr. Timi Blanchard PANEL (PCR)on 43-90-0701Zuyfibojza F 40/41Not detectedNormal NOT DETECTEDThe Doctors HospitalComment on above:Performed By: #### GIPANEL #### [facility] [address] [place] [address] Dr. Timi PraterAstrovirusNot detectedNormalNOT DETECTEDThe [facility] Comment on above:Performed By: #### GIPANEL #### [facility] [address] [place] [address] Dr. Timi Gupta. Diff toxin A/BNot detectedNormalNOT DETECTEDThe Doctors HospitalComment on above:Performed By: #### GIPANEL #### [facility] [address] [place] [address] Dr. Timi ChupylobacterNot detectedNormalNOT DETECTEDThe [facility] Comment on above:Performed By: #### GIPANEL #### [facility] [address] [place] [address] Dr. Timi TrevinoyptosporidiumNot detectedNormalNOT DETECTEDThe Doctors HospitalComment on above:Performed By: #### GIPANEL #### [facility] [address] [place] [address] Dr. Timi Christensen. CayetanensisNot detectedNormalNOT DETECTEDThe Doctors HospitalComment on above:Performed By: #### MEREDITHANEL #### [facility] [address] [place] [address] Dr. Timi Santos Coli Y519Gys ApplicableNormalNot ApplicableThe Doctors HospitalComment on above:Performed By: #### GIPANEL #### [facility] [address] [place] [address] Dr. Timi Santos histolyticaNot detectedNormalNOT DETECTEDThe [facility] Comment on above:Performed By: #### GIPANEL #### [facility] [address] [place] [address] Dr. Timi RomeroAECNot detectedNormalNOT DETECTEDThe Doctors HospitalComment on above:Performed By: #### GIPANEL #### [facility] [address] [address] [address] Timi Graham detectedNormalNOT DETECTEDThe Doctors HospitalComment on above:Performed By: #### GIPANEL #### [facility] [address] [address] [address] Timi RomeroPECNot detectedNormalNOT DETECTEDThe Doctors HospitalComment on above:Performed By: #### GIPANEL #### [facility] [address] [address] [address] iTmi RomeroTEHaley detectedNormalNOT DETECTEDThe Doctors HospitalComment on above:Performed By: #### MEREDITHANEL #### [facility] [address] [address] [address] Timi Rodriguez LambliaNot detectedNormalNOT DETECTEDThe [facility] Comment on above:Performed By: #### DAVEL #### [facility] [address] [address] [address] Timi BRYSONMount Carmel Health SystemComment on above:Performed By: #### MEREDITHANEL #### [facility] [address] [address] [address] Timi Jay ANITA HEADERGI [facility] Comment on above:Performed By: #### MEREDITHANEL #### [facility] [address] [address] [address] Timi Moon ECOLIGI PANEL DIARRHEAGENIC E.COLI / SHIGELLAAshtabula County Medical CenterComment on above:Performed By: #### MEREDITHANEL #### [facility] [address] [address] [address] Timi Moon INFOProMedica Flower HospitalComment on above: Result Comment: EAEC- Enteroaggregative E. Coli EPEC- Enteropathogenic E. Coli ETEC- Enterotoxigenic E. Coli lt/st STEC- Shigella-like toxin-producing E. Coli stx1/stx2 EIEC- Shigella/Enteroinvasive E. ColiPerformed By: #### GIPANEL #### [facility] [address] [address] [address] Timi Moon PARASITESGI PANEL [facility] Comment on above:Performed By: #### MEREDITHANEL #### [facility] [address] [address] [address] Timi Moon VIRUSGI PANEL VIRUSESAshtabula County Medical CenterComment on above:Performed By: #### MEREDITHANEL #### [facility] [address] [address] [address] Timi Heartrovirus GI/GIINot detectedNormalNOT DETECTEDThe Doctors HospitalComment on above:Performed By: #### MEREDITHANEL #### [facility] [address] [address] [address] Timi Ibanez ShigelloidesNot detectedNormalNOT DETECTEDThe Doctors HospitalComment on above:Performed By: #### DAVEL #### [facility] [address] [address] [address] Timi PraterRotavirus ANot detectedNormalNOT DETECTEDTri[facility] Comment on above:Performed By: #### DAVEL #### [facility] [address] [address] [address] Timi PraterSalmonellaNot detectedNormalNOT DETECTEDTri[facility] Comment on above:Performed By: #### DAVEL #### [facility] [address] [address] [address] Timi PraterSapovirusNot detectedNormalNOT DETECTEDTri[facility] Comment on above:Performed By: #### MEREDITHANEL #### [facility] [address] [address] [address] Timi PraterSTECNot detectedNormalNOT DETECTEDThe Doctors HospitalComment on above:Performed By: #### DAVEL #### [facility] [address] [address] [address] Timi PraterVibrioNot detectedNormalNOT DETECTEDThe Doctors HospitalComment on above:Performed By: #### GIPANEL #### [facility] [address] [address] [address] Timi Gregory CholeraNot detectedNormalNOT DETECTEDTri[facility] Comment on above:Performed By: #### GIPANEL #### [facility] [address] [place] [address] Dr. Timi Wallis. EnterocoliticaNot detectedNormalNOT DETECTEDThe Doctors HospitalComment on above:Performed By: #### GIPANEL #### [facility] [address] [address] [address] Timi Alvarado CULTUREon 46-65-0595Ffsypnqisodyk CultureFinal reportNormal [facility] HospitalComment on above:Performed By: #### CXSTOOL #### [facility] [address] [place] [address] Dr. Timi pandey Shiga Toxin EIANegativeNormalNegativeTrihealth [facility] Comment on above:Performed By: #### CXSTOOL #### [facility] [address] [place] [address] Dr. Timi Velasquez 1CommentAshtabula County Medical CenterComment on above:Result Comment: No Salmonella or Shigella recovered.Performed By: #### CXSTOOL #### [facility] [address] [place] [address] Dr. Timi Velasquez Comment: No Campylobacter species isolated. Salmonella/Shigella ScreenFinal reportNoWhite HospitalComment on above:Performed By: #### CXSTOOL #### [facility] [address] [place] [address] Dr. Timi PadronOSTRIDIUM DIFFICILE PCRon 02-03-2022 difficile Toxin Gene RUCHI NegativeNormalNegativeTrihealth Mccullough-Hyde Memorial HospitalCombeaumont hospital on above:Performed By: #### CDIFPOC #### [facility] [address] [place] [address] Dr. Timi Gupta. DIFF PCRon 01-14-2022. DIFFICILE PCRNegativeNormalNEGATIVEThe Doctors HospitalComment on above:Performed By: #### CALPOO #### [facility] [address] [address] [address] Capellan ChangEpatriciooscopy Reporton [id number] ReportMR#: [id number] [facility] Pt. Name: Chioma Henao Surgery Date: 12/29/2021 Room #: Z0 Date of : 2000 PROCEDURE NOTE ATTENDING: Paula Huggins MD PROCEDURE: Colonoscopy with FMT. INDICATION FOR PROCEDURE: Recurrent C diff. TYPE OF ANESTHESIA: Conscious sedation, 6 mg of Versed, 150 mcg of fentanyl, and 25 mg of Benadryl. MATHEMATICAL SCIENCES PROFESSOR PHYSICIAN: Darren Baig M.D. QUALITY OF THE [...] Baig MD Date Trans: 12/30/2021 03:17 A/mmo DN_JN:[id number] cc: Gabino Owen M.D. [address], [place] [address]FtxtktPuyCorey Hospital SARS COV2 IDon [id number]-CoV-2 (COVID-19) RNA RUCHI+probe Ql (Unsp spec)NegativeNormal NEGATIVEThe [facility] HospitalComment on above:Result Comment: ID NOW COVID-19 [...] Compliance, or Certificate of Accreditation.Performed By: #### [id number] #### [facility] [address] [facility] [address], [facility] URINE PREGNANCYon 24-74-1258Huwr HCG ( test) Ql (U)NegativeNormalNEGATIVEThe [facility] HospitalComment on above:Result Comment: Performed in PACUPerformed By: #### [id number] #### [facility] [address] [facility] [place] [address], [facility] Office/Clinic Noteon 30-25-3547Glvsnag Surgery Office/Clinic NoteChief Complaint post operative follow [...] Use:., 06/21/2021 Family History Cancer: Father. Stroke: Mother.[facility] Health SystemComment on above:Result Comment: Electronically Signed By: KALEB MACKEY, Ana Palmerbr\Date and Time Signed: 07/08/21 16:21 ESTPathology Noteon 55-69-9954Yvlzhleex Note [id number]:[address] [place], [place] [address]Operative Reporton 17-30-2699Ecspirdnn Report [id number]#1.00CD:[address] [place], [place] [address]Lab Reportson 08-43-7384Sbe Reports [id number]#1.00CD:[address] [place], [place] [address]Consent for Procedure/Surgeryon 71-31-8917Dptirir for Procedure/Surgery [id number]#1.00CD:[address] [place], [place] [address]Provider Letter [facility] 40-97-3751Kvzmmbzy Letter [facility] 2020 Gabino Owen, [address] [place] [address] Re: CHIOMA HENAO Date of : 2000 Thank you for your referral of Chioma Henao who was seen on consultation on 06/21/2021 for daily nausea with abdominal cramping. An EGD is planned for further evaluation. I have enclosed my consultation note for your review. I will be happy to follow Chioma. Sincerely, Ana De La Cruz MD General SurgeryNoBarberton Citizens HospitalAmbulatory Clinical Summaryon 78-30-1397Hzzmpjrbmv Clinical Summary {[id number]-29-x2-9b-55-t8-4l-ab-fd-79-68}CD:[id number] Citizens HospitalPhysician Referralon 41-54-5838Dvhaueesh Referral [id number]#1.00CD:127NoBarberton Citizens HospitalCOVID Quick Testingon 12-50-2385KhojmmXhidftlpJscbi [employer] Other S. pyogenes Ag Ql (Throat)on 05-05-2021. pyogenes Org specific cx Ql (Throat)NegativeNort [employer] Other Ambulatory Clinical Summaryon 23-57-1088Giiguaworj Clinical Summary{ji-[id number]-[id number]-[id number]-g8-j9-2b-47-eb-d1-17}CD:[id number] Fostoria Community HospitalGeneral Surgery Office/Clinic Noteon 01-04-2021 General Surgery [...] Use:., 01/04/2021 Family History Cancer: Father. Stroke: Mother.[facility] Health SystemComment on above:Result Comment: Electronically Signed By: KALEB MACKEY, Ana Lan\Date and Time Signed: 01/04/21 14:32 EDTPathology Noteon 67-60-7514Myicxihca Note [id number]:[address] [place], [place] [address]Outside Colonoscopyon 08-44-8779Cjbjjgv Colonoscopy [id number]#1.00CD:[address] [place], [place] [address]Lab Reportson 21-75-9653Onv Reports [id number]#1.00CD:[address] [place], [place] [address]Consent for Procedure/Surgeryon 75-14-5548Hkscdwh for Procedure/Surgery [id number]#1.00CD:[address] [place], [place] [address]Provider Letter FTMCon 36-19-6046Pjecqvqq Letter [facility] Gabino Owen, [facility] [place] [address] Re: CHIOMA HENAO Date of : 2000 Thank you for your referral of Chioma Henao who was seen on consultation on December 07, 2020, for colonoscopy due to abdominal pain and diarrhea. A colonoscopy is planned. I have enclosed my consultationnotes for your review. I will be happy to follow Chioma should her symptoms persist. Sincerely, Ana De La Cruz MD General SurgeryAvita Health SystemAmbulatory Clinical Summaryon 84-45-2465Qptavodoec Clinical Summary {[id number]-y4-25-0r-gh-0b-7c-0f-34}CD:[id number] Citizens HospitalPatient Educationon 23-25-1492Mjwzpvx EducationPreventive Health Exercising to Stay Healthy To [...] Yard work, such as: ? Pushing a formulator. ? Raking and bagging leaves. ? Washing [...] 08/11/2011 Document Revised: 06/21/2018 Document Reviewed: 05/30/2018 [employer] Patient Education ? 2020 [employer] Radiology Colonoscopy, Adult A colonoscopy is [...] if you have certain (more content not included)...[facility] Physician Referralon 84-08-9433Bvnazmzio Referral [id number]#1.00CD:127NormalOhio State University Wexner Medical CenterNo Panel Informationon 61-56-8609Ekormvnla Clinic Vital Signs Date TimeVital SignValuePerforming HricayibzCovhgips74-53-6863 13:52-0400Body muhwfl153.6 cmCorey Heike DO Work Phone: [facility] CenterHcuqlnryav32-83-3073 13:52-0400Body mass index (BMI) [Ratio]19.4 kg/h6Txyop Heike DO Work Phone: [phone] [place], [place] [address]Kczrxdbinx82-69-6401 13:52-0400Body ewwfml08.26 kgCorey Heike DO Work Phone: [facility] CenterJhzhbfiyqw63-51-1264 13:52-0400Diastolic blood mm[Hg]Jeremiah Heike DO Work Phone: [facility] CenterVrcuvvdeaf79-85-0485 13:52-0400Systolic blood nkcxljyv006 mm[Hg]Jeremiah Heike DO Work Phone: [facility] CenterBgrjxsimrk21-32-3381 09:59-0400Body jgafvp759.56 cmAccess [facility]04-23-2025 09:59-0400Body mass index (BMI) [Ratio]19.2 kg/h6LfckzexxnAccess [facility]04-23-2025 09:59-0400Body pdgiezxtvsk90.3 [degF][facility]04-23-2025 09:59-0400Body pacodr90.8 kgAccess [facility]04-23-2025 09:59-0400Diastolic blood rosclbti88 mm[Hg][facility]04-23-2025 09:59-0400 Heart rate78 /minAccess Hospital [facility]04-23-2025 09:59-1557OwP1% (BldA) [Mass fraction]98 %[facility]04-23-2025 09:59-0400 Systolic blood tklwkguh983 mm[Hg][facility]02-12-2025 11:00-0500Diastolic blood yfnxzabi01 mm[Hg]Dara Butler Jr., DO Work Phone: [facility]02-12-2025 11:00-0500Heart rate67 /min Dara Butler Jr., DO Work Phone: [facility]02-12-2025 11:00-0500Respiratory rate 18 /minDleticia Butler Jr., DO Work Phone: [facility]02-12-2025 11:00-1322MyT1% (BldA) [Mass fraction]100 %Dara Butler Jr., DO Work Phone: [facility]02-12-2025 11:00-0500Systolic blood vtljkjos930 mm[Hg]Dara Butler Jr., DO Work Phone: [facility]02-12-2025 10:13-0500Body trhimf707.6 cmDabean Butler Jr., DO Work Phone: [facility]02-12-2025 10:13-0500Body mass index (BMI) [Ratio]19.74 kg/h6XrvwtDara Butler Jr., DO Work Phone: [facility]02-12-2025 10:13-0500Body temperature 98.4 [degF]Dara Butler Jr., DO Work Phone: [facility]02-12-2025 10:13-0500Body fpspei22.16 kgDabean Butler Jr., DO Work Phone: [facility]12-24-2024 07:39-0500Body mass index (BMI) [Ratio]19.74 kg/n7DeysycqvNae Ibarra MD Work Phone: [facility]12-24-2024 07:39-0500Body zykotl57.16 kgNae Ibarra MD Work Phone: [facility]12-24-2024 07:39-0500Diastolic blood exfchgjw19 mm[Hg]Nae Ibarra MD Work Phone: [facility]12-24-2024 07:39-0500Heart rate80 /min Nae Ibarra MD Work Phone: [facility]12-24-2024 07:39-0500Systolic blood qnejbyiv43 mm[Hg]Nae Ibarra MD Work Phone: [facility]12-17-2024 14:18-0500Body rwcoiw728.56 cmAccess [facility]12-17-2024 14:18-0500Body mass index (BMI) [Ratio]19.9 kg/g8ObsbgweqnAccess Hospital [facility]12-17-2024 14:18-0500Body lkbdkaqqinn22.9 [degF][facility]12-17-2024 14:18-0500Body .61 kgAccess Hospital [facility]12-17-2024 14:18-0500Diastolic blood gkrbirqi59 mm[Hg][facility]12-17-2024 14:18-0500 Heart rate77 /minAccess Hospital [facility]12-17-2024 14:18-7931HzH5% (BldA) [Mass fraction]98 %[facility]12-17-2024 14:18-0500 Systolic blood adslmcao307 mm[Hg][facility]12-12-2024 11:56-0500Body mass index (BMI) [Ratio]19.91 kg/b6Wmbnj Heike DO Work Phone: [facility] CenterBlybaffzqb32-35-8282 11:56-0500Body hggemo00.62 kgCorey Heike DO Work Phone: [facility] CenterTumfhgvule27-96-0620 11:56-0500Diastolic blood kfnhmobn72 mm[Hg]Jeremiah Canoo DO Work Phone: [facility] CenterUavkdmbmff51-51-3636 11:56-0500Systolic blood mm[Hg]Jeremiah Canoo DO Work Phone: [facility] CenterCttfwvrsbr12-58-0119 10:38-0400Body mijcwz341.6 cmPaula Pretty MD Work Phone: [facility]10-09-2024 10:38-0400Body mass index (BMI) [Ratio]18.88 kg/e8NmttibegPaula Pretty MD Work Phone: [facility]10-09-2024 10:38-0400Body .9 kgPaula Pretty MD Work Phone: [facility]10-09-2024 10:38-0400Diastolic blood qbeljxox06 mm[Hg]Paula Pretty MD Work Phone: [facility]10-09-2024 10:38-0400Heart rate86 /min Paula Pretty MD Work Phone: [facility]10-09-2024 10:38-0400Respiratory rate 18 /minPaula Pretty MD Work Phone: [facility]10-09-2024 10:38-0400Systolic blood ftlsoesz337 mm[Hg]Paula Pretty MD Work Phone: [facility]09-25-2024 10:51-0400Diastolic blood aotngkbf79 mm[Hg]Whitney Ambriz MD MPH Work Phone: [facility]09-25-2024 10:51-0400 Heart rate68 /Wolf Ambriz MD MPH Work Phone: [facility]09-25-2024 10:51-0400 Respiratory rate18 /Wolf Ambriz MD MPH Work Phone: [facility]09-25-2024 10:51-0400 SaO2% (BldA) [Mass fraction]100 %Whitney Ambriz MD MPH Work Phone: [facility]09-25-2024 10:51-0400 Systolic blood hrdfuaob90 mm[Hg]Whitney Ambriz MD MPH Work Phone: [facility]09-25-2024 10:21-0400 Body ewzzewzujis88.2 [degF]Whitney Ambriz MD MPH Work Phone: [phone] [place], [place] 4565909-25-2024 08:23-0400 Body .6 cmLalbina Ambriz MD MPH Work Phone: [phone] [place], [place] 4565909-25-2024 08:23-0400 Body mass index (BMI) [Ratio]19.74 kg/s8YepoxWhitney Ambriz MD MPH Work Phone: [phone]09-25-2024 08:23-0400 Body yudynx68.16 kgWhitney Ambriz MD MPH Work Phone: [facility]09-04-2024 10:52-0400 Body srotbp462.6 cmPaula Pretty MD Work Phone: [facility]09-04-2024 10:52-0400Body mass index (BMI) [Ratio]18.88 kg/s0SzigknruPaula Pretty MD Work Phone: [facility]09-04-2024 10:52-0400Body .9 kgPaula Pretty MD Work Phone: [facility]09-04-2024 10:52-0400Diastolic blood xasanuog94 mm[Hg]Paula Pretty MD Work Phone: [phone]09-04-2024 10:52-0400Heart rate81 /min Paula Pretty MD Work Phone: [facility]09-04-2024 10:52-0400Respiratory rate 16 /minPaula Pretty MD Work Phone: [address] [address]-04-2024 10:52-0400Systolic blood rvuapvhg227 mm[Hg]Paula Pretty MD Work Phone: [facility]08-28-2024 13:20-0400Body .56 cmDO Ana Adejarrod Work Phone: [phone]08-28-2024 13:20-0400 Body mass index (BMI) [Ratio]19.2 kg/m2DO Ana Bolton Work Phone: [phone]08-28-2024 13:20-0400 Body kmkjny34.8 kgDO Ana Bolton Work Phone: [phone]08-28-2024 13:20-0400 Diastolic blood uelhwjnk42 mm[Hg]DO Ana Bolton Work Phone: [phone]08-28-2024 13:20-0400 Heart rate78 /minDO Ana Bolton Work Phone: [phone] [place], [place] [address]345208-28-2024 13:20-0400 SaO2% (BldA) [Mass fraction]99 %DO Ana Pachecojalenjarrod Work Phone: [phone] [place], [place] [address]345208-28-2024 13:20-0400 Systolic blood ijykicfk94 mm[Hg]DO Ana Pachecojalenjarrod Work Phone: [phone] [place], [place] [address]208-14-2024 14:15-0400 Body mass index (BMI) [Ratio]18.19 kg/g9HmrfxWhitney Ambriz MD MPH Work Phone: [facility]08-14-2024 14:15-0400 Body tooyeh87.08 Addison Ambriz MD MPH Work Phone: [facility]08-14-2024 14:15-0400 Diastolic blood rcffyfuq52 mm[Hg]Whitney Ambriz MD MPH Work Phone: [facility]08-14-2024 14:15-0400 Heart rate97 /Wolf Ambriz MD MPH Work Phone: [facility]08-14-2024 14:15-0400 Systolic blood quudhvbv631 mm[Hg]Whitney Ambriz MD MPH Work Phone: [facility]08-06-2024 15:21-0400 Body .6 Neri Braden MD Work Phone: [phone]08-06-2024 15:21-0400Body mass index (BMI) [Ratio]19.38 kg/i5LjejeBola Braden MD Work Phone: [phone]08-06-2024 15:21-0400Body temperature 98.2 [degF]Bola Braden MD Work Phone: [phone]08-06-2024 15:21-0400Body vawofv77.26 kgBola Braden MD Work Phone: [phone]08-06-2024 15:21-0400Diastolic blood irdwayey55 mm[Hg]Bola Braden MD Work Phone: [phone]08-06-2024 15:21-0400Heart rate65 /min Bola Braden MD Work Phone: [phone]08-06-2024 15:21-0400Systolic blood oykbveqk125 mm[Hg]Bola Braden MD Work Phone: [phone]07-16-2024 14:42-0400Body .6 cmWkelly Merida MD Work Phone: [facility]07-16-2024 14:42-0400 Body mass index (BMI) [Ratio]19.14 kg/p2QzwoulDane Merida MD Work Phone: [facility]07-16-2024 14:42-0400 Body ldtjku11.58 kgDane Merida MD Work Phone: [facility]07-16-2024 14:42-0400 Diastolic blood uzljpfkn26 mm[Hg]Dane Merida MD Work Phone: [facility]07-16-2024 14:42-0400 Heart rate77 /Francesca Merida MD Work Phone: [facility]07-16-2024 14:42-0400 Respiratory rate18 /Francesca Merida MD Work Phone: [facility]07-16-2024 14:42-0400 Systolic blood mm[Hg]Dane Merida MD Work Phone: [facility]06-20-2024 09:24-0400 Body .6 cmMckenzie Shepherd HEEL SHAPER-INSULATION WORKER INTERIOR SURFACE Work Phone: [facility]06-20-2024 09:24-0400Body mass index (BMI) [Ratio]19.53 kg/y0Ojdxizh Shepherd HEEL SHAPER-INSULATION WORKER INTERIOR SURFACE Work Phone: [facility]06-20-2024 09:24-0400Body dafrsn53.62 kgMckenzie Shepherd HEEL SHAPER-INSULATION WORKER INTERIOR SURFACE Work Phone: [facility]06-20-2024 09:24-0400Diastolic blood byqphlql82 mm[Hg]Mckenzie Shepherd HEEL SHAPER-INSULATION WORKER INTERIOR SURFACE Work Phone: [facility]06-20-2024 09:24-0400Heart rate 73 /minMckenzie Shepherd HEEL SHAPER-INSULATION WORKER INTERIOR SURFACE Work Phone: [facility]06-20-2024 09:24-0400Systolic blood cdeuolil467 mm[Hg]Mckenzie Mendozaoll HEEL SHAPER-INSULATION WORKER INTERIOR SURFACE Work Phone: [facility]05-15-2024 13:45-0400Body txbbom733.6 cmAriella Mccoy HEEL SHAPER.INSULATION WORKER INTERIOR SURFACE Work Phone: cSt. [facility] CampusPrtwhn83-05-5640 13:45-0400Body mass index (BMI) [Ratio]19.22 kg/b4PhwmwcuAriella Mccoy HEEL SHAPER.INSULATION WORKER INTERIOR SURFACE Work Phone: [place] Saenyl71-85-1849 13:45-0400Body temperature 98.01 [degF]Ariella Mccoy HEEL SHAPER.INSULATION WORKER INTERIOR SURFACE Work Phone: YSt. [facility], [facility] CampusXohvlw58-11-2368 13:45-0400Body rhmyrj36.8 kgAriella Mccoy HEEL SHAPER.INSULATION WORKER INTERIOR SURFACE Work Phone: TSt. [facility], [facility] CampusHcnhex60-80-2556 13:45-0400Diastolic blood mm[Hg]Ariella Mccoy HEEL SHAPER.INSULATION WORKER INTERIOR SURFACE Work Phone: CSt. [facility], [facility] CampusWfoxla65-06-2666 13:45-0400Heart rate90 /min Ariella Mccoy HEEL SHAPER.INSULATION WORKER INTERIOR SURFACE Work Phone: LSt. [facility], [facility] CampusTbhxnp34-39-3163 13:45-6870VtJ5% (BldA) [Mass fraction]99 %Ariella Mccoy HEEL SHAPER.INSULATION WORKER INTERIOR SURFACE Work Phone: QSt. [facility], [facility] CampusTikhhx93-98-9933 13:45-0400Systolic blood irchlfua293 mm[Hg]Ariella Mccoy HEEL SHAPER.INSULATION WORKER INTERIOR SURFACE Work Phone: JSt. [facility], [facility] CampusOvixyj71-05-5473 11:15-0400Body gocjcx540.56 cm[facility]05-09-2024 11:15-0400Body mass index (BMI) [Ratio]18.7 kg/z8JassbyafuAccess Hospital [facility]05-09-2024 11:15-0400Body owgsxw09.58 kg[facility]05-09-2024 11:15-0400Diastolic blood qneachsn53 mm[Hg][facility]05-09-2024 11:15-0400 Heart rate83 /[facility]05-09-2024 11:15-0400 Respiratory rate18 /[facility]05-09-2024 11:15-0400 SaO2% (BldA) [Mass fraction]98 %[facility]05-09-2024 11:15-0400Systolic blood vacrtklf188 mm[Hg][facility] 11-15-2023 14:44-0400Body rqjmyi032.6 cmPacc 1 Other Phone: [facility]04-25-2024 14:44-0400Body mass index (BMI) [Ratio]20.06 kg/m2Pacc 1 Other Phone: [place] [address]-25-2024 14:44-0400Body temperature 97.11 [degF]Pacc 1 Other Phone: [phone] [address]-25-2024 14:44-0400Body jzyjhz42 kg Pacc 1 Other Phone: [phone] [address]-25-2024 14:44-0400Diastolic blood tisckrif15 mm[Hg]Pacc 1 Other Phone: [phone] [address]-25-2024 14:44-0400Heart rate75 /minPacc 1 Other Phone: [phone] [address]-25-2024 14:44-0400Respiratory rate 18 /minPacc 1 Other Phone: [phone] [address]-25-2024 14:44-0658IlG4% (BldA) [Mass fraction]100 %Pacc 1 Other Phone: [phone] [address]-25-2024 14:44-0400Systolic blood aphfaapf529 mm[Hg]Pacc 1 Other Phone: [place] [address]-01-2024 14:44-0400Body axybmp520.6 cmAevan Rushing MD Work Phone: [facility]04-01-2024 14:44-0400Body .62 kgSedrick Rushing MD Work Phone: [place] [address]-01-2024 14:44-0400Diastolic blood ftthamyx53 mm[Hg]Sedrick Rushing MD Work Phone: [place] [address]-01-2024 14:44-0400Heart rate40 /min Sedrick Rushing MD Work Phone: [place] [address]-01-2024 14:44-0400Systolic blood exmvxpxi674 mm[Hg]Sedrick Rushing MD Work Phone: [facility]02-15-2024 14:00-0500Heart rate68 /min Isabelle Menon MD Work Phone: cSt[facility] [phone] 14:00-0500Respiratory rate 22 /minIsabelle Menon MD Work Phone: 1(206)632-[address] [place], [place] 2091202-15-2024 14:00-7939QwM4% (BldA) [Mass fraction]100 %Isabelle Menon MD Work Phone: 1(609)000-[address] [place], [place] 2091202-15-2024 13:45-0500Diastolic blood eentyekw64 mm[Hg]Isabelle Menon MD Work Phone: cSt[facility] CampusBmlfsr53-70-5018 13:45-0500Systolic blood mm[Hg]Isabelle Menon MD Work Phone: 1(870)900-[address] [place], [place] 2091202-15-2024 13:27-0500Body temperature 97.2 [degF]Isabelle Menon MD Work Phone: 1(230)250-[address] [place], [place] 2091211-15-2023 11:42-0500Body rlotyd16.26 kgIsabelle Menon MD Work Phone: cSt[facility] CampusPzajdn77-43-4906 11:42-0500Diastolic blood hrppzyme69 mm[Hg]Isabelle Menon MD Work Phone: 1(952)752-[address] [place], [place] 209[address]11-15-2023 11:42-0500Heart rate87 /min Isabelle Menon MD Work Phone: c[facility] CampusVdolhu08-09-6357 11:42-0500Systolic blood azquqnov833 mm[Hg]Isabelle Menon MD Work Phone: cSt[facility] [phone] 11:30-0400Body vfuthd716.56 cmAnalia Holliday Other [place] [employer] Other 11-02-2023 11:30-0400Body mass index (BMI) [Ratio] 20.48 kg/o2JkbyzydzAnalia Holliday Other [employer] Other 11-02-2023 11:30-0400Body bfmjmi68.11 kgAnalia Holliday Other [employer] Other 11-02-2023 11:30-0400Diastolic blood tqbsxqaf94 mm[Hg] Analia Holliday Other [employer] Other 11-02-2023 11:30-0400Respiratory rate18 /minAnalia Holliday Other [facility] Other 11-02-2023 11:30-7974OuZ9% (BldA) [Mass fraction]99 % Analia Holliday Other [place] [employer] Other 11-02-2023 11:30-0400Systolic blood ydoitfun648 mm[Hg] Analia Holliday Other [facility] Other 10-31-2023 11:10-0400Body hdrvhi255.6 cmDavid Hykes Jr., DO Work Phone: [facility]10-31-2023 11:10-0400Body fejion87.3 kgDavid Hykes Jr., DO Work Phone: [facility]07-18-2023 10:10-0400Body .6 cmDavid Hykes Jr., DO Work Phone: [facility]07-18-2023 10:10-0400Body ynhzkg32.26 kgDavid Hykes Jr., DO Work Phone: [facility]07-18-2023 10:10-0400Diastolic blood raxsiijs35 mm[Hg]Dara Aleksadi Mak, DO Work Phone: [facility]07-18-2023 10:10-0400Heart rate67 /min Dara Aleksadi Mak, DO Work Phone: [facility]07-18-2023 10:10-7381TsT9% (BldA) [Mass fraction]100 %Dara Butler , DO Work Phone: [facility]07-18-2023 10:10-0400Systolic blood fmnfwnaq832 mm[Hg]Dara Butler , DO Work Phone: [facility]05-03-2023 10:00-0400Body .56 cmRdariana Reyez Other [employer] Other 05-03-2023 10:00-0400Body mass index (BMI) [Ratio] 19.91 kg/m2Rygurmeet Scovanner Other [employer] Other 05-03-2023 10:00-0400Body htqjef57.62 kgRygurmeet Scovanner Other [employer] Other 05-03-2023 10:00-0400Diastolic blood aeiekboi04 mm[Hg] Silvano Scovanner Other [employer] Other 05-03-2023 10:00-0400Systolic blood mfocyuud842 mm[Hg] Silvano Scovanner Other [employer] Other 10-06-2022 14:30-0400Body .56 Varun Parikh Other [employer] Other 10-06-2022 14:30-0400Body mass index (BMI) [Ratio] 19.74 kg/y2OumcmwlJaya Parikh Other [employer] Other 10-06-2022 14:30-0400Body fugvdd68.16 kgJaya Parikh Other [place] [employer] Other 08-24-2022 15:29-0400Body qaupaz236.6 Komal Diallo MD Work Phone: [phone]08-24-2022 15:29-0400Body mass index (BMI) [Ratio]19.6 kg/m2Irena Diallo MD Work Phone: [phone]08-24-2022 15:29-0400Body zowbmf92.8 kgIrena Diallo MD Work Phone: [phone]08-24-2022 15:29-0400 Diastolic blood bhpmokts11 mm[Hg]Irena Diallo MD Work Phone: [phone]08-24-2022 15:29-0400Heart rate74 /minIrena Diallo MD Work Phone: [phone]08-24-2022 15:29-0400 Respiratory rate18 /minIrena Diallo MD Work Phone: [phone]08-24-2022 15:29-5014ImT8% (BldA) [Mass fraction]99 %Irena Diallo MD Work Phone: [phone]08-24-2022 15:29-0400Systolic blood vprgpmif071 mm[Hg]Irena Diallo MD Work Phone: [phone]03-08-2022 12:00-0500Body zmdehb913.56 cmCmaxim Parikh Other [facility]St[facility] [employer] Other 03-08-2022 12:00-0500Body mass index (BMI) [Ratio] 19.74 kg/l9YumyylgJaya Parikh Other [employer] Other 03-08-2022 12:00-0500Body obgbkt88.16 kgJaya Parikh Other [employer] Other 03-08-2022 12:00-0500Diastolic blood mm[Hg] Jaya Parikh Other [employer] Other 03-08-2022 12:00-0500Systolic blood frpocoly395 mm[Hg] Jaya Parikh Other [employer] Other 10-14-2021 10:30-0400Body ftgkso829.56 cmSjesus Negro Other [employer] Other 10-14-2021 10:30-0400Body mass index (BMI) [Ratio]20.6 kg/a1ZelokxjwnArlene Negro Other [employer] Other 10-14-2021 10:30-0400Body mpfdcexogiy21.1 [degF] Arlene Negro Other [employer] Other 10-14-2021 10:30-0400Body .43 kgStkelly Negro Other [employer] Other 10-14-2021 10:30-0400Respiratory rate18 /minStepjosue Negro Other [employer] Other 10-14-2021 10:30-1694VdR4% (BldA) [Mass fraction]97 % Arlene Sruthi Other [facility]St[facility] [employer] Other Encounters Encounter DateEncounter TypeCare ProviderFacilityStart: 04-18-2025 End: 54-76-9696Tlygyedtc Result EncounterCorey Heike DO Work Phone: noms External Department UnsolicitedStart: 04-18-2025 End: 01-15-1568Ydldronky Result EncounterCorey Heike DO Work Phone: noms External Department UnsolicitedStart: 03-24-2025 End: 53-51-5793Xbueak flowsheetCorey Heike DO Work Phone: noms Sg OBGYNStart: 03-24-2025 End: 45-12-1012Hmarho flowsheetCorey Heike DO Work Phone: noms Standard OBGYNStart: 03-24-2025 End: 44-07-0627Hiarnv outpatient visit 15 minutesCorey Heike DO Work Phone: noms Standard OBGYNComment on above:Encounter for infertility; PCOS (polycystic ovarian syndrome); Abnormal uterine bleeding (AUB)Start: 03-24-2025 End: 47-53-5589amyddteefqFKSQC FAZIONot AvailableStart: 11-12-2024 End: 25-01-6502bhxbowtgozYneqypmqrUC Health Work Phone: Start: 11-12-2024 End: 28-91-8445Ckoprkl encounter procedureFirsentara [facility] Work Phone: Start: 39-61-4435Nwu-patient / Non-visitNorthern [facility] Work Phone: Start: 46-98-8548Mmz-patient / Non-visitNorthern [facility] Hospital [facility] [employer] Work Phone: Start: 10-24-2024 End: 76-06-4780dnjbrtmmnzGdmjkprozSelect [facility] Work Phone: Start: 10-24-2024 End: 80-66-8873Lnnyfwy encounter procedureNorthern [facility] Hospital [facility] Work Phone: Start: 09-05-2024 End: 05-07-2662Bvnovh-up encounterDabean Butler DO Work Phone: GastroenterologyStart: 09-03-2024 End: 86-94-7209ojziqanwyrHGFOQ L HYKES JRFacility:[facility] Start: 09-03-2024 End: 94-02-8532Mlegsgferf hospital visit by physicianDara Butler DO Work Phone: [facility] SheffieldComment on above:Generalized abdominal pain [R10.84]Start: 08-21-2024 End: 17-37-3231hobxvcjhxdZaiaquxg Abraham MD Work Phone: Pain ManagementComment on above:Cancel procedureStart: 71-11-1614tgzcnjevvuCYGFRZAT [facility] Hospitaltart: 07-24-2024 End: 92-05-5255Qldzffwc ReferredAnalia Dennis APRN Work Phone: [facility] [place] Work Phone: Start: 07-24-2024 End: 02-63-5071hmavipgjqlEzdazcrt RohrbacherFacility:[facility] Centertart: 07-24-2024 End: 58-51-2094Dzcqjtn encounter procedureNorthern Regional Hospital [facility] GroupF[facility] Work Phone: Start: 07-15-2024 End: 22-56-5141Mgstiiwdu encounterNae Ibarra MD Work Phone: RheumatologyComment on above:ResultsStart: 07-15-2024 Non-patient / Non-visitNorthern [facility] Hospital [facility] Co Work Phone: Start: 07-15-2024 End: 23-00-4064cqwlgmlvnrGNFZEGMS TSAIFacility:[facility] HospitalStart: 07-15-2024 End: 88-73-2579Mazkght encounter procedureNae Ibarra MD Work Phone: RheumatologyComment on above:Chronic fatigue (Primary Dx); Vitamin B12 deficiency; Vitamin D deficiency; Generalized abdominal pain; Urticaria; Photosensitivity; Chronic bilateral low back pain without sciatica; Cervicalgia; Upper back pain; Long-term use of high-risk medicationStart: 03-35-7958Kpv-patient / Non-visit [facility] Work Phone: Start: 47-12-6066Kfz-patient / Non-visitNorthern [facility] Hospital [facility] Co Work Phone: Start: 13-14-8432Iqs-patient / Non-visitNorthern [facility] Hospital Physician [facility] Professional Co Work Phone: Start: 07-08-2024 End: 46-88-2095Trarflw encounter procedureNorthern Regional Hospital [facility] GroupFlower Hospital Work Phone: Start: 07-08-2024 End: 23-06-0505Bacucrwdl Result EncounterCorey Heike DO Work Phone: noms External Department UnsolicitedStart: 07-08-2024 End: 71-11-9539Vznhypipg Result EncounterCorey Heike DO Work Phone: noms External Department UnsolicitedStart: 07-03-2024 End: 33-92-3194Qieitl flowsheetCorey Heike DO Work Phone: noms BCP OBStart: 07-03-2024 End: 48-18-2956Pshmvb flowsheetCorey Heike DO Work Phone: noms BCP OBStart: 07-03-2024 End: 78-10-6979Ulydmlhta encounterSquinn Thompson MD Work Phone: Pain ManagementComment on above:AppointmentStart: 07-03-2024 End: 70-10-0980Lribop outpatient visit 15 minutesCorey Heike DO Work Phone: noms BCP OBComment on above:Follow-up visit after miscarriageStart: 07-03-2024 End: 44-97-4801aqejvzuzfvENKWP FAZIONot AvailableStart: 07-01-2024 End: 18-92-1862Gyeswrq encounter procedureElif Rich MD Work Phone: noms SWS DERMComment on above:Neoplasm of unspecified behavior of bone, soft tissue, and skin (Primary Dx)Start: 07-01-2024 End: 25-03-4900Jywevo flowsCarline Rich MD Work Phone: noms SWS DERMStart: 07-01-2024 End: 07-87-1715Lzaxre Becca Rich MD Work Phone: noms [facility] DERMStart: 07-01-2024 End: 62-72-2179eixkjkidpeWOAOZ A PETITTINot AvailableStart: 87-40-8809Dhu- patient / Non-visitNorthern [facility] Hospital [facility] GroupKind[facility] Work Phone: Start: 61-56-9579Hux-patient / Non-visitFirelands [facility] Work Phone: Start: 14-65-0436Faz-patient / Non-visitNorthern Regional Hospital [facility] GroupKind[facility] Co Work Phone: Start: 06-23-2024 End: 47-58-1023Ybiiwshnj encounterTho Huffman MD Work Phone: Internal MedicineComment on above:AppointmentStart: 05-14-2024 End: 59-05-2636Vqhobptep encounterTho Huffman MD Work Phone: Ambulatory SurgeryComment on above:Schedule Injection Start: 04-30-2024 End: 89-67-6774twcymcuhgrJYSJZQVD M KAPLEFacility:[facility] Start: 04-30-2024 End: 64-90-1966Lyouabh encounter procedurePaula Pretty MD Work Phone: pain ManagementComment on above:Right sided abdominal pain (Primary Dx); Neuralgia and neuritis; Celiac artery compression syndrome (HCC)Start: 04-24-2024 End: 52-07-8200Gvksxbnxs encounterIsabelle Menon MD Work Phone: GastroenterologyComment on above:Appointment (No need for OV with Dr. Menon)Start: 04-17-2024 End: 25-70-6754Zpeinxjowp hospital visit by physicianKeshawn External FilmEF RAD EXTERNAL FILM VIRTUALComment on above:ArrivedStart: 04-16-2024 End: 59-87-9212Eduvfaiird hospital visit by Ranjit Ambriz MD MPH Work Phone: [facility] CenterComment on above:Median arcuate ligament syndrome (CMS-HCC)Median arcuate ligament syndromeStart: 03-26-2024 End: 90-79-4302Djwrutk encounter procedurePaula Pretty MD Work Phone: pain ManagementComment on above:APPOINTMENT CANCELLED (Primary Dx)Start: 03-26-2024 End: 97-77-4628csfyppczajOGATIADD M KAPLEFacility:[facility] Start: 55-17-9966Dzqmzar encounter statusUC Medical Centertart: 03-19-2024 End: 01-30-0974qjugtuqywkMC Ana Bolton Work Phone: [facility] Work Phone: Start: 03-19-2024 End: 90-52-3553Nanukts encounter procedureDO Ana Bolton Work Phone: [facility] Work Phone: Start: 03-13-2024 End: 90-90-5851fglvctgdymIXSHDTAF M KAPLEFacility:[facility] Start: 03-12-2024 End: 75-47-1866lthjnbdzbxAogaw L Luke ., DO Work Phone: GastroenterologyStart: 03-12-2024 End: 91-51-5928Sparwt-up encounterDadeondreadela Ilene Butler DO Work Phone: GastroenterologyComment on above:Follow UpStart: 03-05-2024 End: 18-46-8286Ehutjl outpatient new 60 minutesWhitney Ambriz MD MPH Work Phone: uh [facility] HospitalComment on above: Epigastric pain (Primary Dx); Median arcuate ligament syndrome (CMS-HCC); Difficulty breathingStart: 02-26-2024 End: 88-06-7713Oezomza encounter Joceline Braden MD Work Phone: GastroenterologyComment on above:Epigastric pain (Primary Dx)Start: 02-26-2024 End: 16-60-8023rufrjliygcPGIGC K STEVENSFacility:[facility] HospitalStart: 63-77-3132ogmrlhdkqfPQCZR L HYKESFacility:[facility] HospitalStart: 02-11-2024 End: 53-49-7228Vjagynszji hospital visit by physicianLavonne/[facility] ([facility]) Work Phone: RadiologyComment on above:Upper abdominal pain [R10.10]Start: 02-05-2024 End: 80-14-0269Rywpnf outpatient gonzález 60 minutesDane Merida MD Work Phone: uh [facility] Physician PavilionComment on above:Median arcuate ligament syndrome (CMS-HCC) (Primary Dx)Start: 25-52-9178ujqxolehhutawanda BUTLERFacility:[facility] HospitalStart: 01-30-2024 End: 28-51-3093Rgbeafufzx hospital visit by physicianDaryl Imaging [facility] 2 Work Phone: [facility] HOSPComment on above:Upper abdominal pain [R10.10]Start: 56-50-2091Jdwueeaeu encounterGeorge [facility] RADIO [facility]IRVIEW HOSPComment on above:Radiology NMStart: 31-25-8768yxovtmmvpqtawanda Menon MD Work Phone: GastroenterologyComment on above:EUSStart: 01-10-2024 End: 00-90-0840Zwbyzt OnlyNot In System Ref ProvProMedica Physicians General SurgeryStart: 01-10-2024 End: 72-57-1278Ncqgge follow up visit related to original Melinda Shepherd HEEL SHAPER-INSULATION WORKER INTERIOR SURFACE Work Phone: [facility] Physicians General SurgeryComment on above: Status post laparoscopic appendectomy (Primary Dx)Start: 01-01-2024 End: 21-36-6188xcxjlrulatAdwrooz E [facility] Work Phone: Start: 01-01-2024 End: 00-24-9915Truoahjs ReferredDO Ana Bolton Work Phone: [facility]-LAB Path Spec Standard HospStart: 12-28-2023 End: 38-21-7148kfuzrjjkrtGSVBA L HYADI JRFacility:[facility] Start: 12-28-2023 End: 79-01-0594Pqgndzx encounter procedureDavid L Hykes DO Work Phone: GastroenterologyComment on above:Upper abdominal pain (Primary Dx); Dyspepsia and disorder of function of stomach; DyspepsiaStart: 12-27-2023 End: 95-32-4711kekpkngrwzIBYPV L HYKES JRFacility:[facility] Start: 41-44-5543Rja-patient / Non-visitDO Ana Bolton Work Phone: [facility] GroupKind[facility] Co Work Phone: Start: 62-22-3890lfmatvtfktQrkrh L Hykes DO Work Phone: GastroenterologyComment on above:PainStart: 12-13-2023 RefillDavid L Hykes DO Work Phone: FaMayo Clinic Health System– NorthlandComment on above: Refill RequestStart: 12-05-2023 End: 46-48-6778nycxmjczhxBXVGFEA LLOSASHAFacility:[facility] HospitalStart: 12-05-2023 End: 73-73-8648Kjsbrtl encounter procedureAriella Jonesyd HEEL SHAPER.INSULATION WORKER INTERIOR SURFACE Work Phone: General SurgeryComment on above:S/P gastrointestinal surgery, follow-up exam (Primary Dx); S/P laparoscopic cholecystectomyStart: 11-29-2023 End: 10-17-6010orygfyseaiQentcnxatSelect Medical [facility] Work Phone: Start: 11-29-2023 End: 94-26-1531Nshphnk encounter procedureNorthern Regional Hospital Physician GroupSt. [facility] Center Work Phone: Start: 11-21-2023 End: 07-24-2448qbmswzhhlcVHJLFAYU M KAPLEFacility:[facility] HospitalStart: 39-09-2933Rte-patient / Non-visitNorthern Regional Hospital [facility] Co Work Phone: Start: 11-15-2023 End: 45-24-9742Lqblmhnti to establishmentPacc [address] Other Phone: Pre AnesthesiaStart: 11-15-2023 End: 86-90-2527Bvamook encounter procedurePacc Av [address] Other Phone: Pre AnesthesiaComment on above:Pre-op examination (Primary Dx); Palpitations; Organic anxiety syndromeStart: 11-15-2023 End: 46-02-7378Bbkpiqedgxwhn examination donePacc [address] Other Phone: [facility] Work Phone: Start: 11-15-2023 End: 07-26-6219xjanoykipjJUVUDICKang Mansfieldcility:[facility] Hospitaltart: 32-68-4577Xluricfor for other preprocedural examinationConnecticut Children's Medical Center Start: 03-47-3384Wdwtpuiss encounterBrianna M Armbrecht PA-C Work Phone: Pre AnesthesiaComment on above:Pre-Op ExamStart: 11-07-2023 End: 01-20-2341gwtmqmjkfhZALNYQWG M KAPLEFacility:[facility] Start: 28-08-0270Kydbomivu encounterSedrick Rushing MD Work Phone: CardiologyComment on above:Patient Question (PVCs and Frequent ED visits. )Start: 96-66-7198Cmuhrvgeh encounterSedrick Rushing MD Work Phone: CardiologyComment on above:Palpitations; ED pt update Start: 16-18-4615Djfnyldns encounterSeema Davis MD Work Phone: General SurgeryComment on above:Cardiac Clearance Start: 10-22-2023 End: 23-25-4077tcpegwbnvrRISQXE C SMITHFacility:[facility] HospitalStart: 10-22-2023 End: 17-73-7487Jksrhbv encounter procedureSedrick Rushing MD Work Phone: CardiologyComment on above:Palpitations (Primary Dx); Other supraventricular tachycardia (HCC)Start: 10-19-2023 End: 70-24-7799ryskqawjbrSMPJWP C SMITHFacility:[facility] HospitalStart: 29-14-8777Hqwzdmoye encounterIsabelle Menon MD Work Phone: GastroenterologyComment on above:Patient UpdateStart: 27-51-5721Mzpivyuvc encounterIsabelle Menon MD Work Phone: FV Provider AdultStart: 69-21-1543mwknwxuixvADFXAPOV M KAPLEFacility:[facility] HospitalStart: 09-06-2023 End: 32-25-7929Ybqfcwmyjy hospital visit by physicianIsabelle Menon MD Work Phone: FaC[facility] - ENDOComment on above: Chronic recurrent pancreatitis (HCC) [K86.1]Start: 16-58-0191Qagxnuquc encounter [employer] Procedure 15RadiologyComment on above:ScansStart: 06-11-2023 ambulatoryIsabelle Menon MD Work Phone: GastroenterologyComment on above:EUSStart: 06-06-2023 End: 71-31-8128Hovwjti encounter procedureIsabelle Menon MD Work Phone: GastroenterologyComment on above:RUQ pain (Primary Dx); History of pancreatitis; Nausea; Diarrhea, unspecified type; History of Clostridium difficile infectionStart: 06-01-2023 End: 30-16-1327eptnlwidbzUktczmcq Kaple Other [employer] Other Start: 21-97-4640Poncpyefx encounterAnalia Ye Primary CareStart: 05-30-2023 End: 04-57-1735kpkydgivswWRJ Jennifer Kaple Work Phone: [facility] Work Phone: Start: 05-30-2023 End: 39-18-3033Ulgqcfs encounter procedureDNClaudette Holliday Work Phone: [facility] Hospitaltart: 05-24-2023 End: 98-43-8296yaipfdzxizPjsexpln Kap[employer] Other [employer] Other Start: 74-82-0420Vsxzyaxil for general adult medical examination without abnormal findingsAnalia PedrazaG [facility] [place] Start: 39-25-6683Cfkiyid preventive medicine new pt age 18-39yrsAnalia ELIAS [facility] Medicine [facility] NetworkyStart: 05-22-2023 End: 80-93-0924Wcbcfoa encounter procedureDabean Butler DO Work Phone: GastgroenterologyComment on above:Chronic pancreatitis, unspecified pancreatitis type (HCC) (Primary Dx); Generalized abdominal pain; Irritable bowel syndrome with diarrhea; History of Clostridioides difficile colitisStart: 05-16-2023 End: 28-28-4675soergqiiftNbatremg Provider Other [email or web address] Other Start: 57-71-2951Ecbalgklg encounterOrdering Provider [facility] Medicine [place]kyStart: 71-92-8200Niewytuks encounterDavid L Hykes DO Work Phone: GastroenterologyComment on above:ResultsStart: 60-37-7475Qzmtqiloz encounterDavid L Hykes DO Work Phone: GastroenterologyComment on above:ResultsStart: 56-64-0022uaoazvijpuCCEMT L HYKESFacility:[facility] Hospitaltart: 04-13-2023 End: 46-10-2315Gpyytpjyhr hospital visit by physicianEj Cerrato (I-Stat/1.5t) Work Phone: RadiologyComment on above:Chronic recurrent pancreatitis (HCC) [K86.1]Start: 85-24-4450Xdhghaonk encounterMarie Moise ([place]) GeorgeRadiologyComment on above:APPT REMINDER (APPT REMINDER CALL, LEFT MESSAGE REGARDING DIRECTIONS TO OFFICE AND # IN NEED TO CANCEL)Start: 03-27-2023 End: 62-42-0904bfpgeirvsoHyrb [employer] Other [employer] Other Start: 00-02-8982Pphlvxujp encounterRyan ScovannerFPG GastroenterologyStart: 03-23-2023 End: 84-18-5533ospiuouqmmSuuy [employer] Other [employer] Other Start: 19-27-1524Kqcnhvhlt encounterRyan ScovannerFPG GastroenterologyComment on above:ResultsStart: 03-22-2023 End: 83-09-0757rzhaadwttlEcib [employer]anner Other [employer] Other Start: 14-15-0619Szdxvaikc encounterNae Ibarra MD Work Phone: RheumatologyComment on above:ResultsStart: 03-21-2023 Telephone encounterDavid L Hykes DO Work Phone: GastroenterologyComment on above:ResultsStart: 03-20-2023 End: 42-40-0048uspksuzunsEsal [employer] Other [email or web address] Other Start: 52-03-6737Encymmmlk encounterRyan ScrossynerFPG GastroenterologyStart: 73-09-4118bkblpvtwplAuveg L Hykes DO Work Phone: GastgroenterologyComment on above:PancreasStart: 80-36-6405fglmwpmsffOSIDH L HYKESFacility:[facility] HospitalStart: 02-06-2023 End: 74-06-6267Hftmoca encounter procedureDavid L Hykes DO Work Phone: GastgroenterologyComment on above:Chronic pancreatitis, unspecified pancreatitis type (HCC) (Primary Dx); Generalized abdominal pain; Intestinal malabsorption, unspecified typeStart: 02-90-2341twsqtikqtpLrkgczarpts AbdelazizFacility:[facility] Centertart: 87-21-3436nvmkyokigx Nae Ibarra MD Work Phone: RheumatologyComment on above:updateStart: 12-01-2022 End: 05-95-9607goblkpsejrAM DOCTOR MISCFacility:B9Yoaxf: 11-22-2022 End: 40-94-8575nnktjzovusRjlp Scovanner Other [email or web address] Other Start: 05-46-0113Lxrzfb outpatient new 30 minutesRyan ScovannerFPG GastroenterologyStart: 11-08-2022 End: 19-87-5591zdfbrsokafRlaokdc Ditty Other [employer] Other Start: 05-81-7229Pmylfpdmo encounterCameron DittyFPG GastroenterologyStart: 11-04-2022 End: 10-84-2567ctqgemdbdfTWKWXWP DITTYFacility:G8Fkfgk: 11-03-2022 End: 12-88-9597akwkmukkwyXS DOCTOR MISCFacility:N0Xnuah: 10-31-2022 End: 76-41-3659wvrpyfpfrnQK DOCTOR MISCFacility:X6Hxxlm: 10-23-2022 End: 53-44-8343qlmvrcfalhFH DOCTOR MISCFacility:R6Pougq: 10-20-2022 End: 01-15-4648zhqnbvpodiCC DOCTOR MISCFacility:I9Bawid: 10-19-2022 End: 42-20-8187yhkqwivcvqGY EDWARD HEMEYER .Facility:D9Mockc: 10-18-2022 End: 99-30-5503gvauvvxehgFQ EDWARD HEMEYER .Facility:G5Wsroa: 10-08-2022 End: 47-51-4584ohlynpurqzSQ EDWARD HEMEYER .Facility:L9Opdtp: 10-05-2022 End: 18-64-8134ufqerdofzdJW EDWARD HEMEYER .Facility:L4Kkssy: 10-02-2022 End: 49-78-0379knbvsjtfzsFC EDWARD HEMEYER .Facility:V1Gvoze: 09-28-2022 End: 56-47-7796bvjxzxaphdVS DOCTOR MISCFacility:Y9Gfqpi: 09-26-2022 End: 63-97-7757kkkoqgxneaWS EDWARD HEMEYER .Facility:M6Bsvwg: 09-22-2022 End: 42-36-3983lxcyvizwkqXS EDWARD HEMEYER .Facility:Y6Lgfcj: 09-12-2022 End: 75-14-6470hgvrrvnxtfJL DOCTOR MISCFacility:M7Wmbmr: 08-30-2022 End: 92-73-7141qftlksmfrhKC DOCTOR MISCFacility:S3Yxfrf: 08-24-2022 End: 21-43-0271mrlscokojfPG EDWARD HEMEYER .Facility:B9Yslus: 08-22-2022 End: 65-29-3350hmmenpvymqJC EDWARD HEMEYER .Facility:Z5Vyhot: 08-22-2022 End: 68-81-7364gcghmlhtrkAJ EDWARD HEMEYER .Facility:P6Mjjoq: 08-21-2022 End: 07-11-8506dvjzkjtnsyHW EDWARD HEMEYER .Facility:Q6Txlge: 08-14-2022 End: 83-55-7852dwvfmiathtQY JEREMIAH HEIKE .Facility:G0Xytwo: 07-28-2022 End: 25-60-5494rxyckdmwfoDordudy Ditty Other [employer] Other Start: 63-42-8955Dhdjmdlih encounterCameron DittyFPG GastroenterologyStart: 07-27-2022 End: 16-95-4086yndgszkkohOK EDWARD HEMEYER .Facility:D9Xxkhp: 07-13-2022 End: 65-16-3352owpkpzsalqHZ EDWARD HEMEYER .Facility:P9Oasms: 05-11-2022 End: 45-19-0879qbmwnjyiggJG DOCTOR MISCFacility:Q0Mgmrh: 05-04-2022 End: 96-33-4154indpivhdsfLD DOCTOR MISCFacility:W8Pvfkg: 05-01-2022 End: 10-18-1267qdiodjyuzaNC DOCTOR MISCFacility:G9Jrtlo: 04-27-2022 End: 27-12-6137htviujtmnlUavtifn Ditty Other [place] [employer] Other Start: 72-15-8416Qfrapnn encounter procedureCameron DittyFPG GastroenterologyStart: 04-17-2022 End: 94-90-5542ugtixymexkLK EDWARD HEMEYER .Facility:H1Bqmzo: 03-17-2022 End: 90-35-5461pipmfzqvahMQ DOCTOR MISCFacility:V8Aaudt: 79-04-2802bgbulcggwoPYE PETROVAFacility:[facility] CENTERtart: 03-15-2022 End: 09-07-4479Habtgbjoyce [place] [address] My Diallo MD Work Phone: General and Gastrointestinal Surgery Outpatient Care [facility] on above:Diarrhea, unspecified type (Primary Dx)Start: 02-25-2022 End: 54-85-7921pddkmifzwoFZWNRPB HOYFacility:Q3Ntdns: 02-01-2022 End: 31-57-5760ybumiuzmdfXS DOCTOR MISCFacility:Y8Zihyz: 01-19-2022 End: 37-98-6250ydtmtueibjKoebvbn Ditty Other [email or web address] Other Start: 11-07-2370Pwwgbnrma encounterCameron DittyFPG GastroenterologyStart: 01-14-2022 End: 94-40-9453sbsjsqvztoBVFYTEH HOYFacility:Y2Kfyep: 96-83-4904tlmleevsbo REFERRED SELFFacility:[facility] MEXICOtart: 10-27-2021 End: 98-84-7185lirxzurrzvCgzunia Ditty Other [email or web address] Other Start: 03-63-7638Krqbavuix encounterCameron DittyFPG GastroenterologyStart: 10-17-2021 End: 19-98-2275cspsklujdoYhthvuh Ditty Other [email or web address] Other Start: 97-99-4231Lykcoszoo encounterCameron DittyFPG GastroenterologyStart: 42-66-4920snjumatajqXYZ PETROVAFacility:[facility] CENTERtart: 10-06-2021 End: 63-75-7931ugqugymeqfDdedejn Ditty Other [employer] Other Start: 41-36-7642Qwsscrufv encounterCameron DittyFPG GastroenterologyStart: 09-30-2021 End: 12-16-0849jtwmdxpzjcWxpjolo Ditty Other [employer] Other Start: 88-93-0714Xghwytfpb encounterCamerojovana ParikhFPG GastroenterologyStart: 09-27-2021 End: 21-62-6530fdfzyvxuddOnruent Bretty Other [employer] Other Start: 05-14-0976MZJL visit new patientCameron Kati FPG GastroenterologyStart: 73-49-2121Hssmpu outpatient visit 15 minutesStephanie SruthiFPG Urgent Care ClydeStart: 12-02-2020 End: 30-55-6296Fqprpdgdit hospital visit by physicianCt [facility] Radiology Ct ScanComment on above:Family history of ischemic heart disease and other diseases of the circulatory system [Z82.49] Procedures DateProcedureProcedure DetailPerforming ClinicianStart: 53-77-3762XOF FOLLICLE STIMULATING HORMONECorey Heike DO Work Phone: Start: 01-93-6948LXB LUTEINIZING HORMONECorey Heike DO Work Phone: Start: 02-62-4021LQJ THYROXINE (T4) FREECorey Heike DO Work Phone: Start: 39-67-9735OSW HEMOGLOBIN S3JWiwuy Heike DO Work Phone: Start: 63-28-2250Ndibszjldyj flx dx w/collj spec when pfrmdDavid L Hykes DO Work Phone: Start: 15-58-0827UWW PREG QUANT HCGCorey Heike DO Work Phone: Start: 45-84-8062ZUQP / NAIL BIOPSYEmlisset Rich MD Work Phone: Start: 04-17-2024 End: 19-55-4673Qxbvv Interpretation of outside studyWatauga Medical Center Radiology Contrast ProviderStart: 71-69-2039Hiigkdgusntovpbdawwhdbpner transoral diagnosticWhitney Ambriz MD MPH Work Phone: Start: 11-45-2866Utztp iv surg pathology gross&microscopic examWhitney Ambriz MD MPH Work Phone: Start: 73-29-6409Fxaic test visual color cmprsn Lauri Batista MD Work Phone: Start: 40-45-0804ILPJF OXIMETRY, Rashid Batista MD Work Phone: [phone]: 95-79-4574LXWBX OXIMETRY, Irwin Batista MD Work Phone: [phone]: 32-03-3417ADKFZ MARK-TATIANA CONTAINER PERFORMABLEDadeondreadela Ilene Butler DO Work Phone: Start: 46-86-4249YTDBV ECOFIX CONTAINER PERFORMABLE Dara Butler DO Work Phone: [phone]: 52-55-9390Tye agent det nucleic acid clostridium amp probeDavid Ilene Butler DO Work Phone: [phone]: 64-87-6083ZSA EXTRA TUBESDavid Ilene Butler DO Work Phone: [phone]: 26-17-6276GH UPPER GI SINGLE CONTRASTDadeondred Ilene Butler DO Work Phone: Start: 59-63-1919Vtbrlxf emptying imaging studyDadeondreadela Ilene Butler DO Work Phone: [phone]: 45-27-2249Qtldb i surg pathology gross examination onlyNot In System Ref ProvStart: 24-63-3338Tetlfgnpaqw rig transoral hypopharynx crv Nicole Menon MD Work Phone: start: 91-16-4512Kvg abdomen w/o & w/contrast material Dara Ilene Finkadi DO Work Phone: Start: 91-94-7242Dl angiography head w/contrast/noncontrastBarbronit Naqvi DO Work Phone: Start: 74-25-1856Id angiography neck w/contrast/noncontrastBarbara Donya DO Work Phone: History of cholecystectomyS/P laparoscopic cholecystectomyAudreymissy Mccoy INSULATION WORKER INTERIOR SURFACE Work Phone: Plan of Treatment DateCare ActivityDetailAuthorStart: 51-30-9896Mzkzbc Vaccines (1 of 2)Zoster Vaccines (1 of 2)[facility]: 07-21-2025 End: 63-04-6212Jbepbog encounter /30/2025 7:00 AM EST Office Visit Rheumatology [address] [facility] [place] [address] Nae Ibarra MD [address] [facility] [place] [address] 1 year follow upRheumatologyComment on above:1 year follow up Start: 03-24-2025 End: 49-82-2946Kaoqjgk encounter iiesgqsbc01/02/2025 1:50 PM EDT Office Visit [facility] [place] [facility] [address] [address] Jeremiah Burroughs DO [address] [place], [place] [address] ArrivedNOMS Sg OBGYNComment on above:ArrivedStart: 65-32-4704ZDTOT-19 Vaccine ( season)COVID-19 Vaccine ( season)[facility]: 03-23-2025 Influenza vaccinationInfluenza Vaccine (#1)[facility] HealthcareStart: 02-06-2025 End: 45-87-5139Hpjsfrf encounter foqxdfrea75/18/2025 9:00 AM EDT Office Visit Gastroenterology [address] [place] [address] Dara Butler Jr., DO [address] [place] [address] Stomach pain/diarrheaGastroenterology Comment on above:Stomach pain/diarrheaStart: 68-56-0234Nbgpwc Adult Physical Yearly Adult PhysicalSt. Rita's HospitalStart: 90-68-5812Ydzym BMI ScreeningAdult BMI ScreeningWadsworth-Rittman Hospital SystemStart: 86-97-4304Qoekgeu ScreeningTobacco ScreeningProDiley Ridge Medical Center SystemStart: 01-09-2025 End: 85-56-0133Qplgkfz encounter /20/2025 9:00 AM EDT Office Visit Gastroenterology [address] [place] [address] Dara Butler Jr., DO [address] [phone] Stomach pain/diarrheaGastroenterology Comment on above:Stomach pain/diarrheaStart: 09-17-2024 End: 65-13-7458Thufslf encounter fpshmjoaq23/26/2025 12:30 PM EST Appointment Ambulatory Surgery [address] [place] [address] [place] [address] [place] [address] Ambulatory SurgeryStart: 08-27-2024 End: 98-79-1202Zvyxdlnsy to same day surgery dgekvk9208/27/2024 8:55 AM EST - 08/27/2024 9:32 AM EST Surgery Procedures [address] [place] [address] Tho Huffman MD [address] [facility] [place] [address] BLOCK CELIAC PLEXUS WITH C-ARMProcedures Comment on above:BLOCK CELIAC PLEXUS WITH C-ARMStart: 08-27-2024 End: 91-04-2015Ywys anes celiac plexus w/wo radiologic monitrngBLOCK CELIAC PLEXUS WITH C-ARM Right sided abdominal pain Celiac artery compression syndrome (HCC) Neuralgia and neuritis 08/27/2024 8:55 AM [facility]: 34-36-1342Xhkwcjyuad hospital visit by dxypjgiyq91/05/2025 8:55 AM [facility] Hospital Encounter Procedures [address] [facility] [place] [place] [address] Tho Huffman MD [address] [facility] [place] [address] Right sided abdominal pain [R10.9], Celiac artery compression syndrome (HCC) [I77.4], Neuralgiaand neuritis [M79.2]ProceduresComment on above:Right sided abdominal pain [R10.9], Celiac artery compression syndrome (HCC) [I77.4], Neuralgia andneuritis [M79.2]Start: 08-18-2024 End: 14-24-3449Qxdnbwm encounter czeffwvjc15/27/2025 1:40 PM EST Office Visit Rheumatology [address] [facility] [address] [facility] [place] [address] Nae Ibarra MD [address] [facility] [place] [address] for fatigue fu OV.RheumatologyComment on above:for fatigue fu OV.Start: 84-38-8972Yqctalua identified in Urine by CultureUrine Culture [facility] Medical Centertart: 11-10-3999Gtqnf cultureUC Medical Centertart: 07-15-2024 End: 307609-rhnxvdivzuxkkg D3 [Mass/volume] in Serum or PlasmaWright-Patterson Medical Center Work Phone: Comment on above:Expected: 07/15/2024 (Approximate), Expires: 10/14/2024Start: 07-04-2024 End: 36-75-9353Oivjhohmg to same day surgery rqxmhq8807/04/2024 7:30 AM EST - 07/04/2024 8:08 AM [facility] Surgery Ambulatory Surgery [address] [facility] [place] [address] Tho Huffman MD [address] [facility] [place] [address] BLOCK CELIAC PLEXUS WITH C-ARMAmbulatory SurgeryComment on above:BLOCK CELIAC PLEXUS WITH C-ARM Start: 07-04-2024 End: 19-06-4352Sozf anes celiac plexus w/wo radiologic monitrngBLOCK CELIAC PLEXUS WITH C-ARM Right sided abdominal pain Celiac artery compression syndrome (HCC) Neuralgia and neuritis 07/04/2024 7:30 AM [facility]AINStart: 15-79-0048Yspgebrcat hospital visit by oexejupfx98/13/2024 7:30 AM [facility] Hospital Encounter Ambulatory Surgery [address] [facility] [address] [facility] [place] [address] Tho Huffman MD [address] [facility], [place] [id number] Right sided abdominal pain [R10.9], Celiac artery compression syndrome (HCC)[I77.4], Neuralgia and neuritis [M79.2] Ambulatory SurgeryComment on above:Right sided abdominal pain [R10.9], Celiac artery compression syndrome (HCC) [I77.4], Neuralgia andneuritis [M79.2]Start: 07-03-2024 End: 92-86-9902Awyebvu encounter procedureNOMS BCP OBComment on above:Arrived Start: 07-01-2024 End: 05-97-0229Fkjehib encounter ckcqgokzl14/10/2024 2:05 PM EST Office Visit [facility] [address] [place] [address] Elif Rich MD [address] [place] [address] ArrivedNOMS SWS DERMComment on above:ArrivedStart: 06-30-2024 End: 65-43-7392Wovbabl encounter ipiurlsow87/09/2024 10:30 AM EST Office Visit Pain Management [address] [place] [address] Paula Pretty MD [address] [place] [address] follow upPain ManagementComment on above: follow upStart: 06-13-2024 End: 72-10-5421Uhwtoxa encounter jiatvvvng82/22/2024 1:20 PM EST Office Visit Gastroenterology [address] [facility] [place] [address] Dara Butler Jr., DO [address] [facility] [place] [address] JN -SOONER APPT FOR FOLLOW UP GastroenterologyComment on above:JN -SOONER APPT FOR FOLLOW UPStart: 05-07-2024 End: 68-03-5846Xhrcskq encounter noepsgldb46/16/2024 11:45 AM EDT Office Visit Gastroenterology [address] [place] [address] [place] [address] [place] [address] F/U OVGastroenterologyComment on above:F/U OVStart: 04-30-2024 End: 25-98-0778Mnvckon encounter procedurePain ManagementComment on above:Dr [place] claudio referralStart: 04-16-2024 End: 74-50-5674Dwzxfvt encounter whqppslpy45/25/2024 9:00 AM EDT Appointment [facility] [address] [place] [address] Whitney Ambriz MD MPH [address] [facility] [place], [place] [address] [facility] Hospitaltart: 03-26-2024 End: 94-15-2278Gynlhmk encounter utdrhalch64/04/2024 11:00 AM EDT Office Visit Pain Management [address] [phone] Paula Pretty MD [address] [place] [address] [place] [address] Dr [place] claudio referralPain Management Comment on above:Dr [place] claudio referralStart: 16-26-0402Nboax-19 Vaccine ( season)Covid-19 Vaccine ()[facility] ClinicStart: 11-43-0449Ekrmv-19 Vaccine ()Covid-19 Vaccine ()[facility] ClinicStart: 39-97-0793Uszkerldi vaccinationUniversity Hospitals Par[facility] Start: 03-18-2024 End: 51-43-1082Pnitmai encounter pmesrtquk26/27/2024 1:00 PM EDT Office Visit Gastroenterology [address] [address] Bola Braden MD [address] [place] [address] Pancreatitis second opinionGastroenterologyComment on above: Pancreatitis second opinionStart: 03-14-2024 End: 02-64-8450Ucxvvxm encounter cankblcwq28/23/2024 10:00 AM EDT Office Visit Gastroenterology [address] [place], [place] [phone] Dara Butler Jr., DO [address] [place] [address] follow upoGastroenterologyComment on above:follow upoStart: 02-11-2024 End: 86-17-5703Rayfvmc encounter avgnivjqv27/22/2024 9:30 AM EDT Appointment Radiology [address] [place] [address] : XR UPPER GI SINGLE CONTRAST RadiologyComment on above:: XR UPPER GI SINGLE CONTRASTStart: 02-01-2024 End: 44-10-6011Exwetfy encounter /12/2024 3:00 PM EDT Office Visit Gastroenterology [address] [place] [address] Dara Butler Jr., DO [address] [place] [address] JN -SOONER APPT FOR FOLLOW UP GastroenterologyComment on above:JN -SOONER APPT FOR FOLLOW UPStart: 01-30-2024 End: 05-57-6312Jlzgqrn encounter phduncfww31/10/2024 8:30 AM EDT Appointment [facility] [address] [place] [address] Gastric Emptying Study Weight 115 / Patient not Diabetic / Order in EPIC // DX: Upper abdominal pain [R10.10][facility] HOSPComment on above:Gastric Emptying Study Weight 115 / Patient not Diabetic / Order in EPIC // DX: Upper abdominal pain [R10.10]Start: 01-09-2024 End: 42-52-7954Krhvngo encounter chkwosqsq57/19/2024 8:30 AM EDT Appointment [facility] [address] [facility] [place] [address] Weight 115 / Patient not Diabetic / Order in EPIC // DX: Upper abdominal pain [R10.10][facility] HOSPComment on above:Weight 115 / Patient not Diabetic / Order in EPIC // DX: Upper abdominal pain [R10.10]Start: 12-28-2023 End: 70-43-5456Veffhqj encounter sxfxvnorb14/07/2024 3:00 PM EDT Office Visit Gastroenterology [address] [place] [address] Dara Butler Jr., [address] [place] [address] abdominal pain- add per GastroenterologyComment on above:abdominal pain- add per JNStart: 12-27-2023 End: 31-11-9265siincdowzu58/06/2024 10:00 AM EDT Results Only [facility] [address] [place] [address] [place] [address] NplpqAscension [facility] LaboratoryStart: 12-26-2023 End: 59-84-1098Bswqurw [Enzymatic activity/volume] in Serum or PlasmaAMYLASE Lab Routine Generalized abdominal pain History of acute pancreatitis Expected: 12/26/2023, Expires: 03/26/2024leveland ClinicComment on above:Expected: 12/26/2023, Expires: 03/26/2024Start: 12-26-2023 End: 03-26-2024 reactive protein [Mass/volume] in Serum or PlasmaC-REACTIVE PROTEIN Lab Routine Generalized abdominal pain History of acute pancreatitis Expected: 12/26/2023, Expires: 03/26/2024leveland ClinicComment on above: Expected: 12/26/2023, Expires: 03/26/2024Start: 12-26-2023 End: 55-42-9043OZJ W Auto Differential panel - BloodCOMPLETE BLOOD COUNT AND DIFFERENTIAL Lab Routine Generalized abdominal pain History of acute pancre atitis Expected: 12/26/2023, Expires: 03/26/2024leveland ClinicComment on above:Expected: 12/26/2023, Expires: 03/26/2024Start: 12-26-2023 End: 04-86-4872Ghrdfrqehukhn metabolic 2000 panel - Serum or PlasmaCOMPREHENSIVE METABOLIC PANEL Lab Routine Generalized abdominal pain History of acute pancreatitis Expected: 12/26/2023, Expires: 03/26/2024[facility] Work Phone: Comment on above:Expected: 12/26/2023, Expires: 03/26/2024Start: 12-26-2023 End: 20-92-8435Fiwjfgrlwuq sedimentation rateSEDIMENTATION RATE, WESTERGREN Lab Routine Generalized abdominal pain History of acute pancreatitisExpected: 12/26/2023, Expires: 03/26/2024leveland ClinicComment on above:Expected: 12/26/2023, Expires: 03/26/2024Start: 12-26-2023 End: 20-38-0201Vznrby [Enzymatic activity/volume] in Serum or PlasmaLIPASE Lab Routine Generalized abdominal pain History of acute pancreatitis Expected: 12/26/2023, Expires: 03/26/2024leveland ClinicComment on above:Expected: 12/26/2023, Expires: 03/26/2024Start: 12-10-2023 End: 40-30-9039Pwysyxv encounter lsekiglol65/20/2024 12:20 PM EDT Office Visit Rheumatology [address] [facility] [address] Nae Ibarra MD [address] [facility] [place] [address] for fatigue fu OV.RheumatologyComment on above:for fatigue fu OV.Start: 11-21-2023 End: 35-09-6394Wqdhixude to same day surgery bkpcfs1511/21/2023 3:15 PM EDT - 11/21/2023 5:45 PM EDT Surgery [facility] Operating Room [address] [place], [place] [address] [place] [address] [place] [id number] LAPAROSCOPIC CHOLECYSTECTOMYFaChelsea Naval Hospital Operating RoomComment on above:LAPAROSCOPIC CHOLECYSTECTOMYStart: 11-21-2023 End: 93-28-2259Qgpfqwvnrsv surg cholecystectomyLAPAROSCOPIC CHOLECYSTECTOMY Cholecystitis 11/21/2023 3:15 PM EDTFV ORStart: 75-65-0254Fkpwdygzdp hospital visit by elohqlanz61/01/2024 3:15 PM EDT Hospital Encounter [facility] Operating Room [address] [place] [address] [place] [address] [place] [address] Cholecystitis [K81.9][facility] Operating RoomComment on above: Cholecystitis [K81.9]Start: 08-96-4950Xajtarwfrz Health ScreeningBehavioral Health ScreeningCleSelect Medical Specialty Hospital - Cleveland-Fairhilltart: 54-69-9807Qxvcgzpazf AssessmentDepression AssessmentCleSelect Medical Specialty Hospital - Cleveland-Fairhilltart: 68-65-8446Xltbn-19 Vaccine ( season)Covid-19 Vaccine ( season)[facility]: 03-23-[address] [facility] Warren Hospitaltart: 02-06-2023 End: 37-21-8018Wuopvjk [Enzymatic activity/volume] in Serum or PlasmaAMYLASE BLD Lab Routine Generalized abdominal pain Chronic pancreatitis, unspecified pancreatitis type (HCC) Intestinal malabsorption, unspecified type Expected: 02/06/2023, Expires: 04/08/2023[facility] Work Phone: Comment on above:Expected: 02/06/2023, Expires: 04/08/2023Start: 02-06-2023 End: 89-61-2928IIVDAT SCREEN WITH REFLEXCELIAC SCREEN WITH REFLEX Lab Routine Generalized abdominal pain Chronic pancreatitis, unspecified pancreatitis type (HCC) Intestinal malabsorption, unspecified type Expected: 02/06/2023, Expires: 04/08/2023[facility] Work Phone: Comment on above:Expected: 02/06/2023, Expires: 04/08/2023Start: 02-06-2023 End: 89-57-0850Aojctpdkupccp metabolic 2000 panel - Serum or PlasmaCOMP METABOLIC PANEL Lab Routine Generalized abdominal pain Chronic pancreatitis, unspecified pancreatitis type (HCC) Intestinal malabsorption, unspecified type Expected: 02/06/2023, Expires: 04/08/2023[facility] Work Phone: Comment on above:Expected: 02/06/2023, Expires: 04/08/2023Start: 02-06-2023 End: 25-37-1250MVF SUBCLASS 1,2,3,4IGG SUBCLASS 1,2,3,4 Lab Routine Generalized abdominal pain Chronic pancreatitis, unspecified pancreatitis type (HCC) Intestinal malabsorption, unspecified type Expected: 02/06/2023, Expires: 04/08/2023[facility] Work Phone: Comment on above:Expected: 02/06/2023, Expires: 04/08/2023Start: 02-06-2023 End: 81-60-7985Zopwaj [Enzymatic activity/volume] in Serum or PlasmaLIPASE BLD Lab Routine Generalized abdominal pain Chronic pancreatitis, unspecified pancreatitis type (HCC) Intestinal malabsorption, unspecified type Expected: 02/06/2023, Expires: 04/08/2023[facility] Work Phone: Comtxfv on above:Expected: 02/06/2023, Expires: 04/08/2023Start: 02-06-2023 End: 88-78-1263Fuzte 1996 panel - Serum or PlasmaLIPID PANEL BASIC Lab Routine Generalized abdominal pain Chronic pancreatitis, unspecified pancreatitis type (HCC) Intestinal malabsorption, unspecified type Expected: 02/06/2023, Expires: 04/08/2023[facility] Work Phone: Comment on above:Expected: 02/06/2023, Expires: 04/08/2023Start: 02-06-2023 End: 79-66-1594Huuuhtk Ab [Presence] in Serum by ImmunoassayANA BLOOD Lab Routine Generalized abdominal pain Chronic pancreatitis, unspecified pancreatitis type (HCC) Intestinal malabsorption, unspecified type Expected: 02/06/2023, Expires: 04/08/2023[facility] Work Phone: Comment on above:Expected: 02/06/2023, Expires: 04/08/2023Start: [id number] ASSESSMENTDEPRESSION ASSESSMENTMercy Health St[facility] Hospitalt[facility]: 07-20-2022 End: 23-17-3823Ecjgwin encounter hmaeqlkzi19/29/2022 Office Visit Gastroenterology Irena Diallo MD [address] [place] [address] General and Gastrointestinal Surgery Outpatient Care [facility]: [id number] vaccinationINFLUENZA VACCINE (#1)[facility] End: 03-15-2023 DIFFICILE BY PCR (CLOSTRIDIUM DIFFICILE TOXIN)C DIFFICILE BY PCR (CLOSTRIDIUM DIFFICILE TOXIN) Microbiology Routine Diarrhea, unspecified type Expected: 03/15/2022, Expires: 03/15/2023[facility] HospitalComment on above:Expected: 03/15/2022, Expires: 03/15/2023Start: 03-15-2022 End: 82-27-4617NFVKYKBUQ ENTERIC PANEL, STOOLMOLECULAR ENTERIC PANEL, STOOL Fluids Routine Diarrhea, unspecified type Expected: 03/15/2022, Expires: 03/15/2023[facility]Expected: 03/15/2022, Expires: 03/15/2023Start: 32-03-2895TSDYM-19 VACCINE (3 - Booster for Pfizer series)COVID-19 VACCINE (3 - Booster for Pfizer series)[facility] Start: 07-70-6966KNWJP-19 VACCINE (3 - Booster for Pfizer series)COVID-19 VACCINE (3 - Booster for Pfizer series)[facility] [facility]: 12-75-4058FEHFC-19 VACCINE (3 - Pfizer series)COVID-19 VACCINE (3 - Pfizer series)[facility] Start: 39-40-0396UNrI,Tdap and Td Vaccines (7 - Td or Tdap)DTaP,Tdap and Td Vaccines (7 - Td or Tdap)[facility]Start: 90-45-5387EKiB/Tdap/Td Vaccines (7 - Td or Tdap)DTaP/Tdap/Td Vaccines (7 - Td or Tdap)[facility]: 58-26-4485Dwsxs microalbumin profileDTaP,Tdap,Td Vaccine (7 - Td or Tdap)[facility]: 19-44-9622CQV TESTINGPAP TESTING [facility]: 54-40-6077Gxywltqsi for malignant neoplasm of cervixProMedica Flower Hospitaltart: 31-10-1477Cualn diphtheria, tetanus and acellular pertussis (DTaP) vaccinationTDAP (ADULT)[facility]: 25-00-0468Bybky microalbumin profileMercy Health St. [facility] Hospitaltart: 31-28-6723Ywaionfwts ScreeningDepression ScreeningMercy Health St. [facility] Hospitaltart: 51-43-3812Ynsntghdm C screeningHepatitis C ScreeningSt. Rita's HospitalStfort worth: 2016 HIV SCREENINGHIV SCREENINGMercy Health St. [facility] Hospitaltart: 46-38-5400PRM screeningHIV ScreeningMercy Health St. [facility] Hospitaltart: 88-33-1224Somznoe vaccinationTETANUSOSMercy Health Clermont Hospitaltart: 59-73-5995Ickfnqvmypmvu B Vaccine: Consider Based On Risk (1 of 2 - Patient Seeks Protection)Meningococcal B Vaccine: Consider Based On Risk (1 of 2 - Patient Seeks Protection)[facility]: 2014 MENINGOCOCCAL B: Consider based on risk (1 of 2 - Patient Seeks Protection) MENINGOCOCCAL B: Consider based on risk (1 of 2 - Patient Seeks Protection) [facility]: 90-97-8403Ppwzoqezx for Chlamydia trachomatisCHLAMYDIA SCREENOSU [facility] Hospitaltart: 60-08-4101MLJ screeningHIV SCREENING DISCUSSIONOSU [facility] Hospitaltart: 48-50-2287BSBK TO ADULT TRANSITION ANNUAL ASSESSMENTPEDS TO ADULT TRANSITION ANNUAL ASSESSMENTUniversity [facility]als [facility] Start: 08-98-1952XQL Vaccine (3 - 2-dose series)HPV Vaccine (3 - 2-dose series) [facility]: 73-96-9549YPV Vaccines (3 - 2-dose series)HPV Vaccines (3 - 2-dose series)[facility]: 25-67-2025Vfwwgeehua ScreeningDepression ScreeningNovant Health Franklin Medical Centertart: 55-09-3711TCKU TO ADULT TRANSITION INITIAL DISCUSSIONPEDS TO ADULT TRANSITION INITIAL DISCUSSION [facility]: 12-09-1100Mbbovgwdivt for human papillomavirusHPV VACCINE ADOL (1 - 2-dose series)[facility]: 16-52-5239QIIUXACOHGNRB B: Consider based on risk (1 of 2 - Risk Bexsero 2-dose series)MENINGOCOCCAL B: Consider based on risk (1 of 2 - Risk Bexsero 2-dose series)[facility] Start: 24-15-2637CUM VACCINE (1 - 2-dose series)HPV VACCINE (1 - 2-dose series) [facility]: 01-15-7873YZJCYVJLB SCREENGONORRHEA SCREENOSU [facility]: 28-43-5706CSKOZSQAP B (1 of 3 - 3-dose series)HEPATITIS B (1 of 3 - 3-dose series)[facility]: 62-02-5186Dbjrakzxx B Vaccine (1 of 3 - 3-dose series)Hepatitis B Vaccine (1 of 3 - 3-dose series)[facility]: 37-00-2879Mwlxqccta C antibody, confirmatory testHEPATITIS C VIRUS SCREENINGOSU [facility]tart: 82-50-7105AWN screeningHIV Screening [facility]: 25-37-6728Vrdfk panelLipid Panel [facility]: 04-22-8551Cdiiaz Adult PhysicalYearly Adult [facility] HospitalBlood type and Indirect antibody screen panel - BloodType And Screen Lab Timed As needed (Lab) for 1 Occurrences starting 04/16/2024[facility] Service Area Work Phone: Comment on above:As needed (Lab) for 1 Occurrences starting 4CBC W Auto Differential panel - BloodCBC and differential Lab Routine PCOS (polycystic ovarian syndrome) Ordered: 03/24/2025[facility] Comment on above:Ordered: 03/24/2025 End: 31-80-0645Fm angio abd&plvis cntrst mtrl w/wo cntrst imgCTA ABD/PEL W IVCON Radiology Routine Generalized abdominal pain RUQ pain Chronic recurrent pancreatitis (HCC) Diarrhea, unspecified type 1 Occurrences starting 06/13/2023 until 07/12/2024[facility] Work Phone: comment on above:1 Occurrences starting 06/13/2023 until 07/12/2024ermatopathology examDermatopathology exam Pathology and Cytology Timed Neoplasm of unspecified behavior of bone, soft tissue, and skin Release Upon Ordering for 1 Occurrences starting 07/01/2024[facility] Work Phone: comment on above:Release Upon Ordering for 1 Occurrences starting 07/01/2024 End: 44-57-3621EdpeikwgqgbpbgwzSFIY Cardiology Routine Other supraventricular tachycardia (HCC) Palpitations 1 Occurrences starting 10/22/2023 until 10/21/2024[facility] Work Phone: Comment on above:1 Occurrences starting 10/22/2023 until 10/21/2024Follicle stimulating hormoneFollicle stimulating hormone Lab Routine PCOS (polycystic ovarian syndrome) Ordered: 03/24/2025[facility] Comment on above:Ordered: 03/24/2025hCG, quantitative, pregnancyhCG, quantitative, Lab Routine PCOS (polycystic ovarian syndrome) Ordered: 03/24/2025[facility] Work Phone: comment on above:Ordered: 03/24/2025Hemoglobin A1c/Hemoglobin.total in BloodHemoglobin A1c Lab Routine Abnormal uterine bleeding (AUB) Ordered: 03/24/2025[facility] HealthcareComment on above:Ordered: 03/24/2025Luteinizing hormoneLuteinizing hormone Lab Routine PCOS (polycystic ovarian syndrome) Ordered: 03/24/2025[facility] HealthcareComment on above:Ordered: 03/24/2025 End: 95-21-1379Trjzyyov SedationModerate Sedation Procedures Routine Once for 1 Occurrences starting 04/16/2024 until 04/16/2024[facility] Work Phone: Comment on above:Once for 1 Occurrences starting 04/16/2024 until 04/16/2024 End: 99-34-5727Waq abdomen w/o & w/contrast materialMRI ABDOMEN WO/W IVCON Radiology Routine Chronic recurrent pancreatitis (HCC) 1 Occurrences starting 03/16/2023 until 04/14/2024[facility] Work Phone: Comment on above:1 Occurrences starting 03/16/2023 until 04/14/2024 End: 96-87-6728EF Stomach Views for gastric emptying solid phase W radionuclide PONM GASTRIC EMPTYING SOLID Radiology Routine Upper abdominal pain Dyspepsia and disorder of functionof stomach Dyspepsia 1 Occurrences starting 12/28/2023 until 01/26/2025[facility]Comment [facility]:1 Occurrences starting 12/28/2023 until 01/26/2025OUTSIDE VENDOR CARDIAC OUTPATIENT EXTENDED RHYTHM RECORDING (WITHOUT TELEMETRY)OUTSIDE VENDOR CARDIAC OUTPATIENT EXTENDED RHYTHM RECORDING (WITHOUT TELEMETRY) Holter Routine Other supraventricular tachycardia (HCC) Palpitations Ordered: 10/22/2023[facility] Work Phone: Comment on above:Ordered: 10/22/2023 End: 17-99-8144JN Gastrointestinal tract upper Views W barium contrast POXR UPPER GI SINGLE CONTRAST Radiology Routine Upper abdominal pain Dyspepsia and disorder of function of stomach 1 Occurrences starting 12/28/2023 until 01/26/2025[facility] Work Phone: Comment on above:1 Occurrences starting 12/28/2023 until 01/26/2025Study Interpretation of outside [facility] Service AreaSurgical pathology studySurgical Pathology Exam Pathology and Cytology Timed Median arcuate ligament syndrome (CMS-HCC) Release Upon Ordering for 1 Occurrences starting 04/16/2024[facility] Service Area Work Phone: comment on above:Release Upon Ordering for 1 Occurrences starting 04/16/2024Thyrotropin [Units/volume] in Serum or PlasmaTSH Lab Routine PCOS (polycystic ovarian syndrome) Ordered: 03/24/2025[facility] HealthcareComment on above:Ordered: 03/24/2025Thyroxine (T4) free [Mass/volume] in Serum or PlasmaT4, free Lab Routine PCOS (polycystic ovarian syndrome) Ordered: 03/24/2025[facility] HealthcareComment on above:Ordered: 03/24/2025Tissue Pathology biopsy reportW[facility]-Patterson [facility] Work Phone: Comment on above:Release Upon Ordering for 1 Occurrences starting 09/03/2024, [facility] Immunizations Immunization DateImmunizationNotesCare KaosaqcdDdslyuev90-12-3447bdxti papilloma virus vaccine, quadrivalentElif Rich MD Work Phone: [facility] CenterPxionamqiv83-59-8051ymlhqbbvk virus vaccineElif Rich MD Work Phone: [phone] CenterCljdozafni69-49-0640SLB, unspecified formulation Dane Merida MD Work Phone: [facility] Work Phone: [phone] papilloma virus vaccine, quadrivalent Elif Rich MD Work Phone: [facility] CenterNuhjxqmvwb95-78-5967fgvyqgukcwioi polysaccharide (groups A, C, Y and W-135) diphtheria toxoid conjugate vaccine (MCV4P)Elif Rich MD Work Phone: [facility] CenterNdixmvjgxz22-28-6463mdrygsx toxoid, reduced diphtheria toxoid, and acellular pertussis vaccine, adsorbedElif Rich MD Work Phone: [facility] CenterWyzhgxxdcy93-25-6387kxveqhvmv virus vaccineElif Rich MD Work Phone: [phone] [place], [place] [address]Qttqegdybv90-63-7848ukfyygronk, tetanus toxoids and acellular pertussis vaccineElif Rich MD Work Phone: [phone] [place], [place] [address]Ctkmcdmuck10-82-5362rzwgzbu, mumps and rubella virus vaccineElif Rich MD Work Phone: [phone] [place], [place] [address]Kkpqgrxozw37-58-6610frvdxijoyp vaccine, inactivatedElif Rich MD Work Phone: [phone] [place], [place] [address]Kpssrnxiqb56-77-1631zzqqozkalx, tetanus toxoids and acellular pertussis vaccine, unspecified formulationElif Rich MD Work Phone: [phone] [place], [place] [address]Ntisxqeoxt34-38-9174etwunucqjoab conjugate vaccine, 7 valentEjustine Rich MD Work Phone: [phone] [place], [place] [address]Arkkvalswi56-52-7234ssaefzmceec influenzae type b vaccine, conjugate unspecified formulationElif Rich MD Work Phone: [phone] [place], [place] [address]Kvxwmxebbe37-23-4336hjzxbol, mumps and rubella virus vaccineElif Rich MD Work Phone: [phone] [place], [place] [address]Nteajsxzrt00-77-0485xmyzurseyc vaccine, unspecified formulationElif Rich MD Work Phone: [phone] [place], [place] [address]Ntgxmthgud61-56-2724naisfgcse virus vaccineElif Rich MD Work Phone: [phone] [place], [place] [address]Miyjxkxyjw04-39-4874fdiudbwbfc, tetanus toxoids and acellular pertussis vaccine, unspecified formulationElif Rich MD Work Phone: [phone] [place], [place] [address]Pqtzgunueq69-59-8380uecqbmavsxo influenzae type b vaccine, conjugate unspecified formulationElif Rich MD Work Phone: [phone] [place], [place] [address]Draybzlrcx96-45-7816ummksxvit B vaccine, pediatric or pediatric/adolescent dosageElif Rich MD Work Phone: [phone] [place], [place] [address]Rvnrcpjzxk54-96-6856mubqyviccd vaccine, unspecified formulationElif Rich MD Work Phone: [phone] [place], [place] [address]Crrylfxtoa50-42-6465tfrvppcuyc, tetanus toxoids and acellular pertussis vaccine, unspecified formulationElif Rich MD Work Phone: [phone] [place], [place] [address]Goqtuibyib64-11-5785xzgbigajigl influenzae type b vaccine, conjugate unspecified formulationElif Rich MD Work Phone: [phone] [place], [place] [address]Lbvbwnkhdk49-43-0734cnnazclnyk vaccine, unspecified formulationElif Rich MD Work Phone: [phone] [place], [place] [address]Qicbvldqvu09-50-0781nmuoplsypj, tetanus toxoids and acellular pertussis vaccine, unspecified formulationElif Rich MD Work Phone: [phone] [place], [place] [address]Jrqzrnrnmm66-54-7277upkqlybdcrn influenzae type b vaccine, conjugate unspecified formulationElif Rich MD Work Phone: [phone] [place], [place] [address]Kzcfyuknsg79-56-1124sissafgwg B vaccine, pediatric or pediatric/adolescent dosageElif Rich MD Work Phone: [phone] [place], [place] [address]Ctvkgzysad77-58-6411owvkpaybty vaccine, unspecified formulationElif Rich MD Work Phone: [phone] [place], [place] [address]Fypvhijdir99-86-2291irhovmpfa B vaccine, pediatric or pediatric/adolescent dosageElif Rich MD Work Phone: [phone] [place] [address] Payers DatePayer CategoryPayerPolicy [id number]-[id number] Cross Blue [id number] [facility] Center Managed CareB[facility] [id number].9.084427.400251.08479-68-8699ZikdLos Alamos Medical Center [id number] 2.160.9.411467.49289630-56-8076Porusle 1.2.840.087161.1.13.172.2.7.3.503[id number] 2..2.075783.13322100-26-3236Cngqhkn Health InsuranceUNITED HEALTHCARE 1.2840.871938.1.13.693.2.7.9.014269.048854.01930-22-1602Cimpbyk Health Xhmygxrrl2[id number] 2.0.1.873167.3.579.2.647 [id number] 2.1.083746.3.579.2.02122-47-5669Pjwzygd [id number] 2.0.1.535443.3.579.2.21693-60-0404Siwdzvh3911574 2.0.1.427151.3.579.2.29254-14-3431Rqbdkkt2907696 2.0.1.287062.3.579.2.94955-28-2852Famnqqq9413539 2.0.1.117451.3.579.2.75636-06-1336Hnwoomy0571743 2.16.840.1.351412.3.579.2.99947-71-1949Ajztnwc0355232 2.16840.1.823917.3.579.2.22076-77-6246Ejpemuk5002095 2.16840.1.039609.3.579.2.09229-36-0693Qrdfmbz8922710 2.16840.1.293766.3.579.2.26958-19-0519Wjymiws0648576 2.16840.1.635637.3.579.2.32386-73-9961Rpanilk6842140 2.840.1.899937.3.579.2.19793-87-0284Tjmqkfb6277196 2.840.1.124576.3.579.2.58127-04-3023Grfnjrg2677268 2.840.1.053101.3.579.2.53469-24-3643Hjvprxy1185365 2.840.1.777703.3.579.2.00283-15-2894Wavdidq1278172 2.840.1.385720.3.579.2.19793-86-2581Aorgwla8544448 2.840.1.727979.3.579.2.95223-38-4024Kzzkfau9177779 2.840.1.360150.3.579.2.40112-56-1698Cbswkgj9196123 2.16840.1.733208.3.579.2.91880-71-5904Lrfuiws3366173 2.16840.1.652656.3.579.2.17848-40-8527Qzwcsmd1512614 2.16840.1.416217.3.579.2.24641-23-1534Bhjbthe5607138 2.16840.1.290650.3.579.2.55492-24-6632Sjjncml1240290 2.16840.1.850886.3.579.2.08716-31-9870Dpokzxb8547482 2.16840.1.044696.3.579.2.46297-66-5215Vqgchaa5586080 2.840.1.450873.3.579.2.83810-25-0450Fizxtxh7581099 2.840.1.583234.3.579.2.81620-72-7106Duwgrpu4380160 2.840.1.806120.3.579.2.11969-66-6640Vvlhzqe1601584 2.840.1.518321.3.579.2.20154-08-3976Nspjhpz4507609 2.0.1.116570.3.579.2.67084-10-5522Vmwpawj8882328 2.840.1.493776.3.579.2.11259-59-9246Luyyrou8364151 2.840.1.525691.3.579.2.18641-82-5464Hlriggo1627516 2.840.1.852941.3.579.2.07083-94-6878Ijbyrnc4395668 2.840.1.868773.3.579.2.65004-18-4372Unsiiye4273470 2.840.1.252361.3.579.2.80341-38-7483Xqcwwav5727114 2.840.1.528385.3.579.2.19206-48-9006Xopdqku14480575 2.840.1.207737.3.579.2.274556-68-3937Prcmtuz8627811 2.840.1.681282.3.579.2.450871-91-3715Tiekykw2559432 2..840.1.712127.3.579.2.3513Wjpuqsl01337968 2..840.1.653655.3.579.2.531 Tcfzwwl36088449 2..840.1.045084.3.579.2.531 Social History DateTypeDetailFacilityUnknown if ever smokedNort [employer] Other Start: 02-06-2023 End: 82-14-2394Jpr Assigned At BirthMer[facility] Health St. [facility] Hospitaltart: 03-15-2022 End: 33-80-7722Vnygadx smoking status NHISNever smoked tobaccoOSU [facility] Hospitaltart: 03-15-2022 End: 09-48-7633Jrugver use and exposureSmokeless tobacco non-userOSU [facility] Hospitaltart: 03-15-2022 End: 30-67-8304Gwmtwso intakeCurrent drinker of alcohol (finding)[facility] CenterStart: 25-91-0029Cussrwy SDOH Alcohol CommentsocialOSMercy Health Clermont Hospitaltart: 76-50-5511Qot Assigned At BirthNot on fileOSMercy Health Clermont Hospitaltart: 46-13-4765Wxswzyn smoking status NHISEx-smokerUniversity Hospitals Parma Medical CenterHistory of tobacco useCurrent smokerMercy Health St. [facility] Hospitaltart: 37-61-5757Wxz Assigned At BirthFemaleCgrand [facility] ClinicStart: 02-06-2023 End: 11-95-0663Fokolqb of Social functionMercy Health St. Joseph [facility] Hospitaltart: 10-59-7080Vzncu Depression Screening Zxucnpptxh0Rhuayjrdo ClinicStart: 61-21-1772Gzfvcu identity Identifies as female gender (finding)[facility]: 44-46-3657Denuvz orientationHeterosexual (finding)[facility] CenterTobamercy [facility] [facility] [place] NHIS Tobacco smoking consumption unknownMercy Health St. [facility] Hospitaltart: 06-06-2023 End: 51-00-3104Thpdczu intakeEx-drinker (finding)[facility]: 42-15-4667Yljofwt Commentsocially- rareMercy Health St. [facility] Hospitaltart: 82-96-1799Isoqyxg Comment1-2 drinks/monthly or lessNOMS HealthcareHow often to you have a drink containing alcohol?NeverUnKettering Health Hamilton Work Phone: Start: 01-26-2024 End: 75-04-1856Ikmaxwvy to SARS-CoV-2 (event)Not sureSt. Rita's HospitalStart: 07-24-2024 End: 58-72-2051IndSqjfpk (finding)[facility] DaytonNEGATED: Highlighted rowTrinity Health System East Campus Functional Status RzxtArodtiasnjGvzciuShitiihd13-26-9483Ouwvizxajw [facility] Work Phone: [phone]f - suicide severity rating scale screener - recent [C-SSRS][facility] Work Phone: [phone]v statusUnKettering Health Hamilton Work Phone: [facility] Mental Status MmtzBwjqtyosrrOkcaupTalswtex64-07-4720Gymvbrfub function findingNegative 04/16/2024 8:18 AM EDT Jyoti Hodges, VIRGILIO NegativeSt. Rita's Hospital Work Phone: Clinical Notes 12-02-2020 to 03-24-2025 Note Date & IoadBsmuYrpdccdt64-33-4106 History of Present illness Narrative* Valery Vazquez [...] abdominal pain 05/02/2022 Menstrual disorder 01/24/2023 Miscarriage ([facility]) 01/24/2023 Nausea 05/02/2022 Pain due to genitourinary [...] due to intrauterine contraceptive device (IUD) Pancreatitis ([facility]) 2014 Urine test negative HISTORY PAST [...] ovary Irregular menses IUD check up Miscarriage ([facility]) Pain due to intrauterine contraceptive device (IUD) Pancreatitis ([facility]) 2014 Dr Owen/ Hospitalization history: 2019, [...] nursing note reviewed. Exam conducted with a pie icer machine present. Vitals: Estimated body mass index is [...] of: Jeremiah Burroughs DO documented in this encounterSaint Mary's Health CenterDqlfvvyxvw73-60-3592 History and physical note * Dara Butler [...] 03, 2024 TIME: 10:18 AM PAGER/CONTACT #: [facility]02-12-2025 History and physical note* Dara Butler Jr., [...] 10:18 AM PAGER/CONTACT #: documented in this encounterUniversity Hospitals Parma Medical Center02-12-2025 Nurse Note* Sera Garner RN - 09/03/2024 [...] Sera Garner RN In Department: [facility] ENDOSCOPY [facility]02-12-2025 Nurse Note* Sera Garner RN - 09/03/2024 [...] Sera Garner RN In Department: [facility] ENDOSCOPY [facility] documented in this encounterJennifer [place] [address]-31-2025 Telephone encounter Note * Telephone Encounter - Shu Wilkins - 08/22/2024 11:18 AM EST Case [facility] to cancel with Dr. Huffman 08/27 per patient request. [facility]01-31-2025 Miscellaneous Notes* Telephone Encounter - Shu Wilkins - 08/22/2024 11:18 AM EST Case [facility] to cancel with Dr. Huffman 08/27 per patient request. documented in this encounterUniversity Hospitals Parma Medical Center01-06-2025 Note Attestation signed by Paula Huggins MD [...] be an additional personal documentation from me. [facility] Gastroenterology Follow-Up Patient Visit CHIEF COMPLAINT [...] endometriosis related. She is travelling soon to [place] next 15 days and was mentioning that she was having some UTI symptoms andrequested some medication just in case she starting the antibiotics for C diff and we instructed her that in case of confirming the UTI and starting the treatment to communicate with us to update (more content not included)... [facility]12-26-2024 Telephone encounter Note* Telephone Encounter - Ham Thompson LPN - 07/17/2024 10:41 AM EST Left message that below message viewable on patient's MC. Requested return call if unable to view message. [facility]12-26-2024 Miscellaneous Notes* Telephone Encounter - Ham Thompson [...] labs. Take over the counter vitamin D 0403-2468 International Units daily with food. Happy to further review and discuss at follow up visit. Thank you. 07/15/24 normal vitamin D 39.8, vitamin b12-841; documented in this encounterUniversity Hospitals Parma Medical Center12-24-2024 Telephone encounter Note * Telephone Encounter - Nae Ibarra MD - 07/15/2024 6:41 PM EST Please Call patient if MyChart note not read to review results/released to My Chart if tests completed at [facility]: normal labs. Take over the counter vitamin D 8320-8346 International Units daily with food. Happy to further review and discuss at follow up visit. Thank you. 07/15/24 normal vitamin D 39.8, vitamin b12-841; [facility]12-24-2024 History of Present illness Narrative* Nae Ibarra [...] ccp<15, irena ifa, hepatitis panel, quantiferon tb; Hog Driver and always walking for exercise. NO swelling. [...] GI for C.diff & pancreatitis care, see ROTARY MACHINE OPERATOR, start prn heat/ice/otc arthritis creams, low impact [...] Dactylitis: no H/o precedent/frequent infection(s): as above Enthesopathy/[place]'s/heel/plantar tenderness: no Skin thickening, psoriasis, photosensitivity, purpura: [...] hormones; G1, P0, 1miscarriage 10/2021 Colonoscopy: outside [facility] 2020 zach rawls Bone Density:no History of Fractures:no Height Loss: no IMMUNIZATION HX: Immunization History Administered Date(s) Administered COVID-19 original vaccine, age 12+ yr, monovalent ([employer] - PURPLE TOP) 03/16/2021 04/06/2021 Pneumovax no Flu shot no Tetanus yes Last PPD: unsure PAST MEDICAL HISTORY: PMH headaches, s/p wisdom teeth extraction, s/p mole back removed PAST SURGICAL HISTORY: s/p wisdom teeth extraction, s/p mole back removed FAMILY HISTORY: mother-healthy;father- osteoarthritis;sister- sick frequently; 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 NO swelling. [...] and recurrent infection care, avoid triggers, see ROTARY MACHINE OPERATOR, start prn heat/ice/otc arthritis creams, low impact [...] touching your toes, sit-ups, using row machine correction pain recommendations per primary care provider/pain clinic [...] video & audio (virtual) or phone or urvq-op-jwjh patient care, completing clinical documentation, obtaining and/or [...] Workers' Compensation? No Do you need an cook at school? No [facility] PROMIS CAT V2.0-PHYSICAL FUNCTION-28 DAYS [...] body? Without ANY difficulty Bend down to apple picker clothing from the floor? Without ANY [...] understand my health Agree documented in this encounterUniversity Hospitals Parma Medical Center12-24-2024 NoteHNO ID: [id number] Author: NAE IBARRA MD Service: ? 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 NO swelling. 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, start prn heat/ice/otc arthritis creams, low impact [...] dyspnea, nausea, vomiting, night (more content not included)...[facility]12-24-[facility] Instructions * Patient Instructions* Nae Ibarra MD [...] touching your toes, sit-ups, using row machine correction pain recommendations per primary care provider/pain clinic [...] Abs Lymph 1.00 - 4.00 k/uL 2.06 Yolo% % 8.1 Abs Yolo <0.87 k/uL 0.42 Eosin% % 4.3 Abs [...] hepatitis panel, quantiferon tb; documented in this encounterUniversity Hospitals Par[facility] Center12-17-2024 Evaluation note* Diagnosis Onset Date Resolution Status Admit Date Diarrhea acuteDecember 2023 2:08pm [facility] Work Phone: [phone]) 295-223412-17-2024 Evaluation note* Diagnosis Onset Date Resolution Status Admit Date Diarrhea acuteDecember 2023 2:08pmDysuriaacuteJanuary 2024 11:33am [facility] Work Phone: 1([phone]) 887-269512-12-2024 History of Present illness Narrative* Valery Vazquez, MATERIAL PLANNER - 07/03/2024 11:40 AM EST Reason for [...] Pain due to intrauterine contraceptive device (IUD) ([facility]) ([facility]) Pancreatitis 2014 Urine test negative [...] Pain due to intrauterine contraceptive device (IUD) ([facility]) ([facility]) Pancreatitis 2014 Dr Owen/ Hospitalization history: 2019, [...] nursing note reviewed. Exam conducted with a pie icer machine present. Vitals: Estimated body mass index is [...] of: Jeremiah Burroughs DO documented in this encounterSaint Mary's Health [id number] Telephone encounter Note* Telephone Encounter - Jorge Oropeza - 07/03/2024 9:20 AM EST BLOCK CELIAC PLEXUS WITH C-ARM needs rescheduled. Please reach out to her to reschedule this. [facility]12-12-2024 Miscellaneous Notes* Telephone Encounter - Jorge Oropeza - 07/03/2024 9:20 AM EST BLOCK CELIAC PLEXUS WITH C-ARM needs rescheduled. Please reach out to her to reschedule this. documented in this encounterUniversity Hospitals Parma Medical Center12-10-2024 History of Present illness Narrative* Elif Rich [...] Visit: pending biopsy results documented in this encounterSaint Mary's Health CenterJytnrmuarh18-34-1644 Telephone encounter Note* Telephone Encounter - Shu Wilkins - 06/23/2024 4:53 PM EST Case message sent to surgery pool to cancel with Dr. Huffman 07/04 per patient request. [facility]12-02-2024 Miscellaneous Notes* Telephone Encounter - Shu Wilkins - 06/23/2024 4:53 PM EST Case message sent to surgery pool to cancel with Dr. Huffman 07/04 per patient request. * Telephone Encounter - Bonny Joyner - 06/23/2024 10:36 AM EST PT called asking to cancel their procedure scheduled on 07/04/2024. Please review and advise. Thank you! documented in this encounterUniversity Hospitals Parma Medical Center12-02-2024 Telephone encounter Note * Telephone Encounter - Bonny Joyner - 06/23/2024 10:36 AM EST PT called asking to cancel their procedure scheduled on 07/04/2024. Please review and advise. Thank you! [facility]10-23-2024 Telephone encounter Note* Telephone Encounter - Shu Wilkins - 05/14/2024 1:38 PM EDT diagnostic celiac plexus blockade CHIOMA ALONZO [id number] DESMOND HUFFMAN 07/04 -THINNERS -DM Patient was made aware that the ASC will call the day prior to scheduled procedure between the hours of 12 and 4 pm to advise patient of arrival time the day of procedure. Patient was advised that they will require a local combination truck driver on the day of their procedure, and procedure will be cancelled if they arrive without a responsible adult to transport them home from the procedure. Patient advised that all medication management instructions prior to procedure will need addressed by clinical staff. Patient expresses understanding with no further questions or concerns at this time. [facility]10-23-2024 Miscellaneous Notes* Telephone Encounter - Shu Wilkins - 05/14/2024 1:38 PM EDT diagnostic celiac plexus blockade CHIOMA ALONZO [id number] DESMOND HUFFMAN 07/04 -THINNERS -DM Patient was made aware that the ASC will call the day prior to scheduled procedure between the hours of 12 and 4 pm to advise patient of arrival time the day of procedure. Patient was advised that they will require a local combination truck driver on the day of their procedure, and procedure will be cancelled if they arrive without a responsible adult to transport them home from the procedure. Patient advised that all medication management instructions prior to procedure will need addressed by clinical staff. Patient expresses understanding with no further questions or concerns at this time. documented in this encounterUniversity Hospitals Parma Medical Center10-23-2024 Telephone encounter Note * Telephone Encounter - Shu Wilkins - 05/14/2024 1:36 PM EDT OPENED IN ERROR [facility]10-23-2024 Miscellaneous Notes* Telephone Encounter - Shu Wilkins - 05/14/2024 1:36 PM EDT OPENED IN ERROR documented in this encounterUniversity Hospitals Parma Medical Center10-09-2024 NoteHNO ID: [id number] Author: PAULA PRETTY MD Service: ? Author [...] than the standard meal, (more content not included)...[facility]10-09-2024 History of Present illness Narrative* Paula Pretty [...] which lowers the sensitivity of the study. Fire Extinguisher Installer: PSCB Transcribe Date/Time: Jan 30 2024 2:09P [...] any questions regarding this interpretation, please call [phone]. If you are unable to reach us at the number above, please feel free to contact [facility] at [phone]. Results-Findings * * *Final Report* * * DATE OF EXAM: Jul 05 2023 11:20AM [facility] 0311 - CTA ABD/PELV [...] fluid collection. Bones/Soft Tissues: No significant finding. Teacher'S Assistant (topogram) images: No additional findings. Result History CTA ABD/PEL W IVCON (Order #[id number]) on 07/05/2023 - Order Result History R [...] bentyl prn 3 times/week. Last colonoscopy in [place] and normal. No response to creon Fecal [...] which included: *preparing to see the patient *[id number] patient care *completing clinical documentation *obtaining and/or [...] MD April 30, 2024 documented in this encounterUniversity Hospitals Parma Medical Center10-03-2024 Telephone encounter Note * Telephone Encounter - Gisela Ponce RN - 04/24/2024 2:53 PM EDT Pt of Dr. Butler. Pt is scheduled with Dr. Menon for f/u OV 05/07/2024 (made on 12/12/2023). No need for f/u OV with Dr. Menon. Continue f/u with Dr. Butler as well as Dr. Ambriz ([facility]). Attempted to call pt, no answer. Left detailed voice msg that OV with be cancelled. Instructed to call back with any questions. Gisela Ponce RN [facility] Work Phone: 1([phone]) 440-610010-03-2024 Miscellaneous Notes* Telephone Encounter - Gisela Ponce RN - 04/24/2024 2:53 PM EDT Pt of Dr. Butler. Pt is scheduled with Dr. Menon for f/u OV 05/07/2024 (made on 12/12/2023). No need for f/u OV with Dr. Menon. Continue f/u with Dr. Butler as well as Dr. Ambriz ([facility]). Attempted to call pt, no answer. Left detailed voice msg that OV with be cancelled. Instructed to call back with any questions. Gisela Ponce RN documented in this encounterUniversity Hospitals Parma Medical Center09-25-2024 Hospital Discharge instructions* Discharge Instructions* Kenny Batista [...] ofhaving your procedure, call the [facility] to be advised whether a visit to [...] inflamed, or looks infected. documented in this [facility] Work Phone: [phone]) 508-226909-04-2024 NoteHNO ID: [id number] Author: PAULA PRETTY MD Service: ? Author Type: Anesthesiologist Type: Progress Notes Filed: 03/26/2024 12:27 Note Text: power outage in building appt rescheduled Paula Pretty [facility]09-04-2024 History of Present illness Narrative* Paula Pretty MD - 03/26/2024 10:55 AM EDT power outage in building appt rescheduled Paula Pretty MD documented in this encounterUniversity Hospitals Parma Medical Center08-21-2024 Telephone encounter Note * Telephone Encounter - Yvrose Martinez RN - 03/12/2024 11:46 AM EDT Call placed to patient to relay below message, patient verbalized understanding. Order for c.diff placed Dara Butler Jr., DO [facility]08-21-2024 Miscellaneous Notes* Telephone Encounter - Yvrose Martinez [...] like callback with recommendations/order documented in this encounterUniversity Hospitals Parma Medical Center08-21-2024 Telephone encounter Note * Telephone Encounter - [...] advise, patient would like callback with recommendations/order [facility]08-14-2024 History of Present illness Narrative* Whitney Ambriz [...] do notcorrelate with eating. Last colonoscopy in [place] and normal. Sometimes feels like can't take [...] with her after her block. [facility] 01/30/24: RESULT: Solid study demonstrates: - 70% gastric retention at 1 hour (normal range, 37-90%), - 47% retention at 2 hours (normal range, 30-60%), and - 4% retention at 4 hours (normal range, 0-10%). CT Angio abdomen pelvis 07/05/[address] [address] Mneon: IMPRESSION: Likely physiologic extrinsic compression of the [...] Heptobiliary Scan 11/2022: Diagnostic Colonoscopy 07/[address] [facility]: Impression: Unremarkable colon examination. No ulceration, [...] Types: Marijuana MEDICATIONS: Prior to Admission Medications: [facility] ALLERGIES: No Known Allergies REVIEW OF [...] Director of Bariatric & Minimally Invasive Surgery [address] [address] T: [phone] F: [phone] Sita Santos RN Wood Shingle Roofer Nurse Sleeping Bag Filler, Mill Roll Rewinder Patient Nursing Contact T: [phone] F: [phone] Urmila Baker LPN Coordinator T: [phone] F: [phone] documented in this encounterSt. Rita's Hospital Work Phone: 1(888) 272-215608-14-2024 Instructions* Patient Instructions* Whitney Ambriz MD MPH - 03/05/2024 2:15 PM EDT PLAN: I will do an endoscopy I would like get pics from the last couple of CT scans. Get the injection. Let's put all of this together and see where we are. Dr. Whitney Ambriz M.D., MPH Director of Bariatric & Minimally Invasive Surgery [place] [address] T: [phone] F: [phone] Sita Santos RN Wood Shingle Roofer Nurse Sleeping Bag Filler, Mill Roll Rewinder Patient Nursing Contact T: [phone] F: [phone] Urmila Baker LPN Coordinator T: [phone] F: [phone] documented in this encounterSt. Rita's Hospital Work Phone: 1(391) 799-697208-06-2024 History of Present illness Narrative* Bola Braden [...] which included preparing to see the patient, [id number] patient care, completing clinical documentation, obtaining and/or reviewing separately obtained history, performing a medically appropriate examination, counseling and educating the pat ient/family/caregiver, and independently interpreting results (not separately reported). Bola Braden MD February 26, 2024 * Bola Braden MD - 02/26/2024 3:21 PM EDT error documented in this encounterUniversity Hospitals Parma Medical Center08-06-2024 NoteHNO ID: [id number] Author: BOLA BRADEN MD Service: ? Author [...] Systems Gastroenterology (Submi (more content not included)... [facility]08-06-2024 NoteHNO ID: [id number] Author: BOLA BRADEN MD Service: ? Author Type: Physician Type: Progress Notes Filed: 02/26/2024 18:47 Note Text: errorSelect [facility]-06-2024 Nurse Note* Eva Gray MA - 02/26/2024 3:18 PM EDT What is the reason for your visit today? Consult Who is your referring physician? None Are you having poor oral intake? NO Have you had unintentional weight loss of 15 lbs/7 Kg in the last 3-6 months? NO Bowels: diarrhea or regular Wound: None Temperature: No Drains: No [facility]08-06-2024 Nurse Note* Eva Gray MA - 02/26/2024 3:18 PM EDT What is the reason for your visit today? Consult Who is your referring physician? None Are you having poor oral intake? NO Have you had unintentional weight loss of 15 lbs/7 Kg in the last 3-6 months? NO Bowels: diarrhea or regular Wound: None Temperature: No Drains: No documented in this encounterUniversity Hospitals Parma Medical Center07-22-2024 History of Present illness Narrative* Wayne Templeton [...] Cane, Wheelchair, Crutches, etc.)? [facility] GENDER DATA: Female. status: : No status: NO. PATIENT RELEVANT IMPLANT DATA REVIEWED: Not Applicable PATIENT PRESENTS WITH AN IMPLANTABLE OR ATTACHED STAFF PSYCHOLOGIST: No RADIOLOGY DEPARTMENT: General X-ray: Exam(s) Completed: GI/ Procedure(s): Upper GI with barium contrast PERIPHERAL IV DATA: Not applicable SIGNED BY: RT Tabitha(R) February 11, 2024 9:44 AM documented in this encounterUniversity Hospitals Parma Medical Center07-22-2024 NoteHNO ID: [id number] Author: WAYNE TEMPLETON RT(R) Service: ? Author [...] PATIENT PRESENTS WITH AN IMPLANTABLE OR ATTACHED STAFF PSYCHOLOGIST: No RADIOLOGY DEPARTMENT: General X-ray: Exam(s) Completed: GI/ Procedure(s): Upper GI with barium contrast PERIPHERAL IV DATA: Not applicable SIGNED BY: RT Tabitha(R) February 11, 2024 9:44 [facility]07-16-2024 History of Present illness Narrative* Dane [...] her after her block. documented in this [facility] Work Phone: 1(664) 626-449807-10-2024 History of Present illness Narrative* Vitor Harp [...] PATIENT PRESENTS WITH AN IMPLANTABLE OR ATTACHED STAFF PSYCHOLOGIST: No CREATININE: Creatinine Date Value Ref Range [...] 826 PATIENT DISCHARGED TO: Ambulatory patient, left [place] department area. A Diagnostic radioactive procedure has taken place, with no further precautions necessary other than routine body substance precautions. More information regarding radiation safety can be found usingthis link: [email or web address] 20Diagnostic%20Nuclear%20Medicine%20Procedures.pdf SIGNATURE: MARTÍN De La Rosa PATIENT NAME: Chioma Alonzo DATE: January 30, 2024 TIME: 10:38 AM PAGER/CONTACT #: documented in this encounterUniversity Hospitals Parma Medical Center07-10-2024 NoteHNO ID: [id number] Author: VITOR HARP CNMT Service: ? Author Type: Logistics Service Representative Type: Progress Notes Filed: 01/30/2024 10:40 Note [...] PATIENT PRESENTS WITH AN IMPLANTABLE OR ATTACHED STAFF PSYCHOLOGIST: No CREATININE: Creatinine Date Value Ref Range [...] [address] PERFORMED: No IV SITE: SC only - not applicable, oral or physician administered agents given to patient POST EXAM PIV STATUS: Not applicable PROCEDURE TYPE: NM GET: 1.1 mCi Tc99m SULFUR COLLOID was administered orally via 4 oz eggbeaters and 4 ounces of water orally. ADMINISTRATION TIME: 826 PATIENT DISCHARGED TO: Ambulatory patient, left [place] department area. A Diagnostic radioactive procedure has taken place, with no further precautions necessary other than routine body substance precautions. More information regarding radiation safety can be found using this link: [email or web address] 20Diagnostic%20Nuclear%20Medicine%20Procedures.pdf SIGNATURE: MARTÍN De La Rosa PATIENT NAME: Chioma Alonzo DATE: January 30, 2024 TIME: 10:38 AM [facility]AG[facility]CONTACT [phone] Telephone encounter Note* Telephone Encounter - Vitor Harp CNMT - 01/29/2024 1:15 PM EDT SPOKE WITH PT TO CONFIRM APT TO AND EXPLAIN THE EXAM AND ANY PREP. [facility]07-09-2024 Miscellaneous Notes* Telephone Encounter - Vitor Harp CNMT - 01/29/2024 1:15 PM EDT SPOKE WITH PT TO CONFIRM APT TO AND EXPLAIN THE EXAM AND ANY PREP. documented in this encounterUniversity Hospitals Parma Medical Center06-20-2024 History of Present illness Narrative* Mckenzie Shepherd [...] Status post laparoscopic appendectomy [Z90.49] AMANDO BARON [facility] General Surgery [place] This note was created with the assistance of a speech recognition program. While intending to generate a timely document that accurately reflects the content of the visit, no guarantee can be provided that every grammatical or spelling mistake has been or will be identified or corrected. Thank you for your understanding. AMANDO Baron 01/16/24 1213 documented in this encounterLouis Stokes Cleveland [facility]06-07-2024 Instructions* Patient Instructions* Dara Butler Jr., - 12/28/2023 3:15 PM EDT Check gastric emptying study Check Upper GI series Start amitriptyline Start pantoprazole Stop Carafate May use Levbid as needed documented in this encounterUniversity Hospitals Parma Medical Center06-07-2024 History of Present illness Narrative* Dara Butler [...] an issue, start amitriptyline. Consider referral to [facility] if symptoms fail to improve. [...] last colonoscopy was 8 months ago in [place]. Start amitriptyline Keep appt with Dr. Menon [...] divisum. 12/01/22 HIDA scan was done at [facility]: Normal study EF 69% US: 10/31/22: [...] with 350 mL of normal saline. 08/02/22 [facility] Gastroenterology Chioma Alonzo is a 21 [...] Lymph 1.00 - 4.00 k/uL 2.43 2.06 Yolo% % 8.4 8.1 Abs Yolo <0.87 k/uL 0.47 0.42 Eosin% % 3.4 [...] SOLID Dara Butler Jr. documented in this encounterUniversity Hospitals Parma Medical Center06-07-2024 NoteHNO ID: [id number] Author: DARA BUTLER JR, DO Service: ? [...] an issue, start amitriptyline. Consider referral to [facility] if symptoms fail to improve. [...] last colonoscopy was 8 months ago in [place]. Start amitriptyline Keep appt with Dr. Menon [...] divisum. 12/01/22 HIDA scan was done at [facility]: Normal study EF 69% US: 10/31/22: (care everywhere) Liver normal Gallbaldder appears normal with no stones or sludge. No gallbladder wall thickening CBD 1.[address] abd/pel w/IV cont: 10/18/22: (scanned): Liver: no enlargement, atrophy, or focal lesion Biliary: no dilation or calcification Pancreas: haziness and p (more content not included)...[facility]06-05-2024 Telephone encounter Note* Telephone Encounter - Analia [...] and advise. Thank you Analia Estevez RN [facility]06-05-2024 Miscellaneous Notes* Telephone Encounter - Analia Estevez [...] advise. Analia Estevez RN documented in this encounterUniversity Hospitals Parma Medical Center06-03-2024 Telephone encounter Note * Telephone Encounter - Analia Estevez RN - 12/24/2023 10:06 AM EDT Maintain Levbid. Start Carafate. Ok to move up appt to December. Dara Butler Jr., DO Please call pt to set up an office visit in December, may use hold spot if needed. Thank you. Analia Estevez RN [facility]06-03-2024 Telephone encounter Note* Telephone Encounter - Analia Estevez RN - 12/24/2023 8:[address] Butler, would you prefer to see pt sooner in December? She was started on Levbid recently with no real improvement and requesting sooner office visit? Wondering if she might benefit from seeing functional medicine? Please review and advise. Analia Estevez RN [facility]05-15-2024 History of Present illness Narrative* Ariella Mccoy [...] up: KAREN Mccoy APRN.CNP documented in this encounterUniversity Hospitals Parma Medical Center05-15-2024 NoteHNO ID: [id number] Author: ARIELLA MCCOY APRN.CNP Service: ? Author [...] that may arise. Follow up: KAREN Mccoy APRN.CNPSelect [facility]-15-20[facility] Nurse Note* Alivia Gracia MA - 12/05/2023 [...] clean & dry Temperature: No Drains: No [facility]05-15-2024 Nurse Note* Alivia Gracia MA - 12/05/2023 [...] Temperature: No Drains: No documented in this encounterUniversity Hospitals Parma Medical Center05-01-2024 NoteHNO ID: [id number] Author: ?, ?, ? Service: ? Author Type: ? Type: Plan of Care Filed: 11/26/2023 17:37 Note Text: PHARMACY BEDSIDE DELIVERY SERVICE Patient Name: Chioma Alonzo The marked outpatient medications were filled and [facility] at [facility] Medication List START taking these medications [...] or your Primary Care Provider. Miguel Flores (Nurse Anesthetist) PAGER: [phone] November 26, 2023 5:37 [facility]05-01-2024 NoteHNO ID: [id number] Author: THELMA MARQUIS APRN.CRNA Service: Anesthesiology Author Type: Nurse Inverter And Clipper Type: Anesthesia Procedure Notes Filed: 11/21/2023 14:23 Note Text: ANESTHESIOLOGY PROCEDURE NOTE Airway General Information Procedure Start Time/Medication Administration: 11/21/2023 2:14 PM Procedure End Time: 11/21/2023 2:22 PM Patient location during procedure: OR Timeout Performed Pre-procedure: timeout performed Patient identity confirmed: arm band, care sales floor team member and patient Staffing Anesthesiologist: Moshe Krishnamurthy DO PRESSURE VESSEL INSPECTOR: Thelma Marquis APRN.PRESSURE VESSEL INSPECTOR Performed by: PRESSURE VESSEL INSPECTOR Indications and Patient Condition Indications for airway [...] lips and teeth intact. SIGNATURE: Thelma Marquis APRN.PRESSURE VESSEL INSPECTOR PATIENT NAME: Chioma Alonzo DATE: November 21, 2023 TIME: 2:22 PM CSN: [id number] Telephone encounter Note * Telephone Encounter - [...] surgery. Hope this helps! Augustus Rushing MD [facility]04-26-2024 Miscellaneous Notes* Telephone Encounter - Madhu Causey [...] as scheduled? Event monitor preliminary reading in [employer] View Cardiac Outpatient Recording/Telemetry [ID [id number]] ECHO completed in [employer]. Of note she also has been to the ED 2 times for her palpitations since your visit, with c/o of palpations intermittently throughout the day. she denies associated SOB or dizziness. She reports her symptoms have not changed. Thank you, Madhu Causey PA-C [facility] documented in this encounterUniversity Hospitals Parma Medical Center04-25-2024 Telephone encounter Note * Telephone Encounter - [...] a cardiac standpoint. Per his last OV [facility]04-25-2024 Telephone encounter Note* Telephone Encounter - Madhu [...] as scheduled? Event monitor preliminary reading in [employer] View Cardiac Outpatient Recording/Telemetry [ID [id number]] ECHO completed in [employer]. Of note she also has been to the ED 2 times for her palpitations since your visit, with c/o of palpations intermittently throughout the day. she denies associated SOB or dizziness. She reports her symptoms have not changed. Thank you, Madhu Causey PA-C [facility]04-25-2024 History and physical note* Madhu Causey PA-C [...] SOB. Pulse today 75, regular rhythm today [id number] Ejection Fraction - Result: 63 % [...] COVID-19 original vaccine, age 12+ yr, monovalent ([employer] - PURPLE TOP) 03/16/2021 Imm Admin: COVID-19 original vaccine, age 12+ yr, monovalent ([employer]- [employer] - PURPLE TOP) REVIEW OF SYSTEMS: positive findings are BOLD PAIN ASSESSMENT: Pain Pain Level: 5 Pain Location: Back-Lower Description: Aching Duration Units: Months Frequency: Continuous Intervention/Comfort measure: Relaxation, Heat General: No weight loss, malaise or fevers. Neuro: No history of TIA's, stroke, BAR AND FILLER ASSEMBLER tumor, impaired sensorium, hemiplegia, paraplegia or quadraplegia. [...] 402 QTC Calculation (Bazett) 424 Calculated P [place] 76 Calculated R [place] 37 Calculated T [place] 57 Impression NORMAL SINUS RHYTHM WITH SINUS ARRHYTHMIA POSSIBLE LEFT ATRIAL ENLARGEMENT RSR' PATTERN IN V1 SUGGESTS INCOMPLETE RIGHT BUNDLE BRANCH BLOCK BORDERLINE ECG NO PREVIOUS ECGS AVAILABLE Confirmed by JENNIFER SURESH MD ([id number]) on 10/22/2023 1:00:28 PM Most recent Echo Recent Results (from the past 63251 hour(s)) ECHO Collection Time: 11/07/23 1:59 PM [...] were present. Isolated VEs were frequent (6.9%, [id number]), VE Couplets were rare (<1.0%, 21), and no VE Triplets were present. Ventricular Bigeminy and Trigeminy were present. Instructions Given to Patient: Instructions located in the after visit summary. Patient given verbal and written preop instructions and voices comprehension and compliance. SIGNATURE: Madhu Causey PA-C PATIENT NAME: Chioma Alonzo DATE: 11/15/2023 TIME: 2:43 PM [facility]04[facility] History and physical note* Madhu Causey PA-C [...] SOB. Pulse today 75, regular rhythm today [id number] Ejection Fraction - Result: 63 % [...] Prior to Admission medications as of 11/15/23 8189 Medication Sig Last Dose Taking dicyclomine (BENTYL) [...] original vaccine, age 12+ yr, monovalent (PFIZER- BIONTCellumen - PURPLE TOP) 03/16/2021 Imm Admin: COVID-19 original vaccine, age 12+ yr, monovalent (PFIZER- BIONTECH - PURPLE TOP) REVIEW OF SYSTEMS: positive findings are BOLD PAIN ASSESSMENT: Pain Pain Level: 5 Pain Location: Back-Lower Description: Aching Duration Units: Months Frequency: Continuous Intervention/Comfort measure: Relaxation, Heat General: No weight loss, malaise or fevers. Neuro: No history of TIA's, stroke, BAR AND FILLER ASSEMBLER tumor, impaired sensorium, hemiplegia, paraplegia or quadraplegia. [...] 402 QTC Calculation (Bazett) 424 Calculated P Macon 76 Calculated R Macon 37 Calculated T Macon 57 Impression NORMAL SINUS RHYTHM WITH SINUS ARRHYTHMIA POSSIBLE LEFT ATRIAL ENLARGEMENT RSR' PATTERN IN V1 SUGGESTS INCOMPLETE RIGHT BUNDLE BRANCH BLOCK BORDERLINE ECG NO PREVIOUS ECGS AVAILABLE Confirmed by JENNIFER SURESH MD ([id number]) on 10/22/2023 1:00:28 PM Most recent Echo Recent Results (from the past 18643 hour(s)) ECHO Collection Time: 11/07/23 1:59 PM [...] were present. Isolated VEs were frequent (6.9%, 18912), VE Couplets were rare (<1.0%, 21), and no VE Triplets were present. Ventricular Bigeminy and Trigeminy were present. Instructions Given to Patient: Instructions located in the after visit summary. Patient given verbal and written preop instructions and voices comprehension and compliance. SIGNATURE: Madhu Causey PA-C PATIENT NAME: Chioma Alonzo DATE: 11/15/2023 TIME: 2:43 PM documented in this encounterUniversity Hospitals Parma Medical Center04-22-2024 Instructions* Patient Instructions* Madhu Causey PA-C - 11/12/2023 9:12 AM EDT PATIENT PREOPERATIVE INSTRUCTIONS Seema Davis MD has scheduled you for your procedure at this surgery center: [facility]: [phone] --[address] [address]. Please check in on the1st floor at [...] Procedures: - YOU MUST HAVE A RESPONSIBLE RESIDENT BUYER TAKE YOU HOME. A EDGE RUNNER OR HANDTOOLS REPAIRER CANNOT BE MADE A RESPONSIBLE RESIDENT BUYER. - We recommend that a responsible person stays with you overnight to take care of you. - You cannot stay in a hotel alone after outpatient surgery. You will not be permitted to have yoursurgery, if you do not have someone to take care of you. If you already have an Advance Directive, please fax a copy to [phone] or email to for it to be [...] day. Madhu Causey PA-C documented in this encounterUniversity Hospitals Parma Medical Center04-15-2024 Miscellaneous Notes* Telephone Encounter - Sedrick Rushing [...] she is in Bigeminy. documented in this encounterUniversity Hospitals Parma Medical Center04-11-2024 Miscellaneous Notes* Telephone Encounter - Chichi Monroy [...] ongoing symptoms Staying hydrated Concerned Call CELL [phone] Leave Detailed messages * Telephone Encounter - Juanis Cabello RN - 10/30/2023 11:08 AM EDT The pt is calling. Please review the my chart message from today for an EKG attachment she sent from her ED visit last night. She went to the [place] ED. Are you able to revue her [...] a message. Thank you documented in this encounterUniversity Hospitals Parma Medical Center04-02-2024 Miscellaneous Notes* Telephone Encounter - Wilfredo Avila OCCA - 10/23/2023 1:51 PM EDT Received form requesting cardiac evaluation for surgical clearance from [facility] General Surgery with Dr. Seema Davis. Surgery Date: 11-21-2023 Fax to [facility] General Surgery: [phone] Rushing to review. CHATO Ramirez documented in this encounterUniversity Hospitals Parma Medical Center04-02-2024 Miscellaneous Notes* Telephone Encounter - Kym Gray RN - 10/23/2023 1:[address] Sedrick Rushing's office for cardiac clearance at [phone]. Abnormal heart sounds withgallbladder consult on 10/19/23. Received confirmation. Sent to scanning documented in this encounterUniversity Hospitals Parma Medical Center04-01-2024 Nurse Note* Azael Larson LPN - 10/22/2023 3:33 PM EDT EVENT MONITOR DISPOSABLE PATCH INSTRUCTIONS Patient Name: Chioma Alonzo [facility] Number: [id number] Skin prepped and cleansed with alcohol Patch secured to prepped area Monitor Activated Serial #: [id number] Patient Instructed: Prescribed order timeframe Bathing guidelines Usage of event button and diary documentation Return of monitor at the end of prescribed order Call with problems [phone] or [phone] ext. [phone] Patient expresses a good understanding of instructions Azael Larson LPN documented in this encounterUniversity Hospitals Parma Medical Center04-01-2024 History of Present illness Narrative* Sedrick Rushing MD - 10/22/2023 3:00 PM EDT Images from the original note were not included. [facility] Pathak Department of Cardiovascular Medicine SECTION OF REGIONAL CARDIOLOGY OUTPATIENT VISIT DATE October 21, 2023 OUTPATIENT VISIT TYPE NEW CONSULTATION PRIMARY CARE PHYSICIAN: Analia Holliday [address] [facility] [facility] [place] [address] CHIEF COMPLAINT: Palpitations HISTORY OF PRESENT ILLNESS: [...] Rash, Shortnessof Breath, Unknown, Vomiting CURRENT MEDICATIONS: mdxeez-nladkopw-yrkpluh (CREON) 24,000-76,000 -120,000 unit delayed release capsule [...] on File Prior to Visit Medication Sig juvkyw-mjwejdkf-pziucrx (CREON) 24,000-76,000 -120,000 unit delayed release capsule [...] Sedrick Rushing MD Cardiovascular Medicine Staff [facility] [address] [facility] [address] documented in this encounterUniversity Hospitals Parma Medical Center04-01-2024 NoteHNO ID: [id number] Author: SEDRICK RUSHING MD Service: ? Author Type: Physician Type: Progress Notes Filed: 10/22/2023 15:17 Note Text: [facility] Department of Cardiovascular Medicine SECTION OF REGIONAL CARDIOLOGY OUTPATIENT VISIT DATE October 21, 2023 OUTPATIENT VISIT TYPE NEW CONSULTATION PRIMARY CARE PHYSICIAN: Analia Holliday [address] [facility] [address] CHIEF COMPLAINT: Palpitations HISTORY OF PRESENT ILLNESS: [...] Shortness of Breath, Unknown, Vomiting CURRENT MEDICATIONS: fysqys-pwsoethy-kfvktur (CREON) 24,000-76,000 -120,000 unit delayed release capsule [...] on File Prior to Visit Medication Sig ryhsuh-nvhlyfyf-cxaxtfu (CREON) 24,000-76,000 -120,000 unit delayed release capsule [...] INFORMATION: Sedrick Rushing MD Cardiovascular Medicine Staff [facility] [address] [facility] [place] [address] [facility]gdhpnmaoSelect [facility] [place]03-29-2024 NoteHNO ID: [id number] Author: KYM GRAY RN Service: ? Author [...] Kym Gray RN In Department: GENERAL SURGERY [facility]03-29-2024 NoteHNO ID: [id number] Author: KYM GRAY RN Service: ? Author [...] gallbladder EF-69%. This measurement is within normal limitsSelect Medical Specialty Hospital - [facility] [place]03-29-2024 NoteHNO ID: [id number] Author: SEEMA DAVIS MD Service: ? Author [...] Take 4 mg by mouth as needed. 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 Lives with her . [...] the date of the service which included iyet-zu-idzn patient care, completing clinical documentation, obtaining and/or reviewing separately obtained history, performing a medically appropriate examination, counseling and educating the patient/family/caregiver, and independently interpreting results (not separately reported). Seema Davis MD .[facility]03-29-2024 NoteEducation (GABRIELLA) CINDYCHIOMA Newberry Jovana ([id number]) 2000 F Date Time Provider Department 10/19/23 KYM GRAY Reason for Visit: Education Of Patient/family [904] Primary Visit Diagnosis:Acalculous cholecystitis [K81.9] Order(s):PT ED DIGESTIVE DISEASE [7736944] Order #: [id number]: 1 During your visit today, we recorded [...] Fully Assessed Prescriptions as of 10/19/2023 - bczwij-louolypd-jvysqpa (CREON) 24,000-76,000 -120,000 unit delayed release capsule [...] needed. Encounter Status:Closed by KYM GRAY on 10/19/23[facility] 09-11-2023 Miscellaneous Notes* Telephone Encounter - Gisela Ponce RN - 09/11/2023 4:25 PM EST Please refer to [facility] dated 09/11/2023. Gisela Ponce RN * Telephone Encounter - Jose ManueljajaZo - 09/11/2023 3:08 PM EST Patient calling to see if she is to follow up with Dr. Menon. He did recommend surgeon consult for cholecystectomy. Patient is asking for referral Please adivse patient documented in this encounterUniversity Hospitals Parma Medical Center02-15-2024 Nurse Note* Rickie Gu RN - 09/06/2023 [...] None REFERRAL (RECOMMENDATION): None documented in this encounterUniversity Hospitals Parma Medical Center02-15-2024 History and physical note * Isabelle Menon [...] mouth once daily. 09/05/2023 at 1000 Yes azhwhx-ilrrugli-qugozyd (CREON) 24,000-76,000 -120,000 unit delayed release capsule [...] 2023 TIME: 12:20 PM documented in this encounterUniversity Hospitals Parma Medical Center11-26-2023 Miscellaneous Notes* Telephone Encounter - Isabelle Menon [...] in one of her images report from [facility]. I will recommend CT-angiography to r/o gut [...] you, Gisela Ponce RN documented in this encounterUniversity Hospitals Parma Medical Center11-15-2023 History and physical note * Isabelle Menon [...] her mother who works as in at [employer]. The problem started when she was [...] an issue, start amitriptyline. Consider referral to [facility] if symptoms fail to improve. [...] divisum. 12/01/22 HIDA scan was done at [facility]: Normal study EF 69% US: 10/31/22: [...] with 350 mL of normal saline. 08/02/22 [facility] Gastroenterology Chioma Alonzo is a 21 [...] Abs Lymph 1.00 - 4.00 k/uL 2.17 Yolo% % 8.1 Abs Yolo <0.87 k/uL 0.36 Eosin% % 5.6 Abs [...] Isabelle Menon MD, FACP documented in this encounterUniversity Hospitals Parma Medical Center11-10-2023 Evaluation note* Encounter Date Diagnosis Assessment Notes Treatment Notes Treatment Clinical Notes May, Vitamin D insufficiency (ICD-10 - E55.9) [facility] Other 11-02-2023 Evaluation note* Encounter Date Diagnosis Assessment Notes Treatment Notes Treatment Clinical Notes May, Well adult exam (ICD-10 - Z00.00 ) Routine lab work ordered. She will follow up with eye doctor due to some floaters that she is having. Follow routinely with dentist and [employer] [employer]. Specialty notes reviewed as received. Patient is [...] Lexapro 10 mg daily. Will continue this. [facility] Other 10-31-2023 Instructions* Patient Instructions* Dara Butler Jr., DO - 05/22/2023 11:39 AM EDT Start amitriptyline Keep appt with Dr. Menon for pancreatic / biliary clinic documented in this encounterUniversity Hospitals Parma Medical Center10-31-2023 History of Present illness Narrative* Dara Butler [...] last colonoscopy was 8 months ago in [place]. Past GI workup 05/08/23 ER visit notes [...] Office Visit [facility] [address] [place] [address] Kyree Stinson MD Abnormal flushing and sweating [...] per patient. She sees a specialist to [facility] doctor Butler for GI- currently awaiting genetic [...] dicyclomine 12/01/22 HIDA scan was done at [facility]: Normal study EF 69% US: 10/31/22: [...] with 350 mL of normal saline. 08/02/22 [facility] Gastroenterology Chioma Alonzo is a 21 [...] (PCR) (04/02/2023 10:00 AM EDT) Results - [facility] GI PANEL (PCR) (04/02/2023 10:00 AM [...] Abs Lymph 1.00 - 4.00 k/uL 2.17 Yolo% % 8.1 Abs Yolo <0.87 k/uL 0.36 Eosin% % 5.6 Abs [...] BY MOUTH THREE TIMES DAILY WITH MEALS cusmrv-xucdjzxj-nrvkjqk (ZENPEP) 40,000-126,000- 168,000 unit delayed release capsule [...] an issue, start amitriptyline. Consider referral to [facility] if symptoms fail to improve. [...] studies Dara Butler Jr. documented in this encounterUniversity Hospitals Parma Medical Center10-12-2023 Miscellaneous Notes* Telephone Encounter - Analia Estevez [...] Dara Butler Jr., DO documented in this encounterUniversity Hospitals Parma Medical Center09-23-2023 Miscellaneous Notes* Telephone Encounter - Analia Estevez RN - 04/14/2023 9:23 AM EDT Patient has viewed results per [employer]. Analia Estevez RN * Telephone Encounter - Analia Estevez RN - 04/14/2023 9:23 AM EDT ----- Message from Dara Butler Jr., DO sent at 04/13/2023 4:04 PM EDT ----- MRI negative for pancreatitis and anatomic pancreatic abnormalities. Dara Butler Jr., DO documented in this encounterUniversity Hospitals Parma Medical Center09-22-2023 Miscellaneous Notes* [facility] - Yessi Adkins, comber setter - 04/13/2023 2:40 PM EDT Radiology Service [...] 2023 TIME: 3:13 PM documented in this encounterUniversity Hospitals Parma Medical Center09-22-2023 Progress note* [facility] - Yessi Adkins [...] DATE: April 13, 2023 TIME: 3:13 PM [facility]09-08-2023 Miscellaneous Notes* Telephone Encounter - Analia Estevez RN - 03/30/2023 10:33 AM EDT Patient has viewed results per [employer], Inct. Analia Estevez RN * Telephone Encounter - [...] CDIFF. She had this testing done through [facility]. She is working on getting faxed results to office. Pt states she feels fine, no symptoms but would like to follow up with nurse. Please advise Patient has been identified by name and birthdate. Duration of symptoms: N/A Person calling: self Call patient at: at home [phone] (home) [phone] (cell) Was an appointment scheduled: No Closing statement: Results or non-symptom based questions: Thank you for calling [facility], your call will be returned within the next business day. Eva Wynne documented in this encounterUniversity Hospitals Parma Medical Center09-05-2023 Evaluation note* Encounter Date Diagnosis Assessment Notes Treatment Notes Treatment Clinical Notes Mar, Diarrhea (ICD-10 - R19.7) [facility] [employer] Other 09-01-2023 Evaluation note* Encounter Date Diagnosis Assessment Notes Treatment Notes Treatment Clinical Notes Mar, C. difficile diarrhea (ICD-10 - A04.72) [facility] [employer] Other 09-01-2023 Miscellaneous Notes* Telephone Encounter - Bryson Arredondo MA - 03/23/2023 7:59 AM EDT Pt was notified via . * Telephone Encounter - Nae Ibarra MD - 03/22/2023 9:36 PM EDT Please Call patient if MyChart note not read to review results/released to My Chart if tests completed at [facility]: Improved/Normal labs and no inflammation. Take over [...] hepatitis panel, quantiferon tb; documented in this encounterUniversity Hospitals Parma Medical Center08-30-2023 Miscellaneous Notes* Telephone Encounter - Analia Estevez RN - 03/21/2023 11:02 AM EDT Results were viewed by patient per [employer]. Analia Estevez RN * Telephone Encounter - Analia Estevez RN - 03/21/2023 11:00 AM EDT ----- Message from Dara Butler Jr., DO sent at 03/21/2023 7:46 AM EDT ----- Labs essentially unremarkable including negative celiac Dara Butler Jr., DO documented in this encounterUniversity Hospitals Parma Medical Center08-29-2023 Evaluation note* Encounter Date Diagnosis Assessment Notes Treatment Notes Treatment Clinical Notes Feb, Diarrhea (ICD-10 - R19.7) [facility] Other 08-25-2023 Miscellaneous Notes* Telephone Encounter - Analia Estevez RN - 03/16/2023 12:38 PM EDT Per our discussion please review and sign orders for MRI per out discussion based off mychart message per patient. Analia Estevez RN documented in this encounterUniversity Hospitals Parma Medical Center07-18-2023 Instructions* Patient Instructions* Dara Butler Jr., DO - 02/06/2023 10:35 AM EDT Check labs Start Levbid Start Zenpep Stop dicyclomine documented in this encounterUniversity Hospitals Parma Medical Center07-18-2023 History of Present illness Narrative* Dara Butler [...] REFLEX Dara Butler Jr. documented in this encounterUniversity Hospitals Parma Medical Center06-05-2023 Miscellaneous Notes* Telephone Encounter - Ana Eckert - 12/25/2022 10:22 AM EDT Spoke with patient Scheduled Consult to GI for first avail at [facility] in January Did not schedule Med Gen Consult. Still pending review- patient said she will schedule when she sees Dr Luke Eckert December 25, 2022 10:27 AM * Telephone Encounter - Bryson Arredondo MA - 12/25/2022 9:22 AM EDT Pt has been notified via [employer] * Telephone Encounter - Nae Ibarra MD - 12/23/2022 12:53 AM EDT Please call patient. Thank you for the update and your kind words. Sorry to hear about your discomfort. Placed a consult to medical genetics and GI as requested. May schedule at your convenience. Hope you feel better soon! Warm regards, :) documented in this encounterUniversity Hospitals Parma Medical Center05-03-2023 Evaluation note* Encounter Date Diagnosis Assessment Notes Treatment Notes Treatment Clinical Notes November, Nausea (ICD-10 - R11.0) Advised pt to avoid smoking marijuana to see if that helps relieve symptoms. November,ancreatitis (ICD-10 - K85.90) November,bnormal abdominal CT scan (ICD-10 - R93.5) November,bdominal pain (ICD-10 - R10.9)Start dicyclomine 10mg tid November,Irritable bowel syndrome with diarrhea (ICD-10 - K58.0)Recommended Benefiber Follow up 2 months [facility] Other 01-01-2023 History general Narrative - Reported* Type Description Date Medical History Esophageal reflux Medical HistoryanxietySurgical Historywisdom teeth extractSurgical HistoryFMT 07/2022Hospitalization Historypancreatitis [facility] Other 10-06-2022 Evaluation note* Encounter Date Diagnosis Assessment Notes Treatment Notes Treatment Clinical Notes Apr, Irritable bowel syndrome with di arrhea (ICD-10 - K58.0) PATIENT DOES HAVE 3 BOWEL MOVEMENTS A DAY SOMETIMES 1 Apr,2RUQ pain (ICD-10 - R10.11) [facility] Other 08-24-2022 History of Present illness Narrative* Mckenzie Kincaid RN - 03/15/2022 3:30 PM EDT Patient verified full name and * Irena Diallo MD - 03/15/2022 3:30 PM EDT GI CLINIC PROGRESS NOTE PATIENT NAME: Chioma Henao ATTENDING: Irena Diallo MD : 2000 AGE: 21 y.o. 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 Symptoms persist, possible post infection IBS vs recurrent c. Diffinfection. Active marijuana user, smokes viper as well. DISPOSITION AND PLAN: 1. Will obtain c diff toxin Ag 2. Stool enteric panel 3. [place] of Bentyl 4. Imodium prn (after infection is ruled out) 5. Marijuana and viper abstinence counseling provided. Face to face interaction: 25 Time to complete visit: 60 Irena Diallo MD Retail Stock Clerk Division of Gastroenterology, Hepatology and Nutrition Department of Internal Medicine [facility] documented in this encounterOSU [facility]08-24-2022 Instructions* Patient Instructions* Irena Diallo MD - 03/15/2022 3:30 PM EDT C diff toxin Ag Enteric stool panel Dicyclomine Imodium prn if infection is ruled out documented in this encounterU [facility]03-08-2022 Evaluation note * Encounter Date Diagnosis Assessment Notes Treatment Notes Treatment Clinical Notes Sep, C. difficile diarrhea (ICD-10 - A04.72) START DIFICID DIRECTED REFERRAL TO [facility] FOR RECURRET C.DIFF [facility] Other 11-30-2021 NoteChief Complaint consultation for nausea [...] Use:., 06/21/2021 Family History Cancer: Father. Stroke: Mother.[facility] CenterComment on above:Result Comment: Electronically Signed By: KALEB MACKEY, Ana Lan\Date and Time Signed: 06/21/21 20:44 [id number] Evaluation note* Encounter Date Diagnosis Assessment Notes [...] care instructions given in writting by [facility] Care At Home document. [facility] Other 05-18-2021 NoteChief Complaint Consultation for Colonoscopy [...] Use:., 12/07/2020 Family History Cancer: Father. Stroke: Mother.[facility] CenterComment on above:Result Comment: Electronically Signed By: KALEB MACKEY, Ana Lan\Date and Time Signed: 12/07/20 17:18 [id number] Miscellaneous Notes* Result Encounter Note - Rickie Naqvi DO - 12/02/2020 10:00 AM EDT CTA head and neck are both normal. No abnormalities noted. documented in this encounterSelect Medical Specialty [facility] noteNo DocDepNocox branson [employer] Other Evaluation note* Diagnosis Diarrhea, unspecified type- Primary documented in this encounter [facility]* Diagnosis Generalized abdominal pain- Primary Abdominal pain, generalized documented in this encounter [facility] note* Diagnosis Chronic pancreatitis, unspecified pancreatitis type (HCC)- Primary Generalized abdominal pain Abdominal pain, generalized Intestinal malabsorption, unspecified type documented in this encounter [facility] note* Diagnosis Chronic recurrent pancreatitis (HCC)- Primary Chronic pancreatitis documented in this encounter [facility] note* Diagnosis Chronic pancreatitis, unspecified pancreatitis type (HCC)- Primary Generalized abdominal pain Abdominal pain, generalized Irritable bowel syndrome with diarrhea Irritable bowel syndrome History of Clostridioides difficile colitis documented in this encounter [facility] note* Diagnosis Family history of ischemic heart disease and other diseases of the circulatory system History of acute pancreatitis Personal history of other diseases of digestive system Carotid artery aneurysm (HCC) Aneurysm of artery of neck documented in this encounter [facility] noteNo assessment information [facility] Work Phone: Evaluation note* Diagnosis RUQ pain- Primary Abdominal pain, right upper quadrant History of pancreatitis Personal history of other diseases of digestive system Nausea Nausea alone Diarrhea, unspecified type History of Clostridium difficile infection Personal history of other infectious and parasitic disease documented in this encounter [facility] note* Diagnosis Generalized abdominal pain- Primary Abdominal pain, generalized RUQ pain Abdominal pain, right upper quadrant Chronic recurrent pancreatitis (HCC) Chronic pancreatitis Diarrhea, unspecified type documented in this encounter [facility] note* Diagnosis Chronic recurrent pancreatitis (HCC) Chronic pancreatitis documented in this encounter [facility] CenterEvalusouth [facility]* Diagnosis Palpitations- Primary Other supraventricular tachycardia (HCC) Cholecystitis Cholecystitis, unspecified documented [facility] encounter [facility]* Diagnosis Pre-op examination- Primary Preoperative examination, unspecified Palpitations Organic anxiety syndrome Anxiety disorder in conditions classified elsewhere Cholecystitis Cholecystitis, unspecified documented in this encounter [facility]* Diagnosis Onset Date Resolution Status Esophageal reflux acuteGAD (generalized anxiety disorder)acuteIrritable bowel syndrome with diarrheaacuteVitamin D insufficiencyacute [facility] Work Phone: Evaluation note* Diagnosis S/P gastrointestinal surgery, follow-up exam- Primary Follow-up examination, following other surgery S/P laparoscopic cholecystectomy Other postprocedural status [facility]* Diagnosis Generalized abdominal pain- Primary Abdominal pain, generalized History of acute pancreatitis Personal history of other diseases of digestive system [facility]* Diagnosis Upper abdominal pain- Primary Abdominal pain, other specified site Dyspepsia and disorder of function of stomach Dyspepsia and other specified disorders of function of stomach Dyspepsia Dyspepsia and other specified disorders of function of stomach [facility] Diagnosis Upper abdominal pain Abdominal pain, other specified site Dyspepsia and disorder of function of stomach Dyspepsia and other specified disorders of function of stomach Dyspepsia Dyspepsia and other specified disorders of function of stomach [facility]* Diagnosis Upper abdominal pain Abdominal pain, other specified site Dyspepsia and disorder of function of stomach Dyspepsia and other specified disorders of function of stomach [facility]* Diagnosis Epigastric pain- Primary Abdominal pain, epigastric [facility]* Diagnosis Onset Date Resolution Status LOCO (generalized anxiety disorder) acute [facility] Work Phone: evaluation note* Diagnosis APPOINTMENT CANCELLED- Primary [facility]* Diagnosis Chronic recurrent pancreatitis (HCC) Chronic pancreatitis [facility]* Diagnosis Diarrhea, unspecified type- Primary documented in this encounter [facility] note* Diagnosis Right sided abdominal pain- Primary Abdominal pain, unspecified site Neuralgia and neuritis Neuralgia, neuritis, and radiculitis, unspecified Celiac artery compression syndrome (HCC) Celiac artery compression syndrome [facility] this [facility]* Diagnosis Right sided abdominal pain- Primary Abdominal pain, unspecified site Celiac artery compression syndrome (HCC) Celiac artery compression syndrome Neuralgia and neuritis Neuralgia, neuritis, and radiculitis, unspecified Right sided abdominal pain Abdominal pain, unspecified site Celiac artery compression syndrome (HCC) Celiac artery compression syndrome Neuralgia and neuritis Neuralgia, neuritis, and radiculitis, unspecified [facility]* Diagnosis Neoplasm of unspecified behavior of bone, soft tissue, and skin- Primary [facility] Diagnosis Median arcuate ligament syndrome (CMS-HCC)- Primary Celiac artery compression syndrome documented in this encounter [facility] Work Phone: Evaluation note* Diagnosis Epigastric pain- Primary Abdominal pain, epigastric Median arcuate ligament syndrome (CMS-HCC) Celiac artery compression syndrome Difficulty breathing Other dyspnea and respiratory abnormality documented in this encounter [facility] Work Phone: Evaluation note* Diagnosis Follow-up visit after miscarriage [facility] Diagnosis Median arcuate ligament syndrome (CMS-HCC) Celiac artery compression syndrome documented in this encounter [facility] Work Phone: Evaluation note* Diagnosis Chronic [...] and radiculitis, unspecified documented [facility] this [facility]* Diagnosis Generalized abdominal pain Abdominal pain, generalized Change in bowel habits Other symptoms involving digestive system documented in this [facility]* Diagnosis Status post laparoscopic appendectomy- Primary Other postprocedural status [facility] Diagnosis Onset Date Resolution Status Admit Date Diarrhea acuteApril 2024 9:52am [facility] Work Phone: Evaluation note* Diagnosis Encounter for infertility PCOS (polycystic ovarian syndrome) Polycystic ovaries Abnormal uterine bleeding (AUB) documented in this encounter [facility]* Diagnosis 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 Work Phone: History general Narrative - Reported* Type Description Date Medical History Esophageal reflux Medical HistoryanxietySurgical Historywisdom teeth extractHospitalization Historypan51edu Other Hisdeji general Narrative - Reported* Type Description Date Medical History Esophageal reflux Medical HistoryANXIETYMedical HistoryPANCREATITISMedical HistoryC DIFFMedical HistoryCOLON INFLAMMATIONMedical History2 FECAL TRANSPLANTSMedical History ENDOMETRIOSISSurgical Historywisdom teeth extractSurgical EmcssjqAWM19/2023 Surgical HistoryLAPROSOCOPY FOR ENDOMETRIOSISHospitalization [facility] Other InstructionsNot on filedocumented in this encounter [facility] Syncbak SystemInstructionsNot on filedocumented in this encounter [facility] SystemReason for referral (narrative)* Diagnostic Procedure Only (Routine) - ClosedSpecialtyDiagnoses / ProceduresReferred By Contact Referred To ContactCT IMAGING Diagnoses Carotid artery aneurysm (HCC) History of acute pancreatitis Procedures CTA NECK W IVCON CTA NECK, W/WO C, W/3D Rickie Naqvi DO [address] [place] [address] [address] [facility] [place] [address] Referral IDStatusReasonStart DateExpiration DateVisits RequestedVisits [id number] Auto-Generated Referral / * Diagnostic Procedure Only (Routine) - ClosedSpecialtyDiagnoses / Procedures Referred By ContactReferred To ContactCT IMAGING Diagnoses Family history of ischemic heart disease and other diseases of the circulatory system History of acute pancreatitis Procedures CTA HEAD WO/W IVCON CTA HEAD WWO C, W/3D Rickie Naqvi DO [address] [place] [address] [place] [address] Referral IDStatusReasonStart DateExpiration DateVisits RequestedVisits [id number] Auto-Generated Referral / [facility] for referral (narrative)* Outpatient Procedure (Routine) - ClosedSpecialtyDiagnoses / ProceduresReferred By ContactReferred To Contact [facility] Diagnoses Chronic recurrent pancreatitis (HCC) Procedures EGD - THERAPEUTIC, EUS, OR TUBE INTERVENTIONS EDG US EXAM SURGICAL ALTER STOM DUODENUM/[place] [address] [place] [address] [facility] [place] [id number] Referral IDStatusReasonStfort worth DateExpiration DateVisits RequestedVisits [id number] Auto-Generated Referral [facility] for referral (narrative)* Outpatient Procedure (Routine) - AuthorizedSpecialtyDiagnoses / ProceduresReferred By ContactReferred To ContactLAKE COUNTY [facility]AT Diagnoses Other supraventricular tachycardia (HCC) Palpitations Procedures ECHO ECHO TTHRC R-T 2D W/WOM-MODE COMPL SPEC&[place] [address] [facility] [place] [address] [facility] [place] [address] [place] [address] Referral IDStatusReasonStfort worth DateExpiration DateVisits RequestedVisits [id number] Auto-Generated Referral / [facility] for referral (narrative)* Diagnostic Procedure Only (Routine) - AuthorizedSpecialtyDiagnoses / ProceduresReferred By Contact Referred To ContactMOLECULAR & FUNCTIONAL IMAGING Diagnoses Upper abdominal pain Dyspepsia and disorder of function of stomach Dyspepsia Procedures NM GASTRIC EMPTYING SOLID GASTRIC EMPTYING STUDY Dara Butler Jr., DO [address] [place] [address] Molecular [facility] [address] [place] [address] Referral IDStatusReasonStart DateExpiration DateVisits RequestedVisits [id number] Auto-Generated Referral * Diagnostic Procedure Only (Routine) - Pending ReviewSpecialtyDiagnoses / ProceduresReferred By ContactReferred To ContactXR IMAGING Diagnoses Upper abdominal pain Dyspepsia and disorder of function of stomach Procedures XR UPPER GI SINGLE CONTRAST RADIOLOGIC EXAM UPR GI TRC SINGLE CONTRAST STUDY Dara Butler Jr., DO [address] [place] [address] [facility] [place] [address] Referral IDStatusReasonStfort worth DateExpiration DateVisits RequestedVisits [id number] Review Auto-Generated Referral [facility] for referral (narrative)* Diagnostic Procedure Only (Routine) - ClosedSpecialtyDiagnoses / ProceduresReferred By ContactReferred To ContactMOLECULAR & FUNCTIONAL IMAGING Diagnoses Upper abdominal pain Dyspepsia and disorder of function of stomach Dyspepsia Procedures NM GASTRIC EMPTYING SOLID GASTRIC EMPTYING STUDY Dara Butler Jr., DO [address] [place] [address] Molecular [facility] Functional Imaging [address] [place], [place] [id number] Referral IDStatusReasonStart DateExpiration DateVisits RequestedVisits [id number] Auto-Generated Referral [facility] for referral (narrative)* Diagnostic Procedure Only (Routine) - ClosedSpecialtyDiagnoses / ProceduresReferred By ContactReferred To ContactXR IMAGING Diagnoses Upper abdominal pain Dyspepsia and disorder of function of stomach Procedures XR UPPER GI SINGLE CONTRAST RADIOLOGIC EXAM UPR GI TRC SINGLE CONTRAST STUDY Dara Butler Jr., DO [address] [place] [address] [place] [address] Referral IDStatusReasonP[place] DateExpiration DateVisits RequestedVisits [id number] Auto-Generated Referral / [facility] for referral (narrative)* Consultation (Routine) - AuthorizedSpecialtyDiagnoses / ProceduresReferred By ContactReferred To ContactPain Medicine Diagnoses Median arcuate ligament syndrome (CMS-HCC) [place] [address] [employer] [place] [address] [place] [address] Paula Pretty MD [address] [place] [address] [place] [address] Referral IDStatusReasonStfort worth DateExpiration DateVisits RequestedVisits [id number] Specialty Services Required * Consultation (Routine) - AuthorizedSpecialtyDiagnoses / ProceduresReferred By ContactReferred To ContactGeneral Surgery Diagnoses Median arcuate ligament syndrome (CMS-[place]CC) [place] [address] [place] [address] Whitney Ambriz MD MPH [address] [facility], [place] [address] [place] [address] Referral IDStatusReasonStart DateExpiration DateVisits RequestedVisits [id number] Specialty Services Required / [facility] Work Phone: Retktu for visit Narrative* Diagnostic Procedure Only (Routine) - ClosedSpecialtyDiagnoses / ProceduresReferred By ContactReferred To ContactCT IMAGING Diagnoses Carotid artery aneurysm (HCC) History of acute pancreatitis Procedures CTA NECK W IVCON CTA NECK, W/WO C, W/3D Rickie Naqvi DO [address] [place] [address] Ct [facility]95 Referral IDStatusReasonStfort worth DateExpiration DateVisits RequestedVisits [id number] Auto-Generated Referral / [facility] for visit Narrative* Outpatient Procedure (Routine) - ClosedSpecialtyDiagnoses / ProceduresReferred By ContactReferred To Contact [facility] Diagnoses Chronic recurrent pancreatitis (HCC) Procedures EGD - THERAPEUTIC, EUS, OR TUBE INTERVENTIONS EDG US EXAM SURGICAL ALTER STOM DUODENUM/[place] [address] [place] [address] [facility] [address] [place] [address] Referral IDStatusReasonStart DateExpiration DateVisits RequestedVisits [id number] Auto-Generated Referral / [facility] for visit Narrative* Diagnostic Procedure Only (Routine) - ClosedSpecialtyDiagnoses / ProceduresReferred By ContactReferred To Contact MOLECULAR & FUNCTIONAL IMAGING Diagnoses Upper abdominal pain Dyspepsia and disorder of function of stomach Dyspepsia Procedures NM GASTRIC EMPTYING SOLID GASTRIC EMPTYING STUDY Dara Butler Jr., DO [address] [place] [address] Molecular [facility] Functional Imaging [address] [place] [address] Referral IDStatusReasonStart DateExpiration DateVisits RequestedVisits [id number] Auto-Generated Referral / [facility] for visit Narrative* Diagnostic Procedure Only (Routine) - ClosedSpecialtyDiagnoses / ProceduresReferred By ContactReferred To Contact XR IMAGING Diagnoses Upper abdominal pain Dyspepsia and disorder of function of stomach Procedures XR UPPER GI SINGLE CONTRAST RADIOLOGIC EXAM UPR GI TRC SINGLE CONTRAST STUDY Dara Butler Jr., DO [address] [place] [address] [place] [address] Referral IDStatusReasonStfort worth DateExpiration DateVisits RequestedVisits [id number] Auto-Generated Referral / [facility] for visit Narrative* Consultation (Routine) - Authorized SpecialtyDiagnoses / ProceduresReferred By ContactReferred To ContactGeneral Surgery Diagnoses Median arcuate ligament syndrome (CMS-HCC) [place] [address] [address] Whitney Ambriz MD MPH [address] [facility], [place] [address] [place] [address] Referral IDStatusReasonStfort worth DateExpiration DateVisits RequestedVisits [id number] Specialty Services Required / [facility] Work Phone: [facility] for visit Narrative* Outpatient Procedure (Routine) - ClosedSpecialtyDiagnoses / ProceduresReferred By ContactReferred To ContactDIGESTIVE DISEASE INSTITUTE Diagnoses Generalized abdominal pain Change in bowel habits Procedures COLONOSCOPY DIAGNOSTIC COLONOSCOPY FLX DX W/COLLJ SPEC WHEN PFDara Hagan Jr., DO [address] [place] [address] Phone: tel: fax: [facility] [address] [place] [address] Referral IDStatusReU[facility] DateExpiration DateVisits RequestedVisits [id number] Auto-Generated Referral [facility] for visit Narrative* Endoscopy (Routine) - Authorized SpecialtyDiagnoses / ProceduresReferred By ContactReferred To Contact Gastroenterology Diagnoses Median arcuate ligament syndrome Procedures Esophagogastroduodenoscopy (EGD) [place] ESOPHAGOGASTRODUODENOSCOPY TRANSORAL DIAGNOSTIC [place] EGD TRANSORAL BIOPSY SINGLE/MULTIPLE Whitney Ambriz MD MPH [address] [place] [address] Phone: tel: fax: Referral IDStatusReasonStfort worth DateExpiration DateVisits RequestedVisits [id number]/15/20248/15/202511 [facility] Work Phone: Summary Purpose Family History [...] TRANSORAL BIOPSY SINGLE/MULTIPLE Whitney Ambriz MD MPH [address] [place] [address] Referral IDStatusReasonStart DateExpiration DateVisits RequestedVisits [id number]/15/20248/048063VfghntwajDtsatjkvq / Procedures Referred By ContactReferred To ContactCT IMAGING Diagnoses Generalized abdominal pain RUQ pain Chronic recurrent pancreatitis (HCC) Diarrhea, unspecified type Procedures CTA ABD/PEL W IVCON CT ANGIO ABD&PLVIS CNTRST MTRL W/[place] [address] [place] [address] [place] [address] Referral IDStatusReasonStart DateExpiration DateVisits RequestedVisits [id number] Auto-Generated Referral [id number] / ProceduresReferred By ContactReferred To ContactMR IMAGING Diagnoses Chronic recurrent pancreatitis (HCC) Procedures MRI ABDOMEN WO/W IVCON MRI ABDOMEN W/O & W/CONTRAST MATERIAL Dara Butler Jr., DO [address] [facility] [place] [address] [place] [address] Referral IDStatusReasonP[place] DateExpiration DateVisits RequestedVisits [id number] Auto-Generated Referral /[id number] / ProceduresReferred By ContactReferred To ContactGastroenterology Diagnoses Generalized abdominal pain Procedures CONSULT TO GASTROENTEROLOGY OFFICE/OUTPATIENT [facility] 60-74 MINUTES Nae Ibarra MD [address] [place] [address] Referral IDStatusReasonStart DateExpiration DateVisits RequestedVisits [id number] PCP Requested Referral /[id number] / ProceduresReferred By ContactReferred To Contact Diagnoses Generalized abdominal pain Procedures CONSULT TO MEDICAL GENETICS - GENERAL OFFICE/OUTPATIENT [facility] 60-74 MINUTES MEDICAL GENETICS COUNSELING EACH 30 MINUTES Nae Ibarra MD [address] [place] [address] [employer] [facility] [address] [place] [address] Referral IDStatusReasonStart DateExpiration DateVisits RequestedVisits [id number] Review PCP Requested Referral Auto-Generated Referral / Reason Please schedule cons ult to evaluate and treat at [facility] (in [place]) for recurrent c.diff infection. (for possible fecal [...] section and content) DATE CREATED AUTHOR 09/15/2021 [facility] DATE CREATED AUTHOR AUTHOR'S ORGANIZ ATION 02/16/2022 [facility] DATE CREATED AUTHOR AUTHOR'S ORGANIZ ATION 03/18/2022 [facility] DATE CREATED AUTHOR AUTHOR'S ORGANIZ ATION 12/04/2022 [facility] DATE CREATED AUTHOR AUTHOR'S ORGANIZ ATION 04/26/2023 [facility] DATE CREATED AUTHOR AUTHOR'S ORGANIZ ATION 02/13/2024 [facility] DATE CREATED AUTHOR AUTHOR'S ORGANIZ ATION 07/17/2024 [facility] DATE CREATED AUTHOR AUTHOR'S ORGANIZ ATION 08/01/2024 [facility] DATE CREATED AUTHOR AUTHOR'S ORGANIZ ATION 08/06/2024 [facility] DATE CREATED AUTHOR AUTHOR'S ORGANIZ ATION 09/07/2024 [facility] DATE CREATED AUTHOR AUTHOR'S ORGANIZ ATION 03/25/2025 [facility] EPIC REASON FOR VISIT (unrecogniz ed section and content) ReasonCommentsNew PatientSpecialtyDiagnoses / ProceduresReferred By Contact Referred To ContactGastroenterology Diagnoses C. difficile diarrhea Jaya Parikh MD [address] [place] [address] Referral IDStatusReasonStart DateExpiration DateVisits RequestedVisits [id number] Review/[id number]h Pain SpecialtyDiagnoses / ProceduresReferred By ContactReferred To Contact Gastroenterology Diagnoses Generalized abdominal pain Procedures CONSULT TO GASTROENTEROLOGY OFFICE/OUTPATIENT [facility] 60-74 MINUTES Nae Ibarra MD [address] [place] [address] Referral IDStatusReasonStart DateExpiration DateVisits RequestedVisits [id number] PCP Requested Referral /[id number]njjObvkcibxJPTR REMINDERAPPT REMINDER CALL, LEFT MESSAGE REGARDING DIRECTIONS TO OFFICE AND # IN NEED TO CANCELReason CommentsFollow UpReasonCommentsRecheckReasonCommentsScansReasonCommentsPatient UpdateReasonCommentsConsultSpecialtyDiagnoses / ProceduresReferred By Contact Referred To ContactCardiology Diagnoses Other supraventricular tachycardia (HCC) Procedures CONSULT TO CARDIOLOGY OFFICE/OUTPATIENT [facility] 60 [place] [address] [place] [id number] Referral IDStatusReasonStart DateExpiration DateVisits RequestedVisits [id number] PCP Requested Referral /[id number] ClearanceReasonCommentsPalpitationsED pt updateReasonCommentsPatient QuestionPVCs and Frequent ED visits.Reason CommentsAnesthesia ConsultCholecystitisReasonCommentsPre-Op ExamReasonComments Post Op Follow Up11/21/23 lap choleReasonOnset DateCommentsRefill Request 4ReasonCommentsRadiology NMReasonCommentsConsultReasonCommentsBack Pain SpecialtyDiagnoses / ProceduresReferred By ContactReferred To ContactMR IMAGING Diagnoses Chronic recurrent pancreatitis (HCC) Procedures MRI ABDOMEN WO/W IVCON MRI ABDOMEN W/O & W/CONTRAST MATERIAL Dara Butler Jr., DO [address] [place] [address] [facility]95 Referral IDStatusReasonStfort worth DateExpiration DateVisits RequestedVisits [id number] Auto-Generated Referral /[id number]nJu need for OV with Dr. De La Paz CommentsSchedule InjectionReasonCommentsAppointmentReasonCommentsSuspicious Skin LesionReasonCommentsNew Patient VisitC/o of stomach pain, nausea and diarrhea since age 15. Is able to eat a full meal.ReasonCommentsfollow up miscarriage SpecialtyDiagnoses / ProceduresReferred By ContactReferred To Contact Gastroenterology Diagnoses Median arcuate ligament syndrome (CMS-HCC) Procedures Esophagogastroduodenoscopy (EGD) [place] ESOPHAGOGASTRODUODENOSCOPY TRANSORAL DIAGNOSTIC [place] EGD TRANSORAL BIOPSY SINGLE/MULTIPLE Whitney Ambriz [place] MPH [address] [place] [address] Referral IDStatusReasonStart DateExpiration DateVisits RequestedVisits [id number]/15/20248/15/147139PqsmpdCdppgikyWewtkt UpFollow-up on everything.ReasonCommentsPost-opPost op laparoscopic appendectomy performed [facility]01[facility] [facility]mentsInfertilityPt present today to discuss fertility Source Comments (unrecognize d section and content) In the event this informatio n is protected by the Federal Confidentiality of Alcohol and Drug Abuse Patient Records regulations: The Federal rules restrict any use of the information to criminally investigate or prosecute any alcohol or drug abuse patient.[facility] CenterIn the event this information is protected by the Federal Confidentiality of Alcohol and Drug Abuse Patient Records regulations: The Federal rules restrict any use of the information to criminally investigate or prosecute any alcohol or drug abuse patient.[facility] CenterIn the event this information is protected by the Federal Confidentiality of Alcohol and Drug Abuse Patient Records regulations: The Federal rules restrict any use of the information to criminally investigate or prosecute any alcohol or drug abuse patient.[facility] CenterIn the event this information is protected by the Federal Confidentiality of Alcohol and Drug Abuse Patient Records regulations: The Federal rules restrict any use of the information to criminally investigate or prosecute any alcohol or drug abuse patient.[facility] CenterIn the event this information is protected by the Federal Confidentiality of Alcohol and Drug Abuse Patient Records regulations: The Federal rules restrict any use of the information to criminally investigate or prosecute any alcohol or drug abuse patient.[facility] CenterIn the event this information is protected by the Federal Confidentiality of Alcohol and Drug Abuse Patient Records regulations: The Federal rules restrict any use of the information to criminally investigate or prosecute any alcohol or drug abuse patient.[facility] CenterIn the event this information is protected by the Federal Confidentiality of Alcohol and Drug Abuse Patient Records regulations: The Federal rules restrict any use of the information to criminally investigate or prosecute any alcohol or drug abuse patient.[facility] CenterIn the event this information is protected by the Federal Confidentiality of Alcohol and Drug Abuse Patient Records regulations: The Federal rules restrict any use of the information to criminally investigate or prosecute any alcohol or drug abuse patient.[facility] CenterIn the event this information is protected by the Federal Confidentiality of Alcohol and Drug Abuse Patient Records regulations: The Federal rules restrict any use of the information to criminally investigate or prosecute any alcohol or drug abuse patient.[facility] CenterIn the event this information is protected by the Federal Confidentiality of Alcohol and Drug Abuse Patient Records regulations: The Federal rules restrict any use of the information to criminally investigate or prosecute any alcohol or drug abuse patient.[facility] CenterIn the event this information is protected by the Federal Confidentiality of Alcohol and Drug Abuse Patient Records regulations: The Federal rules restrict any use of the information to criminally investigate or prosecute any alcohol or drug abuse patient.[facility] CenterIn the event this information is protected by the Federal Confidentiality of Alcohol and Drug Abuse Patient Records regulations: The Federal rules restrict any use of the information to criminally investigate or prosecute any alcohol or drug abuse patient.[facility] CenterIn the event this information is protected by the Federal Confidentiality of Alcohol and Drug Abuse Patient Records regulations: The Federal rules restrict any use of the information to criminally investigate or prosecute any alcohol or drug abuse patient.[facility] CenterIn the event this information is protected by the Federal Confidentiality of Alcohol and Drug Abuse Patient Records regulations: The Federal rules restrict any use of the information to criminally investigate or prosecute any alcohol or drug abuse patient.[facility] CenterIn the event this information is protected by the Federal Confidentiality of Alcohol and Drug Abuse Patient Records regulations: The Federal rules restrict any use of the information to criminally investigate or prosecute any alcohol or drug abuse patient.[facility] CenterIn the event this information is protected by the Federal Confidentiality of Alcohol and Drug Abuse Patient Records regulations: The Federal rules restrict any use of the information to criminally investigate or prosecute any alcohol or drug abuse patient.[facility] CenterIn the event this information is protected by the Federal Confidentiality of Alcohol and Drug Abuse Patient Records regulations: The Federal rules restrict any use of the information to criminally investigate or prosecute any alcohol or drug abuse patient.[facility] CenterIn the event this information is protected by the Federal Confidentiality of Alcohol and Drug Abuse Patient Records regulations: The Federal rules restrict any use of the information to criminally investigate or prosecute any alcohol or drug abuse patient.[facility] CenterIn the event this information is protected by the Federal Confidentiality of Alcohol and Drug Abuse Patient Records regulations: The Federal rules restrict any use of the information to criminally investigate or prosecute any alcohol or drug abuse patient.[facility] CenterIn the event this information is protected by the Federal Confidentiality of Alcohol and Drug Abuse Patient Records regulations: The Federal rules restrict any use of the information to criminally investigate or prosecute any alcohol or drug abuse patient.[facility] CenterIn the event this information is protected by the Federal Confidentiality of Alcohol and Drug Abuse Patient Records regulations: The Federal rules restrict any use of the information to criminally investigate or prosecute any alcohol or drug abuse patient.[facility] CenterIn the event this information is protected by the Federal Confidentiality of Alcohol and Drug Abuse Patient Records regulations: The Federal rules restrict any use of the information to criminally investigate or prosecute any alcohol or drug abuse patient.[facility] CenterIn the event this information is protected by the Federal Confidentiality of Alcohol and Drug Abuse Patient Records regulations: The Federal rules restrict any use of the information to criminally investigate or prosecute any alcohol or drug abuse patient.[facility] CenterIn the event this information is protected by the Federal Confidentiality of Alcohol and Drug Abuse Patient Records regulations: The Federal rules restrict any use of the information to criminally investigate or prosecute any alcohol or drug abuse patient.[facility] CenterIn the event this information is protected by the Federal Confidentiality of Alcohol and Drug Abuse Patient Records regulations: The Federal rules restrict any use of the information to criminally investigate or prosecute any alcohol or drug abuse patient.[facility] CenterIn the event this information is protected by the Federal Confidentiality of Alcohol and Drug Abuse Patient Records regulations: The Federal rules restrict any use of the information to criminally investigate or prosecute any alcohol or drug abuse patient.[facility] CenterIn the event this information is protected by the Federal Confidentiality of Alcohol and Drug Abuse Patient Records regulations: The Federal rules restrict any use of the information to criminally investigate or prosecute any alcohol or drug abuse patient.[facility] CenterIn the event this information is protected by the Federal Confidentiality of Alcohol and Drug Abuse Patient Records regulations: The Federal rules restrict any use of the information to criminally investigate or prosecute any alcohol or drug abuse patient.[facility] CenterIn the event this information is protected by the Federal Confidentiality of Alcohol and Drug Abuse Patient Records regulations: The Federal rules restrict any use of the information to criminally investigate or prosecute any alcohol or drug abuse patient.[facility] CenterIn the event this information is protected by the Federal Confidentiality of Alcohol and Drug Abuse Patient Records regulations: The Federal rules restrict any use of the information to criminally investigate or prosecute any alcohol or drug abuse patient.[facility] CenterIn the event this information is protected by the Federal Confidentiality of Alcohol and Drug Abuse Patient Records regulations: The Federal rules restrict any use of the information to criminally investigate or prosecute any alcohol or drug abuse patient.[facility] CenterIn the event this information is protected by the Federal Confidentiality of Alcohol and Drug Abuse Patient Records regulations: The Federal rules restrict any use of the information to criminally investigate or prosecute any alcohol or drug abuse patient.[facility] CenterIn the event this information is protected by the Federal Confidentiality of Alcohol and Drug Abuse Patient Records regulations: The Federal rules restrict any use of the information to criminally investigate or prosecute any alcohol or drug abuse patient.[facility] CenterIn the event this information is protected by the Federal Confidentiality of Alcohol and Drug Abuse Patient Records regulations: The Federal rules restrict any use of the information to criminally investigate or prosecute any alcohol or drug abuse patient.[facility] CenterIn the event this information is protected by the Federal Confidentiality of Alcohol and Drug Abuse Patient Records regulations: The Federal rules restrict any use of the information to criminally investigate or prosecute any alcohol or drug abuse patient.[facility] CenterIn the event this information is protected by the Federal Confidentiality of Alcohol and Drug Abuse Patient Records regulations: The Federal rules restrict any use of the information to criminally investigate or prosecute any alcohol or drug abuse patient.[facility] CenterIn the event this information is protected by the Federal Confidentiality of Alcohol and Drug Abuse Patient Records regulations: The Federal rules restrict any use of the information to criminally investigate or prosecute any alcohol or drug abuse patient.[facility] CenterIn the event this information is protected by the Federal Confidentiality of Alcohol and Drug Abuse Patient Records regulations: The Federal rules restrict any use of the information to criminally investigate or prosecute any alcohol or drug abuse patient.[facility] CenterIn the event this information is protected by the Federal Confidentiality of Alcohol and Drug Abuse Patient Records regulations: The Federal rules restrict any use of the information to criminally investigate or prosecute any alcohol or drug abuse patient.[facility] CenterIn the event this information is protected by the Federal Confidentiality of Alcohol and Drug Abuse Patient Records regulations: The Federal rules restrict any use of the information to criminally investigate or prosecute any alcohol or drug abuse patient.[facility] CenterIn the event this information is protected by the Federal Confidentiality of Alcohol and Drug Abuse Patient Records regulations: The Federal rules restrict any use of the information to criminally investigate or prosecute any alcohol or drug abuse patient.[facility] CenterIn the event this information is protected by the Federal Confidentiality of Alcohol and Drug Abuse Patient Records regulations: The Federal rules restrict any use of the information to criminally investigate or prosecute any alcohol or drug abuse patient.[facility] the event this information is protected by the Federal Confidentiality of Alcohol and Drug Abuse Patient Records regulations: The Federal rules restrict any use of the information to criminally investigate or prosecute any alcohol or drug abuse patient.[facility] CenterIn the event this information is protected by the Federal Confidentiality of Alcohol and Drug Abuse Patient Records regulations: The Federal rules restrict any use of the information to criminally investigate or prosecute any alcohol or drug abuse patient.[facility] CenterIn the event this information is protected by [...] or prosecute any alcohol or drug abuse patient.[facility] CenterIn the event this information is protected by the Federal Confidentiality of Alcohol and Drug Abuse Patient Records regulations: The Federal rules restrict any use of the information to criminally investigate or prosecute any alcohol or drug abuse patient.[facility] Care Teams (unrecognized sec tion and content) [...] DateEnd Date Gabino Owen MD PCP - [facility] Medicine11/10/20Team MemberRelationshipSpecialtyStart DateEnd Date Gabino Owen MD PCP - [facility] Medicine11/10/20Team MemberRelationshipSpecialtyStart DateEnd Date Gabino Owen MD PCP - [facility] Medicine11/10/20 Team Status: Inactive Member Role Status Dates Analia Holliday , DAVID Primary Care Provider, Attending Provider Active Team MemberRelationshipSpecialtyStart DateEnd Date Analia Holliday, INSULATION WORKER INTERIOR SURFACE [address] [place] [address] [facility] Maxqmnol44/15/23Team MemberRelationshipSpecialtyStart Date End Date Analia Holliday, INSULATION WORKER INTERIOR SURFACE [address] [place] [address] PCP - [facility] Dqarjxgi88/15/23Team MemberRelationshipSpecialtyStart Date End Date Analia Holliday, INSULATION WORKER INTERIOR SURFACE [address] [place] [address] PCP - Generalmily Rmlpzblk77/15/23Team MemberRelationshipSpecialtyStart Date End Date Analia Holliday, INSULATION WORKER INTERIOR SURFACE [address] [place] [address] [facility] - [facility] Fssklmvw60/15/23Team MemberRelationshipSpecialtyStart Date End Date Analia Holliday, INSULATION WORKER INTERIOR SURFACE [address] [place] [address] PCP - [facility]06/06/23Team MemberRelationshipSpecialtyStart Date End Date Analia Holliday, INSULATION WORKER INTERIOR SURFACE [address] [place] [address] PCP - [facility] Jlxpzlge14/15/23am MemberRelationshipSpecialtyStart Date End Date Analia Holliday, INSULATION WORKER INTERIOR SURFACE [address] [place] [address] PCP - [facility] Ennzcvsb51/15/23am MemberRelationshipSpecialtyStart Date End Date Analia Holliday, INSULATION WORKER INTERIOR SURFACE [address] [place] [address] PCP - [facility] Zlfrunog45/15/23Team MemberRelationshipSpecialtyStart Date End Date Analia Holliday, INSULATION WORKER INTERIOR SURFACE [address] [place] [address] [facility] Qrjehhmb22/15/23Team MemberRelationshipSpecialtyStart Date End Date Analia Holliday, INSULATION WORKER INTERIOR SURFACE [address] [place] [address] PCP - [facility]06/06/23Team MemberRelationshipSpecialtyStart Date End Date Analia Holliday, INSULATION WORKER INTERIOR SURFACE [address] [place] [address] PCP [facility]06/06/23Team MemberRelationshipSpecialtyStart Date End Date Analia Holliday, INSULATION WORKER INTERIOR SURFACE [address] [place] [address] [facility]06/06/23Team MemberRelationshipSpecialtyStart Date End Date Analia Holliday, INSULATION WORKER INTERIOR SURFACE [address] [place] [address] [facility]06/06/23 Team Status: Active Member Role Status Dates Analia Hloliday DNP Primary Care Provider Active Start: December 27, 2023 Dara Butler DOAttending ProviderActiveStart: December 27, 2023 Team Status: Inactive Member Role Status Dates Ana Bolton DO Attending Provider Active Start: January 01, 2024 End: January 01, 2024Team MemberRelationshipSpecialtyStart DateEnd Date Analia Holliday, INSULATION WORKER INTERIOR SURFACE [address] [place] [address] [facility]06/06/23 Team Status: Active Member Role Status Dates Analia Dennis APRN [employer] Primary Care Provider Active Team Status: Inactive Member Role Status Dates Analia Dennis APRN [employer] Primary Care Provider, Attending Provider Active Start: March 19, 2024 End: March 19, 2024Team MemberRelationshipSpecialtyStart DateEnd Date Analia Holliday, INSULATION WORKER INTERIOR SURFACE [address] [place] [address] PCP - GeneralFamily Fpivuzjl45/15/23Team MemberRelationshipSpecialtyStart Date End Date Gabino Owen MD PCP - GeneralFamily Medicine11/10/2110/Team MemberRelationshipSpecialtyStart DateEnd Date Analia Holliday, INSULATION WORKER INTERIOR SURFACE [address] [place] [address] PCP - GeneralFamily Zzdvuzrw53/15/23Team MemberRelationshipSpecialtyStart Date End Date Analia Holliday, INSULATION WORKER INTERIOR SURFACE [address] [place] [address] PCP - GeneralFamily Mylryovf92/15/23Team MemberRelationshipSpecialtyStart Date End Date Analia Holliday, INSULATION WORKER INTERIOR SURFACE [address] [place] [address] PCP - GeneralFamily Sythzdwc23/15/23Team MemberRelationshipSpecialtyStart Date End Date Analia Holliday, INSULATION WORKER INTERIOR SURFACE [address] [place] [address] PCP - GeneralFamily Tueddvoj34/15/23Team MemberRelationshipSpecialtyStart Date End Date Jennifer Frazier MD [address] [place] [address] PCP - GeneralFamily Xxfxwylf07/20/24Team MemberRelationshipSpecialtyStart Date End Date Kyree Stinson MD [address] [place] [phone] (Fax) PCP - GeneralFamily Medicine12/13/22 Kyree Stinson MD [address] [place] [address] (Fax) PCP - [employer]11/20/22Team MemberRelationshipSpecialtyStart DateEnd Date Kyree Stinson MD [address] [place] [address] (Fax) PCP - GeneralFamily Medicine12/13/22 Kyree Stinson MD [address] [place] [address] [address] (Fax) PCP - [employer]11/20/22Team MemberRelationshipSpecialtyStart DateEnd Date Kyree Stinson MD [address] [place] [address] (Fax) PCP - GeneralFamily Medicine12/13/22 Kyree Stinson MD [address] [place] [address] (Fax) PCP - [employer]11/20/22Team MemberRelationshipSpecialtyStart DateEnd Date Jennifer Frazier MD [address] [place] [phone] PCP - GeneralFamily Aodvwkgw81/20/24Team MemberRelationshipSpecialtyStart Date End Date Kyree Stinson MD [address] [place] [address] (Fax) PCP - GeneralFamily Medicine12/13/22 Kyree Stinson MD [address] [place] [address] (Fax) PCP - [employer]11/20/22Team MemberRelationshipSpecialtyStart DateEnd Date Kyree Stinson MD [address] [facility] [address] [place] [address] (Fax) [facility] - [facility]12/13/22 Kyree Stinson MD [address] [facility] [address] [place] [address] (Fax) PCP - [facility]11/20/22Team MemberRelationshipSpecialtyStart DateEnd Date Jennifer Frazier MD [address] [place] [address] PCP - [facility] Uetswxpf34/20/24Team MemberRelationshipSpecialtyStart Date End Date Jennifer Frazier MD [address] [facility] [address] PCP - [facility]06/11/24 Team Status: Active Member Role Status Dates Analia Dennis APRN [employer] Attending Provider Act [place] Start: June 25, 2024 Wes Grey Care ProviderActiveStart: June 25, 2024 Team Status: Active Member Role Status Dates Hayley Jewell DO Primary Care Provider Active Start: June 27, 2024 Sridevi Chamberlain ProviderActiveStart: June 27, 2024 Team Status: Active Member Role Status Dates Analia Dennis APRN [employer] Attending Provider Act [place] Start: June 30, 2024 Wes Grey Care ProviderActiveStart: June 30, 2024 Team Status: Inactive Member Role Status Dates Analia Rohrbacher , HEEL SHAPER [employer] Primary Care Provider, Attending Provider Active Start: July 08, 2024 End: July 08, 2024 Team Status: Active Member Role Status Dates Analia Dennis APRN [employer] Primary Care Provider, Attending Provider Active Start: July 09, 2024 Team Status: Active Member Role Status Dates Analia Dennis APRN [employer] Primary Care Provider Active Start: July 112023 Marshall Bolden , DOAttending ProviderActiveStart: July 11, 2024 Team Status: Active Member Role Status Dates Analia Dennis APRN [employer] Primary Care Provider Active Start: July 142023 Shadia Encarnacion , CMAAttending ProviderActiveStart: July 14, 2024 Team Status: Active Member Role Status Dates Analia Dennis APRN [employer] Primary Care Provider Active Start: July 152023 Naebriana Hall ProviderActiveStart: July 15, 2024 Team Status: Inactive Member Role Status Dates Analia Dennis APRN [employer] Primary Care Provider, Attending Provider Active Start: July 24, 2024 End: July 24, 2024 Team Status: Inactive Member Role Status Dates Analia Dennis APRN [employer] Attending Provider Act [place] Start: July 24, 2024 End: July 24, 2024Team MemberRelationshipSpecialtyStart DateEnd Date Jennifer Frazier MD [address] [place] [phone] [facility] - [facility] Dpacjobv98/20/24Team MemberRelationshipSpecialtyStart Date End Date Jennifer Frazier MD [address] [place] [address] [facility] - [facility] Wiyyhshk00/20/24Team MemberRelationshipSpecialtyStart Date End Date Jennifer Frazier MD [address] [place] [address] PCP - GeneralFamily Uemovxyj39/20/24 Team Status: Inactive Member Role Status Dates Paula Alberts DO Attending Provider Active Sta rt: October 24, 2024 End: October 24, 2024Analia Dennis APRN [employer]-CPrimary Care ProviderActive Start: October 24, 2024 End: October 24, 2024 Team Status: Active Member Role Status Dates Analia Dennis APRN [employer] Primary Care Provider Active Start: November 04, 2024 Keanu Koo MDAttending ProviderActiveStart: November 04, 2024 Team Status: Active Member Role Status Dates Analia Dennis APRN [employer] Primary Care Provider Active Start: November 05, 2024 Sridevi Chamberlain ProviderActiveStart: November 05, 2024 Team Status: Inactive Member Role Status Dates Analia Dennis APRN [employer] Primary Care Provider, Attending Provider Active Start: November 12, 2024 End: November 12, 2024Team MemberRelationshipSpecialtyStart DateEnd Date Paula Alberts DO [address] [place] [address] PCP - GeneralInternal Medicine03/10/25Team MemberRelationshipSpecialtyStart Date End Date Paula Alberts DO [address] [place] [address] PCP - GeneralInternal Medicine03/10/25Team MemberRelationshipSpecialtyStart Date End Date Paula Alberts DO [address] [place] [address] PCP - GeneralInternal Medicine03/10/25 Goals [...] BE BASED ON THE PRIMARY CLINICAL RECORDS. [facility] [employer] [facility]. provides no warranty or guarantee of the accuracy or completeness of information in this document.
== END 2025-06-24 07:36 | disposition home or self-care (01) ==
LOC: LAB 07:39
PROVIDERS: PCP Nurse Practitioner Family; Visit Provider Obstetrics & Gynecology
DX: Z32.01 Encounter for pregnancy test, result positive (principal); E28.2 Polycystic ovarian syndrome; Z87.59 Personal history of other complications of pregnancy, childbirth and the puerperium
CPT/HCPCS: 36415; 84702

== ENCOUNTER 2025-06-27 07:11 | Outpatient (OUT) | payer BC, SELFPAY ==
--- OUTSIDE RECORDS SUMMARY | 2025-06-27 07:14 | XMS_ITS | CCD ---
Author Organization [facility] Care Team Providers Care Scenario Writer Name Role Phone Arlene Negro Unavailable Jaya [...] Unavailable MISC, DR HELLER Attending Unavailable JAYA PRAIKH Primary Care Unavailable MISC, DR HELLER Consulting [...] DIAB ., JAMIL Consulting Unavailable MISC, DR HELELR Admitting Unavailable MISC, DR HELLER Attending Unavailable HEMEYER ., DR MATA Primary Care Unavailable OLD STATION, DR DARA Ledezma Consulting Unavailable MISC, DR [...] Care Provider DO Ana Bolton Attending Provider [phone] 11-2023 KAPLE, ANALIA M Primary Care Unavailable MILAGROS [...] Unavailable Gabino Owen MD Primary Care Provider [phone] Jennifer Frazier MD Primary Care Provider Kyree Stinson MD Primary Care Provider Kyree Stinson MD Unavailable [phone] Unavailable Primary Care Provider UnavailSEEMA Peña Referring [...] TypeDate of OnsetReaction(s) FacilityNitroimidazoles (antibiotic) (1 source)metroNIDAZOLEDrug Nhvupsg04-29-6814Uvscdt Status Change, Diarrhea, GI Upset, Hives, Other: See Comments, Rash, Shortness of Breath, Unknown, Vomiting [facility] (20 sources)metroNIDAZOLE; Translations: [METRONIDAZOLE]Drug Lnggjsh47-58-8702 Mental Status Change, Diarrhea, GI Upset, Hives, Other: See Comments, Rash, Shortness [facility] Breath, Unknown, [facility] ([facility] source)metroNIDAZOLEDrug Qbsrvpo03-85-2763TyvHol[facility] (8 sources)VancomycinDrug AllergyExcelsior Springs Medical Center Collect.it Other (1 source)metroNIDAZOLEDrug Thnqvas62-36-0502TvawbbwnkSelect [facility] (1 source)VancomycinDrug Uoxybtb24-96-1127EgcqyueliSelect Medical Specialty [facility] Medications Current Medications MedicationDrug Class(es)DatesSig (Normalized)Sig (Original)cholecalciferol, vitamin D3, (VITAMIN D3 ORAL) (2 sources)take 1 tablet by mouth in the morningcholecalciferol, vitamin D3, (VITAMIN D3 ORAL) Take 1 tablet by mouth in the morning. Activecolestipol hydrochloride 1000 mg oral tablet (2 sources)Bile Acid SequestrantStart: 09-05-2024 End: 11-66-6042wpmg 2 tablets by mouth once dailycolestipol (COLESTID) 1 gram tablet Take 2 tablets by mouth once daily. 60 tablet 2 09/09/2024 12/08/2024 Activedicyclomine hydrochloride 20 mg oral tablet (20 sources)AnticholinergicStart: 03-14-2024 End: 32-75-7216nfql 1 tablet by mouth twice dailydicyclomine (BENTYL) 20 mg tablet Take 1 tablet by mouth two times a day. 60 tablet 2 03/14/2024 06/12/2024 ActiveStart: 73-95-6194xznv 1 capsule by mouth every twenty-four hours as neededdicyclomine (Bentyl) 10 mg capsule Take 1 capsule (10 mg) by mouth once daily as needed. 11/29/2023ctiveStart: 34-80-1174hnuf 1 capsule by mouth three times daily as neededDicyclomine 10 mg capsule Active 10 MG PO Three times daily as needed November 29, 2023 12:00am FreeTextSig: TAKE 1 CAPSULE BY MOUTH 3 TIMES A DAY NEEDED; Note: Source Status: Taking; Refills: 3; Qty:90 Capsule; Provider: Dereje Schaefer ( )Start: 11-22-2022 End: 07-87-4727nqng 1 capsule by mouth every eight hours as neededdicyclomine (BENTYL) 10 mg capsule Take 10 mg by mouth three times daily as needed. 0 11/22/2022 02/06/2023 DiscontinuedStart: 03-15-2022 End: 58-80-6024ahtl 1 tablet by mouth every eight hoursdicyclomine (BENTYL) 20 mg tablet Take 1 tablet by mouth q 8 HR. 0 03/15/2022 ActiveComment on above: Take 10 mg by mouth three times daily as needed.Take 1 tablet by mouth q 8 HR. escitalopram 10 mg oral tablet (20 sources)Serotonin Reuptake InhibitorStart: 03-19-2024 End: 86-76-9607iepy 1 tablet by mouth once dailyEscitalopram Oxalate 10 mg tablet Active 10 MG PO Daily 90 October 27, 2024 11:27amStart: 01-16-2024 End: 11-34-8765hwrt 1 tablet by mouth once dailyEscitalopram Oxalate 5 mg tablet Discontinued 5 MG PO Daily 90 January 16, 2024 12:00am March 19, 2024 1:45pmStart: 79-26-8816lbrc 0.5 tablet by mouth once dailyescitalopram (Lexapro) 10 mg tablet Take 0.5 tablets (5 mg) by mouth once daily. 11/29/2023 Active Start: 11-29-2023 End: 23-02-7117wpgi 1 tablet by mouth once dailyEscitalopram Oxalate Discontinued 5 MG PO Daily November 29, 2023 11:36am January 16, 2024 10:59pm FreeTe xtSi tablet Orally Once a day; Note: Source Status: Taking; Provider: Miya Helms ( )Start: 11-29-2023 End: 55-89-6822oyrx 1 tablet by mouth once dailyEscitalopram Oxalate [...] 200 mg oral tablet (8 sources)Macrolide AntibacterialStart: 95-30-7660tcrz 1 tablet by mouth every twelve hoursDificid 200 MG 1 tablet Orally Twice a day for 10 days Mar, Activetake 1 tablet by mouth every twelve hoursDificid 200 MG 1 tablet Orally Twice a day PT PICKS THE SCRIPT TODAY Activegabapentin 100 mg oral capsule (10 sources)Anti-epileptic AgentStart: 04-30-2024 End: 41-56-9968xbva 1 tablet by mouth once daily at [...] disintegrating oral tablet (20 sources)Serotonin-3 Receptor AntagonistStart: 26-85-9883Bcacgmtfxdc 4 mg tablet,disintegrating Active 4 MG PO as needed November 12, 2024 12:00amStart: 06-36-8014dntkafyqxld (ZOFRAN) 4 mg tablet Take 4 mg by mouth as needed. 09/01/2022 ActiveComment on above:Take 4 mg by mouth as needed.predniSONE 20 mg oral tablet (13 sources)Start: 04-04-2023 End: 21-03-2558dyxl 1 tablet by mouth once dailypredniSONE (DELTASONE) 20 mg tablet Take 1 tablet by mouth once daily for 10 days. 10 tablet 0 04/04/2023 04/14/2023 ActiveStart: 03-13-2023 End: 18-15-8352ecgi 1 tablet by mouth once dailypredniSONE (DELTASONE) 20 mg tablet Take 1 tablet by mouth once daily for 14 days. 14 tablet 0 03/13/2023 03/27/2023 ActiveStart: 10-31-2020 End: 35-30-4222oxid 1 tablet by mouth once daily at mealtimePrednisone 50 mg tablet Discontinued 50 MG PO Daily 5 October 31, 2020 12:00am November 29, 2023 11:18am administer with food or milkComment on above:Take 1 tablet by mouth once daily for 14 days.Take 1 tablet by mouth once daily for 10 days.vancomycin 125 mg oral capsule (2 sources)Glycopeptide AntibacterialStart: 07-14-2024 End: 29-91-5872sati 1 capsule by mouth three times dailyvancomycin (VANCOCIN) 125 mg capsule Indications: Clostridium difficile infection Take 1 capsule by mouth three times a day for 10 days. 30 capsule 07/14/2024 07/24/2024 Active Completed/Discontinued Medications MedicationDrug Class(es)DatesSig (Normalized)Sig (Original)amitriptyline hydrochloride 25 mg oral tablet (20 sources)Tricyclic AntidepressantStart: 12-28-2023 End: 16-05-3905goux 1 tablet by mouth once daily at bedtimeamitriptyline (ELAVIL) 25 mg tablet take 1 tablet by mouth everyday at bedtime 90 tablet 1 03/25/2024 04/30/2024 DiscontinuedStart: 05-22-2023 End: 19-13-0103bzln 1 tablet by mouth once daily at bedtimeamitriptyline (ELAVIL) 25 mg tablet Take 1 tablet by mouth daily at bedtime. 30 tablet 0 Discontinued (Discontinued by Patient)Comment on above:Take 1 tablet by mouth daily at bedtime.amylase 653496 unt / lipase 09282 unt / protease 65158 unt delayed release oral capsule (16 sources)Start: 06-06-2023 End: 07-61-7706ouuk 2 capsules by mouth twice daily at mealtime svwesd-zviypiot-cutrzbt (CREON) 24,000-76,000 -120,000 unit delayed release capsule Take 2 capsulesby mouth two times a day with meals. 120 capsule 0 06/06/2023 10/22/2023 DiscontinuedStart: 02-06-2023 End: 55-36-4661qmxk 1 capsule by mouth three times daily at mealtime kozqgh-xeildegy-oldicli (ZENPEP) 40,000-126,000- 168,000 unit delayed release capsule [...] oral capsule (8 sources)Anticholinergic, BenzodiazepineStart: 03-13-2023 End: 65-22-8628phmv 1 capsule by mouth three times daily [...] oral capsule (8 sources)Vitamin DStart: 11-29-2023 End: 27-35-2714yjkr 1 capsule by mouth once dailyCholecalciferol (Vitamin D3) 50 mcg (2,000 unit) capsule Discontinued 2000 UNIT PO Daily November 29, 2023 12:00am March 19, 2024 1:34pm FreeTextSi capsule Orally Once a day; Note: Source Status: Start; Refills: 4; Provider: Miya Helms MStart: 03-08-5670stbh 1 capsule by mouth every twenty-four hoursVitamin D3 50 MCG (2000 UT) 1 capsule Orally Once a day for 30 days May, Activecyclobenzaprine hydrochloride 10 mg oral tablet (8 sources)Muscle RelaxantStart: 10-31-2020 End: 28-02-3893oqok 1 tablet by mouth three times daily as needed for muscle spasmsCyclobenzaprine 10 mg tablet Discontinued 10 MG PO Three times daily as needed for muscle spasm October 31, 2020 12:00am March 19, 2024 1:35pm diclofenac sodium 50 mg delayed release oral tablet (8 sources)Nonsteroidal Anti-inflammatory DrugStart: 10-31-2020 End: 10-50-3769egib 1 tablet by mouth every twelve hours as needed for pain Diclofenac Sodium 50 mg tablet,delayed release (DR/EC) Discontinued 50 MG PO Q12H as needed for pain October 31, 2020 12:00am November 29, 2023 11:18am ergocalciferol 1.25 mg oral capsule (10 sources)Provitamin D2 CompoundStart: 12-14-2022 End: 01-04-5736dsbbalshrxtiww 50,000 unit capsule (VITAMIN D2, DRISDOL) Indications: [...] mg oral tablet (8 sources)AntihistamineStart: 10-31-2020 End: 09-52-9623ajbw 1 tablet by mouth every six hours as needed for anxiety Hydroxyzine Hcl 25 mg tablet Discontinued 25 MG PO Q6H as needed for anxiety October 31, 2020 12:00am March 19, 2024 1:35pm12 hr hyoscyamine sulfate 0.375 mg extended release oral tablet (5 sources)Start: 12-12-2023 End: 47-56-1604jzct 1 tablet by mouth twice dailyhyoscyamine SR (LEVBID) 0.375 mg 12 hr tablet Take 1 tablet by mouth two times a day. 60 tablet 2 12/13/2023 12/28/2023 DiscontinuedStart: 02-06-2023 End: 47-59-2479vgfr 1 tablet by mouth twice dailyhyoscyamine SR (LEVBID) 0.375 mg 12 hr tablet Indications: Generalized abdominal pain , Chronic pancreatitis, unspecified pancreatitis type (HCC) , Intestinal malabsorption, unspecified type Take 1 tablet by mouth twice daily. 60 tablet 2 02/06/2023 05/07/2023 Active Comment on above:Take 1 tablet by mouth twice daily.iv contrast (will be provided with radiology test) (2 sources)Start: 06-13-2023 End: 66-15-7571sasgne 1 dose intravenously onceiv contrast (will be [...] Each 0 06/13/2023 06/14/2023 ExpiredStart: 03-16-2023 End: 10-05-8397xw contrast (will be provided with radiology test) [...] (8 sources)Antiarrhythmic, Amide Local AnestheticStart: 10-31-2020 End: 86-14-6744eyxvu 1 dose topically once daily as needed for painLidocaine 5 % adhesive patch,medicated Discontinued 1 PATCH TOPICAL Daily as needed for pain October 31, 2020 12:00am November 29, 2023 11:18am leave on most painful area for up to 12 hrspantoprazole 40 mg delayed release oral tablet (10 sources)Proton Pump InhibitorStart: 01-22-2024 End: 96-47-2984kmtx 1 tablet by mouth once dailypantoprazole DR (PROTONIX) 40 mg tablet TAKE 1 TABLET BY MOUTH EVERY DAY 90 tablet 1 01/22/2024 04/30/2024 DiscontinuedStart: 62-92-6140sxvi 1 tablet by mouth once dailypantoprazole DR (PROTONIX) 40 mg tablet Take 1 tablet by mouth once daily. 30 tablet 2 12/28/2023 ActiveProgesterone 200 MG suppository (6 sources)Start: 06-23-2024 End: 31-22-5148Zidhmefgqffv 200 MG suppository Indications: History of miscarriage Insert 200 mg into the vagina at bedtime Insert suppository vaginally every night at bedtime until 12 weeks gestation 30 suppository 3 06/23/2024 07/03/2024 DiscontinuedStart: 06-23-2024 End: 96-75-9627Sqplxmbparip 200 MG suppository Indications: History of miscarriage Insert 200 mg into the vagina at bedtime Insert suppository vaginally every night at bedtime until 12 weeks gestation 30 suppository 3 06/23/2024 07/23/2024 Fophlv4615 ml sodium chloride 9 mg/ml injection (1 source)Start: 09-03-2024 End: 02-44-0848yifv 30 mL intravenously every hour30 mL/hr, INTRAVENOUS, CONTINUOUS, Starting on Sun09/03/24 at 1030, Until Ami 09/04/24 at 0420, Prepr oceduresucralfate 1000 mg oral tablet (2 sources)Aluminum ComplexStart: 12-24-2023 End: 15-84-4372kwyf 1 tablet by mouth three times dailysucralfate (CARAFATE) 1 gram tablet Take 1 tablet by mouth three times a day. 90 tablet 2 12/24/2023 12/28/2023 Discontinuedsulfamethoxazole 800 mg / trimethoprim 160 mg oral tablet (1 source)Dihydrofolate Reductase Inhibitor Antibacterial, Sulfonamide AntimicrobialStart: 10-24-2024 End: 99-68-1963qubz 1 tablet by mouth twice dailySulfamethoxazole-Trimethoprim 800-160 mg tablet Discontinued 1 TAB PO Twice daily 6 October 24, 2024 12:00am November 12, 2024 10:03am Problems Active Problems Problem ClassificationProblemDateDocumented DateEpisodic/ChronicAnxiety disorders (20 sources)Generalized anxiety disorder; Translations: [Generalized anxiety disorder]Onset: 35-28-5989PpudpjtDcnbxo; peripheral; and visceral artery aneurysms (1 source)Carotid artery aneurysm; Translations: [Aneurysm of carotid artery] 22-99-5195IrlqkdgNreaojo tract disease (1 source)Cholecystitis, unspecified; Translations: [Cholecystitis]Onset: 26-98-6920DrmeefgrKnauxur dysrhythmias (1 source)Supraventricular tachycardia; Translations: [Other supraventricular tachycardia (HCC)]58-97-3571VmmgixqWfckampnsdbcr and procreative management (2 sources)Patient encounter status; Translations: [Encounter for procreative management, unspecified]76-58-4378AmmlyeczCslrupfdmu disorders (9 sources)Gastroesophageal reflux disease; Translations: [Gastro-esophageal reflux disease without esophagitis]51-41-3238HkisbxrWztub valve disorders (4 sources)Heart murmur; Translations: [Cardiac murmur, unspecified]03-19-2024 EpisodicImmunizations and screening for infectious disease (4 sources)Contact with and (suspected) exposure to other viral communicable diseases; Translations: [Encounter for screening for human papillomavirus (HPV)] Onset: 05-05-2021 Resolved: 98-64-1037GbtzwppoDfcysor and fatigue (20 sources)Chronic fatigue, unspecified; Translations: [Fatigue]Onset: 10-75-5361SvpcuqxRoadwqrtw disorders (12 sources)Irregular menstruation, unspecified; Translations: [Disorder of menstruation]Onset: 240817-11-9037PsaynajMdlc disorders (4 sources)Depressive disorder; Translations: [Depression]Onset: 04-16-2024 80-90-9344AxzzprpFfwijfgaw of unspecified nature or uncertain behavior (2 sources)Neoplastic disease; Translations: [Neoplasm of unspecified behavior of bone, soft tissue, and skin]77-51-5698NdthiljbReanlcqvyvy deficiencies (13 sources)Vitamin D deficiency; Translations: [Vitamin D deficiency, unspecified]Onset: 45-66-4260BvhdttbLgfrkbbkhsp deficiencies (2 sources)Cobalamin deficiency; Translations: [Deficiency of other specified B group vitamins]Onset: 766905-02-1285WhcqatirPqnvi aftercare (1 source)Surgical follow-up; Translations: [Encounter for follow-up examination after completed treatment for conditions other than malignant neoplasm] 28-57-8158KbvfzqfeLqrrl aftercare (2 sources)H/O: miscarriage; Translations: [Encounter for other specified aftercare]75-02-8350DnladiutXvvmd aftercare (6 sources)H/O: high risk medication; Translations: [Other technician terminal and repeater (current) drug therapy]Onset: 528543-20-5837OciephzvRdhvz circulatory disease (7 sources)Celiac artery compression syndrome; 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]23-79-7928EslecveAgjwu connective tissue disease (8 sources)Pain in upper limb; Translations: [Pain in arm, unspecified] 49-25-8668GbagwjytIgxvi connective tissue disease (2 sources)Neuropathy; Translations: [Neuralgia and neuritis, unspecified] 86-14-1270OvumnzcdXoypy diseases of kidney and ureters (1 source)Cyst of kidney, acquired; Translations: [CYST OF KIDNEY ACQUIRED] Onset: 86-87-7397QwdcjwjjRtyvv disorders of stomach and duodenum (3 sources)Disorder of function of stomach; Translations: [Disease of stomach and duodenum, unspecified]46-06-2832IkpmlokjTnpyw disorders of stomach and duodenum (1 source)Disease of stomach and duodenum, unspecified; Translations: [Dyspepsia and disorder of function of stomach]Onset: 20-32-0107UwgekyneCewci endocrine disorders (2 sources)Polycystic ovary syndrome; Translations: [Polycystic ovarian syndrome]59-77-1376UjoybzfGhsjo female genital disorders (2 sources)Abnormal uterine bleeding; Translations: [Abnormal uterine and vaginal bleeding, unspecified]12-81-3562LtaanepAjmzt gastrointestinal disorders (20 sources)Irritable bowel syndrome with diarrhea; Translations: [Irritable bowel syndrome with diarrhea]Onset: 610165-18-0649NxvdmyjYnuxo gastrointestinal disorders (10 sources)Irritable bowel syndrome with diarrhea; Translations: [Irritable bowel syndrome]Onset: 55-65-4919FgxyijsIlwsh gastrointestinal disorders (1 source)Intestinal malabsorption; Translations: [Intestinal malabsorption, unspecified]08-73-1306SzvxjguYryep gastrointestinal disorders (1 source)Intestinal malabsorption, unspecified; Translations: [Intestinal malabsorption, unspecified type]Onset: 42-52-5895BqajvmmKdzct gastrointestinal disorders (8 sources)Diarrhea; Translations: [Diarrhea, unspecified]EpisodicOther gastrointestinal disorders (10 sources)Diarrhea, unspecified; Translations: [Diarrhea]Onset: 10-27-2022 EpisodicOther gastrointestinal disorders (4 sources)Personal history of other diseases of the digestive system; Translations: [PERSONAL HX OTH DZ DIGESTIVE SYSTEM]Onset: 97-54-7856Tqhptbhk Other gastrointestinal disorders (3 sources)History of pancreatitis; Translations: [Personal history of other diseases of the digestive system]39-74-5973JzctfeniKtgil gastrointestinal disorders (1 source)Change in bowel habit; Translations: [Change in bowel habits]Onset: 70-80-6862QirqfszrEdjzt infections; including parasitic (2 sources)Personal history of other infectious and parasitic diseases; Translations: [Personal history of other infectious and parasitic diseases] Onset: 927174-30-9800ZczanmagPerkv infections; including parasitic (1 source)History of Clostridium difficile intestinal infection; Translations: [Personal history of other infectious and parasitic diseases]50-18-6944Zooovbqn Other infections; including parasitic (4 sources)History of bacterial infection; Translations: [Personal history of other infectious and parasitic diseases]29-57-8281UrdijawlHswld nutritional; endocrine; and metabolic disorders (5 sources)Underweight; Translations: [UNDERWEIGHT]Onset: 70-32-8477Zosofmlr Other nutritional; endocrine; and metabolic disorders (4 sources)Abnormal weight loss; Translations: [ABNORMAL WEIGHT LOSS]Onset: 39-20-5849FcanghxeVdfrq screening for suspected conditions (not mental disorders or infectious disease) (20 sources)Radiology result abnormal; Translations: [Abnormal findings on diagnostic imaging of other specified body structures]Onset: 12-08-2022 23-64-2765GdijeeqXbevh screening for suspected conditions (not mental disorders or infectious disease) (10 sources)Abnormal findings on diagnostic imaging of other abdominal regions, including retroperitoneum; Translations: [Other specified abnormal findings of blood chemistry]Onset: 64-61-9345MvpwfuubNtocu skin disorders (1 source)Nonscarring hair loss, unspecified; Translations: [NONSCARRING HAIR LOSS UNSPECIFIED]Onset: 33-06-7360RxuxbqubMyveudobsz disorders (not diabetes) (11 sources)Chronic pancreatitis; Translations: [Other chronic pancreatitis] Onset: 598949-46-3250KcelwzjWrmemmnthw disorders (not diabetes) (1 source)Acute pancreatitis without necrosis or infection, unspecifiedEpisodic Residual codes; unclassified (1 source)FH: Cardiovascular disease; Translations: [Family history of ischemic heart disease and other diseases of the circulatory system]74-59-0912Hyknrmcz Unclassified (1 source)APPOINTMENT CKSYWUOUA70-82-7243Bhmyapeseswn (1 source)Other supraventricular tachycardia (HCC); Translations: [Other supraventricular tachycardia (HCC)]Onset: 38-47-2146Azrdeom tract infections (1 source)Urinary tract infection, site not specified; Translations: [Urinary tract infection, site not specified]Onset: 54-25-8724Ukqpbyat Past or Other Problems Problem ClassificationProblemDateDocumented DateEpisodic/ChronicAbdominal pain (20 sources)Right upper quadrant pain; Translations: [Right upper quadrant pain] Onset: 20-17-0609CduhishmXazceode reactions (20 sources)Urticaria; Translations: [Urticaria, unspecified]Onset: 12-09-2021 10-31-0289WtwqxkbqZowymuv disorders (20 sources)Organic anxiety disorder; 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]Onset: 062751-40-5835KjckrbtyIbledjh dysrhythmias (20 sources)Palpitations; Translations: [Palpitations]Onset: 11-07-2023 50-08-7173GgysbjzxLqxzmmirgvjy of device; implant or graft (11 sources)Pain; Translations: [Pain due to genitourinary prosthetic devices, implants and grafts, initial encounter]Onset: 674293-36-2046XphzwcycDygsl of unknown origin (4 sources)Fever, unspecified; Translations: [FEVER UNSPECIFIED]Onset: 92-38-2822WpqbxjvlPxhkd and electrolyte disorders (1 source)Dehydration; Translations: [DEHYDRATION]Onset: 82-68-9175Avqscvbh Gastritis and duodenitis (11 sources)Bile-induced gastritis; Translations: [Other gastritis without bleeding]Onset: 132820-73-8426EzftshowAaczzvketnage symptoms and ill- defined conditions (16 sources)Personal history of urinary (tract) infections; Translations: [Dysuria]Onset: 407096-25-8931LdhwfspgRiuhkdwrud infection (20 sources)Clostridial enteric disease; 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 due to Clostridium difficile, not specified as recurrent]Onset: 09-27-2021 Resolved: 87-83-0800YkauvsbeNgwhkvw and fatigue (4 sources)Weakness; Translations: [WEAKNESS]Onset: 93-67-0328Noxxcvgx Miscellaneous mental health disorders (11 sources)Anxiety about body function or health; Translations: [Other symptoms and signs involving emotional state]Onset: 35-46-347735891772-19-9334TrjnqdruAwtlyc and vomiting (17 sources)Nausea; Translations: [Nausea]Onset: 71-69-2186YnkgajnePxkxyrqiluwix gastroenteritis (4 sources)Noninfective gastroenteritis and colitis, unspecified; Translations: [NONINFECTIVE GE AND COLITIS UNS]Onset: 72-53-1109AmqqqjmfRhgbq connective tissue disease (20 sources)Pain of bilateral upper limbs; Translations: [Pain in right arm] Onset: 054960-06-1929KtkugglgTckki diseases of veins and lymphatics (11 sources)Venous stenosis; Translations: [Compression of vein]Onset: 727065-11-5317UgmtjarjSeswk gastrointestinal disorders (13 sources)Altered bowel function; Translations: [Other specified symptoms and signs involving the digestive system and abdomen]Onset: EpisodicOther gastrointestinal disorders (11 sources)Borborygmi; Translations: [Other specified symptoms and signs involving the digestive system and abdomen]Onset: 666725-20-9323Cjjigecr Other infections; including parasitic (13 sources)Disorder due to infection; Translations: [Unspecified infectious disease]Onset: 134496-69-0261VaezppruIrwkv infections; including parasitic (20 sources)Recurrent infectious disease; Translations: [Unspecified infectious disease]Onset: 672854-40-9021MfrkedlqFupip lower respiratory disease (1 source)Difficulty breathing; Translations: [Other abnormalities of breathing] 14-42-6154CfgdwfkhSkgbh non-traumatic joint disorders (20 sources)Pain in left knee; Translations: [Pain in joint, lower leg]Onset: 010073-22-9469ZiiutxvpCucql non-traumatic joint disorders (20 sources)Chronic pain of left upper limb; Translations: [Pain in left shoulder]Onset: 803922-20-0206JevddosqStqzk nutritional; endocrine; and metabolic disorders (11 sources)Underweight; Translations: [Underweight]Onset: EpisodicOvarian cyst (11 sources)Cyst of left ovary; Translations: [Unspecified ovarian cyst, left side]Onset: 521362-49-4153SnmqcvrzXguazkqk codes; unclassified (1 source)Acquired absence of other specified parts of digestive tract; Translations: [Other postprocedural status]91-25-0027VfeutuoyEslralsafpa; intervertebral disc disorders; other back problems (20 sources)Neck pain; Translations: [Cervicalgia]Onset: 028135-45-4563 EpisodicSpontaneous (11 sources)Miscarriage; Translations: [Complete or unspecified spontaneous without complication]Onset: 361607-38-8930MflwltopBtdchdiosbyq (6 sources)Onset: 079466-06-3136 Results Test NameValueInterpretationReference RangeFacilityALL FOLLICLE STIMULATING HORMONEon 33-81-6868ROH5.7. mIU/mLNOMS HealthcareComment on above:Adult Female Range Follicular phase 3.5 - 12.5 Ovulation phase 4.7 - 21.5 Luteal phase 1.7 - 7.7 Postmenopausal 25.8 - 134.8 Performed at: [address] [id number] Computer Network Support Specialist: Kai Schuster PhD, Phone: [phone] ALL LUTEINIZING HORMONEon 46-02-3235EBGXEYFOEIK HORMONE(LH)11.6. mIU/mLNOMS HealthcareComment on above:Adult Female Range Follicular phase 2.4 - 12.6 Ovulation phase 14.0 - 95.6 Luteal phase 1.0 - 11.4 Postmenopausal 7.7 - 58.5 No Panel Informationon 95-86-2698IBZZPTVDLKHOH HealthcareALL THYROXINE (T4) FREE on 17-66-7895Aqix T4 [Mass/Vol]0.97 ng/dL0.76 - 1.46 ng/dLNOCox [place] CLINISYNCNOCA HealthcareMLR HEMOGLOBIN A1Con 45-31-6683Zlhprnz [Mass/Vol]100 mg/dLNOCox MonettEvpuiyqbohPyF7w (Bld) [Mass fraction]5.1 %4.5 - 6.2 %[facility] Comment on above:ADA RECOMMENDED LIMIT 4.0 - 6.0 ADA THERAPEUTIC TARGET < 7.0 ACTION SUGGESTED > 7.0 [facility]INDoctors [facility] SpringfieldNo Panel Informationon 08-30-0549Znixjvpragekd Test COMMENT.[facility]-FairhillComment on above:Test Ordered: [id number] C difficile Toxins A+B, EIAC difficile Toxins A+B, EIA Negative CB Reference Ra nge: NegativePerformed at: - [facility] [address] [id number] Director: Kai Schuster PhD, Phone: [phone] Auto (Bld) [#/Vol]on 72-77-7638Gmvkcnayy (Bld) [#/Vol]Automated basophil count0.0-0.1 [facility]hillBasophils/100 WBC Auto (Bld)on 11-04-2024 Basophils/100 WBC (Bld)Automated basophil %0.2-2.0[facility]hillEosinophils/100 WBC Auto (Bld)on 17-79-2216Noodrfurtwq/100 WBC (Bld) Automated eosinophil %0.9-7.0[facility]-FairhillErythrocyte distribution width Auto (RBC) [Ratio]on 00-62-5162Puavcvuzmqy distribution width (RBC) [Ratio]Erythrocyte distribution width [Ratio] by Automated count11.0-15.0 [facility]hillHematocrit Auto (Bld) [Volume fraction]on 58-23-4880Ssihglgakb (Bld) [Volume fraction]Hematocrit [Volume Fraction] of Blood by Automated count36.0-48.0[facility]hillHemoglobin [Mass/volume] in Bloodon 73-05-7661Odebezixua (Bld) [Mass/Vol]Hemoglobin [Mass/volume] in Blood12.0-16.0[facility]hillLaboratory - Chemistry and Chemistry - challengeon 14-34-2784Niukbqysb Ql (U)NegativeNEGATIVE [facility]hillGlucose (U) [Mass/Vol]NegativeNEGATIVESelect Medical Specialty [facility]-FairhillKetones Ql (U)15 mg/dLAbnormalNEGATIVESelect Medical Specialty Hospital [facility]-FairhillpH (U)6.0 [pH]5.0-9.0[facility] Health Centerpecific gravity (U) [Rel density]1.0201.005-1.025[facility] Urobilinogen Qn (U)0.2 {Trini'U}/dL0.2-1.0[facility] Lipase [Catalytic activity/Vol]28.0 U/L16.0-77.0[facility]hillMagnesium [Mass/Vol]1.9 mg/dL1.8-2.4FTriHealth [facility]ull[facility] Laboratory - Hematology and Cell countson 28-63-3913Lmpiymyz granulocytes/100 WBC (Bld)0.3 %0.0-0.5FTriHealth McCullough-Hyde Memorial HospitalLaboratory - Specimen informationon 08-68-2448Rnsyohlgju (U)CLEARCLEARFTriHealth McCullough-Hyde Memorial HospitalColor (U)LT. YELLOWYELLOWSelect Medical Specialty Hospital - Cleveland-FairhillLaboratory - Urinalysison 14-39-0471Ljwreyfgh esterase Test strip Ql (U)NegativeNEGATIVE [facility]-FairhillNitrite Ql (U)NegativeNEGATIVESelect Medical Specialty [facility]-FairhillProtein Ql (U)TRACE mg/dLNEG/TRACESelect Medical Specialty Hospital - Cleveland-FairhillLeukocytes [#/volume] corrected for nucleated erythrocytes in Blood by Automated counon 52-51-5990KCS corrected for nucl RBC Auto (Bld) [#/Vol]Leukocytes [#/volume] corrected for nucleated erythrocytes in Blood by Automated coun4.0-11.0[facility]-FairhillLymphocytes Auto (Bld) [#/Vol]on 03-68-0093Bxwxzbkrerq (Bld) [#/Vol]Lymphocytes [#/volume] in Blood by Automated count1.2-3.8[facility]-FairhillLymphocytes/100 WBC Auto (Bld)on 61-99-8616Kdkynxgukkd/100 WBC (Bld)Lymphocytes/100 leukocytes in Blood by Automated count20.5-60.0[facility]-FairhillMCH Auto (RBC) [Entitic mass]on 40-20-4836WKR (RBC) [Entitic mass]MCH [Entitic mass] by Automated count26.7-34.0[facility]-FairhillMCHC Auto (RBC) [Mass/Vol]on 14-10-8252KAYJ (RBC) [Mass/Vol]MCHC [Mass/volume] by Automated legfkYvsm26.9-35.2FTriHealth McCullough-Hyde Memorial HospitalMCV Auto (RBC) [Entitic vol] on 04-41-4034FUL (RBC) [Entitic vol]MCV [Entitic volume] by Automated count 81.0-99.0[facility]hillMonocytes Auto (Bld) [#/Vol]on 06-79-8612Juypcrscb (Bld) [#/Vol]Automated blood monocyte count0.3-0.8[facility]hillMonocytes/100 WBC Auto (Bld)on 14-37-0222Palwkiocv/100 WBC (Bld)Automated monocyte %1.7-12.0[facility] Neutrophils Auto (Bld) [#/Vol]on 42-23-4763Zgbferexlzv (Bld) [#/Vol]Neutrophils [#/volume] in Blood by Automated count1.4-6.5FTriHealth [facility]ull[facility] Hospital Neutrophils/100 WBC Auto (Bld)on 95-18-6262Hyljrrszxnr/100 WBC (Bld)Automated neutrophil %43.0-75.0[facility]hillNo Panel Informationon 81-07-0036Ssctm Microscopic ReviewNOSelect Medical Specialty [facility] Cleveland-FairhillUrine Occult BloodNegativeNEGATIVESelect Medical Specialty Hospital [facility]-FairhillEosinophils # (Auto)0.1 10 3/uL0.0-0.7FTriHealth McCullough-Hyde Memorial HospitalHuman Chorionic Gonadotropin, QualNegativeNEGATIVESelect Medical Specialty Hospital [facility]-FairhillImmature Granulocyte # (Auto)0.02 10 3/uL0.00-0.03[facility] Troponin I High Dkglfdnnfzh33.3 pg/mL4.0-51.3FTriHealth [facility]ull[facility] Hospital Comment on above:CUT-OFF POINTS HAVE BEEN [...] INFORMATION.Platelet mean volume Auto (Bld) [Entitic vol]on 97-88-2739Cagcjimi mean volume (Bld) [Entitic vol] Platelet mean volume [Entitic volume] in Blood by Automated count9.5-13.5 [facility]-FairhillPlatelets Auto (Bld) [#/Vol]on 11-04-2024 Platelets (Bld) [#/Vol]Platelets [#/volume] in Blood by Automated gybfq643-772 [facility]-FairhillRBC Auto (Bld) [#/Vol]on 95-52-4921ZHW (Bld) [#/Vol]Erythrocytes [#/volume] in Blood by Automated count4.20-5.40[facility]hillLaboratory - Chemistry and Chemistry - challengeon 47-33-3537Wfclpzirr Ql (U)NegativeSelect Medical Specialty Hospital - Cleveland-FairhillGlucose (U) [Mass/Vol]NegativeSelect Medical Specialty Hospital - Cleveland-FairhillKetones Ql (U)Negative [facility]-FairhillpH (U)5.0 [pH][facility] Specific gravity (U) [Rel density]1.020[facility] Urobilinogen (U) [Mass/Vol]0.2 mg/dLSelect Medical Specialty Hospital - Cleveland-FairhillLaboratory - Specimen informationon 00-55-2359Bygdxgdsey (U)clearSelect Medical Specialty Hospital - Cleveland-FairhillColor (U)yellowSelect Medical Specialty Hospital - Cleveland-FairhillLaboratory - Urinalysison 41-69-9749Krekljydj esterase Test strip Ql (U)NegativeSelect Medical Specialty Hospital - Cleveland-FairhillNitrite Ql (U)NegativeSelect Medical Specialty Hospital - Cleveland-FairhillProtein Ql (U)+++[facility]hillNo Panel Informationon 59-16-0335Ixadj Occult BloodNegativeSelect Medical Specialty Hospital - Cleveland-FairhillANES POSTPROC EVALon 97-83-7830YBFD POSTPROC EVALHNO ID: [id number] Author: MERRICK MELLO APRN.BACK HANGER Service: ? Author Type: Nurse Dope Heater Type: Anesthesia Postprocedure Evaluation Filed: 09/03/2024 10:48 Note Text: POST ANESTHESIA EVALUATION NOTE : 2000 Procedure Summary Date: 09/03/24 Room / Location: [facility] Anesthesia Start: 1026 Anesthesia Stop: 1043 [...] September 03, 2024 TIME: 10:47 AM CSN: [id number]h [facility] PRE-OPon 02-03-2417HJZP PRE-OPHNO ID: [id number] Author: MERRICK MELLO APRN.CRNA Service: ? Author Type: Nurse Dope Heater Type: Anesthesia Preprocedure Evaluation Filed: 09/03/2024 10:18 Note Text: ANESTHESIOLOGY DAY OF SURGERY NOTE : 2000 Procedure Information Date/Time: 09/03/24 1230 Scheduled providers: Dara Butler Jr., DO; Merrick Mello APRN.BACK HANGER; Karla Ball, tooling mechanic: COLONOSCOPY DIAGNOSTIC Location: [facility] Estimated body mass index is [...] 48 hours of Surgery/Procedure. SIGNATURE: Merrick Mello APRN.BACK HANGER PATIENT NAME: Chioma Alonzo DATE: September 03, 2024 TIME: 10:18 AM CSN: [id number] [facility] 24-79-1330GzpmguezcrbJfijudgad ASC Gastrointestinal Endoscopy Patient Name: Chioma Alonzo Procedure Date: 09/03/2024 10:20 AM Date of : 2000 Admit Type: Outpatient Age: 23 Gender: Female Note Status: Finalized Attending MD: Dara Butler Jr, DO, [id number] Procedure: Colonoscopy Indications: Generalized abdominal pain, Diarrhea, [...] the patient. Procedure Code(s): --- Professional --- 66159, Colonoscopy, flexible; with biopsy, single or multiple Diagnosis Code(s): --- Professional --- R10.84, Generalized abdominal pain R19.7, Diarrhea, unspecified R19.4, Change in bowel habit CPT copyright 2020 [employer]. All rights reserved. The codes documented in this report are preliminary and upon copy center specialist review may be revised to meet current compliance requirements. Attending Participation: I personally performed the entire procedure. MD Dara Egan Jr, DO 09/03/2024 10:46:48 AM This report has been signed electronically by Dara Butler Jr, DO Number of Addenda: 0 Note Initiated On: 09/03/2024 10:20 AM Procedure Start: 10:28:48 AM Procedure End: 10:42:27 AMNormalMercy Hospital sigmoidoscopy studyon 91-65-0166Opfxgwtas ASC Gastrointestinal Endoscopy Patient Name: Chioma Alonzo Procedure Date: 09/03/2024 10:20 AM Date of : 2000 Admit Type: Outpatient Age: 23 Gender: Female Note Status: Finalized Attending MD: Dara Butler Jr, DO, [id number] Procedure: Colonoscopy Indications: Generalized abdominal pain, Diarrhea, [...] the patient. Procedure Code(s): --- Professional --- 40334, Colonoscopy, flexible; with biopsy, single or multiple Diagnosis Code(s): --- Professional --- R10.84, Generalized abdominal pain R19.7, Diarrhea, unspecified R19.4, Change in bowel habit CPT copyright 2020 [employer]. All rights reserved. The codes documented in this report are preliminary and upon copy center specialist review may be revised to meet current compliance requirements. Attending Participation: I personally performed the entire procedure. MD Dara Egan Jr, DO (more content not included)...PROVATIONRegional Medical CenterRadiology Study observation (narrative)[facility] PHYSICALon 27-20-9609YOXVCMO PHYSICALHNO ID: [id number] Author: DARA BUTLER JR, DO Service: Gastroenterology [...] September 03, 2024 TIME: 10:18 AM PAGER/CONTACT #:OhioHealthHORTENCIA Gutierrez 01-47-6111KGVFEEK PROGHNO ID: [id number] Author: SERA GARNER RN Service: Nursing Author [...] Signed By: Sera Garner RN In Department: [facility]ENoMer[facility] Health St[facility] HospitalPathology biopsy report Ganga (Tiss)on 27-21-2093GHFJ REPORTNoMercy Health St. [facility] Comment on above:Order Comment: Specimen Type: TISSUE SPECIMENOrdering Facility: [facility] Address: [address] [place], [place] [address]Result Comment: Surgical Pathology Report Case: [id number] Authorizing Provider: Daar Butler Jr., DO Collected: 09/03/2024 10:39 AM Ordering Location: [facility] Received: 09/03/2024 11:[address] [facility] Pathologist: Ana Ledesma MD Specimen: Colon, Biopsy, random colon, r/o microscopic colitisPerformed By: #### 57430-7 ####[place] [facility] LABCLIA [id number] [address] [facility] LABCLIA [id number] [address] OF [facility] CENTERFINAL DIAGNOSIS OhioHealthComment on above:Order Comment: Specimen Type: TISSUE SPECIMENOrdering Facility: [facility] Address: [address] [place], [place] [address]Result Comment: A. Colon, biopsy: - Colonic mucosa with no diagnostic abnormalities. at 1426 ESTPerformed By: #### 83408-4 ####[facility] LABCLIA [id number] [address] LABCLIA [id number] [address]NoUniversity Hospitals Geneva [facility] Center on above:Order Comment: Specimen Type: TISSUE SPECIMENOrdering Facility: [facility] Address: [address] [place], [place] [address]Result Comment: Diagnostic interpretation performed at: [facility], [address] [place] [address] CLIA# [id number] Ultrasound Supervisor: SHAYE Schreibererformed By: #### 37351-6 ####[facility] LABCLIA [id number] [address] LABCLIA [id number] [address] on above:Order Comment: Specimen Type: TISSUE SPECIMENOrdering Facility: [facility] Address: [address] [place], [place] [address]Result Comment: A. Colon, Biopsy Received in formalin are multiple pieces of cano-brown, soft tissue aggregating to 1.8 x 0.3 x 0.2 cm. Totally submitted in one cassette. DL September 04, 2024 3:07 AM Gross examination performed at [facility], [address] [place], [place] [address]Performed By: #### 26057-0 ####[facility] LABCLIA [id number] [place] [id number] [facility] LABCLIA [id number] [address] OF AMERICAOffice Visiton 24-84-3812Ptlbst-up [id number] Chioma Alonzo 2000 F Date Provider Department Center 07/28/2024 PAULA BASILIO MP [facility] No family history on file Level of Service:40737 [place] OFFICE/OUTPATIENT ESTABLISHED LOW MDM 20 MIN (GC) Reason for Visit and Comments: Follow-up [856270] - Recurrent C Diff Nausea [70] Diarrhea [35] Constipation [514677]NormalUnSelect Medical Specialty Hospital [facility]36on Follow-up message sent to patient via Geospiza.NormalMercy Health Urbana Hospital36on 12-25-532805Xpqboxp LVM, hx of C Diff, reports she has a UTI and wants to know if Dificid is recommended to be taken along with her UTI atb? Please advise.NormalMercy Health Urbana HospitalLaboratory - Chemistry and Chemistry - challengeon 36-64-1730Spskgewsw Ql (U)NegativeSelect Medical Specialty Hospital - Cleveland-FairhillGlucose (U) [Mass/Vol]NegativeSelect Medical Specialty Hospital - Cleveland-FairhillKetones Ql (U)Negative [facility]-FairhillpH (U)6.0 [pH][facility] Specific gravity (U) [Rel density]1.020[facility] Urobilinogen (U) [Mass/Vol]0.2 mg/dLSelect Medical Specialty Hospital - Cleveland-FairhillLaboratory - Specimen informationon 51-30-7238Rfkumpykrj (U)cloudySelect Medical Specialty Hospital - Cleveland-FairhillColor (U)YellowSelect Medical Specialty Hospital - Cleveland-FairhillLaboratory - Urinalysison 06-20-4995Qclgvkfad esterase Test strip Ql (U)NegativeSelect Medical Specialty Hospital - Cleveland-FairhillNitrite Ql (U)NegativeSelect [facility] Protein Ql (U)NegativeSelect Medical Specialty Hospital - Cleveland-FairhillNo Panel Informationon 90-94-3318Hfkxq Occult BloodNegativeSelect Medical Specialty Hospital - Cleveland-FairhillTelephoneon [id number] Chioma Alonzo 2000 F Date Provider Department Center 07/24/2024 SHYAM RUSH MP [facility] No family history on fileNormalUniversity of Wilbarger General HospitalUrine Culture on 17-64-4964Pctcycgd identified Cx Nom (U)15,000 colonies/ml mixed bacterial skin contaminants 2 Days PERFORMED BY: [facility] [address] [facility]. [place] [id number] PATHOLOGIST GROUNDS MAINTENANCE WORKER DEANNE CABELLO M.D.NormalThe Unc Health Rockingham Physician GroupComment on above: Performed By: #### CUU #### [facility] [address] [place] [id number] [place]25([place])D3 [facility] [address]36[address]-prfarjmfvunogo D3 [Mass/Vol]39.8 ng/uFHiexxr11.0-80.0on HospitalComment on above:Order Comment: Specimen Type: BLOOD SPECIMEN [facility] Address: [address] [place], [place] [address]Result Comment: Classification of 25 [place] Vitamin D status: Deficiency/Insufficiency: < or = 30 ng/ml. Sufficiency/Optimal Levels: 31-80 ng/mL Toxicity: > 100 ng/mL. 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 NO swelling. [...] scalp tenderness, visual changes (more content not included)...NormalProMedica Fostoria Community Hospitalon 36-84-3398UEFUUxeomtabm (RIOS) CHIOMA ALONZO ([id number]) 2000 F Date Time Provider Department 07/15/24 NAE IBARRA During your visit today, we recorded the following information about you: Nae Ibarra MD 07/15/2024 6:42 PM Signed Please Call patient if MyChart note not read to review results/released to My Chart if tests completed at F: normal labs. Take over the counter vitamin D 3491-1214 International Units daily with food. Happy to [...] 07/15/2024 Encounter Status:Closed by HAM THOMPSON on 07/17/24NoalCLancaster Municipal HospitalCobalamin (Vitamin B12) [Mass/Vol]on 25-25-8224Kaveuzhsmjaxqx and review of laboratory resultsNoSt. Vincent HospitalLaboratory - Chemistry and Chemistry - challengeon 19-25-1747Bceijrwjh (Vitamin B12) [Mass/Vol]841 pg/xZ281-5154SkmvjbfzaOhioHealth Nelsonville Health Centererum or plasma calcidiol measurement (mass/volume)on 28-38-760402395042-fhxbtlyliaghab D3 [Mass/Vol] Serum or plasma calcidiol measurement (mass/volume)31.0-80.0[facility]-FairhillComment on above:Classification of 25 [place] Vitamin D status: Deficiency/Insufficiency: < or = 30 ng/ml.Sufficiency/Optimal Levels: 31-80 ng/mLToxicity: > 100 ng/mL. Test performed by chemiluminescent immunoassay. VITAMIN B12on 66-82-0270Szikaqavu (Vitamin B12) [Mass/Vol]841 pg/mL232 - 1245 pg/mLCst. francis hospital ClinicVit B12 SerPl-mCncon 05-71-6948Ldapmazwa (Vitamin B12) [Mass/Vol]841 pg/cOGmmqgh948-8167Eepw HospitalComment on above:Order Comment: Specimen Type: BLOOD SPECIMEN [facility] Address: [address] [place], [place] [address]Ljmavrdfb By: #### 2132-9 #### [facility] CLIA [id number] [facility] [place] [address] [place] OF AMERICABasophils Auto (Bld) [#/Vol]on 07-11-2024 Basophils (Bld) [#/Vol]Automated basophil count0.0-0.1FTriHealth McCullough-Hyde Memorial HospitalBasophils/100 WBC Auto (Bld)on 20-36-1151Iwljvrxcd/100 WBC (Bld)Automated basophil %0.2-2.0[facility]hillEosinophils/100 WBC Auto (Bld)on 52-80-8830Ovatcwjxbye/100 WBC (Bld)Automated eosinophil %0.9-7.0 [facility]-FairhillErythrocyte distribution width Auto (RBC) [Ratio]on 35-51-8889Hfvudlkundk distribution width (RBC) [Ratio]Erythrocyte distribution width [Ratio] by Automated count11.0-15.0[facility]-FairhillEstimated glomerular filtration rate (GFR) non- Americanon 56-90-1530LNQ/1.73 sq M.predicted among non-blacks MDRD (S/P/Bld) [Vol rate/Area]Estimated glomerular filtration rate (GFR) non->=60 mL/min/1.73m 2FTriHealth McCullough-Hyde Memorial HospitalGlobulin Calc (S) [Mass/Vol]on 36-26-3198Iplqkxab (S) [Mass/Vol]Serum globulin measurement by calculation (mass/volume)[facility]hillHCG ( test) IA.rapid Ql (U)on 77-94-5054FIA ( test) Ql (U)Urine human chorionic gonadotropin (hCG) detection by immunoassayNEGATIVESelect Medical Specialty Hospital [facility] Hematocrit Auto (Bld) [Volume fraction]on 98-69-3139Gynyrdnnvm (Bld) [Volume fraction]Hematocrit [Volume Fraction] of Blood by Automated count36.0-48.0 [facility]-FairhillHemoglobin [Mass/volume] in Bloodon 07-11-2024 Hemoglobin (Bld) [Mass/Vol]Hemoglobin [Mass/volume] in Blood12.0-16.0[facility]hillLaboratory - Chemistry and Chemistry - challengeon 43-31-0250Wdttoza [Mass/Vol]4.4 g/dL3.4-5.0[facility]hillALP [Catalytic activity/Vol]52 U/U48-855IaxodqzfmSelect Medical Specialty Hospital - Cleveland-FairhillALT [Catalytic activity/Vol]16 U/U98-20LvkofjytiSelect Medical Specialty Hospital - Cleveland-FairhillAST [Catalytic activity/Vol]18 U/O81-85AmwskeexqSelect Medical Specialty Hospital - Cleveland-FairhillBilirubin [Mass/Vol]0.9 mg/dL0.2-1.0[facility]-FairhillCalcium [Mass/Vol]9.4 mg/dL8.5-10.1FTriHealth McCullough-Hyde Memorial HospitalChloride [Moles/Vol]103 mmol/L 98-107[facility]-FairhillCO2 [Moles/Vol]26.9 mmol/L21.0-32.0 [facility]-FairhillCreatinine [Mass/Vol]0.80 mg/dL0.55-1.02 [facility]-FairhillGFR/1.73 sq M.predicted MDRD (S/P/Bld) [Vol rate/Area]mL/min/{1.73_m2}>=60 mL/min/1.73m 2FTriHealth McCullough-Hyde Memorial Hospital Glucose [Mass/Vol]97 mg/mC38-052JbzhmppcuSelect Medical Specialty Hospital - Cleveland-FairhillLipase [Catalytic activity/Vol]25.0 U/L16.0-77.0[facility] Potassium [Moles/Vol]3.8 mmol/L3.5-5.1FTriHealth McCullough-Hyde Memorial HospitalProtein [Mass/Vol]7.9 g/dL6.4-8.2FHighland District Hospitalodium [Moles/Vol]140 mmol/X274-670FgmskmxbpSelect Medical Specialty Hospital - Cleveland-FairhillUrea nitrogen [Mass/Vol]9.0 mg/dL 7.0-18.0[facility]-FairhillUrea nitrogen/Creatinine [Mass ratio] 11.2 mg/mgSelect Medical Specialty Hospital - Cleveland-FairhillBilirubin Ql (U)NegativeNEGATIVE [facility]-FairhillGlucose (U) [Mass/Vol]NegativeNEGATIVESelect Medical Specialty Hospital - Cleveland-FairhillKetones Ql (U)TRACE mg/dLAbnormalNEGATIVESelect Medical Specialty Hospital - Cleveland-FairhillpH (U)6.0 [pH]5.0-9.0[facility] Specific gravity (U) [Rel density]1.0251.005-1.025[facility]-FairhillUrobilinogen Qn (U)0.2 {Trini'U}/dL0.2-1.0[facility]-FairhillLaboratory - Hematology and Cell countson 29-06-7825Tueowbik granulocytes/100 WBC (Bld)0.2 %0.0-0.5FTriHealth McCullough-Hyde Memorial Hospital Laboratory - Specimen informationon 24-25-9055Axjuzegwox (U)CLEARCLEARFTriHealth McCullough-Hyde Memorial HospitalColor (U)LT. YELLOWYELLOWSelect Medical Specialty Hospital - Cleveland-FairhillLaboratory - Urinalysison 15-54-5825Fkyynpnod esterase Test strip Ql (U) NegativeNEGATIVESelect Medical Specialty Hospital - Cleveland-FairhillNitrite Ql (U)NegativeNEGATIVE [facility]-FairhillProtein Ql (U)TRACE mg/dLNEG/TRACESelect Medical Specialty Hospital - Cleveland-FairhillLeukocytes [#/volume] corrected for nucleated erythrocytes in Blood by Automated counon 86-63-2445IRU corrected for nucl RBC Auto (Bld) [#/Vol]Leukocytes [#/volume] corrected for nucleated erythrocytes in Blood by Automated coun4.0-11.0[facility] - [place]-FairhillLymphocytes Auto (Bld) [#/Vol]on 92-86-1764Nmmumqeqkev (Bld) [#/Vol]Lymphocytes [#/volume] in Blood by Automated count1.2-3.8[facility] [place]-FairhillLymphocytes/100 WBC Auto (Bld)on 74-06-7483Lhsjypetkrn/100 WBC (Bld)Lymphocytes/100 leukocytes in Blood by Automated count20.5-60.0[facility] CenterH Auto (RBC) [Entitic mass]on 05-69-0845MQI (RBC) [Entitic mass]MCH [Entitic mass] by Automated count26.7-34.0[facility] [place]-FairhillMCHC Auto (RBC) [Mass/Vol]on 48-82-4776CVJY (RBC) [Mass/Vol]MCHC [Mass/volume] by Automated count29.9-35.2FTriHealth McCullough-Hyde Memorial HospitalMCV Auto (RBC) [Entitic vol]on 83-40-5734NNU (RBC) [Entitic vol]MCV [Entitic volume] by Automated count 81.0-99.0[facility] [place]-FairhillMonocytes Auto (Bld) [#/Vol]on 17-16-8311Pkyegyqim (Bld) [#/Vol]Automated blood monocyte count0.3-0.8[facility] CenterMonocytes/100 WBC Auto (Bld)on 42-59-8066Zvxmmlpyv/100 WBC (Bld)Automated monocyte %1.7-12.0[facility] [place] Neutrophils Auto (Bld) [#/Vol]on 07-67-4977Lagfuccyhws (Bld) [#/Vol]Neutrophils [#/volume] in Blood by Automated count1.4-6.5FTriHealth [facility]ull[facility] Hospital Neutrophils/100 WBC Auto (Bld)on 34-12-5528Sppklpwssds/100 WBC (Bld)Automated neutrophil %Low43.0-75.0[facility] [place]hillNo Panel Informationon 11-03-5263Nircticslki # (Auto)0.3 10 3/uL0.0-0.7FTriHealth McCullough-Hyde Memorial HospitalImmature Granulocyte # (Auto)0.01 10 3/uL0.00-0.03[facility] [place]-FairhillUrine Microscopic ReviewNOSelect Medical Specialty Hospital - [place]-FairhillUrine Occult BloodNegativeNEGATIVESelect Medical Specialty Hospital - [place]-FairhillPlatelet mean volume Auto (Bld) [Entitic vol]on 22-14-7038Cossqgiv mean volume (Bld) [Entitic vol]Platelet mean volume [Entitic volume] in Blood by Automated count9.5-13.5 [facility] [place]-FairhillPlatelets Auto (Bld) [#/Vol]on 07-11-2024 Platelets (Bld) [#/Vol]Platelets [#/volume] in Blood by Automated pjjyd061-742 [facility] [place]-FairhillRBC Auto (Bld) [#/Vol]on 14-99-8263YEV (Bld) [#/Vol]Erythrocytes [#/volume] in Blood by Automated count4.20-5.40[facility] Centererum or plasma albumin/globulin mass ratioon 07-11-2024 Albumin/Globulin [Mass ratio]Serum or plasma albumin/globulin mass ratio [facility] Centererum or plasma anion gap determinationon 11-77-1753Laqxt gap [Moles/Vol]Serum or plasma anion gap determinationSelect Medical Specialty Hospital - [place]-FairhillNo Panel Informationon 89-43-6054Uzavwrxbvmn difficile (PCR)(LAB)PositiveSelect Medical Specialty Hospital - [place]-FairhillComment on above:RESULTS CALLED TO KIMMY OLGUIN AT OFFICE BY Allyssa Valdes at 1352[facility]ero[facility] TestCOMMENT.[facility] [place]-FairhillComment on above:Test Ordered: [id number] C difficile Toxins A+B, EIAC difficile Toxins A+B, EIA Negative CB Reference Range: NegativePerformed at: CB - [facility] [id number], [place] [id number] Director: Kai Schuster PhD, Phone: [phone] Panel Informationon 17-20-3877Adiww Chorionic Gonadotropin, Quant<1 mIU/mL [facility] [place]-FairhillComment on above:5-50 0.2-1 NYEW44-828 1-2 XBGAT524-5,000 2-3 TTUXB662-48,000 3-4 WEEKS1,000-50,000 4-5 WEEKS10,000-100,000 5-6 WEEKS15,000-200,000 6-8 WEEKS10,000-100,000 2-3 MONTHSTBH PREG QUANT HCGon 81-87-9073HRI QUANTITATIVE<1mIU/mLNOMS HealthcareComment on above:5-50 0.2-1 WEEK 50-500 1-2 WEEKS 100-5,000 2-3 WEEKS 500-10,000 3-4 WEEKS 1,000-50,000 4-5 WEEKS 10,000-100,000 5-6 WEEKS 15,000-200,000 6-8 WEEKS 10,000-100,000 2-3 MONTHS CLINISYNCNOMS HealthcareCNPNon 24-27-3260FBTTWkmhmczlf ([facility]) CHIOMA ALONZO ([id number]) 2000 F Date Time Provider Department 07/03/24 JAY THOMPSON [facility] During your visit today, we recorded the following information about you: Jorge Oropeza 07/03/2024 9:27 AM Addendum BLOCK CELIAC PLEXUS WITH C-ARM needs rescheduled. Please reach out to her to reschedule this. Shu Wilkins 07/07/2024 2:25 PM Signed BLOCK CELIAC PLEXUS WITH C-ARM CHIOMA ALONZO [id number] DESMOND HUFFMAN 07/21 -THINNERS -DM Patient was made aware that the ASC will call the day prior to scheduled procedure between the hours of 12 and 4 pm to advise patient of arrival time the day of procedure. Patient was advised that they will require a cdl bulk driver on the day of their procedure, [...] Dr. Huffman from 07/04 to 07/21 in [place] per patient request. Shu Wilkins 07/08/2024 9:12 [...] Reason for Visit: Appointment [186] Schedule Injection [9439] Prescriptions as of 07/08/2024 - gabapentin (NEURONTIN) [...] 11/15/2023 Encounter Status:Closed by JORGE OROPEZA on 07/03/24[facility] Panel Informationon 74-76-6942Rhvi of biopsy: tangential Informed consent: discussed and [...] taken yes Amount of lidocaine used: 0.4 [facility] TeleusNo Panel InformationOrdered By: Kayla Griffith on 00-13-4991UVVK TeleusNo Panel Informationon 06-30-2024 Human Chorionic Gonadotropin, Quant8 mIU/mLSelect [facility] [place] Comment on above:5-50 0.2-1 EJTW36-790 1-2 XLWCH588-9,000 2-3 CEUEX293-95,000 3- 4 WEEKS1,000-50,000 4-5 WEEKS10,000-100,000 5-6 WEEKS15,000-200,000 6-8 WEEKS10,000-100,000 2-3 MONTHSBasophils Auto (Bld) [#/Vol]on 95-83-0675Cobamckxp (Bld) [#/Vol]Automated basophil count0.0-0.1FTriHealth [facility]ull[facility] Hospital Basophils/100 WBC Auto (Bld)on 78-74-2155Qjabuhlab/100 WBC (Bld)Automated basophil %0.2-2.0[facility] [place]hillEosinophils/100 WBC Auto (Bld) on 54-82-0321Uczleumhthw/100 WBC (Bld)Automated eosinophil %0.9-7.0[facility] [place]-FairhillErythrocyte distribution width Auto (RBC) [Ratio]on 18-94-1798Tumedjrecyj distribution width (RBC) [Ratio]Erythrocyte distribution width [Ratio] by Automated count11.0-15.0[facility] [place] Estimated glomerular filtration rate (GFR) non- Americanon 06-25-2024 GFR/1.73 sq M.predicted among non-blacks MDRD (S/P/Bld) [Vol rate/Area]Estimated glomerular filtration rate (GFR) non->=60 mL/min/1.73m 2 [facility] [place]hillGlobulin Calc (S) [Mass/Vol]on 06-25-2024 Globulin (S) [Mass/Vol]Serum globulin measurement by calculation (mass/volume) [facility] [place]-FairhillHematocrit Auto (Bld) [Volume fraction]on 86-53-7635Cdakdrnijj (Bld) [Volume fraction]Hematocrit [Volume Fraction] of Blood by Automated count36.0-48.0[facility] [place]hillHemoglobin [Mass/volume] in Bloodon 61-45-4306Gegpltmmxt (Bld) [Mass/Vol]Hemoglobin [Mass/volume] in Blood12.0-16.0[facility] [place]hillLaboratory - Chemistry and Chemistry - challengeon 98-27-9701Eajppxv [Mass/Vol]4.1 g/dL 3.4-5.0[facility] [place]hillALP [Catalytic activity/Vol]50 U/L46-116 [facility] [place]hillALT [Catalytic activity/Vol]14 U/L14-59 [facility] [place]hillAST [Catalytic activity/Vol]10 U/WIrs20-40 [facility] [place]-FairhillBilirubin [Mass/Vol]1.1 mg/dLHigh0.2-1.0 [facility] [place]hillCalcium [Mass/Vol]9.3 mg/dL8.5-10.1FTriHealth McCullough-Hyde Memorial HospitalChloride [Moles/Vol]105 mmol/J12-226IvibehjacSelect Medical Specialty Hospital - [place]-FairhillCO2 [Moles/Vol]24.5 mmol/L21.0-32.0[facility] [place]-FairhillCreatinine [Mass/Vol]0.73 mg/dL0.55-1.02[facility] [place] GFR/1.73 sq M.predicted MDRD (S/P/Bld) [Vol rate/Area]mL/min/{1.73_m2}>=60 mL/min/1.73m 2FTriHealth McCullough-Hyde Memorial HospitalGlucose [Mass/Vol]103 mg/kG00-753 [facility] [place]hillPotassium [Moles/Vol]4.1 mmol/L3.5-5.1FTriHealth McCullough-Hyde Memorial HospitalProtein [Mass/Vol]7.3 g/dL6.4-8.2FHighland District Hospitalodium [Moles/Vol]139 mmol/T324-972WfvzujxrmSelect Medical Specialty Hospital - [place]-FairhillUrea nitrogen [Mass/Vol]12.0 mg/dL7.0-18.0[facility] [place]-FairhillUrea nitrogen/Creatinine [Mass ratio]16.4 mg/mgSelect Medical Specialty Hospital - [place]-FairhillBilirubin Ql (U)NegativeNEGATIVESelect Medical Specialty Hospital - [place]hillGlucose (U) [Mass/Vol]NegativeNEGATIVESelect Medical Specialty Hospital - [place]-FairhillKetones Ql (U)15 mg/dLAbnormalNEGATIVESelect Medical Specialty Hospital - [place]-FairhillpH (U)5.5 [pH]5.0-9.0 [facility] Centerpecific gravity (U) [Rel density]>=1.030 Abnormal1.005-1.025[facility] [place]-FairhillUrobilinogen Qn (U)0.2 {Trini'U}/dL0.2-1.0[facility] [place]hillLaboratory - Hematology and Cell countson 63-85-7819Gnktqcpr granulocytes/100 WBC (Bld)0.3 %0.0-0.5 [facility] [place]hillLaboratory - Specimen informationon 06-25-2024 Appearance (U)CLEARCLEARFTriHealth McCullough-Hyde Memorial HospitalColor (U)YELLOWYELLOW [facility] [place]hillLaboratory - Urinalysison 21-19-4942Akbwnmxdr esterase Test strip Ql (U)NegativeNEGATIVESelect Medical Specialty Hospital - [place]-FairhillMucus Ql (Urine sed)MODERATEAbnormalNONE SEENSelect Medical Specialty Hospital - [place]-FairhillNitrite Ql (U)NegativeNEGATIVESelect Medical Specialty Hospital - [place]-FairhillProtein Ql (U)30 mg/dL AbnormalNEG/TRACESelect Medical Specialty Hospital - [place]-FairhillLeukocytes [#/volume] corrected for nucleated erythrocytes in Blood by Automated counon 29-40-9418NNC corrected for nucl RBC Auto (Bld) [#/Vol]Leukocytes [#/volume] corrected for nucleated erythrocytes in Blood by Automated coun4.0-11.0[facility] [place]-FairhillLymphocytes Auto (Bld) [#/Vol]on 55-06-7389Iptnlckfubv (Bld) [#/Vol]Lymphocytes [#/volume] in Blood by Automated count1.2-3.8[facility] [place]-FairhillLymphocytes/100 WBC Auto (Bld)on 06-25-2024 Lymphocytes/100 WBC (Bld)Lymphocytes/100 leukocytes in Blood by Automated count Low20.5-60.0[facility] CenterH Auto (RBC) [Entitic mass]on 1998IBL (RBC) [Entitic mass]MCH [Entitic mass] by Automated count26.7-34.0 [facility] [place]-FairhillMCHC Auto (RBC) [Mass/Vol]on 66-52-3568SDSN (RBC) [Mass/Vol]MCHC [Mass/volume] by Automated count29.9-35.2FTriHealth McCullough-Hyde Memorial HospitalMCV Auto (RBC) [Entitic vol]on 00-74-1222KSJ (RBC) [Entitic vol] MCV [Entitic volume] by Automated count81.0-99.0[facility] [place]hillMonocytes Auto (Bld) [#/Vol]on 87-80-2637Gxpjmrlat (Bld) [#/Vol]Automated blood monocyte count0.3-0.8[facility] [place]hillMonocytes/100 WBC Auto (Bld)on 59-35-7531Lnnosghob/100 WBC (Bld)Automated monocyte %1.7-12.0 [facility] [place]-FairhillNeutrophils Auto (Bld) [#/Vol]on 06-25-2024 Neutrophils (Bld) [#/Vol]Neutrophils [#/volume] in Blood by Automated count 1.4-6.5FTriHealth McCullough-Hyde Memorial HospitalNeutrophils/100 WBC Auto (Bld)on 17-87-5081Oklmjwdetcc/100 WBC (Bld)Automated neutrophil %43.0-75.0[facility] [place]hillNo Panel Informationon 42-47-0094Ljvglzhhsuh # (Auto)0.2 10 3/uL0.0-0.7FTriHealth McCullough-Hyde Memorial HospitalHuman Chorionic Gonadotropin, Quant32 mIU/mLSelect Medical Specialty Hospital - [place]-FairhillComment on above:5-50 0.2-1 QKRF96-275 1-2 SPZZQ692-7,000 2-3 VTLKC493-10,000 3-4 WEEKS1,000-50,000 4-5 WEEKS10,000-100,000 5-6 WEEKS15,000-200,000 6-8 WEEKS10,000-100,000 2-3 MONTHS Immature Granulocyte # (Auto)0.02 10 3/uL0.00-0.03[facility] [place]hillUrine BacteriaTRACE #/HPFAbnormalNONE Kindred HealthcareUrine Culture ReflexedNOSelect Medical Specialty Hospital - [place]-FairhillUrine Microscopic ReviewYEOur Lady of Mercy HospitalUrine Occult BloodNegativeNEGATIVE [facility] [place]hillUrine RBCNONE SEEN #/HPF0-2FTriHealth McCullough-Hyde Memorial HospitalUrine Squamous Epithelial CellsMODERATE #/LPFAbnormalNONE/RARE [facility] [place]hillUrine WBCNONE SEEN #/HPFNONE Kindred HealthcarePlatelet mean volume Auto (Bld) [Entitic vol]on 33-07-7383Jlwcxeil mean volume (Bld) [Entitic vol]Platelet mean volume [Entitic volume] in Blood by Automated count9.5-13.5FTriHealth [facility] Platelets Auto (Bld) [#/Vol]on 50-79-9023Umryiaqxu (Bld) [#/Vol]Platelets [#/volume] in Blood by Automated eyuva660-393FdugkyrkiSelect Medical Specialty Hospital - [place] RBC Auto (Bld) [#/Vol]on 88-91-0941ZWZ (Bld) [#/Vol]Erythrocytes [#/volume] in Blood by Automated count4.20-5.40[facility] Health Centererum or plasma albumin/globulin mass ratioon 23-16-9740Yipqevn/Globulin [Mass ratio] Serum or plasma albumin/globulin mass ratioSelect Medical Specialty Hospital - [place] Serum or plasma anion gap determinationon 59-00-5878Bdjea gap [Moles/Vol]Serum or plasma anion gap determinationSelect Medical Specialty Hospital - [place]-FairhillCNPNon 11-05-7618HYTDBoywbtemd (INMAVN) CHIOMA ALONZO ([id number]) 2000 F Date Time Provider Department 06/23/24 [...] 11/15/2023 Encounter Status:Closed by BONNY JOYNER on 06/23/24OhioHealthCNrozina 66-74-2686JVRHAekdlhfzp (ORLORA) CHIOMA ALONZO ([id number]) 2000 F Date Time Provider Department 05/14/24 [...] 11/15/2023 Encounter Status:Closed by SHU WILKINS on 05/14/24OhioHealthANATelephone (ORALEXIAA) CHIOMA ALONZO N ([id number]) 2000 F Date Time Provider Department 05/14/24 THO HUFFMAN During your visit today, we recorded the following information about you: Shu Wilkins 05/14/2024 1:48 PM Signed diagnostic celiac plexus blockade CHIOMA ALONZO [id number] BHARATHI 07/04 -THINNERS -DM Patient was made aware that the ASC will call the day prior to scheduled procedure between the hours of 12 and 4 pm to advise patient of arrival time the day of procedure. Patient was advised that they will require a cdl bulk driver on the day of their procedure, [...] neuritis [M79.2] Order(s):SURGICAL REQUEST - ELECTIVE (02/2020) [[id number]] Order #: [id number]: 1 Prescriptions as of 05/14/2024 - gabapentin [...] 11/15/2023 Encounter Status:Closed by SHU WILKINS on 05/14/24[facility] 80-04-5003WOJTUailgh Visit ([facility]) CHIOMA ALONZO ([id number]) 2000 F Date Time Provider Department 04/30/24 11:00 AM PAULA PRETTY [facility] During your visit today, we recorded [...] to display No d (more content not included)...NormalMary Rutan Hospitalgical pathology studyOrdered By: Diego Syed on 86-96-2213Zwwthkpjzk comment Ganga (Report) a7galVPtQIRzd9wuAAIfmVXdKsLdFtWtNiCuYtcabUMuDCsdboEgFOszr5AvW8InOqFbCEyqpgBsUFPt YnaemmprQGJjZUB9ovXi EHBdYGuwPAYwJOmcKj9wkKGasHsvYhHzUDVpy2puziVPMXnnSVTMDQc5y0yqGPLgExY2sDStESoiO2qk orPjxDJeR6Xfk5WkKSq1 pF90UENuhC0ydIOmXIxjxpUrGkJ3NLdlHXZlQpE2EMIgmITcBCJwJ5ugCBCxLMrqSLWvQKwpmDVeILJ7 wJwdj8N8uLGtmBOqqFhe RzBjLeToVqCBj3MbCWm7pNaxC6FwUJAwZuF4eNQoZTMiMJqoKUEaISEbpbT3kZ19YUxbqjT7lGNqr3Yf y86gb376pE8pmZZsXXO8 UBFlDZNwpFZgPIQyDBB0YIEljSKzU2ieYxScnTPjG5HnPjUpcHLkC0VaMrZvzIRxJ0KhWlLnzPBoKDCd jFS5XZcfx312KPB0FuCp TW5kU6Tjh4Y9cA7swDWvRARhrLLzIdWhVZWttm9hkIDhPCejl3KbLZN3yqV9xIWtzXJaVMRiBF18Wmqz l6FdXuppYQF5LUUfmmWp t7Vky8icCjCtatSoI7srV5DeZORgBNIvIUZgHmRdhgEia4Nnw9CssDNtgRj2z2mwXSBoKKNdvAoml6ep GXP7FRWoO7X0cPKpp6mo JGfjJQJzcNY7duB4SQfrCJDynfA5lgA7XYpkOUOlwNQ2npT1IRqtDTXsHtT5exS9PLoaYYRyWLM6EtWl LDJwn0QhocqkUtQfs2Cq jHMvPFnaM13qq629OJVisnUeW9recRKozenjzAYgmhjpCSvwqtT0BZWaHTFxKAvmLRZrEMUyNkCorLWz ZzEwMzNcaGljaFxmMVxk CeJxLHHqGJdmO4qcWkNbSlJrWFIAkTN5cCNoy7ukbrK1cGPgDU9sHFUrxLTckpKgf1Z8PKD6iUBemY0b rNCeEDDuiTZkovKdnt06 kQYooPW3HUFyFQYnfNUcxD0nSBCzJVMWzS0esRJSvzMvowCsLNWlrCzlab9FgGEfwf0dgHApH1KngMuo gPNoGPZjELBpyZpmiJVrAOQvAXHriisad4AgGLCaaRMpA1BuRP0dHJMlin98Kgzkumzbig [facility] [place] Work Phone: Pathology report Cancer NarrativeSurgical Pathology Case: [id number] Authorizing Provider: Whitney Ambriz MD MPH Collected: 04/16/2024 1012 Ordering Location: [facility] Received: 04/17/2024 0929 Center Pathologist: Diego Syed MD PhD Specimens: A) - DUODENUM SECOND PART BIOPSY, Cold Bx B) - ANTRUM BODY BIOPSY, Evaluate for H pylori and Gastritis [facility] Work Phone: Pathology report final diagnosis Narrative w2ozxLWhCYHpuNNvIHofVbzlfhBcUDNadOPyW7DzstksGKoeNZ3lOX0auIytnYEnkJUwAKIjDoTwe5wd q364bUZhd7agYPQVgtlf jVd7dEsrZ31jw0J4VataW6mrAOTuLPwsLNLwPXkysTUfXJu4YWNviUCoetVqEuAfIQPysWEtiNY5RPKt VG2vaaqbOSmhLEslBOHl mpU6FPIotRQnR5QhRRQlBQ2pwnpwKOO2STpuYFEzWXU5DqTwYZBrs3Xknsw3WyKcmRk2f0iwWUJqBIIm lXzey5zsVNE4VEBcwXCs Y1nqzK9aFYQjMV4vrspun1uvRQpoDUwfDRRytIP0skO1XICbvKWxY6XcgG5pAIMxVQHwucVibJlggY3j SpexqbDsQERrLMA7s7It akIsGQPVERPvxzKuDMGcyJebAkwpoHE9QxlhRJPnRTAaexLqCLIRm6YrNScnSDJdWOYiBMswyEDfh5Pr LiBObyBpbnRyYWVwaXRo RMkwTYnxdDetdKmhY9t5s0Ypob5zJa7shNDlANEhdGawlHJhYOLtsIq8DJQ4xDCfMjbaVESakGAwQKUc Gq8hC8ErjRNkbGvmKH72 xjEkZBSzLPTMe6O0IMZHcC0uy3u1VSQwNFRecWDqRWTezlAvH5CbPT0cTQkrZyFfHVKmolPbiSsvxpMp ZJ73T36zMMB8iTObQFGe GU7sV2ZmQMmdm1KffNNlyaKvtu9ua4Rjiz1qNXKeKHJltInjlI3znEXkqQG3y7F6UWRjbJeyTWMruEib FIEbVcm2lGywDLOyUvhz KIEhkqYaJPHMvkGUGPosR86xPNR6NFYzcFyva6XkZF5uY5MmrOFnqeQsxoQmjSYqesNjQsewCQ9diILh XHBhcn0=[facility] Work Phone: Pathology report gross observation Narrative o7gyrRShYHIubLBrXEdoCjcbszVoCEDjoHTtX7McbupqLVdbMQ2kIX5ixXrfaYSxiBTeJMKmJtNmu4od f688fKTzl3asKFBVpeyf zTx1mEzrD56tp4C9RwfvH19isIVeYWI6YTWpZIAmqLCpAMKiAZH9XQSwfZOkE5ijLTCeWZ6scizwNXwx RAksULJbgCW5LRCemYNa X1QoNLXaVKmrIOTuthh3BcAuFf9hvBGylNzkOJzeWwwdcBwmm2EvbEUzGGnyYHLvOGBiKUsvvslpYAq8 JUBkDDzsvIRhWQ1gaIvx OeykqDljk5EodHMkNBsiFVArYEYqEQblOIXxD4VXDVXdTUz2SPI8SyWvLKm2FNd4XO2DLpPzQDJlCfl5 OGT8UlJtOTu1CGmaPT5Z KCPsRoK2FCI2JsduIPL3KyGbVXwhcIUrTIXcIwOeRLOxGEXnFXvlzILsKZ5ezMdxBUTrLGHlYvXaFHJd R6coVvPcKTYhHVmpULDg QzMhZTvgSiEbZKf4VGDgkX9xIv4mzLTtsC7nETxaNcZxXUNvf2e9xZL9mDJwiNK8pRPsuNksFE3ftSHa DL6fRAima4MmvRVzJU28 wUXpfpRugmAeYdFJe4vjJXJHAfiqIQCnAIK0lrClcyDbcEBqmPRtp7BskLZhLDSen1E0DWHsz5I3TFPj A9yrPIpqvHosQlT5gfTn ZY00WCdwWT6iVHfbFK6yPFLsUcWQkMZyi7EoC5azCE6pyNNel3OqiDz4tWHfAMhwAAWuyX9hxB5kn56p VFJsg5FgrZMfEhfdGPAm jUOaTMLQDRDdWhKXTDOcmvrrXQBnXZZegAURa0KoOYcjUAXwY3UnH7TeaeP8WOZscofzZcmxwIefg4Wq dCBcXGlkIDUxMDAyIFxc TAHfO0NJLTInCKn6WEV8FcXlBYq5OPq2PT8JJjXbTFGzVld7XTT4PhQiYWg9RJpkIE4LBZLxUpN3AHY2 UPBcJDV1IfVpJNirwZXk BJKwOvMxGHGnOIIxONofyPYlUX1srAftADRjHYMmZFE7OBEpsWZIg6DlZxRepKvnaG8xGxIuQWUMOvGY HDArjGNoRMKnkySvn6Rx CKkajjbajFImPQliLHH5fGNpWAOcIDXhNFSzNK69U2FguiErTSPxdnZvaJ7msJq5SEgiisBdTeFpKEPb XJZcHBVnhKXdwZUmDu5g XBliSQC9dB6bhUWwjjNxcE3jTVHuxrQtaAdjCUEwFGfsUN69zfWlFdP8AF5uELVeNsXkxTpmm6HsYMVh X5JtW4U7vF1tQWUmDHAj BsPfwLPtQoFojGRdSiZgL38tPOYnYWIctXJdiX3rrnZqqaLcdGZngBU5YYXbrK7fbM46vcWnhzNgwfAc A2Npn6X6rSTpMWRkuaev ATZnNSVNYy3MY8GgfQPcZAJkJmIxFTKvG9gpRYBeENW9FLTpdUNlDMA5CQ2jpGalTURcZ6QmF1DwkpY7 XHBhcn0=[facility] Work Phone: Pathology report relevant history Narrative l7smjQBmACFhnZAsUVebJawlpzVcXIObuQVoR5LglvacAZenNT6kVR4juJvmeKPerFGmJSSeArTxy0ut a172rTPxm7itCVRKfcqv xFy7yQghD67ny4Z1YxzmQ54dqYUtLVO2RIOnKOLtqPZiQVVmHBP4MCRkoEFuA5yxOKHkUW6gqakvGWkf HMawUMKwpPH1RPJyqCYo G9RkAANwMAhzBQTzqeb3PcApCc6xcNXywXxfMVukVMYnBSMoKDobNSOvJeVfTDMguQLwBYUbU5FdbHHo aPawXF9jygLmj5waFUQt pQAnDTEZYz4WF1OlGRfMRoqbEW9myTFxLSRyLOZ1PJa1YHYrHTMwubGESDzyNNJbYHnaECYnORdtCJAb MerkYSKryPJcsTKbMr6cSWkdn6DdqZTalhFdebZrUT3ZeCoxriwajYOhfU==Arfsoksasz [facility] Work Phone: [facility] Work Phone: [facility]NFair[facility] [phone] (GASTNO) CHIOMA ALONZO ([id number]) 2000 F Date Time Provider Department 04/24/24 [...] 11/15/2023 Encounter Status:Closed by GISELA PONCE on 04/24/24[facility] Study observation Narrativeon [id number] formatting from the original result was not [...] Ambriz MD MPH 04/16/2024 1016 Procedure Location [facility] [address] [facility] [address] Referring Provider Whitney Ambriz MD MPH Procedure Provider Whitney Ambriz MD MPH [facility] Work Phone: Radiology Study observation (narrative)[facility] Work Phone: EGD Study observation NarrativeOrdered By: Whitney Ambriz on [id number] [facility] Work Phone: hcg ( test) Ql (U)on 25-94-1636Pgrfpsaayneeei and review of laboratory resultsNormalUniTriHealth Good Sam[facility] Work Phone: Preu Test, UrNegativeNegativeUnLakeHealth TriPoint Medical Center Work Phone: UnLake[facility] Work Phone: CNOVon [id number] Visit ([facility]) CHIOMA ALONZO ([id number]) 2000 F Date Time Provider Department 03/26/24 11:00 AM PAULA PRETTY [facility] During your visit today, we recorded [...] 11/15/2023 Encounter Status:Closed by PAULA PRETTY on 03/26/24NormalCeast liver[facility] hospitaland [facility]No Panel Informationon [id number] [facility] diff Tox gens Stl Ql RUCHI+probeon 03-13-2024. difficile toxin genes RUCHI+probe Ql (Stl)NegativeNormal Negative for C. difficile toxin by PCRAcmc Healthcare SystemComment on above:Order Comment: Specimen Type: STOOL SPECIMENOrdering Facility: [facility] Address:[address] [place], [place] [address]Performed By: #### [id number] ####[facility] LABCLIA [id number] [place] [address] [place]. DIFFICILE PCRon 03-13-2024. difficile toxin genes RUCHI+probe Ql (Stl)NegativeNegative for C. difficile toxin by PCRRegency Hospital Company. difficile toxin genes RUCHI+probe Ql (Stl)on 10-49-3073Dyhzkcbiqvcyec and review of laboratory resultsNormalCleveland Glenbeigh HospitalCNOVon 86-49-9895EVNOXrkikr Visit (GGENMN) CHIOMA ALONZO ([id number]) 2000 F Date Time Provider Department 02/26/24 [...] HISTORY No date: COLONOSCOPY (more content not included)...[facility] upper Views W barium contrast Aime [id number]: Mild gastroesophageal reflux and mild esophageal dysmotility. Otherwise, unremarkable upper GI series. Incident Manager: FRANCISCO Transcribe Date/Time: Feb 11 2024 11:34A Dictated by : ANJALI HALEY MD This examination was interpreted and the report reviewed and electronically signed by: ANJALI HALEY MD on Feb 11 2024 4:03PM [facility] RAD[facility]* * *Final Report* * * DATE [...] somewhat limited assessment of the gastric cardia/fundus. [facility]ANO RADIOLOGYProvider, f Imaging R[place] - 02/11/2024 * * *Final Report* * [...] esophageal dysmotility. Otherwise, unremarkable upper GI series. Incident Manager: FRANCISCO Transcribe Date/Time: Feb 11 2024 11:34A Dictated by : ANJALI HALEY MD This examination was interpreted and the report reviewed and electronically signed by: ANJALI HALEY MD on Feb 11 2024 4:03PM EST [facility] (narrative)[facility] CenterRF Gastrointestinal tract upper Views W barium contrast POOrdered By: Ccf Provider on 29-58-3374Ppyozohoi ClinicXR UPPER GI SINGLE CONTRASTon [id number] UPPER GI SINGLE CONTRAST* * *Final Report* [...] esophageal dysmotility. Otherwise, unremarkable upper GI series. Incident Manager: FRANCISCO Transcribe Date/Time: Feb 11 2024 11:34A Dictated by : ANJALI HALEY MD This examination was interpreted and the report reviewed and electronically signed by: ANJALI HALEY MD on Feb 11 2024 4:03PM EST [id number] Springs Behavioral Health HospitalNM GASTRIC EMPTYING SOLIDon [id number] GASTRIC EMPTYING SOLID* * *Final Report* * [...] which lowers the sensitivity of the study. Incident Manager: FRANCISCO Transcribe Date/Time: Jan 30 2024 2:09P Dictated by : JOSELUIS MORA MD This examination was interpreted and the report reviewed and electronically signed by: JOSELUIS MORA MD on Jan 30 2024 2:10PM [facility] [id number] [facility] Sinai Hospital Stomach Views for gastric emptying solid phase W radionuclide Aime 40-18-9905ULSSWMTOUN: Normal rate of gastric emptying of a solid meal. However patient consumed less than the standard meal, which lowers the sensitivity of the study. Incident Manager: FRANCISCO Transcribe Date/Time: Jan 30 2024 2:09P Dictated by : JOSELUIS MORA MD This examination was interpreted and the report reviewed and electronically signed by: JOSELUIS MORA MD on Jan 30 2024 2:10PM [facility] RADIOLOGY* * *Final Report* * * DATE [...] retention at 4 hours (normal range, 0-10%). [facility] RADIOLOGYCopley HospitalviSt[facility] [place] - 01/30/2024 * * *Final Report* * [...] which lowers the sensitivity of the study. Incident [facility] Transcribe Date/Time: Jan 30 2024 2:09P Dictated by : JOSELUIS MORA MD This examination was interpreted and the report reviewed and electronically signed by: JOSELUIS MORA MD on Jan 30 2024 2:10PM [facility] (narrative)[facility] Stomach Views for gastric emptying solid phase W radionuclide POOrdered By: Ccf Provider on 71-11-2324Hxqfqodjx ClinicCNPNon 48-87-5327DFZCHqnfawqux (MODESTO) CINDYCHIOMA Newberry Jovana ([id number]) 2000 F Date Time Provider Department 01/29/24 [...] 11/15/2023 Encounter Status:Closed by VITOR HARP on 01/29/24[facility] 16-79-4007JRldmiiqh: [id number] Received: 01/02/24 Status: TRUDY Mosley Num: [id number] Spec Type: Surgical Subm Dr: Ana Bolton DO Tissues: A Appendix - Other than Incidental (APPENDIX) Procedures: HE/2, Gross/Micro L3 Age/ Patient Sex Location Account Attending Physician Chioma Alonzo 23/F [place]E[facility] [id number] Ana Bolton DO SPEC NUM: [id number] RECD: 01/02/24 STATUS: TRUDY MOSLEY NUM: [id number] RAQUEL: 01/01/[address]: Ana Bolton DO ENTERED: 01/02/24 [facility] DR: Verena Bettencourt SPEC TYPE: Surgical DEPT: [...] masses or areas of perforation are identified. Licensed And Certified Midwife sections are submitted in A1 (base and midportion)?A2 (entire distal tip). CPT Codes 56433 Specimen: [id number] Received: 01/02/24 Status: TRUDY Mosley Num: [id number] Spec Type: Surgical Subm Dr: Ana Bolton, Tissues: A Appendix - Other than Incidental (APPENDIX) Procedures: MARI/Tiffanie Morris/Laxmi L3 Patient: Chioma Alonzo [id number] (Continued) Signed (signature on file) Deanne Cabello MD 01/03/[address] [place] [address] Physician GroupSurgical PathologyOrdered By: Jasmin Hatch on 72-15-0846WdgCqcqkfWooster Community HospitalCNOVon 80-60-2957DPWDTjsvvq Visit ([facility]) CHIOMA ALONZO ([id number]) 2000 F Date Time Provider Department 12/28/23 3:00 PM DARA BUTLER JR [facility] During your visit today, we recorded [...] last colonoscopy was 8 months ago in [place]. Start amitriptyline Keep appt with Dr. Menon [...] divisum. 12/01/22 HIDA scan was done at [facility]: Normal study EF 69% US: 10/31/22: (care everywhere) Liver normal Gallbaldder appears normal with no stones or sludge. No gallblad (more content not included)...NormalAcmc Healthcare SystemAmylase SerPl-cCncon 12-27-2023 Amylase [Catalytic activity/Vol]44 U/DYrcjef50-099NpeochmbdAcmc Healthcare System Comment on above:Order Comment: Specimen Type: BLOOD SPECIMENOrdering Facility: [facility] Address:[address] [place] [address] Performed By: #### 1798-8, 1987-, 3040-3 ####[facility] LABCLIA [id number] [facility] [place]14DPVMFY[place] [address] [place] OF AMERICABasophils Auto (Bld) [#/Vol]on 91-18-9736Uwpaujqpe (Bld) [#/Vol]0.04 10*3/uL<0.11[facility]hillBasophils/100 WBC Auto (Bld)on 14-58-5039Ltqjoftxw/100 WBC (Bld)0.8 %[facility]-FairhillBlood manual differential comment interpretation narrativeon 03-10-2695Agltwn differential comment Ganga (Bld) [Interp]AutoSelect Medical Specialty Hospital [facility] Cleveland-FairhillCB W Auto Differential panel (Bld)on 03-05-7435Vqobguxxy (Bld) [#/Vol]0.04 10*3/uL Normal<0.11CLancaster Municipal HospitalComment on above:Order Comment: Specimen Type: BLOOD SPECIMENOrdering Facility: [facility] Address:[address] [place], [place] [address]Performed By: #### 48684-2 ####[facility] LABCLIA [id number] [place] [address] Basophils/100 WBC (Bld)0.8 %NormalRiverview Health Institute on above: Order Comment: Specimen Type: BLOOD SPECIMENOrdering Facility: [facility] Address:[address] [place], [place] [address]Performed By: #### 27408- 8 ####[facility] LABCLIA [id number] [place], [place] [address]Inwlelwtbgsv cell count method Nom (Bld)AutoNormal [facility] on above:Order Comment: Specimen Type: BLOOD SPECIMENOrdering Facility: [facility] Address:[address] [place], [place] [address]Performed By: #### 27098-0 ####[facility] LABCLIA [id number] [place], [place] [address]Rgajutaforq (Bld) [#/Vol]0.22 10*3/uLNormal<0.46[facility] on above: Order Comment: Specimen Type: BLOOD SPECIMENOrdering Facility: [facility] Address:[address] [place], [place] [address]Performed By: #### 35726- 8 ####[facility] LABCLIA [id number] [place], [place] [address]Virarlqvqsk/100 WBC (Bld)4.3 %NormalRiverview Health Institute on above:Order Comment: Specimen Type: BLOOD SPECIMENOrdering Facility: [facility] Address:[address] [place], [place] [address]Performed By: #### 02451-1 ####[facility] LABCLIA [id number] [place], [place] [address]Rbnqwdwqbps distribution width (RBC) [Ratio]11.6 %Xxigvs15.5-15.0[facility] on above: Order Comment: Specimen Type: BLOOD SPECIMENOrdering Facility: [facility] Address:[address] [place], [place] [address]Performed By: #### 72856- 8 ####[facility] LABCLIA [id number] [place], [place] [address]Nqmdmrqhyh (Bld) [Volume fraction]41.5 %Gjikkh75.0-46.0 [facility] on above:Order Comment: Specimen Type: BLOOD SPECIMENOrdering Facility: [facility] Address:[address] [place], [place] [address]Performed By: #### 48276-0 ####[facility] LABCLIA [id number] [place], [place] [address]Oirorektpz (Bld) [Mass/Vol]14.1 g/tQJqnmdj40.5-15.5CGrand [facility] Joint [facility] District [facility] on above: Order Comment: Specimen Type: BLOOD SPECIMENOrdering Facility: [facility] Address:[address] [place], [place] [address]Performed By: #### 64792- 8 ####[facility] LABIA [id number] [place], [place] [address]Tiywxkac granulocytes (Bld) [#/Vol]10*3/uLNormal<0.10 [facility] on above:Order Comment: Specimen Type: BLOOD SPECIMENOrdering Facility: [facility] Address:[address] [place], [place] [address]Performed By: #### 00499-2 ####[facility] LABCLIA [id number] [place], [place] [address]Wvmxdyvf granulocytes/100 WBC (Bld)0.2 %NormalRiverview Health Institute on above: Order Comment: Specimen Type: BLOOD SPECIMENOrdering Facility: [facility] Address:[address] [place], [place] [address]Performed By: #### 04152- 8 ####[facility] LABCLIA [id number] [place], [place] [address]Nryeuifvsom (Bld) [#/Vol]2.06 10*3/uLNormal1.00-4.00 [facility] on above:Order Comment: Specimen Type: BLOOD SPECIMENOrdering Facility: [facility] Address:[address] [place], [place] [address]Performed By: #### 56214-7 ####[facility] LABCLIA [id number] [place], [place] [address]Stjzyrlrapf/100 WBC (Bld)39.8 %NormalRiverview Health Institute on above:Order Comment: Specimen Type: BLOOD SPECIMENOrdering Facility: [facility] Address:[address] [place], [place] [address]Performed By: #### 38076-6 ####[facility] LABCLIA [id number] [place], [place] [address]MKW (RBC) [Entitic mass]31.5 ojIeygpq87.0-34.0[facility] on above:Order Comment: Specimen Type: BLOOD SPECIMENOrdering Facility: [facility] Address:[address] [place], [place] [address]Performed By: #### 19914-2 ####[facility] LABCLIA [id number] [place], [place] [address]CVJS (RBC) [Mass/Vol]34.0 g/iGEsaugp68.5-36.0[facility] on above: Order Comment: Specimen Type: BLOOD SPECIMENOrdering Facility: [facility] Address:[address] [place], [place] [address]Performed By: #### 81822- 8 ####[facility] LABCLIA [id number] [place], [place] [address]TCA (RBC) [Entitic vol]92.6 lOKmgrqn63.0-100.0[facility] on above:Order Comment: Specimen Type: BLOOD SPECIMENOrdering Facility: [facility] Address:[address] [place], [place] [address]Performed By: #### 28559-5 ####[facility] LABCLIA [id number] [place], [place] [address]Vdgrktabr (Bld) [#/Vol]0.42 10*3/uLNormal<0.87[facility] on above:Order Comment: Specimen Type: BLOOD SPECIMENOrdering Facility: [facility] Address:[address] [place], [place] [address]Performed By: #### 62525- 8 ####[facility] LABCLIA [id number] [place], [place] [address]Fvvuckddj/100 WBC (Bld)8.1 %NormalRiverview Health Institute on above:Order Comment: Specimen Type: BLOOD SPECIMENOrdering Facility: [facility] Address:[address] [place], [place] [address]Performed By: #### 99271-3 ####[facility] LABCLIA [id number] [place], [place] [address]Hojpjtbvgzi (Bld) [#/Vol]2.42 10*3/uLNormal1.45-7.50[facility] on above:Order Comment: Specimen Type: BLOOD SPECIMENOrdering Facility: [facility] Address:[address] [place], [place] [address]Performed By: #### 89908-2 ####[facility] LABCLIA [id number] [place], [place] [address]Kqeztdmdthk/100 WBC (Bld)46.8 %NormalRiverview Health Institute on above:Order Comment: Specimen Type: BLOOD SPECIMENOrdering Facility: [facility] Address:[address] [place], [place] [address]Performed By: #### 94412-9 ####[facility] LABCLIA [id number] [place], [place] [address]Vsutifdls RBC (Bld) [#/Vol] 10*3/uLNormal<0.01[facility] on above:Order Comment: Specimen Type: BLOOD SPECIMENOrdering Facility: [facility] Address:[address] [place], [place] [address]Performed By: #### 70342-6 ####[facility] LABCLIA [id number] [place], [place] [address]Tdtgbnecp RBC/100 WBC (Bld) [Ratio]0.0 /100 WBCNormal [facility] on above:Order Comment: Specimen Type: BLOOD SPECIMENOrdering Facility: [facility] Address:[address] [place], [place] [address]Performed By: #### 60444-2 ####[facility] LABIA [id number] [place], [place] [address]Ayyzykih mean volume (Bld) [Entitic vol]10.5 fLNormal9.0-12.7CGrand [facility] Joint [facility] Hospital on above:Order Comment: Specimen Type: BLOOD SPECIMENOrdering Facility: [facility] Address:[address] [place] [address] Performed By: #### 71328-7 ####[facility] LABIA [id number] [place], [place] [address]Onrjgdaaf (Bld) [#/Vol]179 10*3/dRJmzzyw317-291CliqfpqemRiverview Health Institute on above:Order Comment: Specimen Type: BLOOD SPECIMENOrdering Facility: [facility] Address:[address] [place], [place] [address]Performed By: #### 39394-6 ####[facility] LABCLIA [id number] [place], [place] [address]ZZR (Bld) [#/Vol]4.48 10*6/uLNormal3.90-5.20[facility] on above:Order Comment: Specimen Type: BLOOD SPECIMENOrdering Facility: [facility] Address:[address] [place], [place] [address]Performed By: #### 59879-9 ####[facility] LABCLIA [id number] [place], [place] [address]YUK (Bld) [#/Vol]5.17 10*3/uLNormal3.70-11.00[facility] on above: Order Comment: Specimen Type: BLOOD SPECIMENOrdering Facility: [facility] Address:[address] [place], [place] [address]Performed By: #### 25260- 8 ####[facility] LABIA [id number] [place], [place] [address]DNF SerPl-mCncon 25-54-7396WIN [Mass/Vol]mg/LNormal<0.9 [facility] on above:Order Comment: Specimen Type: BLOOD SPECIMENOrdering Facility: [facility] Address:[address] [place], [place] [address]Performed By: #### 1798-8, 1987-5, 3040-3 ####[facility] LABCLIA [id number] [place] [address] [id number] [place] OF AMERICAComprehensive metabolic 2000 panelon 12-27-2023 Albumin [Mass/Vol]4.6 g/dLNormal3.9-4.9CGrand [facility] Joint Township District [facility] Hospital on above:Order Comment: Specimen Type: BLOOD SPECIMENOrdering Facility: [facility] Address:[address] [place], [place] [address]Performed By: #### 99120-9 ####[facility] LABIA [id number] [place], [place] [address]YQZ [Catalytic activity/Vol]53 U/AFtintw52-001 [facility] on above:Order Comment: Specimen Type: BLOOD SPECIMENOrdering Facility: [facility] Address:[address] [place], [place] [address]Performed By: #### 99705-6 ####[facility] LABCLIA [id number] MARCELA PRAVEENCOPPER SPRINGS HOSPITALGENETMALONE, [place] [address]QIW [Catalytic activity/Vol]9 U/LNormal7-38[facility] on above:Order Comment: Specimen Type: BLOOD SPECIMENOrdering Facility: [facility] Address:[address] [place], [place] [address]Performed By: #### 45373- 8 ####[facility] LABCLIA [id number] [facility] [place], [place] [address]Ibtsi gap [Moles/Vol]6 mmol/LLow8-15[facility] on above:Order Comment: Specimen Type: BLOOD SPECIMENOrdering Facility: [facility] Address:[address] [place], [place] [address]Performed By: #### 05168-4 ####[facility] LABCLIA [id number] [facility] ADYFERNANDACOPPER SPRINGS HOSPITALEZEKI[place], [place] [address]IDM [Catalytic activity/Vol]14 U/FBttztk78-24MwokeqsxpRiverview Health Institute on above:Order Comment: Specimen Type: BLOOD SPECIMENOrdering Facility: [facility] Address:[address] [place], [place] [address]Performed By: #### 07702-1 ####[facility] LABCLIA [id number] [facility] ADYFERNANDACOPPER SPRINGS [place] [address] Bilirubin [Mass/Vol]0.5 mg/dLNormal0.2-1.3CGrand [facility] Joint [facility] on above:Order Comment: Specimen Type: BLOOD SPECIMENOrdering Facility: [facility] Address:[address] [place], [place] [address]Performed By: #### 19299-0 ####[facility] LABCLIA [id number] [facility] MED[facility] CENTERFERNANDAPLATTE [place], [place] [address]Syqdzcp [Mass/Vol]10.2 mg/dLNormal8.5-10.2CGrand [facility] Joint [facility] District [facility] on above:Order Comment: Specimen Type: BLOOD SPECIMENOrdering Facility: [facility] Address:[address] [place], [place] [address]Performed By: #### 28105-2 ####[facility] LABCLIA [id number] [place], [place] [address]Wxehznwn [Moles/Vol]103 mmol/ZHxgmoy92-267KetwpsszaRiverview Health Institute on above: Order Comment: Specimen Type: BLOOD SPECIMENOrdering Facility: [facility] Address:[address] [place], [place] [address]Performed By: #### 96044- 8 ####[facility] LABCLIA [id number] [place], [place] [address]MX9 [Moles/Vol]28 mmol/VCgeild55-04YhagdypewRiverview Health Institute on above:Order Comment: Specimen Type: BLOOD SPECIMENOrdering Facility: [facility] Address:[address] [place], [place] [address]Performed By: #### 48302-4 ####[facility] LABCLIA [id number] [place], [place] [address]Bqytpxjuko [Mass/Vol]0.68 mg/dL Normal0.58-0.96[facility] on above:Order Comment: Specimen Type: BLOOD SPECIMENOrdering Facility: [facility] Address:[address] [place], [place] [address]Performed By: #### 36690-8 ####[facility] LABCLIA [id number] [place], [place] [address]Cgabmlognh and Glomerular filtration rate.predicted panel (S/P/Bld)124 mL/min/1.73m???Normal>=60[facility] on above:Order Comment: Specimen Type: BLOOD SPECIMENOrdering Facility: [facility] Address:[address] [place], [place] [address]Result Comment: Estimated Glomerular Filtration Rate (eGFR) is [...] not accurately reflect actual GFR.Performed By: #### 73893-6 ####[facility] LABCLIA [id number] [place], [place] [address]Yscpspc [Mass/Vol]97 mg/aZIofpfb98-07UxirfmhzwRiverview Health Institute on above:Order Comment: Specimen Type: BLOOD SPECIMENOrdering Facility: [facility] Address:[address] [place] [address]Skwtce Comment: The [place] Diabetes Association (ADA) provides guidance for cutoff [...] Standards of Medical Care in Diabetes 2016, [place] Diabetes Association. Diabetes Care. 2016.39(Suppl 1).Performed By: #### 37993-2 ####[facility] LABCLIA [id number] [place], [place] [address]Ywfelskoa [Moles/Vol]4.3 mmol/LNormal3.7-5.1CGrand Lake Joint Township District [facility] on above:Order Comment: Specimen Type: BLOOD SPECIMENOrdering Facility: [facility] Address:[address] [place], [place] [address]Qeutwvwfv By: #### 99321-7 ####[facility] LABCLIA [id number] [place], [place] [address]Ielpvkq [Mass/Vol]7.2 g/dLNormal6.3-8.0[facility] on above:Order Comment: Specimen Type: BLOOD SPECIMENOrdering Facility: [facility] Address:[address] [place], [place] [address]Performed By: #### 40085- 8 ####[facility] LABCLIA [id number] [place], [place] [address]Ylmofz [Moles/Vol]137 mmol/UTivscx798-465UcdvdojbgRiverview Health Institute on above:Order Comment: Specimen Type: BLOOD SPECIMENOrdering Facility: [facility] Address:[address] [place], [place] [address]Performed By: #### 88383-0 ####[facility] LABCLIA [id number] [place], [place] [address]Jmvw nitrogen [Mass/Vol]13 mg/dLNormal7-21[facility] on above:Order Comment: Specimen Type: BLOOD SPECIMENOrdering Facility: [facility] Address:[address] [place], [place] [address]Performed By: #### 78940-8 ####[facility] LABCLIA [id number] [place], [place] [address]CAF Westergren method (Bld) [Velocity]on 91-97-6504ITU (Bld) [Velocity]12 mm/hNormal0-20[facility] on above: Order Comment: Specimen Type: BLOOD SPECIMENOrdering Facility: [facility] Address:[address] [place], [place] [address]Performed By: #### 4537-7 ####[facility] LABCLIA [id number] [facility] W46NBABUTNWNKIMBERLY VILLE [address] [place] OF AMERICAEosinophils/100 WBC Auto (Bld)on 35-73-8456Dnlahbcidpa/100 WBC (Bld)4.3 %[facility] Erythrocyte distribution width Auto (RBC) [Ratio]on 56-72-5591Goqrptagdxn distribution width (RBC) [Ratio]11.6 %11.5-15.0[facility] Hematocrit Auto (Bld) [Volume fraction]on 67-11-0610Vixkjxtcmy (Bld) [Volume fraction]41.5 %36.0-46.0[facility]-FairhillHemoglobin [Mass/volume] in Bloodon 56-32-0835Fxbsfganmk (Bld) [Mass/Vol]14.1 g/dL11.5-15.5 [facility]-FairhillLaboratory - Chemistry and Chemistry - challengeon 99-78-8279Uqkllgk [Mass/Vol]4.6 g/dL3.9-4.9[facility]FairhillALP [Catalytic activity/Vol]53 U/Y53-750KrnmtblunSelect Medical Specialty Hospital - Cleveland-FairhillALT [Catalytic activity/Vol]9 U/L7-38[facility] Amylase [Catalytic activity/Vol]44 U/E04-680KtzxhendfSelect Medical Specialty Hospital [facility] Cleveland-FairhillAST [Catalytic activity/Vol]14 U/N42-19DnsymchysSelect Medical Specialty Hospital - Cleveland-FairhillBilirubin [Mass/Vol]0.5 mg/dL0.2-1.3FTriHealth McCullough-Hyde Memorial HospitalCalcium [Mass/Vol] 10.2 mg/dL8.5-10.2FTriHealth McCullough-Hyde Memorial HospitalChloride [Moles/Vol]103 mmol/F32-996PoltewfikSelect Medical Specialty Hospital - Cleveland-FairhillCO2 [Moles/Vol]28 mmol/L22-30 [facility]-FairhillCreatinine [Mass/Vol]0.68 mg/dL0.58-0.96 [facility]-FairhillGlucose [Mass/Vol]97 mg/kS53-08QuvvcxbfoSelect Medical Specialty Hospital - Cleveland-FairhillComment on above:The [place] Diabetes Association (ADA) provides guidance for cutoff [...] diabetes.Reference: Standardsof Medical Care in Diabetes 2016, [place] Diabetes Association. Diabetes Care. 2016.39(Suppl 1).Lipase [Catalytic activity/Vol]22 U/M71-34UfyjhclsuSelect Medical Specialty Hospital - Cleveland-FairhillPotassium [Moles/Vol]4.3 mmol/L3.7-5.1 [facility] Health Centerodium [Moles/Vol]137 mmol/N474-643SbtidgjnrSelect Medical Specialty Hospital - Cleveland-FairhillUrea nitrogen [Mass/Vol]13 mg/dL7-21[facility]-FairhillLaboratory - Hematology and Cell countson 80-90-0147Qylhbxfimqd (Bld) [#/Vol]0.22 10*3/uL<0.46[facility]-FairhillESR (Bld) [Velocity]12 mm/h0-20[facility]-FairhillImmature granulocytes/100 WBC (Bld)0.2 %[facility]-FairhillLeukocytes [#/volume] corrected for nucleated erythrocytes in Blood by Automated counon 33-19-2242HPY corrected for nucl RBC Auto (Bld) [#/Vol]5.17 k/uL3.70-11.00[facility]-FairhillLipase SerPl-cCncon 92-54-7340Zxyvhf [Catalytic activity/Vol]22 U/LNormal 16-61[facility]cmc Healthcare SystemComment on above:Order Comment: Specimen Type: BLOOD SPECIMENOrdering Facility: [facility] Address:[address] [place], [place] [address]Performed By: #### 1798-8, 5, 3040-3 ####[facility] LABCLIA [id number] [place] [address] [place] OF AMERICALymphocytes Auto (Bld) [#/Vol]on 12-27-2023 Lymphocytes (Bld) [#/Vol]2.06 10*3/uL1.00-4.00[facility] Lymphocytes/100 WBC Auto (Bld)on 15-13-2752Npdwaqgyapv/100 WBC (Bld)39.8 % [facility] Cleveland-FairhillMCH Auto (RBC) [Entitic mass]on 08-68-0344GNJ (RBC) [Entitic mass]31.5 pg26.0-34.0[facility]-FairhillMCHC Auto (RBC) [Mass/Vol]on 75-88-7202QEWW (RBC) [Mass/Vol]34.0 g/dL30.5-36.0[facility]-FairhillMCV Auto (RBC) [Entitic vol]on 30-35-5988AFZ (RBC) [Entitic vol]92.6 fL80.0-100.0[facility]-FairhillMonocytes Auto (Bld) [#/Vol]on 24-63-9489Whzkuqsjv (Bld) [#/Vol]0.42 10*3/uL<0.87[facility]-FairhillMonocytes/100 WBC Auto (Bld)on 69-86-8724Dfhceztno/100 WBC (Bld)8.1 %[facility]-FairhillNeutrophils Auto (Bld) [#/Vol]on 32-50-5586Qnehfmoahmi (Bld) [#/Vol]2.42 10*3/uL1.45-7.50[facility]-FairhillNeutrophils/100 WBC Auto (Bld)on 90-08-8214Nopihtcjoak/100 WBC (Bld)46.8 %[facility]-FairhillNo Panel Informationon 74-85-2788N- Reactive Protein, Quantitative<0.3 mg/dL<0.9[facility] Estimated GFR (CKD-EPI)124 mL/min/1.73m???>=60[facility] Comment on above:Estimated Glomerular Filtration Rate (eGFR) [...] # (Auto)<0.03 k/uL<0.10[facility]-FairhillNucleated RBC Auto (Bld) [#/Vol]on 03-84-0942Wlreusyst RBC (Bld) [#/Vol]10*3/uL<0.01 [facility]-FairhillNucleated erythrocytes [Presence] in Blood by Automated counton 87-95-1987Havzehfnf RBC Auto Ql (Bld)0.0 /100{WBC}[facility]-FairhillPlatelet mean volume Auto (Bld) [Entitic vol]on 91-76-3795Ehimfcqu mean volume (Bld) [Entitic vol]10.5 fL9.0-12.7FTriHealth McCullough-Hyde Memorial HospitalPlatelets Auto (Bld) [#/Vol]on 85-38-1893Dmmrjsfmx (Bld) [#/Vol]179 10*3/oF619-577OpchokpidSelect Medical Specialty Hospital - [place]-FairhillProtein [Mass/volume] in Serum or Plasmaon 18-39-8141Jvkjtvr [Mass/Vol]7.2 g/dL6.3-8.0[facility]-FairhillRBC Auto (Bld) [#/Vol]on 39-62-1138CYO (Bld) [#/Vol]4.48 10*6/uL3.90-5.20[facility] Centererum or plasma anion gap determinationon 46-32-4634Klrrf gap [Moles/Vol]6 mmol/LLow8-15[facility]-FairhillCNCOon 78-51-1698ONWSFdunal TextNormalCLancaster Municipal Hospital CNOVon 15-22-0637AOHERcmatu Visit ([id number]) CHIOMA ALONZO ([id number]) 2000 F Date Time Provider Department 12/05/23 2:00 PM ARIELLA MCCOY [id number] During your visit today, we recorded the [...] Ariella Mccoy APRN.CNP Referring Provider: ANALIA HOLLIDAY [[id number]] Allergies As of Date: 12/05/2023 Noted Allergy Reaction METRONIDAZOLE 09/07/2020 1 - Mental Status Change 6 - Diarrhea 8 - GI Upset 4 - Hives 14 - Other: See Comments 2 - Rash 12 - Shortness of Breath 16 - Unknown 11 - Vomiting Date Reviewed: 12/05/2023 Reviewed by: Ariella Mccoy APRN.LOGGING SUPERVISOR - Fully Assessed Reason for Visit: Post [...] for Encounter Date Provider Department Center 12/05/2023 [id number]-WAGONARIELLA MCCOY [id number] [facility] Encounter Status:Closed by ARIELLA MCCOY on 12/05/23[facility]AN[facility] POSTPROC EVALon 36-72-0490AFNT POSTPROC EVALHNO ID: [id number] Author: MOSHE KRISHNAMURTHY DO Service: Anesthesiology Author [...] November 21, 2023 TIME: 5:47 PM CSN: [id number] Behavioral [facility] PRE-OPon 16-94-5724UVSL PRE-OPHNO ID: [id number] Author: MOSHE KRISHNAMURTHY DO Service: Anesthesiology Author [...] November 21, 2023 TIME: 2:08 PM CSN: [id number] [facility] OP NOTon 11-21-2023 BRIEF OP NOTHNO ID: [id number] Author: ANA LLANES MD Service: General Surgery Author Type: Resident Type: Brief Op Note Filed: 11/21/2023 15:32 Note Text: GENERAL SURGERY BRIEF OPERATIVE NOTE Chioma Alonzo [id number] LOG ID: [id number] Surgery/Procedure Date: 11/21/2023 Incision/Procedure Start Time: 2:30 PM Incision Close/Procedure End Time: 3:23 PM Surgeon(s)/Proceduralist(s) and Restoration Officer(s): Surgeon(s) and Role: * Seema Davis MD [...] 21, 2023 TIME: 3:31 PM PAGER/CONTACT #: [phone] HospitalOPERATIVE NOon [id number] NOHNO ID: [id number] Author: SEEMA DAVIS MD Service: General Surgery Author Type: Physician Type: Operative Report Filed: 11/23/2023 14:05 Note Text: [facility] - Operative Report CHIOMA ALONZO : 2000 AGE: 23. SEX: F PATIENT TYPE: A HOSP SV: [facility] LOCATION: [facility] ATTENDING PHYSICIAN: Seema Davis M.D. CSN NUMBER: [id number] DATE OF SURGERY/PROCEDURE: 11/21/2023 INCISION/PROCEDURE START TIME: 2:30 PM INCISION CLOSE/PROCEDURE END TIME: 3:23 PM PREOPERATIVE DIAGNOSIS: Epigastric and right upper quadrant abdominal pain. POSTOPERATIVE DIAGNOSIS: Epigastric and right upper quadrant abdominal pain. SURGEON: Seema Davis M.D. SQUARE DANCE CALLER: Ana Llanes M.D. SURGERY/PROCEDURE: Laparoscopic cholecystectomy. ANESTHESIA: [...] infraumbilical site was closed with a single aluhky-jd-zylbi #0 Vicryl suture, local anesthetic was infiltrated and this was closed in layers with 3-0 Vicryl. The 5 mm sites were closed with 4-0 Monocryl. The wounds were washed and dried and Exofin glue applied. Patient was awakened and taken to Recovery in satisfactory condition. All counts were correct x2. I was present for the entire operation. Seema Davis M.D. :[id number] /[id number] [facility] ED 20-45-4256LK EDHNO ID: [id number] Author: JUAN NIEVES RN Service: Nursing Author [...] REFERRAL (RECOMMENDATION): None Electronically Signed By: Juan RaderMassachusetts Mental Health Center EDHNO ID: [id number] Author: CRISTI WITT RN Service: ? Author [...] REFERRAL (RECOMMENDATION): None Electronically Signed By: Cristi [facility] PATHOLOGYon 65-84-2964DPFZ REPORTHigh Point HospitalComment on above:Order Comment: Specimen Type: TISSUE SPECIMENOrdering Facility: [facility] Address: [address] [place] [address] Comment: Surgical Pathology Report Case: [id number] Authorizing Provider: Seema Davis MD Collected: 11/21/2023 02:39 PM Ordering Location: [facility] Received: 11/22/2023 07:43 AM Operating Room Pathologist: Woodrow Rain MD Specimen: GallbladderPerformed By: #### S ####[facility] LABCLIA [id number] [address] HISTORYHigh Point HospitalComment on above:Order Comment: Specimen Type: TISSUE SPECIMENOrdering Facility: [facility] Address: [address] [place], [place] [address]Result Comment: Pre-op diagnosis: Cholecystitis [K81.9]Performed By: #### S ####[facility] LABCLIA [id number] [address] Hicks StreetComment on above:Order Comment: Specimen Type: TISSUE SPECIMENOrdering Facility: [facility] Address: [address] [place], [place] [address]Result Comment: A. Gallbladder, cholecystectomy: -Gallbladder with no diagnostic abnormality. Performed By: #### S ####[facility] LABCLIA [id number] [address]ETFINAL PERFORMING LAB High Point HospitalComment on above:Order Comment: Specimen Type: TISSUE SPECIMENOrdering Facility: [facility] Address: [address] [place] [address]Mqxeiv Comment: Diagnostic interpretation performed at [facility], [address] [place], [place] [id number] CLIA# [id number] Ultrasound Supervisor: Roverto Coleman M.D.Performed By: #### S ####[facility] LABCLIA [id number] [address] STATES OF AMERICAGROSS DESCRIPTIONA. GallbladderNormHospital for Behavioral MedicineComment on above:Order Comment: Specimen Type: TISSUE SPECIMENOrdering Facility: [facility] Address: [address] [place], [place] [address]Result Comment: Received in formalin designated gallbladder is [...] with a wall thickness of 0.1 cm. Licensed And Certified Midwife sections are submitted in 1 cassette. WE November 22, 2023 11:51 AM Gross examination performed at [facility], [address] [address] [place], [place] [address]Performed By: #### S ####[facility] LABCLIA [id number] [place] [address] [place] AMERICABasophils Auto (Bld) [#/Vol]on 28-83-0712Tnnnmemxm (Bld) [#/Vol]0.04 10*3/uL<0.11[facility]hillBasophils/100 WBC Auto (Bld)on 30-69-6023Iyzywjoam/100 WBC (Bld)0.7 %[facility]-FairhillBlood manual differential comment interpretation narrativeon 19-74-5246Mdktkj differential comment Ganga (Bld) [Interp]AutoSelect Medical Specialty Hospital - Cleveland-FairhillCBC W Auto Differential panel (Bld)on 95-34-4640Nvrvbnfka (Bld) [#/Vol]0.04 10*3/uL NINFCst. francis hospital ClinicBasophils/100 WBC (Bld)0.7 %[facility] Medical CenterDifferential cell count method Nom (Bld)AutoCleveland ClinicEosinophils (Bld) [#/Vol]0.19 10*3/uLNINFRegional Medical CenterEosinophils/100 WBC (Bld)3.4 %[facility] Erythrocyte distribution width (RBC) [Ratio]11.6 %11.5 - 15.0 %[facility] Hematocrit (Bld) [Volume fraction]37.7 %36.0 - 46.0 %[facility] Medical CenterHemoglobin (Bld) [Mass/Vol]12.6 g/dL11.5 - 15.5 g/dLRegional Medical CenterImmature granulocytes (Bld) [#/Vol]NINFClevelAdams County Regional Medical CenterImmature granulocytes/100 WBC (Bld)0.2 % Regional Medical CenterLymphocytes (Bld) [#/Vol]2.43 10*3/uLRegional Medical Center Lymphocytes/100 WBC (Bld)43.6 %[facility]aritan HospitalH (RBC) [Entitic mass]31.9 pg 26.0 - 34.0 pgCSCCI Hospital LimaHC (RBC) [Mass/Vol]33.4 g/dL30.5 - 36.0 g/dL [facility]aritan HospitalV (RBC) [Entitic vol]95.4 fL80.0 - 100.0 fLCLancaster Municipal Hospital Monocytes (Bld) [#/Vol]0.47 10*3/uLNINFRegional Medical CenterMonocytes/100 WBC (Bld) 8.4 %[facility] Medical CenterNeutrophils (Bld) [#/Vol]2.43 10*3/uLRegional Medical Center Neutrophils/100 WBC (Bld)43.7 %[facility] CenterNucleated RBC (Bld) [#/Vol]NINF Regional Medical CenterNucleated RBC/100 WBC (Bld) [Ratio]0.0 %/100 WBCRegional Medical Center Platelet mean volume (Bld) [Entitic vol]10.5 fL9.0 - 12.7 fLCLancaster Municipal Hospital Platelets (Bld) [#/Vol]201 10*3/uLRegional Medical CenterRBC (Bld) [#/Vol]3.95 10*6/uL 3.90 - 5.20 m/[facility] Hospital at SouthwoodsWBC (Bld) [#/Vol]5.57 10*3/[facility] HospitalBasophils (Bld) [#/Vol]0.04 10*3/uLNormal<0.11[facility] Comment on above:Order Comment: Specimen Type: BLOOD SPECIMEN [facility] Address: [address] [place], [place] [address]Performed By: #### 92127-8 #### [facility] CLIA [id number] [address] [place] [address] [place] AMERICABasophils/100 WBC (Bld)0.7 %NormalAv HospitalComment on above:Order Comment: Specimen Type: BLOOD SPECIMEN [facility] Address: [address] [place], [place] [address]Performed By: #### 41984-8 #### [facility] CLIA [id number] [address] [place] [address] [place] AMERICADifferential cell count method Nom (Bld) AutoNormalAvon HospitalComment on above:Order Comment: Specimen Type: BLOOD SPECIMEN [facility] Address: [address] [place], [place] [address]Performed By: #### 58561-7 #### [facility] CLIA [id number] [address] [place] [address] [place] AMERICAEosinophils (Bld) [#/Vol]0.19 10*3/uL Normal<0.46Avon HospitalComment on above:Order Comment: Specimen Type: BLOOD SPECIMEN [facility] Address: [address] [place], [place] [address]Performed By: #### 88941-3 #### [facility] CLIA [id number] [address] [place] [address] [place] AMERICAEosinophils/100 WBC (Bld)3.4 %NormalAv HospitalComment on above:Order Comment: Specimen Type: BLOOD SPECIMEN [facility] Address: [address] [place], [place] [address]Performed By: #### 56839-7 #### [facility] IA [id number] [address] [place] [address] [place] AMERICAErythrocyte distribution width (RBC) [Ratio]11.6 %Aqlqju83.5-15.0Avon HospitalComment on above:Order Comment: Specimen Type: BLOOD SPECIMEN [facility] Address: [address] [place], [place] [address]Performed By: #### 50722-7 #### [facility] IA [id number] [address] [place] [address] [place] AMERICAHematocrit (Bld) [Volume fraction]37.7 % Wgvzfd88.0-46.0Av HospitalComment on above:Order Comment: Specimen Type: BLOOD SPECIMEN [facility] Address: [address] [place], [place] [address]Performed By: #### 80120-5 #### [facility] IA [id number] [address] [place] [address] [place] AMERICAHemoglobin (Bld) [Mass/Vol]12.6 g/dL Xpfycp17.5-15.5Avon HospitalComment on above:Order Comment: Specimen Type: BLOOD SPECIMEN [facility] Address: [address] [place], [place] [address]Performed By: #### 88179-3 #### [facility] IA [id number] [address] [place] [address] [place] AMERICAImmature granulocytes (Bld) [#/Vol] 10*3/uLNormal<0.10Avon HospitalComment on above:Order Comment: Specimen Type: BLOOD SPECIMEN [facility] Address: [address] [place], [place] [address]Performed By: #### 90997-7 #### [facility] IA [id number] [address] [place] [address] [place] AMERICAImmature granulocytes/100 WBC (Bld)0.2 % NormalAv HospitalComment on above:Order Comment: Specimen Type: BLOOD SPECIMEN [facility] Address: [address] [place], [place] [address]Performed By: #### 89975-3 #### [facility] CLIA [id number] [address] [place] [address] [place] AMERICALymphocytes (Bld) [#/Vol]2.43 10*3/uL Normal1.00-4.00Av HospitalComment on above:Order Comment: Specimen Type: BLOOD SPECIMEN [facility] Address: [address] [place], [place] [address]Performed By: #### 88126-6 #### [facility] IA [id number] [place] [address] [place] OF AMERICALymphocytes/100 WBC (Bld)43.6 %NormalAv HospitalComment on above:Order Comment: Specimen Type: BLOOD SPECIMEN [facility] Address: [address] [place], [place] [address]Performed By: #### 31924-9 #### [facility] IA [id number] [address] [place] [address] [facility] (RBC) [Entitic mass]31.9 pgNormal 26.0-34.0Av HospitalComment on above:Order Comment: Specimen Type: BLOOD SPECIMEN [facility] Address: [address] [place], [place] [address]Performed By: #### 92793-9 #### [facility] IA [id number] [address] [place] [address] [facility] (RBC) [Mass/Vol]33.4 g/dLNormal 30.5-36.0Av HospitalComment on above:Order Comment: Specimen Type: BLOOD SPECIMEN [facility] Address: [address] [place], [place] [address]Performed By: #### 23545-8 #### [facility] IA [id number] [address] [place] [address] [place] AMERICAMCV (RBC) [Entitic vol]95.4 fLNormal 80.0-100.0Av HospitalComment on above:Order Comment: Specimen Type: BLOOD SPECIMEN [facility] Address: [address] [place], [place] [address]Performed By: #### 30241-1 #### [facility] IA [id number] [address] [place] [address] [place] AMERICAMonocytes (Bld) [#/Vol]0.47 10*3/uLNormal <0.87Av HospitalComment on above:Order Comment: Specimen Type: BLOOD SPECIMEN [facility] Address: [address] [place], [place] [address]Performed By: #### 77603-8 #### [facility] IA [id number] [address] [place] [address] [place] AMERICAMonocytes/100 WBC (Bld)8.4 %NormalAv HospitalComment on above:Order Comment: Specimen Type: BLOOD SPECIMEN [facility] Address: [address] [place], [place] [address]Performed By: #### 79770-9 #### [facility] IA [id number] [address] [place] [address] [place] AMERICANeutrophils (Bld) [#/Vol]2.43 10*3/uL Normal1.45-7.50Av HospitalComment on above:Order Comment: Specimen Type: BLOOD SPECIMEN [facility] Address: [address] [place], [place] [address]Performed By: #### 83244-5 #### [facility] IA [id number] [address] [place] [address] [place] AMERICANeutrophils/100 WBC (Bld)43.7 %NormalAv HospitalComment on above:Order Comment: Specimen Type: BLOOD SPECIMEN [facility] Address: [address] [place], [place] [address]Performed By: #### 59533-2 #### [facility] IA [id number] [address] [facility] [place] [address] [place] AMERICANucleated RBC (Bld) [#/Vol]10*3/uLNormal <0.01Avon HospitalComment on above:Order Comment: Specimen Type: BLOOD SPECIMEN [facility] Address: [address] [place], [place] [address]Performed By: #### 08773-4 #### [facility] IA [id number] [address] [place] [address] [place] AMERICANucleated RBC/100 WBC (Bld) [Ratio]0.0 /100 WBCNormalAvon HospitalComment on above:Order Comment: Specimen Type: BLOOD SPECIMEN [facility] Address: [address] [place], [place] [address]Performed By: #### 44214-5 #### [facility] IA [id number] [address] [place] [address] [place] AMERICAPlatelet mean volume (Bld) [Entitic vol] 10.5 fLNormal9.0-12.7Avon HospitalComment on above:Order Comment: Specimen Type: BLOOD SPECIMEN [facility] Address: [address] [place], [place] [address]Performed By: #### 50203-1 #### [facility] IA [id number] [address] [facility] [place] [address] [place] AMERICAPlatelets (Bld) [#/Vol]201 10*3/uLNormal 150-400Avon HospitalComment on above:Order Comment: Specimen Type: BLOOD SPECIMEN [facility] Address: [address] [place], [place] [address]Performed By: #### 04978-8 #### [facility] IA [id number] [address] [facility] [place] [address] [facility] CENTERRB (Bld) [#/Vol]3.95 10*6/uLNormal 3.90-5.20Av HospitalComment on above:Order Comment: Specimen Type: BLOOD SPECIMEN [facility] Address: [address] [place] [id number] By: #### 01084-8 #### [facility] CLIA [id number] [address] [place] [address] [facility] CENTERW (Bld) [#/Vol]5.57 10*3/uLNormal 3.70-11.00Av HospitalComment on above:Order Comment: Specimen Type: BLOOD SPECIMEN [facility] Address: [address] [facility] [place] [id number] By: #### 94123-5 #### [facility] CLIA [id number] [address]CNPNon 16-72-4939VKPYSnmoiegeu (AVPANE) CHIOMA ALONZO ([id number]) 2000 F Date Time Provider Department 11/15/23 [...] as scheduled? Event monitor preliminary reading in [facility] Rec[facility]/Telemetry [ID [id number]] ECHO completed in [employer] Of note she also has been to [...] Sedrick Rushing MD You; Wilfredo Avila OCCA; [facility] Card Nurse 9 hours ago (10:29 [...] PM Signed Faxed Cardiac Clearance form to [facility] at [phone]. Scanned into chart. CHATO Ramirez Allergies As [...] 11/15/2023 Encounter Status:Closed by MADHU CAUSEY on 11/16/23[facility] Comprehensive metabolic 2000 panelon 03-45-7401Hpsfvti [Mass/Vol]4.4 g/dL3.9 - 4.9 g/dLCantrall ClinicALP [Catalytic activity/Vol]47 U/L34 - 123 U/LCleveland ClinicALT [Catalytic activity/Vol]8 U/L7 - 38 U/LCleveland ClinicAnion gap [Moles/Vol]11 mmol/L9 - 18 mmol/LCleveland ClinicAST [Catalytic activity/Vol]18 U/L13 - 35 U/LCleveland ClinicBilirubin [Mass/Vol]0.4 mg/dL0.2 - 1.3 mg/dL Cantrall ClinicCalcium [Mass/Vol]9.6 mg/dL8.5 - 10.2 mg/dLRegional Medical Center Chloride [Moles/Vol]103 mmol/L97 - 105 mmol/LCleveland ClinicCO2 [Moles/Vol]24 mmol/L22 - 30 mmol/LCleveland ClinicCreatinine [Mass/Vol]0.75 mg/dL0.58 - 0.96 mg/dLRegional Medical CenterGFR/1.73 sq M.predicted among non-blacks MDRD (S/P/Bld) [Vol rate/Area]114 mL/min/{1.73_m2}- PINFCLancaster Municipal HospitalComment on above: Estimated Glomerular Filtration Rate [...] eGFRmay not accurately reflect actual GFR.Glucose [Mass/Vol]109 mg/hQWowa79 - 99 mg/dLRegional Medical CenterComment on above:The [place] Diabetes Association (ADA) provides guidance for cutoff [...] Standards of Medical Care in Diabetes 2016, [place] Diabetes Association. Diabetes Care. 2016.39(Suppl 1). Interpretation and review of laboratory resultsAbnormalCleveland ClinicPotassium [Moles/Vol]4.5 mmol/L3.7 - 5.1 mmol/LCleveland ClinicProtein [Mass/Vol]6.9 g/dL 6.3 - 8.0 g/dLCantrall ClinicSodium [Moles/Vol]138 mmol/L136 - 144 mmol/L Cantrall ClinicUrea nitrogen [Mass/Vol]16 mg/dL7 - 21 mg/dLAcmc Healthcare System ClinicAlbumin [Mass/Vol]4.4 g/dLNormal3.9-4.9Avon HospitalComment on above:Order Comment: Specimen Type: BLOOD SPECIMEN [facility] Address: [address] [place], [place] [address]TE[place]ATHERESA [place] [id number] By: #### 78584-7 #### [facility] CLIA [id number] [address] [place] [address] [place] AMERICAALP [Catalytic activity/Vol]47 U/LNormal 34-123Avon HospitalComment on above:Order Comment: Specimen Type: BLOOD SPECIMEN [facility] Address: [address] [place], [place] [address]Performed By: #### 94143-4 #### [facility] CLIA [id number] [address] [place] [address] [place] AMERICAALT [Catalytic activity/Vol]8 U/LNormal 7-38Avon HospitalComment on above:Order Comment: Specimen Type: BLOOD SPECIMEN [facility] Address: [address] [place], [place] [address]Performed By: #### 73630-2 #### [facility] IA [id number] [address] [place] [address] [place] AMERICAAnion gap [Moles/Vol]11 mmol/LNormal9-18 [facility] HospitalComment on above:Order Comment: Specimen Type: BLOOD SPECIMEN [facility] Address: [address] [place], [place] [address]Performed By: #### 00322-7 #### [facility] IA [id number] [address] [place] [address] [place] AMERICAAST [Catalytic activity/Vol]18 U/LNormal 13-35Avon HospitalComment on above:Order Comment: Specimen Type: BLOOD SPECIMEN [facility] Address: [address] [place], [place] [address]Performed By: #### 80425-6 #### [facility] IA [id number] [address] [place] [address] [place] AMERICABilirubin [Mass/Vol]0.4 mg/dLNormal 0.2-1.3Avon HospitalComment on above:Order Comment: Specimen Type: BLOOD SPECIMEN [facility] Address: [address] [place], [place] [address]Performed By: #### 18675-0 #### [facility] IA [id number] [address] [place] [address] [place] AMERICACalcium [Mass/Vol]9.6 mg/dLNormal8.5-10.2 [facility] HospitalComment on above:Order Comment: Specimen Type: BLOOD SPECIMEN [facility] Address: [address] [place], [place] [address]Performed By: #### 22441-5 #### [facility] IA [id number] [address] [place] [address] [place] AMERICAChloride [Moles/Vol]103 mmol/LNormal 97-105Av HospitalComment on above:Order Comment: Specimen Type: BLOOD SPECIMEN [facility] Address: [address] [place], [place] [address]Performed By: #### 11921-5 #### [facility] IA [id number] [address] [place] [address] [place] AMERICACO2 [Moles/Vol]24 mmol/HGuycgv80-29Jsan HospitalComment on above:Order Comment: Specimen Type: BLOOD SPECIMEN [facility] Address: [address] [place], [place] [address]Performed By: #### 42102-6 #### [facility] IA [id number] [address] [place] [address] [place] AMERICACreatinine [Mass/Vol]0.75 mg/dLNormal 0.58-0.96Reno HospitalComment on above:Order Comment: Specimen Type: BLOOD SPECIMEN [facility] Address: [address] [place], [place] [address]Performed By: #### 44546-2 #### [facility] IA [id number] [address] [place] [address] [place] AMERICACreatinine and Glomerular filtration rate.predicted panel (S/P/Bld)114 mL/min/1.73m???Normal>=60Av HospitalComment on above:Order Comment: Specimen Type: BLOOD SPECIMEN [facility] Address: [address] [place], [place] [address]Hrstck Comment: Estimated Glomerular Filtration Rate (eGFR) is [...] not accurately reflect actual GFR.Performed By: #### 87703-2 #### [facility] CLIA [id number] [address] [place] [address] [place] AMERICAGlucose [Mass/Vol]109 mg/lYJhtp61-26Tqdw HospitalComment on above:Order Comment: Specimen Type: BLOOD SPECIMEN [facility] Address: [address] [place], [place] [address]Cphufu Comment: The [place] Diabetes Association (ADA) provides guidance for cutoff [...] Standards of Medical Care in Diabetes 2016, [place] Diabetes Association. Diabetes Care. 2016.39(Suppl 1).Performed By: #### 30104-5 #### [facility] CLIA [id number] [address] [place] [address] [place] AMERICAPotassium [Moles/Vol]4.5 mmol/LNormal 3.7-5.1Avon HospitalComment on above:Order Comment: Specimen Type: BLOOD SPECIMEN Ordering Facility: [facility] Address: [address] [place], [place] [address]Wrdremjaf By: #### 12318-2 #### [facility] CLIA [id number] [address] [place] [address] [place] AMERICAProtein [Mass/Vol]6.9 g/dLNormal6.3-8.0 [facility]Comment on above:Order Comment: Specimen Type: BLOOD SPECIMEN Ordering Facility: [facility] Address: [address] [place], [place] [address]Performed By: #### 36619-4 #### [facility] CLIA [id number] [address] [place] [address] [place] OF AMERICASodium [Moles/Vol]138 mmol/HTyyomz822-453 [facility]Comment on above:Order Comment: Specimen Type: BLOOD SPECIMEN Ordering Facility: [facility] Address: [address] [place], [place] [address]Performed By: #### 33498-5 #### [facility] IA [id number] [address] [place] [address] [place] OF AMERICAUrea nitrogen [Mass/Vol]16 mg/dLNormal 7-21Reno HospitalComment on above:Order Comment: Specimen Type: BLOOD SPECIMEN Ordering Facility: [facility] Address: [address] [place], [place] [address]Performed By: #### 31235-9 #### [facility] IA [id number] [address] [place] [address] [place] AMERICAEosinophils/100 WBC Auto (Bld)on 69-23-8089Fahbvdfsuso/100 WBC (Bld)3.4 %[facility] Erythrocyte distribution width Auto (RBC) [Ratio]on 36-15-1627Ytnrkdybtbw distribution width (RBC) [Ratio]11.6 %11.5-15.0[facility] HISTORY PHYSICALon 19-46-8679LOPZTSG PHYSICALHNO ID: [id number] Author: MADHU CAUSEY PA-C Service: ? Author Type: Physician Restoration Officer Type: H&P Filed: 11/16/2023 07:41 Note Text: [...] SOB. Pulse today 75, regular rhythm today MRA3LP9-KQZY- 0 Ejection Fraction - Result: 63 % [...] Prior to Admission medications as of 11/15/23 6869 Medication Sig Last Dose Taking dicyclomine (BENTYL) 20 mg tablet Take 1 tablet by mouth q 8 HR. Taking Yes escitalopram oxalate (LEXAPRO) 10 mg tablet Take 5 mg by mouth once daily. Taking Yes ondansetron (ZOFRAN) 4 mg tablet Take 4 mg by mouth as needed. Taking Differently Yes No (more content not included)...NormalAvon HospitalHematocrit Auto (Bld) [Volume fraction]on 24-20-2627Euviwcerlv (Bld) [Volume fraction]37.7 %36.0-46.0 [facility]hillHemoglobin [Mass/volume] in Bloodon 11-15-2023 Hemoglobin (Bld) [Mass/Vol]12.6 g/dL11.5-15.5FTriHealth McCullough-[facility] Laboratory - Chemistry and Chemistry - challengeon 87-49-4853Chivytj [Mass/Vol] 4.4 g/dL3.9-4.9[facility]hillALP [Catalytic activity/Vol]47 U/V46-987VxdftbukySelect Medical Specialty Hospital - Cleveland-FairhillALT [Catalytic activity/Vol]8 U/L7-38 [facility]hillAST [Catalytic activity/Vol]18 U/L13-35 [facility]FairhillBilirubin [Mass/Vol]0.4 mg/dL0.2-1.3FTriHealth McCullough-Hyde Memorial HospitalCalcium [Mass/Vol]9.6 mg/dL8.5-10.2FTriHealth McCullough-Hyde Memorial HospitalChloride [Moles/Vol]103 mmol/X05-809NosaywwahSelect Medical Specialty Hospital - Cleveland-FairhillCO2 [Moles/Vol]24 mmol/S04-85CwtaoldvuSelect Medical Specialty Hospital - Cleveland-FairhillCreatinine [Mass/Vol]0.75 mg/dL0.58-0.96[facility]-FairhillGlucose [Mass/Vol] 109 mg/pR78-17UmykkitpnSelect Medical Specialty Hospital - Cleveland-FairhillComment on above:The [place] Diabetes Association (ADA) provides guidance for cutoff [...] diabetes.Reference: Standardsof Medical Care in Diabetes 2016, [place] [employer]. Diabetes Care. 2016.39(Suppl 1). Potassium [Moles/Vol]4.5 mmol/L3.7-5.1FHighland District Hospitalodium [Moles/Vol]138 mmol/I841-249LrqwvtbiqSelect Medical Specialty Hospital - Cleveland-FairhillUrea nitrogen [Mass/Vol]16 mg/dL7-21[facility]hillLaboratory - Hematology and Cell countson 99-96-9989Wiuyyapkoun (Bld) [#/Vol]0.19 10*3/uL<0.46[facility]-FairhillImmature granulocytes/100 WBC (Bld)0.2 %[facility]-FairhillLeukocytes [#/volume] corrected for nucleated erythrocytes in Blood by Automated counon 99-43-1162IUF corrected for nucl RBC Auto (Bld) [#/Vol]5.57 k/uL3.70-11.00[facility] Lymphocytes Auto (Bld) [#/Vol]on 74-39-0518Kyrwxvhpntf (Bld) [#/Vol]2.43 10*3/uL 1.00-4.00[facility]-FairhillLymphocytes/100 WBC Auto (Bld)on 43-10-1082Fclacnhikxw/100 WBC (Bld)43.6 %[facility] Medical CenterH Auto (RBC) [Entitic mass]on 53-34-3140TTF (RBC) [Entitic mass]31.9 pg26.0-34.0 [facility]-FairhillMCHC Auto (RBC) [Mass/Vol]on 87-33-9409JTGT (RBC) [Mass/Vol]33.4 g/dL30.5-36.0[facility]FairhillMCV Auto (RBC) [Entitic vol]on 98-99-1267BFY (RBC) [Entitic vol]95.4 fL80.0-100.0 [facility]FairhillMonocytes Auto (Bld) [#/Vol]on 11-15-2023 Monocytes (Bld) [#/Vol]0.47 10*3/uL<0.87[facility] Monocytes/100 WBC Auto (Bld)on 54-86-4085Xffrhigfp/100 WBC (Bld)8.4 %[facility]-FairhillNeutrophils Auto (Bld) [#/Vol]on 24-27-6087Wslfwjmhdtn (Bld) [#/Vol]2.43 10*3/uL1.45-7.50[facility] Neutrophils/100 WBC Auto (Bld)on 72-07-3157Tvjkhojgdpx/100 WBC (Bld)43.7 % [facility]hillNo Panel Informationon 53-03-5732Lztdccioe GFR (CKD-EPI)114 mL/min/1.73m???>=60[facility]-FairhillComment on above:Estimated Glomerular Filtration Rate (eGFR) is [...] # (Auto)<0.03 k/uL<0.10[facility]FairhillNucleated RBC Auto (Bld) [#/Vol]on 21-74-0231Rzfgefwez RBC (Bld) [#/Vol]10*3/uL<0.01 [facility]-FairhillNucleated erythrocytes [Presence] in Blood by Automated counton 19-15-8667Racoyyrvq RBC Auto Ql (Bld)0.0 /100{WBC}[facility]-FairhillPlatelet mean volume Auto (Bld) [Entitic vol]on 66-04-5240Oxindfwt mean volume (Bld) [Entitic vol]10.5 fL9.0-12.7FTriHealth McCullough-Hyde Memorial HospitalPlatelets Auto (Bld) [#/Vol]on 06-75-7985Ccnjhxcur (Bld) [#/Vol]201 10*3/tJ624-736EjvdjzjuySelect Medical Specialty Hospital - Cleveland-FairhillProtein [Mass/volume] in Serum or Plasmaon 49-78-2557Netxomz [Mass/Vol]6.9 g/dL6.3-8.0[facility]FairhillRBC Auto (Bld) [#/Vol]on 16-06-1158JJH (Bld) [#/Vol]3.95 10*6/uL3.90-5.20[facility] Health Centererum or plasma anion gap determinationon 73-47-0817Efffm gap [Moles/Vol]11 mmol/L9-18FTriHealth McCullough-Hyde Memorial HospitalECHOon 60-74-9297JzgkuihheldlsodiKpwnfddyxjwdtuzf Report: Transthoracic Echo [facility] Date of service: 11/07/2023 1:59:20 PM PUMPER Ordering physician: SEDRICK RUSHING Indication: Abnormal ECG Technologist: Walt Silva [facility] Interpreting physician: Roberto Rodríguez MD PATIENT: Name: [...] * * Final * * * CC [employer] [facility] Image : [id number] Acmc Healthcare SystemCNPNon 08-34-6996CYUYIwakuhovn (CARDAV) CHIOMA ALONZO Jovana ([id number]) 2000 F Date Time Provider Department 11/05/23 [...] Fully Assessed Reason for Visit: Patient Question [3867] Cmt: PVCs and Frequent ED visits. Prescriptions [...] 12/08/2022 Encounter Status:Closed by SEDRICK RUSHING on 11/05/23OhioHealthChristine 54-64-3183URZXFacgkgrgc (CARDAV) CHIOMA ALONZO ([id number]) 2000 F Date Time Provider Department 10/30/23 SEDRICK RUSHING During your visit today, we recorded the following information about you: Juanis Cabello, RN 10/30/2023 11:14 AM Signed The pt is calling. Please review the my chart message from today for an EKG attachment she sent from her ED visit last night. She went to the [facility]. Are you able to revue her [...] ongoing symptoms Staying hydrated Concerned Call CELL [phone] Leave Detailed messages Chichi Monroy RN 11/01/2023 [...] 12/08/2022 Encounter Status:Closed by CHICHI MONROY on 11/01/23NoOhio State East HospitalImtiaz 55-69-2140EZSNUgkeyqyoj (FAINA) CHIOMA ALONZO ([id number]) 2000 F Date Time Provider Department 10/23/23 SEDRICK RUSHING During your visit today, we recorded the following information about you: Wilfredo Avila OCCA 10/23/2023 1:53 PM Signed Received form requesting cardiac evaluation for surgical clearance from [facility] General Surgery with Dr. Seema Davis. Surgery Date: 11-21-2023 Fax to [facility] Surgery: [phone] Rushing to review. CHATO Ramirez Cynthia, OCCA 12/07/2023 4:[address] Rushing filled out Cardiac Clearance Form. Faxed to [facility] Surgery at [phone]. Scanned into chart. CHATO Ramirez Allergies As [...] 12/08/2022 Encounter Status:Closed by WILFREDO AVILA on 10/23/23OhioHealthCNMERRYTelephone ([facility]) CINDYCHIOMA Newberry Jovana ([id number]) 2000 F Date Time Provider Department 10/23/23 SEEMA DAVIS [facility] During your visit today, we recorded the following information about you: Kym Gray RN 10/23/2023 1:[address] Sedrick Rushing's office for cardiac clearance at [phone]. Abnormal heart sounds with gallbladder consult on [...] Fully Assessed Reason for Visit: Cardiac Clearance [3749] Prescriptions as of 10/23/2023 - dicyclomine (BENTYL) [...] 12/08/2022 Encounter Status:Closed by KYM GRAY on 10/23/23[facility] 74-46-3760QZADDptbrm Visit (CARINF) CHIOMA ALONZO Jovana ([id number]) 2000 F Date Time Provider Department 10/22/23 3:00 PM SEDRICK RUSHING CARINF During your visit today, we recorded the following information about you: Pulse Blood pressure Weight Height 40/minute 102/62 52.6 kg 1.626 m Sedrick Rushing MD 10/22/2023 3:17 PM [facility] V[facility] Ramey Iram Pathak Department of Cardiovascular Medicine SECTION OF REGIONAL CARDIOLOGY OUTPATIENT VISIT DATE October 21, 2023 OUTPATIENT VISIT TYPE NEW CONSULTATION PRIMARY CARE PHYSICIAN: Analia Holliday [address] [facility] [place] [address] CHIEF COMPLAINT: Palpitations HISTORY OF PRESENT ILLNESS: [...] Shortness of Breath, Unknown, Vomiting CURRENT MEDICATIONS: sduqsm-qtfhjudl-oudgwai (CREON) 24,000-76,000 -120,000 unit delayed release capsule [...] on File Prior to Visit Medication Sig qqwvlz-usetecqe-wwvdyja (CREON) 24,000-76,000 -120,000 unit delayed release capsule [...] Sedrick Rushing MD Cardiovascular Medicine Staff [facility] [address] [facility] [place] [address] Azael Larson LPN 10/22/2023 3:33 PM Signed EVENT MONITOR DISPOSABLE PATCH INSTRUCTIONS Patient Name: Chioma Alonzo Clinic Number: [id number] Skin prepped and cleansed with alcohol Patch secured to prepped area Monitor Activated Serial #: [id number] Patient Instructed: Prescribed order timeframe Bathing guidelines Usage of event button and diary documentation Return of monitor at the end of prescribed order Call with problems [phone] or [phone]. [phone] (more content not included)...NormalAcmc Healthcare SystemCNOVon 10-19-2023 CNOVOffice Visit (GEMT) CINDYCHIOMA Newberry Jovana ([id number]) 2000 F Date Time Provider Department 10/19/23 [...] Take 4 mg by mouth as needed. 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 Lives with her . [...] the date of the service which included dvgm-rh-jjvw patient care, completing clinical documentation, obtaining and/or [...] within normal limits Referring Provider: SEEMA DAVIS [[id number]] Allergies As of Date: 10/19/2023 Noted Allergy Reaction METRONIDAZOLE 09/07/2020 1 - Mental Status Change 6 - Diarrhea 8 - GI Upset 4 - Hives 14 - Other: See Comments 2 - Rash 12 - Shortness of Breath 16 - Unknown 11 - Vomiting Date Reviewed: 10/19/2023 (more content not included)...[facility] COMPLETEon 19-84-2684SYZ COMPLETEVentricular Rate : 67 BPM Atrial Rate : 67 BPM P-R Interval : 160 ms QRS Duration : 94 ms Q-T Interval : 402 ms QTC Calculation(Bazett) : 424 ms Calculated P Mcintosh : 76 degrees Calculated R Mcintosh : 37 degrees Calculated T Mcintosh : 57 degrees NORMAL SINUS RHYTHM WITH SINUS ARRHYTHMIA POSSIBLE LEFT ATRIAL ENLARGEMENT RSR' PATTERN IN V1 SUGGESTS INCOMPLETE RIGHT BUNDLE BRANCH BLOCK BORDERLINE ECG NO PREVIOUS ECGS AVAILABLE Confirmed by JENNIFER SURESH MD ([id number]) on 10/22/2023 1:00:28 PM NAME : CHIOMA ALONZO PID : [id number] : 2000 Gender : Female Race : ORD : [id number] Procedure Date : Oct 19 2023 14:37:15 Edit Date : Oct 22 2023 13:00:33 Diagnosis: NORMAL SINUS RHYTHM WITH SINUS ARRHYTHMIA POSSIBLE LEFT ATRIAL ENLARGEMENT RSR' PATTERN IN V1 SUGGESTS INCOMPLETE RIGHT BUNDLE BRANCH BLOCK BORDERLINE ECG NO PREVIOUS ECGS AVAILABLE Confirmed by JENNIFER SURESH MD ([id number]) on 10/22/2023 1:00:28 PM Test Reason : SVT Location : [facility] : [facility] Overread By : JENNIFER SURESH MD Edited By : JENNIFER SURESH MD Referred By : SEEMA DAVIS Acquired by : [id number],[facility] 34-55-7096UMON Telephone (LENA) CHIOMA ALONZO N ([id number]) 2000 F Date Time Provider Department 09/11/23 [...] 09/11/2023 4:25 PM Signed Please refer to [facility] dated 09/11/2023. Gisela Ponce RN Allergies [...] Update [1234] Prescriptions as of 09/11/2023 - fdiyaz-onwdihur-xamcyof (CREON) 24,000-76,000 -120,000 unit delayed release capsule [...] 12/08/2022 Encounter Status:Closed by GISELA PONCE on 09/11/23[facility] POSTPROC EVALon 62-25-0954PERW POSTPROC EVALHNO ID: [id number] Author: TERRY PIMENTEL MD Service: Anesthesiology Author Type: Anesthesiologist Type: Anesthesia Postprocedure Evaluation Filed: 09/06/2023 13:55 Note Text: POST ANESTHESIA EVALUATION NOTE : 2000 Procedure Summary Date: 09/06/23 Room / Location: [facility] Endoscopy - ENDO Anesthesia Start: 1244 Anesthesia Stop: 1327 Procedure: EGD - THERAPEUTIC, EUS, OR TUBE INTERVENTIONS Diagnosis: Chronic recurrent pancreatitis (HCC) Scheduled Providers: Isabelle Menon MD; Terry Pimentel MD; Elif Hess APRN.BACK HANGER Responsible Provider: Terry Pimentel MD Anesthesia Type: [...] September 06, 2023 TIME: 1:55 PM CSN: [id number] HospitalANES PRE-OPon 33-10-7150YBLZ PRE-OPHNO ID: [id number] Author: TERRY PIMENTEL MD Service: Anesthesiology Author Type: Anesthesiologist Type: Anesthesia Preprocedure Evaluation Filed: 09/06/2023 10:56 Note Text: ANESTHESIOLOGY DAY OF SURGERY NOTE : 2000 Procedure Information Date/Time: 09/06/23 1130 Scheduled providers: Isaeblle Menon MD; Terry Pimentel MD; Elif Hess APRN.BACK HANGER Procedure: EGD - THERAPEUTIC, EUS, OR TUBE INTERVENTIONS Location: [facility] Endoscopy - ENDO Estimated body mass [...] 10 mg by mouth once daily. - pieuzp-xuqdhbmb-ycdujvk (CREON) 24,000-76,000 -120,000 unit delayed release capsule [...] September 06, 2023 TIME: 10:54 AM CSN: [id number] Pavilion Behavioral Health Hospital 29-34-4022SORF Telephone (FVPRAD) CHIOMA ALONZO ([id number]) 2000 F Date Time Provider Department 09/06/23 [...] Fully Assessed Prescriptions as of 09/06/2023 - kxvgxt-izazuaig-uwjrkod (CREON) 24,000-76,000 -120,000 unit delayed release capsule [...] 12/08/2022 Encounter Status:Closed by ISABELLE MENON on 09/06/23[facility] Study observation Narrativeon 92-03-3214Hpuognvkd ClinicHISTORY PHYSICALon 98-97-5942NTIKSNK PHYSICALHNO ID: [id number] Author: ISAEBLLE MENON MD Service: Gastroenterology Author Type: Physician [...] mouth once daily. 09/05/2023 at 1000 Yes dzuvgp-mljgxzcu-grdbxrc (CREON) 24,000-76,000 -120,000 unit delayed release capsule [...] Alonzo DATE: September 06, 2023 TIME: 12:20 [facility] 99-65-6722USKYQCI PROGHNO ID: [id number] Author: RICKIE GU RN Service: Nursing Author [...] Left Endo in satisfactory condition Rickie Gu RNChoate Memorial Hospital ID: [id number] Author: RICKIE GU RN Service: Nursing Author [...] Electronically Signed By: Rickie GuBeth Israel [facility] EUSon 29-51-5400QbavsBristol County Tuberculosis Hospital Gastrointestinal Endoscopy Patient Name: Chioma Alonzo Procedure Date: 09/06/2023 12:16 PM Date of : 2000 Admit Type: Outpatient Age: 22 Room: [place] [address] Gender: Female Note Status: Finalized Attending MD: Isabelle Menon MD, [id number] Procedure: Upper EUS Indications: Abnormal abdominal/pelvic CT [...] for cholecystectomy. 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 All rights reserved. The codes documented in this report are preliminary and upon copy center specialist review may be revised to meet current compliance requirements. Attending Participation: I personally performed the entire procedure. Scope In: 12:53:03 PM Scope Out: 1:22:36 PM MD Isabelle Cedeno MD 09/06/2023 3:29:47 PM This report has been signed electronically by Isabelle Menon MD Number of Addenda: 0 Note Initiated On: 09/06/2023 12:16 PM Estimated Blood Loss: Estimated blood loss: none.NormalWhittier Rehabilitation HospitalAlanine aminotransferase [Enzymatic activity/volume] in Serum or PlasmaOrdered By: Analia Holliday on 10-72-2574RVX [Catalytic activity/Vol]10 U/L7-52[facility]hillAlbumin [Mass/volume] in Serum or Plasma by Bromocresol green (BCG) dye binding methoOrdered By: Analia Holliday on 82-94-8429Ewvneux BCG dye [Mass/Vol]4.6 g/dL3.5-5.7FTriHealth McCullough-Hyde Memorial HospitalAlkaline phosphatase [Enzymatic activity/volume] in Serum or PlasmaOrdered By: Analia Holliday on 82-64-3671XHH [Catalytic activity/Vol]44 U/S27-975KnucvhvbmSelect Medical Specialty Hospital - Cleveland-FairhillAspartate aminotransferase [Enzymatic activity/volume] in Serum or PlasmaOrdered By: Analia Holliday on 89-03-2266NTO [Catalytic activity/Vol]16 U/L 13-39[facility]-FairhillBasophils Auto (Bld) [#/Vol]Ordered By: Analia Holliday on 57-62-9851Ilsqgtfee (Bld) [#/Vol]0.0 10*3/uL0.0-0.2FTriHealth McCullough-Hyde Memorial HospitalBasophils/100 WBC Auto (Bld)Ordered By: Analia Holliday on 23-22-5944Eclcwdccw/100 WBC (Bld)0.8 %.[facility] Bilirubin.total [Mass/volume] in Serum or PlasmaOrdered By: Analia Holliday on 41-42-3718Rxeydezzp [Mass/Vol]0.6 mg/dL0.3-1.0[facility] Calcium [Mass/volume] in Serum or PlasmaOrdered By: Analia Holliday on 05-30-2023 Calcium [Mass/Vol]9.5 mg/dL8.6-10.3FTriHealth McCullough-Hyde Memorial HospitalCarbon dioxide, total [Moles/volume] in Serum or PlasmaOrdered By: Analia Holliday on 21-73-4770BB5 [Moles/Vol]27.5 mmol/L21.0-31.0[facility] Chloride [Moles/volume] in Serum or PlasmaOrdered By: Analia Holliday on 48-09-5459Splqcwaz [Moles/Vol]106 mmol/Q79-912EstcnkpdiSelect Medical Specialty Hospital - Cleveland-[facility]hill Cholesterol [Mass/volume] in Serum or PlasmaOrdered By: Analia Holliday on 88-35-2290Aujpmuvnqeg [Mass/Vol]169 mg/mA278-259MexvbpmgdSelect Medical Specialty Hospital - Cleveland-FairhillComment on above:Chol less than 200 mg/dl low riskChol 201-239 mg/dl borderline riskChol 240 mg/dl and greater high riskCholesterol in LDL Calc [Mass/Vol]Ordered By: Analia Holliday on 81-48-1921Trwgtirkppz in LDL [Mass/Vol] 100 mg/dL0-100[facility] Cleveland-FairhillComment on above:LDL ATP III CLASSIFICATIONLDL less than 100 mg/dL OptimalLDL 100-129 mg/dL Near or above stwvmyiARC467-015 mg/dL Borderline highLDL 160-189 mg/dL HighLDL greater than 189 mg/dL Very highCholesterol in VLDL Calc [Mass/Vol]Ordered By: Analia Holliday on 31-45-0212Vhbllrtnjos in VLDL [Mass/Vol]8 mg/dLSelect Medical Specialty Hospital - Cleveland-FairhillCreatinine [Mass/volume] in Serum or PlasmaOrdered By: Analia Holliday on 71-17-5904Acdjihherp [Mass/Vol]0.66 mg/dL0.60-1.20[facility] Cleveland-FairhillEosinophils Auto (Bld) [#/Vol]Ordered By: Analia Holliday on 05-30-2023 Eosinophils (Bld) [#/Vol]0.2 10*3/uL0.0-0.45[facility] Eosinophils/100 WBC Auto (Bld)Ordered By: Analia Holliday on 05-30-2023 Eosinophils/100 WBC (Bld)3.8 %.[facility] Cleveland-FairhillErythrocyte distribution width Auto (RBC) [Ratio]Ordered By: Analia Holliday on 05-30-2023 Erythrocyte distribution width (RBC) [Ratio]12.3 %11.9-15.3FTriHealth McCullough-Hyde Memorial HospitalFerritin [Mass/volume] in Serum or PlasmaOrdered By: Analia Holliday on 46-27-7650Dqoryvqz [Mass/Vol]38.7 ng/mL11.0-306.8[facility]-FairhillFolate [Mass/volume] in Serum or PlasmaOrdered By: Analia Holliday on 32-11-7358Bmlpai [Mass/Vol]23.0 ng/mL>5.9[facility] Comment on above:Folate reference range: >5.9 ng/mlThe WHO technical consultation on folate and vitamin s14cyhzmbdzdgtv has determined that folate concentrations lessthan 4 ng/ml are considered deficient.Globulin Calc (S) [Mass/Vol]Ordered By: Analia Holliday on 46-10-7779Mpoopuyf (S) [Mass/Vol]2.5 g/dLSelect Medical Specialty Hospital - Cleveland-FairhillGlucose [Mass/volume] in Serum or Plasma Ordered By: Analia Holliday on 33-47-2407Nvfmccz [Mass/Vol]89 mg/eI31-304 [facility] Cleveland-FairhillHematocrit Auto (Bld) [Volume fraction]Ordered By: Analia Holliday on 83-16-3489Gznglvwjee (Bld) [Volume fraction]39.8 % 34.0-46.4FTriHealth McCullough-Hyde Memorial HospitalHemoglobin [Mass/volume] in Blood Ordered By: Analia Holliday on 76-84-9094Sbgsifqyet (Bld) [Mass/Vol]13.6 g/dL 11.8-15.4FTriHealth McCullough-Hyde Memorial HospitalIron [Mass/volume] in Serum or Plasma Ordered By: Analia Holliday on 05-34-5504Zizr [Mass/Vol]116 ug/zH18-171IgwiduujvSelect Medical Specialty Hospital - Cleveland-FairhillIron binding capacity [Mass/volume] in Serum or Plasma Ordered By: Analia Holliday on 82-22-7846Vgan binding capacity [Mass/Vol]349 ug/lC959-049KvswhcxnbSelect Medical Specialty Hospital - Cleveland-FairhillIron saturation [Mass Fraction] in Serum or PlasmaOrdered By: Analia Holliday on 37-68-9744Yrkx saturation [Mass fraction]33.2 %20-50[facility] Cleveland-FairhillLeukocytes [#/volume] corrected for nucleated erythrocytes in Blood by Automated counOrdered By: Analia Holliday on 51-90-4362QCY corrected for nucl RBC Auto (Bld) [#/Vol]5.0 10*3/uL3.8-11.6FTriHealth McCullough-Hyde Memorial HospitalLymphocytes Auto (Bld) [#/Vol] Ordered By: Analia Holliday on 04-40-7041Amxlcmyqshq (Bld) [#/Vol]2.0 10*3/uL 1.00-4.8Firelands Regional Medical CenterLymphocytes/100 WBC Auto (Bld)Ordered By: Analia Holliday on 40-23-8050Gknmddcxlvd/100 WBC (Bld)39.3 %.[facility] Medical CenterH Auto (RBC) [Entitic mass]Ordered By: Analia Holliday on 12-20-3890XSM (RBC) [Entitic mass]31.6 pg24.7-34.3FTriHealth McCullough-Hyde Memorial HospitalMCHC Auto (RBC) [Mass/Vol]Ordered By: Analia Holliday on 96-11-2565RVOO (RBC) [Mass/Vol]34.1 g/dL32.0-35.0[facility] [facility]hillMCV Auto (RBC) [Entitic vol]Ordered By: Analia Holliday on 64-18-9582MXW (RBC) [Entitic vol]92.6 fK79-060ZaasmheeiSelect Medical Specialty Hospital - [facility]-FairhillMonocytes Auto (Bld) [#/Vol] Ordered By: Analia Holliday on 31-21-2590Ydpzleiyo (Bld) [#/Vol]0.5 10*3/uL 0.0-0.8[facility]hillMonocytes/100 WBC Auto (Bld)Ordered By: Analia Holliday on 62-86-5820Iphccauuf/100 WBC (Bld)9.5 %.[facility]hillNeutrophils Auto (Bld) [#/Vol]Ordered By: Analia Holliday on 07-59-5818Hbrqjczjsck (Bld) [#/Vol]2.3 10*3/uL1.8-7.7FTriHealth McCullough-Hyde Memorial HospitalNeutrophils/100 WBC Auto (Bld)Ordered By: Analia Holliday on 05-30-2023 Neutrophils/100 WBC (Bld)46.6 %.[facility] [place]No Panel InformationOrdered By: Analia Holliday on 75-46-5816Iiggmpoza GFR (CKD-EPI)> 60.0 mL/MinSelect Medical Specialty Hospital - [place]-FairhillPharmacy Creatinine Clearance (ChemN/A [facility]-FairhillNucleated erythrocytes [Presence] in Blood by Automated countOrdered By: Analia Holliday on 99-23-3559Ylbiyfnyj RBC Auto Ql (Bld)0.1 /100{WBC}0-0.5FTriHealth McCullough-Hyde Memorial HospitalPlatelet mean volume Auto (Bld) [Entitic vol]Ordered By: Analia Holliday on 58-84-3639Jozevaax mean volume (Bld) [Entitic vol]9.7 fL6.3-10.7FTriHealth [facility]ull[facility] Hospital Platelets Auto (Bld) [#/Vol]Ordered By: Analia Holliday on 19-39-3120Ysoywzfwa (Bld) [#/Vol]198 10*3/yV179-147ZbufzskpcSelect Medical Specialty Hospital - [place]hillPotassium [Moles/volume] in Serum or PlasmaOrdered By: Analia Holliday on 05-30-2023 Potassium [Moles/Vol]4.2 mmol/L3.5-5.1FTriHealth McCullough-Hyde Memorial HospitalProtein [Mass/volume] in Serum or PlasmaOrdered By: Analia Holliday on 07-70-2053Ytnbwfm [Mass/Vol]7.1 g/dL6.4-8.9[facility]hillRBC Auto (Bld) [#/Vol] Ordered By: Analia Holliday on 24-67-4702DVY (Bld) [#/Vol]4.30 10*6/uL3.60-5.00 [facility] Centererum or plasma albumin/globulin mass ratio Ordered By: Analia Holliday on 31-64-0993Mkdjmaa/Globulin [Mass ratio]1.8 {ratio} [facility] Centererum or plasma anion gap determinationOrdered By: Analia Holliday on 21-48-5909Zeswt gap [Moles/Vol]8.7 mmol/L6.0-15.0[facility] Centererum or plasma high density lipoprotein (HDL) cholesterol measurementOrdered By: Analia Holliday on 10-23-2874Hknlruwintg in HDL [Mass/Vol]61 mg/nV10-73QfkxbuawpSelect Medical Specialty Hospital - [place]-FairhillComment on above:HDL CHOL ATP-III CLASSIFICATION Cardiovascular RiskHDL > or equal to 60 mg/dL LOWHDL < 40 mg/dL HIGHSerum or plasma total cholesterol/high density lipoprotein (HDL) cholesterol mass ratOrdered By: Analia Holliday on 05-30-2023 Cholesterol.total/Cholesterol in HDL [Mass ratio]2.8 {ratio}<5.0[facility] Centerodium [Moles/volume] in Serum or PlasmaOrdered By: Analia Holliday on 26-86-1985Tbapaa [Moles/Vol]138 mmol/G546-498VjhexnrsjSelect Medical Specialty Hospital - [place]-FairhillThyrotropin [Units/volume] in Serum or PlasmaOrdered By: Analia Holliday on 37-10-7521VPE Qn0.95 m[IU]/L0.45-5.33[facility] [place]hillTransferrin [Mass/volume] in Serum or PlasmaOrdered By: Analia Holliday on 36-22-4660Zdlvnovemof [Mass/Vol]249 mg/lF285-341SfhzxseffSelect Medical Specialty Hospital - [place]-FairhillTriglyceride [Mass/volume] in Serum or PlasmaOrdered By: Analia Holliday on 05-99-3209Rlyriryozkzt [Mass/Vol]42 mg/dL0-149[facility] [place]-FairhillComment on above:TRIG ATP III CLASSIFICATIONTRIG less than 150 mg/dL NormalTRIG 150-199 mg/dL Borderline highTRIG 200-500 mg/dL High TRIG greater than 500 mg/dL Very highStandard traceable to the Center for Disease Co nrtrol and Prevention (CDC) test method.Urea nitrogen [Mass/volume] in Serum or PlasmaOrdered By: Analia Holliday on 90-68-7662Tdls nitrogen [Mass/Vol]12 mg/dL 7-25[facility] [place]-FairhillVitamin B12 ser/plasOrdered By: Analia Holliday on 31-68-4484Yrxawdmuk (Vitamin B12) [Mass/Vol]630 pg/cU433-268FxbavsfwrSelect Medical Specialty Hospital - Cleveland-FairhillVitamin D+Metabolites [Mass/volume] in Serum or Plasma Ordered By: Analia Holliday on 13-91-3649Gytwxdh D+Metabolites [Mass/Vol]27.7 ng/dC79-261PgszdtydvSelect Medical Specialty Hospital - [place]-FairhillComment on above:VITAMIN D STATUS 25(OH)VITAMIN D RANGE (ng/mL) Deficient <20 Insufficient 20 to <80Tyvgtiqxds01 to 100Reference: Chichi MF,Manpreet NC, Doe MIKE, et al. Evaluation,treatment, and prevention of vitamin D deficiency; an Endocrine Society clinical practice guideline. JCEM. 2010; 96(7):1911-30.WBC Auto (Bld) [#/Vol]Ordered By: Analia Holliday on 66-71-9673MUZ (Bld) [#/Vol]5.0 10*3/uL3.8-11.6FMercy Health St. [facility] HEALTHon 39-87-5961DVCUAN HEALTHHNO ID: [id number] Author: Yessi Adkins MRI Tech Service: Radiology Author Type: Archaeologist Type: Allied Health Filed: 04/13/2023 3:14 PM [...] Alonzo DATE: April 13, 2023 TIME: 3:13 PMNValley Springs Behavioral Health HospitalMR Abdomen WO and W contrast Eddie 04-13-2023 IMPRESSION: No MR findings of acute or chronic pancreatitis. No pancreatic divisum. Incident Manager: PSCB Transcribe Date/Time: Apr 13 2023 3:30P Dictated by : ERIC VILLAR MD This examination was interpreted and the report reviewed and electronically signed by: ERIC VILLAR MD on Apr 13 2023 3:50PM [facility] RADIOLOGY* * *Final Report* * * DATE OF EXAM: Apr 13 2023 3:23PM [facility] 0689 - MRI ABDOMEN WO/W IVCON [...] ascites. Osseous structures: No aggressive osseous lesions. DELANO RADIOLOGYProvider, [facility] R[facility]y - 04/13/2023 * * *Final Report* * * DATE OF EXAM: Apr 13 2023 3:23PM [facility] 0689 - MRI ABDOMEN WO/W IVCON [...] acute or chronic pancreatitis. No pancreatic divisum. Incident Manager: PSCB Transcribe Date/Time: Apr 13 2023 3:30P Dictated by : ERIC VILLAR MD This examination was interpreted and the report reviewed and electronically signed by: ERIC VILLAR MD on Apr 13 2023 3:50PM EST [facility]Rad[facility] (narrative)[facility] Abdomen WO and W contrast IVOrdered By: Ccf Provider on 15-25-4355Mlhxhirgv ClinicMRI ABDOMEN WO/W IVCONon 53-56-4395DVQ ABDOMEN WO/W IVCON* * *Final Report* * * DATE OF EXAM: Apr 13 2023 3:23PM [facility] 0689 - MRI ABDOMEN WO/W IVCON [...] acute or chronic pancreatitis. No pancreatic divisum. Incident Manager: PSCB Transcribe Date/Time: Apr 13 2023 3:30P Dictated by : ERIC VILLAR MD This examination was interpreted and the report reviewed and electronically signed by: ERIC VILLAR MD on Apr 13 2023 3:50PM EST [id number] State Hospital [id number] (RGFV) CHIOMA ALONZO ([id number]) 2000 F Date Time Provider Department 04/12/23 [...] mouth three times daily with meals. - ifltxp-yokhrrzv-aqlbghq (ZENPEP) 40,000-126,000- 168,000 unit delayed release capsule [...] 12/08/2022 Encounter Status:Closed by MARIE SIMPSON on 04/12/23[facility] HEPATOBILIARY SCAN W EFon [id number] HEPATOBILIARY SCAN W EF HEPATOBILIARY SCAN WITH [...] authenticated by: DARA CEDILLO Date: 2022-12-01 13:53Normal [facility] AND PARASITE EXAMINATIONon 52-26-8978Bvo + Parasite ExamFinal reportNoPike Community HospitalComment on above:Result Comment: These results were obtained using wet preparation(s) and trichrome stained smear. This test does not include testing for Cryptosporidium parvum, Cyclospora, or Microsporidia.Performed By: #### OVAPE #### [facility] [address] [place] [address] Dr. Timi Velasquez 1CommentNoPike Community HospitalComment on above:Result Comment: No ova, cysts, or parasites seen. . One negative specimen does not rule out the possibility of a parasitic infection.Performed By: #### OVAPE #### [facility] [address] [place] [address] Dr. Timi PraterAMYLASEon 95-54-9558Rnpofex [Catalytic activity/Vol]39 U/LNormal 25-115[facility] – JacksonComment on above:Performed By: #### OVAPE #### [facility] [address] [place] [address] Dr. Timi Willett AUTO DIFFon [id number] #0.1 103/ulNormal0.0-0.1[facility] – JacksonComment on above:Performed By: #### CALPOO #### [facility] [address] [place] [address] Dr. Timi PraterBasophils/100 WBC (Bld)1.1 %Normal0.2-2.0[facility] Comment on above:Performed By: #### CALPOO #### [facility] [address] [place] [address] Dr. Timi Mejia #0.2 103/ulNormal0.0-0.7The [facility] HospitalComment on above: Performed By: #### CALPOO #### [facility] [address] [place] [address] Dr. Timi Romeroosinophils/100 WBC (Bld)3.5 %Normal0.9-7.0[facility] Comment on above:Performed By: #### CALPOO #### [facility] [address] [place], [place] [address] Dr. Timi Romerorythrocyte distribution width (RBC) [Ratio]11.5 %Xmkibm88.0-15.0 The [facility] HospitalComment on above:Performed By: #### CALPOO #### [facility] [address] [place] [address] Dr. Timi PraterHematocrit (Bld) [Volume fraction]39.8 %Leqwhm58.0-48.0The [facility] HospitalComment on above:Performed By: #### CALPOO #### [facility] [address] [place] [address] Dr. Timi PraterHemoglobin (Bld) [Mass/Vol]13.7 g/gRRxijiv01.0-16.0The [facility] HospitalComment on above:Performed By: #### CALPOO #### [facility] [address] [place] [address] Dr. Timi Delong #0.01 10e3/ulNormal0.00-0.03The [facility] HospitalComment on above:Performed By: #### CALPOO #### [facility] [address] [place] [address] Dr. Timi Delong %0.2 %Normal0.0-0.5The [facility] HospitalComment on above: Performed By: #### CALPOO #### [facility] [address] [place] [address] Dr. Timi MalcolmH #2.4 103/ulNormal1.2-3.8The [facility] HospitalComment on above:Performed By: #### CALPOO #### [facility] [address] [place] [address] Dr. Timi Obrienmphocytes/100 WBC (Bld)53.1 %Csnewk40.5-60.0The [facility] HospitalComment on above:Performed By: #### CALPOO #### [facility] [address] [place] [address] Dr. Timi PraterMANUAL DIFF REQNONormalThe [facility] HospitalComment on above: Performed By: #### CALPOO #### [facility] [address] [address] [address] Timi Escamilla (RBC) [Entitic mass]31.6 pzFbffuq17.7-34.0The [facility] HospitalComment on above:Performed By: #### CALPOO #### [facility] [address] [place] [address] Dr. Timi Escamilla (RBC) [Mass/Vol]34.4 g/ePVeojyn20.9-35.2The Branch HospitalComment on above:Performed By: #### CALPOO #### [facility] [address] [place] [address] Dr. Timi Escamilla (RBC) [Entitic vol]91.7 jJGsxutm56.0-99.0The [facility] HospitalComment on above:Performed By: #### CALPOO #### [facility] [address] [place] [address] Dr. Timi Ortiz #0.4 103/ulNormal0.3-0.8The [facility] HospitalComment on above:Performed By: #### CALPOO #### [facility] [address] [place] [address] Dr. Timi Turciosocytes/100 WBC (Bld)8.1 %Normal1.7-12.0The [facility] Comment on above:Performed By: #### CALPOO #### [facility] [address] [place] [address] Dr. Timi Mott #1.6 103/ulNormal1.4-6.5The [facility] HospitalComment on above:Performed By: #### CALPOO #### [facility] [address] [place] [address] Dr. Timi Guzmanutrophils/100 WBC (Bld)34.0 %Critically low43.0-75.0The [facility] HospitalComment on above:Performed By: #### CALPOO #### [facility] [address] [place] [address] Dr. Timi Zamanlet mean volume (Bld) [Entitic vol]10.7 fLNormal9.5-13.5The [facility] HospitalComment on above:Performed By: #### CALPOO #### [facility] [address] [place] [address] Dr. Timi PraterPLT192 103/cdCqakfv615-500Axi [facility] HospitalComment on above: Performed By: #### CALPOO #### [facility] [address] [place] [address] Dr. Timi PraterRBC4.34 106/ulNormal4.20-5.40The [facility] HospitalComment on above:Performed By: #### CALPOO #### [facility] [address] [place] [address] Dr. Timi PraterWBC4.6 103/ulNormal4.0-11.0The [facility] HospitalComment on above: Performed By: #### CALPOO #### [facility] [address] [place] [address] Dr. Timi Blanchard PANEL (PCR)on 44-41-0589Ckfbuzgket F 40/41Not detectedNormal NOT DETECTEDThe [facility] HospitalComment on above:Performed By: #### CDIFPOC #### [facility] [address] [place] [address] Dr. Timi PraterAstrovirusNot detectedNormalNOT DETECTEDThe [facility] Comment on above:Performed By: #### CDIFPOC #### [facility] [address] [place] [address] Dr. Timi Gupta. Diff toxin A/BNot detectedNormalNOT DETECTEDThe [facility] HospitalComment on above:Performed By: #### CDIFPOC #### [facility] [address] [place] [address] Dr. Timi ChupylobacterNot detectedNormalNOT DETECTEDThe [facility] Comment on above:Performed By: #### CDIFPOC #### [facility] [address] [place] [address] Dr. Timi PraterCryptosporidiumNot detectedNormalNOT DETECTEDThe [facility] HospitalComment on above:Performed By: #### CDIFPOC #### [facility] [address] [address] [address] Timi Christensen. CayetanensisNot detectedNormalNOT DETECTEDThe [facility] HospitalComment on above:Performed By: #### CDIFPOC #### [facility] [address] [address] [address] Timi Romero. Coli I047Sxk ApplicableNormalNot ApplicableThe [facility] HospitalComment on above:Performed By: #### CDIFPOC #### [facility] [address] [address] [address] Timi Romero. histolyticaNot detectedNormalNOT DETECTEDThe [facility] Comment on above:Performed By: #### CDIFPOC #### [facility] [address] [address] [address] Timi RomeroAECNot detectedNormalNOT DETECTEDThe [facility] HospitalComment on above:Performed By: #### CDIFPOC #### [facility] [address] [address] [address] Timi RomeroIECNot detectedNormalNOT DETECTEDThe [facility] HospitalCommckenzie memorial hospital on above:Performed By: #### CDIFPOC #### [facility] [address] [address] [address] Timi RomeroPECNot detectedNormalNOT DETECTEDThe [facility] HospitalComment on above:Performed By: #### CDIFPOC #### [facility] [address] [address] [address] Timi RomeroTECNot detectedNormalNOT DETECTEDThe [facility] HospitalComment on above:Performed By: #### CDIFPOC #### [facility] [address] [address] [address] Timi Perez. LambliaNot detectedNormalNOT DETECTEDThe [facility] Comment on above:Performed By: #### CDIFPOC #### [facility] [address] [address] [address] Timi Burroughs CONTROLSPASSEDNormalThe [facility] HospitalComment on above:Performed By: #### CDIFPOC #### [facility] [address] [address] [address] Timi Jay ANITA HEADERGI [facility] Comment on above:Performed By: #### CDIFPOC #### [facility] [address] [address] [address] Timi Moon ECOLIGI PANEL DIARRHEAGENIC E.COLI / SHIGELLAMercy Health Fairfield HospitalComment on above:Performed By: #### CDIFPOC #### [facility] [address] [place] [address] Dr. Timi Moon INFOSEE [facility] Rita's Medical CenterComment on above: Result Comment: EAEC- Enteroaggregative E. Coli EPEC- Enteropathogenic E. Coli ETEC- Enterotoxigenic E. Coli lt/st STEC- Shigella-like toxin-producing E. Coli stx1/stx2 EIEC- Shigella/Enteroinvasive E. ColiPerformed By: #### CDIFPOC #### [facility] [address] [place] [address] Dr. Timi Moon PARASITESGI PANEL PARASITESMercy Health [facility]field Hospital Comment on above:Performed By: #### CDIFPOC #### [facility] [address] [place] [address] Dr. Timi Moon VIRUSGI PANEL VIRUSESMercy Health Fairfield HospitalComment on above:Performed By: #### CDIFPOC #### [facility] [address] [place] [address] Dr. Timi Heartrovirus GI/GIINot detectedNormalNOT DETECTEDThe [facility] HospitalComment on above:Performed By: #### CDIFPOC #### [facility] [address] [address] [address] Timi Dorsey. ShigelloidesNot detectedNormalNOT DETECTEDThe [facility] HospitalComment on above:Performed By: #### CDIFPOC #### [facility] [address] [address] [address] Timi PraterRotavirus ANot detectedNormalNOT DETECTEDHolzer Medical Center – [facility] Comment on above:Performed By: #### CDIFPOC #### [facility] [address] [place] [address] Dr. Timi PraterSalmonellaNot detectedNormalNOT DETECTEDHolzer Medical Center – [facility] Comment on above:Performed By: #### CDIFPOC #### [facility] [address] [place] [address] Dr. Timi PraterSapovirusNot detectedNormalNOT DETECTEDThe [facility] Comment on above:Performed By: #### CDIFPOC #### [facility] [address] [place] [address] Dr. Timi PraterSTECNot detectedNormalNOT DETECTEDThe [facility] HospitalComment on above:Performed By: #### CDIFPOC #### [facility] [address] [place] [address] Dr. Timi PraterVibrioNot detectedNormalNOT DETECTEDThe [facility] HospitalComment on above:Performed By: #### CDIFPOC #### [facility] [address] [place] [address] Dr. Timi Lopezio CholeraNot detectedNormalNOT DETECTEDHolzer Medical Center – [facility] Comment on above:Performed By: #### CDIFPOC #### [facility] [address] [place] [address] Dr. Timi Wallis. EnterocoliticaNot detectedNormalNOT DETECTEDThe [facility] HospitalComment on above:Performed By: #### CDIFPOC #### [facility] [address] [place] [address] Dr. Timi PraterLIPASEon 91-73-8019Tizywx [Catalytic activity/Vol]88.0 U/LNormal 73.0-393.0The [facility] HospitalComment on above:Performed By: #### OVAPE #### [facility] [address] [place] [address] Dr. iTmi PraterOCC BLD IMMUNO SCREENon 83-92-7072KRVLFY BLOODNegativeNormal NEGATIVEThe [facility] HospitalComment on above:Performed By: #### CALPOO #### [facility] [address] [place] [address] Dr. Timi TrujilloF 14(COMP METB)on 71-95-2545Dedwbaa [Mass/Vol]4.2 g/dLNormal 3.4-5.0The [facility] HospitalComment on above:Performed By: #### CALPOO #### [facility] [address] [address] [address] Timi PraterAlbumin/Globulin [Mass ratio]1.2 {ratio}NormalThe [facility] HospitalComment on above:Performed By: #### CALPOO #### [facility] [address] [address] [address] Timi GreenbergP [Catalytic activity/Vol]55 U/JVagfkv11-037Ics [facility] HospitalComment on above:Performed By: #### CALPOO #### [facility] [address] [place] [address] Dr. Timi GreenbergT [Catalytic activity/Vol]14 U/WJfmpew88-34Yfb [facility] HospitalComment on above:Performed By: #### CALPOO #### [facility] [address] [place] [address] Dr. Timi Salmon gap [Moles/Vol]11.9 mmol/LNormalThe [facility] Comment on above:Performed By: #### CALPOO #### [facility] [address] [place] [address] Dr. Timi PraterAST [Catalytic activity/Vol]13 U/LCritically ofc49-66Bjb [facility] HospitalComment on above:Performed By: #### CALPOO #### [facility] [address] [place] [address] Dr. Timi PraterBilirubin [Mass/Vol]0.6 mg/dLNormal0.2-1.0The [facility] Comment on above:Performed By: #### CALPOO #### [facility] [address] [place], [place] [address] [place]. Timi PraterCalcium [Mass/Vol]9.4 mg/dLNormal8.5-10.1The [facility] Comment on above:Performed By: #### CALPOO #### [facility] [address] [address] [address] Timi PraterChloride [Moles/Vol]104 mmol/TNfkddg98-755Oae [facility] Comment on above:Performed By: #### CALPOO #### [facility] [address] [address] [address] Timi PraterCO2 [Moles/Vol]26.6 mmol/NUytrsq21.0-32.0The [facility] Comment on above:Performed By: #### CALPOO #### [facility] [address] [address] [address] Timi PraterCreatinine [Mass/Vol]0.85 mg/dLNormal0.55-1.02The [facility] HospitalComment on above:Performed By: #### CALPOO #### [facility] [address] [address] [address] Capellan ChangEGFR-AF SOUTH SUD[place]ESE>60Normal>=60The [facility] HospitalComment on above:Performed By: #### CALPOO #### [facility] [address] [address] [address] Timi RomeroGFR-NON AF [place]>60Normal>=60The [facility] HospitalComment on above:Performed By: #### CALPOO #### [facility] [address] [address] [address] Timi PraterGlobulin (S) [Mass/Vol]3.6 g/dLNormalThe [facility] HospitalComment on above:Performed By: #### CALPOO #### [facility] [address] [address] [address] Timi PraterGlucose [Mass/Vol]100 mg/qTInmobj26-019Kvk [facility] Comment on above:Performed By: #### CALPOO #### [facility] [address] [address] [address] Timi PraterPotassium [Moles/Vol]3.5 mmol/LNormal3.5-5.1The [facility] Comment on above:Performed By: #### CALPOO #### [facility] [address] [address] [address] Timi PraterProtein [Mass/Vol]7.8 g/dLNormal6.4-8.2The [facility] Comment on above:Performed By: #### CALPOO #### [facility] [address] [place] [address] Dr. Timi PraterSodium [Moles/Vol]139 mmol/GFtwrrm962-417Gym [facility] Comment on above:Performed By: #### CALPOO #### [facility] [address] [place] [address] Dr. Timi PraterUrea nitrogen [Mass/Vol]13.0 mg/dLNormal7.0-18.0The [facility] HospitalComment on above:Performed By: #### CALPOO #### [facility] [address] [place] [address] Dr. Timi PraterUrea nitrogen/Creatinine [Mass ratio]15.3 mg/mgNormalThe [facility] HospitalComment on above:Performed By: #### CALPOO #### [facility] [address] [place] [address] Dr. Timi Gupta. DIFF PCRon 3C. DIFFICILE PCRNegativeNormalNEGATIVEThe [facility] HospitalComment on above:Performed By: #### THYRABS #### [facility] [address] [place] [address] Dr. Timi PraterPANCREATIC ELASTASE FECALon 81-66-7781Iaxqwsaree Elastase, Fecal 253 ug Elast./gNormal>200The [facility] HospitalComment on above:Result Comment: Severe Pancreatic Insufficiency: <100 Moderate Pancreatic Insufficiency: 100 - 200 Normal: >200Performed By: #### CALPOO #### [facility] [address] [place] [address] Dr. Timi Chino SINGLE QUAD RT UPPERon [id number] SINGLE QUAD RT UPPEREXAM: US SINGLE QUAD [...] Electronically authenticated by: DARA SAVAGE Date: 2022-10-31 08:39No[facility] AUTO DIFFon [id number] #0.1 103/ulNormal0.0-0.1The [facility] HospitalComment on above:Performed By: #### CBC #### [facility] [address] [address] [address] Timi PraterBasophils/100 WBC (Bld)0.9 %Normal0.2-2.0[facility] Comment on above:Performed By: #### CBC #### [facility] [address] [address] [address] Timi Mejia #0.1 103/ulNormal0.0-0.7The [facility] HospitalComment on above: Performed By: #### CBC #### [facility] [address] [address] [address] Timi Romeroosinophils/100 WBC (Bld)2.6 %Normal0.9-7.0[facility] Comment on above:Performed By: #### CBC #### [facility] [address] [address] [address] Timi Romerorythrocyte distribution width (RBC) [Ratio]11.9 %Eftfro91.0-15.0 The [facility] HospitalComment on above:Performed By: #### CBC #### [facility] [address] [address] [address] Timi PraterHematocrit (Bld) [Volume fraction]41.0 %Qmvaee58.0-48.0The [facility] HospitalComment on above:Performed By: #### CBC #### [facility] [address] [place] [address] Dr. Timi PraterHemoglobin (Bld) [Mass/Vol]14.2 g/vJBrvxix45.0-16.0The [facility] HospitalComment on above:Performed By: #### CBC #### [facility] [address] [place] [address] Dr. Timi Delong #0.02 10e3/ulNormal0.00-0.03The [facility] HospitalComment on above:Performed By: #### CBC #### [facility] [address] [place] [address] Dr. iTmi Delong %0.4 %Normal0.0-0.5The [facility] HospitalComment on above: Performed By: #### CBC #### [facility] [address] [place] [address] Dr. Timi Webster #1.7 103/ulNormal1.2-3.8The [facility] HospitalComment on above:Performed By: #### CBC #### [facility] [address] [place] [address] Dr. Timi Malcolmhocytes/100 WBC (Bld)31.2 %Kefwlp30.5-60.0The [facility] HospitalCommckenzie memorial hospital on above:Performed By: #### CBC #### [facility] [address] [place] [address] Dr. Timi SandersUAL DIFF REQNONormalThe [facility] HospitalComment on above: Performed By: #### CBC #### [facility] [address] [place] [address] Dr. Timi Escamilla (RBC) [Entitic mass]31.7 ntYlsiht66.7-34.0The [facility] HospitalComment on above:Performed By: #### CBC #### [facility] [address] [place] [address] Dr. Timi Escamilla (RBC) [Mass/Vol]34.6 g/lEHwogfo91.9-35.2The [facility] HospitalComment on above:Performed By: #### CBC #### [facility] [address] [address] [address] Timi EscamillaV (RBC) [Entitic vol]91.5 zTRlopam45.0-99.0The [facility] HospitalComment on above:Performed By: #### CBC #### [facility] [address] [address] [address] Timi Ortiz #0.5 103/ulNormal0.3-0.8The Branch HospitalComment on above:Performed By: #### CBC #### [facility] [address] [address] [address] Timi Turciosocytes/100 WBC (Bld)8.7 %Normal1.7-12.0The [facility] on above:Performed By: #### CBC #### [facility] [address] [place] [address] Dr. Timi Mott #3.1 103/ulNormal1.4-6.5The [facility] HospitalComment on above:Performed By: #### CBC #### [facility] [address] [place] [address] Dr. Timi Guzmanutrophils/100 WBC (Bld)56.2 %Qbropd76.0-75.0The [facility] HospitalComment on above:Performed By: #### CBC #### [facility] [address] [place] [address] Dr. Timi Zamanlet mean volume (Bld) [Entitic vol]10.8 fLNormal9.5-13.5The [facility] HospitalComment on above:Performed By: #### CBC #### [facility] [address] [place] [address] Dr. Timi PraterPLT219 103/lmXneirk228-257Lbe [facility] HospitalComment on above: Performed By: #### CBC #### [facility] [address] [place] [address] Dr. Timi PraterRBC4.48 106/ulNormal4.20-5.40The [facility] HospitalComment on above:Performed By: #### CBC #### [facility] [address] [place] [address] Dr. Timi PraterWBC5.4 103/ulNormal4.0-11.0The [facility] HospitalComment on above: Performed By: #### CBC #### [facility] [address] [place] [address] Dr. Timi PraterPROF 14(COMP METB)on 49-89-9564Fejivfv [Mass/Vol]4.5 g/dLNormal 3.4-5.0The [facility] HospitalComment on above:Performed By: #### CDIFPOC #### [facility] [address] [place] [address] Dr. Timi PraterAlbumin/Globulin [Mass ratio]1.5 {ratio}NormalThe [facility] HospitalComment on above:Performed By: #### CDIFPOC #### [facility] [address] [place] [address] Dr. Timi Ocnonor [Catalytic activity/Vol]56 U/WEiwczd08-265Ngv [facility] HospitalComment on above:Performed By: #### CDIFPOC #### [facility] [address] [place] [address] Dr. Timi Pizarro [Catalytic activity/Vol]16 U/IEtrudt31-23Vad [facility] HospitalComment on above:Performed By: #### CDIFPOC #### [facility] [address] [place] [address] Dr. Timi Salmon gap [Moles/Vol]15.5 mmol/LNormalThe [facility] on above:Performed By: #### CDIFPOC #### [facility] [address] [place] [address] Dr. Timi Vizcaino [Catalytic activity/Vol]13 U/LCritically qrs94-44Dcy [facility] HospitalComment on above:Performed By: #### CDIFPOC #### [facility] [address] [place] [address] Dr. Timi PraterBilirubin [Mass/Vol]0.6 mg/dLNormal0.2-1.0The [facility] Comment on above:Performed By: #### CDIFPOC #### [facility] [address] [place] [address] Dr. Timi PraterCalcium [Mass/Vol]9.3 mg/dLNormal8.5-10.1[facility] Comment on above:Performed By: #### CDIFPOC #### [facility] [address] [place] [address] Dr. Timi PraterChloride [Moles/Vol]104 mmol/XMfqsrd77-276Nwr [facility] Comment on above:Performed By: #### CDIFPOC #### [facility] [address] [place] [address] Dr. Timi PraterCO2 [Moles/Vol]25.7 mmol/VAhtpbd12.0-32.0[facility] Comment on above:Performed By: #### CDIFPOC #### [facility] [address] [place] [address] Dr. Timi PraterCreatinine [Mass/Vol]0.71 mg/dLNormal0.55-1.02The [facility] HospitalComment on above:Performed By: #### CDIFPOC #### [facility] [address] [place] [address] Dr. Timi RomeroGFR-AF [place]>60Normal>=60The [facility] HospitalComment on above:Performed By: #### CDIFPOC #### [facility] [address] [place] [address] Dr. Timi RomeroGFR-NON AF [place]>60Normal>=60The [facility] HospitalComment on above:Performed By: #### CDIFPOC #### [facility] [address] [place] [address] Dr. Timi PraterGlobulin (S) [Mass/Vol]3.1 g/dLNormalThe [facility] HospitalComment on above:Performed By: #### CDIFPOC #### [facility] [address] [place] [address] Dr. Timi PraterGlucose [Mass/Vol]77 mg/eASrtncz72-079KxjHolzer Medical Center – [facility] Comment on above:Performed By: #### CDIFPOC #### [facility] [address] [place] [address] Dr. Timi PraterPotassium [Moles/Vol]4.2 mmol/LNormal3.5-5.1The [facility] Comment on above:Performed By: #### CDIFPOC #### [facility] [address] [place] [address] Dr. Timi PraterProtein [Mass/Vol]7.6 g/dLNormal6.4-8.2The [facility] Comment on above:Performed By: #### CDIFPOC #### [facility] [address] [place] [address] Dr. Timi PraterSodium [Moles/Vol]141 mmol/ZRtgnbl974-965PztHolzer Medical Center – [place] Comment on above:Performed By: #### CDIFPOC #### [facility] [address] [place] [address] Dr. Timi PraterUrea nitrogen [Mass/Vol]15.0 mg/dLNormal7.0-18.0The [facility] HospitalComment on above:Performed By: #### CDIFPOC #### [facility] [address] [place] [address] Dr. Timi Villa nitrogen/Creatinine [Mass ratio]21.1 mg/mgNormalThe [facility] HospitalComment on above:Performed By: #### CDIFPOC #### [facility] [address] [place] [address] Dr. Timi PraterLIPASEon 74-66-6089Yksdkv [Catalytic activity/Vol]117.0 U/LNormal 73.0-393.0[facility] JacksonComment on above:Performed By: #### CDIFPOC #### [facility] [address] [place] [address] Dr. Timi PraterCT ABD/PELV W CONon [id number] ABD/PELV W CONEXAMINATION: CT ABD/PELV W CON [...] Electronically authenticated by: AZAEL GRIFFIN Date: 2022-10-18 11:02[facility] HospitalCORTISOL 24HR URINEon [id number],F,ug/24hr,U19 ug/24 hr Normal6-42The [facility] HospitalComment on above:Performed By: #### CORT24 #### [facility] [address] [place] [address] Dr. Timi PraterCortisol,F,ug/L,U18 ug/LNormalUndefinedHolzer Medical Center [facility] Comment on above:Performed By: #### MDQL93 #### [facility] [address] [place] [address] Dr. Timi PraterCLOSTRIDIUM DIFFICILE PCRon 10-06-2022 difficile Toxin Gene RUCHI NegativeNormalNegativeHolzer Medical Center – JacksonCommckenzie memorial hospital on above:Performed By: #### CALPOO #### [facility] [address] [place] [address] Dr. Timi PraterREVERSE T3on 37-31-7561Emitvsc T3, Serum19.3 ng/dLNormal9.2-24.1 The [facility] HospitalCommckenzie memorial hospital on above:Result Comment: This test was developed and its performance characteristics determined by [employer]. It has not been cleared or approved by the Food and Drug Administration.Performed By: #### OVAPE #### [facility] [address] [place] [address] Dr. Timi PraterC. DIFF PCRon 09-28-2022. DIFFICILE PCRNegativeNormalNEGATIVEThe [facility] HospitalComment on above:Performed By: #### CDIFPOC #### [facility] [address] [place] [address] Dr. Timi PraterFREE T4on 10-56-7481Vbpr T4 [Mass/Vol]0.89 ng/dLNormal0.76-1.46 [facility] JacksonCommckenzie memorial hospital on above:Performed By: #### THYRABS #### [facility] [address] [place] [address] Dr. Timi PraterCORTISOL Mely 50-09-4474Fzocakby AM23.5 ug/dLCritically high 6.2-19.4The [facility] HospitalComment on above:Performed By: #### CDIFPOC #### [facility] [address] [place] [address] Dr. Timi PraterTHYROID ANTIBODIESon 51-06-9192Upaewoasmvdkm Antibody<1.0Normal 0.0-0.9[facility] on above:Result Comment: Thyroglobulin Antibody measured by myinfoQ MethodologyPerformed By: #### THYRABS #### [facility] [address] [place] [address] Dr. Timi PraterThyroid Peroxidase (TPO) Ab10 IU/mLNormal0-34The [facility] Health Centerment on above:Performed By: #### THYRABS #### [facility] [address] [place] [address] Dr. Timi PraterT3, TOTAL (TRIIODOTHYRONINE)on 98-19-1549Z8, MOUHA712 ng/dLNormal 71-180The [facility] HospitalComment on above:Performed By: #### OVAPE #### [facility] [address] [place] [address] Dr. Timi PraterFREE T3on 57-65-5854EFSZ T32.65 pg/mlLNormal2.18-3.98The [facility] HospitalCommckenzie memorial hospital on above:Performed By: #### CDIFPOC #### [facility] [address] [place] [address] Dr. Timi PraterTSHon 98-01-5948YAI2.156 uIU/mLNormal0.358-3.740The [facility] HospitalCommckenzie memorial hospital on above:Performed By: #### CDIFPOC #### [facility] [address] [place] [address] Dr. Timi Siddiqui PYLORI AG STOOLon 09-14-2022H. pylori Stool Ag, EIA NegativeNormalNegativeHolzer Medical Center – JacksonCommckenzie memorial hospital on above:Performed By: #### HPYLORI #### [facility] [address] [place] [address] Dr. Timi Gupta. DIFF PCRon 09-12-2022. DIFFICILE PCRNegativeNormalNEGATIVEHolzer Medical Center – JacksonCommckenzie memorial hospital on above:Performed By: #### CDIFPOC #### [facility] [address] [place] [address] Dr. Timi Alvarado CULTUREon 25-96-2333Trszdjxcctein CultureFinal reportNormal The [facility] HospitalCommckenzie memorial hospital on above:Performed By: #### OVAPE #### [facility] [address] [place] [address] Dr. Timi Romero coli Shiga Toxin EIANegativeNormalNegativeThe [facility] Comment on above:Performed By: #### OVAPE #### [facility] [address] [place] [address] Dr. Timi Velasquez 1CommentMercy Health Fairfield HospitalComment on above:Result Comment: No Salmonella or Shigella recovered.Performed By: #### OVAPE #### [facility] [address] [place] [address] Dr. Timi Velasquez Comment: No Campylobacter species isolated. Salmonella/Shigella ScreenFinal reportNoPike Community HospitalComment on above:Performed By: #### OVAPE #### [facility] [address] [place] [address] Dr. Timi PraterCALPROTECTIN, FECALon 11-89-2576Bgjkhgybuojd, Fecal<07Eqjrpo1-059 [facility] JacksonComment on above:Result Comment: Concentration Interpretation Follow-Up <16 - 50 ug/g Normal None >50 -120 ug/g Borderline Re-evaluate in 4-6 weeks >120 ug/g Abnormal Repeat as clinically indicatedPerformed By: #### CALPOO #### [facility] [address] [place] [address] Dr. Timi Gupta. DIFF PCRon 08-30-2022. DIFFICILE PCRNegativermalNEGATIVEHolzer Medical Center – JacksonComment on above:Performed By: #### OVAPE #### [facility] [address] [place] [address] Dr. Timi PadronOSTRIDIUM DIFFICILE PCRon 08-26-2022 difficile Toxin Gene RUCHI NegativeNormalNegativeHolzer Medical Center – JacksonComment on above:Performed By: #### CALPOO #### [facility] [address] [place] [address] Dr. Timi Newman URINE PROFILEon 59-84-7137Mklnkucot Ql (U)NegativeNormal NEGATIVEHolzer Medical Center – JacksonComment on above:Performed By: #### THYRABS #### [facility] [address] [place] [address] Dr. Timi Padronarity (U)CLEARNormalCLEARHolzer Medical Center – JacksonComment on above: Performed By: #### THYRABS #### [facility] [address] [address] [address] Timi Powell (U)LT. YELLOWNormalYELLOWHolzer Medical Center – JacksonComment on above:Performed By: #### THYRABS #### [facility] [address] [address] [address] Timi Sue micrscopic examination will be performed if indicated. NormalThe Branch HospitalComment on above:Performed By: #### THYRABS #### [facility] [address] [address] [address] Timi PraterGlucose Ql (U)NegativeNormalNEGATIVEHolzer Medical Center – JacksonComment on above:Performed By: #### THYRABS #### [facility] [address] [place] [address] Dr. Timi PraterHemoglobin Ql (U)NegativeNormalNEGATIVESumma Health Barberton Campus on above:Performed By: #### THYRABS #### [facility] [address] [place] [address] Dr. Timi PraterKetones Ql (U)NegativeNormalNEGATIVEHolzer Medical Center – JacksonComment on above:Performed By: #### THYRABS #### [facility] [address] [place] [address] Dr. Timi PraterLEUKOCYTESNegativeNormalNEGATIVEHolzer Medical Center – JacksonComment on above:Performed By: #### THYRABS #### [facility] [address] [place] [address] Dr. Timi PraterNitrite Ql (U)NegativeNormalNEGATIVEHolzer Medical Center – JacksonComment on above:Performed By: #### THYRABS #### [facility] [facility] [address] [address] [address] Timi PraterpH (U)7.0 [pH]Normal5-9[facility] – JacksonComment on above: Performed By: #### THYRABS #### [facility] [address] [address] [address] Timi PraterSPEC GRAVITY1.510Xuywdz9.005-<=1.025The [facility] Memorial HospitalComment on above:Performed By: #### THYRABS #### [facility] [address] [place] [address] Dr. Timi Nickerson PROTEINTRACENormalNEGATIVE/ TRACEThe [facility] HospitalComment on above:Performed By: #### THYRABS #### [facility] [address] [place] [address] Dr. Timi Pinzon MICRO INDNOT INDICATEDNormalThe [facility] HospitalComment on above:Performed By: #### THYRABS #### [facility] [address] [place] [address] Dr. Timi Acuña Qn (U)0.2 {Trini'U}/dLNormal0.2 - 1.0The [facility] HospitalComment on above:Performed By: #### THYRABS #### [facility] [address] [place] [address] Dr. Timi Gupta. DIFF PCRon 08-22-2022. DIFFICILE PCRNegativeNormalNEGATIVEThe [facility] HospitalComment on above:Performed By: #### CDIFPOC #### [facility] [address] [place] [address] Dr. Timi Rios RITA ADMITon [id number] [Catalytic activity/Vol]56 U/L Beoatb47-596Tjn [facility] HospitalComment on above:Performed By: #### OVAPE #### [facility] [address] [place] [address] Dr. Timi Pierre.MB [Mass/Vol]ng/mLNormal<=3.60The [facility] HospitalComment on above:Performed By: #### OVAPE #### [facility] [address] [place] [address] Dr. Timi PraterHSTROP9.0 pg/mLNormal4.0-51.3The [facility] HospitalComment on above:Result Comment: CUT-OFF POINTS HAVE BEEN ESTABLISHED BASED ON THE FOURTH UNIVERSAL DEFINITIONS OF MYOCARDIAL INFARCTION. THE UPPER REFERENCE LIMIT (URL) OF TROPONIN, DEFINED THE 99TH PERCENTILE OF cTnI DISTRIBUTION IN A REFERENCE POPULATION, HAS BEEN CONFIRMED THE DECISION THRESHOLD FOR AR DIAGNOSIS.Performed By: #### OVAPE #### [facility] [address] [place] [address] Dr. Timi PraterMYO15 ng/mLNormal9-82[facility] JacksonComment on above: Performed By: #### OVAPE #### [facility] [address] [place] [address] Dr. Timi Willett AUTO DIFFon [id number] #0.1 103/ulNormal0.0-0.1The [facility] HospitalComment on above:Performed By: #### CALPOO #### [facility] [address] [place] [address] Dr. Timi PraterBasophils/100 WBC (Bld)0.7 %Normal0.2-2.0[facility] Comment on above:Performed By: #### CALPOO #### [facility] [address] [place] [address] Dr. Timi Mejia #0.2 103/ulNormal0.0-0.7The [facility] HospitalComment on above: Performed By: #### CALPOO #### [facility] [address] [place] [address] Dr. Timi Romeroosinophils/100 WBC (Bld)2.7 %Normal0.9-7.0[facility] Comment on above:Performed By: #### CALPOO #### [facility] [address] [place] [address] Dr. Timi Romerorythrocyte distribution width (RBC) [Ratio]11.9 %Bhbyzc63.0-15.0 The [facility] Memorial HospitalComment on above:Performed By: #### CALPOO #### [facility] [address] [place] [address] Dr. Timi PraterHematocrit (Bld) [Volume fraction]39.0 %Ffxygc72.0-48.0[facility] JacksonComment on above:Performed By: #### CALPOO #### [facility] [address] [place] [address] Dr. Timi PraterHemoglobin (Bld) [Mass/Vol]13.3 g/sZCscapp20.0-16.0The [facility] HospitalComment on above:Performed By: #### CALPOO #### [facility] [address] [place] [address] Dr. Tmii Delong #0.02 10e3/ulNormal0.00-0.03The [facility] HospitalComment on above:Performed By: #### CALPOO #### [facility] [address] [place] [address] Dr. Timi Delong %0.2 %Normal0.0-0.5The [facility] HospitalComment on above: Performed By: #### CALPOO #### [facility] [address] [place] [address] Dr. Timi Malcolm #3.7 103/ulNormal1.2-3.8The [facility] HospitalComment on above:Performed By: #### CALPOO #### [facility] [address] [place] [address] Dr. Timi Malcolmhocytes/100 WBC (Bld)43.6 %Rvfcyj84.5-60.0The [facility] HospitalComment on above:Performed By: #### CALPOO #### [facility] [address] [place] [address] Dr. Timi SandersUAL DIFF REQNONormalThe [facility] HospitalComment on above: Performed By: #### CALPOO #### [facility] [address] [place] [address] Dr. Timi Escamilla (RBC) [Entitic mass]31.7 hcJxevnr39.7-34.0The [facility] HospitalComment on above:Performed By: #### CALPOO #### [facility] [address] [place] [address] Dr. Timi Escamilla (RBC) [Mass/Vol]34.1 g/yJYmlgvc60.9-35.2The [facility] HospitalComment on above:Performed By: #### CALPOO #### [facility] [address] [place] [address] Dr. Timi EscamillaV (RBC) [Entitic vol]93.1 dUYewrnr29.0-99.0The [facility] Centerment on above:Performed By: #### CALPOO #### [facility] [address] [place] [address] Dr. Timi Ortiz #0.8 103/ulNormal0.3-0.8The [facility] HospitalComment on above:Performed By: #### CALPOO #### [facility] [address] [place] [address] Dr. Timi Turciosocytes/100 WBC (Bld)8.9 %Normal1.7-12.0The [facility] Comment on above:Performed By: #### CALPOO #### [facility] [address] [place] [address] Dr. Timi Mott #3.8 103/ulNormal1.4-6.5The [facility] Centerment on above:Performed By: #### CALPOO #### [facility] [address] [place] [address] Dr. Timi Guzmanutrophils/100 WBC (Bld)43.9 %Nabnlq16.0-75.0The [facility] HospitalCommckenzie memorial hospital on above:Performed By: #### CALPOO #### [facility] [address] [place] [address] Dr. Timi Zamanlet mean volume (Bld) [Entitic vol]11.1 fLNormal9.5-13.5The [facility] Centerment on above:Performed By: #### CALPOO #### [facility] [address] [place] [address] Dr. Timi PraterPLT218 103/kfXfsgub129-029Uhv [facility] HospitalCommckenzie memorial hospital on above: Performed By: #### CALPOO #### [facility] [address] [place] [address] Dr. Timi PraterRBC4.19 106/ulCritically low4.20-5.40The [facility] Centerment on above:Performed By: #### CALPOO #### [facility] [address] [place] [address] Dr. Timi PraterWBC8.6 103/ulNormal4.0-11.0The [facility] HospitalComment on above: Performed By: #### CALPOO #### [facility] [address] [place] [address] Dr. Timi TrujilloF 14(COMP METB)on 34-14-9375Fvjivrf [Mass/Vol]4.2 g/dLNormal 3.4-5.0The [facility] HospitalComment on above:Performed By: #### OVAPE #### [facility] [address] [place] [address] Dr. Timi PraterAlbumin/Globulin [Mass ratio]1.3 {ratio}NormalThe [facility] HospitalComment on above:Performed By: #### OVAPE #### [facility] [address] [place] [address] Dr. Timi GreenbergP [Catalytic activity/Vol]50 U/PDeydpw58-685Cwf [facility] HospitalComment on above:Performed By: #### OVAPE #### [facility] [address] [place] [address] Dr. Timi Pizarro [Catalytic activity/Vol]13 U/LCritically ibs71-81Xym [facility] HospitalComment on above:Performed By: #### OVAPE #### [facility] [address] [place] [address] Dr. Timi Salmon gap [Moles/Vol]13.8 mmol/LNormalThe [facility] Comment on above:Performed By: #### OVAPE #### [facility] [address] [place] [address] Dr. Timi PraterAST [Catalytic activity/Vol]14 U/LCritically izc99-30Mxw [facility] HospitalComment on above:Performed By: #### OVAPE #### [facility] [address] [place] [address] Dr. Timi PraterBilirubin [Mass/Vol]0.4 mg/dLNormal0.2-1.0The [facility] Comment on above:Performed By: #### OVAPE #### [facility] [address] [address] [address] Timi PraterCalcium [Mass/Vol]9.2 mg/dLNormal8.5-10.1The [facility] Comment on above:Performed By: #### OVAPE #### [facility] [address] [address] [address] Timi PraterChloride [Moles/Vol]102 mmol/JHlaglk67-131Eki [facility] Comment on above:Performed By: #### OVAPE #### [facility] [address] [address] [address] Timi PraterCO2 [Moles/Vol]26.9 mmol/UJkswkp02.0-32.0The [facility] Comment on above:Performed By: #### OVAPE #### [facility] [address] [address] [address] Timi PraterCreatinine [Mass/Vol]0.73 mg/dLNormal0.55-1.02The [facility] HospitalComment on above:Performed By: #### OVAPE #### [facility] [address] [address] [address] Timi RomeroGFR-AF SOUTH SUDANESE>60Normal>=60The [facility] HospitalComment on above:Performed By: #### OVAPE #### [facility] [address] [address] [address] Timi RomeroGFR-NON AF [place]UD[place]ESE>60Normal>=60The [facility] HospitalComment on above:Performed By: #### OVAPE #### [facility] [address] [address] [address] Timi PraterGlobulin (S) [Mass/Vol]3.3 g/dLNormalThe [facility] HospitalComment on above:Performed By: #### OVAPE #### [facility] [address] [address] [address] Timi PraterGlucose [Mass/Vol]107 mg/dLCritically mfzb34-505Ibd [facility] HospitalComment on above:Performed By: #### OVAPE #### [facility] [address] [address] [address] Timi PraterPotassium [Moles/Vol]3.7 mmol/LNormal3.5-5.1[facility] Comment on above:Performed By: #### OVAPE #### [facility] [address] [address] [address] Timi PraterProtein [Mass/Vol]7.5 g/dLNormal6.4-8.2[facility] Comment on above:Performed By: #### OVAPE #### [facility] [address] [address] [address] Timi PraterSodium [Moles/Vol]139 mmol/TXbwxgp597-416DhvHolzer Medical Center – Jackson Comment on above:Performed By: #### OVAPE #### [facility] [address] [place] [address] Dr. Timi PraterUrea nitrogen [Mass/Vol]14.0 mg/dLNormal7.0-18.0[facility] JacksonComment on above:Performed By: #### OVAPE #### [facility] [address] [place] [address] Dr. Timi PraterUrea nitrogen/Creatinine [Mass ratio]19.2 mg/mgNoPike Community HospitalComment on above:Performed By: #### OVAPE #### [facility] [address] [place] [address] Dr. Timi Sanz ACOG PANEL 2: 21 to 29on 08-21-2022..NormalThe [facility] HospitalComment on above:Performed By: #### OVAPE #### [facility] [address] [place] [address] Dr. Timi Martinez Gdln ACOG Lnzfdyv59-80CstguvVttPike Community HospitalComment on above:Performed By: #### OVAPE #### [facility] [address] [place] [address] Dr. Timi PraterDIAGNOSIS:CommentAbMercy Health St. Joseph Warren HospitalComment on above: Result Comment: EPITHELIAL CELL ABNORMALITY. ATYPICAL SQUAMOUS CELLS OF UNDETERMINED SIGNIFICANCE (ASC-US).Performed By: #### OVAPE #### [facility] [address] [address] [address] Capellan ChangElectronically signed by:[facility] Comment on above:Result Comment: Maranda Segal MD, PathologistPerformed By: #### OVAPE #### [facility] [address] [address] [address] Timi PraterHPV AptimaNegativeNormalNegativeThe [facility] HospitalComment on above:Result Comment: This nucleic acid amplification test detects fourteen high-risk HPV types (16,18,31,33,35,39,45,51,52,56,58,59,66,68) without differentiation.Performed By: #### OVAPE #### [facility] [address] [place] [address] Dr. Timi PraterMethodology:[facility] on above: Result Comment: This liquid based ThinPrep(R) pap test was screened with the use of an image guided system.Performed By: #### OVAPE #### [facility] [address] [place] [address] Dr. Timi PraterNote:CommentSumma Health Wad[facility] - [facility] on above:Result Comment: The Pap smear is a screening test designed to aid in the detection of premalignant and malignant conditions of the uterine cervix. It is not a diagnostic procedure and should not be used as the sole means of detecting cervical cancer. Both false-positive and false-negative reports do occur. .Performed By: #### OVAPE #### [facility] [address] [address] [address] Timi PraterPathologist Provided COB61BgjdacdZvqhfeEifMercy Health [facility] Hospital Comment on above:Result Comment: [id number] By: #### OVAPE #### [facility] [address] [address] [address] Timi PraterPerformed by:[facility] on above: Result Comment: Melia Holguin, Biomass Technician (ASCP)Performed By: #### OVAPE #### [facility] [address] [place] [address] Dr. Timi PraterRecommendation:CommentAbOhio State University [facility] on above:Result Comment: Suggest follow up as clinically appropriate.Performed By: #### OVAPE #### [facility] [address] [place] [address] Dr. Timi PraterReflex Criteria:CommentSumma Health Wadsworth - Rittman Medical Center on above:Result Comment: See below for HPV testing results. .Performed By: #### OVAPE #### [facility] [address] [place] [address] Dr. Timi PraterSpecimen adequacy:CommentSumma Health Wadsworth - Rittman Medical Center on above:Result Comment: Satisfactory for evaluation. Endocervical and/or squamous metaplastic cells (endocervical component) are present.Performed By: #### OVAPE #### [facility] [address] [place] [address] Dr. Timi Gupta. DIFF PCRon 07-27-2022. DIFFICILE PCRPositiveCritically abnormalNEGATIVEThe [facility] HospitalComment on above:Performed By: #### THYRABS #### [facility] [address] [place] [address] Dr. Timi Gupta. DIFF PCRon 07-13-2022. DIFFICILE PCRNegativeNormalNEGATIVEThe [facility] HospitalComment on above:Performed By: #### CDIFPOC #### [facility] [address] [place] [address] Dr. Timi PraterUS SINGLE QUAD RT UPPERon [id number] SINGLE QUAD RT UPPER EXAMINATION: US SINGLE [...] authenticated by: DARA HUMPHREY Date: 2022-05-11 17:22NormalThe [facility] HospitalFECAL FAT QUANTITATIVEon 88-62-4628Kbksv Weight (Total)233 g NormalThe [facility] HospitalComment on above:Performed By: #### CALPOO #### [facility] [address] [place] [address] Dr. Timi Gandhi, (Fecal Lipids)Qn1.3 g/24 hrNormal0.0-7.1The [facility] Centerment on above:Result Comment: This value is based on a 72 hour stool collection.Performed By: #### CALPOO #### [address] [address] [address] Timi PraterLACTOFERRIN FECAL QUANTon 46-60-6035Dwcyycjfadk, Fecal, Quant. <1.38Kxiqbk6.00-7.24The [facility] on above:Result Comment: Results verified by [...] bowel syndrome (IBS).Performed By: #### CALPOO #### [facility] [address] [place] [address] Dr. Timi PraterPANCREATIC ELASTASE FECALon 4824Qfiocnfwcr Elastase, Fecal 369 ug Elast./gNormal>200The [facility] on above:Result Comment: Severe Pancreatic Insufficiency: <100 Moderate Pancreatic Insufficiency: 100 - 200 Normal: >200Performed By: #### THYRABS #### [address] [address] [address] Timi PraterC. DIFF PCRon 2C. DIFFICILE PCRNegativeNormalNEGATIVEThe [facility] Centerment on above:Performed By: #### OVAPE #### [facility] [address] [place] [address] Dr. Timi Blanchard PANEL (PCR)on [id number] F 40/41Not detectedNormal NOT DETECTEDThe [facility] HospitalComment on above:Performed By: #### GIPANEL #### [facility] [address] [place] [address] Dr. Timi PraterAstrovirusNot detectedNormalNOT DETECTEDThe [facility] Comment on above:Performed By: #### GIPANEL #### [facility] [address] [place] [address] Dr. Timi Gupta. Diff toxin A/BNot detectedNormalNOT DETECTEDThe [facility] HospitalComment on above:Performed By: #### GIPANEL #### [facility] [address] [place] [address] Dr. Timi ChupylobacterNot detectedNormalNOT DETECTEDThe [facility] Comment on above:Performed By: #### GIPANEL #### [facility] [address] [place] [address] Dr. Timi TrevinoyptosporidiumNot detectedNormalNOT DETECTEDThe [facility] HospitalComment on above:Performed By: #### GIPANEL #### [facility] [address] [place] [address] Dr. Timi Christensen. CayetanensisNot detectedNormalNOT DETECTEDThe [facility] HospitalComment on above:Performed By: #### MEREDITHANEL #### [facility] [address] [place] [address] Dr. Timi Santos Coli I779Vey ApplicableNormalNot ApplicableThe [facility] HospitalComment on above:Performed By: #### GIPANEL #### [facility] [address] [place] [address] Dr. Timi Santos histolyticaNot detectedNormalNOT DETECTEDThe [facility] Comment on above:Performed By: #### GIPANEL #### [facility] [address] [place] [address] Dr. Timi RomeroAECNot detectedNormalNOT DETECTEDThe [facility] HospitalComment on above:Performed By: #### GIPANEL #### [facility] [address] [address] [address] Timi Graham detectedNormalNOT DETECTEDThe [facility] HospitalComment on above:Performed By: #### GIPANEL #### [facility] [address] [address] [address] Timi RomeroPECNot detectedNormalNOT DETECTEDThe [facility] HospitalComment on above:Performed By: #### GIPANEL #### [facility] [address] [address] [address] Timi RomeroTEHaley detectedNormalNOT DETECTEDThe [facility] HospitalComment on above:Performed By: #### MEREDITHANEL #### [facility] [address] [address] [address] Timi Rodriguez LambliaNot detectedNormalNOT DETECTEDThe [facility] Comment on above:Performed By: #### DAVEL #### [facility] [address] [address] [address] Timi BRYSONAultman HospitalComment on above:Performed By: #### MEREDITHANEL #### [facility] [address] [address] [address] Timi Jay ANITA HEADERGI [facility] Comment on above:Performed By: #### MEREDITHANEL #### [facility] [address] [address] [address] Timi Moon ECOLIGI PANEL DIARRHEAGENIC E.COLI / SHIGELLAMercy Health Fairfield HospitalComment on above:Performed By: #### MEREDITHANEL #### [facility] [address] [address] [address] Timi Moon INFOProtestant Deaconess HospitalComment on above: Result Comment: EAEC- Enteroaggregative E. Coli EPEC- Enteropathogenic E. Coli ETEC- Enterotoxigenic E. Coli lt/st STEC- Shigella-like toxin-producing E. Coli stx1/stx2 EIEC- Shigella/Enteroinvasive E. ColiPerformed By: #### GIPANEL #### [facility] [address] [address] [address] Timi Moon PARASITESGI PANEL [facility] Comment on above:Performed By: #### MEREDITHANEL #### [facility] [address] [address] [address] Timi Moon VIRUSGI PANEL VIRUSESMercy Health Fairfield HospitalComment on above:Performed By: #### MERDEITHANEL #### [facility] [address] [address] [address] Timi Heartrovirus GI/GIINot detectedNormalNOT DETECTEDThe [facility] HospitalComment on above:Performed By: #### MEREDITHANEL #### [facility] [address] [address] [address] Timi Ibanez ShigelloidesNot detectedNormalNOT DETECTEDThe [facility] HospitalComment on above:Performed By: #### DAVEL #### [facility] [address] [address] [address] Timi PraterRotavirus ANot detectedNormalNOT DETECTEDHol[facility] – [facility] Comment on above:Performed By: #### DAVEL #### [facility] [address] [address] [address] Timi PraterSalmonellaNot detectedNormalNOT DETECTEDHolzer Medical Center – [place] Comment on above:Performed By: #### DAVEL #### [facility] [address] [address] [address] Timi PraterSapovirusNot detectedNormalNOT DETECTEDHolzer Medical Center – [place] Comment on above:Performed By: #### MEREDITHANEL #### [facility] [address] [address] [address] Timi PraterSTECNot detectedNormalNOT DETECTEDThe [facility] HospitalComment on above:Performed By: #### DAVEL #### [facility] [address] [address] [address] Timi PraterVibrioNot detectedNormalNOT DETECTEDThe [facility] HospitalComment on above:Performed By: #### GIPANEL #### [facility] [address] [address] [address] Timi Gregory CholeraNot detectedNormalNOT DETECTEDHol[facility] Medical Center – [place] Comment on above:Performed By: #### GIPANEL #### [facility] [address] [place] [address] Dr. Timi Wallis. EnterocoliticaNot detectedNormalNOT DETECTEDThe [facility] HospitalComment on above:Performed By: #### GIPANEL #### [facility] [address] [address] [address] Timi Alvarado CULTUREon 76-51-1761Atbfatumhhpcc CultureFinal reportNormal [facility] JacksonComment on above:Performed By: #### CXSTOOL #### [facility] [address] [place] [address] Dr. Timi pandey Shiga Toxin EIANegativeNormalNegativeHolzer Medical Center – [place] Comment on above:Performed By: #### CXSTOOL #### [facility] [address] [place] [address] Dr. Timi Velasquez 1CommentMercy Health Fairfield HospitalComment on above:Result Comment: No Salmonella or Shigella recovered.Performed By: #### CXSTOOL #### [facility] [address] [place] [address] Dr. Timi Velasquez Comment: No Campylobacter species isolated. Salmonella/Shigella ScreenFinal reportNoPike Community HospitalComment on above:Performed By: #### CXSTOOL #### [facility] [address] [place] [address] Dr. Timi PadronOSTRIDIUM DIFFICILE PCRon 02-03-2022 difficile Toxin Gene RUCHI NegativeNormalNegativeHolzer Medical Center – JacksonCommckenzie memorial hospital on above:Performed By: #### CDIFPOC #### [facility] [address] [place] [address] Dr. Timi Gupta. DIFF PCRon 01-14-2022. DIFFICILE PCRNegativeNormalNEGATIVEThe [facility] HospitalComment on above:Performed By: #### CALPOO #### [facility] [address] [address] [address] Capellan ChangEpatriciooscopy Reporton 56-03-2578Hklzafjnc ReportMR#: [id number] [facility] Pt. Name: Chioma Henao Surgery Date: 12/29/2021 Room #: Z0 Date of : 2000 PROCEDURE NOTE ATTENDING: Paula Huggins MD PROCEDURE: Colonoscopy with FMT. INDICATION FOR PROCEDURE: Recurrent C diff. TYPE OF ANESTHESIA: Conscious sedation, 6 mg of Versed, 150 mcg of fentanyl, and 25 mg of Benadryl. SQUARE DANCE CALLER PHYSICIAN: Darren Baig M.D. QUALITY OF THE [...] Baig MD Date Trans: 12/30/2021 03:17 A/mmo DN_JN:[id number] cc: Gabino Owen M.D. [address], [place] [address]NameiiHzpPremier Health SARS COV2 IDon 34-43-3697NYEU-CoV-2 (COVID-19) RNA RUCHI+probe Ql (Unsp spec)NegativeNormal NEGATIVEThe [facility]rbana HospitalComment on above:Result Comment: ID NOW COVID-19 [...] Compliance, or Certificate of Accreditation.Performed By: #### [id number] #### [facility] [address] [facility] [place] [address], [facility] URINE PREGNANCYon 13-48-5684Pbpd HCG ( test) Ql (U)NegativeNormalNEGATIVEThe [facility] HospitalComment on above:Result Comment: Performed in PACUPerformed By: #### [id number] #### [facility] [address] [facility] [place] [address], [facility] Surgery Office/Clinic Noteon 53-43-3754Btklxxt Surgery Office/Clinic NoteChief Complaint post operative follow [...] Use:., 06/21/2021 Family History Cancer: Father. Stroke: Mother.[facility]leness HospitalComment on above:Result Comment: Electronically Signed By: KALEB MACKEY, Ana Palmerbr\Date and Time Signed: 07/08/21 16:21 ESTPathology Noteon 86-12-6410Rrmzfmpij Note [id number]#1.00CD:[address] [place], [place] [address]Operative Reporton 08-72-8664Ejpqrkgyt Report [id number]#1.00CD:[address] [place], [place] [address]Lab Reportson 89-43-3925Gbc Reports [id number]#1.00CD:[address] [place], [place] [address]Consent for Procedure/Surgeryon 23-93-3805Seryfqc for Procedure/Surgery [id number]#1.00CD:[address] [place], [place] [address]Provider Letter [facility] 76-05-7204Qbtgluvt Letter [facility]ember 2020 Gabino Owen, [address] [place] [address] Re: CHIOMA HENAO Date of : 2000 Thank you for your referral of Chioma Henao who was seen on consultation on 06/21/2021 for daily nausea with abdominal cramping. An EGD is planned for further evaluation. I have enclosed my consultation note for your review. I will be happy to follow Chioma. Sincerely, Ana De La Cruz MD General SurgeryNoOhioHealth Mansfield HospitalAmbulatory Clinical Summaryon 54-50-9397Nhyvmrhrun Clinical Summary {[id number]-7q-9d-77-l4-9u-85-x6-9i-ab-fd-79-68}CD:[id number] Mansfield HospitalPhysician Referralon 23-97-0162Zvvperpan Referral [id number]#1.00CD:127NoOhioHealth Mansfield HospitalCOVID Quick Testingon 78-72-4579MkmymyFihtimnpQckut Collect.it Other S. pyogenes Ag Ql (Throat)on 05-05-2021. pyogenes Org specific cx Ql (Throat)NegativeNort Collect.it Other Ambulatory Clinical Summaryon 91-97-9504Rsgopeybwl Clinical Summary{bf-[id number]-5c-8o-pe-1a-1a-rn-e1-m8-0l-47-eb-d1-17}CD:[id number] Health PrebleGeneral Surgery Office/Clinic Noteon 01-04-2021 General Surgery Office/Clinic [...] Use:., 01/04/2021 Family History Cancer: Father. Stroke: Mother.[facility]Bleness HospitalComment on above:Result Comment: Electronically Signed By: KALEB MACKEY, Ana Lan\Date and Time Signed: 01/04/21 14:32 EDTPathology Noteon 73-00-0111Rfvxllcpl Note [id number]#1.00CD:[address] [place], [place] [address]Outside Colonoscopyon 29-43-4592Lfxnvfd Colonoscopy [id number]#1.00CD:[address] [place], [place] [address]Lab Reportson 90-73-2947Mvc Reports [id number]#1.00CD:[address] [place], [place] [address]Consent for Procedure/Surgeryon 36-43-3117Zulaogy for Procedure/Surgery [id number]#1.00CD:[address] [place], [place] [address]Provider Letter FTMCon 94-70-2389Rgtfaduf Letter [facility] Gabino Owen, [facility] [place] [address] Re: CHIOMA HENAO Date of : 2000 Thank you for your referral of Chioma Henao who was seen on consultation on December 07, 2020, for colonoscopy due to abdominal pain and diarrhea. A colonoscopy is planned. I have enclosed my consultationnotes for your review. I will be happy to follow Chioma should her symptoms persist. Sincerely, Ana De La Cruz MD General SurgeryOhioHealth O'Bleness HospitalAmbulatory Clinical Summaryon 33-44-5340Qreeuwijev Clinical Summary {[id number]-[id number]-iw-d5-05-6s-gb-0b-7c-0f-34}CD:[id number] Mansfield HospitalPatient Educationon 99-75-3601Pzxvnlr EducationPreventive Health Exercising to Stay Healthy To [...] Yard work, such as: ? 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 ? Raking and bagging leaves. ? [...] 08/11/2011 Document Revised: 06/21/2018 Document Reviewed: 05/30/2018 [employer] Patient Education ? 2020 [employer] Radiology Colonoscopy, Adult A colonoscopy is [...] if you have certain (more content not included)...[facility] Physician Referralon 11-47-9157Phamsfdng Referral [id number]#1.00CD:127NormalAvita Health System Galion HospitalNo Panel Informationon 64-24-8862Wpceyaejf Clinic Vital Signs Date TimeVital SignValuePerforming OeeljmmooDtlfmzcf77-54-4893 13:52-0400Body mkcdyq193.6 cmCorey Heike DO Work Phone: [facility] CenterRdrzcdzvqg25-10-3017 13:52-0400Body mass index (BMI) [Ratio]19.4 kg/v3Fqstn Heike DO Work Phone: [phone] [place], [place] [address]Dyzxggxwub07-92-8770 13:52-0400Body mryzlk08.26 kgCorey Heike DO Work Phone: [facility] CenterTgwehwczfs41-20-1290 13:52-0400Diastolic blood zyrsiaje51 mm[Hg]Jeremiah Heike DO Work Phone: [facility] CenterJendjwmoby99-27-4070 13:52-0400Systolic blood txblmifa476 mm[Hg]Jeremiah Heike DO Work Phone: [facility] CenterYumbqnqpni05-55-6413 09:59-0400Body .56 cm[facility]04-23-2025 09:59-0400Body mass index (BMI) [Ratio]19.2 kg/k1NbcnyaogvSelect Medical Specialty Hospital [facility]04-23-2025 09:59-0400Body afwyovldvkx27.3 [degF][facility]04-23-2025 09:59-0400Body .8 kgSelect [facility]04-23-2025 09:59-0400Diastolic blood ksltaust57 mm[Hg][facility]04-23-2025 09:59-0400 Heart rate78 /minSelect Medical Specialty Hospital - [facility]04-23-2025 09:59-1900NgU4% (BldA) [Mass fraction]98 %[facility]04-23-2025 09:59-0400 Systolic blood zvduxhon961 mm[Hg][facility]02-12-2025 11:00-0500Diastolic blood fgybjpjh16 mm[Hg]Dara Butler Jr., DO Work Phone: [facility]02-12-2025 11:00-0500Heart rate67 /min Dara Butler Jr., DO Work Phone: [facility]02-12-2025 11:00-0500Respiratory rate 18 /minDleticia Butler Jr., DO Work Phone: [facility]02-12-2025 11:00-4039DoH2% (BldA) [Mass fraction]100 %Dara Butler Jr., DO Work Phone: [facility]02-12-2025 11:00-0500Systolic blood yfpnirif804 mm[Hg]Dara Butler Jr., DO Work Phone: [facility]02-12-2025 10:13-0500Body npbvme634.6 cmDabean Butler Jr., DO Work Phone: [facility]02-12-2025 10:13-0500Body mass index (BMI) [Ratio]19.74 kg/f6WcnezDara Butler Jr., DO Work Phone: [facility]02-12-2025 10:13-0500Body temperature 98.4 [degF]Dara Butler Jr., DO Work Phone: [facility]02-12-2025 10:13-0500Body fuoplw70.16 kgDabean Butler Jr., DO Work Phone: [facility]12-24-2024 07:39-0500Body mass index (BMI) [Ratio]19.74 kg/i2NtrujpqjNae Ibarra MD Work Phone: [facility]12-24-2024 07:39-0500Body qvawly60.16 kgNae Ibarra MD Work Phone: [facility]12-24-2024 07:39-0500Diastolic blood xvzggpyr35 mm[Hg]Nae Ibarra MD Work Phone: [facility]12-24-2024 07:39-0500Heart rate80 /min Nae Ibarra MD Work Phone: [facility]12-24-2024 07:39-0500Systolic blood qqhvohpc83 mm[Hg]Nae Ibarra MD Work Phone: [facility]12-17-2024 14:18-0500Body yciybh907.56 cmSelect [facility]12-17-2024 14:18-0500Body mass index (BMI) [Ratio]19.9 kg/y7UoyfwsmbkSelect Medical Specialty [facility]12-17-2024 14:18-0500Body axsschpvjcr03.9 [degF][facility]12-17-2024 14:18-0500Body .61 kgSelect Medical Specialty [facility]12-17-2024 14:18-0500Diastolic blood bxhmtird32 mm[Hg][facility]12-17-2024 14:18-0500 Heart rate77 /minSelect Medical Specialty Hospital [facility]12-17-2024 14:18-1840DmY6% (BldA) [Mass fraction]98 %[facility]12-17-2024 14:18-0500 Systolic blood ogduvmvd408 mm[Hg][facility]12-12-2024 11:56-0500Body mass index (BMI) [Ratio]19.91 kg/b2Hzfha Heike DO Work Phone: [facility] CenterBwhkzspive60-18-9757 11:56-0500Body mydhux67.62 kgCorey Heike DO Work Phone: [facility] CenterHkkrmhzzxj78-21-4829 11:56-0500Diastolic blood jcnyiyac11 mm[Hg]Jeremiah Canoo DO Work Phone: [facility] CenterLyjhxvhthe75-28-4697 11:56-0500Systolic blood rpfpjycy224 mm[Hg]Jeremiah Canoo DO Work Phone: [facility] CenterHcclqssjis06-12-3346 10:38-0400Body .6 cmPaula Pretty MD Work Phone: [facility]10-09-2024 10:38-0400Body mass index (BMI) [Ratio]18.88 kg/r3DjnzpbukPaula Pretty MD Work Phone: [facility]10-09-2024 10:38-0400Body ftihqp44.9 kgPaula Pretty MD Work Phone: [facility]10-09-2024 10:38-0400Diastolic blood fpyqnhvs70 mm[Hg]Paula Pretty MD Work Phone: [facility]10-09-2024 10:38-0400Heart rate86 /min Paula Pretty MD Work Phone: [facility]10-09-2024 10:38-0400Respiratory rate 18 /minPaula Pretty MD Work Phone: [facility]10-09-2024 10:38-0400Systolic blood fmzuvgkq925 mm[Hg]Palua Pretty MD Work Phone: [facility]09-25-2024 10:51-0400Diastolic blood evpmvhti45 mm[Hg]Whitney Ambriz MD MPH Work Phone: [facility]09-25-2024 10:51-0400 Heart rate68 /Wolf Ambriz MD MPH Work Phone: [facility]09-25-2024 10:51-0400 Respiratory rate18 /Wolf Ambriz MD MPH Work Phone: [facility]09-25-2024 10:51-0400 SaO2% (BldA) [Mass fraction]100 %Whitney Ambriz MD MPH Work Phone: [facility]09-25-2024 10:51-0400 Systolic blood mm[Hg]Whitney Ambriz MD MPH Work Phone: [facility]09-25-2024 10:21-0400 Body obftldgidye86.2 [degF]Whitney Ambriz MD MPH Work Phone: [phone] [place], [place] 5828209-25-2024 08:23-0400 Body .6 cmLalbina Ambriz MD MPH Work Phone: [phone] [place], [place] 5828209-25-2024 08:23-0400 Body mass index (BMI) [Ratio]19.74 kg/b5FyvcuWhitney Ambriz MD MPH Work Phone: [phone]09-25-2024 08:23-0400 Body .16 kgWhitney Ambriz MD MPH Work Phone: [facility]09-04-2024 10:52-0400 Body .6 cmPaula Pretty MD Work Phone: [facility]09-04-2024 10:52-0400Body mass index (BMI) [Ratio]18.88 kg/i1DhnrbvrpPaula Pretty MD Work Phone: [facility]09-04-2024 10:52-0400Body .9 kgPaula Pretty MD Work Phone: [facility]09-04-2024 10:52-0400Diastolic blood tmddmesw49 mm[Hg]Paula Pretty MD Work Phone: [phone]09-04-2024 10:52-0400Heart rate81 /min Paula Pretty MD Work Phone: [facility]09-04-2024 10:52-0400Respiratory rate 16 /minPaula Pretty MD Work Phone: [address] [place] [address]-04-2024 10:52-0400Systolic blood wogvhmjd203 mm[Hg]Paula Pretty MD Work Phone: [facility]08-28-2024 13:20-0400Body .56 cmDO Ana Aedjarrod Work Phone: [phone]08-28-2024 13:20-0400 Body mass index (BMI) [Ratio]19.2 kg/m2DO Ana Bolton Work Phone: [phone]08-28-2024 13:20-0400 Body .8 kgDO Ana Bolton Work Phone: [phone]08-28-2024 13:20-0400 Diastolic blood bkfhfqof34 mm[Hg]DO Ana Bolton Work Phone: [phone]08-28-2024 13:20-0400 Heart rate78 /minDO Ana Bolton Work Phone: [phone] [place], [place] 3831508-28-2024 13:20-0400 SaO2% (BldA) [Mass fraction]99 %DO Ana Pachecojalenjarrod Work Phone: [phone])[phone] [place], [place] 3831508-28-2024 13:20-0400 Systolic blood jfxywoej07 mm[Hg]DO Ana Pachecojalenjarrod Work Phone: [phone])169-[address] [place], [place] 3831508-14-2024 14:15-0400 Body mass index (BMI) [Ratio]18.19 kg/p9YtsvjWhitney Ambriz MD MPH Work Phone: [facility]08-14-2024 14:15-0400 Body jwrqih51.08 Addison Ambriz MD MPH Work Phone: [facility]08-14-2024 14:15-0400 Diastolic blood fkuqddmy26 mm[Hg]Whitney Ambriz MD MPH Work Phone: [facility]08-14-2024 14:15-0400 Heart rate97 /Wolf Ambriz MD MPH Work Phone: [facility]08-14-2024 14:15-0400 Systolic blood qojlwmpk951 mm[Hg]Whitney Ambriz MD MPH Work Phone: [facility]08-06-2024 15:21-0400 Body ddkytd401.6 Neri Braden MD Work Phone: [phone]08-06-2024 15:21-0400Body mass index (BMI) [Ratio]19.38 kg/b7NqaihBola Braden MD Work Phone: [phone]08-06-2024 15:21-0400Body temperature 98.2 [degF]Bola Braden MD Work Phone: [phone]08-06-2024 15:21-0400Body yogkga83.26 kgBola Braden MD Work Phone: [phone]08-06-2024 15:21-0400Diastolic blood mm[Hg]Bola Braden MD Work Phone: [phone]08-06-2024 15:21-0400Heart rate65 /min Bola Braden MD Work Phone: [phone]08-06-2024 15:21-0400Systolic blood cqfqowfb998 mm[Hg]Bola Braden MD Work Phone: [phone]07-16-2024 14:42-0400Body jovvvu144.6 cmWkelly Merida MD Work Phone: [facility]07-16-2024 14:42-0400 Body mass index (BMI) [Ratio]19.14 kg/f6ObmozcDane Merida MD Work Phone: [facility]07-16-2024 14:42-0400 Body kmodya62.58 kgDane Merida MD Work Phone: [facility]07-16-2024 14:42-0400 Diastolic blood clboujne11 mm[Hg]Dane Merida MD Work Phone: [facility]07-16-2024 14:42-0400 Heart rate77 /Francesca Merida MD Work Phone: [facility]07-16-2024 14:42-0400 Respiratory rate18 /Francesca Merida MD Work Phone: [facility]07-16-2024 14:42-0400 Systolic blood bjrryztb351 mm[Hg]Dane Merida MD Work Phone: [facility]06-20-2024 09:24-0400 Body sopmcz777.6 cmMckenzie Shepherd 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 Work Phone: [facility]06-20-2024 09:24-0400Body mass index (BMI) [Ratio]19.53 kg/h2Imfvatd Shepherd 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 Work Phone: [facility]06-20-2024 09:24-0400Body .62 kgMckenzie Shepherd 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 Work Phone: [facility]06-20-2024 09:24-0400Diastolic blood zawuxfws12 mm[Hg]Mckenzie Shepherd 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 Work Phone: [facility]06-20-2024 09:24-0400Heart rate 73 /minMckenzie Shepherd 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 Work Phone: [facility]06-20-2024 09:24-0400Systolic blood enkpawxd849 mm[Hg]Mckenzie Mendozaoll 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 Work Phone: [facility]05-15-2024 13:45-0400Body mkbmoh053.6 cmAriella Mccoy MARKETING TEAM LEAD.LOGGING SUPERVISOR Work Phone: cL[facility] HospitalVfdpgu72-92-0791 13:45-0400Body mass index (BMI) [Ratio]19.22 kg/h4QyzkkyoAriella Mccoy MARKETING TEAM LEAD.LOGGING SUPERVISOR Work Phone: [place] Fjnsai66-63-0348 13:45-0400Body temperature 98.01 [degF]Ariella Mccoy MARKETING TEAM LEAD.LOGGING SUPERVISOR Work Phone: [facility] HospitalJsihjb39-79-3795 13:45-0400Body ylbkof36.8 kgAriella Mccoy MARKETING TEAM LEAD.LOGGING SUPERVISOR Work Phone: [facility] HospitalUiemwx25-86-4126 13:45-0400Diastolic blood prqgpovd03 mm[Hg]Ariella Mccoy MARKETING TEAM LEAD.LOGGING SUPERVISOR Work Phone: [facility] HospitalKgtaye76-34-6962 13:45-0400Heart rate90 /min Ariella Mccoy MARKETING TEAM LEAD.LOGGING SUPERVISOR Work Phone: BL[facility] HospitalGlrcgh41-33-7712 13:45-4401CzK3% (BldA) [Mass fraction]99 %Ariella Mccoy MARKETING TEAM LEAD.LOGGING SUPERVISOR Work Phone: XL[facility] HospitalQxdfxq34-46-8269 13:45-0400Systolic blood vxrmgcyi245 mm[Hg]Ariella Mccoy MARKETING TEAM LEAD.LOGGING SUPERVISOR Work Phone: [facility] HospitalIdiedh30-31-5979 11:15-0400Body wyvahf594.56 cmSelect [facility]05-09-2024 11:15-0400Body mass index (BMI) [Ratio]18.7 kg/f6HeqlefpvwSelect Medical Specialty [facility]05-09-2024 11:15-0400Body zucrmv43.58 kgSelect [facility] Special[facility]05-09-2024 11:15-0400Diastolic blood oefghtus09 mm[Hg][facility]05-09-2024 11:15-0400 Heart rate83 /[facility]05-09-2024 11:15-0400 Respiratory rate18 /[facility]05-09-2024 11:15-0400 SaO2% (BldA) [Mass fraction]98 %[facility]05-09-2024 11:15-0400Systolic blood oovcevex587 mm[Hg][facility] 11-15-2023 14:44-0400Body wknazk698.6 cmPacc 1 Other Phone: [facility]04-25-2024 14:44-0400Body mass index (BMI) [Ratio]20.06 kg/m2Pacc 1 Other Phone: [place] [address]-25-2024 14:44-0400Body temperature 97.11 [degF]Pacc 1 Other Phone: [phone] [address]-25-2024 14:44-0400Body kg Pacc 1 Other Phone: [phone] [address]-25-2024 14:44-0400Diastolic blood ohtzeoyh64 mm[Hg]Pacc 1 Other Phone: [phone] [address]-25-2024 14:44-0400Heart rate75 /minPacc 1 Other Phone: [phone] [address]-25-2024 14:44-0400Respiratory rate 18 /minPacc 1 Other Phone: [phone] [address]-25-2024 14:44-8332YcE0% (BldA) [Mass fraction]100 %Pacc 1 Other Phone: [phone] [address]-25-2024 14:44-0400Systolic blood mm[Hg]Pacc 1 Other Phone: [place] [address]-01-2024 14:44-0400Body xufhur501.6 cmAevan Rushing MD Work Phone: [facility]04-01-2024 14:44-0400Body sudztb49.62 kgSedrick Rushing MD Work Phone: [place] [address]-01-2024 14:44-0400Diastolic blood xtvcnqoy77 mm[Hg]Sedrick Rushing MD Work Phone: [place] [address]-01-2024 14:44-0400Heart rate40 /min Sedrick Rushing MD Work Phone: [place] [address]-01-2024 14:44-0400Systolic blood bvxyqxbp955 mm[Hg]Sedrick Rushing MD Work Phone: [facility]02-15-2024 14:00-0500Heart rate68 /min Isabelle Menon MD Work Phone: cLanc[facility] HospitalLzsymr74-69-2766 14:00-0500Respiratory rate 22 /minIsabelle Menon MD Work Phone: [phone] [place], [place] 0605702-15-2024 14:00-4152ZoD7% (BldA) [Mass fraction]100 %Isabelle Menon MD Work Phone: 1(203)047-[address] [place], [place] 0605702-15-2024 13:45-0500Diastolic blood mm[Hg]Isabelle Menon MD Work Phone: cL[facility] HospitalPcztmx76-01-2384 13:45-0500Systolic blood atdrrmtm690 mm[Hg]Isabelle Menon MD Work Phone: 1([phone])091-[address] [place], [place] 0605702-15-2024 13:27-0500Body temperature 97.2 [degF]Isabelle Menon MD Work Phone: [phone] [address] [place], [place] [address]605711-15-2023 11:42-0500Body nikwld61.26 kgIsabelle Menon MD Work Phone: cL[facility] HospitalXogpro93-26-0138 11:42-0500Diastolic blood quiyeyen98 mm[Hg]Isabelle Menon MD Work Phone: [phone] [place], [place] [address]11-15-2023 11:42-0500Heart rate87 /min Isabelle Menon MD Work Phone: cL[facility] HospitalYzkwiv06-80-5489 11:42-0500Systolic blood huzutoek346 mm[Hg]Isabelle Menon MD Work Phone: cL[facility] HospitalQdcqqx17-07-7286 11:30-0400Body ikrded050.56 cmAnalia Holliday Other [employer] Other 11-02-2023 11:30-0400Body mass index (BMI) [Ratio] 20.48 kg/f8QthaanssAnalia Holliday Other [employer] Other 11-02-2023 11:30-0400Body oizuwy35.11 kgAnalia Holliday Other [employer] Other 11-02-2023 11:30-0400Diastolic blood jpnetytq60 mm[Hg] Analia Holliday Other [employer] Other 11-02-2023 11:30-0400Respiratory rate18 /minAnalia Holliday Other [employer] Other 11-02-2023 11:30-6427JnK9% (BldA) [Mass fraction]99 % Analia Holliday Other [employer] Other 11-02-2023 11:30-0400Systolic blood khjyjuzu660 mm[Hg] Analia Holliday Other [employer] Other 10-31-2023 11:10-0400Body tpokom181.6 cmDavid Hykes Jr., DO Work Phone: [facility]10-31-2023 11:10-0400Body .3 kgDavid Hykes Jr., DO Work Phone: [facility]07-18-2023 10:10-0400Body wvuvnl906.6 cmDavid Hykes Jr., DO Work Phone: [facility]07-18-2023 10:10-0400Body .26 kgDavid Hykes Jr., DO Work Phone: [facility]07-18-2023 10:10-0400Diastolic blood ptjgfulj16 mm[Hg]Dara Aleksadi Mak, DO Work Phone: [facility]07-18-2023 10:10-0400Heart rate67 /min Dara Aleksadi Mak, DO Work Phone: [facility]07-18-2023 10:10-7668XqR1% (BldA) [Mass fraction]100 %Dara Butler , DO Work Phone: [facility]07-18-2023 10:10-0400Systolic blood mm[Hg]Dara Butler , DO Work Phone: [facility]05-03-2023 10:00-0400Body owunjp316.56 cmRdariana Reyez Other [employer] Other 05-03-2023 10:00-0400Body mass index (BMI) [Ratio] 19.91 kg/m2Rygurmeet Scovanner Other [employer] Other 05-03-2023 10:00-0400Body .62 kgRygurmeet Scovanner Other [employer] Other 05-03-2023 10:00-0400Diastolic blood lxivahro31 mm[Hg] Silvano Scovanner Other [employer] Other 05-03-2023 10:00-0400Systolic blood aftaqrdw796 mm[Hg] Silvano Scovanner Other [employer] Other 10-06-2022 14:30-0400Body yyuffc266.56 Varun Parikh Other [employer] Other 10-06-2022 14:30-0400Body mass index (BMI) [Ratio] 19.74 kg/k3CzphdpwJaya Parikh Other [employer] Other 10-06-2022 14:30-0400Body eakziv61.16 kgJaya Parikh Other [employer] Other 08-24-2022 15:29-0400Body .6 Komal Diallo MD Work Phone: [phone]08-24-2022 15:29-0400Body mass index (BMI) [Ratio]19.6 kg/m2Irena Diallo MD Work Phone: [phone]08-24-2022 15:29-0400Body swyuru86.8 kgIrena Diallo MD Work Phone: [phone]08-24-2022 15:29-0400 Diastolic blood rokneujn93 mm[Hg]Irena Diallo MD Work Phone: [phone]08-24-2022 15:29-0400Heart rate74 /minIrena Diallo MD Work Phone: [phone]08-24-2022 15:29-0400 Respiratory rate18 /minIrena Diallo MD Work Phone: [phone]08-24-2022 15:29-1293MuP4% (BldA) [Mass fraction]99 %Irena Diallo MD Work Phone: [phone]08-24-2022 15:29-0400Systolic blood whfiwpxv946 mm[Hg]rIena Diallo MD Work Phone: [phone]03-08-2022 12:00-0500Body bllcpy155.56 cmCmaxim Parikh Other [facility] Other 03-08-2022 12:00-0500Body mass index (BMI) [Ratio] 19.74 kg/b7YqqusnhJaya Parikh Other [employer] Other 03-08-2022 12:00-0500Body qxlaat28.16 kgJaya Parikh Other [employer] Other 03-08-2022 12:00-0500Diastolic blood wjiydljm73 mm[Hg] Jaya Parikh Other [employer] Other 03-08-2022 12:00-0500Systolic blood jmuuxxvi082 mm[Hg] Jaya Parikh Other [employer] Other 10-14-2021 10:30-0400Body .56 cmSjesus Negro Other [employer] Other 10-14-2021 10:30-0400Body mass index (BMI) [Ratio]20.6 kg/x1WwwmwlzfcArlene Negro Other [employer] Other 10-14-2021 10:30-0400Body afeafhpuytk92.1 [degF] Arlene Negro Other [employer] Other 10-14-2021 10:30-0400Body .43 kgStkelly Negro Other [employer] Other 10-14-2021 10:30-0400Respiratory rate18 /minStepjosue Negro Other [employer] Other 10-14-2021 10:30-4641GmP9% (BldA) [Mass fraction]97 % Arlene Sruthi Other [facility] Other Encounters Encounter DateEncounter TypeCare ProviderFacilityStart: 04-18-2025 End: 31-22-1743Lzamasnmu Result EncounterCorey Heike DO Work Phone: noms External Department UnsolicitedStart: 04-18-2025 End: 09-34-5784Ngiobkdol Result EncounterCorey Heike DO Work Phone: noms External Department UnsolicitedStart: 03-24-2025 End: 74-57-9709Ogmlex flowsheetCorey Heike DO Work Phone: noms Sg OBGYNStart: 03-24-2025 End: 45-50-9646Vrdndf flowsheetCorey Heike DO Work Phone: noms Branch OBGYNStart: 03-24-2025 End: 60-18-3213Vzsivb outpatient visit 15 minutesCorey Heike DO Work Phone: noms Branch OBGYNComment on above:Encounter for infertility; PCOS (polycystic ovarian syndrome); Abnormal uterine bleeding (AUB)Start: 03-24-2025 End: 75-04-4229yedugzbxvxKXRIL FAZIONot AvailableStart: 11-12-2024 End: 43-50-5225qbjuyditqdRdpfazgjvLakeHealth [facility] Work Phone: Start: 11-12-2024 End: 02-36-8508Uqjykfs encounter procedureFirsentara [facility] Work Phone: Start: 47-02-0894Mnw-patient / [facility] Work Phone: Start: 74-93-4796Qcq-patient / Non-visitUn[facility] [employer] Work Phone: Start: 10-24-2024 End: 47-81-5697ehchyeuvqdJvuelnojyMercy Health [facility] Work Phone: Start: 10-24-2024 End: 73-42-9192Ehknlza encounter procedureUnc Health [facility] Work Phone: Start: 09-05-2024 End: 11-13-4741Hcexvn-up encounterDabean Butler DO Work Phone: GastroenterologyStart: 09-03-2024 End: 92-60-8847freqkezxzwSTMWB L HYKES JRFacility:[facility] Start: 09-03-2024 End: 06-29-1658Zeshojgsro hospital visit by physicianDara Butler DO Work Phone: [facility] SheffieldComment on above:Generalized abdominal pain [R10.84]Start: 08-21-2024 End: 51-09-1405qnvxgjgaclTvocqbkk Abraham MD Work Phone: Pain ManagementComment on above:Cancel procedureStart: 69-96-8683erlyejyryiJNWFCTEW [facility] Limatart: 07-24-2024 End: 45-50-5894Czvaiviv ReferredAnalia Dennis APRN Work Phone: [facility] [place] Work Phone: Start: 07-24-2024 End: 85-48-8208cruirndxocKokeesil RohrbacherFacility:[facility] Centertart: 07-24-2024 End: 46-94-5777Gjsyqtg encounter procedureUn[facility] Health [facility] GroupSelect [facility] Work Phone: Start: 07-15-2024 End: 31-64-1927Xzoviousa encounterNae Ibarra MD Work Phone: RheumatologyComment on above:ResultsStart: 07-15-2024 Non-patient / Non-visitUn[facility] Co Work Phone: Start: 07-15-2024 End: 34-16-3968dajbyimlmuQNVWUPVJ TSAIFacility:[facility] HospitalStart: 07-15-2024 End: 52-23-3673Nvuvays encounter procedureNae Ibarra MD Work Phone: RheumatologyComment on above:Chronic fatigue (Primary Dx); Vitamin B12 deficiency; Vitamin D deficiency; Generalized abdominal pain; Urticaria; Photosensitivity; Chronic bilateral low back pain without sciatica; Cervicalgia; Upper back pain; Long-term use of high-risk medicationStart: 73-18-7743Mzr-patient / Non-visit [facility] Work Phone: Start: 56-03-5575Xag-patient / Non-visitUn[facility] Co Work Phone: Start: 02-27-6146Rza-patient / Non-visit[facility]ician [facility] Professional Co Work Phone: Start: 07-08-2024 End: 61-20-1226Mwcpxpx encounter procedureUnc Health [facility] GroupSelect [facility] Work Phone: Start: 07-08-2024 End: 13-92-1671Pkscxewlf Result EncounterCorey Heike DO Work Phone: noms External Department UnsolicitedStart: 07-08-2024 End: 07-47-4591Siwrizwah Result EncounterCorey Heike DO Work Phone: noms External Department UnsolicitedStart: 07-03-2024 End: 04-86-5456Zgmuvf flowsheetCorey Heike DO Work Phone: noms BCP OBStart: 07-03-2024 End: 77-31-7068Iahrbk flowsheetCorey Heike DO Work Phone: noms BCP OBStart: 07-03-2024 End: 72-05-1328Vnusdtvcy encounterSquinn Thompson MD Work Phone: Pain ManagementComment on above:AppointmentStart: 07-03-2024 End: 95-61-8475Qxztjb outpatient visit 15 minutesCorey Heike DO Work Phone: noms BCP OBComment on above:Follow-up visit after miscarriageStart: 07-03-2024 End: 50-42-2988ezsauxpvwrVFCPM FAZIONot AvailableStart: 07-01-2024 End: 72-35-3364Xfnupwc encounter procedureElif Rich MD Work Phone: noms SWS DERMComment on above:Neoplasm of unspecified behavior of bone, soft tissue, and skin (Primary Dx)Start: 07-01-2024 End: 90-86-5402Dtrfcj flowsCarline Rich MD Work Phone: noms SWS DERMStart: 07-01-2024 End: 71-85-2263Fazacl Becca Rich MD Work Phone: noms [facility] DERMStart: 07-01-2024 End: 78-31-0703zzdhobduscUNCYA A PETITTINot AvailableStart: 53-31-7696Lem- patient / Non-visitUn[facility] GroupEver[facility] Professional Co Work Phone: Start: 88-95-1041Skm-patient / Non-visitFirelands [facility] Work Phone: Start: 65-86-4468Njr-patient / Non-visitUn[facility] GroupEvergreen[facility] Professional Co Work Phone: Start: 06-23-2024 End: 52-94-5246Kxbypwmps encounterTho Huffman MD Work Phone: Internal MedicineComment on above:AppointmentStart: 05-14-2024 End: 66-45-6590Xibjidnjl encounterTho Huffman MD Work Phone: Ambulatory SurgeryComment on above:Schedule Injection Start: 04-30-2024 End: 64-40-2208xwjmsctfkhJNTPRPDA M KAPLEFacility:[facility] Start: 04-30-2024 End: 03-44-0932Gmwuaju encounter procedurePaula Pretty MD Work Phone: pain ManagementComment on above:Right sided abdominal pain (Primary Dx); Neuralgia and neuritis; Celiac artery compression syndrome (HCC)Start: 04-24-2024 End: 36-69-0931Yqwqcmfbi encounterIsabelle Menon MD Work Phone: GastroenterologyComment on above:Appointment (No need for OV with Dr. Menon)Start: 04-17-2024 End: 51-30-2951Sjmufzpipb hospital visit by physicianKeshawn External FilmEF RAD EXTERNAL FILM VIRTUALComment on above:ArrivedStart: 04-16-2024 End: 91-51-7159Nnavlivluh hospital visit by Ranjit Ambriz MD MPH Work Phone: [facility] CenterComment on above:Median arcuate ligament syndrome (CMS-HCC)Median arcuate ligament syndromeStart: 03-26-2024 End: 54-16-1318Mkmfuga encounter procedurePaula Pretty MD Work Phone: pain ManagementComment on above:APPOINTMENT CANCELLED (Primary Dx)Start: 03-26-2024 End: 31-06-8932jzochsyfruPICTQAOK M KAPLEFacility:[facility] Start: 48-57-8370Gsfegte encounter statusOhioHealth Nelsonville Health Centertart: 03-19-2024 End: 97-72-3490lubsttzbzsNU Ana Bolton Work Phone: [facility] Work Phone: Start: 03-19-2024 End: 16-21-4966Khpgnlw encounter procedureDO Ana Bolton Work Phone: [facility] GroupSelect [facility] Work Phone: Start: 03-13-2024 End: 06-90-0075gveiqggckuLENZRTRW M KAPLEFacility:[facility] Start: 03-12-2024 End: 15-96-0530scbveanhvfQljyv L Luke ., DO Work Phone: GastroenterologyStart: 03-12-2024 End: 43-52-7957Qruqqe-up encounterDadeondreadela Ilene Butler DO Work Phone: GastroenterologyComment on above:Follow UpStart: 03-05-2024 End: 12-32-4602Faasjz outpatient new 60 minutesWhitney Ambriz MD MPH Work Phone: uh [facility] Medical CenterComment on above: Epigastric pain (Primary Dx); Median arcuate ligament syndrome (CMS-HCC); Difficulty breathingStart: 02-26-2024 End: 93-12-8019Cjnwaan encounter Joceline Braden MD Work Phone: GastroenterologyComment on above:Epigastric pain (Primary Dx)Start: 02-26-2024 End: 13-10-7746rjgzyvdcwmJJKLB K STEVENSFacility:[facility] HospitalStart: 42-77-4178gapwohdtchLXIVX L HYKESFacility:[facility] HospitalStart: 02-11-2024 End: 43-90-7565Tthpoayoxe hospital visit by physicianLavonne/Dillan 1 [facility] (I-Stat) Work Phone: RadiologyComment on above:Upper abdominal pain [R10.10]Start: 02-05-2024 End: 45-57-8186Bbdnsf outpatient gonzález 60 minutesDane Merida MD Work Phone: uh [facility] [place] Physician PavilionComment on above:Median arcuate ligament syndrome (CMS-HCC) (Primary Dx)Start: 38-79-6567atorqhxrhetawanda BUTLERFacility:[facility] HospitalStart: 01-30-2024 End: 64-08-4526Qkiixzwobx hospital visit by physicianDaryl Imaging [facility] 2 Work Phone: RADOKLAHOMA SPINE [facility] – OKLAHOMA CITY HOSPComment on above:Upper abdominal pain [R10.10]Start: 62-87-9747Bermhtyza encounterGeorge [facility] RADIO MOLE [facility]OSPComment on above:Radiology NMStart: 09-85-9768kcysaqlsdttawanda Menon MD Work Phone: GastroenterologyComment on above:EUSStart: 01-10-2024 End: 07-76-4345Wazykt OnlyNot In System Ref ProvProMedica Physicians General SurgeryStart: 01-10-2024 End: 09-31-5768Pipafp follow up visit related to original Melinda Shepherd 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 Work Phone: [facility] Physicians General SurgeryComment on above: Status post laparoscopic appendectomy (Primary Dx)Start: 01-01-2024 End: 63-01-4026iyxmapooqoJwnyjel E [facility] Work Phone: Start: 01-01-2024 End: 31-16-2186Xpyazgxe ReferredDO Ana Bolton Work Phone: [facility]-LAB Path Spec Branch HospStart: 12-28-2023 End: 08-15-3889ttogumusejKNUEG L HYADI JRFacility:[facility] Start: 12-28-2023 End: 89-98-0352Rcpsctx encounter procedureDavid L Hykes DO Work Phone: GastroenterologyComment on above:Upper abdominal pain (Primary Dx); Dyspepsia and disorder of function of stomach; DyspepsiaStart: 12-27-2023 End: 76-09-7231oricqolqodGSAMP L HYKES JRFacility:[facility] Start: 00-19-3267Hxg-patient / Non-visitDO Ana Bolton Work Phone: Counts Include [facility] Hospitalzamzam Physician GroupEvergreenhealth Medical Center Professional Co Work Phone: Start: 09-27-2366ychjafovtvVnpra L Hykes DO Work Phone: GastroenterologyComment on above:PainStart: 12-13-2023 RefillDavid L Hykes DO Work Phone: FaAscension St Mary's HospitalComment on above: Refill RequestStart: 12-05-2023 End: 70-06-4684osalrsevvfJRGZBUK LLOSASHAFacility:[facility] HospitalStart: 12-05-2023 End: 45-72-1698Cnqyfup encounter procedureAriella Jonesyd MARKETING TEAM LEAD.LOGGING SUPERVISOR Work Phone: General SurgeryComment on above:S/P gastrointestinal surgery, follow-up exam (Primary Dx); S/P laparoscopic cholecystectomyStart: 11-29-2023 End: 44-81-3057jcycjhquneEwjttyddrMercy Health [facility] Work Phone: Start: 11-29-2023 End: 89-43-0467Dansndn encounter procedureUnc Health Rock[facility] Physician GroupKaiser [facility] Hospital Work Phone: Start: 11-21-2023 End: 52-97-8779znjhpbvrumKPPXZCJX M KAPLEFacility:[facility] HospitalStart: 58-29-5479Svo-patient / Non-visitUnc Health [facility] Professional Co Work Phone: Start: 11-15-2023 End: 56-22-2791Npthmwvkg to establishmentPacc [address] Other Phone: Pre AnesthesiaStart: 11-15-2023 End: 55-60-5769Nimvwik encounter procedurePacc [address] Other Phone: Pre AnesthesiaComment on above:Pre-op examination (Primary Dx); Palpitations; Organic anxiety syndromeStart: 11-15-2023 End: 74-24-2781Pagqevbhjdiuh examination donePacc [address] Other Phone: [facility] Work Phone: Start: 11-15-2023 End: 12-79-5042gypjxfrxanSHOZFMNKang Mansfieldcility:[facility] Hospitaltart: 67-15-9040Hmhsdyvvl for other preprocedural examinationMiddlesex Hospital Start: 85-07-3456Spdvlxkpv encounterBrianna M Armbrecht PA-C Work Phone: Pre AnesthesiaComment on above:Pre-Op ExamStart: 11-07-2023 End: 35-08-3637wuxkzybyzsKGJNJZFN M KAPLEFacility:[facility] Start: 75-47-2673Dogfoaiuy encounterSedrick Rushing MD Work Phone: CardiologyComment on above:Patient Question (PVCs and Frequent ED visits. )Start: 96-56-7457Gvajkkaqp encounterSedrick Rushing MD Work Phone: CardiologyComment on above:Palpitations; ED pt update Start: 20-67-3184Jcpddffqf encounterSeema Davis MD Work Phone: General SurgeryComment on above:Cardiac Clearance Start: 10-22-2023 End: 95-68-1808wggkbhndycFTYSBO C SMITHFacility:[facility] HospitalStart: 10-22-2023 End: 26-83-8011Qbrjuol encounter procedureSedrick Rushing MD Work Phone: CardiologyComment on above:Palpitations (Primary Dx); Other supraventricular tachycardia (HCC)Start: 10-19-2023 End: 24-32-4985cfyuienxqnWOUZHQ C SMITHFacility:[facility] HospitalStart: 02-13-2406Odmyfsopv encounterIsabelle Menon MD Work Phone: GastroenterologyComment on above:Patient UpdateStart: 69-56-4316Sfxonllta encounterIsabelle Menon MD Work Phone: FV Provider AdultStart: 83-93-6717hbfnickomoYRLYBIOK M KAPLEFacility:[facility] HospitalStart: 09-06-2023 End: 11-88-6126Ceygwedkct hospital visit by physicianIsabelle Menon MD Work Phone: [facility] - ENDOComment on above: Chronic recurrent pancreatitis (HCC) [K86.1]Start: 17-63-7672Xqhjasudi encounter Large [employer]ops Procedure 15RadiologyComment on above:ScansStart: 06-11-2023 ambulatoryIsabelle Menon MD Work Phone: GastroenterologyComment on above:EUSStart: 06-06-2023 End: 27-87-8149Yoesjhv encounter procedureIsabelle Menon MD Work Phone: GastroenterologyComment on above:RUQ pain (Primary Dx); History of pancreatitis; Nausea; Diarrhea, unspecified type; History of Clostridium difficile infectionStart: 06-01-2023 End: 80-56-2302xbdeyonxzqEdofgmxh Kaple Other [facility] [employer] Other Start: 55-19-4158Pakmddert encounterAnalia Ye Primary CareStart: 05-30-2023 End: 63-98-6586vdclduozkeWLK Jennifer Kaple Work Phone: [facility] Work Phone: Start: 05-30-2023 End: 73-26-4798Nbecxfi encounter procedureDNClaudette Holliday Work Phone: [facility]-Lab [facility] Centertart: 05-24-2023 End: 13-60-4888gjnsdmaavhJmlsvvhy Kaple Other PPImid [facility] Collect[employer] Other Start: 52-17-2403Jiviimofg for general adult medical examination without abnormal findingsAnalia PedrazaG [facility] [place] Start: 73-51-7095Wkygjdy preventive medicine new pt age 18-39yrsAnalia ELIAS [facility] Medicine [facility] HospitalyStart: 05-22-2023 End: 55-93-9611Fqhegdq encounter procedureDabean Butler DO Work Phone: GastgroenterologyComment on above:Chronic pancreatitis, unspecified pancreatitis type (HCC) (Primary Dx); Generalized abdominal pain; Irritable bowel syndrome with diarrhea; History of Clostridioides difficile colitisStart: 05-16-2023 End: 05-15-2235zykilafaldLwhcwtdo Provider Other [employer] Other Start: 71-99-3403Arkuzwaeo encounterOrdering Provider [facility] Medicine [place]kyStart: 57-09-5103Jhipjhsbv encounterDavid L Hykes DO Work Phone: GastroenterologyComment on above:ResultsStart: 44-13-7188Ydilzzauj encounterDavid L Hykes DO Work Phone: GastroenterologyComment on above:ResultsStart: 66-64-5605gbnfjjchgwFSULU L HYKESFacility:[facility] Hospitaltart: 04-13-2023 End: 44-27-0455Pfysmjtlzn hospital visit by physicianEj Cerrato (I-Stat/1.5t) Work Phone: RadiologyComment on above:Chronic recurrent pancreatitis (HCC) [K86.1]Start: 18-70-4081Ygwinoowv encounterMarie Moise ([place]) GeorgeRadiologyComment on above:APPT REMINDER (APPT REMINDER CALL, LEFT MESSAGE REGARDING DIRECTIONS TO OFFICE AND # IN NEED TO CANCEL)Start: 03-27-2023 End: 18-55-8843qpsoqxjxupNlbi Scovanner Other [employer] Other Start: 39-81-5035Kboqmeylu encounterRyan ScovannerFPG GastroenterologyStart: 03-23-2023 End: 21-78-8051jhfdozhqprWwxp [employer] Other [employer] Other Start: 78-04-8891Subebokzx encounterRyan ScovannerFPG GastroenterologyComment on above:ResultsStart: 03-22-2023 End: 54-43-1121fowqxxiirjHqlc [employer]ovanner Other [employer] Other Start: 24-10-4808Kabmhiqiz encounterNae Ibarra MD Work Phone: RheumatologyComment on above:ResultsStart: 03-21-2023 Telephone encounterDavid L Hykes DO Work Phone: GastroenterologyComment on above:ResultsStart: 03-20-2023 End: 75-44-3540zegkizeqndZiyf [employer]anner Other [employer] Other Start: 59-27-6234Xfgxziiyh encounterRyan ScrossynerFPG GastroenterologyStart: 38-51-3596leltudcdbfGbdgd L Hykes DO Work Phone: GastgroenterologyComment on above:PancreasStart: 71-68-2076bonarfkrsxIQDMF L HYKESFacility:[facility] HospitalStart: 02-06-2023 End: 31-17-8363Glaiiek encounter procedureDavid L Hykes DO Work Phone: GastgroenterologyComment on above:Chronic pancreatitis, unspecified pancreatitis type (HCC) (Primary Dx); Generalized abdominal pain; Intestinal malabsorption, unspecified typeStart: 39-72-7865ohtnbflyiuJxmkwkmxstl AbdelazizFacility:[facility] Centertart: 19-47-1017wvrfepadoy Nae Ibarra MD Work Phone: RheumatologyComment on above:updateStart: 12-01-2022 End: 80-02-4484oycbgmjnbsFL DOCTOR MISCFacility:R6Zgoel: 11-22-2022 End: 35-34-7067kodnvcdngpBarj [employer]ovanner Other [employer] Other Start: 13-01-3881Fhcnww outpatient new 30 minutesRyan ScovannerFPG GastroenterologyStart: 11-08-2022 End: 45-96-2236sgnwenymnsWsvmume Ditty Other [facility] [employer] Other Start: 51-36-7292Idylprytj encounterCameron DittyFPG GastroenterologyStart: 11-04-2022 End: 44-11-5727jtpqtrdohzTUJKTGK DITTYFacility:S2Yfqbt: 11-03-2022 End: 04-84-2736fljvrxuethMO DOCTOR MISCFacility:O9Zkrty: 10-31-2022 End: 30-22-0759fvxcvgyvjjUO DOCTOR MISCFacility:Z4Zmzgh: 10-23-2022 End: 31-68-5012nuunyusihiWK DOCTOR MISCFacility:F2Zqdrd: 10-20-2022 End: 27-73-7952ezzeiqlnhpNG DOCTOR MISCFacility:G5Juvnr: 10-19-2022 End: 41-27-6840nflzdolqojLR EDWARD HEMEYER .Facility:I3Myype: 10-18-2022 End: 31-61-5377tbauxgoxvtHI EDWARD HEMEYER .Facility:J7Msrsx: 10-08-2022 End: 73-08-0155irtcgrzsjwFD EDWARD HEMEYER .Facility:Z4Vvwft: 10-05-2022 End: 82-63-1438xilhtznjkuZT EDWARD HEMEYER .Facility:G7Ifcct: 10-02-2022 End: 01-89-5865dtdfqmzhukKA EDWARD HEMEYER .Facility:J2Owocn: 09-28-2022 End: 95-53-5512lqyzxxlndvAX DOCTOR MISCFacility:H9Leonn: 09-26-2022 End: 37-09-3815eikcuyfnpxXC EDWARD HEMEYER .Facility:K1Cgnym: 09-22-2022 End: 34-78-8514wpevtzmnpvEL EDWARD HEMEYER .Facility:S3Ogshz: 09-12-2022 End: 16-57-3185wyprvswactXH DOCTOR MISCFacility:R3Ndaqi: 08-30-2022 End: 65-98-7020ncxxbvgxwbSP DOCTOR MISCFacility:Z6Rbcga: 08-24-2022 End: 46-06-7912xamuohzupoRX EDWARD HEMEYER .Facility:E0Xajwd: 08-22-2022 End: 17-12-7431zkohuxvhoaDS EDWARD HEMEYER .Facility:Y6Qabvm: 08-22-2022 End: 82-26-4992pyxgmdgqakBP EDWARD HEMEYER .Facility:T4Emquh: 08-21-2022 End: 58-40-4924tdigpynvqhMM EDWARD HEMEYER .Facility:Z1Iulzv: 08-14-2022 End: 02-95-0889exrunnguklYZ JEREMIAH HEIKE .Facility:W3Hnbvc: 07-28-2022 End: 76-35-2197nlglqoxqprOtseslk Ditty Other [employer] Other Start: 84-66-7238Uougcfzsa encounterCameron DittyFPG GastroenterologyStart: 07-27-2022 End: 63-31-2694gtbtbdeqgyGN EDWARD HEMEYER .Facility:S6Enmlb: 07-13-2022 End: 86-77-1999xmfgmcshzeBC EDWARD HEMEYER .Facility:P6Zftlj: 05-11-2022 End: 16-79-6402kpnngfqcxkQJ DOCTOR MISCFacility:H3Trrsq: 05-04-2022 End: 21-01-5474etqarsixbnBQ DOCTOR MISCFacility:Y8Vxxjj: 05-01-2022 End: 85-84-7667hwekfgqknnUB DOCTOR MISCFacility:P4Xuygt: 04-27-2022 End: 22-22-3734pntzytbnztPgxxzso Ditty Other [employer] Other Start: 55-04-0638Oabapce encounter procedureCameron DittyFPG GastroenterologyStart: 04-17-2022 End: 42-25-8592npmimvuvdkLP EDWARD HEMEYER .Facility:O6Zikzs: 03-17-2022 End: 02-26-7651livahoxexmIQ DOCTOR MISCFacility:Z1Erofc: 36-33-4599fnsoitijrlSJT PETROVAFacility:[facility]ENTERtart: 03-15-2022 End: 95-60-6472[place] [address] My Diallo MD Work Phone: General and Gastrointestinal Surgery Outpatient Care [facility] on above:Diarrhea, unspecified type (Primary Dx)Start: 02-25-2022 End: 71-40-1220yzovgqjmjiXBWRVLE HOYFacility:P4Eoxvx: 02-01-2022 End: 99-91-5023mpaefcsoztXA DOCTOR MISCFacility:S5Dllwi: 01-19-2022 End: 36-87-7631fqkdxtkbcmUklflfk Ditty Other [employer] Other Start: 47-55-8114Ahlowwwoz encounterCameron DittyFPG GastroenterologyStart: 01-14-2022 End: 13-34-2911zpsqjzlzvmBOEAVFR HOYFacility:Q6Nrojn: 51-67-7497crswfstjiw REFERRED SELFFacility:[facility]WELLtart: 10-27-2021 End: 29-20-0111jnsomejcvyAyzdluy Ditty Other [employer] Other Start: 92-34-7104Eiykcopww encounterCameron DittyFPG GastroenterologyStart: 10-17-2021 End: 94-90-9696ttydcsjvnoCmewsww Ditty Other [employer] Other Start: 10-95-9196Quofsdyvb encounterCameron DittyFPG GastroenterologyStart: 87-25-8121wwhdtnfpfsHDQ PETROVAFacility:[facility]ENTERtart: 10-06-2021 End: 81-30-9400sfhrwsolfdWfyemju Ditty Other [employer] Other Start: 92-65-4264Xiphqujyr encounterCameron DittyFPG GastroenterologyStart: 09-30-2021 End: 73-71-0194ugbhoowcjeEqszfdi Ditty Other nort [employer] Other Start: 93-28-6244Uqemknbxt encounterCamerojovana ParikhFPG GastroenterologyStart: 09-27-2021 End: 80-08-6847akdgpysdrzKvypvui Bretty Other nort [employer] Other Start: 09-62-4124WQUV visit new patientCameron Kati FPG GastroenterologyStart: 79-23-2864Ophqah outpatient visit 15 minutesStephanie SruthiFPG Urgent Care ClydeStart: 12-02-2020 End: 57-77-0666Izahtlfbec hospital visit by physicianCt [facility] Radiology Ct ScanComment on above:Family history of ischemic heart disease and other diseases of the circulatory system [Z82.49] Procedures DateProcedureProcedure DetailPerforming ClinicianStart: 41-34-6459VPX FOLLICLE STIMULATING HORMONECorey Heike DO Work Phone: Start: 62-09-2854ZNB LUTEINIZING HORMONECorey Heike DO Work Phone: Start: 20-92-0351QMP THYROXINE (T4) FREECorey Heike DO Work Phone: Start: 73-98-0074GUQ HEMOGLOBIN K3MIjkgm Heike DO Work Phone: Start: 04-85-8243Pwryfbacvcg flx dx w/collj spec when pfrmdDavid L Hykes DO Work Phone: Start: 90-10-0454BCN PREG QUANT HCGCorey Heike DO Work Phone: Start: 48-91-2260LOOE / NAIL BIOPSYEmlisset Rich MD Work Phone: Start: 04-17-2024 End: 56-97-5924Rtttr Interpretation of outside studyCape Fear Valley [facility] Hospital Radiology Contrast ProviderStart: 66-30-6873Iinexpldqnxqwwjyxdxvlgipch transoral diagnosticWhitney Ambriz MD MPH Work Phone: Start: 26-99-3213Gnmki iv surg pathology gross&microscopic examWhitney Ambriz MD MPH Work Phone: Start: 04-21-3440Etiya test visual color cmprsn Lauri Batista MD Work Phone: Start: 98-21-2921XARWO OXIMETRY, Rashid Batista MD Work Phone: [phone]: 16-19-5602RIIRH OXIMETRY, Irwin Batista MD Work Phone: [phone]: 37-86-7947JJKAS MARK-TATIANA CONTAINER PERFORMABLEDadeondreadela Ilene Butler DO Work Phone: Start: 22-79-5640GJJBI ECOFIX CONTAINER PERFORMABLE Dara Butler DO Work Phone: [phone]: 10-23-2123Tfi agent det nucleic acid clostridium amp probeDavid Ilene Butler DO Work Phone: [phone]: 38-18-2560TVE EXTRA TUBESDavid Ilene Butler DO Work Phone: [phone]: 24-35-7813GB UPPER GI SINGLE CONTRASTDadeondred Ilene Butler DO Work Phone: Start: 58-34-4402Tctpaga emptying imaging studyDadeondreadela Ilene Butler DO Work Phone: [phone]: 35-57-6959Tngfs i surg pathology gross examination onlyNot In System Ref ProvStart: 43-65-8976Duzrufhtyfg rig transoral hypopharynx crv Nicole Menon MD Work Phone: start: 21-74-1346Obs abdomen w/o & w/contrast material Dara Ilene Finkadi DO Work Phone: Start: 92-51-1821Eb angiography head w/contrast/noncontrastBarbronit Naqvi DO Work Phone: Start: 84-68-8859Ao angiography neck w/contrast/noncontrastBarbara Donya DO Work Phone: History of cholecystectomyS/P laparoscopic cholecystectomyAudreymissy Mccoy LOGGING SUPERVISOR Work Phone: Plan of Treatment DateCare ActivityDetailAuthorStart: 89-70-2529Npnbcv Vaccines (1 of 2)Zoster Vaccines (1 of 2)[facility]: 07-21-2025 End: 10-23-2191Cwdkbzi encounter rzmaezaqr43/30/2025 7:00 AM EST Office Visit Rheumatology [address] [place] [address] Nae Ibarra MD [address] [facility] [place] [address] 1 year follow upRheumatologyComment on above:1 year follow up Start: 03-24-2025 End: 98-17-1929Bminrwv encounter taaarrtda61/02/2025 1:50 PM EDT Office Visit [facility] [place] [facility] [address] [place] [address] Jeremiah Burroughs DO [address] [facility] [facility] [facility] [address] [place]court, [place] [id number] ArrivedNOMS Sg OBGYNComment on above:ArrivedStart: 13-00-1817LDCUU-19 Vaccine ( season)COVID-19 Vaccine ( season)[facility]: 03-23-2025 Influenza vaccinationInfluenza Vaccine (#1)[facility] HealthcareStart: 02-06-2025 End: 35-80-0720Bdlfqzq encounter /18/2025 9:00 AM EDT Office Visit Gastroenterology [address] [place] [address] Dara Butler Jr., DO [address] [place] [address] Stomach pain/diarrheaGastroenterology Comment on above:Stomach pain/diarrheaStart: 08-53-1254Xsgecy Adult Physical Yearly Adult PhysicalMansfield HospitalStart: 06-69-1244Cjlmo BMI ScreeningAdult BMI ScreeningBluffton Hospital SystemStart: 76-54-8022Pnbyqck ScreeningTobacco ScreeningProSelect [facility] SystemStart: 01-09-2025 End: 21-36-7053Rikjslq encounter anynipyzp35/20/2025 9:00 AM EDT Office Visit Gastroenterology [address] [address] Dara Butler Jr., DO [address] [phone] Stomach pain/diarrheaGastroenterology Comment on above:Stomach pain/diarrheaStart: 09-17-2024 End: 45-00-7700Tlksefo encounter onswzzvls56/26/2025 12:30 PM EST Appointment Ambulatory Surgery [address] [place] [address] [place] [address] [place] [address] Ambulatory SurgeryStart: 08-27-2024 End: 51-62-5446Bpyapsydg to same day surgery jmslhn1808/27/2024 8:55 AM EST - 08/27/2024 9:32 AM EST Surgery Procedures [address] [place] [address] Tho Huffman MD [address] [facility] [place] [address] BLOCK CELIAC PLEXUS WITH C-ARMProcedures Comment on above:BLOCK CELIAC PLEXUS WITH C-ARMStart: 08-27-2024 End: 92-40-6039Mvno anes celiac plexus w/wo radiologic monitrngBLOCK CELIAC PLEXUS WITH C-ARM Right sided abdominal pain Celiac artery compression syndrome (HCC) Neuralgia and neuritis 08/27/2024 8:55 AM [facility] 30-74-7678Xeaqpygwlw hospital visit by ietsklzcb34/05/2025 8:55 AM [facility] Hospital Encounter Procedures [address] [place] [address] Tho Huffman MD [address] [facility] [place] [address] Right sided abdominal pain [R10.9], Celiac artery compression syndrome (HCC) [I77.4], Neuralgiaand neuritis [M79.2]ProceduresComment on above:Right sided abdominal pain [R10.9], Celiac artery compression syndrome (HCC) [I77.4], Neuralgia andneuritis [M79.2]Start: 08-18-2024 End: 20-33-3219Fxghnfq encounter /27/2025 1:40 PM EST Office Visit Rheumatology [address] [facility] [place] [address] Nae Ibarra MD [address] [facility] [address] for fatigue fu OV.RheumatologyComment on above:for fatigue fu OV.Start: 88-25-4163Eujavvxo identified in Urine by CultureUrine Culture [facility] Centertart: 97-68-8154Ltkxv cultureOhioHealth Nelsonville Health Centertart: 07-15-2024 End: 822055-ncisjiaxdgtaxn D3 [Mass/volume] in Serum or PlasmaMercy Health St. [facility] Work Phone: Comment on above:Expected: 07/15/2024 (Approximate), Expires: 10/14/2024Start: 07-04-2024 End: 50-23-5619Wbnyrcomc to same day surgery jhgnyl2107/04/2024 7:30 AM EST - 07/04/2024 8:08 AM [facility] Surgery Ambulatory Surgery [address] [place] [place] [address] Tho Huffman MD [address] [facility] [place] [address] BLOCK CELIAC PLEXUS WITH C-ARMAmbulatory SurgeryComment on above:BLOCK CELIAC PLEXUS WITH C-ARM Start: 07-04-2024 End: 10-17-7496Tfwx anes celiac plexus w/wo radiologic monitrngBLOCK CELIAC PLEXUS WITH C-ARM Right sided abdominal pain Celiac artery compression syndrome (HCC) Neuralgia and neuritis 07/04/2024 7:30 AM [facility]AINStart: 14-51-2362Jyymqaacin hospital visit by qvhrkmecn92/13/2024 7:30 AM [facility] Hospital Encounter Ambulatory Surgery [address] [facility] [address] [place] [address] Tho Huffman MD [address] [facility], [place] [id number] Right sided abdominal pain [R10.9], Celiac artery compression syndrome (HCC)[I77.4], Neuralgia and neuritis [M79.2] Ambulatory SurgeryComment on above:Right sided abdominal pain [R10.9], Celiac artery compression syndrome (HCC) [I77.4], Neuralgia andneuritis [M79.2]Start: 07-03-2024 End: 48-45-7383Uvmoqou encounter procedureNOMS BCP OBComment on above:Arrived Start: 07-01-2024 End: 89-01-1124Ehiiykx encounter wbzikobtu75/10/2024 2:05 PM EST Office Visit [facility] [address] [place] [address] Elif Rich MD [address] [place] [address] ArrivedNOMS SWS DERMComment on above:ArrivedStart: 06-30-2024 End: 76-94-7534Yjiirff encounter nobpculxx50/09/2024 10:30 AM EST Office Visit Pain Management [address] [place] [address] Paula Pretty MD [address] [place] [address] follow upPain ManagementComment on above: follow upStart: 06-13-2024 End: 50-92-3996Thvthvc encounter skiragdmj60/22/2024 1:20 PM EST Office Visit [facility]astroenterology [address] [facility] [place] [address] Dara Butler Jr., DO [address] [facility] [address] JN -SOONER APPT FOR FOLLOW UP GastroenterologyComment on above:JN -SOONER APPT FOR FOLLOW UPStart: 05-07-2024 End: 19-41-3979Iirpkgy encounter jkxvnaiwf14/16/2024 11:45 AM EDT Office Visit Gastroenterology [address] [place] [address] [place] [address] [place] [address] F/U OVGastroenterologyComment on above:F/U OVStart: 04-30-2024 End: 04-82-9190Ezuytlb encounter procedurePain ManagementComment on above:Dr [place] claudio referralStart: 04-16-2024 End: 52-48-2484Xfygzmd encounter uomqqhjli55/25/2024 9:00 AM EDT Appointment [facility] [address] [place] [address] Whitney Ambriz MD MPH [address] [facility] [employer], [place] [phone] [facility] Campustart: 03-26-2024 End: 51-10-1958Dpcofra encounter xorkatikw47/04/2024 11:00 AM EDT Office Visit Pain Management [address] [phone] Paula Pretty MD [address] [place] [address] [place] [address] Dr [place] claudio referralPain Management Comment on above:Dr [place] claudio referralStart: 67-40-5025Cicvb-19 Vaccine ( season)Covid-19 Vaccine ()[facility]Start: 46-39-5762Mgnqo-19 Vaccine ()Covid-19 Vaccine ()[facility] ClinicStart: 71-50-5609Nbtvpyvqq vaccinationRegional Medical Center Start: 03-18-2024 End: 28-07-7993Cjrqnsk encounter ekvalseeu77/27/2024 1:00 PM EDT Office Visit Gastroenterology [address] [address] [place] [address] [place] [address] Pancreatitis second opinionGastroenterologyComment on above: Pancreatitis second opinionStart: 03-14-2024 End: 80-64-5179Incdgdi encounter pdamskuzx39/23/2024 10:00 AM EDT Office Visit Gastroenterology [address] [place], [place] [phone] Dara Butler Jr., DO [address] [place] [address] follow upoGastroenterologyComment on above:follow upoStart: 02-11-2024 End: 55-72-9752Seqzpbj encounter zjvlbpoea08/22/2024 9:30 AM EDT Appointment Radiology [address] [place] [address] : XR UPPER GI SINGLE CONTRAST RadiologyComment on above:: XR UPPER GI SINGLE CONTRASTStart: 02-01-2024 End: 75-85-7309Mdtawxe encounter izwwznvpu93/12/2024 3:00 PM EDT Office Visit Gastroenterology [address] [place] [address] Dara Butler Jr., DO [address] [place] [address] JN -SOONER APPT FOR FOLLOW UP GastroenterologyComment on above:JN -SOONER APPT FOR FOLLOW UPStart: 01-30-2024 End: 79-14-6940Sdjockl encounter cdsucwbyw16/10/2024 8:30 AM EDT Appointment [facility] [address] [place] [address] Gastric Emptying Study Weight 115 / Patient not Diabetic / Order in EPIC // DX: Upper abdominal pain [R10.10][facility] HOSPComment on above:Gastric Emptying Study Weight 115 / Patient not Diabetic / Order in EPIC // DX: Upper abdominal pain [R10.10]Start: 01-09-2024 End: 25-15-3793Pcqcahf encounter xjxwhtvoi65/19/2024 8:30 AM EDT Appointment [facility] [address] [address] Weight 115 / Patient not Diabetic / Order in EPIC // DX: Upper abdominal pain [R10.10][facility] HOSPComment on above:Weight 115 / Patient not Diabetic / Order in EPIC // DX: Upper abdominal pain [R10.10]Start: 12-28-2023 End: 67-63-1057Hfrrbkh encounter lshswlogv22/07/2024 3:00 PM EDT Office Visit Gastroenterology [address] [place] [address] Dara Butler Jr., [address] [place] [address] abdominal pain- add per GastroenterologyComment on above:abdominal pain- add per JNStart: 12-27-2023 End: 28-68-2531wowodnbvzt34/06/2024 10:00 AM EDT Results Only [facility] [address] [place] [address] [place] [address] [facility] LaboratoryStart: 12-26-2023 End: 99-04-7004Malxddo [Enzymatic activity/volume] in Serum or PlasmaAMYLASE Lab Routine Generalized abdominal pain History of acute pancreatitis Expected: 12/26/2023, Expires: 03/26/2024leveland ClinicComment on above:Expected: 12/26/2023, Expires: 03/26/2024Start: 12-26-2023 End: 03-26-2024 reactive protein [Mass/volume] in Serum or PlasmaC-REACTIVE PROTEIN Lab Routine Generalized abdominal pain History of acute pancreatitis Expected: 12/26/2023, Expires: 03/26/2024leveland ClinicComment on above: Expected: 12/26/2023, Expires: 03/26/2024Start: 12-26-2023 End: 39-12-1764HVQ W Auto Differential panel - BloodCOMPLETE BLOOD COUNT AND DIFFERENTIAL Lab Routine Generalized abdominal pain History of acute pancre atitis Expected: 12/26/2023, Expires: 03/26/2024leveland ClinicComment on above:Expected: 12/26/2023, Expires: 03/26/2024Start: 12-26-2023 End: 60-58-4618Vltidsbsgheoj metabolic 2000 panel - Serum or PlasmaCOMPREHENSIVE METABOLIC PANEL Lab Routine Generalized abdominal pain History of acute pancreatitis Expected: 12/26/2023, Expires: 03/26/2024[facility] Work Phone: Comment on above:Expected: 12/26/2023, Expires: 03/26/2024Start: 12-26-2023 End: 88-07-9552Yvvxpobnlms sedimentation rateSEDIMENTATION RATE, WESTERGREN Lab Routine Generalized abdominal pain History of acute pancreatitisExpected: 12/26/2023, Expires: 03/26/2024leveland ClinicComment on above:Expected: 12/26/2023, Expires: 03/26/2024Start: 12-26-2023 End: 09-71-4377Upblzd [Enzymatic activity/volume] in Serum or PlasmaLIPASE Lab Routine Generalized abdominal pain History of acute pancreatitis Expected: 12/26/2023, Expires: 03/26/2024leveland ClinicComment on above:Expected: 12/26/2023, Expires: 03/26/2024Start: 12-10-2023 End: 17-30-5042Jpzrrez encounter xvbmkeyoo02/20/2024 12:20 PM EDT Office Visit Rheumatology [address] [facility] [place] [address] Nae Ibarra MD [address] [place] [address] for fatigue fu OV.RheumatologyComment on above:for fatigue fu OV.Start: 11-21-2023 End: 86-98-2284Bmoircpbe to same day surgery lembrk9811/21/2023 3:15 PM EDT - 11/21/2023 5:45 PM EDT Surgery [facility] Operating Room [address] [place], [place] [phone] [place] [address] [place] [address] [id number] LAPAROSCOPIC CHOLECYSTECTOMYFaFall River Hospital Operating RoomComment on above:LAPAROSCOPIC CHOLECYSTECTOMYStart: 11-21-2023 End: 72-40-4499Vqobojwozrd surg cholecystectomyLAPAROSCOPIC CHOLECYSTECTOMY Cholecystitis 11/21/2023 3:15 PM EDTFV ORStart: 38-71-5218Fshwwpxlqn hospital visit by bqavzznuq69/01/2024 3:15 PM EDT Hospital Encounter [facility] Operating Room [address] [place] [address] [place] [address] [place] [address] Cholecystitis [K81.9][facility] Operating RoomComment on above: Cholecystitis [K81.9]Start: 51-41-1939Pwprvfdvuq Health ScreeningBehavioral Health ScreeningCleSt. Vincent Hospitaltart: 77-08-4632Bpezugiufu AssessmentDepression AssessmentCleSt. Vincent Hospitaltart: 45-57-3800Raikx-19 Vaccine ( season)Covid-19 Vaccine ( season)[facility]: 03-23-2023 Influenza vaccinationTriHealth Bethesda North Hospitaltart: 02-06-2023 End: 30-19-8406Rmfftwp [Enzymatic activity/volume] in Serum or PlasmaAMYLASE BLD Lab Routine Generalized abdominal pain Chronic pancreatitis, unspecified pancreatitis type (HCC) Intestinal malabsorption, unspecified type Expected: 02/06/2023, Expires: 04/08/2023[facility] Work Phone: Comment on above:Expected: 02/06/2023, Expires: 04/08/2023Start: 02-06-2023 End: 64-91-2102MFJNOX SCREEN WITH REFLEXCELIAC SCREEN WITH REFLEX Lab Routine Generalized abdominal pain Chronic pancreatitis, unspecified pancreatitis type (HCC) Intestinal malabsorption, unspecified type Expected: 02/06/2023, Expires: 04/08/2023[facility] Work Phone: Comment on above:Expected: 02/06/2023, Expires: 04/08/2023Start: 02-06-2023 End: 68-14-9065Yerwugmlmgeqc metabolic 2000 panel - Serum or PlasmaCOMP METABOLIC PANEL Lab Routine Generalized abdominal pain Chronic pancreatitis, unspecified pancreatitis type (HCC) Intestinal malabsorption, unspecified type Expected: 02/06/2023, Expires: 04/08/2023[facility] Work Phone: Comment on above:Expected: 02/06/2023, Expires: 04/08/2023Start: 02-06-2023 End: 43-27-4816LFX SUBCLASS 1,2,3,4IGG SUBCLASS 1,2,3,4 Lab Routine Generalized abdominal pain Chronic pancreatitis, unspecified pancreatitis type (HCC) Intestinal malabsorption, unspecified type Expected: 02/06/2023, Expires: 04/08/2023[facility] Work Phone: Comment on above:Expected: 02/06/2023, Expires: 04/08/2023Start: 02-06-2023 End: 63-15-7050Rblsva [Enzymatic activity/volume] in Serum or PlasmaLIPASE BLD Lab Routine Generalized abdominal pain Chronic pancreatitis, unspecified pancreatitis type (HCC) Intestinal malabsorption, unspecified type Expected: 02/06/2023, Expires: 04/08/2023[facility] Work Phone: Commmrd on above:Expected: 02/06/2023, Expires: 04/08/2023Start: 02-06-2023 End: 98-87-0077Trnzm 1996 panel - Serum or PlasmaLIPID PANEL BASIC Lab Routine Generalized abdominal pain Chronic pancreatitis, unspecified pancreatitis type (HCC) Intestinal malabsorption, unspecified type Expected: 02/06/2023, Expires: 04/08/2023[facility] Work Phone: Comment on above:Expected: 02/06/2023, Expires: 04/08/2023Start: 02-06-2023 End: 29-47-2302Ugmdwik Ab [Presence] in Serum by ImmunoassayANA BLOOD Lab Routine Generalized abdominal pain Chronic pancreatitis, unspecified pancreatitis type (HCC) Intestinal malabsorption, unspecified type Expected: 02/06/2023, Expires: 04/08/2023[facility] Work Phone: Comment on above:Expected: 02/06/2023, Expires: 04/08/2023Start: 63-05-4726GGNYZJIYBT ASSESSMENTDEPRESSION ASSESSMENTTriHealth Bethesda North Hospitaltart: 07-20-2022 End: 38-61-7310Wyvffxk encounter djurkatse58/29/2022 Office Visit Gastroenterology Irena Diallo MD [address] [place] [address] General and Gastrointestinal Surgery [facility]: 08-30-0108Clejhhqkb vaccinationINFLUENZA VACCINE (#1)[facility]: 03-15-2022 End: 03-15-2023 DIFFICILE BY PCR (CLOSTRIDIUM DIFFICILE TOXIN)C DIFFICILE BY PCR (CLOSTRIDIUM DIFFICILE TOXIN) Microbiology Routine Diarrhea, unspecified type Expected: 03/15/2022, Expires: 03/15/2023OSRegency Hospital Cleveland EastComment on above:Expected: 03/15/2022, Expires: 03/15/2023Start: 03-15-2022 End: 51-72-1873VUEVNNCJF ENTERIC PANEL, STOOLMOLECULAR ENTERIC PANEL, STOOL Fluids Routine Diarrhea, unspecified type Expected: 03/15/2022, Expires: 03/15/2023[facility] HospitalComment on above:Expected: 03/15/2022, Expires: 03/15/2023Start: 87-68-2478UZBPQ-19 VACCINE (3 - Booster for Pfizer series)COVID-19 VACCINE (3 - Booster for Pfizer series)[facility] Start: 07-40-8736TVSRJ-19 VACCINE (3 - Booster for Pfizer series)COVID-19 VACCINE (3 - Booster for Pfizer series)[facility] Hospitaltart: 39-51-8777OLHOP-19 VACCINE (3 - Pfizer series)COVID-19 VACCINE (3 - Pfizer series)[facility] Start: 73-46-5077BPlU,Tdap and Td Vaccines (7 - Td or Tdap)DTaP,Tdap and Td Vaccines (7 - Td or Tdap)[facility] SystemStart: 21-28-7406NPaV/Tdap/Td Vaccines (7 - Td or Tdap)DTaP/Tdap/Td Vaccines (7 - Td or Tdap)[facility] HospitalStart: 08-03-6654Qfmfg microalbumin profileDTaP,Tdap,Td Vaccine (7 - Td or Tdap)[facility] Hospitaltart: 51-82-7310LXN TESTINGPAP TESTING [facility] Hospitaltart: 73-69-5126Vxrnokdic for malignant neoplasm of cervixKettering Health Springfieldtart: 61-18-1397Yyabi diphtheria, tetanus and acellular pertussis (DTaP) vaccinationTDAP (ADULT)[facility]: 27-84-5799Kzmjn microalbumin profileTriHealth Bethesda North Hospitaltart: 38-35-8328Ipvssooirl ScreeningDepression ScreeningTriHealth Bethesda North Hospitaltart: 40-47-5172Xkjazkevi C screeningHepatitis C ScreeningMansfield HospitalStcedar crest: 2016 HIV SCREENINGHIV SCREENINGTriHealth Bethesda North Hospitaltart: 22-72-2551PYP screeningHIV ScreeningTriHealth Bethesda North Hospitaltart: 88-88-5646Myjcqxk vaccinationTETANUSOSSelect Medical Specialty Hospital - Akrontart: 05-48-9328Xxysipznehbxf B Vaccine: Consider Based On Risk (1 of 2 - Patient Seeks Protection)Meningococcal B Vaccine: Consider Based On Risk (1 of 2 - Patient Seeks Protection)[facility] Hospitaltart: 2014 MENINGOCOCCAL B: Consider based on risk (1 of 2 - Patient Seeks Protection) MENINGOCOCCAL B: Consider based on risk (1 of 2 - Patient Seeks Protection) [facility] Hospitaltart: 53-38-4603Mzunqyfcc for Chlamydia trachomatisCHLAMYDIA SCREENOSU Access Hospital Daytontart: 59-10-4384FSS screeningHIV SCREENING DISCUSSIONOSU Access Hospital Daytontart: 86-75-9704IAWX TO ADULT TRANSITION ANNUAL ASSESSMENTPEDS TO ADULT TRANSITION ANNUAL ASSESSMENTRegional Medical Center Start: 25-16-9865TNU Vaccine (3 - 2-dose series)HPV Vaccine (3 - 2-dose series) [facility] Hospitaltart: 66-51-2911RGD Vaccines (3 - 2-dose series)HPV Vaccines (3 - 2-dose series)[facility]: [phone] ScreeningDepression ScreeningUNC Health Rockinghamtart: [phone] TO ADULT TRANSITION INITIAL DISCUSSIONPEDS TO ADULT TRANSITION INITIAL DISCUSSION [facility]: [phone] for human papillomavirusHPV VACCINE ADOL (1 - 2-dose series)[facility]: [phone] B: Consider based on risk (1 of 2 - Risk Bexsero 2-dose series)MENINGOCOCCAL B: Consider based on risk (1 of 2 - Risk Bexsero 2-dose series)[facility] Start: [id number] VACCINE (1 - 2-dose series)HPV VACCINE (1 - 2-dose series) [facility]: [phone] SCREENGONORRHEA SCREENOSU Access [facility]: 89-84-1588GBAFRJLBL B (1 of 3 - 3-dose series)HEPATITIS B (1 of 3 - 3-dose series)[facility]: 44-65-3344Pjjgebuuu B Vaccine (1 of 3 - 3-dose series)Hepatitis B Vaccine (1 of 3 - 3-dose series)[facility]: 97-38-7017Zuklemyvc C antibody, confirmatory testHEPATITIS C VIRUS SCREENINGOSU [facility] Dayt[facility]: 07-05-3170BGY screeningHIV Screening [facility]: 88-50-8944Faygi panelLipid Panel [facility]: 89-56-2046Xrlubl Adult PhysicalYearly Adult [facility] HospitalBlood type and Indirect antibody screen panel - BloodType And Screen Lab Timed As needed (Lab) for 1 Occurrences starting 04/16/2024[facility] Service Area Work Phone: Comment on above:As needed (Lab) for 1 Occurrences starting 4CBC W Auto Differential panel - BloodCBC and differential Lab Routine PCOS (polycystic ovarian syndrome) Ordered: 03/24/2025[facility] Comment on above:Ordered: 03/24/2025 End: 83-39-2971Io angio abd&plvis cntrst mtrl w/wo cntrst imgCTA ABD/PEL W IVCON Radiology Routine Generalized abdominal pain RUQ pain Chronic recurrent pancreatitis (HCC) Diarrhea, unspecified type 1 Occurrences starting 06/13/2023 until 07/12/2024[facility] Work Phone: comment on above:1 Occurrences starting 06/13/2023 until 07/12/2024ermatopathology examDermatopathology exam Pathology and Cytology Timed Neoplasm of unspecified behavior of bone, soft tissue, and skin Release Upon Ordering for 1 Occurrences starting 07/01/2024[facility] Work Phone: comment on above:Release Upon Ordering for 1 Occurrences starting 07/01/2024 End: 89-26-3149MzbjseoynpqdvqxtPLOU Cardiology Routine Other supraventricular tachycardia (HCC) Palpitations 1 Occurrences starting 10/22/2023 until 10/21/2024[facility] Work Phone: Comment on above:1 Occurrences starting 10/22/2023 until 10/21/2024Follicle stimulating hormoneFollicle stimulating hormone Lab Routine PCOS (polycystic ovarian syndrome) Ordered: 03/24/2025[facility] Comment on above:Ordered: 03/24/2025hCG, quantitative, pregnancyhCG, quantitative, Lab Routine PCOS (polycystic ovarian syndrome) Ordered: 03/24/2025[facility] Work Phone: comment on above:Ordered: 03/24/2025Hemoglobin A1c/Hemoglobin.total in BloodHemoglobin A1c Lab Routine Abnormal uterine bleeding (AUB) Ordered: 03/24/2025[facility] HealthcareComment on above:Ordered: 03/24/2025Luteinizing hormoneLuteinizing hormone Lab Routine PCOS (polycystic ovarian syndrome) Ordered: 03/24/2025[facility] HealthcareComment on above:Ordered: 03/24/2025 End: 20-11-7965Qszukbwa SedationModerate Sedation Procedures Routine Once for 1 Occurrences starting 04/16/2024 until 04/16/2024[facility] Work Phone: Comment on above:Once for 1 Occurrences starting 04/16/2024 until 04/16/2024 End: 19-83-3360Lcr abdomen w/o & w/contrast materialMRI ABDOMEN WO/W IVCON Radiology Routine Chronic recurrent pancreatitis (HCC) 1 Occurrences starting 03/16/2023 until 04/14/2024[facility] Work Phone: Comment on above:1 Occurrences starting 03/16/2023 until 04/14/2024 End: 66-26-7683CB Stomach Views for gastric emptying solid phase W radionuclide PONM GASTRIC EMPTYING SOLID Radiology Routine Upper abdominal pain Dyspepsia and disorder of functionof stomach Dyspepsia 1 Occurrences starting 12/28/2023 until 01/26/2025[facility] Occurrences starting 12/28/2023 until 01/26/2025OUTSIDE VENDOR CARDIAC OUTPATIENT EXTENDED RHYTHM RECORDING (WITHOUT TELEMETRY)OUTSIDE VENDOR CARDIAC OUTPATIENT EXTENDED RHYTHM RECORDING (WITHOUT TELEMETRY) Holter Routine Other supraventricular tachycardia (HCC) Palpitations Ordered: 10/22/2023[facility] Work Phone: Comment on above:Ordered: 10/22/2023 End: 13-11-6537TY Gastrointestinal tract upper Views W barium contrast POXR UPPER GI SINGLE CONTRAST Radiology Routine Upper abdominal pain Dyspepsia and disorder of function of stomach 1 Occurrences starting 12/28/2023 until 01/26/2025[facility] Work Phone: Comment on above:1 Occurrences starting 12/28/2023 until 01/26/2025Study Interpretation of outside [facility] Service AreaSurgical pathology studySurgical Pathology Exam Pathology and Cytology Timed Median arcuate ligament syndrome (CMS-HCC) Release Upon Ordering for 1 Occurrences starting 04/16/2024[facility] Service Area Work Phone: comment on above:Release Upon Ordering for 1 Occurrences starting 04/16/2024Thyrotropin [Units/volume] in Serum or PlasmaTSH Lab Routine PCOS (polycystic ovarian syndrome) Ordered: 03/24/2025[facility] HealthcareComment on above:Ordered: 03/24/2025Thyroxine (T4) free [Mass/volume] in Serum or PlasmaT4, free Lab Routine PCOS (polycystic ovarian syndrome) Ordered: 03/24/2025[facility] HealthcareComment on above:Ordered: 03/24/2025Tissue Pathology biopsy reportMer[facility] Work Phone: Comment on above:Release Upon Ordering for 1 Occurrences starting 09/03/2024, 1 [facility] Immunizations Immunization DateImmunizationNotesCare QbgkrzjxJmueosvn08-65-1356pprcz papilloma virus vaccine, quadrivalentElif Rich MD Work Phone: [facility] CenterTifxoclzhg23-90-9174dlxbynmak virus vaccineElif Rich MD Work Phone: [phone] CenterKmbgmmhlwr06-13-6086OEB, unspecified formulation Dane Merida MD Work Phone: [facility] Work Phone: [phone] papilloma virus vaccine, quadrivalent Elif Rich MD Work Phone: [facility] CenterAlbpphxspj39-90-3417aldizdagsthhd polysaccharide (groups A, C, Y and W-135) diphtheria toxoid conjugate vaccine (MCV4P)Elif Rich MD Work Phone: [facility] CenterIynykrfako49-37-9259igtdkib toxoid, reduced diphtheria toxoid, and acellular pertussis vaccine, adsorbedElif Rich MD Work Phone: [facility] CenterKygfkvlsco25-87-8668culeuztzh virus vaccineElif Rich MD Work Phone: [phone] [place], [place] [address]Vwgvvelhpg61-85-1937ypbqftaznm, tetanus toxoids and acellular pertussis vaccineElif Rich MD Work Phone: [phone] [place], [place] [address]Vmvczwvjoq57-23-5644ccjgyip, mumps and rubella virus vaccineElif Rich MD Work Phone: [phone] [place], [place] [address]Aqylenceuj34-46-6309okgvfkfnry vaccine, inactivatedElif Rich MD Work Phone: [phone] [place], [place] [address]Nurduzkiid84-61-4961pplenqruvw, tetanus toxoids and acellular pertussis vaccine, unspecified formulationElif Rich MD Work Phone: [phone] [place], [place] [address]Okayxnoyri98-05-9064nwohqzzjjwez conjugate vaccine, 7 valentEjustine Rich MD Work Phone: [phone] [place], [place] [address]Ritfjlfdwo08-22-4089lsauxhwmezc influenzae type b vaccine, conjugate unspecified formulationElif Rich MD Work Phone: [phone] [place], [place] [address]Aardeainvy45-66-3791mtrmlxy, mumps and rubella virus vaccineElif Rich MD Work Phone: [phone] [place], [place] [address]Wbaxccrxzt73-54-8544mgssvzcmwf vaccine, unspecified formulationElif Rich MD Work Phone: [phone] [place], [place] [address]Klsrpuryio92-38-0389fuaixbglv virus vaccineElif Rich MD Work Phone: [phone] [place], [place] [address]Duufrubnup62-39-9842ggssuyxhce, tetanus toxoids and acellular pertussis vaccine, unspecified formulationElif Rich MD Work Phone: [phone] [place], [place] [address]Gpgdqfuzvx89-24-9306ctnharnaajz influenzae type b vaccine, conjugate unspecified formulationElif Rich MD Work Phone: [phone] [place], [place] [address]Osvawcrhow34-64-3408ipedfcpkm B vaccine, pediatric or pediatric/adolescent dosageElif Rich MD Work Phone: [phone] [place], [place] [address]Twlugautzs22-68-4119buhqonxvbw vaccine, unspecified formulationElif Rich MD Work Phone: [phone] [place], [place] [address]Ukfxnynvuh00-48-6820wtrdrktwzr, tetanus toxoids and acellular pertussis vaccine, unspecified formulationElif Rich MD Work Phone: [phone] [place], [place] [address]Lopegcqqmp12-48-2935hutpornqwtc influenzae type b vaccine, conjugate unspecified formulationElif Rich MD Work Phone: [phone] [place], [place] [address]Ewcpovxhpw09-71-0976lnauygazpv vaccine, unspecified formulationElif Rich MD Work Phone: [phone] [place], [place] [address]Uwnpcfxwuk74-19-3715bnfchdsmli, tetanus toxoids and acellular pertussis vaccine, unspecified formulationElif Rich MD Work Phone: [phone] [place], [place] [address]Lwxonbiaju91-29-4229xmyaeuttdcy influenzae type b vaccine, conjugate unspecified formulationElif Rich MD Work Phone: [phone] [place], [place] [address]Kzmfwrjowd71-06-6456tpbgsbemm B vaccine, pediatric or pediatric/adolescent dosageElif Rich MD Work Phone: [phone] [place], [place] [address]Tpyrhwfqjo31-95-1626xpoiqgivib vaccine, unspecified formulationElif Rich MD Work Phone: [phone] [place], [place] [address]Pkyrmeaszp80-56-6374ebcrrmnxd B vaccine, pediatric or pediatric/adolescent dosageElif Rich MD Work Phone: [phone] [place] [address] Payers DatePayer CategoryPayerPolicy [id number] Cross Blue [id number] [facility] Regional Medical Center Managed CareB[facility] 1.2.840.528489.1.13.647.2.7.9.778650.918658.99408-96-8116HahgSan Juan Regional Medical Center [id number] 2.160.7.988640.35760623-22-4358Wexodse 1.2.840.318452.1.13.172.2.7.3.548[id number] 2..8.613086.31327355-70-2696Lmvteti Health InsuranceUNITED HEALTHCARE 1.2840.808750.1.13.693.2.7.9.515872.921948.41230-00-8158Gywlrxz Health Hwnhtjzqt7[id number] 2.0.1.028427.3.579.2.647 [id number] 2.1.365672.3.579.2.73266-81-2097Ohtkyza [id number] 2.0.1.429289.3.57[id number] 2.0.1.618157.3.57[id number] 2.0.1.508794.3.579.2.77182-74-4310Qfajudj0165347 2.0.1.734618.3.579.2.45130-23-0226Lqvcbvd0997589 2.16.840.1.816122.3.579.2.14181-34-0320Bhrjsxv6611594 2.16840.1.933587.3.579.2.82414-10-9992Uhthohi1710542 2.16840.1.310080.3.579.2.88795-47-8527Gczswqj3745001 2.16840.1.863924.3.579.2.38070-13-2115Yxtabmn3728076 2.16840.1.996075.3.579.2.02999-53-6224Dgnefpi7817491 2.840.1.236531.3.579.2.48673-17-2128Ggauohw3341089 2.840.1.973756.3.579.2.50721-80-5982Vjxasin3274177 2.840.1.031955.3.579.2.90780-66-1046Gmqjnwb0046380 2.840.1.057582.3.579.2.08672-26-8388Sinnyca5054084 2.840.1.063138.3.579.2.36168-84-6533Jujpgte7430237 2.840.1.750248.3.579.2.59194-49-1378Fswohrh6772469 2.840.1.549923.3.579.2.68898-23-2323Hujfcho3262076 2.16840.1.244231.3.579.2.69439-92-0794Nkopxen0807094 2.16840.1.344504.3.579.2.06684-08-0008Phfsgou9321862 2.16840.1.203531.3.579.2.57813-40-2312Pmhtuyr6885601 2.16840.1.594188.3.579.2.43644-46-9115Yxwrcqu2670180 2.16840.1.668230.3.579.2.16524-67-5201Hvpytzi0269563 2.16840.1.077778.3.579.2.79272-87-4871Txubvbi5957778 2.840.1.602700.3.579.2.50940-55-0996Ebbrynf1771907 2.840.1.625361.3.579.2.46007-16-6550Gugamdf3672081 2.840.1.157306.3.579.2.72976-70-7465Zyoxqgd0115447 2.840.1.162022.3.579.2.73384-09-7659Rkvesxo5930031 2.0.1.785713.3.579.2.29210-61-5831Zvxdrzv9057887 2.840.1.819833.3.579.2.45260-93-6780Rhcldds6714467 2.840.1.240077.3.579.2.27459-67-7658Olwewow6479406 2.840.1.435463.3.579.2.86820-96-6528Umxtswe0769024 2.840.1.510056.3.579.2.95798-68-9747Mjaddyd7104581 2.840.1.980080.3.579.2.83376-13-9188Avgdnua0721496 2.840.1.536104.3.579.2.39684-14-8466Rchfuhw74413667 2.840.1.485838.3.579.2.091587-08-3238Piupcyd2359507 2.840.1.440414.3.579.2.525742-02-3829Mfjhnus3598020 2..840.1.946708.3.579.2.6852Caaeaws76777900 2..840.1.224150.3.579.2.531 Gysgklv35014251 2..840.1.205344.3.579.2.531 Social History DateTypeDetailFacilityUnknown if ever smokedNort Collect.it Other Start: 02-06-2023 End: 35-43-9681Tun Assigned At BirthTri[facility] Hospitaltart: 03-15-2022 End: 52-13-7486Whujqlq smoking status NHISNever smoked tobaccoOSU Access Hospital Daytontart: 03-15-2022 End: 31-40-9251Otyfehp use and exposureSmokeless tobacco non-userOSU Access Hospital Daytontart: 03-15-2022 End: 44-98-1234Mzwmhin intakeCurrent drinker of alcohol (finding)[facility] CenterStart: 40-76-8661Haxqpjv SDOH Alcohol CommentsocialOSSelect Medical Specialty Hospital - Akrontart: 68-35-1507Qpg Assigned At BirthNot on fileOSSelect Medical Specialty Hospital - Akrontart: 58-71-5081Jprudfm smoking status NHISEx-smokerRegional Medical CenterHistory of tobacco useCurrent smokerTriHealth Bethesda North Hospitaltart: 32-65-1330Laj Assigned At BirthFemaleCst. francis hospital ClinicStart: 02-06-2023 End: 40-74-1637Iyvlryp of Social functionTriHealth Bethesda North Hospitaltart: 81-46-3087Mnxfd Depression Screening Ffweijqmap6Vcdzlhhwm ClinicStart: 03-11-7888Xoeljx identity Identifies as female gender (finding)[facility]: 46-77-9441Xreoni orientationHeterosexual (finding)[facility]ional Medical CenterTobaokeene municipal hospital – [place] smoking status NHIS Tobacco smoking consumption unknownTriHealth Bethesda North Hospitaltart: 06-06-2023 End: 58-33-2717Ywyzlsa intakeEx-drinker (finding)[facility]: 79-95-8441Rcvgijg Commentsocially- rareTriHealth Bethesda North Hospitaltart: 32-88-5625Bkuocjs Comment1-2 drinks/monthly or lessNOMS HealthcareHow often to you have a drink containing alcohol?NeverUnLakeHealth [facility] Center Work Phone: Start: 01-26-2024 End: 99-59-2670Qpylbwpw to SARS-CoV-2 (event)Not sureMansfield HospitalStart: 07-24-2024 End: 43-43-9132FjrXunpqm (finding)[facility]-FairhillNEGATED: Highlighted rowSelect Medical Specialty Hospital - [place] Functional Status ZlvaTbrnujevqcCtwpccGmdxtblv53-44-9712Rzgcjjmmlz [facility] Work Phone: [phone]jsnr - suicide severity rating scale screener - recent [C-SSRS][facility] Work Phone: [phone]qvkyhqm statusUnLakeHealth [facility] Center Work Phone: [facility] Mental Status QzqeFpthebilbxIccgkcPfjskvrh18-29-8856Hfoykwisu function findingNegative 04/16/2024 8:18 AM EDT Jyoti Hodgse, VIRGILIO NegativeMansfield Hospital Work Phone: Clinical Notes 12-02-2020 to 03-24-2025 Note Date & ZjwlCjfjAcsebntd15-91-3240 History of Present illness Narrative* Valery Vazquez [...] abdominal pain 05/02/2022 Menstrual disorder 01/24/2023 Miscarriage [facility] 01/24/2023 Nausea 05/02/2022 Pain due to genitourinary [...] due to intrauterine contraceptive device (IUD) Pancreatitis ([facility]) 2014 Urine test negative HISTORY PAST [...] ovary Irregular menses IUD check up Miscarriage ([facility]) Pain due to intrauterine contraceptive device (IUD) Pancreatitis ([facility]) 2014 Dr Owen/ Hospitalization history: 2019, [...] nursing note reviewed. Exam conducted with a tread cutter present. Vitals: Estimated body mass index is [...] of: Jeremiah Burroughs DO documented in this encounterLafayette Regional Health CenterXwdfkthhbp93-33-7992 History and physical note * Dara Butler [...] 03, 2024 TIME: 10:18 AM PAGER/CONTACT #: [facility] History and physical note* Dara [...] 10:18 AM PAGER/CONTACT #: documented in this encounterRegional Medical Center02-12-2025 Nurse Note* Sera Garner RN [...] Signed By: Sera Garner RN In Department: [facility] Nurse Note* Sera Garner RN [...] Signed By: Sera Garner RN In Department: [facility] documented in [place] encounterBr[place] [address]-31-2025 Telephone encounter Note * Telephone Encounter - Shu Wilkins - 08/22/2024 11:18 AM EST Case message sent to [facility] to cancel with Dr. Huffman 08/27 per patient request. [facility]01-31-[facility] Miscellaneous Notes* Telephone Encounter - Shu Wilkins - 08/22/2024 11:18 AM EST Case message sent to [facility] to cancel with Dr. Huffman 08/27 per patient request. documented in this encounterRegional Medical Center01-06-2025 Note Attestation signed by Paula [...] be an additional personal documentation from me. [facility] Gastroenterology Follow-Up Patient Visit [...] endometriosis related. She is travelling soon to [place] next 15 days and was mentioning that she was having some UTI symptoms andrequested some medication just in case she starting the antibiotics for C diff and we instructed her that in case of confirming the UTI and starting the treatment to communicate with us to update (more content not included)... [facility]12-26-2024 Telephone encounter Note* Telephone Encounter - Ham Thompson LPN - 07/17/2024 10:41 AM EST Left message that below message viewable on patient's MC. Requested return call if unable to view message. [facility]12[facility]26[facility] Miscellaneous Notes* Telephone Encounter - [...] labs. Take over the counter vitamin D 9310-5694 International Units daily with food. Happy to further review and discuss at follow up visit. Thank you. 07/15/24 normal vitamin D 39.8, vitamin b12-841; documented in this encounterRegional Medical Center12-24-2024 Telephone encounter Note * Telephone Encounter - Nae Ibarra MD - 07/15/2024 6:41 PM EST Please Call patient if MyChart note not read to review results/released to My Chart if tests completed at [facility]: normal labs. Take over the counter vitamin D 1199-7493 International Units daily with food. Happy to further review and discuss at follow up visit. Thank you. 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 NO swelling. [...] GI for C.diff & pancreatitis care, see INFORMATION RECEPTIONIST, start prn heat/ice/otc arthritis creams, low impact [...] Dactylitis: no H/o precedent/frequent infection(s): as above Enthesopathy/[place]'s/heel/plantar tenderness: no Skin thickening, psoriasis, photosensitivity, purpura: [...] hormones; G1, P0, 1miscarriage 10/2021 Colonoscopy: outside [facility] 2020 zach rawls Bone Density:no History of Fractures:no Height Loss: no IMMUNIZATION HX: Immunization History Administered Date(s) Administered COVID-19 original vaccine, age 12+ yr, monovalent (Libboo - PURPLE TOP) 03/16/2021 04/06/2021 Pneumovax no Flu shot no Tetanus yes Last PPD: unsure PAST MEDICAL HISTORY: PMH headaches, s/p wisdom teeth extraction, s/p mole back removed PAST SURGICAL HISTORY: s/p wisdom teeth extraction, s/p mole back removed FAMILY HISTORY: mother-healthy;father- osteoarthritis;sister- sick frequently; 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 NO swelling. [...] and recurrent infection care, avoid triggers, see INFORMATION RECEPTIONIST, start prn heat/ice/otc arthritis creams, low impact [...] video & audio (virtual) or phone or ufmu-fk-npyl patient care, completing clinical documentation, obtaining and/or [...] Workers' Compensation? No Do you need an full time staff interpreter? No [facility] PROMIS CAT V2.0-PHYSICAL FUNCTION-28 [...] Without ANY difficulty Bend down to picker tender helper clothing from the floor? Without ANY difficulty [...] understand my health Agree documented in this encounterRegional Medical Center12-24-2024 NoteHNO ID: [id number] Author: NAE IBARRA MD Service: ? 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 NO swelling. [...] GI for C.diff AND pancreatitis care, see INFORMATION RECEPTIONIST, start prn heat/ice/otc arthritis creams, low impact [...] dyspnea, nausea, vomiting, night (more content not included)...[facility]12-24-[facility] Instructions * Patient Instructions* Nae Ibarra MD [...] Abs Lymph 1.00 - 4.00 k/uL 2.06 [place]% % 8.1 Abs [place] <0.87 k/uL 0.42 [place]% % 4.3 Abs [...] hepatitis panel, quantiferon tb; documented in this encounterRegional Medical Center12-17-2024 Evaluation note* Diagnosis Onset Date Resolution Status Admit Date Diarrhea acuteDecember 2023 2:08pm [facility] Work Phone: [phone] Evaluation note* Diagnosis Onset Date Resolution Status Admit Date Diarrhea acuteDecember 2023 2:08pmDysuriaacuteJanuary 2024 11:33am [facility] Work Phone: [phone] 405-624112-12-2024 History of Present illness Narrative* Valery Vazquez, RN ACUTE CARE - 07/03/2024 11:40 AM EST Reason for [...] Pain due to intrauterine contraceptive device (IUD) ([facility]) ([facility]) Pancreatitis 2014 Urine test negative HISTORY [...] Pain due to intrauterine contraceptive device (IUD) ([facility]) ([facility]) Pancreatitis 2014 Dr Owen/ Hospitalization history: [...] ASPIRATION / LYSIS 01/12/2023 MOLE REMOVAL 2019 Anderw FIELDSDOM TOOTH EXTRACTION 2016 REVIEW OF SYSTEMS [...] nursing note reviewed. Exam conducted with a tread cutter present. Vitals: Estimated body mass index is [...] of: Jeremiah Burroughs DO documented in this encounterLafayette Regional Health CenterCphpeurviq78-88-7601 Telephone encounter Note* Telephone Encounter - Jorge Oropeza - 07/03/2024 9:20 AM EST BLOCK CELIAC PLEXUS WITH C-ARM needs rescheduled. Please reach out to her to reschedule this. [facility]12-12[facility]24 Miscellaneous Notes* Telephone Encounter - Jorge Oropeza - 07/03/2024 9:20 AM EST BLOCK CELIAC PLEXUS WITH C-ARM needs rescheduled. Please reach out to her to reschedule this. documented in this encounterRegional Medical Center12-10-2024 History of Present illness Narrative* [...] Visit: pending biopsy results documented in this encounterLafayette Regional Health CenterMdbelnfmju78-88-9804 Telephone encounter Note* Telephone Encounter - Shu Wilkins - 06/23/2024 4:53 PM EST Case message sent to surgery pool to cancel with Dr. Huffman 07/04 per patient request. [facility]12-02-2024 Miscellaneous Notes* Telephone Encounter - Shu Wilkins - 06/23/2024 4:53 PM EST Case message sent to surgery pool to cancel with Dr. Huffman 07/04 per patient request. * Telephone Encounter - Bonny Joyner - 06/23/2024 10:36 AM EST PT called asking to cancel their procedure scheduled on 07/04/2024. Please review and advise. Thank you! documented in this encounterRegional Medical Center12-02-2024 Telephone encounter Note * Telephone Encounter - Bonny Joyner - 06/23/2024 10:36 AM EST PT called asking to cancel their procedure scheduled on 07/04/2024. Please review and advise. Thank you! [facility]10-23-2024 Telephone encounter Note* Telephone Encounter - Shu Wilkins - 05/14/2024 1:38 PM EDT diagnostic celiac plexus blockade CHIOMA ALONZO [id number] DESMOND HUFFMAN 07/04 -THINNERS -DM Patient was made aware that the ASC will call the day prior to scheduled procedure between the hours of 12 and 4 pm to advise patient of arrival time the day of procedure. Patient was advised that they will require a cdl bulk driver on the day of their procedure, and procedure will be cancelled if they arrive without a responsible adult to transport them home from the procedure. Patient advised that all medication management instructions prior to procedure will need addressed by clinical staff. Patient expresses understanding with no further questions or concerns at this time. [facility] Miscellaneous Notes* Telephone Encounter - Shu Wilkins - 05/14/2024 1:38 PM EDT diagnostic celiac plexus blockade CHIOMA ALONZO [id number] DESMOND HUFFMAN 07/04 -THINNERS -DM Patient was made aware that the ASC will call the day prior to scheduled procedure between the hours of 12 and 4 pm to advise patient of arrival time the day of procedure. Patient was advised that they will require a cdl bulk driver on the day of their procedure, and procedure will be cancelled if they arrive without a responsible adult to transport them home from the procedure. Patient advised that all medication management instructions prior to procedure will need addressed by clinical staff. Patient expresses understanding with no further questions or concerns at this time. documented in this encounterRegional Medical Center10-23-2024 Telephone encounter Note * Telephone Encounter - Shu Wilkins - 05/14/2024 1:36 PM EDT OPENED IN ERROR [facility] Miscellaneous Notes* Telephone Encounter - Shu Wilkins - 05/14/2024 1:36 PM EDT OPENED IN ERROR documented in this encounterRegional Medical Center10-09-2024 NoteHNO ID: [id number] Author: PAULA PRETTY MD Service: ? Author [...] than the standard meal, (more content not included)...[facility]10-09-2024 History of Present illness Narrative* Paula Pretty [...] which lowers the sensitivity of the study. Incident Manager: PSCB Transcribe Date/Time: Jan 30 2024 2:09P [...] any questions regarding this interpretation, please call [phone]. If you are unable to reach us at the number above, please feel free to contact [facility] at [phone]. Results-Findings * * *Final Report* * * DATE OF EXAM: Jul 05 2023 11:20AM [facility] 0311 - CTA ABD/PELV W [...] fluid collection. Bones/Soft Tissues: No significant finding. Padder Cushion (topogram) images: No additional findings. Result History CTA ABD/PEL W IVCON (Order #[id number]) on 07/05/2023 - Order Result History R [...] bentyl prn 3 times/week. Last colonoscopy in [place] and normal. No response to creon Fecal [...] which included: *preparing to see the patient *[id number] patient care *completing clinical documentation *obtaining and/or [...] MD April 30, 2024 documented in this encounterRegional Medical Center10-03-2024 Telephone encounter Note * Telephone Encounter - Gisela Ponce RN - 04/24/2024 2:53 PM EDT Pt of Dr. Butler. Pt is scheduled with Dr. Menon for f/u OV 05/07/2024 (made on 12/12/2023). No need for f/u OV with Dr. Menon. Continue f/u with Dr. Butler as well as Dr. Ambriz ([facility]). Attempted to call pt, no answer. Left detailed voice msg that OV with be cancelled. Instructed to call back with any questions. Gisela Ponce RN [facility] Work Phone: 1(193) 958-578110-03-2024 Miscellaneous Notes* Telephone Encounter - Gisela Ponce RN - 04/24/2024 2:53 PM EDT Pt of Dr. Butler. Pt is scheduled with Dr. Menon for f/u OV 05/07/2024 (made on 12/12/2023). No need for f/u OV with Dr. Menon. Continue f/u with Dr. Butler as well as Dr. Ambriz ([facility]). Attempted to call pt, no answer. Left detailed voice msg that OV with be cancelled. Instructed to call back with any questions. Gisela Ponce RN documented in this encounterRegional Medical Center09-25-2024 Hospital Discharge instructions* Discharge Instructions* [...] ofhaving your procedure, call the [facility] to be advised whether a visit to [...] inflamed, or looks infected. documented in this [facility] Work Phone: 1(629) 872-806709-04-2024 NoteHNO ID: [id number] Author: PAULA PRETTY MD Service: ? Author Type: Anesthesiologist Type: Progress Notes Filed: 03/26/2024 12:27 Note Text: power outage in building appt rescheduled Paula Pretty [facility]09-04-2024 History of Present illness Narrative* Paula Pretty MD - 03/26/2024 10:55 AM EDT power outage in building appt rescheduled Paula Pretty MD documented in this encounterRegional Medical Center08-21-2024 Telephone encounter Note * Telephone Encounter - Yvrose Martinez RN - 03/12/2024 11:46 AM EDT Call placed to patient to relay below message, patient verbalized understanding. Order for c.diff placed Dara Butler Jr., DO [facility]08-21-2024 Miscellaneous Notes* Telephone Encounter - [...] like callback with recommendations/order documented in this encounterRegional Medical Center08-21-2024 Telephone encounter Note * Telephone [...] advise, patient would like callback with recommendations/order [facility]08-14-2024 History of Present illness Narrative* [...] do notcorrelate with eating. Last colonoscopy in [place] and normal. Sometimes feels like can't take [...] with her after her block. GES at [facility] 01/30/24: RESULT: Solid study demonstrates: - 70% gastric retention at 1 hour (normal range, 37-90%), - 47% retention at 2 hours (normal range, 30-60%), and - 4% retention at 4 hours (normal range, 0-10%). CT Angio abdomen pelvis 07/05/[address] [facility] [address] Menon: IMPRESSION: Likely physiologic extrinsic [...] limits. Heptobiliary Scan 11/2022: Diagnostic Colonoscopy 07/2022 [facility]: Impression: Unremarkable colon examination. No ulceration, [...] Types: Marijuana MEDICATIONS: Prior to Admission Medications: [facility] ALLERGIES: No Known Allergies REVIEW [...] Director of Bariatric & Minimally Invasive Surgery [address] [address] T: [phone] F: [phone] Sita Santos RN Restoration Officer Nurse Fish Worm Grower, [place] Patient Nursing Contact T: [phone] F: [phone] Urmila Baker LPN Coordinator T: [phone] F: [phone] [facility] Work Phone: 1(178) 561-591408-14-2024 Instructions* Patient Instructions* Whitney Ambriz MD MPH - 03/05/2024 2:15 PM EDT PLAN: I will do an endoscopy I would like get pics from the last couple of CT scans. Get the injection. Let's put all of this together and see where we are. Dr. Whtiney Ambriz M.D., MPH Director of Bariatric & Minimally Invasive Surgery [place] [address] T: [phone] F: [phone] Sita Santos RN Restoration Officer Nurse Fish Worm Grower, [place] Patient Nursing Contact T: [phone] F: [phone] Urmila Baker LPN Coordinator T: [phone] F: [phone] documented in [facility] Work Phone: 1(929) 545-219108-06-2024 History of Present illness Narrative* Bola Braden [...] which included preparing to see the patient, [id number]-[id number] patient care, completing clinical documentation, obtaining and/or reviewing separately obtained history, performing a medically appropriate examination, counseling and educating the pat ient/family/caregiver, and independently interpreting results (not separately reported). Bola Braden MD February 26, 2024 * Bola Braden MD - 02/26/2024 3:21 PM EDT error documented in this encounterRegional Medical Center08-06-2024 NoteHNO ID: [id number] Author: BOLA BRADEN MD Service: ? Author [...] Systems Gastroenterology (Submi (more content not included)... [facility]08-06-2024 NoteHNO ID: [id number] Author: BOLA BRADEN MD Service: ? Author Type: Physician Type: Progress Notes Filed: 02/26/2024 18:47 Note Text: errorAcmc Healthcare System08-06-2024 Nurse Note* Eva Gray MA - 02/26/2024 3:18 PM EDT What is the reason for your visit today? Consult Who is your referring physician? None Are you having poor oral intake? NO Have you had unintentional weight loss of 15 lbs/7 Kg in the last 3-6 months? NO Bowels: diarrhea or regular Wound: None Temperature: No Drains: No [facility]08-06-2024 Nurse Note* Eva Gray MA - 02/26/2024 3:18 PM EDT What is the reason for your visit today? Consult Who is your referring physician? None Are you having poor oral intake? NO Have you had unintentional weight loss of 15 lbs/7 Kg in the last 3-6 months? NO Bowels: diarrhea or regular Wound: None Temperature: No Drains: No documented in this encounterRegional Medical Center07-22-2024 History of Present illness Narrative* Wayne Templeton RT(R) - 02/11/2024 9:30 AM EDT Radiology Service Progress Note PATIENT NAME: Chioam Alonzo DATE OF SERVICE: February 11, 2024 TIME: 9:44 AM PATIENT IDENTITY VERIFICATION COMPLETED USING TWO (2) IDENTIFIERS: Name and Date of confirmedby patient verbally. FALL SCREENING: Has the patient had 2 falls in the last year or 1 fall with injury or currently using an Ambulatory Assistive Device (Walker, Cane, Wheelchair, Crutches, etc.)? [facility] GENDER DATA: Female. status: : No status: NO. PATIENT RELEVANT IMPLANT DATA REVIEWED: Not Applicable PATIENT PRESENTS WITH AN IMPLANTABLE OR ATTACHED ARCHIVIST ECONOMIC HISTORY: No RADIOLOGY DEPARTMENT: General X-ray: Exam(s) Completed: GI/ Procedure(s): Upper GI with barium contrast PERIPHERAL IV DATA: Not applicable SIGNED BY: RT Tabitha(R) February 11, 2024 9:44 AM documented in this encounterRegional Medical Center07-22-2024 NoteHNO ID: [id number] Author: WAYNE TEMPLETON RT(R) Service: ? Author [...] PATIENT PRESENTS WITH AN IMPLANTABLE OR ATTACHED ARCHIVIST ECONOMIC HISTORY: No RADIOLOGY DEPARTMENT: General X-ray: Exam(s) Completed: GI/ Procedure(s): Upper GI with barium contrast PERIPHERAL IV DATA: Not applicable SIGNED BY: RT Tabitha(R) February 11, 2024 9:44 [facility]07-16-2024 History of Present illness Narrative* Dane [...] her after her block. documented in this [facility] Work Phone: 1(932) 310-759307-10-2024 History of Present illness Narrative* Vitor Harp [...] PATIENT PRESENTS WITH AN IMPLANTABLE OR ATTACHED ARCHIVIST ECONOMIC HISTORY: No CREATININE: Creatinine Date Value Ref Range [...] 826 PATIENT DISCHARGED TO: Ambulatory patient, left [place] department area. A Diagnostic radioactive procedure has taken place, with no further precautions necessary other than routine body substance precautions. More information regarding radiation safety can be found usingthis link: [email or web address] 20Diagnostic%20Nuclear%20Medicine%20Procedures.pdf SIGNATURE: MARTÍN De La Rosa PATIENT NAME: Chioma Alonzo DATE: January 30, 2024 TIME: 10:38 AM PAGER/CONTACT #: documented in this encounterRegional Medical Center07-10-2024 NoteHNO ID: [id number] Author: VITOR HARP CNMT Service: ? Author Type: Archaeologist Type: Progress Notes Filed: 01/30/2024 10:40 Note [...] PATIENT PRESENTS WITH AN IMPLANTABLE OR ATTACHED ARCHIVIST ECONOMIC HISTORY: No CREATININE: Creatinine Date Value Ref Range [...] [address] PERFORMED: No IV SITE: [place] only - not applicable, oral or physician administered agents given to patient POST EXAM PIV STATUS: Not applicable PROCEDURE TYPE: NM GET: 1.1 mCi Tc99m SULFUR COLLOID was administered orally via 4 oz eggbeaters and 4 ounces of water orally. ADMINISTRATION TIME: 826 PATIENT DISCHARGED TO: Ambulatory patient, left [place] department area. A Diagnostic radioactive procedure has taken place, with no further precautions necessary other than routine body substance precautions. More information regarding radiation safety can be found using this link: [email or web address] 20Diagnostic%20Nuclear%20Medicine%20Procedures.pdf SIGNATURE: MARTÍN De La Rosa PATIENT NAME: Chioma Alonzo DATE: January 30, 2024 TIME: 10:38 AM [phone] Telephone encounter Note* Telephone Encounter - Vitor Harp CNMT - 01/29/2024 1:15 PM EDT SPOKE WITH PT TO CONFIRM APT TO AND EXPLAIN THE EXAM AND ANY PREP. [facility]07-09-2024 Miscellaneous Notes* Telephone Encounter - Vitor Harp CNMT - 01/29/2024 1:15 PM EDT SPOKE WITH PT TO CONFIRM APT TO AND EXPLAIN THE EXAM AND ANY PREP. documented in this encounterRegional Medical Center06-20-2024 History of Present illness Narrative* [...] Status post laparoscopic appendectomy [Z90.49] AMANDO BARON [facility] General Surgery [place] This note was created with the assistance of a speech recognition program. While intending to generate a timely document that accurately reflects the content of the visit, no guarantee can be provided that every grammatical or spelling mistake has been or will be identified or corrected. Thank you for your understanding. AMANDO Baron 01/16/24 1213 documented in this encounterMem[facility]06-07-2024 Instructions* Patient Instructions* Dara Butler Jr., - 12/28/2023 3:15 PM EDT Check gastric emptying study Check Upper GI series Start amitriptyline Start pantoprazole Stop Carafate May use Levbid as needed documented in this encounterRegional Medical Center06-07-2024 History of Present illness Narrative* [...] last colonoscopy was 8 months ago in [place]. Start amitriptyline Keep appt with Dr. Menon [...] divisum. 12/01/22 HIDA scan was done at [facility]: Normal study EF 69% US: 10/31/22: [...] with 350 mL of normal saline. 08/02/22 [facility] Gastroenterology Chioma Alonzo is a [...] Lymph 1.00 - 4.00 k/uL 2.43 2.06 [place]% % 8.4 8.1 Abs [place] <0.87 k/uL 0.47 0.42 [place]% % 3.4 [...] SOLID Dara Butler Jr. documented in this encounterRegional Medical Center06-07-2024 NoteHNO ID: [id number] Author: DARA BUTLER JR, DO Service: ? [...] last colonoscopy was 8 months ago in [place]. Start amitriptyline Keep appt with Dr. Menon [...] divisum. 12/01/22 HIDA scan was done at [facility]: Normal study EF 69% US: 10/31/22: (care everywhere) Liver normal Gallbaldder appears normal with no stones or sludge. No gallbladder wall thickening CBD 1.[address] abd/pel w/IV cont: 10/18/22: (scanned): Liver: no enlargement, atrophy, or focal lesion Biliary: no dilation or calcification Pancreas: haziness and p (more content not included)...[facility]06-05-20[facility] Telephone encounter Note* Telephone Encounter - Analia [...] Please review and advise. Thank you Analia Etsevez RN [facility]06-05-2024 Miscellaneous Notes* Telephone Encounter - [...] advise. Analia Estevez RN documented in this encounterRegional Medical Center06-03-2024 Telephone encounter Note * Telephone Encounter - Analia Estevez RN - 12/24/2023 10:06 AM EDT Maintain Levbid. Start Carafate. Ok to move up appt to December. Dara Butler Jr., DO Please call pt to set up an office visit in December, may use hold spot if needed. Thank you. Analia Estevez RN [facility]06-03-2024 Telephone encounter Note* Telephone Encounter - Analia Estevez RN - 12/24/2023 8:[address] Butler, would you prefer to see pt sooner in December? She was started on Levbid recently with no real improvement and requesting sooner office visit? Wondering if she might benefit from seeing functional medicine? Please review and advise. Analia Estevez RN [facility]05-15-2024 History of Present illness Narrative* [...] up: KAREN Mccoy APRN.CNP documented in this encounterRegional Medical Center05-15-2024 NoteHNO ID: [id number] Author: ARIELLA MCCOY APRN.CNP Service: ? Author [...] that may arise. Follow up: KAREN Mccoy APRN.CNPAcmc Healthcare System05-15-2024 Nurse Note* Alivia Gracia MA - 12/05/2023 [...] clean & dry Temperature: No Drains: No [facility]05-15-2024 Nurse Note* Alivia Gracia MA [...] Temperature: No Drains: No documented in this encounterRegional Medical Center05-01-2024 NoteHNO ID: [id number] Author: ?, ?, ? Service: ? Author Type: ? Type: Plan of Care Filed: 11/26/2023 17:37 Note Text: PHARMACY BEDSIDE DELIVERY SERVICE Patient Name: Chioma Alonzo The marked outpatient medications were filled and picked up at [facility] Medication List START taking these [...] or your Primary Care Provider. Miguel Flores (Clay Pigeon Loader) PAGER: [phone] November 26, 2023 5:37 [facility]05-01-2024 NoteHNO ID: [id number] Author: THELMA MARQUIS APRN.CRNA Service: Anesthesiology Author Type: Nurse Dope Heater Type: Anesthesia Procedure Notes Filed: 11/21/2023 14:23 Note Text: ANESTHESIOLOGY PROCEDURE NOTE Airway General Information Procedure Start Time/Medication Administration: 11/21/2023 2:14 PM Procedure End Time: 11/21/2023 2:22 PM Patient location during procedure: OR Timeout Performed Pre-procedure: timeout performed Patient identity confirmed: arm band, care team physician and patient Staffing Anesthesiologist: Moshe Krishnamurthy DO BACK HANGER: Thelma Marquis APRN.BACK HANGER Performed by: BACK HANGER Indications and Patient Condition Indications for airway [...] lips and teeth intact. SIGNATURE: Thelma Marquis APRN.BACK HANGER PATIENT NAME: Chioma Alonzo DATE: November 21, 2023 TIME: 2:22 PM CSN: [id number] Telephone encounter Note * Telephone Encounter - [...] surgery. Hope this helps! Augustus Rushing MD [facility]04-26-2024 Miscellaneous Notes* Telephone Encounter - [...] as scheduled? Event monitor preliminary reading in [employer] View Cardiac Outpatient Recording/Telemetry [ID [id number]] ECHO completed in [employer] Of note she also has been to the ED 2 times for her palpitations since your visit, with c/o of palpations intermittently throughout the day. she denies associated SOB or dizziness. She reports her symptoms have not changed. Thank you, Madhu Causey PA-C [facility] documented in this encounterRegional Medical Center04-25-2024 Telephone encounter Note * Telephone [...] a cardiac standpoint. Per his last OV [facility]04-25-2024 Telephone encounter Note* Telephone Encounter [...] as scheduled? Event monitor preliminary reading in [employer] [facility] Cardiac Outpatient Recording/Telemetry [ID [id number]] ECHO completed in [employer] Of note she also has been to the ED 2 times for her palpitations since your visit, with c/o of palpations intermittently throughout the day. she denies associated SOB or dizziness. She reports her symptoms have not changed. Thank you, Madhu Causey PA-C [facility]04-25-2024 History and physical note* Madhu [...] SOB. Pulse today 75, regular rhythm today [id number] Ejection Fraction - Result: 63 % [...] COVID-19 original vaccine, age 12+ yr, monovalent (10-20 Media- VoluBillNTMixRank - PURPLE TOP) 03/16/2021 Imm Admin: COVID-19 original vaccine, age 12+ yr, monovalent (10-20 Media- BIONTMixRank - PURPLE TOP) REVIEW OF SYSTEMS: positive findings are BOLD PAIN ASSESSMENT: Pain Pain Level: 5 Pain Location: Back-Lower Description: Aching Duration Units: Months Frequency: Continuous Intervention/Comfort measure: Relaxation, Heat General: No weight loss, malaise or fevers. 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 No neurological symptoms or problems. Respiratory: No history of current cough or dyspnea, or pneumonia in the past 6 weeks. No history of respiratory/pulmonary symptoms or problems. Cardiovascular: Palpitations (SVT) Negative for Recent AR, CAD, CHF, HTN Negative for chest pain, [...] 402 QTC Calculation (Bazett) 424 Calculated P Mcintosh 76 Calculated R Mcintosh 37 Calculated T Mcintosh 57 Impression NORMAL SINUS RHYTHM WITH SINUS ARRHYTHMIA POSSIBLE LEFT ATRIAL ENLARGEMENT RSR' PATTERN IN V1 SUGGESTS INCOMPLETE RIGHT BUNDLE BRANCH BLOCK BORDERLINE ECG NO PREVIOUS ECGS AVAILABLE Confirmed by JENNIFER SURESH MD ([id number]) on 10/22/2023 1:00:28 PM Most recent Echo Recent Results (from the past 02769 hour(s)) ECHO Collection Time: 11/07/23 1:59 PM [...] were present. Isolated VEs were frequent (6.9%, 15909), VE Couplets were rare (<1.0%, 21), and no VE Triplets were present. Ventricular Bigeminy and Trigeminy were present. Instructions Given to Patient: Instructions located in the after visit summary. Patient given verbal and written preop instructions and voices comprehension and compliance. SIGNATURE: Madhu Causey PA-C PATIENT NAME: Chioma Alonzo DATE: 11/15/2023 TIME: 2:43 PM [facility] History and physical note* Madhu [...] SOB. Pulse today 75, regular rhythm today [id number] Ejection Fraction - Result: 63 % [...] Prior to Admission medications as of 11/15/23 5679 Medication Sig Last Dose Taking dicyclomine (BENTYL) [...] original vaccine, age 12+ yr, monovalent (PFIZER- BIONTMixRank - PURPLE TOP) 03/16/2021 Imm Admin: COVID-19 original vaccine, age 12+ yr, monovalent (PFIZER- BIONTECH - PURPLE TOP) REVIEW OF SYSTEMS: positive findings are BOLD PAIN ASSESSMENT: Pain Pain Level: 5 Pain Location: Back-Lower Description: Aching Duration Units: Months Frequency: Continuous Intervention/Comfort measure: Relaxation, Heat General: No weight loss, malaise or fevers. 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 No neurological symptoms or problems. Respiratory: No history of current cough or dyspnea, or pneumonia in the past 6 weeks. No history of respiratory/pulmonary symptoms or problems. Cardiovascular: Palpitations (SVT) Negative for Recent AR, CAD, CHF, HTN Negative for chest pain, [...] 402 QTC Calculation (Bazett) 424 Calculated P Mcintosh 76 Calculated R Mcintosh 37 Calculated T Mcintosh 57 Impression NORMAL SINUS RHYTHM WITH SINUS ARRHYTHMIA POSSIBLE LEFT ATRIAL ENLARGEMENT RSR' PATTERN IN V1 SUGGESTS INCOMPLETE RIGHT BUNDLE BRANCH BLOCK BORDERLINE ECG NO PREVIOUS ECGS AVAILABLE Confirmed by JENNIFER SURESH MD ([id number]) on 10/22/2023 1:00:28 PM Most recent Echo Recent Results (from the past 50550 hour(s)) ECHO Collection Time: 11/07/23 1:59 PM [...] were present. Isolated VEs were frequent (6.9%, 19079), VE Couplets were rare (<1.0%, 21), and no VE Triplets were present. Ventricular Bigeminy and Trigeminy were present. Instructions Given to Patient: Instructions located in the after visit summary. Patient given verbal and written preop instructions and voices comprehension and compliance. SIGNATURE: Madhu Causey PA-C PATIENT NAME: Chioma Alonzo DATE: 11/15/2023 TIME: 2:43 PM documented in this encounterRegional Medical Center04-22-2024 Instructions* Patient Instructions* Madhu Causey PA-C - 11/12/2023 9:12 AM EDT PATIENT PREOPERATIVE INSTRUCTIONS Seema Davis MD has scheduled you for your procedure at this surgery center: [facility]: [phone] --[address] [place] [address]. Please check in on the1st floor at [...] Procedures: - YOU MUST HAVE A RESPONSIBLE ENGINEERING MGR TAKE YOU HOME. A CONSTRUCTION ESTIMATOR OR QUILL SKINNER CANNOT BE MADE A RESPONSIBLE ENGINEERING MGR. - We recommend that a responsible person stays with you overnight to take care of you. - You cannot stay in a hotel alone after outpatient surgery. You will not be permitted to have yoursurgery, if you do not have someone to take care of you. If you already have an Advance Directive, please fax a copy to [phone] or email to for it to be [...] day. Madhu Causey PA-C documented in this encounterRegional Medical Center04-15-2024 Miscellaneous Notes* Telephone Encounter - [...] she is in Bigeminy. documented in this encounterRegional Medical Center04-11-2024 Miscellaneous Notes* Telephone Encounter - [...] ongoing symptoms Staying hydrated Concerned Call CELL [phone] Leave Detailed messages * Telephone Encounter - Juanis Cabello RN - 10/30/2023 11:08 AM EDT The pt is calling. Please review the my chart message from today for an EKG attachment she sent from her ED visit last night. She went to the [facility]. Are you able to revue her [...] a message. Thank you documented in this encounterRegional Medical Center04-02-2024 Miscellaneous Notes* Telephone Encounter - Wilfredo Avila OCCA - 10/23/2023 1:51 PM EDT Received form requesting cardiac evaluation for surgical clearance from [facility] General Surgery with Dr. Seema Davis. Surgery Date: 11-21-2023 Fax to [facility] General Surgery: [phone] Rushing to review. CHATO Ramirez documented in this encounterRegional Medical Center04-02-2024 Miscellaneous Notes* Telephone Encounter - Kym Gray RN - 10/23/2023 1:[address] Sedrick Rushing's office for cardiac clearance at [phone]. Abnormal heart sounds withgallbladder consult on 10/19/23. Received confirmation. Sent to scanning documented in this encounterRegional Medical Center04-01-2024 Nurse Note* Azael Larson LPN - 10/22/2023 3:33 PM EDT EVENT MONITOR DISPOSABLE PATCH INSTRUCTIONS Patient Name: Chioma Alonzo [facility] Number: [id number] Skin prepped and cleansed with alcohol Patch secured to prepped area Monitor Activated Serial #: [id number] Patient Instructed: Prescribed order timeframe Bathing guidelines Usage of event button and diary documentation Return of monitor at the end of prescribed order Call with problems [phone] or [phone] ext. [phone] Patient expresses a good understanding of instructions Azael Larson LPN documented in this encounterRegional Medical Center04-01-2024 History of Present illness Narrative* Sedrick Rushing MD - 10/22/2023 3:00 PM EDT Images from the original note were not included. Heart and Vascular Ramey Iram Pathak Department of Cardiovascular Medicine SECTION OF REGIONAL CARDIOLOGY OUTPATIENT VISIT DATE October 21, 2023 OUTPATIENT VISIT TYPE NEW CONSULTATION PRIMARY CARE PHYSICIAN: Analia Holliday [address] [place] [address] CHIEF COMPLAINT: Palpitations HISTORY OF PRESENT ILLNESS: [...] Rash, Shortnessof Breath, Unknown, Vomiting CURRENT MEDICATIONS: ttsgxk-fkoikydw-iokxoez (CREON) 24,000-76,000 -120,000 unit delayed release capsule [...] on File Prior to Visit Medication Sig hpnqdn-rzripwpi-xeihsji (CREON) 24,000-76,000 -120,000 unit delayed release capsule [...] Sedrick Rushing MD Cardiovascular Medicine Staff [facility] [address] [place] [address] documented in this encounterRegional Medical Center04-01-2024 NoteHNO ID: [id number] Author: SEDRICK RUSHING MD Service: ? Author Type: Physician Type: Progress Notes Filed: 10/22/2023 15:17 Note Text: [facility] V[facility] R[facility]y Iram Pathak Department of Cardiovascular Medicine SECTION OF REGIONAL CARDIOLOGY OUTPATIENT VISIT DATE October 21, 2023 OUTPATIENT VISIT TYPE NEW CONSULTATION PRIMARY CARE PHYSICIAN: Analia Holliday [address] [facility] [address] CHIEF COMPLAINT: Palpitations HISTORY OF PRESENT ILLNESS: [...] Shortness of Breath, Unknown, Vomiting CURRENT MEDICATIONS: htheto-vdkjeqow-evbbili (CREON) 24,000-76,000 -120,000 unit delayed release capsule [...] on File Prior to Visit Medication Sig wrvbey-qmdrkfdp-uujswhc (CREON) 24,000-76,000 -120,000 unit delayed release capsule [...] INFORMATION: Sedrick Rushing MD Cardiovascular Medicine Staff [facility] [address] [place] [address] [facility]dfdimvhfAcmc [facility] System03-29-2024 NoteHNO ID: [id number] Author: KYM GRAY RN Service: ? Author [...] Kym Gray RN In Department: GENERAL SURGERY [facility]03-29-2024 NoteHNO ID: [id number] Author: YKM GRAY RN Service: ? Author Type: Registered [...] gallbladder EF-69%. This measurement is within normal limitsAcmc Healthcare System03-29-2024 NoteHNO ID: [id number] Author: SEEMA DAVIS MD Service: ? Author [...] Take 4 mg by mouth as needed. 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 Lives with her . [...] the date of the service which included ebux-xm-dbzt patient care, completing clinical documentation, obtaining and/or reviewing separately obtained history, performing a medically appropriate examination, counseling and educating the patient/family/caregiver, and independently interpreting results (not separately reported). Seema Davis MD .[facility]03-29-2024 NoteEducation (GABRIELLA) CINDYCHIOMA Newberry Jovana ([id number]) 2000 F Date Time Provider Department 10/19/23 KYM GRAY Reason for Visit: Education Of Patient/family [904] Primary Visit Diagnosis:Acalculous cholecystitis [K81.9] Order(s):PT ED DIGESTIVE DISEASE [4820845] Order #: [id number]: 1 During your visit today, we recorded [...] Fully Assessed Prescriptions as of 10/19/2023 - djqckg-xhxirglm-hsfaipk (CREON) 24,000-76,000 -120,000 unit delayed release capsule [...] needed. Encounter Status:Closed by KYM GRAY on 10/19/23[facility] 09-11-2023 Miscellaneous Notes* Telephone Encounter - Gisela Ponce RN - 09/11/2023 4:25 PM EST Please refer to [facility] dated 09/11/2023. Gisela Ponce RN * Telephone Encounter - Jose ManueljajaZo - 09/11/2023 3:08 PM EST Patient calling to see if she is to follow up with Dr. Menon. He did recommend surgeon consult for cholecystectomy. Patient is asking for referral Please adivse patient documented in this encounterRegional Medical Center02-15-2024 Nurse Note* Rickie Gu RN [...] None REFERRAL (RECOMMENDATION): None documented in this encounterRegional Medical Center02-15-2024 History and physical note * [...] mouth once daily. 09/05/2023 at 1000 Yes zcmldj-liyijajq-adtrxug (CREON) 24,000-76,000 -120,000 unit delayed release capsule [...] 2023 TIME: 12:20 PM documented in this encounterRegional Medical Center11-26-2023 Miscellaneous Notes* Telephone Encounter - [...] in one of her images report from [facility]. I will recommend CT-angiography to r/o gut [...] you, Gisela Ponce RN documented in this encounterRegional Medical Center11-15-2023 History and physical note * [...] her mother who works as in at [employer]. The problem started when she [...] divisum. 12/01/22 HIDA scan was done at [facility]: Normal study EF 69% US: 10/31/22: [...] with 350 mL of normal saline. 08/02/22 [facility] Gastroenterology Chioma Alonzo is a [...] Abs Lymph 1.00 - 4.00 k/uL 2.17 [place]% % 8.1 Abs [place] <0.87 k/uL 0.36 Eosin% % 5.6 Abs [...] Isabelle Menon MD, FACP documented in this encounterRegional Medical Center11-10-2023 Evaluation note* Encounter Date Diagnosis Assessment Notes Treatment Notes Treatment Clinical Notes May, Vitamin D insufficiency (ICD-10 - E55.9) [facility] Other 11-02-2023 Evaluation note* Encounter Date Diagnosis Assessment Notes Treatment Notes Treatment Clinical Notes May, Well adult exam (ICD-10 - Z00.00 ) Routine lab work ordered. She will follow up with eye doctor due to some floaters that she is having. Follow routinely with dentist and SENIOR SOFTWARE MANAGER. Specialty notes reviewed as received. Patient is [...] Lexapro 10 mg daily. Will continue this. [facility] Other 10-31-2023 Instructions* Patient Instructions* Dara Butler Jr., DO - 05/22/2023 11:39 AM EDT Start amitriptyline Keep appt with Dr. Menon for pancreatic / biliary clinic documented in this encounterRegional Medical Center10-31-2023 History of Present illness Narrative* [...] last colonoscopy was 8 months ago in [place]. Past GI workup 05/08/23 ER visit notes [...] Office Visit [facility] [address] [place] [address] Kyree Stinson MD Abnormal flushing and sweating [...] per patient. She sees a specialist to [facility] doctor Butler for GI- currently awaiting [...] dicyclomine 12/01/22 HIDA scan was done at [facility]: Normal study EF 69% US: 10/31/22: [...] with 350 mL of normal saline. 08/02/22 [facility] Gastroenterology Chioma Alonzo is a [...] (PCR) (04/02/2023 10:00 AM EDT) Results - [facility] GI PANEL (PCR) (04/02/2023 10:00 AM [...] Abs Lymph 1.00 - 4.00 k/uL 2.17 [place]% % 8.1 Abs [place] <0.87 k/uL 0.36 Eosin% % 5.6 Abs [...] BY MOUTH THREE TIMES DAILY WITH MEALS bumwpt-ejjpxlcv-khniftx (ZENPEP) 40,000-126,000- 168,000 unit delayed release capsule [...] studies Dara Butler Jr. documented in this encounterRegional Medical Center10-12-2023 Miscellaneous Notes* Telephone Encounter - [...] Dara Butler Jr., DO documented in this encounterRegional Medical Center09-23-2023 Miscellaneous Notes* Telephone Encounter - Analia Estevez RN - 04/14/2023 9:23 AM EDT Patient has viewed results per [employer]. Analia Estevez RN * Telephone Encounter - Analia Estevez RN - 04/14/2023 9:23 AM EDT ----- Message from Dara Butler Jr., DO sent at 04/13/2023 4:04 PM EDT ----- MRI negative for pancreatitis and anatomic pancreatic abnormalities. Dara Butler Jr., DO documented in this encounterRegional Medical Center09-22-2023 Miscellaneous Notes* [facility] - Yessi Adkins, depilatory painter - 04/13/2023 2:40 PM EDT Radiology Service [...] 2023 TIME: 3:13 PM documented in this encounterRegional Medical Center09-22-2023 Progress note* [facility] - [...] DATE: April 13, 2023 TIME: 3:13 PM [facility]09-08-2023 Miscellaneous Notes* Telephone Encounter - Analia Estevez RN - 03/30/2023 10:33 AM EDT Patient has viewed results per [employer]. Analia Estevez RN * Telephone Encounter - [...] CDIFF. She had this testing done through [facility]. She is working on getting faxed results to office. Pt states she feels fine, no symptoms but would like to follow up with nurse. Please advise Patient has been identified by name and birthdate. Duration of symptoms: N/A Person calling: self Call patient at: at home [phone] (home) [phone] (cell) Was an appointment scheduled: No Closing statement: Results or non-symptom based questions: Thank you for calling [facility], your call will be returned within the next business day. Eva Wynne documented in this encounterRegional Medical Center09-05-2023 Evaluation note* Encounter Date Diagnosis Assessment Notes Treatment Notes Treatment Clinical Notes Mar, Diarrhea (ICD-10 - R19.7) [facility] Other 09-01-2023 Evaluation note* Encounter Date Diagnosis Assessment Notes Treatment Notes Treatment Clinical Notes Mar, C. difficile diarrhea (ICD-10 - A04.72) [facility] Other 09-01-2023 Miscellaneous Notes* Telephone Encounter - Bryson Arredondo MA - 03/23/2023 7:59 AM EDT Pt was notified via . * Telephone Encounter - Nae Ibarra MD - 03/22/2023 9:36 PM EDT Please Call patient if MyChart note not read to review results/released to My Chart if tests completed at [facility]: Improved/Normal labs and no inflammation. Take [...] hepatitis panel, quantiferon tb; documented in this encounterRegional Medical Center08-30-2023 Miscellaneous Notes* Telephone Encounter - Analia Estevez RN - 03/21/2023 11:02 AM EDT Results were viewed by patient per [employer]. Analia Estevez RN * Telephone Encounter - Analia Estevez RN - 03/21/2023 11:00 AM EDT ----- Message from Dara Butler Jr., DO sent at 03/21/2023 7:46 AM EDT ----- Labs essentially unremarkable including negative celiac Dara Butler Jr., DO documented in this encounterRegional Medical Center08-29-2023 Evaluation note* Encounter Date Diagnosis Assessment Notes Treatment Notes Treatment Clinical Notes Feb, Diarrhea (ICD-10 - R19.7) [facility] Other 08-25-2023 Miscellaneous Notes* Telephone Encounter - Analia Estevez RN - 03/16/2023 12:38 PM EDT Per our discussion please review and sign orders for MRI per out discussion based off mychart message per patient. Analia Estevez RN documented in this encounterRegional Medical Center07-18-2023 Instructions* Patient Instructions* Dara Butler Jr., DO - 02/06/2023 10:35 AM EDT Check labs Start Levbid Start Zenpep Stop dicyclomine documented in this encounterRegional Medical Center07-18-2023 History of Present illness Narrative* [...] REFLEX Dara Butler Jr. documented in this encounterRegional Medical Center06-05-2023 Miscellaneous Notes* Telephone Encounter - Ana Eckert - 12/25/2022 10:22 AM EDT Spoke with patient Scheduled Consult to GI for first avail at [place] in January Did not schedule Med Gen Consult. Still pending review- patient said she will schedule when she sees Dr Luke Eckert December 25, 2022 10:27 AM * Telephone Encounter - Bryson Arredondo MA - 12/25/2022 9:22 AM EDT Pt has been notified via [employer] * Telephone Encounter - Nae Ibarra MD - 12/23/2022 12:53 AM EDT Please call patient. Thank you for the update and your kind words. Sorry to hear about your discomfort. Placed a consult to medical genetics and GI as requested. May schedule at your convenience. Hope you feel better soon! Warm regards, :) documented in this encounterRegional Medical Center05-03-2023 Evaluation note* Encounter Date Diagnosis [...] - K58.0)Recommended Benefiber Follow up 2 months [facility] Other 01-01-2023 History general Narrative - Reported* Type Description Date Medical History Esophageal reflux Medical HistoryanxietySurgical Historywisdom teeth extractSurgical HistoryFMT 07/2022Hospitalization Historypancreatitis [facility] Other 10-06-2022 Evaluation note* Encounter Date Diagnosis Assessment Notes Treatment Notes Treatment Clinical Notes Apr, Irritable bowel syndrome with di arrhea (ICD-10 - K58.0) PATIENT DOES HAVE 3 BOWEL MOVEMENTS A DAY SOMETIMES 1 Apr,2RUQ pain (ICD-10 - R10.11) [facility] Other 08-24-2022 History of Present illness Narrative* Mckenzie Kincaid RN - 03/15/2022 3:30 PM EDT Patient verified full name and * Irena Diallo MD - 03/15/2022 3:30 PM EDT GI CLINIC PROGRESS NOTE PATIENT NAME: Chioma Henao ATTENDING: Irena Diallo MD : 2000 AGE: 21 y.o. GENDER: female LOCATION: GENERAL AND GASTROINTESTINAL SURGERY [facility]PAT[facility] [place] DATE OF VISIT: 03/15/2022 REFERRING MD: Jaya [...] diff infection, s/p treatment with fidaxomicin and DOCUMENTATION CONSULTANT. Symptoms persist, possible post infection IBS vs recurrent c. Diffinfection. Active marijuana user, smokes viper as well. DISPOSITION AND PLAN: 1. Will obtain c diff toxin Ag 2. Stool enteric panel 3. [place] of [place] 4. Imodium prn (after infection is ruled out) 5. Marijuana and viper abstinence counseling provided. Face to face interaction: 25 Time to complete visit: 60 Irena Diallo MD Extrusion Supervisor Division of Gastroenterology, Hepatology and Nutrition Department of Internal Medicine [facility] documented in this encounterOSU [facility] Instructions* Patient Instructions* Irena Diallo MD - 03/15/2022 3:30 PM EDT C diff toxin Ag Enteric stool panel Dicyclomine Imodium prn if infection is ruled out documented in this encounterU [facility]03-08-2022 Evaluation note * Encounter Date Diagnosis Assessment Notes Treatment Notes Treatment Clinical Notes Sep, C. difficile diarrhea (ICD-10 - A04.72) START DIFICID DIRECTED REFERRAL TO [facility] FOR RECURRET C.DIFF [facility] Other 11-30-2021 NoteChief Complaint consultation for nausea [...] Family History Cancer: Father. Stroke: Mother.[facility] HospitalComment on above:Result Comment: Electronically Signed By: KALEB MACKEY, Ana Lan\Date and Time Signed: 06/21/21 20:44 [id number] Evaluation note* Encounter Date Diagnosis Assessment Notes [...] care instructions given in writting by [facility] Care At Home document. [employer] Other 05-18-2021 NoteChief Complaint Consultation for Colonoscopy [...] Use:., 12/07/2020 Family History Cancer: Father. Stroke: Mother.[facility] HospitalComment on above:Result Comment: Electronically Signed By: KALEB MACKEY, Ana Lan\Date and Time Signed: 12/07/20 17:18 [id number] Miscellaneous Notes* Result Encounter Note - Rickie Naqvi DO - 12/02/2020 10:00 AM EDT CTA head and neck are both normal. No abnormalities noted. documented in this encounterUniversity [facility]als [facility] noteNo [facility]Nom[facility] Other Evaluation note* Diagnosis Diarrhea, unspecified type- Primary documented in this encounter [facility]* Diagnosis Generalized abdominal pain- Primary Abdominal pain, generalized documented in this encounter [facility] note* Diagnosis Chronic pancreatitis, unspecified pancreatitis type (HCC)- Primary Generalized abdominal pain Abdominal pain, generalized Intestinal malabsorption, unspecified type documented in this encounter [facility] note* Diagnosis Chronic recurrent pancreatitis (HCC)- Primary Chronic pancreatitis documented in this encounter [facility] note* Diagnosis Chronic pancreatitis, unspecified pancreatitis type (HCC)- Primary Generalized abdominal pain Abdominal pain, generalized Irritable bowel syndrome with diarrhea Irritable bowel syndrome History of Clostridioides difficile colitis documented in this encounter [facility] note* Diagnosis Family history of ischemic heart disease and other diseases of the circulatory system History of acute pancreatitis Personal history of other diseases of digestive system Carotid artery aneurysm (HCC) Aneurysm of artery of neck documented in this encounter [facility] noteNo assessment information [facility] Work Phone: Evaluation note* Diagnosis RUQ pain- Primary Abdominal pain, right upper quadrant History of pancreatitis Personal history of other diseases of digestive system Nausea Nausea alone Diarrhea, unspecified type History of Clostridium difficile infection Personal history of other infectious and parasitic disease documented in this encounter [facility] note* Diagnosis Generalized abdominal pain- Primary Abdominal pain, generalized RUQ pain Abdominal pain, right upper quadrant Chronic recurrent pancreatitis (HCC) Chronic pancreatitis Diarrhea, unspecified type documented in this encounter [facility] note* Diagnosis Chronic recurrent pancreatitis (HCC) Chronic pancreatitis documented in this encounter [facility] Center[facility] note* Diagnosis Palpitations- Primary Other supraventricular tachycardia (HCC) Cholecystitis Cholecystitis, unspecified documented [facility] this encounter [facility]* Diagnosis Pre-op examination- Primary Preoperative examination, unspecified Palpitations Organic anxiety syndrome Anxiety disorder in conditions classified elsewhere Cholecystitis Cholecystitis, unspecified documented in this encounter [facility]* Diagnosis Onset Date Resolution Status Esophageal reflux acuteGAD (generalized anxiety disorder)acuteIrritable bowel syndrome with diarrheaacuteVitamin D insufficiencyacute [facility] Work Phone: Evaluation note* Diagnosis S/P gastrointestinal surgery, follow-up exam- Primary Follow-up examination, following other surgery S/P laparoscopic cholecystectomy Other postprocedural status documented in this encounter [facility]* Diagnosis Generalized abdominal pain- Primary Abdominal pain, generalized History of acute pancreatitis Personal history of other diseases of digestive system documented in this encounter [facility]* Diagnosis Upper abdominal pain- Primary Abdominal pain, other specified site Dyspepsia and disorder of function of stomach Dyspepsia and other specified disorders of function of stomach Dyspepsia Dyspepsia and other specified disorders of function of stomach documented in this encounter [facility]* Diagnosis Upper abdominal pain Abdominal pain, other specified site Dyspepsia and disorder of function of stomach Dyspepsia and other specified disorders of function of stomach Dyspepsia Dyspepsia and other specified disorders of function of stomach documented in this encounter [facility]* Diagnosis Upper abdominal pain Abdominal pain, other specified site Dyspepsia and disorder of function of stomach Dyspepsia and other specified disorders of function of stomach documented in this encounter [facility]* Diagnosis Epigastric pain- Primary Abdominal pain, epigastric documented in this encounter [facility]* Diagnosis Onset Date Resolution Status LOCO (generalized anxiety disorder) acute [facility] Work Phone: evaluation note* Diagnosis APPOINTMENT CANCELLED- Primary documented in this encounter [facility]* Diagnosis Chronic recurrent pancreatitis (HCC) Chronic pancreatitis documented in this encounter [facility] Center[facility] note* Diagnosis Diarrhea, unspecified type- Primary documented in this encounter [facility] note* Diagnosis Right sided abdominal pain- Primary Abdominal pain, unspecified site Neuralgia and neuritis Neuralgia, neuritis, and radiculitis, unspecified Celiac artery compression syndrome (HCC) Celiac artery compression syndrome documented in this encounter [facility]* Diagnosis Right sided abdominal pain- Primary Abdominal pain, unspecified site Celiac artery compression syndrome (HCC) Celiac artery compression syndrome Neuralgia and neuritis Neuralgia, neuritis, and radiculitis, unspecified Right sided abdominal pain Abdominal pain, unspecified site Celiac artery compression syndrome (HCC) Celiac artery compression syndrome Neuralgia and neuritis Neuralgia, neuritis, and radiculitis, unspecified documented in this encounter [facility]* Diagnosis Neoplasm of unspecified behavior of bone, soft tissue, and skin- Primary [facility] encounter [facility]* Diagnosis Median arcuate ligament syndrome (CMS-HCC)- Primary Celiac artery compression syndrome documented in this encounter [facility] Work Phone: Evaluation note* Diagnosis Epigastric pain- Primary Abdominal pain, epigastric Median arcuate ligament syndrome (CMS-HCC) Celiac artery compression syndrome Difficulty breathing Other dyspnea and respiratory abnormality documented in this encounter [facility] Work Phone: Evaluation note* Diagnosis Follow-up visit after miscarriage documented in this encounter [facility]* Diagnosis Median arcuate ligament syndrome (CMS-HCC) Celiac artery compression syndrome documented in this encounter [facility] Work Phone: Evaluation note* Diagnosis [...] and radiculitis, unspecified documented in this encounter [facility]Eval[facility] note* Diagnosis Generalized abdominal pain Abdominal pain, generalized Change in bowel habits Other symptoms involving digestive system documented in this encounter [facility] note* Diagnosis Status post laparoscopic appendectomy- Primary Other postprocedural status [facility] Diagnosis Onset Date Resolution Status Admit Date Diarrhea acuteApril 2024 9:52am [facility] Work Phone: Evaluation note* Diagnosis Encounter for infertility PCOS (polycystic ovarian syndrome) Polycystic ovaries Abnormal uterine bleeding (AUB) documented in this encounter [facility]* Diagnosis 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 documented in this encounter [facility] Work Phone: History general Narrative - Reported* Type Description Date Medical History Esophageal reflux Medical HistoryanxietySurgical Historywisdom teeth extractHospitalization HistorypanPureForge Other Hismxiw general Narrative - Reported* Type Description Date Medical History Esophageal reflux Medical HistoryANXIETYMedical HistoryPANCREATITISMedical HistoryC DIFFMedical HistoryCOLON INFLAMMATIONMedical History2 FECAL TRANSPLANTSMedical History ENDOMETRIOSISSurgical Historywisdom teeth extractSurgical YewsdyxKXT26/2023 Surgical HistoryLAPROSOCOPY FOR ENDOMETRIOSISHospitalization Historyber[facility] centerPureForge Other InstructionsNot on filedocumented in this encounter [facility] [employer] SystemInstructionsNot on filedocumented in this encounter [facility] SystemReason for referral (narrative)* Diagnostic Procedure Only (Routine) - ClosedSpecialtyDiagnoses / ProceduresReferred By Contact Referred To ContactCT IMAGING Diagnoses Carotid artery aneurysm (HCC) History of acute pancreatitis Procedures CTA NECK W IVCON CTA NECK, W/WO C, W/3D Rickie Naqvi DO [address] [place] [address] Ct Imaging [place] [address] Referral IDStatusReasonStart DateExpiration DateVisits RequestedVisits [id number] Auto-Generated Referral / * Diagnostic Procedure Only (Routine) - ClosedSpecialtyDiagnoses / Procedures Referred By ContactReferred To ContactCT IMAGING Diagnoses Family history of ischemic heart disease and other diseases of the circulatory system History of acute pancreatitis Procedures CTA HEAD WO/W IVCON CTA HEAD WWO C, W/3D Rickie Naqvi DO [address] [place] [address] [place] [address] Referral IDStatusReasonStart DateExpiration DateVisits RequestedVisits [id number] Auto-Generated Referral / [facility] for referral (narrative)* Outpatient Procedure (Routine) - ClosedSpecialtyDiagnoses / ProceduresReferred By ContactReferred To Contact [facility] [place] Diagnoses Chronic recurrent pancreatitis (HCC) Procedures EGD - THERAPEUTIC, EUS, OR TUBE INTERVENTIONS EDG US EXAM SURGICAL ALTER STOM DUODENUM/[place] [address] [place] [address] [facility] Disease [place] [id number] Referral IDStatusReasonStcedar crest DateExpiration DateVisits RequestedVisits [id number] Auto-Generated Referral [facility] for referral (narrative)* Outpatient Procedure (Routine) - AuthorizedSpecialtyDiagnoses / ProceduresReferred By ContactReferred To ContactUC MEDICAL CENTERRT [facility] [place] Diagnoses Other supraventricular tachycardia (HCC) Palpitations Procedures ECHO ECHO TTHRC R-T 2D W/WOM-MODE COMPL SPEC&[place] [address] [facility] [place] [address] Heart [facility] [place] [address] [place] [address] Referral IDStatusReasonStcedar crest DateExpiration DateVisits RequestedVisits [id number] Auto-Generated Referral / [facility] for referral (narrative)* Diagnostic Procedure Only (Routine) - AuthorizedSpecialtyDiagnoses / ProceduresReferred By Contact Referred To ContactMOLECULAR & FUNCTIONAL IMAGING Diagnoses Upper abdominal pain Dyspepsia and disorder of function of stomach Dyspepsia Procedures NM GASTRIC EMPTYING SOLID GASTRIC EMPTYING STUDY Dara Butler Jr., DO [address] [place] [address] Molecular & Functional Imaging [address] [place] [address] Referral IDStatusReasonStart DateExpiration DateVisits RequestedVisits [id number] Auto-Generated Referral * Diagnostic Procedure Only (Routine) - Pending ReviewSpecialtyDiagnoses / ProceduresReferred By ContactReferred To ContactXR IMAGING Diagnoses Upper abdominal pain Dyspepsia and disorder of function of stomach Procedures XR UPPER GI SINGLE CONTRAST RADIOLOGIC EXAM UPR GI TRC SINGLE CONTRAST STUDY Dara Butler Jr., DO [address] [place] [address] Xr [facility] [place] [address] Referral IDStatusReasonStcedar crest DateExpiration DateVisits RequestedVisits [id number] Review Auto-Generated Referral [facility] for referral (narrative)* Diagnostic Procedure Only (Routine) - ClosedSpecialtyDiagnoses / ProceduresReferred By ContactReferred To ContactMOLECULAR & FUNCTIONAL IMAGING Diagnoses Upper abdominal pain Dyspepsia and disorder of function of stomach Dyspepsia Procedures NM GASTRIC EMPTYING SOLID GASTRIC EMPTYING STUDY Dara Butler Jr., DO [address] [place] [address] Molecular & Functional Imaging [address] [place], [place] [id number] Referral IDStatusReasonStart DateExpiration DateVisits RequestedVisits [id number] Auto-Generated Referral [facility] for referral (narrative)* Diagnostic Procedure Only (Routine) - ClosedSpecialtyDiagnoses / ProceduresReferred By ContactReferred To ContactXR IMAGING Diagnoses Upper abdominal pain Dyspepsia and disorder of function of stomach Procedures XR UPPER GI SINGLE CONTRAST RADIOLOGIC EXAM UPR GI TRC SINGLE CONTRAST STUDY Dara Butler Jr., DO [address] [place] [address] [place] [address] Referral IDStatusReasonMarkesan DateExpiration DateVisits RequestedVisits [id number] Auto-Generated Referral / [facility] for referral (narrative)* Consultation (Routine) - AuthorizedSpecialtyDiagnoses / ProceduresReferred By ContactReferred To ContactPain Medicine Diagnoses Median arcuate ligament syndrome (CMS-[place]) [place] [address] [place] DIGITAL MEDIAe Bray[place] [address] [place] [address] Paula Pretty MD [address] [place] [address] [place] [address] Referral IDStatusReasonStcedar crest DateExpiration DateVisits RequestedVisits [id number] Specialty Services Required * Consultation (Routine) - AuthorizedSpecialtyDiagnoses / ProceduresReferred By ContactReferred To ContactGeneral Surgery Diagnoses Median arcuate ligament syndrome (CMS-[place]CC) [place] [address] [place] [address] Whitney Ambriz MD MPH [address] [facility] [place], [place] [address] [place] [address] Referral IDStatusReasonStart DateExpiration DateVisits RequestedVisits [id number] Specialty Services Required / [facility] Work Phone: Remggg for visit Narrative* Diagnostic Procedure Only (Routine) - ClosedSpecialtyDiagnoses / ProceduresReferred By ContactReferred To ContactCT IMAGING Diagnoses Carotid artery aneurysm (HCC) History of acute pancreatitis Procedures CTA NECK W IVCON CTA NECK, W/WO C, W/3D Rickie Naqvi DO [address] [place] [address] Ct Imaging [facility] Referral IDStatusReasonStcedar crest DateExpiration DateVisits RequestedVisits [id number] Auto-Generated Referral / [facility] for visit Narrative* Outpatient Procedure (Routine) - ClosedSpecialtyDiagnoses / ProceduresReferred By ContactReferred To Contact [facility] Diagnoses Chronic recurrent pancreatitis (HCC) Procedures EGD - THERAPEUTIC, EUS, OR TUBE INTERVENTIONS EDG US EXAM SURGICAL ALTER STOM DUODENUM/[place] [address] [place] [address] [facility] [place] [address] [place] [address] Referral IDStatusReasonStart DateExpiration DateVisits RequestedVisits [id number] Auto-Generated Referral / [facility] for visit Narrative* Diagnostic Procedure Only (Routine) - ClosedSpecialtyDiagnoses / ProceduresReferred By ContactReferred To Contact MOLECULAR & FUNCTIONAL IMAGING Diagnoses Upper abdominal pain Dyspepsia and disorder of function of stomach Dyspepsia Procedures NM GASTRIC EMPTYING SOLID GASTRIC EMPTYING STUDY Dara uBtler Jr., DO [address] [place] [address] Molecular & Functional Imaging [address] [place] [address] Referral IDStatusReasonStart DateExpiration DateVisits RequestedVisits [id number] Auto-Generated Referral / [facility] for visit Narrative* Diagnostic Procedure Only (Routine) - ClosedSpecialtyDiagnoses / ProceduresReferred By ContactReferred To Contact XR IMAGING Diagnoses Upper abdominal pain Dyspepsia and disorder of function of stomach Procedures XR UPPER GI SINGLE CONTRAST RADIOLOGIC EXAM UPR GI TRC SINGLE CONTRAST STUDY Dara Butler Jr., DO [address] [place] [address] [place] [address] Referral IDStatusReasonStcedar crest DateExpiration DateVisits RequestedVisits [id number] Auto-Generated Referral / [facility] for visit Narrative* Consultation (Routine) - Authorized SpecialtyDiagnoses / ProceduresReferred By ContactReferred To ContactGeneral Surgery Diagnoses Median arcuate ligament syndrome (CMS-[place]) [place] [address] [address] Whitney Ambriz MD MPH [address] [facility] [place], [place] [address] [place] [address] Referral IDStatusReasonStcedar crest DateExpiration DateVisits RequestedVisits [id number] Specialty Services Required / [facility] Work Phone: [facility] for visit Narrative* Outpatient Procedure (Routine) - ClosedSpecialtyDiagnoses / ProceduresReferred By ContactReferred To ContactDIGESTIVE DISEASE INSTITUTE Diagnoses Generalized abdominal pain Change in bowel habits Procedures COLONOSCOPY DIAGNOSTIC COLONOSCOPY FLX DX W/COLLJ SPEC WHEN PFDara Hagan Jr., DO [address] [place] [address] Phone: tel: fax: [facility] [address] [place] [address] Referral IDStatusReSt. Vincent's [facility] DateExpiration DateVisits RequestedVisits [id number] Auto-Generated Referral [facility] for visit Narrative* Endoscopy (Routine) - Authorized SpecialtyDiagnoses / ProceduresReferred By ContactReferred To Contact Gastroenterology Diagnoses Median arcuate ligament syndrome Procedures Esophagogastroduodenoscopy (EGD) [place] ESOPHAGOGASTRODUODENOSCOPY TRANSORAL DIAGNOSTIC [place] EGD TRANSORAL BIOPSY SINGLE/MULTIPLE Whitney Ambriz MD MPH [address] [facility] [place] [address] Phone: tel: fax: Referral IDStatusReasonStcedar crest DateExpiration DateVisits RequestedVisits [id number]/15/20248/15/202511 [facility] Work Phone: Summary Purpose Family History [...] TRANSORAL BIOPSY SINGLE/MULTIPLE Whitney Ambriz [place] MPH [address] [address] [facility] [place] [address] Referral IDStatusReasonStart DateExpiration DateVisits RequestedVisits [id number]/15/20248/935136OwtybivjiPdeptoqdw / Procedures Referred By ContactReferred To ContactCT IMAGING Diagnoses Generalized abdominal pain RUQ pain Chronic recurrent pancreatitis (HCC) Diarrhea, unspecified type Procedures CTA ABD/PEL W IVCON CT ANGIO ABD&PLVIS CNTRST MTRL W/[place] [address] [place] [address] [place] [address] Referral IDStatusReasonStart DateExpiration DateVisits RequestedVisits [id number] Auto-Generated Referral [id number] / ProceduresReferred By ContactReferred To ContactMR IMAGING Diagnoses Chronic recurrent pancreatitis (HCC) Procedures MRI ABDOMEN WO/W IVCON MRI ABDOMEN W/O & W/CONTRAST MATERIAL Dara Butler Jr., DO [address] [facility] [place] [address] [place] [address] Referral IDStatusReasonMarkesan DateExpiration DateVisits RequestedVisits [id number] Auto-Generated Referral /[id number] / ProceduresReferred By ContactReferred To ContactGastroenterology Diagnoses Generalized abdominal pain Procedures CONSULT TO GASTROENTEROLOGY OFFICE/OUTPATIENT [facility] 60-74 MINUTES Nae Ibarra MD [address] [place] [address] Referral IDStatusReasonStart DateExpiration DateVisits RequestedVisits [id number] PCP Requested Referral /[id number] / ProceduresReferred By ContactReferred To Contact Diagnoses Generalized abdominal pain Procedures CONSULT TO MEDICAL GENETICS - GENERAL OFFICE/OUTPATIENT [facility] 60-74 MINUTES MEDICAL GENETICS COUNSELING EACH 30 MINUTES Nae Ibarra MD [address] [address] [facility] [address] [place] [address] Referral IDStatusReasonStart DateExpiration DateVisits RequestedVisits [id number] Review PCP Requested Referral Auto-Generated Referral / Reason Please schedule cons ult to evaluate and treat at [facility] (in [place]) for recurrent c.diff infection. (for possible fecal [...] section and content) DATE CREATED AUTHOR 09/15/2021 [facility] DATE CREATED AUTHOR AUTHOR'S ORGANIZ ATION 02/16/2022 [facility] DATE CREATED AUTHOR AUTHOR'S ORGANIZ ATION 03/18/2022 [facility] DATE CREATED AUTHOR AUTHOR'S ORGANIZ ATION 12/04/2022 [facility] DATE CREATED AUTHOR AUTHOR'S ORGANIZ ATION 04/26/2023 [facility] DATE CREATED AUTHOR AUTHOR'S ORGANIZ ATION 02/13/2024 [facility] DATE CREATED AUTHOR AUTHOR'S ORGANIZ ATION 07/17/2024 [facility] DATE CREATED AUTHOR AUTHOR'S ORGANIZ ATION 08/01/2024 [facility] DATE CREATED AUTHOR AUTHOR'S ORGANIZ ATION 08/06/2024 [facility] DATE CREATED AUTHOR AUTHOR'S ORGANIZ ATION 09/07/2024 [facility] DATE CREATED AUTHOR AUTHOR'S ORGANIZ ATION 03/25/2025 [facility] EPIC REASON FOR VISIT (unrecogniz ed section and content) ReasonCommentsNew PatientSpecialtyDiagnoses / ProceduresReferred By Contact Referred To ContactGastroenterology Diagnoses C. difficile diarrhea Jaya Parikh MD [address] [place] [address] Referral IDStatusReasonStart DateExpiration DateVisits RequestedVisits [id number] Review/[id number] Pain SpecialtyDiagnoses / ProceduresReferred By ContactReferred To Contact Gastroenterology Diagnoses Generalized abdominal pain Procedures CONSULT TO GASTROENTEROLOGY OFFICE/OUTPATIENT [facility] 60-74 MINUTES Nae Ibarra MD [address] [place] [address] Referral IDStatusReasonStart DateExpiration DateVisits RequestedVisits [id number] PCP Requested Referral /[id number]agfZkwbcohyHZTI REMINDERAPPT REMINDER CALL, LEFT MESSAGE REGARDING DIRECTIONS TO OFFICE AND # IN NEED TO CANCELReason CommentsFollow UpReasonCommentsRecheckReasonCommentsScansReasonCommentsPatient UpdateReasonCommentsConsultSpecialtyDiagnoses / ProceduresReferred By Contact Referred To ContactCardiology Diagnoses Other supraventricular tachycardia (HCC) Procedures CONSULT TO CARDIOLOGY OFFICE/OUTPATIENT [facility] 60 [place] [address] [place] [id number] Referral IDStatusReasonStart DateExpiration DateVisits RequestedVisits [id number] PCP Requested Referral /[id number] ClearanceReasonCommentsPalpitationsED pt updateReasonCommentsPatient QuestionPVCs and Frequent ED visits.Reason CommentsAnesthesia ConsultCholecystitisReasonCommentsPre-Op ExamReasonComments Post Op Follow Up11/21/23 lap choleReasonOnset DateCommentsRefill Request 4ReasonCommentsRadiology NMReasonCommentsConsultReasonCommentsBack Pain SpecialtyDiagnoses / ProceduresReferred By ContactReferred To ContactMR IMAGING Diagnoses Chronic recurrent pancreatitis (HCC) Procedures MRI ABDOMEN WO/W IVCON MRI ABDOMEN W/O & W/CONTRAST MATERIAL Dara Butler Jr., DO [address] [place] [address] Mr Imaging [facility] Referral IDStatusReasonStcedar crest DateExpiration DateVisits RequestedVisits [id number] Auto-Generated Referral /[id number]uCk need for OV with Dr. De La Paz CommentsSchedule InjectionReasonCommentsAppointmentReasonCommentsSuspicious Skin LesionReasonCommentsNew Patient VisitC/o of stomach pain, nausea and diarrhea since age 15. Is able to eat a full meal.ReasonCommentsfollow up miscarriage SpecialtyDiagnoses / ProceduresReferred By ContactReferred To Contact Gastroenterology Diagnoses Median arcuate ligament syndrome (CMS-HCC) Procedures Esophagogastroduodenoscopy (EGD) [place] ESOPHAGOGASTRODUODENOSCOPY TRANSORAL DIAGNOSTIC [place] EGD TRANSORAL BIOPSY SINGLE/MULTIPLE Whitney Ambriz [place] MPH [address] [address] [facility] [place] [address] Referral IDStatusReasonStart DateExpiration DateVisits RequestedVisits [id number]/15/20248/15/293459IiwddbIzqewpbcRdkvej UpFollow-up on everything.ReasonCommentsPost-opPost op laparoscopic append[facility]mentsInfertilityPt present today to discuss fertility Source Comments (unrecognize d section and content) In the event this informatio n is protected by the Federal Confidentiality of Alcohol and Drug Abuse Patient Records regulations: The Federal rules restrict any use of the information to criminally investigate or prosecute any alcohol or drug abuse patient.[facility] Medical CenterIn the event this information is protected by the Federal Confidentiality of Alcohol and Drug Abuse Patient Records regulations: The Federal rules restrict any use of the information to criminally investigate or prosecute any alcohol or drug abuse patient.[facility] Medical CenterIn the event this information is protected by the Federal Confidentiality of Alcohol and Drug Abuse Patient Records regulations: The Federal rules restrict any use of the information to criminally investigate or prosecute any alcohol or drug abuse patient.[facility] CenterIn the event this information is protected by the Federal Confidentiality of Alcohol and Drug Abuse Patient Records regulations: The Federal rules restrict any use of the information to criminally investigate or prosecute any alcohol or drug abuse patient.[facility] Medical CenterIn the event this information is protected by the Federal Confidentiality of Alcohol and Drug Abuse Patient Records regulations: The Federal rules restrict any use of the information to criminally investigate or prosecute any alcohol or drug abuse patient.[facility] Medical CenterIn the event this information is protected by the Federal Confidentiality of Alcohol and Drug Abuse Patient Records regulations: The Federal rules restrict any use of the information to criminally investigate or prosecute any alcohol or drug abuse patient.[facility] CenterIn the event this information is protected by the Federal Confidentiality of Alcohol and Drug Abuse Patient Records regulations: The Federal rules restrict any use of the information to criminally investigate or prosecute any alcohol or drug abuse patient.[facility] Medical CenterIn the event this information is protected by the Federal Confidentiality of Alcohol and Drug Abuse Patient Records regulations: The Federal rules restrict any use of the information to criminally investigate or prosecute any alcohol or drug abuse patient.[facility] Medical CenterIn the event this information is protected by the Federal Confidentiality of Alcohol and Drug Abuse Patient Records regulations: The Federal rules restrict any use of the information to criminally investigate or prosecute any alcohol or drug abuse patient.[facility] Medical CenterIn the event this information is protected by the Federal Confidentiality of Alcohol and Drug Abuse Patient Records regulations: The Federal rules restrict any use of the information to criminally investigate or prosecute any alcohol or drug abuse patient.[facility] Medical CenterIn the event this information is protected by the Federal Confidentiality of Alcohol and Drug Abuse Patient Records regulations: The Federal rules restrict any use of the information to criminally investigate or prosecute any alcohol or drug abuse patient.[facility] Medical CenterIn the event this information is protected by the Federal Confidentiality of Alcohol and Drug Abuse Patient Records regulations: The Federal rules restrict any use of the information to criminally investigate or prosecute any alcohol or drug abuse patient.[facility] Medical CenterIn the event this information is protected by the Federal Confidentiality of Alcohol and Drug Abuse Patient Records regulations: The Federal rules restrict any use of the information to criminally investigate or prosecute any alcohol or drug abuse patient.[facility] CenterIn the event this information is protected by the Federal Confidentiality of Alcohol and Drug Abuse Patient Records regulations: The Federal rules restrict any use of the information to criminally investigate or prosecute any alcohol or drug abuse patient.[facility] CenterIn the event this information is protected by the Federal Confidentiality of Alcohol and Drug Abuse Patient Records regulations: The Federal rules restrict any use of the information to criminally investigate or prosecute any alcohol or drug abuse patient.[facility] Medical CenterIn the event this information is protected by the Federal Confidentiality of Alcohol and Drug Abuse Patient Records regulations: The Federal rules restrict any use of the information to criminally investigate or prosecute any alcohol or drug abuse patient.[facility] Medical CenterIn the event this information is protected by the Federal Confidentiality of Alcohol and Drug Abuse Patient Records regulations: The Federal rules restrict any use of the information to criminally investigate or prosecute any alcohol or drug abuse patient.[facility] Medical CenterIn the event this information is protected by the Federal Confidentiality of Alcohol and Drug Abuse Patient Records regulations: The Federal rules restrict any use of the information to criminally investigate or prosecute any alcohol or drug abuse patient.[facility] Medical CenterIn the event this information is protected by the Federal Confidentiality of Alcohol and Drug Abuse Patient Records regulations: The Federal rules restrict any use of the information to criminally investigate or prosecute any alcohol or drug abuse patient.[facility] CenterIn the event this information is protected by the Federal Confidentiality of Alcohol and Drug Abuse Patient Records regulations: The Federal rules restrict any use of the information to criminally investigate or prosecute any alcohol or drug abuse patient.[facility] CenterIn the event this information is protected by the Federal Confidentiality of Alcohol and Drug Abuse Patient Records regulations: The Federal rules restrict any use of the information to criminally investigate or prosecute any alcohol or drug abuse patient.[facility] Medical CenterIn the event this information is protected by the Federal Confidentiality of Alcohol and Drug Abuse Patient Records regulations: The Federal rules restrict any use of the information to criminally investigate or prosecute any alcohol or drug abuse patient.[facility] CenterIn the event this information is protected by the Federal Confidentiality of Alcohol and Drug Abuse Patient Records regulations: The Federal rules restrict any use of the information to criminally investigate or prosecute any alcohol or drug abuse patient.[facility] Medical CenterIn the event this information is protected by the Federal Confidentiality of Alcohol and Drug Abuse Patient Records regulations: The Federal rules restrict any use of the information to criminally investigate or prosecute any alcohol or drug abuse patient.[facility] CenterIn the event this information is protected by the Federal Confidentiality of Alcohol and Drug Abuse Patient Records regulations: The Federal rules restrict any use of the information to criminally investigate or prosecute any alcohol or drug abuse patient.[facility] CenterIn the event this information is protected by the Federal Confidentiality of Alcohol and Drug Abuse Patient Records regulations: The Federal rules restrict any use of the information to criminally investigate or prosecute any alcohol or drug abuse patient.[facility] Medical CenterIn the event this information is protected by the Federal Confidentiality of Alcohol and Drug Abuse Patient Records regulations: The Federal rules restrict any use of the information to criminally investigate or prosecute any alcohol or drug abuse patient.[facility] Medical CenterIn the event this information is protected by the Federal Confidentiality of Alcohol and Drug Abuse Patient Records regulations: The Federal rules restrict any use of the information to criminally investigate or prosecute any alcohol or drug abuse patient.[facility] CenterIn the event this information is protected by the Federal Confidentiality of Alcohol and Drug Abuse Patient Records regulations: The Federal rules restrict any use of the information to criminally investigate or prosecute any alcohol or drug abuse patient.[facility] CenterIn the event this information is protected by the Federal Confidentiality of Alcohol and Drug Abuse Patient Records regulations: The Federal rules restrict any use of the information to criminally investigate or prosecute any alcohol or drug abuse patient.[facility] CenterIn the event this information is protected by the Federal Confidentiality of Alcohol and Drug Abuse Patient Records regulations: The Federal rules restrict any use of the information to criminally investigate or prosecute any alcohol or drug abuse patient.[facility] CenterIn the event this information is protected by the Federal Confidentiality of Alcohol and Drug Abuse Patient Records regulations: The Federal rules restrict any use of the information to criminally investigate or prosecute any alcohol or drug abuse patient.[facility] CenterIn the event this information is protected by the Federal Confidentiality of Alcohol and Drug Abuse Patient Records regulations: The Federal rules restrict any use of the information to criminally investigate or prosecute any alcohol or drug abuse patient.[facility] CenterIn the event this information is protected by the Federal Confidentiality of Alcohol and Drug Abuse Patient Records regulations: The Federal rules restrict any use of the information to criminally investigate or prosecute any alcohol or drug abuse patient.[facility] CenterIn the event this information is protected by the Federal Confidentiality of Alcohol and Drug Abuse Patient Records regulations: The Federal rules restrict any use of the information to criminally investigate or prosecute any alcohol or drug abuse patient.[facility] CenterIn the event this information is protected by the Federal Confidentiality of Alcohol and Drug Abuse Patient Records regulations: The Federal rules restrict any use of the information to criminally investigate or prosecute any alcohol or drug abuse patient.[facility] CenterIn the event this information is protected by the Federal Confidentiality of Alcohol and Drug Abuse Patient Records regulations: The Federal rules restrict any use of the information to criminally investigate or prosecute any alcohol or drug abuse patient.[facility] CenterIn the event this information is protected by the Federal Confidentiality of Alcohol and Drug Abuse Patient Records regulations: The Federal rules restrict any use of the information to criminally investigate or prosecute any alcohol or drug abuse patient.[facility] CenterIn the event this information is protected by the Federal Confidentiality of Alcohol and Drug Abuse Patient Records regulations: The Federal rules restrict any use of the information to criminally investigate or prosecute any alcohol or drug abuse patient.[facility] CenterIn the event this information is protected by the Federal Confidentiality of Alcohol and Drug Abuse Patient Records regulations: The Federal rules restrict any use of the information to criminally investigate or prosecute any alcohol or drug abuse patient.[facility] CenterIn the event this information is protected by the Federal Confidentiality of Alcohol and Drug Abuse Patient Records regulations: The Federal rules restrict any use of the information to criminally investigate or prosecute any alcohol or drug abuse patient.[facility] CenterIn the event this information is protected by the Federal Confidentiality of Alcohol and Drug Abuse Patient Records regulations: The Federal rules restrict any use of the information to criminally investigate or prosecute any alcohol or drug abuse patient.[facility] the event this information is protected by the Federal Confidentiality of Alcohol and Drug Abuse Patient Records regulations: The Federal rules restrict any use of the information to criminally investigate or prosecute any alcohol or drug abuse patient.[facility] CenterIn the event this information is protected by the Federal Confidentiality of Alcohol and Drug Abuse Patient Records regulations: The Federal rules restrict any use of the information to criminally investigate or prosecute any alcohol or drug abuse patient.[facility] CenterIn the event this information is [...] or prosecute any alcohol or drug abuse patient.[facility] CenterIn the event this information is protected by the Federal Confidentiality of Alcohol and Drug Abuse Patient Records regulations: The Federal rules restrict any use of the information to criminally investigate or prosecute any alcohol or drug abuse patient.[facility] Care Teams (unrecognized sec tion [...] DateEnd Date Gabino Owen MD PCP - [facility] Medicine11/10/20Team MemberRelationshipSpecialtyStart DateEnd Date Gabino Owen MD PCP - [facility] Medicine11/10/20Team MemberRelationshipSpecialtyStart DateEnd Date Gabino Owen MD PCP - [facility] Medicine11/10/20 Team Status: Inactive Member Role Status Dates Analia Holliday , DAVID Primary Care Provider, Attending Provider Active Team MemberRelationshipSpecialtyStart DateEnd Date Analia Holliday, LOGGING SUPERVISOR [address] [place] [phone] [facility] - [facility] Jusxwwud42/15/23Team MemberRelationshipSpecialtyStart Date End Date Analia Holliday, LOGGING SUPERVISOR [address] [place] [address] PCP - [facility] Vdzscxgu82/15/23Team MemberRelationshipSpecialtyStart Date End Date Analia Holliday, LOGGING SUPERVISOR [address] [place] [address] PCP - Generalmily Cvtpqdqs10/15/23Team MemberRelationshipSpecialtyStart Date End Date Analia Holliday, LOGGING SUPERVISOR [address] [place] [address] [facility] - [facility] Rblmhqtf57/15/23Team MemberRelationshipSpecialtyStart Date End Date Analia Holliday, LOGGING SUPERVISOR [address] [place] [address] PCP - [facility]06/06/23Team MemberRelationshipSpecialtyStart Date End Date Analia Holliday, LOGGING SUPERVISOR [address] [place] [address] PCP - [facility] Aztcmkka50/15/23am MemberRelationshipSpecialtyStart Date End Date Analia Holliday, LOGGING SUPERVISOR [address] [place] [address] PCP - [facility] Xqwxspiy10/15/23am MemberRelationshipSpecialtyStart Date End Date Analia Holliday, LOGGING SUPERVISOR [address] [place] [address] PCP - [facility] Loknfjpy17/15/23Team MemberRelationshipSpecialtyStart Date End Date Analia Holliday, LOGGING SUPERVISOR [address] [place] [address] [facility] Fcxxafve02/15/23Team MemberRelationshipSpecialtyStart Date End Date Analia Holliday, LOGGING SUPERVISOR [address] [employer] [place] [address] PCP - [facility]06/06/23Team MemberRelationshipSpecialtyStart Date End Date Analia Holliday, LOGGING SUPERVISOR [address] [place] [address] PCP [facility]06/06/23Team MemberRelationshipSpecialtyStart Date End Date Analia Holliday, LOGGING SUPERVISOR [address] [place] [address] [facility]06/06/23Team MemberRelationshipSpecialtyStart Date End Date Analia Holliday, LOGGING SUPERVISOR [address] [place] [address] [facility]06/06/23 Team Status: Active Member Role Status Dates Analia Holliday DNP Primary Care Provider Active Start: December 27, 2023 Dara Butler DOAttending ProviderActiveStart: December 27, 2023 Team Status: Inactive Member Role Status Dates Ana Bolton DO Attending Provider Active Start: January 01, 2024 End: January 01, 2024Team MemberRelationshipSpecialtyStart DateEnd Date Analia Holliday, LOGGING SUPERVISOR [address] [employer] [place] [address] [facility]06/06/23 Team Status: Active Member Role Status Dates Analia Dennis APRN HOT METAL CAR OPERATOR-C Primary Care Provider Active Team Status: Inactive Member Role Status Dates Analia Dennis APRN HOT METAL CAR OPERATOR-C Primary Care Provider, Attending Provider Active Start: March 19, 2024 End: March 19, 2024Team MemberRelationshipSpecialtyStart DateEnd Date Analia Holliday, LOGGING SUPERVISOR [address] [place] [address] PCP - GeneralFamily Demjmkve34/15/23Team MemberRelationshipSpecialtyStart Date End Date Gabino Owen MD PCP - GeneralFamily Medicine11/10/2110/Team MemberRelationshipSpecialtyStart DateEnd Date Aanlia Holliday, LOGGING SUPERVISOR [address] [place] [address] PCP - GeneralFamily Shodxsve70/15/23Team MemberRelationshipSpecialtyStart Date End Date Analia Holliday, LOGGING SUPERVISOR [address] [place] [address] PCP - GeneralFamily Oadcaumr29/15/23Team MemberRelationshipSpecialtyStart Date End Date Analia Holliday, LOGGING SUPERVISOR [address] [place] [address] PCP - GeneralFamily Jnauwvwz60/15/23Team MemberRelationshipSpecialtyStart Date End Date Analia Holliday, LOGGING SUPERVISOR [address] [place] [address] PCP - GeneralFamily Hcpooxbq95/15/23Team MemberRelationshipSpecialtyStart Date End Date Jennifer Frazier MD [address] [place] [address] PCP - GeneralFamily Zxqtljsv99/20/24Team MemberRelationshipSpecialtyStart Date End Date Kyree Stinson MD [address] [place] [address] (Fax) PCP - GeneralFamily Medicine12/13/22 Kyree Stinson MD [address] [place] [address] (Fax) PCP - [facility] [employer]11/20/22Team MemberRelationshipSpecialtyStart DateEnd Date Kyree Stinson MD [address] [place] [address] (Fax) PCP - GeneralFamily Medicine12/13/22 Kyree Stinson MD [address] [place] [address], [place] [address] (Fax) PCP - [facility] [employer]11/20/22Team MemberRelationshipSpecialtyStart DateEnd Date Kyree Stinson MD [address] [place] [address] (Fax) PCP - GeneralFamily Medicine12/13/22 Kyree Stinson MD [address] [place] [address] (Fax) PCP - [facility] [employer]11/20/22Team MemberRelationshipSpecialtyStart DateEnd Date Jennifer Frazier MD [address] [place] [phone] PCP - GeneralFamily Bxzxmatf72/20/24Team MemberRelationshipSpecialtyStart Date End Date Kyree Stinson MD [address] [place] [address] (Fax) PCP - GeneralFamily Medicine12/13/22 Kyree Stinson MD [address] [place] [address] (Fax) PCP - [facility]11/20/22Team MemberRelationshipSpecialtyStart DateEnd Date Kyree Stinson MD [address] [facility] [address] [place] [address] (Fax) [facility] - [facility]12/13/22 Kyree Stinson MD [address] [facility] [address] [place] [address] (Fax) PCP - [facility]11/20/22Team MemberRelationshipSpecialtyStart DateEnd Date Jennifer Frazier MD [address] [place] [address] PCP - [facility] Knvbfnpy45/20/24Team MemberRelationshipSpecialtyStart Date End Date Jennifer Frazier MD [address] [facility] [place] [address] PCP - [facility]06/11/24 Team Status: Active Member Role Status Dates Analia Dennis APRN HOT METAL CAR OPERATOR-Paola Attending Provider Act [place] Start: June 25, 2024 Wes Grey Care ProviderActiveStart: June 25, 2024 Team Status: Active Member Role Status Dates Hayley Jewell DO Primary Care Provider Active Start: June 27, 2024 Sridevi Chamberlain ProviderActiveStart: June 27, 2024 Team Status: Active Member Role Status Dates Analia Dennis APRN HOT METAL CAR OPERATOR-C Attending Provider Act [place] Start: June 30, 2024 Wes Grey Care ProviderActiveStart: June 30, 2024 Team Status: Inactive Member Role Status Dates Analia Rohrbacher , MARKETING TEAM LEAD HOT METAL CAR OPERATOR-C Primary Care Provider, Attending Provider Active Start: July 08, 2024 End: July 08, 2024 Team Status: Active Member Role Status Dates Analia Dennis APRN HOT METAL CAR OPERATOR-C Primary Care Provider, Attending Provider Active Start: July 09, 2024 Team Status: Active Member Role Status Dates Analia Dennis APRN HOT METAL CAR OPERATOR-C Primary Care Provider Active Start: July 112023 Marshall Bolden , DOAttending ProviderActiveStart: July 11, 2024 Team Status: Active Member Role Status Dates Analia Dennis APRN HOT METAL CAR OPERATOR-C Primary Care Provider Active Start: July 142023 Shadia Encarnacion , CMAAttending ProviderActiveStart: July 14, 2024 Team Status: Active Member Role Status Dates Analia Dennis APRN HOT METAL CAR OPERATOR-C Primary Care Provider Active Start: July 152023 Naebriana Hall ProviderActiveStart: July 15, 2024 Team Status: Inactive Member Role Status Dates Analia Dennis APRN HOT METAL CAR OPERATOR-C Primary Care Provider, Attending Provider Active Start: July 24, 2024 End: July 24, 2024 Team Status: Inactive Member Role Status Dates Analia Dennis APRN HOT METAL CAR OPERATOR-C Attending Provider Act [place] Start: July 24, 2024 End: July 24, 2024Team MemberRelationshipSpecialtyStart DateEnd Date Jennifer Frazier MD [address] [place] [address] [facility] - [facility] Utfwinnr22/20/24Team MemberRelationshipSpecialtyStart Date End Date Jennifer Frazier MD [address] [place] [address] [facility] - [facility] Nypamryy89/20/24Team MemberRelationshipSpecialtyStart Date End Date Jennifer Frazier MD [address] [place] [phone] PCP - GeneralFamily Lhcxmysb21/20/24 Team Status: Inactive Member Role Status Dates Paula Alberts DO Attending Provider Active Sta rt: October 24, 2024 End: October 24, 2024Analia Dennis APRN HOT METAL CAR OPERATOR-CPrimary Care ProviderActive Start: October 24, 2024 End: October 24, 2024 Team Status: Active Member Role Status Dates Analia Dennis APRN HOT METAL CAR OPERATOR-C Primary Care Provider Active Start: November 04, 2024 Keanu Koo MDAttending ProviderActiveStart: November 04, 2024 Team Status: Active Member Role Status Dates Analia Dennis APRN HOT METAL CAR OPERATOR-C Primary Care Provider Active Start: November 05, 2024 Sridevi Chamberlain ProviderActiveStart: November 05, 2024 Team Status: Inactive Member Role Status Dates Analia Dennis APRN HOT METAL CAR OPERATOR-C Primary Care Provider, Attending Provider Active Start: November 12, 2024 End: November 12, 2024Team MemberRelationshipSpecialtyStart DateEnd Date Paula Alberts DO [address] [place] [phone] PCP - GeneralInternal Medicine03/10/25Team MemberRelationshipSpecialtyStart Date End Date Paula Alberts DO [address] [place] [address] PCP - GeneralInternal Medicine03/10/25Team MemberRelationshipSpecialtyStart Date End Date Paula Alberts DO [address] [place] [address] PCP - GeneralInternal Medicine03/10/25 Goals [...] BE BASED ON THE PRIMARY CLINICAL RECORDS. [facility] [employer] [facility]. provides no warranty or guarantee of the accuracy or completeness of information in this document.
--- OUTSIDE RECORDS SUMMARY | 2025-06-27 07:14 | XMS_ITS | Clinical Summary ---
Author Organization [facility] Address [address] [place] [address] Care Team Providers Care Kitchen Help Handyman Name Role Phone Kyree Stinson MD Primary Care Provider [phone] Allergies Active AllergyReactionsCriticalityNoted DateCommentsMetronidazoleAnxiety, Diarrhea,Dizziness,Nausea Only,Palpitations,Rash,Shortness of [...] Problems ProblemNoted DateDiagnosed DateLong-term use of high-risk mwvhbuqelf67/24/2024 Upper back pain07/15/20246865Jvjhzgdhxe52/25/2921Mdeuzspcnhlk72/25/2024enal vein uhmklzvr62/28/2023yst of left ovary01/24/20231549Htxotsg22/05/2023Menstrual qrimfeme84/05/9038Uvapirhjvmx22/05/2023Pain due to genitourinary prosthetic devices, implants and grafts, initial bnanvsmwj09/05/2023bnormal findings on imaging test12/08/20223042Mrwdloeocxmdmiwu31/19/2023ile reflux flqpckmru09/11/2022 Allergy to food05/02/2022nxiety about fqyvqo7005/02/2022ody mass index (BMI) of 20 to 2415044Ucujviuiob38/11/2022Altered bowel gdrxoifx81/11/2022Lower abdominal pain05/02/2022Generalized anxiety /11/2022Irritable bowel syndrome with yttjgkha97/11/5591Fcrayr09/11/8476Lzyhxbuypwb92/11/2022hronic btyqjjy32/20/2022Recurrent yfbwmhcwvj41/20/6390Qxcvkdvcc03/20/2022lostridium difficile zkibrfh2410/28/2021 Resolved Problems ProblemNoted DateDiagnosed DateResolved QhonUmupthwcnsi96 Chronic left shoulder pain/hronic pain of left knee Immunizations ImmunizationAdministration DatesNext MboMZtR6501/27/2004DTaP, Unspecified 05/21/2000,05/16/1999,03/18/1999,01/14/1999HPV, Xnvbrqbypwzf21/01/2011, 02/07/2011Hep B, Adolescent or Ssnjizule96/25/1999,01/14/1999,1998HiB, gimszdvpvax39/02/2000,05/16/1999,03/18/1999,01/14/1999IPV01/27/2004MMR01/27/2004 ,02/22/2000Meningococcal QYA5X7802/07/2011Pneumococcal Conjugate PCV Polio, Ggugjsdudcd60/02/2000,05/16/1999,03/18/1999,01/14/1999Tdap02/07/2011 Unspecified Sars-Cov-2 Abjfgvdhpyg01/15/2021,04/06/2021,03/16/2021,03/16/2021 Rdwaklsoj91/07/2010,02/07/2011,11/24/1999 Social History Tobacco UseTypesPacks/DayYears UsedDateSmoking Tobacco: NeverSmokeless [...] partner or ex-partner?No07/28/2024PHQ-2 AnswerDate RecordedPatient Health Questionnaire-2 Rjymd259UT Safety & EnvironmentAnswerDate RecordedFear of Current or Ex-PartnerNot on file09/13/2023 Emotionally AbusedNot on file09/13/2023hysically AbusedNot on file09/13/2023 Sexually AbusedNot on file4Physically or Sexually AbusedNot on file 09/13/2023CommentsNoSex and Gender InformationValueDate RecordedSex Assigned at YpnlrFgrqwz68/07/2023 9:41 PM ESTLegal SjlHgcblg28/30/2022 12:44 AM EDTGender AiloqyauQtuheh90/07/2023 9:41 PM ESTSexual OrientationNot on file Last Filed Vital Signs Vital SignReadingTime TakenCommentsBlood Eygdkeht279/63007/28/2024 2:22 PM EST Osbyf048107/28/2024 2:22 PM KTHXlssdunoxny67.4 ??C (97.5 ??F)08/15/2022 10:15 AM ESTRespiratory Mxyb038808/15/2022 12:00 PM ESTOxygen Tezofopvod853%08/15/2022 12:00 PM ESTInhaled Oxygen Concentration--Axetbf63.2 kg (115 lb)07/28/2024 2:22 PM SLZZdhnir965.6 cm (5' 4 )07/28/2024 2:22 PM ESTBody Mass Index19.7407/28/2024 2:22 PM EST Plan of Treatment Health MaintenanceDue DateLast DoneCommentsHPV Vaccines (3 - 2-dose series) , 02/07/2011Pap Smear11/18/2019Adult Vncesau6411/17/2020 02/07/2011COVID-19 Vaccine ( season), 04/06/2021, 04/06/2021, Additional history existsInfluenza Vaccine (#1)03/23/2025Depression Uzgtwsqua61/06/467971/12/2024Zoster Vaccines (1 of 2)911/07/2010, 02/07/2011, 11/24/1999HIB AnkcgqsoMrbvxrtsq86/02/2000, 05/16/1999, 03/18/1999, Additional history existsPneumococcal Vaccine: Pediatrics (0 to 5 Years) and At- Risk Patients (6 to 64 Years)Aged Out05/21/2000No longer eligible based on patient's age to complete this topicIPV DcekkhqxMdjgoogsj44/07/2004, 02/22/2000, 05/16/1999, Additional history existsMeningococcal VaccineAged Out02/07/2011No longer eligible based on patient's age to complete this topicVaricella Vaccines Mxbsgdmyq94/01/2011, 02/07/2011, 11/24/1999Meningococcal B VaccineAged OutNo longer eligible based on patient's age to complete this topicRotavirus Vaccines Aged OutNo longer eligible based on patient's age to complete this topic Insurance Care Teams Team MemberRelationshipSpecialtyStart DateEnd Date Kyree Stinson MD [address], [place] [id number] [facility]09/20/22
--- OUTSIDE RECORDS SUMMARY | 2025-06-27 07:14 | XMS_ITS | Encounter Summary ---
Author Organization [facility] Address [address] [place] [address] Care Team Providers Care Province Archivist Name Role Phone Zenon Alberts Primary Care Provider [phone] Encounter Details DateTypeDepartmentCare Team (Latest Contact Info)Fiviatyzbpe63/25/2025Telephone [facility] [email or web address] [address] Jeremiah Burroughs DO [address] [place], [place] [address] Social History Tobacco UseTypesPacks/DayYears UsedDateSmoking Tobacco: NeverAlcohol UseStandard Drinks/WeekCommentsYes2 (1 standard drink = 0.6 oz pure alcohol)1-2 drinks/monthly or lessCommentsNoSex and Gender InformationValueDate RecordedSex Assigned at ZqqsnJlutsa42/23/2023 3:49 PM EDTLegal SexFemale 10/04/2022 11:08 PM EDTGender VzqnamyvEnsmar97/23/2023 3:49 PM EDTSexual OrientationNot on filedocumented as [...] Plan of Treatment DateTypeDepartmentCare Team (Latest Contact Info)Iiheaizoxgp06/19/2025 10:30 AM ESTAncillary Procedure [facility] [address] [place] [address] 07/10/2025 11:00 AM ESTInitial [facility] [address] [place] [address] NameTypePriorityAssociated DiagnosesOrder SchedulehCG, quantitative, LabRoutine Positive urine test ([facility]) Missed menses Expected: 06/16/2025 (Approximate), Expires: 12/14/2025documented as of this encounter Visit Diagnoses Diagnosis Positive urine test ([facility]) Missed menses documented in this encounter Care Teams Team MemberRelationshipSpecialtyStart DateEnd Date Zenon Alberts DO [address] [facility] [place] [address] PCP - GeneralInternal Medicine03/10/25documented as of this encounter
--- OUTSIDE RECORDS SUMMARY | 2025-06-27 07:15 | XMS_ITS | Clinical Summary ---
Author Organization [facility] Address [address] [place] [address] Phone Care Team Providers Care Multimedia Assistant Name Role Phone Unavailable Primary Care Provider Unavailabl e Allergies Active AllergyReactionsCriticalityNoted GaeuXzeysxvcQznsifxklgltuDhpfz28/25/2024 Medications MedicationSigDispense QuantityRefillsLast FilledStart DateEnd DateStatus dicyclomine (Bentyl) 10 mg capsule Take 1 capsule (10 mg) by mouth once daily as needed.11/29/2023ctive escitalopram (Lexapro) 10 mg tablet Take 0.5 tablets (5 mg) by mouth once daily.11/29/2023ctive ondansetron ODT (Zofran-ODT) 4 mg disintegrating tablet Take 1 tablet (4 mg) by mouth every 6 hours if needed.12/28/2023ctive Active Problems ProblemNoted DateDiagnosed TerjAmzedfjjsu51/25/2024 Social History Tobacco UseTypesPacks/DayYears UsedDateSmoking Tobacco: NeverSmokeless [...] on one occasion?Never02/05/2024HQ-2 AnswerDate RecordedPatient Health Questionnaire-2 Kajgg654 CommentsNoSex and Gender InformationValueDate RecordedSex Assigned at Focqvc0001/30/2024 9:51 AM EDTLegal ZdwUwgtzl15/04/2024 8:24 AM EDTGender Identity Hstdxy2901/30/2024 9:51 AM EDTSexual NzazshvsfceUtmbezma18/10/2024 9:51 AM EDT Last Filed Vital Signs Vital SignReadingTime TakenCommentsBlood Dzdfrhjn81/6409 10:51 AM EDT Voqza6182 10:51 AM DQDDfatgepmhee88.2 ??C (97.2 ??F)04/16/2024 10:21 AM EDTRespiratory Abxz641304/16/2024 10:51 AM EDTOxygen Bxsztfuydu152%04/16/2024 10:51 AM EDTInhaled Oxygen Concentration--Lgffcl04.2 kg (115 lb)04/16/2024 8:23 AM NWDStoieo164.6 cm (5' 4 )04/16/2024 8:23 AM EDTBody Mass Index19.7404/16/2024 8:23 AM EDT Plan of Treatment Health MaintenanceDue DateLast DoneCommentsHIV Nxpqkzrqp92/28/1999Lipid Panel 1998HPV Vaccines (3 - 2-dose series), 02/07/2011 Hepatitis C Olcctccjb07/28/2017Cervical Cancer Bkjkcvwcn37/28/2020HPV/Cotest 11/18/2019Pap Smear11/18/2019DTaP/Tdap/Td Vaccines (7 - Td or Tdap)02/07/2021 02/07/2011, 01/27/2004, 05/21/2000, Additional history existsYearly Adult Xrskqqkr97/16/866897/, 05/24/2023Influenza Vaccine (#1)5COVID-19 Vaccine ( season), 03/16/2021Zoster Vaccines (1 of 2)911/07/2010, 02/07/2011, 11/24/1999Hepatitis B VaccinesCompleted 05/16/1999, 01/14/1999, 1998HIB TknlcfzcZcdhxhezg01/02/2000, 05/16/1999, 03/18/1999, Additional history existsPneumococcal Vaccine: Pediatrics and At- Risk Adult PatientsAged Out05/21/2000No longer eligible based on patient's age to complete this topicIPV GqelpjdcQzwgwykos01/07/2004, 02/22/2000, 05/16/1999, Additional history existsMMR UodrhytwQpwoxjori76/07/2004, 02/22/2000 Meningococcal VaccineAged Out02/07/2011No longer eligible based on patient's age to complete this topicHepatitis A VaccinesAged OutNo longer eligible based on patient's age to complete this topicRotavirus VaccinesAged OutNo longer eligible based on patient's age to complete this topic Insurance
--- OUTSIDE RECORDS SUMMARY | 2025-06-27 07:15 | XMS_ITS | Encounter Summary ---
Author Organization [facility] Address [address] [facility] [place] [address] Care Team Providers Care Rn Unit Manager Name Role Phone Zenon Alberts DO Primary Care Provider [phone] Encounter Details DateTypeDepartmentCare Team (Latest Contact Info)Abzlolmjhnx32/28/2025Clinisync Result Encounter [facility] External Department Unsolicited Jeremiah Burroughs DO [address], [facility] Social History Tobacco UseTypesPacks/DayYears UsedDateSmoking Tobacco: NeverAlcohol UseStandard Drinks/WeekCommentsYes2 (1 standard drink = 0.6 oz pure alcohol)1-2 drinks/monthly or lessCommentsNoSex and Gender InformationValueDate RecordedSex Assigned at MekxqMhrkbu90/23/2023 3:49 PM EDTLegal SexFemale 10/04/2022 11:08 PM EDTGender QflkkgqmBavepn37/23/2023 3:49 PM EDTSexual OrientationNot on filedocumented as of this encounter Plan of Treatment DateTypeDepartmentCare Team (Latest Contact Info)Dkwqlmwksfm95/19/2025 10:30 AM ESTAncillary Procedure [facility] [address] [place] [address] 07/10/2025 11:00 AM ESTInitial [facility] [address] [facility] [place] [address] documented as of this encounter Procedures Procedure NamePriorityDate/TimeAssociated DiagnosisCommentsTBH PREG QUANT HCG Lheaxxp1406/19/2025 7:33 AM EST documented in this encounter Results * TBH PREG QUANT HCG (06/19/2025 7:33 AM EST)ComponentValueRef RangeTest Method Analysis TimePerformed AtPathologist SignatureHCG HIRDXGOQKHGL958nWZ/mLTBH Comment: 5-50 ? 0.2-1 WEEK 50-500 ? [...] DOCLINISYNCFinal Result Performing OrganizationAddressCity/State/ZIP CodePhone Number [facility] documented in this encounter Visit Diagnoses Not on filedocumented in this encounter Care Teams Team MemberRelationshipSpecialtyStart DateEnd Date Zenon Alberts DO [address] [place] [phone] PCP - GeneralInternal Medicine03/10/25documented as of this encounter
--- OUTSIDE RECORDS SUMMARY | 2025-06-27 07:15 | XMS_ITS | Clinical Summary ---
Author Organization [facility] Address [id number] [address] [place] [address] Care Team Providers Care Commercial Field Inspector Name Role Phone No Pcp, No Pcp [...] standard drink = 0.6 oz pure alcohol)ChildcareAnswerDate NlcaoflrQwwouozhkVamwjni41/13/2019Employment AnswerDate VhwycieeYtieeesyuxIzdgfpj01/13/2019Hunger ScreeningAnswerDate RecordedWithin the past 12 months we worried whether our food would run out before we got money to buy more.Never True02/13/2024Food Insecurity - Inability Not on file02/13/2024urpose - LifeAnswerDate RecordedPurpose and direction in vcrrGzrddcu69/11/2021CommentsUnknownSex and Gender InformationValueDate RecordedSex Assigned at BirthNot on fileLegal UfaZfgkcj43/10/2018 9:09 AM EDT Gender IdentityNot on fileSexual OrientationNot on file Last Filed Vital Signs Vital SignReadingTime TakenCommentsBlood Qlykrxka063/7807 9:24 AM EDT Yavls835402/13/2024 9:24 AM EDTTemperature--Respiratory Rate--Oxygen Saturation-- Inhaled Oxygen Concentration--Xkbkcr63.3 kg (115 lb 6.4 oz)02/13/2024 9:24 AM QFEZeizbh812.6 cm (5' 4 )02/13/2024 9:24 AM EDTBody Mass Index19.8102/13/2024 9:24 AM EDT Plan of Treatment Health MaintenanceDue DateLast DoneCommentsDepression Pswwokmmh96/28/2011Pap Smear11/18/2019DTaP,Tdap and Td Vaccines (7 - Td or Tdap), 01/27/2004, 05/21/2000, Additional history existsAdult BMI Jmnlxrdxv84/24/2025 02/13/2024Tobacco Jmdfeufhf41/24/61175202/13/2024OVID-19 Vaccine ( season)/, 03/16/2021Influenza Ggrreee34/07/2024 Medical Devices Not on file Insurance Care Teams Team MemberRelationshipSpecialtyStart DateEnd Date No Pcp, No Pcp J[place] [id number] PCP - GeneralFami Medicine02/13/24
--- OUTSIDE RECORDS SUMMARY | 2025-06-27 07:15 | XMS_ITS | Encounter Summary ---
Author Organization [facility] Address [address] [place] [address] Care Team Providers Care Traffic Sign Erection Supervisor Name Role Phone Zenon Alberts DO Primary Care Provider [phone] Encounter Details DateTypeDepartmentCare Team (Latest Contact Info)Nejwcswwcfd68/01/2025linisync Result Encounter [facility] External Department Unsolicited Jeremiah Burroughs DO [address], [facility]11 Social History Tobacco UseTypesPacks/DayYears UsedDateSmoking Tobacco: NeverAlcohol UseStandard Drinks/WeekCommentsYes2 (1 standard drink = 0.6 oz pure alcohol)1-2 drinks/monthly or lessCommentsNoSex and Gender InformationValueDate RecordedSex Assigned at EgxtzSvnpbj85/23/2023 3:49 PM EDTLegal SexFemale 10/04/2022 11:08 PM EDTGender CuwpnqtuHonzyz29/23/2023 3:49 PM EDTSexual OrientationNot on filedocumented as of this encounter Plan of Treatment DateTypeDepartmentCare Team (Latest Contact Info)Bxitcgoeoco13/19/2025 10:30 AM ESTAncillary Procedure [facility] [address] [place] [address] 07/10/2025 11:00 AM ESTInitial [facility] [address] [facility] [place] [address] documented as of this encounter Procedures Procedure NamePriorityDate/TimeAssociated DiagnosisCommentsTBH PREG QUANT HCG Qhkwndj5306/22/2025 7:45 AM EST documented in this encounter [...] DOCLINISYNCFinal Result Performing OrganizationAddressCity/State/ZIP CodePhone Number [facility] documented in this encounter Visit Diagnoses Not on filedocumented in this encounter Care Teams Team MemberRelationshipSpecialtyStart DateEnd Date Zenon Alberts DO [address] [place] [phone] PCP - GeneralInternal Medicine03/10/25documented as of this encounter
--- OUTSIDE RECORDS SUMMARY | 2025-06-27 07:15 | XMS_ITS | Clinical Summary ---
Author Organization [facility] Address [address] [place], [place] [id number] Care Team Providers Care End Lathe Operator Name Role Phone Keshia Restrepo MD Primary Care Provider [phone] Allergies Active AllergyReactionsCriticalityNoted DateCommentsMetronidazoleMental Status Change,Diarrhea,GI Upset,Hives,Other: See Comments,Rash,Shortness of Breath, Unknown,EvaplcvhSudu40/16/2021 Medications MedicationSigDispense QuantityRefillsLast FilledStart DateEnd DateStatus escitalopram [...] DateUpper back pain07/15/2024Long-term use of high- risk akevehuake92/24/2024Organic anxiety lxdxecbo68/25/2024alpitations 11/15/2023ilateral arm pain3Chronic bilateral low back pain without yozfntyl47/19/2023bnormal findings on imaging test3Photosensitivity 4329Qqlsaxydggs69/20/2022Chronic pain of left knee2Chronic left shoulder pain2Recurrent hlxyvgesxr23/20/0956Ljftalhbc10/20/2022Chronic wlvwguo5212/09/2021 Family History Medical HistoryRelationCommentsHeartFatherProstate CancerFatherStrokeMotherColon CancerNo Family HistoryRelationStatusCommentsFatherAliveMotherAlive Social History Tobacco UseTypesPacks/DayYears UsedDateSmoking Tobacco: NeverSmokeless Tobacco: Never Tobacco Cessation:Counseling Given: Yes Alcohol UseStandard Drinks/WeekCommentsNot Currently0 (1 standard drink = 0.6 oz pure alcohol)socially- rarePHQ-2AnswerDate RecordedPHQ-2 dnsxb1624Area Deprivation IndexAnswerDate RecordedNational Score (1-100), lower number is lower nnma1291State Score (1-10), lower number is lower zbtt852 Data from: https://www.neighborhoodatlas.[facility].edu/. Last address used for [address]3CommentsNoSex and Gender InformationValueDate RecordedSex Assigned at PrmagGhhpom11/13/2021 10:03 PM EDT Legal LuaIruwdb40/14/2021 4:54 PM EDTGender WnxfvnchBgtpiw73/13/2021 10:03 PM EDTSexual RxlymgwxmrgQcgxhyes87/13/2021 10:03 PM EDT Last Filed Vital Signs Vital SignReadingTime TakenCommentsBlood Nfoeideh190/61009/03/2024 11:00 AM EST Anjkw663609/03/2024 11:00 AM RTFJxkunnxfixl50.9 ??C (98.4 ??F)09/03/2024 10:13 AM ESTRespiratory Mhpe062809/03/2024 11:00 AM ESTOxygen Gwwvxolneb914%09/03/2024 11:00 AM ESTInhaled Oxygen Concentration--Zuqnoh09.2 kg (115 lb)09/03/2024 10:13 AM UTEIigtns414.6 cm (5' 4 )09/03/2024 10:13 AM ESTBody Mass Index19.74 09/03/2024 10:13 AM EST Plan of Treatment Health MaintenanceDue DateLast DoneCommentsPeds To Adult Transition Initial Xczgzfwlxp81/28/2011HPV Vaccine (3 - 2-dose series), 02/07/2011Peds To Adult Transition Annual Cwmdpqklao50/28/2013Depression Yoyvenrey23/28/2017HIV Umfgksjep62/28/2017Cervical Cancer Cmuxqkryi49/28/2020 DTaP,Tdap,Td Vaccine (7 - Td or Tdap), 01/27/2004, 05/21/2000, Additional history existsCovid-19 Vaccine (2024- season) /, 03/16/2021Influenza Vaccine (#1)2025Hepatitis B RlmhyniWkbdqudiv34/25/1999, 01/14/1999, 1998Hepatitis C ScreeningCompleted 12/08/2022 Procedures Procedure NamePriorityDate/TimeAssociated DiagnosisCommentsHEPATITIS C ANTIBODY IA WITH SJVXCOCKCXWJYfzuxvc87/19/2023 12:39 PM EDT Elevated LFTs from Last 3 Months or Most Recently Relevant to Health Maintenance Results * HEP C AB IA W/CONF SCRN (12/08/2022 12:39 PM EDT)ComponentValueRef RangeTest MethodAnalysis TimePerformed AtPathologist SignatureHep C Antibody IANegative Agmqwlam50/20/2023 10:13 AM EDTCKETTERING HEALTH TROY LABComment:The result suggests no evidence of active infection with Hepatitis C virus. Should recent infectionbe suspected, repeat testing may be considered 4-6 weeks after this draw.Specimen (Source)Anatomical Location / LateralityCollection Method / VolumeCollection TimeReceived TimeBloodBLOOD SPECIMEN / UnknownVenipuncture / Ahhvqyf1612/08/2022 12:39 PM EDT12/08/2022 12:41 PM EDT Narrative Authorizing ProviderResult TypeResult StatusMarsundeep Gee MDLABORATORYFinal ResultPerforming OrganizationAddressCity/State/ZIP CodePhone Number [facility] [address] [place] [address], from Last 3 Months or Most Recently Relevant to Health Maintenance Insurance Care Teams Team MemberRelationshipSpecialtyStart DateEnd Date Keshia Restrepo MD [address] [place] [address] PCP - GeneralFamily Ahyfmhhl87/20/24
--- OUTSIDE RECORDS SUMMARY | 2025-06-27 07:15 | XMS_ITS | Encounter Summary ---
Author Organization [facility] Address [address] [facility] [place] [address] Care Team Providers Care Bearing Grinder Name Role Phone Zenon Alberts DO Primary Care Provider [phone] Encounter Details DateTypeDepartmentCare Team (Latest Contact Info)Urtzlaivydr86/05/2025Telephone [facility] [address] [place] [address] [place] [address] Yessi Mena LPN Social History Tobacco UseTypesPacks/DayYears UsedDateSmoking Tobacco: NeverAlcohol UseStandard Drinks/WeekCommentsYes2 (1 standard drink = 0.6 oz pure alcohol)1-2 drinks/monthly or lessCommentsNoSex and Gender InformationValueDate RecordedSex Assigned at FfehxQxfmdh82/23/2023 3:49 PM EDTLegal SexFemale 10/04/2022 11:08 PM EDTGender SznvltrmDhtlcd80/23/2023 3:49 PM EDTSexual OrientationNot on filedocumented as of this encounter Miscellaneous Notes * Telephone Encounter - Yessi Mena LPN - 06/26/2025 8:10 AM EST Fanny from [facility] lab needed updated order sent over for patient to have another HCG quant. Original order did not have multiple draws on it. Informed Fanny that new order would be sent over. Yessi De Luna LPN documented in this encounter Plan of Treatment DateTypeDepartmentCare Team (Latest Contact Info)Iwuzkavgtkc91/19/2025 10:30 AM ESTAncillary Procedure [facility] [address] [place] [address] 07/10/2025 11:00 AM ESTInitial [facility] CRUZN [address] [place] [phone] NameTypePriorityAssociated DiagnosesOrder SchedulehCG, quantitative, LabRoutine Positive urine test (HHS-HCC) PCOS (polycystic ovarian syndrome) History of miscarriage Missed menses Expected: 06/26/2025 (Approximate), Expires: 06/26/2026documented as of this encounter Visit Diagnoses Diagnosis Positive urine test (HHS-HCC) PCOS (polycystic ovarian syndrome) Polycystic ovaries History of miscarriage Personal history of other genital system and obstetric disorders Missed menses documented in this encounter Care Teams Team MemberRelationshipSpecialtyStart DateEnd Date Zenon Alberts DO [address] [facility] [place] [address] PCP - GeneralInternal Medicine03/10/25documented as of this encounter
--- OUTSIDE RECORDS SUMMARY | 2025-06-27 07:15 | XMS_ITS | Encounter Summary ---
Author Organization [facility] Address [address] [facility] [place] [address] Care Team Providers Care Senior Manager Quality Assurance Name Role Phone Zenon Alberts DO Primary Care Provider [phone] Encounter Details DateTypeDepartmentCare Team (Latest Contact Info)Icnxnhdtoqs31/26/2025linisync Result Encounter [facility] External Department Unsolicited Jeremiah Burroughs DO [address], [facility]11 Social History Tobacco UseTypesPacks/DayYears UsedDateSmoking Tobacco: NeverAlcohol UseStandard Drinks/WeekCommentsYes2 (1 standard drink = 0.6 oz pure alcohol)1-2 drinks/monthly or lessCommentsNoSex and Gender InformationValueDate RecordedSex Assigned at ZaaamLuxejj55/23/2023 3:49 PM EDTLegal SexFemale 10/04/2022 11:08 PM EDTGender ZobgphgoWudmoo95/23/2023 3:49 PM EDTSexual OrientationNot on filedocumented as of this encounter Plan of Treatment DateTypeDepartmentCare Team (Latest Contact Info)Hvfvphmqxqs70/19/2025 10:30 AM ESTAncillary Procedure [facility] [address] [place] [address] 07/10/2025 11:00 AM ESTInitial [facility] [address] [facility] [place] [address] documented as of this encounter Procedures Procedure NamePriorityDate/TimeAssociated DiagnosisCommentsTBH PREG QUANT HCG Yrlqspj3006/17/2025 7:35 AM EST documented in this encounter Results * TBH PREG QUANT HCG (06/17/2025 7:35 AM EST)ComponentValueRef RangeTest Method Analysis TimePerformed AtPathologist SignatureHCG NSVDVYEOJJFR619zNE/mLTBH Comment: 5-50 ? 0.2-1 WEEK 50-500 ? [...] DOCLINISYNCFinal Result Performing OrganizationAddressCity/State/ZIP CodePhone Number [facility] documented in this encounter Visit Diagnoses Not on filedocumented in this encounter Care Teams Team MemberRelationshipSpecialtyStart DateEnd Date Zenon Alberts DO [address] [place] [phone] PCP - GeneralInternal Medicine03/10/25documented as of this encounter
--- OUTSIDE RECORDS SUMMARY | 2025-06-27 07:15 | XMS_ITS | Clinical Summary ---
Author Organization [facility] Healthcare Address [address] [place] [address] Care Team Providers Care Oil Field Roustabout Name Role Phone Zenon Alberts DO Primary Care Provider Allergies Active AllergyReactionsCriticalityNoted EdowUvpjxulzGmpyuttaemkpq96/23/2023 Medications MedicationSigDispense QuantityRefillsLast FilledStart DateEnd DateStatus escitalopram (Lexapro) 10 MG tablet Take 5 mg by mouth in the morning.Active dicyclomine (Bentyl) 10 MG capsule Take 10 mg by mouth Daily as eeynxz754Active Active Problems ProblemNoted DateDiagnosed DateRenal vein /28/2023yst of left ovary 01/24/20236690Acvtbyz48/05/2023Menstrual /05/2023Miscarriage ([facility]) 01/24/2023ain due to genitourinary prosthetic devices, implants and grafts, initial jdbjonvyl23/05/2023bnormal findings on imaging test12/08/2022ilateral arm pain12/08/20228510Cysqpottsgskmqhe96/19/2023llergy to food05/02/2022ltered bowel /11/2022nxiety about wxjyro4605/02/2022ile reflux gastritis 05/02/20225863Gsdewcxgwj30/11/2022Generalized anxiety /11/2022Irritable bowel syndrome with qhciuvuu65/11/2022Lower abdominal pain05/02/2022Nausea 05/02/20227603Amnobavnufb99/11/6878Xcalrequgxy00/20/2022hronic mmwakco4112/09/2021 Chronic pain of left knee2Recurrent msatoscjev29/20/2022Urticaria 2Clostridium difficile vwyjhil9810/28/2021 Encounters DateTypeDepartmentCare KhtnLqhmcujrxtu78/05/2025Telephone [facility] [address] [place] [phone] Yessi Mena, ANDREW 5Clinisync Result Encounter [facility]OMS External Department Unsolicited Heike, Jeremiah, DO 06/23/2025Telephone [facility] [address] [place] [address] Yessi Mena, AMBULATORY CARE NURSE 5Clinisync Result Encounter [facility]OMS External Department Unsolicited Heike, Jeremiah, DO 5Clinisync Result Encounter NOMS External Department Unsolicited Heike, Jeremaih, DO 5Clinisync Result Encounter NOMS External Department Unsolicited Heike, Jeremiah, DO 06/16/2025Telephone [facility] [address] [place] [phone] HeikeJeremiah mcguire, DO 5Clinisync Result Encounter [facility]OMS External Department Unsolicited Heike, Jeremiah, DO 03/30/2025Telephone [facility] [address] [place] [address] Luna Laguerre, ANDREW from Last 3 Months Immunizations ImmunizationAdministration DatesNext QzhKZnY0601/27/2004DTaP, Unspecified 05/21/2000,05/16/1999,03/18/1999,01/14/1999HPV, Rddgovslaicf08/01/2011, 02/07/2011Hep B, Adolescent or Ffguhxpma39/25/1999,01/14/1999,1998HiB, /02/2000,05/16/1999,03/18/1999,01/14/1999IPV01/27/2004MMR07 ,02/22/2000Meningococcal DPM1A9102/07/2011Pneumococcal Conjugate PCV Polio, Yhikfhlgnwa92/02/2000,05/16/1999,03/18/1999,01/14/1999Tdap02/07/2011 Tmlhakwcu06/01/2011,02/07/2011,11/24/1999 Family History Medical HistoryRelationNameCommentsNo Known ProblemsBrotherHypertensionFather Prostate cancerFatherCancerMaternal GrandfatherCancerMaternal GrandmotherStroke MotherNo Known ProblemsSister2 sistersRelationNameStatusCommentsBrotherFather AliveMaternal GrandfatherMaternal GrandmotherMotherAliveSisterx2 Social History Tobacco UseTypesPacks/DayYears UsedDateSmoking Tobacco: Never Tobacco Cessation:Counseling Given: Not Answered Alcohol UseStandard Drinks/WeekCommentsYes2 (1 standard drink = 0.6 oz pure alcohol)1-2 drinks/monthly or lessCommentsNoSex and Gender Information ValueDate RecordedSex Assigned at YjjgpOomvwi18/23/2023 3:49 PM EDTLegal Sex Cjxpvr3410/04/2022 11:08 PM EDTGender FphrrsoeOwvvuq08/23/2023 3:49 PM EDTSexual OrientationNot on file Last Filed Vital Signs Vital SignReadingTime TakenCommentsBlood Sxgcquio074/6209 1:52 PM EDT Pulse--Temperature--Respiratory Rate--Oxygen Saturation--Inhaled Oxygen Concentration--Oampht92.3 kg (113 lb)03/24/2025 1:52 PM YVWUknkqt375.6 cm (5' 4 )03/24/2025 1:52 PM EDTBody Mass Index19. 1:52 PM EDT Plan of Treatment DateTypeDepartmentCare Team (Latest Contact Info)Mwomjxhyoru57/19/2025 10:30 AM ESTAncillary Procedure [facility] [address] [place] [address] 07/10/2025 11:00 AM ESTInitial [facility] [address] [place] [address] Health MaintenanceDue DateLast DoneCommentsCOVID-19 Vaccine ( season) /, 03/16/2021Influenza Vaccine (#1)2025Pneumococcal Vaccine: Pediatrics (0 to 5 Years) and At-Risk Patients (6 to 64 Years)Aged Out 05/21/2000No longer eligible based on patient's age to complete this topic Procedures Procedure NamePriorityDate/TimeAssociated DiagnosisCommentsTBH PREG QUANT HCG Relzzcs9706/24/2025 7:45 AM EST TBH PREG QUANT ZYYTytzxtc39/01/2025 7:45 AM EST TBH PREG QUANT YTCBpgimxh75/28/2025 7:33 AM EST TBH PREG QUANT DNCKhkmxzn83/26/2025 7:35 AM EST ALL CBC WITH AUTO MZEWFjihclz00/27/2025 10:10 AM EDT TBH PREG QUANT FUSZgdkhzx18/27/2025 10:10 AM EDT ALL THYROID STIM PPWQHIODwpipai39/27/2025 10:10 AM EDT MLR HEMOGLOBIN U9TDbuvxzf69/27/2025 10:10 AM EDT ALL THYROXINE (T4) QVKOChpkicr34/27/2025 10:10 AM EDT ALL FOLLICLE STIMULATING GRLHTYUEoyquhh06/27/2025 10:10 AM EDT ALL LUTEINIZING MLTOMZKIlihbor05/27/2025 10:10 AM EDT from Last 3 Months Results * TBH PREG QUANT HCG (06/24/2025 7:45 AM EST) Only the most recent of5 resultswithin the time period is included. ComponentValueRef RangeTest MethodAnalysis TimePerformed AtPathologist Signature HCG QUANTITATIVE3,371mIU/mLTBHComment: 5-50 ? 0.2-1 WEEK 50-500 ? 1-2 WEEKS 100-5,000 ?2-3 WEEKS 500-10,000 ? 3-4 WEEKS 1,000-50,000 ?? 4-5 WEEKS 10,000-100,000 5-6 WEEKS 15,000-200,000 6-8 WEEKS 10,000-100,000 2-3 MONTHS Specimen (Source)Anatomical Location / LateralityCollection Method / Volume Collection TimeReceived Time06/24/2025 7:45 AM EST06/24/2025 8:02 AM EST Narrative [facility] - 06/24/2025 9:28 AM EST Authorizing ProviderResult TypeResult StatusCorey Heike DOCLINISYNCFinal Result Performing OrganizationAddressCity/State/ZIP CodePhone Number [facility] * MLR HEMOGLOBIN A1C (04/18/2025 10:10 AM EDT)ComponentValueRef RangeTest Method Analysis TimePerformed AtPathologist SignatureGLYCOHEMOGLOBIN A1C5.14.5 - 6.2 %TBHComment: ADA RECOMMENDED LIMIT 4.0 - 6.0 ADA THERAPEUTIC TARGET < 7.0 ACTION SUGGESTED > 7.0 ESTIMATED AVERAGE OKNICVA698gq/dLTBHSpecimen (Source)Anatomical Location / LateralityCollection Method / VolumeCollection TimeReceived Time04/18/2025 10:10 AM EDT04/18/2025 10:15 AM EDT Narrative [facility] - 04/18/2025 12:03 PM EDT Authorizing ProviderResult TypeResult StatusCorey Heike DOCLINISYNCFinal Result Performing OrganizationAddressty/State/ZIP CodePhone Number [facility] * ALL THYROXINE (T4) FREE (04/18/2025 10:10 AM EDT)ComponentValueRef RangeTest MethodAnalysis TimePerformed AtPathologist SignatureFREE T40.970.76 - 1.46 ng/dLTBHSpecimen (Source)Anatomical Location / LateralityCollection Method / VolumeCollection TimeReceived Time04/18/2025 10:10 AM EDT04/18/2025 10:15 AM EDT Narrative [facility] - 04/18/2025 12:15 PM EDT Authorizing ProviderResult TypeResult StatusCorey Heike DOCLINISYNCFinal Result Performing OrganizationAddTor[facility] State Hospitalty/State/ZIP CodePhone Number [facility] * ALL THYROID STIM HORMONE (04/18/2025 10:10 AM EDT)ComponentValueRef RangeTest MethodAnalysis TimePerformed AtPathologist SignatureTHYROID STIMULATING HORMONE1.1060.358 - 3.740 uIU/mLTBHSpecimen (Source)Anatomical Location / LateralityCollection Method / VolumeCollection TimeReceived Time04/18/2025 10:10 AM EDT04/18/2025 10:15 AM EDT Narrative [facility] - 04/18/2025 12:15 PM EDT Authorizing ProviderResult TypeResult StatusCorey Heike DOCLINISYNCFinal Result Performing OrganizationAddB[facility] CodePhone Number [facility] * ALL LUTEINIZING HORMONE (04/18/2025 10:10 AM [...] OrganizationAddressCity/State/ZIP CodePhone Number [facility] * ALL FOLLICLE STIMULATING HORMONE (04/18/2025 10:10 AM EDT)ComponentValueRef RangeTest MethodAnalysis TimePerformed AtPathologist SignatureFSH6.7. mIU/mL TBHComment: ? Adult Female ? Range ?Follicular phase ?3.5 - ??12.5 ?Ovulation phase ? 4.7 - ??21.5 ?Luteal phase ?1.7 - ?? 7.7 ?Postmenopausal ? 25.8 - 134.8 Performed at: ??CB - [facility] [address] ??[id number] Cna Instructor: Kai Schuster PhD, Phone: ??[phone] Specimen (Source)Anatomical Location / LateralityCollection Method / Volume Collection TimeReceived Time04/18/2025 10:10 AM EDT04/18/2025 10:15 AM EDT Narrative [facility] - 04/19/2025 7:09 AM EDT Authorizing ProviderResult TypeResult StatusCorey Heike DOCLINISYNCFinal Result Performing OrganizationAddressCity/[facility]/ZIP CodePhone Number [facility] * (ABNORMAL) ALL CBC WITH AUTO DIFF (04/18/2025 10:10 AM EDT)ComponentValueRef RangeTest MethodAnalysis TimePerformed AtPathologist SignatureTBH WBC4.84.0 - 11.0 10 3/uLTBHTBH RBC4.594.20 - 5.40 10 6/uLTBHTBH HGB14.612.0 - 16.0 g/dLTBH TBH HCT42.836.0 - 48.0 %TBHTBH MCV93.281.0 - 99.0 fLTBHTBH MCH31.826.7 - 34.0 pgTBHTBH MCHC34.129.9 - 35.2 g/dLTBHTBH RDW11.411.0 - 15.0 %TBHTBH MAU563414 - 450 10 3/uLTBHTBH MPV11.09.5 - 13.5 [...] DateEnd Date Zenon Alberts DO [address] [place] [address] PCP - GeneralInternal Medicine03/10/25
--- OUTSIDE RECORDS SUMMARY | 2025-06-27 07:15 | XMS_ITS | Encounter Summary ---
Author Organization [facility] Address [address] [place] [address] Care Team Providers Care Prosthetics Technician Name Role Phone Zenon Alberts DO Primary Care Provider [phone] Encounter Details DateTypeDepartmentCare Team (Latest Contact Info)Hrjmvvkacyk26/03/2025linisync Result Encounter [facility] External Department Unsolicited Jeremiah Burroughs DO [address] [place], [facility] Social History Tobacco UseTypesPacks/DayYears UsedDateSmoking Tobacco: NeverAlcohol UseStandard Drinks/WeekCommentsYes2 (1 standard drink = 0.6 oz pure alcohol)1-2 drinks/monthly or lessCommentsNoSex and Gender InformationValueDate RecordedSex Assigned at RvwdqSbhkiw49/23/2023 3:49 PM EDTLegal SexFemale 10/04/2022 11:08 PM EDTGender LghlssofRitwoo43/23/2023 3:49 PM EDTSexual OrientationNot on filedocumented as of this encounter Plan of Treatment DateTypeDepartmentCare Team (Latest Contact Info)Nkovhxgnvtu16/19/2025 10:30 AM ESTAncillary Procedure [facility] [address] [place] [address] 07/10/2025 11:00 AM ESTInitial [facility] [address] [facility] [place] [address] documented as of this encounter Procedures Procedure NamePriorityDate/TimeAssociated DiagnosisCommentsTBH PREG QUANT HCG Ezrqwcz3506/24/2025 7:45 AM EST documented in this encounter Results * [facility] PREG QUANT HCG (06/24/2025 7:45 AM EST)ComponentValueRef RangeTest Method Analysis TimePerformed AtPathologist SignatureHCG QUANTITATIVE3,371mIU/mLTBH Comment: 5-50 ? 0.2-1 WEEK 50-500 ? [...] DOCLINISYNCFinal Result Performing OrganizationAddressCity/State/ZIP CodePhone Number [facility] documented in this encounter Visit Diagnoses Not on filedocumented in this encounter Care Teams Team MemberRelationshipSpecialtyStart DateEnd Date Zenno Alberts DO [address] [place] [phone] PCP - GeneralInternal Medicine03/10/25documented as of this encounter
--- OUTSIDE RECORDS SUMMARY | 2025-06-27 07:15 | XMS_ITS | Encounter Summary ---
Author Organization [facility] Address [address] [place] [address] Care Team Providers Care Rags Laborer Name Role Phone Zenon Alberts DO Primary Care Provider [phone] Encounter Details DateTypeDepartmentCare Team (Latest Contact Info)Ffcxmmmpdfv80/02/2025Telephone [facility] [address] [place] [address] [place] [address] Yessi Mena LPN Social History Tobacco UseTypesPacks/DayYears UsedDateSmoking Tobacco: NeverAlcohol UseStandard Drinks/WeekCommentsYes2 (1 standard drink = 0.6 oz pure alcohol)1-2 drinks/monthly or lessCommentsNoSex and Gender InformationValueDate RecordedSex Assigned at OarluKswexj07/23/2023 3:49 PM EDTLegal SexFemale 10/04/2022 11:08 PM EDTGender DmlvdncwWmngid56/23/2023 3:49 PM EDTSexual OrientationNot on filedocumented as [...] draws. Order will be sent to lab ([facility]). 11:14am Called patient LMOM that new order for 2 lab draws was sent to [facility] lab. Advised patient to call office with any concerns/questions. Yessi De Luna LPN documented in this encounter Plan of Treatment DateTypeDepartmentCare Team (Latest Contact Info)Vvedvjaytvr03/19/2025 10:30 AM ESTAncillary Procedure [facility] [address] [place] [phone] 07/10/2025 11:00 AM ESTInitial [facility] [address] [facility] [place] [address] NameTypePriorityAssociated DiagnosesOrder SchedulehCG, quantitative, LabRoutine Positive urine test ([facility]) PCOS (polycystic ovarian syndrome) History of miscarriage Expected: 06/23/2025 (Approximate), Expires: 06/23/2026documented as of this encounter Visit Diagnoses Diagnosis Positive urine test ([facility]) PCOS (polycystic ovarian syndrome) Polycystic ovaries History of miscarriage Personal history of other genital system and obstetric disorders documented in this encounter Care Teams Team MemberRelationshipSpecialtyStart DateEnd Date Zenon Alberts DO [address] [facility] [place] [address] PCP - GeneralInternal Medicine03/10/25documented as of this encounter
== END 2025-06-27 07:12 | disposition home or self-care (01) ==
LOC: LAB 07:11
PROVIDERS: PCP Family Medicine; Visit Provider Obstetrics & Gynecology
DX: Z32.01 Encounter for pregnancy test, result positive (principal); E28.2 Polycystic ovarian syndrome; Z87.59 Personal history of other complications of pregnancy, childbirth and the puerperium; N92.6 Irregular menstruation, unspecified
CPT/HCPCS: 36415; 84702